=== PATIENT | female | born 1970 | race Caucasian/White ===

== ENCOUNTER 2017-06-30 15:33 | Emergency (ER) | payer OTHER ==
[~2017-06-30] VITALS: Ht 175.3 cm; Wt 112.0 kg
[~2017-06-30 15:33] MED LIST: ADVAIR 250-501 EACH INH; AMITIZA8 MCG PO; AMOXICILLIN500 MG PO; ANAPROX DS550 MG PO; ASPIRIN EC81 MG PO; AZASAN75 MG PO; BUTALB-ACETAMI1 EACH PO; CALAN SR240 MG PO; CALAN120 MG PO; CARAFATE1 GM/10 ML PO; CATAPRES-TTS 31 EACH TD; CHANTIX1 MG PO; DICYCLOMINE HCL10 MG PO; DULERA 200 MCG/13 GM INH; FIORICET-COD 31 EACH PO; FLOMAX0.4 MG PO; FLONASE2 SPRAY NS; GABAPENTIN600 MG PO; GEODON80 MG NG; GLUCOPHAGE500 MG PO; HALOPERIDOL2 MG PO; HUMALOG100 UNIT/1 SUB-Q; HYDROCODON-ACE1 EA11 PO; HYDROCODON-ACE1 EA14 PO; HYDROCODON-ACE1 EAC8 PO; HYOMAX0.125 MG PO; IBUPROFEN200 MG PO; IMITREX100 MG PO; IMURAN50 MG PO; KEFLEX500 MG PO; LANTUS100 UNITS/ SUB-Q; LEVOTHROID300 MCG PO; LIDODERM700 MG TOP; LOMOTIL TABLET1 EACH PO; LORAZEPAM0.5 MG PO; METOPROLOL TART50 MG PO; NORCO 10-325 T1 EACH PO; NORCO 7.5-3251 EACH PO; OMEPRAZOLE20 MG PO; PERCOCET 5-3251 EACH PO; PREDNISONE20 MG PO; PROMETHAZINE HC25 M1 PO; PROVENTIL HFA6.7 GM INH; RANITIDINE HCL150 MG PO; RANITIDINE HCL300 M1 PO; REGLAN10 MG PO; ROBAXIN-750750 MG PO; SIMVASTATIN20 MG PO; SULFAZINE EC500 MG PO; SUPER B COMPLE150 MG PO; TIZANIDINE HCL4 MG PO; TOPROL XL100 MG PO; TOPROL XL25 MG PO; TRAZODONE HCL100 MG PO; VENLAFAXINE HC225 MG PO; VENLAFAXINE HCL75 MG PO; VENTOLIN HFA18 GM IH; VENTOLIN HFA18 GM INH; VITAMIN D50000 UNIT PO; ZIPRASIDONE HCL60 MG PO; ZOFRAN ODT4 MG SL; ZOFRAN ODT8 MG PO; ZOFRAN8 MG PO
--- NOTE | 2017-06-30 18:33 | EKG ---
[facility] [address] [facility] [place] [address] Signed Sinus rhythm with occasional premature ventricular complexes Left axis deviation Abnormal ECG When compared with ECG of 29-SEP-2016 14:25, premature ventricular complexes are now present Confirmed by SUKHJINDER KHAN MD ([id number]) on 06/30/2017 6:33:39 PM Electronically Signed By: SUKHJINDER KHAN MD 06/30/17 1833 PATIENT NAME: CARLINE ESCOBAR MICHAEL Electrocardiogram DATE OF : 72 PHYSICIAN: SUKHJINDER KHAN MD REPORT #: [id number] REPORT IS CONFIDENTIAL AND NOT TO BE RELEASED WITHOUT AUTHORIZATION
== END 2017-06-30 18:32 | disposition home or self-care (01) ==
LOC: ED 15:33
DX: I49.3 Ventricular premature depolarization (principal); E86.0 Dehydration; E11.9 Type 2 diabetes mellitus without complications; I10 Essential (primary) hypertension; E03.9 Hypothyroidism, unspecified; J44.9 Chronic obstructive pulmonary disease, unspecified; F31.9 Bipolar disorder, unspecified; F17.200 Nicotine dependence, unspecified, uncomplicated; Z88.1 Allergy status to other antibiotic agents; Z91.048 Other nonmedicinal substance allergy status; Z88.8 Allergy status to other drugs, medicaments and biological substances; Z79.899 Other long term (current) drug therapy; Z79.4 Long term (current) use of insulin
CPT/HCPCS: 71045; 80053; 81001; 84484; 85025; 85610; 86850; 86900; 86901; 93005; 93010; 96374; 99284; J7040

== ENCOUNTER 2017-08-08 10:27 | Inpatient (IN) | payer OTHER ==
[~2017-08-08] VITALS: Ht 175.3 cm; Wt 122.8 kg
--- OUTSIDE RECORDS SUMMARY | ~2017-08-08 | XMS | Clinical Summary ---
Demographics + + + | Address | [address] | | | [place] [address] | + + + | Home Phone [...] | Organization | [facility] | | | and [facility] | + + + | Address | Unknown | + + + | Phone | Unavailable | + + + Support + + + + + | Name | Relationship | Address | Phone | + + + + + | Isabella Min | ECON | [address] | | | | | [place] [address] | | + + + + + Care Team Providers + +------+ + | Care Dispenser Operator Name | Role | Phone | [...] | 09/18 | | Activ | | [id number] | every 6 hours as | | [...] | 1971 | [phone] | [place] [address] | | | kristy | | | [phone] | | + +--------+ +--------+ + +
--- OUTSIDE RECORDS SUMMARY | ~2017-08-08 | XMS | Clinical Summary ---
Demographics + + + | Address | [address] | | | [place] [address] | + + + | Home Phone [...] + + + | Author | [facility] | + + + | Organization | [facility] | + + + | Address | [...] | + + +---------+ + | Stephan Johnosn | ECON | Unknown | | + + +---------+ + | Cristi Dave | ECON | Unknown | | + + +---------+ + Care Team Providers + +------+ + | Care Director Of Events Name | Role | Phone | + [...] | | | | Activ | | [id number] | mouth every 4 (four) | | [...] well.Last Cath: naLast Echo, | | 09/19/2015 ([facility]'s): TDS, mild concentric LVH, LVEF 65-70%, [...] | [place] | | | | [phone] | | | INTERNET SALES REPRESENTATIVE | | | | | + +--------+ [...] | [place]y | | | [phone] | [phone] | + +--------+ +--------+ + +
[2017-08-08] MEDS ORDERED: VERAPAMIL ER240 M1 PO (10:46)
[2017-08-08] MEDS ORDERED: ZIPRASIDONE HCL80 MG PO (10:54)
[2017-08-08] MEDS ORDERED: KHEDEZLA100 MG PO (10:55)
[2017-08-08] MEDS ORDERED: LYRICA150 MG PO (10:57)
[2017-08-08] MEDS ORDERED: ZEBUTAL 50-3251 EACH PO (10:58)
[2017-08-08] MEDS ORDERED: BUSPIRONE HCL10 MG PO (11:00)
[2017-08-08] MEDS ORDERED: METFORMIN HCL500 MG PO (11:01)
--- OUTSIDE RECORDS SUMMARY | 2017-08-08 11:35 | XMS | Clinical Summary ---
Demographics + + + | Address | [address] | | | [place] [address] | + + + | Home Phone | | + + + | Preferred Language | Unknown | + + + | Marital Status | Single | + + + | Restorationism Affiliation | Unknown | + + + | Race | Unknown | + + + | Ethnic Group | Unknown | + + + Author + + + | Author | [facility] | + + + | Organization | [facility] | + + + | Address | Unknown | + + + | Phone | Unavailable | + + + Support + + +---------+ + | Name | Relationship | Address | Phone | + + +---------+ + | Isabella Whitehead | ECON | Unknown | | + + +---------+ + | Robson Min | ECON | Unknown | | + + +---------+ + | Stephan Johnson | ECON | Unknown | | + + +---------+ + | Cristi Dave | ECON | Unknown | | + + +---------+ + Care Team Providers + +------+ + | Care Wood Scrap Handler Name | Role | Phone | + +------+ + | Bart Ba DO | PP | | + +------+ + Allergies + + + + + + | Active Allergy | Reactions | Severity | Noted | Comments | | | | | Date | | + + + + + + | Azithromycin | Rash | Medium | 03/21/20 | | | | | | 13 | | + + + + + + | Lamotrigine | Rash | Medium | 03/21/20 | | | | | | 13 | | + + + + + + | Adhesive Tape | Other (See Comments) | Medium | 03/21/20 | Skin sensitivity | | | | | 13 | | + + + + + + Current Medications + + + +---------+------+------+-------+ | Prescription | Sig. | Disp. | Refills | Star | End | Statu | | | | | | t | Date | s | | | | | | Date | | | + + + +---------+------+------+-------+ | simvastatin | Take 20 mg by mouth | | | | | Activ | | (ZOCOR) 20 MG tablet | nightly. | | | | | e | + + + +---------+------+------+-------+ | gabapentin | Take 300 mg by mouth | | | | | Activ | | (NEURONTIN) 600 MG | 3 (three) times | | | | | e | | tablet | daily. | | | | | | + + + +---------+------+------+-------+ | metoprolol | Take 50 mg by mouth | | | | | Activ | | (LOPRESSOR) 25 MG | 2 (two) times daily. | | | | | e | | tablet | | | | | | | + + + +---------+------+------+-------+ | ranitidine | Take 150 mg by mouth | | | | | Activ | | (ZANTAC) 150 MG | 2 (two) times | | | | | e | | tablet | daily. | | | | | | + + + +---------+------+------+-------+ | metFORMIN | Take 1,000 mg by | | | | | Activ | | (GLUCOPHAGE) 500 MG | mouth 2 (two) times | | | | | e | | tablet | daily with meals. | | | | | | + + + +---------+------+------+-------+ | LORazepam (ATIVAN) | Take 0.5 mg by mouth | | | | | Activ | | 0.5 MG tablet | every 6 (six) hours | | | | | e | | | as needed. | | | | | | + + + +---------+------+------+-------+ | ziprasidone | Take 80 mg by mouth | | | | | Activ | | (GEODON) 80 MG | 2 (two) times daily | | | | | e | | capsule | with meals. | | | | | | + + + +---------+------+------+-------+ | Cholecalciferol | Take 50,000 | | | | | Activ | | (VITAMIN D PO) | Units/day by mouth | | | | | e | | | once a week. | | | | | | + + + +---------+------+------+-------+ | azaTHIOprine | Take 50 mg by mouth | | | | | Activ | | (IMURAN) 50 MG | 2 (two) times daily. | | | | | e | | tablet | | | | | | | + + + +---------+------+------+-------+ | Albuterol Sulfate | Inhale into the | | | | | Activ | | (VENTOLIN HFA IN) | lungs as needed. | | | | | e | + + + +---------+------+------+-------+ | | Take 1 tablet by | | | | | Activ | | etatkmirvg-xjdcvmw-l | mouth every 4 (four) | | | | | e | | affeine (BUTALBITAL | hours as needed. | | | | | | | COMPOUND/ASA) | | | | | | | | 50-325-40 MG per | | | | | | | | tablet | | | | | | | + + + +---------+------+------+-------+ | | Inhale 1 puff into | 2 each | 0 | 12/0 | | Activ | | fluticasone-salmeter | the lungs 2 (two) | | | 6/20 | | e | | ol (ADVAIR DISKUS) | times daily. | | | 13 | | | | 250-50 MCG/DOSE | | | | | | | + + + +---------+------+------+-------+ | Nebulizer (medical | Dispense and provide | 1 each | 0 | 12/0 | | Activ | | device) | instruction as | | | 6/20 | | e | | | needed. | | | 13 | | | + + + +---------+------+------+-------+ | | Take 3 mLs by | 360 mL | 0 | 12/0 | | Activ | | ipratropium-albutero | nebulization 4 | | | 6/20 | | e | | l (DUONEB) 0.5-2.5 | (four) times daily | | | 13 | | | | mg/3mL | as needed. | | | | | | + + + +---------+------+------+-------+ | sulfaSALAzine | Take 500 mg by mouth | | | | | Activ | | (AZULFIDINE) 500 MG | 3 (three) times | | | | | e | | tablet | daily. | | | | | | + + + +---------+------+------+-------+ | omeprazole | Take 20 mg by mouth | | | | | Activ | | (PRILOSEC) 20 MG | every morning before | | | | | e | | capsule | breakfast. | | | | | | + + + +---------+------+------+-------+ | insulin lispro | Inject into the | | | | | Activ | | protamine-insulin | skin 2 (two) times | | | | | e | | lispro (HUMALOG | daily before meals. | | | | | | | 75/25) (75-25) 100 | kwikpen 35 units sc | | | | | | | UNIT/ML injection | bid | | | | | | + + + +---------+------+------+-------+ | venlafaxine | Take 225 mg by mouth | | | | | Activ | | (EFFEXOR-XR) 75 MG | daily with | | | | | e | | 24 hr capsule | breakfast. | | | | | | + + + +---------+------+------+-------+ | cloNIDine | Place 1 patch onto | 4 patch | 1 | 05/2 | | Activ | | (CATAPRES) 0.2 | the skin once a | | | 6/20 | | e | | MG/24HR | week. | | | 15 | | | + + + +---------+------+------+-------+ | lactobacillus | Take 1 packet by | 20 each | 1 | 05/2 | | Activ | | (FLORANEX) granules | mouth 2 (two) times | | | 6/20 | | e | | | daily. | | | 15 | | | + + + +---------+------+------+-------+ | traZODone | Take 100 mg by mouth | | | | | Activ | | (DESYREL) 100 MG | nightly. | | | | | e | | tablet | | | | | | | + + + +---------+------+------+-------+ | B Complex Vitamins | Take by mouth. | | | | | Activ | | (VITAMIN B COMPLEX) | | | | | | e | | TABS | | | | | | | + + + +---------+------+------+-------+ | levothyroxine | Take 50 mcg by mouth | | | | | Activ | | (SYNTHROID) 50 MCG | every morning | | | | | e | | tablet | before breakfast. | | | | | | + + + +---------+------+------+-------+ | pregabalin | Take 50 mg by mouth | | | | | Activ | | (LYRICA) 50 MG | 3 (three) times | | | | | e | | capsule | daily. | | | | | | + + + +---------+------+------+-------+ | tiZANidine | Take 4 mg by mouth | | | | | Activ | | (ZANAFLEX) 4 MG | every 6 (six) hours | | | | | e | | tablet | as needed. | | | | | | + + + +---------+------+------+-------+ | ziprasidone | Take 60 mg by mouth | | | | | Activ | | (GEODON) 60 MG | daily. | | | | | e | | capsule | | | | | | | + + + +---------+------+------+-------+ | | Take 1 tablet by | | | | | Activ | | HYDROcodone-acetamin | mouth every 6 (six) | | | | | e | | ophen (NORCO) | hours as needed for | | | | | | | 7.5-325 MG per | Pain. | | | | | | | tablet | | | | | | | + + + +---------+------+------+-------+ | busPIRone (BUSPAR) | Take 5 mg by mouth 2 | | | | | Activ | | 5 MG tablet | (two) times daily. | | | | | e | + + + +---------+------+------+-------+ | aspirin 81 MG | Take 81 mg by mouth | | | | | Activ | | tablet | daily. | | | | | e | + + + +---------+------+------+-------+ | insulin glargine | Inject into the | | | | | Activ | | (LANTUS) 100 UNIT/ML | skin nightly. | | | | | e | | injection | | | | | | | + + + +---------+------+------+-------+ | linaclotide | Take 145 mcg by | | | | | Activ | | (LINZESFany) 145 MCG | mouth every morning | | | | | e | | capsule | before breakfast. | | | | | | + + + +---------+------+------+-------+ Active Problems + + + | Problem | Noted Date | + + + | Metabolic encephalopathy | 09/06/2014 | + + + | Kussmaul breathing | 09/06/2014 | + + + | Acute respiratory alkalosis | 09/06/2014 | + + + | Methamphetamine abuse | 09/06/2014 | + + + | Drug overdose | 09/06/2014 | + + + | Hypokalemia | 09/06/2014 | + + + | Hypomagnesemia | 09/06/2014 | + + + | Hypophosphatemia | 09/06/2014 | + + + | Sinus tachycardia | 09/06/2014 | + + + | Bacterial pneumonia, unspecified | 03/21/2013 | + + + | COPD exacerbation | 03/21/2013 | + + + + + | Last Assessment & Plan: COPD, trying to quit.CT-chest, | | 03/22/2013: Scattered multifocal areas of scarring or atelectasis | | throughout the lungs. 2 cystic/cavitary lesions, right upper | | lobe, right lower lobe. Apparently, a repeat CT scan of the | | chest in 2014 when she was hospitalized for drug overdose, showed | | similar findings, perhaps the cavitary lesions were smaller in | | size. | + + + + + | Elevated brain natriuretic peptide (BNP) level | 03/21/2013 | + + + | Diabetes mellitus, type 2 | | + + + + + | Last Assessment & Plan: DM2, managed by PCP. | + + + +---+ | Hyperlipidemia | | + +---+ | Hypertension | | + +---+ + + | Last Assessment & Plan: Hypertension. 45yo WF, seems to | | be controlled today. She is complaining of chest discomfort, | | that appears to be relatively constant, prolonged. She has | | severe RA, history of pyoderma gangrenosa, activity quite | | limited. She is a long-time smoker, continues to smoke. Today's | | ECG normal, I reassured her that her chest discomfort is | | noncardiac in origin. I encouraged her to continue with her | | medications continue to try to stop smoking. She returns to her | | PCP, will follow her clinically as well.Last Cath: naLast Echo, | | 09/19/2015 [facility]): TDS, mild concentric LVH, LVEF 65-70%, | | no significant valvular stenosis or regurgitation, no Pericardial | | effusion.Last Stress Test,03/23/2013: Adenosine MPI, patchy | | uptake, but no ischemia or infarction, LVEF 60%.ECG, 10/16/2015: | | NSR, 85bpm. | + + + +---+ | Bipolar 2 disorder | | + +---+ | Current smoker | | + +---+ | RA (rheumatoid arthritis) | | + +---+ + + | Last Assessment & Plan: Advanced RA. | + + + +---+ | Obesity (BMI 30.0-34.9) | | + +---+ Resolved Problems + + + + | Problem | Noted | Resolved | | | Date | Date | + + + + | Hypoxemia | 03/21/20 | | | | 13 | 3 | + + + + | ARF (acute renal failure) | 03/21/20 | | | | 13 | 3 | + + + + | Hyponatremia | 03/21/20 | 12/06/201 | | | 13 | 3 | + + + + | Hyperkalemia | 03/21/20 | | | | 13 | 3 | + + + + | Abnormal LFTs | 03/21/20 | | | | 13 | 3 | + + + + | Hypomagnesemia | 03/21/20 | | | | 13 | 3 | + + + + Immunizations + + + + | Name | Dates Previously Given | Next Due | + + + + | Pneumococcal | 03/22/2013 | | | Polysaccharide | | | | 23-valent | | | + + + + Family History + + +------+ + | Medical History | Relation | Name | Comments | + + +------+ + | Diabetes | Father | | | + + +------+ + | Hypertension | Father | | | + + +------+ + | Diabetes | Mother | | | + + +------+ + | Hypertension | Mother | | | + + +------+ + | Heart Problems | Paternal | | | | | Grandfath | | | | | er | | | + + +------+ + | Heart Problems | Paternal | | | | | Grandmoth | | | | | er | | | + + +------+ + | Heart attack | Paternal | | | | | Uncle | | | + + +------+ + + +------+ + + | Relation | Name | Status | Comments | + +------+ + + | Father | | Alive | | + +------+ + + | Mother | | Alive | | + +------+ + + | Paternal Grandfather | | | | + +------+ + + | Paternal Grandmother | | | | + +------+ + + | Paternal Uncle | | | | + +------+ + + Social History + + + +--------+------+ | Tobacco Use | Types | Packs/Day | Years | Date | | | | | Used | | + + + +--------+------+ | Current Every Day | Cigarettes | 2 | 20 | | | Smoker | | | | | + + + +--------+------+ + +---+---+---+ | Smokeless Tobacco: | | | | | Never Used | | | | + +---+---+---+ + + | Tobacco Cessation: Ready to Quit: No; Counseling Given: Yes | + + + + +---------+ + | Alcohol Use | Drinks/We | oz/Week | Comments | | | ek | | | + + +---------+ + | Yes | 0 | 0.0 | | | | Standard | | | | | drinks or | | | | | | | | | | equivalen | | | | | t | | | + + +---------+ + + + + | Sex Assigned at | Date Recorded | | | | + + + | Not on file | | + + + Last Filed Vital Signs + + + + | Vital Sign | Reading | Time Taken | + + + + | Blood Pressure | 128/68 | 10/16/2015 10:59 AM PDT | + + + + | Pulse | 94 | 10/16/2015 10:59 AM PDT | + + + + | Temperature | 37.1 C (98.8 F) | 09/11/2014 3:36 PM PDT | + + + + | Respiratory Rate | 18 | 10/16/2015 10:59 AM PDT | + + + + | Oxygen Saturation | 94% | 10/16/2015 10:59 AM PDT | + + + + | Inhaled Oxygen | - | - | | Concentration | | | + + + + | Weight | 112.4 kg (247 lb | 10/16/2015 10:59 AM PDT | | | 12.8 oz) | | + + + + | Height | 174 cm (5' 8.5") | 10/16/2015 10:59 AM PDT | + + + + | Body Mass Index | 37.13 | 10/16/2015 10:59 AM PDT | + + + + Plan of Treatment + + + + + | Health Maintenance | Due Date | Last Done | Comments | + + + + + | Diabetic Eye Exam | | | | | | 2 | | | + + + + + | Diabetic Foot Exam | | | | | | 2 | | | + + + + + | Microalbumin | | | | | Screening | 2 | | | + + + + + | Vaccine: | | | | | Dtap/Tdap/Td (1 - | 1 | | | | Tdap) | | | | + + + + + | Cervical Cancer | | | | | Screening (Pap) | 3 | | | + + + + + | Hemoglobin A1c | | 09/06/2014, 03/21/2013 | | | | 5 | | | + + + + + | Vaccine: Influenza | | | | | (Season Ended) | 8 | | | + + + + + | Vaccine: | Completed | 03/22/2013 | | | Pneumococcal 19-64 | | | | | (PPSV23 only) Medium | | | | | Risk | | | | + + + + + Results Not on filefrom Last 3 Months Insurance + +--------+ +------+-------+ + | Payer | Benefi | Subscriber | Type | Phone | Address | | | t Plan | ID | | | | | | / | | | | | | | Group | | | | | + +--------+ +------+-------+ + | MEDICAID | [place] | xxxxxxxx | | | [address] | | | [address] | | | | [place] | | | [place] | | | | [phone] | | | RN CLINICAL | | | | | + +--------+ +------+-------+ + + +--------+ +--------+ + + | Guarantor Name | Accoun | Relation to | Date | Phone | Billing Address | | | t Type | Patient | of | | | | | | | | | | + +--------+ +--------+ + + | CARLINE MIN | Person | Self [birth year] | Home: | [address] | | al/Fam | | 1971 | [phone] [place] | | | [place] | | [phone] | + +--------+ +--------+ + +
--- OUTSIDE RECORDS SUMMARY | 2017-08-08 11:35 | XMS | Clinical Summary ---
Demographics + + + | Address | [address] | | | [place] [address] | + + + | Home Phone | | + + + | Preferred Language | Unknown | + + + | Marital Status | Single | + + + | Judaism Affiliation | Unknown | + + + | Race | Unknown | + + + | Ethnic Group | Unknown | + + + Author + + + | Author | [facility] | | | and [place] | + + + | Organization | [facility] | | | and [place] | + + + | Address | Unknown | + + + | Phone | Unavailable | + + + Support + + + + + | Name | Relationship | Address | Phone | + + + + + | Isabella Min | ECON | [address] | | | | | [place] [address] | | + + + + + Care Team Providers + +------+ + | Care Drywall Professional Name | Role | Phone | + +------+ + | Bart Ba DO | PP | | + +------+ + Allergies + + + + + + | Active Allergy | Reactions | Severity | Noted | Comments | | | | | Date | | + + + + + + | Azithromycin | | | 09/10/19 | | | | | | 12 | | + + + + + + | Lamotrigine | | | 10/08/19 | | | | | | 12 | | + + + + + + Current Medications + + +---------+---------+------+------+-------+ | Prescription | Sig. | Disp. | Refills | Star | End | Statu | | | | | | t | Date | s | | | | | | Date | | | + + +---------+---------+------+------+-------+ | SUMAtriptan | 04/20-1 tablet by | | | 08/18 | | Activ | | (IMITREX) 100 mg | mouth daily as | | | 08/06 | | e | | tablet | needed migraine | | | 12 | | | + + +---------+---------+------+------+-------+ | | One tablet by mouth | | | 09/18 | | Activ | | [id number] | every 6 hours as | | | 05/08 | | e | | affeine (BUTALBITAL | needed for migraine | | | 12 | | | | COMPOUND/ASA) per | | | | | | | | tablet | | | | | | | + + +---------+---------+------+------+-------+ | levothyroxine | Take 300 mcg by | | | | | Activ | | (SYNTHROID, | mouth Daily. | | | | | e | | LEVOTHROID) 300 MCG | | | | | | | | tablet | | | | | | | + + +---------+---------+------+------+-------+ | azaTHIOprine | Take 75 mg by mouth | | | 06/0 | | Activ | | (AZASAN) 75 MG TABS | 2 times daily. | | | 5/20 | | e | | | | | | 12 | | | + + +---------+---------+------+------+-------+ | ziprasidone | Take 80 mg by mouth | | | 06/0 | | Activ | | (GEODON) 60 MG | Daily. | | | 5/20 | | e | | capsule | | | | 12 | | | + + +---------+---------+------+------+-------+ | traZODone | Take 300 mg by mouth | | | | | Activ | | (DESYREL) 100 mg | nightly. | | | | | e | | tablet | | | | | | | + + +---------+---------+------+------+-------+ | promethazine | Take 25 mg by mouth | | | | | Activ | | (PHENERGAN) 25 mg | 3 times daily as | | | | | e | | tablet | needed. | | | | | | + + +---------+---------+------+------+-------+ | dicyclomine | Take 1 capsule by | 150 | 3 | 06/0 | | Activ | | (BENTYL) 10 mg | mouth every 6 hours | capsule | | 4/20 | | e | | capsule | as needed. | | | 14 | | | + + +---------+---------+------+------+-------+ | omeprazole | Take 1 capsule by | 90 | 3 | 06/0 | | Activ | | (PRILOSEC) 20 mg | mouth every morning | capsule | | 4/20 | | e | | capsule | (before breakfast). | | | 14 | | | + + +---------+---------+------+------+-------+ | | Take 1 tablet by | | | 05/2 | | Activ | | HYDROcodone-acetamin | mouth every 4 hours | | | 08/06 | | e | | ophen (NORCO) | as needed. | | | 12 | | | | 7.5-325 mg per | | | | | | | | tablet | | | | | | | + + +---------+---------+------+------+-------+ | LANTUS SOLOSTAR | Inject 20 Units | | | 02/0 | | Activ | | 100 UNIT/ML | under the skin | | | 10/06 | | e | | injection (pen) | nightly. | | | 17 | | | + + +---------+---------+------+------+-------+ | levothyroxine | Take one tablet | | | 04/19 | | Activ | | (SYNTHROID, | daily | | | 10/06 | | e | | LEVOTHROID) 50 mcg | | | | 17 | | | | tablet | | | | | | | + + +---------+---------+------+------+-------+ | ROMEZESS 290 MCG | Take one capsule | | | 01/3 | | Activ | | capsule | daily | | | 1/20 | | e | | | | | | 17 | | | + + +---------+---------+------+------+-------+ | LYRICA 75 MG | Take one capsule | | | 01/1 | | Activ | | capsule | three times daily | | | 6/20 | | e | | | | | | 17 | | | + + +---------+---------+------+------+-------+ | sulfaSALAzine | Take 1,000 mg by | | | 01/1 | | Activ | | (AZULFIDINE) 500 MG | mouth 2 times daily. | | | 6/20 | | e | | EC tablet | | | | 17 | | | + + +---------+---------+------+------+-------+ | cloNIDine | Place 1 patch onto | | | 01/2 | | Activ | | (CATAPRES) 0.3 mg/24 | the skin Once a | | | 0/20 | | e | | hr | week. | | | 17 | | | + + +---------+---------+------+------+-------+ | metFORMIN | Take 1,000 mg by | | | | | Activ | | (GLUCOPHAGE) 500 mg | mouth 2 times daily | | | | | e | | tablet | (with breakfast & | | | | | | | | dinner). | | | | | | + + +---------+---------+------+------+-------+ | aspirin 81 MG | Take 81 mg by mouth | | | | | Activ | | tablet | Daily. | | | | | e | + + +---------+---------+------+------+-------+ | busPIRone (BUSPAR) | Take 5 mg by mouth 2 | | | | | Activ | | 5 mg tablet | times daily. | | | | | e | + + +---------+---------+------+------+-------+ | tiZANidine | Take 4 mg by mouth | | | | | Activ | | (ZANAFLEX) 4 mg | nightly. | | | | | e | | tablet | | | | | | | + + +---------+---------+------+------+-------+ | CHANTIX CONTINUING | Take 1 mg by mouth 2 | | | 02/0 | | Activ | | MONTH JAYA 1 MG | times daily. | | | 2/20 | | e | | tablet | | | | 17 | | | + + +---------+---------+------+------+-------+ | ziprasidone | Take 80 mg by mouth | | | | | Activ | | (GEODON) 80 MG | nightly. | | | | | e | | capsule | | | | | | | + + +---------+---------+------+------+-------+ | ergocalciferol | Take 50,000 Units by | | | | | Activ | | (VITAMIN D-2) 50,000 | mouth Once a week. | | | | | e | | units capsule | | | | | | | + + +---------+---------+------+------+-------+ | simvastatin | Take 20 mg by mouth | | | | | Activ | | (ZOCOR) 20 mg tablet | nightly. | | | | | e | + + +---------+---------+------+------+-------+ | venlafaxine | Take 75 mg by mouth | | | | | Activ | | (EFFEXOR) 75 MG | Daily. | | | | | e | | tablet | | | | | | | + + +---------+---------+------+------+-------+ | VENTOLIN HFA 108 | Inhale 2 puffs into | | | | | Activ | | (90 BASE) MCG/ACT | the lungs every 4 | | | | | e | | inhaler | hours as needed for | | | | | | | | Wheezing. | | | | | | + + +---------+---------+------+------+-------+ Active Problems + + + | Problem | Noted Date | + + + | Bipolar II disorder (HCC) | 05/23/2015 | + + + | Alveolar hypoventilation | 05/23/2015 | + + + | COPD, mild (HCC) | 04/24/2014 | + + + | Type II diabetes mellitus (HCC) | 10/11/2012 | + + + | Rheumatoid arthritis (HCC) | 10/11/2012 | + + + | Hypothyroidism | 10/11/2012 | + + + | Tobacco use disorder | 10/11/2012 | + + + | HYPERTENSION | | + + + Resolved Problems + + + + | Problem | Noted | Resolved | | | Date | Date | + + + + | Hypoxia, sleep related | 09/07/19 | | | | 14 | 7 | + + + + | Chronic bronchitis (HCC) | 10/19/19 | | | | 13 | 6 | + + + + | OTHER DISEASES OF LUNG NOT ELSEWHERE CLASSIFIED | 09/10/19 | | | | 12 | 3 | + + + + | Other nonspecific abnormal finding of lung field | | | | | | 6 | + + + + | Bronchiectasis (HCC) | | | | | | 3 | + + + + | Empyema lung (HCC) | | | | | | 3 | + + + + + + | Overview: right | + + + +---+ + | Abnormal chest CT | | | | | | 3 | + +---+ + Immunizations + + + + | Name | Dates Previously Given | Next Due | + + + + | INFLUENZA PF 18 Y OR | 01/17/2014, 02/17/2013, 02/03/2012 | | | >,TRIVALENT | | | | RECOMBINANT | | | + + + + | INFLUENZA PF | 02/17/2016, 02/15/2015 | | | QUAD(PED/ADOL/ADULT) | | | | ,PSKT or VIAL | | | + + + + | PNEUMOCOCCAL | 04/24/2014 | | | CONJUGATE 13-VALENT | | | | (PCV13) | | | + + + + | PNEUMOCOCCAL | 03/19/2013, 04/04/2009 | | | POLYSACCHARIDE | | | | 23-VALENT (PPSV23) | | | + + + + Family History + + +------+ + | Medical History | Relation | Name | Comments | + + +------+ + | Tuberculosis | Brother | | | + + +------+ + | Anemia | Brother | | | + + +------+ + | Allergies | Brother | | | + + +------+ + | Allergies | Father | | | + + +------+ + | Diabetes | Father | | | + + +------+ + | Hypertension | Father | | | + + +------+ + | Obesity | Father | | | + + +------+ + | Other (see comment) | Father | | hypothyroid | + + +------+ + | Ulcer Disease | Father | | | + + +------+ + | Allergies | Mother | | | + + +------+ + | Diabetes | Mother | | | + + +------+ + | Emphysema | Mother | | | + + +------+ + | Hypertension | Mother | | | + + +------+ + | Obesity | Mother | | | + + +------+ + | Other (see comment) | Mother | | epilepsy | + + +------+ + | Ulcer Disease | Mother | | | + + +------+ + | Colon cancer | Other | | family hx | + + +------+ + | Prostate cancer | Other | | family hx | + + +------+ + | Arthritis | Other | | family hx of | + + +------+ + | Other (see comment) | Paternal | | rheumatic fever | | | Grandfath | | | | | er | | | + + +------+ + | Arthritis | Paternal | | | | | Grandmoth | | | | | er | | | + + +------+ + | Hypertension | Paternal | | | | | Grandmoth | | | | | er | | | + + +------+ + | Stroke | Paternal | | | | | Grandmoth | | | | | er | | | + + +------+ + + +------+--------+ + | Relation | Name | Status | Comments | + +------+--------+ + | Brother | | | | + +------+--------+ + | Brother | | | | + +------+--------+ + | Brother | | | | + +------+--------+ + | Father | | Alive | | + +------+--------+ + | Mother | | Alive | | + +------+--------+ + | Other | | | | + +------+--------+ + | Other | | | | + +------+--------+ + | Other | | | | + +------+--------+ + | Paternal Grandfather | | | | + +------+--------+ + | Paternal Grandmother | | | | + +------+--------+ + Social History + + + +--------+ + | Tobacco Use | Types | Packs/Day | Years | Date | | | | | Used | | + + + +--------+ + | Current Every Day | Cigarettes | 0.3 | 20 | Started: 07/25/1983 | | Smoker | | | | | + + + +--------+ + + +---+---+---+ | Smokeless Tobacco: | | | | | Never Used | | | | + +---+---+---+ + + | Tobacco Cessation: Ready to Quit: No; Counseling Given: No | | Comments: 05/26/16: Currently using Chantix | + + + + +---------+ + | Alcohol Use | Drinks/We | oz/Week | Comments | | | ek | | | + + +---------+ + | Yes | 0 | 0.0 | Rare | | | Standard | | | [...] + + + | Blood Pressure | 110/72 | 05/26/20161033 PST | + + + + | Pulse | 92 | 05/26/20161033 PST | + + + + | Temperature | 36.8 C (98.3 F) | 11/01/20131518 PDT | + + + + | Respiratory Rate | 16 | 11/01/20131518 PDT | + + + + | Oxygen Saturation | 94% | 05/26/20161033 PST | + + + + | Inhaled Oxygen | - | - | | Concentration | | | + + + + | Weight | 115.4 kg (254 lb 8 | 05/26/20161033 PST | | | oz) | | + + + + | Height | 167.6 cm (5' 6") | 05/26/20161033 PST | + + + + | Body Mass Index | 41.08 | 05/26/20161033 PST | + + + + Plan of Treatment + + + + + | Health Maintenance | Due Date | Last Done | Comments | + + + + + | Diabetic Eye Exam | | | | | (Bi-Annually) | 0 | | | + + + + + | Diabetic Foot Exam | | | | | | 0 | | | + + + + + | Vaccine: | | | | | Dtap/Tdap/Td (1 - | 1 | | | | Tdap) | | | | + + + + + | CERVICAL CANCER | | | | | SCREENING (PAP EVERY | 3 | | | | 3 YEARS 21-64 ) | | | | + + + + + | Hemoglobin A1c Q3 | | 07/27/2013 | | | Months | 4 | | | + + + + + | Microalbumin | | | | | Screening | 5 | | | + + + + + | Vaccine: Influenza | | 02/17/2016, 02/15/2015, | | | (Season Ended) | 8 | 01/17/2014, Additional history | | | | | exists | | + + + + + | Vaccine: | Completed | 03/19/2013, 04/04/2009 | | | Pneumococcal 19-64 | | | | | (PPSV23 only) Medium | | | | | Risk | | | | + + + + + Results Not on filefrom Last 3 Months Insurance + +--------+ +--------+ +---------+ | Payer | Benefi | Subscriber | Type | Phone | Address | | | t Plan | ID | | | | | | / | | | | | | | Group | | | | | + +--------+ +--------+ +---------+ | [employer] | [employer] | [phone] | Medica | [phone] | | MEDICAID HMO | HEALTH | | id | [phone] | | | | MDCD | | | | | | | [place] | | | | | + +--------+ +--------+ +---------+ + +--------+ +--------+ + + | Guarantor Name | Accoun | Relation to | Date | Phone | Billing Address | | | t Type | Patient | of | | | | | | | | | | + +--------+ +--------+ + + | CARLINE MIN | Person | Self [birth year] | Home: | [address] | | | al/Toni | | 1971 | [phone] | [place] [address] | | | kristy | | | [phone] | | + +--------+ +--------+ + +
--- OUTSIDE RECORDS SUMMARY | 2017-08-08 11:36 | XMS | Clinical Summary ---
Demographics + + + | Address | [address] | | | [place] [address] | + + + | Home Phone | | + + + | Preferred Language | Unknown | + + + | Marital Status | Single | + + + | Anabaptist Affiliation | Unknown | + + + | Race | Unknown | + + + | Ethnic Group | Unknown | + + + Author + + + | Author | [facility] | + + + | Organization | [facility] | + + + | Address | [...] Team Providers + +------+ + | Care Javascript Engineer Name | Role | Phone | + [...] | | | | Activ | | [id number] | mouth every 4 (four) | | [...] well.Last Cath: naLast Echo, | | 09/19/2015 ([facility]): TDS, mild concentric LVH, LVEF [...] | [place] | | | | [phone] | | | [employer] | | | | | + +--------+ [...] | kristy | | | [phone] | [phone] | + +--------+ +--------+ + +
--- OUTSIDE RECORDS SUMMARY | 2017-08-08 11:36 | XMS | Clinical Summary ---
Demographics + + + | Address | [address] | | | [place] [address] | + + + | Home Phone | | + + + | Preferred Language | Unknown | + + + | Marital Status | Single | + + + | Scientology Affiliation | Unknown | + + + | Race | Unknown | + + + | Ethnic Group | Unknown | + + + Author + + + | Author | [facility] | | | and [facility] | + + + | Organization | [facility] | | | and [facility] | + + + | Address | Unknown | + + + | Phone | Unavailable | + + + Support + + + + + | Name | Relationship | Address | Phone | + + + + + | Isabella Min | ECON | [address] | | | | | [place] [address] | | + + + + + Care Team Providers + +------+ + | Care Family Health Nurse Practitioner Name | Role | Phone | + [...] | 09/18 | | Activ | | [id number] | every 6 hours as | | [...] | 1971 | [phone] | [place] [address] | | | kristy | | | [phone] | | + +--------+ +--------+ + +
--- NOTE | 2017-08-08 16:21 | NUR ---
ASSESSMENT COMPLETED, PT VERY SLEEPY, OPENS EYES TO VOICE BUT FALLS ASLEEP QUICKLY. PT RESTING WITH HOB ELEVATED.
--- NOTE | 2017-08-08 16:55 | NUR ---
CPAP BACK IN PLACE, PT SINDY WELL.
--- NOTE | 2017-08-08 18:03 | NUR ---
PT SLEEPING SOUNDLY AT THIS TIME, VITALS WNL, PT SINDY CPAP WELL.
--- NOTE | 2017-08-08 18:05 | NUR ---
PT CAME TO UNIT AT ABOUT 1600, WAS ABLE TO TRANSFER TO BED WITH STANDBY ASSIST. PT SLIGHTLY CONFUSED AND HAD A VERY FLAT AFFECT. PT DENIES PAIN, NAUSEA, AND SOB AT THIS TIME. PT C/O WEAKNESS IN ALL LIMBS AND NUMBNESS/TINGLING. PT COOPERATIVE. PT NOT ORIENTED TO TIME OF DAY OR DAY OF THE WEEK. PT ABLE TO VOID LARGE AMOUNT USING BEDSIDE COMMODE. WHEN PT NOT ON CPAP SHE USES 4L VIA OXY MASK. PT ABLE TO ANSWER MOST OF 'S QUESTIONS. IV SITE IN RT UPPER ARM INTACT, NO REDNESS OR SWELLING, FLUIDS INFUSING EAISLY. BLOOD GLUCOSE 273, 5 UNITS INSULIN GIVEN. PT ORDERED DINNER, THEN FELL ASLEEP SHORTLY AFTER, HOWEVER WAS ABLE TO SINDY SIPS OF WATER AND 7-UP. VITALS WNL. PT SLEEPING SOUNDLY WITH CPAP IN PLACE. NICOTINE PATCH IN PLACE.
--- NOTE | 2017-08-08 19:10 | NUR ---
SHIFT REPORT RECEIVED FROM MARTHA NORTH. PT IS CURRENTLY EATING DINNER, HER SON AND GRANDDAUGHTER ARE IN THE ROOM. 4L O2 VIA NC IN PLACE. IVF INFUSING WNL.
--- NOTE | 2017-08-08 20:30 | NUR ---
ASSESSMENT COMPLETED. PT IS ALERT/ORIENTED AT THIS TIME, AFFECT IS FLAT. REPORTS 8/10 GENERALIZED PAIN WITH MUSCLE SPASMS, PRN NORCO AND ZANAFLEX GIVEN. LUNGS SOUND DIMINISHED AT THIS TIME, R.T. HAS BEEN IN TO GIVE BREATHING TREATMENT, 4L O2 VIA NC IN PLACE. HR REGULAR, SLIGHTLY TACHY AT 100-105. BOWEL TONES ACTIVE, DENIES NAUSEA, REPORTS SHE HASN'T HAD A BM SINCE 08/05, SENNA AND MIRALAX GIVEN. IV PATENT, INFUSING WNL. SKIN APPEARS GROSSLY INTACT, JOINTS APPEAR RE-FORMED D/T R.A. AND SHE HAS SCARS TO HER LOWER LEGS AND UPPER BACK, NO EDEMA NOTED. PT REPORTS NUMBNESS IN TINGLING IN HANDS AND FEET THAT SHE REPORTS IS NOT NORMAL FOR HER. CB, 3 UNITS NOVOLIN AND 10 UNITS LEVEMIR ADMINISTERED. PT PROVIDED WITH FRUIT CUP AND DIET SODA PER REQUEST. DENIES FURTHER NEEDS AT HIS TIME.
--- NOTE | 2017-08-08 21:00 | NUR ---
PT PLACED ON BIPAP AT 2049, PT REMOVED AT THIS TIME STATES "ITS MAKING ME TOO HOT." 4L O2 VIA NC REPLACED ON PT. PT STATES THAT HER PAIN IS NOT ANY BETTER, I EXPLAINED TO PT THAT IT WILL TAKE A LITTLE TIME FOR PAIN MEDICATION TO TAKE EFFECT. PRN TYLENOL ADMINISTERED AT THIS TIME. PT PROVIDED WITH ICE WATER AND JOE CRACKER PER REQUEST. PT STATES SHE IS TIRED AND READY TO SLEEP, WILL CONTINUE TO MONITOR.
--- NOTE | 2017-08-08 21:00 | NUR ---
PT PLACED ON BIPAP AT 2049, PT WAS RELUCTANT TO WEAR IT STATING SHE DIDN'T WANT TO. EXPLAINED THE BENEFITS OF WEARING IT AND ASKED PT TO TRY AND LEAVE IT ON FOR ONE HOUR. PT STATED SHE WAS AGREEABLE TO THIS PLAN, HOWEVER, PT REMOVED BIPAP AT THIS TIME AND IS REFUSING TO WEAR IT, STATES "ITS MAKING ME TOO HOT." 4L O2 VIA NC REPLACED ON PT. PT STATES THAT HER PAIN IS NOT ANY BETTER, I EXPLAINED TO PT THAT IT WILL TAKE A LITTLE TIME FOR PAIN MEDICATION TO TAKE EFFECT. PRN TYLENOL ADMINISTERED AT THIS TIME. PT PROVIDED WITH ICE WATER AND JOE CRACKER PER REQUEST. PT STATES SHE IS TIRED AND READY TO SLEEP, WILL CONTINUE TO MONITOR.
--- NOTE | 2017-08-08 22:44 | NUR ---
PT APPEARS TO BE SLEEPING AT THIS TIME, NO APPARENT DISTRESS. RESPIATIONS EVEN AND UNLABORED, 4L O2 VIA NC IN PLACE. RR:17, SPO2: 92%. HR:100. IVF INFUSING WNL. WILL ALLOW FOR REST AND CONTINUE TO MONITOR.
--- NOTE | 2017-08-08 23:09 | NUR ---
PT CALLED AND REQUESTED TO USE BATHOOM, UP TO BSC WITH SBA, VOIDED 950ML AND THEN RETUNED TO BED. OFFERED TO PLACE PT ON BIPAP BUT SHE CONINUES TO REFUSE. DENIES SOB. LUNGS SOUND DIMINISHED THROUGHOUT, 4L O2 VIA NC REMAINS IN PLACE, RR:26, SPO2: 94%. PT PROVIDED WITH ICE WATER AND ANOTHE DIET SODA. DENIES FURTHER REQUESTS AT THIS TIME, CALL LIGHT IS WITHIN REACH.
--- NOTE | 2017-08-09 00:11 | NUR ---
PT SLEEPING AT THIS TIME, NO APPARENT DISTRESS. RESPIRATIONS EVEN AND UNLABORED, RR:17, SPO2: 100% ON 4L O2. HR:95. WILL ALLOW FOR REST AND CONTINUE TO MONITOR.
--- NOTE | 2017-08-09 00:45 | NUR ---
PT CALLED AND REPORTED 8/10 GENERALIZED PAIN. NOT TIME FOR PRN PAIN MEDICATION, DR. ALBARADO CALLED AND ORDER RECEIVED FOR 1 TIME DOSE OF PO NORCO 7.5/325MG. PT THEN UP TO BSC TO VOID AND THEN RETURN TO BED. PT CONTINUES TO REFUSE BIPAP, 4L O2 VIA NC REMAINS IN PLACE. FRESH ICE WATER PROVIDED. NO FURTHER REQUESTS AT THIS TIME, WILL CONTINUE TO MONITOR.
--- NOTE | 2017-08-09 02:00 | NUR ---
PT UP TO BSC WITH SBA TO VOID AND THEN RETURNED TO BED. DIET SODA PROVIDED PER REQUEST. NO FURTHER REQUESTS AT THIS TIME.
--- NOTE | 2017-08-09 02:40 | NUR ---
0200: AFTER RETURNING TO BED FROM BS, PT'S BP: 190/96(118). AFTER RESTING IN BED FOR 15MIN BP: 190/101(123). CALLED DR. ALBARADO AND RECEIVED ONE TIME ORDER FOR 10MG IV HYDRALAZINE, GIVEN AT THIS TIME. PT UP TO [facility] AGAIN AT THIS TIME AND THEN RETURNED TO BED. PRN TYLENOL GIVEN FOR HEADACHE. NO FURTHER REQUESTS AT THIS TIME.
--- NOTE | 2017-08-09 03:20 | NUR ---
PT CALLED AND REPORTS HEADACHE PAIN AND STUFFY NOSE. PT ALREADY RECEIVED TYLENOL, EXPLAINED IT STILL NEEDS A LITTLE TIME TO TAKE EFFECT. I ADDED HUMIDITY TO PT'S OXYGEN AND GAVE HER SOME SALINE TO FLUSH OUT HER NOSE. COOL CLOTH APPLIED TO FOREHEAD. WILL ALLOW FOR REST AND CONTINUE TO MONITOR.
--- NOTE | 2017-08-09 03:33 | NUR ---
OXYGENT TITRATED TO 3L FOR DESATRATION TO MID 80%. SPO2 NOW 91%.
--- NOTE | 2017-08-09 04:26 | NUR ---
CALLED DR. ALBARADO REGARDING PT'S BP AND PERSISTENT HEADACHE. AT 0400 BP: 188/97(117) AND AT 0420 BP: 188/95 (117). ORDERS RECEIVED FOR ONE TIME DOSE OF 15MG IV TORADOL.
--- NOTE | 2017-08-09 04:39 | NUR ---
UP TO BSC TO VOID AND THEN RETURNED TO BED. PT NOW RESTING WITH EYES CLOSED. OXYGEN TITRATED TO 2L. SPO2:95%. WILL CONTINUE TO MONITOR.
--- NOTE | 2017-08-09 05:13 | NUR ---
OXYGEN TITRATED TO 3L FOR DESATURATION TO 87-88%. SPO2 NOW 93%. PT NOW SLEEPING, RR:20, HR:107.
--- NOTE | 2017-08-09 06:24 | NUR ---
CALLED DR. ALBARADO PER PT'S HIGH BP. AT 0600: 191/102 (124) AND AT 0615: 196/104 (126). RECEIVED ORDERS FOR CLONIDINE PATCH.
--- NOTE | 2017-08-09 06:51 | NUR ---
CLONIDINE PATCH APPLIED TO RIGHT CHEST. OXYGEN TITRATED TO 4L FOR SPO2:86-88%. SPO2 NOW 94%.
--- NOTE | 2017-08-09 07:50 | NUR ---
AT BEDSIDE AT THIS TIME ASSESSING PT. UPDATED PLAN OF CARE WITH PT.
--- NOTE | 2017-08-09 11:10 | NUR ---
PT C/O OF ITCHING IN LAC. SLIGHT REDNESS NOTED WHERE TURNIQUET WAS APPLIED. NO HIVES NOTED. DENIES ITCHING IN OTHER AREAS. INFORMED PT REDNESS AND ITCHING MAY BE A RESULT OF TURNIQUET. WILL CONTINUE TO MONITOR SITE.
--- NOTE | 2017-08-09 11:25 | NUR ---
DR. ALBARADO AT BEDSIDE TO DISCUSS NEB TREATMENTS.
--- NOTE | 2017-08-09 11:33 | NUR ---
RT IN ROOM TO GIVE NEB TREATMENT AT THIS TIME.
--- NOTE | 2017-08-09 12:17 | NUR ---
PT NOTED TO BE HYPERTENSIVE WITH BP OF 204/104. PER DR. ALBARADO, GIVE PRN HYDRALAZINE 10MG FOR SYSTOLIC GREATER THAN 180.
--- NOTE | 2017-08-09 14:20 | NUR ---
PT INVITED ME INTO HER RM. SHE WAS LAYING IN BED, RESTLESS AND STATED RIGHT OFF THAT SHE JUST WANTS TO GO HOME AND REST. PT WAS USING O2 NC, AND SEEMED TO FEEL COMFORTABLE WITH ME AND REQUESTED PRAYER. I SUGGESTED SHE MIGHT WANT TO TRY [employer]IC CHANNEL TO HELP SOOTH HER. NOT MUCH OF A RE- SPONSE. WILL FOLLOW NEEDED
--- NOTE | 2017-08-09 15:50 | NUR ---
PT AMBULATED TO SHOWER ROOM WITH 4L O2 VIA NC, TOLERATED WELL. PT ASSISTED WITH HYGIENE CARE. PT AMBULATED BACK TO ROOM WITH 4L O2 VIA NC AND PLACED BACK ON MONITOR.
--- NOTE | 2017-08-09 16:10 | NUR ---
PT NOTED TO BE MORE DROWSY. END TIDAL CO2 PLACED ON PT AT THIS TIME. ETCO2 NOTED TO BE 56-60. WILL CONTINUE TO MONITOR.
[2017-08-09] MEDS ORDERED: TRAZODONE HCL100 MG PO (17:31)
[2017-08-09] MEDS ORDERED: LEVOTHYROXINE50 MCG PO (17:38)
--- NOTE | 2017-08-10 00:10 | NUR ---
SHIFT CHANGE REPORT DONE AT 1945. IN TO SEE PT AT 1999. PT ASKING ABOUT HS MEDS AT THAT TIME. REPORTS NO HEADACHE, ONLY KNEES HURTING. ALERT AND ORIENTED AT THAT TIME. PT UP TO BSC AT 2099. VOIDED 200ML DARK URINE. ASKING FOR HER PAIN MEDICATION. 1 TAB NORCO GIVEN PO FOR KNEE PAIN 08/26. PT CURRENTLY SLEEPING. ETCO2 MONITOR REMAINS ON. AWAKENS AND GOES BACK TO SLEEP. DENIES NEEDS.
--- NOTE | 2017-08-10 00:55 | NUR ---
PT UP TO VOID AT 0040. NO OTHER NEEDS.
--- NOTE | 2017-08-10 00:55 | NUR ---
RT IN TO SEE PT.
--- NOTE | 2017-08-10 04:35 | NUR ---
PT C/O NOT BEING ABLE TO SLEEP AT 0300. CURRENTLY ASLEEP. BP 190/97. 10MG HYDRALAZINE GIVEN IV. SPO2 90%.
--- NOTE | 2017-08-10 05:30 | NUR ---
PT C/O HEADACHE 01/26. RECHECKED BP 183/90. AM VERAPAMIL GIVEN NOW. 1 TAB NORCO GIVEN FOR PAIN.
--- NOTE | 2017-08-10 05:50 | NUR ---
PT CRYING C/O OF HEADACHE AND FEELING NAUSEOUS. CALLED DR ALBARADO TO UPDATE ON BP. 10MG HYDRALAZINE GIVEN IV.
--- NOTE | 2017-08-10 05:51 | NUR ---
EMPTIED BSC AFTER VOID. 24 HOUR URINE COLLECTION STARTED.
--- NOTE | 2017-08-10 07:30 | NUR ---
BEDSIDE REPORT RECIEVED. PATIENT IS AWAKE, C/O HEADACHE.
--- NOTE | 2017-08-10 08:30 | NUR ---
ROUTINE MEDS GIVEN WELL MOTRIN 400 MG PO GIVEN FOR HEADACHE PAIN.
--- NOTE | 2017-08-10 09:00 | NUR ---
SAT UP IN BED TO TAKE 100% OF BREAKFAST.
--- NOTE | 2017-08-10 09:10 | NUR ---
SPONGE BATH GIVEN. PATIENT REFUSED SHOWER. DR. ALBARADO HERE TO SEE PATIENT, IRENA RECIEVED TO TRANSFER TO MEDICAL FLOOR.
--- NOTE | 2017-08-10 10:19 | NUR ---
stand by assit as patient ambulated to bedside commode then into recliner. pt resting comfortably, call light within reach. no further needs at this time.
--- NOTE | 2017-08-10 11:11 | NUR ---
IS BED RESTING. IS WITHOUT C/O.
--- NOTE | 2017-08-10 13:13 | NUR ---
STAND BY ASSIST PATIENT AMBULATED IN THE HALLWAY.PATIENT REPORTS NO SHORTNESS OF BREATH OR DISCOMFORT WHILE AMBULATING. REMAINED ON O2 WHILE AMBULATING, OXYGEN SATURATION AT 93 PERCENT AFTER PATIENT RETURNED TO ROOM.
--- NOTE | 2017-08-10 14:18 | NUR ---
PT SITTING IN CHAIR, WITH BLIND PULLED. SHE RECOGNIZED ME AND TOLD ME THAT THE PRAYER HAS HELPED-SHE IS FEELING BETTER. PT REALLY WANTS TO GO HOME. WE DISCUSSED THE IMPORTANCE OF BEING WELL ENOUGH TO HEAD HOME, RATHER THAN GOING EARLY AND HAVING DIFFICULTY. PT REQUESTED PRAYER, WILL FOLLOW NEEDED
--- NOTE | 2017-08-10 15:52 | NUR ---
MED REC COMPLETE WITH BIMART REFILL HISTORY.
--- NOTE | 2017-08-10 16:00 | NUR ---
NAPPING, ASSESSMENT DEFERED. NO DISTRESS NOTED.
--- NOTE | 2017-08-10 17:00 | NUR ---
HAS BEEN SLEEPING, WOKE FOR MEDICATION AND ACCUCHECK, ACCUCHECK 141, 1 UNIT INSULIN SQ GIVEN.
--- NOTE | 2017-08-10 18:00 | NUR ---
SITTING AT BEDSIDE TO EAT.
--- NOTE | 2017-08-10 18:15 | NUR ---
TOOK DINNER WELL, REMAINS VERY SLEEPY. IS ABLE TO RESPOND APPROP WHEN QUESTIONS ASKED.
--- NOTE | 2017-08-10 19:45 | NUR ---
PT SHIFT REPORT RECEIVED FROM DAY SHIFT RN. ALL QUESTIONS ANSWERED. PT IS RESTING IN BED AT THIS TIME. PT IS CURRENTLY DOING A 24HR URINE ANALYSIS. WILL STOP AT 0600. NO OTHER ISSUES AT THIS TIME. WILL CONTINUE TO CLOSELY MONITOR.
--- NOTE | 2017-08-10 21:10 | NUR ---
PT ASSESSMENT COMPLETED AND NIGHT TIME MEDICATIONS ADMINISTERED. PT COMPLAINS OF 7/10 PAIN IN BACK/GENERALIZED WHICH IS HER GENERALIZED CHRONIC PAIN. BREATH SOUNDS ARE CLEAR. BOWEL TONES ACTIVE. ASSISTED TO TO BATHROOM. PT TOLERATED WELL. VITALS COMPLETED. APPLIED NYSTATIN UNDER BREASTS AND PANNUS. PT STATES SHE FEELS MUCH BETTER TODAY. PT DENIES HEADAHCE. WILL CONTINUE TO CLOSELY MONITOR AT THIS TIME. FRESH WATER AT BEDSIDE.
--- NOTE | 2017-08-10 22:00 | NUR ---
PT RESTING IN BED. PT DENIES ANY NEEDS AT THIS TIME. WILL CONTINUE TO CLOSLEY MONITOR. PT CALLS APPROPRIATELY.
--- NOTE | 2017-08-11 00:35 | NUR ---
PT ASSISTED TO BATHROOM WITH SUPERVISOR LOADING. PT COMPLAINING OF HEADAHCE. GAVE PRN IBUPROFEN FOR HEADACHE. CALLED RT TO GIVE NEB TREATMENT PER PT REQUEST. PT DENIES ANY OTHER NEEDS AT THIS TIME. WILL CONTINUE TO CLOSELY MONITOR.
--- NOTE | 2017-08-11 01:15 | NUR ---
PT STATES SHE CAN'T SLEEP. PT STATES HER MUSCLES ARE TENSE AND SHE CANT SLEEP AT THIS TIME. GAVE PRN DOSE OF TRAZADONE AND MUSCLE RELAXERS. PT DENIES ANY OTHER NEEDS AT THIS TIME. WILL CONTINUE TO CLOSELY MONITOR.
--- NOTE | 2017-08-11 04:15 | NUR ---
PT RESTING IN BED. PT WANTS TO HAVE NEB TREATMENT. WILL CONTINUE TO CLOSELY MONITOR. PT DENIES ANY NEEDSA AT THIS TIME. WILL CONTINUE TO CLOSELY MONITOR.
--- NOTE | 2017-08-11 06:10 | NUR ---
PT COMPLAINING OF PAIN AND HEADACHE. GAVE PRN PAIN MEDICATION AND IBUPROFEN. PT DENIES ANY OTHER NEEDS AT THIS TIME. WILL CONTINUE TO CLOSELY MONITOR.
[2017-08-11] MEDS ORDERED: PREDNISONE10 MG PO (08:17)
--- NOTE | 2017-08-11 09:45 | NUR ---
IV MAGNESIUM HURTING PATIENT'S ARM. IV RATE SLOWED DOWN AND DR. ALBARADO UPDATED. DR. ALBARADO TO ORDER PO MAGNESIUM FOR PATIENT TO GO HOME WITH.
[2017-08-11] MEDS ORDERED: MAG-OXIDE400 MG PO (09:49)
--- NOTE | 2017-08-11 13:32 | NUR ---
FAXED FACESHEET, ORDER, RT HOME O2 QUALIFIER AND DC SUMMARY TO IN HOME MED FOR THE PT TO HAVE O2 24 HOURS A DAY INSTEAD OF JUST AT NIGHT. TALKED WITH ARVIND FROM IN HOME. RECIEVED FAX CONFIRMATION.
== END 2017-08-11 11:05 | disposition home or self-care (01) | DRG 190 ==
LOC: ED 10:27 → CCU 15:43
PROVIDERS: ADMIT Internal Medicine
PROC: 5A09357 Assistance with Respiratory Ventilation, Less than 24 Consecutive Hours, Continuous Positive Airway Pressure (ICD-10-PCS; principal; 2017-08-08)
DX: J44.1 Chronic obstructive pulmonary disease with (acute) exacerbation (principal); J96.01 Acute respiratory failure with hypoxia; I67.4 Hypertensive encephalopathy; M06.9 Rheumatoid arthritis, unspecified; E11.9 Type 2 diabetes mellitus without complications; I25.10 Atherosclerotic heart disease of native coronary artery without angina pectoris; F17.200 Nicotine dependence, unspecified, uncomplicated; R91.1 Solitary pulmonary nodule; R51 Headache; E83.42 Hypomagnesemia; I10 Essential (primary) hypertension; E03.9 Hypothyroidism, unspecified; F31.9 Bipolar disorder, unspecified; F43.10 Post-traumatic stress disorder, unspecified; I25.2 Old myocardial infarction; K58.9 Irritable bowel syndrome, unspecified; F41.9 Anxiety disorder, unspecified; Z79.4 Long term (current) use of insulin; Z79.891 Long term (current) use of opiate analgesic; Z99.81 Dependence on supplemental oxygen; Z79.899 Other long term (current) drug therapy
CPT/HCPCS: 36415; 36600; 70450; 71045; 71260; 80048; 80053; 81001; 82043; 82803; 83735; 83880; 84100; 84155; 84156; 84165; 84166; 85025; 85379; 94640; 94660; 94761; 96372; 99285; J0360; J1650; J1885; J2920; J3475; J7030; J7500; Q9967

== ENCOUNTER 2017-11-20 14:45 | Emergency (ER) | payer OTHER ==
[~2017-11-20] VITALS: Ht 175.3 cm; Wt 117.9 kg
[~2017-11-20 14:45] MED LIST changes: +BUSPIRONE HCL10 MG PO; +KHEDEZLA100 MG PO; +LEVOTHYROXINE50 MCG PO; +LYRICA150 MG PO; +MAG-OXIDE400 MG PO; +METFORMIN HCL500 MG PO; +PREDNISONE10 MG PO; +VERAPAMIL ER240 M1 PO; +ZEBUTAL 50-3251 EACH PO; +ZIPRASIDONE HCL80 MG PO
== END 2017-11-20 19:15 | disposition home or self-care (01) ==
LOC: ED 14:45
PROC: 0T9B70Z Drainage of Bladder with Drainage Device, Via Natural or Artificial Opening (ICD-10-PCS; principal; 2017-11-20)
DX: T50.905A Adverse effect of unspecified drugs, medicaments and biological substances, initial encounter (principal); F64.9 Gender identity disorder, unspecified; E03.9 Hypothyroidism, unspecified; J44.9 Chronic obstructive pulmonary disease, unspecified; F31.9 Bipolar disorder, unspecified; E11.9 Type 2 diabetes mellitus without complications; I10 Essential (primary) hypertension; F17.200 Nicotine dependence, unspecified, uncomplicated; Z88.1 Allergy status to other antibiotic agents; Z88.8 Allergy status to other drugs, medicaments and biological substances; Z79.899 Other long term (current) drug therapy
CPT/HCPCS: 36600; 51701; 71045; 80053; 81001; 82803; 84484; 85025; 96360; 99285; G0480; J7030

== ENCOUNTER 2018-04-15 15:17 | Emergency (ER) | payer OTHER ==
[~2018-04-15] VITALS: Ht 175.3 cm; Wt 117.9 kg
== END 2018-04-15 15:35 | disposition home or self-care (01) ==
LOC: ED 15:17
DX: R06.02 Shortness of breath (principal)

== ENCOUNTER 2018-06-14 11:38 | Inpatient (IN) | payer OTHER ==
[~2018-06-14] VITALS: Ht 175.3 cm; Wt 113.8 kg
[~2018-06-14 11:38] MED LIST changes: -BUSPIRONE HCL10 MG PO; +BUSPIRONE HCL5 MG PO; +GEODON60 MG PO; -LEVOTHROID300 MCG PO; -LEVOTHYROXINE50 MCG PO; +SYNTHROID100 MCG PO; +SYNTHROID300 MCG PO; -ZIPRASIDONE HCL80 MG PO
--- OUTSIDE RECORDS SUMMARY | 2018-06-14 11:40 | XMS ---
PreManage Notification: CARLINE ESCOBAR Security Chief Relay Tester Events No recent Security Events currently on file CRITERIA MET - [facility] PROVID[facility] McconnellLynn calderón Edge Setter/Flight Surveyor 01/17/2018-Current PHONE: [phone] Ruchi Clay Edge Setter/Flight Surveyor 01/17/2018-Current PHONE: [phone] Ruchi Clay Primary Care 01/17/2018-Current PHONE: [phone] Edgardo has no Care Guidelines for this patient. E.D. VISIT COUNT (12 MO.) 5 [facility] TOTAL 5 NOTE: Visits indicate total known visits. ED/UCC VISIT TRACKING (12 MO.) 06/14/2018 11:38 [facility] [place] TYPE: Emergency COMPLAINT: - ALT MENTAL STATUS 04/15/2018 15:17 [facility] [place] TYPE: Emergency COMPLAINT: - COLD SYMPTOMS/SOB DIAGNOSES: - Shortness of breath 11/20/2017 14:45 [facility] [place] TYPE: Emergency COMPLAINT: - COLD, WEAK DIAGNOSES: - Hypothyroidism, unspecified - Type 2 diabetes mellitus without complications - Allergy status to other antibiotic agents status - Allergy status to other drugs, medicaments and biological substances status - Essential (primary) hypertension - Other jail (current) drug therapy - Adverse effect of unspecified drugs, medicaments and biological substances, initial encounter - Bipolar disorder, unspecified - Chronic obstructive pulmonary disease, unspecified - Tremor, unspecified - Gender identity disorder, unspecified - Nicotine dependence, unspecified, uncomplicated 08/08/2017 10:27 [facility] [place] TYPE: Emergency COMPLAINT: - ALTERED LOC/HEADACHE 06/30/2017 15:33 [facility] [place] TYPE: Emergency COMPLAINT: - CHEST PAIN DIAGNOSES: - MCC (current) use of insulin - Essential (primary) hypertension - Allergy status to other antibiotic agents status - Ventricular premature depolarization - Type 2 diabetes mellitus without complications - Nicotine dependence, unspecified, uncomplicated - Dehydration - Hypothyroidism, unspecified - Chronic obstructive pulmonary disease, unspecified - Other jail (current) drug therapy - Bipolar disorder, unspecified - Allergy status to other drugs, medicaments and biological substances status - Palpitations - Other nonmedicinal substance allergy status INPATIENT VISIT TRACKING (12 MO.) 08/08/2017 15:[address] [facility] [place] TYPE: Critical Care COMPLAINT: - COPD EXACERBATION DIAGNOSES: - Essential (primary) hypertension - Bipolar disorder, unspecified - Atherosclerotic heart disease of [place] coronary artery without angina pectoris - Headache - Hypertensive encephalopathy - Post-traumatic stress disorder, unspecified - Rheumatoid arthritis, unspecified - Anxiety disorder, unspecified - Other terminal system operator (current) drug therapy - MCC (current) use of insulin - superintendent container terminal (current) use of opiate analgesic - Type 2 diabetes mellitus without complications - Irritable bowel syndrome without diarrhea - Nicotine dependence, unspecified, uncomplicated - Hypothyroidism, unspecified - Old myocardial infarction - Hypomagnesemia - Chronic obstructive pulmonary disease with (acute) exacerbation - Acute respiratory failure with hypoxia - Solitary pulmonary nodule - Dependence on supplemental oxygen [email or web address]
[2018-06-14] MEDS ORDERED: NORCO 7.5-3251 EACH PO (12:48)
[2018-06-14] MEDS ORDERED: DEMADEX20 MG PO (12:48)
--- NOTE | 2018-06-14 17:40 | NUR ---
PT ARRIVES TO CCU AT THIS TIME TO ROOM 129 VIA GURNEY. PT IS SITTING UPRIGHT BUT DROWSY, EYES CLOSED BUT OPENS THEM TO HER NAME. BUT STATES "NO" WHEN I ASK HER IF SHE'S IN ANY PAIN. THIS RN ASSISTED PT ON HER FEET TO HER BED. NO WOUNDS NOTICED ANYWHERE ON HER BACKSIDE. PT PLACED ON CONTINUOUS TELE. ADMISSION VS STABLE. ON 4 L/MIN O2 VIA NC.
--- NOTE | 2018-06-14 18:27 | NUR ---
PT LOUDLY MOANING, CRYING OUT, MOVING AROUND IN BED, QUITE ANXIOUS- 1 MG PRN ATIVAN GIVEN AT THIS TIME. BED ALARM IN PLACE. VISIBLE FROM NURSES STATION.
--- NOTE | 2018-06-14 18:43 | NUR ---
PT MORE RELAXED AFTER 1 MG ATIVAN- PT DOSING IN AND OUT OF SLEEP, WHEN ASLEEP, NOTICING PT HAS MOMENTS OF APNEA AND O2 SAT DROPPED TO 73. IMMEDIATELY CAME BACK UP TO 93 WITH BREATHES.
--- NOTE | 2018-06-14 19:52 | NUR ---
PT SLEEPING, AWAKENS TO REPEATED VOICE COMMANDS BUT UNABLE TO STAY AWAKE FOR LONG. PT WAS ABLE TO STATE DATE OF , DID NOT ANSWER OTHER QUESTIONS BUT DOES FOLLOW DIRECTIONS. HAS RARE LOOSE COUGH, CUP FOR SPEC AT BEDSIDE. OCC MOANS. PASSING GAS. T 99, IS SL DIAPHORETIC, BLANKET OFF PT.
--- NOTE | 2018-06-14 20:43 | NUR ---
MOANING INTERMMITANTLY, STATES HURTS ALL OVER. IS IMPULSIVE BUT WILL FOLLOW SOME DIRECTIONS, GIVEN 500MG TYLENOL FOR DISCOMFORT. SINDY NEB WELL.
--- NOTE | 2018-06-14 22:05 | NUR ---
MOANS IN SLEEP BUT OVERALL MORE RESTFUL.
--- NOTE | 2018-06-15 00:16 | NUR ---
OVER PAST HOUR HAS BEEN MORE AWAKE AND C/O OF INCREASED PAIN. PAIN AT FIRST WAS ON L SIDE AND THEN ALL OVER. ATTEMPTED REPOSTIONING PT TO HELP WITH PAIN BUT WAS STILL PAINFUL. ALSO HAVING MUSCLE SPASMS. DR KHAN CALLED AND ORDER FOR TORRADOL RECIEVED. PT GIVEN 30MG TORRADOL FOR PAIN AND 1MG ATIVAN FOR MUSCLE SPASMS AND ANXIETY. PT IS IMPULSIVE BUT DIRECTABLE. C/O NEED TO VOID AND REMINDED OF DASILVA.
--- NOTE | 2018-06-15 03:42 | NUR ---
HAVE NOTED SLEEP APNEA AT TIMES THROUGH NIGHT AND ALSO HAS TIMES OF SHALLOW RESPIRATIONS. SATS NOW OCC DIPPING TO 70'S, PT CHANGED TO OXYMASK IS A MOUTH BREATHER, ALSO REPOSITIONED UP IN BED. THIS DID AWAKEN PT ENOUGH FOR HER TO COUGH. HAS SOME COURSE BREATH TONES MOSES ON RT POST BUT ALSO SOME UPPER AIRWAY CONGESTION. ALSO DIFFICULT TO ASSESS LUNG SOUNDS DUE TO SHALLOW BREATHING. DOES AWAKEN TO SOFT TOUCH BUT UNABLE TO STAY AWAKE.
--- NOTE | 2018-06-15 04:15 | NUR ---
SATS DIPPING TO 70'S MORE FREQ. PT REPOSITIONED TO SIDE. PT DID AWAKEN AND CONFIRMED SHE HAD BEEN DIAGNOSED WITH SLEEP APNEA AND USES A CPAP MACHINE OCCASIONALLY. SHE STATES THERE IS A PROBLEM WITH THE CORD, NO FURTHER ELABORATION. FALLS ASLEEP QUICKLY.
--- NOTE | 2018-06-15 04:46 | NUR ---
HAS BEEN MORE AWAKE THE PAST HALF HOUR THOUGH STILL HAS EPISODES OF SLEEP APNEA. C/O SHOULDER AND BACK PAIN, GIVEN 500MG TYLENOL PO. ALSO HELPED TO POSITION ON LEFT SIDE.
--- NOTE | 2018-06-15 06:26 | NUR ---
PT HAS BEEN MORE COMFORTABLE PAST HR. SLEEPS OFF AND ON. DID DRINK A GLUCERNA WAS HUNGRY. SATS ON4L NC ARE UPPERS 80'S ARE LOW 90'S WHEN 4L OXYMASK. IS NOW ON TELEPHONE WITH HER MOM.
--- NOTE | 2018-06-15 07:20 | NUR ---
REPORT RECIEVED, PATIENT TO COMMODE TO ATTEMPT TO HAVE BM, UNABLE TO HAVE BM, TO CHAIR. ASSESSMENT DONE. TALKED WITH PATIENT ABOUT PLAN OF CARE FOR DAY. IS FAIRLY STEADY ON FEET. DASILVA CATH IS PATENT.IVF INFUSING TO LEFT WRIST SITE.
--- NOTE | 2018-06-15 08:00 | NUR ---
ACCUCHECK 182. NOVOLOG INSULIN 4 UNITS IV GIVEN. TOOK BREAKFAST WELL. DENIES NAUSEA.
--- NOTE | 2018-06-15 09:00 | NUR ---
REMAINS IN CHAIR. ROUTINE MEDICATIONS GIVEN.
--- NOTE | 2018-06-15 09:45 | NUR ---
SLEEPING, NO DISTRESS NOTED.
--- NOTE | 2018-06-15 10:00 | NUR ---
DR. KHAN HERE TO SEE PATIENT. ORDERS RECIEVED TO DC DASILVA CATH, DECREASE IVF TO 50 ML/HR. THESE BOTH DONE. DASILVA EMPTIED FOR 160 ML.
--- NOTE | 2018-06-15 10:40 | NUR ---
ambulated to shower.
--- NOTE | 2018-06-15 11:00 | NUR ---
TOLERATED SHOWER WELL. IS FAIRLY STABLE ON FEET. TO BED AFTER SHOWER.
--- NOTE | 2018-06-15 11:53 | NUR ---
TO COMMODE TO EXPELL LARGE FORMED STOOL WITH URINE. BACK TO BED W/O INCIDENT.
--- NOTE | 2018-06-15 12:10 | NUR ---
C/O SEVERE STOMACH CRAMPS AND GENERALIZED ARTHRITIS, TORDOL 30 MG IV GIVEN.
--- NOTE | 2018-06-15 13:30 | NUR ---
SLEEPING SINCE TORDOL GIVEN. NO DISTRESS NOTED.
--- NOTE | 2018-06-15 14:00 | NUR ---
OUT OF BED TO CHAIR. STATES SHE FEELS BETTER NOW. IS INN GOOD SPIRITS.
--- NOTE | 2018-06-15 16:03 | NUR ---
BACK TO BED, ASSESSMENT UNCHANGED. C/O MILD GENERALIZED DISCOMFORT.
--- NOTE | 2018-06-15 16:30 | NUR ---
TRANSFERRED TO MED-SURG ORDERS RECIEVED.
--- NOTE | 2018-06-15 17:00 | NUR ---
AMBULATED TO ROOM 113 FROM 129. TOLERATED AMBULATION WELL. REPORT TO LEA THOMAS ON MED-SURG.
--- NOTE | 2018-06-15 17:20 | NUR ---
PT AMBULATED TO ROOM FROM CCU WITH FWW AND SLOW BUT STEADY GAIT. BEDSIDE REPORT WAS RECEIVED FROM MARTHA MULLEN. VSS. ASSESSMENT COMPLETED. PT'S DINENR ARRIVED AND IS SITTING UP EATING DINNER. MAINTAINING O2 SAT IN MID TO HIGH 90'S ON 4LPNC. PT DENIES SOB BUT STATES HER "ARTHRITIS IS STARTING TO HURT AGAIN". cALL LIGHT AND H20 IN REACH.
[2018-06-15] MEDS ORDERED: BUSPIRONE HCL5 MG PO (17:40)
[2018-06-15] MEDS ORDERED: BRINTELLIX10 MG PO (17:44)
[2018-06-15] MEDS ORDERED: ONDANSETRON HCL4 MG PO (17:45)
[2018-06-15] MEDS ORDERED: BUPRENORPHINE1 EAC1 TD (17:45)
--- NOTE | 2018-06-15 17:47 | NUR ---
Meds reconciled with pharmacy records
--- NOTE | 2018-06-15 19:20 | NUR ---
IN ROOM FOR REPORT, PT IS RESTING WITH EYES CLOSED. RESPIRATIONS ARE EVEN AND NONLABORED. CALL LIGHT IS CLOSE.
--- NOTE | 2018-06-15 21:37 | NUR ---
ADMINISTERED MEDICATIONS AND COMPLETED ASSESSMENT. PT REPORTS "LITTLE" PAIN AT THIS TIME 06/26. SHE IS ON 4 LNC AND IS PRETTY DROWSEY AT THIS TIME, FALLING ASLEEP DURING THE ASSESSMENT. VS ARE STABLE AND VANCO IS INFUSING. SHE DENIES NEEDS AT THIS TIME. CALL LIGHT IS WITHIN REACH.
--- NOTE | 2018-06-16 00:02 | NUR ---
PT'S IV INFILTRATED, MOBILE APPLICATION DEVELOPER IS ATTEMPTING TO START ANOTHER ONE AT THIS TIME.
--- NOTE | 2018-06-16 00:56 | NUR ---
PT REPORTS 6/10 PAIN IN ARMS, SHOULDERS AND LEGS. ADMINISTERED TYLEONL. PT DENIES FURTHER NEEDS. JAWBONE PULLER ALVINA IS HERE TO START IV.
--- NOTE | 2018-06-16 01:29 | NUR ---
NEW IV WAS STARTED BY ALVINA THOMAS SCIENTIFIC DIVER. PT'S LR BAG IS INFUSING AGAIN AND ALMOST COMPLETE. CEFIPIME IS INFUSING AT THIS TIME. PT DENIES FURTHER NEEDS. CALL LIGHT IS CLOSE.
--- NOTE | 2018-06-16 02:16 | NUR ---
PT REPORTS FEELING ANXIOUS AND REQUESTED NICOTINE PATCH. PUT IN NIO FOR LOZENGES BECAUSE PT HAS ALLERGY TO ADHESIVES. PT REPORTS SMOKING 1-2 PACKS PER DAY. SHE DENIES FURTHER NEEDS. CALL LIGHT IS CLOSE.
--- NOTE | 2018-06-16 03:11 | NUR ---
PT IS RESTING WITH EYES CLOSED, RESPIRATIONS ARE EVEN AND NONLABORED. CALL LIGHT IS CLOSE.
--- NOTE | 2018-06-16 03:25 | NUR ---
CALL LIGHT ON. pt REQUESTED A DIET COLA AND ICE; PROVIDED. REQUESTED PAIN MEDICATION FOR A 6/10 HEADACHE, EDUCATED ON PAIN MANAGEMENT AND PAIN MEDICATION FREQUENCY, pt ACKNOWLEDGED EDUCATION. PRIMARY NURSE UPDATED. CALL LIGHT WITHIN REACH.
--- NOTE | 2018-06-16 04:56 | NUR ---
PT IS RESTING WITH EYES CLOSED, RESPIRATIONS ARE EVEN AND NONLABORED. CALL LIGHT IS CLOSE.
--- NOTE | 2018-06-16 06:27 | NUR ---
PT IS RESTING WITH EYES CLOSED, RESPIRATIONS ARE EVEN AND NONLABORED. CALL LIGHT IS CLOSE.
[2018-06-16] MEDS ORDERED: CEFPODOXIME PR200 MG PO (08:17)
[2018-06-16] MEDS ORDERED: DOXYCYCLINE MO100 MG PO (08:18)
[2018-06-16] MEDS ORDERED: METFORMIN HCL500 MG PO (08:19)
[2018-06-16] MEDS ORDERED: IMURAN50 MG PO (08:21)
--- NOTE | 2018-06-16 08:26 | NUR ---
PATIENT RESTING IN BED. PATIENT REFUSED SHOWER TODAY. ICE WATER GIVEN. CALL LIGHT WITHIN REACH. NO OTHER NEEDS AT THIS TIME
--- NOTE | 2018-06-16 09:15 | NUR ---
PT EXPECTING TO DC THIS AM.
--- NOTE | 2018-06-16 09:20 | NUR ---
PT SITTING UP EATING BREAKFAST IN BED, AM MEDS ADMINISTERED. ASSESSMENT COMPLETED. CALL LIGHT AND H20 IN REACH. PT REPORTS HEADACHE REQUESTED AND RECEIVED PRN PO TYLENOL. PT DENIES FURTHER NEEDS/CONCERNS.
--- NOTE | 2018-06-16 09:52 | NUR ---
PATIENT RESTING IN BED. RESPIRATORY THERAPIST IN ROOM. VITAL SIGNS AND I&O DONE. CALL LIGHT WITHIN REACH. NO OTHER NEEDS AT THIS TIME
--- NOTE | 2018-06-16 11:24 | NUR ---
PT REPORTS GENERALIZED ACHING "IT'S MY ARTHRITIS FLARING UP AGAIN IT HURTS IN ALL MY JOINTS IT'S TEN OUT OF TEN". DR KHAN NOTIFIED. MD TO ORDER 15MG TORADOL IV. PER MD CEFAPIME ABX RATE INCREASED TO INFUSE OVER 30MINUTES. CALL LIGHT AND H2O IN REACH AND PT UPDATED ON POC.
== END 2018-06-16 12:10 | disposition home or self-care (01) | DRG 871 ==
LOC: ED 11:38 → CCU 16:31 → MS 06-15 17:20
PROVIDERS: ADMIT Internal Medicine
DX: A41.50 Gram-negative sepsis, unspecified (principal); J15.6 Pneumonia due to other Gram-negative bacteria; G93.41 Metabolic encephalopathy; J44.0 Chronic obstructive pulmonary disease with (acute) lower respiratory infection; J96.11 Chronic respiratory failure with hypoxia; F11.20 Opioid dependence, uncomplicated; M06.9 Rheumatoid arthritis, unspecified; G89.4 Chronic pain syndrome; E11.21 Type 2 diabetes mellitus with diabetic nephropathy; F17.200 Nicotine dependence, unspecified, uncomplicated; I10 Essential (primary) hypertension; E03.9 Hypothyroidism, unspecified; F31.9 Bipolar disorder, unspecified; F43.10 Post-traumatic stress disorder, unspecified; K58.9 Irritable bowel syndrome, unspecified; F41.9 Anxiety disorder, unspecified; I25.2 Old myocardial infarction; K21.9 Gastro-esophageal reflux disease without esophagitis; Z88.1 Allergy status to other antibiotic agents; Z99.81 Dependence on supplemental oxygen; Z88.8 Allergy status to other drugs, medicaments and biological substances; Z79.1 Long term (current) use of non-steroidal anti-inflammatories (NSAID); Z79.4 Long term (current) use of insulin; Z79.899 Other long term (current) drug therapy
CPT/HCPCS: 36415; 51701; 71045; 74177; 80053; 81001; 83036; 83605; 83735; 85025; 87449; 87502; 87899; 94640; 94667; 94668; 99285-25; 99406; J0692; J1650; J1815; J1885; J1956; J2060; J3010; J3370; J3475; J7030; J7060; J7120; Q9967

== ENCOUNTER 2019-04-18 07:01 | Emergency (ER) | payer OTHER ==
[~2019-04-18] VITALS: Ht 165.1 cm; Wt 98.0 kg
--- OUTSIDE RECORDS SUMMARY | ~2019-04-18 | XMS | Encounter Summary ---
Demographics + + + | Address | [address] | | | [place] [address] | + + + | Home Phone | | + + + | Preferred Language | Unknown | + + + | Marital Status | Single | + + + | Druze Affiliation | CHR | + + + [...] | | | | | [place] [address] | | + + + + + Care Team Providers + +------+ + | Care Regional Construction Manager Name | Role | Phone | + +------+ + PCP | Unavailable | + +------+ + Encounter Details +--------+ + + + + | Date | Type | Department | Care Team | Description | +--------+ + + + + | 10/29/ | Respiratory | | Other, Faculty | | | 2006 | Therapy | | [phone] | | +--------+ + + + + [...] | + +--------+ + + + | DOSING ONLY, ADULT | Routin | 10/29/2005 | | Results for this | | | e | 6:00 PM | | procedure are in the | | | | PDT | | results section. | + +--------+ + + + documented in this encounter Results DOSING ONLY, ADULT (10/29/2005 6:00 PM PDT) + + + + + + | Component | Value | Ref Range | Performed | Pathologist | | | | | At | Signature | + + + + + + | [facility] | PATIENTS PAIN ASSESSED | | | | | ONLY ADULT | AND WAS TWO ON A SCALE | | | | | | OF ZERO TO 10. | | | | | | BRONCHODILATOR DOSING: | | | | | | RAD SCORING: OCCASIONAL | | | | | | DYSPNEA, SPEAKS IN | | | | | | PARTIALSENTENCES, O2 | | | | | | SATURATION > 90% > 4 | | | | | | LPM, MUST HAVE HEAD OF | | | | | | BED ELEVATED, NOWHEEZES, | | | | | | NO ACCESSORY MUSCLE | | | | | | USE. 6 = RAD SCORE | | | | | | BEFORE DOSING. | | | | | | OPTIMALDOSE OF ALBUTEROL | | | | | | = 4 PUFFS. AFTER | | | | | | DOSING: OCCASIONAL | | | | | | DYSPNEA, SPEAKS | | | | | | INPARTIAL SENTENCES, O2 | | | | | | SATURATION > 90% > 4 | | | | | | LPM, MUST HAVE HEAD OF | | | | | | BEDELEVATED, NO WHEEZES, | | | | | | NO ACCESSORY MUSCLE | | | | | | USE. 6 = RAD SCORE AFTER | | | | | | DOSING. DIMINISHED . | | | | | | STRONG PRODUCTIVE | | | | | | COUGH: THICK COATES SPUTUM. | | | | | | NO | | | | | | CHANGES,CONTINUE CURRENT | | | | | | THERAPY. Lio Ambrosio, | | | | | | VIDEO PRODUCTION COORDINATOR | | | | + + + [...] [facility] | [address] | [place], [place] | | | DIAGNOSTICS - | [address] | [address] | | | PULMONARY FUNCTION | | | | + + + + + documented in this encounter Visit Diagnoses Not on filedocumented in this encounter"
--- OUTSIDE RECORDS SUMMARY | ~2019-04-18 | XMS | Encounter Summary ---
Demographics + + + | Address | [address] | | | [place] [address] | + + + | Home Phone | | + + + | Preferred Language | Unknown | + + + | Marital Status | Single | + + + | Restorationist Affiliation | Unknown | + + + | Race | Unknown | + + + | Ethnic Group | Unknown | + + + Author + + + | Author | [facility] | | | and [place] | + + + | Organization | [facility] | | | and [...] | | | | | [place] [address] | | + + + + + | Robson Min | ECON | Unknown | | + + + + + | Isabella Whitehead | ECON | Unknown | | + + + + + Care Team Providers + +------+ + | Care Transportation Superintendent Name | Role | Phone | + [...] + | Closed | | Radiology | Procedures | Samayoa, | | | | | | MRI Brain | Jimbo Box, | | | | | | w graciela | [address] | | | | | | Cont[address] | [address], | | | | | | | [place] | | | | | | | [place] | | | | | | | [address] | | | | | | | Phone: | | | | | | | [phone] | | | | | | | Fax: | | | | | | | [phone] | | +--------+--------+ + + + + Reason for Visit + + + | Reason | Comments | + + + | Establish Care | disorientation unspecified | + + + Evaluate & Treat (Urgent) +--------+ + + + + + | Status | Reason | Specialty | Diagnoses / | Referred By | Referred To | | | | | Procedures | Contact | Contact | +--------+ + + + + + | Closed | Specialty | Neurology | Diagnoses | Walker, | Samayoa, | | | Services | | | Bart Bell DO | Jimbo Box MD | | | Required | | Disorientati | [address] | [address] | | | | | on, | [address] | [place] | | | | | unspecified | [address] | [place] | | | | | Procedures | [address] | [address] Phone: | | | | | Specialty | [place] | [phone] | | | | | Services | [address] | Fax: | | | | | Required | Phone: | [phone] | | | | | | [phone] | | | | | | | Fax: | | | | | | | [phone] | | +--------+ + + + + + Encounter Details +--------+---------+ + + + | Date | Type | Department | Care Team | Description | +--------+---------+ + + + | 02/23/ | Office | [facility] | Jimbo Samayoa MD | Type 2 diabetes | | 2018 | Visit | [facility] | [address] [place] | mellitus with | | | | CLINIC [address] | [place], [place] | hyperosmolarity | | | | [address] [place], | [address] | without coma, | | | | [place] [address] | | without long-term | | | | [phone] | | current use of | | | | | | insulin (HCC) | | | | | | (Primary Dx); | | | | | | Rheumatoid arthritis | | | | | | involving right | | | | | | shoulder with | | | | | | positive rheumatoid | | | | | | factor (HCC); | | | | | | Disorientation; | | | | | | Diabetic | | | | | | polyneuropathy | | | | | | associated with type | | | | | | 2 diabetes mellitus | | | | | | (HCC); Dizziness | +--------+---------+ + + + Social History [...] + + + | Blood Pressure | 128/64 | 02/23/2018 8:04 AM | | | | | PST | | + + + + + | Pulse | 103 | 02/23/2018 8:04 AM | | | | | PST | | + + + + + | Temperature | - | - | | + + + + + | Respiratory Rate | 20 | 02/23/2018 8:04 AM | | | | | PST | | + + + + + | Oxygen Saturation | 91% | 02/23/2018 8:04 AM | | | | | PST | | + + + + + | Inhaled Oxygen | - | - | | | Concentration | | | | + + + + + | Weight | 111.1 kg (245 lb) | 02/23/2018 8:04 AM | | | | | PST | | + + + + + | Height | 170.2 cm (5' 7") | 02/23/2018 8:04 AM | | | | | PST | | + + + + + | Body Mass Index | 38.37 | 02/23/2018 8:04 AM | | | | | PST | | + + + + + documented in this encounter Patient Instructions Patient Instructions Jimbo Samayoa MD - 02/23/2018 8:15 AM PSTFormatting of this note mi ght be different from the original. Patient Instructions [facility] Neurology Clinic Dr. Jimbo Samayoa, Neurologist Date:02/23/2018 Name:Kait Min :..1970 Please schedule next follow up appt with Theo in 4 months for recurrent disorientation /confusional state R/o seizures, versus worsening JESUSITA versus demyelinating disease Diabetic Polyneuropathy Hx Migraine , with aura, intractable, non status migrainous Obstructive Sleep ap;nitesh Rheumatoid Arthritis Obesity You have the following tests/procedures ordered: Orders Placed This Encounter Procedures MRI Brain w wo Contrast EEG Treatment Option- massage, Acupuncture, Over the counter heat patches (icy hot, thermacare, salonpas) , over the counter creams (aspercream, bengay cream, emu oi l), Relaxation therapy, Water therapy, Cortisone shots, Toradol Injections Suggest reading newspapers. magazines, perform word find exercises such as cross word puzz le, and scrabble, other puzzle games like ChinaCacheu, Mahjong. Play computer/mobile applications such as ElephantDrive and Listen Edition GAMES Avoid sleep deprivation, alcohol, stimulants, or any type of head trauma Any Questions please call MARTHA Matthew or Dr. Samayoa at [facility] Neurology Clinic Altered Level of Consciousness Level of consciousness (LOC) is a measure of a person s ability to interact with other pe ople and to react to the surroundings. A person with an altered level of consciousness may n ot respond to touch or voices. He or she may look vacant or blank and may not make eye conta ct with others. He or she may be limp and may not move for a long time or show little intere st in moving. He or she may also be confused. There are many causes of altered LOC. They include low blood sugar, infection, medicines, i njuries, or other medical problems. Altered LOC is a medical emergency. The healthcare provider will do tests to help find the cause. These may include blood tests and imaging tests. The person is treated so breathing a nd heart rate are stable. An intravenous (IV) line may be put into a vein in the arm or hand to give medicines. Once the cause of altered LOC is found, the goal is to treat the cause. In almost all cases, the person will be admitted to the hospital for observation. Home care When your loved one is released from the hospital, you will be given guidelines for caring for him or her. In general: Follow the healthcare provider's instructions for giving any prescribed medicines to you r child. Stay with your loved one or have another responsible adult look after him or her. Watch carefully for any return of symptoms or changes in behavior. If the person has diabetes, make sure that any approved medicines are given on time and as prescribed. Follow-up care Follow up with the healthcare provider or our staff. When to seek medical advice Call the healthcare provider right away for any of the following: Symptoms of altered LOC return New symptoms appear Date Last Reviewed: 12/09/201419997723-1527 [employer]. [address] [place] [address], [place] [address]. All righ ts reserved. This information is not intended as a substitute for professional medical care. Always follow your healthcare professional's instructions. What Is Arthritis? Arthritis is a disease that affects the joints. Joints are the parts where bones meet and m ove. It can affect any joint in your body. There are many types of arthritis, including oste oarthritis, rheumatoid arthritis, gout and lupus.If your symptoms are mild, medicines may be enough to ease pain and swelling. For more severe arthritis, you may need surgery to impr ove the condition of the joint or replace part or all of the joint. What causes arthritis? Cartilage is a smooth substance that protects the ends of your bones and provides cushionin g. When you have arthritis, this cartilage breaks down and can no longer protect your bones. This can happen from an autoimmune disease. Or it can happen from wear and tear, infections , or trauma. The bones rub against each other, causing pain and swelling. Over time, small p ieces of rough or splintered bone (bone spurs) may develop. The joint's range of motion can become limited. Symptoms Some of the more common symptoms of arthritis include: Joint pain and stiffness. Pain and stiffness get worse with long periods of rest or usin g a joint too long or too hard. Joints that have lost normal shape and motion Tender, inflamed joints. They may look red and feel warm. Grinding or popping noise with joint movement Feeling tired all the time Reducing symptoms Following a healthy lifestyle by losing weight and exercising can help ease symptoms of ost eoarthritis. Strengthening muscles around the affected joint may will reduce the strain on t he joint. Hot and cold packs may help. Uoyt-ufq-eddhlzl and prescription medicines can be ve ry helpful for arthritis. Talk with your healthcare provider about the best treatments for y our condition. Date Last Reviewed: 08/17/201619997156-3900 [employer]. [address] [place] [address], [place] [address]. All righ ts reserved. This information is not intended as a substitute for professional medical care. Always follow your healthcare professional's instructions. Peripheral Neuropathy Peripheral neuropathy is the result of damage to the peripheral nerves. It usually affects the arms or legs, and causes a change in physical feeling. Sometimes it causes weakness in t he muscles. You may feel tingling, numbness or shooting pains. Symptoms may be more common a t night. Skin may be extra sensitive to light touch or temperature changes. Neuropathy may be caused by a complication of a chronic disease such as diabetes, virus or bacterial infections, or physical injury. A ruptured disk with pressure on the spinal nerve may also lead to the problem. Certain vitamin deficiencies may also lead to it. It may also be caused by exposure to certain drugs or chemicals. Home care Tell the healthcare provider about all medicines you take. This includes prescription an d oykt-bdr-hfvzzva medicines, vitamins, and herbs. Ask if any of the medicines may be causin g your problems. Don't make any changes to prescription medicines without talking to your [facility]. You may be prescribed medicines to help relieve the tingling feeling or for pain. Take a ll medicines as directed. A numb hand or foot may be more prone to injury. To help protect it: Always use oven mitts. Test water with an unaffected hand or foot. Use caution when trimming nails. File sharp areas. Wear shoes that fit well to avoid pressure points, blisters, and ulcers. Inspect your hands and feet carefully (including the soles of your feet and between your toes) at least once a week. If you see red areas, sores, or other problems, tell your healt hcare provider. Follow-up care Follow up with your doctor or as advised by our staff. You may need further testing or eval uation. When to seek medical advice Call your healthcare provider right away if any of the following occur: Redness, swelling, cracking, or ulcer on any numb area, especially the feet New symptoms of numbness or muscle weakness numbness Loss of bowel or bladder control Slurred speech, confusion, or trouble speaking, walking, or seeing Date Last Reviewed: 06/17/201719993939-5259 [employer]. [address] [place], [place] [id number]. All [facility] ts reserved. This information is not intended as a substitute for professional medical care. Always follow your healthcare professional's instructions. Treating Peripheral Neuropathy Peripheral neuropathy is a disease of the nerves. It most often startsin your feet andm ay alsoeventuallyaffect the arms.Itmay cause pain ormay make you unable to sense p ain.Sometimes, weakness occurs as well.Lack of painand weaknessmakesyou more likel y to injure yourself without knowing it. Learn ways to protect your feet. Check your feet daily for wounds you may not have felt. Av oid blanco by testing bath water with your elbow before stepping in. Also,always wear shoes to prevent injury. Regular foot care If you have foot numbness, you may not notice cutting yourself while trimming your nails. T o prevent problems, your healthcare provider may ask you to visit for nail and callus trimmi ng. See your provider for foot care as often as suggested. Check your feet daily Catch problems early by checking your feet every day for changes. Look at the top and botto m of your feet, your heels, and between your toes. It may help to use a mirror. If this is h veronica, ask someone to check for you. Call your healthcare provider if you notice a wound, ulce ration, ingrown nail, or any changes in your feet. This includes increased heat, swelling, n umbness, tingling, pain, and redness. Wear proper footwear Always wear shoes and socks, even indoors. Ask your healthcare provider how to choose the r ight shoe. After buying shoes, bring them to your doctor to be checked for proper fit. Take new shoes off every hour or so to check for red pressure areas on your feet. Each time you p ut on your shoes, use your fingers first to feel inside for foreign objects. Common causes of peripheral neuropathy Some common causes of peripheral neuropathy include: Diabetes or other endocrine disorders Toxins (such as alcohol) Nutritional deficiencies (such as Vitamin B-12) Kidney disease Injury Repetitive stress (such as carpal tunnel syndrome) Autoimmune disease Cancer and tumors Chemotherapy Arthritis Advanced age Heredity Infection Diagnosis and treatment Diagnosis of peripheral neuropathy includes a complete history and physical exam. Lab richar ts including blood work and imaging often help determine the cause. Special nerve tests are often helpful including nerve conduction velocity studies (NCV), and electromyography (EMG). Treatment focuses on treating the underlying disorder and treating symptoms through the use of medicines, injections, TENS (transcutaneous electrical nerve stimulation), acupuncture, massage, and other methods. Date Last Reviewed: 04/19/201719990109-9826 [employer]. [address] [place] [address], [place] [address]. All [facility] ts reserved. This information is not intended as a substitute for professional medical care. Always follow your healthcare professional's instructions. What is Peripheral Neuropathy? Peripheral neuropathy symptoms often start in the toes and move up the foot. Peripheral neuropathy is a disease of the nerves. It most often startsin your feet and ma y also eventually affect the arms. It can affect sensory, motor, or both functions. It may c ause pain or make you unable to sense pain. Sometimes, weakness occurs as well. Lack of pain and weakness makes you more likely to injure yourself without knowing it. But you can learn ways to protect your feet from injury. When nerves are diseased Nerves in your feet carry signals to your brain. Your brain reads those signals and interpr ets them as sensations. When nerves in your feet are diseased, signals may be disrupted or c hanged.The result may be a lack of feeling (numbness)in your feet or other symptoms, suc h as tingling or pain. Symptoms mask pain Symptoms of peripheral neuropathy usually start in your toes. The symptoms slowly spread up your feet and legs as more nerve is affected. These symptoms may decrease sensation in your feet or mask pain. Without pain, you may not notice a cut or even a bone fracture. Cuts may become infected. Fractures may heal poorly and lead to foot deformity. Common causes of peripheral neuropathy Some common causes of peripheral neuropathy include: Diabetes or other endocrine disorders Toxins (such as alcohol) Nutritional deficiencies (such as Vitamin B-12) Kidney disease Injury Repetitive stress (such as carpal tunnel syndrome) Autoimmune disease Cancer and tumors Chemotherapy cancer treatment Arthritis Advanced age Neurological disorders Infection Diagnosis and treatment Diagnosis of peripheral neuropathy includes a complete history and physical exam. Tests i nclude blood tests and imaging often help find the cause. Special nerve tests are often help ful including nerve conduction velocity studies (NCV), and electromyography (EMG). NCV helps find evidence of poor conduction of nerve signals. EMG helps tell whether symptoms are caus ed by muscle or nerve disorders. Treatment focuses on treating the underlying disorder and treating the symptoms usingmedi cines, injections, TENS (transcutaneous electrical nerve stimulation), acupuncture, massage, and others. Date Last Reviewed: 03/19/201719996636-0782 [employer]. [address] [place] [address]. All righ ts reserved. This information is not intended as a substitute for professional medical care. Always follow your healthcare professional's instructions. documented in this encounter Plan of Treatment +--------+---------+ + + + | Date | Type | Specialty | Care Team | Description | +--------+---------+ + + + | 06/19/ | Office | Neurology | Jimbo Samayoa MD | | | 2019 | Visit | | [address] | | | | | | [place] | | | | | | [address] | | | | | | | | +--------+---------+ + + + | 07/26/ | Office | Pulmonology | Navdeep Grande, | | | 2019 | Visit | | [address] | | | | | | [place] | | | | | | [id number] | | | | | | | | +--------+---------+ + + + documented as of this encounter Procedures + +--------+ + + + | Procedure Name | Priori | Date/Time | Associated Diagnosis | Comments | | | ty | | | | + +--------+ + + + | MRI BRAIN W WO | Routin | 03/08/2018 | | | | CONTRAST | e | | | | + +--------+ + + + documented in this encounter Results EEG (03/15/2018 12:44 PM PST) + + + | Narrative | Performed At | + + + | Ernestine Jimenez MD 03/15/2018 12:45 Name:Kait Patel | | | Pako :1970 DATE OF SERVICE: 03/15/2018 | | | STUDY: ELECTROENCEPHALOGRAM INTRODUCTION: This is a | | | digital EEG recording with a record length of 20 minutes. The | | | patient is a 47 y.o. year-old female with episodes of | | | disorientation. BACKGROUND RHYTHM: The patient has a well | | | defined background pattern of 8-9 Hz. This activity is more | | | prominent posteriorly, symmetrical, and synchronous. It attenuates | | | with eye opening and returns with eye closing. Drowsiness is | | | appreciated by the attenuation and slowing of the patient's | | | background activities. ABNORMAL POTENTIALS: No focal slow waves | | | or epileptiform discharges are seen. HYPERVENTILATION/PHOTIC | | | STIMULATION: Hyperventilation was not completed as the patient | | | complained of dizziness.. Photic stimulation was discontinued | | | because of eye pain. IMPRESSION: Normal awake and drowsy EEG. | | | Thank you for the opportunity to participate in the care of this | | | patient. Erenstine Jimenez MD03/15/201812:44 Electronically | | | signed | | + + + MRI Brain w wo Contrast (03/08/2018) + + + | Narrative | Performed At | + + + | | | + + + documented in this encounter Visit Diagnoses + + | Diagnosis | + + | Type 2 diabetes mellitus with hyperosmolarity without coma, without long-term current | | use of insulin (HCC) - Primary | + + | Rheumatoid arthritis involving right shoulder with positive rheumatoid factor (HCC) | + + | Disorientation Other general symptoms | + + | Diabetic polyneuropathy associated with type 2 diabetes mellitus (HCC) | + + | Dizziness Dizziness and giddiness | + + documented in this encounter
--- OUTSIDE RECORDS SUMMARY | ~2019-04-18 | XMS | Encounter Summary ---
Demographics + + + | Address | [address] [place] | | | [place] [address] | + + + | Home Phone | | + + + | Preferred Language | Unknown | + + + | Marital Status | Single | + + + | Hoahaoism Affiliation | CHR | + + + [...] | | | | | [place] [address] | | + + + + + Care Team Providers + +------+ + | Care Gun Fitter Name | Role | Phone | + +------+ + PCP | Unavailable | + +------+ + Encounter Details +--------+ + + + + | Date | Type | Department | Care Team | Description | +--------+ + + + + | 10/27/ | Procedure - | | Record, Operation | Operative Report | | 2006 | | | | | | | Transcribed | | | | +--------+ + + [...] | + +--------+ + + + | OPERATION RECORD | | 10/27/2005 | | Results for this | | | | | | procedure are in the | | | | | | results section. | + +--------+ + + + documented in this encounter Results OPERATION RECORD (10/27/2005) + + | Transcriptions | + + | Interface, Employee'S Representative In - 11/19/2005 2:03 AM PDT | | [id number] | | [id number] LUZ CROWLEY [id number] | | | | Date: 10/27/2005 | | | | Attending Surgeon: Anibal Starr M.D. | | | | Work Ticket Distributor(s): Valerie Stone | | Ayo Calabrese MD | | | | Preoperative Diagnosis(es): | | Right fibrothorax, empyema. | | | | Postoperative Diagnosis(es): | | Right fibrothorax, empyema. | | | | Procedures Performed: | | Right thoracoscopy, right thoracotomy, decortication of right upper, | | middle, and lower lobes, and fiberoptic bronchoscopy. | | | | Anesthesia: | | General endotracheal anesthesia with single-lumen ET tube for the | | bronchoscopy, double-lumen ET tube for the thoracoscopy and thoracotomy. | | | | Anesthesiologist: | | Marcos Mcqueen M.D. | | | | Complications: | | | | Specimens: | | | | Indications: | | Kait Min is a 35-year-old female with a history of diabetes mellitus | | and rheumatoid arthritis who presented after placement of a chest tube at | | an outside hospital for what appeared to be an empyema. She has had a | | persistent air leak. On CT scan, she has a fibrothorax with collapsed | | middle and lower lobes. | | | | Procedure: | | Mrs. Min was brought to the operating suite. General endotracheal | | anesthesia was induced. A single-lumen ET tube was placed. A left radial | | A-line was placed, and a right IJ central line was placed. Fiberoptic | | bronchoscopy was performed through the single-lumen ET tube. The area was | | examined out to the subsegmental level. No lesions were identified. The | | anatomy was normal. | | | | A single-lumen ET tube was changed to a double-lumen ET tube. The patient | | was turned into the left lateral decubitus position. The right chest was | | prepped and draped. A fourth interspace working port was placed. After | | entering the intercostal space, a dense fibrothorax was identified. | | Thoracoscopy was abandoned, and a posterolateral thoracotomy was | | constructed. The latissimus was divided. The serratus was spared. The | | fifth interspace was entered on top of the sixth rib. Upon entering the | | chest, there was a dense, thick peel. An extrapleural dissection was done | | in order to place the retractors. Retractors were placed. A piece of this | | extrapleural dissection was sent to Pathology for frozen section and | | revealed no evidence of malignancy. | | | | The right upper, right middle, and right lower lobes were then sequentially | | freed from the chest wall. The extrapleural dissection was brought into a | | pleural dissection after placement of the chest retractors. The right | | upper lobe was identified and swept free of its fibrous peel. This fibrous | | peel was then resected and sent to Pathology. The right lower lobe | | required an extensive and tedious dissection to remove its fibrous peel, | | but we were able to completely decorticate the right lower lobe. A portion | | of the right lower lobe in the lateral sulcus had evidence of lung abscess | | which had ruptured. This was debrided, but not resected. The right middle | | lobe had a dense peel attached to it. This peel could not be removed from | | the middle lobe. The peel was scraped with Kashiwagis, and then pie | | crust-type incisions made with the scalpel such that the middle lobe did | | expand up to approximate the chest wall. The middle lobe did appear to | | have a pneumonic process going on in it. | | | | Three chest tubes were placed through separate stab wounds, anterior | | apical, posterior basal and apical, and a middle one to the right angle to | | the diaphragm. At the completion of the procedure, the lung expanded to | | completely fill the chest. The chest was irrigated. Tisseel was sprayed | | on bare areas along the chest wall. Hemostasis was confirmed. The ribs | | were reapproximated with interrupted pdvjpt-or-ummrx #2 Vicryls. The | | serratus and latissimus layers were reapproximated with a running #1 | | Vicryl. The subcutaneous layer was reapproximated with a running 2-0 | | Vicryl. The skin was reapproximated with a running 4-0 Vicryl subcuticular | | stitch. Chest tubes were placed for suction. The patient was taken from | | the OR to the intensive care unit intubated. Please note that during the | | procedure, she did not tolerate single-lung ventilation well, and the | | majority of the procedure needed to be done with double-lung ventilation. | | | | Findings: | | Kait Min had a fiberoptic bronchoscopy followed by a right thoracoscopy | | converted to right thoracotomy. A dense fibrinopurulent, likely empyema | | was | | found, and her right upper, middle, and lower lobes were decorticated. | | | | | | | | | | Anibal Starr M.D. | | | | PS / HS | | [id number] / [id number] / [id number] / [id number] | | | | | | | | | | | | Electronically signed by Anibal Starr 11-18-2005 08:31:32 AM | + + documented in this encounter Visit Diagnoses Not on filedocumented in this encounter"
--- OUTSIDE RECORDS SUMMARY | ~2019-04-18 | XMS | Encounter Summary ---
Demographics + + + | Address | [address] | | | [place] [address] | + + + | Home Phone [...] | + + + + + | cSot Johnson | ECON | [address] | | | | | [place] [address] | | + + + + + Care Team Providers + +------+ + | Care Anatomic Pathology Assistant Name | Role | Phone | + +------+ + PCP | Unavailable | + +------+ + Encounter Details +--------+ + + + + | Date | Type | Department | Care Team | Description | +--------+ + + + + | 10/22/ | Respiratory | | Other, Faculty | | | 2006 | Therapy | | [phone] | | +--------+ + + + + [...] [facility] | [address] | [place], [place] | | | DIAGNOSTICS - | [place] | [address] | | | PULMONARY FUNCTION | | | | + + + + + documented in this encounter Visit Diagnoses Not on filedocumented in this encounter"
--- OUTSIDE RECORDS SUMMARY | ~2019-04-18 | XMS | Clinical Summary ---
Demographics + + + | Address | [address] | | | [place] [address] | + + + | Home Phone | | + + + | Preferred Language | Unknown | + + + | Marital Status | Single | + + + | Worship Affiliation | Unknown | + + + | Race | Unknown | + + + | Ethnic Group | Unknown | + + + Author + + + | Author | [facility] (Historical as of | | | 12-03-18) | + + + | Organization | [facility] (Historical as of | | | 12-03-18) | + + + | Address | Unknown | + + + | Phone | Unavailable | + + + Support + + +---------+ + | Name | Relationship | Address | Phone | + + +---------+ + | CharleyIsabella | ECON | Unknown | | + + +---------+ + | Robson Min | ECON | Unknown | | + + +---------+ + | Stephan Johnson | ECON | Unknown | | + + +---------+ + | Cristi Dave | ECON | Unknown | | + + +---------+ + Care Team Providers + +------+ + | Care Asset Protection Detective Name | Role | Phone | + +------+ + | Ora Slater PA-C | PP | | + +------+ + [...] | | | | Activ | | [id number] | mouth every 4 (four) | | [...] | | | | Activ | | (LINZESS) 145 MCG | mouth every morning | [...] | + + + | Methamphetamine abuse (HCC) | 09/06/2014 | + + + | [...] well.Last Cath: naLast Echo, | | 09/19/2015 ([facility]): TDS, mild concentric LVH, LVEF 65-70%, | [...] + + | Hyponatremia | 03/21/20 | | | | 13 [...] + + | Diabetic Eye Exam | 02/28/197 | | | | | 2 | [...] + | Vaccine: | Completed | 01/10/2015, 03/22/2013, | | | Pneumococcal 19-64 | | 04/04/2009 | | | (PPSV23 only) Medium | [...] + +--------+ +------+-------+ + | MEDICAID | JOSEER | [id number] | | | [address] | | | [place] | | | | [place] | | | [place] | | | | [phone] | | | MEDICINAL CHEMIST | | | | | + +--------+ [...] Self | [birth year] | Home: | [address] | | | al/Fam | | 1970 | [phone] [place] | | | kristy | | | [phone] | [phone] | + +--------+ +--------+ + +
--- OUTSIDE RECORDS SUMMARY | ~2019-04-18 | XMS | Encounter Summary ---
Demographics + + + | Address | [address] | | | [place] [address] | + + + | Home Phone [...] + + + | Author | [facility] | | | and [place] | + + + | Organization | [facility] | | | [...] | | | | | [place] [address] | | + + + + + | Robson Min | ECON | Unknown | | + + + + + | Isabella Whitehead | ECON | Unknown | | + + + + + Care Team Providers + +------+ + | Care Tests Superintendent Name | Role | Phone | + +------+ + | Ora Slater | PCP | | + +------+ + Reason for Referral Service/Procedure (Routine) + +--------+ + + + + | Status | Reason | Specialty | Diagnoses / | Referred By | Referred To | | | | | Procedures | Contact | Contact | + +--------+ + + + + | Authorized | | Diagnostic | Diagnoses | Lynne | [facility] | | | | Radiology | Dizziness | DO Laine | [facility] | | | | | Procedures | [address] | | | | | ECHO | [address] | [address] | | | | | Complete | [address] | [place] | | | | | | [place], [place] | [address] | | | | | | [address] | Phone: | | | | | | Phone: | [phone] | | | | | | [phone] | Fax: | | | | | | Fax: | [phone] | | | | | | [phone] | | + +--------+ + + + + Reason for Visit + + + | Reason | Comments | + + + | New Patient | NEW PATIENT | + + + Evaluate & Treat (Routine) + +--------+ + + + + | Status | Reason | Specialty | Diagnoses / | Referred By | Referred To | | | | | Procedures | Contact | Contact | + +--------+ + + + + | Authorized | | Cardiology | Diagnoses | Bryon, | Lynne, | | | | | | TIMOTHY Carcamo | DO Laine | | | | | Atrioventric | [address] | [address] | | | | | tasha pollack, | Rivka [address]anna | [address] | | | | | first degree | [place], | [place], [place] | | | | | Procedures | [place] | [address] Phone: | | | | | consult | [address] | [phone] | | | | | | Phone: | Fax: | | | | | | [phone] | [phone] | | | | | | Fax: | | | | | | | [phone] | | + +--------+ + + + + Encounter Details +--------+---------+ + + + | Date | Type | Department | Care Team | Description | +--------+---------+ + + + | 01/03/ | Office | [facility] | Laine Batista DO | Atrioventricular | | 2019 | Visit | CARDIOLOGY [place] | [address] | block (Primary Dx); | | | | [address] | [address] [address] [place], [place] | Dizziness; | | | | [place], [place] | [address] | Palpitations; | | | | [address] | | Hypertension, | | | | [phone] | | unspecified type; | | | | | | COPD, moderate | | | | | | (HCC); Rheumatoid | | | | | | arthritis, involving | | | | | | unspecified site, | | | | | | unspecified | | | | | | rheumatoid factor | | | | | | presence ([facility]); | | | | | | Methamphetamine | | | | | | abuse ([facility]); Tobacco | | | | | | use disorder | +--------+---------+ + + + Social History [...] + + + | Blood Pressure | 162/84 | 01/03/2019 1:12 PM | | | | | PDT | | + + + + + | Pulse | 85 | 01/03/2019 1:12 PM | | | | | PDT | | + + + + + | Temperature | - | - | | + + + + + | Respiratory Rate | - | - | | + + + + + | Oxygen Saturation | 97% | 01/03/2019 1:12 PM | | | | | PDT | | + + + + + | Inhaled Oxygen | - | - | | | Concentration | | | | + + + + + | Weight | 102.1 kg (225 lb) | 01/03/2019 1:12 PM | | | | | PDT | | + + + + + | Height | 165.1 cm (5' 5") | 01/03/2019 1:12 PM | | | | | PDT | | + + + + + | Body Mass Index | 37.44 | 01/03/2019 1:12 PM | | | | | PDT | | + + + + + documented in this encounter Progress Notes Laine Batista, - 01/03/2019 1:00 PM PDT [facility] Cardiology Cardiology Consult Note Reason for Consultation: first degree AVB Requesting Physician: Ora Slater History Obtained From: patient HISTORY OF PRESENT ILLNESS: Cardiac problem list Hypertension Noncardiac problem list Severe rheumatoid arthritis History of pyoderma gangrenosum Type 2 diabetes COPD Current tobacco habituation Prior methamphetamine use The patient is a 48-year-old female who presents to the cardiology office due to a history of a first-degree AV block. The patient has a complex past medical history including severe rheumatoid arthritis, fibromyalgia, type 2 diabetes, COPD, prior heavy methamphetamine abus e, she quit using methamphetamine about 4 years ago. She was previously followed by Dr. Celeste calderón for history of high blood pressure and an elevated troponin while she was ill with pneumo erin. Recently, the patient has been feeling at her baseline. She had several hospitalizati ons earlier this year for recurrent pneumonia that led to sepsis. Lately, she has been feel ing better. She reports she has diffuse pain in her body and muscles and joints. She is li mited in her activity due to this pain. She is able to do the majority of her ADLs, though she does sometimes get wobbly whenever she is taking a shower. She has a home health aide to help with certain house chores. She denies any recent episodes of chest pain. She has c hronic shortness of breath which is unchanged recently. She takes torsemide daily for lower extremity swelling and believes that she has been on this for a few years. She also admits to intermittent palpitations particularly when she is exercising and when she gets anxiety attacks. She also reports episodes of feeling dizzy and faint almost every day. She denie s any overt syncopal episodes. Review of Systems Constitutional: Positive for fatigue. HENT: Negative for nosebleeds. Eyes: Negative for visual disturbance. Respiratory: Positive for cough and shortness of breath. Cardiovascular: see HPI Gastrointestinal: Negative for nausea, vomiting, abdominal pain and blood in stool. Genitourinary: Negative for hematuria or dysuria. Musculoskeletal: Positive for myalgias, back pain and arthralgias. Skin: Negative for color change. Neurological: Positive for dizziness, negative for syncope and numbness. Hematological: Does not bruise/bleed easily. Psychiatric/Behavioral: The patient is nervous/anxious. PAST MEDICAL & SURGICAL HISTORY Past Medical History: Diagnosis Date Abnormal chest CT Most likely postoperative decortication changes Acid reflux disease Angina pectoris ([facility]) Arrhythmia Bipolar 1 disorder ([facility]) CHRONIC TENSION HEADACHE Classical migraine without mention of intractable migraine Diabetes mellitus, type 2 ([facility]) Empyema lung ([facility]) 2006 right GI bleeding Hypercholesterolemia Hypertension Hypothyroidism IBS (irritable bowel syndrome) Knee pain Lymphedema Myocardial infarction ([facility]) Nausea and vomiting Nocturia Obesity Panic anxiety syndrome Pneumonia Pyoderma gangreosum-LE RA (rheumatoid arthritis) ([facility]) Followed by Dr. Becerra Rheumologist in [place] Reflux esophagitis Restless leg syndrome Urinary hesitancy Vitamin D deficiency Wrist pain Past Surgical History: Procedure Laterality Date CATARACT REMOVAL Bilateral 01/2018 colonoscopy COLONOSCOPY ENDOSCOPY PMTX surgery 2006 UPPER GASTROINTESTINAL ENDOSCOPY MEDICATIONS Home Medications Outpatient Encounter Medications as of 01/03/2019 Medication Sig Dispense Refill albuterol (PROAIR HFA) 90 mcg/puff inhaler Inhale 2 puffs into the lungs every 4 hours as needed for Wheezing or Shortness of Breath. 1 Inhaler 11 aspirin 81 mg EC tablet Take 81 mg by mouth Daily. atorvaSTATin (LIPITOR) 20 mg tablet azaTHIOprine (IMURAN) 50 mg tablet Take 1 tablet by mouth every morning. [DISCONTINUED] azaTHIOprine (IMURAN) 50 mg tablet Take 100 mg by mouth every evening. BANOPHEN 25 MG capsule buprenorphine (BUTRANS) 20 mcg/hr patch Place 1 patch onto the skin Once a week. busPIRone (BUSPAR) 10 MG tablet Take 10 mg by mouth every morning. [DISCONTINUED] busPIRone (BUSPAR) 10 MG tablet Take 20 mg by mouth every evening. cholecalciferol (VITAMIN D-3) 5000 units TABS Take 5,000 Units by mouth Daily. cloNIDine (CATAPRES) 0.3 mg/[address] 1 patch onto the skin Once a week. Continuous Blood Gluc Sensor (FREESTYLE HUAN 14 DAY SENSOR) [facility] [DISCONTINUED] ergocalciferol (VITAMIN D-2) 50,000 units capsule Take 50,000 Units by m outh Once a week. fluticasone-salmeterol (ADVAIR HFA) 115-21 MCG/ACT inhaler Inhale 2 puffs into the lung s 2 times daily. Rinse mouth and throat after use. 1 Inhaler 3 LANTUS SOLOSTAR 100 UNIT/ML injection (pen) Inject 20 Units under the skin nightly. levothyroxine (SYNTHROID) 100 mcg tablet Take 100 mcg by mouth every morning (before br eakfast). Take with 300mcg for total of 400mcg [DISCONTINUED] levothyroxine (SYNTHROID) 88 mcg tablet [DISCONTINUED] levothyroxine (SYNTHROID, LEVOTHROID) 300 MCG tablet Take 300 mcg by karen th every morning (before breakfast). magnesium oxide (MAG-OX) 400 mg tablet Take 1 tablet by mouth Daily. metFORMIN (GLUCOPHAGE) 500 mg tablet Take 1,000 mg by mouth 2 times daily (with breakfa st & dinner). metoclopramide (REGLAN) 10 mg tablet [DISCONTINUED] nicotine (NICODERM) 7 mg/24 hr omeprazole (PRILOSEC) 20 mg capsule Take 1 capsule by mouth every morning (before break fast). 90 capsule 3 pregabalin (LYRICA) 150 MG capsule Take 150 mg by mouth 2 times daily. Respiratory Therapy Supplies [facility] Portable oxygen concentrator to provide O2 at 1 l/m c ontinuous via nasal cannula. Duration: Lifetime Dx: COPD J44.9 1 each 0 roflumilast (DALIRESP) 500 mcg tablet Take 1 tablet by mouth Daily. 30 tablet 5 sulfaSALAzine (AZULFIDINE) 500 MG EC tablet Take 1,000 mg by mouth 2 times daily. tiZANidine (ZANAFLEX) 4 mg tablet Take 4 mg by mouth nightly. torsemide (DEMADEX) 20 mg tablet Take 20 mg by mouth Daily. With 5mg for total of 25mg torsemide (DEMADEX) 5 mg tablet Take 5 mg by mouth Daily. Take with 20mg for total of 2 5mg traZODone (DESYREL) 100 mg tablet Take 300 mg by mouth nightly. Varenicline Tartrate (CHANTIX PO) Take 5 mg by mouth 2 times daily. verapamil (CALAN SR) 240 mg SR tablet Take 2 tablets by mouth nightly. vortioxetine (TRINTELLIX) 10 mg tablet Take 10 mg by mouth every morning. [DISCONTINUED] ziprasidone (GEODON) 60 MG capsule Take 60 mg by mouth Daily. With 80mg to equal to 140mg. ziprasidone (GEODON) 80 MG capsule Take 80 mg by mouth nightly. No facility-administered encounter medications on file as of 01/03/2019. Allergies Allergies Allergen Reactions Adhesive & Tape Other (See Comments) Other reaction(s): Other (See Comments) Skin sensitivity Skin sensitivity Azithromycin Hives Lamotrigine FAMILY HISTORY Family History Problem Relation Age of Onset Diabetes Father Hypertension Father Allergies Father Obesity Father Other (see comment) Father hypothyroid Ulcer disease Father Emphysema Mother Diabetes Mother Other (see comment) Mother epilepsy Hypertension Mother Allergies Mother Obesity Mother Ulcer disease Mother Tuberculosis Brother Anemia Brother Allergies Brother Other (see comment) Paternal Grandfather rheumatic fever Colon cancer Other family hx Prostate cancer Other family hx Arthritis Other family hx of Hypertension Paternal Grandmother Stroke Paternal Grandmother Arthritis Paternal Grandmother SOCIAL HISTORY Social History Socioeconomic History Marital status: Single Spouse name: Not on file Number of children: 1 Years of education: HS grad Highest education level: Not on file Social Needs Financial resource strain: Not on file Food insecurity - worry: Not on file Food insecurity - inability: Not on file Transportation needs - medical: Not on file Transportation needs - non-medical: Not on file Occupational History Occupation: disabled Tobacco Use Smoking status: Current Every Day Smoker Packs/day: 1.00 Years: 20.00 Pack years: 20.00 Types: Cigarettes Start date: 07/25/1983 Smokeless tobacco: Never Used Tobacco comment: 05/26/16: Currently using Chantix Substance and Sexual Activity Alcohol use: Yes Alcohol/week: 0.0 oz Comment: Rare Drug use: No Comment: used to use drugs meth 2014 Sexual activity: Yes Partners: Male Other Topics Concern Not on file Social History Narrative Lives in a [address] with her boyfriend next to her mother. PHYSICAL EXAM Vital Signs: BP 162/84 | Pulse 85 | Ht 1.651 m (5' 5") | Wt 102.1 kg (225 lb) | SpO2 97 % | BMI 37.44 kg/m Physical Exam GENERAL: ill appearing female, appears older than stated age HEENT: Normocephalic, atraumatic. EYES: PERRL, sclerae anicteric, no xanthelsasmas NECK: No JVD, lymphadenopathy, thyromegaly, bruits. Carotid pulses are 2+ bilaterally LUNGS: Clear bilaterally, with no rales, rhonchi or wheezing noted, respirations unlabored HEART: Nondisplaced PMI, regular rate and rhythm, S1, S2 normal. No murmurs, rubs or gall ops noted. ABDOMEN: Soft, nontender, no organomegaly, masses or bruits. EXTREMITIES: No edema. Radial pulses 2+ bilaterally. DP and PT pulses are 2+ bilaterally. Rheumatoid deformity of hands and feet. SKIN: Warm and dry, capillary refill is normal, no lesions. NEUROLOGIC: Awake, alert and oriented x 3. No focal motor deficits. PSYCHIATRIC: Appropriate, affect appears normal DATA Lab Results Component Value Date WBC 4.5 08/18/2018 HGB 10.7 (L) 08/18/2018 HCT 32.9 (L) 08/18/2018 PLT 218 08/18/2018 Lab Results Component Value Date INR 1.0 08/15/2018 Lab Results Component Value Date NA 134 08/18/2018 K 3.8 08/18/2018 CL 100 08/18/2018 CO2 28 08/18/2018 BUN 15 08/18/2018 CREA 0.69 08/18/2018 MG 1.6 (L) 08/19/2018 AST 12 08/17/2018 ALT 14 08/17/2018 TSH 0.58 08/15/2018 Lab Results Component Value Date TSH 0.58 08/15/2018 EK/17/19 ordered and reviewed by myself normal sinus rhythm 86 BPM, LAD, anterior septa l infarct age undetermined. Last Echo: 09/19/15 CONCLUSIONS 1. Overall left ventricular systolic function is normal with, an EF between 65 - 70 %. Last stress test: 03/2013 IMPRESSION: 1. Negative for ischemia or infarct. 2. Left ventricular ejection fraction is calculated at 60%. Last cath: Carotid US: AAA screening: Lower extremity US: OTHERS: ASSESSMENT & PLAN 1. Palpitations 2. Hypertension 3. Severe rheumatoid arthritis 4. History of pyoderma gangrenosum 5. Type 2 diabetes 6. COPD 7. Current tobacco habituation 8. Prior methamphetamine use - The patient is a 48-year-old female with the above past medical history, who presents to establish care with Cardiology. She was previously a patient of Dr. Oreilly. Recently, she gooden s been doing about at her baseline. She does admit to some recent episodes of palpitations and episodes of lightheadedness. We discussed doing an ambulatory monitor to ensure she bermudez s not have any arrhythmias that could be leading to her symptoms. We will plan to, 1. Obtain a 2-week event monitor and a complete echocardiogram. 2. Obtain a 2-week event monitor. 3. Obtain a complete echocardiogram. 4. Continue current doses of aspirin, atorvastatin, clonidine, torsemide, and verapamil. 5. Follow up in 3 months. Thank you for allowing me to participate in the care of this patient. Primary Care Physician: TIMOTHY Singleton DO 01/05/2019 documented in this enco unter Plan of Treatment +--------+---------+ + + + | Date | Type | Specialty | Care Team | Description | +--------+---------+ + + + | 06/19/ | Office | Neurology | Jimbo Samayoa MD | | | 2019 | Visit | | [address] | | | | | | [place] | | | | | | [address] | | | | | | | | +--------+---------+ + + + | 07/26/ | Office | Pulmonology | Navdeep [place], | | | 2019 | Visit | | MD [address] | | | | | | [place] | | | | | | [address] | | | | | | | | +--------+---------+ + + + + + +--------+ + + | Name | Type | Priori | Associated Diagnoses | Order Schedule | | | | ty | | | + + +--------+ + + | Event monitor - 2 | ECG | Routin | Dizziness | Expected: | | week | | e | | 01/10/2019, Expires: | | | | | | 01/04/2020 | + + +--------+ + + | ECHO Complete | Echocardiog | Routin | Dizziness | Expected: | | | lucy | e | | 01/03/2019, Expires: | | | | | | 01/04/2020 | + + +--------+ + + documented as of this encounter Procedures + +--------+ + + + | Procedure Name | Priori | Date/Time | Associated Diagnosis | Comments | | | ty | | | | + +--------+ + + + | ECG 12 LEAD | Routin | 01/03/2019 | Atrioventricular | Results for this | | | e | 1:16 PM | block | procedure are in the | | | | PDT | | results section. | + +--------+ + + + documented in this encounter Results ECG 12 lead (01/03/2019 1:16 PM PDT) + + + + + + | Component | Value | Ref Range | Performed | Pathologist | | | | | At | Signature | + + + + + + | VENTRICULAR | 86 | BPM | [facility] | | | RATE EKG | | | | | + + + + + + | ATRIAL RATE | 86 | BPM | [facility] | | + + + + + + | P-R | 206 | ms | [facility] | | | INTERVAL | | | | | + + + + + + | QRS | 94 | ms | [facility] | | | DURATION | | | | | + + + + + + | Q-T | 394 | ms | [facility] | | | INTERVAL | | | | | + + + + + + | Q-T | 471 | ms | [facility] | | | INTERVAL | | | | | | (CORRECTED) | | | | | + + + + + + | P WAVE AXIS | 31 | degrees | [facility] | | + + + + + + | QRS AXIS | -39 | degrees | [facility] | | + + + + + + | T AXIS | 28 | degrees | [facility] | | + + + + + + | INTERPRETAT | Please refer to | | [facility] | | | ION TEXT | Providers office visit | | | | | | note for Providers | | | | | | Interpretation.Confirmed | | | | | | by [facility] [place] Read Only, | | | | | | [facility] ([id number]), | | | | | | newspaper photo editor Anupam Sanz | | | | | | ([id number]) on 01/03/2019 | | | | | | 1:33:28 PM | | | | + + [...] + | Diagnosis | + + | Atrioventricular block - Primary Atrioventricular block, unspecified | + + | Dizziness Dizziness and giddiness | + + | Palpitations | + + | Hypertension, unspecified type | + + | COPD, moderate (HCC) Chronic airway obstruction, not elsewhere classified | + + | Rheumatoid arthritis, involving unspecified site, unspecified rheumatoid factor | | presence (HCC) | + + | Methamphetamine abuse (HCC) Nondependent amphetamine or related acting | | sympathomimetic abuse, unspecified | + + | Tobacco use disorder | + + documented in this encounter
--- OUTSIDE RECORDS SUMMARY | ~2019-04-18 | XMS | Encounter Summary ---
Demographics + + + | Address | [address] | | | [place] [address] | + + + | Home Phone | | + + + | Preferred Language | Unknown | + + + | Marital Status | Single | + + + | Mandaeism Affiliation | Unknown | + + + | Race | Unknown | + + + | Ethnic Group | Unknown | + + + Author + + + | Author | [facility] | | | and [place] | + + + | Organization | [facility] | | [...] | | | | | [place] [address] | | + + + + + | Robson Min | ECON | Unknown | | + + + + + | Isabella Whitehead | ECON | Unknown | | + + + + + Care Team Providers + +------+ + | Care Senior Qc Technician Name | Role | Phone | + +------+ + | Ora Slater | PCP | | + +------+ + Encounter Details +--------+ + + + + | Date | Type | Department | Care Team | Description | +--------+ + + + + | 08/19/ | Imaging | [facility] | Provider, | | | 2019 | Exam | [facility] | MD [address] | | | | | IMAGING | [address] | | | | | [phone] | [place] [address] | | +--------+ + + + + [...] [place] | | | | | | [address] | | | | | | | | +--------+---------+ + + + | 07/26/ | Office | Pulmonology | Navdeep Grande, | | | 2019 | Visit | | [address] | | | | | | [place] | | | | | | [address] | | | | | | | | +--------+---------+ + + + documented as of this encounter Procedures + +--------+ + + + | Procedure Name | Priori | Date/Time | Associated Diagnosis | Comments | | | ty | | | | + +--------+ + + + | XR CHEST AP PORTABLE | Routin | 08/15/2018 | | Results for this | | | e | 8:55 AM | | procedure are in the | | | | PDT | | results section. | + +--------+ + + + documented in this encounter Results XR Chest AP Portable (08/15/2018 8:55 AM PDT) + + | Specimen | [...]
--- OUTSIDE RECORDS SUMMARY | ~2019-04-18 | XMS | Encounter Summary ---
Demographics + + + | Address | [address] | | | [place] [address] | + + + | Home Phone | | + + + | Preferred Language | Unknown | + + + | Marital Status | Single | + + + | Islam Affiliation | Unknown | + + + | Race | Unknown | + + + | Ethnic Group | Unknown | + + + Author + + + | Author | [facility] | | | and [place] | + + + | Organization | [facility] | | | and [...] | | | | | [place] [address] | | + + + + + | Robson Min | ECON | Unknown | | + + + + + | Isabella Whitehead | ECON | Unknown | | + + + + + Care Team Providers + +------+ + | Care Bleach Chlorinator Name | Role | Phone | + [...] | Sleep | Diagnoses | [facility] | [facility] | | | Services | Medicine | Sleep | MD Navdeep | Center [address] | | | Required | | apnea, | [address] | [place] | | | | | unspecified | [address] | [place], | | | | | type | [place], | [place] [address] | | | | | Alveolar | [place] [address] | Phone: | | | | | hypoventilat | Phone: | [phone] | | | | | ion | [phone] | Fax: | | | | | Procedures | Fax: | [phone] | | | | | [place] POLYSOM | [phone] | | | | | | 6/>YRS SLEEP | | | | | | | W/CPAP 4/> | | | | | | | ADDL WHITNEY | | | | | | | ATTND S/N+ | | | | | | | TCO2 (DOS: | | | | | | | 12/20/17 @ | | | | | | | 7pm) | | | +--------+ + + + + + Reason for Visit +---------+ + | Reason | Comments | +---------+ + | Results | nocturnal oximetry | +---------+ + Encounter Details +--------+ + + + + | Date | Type | Department | Care Team | Description | +--------+ + + + + | 11/16/ | Telephone | [facility] | Navdeep Grande, | Results (nocturnal | | 2018 | | PULMONARY [address] | MD [address] | oximetry) | | | | [place] [address], | [place] | | | | | [place] [address] | [address] | | | | | [phone] | | | +--------+ + + + [...] [place] | | | | | | [id number] | | | | | | | | +--------+---------+ + + + | 07/26/ | Office | Pulmonology | Navdeep Grande, | | | 2020 | Visit | | MD [address] | | | | | | [place] | | | | | | [address] | | | | | | | | +--------+---------+ + + + + + +--------+ + + | Name | Type | Priori | Associated Diagnoses | Order Schedule | | | | ty | | | + + +--------+ + + | * [facility] - | Outpatient | Routin | Sleep apnea, | Ordered: 11/16/2017 | | AMB Referral | Referral | e | unspecified type | | | | | | Alveolar | | | | | | hypoventilation | | + + +--------+ + + documented as of this encounter Visit Diagnoses + + | Diagnosis | + + | Sleep apnea, unspecified type - Primary | + + | Alveolar hypoventilation Other dyspnea and respiratory abnormality | + + documented in this encounter"
--- OUTSIDE RECORDS SUMMARY | ~2019-04-18 | XMS | Encounter Summary ---
Demographics + + + | Address | [address] | | | [place] [address] | + + + | Home Phone | | + + + | Preferred Language | Unknown | + + + | Marital Status | Single | + + + | Scientology Affiliation | Unknown | + + + | Race | Unknown | + + + | Ethnic Group | Unknown | + + + Author + + + | Author | [facility] | | | and [place] | + + + | Organization | [facility] | | | [...] | | | | | [place] [address] | | + + + + + | Robson Min | ECON | Unknown | | + + + + + | Isabella Whitehead | ECON | Unknown | | + + + + + Care Team Providers + +------+ + | Care Sign Language Teacher Name | Role | Phone | + +------+ + | Juanito Avery | DOMONIQUE | | + +------+ + Reason for Visit + + + | Reason | Comments | + + + | Follow-up | 3 month/Alveolar hypoventilation | + + + Evaluate & Treat (Routine) +--------+--------+ + + + + | Status | Reason | Specialty | Diagnoses / | Referred By | Referred To | | | | | Procedures | Contact | Contact | +--------+--------+ + + + + | Closed | | Pulmonary | Diagnoses | Bryon, | Harjinder, | | | | Disease / | Chronic | TIMOTHY Carcamo | MD Navdeep | | | | Pulmonology | obstructive | [address] | | | | | pulmonary | [place] | [place], | | | | | disease, | [place], | [place] [address] | | | | | unspecified | [place] | Phone: | | | | | ([facility]) | [address] | [phone] | | | | | Obstructive | Phone: | Fax: | | | | | sleep apnea | [phone] | [phone] | | | | | (adult) | Fax: | | | | | | (pediatric) | [phone] | | | | | | Procedures | | | | | | | F/U APPT DR | | | | | | | DARRICK | | | | | | | HARJINDER | | | | | | | 07/18/18 | | | +--------+--------+ + + + + Encounter Details +--------+---------+ + + + | Date | Type | Department | Care Team | Description | +--------+---------+ + + + | 01/25/ | [facility] | [facility] [place] | Navdeep Grande, | COPD, moderate (HCC) | | 2019 | Visit | PULMONARY [address] | (Primary Dx); | | | | [place], | [place], [place] | Tobacco use | | | | [place] [address] | [id number] | disorder; Alveolar | | | | [phone] | | hypoventilation; | | | | | | COPD, frequent | | | | | | exacerbations (HCC) | +--------+---------+ + + + Social [...] + + + | Blood Pressure | 112/80 | 01/25/2019 10:49 AM | | | | | PDT | | + + + + + | Pulse | 74 | 01/25/2019 10:49 AM | | | | | PDT | | + + + + + | Temperature | - | - | | + + + + + | Respiratory Rate | - | - | | + + + + + | Oxygen Saturation | 98% | 01/25/2019 10:49 AM | RA | | | | PDT | | + + + + + | Inhaled Oxygen | - | - | | | Concentration | | | | + + + + + | Weight | 98.5 kg (217 lb 2.5 | 01/25/2019 10:49 AM | | | | oz) | PDT | | + + + + + | Height | 165.1 cm (5' 5") | 01/25/2019 10:49 AM | | | | | PDT | | + + + + + | Body Mass Index | 36.14 | 01/25/2019 10:49 AM | | | | | PDT | | + + + + + documented in this encounter Patient Instructions Patient Instructions Navdeep Grande MD - 01/25/2019 11:00 AM PDT Preventing Common Respiratory Infections Respiratory infections such as colds and influenza ( the flu ) are common in winter. Th nitin infections are often caused by viruses. They may share some symptoms, but not all respir atory infections are the same. Some make you more sick than others. You can take steps to pr event common respiratory infections. And if you get sick, you can take care of yourself to k eep the infection from getting worse. What is a cold? Symptoms include runny nose, coughing and sneezing, and sore throat. Cold symptoms tend to be milder than flu symptoms. Symptoms tend to come on slowly. They last for a few days to about a week. With a cold, you can still do most of the things you usually do. What is the flu? Symptoms include fever, headache, fatigue, cough, sore throat, runny nose, and muscle ac hes. Children may have upset stomach and vomiting, but adults usually don t. Symptoms tend to come on quickly. Some, such as fatigue and cough, can last a few weeks. With the flu, you may feel worn out and not able to do normal activities. It s most likely NOT the flu if an adult has vomiting or diarrhea for a day or two. Th is so-called stomach flu is probably a GI (gastrointestinal) infection. When the infection gets worse Without proper care, a respiratory infection can get worse. It can lead to serious complica tions and . If you aren t getting better, call your healthcare provider. Complication s can include: Bronchitis (infection of the airways that leads to shortness of breath and coughing up t hick yellow or green mucus) Pneumonia (infection of the lungs in which fluid and mucus settle in the lungs, making b reathing difficult) Worsening of chronic conditions such as heart failure, chronic lung disease, asthma, or diabetes Severe dehydration (loss of fluids) Sinus problems Ear infections Get a flu vaccine A fluvaccine protects you from influenza (but not other colds or infections). Get a vacci ne each fall, before flu season starts. This can be done at a clinic, healthcare provider s office, drugstore, senior center, or through your workplace. Get pneumococcal vaccines Pneumonia can be a complication of influenza. There are 2 pneumococcal pneumonia vaccines t hat protect against many types of pneumonia. Talk with your healthcare provider about these important vaccines. Keep germs from spreading No one likes getting sick. To protect yourself and others from cold and flu germs: Wash your hands often. Use alcohol-based hand side boss when you don t have access to soap and water. Don t touch your eyes, nose, and mouth. This may help you keep germs out of your body. Try to avoid people with respiratory infections. You may want to stay out of crowds [facility] flu season (winter). Ask your healthcare provider if you should get a pneumonia vaccination. How to wash your hands Use warm water and plenty of soap. Work up a good lather. Clean your whole hand, under your nails, between your fingers, and up your wrists. Wash for at least 15 to 20 seconds. Don t just wipe rub well. Rinse. Let the water run down your fingertips, not up your wrists. In a public restroom, use a paper towel to turn off the faucet and open the door. Date Last Reviewed: 03/19/[id number] [employer]. [address] [place] [address], [place] [address]. All righ ts reserved. This information is not intended as a substitute for professional medical care. Always follow your healthcare professional's instructions. documented in this encounter Progress Notes Navdeep Grande MD - 01/25/2019 11:00 AM PDTFormatting of this note might be different f rom the original. Pulmonary Follow Up 01/25/2019 HPI Kait Min is a 48 y.o. female patient of Juanito Avery here today for follow up of moderate COPD, likely frequent exacerbations of COPD, alveolar hypoventilation and ongoing t obacco use. The last pulmonary clinic visit was on 09/22/18. Since their last appointment they feel like their breathing issues have been stable. They have not had any acute pulmonary illnesses. The patient has not required a prednisone taper since our last clinic appointment. Likewise Kait has not required antibiotics for a COPD exacerbation since our last clinic appointment. The patient is currently on a daily regimen of Advair for their COPD. Following the patien audelia's last clinic appointment attempts to obtain Daliresp were not successful. Specifically t he medication is not covered by the patient's insurance. They do feel like this medication regimen is/are controlling their symptoms. Currently she is using their short acting bronch odilator, ProAir, 2 times a week. Currently the patient is able to walk 200 yards at their own pace on level ground before de veloping dyspnea. They are not exercising regularly. Their typical exercise consists of walk ing. Kait are not enrolled in cardiac/pulmonary rehabilitation. They have not completed p ulmonary rehabilitation in the past. Kait does not cough chronically and does not produce mucous. They have not had hemoptysi s since our last appointment. She has been evaluated for nocturnal oxygen. They currently are using nocturnal oxygen. Hannah harmon is currently on 5 LPM at night while sleeping. Since her last clinic appointment Ms. Ap hamron has discontinued supplemental oxygen with exertion.. They have reported recent symptoms of nasal congestion, runny nose or post nasal drip. The patient have received this year's influenza vaccination. They are up to date with thei r Pneumovax and Prevnar 13. Patient is currently smoking 10 to 12 cigarettes a day and is using Chantix. Dr. Jag ulloa ts to meet with Megan privately there is accidental I I I have already met with them in and so I mean so all of this I did okay sounds good thanks, Past Medical History Past Medical History: Diagnosis Date Abnormal chest CT Most likely postoperative decortication changes Acid reflux disease Angina pectoris (HCC) Arrhythmia Bipolar 1 disorder ([facility]) CHRONIC TENSION HEADACHE Classical migraine without mention of intractable migraine Diabetes mellitus, type 2 ([facility]) Empyema lung ([facility]) 2005 right GI bleeding Hypercholesterolemia Hypertension Hypothyroidism IBS (irritable bowel syndrome) Knee pain Lymphedema Myocardial infarction ([facility]) Nausea and vomiting Nocturia Obesity Panic anxiety syndrome Pneumonia Pyoderma gangreosum-LE RA (rheumatoid arthritis) ([facility]) Followed by Dr. Becerra Rheumologist in [place] Reflux esophagitis Restless leg syndrome Urinary hesitancy Vitamin D deficiency Wrist pain Social History: She reports that she has been smoking cigarettes. She started smoking about 35 years ago. She has a 20.00 pack-year smoking history. She has never used smokeless tobacco. She reports that she drinks alcohol. She reports that she does not use drugs. Allergies: Allergies Allergen Reactions Adhesive & Tape Other (See Comments) Other reaction(s): Other (See Comments) Skin sensitivity Skin sensitivity Azithromycin Hives Lamotrigine Medications: Current Outpatient Medications: albuterol (PROAIR HFA) 90 mcg/puff inhaler, Inhale 2 puffs into the lungs every 4 hour s as needed for Wheezing or Shortness of Breath., Disp: 1 Inhaler, Rfl: 11 aspirin 81 mg EC tablet, Take 81 mg by mouth Daily., Disp: , Rfl: atorvaSTATin (LIPITOR) 20 mg tablet, Take 20 mg by mouth nightly., Disp: , Rfl: azaTHIOprine (IMURAN) 50 mg tablet, Take 1 tablet by mouth every morning., Disp: , Rfl : BANOPHEN 25 MG capsule, Take 25 mg by mouth nightly as needed., Disp: , Rfl: buprenorphine (BUTRANS) 20 mcg/hr patch, Place 1 patch onto the skin Once a week., Dis p: , Rfl: busPIRone (BUSPAR) 10 MG tablet, Take 10 mg by mouth every morning., Disp: , Rfl: cloNIDine (CATAPRES) 0.3 mg/[address], [address] 1 patch onto the skin Once a week., Dis p: , Rfl: Continuous Blood Gluc Sensor (FREESTYLE HUAN 14 DAY SENSOR) [facility], , Disp: , Rfl: DOK 100 MG capsule, Take 100 mg by mouth 2 times daily., Disp: , Rfl: ergocalciferol (VITAMIN D-2) 50,000 units capsule, Take 50,000 Units by mouth Once a w [place]., Disp: , Rfl: fluticasone-salmeterol (ADVAIR HFA) 115-21 MCG/ACT inhaler, Inhale 2 puffs into the augie ngs 2 times daily. Rinse mouth and throat after use., Disp: 1 Inhaler, Rfl: 3 LANTUS SOLOSTAR 100 UNIT/ML injection (pen), Inject 20 Units under the skin nightly., Disp: , Rfl: levothyroxine (SYNTHROID) 88 mcg tablet, Take 88 mcg by mouth every morning (before br eakfast)., Disp: , Rfl: magnesium oxide (MAG-OX) 400 mg tablet, Take 1 tablet by mouth Daily., Disp: , Rfl: metFORMIN (GLUCOPHAGE) 500 mg tablet, Take 500 mg by mouth 2 times daily (with breakfa st & dinner)., Disp: , Rfl: metoclopramide (REGLAN) 10 mg tablet, Take 10 mg by mouth as needed., Disp: , Rfl: omeprazole (PRILOSEC) 20 mg capsule, Take 1 capsule by mouth every morning (before jermaine akfast)., Disp: 90 capsule, Rfl: 3 ondansetron (ZOFRAN) 4 mg tablet, Take 4 mg by mouth as needed., Disp: , Rfl: pregabalin (LYRICA) 150 MG capsule, Take 150 mg by mouth 2 times daily., Disp: , Rfl: Respiratory Therapy Supplies [facility], Portable oxygen concentrator to provide O2 at 1 l/m continuous via nasal cannula. Duration: Lifetime Dx: COPD J44.9, Disp: 1 each, Rfl: 0 roflumilast (DALIRESP) 500 mcg tablet, Take 1 tablet by mouth Daily., Disp: 30 tablet, Rfl: 5 sulfaSALAzine (AZULFIDINE) 500 MG EC tablet, Take 1,000 mg by mouth 2 times daily., Di sp: , Rfl: tiZANidine (ZANAFLEX) 4 mg tablet, Take 8 mg by mouth nightly., Disp: , Rfl: torsemide (DEMADEX) 20 mg tablet, Take 20 mg by mouth Daily. With 5mg for total of 25m g, Disp: , Rfl: torsemide (DEMADEX) 5 mg tablet, Take 5 mg by mouth Daily. Take with 20mg for total of 25mg, Disp: , Rfl: traZODone (DESYREL) 100 mg tablet, Take 300 mg by mouth nightly., Disp: , Rfl: Varenicline Tartrate (CHANTIX PO), Take 5 mg by mouth 2 times daily., Disp: , Rfl: vortioxetine (TRINTELLIX) 10 mg tablet, Take 10 mg by mouth every morning., Disp: , Rf l: ziprasidone (GEODON) 60 MG capsule, Take 60 mg by mouth nightly., Disp: , Rfl: ziprasidone (GEODON) 80 MG capsule, Take 80 mg by mouth nightly., Disp: , Rfl: Immunizations: Immunization History Administered Date(s) Administered INFLUENZA PF 18 Y OR >,TRIVALENT RECOMBINANT 02/03/2012, 02/17/2013, 01/17/2014 INFLUENZA PF QUAD(PED/ADOL/ADULT),PSKT or VIAL 02/15/2015, 02/17/2016 INFLUENZA PF TRIVALENT(PED/ADOL/ADULT), PSKT 03/07/2009, 02/18/2010, 01/17/2014, 2013 INFLUENZA QUADR W/PRES (PED/ADOL/ADULT) MULTIDOSE 01/27/2017, 02/10/2018 INFLUENZA, [id number], UNSPECIFIED 03/09/2009 INFLUENZA, UNSPECIFIED FORMULATION 04/27/2000, 02/04/2011, 02/03/2012, 01/10/2013, 11/0 04/2012, 01/10/2015 PNEUMOCOCCAL CONJUGATE 13-VALENT (PCV13) 03/19/2013, 04/24/2014 PNEUMOCOCCAL POLYSACCHARIDE 23-VALENT (PPSV23) 04/04/2009, 03/22/2013, 01/10/2015 TDAP, (ADOL/ADULT) 08/29/2011 Objective BP 112/80 | Pulse 74 | Ht 1.651 m (5' 5") | Wt 98.5 kg (217 lb 2.5 oz) | SpO2 98% Comme nt: RA | BMI 36.14 kg/m Physical Exam Constitutional: She is oriented to person, place, and time and well-developed, well-nourish ed, and in no distress. HENT: Head: Normocephalic. Nose: No mucosal edema. [...] She has no rales. Musculoskeletal: She exhibits no edema. Lymphadenopathy: She has no cervical adenopathy. Neurological: She is alert and oriented to person, place, and time. Gait normal. Skin: Skin is warm and intact. No cyanosis. Nails show no clubbing. Psychiatric: Affect normal. Data: Walking oximetry performed on 09/22/2018 showed that the patient's O2 saturation began at 96% and nadired at 89% after walking 800 feet over 4 minutes. Assessment 1. COPD moderate. Currently treated with Advair and as needed albuterol via metered-dos e inhaler. Ms. Min is up-to-date with respect to her seasonal influenza vaccination, Prev oanh Pneumovax. She is not able to participate in regular scheduled exercise. Though the patient likely has the phenotype of frequent exacerbations of COPD she has not h ad recurrent exacerbation over the last 3 months. Daliresp is not a treatment option as not ed above. The patient cannot use chronic azithromycin secondary to an allergic reaction. 2. Tobacco use patient continues to smoke approximately half a pack of cigarettes a day . Likewise she is using Chantix and has a plan to quit smoking. 3. Hypoxemia recent exertional oximetry assessment does not show evidence of significant oxygen desaturation with exertion. Supplemental oxygen is been discontinued with exertion. The patient is wearing supplemental oxygen at 5 L/min based on a polysomnogram from . Primary etiology of the patient's nocturnal hypoxemia is likely COPD. An elevated CO2 cons istent with alveolar hypoventilation was not noted on recent arterial blood gas testing perf ormed during the day. Plan 1. The interval between pulmonary clinic follow-up appointments will be lengthened to 6 mo nths. 2. Smoking cessation strongly encouraged. CC: Juanito Avery Tdocumented in this encounter Plan of Treatment +--------+---------+ + + + | Date | Type | Specialty | Care Team | Description | +--------+---------+ + + + | 06/19/ | Office | Neurology | Jimbo Samayoa MD | | | 2019 | Visit | | [address] | | | | | | [place] | | | | | | [phone] | | | | | | | | +--------+---------+ + + + | 07/26/ | Office | Pulmonology | Navdeep Grande, | | | 2020 | Visit | | [address] | | | | | | [place] | | | | | | [address] | | | | | | | | +--------+---------+ + + + documented as of this encounter Visit Diagnoses + + | Diagnosis | + + | COPD, moderate (HCC) - Primary Chronic airway obstruction, not elsewhere classified | + + | Tobacco use disorder | + + | Alveolar hypoventilation Other dyspnea and respiratory abnormality | + + | COPD, frequent exacerbations (HCC) Chronic airway obstruction, not elsewhere | | classified | + + documented in this encounter
--- OUTSIDE RECORDS SUMMARY | ~2019-04-18 | XMS | Encounter Summary ---
Demographics + + + | Address | [address] | | | [place] [address] | + + + | Home Phone | | + + + | Preferred Language | Unknown | + + + | Marital Status | Single | + + + | Presybeterian Affiliation | Unknown | + + + | Race | Unknown | + + + | Ethnic Group | Unknown | + + + Author + + + | Author | Located Within [facility] | | | and [place] | + + + | Organization | Located Within [facility] | | [...] | | | | | [place] [address] | | + + + + + | Robson Min | ECON | Unknown | | + + + + + | Isabella Whitehead | ECON | Unknown | | + + + + + Care Team Providers + +------+ + | Care Kiln Door Builder Name | Role | Phone | + +------+ + | Bart Ba DO | PCP | | + +------+ + Reason for Visit +--------+ + | Reason | Comments | +--------+ + | COPD | | +--------+ + Evaluate & Treat (Routine) +--------+--------+ + + + + | Status | Reason | Specialty | Diagnoses / | Referred By | Referred To | | | | | Procedures | Contact | Contact | +--------+--------+ + + + + | Closed | | Pulmonary | Diagnoses | Mejia, | Harjinder, | | | | Disease / | Acute | Bart Bell DO | MD Navdeep | | | | Pulmonology | respiratory | [id number] | [address] | | | | | failure, | [address] | [place], | | | | | unspecified | [place] | [place] [address] | | | | | whether with | [address] | Phone: | | | | | hypoxia or | [place], [place] | [phone] | | | | | hypercapnia | [address] | Fax: | | | | | ([facility]) | Phone: | [phone] | | | | | Procedures | [phone] | | | | | | F/U LAST | Fax: | | | | | | SEEN | [phone] | | | | | | 05/26/16 | | | +--------+--------+ + + + + Encounter Details +--------+---------+ + + + | Date | Type | Department | Care Team | Description | +--------+---------+ + + + | 10/18/ | Office | [facility] [place] | Navdeep Grande, | COPD, mild (HCC) | | 2018 | Visit | PULMONARY [address] | MD [address] | (Primary Dx); | | | | [place], | [place], [place] | Alveolar | | | | [place] [address] | [phone] | hypoventilation | | | | [phone] | | | +--------+---------+ + + + Social History [...] + + + | Blood Pressure | 140/98 | 10/18/2017 11:29 AM | | | | | PDT | | + + + + + | Pulse | 96 | 10/18/2017 11:29 AM | | | | | PDT | | + + + + + | Temperature | - | - | | + + + + + | Respiratory Rate | - | - | | + + + + + | Oxygen Saturation | 90% | 10/18/2017 11:29 AM | | | | | PDT | | + + + + + | Inhaled Oxygen | - | - | | | Concentration | | | | + + + + + | Weight | 117.8 kg (259 lb | 10/18/2017 11:29 AM | | | | 11.2 oz) | PDT | | + + + + + | Height | 167.6 cm (5' 6") | 10/18/2017 11:29 AM | | | | | PDT | | + + + + + | Body Mass Index | 41.92 | 10/18/2017 11:29 AM | | | | | PDT | | + + + + + documented in this encounter Patient Instructions Patient Instructions Navdeep Grande MD - 10/18/2017 11:30 AM PDT Fluticasone; Salmeterol inhalation powder Brand Names: Advair What is this medicine? FLUTICASONE; SALMETEROL (floo TIK a sone; ernst ME te role) inhalation is a combination of tw o medicines that decrease inflammation and help to open up the airways of your lungs. It is used to treat COPD. This medicine is also used to treat asthma. Do NOT use for an acute asth ma attack. Do NOT use for a COPD attack. How should I use this medicine? This medicine is inhaled through the mouth. Rinse your mouth with water after use. Make anusha e not to swallow the water. Follow the directions on the prescription label. Do not use a sp acer device with this inhaler. Take your medicine at regular intervals. Do not take your med icine more often than directed. Do not stop taking except on your doctor's advice. Make sure that you are using your inhaler correctly. Ask you doctor or health care provider if you gooden ve any questions. A special MedGuide will be given to you by the pharmacist with each prescription and refill . Be sure to read this information carefully each time. Talk to your gymnasium teacher regarding the use of this medicine in children. Special care may be needed. What side effects may I notice from receiving this medicine? Side effects that you should report to your doctor or health home care liaison as soon as p ossible: allergic reactions like skin rash or hives, swelling of the face, lips, or tongue chest pain dizziness or lightheaded fever or chills irregular heartbeat vision problems Side effects that usually do not require medical attention (report to your doctor or health home care liaison if they continue or are bothersome): coughing, hoarseness, throat irritation headache nervousness stomach problems stuffy nose tremor What may interact with this medicine? Do not take this medicine with any of the following medications: MAOIs like Carbex, Eldepryl, Marplan, Nardil, and Parnate This medicine may also interact with the following medications: aminophylline or theophylline antiviral medicines for HIV or AIDS diuretics medicines for colds medicines for depression or emotional conditions medicines for fungal infections like ketoconazole and itraconazole medicines for the heart like metoprolol, propanolol medicines for weight loss including some herbal products other medicine for breathing problems pimozide some antibiotics like clarithromycin, erythromycin, levofloxacin, linezolid, and telithr omycin vaccines What if I miss a dose? If you miss a dose, use it as soon as you remember. If it is almost time for your next dose , use only that dose and continue with your regular schedule, spacing doses evenly. Do not u se double or extra doses. Where should I keep my medicine? Keep out of the reach of children. Advair: Store at room temperature between 68 and 77 degrees F (20 and 25 degrees C). Do not leave your medicine in the heat or sun. Throw away 1 month after you open the package or wh enever the dose indicator reads 0, whichever comes first. Throw away unopened packages after the expiration date. Airduo Respiclick: Store at room temperature between 59 and 86 degrees F (15 and 30 degrees C). Avoid exposure to extreme heat, cold, or humidity. Throw away 1 month after you open th e package or whenever the dose indicator reads 0, whichever comes first. Throw away unopened packages after the expiration date. What should I tell my health care provider before I take this medicine? They need to know if you have any of these conditions: bone problems immune system problems diabetes heart disease or irregular heartbeat high blood pressure infection pheochromocytoma seizures thyroid disease worsening asthma an unusual or allergic reaction to fluticasone, salmeterol, other corticosteroids, other medicines, foods, dyes, or preservatives or trying to get breast-feeding What should I watch for while using this medicine? Visit your doctor for regular check ups. Tell your doctor or health home care liaison if yo ur symptoms do not get better. If your symptoms get worse or if you need your short-acting i nhalers more often, call your doctor right away. Do not use this medicine more than every 12 hours. If you have asthma, be aware that using this medicine may increase your risk of dying from asthma- related problems. Talk to your doctor about the risks and benefits of taking this me dicine. NEVER use this medicine for an acute asthma attack. If you are going to have surgery tell your doctor or health home care liaison that you are using this medicine. Try not to come in contact with people with the chicken pox or measles. If you do, call your doctor. NOTE:This sheet is a summary. It may not cover all possible information. If you have questi ons about this medicine, talk to your doctor, pharmacist, or health care provider. Copyright 2017 [employer] documented in this encounter Progress Notes Navdeep Grande MD - 10/18/2017 11:30 AM PDTFormatting of this note might be different f rom the original. Pulmonary Follow Up 10/18/2017 HPI Kait Min is a 47 y.o. female patient of [facility], here today for follow up o f Gold Stage I COPD alveolar hypoventilation. The last pulmonary clinic visit was on 05/26/16. Since their last appointment they feel like their breathing issues have been fluctuating. The patient apparently became quite ill in July 2017 and was hospitalized for 4 days at [facility] with respiratory failure/COPD exacerbation. She was discharged home on supplement al oxygen. Ms. Min has subsequently weaned herself off of supplemental oxygen during the day and continues to wear supplemental oxygen at night. The patient continues to smoke half a pack of cigarettes a day. They have had any acute pulmonary illnesses. The patient has required a prednisone taper si nce our last clinic appointment. Likewise Kait has required antibiotics for a COPD exace rbation since our last clinic appointment. The patient is currently on a daily regimen of Advair for their COPD. it sounds as if Ms. Min is been using her Advair as needed. The patient states that she gets "samples" from Thong Ba.. They do not feel like this medication regimen is/are controlling their symptoms . Currently she is using their short acting bronchodilator, ProAir, 2-3 times a day. Currently the patient is able to walk 1 block at their own pace on level ground before deve loping dyspnea/back problems. They are not exercising regularly. Their typical exercise cons ists of walking. Kait are not enrolled in cardiac/pulmonary rehabilitation. They have not completed pulmonary rehabilitation in the past. Kait does cough chronically and does not produce mucous. They have not had hemoptysis sin ce our last appointment. She has been evaluated for nocturnal oxygen. They currently are using nocturnal oxygen. Hannah harmon is currently on 1 LPM at night while sleeping. They report excellent compliance. They have not reported recent symptoms of nasal congestion, runny nose or post nasal drip. The patient have received this year's influenza vaccination. They are up to date with thei r Pneumovax and Prevnar 13. The patient's rheumatoid arthritis is apparently well-controlled. Chronic pain issues are present. The patient has recently been referred to a chronic pain center. Past Medical History Past Medical History: Diagnosis Date Abnormal chest CT Most likely postoperative decortication changes Acid reflux disease Bipolar 1 disorder (HCC) CHRONIC TENSION HEADACHE Classical migraine without mention of intractable migraine Diabetes mellitus, type 2 ([facility]) Empyema lung ([facility]) 2006 right GI bleeding Hypercholesterolemia Hypertension Hypothyroidism [...] Hives Lamotrigine Medications: Current Outpatient Prescriptions: albuterol (PROVENTIL) 90 mcg/puff inhaler (ED prepack), Inhale 2 puffs into the lungs every 4 hours., Disp: , Rfl: albuterol-ipratropium (DUONEB) 2.5-0.5 mg/3 mL SOLN, Inhale 3 mLs into the lungs as ne eded., Disp: , Rfl: aspirin 81 MG tablet, Take 81 mg by mouth Daily., Disp: , Rfl: azaTHIOprine (AZASAN) 75 MG TABS, Take 75 mg by mouth 2 times daily., Disp: , Rfl: busPIRone (BUSPAR) 5 mg tablet, Take 5 mg by mouth 2 times daily., Disp: , Rfl: cloNIDine (CATAPRES) 0.3 mg/24 hr, Place 1 patch onto the skin Once a week., Disp: , R fl: ergocalciferol (VITAMIN D-2) 50,000 units capsule, Take 50,000 Units by mouth Once a w [place]., Disp: , Rfl: HYDROcodone-acetaminophen (NORCO) 7.5-325 mg per tablet, Take 1 tablet by mouth every 4 hours as needed., Disp: , Rfl: LANTUS SOLOSTAR 100 UNIT/ML injection (pen), Inject 20 Units under the skin nightly., Disp: , Rfl: levothyroxine (SYNTHROID, LEVOTHROID) 300 MCG tablet, Take 300 mcg by mouth Daily., Di sp: , Rfl: levothyroxine (SYNTHROID, LEVOTHROID) 50 mcg tablet, Take one tablet daily, Disp: , Rf l: LINZESS 290 MCG capsule, Take one capsule daily, Disp: , Rfl: LYRICA 75 MG capsule, Take one capsule three times daily, Disp: , Rfl: metFORMIN (GLUCOPHAGE) 500 mg tablet, Take 1,000 mg by mouth 2 times daily (with break fast & dinner)., Disp: , Rfl: omeprazole (PRILOSEC) 20 mg capsule, Take 1 capsule by mouth every morning (before jermaine akfast)., Disp: 90 capsule, Rfl: 3 promethazine (PHENERGAN) 25 mg tablet, Take 25 [...] mg by mouth Daily., Disp: , Rfl: VENTOLIN HFA 108 (90 BASE) MCG/ACT inhaler, Inhale 2 puffs into the lungs every 4 hour s as needed for Wheezing., Disp: , Rfl: ziprasidone (GEODON) 60 MG capsule, Take 80 mg by mouth Daily., Disp: [...] POLYSACCHARIDE 23-VALENT (PPSV23) 04/04/2009, 03/19/2013 Objective BP (!) 140/98 | Pulse 96 | Ht 1.676 m (5' 6") | Wt 117.8 kg (259 lb 11.2 oz) | SpO2 90% | BMI 41.92 kg/m Physical Exam Constitutional: She is oriented [...] edema (trace of pitting edema to the upper calf bilaterally). Lymphadenopathy: She has no cervical adenopathy. Neurological: She is alert and oriented to person, place, and time. Gait normal. Skin: Skin is warm and intact. No cyanosis. Nails show no clubbing. Psychiatric: Affect normal. Data: Records from the patient's recent hospitalization including the discharge summary dated 07/19 09/[address] scan of the chest from 08/08/17 is notable for no evidence of pulmonary emboli. A solita ry pulmonary nodular density which is pleural-based is located in the left upper lobe and th ere is diffuse pleural nodularity noted on the right. Assessment 1. Recent episode of respiratory failure available medical records reference what sounds like a severe COPD exacerbation associated with worsening hypoxemia requiring hospitalizati on. A CT scan of the chest did not show evidence of other diagnoses. 2. COPD in the past known to have Gold stage I COPD. Back in May 2016 Ms. Min wa s using Advair and as needed albuterol. Somewhere along the way the Advair got changed to a s needed. Ms. Min continues to use tobacco (half a pack of cigarettes a day). 3. Alveolar hypoventilation currently treated with supplemental oxygen 1 L per min at [facility] while sleeping. Total duration of the patient's clinic appointment was in excess of 30 minutes. Greater th an 50% time was spent in counseling related to management of COPD and assessment of hypoxemi a. Plan 1. Patient is encouraged to use her Advair 250/50, 1 inhalation twice daily. 2. Nocturnal oximetry assessment on oxygen 1 L/m. 3. Spirometry lung volumes and diffusion capacity. 4. Exertional oximetry assessment. 5. Smoking cessation strongly encouraged. 6. Pulmonary clinic follow-up appointment to review the above noted studies in 4 weeks' ti me. CC: Cara Patton signed by Navdeep Grande MD at 10/18/2017 1:24 PM PDT documented in this encounter Plan of Treatment +--------+---------+ + + + | Date | Type | Specialty | Care Team | Description | +--------+---------+ + + + | 06/19/ | Office | Neurology | Jimbo Samayoa MD | | | 2019 | Visit | | [address] | | | | | | [place] | | | | | | [address] | | | | | | | | +--------+---------+ + + + | 07/26/ | Office | Pulmonology | Navdeep Grande, | | | 2019 | Visit | | MD [address]ely [address] | | | | | | [place] | | | | | | [id number] | | | | | | | | +--------+---------+ + + + + + +--------+ + + | Name | Type | Priori | Associated Diagnoses | Order Schedule | | | | ty | | | + + +--------+ + + | Overnight oximetry, | Respiratory | Routin | COPD, mild (HCC) | Expected: | | oxygen | Care | e | Alveolar | 10/18/2017, Expires: | | | | | hypoventilation | 10/18/2018 | + + +--------+ + + documented as of this encounter Results Pulmonary function test full PFT; home oxygen evaluation (11/19/2017 12:24 PM PDT) + + + | Narrative | Performed At | + + + | [facility] | | | MD Harjinder 11/19/2017 12:26 PULMONARY FUNCTION TESTING | | | SPIROMETRY: The FVC was 2.27 L or 62 % of predicted. The FEV1 was 1.88 | | | L or 63 % of predicted. FEV1/FVC ratio was 83 %. LUNG VOLUMES: The | | | total lung capacity was 4.60 L or 86 % of predicted. The residual | | | volume was 2.29 L or 126 % of predicted. RV/TLC ratio was 149 % of | | | predicted. DIFFUSION CAPACITY: The diffusion capacity was 15.0 | | | mL/mmHg per minute or 53 % of predicted. IMPRESSION: Spirometry is | | | consistent with moderate restrictive physiology. Lung volume testing | | | is consistent with borderline gas trapping physiology. Diffusion | | | capacity is moderately reduced and is not corrected for measured | | | hemoglobin. Compared to pulmonary function tests performed 08/25/13 the | | | patient's diffusion capacity has fallen 28% and the forced vital | | | capacity has decreased 33%. Test performed: 11/20/15Electronically | | | signed by: Navdeep Grande MD 11/19/2017 12:24[facility] | | |physiology. Lung volume testing is consistent with borderline gas | | |trapping physiology. Diffusion capacity is moderately reduced and | | |is not corrected for measured hemoglobin. | | | | | |Compared to pulmonary function tests performed 08/25/13 the | | |patient's diffusion capacity has fallen 28% and the forced vital | | |capacity has decreased 33%. | | | | | |Test performed: 11/20/15 | | |Electronically signed by: Navdeep Grande MD 11/19/2017 12:24 | | |[facility] | | + + + documented in this encounter Visit Diagnoses + + | Diagnosis | + + | COPD, mild (HCC) - Primary Chronic airway obstruction, not elsewhere classified | + + | Alveolar hypoventilation Other dyspnea and respiratory abnormality | + + documented in this encounter
--- OUTSIDE RECORDS SUMMARY | ~2019-04-18 | XMS | Encounter Summary ---
Demographics + + + | Address | [address] | | | [place] [address] | + + + | Home Phone | | + + + | Preferred Language | Unknown | + + + | Marital Status | Single | + + + | Pentecostal Affiliation | Unknown | + + + | Race | Unknown | + + + | Ethnic Group | Unknown | + + + Author + + + | Author | [facility] | | | and [place] | + + + | Organization | [facility] | | | [...] | | | | | [place] [address] | | + + + + + | Robson Min | ECON | Unknown | | + + + + + | Isabella Whitehead | ECON | Unknown | | + + + + + Care Team Providers + +------+ + | Care Director And Professor Name | Role | Phone | + +------+ + | Bart Ba DO | PCP | | + +------+ + Reason for Visit + + + | Reason | Comments | + + + | Follow-up | abdominal pain | + + + Evaluate & Treat (Routine) +--------+--------+ + + + + | Status | Reason | Specialty | Diagnoses / | Referred By | Referred To | | | | | Procedures | Contact | Contact | +--------+--------+ + + + + | Closed | | Gastroenterol | Diagnoses | [place], | [place], | | | | ogy | Abdominal | Bart Bell DO | MD Cecilio | | | | | pain, | [address] | [address] | | | | | generalized | Gi[place]anna [place] | [place], | | | | | follow up | [address] [place] | [place] [address] | | | | | abd pain, | 3-106 | Phone: | | | | | nause & | [place] | [phone] | | | | | vomiting/per | [address] | Fax: | | | | | swathi/pcp | Phone: | [phone] | | | | | shade/moda/ | [phone] | | | | | | called for | Fax: | | | | | | referral | [phone] | | | | | | 10/04/13nns | | | | | | | Procedures | | | | | | | [place] OFFICE | | | | | | | OUTPATIENT | | | | | | | VISIT 25 | | | | | | | MINUTES | | | | | | | OFFICE VISIT | | | | | | | REGULAR | | | +--------+--------+ + + + + Encounter Details +--------+---------+ + + + | Date | Type | Department | Care Team | Description | +--------+---------+ + + + | 11/01/ | Office | [facility] | Cecilio Amato MD | Nausea & vomiting | | 2014 | Visit | GASTROENTEROLOGY | [address] | (Primary Dx); IBS | | | | [address] | [place] | (irritable bowel | | | | [address] | [address] | syndrome) | | | | [address] | [phone] | | | | | [phone] | | | +--------+---------+ + + + [...] + + + | Blood Pressure | 140/84 | 11/01/2013 3:19 PM | | | | | PDT | | + + + + + | Pulse | 84 | 11/01/2013 3:19 PM | | | | | PDT | | + + + + + | Temperature | 36.8 C (98.3 F) | 11/01/2013 3:19 PM | | | | | PDT | | + + + + + | Respiratory Rate | 16 | 11/01/2013 3:19 PM | | | | | PDT | | + + + + + | Oxygen Saturation | - | - | | + + + + + | Inhaled Oxygen | - | - | | | Concentration | | | | + + + + + | Weight | - | - | | + + + + + | Height | - | - | | + + + + + | Body Mass Index | - | - | | + + + + + documented in this encounter Progress Notes Cecilio Amato MD - 11/01/2013 4:11 PM PDT Subjective: Patient ID: Kait Min is a 43 y.o. female. HPI Current Outpatient Prescriptions on File Prior to Visit Medication Sig Dispense Refill albuterol (VENTOLIN HFA) 90 mcg/puff inhaler Inhale 2 puffs into the lungs every 4 hour s as needed. azaTHIOprine (AZASAN) 75 MG TABS Take 50 mg by mouth 4 times daily. zdeegmirtj-wcbqcau-hoooyhls (BUTALBITAL COMPOUND/ASA) per tablet One tablet by mouth ev emily 6 hours as needed for migraine dicyclomine (BENTYL) 10 mg capsule Take 1 capsule by mouth every 6 hours as needed. 15 0 capsule 3 ergocalciferol (VITAMIN D-2) 50,000 units capsule Take 50,000 Units by mouth Daily. fluticasone-salmeterol (ADVAIR) 100-50 mcg/puff diskus inhaler Inhale 1 puff into the l ungs Twice Daily. gabapentin (NEURONTIN) 600 MG tablet Take 600 mg by mouth 3 times daily. HYDROcodone-acetaminophen (NORCO) 7.5-325 mg per tablet Take 7.5-325 mg by mouth every 4 hours. hyoscyamine (LEVSIN) 0.[address] 0.125 mg under the tongue 4 times daily as n eeded. levothyroxine (SYNTHROID, LEVOTHROID) 300 MCG tablet Take 300 mcg by mouth Daily. LORazepam (ATIVAN) 0.5 mg tablet One to two tablets by mouth at bedtime metFORMIN (GLUCOPHAGE) 500 mg tablet Take two tablets by mouth every a.m. and three tab lets every p.m. metoprolol tartrate (LOPRESSOR) 25 mg tablet Take 25 mg by mouth Daily. omeprazole (PRILOSEC) 20 mg capsule Take 1 capsule by mouth every morning (before break fast). 90 capsule 3 promethazine (PHENERGAN) 25 mg tablet Take 25 mg by mouth 3 times daily as needed. ranitidine (ZANTAC) 150 mg tablet Take 150 mg by mouth Daily. simvastatin (ZOCOR) 20 mg tablet Take 20 mg by mouth Daily. sucralfate (CARAFATE) 1 g tablet Take 1 g by mouth 4 times daily. SUMAtriptan (IMITREX) 100 mg tablet 1/2-1 tablet by mouth daily as needed migraine traZODone (DESYREL) 100 mg tablet Take 100 mg by mouth nightly. venlafaxine (EFFEXOR) 75 MG tablet Take 75 mg by mouth 2 times daily. VERAPAMIL HCL PO Take 120 mg by mouth 2 times daily. ziprasidone (GEODON) 60 MG capsule Take 80 mg by mouth Daily. Allergies Allergen Reactions Azithromycin Lamictal Past Medical History Diagnosis Date Wrist pain Diabetes mellitus, type [address]) Vitamin D deficiency Hypercholesterolemia Hypothyroidism Panic anxiety syndrome IBS (irritable bowel syndrome) Restless leg syndrome Urinary hesitancy Lumbago Nocturia Pyoderma gangreosum-LE Bipolar [address] disorder [address]) Hypertension Lymphedema Nausea and vomiting Reflux esophagitis GI bleeding Empyema lung ([facility]) 2005 right Knee pain CHRONIC TENSION HEADACHE Classical migraine without mention of intractable migraine Abnormal chest CT Most likely postoperative decortication changes Past Surgical History Procedure Date Pmtx surgery 2005 Colonoscopy Endoscopy Colonoscopy Upper gastrointestinal endoscopy Family History Problem Relation Age of Onset Diabetes Father Hypertension Father Allergies Father Obesity Father Other (See Comment) Father hypothyroid Ulcer Disease Father Emphysema Mother Diabetes Mother Other (See Comment) Mother epilepsy Hypertension Mother Allergies Mother Obesity Mother Ulcer Disease Mother Tuberculosis Brother Anemia Brother Allergies Brother Other (See Comment) Paternal Grandfather rheumatic fever Colon cancer Other family hx Prostate cancer Other family hx Arthritis Other family hx of Hypertension Paternal Grandmother Stroke Paternal Grandmother Arthritis Paternal Grandmother History Social History Marital Status: Single Spouse Name: N/A Number of Children: N/A Years of Education: N/A Occupational History Not on file. Social History Main Topics Smoking status: Current Every Day Smoker -- 0.3 packs/day for 20 years Types: Cigarettes Smokeless tobacco: Never Used Alcohol Use: No Drug Use: No Sexually Active: Not on file Other Topics Concern Not on file Social History Narrative No narrative on file Review of Systems Constitutional: Positive for unexpected weight change. HENT: Negative. Eyes: Negative. Respiratory: Negative. Cardiovascular: Negative. Gastrointestinal: Nausea; emesis; abd pain; diarrhea Genitourinary: Negative. Musculoskeletal: Negative. Neurological: Negative. Hematological: Negative. Objective: Physical Exam Constitutional: She is oriented to person, place, and time. She appears well-developed and well-nourished. HENT: Head: Normocephalic and atraumatic. Eyes: Pupils are equal, round, and reactive to light. Neck: Normal range of motion. Cardiovascular: Normal rate, regular rhythm and normal heart sounds. Pulmonary/Chest: Effort normal and breath sounds normal. Abdominal: Soft. Bowel sounds are normal. Neurological: She is alert and oriented to person, place, and time. Skin: Skin is warm and dry. Psychiatric: She has a normal mood and affect. Her behavior is normal. Judgment and thought content normal. Assessment: This office note has been dictated. Plan: This office note has been dictated. Cecilio Ramos MD - 0 11/01/2013 12:00 AM [facility] GASTROENTEROLOGY [address] [facility] [address] [place] [address] FAX: [phone] OFFICE VISIT OUTPATIENT GI FOLLOWUP CHIEF COMPLAINT: Nausea and vomiting. HISTORY OF PRESENT ILLNESS: This is a 43-year-old white female with rheumatoid arthritis an d recent 100-pound weight loss due to persistent nausea and vomiting. Workup to date has be en unremarkable, including upper endoscopy with negative biopsies for H pylori. She has als o had colonoscopy, which was unremarkable, as well as laboratory work, including a normal c eliac panel. Gastric emptying study was performed, which was unremarkable, as well. The pat ient does have a history of irritable bowel syndrome and the patient states that Bentyl giv en to her on the last visit has helped her irritable bowel symptoms somewhat. She does, tho ugh, still have persistent nausea and vomiting and has continued to lose weight. She states that she has had this nausea and vomiting for at least 4 or 5 years, approximately the caitlin e amount of time that she has been on azathioprine for her rheumatoid arthritis. Of note, C T scan of the abdomen and pelvis with IV contrast, done 08/13/2013, was unremarkable. She d oes take hydrocodone 4 tablets a day for her rheumatoid arthritis pain and back pain. She o therwise denies heartburn, reflux symptoms. Her diarrhea has improved, but she still has oc casional diarrhea once or twice a week. There is no constipation. She was increased on her Amitiza to twice a day. ASSESSMENT AND PLAN 1. NAUSEA AND VOMITING: Workup to date unremarkable; however, I suspect that her medication s may be causing her nausea and vomiting. Azathioprine can cause diarrhea as well as nausea and vomiting; thus, I encouraged her to speak to her big data developer regarding finding an alternative medication and discontinuing azathioprine. I also advised the patient to find a nother pain medication, since opiate narcotics such as hydrocodone can cause nausea and vom iting, as well. I offered tramadol, however, the patient states that she tried that and it does not work, it just causes her to sleep all day. 2. DIARRHEA: I recommended that she decrease the Amitiza to once a day, or even stop altog ether, especially if she is going to be stopping azathioprine, and her diarrhea may improve by that measure alone. 3. IRRITABLE BOWEL SYNDROME: Recommend that she continue the Bentyl as needed, otherwise f urther evaluation for abdominal pain is not indicated at this time. I advised that the patie nt follow up as needed, especially if her symptoms worsen; however, I feel that she should discuss stopping azathioprine and hydrocodone, with her big data developer. Cecilio Amato MD / RC JOB #: [id number] signed by Cecilio Amato MD at 11/02/2013 5:27 PM PDTdocument ed in this encounter Plan of Treatment +--------+---------+ + + + | Date | Type | Specialty | Care Team | Description | +--------+---------+ + + + | 06/19/ | Office | Neurology | Jimbo Samayoa MD | | | 2019 | Visit | | [address] | | | | | | [place] | | | | | | [address] | | | | | | | | +--------+---------+ + + + | 07/26/ | Office | Pulmonology | Navdeep Grande, | | | 2019 | Visit | | [address] | | | | | | [place] | | | | | | [address] | | | | | | | | +--------+---------+ + + + documented as of this encounter Visit Diagnoses + + | Diagnosis | + + | Nausea & vomiting - Primary Nausea with vomiting | + + | IBS (irritable bowel syndrome) Irritable bowel syndrome | + + documented in this encounter"
--- OUTSIDE RECORDS SUMMARY | ~2019-04-18 | XMS | Encounter Summary ---
Demographics + + + | Address | [address] | | | [place] [address] | + + + | Home Phone | | + + + | Preferred Language | Unknown | + + + | Marital Status | Single | + + + | Yarsanism Affiliation | Unknown | + + + [...] | | | | | [place] [address] | | + + + + + | Robson Min | ECON | Unknown | | + + + + + | Isabella Whitehead | ECON | Unknown | | + + + + + Care Team Providers + +------+ + | Care Security Messenger Name | Role | Phone | + [...] Zhou PEARSON | | | | | [phone] | [place] [address] | | +--------+ + + + + [...] [place] | | | | | | [address] | | | | | | | | +--------+---------+ + + + | 07/26/ | Office | Pulmonology | Navdeep Grande, | | | 2019 | Visit | | [address] | | | | | | [place] | | | | | | [address] | | | | | | | | +--------+---------+ + + + documented as of this encounter Procedures + +--------+ + + + | Procedure Name | Priori | Date/Time | Associated Diagnosis | Comments | | | ty | | | | + +--------+ + + + | XR CHEST AP PORTABLE | Routin | 08/16/2018 | | Results for this | | | e | 8:15 AM | | procedure are in the | | | | PDT | | results section. | + +--------+ + + + documented in this encounter Results XR Chest AP Portable (08/16/2018 8:15 AM PDT) + + | Specimen | [...]
--- OUTSIDE RECORDS SUMMARY | ~2019-04-18 | XMS | Encounter Summary ---
Demographics + + + | Address | [address] | | | [place] [address] | + + + | Home Phone [...] + + + | Author | [facility] | | | and [place] | + + + | Organization | [facility] | | | [...] | | | | | [place] [address] | | + + + + + | Robson Min | ECON | Unknown | | + + + + + | Isabella Whitehead | ECON | Unknown | | + + + + + Care Team Providers + +------+ + | Care Bottle House Pumper Name | Role | Phone | + +------+ + | Ora Slater | PCP | | + +------+ + Reason for Visit +--------+ + | Reason | Comments | +--------+ + | Other | [facility] | +--------+ + Encounter Details +--------+ + + + + | Date | Type | Department | Care Team | Description | +--------+ + + + + | 08/29/ | Telephone | [facility] | Navdeep Grande, | Other ([facility]) | | 2019 | | PULMONARY [address] | MD [address] | | | | | [place], | [place] | | | | | [place] [address] | [address] | | | | | [phone] | | | +--------+ + + + [...] [place] | | | | | | [address] | | | | | | | | +--------+---------+ + + + | 07/26/ | Office | Pulmonology | Navdeep Grande, | | | 2019 | Visit | | [address] | | | | | | [place] | | | | | | [address] | | | | | | | | +--------+---------+ + + + documented as of this encounter Visit Diagnoses Not on filedocumented in this encounter"
--- OUTSIDE RECORDS SUMMARY | ~2019-04-18 | XMS | Encounter Summary ---
Demographics + + + | Address | [address] | | | [place] [address] | + + + | Home Phone | | + + + | Preferred Language | Unknown | + + + | Marital Status | Single | + + + | Quaker Affiliation | CHR | + + + [...] | | | | | [place] [address] | | + + + + + Care Team Providers + +------+ + | Care Supervisor Hanging And Trimming Name | Role | Phone | + +------+ + PCP | Unavailable | + +------+ + Encounter Details +--------+ + + + + | Date | Type | Department | Care Team | Description | +--------+ + + + + | 10/31/ | Respiratory | | Other, Faculty | | | 2006 | Therapy | | [phone] | | +--------+ + + + + [...] 10. | | | | | | PEPTHERAPY . DIMINISHED | | | | | | BOTH BASES . GOOD | | | | | | PRODUCTIVE COUGH: THIN | | | | | | GREEN TANSPUTUM. MINIMAL | | | | | | IMPROVEMENT AFTER | | | | | | TREATMENT Timothy Cabrera, | | | | | | PROPERTY DEVELOPER | | | | + + + [...] [facility] | [address] | [place], [place] | | | DIAGNOSTICS - | [place] | [address] | | | PULMONARY FUNCTION | | | | + + + + + documented in this encounter Visit Diagnoses Not on filedocumented in this encounter"
--- OUTSIDE RECORDS SUMMARY | ~2019-04-18 | XMS | Encounter Summary ---
Demographics + + + | Address | [address] | | | [place] [address] | + + + | Home Phone [...] | | | | | [place] [address] | | + + + + + | Robson Min | ECON | Unknown | | + + + + + | Isabella Whitehead | ECON | Unknown | | + + + + + Care Team Providers + +------+ + | Care Kinesiology Professor Name | Role | Phone | + +------+ + | Ora Slater | PCP | | + +------+ + Reason for Visit Evaluate & Treat (Routine) +--------+ + + + + + | Status | Reason | Specialty | Diagnoses / | Referred By | Referred To | | | | | Procedures | Contact | Contact | +--------+ + + + + + | Closed | Specialty | Sleep | Diagnoses | Aaron, | [facility] | | | Services | Medicine | JESUSITA | Neno Thong | [place] [address] | | | Required | | (obstructive | MD [address] | [place] | | | | | sleep | [facility] | [place], | | | | | apnea) | [facility] | [place] [address] | | | | | Nocturnal | [place], [place] | Phone: | | | | | oxygen | [address] | [phone] | | | | | desaturation | Phone: | Fax: | | | | | E66.2 | [phone] | [phone] | | | | | (ICD-10-CM) | Fax: | | | | | | - [phone] | [phone] | | | | | | (ICD-9-CM) - | | | | | | | Obesity | | | | | | | hypoventilat | | | | | | | ion | | | | | | | syndrome | | | | | | | (HCC) M06.9 | | | | | | | (ICD-10-CM) | | | | | | | - 714.0 | | | | | | | (ICD-9-CM) - | | | | | | | Rheumatoid | | | | | | | arthritis, | | | | | | | involving u | | | | | | | specified | | | | | | | site, | | | | | | | unspecified | | | | | | | rheumatoid | | | | | | | factor | | | | | | | presence | | | | | | | (HCC) | | | | | | | Procedures | | | | | | | [place] POLYSOM | | | | | | | 6/>YRS SLEEP | | | | | | | 4/> ADDL | | | | | | | WHITNEY ATTND | | | | | | | | | | | | | | NPSG+TCO2+AB | | | | | | | G+ 2LPM | | | | | | | SUPLEMENTAL | | | | | | | OXYGEN | | | +--------+ + + + + + Encounter Details +--------+ + + + + | Date | Type | Department | Care Team | Description | +--------+ + + + + | 09/21/ | Hospital | [facility] | Neno Walker | JESUSITA (obstructive | | 2019 - | Encounter | [facility] | Jr., MD [address] | sleep apnea); | | | | CENTER [address] | [address] [place] | Obesity | | 09/22/ | | [place], [place] | [place] [address] | hypoventilation | | 2019 | | [address] | [phone] | syndrome (HCC); | | | | [phone] | | Nocturnal oxygen | | | | | | desaturation; | | | | | | Rheumatoid | | | | | | arthritis, involving | | | | | | unspecified site, | | | | | | unspecified | | | | | | rheumatoid factor | | | | | | presence (HCC); | | | | | | Chronic obstructive | | | | | | pulmonary disease, | | | | | | unspecified COPD | | | | | | type (HCC) | +--------+ + + + + Social [...] + + +---------+ + + | albuterol (PROAIR | Inhale 2 puffs into | 1 | 11 | 08/27/19 | | | HFA) 90 mcg/puff | the lungs every 4 | Inhaler | | 19 | | | inhaler | hours as needed for | | | | | | | Wheezing or | | | | | | | Shortness of Breath. | | | | | + + + +---------+ + + | aspirin 81 mg EC | Take 81 mg by mouth | | 0 | | | | tablet | Daily. | | | | | + + + +---------+ + + | azaTHIOprine | Take 1 tablet by | | 0 | 11/19/19 | | | (IMURAN) 50 mg | mouth every morning. | | | 18 | | | tablet | | | | | | + + + +---------+ + + | buprenorphine | Place 1 patch onto | | 0 | | | | (BUTRANS) 20 mcg/hr | the skin Once a | | | | | | patch | week. | | | | | + + + +---------+ + + | busPIRone (BUSPAR) | Take 10 mg by mouth | | 0 | | | | 10 MG tablet | every morning. | | | | | + + + +---------+ + + | cloNIDine | Place 1 patch onto | | 0 | 05/17/20 | | | (CATAPRES) 0.3 mg/24 | the skin Once a | | | 19 | | | hr patch | week. | | | | | + + + +---------+ + + | | Inhale 2 puffs into | 1 | 3 | 08/30/19 | | | fluticasone-salmeter | the lungs 2 times | Inhaler | | 19 | | | ol (ADVAIR HFA) | daily. Rinse mouth | | | | | | 115-21 MCG/ACT | and throat after | | | | | | inhaler | use. | | | | | + + + +---------+ + + | LANTUS SOLOSTAR | Inject 20 Units | | 0 | 05/25/19 | | | 100 UNIT/ML | under the skin | | | 17 | | | injection (pen) | nightly. | | | | | + + + +---------+ + + | magnesium oxide | Take 1 tablet by | | 0 | 11/13/19 | | | (MAG-OX) 400 mg | mouth Daily. | | | 18 | | | tablet | | | | | | + + + +---------+ + + | metFORMIN | Take 500 mg by mouth | | 0 | | | | (GLUCOPHAGE) 500 mg | 2 times daily (with | | | | | | tablet | breakfast & | | | | | | | dinner). | | | | | + + + +---------+ + + | pregabalin | Take 150 mg by mouth | | 0 | | | | (LYRICA) 150 MG | 2 times daily. | | | | | | capsule | | | | | | + + + +---------+ + + | Respiratory | Portable oxygen | 1 each | 0 | 05/10/20 | | | Therapy Supplies | concentrator to | | | 19 | | | MISC | provide O2 at 1 l/m | | | | | | | continuous via nasal | | | | | | | cannula. Duration: | | | | | | | Lifetime Dx: COPD | | | | | | | J44.9 | | | | | + + + +---------+ + + | tiZANidine | Take 8 mg by mouth | | 0 | | | | (ZANAFLEX) 4 mg | nightly. | | | | | | tablet | | | | | | + + + +---------+ + + | torsemide | Take 20 mg by mouth | | 0 | 12/08/19 | | | (DEMADEX) 20 mg | Daily. With 5mg for | | | 18 | | | tablet | total of 25mg | | | | | + + + +---------+ + + | traZODone | Take 300 mg by mouth | | 0 | | | | (DESYREL) 100 mg | nightly. | | | | | | tablet | | | | | | + + + +---------+ + + | vortioxetine | Take 10 mg by mouth | | 0 | | | | (TRINTELLIX) 10 mg | every morning. | | | | | | tablet | | | | | | + + + +---------+ + + | ziprasidone | Take 80 mg by mouth | | 0 | | | | (GEODON) 80 MG | nightly. | | | | | | capsule | | | | | | + + + +---------+ + + | azaTHIOprine | Take 100 mg by mouth | | 0 | | | | (IMURAN) 50 mg | every evening. | | | | 9 | | tablet | | | | | | + + + +---------+ + + | busPIRone (BUSPAR) | Take 20 mg by mouth | | 0 | | | | 10 MG tablet | every evening. | | | | 9 | + + + +---------+ + + | ergocalciferol | Take 50,000 Units by | | 0 | | | | (VITAMIN D-2) 50,000 | mouth Once a week. | | | | 9 | | units capsule | | | | | | + + + +---------+ + + | levothyroxine | Take 100 mcg by | | 0 | | | | (SYNTHROID) 100 mcg | mouth every morning | | | | 9 | | tablet | (before breakfast). | | | | | | | Take with 300mcg for | | | | | | | total of 400mcg | | | | | + + [...] +---------+ + + | omeprazole | Take 1 capsule by | 90 | 3 | 09/21/19 | | | (PRILOSEC) 20 mg | mouth every morning | capsule | | 14 | 9 | | capsule | (before breakfast). | | | | | + + + +---------+ + + | roflumilast | Take 1 tablet by | 30 | 5 | 09/23/19 | | | (DALIRESP) 500 mcg | mouth Daily. | tablet | | 19 | 9 | | tabletIndications: | | | | | | | COPD, frequent | | | | | | | exacerbations (HCC) | | | | | | + + + +---------+ + + | sulfaSALAzine | Take 1,000 mg by | | 0 | 05/04/19 | | | (AZULFIDINE) 500 MG | mouth 2 times daily. | | | 17 | 9 | | EC tablet | | | | | | + + + +---------+ + + | torsemide | Take 5 mg by mouth | | 0 | | | | (DEMADEX) 5 mg | Daily. Take with | | | | 9 | | tablet | 20mg for total of | | | | | | | 25mg | | | | | + + + +---------+ + + | verapamil (CALAN | Take 2 tablets by | | 0 | 11/06/19 | | | SR) 240 mg SR tablet | mouth nightly. | | | 18 | 9 | + + + +---------+ + + | ziprasidone | Take 60 mg by mouth | | 0 | | | | (GEODON) 60 MG | Daily. With 80mg to | | | | 9 | | capsule | equal to 140mg. | | | | | + + [...] [place] | | | | | | [address] | | | | | | | | +--------+---------+ + + + | 07/26/ Office | Pulmonology | Navdeep Grande, | | | 2019 | Visit | | [address] | | | | | | [place] | | | | | | [address] | | | | | | | | +--------+---------+ + + + documented as of this encounter Procedures + +--------+ + + + | Procedure Name | Priori | Date/Time | Associated Diagnosis | Comments | | | ty | | | | + +--------+ + + + | SLEEP STUDY | Routin | 09/30/2018 | | Results for this | | DIAGNOSTIC ONLY NO | e | 10:38 AM | | procedure are in the | | PAP | | PDT | | results section. | + +--------+ + + + | SLEEP STUDY | Routin | 09/30/2018 | | Results for this | | DIAGNOSTIC ONLY NO | e | 10:38 AM | | procedure are in the | | PAP | | PDT | | results section. | + +--------+ + + + | POC BLOOD GASES | Routin | 09/22/2018 | | Results for this | | | e | 12:51 AM | | procedure are in the | | | | PDT | | results section. | + +--------+ + + + documented in this encounter Results Sleep study diagnostic only (no PAP) (09/30/2018 10:38 AM PDT) + + + | Narrative | Performed At | + + + | [facility] | | | Aaron Espino MD 09/30/2018 10:49 [facility] | | | [place] [address] | | | Polysomnogram Report on Kait Min performed on September 21, 2018. | | | Clinical Information: Kait Min is a 48 y.o. female who | | | underwent diagnostic nocturnal polysomnography on September 21, 2018 on | | | referral from Dr. Denis Grande because of persistent nocturnal oxygen | | | desaturation in a patient who in the past has had mild obstructive | | | sleep apnea and severe chronic lung disease.. Technical Information: | | | Please see technical data which is attached. The patient is on | | | oxygen. The current study is performed on oxygen 2 L/min. | | | Definitions (The AASM Manual for the Scoring of Sleep and Associated | | | Events, Version 2.5; 2018): Apnea: There is a drop in the peak signal | | | excursion by 90% or greater of pre-event baseline using an oronasal | | | thermal sensor (diagnostic study), PAP device flow (titration study), | | | or an alternative apnea sensor (diagnostic study); the duration of the | | | 90% or greater drop in sensor signal is 10 seconds or longer. | | | Obstructive Apnea: Event associated with continued or increased | | | inspiratory effort throughout the entire period of absent airflow. | | | Central Apnea: Event associated with absent inspiratory effort | | | throughout the entire period of absent airflow. Mixed Apnea: Event | | | associated with absent inspiratory effort in the initial portion of | | | the event followed by resumption of inspiratory effort during the | | | second portion of the event. Hypopnea: The peak signal excursions drop | | | by greater than or equal to 30% of pre-event baseline using a | | | recommended or alternative airflow sensor and the duration of the >= | | | 30% drop in signal excursion is greater than or equal to 10 seconds | | | and there is a greater than or equal to a 4% oxygen desaturation from | | | pre-event baseline. Respiratory Event Related Arousal: A sequence of | | | breaths lasting 10 seconds or longer characterized by increasing | | | respiratory effort or by flattening of the inspiratory portion of the | | | nasal pressure (diagnostic study) or PAP device flow (titration study) | | | waveform leading to arousal from sleep when the sequence of breaths | | | does not meet criteria for an apnea or hypopnea. Sleep Architecture: | | | Lights out was recorded at 1957 hundred hours on September 21, 2018 and | | | lights on was recorded at 0705 hundred hours on September 22, 2018. The | | | latency to sleep onset was short at 0 minutes. The patient slept for | | | 591.5 minutes out of 668 minutes of study time resulting an a sleep | | | efficiency that was normal at 88.5 %. The amount of N1 sleep was | | | normal at 0.3 % of the Total Sleep Time; the amount of N2 sleep was | | | normal at 48 % of the Total Sleep Time; the amount of N3 sleep was | | | 34.3 % of the Total Sleep Time; the amount of REM sleep was normal at | | | 17.3 % of the Total Sleep Time and the latency to REM sleep was normal | | | at 111.5 minutes. No parasomnias were noted. Sleep in the following | | | positions was recorded: left lateral decubitus 94.6%, right lateral | | | decubitus 5.2%, supine 0.2%, prone 0%. Sleep was minimally fragmented; | | | the Arousal Index was 11.4. The patient reported this to be a usual | | | night's sleep. Cardiopulmonary Monitoring: The heart rate averaged in | | | the 70s beats per minute. Mild to moderate rate variability was | | | noted. The rhythm was sinus. In the course of the evening there were 4 | | | obstructive apneas, 0 mixed apneas, 0 central apneas, 22 hypopneas, | | | and 12 Respiratory Effort Related Arousals (RERA's). The Respiratory | | | Disturbance Index (RDI) was normal at 3.9; the Apnea-Hypopnea Index | | | (AHI) was normal at 2.6; the Apnea Index (AI) was 0.4. The respiratory | | | events were mildly sleep stage dependent. The events were more | | | frequently seen in REM sleep (REM related AHI 5.9, non-REM related AHI | | | 2.0). The respiratory events occasioned minimal sleep fragmentation; | | | the Respiratory Arousal Index was 2.2. The kimmy oxygen saturation | | | was 81% and the patient spent 105.1 minutes with an oxygen saturation | | | of less than or equal to 88%. ETCO2 was elevated (50 to 54 mmHg for | | | 108 minutes, 55 to 59 mmHg for 8 minutes). Arterial blood gases done | | | at 0051 hours demonstrated a PO2 of 82, pH 7.316, PCO2 56.8. Snoring | | | was noted throughout the evening. Limb Movement Monitoring: There were | | | 82 Periodic Limb Movements (PLMS Index of 8.3) of which 1 were | | | associated with arousals; the PLMS Arousal Index was normal at 0.1. | | | Miscellaneous: The patient did request at 3 AM and requested to be | | | allowed to go outside to smoke a cigarette. She requested a second | | | smoking break at 5 AM. Interpretation: This polysomnogram is normal | | | secondary to: Significant oxygen desaturation is noted in spite of | | | oxygen 2 L/min. Carbon dioxide retention is also documented with | | | end-tidal CO2, transcutaneous CO2, and arterial blood gases during | | | sleep.Significant (AHI greater than 5) sleep apnea does not appear to | | | be present.Nocturnal oxygen desaturation and CO2 elevation is | | | suspected primarily secondary to chronic obstructive pulmonary | | | disease. Suggestions:1. The principles of sleep hygiene should be | | | reviewed with the patient.2. Oxygen therapy should be increased to | | | obtain nocturnal pulse oximetry of greater than 88%.3. Pulmonary | | | function studies as well as daytime arterial blood gases on the | | | patient's usual FiO2 be performed to see if she qualifies (Medicare) | | | for bilevel positive airway pressure therapy to assist with her COPD. | | | Neno Walker Jr., MD, FAASMMedical DirectorAtrium Health Carolinas Rehabilitation Charlottehailey Doll | | | [facility] | | | Alma Cooleyinical Principal Military Analyst of MedicineMo[facility] Regional Hospital | | | [place], [place] | | |The kimmy oxygen saturation was 81% and the patient spent 105.1 | | |minutes with an oxygen saturation of less than or equal to 88%. | | | | | |ETCO2 was elevated (50 to 54 mmHg for 108 minutes, 55 to 59 mmHg | | |for 8 minutes). | | | | | |Arterial blood gases done at 0051 hours demonstrated a PO2 of 82, | | |pH 7.316, PCO2 56.8. | | | | | |Snoring was noted throughout the evening. | | | | | |Limb Movement Monitoring: There were 82 Periodic Limb Movements | | |(PLMS Index of 8.3) of which 1 were associated with arousals; the | | |PLMS Arousal Index was normal at 0.1. | | | | | |Miscellaneous: The patient did request at 3 AM and requested to | | |be allowed to go outside to smoke a cigarette. She requested a | | |second smoking break at 5 AM. | | | | | |Interpretation: This polysomnogram is normal secondary to: | | | | | |Significant oxygen desaturation is noted in spite of oxygen 2 | | |L/min. Carbon dioxide retention is also documented with | | |end-tidal CO2, transcutaneous CO2, and arterial blood gases | | |during sleep. | | |Significant (AHI greater than 5) sleep apnea does not appear to | | |be present. | | |Nocturnal oxygen desaturation and CO2 elevation is suspected | | |primarily secondary to chronic obstructive pulmonary disease. | | | | | |Suggestions: | | |1. The principles of sleep hygiene should be reviewed with the | | |patient. | | |2. Oxygen therapy should be increased to obtain nocturnal pulse | | |oximetry of greater than 88%. | | |3. Pulmonary function studies as well as daytime arterial blood | | |gases on the patient's usual FiO2 be performed to see if she | | |qualifies (Medicare) for bilevel positive airway pressure therapy | | |to assist with her COPD. | | | | | |Neno Walker Jr., MD, FAASM | | |Naturopath | | |Melly Doll [facility] | | |[facility] | | |[place], [place] | | |Clinical insurance examining clerk | | |[facility] | | |[place], [place] | | + + + + + | Procedure Note | + + | Neno Walker Jr., MD - 09/30/2018 10:38 AM PDT [facility] | | Disorders [place], [place] [id number] Report on | | Kait Min performed on September 21, 2018.Clinical Information: Kait Min is a | | 48 y.o. female who underwent diagnostic nocturnal polysomnography on September 21, 2018 on | | referral from Dr. Denis Grande because of persistent nocturnal oxygen desaturation in a | | patient who in the past has had mild obstructive sleep apnea and severe chronic lung | | disease..Technical Information: Please see technical data which is attached. The | | patient is on oxygen. The current study is performed on oxygen 2 L/min.Definitions (The | | AASM Manual for the Scoring of Sleep and Associated Events, Version 2.5; 2018): Apnea: | | There is a drop in the peak signal excursion by 90% or greater of pre-event baseline | | using an oronasal thermal sensor (diagnostic study), PAP device flow (titration study), | | or an alternative apnea sensor (diagnostic study); the duration of the 90% or greater | | drop in sensor signal is 10 seconds or longer. Obstructive Apnea: Event associated with | | continued or increased inspiratory effort throughout the entire period of absent | | airflow. Central Apnea: Event associated with absent inspiratory effort throughout the | | entire period of absent airflow. Mixed Apnea: Event associated with absent inspiratory | | effort in the initial portion of the event followed by resumption of inspiratory effort | | during the second portion of the event. Hypopnea: The peak signal excursions drop by | | greater than or equal to 30% of pre-event baseline using a recommended or alternative | | airflow sensor and the duration of the >= 30% drop in signal excursion is greater than | | or equal to 10 seconds and there is a greater than or equal to a 4% oxygen desaturation | | from pre-event baseline. Respiratory Event Related Arousal: A sequence of breaths | | lasting 10 seconds or longer characterized by increasing respiratory effort or by | | flattening of the inspiratory portion of the nasal pressure (diagnostic study) or PAP | | device flow (titration study) waveform leading to arousal from sleep when the sequence | | of breaths does not meet criteria for an apnea or hypopnea.Sleep Architecture: Lights | | out was recorded at 1957 hundred hours on September 21, 2018 and lights on was recorded at | | 0705 hundred hours on September 22, 2018. The latency to sleep onset was short at 0 minutes. | | The patient slept for 591.5 minutes out of 668 minutes of study time resulting an a | | sleep efficiency that was normal at 88.5 %. The amount of N1 sleep was normal at 0.3 % | | of the Total Sleep Time; the amount of N2 sleep was normal at 48 % of the Total Sleep | | Time; the amount of N3 sleep was 34.3 % of the Total Sleep Time; the amount of REM sleep | | was normal at 17.3 % of the Total Sleep Time and the latency to REM sleep was normal at | | 111.5 minutes. No parasomnias were noted.Sleep in the following positions was | | recorded: left lateral decubitus 94.6%, right lateral decubitus 5.2%, supine 0.2%, prone | | 0%.Sleep was minimally fragmented; the Arousal Index was 11.4.The patient reported this | | to be a usual night's sleep.Cardiopulmonary Monitoring: The heart rate averaged in the | | 70s beats per minute. Mild to moderate rate variability was noted. The rhythm was | | sinus.In the course of the evening there were 4 obstructive apneas, 0 mixed apneas, 0 | | central apneas, 22 hypopneas, and 12 Respiratory Effort Related Arousals (RERA's). The | | Respiratory Disturbance Index (RDI) was normal at 3.9; the Apnea-Hypopnea Index (AHI) | | was normal at 2.6; the Apnea Index (AI) was 0.4. The respiratory events were mildly | | sleep stage dependent. The events were more frequently seen in REM sleep (REM related | | AHI 5.9, non-REM related AHI 2.0). The respiratory events occasioned minimal sleep | | fragmentation; the Respiratory Arousal Index was 2.2.The kimmy oxygen saturation was 81% | | and the patient spent 105.1 minutes with an oxygen saturation of less than or equal to | | 88%.ETCO2 was elevated (50 to 54 mmHg for 108 minutes, 55 to 59 mmHg for 8 | | minutes).Arterial blood gases done at 0051 hours demonstrated a PO2 of 82, pH 7.316, | | PCO2 56.8.Snoring was noted throughout the evening.Limb Movement Monitoring: There were | | 82 Periodic Limb Movements (PLMS Index of 8.3) of which 1 were associated with arousals; | | the PLMS Arousal Index was normal at 0.1.Miscellaneous: The patient did request at 3 AM | | and requested to be allowed to go outside to smoke a cigarette. She requested a second | | smoking break at 5 AM.Interpretation: This polysomnogram is normal secondary | | to:Significant oxygen desaturation is noted in spite of oxygen 2 L/min. Carbon dioxide | | retention is also documented with end-tidal CO2, transcutaneous CO2, and arterial blood | | gases during sleep.Significant (AHI greater than 5) sleep apnea does not appear to be | | present.Nocturnal oxygen desaturation and CO2 elevation is suspected primarily secondary | | to chronic obstructive pulmonary disease.Suggestions:1. The principles of sleep hygiene | | should be reviewed with the patient.2. Oxygen therapy should be increased to obtain | | nocturnal pulse oximetry of greater than 88%.3. Pulmonary function studies as well as | | daytime arterial blood gases on the patient's usual FiO2 be performed to see if she | | qualifies (Medicare) for bilevel positive airway pressure therapy to assist with her | | COPD.Neno Walker Jr., MD, FAASMMedical DirectorJenelleariela Doll [facility] Sleep | | Disorders CenterProvidence St. Luke's University Health Networkinical Associate | | Professor of MedicineSav[place], [place] | |Naturopath | |Melly [facility] | |[facility] | |[place], [place] | |Clinical insurance examining clerk | |[facility] | |[place], [place] | + + POC Blood Gases (09/22/2018 12:51 AM PDT) + + + + + + | Component | Value | Ref Range | Performed | Pathologist | | | | | At | Signature | + + + + + + | Specimen | Artery | | [facility] | | | Source | | | [facility] | | | | | | [facility] | | | | | | CENTER - | | | | | | LABORATORY | | + + + + + + | pH, POC | 7.316 | 7.3 - 7.45 | [facility] | | | | | | [facility] | | | | | | MEDICAL | | | | | | CENTER - | | | | | | LABORATORY | | + + + + + + | HCO3, POC | 29.0 (H) | 21.0 - 28.0 | [facility] | | | | | mmol/L | [facility] | | | | | | MEDICAL | | | | | | CENTER - | | | | | | LABORATORY | | + + + + + + | TCO2, POC | 30.8 (H) | 22.0 - 29.0 | [facility] | | | | | mmol/L | [facility] | | | | | | MEDICAL | | | | | | CENTER - | | | | | | LABORATORY | | + + + + + + | Base | 2.0 | -2.0 - 3.0 | [facility] | | | Excess, POC | | mmol/L | [facility] | | | | | | MEDICAL | | | | | | CENTER - | | | | | | LABORATORY | | + + + + + + | Base | 2.8 | -2.0 - 3.0 | [facility] | | | Excess, | | mmol/L | [facility] | | | Extracellul | | | MEDICAL | | | ar fluid, | | | CENTER - | | | POC | | | LABORATORY | | + + + + + + | O2 Sat, POC | 95 | 90 - 100 % | [facility] | | | | | | [facility] | | | | | | MEDICAL | | | | | | CENTER - | | | | | | LABORATORY | | + + + + + + | PCO2, POC | 56.8 (H) | 35 - 45 mmHg | [facility] | | | | | | [facility] | | | | | | MEDICAL | | | | | | CENTER - | | | | | | LABORATORY | | + + + + + + | pO2, POC | 82 | 60 - 750 mmHg | [facility] | | | | | | [facility] | | | | | | MEDICAL | | | | | | CENTER - | | | | | | LABORATORY | | + + + + + + + + | Specimen | + + | Blood | + + + + + + + | Performing | Address | City/State/Zipcode | Phone Number | | Organization | | | | + + + + + | [facility] 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
--- OUTSIDE RECORDS SUMMARY | ~2019-04-18 | XMS | Encounter Summary ---
Demographics + + + | Address | [address] | | | [place] [address] | + + + | Home Phone | | + + + | Preferred Language | Unknown | + + + | Marital Status | Single | + + + | Buddhism Affiliation | CHR | + + + | Race | White | + + + | Ethnic Group | Not or | + + + Author + + + | Author | [facility] | + + + | Organization | [facility] | + + + | Address | Unknown | + + + | Phone | Unavailable | + + + Support + + + + + | Name | Relationship | Address | Phone | + + + + + | Scot Johnson | ECON | [address] | | | | | [place] [address] | | + + + + + Care Team Providers + +------+ + | Care Rn Gynecology Name | Role | Phone | + [...] Clinic | | | | | | [facility], | | | | | | [place] [address] | | | | | | [phone] | | | +--------+ + + + [...] | + + + + + | [facility] | [address] | [place] [address] | | | LABORATORY | | | | + + + + + documented in this encounter Visit Diagnoses Not on filedocumented in this encounter"
--- OUTSIDE RECORDS SUMMARY | ~2019-04-18 | XMS | Encounter Summary ---
Demographics + + + | Address | [address] | | | [place] [address] | + + + | Home Phone | | + + + | Preferred Language | Unknown | + + + | Marital Status | Single | + + + | Baptism Affiliation | Unknown | + + + | Race | Unknown | + + + | Ethnic Group | Unknown | + + + Author + + + | Author | [facility] | | | and [place] | + + + | Organization | [facility] | | [...] | | | | | [place] [address] | | + + + + + | Robson Min | ECON | Unknown | | + + + + + | Isabella Whitehead | ECON | Unknown | | + + + + + Care Team Providers + +------+ + | Care Materials Inspector Name | Role | Phone | + [...] | | | | MANAGEMENT [address] | Loss Prevention And Safety Manager-Clinical | | | | | [place] | | | | | | [place] | | | | | | [address] | | | | | | [phone] | | | +--------+ + + + [...] [place] | | | | | | [address] | | | | | | | | +--------+---------+ + + + | 07/26/ | Office | Pulmonology | Navdeep Grande, | | | 2019 | Visit | | [address] | | | | | | [place] | | | | | | [address] | | | | | | | | +--------+---------+ + + + documented as of this encounter Visit Diagnoses Not on filedocumented in this encounter"
--- OUTSIDE RECORDS SUMMARY | ~2019-04-18 | XMS | Encounter Summary ---
Demographics + + + | Address | [address] | | | [place] [address] | + + + | Home Phone [...] | | | | | [place] [address] | | + + + + + Care Team Providers + +------+ + | Care Glassware Maker Name | Role | Phone | + +------+ + PCP | Unavailable | + +------+ + Encounter Details +--------+ + + + + | Date | Type | Department | Care Team | Description | +--------+ + + + + | 10/23/ | Respiratory | | Other, Faculty | | | 2006 | Therapy | | [phone] | | +--------+ + + + + [...] + | MEDICAL GAS/HUMIDITY | Routin | 10/23/2005 | | Results for this | | | e | 6:27 PM | | procedure are in the | | | | PDT | | results section. | + +--------+ + + + documented in this encounter Results MEDICAL GAS/HUMIDITY (10/23/2005 6:27 PM PDT) + + + + + + | Component | Value | Ref Range | Performed | Pathologist | | | | | At | Signature | + + + + + + | [facility] | OXYGEN OR HUMIDITY ON | | | | | GAS/HUMIDIT | STANDBY. Yo Beckford, VENDING ENTERPRISES SUPERVISOR | | | | | Y |Yo Beckford, VENDING ENTERPRISES SUPERVISOR | | | | + + + [...] [facility] | [address] | [place], [place] | | | DIAGNOSTICS - | [place] | [address] | | | PULMONARY FUNCTION | | | | + + + + + documented in this encounter Visit Diagnoses Not on filedocumented in this encounter"
--- OUTSIDE RECORDS SUMMARY | ~2019-04-18 | XMS | Encounter Summary ---
Demographics + + + | Address | [address] | | | [place] [address] | + + + | Home Phone | | + + + | Preferred Language | Unknown | + + + | Marital Status | Single | + + + | Sikhism Affiliation | CHR | + + + [...] | | | | | [place] [address] | | + + + + + Care Team Providers + +------+ + | Care District Plant Engineer Name | Role | Phone | + +------+ + PCP | Unavailable | + +------+ + Encounter Details +--------+ + + + + | Date | Type | Department | Care Team | Description | +--------+ + + + + | 10/29/ | Respiratory | | Other, Faculty | | | 2006 | Therapy | | [phone] | | +--------+ + + + + [...] | | | | | | Margi, REAL ESTATE DIRECTOR | | | | + + + [...] [facility] | [address] | [place] | | | DIAGNOSTICS - | [place] | [address] | | | PULMONARY FUNCTION | | | | + + + + + documented in this encounter Visit Diagnoses Not on filedocumented in this encounter"
--- OUTSIDE RECORDS SUMMARY | ~2019-04-18 | XMS | Encounter Summary ---
Demographics + + + | Address | [address] | | | [place] [address] | + + + | Home Phone | | + + + | Preferred Language | Unknown | + + + | Marital Status | Single | + + + | Buddhism Affiliation | Unknown | + + + | Race | Unknown | + + + | Ethnic Group | Unknown | + + + Author + + + | Author | [facility] | | | and [place] | + + + | Organization | [facility] | | [...] | | | | | [place] [address] | | + + + + + | Robson Min | ECON | Unknown | | + + + + + | Isabella Whitehead | ECON | Unknown | | + + + + + Care Team Providers + +------+ + | Care Night Stocker Name | Role | Phone | + +------+ + PCP | Unavailable | + +------+ + Encounter Details +--------+ + + + + | Date | Type | Department | Care Team | Description | +--------+ + + + + | 12/13/ | [facility] | [facility] | Navdeep Grande, | | | 2011 | Encounter | MED CTR XRAY [address] | MD [address] | | | | | [place] | [place] | | | | | [place] [address] | [address] | | | | | [phone] | | | +--------+ + + + [...] | 0 | 10/08/19 | | | [id number] | every 6 hours as | | [...] [place] | | | | | | [address] | | | | | | | | +--------+---------+ + + + | 07/26/ | Office | Pulmonology | Navdeep Grande, | | | 2019 | Visit | | [address] | | | | | | [place] | | | | | | [address] | | | | | | | [...] Performed At | + + + | [facility] Diagnostic Imaging Department | [facility] | | [address] | [facility] | | NONCONTRAST CT CHEST | DIAG IMG | | CLINICAL HISTORY: FOLLOW UP CAVITARY LESIONS RIGHT LUNG. | | | TECHNIQUE: Axial images are obtained from the thoracic inlet through | | | upper abdomen without the use of contrast. COMPARISON: August | | | 2011 from [place], [place]. October 2005 from [facility] | | | [facility]. FINDINGS: Thick-walled cavitary lesions | | [...] | | 16:53 Transcribed Date/Time: 12/14/2011 17:08 Mink Rancher: | | | <Electronically Signed by Ace Avery MD> 12/14/11 | | | 1754 | | + + + + + | Procedure Note | + + | Demario, Rad Conversion - 05/26/2013 5:55 PM [facility] | | Diagnostic Imaging Department | | [address] | | | | | | | | NONCONTRAST CT CHEST | | | | CLINICAL HISTORY: FOLLOW UP CAVITARY LESIONS RIGHT LUNG. | | | | TECHNIQUE: Axial images are obtained from the thoracic inlet through upper | | abdomen without the use of contrast. | | | | COMPARISON: August 2011 from [place], [place]. October 2005 from [facility] | [facility]. | | | | FINDINGS: Thick-walled cavitary [...] | Transcribed Date/Time: 12/14/2011 17:08 | | Mink Rancher: | | <Electronically Signed by Ace Avery MD> 12/14/11 1754 | + + + +---------+ + + | Performing | Address | City/State/Zipcode | Phone Number | | Organization | | | | + +---------+ + + | [place] | | | | | [facility] | | | | + +---------+ + + documented in this encounter Visit Diagnoses Not on filedocumented in this encounter"
--- OUTSIDE RECORDS SUMMARY | ~2019-04-18 | XMS | Encounter Summary ---
Demographics + + + | Address | [address] | | | [place] [address] | + + + | Home Phone | | + + + | Preferred Language | Unknown | + + + | Marital Status | Single | + + + | Jain Affiliation | CHR | + + + [...] | | | | | [place] [address] | | + + + + + Care Team Providers + +------+ + | Care Heater Furnace Name | Role | Phone | + +------+ + PCP | Unavailable | + +------+ + Encounter Details +--------+ + + + + | Date | Type | Department | Care Team | Description | +--------+ + + + + | 09/22/ | Transcribed | | Dictation, Other | Transcribed | | 2000 | | | | | +--------+ + [...] as of this encounter Progress Notes Interface, Ambulatory Care Coordinator In - 03/06/2006 5:10 AM [facility] [place] [facility] [place], [place] [address] or September 23, 1999 Renan Bright MD [address] [place] [address] RE: CARLINE MIN MR #: [id number] Dear Dr. Bright: I saw your patient, Carline Min, in Rheumatology Clinic today for followup of her rheumatoid arthritis. Please see my note dated May 16, 1999, for full details of her past medical history. At the last appointment, we increased her methotrexate stepwise to 15 mg per week and began a prednisone taper. She says that her joints overall are doing a little bit better, and she is not needing as much Tylenol; however, she still does have significant pain and swelling in her fingers, shoulders, and now her neck. She also complains of morning stiffness in the range of 30-45 minutes which does not sound significantly different from previous. She has tolerated the prednisone taper, however, without a flare in her symptoms. She has a new complaint. Two months ago, she began having bloody diarrhea and associated cramping abdominal pain. She says she is planning to have a colonoscopy soon and is simply waiting for insurance approval. Current medicines includes methotrexate 15 mg per week, prednisone 2.5 mg q.d., folic acid 1 mg q.d., Celebrex 200 b.i.d., control pills, vitamins, Synthroid 300 mcg q.d., Flonase. PHYSICAL EXAM: Blood pressure 130/74. Pulse 112. Weight 297.2 pounds (up 8 pounds from previous). In general, she is in better spirits. Musculoskeletal exam still shows active synovitis in multiple joints, especially metacarpal phalangeal joints 2 and 3, greater than 4 and 5. She has synovial cyst at the right dorsal wrist and widespread rheumatoid nodules as before including olecranon and Achilles. There are no lab data for review. ASSESSMENT: A 29-year-old female with active rheumatoid arthritis despite a moderate dose of methotrexate. The options at this point are to add additional agents including sulfasalazine or Plaquenil. The tumor necrosis factor inhibiting drugs also remain an option, but she will need to have failed 2 or more disease-modifying agents before her insurance would cover these. She tells me that she has been having difficulty with insurance coverage for her medications, and that she may be changing carriers, but because of these problems, she would be an ideal candidate for one of the rheumatoid arthritis studies that we are enrolling for here. Specifically, she would qualify for the interleukin-1receptor antagonist study. We explained the details of this study to her and she is interested in hearing more and will be interviewed by our hygiene coordinator. We will obtain some x-rays and labs to further screen her for candidacy. PLAN 1. The patient to meet with hygiene coordinator today regarding IL-1 RA study. 2. Labs today to include CBC, liver function tests, C-reactive protein and erythrocyte sedimentation rate. 3. X-rays of the hands today. 4. 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 I would appreciate it if those results could be faxed to me at this clinic: [phone]. 5. She will be made a follow-up appointment either with me or as part of the above-mentioned study. Again, thank you for allowing me to participate in this Ms. Min's care and please call if you wish to discuss her case further. Sincerely, Ameya Steen M.D. Rheumatology Fellow [facility] / PHIL [id number] / [id number] / [id number] / [id number] signed by Interface, Ambulatory Care Coordinator In at 03/06/2006 5:10 AM PSTdocume nted in this encounter Plan of Treatment Not on filedocumented as of this encounter Visit Diagnoses Not on filedocumented in this encounter"
--- OUTSIDE RECORDS SUMMARY | ~2019-04-18 | XMS | Encounter Summary ---
Demographics + + + | Address | [address] | | | [place] [address] | + + + | Home Phone [...] + + + | Author | [facility] | | | and [place] | + + + | Organization | [facility] | | | [...] | | | | | [place] [address] | | + + + + + | Robson Min | ECON | Unknown | | + + + + + | Isabella Whitehead | ECON | Unknown | | + + + + + Care Team Providers + +------+ + | Care Aerospace Quality Engineer Name | Role | Phone | + +------+ + | Bart Ba DO | PCP | | + +------+ + Reason for Visit + + + | Reason | Comments | + + + | Medication Refill | | + + + Encounter Details +--------+--------+ + + + | Date | Type | Department | Care Team | Description | +--------+--------+ + + + | 10/19/ | Refill | [facility] | Navdeep [place], | Medication Refill | | 2017 | | PULMONARY [address] | MD [address] | | | | | [place], | [place] | | | | | [place] [address] | [address] | | | | | [phone] | | | +--------+--------+ + + + Social History + + [...] [place] | | | | | | [address] | | | | | | | | +--------+---------+ + + + | 07/26/ | Office | Pulmonology | Navdeep Grande, | | | 2019 | Visit | | [address] | | | | | | [place] | | | | | | [address] | | | | | | | | +--------+---------+ + + + documented as of this encounter Visit Diagnoses Not on filedocumented in this encounter"
--- OUTSIDE RECORDS SUMMARY | ~2019-04-18 | XMS | Encounter Summary ---
Demographics + + + | Address | [address] | | | [place] [address] | + + + | Home Phone | | + + + | Preferred Language | Unknown | + + + | Marital Status | Single | + + + | Amish Affiliation | CHR | + + + [...] | | | | | [place] [address] | | + + + + + Care Team Providers + +------+ + | Care Rn Ccu Name | Role | Phone | + +------+ + PCP | Unavailable | + +------+ + Encounter Details +--------+ + + + + | Date | Type | Department | Care Team | Description | +--------+ + + + + | 12/07/ | Discharge | | Summary, Discharge | D/C Summary ODDS | | 2003 | Summary-Tra | | | | | [...] as of this encounter Discharge Summaries Interface, Student Finance Specialist In - 10/10/2005 1:[address] [address] [facility] MEDICAL SUMMARY OF HOSPITALIZATION Med Rec No: [id number] Admission Date: 12/02/2002 Name: Kait Min Discharge Date: 12/07/2002 ATTENDING PHYSICIAN: Not dictated. PRINCIPAL FINAL DIAGNOSIS: Empyema. ADDITIONAL DIAGNOSES: 1. Rheumatoid arthritis. 2. Diabetes mellitus type 2. 3. Hypothyroidism. PRINCIPAL PROCEDURE: Intravenous (IV) antibiotics and intubation. ADDITIONAL PROCEDURES: 1. Computed tomography (CT) of the chest. 2. Chest x-ray. 3. Pulmonary consult. 4. Intensive Care Unit stay. 5. Intubation and mechanical ventilation. REASON FOR ADMISSION: Significant findings, etcetera. This is a 32-year-old woman who was admitted on December 02, 2002, transferred from an outside hospital on the [facility]. She initially presented to the emergency department on November 27, 2002, for fatigue, cough, and fever. Chest x-ray at that time, demonstrated a right pleural effusion, and a tap demonstrated exudative pus, which was ampicillin sensitive, H-flu coagulates negative by culture. The patient was started on ceftriaxone. The fluid reaccumulated, a chest tube was placed, but the patient continued to decline and required intubation on November 29, 2002. She continued to have increasing opacities on chest x-ray, initially it was the right side greater than the left and thought to be associated with this significant empyema. However, she started to develop some suspicious opacity on December 02, 2002, in the left side of her chest and it was expected that she was entering into adult respiratory distress syndrome (ARDS). She was managed in the Medical Intensive Care Unit with ceftriaxone, tube feeds, and intubation. She did improve clinically, and was extubated on December 02, 2002, without any difficulty. HOSPITAL COURSE: 1. Empyema, after transfer out of the unit, the patient was checked with daily PA and lateral chest x-rays to monitor this disease. Complete blood count with differential was also obtained. Although the improved clinically with decreased shortness of breath and decreased fluid collection by chest x-ray on each day after she was admitted to the floor from the unit. She did have slightly increased leukocytosis and slightly increased platelets by discharge, increasing from 11.4 to 12.6 for white blood cell count, and 477,000 to 490,000 for platelets. Because of this concern of her continued empyema with slightly increasing leukocytosis and increased platelets, we did order a chest computed tomography (CT) scan on the day of discharge, which was not changed significantly from her initial CT scan films from admission. Given that at least the disease process had not worsened, and that the patient felt clinically better, and was able to achieve better aeration, and exercise tolerance and was no longer in any kind of respiratory distress, and her cough was improved, we decided it was safe to send her home with close follow-up. She will need daily p.o. Cipro times two weeks. 2. Diabetes mellitus, the patient did had hypothyroid and continued replacement. She will need continued follow on these. Discharge was arranged, the patient will follow-up with Bart Elmore M.D., , is his office number, please obtain his fax number and fax this discharge summary to his office. CONDITION ON DISCHARGE: Condition on discharge is good. DISPOSITION: To home. DISCHARGE MEDICATIONS: 1. Cipro 500 mg p.o. b.i.d. times 14 days. 2. Metformin 500 mg p.o. every morning and 750 mg p.o. every night. 3. Synthroid 300 mcg p.o. everyday. 4. Lxlnz-Abr-Opekpa one tablet p.o. everyday. 5. Vioxx 25 mg p.o. everyday. 6. Cytomel 25 mcg p.o. everyday. 7. Glucotrol 5 mg p.o. b.i.d. DISCHARGE INSTRUCTIONS: DIET: Diabetic diet. ACTIVITY: Normal. FOLLOW-UP CARE: Follow-up with Bart Elmore M.D., . Return to her clinic in one week. The patient will also need a rheumatology follow-up. I will call the Rheumatology Clinic and ask them to call the patient and set up follow-up. Susan Christianson M.D. AR:[id number] FAX: BART ELMORE MD OFFICE NUMBER [phone] signed by Interface, Student Finance Specialist In at 10/10/2005 1:11 AM PDTdoc umented in this encounter Plan of Treatment Not on filedocumented as of this encounter Visit Diagnoses Not on filedocumented in this encounter"
--- OUTSIDE RECORDS SUMMARY | ~2019-04-18 | XMS | Encounter Summary ---
Demographics + + + | Address | [address] | | | [place] [address] | + + + | Home Phone | | + + + | Preferred Language | Unknown | + + + | Marital Status | Single | + + + | Christianity Affiliation | Unknown | + + + | Race | Unknown | + + + | Ethnic Group | Unknown | + + + Author + + + | Author | [facility] | | | and [place] | + + + | Organization | [facility] | | | [...] | | | | | [place] [address] | | + + + + + | Robson Min | ECON | Unknown | | + + + + + | Isabella Whitehead | ECON | Unknown | | + + + + + Care Team Providers + +------+ + | Care Director Of Real Estate Name | Role | Phone | + +------+ + | Bart Ba DO | PCP | | + +------+ + Reason for Visit + + + | Reason | Comments | + + + | Follow-up | | + + + Evaluate & Treat (Routine) +--------+--------+ + + + + | Status | Reason | Specialty | Diagnoses / | Referred By | Referred To | | | | | Procedures | Contact | Contact | +--------+--------+ + + + + | Closed | | Pulmonology | Diagnoses | Mejia, | Harjinder, | | | | | | Bart Bell DO | MD Navdeep | | | | | Bronchiectas | [address] | [address] | | | | | is without | [address] | [place], | | | | | acute | [place] | [place] [address] | | | | | exacerbation | 3-106 | Phone: | | | | | ([facility]) | [place] | [phone] | | | | | Procedures | [id number] | Fax: | | | | | [place] OFFICE | Phone: | [phone] | | | | | OUTPATIENT | [phone] | | | | | | NEW 45 | Fax: | | | | | | MINUTES | [phone] | | +--------+--------+ + + + + Encounter Details +--------+---------+ + + + | Date | Type | Department | Care Team | Description | +--------+---------+ + + + | 10/18/ | Office | [facility] [place] | Navdeep Grande, | Abnormal chest x-ray | | 2012 | Visit | PULMONARY [address] | MD [address] | (Primary Dx); | | | | [place], | [place], [place] | Chronic bronchitis | | | | [place] [address] | [address] | ([facility]) | | | | [phone] | | | +--------+---------+ + + + [...] + + + | Blood Pressure | 128/70 | 10/18/2012 10:33 AM | | | | | PDT | | + + + + + | Pulse | 83 | 10/18/2012 10:33 AM | | | | | PDT | | + + + + + | Temperature | - | - | | + + + + + | Respiratory Rate | - | - | | + + + + + | Oxygen Saturation | 94% | 10/18/2012 10:33 AM | | | | | PDT | | + + + + + | Inhaled Oxygen | - | - | | | Concentration | | | | + + + + + | Weight | 93.9 kg (207 lb) | 10/18/2012 10:33 AM | | | | | PDT | | + + + + + | Height | 167.6 cm (5' 6") | 10/18/2012 10:33 AM | | | | | PDT | | + + + + + | Body Mass Index | 33.41 | 10/18/2012 10:33 AM | | | | | PDT | | + + + + + documented in this encounter Patient Instructions Patient Instructions Navdeep Grande MD - 10/18/2012 10:49 AM PDTContinue to monitor cou gh and sputum. Call if changes occurs.Electronically signed by Navdeep Grande MD at 05/2012 10:51 AM PDT documented in this encounter Progress Notes Navdeep Grande MD - 10/18/2012 10:38 AM PDTFormatting of this note might be different f rom the original. Pulmonary Follow Up 10/18/2012 HPI Kait Min is a 42 y.o. female patient of Bart Ba here today for follow up of a bnormal chest xray and cough. It has been 6 months since our last clinic appointment. At their last visit, we planned fo llow with xray in 6 months. Since the last visit she feels like their symptoms are stable. They have have not had any acute chest illnesses. They are currently on a regimen of ventol in prn. Uses 1-2 times per month. They do feel like this medication regimen is working for them. Currently they are able to walk 4-5 blocks at their own pace on level ground. They are exer cising regularly. Walking one mile per day. They are not enrolled in cardiac/pulmonary rehab ilitation or other physical therapy. She does cough chronically, and does produce mucous. The mucous is white in color. They hav e not had hemoptysis. She has not been evaluated for nocturnal oxygen and does not use it. She does not had symptoms of heartburn or reflux. They have not had symptoms of nasal conge stion, runny nose or post nasal drip. Ms. Min is smoking slightly less than one pack of cigarettes a day. This is down from 1- 1/2 packs per day at the time of our last clinic appointment. There is no history chest catalina n, fevers, chills, weight loss or night sweats. Past Medical History Past Medical History Diagnosis Date Wrist pain Diabetes mellitus, type 2 Vitamin d deficiency Hypercholesterolemia Hypothyroidism Panic anxiety syndrome IBS (irritable bowel syndrome) Restless leg syndrome Urinary hesitancy Lumbago Nocturia Pyoderma gangreosum-LE Bipolar 1 disorder Hypertension Lymphedema Nausea and vomiting Reflux esophagitis GI bleeding Empyema lung 2006 right Knee pain CHRONIC TENSION HEADACHE Classical migraine without mention of intractable migraine Abnormal chest CT Most likely postoperative decortication changes Allergies: Allergies Allergen Reactions Azithromycin Lamictal Medications: Current outpatient prescriptions:albuterol (VENTOLIN HFA) 90 mcg/puff inhaler, Inhale 2 puf fs into the lungs every 4 hours as needed., Disp: , Rfl: ; azaTHIOprine (AZASAN) 75 MG TABS , Take 50 mg by mouth 4 times daily., Disp: , Rfl: ; tvszekqqpi-mdafmqw-gktmbvby (BUTALBITA L COMPOUND/ASA) per tablet, One tablet by mouth every 6 hours as needed for migraine, Disp: , Rfl: ergocalciferol (VITAMIN D-2) 50,000 units capsule, Take 50,000 Units by mouth Daily., Disp: , Rfl: ; gabapentin (NEURONTIN) 600 MG tablet, Take 600 mg by mouth 3 times daily., Disp: , Rfl: ; HYDROcodone-acetaminophen (NORCO) 7.5-325 mg per tablet, Take 7.5-325 mg by mouth every 4 hours., Disp: , Rfl: ; hyoscyamine (LEVSIN) 0.125 MG tablet, Place 0.125 mg under t he tongue 4 times daily as needed., Disp: , Rfl: Insulin Aspart (NOVOLOG FLEXPEN SC), SOLN, Disp: , Rfl: ; Insulin Glargine (LANTUS SC), SO LN - 50 units as needed, Disp: , Rfl: ; levothyroxine (SYNTHROID, LEVOTHROID) 300 MCG table t, Take 300 mcg by mouth Daily., Disp: , Rfl: ; LORazepam (ATIVAN) 0.5 mg tablet, One to tw o tablets by mouth at bedtime, Disp: , Rfl: ; metFORMIN (GLUCOPHAGE) 500 mg tablet, Take tw o tablets by mouth every a.m. and three tablets every p.m., Disp: , Rfl: metoprolol tartrate (LOPRESSOR) 25 mg tablet, Take 25 mg by mouth Daily., Disp: , Rfl: ; o meprazole (PRILOSEC) 40 MG capsule, Take 40 mg by mouth Daily., Disp: , Rfl: ; ranitidine ( ZANTAC) 150 mg tablet, Take 150 mg by mouth Daily., Disp: , Rfl: ; simvastatin (ZOCOR) 20 m g tablet, Take 20 mg by mouth Daily., Disp: , Rfl: ; SUMAtriptan (IMITREX) 100 mg tablet, 1 /2-1 tablet by mouth daily as needed migraine, Disp: , Rfl: venlafaxine (EFFEXOR) 75 MG tablet, Take 75 mg by mouth 2 times daily., Disp: , Rfl: ; zip rasidone (GEODON) 60 MG capsule, Take 80 mg by mouth Daily., Disp: , Rfl: ; zolpidem (AMBIE N) 5 mg tablet, Take 10 mg by mouth nightly., Disp: , Rfl: Review of Systems Constitutional: Denies fever, chills, sweats, fatigue/weakness, and unexpected weight vela ge. Sleep: Denies trouble sleeping, excessive snoring, and daytime sleepiness. Eyes: Denies vision change, and eye irritation. ENT: Denies earache, tinnitus, decreased hearing, nosebleeds, sore throat, and hoarseness. Resp: See HPI. CV: Denies neck/chest/jaw pain with exertion, palpitations, lightheadedness, syncope, dysp nitesh on exertion, orthopnea, PND, peripheral edema, and claudication. GI: Denies trouble swallowing, nausea, vomiting, abdominal pain, diarrhea, constipation,m umberto, and hematochezia. Neurologic: Denies frequent headaches, seizures, tremors, numbness or tingling in hands or feet, vertigo, and fall or difficulty walking in past 6 months. Allergy Denies urticaria, allergic rash, hay fever. Objective BP 128/70 | Pulse 83 | Ht 1.676 m (5' 6") | Wt 93.895 kg (207 lb) | BMI 33.41 kg/m2 | SpO2 94% Appearance: Alert, cooperative, no distress, appears stated age Head: Normocephalic, without obvious abnormality, atraumatic Eyes: PERRL, conjunctiva/corneas clear Nose: Nares normal, septum midline, mucosa normal, no drainage or sinus tenderness Throat: Lips, mucosa, and tongue normal; teeth/dentures normal Neck: Supple, symmetrical, no JVD Lungs: No accessory muscle use, breath sounds right sided rhonchi, no wheezes or crackles . No dullness to percussion. Chest Wall: No tenderness or deformity Heart: Regular rate and rhythm, S1, S2 normal, no murmur, rub or gallop Extremities: Extremities normal, atraumatic, no cyanosis, clubbing, or edema Skin: Warm and dry Lymph nodes: Cervical and supraclavicular nodes normal Neurologic: Gait normal Data: Chest x-ray was done on 04/04/12 and 10/18/12 inhale and was reviewed and interpreted in clin ic today. It shows chronic lives in changes most Siddhartha in the bases. There appears obese able lateral cavitary abnormalities. Assessment 1. Abnormal chest x-ray-most likely post empyema/decortication changes over last 6 months Kait's pulmonary symptoms have remained relatively stable. The patient has not required a ntibiotics for pulmonary condition. Today her chest x-ray is unchanged from a study performed back in March 2012. 2. Chronic bronchitis-likely related to ongoing tobacco use and prior pulmonary infections . Patient encouraged to discontinue tobacco use. The interval between followup appointments will be lengthen. Plan 1. Seasonal influenza vaccination fall 2012. 2. Smoking cessation. 3. Pulmonary clinic followup appointment with repeat chest x-ray in 12 months time. CC: Bart Ba documented in this encounter Plan of Treatment +--------+---------+ + + + | Date | Type | Specialty | Care Team | Description | +--------+---------+ + + + | 06/19/ | Office | Neurology | Jimbo Samayoa MD | | | 2020 | Visit | | [address] | | | | | | [place] | | | | | | [address] | | | | | | | | +--------+---------+ + + + | 07/26/ | Office | Pulmonology | Navdeep Grande, | | | 2019 | Visit | | [address] | | | | | | [place] | | | | | | [address] | | | | | | | | +--------+---------+ + + + + +---------+--------+ + + | Name | Type | Priori | Associated Diagnoses | Order Schedule | | | | ty | | | + +---------+--------+ + + | XR Chest PA and | Imaging | Routin | Abnormal chest | Expected: | | Lateral | | e | x-ray Chronic | 10/18/2013, Expires: | | | | | bronchitis (HCC) | 10/18/2013 | + +---------+--------+ + + documented as of this encounter Visit Diagnoses + + | Diagnosis | + + | Abnormal chest x-ray - Primary Other nonspecific abnormal finding of lung field | + + | Chronic bronchitis (HCC) Unspecified chronic bronchitis | + + documented in this encounter
--- OUTSIDE RECORDS SUMMARY | ~2019-04-18 | XMS | Encounter Summary ---
Demographics + + + | Address | [address] | | | [place] [address] | + + + | Home Phone [...] | Organization | [facility] | [...] | | | | | [place] [address] | | + + + + + | Robson Escobar | ECON | Unknown | | + + + + + | Isabella Whitehead | ECON | Unknown | | + + + + + Care Team Providers + +------+ + | Care Motor Rebuilder Name | Role | Phone | + +------+ + | Bart Ba DO | PCP | | + +------+ + Reason for Visit + + + | Reason | Comments | + + + | Follow-up | | + + + Encounter Details +--------+---------+ + + + | Date | Type | Department | Care Team | Description | +--------+---------+ + + + | 04/04/ | Office | [facility] | Navdeep Grande, | Abnormal chest CT | | 2011 | Visit | PULMONARY [address] | MD [address] | (Primary Dx) | | | | [place], | [place] | | | | | [place] [address] | [address] | | | | | [phone] | | | +--------+---------+ + + + [...] + | Blood Pressure | 110/80 | 04/04/2012 10:57 AM | | | | | PST | | + + + + + | Pulse | 84 | 04/04/2012 10:57 AM | | | | | PST | | + + + + + | Temperature | - | - | | + + + + + | Respiratory Rate | - | - | | + + + + + | Oxygen Saturation | 97% | 04/04/2012 10:57 AM | | | | | PST | | + + + + + | Inhaled Oxygen | - | - | | | Concentration | | | | + + + + + | Weight | 98.9 kg (218 lb) | 04/04/2012 10:57 AM | | | | | PST | | + + + + + | Height | 167.6 cm (5' 6") | 04/04/2012 10:57 AM | | | | | PST | | + + + + + | Body Mass Index | 35.19 | 04/04/2012 10:57 AM | | | | | PST | | + + + + + documented in this encounter Patient Instructions Patient Instructions Navdeep Grande MD - 04/04/2012 11:24 AM PSTPlease call if lung inf ection symptoms worsen. Try to decrease tobacco use. 11: 26 AM PST documented in this encounter Progress Notes Navdeep Grande MD - 04/04/2012 11:13 AM PSTFormatting of this note might be different f rom the original. Pulmonary Follow Up HPI Carline Escobar is a 41 y.o. female patient of Bart Ba here today for follow up of a bnormal xray/CT chest. It has been 4 months since our last clinic appointment. At their last visit, we planned fo llow up with xray in March. Since the last visit she feels like their symptoms are stable . They have have had any acute illnesses. Current URI. Treated with Cephalexin for last week. They do feel like this medication regimen is working for them. Currently they are able to walk several miles at their own pace on level ground. They are n ot exercising regularly. They are not enrolled in cardiac/pulmonary rehabilitation or other physical therapy. She does cough chronically, and does produce mucous. The mucous is clear/liught yellow in c olor. They have not had hemoptysis. She has not been evaluated for nocturnal oxygen and does not use it. She does had symptoms of heartburn or reflux. Better with Zantac. They have had symptoms o f nasal congestion, runny nose or post nasal drip. The patient continues to smoke a pack of cigarettes a day. Yamila has received a seasonal influenza vaccination. She was no longer noting fever or chills. Past Medical History Past Medical History Diagnosis [...] mention of intractable migraine Abnormal chest CT Allergies: Allergies Allergen Reactions Azithromycin Lamictal Medications: Current outpatient prescriptions:levothyroxine (SYNTHROID, LEVOTHROID) 300 MCG tablet, Take 300 mcg by mouth Daily., Disp: , Rfl: ; ziprasidone (GEODON) 60 MG capsule, Take 80 mg by mouth Daily., Disp: , Rfl: ; zolpidem (AMBIEN) 5 mg tablet, Take 10 mg by mouth nightly., D isp: , Rfl: ; albuterol (VENTOLIN HFA) 90 mcg/puff inhaler, Inhale 2 puffs into the lungs e very 4 hours as needed., Disp: , Rfl: omeprazole (PRILOSEC) 40 MG capsule, Take 40 mg by mouth Daily., Disp: , Rfl: ; metoprolol tartrate (LOPRESSOR) 25 mg tablet, Take 25 mg by mouth Daily., Disp: , Rfl: ; venlafaxine (EFFEXOR) 75 MG tablet, Take 75 mg by mouth 2 times daily., Disp: , Rfl: ; gabapentin (NEUR ONTIN) 600 MG tablet, Take 600 mg by mouth 3 times daily., Disp: , Rfl: hyoscyamine (LEVSIN) 0.125 MG tablet, Place 0.125 mg under the tongue 4 times daily as need ed., Disp: , Rfl: ; SUMAtriptan (IMITREX) 100 mg tablet, 1/2-1 tablet by mouth daily as nee ded migraine, Disp: , Rfl: ; metFORMIN (GLUCOPHAGE) 500 mg tablet, Take two tablets by mout h every a.m. and three tablets every p.m., Disp: , Rfl: ; simvastatin (ZOCOR) 20 mg tablet, Take 20 mg by mouth Daily., Disp: , Rfl: LORazepam (ATIVAN) 0.5 mg tablet, One to two tablets by mouth at bedtime, Disp: , Rfl: ; H YDROcodone-acetaminophen (NORCO) 7.5-325 mg per tablet, Take 7.5-325 mg by mouth every 4 jennifer rs., Disp: , Rfl: ; ergocalciferol (VITAMIN D-2) 50,000 units capsule, Take 50,000 Units by mouth Daily., Disp: , Rfl: ; ranitidine (ZANTAC) 150 mg tablet, Take 150 mg by mouth Daily ., Disp: , Rfl: Insulin Glargine (LANTUS SC), SOLN - 50 units as needed, Disp: , Rfl: ; Insulin Aspart (NO VOLOG FLEXPEN SC), SOLN, Disp: , Rfl: ; njmtcrlfou-qlzinng-bgeontzb (BUTALBITAL COMPOUND/ A) per tablet, One tablet by mouth every 6 hours as needed for migraine, Disp: , Rfl: ; aza THIOprine (AZASAN) 75 MG TABS, Take 50 mg by mouth 4 times daily., Disp: , Rfl: Review of Systems Constitutional: [...] urticaria, allergic rash, hay fever. Objective BP 110/80 | Pulse 84 | Ht 1.676 m (5' 6") | Wt 98.884 kg (218 lb) | BMI 35.19 kg/m2 | SpO2 97% Appearance: Alert, cooperative, no distress, appears stated age Head: Normocephalic, without obvious abnormality, atraumatic Eyes: PERRL, conjunctiva/corneas clear Nose: Nares normal, septum midline, mucosa normal, no drainage or sinus tenderness Throat: Lips, mucosa, and tongue normal; teeth/dentures normal Neck: Supple, symmetrical, no JVD Lungs: No accessory muscle use, breath sounds are clear to auscultation bilaterally with the exception of rhonchi on the right., no wheezes, crackles. No dullness to percussion. Chest Wall: No tenderness or deformity Heart: Regular rate and rhythm, S1, S2 normal, no murmur, rub or gallop Extremities: Extremities normal, atraumatic, no cyanosis, clubbing, or edema Skin: Warm and dry Lymph nodes: Cervical and supraclavicular nodes normal Neurologic: Gait normal Data: Chest x-ray was done on and 04/04/12 and was reviewed and interpreted in clinic adriana bernabe. It shows significant improvement of the patient's right-sided pulmonary infiltrates has o ccurred. There is a question of a chronic right basilar changes. The left lung appears nor mal. Assessment 1. Abnormal CT scan the chest/chest x-ray-Ms. Escobar is a 41-year-old smoker who has a hist ory of a right-sided empyema from 2005. Her empyema was treated with decortication. Follow ing the procedure right-sided pulmonary cavitary abnormalities were noted. Her workup inclu ded fungal and AFB cultures in September of 2011. These were negative. Followup imaging in [address] scan of the chest. No progression has occurred. Today the patient returns for followup. She had a repeat chest x-ray. Recent bronchitis symptoms are noted and are currently being treated with cephalexin. Goran garcia's symptoms are improving. No evidence of radiographic progression is appreciated. I suspect that the patient's previ ously noted radiographic abnormalities or sequelae from her severe pneumonia/empyema. Plan 1. Continue radiographic monitoring with repeat chest x-ray in 6 months time. 2. Pulmonary clinic followup appointment in September 2012. 3. I've asked that she is to contact her office if persistent pulmonary infectious symptom s were to occur. 4. Smoking cessation encouraged. CC: Brat Ba documented in this encounter Plan of [...] [place] | | | | | | [address] | | | | | | | | +--------+---------+ + + + | 07/26/ | Office | Pulmonology | Navdeep Grande, | | | 2019 | Visit | | [address] | | | | | | [place] | | | | | | [address] | | | | | | | | +--------+---------+ + + + documented as of this encounter Results XR Chest PA and Lateral (10/18/2012 11:44 AM PDT) + + | Specimen | + + | | + + + + + | Narrative | Performed At | + + + | [facility] | SPECULATOR | | Department [address] [place] [address] | [facility] | | [ rep [address]] [ rep [facility] | | st zip] Signed | - IMAGING | | | | | Patient Name: CARLINE ESCOBAR Physician: | | | : 1970 Age: 42 Sex: F Unit #: [id number] | | | Exam Date: 10/18/12 Location: [facility] [place] | | | Report #: [id number] Page: | | | %(RAD)RES..mtdd.print.filter("pg") of %(RAD) | | | RES..mtdd.print.filter("tpg") | | | | | | Accession Number: [id number] | | | TWO VIEW CHEST CLINICAL HISTORY: PRIOR RIGHT-SIDED | | | EMPYEMA. COMPARISON: 04/04/2012 | | | FINDINGS: Heart size is normal. Hilar regions and pulmonary | | | vasculature are normal. There is persistent asymmetric elevation | | | of the right hemidiaphragm with blunting and tethering of the right | | | costophrenic sulcus, typical for pleural/parenchymal scarring. These | | | appearances are unchanged from the prior exam. Left lung shows | | | normal appearance and inflation. No new or additional areas of | | | abnormal lung density are present. IMPRESSION: | | | 1. STABLE PLEURAL/PARENCHYMAL SCARRING OF THE RIGHT LUNG BASE. NO | | | ACUTE CARDIOPULMONARY ABNORMALITY. Dictated Date/Time: | | | 10/18/2012 11:44 Transcribed Date/Time: 10/18/2012 12:20 | | | Mail Caller: <<Signature on | | | File>> | | | Ace Avery MD10/18/12 [id number] <Electronically signed by | | | Ace Avery MD> Ace Avery MD 10/18/12 | | | 1144 Mail Caller: [employer] [email or web address]/02/13 1220 | | | Navdeep Grande MD | | + + + + + + + + | Performing | Address | City/State/Zipcode | Phone Number | | Organization | | | | + + + + + | [facility] | [address] | [place], [place] | [phone] | | [facility] | | [address] | | | - IMAGING | | | | + + + + + documented in this encounter Visit Diagnoses + + | Diagnosis | + + | Abnormal chest CT - Primary Nonspecific (abnormal) findings on radiological and other | | examination of other intrathoracic organs | + + documented in this encounter
--- OUTSIDE RECORDS SUMMARY | ~2019-04-18 | XMS | Encounter Summary ---
Demographics + + + | Address | [address] | | | [place] [address] | + + + | Home Phone [...] Author + + + | Author | [facility] | + + + | Organization | [facility] | + + + | Address | Unknown | + + + | Phone | Unavailable | + + + Support + + + + + | Name | Relationship | Address | Phone | + + + + + | Scot Johnson | ECON | [address] | | | | | [place] [address] | | + + + + + Care Team Providers + +------+ + | Care Cyber Software Engineer Name | Role | Phone | + +------+ + PCP | Unavailable | + +------+ + Encounter Details +--------+ + + + + | Date | Type | Department | Care Team | Description | +--------+ + + + + | 11/12/ | Office | [facility] | Note, [...] as of this encounter Progress Notes Interface, Embalmer/Funeral Director In - 05/02/2006 2:20 PM [facility]: 11/12/97 RHEUMATOLOGY CLINIC CHIEF COMPLAINT: Referral for evaluation of rheumatoid arthritis. HISTORY OF PRESENT ILLNESS: Ms. Min is a 27-year-old woman who presents with an approximate six year history of polyarthritis. She remembers it starting in her hips and shoulders and progressing to her knees, ankles and wrists. She said any pain was initially present in a single joint and then over days spread to multiple joints. She says that she noticed her proximal interphalangeal joints being red, swollen and hot. She notes general joint stiffness which is worse in the morning and takes approximately an hour to work out. She has not noticed back stiffness. She does have back pain but it is worse with activity and generally not present in the morning. She has never had a joint aspiration. She reports being very fatigued, sleeping eight to 12 hours per day. The onset of symptoms is not coincidental with any infections or medications. She has been treated by her primary physician and reports that NSAIDS alone did not work well but that NSAIDS with Prednisone have helped decrease her pain. She reports some decrease in arm and leg strength over the last several years. She reports a history of small skin infections. She denies fever, chills and night sweats. She does note daily headaches and some pain with chewing. She notes dry eyes and a dry mouth which is a new symptom as of the last six months or so. She denies conjunctivitis or iritis, Raynaud's phenomenon, photosensitivity, history of sexually transmitted diseases, travel, insect bites. She notes a periodic scaly rash that "looks like psoriasis" over her elbows bilaterally. REVIEW OF SYSTEMS: General the patient denies significant weight change. CARDIOVASCULAR: She denies palpitations, chest pain, syncope. PULMONARY: Denies shortness of breath, cough,hemoptysis. GASTROINTESTINAL: No diarrhea, constipation, blood in the stool, vomiting, abdominal pain. NEUROLOGIC: No vertigo, dizziness, diplopia, visual changes. PAST MEDICAL HISTORY: 1. Hypothyroidism, treated with Levothyroxine. 2. Status post oral surgery. MEDICATIONS: 1. Prednisone 5 mg p.o. q.d. (Started on 60 mg one year ago and tapered). 2. Thyroxine .2 mg q.d. 3. Sulindac 200 mg p.o. b.i.d. 4. Periodic antibiotics for skin infections. ALLERGIES: No known drug allergies. FAMILY HISTORY: Significant for the patient's mother's sister reportedly having rheumatoid arthritis and Sjogren's. The patient states that Lupus runs on her father's side of the family. SOCIAL HISTORY: She lives in [place], [place] with her son and boyfriend. She does not have a history of significant alcohol use and does not currently drink at all. PHYSICAL EXAMINATION: General alert, oriented times three no acute distress, pleasant. VITALS: Weight 256 pounds, blood pressure 124/78, pulse 80. HEENT: No conjunctival injection or drainage. Conjunctiva appear moist. No oral lesions. Mucous membranes appear moist. NECK: There is no cervical adenopathy. LUNGS: Clear to auscultation bilaterally, no wheezes, rubs or rhonchi. CARDIOVASCULAR: Regular rate and rhythm without murmur. Normal S1 S2. No murmurs, rubs or gallops. ABDOMEN: Obese, nontender, nondistended. MUSCULOSKELETAL: Upper extremities, significant bogginess of wrists and metacarpophalangeal joints bilaterally. 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 Nodules over the olecranon and olecranon bursitis bilaterally. Some nodules extending along the extensor surface of the left forearm. Flexion deformity of the right elbow greater than left. The patient has normal strength of the upper extremities bilaterally but is unable to fully make a fist. Lower extremity there is crepitus of the knees bilaterally, no effusion appreciated. There is tenderness of the metatarsophalangeals bilaterally. Cervical spine has limited rotation, normal flexion and extension. ASSESSMENT/PLAN: This 27-year-old woman comes to us with history and physical exam findings consistent with rheumatoid arthritis. There is currently no evidence of extra-articular disease in this patient. She does have significant evidence of synovitis and early joint deformities. This warrants a fairly aggressive treatment of her rheumatoid arthritis. We started the patient on Methotrexate 7.5 mg q. weekly along with Folate 1 mg q. day. She should have a CBC and liver function tests checked monthly and faxed to Dr. Anup Dawson, Rheumatology Fellow. Her primary care physician may also be interested in getting a chest x-ray on the remote chance that she develops a pneumonitis and comparison films are needed. We also wrote a prescription for Oscal b.i.d. secondary to her Prednisone. She should continue her Sulindac and Prednisone for the moment. The mcc goal will be to wean the Prednisone off. We considered obtaining AP hand and foot x-rays but since this patient requires prior authorization and we were uncertain whether she had had this done in the past, we deferred it to her primary care physician. These would be useful to evaluate the severity of her past disease and to prognosticate. The patient was informed of the possible side affects of her medications and instructed as to the importance of getting monthly lab tests and abstaining from alcohol. She will followup in two months for evaluation of response to therapy and for evaluation regarding use of additional DMARD'S. The patient was staffed with Dr. Lainez. Daniel Laurent M.D. Resident, Internal Medicine Deyvi Lainez M.D. A/C Technician, Rheumatology ES:aster documented in this encounter Plan of Treatment Not on filedocumented as of this encounter Visit Diagnoses Not on filedocumented in this encounter
--- OUTSIDE RECORDS SUMMARY | ~2019-04-18 | XMS | Encounter Summary ---
Demographics + + + | Address | [address] | | | [place] [address] | + + + | Home Phone | | + + + | Preferred Language | Unknown | + + + | Marital Status | Single | + + + | Samaritan Affiliation | CHR | + + + | Race | White | + + + | Ethnic Group | Not or | + + + Author + + + | Author | [facility] | + + + | Organization | [facility] | + + + | Address | Unknown | + + + | Phone | Unavailable | + + + Support + + + + + | Name | Relationship | Address | Phone | + + + + + | Scot Johnson | ECON | [address] | | | | | [place] [address] | | + + + + + Care Team Providers + +------+ + | Care Assembler Dielectric Heater Name | Role | Phone | + +------+ + PCP | Unavailable | + +------+ + Encounter Details +--------+ + + + + | Date | Type | Department | Care Team | Description | +--------+ + + + + | 06/10/ | Office | [facility] | Note, Outpatient | Progress Note | | 2000 | Visit-Trans | MEDICINE | Clinic | [...] as of this encounter Progress Notes Interface, Docketing Specialist In - 02/18/2006 3:06 AM PSTCLINIC DATE: 06/10/2000 RHEUMATOLOGY CLINIC HISTORY OF PRESENT ILLNESS: Ms. Kait Min is a 30-year-old female with a diagnosis of rheumatoid arthritis. She has been followed in the Rheumatology Clinic at [facility] by Dr. Ameya Steen in the past. She began having symptoms in 1991 and was diagnosed with rheumatoid arthritis in 1997, started on methotrexate, but then was lost to follow up until April 1999. At that time, she was seen in our clinic and started again on methotrexate initially at 7.5 mg and then titrated up to 15 mg a week. She has intermittently needed prednisone at low dose along with a methotrexate. She was last evaluated by Dr. Steen in September 1999, and at that time, it was noted that she did have a significant degree of continuing synovitis on the methotrexate. Consideration was given to adding sulfasalazine or Plaquenil as well as considering the possibility of trying her on interleukin-1 receptor antagonist as part of the study. Because of difficulties with her Ensure, no definite plans were made at that appointment, but she was to follow up with Dr. Steen over the phone. According to the patient in December 1999, she was started on Enbrel by her primary care doctor in [place] with the guidance of Dr. Steen. She tolerated it well for approximately 2 months, but then apparently had significant infection, although she cannot describe what type of infection she had at that time. There were concerns that this might be a result of immunosuppression from the Enbrel and that medication was stopped. Since that time, she is continued on her methotrexate at 15 mg per week as well as low dose prednisone at 2.5 mg. She also takes Celebrex 1 tablet q.d. to b.i.d. for joint discomfort. She feels she has moderate control of her joint complaints with the methotrexate and had really noticed no improvement on the Enbrel after 2 months of therapy. She also notes that in the past several months, she was diagnosed with type 2 diabetes and started on an oral sulfonylurea medication. She continues to take Synthroid and Zoloft for depression. CURRENT MEDICATIONS: Methotrexate 2.5 mg tablets, 6 tablets p.o. per week; folate 1 mg p.o. q.d.; prednisone 2.5 mg p.o. q.d.; Celebrex 200 mg 1 p.o. q.d. to 1 p.o. b.i.d. p.r.n. pain; vitamins 1 p.o. q.d.; Synthroid 300 mcg p.o. q.d.; Zoloft 50 mg p.o. q.d.; and Glucotrol, she does not know the dose of that medication; and she also takes Depo-Provera shots every 3 months. OBJECTIVE: VITAL SIGNS: Her weight is 274 pounds, pulse is 76, and blood pressure 122/64. Her exam today is limited to musculoskeletal exam. MUSCULOSKELETAL: She has full range of motion to her cervical spine and is nontender along her cervical, thoracic, and lumbar spine. She has full range of motion to abduction, flexion, and internal and external rotation of the shoulders, and they are nontender without erythema or warmth. She has full extension and flexion at her elbows with bilateral large rheumatoid nodules over the olecranon bursa. She has normal range of motion for flexion and extension at her wrist joints with trace synovitis. She has 1+ synovitis of her MCP joints of her 1st, 3rd, and 4th digits on her left hand; her 1st, 2nd, and 3rd digits on her right hand; as well as, slight tenderness to palpation on her PIP joints, all of her fingers bilaterally. She has slightly reduced micro computer data processor strength bilaterally but full range of motion to micro computer data processor bilaterally. She has bilateral synovial cysts on the dorsal surface of her wrist, worse on the right than on the left and small rheumatoid nodules on the extensor tendons of her hands bilaterally. She has no evidence of knee effusions or tenderness along the knee joints bilaterally. She has full range of motion at her ankles without evidence of effusion. She has bilateral Achilles tendon rheumatoid nodules. LABORATORY DATA: Labs were last done in April 1999 on our computer. I do not have any other lab data since that time. Liver function tests and CBC were normal at that time with the exception of a slightly elevated white blood cell count at 17,000. There are no x-rays of these to review since her last visit in Rheumatology Clinic in September 1999. IMPRESSION AND PLAN: This is a 30-year-old female with rheumatoid arthritis and rheumatoid nodules who has tolerated methotrexate but is still requiring prednisone and still with evidence of active synovitis on her exam. In the past, she did not tolerate Enbrel with an apparent infectious complication and apparently have little improvement of her joint symptoms according to the patient while on the Enbrel. She clearly could benefit from escalation of her disease modifying drug regimen. At this time, we will attempt to add sulfasalazine to see if she can tolerate this over the next 2 to 3 months, and we will start her on 500 mg p.o. q.d. for 1 week, then increase to 500 mg p.o. b.i.d. for 1 week, and then increase to 1 g b.i.d. after that. We will check a CBC liver function tests today, and this should be followed up closely with every monthly liver function tests and CBC over the next 3 months. If this is not effective, the next step would be to add Plaquenil on top of the sulfasalazine. I would like to see the patient in followup here in Rheumatology Clinic in 3 months if she understands this and agrees to find transportation for this. Finally, she does not have the address or phone number of her clinic physician. I will attempt to locate him and send a copy of this letter once I have found his address. Dorene Waite M.D. Deyvi Lainez M.D. [facility] / [place] [id number] / [id number] / [id number] / [id number] signed by Interface, Docketing Specialist In at 02/18/2006 3:06 AM PSTdocume nted in this encounter Plan of Treatment Not on filedocumented as of this encounter Visit Diagnoses Not on filedocumented in this encounter"
--- OUTSIDE RECORDS SUMMARY | ~2019-04-18 | XMS | Encounter Summary ---
Demographics + + + | Address | [address] | | | [place] [address] | + + + | Home Phone | | + + + | Preferred Language | Unknown | + + + | Marital Status | Single | + + + | Sikhism Affiliation | Unknown | + + + | Race | Unknown | + + + | Ethnic Group | Unknown | + + + Author + + + | Author | [facility] | | | and [place] | + + + | Organization | [facility] | | [...] | | | | | [place] [address] | | + + + + + | Robson Min | ECON | Unknown | | + + + + + | Isabella Whitehead | ECON | Unknown | | + + + + + Care Team Providers + +------+ + | Care Fitness Coordinator Name | Role | Phone | + [...] Services | Medicine | Nocturnal | Neno Thong | [place] [address] | | | Required | | hypoxia | MD Srinivas [address] | [place] | | | | | Chronic | [place] | [place], | | | | | obstructive | [address] | [place] [address] | | | | | pulmonary | [place], [place] | Phone: | | | | | disease, | [address] | [phone] | | | | | unspecified | Phone: | Fax: | | | | | COPD type | [phone] | [phone] | | | | | (HCC) | Fax: | | | | | | Procedures | [phone] | | | | | | [place] POLYSOM | | | | | | [...] | +--------+ + + + + | 10/26/ | Hospital | [facility] | Neno Walker | Nocturnal hypoxia; | | 2019 - | Encounter | MED CTR SLEEP | MD Srinivas [address] [place] [address] | Chronic obstructive | | | | [address] [place] | [facility] | pulmonary disease, | | 10/27/ | | [place] | [place] [address] | unspecified COPD | | 2019 | | [address] | [phone] | type (HCC) | | | | [phone] | | | +--------+ + + + [...] puffs into | 1 | 11 | 05//20 | | | HFA) 90 mcg/puff | [...] + + + +---------+ + + | atorvaSTATin | Take 20 mg by mouth | | 0 | 10/27/19 | | | (LIPITOR) 20 mg | nightly. | | | 19 | | | tablet | | | [...] 1 patch onto | | 0 | 09/03/19 | | | (CATAPRES) 0.3 mg/24 | [...] + + +---------+ + + | LANTUS FUNEZAR | Inject 20 Units | | 0 [...] oxygen | 1 each | 0 | 08/27/19 | | | Therapy Supplies | concentrator [...] + + + +---------+ + + | nicotine | | | 0 | 10/27/19 | | | (NICODERM) 7 mg/24 | | | | 19 | 9 | | hr | | | | | | + [...] [place] | | | | | | [address] | | | | | | | | +--------+---------+ + + + | 07/26/ | Office | Pulmonology | Navdeep Grande, | | | 2019 | Visit | | MD [address] | | | | | | [place] | | | | | | [address] | | | | | | | | +--------+---------+ + + + documented as of this encounter Procedures + +--------+ + + + | Procedure Name | Priori | Date/Time | Associated Diagnosis | Comments | | | ty | | | | + +--------+ + + + | SLEEP STUDY | Routin | 10/28/2018 | | Results for this | | DIAGNOSTIC ONLY NO | e | 10:42 AM | | procedure are in the | | PAP | | PDT | | results section. | + +--------+ + + + | SLEEP STUDY | Routin | 10/28/2018 | | Results for this | | DIAGNOSTIC ONLY NO | e | 10:42 AM | | procedure are in the | | PAP | | PDT | | results section. | + +--------+ + + + documented in this encounter Results Sleep study diagnostic only (no PAP) (10/28/2018 10:42 AM PDT) + + + | Narrative | Performed At | + + + | [facility] | | | Aaron Espino MD 10/28/2018 10:50 [facility] | | | [place] [address] | | | Polysomnogram Report on Kait Min performed on October 26, 2018. | | | Clinical Information: Kait Min is a 48 y.o. female who | | | underwent polysomnographically guided oxygen titration on October 26, | | | 2018 because of severe nocturnal oxygen desaturation in a patient with | | | chronic obstructive pulmonary disease but without significant | | | obstructive sleep apnea (diagnostic nocturnal polysomnography | | | performed in September 21, 2018 demonstrated an apnea hypotony index of 2.6. | | | Farhad oxygen saturation was 81% and the patient spent 105.1 minutes | | | with an oxygen saturation less than or equal to 88%). Daytime | | | arterial blood gases have demonstrated on room air a PO2 that is not | | | elevated (and thus the patient is not qualified for bilevel positive | | | airway pressure therapy). Technical Information: Please see technical | | | data which is attached. Definitions (The AASM Manual for the Scoring | | | of Sleep and Associated Events, Version 2.5; 2018): Apnea: There is a | | | drop in the peak signal excursion by 90% or greater of pre-event | | | baseline using an oronasal thermal sensor (diagnostic study), PAP | | | device flow (titration study), or an alternative apnea sensor | | | (diagnostic study); the duration of the 90% or greater drop in sensor | | | signal is 10 seconds or longer. Obstructive Apnea: Event associated | | | with continued or increased inspiratory effort throughout the entire | | | period of absent airflow. Central Apnea: Event associated with | | | absent inspiratory effort throughout the entire period of absent | | | airflow. Mixed Apnea: Event associated with absent inspiratory | | | effort in the initial portion of the event followed by resumption of | | | inspiratory effort during the second portion of the event. Hypopnea: | | | The peak signal excursions drop by greater than or equal to 30% of | | | pre-event baseline using a recommended or alternative airflow sensor | | | and the duration of the >= 30% drop in signal excursion is greater | | | than or equal to 10 seconds and there is a greater than or equal to a | | | 4% oxygen desaturation from pre-event baseline. Respiratory Event | | | Related Arousal: A sequence of breaths lasting 10 seconds or longer | | | characterized by increasing respiratory effort or by flattening of the | | | inspiratory portion of the nasal pressure (diagnostic study) or PAP | | | device flow (titration study) waveform leading to arousal from sleep | | | when the sequence of breaths does not meet criteria for an apnea or | | | hypopnea. Sleep Architecture: Lights out was recorded at 2151 | | | hundred hours on October 26, 2018 and lights on was recorded at 0606 | | | hundred hours on October 27, 2018. The latency to sleep onset was short | | | at 2 minutes. The patient slept for 347.5 minutes out of 495 minutes | | | of study time resulting an a sleep efficiency that was low at 70.2 %. | | | The amount of N1 sleep was normal at 3.5 % of the Total Sleep Time; | | | the amount of N2 sleep was normal at 38 % of the Total Sleep Time; the | | | amount of N3 sleep was elevated at 53.4 % of the Total Sleep Time; | | | the amount of REM sleep was low at 5.2 % of the Total Sleep Time and | | | the latency to REM sleep was prolonged at 448 minutes. Sleep in the | | | following positions was recorded: left lateral decubitus 79.6%, right | | | lateral decubitus 0%, supine 20.4%, prone 0%. Sleep was not | | | significantly fragmented; the Arousal Index was 8.6. The patient | | | reported this to be a usual night's sleep. Cardiopulmonary Monitoring: | | | The heart rate averaged in the 70s beats per minute. Mild rate | | | variability was noted. The rhythm was sinus. In the course of the | | | evening there were 5 obstructive apneas, 0 mixed apneas, 0 central | | | apneas, 3 hypopneas, and 18 Respiratory Effort Related Arousals | | | (RERA's). The Respiratory Disturbance Index (RDI) was normal at 4.5; | | | the Apnea-Hypopnea Index (AHI) was normal at 1.4; the Apnea Index (AI) | | | was normal at 0.5. The respiratory events occasioned minimal sleep | | | fragmentation; the Respiratory Arousal Index was 3.8. The farhad oxygen | | | saturation was 72% and the patient spent 97.3 minutes with an oxygen | | | saturation of less than or equal to 88%. She was gradually titrated | | | from oxygen 2 L/min to oxygen 5 L/min which was required to maintain | | | an oxygen saturation consistently higher than or equal to 88%. TCO2 | | | was elevated (55 to 59 mmHg for 94 minutes, 60 to 64 mmHg for 230 | | | minutes, greater than 65 mmHg for 13 minutes). Respiratory therapist | | | were unable to obtain a timely arterial blood gas.. Limb Movement | | | Monitoring: There were 32 Periodic Limb Movements (PLMS Index of 5.5) | | | of which 7 were associated with arousals; the PLMS Arousal Index was | | | normal at 1.2. Interpretation: This polysomnogram is abnormal | | | secondary to: Severe nocturnal oxygen desaturation is noted. Oxygen | | | 5 L/min is required to maintain oxygen saturations above 88%.. | | | Suggestions:1. The principles of sleep hygiene should be reviewed with | | | the patient.2. Oxygen 5 L/min is advised while sleeping. Neno Durham | | | Jr. Walker MD, FAASMMedical DirectorMena Medical Center Sleep | | | [facility], | | | WAClinical 4Th Grade [facility] | | | [place], [place] | | |In the course of the evening there were 5 obstructive apneas, 0 | | |mixed apneas, 0 central apneas, 3 hypopneas, and 18 Respiratory | | |Effort Related Arousals (RERA's). The Respiratory Disturbance | | |Index (RDI) was normal at 4.5; the Apnea-Hypopnea Index (AHI) was | | |normal at 1.4; the Apnea Index (AI) was normal at 0.5. | | | | | |The respiratory events occasioned minimal sleep fragmentation; | | |the Respiratory Arousal Index was 3.8. | | | | | |The farhad oxygen saturation was 72% and the patient spent 97.3 | | |minutes with an oxygen saturation of less than or equal to 88%. | | |She was gradually titrated from oxygen 2 L/min to oxygen 5 L/min | | |which was required to maintain an oxygen saturation consistently | | |higher than or equal to 88%. | | | | | |TCO2 was elevated (55 to 59 mmHg for 94 minutes, 60 to 64 mmHg | | |for 230 minutes, greater than 65 mmHg for 13 minutes). | | | | | |Respiratory therapist were unable to obtain a timely arterial | | |blood gas.. | | | | | |Limb Movement Monitoring: There were 32 Periodic Limb Movements | | |(PLMS Index of 5.5) of which 7 were associated with arousals; the | | |PLMS Arousal Index was normal at 1.2. | | | | | |Interpretation: This polysomnogram is abnormal secondary to: | | | | | |Severe nocturnal oxygen desaturation is noted. Oxygen 5 L/min is | | |required to maintain oxygen saturations above 88%.. | | | | | |Suggestions: | | |1. The principles of sleep hygiene should be reviewed with the | | |patient. | | |2. Oxygen 5 L/min is advised while sleeping. | | | | | |Neno Walker Jr., MD, [facility] | | |It Consulting Manager | | |[facility] | | |[facility] | | |[place] | | |Clinical forex trader | | |[facility] | | |[place], [place] | | + + + + + | Procedure Note | + + | Neno Walker Jr., MD - 10/28/2018 10:42 AM PDT [facility] | | Disorders [place], [place] [id number] Report on | | Kait Min performed on October 26, 2018.Clinical Information: Kait Min is a 48 | | y.o. female who underwent polysomnographically guided oxygen titration on October 26, 2018 | | because of severe nocturnal oxygen desaturation in a patient with chronic obstructive | | pulmonary disease but without significant obstructive sleep apnea (diagnostic nocturnal | | polysomnography performed in September 21, 2018 demonstrated an apnea hypotony index of 2.6. | | Farhad oxygen saturation was 81% and the patient spent 105.1 minutes with an oxygen | | saturation less than or equal to 88%). Daytime arterial blood gases have demonstrated | | on room air a PO2 that is not elevated (and thus the patient is not qualified for | | bilevel positive airway pressure therapy).Technical Information: Please see technical | | data which is attached.Definitions (The AASM Manual for the Scoring of Sleep and | | Associated Events, Version 2.5; 2018): Apnea: There is a drop in the peak signal | | excursion by 90% or greater of pre-event baseline using an oronasal thermal sensor | | (diagnostic study), PAP device flow (titration study), or an alternative apnea sensor | | (diagnostic study); the duration of the 90% or greater drop in sensor signal is 10 | | seconds or longer. Obstructive Apnea: Event associated with continued or increased | | inspiratory effort throughout the entire period of absent airflow. Central Apnea: Event | | associated with absent inspiratory effort throughout the entire period of absent | | airflow. Mixed Apnea: Event associated with absent inspiratory effort in the initial | | portion of the event followed by resumption of inspiratory effort during the second | | portion of the event. Hypopnea: The peak signal excursions drop by greater than or equal | | to 30% of pre-event baseline using a recommended or alternative airflow sensor and the | | duration of the >= 30% drop in signal excursion is greater than or equal to 10 seconds | | and there is a greater than or equal to a 4% oxygen desaturation from pre-event | | baseline. Respiratory Event Related Arousal: A sequence of breaths lasting 10 seconds or | | longer characterized by increasing respiratory effort or by flattening of the | | inspiratory portion of the nasal pressure (diagnostic study) or PAP device flow | | (titration study) waveform leading to arousal from sleep when the sequence of breaths | | does not meet criteria for an apnea or hypopnea.Sleep Architecture: Lights out was | | recorded at 2151 hundred hours on October 26, 2018 and lights on was recorded at 0606 | | hundred hours on October 27, 2018. The latency to sleep onset was short at 2 minutes. The | | patient slept for 347.5 minutes out of 495 minutes of study time resulting an a sleep | | efficiency that was low at 70.2 %. The amount of N1 sleep was normal at 3.5 % of the | | Total Sleep Time; the amount of N2 sleep was normal at 38 % of the Total Sleep Time; the | | amount of N3 sleep was elevated at 53.4 % of the Total Sleep Time; the amount of REM | | sleep was low at 5.2 % of the Total Sleep Time and the latency to REM sleep was | | prolonged at 448 minutes.Sleep in the following positions was recorded: left lateral | | decubitus 79.6%, right lateral decubitus 0%, supine 20.4%, prone 0%.Sleep was not | | significantly fragmented; the Arousal Index was 8.6.The patient reported this to be a | | usual night's sleep.Cardiopulmonary Monitoring: The heart rate averaged in the 70s beats | | per minute. Mild rate variability was noted. The rhythm was sinus.In the course of the | | evening there were 5 obstructive apneas, 0 mixed apneas, 0 central apneas, 3 hypopneas, | | and 18 Respiratory Effort Related Arousals (RERA's). The Respiratory Disturbance Index | | (RDI) was normal at 4.5; the Apnea-Hypopnea Index (AHI) was normal at 1.4; the Apnea | | Index (AI) was normal at 0.5.The respiratory events occasioned minimal sleep | | fragmentation; the Respiratory Arousal Index was 3.8.The farhad oxygen saturation was 72% | | and the patient spent 97.3 minutes with an oxygen saturation of less than or equal to | | 88%. She was gradually titrated from oxygen 2 L/min to oxygen 5 L/min which was | | required to maintain an oxygen saturation consistently higher than or equal to 88%.TCO2 | | was elevated (55 to 59 mmHg for 94 minutes, 60 to 64 mmHg for 230 minutes, greater than | | 65 mmHg for 13 minutes).Respiratory therapist were unable to obtain a timely arterial | | blood gas..Limb Movement Monitoring: There were 32 Periodic Limb Movements (PLMS Index | | of 5.5) of which 7 were associated with arousals; the PLMS Arousal Index was normal at | | 1.2.Interpretation: This polysomnogram is abnormal secondary to:Severe nocturnal oxygen | | desaturation is noted. Oxygen 5 L/min is required to maintain oxygen saturations above | | 88%..Suggestions:1. The principles of sleep hygiene should be reviewed with the | | patient.2. Oxygen 5 L/min is advised while sleeping.Neno Walker Jr., MD, | | FAASMMedical DirectorMena Medical Center [facility] Disorders [facility] | | [facility] [employer] [facility] | | [place], [place] | |It Consulting Manager | |[facility] [place] | |[facility] | |[place], [place] | |Clinical forex trader | |[facility] | |[place], [place] | + + documented in this encounter Visit Diagnoses + + | Diagnosis | + + | Nocturnal hypoxia Hypoxemia | + + | Chronic obstructive pulmonary disease, unspecified COPD type (HCC) | + + documented in this encounter"
--- OUTSIDE RECORDS SUMMARY | ~2019-04-18 | XMS | Encounter Summary ---
Demographics + + + | Address | [address] | | | [place] [address] | + + + | Home Phone | | + + + | Preferred Language | Unknown | + + + | Marital Status | Single | + + + | Sikh Affiliation | Unknown | + + + | Race | Unknown | + + + | Ethnic Group | Unknown | + + + Author + + + | Author | [facility] | | | and [place] | + + + | Organization | [facility] | | | [...] | | | | | [place] [address] | | + + + + + | Robson Escobar | ECON | Unknown | | + + + + + | Isabella Whitehead | ECON | Unknown | | + + + + + Care Team Providers + +------+ + | Care Manager Internship Name | Role | Phone | + +------+ + | Bart Ba DO | PCP | | + +------+ + Encounter Details +--------+ + + + + | Date | Type | Department | Care Team | Description | +--------+ + + + + | 03/21/ | Hospital | [facility] | Luis Birmingham, | NSTEMI (non-ST | | 2013 - | Encounter | [facility] | MD [address] | elevated myocardial | | | | CARE FLOOR [address] | [place] [address] | infarction) ([facility]); | | 03/24/ | | [address] | [phone] | Current smoker; RA | | 2012 | | [place], [place] | | (rheumatoid | | | | [address] | | arthritis) ([facility]); | | | | [phone] | | ARF (acute renal | | | | | | failure) ([facility]); | | | | | | Bacterial pneumonia, | | | | | | unspecified; COPD | | | | | | exacerbation ([facility]); | | | | | | Elevated brain | | | | | | natriuretic peptide | | | | | | (BNP) level; | | | | | | Hypoxemia; Abnormal | | | | | | LFTs; Hyponatremia; | | | | | | Hyperkalemia; DM | | | | | | (diabetes mellitus) | | | | | | ([facility]); Tobacco | | | | | | abuse; Diabetes | | | | | | mellitus type II; | | | | | | Hyperlipidemia; | | | | | | Hypertension; | | | | | | Bipolar 2 disorder | | | | | | (HCC) | +--------+ + + + + [...] documented as of this encounter Discharge Summaries Arcadio Cobian - 03/24/2013 10:51 AM PST Discharge Summaries by Arcadio Cobian MD at 03/24/13 1051 Author: Arcadio Cboian MD Service: Hospitalist Author Type: Physician Filed: 03/24/13 1056 Date of Service: 03/24/13 105 Status: Signed Spear Fisher: Arcadio Cobian MD (Physician) [facility] Service: Hospitalist Physician Discharge Summary Pt: Carline Escobar AGE/SEX: 42 y.o. female ROOM: [facility] PCP: BART BA : 1970 Admit date: 03/21/2013 Discharge date and time: 03/24/2013 10:52 AM Admitting Physician: Luis Birmingham MD Discharge Physician: Arcadio Cobian MD Consults: DR. Strickland Primary Discharge Diagnoses: Bacterial pneumonia, unspecified [482.9] Hypoxemia [799.02] Hyperkalemia [276.7] Diabetes mellitus type II [250.00] Hyperlipidemia [272.4] Hyponatremia [276.1] Tobacco abuse [305.1] Hypertension [401.9] DM (diabetes mellitus) [250.00] RA (rheumatoid arthritis) [714.0] Bipolar 2 disorder [296.89] COPD exacerbation [491.21] Current smoker [305.1] Elevated brain natriuretic peptide (BNP) level [790.99] Secondary Discharge Diagnoses: HTN Discharged Condition: stable Significant Diagnostic Studies: Ct Chest Without Contrast 03/22/2013 1. Scattered multifocal areas of scarring or atelectasis throughout the lungs. 2. There are 2 cystic/cavitary lesions demonstrated throughout the lung, one in the right u pper and the second in the right lower lobe as discussed above. The findings may reflect sti gmata of prior pneumonia or septic emboli with necrosis. An underlying cavitary mass lesion is not entirely excluded and a followup CT is recommended in 3 months. 3. There is an indet erminate nodule in the left upper lobe. Given the location, this would be difficult to biops y. Followup examination could be performed in 3-6 months as well. 4. Potential left thyroid nodule. If indicated, further evaluation could be performed with dedicated ultrasound. Claudette ctronically signed by Neno Ellison MD on 03/22/2013 7:22 AM Nm Myocardial Perfusion Spect (stress And Rest) 03/23/2013 1. Negative for ischemia or infarct. 2. Left ventricular ejection fraction is calculated at 60%. Xr Chest Ap Portable 03/21/2013 1. Mild infiltrate in the right lung base. There is mild elevation of the right diaphragm, suggesting a component of atelectasis. 2. Mild perihilar atelectasis or scarrin g. Echo Cardiac Adult Complete 03/22/2013 1. Good pump, moderate pulmonary hypertension. HPI and Hospital Course: 42 YO F with PMHof HTN, DM2, RA came with SOB and and had elevated Trop[ with possible NSTE SC and possible underlying PNA Bacterial pneumonia, unspecified with Hypoxemia and Acute COPD exacerbation: Her SOB improved today. Continue Nebs, she had Zosyn for 3 Day and will continue Levaquin for 5 days Advise about smoking active as well as passive. ARF (acute renal failure): Resolved Hyponatremia: Improved Hyperkalemia: Resolved DM Type 2: On OHA Hyperlipidemia: Continue lipid lowering agent. Benign HTN: Better todayContinue home BP meds Smoking: She was counseled about smoking and will place Nicotine patch PRN . Will need Repeat CT [address] in 2 to 3 months RA (rheumatoid arthritis): On Azathiprine Abnormal LFTs: Improved and it could be from meds Hypomagnesemia Will replace before she goes She Had no CP, SOB, N/V, Diarrhea, Abdominal pain or LARA. No constipation or change in bowel habits. No orthopnea or PND. Appetite is good without abdominal bloating. No cough or fever . No dizziness, lightheadedness or any symptoms suggestive of stroke. Discharge Vitals: Filed Vitals: 03/24/13 0430 03/24/13 0500 03/24/13 0735 03/24/13 1044 BP: 149/90 149/90 139/80 Pulse: 72 74 75 76 Temp: 97.8 F (36.6 C) 97.2 F (36.2 C) TempSrc: Oral Axillary Resp: 20 18 18 17 Height: Weight: 98 kg (216 lb 0.8 oz) SpO2: 94% 94% 93% 92% Discharge Exam: Constitutional: Alert and oriented to person, place, and time. Appears well-developed and w ell-nourished. Cardiovascular: Normal rate, regular rhythm, normal heart sounds with S1 and S2 and intact distal pulses. Exam reveals no gallop and no friction rub. No murmur heard. Pulmonary/Chest: Effort normal and breath sounds normal. No stridor. No respiratory distres s. no wheezes. no rales. exhibits no tenderness. Abdominal: Soft. Bowel sounds are normal. exhibits no distension and no mass. There is no t enderness. There is no rebound and no guarding. Musculoskeletal: Normal range of motion.exhibits no tenderness. exhibits no edema. Neurological: Alert and oriented to person, place, and time. Has normal reflexes. display s normal reflexes. No cranial nerve deficit. Exhibits normal muscle tone. Coordination norm al. Skin: Skin is warm and dry. No rash noted. No erythema. No pallor. Psychiatric: Has a normal mood and affect. Behavior is normal. Judgment normal. LABS: Lab 03/24/13 0403 03/22/1323503/21/132057 WBC 8.7 7.9 10.3 HGB 13.4 13.3 14.0 HCT 39.3 39.2 41.4 PLT 262 298 273 NEUTOPHILPCT 48.3 75.9 -- MONOPCT 16.5 13.2 -- Lab 03/24/13 0403 03/23/13 1208 03/22/13 02303/21/132057 NA 130* 136 126* -- K 4.0 4.2 5.0* -- CL 94* 97* 96* -- CO2 29 31 23 -- BUN 12 10 19 -- CREATININE 0.56 0.62 0.91 -- CALCIUM -- -- -- -- PROT 6.3 -- 6.6 7.1 BILITOT 0.4 -- 0.4 0.6 ALKPHOS -- -- -- -- ALT 42 -- 84* 111* AST 20 -- 75* 135* GLUCOSE -- -- -- -- Lab 03/24/13 0403 03/22/1323503/21/132057 MG 1.2* 1.7 1.2* Lab 03/22/13 0903/22/1323503/21/132057 APTT 26 28 24 INR -- 1.0 1.0 PTT -- -- -- Lab 03/22/1391503/22/1323503/21/132057 CKTOTAL 117 150 241* TROPONINI 0.434* 0.414* 0.403* TROPONINT -- -- -- CKMBINDEX 11.8 12.9 12.0 Disposition: Home Patient Instructions: Medication List As of 03/24/2013 10:52 AM START taking these medications aspirin 81 MG EC tablet Take 1 tablet by mouth daily with breakfast. fluticasone-salmeterol 250-50 MCG/DOSE Commonly known as: ADVAIR Inhale 1 puff into the lungs 2 (two) times daily. ipratropium-albuterol 0.5-2.5 mg/3mL Commonly known as: DUO-NEB Take 3 mLs by nebulization 4 (four) times daily as needed. levofloxacin 500 MG tablet Commonly known as: LEVAQUIN Take 1 tablet by mouth daily. Nebulizer (biomedical specialist) Dispense and provide instruction as needed. CONTINUE taking these medications azaTHIOprine 50 MG tablet Commonly known as: IMURAN BUTALBITAL COMPOUND/ASA 50-325-40 MG per tablet Generic drug: yamonpegqz-mipuagx-kgtprsrq gabapentin 600 MG tablet Commonly known as: NEURONTIN HYDROcodone-acetaminophen 7.5-325 MG per tablet Commonly known as: NORCO Ibuprofen 200 MG Caps levothyroxine 300 MCG tablet Commonly known as: SYNTHROID, LEVOTHROID LORazepam 0.5 MG tablet Commonly known as: ATIVAN metFORMIN 500 MG tablet Commonly known as: GLUCOPHAGE metoprolol 25 MG tablet Commonly known as: LOPRESSOR ranitidine 150 MG tablet Commonly known as: ZANTAC simvastatin 20 MG tablet Commonly known as: ZOCOR venlafaxine 75 MG tablet Commonly known as: EFFEXOR VENTOLIN HFA IN VITAMIN D PO ziprasidone 80 MG capsule Commonly known as: GEODON STOP taking these medications enoxaparin 150 MG/ML injection Where to get your medications 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 You may get these medications from any pharmacy. aspirin 81 MG EC tablet fluticasone-salmeterol 250-50 MCG/DOSE ipratropium-albuterol 0.5-2.5 mg/3mL levofloxacin 500 MG tablet Nebulizer (biomedical specialist) Activity: activity as tolerated Diet: regular diet Wound Care: not applicable Follow-up with PCP 1 week Discharge took more than 35 minutes, to include final examination, discussion of admission, and preparation of prescriptions, instructions for ongoing care, follow up and dictation of summary. Signed: ARCADIO COBIAN MD 03/24/2013 10:52 AM documented in this encount er Medications at Time of Discharge + + [...] + +---------+ + + | | Inhale 3 mLs into | | 0 | 03/24/20 | | | albuterol-ipratropiu | the lungs as needed. | | | 13 | 8 | | m (DUONEB) 2.5-0.5 | | | | | | | mg/3 mL SOLN | | | | | | + + + +---------+ + + | azaTHIOprine | Take 75 mg by mouth | | 0 | 09/22/19 | | | (AZASAN) 75 MG TABS | 2 times daily. | | | 12 | 8 | + + + +---------+ + + | | One tablet by mouth | | 0 | 10/08/19 | | | qruhrcpcbs-ikhxosa-k | every 6 hours as | | [...] documented as of this encounter Progress Notes Conversion Transaction, Provider Unknown - 03/24/2013 3:53 PM PSTFormatting of this note m ight be different from the original. Progress Notes by Bernardo Avery RN at 03/24/131552 Author: Bernardo Avery RN Service: (none) Author Type: Registered Nurse Filed: 03/24/131552 Date of Service: 03/24/131552 Status: Signed Spear Fisher: Bernardo Avery RN (Registered Nurse) Discharge instructions reviewed with pt and family. IV removed, cannula intact. No complain s, concerns or questions at this time. Discharged to home/self care per private vehicle. BERNARDO AVERY RN Ayanna Rodríguez MSW - 03/24/2013 3:05 PM PST Case Management by EMA Fishman at 03/24/13 7654 Author: EMA Fishman Service: (none) Author Type: Bus Dispatcher [place] Filed: 03/24/13 5891 Date of Service: 03/24/13 154 Status: Signed Spear Fisher: EMA Fishman (Bus Dispatcher [place]) 03/22/13 1100 Discharge Planning Evaluation Living Arrangements Spouse/significant other Support Systems Children Type of Residence Private residence Home Care Services No Anticipated Discharge Plan Post Acute Care Needs Durable Medical Equipment (new home 02 with RT to set up prior to dc. ) Met with: and discussed discharge planning, Pt is a 42 y.o., female Patient's PCP is: BART BA Patient's insurance: Medicaid. Coverage concerns: Not at this time. Medication coverage/concerns: not at this time. Community resources utilized / needed: [employer] for home 02 Assistance in transportation: family Identification of any specific education / training: Barriers to Discharge / Alternative housing needed: Awaiting portable 02 tank to transfer h ome with. Anticipated DCP: Home with new home 02 set up through RT therapies. AYANNA BERNARD onversion Transact ion, Provider Unknown - 03/24/2013 2:36 PM PSTFormatting of this note might be different fr om the original. Progress Notes by Crystal Dunaway RRT at 03/24/13 1436 Author: Crystal Dunaway RRT Service: (none) Author Type: Registered Respiratory Therap ist Filed: 03/24/13 1436 Date of Service: 03/24/13 1436 Status: Signed Spear Fisher: Crystal Dunaway RRT (Registered Respiratory Therapist) [facility] Department of Respiratory Halfway Oxygen Evaluation (Evaluation is valid for 48 hours once completed) Date: 03/24/2013 RT: CRYSTAL DUNAWAY Time: 2:36 PM Home O2 Eval at rest-Part 1 At rest & breathing room air is the patients SpO2 88% or lower? : Yes Lowest observed SpO2 at rest: 87 percent (87% at rest on room air) If yes amount of oxygen to keep SpO2 88% or higher at rest: 1 lpm (92% at rest with O2 @ 1 lpm via NC) Home O2 Eval during exercise-Part 2 With exercise & breathing room air is the patients SpO2 88% or lower? : Yes Lowest observed SpO2 with exercise: 89 percent ( 1 lpm NC) Liters per minute with exercise: 1 lpm Home O2 Eval Post Exercise - Part 3 O2 Saturation on Room Air Post Exercise: 89 % Liters per minute O2 to keep O2 Sat >88 Post Excercise: 1 lpm Home O2 Eval Comment Eval Comment: Patient wants In Home Medical HOME OXYGEN PROVIDER PREFERENCE PHONE FAX *NOTE* Provider must include liter flow, route of oxygen administration, frequency of use w ith duration of need in months on the prescription AND document patient s diagnosis. OXYGEN PRN IS NOT A VALID ORDER Physician Signature: Date: Time: Vinny Sidhu MD - 03/24/2013 8:47 AM PST Progress Notes by Vinny Strickland MD at 03/24/13846 Author: Vinny Strickland MD Service: (none) Author Type: Physician Filed: 03/24/13848 Date of Service: 03/24/13846 Status: Signed Spear Fisher: Vinny Strickland MD (Physician) Nuc images reviewed, they are normal. I think small troponin elevation was not due to an SC, but to hypoxia from respiratory issu es. She also does not have CHF. Will sign off. I did discuss the advisability of quitting smoking. iMriam Burden MD - 03/23/2013 6:53 PM PSTFormatting of this note might be different from the origin al. Progress Notes by Pedro Hester MD at 03/23/131852 Author: Pedro Hester MD Service: Nephrology Author Type: Physician Filed: 03/23/131907 Date of Service: 03/23/131852 Status: Signed Spear Fisher: Pedro Hester MD (Physician) PCP : BART BA LOS: 2 days Carline Escobar is a 42 y.o. female followed for RICHARD, hyponatremia, hyperkalemia in setting of volume overload. Interval history: Carline Escobar feels 'much better' today. Indicated taking care of her own meals at home (with significant intake of processed and pr e made foods) likely source of excessive salt intake and cause of fluid overload. Overnight events: No fever, chills sweats. No nausea, vomiting or diarrhea. No shortness or breath, chest catalina n, cough. No dysuria, urgency, frequency, gross hematuria, urinary hesitancy. ROS: As in History of Present Illness. 7 area ROS was done and was otherwise negative. Examination: APPEARANCE: Carline Escobar is alert awake oriented sitting up in bed.. Morbidly obese. VITALS: Reviewed as listed. HEENT: PERRLA. Non-icteric sclera.No oropharyngeal erythema. Buccal mucosa moist. No JV D or thyromegaly. LUNGS: Minimally reduced AE at bases. HEART: S1 normal, S2 normally split, no pericardial rub .No murmur. ABDOMEN: Soft, no tenderness. Bowel sounds present. No organomegaly or bruits. EXTREMITIES: No LE edema. No cyanosis or clubbing. Peripheral pulses palpable. Deformitie s both hands from RA. SKIN: Warm to touch. No rash or ecchymosis. Healed wounds both ankles. NEUROLOGIC: Alert awake oriented... BACK: No CVA tenderness. The following portions of the patient's history were reviewed and updated as appropriate: l aboratory data, radiologic studies, allergies, current medications, and problem list. Past m edical, surgical, social, and family history was also reviewed. Past history summarized as a oziel. Scheduled Medications amLODIPine 5 mg Oral Daily aspirin 325 mg Oral Daily with breakfast azaTHIOprine 75 mg Oral Daily denture adhesive dental QAM AC eucerin Topical BID gabapentin 300 mg Oral TID insulin aspart 0-10 Units Subcutaneous TID AC insulin aspart 0-5 Units Subcutaneous Nightly insulin glargine 10 Units Subcutaneous Nightly insulin glargine 5 Units Subcutaneous QAM ipratropium-albuterol 3 mL Nebulization Q6H levothyroxine 150 mcg Oral QAM AC metoprolol 25 mg Oral BID nicotine 1 patch Transdermal Daily piperacillin-tazobactam 3.375 g Intravenous Q8H ranitidine 150 mg Oral BID simvastatin 20 mg Oral Nightly sodium chloride 10 mL Intravenous Q8H venlafaxine 75 mg Oral TID ziprasidone 80 mg Oral BID WC Continuous Infusions dextrose PRN Medications acetaminophen, acetaminophen, adenosine, cadexomer iodine, dextrose, dextrose, dextrose, gl ucagon, glucagon, hydrALAZINE, HYDROcodone-acetaminophen, labetalol, levalbuterol, LORazepam , nitroGLYCERIN, ondansetron, ondansetron, polyethylene glycol Allergy: Allergies Allergen Reactions Azithromycin Rash Lamotrigine Rash Tape (Adhesive Tape) Other (See Comments) Skin sensitivity Vital Signs: BP 179/90 | Pulse 84 | Temp 98.2 F (36.8 C) (Oral) | Resp 20 | Ht 1.65 m (5' 4.96") | W t 99.2 kg (218 lb 11.1 oz) | BMI 36.44 kg/m2 | SpO2 93% | ? No I&O Detailed Table: I/O last 3 completed shifts: In: 1828.9 [P.O.:1200; I.V.:628.9] Out: 9140 [Urine:9140] Weight change: -4.674 kg (-10 lb 4.9 oz) Hemodynamics Last 24hrs: Principal Problem: *NSTEMI (non-ST elevated myocardial infarction) Active Problems: Bacterial pneumonia, unspecified COPD exacerbation Elevated brain natriuretic peptide (BNP) level ARF (acute renal failure) Hyponatremia Hyperkalemia Diabetes mellitus type II Hypertension Bipolar 2 disorder Current smoker RA (rheumatoid arthritis) Hypoxemia Hyperlipidemia Abnormal LFTs Assessment and Recommendations: Ms. Escobar is a 42 y.o. female patient with Nonoliguric RICHARD Stage 2 likely secondary to hemo dynamic instability with some degree of decompensated CHF in the setting of URI with signifi cant risk factors of longstanding DM2/HTN/Dyslipidemia/ongoing tobacco abuse/morbid obesity with hypoventilation syndrome. This has been further completed by ibuprofen use. Kidney function improving with diuresis The risk of progression of kidney disease and/or acute insults resulting in faster progress ion and/or need for renal replacement therapy in the future remains. 03/23/13 Blood pressure not at target level. Afebrile. Nonoliguric with urine output of 5.94 L in ne gative balance of 7.3 L overall. Sodium normal at 136 increasing from 126 over 24-hour perio d. Potassium down to 4.2 from 5. Kidney function normal creatinine of 0.62. Stress test done t urmila as per plan. RENAL FUNCTION: Normal VOLUME STATUS: Close to euvolemic. Wt Readings from Last 3 Encounters: 03/23/13 99.2 kg (218 lb 11.1 oz) BP: On the higher side. . BP Readings from Last 3 Encounters: 03/23/13 179/90 Acid base/Electrolyte management: Respiratory acidosis Hyponatremia, resolved Hyperkalemia, borderline, resolved Hypomagnesemia Hyponatremia most likely secondary to decompensated congestive heart failure in the setting of significant COPD with some degree of SIADH as reflected by inappropriately high urine os molality in the setting of hyponatremia. Low urine sodium likely reflect avid sodium retention in the setting of decompensated diast olic congestive heart failure. Lab data evaluation: Lab Results Component Value Date BUN 10 03/23/2013 CREATININE 0.62 03/23/2013 EGFR >60 03/23/2013 NA 136 03/23/2013 K 4.2 03/23/2013 CL 97* 03/23/2013 CO2 31 03/23/2013 CA 9.6 03/23/2013 PHOS 3.3 03/22/2013 MG 1.7 03/22/2013 ALB 3.8 03/22/2013 HGB 13.3 03/22/2013 Component Value Date/Time CREATININE 0.62 03/23/2013 1208 CREATININE 0.91 03/22/2013 0236 CREATININE 1.13* 03/21/2013 2058 Lab Results Component Value Date CREATININE 0.62 03/23/2013 CREATININE 0.91 03/22/2013 CREATININE 1.13* 03/21/2013 EGFR >60 03/23/2013 EGFR >60 03/22/2013 EGFR 56* 03/21/2013 Lab Results Component Value Date K 4.2 03/23/2013 K 5.0* 03/22/2013 K 5.1* 03/21/2013 . Lab Results Component Value Date NA 136 03/23/2013 NA 126* 03/22/2013 NA 124* 03/21/2013 Recommendations: Would need to be on strict 1.5 L fluid restriction, 2 gm Na restriction, 1 gm K restrict ion. Avoid CARMELITA/ARB for BP control for now. No NSAID use. At this time kidney function is normal and I would sign off. At the discretion of her PCP I would be happy to follow up with her in office if needed. Dr. Salinas will be on nephrology service and will be available for consultation if needed. Thank you for the consultation. PEDRO HESTER MD 03/23/2013 Discussed with the primary team, Dr. Cobian.03/23/13 Seen earlier in the day and charting completed later after rounds. Dictation software, [employer], used which may contain error for similar sounding words even af ter review. Personal communication requested for any clarification. Prognosis guarded in view of multiple comorbid illnesses and RICHARD including but not limited to CKD and . Aj Arcadio Martinez - 03/23 11:46 AM PST Progress Notes by Arcadio Cobian MD at 03/23/13 1146 Author: Arcadio Cobian MD Service: Hospitalist Author Type: Physician Filed: 03/23/13 115 Date of Service: 03/23/13 1146 Status: Signed Spear Fisher: Arcadio Cobian MD (Physician) [facility] Service: Hospitalist Progress Note Pt: Carline Escobar AGE/SEX: 42 y.o. female ROOM: [address] [place] [address] : 1970 PCP: BART BA ADMIT DATE: 03/21/2013 TODAY'S DATE: 03/23/2013 Hospital Day/Hospital Course: LOS: 2 days 42 YO F with PMHof HTN, DM2, RA came with SOB and and had elevated Trop[ with possible NSTE SC and possible underlying PNA SUBJECTIVE: Patient seen and examine. Complaint of SOB improved. No chest pain, LARA. No cough on recumbe ncy. Had no orthopnea or PND. No Abdominal pain, N/V or fever. Still feeling tired and fatig ued. No dizziness or lightheadedness. Scheduled Medications: aspirin 325 mg Oral Daily with breakfast azaTHIOprine 75 mg Oral Daily denture adhesive dental QAM AC gabapentin 300 mg Oral TID insulin aspart 0-10 Units Subcutaneous TID AC insulin aspart 0-5 Units Subcutaneous Nightly insulin glargine 10 Units Subcutaneous Nightly insulin glargine 5 Units Subcutaneous QAM ipratropium-albuterol 3 mL Nebulization Q6H levothyroxine 150 mcg Oral QAM AC metoprolol 25 mg Oral BID nicotine 1 patch Transdermal Daily piperacillin-tazobactam 3.375 g Intravenous Q8H ranitidine 150 mg Oral BID simvastatin 20 mg Oral Nightly sodium chloride 10 mL Intravenous Q8H venlafaxine 75 mg Oral TID ziprasidone 80 mg Oral BID WC Continuous Infusions dextrose PRN Medications acetaminophen, acetaminophen, dextrose, dextrose, dextrose, glucagon, glucagon, hydrALAZINE , HYDROcodone-acetaminophen, labetalol, levalbuterol, LORazepam, nitroGLYCERIN, ondansetron, ondansetron, polyethylene glycol Allergy: Allergies Allergen Reactions Azithromycin Rash Lamotrigine Rash Tape (Adhesive Tape) Other (See Comments) Skin sensitivity OBJECTIVE: Vitals: Patient Vitals for the past 24 hrs: BP Temp Temp src Pulse Resp SpO2 Weight 03/23/13 1107 - - - 80 20 100 % - 03/23/13 1100 170/97 mmHg 98 F (36.7 C) Oral 76 20 100 % - 03/23/13 1057 - - - 80 20 95 % - 03/23/13 1000 147/78 mmHg - - 78 - 96 % - 03/23/13 0530 175/94 mmHg - - 100 - 96 % - 03/23/13 0511 - - - 94 20 97 % - 03/23/13 0343 165/80 mmHg - - 86 - 92 % - 03/23/13 0330 192/93 mmHg - - 82 20 95 % - 03/23/13 0323 193/109 mmHg 98.6 F (37 C) Axillary 88 20 95 % 99.2 kg (218 lb 11.1 oz) 03/22/13 2336 - - - - - 92 % - 03/22/13 2330 161/92 mmHg 98.3 F (36.8 C) Axillary 87 18 83 % - 03/22/13 2158 - - - 94 - 94 % - 03/22/137 - - - 90 18 96 % - 03/22/132016 137/85 mmHg 98.2 F (36.8 C) Axillary 90 18 89 % - 03/22/13 1800 138/81 mmHg - - 94 - 91 % - 03/22/13 1700 165/82 mmHg - - 90 - - - 03/22/13 1640 178/102 mmHg 97.8 F (36.6 C) Axillary 88 20 93 % - 03/22/13 1549 - - - - - 95 % - 03/22/13 1543 - - - 79 22 - - 03/22/13 1533 - - - 80 - 91 % - 03/22/13 1300 154/114 mmHg - - 78 - - - 03/22/13 1200 161/86 mmHg - - 80 - - - I&O Detailed Table: Intake/Output Summary (Last 24 hours) at 03/23/13 1146 Last data filed at 03/23/13 0944 Gross per 24 hour Intake 1798.86 ml Output 5700 ml Net -3901.14 ml Patient Vitals for the past 96 hrs: Weight 03/23/13 0323 99.2 kg (218 lb 11.1 oz) 03/22/13 0440 104 kg (229 lb 4.5 oz) 03/21/13 2248 104 kg (229 lb 4.5 oz) 03/21/13 1922 103.874 kg (229 lb) Hemodynamics Last 24hrs: Physical Examination: Constitutional: Alert and oriented to person, place, and time. Appears well-developed and w ell-nourished. HEENT: Neck supple, no JVD, non icteric sclera. Cardiovascular: Normal rate, regular rhythm, normal heart sounds with S1 and S2, and intact distal pulses. Exam reveals no gallop and no friction rub. No murmur heard. Pulmonary/Chest: Effort normal and breath sounds normal. No stridor. No respiratory distres s. no wheezes. no rales. exhibits no tenderness. Abdominal: Soft. Bowel sounds are normal. exhibits no distension and no mass. There is no t enderness. There is no rebound and no guarding. Extremeties/Musculoskeletal: Normal range of motion.exhibits no tenderness. exhibits no ed mg. Neurological: Alert and oriented to person, place, and time. Has normal reflexes. No cran ial nerve deficit. Exhibits normal muscle tone. Coordination normal. Skin: Skin is warm and dry. No rash noted. No erythema. No pallor. Psychiatric: Has a normal mood and affect. Behavior is normal. Judgment normal. LABS: Lab 03/22/1323503/21/132057 WBC 7.9 10.3 HGB 13.3 14.0 HCT 39.2 41.4 PLT 298 273 NEUTOPHILPCT 75.9 -- MONOPCT 13.2 -- Lab 03/22/1323503/21/132057 NA 126* 124* K 5.0* 5.1* CL 96* 93* CO2 23 19* BUN 19 23 CREATININE 0.91 1.13* CALCIUM -- -- PROT 6.6 7.1 BILITOT 0.4 0.6 ALKPHOS -- -- ALT 84* 111* AST 75* 135* GLUCOSE -- -- Phosphorus: Lab Results Component Value Date PHOS 3.3 03/22/2013 Lab 03/22/13 0236 03/21/132057 MG 1.7 1.2* Lab 03/22/13 0916 03/22/13 0236 03/21/132057 APTT 26 28 24 INR -- 1.0 1.0 PTT -- -- -- Lab 03/21/132057 TSH 0.17* T3FREE -- FREET4 -- Lab 03/22/13 0916 03/22/13 0236 03/21/132057 CKTOTAL 117 150 241* TROPONINI 0.434* 0.414* 0.403* TROPONINT -- -- -- CKMBINDEX 11.8 12.9 12.0 PROBLEM LIST Principal Problem: *NSTEMI (non-ST elevated myocardial infarction) Active Problems: Bacterial pneumonia, unspecified Hypoxemia COPD exacerbation Elevated brain natriuretic peptide (BNP) level ARF (acute renal failure) Hyponatremia Hyperkalemia Diabetes mellitus type II Hyperlipidemia Hypertension Bipolar 2 disorder Current smoker RA (rheumatoid arthritis) Abnormal LFTs Hypomagnesemia ASSESSMENT & PLAN 42 YO F with PMHof HTN, DM2, RA came with SOB and and had elevated Trop[ with possible NSTE SC and possible underlying PNA NSTEMI (non-ST elevated myocardial infarction): Though Trop is slightly elevated but Doubt she had real SC? I DW Dr. Strickland and will do st ress test tomorrow. continue with ASA/Statin and BB. Bacterial pneumonia, unspecified with Hypoxemia and Acute COPD exacerbation: Her SOB improved today. Continue Nebs, will continue with Zosyn day#3. Advise about smoking active as well as passive. Blood culture for Temp more than 100.4F Sputum culture ARF (acute renal failure): Resolved Hyponatremia: Will follow BMP from today Hyperkalemia: I will hole kayexalate at this time DM Type 2: Not well controlled. Will continue Lantus for now. with Insulin sliding scale Will follow finger stick and adjust insuline accordingly Hyperlipidemia: Continue lipid lowering agent. Low cholesterol diet. Daily exercise. Dietary education Benign HTN: On higher side and I will add Norvasc. Continue home BP meds Salt restriction to less than 2 g/day Will adjust BP meds according to BP readings Smoking: She was counseled about smoking and will place Nicotine patch PRN RA (rheumatoid arthritis): On Azathiprine Abnormal LFTs: Improved and it could be from meds Hypomagnesemia Improved ARCADIO COBIAN MD, FACP 03/23/2013 11:46 AM inny Strickalnd MD - 03/23/2013 8:49 AM PST Progress Notes by Vinny Strickland MD at 03/23/13 0849 Author: Vinny Strickland MD Service: (none) Author Type: Physician Filed: 03/23/13 0852 Date of Service: 03/23/13 0849 Status: Signed Spear Fisher: Vinny Strickland MD (Physician) No complaints. Mildly hypertensive and tacchycardic. Troponin static at .4, not sure of etiology. Given multiple risk factors, would do stress when respiratory status improved. Still on mas k to keep sats up. Echo with good LV function. Dyspnea is not cardiac. Violeta Rocha - 03/22/2013 1:06 PM PST Progress Notes by Arcadio Cobian MD at 03/22/13 1306 Author: Arcadio Cobian MD Service: Hospitalist Author Type: Physician Filed: 03/22/13 1319 Date of Service: 03/22/13 1306 Status: Signed Spear Fisher: Arcadio Cobian MD (Physician) [facility] Service: Hospitalist Progress Note Pt: Carline Escobar AGE/SEX: 42 y.o. female ROOM: 4447/4447-1 : 1970 PCP: BART BA ADMIT DATE: 03/21/2013 TODAY'S DATE: 03/22/2013 Hospital Day/Hospital Course: LOS: 1 day 42 YO F with PMHof HTN, DM2, RA came with SOB and and had elevated Trop[ with possible NSTE SC and possible underlying PNA SUBJECTIVE: Patient seen and examine. Complaint of SOB is still theer. No chest pain, LARA. No cough on recumbency. Had no orthopnea or PND. No Abdominal pain, N/V or fever. Still feeling tired an d fatigued. No dizziness or lightheadedness. Scheduled Medications: aspirin 324 mg Oral Once aspirin 325 mg Oral Daily with breakfast azaTHIOprine 75 mg Oral Daily denture adhesive dental QAM AC gabapentin 300 mg Oral TID insulin aspart 0-10 Units Subcutaneous TID AC insulin aspart 0-5 Units Subcutaneous Nightly insulin glargine 10 Units Subcutaneous Nightly insulin glargine 5 Units Subcutaneous QAM ipratropium-albuterol 3 mL Nebulization Q6H levothyroxine 150 mcg Oral QAM AC magnesium sulfate 2 g Intravenous Once metoprolol 25 mg Oral BID nicotine 1 patch Transdermal Daily piperacillin-tazobactam 4.5 g Intravenous Once Followed by piperacillin-tazobactam 3.375 g Intravenous Q8H pneumococcal 23-valent vaccine 0.5 mL Intramuscular Once Immunization ranitidine 150 mg Oral BID simvastatin 20 mg Oral Nightly sodium chloride 10 mL Intravenous Q8H venlafaxine 75 mg Oral TID ziprasidone 80 mg Oral BID WC DISCONTD: insulin glargine 5 Units Subcutaneous Nightly DISCONTD: levothyroxine 300 mcg Oral QAM AC DISCONTD: magnesium sulfate 3 g Intravenous Once Continuous Infusions dextrose DISCONTD: heparin in D5W 50 units/mL Stopped (03/22/13 1051) DISCONTD: sodium chloride Stopped (03/21/13 2153) PRN Medications acetaminophen, acetaminophen, dextrose, dextrose, dextrose, glucagon, glucagon, hydrALAZINE , HYDROcodone-acetaminophen, labetalol, levalbuterol, LORazepam, nitroGLYCERIN, ondansetron, ondansetron, polyethylene glycol, DISCONTD: heparin (porcine), DISCONTD: heparin (porcine) Allergy: Allergies Allergen Reactions Azithromycin Rash Lamotrigine Rash Tape (Adhesive Tape) Other (See Comments) Skin sensitivity OBJECTIVE: Vitals: Patient Vitals for the past 24 hrs: BP Temp Temp src Pulse Resp SpO2 Height Weight 03/22/13 1118 164/94 mmHg 98.4 F (36.9 C) Oral 82 20 93 % - - 03/22/13 0953 - - - 77 - 99 % - - 03/22/13 0942 - - - 76 22 94 % - - 03/22/13 0751 154/90 mmHg 98.4 F (36.9 C) Oral 82 18 93 % - - 03/22/13 0750 154/90 mmHg - - - - - - - 03/22/13 0648 174/92 mmHg - - 82 - 93 % - - 03/22/13 0627 181/85 mmHg - - - - - - - 03/22/13 0547 164/88 mmHg - - - - 96 % - - 03/22/13 0500 149/76 mmHg - - - - 95 % - - 03/22/13 0440 173/95 mmHg 98.7 F (37.1 C) Oral 77 18 98 % - 104 kg (229 lb 4.5 oz) 03/22/13 0018 145/75 mmHg - - 82 - 93 % - - 03/21/138 184/107 mmHg 98.1 F (36.7 C) Oral 78 20 95 % 1.65 m (5' 4.96") 104 kg ( 229 lb 4.5 oz) 03/21/13 2156 162/91 mmHg - - 81 16 92 % - - 03/21/13 2051 178/106 mmHg - - 83 20 93 % - - 03/21/131921 149/83 mmHg 98.3 F (36.8 C) Oral 85 18 93 % 1.651 m (5' 5") 103.874 kg (229 lb) I&O Detailed Table: Intake/Output Summary (Last 24 hours) at 03/22/13 1306 Last data filed at 03/22/13 1118 Gross per 24 hour Intake 300 ml Output 4140 ml Net -3840 ml Patient Vitals for the past 96 hrs: Weight 03/22/13 0440 104 kg (229 lb 4.5 oz) 03/21/13 2248 104 kg (229 lb 4.5 oz) 03/21/13 192 103.874 kg (229 lb) Hemodynamics Last 24hrs: Physical Examination: Constitutional: Alert and oriented to person, place, and time. Appears well-developed and w ell-nourished. HEENT: Neck supple, no JVD, non icteric sclera. Cardiovascular: Normal rate, regular rhythm, normal heart sounds with S1 and S2, and intact distal pulses. Exam reveals no gallop and no friction rub. No murmur heard. Pulmonary/Chest: Effort normal and breath sounds normal. No stridor. No respiratory distres s. no wheezes. no rales. exhibits no tenderness. Abdominal: Soft. Bowel sounds are normal. exhibits no distension and no mass. There is no t enderness. There is no rebound and no guarding. Extremeties/Musculoskeletal: Normal range of motion.exhibits no tenderness. exhibits no ed mg. Neurological: Alert and oriented to person, place, and time. Has normal reflexes. No cran ial nerve deficit. Exhibits normal muscle tone. Coordination normal. Skin: Skin is warm and dry. No rash noted. No erythema. No pallor. Psychiatric: Has a normal mood and affect. Behavior is normal. Judgment normal. LABS: Lab 03/22/1323503/21/132057 WBC 7.9 10.3 HGB 13.3 14.0 HCT 39.2 41.4 PLT 298 273 NEUTOPHILPCT 75.9 -- MONOPCT 13.2 -- Lab 03/22/1323503/21/132057 NA 126* 124* K 5.0* 5.1* CL 96* 93* CO2 23 19* BUN 19 23 CREATININE 0.91 1.13* CALCIUM -- -- PROT 6.6 7.1 BILITOT 0.4 0.6 ALKPHOS -- -- ALT 84* 111* AST 75* 135* GLUCOSE -- -- Phosphorus: Lab Results Component Value Date PHOS 3.3 03/22/2013 Lab 03/22/1323503/21/132057 MG 1.7 1.2* Lab 03/22/13 0916 03/22/1323503/21/132057 APTT 26 28 24 INR -- 1.0 1.0 PTT -- -- -- Lab 03/21/132057 TSH 0.17* T3FREE -- FREET4 -- Lab 03/22/13 0916 03/22/1323503/21/132057 CKTOTAL 117 150 241* TROPONINI 0.434* 0.414* 0.403* TROPONINT -- -- -- CKMBINDEX 11.8 12.9 12.0 PROBLEM LIST Principal Problem: *NSTEMI (non-ST elevated myocardial infarction) Active Problems: Bacterial pneumonia, unspecified Hypoxemia COPD exacerbation Elevated brain natriuretic peptide (BNP) level ARF (acute renal failure) Hyponatremia Hyperkalemia Diabetes mellitus type II Hyperlipidemia Hypertension Bipolar 2 disorder Current smoker RA (rheumatoid arthritis) Abnormal LFTs Hypomagnesemia ASSESSMENT & PLAN 42 YO F with PMHof HTN, DM2, RA came with SOB and and had elevated Trop[ with possible NSTE SC and possible underlying PNA NSTEMI (non-ST elevated myocardial infarction): Though Trop is slightly elevated but with all her risk factor that put her at NSTEMi for n ow. Since she is CP free will stop Heparin and continue with ASA/Statin and BB. Dr.Ravage gould ready seen her and will decide about stress test. I will also look for Echo Bacterial pneumonia, unspecified with Hypoxemia and Acute COPD exacerbation: She is still SOB but she remain Afebrile. Continue Nebs, will continue with Zosyn day#2. Advise about smoking active as well as passive. Blood culture for Temp more than 100.4F Sputum culture ARF (acute renal failure): Resolved Hyponatremia: Will follow Hyperkalemia: I will hole kayexalate at this time DM Type 2: Will continue Lantus with Insulin sliding scale Will follow finger stick and adjust insuline accordingly Hyperlipidemia: Continue lipid lowering agent. Low cholesterol diet. Daily exercise. Dietary education Benign HTN: Continue home BP meds Salt restriction to less than 2 g/day Will adjust BP meds according to BP readings Smoking: He was counseled about smoking and will place Nicotine patch PRN RA (rheumatoid arthritis): On Azathiprine Abnormal LFTs: Improved and it could be from meds Hypomagnesemia Improved ARCADIO COBIAN MD, FACP 03/22/2013 1:[address] - 2012 10:25 AM PST Progress Notes by Oxana Gamino RD at 03/22/13 1025 Author: Oxana Gamino RD Service: (none) Author Type: External Relations Manager Filed: 03/22/13 1037 Date of Service: 03/22/13 1025 Status: Signed Spear Fisher: Oxana Gamino RD (External Relations Manager) Elevated blood sugars, was 307 this am. Got 5 units Lantus last pm and this am, hs dose christian l increase to 10 units tonight. Also getting medium dose correction. A1c 8.2. Pt is surprised by this, states she had an A1c drawn last month at PCP office and it was 7.1. She does not check her blood sugars regularly because she hasn't needed too. Says they are usually high when she is not feeling well and checks then. Admits that she wa s not checking blood sugars prior to admit despite not feeling good. At home, she takes Metformin, 500mg BID. Pt states that she used to take Lantus and Novolog for her diabetes, but was able to come o ff it about 2 years ago. She says she hates needles and really does not want to go back on i nsulin. At A1c of 8.2, Metformin dose can be increased or could add a second oral DM med. Will cont to monitor BGs as insulin increases. If BGs remain elevated, may want to add 2-3 units mealtime Novolog. Recommend pt f/u with PCP for an A1c in next few weeks. Recommend checking blood sugars mor e frequently after d/c and f/u sooner with PCP if BGs remain elevated. Oxana Gamino RD, CDE, Inpatient External Relations Manager 03/22/2013 10:37 AM onversion Transaction , Provider Unknown - 03/21/2013 11:16 PM PST Progress Notes by Loni Hameed RPH at 03/21/132315 Author: Loni Hameed RPH Service: (none) Author Type: Pharmacist Filed: 03/21/132315 Date of Service: 03/21/132315 Status: Signed Spear Fisher: Loni Hameed RPH (Pharmacist) Clinical Pharmacy Note: Renal Monitoring & Extended Interval Zosyn Dosing Carline Pako 42 y.o. female Height: 165 cm Weight: 104 kg CREATININE: 1.13 mg/dL ABNORMAL (03/21/132057) Estimated creatinine clearance - Cockcroft-Gault CrCl: 78.3 mL/min No results found for this basename: BON Pharmacy dosing for renal function per Dr. [place]. Will begin Zosyn with loading dose of 4.5 g IV over 30 min, then 2 hours later 3.375 g IV Q 8H (each 3.375 g dose to be infused over 4 hours). Currently, there are no medications needing to be renally adjusted. Pharmacy will continue to monitor for changes in medication orders and in renal function and adjust accordingly. Loni Hameed, PharmD 03/21/2013 11:16 PM Siria ventura in this encounter Plan of Treatment +--------+---------+ + + + | Date | Type | Specialty | Care Team | Description | +--------+---------+ + + + | 06/19/ | Office | Neurology | Jimbo Samayoa MD | | | 2019 | Visit | | [address] | | | | | | [place] | | | | | | [phone] | | | | | | | | +--------+---------+ + + + | 07/26/ | Office | Pulmonology | Navdeep Grande, | | | 2020 | Visit | | [address] | | | | | | [place] | | | | | | [id number] | | | | | | | | +--------+---------+ + + + documented as of this encounter Procedures + +--------+ + + + | Procedure Name | Priori | Date/Time | Associated Diagnosis | Comments | | | ty | | | | + +--------+ + + + | NM MYOCARDIAL | Routin | 03/23/2013 | | Results for this | | PERFUSION MULT SPECT | e | 4:55 PM | | procedure are in the | | | | PST | | results section. | + +--------+ + + + | ECHO COMPLETE | Routin | 03/22/2013 | | Results for this | | | e | 10:10 AM | | procedure are in the | | | | PST | | results section. | + +--------+ + + + | CT CHEST WO CONTRAST | Routin | 03/22/2013 | | Results for this | | | e | 7:10 AM | | procedure are in the | | | | PST | | results section. | + +--------+ + + + | ECG 12 LEAD | Routin | 03/22/2013 | | Results for this | | | e | 6:45 AM | | procedure are in the | | | | PST | | results section. | + +--------+ + + + | XR CHEST 1 VIEW | Routin | 03/21/2013 | | Results for this | | | e | 8:57 PM | | procedure are in the | | | | PST | | results section. | + +--------+ + + + | ECG 12 LEAD | Routin | 03/21/2013 | | Results for this | | | e | 7:28 PM | | procedure are in the | | | | PST | | results section. | + +--------+ + + + documented in this encounter Results NM Myocardial Perfusion Mult SPECT (03/23/2013 4:55 PM PST) + + | Specimen | + + | | + + + + + | Impressions | Performed At | + + + | 1. Negative for ischemia or infarct. 2. Left ventricular | | | ejection fraction is calculated at 60%. | | + + + + + + | Narrative | Performed At | + + + | [facility] ESCOB[facility] DE MYOCARDIAL PERFUSION SPECT - STRESS AND REST | | | HISTORY: 42 years. Female. High blood pressure and shortness of | | | breath. TECHNIQUE: A same day protocol was used. For the | | | resting portion of the study the patient was injected intravenously | | | with 10.8 mCi technetium 99m Myoview. Gated SPECT imaging was | | | performed in the supine position. The patient was then | | | pharmacologically stressed using a adenosine protocol. The patient | | | received 55.49 mg of adenosine intravenously over four minutes.. The | | | patient was intravenously administered 41.5 mCi technetium 99m | | | Myoview. Gated SPECT images were acquired in the prone and supine | | | positions. The patient was imaged with the right arm down to the side. | | | COMPARISON: None. FINDINGS: Patchy areas of decreased | | | perfusion within the septal and inferior wall on supine rest images. | | | No perfusion abnormality on prone or supine stress images. Wall motion | | | is normal in all segments. The following functional data was | | | obtained: STRESS: End-diastolic volume: 114 mL End-systolic volume: | | | 45 mL Ejection fraction: 60% REST: End-diastolic volume: 99 mL | | | End-systolic volume: 36 mL Ejection fraction: 63% | | + + + + + | Procedure Note | + + | Demario, Rad Conversion - 12/09/2018 8:13 PM PDT [facility] MYOCARDIAL PERFUSION | | SPECT - STRESS AND REST HISTORY:42 years. Female. High blood pressure and shortness of | | breath. TECHNIQUE:A same day protocol was used. For the resting portion of the study | | the patient was injected intravenously with 10.8 mCi technetium 99m Myoview. Gated | | SPECT imaging was performed in the supine position. The patient was then | | pharmacologically stressed using a adenosine protocol. The patient received 55.49 mg of | | adenosine intravenously over four minutes.. The patient was intravenously administered | | 41.5 mCi technetium 99m Myoview. Gated SPECT images were acquired in the prone and | | supine positions. The patient was imaged with the right arm down to the side. | | COMPARISON:None. FINDINGS:Patchy areas of decreased perfusion within the septal and | | inferior wall on supine rest images. No perfusion abnormality on prone or supine stress | | images. Wall motion is normal in all segments. The following functional data was | | obtained:STRESS:End-diastolic volume: 114 mLEnd-systolic volume: 45 mLEjection fraction: | | 60%REST:End-diastolic volume: 99 mLEnd-systolic volume: 36 mLEjection fraction: 63% | | IMPRESSION: 1. Negative for ischemia or infarct.2. Left ventricular ejection fraction | | is calculated at 60%. | |FINDINGS: | |Patchy areas of decreased perfusion within the septal and inferior wall on supine rest imag es. No perfusion abnormality on prone or supine stress images. Wall motion is normal in all segments. | | | |The following functional data was obtained: | |STRESS: | |End-diastolic volume: 114 mL | |End-systolic volume: 45 mL | |Ejection fraction: 60% | |REST: | |End-diastolic volume: 99 mL | |End-systolic volume: 36 mL | |Ejection fraction: 63% | | | | | |IMPRESSION: | |1. Negative for ischemia or infarct. | |2. Left ventricular ejection fraction is calculated at 60%. | | | | | + + ECHO Complete (03/22/2013 10:10 AM PST) + + | Specimen | + + | | + + + + + | Impressions | Performed At | + + + | 1. Good pump, moderate pulmonary hypertension. | | + + + + + + | Narrative | Performed At | + + + | Patient Name: CARLINE ESCOBAR Date of : 1970 | | | Performing Physician: Vinny Strickland | | | | | | INDICATIONS ACUTE SC PNEUMONIA, COPD CONCLUSIONS | | | 1. Good pump, moderate pulmonary hypertension. | | | FINDINGS -------- ECG rhythm: Sinus rhythm. Study: A 2-dimensional | | | transthoracic echocardiogram with m-mode, spectral and color flow | | | Doppler was perfomed. Study: This was a technically adequate study | | | with suboptimal apical and subcostal views. Left Ventricle: Left | | | ventricular systolic function is hyperdynamic with an estimated EF of | | | >70%. Left Ventricle: The left ventricle cavity size is normal. Left | | | Ventricle: Left ventricular wall thickness is normal. Left | | | Ventricle: The diastolic filling pattern is normal for the age of the | | | patient. Right Ventricle: The right ventricle is mildly enlarged | | | measuring between 3.4 - 3.7 cm. Left Atrium: The left atrium is | | | normal in size. Right Atrium: The right atrium is normal in size. | | | Aortic Valve: Aortic valve is trileaflet and is mildly thickened. | | | Aortic Valve: There is no evidence of aortic regurgitation. Aortic | | | Valve: There is no evidence of aortic stenosis. Mitral Valve: Mild | | | mitral regurgitation is present. Mitral Valve: Mild mitral annular | | | calcification present. Mitral Valve: Mild thickening of the anterior | | | mitral valve leaflet. Mitral Valve: There is mild thickening of the | | | posterior mitral valve leaflet. Tricuspid Valve: [id number] | | | tricuspid regurgitation present. Tricuspid Valve: There is moderate | | | pulmonary hypertension. Tricuspid Valve: The right ventricular | | | systolic pressure (pulmonary artery systolic pressure), as measured by | | | Doppler, is {RVSP}. Pulmonic Valve: Pulmonic valve appears | | | structurally normal. Pulmonic Valve: Trace pulmonic regurgitation. | | | Pericardium: There is a trivial pericardial effusion present. | | | IVC/Hepatic Veins: The IVC is normal size (1.5-2.5cm) and collapses | | | >50% with sniff, consistent with central venous pressures of 5-10mmHg. | | | Thrombus: No clot visualized Septum: Mobile interatrial septum. | | | MEASUREMENTS LA Major: 4.31 cm EDV(Teich): | | | 94.63 ml IVSd: 1.04 cm LVIDd: 4.54 cm LVPWd: 0.75 cm LVOT | | | Diam: 2.23 cm %FS: 36.71 % EF(Teich): 66.63 % ESV(Teich): | | | 31.57 ml IVSs: 1.19 cm LVIDs: 2.87 cm LVPWs: 1.21 cm | | | SV(Teich): 63.06 ml RA Major: 4.31 cm RVIDd: 3.51 cm LAAs | | | A2C: 17.11 cm2 LAESV A-L A2C: 55.22 ml LALs A2C: 4.50 cm | | | Ao Diam: 3.51 cm AV Cusp: 2.42 cm LA Diam: 4.02 cm LA/Ao: | | | 1.14 %FS: 33.70 % EDV(Teich): 115.90 ml EF(Teich): | | | 62.30 % ESV(Teich): 43.69 ml IVSd: 0.89 cm IVSs: 1.28 cm | | | LVIDd: 4.95 cm LVIDs: 3.28 cm LVPWd: 0.89 cm LVPWs: | | | 1.50 cm SV(Teich): 72.21 ml D-E [place]: 1.51 cm E-F [place]: | | | 0.07 m/s EPSS: 0.73 cm IVC diameter: 2.47 cm IVC | | | collapse: 1.11 cm IVC % collapse: 52.36 % HR: 78.78 BPM AV | | | maxP.53 mmHg AV meanP.92 mmHg AV Vmax: 1.46 m/s | | | AV Vmean: 1.06 m/s AV VTI: 33.32 cm VIKRAM Vmax: 3.14 cm2 VIKRAM | | | (VTI): 2.80 cm2 LVCI Dopp: 3.45 l/minm2 LVCO Dopp: 7.15 | | | l/min HR: 76.55 BPM LVOT maxP.44 mmHg LVOT meanPG: | | | 2.76 mmHg LVSI Dopp: 45.15 ml/m2 LVSV Dopp: 93.47 ml LVOT | | | Vmax: 1.16 m/s LVOT Vmean: 0.77 m/s LVOT VTI: 23.77 cm | | | MCO: 421.44 ms MV A Manjeet: 0.98 m/s MV DecT: 133.38 ms MV E | | | Manjeet: 0.88 m/s MV E/A Ratio: 0.90 MV PHT: 49.80 ms MVA By | | | PHT: 4.41 cm2 MV A Dur: 125.69 ms Septal e': 0.06 m/s | | | Septal E/e': 13.21 Lateral e': 0.11 m/s Lateral E/e': 7.97 | | | P Vein A: 0.23 m/s P Vein A Dur: 81.33 ms P Vein D: 0.40 | | | m/s P Vein S/D Ratio: 1.14 P Vein S: 0.46 m/s HR: 77.65 | | | BPM PV maxP.19 mmHg PV meanP.17 mmHg PV Vmax: 0.74 | | | m/s PV Vmean: 0.51 m/s PV VTI: 16.59 cm TR maxP.61 | | | mmHg TR Vmax: 3.55 m/s TV A Amnjeet: 0.73 m/s TV Dec [place]: | | | 6.25 m/s2 TV Dec Time: 121.02 ms TV E Manjeet: 0.75 m/s TV E/A | | | Ratio: 1.03 Dental Technician: ERASMO Authenticated by: Vinny | | | Marco A NEFF Report Date/Time: 03-22-2013 12:44:09 | | + + + + + | Procedure Note | + + | Jose Hanks Conversion - 12/09/2018 8:13 PM PDT Patient Name: Anupam ESCOBAR of | | : 1970 Performing Physician: Vinny Strickland, | | INDICATIONS A | | CUTE SC PNEUMONIA, COPD CONCLUSIONS 1. Good pump, moderate pulmonary | | hypertension. FINDINGS--------ECG rhythm: Sinus rhythm.Study: A 2-dimensional | | transthoracic echocardiogram with m-mode, spectral and color flow Doppler was | | perfomed.Study: This was a technically adequate study with suboptimal apical and | | subcostal views.Left Ventricle: Left ventricular systolic function is hyperdynamic with | | an estimated EF of >70%.Left Ventricle: The left ventricle cavity size is normal.Left | | Ventricle: Left ventricular wall thickness is normal.Left Ventricle: The diastolic | | filling pattern is normal for the age of the patient.Right Ventricle: The right | | ventricle is mildly enlarged measuring between 3.4 - 3.7 cm.Left Atrium: The left atrium | | is normal in size.Right Atrium: The right atrium is normal in size.Aortic Valve: Aortic | | valve is trileaflet and is mildly thickened.Aortic Valve: There is no evidence of | | aortic regurgitation.Aortic Valve: There is no evidence of aortic stenosis.Mitral Valve: | | Mild mitral regurgitation is present.Mitral Valve: Mild mitral annular calcification | | present.Mitral Valve: Mild thickening of the anterior mitral valve leaflet.Mitral Valve: | | There is mild thickening of the posterior mitral valve leaflet.Tricuspid Valve: | | Fgxy-hz-afgjrlbu tricuspid regurgitation present.Tricuspid Valve: There is moderate | | pulmonary hypertension.Tricuspid Valve: The right ventricular systolic pressure | | (pulmonary artery systolic pressure), as measured by Doppler, is {RVSP}.Pulmonic Valve: | | Pulmonic valve appears structurally normal.Pulmonic Valve: Trace pulmonic | | regurgitation.Pericardium: There is a trivial pericardial effusion present.IVC/Hepatic | | Veins: The IVC is normal size (1.5-2.5cm) and collapses >50% with sniff, consistent with | | central venous pressures of 5-10mmHg.Thrombus: No clot visualizedSeptum: Mobile | | interatrial septum. MEASUREMENTS LA Major: 4.31 cmEDV(Teich): 94.63 | | mlIVSd: 1.04 cmLVIDd: 4.54 cmLVPWd: 0.75 cmLVOT Diam: 2.23 cm%FS: 36.71 | | %EF(Teich): 66.63 %ESV(Teich): 31.57 mlIVSs: 1.19 cmLVIDs: 2.87 cmLVPWs: 1.21 | | cmSV(Teich): 63.06 mlRA Major: 4.31 cmRVIDd: 3.51 cmLAAs A2C: 17.11 [id number] A-L | | A2C: 55.22 mlLALs A2C: 4.50 cmAo Diam: 3.51 cmAV Cusp: 2.42 cmLA Diam: 4.02 | | cmLA/Ao: 1.14%FS: 33.70 %EDV(Teich): 115.90 mlEF(Teich): 62.30 %ESV(Teich): | | 43.69 mlIVSd: 0.89 cmIVSs: 1.28 cmLVIDd: 4.95 cmLVIDs: 3.28 cmLVPWd: 0.89 | | cmLVPWs: 1.50 cmSV(Teich): 72.21 mlD-E Excursion: 1.51 cmE-F [place]: 0.07 | | m/sEPSS: 0.73 cmIVC diameter: 2.47 cmIVC collapse: 1.11 cmIVC % collapse: 52.36 | | %HR: 78.78 BPMAV maxP.53 mmHgAV meanP.92 mmHgAV Vmax: 1.46 m/Viri Vmean: | | 1.06 m/Viri VTI: 33.32 cmAVA Vmax: 3.14 cm2AVA (VTI): 2.80 [id number] Dopp: 3.45 | | [id number] Dopp: 7.15 l/minHR: 76.55 BPMLVOT maxP.44 mmHgLVOT meanP.76 | | mmHgLVSI Dopp: 45.15 ml/m2LVSV Dopp: 93.47 mlLVOT Vmax: 1.16 m/sLVOT Vmean: 0.77 | | m/sLVOT VTI: 23.77 cmMCO: 421.44 msMV A Manjeet: 0.98 m/sMV DecT: 133.38 msMV E | | Manjeet: 0.88 m/sMV E/A Ratio: 0.90MV PHT: 49.80 msMVA By PHT: 4.41 cm2MV A Dur: | | 125.69 msSeptal e': 0.06 m/sSeptal E/e': 13.21Lateral e': 0.11 m/sLateral E/e': | | 7.97P Vein A: 0.23 m/sP Vein A Dur: 81.33 msP Vein D: 0.40 m/sP Vein S/D Ratio: | | 1.14P Vein S: 0.46 m/sHR: 77.65 BPMPV maxP.19 mmHgPV meanP.17 mmHgPV | | Vmax: 0.74 m/sPV Vmean: 0.51 m/sPV VTI: 16.59 cmTR maxP.61 mmHgTR Vmax: | | 3.55 m/sTV A Manjeet: 0.73 m/sTV Dec [place]: 6.25 m/s2TV Dec Time: 121.02 msTV E Manjeet: | | 0.75 m/sTV E/A Ratio: 1.03 Dental Technician: KIMuthenticated by: Vinny Strickland | | MDReport Date/Time: 03-22-2013 12:44:09 IMPRESSION: 1. Good pump, moderate pulmonary | | hypertension. | |EDV(Teich): 94.63 ml | |IVSd: 1.04 cm | |LVIDd: 4.54 cm | |LVPWd: 0.75 cm | |LVOT Diam: 2.23 cm | |%FS: 36.71 % | |EF(Teich): 66.63 % | |ESV(Teich): 31.57 ml | |IVSs: 1.19 cm | |LVIDs: 2.87 cm | |LVPWs: 1.21 cm | |SV(Teich): 63.06 ml | |RA Major: 4.31 cm | |RVIDd: 3.51 cm | |LAAs A2C: 17.11 cm2 | |LAESV A-L A2C: 55.22 ml | |LALs A2C: 4.50 cm | |Ao Diam: 3.51 cm | |AV Cusp: 2.42 cm | |LA Diam: 4.02 cm | |LA/Ao: 1.14 | |%FS: 33.70 % | |EDV(Teich): 115.90 ml | |EF(Teich): 62.30 % | |ESV(Teich): 43.69 ml | |IVSd: 0.89 cm | |IVSs: 1.28 cm | |LVIDd: 4.95 cm | |LVIDs: 3.28 cm | |LVPWd: 0.89 cm | |LVPWs: 1.50 cm | |SV(Teich): 72.21 ml | |D-E Excursion: 1.51 cm | |E-F [place]: 0.07 m/s | |EPSS: 0.73 cm | |IVC diameter: 2.47 cm | |IVC collapse: 1.11 cm | |IVC % collapse: 52.36 % | |HR: 78.78 BPM | |AV maxP.53 mmHg | |AV meanP.92 mmHg | |AV Vmax: 1.46 m/s | |AV Vmean: 1.06 m/s | |AV VTI: 33.32 cm | |VIKRAM Vmax: 3.14 cm2 | |VIKRAM (VTI): 2.80 cm2 | |LVCI Dopp: 3.45 l/minm2 | |LVCO Dopp: 7.15 l/min | |HR: 76.55 BPM | |LVOT maxP.44 mmHg | |LVOT meanP.76 mmHg | |LVSI Dopp: 45.15 ml/m2 | |LVSV Dopp: 93.47 ml | |LVOT Vmax: 1.16 m/s | |LVOT Vmean: 0.77 m/s | |LVOT VTI: 23.77 cm | |MCO: 421.44 ms | |MV A Manjeet: 0.98 m/s | |MV DecT: 133.38 ms | |MV E Manjeet: 0.88 m/s | |MV E/A Ratio: 0.90 | |MV PHT: 49.80 ms | |MVA By PHT: 4.41 cm2 | |MV A Dur: 125.69 ms | |Septal e': 0.06 m/s | |Septal E/e': 13.21 | |Lateral e': 0.11 m/s | |Lateral E/e': 7.97 | |P Vein A: 0.23 m/s | |P Vein A Dur: 81.33 ms | |P Vein D: 0.40 m/s | |P Vein S/D Ratio: 1.14 | |P Vein S: 0.46 m/s | |HR: 77.65 BPM | |PV maxP.19 mmHg | |PV meanP.17 mmHg | |PV Vmax: 0.74 m/s | |PV Vmean: 0.51 m/s | |PV VTI: 16.59 cm | |TR maxP.61 mmHg | |TR Vmax: 3.55 m/s | |TV A Manjeet: 0.73 m/s | |TV Dec [place]ide: 6.25 m/s2 | |TV Dec Time: 121.02 ms | |TV E Manjeet: 0.75 m/s | |TV E/A Ratio: 1.03 | | | |Dental Technician: KVW | |Authenticated by: Vinny Strickland MD | |Report Date/Time: 03-22-2013 12:44:09 | | | |IMPRESSION: | |1. Good pump, moderate pulmonary hypertension. | + + CT Chest wo Contrast (03/22/2013 7:10 AM PST) + + | Specimen | + + | | + + + + + | Impressions | Performed At | + + + | 1. Scattered multifocal areas of scarring or atelectasis | | | throughout the lungs. 2. There are 2 cystic/cavitary lesions | | | demonstrated throughout the lung, one in the right upper and the | | | second in the right lower lobe as discussed above. The findings may | | | reflect stigmata of prior pneumonia or septic emboli with necrosis. An | | | underlying cavitary mass lesion is not entirely excluded and a | | | followup CT is recommended in 3 months. 3. There is an | | | indeterminate nodule in the left upper lobe. Given the location, this | | | would be difficult to biopsy. Followup examination could be performed | | | in 3-6 months as well. 4. Potential left thyroid nodule. If | | | indicated, further evaluation could be performed with dedicated | | | ultrasound. Electronically signed by Neno Ellison MD on | | | 03/22/2013 7:22 AM | | + + + + + + | Narrative | Performed At | + + + | [facility] [address] CHEST WO CONTRAST | | | 03/22/2013 7:10 AM HISTORY: Shortness of breath, hypoxia | | | COMPARISON: None. TECHNIQUE: CT scan of the chest without | | | contrast. 5-mm thick helically acquired axial images were obtained | | | in soft tissue and lung algorithm. FINDINGS: The thyroid | | | demonstrates some faint calcifications and a potential nodule that | | | measures 14.5 mm in length on image 8 series 3. The nodule is noted | | | along the posterior left inferior margin. There is no cervical | | | adenopathy. Some nodularity is noted along the anterior mediastinum | | | which may reflect some residual thymic tissue. No axillary or | | | mediastinal lymph node enlargement is present. The heart is normal in | | | size. There is no pleural or pericardial fluid. The trachea and | | | esophagus are normal in appearance. There is atelectasis and scarring | | | of the upper lobes, left greater than right. No focal airspace | | | consolidation is present. Atelectasis versus scarring extends down | | | into the right middle lobe and lingula. Patchy subpleural densities | | | in the right lower lobe probably are along the same process and | | | reflects atelectasis. In the right lower lobe posteriorly adjacent to | | | the hemidiaphragm, there is a mildly spiculated lesion measuring 29.5 | | | x 35.8 mm on image 40 series 4 with central cystic change. A similar | | | finding is demonstrated anteriorly in the right upper lobe measuring | | | 25.4 x 32.8 mm on image 16 series 4. There is a pulmonary nodule in | | | the left upper lobe apex measuring 7.8 mm on image 6 series 4. | | | Moderate degenerative disc disease of the thoracic spine is present. | | | There are no acute rib fractures. No lytic or blastic lesions are | | | present. The liver is smooth in contour. The adrenals and spleen are | | | normal in appearance. The visualized pancreas is normal. There | | | appears to be a trace amount of ascites adjacent to the liver. | | + + + + + | Procedure Note | + + | Demario, Rad Conversion - 12/09/2018 8:13 PM PDT [facility]1970 42 years FemaleCT | | CHEST WO DSOSFYHN54/4/2013 7:10 AM HISTORY: Shortness of breath, hypoxia COMPARISON: | | None. TECHNIQUE: CT scan of the chest without contrast. 5-mm thick helically acquired | | axial images were obtained in soft tissue and lung algorithm. FINDINGS: The thyroid | | demonstrates some faint calcifications and a potential nodule that measures 14.5 mm in | | length on image 8 series 3. The nodule is noted along the posterior left inferior | | margin. There is no cervical adenopathy. Some nodularity is noted along the anterior | | mediastinum which may reflect some residual thymic tissue. No axillary or mediastinal | | lymph node enlargement is present. The heart is normal in size. There is no pleural or | | pericardial fluid. The trachea and esophagus are normal in appearance. There is | | atelectasis and scarring of the upper lobes, left greater than right. No focal airspace | | consolidation is present. Atelectasis versus scarring extends down into the right middle | | lobe and lingula. Patchy subpleural densities in the right lower lobe probably are | | along the same process and reflects atelectasis. In the right lower lobe posteriorly | | adjacent to the hemidiaphragm, there is a mildly spiculated lesion measuring 29.5 x 35.8 | | mm on image 40 series 4 with central cystic change. A similar finding is demonstrated | | anteriorly in the right upper lobe measuring 25.4 x 32.8 mm on image 16 series 4. There | | is a pulmonary nodule in the left upper lobe apex measuring 7.8 mm on image 6 series 4. | | Moderate degenerative disc disease of the thoracic spine is present. There are no acute | | rib fractures. No lytic or blastic lesions are present. The liver is smooth in contour. | | The adrenals and spleen are normal in appearance. The visualized pancreas is normal. | | There appears to be a trace amount of ascites adjacent to the liver. IMPRESSION: 1. | | Scattered multifocal areas of scarring or atelectasis throughout the lungs.2. There are | | 2 cystic/cavitary lesions demonstrated throughout the lung, one in the right upper and | | the second in the right lower lobe as discussed above. The findings may reflect stigmata | | of prior pneumonia or septic emboli with necrosis. An underlying cavitary mass lesion | | is not entirely excluded and a followup CT is recommended in 3 months.3. There is an | | indeterminate nodule in the left upper lobe. Given the location, this would be difficult | | to biopsy. Followup examination could be performed in 3-6 months as well.4. Potential | | left thyroid nodule. If indicated, further evaluation could be performed with dedicated | | ultrasound. | |3. There is an indeterminate nodule in the left upper lobe. Given the location, this would be difficult to biopsy. Followup examination could be performed in 3-6 months as well. | |4. Potential left thyroid nodule. If indicated, further evaluation could be performed with dedicated ultrasound. | | | | | + + ECG 12 lead (03/22/2013 6:45 AM PST) + + + + + + | Component | Value | Ref Range | Performed | Pathologist | | | | | At | Signature | + + + + + + | DIAGNOSIS: | Normal sinus | | EXTERNAL | | | | rhythmNonspecific ST | | LAB | | | | and/or T wave | | | | | | abnormalitiesBorderline | | | | | | ECGWhen compared with | | | | | | ECG of 21-MAR-2013 | | | | | | 19:28,T wave inversion | | | | | | less evident in Anterior | | | | | | leadsQT has | | | | | | shortenedConfirmed by | | | | | | ALEXANDRU MANZO ([id number]) on | | | | | | 03/23/2013 5:25:52 PM | | | | + + + + + + + + | Specimen | + + | | + + + + + | Narrative | Performed At | + + + | Historically converted procedure from [facility] environment | EXTERNAL LAB | + + + + +---------+ + + | Performing | Address | City/State/Zipcode | Phone Number | | Organization | | | | + +---------+ + + | EXTERNAL LAB | | | | + +---------+ + + XR Chest 1 Vw (03/21/2013 8:57 PM PST) + + | Specimen | + + | | + + + + + | Impressions | Performed At | + + + | 1. Mild infiltrate in the right lung base. There is mild elevation | | | of the right diaphragm, suggesting a component of atelectasis. 2. | | | Mild perihilar atelectasis or scarring. | | + + + + + + | Narrative | Performed At | + + + | [facility] XR CHEST 1 VIEW 03/21/2013 8:57 PM HISTORY: Chest | | | pain. TECHNIQUE: One view of the chest. FINDINGS: No | | | comparison. There is mild elevation of the right diaphragm. There is a | | | mild focal infiltrate in the right lung base. There is mild bilateral | | | perihilar atelectasis or scarring. Heart size is upper limits of | | | normal. No pneumothorax or pleural effusions. | | + + + + + | Procedure Note | + + | Demario, Rad Conversion - 12/09/2018 8:13 PM PDT [facility] CHEST 1 VIEW03/21/2013 | | 8:57 PM HISTORY:Chest pain. TECHNIQUE:One view of the chest. FINDINGS:No comparison. | | There is mild elevation of the right diaphragm. There is a mild focal infiltrate in the | | right lung base. There is mild bilateral perihilar atelectasis or scarring. Heart size | | is upper limits of normal. No pneumothorax or pleural effusions. IMPRESSION: 1. Mild | | infiltrate in the right lung base. There is mild elevation of the right diaphragm, | | suggesting a component of atelectasis.2. Mild perihilar atelectasis or scarring. | | | |One view of the chest. | | | |FINDINGS: | |No comparison. There is mild elevation of the right diaphragm. There is a mild focal infilt rate in the right lung base. There is mild bilateral perihilar atelectasis or scarring. Hear t size is upper limits of normal. | |No pneumothorax or pleural effusions. | | | |IMPRESSION: | |1. Mild infiltrate in the right lung base. There is mild elevation of the right diaphragm, suggesting a component of atelectasis. | |2. Mild perihilar atelectasis or scarring. | | | | | + + ECG 12 lead (03/21/2013 7:28 PM PST) + + + + + + | Component | Value | Ref Range | Performed | Pathologist | | | | | At | Signature | + + + + + + | DIAGNOSIS: | Normal sinus rhythmT | | EXTERNAL | | | | wave abnormality, | | LAB | | | | consider anterior | | | | | | ischemiaProlonged | | | | | | QTAbnormal ECGNo | | | | | | previous ECGs | | | | | | availableThis ECG | | | | | | [...] (500), | | | | | | fan mail editor NICK GOMEZ (2) | | | | | | on 03/22/2013 5:26:12 AM | | | | | | | | | | + + + + + + + + | Specimen | + + | | + + + + + | Narrative | Performed At | + + + | Historically converted procedure from [facility] environment | EXTERNAL LAB | + + + + +---------+ + + | Performing | Address | City/State/Zipcode | Phone Number | | Organization | | | | + +---------+ + + | EXTERNAL LAB | | | | + +---------+ + + documented in this encounter Visit Diagnoses + + | Diagnosis | + + | NSTEMI (non-ST elevated myocardial infarction) (HCC) Acute myocardial infarction, | | subendocardial infarction, episode of care unspecified | + + | Current smoker Tobacco use disorder | + + | RA (rheumatoid arthritis) (HCC) Rheumatoid arthritis | + + | ARF (acute renal failure) (HCC) Acute kidney failure, unspecified | + + | Bacterial pneumonia, unspecified | + + | COPD exacerbation (HCC) Obstructive chronic bronchitis with exacerbation | + + | Elevated brain natriuretic peptide (BNP) level Other nonspecific findings on | | examination of blood | + + | Hypoxemia | + + | Abnormal LFTs Other abnormal blood chemistry | + + | Hyponatremia Hyposmolality and/or hyponatremia | + + | Hyperkalemia Hyperpotassemia | + + | DM (diabetes mellitus) (HCC) Type II or unspecified type diabetes mellitus without | | mention of complication, not stated as uncontrolled | + + | Tobacco abuse Tobacco use disorder | + + | Diabetes mellitus type II Type II or unspecified type diabetes mellitus without | | mention of complication, not stated as uncontrolled | + + | Hyperlipidemia Other and unspecified hyperlipidemia | + + | Hypertension Unspecified essential hypertension | + + | Bipolar 2 disorder (HCC) Other bipolar disorders | + + documented in this encounter
--- OUTSIDE RECORDS SUMMARY | ~2019-04-18 | XMS | Encounter Summary ---
Demographics + + + | Address | [address] | | | [place] [address] | + + + | Home Phone | | + + + | Preferred Language | Unknown | + + + | Marital Status | Single | + + + | Episcopalian Affiliation | Unknown | + + + [...] | | | | | [place] [address] | | + + + + + | Robson Min | ECON | Unknown | | + + + + + | Isabella Whitehead | ECON | Unknown | | + + + + + Care Team Providers + +------+ + | Care Inner Diameter Grinder Tool Name | Role | Phone | + +------+ + | Ora Slater | PCP | | + +------+ + Reason for Visit + + + | Reason | Comments | + + + | Procedure | Botox-head/neck | + + + Service/Procedure (Routine) +--------+--------+ + + + + | Status | Reason | Specialty | Diagnoses / | Referred By | Referred To | | | | | Procedures | Contact | Contact | +--------+--------+ + + + + | Closed | | Neurology | Diagnoses | Tariq, | Samay[place], | | | | | Migraine | Theo, | Jimbo Box MD | | | | | with aura, | [address] | | | | | intractable, | [address] | DR, [place] | | | | | without | [place] | [place], [place] | | | | | status | [place], [place] | [address] Phone: | | | | | migrainosus | [address] | [phone] | | | | | Procedures | Phone: | Fax: | | | | | BOTOX | [phone] | [phone] | | | | | INJECTION | Fax: | | | | | | PAIN CLINIC | [phone] | | | | | | PROCEDURE | | | | | | | Botox | | | +--------+--------+ + + + + Encounter Details +--------+ + + + + | Date | Type | Department | Care Team | Description | +--------+ + + + + | 12/02/ | Procedure | [facility] | Jimbo Samayoa MD | Intractable migraine | | 2019 | visit | [facility] | [address] | with aura without | | | | CLINIC [address] | [place] | status migrainosus | | | | DR [place], | [address] | (Primary Dx) | | | | [place] [address] | | | | | | [phone] | | | +--------+ + + + [...] + | Blood Pressure | 130/78 | 12/02/2018 10:45 AM | | | | | PDT | | + + + + + | Pulse | 86 | 12/02/2018 10:45 AM | | | | | PDT | | + + + + + | Temperature | - | - | | + + + + + | Respiratory Rate | 20 | 12/02/2018 10:45 AM | | | | | PDT | | + + + + + | Oxygen Saturation | 91% | 12/02/2018 10:45 AM | | | | | PDT | | + + + + + | Inhaled Oxygen | - | - | | | Concentration | | | | + + + + + | Weight | 98.9 kg (218 lb) | 12/02/2018 10:45 AM | | | | | PDT | | + + + + + | Height | 165.1 cm (5' 5") | 12/02/2018 10:45 AM | | | | | PDT | | + + + + + | Body Mass Index | 36.28 | 12/02/2018 10:45 AM | | | | | PDT [...] [place] | | | | | | [address] | | | | | | | | +--------+---------+ + + + | 07/26/ | Office | Pulmonology | Navdeep [place], | | | 2019 | Visit | | [address] | | | | | | [place] | | | | | | [address] | | | | | | | | +--------+---------+ + + + documented as of this encounter Procedures + +--------+ + + + | Procedure Name | Priori | Date/Time | Associated Diagnosis | Comments | | | ty | | | | + +--------+ + + + | BOTOX INJECTION PAIN | Routin | 12/02/2018 | Intractable | Results for this | | CLINIC PROCEDURE | e | 11:15 AM | migraine with aura | procedure are in the | | | | PDT | without status | [...] + | onabotulinumtoxinA (BOTOX) | Given | 12/03/19 | 200 | | Other | | injection 200 Units 200 Units, | | 19 11:17 | Units | | (Comment | | Intramuscular, ONCE, 12/02/18 | | AM PDT | | | ) | | at 1145, For 1 dose | | | | | | + +--------+ +-------+------+ + +---+---+ | | | +---+---+ documented in this encounter
--- OUTSIDE RECORDS SUMMARY | ~2019-04-18 | XMS | Encounter Summary ---
Demographics + + + | Address | [address] | | | [place] [address] | + + + | Home Phone | | + + + | Preferred Language | Unknown | + + + | Marital Status | Single | + + + | Cheondoism Affiliation | Unknown | + + + | Race | Unknown | + + + | Ethnic Group | Unknown | + + + Author + + + | Author | [facility] | | | and [place] | + + + | Organization | [facility] | | | and [...] | | | | | [place] [address] | | + + + + + | Robson Min | ECON | Unknown | | + + + + + | Isabella Whitehead | ECON | Unknown | | + + + + + Care Team Providers + +------+ + | Care Electronic Test Technician Name | Role | Phone | [...] + + | 09/21/ | Telephone | [facility] | Cecilio Amato MD | Other | | 2013 | | GASTROENTEROLOGY | [address] | (gastroparesis) | | | | [address] [facility] | [place], [place] | | | | | [address], [place] | [address] | | | | | [address] | [phone] | | | | | [phone] | | | +--------+ + + + [...] [place] | | | | | | [id number] | | | | | | | | +--------+---------+ + + + | 07/26/ | Office | Pulmonology | Navdeep Grande, | | | 2019 | Visit | | MD Cely GORE | | | | | | [place] | | | | | | [id number] | | | | | | | | +--------+---------+ + + + documented as of this encounter Visit Diagnoses Not on filedocumented in this encounter"
--- OUTSIDE RECORDS SUMMARY | ~2019-04-18 | XMS | Encounter Summary ---
Demographics + + + | Address | [address] | | | [place] [address] | + + + | Home Phone [...] | Author | [facility] | | | and [place] | + + + | Organization | [facility] | | | and [place] | + + + | Address | Unknown | + + + | Phone | Unavailable | + + + Support + + + + + | Name | Relationship | Address | Phone | + + + + + | Isablela Min | ECON | [address] | | | | | [place] [address] | | + + + + + | Robson Min | ECON | Unknown | | + + + + + | Isabella Whitehead | ECON | Unknown | | + + + + + Care Team Providers + +------+ + | Care Affiliate Marketing Specialist Name | Role | Phone | + +------+ + | Bart Ba DO | PCP | | + +------+ + Encounter Details +--------+ + + + + | Date | Type | Department | Care Team | Description | +--------+ + + + + | 10/18/ | Orders Only | [facility] [place] | Lu Almazan, | COPD, mild (HCC); | | 2017 | | PULMONARY [address] | RN | Alveolar | | | | [place], | | hypoventilation | | | | [place] [address] | | | | | | [phone] | | | +--------+ + + + [...] [place] | | | | | | [address] | | | | | | | | +--------+---------+ + + + | 07/26/ | Office | Pulmonology | Navdeep Grande, | | | 2019 | Visit | | MD Cely GORE | | | | | | [place] | | | | | | [address] | | | | | | | | +--------+---------+ + + + documented as of this encounter Visit Diagnoses + + | Diagnosis | + + | COPD, mild (HCC) Chronic airway obstruction, not elsewhere classified | + + | Alveolar hypoventilation Other dyspnea and respiratory abnormality | + + documented in this encounter"
--- OUTSIDE RECORDS SUMMARY | ~2019-04-18 | XMS | Encounter Summary ---
Demographics + + + | Address | [address] | | | [place] [address] | + + + | Home Phone | | + + + | Preferred Language | Unknown | + + + | Marital Status | Single | + + + | Jewish Affiliation | Unknown | + + + [...] | | | | | [place] [address] | | + + + + + | Robson Escobar | ECON | Unknown | | + + + + + | Isabella Whitehead | ECON | Unknown | | + + + + + Care Team Providers + +------+ + | Care Classification Officer Name | Role | Phone | + +------+ + | Herman Ba DO | PCP | | + +------+ + Encounter Details +--------+ + + + + | Date | Type | Department | Care Team | Description | +--------+ + + + + | 09/05/ | Hospital | [facility] | Betsey Connolly DO | Metabolic alkalosis; | | 2015 - | Encounter | [facility] | [address] [facility] [address] | Diabetes mellitus, | | | | CLINICAL DECISION | [place] [address] | type 2 ([facility]); Drug | | 09/11/ | | [address] [place] [address] | [phone] | overdose, sequela; | | 2014 | | [place], [place] | | Hypokalemia; | | | | [address] | | Hypophosphatemia; | | | | [phone] | | Metabolic | | | | | | encephalopathy; | | | | | | Methamphetamine | | | | | | abuse; Obesity (BMI | | | | | | 30.0-34.9); RA | | | | | | (rheumatoid | | | | | | arthritis) ([facility]); | | | | | | Sinus tachycardia; | | | | | | Seizure ([facility]); Acute | | | | | | respiratory | | | | | | alkalosis; Metabolic | | | | | | acidosis; Acute | | | | | | respiratory failure | | | | | | ([facility]); Hypoxia; | | | | | | Obtundation; Bipolar | | | | | | 2 disorder (HCC); | | | | | | Current smoker | +--------+ + + + + Social [...] documented as of this encounter Discharge Summaries Barrington Pride MD - 09/13/2014 4:45 PM PDTFormatting of this note might be different f rom the original. Discharge Summaries by Barrington Pride MD at 09/13/14 7285 Author: Barrington Pride MD Service: (none) Author Type: Physician Filed: 09/13/14 9114 Date of Service: 09/13/147 Status: Signed Tile And Marble Setter: Barrington Pride MD (Physician) [facility] Service: Hospitalist Discharge Summary Date of Admission: 09/05/2014 Date of Discharge: 09/11/14 Discharge Provider: Barrington Pride MD Consulting Provider: CRU Discharge Diagnoses: Principal Problem: Drug overdose Active Problems: Diabetes mellitus, type 2 (HCC) Hypertension Bipolar 2 disorder (HCC) Current smoker RA (rheumatoid arthritis) (HCC) Metabolic encephalopathy Kussmaul breathing Acute respiratory alkalosis Methamphetamine abuse Hypokalemia Hypomagnesemia Hypophosphatemia Obesity (BMI 30.0-34.9) Sinus tachycardia BRIEF HISTORY OF PRESENTATION: Kait Escobar is a 44 y.o. female who presented with altered mental status and respirat ory alkalosis, was intubated, treated with bicarbonate drip, and admitted to ICU, she was + for methamphetamine and opiates. She presented with a seizure and was started on keppra . CT head negative. She was treated conservatively. She denies a suicide attempt but stated t hey were for pain control from RA but doctors not listening to her complaints, just refillin g her usual medications. Counseling done. She is medically stable. CRU has cleared her for d ischarge. She will discharge to her mother . SHe had suspected RLL bacterial pneumonia, clint sriram with vancomycin and cefepime. Doing well. Discharging on oral antibiotic. She is restart ed on her bipolar medications. Needs outpt followup of DM and HTN DISCHARGE EXAM Vital Signs: BP 171/90 | Pulse 75 | Temp(Src) 98.8 F (37.1 C) (Oral) | Resp 16 | Ht 1.702 m (5' 7") | Wt 94.3 kg (207 lb 14.3 oz) | BMI 32.55 kg/m2 | SpO2 97% | ? No NAD AAOx3 HENT - MMM, conjunctivae normal, poor dentition Heart - RRR no murmur, no JVD, normal radial / DP pulses B/L Lungs - Rales RLL, otherwise CTA, no respiratory distress Abd - soft,non tender, non distended, normal bowel tones Ext -RA deformities in hands and feet Skin warm and dry Psych: calm and appropriate, behavior normal, denies suicidality Disposition: home Condition: stable and improved Code Status: Prior Follow up: Herman Ba DO [address] [place] [address] f/u post hospitalization and WBC to resolution Medication List START taking these medications amoxicillin-clavulanate 875-125 MG per tablet QTY: 20 tablet Refills: 0 Commonly known as: AUGMENTIN Take 1 tablet by mouth every 12 (twelve) hours. cloNIDine 0.2 MG/24HR QTY: 4 patch Refills: 1 Commonly known as: CATAPRES Place 1 patch onto the skin once a week. lactobacillus granules QTY: 20 each Refills: 1 Take 1 packet by mouth 2 (two) times daily. levETIRAcetam 500 MG tablet QTY: 60 tablet Refills: 0 Commonly known as: KEPPRA Take 1 tablet by mouth 2 (two) times daily. CONTINUE taking these medications azaTHIOprine 50 MG tablet Refills: 0 Commonly known as: IMURAN BUTALBITAL COMPOUND/ASA 50-325-40 MG per tablet Refills: 0 Generic drug: cqxnfglyqz-slskoyh-iritztde fluticasone-salmeterol 250-50 MCG/DOSE QTY: 2 each Refills: 0 Commonly known as: ADVAIR DISKUS Inhale 1 puff into the lungs 2 (two) times daily. gabapentin 600 MG tablet Refills: 0 Commonly known as: NEURONTIN insulin lispro protamine-insulin lispro (75-25) 100 UNIT/ML injection Refills: 0 Commonly known as: HUMALOG 75/25 ipratropium-albuterol 0.5-2.5 mg/3mL QTY: 360 mL Refills: 0 Commonly known as: DUONEB Take 3 mLs by nebulization 4 (four) times daily as needed. levothyroxine 300 MCG tablet Refills: 0 Commonly known as: SYNTHROID LORazepam 0.5 MG tablet Refills: 0 Commonly known as: ATIVAN lubiprostone 8 MCG capsule Refills: 0 Commonly known as: AMITIZA metFORMIN 500 MG tablet Refills: 0 Commonly known as: GLUCOPHAGE metoprolol 25 MG tablet Refills: 0 Commonly known as: LOPRESSOR Nebulizer (medical delivery driver) QTY: 1 each Refills: 0 Dispense and provide instruction as needed. omeprazole 20 MG capsule Refills: 0 Commonly known as: PRILOSEC ranitidine 150 MG tablet Refills: 0 Commonly known as: ZANTAC simvastatin 20 MG tablet Refills: 0 Commonly known as: ZOCOR sulfaSALAzine 500 MG tablet Refills: 0 Commonly known as: AZULFIDINE venlafaxine 75 MG 24 hr capsule Refills: 0 Commonly known as: EFFEXOR-XR VENTOLIN HFA IN Refills: 0 verapamil 240 MG CR tablet Refills: 0 Commonly known as: CALAN-SR VITAMIN D PO Refills: 0 ziprasidone 80 MG capsule Refills: 0 Commonly known as: TESSIE STOP taking these medications HYDROcodone-acetaminophen 10-325 MG per tablet Commonly known as: NORCO Ibuprofen 200 MG Caps sulfamethoxazole-trimethoprim 400-80 MG per tablet Commonly known as: BACTRIM Where to Get Your Medications These are the prescriptions that you need to pickler helper. You may get the following medications from any pharmacy - amoxicillin-clavulanate 875-125 MG per tablet - cloNIDine 0.2 MG/24HR - lactobacillus granules - levETIRAcetam 500 MG tablet Discharge took >30 minutes, to include final examination, discussion of admission, and prep aration of prescriptions, instructions for on-going care, follow-up and documentation of dis charge summary. Barrington Pride MD 09/13/2014 documented in this encounter Medications at Time of Discharge [...] | 0 | 10/08/19 | | | zfhukvqxmg-sugbprl-e | every 6 hours as | | [...] + + + +---------+ + + | dicyclomine | Take 1 capsule by | 150 | 3 | 09/21/19 | | | (BENTYL) 10 mg | mouth every 6 hours | capsule | | 14 | 8 | | capsule | as needed. | | | | [...] | | Inhale 2 puffs into | | 0 | | | | fluticasone-salmeter | the lungs 2 times | | | | 7 | | ol (ADVAIR HFA) | daily. | | | | | | 45-21 MCG/ACT | | | | | | | inhaler | | | | | | + [...] + + + +---------+ + + | insulin glargine | Inject 20 Units | | 0 | | | | (LANTUS) 100 | under the skin | | | | 7 | | units/mL injection | nightly. | | | | | + + + +---------+ + + | Insulin Lispro, | Inject 20 Units | | 0 | | | | Human, (HUMALOG | under the skin | | | | 7 | | KWIKPEN SC) | nightly. | | | | | [...] by mouth 4 | | 0 | | | | (CARAFATE) 1 g | times daily. | | | | 6 | | tablet | | [...] + + + +---------+ + + | VERAPAMIL HCL PO | Take 120 mg by mouth | | 0 | | | | | 2 times daily. | | | | 7 | + + + +---------+ + + | ziprasidone | Take 60 mg by mouth | | 0 | 09/22/19 | | | (GEODON) 60 MG | nightly. | | | 12 | 9 | | capsule | | | | | | + + + +---------+ + + documented as of this encounter Progress Notes Conversion Transaction, Provider Unknown - 09/11/2014 6:44 PM PDTFormatting of this note m ight be different from the original. Progress Notes by Lesa Rdz RN at 09/11/141843 Author: Lesa Rdz RN Service: (none) Author Type: Registered Nurse Filed: 09/11/141850 Date of Service: 09/11/141843 Status: Signed Tile And Marble Setter: Lesa Rdz RN (Registered Nurse) Discharge instructions reviewed the patient, she is awaiting her mother to arrive from [facility] to drive her home. IJ line removed, dressing is clean, dry and intact. Will pass on to evening or night nurse supervisor RN that discharge is completed and that pt only needs to be assisted to her [employer] vehicle when her mother arrives.Lesa Rdz RN onver james Transaction, Provider Unknown - 09/11/2014 4:37 PM PDT Progress Notes by Lesa Rdz RN at 09/11/14 1637 Author: Lesa Rdz RN Service: (none) Author Type: Registered Nurse Filed: 09/11/14 9118 Date of Service: 09/11/14 1637 Status: Signed Tile And Marble Setter: Lesa Rdz RN (Registered Nurse) Pt cleared for discharge by CRU.Lesa Rdz RN nuradha Botello MS CCC-INSPECTOR AND UNLOADER - 09/11/2014 1:34 PM PDTFormatting of this note might be differen t from the original. Therapy Progress Note by Anuradha Mendez MA CCC-INSPECTOR AND UNLOADER at 09/11/14 9057 Author: Anuradha Mendez MA CCC-INSPECTOR AND UNLOADER Service: (none) Author Type: Speech and Language Pathologist Filed: 09/11/14 7218 Date of Service: 09/11/14 1334 Status: Signed Tile And Marble Setter: Anuradha Mendez MA CCC-INSPECTOR AND UNLOADER (Speech and Language Pathologist) 09/11/14 1328 Swallowing Assessment Eval Swallowing Treatment Yes Initial Swallow Assessment Dentition Dentures not present Thin Presentation Cup;Straw Oral Phase Thin WFL Pharyngeal Phase No overt signs or symptoms of aspiration Recommendations Liquids Consistency Recommendations Thin Diet Consistency Recommendation Dental soft Risk for Aspiration Mild Compensatory Swallowing Strategies Upright as possible for all oral intake;Eat/feed slowly; Small bites/sips Recommended Form of Meds Meds with recommended liquid Summary recommend d/c at this time. Pt still does not have her dentures so continue on den edgar soft textures. Staff Notified RN Plan of Care Treatment Plan Discharge from at this time Dysphagia Goals Pt will have safe/efficient oral intake Goal met Pt will tolerate diet Goal met onversi on Transaction, Provider Unknown - 09/11/2014 1:29 PM PDTFormatting of this note might be d ifferent from the original. Progress Notes by Nik Duarte RPH at 09/11/14 1329 Author: Nik Duarte RPH Service: Pharmacy Author Type: Pharmacist Filed: 09/11/141328 Date of Service: 09/11/141328 Status: Signed Tile And Marble Setter: Nik Duarte RPH (Pharmacist) Vancomycin day 2, est crcl 104.3ml/min, awaiting trough level at 0930 09/12 onver james Transaction, Provider Unknown - 09/11/2014 1:16 PM PDT Case Management by EMA De La Vega at 09/11/14 1316 Author: EMA De La Vega Service: (none) Author Type: Feeder Catcher Tobacco Filed: 09/11/140 Date of Service: 09/11/141315 Status: Signed Tile And Marble Setter: EMA De La Vega (Feeder Catcher Tobacco) Per MD. Pride, "Pt is Medically Cleared but will wait for CRU to Consult" María THOMAS, Lead RN Contacted CRU. This CM made Available [facility] Contacts for f/u. Transpor tation TBD. onver james Transaction, Provider Unknown - 09/10/2014 10:01 AM PDT Progress Notes by Krystle Sparks RPH at 09/10/14 1001 Author: Krystle Sparks RPH Service: (none) Author Type: Pharmacist Filed: 09/10/14 1001 Date of Service: 09/10/14 100 Status: Signed Tile And Marble Setter: Krystle Sparks RPH (Pharmacist) Clinical Pharmacy Note: Pharmacy Dosing Vancomycin; Day 1 Kait Escobar 44 y.o. female Height: 170.2 cm Weight: 94 kg WBC: 12.44 CREATININE: 0.83 (09/10/14554) Estimated creatinine clearance - 102.9 mL/min INDICATION: HAP First dose of Vancomycin 1750 mg (19 mg/kg) to be given 09/10 at 1030; will continue 1750 mg IV Q12H. Level due 09/12 at 0930; goal 15 to 20 mcg/mL. Pharmacy will continue to monitor for changes in renal function and adjust accordingly per protocol. Jeffy Bruce DO - 09/10/2014 8:55 AM PDTFormatting of this note might be different from the [facility]. Progress Notes by Jeffy Rahman DO at 09/10/14854 Author: Jeffy Rahman DO Service: Hospitalist Author Type: Physician Filed: 09/10/14900 Date of Service: 09/10/14854 Status: Signed Tile And Marble Setter: Jeffy Rahman DO (Physician) PROGRESS NOTE 09/10/2014 for Kait Escobar on the hospitalist service. Initially presented with altered mental status and resp alkalosis, intubated and tx'd initi ally in ICU, thought to be due to overdose of meth + unknown prescription medication(s). Met abolic derangements improved with conservative management, she was extubated and transferred to hospitalists. She admitted to me to taking too many narcotics, not as a suicide attempt, with meth. I am planning on getting CRU eval prior to DC but overnight the patient's WBC in creased and she had fever, which I am working up today. IV access is via central line which we have retained for now as patient reportedly has poor venous access otherwise. ASSESSMENT & PLAN Drug overdose Narcotics and meth. Seems to have cleared from her system at this point; respiratory and me ntal fxn appears at or near baseline. Anticipate calling crisis response when ready for DC. Patient denies suicidal ideation to me, says she just took the meds to try to dull out pain with no intent to harm herself. Fever and Leukocytosis Worsened overnight. Suspect RLL pneumonia based on cough and auscultation. Get CXR and UA. Attempt sputum culture, get blood cultures, and cover HAP with vancomycin/cefepime. Resp alkalosis Now resolved. Hypomagnesemia Ongoing, replete, recheck. Bipolar Restarted on ziprazidone and venlafaxine. DM2, HTN Insulins while inpatient, also clonidine, verapamil, metoprolol for BP. Anticipate resumpti on of home regimen at discharge with outpatient follow up / management. Problem list: Principal Problem: Drug overdose Active Problems: Diabetes mellitus, type 2 (HCC) Hypertension Bipolar 2 disorder (HCC) Current smoker RA (rheumatoid arthritis) (HCC) Metabolic encephalopathy Kussmaul breathing Acute respiratory alkalosis Methamphetamine abuse Hypokalemia Hypomagnesemia Hypophosphatemia Obesity (BMI 30.0-34.9) Sinus tachycardia Length of stay: 5 days DVT prophylaxis: HSQ Code status: full code Disposition: probable DC tomorrow SUBJECTIVE Patient seen/examined sitting in bed, sitter present, patient is coughing, admits to some d yspnea, wants to DC home but I expressed concern that she could be developing infection and would like to work it up further before we send her home. OBJECTIVE Temp: [97.6 F (36.4 C)-101.3 F (38.5 C)] 98.5 F (36.9 C) (09/11 739) BP: (124-178)/(75-103) 145/86 mmHg (09/10 07) Heart Rate: [73-93] 78 (09/10 07) Resp: [16-24] 16 (09/10 07) SpO2: [92 %-96 %] 95 % (09/10 07) Weight: [94 kg (207 lb 3.7 oz)] 94 kg (207 lb 3.7 oz) (09/10 0330) Physical exam: NAD AOx3 HENT - MMM, conjunctivae normal Heart - RRR no murmur, no JVD, normal radial / DP pulses B/L Lungs - Rales RLL, otherwise CTA, good effort, +productive cough Abd - SNTND +BSx4 Ext - Good ROM no tenderness or edema Central line L IJ appears normal, no erythema/tenderness/exudate CBC: Lab Results Component Value Date WBC 12.44* 09/10/2014 RBC 3.66* 09/10/2014 HGB 11.8 09/10/2014 HCT 36.2 09/10/2014 MCV 98.8 09/10/2014 MCH 32.1 09/10/2014 MCHC 32.5 09/10/2014 RDW 53.8* 09/10/2014 PLT 267 09/10/2014 MPV 8.2 09/10/2014 DIFFTYPE AUTOMATED 09/10/2014 CMP: Lab Results Component Value Date NA 132* 09/10/2014 K 3.8 09/10/2014 CL 99 09/10/2014 CO2 30 09/10/2014 ANIONGAP 7 09/10/2014 GLUF 222* 09/10/2014 BUN 12 09/10/2014 CREATININE 0.83 09/10/2014 BCR 14 09/10/2014 CA 9.0 09/10/2014 PROT 6.7 09/06/2014 ALB 2.8* 09/06/2014 GLOB 3.8 09/06/2014 BILITOT 0.5 09/06/2014 ALP 81 09/06/2014 AST 36 09/06/2014 ALT 63 09/06/2014 EGFR >60 09/10/2014 Magnesium: Lab Results Component Value Date MG 1.5* 09/10/2014 Phosphorus: Lab Results Component Value Date PHOS 3.2 09/10/2014 MEDICATIONS azaTHIOprine 50 mg Oral BID cloNIDine 1 patch Transdermal Weekly docusate sodium 100 mg Oral BID Or docusate 100 mg Per OG Tube BID enalaprilat 1.25 mg Intravenous Q6H fluticasone-salmeterol 1 puff Inhalation 2 times daily heparin (porcine) 5000 unit/0.5mL 5,000 Units Subcutaneous Q8H insulin aspart 0-3 Units Subcutaneous Nightly insulin aspart 0-6 Units Subcutaneous TID AC levETIRAcetam 500 mg Oral BID levothyroxine 200 mcg Oral QAM AC magnesium sulfate 2 g Intravenous Once metoprolol 50 mg Oral BID nystatin Topical BID venlafaxine 75 mg Oral TID WC verapamil 160 mg Oral 3 times per day ziprasidone 80 mg Oral BID WC dextrose PRN: acetaminophen OR acetaminophen, albuterol, dextrose, dextrose, dextrose, dextrose, gluc agon, glucagon, labetalol, nystatin, nystatin, ondansetron OR ondansetron Signature: Jeffy Rahman DO 09/10/2014 8:55 AM onversion Transaction , Provider Unknown - 09/09/2014 2:39 PM PDT Progress Notes by Juan A Marcano RD at 09/09/14 1439 Author: Juan A Marcano RD Service: (none) Author Type: Registered Dietitian Filed: 09/09/14 2316 Date of Service: 09/09/14 143 Status: Signed Tile And Marble Setter: Juan A Marcano RD (Registered Dietitian) 09/09/14 1437 Subjective Timepoint Follow up Pt c/o None Pt c/o Pt has no complaints at time of visit, states her appetite is fine, tolerating her m eals well, sitter at bedside is helping pt order meals. Reported by Patient Fluid / Beverage Intake Oral Fluids Amount Pt drinking fluids ad esperanza. Food Intake Amount of Food Pt reports eating 50% of her breakfast this morning, 100% of her lunch, siit er confirms intake is accurate. Type of Food / Meals Diabetic maintenance, dental soft per INSPECTOR AND UNLOADER. Micronutrient Intake Mineral / Element Intake Magnesium Nutrition-Focused Physical Findings Digestive System (Mouth to Rectum) Pt is missing her upper dentures. Biochemical data, medical tests, and procedures reviewed Biochemical data, medical tests, and procedures reviewed Mg low 1.3, has order for Mg sulfa te, BG elevated 212, 174, 210, has novolog ordered. Recommendations Recommended energy needs Continue diabetic maintenance diet as ordered with dental soft ander ures. Sitter at bedside will help pt order meals. Will monitor po intake for adequacy, suppl ements are available if needed. Nutritional Risk Nutritional risk Low / moderate Nutritional risk comment No nutrition diagnoses identified at this time. Follow up date 09/15/[address] rowJeffy calderón DO - 09/09/2014 12:06 PM PDTFormatting of this note might be different from the deisi ginal. Progress Notes by Jeffy Rahman DO at 09/09/14 1206 Author: Jeffy Rahman DO Service: Hospitalist Author Type: Physician Filed: 09/09/14 9439 Date of Service: 09/09/14 1206 Status: Signed Tile And Marble Setter: Jeffy Rahman DO (Physician) PROGRESS NOTE 09/09/2014 for Kait Escobar on the hospitalist service. ASSESSMENT & PLAN Drug overdose Narcotics and meth. Seems to have cleared from her system at this point; respiratory and me ntal fxn appears at or near baseline. Anticipate calling crisis response tomorrow for DC matt nning. Patient denies suicidal ideation to me, says she just took the meds to try to dull ou t pain with no intent to harm herself. Resp alkalosis Now resolved. Hypomagnesemia Replete, recheck. Bipolar Restarted on ziprazidone and venlafaxine. DM2, HTN Insulins while inpatient, also clonidine, verapamil, metoprolol for BP. Anticipate resumpti on of home regimen at discharge with outpatient follow up / management. Problem list: Principal Problem: Drug overdose Active Problems: Diabetes mellitus, type 2 (HCC) Hypertension Bipolar 2 disorder (HCC) Current smoker RA (rheumatoid arthritis) (HCC) Metabolic encephalopathy Kussmaul breathing Acute respiratory alkalosis Methamphetamine abuse Hypokalemia Hypomagnesemia Hypophosphatemia Obesity (BMI 30.0-34.9) Sinus tachycardia Length of stay: 4 days DVT prophylaxis: HSQ Code status: full code Disposition: probable DC tomorrow SUBJECTIVE Patient seen/examined sitting in bed, sitter present, suicide precautions, patient denies s uicide attempt to me, feeling well at this time, no complaints. OBJECTIVE Temp: [97.6 F (36.4 C)-99.2 F (37.3 C)] 99.2 F (37.3 C) (09/09 1536) BP: (129-178)/(79-103) 139/79 mmHg (09/09 1536) Heart Rate: [72-82] 76 (09/09 1536) Resp: [16-20] 16 (09/09 1536) SpO2: [93 %-95 %] 94 % (09/09 1536) Weight: [97.5 kg (214 lb 15.2 oz)] 97.5 kg (214 lb 15.2 oz) (09/09 232) Physical exam: NAD AOx3 HENT - MMM, conjunctivae normal Heart - RRR no murmur, no JVD, normal radial / DP pulses B/L Lungs - CTAB/L no WRR, good effort Abd - SNTND +BSx4 Ext - Good ROM no tenderness or edema CBC: Lab Results Component Value Date WBC 9.63 09/09/2014 RBC 3.65* 09/09/2014 HGB 11.8 09/09/2014 HCT 36.1 09/09/2014 MCV 98.7 09/09/2014 MCH 32.4 09/09/2014 MCHC 32.8 09/09/2014 RDW 53.8* 09/09/2014 PLT 280 09/09/2014 MPV 7.8 09/09/2014 DIFFTYPE AUTOMATED 09/09/2014 CMP: Lab Results Component Value Date NA 133* 09/09/2014 K 4.3 09/09/2014 CL 99 09/09/2014 CO2 28 09/09/2014 ANIONGAP 10 09/09/2014 GLUF 174* 09/09/2014 BUN 15 09/09/2014 CREATININE 0.77 09/09/2014 BCR 19 09/09/2014 CA 8.9 09/09/2014 PROT 6.7 09/06/2014 ALB 2.8* 09/06/2014 GLOB 3.8 09/06/2014 BILITOT 0.5 09/06/2014 ALP 81 09/06/2014 AST 36 09/06/2014 ALT 63 09/06/2014 EGFR >60 09/09/2014 Magnesium: Lab Results Component Value Date MG 1.3* 09/09/2014 Phosphorus: Lab Results Component Value Date PHOS 3.0 09/09/2014 MEDICATIONS azaTHIOprine 50 mg Oral BID cloNIDine 1 patch Transdermal Weekly docusate sodium 100 mg Oral BID Or docusate 100 mg Per OG Tube BID enalaprilat 1.25 mg Intravenous Q6H fluticasone-salmeterol 1 puff Inhalation 2 times daily heparin (porcine) 5000 unit/0.5mL 5,000 Units Subcutaneous Q8H insulin aspart 0-3 Units Subcutaneous Nightly insulin aspart 0-6 Units Subcutaneous TID AC levETIRAcetam 500 mg Oral BID levothyroxine 200 mcg Oral QAM AC magnesium sulfate 3 g Intravenous Once metoprolol 50 mg Oral BID nystatin Topical BID venlafaxine 75 mg Oral TID WC verapamil 160 mg Oral 3 times per day ziprasidone 80 mg Oral BID WC dextrose PRN: acetaminophen OR acetaminophen, albuterol, dextrose, dextrose, dextrose, dextrose, gluc agon, glucagon, labetalol, nystatin, nystatin, ondansetron OR ondansetron Signature: Jeffy Rahman DO 09/09/2014 12:06 PM onversion Transaction , Provider Unknown - 09/09/2014 4:48 AM PDT Progress Notes by Devi Vora RN at 09/09/14447 Author: Devi Vora RN Service: (none) Author Type: Registered Nurse Filed: 09/09/14449 Date of Service: 09/09/14447 Status: Signed Tile And Marble Setter: Devi Vora RN (Registered Nurse) Pt is alert, oriented x4. She appears withdrawn, sitter at bedside, medication taken withou t difficulty. Pt able to walk to RR with minimal assist, she is able to make needs known, VV S. Devi Vora onver james Transaction, Provider Unknown - 09/08/2014 1:32 PM PDT Nurse Progress Note by Karina Mayer RN at 09/08/14 133 Author: Karina Mayer RN Service: (none) Author Type: Registered Nurse Filed: 09/08/143 Date of Service: 09/08/141331 Status: Signed Tile And Marble Setter: Karina Mayer RN (Registered Nurse) Report given to MARTHA Deleon. Will transfer pt at this time. onver james Transaction, Provider Unknown - 09/08/2014 1:26 PM PDT Nurse Progress Note by Karina Mayer RN at 09/08/14 1326 Author: Karina Mayer RN Service: (none) Author Type: Registered Nurse Filed: 09/08/14 1327 Date of Service: 09/08/146 Status: Signed Tile And Marble Setter: Karina Mayer RN (Registered Nurse) Attempted to start peripheral IV. Attempt unsuccessful. onver james Transaction, Provider Unknown - 09/08/2014 1:04 PM PDT Case Management by EMA eVrma at 09/08/14 130 Author: EMA Verma Service: (none) Author Type: Feeder Catcher Tobacco Filed: 09/08/14 1319 Date of Service: 09/08/14 1304 Status: Signed Tile And Marble Setter: EMA Verma (Feeder Catcher Tobacco) 09/08/14 130 Discharge Planning Evaluation Admitting Diagnosis OD Readmission Yes-greater than 30 days Living Arrangements Alone Support Systems Parent Type of Residence Private residence House type (5th wheel) Independent with ADL's Yes Independent with Mobility Yes Home Care Services No Mental Status Oriented Prior functional status Independent prior to admit Anticipated Discharge Plan Plan communicated to patient/family Yes Resources Financial concerns No Transportation issues No Patient/Family concerns No Prescription Plan Yes Name of Pharmacy [facility] Anticipated Disposition Facility Type Home Met with: patient and discussed discharge planning, Pt is a 44 y.o., female admitted with OD of hydrocodone P t has hx of bipolar disorder, COPD, HTN, DM2, substance abuse (meth), Pt denies suicidal mirza ation. Pt denies overdosing intentionally. She states there have been 2 other times that sh eden has accidentally OD'd. She states she used to be heavy into meth when her son was young. S he reports that she had not used meth for 1 year up until the use prior to admit. I explaine d process for CRU to eval and determine disposition. Patient states that her mother can stay with her 09/11 after d/c which is what might be required by CRU as a contract. Pt has a son in [place] and a sister in [place]. Await CRU to evsc. Patient's PCP is: HERMAN BA Patient's insurance:[place] [facility] Coverage concerns: Medication coverage/concerns: [facility] Bedside Delivery: Community resources utilized / needed: Assistance in transportation: Mother can transport Identification of any specific education / training: Barriers to Discharge / Alternative housing needed: Anticipated DCP: CRU to eval. Bella Diehl Laurie Esteban MS CCC-INSPECTOR AND UNLOADER - 09/08/2014 10:45 AM PDTFormatting of this note might be different fr om the original. Therapy Progress Note by Laurie Steen MS CCC-INSPECTOR AND UNLOADER at 09/08/14 1047 Author: Laurie Steen MS CCC-INSPECTOR AND UNLOADER Service: (none) Author Type: Speech Therapist Filed: 09/08/14 6072 Date of Service: 09/08/141044 Status: Signed Tile And Marble Setter: Laurie Steen MS CCC-INSPECTOR AND UNLOADER (Speech Therapist) 09/08/14 1041 Swallowing Assessment Eval Swallowing Evaluation Yes Initial Swallow Assessment Behavior/Cognition Alert;Cooperative Dentition Dentures upper;Dentures not present (upper denture at home) Vision Functional for self-feeding Patient Positioning Upright in bed Baseline Vocal Quality Normal Oral Motor Exam Labial ROM WFL Labial Symmetry WFL Labial Strength WFL Lingual ROM WFL Lingual Symmetry WFL Lingual Strength WFL Facial Symmetry WFL Vocal Quality WFL Consistencies Consistencies Assessed Yes Thin Presentation Cup;Self Fed (12 oz while alt with solid trials) Oral Phase Thin WFL Pharyngeal Phase No overt signs or symptoms of aspiration Dysphagia Mechanically Altered Presentation Spoon;Self Fed (3 oz fruit cup) Oral Phase Prolonged mastication Pharyngeal Phase No overt signs or symptoms of aspiration Regular Presentation Self Fed (x6 bites cracker) Oral Phase Prolonged mastication Pharyngeal Phase Cough - Delayed (cough x1) Recommendations Liquids Consistency Recommendations Thin Diet Consistency Recommendation Dental soft (d/t dentures not present) Recommendations Dysphagia treatment;Set up with meals;Check on patients frequently throught out meals Risk for Aspiration Mild Compensatory Swallowing Strategies Upright as possible for all oral intake;Remain upright f or 30 minutes after meals;Alternate solids and liquids;Small bites/sips;Eat/feed slowly;Effo rtful swallow Recommended Form of Meds Meds with recommended liquid;Meds floated in puree (per pt preference) Summary Recommend thin with dental soft texture d/t upper denture not being present. Pt wi th prolonged mastication, however able to chew cracker when alternating with liquid. Staff Notified MD;RN Plan of Care Treatment Plan ST to follow;Dysphagia treatment;Follow up x1 to ensure tolerance Follow up treatments Swallow strategies;Diet tolerance monitoring;Patient/Family education Dysphagia Goals Group Home Goals Safe/efficient oral intake Pt will have safe/efficient oral intake Regular diet;New/revised goal;With min cues Short Term Goals Tolerate diet Pt will tolerate diet Dental soft;New/revised goal;With min supervision evin Romie DEEJAY Salazar - 09/08/2014 6:44 AM PDTFormatting of this note might be different from the o riginal. Progress Notes by DEEJAY Astorga at 09/08/1444 Author: DEEJAY Astorga Service: Wrapper Stripper Author Type: Nurse Practitioner Filed: 09/08/14 1248 Date of Service: 09/08/14643 Status: Signed Tile And Marble Setter: DEEJAY Astorga (Nurse Practitioner) [facility] Service: Wrapper Stripper Progress Note Kait Escobar 44 y.o. Hospital Day: LOS: 3 days Post-Op Day: * No surgery found * Consulting Physicians Treatment Team: Admitting Provider: Brad Granados MD SUBJECTIVE Patient Summary: The patient is a 44 y.o. female with significant past medical history of RA on sulfasalazin e and azathioprine, HTN, HLD, hypothyroidism, chronic constipation, DM type 2, bipolar d/o, sustance abuse, smoker, COPD and hypomagnesemia who was brought by family members to the ED in [place] on 09/04. Per the H&P there her family could not reach her by phone and went to her house. She was slow to answer the door and family reported she rushed back to her bed an d seemed very confused. They observed pills scattered around the room. CT head was unremarkable. She was hyperventilating and ABG showed severe respiratory alkalo sis (pH 7.63/PCO2 12/PO2 75/bicarb 12.6 with serum bicarb 14 with AG 25 at that time). UDS w as positive for methamphetamines and opioids. Her transaminases were mildly elevated in low 100s, serum calcium was elevated at 11.5. 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 Glucose was 170 in the ED. She appeared severely de hydrated. Salicylate, ETOH, APAP levels were neg. CK 1811. Normal amylase, lipase. WBC 10.8, H/H 13/39.7, PLT 358 with no left-shift. Ammonia 34. She also had a CTA PE study that was s uboptimal but showed no e/o PE; and incidental right lung base caviatary lesion present sinc e 2009 and decreased in size. ICU Timeline: 09/05/14: Admitted to ICU with metabolic derangement/acidosis. Intubated 09/06/14: Remains vented 09/07/14: Extubated -- failed swallow eval. More alert. Needs ongoing rehab Events Overnight: Remains extubated. OOB to chair. ST to re eval for swallow. Appe ars sedate. Neurontin dc'd d/t lethargy. SCHEDULED MEDICATIONS azaTHIOprine 50 mg Oral BID chlorhexidine gluconate 15 mL Mouth/Throat Q12H cloNIDine 1 patch Transdermal Weekly docusate sodium 100 mg Oral BID Or docusate 100 mg Per OG Tube BID enalaprilat 1.25 mg Intravenous Q6H gabapentin 300 mg Oral TID heparin (porcine) 5000 unit/0.5mL 5,000 Units Subcutaneous Q8H insulin aspart 0-3 Units Subcutaneous Nightly insulin aspart 0-6 Units Subcutaneous TID AC ipratropium-albuterol 3 mL Nebulization Q4H WA levETIRAcetam 500 mg Intravenous Q12H levothyroxine 200 mcg Oral QAM AC metoprolol 50 mg Oral BID nystatin Topical BID nystatin Topical BID venlafaxine 75 mg Oral TID WC verapamil 160 mg Oral 3 times per day ziprasidone 80 mg Oral BID WC CONTINUOUS INFUSIONS dextrose dextrose 5 % and 0.2 % NaCl 125 mL/hr at 09/07/14 0857 insulin regular 1 unit/mL 7 Units/hr (09/06/14 1100) morphine Stopped (09/07/14 1408) propofol Stopped (09/07/14 1408) sodium chloride (IV) 30 mL/hr at 09/06/14 1051 sodium chloride (IV) OBJECTIVE VITAL SIGNS Temp: [98.3 F (36.8 C)-99.2 F (37.3 C)] 98.4 F (36.9 C) Heart Rate: [73-91] 91 Resp: [14-36] 16 BP: (107-212)/(65-111) 155/81 mmHg Arterial Line BP: (125-149)/(63-78) 125/63 mmHg FiO2 : [25 %-30 %] 25 % Intake/Output Summary (Last 24 hours) at 09/08/14 0644 Last data filed at 09/08/14 0416 Gross per 24 hour Intake 1958.4 ml Output 3790 ml Net -1831.6 ml EXAM GEN: sedate but awakes, poor coloring. NEURO: marc, eomi, alert and oriented, OOB to chair, grossly weak HEENT: sclerae clear, nonicteric, oral mucosa dry, pink, no exudates, no upper teeth, poor dentition lower teeth NECK: supple, trachea midline, no JVD HEART: Reg, tachy 120s, no murmur, rub or gallop LUNGS: Dim bases bilat, no wheezing, rales or rhonchi, symmetric chest expansion, ABD: soft, obese, nondistended, nontender to palpation, no masses EXTR: no edema, clubbing or cyanosis; hands with swan-neck deformities and feet deformities SKIN: warm, dry, no rash or mottling; erythema with mild excoriation under b/l breasts; mul tiple scattered old skin wounds/scars over b/l dorsal feet and shins, some nodular scars ove r b/l achilles area; faint light pink macular patches over upper thighs and left hip; b/l el bows with blanchable erythema and thickened skin; no e/o skin breakdown over the occiput, sc apulae, sacrum or heels LINES/TUBES: Linder 09/04 (OSH), L IJ TLC 09/06 DATA Recent Labs Lab 09/08/14 0415 09/07/14 0322 09/06/14 0845 WBC 10.01 9.18 9.22 RBC 3.62* 3.42* 3.56* HGB 11.8 11.1* 11.6 HCT 36.1 33.5* 33.7* MCV 99.7 97.9 94.6 MCH 32.5 32.3 32.6 MCHC 32.6 33.0 34.5 RDW 54.7* 55.6* 53.4* PLT 289 321 344 MPV 7.4 7.4 7.3 NEUTROABS 5.40 4.68 5.50 LYMPHSABS 2.63 2.81 2.22 MONOSABS 1.58* 1.49* 1.45* BASOSABS 0.06 0.03 0.04 EOSABS 0.34 0.16 0.02 Recent Labs Lab 09/08/14 0415 09/07/14 1154 09/07/14 0322 09/06/14 1223 09/06/14 0845 09/06/14 0108 09/05/14 1740 NA 139 -- 142 -- 151* 149* 144* 139 K 4.4 4.4 3.9 < > 3.9 3.5 2.8* 3.6 CL 106 -- 114* -- 115* 113* 106 104 CO2 27 -- 22* -- 26 23 22* 12* ANIONGAP 10 -- 10 -- 14 16 18 26* GLUF 129* -- 122* -- 110* 187* 276* 229* BUN 16 -- 16 -- 19 19 17 22 CREATININE 0.82 -- 0.89 -- 1.23* 1.00 0.94 1.07* BCR 20 -- 18 -- 16 19 18 21 CA 8.9 -- 8.7 -- 9.1 9.1 9.2 10.8* ALB -- -- -- -- -- -- 2.8* 3.5* GLOB -- -- -- -- -- -- 3.8 5.0* AG -- -- -- -- -- -- 0.7* 0.7* PROT -- -- -- -- -- -- 6.7 8.5* BILITOT -- -- -- -- -- -- 0.5 0.5 ALT -- -- -- -- -- -- 63 81* AST -- -- -- -- -- -- 36 55* EGFR >60 -- >60 -- 51* >60 >60 59* PHOS 4.8 -- 2.5 -- -- 3.1 1.2* 1.8* MG 1.3* 2.1 1.7 -- -- 2.6* 1.3* 1.4* < > = values in this interval not displayed. Recent Labs Lab 09/06/1410709/05/14 1740 INR 1.3 1.3 IMAGING X-ray Chest 1 View 09/07/2014 1. Unchanged tubes and lines without evidence of pneumothorax. 2. Developing mild perihilar interstitial edema and atelectasis. Xr Chest 1 View 09/06/2014 1. Tubes and lines in expected positions. 2. Blunting of the right costophren ic sulcus, suggesting a minimal pleural effusion or pleural thickening. 3. Mild scarring or atelectasis in the right lung base. Electronically signed by Tyree Garay MD on 7:08 AM PROBLEM LIST Active Problems: Diabetes mellitus, type 2 Hypertension Bipolar 2 disorder Current smoker RA (rheumatoid arthritis) Metabolic encephalopathy Kussmaul breathing Acute respiratory alkalosis Metabolic acidosis Methamphetamine abuse Drug overdose Hypokalemia Hypomagnesemia Hypophosphatemia Obesity (BMI 30.0-34.9) Sinus tachycardia ASSESSMENT & PLAN NEURO: Toxic metabolic encephalopathy: suspect toxin/ drug ingestion. Clearing Had seizure in the ED: likely also related to toxic ingestion and poss low phos may have contributed. Started on Keppra and will cont. Possible intentional OD and suicide attempt: suicide precautions. Will need crisis respo nse eval at d/c. Bipolar d/o:restart some home meds CV: Sinus tachycardia: reactive , RESOLVED PULM: Acute respiratory alkalosis: d/t underlying high AG metabolic acidosis. Normal lactate. Likely drug ingestion (possibly even a synthetic compound we cannot detect); less suspicious of ethylene glycol or methanol b/c of normal renal function and HIGH pH. Clinically fits sa licylate toxicity but salicylate level not elevated. Takes sulfasalazine which is metabolize d to aminosalicylic acid, but again, level normal. Discussed with metal hanging supervisor at [facility] [facility]. Could possibly be d/t methamphetamine intoxication. Unknown what medications she took in addition to this but no other meds on her home med list known to have this presentation. At OSH salicylate <5, ETOH <10. Osmolar gap 13. Acute respiratory failure with apnea and hyp oxemia: Now extubated. Chronic COPD: without exacerbation, prn albuterol. GI/NUTRITION: transaminitis at OSH: resolved. ? Related to medication. Had acute viral hepatitis scree n done in ED at OSH. start TF RENAL/LYTES: Acid-base disorder, as above. Venous CO2 now 27 BUN/Cr wnl. UO adequate. Hypokalemia (RESOLVED 4.4), hypophosphatemia (RESOLVED), hypomagnesemia (RESOLVED): repl acing aggressively and follow per protocol. lasix ID: Do not see e/o infection. Lactate 0.9 HEME: Mild leukocytosis: stress response. WBC 10K ENDO: DM type 2: HbA1c at OSH 5.3. Hyperglycemia: glucose in 200s. Off EndoTool, now on basal/bolus management MUSC/SKIN: RA: with joint deformities hands/feet. restart azathioprine for now. Multiple scars from wounds. Erythema over elbows and excoriation under breasts. Will get wound care to evaluate. PROPHYLAXIS: Stress ulcer prophylaxis: Pepcid DVT prophylaxis: SCDs, heparin Code Status: Full Code *Please bill 35 minutes of critical care time spent evaluating the patient, reviewing the d raghav and formulating a plan exclusive of all other procedures. DEEJAY Astorga 09/08/2014 6:44 AM onversion Tra nsaction, Provider Unknown - 09/08/2014 12:23 AM PDTFormatting of this note might be differe nt from the original. Nurse Progress Note by Beth Huang RN at 09/08/1422 Author: Beth Huang RN Service: (none) Author Type: Registered Nurse Filed: 09/08/148 Date of Service: 09/08/1422 Status: Signed Tile And Marble Setter: Beth Huang RN (Registered Nurse) RN talking with pt during midnight reassessment found pt to have increased RR and anxious.R N talked with pt about slow deep breathing, RN talked with pt and asked if she knew why she was in the hospital, pt stated that she remembers taking "a lot" of hydrocodone for a drug overdose, however doesn't remember how much. civil cadd technician notified. 1mg ativan ordered Q4 for anxiety at this time. Will continue to monitor. Beth Huang RN onver james Transaction, Provider Unknown - 09/07/2014 9:14 PM PDT Nurse Progress Note by Beth Huang RN at 09/07/142113 Author: Beth Huang RN Service: (none) Author Type: Registered Nurse Filed: 09/07/142114 Date of Service: 09/07/142113 Status: Signed Tile And Marble Setter: Beth Huang RN (Registered Nurse) Per day Shift RN Pt is NPO d/t coughing and choking on water post extubation, RN stated pt is ok to have ice chips but no oral medications at this time. Will continue to monitor. Shaniqua Huang RN onver james Transaction, Provider Unknown - 09/07/2014 2:04 PM PDT Case Management by EMA Verma at 09/07/141403 Author: EMA Verma Service: (none) Author Type: Feeder Catcher Tobacco Filed: 09/07/141404 Date of Service: 09/07/141403 Status: Signed Tile And Marble Setter: EMA Verma (Feeder Catcher Tobacco) Placed t/c to pt's son Robson [phone] . He is on his way into the hospital and will b e here in about 1 hour. I will try to meet with him to obtain info about pt. He was not ab le to talk on the phone as he was driving and cell range was not good. yler Bear MD - 09/07/2014 1:49 PM PDTFormatting of this note might be different from th e original. Progress Notes by Tyler Edwards MD at 09/07/14 0382 Author: Tyler Edwards MD Service: Nephrology Author Type: Physician Filed: 09/07/14 1351 Date of Service: 09/07/14 1349 Status: Signed Tile And Marble Setter: Tyler Edwards MD (Physician) Noted Normalization of Cr and electrolytes. Bp is controlled and ACID BASE IS improved. Pt was not examined. Will Sign off at this time . Should be there any concerns , please call with questions or reconsult. asper Rollins MD - 09/07/2014 1:38 PM PDT Progress Notes by Casper Rollins MD at 09/07/14 9274 Author: Casper Rollins MD Service: Wrapper Stripper Author Type: Wrapper Stripper Filed: 09/07/14 9333 Date of Service: 09/07/147 Status: Signed Tile And Marble Setter: Casper Rollins MD (Physician) [facility] Service: Wrapper Stripper Progress Note Kait Escobar 44 y.o. Hospital Day: LOS: 2 days Post-Op Day: * No surgery found * Consulting Physicians Treatment Team: Consulting Physician: Yuniel Bradley MD Admitting Provider: Brad Granados MD SUBJECTIVE Patient Summary: The patient is a 44 y.o. female with significant past medical history of RA on sulfasalazin e and azathioprine, HTN, HLD, hypothyroidism, chronic constipation, DM type 2, bipolar d/o, sustance abuse, smoker, COPD and hypomagnesemia who was brought by family members to the ED in [place] on 09/04. Per the H&P there her family could not reach her by phone and went to her house. She was slow to answer the door and family reported she rushed back to her bed an d seemed very confused. They observed pills scattered around the room. CT head was unremarkable. She was hyperventilating and ABG showed severe respiratory alkalo sis (pH 7.63/PCO2 12/PO2 75/bicarb 12.6 with serum bicarb 14 with AG 25 at that time). UDS w as positive for methamphetamines and opioids. Her transaminases were mildly elevated in low 100s, serum calcium was elevated at 11.5. 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 Glucose was 170 in the ED. She appeared severely de hydrated. Salicylate, ETOH, APAP levels were neg. CK 1811. Normal amylase, lipase. WBC 10.8, H/H 13/39.7, PLT 358 with no left-shift. Ammonia 34. She also had a CTA PE study that was s uboptimal but showed no e/o PE; and incidental right lung base caviatary lesion present sinc e 2009 and decreased in size. ICU Timeline: Events Overnight: Remains vented SCHEDULED MEDICATIONS albuterol 6 puff Inhalation Q4H azaTHIOprine 50 mg Oral BID chlorhexidine gluconate 15 mL Mouth/Throat Q12H docusate sodium 100 mg Oral BID Or docusate 100 mg Per OG Tube BID gabapentin 300 mg Oral TID heparin (porcine) 5000 unit/0.5mL 5,000 Units Subcutaneous Q8H ipratropium 2 puff Inhalation Q4H levETIRAcetam 500 mg Intravenous Q12H levothyroxine 200 mcg Oral QAM AC metoprolol 50 mg Oral BID nystatin Topical BID nystatin Topical BID venlafaxine 75 mg Oral TID WC verapamil 160 mg Oral 3 times per day ziprasidone 80 mg Oral BID WC CONTINUOUS INFUSIONS dextrose 5 % and 0.2 % NaCl 125 mL/hr at 09/07/14 0857 insulin regular 1 unit/mL 7 Units/hr (09/06/14 1100) morphine 2.5 mg/hr (09/07/14 0848) propofol 40 mcg/kg/min (09/07/14 1142) sodium chloride (IV) 30 mL/hr at 09/06/14 1051 sodium chloride (IV) OBJECTIVE VITAL SIGNS Temp: [98.3 F (36.8 C)-98.8 F (37.1 C)] 98.3 F (36.8 C) Heart Rate: [73-113] 73 Resp: [14-34] 17 BP: (107-174)/(65-101) 107/65 mmHg Arterial Line BP: (125-208)/(63-93) 125/63 mmHg FiO2 : [25 %-30 %] 30 % Intake/Output Summary (Last 24 hours) at 09/07/14 1338 Last data filed at 09/07/14 1200 Gross per 24 hour Intake 6330 ml Output 725 ml Net 5605 ml EXAM GEN: vented sedated , looks nad NEURO: marc, eomi, moves all 4 to verbal Stimuli HEENT: sclerae clear, nonicteric, oral mucosa dry, pink, no exudates, no upper teeth, poor dentition lower teeth NECK: supple, trachea midline, no JVD HEART: Reg, tachy 120s, no murmur, rub or gallop LUNGS: coarse bilat, no wheezing, rales or rhonchi, symmetric chest expansion, ABD: soft, obese, nondistended, nontender to palpation, no masses EXTR: no edema, clubbing or cyanosis; hands with swan-neck deformities and feet deformities SKIN: warm, dry, no rash or mottling; erythema with mild excoriation under b/l breasts; mul tiple scattered old skin wounds/scars over b/l dorsal feet and shins, some nodular scars ove r b/l achilles area; faint light pink macular patches over upper thighs and left hip; b/l el bows with blanchable erythema and thickened skin; no e/o skin breakdown over the occiput, sc apulae, sacrum or heels LINES/TUBES: Linder 09/04 (OSH), L IJ TLC 09/06, R rad Deb 09/06 DATA Recent Labs Lab 09/07/14 0322 09/06/14 0845 09/05/14 1740 WBC 9.18 9.22 11.13* RBC 3.42* 3.56* 4.46 HGB 11.1* 11.6 14.8 HCT 33.5* 33.7* 42.9 MCV 97.9 94.6 96.3 MCH 32.3 32.6 33.2 MCHC 33.0 34.5 34.5 RDW 55.6* 53.4* 53.4* PLT 321 344 393 MPV 7.4 7.3 7.6 NEUTROABS 4.68 5.50 8.71* LYMPHSABS 2.81 2.22 0.97* MONOSABS 1.49* 1.45* 1.39* BASOSABS 0.03 0.04 0.05 EOSABS 0.16 0.02 0.01 Recent Labs Lab 09/07/14 1154 09/07/14 0322 09/07/14 0105 09/06/14 1223 09/06/14 0845 09/06/14 0108 09/05/14 1740 NA -- 142 -- -- 151* 149* 144* 139 K 4.4 3.9 4.1 < > 3.9 3.5 2.8* 3.6 CL -- 114* -- -- 115* 113* 106 104 CO2 -- 22* -- -- 26 23 22* 12* ANIONGAP -- 10 -- -- 14 16 18 26* GLUF -- 122* -- -- 110* 187* 276* 229* BUN -- 16 -- -- 19 19 17 22 CREATININE -- 0.89 -- -- 1.23* 1.00 0.94 1.07* BCR -- 18 -- -- 16 19 18 21 CA -- 8.7 -- -- 9.1 9.1 9.2 10.8* ALB -- -- -- -- -- -- 2.8* 3.5* GLOB -- -- -- -- -- -- 3.8 5.0* AG -- -- -- -- -- -- 0.7* 0.7* PROT -- -- -- -- -- -- 6.7 8.5* BILITOT -- -- -- -- -- -- 0.5 0.5 ALT -- -- -- -- -- -- 63 81* AST -- -- -- -- -- -- 36 55* EGFR -- >60 -- -- 51* >60 >60 59* PHOS -- 2.5 -- -- -- 3.1 1.2* 1.8* MG 2.1 1.7 -- -- -- 2.6* 1.3* 1.4* < > = values in this interval not displayed. Recent Labs Lab 09/06/14 0108 09/05/14 1740 INR 1.3 1.3 IMAGING cxr stable, copd features PROBLEM LIST Active Problems: Diabetes mellitus, type 2 Hypertension Bipolar 2 disorder Current smoker RA (rheumatoid arthritis) Metabolic encephalopathy Kussmaul breathing Acute respiratory alkalosis Metabolic acidosis Methamphetamine abuse Drug overdose Hypokalemia Hypomagnesemia Hypophosphatemia Obesity (BMI 30.0-34.9) Sinus tachycardia ASSESSMENT & PLAN NEURO: Toxic metabolic encephalopathy: suspect toxin/ drug ingestion. Had seizure in the ED: likely also related to toxic ingestion and poss low phos may have contributed. Started on Keppra and will cont. Possible intentional OD and suicide attempt: suicide precautions. Will need crisis respo nse eval at d/c. Bipolar d/o:restart some home meds CV: Sinus tachycardia: reactive , improved PULM: Acute respiratory alkalosis: d/t underlying high AG metabolic acidosis. Normal lactate. Likely drug ingestion (possibly even a synthetic compound we cannot detect); less suspicious of ethylene glycol or methanol b/c of normal renal function and HIGH pH. Clinically fits sa licylate toxicity but salicylate level not elevated. Takes sulfasalazine which is metabolize d to aminosalicylic acid, but again, level normal. Discussed with metal hanging supervisor at [employer] [facility] of [facility]. Could possibly be d/t methamphetamine intoxication. Unknown what medications she took in addition to this but no other meds on her home med list known to have this presentation. At OSH salicylate <5, ETOH <10. Osmolar gap 13. Acute respiratory failure with apnea and hyp oxemia:daily sbt Chronic COPD: without exacerbation, prn albuterol. GI/NUTRITION: transaminitis at OSH: resolved. ? Related to medication. Had acute viral hepatitis scree n done in ED at OSH. start TF RENAL/LYTES: Acid-base disorder, as above. BUN/Cr wnl. UO adequate. Hypokalemia, hypophosphatemia, hypomagnesemia: replacing aggressively and follow per pro tocol. lasix ID: Do not see e/o infection. HEME: Mild leukocytosis: stress response. ENDO: DM type 2: HbA1c at OSH 5.3. Hyperglycemia: glucose in 200s. Have not yet started insulin gtt/Endotool b/c K+ so low. MUSC/SKIN: RA: with joint deformities hands/feet. restart azathioprine for now. Multiple scars from wounds. Erythema over elbows and excoriation under breasts. Will get wound care to evaluate. PROPHYLAXIS: Stress ulcer prophylaxis: Pepcid DVT prophylaxis: SCDs, heparin VAP bundle: chlorhexadine oral care, HOB >30 degrees. Code Status: Full Code *Please bill 50 minutes of critical care time spent evaluating the patient, reviewing the d raghav and formulating a plan exclusive of all other procedures. Casper Rollins MD 09/07/2014 1:38 PM onversion Transacti on, Provider Unknown - 09/06/2014 2:21 PM PDTFormatting of this note might be different fro m the original. Nurse Progress Note by Mary Mclean RN at 09/06/14 1421 Author: Mary Mclean RN Service: Wound/Ostomy Care Author Type: Registered Nurse Filed: 09/06/14 1432 Date of Service: 09/06/141420 Status: Signed Tile And Marble Setter: Mary Mclean RN (Registered Nurse) Patient seen today by compress trucker for evaluation due to low Pablo. Today's Pablo scale score is 12. Indicating the patient is at high risk of pressure ulcer development or injur y. Per ICU nurse coccyx and heels no signs of skin breakdown. Wound consult place for leg an elbows. Pt. On low air loss bed. SPOT in place. Care Plan in place. onver james Transaction, Provider Unknown - 09/06/2014 11:16 AM PDT Progress Notes by Angela Saenz RD, CD at 09/06/14 1116 Author: Angela Saenz RD, CD Service: (none) Author Type: Registered Dietitian Filed: 09/06/14 1117 Date of Service: 09/06/141115 Status: Signed Tile And Marble Setter: Angela Saenz RD, CD (Registered Dietitian) 09/06/14 1040 Subjective Timepoint Admit (routine ICU admit consult, TF) Pt c/o Pt was admitted with AMS, severe respiratory alkalosis, and toxic metabolic encephal opathy. Currently intubated and sedated. Diet Experience Self-selected diet(s) followed Unable to obtain diet or wt hx at this time as there is no f amily in the room. Fluid / Beverage Intake Oral Fluids Amount NPO Food Intake Amount of Food NPO Enteral Nutrition Intake Access OG tube. Parenteral Nutrition Intake Rate/Solution On IV fluids of NS at 30 mL/hr this AM. Will switch to D5 1/2NS at 125 mL/hr which will provide approximately 510 kcal/day. Sodium bicarb drip has been off. Propofol has been running at 25.9 mL/hr which provides approximately 683 kcal/day. Nutrition-Focused Physical Findings Skin Noted to have erythema over elbows and excoriation under breasts on admit. Biochemical data, medical tests, and procedures reviewed Biochemical data, medical tests, and procedures reviewed K+ 2.8, Phos 1.2, Mg 1.3 - all low . Concern for refeeding syndrome. Electrolytes being replaced per protocol. Na 144 (H). BUN and Cr are WNL. BG has been elevated in the 100s-200s, EndoTool insulin drip to be started p er discussion in rounds. Estimated Energy Needs Total Energy Estimated Needs 2766-9586 kcal/day Method for Estimating Needs 22-25 kcal/kg IBW Estimated Protein Needs Total Protein Estimated Needs 92-123 g protein/day Method for Estimating Needs 1.5-2 g protein/kg IBW Recommendations Recommended energy needs Initiate TF of Peptamen Bariatric at 15 mL/hr. Assuming 20-hour/da y continuous delivery, this will provide 300 kcal, 28 g protein, 300 mL total volume, and 25 2 mL free water. Add Beneprotein 1 scoop BID in water flushes for an additional 50 kcal and 12 g protein. Given dextrose-containing IV fluids and propofol requirements, limited calorie s and protein from TF can be provided without significantly exceeding estimated kcal/protein needs. Overall, TF plus Beneprotein, Propofol, and D5W will provide 1543 kcal and 40 g prot ein which supplies 25 kcal/kg IBW and 0.65 g protein/kg IBW. Will continue to monitor clinic al course and adjust TF goals as indicated based on tolerance, pt status, plan of care, labs , meds, IV fluids. Nutritional Risk Nutritional risk High Nutritional risk comment Inadequate oral intake related to inability to eat with mechanical ventilation as evidenced by NPO order. Follow up date 09/09/[address], CD, CNSC 09/06/2014 onver james Transaction, Provider Unknown - 09/06/2014 4:20 AM PDT Nurse Progress Note by Justina Reyes RN at 09/06/14419 Author: Justina Reyse RN Service: (none) Author Type: Registered Nurse Filed: 09/06/14420 Date of Service: 09/06/14419 Status: Signed Tile And Marble Setter: Justina Reyes, RN (Registered Nurse) Unable to complete pt admission documentation d/t pt family not present and pt is intubated . Thank you. onver james Transaction, Provider Unknown - 09/06/2014 2:08 AM PDT Progress Notes by Nelson Mayer RPH at 09/06/14207 Author: Nelson Mayer RPH Service: (none) Author Type: Pharmacist Filed: 09/06/14207 Date of Service: 09/06/14207 Status: Signed Tile And Marble Setter: Nelson Mayer RPH (Pharmacist) Note ccl 91.7ml/min meds reviewed Pharmacy will follow c 0208 docume nted in this encounter Plan of Treatment +--------+---------+ + + + | Date | Type | Specialty | Care Team | Description | +--------+---------+ + + + | 06/19/ | Office | Neurology | Jimbo Samayoa MD | | | 2019 | Visit | | [address] | | | | | | [place] | | | | | | [address] | | | | | | | | +--------+---------+ + + + | 07/26/ | Office | Pulmonology | Navdeep Grande, | | | 2019 | Visit | | [address] | | | | | | [place] | | | | | | [address] | | | | | | | | +--------+---------+ + + + documented as of this encounter Procedures + +--------+ + + + | Procedure Name | Priori | Date/Time | Associated Diagnosis | Comments | | | ty | | | | + +--------+ + + + | POC GLUCOSE | Routin | 09/11/2014 | | Results for this | | | e | 4:07 PM | | procedure are in the | | | | PDT | | results section. | + +--------+ + + + | POC GLUCOSE | Routin | 09/11/2014 | | Results for this | | | e | 11:03 AM | | procedure are in the | | | | PDT | | results section. | + +--------+ + + + | POC GLUCOSE | Routin | 09/11/2014 | | Results for this | | | e | 5:03 AM | | procedure are in the | | | | PDT | | results section. | + +--------+ + + + | EXTERNAL LAB: CBC | Routin | 09/11/2014 | | Results for this | | | e | 4:49 AM | | procedure are in the | | | | PDT | | results section. | + +--------+ + + + | PROCALCITONIN, SERUM | Routin | 09/11/2014 | | Results for this | | | e | 4:49 AM | | procedure are in the | | | | PDT | | results section. | + +--------+ + + + | PHOSPHORUS | Routin | 09/11/2014 | | Results for this | | | e | 4:49 AM | | procedure are in the | | | | PDT | | results section. | + +--------+ + + + | MAGNESIUM | Routin | 09/11/2014 | | Results for this | | | e | 4:49 AM | | procedure are in the | | | | PDT | | results section. | + +--------+ + + + | BASIC METABOLIC | Routin | 09/11/2014 | | Results for this | | PANEL | e | 4:49 AM | | procedure are in the | | | | PDT | | results section. | + +--------+ + + + | POC GLUCOSE | Routin | 09/10/2014 | | Results for this | | | e | 9:46 PM | | procedure are in the | | | | PDT | | results section. | + +--------+ + + + | POC GLUCOSE | Routin | 09/10/2014 | | Results for this | | | e | 4:14 PM | | procedure are in the | | | | PDT | | results section. | + +--------+ + + + | URINALYSIS, REFLEX | Routin | 09/10/2014 | | Results for this | | MICROSCOPIC AND/OR | e | 2:26 PM | | procedure are in the | | CULTURE | | PDT | | results section. | + +--------+ + + + | URINALYSIS, | Routin | 09/10/2014 | | Results for this | | MICROSCOPIC ONLY | e | 2:26 PM | | procedure are in the | | | | PDT | | results section. | + +--------+ + + + | CULTURE, URINE | Routin | 09/10/2014 | | Results for this | | | e | 2:26 PM | | procedure are in the | | | | PDT | | results section. | + +--------+ + + + | POC GLUCOSE | Routin | 09/10/2014 | | Results for this | | | e | 11:13 AM | | procedure are in the | | | | PDT | | results section. | + +--------+ + + + | XR CHEST 2 VIEWS | Routin | 09/10/2014 | | Results for this | | | e | 10:39 AM | | procedure are in the | | | | PDT | | results section. | + +--------+ + + + | CULTURE, BLOOD, 2ND | Timed | 09/10/2014 | | Results for this | | SPECIMEN (NON-ORD) | | 9:40 AM | | procedure are in the | | | | PDT | | results section. | + +--------+ + + + | CULTURE, BLOOD | Timed | 09/10/2014 | | Results for this | | | | 9:33 AM | | procedure are in the | | | | PDT | | results section. | + +--------+ + + + | EXTERNAL LAB: CBC | Routin | 09/10/2014 | | Results for this | | | e | 5:55 AM | | procedure are in the | | | | PDT | | results section. | + +--------+ + + + | PHOSPHORUS | Routin | 09/10/2014 | | Results for this | | | e | 5:55 AM | | procedure are in the | | | | PDT | | results section. | + +--------+ + + + | MAGNESIUM | Routin | 09/10/2014 | | Results for this | | | e | 5:55 AM | | procedure are in the | | | | PDT | | results section. | + +--------+ + + + | BASIC METABOLIC | Routin | 09/10/2014 | | Results for this | | PANEL | e | 5:55 AM | | procedure are in the | | | | PDT | | results section. | + +--------+ + + + | POC GLUCOSE | Routin | 09/10/2014 | | Results for this | | | e | 5:05 AM | | procedure are in the | | | | PDT | | results section. | + +--------+ + + + | POC GLUCOSE | Routin | 09/09/2014 | | Results for this | | | e | 9:20 PM | | procedure are in the | | | | PDT | | results section. | + +--------+ + + + | POC GLUCOSE | Routin | 09/09/2014 | | Results for this | | | e | 4:23 PM | | procedure are in the | | | | PDT | | results section. | + +--------+ + + + | POC GLUCOSE | Routin | 09/09/2014 | | Results for this | | | e | 11:39 AM | | procedure are in the | | | | PDT | | results section. | + +--------+ + + + | POC GLUCOSE | Routin | 09/09/2014 | | Results for this | | | e | 5:14 AM | | procedure are in the | | | | PDT | | results section. | + +--------+ + + + | EXTERNAL LAB: CBC | Routin | 09/09/2014 | | Results for this | | | e | 5:12 AM | | procedure are in the | | | | PDT | | results section. | + +--------+ + + + | PHOSPHORUS | Routin | 09/09/2014 | | Results for this | | | e | 5:12 AM | | procedure are in the | | | | PDT | | results section. | + +--------+ + + + | MAGNESIUM | Routin | 09/09/2014 | | Results for this | | | e | 5:12 AM | | procedure are in the | | | | PDT | | results section. | + +--------+ + + + | BASIC METABOLIC | Routin | 09/09/2014 | | Results for this | | PANEL | e | 5:12 AM | | procedure are in the | | | | PDT | | results section. | + +--------+ + + + | POC GLUCOSE | Routin | 09/08/2014 | | Results for this | | | e | 9:04 PM | | procedure are in the | | | | PDT | | results section. | + +--------+ + + + | POC GLUCOSE | Routin | 09/08/2014 | | Results for this | | | e | 4:30 PM | | procedure are in the | | | | PDT | | results section. | + +--------+ + + + | MAGNESIUM | Routin | 09/08/2014 | | Results for this | | | e | 12:20 PM | | procedure are in the | | | | PDT | | results section. | + +--------+ + + + | POC GLUCOSE | Routin | 09/08/2014 | | Results for this | | | e | 11:08 AM | | procedure are in the | | | | PDT | | results section. | + +--------+ + + + | POC GLUCOSE | Routin | 09/08/2014 | | Results for this | | | e | 5:14 AM | | procedure are in the | | | | PDT | | results section. | + +--------+ + + + | EXTERNAL LAB: CBC | Routin | 09/08/2014 | | Results for this | | | e | 4:15 AM | | procedure are in the | | | | PDT | | results section. | + +--------+ + + + | PHOSPHORUS | Routin | 09/08/2014 | | Results for this | | | e | 4:15 AM | | procedure are in the | | | | PDT | | results section. | + +--------+ + + + | MAGNESIUM | Routin | 09/08/2014 | | Results for this | | | e | 4:15 AM | | procedure are in the | | | | PDT | | results section. | + +--------+ + + + | BASIC METABOLIC | Routin | 09/08/2014 | | Results for this | | PANEL | e | 4:15 AM | | procedure are in the | | | | PDT | | results section. | + +--------+ + + + | POC GLUCOSE | Routin | 09/07/2014 | | Results for this | | | e | 9:49 PM | | procedure are in the | | | | PDT | | results section. | + +--------+ + + + | POC GLUCOSE | Routin | 09/07/2014 | | Results for this | | | e | 5:44 PM | | procedure are in the | | | | PDT | | results section. | + +--------+ + + + | POC GLUCOSE | Routin | 09/07/2014 | | Results for this | | | e | 2:06 PM | | procedure are in the | | | | PDT | | results section. | + +--------+ + + + | POC GLUCOSE | Routin | 09/07/2014 | | Results for this | | | e | 12:02 PM | | procedure are in the | | | | PDT | | results section. | + +--------+ + + + | POTASSIUM | Routin | 09/07/2014 | | Results for this | | | e | 11:54 AM | | procedure are in the | | | | PDT | | results section. | + +--------+ + + + | MAGNESIUM | Routin | 09/07/2014 | | Results for this | | | e | 11:54 AM | | procedure are in the | | | | PDT | | results section. | + +--------+ + + + | POC GLUCOSE | Routin | 09/07/2014 | | Results for this | | | e | 10:04 AM | | procedure are in the | | | | PDT | | results section. | + +--------+ + + + | POC GLUCOSE | Routin | 09/07/2014 | | Results for this | | | e | 7:57 AM | | procedure are in the | | | | PDT | | results section. | + +--------+ + + + | XR CHEST 1 VIEW | Routin | 09/07/2014 | | Results for this | | | e | 6:17 AM | | procedure are in the | | | | PDT | | results section. | + +--------+ + + + | POC GLUCOSE | Routin | 09/07/2014 | | Results for this | | | e | 5:52 AM | | procedure are in the | | | | PDT | | results section. | + +--------+ + + + | POC GLUCOSE | Routin | 09/07/2014 | | Results for this | | | e | 3:44 AM | | procedure are in the | | | | PDT | | results section. | + +--------+ + + + | EXTERNAL LAB: CBC | Routin | 09/07/2014 | | Results for this | | | e | 3:22 AM | | procedure are in the | | | | PDT | | results section. | + +--------+ + + + | PHOSPHORUS | Routin | 09/07/2014 | | Results for this | | | e | 3:22 AM | | procedure are in the | | | | PDT | | results section. | + +--------+ + + + | MAGNESIUM | Routin | 09/07/2014 | | Results for this | | | e | 3:22 AM | | procedure are in the | | | | PDT | | results section. | + +--------+ + + + | BASIC METABOLIC | Routin | 09/07/2014 | | Results for this | | PANEL | e | 3:22 AM | | procedure are in the | | | | PDT | | results section. | + +--------+ + + + | POC GLUCOSE | Routin | 09/07/2014 | | Results for this | | | e | 2:39 AM | | procedure are in the | | | | PDT | | results section. | + +--------+ + + + | POC GLUCOSE | Routin | 09/07/2014 | | Results for this | | | e | 1:35 AM | | procedure are in the | | | | PDT | | results section. | + +--------+ + + + | POTASSIUM | Routin | 09/07/2014 | | Results for this | | | e | 1:05 AM | | procedure are in the | | | | PDT | | results section. | + +--------+ + + + | POC GLUCOSE | Routin | 09/07/2014 | | Results for this | | | e | 12:29 AM | | procedure are in the | | | | PDT | | results section. | + +--------+ + + + | POC GLUCOSE | Routin | 09/06/2014 | | Results for this | | | e | 11:26 PM | | procedure are in the | | | | PDT | | results section. | + +--------+ + + + | POC GLUCOSE | Routin | 09/06/2014 | | Results for this | | | e | 10:22 PM | | procedure are in the | | | | PDT | | results section. | + +--------+ + + + | POTASSIUM | Routin | 09/06/2014 | | Results for this | | | e | 8:18 PM | | procedure are in the | | | | PDT | | results section. | + +--------+ + + + | POC GLUCOSE | Routin | 09/06/2014 | | Results for this | | | e | 8:16 PM | | procedure are in the | | | | PDT | | results section. | + +--------+ + + + | POC GLUCOSE | Routin | 09/06/2014 | | Results for this | | | e | 6:27 PM | | procedure are in the | | | | PDT | | results section. | + +--------+ + + + | POTASSIUM | Routin | 09/06/2014 | | Results for this | | | e | 4:28 PM | | procedure are in the | | | | PDT | | results section. | + +--------+ + + + | POC GLUCOSE | Routin | 09/06/2014 | | Results for this | | | e | 4:22 PM | | procedure are in the | | | | PDT | | results section. | + +--------+ + + + | POC GLUCOSE | Routin | 09/06/2014 | | Results for this | | | e | 2:12 PM | | procedure are in the | | | | PDT | | results section. | + +--------+ + + + | URINALYSIS WITH | Routin | 09/06/2014 | | Results for this | | MICROSCOPIC WITH | e | 1:36 PM | | procedure are in the | | CULTURE IF INDICATED | | PDT | | results section. | + +--------+ + + + | PROTEIN/CREATININE | Routin | 09/06/2014 | | Results for this | | RATIO, URINE | e | 1:36 PM | | procedure are in the | | | | PDT | | results section. | + +--------+ + + + | SODIUM, URINE, | Routin | 09/06/2014 | | Results for this | | RANDOM | e | 1:36 PM | | procedure are in the | | | | PDT | | results section. | + +--------+ + + + | PROTEIN, URINE, | Routin | 09/06/2014 | | Results for this | | RANDOM | e | 1:36 PM | | procedure are in the | | | | PDT | | results section. | + +--------+ + + + | CREATININE, URINE, | Routin | 09/06/2014 | | Results for this | | RANDOM | e | 1:36 PM | | procedure are in the | | | | PDT | | results section. | + +--------+ + + + | CHLORIDE, URINE, | Routin | 09/06/2014 | | Results for this | | RANDOM | e | 1:36 PM | | procedure are in the | | | | PDT | | results section. | + +--------+ + + + | POC GLUCOSE | Routin | 09/06/2014 | | Results for this | | | e | 1:05 PM | | procedure are in the | | | | PDT | | results section. | + +--------+ + + + | URIC ACID | Routin | 09/06/2014 | | Results for this | | | e | 12:23 PM | | procedure are in the | | | | PDT | | results section. | + +--------+ + + + | BASIC METABOLIC | Routin | 09/06/2014 | | Results for this | | PANEL | e | 12:23 PM | | procedure are in the | | | | PDT | | results section. | + +--------+ + + + | POC GLUCOSE | Routin | 09/06/2014 | | Results for this | | | e | 12:05 PM | | procedure are in the | | | | PDT | | results section. | + +--------+ + + + | POC GLUCOSE | Routin | 09/06/2014 | | Results for this | | | e | 10:59 AM | | procedure are in the | | | | PDT | | results section. | + +--------+ + + + | POC CG 4, ISTAT | Routin | 09/06/2014 | | Results for this | | ARTERIAL | e | 10:23 AM | | procedure are in the | | | | PDT | | results section. | + +--------+ + + + | EXTERNAL LAB: CBC | Routin | 09/06/2014 | | Results for this | | | e | 8:45 AM | | procedure are in the | | | | PDT | | results section. | + +--------+ + + + | PHOSPHORUS | Routin | 09/06/2014 | | Results for this | | | e | 8:45 AM | | procedure are in the | | | | PDT | | results section. | + +--------+ + + + | MAGNESIUM | Routin | 09/06/2014 | | Results for this | | | e | 8:45 AM | | procedure are in the | | | | PDT | | results section. | + +--------+ + + + | BASIC METABOLIC | Routin | 09/06/2014 | | Results for this | | PANEL | e | 8:45 AM | | procedure are in the | | | | PDT | | results section. | + +--------+ + + + | GRAM STAIN, REFLEX | Timed | 09/06/2014 | | Results for this | | SPUTUM CULTURE | | 5:52 AM | | procedure are in the | | | | PDT | | results section. | + +--------+ + + + | ECG 12 LEAD | Routin | 09/06/2014 | | Results for this | | | e | 4:52 AM | | procedure are in the | | | | PDT | | results section. | + +--------+ + + + | POC GLUCOSE | Routin | 09/06/2014 | | Results for this | | | e | 4:45 AM | | procedure are in the | | | | PDT | | results section. | + +--------+ + + + | HEMOGLOBIN A1C | Routin | 09/06/2014 | | Results for this | | | e | 4:44 AM | | procedure are in the | | | | PDT | | results section. | + +--------+ + + + | CK TOTAL | Routin | 09/06/2014 | | Results for this | | | e | 4:44 AM | | procedure are in the | | | | PDT | | results section. | + +--------+ + + + | XR CHEST 1 VIEW | Routin | 09/06/2014 | | Results for this | | | e | 3:19 AM | | procedure are in the | | | | PDT | | results section. | + +--------+ + + + | POC CG 4, ISTAT | Routin | 09/06/2014 | | Results for this | | ARTERIAL | e | 3:12 AM | | procedure are in the | | | | PDT | | results section. | + +--------+ + + + | MRSA NAAT | Routin | 09/06/2014 | | Results for this | | | e | 2:27 AM | | procedure are in the | | | | PDT | | results section. | + +--------+ + + + | XR CHEST 1 VIEW | Routin | 09/06/2014 | | Results for this | | | e | 2:10 AM | | procedure are in the | | | | PDT | | results section. | + +--------+ + + + | OSMOLALITY, URINE | Routin | 09/06/2014 | | Results for this | | | e | 1:30 AM | | procedure are in the | | | | PDT | | results section. | + +--------+ + + + | POC CG 4, ISTAT | Routin | 09/06/2014 | | Results for this | | ARTERIAL | e | 1:15 AM | | procedure are in the | | | | PDT | | results section. | + +--------+ + + + | PTT | Routin | 09/06/2014 | | Results for this | | | e | 1:08 AM | | procedure are in the | | | | PDT | | results section. | + +--------+ + + + | PROTIME INR | Routin | 09/06/2014 | | Results for this | | | e | 1:08 AM | | procedure are in the | | | | PDT | | results section. | + +--------+ + + + | PHOSPHORUS | Routin | 09/06/2014 | | Results for this | | | e | 1:08 AM | | procedure are in the | | | | PDT | | results section. | + +--------+ + + + | OSMOLALITY, SERUM | Routin | 09/06/2014 | | Results for this | | | e | 1:08 AM | | procedure are in the | | | | PDT | | results section. | + +--------+ + + + | MAGNESIUM | Routin | 09/06/2014 | | Results for this | | | e | 1:08 AM | | procedure are in the | | | | PDT | | results section. | + +--------+ + + + | COMPREHENSIVE | Routin | 09/06/2014 | | Results for this | | METABOLIC PANEL | e | 1:08 AM | | procedure are in the | | | | PDT | | results section. | + +--------+ + + + | CT ANGIOGRAM | Routin | 09/05/2014 | | Results for this | | PULMONARY | e | 10:34 PM | | procedure are in the | | | | PDT | | results section. | + +--------+ + + + | ECG 12 LEAD | Routin | 09/05/2014 | | Results for this | | | e | 7:36 PM | | procedure are in the | | | | PDT | | results section. | + +--------+ + + + | POC CG 4, ISTAT | Routin | 09/05/2014 | | Results for this | | ARTERIAL | e | 6:23 PM | | procedure are in the | | | | PDT | | results section. | + +--------+ + + + | HISTORICAL LAB PANEL | Routin | 09/05/2014 | | Results for this | | RESULT | e | 5:40 PM | | procedure are in the | | | | PDT | | results section. | + +--------+ + + + | PHOSPHORUS | Routin | 09/05/2014 | | Results for this | | | e | 5:40 PM | | procedure are in the | | | | PDT | | results section. | + +--------+ + + + | MAGNESIUM | Routin | 09/05/2014 | | Results for this | | | e | 5:40 PM | | procedure are in the | | | | PDT | | results section. | + +--------+ + + + | LACTIC ACID | Routin | 09/05/2014 | | Results for this | | | e | 5:40 PM | | procedure are in the | | | | PDT | | results section. | + +--------+ + + + | KETONES, BLOOD | Routin | 09/05/2014 | | Results for this | | | e | 5:40 PM | | procedure are in the | | | | PDT | | results section. | + +--------+ + + + | SALICYLATE LEVEL | Routin | 09/05/2014 | | Results for this | | | e | 5:40 PM | | procedure are in the | | | | PDT | | results section. | + +--------+ + + + | CT HEAD WO CONTRAST | Routin | 09/04/2014 | | Results for this | | | e | 10:35 PM | | procedure are in the | | | | PDT | | results section. | + +--------+ + + + | XR CHEST 1 VIEW | Routin | 09/04/2014 | | Results for this | | | e | 10:34 PM | | procedure are in the | | | | PDT | | results section. | + +--------+ + + + documented in this encounter Results POC Glucose (09/11/2014 4:07 PM PDT) + + + + + + | Component | Value | Ref Range | Performed | Pathologist | | | | | At | Signature | + + + + + + | Glucose, | 176 (H)Comment: Testing | 65 - 99 mg/dL | EXTERNAL | | | Fingerstick | performed at [facility];[address] | | [address] | | | | [address];[place], [place] | | | | | | [address] | | | | + + + + + + + + | Specimen | + + | | + + + +---------+ + + | Performing | Address | City/State/Zipcode | Phone Number | | Organization | | | | + +---------+ + + | EXTERNAL LAB | | | | + +---------+ + + POC Glucose (09/11/2014 11:03 AM PDT) + + + + + + | Component | Value | Ref Range | Performed | Pathologist | | | | | At | Signature | + + + + + + | Glucose, | 200 (H)Comment: Testing | 65 - 99 mg/dL | EXTERNAL | | | Fingerstick | performed at [facility];[address] | | LAB | | | | [address];[place] | | | | | | [address] | | | | + + + + + + + + | Specimen | + + | | + + + +---------+ + + | Performing | Address | City/State/Zipcode | Phone Number | | Organization | | | | + +---------+ + + | EXTERNAL LAB | | | | + +---------+ + + POC Glucose (09/11/2014 5:03 AM PDT) + + + + + + | Component | Value | Ref Range | Performed | Pathologist | | | | | At | Signature | + + + + + + | Glucose, | 190 (H)Comment: Testing | 65 - 99 mg/dL | EXTERNAL | | | Fingerstick | performed at [facility];[address] | | LAB | | | | [address];[place], [place] | | | | | | [address] | | | | + + + + + + + + | Specimen | + + | | + + + +---------+ + + | Performing | Address | City/State/Zipcode | Phone Number | | Organization | | | | + +---------+ + + | EXTERNAL LAB | | | | + +---------+ + + Procalcitonin (09/11/2014 4:49 AM PDT) + + + + + + | Component | Value | Ref Range | Performed | Pathologist | | | | | At | Signature | + + + + + + | Source | PLASMAComment: Testing | | EXTERNAL | | | | performed at [facility];[address] | | LAB | | | | [address];[place] | | | | | | [address] | | | | + + + + + + | PROCALCITON | <0.05Comment: | ng/mL | EXTERNAL | | | IN | INTERPRETIVE | | LAB | | | | INFORMATION: | | | | | | PROCALCITONIN PCT <= | | | | | | 0.5 ng/mL: Low risk | | | | | | for progression to | | | | | | severe systemic | | | | | | bacterial infection | | | | | | (severe sepsis/septic | | | | | | shock). Does not | | | | | | exclude an infection, | | | | | | because localized | | | | | | infections may be | | | | | | associated with such low | | | | | | levels. If PCT is | | | | | | measured very early | | | | | | after bacterial | | | | | | challenge (usually <6 | | | | | | hours), results may | | | | | | still be low and | | | | | | should re-assess PCT | | | | | | 6-24 hours later. PCT | | | | | | >0.5 and <= 2 ng/mL: | | | | | | Moderate risk for | | | | | | progression to severe | | | | | | systemic infection | | | | | | (severe sepsis/septic | | | | | | shock). Other | | | | | | conditions are known | | | | | | to elevate PCT, patient | | | | | | should be closely | | | | | | monitored both | | | | | | clinically and by | | | | | | re-assessing PCT | | | | | | within 6-24 hours. PCT > | | | | | | 2 ng/mL: High | | | | | | likelihood for | | | | | | progression to severe | | | | | | systemic bacterial | | | | | | infection (severe | | | | | | sepsis/septic shock). | | | | | | PCT >= 10 ng/mL: | | | | | | High likelihood of | | | | | | severe sepsis or septic | | | | | | shock.Testing performed | | | | | | at [facility];[address] | | | | [address];[place] [address] | | | | + + + + + + + + | Specimen | + + | | + + + +---------+ + + | Performing | Address | City/State/Zipcode | Phone Number | | Organization | | | | + +---------+ + + | EXTERNAL LAB | | | | + +---------+ + + External Lab: CBC (09/11/2014 4:49 AM PDT) + + + + + + | Component | Value | Ref Range | Performed | Pathologist | | | | | At | Signature | + + + + + + | WBC | 11.66 (H)Comment: | 3.80 - 11.00 | EXTERNAL | | | | Testing performed at | K/uL | LAB | | | | [facility], [address] [facility] | | | | | | [place] | | | | | | [address] | | | | + + + + + + | RED CELL | 3.52 (L)Comment: Testing | 3.70 - 5.10 | EXTERNAL | | | COUNT | performed at [facility], [address] | M/uL | LAB | | | | [address], | | | | | | [place] [address] | | | | + + + + + + | Hgb | 11.4Comment: Testing | 11.3 - 15.5 | EXTERNAL | | | | performed at [facility], [address] | g/dL | LAB | | | | [address], | | | | | | [place] [address] | | | | + + + + + + | Hematocrit, | 34.9Comment: Testing | 34.0 - 46.0 % | EXTERNAL | | | POC | performed at [facility], [address] | | LAB | | | | [address], | | | | | | [place] [address] | | | | + + + + + + | MCV | 99.0Comment: Testing | 80.0 - 100.0 fl | EXTERNAL | | | | performed at [facility], [address] | | LAB | | | | [address], | | | | | | [place] [address] | | | | + + + + + + | MCH | 32.4Comment: Testing | 27.0 - 34.0 pg | EXTERNAL | | | | performed at [facility], [address] | | LAB | | | | [address], | | | | | | [place] [address] | | | | + + + + + + | MCHC | 32.7Comment: Testing | 32.0 - 35.5 | EXTERNAL | | | | performed at [facility], [address] | g/dL | LAB | | | | [address], | | | | | | [place] [address] | | | | + + + + + + | RDW-CV | 55.6 (H)Comment: Testing | 37 - 53 fl | EXTERNAL | | | | performed at [facility], [address] | | LAB | | | | [address], | | | | | | [place] [address] | | | | + + + + + + | Platelet | 250Comment: Testing | 150 - 400 K/uL | EXTERNAL | | | Count | performed at [facility], [address] | | LAB | | | Plasma | [address], | | | | | | [place] [address] | | | | + + + + + + | MPV | 8.8Comment: Testing | fl | EXTERNAL | | | | performed at [facility], [address] | | LAB | | | | [address], | | | | | | [place] [address] | | | | + + + + + + | Differentia | AUTOMATEDComment: | | EXTERNAL | | | l Type | Testing performed at | | LAB | | | | [facility], [address] | | | | | | [place] | | | | | | [address] | | | | + + + + + + | % Segmented | 65.20Comment: Testing | % | EXTERNAL | | | | performed at [facility], [address] | | LAB | | | Neutrophils | [address], | | | | | | [place] [address] | | | | + + + + + + | % | 19.01Comment: Testing | % | EXTERNAL | | | Lymphocytes | performed at [facility], [address] | | LAB | | | | [address], | | | | | | [place] [address] | | | | + + + + + + | % Monocytes | 13.64Comment: Testing | % | EXTERNAL | | | | performed at [facility], [address] | | LAB | | | | [address], | | | | | | [place] [address] | | | | + + + + + + | % | 1.60Comment: Testing | % | EXTERNAL | | | Eosinophils | performed at [facility], [address] | | LAB | | | | [address], | | | | | | [place] [address] | | | | + + + + + + | % Basophils | 0.55Comment: Testing | % | EXTERNAL | | | | performed at [facility], [address] | | LAB | | | | [address], | | | | | | [place] [address] | | | | + + + + + + | Absolute | 7.60 (H)Comment: Testing | 1.90 - 7.40 | EXTERNAL | | | Segmented | performed at [facility], [address] | K/uL | LAB | | | Neutrophils | [address], | | | | | | [place] [address] | | | | + + + + + + | Absolute | 2.22Comment: Testing | 1.00 - 3.90 | EXTERNAL | | | Lymphocytes | performed at [facility], [address] | K/uL | LAB | | | | [address], | | | | | | [place] [address] | | | | + + + + + + | Absolute | 1.59 (H)Comment: Testing | 0.00 - 0.80 | EXTERNAL | | | Monocytes | performed at [facility], [address] | K/uL | LAB | | | | [address], | | | | | | [place] [address] | | | | + + + + + + | Absolute | 0.19Comment: Testing | 0.00 - 0.50 | EXTERNAL | | | Eosinophils | performed at [facility], [address] | K/uL | LAB | | | | [address], | | | | | | [place] [address] | | | | + + + + + + | Absolute | 0.07Comment: Testing | 0.00 - 0.10 | EXTERNAL | | | Basophils | performed at [facility], [address] | K/uL | LAB | | | | [address], | | | | | | [place] [address] | | | | + + + + + + + + | Specimen | + + | Blood specimen | | (specimen) | + + + +---------+ + + | Performing | Address | City/State/Zipcode | Phone Number | | Organization | | | | + +---------+ + + | EXTERNAL LAB | | | | + +---------+ + + Phosphorus (09/11/2014 4:49 AM PDT) + + + + + + | Component | Value | Ref Range | Performed | Pathologist | | | | | At | Signature | + + + + + + | PHOSPHORUS | 3.9Comment: Testing | 2.3 - 4.8 mg/dL | EXTERNAL | | | | performed at [facility];[address] | | LAB | | | | [address];[place], [place] | | | | | | [address] | | | | + + + + + + + + | Specimen | + + | Blood specimen | | (specimen) | + + + +---------+ + + | Performing | Address | City/State/Zipcode | Phone Number | | Organization | | | | + +---------+ + + | EXTERNAL LAB | | | | + +---------+ + + Magnesium (09/11/2014 4:49 AM PDT) + + + + + + | Component | Value | Ref Range | Performed | Pathologist | | | | | At | Signature | + + + + + + | Magnesium | 1.7Comment: Testing | 1.7 - 2.4 mg/dL | EXTERNAL | | | | performed at [facility];[address] | | LAB | | | | [address];[place] | | | | | | [address] | | | | + + + + + + + + | Specimen | + + | Blood specimen | | (specimen) | + + + +---------+ + + | Performing | Address | City/State/Zipcode | Phone Number | | Organization | | | | + +---------+ + + | EXTERNAL LAB | | | | + +---------+ + + Basic Metabolic Panel (09/11/2014 4:49 AM PDT) + + + + + + | Component | Value | Ref Range | Performed | Pathologist | | | | | At | Signature | + + + + + + | Na | 136Comment: Testing | 135 - 143 | EXTERNAL | | | | performed at [facility];[address] | mmol/L | LAB | | | | [address];[place] | | | | | | [address] | | | | + + + + + + | K | 3.8Comment: Testing | 3.5 - 4.9 | EXTERNAL | | | | performed at [facility];[address] | mmol/L | LAB | | | | [address];[place] | | | | | | [address] | | | | + + + + + + | Cl | 101Comment: Testing | 99 - 109 mmol/L | EXTERNAL | | | | performed at [facility];[address] | | LAB | | | | [address];[place] | | | | | | [address] | | | | + + + + + + | CO2 | 29Comment: Testing | 23 - 32 mmol/L | EXTERNAL | | | | performed at [facility];[address] | | LAB | | | | [address];[place] | | | | | | [address] | | | | + + + + + + | Anion Gap | 11Comment: Testing | 5 - 20 mmol/L | EXTERNAL | | | | performed at [facility];[address] | | LAB | | | | [address];[place] | | | | | | [address] | | | | + + + + + + | Glucose, | 184 (H)Comment: Testing | 65 - 99 mg/dL | EXTERNAL | | | Fasting | performed at [facility];[address] | | LAB | | | | [address];[place] | | | | | | [address] | | | | + + + + + + | BUN | 10Comment: Testing | 8 - 25 mg/dL | EXTERNAL | | | | performed at [facility];[address] | | LAB | | | | [address];[place] | | | | | | [address] | | | | + + + + + + | Creatinine | 0.82Comment: Testing | 0.50 - 1.00 | EXTERNAL | | | | performed at [facility];[address] | mg/dL | LAB | | | | [address];[place] | | | | | | [address] | | | | + + + + + + | BUN/Creatin | 12Comment: Testing | | EXTERNAL | | | ine Ratio | performed at [facility];[address] | | LAB | | | | [address];[place] | | | | | | [address] | | | | + + + + + + | Calcium | 9.1Comment: Testing | 8.5 - 10.5 | EXTERNAL | | | | performed at [facility];[address] | mg/dL | LAB | | | | [address];[place] | | | | | | [address] | | | | + + + + + + | Estimated | >60Comment: GFR <60: | mL/min/1.73m2 | EXTERNAL | | | GFR | CHRONIC KIDNEY DISEASE, | | LAB | | | | IF FOUND OVER A 3 MONTH | | | | | | PERIOD.GFR <15: KIDNEY | | | | | | FAILURE.FOR | | | | | | AMERICANS, MULTIPLY THE | | | | | | CALCULATED GFR BY | | | | | | 1.210.Testing performed | | | | | | at [facility];[address] [place] [address] | | | | | | [facility];[place] [address] | | | | + + + + + + + + | Specimen | + + | Blood specimen | | (specimen) | + + + +---------+ + + | Performing | Address | City/State/Zipcode | Phone Number | | Organization | | | | + +---------+ + + | EXTERNAL LAB | | | | + +---------+ + + POC Glucose (09/10/2014 9:46 PM PDT) + + + + + + | Component | Value | Ref Range | Performed | Pathologist | | | | | At | Signature | + + + + + + | Glucose, | 194 (H)Comment: Testing | 65 - 99 mg/dL | EXTERNAL | | | Fingerstick | performed at [facility];[address] | | LAB | | | | [address] [facility];[place], [place] | | | | | | [address] | | | | + + + + + + + + | Specimen | + + | | + + + +---------+ + + | Performing | Address | City/State/Zipcode | Phone Number | | Organization | | | | + +---------+ + + | EXTERNAL LAB | | | | + +---------+ + + POC Glucose (09/10/2014 4:14 PM PDT) + + + + + + | Component | Value | Ref Range | Performed | Pathologist | | | | | At | Signature | + + + + + + | Glucose, | 248 (H)Comment: Testing | 65 - 99 mg/dL | EXTERNAL | | | Fingerstick | performed at [facility];[address] | | LAB | | | | [address];[place] | | | | | | [address] | | | | + + + + + + + + | Specimen | + + | | + + + +---------+ + + | Performing | Address | City/State/Zipcode | Phone Number | | Organization | | | | + +---------+ + + | EXTERNAL LAB | | | | + +---------+ + + Urinalysis, Reflex Microscopic and/or Culture (09/10/2014 2:26 PM PDT) + + + + + + | Component | Value | Ref Range | Performed | Pathologist | | | | | At | Signature | + + + + + + | Color | YELLOWComment: Testing | | EXTERNAL | | | | performed at [facility], [address] | | LAB | | | | [address], | | | | | | [place] [address] | | | | + + + + + + | Clarity | CLEARComment: Testing | | EXTERNAL | | | | performed at [facility], [address] | | LAB | | | | [address], | | | | | | [place] [address] | | | | + + + + + + | Specific | 1.007Comment: Testing | 1.002 - 1.030 | EXTERNAL | | | [place] | performed at [facility], [address] | | LAB | | | | [address], | | | | | | [place] [address] | | | | + + + + + + | Leukocyte | SMALL (A)Comment: | | EXTERNAL | | | Esterase, | Testing performed at | | LAB | | | Urine | [facility], [address] | | | | | | [place] | | | | | | [address] | | | | + + + + + + | Nitrite, | NEGATIVEComment: Testing | | EXTERNAL | | | Urine | performed at [facility], [address] | | LAB | | | | [address], | | | | | | [place] [address] | | | | + + + + + + | Urobilinoge | 0.2Comment: Testing | mg/dL | EXTERNAL | | | n, Urine | performed at [facility], [address] | | LAB | | | [address], | | | | | | [place] [address] | | | | + + + + + + | Protein, | NEGATIVEComment: Testing | mg/dL | EXTERNAL | | | Urine | performed at [facility], [address] | | LAB | | | | [address], | | | | | | [place] [address] | | | | + + + + + + | pH, Urine | 7.0Comment: Testing | 5.0 - 8.0 | EXTERNAL | | | | performed at [facility], [address] | | LAB | | | | [address], | | | | | | [place] [address] | | | | + + + + + + | Blood, | MODERATE (A)Comment: | | EXTERNAL | | | Urine | Testing performed at | | LAB | | | | [facility], [address] | | | | | | [place] | | | | | | [address] | | | | + + + + + + | Ketones | NEGATIVEComment: Testing | mg/dL | EXTERNAL | | | | performed at [facility], [address] | | LAB | | | | [address], | | | | | | [place] [address] | | | | + + + + + + | Bilirubin, | NEGATIVEComment: Testing | | EXTERNAL | | | Urine | performed at [facility], [address] | | LAB | | | | [address], | | | | | | [place] [address] | | | | + + + + + + | Glucose, | NEGATIVEComment: Testing | mg/dL | EXTERNAL | | | Urine | performed at [facility], [address] | | LAB | | | | [address], | | | | | | [place] [address] | | | | + + + + + + + + | Specimen | + + | | + + + +---------+ + + | Performing | Address | City/State/Zipcode | Phone Number | | Organization | | | | + +---------+ + + | EXTERNAL LAB | | | | + +---------+ + + Urinalysis, Microscopic Only (09/10/2014 2:26 PM PDT) + + + + + + | Component | Value | Ref Range | Performed | Pathologist | | | | | At | Signature | + + + + + + | WBC, UA | 11-15Comment: Testing | 0 - 5 /hpf | EXTERNAL | | | | performed at [facility], [address] | | LAB | | | | [address], | | | | | | [place] [address] | | | | + + + + + + | RBC, UA | 1-5Comment: Testing | 0 - 5 /hpf | EXTERNAL | | | | performed at [facility], [address] | | LAB | | | | [address], | | | | | | [place] [address] | | | | + + + + + + | Epithelial | 16-25Comment: Testing | /lpf | EXTERNAL | | | Cells | performed at [facility], [address] | | LAB | | | | [address], | | | | | | [place] [address] | | | | + + + + + + | Bacteria, | 1+ (A)Comment: Testing | | EXTERNAL | | | UA | performed at [facility], [address] | | LAB | | | | [address], | | | | | | [place] [address] | | | | + + + + + + | Urinalysis | LESS THAN 10 ML | | EXTERNAL | | | Comments | SPECIMENComment: CULTURE | | LAB | | | | TO FOLLOWTesting | | | | | | performed at [facility], [address] | | | | | | [address], | | | | | | [place] [address] | | | | + + + + + + + + | Specimen | + + | | + + + +---------+ + + | Performing | Address | City/State/Zipcode | Phone Number | | Organization | | | | + +---------+ + + | EXTERNAL LAB | | | | + +---------+ + + Culture, Urine (09/10/2014 2:26 PM PDT) + + | Specimen | + + | | + + + + + | Narrative | Performed At | + + + | Specimen Description URINE, COLLECTION NOT | EXTERNAL LAB | | GIVEN SPECIAL REQUESTS UAIF REFLEX | | | CULTURE NO GROWTH | | | Testing performed at [facility], | | | [address] [place] [address] | | + + + + +---------+ + + | Performing | Address | City/State/Zipcode | Phone Number | | Organization | | | | + +---------+ + + | EXTERNAL LAB | | | | + +---------+ + + POC Glucose (09/10/2014 11:13 AM PDT) + + + + + + | Component | Value | Ref Range | Performed | Pathologist | | | | | At | Signature | + + + + + + | Glucose, | 229 (H)Comment: Testing | 65 - 99 mg/dL | EXTERNAL | | | Fingerstick | performed at [facility];[address] | | LAB | | | | [address];[place], [place] | | | | | | [address] | | | | + + + + + + + + | Specimen | + + | | + + + +---------+ + + | Performing | Address | City/State/Zipcode | Phone Number | | Organization | | | | + +---------+ + + | EXTERNAL LAB | | | | + +---------+ + + XR Chest 2 Vws (09/10/2014 10:39 AM PDT) + + | Specimen | + + | | + + + + + | Impressions | Performed At | + + + | 1. Chronic elevation of right hemidiaphragm with associated right | | | middle lobe atelectasis unchanged from the previous study. 2. A | | | left-sided central line is seen with its tip at the cavoatrial | | | junction. | | | 11:20 AM | | + + + + + + | Narrative | Performed At | + + + | KAIT ESCOBAR XR CHEST 2 VIEW FRONTAL AND LATERAL 09/10/2014 10:39 | | | AM HISTORY: 44 years. Female. Pneumonia. TECHNIQUE: 2 | | | views obtained. COMPARISON: 09/07/2014.. FINDINGS: Chronic | | | elevation right hemidiaphragm is noted with associated atelectasis in | | | the right middle lobe. A left-sided central line is seen with its | | | tip in the superior vena cava 5.6 cm below the tom at the | | | cavoatrial junction. No pleural effusion is seen. There is no | | | evidence of pneumonia or pneumothorax. The heart is normal in size. | | | The pulmonary vascular pattern is normal. No hilar adenopathy is | | | seen. The osseous structures are intact. | | + + + + + | Procedure Note | + + | Demario, Rad Conversion - 12/02/2018 4:36 AM ELIZABETH ESCOBAR CHEST 2 VIEW FRONTAL AND | | LATERAL09/10/2014 10:39 AM HISTORY:44 years. Female. Pneumonia. TECHNIQUE:2 views | | obtained. COMPARISON:09/07/2014.. FINDINGS:Chronic elevation right hemidiaphragm is noted | | with associated atelectasis in the right middle lobe. A left-sided central line is | | seen with its tip in the superior vena cava 5.6 cm below the tom at the cavoatrial | | junction. No pleural effusion is seen. There is no evidence of pneumonia or | | pneumothorax. The heart is normal in size. The pulmonary vascular pattern is normal. | | No hilar adenopathy is seen. The osseous structures are intact. IMPRESSION: 1. Chronic | | elevation of right hemidiaphragm with associated right middle lobe atelectasis | | unchanged from the previous study.2. A left-sided central line is seen with its tip at | | the cavoatrial junction. | | AM | | | |FINDINGS: | |Chronic elevation right hemidiaphragm is noted with associated atelectasis in the right mid dle lobe. A left-sided central line is seen with its tip in the superior vena cava 5.6 cm b elow the tom at the cavoatrial junction. No pleural effusion is | |seen. There is no evidence of pneumonia or pneumothorax. The heart is normal in size. Th e pulmonary vascular pattern is normal. No hilar adenopathy is seen. The osseous structure s are intact. | | | |IMPRESSION: | |1. Chronic elevation of right hemidiaphragm with associated right middle lobe atelectasis unchanged from the previous study. | |2. A left-sided central line is seen with its tip at the cavoatrial junction. | | | | | + + Culture, Blood, 2nd Specimen (09/10/2014 9:40 AM PDT) + + | Specimen | + + | Blood specimen | | (specimen) | + + + + + | Narrative | Performed At | + + + | Specimen Description BLOOD SPECIAL | EXTERNAL LAB | | REQUESTS LT AC | | | Testing performed at [facility];[address] | | [address];[place] [address] CULTURE | | | NO GROWTH | | | Testing performed at [facility], [address] [place] [address], [place], [place] | | | [address] | | + + + + +---------+ + + | Performing | Address | City/State/Zipcode | Phone Number | | Organization | | | | + +---------+ + + | EXTERNAL LAB | | | | + +---------+ + + Culture, Blood (09/10/2014 9:33 AM PDT) + + | Specimen | + + | Blood specimen | | (specimen) | + + + + + | Narrative | Performed At | + + + | Specimen Description BLOOD SPECIAL | EXTERNAL LAB | | REQUESTS RT AC | | | Testing performed at [facility];[address];[place] [address] CULTURE | | | NO GROWTH | | | Testing performed at [facility], [address] [facility], [place], [place] | | | [address] | | + + + + +---------+ + + | Performing | Address | City/State/Zipcode | Phone Number | | Organization | | | | + +---------+ + + | EXTERNAL LAB | | | | + +---------+ + + External Lab: CBC (09/10/2014 5:55 AM PDT) + + + + + + | Component | Value | Ref Range | Performed | Pathologist | | | | | At | Signature | + + + + + + | WBC | 12.44 (H)Comment: | 3.80 - 11.00 | EXTERNAL | | | | Testing performed at | K/uL | LAB | | | | [facility], [address] [facility] | | | | | | [place] | | | | | | [address] | | | | + + + + + + | RED CELL | 3.66 (L)Comment: Testing | 3.70 - 5.10 | EXTERNAL | | | COUNT | performed at [facility], [address] | M/uL | LAB | | | | [address], | | | | | | [place] [address] | | | | + + + + + + | Hgb | 11.8Comment: Testing | 11.3 - 15.5 | EXTERNAL | | | | performed at [facility], [address] | g/dL | LAB | | | [address], | | | | | | [place] [address] | | | | + + + + + + | Hematocrit, | 36.2Comment: Testing | 34.0 - 46.0 % | EXTERNAL | | | POC | performed at [facility], [address] | | LAB | | | | [address], | | | | | | [place] [address] | | | | + + + + + + | MCV | 98.8Comment: Testing | 80.0 - 100.0 fl | EXTERNAL | | | | performed at [facility], [address] | | LAB | | | | [address], | | | | | | [place] [address] | | | | + + + + + + | MCH | 32.1Comment: Testing | 27.0 - 34.0 pg | EXTERNAL | | | | performed at [facility], [address] | | LAB | | | [address], | | | | | | [place] [address] | | | | + + + + + + | MCHC | 32.5Comment: Testing | 32.0 - 35.5 | EXTERNAL | | | | performed at [facility], [address] | g/dL | LAB | | | | [address], | | | | | | [place] [address] | | | | + + + + + + | RDW-CV | 53.8 (H)Comment: Testing | 37 - 53 fl | EXTERNAL | | | | performed at [facility], [address] | | LAB | | | | [address], | | | | | | [place] [address] | | | | + + + + + + | Platelet | 267Comment: Testing | 150 - 400 K/uL | EXTERNAL | | | Count | performed at [facility], [address] | | LAB | | | Plasma | [address], | | | | | | [place] [address] | | | | + + + + + + | MPV | 8.2Comment: Testing | fl | EXTERNAL | | | | performed at [facility], [address] | | LAB | | | | [address], | | | | | | [place] [address] | | | | + + + + + + | Differentia | AUTOMATEDComment: | | EXTERNAL | | | l Type | Testing performed at | | LAB | | | | [facility], [address] | | | | | | [place] | | | | | | [address] | | | | + + + + + + | % Segmented | 69.45Comment: Testing | % | EXTERNAL | | | | performed at [facility], [address] | | LAB | | | Neutrophils | [address], | | | | | | [place] [address] | | | | + + + + + + | % | 17.19Comment: Testing | % | EXTERNAL | | | Lymphocytes | performed at [facility], [address] | | LAB | | | | [address], | | | | | | [place] [address] | | | | + + + + + + | % Monocytes | 11.54Comment: Testing | % | EXTERNAL | | | | performed at [facility], [address] | | LAB | | | | [address], | | | | | | [place] [address] | | | | + + + + + + | % | 1.49Comment: Testing | % | EXTERNAL | | | Eosinophils | performed at [facility], [address] | | LAB | | | | [address], | | | | | | [place] [address] | | | | + + + + + + | % Basophils | 0.33Comment: Testing | % | EXTERNAL | | | | performed at [facility], [address] | | LAB | | | | [address], | | | | | | [place] [address] | | | | + + + + + + | Absolute | 8.64 (H)Comment: Testing | 1.90 - 7.40 | EXTERNAL | | | Segmented | performed at [facility], [address] | [address] | LAB | | | Neutrophils | [address], | | | | | | [place] [address] | | | | + + + + + + | Absolute | 2.14Comment: Testing | 1.00 - 3.90 | EXTERNAL | | | Lymphocytes | performed at [facility], [address] | [address] | LAB | | | | [address], | | | | | | [place] [address] | | | | + + + + + + | Absolute | 1.44 (H)Comment: Testing | 0.00 - 0.80 | EXTERNAL | | | Monocytes | performed at [facility], [address] | [address] | LAB | | | | [address], | | | | | | [place] [address] | | | | + + + + + + | Absolute | 0.19Comment: Testing | 0.00 - 0.50 | EXTERNAL | | | Eosinophils | performed at [facility], [address] | [address] | LAB | | | | [address], | | | | | | [place] [address] | | | | + + + + + + | Absolute | 0.04Comment: Testing | 0.00 - 0.10 | EXTERNAL | | | Basophils | performed at [facility], [address] | [address] | LAB | | | | [address], | | | | | | [place] [address] | | | | + + + + + + + + | Specimen | + + | Blood specimen | | (specimen) | + + + +---------+ + + | Performing | Address | City/State/Zipcode | Phone Number | | Organization | | | | + +---------+ + + | EXTERNAL LAB | | | | + +---------+ + + Phosphorus (09/10/2014 5:55 AM PDT) + + + + + + | Component | Value | Ref Range | Performed | Pathologist | | | | | At | Signature | + + + + + + | PHOSPHORUS | 3.2Comment: Testing | 2.3 - 4.8 mg/dL | EXTERNAL | | | | performed at [facility], [address] | | LAB | | | | [address], | | | | | | [place] [address] | | | | + + + + + + + + | Specimen | + + | Blood specimen | | (specimen) | + + + +---------+ + + | Performing | Address | City/State/Zipcode | Phone Number | | Organization | | | | + +---------+ + + | EXTERNAL LAB | | | | + +---------+ + + Magnesium (09/10/2014 5:55 AM PDT) + + + + + + | Component | Value | Ref Range | Performed | Pathologist | | | | | At | Signature | + + + + + + | Magnesium | 1.5 (L)Comment: Testing | 1.7 - 2.4 mg/dL | EXTERNAL | | | | performed at [facility], [address] | | LAB | | | | [address], | | | | | | [place] [address] | | | | + + + + + + + + | Specimen | + + | Blood specimen | | (specimen) | + + + +---------+ + + | Performing | Address | City/State/Zipcode | Phone Number | | Organization | | | | + +---------+ + + | EXTERNAL LAB | | | | + +---------+ + + Basic Metabolic Panel (09/10/2014 5:55 AM PDT) + + + + + + | Component | Value | Ref Range | Performed | Pathologist | | | | | At | Signature | + + + + + + | Na | 132 (L)Comment: Testing | 135 - 143 | EXTERNAL | | | | performed at [facility], [address] | mmol/L | LAB | | | | [address], | | | | | | [place] [address] | | | | + + + + + + | K | 3.8Comment: Testing | 3.5 - 4.9 | EXTERNAL | | | | performed at [facility], [address] | mmol/L | LAB | | | | [address], | | | | | | [place] [address] | | | | + + + + + + | Cl | 99Comment: Testing | 99 - 109 mmol/L | EXTERNAL | | | | performed at [facility], [address] | | LAB | | | | [address], | | | | | | [place] [address] | | | | + + + + + + | CO2 | 30Comment: Testing | 23 - 32 mmol/L | EXTERNAL | | | | performed at [facility], [address] | | LAB | | | | [address], | | | | | | [place] [address] | | | | + + + + + + | Anion Gap | 7Comment: Testing | 5 - 20 mmol/L | EXTERNAL | | | | performed at [facility], [address] | | LAB | | | | [address], | | | | | | [place] [address] | | | | + + + + + + | Glucose, | 222 (H)Comment: Testing | 65 - 99 mg/dL | EXTERNAL | | | Fasting | performed at [facility], [address] | | LAB | | | | [address], | | | | | | [place] [address] | | | | + + + + + + | BUN | 12Comment: Testing | 8 - 25 mg/dL | EXTERNAL | | | | performed at [facility], [address] | | LAB | | | | [address], | | | | | | [place] [address] | | | | + + + + + + | Creatinine | 0.83Comment: Testing | 0.50 - 1.00 | EXTERNAL | | | | performed at [facility], [address] | mg/dL | LAB | | | | [address], | | | | | | [place] [address] | | | | + + + + + + | BUN/Creatin | 14Comment: Testing | | EXTERNAL | | | ine Ratio | performed at [facility], [address] | | LAB | | | | [address], | | | | | | [place] [address] | | | | + + + + + + | Calcium | 9.0Comment: Testing | 8.5 - 10.5 | EXTERNAL | | | | performed at [facility], [address] | mg/dL | LAB | | | | [address], | | | | | | [place] [address] | | | | + + + + + + | Estimated | >60Comment: GFR <60: | mL/min/1.73m2 | EXTERNAL | | | GFR | CHRONIC KIDNEY DISEASE, | | LAB | | | | IF FOUND OVER A 3 MONTH | | | | | | PERIOD.GFR <15: KIDNEY | | | | | | FAILURE.FOR | | | | | | AMERICANS, MULTIPLY THE | | | | | | CALCULATED GFR BY | | | | | | 1.210.Testing performed | | | | | | at [facility], [address] | | | | | | [address], | | | | | | [place] [address] | | | | + + + + + + + + | Specimen | + + | Blood specimen | | (specimen) | + + + +---------+ + + | Performing | Address | City/State/Zipcode | Phone Number | | Organization | | | | + +---------+ + + | EXTERNAL LAB | | | | + +---------+ + + POC Glucose (09/10/2014 5:05 AM PDT) + + + + + + | Component | Value | Ref Range | Performed | Pathologist | | | | | At | Signature | + + + + + + | Glucose, | 207 (H)Comment: Testing | 65 - 99 mg/dL | EXTERNAL | | | Fingerstick | performed at [facility];[address] | | LAB | | | | [address];[place] | | | | | | [address] | | | | + + + + + + + + | Specimen | + + | | + + + +---------+ + + | Performing | Address | City/State/Zipcode | Phone Number | | Organization | | | | + +---------+ + + | EXTERNAL LAB | | | | + +---------+ + + POC Glucose (09/09/2014 9:20 PM PDT) + + + + + + | Component | Value | Ref Range | Performed | Pathologist | | | | | At | Signature | + + + + + + | Glucose, | 225 (H)Comment: Testing | 65 - 99 mg/dL | EXTERNAL | | | Fingerstick | performed at [facility] | | LAB | | | | [address];[place] | | | | | | [address] | | | | + + + + + + + + | Specimen | + + | | + + + +---------+ + + | Performing | Address | City/State/Zipcode | Phone Number | | Organization | | | | + +---------+ + + | EXTERNAL LAB | | | | + +---------+ + + POC Glucose (09/09/2014 4:23 PM PDT) + + + + + + | Component | Value | Ref Range | Performed | Pathologist | | | | | At | Signature | + + + + + + | Glucose, | 195 (H)Comment: Testing | 65 - 99 mg/dL | EXTERNAL | | | Fingerstick | performed at [facility];[address] | | LAB | | | | [address];[place], [place] | | | | | | [address] | | | | + + + + + + + + | Specimen | + + | | + + + +---------+ + + | Performing | Address | City/State/Zipcode | Phone Number | | Organization | | | | + +---------+ + + | EXTERNAL LAB | | | | + +---------+ + + POC Glucose (09/09/2014 11:39 AM PDT) + + + + + + | Component | Value | Ref Range | Performed | Pathologist | | | | | At | Signature | + + + + + + | Glucose, | 201 (H)Comment: Testing | 65 - 99 mg/dL | EXTERNAL | | | Fingerstick | performed at [facility];[address] | | LAB | | | | [address];[place] | | | | | | [address] | | | | + + + + + + + + | Specimen | + + | | + + + +---------+ + + | Performing | Address | City/State/Zipcode | Phone Number | | Organization | | | | + +---------+ + + | EXTERNAL LAB | | | | + +---------+ + + POC Glucose (09/09/2014 5:14 AM PDT) + + + + + + | Component | Value | Ref Range | Performed | Pathologist | | | | | At | Signature | + + + + + + | Glucose, | 210 (H)Comment: Testing | 65 - 99 mg/dL | EXTERNAL | | | Fingerstick | performed at [facility];[address] | | LAB | | | | [address];[place] | | | | | | [address] | | | | + + + + + + + + | Specimen | + + | | + + + +---------+ + + | Performing | Address | City/State/Zipcode | Phone Number | | Organization | | | | + +---------+ + + | EXTERNAL LAB | | | | + +---------+ + + External Lab: CBC (09/09/2014 5:12 AM PDT) + + + + + + | Component | Value | Ref Range | Performed | Pathologist | | | | | At | Signature | + + + + + + | WBC | 9.63Comment: Testing | 3.80 - 11.00 | EXTERNAL | | | | performed at [facility], [address] | K[address] | LAB | | | | [address], | | | | | | [place] [address] | | | | + + + + + + | RED CELL | 3.65 (L)Comment: Testing | 3.70 - 5.10 | EXTERNAL | | | COUNT | performed at [facility], [address] | [address] | LAB | | | | [address], | | | | | | [place] [address] | | | | + + + + + + | Hgb | 11.8Comment: Testing | 11.3 - 15.5 | EXTERNAL | | | | performed at [facility], [address] | g/dL | LAB | | | | [address], | | | | | | [place] [address] | | | | + + + + + + | Hematocrit, | 36.1Comment: Testing | 34.0 - 46.0 % | EXTERNAL | | | POC | performed at [facility], [address] | | LAB | | | | [address], | | | | | | [place] [address] | | | | + + + + + + | MCV | 98.7Comment: Testing | 80.0 - 100.0 fl | EXTERNAL | | | | performed at [facility], [address] | | LAB | | | | [address], | | | | | | [place] [address] | | | | + + + + + + | MCH | 32.4Comment: Testing | 27.0 - 34.0 pg | EXTERNAL | | | | performed at [facility], [address] | | LAB | | | | [address], | | | | | | [place] [address] | | | | + + + + + + | MCHC | 32.8Comment: Testing | 32.0 - 35.5 | EXTERNAL | | | | performed at [facility], [address] | g/dL | LAB | | | | [address], | | | | | | [place] [address] | | | | + + + + + + | RDW-CV | 53.8 (H)Comment: Testing | 37 - 53 fl | EXTERNAL | | | | performed at [facility], [address] | | LAB | | | | [address], | | | | | | [place] [address] | | | | + + + + + + | Platelet | 280Comment: Testing | 150 - 400 K/uL | EXTERNAL | | | Count | performed at [facility], [address] | | LAB | | | Plasma | [address], | | | | | | [place] [address] | | | | + + + + + + | MPV | 7.8Comment: Testing | fl | EXTERNAL | | | | performed at [facility], [address] | | LAB | | | | [address], | | | | | | [place] [address] | | | | + + + + + + | Differentia | AUTOMATEDComment: | | EXTERNAL | | | l Type | Testing performed at | | LAB | | | | [facility], [address] | | | | | | [place] | | | | | | [address] | | | | + + + + + + | % Segmented | 62.96Comment: Testing | % | EXTERNAL | | | | performed at [facility], [address] | | LAB | | | Neutrophils | [address], | | | | | | [place] [address] | | | | + + + + + + | % | 22.27Comment: Testing | % | EXTERNAL | | | Lymphocytes | performed at [facility], [address] | | LAB | | | | [address], | | | | | | [place] [address] | | | | + + + + + + | % Monocytes | 11.29Comment: Testing | % | EXTERNAL | | | | performed at [facility], [address] | | LAB | | | | [address], | | | | | | [place] [address] | | | | + + + + + + | % | 3.04Comment: Testing | % | EXTERNAL | | | Eosinophils | performed at [facility], [address] | | LAB | | | | [address], | | | | | | [place] [address] | | | | + + + + + + | % Basophils | 0.44Comment: Testing | % | EXTERNAL | | | | performed at [facility], [address] | | LAB | | | | [address], | | | | | | [place] [address] | | | | + + + + + + | Absolute | 6.07Comment: Testing | 1.90 - 7.40 | EXTERNAL | | | Segmented | performed at [facility], [address] | K[address] | LAB | | | Neutrophils | [address], | | | | | | [place] [address] | | | | + + + + + + | Absolute | 2.15Comment: Testing | 1.00 - 3.90 | EXTERNAL | | | Lymphocytes | performed at [facility], [address] | [address] | LAB | | | | [address], | | | | | | [place] [address] | | | | + + + + + + | Absolute | 1.09 (H)Comment: Testing | 0.00 - 0.80 | EXTERNAL | | | Monocytes | performed at [facility], [address] | [address] | LAB | | | | [address], | | | | | | [place] [address] | | | | + + + + + + | Absolute | 0.29Comment: Testing | 0.00 - 0.50 | EXTERNAL | | | Eosinophils | performed at [facility], [address] | K[address] | LAB | | | | [address], | | | | | | [place] [address] | | | | + + + + + + | Absolute | 0.04Comment: Testing | 0.00 - 0.10 | EXTERNAL | | | Basophils | performed at [facility], [address] | K[address] | LAB | | | | [address], | | | | | | [place] [address] | | | | + + + + + + + + | Specimen | + + | Blood specimen | | (specimen) | + + + +---------+ + + | Performing | Address | City/State/Zipcode | Phone Number | | Organization | | | | + +---------+ + + | EXTERNAL LAB | | | | + +---------+ + + Phosphorus (09/09/2014 5:12 AM PDT) + + + + + + | Component | Value | Ref Range | Performed | Pathologist | | | | | At | Signature | + + + + + + | PHOSPHORUS | 3.0Comment: Testing | 2.3 - 4.8 mg/dL | EXTERNAL | | | | performed at [facility], [address] | | LAB | | | | [address], | | | | | | [place] [address] | | | | + + + + + + + + | Specimen | + + | Blood specimen | | (specimen) | + + + +---------+ + + | Performing | Address | City/State/Zipcode | Phone Number | | Organization | | | | + +---------+ + + | EXTERNAL LAB | | | | + +---------+ + + Magnesium (09/09/2014 5:12 AM PDT) + + + + + + | Component | Value | Ref Range | Performed | Pathologist | | | | | At | Signature | + + + + + + | Magnesium | 1.3 (L)Comment: Testing | 1.7 - 2.4 mg/dL | EXTERNAL | | | | performed at [facility], [address] | | LAB | | | | [address], | | | | | | [place] [address] | | | | + + + + + + + + | Specimen | + + | Blood specimen | | (specimen) | + + + +---------+ + + | Performing | Address | City/State/Zipcode | Phone Number | | Organization | | | | + +---------+ + + | EXTERNAL LAB | | | | + +---------+ + + Basic Metabolic Panel (09/09/2014 5:12 AM PDT) + + + + + + | Component | Value | Ref Range | Performed | Pathologist | | | | | At | Signature | + + + + + + | Na | 133 (L)Comment: Testing | 135 - 143 | EXTERNAL | | | | performed at [facility], [address] | mmol/L | LAB | | | | [address], | | | | | | [place] [address] | | | | + + + + + + | K | 4.3Comment: Testing | 3.5 - 4.9 | EXTERNAL | | | | performed at [facility], [address] | mmol/L | LAB | | | | [address], | | | | | | [place] [address] | | | | + + + + + + | Cl | 99Comment: Testing | 99 - 109 mmol/L | EXTERNAL | | | | performed at [facility], [address] | | LAB | | | | [address], | | | | | | [place] [address] | | | | + + + + + + | CO2 | 28Comment: Testing | 23 - 32 mmol/L | EXTERNAL | | | | performed at [facility], [address] | | LAB | | | | [address], | | | | | | [place] [address] | | | | + + + + + + | Anion Gap | 10Comment: Testing | 5 - 20 mmol/L | EXTERNAL | | | | performed at [facility], [address] | | LAB | | | | [address], | | | | | | [place] [address] | | | | + + + + + + | Glucose, | 174 (H)Comment: Testing | 65 - 99 mg/dL | EXTERNAL | | | Fasting | performed at [facility], [address] | | LAB | | | | [address], | | | | | | [place] [address] | | | | + + + + + + | BUN | 15Comment: Testing | 8 - 25 mg/dL | EXTERNAL | | | | performed at [facility], [address] | | LAB | | | | [address], | | | | | | [place] [address] | | | | + + + + + + | Creatinine | 0.77Comment: Testing | 0.50 - 1.00 | EXTERNAL | | | | performed at [facility], [address] | mg/dL | LAB | | | | [address], | | | | | | [place] [address] | | | | + + + + + + | BUN/Creatin | 19Comment: Testing | | EXTERNAL | | | ine Ratio | performed at [facility], [address] | | LAB | | | | [address], | | | | | | [place] [address] | | | | + + + + + + | Calcium | 8.9Comment: Testing | 8.5 - 10.5 | EXTERNAL | | | | performed at [facility], [address] | mg/dL | LAB | | | | [address], | | | | | | [place] [address] | | | | + + + + + + | Estimated | >60Comment: GFR <60: | mL/min/1.73m2 | EXTERNAL | | | GFR | CHRONIC KIDNEY DISEASE, | | LAB | | | | IF FOUND OVER A 3 MONTH | | | | | | PERIOD.GFR <15: KIDNEY | | | | | | FAILURE.FOR | | | | | | AMERICANS, MULTIPLY THE | | | | | | CALCULATED GFR BY | | | | | | 1.210.Testing performed | | | | | | at [facility], [address] | | | | | | [address], | | | | | | [place] [address] | | | | + + + + + + + + | Specimen | + + | Blood specimen | | (specimen) | + + + +---------+ + + | Performing | Address | City/State/Zipcode | Phone Number | | Organization | | | | + +---------+ + + | EXTERNAL LAB | | | | + +---------+ + + POC Glucose (09/08/2014 9:04 PM PDT) + + + + + + | Component | Value | Ref Range | Performed | Pathologist | | | | | At | Signature | + + + + + + | Glucose, | 212 (H)Comment: Testing | 65 - 99 mg/dL | EXTERNAL | | | Fingerstick | performed at [facility] | | LAB | | | | [address];[place], [place] | | | | | | [address] | | | | + + + + + + + + | Specimen | + + | | + + + +---------+ + + | Performing | Address | City/State/Zipcode | Phone Number | | Organization | | | | + +---------+ + + | EXTERNAL LAB | | | | + +---------+ + + POC Glucose (09/08/2014 4:30 PM PDT) + + + + + + | Component | Value | Ref Range | Performed | Pathologist | | | | | At | Signature | + + + + + + | Glucose, | 197 (H)Comment: Testing | 65 - 99 mg/dL | EXTERNAL | | | Fingerstick | performed at [facility];[address] | | LAB | | | | [address];[place] | | | | | | [address] | | | | + + + + + + + + | Specimen | + + | | + + + +---------+ + + | Performing | Address | City/State/Zipcode | Phone Number | | Organization | | | | + +---------+ + + | EXTERNAL LAB | | | | + +---------+ + + Magnesium (09/08/2014 12:20 PM PDT) + + + + + + | Component | Value | Ref Range | Performed | Pathologist | | | | | At | Signature | + + + + + + | Magnesium | 1.7Comment: Testing | 1.7 - 2.4 mg/dL | EXTERNAL | | | | performed at [facility];[address] | | LAB | | | | [address];[place] | | | | | | [address] | | | | + + + + + + + + | Specimen | + + | Blood specimen | | (specimen) | + + + +---------+ + + | Performing | Address | City/State/Zipcode | Phone Number | | Organization | | | | + +---------+ + + | EXTERNAL LAB | | | | + +---------+ + + POC Glucose (09/08/2014 11:08 AM PDT) + + + + + + | Component | Value | Ref Range | Performed | Pathologist | | | | | At | Signature | + + + + + + | Glucose, | 171 (H)Comment: Testing | 65 - 99 mg/dL | EXTERNAL | | | Fingerstick | performed at [facility];[address] | | LAB | | | | [address];[place], [place] | | | | | | [address] | | | | + + + + + + + + | Specimen | + + | | + + + +---------+ + + | Performing | Address | City/State/Zipcode | Phone Number | | Organization | | | | + +---------+ + + | EXTERNAL LAB | | | | + +---------+ + + POC Glucose (09/08/2014 5:14 AM PDT) + + + + + + | Component | Value | Ref Range | Performed | Pathologist | | | | | At | Signature | + + + + + + | Glucose, | 121 (H)Comment: Testing | 65 - 99 mg/dL | EXTERNAL | | | Fingerstick | performed at [facility];[address] | | LAB | | | | [address];[place] | | | | | | [address] | | | | + + + + + + + + | Specimen | + + | | + + + +---------+ + + | Performing | Address | City/State/Zipcode | Phone Number | | Organization | | | | + +---------+ + + | EXTERNAL LAB | | | | + +---------+ + + External Lab: CBC (09/08/2014 4:15 AM PDT) + + + + + + | Component | Value | Ref Range | Performed | Pathologist | | | | | At | Signature | + + + + + + | WBC | 10.01Comment: Testing | 3.80 - 11.00 | EXTERNAL | | | | performed at [facility], [address] | [address] | LAB | | | | [address], | | | | | | [place] [address] | | | | + + + + + + | RED CELL | 3.62 (L)Comment: Testing | 3.70 - 5.10 | EXTERNAL | | | COUNT | performed at [facility], [address] | [address] | LAB | | | | [address], | | | | | | [place] [address] | | | | + + + + + + | Hgb | 11.8Comment: Testing | 11.3 - 15.5 | EXTERNAL | | | | performed at [facility], [address] | g/dL | LAB | | | | [address], | | | | | | [place] [address] | | | | + + + + + + | Hematocrit, | 36.1Comment: Testing | 34.0 - 46.0 % | EXTERNAL | | | POC | performed at [facility], [address] | | LAB | | | | [address], | | | | | | [place] [address] | | | | + + + + + + | MCV | 99.7Comment: Testing | 80.0 - 100.0 fl | EXTERNAL | | | | performed at [facility], [address] | | LAB | | | | [address], | | | | | | [place] [address] | | | | + + + + + + | MCH | 32.5Comment: Testing | 27.0 - 34.0 pg | EXTERNAL | | | | performed at [facility], [address] | | LAB | | | | [address], | | | | | | [place] [address] | | | | + + + + + + | MCHC | 32.6Comment: Testing | 32.0 - 35.5 | EXTERNAL | | | | performed at [facility], [address] | g/dL | LAB | | | | [address], | | | | | | [place] [address] | | | | + + + + + + | RDW-CV | 54.7 (H)Comment: Testing | 37 - 53 fl | EXTERNAL | | | | performed at [facility], [address] | | LAB | | | | [address], | | | | | | [place] [address] | | | | + + + + + + | Platelet | 289Comment: Testing | 150 - 400 K/uL | EXTERNAL | | | Count | performed at [facility], [address] | | LAB | | | Plasma | [address], | | | | | | [place] [address] | | | | + + + + + + | MPV | 7.4Comment: Testing | fl | EXTERNAL | | | | performed at [facility], [address] | | LAB | | | | [address], | | | | | | [place] [address] | | | | + + + + + + | Differentia | AUTOMATEDComment: | | EXTERNAL | | | l Type | Testing performed at | | LAB | | | | [facility], [address] | | | | | | [place] | | | | | | [address] | | | | + + + + + + | % Segmented | 53.91Comment: Testing | % | EXTERNAL | | | | performed at [facility], [address] | | LAB | | | Neutrophils | [address], | | | | | | [place], [place] [address] | | | | + + + + + + | % | 26.30Comment: Testing | % | EXTERNAL | | | Lymphocytes | performed at [facility], [address] | | LAB | | | | [address], | | | | | | [place], [place] [address] | | | | + + + + + + | % Monocytes | 15.80Comment: Testing | % | EXTERNAL | | | | performed at [facility], [address] | | LAB | | | | [address], | | | | | | [place] [address] | | | | + + + + + + | % | 3.35Comment: Testing | % | EXTERNAL | | | Eosinophils | performed at [facility], [address] | | LAB | | | | [address], | | | | | | [place] [address] | | | | + + + + + + | % Basophils | 0.64Comment: Testing | % | EXTERNAL | | | | performed at [facility], [address] | | LAB | | | | [address], | | | | | | [place] [address] | | | | + + + + + + | Absolute | 5.40Comment: Testing | 1.90 - 7.40 | EXTERNAL | | | Segmented | performed at [facility], [address] | [address] | LAB | | | Neutrophils | [address], | | | | | | [place] [address] | | | | + + + + + + | Absolute | 2.63Comment: Testing | 1.00 - 3.90 | EXTERNAL | | | Lymphocytes | performed at [facility], [address] | [address] | LAB | | | | [address], | | | | | | [place] [address] | | | | + + + + + + | Absolute | 1.58 (H)Comment: Testing | 0.00 - 0.80 | EXTERNAL | | | Monocytes | performed at [facility], [address] | LAB | | | | [address], | | | | | | [place] [address] | | | | + + + + + + | Absolute | 0.34Comment: Testing | 0.00 - 0.50 | EXTERNAL | | | Eosinophils | performed at [facility], [address] | [address] | LAB | | | | [address], | | | | | | [place] [address] | | | | + + + + + + | Absolute | 0.06Comment: Testing | 0.00 - 0.10 | EXTERNAL | | | Basophils | performed at [facility], [address] | [address] | LAB | | | | [address], | | | | | | [place] [address] | | | | + + + + + + + + | Specimen | + + | Blood specimen | | (specimen) | + + + +---------+ + + | Performing | Address | City/State/Zipcode | Phone Number | | Organization | | | | + +---------+ + + | EXTERNAL LAB | | | | + +---------+ + + Phosphorus (09/08/2014 4:15 AM PDT) + + + + + + | Component | Value | Ref Range | Performed | Pathologist | | | | | At | Signature | + + + + + + | PHOSPHORUS | 4.8Comment: Testing | 2.3 - 4.8 mg/dL | EXTERNAL | | | | performed at [facility], [address] | | LAB | | | | [address], | | | | | | [place] [address] | | | | + + + + + + + + | Specimen | + + | Blood specimen | | (specimen) | + + + +---------+ + + | Performing | Address | City/State/Zipcode | Phone Number | | Organization | | | | + +---------+ + + | EXTERNAL LAB | | | | + +---------+ + + Magnesium (09/08/2014 4:15 AM PDT) + + + + + + | Component | Value | Ref Range | Performed | Pathologist | | | | | At | Signature | + + + + + + | Magnesium | 1.3 (L)Comment: Testing | 1.7 - 2.4 mg/dL | EXTERNAL | | | | performed at [facility], [address] | | LAB | | | | [address], | | | | | | [place] [address] | | | | + + + + + + + + | Specimen | + + | Blood specimen | | (specimen) | + + + +---------+ + + | Performing | Address | City/State/Zipcode | Phone Number | | Organization | | | | + +---------+ + + | EXTERNAL LAB | | | | + +---------+ + + Basic Metabolic Panel (09/08/2014 4:15 AM PDT) + + + + + + | Component | Value | Ref Range | Performed | Pathologist | | | | | At | Signature | + + + + + + | Na | 139Comment: Testing | 135 - 143 | EXTERNAL | | | | performed at [facility], [address] | mmol/L | LAB | | | | [address], | | | | | | [place] [address] | | | | + + + + + + | K | 4.4Comment: Testing | 3.5 - 4.9 | EXTERNAL | | | | performed at [facility], [address] | mmol/L | LAB | | | | [address], | | | | | | [place] [address] | | | | + + + + + + | Cl | 106Comment: Testing | 99 - 109 mmol/L | EXTERNAL | | | | performed at [facility], [address] | | LAB | | | | [address], | | | | | | [place] [address] | | | | + + + + + + | CO2 | 27Comment: Testing | 23 - 32 mmol/L | EXTERNAL | | | | performed at [facility], [address] | | LAB | | | | [address], | | | | | | [place] [address] | | | | + + + + + + | Anion Gap | 10Comment: Testing | 5 - 20 mmol/L | EXTERNAL | | | | performed at [facility], [address] | | LAB | | | | [address], | | | | | | [place] [address] | | | | + + + + + + | Glucose, | 129 (H)Comment: Testing | 65 - 99 mg/dL | EXTERNAL | | | Fasting | performed at [facility], [address] | | LAB | | | | [address], | | | | | | [place] [address] | | | | + + + + + + | BUN | 16Comment: Testing | 8 - 25 mg/dL | EXTERNAL | | | | performed at [facility], [address] | | LAB | | | | [address], | | | | | | [place] [address] | | | | + + + + + + | Creatinine | 0.82Comment: Testing | 0.50 - 1.00 | EXTERNAL | | | | performed at [facility], [address] | mg/dL | LAB | | | | [address], | | | | | | [place] [address] | | | | + + + + + + | BUN/Creatin | 20Comment: Testing | | EXTERNAL | | | ine Ratio | performed at [facility], [address] | | LAB | | | | [address], | | | | | | [place] [address] | | | | + + + + + + | Calcium | 8.9Comment: Testing | 8.5 - 10.5 | EXTERNAL | | | | performed at [facility], [address] | mg/dL | LAB | | | | [address], | | | | | | [place] [address] | | | | + + + + + + | Estimated | >60Comment: GFR <60: | mL/min/1.73m2 | EXTERNAL | | | GFR | CHRONIC KIDNEY DISEASE, | | LAB | | | | IF FOUND OVER A 3 MONTH | | | | | | PERIOD.GFR <15: KIDNEY | | | | | | FAILURE.FOR | | | | | | AMERICANS, MULTIPLY THE | | | | | | CALCULATED GFR BY | | | | | | 1.210.Testing performed | | | | | | at [facility], [address] | | | | | | [address], | | | | | | [place] [address] | | | | + + + + + + + + | Specimen | + + | Blood specimen | | (specimen) | + + + +---------+ + + | Performing | Address | City/State/Zipcode | Phone Number | | Organization | | | | + +---------+ + + | EXTERNAL LAB | | | | + +---------+ + + POC Glucose (09/07/2014 9:49 PM PDT) + + + + + + | Component | Value | Ref Range | Performed | Pathologist | | | | | At | Signature | + + + + + + | Glucose, | 135 (H)Comment: Testing | 65 - 99 mg/dL | EXTERNAL | | | Fingerstick | performed at [facility];[address] | | LAB | | | | [address];[place], [place] | | | | | | [address] | | | | + + + + + + + + | Specimen | + + | | + + + +---------+ + + | Performing | Address | City/State/Zipcode | Phone Number | | Organization | | | | + +---------+ + + | EXTERNAL LAB | | | | + +---------+ + + POC Glucose (09/07/2014 5:44 PM PDT) + + + + + + | Component | Value | Ref Range | Performed | Pathologist | | | | | At | Signature | + + + + + + | Glucose, | 123 (H)Comment: Testing | 65 - 99 mg/dL | EXTERNAL | | | Fingerstick | performed at [facility];[address] | | LAB | | | | [address];[place] | | | | | | [address] | | | | + + + + + + + + | Specimen | + + | | + + + +---------+ + + | Performing | Address | City/State/Zipcode | Phone Number | | Organization | | | | + +---------+ + + | EXTERNAL LAB | | | | + +---------+ + + POC Glucose (09/07/2014 2:06 PM PDT) + + + + + + | Component | Value | Ref Range | Performed | Pathologist | | | | | At | Signature | + + + + + + | Glucose, | 125 (H)Comment: Testing | 65 - 99 mg/dL | EXTERNAL | | | Fingerstick | performed at [facility];[address] | | LAB | | | | [address];[place], [place] | | | | | | [address] | | | | + + + + + + + + | Specimen | + + | | + + + +---------+ + + | Performing | Address | City/State/Zipcode | Phone Number | | Organization | | | | + +---------+ + + | EXTERNAL LAB | | | | + +---------+ + + POC Glucose (09/07/2014 12:02 PM PDT) + + + + + + | Component | Value | Ref Range | Performed | Pathologist | | | | | At | Signature | + + + + + + | Glucose, | 117 (H)Comment: Testing | 65 - 99 mg/dL | EXTERNAL | | | Fingerstick | performed at [facility] | | LAB | | | | [address];[place] | | | | | | [address] | | | | + + + + + + + + | Specimen | + + | | + + + +---------+ + + | Performing | Address | City/State/Zipcode | Phone Number | | Organization | | | | + +---------+ + + | EXTERNAL LAB | | | | + +---------+ + + Potassium (09/07/2014 11:54 AM PDT) + + + + + + | Component | Value | Ref Range | Performed | Pathologist | | | | | At | Signature | + + + + + + | K | 4.4Comment: Testing | 3.5 - 4.9 | EXTERNAL | | | | performed at [facility];[address] | mmol/L | LAB | | | | [address];[place], [place] | | | | | | [address] | | | | + + + + + + + + | Specimen | + + | Blood specimen | | (specimen) | + + + +---------+ + + | Performing | Address | City/State/Zipcode | Phone Number | | Organization | | | | + +---------+ + + | EXTERNAL LAB | | | | + +---------+ + + Magnesium (09/07/2014 11:54 AM PDT) + + + + + + | Component | Value | Ref Range | Performed | Pathologist | | | | | At | Signature | + + + + + + | Magnesium | 2.1Comment: Testing | 1.7 - 2.4 mg/dL | EXTERNAL | | | | performed at [facility] | | LAB | | | | [address];[place], [place] | | | | | | [address] | | | | + + + + + + + + | Specimen | + + | Blood specimen | | (specimen) | + + + +---------+ + + | Performing | Address | City/State/Zipcode | Phone Number | | Organization | | | | + +---------+ + + | EXTERNAL LAB | | | | + +---------+ + + POC Glucose (09/07/2014 10:04 AM PDT) + + + + + + | Component | Value | Ref Range | Performed | Pathologist | | | | | At | Signature | + + + + + + | Glucose, | 136 (H)Comment: Testing | 65 - 99 mg/dL | EXTERNAL | | | Fingerstick | performed at [facility];[address] | | LAB | | | | [address];[place], [place] | | | | | | [address] | | | | + + + + + + + + | Specimen | + + | | + + + +---------+ + + | Performing | Address | City/State/Zipcode | Phone Number | | Organization | | | | + +---------+ + + | EXTERNAL LAB | | | | + +---------+ + + POC Glucose (09/07/2014 7:57 AM PDT) + + + + + + | Component | Value | Ref Range | Performed | Pathologist | | | | | At | Signature | + + + + + + | Glucose, | 131 (H)Comment: Testing | 65 - 99 mg/dL | EXTERNAL | | | Fingerstick | performed at [facility];[address] | | LAB | | | | [address];[place] | | | | | | [address] | | | | + + + + + + + + | Specimen | + + | | + + + +---------+ + + | Performing | Address | City/State/Zipcode | Phone Number | | Organization | | | | + +---------+ + + | EXTERNAL LAB | | | | + +---------+ + + XR Chest 1 Vw (09/07/2014 6:17 AM PDT) + + | Specimen | + + | | + + + + + | Impressions | Performed At | + + + | 1. Unchanged tubes and lines without evidence of pneumothorax. 2. | | | Developing mild perihilar interstitial edema and atelectasis. | | | | | + + + + + + | Narrative | Performed At | + + + | [facility] XR CHEST 1 VIEW 09/07/2014 6:17 AM HISTORY: Line | | | placement. TECHNIQUE: One view of the chest. FINDINGS: | | | Compared with 09/06/14. Tubes and lines appear unchanged in positions. | | | A skin fold projects over the right upper chest. No definite | | | pneumothorax. There is unchanged blunting of the right costophrenic | | | sulcus, suggesting a minimal pleural effusion or pleural thickening. | | | There is mild bilateral perihilar interstitial prominence, probably a | | | combination of minimal edema and atelectasis. | | + + + + + | Procedure Note | + + | Demario, Rad Conversion - 12/02/2018 4:36 AM PDT [facility] CHEST 1 VIEW09/07/2014 | | 6:17 AM HISTORY:Line placement. TECHNIQUE:One view of the chest. FINDINGS:Compared with | | 09/06/14. Tubes and lines appear unchanged in positions. A skin fold projects over the | | right upper chest. No definite pneumothorax. There is unchanged blunting of the right | | costophrenic sulcus, suggesting a minimal pleural effusion or pleural thickening. There | | is mild bilateral perihilar interstitial prominence, probably a combination of minimal | | edema and atelectasis. IMPRESSION: 1. Unchanged tubes and lines without evidence of | | pneumothorax.2. Developing mild perihilar interstitial edema and atelectasis. | | | | | |FINDINGS: | |Compared with 09/06/14. Tubes and lines appear unchanged in positions. A skin fold projects over the right upper chest. No definite pneumothorax. There is unchanged blunting of the rig ht costophrenic sulcus, suggesting a minimal pleural effusion or | |pleural thickening. There is mild bilateral perihilar interstitial prominence, probably a c ombination of minimal edema and atelectasis. | | | |IMPRESSION: | |1. Unchanged tubes and lines without evidence of pneumothorax. | |2. Developing mild perihilar interstitial edema and atelectasis. | | | | | + + POC Glucose (09/07/2014 5:52 AM PDT) + + + + + + | Component | Value | Ref Range | Performed | Pathologist | | | | | At | Signature | + + + + + + | Glucose, | 130 (H)Comment: Testing | 65 - 99 mg/dL | EXTERNAL | | | Fingerstick | performed at [facility];[address] | | LAB | | | | [address];[place] | | | | | | [address] | | | | + + + + + + + + | Specimen | + + | | + + + +---------+ + + | Performing | Address | City/State/Zipcode | Phone Number | | Organization | | | | + +---------+ + + | EXTERNAL LAB | | | | + +---------+ + + POC Glucose (09/07/2014 3:44 AM PDT) + + + + + + | Component | Value | Ref Range | Performed | Pathologist | | | | | At | Signature | + + + + + + | Glucose, | 115 (H)Comment: Testing | 65 - 99 mg/dL | EXTERNAL | | | Fingerstick | performed at [facility];[address] | | LAB | | | | [address];[place], [place] | | | | | | [address] | | | | + + + + + + + + | Specimen | + + | | + + + +---------+ + + | Performing | Address | City/State/Zipcode | Phone Number | | Organization | | | | + +---------+ + + | EXTERNAL LAB | | | | + +---------+ + + External Lab: ANTWON (09/07/2014 3:22 AM PDT) + + + + + + | Component | Value | Ref Range | Performed | Pathologist | | | | | At | Signature | + + + + + + | WBC | 9.18Comment: Testing | 3.80 - 11.00 | EXTERNAL | | | | performed at [facility], [address] | K/uL | LAB | | | | [address], | | | | | | [place] [address] | | | | + + + + + + | RED CELL | 3.42 (L)Comment: Testing | 3.70 - 5.10 | EXTERNAL | | | COUNT | performed at [facility], [address] | M/uL | LAB | | | | [address], | | | | | | [place] [address] | | | | + + + + + + | Hgb | 11.1 (L)Comment: Testing | 11.3 - 15.5 | EXTERNAL | | | | performed at [facility], [address] | g/dL | LAB | | | | [address], | | | | | | [place] [address] | | | | + + + + + + | Hematocrit, | 33.5 (L)Comment: Testing | 34.0 - 46.0 % | EXTERNAL | | | POC | performed at [facility], [address] | | LAB | | | | [address], | | | | | | [place] [address] | | | | + + + + + + | MCV | 97.9Comment: Testing | 80.0 - 100.0 fl | EXTERNAL | | | | performed at [facility], [address] | | LAB | | | | [address], | | | | | | [place] [address] | | | | + + + + + + | MCH | 32.3Comment: Testing | 27.0 - 34.0 pg | EXTERNAL | | | | performed at [facility], [address] | | LAB | | | | [address], | | | | | | [place] [address] | | | | + + + + + + | MCHC | 33.0Comment: Testing | 32.0 - 35.5 | EXTERNAL | | | | performed at [facility], [address] | g/dL | LAB | | | | [address], | | | | | | [place] [address] | | | | + + + + + + | RDW-CV | 55.6 (H)Comment: Testing | 37 - 53 fl | EXTERNAL | | | | performed at [facility], [address] | | LAB | | | | [address], | | | | | | [place] [address] | | | | + + + + + + | Platelet | 321Comment: Testing | 150 - 400 K/uL | EXTERNAL | | | Count | performed at [facility], [address] | | LAB | | | Plasma | [address], | | | | | | [place] [address] | | | | + + + + + + | MPV | 7.4Comment: Testing | fl | EXTERNAL | | | | performed at [facility], [address] | | LAB | | | | [address], | | | | | | [place] [address] | | | | + + + + + + | Differentia | AUTOMATEDComment: | | EXTERNAL | | | l Type | Testing performed at | | LAB | | | | [facility], [address] | | | | | | [place] | | | | | | [address] | | | | + + + + + + | % Segmented | 51.00Comment: Testing | % | EXTERNAL | | | | performed at [facility], [address] | | LAB | | | Neutrophils | [address], | | | | | | [place] [address] | | | | + + + + + + | % | 30.62Comment: Testing | % | EXTERNAL | | | Lymphocytes | performed at [facility], [address] | | LAB | | | | [address], | | | | | | [place] [address] | | | | + + + + + + | % Monocytes | 16.25Comment: Testing | % | EXTERNAL | | | | performed at [facility], [address] | | LAB | | | | [address], | | | | | | [place] [address] | | | | + + + + + + | % | 1.79Comment: Testing | % | EXTERNAL | | | Eosinophils | performed at [facility], [address] | | LAB | | | | [address], | | | | | | [place] [address] | | | | + + + + + + | % Basophils | 0.34Comment: Testing | % | EXTERNAL | | | | performed at [facility], [address] | | LAB | | | | [address], | | | | | | [place] [address] | | | | + + + + + + | Absolute | 4.68Comment: Testing | 1.90 - 7.40 | EXTERNAL | | | Segmented | performed at [facility], [address] | K/uL | LAB | | | Neutrophils | [address], | | | | | | [place] [address] | | | | + + + + + + | Absolute | 2.81Comment: Testing | 1.00 - 3.90 | EXTERNAL | | | Lymphocytes | performed at [facility], [address] | K/uL | LAB | | | | [address], | | | | | | [place], [place] [address] | | | | + + + + + + | Absolute | 1.49 (H)Comment: Testing | 0.00 - 0.80 | EXTERNAL | | | Monocytes | performed at [facility], [address] | K/uL | LAB | | | | [address], | | | | | | [place] [address] | | | | + + + + + + | Absolute | 0.16Comment: Testing | 0.00 - 0.50 | EXTERNAL | | | Eosinophils | performed at [facility], [address] | K/uL | LAB | | | | [address], | | | | | | [place] [address] | | | | + + + + + + | Absolute | 0.03Comment: Testing | 0.00 - 0.10 | EXTERNAL | | | Basophils | performed at [facility], [address] | K/uL | LAB | | | | [address], | | | | | | [place] [address] | | | | + + + + + + + + | Specimen | + + | Blood specimen | | (specimen) | + + + +---------+ + + | Performing | Address | City/State/Zipcode | Phone Number | | Organization | | | | + +---------+ + + | EXTERNAL LAB | | | | + +---------+ + + Phosphorus (09/07/2014 3:22 AM PDT) + + + + + + | Component | Value | Ref Range | Performed | Pathologist | | | | | At | Signature | + + + + + + | PHOSPHORUS | 2.5Comment: Testing | 2.3 - 4.8 mg/dL | EXTERNAL | | | | performed at [facility], [address] | | LAB | | | | [address], | | | | | | [place] [address] | | | | + + + + + + + + | Specimen | + + | Blood specimen | | (specimen) | + + + +---------+ + + | Performing | Address | City/State/Zipcode | Phone Number | | Organization | | | | + +---------+ + + | EXTERNAL LAB | | | | + +---------+ + + Magnesium (09/07/2014 3:22 AM PDT) + + + + + + | Component | Value | Ref Range | Performed | Pathologist | | | | | At | Signature | + + + + + + | Magnesium | 1.7Comment: Testing | 1.7 - 2.4 mg/dL | EXTERNAL | | | | performed at [facility], [address] | | LAB | | | | [address], | | | | | | [place] [address] | | | | + + + + + + + + | Specimen | + + | Blood specimen | | (specimen) | + + + +---------+ + + | Performing | Address | City/State/Zipcode | Phone Number | | Organization | | | | + +---------+ + + | EXTERNAL LAB | | | | + +---------+ + + Basic Metabolic Panel (09/07/2014 3:22 AM PDT) + + + + + + | Component | Value | Ref Range | Performed | Pathologist | | | | | At | Signature | + + + + + + | Na | 142Comment: Testing | 135 - 143 | EXTERNAL | | | | performed at [facility], [address] | mmol/L | LAB | | | | [address], | | | | | | [place] [address] | | | | + + + + + + | K | 3.9Comment: Testing | 3.5 - 4.9 | EXTERNAL | | | | performed at [facility], [address] | mmol/L | LAB | | | | [address], | | | | | | [place] [address] | | | | + + + + + + | Cl | 114 (H)Comment: Testing | 99 - 109 mmol/L | EXTERNAL | | | | performed at [facility], [address] | | LAB | | | | [address], | | | | | | [place] [address] | | | | + + + + + + | CO2 | 22 (L)Comment: Testing | 23 - 32 mmol/L | EXTERNAL | | | | performed at [facility], [address] | | LAB | | | | [address], | | | | | | [place] [address] | | | | + + + + + + | Anion Gap | 10Comment: Testing | 5 - 20 mmol/L | EXTERNAL | | | | performed at [facility], [address] | | LAB | | | | [address], | | | | | | [place] [address] | | | | + + + + + + | Glucose, | 122 (H)Comment: Testing | 65 - 99 mg/dL | EXTERNAL | | | Fasting | performed at [facility], [address] | | LAB | | | | [address], | | | | | | [place] [address] | | | | + + + + + + | BUN | 16Comment: Testing | 8 - 25 mg/dL | EXTERNAL | | | | performed at [facility], [address] | | LAB | | | | [address], | | | | | | [place] [address] | | | | + + + + + + | Creatinine | 0.89Comment: Testing | 0.50 - 1.00 | EXTERNAL | | | | performed at [facility], [address] | mg/dL | LAB | | | [address], | | | | | | [place] [address] | | | | + + + + + + | BUN/Creatin | 18Comment: Testing | | EXTERNAL | | | ine Ratio | performed at [facility], [address] | | LAB | | | | [address], | | | | | | [place] [address] | | | | + + + + + + | Calcium | 8.7Comment: Testing | 8.5 - 10.5 | EXTERNAL | | | | performed at [facility], [address] | mg/dL | LAB | | | | [facility], | | | | | | [place] [address] | | | | + + + + + + | Estimated | >60Comment: GFR <60: | mL/min/1.73m2 | EXTERNAL | | | GFR | CHRONIC KIDNEY DISEASE, | | LAB | | | | IF FOUND OVER A 3 MONTH | | | | | | PERIOD.GFR <15: KIDNEY | | | | | | FAILURE.FOR | | | | | | AMERICANS, MULTIPLY THE | | | | | | CALCULATED GFR BY | | | | | | 1.210.Testing performed | | | | | | at [facility], [address] | | | | | | [facility], | | | | | | [place] [address] | | | | + + + + + + + + | Specimen | + + | Blood specimen | | (specimen) | + + + +---------+ + + | Performing | Address | City/State/Zipcode | Phone Number | | Organization | | | | + +---------+ + + | EXTERNAL LAB | | | | + +---------+ + + POC Glucose (09/07/2014 2:39 AM PDT) + + + + + + | Component | Value | Ref Range | Performed | Pathologist | | | | | At | Signature | + + + + + + | Glucose, | 113 (H)Comment: Testing | 65 - 99 mg/dL | EXTERNAL | | | Fingerstick | performed at [facility];[address] | | LAB | | | | [address];[place] | | | | | | [address] | | | | + + + + + + + + | Specimen | + + | | + + + +---------+ + + | Performing | Address | City/State/Zipcode | Phone Number | | Organization | | | | + +---------+ + + | EXTERNAL LAB | | | | + +---------+ + + POC Glucose (09/07/2014 1:35 AM PDT) + + + + + + | Component | Value | Ref Range | Performed | Pathologist | | | | | At | Signature | + + + + + + | Glucose, | 109 (H)Comment: Testing | 65 - 99 mg/dL | EXTERNAL | | | Fingerstick | performed at [facility];[address] | | LAB | | | | [address];[place], [place] | | | | | | [address] | | | | + + + + + + + + | Specimen | + + | | + + + +---------+ + + | Performing | Address | City/State/Zipcode | Phone Number | | Organization | | | | + +---------+ + + | EXTERNAL LAB | | | | + +---------+ + + Potassium (09/07/2014 1:05 AM PDT) + + + + + + | Component | Value | Ref Range | Performed | Pathologist | | | | | At | Signature | + + + + + + | K | 4.1Comment: Testing | 3.5 - 4.9 | EXTERNAL | | | | performed at [facility];[address] | mmol/L | LAB | | | | [address];[place] | | | | | | [address] | | | | + + + + + + + + | Specimen | + + | Blood specimen | | (specimen) | + + + +---------+ + + | Performing | Address | City/State/Zipcode | Phone Number | | Organization | | | | + +---------+ + + | EXTERNAL LAB | | | | + +---------+ + + POC Glucose (09/07/2014 12:29 AM PDT) + + + + + + | Component | Value | Ref Range | Performed | Pathologist | | | | | At | Signature | + + + + + + | Glucose, | 82Comment: Testing | 65 - 99 mg/dL | EXTERNAL | | | Fingerstick | performed at [facility];[address] | | LAB | | | | [address];[place], [place] | | | | | | [address] | | | | + + + + + + + + | Specimen | + + | | + + + +---------+ + + | Performing | Address | City/State/Zipcode | Phone Number | | Organization | | | | + +---------+ + + | EXTERNAL LAB | | | | + +---------+ + + POC Glucose (09/06/2014 11:26 PM PDT) + + + + + + | Component | Value | Ref Range | Performed | Pathologist | | | | | At | Signature | + + + + + + | Glucose, | 102 (H)Comment: Testing | 65 - 99 mg/dL | EXTERNAL | | | Fingerstick | performed at [facility];[address] | | LAB | | | | [address];[place] | | | | | | [address] | | | | + + + + + + + + | Specimen | + + | | + + + +---------+ + + | Performing | Address | City/State/Zipcode | Phone Number | | Organization | | | | + +---------+ + + | EXTERNAL LAB | | | | + +---------+ + + POC Glucose (09/06/2014 10:22 PM PDT) + + + + + + | Component | Value | Ref Range | Performed | Pathologist | | | | | At | Signature | + + + + + + | Glucose, | 159 (H)Comment: Testing | 65 - 99 mg/dL | EXTERNAL | | | Fingerstick | performed at [facility];[address] | | LAB | | | | [address];[place], [place] | | | | | | [address] | | | | + + + + + + + + | Specimen | + + | | + + + +---------+ + + | Performing | Address | City/State/Zipcode | Phone Number | | Organization | | | | + +---------+ + + | EXTERNAL LAB | | | | + +---------+ + + Potassium (09/06/2014 8:18 PM PDT) + + + + + + | Component | Value | Ref Range | Performed | Pathologist | | | | | At | Signature | + + + + + + | K | 3.9Comment: Testing | 3.5 - 4.9 | EXTERNAL | | | | performed at [facility];[address] | mmol/L | LAB | | | | [address];[place], [place] | | | | | | [address] | | | | + + + + + + + + | Specimen | + + | Blood specimen | | (specimen) | + + + +---------+ + + | Performing | Address | City/State/Zipcode | Phone Number | | Organization | | | | + +---------+ + + | EXTERNAL LAB | | | | + +---------+ + + POC Glucose (09/06/2014 8:16 PM PDT) + + + + + + | Component | Value | Ref Range | Performed | Pathologist | | | | | At | Signature | + + + + + + | Glucose, | 104 (H)Comment: Testing | 65 - 99 mg/dL | EXTERNAL | | | Fingerstick | performed at [facility];[address] | | LAB | | | | [address];[place] | | | | | | [address] | | | | + + + + + + + + | Specimen | + + | | + + + +---------+ + + | Performing | Address | City/State/Zipcode | Phone Number | | Organization | | | | + +---------+ + + | EXTERNAL LAB | | | | + +---------+ + + POC Glucose (09/06/2014 6:27 PM PDT) + + + + + + | Component | Value | Ref Range | Performed | Pathologist | | | | | At | Signature | + + + + + + | Glucose, | 119 (H)Comment: Testing | 65 - 99 mg/dL | EXTERNAL | | | Fingerstick | performed at [facility];[address] | | LAB | | | | [address];[place] | | | | | | [address] | | | | + + + + + + + + | Specimen | + + | | + + + +---------+ + + | Performing | Address | City/State/Zipcode | Phone Number | | Organization | | | | + +---------+ + + | EXTERNAL LAB | | | | + +---------+ + + Potassium (09/06/2014 4:28 PM PDT) + + + + + + | Component | Value | Ref Range | Performed | Pathologist | | | | | At | Signature | + + + + + + | K | 3.8Comment: Testing | 3.5 - 4.9 | EXTERNAL | | | | performed at [facility];[address] | mmol/L | LAB | | | | [address];[place] | | | | | | [address] | | | | + + + + + + + + | Specimen | + + | Blood specimen | | (specimen) | + + + +---------+ + + | Performing | Address | City/State/Zipcode | Phone Number | | Organization | | | | + +---------+ + + | EXTERNAL LAB | | | | + +---------+ + + POC Glucose (09/06/2014 4:22 PM PDT) + + + + + + | Component | Value | Ref Range | Performed | Pathologist | | | | | At | Signature | + + + + + + | Glucose, | 111 (H)Comment: Testing | 65 - 99 mg/dL | EXTERNAL | | | Fingerstick | performed at [facility];[address] | | LAB | | | | [address];[place] | | | | | | [address] | | | | + + + + + + + + | Specimen | + + | | + + + +---------+ + + | Performing | Address | City/State/Zipcode | Phone Number | | Organization | | | | + +---------+ + + | EXTERNAL LAB | | | | + +---------+ + + POC Glucose (09/06/2014 2:12 PM PDT) + + + + + + | Component | Value | Ref Range | Performed | Pathologist | | | | | At | Signature | + + + + + + | Glucose, | 139 (H)Comment: Testing | 65 - 99 mg/dL | EXTERNAL | | | Fingerstick | performed at [facility];[address] | | LAB | | | | [address];[place], [place] | | | | | | [address] | | | | + + + + + + + + | Specimen | + + | | + + + +---------+ + + | Performing | Address | City/State/Zipcode | Phone Number | | Organization | | | | + +---------+ + + | EXTERNAL LAB | | | | + +---------+ + + Urinalysis with Microscopic with Culture if Indicated (09/06/2014 1:36 PM PDT) + + + + + + | Component | Value | Ref Range | Performed | Pathologist | | | | | At | Signature | + + + + + + | Color | DK YELLOWComment: | | EXTERNAL | | | | Testing performed at | | LAB | | | | [facility], [address] | | | | | | [place] | | | | | | [address] | | | | + + + + + + | Clarity | TURBIDComment: Testing | | EXTERNAL | | | | performed at [facility], [address] | | LAB | | | | [address], | | | | | | [place] [address] | | | | + + + + + + | Specific | 1.026Comment: Testing | 1.002 - 1.030 | EXTERNAL | | | [place] | performed at [facility], [address] | | LAB | | | | [address], | | | | | | [place], [place] [address] | | | | + + + + + + | Leukocyte | NEGATIVEComment: Testing | | EXTERNAL | | | Esterase, | performed at [facility], [address] | | LAB | | | [address] | [address], | | | | | | [place] [address] | | | | + + + + + + | Nitrite, | NEGATIVEComment: Testing | | EXTERNAL | | | Urine | performed at [facility], [address] | | LAB | | | | [address], | | | | | | [place] [address] | | | | + + + + + + | Urobilinoge | 0.2Comment: Testing | mg/dL | EXTERNAL | | | n, Urine | performed at [facility], [address] | | LAB | | | | [address], | | | | | | [place] [address] | | | | + + + + + + | Protein, | 100 (A)Comment: Testing | mg/dL | EXTERNAL | | | Urine | performed at [facility], [address] | | LAB | | | | [address], | | | | | | [place] [address] | | | | + + + + + + | pH, Urine | 5.5Comment: Testing | 5.0 - 8.0 | EXTERNAL | | | | performed at [facility], [address] | | LAB | | | | [address], | | | | | | [place] [address] | | | | + + + + + + | Blood, | NEGATIVEComment: Testing | | EXTERNAL | | | Urine | performed at [facility], [address] | | LAB | | | | [address], | | | | | | [place] [address] | | | | + + + + + + | Ketones | TRACE (A)Comment: | mg/dL | EXTERNAL | | | | Testing performed at | | LAB | | | | [facility], [address] | | | | | | [place] | | | | | | [address] | | | | + + + + + + | Bilirubin, | LARGE (A)Comment: | | EXTERNAL | | | Urine | Testing performed at | | LAB | | | | [facility], [address] | | | | | | [place] | | | | | | [address] | | | | + + + + + + | Glucose, | NEGATIVEComment: Testing | mg/dL | EXTERNAL | | | Urine | performed at [facility], [address] | | LAB | | | | [address], | | | | | | [place] [address] | | | | + + + + + + | WBC, UA | 0-2Comment: Testing | 0 - 5 /hpf | EXTERNAL | | | | performed at [facility], [address] | | LAB | | | | [address], | | | | | | [place] [address] | | | | + + + + + + | RBC, UA | 1-5Comment: Testing | 0 - 5 /hpf | EXTERNAL | | | | performed at [facility], [address] | | LAB | | | | [address], | | | | | | [place] [address] | | | | + + + + + + | Epithelial | 0-2Comment: Testing | /lpf | EXTERNAL | | | Cells | performed at [facility], [address] | | LAB | | | | [address], | | | | | | [place] [address] | | | | + + + + + + | Bacteria, | 4+ (A)Comment: Testing | | EXTERNAL | | | UA | performed at [facility], [address] | | LAB | | | | [address], | | | | | | [place] [address] | | | | + + + + + + | Urinalysis | MICRO DONE ON UNSPUN | | EXTERNAL | | | Comments | URINE...< 2.0 ML | | LAB | | | | RECEIVEDComment: Testing | | | | | | performed at [facility], [address] | | | | | | [address], | | | | | | [place] [address] | | | | + + + + + + + + | Specimen | + + | | + + + +---------+ + + | Performing | Address | City/State/Zipcode | Phone Number | | Organization | | | | + +---------+ + + | EXTERNAL LAB | | | | + +---------+ + + Protein/Creatinine Ratio, Urine (09/06/2014 1:36 PM PDT) + + + + + + | Component | Value | Ref Range | Performed | Pathologist | | | | | At | Signature | + + + + + + | Protein/Cre | 0.756Comment: Testing | | EXTERNAL | | | at Ratio | performed at [facility], [address] | | LAB | | | | [address], | | | | | | [place] [address] | | | | + + + + + + + + | Specimen | + + | Urine specimen | | (specimen) | + + + +---------+ + + | Performing | Address | City/State/Zipcode | Phone Number | | Organization | | | | + +---------+ + + | EXTERNAL LAB | | | | + +---------+ + + Sodium, Urine, Random (09/06/2014 1:36 PM PDT) + + + + + + | Component | Value | Ref Range | Performed | Pathologist | | | | | At | Signature | + + + + + + | Sodium, | 28 (L)Comment: Testing | 90 - 104 mmol/L | EXTERNAL | | | Urine | performed at [facility], [address] | | LAB | | | Random | [address], | | | | | | [place] [address] | | | | + + + + + + + + | Specimen | + + | Urine specimen | | (specimen) | + + + +---------+ + + | Performing | Address | City/State/Zipcode | Phone Number | | Organization | | | | + +---------+ + + | EXTERNAL LAB | | | | + +---------+ + + Protein, Urine, Random (09/06/2014 1:36 PM PDT) + + + + + + | Component | Value | Ref Range | Performed | Pathologist | | | | | At | Signature | + + + + + + | Protein, | 130Comment: Testing | mg/dL | EXTERNAL | | | Urine | performed at [facility], [address] | | LAB | | | | [address], | | | | | | [place] [address] | | | | + + + + + + + + | Specimen | + + | | + + + +---------+ + + | Performing | Address | City/State/Zipcode | Phone Number | | Organization | | | | + +---------+ + + | EXTERNAL LAB | | | | + +---------+ + + Creatinine, Urine, Random (09/06/2014 1:36 PM PDT) + + + + + + | Component | Value | Ref Range | Performed | Pathologist | | | | | At | Signature | + + + + + + | Creatinine, | 172.0Comment: Testing | mg/dL | EXTERNAL | | | Urine | performed at [facility], [address] | | LAB | | | | [address], | | | | | | [place] [address] | | | | + + + + + + + + | Specimen | + + | | + + + +---------+ + + | Performing | Address | City/State/Zipcode | Phone Number | | Organization | | | | + +---------+ + + | EXTERNAL LAB | | | | + +---------+ + + Chloride, Urine, Random (09/06/2014 1:36 PM PDT) + + + + + + | Component | Value | Ref Range | Performed | Pathologist | | | | | At | Signature | + + + + + + | Chloride | 23Comment: Testing | mmol/L | EXTERNAL | | | Urine | performed at [facility], [address] | | LAB | | | | [address], | | | | | | [place] [address] | | | | + + + + + + + + | Specimen | + + | Urine specimen | | (specimen) | + + + +---------+ + + | Performing | Address | City/State/Zipcode | Phone Number | | Organization | | | | + +---------+ + + | EXTERNAL LAB | | | | + +---------+ + + POC Glucose (09/06/2014 1:05 PM PDT) + + + + + + | Component | Value | Ref Range | Performed | Pathologist | | | | | At | Signature | + + + + + + | Glucose, | 110 (H)Comment: Testing | 65 - 99 mg/dL | EXTERNAL | | | Fingerstick | performed at [facility];[address] | | LAB | | | | [address];[place], [place] | | | | | | [address] | | | | + + + + + + + + | Specimen | + + | | + + + +---------+ + + | Performing | Address | City/State/Zipcode | Phone Number | | Organization | | | | + +---------+ + + | EXTERNAL LAB | | | | + +---------+ + + Uric Acid (09/06/2014 12:23 PM PDT) + + + + + + | Component | Value | Ref Range | Performed | Pathologist | | | | | At | Signature | + + + + + + | Uric Acid | 8.9 (H)Comment: Testing | 2.2 - 7.1 mg/dL | EXTERNAL | | | | performed at [facility];[address] | | LAB | | | | [address];[place], [place] | | | | | | [address] | | | | + + + + + + + + | Specimen | + + | Blood specimen | | (specimen) | + + + +---------+ + + | Performing | Address | City/State/Zipcode | Phone Number | | Organization | | | | + +---------+ + + | EXTERNAL LAB | | | | + +---------+ + + Basic Metabolic Panel (09/06/2014 12:23 PM PDT) + + + + + + | Component | Value | Ref Range | Performed | Pathologist | | | | | At | Signature | + + + + + + | Na | 151 (H)Comment: Testing | 135 - 143 | EXTERNAL | | | | performed at [facility];[address] | mmol/L | LAB | | | | [address];[place] | | | | | | [address] | | | | + + + + + + | K | 3.9Comment: Testing | 3.5 - 4.9 | EXTERNAL | | | | performed at [facility];[address] | mmol/L | LAB | | | | [address];[place] | | | | | | [address] | | | | + + + + + + | Cl | 115 (H)Comment: Testing | 99 - 109 mmol/L | EXTERNAL | | | | performed at [facility];[address] | | LAB | | | | [address];[place] | | | | | | [address] | | | | + + + + + + | CO2 | 26Comment: Testing | 23 - 32 mmol/L | EXTERNAL | | | | performed at [facility];[address] | | LAB | | | | [address];[place] | | | | | | [address] | | | | + + + + + + | Anion Gap | 14Comment: Testing | 5 - 20 mmol/L | EXTERNAL | | | | performed at [facility];[address] | | LAB | | | | [address];[place] | | | | | | [address] | | | | + + + + + + | Glucose, | 110 (H)Comment: Testing | 65 - 99 mg/dL | EXTERNAL | | | Fasting | performed at [facility];[address] | | LAB | | | | [address];[place] | | | | | | [address] | | | | + + + + + + | BUN | 19Comment: Testing | 8 - 25 mg/dL | EXTERNAL | | | | performed at [facility];[address] | | LAB | | | | [address];[place] | | | | | | [address] | | | | + + + + + + | Creatinine | 1.23 (H)Comment: Testing | 0.50 - 1.00 | EXTERNAL | | | | performed at [facility];[address] | mg/dL | LAB | | | | [address];[place] | | | | | | [address] | | | | + + + + + + | BUN/Creatin | 16Comment: Testing | | EXTERNAL | | | ine Ratio | performed at [facility];[address] | | LAB | | | | [address];[place] | | | | | | [address] | | | | + + + + + + | Calcium | 9.1Comment: Testing | 8.5 - 10.5 | EXTERNAL | | | | performed at [facility];[address] | mg/dL | LAB | | | | [address];[place] | | | | | | [address] | | | | + + + + + + | Estimated | 51 (L)Comment: GFR <60: | mL/min/1.73m2 | EXTERNAL | | | GFR | CHRONIC KIDNEY DISEASE, | | LAB | | | | IF FOUND OVER A 3 MONTH | | | | | | PERIOD.GFR <15: KIDNEY | | | | | | FAILURE.FOR | | | | | | AMERICANS, MULTIPLY THE | | | | | | CALCULATED GFR BY | | | | | | 1.210.Testing performed | | | | | | at [facility];[address];[place] [address] | | | | + + + + + + + + | Specimen | + + | Blood specimen | | (specimen) | + + + +---------+ + + | Performing | Address | City/State/Zipcode | Phone Number | | Organization | | | | + +---------+ + + | EXTERNAL LAB | | | | + +---------+ + + POC Glucose (09/06/2014 12:05 PM PDT) + + + + + + | Component | Value | Ref Range | Performed | Pathologist | | | | | At | Signature | + + + + + + | Glucose, | 115 (H)Comment: Testing | 65 - 99 mg/dL | EXTERNAL | | | Fingerstick | performed at [facility];[address] | | LAB | | | | [address];[place] | | | | | | [address] | | | | + + + + + + + + | Specimen | + + | | + + + +---------+ + + | Performing | Address | City/State/Zipcode | Phone Number | | Organization | | | | + +---------+ + + | EXTERNAL LAB | | | | + +---------+ + + POC Glucose (09/06/2014 10:59 AM PDT) + + + + + + | Component | Value | Ref Range | Performed | Pathologist | | | | | At | Signature | + + + + + + | Glucose, | 201 (H)Comment: Testing | 65 - 99 mg/dL | EXTERNAL | | | Fingerstick | performed at [facility];[address] | | LAB | | | | [address];[place] | | | | | | [address] | | | | + + + + + + + + | Specimen | + + | | + + + +---------+ + + | Performing | Address | City/State/Zipcode | Phone Number | | Organization | | | | + +---------+ + + | EXTERNAL LAB | | | | + +---------+ + + POC CG 4, ISTAT Arterial (09/06/2014 10:23 AM PDT) + + + + + + | Component | Value | Ref Range | Performed | Pathologist | | | | | At | Signature | + + + + + + | PH ART | 7.488 (H)Comment: | 7.350 - 7.450 | EXTERNAL | | | | Testing performed at | | LAB | | | | [facility];[address];[place] [address] | | | | + + + + + + | PCO2 ART | 31 (L)Comment: Testing | 35 - 45 mmHg | EXTERNAL | | | | performed at [facility];[address] | | LAB | | | | [address];[place] | | | | | | [address] | | | | + + + + + + | PO2 ART | 93Comment: Testing | 80 - 105 mmHg | EXTERNAL | | | | performed at [facility];[address] | | LAB | | | | [address];[place] | | | | | | [address] | | | | + + + + + + | Lactate, | 0.6Comment: Testing | 0.36 - 1.25 | EXTERNAL | | | Arterial | performed at [facility];[address] | mmol/L | LAB | | | | [address];[place] | | | | | | [address] | | | | + + + + + + | HCO3 ART | 23Comment: Testing | 22 - 26 mmol/L | EXTERNAL | | | | performed at [facility];[address] | | LAB | | | | [address];[place] | | | | | | [address] | | | | + + + + + + | POC | 24Comment: Testing | 23 - 27 mEq/L | EXTERNAL | | | APPEARANCE | performed at [facility];[address] | | LAB | | | UA | [address];[place] | | | | | | [address] | | | | + + + + + + | Base | 0Comment: Testing | 0 - 3 mEq/L | EXTERNAL | | | Excess, | performed at [facility];[address] | | LAB | | | Arterial | [address];[place] | | | | | | [address] | | | | + + + + + + | O2 SAT ART | 98Comment: Testing | 95 - 98 % | EXTERNAL | | | | performed at [facility];[address] | | LAB | | | | [address];[place] | | | | | | [address] | | | | + + + + + + | FiO2, POC | 25Comment: Testing | % | EXTERNAL | | | | performed at [facility];[address] | | LAB | | | | [address];[place] | | | | | | [address] | | | | + + + + + + | Comment, | Tidal Volume = | | EXTERNAL | | | POC | 20Comment: Peep = 5Resp | | LAB | | | | Rate = 46Testing | | | | | | performed at [facility];[address] | | | | | | [address];[place], [place] | | | | | | [address] | | | | + + + + + + + + | Specimen | + + | | + + + +---------+ + + | Performing | Address | City/State/Zipcode | Phone Number | | Organization | | | | + +---------+ + + | EXTERNAL LAB | | | | + +---------+ + + External Lab: CBC (09/06/2014 8:45 AM PDT) + + + + + + | Component | Value | Ref Range | Performed | Pathologist | | | | | At | Signature | + + + + + + | WBC | 9.22Comment: Testing | 3.80 - 11.00 | EXTERNAL | | | | performed at [facility];[address] | K/uL | LAB | | | | [address];[place] | | | | | | [address] | | | | + + + + + + | RED CELL | 3.56 (L)Comment: Testing | 3.70 - 5.10 | EXTERNAL | | | COUNT | performed at [facility];[address] | M/uL | LAB | | | | [address];[place] | | | | | | [address] | | | | + + + + + + | Hgb | 11.6Comment: Testing | 11.3 - 15.5 | EXTERNAL | | | | performed at [facility];[address] | g/dL | LAB | | | | [address];[place] | | | | | | [address] | | | | + + + + + + | Hematocrit, | 33.7 (L)Comment: Testing | 34.0 - 46.0 % | EXTERNAL | | | POC | performed at [facility];[address] | | LAB | | | | [address];[place] | | | | | | [address] | | | | + + + + + + | MCV | 94.6Comment: Testing | 80.0 - 100.0 fl | EXTERNAL | | | | performed at [facility];[address] | | LAB | | | | [address];[place] | | | | | | [address] | | | | + + + + + + | MCH | 32.6Comment: Testing | 27.0 - 34.0 pg | EXTERNAL | | | | performed at [facility];[address] | | LAB | | | | [address];[place] | | | | | | [address] | | | | + + + + + + | MCHC | 34.5Comment: Testing | 32.0 - 35.5 | EXTERNAL | | | | performed at [facility];[address] | g/dL | LAB | | | | [address];[place] | | | | | | [address] | | | | + + + + + + | RDW-CV | 53.4 (H)Comment: Testing | 37 - 53 fl | EXTERNAL | | | | performed at [facility];[address] | | LAB | | | | [address];[place] | | | | | | [address] | | | | + + + + + + | Platelet | 344Comment: Testing | 150 - 400 K/uL | EXTERNAL | | | Count | performed at [facility];[address] | | LAB | | | Plasma | [address];[place] | | | | | | [address] | | | | + + + + + + | MPV | 7.3Comment: Testing | fl | EXTERNAL | | | | performed at [facility];[address] | | LAB | | | | [address];[place] | | | | | | [address] | | | | + + + + + + | Differentia | AUTOMATEDComment: | | EXTERNAL | | | l Type | Testing performed at | | LAB | | | | [facility];[address];[place] [address] | | | | + + + + + + | % Segmented | 59.60Comment: Testing | % | EXTERNAL | | | | performed at [facility];[address] | | LAB | | | Neutrophils | [address];[place] | | | | | | [address] | | | | + + + + + + | % | 24.07Comment: Testing | % | EXTERNAL | | | Lymphocytes | performed at [facility];[address] | | LAB | | | | [address];[place] | | | | | | [address] | | | | + + + + + + | % Monocytes | 15.67Comment: Testing | % | EXTERNAL | | | | performed at [facility];[address] | | LAB | | | | [address];[place] | | | | | | [address] | | | | + + + + + + | % | 0.24Comment: Testing | % | EXTERNAL | | | Eosinophils | performed at [facility];[address] | | LAB | | | | [address];[place] | | | | | | [address] | | | | + + + + + + | % Basophils | 0.42Comment: Testing | % | EXTERNAL | | | | performed at [facility];[address] | | LAB | | | | [address];[place] | | | | | | [address] | | | | + + + + + + | Absolute | 5.50Comment: Testing | 1.90 - 7.40 | EXTERNAL | | | Segmented | performed at [facility];[address] | K/uL | LAB | | | Neutrophils | [address];[place] | | | | | | [address] | | | | + + + + + + | Absolute | 2.22Comment: Testing | 1.00 - 3.90 | EXTERNAL | | | Lymphocytes | performed at [facility];[address] | K/uL | LAB | | | | [address];[place] | | | | | | [address] | | | | + + + + + + | Absolute | 1.45 (H)Comment: Testing | 0.00 - 0.80 | EXTERNAL | | | Monocytes | performed at [facility];[address] | K/uL | LAB | | | | [address];[place] | | | | | | [address] | | | | + + + + + + | Absolute | 0.02Comment: Testing | 0.00 - 0.50 | EXTERNAL | | | Eosinophils | performed at [facility];[address] | K/uL | LAB | | | | [address];[place] | | | | | | [address] | | | | + + + + + + | Absolute | 0.04Comment: Testing | 0.00 - 0.10 | EXTERNAL | | | Basophils | performed at [facility];[address] | K/uL | LAB | | | | [address];[place] | | | | | | [address] | | | | + + + + + + + + | Specimen | + + | Blood specimen | | (specimen) | + + + +---------+ + + | Performing | Address | City/State/Zipcode | Phone Number | | Organization | | | | + +---------+ + + | EXTERNAL LAB | | | | + +---------+ + + Phosphorus (09/06/2014 8:45 AM PDT) + + + + + + | Component | Value | Ref Range | Performed | Pathologist | | | | | At | Signature | + + + + + + | PHOSPHORUS | 3.1Comment: Testing | 2.3 - 4.8 mg/dL | EXTERNAL | | | | performed at [facility];[address] | | LAB | | | | [address];[place], [place] | | | | | | [address] | | | | + + + + + + + + | Specimen | + + | Blood specimen | | (specimen) | + + + +---------+ + + | Performing | Address | City/State/Zipcode | Phone Number | | Organization | | | | + +---------+ + + | EXTERNAL LAB | | | | + +---------+ + + Magnesium (09/06/2014 8:45 AM PDT) + + + + + + | Component | Value | Ref Range | Performed | Pathologist | | | | | At | Signature | + + + + + + | Magnesium | 2.6 (H)Comment: Testing | 1.7 - 2.4 mg/dL | EXTERNAL | | | | performed at [facility] | | LAB | | | | [address];[place] | | | | | | [address] | | | | + + + + + + + + | Specimen | + + | Blood specimen | | (specimen) | + + + +---------+ + + | Performing | Address | City/State/Zipcode | Phone Number | | Organization | | | | + +---------+ + + | EXTERNAL LAB | | | | + +---------+ + + Basic Metabolic Panel (09/06/2014 8:45 AM PDT) + + + + + + | Component | Value | Ref Range | Performed | Pathologist | | | | | At | Signature | + + + + + + | Na | 149 (H)Comment: Testing | 135 - 143 | EXTERNAL | | | | performed at [facility];[address] | mmol/L | LAB | | | | [address];[place] | | | | | | [address] | | | | + + + + + + | K | 3.5Comment: Testing | 3.5 - 4.9 | EXTERNAL | | | | performed at [facility];888 | mmol/L | LAB | | | | [address];[place] | | | | | | [address] | | | | + + + + + + | Cl | 113 (H)Comment: Testing | 99 - 109 mmol/L | EXTERNAL | | | | performed at [facility];[address] | | LAB | | | | [address];[place] | | | | | | [address] | | | | + + + + + + | CO2 | 23Comment: Testing | 23 - 32 mmol/L | EXTERNAL | | | | performed at [facility];[address] | | LAB | | | | [address];[place] | | | | | | [address] | | | | + + + + + + | Anion Gap | 16Comment: Testing | 5 - 20 mmol/L | EXTERNAL | | | | performed at [facility];[address] | | LAB | | | | [address];[place] | | | | | | [address] | | | | + + + + + + | Glucose, | 187 (H)Comment: Testing | 65 - 99 mg/dL | EXTERNAL | | | Fasting | performed at [facility];[address] | | LAB | | | | [address];[place] | | | | | | [address] | | | | + + + + + + | BUN | 19Comment: Testing | 8 - 25 mg/dL | EXTERNAL | | | | performed at [facility];[address] | | LAB | | | | [address];[place] | | | | | | [address] | | | | + + + + + + | Creatinine | 1.00Comment: Testing | 0.50 - 1.00 | EXTERNAL | | | | performed at [facility];888 | mg/dL | LAB | | | | [address];[place] | | | | | | [address] | | | | + + + + + + | BUN/Creatin | 19Comment: Testing | | EXTERNAL | | | ine Ratio | performed at [facility];[address] | | LAB | | | | [address];[place] | | | | | | [address] | | | | + + + + + + | Calcium | 9.1Comment: Testing | 8.5 - 10.5 | EXTERNAL | | | | performed at [facility];888 | mg/dL | LAB | | | | [address];[place] | | | | | | [address] | | | | + + + + + + | Estimated | >60Comment: GFR <60: | mL/min/1.73m2 | EXTERNAL | | | GFR | CHRONIC KIDNEY DISEASE, | | LAB | | | | IF FOUND OVER A 3 MONTH | | | | | | PERIOD.GFR <15: KIDNEY | | | | | | FAILURE.FOR | | | | | | AMERICANS, MULTIPLY THE | | | | | | CALCULATED GFR BY | | | | | | 1.210.Testing performed | | | | | | at [facility];[address] [place] [address] | | | | | | Bl;[place] [address] | | | | + + + + + + + + | Specimen | + + | Blood specimen | | (specimen) | + + + +---------+ + + | Performing | Address | City/State/Zipcode | Phone Number | | Organization | | | | + +---------+ + + | EXTERNAL LAB | | | | + +---------+ + + Gram Stain, reflex Sputum Culture (09/06/2014 5:52 AM PDT) + + | Specimen | + + | Body fluid sample | | (specimen) | + + + + + | Narrative | Performed At | + + + | Specimen Description TRACHEAL ASPIRATE GRAM | EXTERNAL LAB | | STAIN LESS THAN 10 WBCS/LPF | | | GREATER THAN 10 | | | SEC/LPF 1+ | | | GRAM | | | POSITIVE COCCI 1+ | | | | | | YEAST CULTURE 1+ | | | NORMAL | | | UPPER RESPIRATORY JESS | | | Testing performed at [facility], [address], [place] | | | [address] | | + + + + +---------+ + + | Performing | Address | City/State/Zipcode | Phone Number | | Organization | | | | + +---------+ + + | EXTERNAL LAB | | | | + +---------+ + + ECG 12 lead (09/06/2014 4:52 AM PDT) + + + + + + | Component | Value | Ref Range | Performed | Pathologist | | | | | At | Signature | + + + + + + | DIAGNOSIS: | Sinus | | EXTERNAL | | | | tachycardiaOtherwise | | LAB | | | | normal ECGWhen compared | | | | | | with ECG of 05-SEP-2014 | | | | | | 19:36,No significant | | | | | | change was | | | | | | foundConfirmed by CHYNA | | | | | Monica Reyes) on 09/06/2014 | | | | | | 4:01:36 PM | | | | + + + + + + + + | Specimen | + + | | + + + + + | Narrative | Performed At | + + + | [facility] | EXTERNAL LAB | + + + + +---------+ + + | Performing | Address | City/State/Zipcode | Phone Number | | Organization | | | | + +---------+ + + | EXTERNAL LAB | | | | + +---------+ + + POC Glucose (09/06/2014 4:45 AM PDT) + + + + + + | Component | Value | Ref Range | Performed | Pathologist | | | | | At | Signature | + + + + + + | Glucose, | 245 (H)Comment: Testing | 65 - 99 mg/dL | EXTERNAL | | | Fingerstick | performed at [facility];[address] | | LAB | | | | [address];[place] | | | | | | [address] | | | | + + + + + + + + | Specimen | + + | | + + + +---------+ + + | Performing | Address | City/State/Zipcode | Phone Number | | Organization | | | | + +---------+ + + | EXTERNAL LAB | | | | + +---------+ + + Hemoglobin A1C (09/06/2014 4:44 AM PDT) + + + + + + | Component | Value | Ref Range | Performed | Pathologist | | | | | At | Signature | + + + + + + | Hemoglobin | 5.1Comment: The [place] | 4.0 - 6.0 % | EXTERNAL | | | A1c | Diabetes Association | | LAB | | | | considers a hemoglobin | | | | | | A1c result of <7.0% to | | | | | | be the goal of diabetic | | | | | | therapy. When results | | | | | | are consistently >8.0%, | | | | | | the ADA suggests | | | | | | reevaluation of the | | | | | | treatment regimen. The | | | | | | testing method used is | | | | | | certified traceable to | | | | | | the Diabetes Control and | | | | | | Complications Trial | | | | | | reference method.Testing | | | | | | performed at [facility], [address] | | | | | [address], | | | | | | [place] [address] | | | | + + + + + + | Glycohemogl | 100Comment: The ADA | mg/dL | EXTERNAL | | | obin | considers an eAG result | | LAB | | | (GHb),Total | of LT 154 mg/dL to be | | | | | | the goal of diabetic | | | | | | therapy. Estimated | | | | | | Average Glucose | | | | | | calculated from | | | | | | hemoglobin A1c by use of | | | | | | the ADA recommended | | | | | | formula.Testing | | | | | | performed at [facility], [address] | | | [address] | [address], | | | | | | [place] [address] | | | | + + + + + + + + | Specimen | + + | Blood specimen | | (specimen) | + + + +---------+ + + | Performing | Address | City/State/Zipcode | Phone Number | | Organization | | | | + +---------+ + + | EXTERNAL LAB | | | | + +---------+ + + CK Total (09/06/2014 4:44 AM PDT) + + + + + + | Component | Value | Ref Range | Performed | Pathologist | | | | | At | Signature | + + + + + + | CK, Total | 152Comment: Testing | 30 - 240 U/L | EXTERNAL | | | | performed at [facility];[address] | | LAB | | | | [address];[place], [place] | | | | | | [address] | | | | + + + + + + + + | Specimen | + + | Blood specimen | | (specimen) | + + + +---------+ + + | Performing | Address | City/State/Zipcode | Phone Number | | Organization | | | | + +---------+ + + | EXTERNAL LAB | | | | + +---------+ + + XR Chest 1 Vw (09/06/2014 3:19 AM PDT) + + | Specimen | + + | | + + + + + | Impressions | Performed At | + + + | 1. Placement of a left IJ central venous catheter with its tip at | | | the cavoatrial junction. No evidence of pneumothorax or other | | | significant change. | | + + + + + + | Narrative | Performed At | + + + | [facility] XR CHEST 1 VIEW 09/06/2014 3:19 AM HISTORY: Line | | | placement. TECHNIQUE: One view chest. FINDINGS: Compared | | | with 09/06/14 at 0142 hrs. Endotracheal and nasogastric tubes are | | | unchanged. A left IJ central venous catheter has been placed and the | | | tip is near the cavoatrial junction. No pneumothorax or other | | | significant change. | | + + + + + | Procedure Note | + + | Demario, Rad Conversion - 12/02/2018 4:36 AM PDT KAIT ESCOBARXR CHEST 1 VIEW09/06/2014 | | 3:19 AM HISTORY:Line placement. TECHNIQUE:One view chest. FINDINGS:Compared with 09/06/14 | | at 0142 hrs. Endotracheal and nasogastric tubes are unchanged. A left IJ central venous | | catheter has been placed and the tip is near the cavoatrial junction. No pneumothorax | | or other significant change. IMPRESSION: 1. Placement of a left IJ central venous | | catheter with its tip at the cavoatrial junction. No evidence of pneumothorax or other | | significant change. | | AM | |One view chest. | | | |FINDINGS: | |Compared with 09/06/14 at 0142 hrs. Endotracheal and nasogastric tubes are unchanged. A left IJ central venous catheter has been placed and the tip is near the cavoatrial junction. No pneumothorax or other significant change. | | | |IMPRESSION: | |1. Placement of a left IJ central venous catheter with its tip at the cavoatrial junction. No evidence of pneumothorax or other significant change. | | | | | + + POC CG 4, ISTAT Arterial (09/06/2014 3:12 AM PDT) + + + + + + | Component | Value | Ref Range | Performed | Pathologist | | | | | At | Signature | + + + + + + | PH ART | 7.615 ()Comment: | 7.350 - 7.450 | EXTERNAL | | | | Testing performed at | | LAB | | | | [facility] [address] | | | | | | [address];[place] [address] | | | | + + + + + + | PCO2 ART | 21 (L)Comment: Testing | 35 - 45 mmHg | EXTERNAL | | | | performed at [facility];[address] | | LAB | | | | [address];[place] | | | | | | [address] | | | | + + + + + + | PO2 ART | 61 (L)Comment: Testing | 80 - 105 mmHg | EXTERNAL | | | | performed at [facility];[address] | | LAB | | | | [address];[place] | | | | | | [address] | | | | + + + + + + | Lactate, | 0.9Comment: Testing | 0.36 - 1.25 | EXTERNAL | | | Arterial | performed at [facility];[address] | mmol/L | LAB | | | | [address];[place] | | | | | | [address] | | | | + + + + + + | HCO3 ART | 22Comment: Testing | 22 - 26 mmol/L | EXTERNAL | | | | performed at [facility];[address] | | LAB | | | | [address];[place] | | | | | | [address] | | | | + + + + + + | POC | 22 (L)Comment: Testing | 23 - 27 mEq/L | EXTERNAL | | | APPEARANCE | performed at [facility];[address] | | LAB | | | UA | [address];[place] | | | | | | [address] | | | | + + + + + + | Base | 0Comment: Testing | 0 - 3 mEq/L | EXTERNAL | | | Excess, | performed at [facility];[address] | | LAB | | | Arterial | [address];[place] | | | | | | [address] | | | | + + + + + + | O2 SAT ART | 95Comment: Testing | 95 - 98 % | EXTERNAL | | | | performed at [facility];[address] | | LAB | | | | [address];[place] | | | | | | [address] | | | | + + + + + + | FiO2, POC | 25Comment: Testing | % | EXTERNAL | | | | performed at [facility];[address] | | LAB | | | | [address];[place] | | | | | | [address] | | | | + + + + + + | Comment, | Tidal Volume = | | EXTERNAL | | | POC | 472Comment: Peep = 5Resp | | LAB | | | | Rate = 32Testing | | | | | | performed at [facility];[address] | | | | | | [address];[place] | | | | | | [address] | | | | + + + + + + + + | Specimen | + + | | + + + +---------+ + + | Performing | Address | City/State/Zipcode | Phone Number | | Organization | | | | + +---------+ + + | EXTERNAL LAB | | | | + +---------+ + + MRSA NAAT (09/06/2014 2:27 AM PDT) + + | Specimen | + + | | + + + + + | Narrative | Performed At | + + + | SOURCE NARES(NOSE) | EXTERNAL LAB | | Testing performed at [facility];[address] [place] [address];[place] [address] MRSA PCR | | | NEGATIVE Testing performed at | | | [address];[place] [address] | | + + + + +---------+ + + | Performing | Address | City/State/Zipcode | Phone Number | | Organization | | | | + +---------+ + + | EXTERNAL LAB | | | | + +---------+ + + XR Chest 1 Vw (09/06/2014 2:10 AM PDT) + + | Specimen | + + | | + + + + + | Impressions | Performed At | + + + | 1. Tubes and lines in expected positions. 2. Blunting of the | | | right costophrenic sulcus, suggesting a minimal pleural effusion or | | | pleural thickening. 3. Mild scarring or atelectasis in the right | | | lung base. Electronically signed by Tyree Garay MD on | | | 09/06/2014 7:08 AM | | + + + + + + | Narrative | Performed At | + + + | [facility] XR CHEST 1 VIEW 09/06/2014 2:10 AM HISTORY: | | | Respiratory failure. TECHNIQUE: One view of the chest | | | FINDINGS: Compared with 09/04/14. An endotracheal tube has been placed | | | and the tip is 4 cm above the tom. Nasogastric tube tip projects | | | below the diaphragm, probably in the stomach. There is persistent | | | blunting of the right costophrenic sulcus, suggesting a small right | | | pleural effusion or pleural thickening. There is minimal atelectasis | | | or scarring in the right lung base. Heart size appears normal. No | | | evidence of a pneumothorax. | | + + + + + | Procedure Note | + + | Jose Hanks Conversion - 12/02/2018 4:36 AM PDT KAIT ESCOBARXR CHEST 1 VIEW09/06/2014 | | 2:10 AM HISTORY:Respiratory failure. TECHNIQUE:One view of the chest FINDINGS:Compared | | with 09/04/14. An endotracheal tube has been placed and the tip is 4 cm above the tom. | | Nasogastric tube tip projects below the diaphragm, probably in the stomach. There is | | persistent blunting of the right costophrenic sulcus, suggesting a small right pleural | | effusion or pleural thickening. There is minimal atelectasis or scarring in the right | | lung base. Heart size appears normal. No evidence of a pneumothorax. IMPRESSION: 1. | | Tubes and lines in expected positions.2. Blunting of the right costophrenic sulcus, | | suggesting a minimal pleural effusion or pleural thickening.3. Mild scarring or | | atelectasis in the right lung base. Electronically signed by Tyree Garay MD on | | 09/06/2014 7:08 AM | |Compared with 09/04/14. An endotracheal tube has been placed and the tip is 4 cm above the c elizabeth. Nasogastric tube tip projects below the diaphragm, probably in the stomach. There is persistent blunting of the right costophrenic sulcus, suggesting a | |small right pleural effusion or pleural thickening. There is minimal atelectasis or scarrin g in the right lung base. Heart size appears normal. No evidence of a pneumothorax. | | | |IMPRESSION: | |1. Tubes and lines in expected positions. | |2. Blunting of the right costophrenic sulcus, suggesting a minimal pleural effusion or ple ural thickening. | |3. Mild scarring or atelectasis in the right lung base. | | | | | + + Osmolality, Urine (09/06/2014 1:30 AM PDT) + + + + + + | Component | Value | Ref Range | Performed | Pathologist | | | | | At | Signature | + + + + + + | OSMO URINE | 480Comment: Testing | 50 - 1,200 | EXTERNAL | | | | performed at [facility];[address] | mOsm/kg | LAB | | | | [address];[place] | | | | | | [address] | | | | + + + + + + + + | Specimen | + + | Urine specimen | | (specimen) | + + + +---------+ + + | Performing | Address | City/State/Zipcode | Phone Number | | Organization | | | | + +---------+ + + | EXTERNAL LAB | | | | + +---------+ + + POC CG 4, ISTAT Arterial (09/06/2014 1:15 AM PDT) + + + + + + | Component | Value | Ref Range | Performed | Pathologist | | | | | At | Signature | + + + + + + | PH ART | 7.650 (HH)Comment: | 7.350 - 7.450 | EXTERNAL | | | | Testing performed at | | LAB | | | | [facility];[address];[place] [address] | | | | + + + + + + | PCO2 ART | 18 (LL)Comment: Testing | 35 - 45 mmHg | EXTERNAL | | | | performed at [facility];[address] | | LAB | | | | [address];[place] | | | | | | [address] | | | | + + + + + + | PO2 ART | 66 (L)Comment: Testing | 80 - 105 mmHg | EXTERNAL | | | | performed at [facility];[address] | | LAB | | | | [address];[place] | | | | | | [address] | | | | + + + + + + | Lactate, | 0.9Comment: Testing | 0.36 - 1.25 | EXTERNAL | | | Arterial | performed at [facility];[address] | mmol/L | LAB | | | | [address];[place] | | | | | | [address] | | | | + + + + + + | HCO3 ART | 20 (L)Comment: Testing | 22 - 26 mmol/L | EXTERNAL | | | | performed at [facility];[address] | | LAB | | | | [address];[place] | | | | | | [address] | | | | + + + + + + | POC | 21 (L)Comment: Testing | 23 - 27 mEq/L | EXTERNAL | | | APPEARANCE | performed at [facility];[address] | | LAB | | | UA | [address];[place] | | | | | | [address] | | | | + + + + + + | Base | 1Comment: Testing | 0.0 - 2.0 | EXTERNAL | | | deficit | performed at [facility];[address] | mmol/L | LAB | | | | [address];[place] | | | | | | [address] | | | | + + + + + + | O2 SAT ART | 97Comment: Testing | 95 - 98 % | EXTERNAL | | | | performed at [facility];[address] | | LAB | | | | [address];[place] | | | | | | [address] | | | | + + + + + + | FiO2, POC | 21Comment: Testing | % | EXTERNAL | | | | performed at [facility];[address] | | LAB | | | | [address];[place] | | | | | | [address] | | | | + + + + + + + + | Specimen | + + | | + + + +---------+ + + | Performing | Address | City/State/Zipcode | Phone Number | | Organization | | | | + +---------+ + + | EXTERNAL LAB | | | | + +---------+ + + PTT (09/06/2014 1:08 AM PDT) + + + + + + | Component | Value | Ref Range | Performed | Pathologist | | | | | At | Signature | + + + + + + | aPTT, | 32Comment: Testing | 23 - 32 seconds | EXTERNAL | | | Patient | performed at [facility];[address] | | LAB | | | | [address];[place] | | | | | | [address] | | | | + + + + + + + + | Specimen | + + | Blood specimen | | (specimen) | + + + +---------+ + + | Performing | Address | City/State/Zipcode | Phone Number | | Organization | | | | + +---------+ + + | EXTERNAL LAB | | | | + +---------+ + + Protime INR (09/06/2014 1:08 AM PDT) + + + + + + | Component | Value | Ref Range | Performed | Pathologist | | | | | At | Signature | + + + + + + | INR | 1.3Comment: REFERENCE | | EXTERNAL | | | | RANGE:0.9 - 1.2 | | LAB | | | | NON-ANTICOAGULATED2.0 | | [...] | | | | | performed at [facility] | | | | | | [facility];[place], [place] | | | | | | [address] | | | | + + + + + + + + | Specimen | + + | Blood specimen | | (specimen) | + + + +---------+ + + | Performing | Address | City/State/Zipcode | Phone Number | | Organization | | | | + +---------+ + + | EXTERNAL LAB | | | | + +---------+ + + Phosphorus (09/06/2014 1:08 AM PDT) + + + + + + | Component | Value | Ref Range | Performed | Pathologist | | | | | At | Signature | + + + + + + | PHOSPHORUS | 1.2 (L)Comment: Testing | 2.3 - 4.8 mg/dL | EXTERNAL | | | | performed at [facility];[address] | | LAB | | | | [address];[place], [place] | | | | | | [address] | | | | + + + + + + + + | Specimen | + + | Blood specimen | | (specimen) | + + + +---------+ + + | Performing | Address | City/State/Zipcode | Phone Number | | Organization | | | | + +---------+ + + | EXTERNAL LAB | | | | + +---------+ + + Osmolality, Serum (09/06/2014 1:08 AM PDT) + + + + + + | Component | Value | Ref Range | Performed | Pathologist | | | | | At | Signature | + + + + + + | Osmolality, | 322 (H)Comment: Testing | 275 - 295 | EXTERNAL | | | Serum | performed at [facility];[address] | mOsm/kg | LAB | | | | [address];[place] | | | | | | [address] | | | | + + + + + + + + | Specimen | + + | Blood specimen | | (specimen) | + + + +---------+ + + | Performing | Address | City/State/Zipcode | Phone Number | | Organization | | | | + +---------+ + + | EXTERNAL LAB | | | | + +---------+ + + Magnesium (09/06/2014 1:08 AM PDT) + + + + + + | Component | Value | Ref Range | Performed | Pathologist | | | | | At | Signature | + + + + + + | Magnesium | 1.3 (L)Comment: Testing | 1.7 - 2.4 mg/dL | EXTERNAL | | | | performed at [facility];[address] | | LAB | | | | [address];[place], [place] | | | | | | [address] | | | | + + + + + + + + | Specimen | + + | Blood specimen | | (specimen) | + + + +---------+ + + | Performing | Address | City/State/Zipcode | Phone Number | | Organization | | | | + +---------+ + + | EXTERNAL LAB | | | | + +---------+ + + Comprehensive Metabolic Panel (09/06/2014 1:08 AM PDT) + + + + + + | Component | Value | Ref Range | Performed | Pathologist | | | | | At | Signature | + + + + + + | Na | 144 (H)Comment: Testing | 135 - 143 | EXTERNAL | | | | performed at [facility];[address] | mmol/L | LAB | | | | [address];[place] | | | | | | [address] | | | | + + + + + + | K | 2.8 (L)Comment: Testing | 3.5 - 4.9 | EXTERNAL | | | | performed at [facility];[address] | mmol/L | LAB | | | | [address];[place] | | | | | | [address] | | | | + + + + + + | Cl | 106Comment: Testing | 99 - 109 mmol/L | EXTERNAL | | | | performed at [facility];[address] | | LAB | | | | [address];[place] | | | | | | [address] | | | | + + + + + + | CO2 | 22 (L)Comment: Testing | 23 - 32 mmol/L | EXTERNAL | | | | performed at [facility];[address] | | LAB | | | | [address];[place] | | | | | | [address] | | | | + + + + + + | Anion Gap | 18Comment: Testing | 5 - 20 mmol/L | EXTERNAL | | | | performed at [facility];[address] | | LAB | | | | [address];[place] | | | | | | [address] | | | | + + + + + + | Glucose, | 276 (H)Comment: Testing | 65 - 99 mg/dL | EXTERNAL | | | Fasting | performed at [facility];[address] | | LAB | | | | [address];[place] | | | | | | [address] | | | | + + + + + + | BUN | 17Comment: Testing | 8 - 25 mg/dL | EXTERNAL | | | | performed at [facility];[address] | | LAB | | | | [address];[place] | | | | | | [address] | | | | + + + + + + | Creatinine | 0.94Comment: Testing | 0.50 - 1.00 | EXTERNAL | | | | performed at [facility];[address] | mg/dL | LAB | | | | [address];[place] | | | | | | [address] | | | | + + + + + + | BUN/Creatin | 18Comment: Testing | | EXTERNAL | | | ine Ratio | performed at [facility];[address] | | LAB | | | | [address];[place] | | | | | | [address] | | | | + + + + + + | Calcium | 9.2Comment: Testing | 8.5 - 10.5 | EXTERNAL | | | | performed at [facility];[address] | mg/dL | LAB | | | | [address];[place] | | | | | | [address] | | | | + + + + + + | Protein, | 6.7Comment: Testing | 6.3 - 8.2 g/dL | EXTERNAL | | | Total | performed at [facility];[address] | | LAB | | | | [address];[place] | | | | | | [address] | | | | + + + + + + | Albumin | 2.8 (L)Comment: Testing | 3.6 - 5.0 g/dL | EXTERNAL | | | | performed at [facility];[address] | | LAB | | | | [address];[place] | | | | | | [address] | | | | + + + + + + | Globulin | 3.8Comment: Testing | 1.3 - 4.9 g/dL | EXTERNAL | | | | performed at [facility];[address] | | LAB | | | | [address];[place] | | | | | | [address] | | | | + + + + + + | A/G Ratio | 0.7 (L)Comment: Testing | 1.0 - 2.4 | EXTERNAL | | | | performed at [facility];[address] | | LAB | | | | [address];[place] | | | | | | [address] | | | | + + + + + + | Bilirubin | 0.5Comment: Testing | 0.1 - 1.5 mg/dL | EXTERNAL | | | Total | performed at [facility];[address] | | LAB | | | | [address];[place] | | | | | | [address] | | | | + + + + + + | ALP, | 81Comment: Testing | 35 - 115 U/L | EXTERNAL | | | External | performed at [facility];[address] | | LAB | | | | [address];[place] | | | | | | [address] | | | | + + + + + + | AST | 36Comment: Testing | 10 - 45 U/L | EXTERNAL | | | | performed at [facility];[address] | | LAB | | | | [address];[place] | | | | | | [address] | | | | + + + + + + | ALT | 63Comment: Testing | 10 - 65 U/L | EXTERNAL | | | | performed at [facility];[address] | | LAB | | | | [address];[place] | | | | | | [address] | | | | + + + + + + | Estimated | >60Comment: GFR <60: | mL/min/1.73m2 | EXTERNAL | | | GFR | CHRONIC KIDNEY DISEASE, | | LAB | | | | IF FOUND OVER A 3 MONTH | | | | | | PERIOD.GFR <15: KIDNEY | | | | | | FAILURE.FOR | | | | | | AMERICANS, MULTIPLY THE | | | | | | CALCULATED GFR BY | | | | | | 1.210.Testing performed | | | | | | at [facility];[address] | | | | | | [address];[place] [address] | | | | + + + + + + + + | Specimen | + + | Blood specimen | | (specimen) | + + + +---------+ + + | Performing | Address | City/State/Zipcode | Phone Number | | Organization | | | | + +---------+ + + | EXTERNAL LAB | | | | + +---------+ + + CT Angiogram Pulmonary w Contrast (09/05/2014 10:34 PM PDT) + + | Specimen | + + | | + + + + + | Narrative | Performed At | + + + | This is a non-reportable procedure without a radiologist report and | | | is used for image storage only | | + + + + + | Procedure Note | + + | Jose Hanks - 12/02/2018 4:36 AM PDT This is a non-reportable procedure | | without a radiologist report and isused for image storage only | + + ECG 12 lead (09/05/2014 7:36 PM PDT) + + + + + + | Component | Value | Ref Range | Performed | Pathologist | | | | | At | Signature | + + + + + + | DIAGNOSIS: | Sinus | | EXTERNAL | | | | tachycardiaPossible Left | | LAB | | | | atrial | | | | | | enlargementBorderline | | | | | | ECGWhen compared with | | | | | | ECG of 23-MAR-2013 | | | | | | 14:59,Vent. rate has | | | | | | increased BY 54 BPMT | | | | | | wave inversion no longer | | | | | | evident in Anterior | | | | | | leadsThis ECG contains | | | | | | Unconfirmed | | | | | | Interpretation | | | | | | Statements. See ED | | | | | | Record for Physician | | | | | | Interpretation. | | | | | | Confirmed by MUSE READ | | | | | | ONLY, -COMPUTER ([id number]), | | | | | | social media editor Virginie Robbins | | | | | | ([phone]) on 09/06/2014 | | | | | | 12:58:10 AM | | | | + + + + + + + + | Specimen | + + | | + + + + + | Narrative | Performed At | + + + | Historically converted procedure from [facility] environment | EXTERNAL LAB | + + + + +---------+ + + | Performing | Address | City/State/Zipcode | Phone Number | | Organization | | | | + +---------+ + + | EXTERNAL LAB | | | | + +---------+ + + POC CG 4, ISTAT Arterial (09/05/2014 6:23 PM PDT) + + + + + + | Component | Value | Ref Range | Performed | Pathologist | | | | | At | Signature | + + + + + + | PH ART | [phone] (HH)Comment: | 7.350 - 7.450 | EXTERNAL | | | | Testing performed at | | LAB | | | | [facility];[address] | | | | | [address];[place] [address] | | | | + + + + + + | PCO2 ART | 12 (LL)Comment: Testing | 35 - 45 mmHg | EXTERNAL | | | | performed at [facility];[address] | | LAB | | | | [address];[place] | | | | | | [address] | | | | + + + + + + | PO2 ART | 86Comment: Testing | 80 - 105 mmHg | EXTERNAL | | | | performed at [facility];[address] | | LAB | | | | [address];[place] | | | | | | [address] | | | | + + + + + + | Lactate, | 1.4 (H)Comment: Testing | 0.36 - 1.25 | EXTERNAL | | | Arterial | performed at [facility];888 | mmol/L | LAB | | | | [address];[place] | | | | | | [address] | | | | + + + + + + | HCO3 ART | 11 (L)Comment: Testing | 22 - 26 mmol/L | EXTERNAL | | | | performed at [facility];[address] | | LAB | | | | [address];[place] | | | | | | [address] | | | | + + + + + + | POC | 11 (L)Comment: Testing | 23 - 27 mEq/L | EXTERNAL | | | APPEARANCE | performed at [facility];[address] | | LAB | | | UA | [address];[place] | | | | | | [address] | | | | + + + + + + | Base | 11 (H)Comment: Testing | 0.0 - 2.0 | EXTERNAL | | | deficit | performed at [facility];888 | mmol/L | LAB | | | | [address];[place] | | | | | | [address] | | | | + + + + + + | O2 SAT ART | 98Comment: Testing | 95 - 98 % | EXTERNAL | | | | performed at [facility];[address] | | LAB | | | | [address];[place] | | | | | | [address] | | | | + + + + + + + + | Specimen | + + | | + + + +---------+ + + | Performing | Address | City/State/Zipcode | Phone Number | | Organization | | | | + +---------+ + + | EXTERNAL LAB | | | | + +---------+ + + Ketones, blood (09/05/2014 5:40 PM PDT) + + + + + + | Component | Value | Ref Range | Performed | Pathologist | | | | | At | Signature | + + + + + + | Ketones, | MODERATE (A)Comment: | | EXTERNAL | | | Blood | Testing performed at | | LAB | | | | [facility];[address] [place] [address] | | | | | | Blvd;[place] [address] | | | | + + + + + + + + | Specimen | + + | | + + + +---------+ + + | Performing | Address | City/State/Zipcode | Phone Number | | Organization | | | | + +---------+ + + | EXTERNAL LAB | | | | + +---------+ + + HISTORICAL LAB PANEL RESULT (09/05/2014 5:40 PM PDT) + + + + + -+ | Component | Value | Ref Range | Performed | Pathologist | | | | | At | Signature | + + + + + -+ | WBC | 11.13 (H)Comment: | 3.80 - 11.00 | EXTERNAL | | | | Testing performed at | K/uL | LAB | | | | [facility];[address] | | | | | [address];[place] [address] | | | | + + + + + -+ | RED CELL | 4.46Comment: Testing | 3.70 - 5.10 | EXTERNAL | | | COUNT | performed at [facility];888 | M/uL | LAB | | | | [address];[place] | | | | | | [address] | | | | + + + + + -+ | Hgb | 14.8Comment: Testing | 11.3 - 15.5 | EXTERNAL | | | | performed at [facility];888 | g/dL | LAB | | | | [address];[place] | | | | | | [address] | | | | + + + + + -+ | Hematocrit, | 42.9Comment: Testing | 34.0 - 46.0 % | EXTERNAL | | | POC | performed at [facility];[address] | | LAB | | | | [address];[place] | | | | | | [address] | | | | + + + + + -+ | MCV | 96.3Comment: Testing | 80.0 - 100.0 fl | EXTERNAL | | | | performed at [facility];[address] | | LAB | | | | [address];[place] | | | | | | [address] | | | | + + + + + -+ | MCH | 33.2Comment: Testing | 27.0 - 34.0 pg | EXTERNAL | | | | performed at [facility];[address] | | LAB | | | | [address];[place] | | | | | | [address] | | | | + + + + + -+ | MCHC | 34.5Comment: Testing | 32.0 - 35.5 | EXTERNAL | | | | performed at [facility];888 | g/dL | LAB | | | | [address];[place] | | | | | | [address] | | | | + + + + + -+ | RDW-CV | 53.4 (H)Comment: Testing | 37 - 53 fl | EXTERNAL | | | | performed at [facility];[address] | | LAB | | | | [address];[place] | | | | | | [address] | | | | + + + + + -+ | Platelet | 393Comment: Testing | 150 - 400 K/uL | EXTERNAL | | | Count | performed at [facility];[address] | | LAB | | | Plasma | [address];[place] | | | | | | [address] | | | | + + + + + -+ | MPV | 7.6Comment: Testing | fl | EXTERNAL | | | | performed at [facility];[address] | | LAB | | | | [address];[place] | | | | | | [address] | | | | + + + + + -+ | Differentia | AUTOMATEDComment: | | EXTERNAL | | | l Type | Testing performed at | | LAB | | | | [facility];[address] | | | | [address];[place] [address] | | | | + + + + + -+ | % Segmented | 78.26Comment: Testing | % | EXTERNAL | | | | performed at [facility];[address] | | LAB | | | Neutrophils | [address];[place] | | | | | | [address] | | | | + + + + + -+ | % | 8.69Comment: Testing | % | EXTERNAL | | | Lymphocytes | performed at [facility];[address] | | LAB | | | | [address];[place] | | | | | | [address] | | | | + + + + + -+ | % Monocytes | 12.49Comment: Testing | % | EXTERNAL | | | | performed at [facility];[address] | | LAB | | | | [address];[place] | | | | | | [address] | | | | + + + + + -+ | % | 0.12Comment: Testing | % | EXTERNAL | | | Eosinophils | performed at [facility];[address] | | LAB | | | | [address];[place] | | | | | | [address] | | | | + + + + + -+ | % Basophils | 0.44Comment: Testing | % | EXTERNAL | | | | performed at [facility];[address] | | LAB | | | | [address];[place] | | | | | | [address] | | | | + + + + + -+ | Absolute | 8.71 (H)Comment: Testing | 1.90 - 7.40 | EXTERNAL | | | Segmented | performed at [facility];888 | K/uL | LAB | | | Neutrophils | [address];[place] | | | | | | [address] | | | | + + + + + -+ | Absolute | 0.97 (L)Comment: Testing | 1.00 - 3.90 | EXTERNAL | | | Lymphocytes | performed at [facility];888 | K/uL | LAB | | | | [address];[place] | | | | | | [address] | | | | + + + + + -+ | Absolute | 1.39 (H)Comment: Testing | 0.00 - 0.80 | EXTERNAL | | | Monocytes | performed at [facility];888 | K/uL | LAB | | | | [address];[place] | | | | | | [address] | | | | + + + + + -+ | Absolute | 0.01Comment: Testing | 0.00 - 0.50 | EXTERNAL | | | Eosinophils | performed at [facility];888 | K/uL | LAB | | | | [address];[place] | | | | | | [address] | | | | + + + + + -+ | Absolute | 0.05Comment: Testing | 0.00 - 0.10 | EXTERNAL | | | Basophils | performed at [facility];888 | K/uL | LAB | | | | [address];[place] | | | | | | [address] | | | | + + + + + -+ | Na | 139Comment: Testing | 135 - 143 | EXTERNAL | | | | performed at [facility];888 | mmol/L | LAB | | | | [address];[place] | | | | | | [address] | | | | + + + + + -+ | K | 3.6Comment: Testing | 3.5 - 4.9 | EXTERNAL | | | | performed at [facility];888 | mmol/L | LAB | | | | [address];[place] | | | | | | [address] | | | | + + + + + -+ | Cl | 104Comment: Testing | 99 - 109 mmol/L | EXTERNAL | | | | performed at [facility];[address] | | LAB | | | | [address];[place] | | | | | | [address] | | | | + + + + + -+ | CO2 | 12 (LL)Comment: CALLED | 23 - 32 mmol/L | EXTERNAL | | | | RESULTSREAD BACK RESULTS | | LAB | | | | ABIGAIL/DAMIAN AGUIRRE | | | | | | AT 1824 BY SALTesting | | | | | | performed at [facility];[address] | | | | | | [address];[place] | | | | | | [address] | | | | + + + + + -+ | Anion Gap | 26 (H)Comment: Testing | 5 - 20 mmol/L | EXTERNAL | | | | performed at [facility];[address] | | LAB | | | | [address];[place] | | | | | | [address] | | | | + + + + + -+ | Glucose, | 229 (H)Comment: Testing | 65 - 99 mg/dL | EXTERNAL | | | Fasting | performed at [facility];[address] | | LAB | | | | [address];[place] | | | | | | [address] | | | | + + + + + -+ | BUN | 22Comment: Testing | 8 - 25 mg/dL | EXTERNAL | | | | performed at [facility];[address] | | LAB | | | | [address];[place] | | | | | | [address] | | | | + + + + + -+ | Creatinine | 1.07 (H)Comment: Testing | 0.50 - 1.00 | EXTERNAL | | | | performed at [facility];888 | mg/dL | LAB | | | | [address];[place] | | | | | | [address] | | | | + + + + + -+ | BUN/Creatin | 21Comment: Testing | | EXTERNAL | | | ine Ratio | performed at [facility];[address] | | LAB | | | | [address];[place] | | | | | | [address] | | | | + + + + + -+ | Calcium | 10.8 (H)Comment: Testing | 8.5 - 10.5 | EXTERNAL | | | | performed at [facility];888 | mg/dL | LAB | | | | [address];[place] | | | | | | [address] | | | | + + + + + -+ | Protein, | 8.5 (H)Comment: Testing | 6.3 - 8.2 g/dL | EXTERNAL | | | Total | performed at [facility];[address] | | LAB | | | | [address];[place] | | | | | | [address] | | | | + + + + + -+ | Albumin | 3.5 (L)Comment: Testing | 3.6 - 5.0 g/dL | EXTERNAL | | | | performed at [facility];[address] | | LAB | | | | [address];[place] | | | | | | [address] | | | | + + + + + -+ | Globulin | 5.0 (H)Comment: Testing | 1.3 - 4.9 g/dL | EXTERNAL | | | | performed at [facility];[address] | | LAB | | | | [address];[place] | | | | | | [address] | | | | + + + + + -+ | A/G Ratio | 0.7 (L)Comment: Testing | 1.0 - 2.4 | EXTERNAL | | | | performed at [facility];[address] | | LAB | | | | [address];[place] | | | | | | [address] | | | | + + + + + -+ | Bilirubin | 0.5Comment: Testing | 0.1 - 1.5 mg/dL | EXTERNAL | | | Total | performed at [facility];[address] | | LAB | | | | [address];[place] | | | | | | [address] | | | | + + + + + -+ | ALP, | 99Comment: Testing | 35 - 115 U/L | EXTERNAL | | | External | performed at [facility];[address] | | LAB | | | | [address];[place] | | | | | | [address] | | | | + + + + + -+ | AST | 55 (H)Comment: Testing | 10 - 45 U/L | EXTERNAL | | | | performed at [facility];[address] | | LAB | | | | [address];[place] | | | | | | [address] | | | | + + + + + -+ | ALT | 81 (H)Comment: Testing | 10 - 65 U/L | EXTERNAL | | | | performed at [facility];[address] | | LAB | | | | [address];[place] | | | | | | [address] | | | | + + + + + -+ | Estimated | 59 (L)Comment: GFR <60: | mL/min/1.73m2 | EXTERNAL | | | GFR | CHRONIC KIDNEY DISEASE, | | LAB | | | | IF FOUND OVER A 3 MONTH | | | | | | PERIOD.GFR <15: KIDNEY | | | | | | FAILURE.FOR | | | | | | AMERICANS, MULTIPLY THE | | | | | | CALCULATED GFR BY | | | | | | 1.210.Testing performed | | | | | | at [facility];[address] | | | | | | [address];[place] [address] | | | | + + + + + -+ | CK, Total | 259 (H)Comment: Testing | 30 - 240 U/L | EXTERNAL | | | | performed at [facility];[address] | | LAB | | | | [address];[place] | | | | | | [address] | | | | + + + + + -+ | INR | 1.3Comment: REFERENCE | | EXTERNAL | | | | RANGE:0.9 - 1.2 | | LAB | | | | NON-ANTICOAGULATED2.0 | | [...] | | | | | performed at [facility];[address] | | | | | | [address];[place] | | | | | | [address] | | | | + + + + + -+ | aPTT, | 33 (H)Comment: Testing | 23 - 32 seconds | EXTERNAL | | | Patient | performed at [facility];[address] | | LAB | | | | [address];[place] | | | | | | [address] | | | | + + + + + -+ | CK-MB | 11.4 (H)Comment: Testing | 0.5 - 3.6 ng/mL | EXTERNAL | | | | performed at [facility];[address] | | LAB | | | | [address];[place] | | | | | | [address] | | | | + + + + + -+ | CK-MB Index | 4.4Comment: CK INDEX | | EXTERNAL | | | | INTERPRETATION: | | LAB | | | | MMB ng/mL | | | | | | | | | | | |CK INDEX INTERPRETATION: | | | | | | MMB ng/mL | | | | | | | | | | + + + + + -+ + + | Specimen | + + | | + + + +---------+ + + | Performing | Address | City/State/Zipcode | Phone Number | | Organization | | | | + +---------+ + + | EXTERNAL LAB | | | | + +---------+ + + Phosphorus (09/05/2014 5:40 PM PDT) + + + + + + | Component | Value | Ref Range | Performed | Pathologist | | | | | At | Signature | + + + + + + | PHOSPHORUS | 1.8 (L)Comment: Testing | 2.3 - 4.8 mg/dL | EXTERNAL | | | | performed at [facility] | | LAB | | | | [address];[place], [place] | | | | | | [address] | | | | + + + + + + + + | Specimen | + + | | + + + +---------+ + + | Performing | Address | City/State/Zipcode | Phone Number | | Organization | | | | + +---------+ + + | EXTERNAL LAB | | | | + +---------+ + + Magnesium (09/05/2014 5:40 PM PDT) + + + + + + | Component | Value | Ref Range | Performed | Pathologist | | | | | At | Signature | + + + + + + | Magnesium | 1.4 (L)Comment: Testing | 1.7 - 2.4 mg/dL | EXTERNAL | | | | performed at [facility];[address] | | LAB | | | | [address];[place] | | | | | | [address] | | | | + + + + + + + + | Specimen | + + | | + + + +---------+ + + | Performing | Address | City/State/Zipcode | Phone Number | | Organization | | | | + +---------+ + + | EXTERNAL LAB | | | | + +---------+ + + Lactic Acid (09/05/2014 5:40 PM PDT) + + + + + + | Component | Value | Ref Range | Performed | Pathologist | | | | | At | Signature | + + + + + + | Lactate | 2.0Comment: Testing | 0.4 - 2.0 | EXTERNAL | | | | performed at [facility];888 | mmol/L | LAB | | | | [address];[place], [place] | | | | | | [address] | | | | + + + + + + + + | Specimen | + + | Blood specimen | | (specimen) | + + + +---------+ + + | Performing | Address | City/State/Zipcode | Phone Number | | Organization | | | | + +---------+ + + | EXTERNAL LAB | | | | + +---------+ + + Salicylate Level (09/05/2014 5:40 PM PDT) + + + + + + | Component | Value | Ref Range | Performed | Pathologist | | | | | At | Signature | + + + + + + | Salicylate | 4.2Comment: Testing | 2.8 - 20.0 | EXTERNAL | | | Lvl | performed at [facility];888 | mg/dL | LAB | | | | [address];[place], [place] | | | | | | [address] | | | | + + + + + + + + | Specimen | + + | | + + + +---------+ + + | Performing | Address | City/State/Zipcode | Phone Number | | Organization | | | | + +---------+ + + | EXTERNAL LAB | | | | + +---------+ + + CT Head wo Contrast (09/04/2014 10:35 PM PDT) + + | Specimen | + + | | + + + + + | Narrative | Performed At | + + + | This is a non-reportable procedure without a radiologist report and | | | is used for image storage only | | + + + + + | Procedure Note | + + | Jose Hanks - 12/02/2018 4:36 AM PDT This is a non-reportable procedure | | without a radiologist report and isused for image storage only | + + XR Chest 1 Vw (09/04/2014 10:34 PM PDT) + + | Specimen | + + | | + + + + + | Narrative | Performed At | + + + | This is a non-reportable procedure without a radiologist report and | | | is used for image storage only | | + + + + + | Procedure Note | + + | Jose Hanks Conversion - 12/02/2018 4:36 AM PDT This is a non-reportable procedure | | without a radiologist report and isused for image storage only | + + documented in this encounter Visit Diagnoses + + | Diagnosis | + + | Metabolic alkalosis Alkalosis | + + | Diabetes mellitus, type 2 (HCC) Type II or unspecified type diabetes mellitus without | | mention of complication, not stated as uncontrolled | + + | Drug overdose, sequela | + + | Hypokalemia Hypopotassemia | + + | Hypophosphatemia Disorders of phosphorus metabolism | + + | Metabolic encephalopathy | + + | Methamphetamine abuse (HCC) Nondependent amphetamine or related acting | | sympathomimetic abuse, unspecified | + + | Obesity (BMI 30.0-34.9) Obesity, unspecified | + + | RA (rheumatoid arthritis) (HCC) Rheumatoid arthritis | + + | Sinus tachycardia Other specified cardiac dysrhythmias | + + | Seizure (HCC) Other convulsions | + + | Acute respiratory alkalosis Alkalosis | + + | Metabolic acidosis Acidosis | + + | Acute respiratory failure (HCC) Acute respiratory failure | + + | Hypoxia Hypoxemia | + + | Obtundation Other alteration of consciousness | + + | Bipolar 2 disorder (HCC) Other bipolar disorders | + + | Current smoker Tobacco use disorder | + + documented in this encounter
--- OUTSIDE RECORDS SUMMARY | ~2019-04-18 | XMS | Encounter Summary ---
Demographics + + + | Address | [address] | | | [place] [address] | + + + | Home Phone [...] + + + | Author | [facility] | | | and [place] | + + + | Organization | [facility] | | | [...] | | | | | [place] [address] | | + + + + + | Robson Min | ECON | Unknown | | + + + + + | Isabella Whitehead | ECON | Unknown | | + + + + + Care Team Providers + +------+ + | Care Air Drier Name | Role | Phone | [...] | | | | | | | [facility] [place] | [place], [place] | | | | | | [address] | [address] | | | | | | Phone: | Phone: | | | | | | [phone] | [phone] | | | | | | Fax: | Fax: | | | | | | [phone] | [phone] | +--------+--------+ + + + + Encounter Details +--------+ + + + + | Date | Type | Department | Care Team | Description | +--------+ + + + + | 01/19/ | Procedure | [facility] | Laine Batista DO | Dizziness; | | 2018 | visit | CARDIOLOGY [facility] | [address] | Heart palpitations | | | | [address] | [address] [place], [place] | | | | | WAY [place] [address] | [address] | | | | | [place] | | | | | | [address] | | | | | | [phone] | | | +--------+ + + + [...] of this encounter Progress Notes Beth Tamayo, [employer] Business Representative - 01/19/2019 3:30 PM PDT2 week cardiac event monitor placed on patient. EOB/Billing information discussed. Instructions given and understood. P atient instructed to call [employer] for any billing or monitor questions. JDW:JEWELRY MODEL MAKER-AAMA. [facility] umented in this encounter Plan of Treatment [...] [place] | | | | | | [address] | | | | | | | | +--------+---------+ + + + | 07/26/ | Office | Pulmonology | Navdeep Grande, | | | 2019 | Visit | | MD Cely GORE | | | | | | [place] | | | | | | [address] | | | | | | | | +--------+---------+ + + + documented as of this encounter Visit Diagnoses + + | Diagnosis | + + | Dizziness Dizziness and giddiness | + + | Heart palpitations Palpitations | + + documented in this encounter"
--- OUTSIDE RECORDS SUMMARY | ~2019-04-18 | XMS | Encounter Summary ---
Demographics + + + | Address | [address] | | | [place] [address] | + + + | Home Phone [...] + + + | Author | [facility] | | | and [place] | + + + | Organization | [facility] | | [...] | | | | | [place] [address] | | + + + + + | Robson Min | ECON | Unknown | | + + + + + | Isabella Whitehead | ECON | Unknown | | + + + + + Care Team Providers + +------+ + | Care Oil Transport Driver Name | Role | Phone | [...] | | | Pulmonology | (chronic | [address] | [address] | | | | | obstructive | [address] | [place], | | | | | pulmonary | [place] | [place] [address] | | | | | disease) | [address]106 | Phone: | | | | | ([facility]) | [place] | [phone] | | | | | Procedures | [address] | Fax: | | | | | F/[address] | Phone: | [phone] | | | | | [address] | [phone] | | | | | | 11/19/17 | Fax: | | | | | | | [phone] | | +--------+--------+ + + + + Encounter Details +--------+---------+ + + + | Date | Type | Department | Care Team | Description | +--------+---------+ + + + | 11/19/ | Office | [facility] | Navdeep Grande, | Hypoxemia (Primary | | 2018 | Visit | PULMONARY [address] | MD [address] | Dx); Tobacco use | | | | [place], | [place] | disorder; COPD, mild | | | | [place] [address] | [address] | ([facility]); Alveolar | | | | [phone] | | hypoventilation | +--------+---------+ + + [...] instructions provided by your healthcare provider or [employer]. Check the oxygen supply level on the [...] if you have one. Date Last Reviewed: 08/18/201519996040-6669 [employer]. [address] [place] [address], [place] [address]. All righ ts reserved. This information is not intended as a substitute for professional medical care. Always follow your healthcare professional's instructions. documented in this encounter Progress Notes Navdeep Grande MD - 11/19/2017 11:30 AM PDTFormatting of this note might be different f rom the original. Pulmonary Follow Up 11/19/2017 HPI Kait Min is a 47 y.o. female patient of Bart Ba, DO here today for follow up o [...] 50,000 Units by mouth Once a w [place]., Disp: , Rfl: fluticasone-salmeterol (ADVAIR DISKUS) 250-50 [...] patient. The Chest CT(s) was performed at [facility]. No evidence of pulmonary emboli. A [...] [place] | | | | | | [address] | | | | | | | | +--------+---------+ + + + | 07/26/ | Office | Pulmonology | Navdeep Grande, | | | 2019 | Visit | | MD [address] | | | | | | [place] | | | | | | [address] | | | | | | | [...]
--- OUTSIDE RECORDS SUMMARY | ~2019-04-18 | XMS | Encounter Summary ---
Demographics + + + | Address | [address] | | | [place] [address] | + + + | Home Phone | | + + + | Preferred Language | Unknown | + + + | Marital Status | Single | + + + | Rastafari Affiliation | CHR | + + + [...] | | | | | [place] [address] | | + + + + + Care Team Providers + +------+ + | Care Ui Software Developer Name | Role | Phone | + +------+ + PCP | Unavailable | + +------+ + Encounter Details +--------+ + + + + | Date | Type | Department | Care Team | Description | +--------+ + + + + | 10/31/ | Respiratory | | Other, Faculty | | | 2006 | Therapy | | [phone] | | +--------+ + + + + [...] Hackett, | | | | | | INSURANCE HEALTHCARE REPRESENTATIVE | | | | + + + [...] [facility] | [address] | [facility] [place] | | | DIAGNOSTICS - | [place] | [phone] | | | PULMONARY FUNCTION | | | | + + + + + documented in this encounter Visit Diagnoses Not on filedocumented in this encounter"
--- OUTSIDE RECORDS SUMMARY | ~2019-04-18 | XMS | Encounter Summary ---
Demographics + + + | Address | [address] | | | [place] [address] | + + + | Home Phone [...] | | | | | [place] [address] | | + + + + + Care Team Providers + +------+ + | Care Camelid Fiber Sorter Name | Role | Phone | + [...] as of this encounter Progress Notes Interface, Weight Control Lecturer In - 02/18/2006 3:06 AM PSTCLINIC DATE: 06/10/2000 RHEUMATOLOGY CLINIC HISTORY OF PRESENT ILLNESS: Ms. Kait Min is a 30-year-old female with a diagnosis of rheumatoid arthritis. She has been followed in the Rheumatology Clinic at [facility] by Dr. Ameya Steen in the past. [...] [place] by her primary care doctor in [place] with the guidance of Dr. Steen. She [...] her fingers bilaterally. 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 She has bilateral synovial cysts on [...] address. Dorene Waite M.D. Deyvi Lainez M.D. [facility] / [place] [id number] / [id number] / [id number] / [id number] signed by Interface, Weight Control Lecturer In at 02/18/2006 3:06 AM PSTdocume nted in this encounter Plan of Treatment Not on filedocumented as of this encounter Visit Diagnoses Not on filedocumented in this encounter"
--- OUTSIDE RECORDS SUMMARY | ~2019-04-18 | XMS | Encounter Summary ---
Demographics + + + | Address | [address] | | | [place] [address] | + + + | Home Phone [...] | | | | | [place] [address] | | + + + + + Care Team Providers + +------+ + | Care Medical Support Specialist Name | Role | Phone | [...] as of this encounter Progress Notes Interface, Home Care Specialist In - 03/06/2006 5:10 AM [facility] [place] [facility] [place], [place] [address] or September 23, 1999 Renan Bright MD [address] [place] [address] RE: CARLINE MIN MR #: [id number] Dear Dr. Bright: I saw your patient, [...] more and will be interviewed by our laboratory operations coordinator. We will obtain some x-rays and labs to further screen her for candidacy. PLAN 1. The patient to meet with laboratory operations coordinator today regarding IL-1 RA study. 2. Labs today to include CBC, liver function tests, C-reactive protein and erythrocyte sedimentation rate. 3. X-rays of the hands today. 4. 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 I would appreciate it if those results could be faxed to me at this clinic: [phone]. 5. She will be made a follow-up appointment either with me or as part of the above-mentioned study. Again, thank you for allowing me to participate in this Ms. Min's care and please call if you wish to discuss her case further. Sincerely, Ameya Steen M.D. Rheumatology Fellow [facility] / PHIL [id number] / [id number] / [id number] / [id number] signed by Interface, Home Care Specialist In at 03/06/2006 5:10 AM PSTdocume nted in this encounter Plan of Treatment Not on filedocumented as of this encounter Visit Diagnoses Not on filedocumented in this encounter"
--- OUTSIDE RECORDS SUMMARY | ~2019-04-18 | XMS | Encounter Summary ---
Demographics + + + | Address | [address] | | | [place] [address] | + + + | Home Phone [...] | | | | | [place] [address] | | + + + + + | Robson Min | ECON | Unknown | | + + + + + | Isabella Whitehead | ECON | Unknown | | + + + + + Care Team Providers + +------+ + | Care Sound Engineering Technician Name | Role | Phone | + +------+ + | Ora Slater | PCP | | + +------+ + Encounter Details +--------+ + + + + | Date | Type | Department | Care Team | Description | +--------+ + + + + | 09/22/ | Hospital | [facility] | Neno Walker | Hypoventilation | | 2019 | Encounter | [facility] P[facility] | MD Srinivas [address] | | | | | FUNCTION [address] [place] | | | | | [place], | [place] [address] | | | | | [place] [address] | [phone] | | | | | [phone] | | | +--------+ + + + [...] puffs into | 1 | 11 | /02/05 | | | HFA) 90 mcg/puff | [...] + + + +---------+ + + | [facility] | Inject 20 Units | | 0 [...] [place] | | | | | | [address] | | | | | | | | +--------+---------+ + + + | 07/26/ | Office | Pulmonology | Navdeep Grande, | | | 2019 | Visit | | MD [address] | | | | | | [place] | | | | | | [address] | | | | | | | | +--------+---------+ + + + documented as of this encounter Procedures + +--------+ + + + | Procedure Name | Priori | Date/Time | Associated Diagnosis | Comments | | | ty | | | | + +--------+ + + + | BLOOD GAS, ARTERIAL | Routin | 09/22/2018 | | Results for this | | | e | 10:02 AM | | procedure are in the | | | | PDT | | results section. | + +--------+ + + + | PFT PULMONARY | LARS | 09/22/2018 | Hypoventilation | | | FUNCTION TESTING | | 8:36 AM | | | | ORDERS | | PDT | | | + +--------+ + + + documented in this encounter Results Blood Gas, Arterial (09/22/2018 10:02 AM PDT) + + + + + + | Component | Value | Ref Range | Performed | Pathologist | | | | | At | Signature | + + + + + + | pH, | 7.42 | 7.35 - 7.45 | [facility] | | | Arterial | | | [facility] | | | | | [facility] | | | | | [facility] - | | | | | | LABORATORY | | + + + + + + | pCO2, | 41 | 35 - 45 mm Hg | [facility] | | | Arterial | | | [facility] | | | | | | [facility] | | | | | | [facility] - | | | | | | LABORATORY | | + + + + + + | pO2, | 146 | >=60 mm Hg | [facility] | | | Arterial | | | [facility] | | | | | | [facility] | | | | | | [facility] - | | | | | | LABORATORY | | + + + + + + | HCO3, | 25.7 (H) | 18.0 - 23.0 | [facility] | | | Arterial | | mmol/L | [facility] | | | | | | [facility] | | | | | | [facility] - | | | | | | LABORATORY | | + + + + + + | Base | 1.6 | -2.0 - 2.0 | [facility] | | | Excess, | | mmol/L | [facility] | | | Arterial | | | MEDICAL | | | | | | CENTER - | | | | | | LABORATORY | | + + + + + + | O2 | 98 | 95 - 98 % | [facility] | | | Saturation, | | | [facility] | | | Arterial | | | MEDICAL | | | | | | CENTER - | | | | | | LABORATORY | | + + + + + + | Hemoglobin, | 10.4 (L) | 12.0 - 16.0 | [facility] | | | Arterial | | g/dL | [facility] | | | | | | [facility] | | | | | | [facility] - | | | | | | LABORATORY | | + + + + + + | Oxyhemoglob | 88.4 (L) | 90.0 - 100.0 % | [facility] | | | in, | | | [facility] | | | Arterial | | | MEDICAL | | | | | | CENTER - | | | | | | LABORATORY | | + + + + + + | Methemoglob | 2.5 (H) | 0.0 - 1.5 % | [facility] | | | in, | | | [facility] | | | Arterial | | | MEDICAL | | | | | | CENTER - | | | | | | LABORATORY | | + + + + + + | Carboxyhemo | 6.8 (HH) | 0.0 - 1.5 % | [facility] | | | globin, | | | [facility] | | | Arterial | | | MEDICAL | | | | | | CENTER - | | | | | | LABORATORY | | + + + + + + | FiO2 | 21.0 | % | [facility] | | | | | | [facility] | | | | | | [facility] | | | | | | [facility] - | | | | | | LABORATORY | | + + + + + + | FiO2 | 25.0 | % | [facility] | | | | | | [facility] | | | | | [facility] | | | | | | [facility] - | | | | | | LABORATORY | | + + + + + + | L/min of O2 | 1.0 | L/min | [facility] | | | | | | [facility] | | | | | | [facility] | | | | | | [facility] - | | | | | | LABORATORY | | + + + + + + | pH Temp | 7.42 | | [facility] | | | Corrected, | | | [facility] | | | Arterial | | | MEDICAL | | | | | | CENTER - | | | | | | LABORATORY | | + + + + + + | pCO2 Temp | 41 | mm Hg | [facility] | | | Corrected, | | | [facility] | | | Arterial | | | MEDICAL | | | | | | CENTER - | | | | | | LABORATORY | | + + + + + + | pO2 Temp | 146 | mm Hg | [facility] | | | Corrected, | | | [facility] | | | Arterial | | | MEDICAL | | | | | | CENTER - | | | | | | LABORATORY | | + + + + + + | PATIENT | 37.0 | | [facility] | | | TEMP | | | [facility] | | | | | | [facility] | | | | | | [facility] - | | | | | | LABORATORY | | + + + + + + + + | Specimen | + + | Blood | + + + + + | Narrative | Performed At | + + + | | | + + + + + + + + | Performing | Address | City/State/Zipcode | Phone Number | | Organization | | | | + + + + + | [facility] | [address] | [place] | [phone] | | [facility] | | [address] | | | - LABORATORY | | | | + + + + + documented in this encounter Visit Diagnoses + + | Diagnosis | + + | Hypoventilation Other dyspnea and respiratory abnormality | + + documented in this encounter"
--- OUTSIDE RECORDS SUMMARY | ~2019-04-18 | XMS | Encounter Summary ---
Demographics + + + | Address | [address] | | | [place] [address] | + + + | Home Phone | | + + + | Preferred Language | Unknown | + + + | Marital Status | Single | + + + | Buddhist Affiliation | Unknown | + + + [...] | | | | | [place] [address] | | + + + + + | Robson Min | ECON | Unknown | | + + + + + | Isabella Whitehead | ECON | Unknown | | + + + + + Care Team Providers + +------+ + | Care Groundwater Monitoring Technician Name | Role | Phone | [...] | | | | | | kidney ([facility]) | | | | | | | [...] 2019 | Visit | HOSPITAL NEUROLOGY | Theo, OCCUPATIONAL HEALTH NURSE SUPERVISOR [address] | disorientation | | | | CLINIC [address] | [address] [facility], | | | | | [address] [place], | [place] [address] | | | | | [place] [address] | [phone] | | | | | [phone] | | | +--------+---------+ + + + [...] confused, disor iented, swollen eye lids. Notified DANA Venegas, and ambulance called. Pt was put on 3 L Oxy gen per DANA Venegas, O2 sats increased to 91 %. Ambulance did CBG, stated it was 260. Pt t ransported to [facility]MARTHA Zacarias documented in thi s encounter Plan [...] [place] | | | | | | [address] | | | | | | | | +--------+---------+ + + + | 07/26/ | Office | Pulmonology | Navdeep Grande, | | | 2019 | Visit | | MD Cely [address]ORE | | | | | | [place] | | | | | | [address] | | | | | | | | +--------+---------+ + + + documented as of this encounter Visit Diagnoses + + | Diagnosis | + + | Confusion and disorientation | + + documented in this encounter"
--- OUTSIDE RECORDS SUMMARY | ~2019-04-18 | XMS | Encounter Summary ---
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 intubated, sedated. Increased agitation yesterday evening. She required increased doses of propofol overnight. Objective: Most recent vital signs: BP (!) 202/103 | Pulse 80 | Temp 36.2 C (97.2 F) (Bladder) | Resp 20 | Ht 1.626 m ( 5' 4.02") | Wt 105.5 kg (232 lb 9.4 oz) | SpO2 96% | ? No | BMI 39.90 kg/m Vital sign ranges for last 24hrs: Input and output for last 24hrs: Temp: [36.2 C (97.2 F)-37.4 C (99.32 F)] 36.2 C (97.2 F) Pulse: [69-92] 80 Resp: [14-29] 20 BP: (144-202)/(69-146) 202/103 SpO2 Av.1 % Min: 90 % Max: 100 % 08/15 1901 - 08/17 0700 In: 5365.3 [I.V.:5031.2] Out: 4950 [Urine:3655] Physical Examination: General: Intubated, sedated. Cardiovascular: Regular rate and rhythm. Respiratory: Coarse crackles in all lung higgins. Abdomen: Bowel sounds hypoactive. Abdomen soft, nondistended nontender. Extremities: No cyanosis clubbing or edema. Neurological: Intubated, sedated. Psychiatric: Unable to assess secondary to patient's intubated status. Physical Exam Last 8 glucose values: Recent Labs Lab 08/17/18 0621 08/17/18 0510 08/16/18 2357 08/16/18 1806 08/16/18 1205 08/16/18 0623 08/16/18 0517 08/16/18 0012 08/15/18 1633 08/15/18 1429 08/15/18 0839 POCGLU 172* -- 181* 211* 234* 221* -- 156* 119* 129* -- GLU -- 201* -- -- -- -- 228* -- -- -- 209* Labs/Studies: Recent Labs Lab 08/17/18 0510 08/16/18 0517 08/15/18 0839 WBC 3.2* 2.5* 3.7* HGB 9.9* 9.5* 9.9* HCT 30.8* 29.9* 31.9* PLT 228 225 232 Recent Labs Lab 08/17/18 0510 08/16/18 0517 08/15/18 0839 NA 140 140 138 K 4.2 4.5 4.9 CL 104 104 101 CO2 28 24 31 BUN 12 15 29* CREA 0.63 0.84 1.20 GLU 201* 228* 209* MG 1.5* 1.5* -- CALCIUM 9.2 8.8 8.8 PHOS 3.9 -- -- BILITOT 0.4 -- 0.3 AST 12 -- 11 ALT 14 -- 14 ALKPHOS 82 -- 90 ALBUMIN 3.1 -- 3.1 Pertinent micro results: Blood cultures ( 2) show no growth to date. Xr Chest Pa Or Ap Result Date: 08/15/2018 EXAMINATION: XR CHEST PA OR AP HISTORY: Intubation and OG placement COMPARISON STUDY: August 15, 2018 FINDINGS: The lungs are mildly hypoventilated. Patchy airspace opacities are rede monstrated bilaterally. There has been interval placement of endotracheal tube. Tip termin ates 3.9 cm above the tom. Esophagogastric tube is within the stomach. No pleural effus ion. No pneumothorax. Heart size is stable. No acute osseous process. IMPRESSION: Appropriate positioning of endotracheal and esophagogastric tube. Dictated by: Santana Walker Xr Chest Ap Portable Result Date: 08/16/2018 EXAMINATION: XR CHEST AP PORTABLE HISTORY: Mechanical ventilation COMPARISON STUDY: July 192018 FINDINGS: The lungs are mildly hypoventilated. Persistent bibasilar airspace opacit ies are noted. The endotracheal tube and esophagogastric tube are appropriately positioned. No pleural effusion. No pneumothorax. Cardiomediastinal silhouette is normal. No acute osseous process. IMPRESSION: Bilateral pneumonia, unchanged Stable position of support tubes. Dictated by: Thong Walker Medications reviewed: Medications have been reviewed by me. Electronically signed by: Dashawn Nettles 08/17/2018 8:50 CC [facility] Portions of this chart may have been created with voice recognition software. Occasional wo rd or "sound-alike" substitutions may have occurred due to the inherent limitation of voice recognition software. Read the chart carefully and recognize, using context, where these sub stitutions have occurred. Juan Oro RRT - 08/16/2018 10:56 PM PDTUnable to fully assess far right side of RML and RLL at this time due to Pt position; RT to continue to monitor and assess. Center RML and RLL remain co arse and diminished Maryana Guillen PharmD - 08/16/2018 12:13 PM PDTMedication History Completed Medication history was completed using: -medication list faxed from [facility] Major discrepancies noted: patient was not coherent enough to obtain an accurate medication list from her at the time of admission and subsequently has ended up intubated. Obtained a medication fill history of [place] and updated the medication from the most recent fill his tory. Patient is currently up to date on her pneumococcal vaccine. PPSV23: 04/04/09, 03/19/13, 01/10/15 PCV13: 03/19/13, 04/24/14 Please see [facility] med list for updated medication list. Electronically Signed by: Maryana Denise PharmD 08/16/2018 12:13 Dashawn Guevara MD - 08/16/2018 8:24 AM PDT . MEDICAL HOSPITALIST TEAM PROGRESS NOTE Name:Kait Min Hospital Day # 1 Reason for admission and continued stay: Kait Min is a 48 y.o. female hospitalized for Pneumonia Assessment and Plan: Principal Problem: Pneumonia Active Problems: Acute respiratory failure COPD exacerbation Hypertension Type II diabetes mellitus #1 acute on chronic respiratory failure. #1.1 community-acquired pneumonia. #1.2 COPD exacerbation. Continue IV ceftriaxone. Stop vancomycin. Follow cultures. Ventilator management per AICU. #2 hypertension. Replace clonidine patch. Follow. #3 type II diabetes mellitus. Start sliding scale insulin. Plan to restart her usual diabetic regimen after the patient is extubated and taking by karen th. #4 anticipated days until discharge and disposition: Greater than 48 hours. Subjective/ROS: Remains intubated, sedated. Objective: Most recent vital signs: BP (!) 182/119 | Pulse 92 | Temp 37.3 C (99.1 F) (Bladder) | Resp 24 | Ht 1.626 m ( 5' 4.02") | Wt 106.5 kg (234 lb 12.6 oz) | SpO2 100% | ? No | BMI 40.28 kg/ m Vital sign ranges for last 24hrs: Input and output for last 24hrs: Temp: [35.9 C (96.6 F)-37.6 C (99.7 F)] 37.3 C (99.1 F) Pulse: [62-100] 92 Resp: [10-39] 24 BP: (85-213)/(64-123) 182/119 SpO2 Av % Min: 75 % Max: 100 % Flow (L/min) Av.3 Min: 6 Max: 50 08/14 1901 - 08/16 0700 In: 3186 [I.V.:1985] Out: 3260 [Urine:2730] Physical Examination: General: Intubated, sedated. Comfortable appearing. Cardiovascular: Regular rate and rhythm. Respiratory: Shallow inspirations. No wheezing appreciated. No crackles appreciated. Abdomen: Benign. Extremities: No cyanosis clubbing or edema. Psychiatric: Unable to assess as the patient is sedated. Physical Exam Last 8 glucose values: Recent Labs Lab 08/16/18 0623 08/16/18 0517 08/16/18 0012 08/15/18 1633 08/15/18 1429 08/15/18 0839 POCGLU 221* -- 156* 119* 129* -- GLU -- 228* -- -- -- 209* Labs/Studies: Recent Labs Lab 08/16/18 0517 08/15/18 0839 WBC 2.5* 3.7* HGB 9.5* 9.9* HCT 29.9* 31.9* PLT 225 232 Recent Labs Lab 08/16/18 0517 08/15/18 0839 NA 140 138 K 4.5 4.9 CL 104 101 CO2 24 31 BUN 15 29* CREA 0.84 1.20 GLU 228* 209* MG 1.5* -- CALCIUM 8.8 8.8 BILITOT -- 0.3 AST -- 11 ALT -- 14 ALKPHOS -- 90 ALBUMIN -- 3.1 Pertinent micro results: Blood cultures ( 2) show no growth to date. Xr Chest Pa Or Ap Result Date: 08/15/2018 EXAMINATION: XR CHEST PA OR AP HISTORY: Intubation and OG placement COMPARISON STUDY: August 15, 2018 FINDINGS: The lungs are mildly hypoventilated. Patchy airspace opacities are rede monstrated bilaterally. There has been interval placement of endotracheal tube. Tip termin ates 3.9 cm above the tom. Esophagogastric tube is within the stomach. No pleural effus ion. No pneumothorax. Heart size is stable. No acute osseous process. IMPRESSION: Appropriate positioning of endotracheal and esophagogastric tube. Dictated by: Santana Walker Xr Chest Ap Portable Result Date: 08/15/2018 EXAMINATION: XR CHEST AP PORTABLE HISTORY: ALTERED MENTAL STATUS COMPARISON STUDY: None FIN DINGS: The lungs are mildly hypoventilated. There elevation of the right hemidiaphragm. Pa tchy bilateral airspace opacities. No pleural effusion. No pneumothorax. Heart is enlarge d. No acute osseous process. IMPRESSION: Patchy bilateral airspace opacities likely representing an infectious process. Clinical correlation is recommended. Cardiomegaly. Dictated by: Santana Walker Electronical ly Signed by: Santana Walker on 08/15/2018 8:59 AM Medications reviewed: Medications have been reviewed, and adjusted by me. Electronically signed by: Dashawn Nettles 08/16/2018 8:24 CC [facility] Portions of this chart may have been created with voice recognition software. Occasional wo rd or "sound-alike" substitutions may have occurred due to the inherent limitation of voice recognition software. Read the chart carefully and recognize, using context, where these sub stitutions have occurred. uan Garcia RRT - 08/16/2018 3:22 AM PDTIncreased Sx pressure and was able to remove large amount. Pt appears clear and diminished at this time.Electronically signed by ANGELITA Olmstead 08/16/2018 3:22 AM PDTdocumented in this encounter Plan of Treatment +--------+---------+ + + + | Date | Type | Specialty | Care Team | Description | +--------+---------+ + + + | 06/19/ | Office | Neurology | Jimbo Samayoa MD | | 2019 | Visit | | [address] | | | | | | [place] | | | | | | [id number] | | | | | | | | +--------+---------+ + + + | 07/26/ | Office | Pulmonology | Navdeep Grande, | | | 2020 | Visit | | MD [address] | | | | | | [place] | | | | | | [address] | | | | | | | | +--------+---------+ + + + + +------+--------+ + + | Name | Type | Priori | Associated Diagnoses | Date/Time | | | | ty | | | + +------+--------+ + + | ED INFORMATION | JODY | Routin | | 08/15/2018 8:29 AM | | EXCHANGE | | e | | PDT | + +------+--------+ + + documented as of this encounter Procedures + +--------+ + + + | Procedure Name | Priori | Date/Time | Associated Diagnosis | Comments | | | ty | | | | + +--------+ + + + | ECG - EXTERNAL SCAN | | 08/23/2018 | | Results for this | | | | 12:00 AM | | procedure are in the | | | | PDT | | results section. | + +--------+ + + + | POC GLUCOSE | Routin | 08/19/2018 | | Results for this | | | e | 11:51 AM | | procedure are in the | | | | PDT | | results section. | + +--------+ + + + | POC GLUCOSE | Routin | 08/19/2018 | | Results for this | | | e | 7:36 AM | | procedure are in the | | | | PDT | | results section. | + +--------+ + + + | MAGNESIUM | Routin | 08/19/2018 | | Results for this | | | e | 5:25 AM | | procedure are in the | | | | PDT | | results section. | + +--------+ + + + | POC GLUCOSE | Routin | 08/18/2018 | | Results for this | | | e | 8:20 PM | | procedure are in the | | | | PDT | | results section. | + +--------+ + + + | POC GLUCOSE | Routin | 08/18/2018 | | Results for this | | | e | 4:40 PM | | procedure are in the | | | | PDT | | results section. | + +--------+ + + + | POC GLUCOSE | Routin | 08/18/2018 | | Results for this | | | e | 11:59 AM | | procedure are in the | | | | PDT | | results section. | + +--------+ + + + | POC GLUCOSE | Routin | 08/18/2018 | | Results for this | | | e | 8:10 AM | | procedure are in the | | | | PDT | | results section. | + +--------+ + + + | CBC WITH | Routin | 08/18/2018 | | Results for this | | DIFFERENTIAL | e | 5:10 AM | | procedure are in the | | | | PDT | | results section. | + +--------+ + + + | MAGNESIUM | Routin | 08/18/2018 | | Results for this | | | e | 5:10 AM | | procedure are in the | | | | PDT | | results section. | + +--------+ + + + | BASIC METABOLIC | Routin | 08/18/2018 | | Results for this | | PANEL | e | 5:10 AM | | procedure are in the | | | | PDT | | results section. | + +--------+ + + + | POC GLUCOSE | Routin | 08/17/2018 | | Results for this | | | e | 9:38 PM | | procedure are in the | | | | PDT | | results section. | + +--------+ + + + | POC GLUCOSE | Routin | 08/17/2018 | | Results for this | | | e | 5:00 PM | | procedure are in the | | | | PDT | | results section. | + +--------+ + + + | POC GLUCOSE | Routin | 08/17/2018 | | Results for this | | | e | 11:42 AM | | procedure are in the | | | | PDT | | results section. | + +--------+ + + + | BLOOD GAS, ARTERIAL | Routin | 08/17/2018 | | Results for this | | | e | 10:30 AM | | procedure are in the | | | | PDT | | results section. | + +--------+ + + + | XR CHEST AP PORTABLE | Routin | 08/17/2018 | | Results for this | | | e | 9:37 AM | | procedure are in the | | | | PDT | | results section. | + +--------+ + + + | XR CHEST AP PORTABLE | Routin | 08/17/2018 | | Results for this | | | e | 8:15 AM | | procedure are in the | | | | PDT | | results section. | + +--------+ + + + | POC GLUCOSE | Routin | 08/17/2018 | | Results for this | | | e | 6:21 AM | | procedure are in the | | | | PDT | | results section. | + +--------+ + + + | DIFFERENTIAL, MANUAL | Routin | 08/17/2018 | | Results for this | | | e | 5:10 AM | | procedure are in the | | | | PDT | | results section. | + +--------+ + + + | CBC WITH | Routin | 08/17/2018 | | Results for this | | DIFFERENTIAL | e | 5:10 AM | | procedure are in the | | | | PDT | | results section. | + +--------+ + + + | PHOSPHORUS | Routin | 08/17/2018 | | Results for this | | | e | 5:10 AM | | procedure are in the | | | | PDT | | results section. | + +--------+ + + + | MAGNESIUM | Routin | 08/17/2018 | | Results for this | | | e | 5:10 AM | | procedure are in the | | | | PDT | | results section. | + +--------+ + + + | CALCIUM, IONIZED | Routin | 08/17/2018 | | Results for this | | | e | 5:10 AM | | procedure are in the | | | | PDT | | results section. | + +--------+ + + + | COMPREHENSIVE | Routin | 08/17/2018 | | Results for this | | METABOLIC PANEL | e | 5:10 AM | | procedure are in the | | | | PDT | | results section. | + +--------+ + + + | BLOOD GAS, ARTERIAL | Routin | 08/17/2018 | | Results for this | | | e | 3:53 AM | | procedure are in the | | | | PDT | | results section. | + +--------+ + + + | POC GLUCOSE | Routin | 08/16/2018 | | Results for this | | | e | 11:57 PM | | procedure are in the | | | | PDT | | results section. | + +--------+ + + + | POC GLUCOSE | Routin | 08/16/2018 | | Results for this | | | e | 6:06 PM | | procedure are in the | | | | PDT | | results section. | + +--------+ + + + | ECHO COMPLETE | Routin | 08/16/2018 | | | | | e | 1:41 PM | | | | | | PDT | | | + +--------+ + + + | POC GLUCOSE | Routin | 08/16/2018 | | Results for this | | | e | 12:05 PM | | procedure are in the | | | | PDT | | results section. | + +--------+ + + + | XR CHEST AP PORTABLE | Routin | 08/16/2018 | | Results for this | | | e | 8:10 AM | | procedure are in the | | | | PDT | | results section. | + +--------+ + + + | POC GLUCOSE | Routin | 08/16/2018 | | Results for this | | | e | 6:23 AM | | procedure are in the | | | | PDT | | results section. | + +--------+ + + + | CBC WITH | Routin | 08/16/2018 | | Results for this | | DIFFERENTIAL | e | 5:17 AM | | procedure are in the | | | | PDT | | results section. | + +--------+ + + + | MAGNESIUM | Routin | 08/16/2018 | | Results for this | | | e | 5:17 AM | | procedure are in the | | | | PDT | | results section. | + +--------+ + + + | BASIC METABOLIC | Routin | 08/16/2018 | | Results for this | | PANEL | e | 5:17 AM | | procedure are in the | | | | PDT | | results section. | + +--------+ + + + | BLOOD GAS, ARTERIAL | Routin | 08/16/2018 | | Results for this | | | e | 4:10 AM | | procedure are in the | | | | PDT | | results section. | + +--------+ + + + | POC GLUCOSE | Routin | 08/16/2018 | | Results for this | | | e | 12:12 AM | | procedure are in the | | | | PDT | | results section. | + +--------+ + + + | BLOOD GAS, ARTERIAL | Routin | 08/15/2018 | | Results for this | | | e | 6:32 PM | | procedure are in the | | | | PDT | | results section. | + +--------+ + + + | XR CHEST PA OR AP | STAT | 08/15/2018 | | Results for this | | | | 5:28 PM | | procedure are in the | | | | PDT | | results section. | + +--------+ + + + | POC GLUCOSE | Routin | 08/15/2018 | | Results for this | | | e | 4:33 PM | | procedure are in the | | | | PDT | | results section. | + +--------+ + + + | BLOOD GAS, ARTERIAL | Routin | 08/15/2018 | | Results for this | | | e | 4:10 PM | | procedure are in the | | | | PDT | | results section. | + +--------+ + + + | POC GLUCOSE | Routin | 08/15/2018 | | Results for this | | | e | 2:29 PM | | procedure are in the | | | | PDT | | results section. | + +--------+ + + + | BLOOD GAS, ARTERIAL | STAT | 08/15/2018 | | Results for this | | | | 1:09 PM | | procedure are in the | | | | PDT | | results section. | + +--------+ + + + | BLOOD GAS, ARTERIAL | STAT | 08/15/2018 | | Results for this | | | | 10:51 AM | | procedure are in the | | | | PDT | | results section. | + +--------+ + + + | CULTURE, BLOOD | STAT | 08/15/2018 | | Results for this | | | | 10:51 AM | | procedure are in the | | | | PDT | | results section. | + +--------+ + + + | CULTURE, BLOOD | STAT | 08/15/2018 | | Results for this | | | | 10:27 AM | | procedure are in the | | | | PDT | | results section. | + +--------+ + + + | ECG 12 LEAD | STAT | 08/15/2018 | | Results for this | | | | 8:53 AM | | procedure are in the | | | | PDT | | results section. | + +--------+ + + + | URINALYSIS WITH | STAT | 08/15/2018 | | Results for this | | MICROSCOPIC WITH | | 8:47 AM | | procedure are in the | | CULTURE IF INDICATED | | PDT | | results section. | + +--------+ + + + | DRUGS OF ABUSE, | Add-On | 08/15/2018 | | Results for this | | SCREEN, URINE | | 8:47 AM | | procedure are in the | | | | PDT | | results section. | + +--------+ + + + | XR CHEST AP PORTABLE | STAT | 08/15/2018 | | Results for this | | | | 8:44 AM | | procedure are in the | | | | PDT | | results section. | + +--------+ + + + | BLOOD GAS, VENOUS | STAT | 08/15/2018 | | Results for this | | | | 8:39 AM | | procedure are in the | | | | PDT | | results section. | + +--------+ + + + | TSH, REFLEX FREE T4 | STAT | 08/15/2018 | | Results for this | | | | 8:39 AM | | procedure are in the | | | | PDT | | results section. | + +--------+ + + + | TROPONIN I | STAT | 08/15/2018 | | Results for this | | | | 8:39 AM | | procedure are in the | | | | PDT | | results section. | + +--------+ + + + | KETONES,SERUM | STAT | 08/15/2018 | | Results for this | | | | 8:39 AM | | procedure are in the | | | | PDT | | results section. | + +--------+ + + + | PROTIME INR | STAT | 08/15/2018 | | Results for this | | | | 8:39 AM | | procedure are in the | | | | PDT | | results section. | + +--------+ + + + | CBC WITH | STAT | 08/15/2018 | | Results for this | | DIFFERENTIAL | | 8:39 AM | | procedure are in the | | | | PDT | | results section. | + +--------+ + + + | B TYPE NATRIURETIC | STAT | 08/15/2018 | | Results for this | | PEPTIDE | | 8:39 AM | | procedure are in the | | | | PDT | | results section. | + +--------+ + + + | LACTIC ACID | STAT | 08/15/2018 | | Results for this | | | | 8:39 AM | | procedure are in the | | | | PDT | | results section. | + +--------+ + + + | COMPREHENSIVE | STAT | 08/15/2018 | | Results for this | | METABOLIC PANEL | | 8:39 AM | | procedure are in the | | | | PDT | | results section. | + +--------+ + + + documented in this encounter Results ECG - EXTERNAL SCAN (08/23/2018 12:00 AM PDT) + + + | Narrative | Performed At | + + + | Ordered by an | | | unspecified provider. | | + + + POC Glucose (08/19/2018 11:51 AM PDT) + +---------+ + + + | Component | Value | Ref Range | Performed | Pathologist | | | | | At | Signature | + +---------+ + + + | Glucose, | 180 (H) | 70 - 110 mg/dL | [facility] | | | | | [facility] | | + +---------+ + + + + + | Specimen | + + | Blood | + + + + + + + | Performing | Address | City/State/Zipcode | Phone Number | | Organization | | | | + + + + + | [facility] | [address] | [place] [address] | [phone] | | [facility] | | | | + + + + + POC Glucose (08/19/2018 7:36 AM PDT) + +---------+ + + + | Component | Value | Ref Range | Performed | Pathologist | | | | | At | Signature | + +---------+ + + + | Glucose, | 150 (H) | 70 - 110 mg/dL | [facility] | [facility] | | [facility] | | | [facility] | | + +---------+ + + + + + | Specimen | + + | Blood | + + + + + + + | Performing | Address | City/State/Zipcode | Phone Number | | Organization | | | | + + + + + | [facility] | [address] | [place] [address] | [phone] | | [facility] | | | | + + + + + Magnesium (08/19/2018 5:25 AM PDT) + +---------+ + + + | Component | Value | Ref Range | Performed | Pathologist | | | | | At | Signature | + +---------+ + + + | Magnesium | 1.6 (L) | 1.8 - 2.4 mg/dL | [facility] | [facility] | [facility] | | | | | | [facility] | | + +---------+ + + + + + | Specimen | + + | Blood | + + + + + + + | Performing | Address | City/State/Zipcode | Phone Number | | Organization | | | | + + + + + | [facility] | [address] | [place] [address] | [phone] | | [facility] | | | | + + + + + POC Glucose (08/18/2018 8:20 PM PDT) + +---------+ + + + | Component | Value | Ref Range | Performed | Pathologist | | | | | At | Signature | + +---------+ + + + | Glucose, | 111 (H) | 70 - 110 mg/dL | [facility] | [facility] | | | | | | [facility] | | + +---------+ + + + + + | Specimen | + + | Blood | + + + + + + + | Performing | Address | City/State/Zipcode | Phone Number | | Organization | | | | + + + + + | [facility] | [address] | [place] [address] | [phone] | | [facility] | | | | + + + + + POC Glucose (08/18/2018 4:40 PM PDT) + +---------+ + + + | Component | Value | Ref Range | Performed | Pathologist | | | | | At | Signature | + +---------+ + + + | Glucose, | 286 (H) | 70 - 110 mg/dL | [facility] | [facility] | | | | | | [facility] | | + +---------+ + + + + + | Specimen | + + | Blood | + + + + + + + | Performing | Address | City/State/Zipcode | Phone Number | | Organization | | | | + + + + + | [facility] | [address] | [place] [address] | [phone] | | [facility] | | | | + + + + + POC Glucose (08/18/2018 11:59 AM PDT) + +---------+ + + + | Component | Value | Ref Range | Performed | Pathologist | | | | | At | Signature | + +---------+ + + + | Glucose, | 325 (H) | 70 - 110 mg/dL | [facility] | [facility] | | | | | | [facility] | | + +---------+ + + + + + | Specimen | + + | Blood | + + + + + + + | Performing | Address | City/State/Zipcode | Phone Number | | Organization | | | | + + + + + | [facility] | [address] | [place] [address] | [phone] | | [facility] | | | | + + + + + POC Glucose (08/18/2018 8:10 AM PDT) + +---------+ + + + | Component | Value | Ref Range | Performed | Pathologist | | | | | At | Signature | + +---------+ + + + | Glucose, | 149 (H) | 70 - 110 mg/dL | [facility] | [facility] | | | | | | [facility] | | + +---------+ + + + + + | Specimen | + + | Blood | + + + + + + + | Performing | Address | City/State/Zipcode | Phone Number | | Organization | | | | + + + + + | [facility] | [address] | [place] [address] | [phone] | | [facility] | | | | + + + + + Magnesium (08/18/2018 5:10 AM PDT) + +---------+ + + + | Component | Value | Ref Range | Performed | Pathologist | | | | | At | Signature | + +---------+ + + + | Magnesium | 1.4 (L) | 1.8 - 2.4 mg/dL | [facility] | [facility] | [facility] | | | | | | [facility] | | + +---------+ + + + + + | Specimen | + + | Blood | + + + + + + + | Performing | Address | City/State/Zipcode | Phone Number | | Organization | | | | + + + + + | [facility] | [address] | [place] [address] | [phone] | | [facility] | | | | + + + + + Basic Metabolic Panel (08/18/2018 5:10 AM PDT) + +---------+ + + + | Component | Value | Ref Range | Performed | Pathologist | | | | | At | Signature | + +---------+ + + + | Na | 134 | 132 - 143 | [facility] | | | | | mmol/L | [facility] | | | | | | [facility] | | + +---------+ + + + | K | 3.8 | 3.3 - 4.9 | [facility] | | | | | mmol/L | [facility] | | | | | | [facility] | | + +---------+ + + + | Cl | 100 | 95 - 108 mmol/L | [facility] | | | | [facility] | | + +---------+ + + + | CO2 | 28 | 23 - 34 mmol/L | [facility] | | | | | | [facility] | | + +---------+ + + + | Anion Gap | 6 (L) | 7 - 16 mmol/L | [facility] | | [facility] | [facility] | | | | | | LABORATORY | | + +---------+ + + + | Glucose | 196 (H) | 70 - 110 mg/dL | [facility] | [facility] | | + +---------+ + + + | BUN | 15 | 5 - 26 mg/dL | [facility] | | | | | [facility] | | + +---------+ + + + | Creatinine | 0.69 | 0.60 - 1.30 | [facility] | | | | mg/dL | [facility] | | | | | | [facility] | | + +---------+ + + + | eGFR if not | >60 | >=60 | [facility] | | | | | mL/min/1.73m2 | [facility] | | | | | | [facility] | | + +---------+ + + + | Calcium | 9.1 | 8.3 - 10.0 | [facility] | | | | mg/dL | [facility] | | | | | | [facility] | | + +---------+ + + + | BUN/Creatin | 21.7 | 7.0 - 24.0 | [facility] | | | ine Ratio | | | [facility] | | | | | | [facility] | | + +---------+ + + + + + | Specimen | + + | Blood | + + + + + + + | Performing | Address | City/State/Zipcode | Phone Number | | Organization | | | | + + + + + | [facility] | [address] | [place] [address] | [phone] | | [facility] | | | | + + + + + CBC with Differential (08/18/2018 5:10 AM PDT) + + + + + + | Component | Value | Ref Range | Performed | Pathologist | | | | | At | Signature | + + + + + + | WBC | 4.5 | 4.3 - 10.4 K/uL | [facility] | | | | | [facility] | | + + + + + + | RBC | 3.52 (L) | 4.12 - 5.30 | [facility] | | | | M/uL | [facility] | | | | [facility] | | + + + + + + | Hemoglobin | 10.7 (L) | 12.4 - 15.7 | [facility] | | | | g/dL | [facility] | [facility] | | | [facility] | | + + + + + + | Hematocrit | 32.9 (L) | 37.7 - 47.0 % | [facility] | | | | | [facility] | | + + + + + + | MCV | 93.5 | 82.0 - 97.0 fL | [facility] | | | | | [facility] | | + + + + + + | MCH | 30.4 | 27.1 - 32.3 pg | [facility] | | | | [facility] | | + + + + + + | MCHC | 32.5 | 32.0 - 36.9 | [facility] | | | | g/dL | [facility] | | [facility] | | + + + + + + | RDW-CV | 23.5 (H) | 0.0 - 17.0 % | [facility] | | | [facility] | | + + + + + + | Platelet | 218 | 150 - 450 K/uL | [facility] | | | Count | | | [facility] | | | | | | [facility] | | + + + + + + | MPV | 11.7 | 9.4 - 12.3 fL | [facility] | [facility] | | | | | [facility] | | + + + + + + | % | 62.8 | 42.0 - 76.0 % | [facility] | | | Neutrophils | | | [facility] | | | | | | [facility] | | + + + + + + | % | 18.1 (L) | 20.0 - 40.0 % | [facility] | | | Lymphocytes | | | [facility] | | | | | | [facility] | | + + + + + + | % Monocytes | 17.6 (H) | 3.0 - 13.0 % | [facility] | | | [facility] | | | | | [facility] | | + + + + + + | % | 0.9 | 0.0 - 7.0 % | [facility] | | | Eosinophils | | | [facility] | | | | | | [facility] | | + + + + + + | % Basophils | 0.4 | 0.0 - 2.0 % | [facility] | [facility] | | | | | | [facility] | | + + + + + + | % Immature | 0.2 | 0.0 - 0.5 % | [facility] | | | Granulocyte | | | [facility] | | | | | | [facility] | | + + + + + + | Absolute | 2.85 | 2.50 - 8.50 | [facility] | | | Neutrophils | | K/uL | [facility] | | | | | | [facility] | | + + + + + + | Absolute | 0.82 (L) | 1.00 - 3.80 | [facility] | | | Lymphocytes | | K/uL | [facility] | | | | | [facility] | | + + + + + + | Absolute | 0.80 | 0.00 - 0.80 | [facility] | | | Monocytes | | K/uL | [facility] | | | | | | [facility] | | + + + + + + | Absolute | 0.04 | 0.00 - 0.70 | [facility] | | | Eosinophils | | K/uL | [facility] | | | | | | [facility] | | + + + + + + | Absolute | 0.02 | 0.00 - 0.20 | [facility] | | | Basophils | | K/uL | [facility] | | | | | | [facility] | | + + + + + + | Absolute | 0.01 | 0.00 - 0.15 | [facility] | | | Immature | | K/uL | [facility] | | | Granulocyte | | | [facility] | | | s | | | LABORATORY | | + + + + + + | % nRBC | 0 | <=0 per 100 | [facility] | | | | | WBCs | [facility] | | | | | | [facility] | | + + + + + + | Absolute | 0.02 (H) | 0.00 - 0.01 | [facility] | | | nRBC | | K/uL | [facility] | | | | | | [facility] | | + + + + + + + + | Specimen | + + | Blood | + + + + + + + | Performing | Address | City/State/Zipcode | Phone Number | | Organization | | | | + + + + + | [facility] | [address] | [place] [address] | [phone] | | [facility] | | | | + + + + + POC Glucose (08/17/2018 9:38 PM PDT) + +---------+ + + + | Component | Value | Ref Range | Performed | Pathologist | | | | | At | Signature | + +---------+ + + + | Glucose, | 201 (H) | 70 - 110 mg/dL | [facility] | | POC | | | [facility] | | | | | | [facility] | | + +---------+ + + + + + | Specimen | + + | Blood | + + + + + + + | Performing | Address | City/State/Zipcode | Phone Number | | Organization | | | | + + + + + | [facility] | [address] | [place] [address] | [phone] | | [facility] | | | | + + + + + POC Glucose (08/17/2018 5:00 PM PDT) + +---------+ + + + | Component | Value | Ref Range | Performed | Pathologist | | | | | At | Signature | + +---------+ + + + | Glucose, | 150 (H) | 70 - 110 mg/dL | [facility] | | POC | | | [facility] | | | | | [facility] | | + +---------+ + + + + + | Specimen | + + | Blood | + + + + + + + | Performing | Address | City/State/Zipcode | Phone Number | | Organization | | | | + + + + + | [facility] | [address] | [place] [address] | [phone] | | [facility] | | | | + + + + + POC Glucose (08/17/2018 11:42 AM PDT) + +---------+ + + + | Component | Value | Ref Range | Performed | Pathologist | | | | | At | Signature | + +---------+ + + + | Glucose, | 189 (H) | 70 - 110 mg/dL | [facility] | | POC | | | [facility] | | | | | | [facility] | | + +---------+ + + + + + | Specimen | + + | Blood | + + + + + + + | Performing | Address | City/State/Zipcode | Phone Number | | Organization | | | | + + + + + | [facility] | [address] | [place] [address] | [phone] | | [facility] | | | | + + + + + Blood Gas, Arterial (08/17/2018 10:30 AM PDT) + + + + + + | Component | Value | Ref Range | Performed | Pathologist | | | | | At | Signature | + + + + + + | pH Temp | 7.47 (H) | 7.35 - 7.45 | [facility] | | | Corrected, | | | [facility] | | | Arterial | | [facility] | | | | | | [facility] | | + + + + + + | pCO2 Temp | 37 | 35 - 45 mm Hg | [facility] | | | Corrected, | | | [facility] | | | [facility] | | | | | | [facility] | | + + + + + + | pO2 Temp | 51 (L) | 69 - 116 mm Hg | [facility] | | | Corrected, | | | [facility] | | | [facility] | | | | | | [facility] | | + + + + + + | pH, | 7.48 (H) | 7.35 - 7.45 | [facility] | | Arterial | | | [facility] | | | | | | [facility] | | + + + + + + | pCO2, | 36 | 35 - 45 mm Hg | [facility] | | Arterial | | | [facility] | | | | | | [facility] | | + + + + + + | pO2, | 49 (LL) | 69 - 116 mm Hg | [facility] | | Arterial | | | [facility] | | | | | | [facility] | | + + + + + + | HCO3, | 26.9 | 17.0 - 28.0 | [facility] | | | Arterial | | mmol/L | [facility] | | | | | | [facility] | | + + + + + + | Base | 3.4 (H) | -2.4 - 2.3 | [facility] | | | Excess, | | mmol/L | [facility] | | | Ar[facility] | | [facility] | | | | | | [facility] | | + + + + + + | TCO2, | 28 (H) | 21 - 25 mmol/L | [facility] | | Arterial | | | [facility] | | | | | | [facility] | | + + + + + + | O2 | 85 (L) | 95 - 99 % | [facility] | | | Saturation, | | | [facility] | | [facility] | | | [facility] | | | | | | [facility] | | + + + + + + | FiO2 | 30.0 | % | [facility] | | | | | [facility] | | | | | | [facility] | | + + + + + + | PATIENT | 37.6 | | [facility] | | TEMP | | | [facility] | | | | | | [facility] | | + + + + + + + + | Specimen | + + | Blood | + + + + + + + | Performing | Address | City/State/Zipcode | Phone Number | | Organization | | | | + + + + + | [facility] | [address] | [place] [address] | [phone] | | [facility] | | | | + + + + + XR Chest AP Portable (08/17/2018 9:37 AM PDT) + + | Specimen | + + | | + + + + + | Impressions | Performed At | + + + | IMPRESSION: No significant interval change. Dictated by: Santana | [facility] | | [place] | | | 10:00 AM | | + + + + + + | Narrative | Performed At | + + + | EXAMINATION: XR CHEST AP PORTABLE HISTORY: tube placement | [facility] | | COMPARISON STUDY: August 17, 2017 FINDINGS: The lungs are again | | | noted to have patchy airspace opacities at the bases. Small right | | | pleural effusion is not excluded. No pneumothorax. | | | Cardiomediastinal silhouette is normal. The endotracheal tube tip | | | is 5.5 cm above the tom. The esophagogastric tube is within the | | | stomach. No acute bone process.. | | + + + + + | Procedure Note | + + | Demario, Rad Results In - 08/17/2018 10:04 AM PDT EXAMINATION:XR CHEST AP | | PORTABLEHISTORY:tube placementCOMPARISON STUDY:August 17, 2017FINDINGS:The lungs are again | | noted to have patchy airspace opacities at the bases. Small right pleural effusion is | | not excluded. No pneumothorax. Cardiomediastinal silhouette is normal. The | | endotracheal tube tip is 5.5 cm above the tom. The esophagogastric tube is within | | the stomach. No acute bone process..IMPRESSION: IMPRESSION:No significant interval | | change.Dictated by: Santana Whittakeram | | 10:00 AM | | | |FINDINGS: | |The lungs are again noted to have patchy airspace opacities at the bases. Small right pleu ral effusion is not excluded. No pneumothorax. Cardiomediastinal silhouette is normal. Th e endotracheal tube tip is 5.5 cm above the tom. The | |esophagogastric tube is within the stomach. No acute bone process.. | | | |IMPRESSION: | |IMPRESSION: | |No significant interval change. | | | |Dictated by: Santana Walker | | | | | + + + +---------+ + + | Performing | Address | City/State/Zipcode | Phone Number | | Organization | | | | + +---------+ + + | [facility] | | | | + +---------+ + + XR Chest AP Portable (08/17/2018 8:15 AM PDT) + + | Specimen | + + | | + + + + + | Impressions | Performed At | + + + | IMPRESSION: 1. Stable position of support tubes. 2. Stable | [facility] | | bibasilar airspace disease. Dictated by: Santana Walker | | | | | + + + + + + | Narrative | Performed At | + + + | EXAMINATION: XR CHEST AP PORTABLE HISTORY: Mechanical | [facility] | | ventilation COMPARISON STUDY: August 16, 2018 FINDINGS: The | | | lungs are hypoventilated. Patchy bibasilar airspace opacities are | | | redemonstrated. Endotracheal tube tip terminates 5 cm above the | | | tom. The esophagogastric tube is within the stomach. No pleural | | | effusion. No pneumothorax. Heart size is stable. No acute | | | osseous process. | | + + + + + | Procedure Note | + + | Demario, Rad Results In - 08/17/2018 9:40 AM PDT EXAMINATION:XR CHEST AP | | PORTABLEHISTORY:Mechanical ventilationCOMPARISON STUDY:August 16, 2018FINDINGS:The lungs | | are hypoventilated. Patchy bibasilar airspace opacities are redemonstrated. | | Endotracheal tube tip terminates 5 cm above the tom. The esophagogastric tube is | | within the stomach. No pleural effusion. No pneumothorax. Heart size is stable. No | | acute osseous process.IMPRESSION: IMPRESSION:1. Stable position of support tubes.2. | | Stable bibasilar airspace disease.Dictated by: Santana Whittakeram | | | |FINDINGS: | |The lungs are hypoventilated. Patchy bibasilar airspace opacities are redemonstrated. End otracheal tube tip terminates 5 cm above the tom. The esophagogastric tube is within the stomach. No pleural effusion. No pneumothorax. Heart size is | |stable. No acute osseous process. | | | |IMPRESSION: | |IMPRESSION: | |1. Stable position of support tubes. | |2. Stable bibasilar airspace disease. | | | | | |Dictated by: Santana Walker | | | | | + + + +---------+ + + | Performing | Address | City/State/Zipcode | Phone Number | | Organization | | | | + +---------+ + + | [facility] | | | | + +---------+ + + POC Glucose (08/17/2018 6:21 AM PDT) + +---------+ + + + | Component | Value | Ref Range | Performed | Pathologist | | | | | At | Signature | + +---------+ + + + | Glucose, | 172 (H) | 70 - 110 mg/dL | [facility] | | POC | | | [facility] | | | | | [facility] | | + +---------+ + + + + + | Specimen | + + | Blood | + + + + + + + | Performing | Address | City/State/Zipcode | Phone Number | | Organization | | | | + + + + + | [facility] | [address] | [place] [address] | [phone] | | [facility] | | | | + + + + + Piero Manual (08/17/2018 5:10 AM PDT) + + + + + + | Component | Value | Ref Range | Performed | Pathologist | | | | | At | Signature | + + + + + + | % Segmented | 73.0 | 42.0 - 76.0 % | [facility] | | | | | [facility] | | | Neutrophils | | | [facility] | | | | | | [facility] | | + + + + + + | % | 17.0 (L) | 20.0 - 40.0 % | [facility] | | | Lymphocytes | | | [facility] | | | | | | [facility] | | + + + + + + | % Monocytes | 6.0 | 3.0 - 13.0 % | [facility] | | | | | [facility] | | | | | | [facility] | | + + + + + + | % Basophils | 1.0 | 0.0 - 2.0 % | [facility] | [facility] | | | | | | [facility] | | + + + + + + | % Bands | 3.0 | 0.0 - 7.0 % | [facility] | | [facility] | | | | | | [facility] | | + + + + + + | Absolute | 2.34 (L) | 2.50 - 8.50 | [facility] | | | Segmented | | K/uL | [facility] | | | Neutrophils | | | [facility] | | | | | | [facility] | | + + + + + + | Absolute | 0.54 (L) | 1.00 - 3.80 | [facility] | | | Lymphocytes | | K/uL | [facility] | | | | | | [facility] | | + + + + + + | Absolute | 0.19 | 0.00 - 0.80 | [facility] | | | Monocytes | | K/uL | [facility] | | | | | | [facility] | | + + + + + + | Absolute | 0.03 | 0.00 - 0.20 | [facility] | | | Basophils | | K/uL | [facility] | | | | | | [facility] | | + + + + + + | Absolute | 0.10 | 0.00 - 0.15 | [facility] | | | Bands | | K/uL | [facility] | | | | | | [facility] | | + + + + + + | Total | 100 | | [facility] | | | Counted | | | [facility] | | | | | | [facility] | | + + + + + + | WBC | Normal | | [facility] | | | Morphology | | | [facility] | | [facility] | | | [facility] | | + + + + + + | Platelet | Normal | | [facility] | | | Morphology | | | [facility] | [facility] | | | [facility] | | + + + + + + | Hypochromas | Slight (A) | (none) | [facility] | | | ia | | | [facility] | | | | | | [facility] | | + + + + + + | Ovalocytes | Slight (A) | (none) | [facility] | | | | [facility] | | | | | [facility] | | + + + + + + | RBC | Moderate (A) | (none) | [facility] | | | Microcytes | | | [facility] | | | | | | [facility] | | + + + + + + | Tear Drop | Slight (A) | (none) | [facility] | | | Cells | | | [facility] | | | | | | [facility] | | + + + + + + + + | Specimen | + + | Blood | + + + + + + + | Performing | Address | City/State/Zipcode | Phone Number | | Organization | | | | + + + + + | [facility] | [address] | [place] [address] | [phone] | | [facility] | | | | + + + + + CBC with Differential (08/17/2018 5:10 AM PDT) + + + + + + | Component | Value | Ref Range | Performed | Pathologist | | | | | At | Signature | + + + + + + | WBC | 3.2 (L) | 4.3 - 10.4 K/uL | [facility] | | [facility] | [facility] | [facility] | | + + + + + + | RBC | 3.28 (L) | 4.12 - 5.30 | [facility] | | | | M/uL | [facility] | | | | | | [facility] | | + + + + + + | Hemoglobin | 9.9 (L) | 12.4 - 15.7 | [facility] | | | | g/dL | [facility] | | | | | [facility] | | + + + + + + | Hematocrit | 30.8 (L) | 37.7 - 47.0 % | [facility] | | | [facility] | | | | | | [facility] | | + + + + + + | MCV | 93.9 | 82.0 - 97.0 fL | [facility] | | [facility] | | | | | | [facility] | | + + + + + + | MCH | 30.2 | 27.1 - 32.3 pg | [facility] | [facility] | | | | | | [facility] | | + + + + + + | MCHC | 32.1 | 32.0 - 36.9 | [facility] | | | | g/dL | [facility] | | [facility] | | | [facility] | | + + + + + + | RDW-CV | 22.5 (H) | 0.0 - 17.0 % | [facility] | | | | | [facility] | | | | | | [facility] | | + + + + + + | Platelet | 228 | 150 - 450 K/uL | [facility] | | | Count | | | [facility] | | | | | | [facility] | | + + + + + + | MPV | 11.5 | 9.4 - 12.3 fL | [facility] | | | | | [facility] | | | | | | [facility] | | + + + + + + | % nRBC | 1 (H) | <=0 per 100 | [facility] | | | | | WBCs | [facility] | | | | | | [facility] | | + + + + + + | Absolute | 0.02 (H) | 0.00 - 0.01 | [facility] | | | nRBC | | K/uL | [facility] | | | | | | [facility] | | + + + + + + + + | Specimen | + + | Blood | + + + + + + + | Performing | Address | City/State/Zipcode | Phone Number | | Organization | | | | + + + + + | [facility] | [address] | [place] [address] | [phone] | | [facility] | | | | + + + + + Comprehensive Metabolic Panel (08/17/2018 5:10 AM PDT) + + + + + + | Component | Value | Ref Range | Performed | Pathologist | | | | | At | Signature | + + + + + + | Na | 140 | 132 - 143 | [facility] | | | | | mmol/L | [facility] | | | | | | [facility] | | + + + + + + | K | 4.2 | 3.3 - 4.9 | [facility] | | | | mmol/L | [facility] | | [facility] | | | [facility] | | + + + + + + | Cl | 104 | 95 - 108 mmol/L | [facility] | [facility] | | [facility] | | + + + + + + | CO2 | 28 | 23 - 34 mmol/L | [facility] | [facility] | | | | | [facility] | | + + + + + + | Anion Gap | 8 | 7 - 16 mmol/L | [facility] | [facility] | [facility] | | [facility] | | + + + + + + | Glucose | 201 (H) | 70 - 110 mg/dL | [facility] | | | | | [facility] | | + + + + + + | BUN | 12 | 5 - 26 mg/dL | [facility] | | [facility] | | | | | | [facility] | | + + + + + + | Creatinine | 0.63 | 0.60 - 1.30 | [facility] | | | | mg/dL | [facility] | [facility] | | | | | | [facility] | | + + + + + + | eGFR if not | >60Comment: GLOMERULAR | >=60 | [facility] | | | | FILTRATION | mL/min/1.73m2 | [facility] | | | [facility] | R[facility],ESTIMATED | | [facility] | | | | mL/min/1.28x8Bxbw than | | LABORATORY | | | | 60 Chronic kidney | | | | | | disease,if found over a | | | | | | 3-month period.Less than | | | | | | 15 Kidney failureFor | | | | | | | | | | | | Americans,multiply the | | | | | | calculated GFR by 1.21. | | | | | | | | | | + + + + + + | Calcium | 9.2 | 8.3 - 10.0 | [facility] | | | | mg/dL | [facility] | | | | | | [facility] | | + + + + + + | Albumin | 3.1 | 3.0 - 4.5 g/dL | [facility] | | | | | [facility] | | | | | | [facility] | | + + + + + + | Bilirubin | 0.4 | 0.0 - 1.2 mg/dL | [facility] | | | Total | | | [facility] | | | | | | [facility] | | + + + + + + | Total | 6.3 (L) | 6.6 - 8.5 g/dL | [facility] | | | Protein | | | [facility] | | | | | | [facility] | | + + + + + + | AST | 12 | 0 - 38 U/L | [facility] | | | | | [facility] | | | | | | [facility] | | + + + + + + | ALT | 14 | 14 - 59 U/L | [facility] | | [facility] | | | | | | [facility] | | + + + + + + | Alkaline | 82 | 46 - 116 U/L | [facility] | | | Phosphatase | | | [facility] | | | | | | [facility] | | + + + + + + | Globulin | 3.2 | 2.4 - 4.5 g/dL | [facility] | | | | | [facility] | | | | | | [facility] | | + + + + + + | Albumin/Rylie | 1.0 | 0.8 - 2.0 | [facility] | | | bulin Ratio | | | [facility] | | | | | | [facility] | | + + + + + + | BUN/Creatin | 19.0 | 7.0 - 24.0 | [facility] | | | ine Ratio | | | [facility] | | | | | | [facility] | | + + + + + + + + | Specimen | + + | Blood | + + + + + + + | Performing | Address | City/State/Zipcode | Phone Number | | Organization | | | | + + + + + | [facility] | [address] | [place] [address] | [phone] | | [facility] | | | | + + + + + Calcium, Ionized (08/17/2018 5:10 AM PDT) + +-------+ + + + | Component | Value | Ref Range | Performed | Pathologist | | | | | At | Signature | + +-------+ + + + | Calcium, | 1.23 | 1.17 - 1.32 | [facility] | | | Ionized | | mmol/L | [facility] | | | | | | [facility] | | + +-------+ + + + + + | Specimen | + + | Blood | + + + + + + + | Performing | Address | City/State/Zipcode | Phone Number | | Organization | | | | + + + + + | [facility] | [address] | [place] [address] | [phone] | | [facility] | | | | + + + + + Phosphorus (08/17/2018 5:10 AM PDT) + +-------+ + + + | Component | Value | Ref Range | Performed | Pathologist | | | | | At | Signature | + +-------+ + + + | Phosphorus | 3.9 | 2.5 - 4.9 mg/dL | [facility] | [facility] | | | | | | [facility] | | + +-------+ + + + + + | Specimen | + + | Blood | + + + + + + + | Performing | Address | City/State/Zipcode | Phone Number | | Organization | | | | + + + + + | [facility] | [address] | [place] [address] | [phone] | | [facility] | | | | + + + + + Magnesium (08/17/2018 5:10 AM PDT) + +---------+ + + + | Component | Value | Ref Range | Performed | Pathologist | | | | | At | Signature | + +---------+ + + + | Magnesium | 1.5 (L) | 1.8 - 2.4 mg/dL | [facility] | | | | | | [facility] | | + +---------+ + + + + + | Specimen | + + | Blood | + + + + + + + | Performing | Address | City/State/Zipcode | Phone Number | | Organization | | | | + + + + + | [facility] | [address] | [place] [address] | [phone] | | [facility] | | | | + + + + + Blood Gas, Arterial (08/17/2018 3:53 AM PDT) + +---------+ + + + | Component | Value | Ref Range | Performed | Pathologist | | | | | At | Signature | + +---------+ + + + | pH Temp | 7.41 | 7.35 - 7.45 | [facility] | | | Corrected, | | | [facility] | | [facility] | [facility] | | | | | | [facility] | | + +---------+ + + + | pCO2 Temp | 44 | 35 - 45 mm Hg | [facility] | | Corrected, | | | [facility] | | | | | | [facility] | | + +---------+ + + + | pO2 Temp | 87 | 69 - 116 mm Hg | [facility] | | Corrected, | | | [facility] | | | | | | [facility] | | + +---------+ + + + | pH, | 7.40 | 7.35 - 7.45 | [facility] | | [facility] | | | [facility] | | | | | | [facility] | | + +---------+ + + + | pCO2, | 45 | 35 - 45 mm Hg | [facility] | | | [facility] | | | | | | [facility] | | + +---------+ + + + | pO2, | 89 | 69 - 116 mm Hg | [facility] | | [facility] | | | [facility] | | | | | | [facility] | | + +---------+ + + + | HCO3, | 27.9 | 17.0 - 28.0 | [facility] | | Arterial | | mmol/L | [facility] | | | | | | [facility] | | + +---------+ + + + | Base | 2.7 (H) | -2.4 - 2.3 | [facility] | | | Excess, | | mmol/L | [facility] | [facility] | | | | | | [facility] | | + +---------+ + + + | TCO2, | 29 (H) | 21 - 25 mmol/L | [facility] | | [facility] | | | [facility] | [facility] | | | | | | [facility] | | + +---------+ + + + | O2 | 96 | 95 - 99 % | [facility] | | | Saturation, | | | [facility] | [facility] | | | | | | [facility] | | + +---------+ + + + | FiO2 | 35.0 | % | [facility] | | [facility] | | [facility] | | | | | | [facility] | | + +---------+ + + + | PATIENT | 36.5 | | [facility] | | TEMP | | | [facility] | | [facility] | | | | | | [facility] | | + +---------+ + + + + + | Specimen | + + | Blood | + + + + + + + | Performing | Address | City/State/Zipcode | Phone Number | | Organization | | | | + + + + + | [facility] | [address] | [place] [address] | [phone] | | [facility] | | | | + + + + + POC Glucose (08/16/2018 11:57 PM PDT) + +---------+ + + + | Component | Value | Ref Range | Performed | Pathologist | | | | | At | Signature | + +---------+ + + + | Glucose, | 181 (H) | 70 - 110 mg/dL | [facility] | | | POC | | | [facility] | | | | | | LABORATORY | | + +---------+ + + + + + | Specimen | + + | Blood | + + + + + + + | Performing | Address | City/State/Zipcode | Phone Number | | Organization | | | | + + + + + | [facility] | [address] | [place] [address] | [phone] | | [facility] | | | | + + + + + POC Glucose (08/16/2018 6:06 PM PDT) + +---------+ + + + | Component | Value | Ref Range | Performed | Pathologist | | | | | At | Signature | + +---------+ + + + | Glucose, | 211 (H) | 70 - 110 mg/dL | [facility] | | [facility] | | [facility] | | | | | | [facility]ATORY | | + +---------+ + + + + + | Specimen | + + | Blood | + + + + + + + | Performing | Address | City/State/Zipcode | Phone Number | | Organization | | | | + + + + + | [facility] | [address] | [place] [address] | [phone] | | [facility] | | | | + + + + + ECHO Complete (08/16/2018 1:41 PM PDT) + + | Specimen | + + | | + + + + + | Narrative | Performed At | + + + | | | + + + POC Glucose (08/16/2018 12:05 PM PDT) + +---------+ + + + | Component | Value | Ref Range | Performed | Pathologist | | | | | At | Signature | + +---------+ + + + | Glucose, | 234 (H) | 70 - 110 mg/dL | [facility] | | [facility] | | [facility] | | | | | | [facility]ATORY | | + +---------+ + + + + + | Specimen | + + | Blood | + + + + + + + | Performing | Address | City/State/Zipcode | Phone Number | | Organization | | | | + + + + + | [facility] | [address] | [place] [address] | [phone] | | [facility] | | | | + + + + + XR Chest AP Portable (08/16/2018 8:10 AM PDT) + + | Specimen | + + | | + + + + + | Impressions | Performed At | + + + | IMPRESSION: Bilateral pneumonia, unchanged Stable position of | [facility] | | support tubes. Dictated by: Santana Walker Electronically | | | Signed by: Santana Walker on 08/16/2018 8:46 AM | | + + + + + + | Narrative | Performed At | + + + | EXAMINATION: XR CHEST AP PORTABLE HISTORY: Mechanical | [facility] | | ventilation COMPARISON STUDY: August 15, 2018 FINDINGS: The | | | lungs are mildly hypoventilated. Persistent bibasilar airspace | | | opacities are noted. The endotracheal tube and esophagogastric tube | | | are appropriately positioned. No pleural effusion. No | | | pneumothorax. Cardiomediastinal silhouette is normal. No acute | | | osseous process. | | + + + + + | Procedure Note | + + | Demario, Rad Results In - 08/16/2018 8:49 AM PDT EXAMINATION:XR CHEST AP | | PORTABLEHISTORY:Mechanical ventilationCOMPARISON STUDY:August 15, 2018FINDINGS:The lungs | | are mildly hypoventilated. Persistent bibasilar airspace opacities are noted. The | | endotracheal tube and esophagogastric tube are appropriately positioned. No pleural | | effusion. No pneumothorax. Cardiomediastinal silhouette is normal. No acute osseous | | process.IMPRESSION: IMPRESSION:Bilateral pneumonia, unchangedStable position of support | | tubes.Dictated by: Santana Taylorectronically Signed by: Santana Walker on 08/16/2018 | | 8:46 AM | | | |FINDINGS: | |The lungs are mildly hypoventilated. Persistent bibasilar airspace opacities are noted. T he endotracheal tube and esophagogastric tube are appropriately positioned. No pleural effu james. No pneumothorax. Cardiomediastinal silhouette is normal. No | |acute osseous process. | | | |IMPRESSION: | |IMPRESSION: | |Bilateral pneumonia, unchanged | |Stable position of support tubes. | | | |Dictated by: Santana Walker | | | | | + + + +---------+ + + | Performing | Address | City/State/Zipcode | Phone Number | | Organization | | | | + +---------+ + + | [facility] | | | | + +---------+ + + POC Glucose (08/16/2018 6:23 AM PDT) + +---------+ + + + | Component | Value | Ref Range | Performed | Pathologist | | | | | At | Signature | + +---------+ + + + | Glucose, | 221 (H) | 70 - 110 mg/dL | [facility] | [facility] | | | | | | [facility]ORY | | + +---------+ + + + + + | Specimen | + + | Blood | + + + + + + + | Performing | Address | City/State/Zipcode | Phone Number | | Organization | | | | + + + + + | [facility] | [address] | [place] [address] | [phone] | | [facility] | | | | + + + + + Magnesium (08/16/2018 5:17 AM PDT) + +---------+ + + + | Component | Value | Ref Range | Performed | Pathologist | | | | | At | Signature | + +---------+ + + + | Magnesium | 1.5 (L) | 1.8 - 2.4 mg/dL | [facility] | [facility] | | | | | | [facility] | | + +---------+ + + + + + | Specimen | + + | Blood | + + + + + + + | Performing | Address | City/State/Zipcode | Phone Number | | Organization | | | | + + + + + | [facility] | [address] | [place] [address] | [phone] | | [facility] | | | | + + + + + CBC with Differential (08/16/2018 5:17 AM PDT) + + + + + + | Component | Value | Ref Range | Performed | Pathologist | | | | | At | Signature | + + + + + + | WBC | 2.5 (L) | 4.3 - 10.4 K/uL | [facility] | | | | | | [facility] | | + + + + + + | RBC | 3.14 (L) | 4.12 - 5.30 | [facility] | | | | | M/uL | [facility] | | | | | | [facility] | | + + + + + + | Hemoglobin | 9.5 (L) | 12.4 - 15.7 | [facility] | | | | | g/dL | [facility] | | | | | | [facility] | | + + + + + + | Hematocrit | 29.9 (L) | 37.7 - 47.0 % | [facility] | | | [facility] | | | | | | [facility] | | + + + + + + | MCV | 95.2 | 82.0 - 97.0 fL | [facility] | | | | | | [facility] | | + + + + + + | MCH | 30.3 | 27.1 - 32.3 pg | [facility] | | | | [facility] | | | | | | [facility] | | + + + + + + | MCHC | 31.8 (L) | 32.0 - 36.9 | [facility] | | | | | g/dL | [facility] | | | | | | [facility] | | + + + + + + | RDW-CV | 22.1 (H) | 0.0 - 17.0 % | [facility] | | | [facility] | | | | | | [facility] | | + + + + + + | Platelet | 225 | 150 - 450 K/uL | [facility] | | | Count | | | [facility] | | | | | | [facility] | | + + + + + + | MPV | 12.2 | 9.4 - 12.3 fL | [facility] | | | | | [facility] | | | | | | [facility] | | + + + + + + | % | 85.0 (H) | 42.0 - 76.0 % | [facility] | | | Neutrophils | | | [facility] | | | | | | [facility] | | + + + + + + | % | 9.1 (L) | 20.0 - 40.0 % | [facility] | | | Lymphocytes | | | [facility] | | | | | | [facility] | | + + + + + + | % Monocytes | 4.7 | 3.0 - 13.0 % | [facility] | | | | | [facility] | | | | | | [facility] | | + + + + + + | % | 0.0 | 0.0 - 7.0 % | [facility] | | | Eosinophils | | | [facility] | | | | | | [facility] | | + + + + + + | % Basophils | 0.8 | 0.0 - 2.0 % | [facility] | | | | [facility] | | | | | | [facility] | | + + + + + + | % Immature | 0.4 | 0.0 - 0.5 % | [facility] | | | Granulocyte | | | [facility] | | | [facility] | | | [facility] | | | | | | LAB[facility]ATORY | | + + + + + + | Absolute | 2.15 (L) | 2.50 - 8.50 | [facility] | | | Neutrophils | | K/uL | [facility] | | | | | | [facility] | | + + + + + + | Absolute | 0.23 (L) | 1.00 - 3.80 | [facility] | | | Lymphocytes | | K/uL | [facility] | | | | | | [facility] | | + + + + + + | Absolute | 0.12 | 0.00 - 0.80 | [facility] | | | Monocytes | | K/uL | [facility] | | | | | | [facility] | | + + + + + + | Absolute | 0.00 | 0.00 - 0.70 | [facility] | | | Eosinophils | | K/uL | [facility] | | | | | | [facility] | | + + + + + + | Absolute | 0.02 | 0.00 - 0.20 | [facility] | | | Basophils | | K/uL | [facility] | | | | | | [facility] | | + + + + + + | Absolute | 0.01 | 0.00 - 0.15 | [facility] | | | Immature | | K/uL | [facility] | | | Granulocyte | | | [facility] | | | s | | | LABORATORY | | + + + + + + | % nRBC | 0 | <=0 per 100 | [facility] | | | | | WBCs | [facility] | | | | | | [facility] | | + + + + + + | Absolute | 0.00 | 0.00 - 0.01 | [facility] | | | nRBC | | K/uL | [facility] | | | | | | [facility] | | + + + + + + + + | Specimen | + + | Blood | + + + + + | Narrative | Performed At | + + + | Smear review confirms the stated values. | [facility] | | | [facility] | + + + + + + + + | Performing | Address | City/State/Zipcode | Phone Number | | Organization | | | | + + + + + | [facility] | [address] | [place] [address] | [phone] | | [facility] | | | | + + + + + Basic Metabolic Panel (08/16/2018 5:17 AM PDT) + +---------+ + + + | Component | Value | Ref Range | Performed | Pathologist | | | | | At | Signature | + +---------+ + + + | Na | 140 | 132 - 143 | [facility] | | | | | mmol/L | [facility] | | | | | | [facility] | | + +---------+ + + + | K | 4.5 | 3.3 - 4.9 | [facility] | | | | mmol/L | [facility] | | | | | | [facility] | | + +---------+ + + + | Cl | 104 | 95 - 108 mmol/L | [facility] | | | [facility] | | | | | | [facility] | | + +---------+ + + + | CO2 | 24 | 23 - 34 mmol/L | [facility] | | | | | [facility] | | + +---------+ + + + | Anion Gap | 12 | 7 - 16 mmol/L | [facility] | | | | | [facility] | | + +---------+ + + + | Glucose | 228 (H) | 70 - 110 mg/dL | [facility] | | | | | [facility] | | + +---------+ + + + | BUN | 15 | 5 - 26 mg/dL | [facility] | | | | | [facility] | | + +---------+ + + + | Creatinine | 0.84 | 0.60 - 1.30 | [facility] | | | | mg/dL | [facility] | | | | | | [facility] | | + +---------+ + + + | eGFR if not | >60 | >=60 | [facility] | | | | | mL/min/1.73m2 | [facility] | | | | [facility] | | + +---------+ + + + | Calcium | 8.8 | 8.3 - 10.0 | [facility] | | | | | mg/dL | [facility] | | | | | | [facility] | | + +---------+ + + + | BUN/Creatin | 17.9 | 7.0 - 24.0 | [facility] | | | ine Ratio | | | [facility] | | | | | | [facility] | | + +---------+ + + + + + | Specimen | + + | Blood | + + + + + + + | Performing | Address | City/State/Zipcode | Phone Number | | Organization | | | | + + + + + | [facility] | [address] | [place] [address] | [phone] | | [facility] | | | | + + + + + Blood Gas, Arterial (08/16/2018 4:10 AM PDT) + +--------+ + + + | Component | Value | Ref Range | Performed | Pathologist | | | | | At | Signature | + +--------+ + + + | pH Temp | 7.35 | 7.35 - 7.45 | [facility] | | | Corrected, | | | [facility] | | | | | | [facility] | | + +--------+ + + + | pCO2 Temp | 48 (H) | 35 - 45 mm Hg | [facility] | | | Corrected, | | | [facility] | | | | | | [facility] | | + +--------+ + + + | pO2 Temp | 82 | 69 - 116 mm Hg | [facility] | | Corrected, | | | [facility] | | | | | | [facility] | | + +--------+ + + + | pH, | 7.36 | 7.35 - 7.45 | [facility] | | Ar[facility] | | | [facility] | | | | | [facility] | | + +--------+ + + + | pCO2, | 47 (H) | 35 - 45 mm Hg | [facility] | | [facility] | | | [facility] | | | | | [facility] | | + +--------+ + + + | pO2, | 79 | 69 - 116 mm Hg | [facility] | | [facility] | | | [facility] | | | | | [facility] | | + +--------+ + + + | HCO3, | 26.5 | 17.0 - 28.0 | [facility] | | | Arterial | | mmol/L | [facility] | | | | | | [facility] | | + +--------+ + + + | Base | 0.7 | -2.4 - 2.3 | [facility] | | | Excess, | | mmol/L | [facility] | | | | | | [facility] | | + +--------+ + + + | TCO2, | 28 (H) | 21 - 25 mmol/L | [facility] | | [facility] | | | [facility] | | | | | | [facility] | | + +--------+ + + + | O2 | 95 | 95 - 99 % | [facility] | | | Saturation, | | | [facility] | | | | | | [facility] | | + +--------+ + + + | FiO2 | 50.0 | % | [facility] | | | [facility] | | | | | | [facility] | | + +--------+ + + + | PATIENT | 37.5 | | [facility] | | TEMP | | | [facility] | | | | | | [facility] | | + +--------+ + + + + + | Specimen | + + | Blood | + + + + + + + | Performing | Address | City/State/Zipcode | Phone Number | | Organization | | | | + + + + + | [facility] | [address] | [place] [address] | [phone] | | [facility] | | | | + + + + + POC Glucose (08/16/2018 12:12 AM PDT) + +---------+ + + + | Component | Value | Ref Range | Performed | Pathologist | | | | | At | Signature | + +---------+ + + + | Glucose, | 156 (H) | 70 - 110 mg/dL | [facility] | | [facility] | | | [facility] | | | | | | [facility] | | + +---------+ + + + + + | Specimen | + + | Blood | + + + + + + + | Performing | Address | City/State/Zipcode | Phone Number | | Organization | | | | + + + + + | [facility] | [address] | [place] [address] | [phone] | | [facility] | | | | + + + + + Blood Gas, Arterial (08/15/2018 6:32 PM PDT) + + + + + + | Component | Value | Ref Range | Performed | Pathologist | | | | | At | Signature | + + + + + + | pH Temp | 7.41 | 7.35 - 7.45 | [facility] | | Corrected, | | | [facility] | | | | | [facility] | | + + + + + + | pCO2 Temp | 47 (H) | 35 - 45 mm Hg | [facility] | | Corrected, | | | [facility] | | | | | | [facility] | | + + + + + + | pO2 Temp | 82 | 69 - 116 mm Hg | [facility] | | | Corrected, | | | [facility] | | | | | | [facility] | | + + + + + + | pH, | 7.41 | 7.35 - 7.45 | [facility] | | [facility] | | | [facility] | | | | | [facility] | | + + + + + + | pCO2, | 47 (H) | 35 - 45 mm Hg | [facility] | | [facility] | | | [facility] | | | | | [facility] | | + + + + + + | pO2, | 82 | 69 - 116 mm Hg | [facility] | [facility] | | | [facility] | | | | | [facility] | | + + + + + + | HCO3, | 29.2 (H) | 17.0 - 28.0 | [facility] | | Arter[facility] | | mmol/L | [facility] | | | | | | [facility] | | + + + + + + | Base | 3.9 (H) | -2.4 - 2.3 | [facility] | | | Excess, | | mmol/L | [facility] | | | | | | [facility] | | + + + + + + | TCO2, | 31 (H) | 21 - 25 mmol/L | [facility] | | [facility] | | | [facility] | | | | | [facility] | | + + + + + + | O2 | 94 (L) | 95 - 99 % | [facility] | | | Saturation, | | | [facility] | | | | | | [facility] | | + + + + + + | FiO2 | 70.0 | % | [facility] | | | | [facility] | | | | | | [facility] | | + + + + + + | PATIENT | 37.0 | | [facility] | | TEMP | | | [facility] | | | | | | [facility] | | + + + + + + + + | Specimen | + + | Blood | + + + + + + + | Performing | Address | City/State/Zipcode | Phone Number | | Organization | | | | + + + + + | [facility] | [address] | [place] [address] | [phone] | | [facility] | | | | + + + + + XR Chest PA or AP (08/15/2018 5:28 PM PDT) + + | Specimen | + + | | + + + + + | Impressions | Performed At | + + + | IMPRESSION: Appropriate positioning of endotracheal and | [facility] | | esophagogastric tube. Dictated by: Santana Walker | | | | | + + + + + + | Narrative | Performed At | + + + | EXAMINATION: XR CHEST PA OR AP HISTORY: Intubation and OG | [facility] | | placement COMPARISON STUDY: August 15, 2018 FINDINGS: The | | | lungs are mildly hypoventilated. Patchy airspace opacities are | | | redemonstrated bilaterally. There has been interval placement of | | | endotracheal tube. Tip terminates 3.9 cm above the tom. | | | Esophagogastric tube is within the stomach. No pleural effusion. | | | No pneumothorax. Heart size is stable. No acute osseous | | | process. | | + + + + + | Procedure Note | + + | Demario, Rad Results In - 08/15/2018 5:36 PM PDT EXAMINATION:XR CHEST PA OR | | APHISTORY:Intubation and OG placementCOMPARISON STUDY:August 15, 2018FINDINGS:The lungs | | are mildly hypoventilated. Patchy airspace opacities are redemonstrated bilaterally. | | There has been interval placement of endotracheal tube. Tip terminates 3.9 cm above the | | tom. Esophagogastric tube is within the stomach. No pleural effusion. No | | pneumothorax. Heart size is stable. No acute osseous process.IMPRESSION: | | IMPRESSION:Appropriate positioning of endotracheal and esophagogastric tube.Dictated by: | | Santana Taylorectronically Signed by: Santana Walker on 08/15/2018 5:32 PM | | | |FINDINGS: | |The lungs are mildly hypoventilated. Patchy airspace opacities are redemonstrated bilatera lly. There has been interval placement of endotracheal tube. Tip terminates 3.9 cm above t he tom. Esophagogastric tube is within the stomach. No pleural | |effusion. No pneumothorax. Heart size is stable. No acute osseous process. | | | |IMPRESSION: | |IMPRESSION: | |Appropriate positioning of endotracheal and esophagogastric tube. | | | |Dictated by: Santana Walker | | | | | + + + +---------+ + + | Performing | Address | City/State/Zipcode | Phone Number | | Organization | | | | + +---------+ + + | [facility] | | | | + +---------+ + + POC Glucose (08/15/2018 4:33 PM PDT) + +---------+ + + + | Component | Value | Ref Range | Performed | Pathologist | | | | | At | Signature | + +---------+ + + + | Glucose, | 119 (H) | 70 - 110 mg/dL | [facility] | [facility] | | | [facility] | | | [facility] | [facility] | | + +---------+ + + + + + | Specimen | + + | Blood | + + + + + + + | Performing | Address | City/State/Zipcode | Phone Number | | Organization | | | | + + + + + | [facility] | [address] | [place] [address] | [phone] | | [facility] | | | | + + + + + Blood Gas, Arterial (08/15/2018 4:10 PM PDT) + + + + + + | Component | Value | Ref Range | Performed | Pathologist | | | | | At | Signature | + + + + + + | pH Temp | 7.28 (L) | 7.35 - 7.45 | [facility] | | | Corrected, | | | [facility] | | | | | | [facility] | | + + + + + + | pCO2 Temp | 65 (H) | 35 - 45 mm Hg | [facility] | | | Corrected, | | | [facility] | | | | | | [facility] | | + + + + + + | pO2 Temp | 80 | 69 - 116 mm Hg | [facility] | | | [facility]rected, | | | [facility] | | | | | | [facility] | | + + + + + + | pH, | 7.28 (L) | 7.35 - 7.45 | [facility] | | [facility] | | | [facility] | | | | | | [facility] | | + + + + + + | pCO2, | 66 (HH) | 35 - 45 mm Hg | [facility] | | [facility] | | | [facility] | | | | | | [facility] | | + + + + + + | pO2, | 82 | 69 - 116 mm Hg | [facility] | | [facility] | | | [facility] | | | | | | [facility] | | + + + + + + | HCO3, | 31.0 (H) | 17.0 - 28.0 | [facility] | | | [facility] | | mmol/L | [facility] | | | | | | [facility] | | + + + + + + | Base | 3.2 (H) | -2.4 - 2.3 | [facility] | | | Excess, | | mmol/L | [facility] | | | | | | [facility] | | + + + + + + | TCO2, | 33 (H) | 21 - 25 mmol/L | [facility] | | [facility] | | | [facility] | | | | | | [facility] | | + + + + + + | O2 | 92 (L) | 95 - 99 % | [facility] | | | Saturation, | | | [facility] | | | | | | [facility] | | + + + + + + | FiO2 | 50.0 | % | [facility] | | | | [facility] | | | | | | [facility] | | + + + + + + | PATIENT | 36.6 | | [facility] | | [facility] | | | [facility] | | | | | | [facility] | | + + + + + + + + | Specimen | + + | Blood | + + + + + + + | Performing | Address | City/State/Zipcode | Phone Number | | Organization | | | | + + + + + | [facility] | [address] | [place] [address] | [phone] | | [facility] | | | | + + + + + POC Glucose (08/15/2018 2:29 PM PDT) + +---------+ + + + | Component | Value | Ref Range | Performed | Pathologist | | | | | At | Signature | + +---------+ + + + | Glucose, | 129 (H) | 70 - 110 mg/dL | [facility] | | P[facility] | | | [facility] | | | | | | [facility] | | + +---------+ + + + + + | Specimen | + + | Blood | + + + + + + + | Performing | Address | City/State/Zipcode | Phone Number | | Organization | | | | + + + + + | [facility] | [address] | [place] [address] | [phone] | | [facility] | | | | + + + + + Blood Gas, Arterial (08/15/2018 1:09 PM PDT) + + + + + + | Component | Value | Ref Range | Performed | Pathologist | | | | | At | Signature | + + + + + + | pH Temp | 7.33 (L) | 7.35 - 7.45 | [facility] | | | Corrected, | | | [facility] | | | | | | [facility] | | + + + + + + | pCO2 Temp | 58 (H) | 35 - 45 mm Hg | [facility] | | Corrected, | | | [facility] | | | | | | [facility] | | + + + + + + | pO2 Temp | 98 | 69 - 116 mm Hg | [facility] | | | Corrected, | | | [facility] | | | | | | [facility] | | + + + + + + | pH, | 7.30 (L) | 7.35 - 7.45 | [facility] | | [facility] | | | [facility] | | | | | | [facility] | | + + + + + + | pCO2, | 63 (H) | 35 - 45 mm Hg | [facility] | | [facility] | [facility] | | + + + + + + | pO2, | 108 | 69 - 116 mm Hg | [facility] | | | [facility] | [facility] | | + + + + + + | HCO3, | 31.2 (H) | 17.0 - 28.0 | [facility] | | [facility] | | mmol/L | [facility] | | | | | | [facility] | | + + + + + + | Base | 3.7 (H) | -2.4 - 2.3 | [facility] | | | Excess, | | mmol/L | [facility] | | | | | | [facility] | | + + + + + + | TCO2, | 33 (H) | 21 - 25 mmol/L | [facility] | | | [facility] | [facility] | | + + + + + + | O2 | 95 | 95 - 99 % | [facility] | | Saturation, | | | [facility] | | | | | | [facility] | | + + + + + + | FiO2 | 50.0 | % | [facility] | | | [facility] | [facility] | | + + + + + + | PATIENT | 34.9 | | [facility] | [facility] | | | [facility] | | | | [facility] | | + + + + + + + + | Specimen | + + | Blood | + + + + + + + | Performing | Address | City/State/Zipcode | Phone Number | | Organization | | | | + + + + + | [facility] | [address] | [place] [address] | [phone] | | [facility] | | | | + + + + + Blood Gas, Arterial (08/15/2018 10:51 AM PDT) + + + + + + | Component | Value | Ref Range | Performed | Pathologist | | | | | At | Signature | + + + + + + | pH Temp | 7.31 (L) | 7.35 - 7.45 | [facility] | | [facility], | | | [facility] | | | | | | [facility] | | + + + + + + | pCO2 Temp | 62 (H) | 35 - 45 mm Hg | [facility] | | | [facility] | | | | | | [facility] | | + + + + + + | pO2 Temp | 63 (L) | 69 - 116 mm Hg | [facility] | [facility], | | | [facility] | | | | | [facility] | | + + + + + + | pH, | 7.28 (L) | 7.35 - 7.45 | [facility] | | [facility] | | [facility] | | + + + + + + | pCO2, | 68 (HH) | 35 - 45 mm Hg | [facility] | | [facility] | [facility] | | [facility] | | + + + + + + | pO2, | 72 | 69 - 116 mm Hg | [facility] | | [facility] | | [facility] | | [facility] | | + + + + + + | HCO3, | 31.8 (H) | 17.0 - 28.0 | [facility] | | [facility] | | mmol/L | [facility] | | | | | | [facility] | | + + + + + + | Base | 3.8 (H) | -2.4 - 2.3 | [facility] | | | Excess, | | mmol/L | [facility] | | | | | | [facility] | | + + + + + + | TCO2, | 34 (H) | 21 - 25 mmol/L | [facility] | | [facility] | [facility] | | [facility] | | | [facility] | | + + + + + + | O2 | 90 (L) | 95 - 99 % | [facility] | | Saturation, | | | [facility] | | | | | | [facility] | | + + + + + + | FiO2 | 50.0 | % | [facility] | [facility] | [facility] | | | | | | [facility] | | + + + + + + | PATIENT | 34.9 | | [facility] | | | [facility] | [facility] | | | [facility] | | [facility] | | + + + + + + + + | Specimen | + + | Blood | + + + + + + + | Performing | Address | City/State/Zipcode | Phone Number | | Organization | | | | + + + + + | [facility] | [address] | [place] [address] | [phone] | | [facility] | | | | + + + + + Culture, Blood (08/15/2018 10:51 AM PDT) + + + + + + | Component | Value | Ref Range | Performed | Pathologist | | | | | At | Signature | + + + + + + | Culture | No growth after 5 days | | [facility] | | | | incubation. | | [facility] | | | | | | [facility]ATORY | | + + + + + + + + | Specimen | + + | Blood - Peripheral | | blood specimen | | (specimen) | + + + + + + + | Performing | Address | City/State/Zipcode | Phone Number | | Organization | | | | + + + + + | [facility] | [address] | [place] [address] | [phone] | | [facility] | | | | + + + + + Culture, Blood (08/15/2018 10:27 AM PDT) + + + + + + | Component | Value | Ref Range | Performed | Pathologist | | | | | At | Signature | + + + + + + | Culture | No growth after 5 days | | [facility] | | | | incubation. | | [facility] | | | | | | LABORATORY | | + + + + + + + + | Specimen | + + | Blood - Peripheral | | blood specimen | | (specimen) | + + + + + + + | Performing | Address | City/State/Zipcode | Phone Number | | Organization | | | | + + + + + | [facility] | [address] | [place] [address] | [phone] | | [facility] | | | | + + + + + ECG 12 lead (08/15/2018 8:53 AM PDT) + + | Specimen | + + | | + + + + + | Narrative | Performed At | + + + | Heart Rate: 78 | [facility] | | bpmQRS Interval: 94 msQT Interval: 436 msQTC Interval: 497 msP [place]: | [facility] | | 18 degQRS [place]: -32 degT Wave [place]: 37 degP-R Interval: 244 msec- | | | ABNORMAL ECG -SINUS RHYTHMFIRST DEGREE AV BLOCKCONSIDER LEFT ATRIAL | | | ABNORMALITYLEFT AXIS DEVIATIONBORDERLINE PROLONGED QT INTERVAL | | |QRS [place]: -32 deg | | |T Wave [place]: 37 deg | | |P-R Interval: 244 msec | | |- ABNORMAL ECG - | | |SINUS RHYTHM | | |FIRST DEGREE AV BLOCK | | |CONSIDER LEFT ATRIAL ABNORMALITY | | |LEFT AXIS DEVIATION | | |BORDERLINE PROLONGED QT INTERVAL | | + + + + +---------+ + + | Performing | Address | City/State/Zipcode | Phone Number | | Organization | | | | + +---------+ + + | [facility] | | | | + +---------+ + + Drugs of Abuse, Screen, Urine (08/15/2018 8:47 AM PDT) + + + + + + | Component | Value | Ref Range | Performed | Pathologist | | | | | At | Signature | + + + + + + | Cannabinoid | Negative | Negative | [facility] | | | s Screen, | | | [facility] | | | Urine | | | [facility] | | | | | | LABORATORY | | + + + + + + | Cocaine | Negative | Negative | [facility] | | | Screen, | | | [facility] | | | Urine | | | [facility] | | | | | | LABORATORY | | + + + + + + | Phencyclidi | Negative | Negative | [facility] | | | ne Screen, | | | [facility] | | | Urine | | | [facility] | | | | | | LABORATORY | | + + + + + + | Methampheta | Negative | Negative | [facility] | | | mine | | | [facility] | | | Screen, | | | [facility] | | | Urine | | | LABORATORY | | + + + + + + | Opiates | Negative | Negative | [facility] | | | Screen, | | | [facility] | | | Urine | | | [facility] | | | | | | LABORATORY | | + + + + + + | Amphetamine | Negative | Negative | [facility] | | | Screen, | | | [facility] | | | Urine | | | [facility] | | | | | | LABORATORY | | + + + + + + | Benzodiazep | Negative | Negative | [facility] | | | claudio | | | [facility] | | | Screen, | | | [facility] | | | Urine | | | LABORATORY | | + + + + + + | Tricyclic | Negative | Negative | [facility] | | | Antidepress | | | [facility] | | | ants | | | [facility] | | | Screen, | | | LABORATORY | | | Urine | | | | | + + + + + + | Methadone | Negative | Negative | [facility] | | | Screen, | | | [facility] | | | Urine | | | [facility] | | | | | | LABORATORY | | + + + + + + | Barbiturate | Negative | Negative | [facility] | | | s Screen, | | | [facility] | | | Urine | | | [facility] | | | | | | LABORATORY | | + + + + + + | Oxycodone | Negative | Negative | [facility] | | | Screen, | | | [facility] | | | Urine | | | [facility] | | | | | | LABORATORY | | + + + + + + | Propoxyphen | Negative | Negative | [facility] | | | e Screen, | | | [facility] | | | Urine | | | [facility] | | | | | | LABORATORY | | + + + + + + | Buprenorphi | Negative | Negative | [facility] | | | ne Screen, | | | [facility] | | | Urine | | | [facility] | | | | | | LABORATORY | | + + + + + + + + | Specimen | + + | Urine | + + + + + | Narrative | Performed At | + + + | Qualitative drug screen intended for emergency medical use only. Not | [facility] | | intended for legal purposes. Chain of Custody not maintained. | HOSPITAL | | Confirmation of Positive results must be ordered by the attending | LABORATORY | | physician. [id number] drugs may cross react with some methods. | | | Call the laboratory if further information is needed. | | | AMPHETAMINE 500 ng/mL BARBITURATES | | | 200 ng/mL BENZODIAZEPINES | | | 150 ng/mL BUPRENORPHINE 10 ng/mL COCAINE | | | 150 ng/mL METHAMPHETAMINES | | | 500 ng/mL METHADONE | | | 200 ng/mL OPIATES 100 ng/mL | | | OXYCODONE 100 ng/mL PHENCYCLIDINE | | | 25 ng/mL PROPOXYPHENE | | | 300 ng/mL CANNABINOIDS 50 ng/mL | | | TRICYCLIC ANTIDEPRES 300 ng/mL | | + + + + + + + + | Performing | Address | City/State/Zipcode | Phone Number | | Organization | | | | + + + + + | [facility] | [address] | [place] [address] | [phone] | | [facility] | | | | + + + + + Urinalysis with Microscopic with Culture if Indicated (08/15/2018 8:47 AM PDT) + + + + + + | Component | Value | Ref Range | Performed | Pathologist | | | | | At | Signature | + + + + + + | Color | Yellow | Pale Yellow, | [facility] | | | | | Yellow | [facility] | | | | | [facility] | | | | | | LABORATORY | | + + + + + + | Clarity | Clear | Clear | [facility] | | | | | | [facility] | | | | [facility] | | | | | | [facility]ATORY | | + + + + + + | pH, Urine | 5.0 | 5.0 - 7.0 | [facility] | | | | | | [facility] | | | | [facility] | | | | | | [facility]ATORY | | + + + + + + | Specific | 1.015 | 1.003 - 1.030 | [facility] | | | [place] | | | [facility] | | | | | [facility] | | | | | | LABORATORY | | + + + + + + | Protein, | 30 mg/dL (A) | Negative | [facility] | | | Urine | | | [facility] | | | | | [facility] | | | | | | LABORATORY | | + + + + + + | Blood, | Negative | Negative | [facility] | | | Urine | | | [facility] | | | | [facility] | | | | | | LABORATORY | | + + + + + + | Glucose, | Normal | Normal | [facility] | | | Urine | | | [facility] | | | | | [facility] | | | | | | LABORATORY | | + + + + + + | Ketones, | Negative | Negative | [facility] | | | Urine | | | [facility] | | | | [facility] | | | | | | LABORATORY | | + + + + + + | Bilirubin, | 1 mg/dL (A) | Negative | [facility] | | | Urine | | | [facility] | | | | [facility] | | | | | | LABORATORY | | + + + + + + | Nitrite, | Negative | Negative | [facility] | | | Urine | | | [facility] | | | | | [facility] | | | | | | LABORATORY | | + + + + + + | Leukocyte | 25 royer/uL (A) | Negative | [facility] | | | Esterase, | | | [facility] | | | Urine | | | [facility] | | | | | | LABORATORY | | + + + + + + | Urobilinoge | Normal | 0-1.0 mg/dL | [facility] | | | n, Urine | | | [facility] | | | | | [facility] | | | | | | LABORATORY | | + + + + + + | WBC UA | 0-2 | <=5 /HPF | [facility] | | | | | | [facility] | | | | [facility] | | | | | | [facility]AT[facility] | | + + + + + + | RBC UA | None Seen | <=5 /HPF | [facility] | | | | | [facility] | | | | [facility] | | | | | | [facility] | | + + + + + + | SQUAMOUS | Moderate (A) | None Seen /LPF | [facility] | | | [facility] | | | [facility] | | | UA | | | [facility] | | | | | | LAB[facility]ATORY | | + + + + + + | TRANSITIONA | Trace (A) | None Seen /HPF | [facility] | | | L | | | [facility] | | | [facility] | | | [facility] | | | UA | | | LABORATORY | | + + + + + + | BACTERIA UA | None Seen | None Seen /HPF | [facility] | | | | | [facility] | | | | [facility] | | | | | | [facility] | | + + + + + + | AMORPHOUS | Moderate (A) | None Seen /HPF | [facility] | | | [facility] | | | [facility] | | | | | [facility] | | | | | | [facility]ORY | | + + + + + + | URINE | Urine Culture Not | | [facility] | | | COMMENT | Indicated | | [facility] | | | | [facility] | | | | | | [facility]ORY | | + + + + + + + + | Specimen | + + | Urine - Urine | | specimen obtained by | | clean catch | | procedure (specimen) | + + + + + + + | Performing | Address | City/State/Zipcode | Phone Number | | Organization | | | | + + + + + | [facility] | [address] | [place] [address] | [phone] | | [facility] | | | | + + + + + XR Chest AP Portable (08/15/2018 8:44 AM PDT) + + | Specimen | + + | | + + + + + | Impressions | Performed At | + + + | IMPRESSION: Patchy bilateral airspace opacities likely representing | [facility] | | an infectious process. Clinical correlation is recommended. | | | Cardiomegaly. Dictated by: Santana Walker Electronically | | | Signed by: Santana Walker on 08/15/2018 8:59 AM | | + + + + + + | Narrative | Performed At | + + + | EXAMINATION: XR CHEST AP PORTABLE HISTORY: ALTERED MENTAL | [facility] | | STATUS COMPARISON STUDY: None FINDINGS: The lungs are mildly | | | hypoventilated. There elevation of the right hemidiaphragm. | | | Patchy bilateral airspace opacities. No pleural effusion. No | | | pneumothorax. Heart is enlarged. No acute osseous process. | | + + + + + | Procedure Note | + + | Demario, Rad Results In - 08/15/2018 9:03 AM PDT EXAMINATION:XR CHEST AP | | PORTABLEHISTORY:ALTERED MENTAL STATUSCOMPARISON STUDY:NoneFINDINGS:The lungs are mildly | | hypoventilated. There elevation of the right hemidiaphragm. Patchy bilateral airspace | | opacities. No pleural effusion. No pneumothorax. Heart is enlarged. No acute osseous | | process.IMPRESSION: IMPRESSION:Patchy bilateral airspace opacities likely representing | | an infectious process. Clinical correlation is recommended.Cardiomegaly.Dictated by: | | Santana Taylorectronically Signed by: Santana Walker on 08/15/2018 8:59 AM | |None | | | |FINDINGS: | |The lungs are mildly hypoventilated. There elevation of the right hemidiaphragm. Patchy b ilateral airspace opacities. No pleural effusion. No pneumothorax. Heart is enlarged. No acute osseous process. | | | |IMPRESSION: | |IMPRESSION: | |Patchy bilateral airspace opacities likely representing an infectious process. Clinical co rrelation is recommended. | |Cardiomegaly. | | | |Dictated by: Santana Walker | | | | | + + + +---------+ + + | Performing | Address | City/State/Zipcode | Phone Number | | Organization | | | | + +---------+ + + | [facility] | | | | + +---------+ + + Ketones, Serum (08/15/2018 8:39 AM PDT) + +-------+ + + + | Component | Value | Ref Range | Performed | Pathologist | | | | | At | Signature | + +-------+ + + + | Acetone, | 0.1 | <0.6 mmol/L | [facility] | | | Serum Quant | | | [facility] | | | | [facility] | | | | | | LAB[facility]ATORY | | + +-------+ + + + + + | Specimen | + + | Blood | + + + + + + + | Performing | Address | City/State/Zipcode | Phone Number | | Organization | | | | + + + + + | [facility] | [address] | [place] [address] | [phone] | | [facility] | | | | + + + + + Blood Gas, Venous (08/15/2018 8:39 AM PDT) + + + + + + | Component | Value | Ref Range | Performed | Pathologist | | | | | At | Signature | + + + + + + | pH, Venous | 7.29 (L) | 7.33 - 7.43 | [facility] | | | | | | [facility] | [facility] | | | | | | [facility] | | + + + + + + | pCO2, | 67 (HH) | 38 - 51 mm Hg | [facility] | | | Venous | | | [facility] | | | | | [facility] | | | | | | LAB[facility]ATORY | | + + + + + + | pO2, Venous | | Reference Range | [facility] | | | | | Not | [facility] | | | | | Established mm | [facility]OS[facility] | | | | | Hg | LABORATORY | | + + + + + + | HCO3, | 32.2 (H) | 17.0 - 28.0 | [facility] | | | Venous | | mmol/L | [facility] | | | | | | [facility] | | | | | | [facility] | | + + + + + + | Base | 4.1 (H) | -3.3 - 1.2 | [facility] | | | Excess, | | mmol/L | [facility] | | | Venous | | | [facility] | | | | | | LAB[facility]ATORY | | + + + + + + | FiO2 | | % | [facility] | | | | | | [facility] | | | | | | [facility] | | | | | | [facility] | | + + + + + + + + | Specimen | + + | Blood | + + + + + + + | Performing | Address | City/State/Zipcode | Phone Number | | Organization | | | | + + + + + | [facility] | [address] | [place] [address] | [phone] | | [facility] | | | | + + + + + TSH, Reflex Free T4 (08/15/2018 8:39 AM PDT) + +-------+ + + + | Component | Value | Ref Range | Performed | Pathologist | | | | | At | Signature | + +-------+ + + + | TSH | 0.58 | 0.36 - 3.74 | [facility] | | | | | uIU/mL | [facility] | | | | | [facility] | | | | | | [facility]ATORY | | + +-------+ + + + + + | Specimen | + + | Blood | + + + + + + + | Performing | Address | City/State/Zipcode | Phone Number | | Organization | | | | + + + + + | [facility] | [address] | [place] [address] | [phone] | | [facility] | | | | + + + + + Lactic Acid (08/15/2018 8:39 AM PDT) + +-------+ + + + | Component | Value | Ref Range | Performed | Pathologist | | | | | At | Signature | + +-------+ + + + | Lactate | 1.2 | 0.4 - 2.1 | [facility] | | | | | mmol/L | [facility] | | | | | [facility] | | | | | | [facility]ATORY | | + +-------+ + + + + + | Specimen | + + | Blood | + + + + + + + | Performing | Address | City/State/Zipcode | Phone Number | | Organization | | | | + + + + + | [facility] | [address] | [place] [address] | [phone] | | [facility] | | | | + + + + + Protime INR (08/15/2018 8:39 AM PDT) + +-------+ + + + | Component | Value | Ref Range | Performed | Pathologist | | | | | At | Signature | + +-------+ + + + | Prothrombin | 10.0 | 9.3 - 11.4 | [facility] | | | Time | | seconds | [facility] | | | | | [facility] | | | | | | [facility]ORY | | + +-------+ + + + | INR | 1.0 | 0.8 - 1.2 | [facility] | | | | | | [facility] | | [facility] | [facility] | | | | | | [facility] | | + +-------+ + + + + + | Specimen | + + | Blood | + + + + + | Narrative | Performed At | + + + | INR Therapeutic Range: INR: 2.0-3.0 CONVENTIONAL ANTICOAGULATION | [facility] | | INR: 2.5-3.5 INTENSIVE ANTICOAGULATION | [facility]OSPITAL | | | LABORATORY | + + + + + + + + | Performing | Address | City/State/Zipcode | Phone Number | | Organization | | | | + + + + + | [facility] | [address] | [place] [address] | [phone] | | [facility] | | | | + + + + + B Type Natriuretic Peptide (08/15/2018 8:39 AM PDT) + + + + + + | Component | Value | Ref Range | Performed | Pathologist | | | | | At | Signature | + + + + + + | NT-proBNP | 1,493 (H) | 0 - 125 pg/mL | [facility] | | | | | [facility] | [facility] | | | | | | [facility] | | + + + + + + + + | Specimen | + + | Blood | + + + + + + + | Performing | Address | City/State/Zipcode | Phone Number | | Organization | | | | + + + + + | [facility] | [address] | [place] [address] | [phone] | | [facility] | | | | + + + + + Troponin I (08/15/2018 8:39 AM PDT) + +-------+ + + + | Component | Value | Ref Range | Performed | Pathologist | | | | | At | Signature | + +-------+ + + + | Troponin I | <0.02 | 0.02 - 0.10 | [facility] | | | | | ng/mL ng/mL | [facility] | | | | | [facility] | | | | | | [facility] | | + +-------+ + + + + + | Specimen | + + | Blood | + + + + + | Narrative | Performed At | + + + | In patients with acute coronary syndromes such as unstable angina or | [facility] | | non-Q wave myocardial infarction, cardiac troponin I levels provide | [facility] | | useful prognostic information and aid in early detection of such | LAB[facility]AT[facility] | | patients with an increased risk of . The Risk Stratification | | | cutpoint for the Troponin I method is 0.1 ng/mL. The diagnostic | | | cutoff point for the diagnosis of [place] is 0.8 ng/mL for the Troponin I | | | method. | | + + + + + + + + | Performing | Address | City/State/Zipcode | Phone Number | | Organization | | | | + + + + + | [facility] | [address] | [place] [address] | [phone] | | [facility] | | | | + + + + + Comprehensive Metabolic Panel (08/15/2018 8:39 AM PDT) + + + + + + | Component | Value | Ref Range | Performed | Pathologist | | | | | At | Signature | + + + + + + | Na | 138 | 132 - 143 | [facility] | | | | | mmol/L | [facility] | [facility] | | [facility] | | | | | | [facility] | | + + + + + + | K | 4.9 | 3.3 - 4.9 | [facility] | | | | | mmol/L | [facility] | [facility] | | | | | | [facility] | | + + + + + + | Cl | 101 | 95 - 108 mmol/L | [facility] | | | | | [facility] | | | | | | [facility] | | + + + + + + | CO2 | 31 | 23 - 34 mmol/L | [facility] | | | | [facility] | | | | | | [facility] | | + + + + + + | Anion Gap | 6 (L) | 7 - 16 mmol/L | [facility] | | | [facility] | | | | | | [facility] | | + + + + + + | Glucose | 209 (H) | 70 - 110 mg/dL | [facility] | | | | | [facility] | | | | [facility] | | | | | | [facility] | | + + + + + + | BUN | 29 (H) | 5 - 26 mg/dL | [facility] | | | | | [facility] | | | | | | [facility] | | + + + + + + | Creatinine | 1.20 | 0.60 - 1.30 | [facility] | | | | | mg/dL | [facility] | | | | | [facility] | | | | | | [facility] | | + + + + + + | eGFR if not | 48 (L)Comment: | >=60 | [facility] | | | | GLOMERULAR FILTRATION | mL/min/1.73m2 | [facility] | | | [place] | RATE,ESTIMATED | | [facility] | | | | mL/min/1.48j9Smwj than | | LABORATORY | | | | 60 Chronic kidney | | | | | | disease,if found over a | | | | | | 3-month period.Less than | | | | | | 15 Kidney failureFor | | | | | | | | | | | | Americans,multiply the | | | | | | calculated GFR by 1.21. | | | | | | | | | | + + + + + + | Calcium | 8.8 | 8.3 - 10.0 | [facility] | | | | | mg/dL | [facility] | | | | | | [facility] | | + + + + + + | Albumin | 3.1 | 3.0 - 4.5 g/dL | [facility] | | | | | [facility] | | | | | | [facility] | | + + + + + + | Bilirubin | 0.3 | 0.0 - 1.2 mg/dL | [facility] | | | Total | | | [facility] | [facility] | | | | | | [facility] | | + + + + + + | Total | 6.2 (L) | 6.6 - 8.5 g/dL | [facility] | | | Protein | | | [facility] | [facility] | [facility] | | | | | | [facility] | | + + + + + + | AST | 11 | 0 - 38 U/L | [facility] | | | | | [facility] | | | | | | [facility] | | + + + + + + | ALT | 14 | 14 - 59 U/L | [facility] | | | | | [facility] | | | | | | [facility] | | + + + + + + | Alkaline | 90 | 46 - 116 U/L | [facility] | | | Phosphatase | | | [facility] | [facility] | | | | | | LAB[facility]ORY | | + + + + + + | Globulin | 3.1 | 2.4 - 4.5 g/dL | [facility] | | | | | [facility] | [facility] | | | | | | [facility] | | + + + + + + | Albumin/Rylie | 1.0 | 0.8 - 2.0 | [facility] | | | bulin Ratio | | | [facility] | | | | | | [facility] | | + + + + + + | BUN/Creatin | 24.2 (H) | 7.0 - 24.0 | [facility] | | | ine Ratio | | | [facility] | [facility] | | | | | | [facility] | | + + + + + + + + | Specimen | + + | Blood | + + + + + + + | Performing | Address | City/State/Zipcode | Phone Number | | Organization | | | | + + + + + | [facility] | [address] | [place] [address] | [phone] | | [facility] | | | | + + + + + CBC with Differential (08/15/2018 8:39 AM PDT) + + + + + + | Component | Value | Ref Range | Performed | Pathologist | | | | | At | Signature | + + + + + + | WBC | 3.7 (L) | 4.3 - 10.4 K/uL | [facility] | | | | | [facility] | | | | | | [facility] | | + + + + + + | RBC | 3.28 (L) | 4.12 - 5.30 | [facility] | | | | | M/uL | [facility] | | | | | | [facility] | | + + + + + + | Hemoglobin | 9.9 (L) | 12.4 - 15.7 | [facility] | | | | | g/dL | [facility] | | | | | | [facility] | | + + + + + + | Hematocrit | 31.9 (L) | 37.7 - 47.0 % | [facility] | | | | | [facility] | | | | | | [facility] | | + + + + + + | MCV | 97.3 (H) | 82.0 - 97.0 fL | [facility] | | | | | [facility] | | | | | | [facility] | | + + + + + + | MCH | 30.2 | 27.1 - 32.3 pg | [facility] | | | | | [facility] | | | | | | [facility] | | + + + + + + | MCHC | 31.0 (L) | 32.0 - 36.9 | [facility] | | | | | g/dL | [facility] | | | | | | [facility] | | + + + + + + | RDW-CV | 22.7 (H) | 0.0 - 17.0 % | [facility] | | | | | [facility] | | | | | | [facility] | | + + + + + + | Platelet | 232 | 150 - 450 K/uL | [facility] | | | Count | | | [facility] | | | | | | [facility] | | + + + + + + | MPV | 11.0 | 9.4 - 12.3 fL | [facility] | | | | | [facility] | | | | | | [facility] | | + + + + + + | % | 49.2 | 42.0 - 76.0 % | [facility] | | | Neutrophils | | | [facility] | | | | | | [facility] | | + + + + + + | % | 31.4 | 20.0 - 40.0 % | [facility] | | | Lymphocytes | | | [facility] | | | | | | [facility] | | + + + + + + | % Monocytes | 15.3 (H) | 3.0 - 13.0 % | [facility] | | | | | [facility] | | | | | | [facility] | | + + + + + + | % | 3.6 | 0.0 - 7.0 % | [facility] | | | Eosinophils | | | [facility] | [facility] | | | | | | [facility] | | + + + + + + | % Basophils | 0.5 | 0.0 - 2.0 % | [facility] | | | | | [facility] | [facility] | | | | | | [facility] | | + + + + + + | % Immature | 0.0 | 0.0 - 0.5 % | [facility] | | | Granulocyte | | | [facility] | | | s | | | [facility] | | | | | | LAB[facility]ATORY | | + + + + + + | Absolute | 1.80 (L) | 2.50 - 8.50 | [facility] | | | Neutrophils | | K/uL | [facility] | | | | | | [facility] | | + + + + + + | Absolute | 1.15 | 1.00 - 3.80 | [facility] | | | Lymphocytes | | K/uL | [facility] | | | | | | [facility] | | + + + + + + | Absolute | 0.56 | 0.00 - 0.80 | [facility] | | | Monocytes | | K/uL | [facility] | | | | | | [facility] | | + + + + + + | Absolute | 0.13 | 0.00 - 0.70 | [facility] | | | Eosinophils | | K/uL | [facility] | | | | | | [facility] | | + + + + + + | Absolute | 0.02 | 0.00 - 0.20 | [facility] | | | Basophils | | K/uL | [facility] | | | | | | [facility] | | + + + + + + | Absolute | 0.00 | 0.00 - 0.15 | [facility] | | | Immature | | K/uL | [facility] | | Granulocyte | | [facility] | | | s | | | LAB[facility]ATORY | | + + + + + + | % nRBC | 1 (H) | <=0 per 100 | [facility] | | | | WBCs | [facility] | | | | | | [facility] | | + + + + + + | Absolute | 0.03 (H) | 0.00 - 0.01 | [facility] | | | nRBC | | K/uL | [facility] | | | | | | [facility] | | + + + + + + + + | Specimen | + + | Blood | + + + + + | Narrative | Performed At | + + + | Few Macrocytes, Few Microcytes, Slight Hypochromia. | [facility] | [facility] | | | [facility] | + + + + + + + + | Performing | Address | City/State/Zipcode | Phone Number | | Organization | | | | + + + + + | [facility] | [address] | [place] [address] | [phone] | | [facility] | | | | + + + + + documented in this encounter Visit Diagnoses + + | Diagnosis | + + | Pneumonia - Primary Pneumonia, organism unspecified | + + | Acute respiratory failure with hypoxia and hypercapnia (HCC) | + + | Pneumonia of both lungs due to infectious organism, unspecified part of lung | + + | Acute metabolic encephalopathy | + + | Acute renal failure with other specified pathological lesion in kidney (HCC) | + + | Acute respiratory failure (HCC) Acute respiratory failure | + + | COPD exacerbation (HCC) Obstructive chronic bronchitis with exacerbation | + + | Hypertension Unspecified essential hypertension | + + | Type II diabetes mellitus (HCC) Type II or unspecified type diabetes mellitus without | | mention of complication, not stated as uncontrolled | + + documented in this encounter Administered Medications + +--------+ +--------+------+------+ | Medication Order | MAR | Action | Dose | Rate | Site | | | Action | Date | | | | + +--------+ +--------+------+------+ | albuterol 2.5 mg/3 mL nebulizer | Given | 08/18/19 | 2.5 mg | | | | solution 2.5 mg 2.5 mg, | | 19 2:26 | | | | | Nebulization, RT EVERY 2 HOURS | | AM PDT | | | | | PRN, Shortness of Breath, | | | | | | | Starting 08/15/18 at 1412, RT | | | | | | | will administer., | | | | | | + +--------+ +--------+------+------+ +-------+ +--------+---+---+ | Given | 08/17/19 | 2.5 mg | | | | | 19 8:37 | | | | | | PM PDT | | | | +-------+ +--------+---+---+ | Given | 08/17/19 | 2.5 mg | | | | | 19 3:06 | | | | | | AM PDT | | | | +-------+ +--------+---+---+ +---+---+ | | | +---+---+ + +-------+ +-------+---+---+ | albuterol-ipratropium 2.5-0.5 | Given | 08/20/19 | 3 mLs | | | | mg/3 mL nebulizer solution 3 mL | | 19 3:12 | | | | | 3 mL, Nebulization, RT Q6H, First | | AM PDT | | | | | dose on Wed08/15/18 at 1500 | | | | | | + +-------+ +-------+---+---+ +-------+ +-------+---+---+ | Given | 08/19/19 | 3 mLs | | | | | 19 9:59 | | | | | | PM PDT | | | | +-------+ +-------+---+---+ | Given | 08/19/19 | 3 mLs | | | | | 19 3:31 | | | | | | PM PDT | | | | +-------+ +-------+---+---+ +---+---+ | | | +---+---+ + +-------+ +-------+---+---+ | aspirin EC tablet 81 mg 81 mg, | Given | 08/20/19 | 81 mg | | | | Oral, DAILY, First dose on Wed | | 19 8:25 | | | | | 08/18/18 at 1030, Do not cut or | | AM PDT | | | | | crush., | | | | | | + +-------+ +-------+---+---+ +-------+ +-------+---+---+ | Given | 08/19/19 | 81 mg | | | | | 19 10:55 | | | | | | AM PDT | | | | +-------+ +-------+---+---+ +---+---+ | | | +---+---+ + +-------+ +------+---+---+ | buprenorphine (SUBUTEX) SL | Given | 08/20/19 | 2 mg | | | | tablet 2 mg 2 mg, Sublingual, | | 19 11:58 | | | | | DAILY, First dose on Wed08/18/18 | | AM PDT | | | | | at 1430, Do not swallow tablet. | | | | | | | Formulary substitution for | | | | | | | Butrans transdermal patch | | | | | | | 20mcg/hr, | | | | | | + +-------+ +------+---+---+ +-------+ +------+---+---+ | Given | 08/19/19 | 2 mg | | | | | 19 2:33 | | | | | | PM PDT | | | | +-------+ +------+---+---+ +---+---+ | | | +---+---+ + +-------+ +-------+---+---+ | busPIRone (BUSPAR) tablet 10 mg | Given | 08/20/19 | 10 mg | | | | 10 mg, Oral, EVERY MORNING, | | 19 8:26 | | | | | First dose on [facility]idgette 08/18/18 at 1030 | | AM PDT | | | | + +-------+ +-------+---+---+ +-------+ +-------+---+---+ | Given | 08/19/19 | 10 mg | | | | | 19 10:55 | | | | | | AM PDT | | | | +-------+ +-------+---+---+ +---+---+ | | | +---+---+ + +-------+ +-------+---+---+ | busPIRone (BUSPAR) tablet 20 mg | Given | 08/19/19 | 20 mg | | | | 20 mg, Oral, DAILY EVENING, | | 19 5:19 | | | | | First dose on Bridgette 08/18/18 at 1800 | | PM PDT | | | | + +-------+ +-------+---+---+ +---+---+ | | | +---+---+ + +-------+ + +---+---+ | calcium carbonate (TUMS) | Given | 08/19/19 | 1,000 mg | | | | chewable tablet 1,000 mg 1,000 | | 19 8:52 | | | | | mg, Oral, EVERY 4 HOURS PRN, | | PM PDT | | | | | Indigestion, Starting 08/15/18 | | | | | | | at 1412 | | | | | | + +-------+ + +---+---+ +-------+ + +---+---+ | Given | 08/18/19 | 1,000 mg | | | | | 19 8:40 | | | | | | PM PDT | | | | +-------+ + +---+---+ | Given | 08/18/19 | 1,000 mg | | | | | 19 4:21 | | | | | | PM PDT | | | | +-------+ + +---+---+ +---+---+ | | | +---+---+ + +---------+ +-----+-------+---+ | cefTRIAXone in dextrose | New Bag | 08/20/19 | 1 g | 100 | | | (ROCEPHIN) IVPB 1 g 1 g, | | 19 11:54 | | mL/hr | | | Intravenous, Administer over 30 | | AM PDT | | | | | Minutes, EVERY 24 HOURS (Daily), | | | | | | | First dose on Wed08/15/18 at | | | | | | | 1430, Indications: Community | | | | | | | Acquired Pneumonia | | | | | | + +---------+ +-----+-------+---+ +---------+ +-----+-------+---+ | New Bag | 08/19/19 | 1 g | 100 | | | | 19 2:33 | | mL/hr | | | | PM PDT | | | | +---------+ +-----+-------+---+ | New Bag | 08/18/19 | 1 g | 100 | | | | 19 2:25 | | mL/hr | | | | PM PDT | | | | +---------+ +-----+-------+---+ +---+---+ | | | +---+---+ + +---------+ +---------+---+ + | cloNIDine (CATAPRES) 0.2 mg/24 | Patch | 08/17/19 | 1 patch | | Shoulder | | hr 1 patch 1 patch, Transdermal, | Applied | 19 9:40 | | | -Right | | WEEKLY, First dose on Wed | | AM PDT | | | | | 08/16/18 at 0900 | | | | | | + +---------+ +---------+---+ + + +---+ | | | + +---+ | cloNIDine (CATAPRES) 0.2 mg/24 | | | hr 1 patch 1 patch, Transdermal, | | | WEEKLY, First dose on Wed08/23/18 | | | at 0900 | | + +---+ | | | + +---+ + + + + +-------+---+ | dexmedetomidine in saline | Rate/Dos | 08/18/19 | 0.2 | 5.3 | | | (PRECEDEX) 4 mcg/mL infusion | e Change | 19 11:03 | mcg/kg/h | mL/hr | | | 0.2-0.7 mcg/kg/hr | | AM PDT | r | | | | 105.5 kg (5.275-18.4625 mL/hr, | | | | | | | rounded to 5.3-18.5 mL/hr), at | | | | | | | 5.3-18.5 mL/hr, Intravenous, | | | | | | | TITRATED, Starting 08/17/18 at | | | | | | | 0845, Titration Instruction: See | | | | | | | below, Goal: RASS -2 to 0, | | | | | | | Initial dose: 0.2 mcg/kg/hr, | | | | | | | Increase rate by: 0.2 mcg/kg/hr | | | | | | | every 30 minutes., Decrease rate | | | | | | | by: 0.2 mcg/kg/hr every 30 | | | | | | | minutes., *: Titrate drug per | | | | | | | order as tolerated. Titration may | | | | | | | vary based on the patient | | | | | | | | | | | | | | s critical condition. | | | | | | + + + + +-------+---+ + + + +-------+---+ | Rate/Dose Change | 08/18/19 | 0.6 | 15.8 | | | | 19 9:49 | mcg/kg/h | mL/hr | | | | AM PDT | r | | | + + + +-------+---+ | Rate/Dose Change | 08/18/19 | 0.4 | 10.6 | | | | 19 8:56 | mcg/kg/h | mL/hr | | | | AM PDT | r | | | + + + +-------+---+ +---+---+ | | | +---+---+ + +-------+ +-------+---+ + | enoxaparin (LOVENOX) 40 mg/0.4 | Given | 08/20/19 | 40 mg | | Abdomen- | | mL injection 40 mg 40 mg, | | 19 8:25 | | | LLQ | | Subcutaneous, EVERY 24 HOURS | | AM PDT | | | | | (Daily), First dose on Mon | | | | | | | 08/15/18 at 1430 | | | | | | + +-------+ +-------+---+ + +-------+ +-------+---+ + | Given | 08/19/19 | 40 mg | | Abdomen- | | | 19 8:35 | | | RLQ | | | AM PDT | | | | +-------+ +-------+---+ + | Given | 08/18/19 | 40 mg | | Abdomen- | | | 19 9:07 | | | LLQ | | | AM PDT | | | | +-------+ +-------+---+ + +---+---+ | | | +---+---+ + +-------+ +-------+---+---+ | famotidine (PEPCID) injection | Given | 08/19/19 | 20 mg | | | | 20 mg 20 mg, Intravenous, | | 19 8:17 | | | | | TIMES DAILY, First dose on Mon | | AM PDT | | | | | 08/15/18 at 2100, Dilute 2 mL of | | | | | | | famotidine with 8 mL of normal | | | | | | | saline to a final concentration | | | | | | | of 2 mg/mL. Administer ordered | | | | | | | dose over a period of at least 2 | | | | | | | minutes., | | | | | | + +-------+ +-------+---+---+ +-------+ +-------+---+---+ | Given | 08/18/19 | 20 mg | | | | | 19 8:43 | | | | | | PM PDT | | | | +-------+ +-------+---+---+ | Given | 08/18/19 | 20 mg | | | | | 19 9:07 | | | | | | AM PDT | | | | +-------+ +-------+---+---+ +---+---+ | | | +---+---+ + + + +--------+---------+---+ | fentaNYL (PF) 5 mcg/mL in | Rate/Dos | 08/18/19 | 25 | 5 mL/hr | | | sodium chloride 0.9% 250 mL | e Change | 19 9:11 | mcg/hr | | | | infusion 25-250 mcg/hr (5-50 | | AM PDT | | | | | mL/hr), at 5-50 mL/hr, | | | | | | | Intravenous, TITRATED, Starting | | | | | | | 08/15/18 at 1800, Titration | | | | | | | Instruction: See below, Goal: | | | | | | | Pain score (NRS) less than 6, | | | | | | | Initial dose: 25 mcg/hr, Increase | | | | | | | rate by: 25 mcg/hr every 30 | | | | | | | minutes., Decrease rate by: 25 | | | | | | | mcg/hr every 30 minutes., *: | | | | | | | Titrate drug per order as | | | | | | | tolerated. Titration may vary | | | | | | | based on the patient | | | | | | | | | | | | | | s critical condition. | | | | | | + + + +--------+---------+---+ + + +--------+ +---+ | New Bag | 08/17/19 | 50 | 10 mL/hr | | | | 19 9:32 | mcg/hr | | | | | PM PDT | | | | + + +--------+ +---+ | Rate/Dose Change | 08/17/19 | 50 | 10 mL/hr | | | | 19 9:44 | mcg/hr | | | | | AM PDT | | | | + + +--------+ +---+ + +---+ | | | + +---+ | haloperidol lactate (HALDOL) 5 | | | mg/mL injection Starting Mon | | | 08/15/18 at 1603, For 1 dose, | | | WILLIAN WYNN: laura | | | override, | | + +---+ | | | + +---+ + +-------+ +--------+---+---+ | haloperidol lactate (HALDOL) | Given | 08/16/19 | 2.5 mg | | | | injection 2-5 mg 2-5 mg, | | 19 4:05 | | | | | Intravenous, EVERY 4 HOURS PRN, | | PM PDT | | | | | Agitation, Starting 08/15/18 | | | | | | | at 1600 | | | | | | + +-------+ +--------+---+---+ +---+---+ | | | +---+---+ + +-------+ +-------+---+---+ | hydrALAZINE (APRESOLINE) | Given | 08/19/19 | 10 mg | | | | injection 10 mg 10 mg, | | 19 1:20 | | | | | Intravenous, EVERY 4 HOURS PRN, | | AM PDT | | | | | SBP >160, Starting 08/17/18 at | | | | | | | 0817 | | | | | | + +-------+ +-------+---+---+ +-------+ +-------+---+---+ | Given | 08/18/19 | 10 mg | | | | | 19 8:50 | | | | | | PM PDT | | | | +-------+ +-------+---+---+ | Given | 08/18/19 | 10 mg | | | | | 19 3:13 | | | | | | PM PDT | | | | +-------+ +-------+---+---+ +---+---+ | | | +---+---+ + +-------+ +---------+---+ + | insulin lispro (humaLOG) | Given | 08/20/19 | 1 Units | | Arm-Righ | | injection (vial) 0-6 Units 0-6 | | 19 11:53 | | | t Upper | | Units, Subcutaneous, 4 TIMES | | AM PDT | | | | | DAILY WITH MEALS & NIGHTLY, First | | | | | | | dose on Wed08/16/18 at 0845, | | | | | | | CORRECTION SCALE: Blood Glucose | | | | | | | (BG) < 150: None BG | | | | | | | 150-200: DAY: 1 units. NIGHT: 0 | | | | | | | units BG 201-250: DAY: 2 | | | | | | | units. NIGHT: 1 units BG | | | | | | | 251-300: DAY: 3 units. NIGHT: 2 | | | | | | | units BG 301-350: DAY: 4 units. | | | | | | | NIGHT: 3 units BG 351-400: | | | | | | | DAY: 5 units. NIGHT: 4 units | | | | | | | BG > 400 : DAY: 6 units. | | | | | | | NIGHT: 5 units | | | | | | | AND CALL PROVIDER Use DAY | | | | | | | DOSE for doses scheduled: | | | | | | | AC, NPO, Daytime [id number] Use | | | | | | | NIGHT DOSE for doses scheduled: | | | | | | | HS, 3AM, Nighttime [id number] | | | | | | | If the BG is not checked before | | | | | | | the patient starts eating, do not | | | | | | | give correction insulin. If HS | | | | | | | insulin given, check blood | | | | | | | glucose at 3AM. Only for use with | | | | | | | U-100 insulin syringe., | | | | | | + +-------+ +---------+---+ + +-------+ +---------+---+ + | Given | 08/20/19 | 1 Units | | Arm-Left | | | 19 7:58 | | | Upper | | | AM PDT | | | | +-------+ +---------+---+ + | Given | 08/19/19 | 3 Units | | Arm-Righ | | | 19 5:16 | | | t Upper | | | PM PDT | | | | +-------+ +---------+---+ + +---+---+ | | | +---+---+ + +-------+ +-------+---+---+ | labetalol (TRANDATE) 5 mg/mL | Given | 08/19/19 | 10 mg | | | | injection 10 mg 10 mg, | | 19 8:16 | | | | | Intravenous, EVERY 4 HOURS PRN, | | AM PDT | | | | | HTN, Starting 08/15/18 at | | | | | | | 2120, For systolic blood pressure | | | | | | | greater than 180., | | | | | | + +-------+ +-------+---+---+ +-------+ +-------+---+---+ | Given | 08/18/19 | 10 mg | | | | | 19 11:35 | | | | | | AM PDT | | | | +-------+ +-------+---+---+ | Given | 08/18/19 | 10 mg | | | | | 19 6:16 | | | | | | AM PDT | | | | +-------+ +-------+---+---+ +---+---+ | | | +---+---+ + +-------+ +---------+---+---+ | levothyroxine (SYNTHROID) | Given | 08/20/19 | 400 mcg | | | | tablet 400 mcg 400 mcg, Oral, | | 19 7:58 | | | | | DAILY BEFORE BREAKFAST, First | | AM PDT | | | | | dose on [facility] 08/18/18 at 1030, Give | | | | | | | before breakfast., | | | | | | + +-------+ +---------+---+---+ +-------+ +---------+---+---+ | Given | 08/19/19 | 400 mcg | | | | | 19 10:54 | | | | | | AM PDT | | | | +-------+ +---------+---+---+ +---+---+ | | | +---+---+ + +-------+ +------+---+---+ | LORazepam (ATIVAN) 2 mg/mL | Given | 08/19/19 | 2 mg | | | | injection 2 mg 2 mg, | | 19 3:20 | | | | | Intravenous, EVERY 2 HOURS PRN, | | AM PDT | | | | | Anxiety, Starting 08/15/18 at | | | | | | | 1600 | | | | | | + +-------+ +------+---+---+ +-------+ +------+---+---+ | Given | 08/19/19 | 1 mg | | | | | 19 1:21 | | | | | | AM PDT | | | | +-------+ +------+---+---+ +---+---+ | | | +---+---+ + +-------+ +--------+---+---+ | LORazepam (ATIVAN) tablet 0.5 | Given | 08/19/19 | 0.5 mg | | | | mg 0.5 mg, Oral, ONCE, Bridgette | | 19 12:10 | | | | | 08/18/18 at 0015, For 1 dose | | AM PDT | | | | + +-------+ +--------+---+---+ +---+---+ | | | +---+---+ + +---------+ +-----+ +---+ | magnesium sulfate 2 g/50 mL | New Bag | 08/17/19 | 2 g | 25 mL/hr | | | IVPB 2 g 2 g, Intravenous, | | 19 8:58 | | | | | Administer over 120 Minutes, | | AM PDT | | | | | ONCE, Tu 08/16/18 at 0845, For 1 | | | | | | | dose, Maximum recommended | | | | | | | infusion rate = 1 gram/hour., | | | | | | + +---------+ +-----+ +---+ +---+---+ | | | +---+---+ + +---------+ +-----+ +---+ | magnesium sulfate 2 g/50 mL | New Bag | 08/18/19 | 2 g | 25 mL/hr | | | IVPB 2 g 2 g, Intravenous, | | 19 9:07 | | | | | Administer over 120 Minutes, | | AM PDT | | | | | ONCE, [facility] 08/17/18 at 0900, For 1 | | | | | | | dose, Maximum recommended | | | | | | | infusion rate = 1 gram/hour., | | | | | | + +---------+ +-----+ +---+ +---+---+ | | | +---+---+ + +---------+ +-----+ +---+ | magnesium sulfate 2 g/50 mL | New Bag | 08/19/19 | 2 g | 25 mL/hr | | | IVPB 2 g 2 g, Intravenous, | | 19 6:54 | | | | | Administer over 120 Minutes, PRN, | | AM PDT | | | | | Per protocol, Starting Wed | | | | | | | 08/17/18 at 0834, ICU Use Only | | | | | | | Protocol NOT recommended if Scr > | | | | | | | 1.8, dialysis patients or CrCl < | | | | | | | 50 mL/min Magnesium = 1-1.9 | | | | | | | mg/dL Give magnesium sulfate 2 | | | | | | | g IV x1 * Check magnesium 2 | | | | | | | hours after infusion is completed | | | | | | | If magnesium still < 1.9 | | | | | | | mg/dL,replace as indicated per | | | | | | | protocol Maximum recommended | | | | | | | infusion rate = 1 gram/hour., | | | | | | + +---------+ +-----+ +---+ +---+---+ | | | +---+---+ + +---------+ +-----+ +---+ | magnesium sulfate 2 g/50 mL | New Bag | 08/20/19 | 2 g | 25 mL/hr | | | IVPB 2 g 2 g, Intravenous, | | 19 8:25 | | | | | Administer over 120 Minutes, | | AM PDT | | | | | ONCE, Wed08/19/18 at 0830, For 1 | | | | | | | dose, Maximum recommended | | | | | | | infusion rate = 1 gram/hour., | | | | | | + +---------+ +-----+ +---+ +---+---+ | | | +---+---+ + +-------+ + +---+---+ | metFORMIN (GLUCOPHAGE) tablet | Given | 08/20/19 | 1,000 mg | | | | 1,000 mg 1,000 mg, Oral, 2 TIMES | | 19 8:25 | | | | | DAILY WITH BREAKFAST & DINNER, | | AM PDT | | | | | First dose on Bridgette 08/18/18 at 1030, | | | | | | | Follow hospital guidelines to | | | | | | | determine if metFORMIN should be | | | | | | | held following procedures using | | | | | | | IV iodinated contrast., | | | | | | + +-------+ + +---+---+ +-------+ + +---+---+ | Given | 08/19/19 | 1,000 mg | | | | | 19 5:19 | | | | | | PM PDT | | | | +-------+ + +---+---+ | Given | 08/19/19 | 1,000 mg | | | | | 19 10:55 | | | | | | AM PDT | | | | +-------+ + +---+---+ +---+---+ | | | +---+---+ + +-------+ +-------+---+---+ | methylPREDNISolone sodium | Given | 08/19/19 | 60 mg | | | | succinate (solu-MEDROL) 62.5 | | 19 6:30 | | | | | mg/mL injection 60 mg 60 mg, | | AM PDT | | | | | Intravenous, EVERY 8 HOURS (3 | | | | | | | times per day), First dose on Mon | | | | | | | 08/15/18 at 2200, Mix with 2 mL | | | | | | | provided diluent to make 62.5 | | | | | | | mg/mL., | | | | | | + +-------+ +-------+---+---+ +-------+ +-------+---+---+ | Given | 08/18/19 | 60 mg | | | | | 19 9:26 | | | | | | PM PDT | | | | +-------+ +-------+---+---+ | Given | 08/18/19 | 60 mg | | | | | 19 2:24 | | | | | | PM PDT | | | | +-------+ +-------+---+---+ +---+---+ | | | +---+---+ + +-------+ +------+---+---+ | naloxone (NARCAN) 1 mg/mL | Given | 08/16/19 | 2 mg | | | | injection 2 mg 2 mg, | | 19 8:39 | | | | | Intravenous, ONCE, 08/15/18 at | | AM PDT | | | | | 0900, For 1 dose | | | | | | + +-------+ +------+---+---+ +---+---+ | | | +---+---+ + +-------+ +---+---+---+ | nystatin (MYCOSTATIN) powder | Given | 08/20/19 | | | | | Topical, 2 TIMES DAILY, First | | 19 8:27 | | | | | dose on Wed08/16/18 at 0900, | | AM PDT | | | | | Sprinkle powder on affected | | | | | | | area., | | | | | | + +-------+ +---+---+---+ +-------+ +---+---+---+ | Given | 08/19/19 | | | | | | 19 9:02 | | | | | | PM PDT | | | | +-------+ +---+---+---+ | Given | 08/19/19 | | | | | | 19 8:36 | | | | | | AM PDT | | | | +-------+ +---+---+---+ +---+---+ | | | +---+---+ + +-------+ +------+---+---+ | oxyCODONE (ROXICODONE) tablet | Given | 08/20/19 | 5 mg | | | | 5-15 mg 5-15 mg, Oral, EVERY 3 | | 19 10:54 | | | | | HOURS PRN, Pain, Starting Mon | | AM PDT | | | | | 08/15/18 at 1412, If ineffective | | | | | | | or not tolerated, contact | | | | | | | prescriber, | | | | | | + +-------+ +------+---+---+ +-------+ +------+---+---+ | Given | 08/19/19 | 5 mg | | | | | 19 8:59 | | | | | | PM PDT | | | | +-------+ +------+---+---+ | Given | 08/19/19 | 5 mg | | | | | 19 8:35 | | | | | | AM PDT | | | | +-------+ +------+---+---+ +---+---+ | | | +---+---+ + +-------+ +-------+---+---+ | pantoprazole (PROTONIX) DR | Given | 08/20/19 | 40 mg | | | | tablet 40 mg 40 mg, Oral, DAILY | | 19 7:58 | | | | | BEFORE BREAKFAST, First dose on | | AM PDT | | | | | 08/19/18 at 0730, Indication: | | | | | | | GERD | | | | | | + +-------+ +-------+---+---+ +---+---+ | | | +---+---+ + +-------+ +-------+---+---+ | perflutren lipid microspheres | Given | 08/17/19 | 2 mLs | | | | (DEFINITY) injection 2 mL 2 mL, | | 19 1:41 | | | | | Intravenous, ONCE PRN, Other, | | PM PDT | | | | | Starting 08/16/18 at 1341, For | | | | | | | 1 dose, Echo | | | | | | + +-------+ +-------+---+---+ +---+---+ | | | +---+---+ + +---------+ +---------+-------+---+ | piperacillin-tazobactam (ZOSYN) | New Bag | 08/16/19 | 3.375 g | 200 | | | 3.375 g in sodium chloride 0.9% | | 19 11:15 | | mL/hr | | | 100 mL IVPB 3.375 g, | | AM PDT | | | | | Intravenous, Administer over 0.5 | | | | | | | Hours, ONCE, 08/15/18 at 1015, | | | | | | | For 1 dose, Activate system and | | | | | | | mix before use., Indications: | | | | | | | Pneumonia | | | | | | + +---------+ +---------+-------+---+ +---+---+ | | | +---+---+ + +-------+ +--------+---+---+ | polyvinyl alcohol (LIQUITEARS) | Given | 08/19/19 | 1 drop | | | | 1.4% ophthalmic solution 1 drop | | 19 12:11 | | | | | 1 drop, Both Eyes, EVERY 1 HOUR | | AM PDT | | | | | PRN, Dry Eyes, Starting Wed | | | | | | | 08/17/18 at 2353 | | | | | | + +-------+ +--------+---+---+ +---+---+ | | | +---+---+ + +-------+ +-------+---+---+ | predniSONE (DELTASONE) tablet | Given | 08/20/19 | 60 mg | | | | 60 mg 60 mg, Oral, DAILY, First | | 19 8:26 | | | | | dose on [facility] 08/18/18 at 1100 | | AM PDT | | | | + +-------+ +-------+---+---+ +-------+ +-------+---+---+ | Given | 08/19/19 | 60 mg | | | | | 19 11:19 | | | | | | AM PDT | | | | +-------+ +-------+---+---+ +---+---+ | | | +---+---+ + +-------+ +--------+---+---+ | pregabalin (LYRICA) capsule 150 | Given | 08/20/19 | 150 mg | | | | mg 150 mg, Oral, 2 TIMES DAILY, | | 19 8:26 | | | | | First dose on [facility] 08/18/18 at 1030 | | AM PDT | | | | + +-------+ +--------+---+---+ +-------+ +--------+---+---+ | Given | 08/19/19 | 150 mg | | | | | 19 8:53 | | | | | | PM PDT | | | | +-------+ +--------+---+---+ | Given | 08/19/19 | 150 mg | | | | | 19 10:55 | | | | | | AM PDT | | | | +-------+ +--------+---+---+ +---+---+ | | | +---+---+ + +-------+ +--------+---+---+ | propofol (DIPRIVAN) injection | Given | 08/16/19 | 200 mg | | | | Intravenous, PRN, Starting Mon | | 19 5:03 | | | | | 08/15/18 at 1703 | | PM PDT | | | | + +-------+ +--------+---+---+ +---+---+ | | | +---+---+ + + + + +---------+---+ | propofol infusion (DIPRIVAN) 10 | Rate/Dos | 08/18/19 | 10 | 6 mL/hr | | | mg/mL infusion 5-100 mcg/kg/min | e Change | 19 9:12 | mcg/kg/m | | | | | | AM PDT | in | | | | 99.9 kg (2.997-59.94 mL/hr, | | | | | | | rounded to 3-59.9 mL/hr), at | | | | | | | 3-59.9 mL/hr, Intravenous, | | | | | | | TITRATED, Starting 08/15/18 at | | | | | | | 1815, Shake well. Do not filter. | | | | | | | Expires 12 hours after spiked., | | | | | | | Titration Instruction: See below, | | | | | | | Goal: RASS -2 to 0, Initial | | | | | | | dose: 20 mcg/kg/min, Increase | | | | | | | rate by: 10 mcg/kg/min every 5 | | | | | | | minutes., Decrease rate by: 10 | | | | | | | mcg/kg/min every 5 minutes., *: | | | | | | | Titrate drug per order as | | | | | | | tolerated. Titration may vary | | | | | | | based on the patient | | | | | | | | | | | | | | s critical condition. | | | | | | + + + + +---------+---+ + + + + +---+ | Rate/Dose Change | 08/18/19 | 20 | 12 mL/hr | | | | 19 8:58 | mcg/kg/m | | | | | AM PDT | in | | | + + + + +---+ | Rate/Dose Change | 08/18/19 | 40 | 24 mL/hr | | | | 19 6:27 | mcg/kg/m | | | | | AM PDT | in | | | + + + + +---+ + +---+ | | | + +---+ | propofol infusion (DIPRIVAN) 10 | | | mg/mL Starting Wed08/15/18 at | | | 1723, For 1 dose, WILLIAN WYNN | | | B.: laura diallo, | | + +---+ | | | + +---+ + +-------+ +-------+---+---+ | rocuronium (ZEMURON) injection | Given | 08/16/19 | 40 mg | | | | PRN, Starting Wed08/15/18 at | | 19 5:03 | | | | | 1703 | | PM PDT | | | | + +-------+ +-------+---+---+ +---+---+ | | | +---+---+ + +-------+ +--------+---+---+ | senna (SENOKOT) tablet 8.6 mg | Given | 08/19/19 | 8.6 mg | | | | 8.6 mg, Oral, 2 TIMES DAILY PRN, | | 19 12:16 | | | | | Constipation, Starting Mon | | AM PDT | | | | | 08/15/18 at 1412, If docusate | | | | | | | ineffective or not ordered., | | | | | | + +-------+ +--------+---+---+ +---+---+ | | | +---+---+ + +---------+ +--------+-------+---+ | sodium chloride 0.9% (NS) bolus | New Bag | 08/16/19 | 1,000 | 1000 | | | 1,000 mL 1,000 mL, Intravenous, | | 19 8:50 | mLs | mL/hr | | | Administer over 1 Hours, ONCE, | | AM PDT | | | | | 08/15/18 at 0900, For 1 dose | | | | | | + +---------+ +--------+-------+---+ +---+---+ | | | +---+---+ + +---------+ +--------+-------+---+ | sodium chloride 0.9% (NS) bolus | New Bag | 08/16/19 | 1,000 | 2000 | | | 1,000 mL 1,000 mL, Intravenous, | | 19 12:47 | mLs | mL/hr | | | Administer over 30 Minutes, | | PM PDT | | | | | ONCE, Wed08/15/18 at 1200, For 1 | | | | | | | dose | | | | | | + +---------+ +--------+-------+---+ +---+---+ | | | +---+---+ + +---------+ +---+-------+---+ | sodium chloride 0.9% (NS) | New Bag | 08/18/19 | | 100 | | | infusion at 100 mL/hr, | | 19 7:55 | | mL/hr | | | Intravenous, CONTINUOUS, Starting | | AM PDT | | | | | 08/15/18 at 1430 | | | | | | + +---------+ +---+-------+---+ +---------+ +---+-------+---+ | New Bag | 08/17/19 | | 100 | | | | 19 8:28 | | mL/hr | | | | PM PDT | | | | +---------+ +---+-------+---+ | New Bag | 08/17/19 | | 100 | | | | 19 11:29 | | mL/hr | | | | AM PDT | | | | +---------+ +---+-------+---+ +---+---+ | | | +---+---+ + +-------+ +------+---+---+ | tiZANidine (ZANAFLEX) tablet 4 | Given | 08/19/19 | 4 mg | | | | mg 4 mg, Oral, NIGHTLY, First | | 19 9:00 | | | | | dose on [facility] 08/18/18 at 2100 | | PM PDT | | | | + +-------+ +------+---+---+ +---+---+ | | | +---+---+ + +-------+ +-------+---+---+ | torsemide (DEMADEX) tablet 20 | Given | 08/20/19 | 20 mg | | | | mg 20 mg, Oral, DAILY, First | | 19 8:25 | | | | | dose on [facility] 08/18/18 at 1030 | | AM PDT | | | | + +-------+ +-------+---+---+ +-------+ +-------+---+---+ | Given | 08/19/19 | 20 mg | | | | | 19 3:04 | | | | | | PM PDT | | | | +-------+ +-------+---+---+ +---+---+ | | | +---+---+ + +-------+ +-------+---+---+ | traZODone (DESYREL) tablet 25 | Given | 08/18/19 | 25 mg | | | | mg 25 mg, Oral, NIGHTLY PRN, AUGUST | | 19 10:26 | | | | | REPEAT X 1, Insomnia, Starting | | PM PDT | | | | | 08/15/18 at 1412 | | | | | | + +-------+ +-------+---+---+ +-------+ +-------+---+---+ | Given | 08/18/19 | 25 mg | | | | | 19 8:39 | | | | | | PM PDT | | | | +-------+ +-------+---+---+ +---+---+ | | | +---+---+ + +-------+ +--------+---+---+ | traZODone (DESYREL) tablet 300 | Given | 08/19/19 | 300 mg | | | | mg 300 mg, Oral, NIGHTLY, First | | 19 9:02 | | | | | dose on Wed08/18/18 at 2100 | | PM PDT | | | | + +-------+ +--------+---+---+ +---+---+ | | | +---+---+ + +---------+ + +--------+---+ | vancomycin 1,500 mg in sodium | New Bag | 08/16/19 | 1,500 mg | 176.7 | | | chloride 0.9% 250 mL IVPB 1,500 | | 19 12:10 | | mL/hr | | | mg (rounded from 1,497 mg = 15 | | PM PDT | | | | | mg/kg | | | | | | | 99.8 kg), Intravenous, | | | | | | | Administer over 90 Minutes, ONCE, | | | | | | | 08/15/18 at 1045, For 1 dose, | | | | | | | Keep in refrigerator., | | | | | | | Indications: Community Acquired | | | | | | | Pneumonia | | | | | | + +---------+ + +--------+---+ +---+---+ | | | +---+---+ + +-------+ +--------+---+---+ | verapamil (CALAN SR) SR tablet | Given | 08/19/19 | 480 mg | | | | 480 mg 480 mg, Oral, NIGHTLY, | | 19 9:01 | | | | | First dose on [facility] 08/18/18 at 2100, | | PM PDT | | | | | Tablet may be cut where scored, | | | | | | | but do not crush., | | | | | | + +-------+ +--------+---+---+ +---+---+ | | | +---+---+ + +-------+ +-------+---+---+ | ziprasidone (GEODON) capsule 80 | Given | 08/19/19 | 80 mg | | | | mg 80 mg, Oral, NIGHTLY, First | | 19 9:00 | | | | | dose on Wed08/18/18 at 2100, | | PM PDT | | | | | Reproductive Risk: Use | | | | | | | appropriate handling precautions. | | | | | | | May cause prolongation of QT | | | | | | | interval. Take with food., | | | | | | + +-------+ +-------+---+---+ +---+---+ | | | +---+---+ documented in this encounter
--- OUTSIDE RECORDS SUMMARY | ~2019-04-18 | XMS | Encounter Summary ---
Demographics + + + | Address | [address] | | | [place] [address] | + + + | Home Phone | | + + + | Preferred Language | Unknown | + + + | Marital Status | Single | + + + | Protestant Affiliation | CHR | + + + | Race | White | + + + | Ethnic Group | Not or | + + + Author + + + | Author | [facility] | + + + | Organization | [facility] | + + + | Address | Unknown | + + + | Phone | Unavailable | + + + Support + + + + + | Name | Relationship | Address | Phone | + + + + + | Scot Johnson | ECON | [address] | | | | | [place] [address] | | + + + + + Care Team Providers + +------+ + | Care Shear Tender Name | Role | Phone | + +------+ + | Bart Ba DO | PCP | | + +------+ + Encounter Details +--------+ + + + + | Date | Type | Department | Care Team | Description | +--------+ + + + + | 10/28/ | Documentati | Anesthesiology | Unknown . | | | 2005 | on | [address] | | | | | | [place], | | | | | | [place] [address] | | | +--------+ + + + [...] | + +--------+ + + + | ANESTHESIA/SEDATION | | 10/28/2005 | | Results for this | | | | 11:05 AM | | procedure are in the | | | | PDT | | results section. | + +--------+ + + + documented in this encounter Results ANESTHESIA/SEDATION (10/28/2005 11:05 AM PDT) + + + | Narrative | Performed At | + + + | Ordered by an unspecified provider. | | + + + + + | Transcriptions | + + | 10/28/2005 11:05 AM PDT Anesthesia PostOp Report | | | | Patient: CARLINE MIN Med Rec: [id number] Sex F Bdate: 1970 | | Date/Time Data | | Entered Into [facility] | | Anesth PostOp | | Surgery Date [id number] 10/28/05 11:05 | | Anesthesiologist BHAVANA QUIÑONES 10/28/05 11:05 | | Resident Anesthesiolog CARRIE GONZALES 10/28/05 11:05 | | | + + documented in this encounter Visit Diagnoses Not on filedocumented in this encounter"
--- OUTSIDE RECORDS SUMMARY | ~2019-04-18 | XMS | Encounter Summary ---
Demographics + + + | Address | [address] | | | [place] [address] | + + + | Home Phone | | + + + | Preferred Language | Unknown | + + + | Marital Status | Single | + + + | Uatsdin Affiliation | Unknown | + + + | Race | Unknown | + + + | Ethnic Group | Unknown | + + + Author + + + | Author | [facility] | | | and [place] | + + + | Organization | [facility] | | [...] | | | | | [place] [address] | | + + + + + | Robson Min | ECON | Unknown | | + + + + + | Isabella Whitehead | ECON | Unknown | | + + + + + Care Team Providers + +------+ + | Care Air Valve Mechanic Name | Role | Phone | + +------+ + | Bart Ba DO | PCP | | + +------+ + Encounter Details +--------+ + + + + | Date | Type | Department | Care Team | Description | +--------+ + + + + | 04/04/ | Hospital | [facility] | Navdeep Grande, | Abnormal chest CT | | 2011 - | Encounter | MED CTR XRAY [address] | MD [address] | | | | | [place] | [place], [place] | | | 04/06/ | | [place] [address] | [address] | | | 2011 | | [phone] | | | +--------+ + + + [...] | 0 | 10/08/19 | | | [id number] | every 6 hours as | | [...] [place] | | | | | | [address] | | | | | | | | +--------+---------+ + + + | 07/26/ | Office | Pulmonology | Navdeep Grande, | | | 2019 | Visit | | [address] | | | | | | [place] | | | | | | [address] | | | | | | | [...] Performed At | + + + | [facility] Diagnostic Imaging | [place] | | Department [address] [facility] | | [ rep [address]] [ rep [facility] | | [facility]] Signed | - IMAGING | | | | | Patient Name: CARLINE MIN Physician: | | | RODRI : 1970 Age: 41 Sex: F Unit #: [id number] | | | Exam Date: 04/04/12 Location: [facility] | | | Report #: [id number] Page: | | | %(RAD)RES..mtdd.print.filter("pg") of %(RAD) | | | RES..mtdd.print.filter("tpg") | | | | | | Accession Number: [id number] | | | CHEST X-RAY, 04/04/2012 CLINICAL [...] | | | Transcribed Date/Time: 04/04/2012 15:34 Compressor House Operator: | | | <<Signature on File>> | | | Magdy | | | MD Shaun04/05/12 0055 <Electronically signed by Magdy Dunn MD> | | | Magdy Dunn MD 04/04/12 1225 Compressor House Operator: Affymaxmedx | | | [id number]/17/12 1534 Navdeep [place] MD | | | | | + + + + + + + + | Performing | Address | City/State/Zipcode | Phone Number | | Organization | | | | + + + + + | [facility] | [address] | [place] | [phone] | | [facility] | | [address] | | | - IMAGING | | | | + + + + + documented in this encounter Visit Diagnoses + + | Diagnosis | + + | Abnormal chest CT Nonspecific (abnormal) findings on radiological and other | | examination of other intrathoracic organs | + + documented in this encounter
--- OUTSIDE RECORDS SUMMARY | ~2019-04-18 | XMS | Encounter Summary ---
Demographics + + + | Address | [address] | | | [place] [address] | + + + | Home Phone | | + + + | Preferred Language | Unknown | + + + | Marital Status | Single | + + + | Restoration Affiliation | CHR | + + + | Race | White | + + + | Ethnic Group | Not or | + + + Author + + + | Author | [facility] | + + + | Organization | [facility] | + + + | Address | Unknown | + + + | Phone | Unavailable | + + + Support + + + + + | Name | Relationship | Address | Phone | + + + + + | Scot Johnson | ECON | [address] | | | | | [place] [address] | | + + + + + Care Team Providers + +------+ + | Care Job Placement Counselor Name | Role | Phone | + +------+ + PCP | Unavailable | + +------+ + Encounter Details +--------+ + + + + | Date | Type | Department | Care Team | Description | +--------+ + + + + | 10/21/ | Results | Cardiothoracic | Rivka Sampson, | | | 2005 | Only | Surgery at [facility] [address] | [address] | | | | | [address] | [address] | | | | | Mailcode: L353 | [place], [place] | | | | | [facility] | [address] | | | | | [place], [place] | [phone] | | | | | [address] | | | | | | [phone] | | | +--------+ + + + [...] CT CHEST WO CONTRAST | Routin | 10/21/2005 | | Results for this | | | e | 8:25 PM | | procedure are in the | | | | PDT | | results section. | + +--------+ + + + documented in this encounter Results CT CHEST WO CONTRAST (10/21/2005 8:25 PM PDT) + + + + + + | Component | Value | Ref Range | Performed | Pathologist | | | | | At | Signature | + + + + + + | CT CHEST WO | Radiologist 1: ALESSANDRO | | | | | CONTRAST | VIOLET CuevasEXAM: Non | | | | | | contrast Chest CT | | | | | | HISTORY: Evaluate | | | | | | pneumothorax COMPARISON: | | | | | | 12/07/02 TECHNIQUE: | | | | | | [...] | | | | | | pericardialeffusion. A | | | | | | very small left | | | | | | effusion is present. A | | | | | | slightlylarger, but | | | | | | small right effusion is | | | | | | also present. A | | | | | | right-sidedChest tube | | | | | | enters from the inferior | | | | | | anterior lateral aspect | | | | | | of theChest Ball into | | | | | | the pleural space. The | | | | | | tip lies posteriorly | | | | | | andinferiorly. There | | | | | | is a persistent | | | | | | pneumothorax. However, | | | | | | this islikely secondary | | | | | | to the extensive | | | | | | visceral pleural | | | | | | thickening withan | | | | | | underlying trap lung | | | | | | involving the right | | | | | | lower and middlelobes. | | | | | | There is thickening | | | | | | also noted involving the | | | | | | right upperlobe | | | | | | visceral pleura, | | | | | | although it is less | | | | | | severe. Atelectasis | | | | | | andrestricted expansion | | | | | | of the right lobe and | | | | | | middle lobes arepresent. | | | | | | Minimal areas of | | | | | | atelectasis also present | | | | | | involving theleft lower | | | | | | lobe posterior basal | | | | | | and lingula inferior | | | | | | segment.There is no | | | | | | pulmonary edema. No | | | | | | definite area of | | | | | | consolidation tosuggest | | | | | | pneumonia. Right | | | | | | hemidiaphragm | | | | | | eventration is | | | | | | againnoted. There are | | | | | | scattered mildly | | | | | | enlarged lymph nodes | | | | | | within themediastinum | | | | | | which have not | | | | | | significantly change | | | | | | from the | | | | | | previousexamination. | | | | | | The main pulmonary | | | | | | artery is mildly | | | | | | enlarged to 3.5cm, | | | | | | suggestive for mild | | | | | | hypertension. The | | | | | | osseous structurescannot | | | | | | demonstrate any | | | | | | significant | | | | | | abnormalities. | | | | | | IMPRESSION: 1. Small | | | | | | right pleural effusion | | | | | | and extensive right | | | | | | sided visceralpleural | | | | | | thickening. The right | | | | | | lower lobe and right | | | | | | middle lobeare partially | | | | | | trapped. This likely | | | | | | is secondary to an | | | | | | underlyingexudative | | | | | | effusion which has been | | | | | | recently drained with | | | | | | the Chesttube. An | | | | | | empyema would be the | | | | | | most likely given the | | | | | | patient'syoung age. | | | | | | Differential would | | | | | | include a recent | | | | | | hemothorax versusmuch | | | | | | less likely, malignancy. | | | | | | 2. Atelectasis | | | | | | involving the right | | | | | | middle and lower lobes. | | | | | | 3. Persistent | | | | | | pneumothorax on the | | | | | | right, consistent with | | | | | | anunderlying partially | | | | | | trapped lung. 4. Mildly | | | | | | enlarged mediastinal | | | | | | lymph nodes, unchanged | | | | | | from theprevious exam. | | | | + + + + + + + + | Specimen | + + | | + + + +---------+ + + | Performing | Address | City/State/Zipcode | Phone Number | | Organization | | | | + +---------+ + + | [facility] DEPARTMENT OF | | | | | RADIOLOGY | | | | + +---------+ + + documented in this encounter Visit Diagnoses Not on filedocumented in this encounter"
--- OUTSIDE RECORDS SUMMARY | ~2019-04-18 | XMS | Encounter Summary ---
Demographics + + + | Address | [address] | | | [place] [address] | + + + | Home Phone | | + + + | Preferred Language | Unknown | + + + | Marital Status | Single | + + + | Lutheran Affiliation | Unknown | + + + | Race | Unknown | + + + | Ethnic Group | Unknown | + + + Author + + + | Author | [facility] | | | and [place] | + + + | Organization | [facility] | | [...] | | | | | [place] [address] | | + + + + + | Robson Min | ECON | Unknown | | + + + + + | Isabella Whitehead | ECON | Unknown | | + + + + + Care Team Providers + +------+ + | Care Advertising Operations Coordinator Name | Role | Phone | + +------+ + | Ora Slater | PCP | | + +------+ + Encounter Details +--------+ + + + + | Date | Type | Department | Care Team | Description | +--------+ + + + + | 09/08/ | Documentati | [facility] | Neno Walker | | | 2018 | on | SLEEP DISORDER [address] | MD Srinivas [address] | | | | | [address] [place] | [address] [place] | | | | | [place] [address] | [place] [address] | | | | | [phone] | [phone] | | | | | | | [...] [place] | | | | | | [address] | | | | | | | | +--------+---------+ + + + | 07/26/ | Office | Pulmonology | Navdeep Grande, | | | 2019 | Visit | | MD Cely GORE | | | | | | [place] | | | | | | [address] | | | | | | | | +--------+---------+ + + + documented as of this encounter Visit Diagnoses + + | Diagnosis | + + | Hypoventilation - Primary Other dyspnea and respiratory abnormality | + + documented in this encounter"
--- OUTSIDE RECORDS SUMMARY | ~2019-04-18 | XMS | Encounter Summary ---
Demographics + + + | Address | [address] | | | [place] [address] | + + + | Home Phone [...] | + + + + + | Soct Johnson | ECON | [address] | | | | | [place] [address] | | + + + + + Care Team Providers + +------+ + | Care Landfill Gas Technician Name | Role | Phone | + +------+ + PCP | Unavailable | + +------+ + Encounter Details +--------+ + + + + | Date | Type | Department | Care Team | Description | +--------+ + + + + | 11/03/ | Respiratory | | Other, Faculty | | | 2006 | Therapy | | [phone] | | +--------+ + + + + [...] [facility] | [address] | [place], [place] | | | DIAGNOSTICS - | [address] | [address] | | | PULMONARY FUNCTION | | | | + + + + + documented in this encounter Visit Diagnoses Not on filedocumented in this encounter"
--- OUTSIDE RECORDS SUMMARY | ~2019-04-18 | XMS | Encounter Summary ---
Demographics + + + | Address | [address] | | | [place] [address] | + + + | Home Phone | | + + + | Preferred Language | Unknown | + + + | Marital Status | Single | + + + | Congregation Affiliation | CHR | + + + [...] | | | | | [place] [address] | | + + + + + Care Team Providers + +------+ + | Care Shoes Salesperson Name | Role | Phone | + +------+ + PCP | Unavailable | + +------+ + Encounter Details +--------+ + + + + | Date | Type | Department | Care Team | Description | +--------+ + + + + | 08// | Results | | Susan Christianson | | | 2002 | Only | [...] +--------+ + + + | DIFFERENTIAL | Routin | 12/07/2002 | | Results for this | | | e | 3:40 AM | | procedure are in the | | | | PDT | | results section. | + +--------+ + + + | CBC, WITH | Routin | 12/07/2002 | | Results for this | | DIFFERENTIAL | e | 3:40 AM | | procedure are in the | | | | PDT | | results section. | + +--------+ + + + documented in this encounter Results DIFFERENTIAL (12/07/2002 3:40 AM PDT) + +---------+ + + + | Component | Value | Ref Range | Performed | Pathologist | | | | | At | Signature | + +---------+ + + + | NEUTROPHIL | 55 | 50 - 70 % | [facility] [...] + + + | MONOCYTE % | 10 (H) | 2 - 8 % | [...] +---------+ + + + | NEUTROPHIL | 6.9 | 1.8 - 7.7 K/cu | [facility] | | | # | | mm | DEPARTMENT | | | | | | OF | | | | | | PATHOLOGY | | + +---------+ + + + | LYMPHOCYTE | 3.9 | 1.0 - 4.8 K/cu | [facility] | | | # | | mm | DEPARTMENT | | | | | | OF | | | | | | PATHOLOGY | | + +---------+ + + + | MONOCYTE # | 1.3 (H) | 0.1 - 0.6 K/cu | [...] DEPARTMENT OF | [address] | [place] [address] | | | PATHOLOGY | [address] | | | + + + + + | [facility] DEPARTMENT OF | [address] | [place] [address] | | | PATHOLOGY | [address] | | | + + + + + CBC, WITH DIFFERENTIAL (12/07/2002 3:40 AM PDT) + + + + + + | Component | Value | Ref Range | Performed | Pathologist | | | | | At | Signature | + + + + + + | WHITE CELL | 12.6 (H) | 4.4 - 11.0 K/cu | [facility] | | | COUNT | | mm | DEPARTMENT | | | | | | OF | | | | | | PATHOLOGY | | + + + + + + | RED CELL | 3.87 | 3.65 - 5.10 | [facility] | | | COUNT | | M/cu mm | DEPARTMENT | | | | | | OF | | | | | | PATHOLOGY | | + + + + + + | HEMOGLOBIN | 11.3 | g/dL | [facility] | | | | | | DEPARTMENT | | | | | | OF | | | | | | PATHOLOGY | | + + + + + + | HEMATOCRIT | 33.4 | % | [facility] | | | | | | DEPARTMENT | | | | | | OF | | | | | | PATHOLOGY | | + + + + + + | MCV | 86.4 | 80.0 - 96.0 fL | [facility] | | | | | | DEPARTMENT | | | | | | OF | | | | | | PATHOLOGY | | + + + + + + | MCH | 29.2 [...] + + + + | RDW | 14.1 | 11.5 - 15.0 % | [facility] | | | | | | DEPARTMENT | | | | | | OF | | | | | | PATHOLOGY | | + + + + + + | PLATELET | 490 | K/cu mm | [facility] | | | COUNT | | | DEPARTMENT | | | | | | OF | | | | | | PATHOLOGY | | + + + + + + | MPV | 7.6 [...] + + + | [facility] | [address] | [place] [address] | | | PATHOLOGY | [address] | | | + + + + + | [facility] | [facility] | [place] [address] | | | PATHOLOGY | [address] | | | + + + + + documented in this encounter Visit Diagnoses Not on filedocumented in this encounter"
--- OUTSIDE RECORDS SUMMARY | ~2019-04-18 | XMS | Encounter Summary ---
Demographics + + + | Address | [address] | | | [place] [address] | + + + | Home Phone [...] | | | | | [place] [address] | | + + + + + | Robson Min | ECON | Unknown | | + + + + + | Isabella Whitehead | ECON | Unknown | | + + + + + Care Team Providers + +------+ + | Care Manager Inventory Management Name | Role | Phone | + [...] Zhou PEARSON | | | | | [phone] | [place] [address] | | +--------+ + + + + [...] [place] | | | | | | [address] | | | | | | | | +--------+---------+ + + + | 07/26/ | Office | Pulmonology | Navdeep Grande, | | | 2019 | Visit | | [address] | | | | | | [place] | | | | | | [id number] | | | | | | | [...]
--- OUTSIDE RECORDS SUMMARY | ~2019-04-18 | XMS | Encounter Summary ---
Demographics + + + | Address | [address] | | | [place] [address] | + + + | Home Phone [...] | | | | | [place] [address] | | + + + + + Care Team Providers + +------+ + | Care Supervising Architect Name | Role | Phone | + [...]
--- OUTSIDE RECORDS SUMMARY | ~2019-04-18 | XMS | Encounter Summary ---
Demographics + + + | Address | [address] | | | [place] [address] | + + + | Home Phone [...] | | | | | [place] [address] | | + + + + + Care Team Providers + +------+ + | Care Director Aeronautics Commission Name | Role | Phone | + +------+ + PCP | Unavailable | + +------+ + Encounter Details +--------+ + + + + | Date | Type | Department | Care Team | Description | +--------+ + + + + | 10/23/ | Respiratory | | Other, Faculty | | | 2006 | Therapy | | [phone] | | +--------+ + + + + [...] [facility] | [address] | [place], [place] | | | DIAGNOSTICS - | [address] | [address] | | | PULMONARY FUNCTION | | | | + + + + + documented in this encounter Visit Diagnoses Not on filedocumented in this encounter"
--- OUTSIDE RECORDS SUMMARY | ~2019-04-18 | XMS | Encounter Summary ---
Demographics + + + | Address | [address] | | | [place] [address] | + + + | Home Phone [...] Author + + + | Author | [facility] | + + + | Organization | [facility] | + + + | Address | Unknown | + + + | Phone | Unavailable | + + + Support + + + + + | Name | Relationship | Address | Phone | + + + + + | Scot Johnson | ECON | [address] | | | | | [place] [address] | | + + + + + Care Team Providers + +------+ + | Care Drapery Installer Name | Role | Phone | + +------+ + PCP | Unavailable | + +------+ + Encounter Details +--------+ + + + + | Date | Type | Department | Care Team | Description | +--------+ + + + + | 12/05/ | Results | General Internal | Edgardo Winkler MD | | | 2002 | Only | Medicine [address] | | | | | | [address] | | | | | | Mailcode: L475 | | | | | | Outpatient Clinic | | | | | | [facility] | | | | | | [place], [place] | | | | | | [address] | | | | | | [phone] | | | +--------+ + + + [...] X-RAY CHEST 1 VIEW | Routin | 12/05/2002 | | Results for this | | | e | 7:27 AM | | procedure are in the | | | | PDT | | results section. | + +--------+ + + + documented in this encounter Results CHEST 1 VIEW (12/05/2002 7:27 AM PDT) + + + + + + | Component | Value | Ref Range | Performed | Pathologist | | | | | At | Signature | + + + + + + | CHEST, 1 | Radiologist 1: EDUARDO, | | | | | VIEW | Ngoc HASSAN-Radiologist | | | | | | 2: ALICE MCCOY | | | | | | NgocCHEST ONE VIEW: | | | | | | 12/05/2002 Dictated | | | | | | 12/05/2002 HISTORY: | | | | | | 31-year-old female, | | | | | | evaluate lungs. | | | | | | TECHNIQUE: Single AP | | | | | | projection of the chest | | | | | | is presented | | | | | | forevaluation. | | | | | | COMPARISON: Chest | | | | | | radiograph, 12/04/02. | | | | | | FINDINGS: The right | | | | | | chest tube has been | | | | | | removed. There is | | | | | | probably asmall amount | | | | | | of residual pleural | | | | | | fluid. There is also | | | | | | increasingopacity at the | | | | | | right lung base which | | | | | | is probably due to | | | | | | atelectasis.The diffuse | | | | | | patchy ground-glass | | | | | | opacity in the lungs has | | | | | | decreased. IMPRESSION: | | | | | | Status post removal of | | | | | | right-sided chest tube. | | | | | | There is probably | | | | | | asmall amount of | | | | | | residual pleural fluid. | | | | | | The increasing opacity | | | | | | at theright lung base is | | | | | | most likely due to | | | | | | atelectasis. END OF | | | | | | IMPRESSION: | | | | + + + + + + + + | Specimen | + + | | + + + +---------+ + + | Performing | Address | City/State/Zipcode | Phone Number | | Organization | | | | + +---------+ + + | [facility] DEPARTMENT OF | | | | | RADIOLOGY | | | | + +---------+ + + documented in this encounter Visit Diagnoses Not on filedocumented in this encounter"
--- OUTSIDE RECORDS SUMMARY | ~2019-04-18 | XMS | Encounter Summary ---
Demographics + + + | Address | [address] | | | [place] [address] | + + + | Home Phone | | + + + | Preferred Language | Unknown | + + + | Marital Status | Single | + + + | Zoroastrian Affiliation | Unknown | + + + | Race | Unknown | + + + | Ethnic Group | Unknown | + + + Author + + + | Author | [facility] | | | and [place] | + + + | Organization | [facility] | | | [...] | | | | | [place] [address] | | + + + + + | Robson Min | ECON | Unknown | | + + + + + | Isabella Whitehead | ECON | Unknown | | + + + + + Care Team Providers + +------+ + | Care Stone Setter Metal Optical Frames Name | Role | Phone | + +------+ + | Bart Ba DO | PCP | | + +------+ + Reason for Visit + + + | Reason | Comments | + + + | Appointment | schedule gastric emptying study | + + + | Results | lab test celiac sprue test | + + + Encounter Details +--------+ + + + + | Date | Type | Department | Care Team | Description | +--------+ + + + + | 09/25/ | Telephone | [facility] | Cecilio Amato MD | Appointment | | 2013 | | GASTROENTEROLOGY | [address] | (schedule gastric | | | | [address] | [place], [place] | emptying study); | | | | [address] | [address] | Results (lab test | | | | [address] | [phone] | celiac sprue test) | | | | [phone] | | | +--------+ + + + [...] [place] | | | | | | [address] | | | | | | | | +--------+---------+ + + + | 07/26/ | Office | Pulmonology | Navdeep Grande, | | | 2019 | Visit | | [address] | | | | | | [place] | | | | | | [address] | | | | | | | | +--------+---------+ + + + documented as of this encounter Visit Diagnoses Not on filedocumented in this encounter"
--- OUTSIDE RECORDS SUMMARY | ~2019-04-18 | XMS | Encounter Summary ---
Demographics + + + | Address | [address] | | | [place] [address] | + + + | Home Phone [...] + + + | Author | [facility] | | | and [place] | + + + | Organization | [facility] | | | [...] | | | | | [place] [address] | | + + + + + | Robson Min | ECON | Unknown | | + + + + + | Isabella Whitehead | ECON | Unknown | | + + + + + Care Team Providers + +------+ + | Care Psychiatric Technician Name | Role | Phone | [...] | | | Pulmonology | respiratory | [address] | [address] | | | | | failure, | [address] | [place], | | | | | unspecified | [place] | [place] [address] | | | | | whether with | [address] | Phone: | | | | | hypoxia or | [place], [place] | [phone] | | | | | hypercapnia | [address] | Fax: | | | | | ([facility]) | Phone: | [phone] | | | | | Procedures | [phone] | | | | | | F/U LAST | Fax: | | | | | | SEEN | [phone] | | | | | | 05/26/16 [...] | (Primary Dx); | | | | [place], | [place], [place] | Alveolar | | | | [place] [address] | [phone] | hypoventilation | | | | [phone] | | | +--------+---------+ + + + [...] information carefully each time. Talk to your residence manager regarding the use of this medicine in children. Special care may be needed. What side effects may I notice from receiving this medicine? Side effects that you should report to your doctor or health intensive care ambulance paramedic as soon as p ossible: allergic reactions like skin rash or hives, swelling of the face, lips, or tongue chest pain dizziness or lightheaded fever or chills irregular heartbeat vision problems Side effects that usually do not require medical attention (report to your doctor or health intensive care ambulance paramedic if they continue or are bothersome): coughing, [...] check ups. Tell your doctor or health intensive care ambulance paramedic if yo ur symptoms do not get [...] have surgery tell your doctor or health intensive care ambulance paramedic that you are using this medicine. Try not to come in contact with people with the chicken pox or measles. If you do, call your doctor. NOTE:This sheet is a summary. It may not cover all possible information. If you have questi ons about this medicine, talk to your doctor, pharmacist, or health care provider. Copyright 2017 [employer] documented in this encounter Progress Notes Navdeep Grande MD - 10/18/2017 11:30 AM PDTFormatting of this note might be different f rom the original. Pulmonary Follow Up 10/18/2017 HPI Kait Min is a 47 y.o. female patient of [facility], here today for follow up o f Gold Stage I COPD alveolar hypoventilation. The last pulmonary clinic visit was on 05/26/16. Since their last appointment they feel like their breathing issues have been fluctuating. The patient apparently became quite ill in July 2017 and was hospitalized for 4 days at [facility] with respiratory failure/COPD exacerbation. She was [...] of intractable migraine Diabetes mellitus, type 2 ([facility]) Empyema lung ([facility]) 2006 right GI bleeding Hypercholesterolemia [...] 50,000 Units by mouth Once a w [place]., Disp: , Rfl: HYDROcodone-acetaminophen (NORCO) 7.5-325 mg [...] supplemental oxygen 1 L per min at [facility] while sleeping. Total duration of the patient's [...] 06/19/ | Office | Neurology | Jimbo Saamyoa MD | | | 2019 | Visit | | [address] | | | | | | [place] | | | | | | [address] | | | | | | | | +--------+---------+ + + + | 07/26/ | Office | Pulmonology | Navdeep Grande, | | | 2019 | Visit | | MD Cely GORE | | | | | | [place] | | | | | | [id number] | | | | | | | [...] | signed by: Navdeep Grande MD 11/19/2017 12:24[facility] | | |physiology. Lung volume testing [...] Navdeep Grande MD 11/19/2017 12:24 | | |[facility] | | + + + documented in this encounter Visit Diagnoses + + | Diagnosis | + + | COPD, mild (HCC) - Primary Chronic airway obstruction, not elsewhere classified | + + | Alveolar hypoventilation Other dyspnea and respiratory abnormality | + + documented in this encounter
--- OUTSIDE RECORDS SUMMARY | ~2019-04-18 | XMS | Encounter Summary ---
Demographics + + + | Address | [address] | | | [place] [address] | + + + | Home Phone [...] Organization | [facility] [...] | | | | | [place] [address] | | + + + + + | Robson Min | ECON | Unknown | | + + + + + | Isabella Whitehead | ECON | Unknown | | + + + + + Care Team Providers + +------+ + | Care Industrial Gas Fitter Helper Name | Role | Phone | [...] | | | | | | | [facility] [place] | [place], [place] | | | | | | [address] | [address] | | | | | | Phone: | Phone: | | | | | | [phone] | [phone] | | | | | | Fax: | Fax: | | | | | | [phone] | [phone] | +--------+--------+ + + + + Encounter Details +--------+ + + + + | Date | Type | Department | Care Team | Description | +--------+ + + + + | 01/19/ | Procedure | [facility] | Laine Batista DO | Dizziness; | | 2018 | visit | CARDIOLOGY [place] | [address] | Heart palpitations | | | | [address] | [place], [place] | | | | | [address] [place] [address] | [address] | | | | | [place] | | | | | | [address] | | | | | | [phone] | | | +--------+ + + + [...] of this encounter Progress Notes Beth Tamayo, Fruit Shipper - 01/19/2019 3:30 PM PDT2 week cardiac event monitor placed on patient. EOB/Billing information discussed. Instructions given and understood. P atient instructed to call [employer] for any billing or monitor questions. JDW:STOVE MECHANIC-AAMA. [facility] umented in this encounter Plan of [...] [place] | | | | | | [address] | | | | | | | | +--------+---------+ + + + | 07/26/ | Office | Pulmonology | Navdeep Grande, | | | 2019 | Visit | | MD Cely GORE | | | | | | [place] | | | | | | [address] | | | | | | | | +--------+---------+ + + + documented as of this encounter Visit Diagnoses + + | Diagnosis | + + | Dizziness Dizziness and giddiness | + + | Heart palpitations Palpitations | + + documented in this encounter"
--- OUTSIDE RECORDS SUMMARY | ~2019-04-18 | XMS | Encounter Summary ---
Demographics + + + | Address | [address] | | | [place] [address] | + + + | Home Phone | | + + + | Preferred Language | Unknown | + + + | Marital Status | Single | + + + | Tenriism Affiliation | CHR | + + + [...] | | | | | [place] [address] | | + + + + + Care Team Providers + +------+ + | Care Primary Care Physician Name | Role | Phone | + +------+ + PCP | Unavailable | + +------+ + Encounter Details +--------+ + + + + | Date | Type | Department | Care Team | Description | +--------+ + + + + | 12/07/ | Results | | Gemma Jacobson MD | | | 2002 | Only | | [address] | | | | | | [place], | | | | | | [place] [address] | | | | | | [phone] | | | | | | | [...] X-RAY CHEST 2 VIEW | Routin | 12/07/2002 | | Results for this | | | e | 10:24 AM | | procedure are in the | | | | PDT | | results section. | + +--------+ + + + documented in this encounter Results CHEST 2 VIEW (12/07/2002 10:24 AM PDT) + + + + + + | Component | Value | Ref Range | Performed | Pathologist | | | | | At | Signature | + + + + + + | CHEST, 2 | Radiologist 1: [facility], | | | | | VIEWS [place] | REGGIE Gunn M.D.CHEST | | | | | STEREO | RADIOGRAPH, [place] AND | | | | | | LATERAL VIEWS: | | | | | | 12/07/2002 Dictated | | | | | | 12/07/2002 COMPARISON: | | | | | | 12/06/2002. FINDINGS: | | | | | | There is no | | | | | | significant change in | | | | | | bibasilar | | | | | | linearopacities which | | | | | | most likely represent | | | | | | atelectasis. Small | | | | | | pleuraleffusions are | | | | | | present. No obvious | | | | | | loculations are | | | | | | identified. Thereis no | | | | | | pneumothorax. The | | | | | | left sided PICC line is | | | | | | stable in position. | | | | | | IMPRESSION: No | | | | | | significant interval | | | | | | change with bibasilar | | | | | | atelectasis and | | | | | | probablysmall pleural | | | | | | effusions. No definite | | | | | | areas of loculation. | | | | | | END OF IMPRESSION: | | | | + + + + + + + + | Specimen | + + | | + + + +---------+ + + | Performing | Address | City/State/Zipcode | Phone Number | | Organization | | | | + +---------+ + + | [facility] | | | | | RADIOLOGY | | | | + +---------+ + + documented in this encounter Visit Diagnoses Not on filedocumented in this encounter"
--- OUTSIDE RECORDS SUMMARY | ~2019-04-18 | XMS | Encounter Summary ---
Demographics + + + | Address | [address] | | | [place] [address] | + + + | Home Phone | | + + + | Preferred Language | Unknown | + + + | Marital Status | Single | + + + | Yazdanism Affiliation | Unknown | + + + | Race | Unknown | + + + | Ethnic Group | Unknown | + + + Author + + + | Author | [facility] | | | and [place] | + + + | Organization | [facility] | | | [...] | | | | | [place] [address] | | + + + + + | Robson Min | ECON | Unknown | | + + + + + | Isabella Whitehead | ECON | Unknown | | + + + + + Care Team Providers + +------+ + | Care Bunch Maker Hand Name | Role | Phone | + [...] MD | Referral (Follow up) | | 2018 | | HOSPITAL NEUROLOGY | [address] | | | | | CLINIC [address] | [place] | | | | | [address] [place], | [address] | | | | | [place] [address] | | | | | | [phone] | | | +--------+ + + + [...] [place] | | | | | | [address] | | | | | | | | +--------+---------+ + + + | 07/26/ | Office | Pulmonology | Navdeep Grande, | | | 2019 | Visit | | MD Cely GORE | | | | | | [place] | | | | | | [address] | | | | | | | | +--------+---------+ + + + documented as of this encounter Visit Diagnoses Not on filedocumented in this encounter"
--- OUTSIDE RECORDS SUMMARY | ~2019-04-18 | XMS | Clinical Summary ---
Demographics + + + | Address | [address] | | | [place] [address] | + + + | Home Phone | | + + + | Preferred Language | Unknown | + + + | Marital Status | Single | + + + | Scientologist Affiliation | CHR | + + + | Race | White | + + + | Ethnic Group | Not or | + + + Author + + + | Author | [facility] | + + + | Organization | [facility] | + + + | Address | Unknown | + + + | Phone | Unavailable | + + + Support + + + + + | Name | Relationship | Address | Phone | + + + + + | Scto Johnson | ECON | [address] | | | | | [place] [address] | | + + + + + Care Team Providers + +------+ + | Care Fastener Sewing Machine Operator Name | Role | Phone | + +------+ + | Bart Ba DO | PCP | | + +------+ + Source Comments [facility] is fully live on both [facility] and [facility] InPatient.[facility] Allergies + + + + + + | Active Allergy | Reactions | Severity | Noted | Comments | | | | | Date | | + + + + + + | Azithromycin | | | 12/04/19 | | | | | | 03 | | + + + + + + Medications + + + +---------+------+------+-------+ | Medication | Sig | Dispensed | Refills | Star | End | Statu | | | | | | t | Date | s | | | | | | Date | | | + + + +---------+------+------+-------+ | metformin 500 mg | am and pm | | 0 | | | Activ | | Oral Tablet | | | | | | e | + + + +---------+------+------+-------+ | glipiZIDE ER 10 mg | 2 times a day | | 0 | | | Activ | | Oral Tab,Sust Rel | | | | | | e | | Osmotic Push 24hr | | | | | | | + + + +---------+------+------+-------+ | lorazepam (ATIVAN) | at night | | 0 | | | Activ | | 1 mg Oral Tablet | | | | | | e | + + + +---------+------+------+-------+ | amitriptyline 25 | take 1 tablet (25 | | 0 | | | Activ | | mg Oral Tablet | mg) by oral route | | | | | e | | | once daily at | | | | | | | | bedtime | | | | | | + + + +---------+------+------+-------+ | paroxetine 30 mg | at night | | 0 | | | Activ | | Oral Tablet | | | | | | e | + + + +---------+------+------+-------+ | levothyroxine 150 | take 1 tablet (150 | | 0 | | | Activ | | mcg Oral Tablet | mcg) by oral route | | | | | e | | | once daily | | | | | | + + + +---------+------+------+-------+ | azathioprine 50 mg | 2 in am and 2 in pm | | 0 | | | Activ | | Oral Tablet | | | | | | e | + + + +---------+------+------+-------+ | predniSONE 10 mg | take 1 tablet (10 | | 0 | | | Activ | | Oral Tablet | mg) by oral route | | | | | e | | | once daily | | | | | | + + + +---------+------+------+-------+ | rantidine | take 1 tablet (150 | | 0 | | | Activ | | effervescent (ZANTAC | mg) dissolved in 6-8 | | | | | e | | 150 EFFERDOSE) 150 | ounces of water by | | | | | | | mg Oral Tablet, | oral route2 times | | | | | | | Effervescent | per day | | | | | | + + + +---------+------+------+-------+ | metoprolol 25 mg | take 1 tablet (25 | | 0 | | | Activ | | Oral Tablet | mg) by oral route 2 | | | | | e | | | times per day | | | | | | + + + +---------+------+------+-------+ | magnesium oxide | take 1 tablet (400 | | 0 | | | Activ | | (MAG-OXIDE) 400 mg | mg) by oral route | | | | | e | | Oral Tablet | once daily | | | | | | + + + +---------+------+------+-------+ | ciprofloxacin | take 1 tablet (500 | 60 | 0 | 08/1 | | Activ | | (CIPRO) 500 mg Oral | mg) by oral route | | | 9/20 | | e | | Tablet | every 12 hours | | | 08 | | | + + + +---------+------+------+-------+ | mupirocin 2 % | apply a small amount | 60 | 2 | 08/1 | | Activ | | Topical Ointment | to the affected | grams | | 9/20 | | e | | | area by topical | | | 08 | | | | | route with dressing | | | | | | | | changes | | | | | | + + + +---------+------+------+-------+ | tacrolimus | apply a thin layer | 45 | 2 | 08/1 | | Activ | | (PROTOPIC) 0.1 % | to the affected skin | grams | | 9/20 | | e | | Topical Ointment | by topical route 2 | | | 08 | | | | | times per day and | | | | | | | | rub in gently and | | | | | | | | completely | | | | | | + + + +---------+------+------+-------+ | | take 1 tablet by | 65 | 0 | 08/2 | | Activ | | amoxicillin-clavulan | oral route every 8 | | | 20 | | e | | ate (AUGMENTIN) | hours x 3 weeks | | | 08 | | | | 500-125 mg Oral | | | | | | | | Tablet | | | | | | | + + + +---------+------+------+-------+ Active Problems Not on file Social History + +-------+ +--------+------+ | Tobacco [...] + + Last Filed Vital Signs + +---------+ + [...] - | | + +---------+ + + Plan of Treatment + + + + + | Health Maintenance | Due Date | Last Done | Comments | + + + + + | Influenza (Flu) | | 02/17/2016, 02/15/2015, | | | vaccination (#1) | 9 | 01/10/2015, Additional history | | | | | exists | | + + + + + | Pneumococcal | Completed | 01/10/2015, 04/24/2014, | | | vaccination | | 03/22/2013, Additional history | | | | | exists | | + + + + + Results Not on filefrom Last 3 Months"
--- OUTSIDE RECORDS SUMMARY | ~2019-04-18 | XMS | Clinical Summary ---
Demographics + + + | Address | [address] | | | [place] [address] | + + + | Home Phone [...] + + + | Author | [facility] | | | and [place] | + + + | Organization | [facility] | | | [...] | | | | | [place] [address] | | + + + + + | Robson Min | ECON | Unknown | | + + + + + | Isabella Whitehead | ECON | Unknown | | + + + + + Care Team Providers + +------+ + | Care Work Over Rig Operator Name | Role | Phone | [...] + +---------+------+------+-------+ | LANTUS SOLOSTAR | Inject 20 Units | | 0 | 02/0 | [...] + + +---------+------+------+-------+ | azaTHIOprine | Take 1 tablet by | | 0 | 08/0 | | Activ | | (IMURAN) 50 mg | mouth every morning. | | | 2/20 | | e | | tablet | | | | 18 | | | + + + +---------+------+------+-------+ | magnesium oxide | Take 1 tablet by | | 0 | 07/2 | | Activ | | (MAG-OX) 400 mg | mouth Daily. | | | 7/20 | | e | | tablet | | | | 18 | | | + + + +---------+------+------+-------+ | torsemide | Take 20 mg by mouth | | 0 | 08/2 | | Activ | | (DEMADEX) 20 mg | Daily. With 5mg for | | | 1/20 | | e | | tablet | total of 25mg | | | 18 | | | [...] + + +---------+------+------+-------+ | pregabalin | Take 150 mg by mouth | | 0 | | | Activ | | (LYRICA) 150 MG | 2 [...] puffs into | 1 | 3 | 05/1 | | Activ | | fluticasone-salmeter | the lungs 2 times | Inhaler | | 3/20 | | e | | ol (ADVAIR HFA) | daily. Rinse mouth | | | 19 | | | | 115-21 MCG/ACT | and throat after | | | | | | | inhaler | use. | | | | | | + + + +---------+------+------+-------+ | cloNIDine | Place 1 patch onto | | 0 | 05/1 | | Activ | | (CATAPRES) 0.3 mg/24 | the skin Once a | | | /20 | | e | | hr patch | week. | | | 19 | | | + + + +---------+------+------+-------+ | Continuous Blood | | | 0 | 07/1 | | Activ | | Gluc Sensor | | | | 10/06 | | e | | (FREESTYLE HUAN [...] | | + + + +---------+------+------+-------+ | Varenicline | Take 5 mg by mouth 2 | | 0 | | | Activ | | Tartrate (CHANTIX | times daily. | | | | | e | | PO) | | | | | | | [...] | mouth every morning | | | 7/20 | | e | | tablet | (before breakfast). | | | 19 | | | + + + +---------+------+------+-------+ | AMITIZA 24 MCG | Take 14 mcg by mouth | | 0 | [...] morning | capsule | | 4/20 | 920 | ntinu | | capsule | (before [...] eted) | + + + +---------+------+------+-------+ | torsemide [...] eted) | + + + +---------+------+------+-------+ | roflumilast | Take 1 tablet by | 30 | 5 | 06/0 | 03/19 | Disco | | (DALIRESP) 500 mcg | mouth Daily. | tablet | | 10/06 | 01/06 | ntinu | | tabletIndications: [...] mouth | | 0 | 07/1 | 12/ | Disco | | (REGLAN) 10 mg | as needed. | | | 11/05 | 20 | ntinu | | tablet | | [...] mg by mouth | | 0 | 10/0 | 12 | Disco | | | 2 times daily. | | | 11/05 | 20 | ntinu | | | | | [...] mg by mouth | | 0 | 12/19 | 03/19 | Disco | | (ZOFRAN) 4 mg tablet | as needed. | | | 0/20 | 01/06 | ntinu | | | [...] | | 03/19 | Disco | | (GEODON) 60 MG | nightly. | | | | 01/06 | ntinu | | capsule | | [...] Noted Date | + + + | Diabetic retinopathy [...] + + | Overview: Overview: | | Sees Dr. Santana Becerra- in [place] | | | | IMO Problem List [...] migraine | | 2019 | visit | | | with aura [...] | Intractable migraine | | 2018 | | | | with aura without | | | | | | status migrainosus | | | | | | (Primary Dx) | +--------+ + + + + | 02/13/ | Telephone | Neurology | Jimbo Samayoa MD | Treatment Order | | 2018 | | | | | +--------+ + + + + | 01/25/ | Office | Pulmonology | Navdeep Grande, | COPD, moderate (HCC) | | 2019 | Visit | | MD | (Primary Dx); | | | | | | Tobacco use | | | | | | disorder; Alveolar | | | | | | hypoventilation; | | | | | | COPD, frequent | | | | | | exacerbations (HCC) | +--------+ + + + + | 01/19/ | Procedure | Cardiology | Laine Batista DO | Dizziness; | | 2019 | visit | | | Heart palpitations | +--------+ + + + + | 01/19/ | Documentati | Cardiology | Nora Francis, | Other (end of study) | | 2019 | on | | Technologist | | +--------+ + + + + [...] | + + + + | INFLUENZA, [id number], | 03/09/2009 | | | UNSPECIFIED | [...] [place] | | | | | | [address] | | | | | | | | +--------+---------+ + + + | 07/26/ | Office | Pulmonology | Navdeep Grande, | | | 2019 | Visit | | [address] | | | | | | [place] | | | | | | [address] | | | | | | | [...] + | Hemoglobin A1c | | 09/06/2014, 07/27/2013 | | | Screening | 5 | [...] + + from Last 3 Months Results BOTOX INJECTION PAIN CLINIC PROCEDURE (04/07/2019 3:45 PM PST) + + + | Narrative | Performed At | + + + | Jimbo Samayoa MD 04/07/2019 4:12 PM [place] | | | 04/07/2019 PROCEDURE: BOTOX [...] | | Sincerely, Jimbo Samayoa M.D. Neurologist [phone] | | | Electronically signed | | [...] | [employer] | [employer] | [id number] | 10/18/19 | [phone] | | Medica | | MEDICAID HMO | HEALTH | | 14-Pre | 1 | | id | | | MDCD | | sent | | | | | | [place]MO [place] | | | | | | + +--------+ +--------+ +---------+--------+ | [employer] | [employer] | [id number] | | [phone] | | Medica | | MEDICAID HMO | HEALTH | | 018-Pr | 1 | | id | | | MDCD | | esent | | | | | | [place]MO [place] | | | | | | + +--------+ +--------+ +---------+--------+ | [employer] | MOD[employer] | [id number] | | [phone] | | Medica | | MEDICAID HMO [...] + | CARLINE MIN | Person | Other | [birth year] | | [address] | | | al/Fam | | 1970 | [phone] | [place], [place] | | | kristy | | | 5 (Home) | [address] | + +--------+ +--------+ + + | Carline Min | Person | Self | [birth year] | | [address] | | | al/Fam | | 1970 | [phone] | [place], [place] | | | kristy | | | 5 (Home) | [address] | + +--------+ +--------+ + + | Carline Min | Person | Self | [birth year] | | [address] | | | al/Fam | | 1970 | [phone] | [place], [place] | | | kristy | | | 5 (Home) | [address] | + +--------+ +--------+ + + Advance Directives + + + + + | Type | Date Recorded | Patient | Explanation | | | | Certified Alcohol And Drug Counselor | | + + + + + | Power of | | | | | Orthotic Technician | | | | + + + + + | Advance | 08/15/2018 8:51 | | | | Directive | AM | | | + + + + [...]
--- OUTSIDE RECORDS SUMMARY | ~2019-04-18 | XMS | Encounter Summary ---
Demographics + + + | Address | [address] | | | [place] [address] | + + + | Home Phone [...] | | | | | [place] [address] | | + + + + + | Robson Min | ECON | Unknown | | + + + + + | Isabella Whitehead | ECON | Unknown | | + + + + + Care Team Providers + +------+ + | Care Astronomy Professor Name | Role | Phone | + +------+ + | Bart Ba DO | PCP | | + +------+ + Encounter Details +--------+ + + + + | Date | Type | Department | Care Team | Description | +--------+ + + + + | 05/23/ | Orders Only | [facility] | Lu Almazan, | Alveolar | | 2016 | | PULMONARY [address] | RN | hypoventilation | | | | [place], | | | | | | [place] [address] | | | | | | [phone] | | | +--------+ + + + [...] [place] | | | | | | [address] | | | | | | | | +--------+---------+ + + + | 07/26/ | Office | Pulmonology | Navdeep Grande, | | | 2019 | Visit | | [address] | | | | | | [place] | | | | | | [address] | | | | | | | | +--------+---------+ + + + documented as of this encounter Visit Diagnoses + + | Diagnosis | + + | Alveolar hypoventilation Other dyspnea and respiratory abnormality | + + documented in this encounter"
--- OUTSIDE RECORDS SUMMARY | ~2019-04-18 | XMS | Encounter Summary ---
Demographics + + + | Address | [address] | | | [place] [address] | + + + | Home Phone [...] | | | | | [place] [address] | | + + + + + | Robson Min | ECON | Unknown | | + + + + + | Isabella Whitehead | ECON | Unknown | | + + + + + Care Team Providers + +------+ + | Care Fluid Power Mechanic Name | Role | Phone | + +------+ + PCP | Unavailable | + +------+ + Encounter Details +--------+ + + + + | Date | Type | Department | Care Team | Description | +--------+ + + + + | 02/21/ | Hospital | [facility] | Neno Walker | | | 2000 | Encounter | MED CTR SLEEP | MD Srinivas [address] | | | | | [place] [address] | [facility] | | | | | [place] | [place] [address] | | | | | [address] | [phone] | | | | | [phone] | | | +--------+ + + + [...] [place] | | | | | | [address] | | | | | | | | +--------+---------+ + + + | 07/26/ | Office | Pulmonology | Navdeep Grande, | | | 2019 | Visit | | MD Cely GORE | | | | | | [place] | | | | | | [address] | | | | | | | | +--------+---------+ + + + documented as of this encounter Visit Diagnoses Not on filedocumented in this encounter"
--- OUTSIDE RECORDS SUMMARY | ~2019-04-18 | XMS | Encounter Summary ---
Demographics + + + | Address | [address] | | | [place] [address] | + + + | Home Phone | | + + + | Preferred Language | Unknown | + + + | Marital Status | Single | + + + | Latter Day Affiliation | Unknown | + + + [...] | | | | | [place] [address] | | + + + + + | Robson Min | ECON | Unknown | | + + + + + | Isabella Whitehead | ECON | Unknown | | + + + + + Care Team Providers + +------+ + | Care Cut Out And Marking Machine Operator Name | Role | Phone [...] Zhou PEARSON | | | | | [phone] | [place] [address] | | +--------+ + + + + [...] [place]HELLE | | | | | | [address] | | | | | | | | +--------+---------+ + + + | 07/26/ | Office | Pulmonology | Navdeep Grande, | | | 2019 | Visit | | [address] | | | | | | [place] | | | | | | [id number] | | | | | | | [...]
--- OUTSIDE RECORDS SUMMARY | ~2019-04-18 | XMS | Encounter Summary ---
Demographics + + + | Address | [address] | | | [place] [address] | + + + | Home Phone [...] | | | | | [place] [address] | | + + + + + | Robson Min | ECON | Unknown | | + + + + + | Isabella Whitehead | ECON | Unknown | | + + + + + Care Team Providers + +------+ + | Care Planning Advisor Name | Role | Phone | [...] | | | | [address]NA[address] | [employer] | | | | | [address] | | | | | | [place] | | | | | | [address] | | | | | | [phone] | | | +--------+ + + + [...] [place]HEL[place] | | | | | | [address] | | | | | | | | +--------+---------+ + + + | 07/26/ | Office | Pulmonology | Navdeep Grande, | | | 2019 | Visit | | [address] | | | | | | [place] | | | | | | [address] | | | | | | | | +--------+---------+ + + + documented as of this encounter Visit Diagnoses Not on filedocumented in this encounter"
--- OUTSIDE RECORDS SUMMARY | ~2019-04-18 | XMS | Encounter Summary ---
Demographics + + + | Address | [address] | | | [place] [address] | + + + | Home Phone | | + + + | Preferred Language | Unknown | + + + | Marital Status | Single | + + + | Anglican Affiliation | CHR | + + + [...] | | | | | [place] [address] | | + + + + + Care Team Providers + +------+ + | Care Appellate Law Clerk Name | Role | Phone | + +------+ + PCP | Unavailable | + +------+ + Encounter Details +--------+ + + + + | Date | Type | Department | Care Team | Description | +--------+ + + + + | 04/04/ | Transcribed | | Dictation, Other | Transcribed | | 2001 | | | | | +--------+ + [...] as of this encounter Progress Notes Interface, Traveling Representative In - 01/09/2006 1:08 AM [facility] [place] [facility] [place], [place] [address] or April 04, 2001 Tracy Koo M.D. [address] [address] RE: CARLINE MIN MR #: [id number] Koo: I had the pleasure of seeing your patient Mrs. Carline Min for followup in the Rheumatology Clinic of her diagnosis of rheumatoid arthritis. She last saw me in May 2000 and was supposed to have followup in my clinic every 3 months since that time, but has missed 2 followup appointments. It is difficult for her to travel all the way from [place] to [place] for these appointments, but unfortunately, I have also not received any labs monitoring from her or from your office. She returns to clinic today explaining that she underwent what appeared to be a flare of her rheumatoid arthritis approximately 1-1/2 months ago. She awoke feeling acutely stiff in multiple joints and was evaluated apparently in a local Emergency Room and diagnosed with a flare of her rheumatoid arthritis. She had been on her methotrexate and sulfasalazine at the time of onset. She had stiffness and pain in multiple joints in her hands, her wrists, her knees, and her ankles at that time, and fatigue and general malaise but no fever. She was apparently placed on prednisone at 20 mg a day for 5 days and then discontinued off her prednisone. Since that time, she has continued to take her methotrexate at 15 mg a week as well as sulfasalazine at 1 g twice a day. She has had no side effects from those medications. Since taking the short course of prednisone, most of her joint symptoms have resolved. She continues to have some morning stiffness lasting anywhere from 10 to 30 minutes involving the small joints of her hands and also her wrists primarily. On review of systems, she denies any fevers, chills, night sweats, any single red hot swollen joints. She denies any nodules, skin rashes, oral ulcers, chest pain, or shortness of breath. PAST MEDICAL HISTORY 1. Hypothyroidism. 2. Diabetes mellitus. 3. Obesity. 4. Rheumatoid arthritis, nodular, and seropositive. CURRENT MEDICATIONS: Methotrexate 50 mg p.o. every week, folate 1 mg p.o. q.d., Celebrex 200 mg p.o. b.i.d., Synthroid 300 mcg p.o. q.d., Zoloft 50 mg p.o. q.d., Glucotrol 10 mg 1 p.o. q.d., vitamins 1 p.o. q.d., and newly-initiated Glucophage for which she does not know the dosage. FAMILY HISTORY: No family history of rheumatoid arthritis or connective tissue disease. SOCIAL HISTORY: She has a child and lives outside of [place], [place]. She does not smoke, drink, or use illicit drugs. PHYSICAL EXAMINATION: Weight is 278 pounds. Pulse is 92 and regular. Blood pressure is 112/74. Respiratory rate is 10 and regular. In general, she is alert and oriented, resting comfortably on the examination table, in no acute distress. Chest is clear to auscultation and percussion bilaterally. Cardiovascular: Regular rate and rhythm without murmur, gallop, or rub. Examination of her joints reveals palpable synovitis in her wrist joints bilaterally as well as her MCPs; 2, 3, and 4 bilaterally, and her PIPs; 2 through 5 bilaterally. 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 Elbows have a trace of synovitis. Shoulders have full range of motion without redness, tenderness, or swelling. Knees are nontender without redness or swelling. Ankle joints are mildly tender over the tibia, talar, and subtalar joints, and her MCP joints are mildly tender. She has large rheumatoid nodules over the extensor surfaces of her olecranon bilaterally as well as several small ones on her MCP joints bilaterally. REVIEW OF LABORATORY: From her last visit in May 2000, showed a normal CBC, normal liver function test. IMPRESSION: This is a 30-year-old woman with evidence of active ongoing synovitis by examination related to her ongoing rheumatoid arthritis. At this point, she is on moderate doses of methotrexate and moderate doses of sulfasalazine. Although, this is somewhat effective, it does not appear to be controlling her synovitis completely. Other options for this patient would be to switch her over to Arava instead of the methotrexate, although these medications generally are equivalent. Some patients may respond better to Arava than methotrexate. She has previously been tried on Enbrel and had some sort of infectious complications, although this was not well documented in our chart because it occurred in a local area of [place], and the patient cannot recall much information about that. Nonetheless, it was decided that because of the immunosuppressive effects of Enbrel that that medication be stopped. The next option in this patient would be to initiate a Remicade infusion. This can be quite effective in a severe rheumatoid arthritis. However, the difficulty in this patient will be logistics of getting her Remicade infusions done in her local area. I am happy to write the orders for that and to initiate the therapy if you know of a hospital in the local area that would be willing to do Remicade infusions and if you are willing to take over her general monitoring for her methotrexate and the Remicade and the sulfasalazine. This would require infusions of Remicade at 0, 2, and 6 weeks, and then every 8 weeks after that. She would need CBC, liver function tests, and a basic chemistry panel done initially every month and then every 2 months after that. RECOMMENDATIONS 1. Check laboratories and sedimentation rate at this time. 2. Repeat x-ray films of her hands to follow up to see if there has been any worsening of her joint disease in terms of radiographic findings. 3. I will continue her on the methotrexate and sulfasalazine. 4. She needs every 2-month liver function test and CBCs while she is on those medication. 5. Please consider the possibility of initiating Remicade in this patient. I will be happy to work with you in any local hospital to get this set up, but I cannot do it completely long distance without a local provider involved. This patient was seen and staffed with Dr. eDyvi Lainez who agrees with the above assessment and plan. Thank you again for referring your patient to Rheumatology Clinic at [facility]. Please contact me after you receive this letter with your thoughts on Remicade in this patient. You can page me through the [facility] fur trimming machine operator at [phone] and ask them to page Dr. Dorene Waite, or you can leave a message and a time for me to contact you at [phone]. Our fax number at the clinic is [phone]. Sincerely Dorene Waite M.D. Rheumatology Fellow Deyvi Lainez M.D. [place] / [id number] / [id number] / [id number] / [id number] signed by Interface, Traveling Representative In at 01/09/2006 1:08 AM PDTdoc umented in this encounter Plan of Treatment Not on filedocumented as of this encounter Visit Diagnoses Not on filedocumented in this encounter"
--- OUTSIDE RECORDS SUMMARY | ~2019-04-18 | XMS | Encounter Summary ---
Demographics + + + | Address | [address] | | | [place] [address] | + + + | Home Phone [...] | Author | [facility] | | | and [place] | + + + | Organization | [facility] | | | [...] | | | | | [place] [address] | | + + + + + | Robson Min | ECON | Unknown | | + + + + + | Isabella Whitehead | ECON | Unknown | | + + + + + Care Team Providers + +------+ + | Care Senior Compliance Analyst Name | Role | Phone | + [...] + + | 11/03/ | Office | [facility] | Neno Walker | Nocturnal oxygen | | 2019 | Visit | SLEEP DISORDER [address] | MD Srin[address] | desaturation | | | | [address] [place] | [address] | (Primary Dx); | | | | [place] [address] | [place] [address] | Chronic obstructive | | | | [phone] | [phone] | pulmonary disease, | | | | [...] breaths does not meet criteria for an hunting guide ea or hypopnea. Sleep Architecture: Lights out [...] obstructive apneas, 0 mixed apneas, 0 central hunting guide eas, 3 hypopneas, and 18 Respiratory Effort [...] signed by: Navdeep Grande MD 09/22/2018 14:54 [facility] BP 120/80 | Pulse 86 | Resp [...] [place]HELLE | | | | | | [address] | | | | | | | | +--------+---------+ + + + | 07/26/ | Office | Pulmonology | Navdeep Grande, | | | 2019 | Visit | | MD [address]ely [address] | | | | | | [place] | | | | | | [address] | | | | | | | [...]
--- OUTSIDE RECORDS SUMMARY | ~2019-04-18 | XMS | Encounter Summary ---
Demographics + + + | Address | [address] | | | [place] [address] | + + + | Home Phone [...] + | Author | [facility] | | | and [place] | + + + | Organization | [facility] | | | and [...] | | | | | [place] [address] | | + + + + + | Robson Min | ECON | Unknown | | + + + + + | Isabella Whitehead | ECON | Unknown | | + + + + + Care Team Providers + +------+ + | Care News Production Supervisor Name | Role | Phone | [...] Medicine | JESUSITA | Neno Thong | [place] [address] [address] | | | Required | | (obstructive | MD Srin[address] | [place] | | | | | sleep | [facility] | [place], | | | | | apnea) | [facility] | [place] [address] | | | | | Nocturnal | [place], [place] | Phone: | | | | | oxygen | [address] | [phone] | | | | | desaturation | Phone: | Fax: | | | | | E66.2 | [phone] | [phone] | | | | | (ICD-10-CM) | Fax: | | | | | | - 278.03 | [phone] | | | | | | (ICD-9-CM) [...] | | | | | | | MD POLYSOM | | | | | | [...] Reason | Comments | +---------+ + | Consult | | +---------+ + Evaluate & Treat (Urgent) +--------+ + + + + + | Status | Reason | Specialty | Diagnoses / | Referred By | Referred To | | | | | Procedures | Contact | Contact | +--------+ + + + + + | Closed | Specialty | Sleep | Diagnoses | [place], | [facility] | | | Services | Medicine | Alveolar | MD Navdeep | [facility] | | | Required | | hypoventilat | [address] | Disorder [address] | | | | | ion JESUSITA and | [address] | [address] | | | | | COPD | [place], | [place], | | | | | overlap | [place] [address] | [place] [address] | | | | | syndrome | Phone: | Phone: | | | | | ([facility]) | [phone] | [phone] | | | | | | Fax: | Fax: | | | | | | [phone] | [phone] | +--------+ + + + + + Encounter Details +--------+---------+ + + + | Date | Type | Department | Care Team | Description | +--------+---------+ + + + | 07/28/ | Office | [facility] | Neno Walker | JESUSITA (obstructive | | 2019 | Visit | SLEEP DISORDER [address] | MD Srinivas [address] | sleep apnea) | | | | [address] [place] | [address] [place] | (Primary Dx); | | | | [place] [address] | [place] [address] | Obesity | | | | [phone] | [phone] | hypoventilation | | | | | | syndrome (HCC); | | | | | | Nocturnal oxygen | | | [...] | | | | | | type (HCC); Bipolar | | | | | | disorder, in partial | | | | | | remission, most | | | | | | recent episode mixed | | | | | | ([facility]) | +--------+---------+ + + + Social History [...] + + + | Blood Pressure | 98/70 | 07/28/2018 8:48 AM | | | | | PDT | | + + + + + | Pulse | 87 | 07/28/2018 8:48 AM | | | | | PDT | | + + + + + | Temperature | - | - | | + + + + + | Respiratory Rate | 18 | 07/28/2018 8:48 AM | | | | | PDT | | + + + + + | Oxygen Saturation | 95% | 07/28/2018 8:48 AM | | | | | PDT | | + + + + + | Inhaled Oxygen | - | - | | | Concentration | | | | + + + + + | Weight | 110.9 kg (244 lb 7.8 | 07/28/2018 8:48 AM | | | | oz) | PDT | | + + + + + | Height | 162.6 cm (5' 4") | 07/28/2018 8:48 AM | | | | | PDT | | + + + + + | Body Mass Index | 41.97 | 07/28/2018 8:48 AM | | | | | PDT | | + + + + + documented in this encounter Progress Notes Neno Walker Jr., MD - 07/28/2018 9:00 AM PDTFormatting of this note might be differen t from the original. 07/28/18 0800 [place]ana Depression Inventory-II Depression Score 57 - Severe depression Insomnia Severity Index Insomnia Severity Index 21 Davenport Sleepiness Scale 1. Sitting and reading 3 2. Watching TV 2 3. Sitting, inactive in a public place (e.g. a theatre or a meeting) 3 4. As a passenger in a car for an hour without a break 3 5. Lying down to rest in the afternoon when circumstances permit 3 6. Sitting and talking to someone 2 7. Sitting quietly after a lunch without alcohol 3 8. In a car, while stopped for a few minutes in traffic 1 Total score 20 SF-36v2 Score PF 23.09 RP 27.96 BP 21.68 GH 27.03 VT 22.89 SF 22.25 RE 14.39 MH 19.48 PCS 29.13 MCS 17.92 documented in th is encounter Plan of [...] [place] | | | | | | [address] | | | | | | | | +--------+---------+ + + + | 07/26/ | Office | Pulmonology | Navdeep Grande, | | | 2019 | Visit | | [address] | | | | | | [place] | | | | | | [address] | | | | | | | | +--------+---------+ + + + + +------+--------+ + + | Name | Type | Priori | Associated Diagnoses | Order Schedule | | | | ty | | | + +------+--------+ + + | Pulmonary function | PFT | LARS | JESUSITA (obstructive | 1 Occurrences | | test | | | sleep apnea) | starting 07/28/2018 | | | | | Obesity | until 07/29/2019 | | | | | hypoventilation | | | | | | syndrome (HCC) | | | | | | Rheumatoid | | | | | | arthritis, involving | | | | | | unspecified site, | | | | | | unspecified | | | | | | rheumatoid factor | | | | | | presence (HCC) | | | | | | Chronic obstructive | | | | | | pulmonary disease, | | | | | | unspecified COPD | | | | | | type (HCC) Bipolar | | | | | | disorder, in partial | | | | | | remission, most | | | | | | recent episode mixed | | | | | | (HCC) | | + +------+--------+ + + + + +--------+ + + | Name | Type | Priori | Associated Diagnoses | Order Schedule | | | | ty | | | + + +--------+ + + | * [facility] - | Outpatient | Routin | JESUSITA (obstructive | Ordered: 07/28/2018 | | AMB Referral | Referral | e | sleep apnea) | | | | | | Obesity | | | | | | hypoventilation | | | | | | syndrome (HCC) | | | | | | Nocturnal oxygen | | | | | | desaturation | | | | | | Rheumatoid | | | | | | arthritis, involving | | | | | | unspecified site, | | | | | | unspecified | | | | | | rheumatoid factor | | | | | | presence (HCC) | | | | | | Chronic [...] | + +--------+ + + + | DIAGNOSTIC REPORT - | | 08/08/2018 | | Results for this | | EXTERNAL SCAN | | 12:00 AM | | procedure are in the | | | | PDT | | results section. | + +--------+ + + + documented in this encounter Results DIAGNOSTIC REPORT - EXTERNAL SCAN (08/08/2018 12:00 AM PDT) + + + | Narrative | Performed At | + + + | Ordered by an | | | unspecified provider. 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
--- OUTSIDE RECORDS SUMMARY | ~2019-04-18 | XMS | Encounter Summary ---
Demographics + + + | Address | [address] | | | [place] [address] | + + + | Home Phone [...] Author + + + | Author | [facility] | + + + | Organization | [facility] | + + + | Address | Unknown | + + + | Phone | Unavailable | + + + Support + + + + + | Name | Relationship | Address | Phone | + + + + + | Scot Johnson | ECON | [address] | | | | | [place] [address] | | + + + + + Care Team Providers + +------+ + | Care Transportation Maintenance Operator Name | Role | Phone | + +------+ + | Bart Ba DO | PCP | | + +------+ + Encounter Details +--------+ + + + + | Date | Type | Department | Care Team | Description | +--------+ + + + + | 03/28/ | Abstract | Neurology at | Unknown . | | | 2018 | | [facility] | | | | | | Healing [address] | | | | | | Aleks Hanna Mailcode: | | | | | | [facility] | | | | | | [facility] and He[facility], | | | | | | | | | | | | [place], [place] | | | | | | [address] | | | | | | [phone] | | | +--------+ + + + [...]
--- OUTSIDE RECORDS SUMMARY | ~2019-04-18 | XMS | Encounter Summary ---
Demographics + + + | Address | [address] | | | [place] [address] | + + + | Home Phone [...] | | | | | [place] [address] | | + + + + + | Robson Min | ECON | Unknown | | + + + + + | Isabella Whitehead | ECON | Unknown | | + + + + + Care Team Providers + +------+ + | Care Teacher Lip Reading Name | Role | Phone | + [...] + + | 11/03/ | Office | [facility] | Neno Walker | Nocturnal oxygen | | 2019 | Visit | SLEEP DISORDER [address] | MD Srinivas [address] | desaturation | | | | [address] [place] | [address] | (Primary Dx); | | | | [place] [address] | [place] [address] | Chronic obstructive | | | | [phone] | [phone] | pulmonary disease, | | | | [...] breaths does not meet criteria for an production control pegboard clerk ea or hypopnea. Sleep Architecture: Lights out [...] obstructive apneas, 0 mixed apneas, 0 central production control pegboard clerk eas, 3 hypopneas, and 18 Respiratory Effort [...] signed by: Navdeep Grande MD 09/22/2018 14:54 [facility] BP 120/80 | Pulse 86 [...] [place]HEL[place] | | | | | | [address] | | | | | | | | +--------+---------+ + + + | 07/26/ | Office | Pulmonology | Navdeep Grande, | | | 2019 | Visit | | MD Cely GORE | | | | | | [place] | | | | | | [address] | | | | | | | [...]
--- OUTSIDE RECORDS SUMMARY | ~2019-04-18 | XMS | Encounter Summary ---
Demographics + + + | Address | [address] | | | [place] [address] | + + + | Home Phone [...] + + + | Author | [facility] | + + + | Organization | [facility] | + + + | Address | Unknown | + + + | Phone | Unavailable | + + + Support + + + + + | Name | Relationship | Address | Phone | + + + + + | Scot Johnson | ECON | [address] | | | | | [place] [address] | | + + + + + Care Team Providers + +------+ + | Care Veterinarian Name | Role | Phone | + [...] [address] | | | | | [place] | [place] | | | | | [address] | [address] | | | | | [phone] | [phone] | | | | | | | [...] + + | Performing | Address | City/State[facility] | Phone Number | | Organization | | | | + +---------+ + + | [facility] DEPARTMENT OF | | | | [...] +---------+ + + | [facility] DEPARTMENT OF | | | | [...] + + + + + | [facility] | [address] [facility] | [place] [address] | | | PATHOLOGY | [address] | | | + + + + + | [facility] | [address] [facility] | [place] [address] | | | PATHOLOGY | [address] [...] DEPARTMENT OF | [address] | [place] [address] | | | PATHOLOGY | [address] | | | + + + + + | [facility] DEPARTMENT OF | [address] | [place] [address] | | | PATHOLOGY | [address] [...] + + + | [facility] DEPARTMENT OF | [address] | [place] [address] | | | PATHOLOGY | [address] | | | + + + + + | [facility] DEPARTMENT OF | [facility] | [place] [address] | | | PATHOLOGY | [address] [...] DEPARTMENT OF | [address] | [place] [address] | | | PATHOLOGY | [address] | | | + + + + + | [facility] | [address] [facility] | [place] [address] | | | PATHOLOGY | [address] [...] 1: DEANDRA, | | | | | [place] | BRETT | | | | | BURT | Ngoc-Radiologist 2: ELMO | | | | | | HORACIO: AP and | | | | | [...] + + | Performing | Address | City/State/[facility] | Phone Number | | Organization | | | | + +---------+ + + | [facility] DEPARTMENT OF | | | | [...] + + + | [facility] DEPARTMENT | [address] [facility] | [place] [address] | | | PATHOLOGY | [address] | | | + + + + + | [facility] | [facility] | [place] [address] | | | PATHOLOGY | [address] [...] + + + | [facility] DEPARTMENT OF | [address] | [place] [address] | | | PATHOLOGY | [address] | | | + + + + + | [facility] DEPARTMENT OF | [address] | [place] [address] | | | PATHOLOGY | [address] [...] + + + + + | [facility] | [facility] | [place] [address] | | | PATHOLOGY | [address] | | | + + + + + | [facility] | [facility] [address] | [place] [address] | | | PATHOLOGY | [address] [...] + + + + + | [facility] | [address] [facility] | [place] [address] | | | PATHOLOGY | [address] | | | + + + + + | [facility] DEPARTMENT OF | [address] [facility] | [place] [address] | | | PATHOLOGY | [address] [...] + + + + + | [facility] | [address] | [place] [address] | | | PATHOLOGY | [address] | | | + + + + + | [facility] | [facility] | [place] [address] | | | PATHOLOGY | [address] [...] + + + | [facility] DEPARTMENT OF | [address] [facility] | [place] [address] | | | PATHOLOGY | [address] | | | + + + + + | [facility] | [address] [facility] | [place] [address] | | | PATHOLOGY | [address] [...] DEPARTMENT OF | [address] | [place] [address] | | | PATHOLOGY | [address] | | | + + + + + | [facility] DEPARTMENT OF | [address] [facility] | [place] [address] | | | PATHOLOGY | [address] [...] DEPARTMENT OF | [address] | [place] [address] | | | PATHOLOGY | [address] | | | + + + + + | [facility] DEPARTMENT OF | [address] | [place] [address] | | | PATHOLOGY | [address] [...] DEPARTMENT OF | [address] | [place] [address] | | | PATHOLOGY | [address] | | | + + + + + | [facility] | [address] | [place] [address] | | | PATHOLOGY | [address] [...] | | | [place] | Ngoc HASSANEXAM:AP and | | [...] +---------+ + + | [facility] DEPARTMENT OF | | | | [...] + + + + + | [facility] | [address] [facility] | [place] [address] | | | PATHOLOGY | [address] | | | + + + + + | [facility] | [address] [facility] | [place] [address] | | | PATHOLOGY | [address] [...] DEPARTMENT OF | [address] | [place] [address] | | | PATHOLOGY | [address] | | | + + + + + | [facility] DEPARTMENT OF | [address] | [place] [address] | | | PATHOLOGY | [address] [...] + + + | [facility] DEPARTMENT OF | [address] | [place] [address] | | | PATHOLOGY | [address] | | | + + + + + | [facility] DEPARTMENT OF | [address] | [place] [address] | | | PATHOLOGY | [address] [...] DEPARTMENT OF | [address] | [place] [address] | | | PATHOLOGY | [address] | | | + + + + + | [facility] DEPARTMENT | [address] | [place] [address] | | | PATHOLOGY | [address] | | | + + + + + MAGNESIUM, PLASMA (10/30/2005 7:14 AM PDT) + +-------+ + + + | Component | Value | Ref Range | Performed | Pathologist | | | | | At | Signature | + +-------+ + + + | MAGNESIUM,P | 2.1 | 1.8 - 2.5 mg/dL | [facility] | | | LASMA | | | [...] + + + | [facility] DEPARTMENT OF | [address] [facility] | [place] [address] | | | PATHOLOGY | [address] | | | + + + + + | [facility] DEPARTMENT OF | [address] [facility] | [place] [address] | | | PATHOLOGY | [address] [...] DEPARTMENT OF | [address] | [place] [address] | | | PATHOLOGY | [address] | | | + + + + + | [facility] DEPARTMENT OF | [address] | [place] [address] | | | PATHOLOGY | [address] [...] + + + | [facility] DEPARTMENT OF | [address] | [place] [address] | | | PATHOLOGY | [address] | | | + + + + + | [facility] DEPARTMENT OF | [address] | [place] [address] | | | PATHOLOGY | [address] [...] + + + | [facility] DEPARTMENT OF | [address] [facility] | [place] [address] | | | PATHOLOGY | [address] | | | + + + + + | [facility] DEPARTMENT OF | [address] [facility] | [place] [address] | | | PATHOLOGY | [address] [...] DEPARTMENT OF | [address] | [place] [address] | | | PATHOLOGY | [address] | | | + + + + + | [facility] DEPARTMENT OF | [address] | [place] [address] | | | PATHOLOGY | [address] | | | + + + + + RENAL FUNCTION SET (10/29/2005 6:50 AM PDT) + +---------+ + + + | Component | Value | Ref Range | Performed | Pathologist | | | | | At | Signature | + +---------+ + + + | GLUCOSE, | 135 (H) | 65 - 110 mg/dL | [facility] | | | PLASMA | | [...] + + + | [facility] DEPARTMENT OF | [address] [facility] | [place] [address] | | | PATHOLOGY | [address] | | | + + + + + | [facility] DEPARTMENT OF | [address] [facility] | [place] [address] | | | PATHOLOGY | [address] [...] DEPARTMENT OF | [address] | [place] [address] | | | PATHOLOGY | [address] | | | + + + + + | [facility] | [address] | [place] [address] | | | PATHOLOGY | [address] [...] + + + + + | [facility] | [address] [facility] | [place] [address] | | | PATHOLOGY | [address] | | | + + + + + | [facility] | [facility] [facility] | [place] [address] | | | PATHOLOGY | [address] [...] + + + | [facility] DEPARTMENT OF | [address] | [place] [address] | | | PATHOLOGY | [address] | | | + + + + + | [facility] DEPARTMENT OF | [address] | [place] [address] | | | PATHOLOGY | [address] [...] + + + + + | [facility] | [address] [facility] | [place] [address] | | | PATHOLOGY | [address] | | | + + + + + | [facility] | [address] [facility] | [place] [address] | | | PATHOLOGY | [address] | | | + + + + + MAGNESIUM, PLASMA (10/28/2005 3:15 AM PDT) + +---------+ + + + | Component | Value | Ref Range | Performed | Pathologist | | | | | At | Signature | + +---------+ + + + | MAGNESIUM,P | 1.4 (L) | 1.8 - 2.5 mg/dL | [facility] | | | LASMA | | | [...] + + + | [facility] DEPARTMENT OF | [address] [facility] | [place] [address] | | | PATHOLOGY | [address] | | | + + + + + | [facility] DEPARTMENT OF | [address] [facility] | [place] [address] | | | PATHOLOGY | [address] [...] 05:23: HPANEL COMMENTS, prev report: Slide | [facility] | | review pending. | DEPARTMENT OF | | | PATHOLOGY | + + + + + + + + | Performing | Address | City/State/Zipcode | Phone Number | | Organization | | | | + + + + + | [facility] DEPARTMENT OF | [address] | [place] [address] | | | PATHOLOGY | [address] | | | + + + + + | [facility] DEPARTMENT | [address] | [place] [address] | | | PATHOLOGY | [address] [...] + + + + + | [facility] | [address] | [place] [address] | | | PATHOLOGY | [address] | | | + + + + + | [facility] | [address] | [place] [address] | | | PATHOLOGY | [address] [...] DEPARTMENT OF | [address] | [place] [address] | | | PATHOLOGY | [address] | | | + + + + + | [facility] DEPARTMENT OF | [address] | [place] [address] | | | PATHOLOGY | [address] [...] + + + | [facility] DEPARTMENT OF | [facility] [facility] | [place] [address] | | | PATHOLOGY | [address] | | | + + + + + | [facility] DEPARTMENT OF | [facility] [facility] | [place] [address] | | | PATHOLOGY | [address] [...] +---------+ + + | [facility] DEPARTMENT OF | | | | | RADIOLOGY | | | | + +---------+ + + SLIDE REVIEW (10/27/2005 6:15 PM PDT) + + | Specimen | + + | | + + + + + | Narrative | Performed At | + + + | * Corrected 10/27/05 19:29: ISRAELNEL COMMENTS, prev report: Slide | [facility] | | review pending. | DEPARTMENT OF | | | PATHOLOGY | + + + + + + + + | Performing | Address | City/State/Zipcode | Phone Number | | Organization | | | | + + + + + | [facility] | [address] [facility] [facility] | [place] [address] | | | PATHOLOGY | [address] | | | + + + + + | [facility] | [facility] [facility] | [place] [address] | | | PATHOLOGY | [address] | | | + + + + + MAGNESIUM, PLASMA (10/27/2005 6:15 PM PDT) + +---------+ + + + | Component | Value | Ref Range | Performed | Pathologist | | | | | At | Signature | + +---------+ + + + | MAGNESIUM,P | 1.5 (L) | 1.8 - 2.5 mg/dL | [facility] | | | LASMA | | | [...] + + + | [facility] DEPARTMENT OF | [address] [facility] | [place] [address] | | | PATHOLOGY | [address] | | | + + + + + | [facility] DEPARTMENT OF | [address] | [place] [address] | | | PATHOLOGY | [address] [...] + + | * Corrected 10/27/05 19:29: HPANEL COMMENTS, prev report: Slide | [facility] | | review pending. | DEPARTMENT OF | | | PATHOLOGY | + + + + + + + + | Performing | Address | City/State/Zipcode | Phone Number | | Organization | | | | + + + + + | [facility] DEPARTMENT OF | [address] | [place] [address] | | | PATHOLOGY | [address] | | | + + + + + | [facility] | [facility] | [place] [address] | | | PATHOLOGY | [address] [...] DEPARTMENT OF | [address] | [place] [address] | | | PATHOLOGY | [address] | | | + + + + + | [facility] DEPARTMENT | [address] | [place] [address] | | | PATHOLOGY | [address] [...] 19:29: ISRAELNEL COMMENTS, prev report: Slide | [facility] | | review pending. | DEPARTMENT OF | | | PATHOLOGY | + + + + + + + + | Performing | Address | City/State/Zipcode | Phone Number | | Organization | | | | + + + + + | [facility] DEPARTMENT OF | [address] [facility] | [place] [address] | | | PATHOLOGY | [address] | | | + + + + + | [facility] DEPARTMENT OF | [address] [facility] | [facility] [place] [address] | | | PATHOLOGY | [address] [...] DEPARTMENT OF | [address] | [place] [address] | | | PATHOLOGY | [address] | | | + + + + + | [facility] DEPARTMENT OF | [address] [facility] | [place] [address] | | | PATHOLOGY | [address] [...] + + + | [facility] | [address] | [place] [address] | | | LAB-MICRO | | | [...] | | | | | performed at [facility] | | | | | | [facility] | | | | | | Laboratory. | | | | + + + + + + + + | Specimen | + + | | + + + + + + + | Performing | Address | City/State/Zipcode | Phone Number | | Organization | | | | + + + + + | [facility] | [address] | [place] [address] | | | LAB-MICRO | | | [...] + + + | [facility] | [address] | [place] [address] | | | LAB-MICRO | | | [...] + + + | [facility] | [address] | [place] [address] | | | LAB-MICRO | | | | + + + + + CULT, AFB (ALL SPECIMEN TYPES) (10/27/2005 3:03 PM PDT) [...] | | | | | performed at [facility] | | | | | | [facility] | | | | | | Laboratory | | | | + + + + + + + + | Specimen | + + | | + + + + + + + | Performing | Address | City/State/Zipcode | Phone Number | | Organization | | | | + + + + + | [facility] | [address] | [place] [address] | | | LAB-MICRO | | | [...] | + + + + + | [facility] | [address] | [place] [address] | | | LAB-MICRO | | | [...] | | | | Test performed at [facility] | | | | | | [facility] | | | | | | Laboratory. | | | | + + + + + + + + | Specimen | + + | | + + + + + + + | Performing | Address | City/State/Zipcode | Phone Number | | Organization | | | | + + + + + | [facility] | [address] | [place] [address] | | | LAB-MICRO | | | [...] | + + + + + | [facility] DEPARTMENT OF | [address] | [place] [address] | | | PATHOLOGY | [address] | | | + + + + + | [facility] | [address] | [place] [address] | | | PATHOLOGY | [address] [...] | + + + + + | [facility] | [address] | [place] [address] | | | LAB-MICRO | | | [...] | | | | | performed at [facility] | | | | | | [facility] | | | | | | Laboratory. | | | | + + + + + + + + | Specimen | + + | | + + + + + + + | Performing | Address | City/State/Zipcode | Phone Number | | Organization | | | | + + + + + | [facility] | [address] | [place] [address] | | | LAB-MICRO | | | [...] | + + + + + | [facility] | [address] | [place] [address] | | | LAB-MICRO | | | [...] + + + | [facility] | [address] | [place] [address] | | | LAB-MICRO | | | | + + + + + CULT, AFB (ALL SPECIMEN TYPES) (10/27/2005 2:46 PM PDT) [...] | | | | | performed at [facility] | | | | | | [facility] | | | | | | Laboratory | | | | + + + + + + + + | Specimen | + + | | + + + + + + + | Performing | Address | City/State/Zipcode | Phone Number | | Organization | | | | + + + + + | [facility] | [address] | [place] [address] | | | LAB-MICRO | | | [...] + + + | [facility] | [address] | [place] [address] | | | LAB-MICRO | | | [...] | | | | Test performed at [facility] | | | | | | [facility] | | | | | | Laboratory. | | | | + + + + + + + + | Specimen | + + | | + + + + + + + | Performing | Address | City/State/Zipcode | Phone Number | | Organization | | | | + + + + + | [facility] | [address] | [place] [address] | | | LAB-MICRO | | | [...] DEPARTMENT OF | [address] | [place] [address] | | | PATHOLOGY | [address] | | | + + + + + | [facility] DEPARTMENT OF | [address] | [place] [address] | | | PATHOLOGY | [address] [...] DEPARTMENT OF | [address] | [place] [address] | | | PATHOLOGY | [address] | | | + + + + + | [facility] DEPARTMENT | [address] | [place] [address] | | | PATHOLOGY | [address] | | | + + + + + SURGICAL PATHOLOGY (10/27/2005) + + + + + + | Component | Value | Ref Range | Performed | Pathologist | | | | | At | Signature | + + + + + + | SURGICAL | SOURCE OF SPECIMEN:A | | [facility] | | | PATHOLOGY | Parietal pleura-FSSOURCE [...] M.D./ResidentChristopher | | | | | | Kamila Bates M.D., | | | | | | Ph.D./PathologistT:10/30/ [...] Lema, | | | | | | M.DAngelita / Resident and | | | | [...] A | | | | | | employee's representative section | | | | | [...] noted. | | | | | | [employer] | | | | | | sections [...] | | | | | | | M.D.,Ph.D.PathologistEle | | | | | | ctronically [...] + + + + + | [facility] | [facility] | [place] [address] | | | PATHOLOGY | [address] | | | + + + + + | [facility] DEPARTMENT OF | [facility] | [place] [address] | | | PATHOLOGY | [address] [...] + + + + | PRODUCT | [id number] | | [facility] | | | UNIT [...] + + + | [facility] DEPARTMENT OF | [address] | [place] [address] | | | PATHOLOGY | [address] | | | + + + + + | [facility] DEPARTMENT OF | [address] | [place] [address] | | | PATHOLOGY | [address] | | | + + + [...] + + + + | PRODUCT | [id number] | | [facility] | | | UNIT [...] + + + | [facility] DEPARTMENT | [address] [facility] | [place] [address] | | | PATHOLOGY | [address] | | | + + + + + | [facility] DEPARTMENT | [facility] | [place] [address] | | | PATHOLOGY | [address] [...] (H) | 150 - 400 K/cu | [facility] | | | COUNT | | mm [...] + + + | [facility] DEPARTMENT OF | [facility] | [place] [address] | | | PATHOLOGY | [address] | | | + + + + + | [facility] DEPARTMENT OF | [address] | [place] [address] | | | PATHOLOGY | [address] [...] + + + + + | [facility] | [address] [facility] | [place] [address] | | | PATHOLOGY | [address] | | | + + + + + | [facility] | [address] [facility] | [place] [address] | | | PATHOLOGY | [address] [...] + + + + + | [facility] | [address] [place] [address] | [place] [address] | | | PATHOLOGY | [address] | | | + + + + + | [facility] | [address] [place] [address] | [place] [address] | | | PATHOLOGY | [address] [...] + + + + + | [facility] | [address] [facility] | [place] [address] | | | PATHOLOGY | [address] | | | + + + + + | [facility] | [address] [facility] | [place] [address] | | | PATHOLOGY | [address] | | | + + + + + PROTHROMBIN TIME (10/26/2005 10:45 AM PDT) + + + + + + | Component | Value | Ref Range | Performed | Pathologist | | | | | At | Signature | + + + + + + | INR | 1.00Comment: | 0.90 - 1.20 INR | [facility] | | | | PT INR Therapeutic [...] + + + | [facility] DEPARTMENT OF | [address] | [place] [address] | | | PATHOLOGY | [address] | | | + + + + + | [facility] | [address] | [place] [address] | | | PATHOLOGY | [address] [...] | + + + + + | [facility] DEPARTMENT OF | [address] | [place] [address] | | | PATHOLOGY | [address] | | | + + + + + | [facility] DEPARTMENT OF | [address] | [place] [address] | | | PATHOLOGY | [address] [...] + + + | [facility] DEPARTMENT OF | [address] | [place] [address] | | | PATHOLOGY | [address] | | | + + + + + | [facility] DEPARTMENT OF | [address] | [place] [address] | | | PATHOLOGY | [address] | | | + + + + + ROD CUNNINGHAM (10/22/2005 8:50 PM PDT) + + + + + + | Component | Value | Ref Range | Performed | Pathologist | | | | | At | Signature | + + + + + + | COLOR(UR) | Yellow | | [facility] | | | | | | DEPARTMENT [...] DEPARTMENT OF | [address] | [place] [address] | | | PATHOLOGY | [address] | | | + + + + + | [facility] DEPARTMENT OF | [address] | [place] [address] | | | PATHOLOGY | [address] [...] + + + + + | [facility] | [address] | [place] [address] | | | PATHOLOGY | [address] | | | + + + + + | [facility] | [address] | [place] [address] | | | PATHOLOGY | [address] [...] DEPARTMENT OF | [address] | [place] [address] | | | PATHOLOGY | [address] | | | + + + + + | [facility] DEPARTMENT OF | [address] | [place] [address] | | | PATHOLOGY | [address] [...] + + + + + | [facility] | [facility] | [place] [address] | | | PATHOLOGY | [address] | | | + + + + + | [facility] DEPARTMENT OF | [address] | [place] [address] | | | PATHOLOGY | [address] [...] + + + + + | [facility] | [address] | [place] [address] | | | PATHOLOGY | [address] | | | + + + + + | [facility] | [address] | [place] [address] | | | PATHOLOGY | [address] [...] + + + | [facility] DEPARTMENT OF | [address] [facility] | [place] [address] | | | PATHOLOGY | [address] | | | + + + + + | [facility] DEPARTMENT OF | [facility] | [place] [address] | | | PATHOLOGY | [address] | | | + + + + + documented in this encounter Visit Diagnoses Not on filedocumented in this encounter"
--- OUTSIDE RECORDS SUMMARY | ~2019-04-18 | XMS | Encounter Summary ---
Demographics + + + | Address | [address] | | | [place] [address] | + + + | Home Phone | | + + + | Preferred Language | Unknown | + + + | Marital Status | Single | + + + | Zoroastrianism Affiliation | Unknown | + + + | Race | Unknown | + + + | Ethnic Group | Unknown | + + + Author + + + | Author | [facility] | | | and [place] | + + + | Organization | [facility] | | [...] | | | | | [place] [address] | | + + + + + | Robson Min | ECON | Unknown | | + + + + + | Isabella Whitehead | ECON | Unknown | | + + + + + Care Team Providers + +------+ + | Care Captain Waiter/Waitress Name | Role | Phone | + +------+ + | Juanito Avery | DOMONIQUE | | + +------+ + Reason for Visit + + + | Reason | Comments | + + + | Follow-up | 3 month/ monitor / echo | + + + Follow Up (Routine) + +--------+ + + + + | Status | Reason | Specialty | Diagnoses / | Referred By | Referred To | | | | | Procedures | Contact | Contact | + +--------+ + + + + | Authorized | | Cardiology | Diagnoses | Bennie | Lynne | | | | | 3 month f/u | Juanito Lamar | DO Laine | | | | | w/echo and | [address] | | | | | monitor done | [address]anna | DR [address] | | | | | Procedures | [place], | [place], [place] | | | | | OFFICE | [place] [address] | [address] Phone: | | | | | VISIT | Phone: | [phone] | | | | | REGULAR | [phone] | Fax: | | | | | | Fax: | [phone] | | | | | | [phone] | | + +--------+ + + + + Encounter Details +--------+---------+ + + + | Date | Type | Department | Care Team | Description | +--------+---------+ + + + | 04/06/ | Office | [facility] | Laine Batista DO | Hypertension, | | 2019 | Visit | CARDIOLOGY [place] | [address] | unspecified type | | | | [address] [facility] | [place], [place] | (Primary Dx); Type 2 | | | | [address] | [id number] | diabetes mellitus | | | | [place], [place] | | with hyperosmolarity | | | | [address] | | without coma, | | | | [phone] | | without long-term | | | [...] + + + | Blood Pressure | 110/62 | 04/06/2019 2:00 PM | | | | | PST | | + + + + + | Pulse | 94 | 04/06/2019 2:00 PM | | | | | PST | | + + + + + | Temperature | - | - | | + + + + + | Respiratory Rate | - | - | | + + + + + | Oxygen Saturation | 91% | 04/06/2019 2:00 PM | | | | | PST | | + + + + + | Inhaled Oxygen | - | - | | | Concentration | | | | + + + + + | Weight | 101.6 kg (224 lb) | 04/06/2019 2:00 PM | | | | | PST | | + + + + + | Height | 165.1 cm (5' 5") | 04/06/2019 2:00 PM | | | | | PST | | + + + + + | Body Mass Index | 37.28 | 04/06/2019 2:00 PM | | | | | PST | | + + + + + documented in this encounter Progress Notes Laine Batista DO - 04/06/2019 1:40 PM PST [facility] Cardiology Consult Note Reason for Consultation: first degree AVB Requesting Physician: Juanito Avery Chloe History Obtained From: patient HISTORY OF PRESENT [...] She denie s any overt syncopal episodes. Interim History I last saw the patient on 01/03/2019. At that time, I ordered a 2-week event monitor as we ll as a complete echocardiogram. Her 2-week event monitor demonstrated normal sinus rhythm. She did have a brief 7-beat run of nonsustained VT. No other arrhythmias were noted. Her echocardiogram demonstrated normal left ventricular function with an ejection fraction of 7 0 percent and mild concentric LVH. There were no significant valve abnormalities on that s tudy. Recently, she has been doing about at her baseline. She continues to struggle with p ain issues from her rheumatoid arthritis. She has no new cardiac complaints today. Review of Systems Constitutional: Positive for fatigue. [...] Angina pectoris (HCC) Arrhythmia Bipolar 1 disorder (HCC) CHRONIC TENSION HEADACHE Classical migraine without mention of intractable migraine Diabetes mellitus, type 2 (HCC) Empyema lung (HCC) 2005 right GI bleeding Hypercholesterolemia Hypertension Hypothyroidism IBS (irritable bowel syndrome) Knee pain Lymphedema Myocardial infarction ([facility]) Nausea and vomiting Nocturia Obesity Panic anxiety syndrome Pneumonia Pyoderma gangreosum-LE RA (rheumatoid arthritis) ([facility]) Followed by Dr. Becerra Rheumologist in [place] Reflux esophagitis Restless leg syndrome Urinary hesitancy Vitamin D deficiency Wrist pain Past Surgical History: Procedure Laterality Date CATARACT REMOVAL Bilateral 01/2018 colonoscopy COLONOSCOPY ENDOSCOPY PMTX surgery 2006 UPPER GASTROINTESTINAL ENDOSCOPY MEDICATIONS Home Medications Outpatient Encounter Medications as of 04/06/2019 Medication Sig Dispense Refill albuterol (PROAIR HFA) 90 mcg/puff inhaler Inhale 2 puffs into the lungs every 4 hours as needed for Wheezing or Shortness of Breath. 1 Inhaler 11 AMITIZA 24 MCG capsule Take 14 mcg by mouth Daily. aspirin 81 mg EC tablet Take 81 mg by mouth Daily. atorvaSTATin (LIPITOR) 20 mg tablet Take 20 mg by mouth nightly. azaTHIOprine (IMURAN) 50 mg tablet Take 1 tablet by mouth every morning. BANOPHEN 25 MG capsule Take 25 mg by mouth nightly as needed. buprenorphine (BUTRANS) 20 mcg/hr patch Place 1 patch onto the skin Once a week. busPIRone (BUSPAR) 10 MG tablet Take 10 mg by mouth every morning. cloNIDine (CATAPRES) 0.3 mg/[address] 1 patch onto the skin Once a week. Continuous Blood Gluc Sensor (FREESTYLE HUAN 14 DAY SENSOR) MISC [DISCONTINUED] DOK 100 MG capsule Take 100 mg by mouth 2 times daily. ergocalciferol (VITAMIN D-2) 50,000 units capsule Take 50,000 Units by mouth Once a wee k. fluticasone-salmeterol (ADVAIR HFA) 115-21 MCG/ACT inhaler Inhale 2 puffs into the lung s 2 times daily. Rinse mouth and throat after use. 1 Inhaler 3 LANTUS SOLOSTAR 100 UNIT/ML injection (pen) Inject 20 Units under the skin nightly. levothyroxine (SYNTHROID) 300 mcg tablet Take 300 mcg by mouth every morning (before br eakfast). magnesium oxide (MAG-OX) 400 mg tablet Take 1 tablet by mouth Daily. metFORMIN (GLUCOPHAGE) 500 mg tablet Take 500 mg by mouth 2 times daily (with breakfast & dinner). [DISCONTINUED] metoclopramide (REGLAN) 10 mg tablet Take 10 mg by mouth as needed. [DISCONTINUED] omeprazole (PRILOSEC) 20 mg capsule Take 1 capsule by mouth every mornin g (before breakfast). 90 capsule 3 [DISCONTINUED] ondansetron (ZOFRAN) 4 mg tablet Take 4 mg by mouth as needed. pregabalin (LYRICA) 150 MG capsule Take 150 mg by mouth 2 times daily. Respiratory Therapy Supplies [facility] Portable oxygen concentrator to provide O2 at 1 l/m c ontinuous via nasal cannula. Duration: Lifetime Dx: COPD J44.9 1 each 0 [DISCONTINUED] roflumilast (DALIRESP) 500 mcg tablet Take 1 tablet by mouth Daily. (Pat ient not taking: Reported on 04/06/2019) 30 tablet 5 [DISCONTINUED] sulfaSALAzine (AZULFIDINE) 500 MG EC tablet Take 1,000 mg by mouth 2 letty es daily. tiZANidine (ZANAFLEX) 4 mg tablet Take 8 mg by mouth nightly. torsemide (DEMADEX) 20 mg tablet Take 20 mg by mouth Daily. With 5mg for total of 25mg [DISCONTINUED] torsemide (DEMADEX) 5 mg tablet Take 5 mg by mouth Daily. Take with 20mg for total of 25mg traZODone (DESYREL) 100 mg tablet Take 300 mg by mouth nightly. Varenicline Tartrate (CHANTIX PO) Take 5 mg by mouth 2 times daily. vortioxetine (TRINTELLIX) 10 mg tablet Take 10 mg by mouth every morning. [DISCONTINUED] ziprasidone (GEODON) 60 MG capsule Take 60 mg by mouth nightly. ziprasidone (GEODON) 80 MG capsule Take 80 mg by mouth nightly. No facility-administered encounter medications on file as of 04/06/2019. Allergies Allergies Allergen Reactions Adhesive & Tape [...] grad Highest education level: Not on file Occupational History Occupation: disabled Social Needs Financial resource strain: Not on file Food insecurity: Worry: Not on file Inability: Not on file Transportation needs: Medical: Not on file Non-medical: Not on file Tobacco Use Smoking status: Current Every Day Smoker Packs/day: 1.00 Years: 20.00 Pack years: 20.00 Types: Cigarettes Start date: 07/25/1983 Smokeless tobacco: Never Used Tobacco comment: 05/26/16: Currently using Chantix Substance and Sexual Activity Alcohol use: Yes Alcohol/week: 0.0 standard drinks Comment: Rare Drug use: No Comment: used to use drugs 2014 Sexual activity: Yes Partners: Male Lifestyle Physical activity: Days per week: Not on file Minutes per session: Not on file Stress: Not on file Relationships Social connections: Talks on phone: Not on file Gets together: Not on file Attends sabianism service: Not on file Active member of club or organization: Not on file Attends meetings of clubs or organizations: Not on file Relationship status: Not on file Intimate partner violence: Fear of current or ex partner: Not on file Emotionally abused: Not on file Physically abused: Not on file Forced sexual activity: Not on file Other Topics Concern Not on file Social History Narrative Lives in a [address] with her boyfriend next to her mother. PHYSICAL EXAM Vital Signs: BP 110/62 | Pulse 94 | Ht 1.651 m (5' 5") | Wt 101.6 kg (224 lb) | SpO2 91 % | BMI 37.28 kg/m Physical Exam GENERAL: ill appearing female, [...] septa l infarct age undetermined. Last Echo: 01/2019 Summary Normal left ventricular cavity size. Mild concentric left ventricular hypertrophy. Ejection fraction is visually estimated at 70%. 09/19/15 CONCLUSIONS 1. Overall left ventricular systolic function is normal with, an EF between 65 - 70 %. Last stress test: 03/2013 IMPRESSION: 1. Negative for ischemia or infarct. 2. Left ventricular ejection fraction is calculated at 60%. Last cath: Carotid US: AAA screening: Lower extremity US: OTHERS: 2 week event monitor 01/19/19 Procedure: Continuous ambulatory ECG for the duration of 14 days 15 hours and 31 minutes. During this recording, the underlying rhythm is sinus rhythm, the lowest heart rate was 50 B PM, the highest heart rate 119 BPM, averaging 73 BPM. During this recording interval, there were no atrial arrhythmias. Also, there was one run of non sustained VT that was 7 beats a t 138 BPM. There were no AV conduction abnormalities observed. The heart rate trends did de monstrate a normal circadian pattern. In the patient's diary, symptoms of dizziness, fatigu e, shortness of breath corresponded to sinus rhythm. ASSESSMENT & PLAN 1. Palpitations 2. Hypertension 3. Severe rheumatoid arthritis 4. History of pyoderma gangrenosum 5. Type 2 diabetes 6. COPD 7. Current tobacco habituation 8. Prior methamphetamine use - The patient is a 48-year-old female, who presents to the Cardiology office to follow up f or symptoms of palpitations. She underwent a recent ambulatory monitor, which demonstrated 1 short episode of nonsustained VT that was 7 beats. There were no other arrhythmias on mary t monitor. She had a recent echocardiogram, which demonstrated normal left ventricular func tion with mild concentric LVH and no significant valvular abnormalities. Recently, she has been doing about at her baseline. We reviewed her cardiac testing. At this point, I do no t believe that further cardiac workup is indicated. She can follow up with Cardiology on an as needed basis. Thank you for allowing me to participate in the care of this patient. Primary Care Physician: Juanito Batista DO 04/07/2019 documented in this enco unter Plan of [...] | | | | | | [place] | | | | | | [address] | | | | | | | | +--------+---------+ + + + documented as of this encounter Visit Diagnoses + + | Diagnosis | + + | Hypertension, unspecified type - Primary | + + | Type 2 diabetes mellitus with hyperosmolarity without coma, without long-term current | | use of insulin (HCC) | + + | Alveolar hypoventilation Other dyspnea and respiratory abnormality | + + | JESUSITA and COPD overlap syndrome (HCC) | + + documented in this encounter
--- OUTSIDE RECORDS SUMMARY | ~2019-04-18 | XMS | Encounter Summary ---
Demographics + + + | Address | [address] | | | [place] [address] | + + + | Home Phone [...] | | | | | [place] [address] | | + + + + + Care Team Providers + +------+ + | Care Hospice Plan Administrator Name | Role | Phone | + +------+ + PCP | Unavailable | + +------+ + Encounter Details +--------+ + + + + | Date | Type | Department | Care Team | Description | +--------+ + + + + | 11/01/ | Respiratory | | Other, Faculty | | | 2006 | Therapy | | [phone] | | +--------+ + + + + [...] | | | Y | Lisa Wahl, TOOL AND DIE MANAGER | | | | + + [...] [facility] | [address] | [place], [place] | | | DIAGNOSTICS - | [place] | [address] | | | PULMONARY FUNCTION | | | | + + + + + documented in this encounter Visit Diagnoses Not on filedocumented in this encounter"
--- OUTSIDE RECORDS SUMMARY | ~2019-04-18 | XMS | Encounter Summary ---
Demographics + + + | Address | [address] | | | [place] [address] | + + + | Home Phone [...] | | | | | [place] [address] | | + + + + + | Robson Min | ECON | Unknown | | + + + + + | Isabella Whitehead | ECON | Unknown | | + + + + + Care Team Providers + +------+ + | Care Marble Installer Supervisor Name | Role | Phone | [...] | | | | | | kidney ([facility]) | | | | | | | [...] | Visit | HOSPITAL NEUROLOGY | Theo, FINGER LIFT OPERATOR [address] | disorientation | | | | CLINIC [address] | [address] [facility], | | | | | [address] [place], | [place] [address] | | | | | [place] [address] | [phone] | | | | | [phone] | | | +--------+---------+ + + + [...] documented in this encounter Progress Notes Theo oPtter FNP - 08/15/2018 8:15 AM PDT I [...] it was 260. Pt t ransported to [facility]./MARTHA Zacarias documented in thi s [...] [place] | | | | | | [address] | | | | | | | | +--------+---------+ + + + | 07/26/ | Office | Pulmonology | Navdeep [place], | | | 2019 | Visit | | MD Cely GORE | | | | | | [place] | | | | | | [address] | | | | | | | | +--------+---------+ + + + documented as of this encounter Visit Diagnoses + + | Diagnosis | + + | Confusion and disorientation | + + documented in this encounter"
--- OUTSIDE RECORDS SUMMARY | ~2019-04-18 | XMS | Encounter Summary ---
Demographics + + + | Address | [address] | | | [place] [address] | + + + | Home Phone [...] | | | | | [place] [address] | | + + + + + | Robson Min | ECON | Unknown | | + + + + + | Isabella Whitehead | ECON | Unknown | | + + + + + Care Team Providers + +------+ + | Care Author Agent Name | Role | Phone | + [...] RN | hypoventilation | | | | [place], | | | | | | [place] [address] | | | | | | [phone] | | | +--------+ + + + [...] [place] | | | | | | [address] | | | | | | | | +--------+---------+ + + + | 07/26/ | Office | Pulmonology | Navdeep [place], | | | 2019 | Visit | | [address] | | | | | | [place] | | | | | | [address] | | | | | | | | +--------+---------+ + + + documented as of this encounter Visit Diagnoses + + | Diagnosis | + + | Alveolar hypoventilation Other dyspnea and respiratory abnormality | + + documented in this encounter"
--- OUTSIDE RECORDS SUMMARY | ~2019-04-18 | XMS | Encounter Summary ---
Demographics + + + | Address | [address] | | | [place] [address] | + + + | Home Phone [...] + | Author | [facility] | | | and [place] | + + + | Organization | [facility] | | | and [...] | | | | | [place] [address] | | + + + + + | Robson Min | ECON | Unknown | | + + + + + | Isabella Whitehead | ECON | Unknown | | + + + + + Care Team Providers + +------+ + | Care Invas Tech Name | Role | Phone | + [...] | SR | | | | | [phone] | | | +--------+ + + + [...] [place] | | | | | | [address] | | | | | | | | +--------+---------+ + + + | 07/26/ | Office | Pulmonology | Navdeep Grande, | | | 2019 | Visit | | MD Cely GORE | | | | | | [place] | | | | | | [address] | | | | | | | | +--------+---------+ + + + documented as of this encounter Visit Diagnoses Not on filedocumented in this encounter
--- OUTSIDE RECORDS SUMMARY | ~2019-04-18 | XMS | Encounter Summary ---
Demographics + + + | Address | [address] | | | [place] [address] | + + + | Home Phone [...] | | | | | [place] [address] | | + + + + + Care Team Providers + +------+ + | Care Catalyst Operator Chief Name | Role | Phone | + +------+ + PCP | Unavailable | + +------+ + Encounter Details +--------+ + + + + | Date | Type | Department | Care Team | Description | +--------+ + + + + | 10/23/ | Results | | Ayo Calabrese MD | | | 2006 | Only | | | | +--------+ [...] as of this encounter Plan of Treatment + +---------+--------+ + + | Name | Type | Priori | Associated Diagnoses | Date/Time | | | | ty | | | + +---------+--------+ + + | CHEST 2 VIEW | Imaging | Routin | | 10/23/2005 8:47 AM | | | | e | | PDT | + +---------+--------+ + + documented as of this encounter Procedures + +--------+ + + + | Procedure Name | Priori | Date/Time | Associated Diagnosis | Comments | | | ty | | | | + +--------+ + + + | X-RAY CHEST 1 VIEW | Routin | 10/23/2005 | | Results for this | | | e | 9:17 AM | | procedure are in the | | | | PDT | | results section. | + +--------+ + + + documented in this encounter Results CHEST 1 VIEW (10/23/2005 9:17 AM PDT) + + + + + + | Component | Value | Ref Range | Performed | Pathologist | | | | | At | Signature | + + + + + + | CHEST, 1 | Radiologist 1: ALESSANDRO, | | | | | VIEW | VIOLET CuevasEXAM: AP | | | | | | chest. COMPARISON: None | | | | | | INDICATION: Chest tube, | | | | | | possible empyema | | | | | | FINDINGS: Right sided | | | | | | Chest tube overlies the | | | | | | lower hemithorax.There | | | | | | is no pneumothorax, | | | | | | although persistent | | | | | | right pleuralthickening | | | | | | is present. | | | | | | Atelectasis involving | | | | | | the right middle | | | | | | andlower lobes are | | | | | | noted. Mild left lower | | | | | | lobe atelectasis | | | | | | ispresent. There is no | | | | | | pulmonary edema or | | | | | | pleural effusion. | | | | | | IMPRESSION: 1. | | | | | | Persistent atelectasis | | | | | | involving the right | | | | | | middle and lowerlobes, | | | | | | presumably secondary to | | | | | | visceral pleural | | | | | | thickening and | | | | | | apartially trapped right | | | | | | lower lobe. No | | | | | | residual pneumothorax | | | | | | isseen on this single AP | | | | | | radiograph. | | | | + + + [...]
--- OUTSIDE RECORDS SUMMARY | ~2019-04-18 | XMS | Encounter Summary ---
Demographics + + + | Address | [address] | | | [place] [address] | + + + | Home Phone | | + + + | Preferred Language | Unknown | + + + | Marital Status | Single | + + + | Yazidism Affiliation | CHR | + + + [...] | | | | | [place] [address] | | + + + + + Care Team Providers + +------+ + | Care Joint Special Operations Name | Role | Phone | + +------+ + PCP | Unavailable | + +------+ + Encounter Details +--------+ + + + + | Date | Type | Department | Care Team | Description | +--------+ + + + + | 12/04/ | Results | | Emilee, | | | 2002 | Only | | [facility] [address] | | | | | | [address] | | | | | | [place] [address] | | +--------+ + + + + [...] + | X-RAY CHEST 1 VIEW | Priori | 12/05/2002 | | Results for this | | | ty | 11:15 AM | | procedure are in the | | | | PDT | | results section. | + +--------+ + + + | X-RAY CHEST 1 VIEW | Routin | 12/04/2002 | | Results for this | | | e | 7:00 AM | | procedure are in the | | | | PDT | | results section. | + +--------+ + + + documented in this encounter Results CHEST 1 VIEW (12/05/2002 11:15 AM PDT) + + + + + + | Component | Value | Ref Range | Performed | Pathologist | | | | | At | Signature | + + + + + + | CHEST, 1 | Radiologist 1: EDUARDO, | | | | | VIEW | Ngoc HASSANCHEST: | | | | | | 12/05/2002 | | | | | | Dictated: 12/05/2002 | | | | | | COMPARISON: Earlier same | | | | | | day. FINDINGS: AP | | | | | | chest radiograph | | | | | | submitted. Left sided | | | | | | peripherallyinserted | | | | | | catheter has been placed | | | | | | with tip in the region | | | | | | of the cavalatrial | | | | | | junction. Right | | | | | | subclavian venous | | | | | | catheter remains in | | | | | | place.There is improved | | | | | | aeration with decreased | | | | | | areas of atelectasis. | | | | | | Smallresidual right | | | | | | pleural fluid as before. | | | | | | There is no | | | | | | pneumothorax. | | | | | | IMPRESSION: 1. Left | | | | | | peripherally inserted | | | | | | catheter placed with tip | | | | | | in the regionof the | | | | | | caval atrial junction. | | | | | | 2. Improved aeration | | | | | | with decreased areas of | | | | | | atelectasis. 3. Small | | | | | | residual right pleural | | | | | | effusion. END OF | | | | | | IMPRESSION: | | | | + + + + + + + + | Specimen | + + | | + + + +---------+ + + | Performing | Address | City/State/Zipcode | Phone Number | | Organization | | | | + +---------+ + + | [facility] DEPARTMENT OF | | | | | RADIOLOGY | | | | + +---------+ + + CHEST 1 VIEW (12/04/2002 7:00 AM PDT) + + + + + + | Component | Value | Ref Range | Performed | Pathologist | | | | | At | Signature | + + + + + + | CHEST, 1 | Radiologist 1: EDUARDO, | | | | | VIEW | Ngoc HASSAN-Radiologist | | | | | | 2: ALICE MCCOY, | | | | | | M.DAngelitaCHEST 1 VIEW: | | | | | | 12/04/2002 Dictated | | | | | | 12/04/2002 CLINICAL | | | | | | HISTORY: [age] | | | | | | year-old female with | | | | | | rheumatoid | | | | | | arthritis,follow-up | | | | | | empyema. TECHNIQUE: A | | | | | | single AP projection of | | | | | | the chest is presented | | | | | | forevaluation. | | | | | | COMPARISON: Chest | | | | | | radiograph 12/03/2002. | | | | | | FINDINGS: The side | | | | | | port of the right chest | | | | | | tube is outside of | | | | | | thepleural space. | | | | | | There is a moderate | | | | | | amount of subcutaneous | | | | | | air in theright axillary | | | | | | region. There is only | | | | | | a small residual right | | | | | | sidedempyema. The | | | | | | opacity in the left | | | | | | upper lobe noted on the | | | | | | study of 12/03/2002has | | | | | | decreased. The tip of | | | | | | the Dobbhoff tube is | | | | | | below the diaphragm but | | | | | | probably inthe gastric | | | | | | fundus and angled toward | | | | | | the gastroesophageal | | | | | | junction. IMPRESSION: | | | | | | 1. Small residual | | | | | | right empyema. The | | | | | | sideport of the chest | | | | | | tube isoutside the | | | | | | pleural space. 2. | | | | | | Resolving opacity in | | | | | | the left upper lobe. | | | | | | END OF IMPRESSION: | | | | + + + + + + + + | Specimen | + + | | + + + +---------+ + + | Performing | Address | City/State/Zipcode | Phone Number | | Organization | | | | + +---------+ + + | [facility] DEPARTMENT OF | | | | | RADIOLOGY | | | | + +---------+ + + documented in this encounter Visit Diagnoses Not on filedocumented in this encounter"
--- OUTSIDE RECORDS SUMMARY | ~2019-04-18 | XMS | Encounter Summary ---
Demographics + + + | Address | [address] | | | [place] [address] | + + + | Home Phone [...] Author + + + | Author | [facility] | + + + | Organization | [facility] | + + + | Address | Unknown | + + + | Phone | Unavailable | + + + Support + + + + + | Name | Relationship | Address | Phone | + + + + + | Scot Johnson | ECON | [address] | | | | | [place] [address] | | + + + + + Care Team Providers + +------+ + | Care Jewellery Designer Name | Role | Phone | [...] Clinic | | | | | | [facility], [address] | | | | | | [place], [place] | | | | | | [address] | | | | | | [phone] | | | +--------+ + + + [...] | + + + + + | [facility] DEPARTMENT OF | [address] | [place] [address] | | | PATHOLOGY | [address] | | | + + + + + | [facility] DEPARTMENT OF | [facility] | [place] [address] | | | PATHOLOGY | [address] [...] + + + | [facility] | [address] | [place] [address] | | | LAB-MICRO | | | | + + + + + documented in this encounter Visit Diagnoses Not on filedocumented in this encounter"
--- OUTSIDE RECORDS SUMMARY | ~2019-04-18 | XMS | Encounter Summary ---
Demographics + + + | Address | [address] | | | [place] [address] | + + + | Home Phone [...] | | | | | [place] [address] | | + + + + + Care Team Providers + +------+ + | Care Director Of Player Personnel Name | Role | Phone | + +------+ + PCP | Unavailable | + +------+ + Encounter Details +--------+ + + + + | Date | Type | Department | Care Team | Description | +--------+ + + + + | 10/22/ | Respiratory | | Other, Faculty | | | 2006 | Therapy | | [phone] | | +--------+ + + + + [...] [facility] | [address] | [place], [place] | | | DIAGNOSTICS - | [address] | [address] | | | PULMONARY FUNCTION | | | | + + + + + documented in this encounter Visit Diagnoses Not on filedocumented in this encounter"
--- OUTSIDE RECORDS SUMMARY | ~2019-04-18 | XMS | Encounter Summary ---
Demographics + + + | Address | [address] | | | [place] [address] | + + + | Home Phone | | + + + | Preferred Language | Unknown | + + + | Marital Status | Single | + + + | Latter-Day Affiliation | CHR | + + + [...] | | | | | [place] [address] | | + + + + + Care Team Providers + +------+ + | Care Floor Clerk Name | Role | Phone | + +------+ + PCP | Unavailable | + +------+ + Encounter Details +--------+ + + + + | Date | Type | Department | Care Team | Description | +--------+ + + + + | 05/16/ | Transcribed | | Dictation, Other | [...] as of this encounter Progress Notes Interface, Primary Health Care Nurse In - 03/19/2006 1:11 AM [facility] [place] [facility] [address] [place], [place] [address] or May 16, 1999 Leland Marcum D. [address] [place] [address] RE: CARLINE MIN MR #: [id number] Dear Dr. Bright: I had the pleasure of evaluating your patient, Carline Min, in Rheumatology Clinic today. As you know, she is a 28-year-old female with rheumatoid arthritis, who was previously followed in this clinic, who presents to [facility]. She has had symptoms since around 1991. Initially, she had pain involving her hips and shoulders, which subsequently spread to the knees, ankles, and wrists. She was treated initially with nonsteroidals without relief and subsequently prednisone. She was seen here in October 1997 and diagnosed with rheumatoid arthritis. She was started on methotrexate 7.5 mg per week with some improvement. She was seen again in December 1997 but subsequently had insurance problems and was lost to followup. She tells me that she got her insurance situation figured out by October and established care with you. During the interim, she had continued on 7.5 mg a week and was doing okay until the last six months. Over this time period, she has had progressive swelling and pain involving the wrists, knees, and ankles and the small joints of the hands to a lesser extent. Her hips have been okay, she says. She has morning stiffness in the range of 30 to 60 minutes. She informed me that she has been on prednisone 15 mg a day since April 28, 1999, also since that time her methotrexate was increased to 10 mg a week. She thinks that she is a little bit better since that time. REVIEW OF SYSTEMS: Most remarkable for a complaint of very poor sleep. She is told her by her bed partner that she snores very loudly and that she often stops breathing at night. She reports waking up gagging and gasping for air. She has not had a formal sleep study. PAST MEDICAL HISTORY: Significant for hypothyroidism on replacement. CURRENT MEDICATIONS: Methotrexate 10 mg per week, prednisone 15 mg a day, folate 1 mg per day, Celebrex 200 mg b.i.d., Synthroid 300 mcg per day, Triphasil control pills, vitamins. ALLERGIES: SULFA IS LISTED AN ALLERGY FOR HER, BUT SHE STATES THAT IT HAD CAUSED HEADACHES. THERE WAS NOTHING LIKE THAT SOUNDED LIKE A TRUE ALLERGIC REACTION. PHYSICAL EXAMINATION: VITAL SIGNS: Blood pressure 146/80, pulse 90, weight 288.5. GENERAL: An obese young woman very quite, no acute distress. HEENT: Unremarkable with no facial rash, ocular or oral lesions. NECK: Supple with no lymphadenopathy. LUNGS: Clear to auscultation bilaterally. CARDIOVASCULAR: Regular rate and rhythm with a 2/6 systolic murmur heard along the sternal border with no typical radiation pattern. SKIN: Negative for any rashes or fingernail changes. She does have very prominent rheumatoid nodules over the elbows and Achilles tendon. MUSCULOSKELETAL: Significant for active synovitis involving the wrists (with cystic swelling), MCPs, and PIPs. She also has significant swelling at both subtalar joints and is tender to compression of her metatarsal phalangeal joints. There are no deformities other than decreased flexion at the third proximal interphalangeal joints bilaterally. She otherwise has full range of motion and good oncology nurse strength. There is no laboratory data available for review, and she has not had any x-rays in our system. ASSESSMENT: A 28-year-old female with active nodular rheumatoid arthritis. It is unfortunate that she was lost to follow up for the last year and half as she had lots of room for improvement in her medical regimen. She is on a very low dose of methotrexate and hopefully will respond to upward titration. The goal at this point would be to get her on an adequate disease-modifying drug regimen and taper her off prednisone. There are many options at this point. Right now, I think it would make sense to simply increase the methotrexate and try to taper the prednisone over the next couple of months. She will return to clinic in about three months, at which time we will consider further options. At that time, we may add sulfasalazine and Plaquenil versus considering her for one of the studies that are currently enrolling, in particular there is a study on interleukin-1 receptor antagonist that she may be eligible for. PLAN 1. Increase methotrexate stepwise to 15 mg per week. She was instructed on how to do this. 2. We would try to taper prednisone four to six weeks from now with a goal of having her down to hopefully less than 10 mg by the next appointment here. 3. She needs screening laboratories every two months (liver function tests and complete blood count) while on methotrexate. 4. We will obtain x-rays of the hands as a baseline today. 5. Consider the addition of sulfasalazine and Plaquenil at the next appointment here. 6. We will readdress interleukin-1 receptor antagonist study at the next appointment. 7. I suggested to her that she discuss having a formal sleep study done at her next appointment with you. 8. She will return to clinic in about three months. This case was discussed with staff engineering program manager, Dr. Deyvi Lainez, who also examined the patient and agrees with the above. Thank you for allowing us to participate in the care of Mrs. Min, and please call if you wish to discuss her case any further. Lastly, we would appreciate if you could forward the results of her laboratory tests to us #[phone] (fax number). Sincerely, Ameya Steen M.D. Resident, Internal Medicine Deyvi Lainez M.D. Optical Effects Camera Operator, Rheumatology [facility] / [id number] / [id number] / [id number] / [id number] signed by Interface, Primary Health Care Nurse In at 03/19/2006 1:11 AM PSTdocume nted in this encounter Plan of Treatment Not on filedocumented as of this encounter Visit Diagnoses Not on filedocumented in this encounter"
--- OUTSIDE RECORDS SUMMARY | ~2019-04-18 | XMS | Encounter Summary ---
Demographics + + + | Address | [address] | | | [place] [address] | + + + | Home Phone | | + + + | Preferred Language | Unknown | + + + | Marital Status | Single | + + + | Nondenominational Affiliation | CHR | + + + [...] | | | | | [place] [address] | | + + + + + Care Team Providers + +------+ + | Care Tube Coater Name | Role | Phone | + [...] as of this encounter Progress Notes Interface, Crotch Piece Baster In - 01/09/2006 1:08 AM [facility] [place] [facility] [place], [place] [address] or April 04, 2001 Tracy Koo M.D. [address] [address] RE: CARLINE MIN MR #: [id number] Dear [...] her to travel all the way from [place] to [place] for these appointments, but unfortunately, I have [...] has a child and lives outside of [place], [place]. She does not smoke, drink, or [...] 2 through 5 bilaterally. She has preserved property adjuster strength, but lacks full property adjuster range of motion of 4th and 5th [...] it occurred in a local area of [place], and the patient cannot recall much information [...] patient was seen and staffed with Dr. Deyvi Lainez who agrees with the above assessment and plan. Thank you again for referring your patient to Rheumatology Clinic at [facility]. Please contact me after you receive this letter with your thoughts on Remicade in this patient. You can page me through the [facility] spraying machine operator at [phone] and ask them to page Dr. Dorene Waite, or you can leave a message and a time for me to contact you at [phone]. Our fax number at the clinic is [phone]. Sincerely Dorene Waite M.D. Rheumatology Fellow Deyvi Lainez M.D. [place] / [id number] / [id number] / [id number] / [id number] signed by Interface, Crotch Piece Baster In at 01/09/2006 1:08 AM PDTdoc umented in this encounter Plan of Treatment Not on filedocumented as of this encounter Visit Diagnoses Not on filedocumented in this encounter"
--- OUTSIDE RECORDS SUMMARY | ~2019-04-18 | XMS | Encounter Summary ---
Demographics + + + | Address | [address] | | | [place] [address] | + + + | Home Phone [...] | | | | | [place] [address] | | + + + + + Care Team Providers + +------+ + | Care Director Of Financial Reporting Name | Role | Phone | + [...] Clinic | | | | | | [facility], | | | | | | [place] [address] | | | | | | [phone] | | | +--------+ + + + [...] + + + | [facility] | [address] | [place] [address] | | | LABORATORY | | | [...] + | [facility] DEPARTMENT OF | [address] | [place] [address] | | | PATHOLOGY | [address] | | | + + + + + | [facility] DEPARTMENT OF | [address] | [place] [address] | | | PATHOLOGY | [address] | | | + + + + + documented in this encounter Visit Diagnoses Not on filedocumented in this encounter"
--- OUTSIDE RECORDS SUMMARY | ~2019-04-18 | XMS | Encounter Summary ---
Demographics + + + | Address | [address] | | | [place] [address] | + + + | Home Phone | | + + + | Preferred Language | Unknown | + + + | Marital Status | Single | + + + | Confucianism Affiliation | CHR | + + + [...] | | | | | [place] [address] | | + + + + + Care Team Providers + +------+ + | Care Commercial Real Estate Assistant Name | Role | Phone | [...] as of this encounter Progress Notes Interface, Data Integrity Consultant In - 03/19/2006 1:11 AM [facility] [place] [facility]als [facility] Clinics [facility] [address] [place], [place] [address] or May 16, 1999 Leland Marcum D. [address] [place] [address] RE: CARLINE MIN MR #: [id number] Dear Dr. Bright: I had the pleasure of evaluating your patient, Carline Min, in Rheumatology Clinic today. As you know, she is a 28-year-old female with rheumatoid arthritis, who was previously followed in this clinic, who presents to [facility]. She has had symptoms since around 1991. [...] has full range of motion and good electrotyper apprentice strength. There is no laboratory data available [...] months. This case was discussed with staff television inspector, Dr. Deyvi Lainez, who also examined the patient and agrees with the above. Thank you for allowing us to participate in the care of Mrs. Min, and please call if you wish to discuss her case any further. Lastly, we would appreciate if you could forward the results of her laboratory tests to us #[phone] (fax number). Sincerely, Ameya Steen M.D. Resident, Internal Medicine Deyvi Lainez M.D. Slasher Sawyer, Rheumatology [facility] / [id number] / [id number] / [id number] / [id number] signed by Interface, Data Integrity Consultant In at 03/19/2006 1:11 AM PSTdocume nted in this encounter Plan of Treatment Not on filedocumented as of this encounter Visit Diagnoses Not on filedocumented in this encounter"
--- OUTSIDE RECORDS SUMMARY | ~2019-04-18 | XMS | Encounter Summary ---
Demographics + + + | Address | [address] | | | [place] [address] | + + + | Home Phone [...] | | | | | [place] [address] | | + + + + + Care Team Providers + +------+ + | Care Paint Line Supervisor Name | Role | Phone | + +------+ + PCP | Unavailable | + +------+ + Encounter Details +--------+ + + + + | Date | Type | Department | Care Team | Description | +--------+ + + + + | 10/29/ | Respiratory | | Other, Faculty | | | 2006 | Therapy | | [phone] | | +--------+ + + + + [...] [facility] | [address] | [place], [place] | | | DIAGNOSTICS - | [address] | [address] | | | PULMONARY FUNCTION | | | | + + + + + documented in this encounter Visit Diagnoses Not on filedocumented in this encounter"
--- OUTSIDE RECORDS SUMMARY | ~2019-04-18 | XMS | Encounter Summary ---
Demographics + + + | Address | [address] | | | [place] [address] | + + + | Home Phone [...] | | | | | [place] [address] | | + + + + + | Robson Min | ECON | Unknown | | + + + + + | Isabella Whitehead | ECON | Unknown | | + + + + + Care Team Providers + +------+ + | Care Project Geologist Name | Role | Phone | + +------+ + | Bart Ba DO | PCP | | + +------+ + Encounter Details +--------+ + + + + | Date | Type | Department | Care Team | Description | +--------+ + + + + | 08/25/ | Hospital | [facility] | Navdeep Grande, | COPD (chronic | | 2013 | Encounter | MED CTR PULMONARY | MD [address] | obstructive | | | | FUNCTION [address] | [place], [place] | pulmonary disease) | | | | [place], | [address] | ([facility]) | | | | [place] [address] | | | | | | [phone] | | | +--------+ + + + [...] | 0 | 10/08/19 | | | [id number] | every 6 hours as | | [...] [place] | | | | | | [address] | | | | | | | | +--------+---------+ + + + | 07/26/ | Office | Pulmonology | Navdeep Grande, | | | 2019 | Visit | | [address] | | | | | | [place] | | | | | | [address] | | | | | | | [...] results section. | | | | | ([facility]) | | + +--------+ + + + [...] signed by: Navdeep Grande MD 08/25/2013 15:49 [facility] | | | [facility] | | + + + + + [...] by: | | Navdeep Grande MD 08/25/2013 15:49[facility] | |IMPRESSION: Spirometry is consistent with normal physiology. Lung volume testing is consist ent with normal physiology. Diffusion capacity is mildly reduced and was not corrected for m easured hemoglobin. | | | |No prior pulmonary function tests available for comparison | | | |Test performed: 08/25/13 | |Electronically signed by: Navdeep Grande MD 08/25/2013 15:49 | |[facility] | + + documented in this encounter Visit Diagnoses + + | Diagnosis | + + | COPD (chronic obstructive pulmonary disease) (HCC) Chronic airway obstruction, not | | elsewhere classified | + + documented in this encounter"
--- OUTSIDE RECORDS SUMMARY | ~2019-04-18 | XMS | Encounter Summary ---
Demographics + + + | Address | [address] | | | [place] [address] | + + + | Home Phone [...] | | | | | [place] [address] | | + + + + + Care Team Providers + +------+ + | Care Crankshaft Straightener Name | Role | Phone | [...] as of this encounter Discharge Summaries Interface, Installation Service Representative In - 01/21/2006 6:22 AM PDT [id number] [place] [id number] Admission Date: 10/21/2005 Discharge Date: 11/03/2005 Staff Physician: Anibal Starr M.D. Principal Final Diagnosis: Right fibrothorax. Additional Diagnoses: 1. Psychogenic polydipsia. 2. Diabetes mellitus. 3. Rheumatoid arthritis. 4. Hypertension. Principal Procedure: Right thoracotomy and decortication. Additional Procedures: 1. Epidural catheter placement. 2. Endocrine consult. 3. Pain Service consult. 4. RT consult. 5. PT/OT consult. Reason for Admission: The patient was transferred to [facility] from an outside hospital for management [...] 3 L of water a day. The client relationship manager ultimately deemed this to be a [...] within 1 week. Valerie Stone M.D. / [id number] / [id number] / [id number] / Electronically signed by Anibal Starr 01-20-2006 04:02:17 PM documented i n this encounter Plan of Treatment Not on filedocumented as of this encounter Visit Diagnoses Not on filedocumented in this encounter"
--- OUTSIDE RECORDS SUMMARY | ~2019-04-18 | XMS | Encounter Summary ---
Demographics + + + | Address | [address] | | | [place] [address] | + + + | Home Phone | | + + + | Preferred Language | Unknown | + + + | Marital Status | Single | + + + | Pentecostalism Affiliation | Unknown | + + + | Race | Unknown | + + + | Ethnic Group | Unknown | + + + Author + + + | Author | [facility] | | | and [place] | + + + | Organization | [facility] | | [...] | | | | | [place] [address] | | + + + + + | Robson Min | ECON | Unknown | | + + + + + | Isabella Whitehead | ECON | Unknown | | + + + + + Care Team Providers + +------+ + | Care Harness Mender Name | Role | Phone | + [...] Results, Imaging | | 2018 | | [facility] | [address] | | | | | CLINIC [address] | [place] | | | | | DR [address] [place], | [address] | | | | | [place] [address] | | | | | | [phone] | | | +--------+ + + + [...] [place] | | | | | | [address] | | | | | | | | +--------+---------+ + + + | 07/26/ | Office | Pulmonology | Navdeep Grande, | | | 2020 | Visit | | [address] | | | | | | [place] | | | | | | [id number] | | | | | | | | +--------+---------+ + + + documented as of this encounter Visit Diagnoses Not on filedocumented in this encounter"
--- OUTSIDE RECORDS SUMMARY | ~2019-04-18 | XMS | Encounter Summary ---
Demographics + + + | Address | [address] | | | [place] [address] | + + + | Home Phone | | + + + | Preferred Language | Unknown | + + + | Marital Status | Single | + + + | Caodaism Affiliation | CHR | + + + [...] | | | | | [place] [address] | | + + + + + Care Team Providers + +------+ + | Care Public Transit Trolley Driver Name | Role | Phone | + +------+ + PCP | Unavailable | + +------+ + Encounter Details +--------+ + + + + | Date | Type | Department | Care Team | Description | +--------+ + + + + | 10/30/ | Respiratory | | Other, Faculty | | | 2006 | Therapy | | [phone] | | +--------+ + + + + [...] Hackett, | | | | | | GAMEMASTER | | | | + + + [...] [facility] | [address] | [place], [place] | | | DIAGNOSTICS - | [address] | [address] | | | PULMONARY FUNCTION | | | | + + + + + documented in this encounter Visit Diagnoses Not on filedocumented in this encounter"
--- OUTSIDE RECORDS SUMMARY | ~2019-04-18 | XMS | Encounter Summary ---
Demographics + + + | Address | [address] | | | [place] [address] | + + + | Home Phone [...] | | | | | [place] [address] | | + + + + + Care Team Providers + +------+ + | Care Integrated Logistics Support Manager Name | Role | Phone | [...] as of this encounter Discharge Summaries Interface, Multimedia Teacher In - 01/21/2006 6:22 AM PDT [id number] [place] [id number] Admission Date: 10/21/2005 Discharge Date: 11/03/2005 Staff Physician: Anibal Starr M.D. Principal Final Diagnosis: Right fibrothorax. Additional Diagnoses: 1. Psychogenic polydipsia. 2. Diabetes mellitus. 3. Rheumatoid arthritis. 4. Hypertension. Principal Procedure: Right thoracotomy and decortication. Additional Procedures: 1. Epidural catheter placement. 2. Endocrine consult. 3. Pain Service consult. 4. RT consult. 5. PT/OT consult. Reason for Admission: The patient was transferred to [facility] from an outside hospital for management [...] 3 L of water a day. The director marketing ultimately deemed this to be a psychogenic [...] within 1 week. Valerie Stone M.D. / [id number] / [id number] / [id number] / Electronically signed by Anibal Starr 01-20-2006 04:02:17 PM documented i n this encounter Plan of Treatment Not on filedocumented as of this encounter Visit Diagnoses Not on filedocumented in this encounter"
--- OUTSIDE RECORDS SUMMARY | ~2019-04-18 | XMS | Encounter Summary ---
Demographics + + + | Address | [address] | | | [place] [address] | + + + | Home Phone [...] | | | | | [place] [address] | | + + + + + | Robson Min | ECON | Unknown | | + + + + + | Isabella Whitehead | ECON | Unknown | | + + + + + Care Team Providers + +------+ + | Care Grain Packer Name | Role | Phone | + [...] [address] | | | | | [phone] | [place] [address] | | +--------+ + + + + [...] [place] | | | | | | [address] | | | | | | | | +--------+---------+ + + + | 07/26/ | Office | Pulmonology | Navdeep Grande, | | | 2019 | Visit | | [address] | | | | | | [place] | | | | | | [address] | | | | | | | [...]
--- OUTSIDE RECORDS SUMMARY | ~2019-04-18 | XMS | Encounter Summary ---
Demographics + + + | Address | [address] | | | [place] [address] | + + + | Home Phone [...] | | | | | [place] [address] | | + + + + + | Robson Min | ECON | Unknown | | + + + + + | Isabella Whitehead | ECON | Unknown | | + + + + + Care Team Providers + +------+ + | Care Salt Washer Name | Role | Phone | + [...] | nocturnal pulse | | | | [place], | [place] | oximetry on O2 at 1 | | | | [place] [address] | [address] | l/m) | | | | [phone] | | | +--------+ + + + [...] [place] | | | | | | [address] | | | | | | | | +--------+---------+ + + + | 07/26/ | Office | Pulmonology | Navdeep Grande, | | | 2019 | Visit | | [address] | | | | | | [place] | | | | | | [address] | | | | | | | | +--------+---------+ + + + documented as of this encounter Visit Diagnoses Not on filedocumented in this encounter"
--- OUTSIDE RECORDS SUMMARY | ~2019-04-18 | XMS | Encounter Summary ---
Demographics + + + | Address | [address] | | | [place] [address] | + + + | Home Phone | | + + + | Preferred Language | Unknown | + + + | Marital Status | Single | + + + | Taoism Affiliation | Unknown | + + + [...] | | | | | [place] [address] | | + + + + + | Robson Min | ECON | Unknown | | + + + + + | Isabella Whitehead | ECON | Unknown | | + + + + + Care Team Providers + +------+ + | Care Stain Dipper Name | Role | Phone | + [...] Zhou PEARSON | | | | | [phone] | [place] [address] | | +--------+ + + + + [...] [place] | | | | | | [address] | | | | | | | | +--------+---------+ + + + | 07/26/ | Office | Pulmonology | Navdeep Grande, | | | 2019 | Visit | | [address] | | | | | | [place] | | | | | | [address] | | | | | | | [...]
--- OUTSIDE RECORDS SUMMARY | ~2019-04-18 | XMS | Encounter Summary ---
Demographics + + + | Address | [address] | | | [place] [address] | + + + | Home Phone [...] | | | | | [place] [address] | | + + + + + | Robson Min | ECON | Unknown | | + + + + + | Isabella Whitehead | ECON | Unknown | | + + + + + Care Team Providers + +------+ + | Care Extension Service Specialist In Charge Name | Role | Phone | + +------+ + | Ora Slater | PCP | | + +------+ + Encounter Details +--------+ + + + + | Date | Type | Department | Care Team | Description | +--------+ + + + + | 12/15/ | Orders Only | [facility] | Maxine Wadsworth | | | 2019 | | PULMONARY [address] | M, Therapy Manager | | | | | [place], | | | | | | [place] [address] | | | | | | [phone] | | | +--------+ + + + [...] [place] | | | | | | [address] | | | | | | | | +--------+---------+ + + + | 07/26/ | Office | Pulmonology | Navdeep Grande, | | | 2019 | Visit | | MD [address] | | | | | | [place] | | | | | | [address] | | | | | | | | +--------+---------+ + + + documented as of this encounter Visit Diagnoses Not on filedocumented in this encounter"
--- OUTSIDE RECORDS SUMMARY | ~2019-04-18 | XMS | Clinical Summary ---
Demographics + + + | Address | [address] | | | [place] [address] | + + + | Home Phone | | + + + | Preferred Language | Unknown | + + + | Marital Status | Single | + + + | Protestant Affiliation | Unknown | + + + | Race | Unknown | + + + | Ethnic Group | Unknown | + + + Author + + + | Author | [employer] (Historical as of | | | 12-03-18) | + + + | Organization | [employer] [employer] (Historical as of | | | 12-03-18) [...] Team Providers + +------+ + | Care Steel Worker Name | Role | Phone | [...] | | | | Activ | | kghxjmidmv-jqrbpae-y | mouth every 4 (four) | | [...] +------+-------+ + | MEDICAID | JOSEER | [id number] | | | [address] | | | N | | | | [place] | | | [place] | | | | [address] | | | CHEMIST INTERN | | | | | + +--------+ [...] | kristy | | | [address] | [address] | + +--------+ +--------+ + +
--- OUTSIDE RECORDS SUMMARY | ~2019-04-18 | XMS | Encounter Summary ---
Demographics + + + | Address | [address] | | | [place] [address] | + + + | Home Phone | | + + + | Preferred Language | Unknown | + + + | Marital Status | Single | + + + | Zoroastrianism Affiliation | CHR | + + + [...] | | | | | [place] [address] | | + + + + + Care Team Providers + +------+ + | Care Mail Officer Name | Role | Phone | [...] | | | | | [place] [address] | | +--------+ + + + + [...] | | + +---------+ + + | [facility] DEPARTMENT OF | | | [...] | | + +---------+ + + | [facility] DEPARTMENT OF | | | | | RADIOLOGY | | | | + +---------+ + + documented in this encounter Visit Diagnoses Not on filedocumented in this encounter"
--- OUTSIDE RECORDS SUMMARY | ~2019-04-18 | XMS | Encounter Summary ---
Demographics + + + | Address | [address] | | | [place] [address] | + + + | Home Phone | | + + + | Preferred Language | Unknown | + + + | Marital Status | Single | + + + | Orthodox Affiliation | Unknown | + + [...] | | | | | [place] [address] | | + + + + + | Robson Min | ECON | Unknown | | + + + + + | Isabella Whitehead | ECON | Unknown | | + + + + + Care Team Providers + +------+ + | Care Fish Hatchery Inspector Name | Role | Phone | [...] 2019 | | HOSPITAL NEUROLOGY | Theo, [facility] [address] | Authorization | | | | CLINIC [address] | [facility], | (Botox) | | | | DR [place]AC[place], | [place] [address] | | | | | [place] [address] | [phone] | | | | | [phone] | | | +--------+ + + + [...] [place] | | | | | | [address] | | | | | | | | +--------+---------+ + + + | 07/26/ | Office | Pulmonology | Navdeep Grande, | | | 2020 | Visit | | MD [address] | | | | | | [place] | | | | | | [address] | | | | | | | | +--------+---------+ + + + documented as of this encounter Visit Diagnoses Not on filedocumented in this encounter"
--- OUTSIDE RECORDS SUMMARY | ~2019-04-18 | XMS | Encounter Summary ---
Demographics + + + | Address | [address] | | | [place] [address] | + + + | Home Phone | | + + + | Preferred Language | Unknown | + + + | Marital Status | Single | + + + | Temple Affiliation | Unknown | + + + | Race | Unknown | + + + | Ethnic Group | Unknown | + + + Author + + + | Author | [facility] | | | and [place] | + + + | Organization | [facility] | | [...] | | | | | [place] [address] | | + + + + + | Robson Escobar | ECON | Unknown | | + + + + + | Isabella Whitehead | ECON | Unknown | | + + + + + Care Team Providers + +------+ + | Care Cement Crusher Operator Name | Role | Phone | [...] + + | 04/04/ | Office | [facility] | Navdeep Grande, | Abnormal chest CT | | 2011 | Visit | PULMONARY [address] | MD [address] | (Primary Dx) | | | | [place], | [place] | | | | | [place] [address] | [address] | | | | | [phone] | | | +--------+---------+ + + + [...] FLEXPEN SC), SOLN, Disp: , Rfl: ; pjcjuelhav-txqphgn-gkhknosh (BUTALBITAL COMPOUND/ A) per tablet, One tablet [...] occur. 4. Smoking cessation encouraged. CC: Bart Ba documented in this encounter [...] [place] | | | | | | [address] | | | | | | | | +--------+---------+ + + + | 07/26/ | Office | Pulmonology | Navdeep Grande, | | | 2019 | Visit | | MD [address] | | | | | | [place] | | | | | | [address] | | | | | | | | +--------+---------+ + + + documented as of this encounter Results XR Chest PA and Lateral (10/18/2012 11:44 AM PDT) + + | Specimen | + + | | + + + + + | Narrative | Performed At | + + + | [facility] | [place] | | Department [address] [place] [address] | [facility] | | [ rep [address]] [ rep [facility] | | st zip] Signed | - IMAGING | | | | | Patient Name: CARLINE ESCOBAR Physician: | | | : 1970 Age: 42 Sex: F Unit #: [id number] | | | Exam Date: 10/18/12 [place] [facility] [place] | | | Report #: [id number] Page: | | | %(RAD)RES..mtdd.print.filter("pg") of %(RAD) | | | RES..mtdd.print.filter("tpg") | | | | | | Accession Number: [id number] | | | TWO VIEW CHEST CLINICAL [...] Transcribed Date/Time: 10/18/2012 12:20 | | | Photoengraver Apprentice: <<Signature on | | | File>> | | | Ace Avery MD10/18/12 1439 <Electronically signed by | | | Ace Avery MD> Ace Avery MD 10/18/12 | | | 1144 Photoengraver Apprentice: [employer] Esvzwuvoycbzi47/02/13 1220 | | | Navdeep Grande MD | | + + + + + + + + | Performing | Address | City/State/Zipcode | Phone Number | | Organization | | | | + + + + + | [facility] | [address] | [place], [place] | [phone] | | [facility] | | [address] | | | - IMAGING | | | | + + + + + documented in this encounter Visit Diagnoses + + | Diagnosis | + + | Abnormal chest CT - Primary Nonspecific (abnormal) findings on radiological and other | | examination of other intrathoracic organs | + + documented in this encounter
--- OUTSIDE RECORDS SUMMARY | ~2019-04-18 | XMS | Encounter Summary ---
Demographics + + + | Address | [address] | | | [place] [address] | + + + | Home Phone | | + + + | Preferred Language | Unknown | + + + | Marital Status | Single | + + + | Catholic Affiliation | Unknown | + + [...] | | | | | [place] [address] | | + + + + + | Robson Min | ECON | Unknown | | + + + + + | Isabella Whitehead | ECON | Unknown | | + + + + + Care Team Providers + +------+ + | Care Business Leader Name | Role | Phone | + [...] (Primary Dx) | | | | [place] [address] | | | | | | [phone] | | | +--------+ + + + [...] [place] | | | | | | [address] | | | | | | | | +--------+---------+ + + + | 07/26/ | Office | Pulmonology | Navdeep Grande, | | | 2019 | Visit | | MD [address] | | | | | | [place] | | | | | | [address] | | | | | | | [...]
--- OUTSIDE RECORDS SUMMARY | ~2019-04-18 | XMS | Encounter Summary ---
Demographics + + + | Address | [address] | | | [place] [address] | + + + | Home Phone | | + + + | Preferred Language | Unknown | + + + | Marital Status | Single | + + + | Alevism Affiliation | Unknown | + + + | Race | Unknown | + + + | Ethnic Group | Unknown | + + + Author + + + | Author | [facility] | | | and [place] | + + + | Organization | [facility] | | [...] | | | | | [place] [address] | | + + + + + | Robson Min | ECON | Unknown | | + + + + + | Isabella Whitehead | ECON | Unknown | | + + + + + Care Team Providers + +------+ + | Care Electrical Prospecting Operator Name | Role | Phone | + +------+ + | Bart Ba DO | PCP | | + +------+ + Encounter Details +--------+ + + + + | Date | Type | Department | Care Team | Description | +--------+ + + + + | 04/21/ | Hospital | [facility] | Conversion | Pain | | 2013 | Encounter | CONVERSION DEP [address] | Transaction, | | | | | [address] | Provider Unknown | | | | | [place], [place] | [phone] | | | | | [address] | | | | | | [phone] | | | +--------+ + + + [...] | 0 | 10/08/19 | | | srbhucxmhu-twiaohc-u | every 6 hours as | | [...] [place] | | | | | | [address] | | | | | | | | +--------+---------+ + + + | 07/26/ | Office | Pulmonology | Navdeep Grande, | | | 2019 | Visit | | [address] | | | | | | [place] | | | | | | [address] | | | | | | | [...]
--- OUTSIDE RECORDS SUMMARY | ~2019-04-18 | XMS | Encounter Summary ---
Demographics + + + | Address | [address] | | | [place] [address] | + + + | Home Phone [...] | | | | | [place] [address] | | + + + + + | Robson Min | ECON | Unknown | | + + + + + | Isabella Whitehead | ECON | Unknown | | + + + + + Care Team Providers + +------+ + | Care Pocket Assembler Name | Role | Phone | [...] | COPD (chronic | | 2013 | Visit | PULMONARY [address] | MD [address] | obstructive | | | | [place], | [place], [place] | pulmonary disease) | | | | [place] [address] | [address] | ([facility]) (Primary Dx) | | | | [phone] | | | +--------+---------+ + + + [...] October. The patient was apparently hospitalized at [facility] in [facility] in March 2013 for pneumonia. Therapy consisted of antibiotics and supplemental oxygen. The patient was discharged home on oxygen at 1 L per minute. She is subsequently been told by Dr. Ba wear supplemental oxygen at night while she sleeps. The patient was placed on [facility] at [facility]. Kait has questions regarding whether she still [...] Date Wrist pain Diabetes mellitus, type 2 ([facility]) Vitamin D deficiency Hypercholesterolemia Hypothyroidism Panic anxiety syndrome IBS (irritable bowel syndrome) Restless leg syndrome Urinary hesitancy Lumbago Nocturia Pyoderma gangreosum-LE Bipolar 1 disorder ([facility]) Hypertension Lymphedema Nausea and vomiting Reflux esophagitis GI bleeding Empyema lung ([facility]) 2005 right Knee pain CHRONIC [...] 4 times daily., Disp: , Rfl: ; uzlonsbhrt-zkmbdzb-gflhpwbq (BUTALBITA L COMPOUND/ASA) per tablet, One tablet [...] Rfl: ; ziprasidone (GEODON) 60 MG cap felix, Take 80 mg by mouth Daily., Disp: [...] i n approximately 2 weeks. CC: Bart Ray Ba documented in this encounter Plan of [...] [place] | | | | | | [address] | | | | | | | | +--------+---------+ + + + | 07/26/ | Office | Pulmonology | Navdeep Grande, | | | 2019 | Visit | | MD Cely GORE | | | | | | [place] | | | | | | [address] | | | | | | | [...] | 08/22/2014 | | | | | (HCC) | | + + +--------+ + + documented as of this encounter Results PFT PULMONARY FUNCTION TESTING ORDERS Full PFT (Singer w/BD, lung volumes, diffusion)?: Yes; Rest and [...] signed by: Navdeep Grande MD 08/25/2013 15:49 [facility] | | | [facility] | | + + + + + [...] | | Navdeep Grande MD 08/25/2013 15:49[facility] | |IMPRESSION: Spirometry is consistent with normal physiology. Lung volume testing is consist ent with normal physiology. Diffusion capacity is mildly reduced and was not corrected for m easured hemoglobin. | | | |No prior pulmonary function tests available for comparison | | | |Test performed: 08/25/13 | |Electronically signed by: Navdeep Grande MD 08/25/2013 15:49 | |[facility] | + + documented in this encounter Visit Diagnoses + + | Diagnosis | + + | COPD (chronic obstructive pulmonary disease) (HCC) - Primary Chronic airway | | obstruction, not elsewhere classified | + + documented in this encounter
--- OUTSIDE RECORDS SUMMARY | ~2019-04-18 | XMS | Encounter Summary ---
Demographics + + + | Address | [address] | | | [place] [address] | + + + | Home Phone | | + + + | Preferred Language | Unknown | + + + | Marital Status | Single | + + + | Temple Affiliation | Unknown | + + + | Race | Unknown | + + + | Ethnic Group | Unknown | + + + Author + + + | Author | [facility] | | | and [place] | + + + | Organization | [facility] | | [...] | | | | | [place] [address] | | + + + + + | Robson Min | ECON | Unknown | | + + + + + | Isabella Whitehead | ECON | Unknown | | + + + + + Care Team Providers + +------+ + | Care Gutter Installer Name | Role | Phone | [...] Zhou PEARSON | | | | | [phone] | [place] [address] | | +--------+ + + + + [...] [place] | | | | | | [address] | | | | | | | | +--------+---------+ + + + | 07/26/ | Office | Pulmonology | Navdeep Grande, | | | 2019 | Visit | | [address] | | | | | | [place] | | | | | | [address] | | | | | | | [...]
--- OUTSIDE RECORDS SUMMARY | ~2019-04-18 | XMS | Encounter Summary ---
Demographics + + + | Address | [address] | | | [place] [address] | + + + | Home Phone | | + + + | Preferred Language | Unknown | + + + | Marital Status | Single | + + + | Jewish Affiliation | CHR | + + + [...] | | | | | [place] [address] | | + + + + + Care Team Providers + +------+ + | Care Getter Operator Name | Role | Phone | [...] + + + + + | [facility] | [address] [place] [address] | [place] [address] | | | PATHOLOGY | [address] | | | + + + + + | [facility] | [address] [place] [address] | [place] [address] | | | PATHOLOGY | [address] [...] DEPARTMENT OF | [address] | [place] [address] | | | PATHOLOGY | [address] | | | + + + + + | [facility] DEPARTMENT OF | [address] | [place] [address] | | | PATHOLOGY | [address] [...] + + + + + | [facility] | [address] | [place] [address] | | | PATHOLOGY | [address] | | | + + + + + | [facility] | [address] | [place] [address] | | | PATHOLOGY | [address] [...] | + + + + + | [facility] | [address] | [place] [address] | | | LAB-MICRO | | | [...] | + + + + + | [facility] | [address] | [place] [address] | | | LAB-MICRO | | | [...] + + + | [facility] | [address] | [place] [address] | | | LAB-MICRO | | | [...] + + + | [facility] | [address] | [place] [address] | | | LAB-MICRO | | | [...] | + + + + + | [facility] DEPARTMENT OF | [facility] | [place] [address] | | | PATHOLOGY | [address] | | | + + + + + | [facility] DEPARTMENT OF | [facility] | [place] [address] | | | PATHOLOGY | [address] [...] | + + + + + | [facility] DEPARTMENT OF | [address] | [place] [address] | | | PATHOLOGY | [address] | | | + + + + + | [facility] DEPARTMENT OF | [address] | [place] [address] | | | PATHOLOGY | [address] [...] + + + + + | [facility] | [address] | [place] [address] | | | PATHOLOGY | [address] | | | + + + + + | [facility] | [address] | [place] [address] | | | PATHOLOGY | [address] [...] OF | [address] | [place] [address] | | | PATHOLOGY | [address] | | | + + + + + | [facility] DEPARTMENT OF | [address] | [place] [address] | | | PATHOLOGY | [address] [...] DEPARTMENT OF | [address] | [place] [address] | | | PATHOLOGY | [address] | | | + + + + + | [facility] | [address] | [place] [address] | | | PATHOLOGY | [address] [...]
--- OUTSIDE RECORDS SUMMARY | ~2019-04-18 | XMS | Encounter Summary ---
Demographics + + + | Address | [address] | | | [place] [address] | + + + | Home Phone [...] Author + + + | Author | [facility] | + + + | Organization | [facility] | + + + | Address | Unknown | + + + | Phone | Unavailable | + + + Support + + + + + | Name | Relationship | Address | Phone | + + + + + | Scot Johnson | ECON | [address] | | | | | [place] [address] | | + + + + + Care Team Providers + +------+ + | Care Appraiser Timber Name | Role | Phone | + +------+ + | Bart Ba DO | PCP | | + +------+ + Encounter Details +--------+ + + + + | Date | Type | Department | Care Team | Description | +--------+ + + + + | 12/12/ | Telephone | Dermatology | Azucena Jacobson MD | | | 2007 | | Medical at [facility] | [address] | | | | | Floor [address] [facility] | | | | | Cyndi Mailcode: CH16D | [place] [address] | | | | | [facility] | [phone] | | | | | and Healing, | | | | | | | | | | | | Floor [place], [place] | | | | | | [address] | | | | | | [phone] | | | +--------+ + + + [...]
--- OUTSIDE RECORDS SUMMARY | ~2019-04-18 | XMS | Encounter Summary ---
Demographics + + + | Address | [address] | | | [place] [address] | + + + | Home Phone [...] | | | | | [place] [address] | | + + + + + | Robson Min | ECON | Unknown | | + + + + + | Isabella Whitehead | ECON | Unknown | | + + + + + Care Team Providers + +------+ + | Care Advisory Intern Name | Role | Phone | + +------+ + | Bart Ba DO | PCP | | + +------+ + Encounter Details +--------+ + + + + | Date | Type | Department | Care Team | Description | +--------+ + + + + | 10/18/ | Hospital | [facility] | Navdeep Grande, | Abnormal chest CT | | 2012 | Encounter | MED CTR XRAY [address] | MD [address] | | | | | [place] | [place], [place] | | | | | [place] [address] | [address] | | | | | [phone] | | | +--------+ + + + [...] | 0 | 10/08/19 | | | vorjlrykck-kszhjbo-f | every 6 hours as | | [...] [place] | | | | | | [id number] | | | | | | | | +--------+---------+ + + + | 07/26/ Office | Pulmonology | Navdeep Grande, | | | 2019 | Visit | | [address] | | | | | | [place] | | | | | | [address] | | | | | | | | +--------+---------+ + + + documented as of this encounter Procedures + +--------+ + + + | Procedure Name | Priori | Date/Time | Associated Diagnosis | Comments | | | ty | | | | + +--------+ + + + | XR CHEST PA AND | Routin | 10/18/2012 | Abnormal chest CT | Results for this | | LATERAL | e | 11:44 AM | | procedure are in the | | | | PDT | | results section. | + +--------+ + + + documented in this encounter Results XR Chest PA and Lateral (10/18/2012 11:44 AM PDT) + + | Specimen | + + | | + + + + + | Narrative | Performed At | + + + | [facility] | NORMAL | | Department [address] | [facility] | | [ rep ct [address]] [ rep [facility] | | st zip] Signed | - IMAGING | | | | | Patient Name: CARLINE MIN Physician: | | | RODRI : 1970 Age: 42 Sex: F Unit #: [id number] | | | Exam Date: 10/18/12 Location: [facility] | | | Report #: [id number] Page: | | | %(RAD)RES..mtdd.print.filter("pg") of %(RAD) | | | RES..mtdd.print.filter("tpg") | | | | | | Accession Number: [id number] | | | TWO VIEW CHEST CLINICAL [...] Transcribed Date/Time: 10/18/2012 12:20 | | | Back Shoe Cutter: <<Signature on | | | File>> | | | Ace Avery MD10/18/12 1439 <Electronically signed by | | | Ace Avery MD> Ace Avery MD 10/18/12 | | | [address] Sh[address] Cutter: Maria L Ofjrzickqmiol59/02/13 1220 | | | Navdeep Grande MD | | + + + + + + + + | Performing | Address | City/State/Zipcode | Phone Number | | Organization | | | | + + + + + | [facility] | [address] | [place] | [phone] | | [facility] | | [address] | | | - IMAGING | | | | + + + + + documented in this encounter Visit Diagnoses + + | Diagnosis | + + | Abnormal chest CT Nonspecific (abnormal) findings on radiological and other | | examination of other intrathoracic organs | + + documented in this encounter
--- OUTSIDE RECORDS SUMMARY | ~2019-04-18 | XMS | Encounter Summary ---
Demographics + + + | Address | [address] | | | [place] [address] | + + + | Home Phone [...] Author + + + | Author | [facility] | + + + | Organization | [facility] | + + + | Address | Unknown | + + + | Phone | Unavailable | + + + Support + + + + + | Name | Relationship | Address | Phone | + + + + + | Soct Johnson | ECON | [address] | | | | | [place] [address] | | + + + + + Care Team Providers + +------+ + | Care Electrical Accessories Assembler Name | Role | Phone | [...] Clinic | | | | | | [facility], | | | | | | [place] [address] | | | | | | [phone] | | | +--------+ + + + [...] + + + | [facility] | [address] | [place] [address] | | | LABORATORY | | | [...] + | [facility] DEPARTMENT OF | [address] | [place] [address] | | | PATHOLOGY | [address] | | | + + + + + | [facility] DEPARTMENT OF | [address] | [place] [address] | | | PATHOLOGY | [address] | | | + + + + + documented in this encounter Visit Diagnoses Not on filedocumented in this encounter"
--- OUTSIDE RECORDS SUMMARY | ~2019-04-18 | XMS | Encounter Summary ---
Demographics + + + | Address | [address] | | | [place] [address] | + + + | Home Phone [...] | | | | | [place] [address] | | + + + + + | Robson Min | ECON | Unknown | | + + + + + | Isabella Whitehead | ECON | Unknown | | + + + + + Care Team Providers + +------+ + | Care Refurbish Technician Name | Role | Phone | [...] (Primary Dx) | | | | [place] [address] | | | | | | [phone] | | | +--------+ + + + [...] | 06/19/ | Office | Neurology | Jimob Samayoa MD | | | 2020 | Visit | | [address] | | | | | | [place] | | | | | | [address] | | | | | | | | +--------+---------+ + + + | 07/26/ | Office | Pulmonology | Navdeep Grande, | | | 2019 | Visit | | MD [address] | | | | | | [place] | | | | | | [address] | | | | | | | [...]
--- OUTSIDE RECORDS SUMMARY | ~2019-04-18 | XMS | Encounter Summary ---
Demographics + + + | Address | [address] | | | [place] [address] | + + + | Home Phone | | + + + | Preferred Language | Unknown | + + + | Marital Status | Single | + + + | Sikh Affiliation | Unknown | + + + | Race | Unknown | + + + | Ethnic Group | Unknown | + + + Author + + + | Author | [facility] | | | and [place] | + + + | Organization | [facility] | [...] | | | | | [place] [address] | | + + + + + | Robson Min | ECON | Unknown | | + + + + + | Isabella Whitehead | ECON | Unknown | | + + + + + Care Team Providers + +------+ + | Care Coastal Tug Mate Name | Role | Phone | + [...] Results, Imaging | | 2018 | | [facility] | [address] | | | | | CLINIC [address] | [place] | | | | | DR KACI [place], | [address] | | | | | [place] [address] | | | | | | [phone] | | | +--------+ + + + [...] [place] | | | | | | [address] | | | | | | | | +--------+---------+ + + + | 07/26/ | Office | Pulmonology | Navdeep Grande, | | | 2020 | Visit | | [address] | | | | | | [place] | | | | | | [address] | | | | | | | | +--------+---------+ + + + documented as of this encounter Visit Diagnoses Not on filedocumented in this encounter"
--- OUTSIDE RECORDS SUMMARY | ~2019-04-18 | XMS | Encounter Summary ---
Demographics + + + | Address | [address] | | | [place] [address] | + + + | Home Phone [...] | | | | | [place] [address] | | + + + + + | Robson Min | ECON | Unknown | | + + + + + | Isabella Whitehead | ECON | Unknown | | + + + + + Care Team Providers + +------+ + | Care Skoog Machine Operator Name | Role | Phone [...] + + | 10/02/ | Telephone | [facility] | Cecilio Amato MD | Results (gastric | | 2013 | | GASTROENTEROLOGY | [address] | emptying study) | | | | [address] [facility] | [place], [place] | | | | | [address] | [address] | | | | | [address] | [phone] | | | | | [phone] | | | +--------+ + + + [...] [place] | | | | | | [address] | | | | | | | | +--------+---------+ + + + | 07/26/ | Office | Pulmonology | Navdeep Grande, | | | 2019 | Visit | | [address] | | | | | | [place] | | | | | | [phone] | | | | | | | | +--------+---------+ + + + documented as of this encounter Visit Diagnoses Not on filedocumented in this encounter"
--- OUTSIDE RECORDS SUMMARY | ~2019-04-18 | XMS | Encounter Summary ---
Demographics + + + | Address | [address] | | | [place] [address] | + + + | Home Phone [...] + + + | Author | [facility] | | | and [place] | + + + | Organization | [facility] | | [...] | | | | | [place] [address] | | + + + + + | Robson Min | ECON | Unknown | | + + + + + | Isabella Whitehead | ECON | Unknown | | + + + + + Care Team Providers + +------+ + | Care Pick Up Name | Role | Phone | + [...] Zhou PEARSON | | | | | [phone] | [place] [address] | | +--------+ + + + + [...] [place] | | | | | | [address] | | | | | | | | +--------+---------+ + + + | 07/26/ | Office | Pulmonology | Navdeep [place], | | | 2019 | Visit | | [address] | | | | | | [place] | | | | | | [address] | | | | | | | [...]
--- OUTSIDE RECORDS SUMMARY | ~2019-04-18 | XMS | Encounter Summary ---
Demographics + + + | Address | [address] | | | [place] [address] | + + + | Home Phone [...] | | | | | [place] [address] | | + + + + + | Robson Min | ECON | Unknown | | + + + + + | Isabella Whitehead | ECON | Unknown | | + + + + + Care Team Providers + +------+ + | Care Cone Marker Name | Role | Phone | [...] + + | 06/05/ | Telephone | [facility] [place] | Navdeep [place], | Results | | 2015 | | PULMONARY [address] | MD [address] | | | | | [place], | [place] | | | | | [place] [address] | [id number] | | | | | [phone] | | | +--------+ + + + [...] [place] | | | | | | [address] | | | | | | | | +--------+---------+ + + + | 07/26/ | Office | Pulmonology | Navdeep Grande, | | | 2019 | Visit | | [address] | | | | | | [place] | | | | | | [address] | | | | | | | [...]
--- OUTSIDE RECORDS SUMMARY | ~2019-04-18 | XMS | Encounter Summary ---
Demographics + + + | Address | [address] | | | [place] [address] | + + + | Home Phone [...] | | | | | [place] [address] | | + + + + + | Robson Min | ECON | Unknown | | + + + + + | Isabella Whitehead | ECON | Unknown | | + + + + + Care Team Providers + +------+ + | Care Oil Well Cable Tool Driller Name | Role | Phone | + +------+ + | Bart Ba DO | PCP | | + +------+ + Encounter Details +--------+ + + + + | Date | Type | Department | Care Team | Description | +--------+ + + + + | 06/05/ | Orders Only | [facility] [place] | Yanna Bond | Alveolar | | 2015 | | PULMONARY [address] | [place]ba | hypoventilation; | | | | [place], | | Hypoxemia | | | | [place] [address] | | | | | | [phone] | | | +--------+ + + + [...] [place] | | | | | | [address] | | | | | | | | +--------+---------+ + + + | 07/26/ | Office | Pulmonology | Navdeep Grande, | | | 2019 | Visit | | [address] | | | | | | [place] | | | | | | [address] | | | | | | | | +--------+---------+ + + + documented as of this encounter Visit Diagnoses + + | Diagnosis | + + | Alveolar hypoventilation Other dyspnea and respiratory abnormality | + + | Hypoxemia | + + documented in this encounter"
--- OUTSIDE RECORDS SUMMARY | ~2019-04-18 | XMS | Encounter Summary ---
Demographics + + + | Address | [address] | | | [place] [address] | + + + | Home Phone [...] | | | | | [place] [address] | | + + + + + | Robson Min | ECON | Unknown | | + + + + + | Isabella Whitehead | ECON | Unknown | | + + + + + Care Team Providers + +------+ + | Care Admin Assistant Name | Role | Phone | [...] | | | Pulmonology | obstructive | [address] | [address] | | | | | pulmonary | [address] | [place], | | | | | disease, | [place] | [place] [address] | | | | | unspecified | [address] | Phone: | | | | | ([facility]) | [place] | [phone] | | | | | Procedures | [address] | Fax: | | | | | F/U | Phone: | [phone] | | | | | | [phone] | | | | | | | Fax: | | | | | | | [phone] | | +--------+--------+ + + + + [...] | (Primary Dx); | | | | [place], | [place], [place] | Alveolar | | | | [place] [address] | [phone] | hypoventilation; | | | | [phone] | | Tobacco use disorder | +--------+---------+ [...] find a support program: Free national quitline: 014-JITU-OZX (272-712-3930). [facility] quit-smoking programs. [place] [employer]: (369.450.5382). [place] (528-870-9574). Support at home is important too. Nonsmokers can offer praise and encouragement. If the smo ker in your life finds it hard to quit, encourage them to keep trying! Lmam-irf-mpaovqe medicines Nicotine replacement therapymay make quittingeasier. Certain [...] Air booklet from the National Cancer Institutehttp://smokefree.gov/si richar/default/files/pdf/abauvlgz-lec-iiz-accessible.pdf 9362-0554 [employer]. [address] [place] [address], [place] [address]. All righ ts reserved. This information is [...] Date Wrist pain Diabetes mellitus, type 2 ([facility]) Vitamin D deficiency Hypercholesterolemia Hypothyroidism Panic anxiety syndrome IBS (irritable bowel syndrome) Restless leg syndrome Urinary hesitancy Lumbago Nocturia Pyoderma gangreosum-LE Bipolar 1 disorder ([facility]) Hypertension Lymphedema Nausea and vomiting Reflux esophagitis GI bleeding Empyema lung ([facility]) 2005 right Knee pain [...] mouth 4 times daily., Disp: , Rfl: ifwlpyybrn-ximkpdt-ezqywstw (BUTALBITAL COMPOUND/ASA) per tablet, One tablet by [...] [place] | | | | | | [address] | | | | | | | | +--------+---------+ + + + | 07/26/ | Office | Pulmonology | Navdeep [place], | | | 2019 | Visit | | [address] | | | | | | [place] | | | | | | [address] | | | | | | | [...]
--- OUTSIDE RECORDS SUMMARY | ~2019-04-18 | XMS | Encounter Summary ---
Demographics + + + | Address | [address] | | | [place] [address] | + + + | Home Phone [...] + + + | Author | [facility] | + + + | Organization | [facility] | + + + | Address | Unknown | + + + | Phone | Unavailable | + + + Support + + + + + | Name | Relationship | Address | Phone | + + + + + | Scot Johnson | ECON | [address] | | | | | [place] [address] | | + + + + + Care Team Providers + +------+ + | Care Artificial Snow Making Machine Operator Name | Role | Phone [...] of | Santana Faith, | [address] | | | Required | | other [...] | | , [address] | [place] [address] | [place], [place] | | | | | [place] | Phone: | [address] | | | | | OFFICE/OUTPT | [phone] | Phone: | | | | | | Fax: | [phone] | | | | | VISIT,EST,LE | [phone] | Fax: | | | | | VL III 1 | | [phone] | | | | | consult, 3 [...] | 2007 | Visit | Medical at [facility] | MD [address] | Pyoderma, | | | | Floor [address] | [place], [place] | Unspecified | | | | Ave Mailcode: [facility] | [address] | | | | | [facility] | [phone] | | | | | and Healing, | | | | | | Building | | | | | | Floor [place], [place] | | | | | | [address] | | | | | | [phone] | | | +--------+---------+ + + + [...] documented in this encounter Progress Notes Zayda Odraz - 02/28/2008 10:18 PM CHINOI personally interviewed and examined the patient and discussed the plan with the patient. I have reviewed and edited the resident note to re flect my findings and assessment and agree with the documentation. Zayda Ordaz M.D. Civil Rights Representative of Dermatology. Sandy Durbin, Azucena - 008 [...] Jacobson MD Resident PGY-2, Department of Dermatology [facility] [place] documented in this encoun ter Plan of [...] Lab) | | | | | | [facility] | | | | | | [address] | | | | [address] | | | | | | [place], [place] | | | | | | [address]Gngwafd: Test | | | | | | performed at [facility] | | | | | | [facility] | | | | | | Laboratory. | | | | + + + + + + + + | Specimen | + + | Leg - Left | + + + + + + + | Performing | Address | City/State/Zipcode | Phone Number | | Organization | | | | + + + + + | [facility] | [address] | [place] [address] | | | LAB-MICRO | | | | + + + + + documented in this encounter Visit Diagnoses + + | Diagnosis | + + | Ulcer - Primary Chronic ulcer of unspecified site | + + | Pyoderma, unspecified | + + documented in this encounter"
--- OUTSIDE RECORDS SUMMARY | ~2019-04-18 | XMS | Encounter Summary ---
Demographics + + + | Address | [address] | | | [place] [address] | + + + | Home Phone [...] + + + | Author | [facility] | | | and [place] | + + + | Organization | [facility] | | | and [...] | | | | | [place] [address] | | + + + + + | oRbson Min | ECON | Unknown | | + + + + + | Isabella Whitehead | ECON | Unknown | | + + + + + Care Team Providers + +------+ + | Care Insurance Claims Supervisor Name | Role | Phone | [...] [address] | | | | | [place], | [place], [place] | | | | | [place] [address] | [address] | | | | | [phone] | | | +--------+ + + + [...] MICHEL[place] | | | | | | [address] | | | | | | | | +--------+---------+ + + + | 07/26/ | Office | Pulmonology | Navdeep Grande, | | | 2019 | Visit | | [address] | | | | | | [place] | | | | | | [address] | | | | | | | | +--------+---------+ + + + documented as of this encounter Visit Diagnoses Not on filedocumented in this encounter"
--- OUTSIDE RECORDS SUMMARY | ~2019-04-18 | XMS | Encounter Summary ---
Demographics + + + | Address | [address] | | | [place] [address] | + + + | Home Phone [...] | | | | | [place] [address] | | + + + + + | Robson Min | ECON | Unknown | | + + + + + | Isabella Whitehead | ECON | Unknown | | + + + + + Care Team Providers + +------+ + | Care Motion And Time Study Teacher Name | Role | Phone | [...] | | | Pulmonology | obstructive | [address] | [address] | | | | | pulmonary | [address] | [place], | | | | | disease, | [place], | [place] [address] | | | | | unspecified | [place] | Phone: | | | | | ([facility]) | [address] | [phone] | | | | | Obstructive | Phone: | Fax: | | | | | sleep apnea | [phone] | [phone] | | | | | (adult) | Fax: | | | | | | (pediatric) | [phone] | | | | | | Procedures [...] + + | 01/25/ | [facility] [place] | [place], | COPD, moderate (HCC) | | 2019 | Visit | PULMONARY [address] | [address] | (Primary Dx); | | | | [place], | [place], [place] | Tobacco use | | | | [place] [address] | [address] | disorder; Alveolar | | | | [phone] | | hypoventilation; | | | | [...] Wash your hands often. Use alcohol-based hand aircraft sheet metal mechanic when you don t have access to soap and water. Don t touch your eyes, nose, and mouth. This may help you keep germs out of your body. Try to avoid people with respiratory infections. You may want to stay out of crowds [facility] ng flu season (winter). Ask your [...] and open the door. Date Last Reviewed: 03/19/201619996159-2985 [employer]. [address] [place] [address], [place] [address]. All righ ts reserved. This information is [...] Angina pectoris (HCC) Arrhythmia Bipolar 1 disorder ([facility]) CHRONIC TENSION HEADACHE Classical migraine without mention of intractable migraine Diabetes mellitus, type 2 ([facility]) Empyema lung ([facility]) 2005 right GI bleeding Hypercholesterolemia Hypertension Hypothyroidism IBS (irritable bowel syndrome) Knee pain Lymphedema Myocardial infarction ([facility]) Nausea and vomiting Nocturia Obesity Panic anxiety syndrome Pneumonia Pyoderma gangreosum-LE RA (rheumatoid arthritis) ([facility]) Followed by Dr. Becerra Rheumologist in [place] Reflux esophagitis Restless leg syndrome Urinary [...] Sensor (FREESTYLE HUAN 14 DAY SENSOR) [facility], , Disp: , Rfl: DOK 100 MG capsule, Take 100 mg by mouth 2 times daily., Disp: , Rfl: ergocalciferol (VITAMIN D-2) 50,000 units capsule, Take 50,000 Units by mouth Once a w [place]., Disp: , Rfl: fluticasone-salmeterol (ADVAIR HFA) 115-21 [...] daily., Disp: , Rfl: Respiratory Therapy Supplies [facility], Portable oxygen concentrator to provide O2 at [...] QUADR W/PRES (PED/ADOL/ADULT) MULTIDOSE 01/27/2017, 02/10/2018 INFLUENZA, S0L7-26, UNSPECIFIED 03/09/2009 INFLUENZA, UNSPECIFIED FORMULATION 04/27/2000, 02/04/2011, [...] [place] | | | | | | [id number] | | | | | | | | +--------+---------+ + + + | 07/26/ | Office | Pulmonology | Navdeep [place], | | | 2020 | Visit | | [address] | | | | | | [place] | | | | | | [address] | | | | | | | [...]
--- OUTSIDE RECORDS SUMMARY | ~2019-04-18 | XMS | Encounter Summary ---
Demographics + + + | Address | [address] | | | [place] [address] | + + + | Home Phone [...] | | | | | [place] [address] | | + + + + + | Robson Min | ECON | Unknown | | + + + + + | Isabella Whitehead | ECON | Unknown | | + + + + + Care Team Providers + +------+ + | Care Tin Dipper Name | Role | Phone | [...] Results, Imaging | | 2018 | | [facility] | [address] | | | | | CLINIC [address] | [place] | | | | | DR KAC[address] [place], | [address] | | | | | [place] [address] | | | | | | [phone] | | | +--------+ + + + [...] [place] | | | | | | [address] | | | | | | | | +--------+---------+ + + + | 07/26/ | Office | Pulmonology | Navdeep [place], | | | 2020 | Visit | | [address] | | | | | | [place] | | | | | | [address] | | | | | | | | +--------+---------+ + + + documented as of this encounter Visit Diagnoses Not on filedocumented in this encounter"
--- OUTSIDE RECORDS SUMMARY | ~2019-04-18 | XMS | Encounter Summary ---
Demographics + + + | Address | [address] | | | [place] [address] | + + + | Home Phone [...] | | | | | [place] [address] | | + + + + + | Robson Min | ECON | Unknown | | + + + + + | Isabella Whitehead | ECON | Unknown | | + + + + + Care Team Providers + +------+ + | Care Invoice Coder Name | Role | Phone | + [...] | | | | | | | [address] | | | | | | | Phone: | | | | | | | [phone] | | | | | | | Fax: | | | | | | | [phone] | | +--------+--------+ + + + + [...] | | Required | | Disorientati | [address] | [address] | | | | | on, | [address] | [address] [place] | | | | | unspecified | [place] | [place] | | | | | Procedures | [address] | [address] Phone: | | | | | Specialty | [place] | [phone] | | | | | Services | [address] | Fax: | | | | | Required | Phone: | [phone] | | | | | | [phone] | | | | | | | Fax: | | | | | | | [phone] | | +--------+ + + + + [...] without coma, | | | | [place] [address] | | without long-term | | | | [phone] | | current use of | | [...] be different from the original. Patient Instructions [facility] Dr. Jimbo Samayoa, Neurologist [...] le, and scrabble, other puzzle games like Royal Madinau, Mahjong. Play computer/mobile applications such as [employer] and [employer] GAMES Avoid sleep deprivation, alcohol, stimulants, or any type of head trauma Any Questions please call MARTHA Matthew or Dr. Samayoa at [facility] Altered Level of Consciousness [...] return New symptoms appear Date Last Reviewed: 12/09/201419993829-2451 [employer]. [address] [place] [address], [place] [address]. All righ ts reserved. This information is [...] joint. Hot and cold packs may help. Pjgq-rhc-thkfuzu and prescription medicines can be ve ry helpful for arthritis. Talk with your healthcare provider about the best treatments for y our condition. Date Last Reviewed: 08/17/201619993785-9312 [employer]. [address] [place] [address], [place] [address]. All righ ts reserved. This information is [...] you take. This includes prescription an d zsik-dil-rzxowsu medicines, vitamins, and herbs. Ask if any of the medicines may be causin g your problems. Don't make any changes to prescription medicines without talking to your [facility] provider first. You may be prescribed medicines [...] speaking, walking, or seeing Date Last Reviewed: 06/17/201719995190-[address] [employer] [place], [place] [address]. All [facility] ts reserved. This information is not intended [...] massage, and other methods. Date Last Reviewed: 04/19/201719991469-[address] [employer] [place] [address], [place] [address]. All [facility] ts reserved. This information is not [...] acupuncture, massage, and others. Date Last Reviewed: 03/19/201719992242-9078 [employer]. [address] [place] [address]. All righ ts reserved. This information is [...] [place] | | | | | | [address] | | | | | | | | +--------+---------+ + + + | 07/26/ | Office | Pulmonology | Navdeep Grande, | | | 2019 | Visit | | [address] | | | | | | [place] | | | | | | [id number] | | | | | | | [...]
--- OUTSIDE RECORDS SUMMARY | ~2019-04-18 | XMS | Encounter Summary ---
Demographics + + + | Address | [address] | | | [place] [address] | + + + | Home Phone [...] + + + | Author | [facility] | | | and [place] | + + + | Organization | [facility] | | | [...] | | | | | [place] [address] | | + + + + + | Robson Min | ECON | Unknown | | + + + + + | Isabella Whitehead | ECON | Unknown | | + + + + + Care Team Providers + +------+ + | Care Detective Captain Name | Role | Phone | + [...] | | apnea, | [address] | [place] | | | | | unspecified | [address] | [place], | | | | | type | [place], | [place] [address] | | | | | Alveolar | [place] [address] | Phone: | | | | | hypoventilat | Phone: | [phone] | | | | | ion | [phone] | Fax: | | | | | Procedures | Fax: | [phone] | | | | | [place] POLYSOM | [phone] | | | | | | 6/>YRS [...] + + | 11/16/ | Telephone | [facility] | Navdeep [place], | Results (nocturnal | | 2018 | | PULMONARY [address] | MD [address] | oximetry) | | | | [place], | [place] | | | | | [place] [address] | [address] | | | | | [phone] | | | +--------+ + + + [...] [place] | | | | | | [id number] | | | | | | | | +--------+---------+ + + + | 07/26/ | Office | Pulmonology | Navdeep Grande, | | | 2020 | Visit | | MD [address] | | | | | | [place] | | | | | | [address] | | | | | | | | +--------+---------+ + + + + + +--------+ + + | Name | Type | Priori | Associated Diagnoses | Order Schedule | | | | ty | | | + + +--------+ + + | * [facility] - | Outpatient | [...]
--- OUTSIDE RECORDS SUMMARY | ~2019-04-18 | XMS | Encounter Summary ---
Demographics + + + | Address | [address] | | | [place] [address] | + + + | Home Phone [...] | | | | | [place] [address] | | + + + + + | Robson Min | ECON | Unknown | | + + + + + | Isabella Whitehead | ECON | Unknown | | + + + + + Care Team Providers + +------+ + | Care Cherry Picker Operator Name | Role | Phone | [...] | | | Pulmonology | (chronic | [address] | [address] | | | | | obstructive | [address] | [place] | | | | | pulmonary | [place] | [place] [address] | | | | | disease) | [address] | Phone: | | | | | ([facility]) | [place] | [phone] | | | | | Procedures | [address] | Fax: | | | | | [address] | Phone: | [phone] | | | | | [address] [place] | [phone] | | | | | | 11/19/17 | Fax: | | | | | | | [phone] | | +--------+--------+ + + + + Encounter Details +--------+---------+ + + + | Date | Type | Department | Care Team | Description | +--------+---------+ + + + | 12/10/ | Office | [facility] [place] | Navdeep [place], | Alveolar | | 2018 | Visit | PULMONARY [address] | MD [address] | hypoventilation | | | | [place], | [place], [place] | (Primary Dx); COPD, | | | | [place] [address] | [address] | mild (HCC); | | | | [phone] | | Hypoxemia; JESUSITA and | | [...] need to be calibrated. Someone from your [facility] team will adjust the settings. That person [...] irritation from your mask Date Last Reviewed: 05/20/201619998923-7148 [employer]. [address] [place] [address]. All righ ts reserved. This information is [...] of intractable migraine Diabetes mellitus, type 2 ([facility]) Empyema lung ([facility]) 2005 right GI bleeding Hypercholesterolemia Hypertension [...] 50,000 Units by mouth Once a w [place]., Disp: , Rfl: fluticasone-salmeterol (ADVAIR DISKUS) 250-50 [...] [place] | | | | | | [address] | | | | | | | | +--------+---------+ + + + | 07/26/ | Office | Pulmonology | Navdeep Grande, | | | 2019 | Visit | | [address] | | | | | | [place] | | | | | | [address] | | | | | | | [...]
--- OUTSIDE RECORDS SUMMARY | ~2019-04-18 | XMS | Encounter Summary ---
Demographics + + + | Address | [address] | | | [place] [address] | + + + | Home Phone [...] Author | [facility] | + + + | Organization | [facility] | + + + | Address | Unknown | + + + | Phone | Unavailable | + + + Support + + + + + | Name | Relationship | Address | Phone | + + + + + | Scot Johnson | ECON | [address] | | | | | [place] [address] | | + + + + + Care Team Providers + +------+ + | Care Pick Up Attendant Name | Role | Phone | [...] | | | | | Cath[place], | | | | | | [place] [address] | | | +--------+ + + + [...] | | Patient: CARLINE MIN Med Rec: [id number] Sex F Bdate: 1970 | | Date/Time Data | | Entered Into [facility] | | Anesth PostOp | | Surgery Date [id number] 10/28/05 11:05 | | Anesthesiologist BHAVANA QUIÑONES 10/28/05 11:05 | | Resident Anesthesiolog CARRIE GONZALES 10/28/05 11:05 | | | + + documented in this encounter Visit Diagnoses Not on filedocumented in this encounter"
--- OUTSIDE RECORDS SUMMARY | ~2019-04-18 | XMS | Encounter Summary ---
Demographics + + + | Address | [address] | | | [place] [address] | + + + | Home Phone [...] | | | | | [place] [address] | | + + + + + Care Team Providers + +------+ + | Care Dental Instructor Name | Role | Phone | + +------+ + PCP | Unavailable | + +------+ + Encounter Details +--------+ + + + + | Date | Type | Department | Care Team | Description | +--------+ + + + + | 12/03/ | Results | | Other, Faculty | | | 2002 | Only | | [phone] | | +--------+ + + + + [...] OF | [address] | [place] [address] | | | PATHOLOGY | [address] | | | + + + + + | [facility] | [address] | [place] [address] | | | PATHOLOGY | [address] | | | + + + + + documented in this encounter Visit Diagnoses Not on filedocumented in this encounter"
--- OUTSIDE RECORDS SUMMARY | ~2019-04-18 | XMS | Encounter Summary ---
Demographics + + + | Address | [address] | | | [place] [address] | + + + | Home Phone [...] | | | | | [place] [address] | | + + + + + | Robson Min | ECON | Unknown | | + + + + + | Isabella Whitehead | ECON | Unknown | | + + + + + Care Team Providers + +------+ + | Care Business Operations Director Name | Role | Phone | [...] Barba | hypoventilation; | | | | [place], | | Hypoxemia | | | | [place] [address] | | | | | | [phone] | | | +--------+ + + + [...] MICHELLE | | | | | | [address] | | | | | | | | +--------+---------+ + + + | 07/26/ | Office | Pulmonology | Navdeep Grande, | | | 2019 | Visit | | [address] | | | | | | [place] | | | | | | [address] | | | | | | | | +--------+---------+ + + + documented as of this encounter Visit Diagnoses + + | Diagnosis | + + | Alveolar hypoventilation Other dyspnea and respiratory abnormality | + + | Hypoxemia | + + documented in this encounter"
--- OUTSIDE RECORDS SUMMARY | ~2019-04-18 | XMS | Clinical Summary ---
Demographics + + + | Address | [address] | | | [place] [address] | + + + | Home Phone [...] | | | | | [place] [address] | | + + + + + Care Team Providers + +------+ + | Care Acute Care Surgeon Name | Role | Phone | + +------+ + | Bart Ba DO | PCP | | + +------+ + Source Comments HAYLEY is fully live on both [facility] Ambulatory and [facility] InPatient.[facility] Allergies + + + + + + [...]
--- OUTSIDE RECORDS SUMMARY | ~2019-04-18 | XMS | Encounter Summary ---
Demographics + + + | Address | [address] | | | [place] [address] | + + + | Home Phone [...] | | | | | [place] [address] | | + + + + + | Robson Min | ECON | Unknown | | + + + + + | Isabella Whitehead | ECON | Unknown | | + + + + + Care Team Providers + +------+ + | Care Coffee Bar Attendant Name | Role | Phone | + +------+ + | Ora Slater | PCP | | + +------+ + Encounter Details +--------+ + + + + | Date | Type | Department | Care Team | Description | +--------+ + + + + | 09/22/ | Hospital | [facility] | Navdeep Grande, | COPD, mild (HCC) | | 2019 | Encounter | MED CTR PULMONARY | MD [address] | | | | | FUNCTION [address] | [place], [place] | | | | | [place], | [address] | | | | | [place] [address] | | | | | | [phone] | Neno Walker | | | | | | MD Srinivas [address] | | | | | | [address] [place] | | | | | | [place] [address] | | | | | | [phone] | | | | | | | [...] | CRISTAL DE LA CRUZ | Inject 20 Units [...] [place]HELLE | | | | | | [address] | | | | | | | | +--------+---------+ + + + | 07/26/ | Office | Pulmonology | Navdeep Grande, | | | 2019 | Visit | | MD Cely GORE | | | | | | [place] | | | | | | [address] | | | | | | | [...] Grande MD 09/22/2018 | | | 14:54[facility] | | |physiology. Lung volume testing is [...] Grande MD 09/22/2018 14:54 | | |[facility] | | + + + documented in this encounter Visit Diagnoses + + | Diagnosis | + + | COPD, mild (HCC) Chronic airway obstruction, not elsewhere classified | + + documented in this encounter"
--- OUTSIDE RECORDS SUMMARY | ~2019-04-18 | XMS | Encounter Summary ---
Demographics + + + | Address | [address] | | | [place] [address] | + + + | Home Phone [...] | | | | | [place] [address] | | + + + + + Care Team Providers + +------+ + | Care Poultryman Name | Role | Phone | + +------+ + PCP | Unavailable | + +------+ + Encounter Details +--------+ + + + + | Date | Type | Department | Care Team | Description | +--------+ + + + + | 10/30/ | Respiratory | | Other, Faculty | | | 2006 | Therapy | | [phone] | | +--------+ + + + + [...] [facility] | [address] | [place], [place] | | | DIAGNOSTICS - | [address] | [address] | | | PULMONARY FUNCTION | | | | + + + + + documented in this encounter Visit Diagnoses Not on filedocumented in this encounter"
--- OUTSIDE RECORDS SUMMARY | ~2019-04-18 | XMS | Encounter Summary ---
Demographics + + + | Address | [address] | | | [place] [address] | + + + | Home Phone [...] | | | | | [place] [address] | | + + + + + Care Team Providers + +------+ + | Care Seismic Plotter Name | Role | Phone | + [...] | | | | | [place], | | | | | | [place] [address] | | | | | | [phone] | | | | | | | [...] | + + + + + | [facility] | [facility] [address] | [place] [address] | | | PATHOLOGY | [address] | | | + + + + + | [facility] DEPARTMENT OF | [facility] [address] | [place] [address] | | | PATHOLOGY | [address] [...] | 8.9 | 8.5 - 10.5 | [facility] | | | PLASMA | | [...] | + + + + + | [facility] DEPARTMENT OF | [address] | [place] [address] | | | PATHOLOGY | [address] | | | + + + + + | [facility] DEPARTMENT OF | [address] | [place] [address] | | | PATHOLOGY | [address] | | | + + + + + documented in this encounter Visit Diagnoses Not on filedocumented in this encounter"
--- OUTSIDE RECORDS SUMMARY | ~2019-04-18 | XMS | Encounter Summary ---
Demographics + + + | Address | [address] | | | [place] [address] | + + + | Home Phone | | + + + | Preferred Language | Unknown | + + + | Marital Status | Single | + + + | Hoahaoism Affiliation | Unknown | + + + | Race | Unknown | + + + | Ethnic Group | Unknown | + + + Author + + + | Author | [facility] | | | and [place] | + + + | Organization | [facility] | | [...] | | | | | [place] [address] | | + + + + + | Robson Min | ECON | Unknown | | + + + + + | Isabella Whitehead | ECON | Unknown | | + + + + + Care Team Providers + +------+ + | Care Theatrical Rigger Name | Role | Phone | + [...] [address] | | | | | [place], | [place] | | | | | [place] [address] | [address] | | | | | [phone] | | | +--------+ + + + [...] MICHELLE | | | | | | [address] | | | | | | | | +--------+---------+ + + + | 07/26/ | Office | Pulmonology | Navdeep Grande, | | | 2019 | Visit | | MD Cely GORE | | | | | | [place] | | | | | | [address] | | | | | | | | +--------+---------+ + + + documented as of this encounter Visit Diagnoses Not on filedocumented in this encounter"
--- OUTSIDE RECORDS SUMMARY | ~2019-04-18 | XMS | Encounter Summary ---
Demographics + + + | Address | [address] | | | [place] [address] | + + + | Home Phone [...] | | | | | [place] [address] | | + + + + + Care Team Providers + +------+ + | Care Plush Cutter Name | Role | Phone | + +------+ + PCP | Unavailable | + +------+ + Encounter Details +--------+ + + + + | Date | Type | Department | Care Team | Description | +--------+ + + + + | 10/22/ | Respiratory | | Other, Faculty | | | 2006 | Therapy | | [phone] | | +--------+ + + + + [...] | | | | | Y | STONE PRODUCT FABRICATOR | | | | + + + [...] [facility] | [address] | [place], [place] | | | DIAGNOSTICS - | [address] | [address] | | | PULMONARY FUNCTION | | | | + + + + + documented in this encounter Visit Diagnoses Not on filedocumented in this encounter"
--- OUTSIDE RECORDS SUMMARY | ~2019-04-18 | XMS | Encounter Summary ---
Demographics + + + | Address | [address] | | | [place] [address] | + + + | Home Phone [...] | | | | | [place] [address] | | + + + + + | Robson Min | ECON | Unknown | | + + + + + | Isabella Whitehead | ECON | Unknown | | + + + + + Care Team Providers + +------+ + | Care Peoplesoft Business Analyst Name | Role | Phone | [...] Zhou PEARSON | | | | | [phone] | [place] [address] | | +--------+ + + + + [...] [place]HELLE | | | | | | [address] | | | | | | | | +--------+---------+ + + + | 07/26/ | Office | Pulmonology | Navdeep Grande, | | | 2019 | Visit | | [address] | | | | | | [place] | | | | | | [address] | | | | | | | [...]
--- OUTSIDE RECORDS SUMMARY | ~2019-04-18 | XMS | Encounter Summary ---
Demographics + + + | Address | [address] | | | [place] [address] | + + + | Home Phone | | + + + | Preferred Language | Unknown | + + + | Marital Status | Single | + + + | Shinto Affiliation | CHR | + + + | Race | White | + + + | Ethnic Group | Not or | + + + Author + + + | Author | [facility] | + + + | Organization | [facility] | + + + | Address | Unknown | + + + | Phone | Unavailable | + + + Support + + + + + | Name | Relationship | Address | Phone | + + + + + | Scot Johnson | ECON | [address] | | | | | [place] [address] | | + + + + + Care Team Providers + +------+ + | Care Hide Dropper Name | Role | Phone | + [...] as of this encounter Progress Notes Interface, Metrology Engineer In - 05/02/2006 2:20 PM [facility] DATE: 11/12/97 RHEUMATOLOGY CLINIC CHIEF COMPLAINT: [...] the family. SOCIAL HISTORY: She lives in [place], [place] with her son and boyfriend. She [...] checked monthly and faxed to Dr. Anup Dawosn, Rheumatology Fellow. Her primary care physician may also be interested in getting a chest x-ray on the remote chance that she develops a pneumonitis and comparison films are needed. We also wrote a prescription for Oscal b.i.d. secondary to her Prednisone. She should continue her Sulindac and Prednisone for the moment. The shelter goal will be to wean the Prednisone [...] M.D. Resident, Internal Medicine Deyvi Lainez M.D. Liquor Clerk, Rheumatology ES:aster documented in this encounter Plan of Treatment Not on filedocumented as of this encounter Visit Diagnoses Not on filedocumented in this encounter
--- OUTSIDE RECORDS SUMMARY | ~2019-04-18 | XMS | Encounter Summary ---
Demographics + + + | Address | [address] | | | [place] [address] | + + + | Home Phone [...] | | | | | [place] [address] | | + + + + + Care Team Providers + +------+ + | Care Van Loader Name | Role | Phone | [...] | | | | | VIEW | VILOET CuevasEXAM: AP | | | | | [...]
--- OUTSIDE RECORDS SUMMARY | ~2019-04-18 | XMS | Encounter Summary ---
Demographics + + + | Address | [address] | | | [place] [address] | + + + | Home Phone [...] | | | | | [place] [address] | | + + + + + | Robson Min | ECON | Unknown | | + + + + + | Isabella Whitehead | ECON | Unknown | | + + + + + Care Team Providers + +------+ + | Care Folder Hand Name | Role | Phone | [...] Medicine | Nocturnal | Neno Thong | [place] [address] | | | Required | | hypoxia | MD Srin[address] | [address] | | | | | Chronic | [place] | [place], | | | | | obstructive | [facility] | [place] [address] | | | | | pulmonary | [place], [place] | Phone: | | | | | disease, | [address] | [phone] | | | | | unspecified | Phone: | Fax: | | | | | COPD type | [phone] | [phone] | | | | | (HCC) | Fax: | | | | | | Procedures | [phone] | | | | | | [place] POLYSOM | | | | | | [...] + + | 10/12/ | Office | [facility] | Neno Walker | Nocturnal hypoxia | | 2019 | Visit | SLEEP DISORDER [address] | MD Srinivas [address] [place] | (Primary Dx); | | | | [address] [place] | [address] [place] | Chronic obstructive | | | | [place] [address] | [place] [address] | pulmonary disease, | | | | [phone] | [phone] | unspecified COPD | | | | [...] PDTThis patient was felt to have severe political analyst sandy obstructive pulmonary disease comes in for [...] breaths does not meet criteria for an jail keeper ea or hypopnea. Sleep Architecture: Lights out [...] obstructive apneas, 0 mixed apneas, 0 central jail keeper eas, 22 hypopneas, and 12 Respiratory Effort [...] signed by: Navdeep Grande MD 09/22/2018 14:[address] [facility] BP 110/80 | Pulse 95 | Resp [...] [place] | | | | | | [id number] | | | | | | | | +--------+---------+ + + + + + +--------+ + + | Name | Type | Priori | Associated Diagnoses | Order Schedule | | | | ty | | | + + +--------+ + + | * [facility] - | Outpatient | [...]
--- OUTSIDE RECORDS SUMMARY | ~2019-04-18 | XMS | Encounter Summary ---
Demographics + + + | Address | [address] | | | [place] [address] | + + + | Home Phone [...] | | | | | [place] [address] | | + + + + + Care Team Providers + +------+ + | Care Electronic Security Technician Name | Role | Phone | + +------+ + PCP | Unavailable | + +------+ + Encounter Details +--------+ + + + + | Date | Type | Department | Care Team | Description | +--------+ + + + + | 10/24/ | Respiratory | | Other, Faculty | | | 2006 | Therapy | | [phone] | | +--------+ + + + + [...] | | | | | Y | BILL HIKER | | | | + + + [...] [facility] | [address] | [place], [place] | | | DIAGNOSTICS - | [address] | [address] | | | PULMONARY FUNCTION | | | | + + + + + documented in this encounter Visit Diagnoses Not on filedocumented in this encounter"
--- OUTSIDE RECORDS SUMMARY | ~2019-04-18 | XMS | Encounter Summary ---
Demographics + + + | Address | [address] | | | [place] [address] | + + + | Home Phone [...] | | | | | [place] [address] | | + + + + + | Robson Min | ECON | Unknown | | + + + + + | Isabella Whitehead | ECON | Unknown | | + + + + + Care Team Providers + +------+ + | Care Consulting Application Engineer Name | Role | Phone | [...] [address] | | | | | [place], | [place], [place] | | | | | [place] [address] | [address] | | | | | [phone] | | | +--------+ + + + [...] MICHELLE | | | | | | [address] | | | | | | | | +--------+---------+ + + + | 07/26/ | Office | Pulmonology | Navdeep Grande, | | | 2019 | Visit | | MD Cely GROE | | | | | | [place] | | | | | | [address] | | | | | | | | +--------+---------+ + + + documented as of this encounter Visit Diagnoses Not on filedocumented in this encounter"
--- OUTSIDE RECORDS SUMMARY | ~2019-04-18 | XMS | Encounter Summary ---
Demographics + + + | Address | [address] | | | [place] [address] | + + + | Home Phone [...] | | | | | [place] [address] | | + + + + + | Robson Min | ECON | Unknown | | + + + + + | Isabella Whitehead | ECON | Unknown | | + + + + + Care Team Providers + +------+ + | Care Semiconductor Packages Sealer Name | Role | Phone | + [...] [address] | | | | | [place] [address] | | | | | | [phone] | | | +--------+ + + + [...] MICHELLE | | | | | | [address] | | | | | | | | +--------+---------+ + + + | 07/26/ | Office | Pulmonology | GrandeNavdeep lopez, | | | 2019 | Visit | | MD Cely GORE | | | | | | [place] | | | | | | [address] | | | | | | | | +--------+---------+ + + + documented as of this encounter Visit Diagnoses Not on filedocumented in this encounter"
--- OUTSIDE RECORDS SUMMARY | ~2019-04-18 | XMS | Encounter Summary ---
Demographics + + + | Address | [address] | | | [place] [address] | + + + | Home Phone [...] | | | | | [place] [address] | | + + + + + | Robson Min | ECON | Unknown | | + + + + + | Isabella Whitehead | ECON | Unknown | | + + + + + Care Team Providers + +------+ + | Care Cra Name | Role | Phone | + [...] RN | Alveolar | | | | [place], | | hypoventilation | | | | [place] [address] | | | | | | [phone] | | | +--------+ + + + [...] MICHELLE | | | | | | [address] | | | | | | | | +--------+---------+ + + + | 07/26/ | Office | Pulmonology | Navdeep Grande, | | | 2019 | Visit | | MD Cely GORE | | | | | | [place] | | | | | | [address] | | | | | | | | +--------+---------+ + + + documented as of this encounter Visit Diagnoses + + | Diagnosis | + + | COPD, mild (HCC) Chronic airway obstruction, not elsewhere classified | + + | Alveolar hypoventilation Other dyspnea and respiratory abnormality | + + documented in this encounter"
--- OUTSIDE RECORDS SUMMARY | ~2019-04-18 | XMS | Encounter Summary ---
Demographics + + + | Address | [address] | | | [place] [address] | + + + | Home Phone [...] | | | | | [place] [address] | | + + + + + | Robson Min | ECON | Unknown | | + + + + + | Isabella Whitehead | ECON | Unknown | | + + + + + Care Team Providers + +------+ + | Care Dbas Name | Role | Phone | + [...] Sleep | Diagnoses | Harjinder | [facility] | | | Services | Medicine | Alveolar | MD Navdeep | [facility] | | | Required | | hypoventilat | [address] | Disorder [address] | | | | | ion JESUSITA and | [address] | [address] | | | | | COPD | [place], | [place], | | | | | overlap | [place] [address] | [place] [address] | | | | | syndrome | Phone: | Phone: | | | | | ([facility]) | [phone] | [phone] | | | | | | Fax: | Fax: | | | | | | [phone] | [phone] | +--------+ + + + + + [...] | | | Pulmonology | (chronic | [address] | [address] | | | | | obstructive | [address] | [place], | | | | | pulmonary | [place] | [place] [address] | | | | | disease) | [address] | Phone: | | | | | ([facility]) | [place] | [phone] | | | | | Procedures | [address] | Fax: | | | | | F/U APPEver CRUZ | Phone: | [phone] | | | | | [place] | [phone] | | | | | | 11/19/17 | Fax: | | | | | | | [phone] | | +--------+--------+ + + + + Encounter Details +--------+---------+ + + + | Date | Type | Department | Care Team | Description | +--------+---------+ + + + | 05[facility]20/ | [facility] | Navdeep Grande, | Alveolar | | 2019 | Visit | PULMONARY [address] | MD [address] | hypoventilation | | | | [place], | [place] | (Primary Dx); COPD, | | | | [place] [address] | [address] | mild (HCC); Tobacco | | | | [phone] | | use disorder; | | | [...] 50,000 Units by mouth Once a w lummi., Disp: , Rfl: fluticasone-salmeterol (ADVAIR DISKUS) 250-50 [...] [place]HELLE | | | | | | [address] | | | | | | | | +--------+---------+ + + + | 07/26/ | Office | Pulmonology | Navdeep Grande, | | | 2019 | Visit | | MD Cely GORE | | | | | | [place] | | | | | | [address] | | | | | | | [...]
--- OUTSIDE RECORDS SUMMARY | ~2019-04-18 | XMS | Encounter Summary ---
Demographics + + + | Address | [address] | | | [place] [address] | + + + | Home Phone [...] | | | | | [place] [address] | | + + + + + | Robson Min | ECON | Unknown | | + + + + + | Isabella Whitehead | ECON | Unknown | | + + + + + Care Team Providers + +------+ + | Care Wellness Instructor Name | Role | Phone | [...] | | apnea, | [address] | | | | | unspecified | [address] | [place], | | | | | type | [place], | [place] [address] | | | | | Alveolar | [place] [address] | Phone: | | | | | hypoventilat | Phone: | [phone] | | | | | ion | [phone] | Fax: | | | | | Procedures | Fax: | [phone] | | | | | [place] | [phone] | | | | | | 6/>YRS [...] + + | 11/22/ | Hospital | [facility] | Navdeep Grande, | Sleep apnea, | | 2018 - | Encounter | MED CTR SLEEP | [address] | unspecified type; | | | | CENTER [address] | [place], [place] | Alveolar | | 11/23/ | | [place], [place] | [address] | hypoventilation; | | 2017 | | [address] | | COPD, mild ([facility]) | | | | [phone] | | | +--------+ + + + [...] by mouth | | 0 | | 02/01/201 | | tablet | Daily. | | [...] MICHELLE | | | | | | [id number] | | | | | | | | +--------+---------+ + + + | 07/26/ | Office | Pulmonology | Navdeep Grande, | | | 2019 | Visit | | [address] | | | | | | [place] | | | | | | [address] | | | | | | | [...]
--- OUTSIDE RECORDS SUMMARY | ~2019-04-18 | XMS | Encounter Summary ---
Demographics + + + | Address | [address] | | | [place] [address] | + + + | Home Phone [...] | | | | | [place] [address] | | + + + + + Care Team Providers + +------+ + | Care Greens Laborer Name | Role | Phone | + +------+ + PCP | Unavailable | + +------+ + Encounter Details +--------+ + + + + | Date | Type | Department | Care Team | Description | +--------+ + + + + | 10/24/ | Respiratory | | Other, Faculty | | | 2006 | Therapy | | [phone] | | +--------+ + + + + [...] | | | | | Y | DRY WALL APPLICATOR | | | | + + + [...] [facility]NETT | [address] | [place], [place] | | | DIAGNOSTICS - | [address] | [address] | | | PULMONARY FUNCTION | | | | + + + + + documented in this encounter Visit Diagnoses Not on filedocumented in this encounter"
--- OUTSIDE RECORDS SUMMARY | ~2019-04-18 | XMS | Encounter Summary ---
Demographics + + + | Address | [address] | | | [place] [address] | + + + | Home Phone [...] | | | | | [place] [address] | | + + + + + | Robson Min | ECON | Unknown | | + + + + + | Isabella Whitehead | ECON | Unknown | | + + + + + Care Team Providers + +------+ + | Care Risk Officer Name | Role | Phone | [...] | | | | | disease, | [place], | [place] [address] | | | | | unspecified | [place] | Phone: | | | | | ([facility]) | [address] | [phone] | | | | | Obstructive | Phone: | Fax: | | | | | sleep apnea | [phone] | [phone] | | | | | (adult) | Fax: | | | | | | (pediatric) | [phone] | | | | | | Procedures [...] | (Primary Dx); | | | | [place], | [place], [place] | Alveolar | | | | [place] [address] | [address] | hypoventilation; JESUSITA | | | | [phone] | | and COPD overlap | | [...] find a support program: Free national quitline: 600-JESW-XGM (589-760-0388). Hospital quit-smoking programs. [place] [employer]: (662.879.3568). [place] [employer] (831-889-4379). Support at home is important too. Nonsmokers can offer praise and encouragement. If the smo ker in your life finds it hard to quit, encourage them to keep trying. Cfgt-ryp-ggxnzvj medicines Nicotine replacement therapymay make quittingeasier. Certain [...] the Air" booklet from the National Cancer Aladdin: smokefree.gov/sites/defau lt/files/pdf/kqvhncgu-xpq-cft-accessible.pdf Date Last Reviewed: 06/17/201619990578-8532 [employer]. [address] [place] [address], [place] [address]. All righ ts reserved. This information is [...] with prednisone and doxycycline. Unfortunately while in [place] at a neurology appointment the patient had a presync opal episode. She also had apparently "run out" of her oxygen. She was subsequently admitt ed to the hospital in [place]. They have had any acute pulmonary illnesses. [...] changes Acid reflux disease Bipolar 1 disorder ([facility]) CHRONIC TENSION HEADACHE Classical migraine without mention of intractable migraine Diabetes mellitus, type 2 ([facility]) Empyema lung ([facility]) 2005 right GI bleeding Hypercholesterolemia Hypertension Hypothyroidism IBS (irritable bowel syndrome) Knee pain Lymphedema Nausea and vomiting Nocturia Obesity Panic anxiety syndrome Pneumonia Pyoderma gangreosum-LE RA (rheumatoid arthritis) ([facility]) Followed by Dr. Becerra Rheumologist in [place] Reflux esophagitis Restless leg syndrome Urinary [...] 50,000 Units by mouth Once a w [place]., Disp: , Rfl: LANTUS SOLOSTAR 100 UNIT/ML [...] QUADR W/PRES (PED/ADOL/ADULT) MULTIDOSE 01/27/2017, 02/10/2018 INFLUENZA, [id number], UNSPECIFIED 03/09/2009 INFLUENZA, UNSPECIFIED FORMULATION 04/27/2000, 02/04/2011, [...] Psychiatric: Affect normal. Data: Discharge summary from [facility] in the [facility] references: The patient was subsequently admitted [...] [place] | | | | | | [address] | | | | | | | [...] Grande MD 09/22/2018 | | | 14:54[facility] | | |physiology. Lung volume testing [...] Grande MD 09/22/2018 14:54 | | |[facility] | | + + + documented [...]
--- OUTSIDE RECORDS SUMMARY | ~2019-04-18 | XMS | Encounter Summary ---
Demographics + + + | Address | [address] | | | [place] [address] | + + + | Home Phone [...] | | | | | [place] [address] | | + + + + + Care Team Providers + +------+ + | Care Reliability Engineer Name | Role | Phone | + +------+ + PCP | Unavailable | + +------+ + Encounter Details +--------+ + + + + | Date | Type | Department | Care Team | Description | +--------+ + + + + | 11/02/ | Respiratory | | Other, Faculty | | | 2006 | Therapy | | [phone] | | +--------+ + + + + [...] [facility] | [address] | [place], [place] | | | DIAGNOSTICS - | [address] | [address] | | | PULMONARY FUNCTION | | | | + + + + + documented in this encounter Visit Diagnoses Not on filedocumented in this encounter"
--- OUTSIDE RECORDS SUMMARY | ~2019-04-18 | XMS | Encounter Summary ---
Demographics + + + | Address | [address] | | | [place] [address] | + + + | Home Phone [...] Team Providers + +------+ + | Care Back Tender Fourdrinier Name | Role | Phone | + [...] + + | 01/19/ | Documentati | [facility] | Nora Francis, | Other (end of study) | | 2019 | on | [facility]ARDIOLOG[place] | Technologist | | | | | [address] | | | | | | [place] | | | | | | [address] | | | | | | [phone] | | | +--------+ + + + [...] [place]HEL[place] | | | | | | [address] | | | | | | | | +--------+---------+ + + + | 07/26/ | Office | Pulmonology | Navdeep Grande, | | | 2019 | Visit | | MD Cely GORE | | | | | | [place] | | | | | | [address] | | | | | | | | +--------+---------+ + + + documented as of this encounter Visit Diagnoses + + | Diagnosis | + + | Palpitations | + + documented in this encounter
--- OUTSIDE RECORDS SUMMARY | ~2019-04-18 | XMS | Encounter Summary ---
Demographics + + + | Address | [address] | | | [place] [address] | + + + | Home Phone [...] | | | | | [place] [address] | | + + + + + Care Team Providers + +------+ + | Care Spinning Lathe Operator Hydraulic Name | Role | Phone | + +------+ + PCP | Unavailable | + +------+ + Encounter Details +--------+ + + + + | Date | Type | Department | Care Team | Description | +--------+ + + + + | 10/31/ | Respiratory | | Other, Faculty | | | 2006 | Therapy | | [phone] | | +--------+ + + + + [...] Cabrera, | | | | | | BOBBIN CLEANER | | | | + + + [...] [facility] | [address] | [place], [place] | | | DIAGNOSTICS - | [address] | [address] | | | PULMONARY FUNCTION | | | | + + + + + documented in this encounter Visit Diagnoses Not on filedocumented in this encounter"
--- OUTSIDE RECORDS SUMMARY | ~2019-04-18 | XMS | Encounter Summary ---
Demographics + + + | Address | [address] | | | [place] [address] | + + + | Home Phone | | + + + | Preferred Language | Unknown | + + + | Marital Status | Single | + + + | Sikh Affiliation | CHR | + + + [...] | | | | | [place] [address] | | + + + + + Care Team Providers + +------+ + | Care Regulator Assembler Name | Role | Phone | + +------+ + PCP | Unavailable | + +------+ + Encounter Details +--------+ + + + + | Date | Type | Department | Care Team | Description | +--------+ + + + + | 11/01/ | Respiratory | | Other, Faculty | | | 2006 | Therapy | | [phone] | | +--------+ + + + + [...] | | | Y | Lisa Wahl, AGITATOR OPERATOR | | | | + + [...] [facility] | [address] | [place], [place] | | | DIAGNOSTICS - | [address] | [address] | | | PULMONARY FUNCTION | | | | + + + + + documented in this encounter Visit Diagnoses Not on filedocumented in this encounter"
--- OUTSIDE RECORDS SUMMARY | ~2019-04-18 | XMS | Encounter Summary ---
Demographics + + + | Address | [address] | | | [place] [address] | + + + | Home Phone [...] | | | | | [place] [address] | | + + + + + Care Team Providers + +------+ + | Care Stoner Out Name | Role | Phone | + +------+ + PCP | Unavailable | + +------+ + Encounter Details +--------+ + + + + | Date | Type | Department | Care Team | Description | +--------+ + + + + | 10/31/ | Respiratory | | Other, Faculty | | | 2006 | Therapy | | [phone] | | +--------+ + + + + [...] Wahl, | | | | | | CUTTING MACHINE OPERATOR | | | | + + [...] [facility] | [address] | [place], [place] | | | DIAGNOSTICS - | [address] | [address] | | | PULMONARY FUNCTION | | | | + + + + + documented in this encounter Visit Diagnoses Not on filedocumented in this encounter"
--- OUTSIDE RECORDS SUMMARY | ~2019-04-18 | XMS | Encounter Summary ---
Demographics + + + | Address | [address] | | | [place] [address] | + + + | Home Phone [...] | | | | | [place] [address] | | + + + + + Care Team Providers + +------+ + | Care Fuel Manager Name | Role | Phone | + +------+ + PCP | Unavailable | + +------+ + Encounter Details +--------+ + + + + | Date | Type | Department | Care Team | Description | +--------+ + + + + | 05/15/ | Results | | Other, Faculty | | | 2000 | Only | | [phone] | | +--------+ + + + + [...] CLIA certified | | | lab at [facility]. The patient will not be charged. Reviewed by Jana | | | Mariola, Ph.D. | | + + + + + + + + | Performing | Address | City/State/Zipcode | Phone Number | | Organization | | | | + + + + + | [facility] DEPARTMENT OF | [address] [place] [address] | [place] [address] | | | PATHOLOGY | [address] | | | + + + + + | [facility] DEPARTMENT OF | [address] | [place] [address] | | | PATHOLOGY | [address] | | | + + + + + documented in this encounter Visit Diagnoses Not on filedocumented in this encounter"
--- OUTSIDE RECORDS SUMMARY | ~2019-04-18 | XMS | Encounter Summary ---
Demographics + + + | Address | [address] | | | [place] [address] | + + + | Home Phone [...] | | | | | [place] [address] | | + + + + + | Robson Min | ECON | Unknown | | + + + + + | Isabella Whitehead | ECON | Unknown | | + + + + + Care Team Providers + +------+ + | Care Outside Collector Name | Role | Phone | + [...] + + | 08/29/ | Telephone | [facility] | Navdeep Grande, | Other (Advair) | | 2019 | | PULMONARY [address] | MD [address] | | | | | [employer] [place], | [place] | | | | | [place] [address] | [address] | | | | | [phone] | | | +--------+ + + + [...] [place] | | | | | | [address] | | | | | | | | +--------+---------+ + + + | 07/26/ | Office | Pulmonology | Navdeep Grande, | | | 2019 | Visit | | [address] | | | | | | [place] | | | | | | [address] | | | | | | | | +--------+---------+ + + + documented as of this encounter Visit Diagnoses Not on filedocumented in this encounter"
--- OUTSIDE RECORDS SUMMARY | ~2019-04-18 | XMS | Encounter Summary ---
Demographics + + + | Address | [address] | | | [place] [address] | + + + | Home Phone [...] Author + + + | Author | [facility] | + + + | Organization | [facility] | + + + | Address | Unknown | + + + | Phone | Unavailable | + + + Support + + + + + | Name | Relationship | Address | Phone | + + + + + | Scot Johnson | ECON | [address] | | | | | [place] [address] | | + + + + + Care Team Providers + +------+ + | Care Log Roper Name | Role | Phone | + +------+ + PCP | Unavailable | + +------+ + Encounter Details +--------+ + + + + | Date | Type | Department | Care Team | Description | +--------+ + + + + | 12/07/ | Results | [facility] | Kacy Caba, | | | 2002 | Only | Medicine at [facility] | [address] | | | | | [address] | [address] | | | | | [address] | [place] [address] | | | | | Mailcode: BAUTISTA Stewart | | | | | | Mando Cohen | | | | | | [place], [place] | | | | | | [address] | | | | | | [phone] | | | +--------+ + + + [...]
--- OUTSIDE RECORDS SUMMARY | ~2019-04-18 | XMS | Encounter Summary ---
Demographics + + + | Address | [address] | | | [place] [address] | + + + | Home Phone [...] | | | | | [place] [address] | | + + + + + Care Team Providers + +------+ + | Care Carbonator Name | Role | Phone | + +------+ + PCP | Unavailable | + +------+ + Encounter Details +--------+ + + + + | Date | Type | Department | Care Team | Description | +--------+ + + + + | 10/31/ | Respiratory | | Other, Faculty | | | 2006 | Therapy | | [phone] | | +--------+ + + + + [...] | | | | | | Rick, SLIP COVER CUTTER | | | | + + [...] [facility] | [address] | [place], [place] | | | DIAGNOSTICS - | [address] | [address] | | | PULMONARY FUNCTION | | | | + + + + + documented in this encounter Visit Diagnoses Not on filedocumented in this encounter"
--- OUTSIDE RECORDS SUMMARY | ~2019-04-18 | XMS | Encounter Summary ---
Demographics + + + | Address | [address] | | | [place] [address] | + + + | Home Phone [...] | | | | | [place] [address] | | + + + + + Care Team Providers + +------+ + | Care Pharmacy Technician Program Director Name | Role | Phone | [...] + + + | [facility] | [address] [place] [address] | [place] [address] | | | PATHOLOGY | [address] | | | + + + + + | [facility] | [address] [place] [address] | [place] [address] | | | PATHOLOGY | [address] [...] DEPARTMENT OF | [address] | [place] [address] | | | PATHOLOGY | [address] | | | + + + + + | [facility] DEPARTMENT OF | [address] | [place] [address] | | | PATHOLOGY | [address] [...] + + + | [facility] | [address] [facility] [facility] | [place] [address] | | | PATHOLOGY | [address] | | | + + + + + | [facility] | [address] [facility] | [place] [address] | | | PATHOLOGY | [address] [...] | + + + + + | [facility] | [address] | [place] [address] | | | LAB-MICRO | | | [...] + + + + + | [facility] | [address] | [place] [address] | | | LAB-MICRO | | | [...] + + + | [facility] | [address] | [place] [address] | | | LAB-MICRO | | | [...] + + + | [facility] | [address] | [place] [address] | | | LAB-MICRO | | | [...] | + + + + + | [facility] DEPARTMENT OF | [employer] | [place] [address] | | | PATHOLOGY | [address] | | | + + + + + | [facility] DEPARTMENT OF | [employer] | [place] [address] | | | PATHOLOGY | [address] [...] | + + + + + | [facility] DEPARTMENT OF | [address] | [place] [address] | | | PATHOLOGY | [address] | | | + + + + + | [facility] DEPARTMENT OF | [address] | [place] [address] | | | PATHOLOGY | [address] [...] + + + | [facility] | [address] | [place] [address] | | | PATHOLOGY | [address] | | | + + + + + | [facility] | [address] [facility] | [place] [address] | | | PATHOLOGY | [address] [...] + | [facility] DEPARTMENT OF | [address] | [place] [address] | | | PATHOLOGY | [address] | | | + + + + + | [facility] DEPARTMENT OF | [address] [address] | [place] [address] | | | PATHOLOGY | [address] [...] DEPARTMENT OF | [address] | [place] [address] | | | PATHOLOGY | [address] | | | + + + + + | [facility] | [address] | [place] [address] | | | PATHOLOGY | [address] [...]
--- OUTSIDE RECORDS SUMMARY | ~2019-04-18 | XMS | Encounter Summary ---
Demographics + + + | Address | [address] | | | [place] [address] | + + + | Home Phone [...] | | | | | [place] [address] | | + + + + + | Robson Min | ECON | Unknown | | + + + + + | Isabella Whitehead | ECON | Unknown | | + + + + + Care Team Providers + +------+ + | Care Associate Sales Name | Role | Phone | + +------+ + | Bart Ba DO | PCP | | + +------+ + Encounter Details +--------+ + + + + | Date | Type | Department | Care Team | Description | +--------+ + + + + | 09/18/ | Abstract | [facility] | Cecilio Amato MD | | | 2013 | | GASTROENTEROLOGY | [address] [facility] | | | | | [address] [facility] | [place], [place] | | | | | [address] [place], [place] | [address] | | | | | [address] | [phone] | | | | | [phone] | | | +--------+ + + + [...] [place] | | | | | | [address] | | | | | | | | +--------+---------+ + + + | 07/26/ | Office | Pulmonology | Navdeep Grande, | | | 2019 | Visit | | MD [address] | | | | | | [place] | | | | | | [address] | | | | | | | [...] [place] | | | [facility] | | [address] | | | - LABORATORY | | | | + + + + + documented in this encounter Visit Diagnoses Not on filedocumented in this encounter"
--- OUTSIDE RECORDS SUMMARY | ~2019-04-18 | XMS | Encounter Summary ---
Demographics + + + | Address | [address] | | | [place] [address] | + + + | Home Phone [...] | | | | | [place] [address] | | + + + + + | Robson Min | ECON | Unknown | | + + + + + | Isabella Whitehead | ECON | Unknown | | + + + + + Care Team Providers + +------+ + | Care Labor Contractor Name | Role | Phone | + +------+ + | Ora Slater | PCP | | + +------+ + Encounter Details +--------+ + + + + | Date | Type | Department | Care Team | Description | +--------+ + + + + | 09/08/ | Documentati | [facility] | Neno Walker | | | 2018 | on | SLEEP DISORDER [address] | MD Srinivas [address] | | | | | [address] | [address] [place] | | | | | [place] [address] | [place] [address] | | | | | [phone] | [phone] | | | | | | | [...] [place] | | | | | | [address] | | | | | | | | +--------+---------+ + + + | 07/26/ | Office | Pulmonology | Navdeep Grande, | | | 2019 | Visit | | MD Cely GORE | | | | | | [place] | | | | | | [address] | | | | | | | | +--------+---------+ + + + documented as of this encounter Visit Diagnoses + + | Diagnosis | + + | Hypoventilation - Primary Other dyspnea and respiratory abnormality | + + documented in this encounter"
--- OUTSIDE RECORDS SUMMARY | ~2019-04-18 | XMS | Encounter Summary ---
Demographics + + + | Address | [address] | | | [place] [address] | + + + | Home Phone [...] | | | | | [place] [address] | | + + + + + | Robson Min | ECON | Unknown | | + + + + + | Isabella Whitehead | ECON | Unknown | | + + + + + Care Team Providers + +------+ + | Care Sped Teacher Name | Role | Phone | [...] + + | 10/02/ | Telephone | [facility] | Cecilio Amato MD | Results (gastric | | 2013 | | GASTROENTEROLOGY | [address] | emptying study) | | | | [address] [facility] | [place], [place] | | | | | [address] [place] [address] | [address] | | | | | [address] | [phone] | | | | | [phone] | | | +--------+ + + + [...] [place] | | | | | | [address] | | | | | | | | +--------+---------+ + + + | 07/26/ | Office | Pulmonology | Navdeep Grande, | | | 2019 | Visit | | [address] | | | | | | [place] | | | | | | [id number] | | | | | | | | +--------+---------+ + + + documented as of this encounter Visit Diagnoses Not on filedocumented in this encounter"
--- OUTSIDE RECORDS SUMMARY | ~2019-04-18 | XMS | Encounter Summary ---
Demographics + + + | Address | [address] | | | [place] [address] | + + + | Home Phone [...] | | | | | [place] [address] | | + + + + + Care Team Providers + +------+ + | Care Transfer Agent Name | Role | Phone | + +------+ + PCP | Unavailable | + +------+ + Encounter Details +--------+ + + + + | Date | Type | Department | Care Team | Description | +--------+ + + + + | 10/30/ | Respiratory | | Other, Faculty | | | 2006 | Therapy | | [phone] | | +--------+ + + + + [...] [facility] | [address] | [place], [place] | | | DIAGNOSTICS - | [address] | [address] | | | PULMONARY FUNCTION | | | | + + + + + documented in this encounter Visit Diagnoses Not on filedocumented in this encounter"
--- OUTSIDE RECORDS SUMMARY | ~2019-04-18 | XMS | Encounter Summary ---
Demographics + + + | Address | [address] | | | [place] [address] | + + + | Home Phone [...] | | | | | [place] [address] | | + + + + + | Robson Min | ECON | Unknown | | + + + + + | Isabella Whitehead | ECON | Unknown | | + + + + + Care Team Providers + +------+ + | Care Psychologist Clinical Name | Role | Phone | + [...] (Primary Dx) | | | | [place] [address] | | | | | | [phone] | | | +--------+ + + + [...] [place] | | | | | | [address] | | | | | | | | +--------+---------+ + + + | 07/26/ | Office | Pulmonology | Navdeep Grande, | | | 2019 | Visit | | MD [address] | | | | | | [place] | | | | | | [address] | | | | | | | [...] | | Sincerely, Jimbo Samayoa M.D. Neurologist [phone] | | | Electronically signed | | + + + documented in this encounter Visit Diagnoses + + | Diagnosis | + + | Intractable migraine with aura without status migrainosus - Primary Migraine with | | aura, with intractable migraine, so stated, without mention of status migrainosus | + + documented in this encounter"
--- OUTSIDE RECORDS SUMMARY | ~2019-04-18 | XMS | Encounter Summary ---
Demographics + + + | Address | [address] | | | [place] [address] | + + + | Home Phone [...] | | | | | [place] [address] | | + + + + + | Robson Min | ECON | Unknown | | + + + + + | Isabella Whitehead | ECON | Unknown | | + + + + + Care Team Providers + +------+ + | Care Wood Milling Machine Operator Name | Role | Phone | + +------+ + | Juanito Avery | DOMONIQUE | | + +------+ + Encounter Details +--------+ + + + + | Date | Type | Department | Care Team | Description | +--------+ + + + + | 09/22/ | Transcribed | [facility] | [facility] | | | 2019 | Orders | [facility] RESPIRATORY | | | | | | THERAPY [address] | | | | | | [place], | | | | | | [place] [address] | | | | | | [phone] | | | +--------+ + + + [...] [place] | | | | | | [address] | | | | | | | | +--------+---------+ + + + | 07/26/ | Office | Pulmonology | Navdeep Grande, | | | 2019 | Visit | | MD Cely GORE | | | | | | [place] | | | | | | [address] | | | | | | | | +--------+---------+ + + + documented as of this encounter Visit Diagnoses Not on filedocumented in this encounter"
--- OUTSIDE RECORDS SUMMARY | ~2019-04-18 | XMS | Encounter Summary ---
Demographics + + + | Address | [address] | | | [place] [address] | + + + | Home Phone [...] | | | | | [place] [address] | | + + + + + | Robson Min | ECON | Unknown | | + + + + + | Isabella Whitehead | ECON | Unknown | | + + + + + Care Team Providers + +------+ + | Care Shop Helper Name | Role | Phone [...] | | | | with aura, | BIOLOGICS SPECIALIST [address] | | | | | intractable, | [address] | [address], [place] | | | | | without | [address] | [place], [place] | | | | | status | [place], [place] | [address] Phone: | | | | | migrainosus | [address] | [phone] | | | | | Procedures | Phone: | Fax: | | | | | [facility] | [phone] | [phone] | | | | | INJECTION | Fax: | | | | | | PAIN CLINIC | [phone] | | | | | | PROCEDURE [...] (Primary Dx) | | | | [place] [address] | | | | | | [phone] | | | +--------+ + + + [...] [place] | | | | | | [address] | | | | | | | | +--------+---------+ + + + | 07/26/ | Office | Pulmonology | Navdeep Grande, | | | 2019 | Visit | | [address] | | | | | | [place] | | | | | | [address] | | | | | | | [...]
--- OUTSIDE RECORDS SUMMARY | ~2019-04-18 | XMS | Encounter Summary ---
Demographics + + + | Address | [address] | | | [place] [address] | + + + | Home Phone | | + + + | Preferred Language | Unknown | + + + | Marital Status | Single | + + + | Adventist Affiliation | CHR | + + + [...] | | | | | [place] [address] | | + + + + + Care Team Providers + +------+ + | Care Histologic Aide Name | Role | Phone | + +------+ + PCP | Unavailable | + +------+ + Encounter Details +--------+ + + + + | Date | Type | Department | Care Team | Description | +--------+ + + + + | 10/29/ | Respiratory | | Other, Faculty | | | 2006 | Therapy | | [phone] | | +--------+ + + + + [...] [facility] | [address] | [place] | | | DIAGNOSTICS - | [address] | [address] | | | PULMONARY FUNCTION | | | | + + + + + documented in this encounter Visit Diagnoses Not on filedocumented in this encounter"
--- OUTSIDE RECORDS SUMMARY | ~2019-04-18 | XMS | Encounter Summary ---
Demographics + + + | Address | [address] | | | [place] [address] | + + + | Home Phone [...] | | | | | [place] [address] | | + + + + + Care Team Providers + +------+ + | Care Dermatology Sales Representative Name | Role | Phone | + +------+ + PCP | Unavailable | + +------+ + Encounter Details +--------+ + + + + | Date | Type | Department | Care Team | Description | +--------+ + + + + | 10/31/ | Respiratory | | Other, Faculty | | | 2006 | Therapy | | [phone] | | +--------+ + + + + [...] Wahl, | | | | | | SORTER PACKER | | | | + + [...] | + + + + + | [facility] | [address] | [place], [place] | | | DIAGNOSTICS - | [place] | [address] | | | PULMONARY FUNCTION | | | | + + + + + documented in this encounter Visit Diagnoses Not on filedocumented in this encounter"
--- OUTSIDE RECORDS SUMMARY | ~2019-04-18 | XMS | Encounter Summary ---
Demographics + + + | Address | [address] | | | [place] [address] | + + + | Home Phone [...] | | | | | [place] [address] | | + + + + + | Robson Min | ECON | Unknown | | + + + + + | Isabella Whitehead | ECON | Unknown | | + + + + + Care Team Providers + +------+ + | Care Forest Fire Management Officer Name | Role | Phone | [...] Zhou PEARSON | | | | | [phone] | [place] [address] | | +--------+ + + + + [...] [place] | | | | | | [address] | | | | | | | | +--------+---------+ + + + | 07/26/ | Office | Pulmonology | [facility], | | | 2019 | Visit | | [address] | | | | | | [place] | | | | | | [id number] | | | | | | | [...]
--- OUTSIDE RECORDS SUMMARY | ~2019-04-18 | XMS | Encounter Summary ---
Demographics + + + | Address | [address] | | | [place] [address] | + + + | Home Phone [...] | | | | | [place] [address] | | + + + + + Care Team Providers + +------+ + | Care Machine Operator General Name | Role | Phone | + +------+ + PCP | Unavailable | + +------+ + Encounter Details +--------+ + + + + | Date | Type | Department | Care Team | Description | +--------+ + + + + | 10/23/ | Respiratory | | Other, Faculty | | | 2006 | Therapy | | [phone] | | +--------+ + + + + [...] | | GAS/HUMIDIT | STANDBY. Yo Beckford, [employer] PIPE MANUFACTURING SUPERVISOR | | | | | Y |Yo Beckford, [employer] PIPE MANUFACTURING SUPERVISOR | | | | + + [...] [facility] | [address] | [place], [place] | | | DIAGNOSTICS - | [place] | [address] | | | PULMONARY FUNCTION | | | | + + + + + documented in this encounter Visit Diagnoses Not on filedocumented in this encounter"
--- OUTSIDE RECORDS SUMMARY | ~2019-04-18 | XMS | Encounter Summary ---
Demographics + + + | Address | [address] | | | [place] [address] | + + + | Home Phone [...] | | | | | [place] [address] | | + + + + + | Robson Min | ECON | Unknown | | + + + + + | Isabella Whitehead | ECON | Unknown | | + + + + + Care Team Providers + +------+ + | Care Health Education Coordinator Name | Role | Phone | [...] [address] | | | | | [place] [address] | | | | | | [phone] | | | +--------+ + + + [...] [place] | | | | | | [id number] | | | | | | | | +--------+---------+ + + + | 07/26/ | Office | Pulmonology | [facility], | | | 2019 | Visit | | [address] | | | | | | [place] | | | | | | [address] | | | | | | | | +--------+---------+ + + + documented as of this encounter Visit Diagnoses Not on filedocumented in this encounter"
--- OUTSIDE RECORDS SUMMARY | ~2019-04-18 | XMS | Encounter Summary ---
Demographics + + + | Address | [address] | | | [place] [address] | + + + | Home Phone [...] | | | | | [place] [address] | | + + + + + | Robson Escobar | ECON | Unknown | | + + + + + | Isabella Whitehead | ECON | Unknown | | + + + + + Care Team Providers + +------+ + | Care Screedman/Laborer Name | Role | Phone | + [...] 2015 - | Encounter | [facility] | [address] [facility] | Diabetes mellitus, | | | | CLINICAL DECISION | [place] [address] | type 2 ([facility]); Drug | | 09/11/ | | [address] [place] [address] | [phone] | overdose, sequela; | | 2014 | | [place], [place] | | Hypokalemia; | | | | [address] | | Hypophosphatemia; | | | | [phone] | | Metabolic | | | | | | encephalopathy; | | | | | | Methamphetamine | | | | | | abuse; Obesity (BMI | | | | | | 30.0-34.9); RA | | | | | | (rheumatoid | | | | | | arthritis) ([facility]); | | | | | | Sinus tachycardia; | | | | | | Seizure ([facility]); Acute | | | | | | respiratory | | | | | | alkalosis; Metabolic | | | | | | acidosis; Acute | | | | | | respiratory failure | | | | | | ([facility]); Hypoxia; | | | | | | [...] documented as of this encounter Discharge Summaries Barirngton Pride MD - 09/13/2014 4:45 PM PDTFormatting of this note might be different f rom the original. Discharge Summaries by Barrington Pride MD at 09/13/14 6238 Author: Barrington Pride MD Service: (none) Author Type: Physician Filed: 09/13/14 2461 Date of Service: 09/13/140 Status: Signed Overseamer: Barrington Pride MD (Physician) [facility] Service: Hospitalist Discharge Summary Date of Admission: [...] up: Herman Ba DO [address] [place] [address] f/u post hospitalization and WBC to resolution [...] MG per tablet Refills: 0 Generic drug: glmrnxzjzq-uuamenx-lebudfch fluticasone-salmeterol 250-50 MCG/DOSE QTY: 2 each Refills: [...] Refills: 0 Commonly known as: LOPRESSOR Nebulizer (clinical specialist medical device) QTY: 1 each Refills: 0 Dispense and [...] are the prescriptions that you need to greens picker. You may get the following medications from [...] | 0 | 10/08/19 | | | gplxtwaior-ycrxsln-q | every 6 hours as | | [...] 09/11/141850 Date of Service: 09/11/141843 Status: Signed Overseamer: Lesa Rdz RN (Registered Nurse) Discharge instructions reviewed the patient, she is awaiting her mother to arrive from [facility] to drive her home. IJ line removed, dressing is clean, dry and intact. Will pass on to maintenance supervisor 2nd shift RN that discharge is completed and that pt only needs to be assisted to her [employer] vehicle when her mother arrives.Lesa Rdz RN onver james Transaction, Provider Unknown - 09/11/2014 4:37 PM PDT Progress Notes by Lesa Rdz RN at 09/11/14 1637 Author: Lesa Rdz RN Service: (none) Author Type: Registered Nurse Filed: 09/11/14 7913 Date of Service: 09/11/14 1637 Status: Signed Overseamer: Lesa Rdz RN (Registered Nurse) Pt cleared for discharge by CRU.Lesa Rdz RN nuradha Botello MS CCC-[facility]ERMAN - 09/11/2014 1:34 PM PDTFormatting of this note might be differen t from the original. Therapy Progress Note by Anuradha Mendez MA CCC-[facility]ERMAN at 09/11/14 0363 Author: Anuradha Mendez MA [facility] Service: (none) Author Type: Speech and Language Pathologist Filed: 09/11/14 5814 Date of Service: 09/11/14 1334 Status: Signed Overseamer: Anuradha Mendez MA CCC-WE[facility] FISHERMAN (Speech and Language Pathologist) 09/11/14 1328 Swallowing [...] 09/11/141328 Date of Service: 09/11/141328 Status: Signed Overseamer: Nik Duarte RPH (Pharmacist) Vancomycin day 2, est crcl 104.3ml/min, awaiting trough level at 0930 09/12 onver james Transaction, Provider Unknown - 09/11/2014 1:16 PM PDT Case Management by EMA De La Vega at 09/11/14 1316 Author: EMA De La Vega Service: (none) Author Type: Investigator Internal Affairs Filed: 09/11/140 Date of Service: 09/11/141315 Status: Signed Overseamer: EMA De [place] (Investigator Internal Affairs) Per MD. Pride, "Pt is Medically Cleared [...] Date of Service: 09/10/14 100 Status: Signed Overseamer: Krystle Sparks RPH (Pharmacist) Clinical Pharmacy Note: [...] this note might be different from the [facility] dalia. Progress Notes by Jeffy Rahman DO at 09/10/14854 Author: Jeffy Rahman DO Service: Hospitalist Author Type: Physician Filed: 09/10/14900 Date of Service: 09/10/14854 Status: Signed Overseamer: Jeffy Rahman DO (Physician) PROGRESS NOTE 09/10/2014 [...] (none) Author Type: Registered Dietitian Filed: 09/09/14 2567 Date of Service: 09/09/14 143 Status: Signed Overseamer: Juan A Marcano RD (Registered Dietitian) 09/09/14 143 Subjective Timepoint Follow up Pt c/o None [...] / Meals Diabetic maintenance, dental soft per WEIR FISHERMAN. Micronutrient Intake Mineral / Element Intake Magnesium [...] Service: Hospitalist Author Type: Physician Filed: 09/09/14 9117 Date of Service: 09/09/14 1206 Status: Signed Overseamer: Jeffy Rahman DO (Physician) PROGRESS NOTE 09/09/2014 [...] 09/09/14449 Date of Service: 09/09/14447 Status: Signed Overseamer: Devi Vora RN (Registered Nurse) Pt is [...] 09/08/143 Date of Service: 09/08/141331 Status: Signed Overseamer: Karina Mayer RN (Registered Nurse) Report given to MARTHA Deleon. Will transfer pt at this time. onver james Transaction, Provider Unknown - 09/08/2014 1:26 PM PDT Nurse Progress Note by Karina Mayer RN at 09/08/14 1326 Author: Karina Mayer RN Service: (none) Author Type: Registered Nurse Filed: 09/08/14 1327 Date of Service: 09/08/146 Status: Signed Overseamer: Karina Mayer RN (Registered Nurse) Attempted to start peripheral IV. Attempt unsuccessful. onver james Transaction, Provider Unknown - 09/08/2014 1:04 PM PDT Case Management by EMA Verma at 09/08/14 130 Author: EMA Verma Service: (none) Author Type: Investigator Internal Affairs Filed: 09/08/14 1315 Date of Service: 09/08/14 1304 Status: Signed Overseamer: EMA Verma (Investigator Internal Affairs) 09/08/14 1305 Discharge Planning Evaluation Admitting Diagnosis OD Readmission [...] Prescription Plan Yes Name of Pharmacy [facility] [place] Anticipated Disposition Facility Type Home Met with: [...] a contract. Pt has a son in [place] and a sister in [place]. Await CRU to evid. Patient's PCP is: HERMAN BA Patient's insurance:[place] [facility] Coverage concerns: Medication coverage/concerns: Lisandra's Bedside Delivery: Community resources utilized / needed: Assistance in transportation: Mother can transport Identification of any specific education / training: Barriers to Discharge / Alternative housing needed: Anticipated DCP: CRU to eval. Bella Diehl Laurie Esteban MS CCC-[facility] - 09/08/2014 10:45 AM PDTFormatting of this note might be different fr om the original. Therapy Progress Note by Laurie Steen MS CCC-[facility]ER[facility] at 09/08/14 104 Author: Laurie Steen MS [facility] Service: (none) Author Type: Speech Therapist Filed: 09/08/14 5011 Date of Service: 09/08/141044 Status: Signed Overseamer: Laurie Steen MS CCC-[facility]ER[facility] (Speech Therapist) 09/08/14 1041 Swallowing Assessment Eval [...] Swallow strategies;Diet tolerance monitoring;Patient/Family education Dysphagia Goals Mcfp Goals Safe/efficient oral intake Pt will have safe/efficient oral intake Regular diet;New/revised goal;With min cues Short Term Goals Tolerate diet Pt will tolerate diet Dental soft;New/revised goal;With min supervision evin Romie DEEJAY Salazar - 09/08/2014 6:44 AM PDTFormatting of this note might be different from the o riginal. Progress Notes by DEEJAY Astorga at 09/08/1444 Author: DEEJAY Astorga Service: Engineering Project Manager Author Type: Nurse Practitioner Filed: 09/08/14 1248 Date of Service: 09/08/14643 Status: Signed Overseamer: DEEJAY Astorga (Nurse Practitioner) [facility] Service: Engineering Project Manager Progress Note [facility] Escobar 44 [facility] [...] by family members to the ED in [place] on 09/04. 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 Glucose was [...] acid, but again, level normal. Discussed with real estate legal secretary at [facility]. Could possibly be d/t methamphetamine intoxication. [...] 09/08/148 Date of Service: 09/08/1422 Status: Signed Overseamer: Beth Huang RN (Registered Nurse) RN talking with pt during midnight reassessment found pt to have increased RR and anxious.R N talked with pt about slow deep breathing, RN talked with pt and asked if she knew why she was in the hospital, pt stated that she remembers taking "a lot" of hydrocodone for a drug overdose, however doesn't remember how much. arc welder apprentice notified. 1mg ativan ordered Q4 for anxiety at this time. Will continue to monitor. Beth Huang RN onver james Transaction, Provider Unknown - 09/07/2014 9:14 PM PDT Nurse Progress Note by Beth Huang RN at 09/07/142113 Author: Beth Huang RN Service: (none) Author Type: Registered Nurse Filed: 09/07/142114 Date of Service: 09/07/142113 Status: Signed Overseamer: Beth Huang RN (Registered Nurse) Per day [...] Author: EMA Verma Service: (none) Author Type: Investigator Internal Affairs Filed: 09/07/141404 Date of Service: 09/07/141403 Status: Signed Overseamer: EMA Verma (Investigator Internal Affairs) Placed t/c to pt's son Robson [phone] . He is on his way into [...] Notes by Tyler Edwards MD at 09/07/14 2323 Author: Tyler Edwards MD Service: Nephrology Author Type: Physician Filed: 09/07/14 1351 Date of Service: 09/07/14 1349 Status: Signed Overseamer: Tyler Edwards MD (Physician) Noted Normalization of Cr and electrolytes. Bp is controlled and ACID BASE IS improved. Pt was not examined. Will Sign off at this time . Should be there any concerns , please call with questions or reconsult. asper Rollins MD - 09/07/2014 1:38 PM PDT Progress Notes by Casper Rollins MD at 09/07/14 0374 Author: Casper Rollins MD Service: Engineering Project Manager Author Type: Engineering Project Manager Filed: 09/07/14 1403 Date of Service: 09/07/142 Status: Signed Overseamer: Casper Rollins MD (Physician) [facility] Service: Engineering Project Manager Progress Note Kait Escobar 44 [facility] [...] by family members to the ED in [place] on 09/04. 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 Glucose was [...] acid, but again, level normal. Discussed with real estate legal secretary at [facility]. Could possibly be d/t methamphetamine intoxication. Unknown [...] 1432 Date of Service: 09/06/141420 Status: Signed Overseamer: Mary Mclean RN (Registered Nurse) Patient seen today by waterproofer helper for evaluation due to low Pablo. Today's [...] 1117 Date of Service: 09/06/141115 Status: Signed Overseamer: Angela Saenz RD, CD (Registered Dietitian) 09/06/14 [...] Estimated Energy Needs Total Energy Estimated Needs 6187-2143 kcal/day Method for Estimating Needs 22-25 kcal/kg [...] 09/06/14420 Date of Service: 09/06/14419 Status: Signed Overseamer: Justina Reyes, RN (Registered Nurse) Unable to complete pt admission documentation d/t pt family not present and pt is intubated . Thank you. onver james Transaction, Provider Unknown - 09/06/2014 2:08 AM PDT Progress Notes by Nelson Mayer RPH at 09/06/14207 Author: Nelson Mayer RPH Service: (none) Author Type: Pharmacist Filed: 09/06/14207 Date of Service: 09/06/14207 Status: Signed Overseamer: Nelson Mayer RPH (Pharmacist) Note ccl 91.7ml/min [...] [place] | | | | | | [address] | | | | | | | [...] | | | Fingerstick | performed at [facility];[address] | | LAB | | | | [address];[place], [place] | | | | | | [address] | | | | + + + [...] | | | Fingerstick | performed at [facility];[address] | | LAB | | | | [address];[place] | | | | | | [id number] | | | | + + + [...] | | | Fingerstick | performed at [facility];[address] | | LAB | | | | [address];[place], [place] | | | | | | [address] | | | | + + + [...] EXTERNAL | | | | performed at [facility];[address] | | LAB | | | | [address];[place] | | | | | | [address] | | | | + + + [...] | | | | | | at [facility];[address] | [address];[place] [id number] | | | | + + + [...] K/uL | LAB | | | | [facility], [address] [facility] | | | | | | [place] | | | | | | [address] | | | | + + + + + + | RED CELL | 3.52 (L)Comment: Testing | 3.70 - 5.10 | EXTERNAL | | | COUNT | performed at [facility], [address] | M/uL | LAB | | | | [address], | | | | | | [place] [address] | | | | + + + + + + | Hgb | 11.4Comment: Testing | 11.3 - 15.5 | EXTERNAL | | | | performed at [facility], [address] | g/dL | LAB | | | | [address], | | | | | | [place] [address] | | | | + + + + + + | Hematocrit, | 34.9Comment: Testing | 34.0 - 46.0 % | EXTERNAL | | | POC | performed at [facility], [address] | | LAB | | | | [address], | | | | | | [place] [address] | | | | + + + + + + | MCV | 99.0Comment: Testing | 80.0 - 100.0 fl | EXTERNAL | | | | performed at [facility], [address] | | LAB | | | | [address], | | | | | | [place] [address] | | | | + + + + + + | MCH | 32.4Comment: Testing | 27.0 - 34.0 pg | EXTERNAL | | | | performed at [facility], [address] | | LAB | | | | [address], | | | | | | [place] [address] | | | | + + + + + + | MCHC | 32.7Comment: Testing | 32.0 - 35.5 | EXTERNAL | | | | performed at [facility], [address] | g/dL | LAB | | | | [address], | | | | | | [place] [id number] | | | | + + + + + + | RDW-CV | 55.6 (H)Comment: Testing | 37 - 53 fl | EXTERNAL | | | | performed at [facility], [address] | | LAB | | | | [address], | | | | | | [place] [id number] | | | | + + + + + + | Platelet | 250Comment: Testing | 150 - 400 K/uL | EXTERNAL | | | Count | performed at [facility], [address] | | LAB | | | Plasma | [address], | | | | | | [place] [id number] | | | | + + + + + + | MPV | 8.8Comment: Testing | fl | EXTERNAL | | | | performed at [facility], [address] | | LAB | | | | [address], | | | | | | [place] [address] | | | | + + + + + + | Differentia | AUTOMATEDComment: | | EXTERNAL | | | l Type | Testing performed at | | LAB | | | | [facility], [address] | | | | | | [place] | | | | | | [address] | | | | + + + + + + | % Segmented | 65.20Comment: Testing | % | EXTERNAL | | | | performed at [facility], [address] | | LAB | | | Neutrophils | [address], | | | | | | [place] [address] | | | | + + + + + + | % | 19.01Comment: Testing | % | EXTERNAL | | | Lymphocytes | performed at [facility], [address] | | LAB | | | | [address], | | | | | | [place] [address] | | | | + + + + + + | % Monocytes | 13.64Comment: Testing | % | EXTERNAL | | | | performed at [facility], [address] | | LAB | | | | [address], | | | | | | [place] [address] | | | | + + + + + + | % | 1.60Comment: Testing | % | EXTERNAL | | | Eosinophils | performed at [facility], [address] | | LAB | | | [address], | | | | | | [place] [address] | | | | + + + + + + | % Basophils | 0.55Comment: Testing | % | EXTERNAL | | | | performed at [facility], [address] | | LAB | | | | [address], | | | | | | [place] [address] | | | | + + + + + + | Absolute | 7.60 (H)Comment: Testing | 1.90 - 7.40 | EXTERNAL | | | Segmented | performed at [facility], [address] | K/uL | LAB | | | Neutrophils | [address], | | | | | | [place] [id number] | | | | + + + + + + | Absolute | 2.22Comment: Testing | 1.00 - 3.90 | EXTERNAL | | | Lymphocytes | performed at [facility], [address] | K/uL | LAB | | | | [address], | | | | | | [place] [id number] | | | | + + + + + + | Absolute | 1.59 (H)Comment: Testing | 0.00 - 0.80 | EXTERNAL | | | Monocytes | performed at [facility], [address] | K/uL | LAB | | | | [address], | | | | | | [place] [id number] | | | | + + + + + + | Absolute | 0.19Comment: Testing | 0.00 - 0.50 | EXTERNAL | | | Eosinophils | performed at [facility], [address] | K/uL | LAB | | | | [address], | | | | | | [place] [address] | | | | + + + + + + | Absolute | 0.07Comment: Testing | 0.00 - 0.10 | EXTERNAL | | | Basophils | performed at [facility], [address] | K/uL | LAB | | | | [address], | | | | | | [place] [address] | | | | + + + [...] EXTERNAL | | | | performed at [facility];[address] | | LAB | | | | [address];[place], [place] | | | | | | [address] | | | | + + + [...] EXTERNAL | | | | performed at [facility];[address] | | LAB | | | | [address];[place] | | | | | | [address] | | | | + + + [...] EXTERNAL | | | | performed at [facility];[address] | mmol/L | LAB | | | | [address];[place] | | | | | | [address] | | | | + + + + + + | K | 3.8Comment: Testing | 3.5 - 4.9 | EXTERNAL | | | | performed at [facility];[address] | mmol/L | LAB | | | | [address];[place] | | | | | | [address] | | | | + + + + + + | Cl | 101Comment: Testing | 99 - 109 mmol/L | EXTERNAL | | | | performed at [facility];[address] | | LAB | | | | [address];[place] | | | | | | [address] | | | | + + + + + + | CO2 | 29Comment: Testing | 23 - 32 mmol/L | EXTERNAL | | | | performed at [facility];[address] | | LAB | | | | [address];[place] | | | | | | [address] | | | | + + + + + + | Anion Gap | 11Comment: Testing | 5 - 20 mmol/L | EXTERNAL | | | | performed at [facility];[address] | | LAB | | | | [address];[place] | | | | | | [address] | | | | + + + + + + | Glucose, | 184 (H)Comment: Testing | 65 - 99 mg/dL | EXTERNAL | | | Fasting | performed at [facility];[address] | | LAB | | | | [address];[place] | | | | | | [address] | | | | + + + + + + | BUN | 10Comment: Testing | 8 - 25 mg/dL | EXTERNAL | | | | performed at [facility];[address] | | LAB | | | | [address];[place] | | | | | | [address] | | | | + + + + + + | Creatinine | 0.82Comment: Testing | 0.50 - 1.00 | EXTERNAL | | | | performed at [facility];[address] | mg/dL | LAB | | | | [address];[place] | | | | | | [address] | | | | + + + + + + | BUN/Creatin | 12Comment: Testing | | EXTERNAL | | | ine Ratio | performed at [facility];[address] | | LAB | | | | [address];[place] | | | | | | [address] | | | | + + + + + + | Calcium | 9.1Comment: Testing | 8.5 - 10.5 | EXTERNAL | | | | performed at [facility];[address] | mg/dL | LAB | | | | [address];[place] | | | | | | [address] | | | | + + + [...] | | | | | | at [facility];[address] [place] [address] | | | | | | [facility];[place] [address] | | | | + + + [...] | | | Fingerstick | performed at [facility];[address] | | LAB | | | | [address] [facility];[place], [place] | | | | | | [address] | | | | + + + [...] | | | Fingerstick | performed at [facility];[address] | | LAB | | | | [address];[place] | | | | | | [address] | | | | + + + [...] | | | | | [place] [address] | | | | + + + + + + | Clarity | CLEARComment: Testing | | EXTERNAL | | | | performed at [facility], [address] | | LAB | | | | [address], | | | | | | [place] [address] | | | | + + + + + + | Specific | 1.007Comment: Testing | 1.002 - 1.030 | EXTERNAL | | | [place] | performed at [facility], [address] | | LAB | | | | [address], | | | | | | [place] [address] | | | | + + + + + + | Leukocyte | SMALL (A)Comment: | | EXTERNAL | | | Esterase, | Testing performed at | | LAB | | | Urine | [facility], [address] | | | | | | [place] | | | | | | [address] | | | | + + + + + + | Nitrite, | NEGATIVEComment: Testing | | EXTERNAL | | | Urine | performed at [facility], [address] | | LAB | | | | [address], | | | | | | [place] [address] | | | | + + + + + + | Urobilinoge | 0.2Comment: Testing | mg/dL | EXTERNAL | | | n, Urine | performed at [facility], [address] | | LAB | | | [address], | | | | | | [place] [address] | | | | + + + + + + | Protein, | NEGATIVEComment: Testing | mg/dL | EXTERNAL | | | Urine | performed at [facility], [address] | | LAB | | | | [address], | | | | | | [place] [address] | | | | + + + + + + | pH, Urine | 7.0Comment: Testing | 5.0 - 8.0 | EXTERNAL | | | | performed at [facility], [address] | | LAB | | | | [address], | | | | | | [place] [address] | | | | + + + + + + | Blood, | MODERATE (A)Comment: | | EXTERNAL | | | Urine | Testing performed at | | LAB | | | | [facility], [address] | | | | | | [place] | | | | | | [address] | | | | + + + + + + | Ketones | NEGATIVEComment: Testing | mg/dL | EXTERNAL | | | | performed at [facility], [address] | | LAB | | | | [address], | | | | | | [place] [address] | | | | + + + + + + | Bilirubin, | NEGATIVEComment: Testing | | EXTERNAL | | | Urine | performed at [facility], [address] | | LAB | | | | [address], | | | | | | [place] [id number] | | | | + + + + + + | Glucose, | NEGATIVEComment: Testing | mg/dL | EXTERNAL | | | Urine | performed at [facility], [address] | | LAB | | | | [address], | | | | | | [place] [address] | | | | + + + [...] | | | | | [place] [address] | | | | + + + + + + | RBC, UA | 1-5Comment: Testing | 0 - 5 /hpf | EXTERNAL | | | | performed at [facility], [address] | | LAB | | | | [address], | | | | | | [place] [address] | | | | + + + + + + | Epithelial | 16-25Comment: Testing | /lpf | EXTERNAL | | | Cells | performed at [facility], [address] | | LAB | | | | [address], | | | | | | [place] [address] | | | | + + + + + + | Bacteria, | 1+ (A)Comment: Testing | | EXTERNAL | | | UA | performed at [facility], [address] | | LAB | | | | [address], | | | | | | [place] [address] | | | | + + + + + + | Urinalysis | LESS THAN 10 ML | | EXTERNAL | | | Comments | SPECIMENComment: CULTURE | | LAB | | | | TO FOLLOWTesting | | | | | | performed at [facility], [address] | | | | | | [address], | | | | | | [place] [address] | | | | + + + [...] GROWTH | | | Testing performed at [facility], | | | [address] [place] [address] | | + + + + +---------+ [...] | | | Fingerstick | performed at [facility];[address] | | LAB | | | | [address];[place], [place] | | | | | | [address] | | | | + + + [...] AC | | | Testing performed at [facility];[address] | | | [address];[place] [address] CULTURE | | | NO GROWTH | | | Testing performed at [facility], [address] [place] [address], [place], [place] | | | [address] | | + + + + +---------+ [...] AC | | | Testing performed at [facility];[address] | [address];[place] [address] CULTURE | | | NO GROWTH | | | Testing performed at [facility], [address] [facility], [place], [place] | | | [address] | | + + + + +---------+ [...] | | | | [facility], [address] [facility] | | | | | | [place] | | | | | | [address] | | | | + + + + + + | RED CELL | 3.66 (L)Comment: Testing | 3.70 - 5.10 | EXTERNAL | | | COUNT | performed at [facility], [address] | M/uL | LAB | | | | [address], | | | | | | [place] [address] | | | | + + + + + + | Hgb | 11.8Comment: Testing | 11.3 - 15.5 | EXTERNAL | | | | performed at [facility], [address] | g/dL | LAB | | | | [address], | | | | | | [place] [address] | | | | + + + + + + | Hematocrit, | 36.2Comment: Testing | 34.0 - 46.0 % | EXTERNAL | | | POC | performed at [facility], [address] | | LAB | | | | [address], | | | | | | [place] [address] | | | | + + + + + + | MCV | 98.8Comment: Testing | 80.0 - 100.0 fl | EXTERNAL | | | | performed at [facility], [address] | | LAB | | | | [address], | | | | | | [place] [address] | | | | + + + + + + | MCH | 32.1Comment: Testing | 27.0 - 34.0 pg | EXTERNAL | | | | performed at [facility], [address] | | LAB | | | [address], | | | | | | [place] [address] | | | | + + + + + + | MCHC | 32.5Comment: Testing | 32.0 - 35.5 | EXTERNAL | | | | performed at [facility], [address] | g/dL | LAB | | | | [address], | | | | | | [place] [id number] | | | | + + + + + + | RDW-CV | 53.8 (H)Comment: Testing | 37 - 53 fl | EXTERNAL | | | | performed at [facility], [address] | | LAB | | | | [address], | | | | | | [place] [id number] | | | | + + + + + + | Platelet | 267Comment: Testing | 150 - 400 K/uL | EXTERNAL | | | Count | performed at [facility], [address] | | LAB | | | Plasma | [address], | | | | | | [place] [id number] | | | | + + + + + + | MPV | 8.2Comment: Testing | fl | EXTERNAL | | | | performed at [facility], [address] | | LAB | | | | [address], | | | | | | [place] [address] | | | | + + + + + + | Differentia | AUTOMATEDComment: | | EXTERNAL | | | l Type | Testing performed at | | LAB | | | | [facility], [address] | | | | | | [place] | | | | | | [address] | | | | + + + + + + | % Segmented | 69.45Comment: Testing | % | EXTERNAL | | | | performed at [facility], [address] | | LAB | | | Neutrophils | [address], | | | | | | [place] [address] | | | | + + + + + + | % | 17.19Comment: Testing | % | EXTERNAL | | | Lymphocytes | performed at [facility], [address] | | LAB | | | | [address], | | | | | | [place] [address] | | | | + + + + + + | % Monocytes | 11.54Comment: Testing | % | EXTERNAL | | | | performed at [facility], [address] | | LAB | | | | [address], | | | | | | [place] [address] | | | | + + + + + + | % | 1.49Comment: Testing | % | EXTERNAL | | | Eosinophils | performed at [facility], [address] | | LAB | | | | [address], | | | | | | [place] [address] | | | | + + + + + + | % Basophils | 0.33Comment: Testing | % | EXTERNAL | | | | performed at [facility], [address] | | LAB | | | | [address], | | | | | | [place] [address] | | | | + + + + + + | Absolute | 8.64 (H)Comment: Testing | 1.90 - 7.40 | EXTERNAL | | | Segmented | performed at [facility], [address] | K/uL | LAB | | | Neutrophils | [address], | | | | | | [place] [id number] | | | | + + + + + + | Absolute | 2.14Comment: Testing | 1.00 - 3.90 | EXTERNAL | | | Lymphocytes | performed at [facility], [address] | K/uL | LAB | | | | [address], | | | | | | [place] [id number] | | | | + + + + + + | Absolute | 1.44 (H)Comment: Testing | 0.00 - 0.80 | EXTERNAL | | | Monocytes | performed at [facility], [address] | K/uL | LAB | | | | [address], | | | | | | [place] [id number] | | | | + + + + + + | Absolute | 0.19Comment: Testing | 0.00 - 0.50 | EXTERNAL | | | Eosinophils | performed at [facility], [address] | K/uL | LAB | | | | [address], | | | | | | [place] [id number] | | | | + + + + + + | Absolute | 0.04Comment: Testing | 0.00 - 0.10 | EXTERNAL | | | Basophils | performed at [facility], [address] | K/uL | LAB | | | | [address], | | | | | | [place] [id number] | | | | + + + [...] EXTERNAL | | | | performed at [facility], [address] | | LAB | | | | [address], | | | | | | [place] [address] | | | | + + + [...] EXTERNAL | | | | performed at [facility], [address] | | LAB | | | | [address], | | | | | | [place] [address] | | | | + + + [...] | | | | | [place] [address] | | | | + + + + + + | K | 3.8Comment: Testing | 3.5 - 4.9 | EXTERNAL | | | | performed at [facility], [address] | mmol/L | LAB | | | | [address], | | | | | | [place] [address] | | | | + + + + + + | Cl | 99Comment: Testing | 99 - 109 mmol/L | EXTERNAL | | | | performed at [facility], [address] | | LAB | | | | [address], | | | | | | [place] [address] | | | | + + + + + + | CO2 | 30Comment: Testing | 23 - 32 mmol/L | EXTERNAL | | | | performed at [facility], [address] | | LAB | | | | [address], | | | | | | [place] [address] | | | | + + + + + + | Anion Gap | 7Comment: Testing | 5 - 20 mmol/L | EXTERNAL | | | | performed at [facility], [address] | | LAB | | | | [address], | | | | | | [place] [address] | | | | + + + + + + | Glucose, | 222 (H)Comment: Testing | 65 - 99 mg/dL | EXTERNAL | | | Fasting | performed at [facility], [address] | | LAB | | | | [address], | | | | | | [place] [address] | | | | + + + [...] | | | | | [place] [address] | | | | + + + + + + | BUN/Creatin | 14Comment: Testing | | EXTERNAL | | | ine Ratio | performed at [facility], [address] | | LAB | | | | [address], | | | | | | [place] [address] | | | | + + + + + + | Calcium | 9.0Comment: Testing | 8.5 - 10.5 | EXTERNAL | | | | performed at [facility], [address] | mg/dL | LAB | | | | [address], | | | | | | [place] [id number] | | | | + + + [...] | | | | | | at [facility], [address] | | | | | | [address], | | | | | | [place] [id number] | | | | + + + [...] | | | Fingerstick | performed at [facility];[address] | | LAB | | | | [address];[place] | | | | | | [address] | | | | + + + [...] | | | Fingerstick | performed at [facility] | | LAB | | | | [address];[place] | | | | | | [address] | | | | + + + [...] | | | Fingerstick | performed at [facility];[address] | | LAB | | | | [address];[place], [place] | | | | | | [address] | | | | + + + [...] | | | Fingerstick | performed at [facility];[address] | | LAB | | | | [address];[place] | | | | | | [id number] | | | | + + + [...] | | | Fingerstick | performed at [facility];[address] | | LAB | | | | [place] [address];[place] | | | | | | [id number] | | | | + + + [...] EXTERNAL | | | | performed at [facility], [address] | K/uL | LAB | | | | [address], | | | | | | [place] [address] | | | | + + + + + + | RED CELL | 3.65 (L)Comment: Testing | 3.70 - 5.10 | EXTERNAL | | | COUNT | performed at [facility], [address] | M/uL | LAB | | | | [address], | | | | | | [place] [address] | | | | + + + + + + | Hgb | 11.8Comment: Testing | 11.3 - 15.5 | EXTERNAL | | | | performed at [facility], [address] | g/dL | LAB | | | | [address], | | | | | | [place] [address] | | | | + + + + + + | Hematocrit, | 36.1Comment: Testing | 34.0 - 46.0 % | EXTERNAL | | | POC | performed at [facility], [address] | | LAB | | | | [address], | | | | | | [place] [address] | | | | + + + + + + | MCV | 98.7Comment: Testing | 80.0 - 100.0 fl | EXTERNAL | | | | performed at [facility], [address] | | LAB | | | | [address], | | | | | | [place] [address] | | | | + + + + + + | MCH | 32.4Comment: Testing | 27.0 - 34.0 pg | EXTERNAL | | | | performed at [facility], [address] | | LAB | | | | [address], | | | | | | [place] [address] | | | | + + + + + + | MCHC | 32.8Comment: Testing | 32.0 - 35.5 | EXTERNAL | | | | performed at [facility], [address] | g/dL | LAB | | | | [address], | | | | | | [place] [address] | | | | + + + + + + | RDW-CV | 53.8 (H)Comment: Testing | 37 - 53 fl | EXTERNAL | | | | performed at [facility], [address] | | LAB | | | | [address], | | | | | | [place] [address] | | | | + + + + + + | Platelet | 280Comment: Testing | 150 - 400 K/uL | EXTERNAL | | | Count | performed at [facility], [address] | | LAB | | | Plasma | [address], | | | | | | [place] [address] | | | | + + + + + + | MPV | 7.8Comment: Testing | fl | EXTERNAL | | | | performed at [facility], [address] | | LAB | | | | [address], | | | | | | [place] [id number] | | | | + + + + + + | Differentia | AUTOMATEDComment: | | EXTERNAL | | | l Type | Testing performed at | | LAB | | | | [facility], [address] | | | | | | [place] | | | | | | [address] | | | | + + + + + + | % Segmented | 62.96Comment: Testing | % | EXTERNAL | | | | performed at [facility], [address] | | LAB | | | Neutrophils | [address], | | | | | | [place] [address] | | | | + + + + + + | % | 22.27Comment: Testing | % | EXTERNAL | | | Lymphocytes | performed at [facility], [address] | | LAB | | | | [address], | | | | | | [place] [address] | | | | + + + + + + | % Monocytes | 11.29Comment: Testing | % | EXTERNAL | | | | performed at [facility], [address] | | LAB | | | | [address], | | | | | | [place] [address] | | | | + + + + + + | % | 3.04Comment: Testing | % | EXTERNAL | | | Eosinophils | performed at [facility], [address] | | LAB | | | | [address], | | | | | | [place] [address] | | | | + + + + + + | % Basophils | 0.44Comment: Testing | % | EXTERNAL | | | | performed at [facility], [address] | | LAB | | | | [address], | | | | | | [place] [address] | | | | + + + + + + | Absolute | 6.07Comment: Testing | 1.90 - 7.40 | EXTERNAL | | | Segmented | performed at [facility], [address] | K/uL | LAB | | | Neutrophils | [address], | | | | | | [place] [address] | | | | + + + + + + | Absolute | 2.15Comment: Testing | 1.00 - 3.90 | EXTERNAL | | | Lymphocytes | performed at [facility], [address] | K/uL | LAB | | | | [address], | | | | | | [place] [id number] | | | | + + + + + + | Absolute | 1.09 (H)Comment: Testing | 0.00 - 0.80 | EXTERNAL | | | Monocytes | performed at [facility], [address] | K/uL | LAB | | | | [address], | | | | | | [place] [id number] | | | | + + + + + + | Absolute | 0.29Comment: Testing | 0.00 - 0.50 | EXTERNAL | | | Eosinophils | performed at [facility], [address] | K/uL | LAB | | | | [address], | | | | | | [place] [id number] | | | | + + + + + + | Absolute | 0.04Comment: Testing | 0.00 - 0.10 | EXTERNAL | | | Basophils | performed at [facility], [address] | K/uL | LAB | | | | [address], | | | | | | [place] [address] | | | | + + + [...] EXTERNAL | | | | performed at [facility], [address] | | LAB | | | | [address], | | | | | | [place] [id number] | | | | + + + [...] EXTERNAL | | | | performed at [facility], [address] | | LAB | | | | [address], | | | | | | [place] [address] | | | | + + + [...] | | | | | [place] [address] | | | | + + + + + + | K | 4.3Comment: Testing | 3.5 - 4.9 | EXTERNAL | | | | performed at [facility], [address] | mmol/L | LAB | | | | [address], | | | | | | [place] [address] | | | | + + + + + + | Cl | 99Comment: Testing | 99 - 109 mmol/L | EXTERNAL | | | | performed at [facility], [address] | | LAB | | | | [address], | | | | | | [place] [address] | | | | + + + + + + | CO2 | 28Comment: Testing | 23 - 32 mmol/L | EXTERNAL | | | | performed at [facility], [address] | | LAB | | | | [address], | | | | | | [place] [address] | | | | + + + + + + | Anion Gap | 10Comment: Testing | 5 - 20 mmol/L | EXTERNAL | | | | performed at [facility], [address] | | LAB | | | | [address], | | | | | | [place] [address] | | | | + + + + + + | Glucose, | 174 (H)Comment: Testing | 65 - 99 mg/dL | EXTERNAL | | | Fasting | performed at [facility], [address] | | LAB | | | | [address], | | | | | | [place] [address] | | | | + + + + + + | BUN | 15Comment: Testing | 8 - 25 mg/dL | EXTERNAL | | | | performed at [facility], [address] | | LAB | | | | [address], | | | | | | [place] [address] | | | | + + + + + + | Creatinine | 0.77Comment: Testing | 0.50 - 1.00 | EXTERNAL | | | | performed at [facility], [address] | mg/dL | LAB | | | | [address], | | | | | | [place] [address] | | | | + + + + + + | BUN/Creatin | 19Comment: Testing | | EXTERNAL | | | ine Ratio | performed at [facility], [address] | | LAB | | | | [address], | | | | | | [place] [address] | | | | + + + + + + | Calcium | 8.9Comment: Testing | 8.5 - 10.5 | EXTERNAL | | | | performed at [facility], [address] | mg/dL | LAB | | | | [address], | | | | | | [place] [address] | | | | + + + [...] [place], | | | | | | [place] [address] | | | | + + + [...] | | | Fingerstick | performed at [facility] | | LAB | | | | [address];[place], [place] | | | | | | [address] | | | | + + + [...] | | | Fingerstick | performed at [facility];[address] | | LAB | | | | [address];[place] | | | | | | [address] | | | | + + + [...] EXTERNAL | | | | performed at [facility];[address] | | LAB | | | | [address];[place] | | | | | | [address] | | | | + + + [...] | | | Fingerstick | performed at [facility];[address] | | LAB | | | | [address];[place], [place] | | | | | | [address] | | | | + + + [...] | | | Fingerstick | performed at [facility];[address] | | LAB | | | | [address];[place] | | | | | | [address] | | | | + + + [...] EXTERNAL | | | | performed at [facility], [address] | K/uL | LAB | | | | [address], | | | | | | [place] [address] | | | | + + + + + + | RED CELL | 3.62 (L)Comment: Testing | 3.70 - 5.10 | EXTERNAL | | | COUNT | performed at [facility], [address] | M/uL | LAB | | | | [address], | | | | | | [place] [address] | | | | + + + + + + | Hgb | 11.8Comment: Testing | 11.3 - 15.5 | EXTERNAL | | | | performed at [facility], [address] | g/dL | LAB | | | | [address], | | | | | | [place] [address] | | | | + + + + + + | Hematocrit, | 36.1Comment: Testing | 34.0 - 46.0 % | EXTERNAL | | | POC | performed at [facility], [address] | | LAB | | | | [address], | | | | | | [place] [address] | | | | + + + + + + | MCV | 99.7Comment: Testing | 80.0 - 100.0 fl | EXTERNAL | | | | performed at [facility], [address] | | LAB | | | | [address], | | | | | | [place] [address] | | | | + + + + + + | MCH | 32.5Comment: Testing | 27.0 - 34.0 pg | EXTERNAL | | | | performed at [facility], [address] | | LAB | | | | [address], | | | | | | [place] [address] | | | | + + + + + + | MCHC | 32.6Comment: Testing | 32.0 - 35.5 | EXTERNAL | | | | performed at [facility], [address] | g/dL | LAB | | | | [address], | | | | | | [place] [address] | | | | + + + + + + | RDW-CV | 54.7 (H)Comment: Testing | 37 - 53 fl | EXTERNAL | | | | performed at [facility], [address] | | LAB | | | | [address], | | | | | | [place] [address] | | | | + + + + + + | Platelet | 289Comment: Testing | 150 - 400 K/uL | EXTERNAL | | | Count | performed at [facility], [address] | | LAB | | | Plasma | [address], | | | | | | [place] [address] | | | | + + + + + + | MPV | 7.4Comment: Testing | fl | EXTERNAL | | | | performed at [facility], [address] | | LAB | | | | [address], | | | | | | [place] [address] | | | | + + + + + + | Differentia | AUTOMATEDComment: | | EXTERNAL | | | l Type | Testing performed at | | LAB | | | | [facility], [address] | | | | | | [place] | | | | | | [address] | | | | + + + + + + | % Segmented | 53.91Comment: Testing | % | EXTERNAL | | | | performed at [facility], [address] | | LAB | | | Neutrophils | [address], | | | | | | [place], [place] [address] | | | | + + + + + + | % | 26.30Comment: Testing | % | EXTERNAL | | | Lymphocytes | performed at [facility], [address] | | LAB | | | | [address], | | | | | | [place], [place] [address] | | | | + + + + + + | % Monocytes | 15.80Comment: Testing | % | EXTERNAL | | | | performed at [facility], [address] | | LAB | | | | [address], | | | | | | [place] [address] | | | | + + + + + + | % | 3.35Comment: Testing | % | EXTERNAL | | | Eosinophils | performed at [facility], [address] | | LAB | | | | [address], | | | | | | [place] [address] | | | | + + + + + + | % Basophils | 0.64Comment: Testing | % | EXTERNAL | | | | performed at [facility], [address] | | LAB | | | | [address], | | | | | | [place] [address] | | | | + + + + + + | Absolute | 5.40Comment: Testing | 1.90 - 7.40 | EXTERNAL | | | Segmented | performed at [facility], [address] | K/uL | LAB | | | Neutrophils | [address], | | | | | | [place] [address] | | | | + + + + + + | Absolute | 2.63Comment: Testing | 1.00 - 3.90 | EXTERNAL | | | Lymphocytes | performed at [facility], [address] | K/uL | LAB | | | | [address], | | | | | | [place] [address] | | | | + + + + + + | Absolute | 1.58 (H)Comment: Testing | 0.00 - 0.80 | EXTERNAL | | | Monocytes | performed at [facility], [address] | K/uL | LAB | | | | [address], | | | | | | [place] [address] | | | | + + + + + + | Absolute | 0.34Comment: Testing | 0.00 - 0.50 | EXTERNAL | | | Eosinophils | performed at [facility], [address] | K/uL | LAB | | | | [address], | | | | | | [place] [address] | | | | + + + + + + | Absolute | 0.06Comment: Testing | 0.00 - 0.10 | EXTERNAL | | | Basophils | performed at [facility], [address] | K/uL | LAB | | | | [address], | | | | | | [place] [address] | | | | + + + [...] EXTERNAL | | | | performed at [facility], [address] | | LAB | | | | [address], | | | | | | [place] [id number] | | | | + + + [...] EXTERNAL | | | | performed at [facility], [address] | | LAB | | | | [address], | | | | | | [place] [address] | | | | + + + [...] | | | | | [place] [address] | | | | + + + + + + | K | 4.4Comment: Testing | 3.5 - 4.9 | EXTERNAL | | | | performed at [facility], [address] | mmol/L | LAB | | | | [address], | | | | | | [place] [address] | | | | + + + + + + | Cl | 106Comment: Testing | 99 - 109 mmol/L | EXTERNAL | | | | performed at [facility], [address] | | LAB | | | | [address], | | | | | | [place] [address] | | | | + + + + + + | CO2 | 27Comment: Testing | 23 - 32 mmol/L | EXTERNAL | | | | performed at [facility], [address] | | LAB | | | | [address], | | | | | | [place] [address] | | | | + + + + + + | Anion Gap | 10Comment: Testing | 5 - 20 mmol/L | EXTERNAL | | | | performed at [facility], [address] | | LAB | | | | [address], | | | | | | [place] [address] | | | | + + + + + + | Glucose, | 129 (H)Comment: Testing | 65 - 99 mg/dL | EXTERNAL | | | Fasting | performed at [facility], [address] | | LAB | | | | [address], | | | | | | [place] [address] | | | | + + + + + + | BUN | 16Comment: Testing | 8 - 25 mg/dL | EXTERNAL | | | | performed at [facility], [address] | | LAB | | | | [address], | | | | | | [place] [address] | | | | + + + + + + | Creatinine | 0.82Comment: Testing | 0.50 - 1.00 | EXTERNAL | | | | performed at [facility], [address] | mg/dL | LAB | | | | [address], | | | | | | [place] [address] | | | | + + + + + + | BUN/Creatin | 20Comment: Testing | | EXTERNAL | | | ine Ratio | performed at [facility], [address] | | LAB | | | | [address], | | | | | | [place] [address] | | | | + + + + + + | Calcium | 8.9Comment: Testing | 8.5 - 10.5 | EXTERNAL | | | | performed at [facility], [address] | mg/dL | LAB | | | | [address], | | | | | | [place] [address] | | | | + + + [...] | | | Fingerstick | performed at [facility];[address] | | LAB | | | | [address];[place], [place] | | | | | | [address] | | | | + + + [...] | | | Fingerstick | performed at [facility];[address] | | LAB | | | | [address];[place] | | | | | | [id number] | | | | + + + [...] | | | Fingerstick | performed at [facility];[address] | | LAB | | | | [address];[place], [place] | | | | | | [address] | | | | + + + [...] | | | Fingerstick | performed at [facility] | | LAB | | | | [address];[place] | | | | | | [address] | | | | + + + [...] EXTERNAL | | | | performed at [facility];[address] | mmol/L | LAB | | | | [address];[place], [place] | | | | | | [address] | | | | + + + [...] EXTERNAL | | | | performed at [facility] | | LAB | | | | [address];[place], [place] | | | | | | [address] | | | | + + + [...] | | | Fingerstick | performed at [facility];[address] | | LAB | | | | [address];[place], [place] | | | | | | [address] | | | | + + + [...] | | | Fingerstick | performed at [facility];[address] | | LAB | | | | [address];[place] | | | | | | [id number] | | | | + + + [...] | | | Fingerstick | performed at [facility];[address] | | LAB | | | | [address];[place] | | | | | | [address] | | | | + + + [...] | | | Fingerstick | performed at [facility];[address] | | LAB | | | | [address];[place], [place] | | | | | | [address] | | | | + + + [...] EXTERNAL | | | | performed at [facility], [address] | K/uL | LAB | | | | [address], | | | | | | [place] [address] | | | | + + + + + + | RED CELL | 3.42 (L)Comment: Testing | 3.70 - 5.10 | EXTERNAL | | | COUNT | performed at [facility], [address] | M/uL | LAB | | | | [address], | | | | | | [place] [address] | | | | + + + + + + | Hgb | 11.1 (L)Comment: Testing | 11.3 - 15.5 | EXTERNAL | | | | performed at [facility], [address] | g/dL | LAB | | | | [address], | | | | | | [place] [address] | | | | + + + + + + | Hematocrit, | 33.5 (L)Comment: Testing | 34.0 - 46.0 % | EXTERNAL | | | POC | performed at [facility], [address] | | LAB | | | | [address], | | | | | | [place] [address] | | | | + + + + + + | MCV | 97.9Comment: Testing | 80.0 - 100.0 fl | EXTERNAL | | | | performed at [facility], [address] | | LAB | | | | [address], | | | | | | [place] [address] | | | | + + + + + + | MCH | 32.3Comment: Testing | 27.0 - 34.0 pg | EXTERNAL | | | | performed at [facility], [address] | | LAB | | | | [address], | | | | | | [place] [address] | | | | + + + + + + | MCHC | 33.0Comment: Testing | 32.0 - 35.5 | EXTERNAL | | | | performed at [facility], [address] | g/dL | LAB | | | | [address], | | | | | | [place] [address] | | | | + + + + + + | RDW-CV | 55.6 (H)Comment: Testing | 37 - 53 fl | EXTERNAL | | | | performed at [facility], [address] | | LAB | | | | [address], | | | | | | [place] [address] | | | | + + + + + + | Platelet | 321Comment: Testing | 150 - 400 K/uL | EXTERNAL | | | Count | performed at [facility], [address] | | LAB | | | Plasma | [address], | | | | | | [place] [address] | | | | + + + + + + | MPV | 7.4Comment: Testing | fl | EXTERNAL | | | | performed at [facility], [address] | | LAB | | | | [address], | | | | | | [place] [address] | | | | + + + + + + | Differentia | AUTOMATEDComment: | | EXTERNAL | | | l Type | Testing performed at | | LAB | | | | [facility], [address] | | | | | | [place] | | | | | | [address] | | | | + + + + + + | % Segmented | 51.00Comment: Testing | % | EXTERNAL | | | | performed at [facility], [address] | | LAB | | | Neutrophils | [address], | | | | | | [place] [address] | | | | + + + + + + | % | 30.62Comment: Testing | % | EXTERNAL | | | Lymphocytes | performed at [facility], [address] | | LAB | | | | [address], | | | | | | [place] [address] | | | | + + + + + + | % Monocytes | 16.25Comment: Testing | % | EXTERNAL | | | | performed at [facility], [address] | | LAB | | | | [address], | | | | | | [place] [address] | | | | + + + + + + | % | 1.79Comment: Testing | % | EXTERNAL | | | Eosinophils | performed at [facility], [address] | | LAB | | | | [address], | | | | | | [place] [address] | | | | + + + + + + | % Basophils | 0.34Comment: Testing | % | EXTERNAL | | | | performed at [facility], [address] | | LAB | | | | [address], | | | | | | [place] [address] | | | | + + + + + + | Absolute | 4.68Comment: Testing | 1.90 - 7.40 | EXTERNAL | | | Segmented | performed at [facility], [address] | K/[address] | LAB | | | Neutrophils | [address], | | | | | | [place] [address] | | | | + + + + + + | Absolute | 2.81Comment: Testing | 1.00 - 3.90 | EXTERNAL | | | Lymphocytes | performed at [facility], [address] | K[address] | LAB | | | | [address], | | | | | | [place] [address] | | | | + + + + + + | Absolute | 1.49 (H)Comment: Testing | 0.00 - 0.80 | EXTERNAL | | | Monocytes | performed at [facility], [address] | [address] | LAB | | | | [address], | | | | | | [place] [address] | | | | + + + + + + | Absolute | 0.16Comment: Testing | 0.00 - 0.50 | EXTERNAL | | | Eosinophils | performed at [facility], [address] | [address] | LAB | | | | [address], | | | | | | [place] [address] | | | | + + + + + + | Absolute | 0.03Comment: Testing | 0.00 - 0.10 | EXTERNAL | | | Basophils | performed at [facility], [address] | K[address] | LAB | | | | [address], | | | | | | [place] [address] | | | | + + + [...] | | | | | [place] [address] | | | | + + + [...] EXTERNAL | | | | performed at [facility], [address] | | LAB | | | | [address], | | | | | | [place] [address] | | | | + + + [...] | | | | | [place] [address] | | | | + + + + + + | K | 3.9Comment: Testing | 3.5 - 4.9 | EXTERNAL | | | | performed at [facility], [address] | mmol/L | LAB | | | | [address], | | | | | | [place] [address] | | | | + + + + + + | Cl | 114 (H)Comment: Testing | 99 - 109 mmol/L | EXTERNAL | | | | performed at [facility], [address] | | LAB | | | | [address], | | | | | | [place] [address] | | | | + + + + + + | CO2 | 22 (L)Comment: Testing | 23 - 32 mmol/L | EXTERNAL | | | | performed at [facility], [address] | | LAB | | | | [address], | | | | | | [place] [address] | | | | + + + + + + | Anion Gap | 10Comment: Testing | 5 - 20 mmol/L | EXTERNAL | | | | performed at [facility], [address] | | LAB | | | | [address], | | | | | | [place] [address] | | | | + + + + + + | Glucose, | 122 (H)Comment: Testing | 65 - 99 mg/dL | EXTERNAL | | | Fasting | performed at [facility], [address] | | LAB | | | | [address], | | | | | | [place] [address] | | | | + + + [...] | | | | | [place] [address] | | | | + + + + + + | BUN/Creatin | 18Comment: Testing | | EXTERNAL | | | ine Ratio | performed at [facility], [address] | | LAB | | | | [address], | | | | | | [place] [address] | | | | + + + + + + | Calcium | 8.7Comment: Testing | 8.5 - 10.5 | EXTERNAL | | | | performed at [facility], [address] | mg/dL | LAB | | | | [facility], | | | | | | [place] [id number] | | | | + + + [...] W | | | | | | [facility], | | | | | | [place] [id number] | | | | + + + [...] | | | Fingerstick | performed at [facility];[address] | | LAB | | | | [address];[place] | | | | | | [address] | | | | + + + [...] | | | Fingerstick | performed at [facility];[address] | | LAB | | | | [address];[place], [place] | | | | | | [address] | | | | + + + [...] EXTERNAL | | | | performed at [facility];888 | mmol/L | LAB | | | | [address];[place] | | | | | | [id number] | | | | + + + [...] | | | Fingerstick | performed at [facility];[address] | | LAB | | | | [address];[place], [place] | | | | | | [address] | | | | + + + [...] | | | Fingerstick | performed at [facility];[address] | | LAB | | | | [address];[place] | | | | | | [address] | | | | + + + [...] | | | Fingerstick | performed at [facility];[address] | | LAB | | | | [address];[place], [place] | | | | | | [address] | | | | + + + [...] EXTERNAL | | | | performed at [facility];888 | mmol/L | LAB | | | | [address];[place], [place] | | | | | | [address] | | | | + + + [...] | | | Fingerstick | performed at [facility];[address] | | LAB | | | | [address];[place] | | | | | | [id number] | | | | + + + [...] | | | Fingerstick | performed at [facility];[address] | | LAB | | | | [address];[place] | | | | | | [phone] [...] EXTERNAL | | | | performed at [facility];888 | mmol/L | LAB | | | | [address];[place] | | | | | | [id number] | | | | + + + [...] | | | Fingerstick | performed at [facility];[address] | | LAB | | | | [address];[place] | | | | | | [id number] | | | | + + + [...] | | | Fingerstick | performed at [facility];[address] | | LAB | | | | [address];[place], [place] | | | | | | [address] | | | | + + + [...] [place] | | | | | | [address] | | | | + + + + + + | Clarity | TURBIDComment: Testing | | EXTERNAL | | | | performed at [facility], [address] | | LAB | | | | [address], | | | | | | [place] [address] | | | | + + + + + + | Specific | 1.026Comment: Testing | 1.002 - 1.030 | EXTERNAL | | | [place] | performed at [facility], [address] | | LAB | | | | [address], | | | | | | [place], [place] [address] | | | | + + + + + + | Leukocyte | NEGATIVEComment: Testing | | EXTERNAL | | | Esterase, | performed at [facility], [address] | | LAB | | | [address]rine | [address], | | | | | | [place] [address] | | | | + + + + + + | Nitrite, | NEGATIVEComment: Testing | | EXTERNAL | | | Urine | performed at [facility], [address] | | LAB | | | | [address], | | | | | | [place] [address] | | | | + + + + + + | Urobilinoge | 0.2Comment: Testing | mg/dL | EXTERNAL | | | n, Urine | performed at [facility], [address] | | LAB | | | | [address], | | | | | | [place] [address] | | | | + + + + + + | Protein, | 100 (A)Comment: Testing | mg/dL | EXTERNAL | | | Urine | performed at [facility], [address] | | LAB | | | | [address], | | | | | | [place] [address] | | | | + + + + + + | pH, Urine | 5.5Comment: Testing | 5.0 - 8.0 | EXTERNAL | | | | performed at [facility], [address] | | LAB | | | | [address], | | | | | | [place] [address] | | | | + + + + + + | Blood, | NEGATIVEComment: Testing | | EXTERNAL | | | Urine | performed at [facility], [address] | | LAB | | | | [address], | | | | | | [place] [address] | | | | + + + + + + | Ketones | TRACE (A)Comment: | mg/dL | EXTERNAL | | | | Testing performed at | | LAB | | | | [facility], [address] | | | | | | [place] | | | | | | [address] | | | | + + + + + + | Bilirubin, | LARGE (A)Comment: | | EXTERNAL | | | Urine | Testing performed at | | LAB | | | | [facility], [address] | | | | | | [place] | | | | | | [address] | | | | + + + + + + | Glucose, | NEGATIVEComment: Testing | mg/dL | EXTERNAL | | | Urine | performed at [facility], [address] | | LAB | | | | [address], | | | | | | [place] [address] | | | | + + + + + + | WBC, UA | 0-2Comment: Testing | 0 - 5 /hpf | EXTERNAL | | | | performed at [facility], [address] | | LAB | | | | [address], | | | | | | [place] [address] | | | | + + + + + + | RBC, UA | 1-5Comment: Testing | 0 - 5 /hpf | EXTERNAL | | | | performed at [facility], [address] | | LAB | | | | [address], | | | | | | [place] [address] | | | | + + + + + + | Epithelial | 0-2Comment: Testing | /lpf | EXTERNAL | | | Cells | performed at [facility], [address] | | LAB | | | | [address], | | | | | | [place] [address] | | | | + + + + + + | Bacteria, | 4+ (A)Comment: Testing | | EXTERNAL | | | UA | performed at [facility], [address] | | LAB | | | | [address], | | | | | | [place] [address] | | | | + + + [...] | | | | | [place] [address] | | | | + + + [...] | | at Ratio | performed at [facility], [address] | | LAB | | | | [address], | | | | | | [place] [address] | | | | + + + [...] | | | Urine | performed at [facility], [address] | | LAB | | | Random | [address], | | | | | | [place] [id number] | | | | + + + [...] | | | Urine | performed at [facility], [address] | | LAB | | | | [address], | | | | | | [place] [address] | | | | + + + [...] | | | Urine | performed at [facility], [address] | | LAB | | | | [address], | | | | | | [place] [address] | | | | + + + [...] | | | Urine | performed at [facility], [address] | | LAB | | | | [address], | | | | | | [place] [address] | | | | + + + [...] | | | Fingerstick | performed at [facility];[address] | | LAB | | | | [address];[place], [place] | | | | | | [address] | | | | + + + [...] EXTERNAL | | | | performed at [facility];[address] | | LAB | | | | [address];[place], [place] | | | | | | [address] | | | | + + + [...] EXTERNAL | | | | performed at [facility];[address] | mmol/L | LAB | | | | [address];[place] | | | | | | [address] | | | | + + + + + + | K | 3.9Comment: Testing | 3.5 - 4.9 | EXTERNAL | | | | performed at [facility];[address] | mmol/L | LAB | | | | [address];[place] | | | | | | [address] | | | | + + + + + + | Cl | 115 (H)Comment: Testing | 99 - 109 mmol/L | EXTERNAL | | | | performed at [facility];[address] | | LAB | | | | [address];[place] | | | | | | [address] | | | | + + + + + + | CO2 | 26Comment: Testing | 23 - 32 mmol/L | EXTERNAL | | | | performed at [facility];[address] | | LAB | | | | [address];[place] | | | | | | [address] | | | | + + + + + + | Anion Gap | 14Comment: Testing | 5 - 20 mmol/L | EXTERNAL | | | | performed at [facility];[address] | | LAB | | | | [address];[place] | | | | | | [address] | | | | + + + + + + | Glucose, | 110 (H)Comment: Testing | 65 - 99 mg/dL | EXTERNAL | | | Fasting | performed at [facility];[address] | | LAB | | | | [address];[place] | | | | | | [address] | | | | + + + + + + | BUN | 19Comment: Testing | 8 - 25 mg/dL | EXTERNAL | | | | performed at [facility];[address] | | LAB | | | | [address];[place] | | | | | | [address] | | | | + + + + + + | Creatinine | 1.23 (H)Comment: Testing | 0.50 - 1.00 | EXTERNAL | | | | performed at [facility];[address] | mg/dL | LAB | | | | [address];[place] | | | | | | [address] | | | | + + + + + + | BUN/Creatin | 16Comment: Testing | | EXTERNAL | | | ine Ratio | performed at [facility];[address] | | LAB | | | | [address];[place] | | | | | | [address] | | | | + + + + + + | Calcium | 9.1Comment: Testing | 8.5 - 10.5 | EXTERNAL | | | | performed at [facility];888 | mg/dL | LAB | | | | [address];[place] | | | | | | [id number] | | | | + + + [...] | | | | | | at [facility];[address];[place] [id number] | | | | + + + [...] | | | Fingerstick | performed at [facility];[address] | | LAB | | | | [address];[place] | | | | | | [address] | | | | + + + [...] | | | Fingerstick | performed at [facility];[address] | | LAB | | | | [address];[place] | | | | | | [id number] | | | | + + + [...] | | LAB | | | | [facility];[address];[place] [address] | | | | + + + + + + | PCO2 ART | 31 (L)Comment: Testing | 35 - 45 mmHg | EXTERNAL | | | | performed at [facility];[address] | | LAB | | | | [address];[place] | | | | | | [address] | | | | + + + + + + | PO2 ART | 93Comment: Testing | 80 - 105 mmHg | EXTERNAL | | | | performed at [facility];[address] | | LAB | | | | [address];[place] | | | | | | [address] | | | | + + + + + + | Lactate, | 0.6Comment: Testing | 0.36 - 1.25 | EXTERNAL | | | Arterial | performed at [facility];[address] | mmol/L | LAB | | | | [address];[place] | | | | | | [address] | | | | + + + + + + | HCO3 ART | 23Comment: Testing | 22 - 26 mmol/L | EXTERNAL | | | | performed at [facility];[address] | | LAB | | | | [address];[place] | | | | | | [address] | | | | + + + + + + | POC | 24Comment: Testing | 23 - 27 mEq/L | EXTERNAL | | | APPEARANCE | performed at [facility];[address] | | LAB | | | UA | [address];[place] | | | | | | [address] | | | | + + + + + + | Base | 0Comment: Testing | 0 - 3 mEq/L | EXTERNAL | | | Excess, | performed at [facility];[address] | | LAB | | | Arterial | [address];[place] | | | | | | [address] | | | | + + + + + + | O2 SAT ART | 98Comment: Testing | 95 - 98 % | EXTERNAL | | | | performed at [facility];[address] | | LAB | | | | [address];[place] | | | | | | [address] | | | | + + + + + + | FiO2, POC | 25Comment: Testing | % | EXTERNAL | | | | performed at [facility];[address] | | LAB | | | | [address];[place] | | | | | | [address] | | | | + + + + + + | Comment, | Tidal Volume = | | EXTERNAL | | | POC | 20Comment: Peep = 5Resp | | LAB | | | | Rate = 46Testing | | | | | | performed at [facility];[address] | | | | | | [address];[place], [place] | | | | | | [address] | | | | + + + [...] EXTERNAL | | | | performed at [facility];[address] | K/uL | LAB | | | | [address];[place] | | | | | | [address] | | | | + + + + + + | RED CELL | 3.56 (L)Comment: Testing | 3.70 - 5.10 | EXTERNAL | | | COUNT | performed at [facility];[address] | M/uL | LAB | | | | [address];[place] | | | | | | [address] | | | | + + + + + + | Hgb | 11.6Comment: Testing | 11.3 - 15.5 | EXTERNAL | | | | performed at [facility];888 | g/dL | LAB | | | | [address];[place] | | | | | | [address] | | | | + + + + + + | Hematocrit, | 33.7 (L)Comment: Testing | 34.0 - 46.0 % | EXTERNAL | | | POC | performed at [facility];[address] | | LAB | | | | [address];[place] | | | | | | [address] | | | | + + + + + + | MCV | 94.6Comment: Testing | 80.0 - 100.0 fl | EXTERNAL | | | | performed at [facility];[address] | | LAB | | | | [address];[place] | | | | | | [address] | | | | + + + + + + | MCH | 32.6Comment: Testing | 27.0 - 34.0 pg | EXTERNAL | | | | performed at [facility];[address] | | LAB | | | | [address];[place] | | | | | | [address] | | | | + + + + + + | MCHC | 34.5Comment: Testing | 32.0 - 35.5 | EXTERNAL | | | | performed at [facility];888 | g/dL | LAB | | | | [address];[place] | | | | | | [address] | | | | + + + + + + | RDW-CV | 53.4 (H)Comment: Testing | 37 - 53 fl | EXTERNAL | | | | performed at [facility];[address] | | LAB | | | | [address];[place] | | | | | | [address] | | | | + + + + + + | Platelet | 344Comment: Testing | 150 - 400 K/uL | EXTERNAL | | | Count | performed at [facility];[address] | | LAB | | | Plasma | [address];[place] | | | | | | [address] | | | | + + + + + + | MPV | 7.3Comment: Testing | fl | EXTERNAL | | | | performed at [facility];[address] | | LAB | | | | [address];[place] | | | | | | [address] | | | | + + + + + + | Differentia | AUTOMATEDComment: | | EXTERNAL | | | l Type | Testing performed at | | LAB | | | | [facility];[address];[place] [address] | | | | + + + + + + | % Segmented | 59.60Comment: Testing | % | EXTERNAL | | | | performed at [facility];[address] | | LAB | | | Neutrophils | [address];[place] | | | | | | [address] | | | | + + + + + + | % | 24.07Comment: Testing | % | EXTERNAL | | | Lymphocytes | performed at [facility];[address] | | LAB | | | | [address];[place] | | | | | | [address] | | | | + + + + + + | % Monocytes | 15.67Comment: Testing | % | EXTERNAL | | | | performed at [facility];[address] | | LAB | | | | [address];[place] | | | | | | [address] | | | | + + + + + + | % | 0.24Comment: Testing | % | EXTERNAL | | | Eosinophils | performed at [facility];[address] | | LAB | | | | [address];[place] | | | | | | [address] | | | | + + + + + + | % Basophils | 0.42Comment: Testing | % | EXTERNAL | | | | performed at [facility];[address] | | LAB | | | | [address];[place] | | | | | | [address] | | | | + + + + + + | Absolute | 5.50Comment: Testing | 1.90 - 7.40 | EXTERNAL | | | Segmented | performed at [facility];[address] | K/uL | LAB | | | Neutrophils | [address];[place] | | | | | | [address] | | | | + + + + + + | Absolute | 2.22Comment: Testing | 1.00 - 3.90 | EXTERNAL | | | Lymphocytes | performed at [facility];[address] | K/uL | LAB | | | | [address];[place] | | | | | | [address] | | | | + + + + + + | Absolute | 1.45 (H)Comment: Testing | 0.00 - 0.80 | EXTERNAL | | | Monocytes | performed at [facility];[address] | K/uL | LAB | | | | [address];[place] | | | | | | [address] | | | | + + + + + + | Absolute | 0.02Comment: Testing | 0.00 - 0.50 | EXTERNAL | | | Eosinophils | performed at [facility];[address] | K/uL | LAB | | | | [address];[place] | | | | | | [address] | | | | + + + + + + | Absolute | 0.04Comment: Testing | 0.00 - 0.10 | EXTERNAL | | | Basophils | performed at [facility];[address] | K/uL | LAB | | | | [address];[place] | | | | | | [id number] | | | | + + + [...] EXTERNAL | | | | performed at [facility];[address] | | LAB | | | | [address];[place], [place] | | | | | | [address] | | | | + + + [...] EXTERNAL | | | | performed at [facility] | | LAB | | | | [address];[place] | | | | | | [address] | | | | + + + [...] EXTERNAL | | | | performed at [facility];888 | mmol/L | LAB | | | | [address];[place] | | | | | | [address] | | | | + + + + + + | K | 3.5Comment: Testing | 3.5 - 4.9 | EXTERNAL | | | | performed at [facility];888 | mmol/L | LAB | | | | [address];[place] | | | | | | [address] | | | | + + + + + + | Cl | 113 (H)Comment: Testing | 99 - 109 mmol/L | EXTERNAL | | | | performed at [facility];[address] | | LAB | | | | [address];[place] | | | | | | [address] | | | | + + + + + + | CO2 | 23Comment: Testing | 23 - 32 mmol/L | EXTERNAL | | | | performed at [facility];[address] | | LAB | | | | [address];[place] | | | | | | [address] | | | | + + + + + + | Anion Gap | 16Comment: Testing | 5 - 20 mmol/L | EXTERNAL | | | | performed at [facility];[address] | | LAB | | | | [address];[place] | | | | | | [address] | | | | + + + + + + | Glucose, | 187 (H)Comment: Testing | 65 - 99 mg/dL | EXTERNAL | | | Fasting | performed at [facility];[address] | | LAB | | | | [address];[place] | | | | | | [address] | | | | + + + + + + | BUN | 19Comment: Testing | 8 - 25 mg/dL | EXTERNAL | | | | performed at [facility];[address] | | LAB | | | | [address];[place] | | | | | | [address] | | | | + + + + + + | Creatinine | 1.00Comment: Testing | 0.50 - 1.00 | EXTERNAL | | | | performed at [facility];888 | mg/dL | LAB | | | | [address];[place] | | | | | | [address] | | | | + + + + + + | BUN/Creatin | 19Comment: Testing | | EXTERNAL | | | ine Ratio | performed at [facility];[address] | | LAB | | | | [address];[place] | | | | | | [address] | | | | + + + + + + | Calcium | 9.1Comment: Testing | 8.5 - 10.5 | EXTERNAL | | | | performed at [facility];888 | mg/dL | LAB | | | | [address];[place] | | | | | | [address] | | | | + + + [...] | | | | | | at [facility];[address] [place] [address] | | | | | | Bl;[place] [address] | | | | + + + [...] JESS | | | Testing performed at [facility], [address], [place] | | | [address] | | + + + + +---------+ [...] + + | [facility] | EXTERNAL LAB | [...] | | | Fingerstick | performed at [facility];[address] | | LAB | | | | [address];[place] | | | | | | [address] | | | | + + + [...] + + | Hemoglobin | 5.1Comment: The [place] | 4.0 - 6.0 % | EXTERNAL [...] | | | | | performed at [facility], [address] | | | | | [address], | | | | | | [place] [address] | | | | + + + [...] | | | | | performed at [facility], [address] | | | | | | [address], | | | | | | [place] [address] | | | | + + + [...] EXTERNAL | | | | performed at [facility];[address] | | LAB | | | | [address];[place], [place] | | | | | | [address] | | | | + + + [...] | | LAB | | | | [facility] [address] | | | | | [address];[place] [address] | | | | + + + + + + | PCO2 ART | 21 (L)Comment: Testing | 35 - 45 mmHg | EXTERNAL | | | | performed at [facility];[address] | | LAB | | | | [address];[place] | | | | | | [address] | | | | + + + + + + | PO2 ART | 61 (L)Comment: Testing | 80 - 105 mmHg | EXTERNAL | | | | performed at [facility];[address] | | LAB | | | | [address];[place] | | | | | | [address] | | | | + + + + + + | Lactate, | 0.9Comment: Testing | 0.36 - 1.25 | EXTERNAL | | | Arterial | performed at [facility];888 | mmol/L | LAB | | | | [address];[place] | | | | | | [address] | | | | + + + + + + | HCO3 ART | 22Comment: Testing | 22 - 26 mmol/L | EXTERNAL | | | | performed at [facility];[address] | | LAB | | | | [address];[place] | | | | | | [address] | | | | + + + + + + | POC | 22 (L)Comment: Testing | 23 - 27 mEq/L | EXTERNAL | | | APPEARANCE | performed at [facility];[address] | | LAB | | | UA | [address];[place] | | | | | | [address] | | | | + + + + + + | Base | 0Comment: Testing | 0 - 3 mEq/L | EXTERNAL | | | Excess, | performed at [facility];[address] | | LAB | | | Arterial | [address];[place] | | | | | | [address] | | | | + + + + + + | O2 SAT ART | 95Comment: Testing | 95 - 98 % | EXTERNAL | | | | performed at [facility];[address] | | LAB | | | | [address];[place] | | | | | | [address] | | | | + + + + + + | FiO2, POC | 25Comment: Testing | % | EXTERNAL | | | | performed at [facility];[address] | | LAB | | | | [address];[place] | | | | | | [address] | | | | + + + + + + | Comment, | Tidal Volume = | | EXTERNAL | | | POC | 472Comment: Peep = 5Resp | | LAB | | | | Rate = 32Testing | | | | | | performed at [facility];[address] | | | | | | [address];[place] | | | | | | [address] | | | | + + + [...] EXTERNAL LAB | | Testing performed at [facility];[address] [place] [address];[place] [address] MRSA PCR | | | NEGATIVE Testing performed at | | | [address];[place] [address] | | + + + + +---------+ [...] EXTERNAL | | | | performed at [facility];888 | mOsm/kg | LAB | | | | [address];[place] | | | | | | [address] | | | | + + + [...] | | LAB | | | | [facility];[address];[place] [address] | | | | + + + + + + | PCO2 ART | 18 (LL)Comment: Testing | 35 - 45 mmHg | EXTERNAL | | | | performed at [facility];[address] | | LAB | | | | [address];[place] | | | | | | [address] | | | | + + + + + + | PO2 ART | 66 (L)Comment: Testing | 80 - 105 mmHg | EXTERNAL | | | | performed at [facility];[address] | | LAB | | | | [address];[place] | | | | | | [address] | | | | + + + + + + | Lactate, | 0.9Comment: Testing | 0.36 - 1.25 | EXTERNAL | | | Arterial | performed at [facility];888 | mmol/L | LAB | | | | [address];[place] | | | | | | [address] | | | | + + + + + + | HCO3 ART | 20 (L)Comment: Testing | 22 - 26 mmol/L | EXTERNAL | | | | performed at [facility];[address] | | LAB | | | | [address];[place] | | | | | | [address] | | | | + + + + + + | POC | 21 (L)Comment: Testing | 23 - 27 mEq/L | EXTERNAL | | | APPEARANCE | performed at [facility];888 | | LAB | | | UA | [address];[place] | | | | | | [address] | | | | + + + + + + | Base | 1Comment: Testing | 0.0 - 2.0 | EXTERNAL | | | deficit | performed at [facility];888 | mmol/L | LAB | | | | [address];[place] | | | | | | [address] | | | | + + + + + + | O2 SAT ART | 97Comment: Testing | 95 - 98 % | EXTERNAL | | | | performed at [facility];[address] | | LAB | | | | [address];[place] | | | | | | [address] | | | | + + + + + + | FiO2, POC | 21Comment: Testing | % | EXTERNAL | | | | performed at [facility];[address] | | LAB | | | | [address];[place] | | | | | | [address] | | | | + + + [...] | | | Patient | performed at [facility];[address] | | LAB | | | | [address];[place] | | | | | | [address] | | | | + + + [...] | | | | | performed at [facility] | | | | | | [facility];[place], [place] | | | | | | [address] | | | | + + + [...] EXTERNAL | | | | performed at [facility];[address] | | LAB | | | | [address];[place], [place] | | | | | | [address] | | | | + + + [...] | | | Serum | performed at [facility];888 | mOsm/kg | LAB | | | | [address];[place] | | | | | | [address] | | | | + + + [...] EXTERNAL | | | | performed at [facility];[address] | | LAB | | | | [address];[place], [place] | | | | | | [address] | | | | + + + [...] EXTERNAL | | | | performed at [facility];888 | mmol/L | LAB | | | | [address];[place] | | | | | | [address] | | | | + + + + + + | K | 2.8 (L)Comment: Testing | 3.5 - 4.9 | EXTERNAL | | | | performed at [facility];888 | mmol/L | LAB | | | | [address];[place] | | | | | | [address] | | | | + + + + + + | Cl | 106Comment: Testing | 99 - 109 mmol/L | EXTERNAL | | | | performed at [facility];[address] | | LAB | | | | [address];[place] | | | | | | [address] | | | | + + + + + + | CO2 | 22 (L)Comment: Testing | 23 - 32 mmol/L | EXTERNAL | | | | performed at [facility];[address] | | LAB | | | | [address];[place] | | | | | | [address] | | | | + + + + + + | Anion Gap | 18Comment: Testing | 5 - 20 mmol/L | EXTERNAL | | | | performed at [facility];[address] | | LAB | | | | [address];[place] | | | | | | [address] | | | | + + + + + + | Glucose, | 276 (H)Comment: Testing | 65 - 99 mg/dL | EXTERNAL | | | Fasting | performed at [facility];[address] | | LAB | | | | [address];[place] | | | | | | [address] | | | | + + + + + + | BUN | 17Comment: Testing | 8 - 25 mg/dL | EXTERNAL | | | | performed at [facility];[address] | | LAB | | | | [address];[place] | | | | | | [address] | | | | + + + + + + | Creatinine | 0.94Comment: Testing | 0.50 - 1.00 | EXTERNAL | | | | performed at [facility];888 | mg/dL | LAB | | | | [address];[place] | | | | | | [address] | | | | + + + + + + | BUN/Creatin | 18Comment: Testing | | EXTERNAL | | | ine Ratio | performed at [facility];888 | | LAB | | | | [address];[place] | | | | | | [address] | | | | + + + + + + | Calcium | 9.2Comment: Testing | 8.5 - 10.5 | EXTERNAL | | | | performed at [facility];888 | mg/dL | LAB | | | | [address];[place] | | | | | | [address] | | | | + + + + + + | Protein, | 6.7Comment: Testing | 6.3 - 8.2 g/dL | EXTERNAL | | | Total | performed at [facility];[address] | | LAB | | | | [address];[place] | | | | | | [address] | | | | + + + + + + | Albumin | 2.8 (L)Comment: Testing | 3.6 - 5.0 g/dL | EXTERNAL | | | | performed at [facility];[address] | | LAB | | | | [address];[place] | | | | | | [address] | | | | + + + + + + | Globulin | 3.8Comment: Testing | 1.3 - 4.9 g/dL | EXTERNAL | | | | performed at [facility];[address] | | LAB | | | | [address];[place] | | | | | | [address] | | | | + + + + + + | A/G Ratio | 0.7 (L)Comment: Testing | 1.0 - 2.4 | EXTERNAL | | | | performed at [facility];[address] | | LAB | | | | [address];[place] | | | | | | [address] | | | | + + + + + + | Bilirubin | 0.5Comment: Testing | 0.1 - 1.5 mg/dL | EXTERNAL | | | Total | performed at [facility];[address] | | LAB | | | | [address];[place] | | | | | | [address] | | | | + + + + + + | ALP, | 81Comment: Testing | 35 - 115 U/L | EXTERNAL | | | External | performed at [facility];[address] | | LAB | | | | [address];[place] | | | | | | [address] | | | | + + + + + + | AST | 36Comment: Testing | 10 - 45 U/L | EXTERNAL | | | | performed at [facility];888 | | LAB | | | | [address];[place] | | | | | | [address] | | | | + + + + + + | ALT | 63Comment: Testing | 10 - 65 U/L | EXTERNAL | | | | performed at [facility];[address] | | LAB | | | | [address];[place] | | | | | | [address] | | | | + + + [...] | | | | | | at [facility];[address] | | | [address];[place] [address] | | | | + + + [...] (500), | | | | | | 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 | | | | | | (25) on 09/06/2014 | | | | | | 12:58:10 AM | | | | + + + + + + + + | Specimen | + + | | + + + + + | Narrative | Performed At | + + + | Historically converted procedure from [facility] Epic environment | EXTERNAL LAB | + [...] | | LAB | | | | [facility];[address] | | | | | [address];[place] [address] | | | | + + + + + + | PCO2 ART | 12 (LL)Comment: Testing | 35 - 45 mmHg | EXTERNAL | | | | performed at [facility];[address] | | LAB | | | | [address];[place] | | | | | | [address] | | | | + + + + + + | PO2 ART | 86Comment: Testing | 80 - 105 mmHg | EXTERNAL | | | | performed at [facility];[address] | | LAB | | | | [address];[place] | | | | | | [address] | | | | + + + + + + | Lactate, | 1.4 (H)Comment: Testing | 0.36 - 1.25 | EXTERNAL | | | Arterial | performed at [facility];888 | mmol/L | LAB | | | | [address];[place] | | | | | | [address] | | | | + + + + + + | HCO3 ART | 11 (L)Comment: Testing | 22 - 26 mmol/L | EXTERNAL | | | | performed at [facility];[address] | | LAB | | | | [address];[place] | | | | | | [address] | | | | + + + + + + | POC | 11 (L)Comment: Testing | 23 - 27 mEq/L | EXTERNAL | | | APPEARANCE | performed at [facility];[address] | | LAB | | | UA | [address];[place] | | | | | | [address] | | | | + + + + + + | Base | 11 (H)Comment: Testing | 0.0 - 2.0 | EXTERNAL | | | deficit | performed at [facility];888 | mmol/L | LAB | | | | [address];[place] | | | | | | [address] | | | | + + + + + + | O2 SAT ART | 98Comment: Testing | 95 - 98 % | EXTERNAL | | | | performed at [facility];[address] | | LAB | | | | [address];[place] | | | | | | [address] | | | | + + + [...] | | LAB | | | | [facility];[address] [place] [address] | | | | | | Blvd;[place] [address] | | | | + + + [...] K/uL | LAB | | | | [facility];[address] | | | | | | [address];[place] [address] | | | | + + + + + -+ | RED CELL | 4.46Comment: Testing | 3.70 - 5.10 | EXTERNAL | | | COUNT | performed at [facility];888 | M/uL | LAB | | | | [address];[place] | | | | | | [address] | | | | + + + + + -+ | Hgb | 14.8Comment: Testing | 11.3 - 15.5 | EXTERNAL | | | | performed at [facility];888 | g/dL | LAB | | | | [address];[place] | | | | | | [address] | | | | + + + + + -+ | Hematocrit, | 42.9Comment: Testing | 34.0 - 46.0 % | EXTERNAL | | | POC | performed at [facility];[address] | | LAB | | | | [address];[place] | | | | | | [address] | | | | + + + + + -+ | MCV | 96.3Comment: Testing | 80.0 - 100.0 fl | EXTERNAL | | | | performed at [facility];888 | | LAB | | | | [address];[place] | | | | | | [address] | | | | + + + + + -+ | MCH | 33.2Comment: Testing | 27.0 - 34.0 pg | EXTERNAL | | | | performed at [facility];[address] | | LAB | | | | [address];[place] | | | | | | [address] | | | | + + + + + -+ | MCHC | 34.5Comment: Testing | 32.0 - 35.5 | EXTERNAL | | | | performed at [facility];888 | g/dL | LAB | | | | [address];[place] | | | | | | [address] | | | | + + + + + -+ | RDW-CV | 53.4 (H)Comment: Testing | 37 - 53 fl | EXTERNAL | | | | performed at [facility];[address] | | LAB | | | | [address];[place] | | | | | | [address] | | | | + + + + + -+ | Platelet | 393Comment: Testing | 150 - 400 K/uL | EXTERNAL | | | Count | performed at [facility];[address] | | LAB | | | Plasma | [address];[place] | | | | | | [address] | | | | + + + + + -+ | MPV | 7.6Comment: Testing | fl | EXTERNAL | | | | performed at [facility];[address] | | LAB | | | | [address];[place] | | | | | | [address] | | | | + + + + + -+ | Differentia | AUTOMATEDComment: | | EXTERNAL | | | l Type | Testing performed at | | LAB | | | | [facility];[address];[place] [address] | | | | + + + + + -+ | % Segmented | 78.26Comment: Testing | % | EXTERNAL | | | | performed at [facility];[address] | | LAB | | | Neutrophils | [address];[place] | | | | | | [address] | | | | + + + + + -+ | % | 8.69Comment: Testing | % | EXTERNAL | | | Lymphocytes | performed at [facility];[address] | | LAB | | | | [address];[place] | | | | | | [address] | | | | + + + + + -+ | % Monocytes | 12.49Comment: Testing | % | EXTERNAL | | | | performed at [facility];[address] | | LAB | | | | [address];[place] | | | | | | [address] | | | | + + + + + -+ | % | 0.12Comment: Testing | % | EXTERNAL | | | Eosinophils | performed at [facility];[address] | | LAB | | | | [address];[place] | | | | | | [address] | | | | + + + + + -+ | % Basophils | 0.44Comment: Testing | % | EXTERNAL | | | | performed at [facility];[address] | | LAB | | | | [address];[place] | | | | | | [address] | | | | + + + + + -+ | Absolute | 8.71 (H)Comment: Testing | 1.90 - 7.40 | EXTERNAL | | | Segmented | performed at [facility];888 | K/uL | LAB | | | Neutrophils | [address];[place] | | | | | | [address] | | | | + + + + + -+ | Absolute | 0.97 (L)Comment: Testing | 1.00 - 3.90 | EXTERNAL | | | Lymphocytes | performed at [facility];888 | K/uL | LAB | | | | [address];[place] | | | | | | [address] | | | | + + + + + -+ | Absolute | 1.39 (H)Comment: Testing | 0.00 - 0.80 | EXTERNAL | | | Monocytes | performed at [facility];888 | K/uL | LAB | | | | [address];[place] | | | | | | [address] | | | | + + + + + -+ | Absolute | 0.01Comment: Testing | 0.00 - 0.50 | EXTERNAL | | | Eosinophils | performed at [facility];888 | K/uL | LAB | | | | [address];[place] | | | | | | [address] | | | | + + + + + -+ | Absolute | 0.05Comment: Testing | 0.00 - 0.10 | EXTERNAL | | | Basophils | performed at [facility];888 | K/uL | LAB | | | | [address];[place] | | | | | | [address] | | | | + + + + + -+ | Na | 139Comment: Testing | 135 - 143 | EXTERNAL | | | | performed at [facility];888 | mmol/L | LAB | | | | [address];[place] | | | | | | [address] | | | | + + + + + -+ | K | 3.6Comment: Testing | 3.5 - 4.9 | EXTERNAL | | | | performed at [facility];888 | mmol/L | LAB | | | | [address];[place] | | | | | | [address] | | | | + + + + + -+ | Cl | 104Comment: Testing | 99 - 109 mmol/L | EXTERNAL | | | | performed at [facility];[address] | | LAB | | | | [address];[place] | | | | | | [address] | | | | + + + + + -+ | CO2 | 12 (LL)Comment: CALLED | 23 - 32 mmol/L | EXTERNAL | | | | RESULTSREAD BACK RESULTS | | LAB | | | | ABIGAIL/DAMIAN AGUIRRE | | | | | | AT 1824 BY SALTesting | | | | | | performed at [facility];[address] | | | | | | [address];[place] | | | | | | [address] | | | | + + + + + -+ | Anion Gap | 26 (H)Comment: Testing | 5 - 20 mmol/L | EXTERNAL | | | | performed at [facility];[address] | | LAB | | | | [address];[place] | | | | | | [address] | | | | + + + + + -+ | Glucose, | 229 (H)Comment: Testing | 65 - 99 mg/dL | EXTERNAL | | | Fasting | performed at [facility];[address] | | LAB | | | | [address];[place] | | | | | | [address] | | | | + + + + + -+ | BUN | 22Comment: Testing | 8 - 25 mg/dL | EXTERNAL | | | | performed at [facility];[address] | | LAB | | | | [address];[place] | | | | | | [address] | | | | + + + + + -+ | Creatinine | 1.07 (H)Comment: Testing | 0.50 - 1.00 | EXTERNAL | | | | performed at [facility];888 | mg/dL | LAB | | | | [address];[place] | | | | | | [address] | | | | + + + + + -+ | BUN/Creatin | 21Comment: Testing | | EXTERNAL | | | ine Ratio | performed at [facility];888 | | LAB | | | | [address];[place] | | | | | | [address] | | | | + + + + + -+ | Calcium | 10.8 (H)Comment: Testing | 8.5 - 10.5 | EXTERNAL | | | | performed at [facility];888 | mg/dL | LAB | | | | [address];[place] | | | | | | [address] | | | | + + + + + -+ | Protein, | 8.5 (H)Comment: Testing | 6.3 - 8.2 g/dL | EXTERNAL | | | Total | performed at [facility];[address] | | LAB | | | | [address];[place] | | | | | | [address] | | | | + + + + + -+ | Albumin | 3.5 (L)Comment: Testing | 3.6 - 5.0 g/dL | EXTERNAL | | | | performed at [facility];[address] | | LAB | | | | [address];[place] | | | | | | [address] | | | | + + + + + -+ | Globulin | 5.0 (H)Comment: Testing | 1.3 - 4.9 g/dL | EXTERNAL | | | | performed at [facility];[address] | | LAB | | | | [address];[place] | | | | | | [address] | | | | + + + + + -+ | A/G Ratio | 0.7 (L)Comment: Testing | 1.0 - 2.4 | EXTERNAL | | | | performed at [facility];[address] | | LAB | | | | [address];[place] | | | | | | [address] | | | | + + + + + -+ | Bilirubin | 0.5Comment: Testing | 0.1 - 1.5 mg/dL | EXTERNAL | | | Total | performed at [facility];[address] | | LAB | | | | [address];[place] | | | | | | [address] | | | | + + + + + -+ | ALP, | 99Comment: Testing | 35 - 115 U/L | EXTERNAL | | | External | performed at [facility];[address] | | LAB | | | | [address];[place] | | | | | | [address] | | | | + + + + + -+ | AST | 55 (H)Comment: Testing | 10 - 45 U/L | EXTERNAL | | | | performed at [facility];[address] | | LAB | | | | [address];[place] | | | | | | [address] | | | | + + + + + -+ | ALT | 81 (H)Comment: Testing | 10 - 65 U/L | EXTERNAL | | | | performed at [facility];[address] | | LAB | | | | [address];[place] | | | | | | [address] | | | | + + + [...] | | | | | | at [facility];[address];[place] [address] | | | | + + + + + -+ | CK, Total | 259 (H)Comment: Testing | 30 - 240 U/L | EXTERNAL | | | | performed at [facility];[address] | | LAB | | | | [address];[place] | | | | | | [address] | | | | + + + [...] | | | | | performed at [facility];888 | | | | | | [address];[place] | | | | | | [address] | | | | + + + + + -+ | aPTT, | 33 (H)Comment: Testing | 23 - 32 seconds | EXTERNAL | | | Patient | performed at [facility];888 | | LAB | | | | [address];[place] | | | | | | [address] | | | | + + + + + -+ | CK-MB | 11.4 (H)Comment: Testing | 0.5 - 3.6 ng/mL | EXTERNAL | | | | performed at [facility];888 | | LAB | | | | [address];[place] | | | | | | [address] | | | | + + + [...] EXTERNAL | | | | performed at [facility] | | LAB | | | | [address];[place], [place] | | | | | | [address] | | | | + + + [...] EXTERNAL | | | | performed at [facility];[address] | | LAB | | | | [address];[place] | | | | | | [id number] | | | | + + + [...] EXTERNAL | | | | performed at [facility];888 | mmol/L | LAB | | | | [address];[place], [place] | | | | | | [address] | | | | + + + [...] | | | Lvl | performed at [facility];888 | mg/dL | LAB | | | | [address];[place], [place] | | | | | | [address] | | | | + + + [...]
--- OUTSIDE RECORDS SUMMARY | ~2019-04-18 | XMS | Encounter Summary ---
Demographics + + + | Address | [address] | | | [place] [address] | + + + | Home Phone [...] | | | | | [place] [address] | | + + + + + | Robson Min | ECON | Unknown | | + + + + + | Isabella Whitehead | ECON | Unknown | | + + + + + Care Team Providers + +------+ + | Care International Editorial Producer Name | Role | Phone | + [...] Zhou PEARSON | | | | | [phone] | [place] [address] | | +--------+ + + + + [...] [place] | | | | | | [address] | | | | | | | | +--------+---------+ + + + | 07/26/ | Office | Pulmonology | Navdeep Grande, | | | 2019 | Visit | | [address] | | | | | | [place] | | | | | | [address] | | | | | | | [...]
--- OUTSIDE RECORDS SUMMARY | ~2019-04-18 | XMS | Encounter Summary ---
Demographics + + + | Address | [address] | | | [place] [address] | + + + | Home Phone [...] | | | | | [place] [address] | | + + + + + | Robson Min | ECON | Unknown | | + + + + + | Isabella Whitehead | ECON | Unknown | | + + + + + Care Team Providers + +------+ + | Care Truck Washer Name | Role | Phone | [...] Zhou PEARSON | | | | | [phone] | [place] [address] | | +--------+ + + + + [...] [place] | | | | | | [address] | | | | | | | | +--------+---------+ + + + | 07/26/ | Office | Pulmonology | Navdeep Grande, | | | 2019 | Visit | | [address] | | | | | | [place] | | | | | | [address] | | | | | | | [...]
--- OUTSIDE RECORDS SUMMARY | ~2019-04-18 | XMS | Encounter Summary ---
Demographics + + + | Address | [address] | | | [place] [address] | + + + | Home Phone [...] | | | | | [place] [address] | | + + + + + Care Team Providers + +------+ + | Care Speech Therapist Early Intervention Name | Role | Phone | + +------+ + PCP | Unavailable | + +------+ + Encounter Details +--------+ + + + + | Date | Type | Department | Care Team | Description | +--------+ + + + + | 10/31/ | Respiratory | | Other, Faculty | | | 2006 | Therapy | | [phone] | | +--------+ + + + + [...] | | | | | Y | MARINE TOWER OPERATOR | | | | + + [...] [facility] | [address] | [place], [place] | | | DIAGNOSTICS - | [address] | [address] | | | PULMONARY FUNCTION | | | | + + + + + documented in this encounter Visit Diagnoses Not on filedocumented in this encounter"
--- OUTSIDE RECORDS SUMMARY | ~2019-04-18 | XMS | Encounter Summary ---
Demographics + + + | Address | [address] | | | [place] [address] | + + + | Home Phone [...] | | | | | [place] [address] | | + + + + + | Robson Min | ECON | Unknown | | + + + + + | Isabella Whitehead | ECON | Unknown | | + + + + + Care Team Providers + +------+ + | Care Sticker Machine Operator Name | Role | Phone [...] + + | 09/25/ | Telephone | [facility] | Cecilio Amato MD | Appointment | | 2013 | | GASTROENTEROLOGY | [address] | (schedule gastric | | | | [address] [facility] | [place], [place] | emptying study); | | | | [address] [place] [address] | [address] | Results (lab test | | | | [address] | [phone] | celiac sprue test) | | | | [phone] | | | +--------+ + + + [...] [place] | | | | | | [address] | | | | | | | | +--------+---------+ + + + | 07/26/ | Office | Pulmonology | Navdeep Grande, | | | 2019 | Visit | | [address] | | | | | | [place] | | | | | | [address] | | | | | | | | +--------+---------+ + + + documented as of this encounter Visit Diagnoses Not on filedocumented in this encounter"
--- OUTSIDE RECORDS SUMMARY | ~2019-04-18 | XMS | Encounter Summary ---
Demographics + + + | Address | [address] | | | [place] [address] | + + + | Home Phone [...] | | | | | [place] [address] | | + + + + + Care Team Providers + +------+ + | Care Shrub Grower Name | Role | Phone | + +------+ + PCP | Unavailable | + +------+ + Encounter Details +--------+ + + + + | Date | Type | Department | Care Team | Description | +--------+ + + + + | 10/22/ | Respiratory | | Other, Faculty | | | 2006 | Therapy | | [phone] | | +--------+ + + + + [...] [facility] | [address] | [place], [place] | | | DIAGNOSTICS - | [address] | [address] | | | PULMONARY FUNCTION | | | | + + + + + documented in this encounter Visit Diagnoses Not on filedocumented in this encounter"
--- OUTSIDE RECORDS SUMMARY | ~2019-04-18 | XMS | Encounter Summary ---
Demographics + + + | Address | [address] | | | [place] [address] | + + + | Home Phone [...] | | | | | [place] [address] | | + + + + + | Robson Min | ECON | Unknown | | + + + + + | Isabella Whitehead | ECON | Unknown | | + + + + + Care Team Providers + +------+ + | Care Cnc Mill Programmer Name | Role | Phone | + +------+ + | Bart Ba DO | PCP | | + +------+ + Encounter Details +--------+ + + + + | Date | Type | Department | Care Team | Description | +--------+ + + + + | 09/18/ | Abstract | [facility] | Cecilio Amato MD | | | 2013 | | GASTROENTEROLOGY | [address] [facility] | | | | | [address] [facility] | [place], [place] | | | | | [address] [place], [place] | [address] | | | | | [address] | [phone] | | | | | [phone] | | | +--------+ + + + [...] [place] | | | | | | [address] | | | | | | | | +--------+---------+ + + + | 07/26/ | Office | Pulmonology | Navdeep Grande, | | | 2019 | Visit | | MD [address] | | | | | | [place] | | | | | | [address] | | | | | | | [...] Natarajan | [place] | | | [facility] | | [address] | | | - LABORATORY | | | | + + + + + documented in this encounter Visit Diagnoses Not on filedocumented in this encounter"
--- OUTSIDE RECORDS SUMMARY | ~2019-04-18 | XMS | Encounter Summary ---
Demographics + + + | Address | [address] | | | [place] [address] | + + + | Home Phone [...] | | | | | [place] [address] | | + + + + + | Robson Min | ECON | Unknown | | + + + + + | Isabella Whitehead | ECON | Unknown | | + + + + + Care Team Providers + +------+ + | Care Painter Hand Name | Role | Phone | [...] | | | Pulmonology | obstructive | [address] | [address] | | | | | pulmonary | [address] | [place], | | | | | disease, | [place] | [place] [address] | | | | | unspecified | [address]106 | Phone: | | | | | ([facility]) | [address] | [phone] | | | | | Procedures | [address] | Fax: | | | | | F/U | Phone: | [phone] | | | | | | [phone] | | | | | | | Fax: | | | | | | | [phone] | | +--------+--------+ + + + + Encounter Details +--------+---------+ + + + | Date | Type | Department | Care Team | Description | +--------+---------+ + + + | 05/26/ | Office | [facility] | Navdeep Grande, | COPD, mild (HCC) | | 2017 | Visit | PULMONARY [address] | MD [address] | (Primary Dx); | | | | [place], | [place], [place] | Alveolar | | | | [place] [address] | [address] | hypoventilation | | | | [phone] | | | +--------+---------+ + + + [...] quit within a month, and do it. [place] to your quit plan Talk to your [...] Track your triggers What gives you that N-eevm-b-cigarette feeling? List all the situations that make [...] wants to stop smoking. Date Last Reviewed: 10/18/201519999400-5632 [employer]. [address] [place] [address]. All righ ts reserved. This information is [...] pain Diabetes mellitus, type 2 ([facility]) Vitamin D deficiency Hypercholesterolemia Hypothyroidism Panic anxiety syndrome IBS (irritable bowel syndrome) Restless leg syndrome Urinary hesitancy Lumbago Nocturia Pyoderma gangreosum-LE Bipolar 1 disorder ([facility]) Hypertension Lymphedema Nausea and vomiting Reflux esophagitis GI bleeding Empyema lung ([facility]) 2005 right Knee pain CHRONIC TENSION [...] mouth 2 times daily., Disp: , Rfl: dpphyxwmqx-osrjmrd-ocajsyvx (BUTALBITAL COMPOUND/ASA) per tablet, One tablet by [...] 50,000 Units by mouth Once a w kluti kaah., Disp: , Rfl: fluticasone-salmeterol (ADVAIR HFA) 45-21 [...] [place] | | | | | | [address] | | | | | | | | +--------+---------+ + + + | 07/26/ | Office | Pulmonology | [facility] [place], | | | 2019 | Visit | | MD Cely GORE | | | | | | [place] | | | | | | [address] | | | | | | | | +--------+---------+ + + + documented as of this encounter Visit Diagnoses + + | Diagnosis | + + | COPD, mild (HCC) - Primary Chronic airway obstruction, not elsewhere classified | + + | Alveolar hypoventilation Other dyspnea and respiratory abnormality | + + documented in this encounter
--- OUTSIDE RECORDS SUMMARY | ~2019-04-18 | XMS | Encounter Summary ---
Demographics + + + | Address | [address] | | | [place] [address] | + + + | Home Phone [...] | | | | | [place] [address] | | + + + + + | Robson Min | ECON | Unknown | | + + + + + | Isabella Whitehead | ECON | Unknown | | + + + + + Care Team Providers + +------+ + | Care Customer Service Supervisor Name | Role | Phone | [...] [address] | | | | | [place], | [place] | | | | | [place] [address] | [phone] | | | | | [phone] | | | +--------+--------+ + + + [...] [place] | | | | | | [address] | | | | | | | | +--------+---------+ + + + | 07/26/ | Office | Pulmonology | [facility] [place], | | | 2019 | Visit | | MD Cely GORE | | | | | | [place] | | | | | | [address] | | | | | | | | +--------+---------+ + + + documented as of this encounter Visit Diagnoses Not on filedocumented in this encounter"
--- OUTSIDE RECORDS SUMMARY | ~2019-04-18 | XMS | Encounter Summary ---
Demographics + + + | Address | [address] | | | [place] [address] | + + + | Home Phone [...] | | | | | [place] [address] | | + + + + + | Robson Min | ECON | Unknown | | + + + + + | Isabella Whitehead | ECON | Unknown | | + + + + + Care Team Providers + +------+ + | Care [facility] Counselor Name | Role | Phone | [...] [phone] | | | | | [place] [address] | | | | | | [phone] | | | +--------+ + + + [...] [place] | | | | | | [address] | | | | | | | | +--------+---------+ + + + | 07/26/ | Office | Pulmonology | [facility] [place], | | | 2019 | Visit | | MD Cely GORE | | | | | | [place] | | | | | | [address] | | | | | | | | +--------+---------+ + + + documented as of this encounter Visit Diagnoses Not on filedocumented in this encounter"
--- OUTSIDE RECORDS SUMMARY | ~2019-04-18 | XMS | Encounter Summary ---
Demographics + + + | Address | [address] | | | [place] [address] | + + + | Home Phone [...] | | | | | [place] [address] | | + + + + + | Robson Min | ECON | Unknown | | + + + + + | Isabella Whitehead | ECON | Unknown | | + + + + + Care Team Providers + +------+ + | Care Machine Tool Operator Name | Role | Phone | [...] Medicine | JESUSITA | Neno Thong | [place] [address] [address] | | | Required | | (obstructive | MD [address] | [address] | | | | | sleep | [facility] | [place], | | | | | apnea) | [facility] | [place] [address] | | | | | Nocturnal | [place], [place] | Phone: | | | | | oxygen | [address] | [phone] | | | | | desaturation | Phone: | Fax: | | | | | E66.2 | [phone] | [phone] | | | | | (ICD-10-CM) | Fax: | | | | | | - [phone] | [phone] | | | | | | (ICD-9-CM) [...] | | | | | | | [facility] | | | | | | [...] + + | 09/21/ | Hospital | [facility] | Neno Walker | JESUSITA (obstructive | | 2019 - | Encounter | [facility] | Jr., MD [address] | sleep apnea); | | | | CENTER [address] | [address] [place] | Obesity | | 09/22/ | | [place], [place] | [place] [address] | hypoventilation | | 2019 | | [address] | [phone] | syndrome (HCC); | | | | [phone] | | Nocturnal oxygen | | | [...] [place] | | | | | | [address] | | | | | | | | +--------+---------+ + + + | 07/26/ Office | Pulmonology | Navdeep Grande, | | | 2019 | Visit | | [address] | | | | | | [place] | | | | | | [address] | | | | | | | [...] Devinarielaaugusto Caceres Sleep | | | [place] [address] | | | Polysomnogram Report on Kait [...] | | Neno Walker Jr., MD, FAASMMedical DirectorBlowing Rock Hospitalhailey Doll | | | [facility] | | | Alma Cooleyinical Missile Inspector of MedicineHuntsman Mental Health Institute | | | [place], [place] | | |The kimmy oxygen saturation [...] |Neno Walker Jr., MD, FAASM | | |Sales Designer | | |Melly Doll [facility] | | |[facility] | | |[place], [place] | | |Clinical special service representative | | |[facility] | | |[place], [place] | | + + + + + | Procedure Note | + + | Neno Walker Jr., MD - 09/30/2018 10:38 AM PDT Melly [facility] | | Disorders [place], [place] [address]Rijvmzcilriyf Report on | | Kait Min performed [...] therapy to assist with her | | COPD.Nneo Walker Jr., MD, FAASMMedical DirectorJenelleariela Doll [facility] | | Disorders CenterProvidence [facility] Hospital [facility] - Havertowninical Associate | | Professor of MedicineBro[place], [place] | |Sales Designer | |[facility] | |[facility] | |[place], [place] | |Clinical special service representative | |[facility] | |[place], [place] | + + POC Blood Gases (09/22/2018 12:51 AM PDT) + + + + + + | Component | Value | Ref Range | Performed | Pathologist | | | | | At | Signature | + + + + + + | Specimen | Artery | | DECORAH | | | Source | | | [...] [address] | [place] | [phone] | | [facility] | | [address] | | | - LABORATORY | | [...]
--- OUTSIDE RECORDS SUMMARY | ~2019-04-18 | XMS | Encounter Summary ---
Demographics + + + | Address | [address] | | | [place] [address] | + + + | Home Phone [...] | | | | | [place] [address] | | + + + + + | Robson Min | ECON | Unknown | | + + + + + | Isabella Whitehead | ECON | Unknown | | + + + + + Care Team Providers + +------+ + | Care Stave And Bolt Equalizer Name | Role | Phone | + [...] | | | DR KACI MICHELLE, | [id number] | | | | | [place] [address] | | | | | | [phone] | | | +--------+ + + + [...] [place] | | | | | | [address] | | | | | | | | +--------+---------+ + + + | 07/26/ | Office | Pulmonology | Navdeep Grande, | | | 2019 | Visit | | MD Cely GORE | | | | | | [place] | | | | | | [address] | | | | | | | | +--------+---------+ + + + documented as of this encounter Visit Diagnoses Not on filedocumented in this encounter"
--- OUTSIDE RECORDS SUMMARY | ~2019-04-18 | XMS | Encounter Summary ---
Demographics + + + | Address | [address] | | | [place] [address] | + + + | Home Phone [...] | | | | | [place] [address] | | + + + + + | Robson Min | ECON | Unknown | | + + + + + | Isabella Whitehead | ECON | Unknown | | + + + + + Care Team Providers + +------+ + | Care Scrap Metal Collector Name | Role | Phone | [...] | | | | | [place] | [address] | [address] | | | | | is without | [address] | [place], | | | | | acute | [place] | [place] [address] | | | | | exacerbation | [address]106 | Phone: | | | | | ([facility]LY [facility]) | [place] | [phone] | | | | | Procedures | [address] | Fax: | | | | | DC OFFICE | Phone: | [phone] | | | | | OUTPATIENT | [phone] | | | | | | NEW 45 | Fax: | | | | | | MINUTES | [phone] | | +--------+--------+ + + + + [...] | (Primary Dx); | | | | [place], | [place], [place] | Chronic bronchitis | | | | [place] [address] | [address] | ([facility]LY [facility]) | | | | [phone] | | | +--------+---------+ + + + [...] 4 times daily., Disp: , Rfl: ; pocyrsxgnx-tuogfqv-gpnosogs (BUTALBITA L COMPOUND/ASA) per tablet, One tablet [...] [place] | | | | | | [address] | | | | | | | [...]
--- OUTSIDE RECORDS SUMMARY | ~2019-04-18 | XMS | Encounter Summary ---
Demographics + + + | Address | [address] | | | [place] [address] | + + + | Home Phone [...] | | | | | [place] [address] | | + + + + + Care Team Providers + +------+ + | Care Brazer Assembler Name | Role | Phone | + +------+ + PCP | Unavailable | + +------+ + Encounter Details +--------+ + + + + | Date | Type | Department | Care Team | Description | +--------+ + + + + | 12/07/ | Results | [facility] | Kacy Caba, | | | 2002 | Only | Medicine at [facility] | [address] | | | | | [address] | [address] | | | | | [address] | [place] [address] | | | | | Mailcode: BAUTISTA Stewart | | | | | | Mando Cohen | | | | | | [place], [place] | | | | | | [address] | | | | | | [phone] | | | +--------+ + + + [...] + +---------+ + + | [facility] DEPARTMENT OF | | | | | RADIOLOGY | | | | + +---------+ + + documented in this encounter Visit Diagnoses Not on filedocumented in this encounter"
--- OUTSIDE RECORDS SUMMARY | ~2019-04-18 | XMS | Encounter Summary ---
Demographics + + + | Address | [address] | | | [place] [address] | + + + | Home Phone [...] + + + | Author | [facility] | | | and [place] | + + + | Organization | [facility] | | [...] | | | | | [place] [address] | | + + + + + | Robson Min | ECON | Unknown | | + + + + + | Isabella Whitehead | ECON | Unknown | | + + + + + Care Team Providers + +------+ + | Care Deckhand Tuna Boat Name | Role | Phone | + +------+ + | Bart Ba DO | PCP | | + +------+ + Encounter Details +--------+ + + + + | Date | Type | Department | Care Team | Description | +--------+ + + + + | 03/15/ | Hospital | [facility] | Jimbo Samayoa MD | Disorientation; | | 2017 | Encounter | HOSPITAL RESPIRATORY | [address] | Dizziness | | | | THERAPY [address] | [place] | | | | | DR [place] | [address] | | | | | [address] | | | | | | [phone] | | | +--------+ + + + [...] 9 | | MISCIndications: | 550mlIPAP 19 [id number] | | | | | | Alveolar | 9 [id number] | | | | | | hypoventilation, [...] not oxygen on her way home. Dong Yan RRT - 03/15/2018 11:59 AM PSTAwake and [...] [place] | | | | | | [address] | | | | | | | | +--------+---------+ + + + | 07/26/ | Office | Pulmonology | Navdeep Grande, | | | 2019 | Visit | | [address] | | | | | | [place] | | | | | | [address] | | | | | | | [...]
--- OUTSIDE RECORDS SUMMARY | ~2019-04-18 | XMS | Encounter Summary ---
Demographics + + + | Address | [address] | | | [place] [address] | + + + | Home Phone [...] | | | | | [place] [address] | | + + + + + | Robson Min | ECON | Unknown | | + + + + + | Isabella Whitehead | ECON | Unknown | | + + + + + Care Team Providers + +------+ + | Care Continuum Of Care Manager Name | Role | Phone | [...] Zhou [address]AR[address] | | | | | [phone] | [place] [address] | | +--------+ + + + + [...] [place] | | | | | | [address] | | | | | | | | +--------+---------+ + + + | 07/26/ | Office | Pulmonology | Navdeep Grande, | | | 2019 | Visit | | [address] | | | | | | [place] | | | | | | [address] | | | | | | | [...]
--- OUTSIDE RECORDS SUMMARY | ~2019-04-18 | XMS | Encounter Summary ---
Demographics + + + | Address | [address] | | | [place] [address] | + + + | Home Phone | | + + + | Preferred Language | Unknown | + + + | Marital Status | Single | + + + | Holiness Affiliation | Unknown | + + + | Race | Unknown | + + + | Ethnic Group | Unknown | + + + Author + + + | Author | [facility] | | | and [place] | + + + | Organization | [facility] | | [...] | | | | | [place] [address] | | + + + + + | Robson Min | ECON | Unknown | | + + + + + | Isabella Whitehead | ECON | Unknown | | + + + + + Care Team Providers + +------+ + | Care Television Installer Helper Name | Role | Phone | [...] | | | Procedures | [place], | [place], [place] | | | | | OFFICE | [place] [address] | [address] Phone: | | | | | VISIT | Phone: | [phone] | | | | | REGULAR | [phone] | Fax: | | | | | | Fax: | [phone] | | | | | | [phone] | | + +--------+ + + + + Encounter Details +--------+---------+ + + + | Date | Type | Department | Care Team | Description | +--------+---------+ + + + | 04/06/ | Office | [facility] | Laine Batista DO | Hypertension, | | 2019 | Visit | CARDIOLOGY [place] | [address] | unspecified type | | | | [address] [facility] | [place], [place] | (Primary Dx); Type 2 | | | | [address] | [id number] | diabetes mellitus | | | | [place], [place] | | with hyperosmolarity | | | | [address] | | without coma, | | | | [phone] | | without long-term | | | [...] Batista DO - 04/06/2019 1:[address] [facility] Cardiology Cardiology Consult Note Reason for [...] bowel syndrome) Knee pain Lymphedema Myocardial infarction ([facility]) Nausea and vomiting Nocturia Obesity Panic anxiety syndrome Pneumonia Pyoderma gangreosum-LE RA (rheumatoid arthritis) ([facility]) Followed by Dr. Becerra Rheumologist in [place] Reflux esophagitis Restless leg syndrome Urinary [...] 2 times daily. Respiratory Therapy Supplies [facility] Portable oxygen concentrator to provide O2 at [...] file Gets together: Not on file Attends congregation service: Not on file Active member of [...] [place] | | | | | | [address] | | | | | | | [...]
--- OUTSIDE RECORDS SUMMARY | ~2019-04-18 | XMS | Encounter Summary ---
Demographics + + + | Address | [address] | | | [place] [address] | + + + | Home Phone [...] | | | | | [place] [address] | | + + + + + Care Team Providers + +------+ + | Care Mine Car Repairer Name | Role | Phone | + +------+ + PCP | Unavailable | + +------+ + Encounter Details +--------+ + + + + | Date | Type | Department | Care Team | Description | +--------+ + + + + | 12/03/ | Results | | Other, Faculty | | | 2002 | Only | | [phone] | | +--------+ + + + + [...] OF | [address] | [place] [address] | | | PATHOLOGY | [address] | | | + + + + + | [facility] | [address] | [place] [address] | | | PATHOLOGY | [address] | | | + + + + + documented in this encounter Visit Diagnoses Not on filedocumented in this encounter"
--- OUTSIDE RECORDS SUMMARY | ~2019-04-18 | XMS | Encounter Summary ---
Demographics + + + | Address | [address] | | | [place] [address] | + + + | Home Phone [...] | | | | | [place] [address] | | + + + + + Care Team Providers + +------+ + | Care Coupon Manifest Clerk Name | Role | Phone | + +------+ + PCP | Unavailable | + +------+ + Encounter Details +--------+ + + + + | Date | Type | Department | Care Team | Description | +--------+ + + + + | 11/02/ | Respiratory | | Other, Faculty | | | 2006 | Therapy | | [phone] | | +--------+ + + + + [...] | | | Y | Lisa Wahl, RADIO TESTER | | | | + + + [...] [facility] | [address] | [place], [place] | | | DIAGNOSTICS - | [address] | [address] | | | PULMONARY FUNCTION | | | | + + + + + documented in this encounter Visit Diagnoses Not on filedocumented in this encounter"
--- OUTSIDE RECORDS SUMMARY | ~2019-04-18 | XMS | Encounter Summary ---
Demographics + + + | Address | [address] | | | [place] [address] | + + + | Home Phone | | + + + | Preferred Language | Unknown | + + + | Marital Status | Single | + + + | Latter-Day Affiliation | Unknown | + + + [...] | | | | | [place] [address] | | + + + + + | Robson Min | ECON | Unknown | | + + + + + | Isabella Whitehead | ECON | Unknown | | + + + + + Care Team Providers + +------+ + | Care Foreign Broadcast Specialist Name | Role | Phone | [...] | | | Pulmonology | (chronic | [address] | [address] | | | | | obstructive | [address] | [place], | | | | | pulmonary | [place] | [place] [address] | | | | | disease) | [address] | Phone: | | | | | (FORMERLY [facility]) | [place] | [phone] | | | | | Procedures | [address] | Fax: | | | | | [address] | Phone: | [phone] | | | | | [address] [place] | [phone] | | | | | | 11/19/17 | Fax: | | | | | | | [phone] | | +--------+--------+ + + + + Encounter Details +--------+---------+ + + + | Date | Type | Department | Care Team | Description | +--------+---------+ + + + | 11/19/ | Office | [facility] | Navdeep Grande, | Hypoxemia (Primary | | 2018 | Visit | PULMONARY [address] | MD [address] | Dx); Tobacco use | | | | [place], | [place] | disorder; COPD, mild | | | | [place] [address] | [address] | ([facility]); Alveolar | | | | [phone] | | hypoventilation | +--------+---------+ + + [...] instructions provided by your healthcare provider or [employer]. Check the oxygen supply level on the [...] if you have one. Date Last Reviewed: 08/18/201519998267-3137 [employer]. [address] [place] [address], [place] [address]. All righ ts reserved. This information is [...] 50,000 Units by mouth Once a w koi., Disp: , Rfl: fluticasone-salmeterol (ADVAIR DISKUS) 250-50 [...] patient. The Chest CT(s) was performed at [facility]. No evidence of pulmonary emboli. A smal [...] [place] | | | | | | [address] | | | | | | | | +--------+---------+ + + + | 07/26/ | Office | Pulmonology | Navdeep Grande, | | | 2019 | Visit | | MD [address] | | | | | | [place] | | | | | | [address] | | | | | | | [...]
--- OUTSIDE RECORDS SUMMARY | ~2019-04-18 | XMS | Encounter Summary ---
Demographics + + + | Address | [address] | | | [place] [address] | + + + | Home Phone [...] | | | | | [place] [address] | | + + + + + Care Team Providers + +------+ + | Care Block Machine Operator Name | Role | Phone [...]
--- OUTSIDE RECORDS SUMMARY | ~2019-04-18 | XMS | Encounter Summary ---
Demographics + + + | Address | [address] | | | [place] [address] | + + + | Home Phone [...] | | | | | [place] [address] | | + + + + + Care Team Providers + +------+ + | Care Network Relay Tester Name | Role | Phone | + +------+ + PCP | Unavailable | + +------+ + Encounter Details +--------+ + + + + | Date | Type | Department | Care Team | Description | +--------+ + + + + | 10/29/ | Respiratory | | Other, Faculty | | | 2006 | Therapy | | [phone] | | +--------+ + + + + [...] Ambrosio, | | | | | | COAT ROOM ATTENDANT | | | | + + + [...] [facility] | [address] | [place], [place] | | | DIAGNOSTICS - | [address] | [address] | | | PULMONARY FUNCTION | | | | + + + + + documented in this encounter Visit Diagnoses Not on filedocumented in this encounter"
--- OUTSIDE RECORDS SUMMARY | ~2019-04-18 | XMS | Encounter Summary ---
Demographics + + + | Address | [address] | | | [place] [address] | + + + | Home Phone [...] | | | | | [place] [address] | | + + + + + Care Team Providers + +------+ + | Care Manager Transfusion Name | Role | Phone | + [...] DEPARTMENT OF | [address] | [place] [address] | | | PATHOLOGY | [address] | | | + + + + + | [facility] DEPARTMENT OF | [address] | [place] [address] | | | PATHOLOGY | [address] [...] | + + + + + | [facility] | [address] | [place] [address] | | | PATHOLOGY | [address] | | | + + + + + | [facility] | [facility] | [place] [address] | | | PATHOLOGY | [address] | | | + + + + + documented in this encounter Visit Diagnoses Not on filedocumented in this encounter"
--- OUTSIDE RECORDS SUMMARY | ~2019-04-18 | XMS | Encounter Summary ---
Demographics + + + | Address | [address] | | | [place] [address] | + + + | Home Phone [...] | | | | | [place] [address] | | + + + + + | Robson Min | ECON | Unknown | | + + + + + | Isabella Whitehead | ECON | Unknown | | + + + + + Care Team Providers + +------+ + | Care Computer Education Teacher Name | Role | Phone | [...] [address] | | | | | [place] [address] | | | | | | [phone] | | | +--------+ + + + [...] [place] | | | | | | [address] | | | | | | | | +--------+---------+ + + + | 07/26/ | Office | Pulmonology | GrandeNavdeep lopez, | | | 2019 | Visit | | MD Cely GORE | | | | | | [place] | | | | | | [address] | | | | | | | | +--------+---------+ + + + documented as of this encounter Visit Diagnoses Not on filedocumented in this encounter"
--- OUTSIDE RECORDS SUMMARY | ~2019-04-18 | XMS | Encounter Summary ---
Demographics + + + | Address | [address] | | | [place] [address] | + + + | Home Phone | | + + + | Preferred Language | Unknown | + + + | Marital Status | Single | + + + | Gnosticist Affiliation | CHR | + + + | Race | White | + + + | Ethnic Group | Not or | + + + Author + + + | Author | [facility] | + + + | Organization | [facility] | + + + | Address | Unknown | + + + | Phone | Unavailable | + + + Support + + + + + | Name | Relationship | Address | Phone | + + + + + | Scot Johnson | ECON | [address] | | | | | [place] [address] | | + + + + + Care Team Providers + +------+ + | Care Balloon Sander Name | Role | Phone | + [...] | [address] | [address] | | | | | Mailcode: L[address] | [place], [place] | | | | | [facility] | [address] | | | | | [place], [place] | [phone] | | | | | [address] | | | | | | [phone] | | | +--------+ + + + [...] + + + | [facility] | [address] | [place] [address] | | | PATHOLOGY | [address] | | | + + + + + | [facility] | [address] [place] [address] | [place] [address] | | | PATHOLOGY | [address] [...] DEPARTMENT OF | [address] | [place] [address] | | | PATHOLOGY | [address] | | | + + + + + | [facility] DEPARTMENT OF | [address] | [place] [address] | | | PATHOLOGY | [address] [...] [facility] DEPARTMENT OF | [address] | [place] [address] | | | PATHOLOGY | [address] | | | + + + + + | [facility] DEPARTMENT OF | [address] | [place] [address] | | | PATHOLOGY | [address] [...] [facility] DEPARTMENT OF | [address] | [place] [address] | | | PATHOLOGY | [address] | | | + + + + + | [facility] DEPARTMENT OF | [address] | [place] [address] | | | PATHOLOGY | [address] [...] + + + | [facility] | [address] | [place] [address] | | | PATHOLOGY | [address] | | | + + + + + | [facility] | [address] | [place] [address] | | | PATHOLOGY | [address] [...] MPV | 7.6 | 7.4 - 10.4 NE | [facility] | | | | | | DEPARTMENT [...] | [facility] DEPARTMENT OF | [address] | [place] [address] | | | PATHOLOGY | [address] | | | + + + + + | [facility] DEPARTMENT OF | [address] | [place] [address] | | | PATHOLOGY | [address] [...] DEPARTMENT OF | [address] | [place] [address] | | | PATHOLOGY | [address] | | | + + + + + | [facility] DEPARTMENT OF | [address] | [place] [address] | | | PATHOLOGY | [address] [...] [facility] DEPARTMENT OF | [address] | [place] [address] | | | PATHOLOGY | [address] | | | + + + + + | [facility] DEPARTMENT OF | [address] | [place] [address] | | | PATHOLOGY | [address] [...] DEPARTMENT OF | [address] | [place] [address] | | | PATHOLOGY | [address] | | | + + + + + | [facility] DEPARTMENT OF | [address] | [place] [address] | | | PATHOLOGY | [address] | | | + + + + + documented in this encounter Visit Diagnoses Not on filedocumented in this encounter"
--- OUTSIDE RECORDS SUMMARY | ~2019-04-18 | XMS | Encounter Summary ---
Demographics + + + | Address | [address] | | | [place] [address] | + + + | Home Phone [...] | | | | | [place] [address] | | + + + + + Care Team Providers + +------+ + | Care Radiology Asst Name | Role | Phone | + +------+ + PCP | Unavailable | + +------+ + Encounter Details +--------+ + + + + | Date | Type | Department | Care Team | Description | +--------+ + + + + | 11/03/ | Respiratory | | Other, Faculty | | | 2006 | Therapy | | [phone] | | +--------+ + + + + [...] | | | Y | Edwina Edwards, PLATING TANK OPERATOR | | | | + + [...] [facility] | [address] | [place], [place] | | | DIAGNOSTICS - | [address] | [address] | | | PULMONARY FUNCTION | | | | + + + + + documented in this encounter Visit Diagnoses Not on filedocumented in this encounter"
--- OUTSIDE RECORDS SUMMARY | ~2019-04-18 | XMS | Encounter Summary ---
Demographics + + + | Address | [address] | | | [place] [address] | + + + | Home Phone | | + + + | Preferred Language | Unknown | + + + | Marital Status | Single | + + + | Jehovah'S Witness Affiliation | Unknown | + + + [...] | | | | | [place] [address] | | + + + + + | Robson Min | ECON | Unknown | | + + + + + | Isabella Whitehead | ECON | Unknown | | + + + + + Care Team Providers + +------+ + | Care Housekeeper Supervisor Name | Role | Phone | [...] | | | | | disease, | [place], | [place] [address] | | | | | unspecified | [place] | Phone: | | | | | ([facility]) | [address] | [phone] | | | | | Obstructive | Phone: | Fax: | | | | | sleep apnea | [phone] | [phone] | | | | | (adult) | Fax: | | | | | | (pediatric) | [phone] | | | | | | Procedures [...] | (Primary Dx); | | | | [place] [address] [place], | [place], [place] | Alveolar | | | | [place] [address] | [address] | hypoventilation; JESUSITA | | | | [phone] | | and COPD overlap | | [...] find a support program: Free national quitline: 671-KRCQ-HQI (115-076-0699). Hospital quit-smoking programs. [place] [employer]: (415.379.6440). [place] [employer] (542-087-6734). Support at home is important too. Nonsmokers can offer praise and encouragement. If the smo ker in your life finds it hard to quit, encourage them to keep trying. Wpts-evq-plmbxog medicines Nicotine replacement therapymay make quittingeasier. Certain [...] the Air" booklet from the National Cancer [place]: smokefree.gov/sites/defau lt/files/pdf/naglreda-uzp-ize-accessible.pdf Date Last Reviewed: 06/17/201619996909-1222 The [employer]. [address] [place] [address], [place] [address]. All righ ts reserved. This information is [...] with prednisone and doxycycline. Unfortunately while in [facility] at a neurology appointment the patient had a presync opal episode. She also had apparently "run out" of her oxygen. She was subsequently admitt ed to the hospital in [facility]. They have had any acute pulmonary [...] Acid reflux disease Bipolar 1 disorder ([facility]) CHRONIC TENSION HEADACHE Classical migraine without mention of intractable migraine Diabetes mellitus, type 2 ([facility]) Empyema lung ([facility]) 2005 right GI bleeding Hypercholesterolemia Hypertension Hypothyroidism IBS (irritable bowel syndrome) Knee pain Lymphedema Nausea and vomiting Nocturia Obesity Panic anxiety syndrome Pneumonia Pyoderma gangreosum-LE RA (rheumatoid arthritis) ([facility]) Followed by Dr. Becerra Rheumologist in [place] Reflux esophagitis Restless leg syndrome Urinary [...] 50,000 Units by mouth Once a w [place]osh[place]., Disp: , Rfl: LANTUS SOLOSTAR 100 UNIT/ML [...] QUADR W/PRES (PED/ADOL/ADULT) MULTIDOSE 01/27/2017, 02/10/2018 INFLUENZA, L3U5-14, UNSPECIFIED 03/09/2009 INFLUENZA, UNSPECIFIED FORMULATION 04/27/2000, 02/04/2011, [...] Psychiatric: Affect normal. Data: Discharge summary from [facility] in the [facility] references: The patient was subsequently admitted [...] [place] | | | | | | [address] | | | | | | | [...] Grande MD 09/22/2018 | | | 14:54[facility] | | |physiology. Lung volume testing is [...] Grande MD 09/22/2018 14:54 | | |[facility] | | + + + documented in [...]
--- OUTSIDE RECORDS SUMMARY | ~2019-04-18 | XMS | Encounter Summary ---
Demographics + + + | Address | [address] | | | [place] [address] | + + + | Home Phone [...] | | | | | [place] [address] | | + + + + + | Robson Min | ECON | Unknown | | + + + + + | Isabella Whitehead | ECON | Unknown | | + + + + + Care Team Providers + +------+ + | Care Baffle Installer Name | Role | Phone | [...] + + | 08/25/ | Telephone | [facility] [place] | Navdeep Grande, | Results (nocturnal | | 2013 | | PULMONARY [address] | MD [address] | oximetry on room | | | | [place], | [place] | air) | | | | [place] [address] | [address] | | | | | [phone] | | | +--------+ + + + [...] [place] | | | | | | [address] | | | | | | | | +--------+---------+ + + + | 07/26/ | Office | Pulmonology | Navdeep Grande, | | | 2019 | Visit | | MD Cely GORE | | | | | | [place] | | | | | | [address] | | | | | | | | +--------+---------+ + + + documented as of this encounter Visit Diagnoses Not on filedocumented in this encounter"
--- OUTSIDE RECORDS SUMMARY | ~2019-04-18 | XMS | Encounter Summary ---
Demographics + + + | Address | [address] | | | [place] [address] | + + + | Home Phone [...] | | | | | [place] [address] | | + + + + + Care Team Providers + +------+ + | Care Personal Finance Instructor Name | Role | Phone | + +------+ + PCP | Unavailable | + +------+ + Encounter Details +--------+ + + + + | Date | Type | Department | Care Team | Description | +--------+ + + + + | 11/12/ | Transcribed | [facility] at | Dictation, Other | Transcribed | | 1997 | | [facility] [address] | | | | | | [address] | | | | | | Mailcode: OP34 [address] | | | | | | Td Cohen | | | | | | [facility] | | | | | | [place] [address] | | | | | | [phone] | | | +--------+ + + + [...] as of this encounter Progress Notes Interface, Package Clerk In - 05/05/2006 1:04 AM PST [address] [address] or November 12, 1997 HERMAN ELMORE MD [address] [facility] [address] [place] [address] RE:CARLIEN MIN MR#:[id number] Elmore: We saw your patient, Carline Min, for a rheumatoid consultation at the [facility] on November 12, 1997. The patient was [...] Lainez, or myself. Sincerely, Daniel Laurent M.D. Dragline Engineer, Internal Medicine Deyvi Lainez M.D. Dock Supervisor, Rheumatology ECS/AB:reji documented in this encounter Plan of Treatment Not on filedocumented as of this encounter Visit Diagnoses Not on filedocumented in this encounter"
--- OUTSIDE RECORDS SUMMARY | ~2019-04-18 | XMS | Encounter Summary ---
Demographics + + + | Address | [address] | | | [place] [address] | + + + | Home Phone [...] | | | | | [place] [address] | | + + + + + Care Team Providers + +------+ + | Care Conveyor Belt Operator Name | Role | Phone | + +------+ + PCP | Unavailable | + +------+ + Encounter Details +--------+ + + + + | Date | Type | Department | Care Team | Description | +--------+ + + + + | 10/31/ | Respiratory | | Other, Faculty | | | 2006 | Therapy | | [phone] | | +--------+ + + + + [...] Hackett, | | | | | | LINE OPERATOR | | | | + + [...] [facility] | [address] | [place] | | | DIAGNOSTICS - | [address] | [address] | | | PULMONARY FUNCTION | | | | + + + + + documented in this encounter Visit Diagnoses Not on filedocumented in this encounter"
--- OUTSIDE RECORDS SUMMARY | ~2019-04-18 | XMS | Encounter Summary ---
Demographics + + + | Address | [address] | | | [place] [address] | + + + | Home Phone [...] | | | | | [place] [address] | | + + + + + | Robson Min | ECON | Unknown | | + + + + + | Isabella Whitehead | ECON | Unknown | | + + + + + Care Team Providers + +------+ + | Care Sandwich Peddler Name | Role | Phone | + [...] | | | | reflux | [address] | | | | | Abdominal | [address] | [address] | | | | | pain, | [place], [place] | AVE | | | | | generalized | [address] | [place] | | | | | Procedures | Phone: | [address] | | | | | [place] Gastric | [phone] | Phone: | | | | | Emptying | Fax: | [phone] | | | | | | [phone] | Fax: | | | | | | | [phone] | +--------+--------+ + + + + Reason [...] Closed | | Gastroenterol | Diagnoses | [place], | [place], | | | | ogy | Irritable | Bart Bell DO | MD Cecilio | | | | | bowel | [address] | [address] | | | | | syndrome | [address] | [place], | | | | | Other | [place] | [place] [address] | | | | | specified | [address] | Phone: | | | | | gastritis | [place], [place] | [phone] | | | | | with | [address] | Fax: | | | | | hemorrhage | Phone: | [phone] | | | | | Unspecified | [phone] | | | | | | gastritis | Fax: | | | | | | and | [phone] | | | | | | gastroduoden [...] + + | 09/20/ | Office | [facility] | Cecilio Amato MD | Abdominal pain, | | 2013 | Visit | GASTROENTEROLOGY | [address] | generalized (Primary | | | | [address] [facility] | [place] | Dx); Esophageal | | | | [address] [place] | [address] | reflux | | | | [address] | [phone] | | | | | [phone] | | | +--------+---------+ + + + [...] 50 mg by mouth 4 times daily. gzhoiwkdll-yxvymrt-nreilaus (BUTALBITAL COMPOUND/ASA) per tablet One tablet by [...] bleeding Empyema lung ([facility]) 2005 right Knee pain CHRONIC [...] Ramos MD - 0 09/20/2013 12:00 AM [facility] GASTROENTEROLOGY [address] [address] FAX: [phone] OFFICE VISIT CHIEF COMPLAINT: Abdominal pain. HISTORY [...] Cecilio Amato MD / SABIHA JOB #: [id number] signed by Cecilio Amato MD at 09/20/2013 [...] [place] | | | | | | [address] | | | | | | | | +--------+---------+ + + + | 07/26/ | Office | Pulmonology | Navdeep Grande, | | | 2019 | Visit | | [address] | | | | | | [place] | | | | | | [address] | | | | | | | [...]
--- OUTSIDE RECORDS SUMMARY | ~2019-04-18 | XMS | Encounter Summary ---
Demographics + + + | Address | [address] | | | [place] [address] | + + + | Home Phone [...] Providers + +------+ + | Care Supervisor Filtration Name | Role | Phone | + [...] | | | | | | [place] [address] | | | | | | [phone] | | | +--------+ + + + [...] [place] | | | | | | [address] | | | | | | | | +--------+---------+ + + + | 07/26/ | Office | Pulmonology | Navdeep Grande, | | | 2019 | Visit | | MD Cely GORE | | | | | | [place] | | | | | | [address] | | | | | | | | +--------+---------+ + + + documented as of this encounter Visit Diagnoses Not on filedocumented in this encounter"
--- OUTSIDE RECORDS SUMMARY | ~2019-04-18 | XMS | Encounter Summary ---
Demographics + + + | Address | [address] | | | [place] [address] | + + + | Home Phone | | + + + | Preferred Language | Unknown | + + + | Marital Status | Single | + + + | Pentecostalism Affiliation | Unknown | + + + | Race | Unknown | + + + | Ethnic Group | Unknown | + + + Author + + + | Author | [facility] | | | and [place] | + + + | Organization | [facility] | | | [...] | | | | | [place] [address] | | + + + + + | Robson Min | ECON | Unknown | | + + + + + | Isabella Whitehead | ECON | Unknown | | + + + + + Care Team Providers + +------+ + | Care Data Entry Analyst Name | Role | Phone | [...] | | | disease, | [place], | [place] [address] | | | | | unspecified | [place] | Phone: | | | | | (HCC) | [address] | [phone] | | | | | Obstructive | Phone: | Fax: | | | | | sleep apnea | [phone] | [phone] | | | | | (adult) | Fax: | | | | | | (pediatric) | [phone] | | | | | | Procedures [...] + + | 07/18/ | Office | [facility] | Navdeep Grande, | COPD exacerbation | | 2019 | Visit | PULMONARY [address] | MD [address] | ([facility]) (Primary Dx); | | | | [place], | [place], [place] | COPD, mild ([facility]); | | | | [place] [address] | [address] | Alveolar | | | | [phone] | | hypoventilation; | | | | [...] worse Dizziness or weakness Date Last Reviewed: 12/19/201519990204-7123 The [employer]. [address] [place] [address]. All righ ts reserved. This information is [...] Min reports [address] [facility] [address] [facility] in [facility]. From the patient's description it so unds [...] Ms. Min apparently was evaluated by her guideman, Dr. Becerra, within the last several weeks in [facility]. No co ncerns were identified regarding [...] 50,000 Units by mouth Once a w [place]., Disp: , Rfl: fluticasone-salmeterol (ADVAIR DISKUS) 250-50 [...] have requested to Ms. Min that her non-[place] providers forward copies of their assessments for [...] [place] | | | | | | [address] | | | | | | | | +--------+---------+ + + + | 07/26/ | Office | Pulmonology | Navdeep Grande, | | | 2019 | Visit | | [address] | | | | | | [place] | | | | | | [address] | | | | | | | [...]
--- OUTSIDE RECORDS SUMMARY | ~2019-04-18 | XMS | Encounter Summary ---
Demographics + + + | Address | [address] | | | [place] [address] | + + + | Home Phone [...] | | | | | [place] [address] | | + + + + + Care Team Providers + +------+ + | Care Glassware Finisher Name | Role | Phone | + +------+ + PCP | Unavailable | + +------+ + Encounter Details +--------+ + + + + | Date | Type | Department | Care Team | Description | +--------+ + + + + | 10/31/ | Respiratory | | Other, Faculty | | | 2006 | Therapy | | [phone] | | +--------+ + + + + [...] Cabrera, | | | | | | MEDIA MARKETING MANAGER | | | | + + [...] [facility] | [address] | [place] | | | DIAGNOSTICS - | [address] | [address] | | | PULMONARY FUNCTION | | | | + + + + + documented in this encounter Visit Diagnoses Not on filedocumented in this encounter"
--- OUTSIDE RECORDS SUMMARY | ~2019-04-18 | XMS | Encounter Summary ---
Demographics + + + | Address | [address] | | | [place] [address] | + + + | Home Phone [...] | | | | | [place] [address] | | + + + + + | Robson Min | ECON | Unknown | | + + + + + | Isabella Whitehead | ECON | Unknown | | + + + + + Care Team Providers + +------+ + | Care Branch Chief Name | Role | Phone | [...] [address] | | | | | [place], | [place] | | | | | [place] [address] | [address] | | | | | [phone] | | | +--------+ + + + [...] [place] | | | | | | [address] | | | | | | | | +--------+---------+ + + + | 07/26/ | Office | Pulmonology | Navdeep Grande, | | | 2019 | Visit | | MD Cely GORE | | | | | | [place] | | | | | | [id number] | | | | | | | | +--------+---------+ + + + documented as of this encounter Visit Diagnoses Not on filedocumented in this encounter"
--- OUTSIDE RECORDS SUMMARY | ~2019-04-18 | XMS | Encounter Summary ---
Demographics + + + | Address | [address] | | | [place] [address] | + + + | Home Phone [...] | | | | | [place] [address] | | + + + + + | Robson Min | ECON | Unknown | | + + + + + | Isabella Whitehead | ECON | Unknown | | + + + + + Care Team Providers + +------+ + | Care Centrifugal Wax Molder Name | Role | Phone | [...] + + | 09/21/ | Telephone | [facility] | Cecilio Amato MD | Other | | 2013 | | GASTROENTEROLOGY | [address] | (gastroparesis) | | | | [address] [facility] | [place], [place] | | | | | [address] [place], [place] | [address] | | | | | [address] | [phone] | | | | | [phone] | | | +--------+ + + + [...] [place] | | | | | | [id number] | | | | | | | | +--------+---------+ + + + | 07/26/ | Office | Pulmonology | Navdeep Grande, | | | 2019 | Visit | | MD Cely GORE | | | | | | [place] | | | | | | [address] | | | | | | | | +--------+---------+ + + + documented as of this encounter Visit Diagnoses Not on filedocumented in this encounter"
--- OUTSIDE RECORDS SUMMARY | ~2019-04-18 | XMS | Encounter Summary ---
Demographics + + + | Address | [address] | | | [place] [address] | + + + | Home Phone [...] | | | | | [place] [address] | | + + + + + Care Team Providers + +------+ + | Care Drawer In Jacquard Loom Name | Role | Phone | + [...] Clinic | | | | | | [facility], | | | | | | [place] [address] | | | | | | [phone] | | | +--------+ + + + [...] | + + + + + | [facility] | [address] | [place] [address] | | | LABORATORY | | | | + + + + + documented in this encounter Visit Diagnoses Not on filedocumented in this encounter"
--- OUTSIDE RECORDS SUMMARY | ~2019-04-18 | XMS | Encounter Summary ---
Demographics + + + | Address | [address] | | | [place] [address] | + + + | Home Phone [...] | | | | | [place] [address] | | + + + + + | Robson Min | ECON | Unknown | | + + + + + | Isabella Whitehead | ECON | Unknown | | + + + + + Care Team Providers + +------+ + | Care Director Geophysical Laboratory Name | Role | Phone | + +------+ + PCP | Unavailable | + +------+ + Encounter Details +--------+ + + + + | Date | Type | Department | Care Team | Description | +--------+ + + + + | 12/13/ | [facility] | [facility] | Navdeep Grande, | | | 2011 | Encounter | MED CTR XRAY [address] | MD [address] | | | | | [place] | [place] | | | | | [place] [address] | [address] | | | | | [phone] | | | +--------+ + + + [...] | 0 | 10/08/19 | | | hdinakntji-cimhpek-t | every 6 hours as | | [...] [place] | | | | | | [address] | | | | | | | | +--------+---------+ + + + | 07/26/ | Office | Pulmonology | Navdeep Grande, | | | 2019 | Visit | | [address] | | | | | | [place] | | | | | | [address] | | | | | | | [...] Performed At | + + + | [facility] Diagnostic Imaging Department | [facility] | | [address] [facility] | [facility] | | NONCONTRAST CT CHEST | DIAG IMG | | CLINICAL HISTORY: FOLLOW UP CAVITARY LESIONS RIGHT LUNG. | | | TECHNIQUE: Axial images are obtained from the thoracic inlet through | | | upper abdomen without the use of contrast. COMPARISON: August | | | 2011 from [place], [place]. October 2005 from [facility] | | | [facility] [place]. FINDINGS: Thick-walled cavitary lesions | | | [...] | | 16:53 Transcribed Date/Time: 12/14/2011 17:08 Surgical Instrument Technician: | | | <Electronically Signed by Ace Avery MD> 12/14/11 | | | 1754 | | + + + + + | Procedure Note | + + | Demario, Rad Conversion - 05/26/2013 5:[address] [facility] | | Diagnostic Imaging Department | | [address] [facility] | | | | | | | | NONCONTRAST CT CHEST | | | | CLINICAL HISTORY: FOLLOW UP CAVITARY LESIONS RIGHT LUNG. | | | | TECHNIQUE: Axial images are obtained from the thoracic inlet through upper | | abdomen without the use of contrast. | | | | COMPARISON: August 2011 from [place], [place]. October 2005 from [facility] | [facility]. | | | | FINDINGS: Thick-walled cavitary [...] | Transcribed Date/Time: 12/14/2011 17:08 | | Surgical Instrument Technician: | | <Electronically Signed by Ace Avery MD> 12/14/11 1754 | + + + +---------+ + + | Performing | Address | City/State/Zipcode | Phone Number | | Organization | | | | + +---------+ + + | [place] | | | | | [facility] | | | | + +---------+ + + documented in this encounter Visit Diagnoses Not on filedocumented in this encounter"
--- OUTSIDE RECORDS SUMMARY | ~2019-04-18 | XMS | Encounter Summary ---
Demographics + + + | Address | [address] | | | [place] [address] | + + + | Home Phone [...] | | | | | [place] [address] | | + + + + + | Robson Min | ECON | Unknown | | + + + + + | Isabella Whitehead | ECON | Unknown | | + + + + + Care Team Providers + +------+ + | Care Coordinator Mining Products Name | Role | Phone | + [...] + | 08/15/ | Telephone | [facility] | Tariq, | Other (Call Back) | | 2019 | | [facility]UR[facility] | [facility] [address] | | | | | CLIN[address] | [address] [facility], | | | | | [address] [place], | [place] [address] | | | | | [place] [address] | [phone] | | | | | [phone] | | | +--------+ + + + [...] [place] | | | | | | [id number] | | | | | | | | +--------+---------+ + + + | 07/26/ | Office | Pulmonology | Navdeep Grande, | | | 2019 | Visit | | [address] | | | | | | [place] | | | | | | [address] | | | | | | | | +--------+---------+ + + + documented as of this encounter Visit Diagnoses Not on filedocumented in this encounter"
--- OUTSIDE RECORDS SUMMARY | ~2019-04-18 | XMS | Encounter Summary ---
Demographics + + + | Address | [address] | | | [place] [address] | + + + | Home Phone | | + + + | Preferred Language | Unknown | + + + | Marital Status | Single | + + + | Sabianist Affiliation | CHR | + + + [...] | | | | | [place] [address] | | + + + + + Care Team Providers + +------+ + | Care Blood Bank Order Control Clerk Name | Role | Phone | + +------+ + PCP | Unavailable | + +------+ + Encounter Details +--------+ + + + + | Date | Type | Department | Care Team | Description | +--------+ + + + + | 10/29/ | Respiratory | | Other, Faculty | | | 2006 | Therapy | | [phone] | | +--------+ + + + + [...] | | | | | | Margi, LEHR CUTTER | | | | + + [...] [facility] | [address] | [facility] [place] | | | DIAGNOSTICS - | [address] | [address] | | | PULMONARY FUNCTION | | | | + + + + + documented in this encounter Visit Diagnoses Not on filedocumented in this encounter"
--- OUTSIDE RECORDS SUMMARY | ~2019-04-18 | XMS | Encounter Summary ---
Demographics + + + | Address | [address] | | | [place] [address] | + + + | Home Phone [...] | | | | | [place] [address] | | + + + + + [...] + + | 09/22/ | Hospital | [facility] | Neno Walker | Hypoventilation | | 2019 | Encounter | MED CTR PULMONARY | MD Srinivas [address] | | | | | FUNCTION [address] [place] | | | | | [place], | [place] [address] | | | | | [place] [address] | [phone] | | | | | [phone] | | | +--------+ + + + [...] [place] | | | | | | [address] | | | | | | | | +--------+---------+ + + + | 07/26/ | Office | Pulmonology | Navdeep Grande, | | | 2019 | Visit | | MD [address] | | | | | | [place] | | | | | | [address] | | | | | | | [...] [address] | [place] | [phone] | | [facility] | | [address] | | | - LABORATORY | | | | + + + + + documented in this encounter Visit Diagnoses + + | Diagnosis | + + | Hypoventilation Other dyspnea and respiratory abnormality | + + documented in this encounter"
--- OUTSIDE RECORDS SUMMARY | ~2019-04-18 | XMS | Encounter Summary ---
Demographics + + + | Address | [address] | | | [place] [address] | + + + | Home Phone [...] | | | | | [place] [address] | | + + + + + Care Team Providers + +------+ + | Care Staff Nurse Anesthetist Name | Role | Phone | + +------+ + PCP | Unavailable | + +------+ + Encounter Details +--------+ + + + + | Date | Type | Department | Care Team | Description | +--------+ + + + + | 11/02/ | Respiratory | | Other, Faculty | | | 2006 | Therapy | | [phone] | | +--------+ + + + + [...] [facility] | [address] | [place], [place] | | | DIAGNOSTICS - | [address] | [address] | | | PULMONARY FUNCTION | | | | + + + + + documented in this encounter Visit Diagnoses Not on filedocumented in this encounter"
--- OUTSIDE RECORDS SUMMARY | ~2019-04-18 | XMS | Encounter Summary ---
Demographics + + + | Address | [address] | | | [place] [address] | + + + | Home Phone [...] | | | | | [place] [address] | | + + + + + | Robson Min | ECON | Unknown | | + + + + + | Isabella Whitehead | ECON | Unknown | | + + + + + Care Team Providers + +------+ + | Care Wig Comber Name | Role | Phone | + +------+ + | Bart Ba DO | PCP | | + +------+ + Encounter Details +--------+ + + + + | Date | Type | Department | Care Team | Description | +--------+ + + + + | 04/21/ | Hospital | [facility] GENER[facility] IP | Conversion | Pain | | 2013 | Encounter | CONVERSION DEP [address] | Transaction, | | | | | [place] [address] | Provider Unknown | | | | | [place], [place] | [phone] | | | | | [address] | | | | | | [phone] | | | +--------+ + + + [...] | 0 | 10/08/19 | | | lgsngtmwue-qumufbi-r | every 6 hours as | | [...] [place] | | | | | | [address] | | | | | | | | +--------+---------+ + + + | 07/26/ | Office | Pulmonology | Navdeep Grande, | | | 2019 | Visit | | [address] | | | | | | [place] | | | | | | [address] | | | | | | | [...]
--- OUTSIDE RECORDS SUMMARY | ~2019-04-18 | XMS | Encounter Summary ---
Demographics + + + | Address | [address] | | | [place] [address] | + + + | Home Phone [...] | | | | | [place] [address] | | + + + + + | Robson Min | ECON | Unknown | | + + + + + | Isabella Whitehead | ECON | Unknown | | + + + + + Care Team Providers + +------+ + | Care Baker Bread Name | Role | Phone | + +------+ + PCP | Unavailable | + +------+ + Encounter Details +--------+ + + + + | Date | Type | Department | Care Team | Description | +--------+ + + + + | 04/06/ | Hospital | [facility] | | | | 2000 | Encounter | MED [facility] SLEEP | | | | | | CENTER [address] | | | | | | [place] | | | | | | [address] | | | | | | [phone] | | | +--------+ + + + [...] [place] | | | | | | [address] | | | | | | | | +--------+---------+ + + + | 07/26/ | Office | Pulmonology | Navdeep Grande, | | | 2019 | Visit | | MD Cely GORE | | | | | | [place] | | | | | | [address] | | | | | | | | +--------+---------+ + + + documented as of this encounter Visit Diagnoses Not on filedocumented in this encounter"
--- OUTSIDE RECORDS SUMMARY | ~2019-04-18 | XMS | Encounter Summary ---
Demographics + + + | Address | [address] | | | [place] [address] | + + + | Home Phone [...] | | | | | [place] [address] | | + + + + + | Robson Min | ECON | Unknown | | + + + + + | Isabella Whitehead | ECON | Unknown | | + + + + + Care Team Providers + +------+ + | Care Driver Education Instructor Name | Role | Phone [...] Zhou PEARSON | | | | | [phone] | [place] [address] | | +--------+ + + + + [...] [place] | | | | | | [address] | | | | | | | | +--------+---------+ + + + | 07/26/ | Office | Pulmonology | Navdeep Grande, | | | 2019 | Visit | | [address] | | | | | | [place] | | | | | | [id number] | | | | | | | [...]
--- OUTSIDE RECORDS SUMMARY | ~2019-04-18 | XMS | Encounter Summary ---
Demographics + + + | Address | [address] | | | [place] [address] | + + + | Home Phone [...] | | | | | [place] [address] | | + + + + + Care Team Providers + +------+ + | Care Primary Products Inspectors Name | Role | Phone | + +------+ + | Bart Ba DO | PCP | | + +------+ + Encounter Details +--------+ + + + + | Date | Type | Department | Care Team | Description | +--------+ + + + + | 03/28/ | Abstract | Neurology at | Unknown . | | | 2018 | | [facility] & | | | | | | Healing [address] | | | | | | Aleks Hanna Mailcode: | | | | | | [facility] | | | | | | Health and Healing, | | | | | | | | | | | | [place], [place] | | | | | | [address] | | | | | | [phone] | | | +--------+ + + + [...]
--- OUTSIDE RECORDS SUMMARY | ~2019-04-18 | XMS | Encounter Summary ---
Demographics + + + | Address | [address] | | | [place] [address] | + + + | Home Phone | | + + + | Preferred Language | Unknown | + + + | Marital Status | Single | + + + | Congregational Affiliation | Unknown | + + + | Race | Unknown | + + + | Ethnic Group | Unknown | + + + Author + + + | Author | [facility] | | | and [place] | + + + | Organization | [facility] | | | [...] | | | | | [place] [address] | | + + + + + | Robson Min | ECON | Unknown | | + + + + + | Isabella Whitehead | ECON | Unknown | | + + + + + Care Team Providers + +------+ + | Care Security Assurance Specialist Name | Role | Phone | [...] | | | Pulmonology | obstructive | [address] | [address] | | | | | pulmonary | [address] | [place], | | | | | disease, | [place] | [place] [address] | | | | | unspecified | 3-106 | Phone: | | | | | ([facility]) | [place] | [phone] | | | | | Procedures | [address] | Fax: | | | | | F/U | Phone: | [phone] | | | | | | [phone] | | | | | | | Fax: | | | | | | | [phone] | | +--------+--------+ + + + + Encounter Details +--------+---------+ + + + | Date | Type | Department | Care Team | Description | +--------+---------+ + + + | 05/26/ | Office | [facility] | Navdeep [place], | COPD, mild (HCC) | | 2017 | Visit | PULMONARY [address] | MD [address] | (Primary Dx); | | | | [place], | [place], [place] | Alveolar | | | | [place] [address] | [address] | hypoventilation | | | | [phone] | | | +--------+---------+ + + + [...] quit within a month, and do it. [place] to your quit plan Talk to your [...] Track your triggers What gives you that U-eeev-g-cigarette feeling? List all the situations that make [...] wants to stop smoking. Date Last Reviewed: 10/18/201519998082-7129 [employer]. [address] [place] [address]. All righ ts reserved. This information is [...] pain Diabetes mellitus, type 2 ([facility]) Vitamin D deficiency Hypercholesterolemia Hypothyroidism Panic anxiety syndrome IBS (irritable bowel syndrome) Restless leg syndrome Urinary hesitancy Lumbago Nocturia Pyoderma gangreosum-LE Bipolar 1 disorder ([facility]) Hypertension Lymphedema Nausea and vomiting Reflux esophagitis GI bleeding Empyema lung ([facility]) 2005 right Knee pain CHRONIC TENSION [...] mouth 2 times daily., Disp: , Rfl: rfffpszryi-rlkvngw-zcgswjsw (BUTALBITAL COMPOUND/ASA) per tablet, One tablet by [...] 50,000 Units by mouth Once a w lower brule., Disp: , Rfl: fluticasone-salmeterol (ADVAIR HFA) 45-21 [...] [place]HEL[place] | | | | | | [address] | | | | | | | | +--------+---------+ + + + | 07/26/ | Office | Pulmonology | Navdeep Grande, | | | 2019 | Visit | | MD Cely GORE | | | | | | [place] | | | | | | [address] | | | | | | | | +--------+---------+ + + + documented as of this encounter Visit Diagnoses + + | Diagnosis | + + | COPD, mild (HCC) - Primary Chronic airway obstruction, not elsewhere classified | + + | Alveolar hypoventilation Other dyspnea and respiratory abnormality | + + documented in this encounter
--- OUTSIDE RECORDS SUMMARY | ~2019-04-18 | XMS | Encounter Summary ---
Demographics + + + | Address | [address] | | | [place] [address] | + + + | Home Phone [...] | | | | | [place] [address] | | + + + + + Care Team Providers + +------+ + | Care Putter In Name | Role | Phone | + +------+ + PCP | Unavailable | + +------+ + Encounter Details +--------+ + + + + | Date | Type | Department | Care Team | Description | +--------+ + + + + | 05/15/ | Results | | Other, Faculty | | | 2000 | Only | | [phone] | | +--------+ + + + + [...] CLIA certified | | | lab at [facility]. The patient will not be charged. Reviewed by Jaan | | | Mariola, Ph.D. | | + + + + + + + + | Performing | Address | City/State/Zipcode | Phone Number | | Organization | | | | + + + + + | [facility] DEPARTMENT OF | [address] [place] [address] | [place] [address] | | | PATHOLOGY | [address] | | | + + + + + | [facility] DEPARTMENT OF | [address] | [place] [address] | | | PATHOLOGY | [address] | | | + + + + + documented in this encounter Visit Diagnoses Not on filedocumented in this encounter"
--- OUTSIDE RECORDS SUMMARY | ~2019-04-18 | XMS | Clinical Summary ---
Demographics + + + | Address | [address] | | | [place] [address] | + + + | Home Phone [...] | | | | | [place] [address] | | + + + + + | Robson Min | ECON | Unknown | | + + + + + | Isabella Whitehead | ECON | Unknown | | + + + + + Care Team Providers + +------+ + | Care Cloth Shrinking Supervisor Name | Role | Phone | [...] | | Sees Dr. Santana Becerra- in [place] | | | | IMO Problem List [...] | + + + + | INFLUENZA, [id number], | 03/09/2009 | | | UNSPECIFIED | [...] [place]HEL[place] | | | | | | [address] | | | | | | | | +--------+---------+ + + + | 07/26/ | Office | Pulmonology | Navdeep Grande, | | | 2019 | Visit | | [address] | | | | | | [place] | | | | | | [address] | | | | | | | [...] | | Sincerely, Jimbo Samayoa M.D. Neurologist [phone] | | | Electronically signed | | [...] | [employer] | MODA | [id number] | 10/18/19 | [phone] | | Medica | | MEDICAID HMO | HEALTH | | 14-Pre | 1 | | id | | | MDCD | | sent | | | | | | [place] | | | | | | + +--------+ +--------+ +---------+--------+ | [employer] | MODA | [id number] | | [phone] | | Medica | | MEDICAID HMO | HEALTH | | 018-Pr | 1 | | id | | | MDCD | | esent | | | | | | [place] | | | | | | + +--------+ +--------+ +---------+--------+ | [employer] | MODA | [id number] | | [phone] | | Medica | | MEDICAID HMO [...] kristy | | | 5 (Home) | [address] | + +--------+ +--------+ + + | Carline Min | Person | Self | [birth year] | [address] | | | al/Fam | | 1970 | [phone] | [place], [place] | | | kristy | | | 5 (Home) | [address] | + +--------+ +--------+ + + | Carline Min | Person | Self | [birth year] | [address] | | | al/Fam | | 1970 | [phone] | [place], [place] | | | kristy | | | 5 (Home) | [address] | + +--------+ +--------+ + + Advance Directives + + + + + | Type | Date Recorded | Patient | Explanation | | | | Cotton Broker | | + + + + + | Power of | | | | | Training And Development Rep | | | | + + + [...]
--- OUTSIDE RECORDS SUMMARY | ~2019-04-18 | XMS | Encounter Summary ---
Demographics + + + | Address | [address] | | | [place] [address] | + + + | Home Phone [...] | | | | | [place] [address] | | + + + + + Care Team Providers + +------+ + | Care Meter And Regulator Shop Supervisor Name | Role | Phone | + +------+ + PCP | Unavailable | + +------+ + Encounter Details +--------+ + + + + | Date | Type | Department | Care Team | Description | +--------+ + + + + | 10/28/ | Respiratory | | Other, Faculty | | | 2006 | Therapy | | [phone] | | +--------+ + + + + [...] [facility] | [address] | [place], [place] | | | DIAGNOSTICS - | [address] | [address] | | | PULMONARY FUNCTION | | | | + + + + + documented in this encounter Visit Diagnoses Not on filedocumented in this encounter"
--- OUTSIDE RECORDS SUMMARY | ~2019-04-18 | XMS | Encounter Summary ---
Demographics + + + | Address | [address] | | | [place] [address] | + + + | Home Phone [...] | | | | | [place] [address] | | + + + + + | Robson Min | ECON | Unknown | | + + + + + | Isabella Whitehead | ECON | Unknown | | + + + + + Care Team Providers + +------+ + | Care Road Cleaner Name | Role | Phone | [...] | | | | | disease, | [place], | [place] [address] | | | | | unspecified | [place] | Phone: | | | | | ([facility]) | [address] | [phone] | | | | | Obstructive | Phone: | Fax: | | | | | sleep apnea | [phone] | [phone] | | | | | (adult) | Fax: | | | | | | (pediatric) | [phone] | | | | | | Procedures [...] + + | 09/22/ | Office | [facility] [place] | Navdeep [place], | Alveolar | | 2019 | Visit | PULMONARY [address] | MD [address] | hypoventilation | | | | [place], | [place], [place] | (Primary Dx); COPD, | | | | [place] [address] | [address] | moderate (HCC); | | | | [phone] | | Hypoxemia; COPD, | | | [...] information carefully each time. Talk to your egg and spice mixer regarding the use of this medicine in children. Special care may be needed. What side effects may I notice from receiving this medicine? Side effects that you should report to your doctor or health rn complex care as soon as p ossible: allergic reactions like skin rash, itching or hives, swelling of the face, lips, or tong ue anxious breathing problems suicidal thoughts or other mood changes trouble sleeping weight loss Side effects that usually do not require medical attention (report to your doctor or health rn complex care if they continue or are bothersome): back [...] migraine Diabetes mellitus, type 2 ([facility]) Empyema lung ([facility]) 2006 right GI bleeding Hypercholesterolemia Hypertension Hypothyroidism IBS (irritable bowel syndrome) Knee pain Lymphedema Nausea and vomiting Nocturia Obesity Panic anxiety syndrome Pneumonia Pyoderma gangreosum-LE RA (rheumatoid arthritis) ([facility]) Followed by Dr. Becerra Rheumologist in [place] Reflux esophagitis Restless leg syndrome [...] 50,000 Units by mouth Once a w little shell tribe., Disp: , Rfl: fluticasone-salmeterol (ADVAIR HFA) 115-21 [...] daily., Disp: , Rfl: Respiratory Therapy Supplies [facility], Portable oxygen concentrator to provide O2 at [...] QUADR W/PRES (PED/ADOL/ADULT) MULTIDOSE 01/27/2017, 02/10/2018 INFLUENZA, [id number], UNSPECIFIED 03/09/2009 INFLUENZA, UNSPECIFIED FORMULATION 04/27/2000, 02/04/2011, [...] pack of cigarettes a day. Her toba account support associate is now down to half a pack [...] [place] | | | | | | [address] | | | | | | | | +--------+---------+ + + + | 07/26/ | Office | Pulmonology | Navdeep Grande, | | | 2019 | Visit | | MD Cely GORE | | | | | | [place] | | | | | | [address] | | | | | | | [...]
--- OUTSIDE RECORDS SUMMARY | ~2019-04-18 | XMS | Encounter Summary ---
Demographics + + + | Address | [address] | | | [place] [address] | + + + | Home Phone [...] | | | | | [place] [address] | | + + + + + Care Team Providers + +------+ + | Care Rn Forensic Name | Role | Phone | + [...] | [address] | [address] | | | | | Mailcode: L[address] | [place], [place] | | | | | [facility] | [address] | | | | | [place], [place] | [phone] | | | | | [address] | | | | | | [phone] | | | +--------+ + + + [...] | + + + + + | [facility] | [address] | [place] [address] | | | PATHOLOGY | [address] | | | + + + + + | [facility] | [address] [place] [address] | [place] [address] | | | PATHOLOGY | [address] [...] DEPARTMENT OF | [address] | [place] [address] | | | PATHOLOGY | [address] | | | + + + + + | [facility] DEPARTMENT OF | [address] | [place] [address] | | | PATHOLOGY | [address] [...] | + + + + + | [facility] DEPARTMENT OF | [address] | [place] [address] | | | PATHOLOGY | [address] | | | + + + + + | [facility] DEPARTMENT OF | [address] | [place] [address] | | | PATHOLOGY | [address] [...] | + + + + + | [facility] DEPARTMENT OF | [address] | [place] [address] | | | PATHOLOGY | [address] | | | + + + + + | [facility] DEPARTMENT OF | [address] | [place] [address] | | | PATHOLOGY | [address] [...] | + + + + + | [facility] | [address] | [place] [address] | | | PATHOLOGY | [address] | | | + + + + + | [facility] | [address] | [place] [address] | | | PATHOLOGY | [address] [...] MPV | 7.6 | 7.4 - 10.4 [place] | [facility] | | | | | | DEPARTMENT [...] | + + + + + | [facility] DEPARTMENT OF | [address] | [place] [address] | | | PATHOLOGY | [address] | | | + + + + + | [facility] DEPARTMENT OF | [address] | [place] [address] | | | PATHOLOGY | [address] [...] DEPARTMENT OF | [address] | [place] [address] | | | PATHOLOGY | [address] | | | + + + + + | [facility] DEPARTMENT OF | [address] | [place] [address] | | | PATHOLOGY | [address] [...] | + + + + + | [facility] DEPARTMENT OF | [address] | [place] [address] | | | PATHOLOGY | [address] | | | + + + + + | [facility] DEPARTMENT OF | [address] | [place] [address] | | | PATHOLOGY | [address] [...] DEPARTMENT OF | [address] | [place] [address] | | | PATHOLOGY | [address] | | | + + + + + | [facility] DEPARTMENT OF | [address] | [place] [address] | | | PATHOLOGY | [address] | | | + + + + + documented in this encounter Visit Diagnoses Not on filedocumented in this encounter"
--- OUTSIDE RECORDS SUMMARY | ~2019-04-18 | XMS | Encounter Summary ---
Demographics + + + | Address | [address] | | | [place] [address] | + + + | Home Phone [...] | | | | | [place] [address] | | + + + + + | Robson Min | ECON | Unknown | | + + + + + | Isabella Whitehead | ECON | Unknown | | + + + + + Care Team Providers + +------+ + | Care Electrician Front Name | Role | Phone | + [...] Zhou PEARSON | | | | | [phone] | [place] [address] | | +--------+ + + + + [...] [place]HEL[place] | | | | | | [address] | | | | | | | | +--------+---------+ + + + | 07/26/ | Office | Pulmonology | Navdeep Grande, | | | 2019 | Visit | | [address] | | | | | | [place] | | | | | | [address] | | | | | | | [...]
--- OUTSIDE RECORDS SUMMARY | ~2019-04-18 | XMS | Encounter Summary ---
Demographics + + + | Address | [address] | | | [place] [address] | + + + | Home Phone [...] | | | | | [place] [address] | | + + + + + Care Team Providers + +------+ + | Care Water Technician Name | Role | Phone | + +------+ + PCP | Unavailable | + +------+ + Encounter Details +--------+ + + + + | Date | Type | Department | Care Team | Description | +--------+ + + + + | 10/22/ | Respiratory | | Other, Faculty | | | 2006 | Therapy | | [phone] | | +--------+ + + + + [...] | | | | | Y | PET WALKER | | | | + + + [...] [facility] | [address] | [place], [place] | | | DIAGNOSTICS - | [address] | [address] | | | PULMONARY FUNCTION | | | | + + + + + documented in this encounter Visit Diagnoses Not on filedocumented in this encounter"
--- OUTSIDE RECORDS SUMMARY | ~2019-04-18 | XMS | Encounter Summary ---
Demographics + + + | Address | [address] | | | [place] [address] | + + + | Home Phone [...] | | | | | [place] [address] | | + + + + + Care Team Providers + +------+ + | Care Partnership Manager Name | Role | Phone | + +------+ + PCP | Unavailable | + +------+ + Encounter Details +--------+ + + + + | Date | Type | Department | Care Team | Description | +--------+ + + + + | 10/23/ | Respiratory | | Other, Faculty | | | 2006 | Therapy | | [phone] | | +--------+ + + + + [...] [facility] | [address] | [place], [place] | | | DIAGNOSTICS - | [address] | [address] | | | PULMONARY FUNCTION | | | | + + + + + documented in this encounter Visit Diagnoses Not on filedocumented in this encounter"
--- OUTSIDE RECORDS SUMMARY | ~2019-04-18 | XMS | Encounter Summary ---
Demographics + + + | Address | [address] | | | [place] [address] | + + + | Home Phone [...] | | | | | [place] [address] | | + + + + + | Robson Min | ECON | Unknown | | + + + + + | Isabella Whitehead | ECON | Unknown | | + + + + + Care Team Providers + +------+ + | Care Front Desk Administrator Name | Role | Phone | [...] (Primary Dx) | | | | [place] [address] | | | | | | [phone] | | | +--------+ + + + [...] [place] | | | | | | [address] | | | | | | | | +--------+---------+ + + + | 07/26/ | Office | Pulmonology | Navdeep [place], | | | 2019 | Visit | | MD [address] | | | | | | [place] | | | | | | [address] | | | | | | | [...] | | Sincerely, Jimbo Samayoa M.D. Neurologist [phone] | | | Electronically signed | | + + + documented in this encounter Visit Diagnoses + + | Diagnosis | + + | Intractable migraine with aura without status migrainosus - Primary Migraine with | | aura, with intractable migraine, so stated, without mention of status migrainosus | + + documented in this encounter"
--- OUTSIDE RECORDS SUMMARY | ~2019-04-18 | XMS | Encounter Summary ---
Demographics + + + | Address | [address] | | | [place] [address] | + + + | Home Phone [...] | | | | | [place] [address] | | + + + + + Care Team Providers + +------+ + | Care Car Attendant Name | Role | Phone | [...] | | | | | [address] [place], | | | | | | [place] [address] | | | | | | [phone] | | | | | | | [...] | + + + + + | [facility] | [facility] [address] | [place] [address] | | | PATHOLOGY | [address] | | | + + + + + | [facility] DEPARTMENT OF | [facility] [address] | [place] [address] | | | PATHOLOGY | [address] [...] | 8.9 | 8.5 - 10.5 | [facility] | | | PLASMA | | [...] | + + + + + | [facility] DEPARTMENT OF | [address] | [place] [address] | | | PATHOLOGY | [address] | | | + + + + + | [facility] DEPARTMENT OF | [address] | [place] [address] | | | PATHOLOGY | [address] | | | + + + + + documented in this encounter Visit Diagnoses Not on filedocumented in this encounter"
--- OUTSIDE RECORDS SUMMARY | ~2019-04-18 | XMS | Encounter Summary ---
Demographics + + + | Address | [address] | | | [place] [address] | + + + | Home Phone [...] | | | | | [place] [address] | | + + + + + Care Team Providers + +------+ + | Care Bill Cutter Name | Role | Phone | [...] W | | | | ON | [facility] [address] [address] | | | | | [address] [facility] | Road [place], [place] | | | | | Mailcode: CH4S | [address] | | | | | [facility] | | | | | | and Healing, | | | | | | Building 1,4th Floor | | | | | | [place], [place] | | | | | | [address] | | | | | | [phone] | | | +--------+ + + + [...]
--- OUTSIDE RECORDS SUMMARY | ~2019-04-18 | XMS | Encounter Summary ---
Demographics + + + | Address | [address] | | | [place] [address] | + + + | Home Phone [...] Author + + + | Author | [facility] | + + + | Organization | [facility] | + + + | Address | Unknown | + + + | Phone | Unavailable | + + + Support + + + + + | Name | Relationship | Address | Phone | + + + + + | Scot Johnson | ECON | [address] | | | | | [place] [address] | | + + + + + Care Team Providers + +------+ + | Care Ware Carrier Name | Role | Phone | + [...] W | | | | ON | [facility] 4th Floor [address] | [address] | | | | | [address] [facility] | Road [place], [place] | | | | | Mailcode: CH4S | [address] | | | | | [facility] | | | | | | and Healing, | | | | | | Building 1,4th Floor | | | | | | [place], [place] | | | | | | [address] | | | | | | [phone] | | | +--------+ + + + [...]
--- OUTSIDE RECORDS SUMMARY | ~2019-04-18 | XMS | Encounter Summary ---
Demographics + + + | Address | [address] | | | [place] [address] | + + + | Home Phone [...] | | | | | [place] [address] | | + + + + + Care Team Providers + +------+ + | Care Game Farm Supervisor Name | Role | Phone | [...] Clinic | | | | | | [facility], [address] | | | | | | [place], [place] | | | | | | [address] | | | | | | [phone] | | | +--------+ + + + [...] | + + + + + | [facility] DEPARTMENT OF | [address] [facility] [address] | [place] [address] | | | PATHOLOGY | [address] | | | + + + + + | [facility] DEPARTMENT OF | [facility] | [place] [address] | | | PATHOLOGY | [address] [...] + + + | [facility] | [address] | [place] [address] | | | LAB-MICRO | | | | + + + + + documented in this encounter Visit Diagnoses Not on filedocumented in this encounter"
--- OUTSIDE RECORDS SUMMARY | ~2019-04-18 | XMS | Encounter Summary ---
Demographics + + + | Address | [address] | | | [place] [address] | + + + | Home Phone [...] + + + | Author | [facility] | + + + | Organization | [facility] | + + + | Address | Unknown | + + + | Phone | Unavailable | + + + Support + + + + + | Name | Relationship | Address | Phone | + + + + + | Scot Johnson | ECON | [address] | | | | | [place] [address] | | + + + + + Care Team Providers + +------+ + | Care Talkback Host Name | Role | Phone | + +------+ + PCP | Unavailable | + +------+ + Encounter Details +--------+ + + + + | Date | Type | Department | Care Team | Description | +--------+ + + + + | 11/12/ | Transcribed | Allergy Clinic at | Dictation, Other | Transcribed | | 1997 | | [facility] [address] | | | | | | [address] | | | | | | Mailcode: [id number] [address] | | | | | | Td Cohen | | | | | | [facility] | | | | | | [place] [address] | | | | | | [phone] | | | +--------+ + + + [...] as of this encounter Progress Notes Interface, Automobile Bumper Straightener In - 05/05/2006 1:04 AM PST [address] [address] or November 12, 1997 HERMAN ELMORE MD [address] [facility] [address] [place] [address] RE:CARLINE MIN MR#:[id number] Elmore: We saw your patient, Carline Min, for a rheumatoid consultation at the [facility] on November 12, 1997. The patient [...] Lainez, or myself. Sincerely, Daniel Laurent M.D. Icu Registered Nurse, Internal Medicine Deyvi Lainez M.D. Able Seaman, Rheumatology ECS/AB:reji documented in this encounter Plan of Treatment Not on filedocumented as of this encounter Visit Diagnoses Not on filedocumented in this encounter"
--- OUTSIDE RECORDS SUMMARY | ~2019-04-18 | XMS | Encounter Summary ---
Demographics + + + | Address | [address] | | | [place] [address] | + + + | Home Phone [...] | | | | | [place] [address] | | + + + + + | Robson Min | ECON | Unknown | | + + + + + | Isablela Whitehead | ECON | Unknown | | + + + + + Care Team Providers + +------+ + | Care Agriscience Teacher Name | Role | Phone | [...] Alessia Salgado | | | | | [place], [place] | [place] [address] | | | | | [address] | [phone] | | | | | [phone] | | | +--------+ + + + [...] [place] | | | | | | [address] | | | | | | | | +--------+---------+ + + + | 07/26/ | Office | Pulmonology | Navdeep Grande, | | | 2019 | Visit | | [address] | | | | | | [place] | | | | | | [address] | | | | | | | [...] LVLs A4C: 7.85 cm | | | Target Man: SAL Authenticated by: Braden Isabel Report | [...] MOD A4C: 46.26 mlLVLs A4C: 7.85 cm Target Man: | | DHAuthenticated by: Braden IsabelReport Date/Time: [...] |LVLs A4C: 7.85 cm | | | |Target Man: DH | |Authenticated by: Braden Isabel | |Report Date/Time: 09-21-2015 16:05:10 | | | |IMPRESSION: | |1. Overall left ventricular systolic function is normal with, an EF between 65 - 70 %. | + + documented in this encounter Visit Diagnoses Not on filedocumented in this encounter"
--- OUTSIDE RECORDS SUMMARY | ~2019-04-18 | XMS | Encounter Summary ---
Demographics + + + | Address | [address] | | | [place] [address] | + + + | Home Phone [...] | | | | | [place] [address] | | + + + + + Care Team Providers + +------+ + | Care Anthropologist Name | Role | Phone | + +------+ + PCP | Unavailable | + +------+ + Encounter Details +--------+ + + + + | Date | Type | Department | Care Team | Description | +--------+ + + + + | 10/31/ | Respiratory | | Other, Faculty | | | 2006 | Therapy | | [phone] | | +--------+ + + + + [...] | | | | | | Rick, COMPUTER AIDE | | | | + + + [...] [facility] | [address] | [place], [place] | | | DIAGNOSTICS - | [address] | [address] | | | PULMONARY FUNCTION | | | | + + + + + documented in this encounter Visit Diagnoses Not on filedocumented in this encounter"
--- OUTSIDE RECORDS SUMMARY | ~2019-04-18 | XMS | Encounter Summary ---
Demographics + + + | Address | [address] | | | [place] [address] | + + + | Home Phone [...] | | | | | [place] [address] | | + + + + + Care Team Providers + +------+ + | Care Spray Machine Tender Name | Role | Phone | + +------+ + PCP | Unavailable | + +------+ + Encounter Details +--------+ + + + + | Date | Type | Department | Care Team | Description | +--------+ + + + + | 10/31/ | Respiratory | | Other, Faculty | | | 2006 | Therapy | | [phone] | | +--------+ + + + + [...] | | | | | Y | EMPLOYMENT EDUCATIONAL COORD | | | | + + + [...] [facility] | [address] | [place], [place] | | | DIAGNOSTICS - | [address] | [address] | | | PULMONARY FUNCTION | | | | + + + + + documented in this encounter Visit Diagnoses Not on filedocumented in this encounter"
--- OUTSIDE RECORDS SUMMARY | ~2019-04-18 | XMS | Encounter Summary ---
Demographics + + + | Address | [address] | | | [place] [address] | + + + | Home Phone [...] + | Author | [facility] | | | and [place] | + + + | Organization | [facility] | | [...] | | | | | [place] [address] | | + + + + + | Robson Min | ECON | Unknown | | + + + + + | Isabella Whitehead | ECON | Unknown | | + + + + + Care Team Providers + +------+ + | Care Superintendent Logging Name | Role | Phone | + [...] | | | Pulmonology | airway | [address] | [address] | | | | | obstruction, | [address] | [place], | | | | | not | [place] | [place] [address] | | | | | elsewhere | [address] | Phone: | | | | | classified | [place] | [phone] | | | | | Procedures | [address] | Fax: | | | | | [place] OFFICE | Phone: | [phone] | | | | | OUTPATIENT | [phone] | | | | | | VISIT 25 | Fax: | | | | | | MINUTES | [phone] | | +--------+--------+ + + + + Encounter Details +--------+---------+ + + + | Date | Type | Department | Care Team | Description | +--------+---------+ + + + | 04/24/ | Office | [facility] | Navdeep Grande, | Other nonspecific | | 2015 | Visit | PULMONARY [address] | MD [address] | abnormal finding of | | | | [place], | [place], [place] | lung field (Primary | | | | [place] [address] | [address] | Dx); COPD, mild | | | | [phone] | | ([facility]); Chronic | | | | | | [...] not start to improve within 24 hours 4813-[address] [employer] [address] [place] [address], [place] [address]. All righ ts reserved. This information is [...] Date Wrist pain Diabetes mellitus, type 2 ([facility]) Vitamin D deficiency Hypercholesterolemia Hypothyroidism Panic anxiety syndrome IBS (irritable bowel syndrome) Restless leg syndrome Urinary hesitancy Lumbago Nocturia Pyoderma gangreosum-LE Bipolar 1 disorder ([facility]) Hypertension Lymphedema Nausea and vomiting Reflux esophagitis GI bleeding Empyema lung ([facility]) 2005 right Knee pain CHRONIC TENSION [...] 4 times daily., Disp: , Rfl: ; fznzowgfzy-xzayqut-oeigfkaa (BUTALBITA L COMPOUND/ASA) per tablet, One tablet [...] [place] | | | | | | [id number] | | | | | | | | +--------+---------+ + + + | 07/26/ | Office | Pulmonology | Navdeep Grande, | | | 2019 | Visit | | [address] | | | | | | [place] | | | | | | [address] | | | | | | | [...]
--- OUTSIDE RECORDS SUMMARY | ~2019-04-18 | XMS | Encounter Summary ---
Demographics + + + | Address | [address] | | | [place] [address] | + + + | Home Phone [...] | | | | | [place] [address] | | + + + + + | Robson Min | ECON | Unknown | | + + + + + | Isabella Whitehead | ECON | Unknown | | + + + + + Care Team Providers + +------+ + | Care Urology Teacher Name | Role | Phone | [...] | | | DR KACI [place], | [id number] | | | | | [place] [address] | | | | | | [phone] | | | +--------+ + + + [...] [place] | | | | | | [address] | | | | | | | | +--------+---------+ + + + | 07/26/ | Office | Pulmonology | Navdeep Grande, | | | 2019 | Visit | | MD [address] | | | | | | [place] | | | | | | [address] | | | | | | | | +--------+---------+ + + + documented as of this encounter Visit Diagnoses Not on filedocumented in this encounter"
--- OUTSIDE RECORDS SUMMARY | ~2019-04-18 | XMS | Encounter Summary ---
Demographics + + + | Address | [address] | | | [place] [address] | + + + | Home Phone [...] | | | | | [place] [address] | | + + + + + | Robson Min | ECON | Unknown | | + + + + + | Isabella Whitehead | ECON | Unknown | | + + + + + Care Team Providers + +------+ + | Care Cook Pressure Name | Role | Phone | + [...] Zhou [place]ARSON | | | | | [phone] | [place] [address] | | +--------+ + + + + [...] [place] | | | | | | [address] | | | | | | | | +--------+---------+ + + + | 07/26/ | Office | Pulmonology | Navdeep Grande, | | | 2019 | Visit | | [address] | | | | | | [place] | | | | | | [address] | | | | | | | [...]
--- OUTSIDE RECORDS SUMMARY | ~2019-04-18 | XMS | Encounter Summary ---
Demographics + + + | Address | [address] | | | [place] [address] | + + + | Home Phone [...] | | | | | [place] [address] | | + + + + + | Robson Min | ECON | Unknown | | + + + + + | Isabella Whitehead | ECON | Unknown | | + + + + + Care Team Providers + +------+ + | Care Automatic Hemmer Name | Role | Phone | + [...] | | | Pulmonology | (chronic | [address] | [address] | | | | | obstructive | [address] | [place] | | | | | pulmonary | [place] | [place] [address] | | | | | disease) | [address] | Phone: | | | | | ([facility]) | [place] | [phone] | | | | | Procedures | [address] | Fax: | | | | | F/U [place] [address] | Phone: | [phone] | | | | | DARRICK GRANDE | [phone] | | | | | | 11/19/17 | Fax: | | | | | | | [phone] | | +--------+--------+ + + + + Encounter Details +--------+---------+ + + + | Date | Type | Department | Care Team | Description | +--------+---------+ + + + | 12/10/ | Office | [facility] [place] | Navdeep Grande, | Alveolar | | 2018 | Visit | PULMONARY [address] | MD [address] | hypoventilation | | | | [place], | [place], [place] | (Primary Dx); COPD, | | | | [place] [address] | [address] | mild (HCC); | | | | [phone] | | Hypoxemia; JESUSITA and | | [...] need to be calibrated. Someone from your [facility] team will adjust the settings. That person [...] irritation from your mask Date Last Reviewed: 05/20/201619998397-4980 [employer]. [address] [place] [address]. All righ ts reserved. This information is [...] 50,000 Units by mouth Once a w [place]., Disp: , Rfl: fluticasone-salmeterol (ADVAIR DISKUS) 250-50 [...] [place] | | | | | | [address] | | | | | | | | +--------+---------+ + + + | 07/26/ | Office | Pulmonology | Navdeep Grande, | | | 2019 | Visit | | [address] | | | | | | [place] | | | | | | [address] | | | | | | | [...]
--- OUTSIDE RECORDS SUMMARY | ~2019-04-18 | XMS | Encounter Summary ---
Demographics + + + | Address | [address] | | | [place] [address] | + + + | Home Phone [...] | | | | | [place] [address] | | + + + + + | Robson Min | ECON | Unknown | | + + + + + | Isabella Whitehead | ECON | Unknown | | + + + + + Care Team Providers + +------+ + | Care Fresh Foods Cake Decorator Name | Role | Phone | + [...] Results, Imaging | | 2018 | | [facility] NEUROLOGY | [address] | | | | | CLINIC [address] | [place] | | | | | DR KACI [place], | [address] | | | | | [place] [address] | | | | | | [phone] | | | +--------+ + + + [...] [place] | | | | | | [address] | | | | | | | | +--------+---------+ + + + | 07/26/ | Office | Pulmonology | Navdeep Grande, | | | 2020 | Visit | | [address] | | | | | | [place] | | | | | | [address] | | | | | | | | +--------+---------+ + + + documented as of this encounter Visit Diagnoses Not on filedocumented in this encounter"
--- OUTSIDE RECORDS SUMMARY | ~2019-04-18 | XMS | Encounter Summary ---
Demographics + + + | Address | [address] | | | [place] [address] | + + + | Home Phone | | + + + | Preferred Language | Unknown | + + + | Marital Status | Single | + + + | Taoist Affiliation | CHR | + + + [...] | | | | | [place] [address] | | + + + + + [...] as of this encounter Discharge Summaries Interface, Dope Firer In - 10/10/2005 1:[address] [address] [facility] MEDICAL SUMMARY OF HOSPITALIZATION Med Rec No: [...] from an outside hospital on the [facility]. She initially presented to the emergency department [...] 3. Synthroid 300 mcg p.o. everyday. 4. Rbror-Mym-Fzsjkj one tablet p.o. everyday. 5. Vioxx 25 [...] AR:y00 FAX: BART ELMORE MD OFFICE NUMBER [phone] signed by Interface, Dope Firer In at 10/10/2005 1:11 AM PDTdoc umented in this encounter Plan of Treatment Not on filedocumented as of this encounter Visit Diagnoses Not on filedocumented in this encounter"
--- OUTSIDE RECORDS SUMMARY | ~2019-04-18 | XMS | Encounter Summary ---
Demographics + + + | Address | [address] | | | [place] [address] | + + + | Home Phone [...] | | | | | [place] [address] | | + + + + + Care Team Providers + +------+ + | Care Platform Stapler Name | Role | Phone | [...] Clinic | | | | | | [facility], [address] | | | | | | [place], [place] | | | | | | [address] | | | | | | [phone] | | | +--------+ + + + [...] | | + +---------+ + + | [facility] DEPARTMENT OF | | | | | RADIOLOGY | | | | + +---------+ + + documented in this encounter Visit Diagnoses Not on filedocumented in this encounter"
--- OUTSIDE RECORDS SUMMARY | ~2019-04-18 | XMS | Encounter Summary ---
Demographics + + + | Address | [address] | | | [place] [address] | + + + | Home Phone [...] | | | | | [place] [address] | | + + + + + | Robson Min | ECON | Unknown | | + + + + + | Isabella Whitehead | ECON | Unknown | | + + + + + Care Team Providers + +------+ + | Care Anesthesia Assistant Name | Role | Phone | [...] | | | | | disease, | [place] | [place] [address] | | | | | unspecified | [place] | Phone: | | | | | ([facility]) | [address] | [phone] | | | | | Obstructive | Phone: | Fax: | | | | | sleep apnea | [phone] | [phone] | | | | | (adult) | Fax: | | | | | | (pediatric) | [phone] | | | | | | Procedures [...] + + | 09/22/ | [facility] [place] | Navdeep Grande, | Alveolar | | 2019 | Visit | PULMONARY [address] | MD [address] | hypoventilation | | | | [place], | [place], [place] | (Primary Dx); COPD, | | | | [place] [address] | [address] | moderate (HCC); | | | | [phone] | | Hypoxemia; COPD, | | | [...] information carefully each time. Talk to your drafter cartographic regarding the use of this medicine in children. Special care may be needed. What side effects may I notice from receiving this medicine? Side effects that you should report to your doctor or health janitor caretaker as soon as p ossible: allergic reactions like skin rash, itching or hives, swelling of the face, lips, or tong ue anxious breathing problems suicidal thoughts or other mood changes trouble sleeping weight loss Side effects that usually do not require medical attention (report to your doctor or health janitor caretaker if they continue or are bothersome): back [...] HOSPITAL) Followed by Dr. Becerra Rheumologist in [place] Reflux esophagitis Restless leg syndrome Urinary [...] 50,000 Units by mouth Once a w [place]., Disp: , Rfl: fluticasone-salmeterol (ADVAIR HFA) 115-21 [...] daily., Disp: , Rfl: Respiratory Therapy Supplies [facility] [place] Portable oxygen concentrator to [...] QUADR W/PRES (PED/ADOL/ADULT) MULTIDOSE 01/27/2017, 02/10/2018 INFLUENZA, W0R6-04, UNSPECIFIED 03/09/2009 INFLUENZA, UNSPECIFIED FORMULATION 04/27/2000, 02/04/2011, [...] pack of cigarettes a day. 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
--- OUTSIDE RECORDS SUMMARY | ~2019-04-18 | XMS | Encounter Summary ---
Demographics + + + | Address | [address] | | | [place] [address] | + + + | Home Phone [...] | | | | | [place] [address] | | + + + + + | Robson Min | ECON | Unknown | | + + + + + | Isabella Whitehead | ECON | Unknown | | + + + + + Care Team Providers + +------+ + | Care Lens Molder Name | Role | Phone | + +------+ + | Bart Ba DO | PCP | | + +------+ + Encounter Details +--------+ + + + + | Date | Type | Department | Care Team | Description | +--------+ + + + + | 11/19/ | Hospital | [facility] | Navdeep Grande, | COPD, mild (HCC) | | 2018 | Encounter | MED CTR PULMONARY | MD [address] | | | | | FUNCTION [address] | [place], [place] | | | | | [place], | [address] | | | | | [place] [address] | | | | | | [phone] | | | +--------+ + + + [...] [place] | | | | | | [address] | | | | | | | | +--------+---------+ + + + | 07/26/ | Office | Pulmonology | Navdeep Grande, | | | 2019 | Visit | | MD [address] | | | | | | [place] | | | | | | [address] | | | | | | | [...] | signed by: Navdeep Grande MD 11/19/2017 12:24[facility] | | |physiology. Lung volume testing [...] Navdeep Grande MD 11/19/2017 12:24 | | |[facility] | | + + + documented in this encounter Visit Diagnoses + + | Diagnosis | + + | COPD, mild (HCC) Chronic airway obstruction, not elsewhere classified | + + documented in this encounter"
--- OUTSIDE RECORDS SUMMARY | ~2019-04-18 | XMS | Encounter Summary ---
Demographics + + + | Address | [address] | | | [place] [address] | + + + | Home Phone [...] | | | | | [place] [address] | | + + + + + | Robson Min | ECON | Unknown | | + + + + + | Isabella Whitehead | ECON | Unknown | | + + + + + Care Team Providers + +------+ + | Care Washer Meat Name | Role | Phone | + [...] | (Primary Dx) | | | | [place], | | | | | | [place] [address] | | | | | | [phone] | | | +--------+ + + + [...] [place] | | | | | | [address] | | | | | | | | +--------+---------+ + + + | 07/26/ | Office | Pulmonology | Navedep Grande, | | | 2019 | Visit | | [address] | | | | | | [place] | | | | | | [address] | | | | | | | | +--------+---------+ + + + documented as of this encounter Results XR Chest PA and Lateral (04/04/2012 12:25 PM PST) + + | Specimen | + + | | + + + + + | Narrative | Performed At | + + + | [facility] Diagnostic Imaging | [place] | | Department [address] | [facility] | | [ rep [address]] [ rep [facility] | | [facility]] Signed | - IMAGING | | | | | Patient Name: CARLINE MIN Physician: | | | RODRI : 1970 Age: 41 Sex: F Unit #: [id number] | | | Exam Date: 04/04/12 [place] [facility] | | | Report #: [id number] Page: | | | %(RAD)RES..mtdd.print.filter("pg") of %(RAD) | | | RES..mtdd.print.filter("tpg") | | | | | | Accession Number: [id number] | | | CHEST X-RAY, 04/04/2012 CLINICAL [...] | | | Transcribed Date/Time: 04/04/2012 15:34 Conveyor Feeder: | | | <<Signature on File>> | | | Magdy | | | MD Shaun04/05/12 0055 <Electronically signed by Magdy Dunn MD> | | | Magdy Dunn MD 04/04/12 1225 Conveyor Feeder: [employer] | | | Ruwxchgidbita60/17/12 1534 Navdeep Grande MD | | | | | + + + + + + + + | Performing | Address | City/State/Zipcode | Phone Number | | Organization | | | | + + + + + | [facility] | [address] | [place] | [phone] | | [facility] | | [address] | | | - IMAGING | | | | + + + + + documented in this encounter Visit Diagnoses + + | Diagnosis | + + | Abnormal chest CT - Primary Nonspecific (abnormal) findings on radiological and other | | examination of other intrathoracic organs | + + documented in this encounter
--- OUTSIDE RECORDS SUMMARY | ~2019-04-18 | XMS | Encounter Summary ---
Demographics + + + | Address | [address] | | | [place] [address] | + + + | Home Phone [...] | | | | | [place] [address] | | + + + + + Care Team Providers + +------+ + | Care Radiation Protection Engineer Name | Role | Phone | + +------+ + PCP | Unavailable | + +------+ + Encounter Details +--------+ + + + + | Date | Type | Department | Care Team | Description | +--------+ + + + + | 11/02/ | Respiratory | | Other, Faculty | | | 2006 | Therapy | | [phone] | | +--------+ + + + + [...] | | | Y | Lisa Wahl, READING ASSISTANT | | | | + + + [...] [facility] | [address] | [place], [place] | | | DIAGNOSTICS - | [address] | [address] | | | PULMONARY FUNCTION | | | | + + + + + documented in this encounter Visit Diagnoses Not on filedocumented in this encounter"
--- OUTSIDE RECORDS SUMMARY | ~2019-04-18 | XMS | Encounter Summary ---
Demographics + + + | Address | [address] | | | [place] [address] | + + + | Home Phone [...] | | | | | [place] [address] | | + + + + + Care Team Providers + +------+ + | Care Integration Analyst Name | Role | Phone | + +------+ + PCP | Unavailable | + +------+ + Encounter Details +--------+ + + + + | Date | Type | Department | Care Team | Description | +--------+ + + + + | 10/28/ | Respiratory | | Other, Faculty | | | 2006 | Therapy | | [phone] | | +--------+ + + + + [...] [facility] | [address] | [place], [place] | | | DIAGNOSTICS - | [address] | [address] | | | PULMONARY FUNCTION | | | | + + + + + documented in this encounter Visit Diagnoses Not on filedocumented in this encounter"
--- OUTSIDE RECORDS SUMMARY | ~2019-04-18 | XMS | Encounter Summary ---
Demographics + + + | Address | [address] | | | [place] [address] | + + + | Home Phone [...] | | | | | [place] [address] | | + + + + + | Robson Min | ECON | Unknown | | + + + + + | Isabella Whitehead | ECON | Unknown | | + + + + + Care Team Providers + +------+ + | Care Recreation Instructor Name | Role | Phone | [...] | Visit | HOSPITAL [facility]UROLOGY | Theo, ARCHITECTURAL JOB CAPTAIN [address] | with aura without | | | | CLINIC [address] | [facility], | status migrainosus | | | | DR [place]ACI [place], | [place] [address] | (Primary Dx); | | | | [place] [address] | [phone] | Confusion and | | | | [phone] | | disorientation; | | | | | | Diabetic | | | | | | polyneuropathy | | | | | | associated with type | | | | | | 2 diabetes mellitus | | | | | | ([facility]) | +--------+---------+ + + + Social [...] before each headache. Show this to your [facility] provider to help find the cause of [...] Difficulty talking or seeing Date Last Reviewed: 11/18/201519996888-[address] [employer] [place] [address]. All righ ts reserved. This information is [...] early if it happens. Date Last Reviewed: 08/17/201719997353-5159 [employer]. [address] [place], [place] [address]. All righ ts reserved. This information is [...] Nonsteroidal anti-inflammatory drugs (such as ibuprofen, available qovn-irs-zdedtxp) ? Beta-blockers ? Anticonvulsants ? Tricyclic antidepressants [...] of caffeine you consume. Date Last Reviewed: 08/17/201719993999-4845 [employer]. [address] [place] [address]. All righ ts reserved. This information is not intended as a substitute for professional medical care. Always follow your healthcare professional's instructions. documented in this encounter Progress Notes Theo Potter FNP - 09/16/2018 9:45 AM PDT Patient: Kait Min Medical Record: [id number] Date of Services: 09/16/2018 Referring Doctor: TIMOTHY [...] hours, sometimes a full day. The patien t would have dysarthria and slurred speech, unsteady [...] her symptoms have not recurred. The joey apz is currently wearing oxygen, 1 L nasal cannula today. The patient did have an MRI of t he brain done in December 2017 which showed [...] are intact. There is no dysmetria on xuvgbj-jj-bnna and jufx-tbhq-skny. There are no abnormal or extraneous movements. [...] least 30 minutes three times a w telida will help reduce frequency or severity of migraine. ? Avoid alcohol and caffeine. Acute confusional state: The patient should continue to follow up with her PCP. Her sympto ms at her last visit in July for consistent with her acute confusional states per the francesca alford's report. The patient is experiencing acute hypoxemia/hypoxia [...] prescribed by her PCP. We also discussed kfns-ytk-ziieemd medications which could help with her symptoms [...] [place] | | | | | | [id number] | | | | | | | | +--------+---------+ + + + | 07/26/ | Office | Pulmonology | Navdeep Grande, | | | 2019 | Visit | | [address] | | | | | | [place] | | | | | | [address] | | | | | | | | +--------+---------+ + + + documented as of this encounter Results [facility] INJECTION [facility] PROCEDURE (12/02/2018 11:15 AM PDT) + + + | Narrative | Performed At | + + + | Jimbo Samayoa MD 12/02/2018 11:17 Kait Min | | | 12/02/2018 PROCEDURE: [...] | Sincerely, Jimbo Samayoa M.D. Neurologist [phone] | | | Electronically signed | | [...]
--- OUTSIDE RECORDS SUMMARY | ~2019-04-18 | XMS | Encounter Summary ---
Demographics + + + | Address | [address] | | | [place] [address] | + + + | Home Phone [...] | | | | | [place] [address] | | + + + + + | Robson Min | ECON | Unknown | | + + + + + | Isabella Whitehead | ECON | Unknown | | + + + + + Care Team Providers + +------+ + | Care Blue Line Trimmer Name | Role | Phone | [...] POPLAR | obstructive | | | | [place], | [place], [place] | pulmonary disease) | | | | [place] [address] | [address] | ([facility]) (Primary Dx) | | | | [phone] | | | +--------+---------+ + + + [...] October. The patient was apparently hospitalized at [facility] in [facility] in March 2013 for pneumonia. Therapy consisted of antibiotics and supplemental oxygen. The patient was discharged home on oxygen at 1 L per minute. She is subsequently been told by Dr. Ba wear supplemental oxygen at night while she sleeps. The patient was placed on Ad vair at the [facility]. Kait has questions regarding whether she still [...] Date Wrist pain Diabetes mellitus, type 2 ([facility]) Vitamin D deficiency Hypercholesterolemia Hypothyroidism Panic anxiety syndrome IBS (irritable bowel syndrome) Restless leg syndrome Urinary hesitancy Lumbago Nocturia Pyoderma gangreosum-LE Bipolar 1 disorder ([facility]) Hypertension Lymphedema Nausea and vomiting Reflux esophagitis GI bleeding Empyema lung ([facility]) 2005 right Knee pain CHRONIC TENSION HEADACHE [...] 4 times daily., Disp: , Rfl: ; rdkyrlimoh-qpbqndl-ndsvjcoi (BUTALBITA L COMPOUND/ASA) per tablet, One tablet [...] [place] | | | | | | [address] | | | | | | | | +--------+---------+ + + + | 07/26/ | Office | Pulmonology | Navdeep Grande, | | | 2019 | Visit | | MD Cely GORE | | | | | | [place] | | | | | | [id number] | | | | | | | [...] PFT PULMONARY FUNCTION TESTING ORDERS Full PFT ([place] w/BD, lung volumes, diffusion)?: Yes; Rest and [...] MD 08/25/2013 15:49 [facility] | | | [facility] | | + + + + [...] | | Navdeep Grande MD 08/25/2013 15:49[facility] | |IMPRESSION: Spirometry is consistent with normal physiology. Lung volume testing is consist ent with normal physiology. Diffusion capacity is mildly reduced and was not corrected for m easured hemoglobin. | | | |No prior pulmonary function tests available for comparison | | | |Test performed: 08/25/13 | |Electronically signed by: Navdeep Grande MD 08/25/2013 15:49 | |[facility] | + + documented in this encounter Visit Diagnoses + + | Diagnosis | + + | COPD (chronic obstructive pulmonary disease) (HCC) - Primary Chronic airway | | obstruction, not elsewhere classified | + + documented in this encounter
--- OUTSIDE RECORDS SUMMARY | ~2019-04-18 | XMS | Encounter Summary ---
Demographics + + + | Address | [address] | | | [place] [address] | + + + | Home Phone [...] | | | | | [place] [address] | | + + + + + Care Team Providers + +------+ + | Care Roving Marker Name | Role | Phone | + +------+ + PCP | Unavailable | + +------+ + Encounter Details +--------+ + + + + | Date | Type | Department | Care Team | Description | +--------+ + + + + | 10/29/ | Respiratory | | Other, Faculty | | | 2006 | Therapy | | [phone] | | +--------+ + + + + [...] [facility] | [address] | [place], [place] | | | DIAGNOSTICS - | [address] | [address] | | | PULMONARY FUNCTION | | | | + + + + + documented in this encounter Visit Diagnoses Not on filedocumented in this encounter"
--- OUTSIDE RECORDS SUMMARY | ~2019-04-18 | XMS | Encounter Summary ---
Demographics + + + | Address | [address] | | | [place] [address] | + + + | Home Phone [...] + + + | Author | [facility] | | | and [place] | + + + | Organization | [facility] | | [...] | | | | | [place] [address] | | + + + + + | Robson Min | ECON | Unknown | | + + + + + | Isabella Whitehead | ECON | Unknown | | + + + + + Care Team Providers + +------+ + | Care Orthopedically Impaired Teacher Name | Role | Phone | [...] RN | Alveolar | | | | [place], | | hypoventilation; | | | | [place] [address] | | Hypoxemia | | | | [phone] | | | +--------+ + + + [...] [place] | | | | | | [address] | | | | | | | | +--------+---------+ + + + | 07/26/ | Office | Pulmonology | Navdeep Grande, | | | 2019 | Visit | | MD Cely GORE | | | | | | [place] | | | | | | [id number] | | | | | | | [...]
--- OUTSIDE RECORDS SUMMARY | ~2019-04-18 | XMS | Encounter Summary ---
Demographics + + + | Address | [address] | | | [place] [address] | + + + | Home Phone [...] | | | | | [place] [address] | | + + + + + Care Team Providers + +------+ + | Care Barrel Handler Name | Role | Phone | + +------+ + PCP | Unavailable | + +------+ + Encounter Details +--------+ + + + + | Date | Type | Department | Care Team | Description | +--------+ + + + + | 11/03/ | Respiratory | | Other, Faculty | | | 2006 | Therapy | | [phone] | | +--------+ + + + + [...] [facility] | [address] | [place], [place] | | | DIAGNOSTICS - | [address] | [address] | | | PULMONARY FUNCTION | | | | + + + + + documented in this encounter Visit Diagnoses Not on filedocumented in this encounter"
--- OUTSIDE RECORDS SUMMARY | ~2019-04-18 | XMS | Encounter Summary ---
Demographics + + + | Address | [address] | | | [place] [address] | + + + | Home Phone [...] Author + + + | Author | [facility] | + + + | Organization | [facility] | + + + | Address | Unknown | + + + | Phone | Unavailable | + + + Support + + + + + | Name | Relationship | Address | Phone | + + + + + | Scot Johnson | ECON | [address] | | | | | [place] [address] | | + + + + + Care Team Providers + +------+ + | Care Molder Foam Rubber Name | Role | Phone | + [...] | | , [address] | [place] [address] | [place], [place] | | | | | [place] | Phone: | [address] | | | | | OFFICE/OUTPT | [phone] | Phone: | | | | | | Fax: | [phone] | | | | | VISIT,EST,LE | [phone] | Fax: | | | | | VL III 1 | | [phone] | | | | | consult, 3 [...] | 2007 | Visit | Medical at [facility] [address] | MD [address] | Pyoderma, | | | | Floor [address] | [place], [place] | Unspecified | | | | Ave Mailcode: [facility] | [address] | | | | | [facility] | [phone] | | | | | and Healing, | | | | | | Building | | | | | | Floor [place], [place] | | | | | | [address] | | | | | | [phone] | | | +--------+---------+ + + + [...] agree with the documentation. Zayda Ordaz M.D. Dependency Program Director of Dermatology. Sandy Durbin, Az[place] - 008 [...] Jacobson MD Resident PGY-2, Department of Dermatology [facility] [place] documented in this encoun ter Plan of [...] Lab) | | | | | | [facility] | | | | | | [address] | | | | | [address] | | | | | | [place], [place] | | | | | | [address]: Test | | | | | | performed at [facility] | | | | | | [facility] | | | | | | Laboratory. | | | | + + + + + + + + | Specimen | + + | Leg - Left | + + + + + + + | Performing | Address | City/State/Zipcode | Phone Number | | Organization | | | | + + + + + | [facility] | [address] | [place] [address] | | | LAB-MICRO | | | | + + + + + documented in this encounter Visit Diagnoses + + | Diagnosis | + + | Ulcer - Primary Chronic ulcer of unspecified site | + + | Pyoderma, unspecified | + + documented in this encounter"
--- OUTSIDE RECORDS SUMMARY | ~2019-04-18 | XMS | Encounter Summary ---
Demographics + + + | Address | [address] | | | [place] [address] | + + + | Home Phone [...] | | | | | [place] [address] | | + + + + + | Robson Min | ECON | Unknown | | + + + + + | Isabella Whitehead | ECON | Unknown | | + + + + + Care Team Providers + +------+ + | Care Manager Research And Development Name | Role | Phone | + [...] + + | 01/19/ | Documentati | [facility] | Nora Francis, | Other (end of study) | | 2019 | on | CARDIOLOGY [place] | Technologist | | | | | [address] | | | | | | [place] | | | | | | [address] | | | | | | [phone] | | | +--------+ + + + [...] [place] | | | | | | [address] | | | | | | | | +--------+---------+ + + + | 07/26/ | Office | Pulmonology | Navdeep Grande, | | | 2019 | Visit | | MD Cely GORE | | | | | | [place] | | | | | | [address] | | | | | | | | +--------+---------+ + + + documented as of this encounter Visit Diagnoses + + | Diagnosis | + + | Palpitations | + + documented in this encounter
--- OUTSIDE RECORDS SUMMARY | ~2019-04-18 | XMS | Encounter Summary ---
Demographics + + + | Address | [address] | | | [place] [address] | + + + | Home Phone [...] | | | | | [place] [address] | | + + + + + | Robson Min | ECON | Unknown | | + + + + + | Isabella Whitehead | ECON | Unknown | | + + + + + Care Team Providers + +------+ + | Care Compliance Engineer Name | Role | Phone | + +------+ + PCP | Unavailable | + +------+ + Encounter Details +--------+ + + + + | Date | Type | Department | Care Team | Description | +--------+ + + + + | 04/06/ | Hospital | [facility] | | | | 2000 | Encounter | MED CTR SLEEP | | | | | | CENTER [address] | | | | | | [place] | | | | | | [address] | | | | | | [phone] | | | +--------+ + + + [...] [place] | | | | | | [address] | | | | | | | | +--------+---------+ + + + | 07/26/ | Office | Pulmonology | Navdeep Grande, | | | 2019 | Visit | | MD Cely GORE | | | | | | [place] | | | | | | [address] | | | | | | | | +--------+---------+ + + + documented as of this encounter Visit Diagnoses Not on filedocumented in this encounter"
--- OUTSIDE RECORDS SUMMARY | ~2019-04-18 | XMS | Encounter Summary ---
Demographics + + + | Address | [address] | | | [place] [address] | + + + | Home Phone [...] | | | | | [place] [address] | | + + + + + | Robson Min | ECON | Unknown | | + + + + + | Isabella Whitehead | ECON | Unknown | | + + + + + Care Team Providers + +------+ + | Care Music Professionals Name | Role | Phone | + +------+ + PCP | Unavailable | + +------+ + Encounter Details +--------+ + + + + | Date | Type | Department | Care Team | Description | +--------+ + + + + | 02/21/ | Hospital | [facility] | Neno Walker | | | 2000 | Encounter | MED CTR SLEEP | MD Srinivas [address] | | | | | [place] [address] | [address] | | | | | [place] | [place] [address] | | | | | [address] | [phone] | | | | | [phone] | | | +--------+ + + + [...] [place] | | | | | | [address] | | | | | | | | +--------+---------+ + + + | 07/26/ | Office | Pulmonology | Navdeep Grande, | | | 2019 | Visit | | MD Cely GORE | | | | | | [place] | | | | | | [address] | | | | | | | | +--------+---------+ + + + documented as of this encounter Visit Diagnoses Not on filedocumented in this encounter"
--- OUTSIDE RECORDS SUMMARY | ~2019-04-18 | XMS | Encounter Summary ---
Demographics + + + | Address | [address] | | | [place] [address] | + + + | Home Phone [...] | | | | | [place] [address] | | + + + + + | Robson Min | ECON | Unknown | | + + + + + | Isabella Whitehead | ECON | Unknown | | + + + + + Care Team Providers + +------+ + | Care Senior Policy Advisor Name | Role | Phone | [...] | SR | | | | | [phone] | | | +--------+ + + + [...] [place] | | | | | | [address] | | | | | | | | +--------+---------+ + + + | 07/26/ | Office | Pulmonology | Navdeep Grande, | | | 2019 | Visit | | MD Cely GORE | | | | | | [place] | | | | | | [address] | | | | | | | | +--------+---------+ + + + documented as of this encounter Visit Diagnoses Not on filedocumented in this encounter
--- OUTSIDE RECORDS SUMMARY | ~2019-04-18 | XMS | Encounter Summary ---
Demographics + + + | Address | [address] | | | [place] [address] | + + + | Home Phone [...] | | | | | [place] [address] | | + + + + + Care Team Providers + +------+ + | Care Sewer System Supervisor Name | Role | Phone | + +------+ + PCP | Unavailable | + +------+ + Encounter Details +--------+ + + + + | Date | Type | Department | Care Team | Description | +--------+ + + + + | 11/01/ | Respiratory | | Other, Faculty | | | 2006 | Therapy | | [phone] | | +--------+ + + + + [...] | | | Y | Lisa Wahl, RN PALLIATIVE CARE | | | | + + + [...] [facility] | [address] | [place], [place] | | | DIAGNOSTICS - | [address] | [address] | | | PULMONARY FUNCTION | | | | + + + + + documented in this encounter Visit Diagnoses Not on filedocumented in this encounter"
--- OUTSIDE RECORDS SUMMARY | ~2019-04-18 | XMS | Encounter Summary ---
Demographics + + + | Address | [address] | | | [place] [address] | + + + | Home Phone [...] Author + + + | Author | [facility] | + + + | Organization | [facility] | + + + | Address | Unknown | + + + | Phone | Unavailable | + + + Support + + + + + | Name | Relationship | Address | Phone | + + + + + | Soct Johnson | ECON | [address] | | | | | [place] [address] | | + + + + + Care Team Providers + +------+ + | Care Patent Agent Name | Role | Phone | + +------+ + | Bart Ba DO | PCP | | + +------+ + Encounter Details +--------+ + + + + | Date | Type | Department | Care Team | Description | +--------+ + + + + | 12/12/ | Telephone | Dermatology | Azucena Jacobson MD | | | 2007 | | Medical at [facility] | [address] | | | | | Floor [address] [facility] | | | | | Cyn[place] Mailcode: CH16D | [place] [address] | | | | | [facility] | [phone] | | | | | and Healing, | | | | | | | | | | | | Floor [place], [place] | | | | | | [address] | | | | | | [phone] | | | +--------+ + + + [...]
--- OUTSIDE RECORDS SUMMARY | ~2019-04-18 | XMS | Encounter Summary ---
Demographics + + + | Address | [address] | | | [place] [address] | + + + | Home Phone [...] | | | | | [place] [address] | | + + + + + Care Team Providers + +------+ + | Care Rush Seater Name | Role | Phone | + +------+ + PCP | Unavailable | + +------+ + Encounter Details +--------+ + + + + | Date | Type | Department | Care Team | Description | +--------+ + + + + | 10/29/ | Respiratory | | Other, Faculty | | | 2006 | Therapy | | [phone] | | +--------+ + + + + [...] [facility] | [address] | [place], [place] | | | DIAGNOSTICS - | [address] | [address] | | | PULMONARY FUNCTION | | | | + + + + + documented in this encounter Visit Diagnoses Not on filedocumented in this encounter"
--- OUTSIDE RECORDS SUMMARY | ~2019-04-18 | XMS | Encounter Summary ---
Demographics + + + | Address | [address] | | | [place] [address] | + + + | Home Phone [...] | | | | | [place] [address] | | + + + + + | Robson Escobar | ECON | Unknown | | + + + + + | Isabella Whitehead | ECON | Unknown | | + + + + + Care Team Providers + +------+ + | Care Cut Plug Packer Name | Role | Phone | + +------+ + | Bart Ba DO | PCP | | + +------+ + Encounter Details +--------+ + + + + | Date | Type | Department | Care Team | Description | +--------+ + + + + | 03/21/ | Hospital | [facility] | Luis [place], | NSTEMI (non-ST | | 2013 - | Encounter | [facility] | MD [address] | elevated myocardial | | | | CARE FLOOR [address] | [place] [address] | infarction) ([facility]); | | 03/24/ | | [address] | [phone] | Current smoker; RA | | 2012 | | [place], [place] | | (rheumatoid | | | | [address] | | arthritis) ([facility]); | | | | [phone] | | ARF (acute renal | | | | | | failure) ([facility]); | | | | | | Bacterial pneumonia, | | | | | | unspecified; COPD | | | | | | exacerbation ([facility]); | | | | | | Elevated brain | | | | | | natriuretic peptide | | | | | | (BNP) level; | | | | | | Hypoxemia; Abnormal | | | | | | LFTs; Hyponatremia; | | | | | | Hyperkalemia; DM | | | | | | (diabetes mellitus) | | | | | | ([facility]); Tobacco | | | | | | [...] Date of Service: 03/24/13 105 Status: Signed Utilities Ground Worker: Arcadio Cobian MD (Physician) [facility]: Hospitalist Physician Discharge Summary Pt: Carline Escobar AGE/SEX: 42 y.o. female ROOM: [facility]44-1 PCP: BART BA : 1970 Admit date: [...] and had elevated Trop[ with possible NSTE W[place] and possible underlying PNA Bacterial pneumonia, unspecified [...] 1 tablet by mouth daily. Nebulizer (medical physics teacher) Dispense and provide instruction as needed. 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 You may get these medications from any pharmacy. aspirin 81 MG EC tablet fluticasone-salmeterol 250-50 MCG/DOSE ipratropium-albuterol 0.5-2.5 mg/3mL levofloxacin 500 MG tablet Nebulizer (medical physics teacher) Activity: activity as tolerated Diet: regular diet [...] | 0 | 10/08/19 | | | cludtpqrna-uzeaxnx-k | every 6 hours as | | [...] 03/24/131552 Date of Service: 03/24/131552 Status: Signed Utilities Ground Worker: Bernardo Avery RN (Registered Nurse) Discharge instructions reviewed with pt and family. IV removed, cannula intact. No complain s, concerns or questions at this time. Discharged to home/self care per private vehicle. BERNARDO AVERY RN Ayanna Rodríguez MSW - 03/24/2013 3:05 PM PST Case Management by EMA Fishman at 03/24/13 1860 Author: EMA Fishman Service: (none) Author Type: Professor Of Musicology Filed: 03/24/13 2854 Date of Service: 03/24/13 722 Status: Signed Utilities Ground Worker: EMA Fishman (Professor Of Musicology) 03/22/13 1100 Discharge Planning Evaluation Living Arrangements [...] this time. Community resources utilized / needed: [place] for home 02 Assistance in transportation: family [...] Date of Service: 03/24/13 1436 Status: Signed Utilities Ground Worker: Crystal Dunaway RRT (Registered Respiratory Therapist) [facility] Respiratory [facility] Oxygen Evaluation (Evaluation is valid for 48 [...] 03/24/13848 Date of Service: 03/24/13846 Status: Signed Utilities Ground Worker: Vinny Strickland MD (Physician) Nuc images reviewed, they are normal. I think small troponin elevation was not due to an [place], but to hypoxia from respiratory issu es. [...] 03/23/131907 Date of Service: 03/23/131852 Status: Signed Utilities Ground Worker: Pedro Hester MD (Physician) PCP : BART [...] charting completed later after rounds. Dictation software, YouTab, used which may contain error for similar [...] Service: Hospitalist Author Type: Physician Filed: 03/23/13 1154 Date of Service: 03/23/13 1146 Status: Signed Utilities Ground Worker: Arcadio Cobian MD (Physician) [facility]: Hospitalist Progress Note Pt: Carline Escobar AGE/SEX: 42 y.o. female ROOM: [address] [place] [address] : 1970 PCP: BART BA ADMIT DATE: 03/21/2013 TODAY'S DATE: 03/23/2013 Hospital Day/Hospital Course: LOS: 2 days 42 YO F with PMHof HTN, DM2, RA came with SOB and and had elevated Trop[ with possible NSTE WY and possible underlying PNA SUBJECTIVE: Patient seen [...] and had elevated Trop[ with possible NSTE WY and possible underlying PNA NSTEMI (non-ST elevated myocardial infarction): Though Trop is slightly elevated but Doubt she had real WY? I DW Dr. Strickland and will do [...] Date of Service: 03/23/13 0849 Status: Signed Utilities Ground Worker: Vinny Strickland MD (Physician) No complaints. Mildly [...] Date of Service: 03/22/13 1306 Status: Signed Utilities Ground Worker: Arcadio Cobian MD (Physician) [facility]: Hospitalist Progress Note Pt: Carline Escobar AGE/SEX: 42 y.o. female ROOM: 4447/4447-1 : 1970 PCP: BART BA ADMIT DATE: 03/21/2013 TODAY'S DATE: 03/22/2013 Hospital Day/Hospital Course: LOS: 1 day 42 YO F with PMHof HTN, DM2, RA came with SOB and and had elevated Trop[ with possible NSTE WY and possible underlying PNA SUBJECTIVE: Patient seen [...] and had elevated Trop[ with possible NSTE WY and possible underlying PNA NSTEMI (non-ST elevated [...] Oxana Gamino RD Service: (none) Author Type: Photograph Editor Filed: 03/22/13 1037 Date of Service: 03/22/13 1025 Status: Signed Utilities Ground Worker: Oxana Gamino RD (Photograph Editor) Elevated blood sugars, was 307 this am. [...] remain elevated. Oxana Gamino RD, CDE, Inpatient Photograph Editor 03/22/2013 10:37 AM onversion Transaction , Provider Unknown - 03/21/2013 11:16 PM PST Progress Notes by Loni Hameed RPH at 03/21/132315 Author: Loni Hameed RPH Service: (none) Author Type: Pharmacist Filed: 03/21/132315 Date of Service: 03/21/132315 Status: Signed Utilities Ground Worker: Loin Hameed RPH (Pharmacist) Clinical Pharmacy Note: Renal [...] [place] | | | | | | [id number] | | | | | | | | +--------+---------+ + + + | 07/26/ | Office | Pulmonology | Navdeep Grande, | | | 2020 | Visit | | [address] | | | | | | [place] | | | | | | [address] | | | | | | | [...] | | | | | INDICATIONS ACUTE WY PNEUMONIA, COPD CONCLUSIONS | | | 1. [...] | posterior mitral valve leaflet. Tricuspid Valve: Beoy-zt-wmwpsglv | | | tricuspid regurgitation present. Tricuspid [...] 72.21 ml D-E Excursion: 1.51 cm E-F Leon: | | | 0.07 m/s EPSS: 0.73 [...] TV A Manjeet: 0.73 m/s TV Dec Leon: | | | 6.25 m/s2 TV Dec Time: 121.02 ms TV E Manjeet: 0.75 m/s TV E/A | | | Ratio: 1.03 Traffic Control Officer: ERASMO Authenticated by: Vinny | | | Marco A NEFF Report Date/Time: 03-22-2013 12:44:09 | | + + + + + | Procedure Note | + + | Jose Hanks Conversion - 12/09/2018 8:13 PM PDT Patient Name: Anupam ESCOBAR of | | : 1970 Performing Physician: Vinny Strickland, | | INDICATIONS A | | CUTE [place] PNEUMONIA, COPD CONCLUSIONS 1. Good pump, moderate [...] posterior mitral valve leaflet.Tricuspid Valve: | | Gvnr-gl-rbqyvmup tricuspid regurgitation present.Tricuspid Valve: There is moderate [...] Major: 4.31 cmRVIDd: 3.51 cmLAAs A2C: 17.11 yk7HZNGK A-L | | A2C: 55.22 mlLALs A2C: 4.50 cmAo Diam: 3.51 cmAV Cusp: 2.42 cmLA Diam: 4.02 | | cmLA/Ao: 1.14%FS: 33.70 %EDV(Teich): 115.90 mlEF(Teich): 62.30 %ESV(Teich): | | 43.69 mlIVSd: 0.89 cmIVSs: 1.28 cmLVIDd: 4.95 cmLVIDs: 3.28 cmLVPWd: 0.89 | | cmLVPWs: 1.50 cmSV(Teich): 72.21 mlD-E Excursion: 1.51 cmE-F Leon: 0.07 | | m/sEPSS: 0.73 cmIVC diameter: 2.47 cmIVC collapse: 1.11 cmIVC % collapse: 52.36 | | %HR: 78.78 BPMAV maxP.53 mmHgAV meanP.92 mmHgAV Vmax: 1.46 m/Viri Vmean: | | 1.06 m/Viri VTI: 33.32 cmAVA Vmax: 3.14 cm2AVA (VTI): 2.80 kt8AGND Dopp: 3.45 | | l/xhnf7OMGA Dopp: 7.15 l/minHR: 76.55 BPMLVOT maxP.44 mmHgLVOT [...] 3.55 m/sTV A Manjeet: 0.73 m/sTV Dec Leon: 6.25 m/s2TV Dec Time: 121.02 msTV E Manjeet: | | 0.75 m/sTV E/A Ratio: 1.03 Traffic Control Officer: KIMuthenticated by: Vinny Strickland | | MDReport [...] | |D-E Excursion: 1.51 cm | |E-F Leon: 0.07 m/s | |EPSS: 0.73 cm | [...] A Manjeet: 0.73 m/s | |TV Dec Leon: 6.25 m/s2 | |TV Dec Time: 121.02 ms | |TV E Manjeet: 0.75 m/s | |TV E/A Ratio: 1.03 | | | |Traffic Control Officer: KVW | |Authenticated by: Vinny Strickland MD [...] 42 years FemaleCT | | CHEST WO [id number]/4/2013 7:10 AM HISTORY: Shortness of breath, hypoxia [...] + + | Historically converted procedure from [facility] environment | EXTERNAL LAB | + + [...] (500), | | | | | | assistant film editor NICK GOMEZ (2) | | | | | | on 03/22/2013 5:26:12 AM | | | | | | | | | | + + + + + + + + | Specimen | + + | | + + + + + | Narrative | Performed At | + + + | Historically converted procedure from [facility] environment | EXTERNAL LAB | + + [...]
--- OUTSIDE RECORDS SUMMARY | ~2019-04-18 | XMS | Encounter Summary ---
Demographics + + + | Address | [address] | | | [place] [address] | + + + | Home Phone [...] | | | | | [place] [address] | | + + + + + | Robson Min | ECON | Unknown | | + + + + + | Isabella Whitehead | ECON | Unknown | | + + + + + Care Team Providers + +------+ + | Care Valuation Manager Name | Role | Phone | [...] | | [place], [place] | [place] [address] | ([facility]) (Primary Dx); | | 2018 | | [address] | [phone] | Pneumonia of both | | | | [phone] | | lungs due to | | | | | Aidan Dumont, | infectious organism, | | | | | MD [address] | unspecified part of | | | | | [place] [address] | lung; Acute | | | | | [phone] | metabolic | | | | | | encephalopathy; | | | | | Dashawn Nettles, | Acute renal failure | | | | | MD [address] | with other specified | | | | | [place] [address] | pathological lesion | | | | | [phone] | in kidney (HCC) | | | [...] TIMOTHY Singleton [address] [place] [address] In 1 week Template: I certify that [...] times per week for 4 wee ks. PEDIATRICIAN for to be seen ___ times per week for ___ weeks. BODY DIE MAKER for to be seen ___ times per week for ___ weeks. HOUSEHOLD ASSISTANT for to b e seen ___ times [...] 08/19/2018 Co-signer: Dashawn Nettles MD NPI # [id number] Date: 08/19/2018 (Only need MD jansen if a PA/OCCUPATIONAL NURSE referring) Examples: ? Clinical finding to support the need for services: Requires usp/physical therapist apy for ? Evidence of Homebound status: [...] have a valid medical license in the [facility] (this wi ll be the physician who will sign Home Health POC) Electronically signed by: Dashawn Nettles 08/19/2018 8:50 [facility] Time spent discharging this patient: 20 minutes spent caring for this patient. documented in this encounter Discharge Instructions AttachmentsThe following attachments cannot be sent through Care Everywhere.Adult, Pneumoni a ([place]ese)Smoking,Health Effects of ([place]ai[place]ese)Smoking Cessation ([place]ese)documented in thi s encounter Medications at Time [...] signed by: Dashawn Nettles 08/18/2018 10:38 [facility] Portions of this chart may [...] signed by: Dashawn Nettles 08/17/2018 8:50 [facility] Portions of this chart may [...] was completed using: -medication list faxed from [employer] Major discrepancies noted: patient was not coherent enough to obtain an accurate medication list from her at the time of admission and subsequently has ended up intubated. Obtained a medication fill history of [employer] and updated the medication from the most recent fill his tory. Patient is currently up to date on her pneumococcal vaccine. PPSV23: 04/04/09, 03/19/13, 01/10/15 PCV13: 03/19/13, 04/24/14 Please see [facility] med list for updated medication list. Electronically [...] signed by: Dashawn Nettles 08/16/2018 8:24 [facility] Portions of this chart may [...] [place] | | | | | | [id number] | | | | | | | | +--------+---------+ + + + | 07/26/ | Office | Pulmonology | Navdeep Grande, | | | 2020 | Visit | | MD [address] | | | | | | [place] | | | | | | [address] | | | | | | | [...] (H) | 70 - 110 mg/dL | [facility] | | | POC | | | [...] + + | [place] [facility] | [address] | [place] [address] | [phone] | | HOSPITAL [facility]ORY | | | [...] + + | [place] [facility] | [address] | [place] [address] | [phone] | | HOSPITAL LAB[facility]ORY | | | [...] + + | [place] [facility] | [address] | [place] [address] | [phone] | | HOSPITAL LAB[facility]ORY | | | [...] + + | [place] [facility] | [address] | [place] [address] | [phone] | | HOSPITAL [facility] | | | [...] + + | [place] [facility] | [address] | [place] [address] | [phone] | | HOSPITAL [facility] | | | [...] + + | [place] [facility] | [address] | [place] [address] | [phone] | | HOSPITAL [facility] | | | [...] + + | [place] [facility] | [address] | [place] [address] | [phone] | | HOSPITAL [facility] | | | [...] + + | [place] [facility] | [address] | [place] [address] | [phone] | | HOSPITAL [facility] | | | [...] | mL/min/1.73m2 | [facility] | [facility] | [facility] | | | [...] + + | [place] [facility] | [address] | [place] [address] | [phone] | | HOSPITAL [facility] | | | [...] + + | [place] [facility] | [address] | [place] [address] | [phone] | | HOSPITAL [facility] | | | [...] + + | [place] [facility] | [address] | [place] [address] | [phone] | | HOSPITAL [facility] | | | [...] + + | [place] [facility] | [address] | [place] [address] | [phone] | | HOSPITAL [facility] | | | [...] + + | [place] [facility] | [address] | [place] [address] | [phone] | | HOSPITAL LAB[facility] | | | [...] + + | [place] [facility] | [address] | [place] [address] | [phone] | | HOSPITAL [facility] | | | [...] + + | [place] [facility] | [address] | [place] [address] | [phone] | | HOSPITAL [facility] | | | [...] + + | [place] [facility] | [address] | [place] [address] | [phone] | | HOSPITAL [facility] | | | [...] + + | [place] [facility] | [address] | [place] [address] | [phone] | | HOSPITAL [facility] | | | [...] | mL/min/1.73m2 | [facility] | | | [facility] | RATE,ESTIMATED | | [facility] | | | | mL/min/1.37n0Aint than | | LABORATORY | | | [...] + + | [place] [facility] | [address] | [place] [address] | [phone] | | HOSPITAL [facility] | | | [...] + + | [facility] | [address] | [place] [address] | [phone] | | HOSPITAL [facility] | | | [...] + + | [place] [facility] | [address] | [place] [address] | [phone] | | HOSPITAL [facility] | | | [...] + + | [place] [facility] | [address] | [place] [address] | [phone] | | HOSPITAL [facility] | | | [...] + + | [place] [facility] | [address] | [place] [address] | [phone] | | HOSPITAL [facility] | | | [...] + + | [facility] | [address] | [place] [address] | [phone] | | HOSPITAL [facility] | | | [...] + + | [place] | [address] | [place] [address] | [phone] | | HOSPITAL [facility] | | | [...] + + | [place] [facility] | [address] | [place] [address] | [phone] | | HOSPITAL [facility] | | | [...] + + | [place] | [address] | [place] [address] | [phone] | | HOSPITAL [facility] | | | [...] + + | [place] [facility] | [address] | [place] [address] | [phone] | | HOSPITAL [facility] | | | [...] + + | [place] [facility] | [address] | [place] [address] | [phone] | | HOSPITAL [facility] | | | [...] | mL/min/1.73m2 | [facility] | | [facility] | | | [...] + + | [facility] | [address] | [place] [address] | [phone] | | HOSPITAL LAB[facility] | | | [...] + + | [facility] | [address] | [place] [address] | [phone] | | HOSPITAL [facility] | | | [...] + + | [place] | [address] | [place] [address] | [phone] | | HOSPITAL [facility] | | | [...] + + | [place] [facility] | [address] | [place] [address] | [phone] | | HOSPITAL [facility] | | | [...] + + | [place] [facility] | [address] | [place] [address] | [phone] | | HOSPITAL LAB[facility] | | | [...] + + | [place] [facility] | [address] | [place] [address] | [phone] | | HOSPITAL LAB[facility] | | | [...] + + | [place] | [address] | [place] [address] | [phone] | | HOSPITAL [facility] | | | [...] + + | [place] [facility] | [address] | [place] [address] | [phone] | | HOSPITAL [facility] | | | [...] + + | [place] [facility] | [address] | [place] [address] | [phone] | | HOSPITAL [facility] | | | [...] + + | [place] [facility] | [address] | [place] [address] | [phone] | | HOSPITAL LAB[facility] | | | [...] + + | [place] [facility] | [address] | [place] [address] | [phone] | | HOSPITAL LAB[facility]ORY | | | | + + + + + ECG 12 lead (08/15/2018 8:53 AM PDT) + + | Specimen | + + | | + + + + + | Narrative | Performed At | + + + | Heart Rate: 78 | [facility] | | bpmQRS Interval: 94 msQT Interval: 436 msQTC Interval: 497 msP [place]: | TRACEMASTER | | 18 degQRS [place]: -32 degT Wave [place]: 37 degP-R Interval: 244 msec- | | | ABNORMAL ECG -SINUS RHYTHMFIRST DEGREE AV BLOCKCONSIDER LEFT ATRIAL | | | ABNORMALITYLEFT AXIS DEVIATIONBORDERLINE PROLONGED QT INTERVAL | | |QRS [place]: -32 deg | | |T Wave [place]: 37 deg | | |P-R Interval: 244 [...] the attending | LABORATORY | | physician. Abgx-qzg-vibjphz drugs may cross react with some methods. [...] + + | [place] [facility] | [address] | [place] [address] | [phone] | | HOSPITAL [facility] | | | [...] - 1.030 | [place] | | | [place] | | | [facility] | | | [...] + + | [place] [facility] | [address] | [place] [address] | [phone] | | HOSPITAL [facility] | | | [...] + + | [place] [facility] | [address] | [place] [address] | [phone] | | HOSPITAL [facility] | | | [...] + + | [facility] | [address] | [place] [address] | [phone] | | HOSPITAL [facility] | | | [...] + + | [facility] | [address] | [place] [address] | [phone] | | HOSPITAL [facility] | | | [...] + + | [place] | [address] | [place] [address] | [phone] | | HOSPITAL [facility] | | | [...] + + | [facility] | [address] | [place] [address] | [phone] | | HOSPITAL [facility] | | | [...] + + | [facility] | [address] | [place] [address] | [phone] | | HOSPITAL [facility] | | | [...] | cutoff point for the diagnosis of [place] is 0.8 ng/mL for the Troponin I | | | method. | | + + + + + + + + | Performing | Address | City/State/Zipcode | Phone Number | | Organization | | | | + + + + + | [facility] | [address] | [place] [address] | [phone] | | HOSPITAL [facility] | | | [...] | 1.20 | 0.60 - 1.30 | [facility] | | | | | mg/dL | [facility] | | | | [facility] | | | | | | LABORATORY | | + + + + + + | eGFR if not | 48 (L)Comment: | >=60 | [place] | | | | GLOMERULAR FILTRATION | mL/min/1.73m2 | [facility] | | [facility] | RATE,ESTIMATED | | [facility]PITAL | | | | mL/min/1.06g0Cdax than | | LABORATORY | | | [...] + + | [facility] | [address] | [place] [address] | [phone] | | HOSPITAL [facility] | | | [...] + + | [facility] [facility] | [address] | [place] [address] | [phone] | | HOSPITAL [facility] | | | [...] | | | | AC, NPO, Daytime 5166-4576 Use | | | | | | | NIGHT DOSE for doses scheduled: | | | | | | | HS, 3AM, Nighttime 5230-0864 | | | | | | | [...] | | | | | dose on [facility] 08/18/18 at 1030, Give | | [...] PDT | | | | | ONCE, [facility] 08/17/18 at 0900, For 1 | | [...] | | | | | dose on [facility] 08/18/18 at 1100 | | AM [...] | | | | First dose on [facility] 08/18/18 at 1030 | | AM [...] | | | | | dose on [facility] 08/18/18 at 2100 | | PM [...] | | | | First dose on [facility] 08/18/18 at 2100, | | PM [...]
--- OUTSIDE RECORDS SUMMARY | ~2019-04-18 | XMS | Encounter Summary ---
Demographics + + + | Address | [address] | | | [place] [address] | + + + | Home Phone [...] | | | | | [place] [address] | | + + + + + Care Team Providers + +------+ + | Care Warp Dyeing Vat Tender Name | Role | Phone | + +------+ + PCP | Unavailable | + +------+ + Encounter Details +--------+ + + + + | Date | Type | Department | Care Team | Description | +--------+ + + + + | 10/22/ | Respiratory | | Other, Faculty | | | 2006 | Therapy | | [phone] | | +--------+ + + + + [...] [facility] | [address] | [place], [place] | | | DIAGNOSTICS - | [address] | [address] | | | PULMONARY FUNCTION | | | | + + + + + documented in this encounter Visit Diagnoses Not on filedocumented in this encounter"
--- OUTSIDE RECORDS SUMMARY | ~2019-04-18 | XMS | Encounter Summary ---
Demographics + + + | Address | [address] | | | [place] [address] | + + + | Home Phone [...] | | | | | [place] [address] | | + + + + + | Robson Min | ECON | Unknown | | + + + + + | Isabella Whitehead | ECON | Unknown | | + + + + + Care Team Providers + +------+ + | Care Embroidery Patternmaker Name | Role | Phone | [...] Zhou PEARSON | | | | | [phone] | [place] [address] | | +--------+ + + + + [...] [place] | | | | | | [address] | | | | | | | | +--------+---------+ + + + | 07/26/ | Office | Pulmonology | Navdeep Grande, | | | 2019 | Visit | | [address] | | | | | | [place] | | | | | | [address] | | | | | | | [...]
--- OUTSIDE RECORDS SUMMARY | ~2019-04-18 | XMS | Encounter Summary ---
Demographics + + + | Address | [address] | | | [place] [address] | + + + | Home Phone [...] | | | | | [place] [address] | | + + + + + | Robson Min | ECON | Unknown | | + + + + + | Isabella Whitehead | ECON | Unknown | | + + + + + Care Team Providers + +------+ + | Care Inspector Precision Assembly Name | Role | Phone | + [...] | | | Pulmonology | obstructive | [address] | [address] | | | | | pulmonary | [address] | [place], | | | | | disease, | [place] | [place] [address] | | | | | unspecified | [address] | Phone: | | | | | ([facility]) | [place] | [phone] | | | | | Procedures | [address] | Fax: | | | | | F/U | Phone: | [phone] | | | | | | [phone] | | | | | | | Fax: | | | | | | | [phone] | | +--------+--------+ + + + + Encounter Details +--------+---------+ + + + | Date | Type | Department | Care Team | Description | +--------+---------+ + + + | 05/23/ | Office | [facility] | Navdeep Grande, | COPD, mild (HCC) | | 2016 | Visit | PULMONARY [address] | MD [address] | (Primary Dx); | | | | Organ [place], | [place], [place] | Alveolar | | | | [place] [address] | [id number] | hypoventilation; | | | | [phone] | | Tobacco use disorder | +--------+---------+ [...] find a support program: Free national quitline: 010-TFAO-DME (860-033-5073). [facility] quit-smoking programs. [place] [employer]: (335.735.6636). [place] (680-052-8146). Support at home is important too. Nonsmokers can offer praise and encouragement. If the smo ker in your life finds it hard to quit, encourage them to keep trying! Xwjp-phh-fnqszhq medicines Nicotine replacement therapymay make quittingeasier. Certain [...] Air booklet from the National Cancer Institutehttp://smokefree.gov/si richar/default/files/pdf/onrclmfk-esn-atr-accessible.pdf 8942-3074 [employer]. [address] [place] [address], [place] [address]. All righ ts reserved. This information is [...] Wrist pain Diabetes mellitus, type 2 ([facility]) Vitamin D deficiency Hypercholesterolemia Hypothyroidism Panic anxiety syndrome IBS (irritable bowel syndrome) Restless leg syndrome Urinary hesitancy Lumbago Nocturia Pyoderma gangreosum-LE Bipolar 1 disorder ([facility]) Hypertension Lymphedema Nausea and vomiting Reflux esophagitis GI bleeding Empyema lung ([facility]) 2005 right Knee pain CHRONIC TENSION [...] mouth 4 times daily., Disp: , Rfl: ugtqcoewto-mrdekrj-ddygeumu (BUTALBITAL COMPOUND/ASA) per tablet, One tablet by [...] MICHELLE | | | | | | [address] | | | | | | | | +--------+---------+ + + + | 07/26/ | Office | Pulmonology | Navdeep Grande, | | | 2019 | Visit | | [address] | | | | | | [place] | | | | | | [address] | | | | | | | [...]
--- OUTSIDE RECORDS SUMMARY | ~2019-04-18 | XMS | Encounter Summary ---
Demographics + + + | Address | [address] | | | [place] [address] | + + + | Home Phone [...] | | | | | [place] [address] | | + + + + + | Robson Min | ECON | Unknown | | + + + + + | Isabella Whitehead | ECON | Unknown | | + + + + + Care Team Providers + +------+ + | Care Entry Analyst Name | Role | Phone [...] | | PULMONARY [address] | M, Scale Manager | | | | | [place], | | | | | | [place] [address] | | | | | | [phone] | | | +--------+ + + + [...] MICHELLE | | | | | | [address] | | | | | | | | +--------+---------+ + + + | 07/26/ | Office | Pulmonology | Navdeep Grande, | | | 2019 | Visit | | MD [address] | | | | | | [place] | | | | | | [address] | | | | | | | | +--------+---------+ + + + documented as of this encounter Visit Diagnoses Not on filedocumented in this encounter"
--- OUTSIDE RECORDS SUMMARY | ~2019-04-18 | XMS | Encounter Summary ---
Demographics + + + | Address | [address] | | | [place] [address] | + + + | Home Phone [...] | | | | | [place] [address] | | + + + + + | Robson Min | ECON | Unknown | | + + + + + | Isabella Whitehead | ECON | Unknown | | + + + + + Care Team Providers + +------+ + | Care Colorer Name | Role | Phone | [...] Medicine | Nocturnal | Neno Thong | [place] [address] | | | Required | | hypoxia | MD S[address] | [place] | | | | | Chronic | [place] | [place], | | | | | obstructive | [facility] | [place] [address] | | | | | pulmonary | [place], [place] | Phone: | | | | | disease, | [address] | [phone] | | | | | unspecified | Phone: | Fax: | | | | | COPD type | [phone] | [phone] | | | | | (HCC) | Fax: | | | | | | Procedures | [phone] | | | | | | [place] [...] + + | 10/12/ | Office | [facility] | Neno Walker | Nocturnal hypoxia | | 2019 | Visit | SLEEP DISORDER [address] | MD [address] | (Primary Dx); | | | | [address] [place] | [address] [place] | Chronic obstructive | | | | [place] [address] | [place] [address] | pulmonary disease, | | | | [phone] | [phone] | unspecified COPD | | | | [...] PDTThis patient was felt to have severe overlock operator sandy obstructive pulmonary disease comes in [...] breaths does not meet criteria for an soda flaker ea or hypopnea. Sleep Architecture: Lights out [...] obstructive apneas, 0 mixed apneas, 0 central soda flaker eas, 22 hypopneas, and 12 Respiratory Effort [...] signed by: Navdeep Grande MD 09/22/2018 14:54 [facility] BP 110/80 | Pulse 95 | [...] [place] | | | | | | [id number] | | | | | | | | +--------+---------+ + + + + + +--------+ + + | Name | Type | Priori | Associated Diagnoses | Order Schedule | | | | ty | | | + + +--------+ + + | * [facility] - | Outpatient | [...]
--- OUTSIDE RECORDS SUMMARY | ~2019-04-18 | XMS | Encounter Summary ---
Demographics + + + | Address | [address] | | | [place] [address] | + + + | Home Phone [...] | | | | | [place] [address] | | + + + + + | Robson Min | ECON | Unknown | | + + + + + | Isabella Whitehead | ECON | Unknown | | + + + + + Care Team Providers + +------+ + | Care Central Office Operator Supervisor Name | Role | Phone | [...] RN | Alveolar | | | | [place], | | hypoventilation; | | | | [place] [address] | | Hypoxemia | | | | [phone] | | | +--------+ + + + [...] MICHELLE | | | | | | [address] | | | | | | | | +--------+---------+ + + + | 07/26/ | Office | Pulmonology | Navdeep Grande, | | | 2019 | Visit | | MD Cely GORE | | | | | | [place] | | | | | | [address] | | | | | | | [...]
--- OUTSIDE RECORDS SUMMARY | ~2019-04-18 | XMS | Encounter Summary ---
Demographics + + + | Address | [address] | | | [place] [address] | + + + | Home Phone [...] | | | | | [place] [address] | | + + + + + Care Team Providers + +------+ + | Care Publicity Expert Name | Role | Phone | + [...] as of this encounter Progress Notes Interface, Barrel Raiser In - 04/28/2006 1:02 AM PSTCLINIC DATE: [...] with Dr. Dawson. MD Letty Lipscomb M.D. Olericulture Professor, Medicine Arthritis and Rheumatic Disease ALBERTO/eddie Electronically signed by Interface, Barrel Raiser In at 01/2007 1:02 AM PSTdocumented in this encounter Plan of Treatment Not on filedocumented as of this encounter Visit Diagnoses Not on filedocumented in this encounter"
--- OUTSIDE RECORDS SUMMARY | ~2019-04-18 | XMS | Encounter Summary ---
Demographics + + + | Address | [address] | | | [place] [address] | + + + | Home Phone [...] | | | | | [place] [address] | | + + + + + Care Team Providers + +------+ + | Care Restaurant Shift Leader Name | Role | Phone | [...] | | | | | Cathryn [place], | | | | | | [place] [address] | | | | | | [phone] | | | | | | | [...] | | + +---------+ + + | [facility] DEPARTMENT OF | | | | | RADIOLOGY | | | | + +---------+ + + documented in this encounter Visit Diagnoses Not on filedocumented in this encounter"
--- OUTSIDE RECORDS SUMMARY | ~2019-04-18 | XMS | Encounter Summary ---
Demographics + + + | Address | [address] | | | [place] [address] | + + + | Home Phone [...] | | | | | [place] [address] | | + + + + + | Robson Min | ECON | Unknown | | + + + + + | Isabella Whitehead | ECON | Unknown | | + + + + + Care Team Providers + +------+ + | Care Intern Retail Name | Role | Phone | + [...] + + | 08/25/ | Telephone | [facility] [place] | Navdeep Grande, | Results (nocturnal | | 2013 | | PULMONARY [address] | MD [address] | oximetry on room | | | | [place], | [place] | air) | | | | [place] [address] | [address] | | | | | [phone] | | | +--------+ + + + [...] MICHELLE | | | | | | [address] | | | | | | | | +--------+---------+ + + + | 07/26/ | Office | Pulmonology | Navdeep Grande, | | | 2019 | Visit | | MD Cely GORE | | | | | | [place] | | | | | | [address] | | | | | | | | +--------+---------+ + + + documented as of this encounter Visit Diagnoses Not on filedocumented in this encounter"
--- OUTSIDE RECORDS SUMMARY | ~2019-04-18 | XMS | Encounter Summary ---
Demographics + + + | Address | [address] | | | [place] [address] | + + + | Home Phone [...] | | | | | [place] [address] | | + + + + + Care Team Providers + +------+ + | Care Sole Trimmer Name | Role | Phone | + +------+ + PCP | Unavailable | + +------+ + Encounter Details +--------+ + + + + | Date | Type | Department | Care Team | Description | +--------+ + + + + | 10/30/ | Respiratory | | Other, Faculty | | | 2006 | Therapy | | [phone] | | +--------+ + + + + [...] Hackett, | | | | | | DIRECTOR OF PARTNER MARKETING | | | | + + + [...] [facility] | [address] | [place], [place] | | | DIAGNOSTICS - | [address] | [address] | | | PULMONARY FUNCTION | | | | + + + + + documented in this encounter Visit Diagnoses Not on filedocumented in this encounter"
--- OUTSIDE RECORDS SUMMARY | ~2019-04-18 | XMS | Encounter Summary ---
Demographics + + + | Address | [address] | | | [place] [address] | + + + | Home Phone [...] | | | | | [place] [address] | | + + + + + Care Team Providers + +------+ + | Care Turf Grower Name | Role | Phone | [...] as of this encounter Progress Notes Interface, Solar Energy Systems Designer In - 04/28/2006 1:02 AM PSTCLINIC DATE: [...] with Dr. Dawson. MD Letty Lipscomb M.D. Clinic Clerk, Medicine Arthritis and Rheumatic Disease ALBERTO/eddie Electronically signed by Interface, Solar Energy Systems Designer In at 01/2007 1:02 AM PSTdocumented in this encounter Plan of Treatment Not on filedocumented as of this encounter Visit Diagnoses Not on filedocumented in this encounter"
--- OUTSIDE RECORDS SUMMARY | ~2019-04-18 | XMS | Encounter Summary ---
Demographics + + + | Address | [address] | | | [place] [address] | + + + | Home Phone [...] | | | | | [place] [address] | | + + + + + | Robson Min | ECON | Unknown | | + + + + + | Isabella Whitehead | ECON | Unknown | | + + + + + Care Team Providers + +------+ + | Care Greaser And Oiler Name | Role | Phone | + [...] Medicine | JESUSITA | Neno Thong | [place] [address] [address] | | | Required | | (obstructive | MD [address] | [address] | | | | | sleep | [facility] | [place], | | | | | apnea) | [facility] | [place] [address] | | | | | Nocturnal | [place], [place] | Phone: | | | | | oxygen | [address] | [phone] | | | | | desaturation | Phone: | Fax: | | | | | E66.2 | [phone] | [phone] | | | | | (ICD-10-CM) | Fax: | | | | | | - 278.03 | [phone] | | | | | | (ICD-9-CM) [...] | | | | | | | ID POLYSOM | | | | | | [...] ion JESUSITA and | [address] | [address] | | | | | COPD | [place], | [place], | | | | | overlap | [place] [address] | [place] [address] | | | | | syndrome | Phone: | Phone: | | | | | ([facility]) | [phone] | [phone] | | | | | | Fax: | Fax: | | | | | | [phone] | [phone] | +--------+ + + + + + Encounter Details +--------+---------+ + + + | Date | Type | Department | Care Team | Description | +--------+---------+ + + + | 07/28/ | Office | [facility] | Neno Walker | JESUS[place] (obstructive | | 2019 | Visit | SLEEP DISORDER [address] | MD [address] | sleep apnea) | | | | [address] [place] | [address] [place] | (Primary Dx); | | | | [place] [address] | [place] [address] | Obesity | | | | [phone] | [phone] | hypoventilation | | | | | [...] mixed | | | | | | ([facility]) | +--------+---------+ + + + Social History [...] Insomnia Severity Index Insomnia Severity Index 21 [place] Sleepiness Scale 1. Sitting and reading 3 [...] [place] | | | | | | [address] | | | | | | | | +--------+---------+ + + + | 07/26/ | Office | Pulmonology | Navdeep Grande, | | | 2019 | Visit | | [address] | | | | | | [place] | | | | | | [address] | | | | | | | [...] + + +--------+ + + | * [facility] Sleep [facility] - | Outpatient | [...]
--- OUTSIDE RECORDS SUMMARY | ~2019-04-18 | XMS | Encounter Summary ---
Demographics + + + | Address | [address] | | | [place] [address] | + + + | Home Phone [...] | | | | | [place] [address] | | + + + + + | Robson Min | ECON | Unknown | | + + + + + | Isabella Whitehead | ECON | Unknown | | + + + + + Care Team Providers + +------+ + | Care Duct Installer Name | Role | Phone | + +------+ + | Bart Ba DO | PCP | | + +------+ + Encounter Details +--------+ + + + + | Date | Type | Department | Care Team | Description | +--------+ + + + + | 10/18/ | Hospital | [facility] | Navdeep Grande, | Abnormal chest CT | | 2012 | Encounter | MED CTR XRAY [address] | MD [address] | | | | | [place] | [place], [place] | | | | | [place] [address] | [address] | | | | | [phone] | | | +--------+ + + + [...] | 0 | 10/08/19 | | | qznbjixhve-aydhjgn-s | every 6 hours as | | [...] [place] | | | | | | [id number] | | | | | | | | +--------+---------+ + + + | 07/26/ Office | Pulmonology | Navdeep Grande, | | | 2019 | Visit | | [address] | | | | | | [place] | | | | | | [address] | | | | | | | [...] At | + + + | [facility] Diagnostic Imaging | [place] | | Department [address] [facility] | [facility] | | [ rep ct [address]] [ rep [facility] | | st zip] Signed | - IMAGING | | | | | Patient Name: CARLINE MIN Physician: | | | RODRI : 1970 Age: 42 Sex: F Unit #: [id number] | | | Exam Date: 10/18/12 Location: [facility] | | | Report #: [id number] Page: | | | %(RAD)RES..mtdd.print.filter("pg") of %(RAD) | | | RES..mtdd.print.filter("tpg") | | | | | | Accession Number: [id number] | | | [facility]ICAL [...] Transcribed Date/Time: 10/18/2012 12:20 | | | Order Packer: <<Signature on | | | File>> | | | Ace Avery MD10/18/12 1439 <Electronically signed by | | | Ace Avery MD> Ace Avery MD 10/18/12 | | | 1144 Order Packer: Maria L Ifitluqmlccuj77/02/13 1220 | | | Navdeep Grande MD | | + + + + + + + + | Performing | Address | City/State/Zipcode | Phone Number | | Organization | | | | + + + + + | [facility] | [address] | [place] | [phone] | | [facility] | | [address] | | | - IMAGING | | | | + + + + + documented in this encounter Visit Diagnoses + + | Diagnosis | + + | Abnormal chest CT Nonspecific (abnormal) findings on radiological and other | | examination of other intrathoracic organs | + + documented in this encounter
--- OUTSIDE RECORDS SUMMARY | ~2019-04-18 | XMS | Encounter Summary ---
Demographics + + + | Address | [address] | | | [place] [address] | + + + | Home Phone [...] | | | | | [place] [address] | | + + + + + | Robson Min | ECON | Unknown | | + + + + + | Isabella Whitehead | ECON | Unknown | | + + + + + Care Team Providers + +------+ + | Care Health Technician Name | Role | Phone | [...] | | | Pulmonology | airway | [address] | [address] | | | | | obstruction, | [address] | [place], | | | | | not | [place] | [place] [address] | | | | | elsewhere | [address] | Phone: | | | | | classified | [place] | [phone] | | | | | Procedures | [address] | Fax: | | | | | [place] OFFICE | Phone: | [phone] | | | | | OUTPATIENT | [phone] | | | | | | VISIT 25 | Fax: | | | | | | MINUTES | [phone] | | +--------+--------+ + + + + Encounter Details +--------+---------+ + + + | Date | Type | Department | Care Team | Description | +--------+---------+ + + + | 04/24/ | Office | [facility] | Navdeep Grande, | Other nonspecific | | 2015 | Visit | PULMONARY [address] | MD [address] | abnormal finding of | | | | [place], | [place], [place] | lung field (Primary | | | | [place] [address] | [address] | Dx); COPD, mild | | | | [phone] | | ([facility]); Chronic | | | | | | [...] not start to improve within 24 hours 9537-480[address] [employer]. [address] [place] [address], [place] [address]. All righ ts reserved. This information is [...] Wrist pain Diabetes mellitus, type 2 ([facility]) Vitamin D deficiency Hypercholesterolemia Hypothyroidism Panic anxiety syndrome IBS (irritable bowel syndrome) Restless leg syndrome Urinary hesitancy Lumbago Nocturia Pyoderma gangreosum-LE Bipolar 1 disorder ([facility]) Hypertension Lymphedema Nausea and vomiting Reflux esophagitis GI bleeding Empyema lung ([facility]) 2005 right Knee pain CHRONIC TENSION [...] 4 times daily., Disp: , Rfl: ; uckngzjxoj-dkzeimm-bovjxgdd (BUTALBITA L COMPOUND/ASA) per tablet, One tablet [...] [place] | | | | | | [id number] | | | | | | | | +--------+---------+ + + + | 07/26/ | Office | Pulmonology | Navdeep Grande, | | | 2019 | Visit | | [address] | | | | | | [place] | | | | | | [address] | | | | | | | [...]
--- OUTSIDE RECORDS SUMMARY | ~2019-04-18 | XMS | Encounter Summary ---
Demographics + + + | Address | [address] | | | [place] [address] | + + + | Home Phone [...] | | | | | [place] [address] | | + + + + + | Robson Min | ECON | Unknown | | + + + + + | Isabella Whitehead | ECON | Unknown | | + + + + + Care Team Providers + +------+ + | Care Horticultural Specialty Grower Inside Name | Role | Phone | + [...] Alessia Salgado | | | | | [place], [place] | [place] [address] | | | | | [address] | [phone] | | | | | [phone] | | | +--------+ + + + [...] MICHELLE | | | | | | [address] | | | | | | | | +--------+---------+ + + + | 07/26/ | Office | Pulmonology | Navdeep Grande, | | | 2019 | Visit | | [address] | | | | | | [place] | | | | | | [address] | | | | | | | [...] LVLs A4C: 7.85 cm | | | Naturopathic Physician: SAL Authenticated by: Braden Isabel Report | [...] MOD A4C: 46.26 mlLVLs A4C: 7.85 cm Naturopathic Physician: | | DHAuthenticated by: Braden IsabelReport Date/Time: [...] |LVLs A4C: 7.85 cm | | | |Naturopathic Physician: DH | |Authenticated by: Braden Isabel | |Report Date/Time: 09-21-2015 16:05:10 | | | |IMPRESSION: | |1. Overall left ventricular systolic function is normal with, an EF between 65 - 70 %. | + + documented in this encounter Visit Diagnoses Not on filedocumented in this encounter"
--- OUTSIDE RECORDS SUMMARY | ~2019-04-18 | XMS | Encounter Summary ---
Demographics + + + | Address | [address] | | | [place] [address] | + + + | Home Phone [...] | | | | | [place] [address] | | + + + + + | Robson Min | ECON | Unknown | | + + + + + | Isabella Whitehead | ECON | Unknown | | + + + + + Care Team Providers + +------+ + | Care Meeting/Event Planner Name | Role | Phone | + [...] | nocturnal pulse | | | | [place], | [place] | oximetry on O2 at 1 | | | | [place] [address] | [address] | l/m) | | | | [phone] | | | +--------+ + + + [...] [place]HELLE | | | | | | [address] | | | | | | | | +--------+---------+ + + + | 07/26/ | Office | Pulmonology | Navdeep Grande, | | | 2019 | Visit | | MD Cely GORE | | | | | | [place] | | | | | | [address] | | | | | | | | +--------+---------+ + + + documented as of this encounter Visit Diagnoses Not on filedocumented in this encounter"
--- OUTSIDE RECORDS SUMMARY | ~2019-04-18 | XMS | Encounter Summary ---
Demographics + + + | Address | [address] | | | [place] [address] | + + + | Home Phone [...] | | | | | [place] [address] | | + + + + + | Robson Min | ECON | Unknown | | + + + + + | Isabella Whitehead | ECON | Unknown | | + + + + + Care Team Providers + +------+ + | Care Batch Still Operator Name | Role | Phone | [...] | Visit | HOSPITAL NEUROLOGY | Theo, PRINT FINISHING WORKER [address] | with aura without | | | | CLINIC [address] | [address] [facility], | status migrainosus | | | | [place], | [place] [address] | (Primary Dx); | | | | [place] [address] | [phone] | Confusion and | | | | [phone] | | disorientation; | | | | | | Diabetic | | | | | | polyneuropathy | | | | | | associated with type | | | | | | 2 diabetes mellitus | | | | | | ([facility]) | +--------+---------+ + + + Social History [...] before each headache. Show this to your [facility] provider to help find the cause [...] Difficulty talking or seeing Date Last Reviewed: 11/18/201519990291-3677 [employer]. [address] [place] [address]. All righ ts reserved. This information is [...] early if it happens. Date Last Reviewed: 08/17/201719999735-2154 [employer]. [address] [place], [place] [address]. All righ ts reserved. This information is [...] Nonsteroidal anti-inflammatory drugs (such as ibuprofen, available wvep-qmg-dhgqsbh) ? Beta-blockers ? Anticonvulsants ? Tricyclic antidepressants [...] of caffeine you consume. Date Last Reviewed: 08/17/201719996870-3782 [employer]. [address] [place] [address]. All righ ts reserved. This information is not intended as a substitute for professional medical care. Always follow your healthcare professional's instructions. documented in this encounter Progress Notes Theo Potter FNP - 09/16/2018 9:45 AM PDT Patient: Kait Min Medical Record: [id number] Date of Services: 09/16/2018 Referring Doctor: TIMOTHY [...] are intact. There is no dysmetria on onihly-ov-kzlc and hibh-jnoz-opod. There are no abnormal or extraneous movements. [...] least 30 minutes three times a w little traverse will help reduce frequency or severity of [...] can contribute to acute confusional states. The tboin win should continue to follow with her [...] prescribed by her PCP. We also discussed jelw-avx-xvspqfa medications which could help with her symptoms [...] [place] | | | | | | [id number] | | | | | | | | +--------+---------+ + + + | 07/26/ | Office | Pulmonology | Navdeep Grande, | | | 2019 | Visit | | [address] | | | | | | [place] | | | | | | [address] | | | | | | | [...] | | Sincerely, Jimbo Samayoa M.D. Neurologist [phone] | | | Electronically signed | | [...]
--- OUTSIDE RECORDS SUMMARY | ~2019-04-18 | XMS | Encounter Summary ---
Demographics + + + | Address | [address] | | | [place] [address] | + + + | Home Phone [...] | | | | | [place] [address] | | + + + + + | Robson Min | ECON | Unknown | | + + + + + | Isabella Whitehead | ECON | Unknown | | + + + + + Care Team Providers + +------+ + | Care Narcotics And/Or Vice Detective Name | Role | Phone | + +------+ + | Bart Ba DO | PCP | | + +------+ + Encounter Details +--------+ + + + + | Date | Type | Department | Care Team | Description | +--------+ + + + + | 08/25/ | Hospital | [facility] | Navdeep Grande, | COPD (chronic | | 2013 | Encounter | MED CTR PULMONARY | MD [address] | obstructive | | | | FUNCTION [address] | [place], [place] | pulmonary disease) | | | | [place], | [address] | ([facility]) | | | | [place] [address] | | | | | | [phone] | | | +--------+ + + + [...] | 0 | 10/08/19 | | | [id number]-wzmfher-x | every 6 hours as | | [...] [place] | | | | | | [address] | | | | | | | | +--------+---------+ + + + | 07/26/ | Office | Pulmonology | Navdeep Grande, | | | 2019 | Visit | | [address] | | | | | | [place] | | | | | | [address] | | | | | | | [...] results section. | | | | | ([facility]) | | + +--------+ + + + [...] signed by: Navdeep Grande MD 08/25/2013 15:49 [facility] | | | [facility] | | + + + [...] by: | | Navdeep Grande MD 08/25/2013 15:49[facility] | |IMPRESSION: Spirometry is consistent with normal physiology. Lung volume testing is consist ent with normal physiology. Diffusion capacity is mildly reduced and was not corrected for m easured hemoglobin. | | | |No prior pulmonary function tests available for comparison | | | |Test performed: 08/25/13 | |Electronically signed by: Navdeep Grande MD 08/25/2013 15:49 | |[facility] | + + documented in this encounter Visit Diagnoses + + | Diagnosis | + + | COPD (chronic obstructive pulmonary disease) (HCC) Chronic airway obstruction, not | | elsewhere classified | + + documented in this encounter"
--- OUTSIDE RECORDS SUMMARY | ~2019-04-18 | XMS | Encounter Summary ---
Demographics + + + | Address | [address] | | | [place] [address] | + + + | Home Phone [...] | | | | | [place] [address] | | + + + + + | Robson Min | ECON | Unknown | | + + + + + | Isabella Whitehead | ECON | Unknown | | + + + + + Care Team Providers + +------+ + | Care Health Coordinator Name | Role | Phone | [...] Radiology | Dizziness | DO Laine | [facility] | | | | | Procedures | [address] | | | | | ECHO | [address] | AVEL AW[address] | | | | | Complete | HEL[place] [address] | [place] | | | | | | [place], [place] | [address] | | | | | | [address] | Phone: | | | | | | Phone: | [phone] | | | | | | [phone] | Fax: | | | | | | Fax: | [phone] | | | | | | [phone] | | + +--------+ + + + [...] | | first degree | [place], | [place], [place] | | | | | Procedures | [place] | [address] Phone: | | | | | consult | [address] | [phone] | | | | | | Phone: | Fax: | | | | | | [phone] | [phone] | | | | | | Fax: | | | | | | | [phone] | | + +--------+ + + + + Encounter Details +--------+---------+ + + + | Date | Type | Department | Care Team | Description | +--------+---------+ + + + | 01/03/ | Office | [facility] | Laine Batista DO | Atrioventricular | | 2019 | Visit | CARDIOLOGY GOLF | [address] | block (Primary Dx); | | | | [address] | [place], [place] | Dizziness; | | | | [place], [place] | [address] | Palpitations; | | | | [address] | | Hypertension, | | | | [phone] | | unspecified type; | | | | | | COPD, moderate | | | | | | (HCC); Rheumatoid | | | | | | arthritis, involving | | | | | | unspecified site, | | | | | | unspecified | | | | | | rheumatoid factor | | | | | | presence ([facility]); | | | | | | Methamphetamine | | | | | | abuse ([facility]); Tobacco | | | | | | [...] Laine Batista, - 01/03/2019 1:00 PM PDT [facility] Cardiology Cardiology Consult Note Reason for [...] decortication changes Acid reflux disease Angina pectoris ([facility]) Arrhythmia Bipolar 1 disorder ([facility]) CHRONIC TENSION HEADACHE Classical migraine without mention of intractable migraine Diabetes mellitus, type 2 ([facility]) Empyema lung ([facility]) 2006 right GI bleeding Hypercholesterolemia Hypertension Hypothyroidism IBS (irritable bowel syndrome) Knee pain Lymphedema Myocardial infarction ([facility]) Nausea and vomiting Nocturia Obesity Panic anxiety syndrome Pneumonia Pyoderma gangreosum-LE RA (rheumatoid arthritis) ([facility]) Followed by Dr. Becerra Rheumologist in [place] Reflux esophagitis Restless leg syndrome Urinary [...] Gluc Sensor (FREESTYLE HUAN 14 DAY SENSOR) [facility] [DISCONTINUED] ergocalciferol (VITAMIN D-2) 50,000 units capsule [...] mouth 2 times daily. Respiratory Therapy Supplies [facility] Portable oxygen concentrator to provide O2 at [...] [place] | | | | | | [address] | | | | | | | | +--------+---------+ + + + | 07/26/ | Office | Pulmonology | Navdeep Grande, | | | 2019 | Visit | | MD [address] | | | | | | [place] | | | | | | [address] | | | | | | | [...] | | | | | by [employer] Read Only, | | | | | | [facility] ([id number]), | | | | | | senior editor Anupam Sanz | | | | [...]
--- OUTSIDE RECORDS SUMMARY | ~2019-04-18 | XMS | Encounter Summary ---
Demographics + + + | Address | [address] | | | [place] [address] | + + + | Home Phone [...] | | | | | [place] [address] | | + + + + + | Robson Min | ECON | Unknown | | + + + + + | Isabella Whitehead | ECON | Unknown | | + + + + + Care Team Providers + +------+ + | Care Case Hardener Name | Role | Phone | + [...] 2019 | | HOSPITAL NEUROLOGY | Theo, [facility] [address] | Authorization | | | | CLINIC [address] | [address] [facility], | (Botox) | | | | DR [place], | [place] [address] | | | | | [place] [address] | [phone] | | | | | [phone] | | | +--------+ + + + [...] [place] | | | | | | [address] | | | | | | | | +--------+---------+ + + + | 07/26/ | Office | Pulmonology | Navdeep Grande, | | | 2020 | Visit | | MD [address] | | | | | | [place] | | | | | | [address] | | | | | | | | +--------+---------+ + + + documented as of this encounter Visit Diagnoses Not on filedocumented in this encounter"
--- OUTSIDE RECORDS SUMMARY | ~2019-04-18 | XMS | Encounter Summary ---
Demographics + + + | Address | [address] | | | [place] [address] | + + + | Home Phone [...] | | | | | [place] [address] | | + + + + + | Robson Min | ECON | Unknown | | + + + + + | Isabella Whitehead | ECON | Unknown | | + + + + + Care Team Providers + +------+ + | Care Apprenticeship Consultant Name | Role | Phone | [...] | | | disease, | [place], | [place] [address] | | | | | unspecified | [place] | Phone: | | | | | (HCC) | [address] | [phone] | | | | | Obstructive | Phone: | Fax: | | | | | sleep apnea | [phone] | [phone] | | | | | (adult) | Fax: | | | | | | (pediatric) | [phone] | | | | | | Procedures | | | | | | | F/U MARITA CURZ | | | | | | | DARRICK | | | | | | | HARJINDER | | | | | | | 07/18/18 | | | +--------+--------+ + + + + Encounter Details +--------+---------+ + + + | Date | Type | Department | Care Team | Description | +--------+---------+ + + + | 07/18/ | Office | [facility] | Navdeep Grande, | COPD exacerbation | | 2019 | Visit | PULMONARY [address] | MD [address] | ([facility]) (Primary Dx); | | | | [place], | [place], [place] | COPD, mild ([facility]); | | | | [place] [address] | [address] | Alveolar | | | | [phone] | | hypoventilation; | | | | [...] worse Dizziness or weakness Date Last Reviewed: 12/19/201519999747-8141 [email or web address]. [address] [place] [address]. All righ ts reserved. This information is [...] Min reports 2 hospitalizations in 2018 at [facility] in [facility]. From the patient's description it so unds [...] Ms. Min apparently was evaluated by her lace stripper, Dr. Becerra, within the last several weeks in [facility]. No co ncerns were identified regarding her [...] 50,000 Units by mouth Once a w [place]., Disp: , Rfl: fluticasone-salmeterol (ADVAIR DISKUS) 250-50 [...] have requested to Ms. Min that her non-[facility] providers forward copies of their assessments for [...] [place] | | | | | | [address] | | | | | | | | +--------+---------+ + + + | 07/26/ | Office | Pulmonology | Navdeep Grande, | | | 2019 | Visit | | [address] | | | | | | [place] | | | | | | [address] | | | | | | | [...]
--- OUTSIDE RECORDS SUMMARY | ~2019-04-18 | XMS | Encounter Summary ---
Demographics + + + | Address | [address] | | | [place] [address] | + + + | Home Phone [...] | | | | | [place] [address] | | + + + + + | Robson Min | ECON | Unknown | | + + + + + | Isabella Whitehead | ECON | Unknown | | + + + + + Care Team Providers + +------+ + | Care Feed Mixer Helper Name | Role | Phone | [...] | (Primary Dx) | | | | [place], | | | | | | [place] [address] | | | | | | [phone] | | | +--------+ + + + [...] [place] | | | | | | [address] | | | | | | | | +--------+---------+ + + + | 07/26/ | Office | Pulmonology | Navdeep Grande, | | | 2019 | Visit | | [address] | | | | | | [place] | | | | | | [address] | | | | | | | | +--------+---------+ + + + documented as of this encounter Results XR Chest PA and Lateral (04/04/2012 12:25 PM PST) + + | Specimen | + + | | + + + + + | Narrative | Performed At | + + + | [facility] | [place] | | Department [address] [facility] | [facility] | | [ rep [address]] [ rep [facility] | | [facility]] Signed | - IMAGING | | | | | Patient Name: CARLINE MIN Physician: | | | RODRI : 1970 Age: 41 Sex: F Unit #: [id number] | | | Exam Date: 04/04/12 Location: [facility] [place] [place] | | | Report #: [id number] Page: | | | %(RAD)RES..mtdd.print.filter("pg") of %(RAD) | | | RES..mtdd.print.filter("tpg") | | | | | | Accession Number: [id number] | | | CHEST X-RAY, 04/04/2012 CLINICAL [...] | | | Transcribed Date/Time: 04/04/2012 15:34 Metal Patternmaker Apprentice: | | | <<Signature on File>> | | | Magdy | | | MD Shaun04/05/12 0055 <Electronically signed by Magdy Dunn MD> | | | Magdy Dunn MD 04/04/12 1225 Metal Patternmaker Apprentice: [employer] | | | Cionqxknjuljd65/17/12 1534 Navdeep Grande MD | | | | | + + + + + + + + | Performing | Address | City/State/Zipcode | Phone Number | | Organization | | | | + + + + + | [facility] | [address] | [place] | [phone] | | [facility] | | [address] | | | - IMAGING | | | | + + + + + documented in this encounter Visit Diagnoses + + | Diagnosis | + + | Abnormal chest CT - Primary Nonspecific (abnormal) findings on radiological and other | | examination of other intrathoracic organs | + + documented in this encounter
--- OUTSIDE RECORDS SUMMARY | ~2019-04-18 | XMS | Encounter Summary ---
Demographics + + + | Address | [address] | | | [place] [address] | + + + | Home Phone [...] | | | | | [place] [address] | | + + + + + | Robson Min | ECON | Unknown | | + + + + + | Isabella Whitehead | ECON | Unknown | | + + + + + Care Team Providers + +------+ + | Care Intelligence Support Officer Name | Role | Phone | [...] Zhou [address]ARSON | | | | | [phone] | [place] [address] | | +--------+ + + + + [...] [place] | | | | | | [address] | | | | | | | | +--------+---------+ + + + | 07/26/ | Office | Pulmonology | Navdeep Grande, | | | 2019 | Visit | | [address] | | | | | | [place] | | | | | | [address] | | | | | | | [...]
--- OUTSIDE RECORDS SUMMARY | ~2019-04-18 | XMS | Encounter Summary ---
Demographics + + + | Address | [address] | | | [place] [address] | + + + | Home Phone [...] | | | | | [place] [address] | | + + + + + | Robson Min | ECON | Unknown | | + + + + + | Isabella Whitehead | ECON | Unknown | | + + + + + Care Team Providers + +------+ + | Care Strong Nitric Operator Name | Role | Phone | [...] | Abnormal | MD Navdeep | [address] | | | | | chest CT | [address] | [place], | | | | | Procedures | [address] | [place] [address] | | | | | CT Chest wo | [place], | Phone: | | | | | [place]rast | [place] [address] | [phone] | | | | | | Phone: | Fax: | | | | | | [phone] | [phone] | | | | | | Fax: | | | | | | | [phone] | | +--------+--------+ + + + + [...] | Abnormal | MD Navdeep | [address] | | | | | chest CT | [address] | [place], | | | | | Procedures | [address] | [place] [address] | | | | | CT Chest wo | [place], | Phone: | | | | | [place]rast | [place] [address] | [phone] | | | | | | Phone: | Fax: | | | | | | [phone] | [phone] | | | | | | Fax: | | | | | | | [phone] | | +--------+--------+ + + + + Encounter Details +--------+ + + + + | Date | Type | Department | Care Team | Description | +--------+ + + + + | 04/24/ | Hospital | [facility] | Navdeep Grande, | Abnormal chest CT | | 2015 | Encounter | MED CTR CT [address] | MD [address] | | | | | [place], | [place], [place] | | | | | [place] [address] | [address] | | | | | [phone] | | | +--------+ + + + [...] | 0 | 10/08/19 | | | vmbvwdhjzk-enohfhm-k | every 6 hours as | | [...] [place] | | | | | | [address] | | | | | | | | +--------+---------+ + + + | 07/26/ | Office | Pulmonology | Navdeep Grande, | | | 2019 | Visit | | [address] | | | | | | [place] | | | | | | [id number] | | | | | | | [...] + | MISCELLANEOUS LAB | | | [phone] | + +---------+ + + | MISCELANIOUS LAB | | | [phone] | + +---------+ + + documented in this encounter Visit Diagnoses + + | Diagnosis | + + | Abnormal chest CT Nonspecific (abnormal) findings on radiological and other | | examination of other intrathoracic organs | + + documented in this encounter"
--- OUTSIDE RECORDS SUMMARY | ~2019-04-18 | XMS | Encounter Summary ---
Demographics + + + | Address | [address] | | | [place] [address] | + + + | Home Phone [...] | | | | | [place] [address] | | + + + + + | Robson Min | ECON | Unknown | | + + + + + | Isabella Whitehead | ECON | Unknown | | + + + + + Care Team Providers + +------+ + | Care Technical Training Specialist Name | Role | Phone | [...] | Abnormal | MD Navdeep | [address] | | | | | chest CT | [address] | [place], | | | | | Procedures | [place] | [place] [address] | | | | | CT Chest wo | [place], | Phone: | | | | | Contrast | [place] [address] | [phone] | | | | | | Phone: | Fax: | | | | | | [phone] | [phone] | | | | | | Fax: | | | | | | | [phone] | | +--------+--------+ + + + + [...] | Abnormal | MD Navdeep | [address] | | | | | chest CT | [address] | [place], | | | | | Procedures | [place] | [place] [address] | | | | | CT Chest wo | [place], | Phone: | | | | | Contrast | [place] [address] | [phone] | | | | | | Phone: | Fax: | | | | | | [phone] | [phone] | | | | | | Fax: | | | | | | | [phone] | | +--------+--------+ + + + + Encounter Details +--------+ + + + + | Date | Type | Department | Care Team | Description | +--------+ + + + + | 04/24/ | Hospital | [facility] | Navdeep Grande, | Abnormal chest CT | | 2015 | Encounter | MED CTR CT [address] | MD [address] | | | | | [place], | [place], [place] | | | | | [place] [address] | [address] | | | | | [phone] | | | +--------+ + + + [...] | 0 | 10/08/19 | | | mzbmpqewjl-wmrdxye-j | every 6 hours as | | [...] [place] | | | | | | [address] | | | | | | | | +--------+---------+ + + + | 07/26/ | Office | Pulmonology | Navdeep Grande, | | | 2019 | Visit | | [address] | | | | | | [place] | | | | | | [id number] | | | | | | | [...] + | MISCELLANEOUS LAB | | | [phone] | + +---------+ + + | MISCELANIOUS LAB | | | [phone] | + +---------+ + + documented in this encounter Visit Diagnoses + + | Diagnosis | + + | Abnormal chest CT Nonspecific (abnormal) findings on radiological and other | | examination of other intrathoracic organs | + + documented in this encounter"
--- OUTSIDE RECORDS SUMMARY | ~2019-04-18 | XMS | Encounter Summary ---
Demographics + + + | Address | [address] | | | [place] [address] | + + + | Home Phone [...] | | | | | [place] [address] | | + + + + + | Robson Min | ECON | Unknown | | + + + + + | Isabella Whitehead | ECON | Unknown | | + + + + + Care Team Providers + +------+ + | Care Veneer Jointer Helper Name | Role | Phone | + +------+ + | Bart Ba DO | PCP | | + +------+ + Encounter Details +--------+ + + + + | Date | Type | Department | Care Team | Description | +--------+ + + + + | 04/04/ | Hospital | [facility] | Navdeep Grande, | Abnormal chest CT | | 2011 - | Encounter | MED CTR XRAY [address] | MD [address] | | | | | [place] | [place], [place] | | | 04/06/ | | [place] [address] | [address] | | | 2011 | | [phone] | | | +--------+ + + + [...] | 0 | 10/08/19 | | | ywkhwfpulh-xitohtt-b | every 6 hours as | | [...] [place] | | | | | | [address] | | | | | | | | +--------+---------+ + + + | 07/26/ | Office | Pulmonology | Navdeep Grande, | | | 2019 | Visit | | [address] | | | | | | [place] | | | | | | [address] | | | | | | | [...] [facility] | [facility] | | Department [address] [facility] | | [ rep [address]] [ rep [facility] | | [facility]] Signed | - IMAGING | | | | | Patient Name: CARLINE MIN Physician: | | | RODRI : 1970 Age: 41 Sex: F Unit #: [id number] | | | Exam Date: 04/04/12 Location: [facility] [place], [place] | | | Report #: [id number] Page: | | | %(RAD)RES..mtdd.print.filter("pg") of %(RAD) | | | RES..mtdd.print.filter("tpg") | | | | | | Accession Number: [id number] | | | CHEST X-RAY, 04/04/2012 CLINICAL [...] | | | Transcribed Date/Time: 04/04/2012 15:34 District Administrative Assistant: | | | <<Signature on File>> | | | Magdy | | | MD Shaun04/05/12 0055 <Electronically signed by Magdy Dunn MD> | | | Magdy Dunn MD 04/04/12 1225 District Administrative Assistant: [employer] | | | Vyhlepzewhjqn83/17/12 1534 Navdeep Grande MD | | | | | + + + + + + + + | Performing | Address | City/State/Zipcode | Phone Number | | Organization | | | | + + + + + | [facility] | [address] | [place] | [phone] | | [facility] | | [address] | | | - IMAGING | | | | + + + + + documented in this encounter Visit Diagnoses + + | Diagnosis | + + | Abnormal chest CT Nonspecific (abnormal) findings on radiological and other | | examination of other intrathoracic organs | + + documented in this encounter
--- OUTSIDE RECORDS SUMMARY | ~2019-04-18 | XMS | Encounter Summary ---
Demographics + + + | Address | [address] | | | [place] [address] | + + + | Home Phone [...] | | | | | [place] [address] | | + + + + + | Robson Min | ECON | Unknown | | + + + + + | Isabelal Whitehead | ECON | Unknown | | + + + + + Care Team Providers + +------+ + | Care Corporate Services Manager Name | Role | Phone [...] [address] | | | | | [place] [address] | | | | | | [phone] | | | +--------+ + + + [...] [place] | | | | | | [id number] | | | | | | | | +--------+---------+ + + + | 07/26/ | Office | Pulmonology | Navdeep Grande, | | | 2019 | Visit | | [address] | | | | | | [place] | | | | | | [address] | | | | | | | | +--------+---------+ + + + documented as of this encounter Visit Diagnoses Not on filedocumented in this encounter"
--- OUTSIDE RECORDS SUMMARY | ~2019-04-18 | XMS | Encounter Summary ---
Demographics + + + | Address | [address] | | | [place] [address] | + + + | Home Phone [...] | | | | | [place] [address] | | + + + + + Care Team Providers + +------+ + | Care Tile Trimmer Name | Role | Phone | + +------+ + PCP | Unavailable | + +------+ + Encounter Details +--------+ + + + + | Date | Type | Department | Care Team | Description | +--------+ + + + + | 10/29/ | Respiratory | | Other, Faculty | | | 2006 | Therapy | | [phone] | | +--------+ + + + + [...] [facility] | [address] | [place] | | | DIAGNOSTICS - | [address] | [address] | | | PULMONARY FUNCTION | | | | + + + + + documented in this encounter Visit Diagnoses Not on filedocumented in this encounter"
--- OUTSIDE RECORDS SUMMARY | ~2019-04-18 | XMS | Encounter Summary ---
Demographics + + + | Address | [address] | | | [place] [address] | + + + | Home Phone [...] | | | | | [place] [address] | | + + + + + [...] + + | 09/22/ | Hospital | [facility] | Navdeep Grande, | COPD, mild (HCC) | | 2019 | Encounter | MED CTR PULMONARY | MD [address] | | | | | FUNCTION [address] | [place], [place] | | | | | [place], | [address] | | | | | [place] [address] | | | | | | [phone] | Neno Walker | | | | | | MD Srinivas [address] | | | | | | [address] [place] | | | | | | [place] [address] | | | | | | [phone] | | | | | | | [...] [place] | | | | | | [address] | | | | | | | | +--------+---------+ + + + | 07/26/ | Office | Pulmonology | Navdeep Grande, | | | 2019 | Visit | | MD [address]ely [address]ORE | | | | | | [place] | | | | | | [address] | | | | | | | [...] MD 09/22/2018 | | | 14:54[facility] | | |physiology. Lung volume testing [...] MD 09/22/2018 14:54 | | |[facility] | | + + + documented in this encounter Visit Diagnoses + + | Diagnosis | + + | COPD, mild (HCC) Chronic airway obstruction, not elsewhere classified | + + documented in this encounter"
--- OUTSIDE RECORDS SUMMARY | ~2019-04-18 | XMS | Encounter Summary ---
Demographics + + + | Address | [address] | | | [place] [address] | + + + | Home Phone [...] | | | | | [place] [address] | | + + + + + Care Team Providers + +------+ + | Care Label Stamper Name | Role | Phone | + +------+ + PCP | Unavailable | + +------+ + Encounter Details +--------+ + + + + | Date | Type | Department | Care Team | Description | +--------+ + + + + | 11/03/ | Respiratory | | Other, Faculty | | | 2006 | Therapy | | [phone] | | +--------+ + + + + [...] | | | Y | Edwina Edwards, SIDE HEMMER | | | | + + + [...] [facility] | [address] | [place], [place] | | | DIAGNOSTICS - | [address] | [address] | | | PULMONARY FUNCTION | | | | + + + + + documented in this encounter Visit Diagnoses Not on filedocumented in this encounter"
--- OUTSIDE RECORDS SUMMARY | ~2019-04-18 | XMS | Encounter Summary ---
Demographics + + + | Address | [address] | | | [place] [address] | + + + | Home Phone | | + + + | Preferred Language | Unknown | + + + | Marital Status | Single | + + + | Moravian Affiliation | CHR | + + + [...] | | | | | [place] [address] | | + + + + + Care Team Providers + +------+ + | Care Irrigationist Name | Role | Phone | + +------+ + PCP | Unavailable | + +------+ + Encounter Details +--------+ + + + + | Date | Type | Department | Care Team | Description | +--------+ + + + + | 10/29/ | Respiratory | | Other, Faculty | | | 2006 | Therapy | | [phone] | | +--------+ + + + + [...] [facility] | [address] | [place], [place] | | | DIAGNOSTICS - | [address] | [address] | | | PULMONARY FUNCTION | | | | + + + + + documented in this encounter Visit Diagnoses Not on filedocumented in this encounter"
--- OUTSIDE RECORDS SUMMARY | ~2019-04-18 | XMS | Encounter Summary ---
Demographics + + + | Address | [address] | | | [place] [address] | + + + | Home Phone [...] | | | | | [place] [address] | | + + + + + | Robson Min | ECON | Unknown | | + + + + + | Isabella Whitehead | ECON | Unknown | | + + + + + Care Team Providers + +------+ + | Care Market Development Trainer Name | Role | Phone | [...] | Abnormal | MD Navdeep | [address] | | | | | chest CT | [address] | [place], | | | | | Procedures | [address] | [place] [address] | | | | | CT Chest wo | [place], | Phone: | | | | | Contrast | [place] [address] | [phone] | | | | | | Phone: | Fax: | | | | | | [phone] | [phone] | | | | | | Fax: | | | | | | | [phone] | | +--------+--------+ + + + + Reason for Visit +--------+ + | Reason | Comments | +--------+ + | COPD | | +--------+ + Encounter Details +--------+---------+ + + + | Date | Type | Department | Care Team | Description | +--------+---------+ + + + | 09/06/ | Office | [facility] | Navdeep Grande, | Abnormal chest CT | | 2013 | Visit | PULMONARY [address] | MD [address] | (Primary Dx); | | | | [place], | [place], [place] | Chronic bronchitis; | | | | [place] [address] | [address] | Other nonspecific | | | | [phone] | | abnormal finding of | | [...] Lumbago Nocturia Pyoderma gangreosum-LE Bipolar 1 disorder ([facility]) Hypertension Lymphedema Nausea and vomiting Reflux esophagitis GI bleeding Empyema lung ([facility]) 2005 right Knee pain CHRONIC [...] 4 times daily., Disp: , Rfl: ; iwqqmybalz-geavfgr-fgneflxu (BUTALBITA L COMPOUND/ASA) per tablet, One tablet [...] [place]HEL[place] | | | | | | [address] | | | | | | | | +--------+---------+ + + + | 07/26/ | Office | Pulmonology | Navdeep Grande, | | | 2019 | Visit | | MD Cely GORE | | | | | | [place] | | | | | | [id number] | | | | | | | [...] + | MISCELLANEOUS LAB | | | [phone] | + +---------+ + + | MISCELANIOUS LAB | | | [phone] | + +---------+ + + documented in [...]
--- OUTSIDE RECORDS SUMMARY | ~2019-04-18 | XMS | Encounter Summary ---
Demographics + + + | Address | [address] | | | [place] [address] | + + + | Home Phone [...] | | | | | [place] [address] | | + + + + + | Robson Min | ECON | Unknown | | + + + + + | Isabella Whitehead | ECON | Unknown | | + + + + + Care Team Providers + +------+ + | Care Urogynecology Physician Name | Role | Phone | + +------+ + | Bart Ba DO | PCP | | + +------+ + Encounter Details +--------+ + + + + | Date | Type | Department | Care Team | Description | +--------+ + + + + | 11/19/ | Hospital | [facility] | Navdeep Grande, | COPD, mild (HCC) | | 2018 | Encounter | MED CTR PULMONARY | MD [address] | | | | | FUNCTION [address] | [place], [place] | | | | | [place], | [address] | | | | | [place] [address] | | | | | | [phone] | | | +--------+ + + + [...] | | | | | | [place] | | | | | | [address] | | | | | | | | +--------+---------+ + + + | 07/26/ | Office | Pulmonology | Navdeep Grande, | | | 2019 | Visit | | MD [address] | | | | | | [place] | | | | | | [address] | | | | | | | [...] | signed by: Navdeep Grande MD 11/19/2017 12:24[facility] | | |physiology. Lung volume [...] Grande MD 11/19/2017 12:24 | | |[facility] | | + + + documented in this encounter Visit Diagnoses + + | Diagnosis | + + | COPD, mild (HCC) Chronic airway obstruction, not elsewhere classified | + + documented in this encounter"
--- OUTSIDE RECORDS SUMMARY | ~2019-04-18 | XMS | Encounter Summary ---
Demographics + + + | Address | [address] | | | [place] [address] | + + + | Home Phone [...] | | | | | [place] [address] | | + + + + + | Robson Min | ECON | Unknown | | + + + + + | Isabella Whitehead | ECON | Unknown | | + + + + + Care Team Providers + +------+ + | Care Wrist Liner Name | Role | Phone | + [...] | | | | | pain, | [address] | [address] | | | | | generalized | [place] | [place], | | | | | follow up | [place] | [place] [address] | | | | | abd pain, | [address] | Phone: | | | | | nause & | [place] | [phone] | | | | | vomiting/per | [address] | Fax: | | | | | swathi/pcp | Phone: | [phone] | | | | | shade/moda/ | [phone] | | | | | | called for | Fax: | | | | | | referral | [phone] | | | | | | 10/04/13nns [...] + + | 11/01/ | Office | [facility] | Cecilio Amato MD | Nausea & vomiting | | 2014 | Visit | GASTROENTEROLOGY | [address] | (Primary Dx); IBS | | | | [address] [facility] | [place] | (irritable bowel | | | | [address] [address] | [address] | syndrome) | | | | [address] | [phone] | | | | | [phone] | | | +--------+---------+ + + + [...] 50 mg by mouth 4 times daily. jhrqsbddaq-twpxmfz-nqlspvab (BUTALBITAL COMPOUND/ASA) per tablet One tablet by [...] Wrist pain Diabetes mellitus, type 2 ([facility]) Vitamin D deficiency Hypercholesterolemia Hypothyroidism Panic anxiety syndrome IBS (irritable bowel syndrome) Restless leg syndrome Urinary hesitancy Lumbago Nocturia Pyoderma gangreosum-LE Bipolar 1 disorder ([facility]) Hypertension Lymphedema Nausea and vomiting Reflux esophagitis GI bleeding Empyema lung ([facility]) 2005 right Knee pain CHRONIC [...] Ramos MD - 0 11/01/2013 12:00 AM [facility] GASTR[facility]Y [address] [facility] [address] [place] [address] FAX: [phone] OFFICE VISIT OUTPATIENT GI FOLLOWUP CHIEF COMPLAINT: [...] I encouraged her to speak to her music engraver regarding finding an alternative medication and discontinuing [...] discuss stopping azathioprine and hydrocodone, with her music engraver. Cecilio Amato MD / RC JOB #: [id number] signed by Cecilio Amato MD at 11/02/2013 [...] [place] | | | | | | [address] | | | | | | | | +--------+---------+ + + + | 07/26/ | Office | Pulmonology | Navdeep Grande, | | | 2019 | Visit | | [address] | | | | | | [place] | | | | | | [address] | | | | | | | | +--------+---------+ + + + documented as of this encounter Visit Diagnoses + + | Diagnosis | + + | Nausea & vomiting - Primary Nausea with vomiting | + + | IBS (irritable bowel syndrome) Irritable bowel syndrome | + + documented in this encounter"
--- OUTSIDE RECORDS SUMMARY | ~2019-04-18 | XMS | Encounter Summary ---
Demographics + + + | Address | [address] | | | [place] [address] | + + + | Home Phone [...] | | | | | [place] [address] | | + + + + + | Robson Min | ECON | Unknown | | + + + + + | Isabella Whitehead | ECON | Unknown | | + + + + + Care Team Providers + +------+ + | Care Contact Worker Name | Role | Phone | [...] + + | 06/05/ | Telephone | [facility] [place] | Navdeep Grande, | Results | | 2015 | | PULMONARY [address] | MD [address] | | | | | [place], | [place] | | | | | [place] [address] | [id number] | | | | | [phone] | | | +--------+ + + + [...] [place] | | | | | | [address] | | | | | | | | +--------+---------+ + + + | 07/26/ | Office | Pulmonology | Navdeep Grande, | | | 2019 | Visit | | MD [address] | | | | | | [place] | | | | | | [address] | | | | | | | [...]
--- OUTSIDE RECORDS SUMMARY | ~2019-04-18 | XMS | Encounter Summary ---
Demographics + + + | Address | [address] | | | [place] [address] | + + + | Home Phone [...] | | | | | [place] [address] | | + + + + + | Robson Min | ECON | Unknown | | + + + + + | Isabella Whitehead | ECON | Unknown | | + + + + + Care Team Providers + +------+ + | Care Temporary Administrative Assistant Name | Role | Phone | + +------+ + | Bart Ba DO | PCP | | + +------+ + Encounter Details +--------+ + + + + | Date | Type | Department | Care Team | Description | +--------+ + + + + | 03/15/ | Hospital | [facility] | Jimbo Samayoa MD | Disorientation; | | 2017 | Encounter | HOSPITAL RESPIRATORY | [address] | Dizziness | | | | THERAPY [address] | [place] | | | | | [place] | [address] | | | | | [address] | | | | | | [phone] | | | +--------+ + + + [...] 9 | | MISCIndications: | 550mlIPAP 19 [id number] | | | | | | Alveolar | 9 [id number] | | | | | | hypoventilation, [...] [place] | | | | | | [address] | | | | | | | | +--------+---------+ + + + | 07/26/ | Office | Pulmonology | Navdeep Grande, | | | 2019 | Visit | | [address] | | | | | | [place] | | | | | | [address] | | | | | | | [...]
--- OUTSIDE RECORDS SUMMARY | ~2019-04-18 | XMS | Encounter Summary ---
Demographics + + + | Address | [address] | | | [place] [address] | + + + | Home Phone [...] + + + | Author | [facility] | + + + | Organization | [facility] | + + + | Address | Unknown | + + + | Phone | Unavailable | + + + Support + + + + + | Name | Relationship | Address | Phone | + + + + + | Scot Johnson | ECON | [address] | | | | | [place] [address] | | + + + + + Care Team Providers + +------+ + | Care Rag Willow Operator Name | Role | Phone | [...] | | | | Mailcode: L353 | [place], [place] | | | | | [facility] | [address] | | | | | [place], [place] | [phone] | | | | | [address] | | | | | | [phone] | | | +--------+ + + + [...]
--- OUTSIDE RECORDS SUMMARY | ~2019-04-18 | XMS | Encounter Summary ---
Demographics + + + | Address | [address] | | | [place] [address] | + + + | Home Phone [...] | | | | | [place] [address] | | + + + + + | Robson Min | ECON | Unknown | | + + + + + | Isabella Whitehead | ECON | Unknown | | + + + + + Care Team Providers + +------+ + | Care Kohinoor Operator Name | Role | Phone | [...] (Call Back) | | 2019 | | [facility] | [facility] [address] | | | | | CLINIC [address] | [address] [facility], | | | | | [address] [place], | [place] [address] | | | | | [place] [address] | [phone] | | | | | [phone] | | | +--------+ + + + [...] [place] | | | | | | [id number] | | | | | | | | +--------+---------+ + + + | 07/26/ | Office | Pulmonology | Navdeep Grande, | | | 2019 | Visit | | [address] | | | | | | [place] | | | | | | [address] | | | | | | | | +--------+---------+ + + + documented as of this encounter Visit Diagnoses Not on filedocumented in this encounter"
--- OUTSIDE RECORDS SUMMARY | ~2019-04-18 | XMS | Encounter Summary ---
Demographics + + + | Address | [address] | | | [place] [address] | + + + | Home Phone [...] | | | | | [place] [address] | | + + + + + Care Team Providers + +------+ + | Care Screen Printing Equipment Setter Name | Role | Phone | + +------+ + PCP | Unavailable | + +------+ + Encounter Details +--------+ + + + + | Date | Type | Department | Care Team | Description | +--------+ + + + + | 11/01/ | Respiratory | | Other, Faculty | | | 2006 | Therapy | | [phone] | | +--------+ + + + + [...] | | | Y | Lisa Wahl, ASSURANCE SENIOR | | | | + + + [...] [facility] | [address] | [place], [place] | | | DIAGNOSTICS - | [address] | [address] | | | PULMONARY FUNCTION | | | | + + + + + documented in this encounter Visit Diagnoses Not on filedocumented in this encounter"
--- OUTSIDE RECORDS SUMMARY | ~2019-04-18 | XMS | Encounter Summary ---
Demographics + + + | Address | [address] | | | [place] [address] | + + + | Home Phone [...] | | | | | [place] [address] | | + + + + + Care Team Providers + +------+ + | Care Green Inspector Name | Role | Phone | + +------+ + PCP | Unavailable | + +------+ + Encounter Details +--------+ + + + + | Date | Type | Department | Care Team | Description | +--------+ + + + + | 10/31/ | Respiratory | | Other, Faculty | | | 2006 | Therapy | | [phone] | | +--------+ + + + + [...] Cabrera, | | | | | | WIRE FENCE ERECTOR | | | | + + + [...] [facility] | [address] | [place] | | | DIAGNOSTICS - | [address] | [address] | | | PULMONARY FUNCTION | | | | + + + + + documented in this encounter Visit Diagnoses Not on filedocumented in this encounter"
--- OUTSIDE RECORDS SUMMARY | ~2019-04-18 | XMS | Encounter Summary ---
Demographics + + + | Address | [address] | | | [place] [address] | + + + | Home Phone [...] | | | | | [place] [address] | | + + + + + | Robson Min | ECON | Unknown | | + + + + + | Isabella Whitehead | ECON | Unknown | | + + + + + Care Team Providers + +------+ + | Care Suction Operator Name | Role | Phone | [...] | | | | reflux | [address] | | | | | Abdominal | BLVD | [address] | | | | | pain, | [place], [place] | AVE | | | | | generalized | [address] | [place] | | | | | Procedures | Phone: | [address] | | | | | [place] Gastric | [phone] | Phone: | | | | | Emptying | Fax: | [phone] | | | | | | [phone] | Fax: | | | | | | | [phone] | +--------+--------+ + + + + Reason [...] | | | | | bowel | [address] | [address] | | | | | syndrome | [address] | [place], | | | | | Other | [place] | [place] [address] | | | | | specified | [address] | Phone: | | | | | gastritis | [place], [place] | [phone] | | | | | with | [address] | Fax: | | | | | hemorrhage | Phone: | [phone] | | | | | Unspecified | [phone] | | | | | | gastritis | Fax: | | | | | | and | [phone] | | | | | | gastroduoden [...] + + | 09/20/ | Office | [facility] | Cecilio Amato MD | Abdominal pain, | | 2013 | Visit | GASTROENTEROLOGY | [address] | generalized (Primary | | | | [address] [facility] | [place] | Dx); Esophageal | | | | [address] | [address] | reflux | | | | [address] | [phone] | | | | | [phone] | | | +--------+---------+ + + + [...] 50 mg by mouth 4 times daily. vkqjexkvbj-ncxmsgl-wsgjhkjr (BUTALBITAL COMPOUND/ASA) per tablet One tablet by [...] pain Diabetes mellitus, type 2 ([facility]) Vitamin D deficiency Hypercholesterolemia Hypothyroidism Panic anxiety syndrome IBS (irritable bowel syndrome) Restless leg syndrome Urinary hesitancy Lumbago Nocturia Pyoderma gangreosum-LE Bipolar 1 disorder ([facility]) Hypertension Lymphedema Nausea and vomiting Reflux esophagitis GI bleeding Empyema lung ([facility]) 2005 right Knee pain CHRONIC TENSION [...] Ramos MD - 0 09/20/2013 12:00 AM [facility] GASTROENTEROLOGY [address] [address] FAX: [phone] OFFICE VISIT CHIEF COMPLAINT: Abdominal pain. HISTORY [...] Cecilio Amato MD / SABIHA JOB #: [id number] signed by Cecilio Amato MD at 09/20/2013 [...] [place]HEL[place] | | | | | | [address] | | | | | | | | +--------+---------+ + + + | 07/26/ | Office | Pulmonology | Navdeep Grande, | | | 2019 | Visit | | [address] | | | | | | [place] | | | | | | [address] | | | | | | | [...]
--- OUTSIDE RECORDS SUMMARY | ~2019-04-18 | XMS | Encounter Summary ---
Demographics + + + | Address | [address] | | | [place] [address] | + + + | Home Phone [...] | | | | | [place] [address] | | + + + + + Care Team Providers + +------+ + | Care Electronic Equipment Maint Tech Name | Role | Phone | [...] | Transcriptions | + + | Interface, Double Spindle Shaper Operator In - 11/19/2005 2:03 AM PDT | | [id number] | | [id number] [place] [id number] | | | | Date: 10/27/2005 | | | | Attending Surgeon: Anibal Starr M.D. | | | | Fisheries Officer(s): Valerie Stone | | Ayo Calabrese MD [...] ribs | | were reapproximated with interrupted byfdvx-ca-xvglq #2 Vicryls. The | | serratus and [...] | | PS / HS | | [id number] / [id number] / [id number] / [id number] | | | | | | | | | | | | Electronically signed by Anibal Starr 11-18-2005 08:31:32 AM | + + documented in this encounter Visit Diagnoses Not on filedocumented in this encounter"
--- OUTSIDE RECORDS SUMMARY | ~2019-04-18 | XMS | Encounter Summary ---
Demographics + + + | Address | [address] | | | [place] [address] | + + + | Home Phone [...] | | | | | [place] [address] | | + + + + + | Robson Min | ECON | Unknown | | + + + + + | Isabella Whitehead | ECON | Unknown | | + + + + + Care Team Providers + +------+ + | Care Blister Rust Eradicator Name | Role | Phone | + [...] Medicine | Nocturnal | Neno Thong | [place] [address] | | | Required | | hypoxia | MD Srin[address] | [place] | | | | | Chronic | [place] | [place], | | | | | obstructive | [facility] | [place] [address] | | | | | pulmonary | [place], [place] | Phone: | | | | | disease, | [address] | [phone] | | | | | unspecified | Phone: | Fax: | | | | | COPD type | [phone] | [phone] | | | | | (HCC) | Fax: | | | | | | Procedures | [phone] | | | | | | [place] POLYSOM | | | | | | [...] + + | 10/26/ | Hospital | [facility] | Neno Walker | Nocturnal hypoxia; | | 2019 - | Encounter | MED CTR SLEEP | MD Srinivas [address] [place] [address] | Chronic obstructive | | | | [address] [place] | [facility] | pulmonary disease, | | 10/27/ | | [place] | [place] [address] | unspecified COPD | | 2019 | | [address] | [phone] | type (HCC) | | | | [phone] | | | +--------+ + + + [...] [place] | | | | | | [address] | | | | | | | | +--------+---------+ + + + | 07/26/ | Office | Pulmonology | Navdeep Grande, | | | 2019 | Visit | | MD [address] | | | | | | [place] | | | | | | [address] | | | | | | | [...] [facility] | | | [place] [address] | | | Polysomnogram Report on Kait [...] | | | Jr. Walker MD, FAASMMedical DirectorChi St[facility] | | | Disorders [facility], | | | WAClinical Variety Lathe Operator of [facility] | | | [place], [place] | | |In the course of [...] | | | |Neno Walker Jr., MD, [facility] | | |Highway Painter | | |[facility] | | |[facility] | | |[place] | | |Clinical radial arm saw operator | | |[facility] | | |[place], [place] | | + + + + + | Procedure Note | + + | Neno Walker Jr., MD - 10/28/2018 10:42 AM PDT [facility] | | Disorders [place], [place] [address]Teuquorbxmspd Report on | | Kait Min performed [...] sleeping.Neno Walker Jr., MD, | | FAASMMedical DirectorChi St. [facility] Sleep Disorders [facility] | | [facility] Centerinical Variety Lathe Operator of [facility] | | [place], [place] | |Highway Painter | |[facility] [place] | |[facility] | |[place], [place] | |Clinical radial arm saw operator | |[facility] | |[place], [place] | + + documented in this encounter Visit Diagnoses + + | Diagnosis | + + | Nocturnal hypoxia Hypoxemia | + + | Chronic obstructive pulmonary disease, unspecified COPD type (HCC) | + + documented in this encounter"
--- OUTSIDE RECORDS SUMMARY | ~2019-04-18 | XMS | Encounter Summary ---
Demographics + + + | Address | [address] | | | [place] [address] | + + + | Home Phone [...] | | | | | [place] [address] | | + + + + + | Robson Min | ECON | Unknown | | + + + + + | Isabella Whitehead | ECON | Unknown | | + + + + + Care Team Providers + +------+ + | Care Horticulture Instructor Name | Role | Phone | [...] Sleep | Diagnoses | Harjinder | [facility] | | | Services | Medicine | Alveolar | MD Navdeep | [facility] | | | Required | | hypoventilat | [address] | Disorder [address] | | | | | ion JESUSITA and | [address] | [address] | | | | | COPD | [place], | [place], | | | | | overlap | [place] [address] | [place] [address] | | | | | syndrome | Phone: | Phone: | | | | | ([facility]) | [phone] | [phone] | | | | | | Fax: | Fax: | | | | | | [phone] | [phone] | +--------+ + + + + + [...] | | | Pulmonology | (chronic | [address] | [address] | | | | | obstructive | [address] | [place], | | | | | pulmonary | [address] | [place] [address] | | | | | disease) | [address] | Phone: | | | | | ([facility]) | [place] | [phone] | | | | | Procedures | [address] | Fax: | | | | | F/U APPEver CRUZ | Phone: | [phone] | | | | | [address] | [phone] | | | | | | 11/19/17 | Fax: | | | | | | | [phone] | | +--------+--------+ + + + + Encounter Details +--------+---------+ + + + | Date | Type | Department | Care Team | Description | +--------+---------+ + + + | 05/20/ | Office | [facility] | Navdeep Grande, | Alveolar | | 2019 | Visit | PULMONARY [address] | MD [address] | hypoventilation | | | | [address] [place], | [place] | (Primary Dx); COPD, | | | | [place] [address] | [address] | mild (HCC); Tobacco | | | | [phone] | | use disorder; | | | [...] 50,000 Units by mouth Once a w [place]., Disp: , Rfl: fluticasone-salmeterol (ADVAIR DISKUS) 250-50 [...] [place] | | | | | | [address] | | | | | | | | +--------+---------+ + + + | 07/26/ | Office | Pulmonology | Navdeep Grande, | | | 2019 | Visit | | MD Cely [address]ORE | | | | | | [place] | | | | | | [address] | | | | | | | [...]
--- OUTSIDE RECORDS SUMMARY | ~2019-04-18 | XMS | Encounter Summary ---
Demographics + + + | Address | [address] | | | [place] [address] | + + + | Home Phone [...] | | | | | [place] [address] | | + + + + + | Robson Min | ECON | Unknown | | + + + + + | Isabella Whitehead | ECON | Unknown | | + + + + + Care Team Providers + +------+ + | Care Derrick Barge Operator Name | Role | Phone | [...] | Abnormal | MD Navdeep | [address] | | | | | chest CT | [address] | [place], | | | | | Procedures | [address] | [place] [address] | | | | | CT Chest wo | [place], | Phone: | | | | | Contrast | [place] [address] | [phone] | | | | | | Phone: | Fax: | | | | | | [phone] | [phone] | | | | | | Fax: | | | | | | | [phone] | | +--------+--------+ + + + + Reason for Visit +--------+ + | Reason | Comments | +--------+ + | COPD | | +--------+ + Encounter Details +--------+---------+ + + + | Date | Type | Department | Care Team | Description | +--------+---------+ + + + | 09/06/ | Office | [facility] | Navdeep Grande, | Abnormal chest CT | | 2013 | Visit | PULMONARY [address] | MD [address] | (Primary Dx); | | | | [place], | [place], [place] | Chronic bronchitis; | | | | [place] [address] | [address] | Other nonspecific | | | | [phone] | | abnormal finding of | | [...] Lumbago Nocturia Pyoderma gangreosum-LE Bipolar 1 disorder ([facility]) Hypertension Lymphedema Nausea and vomiting Reflux esophagitis GI bleeding Empyema lung ([facility]) 2005 right Knee pain CHRONIC TENSION HEADACHE [...] 4 times daily., Disp: , Rfl: ; towdddewpa-rxwepwn-wnassonp (BUTALBITA L COMPOUND/ASA) per tablet, One tablet [...] [place] | | | | | | [address] | | | | | | | | +--------+---------+ + + + | 07/26/ | Office | Pulmonology | Navdeep Grande, | | | 2019 | Visit | | MD Cely GORE | | | | | | [place] | | | | | | [address] | | | | | | | [...] + | MISCELLANEOUS LAB | | | [phone] | + +---------+ + + | MISCELANIOUS LAB | | | [phone] | + +---------+ + + documented in [...]
--- OUTSIDE RECORDS SUMMARY | ~2019-04-18 | XMS | Encounter Summary ---
Demographics + + + | Address | [address] | | | [place] [address] | + + + | Home Phone [...] | | | | | [place] [address] | | + + + + + | Robson Min | ECON | Unknown | | + + + + + | Isabella Whitehead | ECON | Unknown | | + + + + + Care Team Providers + +------+ + | Care Salesperson Shoes Name | Role | Phone | + [...] | | apnea, | [address] | | | | | unspecified | POPLAR | [place], | | | | | type | [place], | [place] [address] | | | | | Alveolar | [place] [address] | Phone: | | | | | hypoventilat | Phone: | [phone] | | | | | ion | [phone] | Fax: | | | | | Procedures | Fax: | [phone] | | | | | [place] POLYSOM | [phone] | | | | | | 6/>YRS [...] + + | 11/22/ | Hospital | [facility] | [place], | Sleep apnea, | | 2018 - | Encounter | MED [facility] SLE[facility] | [address] | unspecified type; | | | | CENTER [address] | [employer], [place] | Alveolar | | 11/23/ | | [place], [place] | [address] | hypoventilation; | | 2017 | | [address] | | COPD, mild ([facility]) | | | | [phone] | | | +--------+ + + + [...] MICHELLE | | | | | | [id number] | | | | | | | | +--------+---------+ + + + | 07/26/ | Office | Pulmonology | [place], | | | 2019 | Visit | | [address] | | | | | | [place] | | | | | | [id number] | | | | | | | [...]
--- OUTSIDE RECORDS SUMMARY | ~2019-04-18 | XMS | Encounter Summary ---
Demographics + + + | Address | [address] | | | [place] [address] | + + + | Home Phone | | + + + | Preferred Language | Unknown | + + + | Marital Status | Single | + + + | Gnosticism Affiliation | CHR | + + + [...] | | | | | [place] [address] | | + + + + + Care Team Providers + +------+ + | Care Kai Whakaruruhau Name | Role | Phone | + [...] [address] | | | | | [place] | [place] | | | | | [address] | [address] | | | | | [phone] | [phone] | | | | | | | [...] + + | Performing | Address | City/State/[facility] | Phone Number | | Organization | | | | + +---------+ + + | [facility] | | | | | [...] | | + +---------+ + + | [facility] | | | | | [...] | + + + + + | [facility] | [address] | [place] [address] | | | PATHOLOGY | [address] | | | + + + + + | [facility] | [address] | [place] [address] | | | PATHOLOGY | [address] [...] DEPARTMENT OF | [address] | [place] [address] | | | PATHOLOGY | [address] | | | + + + + + | [facility]PART[facility] OF | [address] | [place] [address] | | | PATHOLOGY | [address] [...] | + + + + + | [facility] | [address] | [place] [address] | | | PATHOLOGY | [address] | | | + + + + + | [facility] | [facility] | [place] [address] | | | PATHOLOGY | [address] [...] DEPARTMENT OF | [address] | [place] [address] | | | PATHOLOGY | [address] | | | + + + + + | [facility] | [address] | [place] [address] | | | PATHOLOGY | [address] [...] + + | Performing | Address | City/State/[facility] | Phone Number | | Organization | | | | + +---------+ + + | [facility] | | | | | [...] | + + + + + | [facility] | [address] | [place] [address] | | | PATHOLOGY | [address] | | | + + + + + | [facility] | [facility] | [place] [address] | | | PATHOLOGY | [address] [...] | + + + + + | [facility] | [address] | [place] [address] | | | PATHOLOGY | [address] | | | + + + + + | [facility] DEPARTMENT OF | [address] | [place] [address] | | | PATHOLOGY | [address] [...] | + + + + + | [facility] | [facility] | [place] [address] | | | PATHOLOGY | [address] | | | + + + + + | [facility] | [facility] [address] | [place] [address] | | | PATHOLOGY | [address] [...] | + + + + + | [facility] | [address] | [place] [address] | | | PATHOLOGY | [address] | | | + + + + + | [facility] | [address] | [place] [address] | | | PATHOLOGY | [address] [...] | + + + + + | [facility] | [address] | [place] [address] | | | PATHOLOGY | [address] | | | + + + + + | [facility] | [facility] | [place] [address] | | | PATHOLOGY | [address] [...] | + + + + + | [facility] | [address] | [place] [address] | | | PATHOLOGY | [address] | | | + + + + + | [facility] | [address] | [place] [address] | | | PATHOLOGY | [address] [...] DEPARTMENT OF | [address] | [place] [address] | | | PATHOLOGY | [address] | | | + + + + + | [facility] DEPARTMENT OF | [address] | [place] [address] | | | PATHOLOGY | [address] [...] DEPARTMENT OF | [address] | [place] [address] | | | PATHOLOGY | [address] | | | + + + + + | [facility] OF | [address] | [place] [address] | | | PATHOLOGY | [address] [...] DEPARTMENT OF | [address] | [place] [address] | | | PATHOLOGY | [address] | | | + + + + + | [facility] | [address] | [place] [address] | | | PATHOLOGY | [address] [...] | | + +---------+ + + | [facility] | | | | | [...] | + + + + + | [facility] | [address] | [place] [address] | | | PATHOLOGY | [address] | | | + + + + + | [facility] | [address] | [place] [address] | | | PATHOLOGY | [address] [...] DEPARTMENT OF | [address] | [place] [address] | | | PATHOLOGY | [address] | | | + + + + + | [facility] DEPARTMENT OF | [address] | [place] [address] | | | PATHOLOGY | [address] [...] | + + + + + | [facility] | [address] | [place] [address] | | | PATHOLOGY | [address] | | | + + + + + | [facility] DE[facility] | [address] | [place] [address] | | | PATHOLOGY | [address] [...] DEPARTMENT OF | [address] | [place] [address] | | | PATHOLOGY | [address] | | | + + + + + | [facility] | [address] | [place] [address] | | | PATHOLOGY | [address] | | | + + + + + MAGNESIUM, PLASMA (10/30/2005 7:14 AM PDT) + +-------+ + + + | Component | Value | Ref Range | Performed | Pathologist | | | | | At | Signature | + +-------+ + + + | MAGNESIUM,P | 2.1 | 1.8 - 2.5 mg/dL | [facility] | | | LASMA | | | [...] | + + + + + | [facility] | [address] | [place] [address] | | | PATHOLOGY | [address] | | | + + + + + | [facility] | [address] | [place] [address] | | | PATHOLOGY | [address] [...] DEPARTMENT OF | [address] | [place] [address] | | | PATHOLOGY | [address] | | | + + + + + | [facility] DEPARTMENT OF | [address] | [place] [address] | | | PATHOLOGY | [address] [...] | + + + + + | [facility] DE[facility] | [address] | [place] [address] | | | PATHOLOGY | [address] | | | + + + + + | [facility] DEPARTMENT OF | [address] | [place] [address] | | | PATHOLOGY | [address] [...] | + + + + + | [facility] | [address] | [place] [address] | | | PATHOLOGY | [address] | | | + + + + + | [facility] DE[facility] | [address] | [place] [address] | | | PATHOLOGY | [address] [...] DEPARTMENT OF | [address] | [place] [address] | | | PATHOLOGY | [address] | | | + + + + + | [facility] DE[facility] | [address] | [place] [address] | | | PATHOLOGY | [address] | | | + + + + + RENAL FUNCTION SET (10/29/2005 6:50 AM PDT) + +---------+ + + + | Component | Value | Ref Range | Performed | Pathologist | | | | | At | Signature | + +---------+ + + + | GLUCOSE, | 135 (H) | 65 - 110 mg/dL | [facility] | | | PLASMA | | | [...] | + + + + + | [facility] DE[facility]MENT [facility] | [address] | [place] [address] | | | PATHOLOGY | [address] | | | + + + + + | [facility] DE[facility]MENT [facility] | [address] | [place] [address] | | | PATHOLOGY | [address] [...] DEPARTMENT OF | [address] | [place] [address] | | | PATHOLOGY | [address] | | | + + + + + | [facility] | [address] | [place] [address] | | | PATHOLOGY | [address] [...] | + + + + + | [facility] | [address] | [place] [address] | | | PATHOLOGY | [address] | | | + + + + + | [facility] | [facility] | [place] [address] | | | PATHOLOGY | [address] [...] | + + + + + | [facility] | [address] | [place] [address] | | | PATHOLOGY | [address] | | | + + + + + | [facility] | [address] | [place] [address] | | | PATHOLOGY | [address] [...] | + + + + + | [facility] | [address] | [place] [address] | | | PATHOLOGY | [address] | | | + + + + + | [facility] | [address] | [place] [address] | | | PATHOLOGY | [address] | | | + + + + + MAGNESIUM, PLASMA (10/28/2005 3:15 AM PDT) + +---------+ + + + | Component | Value | Ref Range | Performed | Pathologist | | | | | At | Signature | + +---------+ + + + | MAGNESIUM,P | 1.4 (L) | 1.8 - 2.5 mg/dL | [facility] | | | LASMA | | | [...] | + + + + + | [facility] | [address] | [place] [address] | | | PATHOLOGY | [address] | | | + + + + + | [facility] OF | [address] | [place] [address] | | | PATHOLOGY | [address] [...] | + + + + + | [facility] | [address] | [place] [address] | | | PATHOLOGY | [address] | | | + + + + + | [facility] | [address] | [place] [address] | | | PATHOLOGY | [address] [...] | + + + + + | [facility] | [address] | [place] [address] | | | PATHOLOGY | [address] | | | + + + + + | [facility] | [address] | [place] [address] | | | PATHOLOGY | [address] [...] DEPARTMENT OF | [address] | [place] [address] | | | PATHOLOGY | [address] | | | + + + + + | [facility] OF | [address] | [place] [address] | | | PATHOLOGY | [address] [...] | + + + + + | [facility] DE[facility] | [facility] | [place] [address] | | | PATHOLOGY | [address] | | | + + + + + | [facility] DEPARTMENT OF | [facility] | [place] [address] | | | PATHOLOGY | [address] [...] | | + +---------+ + + | [facility] DE[facility]MENT OF | | | | | [...] | + + + + + | [facility] | [address] | [place] [address] | | | PATHOLOGY | [address] | | | + + + + + | [facility] | [facility] | [place] [address] | | | PATHOLOGY | [address] | | | + + + + + MAGNESIUM, PLASMA (10/27/2005 6:15 PM PDT) + +---------+ + + + | Component | Value | Ref Range | Performed | Pathologist | | | | | At | Signature | + +---------+ + + + | MAGNESIUM,P | 1.5 (L) | 1.8 - 2.5 mg/dL | [facility] | | | LASMA | | | [...] | + + + + + | [facility] DE[facility] | [address] | [place] [address] | | | PATHOLOGY | [address] | | | + + + + + | [facility] DE[facility] | [address] | [place] [address] | | | PATHOLOGY | [address] [...] | + + + + + | [facility] DE[facility] | [address] | [place] [address] | | | PATHOLOGY | [address] | | | + + + + + | [facility] | [facility] | [place] [address] | | | PATHOLOGY | [address] [...] DEPARTMENT OF | [address] | [place] [address] | | | PATHOLOGY | [address] | | | + + + + + | [facility] | [address] | [place] [address] | | | PATHOLOGY | [address] [...] + | [facility] OF | [address] | [place] [address] | | | PATHOLOGY | [address] | | | + + + + + | [facility] DEPARTMENT OF | [address] | [facility] [place] [address] | | | PATHOLOGY | [address] [...] DEPARTMENT OF | [address] | [place] [address] | | | PATHOLOGY | [address] | | | + + + + + | [facility] DEPARTMENT OF | [address] | [place] [address] | | | PATHOLOGY | [address] [...] + + + | [facility] | [address] | [place] [address] | | | LAB-MICRO | | | [...] | | | | | performed at [place] | | | | | | [facility] | | | | | | Laboratory. | | | | + + + + + + + + | Specimen | + + | | + + + + + + + | Performing | Address | City/State/Zipcode | Phone Number | | Organization | | | | + + + + + | [facility] | [address] | [place] [address] | | | LAB-MICRO | | | [...] + + + | [facility] | [address] | [place] [address] | | | LAB-MICRO | | | [...] + + + | [facility] | [address] | [place] [address] | | | LAB-MICRO | | | [...] | | | | | performed at [place] | | | | | | [facility] | | | | | | Laboratory | | | | + + + + + + + + | Specimen | + + | | + + + + + + + | Performing | Address | City/State/Zipcode | Phone Number | | Organization | | | | + + + + + | [facility] | [address] | [place] [address] | | | LAB-MICRO | | | [...] | + + + + + | [facility] | [address] | [place] [address] | | | LAB-MICRO | | | [...] | | | | Test performed at [place] | | | | | | [facility] | | | | | | Laboratory. | | | | + + + + + + + + | Specimen | + + | | + + + + + + + | Performing | Address | City/State/Zipcode | Phone Number | | Organization | | | | + + + + + | [facility] | [address] | [place] [address] | | | LAB-MICRO | | | [...] | + + + + + | [facility] DEPARTMENT OF | [address] | [place] [address] | | | PATHOLOGY | [address] | | | + + + + + | [facility] | [address] | [place] [address] | | | PATHOLOGY | [address] [...] | + + + + + | [facility] | [address] | [place] [address] | | | LAB-MICRO | | | [...] | | | | | performed at [place] | | | | | | [facility] | | | | | | Laboratory. | | | | + + + + + + + + | Specimen | + + | | + + + + + + + | Performing | Address | City/State/Zipcode | Phone Number | | Organization | | | | + + + + + | [facility] | [address] | [place] [address] | | | LAB-MICRO | | | [...] + + + | [facility] | [address] | [place] [address] | | | LAB-MICRO | | | [...] + + + | [facility] | [address] | [place] [address] | | | LAB-MICRO | | | [...] | | | | | performed at [place] | | | | | | [facility] | | | | | | Laboratory | | | | + + + + + + + + | Specimen | + + | | + + + + + + + | Performing | Address | City/State/Zipcode | Phone Number | | Organization | | | | + + + + + | [facility] | [address] | [place] [address] | | | LAB-MICRO | | | [...] + + + | [facility] | [address] | [place] [address] | | | LAB-MICRO | | | [...] | | | | Test performed at [place] | | | | | | [facility] | | | | | | Laboratory. | | | | + + + + + + + + | Specimen | + + | | + + + + + + + | Performing | Address | City/State/Zipcode | Phone Number | | Organization | | | | + + + + + | [facility] | [address] | [place] [address] | | | LAB-MICRO | | | [...] DEPARTMENT OF | [address] | [place] [address] | | | PATHOLOGY | [address] | | | + + + + + | [facility] DEPARTMENT OF | [address] | [place] [address] | | | PATHOLOGY | [address] [...] DEPARTMENT OF | [address] | [place] [address] | | | PATHOLOGY | [address] | | | + + + + + | [facility] DE[facility] | [address] | [place] [address] | | | PATHOLOGY | [address] | | | + + + + + SURGICAL PATHOLOGY (10/27/2005) + + + + + + | Component | Value | Ref Range | Performed | Pathologist | | | | | At | Signature | + + + + + + | SURGICAL | SOURCE OF SPECIMEN:A | | [facility] | | | PATHOLOGY | Parietal pleura-FSSOURCE [...] 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 | | | | | | Leveler | | | | | | sections [...] | + + + + + | [facility] | [facility] | [place] [address] | | | PATHOLOGY | [address] | | | + + + + + | [facility] DE[facility] | [facility] | [place] [address] | | | PATHOLOGY | [address] [...] + + + + | PRODUCT | [id number] | | [facility] | | | UNIT [...] | + + + + + | [facility] DEPARTMENT OF | [address] | [place] [address] | | | PATHOLOGY | [address] | | | + + + + + | [facility] OF | [address] | [place] [address] | | | PATHOLOGY | [address] [...] + + + + | PRODUCT | [id number] | | [facility] | | | UNIT [...] | + + + + + | [facility] DEPARTMENT | [address] | [place] [address] | | | PATHOLOGY | [address] | | | + + + + + | [facility] DE[facility] | [facility] | [place] [address] | | | PATHOLOGY | [address] [...] (H) | 150 - 400 K/cu | [facility] | | | COUNT | | mm [...] | + + + + + | [facility] DE[facility] | [facility] | [place] [address] | | | PATHOLOGY | [address] | | | + + + + + | [facility] DEPARTMENT OF | [address] | [place] [address] | | | PATHOLOGY | [address] [...] | + + + + + | [facility] | [address] | [place] [address] | | | PATHOLOGY | [address] | | | + + + + + | [facility] | [address] | [place] [address] | | | PATHOLOGY | [address] [...] | + + + + + | [facility] | [address] [place] [address] | [place] [address] | | | PATHOLOGY | [address] | | | + + + + + | [facility] | [address] [place] [address] | [place] [address] | | | PATHOLOGY | [address] [...] | + + + + + | [facility] | [address] | [place] [address] | | | PATHOLOGY | [address] | | | + + + + + | [facility] | [address] | [place] [address] | | | PATHOLOGY | [address] [...] | + + + + + | [facility] DE[facility]MENT OF | [address] | [place] [address] | | | PATHOLOGY | [address] | | | + + + + + | [facility] | [address] | [place] [address] | | | PATHOLOGY | [address] [...] | + + + + + | [facility] DEPARTMENT OF | [address] | [place] [address] | | | PATHOLOGY | [address] | | | + + + + + | [facility] DEPARTMENT OF | [address] | [place] [address] | | | PATHOLOGY | [address] [...] | + + + + + | [facility] DE[facility]MENT OF | [address] | [place] [address] | | | PATHOLOGY | [address] | | | + + + + + | [facility] DEPARTMENT OF | [address] | [place] [address] | | | PATHOLOGY | [address] | | | + + + + + ROD CUNNINGHAM (10/22/2005 8:50 PM PDT) + + + + + + | Component | Value | Ref Range | Performed | Pathologist | | | | | At | Signature | + + + + + + | COLOR(UR) | Yellow | | [facility] | | | | | | DEPARTMENT [...] DEPARTMENT OF | [address] | [place] [address] | | | PATHOLOGY | [address] | | | + + + + + | [facility] DEPARTMENT OF | [address] | [place] [address] | | | PATHOLOGY | [address] [...] | + + + + + | [facility] | [address] | [place] [address] | | | PATHOLOGY | [address] | | | + + + + + | [facility] | [address] | [place] [address] | | | PATHOLOGY | [address] [...] DEPARTMENT OF | [address] | [place] [address] | | | PATHOLOGY | [address] | | | + + + + + | [facility] DEPARTMENT OF | [address] | [place] [address] | | | PATHOLOGY | [address] [...] | + + + + + | [facility] | [facility] | [place] [address] | | | PATHOLOGY | [address] | | | + + + + + | [facility] DEPARTMENT OF | [address] | [place] [address] | | | PATHOLOGY | [address] [...] | + + + + + | [facility] | [address] | [place] [address] | | | PATHOLOGY | [address] | | | + + + + + | [facility] | [address] | [place] [address] | | | PATHOLOGY | [address] [...] | + + + + + | [facility] DEPARTMENT OF | [address] | [place] [address] | | | PATHOLOGY | [address] | | | + + + + + | [facility] DEPARTMENT OF | [facility] | [place] [address] | | | PATHOLOGY | [address] | | | + + + + + documented in this encounter Visit Diagnoses Not on filedocumented in this encounter"
[~2019-04-18 07:01] MED LIST changes: +BRINTELLIX10 MG PO; +BUPRENORPHINE1 EAC1 TD; +CEFPODOXIME PR200 MG PO; +DEMADEX20 MG PO; +DOXYCYCLINE MO100 MG PO; +ONDANSETRON HCL4 MG PO
--- OUTSIDE RECORDS SUMMARY | 2019-04-18 07:04 | XMS ---
PreManage Notification: CARLINE ESCOBAR Security Contemporary Or Modern Dancer Events No recent Security Events currently on file CRITERIA MET - [facility] DIANN Lam[facility] 11/03/2018-Current PHONE: [phone] FRANNIE MARTÍNEZ Physician Wood Type Cutter 06/15/2018-Current PHONE: [phone] Katerine Smith Computer Security Manager/Stove Tender 01/23/2019-Current PHONE: [phone] Katerine Smith Primary Care 01/23/2019-Current PHONE: [phone] Guidelines Source: [facility]ala Lopez Guidelines Date: 08/15/2018 Care Coordination: Currently engaged in mental health services with [facility].\T\nbsp; Please contact [facility] with mental health concerns.\T\nbsp; Yane/Akbar Anupam: \T\nbsp; [phone]\T\nbsp; Katie:\T\nbsp; [phone]. E.D. VISIT COUNT (12 MO.) 1 Alice Irby Angelita TOTAL 6 NOTE: Visits indicate total known visits. ED/UCC VISIT TRACKING (12 MO.) 04/18/2019 07:01 [facility] [place] TYPE: Emergency COMPLAINT: - LOW BLOOD SUGAR, SOB 11/29/2018 16:35 [facility] [place] TYPE: Emergency COMPLAINT: - SOB DIAGNOSES: - Rheumatoid arthritis, unspecified - Local infection of the skin and subcutaneous tissue, unsp - Chronic obstructive pulmonary disease, unspecified - Nicotine dependence, unspecified, uncomplicated - Allergy status to oth drug/meds/biol subst status - Anxiety disorder, unspecified - 1 Type 2 diabetes mellitus without complications - longterm (current) use of insulin - Other correction (current) drug therapy - Other nonmedicinal substance allergy status - Allergy status to other antibiotic agents status - Hypothyroidism, unspecified - Bipolar disorder, unspecified - Pruritus, unspecified - Essential (primary) hypertension 11/02/2018 14:25 [facility] [place] TYPE: Emergency COMPLAINT: - HEADACHE, VOMITING DIAGNOSES: - Headache - 1 Type 2 diabetes mellitus without complications - Bipolar disorder, unspecified - Allergy status to oth drug/meds/biol subst status - Post-traumatic stress disorder, unspecified - Other wind turbine electrical engineer (current) drug therapy - Migraine, unsp, not intractable, without status migrainosus - Other nonmedicinal substance allergy status - Essential (primary) hypertension - Chronic obstructive pulmonary disease, unspecified - Allergy status to other antibiotic agents status - air gun operator (current) use of insulin - Nicotine dependence, unspecified, uncomplicated 08/15/2018 08:28 [facility] [place] TYPE: Emergency DIAGNOSES: - Other acute kidney failure - Acute respiratory failure with hypoxia - Altered - Pneumonia, unspecified organism - Altered Mental Status - Acute respiratory failure with hypercapnia - Metabolic encephalopathy 06/17/2018 05:30 [facility] [place] TYPE: Emergency COMPLAINT: - VOMITING 06/14/2018 11:38 [facility] [place] TYPE: Emergency COMPLAINT: - ALT MENTAL STATUS INPATIENT VISIT TRACKING (12 MO.) 08/15/2018 08:28 Alice Diamond [facility] [place] TYPE: Critical Care DIAGNOSES: - Pneumonia, unspecified organism - Other acute kidney failure - Acute respiratory failure with hypercapnia - Acute respiratory failure with hypoxia - Metabolic encephalopathy 06/17/2018 05:31 [facility] [place] TYPE: Observation COMPLAINT: - ACUTE GASTRITIS DIAGNOSES: - Dependence on supplemental oxygen - Rheumatoid arthritis, unspecified - Chronic respiratory failure with hypoxia - Post-traumatic stress disorder, unspecified - Allergy status to oth drug/meds/biol subst status - Vomiting, unspecified - Pneumonia, unspecified organism - Nausea with vomiting, unspecified - Allergy status to other antibiotic agents status - Chronic obstructive pulmonary disease, unspecified - Chronic pain syndrome - Essential (primary) hypertension - 1 Type 2 diabetes w unsp diabetic rtnop w/o macular edema - Other correction (current) drug therapy - Hypothyroidism, unspecified - Gastro-esophageal reflux disease without esophagitis - Bipolar disorder, unspecified - longterm (current) use of insulin - Nicotine dependence, cigarettes, uncomplicated - Anxiety disorder, unspecified 06/14/2018 16:31 [facility] [place] TYPE: Medical Surgical COMPLAINT: - SEPSIS DIAGNOSES: - Gram-negative sepsis, unspecified Gram-nega - Rheumatoid arthritis, unspecified - 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 - Pneumonia due to other Gram-negative bacteria - Post-traumatic stress disorder, unspecified - Anxiety disorder, unspecified - Rheumatoid arthritis, unspecified - Chronic respiratory failure with hypoxia - Nicotine dependence, unspecified, uncomplicated - Essential (primary) hypertension - Irritable bowel syndrome without diarrhea - Essential (primary) hypertension - Other wind turbine electrical engineer (current) drug therapy - Post-traumatic stress disorder, unspecified - Hypothyroidism, unspecified - Gastro-esophageal reflux disease without esophagitis - Opioid dependence, uncomplicated - longterm (current) use of insulin - Metabolic encephalopathy - Old myocardial infarction - Bipolar disorder, unspecified - Bipolar disorder, unspecified - Anxiety disorder, unspecified - 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 - Dependence on supplemental oxygen - longterm (current) use of insulin - longterm (current) use of non-steroidal non-inflam (NSAID) - Sepsis, unspecified organism Sepsis, u - Chronic respiratory failure with hypoxia - Chronic pain syndrome - Opioid dependence, uncomplicated - Allergy status to other antibiotic agents status - Metabolic encephalopathy - Chr obstructive pulmon disease with (acute) lower resp infct - Gastro-esophageal reflux disease without esophagitis - Chronic pain syndrome - Nicotine dependence, unspecified, uncomplicated - Irritable bowel syndrome without diarrhea - Allergy status to other antibiotic agents status - Dependence on supplemental oxygen - Allergy status to oth drug/meds/biol subst status - Gram-negative sepsis, unspecified Gram-nega - Other correction (current) drug therapy - Pneumonia due to other Gram-negative bacteria - longterm (current) use of non-steroidal non-inflam (NSAID) - Allergy status to oth drug/meds/biol subst status - Chr obstructive pulmon disease with (acute) lower resp infct - Old myocardial infarction - Hypothyroidism, unspecified [email or web address]
--- NOTE | 2019-04-19 06:22 | EKG ---
[facility] [address] [facility] [place] [address] Signed Normal sinus rhythm Left axis deviation Minimal voltage criteria for LVH, may be normal variant Cannot rule out Anterior infarct , age undetermined Abnormal ECG When compared with ECG of 30-JUN-2017 15:37, premature ventricular complexes are no longer present Confirmed by SUKHJINDER KHAN MD (255) on 04/19/2019 6:22:35 AM Electronically Signed By: SUKHJINDER KHAN MD 04/19/19 0622 PATIENT NAME: CARLINE ESCOBAR Electrocardiogram DATE OF : 72 PHYSICIAN: SUKHJINDER KHAN MD REPORT #: [id number] REPORT IS CONFIDENTIAL AND NOT TO BE RELEASED WITHOUT AUTHORIZATION
--- NOTE | 2019-04-19 06:23 | EKG ---
[facility] [address] [facility] [place] [address] Signed Normal sinus rhythm Left axis deviation Minimal voltage criteria for LVH, may be normal variant Cannot rule out Anterior infarct , age undetermined Abnormal ECG No previous ECGs available Confirmed by SUKHJINDER KHAN MD (255) on 04/19/2019 6:22:42 AM Electronically Signed By: SUKHJINDER KHAN MD 04/19/19 0623 PATIENT NAME: LUZCARLINE LYNN Electrocardiogram DATE OF : 72 PHYSICIAN: SUKHJINDER KHAN MD REPORT #: [id number] REPORT IS CONFIDENTIAL AND NOT TO BE RELEASED WITHOUT AUTHORIZATION
== END 2019-04-18 10:15 | disposition short-term general hospital (02) ==
LOC: ED 07:01
DX: I21.4 Non-ST elevation (NSTEMI) myocardial infarction (principal); E11.9 Type 2 diabetes mellitus without complications; I10 Essential (primary) hypertension; E03.9 Hypothyroidism, unspecified; J44.9 Chronic obstructive pulmonary disease, unspecified; F31.9 Bipolar disorder, unspecified; F17.200 Nicotine dependence, unspecified, uncomplicated; Z91.048 Other nonmedicinal substance allergy status; Z88.8 Allergy status to other drugs, medicaments and biological substances; Z88.1 Allergy status to other antibiotic agents; Z79.899 Other long term (current) drug therapy; Z79.4 Long term (current) use of insulin
CPT/HCPCS: 71045; 80053; 83735; 83880; 84484; 85025; 85610; 85730; 93005; 93010; 96374; 99285-25; J2930; J7030

== ENCOUNTER 2019-05-03 06:37 | Emergency (ER) | payer OTHER ==
[~2019-05-03] VITALS: Ht 165.1 cm; Wt 98.0 kg
--- OUTSIDE RECORDS SUMMARY | ~2019-05-03 | XMS | Encounter Summary ---
Demographics + + + | Address | [address] | | | [place] [address] | + + + | Home Phone | | + + + | Preferred Language | Unknown | + + + | Marital Status | Single | + + + | Synagogue Affiliation | Unknown | + + + | Race | Unknown | + + + | Ethnic Group | Unknown | + + + Author + + + | Author | [facility] | | | and [place] | + + + | Organization | [facility] | | | and [place] | + + + | Address | Unknown | + + + | Phone | Unavailable | + + + Support + + + + + | Name | Relationship | Address | Phone | + + + + + | Isabella Min | ECON | [address] | | | | | [place] [address] | | + + + + + | Robson Min | ECON | Unknown | | + + + + + | Isabella Whitehead | ECON | Unknown | | + + + + + Care Team Providers + +------+ + | Care Steeler Name | Role | Phone | + +------+ + | Bart Ba DO | PCP | | + +------+ + Reason for Visit +--------+ + | Reason | Comments | +--------+ + | Other | repeat nocturnal pulse oximetry on O2 at 1 l/m | +--------+ + Encounter Details +--------+ + + + + | Date | Type | Department | Care Team | Description | +--------+ + + + + | 11/02/ | Telephone | [facility] | Navdeep [place], | Other (repeat | | 2018 | | PULMONARY [address] | MD [address] | nocturnal pulse | | | | [place], | [place] | oximetry on O2 at 1 | | | | [place] [address] | [id number] | l/m) | | | | [phone] | | | +--------+ + + + + Social History + + + +--------+ [...] | | + +---+---+---+ + + | Comments: 05/26/16: Currently using Chantix | + + + + +---------+ + | Alcohol Use | Drinks/Week | oz/Week | Comments | + + +---------+ + | Yes | 0 Standard drinks | 0.0 | Rare | | | or equivalent | | | + + +---------+ + + + + | Sex Assigned at | Date Recorded | | | | + + + | Not on file | | + + + + + + + | Job Start Date | Occupation | Industry | + + + + | Not on file | Not on file | Not on file | + + + + + + + + | Travel History | Travel Start | Travel End | + + + + + + | No recent travel history available. | + + documented as of this encounter Plan of Treatment +--------+---------+ + + + | Date | Type | Specialty | Care Team | Description | +--------+---------+ + + + | 06/19/ | Office | Neurology | Jimbo Samayoa MD | | | 2020 | Visit | | [address] | | | | | | [place] | | | | | | [address] | | | | | | | | +--------+---------+ + + + | 07/26/ | Office | Pulmonology | Navdeep [place], | | | 2019 | Visit | | [address] | | | | | | [place] | | | | | | [address] | | | | | | | | +--------+---------+ + + + documented as of this encounter Visit Diagnoses Not on filedocumented in this encounter"
--- OUTSIDE RECORDS SUMMARY | ~2019-05-03 | XMS | Encounter Summary ---
Demographics + + + | Address | [address] | | | [place] [address] | + + + | Home Phone | | + + + | Preferred Language | Unknown | + + + | Marital Status | Single | + + + | Anabaptism Affiliation | Unknown | + + + | Race | Unknown | + + + | Ethnic Group | Unknown | + + + Author + + + | Author | [facility] | | | and [place] | + + + | Organization | [facility] | | [...] | | | | | [place] [address] | | + + + + + | Robson Min | ECON | Unknown | | + + + + + | Isabella Whitehead | ECON | Unknown | | + + + + + Care Team Providers + +------+ + | Care Digital Communications Manager Name | Role | Phone | + +------+ + | Bart Ba DO | PCP | | + +------+ + Reason for Referral Diagnostic/Screening (Routine) +--------+--------+ + + + + | Status | Reason | Specialty | Diagnoses / | Referred By | Referred To | | | | | Procedures | Contact | Contact | +--------+--------+ + + + + | Closed | | Radiology | Diagnoses | Harjinder, | [address] | | | | | Abnormal | MD Navdeep | [address] | | | | | chest CT | [address] | [place], | | | | | Procedures | [place] | [place] [address] | | | | | CT Chest wo | [place], | Phone: | | | | | [place] | [place] [address] | [phone] | | | | | | Phone: | Fax: | | | | | | [phone] | [phone] | | | | | | Fax: | | | | | | | [phone] | | +--------+--------+ + + + + Reason for Visit +--------+ + | Reason | Comments | +--------+ + | COPD | | +--------+ + Encounter Details +--------+---------+ + + + | Date | Type | Department | Care Team | Description | +--------+---------+ + + + | 09/06/ | Office | [facility] | Navdeep Grande, | Abnormal chest CT | | 2013 | Visit | PULMONARY [address] | MD [address] | (Primary Dx); | | | | [place], | [place], [place] | Chronic bronchitis; | | | | [place] [address] | [id number] | Other nonspecific | | | | [phone] | | abnormal finding of | | | | | | lung field; Hypoxia, | | | | | | sleep related | +--------+---------+ + + + Social History + + + +--------+------+ | Tobacco Use | Types | Packs/Day | Years | Date | | | | | Used | | + + + +--------+------+ | Current Every Day | Cigarettes | 0.3 | 20 | | | Smoker | | | | | + + + +--------+------+ + +---+---+---+ | Smokeless Tobacco: | | | | | Never Used | | | | + +---+---+---+ + + +---------+ + | Alcohol Use | Drinks/Week | oz/Week | Comments | + + +---------+ + | No | | | | + + +---------+ + [...] + + + | Blood Pressure | 132/84 | 09/06/2013 9:55 AM | | | | | PDT | | + + + + + | Pulse | 77 | 09/06/2013 9:55 AM | | | | | PDT | | + + + + + | Temperature | - | - | | + + + + + | Respiratory Rate | - | - | | + + + + + | Oxygen Saturation | 99% | 09/06/2013 9:55 AM | | | | | PDT | | + + + + + | Inhaled Oxygen | - | - | | | Concentration | | | | + + + + + | Weight | 97.1 kg (214 lb) | 09/06/2013 9:55 AM | | | | | PDT | | + + + + + | Height | 167.6 cm (5' 6") | 09/06/2013 9:55 AM | | | | | PDT | | + + + + + | Body Mass Index | 34.54 | 09/06/2013 9:55 AM | | | | | PDT | | + + + + + documented in this encounter Patient Instructions Patient Instructions Navdeep Grande MD - 09/06/2013 10:10 AM PDTCall if breathing sympt oms worsen. Will stop portable oxygen. Flu shot in January 2014. Continue with stop smoking efforts.Electronically signed by Navdeep Grande MD at 014 10:14 AM PDT documented in this encounter Progress Notes Navdeep Grande MD - 09/06/2013 9:59 AM PDTFormatting of this note might be different f rom the original. Pulmonary Follow Up 09/06/2013 HPI Kait Min is a 43 y.o. female patient of Bart Ba DO here today for follow u p of COPD, hypoxemia and abnormal chest xray. Last visit was on 08/22/13. Since their last appointment they feel like their breathing issu es have been stable. They have not had any acute illnesses. The patient has not required a p rednisone taper since our last clinic appointment. They are currently on a daily regimen of Advair 100/50. They do feel like this medication regimen is working for them. They return today for routine follow up. Currently she is using their rescue inhaler, Ventolin, <1 time s a week. Currently the patient is able to walk 1/2 mile at their own pace on level ground. They are not exercising regularly secondary to back issues. They are not enrolled in cardiac/pulmona ry rehabilitation or other physical therapy. They have not completed pulmonary rehabilitatio n in the past. The patient does cough chronically, and does produce mucous in the morning. The mucous is c lear in color. They have not had hemoptysis since our last appointment. She has been evaluated for nocturnal oxygen and does does qualify for usage. They currentl y are using nocturnal oxygen. They are currently on 1 LPM at night. They report good compli ance. They have been evaluated for daytime oxygen and do use it some with exertion for SOB. They are currently on 1-2 LPM with exertion. She does not had symptoms of heartburn or reflux. They have not had symptoms of nasal conge stion, runny nose or post nasal drip. The patient has received this year's influenza vaccination. They are up to date with their Pneumovax. The patient continues to smoke. Specifically she is using half a pack of cigarettes a day. Past Medical History Past Medical History Diagnosis Date Wrist pain Diabetes mellitus, type 2 (HCC) Vitamin D deficiency Hypercholesterolemia Hypothyroidism Panic anxiety syndrome IBS (irritable bowel syndrome) Restless leg syndrome Urinary hesitancy Lumbago Nocturia Pyoderma gangreosum-LE Bipolar 1 disorder ([facility]) Hypertension Lymphedema Nausea and vomiting Reflux esophagitis GI bleeding Empyema lung ([facility]) 2005 right Knee pain CHRONIC TENSION HEADACHE Classical migraine without mention of intractable migraine Abnormal chest CT Most likely postoperative decortication changes Social History: She reports that she has been smoking Cigarettes. She has a 6 pack-year smoking history. S he has never used smokeless tobacco. She reports that she does not drink alcohol or use illi cit drugs. Allergies: Allergies Allergen Reactions Azithromycin Lamictal Medications: Current outpatient prescriptions:albuterol (VENTOLIN HFA) 90 mcg/puff inhaler, Inhale 2 puf fs into the lungs every 4 hours as needed., Disp: , Rfl: ; azaTHIOprine (AZASAN) 75 MG TABS , Take 50 mg by mouth 4 times daily., Disp: , Rfl: ; chfzgwjdse-upqbvpk-htrivlbc (BUTALBITA L COMPOUND/ASA) per tablet, One tablet by mouth every 6 hours as needed for migraine, Disp: , Rfl: ergocalciferol (VITAMIN D-2) 50,000 units capsule, Take 50,000 Units by mouth Daily., Disp: , Rfl: ; fluticasone-salmeterol (ADVAIR) 100-50 mcg/puff diskus inhaler, Inhale 1 puff int o the lungs Twice Daily., Disp: , Rfl: ; gabapentin (NEURONTIN) 600 MG tablet, Take 600 mg by mouth 3 times daily., Disp: , Rfl: ; HYDROcodone-acetaminophen (NORCO) 7.5-325 mg per ta blet, Take 7.5-325 mg by mouth every 4 hours., Disp: , Rfl: hyoscyamine (LEVSIN) 0.125 MG tablet, Place 0.125 mg under the tongue 4 times daily as need ed., Disp: , Rfl: ; levothyroxine (SYNTHROID, LEVOTHROID) 300 MCG tablet, Take 300 mcg by m outh Daily., Disp: , Rfl: ; LORazepam (ATIVAN) 0.5 mg tablet, One to two tablets by mouth a t bedtime, Disp: , Rfl: ; metFORMIN (GLUCOPHAGE) 500 mg tablet, Take two tablets by mouth e very a.m. and three tablets every p.m., Disp: , Rfl: metoprolol tartrate (LOPRESSOR) 25 mg tablet, Take 25 mg by mouth Daily., Disp: , Rfl: ; p romethazine (PHENERGAN) 25 mg tablet, Take 25 mg by mouth 3 times daily as needed., Disp: , Rfl: ; ranitidine (ZANTAC) 150 mg tablet, Take 150 mg by mouth Daily., Disp: , Rfl: ; simv astatin (ZOCOR) 20 mg tablet, Take 20 mg by mouth Daily., Disp: , Rfl: ; sucralfate (CARAFA TE) 1 g tablet, Take 1 g by mouth 4 times daily., Disp: , Rfl: SUMAtriptan (IMITREX) 100 mg tablet, 1/2-1 tablet by mouth daily as needed migraine, Disp: , Rfl: ; traZODone (DESYREL) 100 mg tablet, Take 100 mg by mouth nightly., Disp: , Rfl: ; venlafaxine (EFFEXOR) 75 MG tablet, Take 75 mg by mouth 2 times daily., Disp: , Rfl: ; VERA PAMIL HCL PO, Take by mouth 2 times daily., Disp: , Rfl: ; ziprasidone (GEODON) 60 MG caps ule, Take 80 mg by mouth Daily., Disp: , Rfl: Immunizations: Immunization History Administered Date(s) Administered INFLUENZA, PRESERVATIVE FREE IM 02/03/2012, 02/17/2013 Pneumococcal (Adult) 04/04/2009, 03/19/2013 Review of Systems Constitutional: Denies fever, chills, sweats and unexpected weight change. Sleep: Denies trouble sleeping, excessive snoring, and daytime sleepiness. Eyes: Denies vision change and eye irritation. ENT: Denies earache, nosebleeds, sore throat, and hoarseness. Resp: See HPI. CV: Denies neck/chest/jaw pain with exertion, palpitations, lightheadedness, syncope, orth opnea, PND and claudication. GI: Denies nausea, vomiting, abdominal pain, diarrhea,melena, and hematochezia. Neurologic: Denies frequent headaches, seizures, numbness or tingling in hands or feet, roberto tigo, and falls. Allergy Denies urticaria and allergic rash. Objective BP 132/84 | Pulse 77 | Ht 1.676 m (5' 6") | Wt 97.07 kg (214 lb) | BMI 34.56 kg/m2 | SpO2 9 9% Appearance: Alert, cooperative, no distress, appears stated age. Head: Normocephalic, without obvious abnormality, atraumatic. Eyes: PERRL, conjunctiva/corneas clear. Nose: Nares normal, septum midline, mucosa normal, no drainage or sinus tenderness. Throat: Oral mucosa and tongue are normal. No thrush. Neck: Supple, no JVD Lungs: No accessory muscle use, breath sounds are clear to auscultation bilaterally. No wheezes. No crackles or rhonchi. No dullness to percussion. Chest Wall: No tenderness or deformity. Heart: Regular rate and rhythm. S1, S2 normal. No murmur, rubs or gallops. Extremities: No cyanosis, clubbing. no edema.chronic scarring of lower extremities is note d Skin: Warm and dry. Lymph nodes: No significant cervical and supraclavicular nodes. Neurologic: Gait normal. No apparent weakness. Data: Nocturnal oximetry: Performed 08/23/13 the patient spent 393.4 minutes with O2 saturation les s than 90%. Her O2 saturation nadired at 73%. Exertional oximetry performed 08/25/13. Resting O2 saturation 97% O2 saturation with walking for approximately 4 minutes 93%. Pulmonary function tests performed 08/25/13. FVC 3.38, 90% of predicted. The FEV1/FVC 82%. Total lung capacity 5.07, 94% of predicted and the uncorrected DLCO 20.9, 73% of predicted. Assessment 1. COPD/chronic bronchitis-no significant abnormalities noted on pulmonary function testin g. I would classify the patient's severity as at risk given her tobacco use. There is a po ssibility of a component of asthma-like symptoms. Given that this no changes in Advair will occur at this time. 2. Nocturnal hypoxemia-patient uses supplemental oxygen at 1 L per minute at night while s leeping. There is no indication for the use of supplemental oxygen with exertion. Ms. Ap harmon is interested in discontinuing supplemental oxygen with exertion. 3. Abnormal chest CT-as previously noted this patient's abnormalities are most likely rela sriram to her prior decortication. 2 years of surveillance is recommended. To this end a foll owup CT scan will be performed in March 2014. Plan 1. Discontinue supplemental oxygen with exertion. 2. Continue oxygen 1 L per minute while sleeping. 3. Pulmonary clinic followup appointment with noncontrast chest CT in March 2014. 4. Smoking cessation efforts encouraged. 5. Seasonal influenza vaccination January 2014. CC: Bart Bell Mejia documented in this encounter Plan of Treatment +--------+---------+ + + + | Date | Type | Specialty | Care Team | Description | +--------+---------+ + + + | 06/19/ | Office | Neurology | Jimbo Samayoa MD | | 2019 | Visit | | [address] | | | | | | [place] | | | | | | [id number] | | | | | | | | +--------+---------+ + + + | 07/26/ | Office | Pulmonology | Navdeep Grande, | | | 2019 | Visit | | MD [address] | | | | | | [place] | | | | | | [id number] | | | | | | | | +--------+---------+ + + + documented as of this encounter Results CT Chest wo Contrast (04/24/2014 2:46 PM PST) + + | Specimen | + + | | + + + + + | Narrative | Performed At | + + + | UNENHANCED CHEST CT 04/24/2014 2:40 PM CLINICAL HISTORY: Follow up | MISCELANIOUS | | pulmonary changes and pulmonary nodule. Previously reported | LAB | | history of empyema. COMPARISON: Chest CT December 14, 2011 and | | | previous CTs dating back to November 2002, chest radiographs October 18, | | | 2012 and multiple previous radiographs TECHNIQUE: Axial unenhanced | | | images are performed through the chest, along with multiplanar | | | reformations. FINDINGS: Focal calcification persists in the left | | | thyroid lobe and is similar to previous. Enlargement of the main | | | pulmonary artery up to a diameter of approximately 3.6 cm is again | | | suggested. Minimal irregular shaped soft tissue density persists in | | | the anterior, superior mediastinum and is consistent with | | | residual/rebound thymus. The heart, mediastinum and thoracic | | | vasculature otherwise have an unremarkable unenhanced appearance. | | | No pathologic lymph node enlargement is visible on the basis of | | | size criteria. Minimal previously visible loculated posterior right | | | basilar pleural fluid has mostly resolved in the interim. There is | | | no layering pleural fluid or pneumothorax. The previously visible | | | rounded, lucent/cavitary process in the posterior, basilar right | | | lower lobe has decreased in the interim, presently measuring up to | | | approximately 2.6 cm in maximal dimension compared to 3.5 cm in November | | | 2011. There is similar bandlike opacity along the margins of this | | | region. Additional tiny lucent/cavitary regions laterally in the | | | right lower lobe and right middle lobe and anteriorly in the right | | | upper lobe are less pronounced and demonstrate less wall thickening | | | presently. There is similar bandlike opacity in these regions, | | | consistent with scar. Asymmetric elevation of the right | | | hemidiaphragm persists unchanged. A 6.5 mm anterior left apical | | | nodule on image 20 is stable from studies performed in 2012 but is | | | larger compared with studies from 2005. A 2 mm subpleural left | | | upper lobe nodule on image 32 is stable. No new nodule or | | | consolidation is evident. No central airway abnormality is evident. | | | There is mild leftward thoracic curvature and multilevel | | | spondylosis and Schmorl's node formation. Degenerative disc disease | | | and spondylosis are noted within the imaged lower cervical spine. | | | The imaged upper abdomen is unremarkable. IMPRESSION - 1. | | | LESS PRONOUNCED APPEARANCE AND LESS WALL THICKENING OF | | | LUCENT/CAVITARY REGIONS IN THE PERIPHERAL RIGHT LUNG COMPARED WITH CT | | | OF NOVEMBER 2011, FAVORING RESIDUAL SEQUELA OF THE PREVIOUSLY REPORTED | | | HISTORY OF EMPYEMA. THERE IS SCANT RESIDUAL RIGHT BASILAR PLEURAL | | | FLUID AND SIMILAR ELEVATION OF THE HEMIDIAPHRAGM. NO ADENOPATHY OR | | | OTHER SUSPICIOUS FINDING IS PRESENT. 2. TWO STABLE, SMALL LEFT | | | UPPER LOBE NODULES. 3. PERSISTENT ENLARGEMENT OF THE MAIN | | | PULMONARY ARTERY, SUGGESTING PULMONARY ARTERIAL HYPERTENSION. | | | Dictated and Signed by: Patrick Simmons MD Electronically signed: | | | 04/25/2014 7:04 AM | | + + + + + | Procedure Note | + + | Demario, Rad Results In - 04/25/2014 7:07 AM PST UNENHANCED CHEST CT 04/24/2014 2:40 PM | | | | CLINICAL HISTORY: Follow up pulmonary changes and pulmonary nodule. Previously | | reported history of empyema. | | | | COMPARISON: Chest CT December 14, 2011 and previous CTs dating back to November | | 2002, chest radiographs October 18, 2012 and multiple previous radiographs | | | | TECHNIQUE: Axial unenhanced images are performed through the chest, along with | | multiplanar reformations. | | | | FINDINGS: Focal calcification persists in the left thyroid lobe and is similar | | to previous. Enlargement of the main pulmonary artery up to a diameter of | | approximately 3.6 cm is again suggested. Minimal irregular shaped soft tissue | | density persists in the anterior, superior mediastinum and is consistent with | | residual/rebound thymus. The heart, mediastinum and thoracic vasculature | | otherwise have an unremarkable unenhanced appearance. No pathologic lymph node | | enlargement is visible on the basis of size criteria. Minimal previously | | visible loculated posterior right basilar pleural fluid has mostly resolved in | | the interim. There is no layering pleural fluid or pneumothorax. | | | | The previously visible rounded, lucent/cavitary process in the posterior, | | basilar right lower lobe has decreased in the interim, presently measuring up to | | approximately 2.6 cm in maximal dimension compared to 3.5 cm in November 2011. | | There is similar bandlike opacity along the margins of this region. Additional | | tiny lucent/cavitary regions laterally in the right lower lobe and right middle | | lobe and anteriorly in the right upper lobe are less pronounced and demonstrate | | less wall thickening presently. There is similar bandlike opacity in these | | regions, consistent with scar. Asymmetric elevation of the right hemidiaphragm | | persists unchanged. A 6.5 mm anterior left apical nodule on image 20 is stable | | from studies performed in 2012 but is larger compared with studies from 2006. A | | 2 mm subpleural left upper lobe nodule on image 32 is stable. No new nodule or | | consolidation is evident. No central airway abnormality is evident. | | | | There is mild leftward thoracic curvature and multilevel spondylosis and | | Schmorl's node formation. Degenerative disc disease and spondylosis are noted | | within the imaged lower cervical spine. The imaged upper abdomen is | | unremarkable. | | | | IMPRESSION - | | 1. LESS PRONOUNCED APPEARANCE AND LESS WALL THICKENING OF LUCENT/CAVITARY | | REGIONS IN THE PERIPHERAL RIGHT LUNG COMPARED WITH CT OF NOVEMBER 2011, FAVORING | | RESIDUAL SEQUELA OF THE PREVIOUSLY REPORTED HISTORY OF EMPYEMA. THERE IS SCANT | | RESIDUAL RIGHT BASILAR PLEURAL FLUID AND SIMILAR ELEVATION OF THE HEMIDIAPHRAGM. | | NO ADENOPATHY OR OTHER SUSPICIOUS FINDING IS PRESENT. | | | | 2. TWO STABLE, SMALL LEFT UPPER LOBE NODULES. | | | | 3. PERSISTENT ENLARGEMENT OF THE MAIN PULMONARY ARTERY, SUGGESTING PULMONARY | | ARTERIAL HYPERTENSION. | | | | Dictated and Signed by: Patrick Simmons MD | | Electronically signed: 04/25/2014 7:04 AM | + + + +---------+ + + | Performing | Address | City/State/Zipcode | Phone Number | | Organization | | | | + +---------+ + + | [facility] | | | [phone] | + +---------+ + + | [facility] | | | [phone] | + +---------+ + + documented in this encounter Visit Diagnoses + + | Diagnosis | + + | Abnormal chest CT - Primary Nonspecific (abnormal) findings on radiological and other | | examination of other intrathoracic organs | + + | Chronic bronchitis Unspecified chronic bronchitis | + + | Other nonspecific abnormal finding of lung field | + + | Hypoxia, sleep related Idiopathic sleep related nonobstructive alveolar | | hypoventilation | + + documented in this encounter
--- OUTSIDE RECORDS SUMMARY | ~2019-05-03 | XMS | Encounter Summary ---
Demographics + + + | Address | [address] | | | [place] [address] | + + + | Home Phone | | + + + | Preferred Language | Unknown | + + + | Marital Status | Single | + + + | Spiritism Affiliation | Unknown | + + + | Race | Unknown | + + + | Ethnic Group | Unknown | + + + Author + + + | Author | [facility] | | | and [place] | + + + | Organization | [facility] | | | [...] | | | | | [place] [address] | | + + + + + | Robson Min | ECON | Unknown | | + + + + + | Isabella Whitehead | ECON | Unknown | | + + + + + Care Team Providers + +------+ + | Care Land Title Examiner Name | Role | Phone | + +------+ + | Bart Ba DO | PCP | | + +------+ + Reason for Visit +---------+ + | Reason | Comments | +---------+ + | Results | | +---------+ + Encounter Details +--------+ + + + + | Date | Type | Department | Care Team | Description | +--------+ + + + + | 06/05/ | Telephone | [facility] [place] | Navdeep Grande, | Results | | 2015 | | PULMONARY [address] | MD [address] | | | | | [place], | [place] | | | | | [place] [address] | [phone] | | | | | [phone] | | | +--------+ + + + [...] + + +---------+ + | No | 0 Standard drinks | 0.0 | | | | or equivalent | | [...] | Jimbo Samayoa MD | | | 2019 | Visit | | [address] | | | | | | [place] | | | | | | [address] | | | | | | | | +--------+---------+ + + + | 07/26/ | Office | Pulmonology | Navdeep Grande, | | | 2019 | Visit | | MD [address] | | | | | | [place] | | | | | | [address] | | | | | | | | +--------+---------+ + + + + + +--------+ + + | Name | Type | Priori | Associated Diagnoses | Order Schedule | | | | ty | | | + + +--------+ + + | Oxygen, nocturnal | Respiratory | Routin | Alveolar | Expected: 06/05/2015 | | | Care | e | hypoventilation | (Approximate), | | | | | Hypoxemia | Expires: 06/05/2016 | + + +--------+ + + documented as of this encounter Visit Diagnoses + + | Diagnosis | + + | Alveolar hypoventilation - Primary Other dyspnea and respiratory abnormality | + + | Hypoxemia | + + documented in this encounter"
--- OUTSIDE RECORDS SUMMARY | ~2019-05-03 | XMS | Encounter Summary ---
Demographics + + + | Address | [address] | | | [place] [address] | + + + | Home Phone | | + + + | Preferred Language | Unknown | + + + | Marital Status | Single | + + + | Oriental Orthodox Affiliation | CHR | + + + [...] | | | | | [place] [address] | | + + + + + Care Team Providers + +------+ + | Care Plate Cutter Name | Role | Phone | + +------+ + PCP | Unavailable | + +------+ + Encounter Details +--------+ + + + + | Date | Type | Department | Care Team | Description | +--------+ + + + + | 11/03/ | Discharge | | Summary, Discharge | D/C Summary ODDS | | 2006 | Summary-Tra | | | | | | nscribed | | | | +--------+ + + + [...] + + documented as of this encounter Discharge Summaries Interface, Patrol Judge In - 01/21/2006 6:22 AM PDT [id number] LUZ CROWLEY [id number] Admission Date: 10/21/2005 Discharge Date: 11/03/2005 Staff Physician: Anibal Starr M.D. Principal Final Diagnosis: Right fibrothorax. Additional Diagnoses: 1. Psychogenic polydipsia. 2. Diabetes mellitus. 3. Rheumatoid arthritis. 4. Hypertension. Principal Procedure: Right thoracotomy and decortication. Additional Procedures: 1. Epidural catheter placement. 2. Endocrine consult. 3. Pain Service consult. 4. RT consult. 5. PT/OT consult. Reason for Admission: The patient was transferred to [facility] from an outside hospital for management of pneumonia, pleural effusion, and prolonged air leak. Hospital Course: The patient was transferred on October 21, 2005, from an outside hospital after a 2-week course of right-sided pneumonia and pleural effusion. A chest tube was placed at the outside facility and continued to show a large prolonged air leak. Chest x-rays demonstrated an incompletely expanded right lung with the chest in good position. Over the next several days, the patient was treated with IV antibiotics and continued chest tube to Pleurovac on both water seal and wall suction. The air leaks did not improve. On hospital day #6, right lower extremity edema was noted with some discomfort. A duplex ultrasound was negative for deep venous thrombosis. On October 27, 2005, hospital day #7, Ms. Min was taken to the operating room where she underwent a right VATS. This was later converted to a thoracotomy when it was discovered that the degree of empyema and fibrothorax would not allow her to be decorticated with VATS. Decortication was completed. In addition, there was evidence of a right lower lobe ruptured abscess. The middle lobe did not fully expand. Three chest tubes were placed into the pleural space, and the patient was transferred to the Intensive Care Unit still intubated. On postoperative day #1, the patient was extubated and transferred to the perez in good condition. Postoperative day #2, the patient experienced decreased oxygen saturation that was thought to be due to over sedation. This was treated with BiPAP, and the patient slowly improved. At this time, an Endocrine consult was also obtained due to observation of excessive drinking of water. The patient was routinely drinking greater than 3 L of water a day. The oil well logger ultimately deemed this to be a psychogenic polydipsia and no further treatment was initiated for this other than limiting her water intake to less than 2 L a day. On postoperative day #3, one chest tube was removed, and she was restarted on her oral antihyperglycemics. On postoperative day #4, she did start showing signs of superficial infection at the epidural site. This was removed at this time. There was no evidence of an epidural space infection. The second chest tube was also removed at this time. By postoperative day #6, the last chest tube was removed, and she was transitioned to oral pain medications. By postoperative day #7, she was tolerating oral pain medications, ambulating, and tolerating a regular diet. Therefore, the decision was made to discharge the patient home on oral antibiotics. 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 Fungal and AFB stains were negative. No bacterial growth was detected. Discharge Medication(s): 1. Ciprofloxacin 500 mg p.o. every 12 hours for 14 days, 28 dispensed with 0 refills. 2. OxyContin 10 mg p.o. q.12 h. for 10 days, 20 dispensed with no refills. 3. Oxycodone 5 to 15 mg p.o. q.3 h. as needed for pain, 100 dispensed with 0 refills. 4. Docusate 100 mg p.o. twice daily, 30 dispensed with 1 refill. 5. NPH Insulin 20 units subcutaneous 3 times daily, 2 bottles dispensed with 4 refills. Ms. Min should also continue to take her home medications which include the followin. Glucophage 1000 mg p.o. every morning and 1500 mg p.o. every evening. 2. Glucotrol 10 mg p.o. daily. 3. Paxil 40 mg p.o. daily. 4. Levothyroxine 300 mcg p.o. daily. 5. Methotrexate 25 mg weekly. Discharge Instruction(s): The patient should observe a diabetic diet. She is encouraged to shower daily and keep the incisions clean and dry. She should refrain from lifting greater than 10 pounds for the next 2 weeks. Followup Appointment: She will follow up with her primary care provider within 1 week. Valerie Stone M.D. / [id number] / [id number] / [id number] / Electronically signed by Anibal Starr 01-20-2006 04:02:17 PM documented i n this encounter Plan of Treatment Not on filedocumented as of this encounter Visit Diagnoses Not on filedocumented in this encounter"
--- OUTSIDE RECORDS SUMMARY | ~2019-05-03 | XMS | Encounter Summary ---
Demographics + + + | Address | [address] | | | [place] [address] | + + + | Home Phone | | + + + | Preferred Language | Unknown | + + + | Marital Status | Single | + + + | Yazidism Affiliation | Unknown | + + + | Race | Unknown | + + + | Ethnic Group | Unknown | + + + Author + + + | Author | [facility] | | | and [place] | + + + | Organization | [facility] | | | and [...] | | | | | [place] [address] | | + + + + + | Robson Min | ECON | Unknown | | + + + + + | Isabella Whitehead | ECON | Unknown | | + + + + + Care Team Providers + +------+ + | Care Business Process Modeler Name | Role | Phone | + +------+ + PCP | Unavailable | + +------+ + Encounter Details +--------+ + + + + | Date | Type | Department | Care Team | Description | +--------+ + + + + | 12/30/ | Abstract | [facility] | [facility] | | | 2011 | | Conversion Location | SR | | | | | [phone] | | | +--------+ + + + [...] + + + | Blood Pressure | 90/62 | 12/14/2011 12:00 AM | | | | | PDT | | + + + + + | Pulse | - | - | | + + + + + | Temperature | - | - | | + + + + + | Respiratory Rate | - | - | | + + + + + | Oxygen Saturation | - | - | | + + + + + | Inhaled Oxygen | - | - | | | Concentration | | | | + + + + + | Weight | 98 kg (216 lb) | 12/14/2011 12:00 AM | | | | | PDT | | + + + + + | Height | 167.6 cm (5' 6") | 09/22/2011 12:00 AM | | | | | PDT | | + + + + + | Body Mass Index | 34.86 | 09/22/2011 12:00 AM | | | | | PDT | | + + + + + documented in this encounter Plan of Treatment +--------+---------+ + + + | Date | Type | Specialty | Care Team | Description | +--------+---------+ + + + | 06/19/ | Office | Neurology | Jimbo Samayoa MD | | | 2019 | Visit | | [address] | | | | | | [place] | | | | | | [address] | | | | | | | | +--------+---------+ + + + | 07/26/ | Office | Pulmonology | Navdeep Grande, | | | 2019 | Visit | | MD Cely [address] | | | | | | [place] | | | | | | [id number] | | | | | | | | +--------+---------+ + + + documented as of this encounter Visit Diagnoses Not on filedocumented in this encounter
--- OUTSIDE RECORDS SUMMARY | ~2019-05-03 | XMS | Encounter Summary ---
Demographics + + + | Address | [address] | | | [place] [address] | + + + | Home Phone | | + + + | Preferred Language | Unknown | + + + | Marital Status | Single | + + + | Alevism Affiliation | Unknown | + + + | Race | Unknown | + + + | Ethnic Group | Unknown | + + + Author + + + | Author | [facility] | | | and [place] | + + + | Organization | [facility] [...] | | | | | [place] [address] | | + + + + + | Robson Min | ECON | Unknown | | + + + + + | Isabella Whitehead | ECON | Unknown | | + + + + + Care Team Providers + +------+ + | Care Casting And Pasting Supervisor Name | Role | Phone | + +------+ + | Bart Ba DO | PCP | | + +------+ + Encounter Details +--------+ + + + + | Date | Type | Department | Care Team | Description | +--------+ + + + + | 05/22/ | Abstract | [facility] | Navdeep Grande, | | | 2015 | | PULMONARY [address] | MD [address] | | | | | [place], | [place] | | | | | [place] [address] | [id number] | | | | | [phone] | | | +--------+ + + + [...] Description | +--------+---------+ + + + | / | Office | Neurology | Jimbo Samayoa MD | | | 2019 | Visit | | [address] | | | | | | [place] | | | | | | [address] | | | | | | | | +--------+---------+ + + + | 07/26/ | Office | Pulmonology | Navdeep Grande, | | | 2019 | Visit | | MD Cely GORE | | | | | | [place] | | | | | | [id number] | | | | | | | | +--------+---------+ + + + documented as of this encounter Visit Diagnoses Not on filedocumented in this encounter"
--- OUTSIDE RECORDS SUMMARY | ~2019-05-03 | XMS | Encounter Summary ---
Demographics + + + | Address | [address] | | | [place] [address] | + + + | Home Phone | | + + + | Preferred Language | Unknown | + + + | Marital Status | Single | + + + | Restoration Affiliation | Unknown | + + + | Race | Unknown | + + + | Ethnic Group | Unknown | + + + Author + + + | Author | [facility] | | | and [place] | + + + | Organization | [facility] | | | [...] | | | | | [place] [address] | | + + + + + | Robson Min | ECON | Unknown | | + + + + + | Isabella Whitehead | ECON | Unknown | | + + + + + Care Team Providers + +------+ + | Care Account Installer Name | Role | Phone | + +------+ + | Juanito Avery | DOMONIQUE | | + +------+ + Reason for Visit + + + | Reason | Comments | + + + | Case Management | | + + + Encounter Details +--------+ + + + + | Date | Type | Department | Care Team | Description | +--------+ + + + + | 08/24/ | Telephone | [facility] | Beth Kelly | Case Management | | 2019 | | HOSPITAL CASE | G, Case | | | | | MANAGEMENT [address] | Java Analyst-Clinical | | | | | [address] | | | | | | [place] | | | | | | [address] | | | | | | [phone] | | | +--------+ + + + [...] [place] | | | | | | [address] | | | | | | | | +--------+---------+ + + + | 07/26/ | Office | Pulmonology | Navdeep Grande, | | | 2019 | Visit | | [address] | | | | | | [place] | | | | | | [address] | | | | | | | | +--------+---------+ + + + documented as of this encounter Visit Diagnoses Not on filedocumented in this encounter"
--- OUTSIDE RECORDS SUMMARY | ~2019-05-03 | XMS | Clinical Summary ---
Demographics + + + | Address | [address] | | | [place] [address] | + + + | Home Phone | | + + + | Preferred Language | Unknown | + + + | Marital Status | Single | + + + | Hinduism Affiliation | Unknown | + + + | Race | Unknown | + + + | Ethnic Group | Unknown | + + + Author + + + | Author | [facility] | | | and [place] | + + + | Organization | [facility] | | | and [place] | + + + | Address | Unknown | + + + | Phone | Unavailable | + + + Support + + + + + | Name | Relationship | Address | Phone | + + + + + | Isabella Escobar | ECON | [address] | | | | | [place] [address] | | + + + + + | Robson Escobar | ECON | Unknown | | + + + + + | Isabella Whitehead | ECON | Unknown | | + + + + + Care Team Providers + +------+ + | Care Microphone Operator Name | Role | Phone | + +------+ + | Adele Avery | DOMONIQUE | | + +------+ + Allergies + + + + + + | Active Allergy | Reactions | Severity | Noted | Comments | | | | | Date | | + + + + + + | Adhesive & Tape | Other (See Comments) | Medium | 03/21/20 | Other reaction(s): | | | | | 13 | Other (See | | | | | | Comments) Skin | | | | | | sensitivity Skin | | | | | | sensitivity | + + + + + + | Azithromycin | Hives | | 09/10/19 | | | | | | 12 | | + + + + + + | Lamotrigine | | | 10/08/19 | | | | | | 12 | | + + + + + + Medications + + + +---------+------+------+-------+ | Medication | Sig | Dispensed | Refills | Star | End | Statu | | | | | | t | Date | s | | | | | | Date | | | + + + +---------+------+------+-------+ | traZODone | Take 300 mg by mouth | | 0 | | | Activ | | (DESYREL) 100 mg | nightly. | | | | | e | | tablet | | | | | | | + + + +---------+------+------+-------+ | LANTUS SOLOSTAR | Inject 10 Units | | 0 | 02/0 | | Activ | | 100 UNIT/ML | under the skin | | | 6/20 | | e | | injection (pen) | nightly. | | | 17 | | | + + + +---------+------+------+-------+ | metFORMIN | Take 500 mg by mouth | | 0 | | | Activ | | (GLUCOPHAGE) 500 mg | 2 times daily (with | | | | | e | | tablet | breakfast & | | | | | | | | dinner). | | | | | | + + + +---------+------+------+-------+ | tiZANidine | Take 8 mg by mouth | | 0 | | | Activ | | (ZANAFLEX) 4 mg | nightly as needed. | | | | | e | | tablet | | | | | | | + + + +---------+------+------+-------+ | azaTHIOprine | Take 50-100 tablets | | 0 | 08/0 | | Activ | | (IMURAN) 50 mg | by mouth (see | | | 2/20 | | e | | tablet | instruction). Take | | | 18 | | | | | 50 mg in the morning | | | | | | | | and 100 mg nightly | | | | | | + + + +---------+------+------+-------+ | magnesium oxide | Take 1 tablet by | | 0 | 07/2 | | Activ | | (MAG-OX) 400 mg | mouth Daily. | | | 11/05 | | e | | tablet | | | | 18 | | | + + + +---------+------+------+-------+ | torsemide | Take 20 mg by mouth | | 0 | 08/2 | | Activ | | (DEMADEX) 20 mg | Daily. | | | 05/08 | | e | | tablet | | | | 18 | | | + + + +---------+------+------+-------+ | aspirin 81 mg EC | Take 81 mg by mouth | | 0 | | | Activ | | tablet | Daily. | | | | | e | + + + +---------+------+------+-------+ | buprenorphine | Place 1 patch onto | | 0 | | | Activ | | (BUTRANS) 20 mcg/hr | the skin Once a | | | | | e | | patch | week. | | | | | | + + + +---------+------+------+-------+ | busPIRone (BUSPAR) | Take 10 mg by mouth | | 0 | | | Activ | | 10 MG tablet | every morning. | | | | | e | + + + +---------+------+------+-------+ | pregabalin | Take 150-300 mg by | | 0 | | | Activ | | (LYRICA) 150 MG | mouth (see | | | | | e | | capsule | instruction). Take | | | | | | | | 150 mg in the | | | | | | | | morning and 300 mg | | | | | | | | in the evening | | | | | | + + + +---------+------+------+-------+ | vortioxetine | Take 10 mg by mouth | | 0 | | | Activ | | (TRINTELLIX) 10 mg | every morning. | | | | | e | | tablet | | | | | | | + + + +---------+------+------+-------+ | albuterol (PROAIR | Inhale 2 puffs into | 1 | 11 | 05/1 | | Activ | | HFA) 90 mcg/puff | the lungs every 4 | Inhaler | | 0/20 | | e | | inhaler | hours as needed for | | | 19 | | | | | Wheezing or | | | | | | | | Shortness of Breath. | | | | | | + + + +---------+------+------+-------+ | Respiratory | Portable oxygen | 1 each | 0 | 05/1 | | Activ | | Therapy Supplies | concentrator to | | | 0/20 | | e | | MISC | provide O2 at 1 l/m | | | 19 | | | | | continuous via nasal | | | | | | | | cannula. Duration: | | | | | | | | Lifetime Dx: COPD | | | | | | | | J44.9 | | | | | | + + + +---------+------+------+-------+ | cloNIDine | Place 1 patch onto | | 0 | 05/1 | | Activ | | (CATAPRES) 0.3 mg/24 | the skin Once a | | | 7/20 | | e | | hr patch | week. | | | 19 | | | + + + +---------+------+------+-------+ | Continuous Blood | | | 0 | 07/1 | | Activ | | Gluc Sensor | | | | 6/20 | | e | | (FREESTYLE HUAN 14 | | | | 19 | | | | DAY SENSOR) MISC | | | | | | | + + + +---------+------+------+-------+ | atorvaSTATin | Take 20 mg by mouth | | 0 | 07/1 | | Activ | | (LIPITOR) 20 mg | nightly. | | | 0/20 | | e | | tablet | | | | 19 | | | + + + +---------+------+------+-------+ | BANOPHEN 25 MG | Take 25 mg by mouth | | 0 | 08/1 | | Activ | | capsule | nightly as needed. | | | 6/20 | | e | | | | | | 19 | | | + + + +---------+------+------+-------+ | varenicline | Take 1 mg by mouth 2 | | 0 | | | Activ | | (CHANTIX) 1 MG | times daily. | | | | | e | | tablet | | | | | | | + + + +---------+------+------+-------+ | ergocalciferol | Take 50,000 Units by | | 0 | 09/2 | | Activ | | (VITAMIN D-2) 50,000 | mouth Once a week. | | | 6/20 | | e | | units capsule | | | | 19 | | | + + + +---------+------+------+-------+ | levothyroxine | Take 300 mcg by | | 0 | 10/0 | | Activ | | (SYNTHROID) 300 mcg | mouth every morning | | | /20 | | e | | tablet | (before breakfast). | | | 19 | | | + + + +---------+------+------+-------+ | AMITIZA 24 MCG | Take 24 mcg by mouth | | 0 | 12/0 | | Activ | | capsule | Daily. | | | 620 | | e | | | | | | 19 | | | + + + +---------+------+------+-------+ | tiotropium | Inhale 18 mcg into | | 0 | | | Activ | | (SPIRIVA) 18 mcg | the lungs Daily. | | | | | e | | inhalation capsule | | | | | | | + + + +---------+------+------+-------+ | ziprasidone | Take 60 mg by mouth | | 0 | | | Activ | | (GEODON) 60 MG | nightly. | | | | | e | | capsule | | | | | | | + + + +---------+------+------+-------+ | metoprolol | Take 1 tablet by | 30 | 2 | 01/0 | | Activ | | succinate | mouth Daily. | tablet | | 2/20 | | e | | (TOPROL-XL) 50 mg 24 | | | | 20 | | | | hr tablet | | | | | | | + + + +---------+------+------+-------+ | omeprazole | Take 1 capsule by | 90 | 3 | 06/0 | 12/1 | Disco | | (PRILOSEC) 20 mg | mouth every morning | capsule | | 08/06 | 01/06 | ntinu | | capsule | (before breakfast). | | | 14 | 19 | ed | | | | | | | | (Ther | | | | | | | | apy | | | | | | | | compl | | | | | | | | eted) | + + + +---------+------+------+-------+ | sulfaSALAzine | Take 1,000 mg by | | 0 | 04/19 | 03/19 | Disco | | (AZULFIDINE) 500 MG | mouth 2 times daily. | | | 10/06 | 01/06 | ntinu | | EC tablet | | | | 17 | 19 | ed | | | | | | | | (Ther | | | | | | | | apy | | | | | | | | compl | | | | | | | | eted) | + + + +---------+------+------+-------+ | ziprasidone | Take 80 mg by mouth | | 0 | | | Disco | | (GEODON) 80 MG | nightly. | | | | 06/08 | ntinu | | capsule | | | | | 20 | ed | + + + +---------+------+------+-------+ | torsemide | Take 5 mg by mouth | | 0 | | 03/19 | Disco | | (DEMADEX) 5 mg | Daily. Take with | | | | 01/06 | ntinu | | tablet | 20mg for total of | | | | 19 | ed | | | 25mg | | | | | (Ther | | | | | | | | apy | | | | | | | | compl | | | | | | | | eted) | + + + +---------+------+------+-------+ | | Inhale 2 puffs into | 1 | 3 | 08/17 | 03/21 | Disco | | fluticasone-salmeter | the lungs 2 times | Inhaler | | 07/06 | 05/08 | ntinu | | ol (ADVAIR HFA) | daily. Rinse mouth | | | 19 | 19 | ed | | 115-21 MCG/ACT | and throat after | | | | | (Alte | | inhaler | use. | | | | | rnate | | | | | | | | | | | | | | | | thera | | | | | | | | py) | + + + +---------+------+------+-------+ | roflumilast | Take 1 tablet by | 30 | 5 | 06/0 | 03/19 | Disco | | (DALIRESP) 500 mcg | mouth Daily. | tablet | | | 01/06 | ntinu | | tabletIndications: | | | | 19 | 19 | ed | | COPD, frequent | | | | | | (Ther | | exacerbations (HCC) | | | | | | apy | | | | | | | | compl | | | | | | | | eted) | + + + +---------+------+------+-------+ | metoclopramide | Take 10 mg by mouth | | 0 | 10/17 | 03/19 | Disco | | (REGLAN) 10 mg | as needed. | | | 11/05 | 01/06 | ntinu | | tablet | | | | 19 | 19 | ed | | | | | | | | (Ther | | | | | | | | apy | | | | | | | | compl | | | | | | | | eted) | + + + +---------+------+------+-------+ | DOK 100 MG capsule | Take 100 mg by mouth | | 0 | /0 | 03/19 | Disco | | | 2 times daily. | | | 11/05 | 01/06 | ntinu | | | | | | 19 | 19 | ed | | | | | | | | (Ther | | | | | | | | apy | | | | | | | | compl | | | | | | | | eted) | + + + +---------+------+------+-------+ | ondansetron | Take 4 mg by mouth | | 0 | 09/2 | 12/1 | Disco | | (ZOFRAN) 4 mg tablet | as needed. | | | 0/20 | 9/20 | ntinu | | | | | | 19 | 19 | ed | | | | | | | | (Ther | | | | | | | | apy | | | | | | | | compl | | | | | | | | eted) | + + + +---------+------+------+-------+ | ziprasidone | Take 60 mg by mouth | | 0 | | 12/1 | Disco | | (GEODON) 60 MG | nightly. | | | | 9/20 | ntinu | | capsule | | | | | 19 | ed | | | | | | | | (Ther | | | | | | | | apy | | | | | | | | compl | | | | | | | | eted) | + + + +---------+------+------+-------+ + + +-------+ +------+------+-------+ | Hospital, Clinic, or | Ordered | Route | Frequency | Star | End | Statu | | Other Facility | Dose | | | t | Date | s | | Administered | | | | Date | | | | Medication | | | | | | | + + +-------+ +------+------+-------+ | onabotulinumtoxinA | 200 Units | IM | ONCE | 03/20 | 03/20 | Ended | | (BOTOX) injection | | | | 0/20 | 0/20 | | | 200 | | | | 19 | 19 | | | UnitsIndications: | | | | | | | | Intractable migraine | | | | | | | | with aura without | | | | | | | | status migrainosus | | | | | | | + + +-------+ +------+------+-------+ Active Problems + + + | Problem | Noted Date | + + + | Chest pain | 04/18/2019 | + + + | Diabetic retinopathy | 01/25/2019 | + + + | COPD, frequent exacerbations | 09/22/2018 | + + + | Confusion and disorientation | 08/15/2018 | + + + | Headache | 07/23/2018 | + + + + + | Overview: Current Treatment: verapamil extended release | | 2040 mg, venlafaxine extended release 225 mg, Lyrica 03/08/18 | | MRI of Brain: | + + + + + | Disorientation | 02/23/2018 | + + + + + | Overview: 03/08/18 MRI of Brain: | | 03/15/18 EEG: Normal awake and drowsy EEG | + + + + + | Diabetic polyneuropathy associated with type 2 diabetes mellitus | 02/23/2018 | + + + | JESUSITA and COPD overlap syndrome | 12/10/2017 | + + + | Hypoxemia | 11/19/2017 | + + + | Bipolar II disorder | 05/23/2015 | + + + | Alveolar hypoventilation | 05/23/2015 | + + + | Methamphetamine abuse | 09/06/2014 | + + + | COPD, moderate | 04/24/2014 | + + + | Local infection of skin and subcutaneous tissue | 02/08/2013 | + + + | Type II diabetes mellitus | 10/11/2012 | + + + | Rheumatoid arthritis | 10/11/2012 | + + + + + | Overview: Overview: | | [facility] in [place] | | | | IMO Problem List Replacement - 2016_Regulatory_1 | + + + + + | Hypothyroidism | 10/11/2012 | + + + | Tobacco use disorder | 10/11/2012 | + + + | Family history of diabetes mellitus | 06/30/2011 | + + + | Hypertension | | + + + Resolved Problems + + + + | Problem | Noted | Resolved | | | Date | Date | + + + + | Acute respiratory failure | 08/16/19 | | | | 19 | 9 | + + + + | COPD exacerbation | 08/16/19 | | | | 19 | 9 | + + + + | COPD exacerbation | 07/19/19 | | | | 19 | 9 | + + + + | Influenza | 11/20/19 | | | | 18 | 9 | + + + + | Hypoxia, sleep related | 09/07/19 | | | | 14 | 7 | + + + + | Pneumonia | 03/20/20 | | | | 13 | 9 | + + + + | Chronic bronchitis | 10/19/19 | | | | 13 | 6 | + + + + | OTHER DISEASES OF LUNG NOT ELSEWHERE CLASSIFIED | 09/10/19 | | | | 12 | 3 | + + + + | Other nonspecific abnormal finding of lung field | | | | | | 6 | + + + + | Bronchiectasis | | | | | | 3 | + + + + | Empyema lung | | | | | | 3 | + + + + + + | Overview: right | + + + +---+ + | Abnormal chest CT | | | | | | 3 | + +---+ + Encounters +--------+ + + + + | Date | Type | Specialty | Care Team | Description | +--------+ + + + + | 04/18/ | Hospital | Internal Medicine | Loi De Jesus, | NSTEMI (non-ST | | 2019 - | Encounter | | MD Hitchcock, | elevated myocardial | | | | | MD Heber Whiteside, | infarction) ([facility]) | | 04/20/ | | | DO Iva | (Primary Dx); Chest | | 2019 | | | | pain, unspecified | | | | | | type; COPD, frequent | | | | | | exacerbations ([facility]) | +--------+ + + + + | 04/07/ | Procedure | Neurology | Jimbo Samayoa MD | Intractable migraine | | 2018 | visit | | | with aura without | | | | | | status migrainosus | | | | | | (Primary Dx) | +--------+ + + + + | 04/06/ | Office | Cardiology | Laine Batista DO | Hypertension, | | 2018 | Visit | | | unspecified type | | | | | | (Primary Dx); Type 2 | | | | | | diabetes mellitus | | | | | | with hyperosmolarity | | | | | | without coma, | | | | | | without long-term | | | | | | current use of | | | | | | insulin (HCC); | | | | | | Alveolar | | | | | | hypoventilation; JESUSITA | | | | | | and COPD overlap | | | | | | syndrome (HCC) | +--------+ + + + + | 02/13/ | Orders Only | Neurology | Jimbo Samayoa MD | Intractable migraine | | 2019 | | | | with aura without | | | | | | status migrainosus | | | | | | (Primary Dx) | +--------+ + + + + | 02/13/ | Telephone | Neurology | Jimbo Samayoa MD | Treatment Order | | 2018 | | | | | +--------+ + + + + from Last 3 Months Immunizations + + + + | Name | Administration Dates | Next Due | + + + + | INFLUENZA PF 18 Y OR | 01/17/2014, 02/17/2013, 02/03/2012 | | | >,TRIVALENT | | | | RECOMBINANT | | | + + + + | INFLUENZA PF | 02/17/2016, 02/15/2015 | | | QUAD(PED/ADOL/ADULT) | | | | ,PSKT or VIAL | | | + + + + | INFLUENZA PF | 02/19/2014, 01/17/2014, 02/18/2010, | | | TRIVALENT(PED/ADOL/A | 03/07/2009 | | | WAGNER PSKT | | | + + + + | INFLUENZA QUADR | 02/10/2018, 01/27/2017 | | | W/PRES | | | | (PED/ADOL/ADULT) | | | | MULTIDOSE | | | + + + + | INFLUENZA, [id number], | 03/09/2009 | | | UNSPECIFIED | | | + + + + | INFLUENZA, | 01/10/2015, 02/17/2013, 01/10/2013, | | | UNSPECIFIED | 02/03/2012, 02/04/2011, 04/27/2000 | | | FORMULATION | | | + + + + | PNEUMOCOCCAL | 04/24/2014, 03/19/2013 | | | CONJUGATE 13-VALENT | | | | (PCV13) | | | + + + + | PNEUMOCOCCAL | 01/10/2015, 03/22/2013, 04/04/2009 | | | POLYSACCHARIDE | | | | 23-VALENT (PPSV23) | | | + + + + | TDAP, (ADOL/ADULT) | 08/29/2011 | | + + + + Family [...] | + + +------+ + | Ulcer disease | Father | | | + + [...] | + + +------+ + | Ulcer disease | Mother | | | + + [...] | | + + +------+ + + +-------+--------+ + | Relation | Name | Status | Comments | + +-------+--------+ + | Brother | | | | + +-------+--------+ + | Brother | | | | + +-------+--------+ + | Brother | | | | + +-------+--------+ + | Father | | Alive | | + +-------+--------+ + | Mother | | Alive | | + +-------+--------+ + | Other | | | | + +-------+--------+ + | Other | | | | + +-------+--------+ + | Other | | | | + +-------+--------+ + | Paternal Grandfather | | | | + +-------+--------+ + | Paternal Grandmother | | | | + +-------+--------+ + | Son | alive | Alive | | + +-------+--------+ + Social History + + + +--------+ [...] + | Tobacco Cessation: Ready to Quit: Yes | | Comments: 05/26/16: Currently using [...] recent travel history available. | + + Last Filed Vital Signs + + + + + | Vital Sign | Reading | Time Taken | Comments | + + + + + | Blood Pressure | 147/97 | 04/20/2019 12:01 PM | | | | | PST | | + + + + + | Pulse | 63 | 04/20/2019 7:22 AM | | | | | PST | | + + + + + | Temperature | 36.8 C (98.2 F) | 04/20/2019 7:22 AM | | | | | PST | | + + + + + | Respiratory Rate | 18 | 04/20/2019 7:22 AM | | | | | PST | | + + + + + | Oxygen Saturation | 96% | 04/20/2019 7:22 AM | | | | | PST | | + + + + + | Inhaled Oxygen | - | - | | | Concentration | | | | + + + + + | Weight | 98.8 kg (217 lb 13 | 04/20/2019 3:26 AM | | | | oz) | PST | | + + + + + | Height | 165.1 cm (5' 5") | 04/07/2019 3:53 PM | | | | | PST | | + + + + + | Body Mass Index | 36.25 | 04/07/2019 3:53 PM | | | | | PST | | + + + + + Plan of Treatment +--------+---------+ + + + | Date | Type | Specialty | Care Team | Description | +--------+---------+ + + + | 06/19/ | Office | Neurology | Jimbo Samayoa MD | | | 2019 | Visit | | [address] | | | | | | [place] | | | | | | [address] | | | | | | | | +--------+---------+ + + + | 07/26/ | Office | Pulmonology | Navdeep Grande, | | | 2019 | Visit | | [address] | | | | | | [place] | | | | | | [id number] | | | | | | | | +--------+---------+ + + + + + + + + | Health Maintenance | Due Date | Last Done | Comments | + + + + + | Diabetic Eye Exam | 02/28/199 | | | | | 0 | | | + + + + + | Diabetic Foot Exam | | | | | | 0 | | | + + + + + | Cervical Cancer | | | | | Screening (Pap) | 2 | | | + + + + + | Statin Therapy | | | | | (optimal intensity) | 5 | | | + + + + + | Microalbumin | | 09/06/2014, 09/06/2014 | | | Screening | 6 | | | + + + + + | Breast Cancer | | | | | Screening | 7 | | | + + + + + | Vaccine: Influenza | | 02/10/2018, 01/27/2017, | | | (#1) | 9 | 02/17/2016, Additional history | | | | | exists | | + + + + + | Hemoglobin A1c | | 04/18/2019, 09/06/2014, | | | Screening | 0 | 07/27/2013 | | + + + + + | Vaccine: | | 08/29/2011 | | | Dtap/Tdap/Td (2 - | 2 | | | | Td) | | | | + + + + + | Vaccine: | Completed | 01/10/2015, 04/24/2014, | | | Pneumococcal 19-64 | | 03/22/2013, Additional history | | | | | exists | | + + + + + Procedures + +--------+ + + + | Procedure Name | Priori | Date/Time | Associated Diagnosis | Comments | | | ty | | | | + +--------+ + + + | BASIC METABOLIC | Routin | 04/20/2019 | | Results for this | | PANEL | e | 6:16 AM | | procedure are in the | | | | PST | | results section. | + +--------+ + + + | PHOSPHORUS | Routin | 04/20/2019 | | Results for this | | | e | 6:16 AM | | procedure are in the | | | | PST | | results section. | + +--------+ + + + | MAGNESIUM | Routin | 04/20/2019 | | Results for this | | | e | 6:16 AM | | procedure are in the | | | | PST | | results section. | + +--------+ + + + | CBC NO DIFFERENTIAL | Routin | 04/20/2019 | | Results for this | | | e | 6:16 AM | | procedure are in the | | | | PST | | results section. | + +--------+ + + + | NM NUCLEAR STRESS | LARS | 04/19/2019 | | Results for this | | TEST (EXERCISE) | | 12:17 PM | | procedure are in the | | | | PST | | results section. | + +--------+ + + + | ARRHYTHMIA MONITOR - | | 04/19/2019 | | Results for this | | EXTERNAL SCAN | | 12:00 AM | | procedure are in the | | | | PST | | results section. | + +--------+ + + + | TROPONIN I | STAT | 04/18/2019 | | Results for this | | | | 11:07 PM | | procedure are in the | | | | PST | | results section. | + +--------+ + + + | TROPONIN I | Routin | 04/18/2019 | | Results for this | | | e | 4:21 PM | | procedure are in the | | | | PST | | results section. | + +--------+ + + + | URINALYSIS WITH | Add-On | 04/18/2019 | | Results for this | | MICROSCOPIC | | 3:22 PM | | procedure are in the | | | | PST | | results section. | + +--------+ + + + | HC DRUG TEST PRSMV | LARS | 04/18/2019 | | Results for this | | CHEM SARANYA BELLO | | 2:25 PM | | procedure are in the | | | | PST | | results section. | + +--------+ + + + | ECG 12 LEAD | STAT | 04/18/2019 | | Results for this | | | | 12:07 PM | | procedure are in the | | | | PST | | results section. | + +--------+ + + + | LIPID PANEL | Add-On | 04/18/2019 | | Results for this | | | | 11:54 AM | | procedure are in the | | | | PST | | results section. | + +--------+ + + + | HEMOGLOBIN A1C | Add-On | 04/18/2019 | | Results for this | | | | 11:54 AM | | procedure are in the | | | | PST | | results section. | + +--------+ + + + | PROTIME INR | STAT | 04/18/2019 | | Results for this | | | | 11:54 AM | | procedure are in the | | | | PST | | results section. | + +--------+ + + + | TROPONIN I | STAT | 04/18/2019 | | Results for this | | | | 11:54 AM | | procedure are in the | | | | PST | | results section. | + +--------+ + + + | COMPREHENSIVE | STAT | 04/18/2019 | | Results for this | | METABOLIC PANEL | | 11:54 AM | | procedure are in the | | | | PST | | results section. | + +--------+ + + + | CBC WITH | STAT | 04/18/2019 | | Results for this | | DIFFERENTIAL | | 11:54 AM | | procedure are in the | | | | PST | | results section. | + +--------+ + + + | ED INFORMATION | Routin | 04/18/2019 | | | | EXCHANGE | e | 11:30 AM | | | | | | PST | | | + +--------+ + + + +---+--------+ | | | | | Proced | | | ure | | | Note - | | | Demario, | | | Lab In | | | | | | Hlseve | | | n - | | | 04/18/ | | | 2018 | | | 11:31 | | | AM PST | | | | | | Format | | | ting | | | of | | | this | | | note | | | might | | | be | | | differ | | | ent | | | from | | | the | | | origin | | | al.COL | | | LECTIV | | | E?NOTI | | | FICATI | | | ON?/ | | | | | | 9 | | | 11:30? | | | LUZ, | | | | | | CARLINE | | | ?MRN: | | | [id number] | | | [id number] | | | riteri | | | a Met | | | 2 in | | | 2 | | | Care | | | Guidel | | | inesSe | | | curity | | | and | | | Safety | | | No | | | recent | | | | | | Securi | | | ty | | | Events | | | | | | curren | | | tly on | | | | | | fileED | | | Care | | | Guidel | | | claudio | | | from | | | [facility] | | | ys - | | | [place] | | | laLast | | | | | | Update | | | d: | | | 4/29/1 | | | 9 9:38 | | | AM | | | Care | | | Coordi | | | nation | | | :Curre | | | ntly | | | engage | | | d in | | | mental | | | | | | health | | | | | | servic | | | es | | | with | | | [facility] | | | ys.? | | | Please | | | | | | contac | | | t | | | [facility] | | | ys | | | with | | | mental | | | | | | health | | | | | | concer | | | ns.? | | | [place] | | | ton/[place] | | | [place] | | | [place] | | | ter:? | | | [phone] | | | ? | | | [place] | | | ton:? | | | [phone] | | | [phone]. | | | These | | | are | | | guidel | | | claudio | | | and | | | the | | | provid | | | er | | | should | | | | | | exerci | | | se | | | clinic | | | al | | | judgme | | | nt | | | when | | | provid | | | ing | | | care.P | | | rescri | | | ption | | | Drug | | | Report | | | (12 | | | Mo.)PD | | | MP | | | query | | | found | | | no | | | report | | | .E.D. | | | Visit | | | Count | | | (12 | | | mo.)Fa | | | cility | | | | | | Visits | | | Low | | | Acuity | | | | | | [facility] | | | [facility] | | | al | | | [facility] | | | l | | | [facility] | | | 1 0 | | | [facility] | | | al 1 0 | | | [facility] | | | [facility] | | | al 5 0 | | | Total | | | 7 0 | | | Note: | | | Visits | | | | | | indica | | | te | | | total | | | known | | | visits | | | . | | | Medica | | | id Low | | | | | | Acuity | | | Dx | | | are | | | the | | | number | | | of | | | primar | | | y | | | diagno | | | ses on | | | the | | | Medica | | | id's | | | Low | | | Acuity | | | dx | | | list. | | | | | | Recent | | | | | | Emerge | | | ncy | | | Depart | | | ment | | | Visit | | | [place] | | | yDate | | | Facili | | | ty | | | City | | | State | | | Type | | | Diagno | | | ses or | | | Chief | | | | | | Compla | | | int | | | Dec | | | 31, | | | 2019 | | | [facility] | | | al | | | [facility] | | | [place] | | | [place] | | | Emerge | | | ncy | | | Dec | | | 31, | | | 2019 | | | [facility] | [facility] | | | [place] | | | [place] | | | Emerge | | | ncy | | | Chief | | | Compla | | | int: | | | LOW | | | BLOOD | | | SUGAR, | | | SOB | | | Aug | | | 13, | | | 2019 | | | [facility] [facility] | | | [place] | | | [place] | | | Emerge | | | ncy | | | | | | Rheuma | | | toid | | | arthri | | | tis, | | | unspec | | | ified | | | | | | Local | | | infect | | | ion of | | | the | | | skin | | | and | | | subcut | | | aneous | | | | | | tissue | | | , unsp | | | | | | Chroni | | | c | | | obstru | | | ctive | | | pulmon | | | trisha | | | diseas | | | e, | | | unspec | | | ified | | | | | | Nicoti | | | ne | | | depend | | | ence, | | | unspec | | | ified, | | | | | | uncomp | | | licate | | | d | | | Allerg | | | y | | | status | | | to | | | oth | | | drug/m | | | eds/bi | | | ol | | | subst | | | status | | | | | | Anxiet | | | y | | | disord | | | er, | | | unspec | | | ified | | | 1 | | | Type 2 | | | | | | diabet | | | es | | | mellit | | | us | | | withou | | | t | | | compli | | | cation | | | s | | | Long | | | term | | | (curre | | | nt) | | | use of | | | | | | insuli | | | n | | | Other | | | long | | | term | | | (curre | | | nt) | | | drug | | | therap | | | y | | | Other | | | nonmed | | | icinal | | | | | | substa | | | nce | | | allerg | | | y | | | status | | | Marco | | | 17, | | | 2019 | | | [facility] [place] | [facility] | | | [place] | | | [place] | | | Emerge | | | ncy | | | | | | Headac | | | he | | | Migrai | | | ne, | | | unsp, | | | not | | | intrac | | | table, | | | | | | withou | | | t | | | status | | | | | | migrai | | | nosus | | | 1 | | | Type 2 | | | | | | diabet | | | es | | | mellit | | | us | | | withou | | | t | | | compli | | | cation | | | s | | | B[place]ola | | | r | | | disord | | | er, | | | unspec | | | ified | | | | | | Allerg | | | y | | | status | | | to | | | oth | | | drug/m | | | eds/bi | | | ol | | | subst | | | status | | | | | | Post-t | | | raumat | | | ic | | | stress | | | | | | disord | | | er, | | | unspec | | | ified | | | | | | Other | | | long | | | term | | | (curre | | | nt) | | | drug | | | therap | | | y | | | Other | | | nonmed | | | icinal | | | | | | substa | | | nce | | | allerg | | | y | | | status | | | | | | Essent | | | ial | | | (prima | | | ry) | | | hypert | | | ension | | | | | | Chroni | | | c | | | obstru | | | ctive | | | pulmon | | | trisha | | | diseas | | | e, | | | unspec | | | ified | | | Apr | | | 29, | | | 2019 | | | [facility] | | | [place] | | [facility] [place] | | [place] | | | [place] | | | Emerge | | | ncy | | | | | | Altere | | | d | | | Altere | | | d | | | Mental | | | | | | Status | | | | | | Acute | | | respir | | | atory | | | failur | | | e with | | | | | | hypoxi | | | a | | | Pneumo | | | erin, | | | unspec | | | ified | | | organi | | | sm | | | Acute | | | respir | | | atory | | | failur | | | e with | | | | | | hyperc | | | apnia | | | | | | Other | | | acute | | | kidney | | | | | | failur | | | e | | | [place] | | | lic | | | enceph | | | alopat | | | hy | | | Mar 1, | | | 2019 | | | [facility] [place] [facility] | | | [place] | | | [place] | | | Emerge | | | ncy | | | Chief | | | Compla | | | int: | | | VOMITI | | | NG | | | Feb | | | 26, | | | 2019 | | | [facility] [place] | [facility] | | | [place] | | [place] | | | Emerge | | | ncy | | | Chief | | | Compla | | | int: | | | ALT | | | MENTAL | | | | | | STATUS | | | | | | Recent | | | | | | Inpati | | | ent | | | Visit | | | Summar | | | yDate | | | Facili | | | ty | | | City | | | State | | | Type | | | Diagno | | | ses or | | | Chief | | | | | | Compla | | | int | | | Apr | | | 29, | | | 2019 | | | [facility] | | | [place] [facility] | [facility] [place] | | [place] | | | [place] | | | Critic | | | al | | | Care | | | | | | Pneumo | | | erin, | | | unspec | | | ified | | | organi | | | sm | | | Other | | | acute | | | kidney | | | | | | failur | | | e | | | Acute | | | respir | | | atory | | | failur | | | e with | | | | | | hyperc | | | apnia | | | | | | Acute | | | respir | | | atory | | | failur | | | e with | | | | | | hypoxi | | | a | | | [place] | | | lic | | | enceph | | | alopat | | | hy | | | Mar 1, | | | 2019 | | | [facility] [place] | [facility] | | | [place] | | | [place] | | | Observ | | | ation | | | | | | Chroni | | | c pain | | | | | | syndro | | | me | | | Anxiet | | | y | | | disord | | | er, | | | unspec | | | ified | | | | | | Nicoti | | | ne | | | depend | | | ence, | | | cigare | | | ttes, | | | uncomp | | | licate | | | d | | | Long | | | term | | | (curre | | | nt) | | | use of | | | | | | insuli | | | n | | | Bipola | | | r | | | disord | | | er, | | | unspec | | | ified | | | | | | Gastro | | | -esoph | | | ageal | | | reflux | | | | | | diseas | | | e | | | withou | | | t | | | esopha | | | gitis | | | | | | Hypoth | | | yroidi | | | sm, | | | unspec | | | ified | | | | | | Other | | | long | | | term | | | (curre | | | nt) | | | drug | | | therap | | | y 1 | | | Type | | | 2 | | | diabet | | | es w | | | unsp | | | diabet | | | ic | | | rtnop | | | w/o | | | macula | | | r | | | edema | | | | | | Essent | | | ial | | | (prima | | | ry) | | | hypert | | | ension | | | Feb | | | 26, | | | 2019 | | | [facility] [place] | | [facility] | | | [place] | | | [place] | | | Medica | | | l | | | Surgic | | | al | | | Sepsis | | | , | | | unspec | | | ified | | | organi | | | sm | | | Sepsis | | | , u | | | Long | | | term | | | (curre | | | nt) | | | use of | | | | | | non-st | | | eroida | | | l | | | non-in | | | flam | | | (NSAID | | | ) | | | Chroni | | | c | | | respir | | | atory | | | failur | | | e with | | | | | | hypoxi | | | a | | | Opioid | | | | | | depend | | | ence, | | | uncomp | | | licate | | | d | | | Allerg | | | y | | | status | | | to | | | other | | | antibi | | | otic | | | agents | | | | | | status | | | | | | Metabo | | | lic | | | enceph | | | alopat | | | hy | | | Chr | | | obstru | | | ctive | | | pulmon | | | | | | diseas | | | e with | | | | | | (acute | | | ) | | | lower | | | resp | | | infct | | | | | | Gastro | | | -esoph | | | ageal | | | reflux | | | | | | diseas | | | e | | | withou | | | t | | | esopha | | | gitis | | | | | | Chroni | | | c pain | | | | | | syndro | | | me | | | Nicoti | | | ne | | | depend | | | ence, | | | unspec | | | ified, | | | | | | uncomp | | | licate | | | d | | | Care | | | TeamPr | | | ovider | | | | | | Specia | | | lty | | | Phone | | | Fax | | | Servic | | | e | | | Dates | | | G, | | | JOHNSO | | | N | | | ADELE | | | , M.D. | | | | | | Family | | | | | | Medici | | | ne | | | ([phone]) | | | [phone] | | | 00 | | | (541) | | | [phone] | | | 27 Marco | | | 18, | | | 2019 - | | | | | | Curren | | | t | | | MARTÍNEZ | | | , | | | FRANNIE | | | K, | | | PA-C | | | Physic | | | hyacinth | | | Assist | | | ant | | | (541) | | | [phone] | | | 00 | | | (541) | | | [phone] | | | 27 Feb | | | 27, | | | 2019 - | | | | | | Curren | | | t | | | Shephe | | | rd, | | | Katerine | | | Case | | | Manage | | | r/Care | | | | | | Coordi | | | nator | | | (541) | | | [phone] | | | 35 | | | Oct 7, | | | 2019 | | | - | | | Curren | | | t | | | Shephe | | | rd, | | | Katerine | | | Primar | | | y Care | | | (541) | | | | | | [phone] | | | 35 | | | Oct 7, | | | 2019 | | | - | | | Curren | | | t | | | [facility] | | | tive | | | Portal | | | This | | | patien | | | t has | | | regist | | | ered | | | at the | | | | | | [facility] | | | | | | [facility] | | | al | | | Medica | | | l | | | Center | | | | | | Emerge | | | ncy | | | Depart | | | ment | | | For | | | more | | | inform | | | ation | | | visit: | | | | | | https: | | | //secu | | | [email or web address] | | | lectiv | | | emedic | | | [email or web address] | | | /notif | | | [id number] | | | [id number] | | | [email or web address] | | | [phone] | | | [id number] | | | [id number] | | | 93 | | | PLEASE | | | NOTE: | | | 1. | | | Any | | | care | | | recomm | | | endati | | | ons | | | and | | | other | | | clinic | | | al | | | inform | | | ation | | | are | | | provid | | | ed as | | | guidel | | | claudio | | | or for | | | | | | histor | | | ical | | | purpos | | | es | | | only, | | | and | | | provid | | | ers | | | should | | | | | | exerci | | | se | | | their | | | own | | | clinic | | | al | | | judgme | | | nt | | | when | | | provid | | | ing | | | care. | | | 2. | | | You | | | may | | | only | | | use | | | this | | | inform | | | ation | | | for | | | purpos | | | es of | | | treatm | | | ent, | | | paymen | | | t or | | | health | | | care | | | operat | | | ions | | | activi | | | ties, | | | and | | | subjec | | | t to | | | the | | | limita | | | tions | | | of | | | applic | | | able | | | [facility] | | | tive | | | Polici | | | es. | | | 3. | | | You | | | should | | | | | | consul | | | t | | | direct | | | ly | | | with | | | the | | | organi | | | zation | | | that | | | provid | | | ed a | | | care | | | guidel | | | ine or | | | other | | | | | | clinic | | | al | | | histor | | | y with | | | any | | | questi | | | ons | | | about | | | additi | | | onal | | | inform | | | ation | | | or | | | accura | | | cy or | | | comple | | | teness | | | of | | | inform | | | ation | | | provid | | | ed.? | | | 2018 | | | [facility] | | | tive | | | Medica | | | l | | | [employer] | | | logies | | | , Inc[employer] | | | - | | | [email or web address] | | | llecti | | | vemedi | | | [email or web address] | | | m | +---+--------+ + +--------+ + + + | ECHO-EXTERNAL SCAN | | 04/18/2019 | | Results for this | | | | 12:00 AM | | procedure are in the | | | | PST | | results section. | + +--------+ + + + | BOTOX INJECTION PAIN | Routin | 04/07/2019 | Intractable | Results for this | | CLINIC PROCEDURE | e | 3:45 PM | migraine with aura | procedure are in the | | | | PST | without status | results section. | | | | | migrainosus | | + +--------+ + + + from Last 3 Months Results CBC no Differential (04/20/2019 6:16 AM PST) + + + + + + | Component | Value | Ref Range | Performed | Pathologist | | | | | At | Signature | + + + + + + | WBC | 5.63 | 3.80 - 11.00 | [facility] | | | | | K/uL | LABORATORY | | + + + + + + | RBC | 3.44 (L) | 3.70 - 5.10 | [facility] | | | | | M/uL | LABORATORY | | + + + + + + | Hemoglobin | 11.3 | 11.3 - 15.5 | [facility] | | | | | g/dL | LABORATORY | | + + + + + + | Hematocrit | 33.3 (L) | 34.0 - 46.0 % | [facility] | | | | | | LABORATORY | | + + + + + + | MCV | 96.8 | 80.0 - 100.0 fl | [facility] | | | | | | LABORATORY | | + + + + + + | MCH | 32.9 | 27.0 - 34.0 pg | [facility] | | | | | | LABORATORY | | + + + + + + | MCHC | 34.0 | 32.0 - 35.5 | [facility] | | | | | g/dL | LABORATORY | | + + + + + + | RDW-SD | 59.1 (H) | 37 - 53 fl | [facility] | | | | | | LABORATORY | | + + + + + + | Platelet | 254 | 150 - 400 K/uL | [facility] | | | Count | | | LABORATORY | | + + + + + + | MPV | 8.8Comment: Testing | fl | [facility] | | | | performed at [facility];[address] | | LABORATORY | | | | [address];[place], [place] | | | | | | [address] | | | | + + + + + + + + | Specimen | + + | Blood | + + + + + + + | Performing | Address | City/State/Zipcode | Phone Number | | Organization | | | | + + + + + | [facility] | [address] | [place] [address] | [phone] | + + + + + Phosphorus (04/20/2019 6:16 AM PST) + + + + + + | Component | Value | Ref Range | Performed | Pathologist | | | | | At | Signature | + + + + + + | Phosphorus | 4.9 (H)Comment: Testing | 2.3 - 4.8 mg/dL | [facility] | | | | performed at [facility];[address] | | LABORATORY | | | | [address];[place], [place] | | | | | | [address] | | | | + + + + + + + + | Specimen | + + | Blood | + + + + + + + | Performing | Address | City/State/Zipcode | Phone Number | | Organization | | | | + + + + + | [facility] | [address] | [place] [address] | [phone] | + + + + + Magnesium (04/20/2019 6:16 AM PST) + + + + + + | Component | Value | Ref Range | Performed | Pathologist | | | | | At | Signature | + + + + + + | Magnesium | 1.8Comment: Testing | 1.7 - 2.4 mg/dL | [facility] | | | | performed at [facility];[address] | | LABORATORY | | | | [address];[place], [place] | | | | | | [address] | | | | + + + + + + + + | Specimen | + + | Blood | + + + + + + + | Performing | Address | City/State/Zipcode | Phone Number | | Organization | | | | + + + + + | [facility] | [address] | [place] [address] | [phone] | + + + + + Basic Metabolic Panel (04/20/2019 6:16 AM PST) + + + + + + | Component | Value | Ref Range | Performed | Pathologist | | | | | At | Signature | + + + + + + | Na | 136 | 135 - 145 | [facility] | | | | | mmol/L | LABORATORY | | + + + + + + | K | 4.4 | 3.5 - 4.9 | [facility] | | | | | mmol/L | LABORATORY | | + + + + + + | Cl | 103 | 99 - 109 mmol/L | [facility] | | | | | | LABORATORY | | + + + + + + | CO2 | 28 | 23 - 32 mmol/L | [facility] | | | | | | LABORATORY | | + + + + + + | Anion Gap | 9 | 5 - 20 mmol/L | [facility] | | | | | | LABORATORY | | + + + + + + | Glucose | 146 (H) | 65 - 99 mg/dL | [facility] | | | | | | LABORATORY | | + + + + + + | BUN | 20 | 8 - 25 mg/dL | [facility] | | | | | | LABORATORY | | + + + + + + | Creatinine | 1.19 (H) | 0.50 - 1.00 | [facility] | | | | | mg/dL | LABORATORY | | + + + + + + | BUN/Creatin | 17 | | [facility] | | | ine Ratio | | | LABORATORY | | + + + + + + | Calcium | 9.5 | 8.5 - 10.5 | [facility] | | | | | mg/dL | LABORATORY | | + + + + + + | Estimated | 49 (L)Comment: GFR <60: | >60 | [facility] | | | GFR | CHRONIC KIDNEY DISEASE, | mL/min/1.73m2 | LABORATORY | | | | IF FOUND OVER A 3 MONTH | | | | | | PERIOD.GFR <15: KIDNEY | | | | | | FAILURE.FOR | | | | | | AMERICANS, MULTIPLY THE | | | | | | CALCULATED GFR BY | | | | | | 1.210.This eGFR is | | | | | | calculated using the | | | | | | MDRD IDMS traceable | | | | | | equation.Testing | | | | | | performed at [facility];[address] | | | | | | [facility];[place], [place] | | | | | | [address] | | | | + + + + + + + + | Specimen | + + | Blood | + + + + + + + | Performing | Address | City/State/Zipcode | Phone Number | | Organization | | | | + + + + + | [facility] | [address] [facility] | [place] [address] | [phone] | + + + + + NM Nuclear Stress Test (Exercise) (04/19/2019 12:17 PM PST) + +--------+ + + + | Component | Value | Ref Range | Performed | Pathologist | | | | | At | Signature | + +--------+ + + + | BASELINE | 64 | bpm | [facility] | | | HEART RATE | | | | | + +--------+ + + + | BASELINE | 162/77 | mmHg | [facility] | | | BLOOD | | | | | | PRESSURE | | | | | + +--------+ + + + | PEAK HEART | 82 | | [facility] | | | RATE | | | | | + +--------+ + + + | PEAK BLOOD | 114/57 | mmHG | [facility] | | | PRESSURE | | | | | + +--------+ + + + | Target HR | 147 | | [facility] | | + +--------+ + + + | Percent HR | 47 | | [facility] | | + +--------+ + + + | Max | 173 | | [facility] | | | Predicted | | | | | | HR | | | | | + +--------+ + + + | LVEF-SPECT | 41 | % | [facility] | | | NUCLEAR | | | | | | STRESS/VIAB | | | | | | ILITY | | | | | + +--------+ + + + | NM stress | 123 | | [facility] | | | end | | | | | | diastolic | | | | | | volume | | | | | + +--------+ + + + | NM stress | 73 | | [facility] | | | end | | | | | | systolic | | | | | | volume | | | | | + +--------+ + + + | NM rest end | 116 | | [facility] | | | diastolic | | | | | | volume | | | | | + +--------+ + + + | NM rest end | 71 | | [facility] | | | systolic | | | | | | volume | | | | | + +--------+ + + + | TID VALUE | 0.98 | | [facility] | | + +--------+ + + + | ST | 0.0 | mm | [facility] | | | Elevation | | | | | | (mm) | | | | | + +--------+ + + + + + | Specimen | + + | | + + + + + | Narrative | Performed At | + + + | 1. Abnormal | [facility] | | pharmacological nuclear stress test. Intermediate risk.2. | | | Technically difficult study.3. No evidence of perfusion defects as | | | shown on the prone images.4. Mild systolic dysfunction with EF 41%. | | | | | | | | + + + + + | Procedure Note | + + | Tyree Ferraro MD - 04/19/2019 12:24 PM PST 1. Abnormal pharmacological nuclear | | stress test. Intermediate risk.2. Technically difficult study.3. No evidence of | | perfusion defects as shown on the prone images.4. Mild systolic dysfunction with EF 41%. | |4. Mild systolic dysfunction with EF 41%. | + + + +---------+ + + | Performing | Address | City/State/Zipcode | Phone Number | | Organization | | | | + +---------+ + + | [facility] | | | | + +---------+ + + ARRHYTHMIA MONITOR - EXTERNAL SCAN (04/19/2019 12:00 AM PST) + + + | Narrative | Performed At | + + + | Ordered by an | | | unspecified provider. | | + + + Troponin I (04/18/2019 11:07 PM PST)Only the most recent of 3 results within the time vicky betancur is included. + + + + + + | Component | Value | Ref Range | Performed | Pathologist | | | | | At | Signature | + + + + + + | Troponin I | <0.006Comment: 0.04 | 0.00 - 0.04 | [facility] | | | | ng/mL or less | ng/mL | LABORATORY | | | | Negative, repeat | | | | | | testing in four to six | | | | | | hour ifclinically | | | | | | indicted0.05 to 0.77 | | | | | | ng/mL | | | | | | Suspicious for | | | | | | myocardial injury. | | | | | | Serial measurementsmay | | | | | | be necessary to confirm | | | | | | or exclude the diagnosis | | | | | | of acute | | | | | | coronarysyndrome. Repeat | | | | | | testing in four to six | | | | | | hours if indicated.0.78 | | | | | | or greater ng/mL | | | | | | Consistent with | | | | | | myocardial injury. | | | | | | Clinical andlaboratory | | | | | | correlation recommended. | | | | | | Testing performed at | | | | | | [facility];[address] | | | | | | [facility];[place] [address] | | | | + + + + + + + + | Specimen | + + | Blood | + + + + + + + | Performing | Address | City/State/Zipcode | Phone Number | | Organization | | | | + + + + + | [facility] | [address] | [place] [address] | [phone] | + + + + + Urinalysis With Microscopic (04/18/2019 3:22 PM PST) + + + + + + | Component | Value | Ref Range | Performed | Pathologist | | | | | At | Signature | + + + + + + | Color, UA | YELLOW | | [facility] | | | | | | LABORATORY | | + + + + + + | Clarity, UA | CLEAR | | [facility] | | | | | | LABORATORY | | + + + + + + | Specific | 1.010 | 1.002 - 1.030 | [facility] | | | [place], | | | LABORATORY | | | Urine | | | | | + + + + + + | Leukocyte | NEGATIVE | NEG | [facility] | | | esterase, | | | LABORATORY | | | UA | | | | | + + + + + + | Nitrite, UA | NEGATIVE | NEG | [facility] | | | | | | LABORATORY | | + + + + + + | Urobilinoge | NORMAL | <1.6 mg/dL | [facility] | | | n, Ur | | | LABORATORY | | + + + + + + | Protein, | 30 (A) | NEG mg/dL | [facility] | | | Urine | | | LABORATORY | | | (mg/dL) | | | | | + + + + + + | pH, Urine | 8.0 | 5.0 - 8.0 | [facility] | | | | | | LABORATORY | | + + + + + + | Blood, UA | NEGATIVE | NEG | [facility] | | | | | | LABORATORY | | + + + + + + | Ketones, UA | NEGATIVE | NEG mg/dL | [facility] | | | | | | LABORATORY | | + + + + + + | Bilirubin, | NEGATIVE | NEG | [facility] | | | UA | | | LABORATORY | | + + + + + + | Glucose, Ur | NEGATIVE | NEG mg/dL | [facility] | | | | | | LABORATORY | | + + + + + + | WBC UA | 3-5 | 0 - 5 /hpf | [facility] | | | | | | LABORATORY | | + + + + + + | RBC UA | 0-2 | 0 - 5 /hpf | [facility] | | | | | | LABORATORY | | + + + + + + | SQUAMOUS | 26-49 | /lpf | [facility] | | | EPITHELIAL | | | LABORATORY | | | UA | | | | | + + + + + + | BACTERIA UA | 1+ (A)Comment: Testing | NONE | [facility] | | | | performed at [facility];[address] | | LABORATORY | | | | [address];[place], [place] | | | | | | [address] | | | | + + + + + + + + | Specimen | + + | Urine | + + + + + + + | Performing | Address | City/State/Zipcode | Phone Number | | Organization | | | | + + + + + | [facility] | [address] | [place] [address] | [phone] | + + + + + Drugs Of Abuse Screen, Urine (H) (04/18/2019 2:25 PM PST) + + + + + + | Component | Value | Ref Range | Performed | Pathologist | | | | | At | Signature | + + + + + + | Amp/Methamp | NEGATIVEComment: | NEG | [facility] | | | hetamine, | Positive cutoff for AMP | | LABORATORY | | | Screen, | = 1000 ng/mL | | | | | Urine | | | | | + + + + + + | Barbiturate | NEGATIVEComment: | NEG | [facility] | | | s Screen, | Positive cutoff for MOLLY | | LABORATORY | | | Urine | = 200 ng/mL | | | | + + + + + + | Benzodiazep | NEGATIVEComment: | NEG | [facility] | | | claudio | Positive cutoff for | | LABORATORY | | | Screen, | BENZO = 200 ng/mL | | | | | Urine | | | | | + + + + + + | Cocaine | NEGATIVEComment: | NEG | [facility] | | | Metabolites | Positive cutoff for ELOINA | | LABORATORY | | | , Ur | = 300 ng/mL | | | | + + + + + + | Methadone | NEGATIVEComment: | NEG | [facility] | | | Screen, | Positive cutoff for MTD | | LABORATORY | | | Urine | = 300 ng/mL | | | | + + + + + + | Opiates | POSITIVE (A)Comment: | NEG | [facility] | | | Screen, | Positive cutoff for OPI | | LABORATORY | | | Urine | = 300 ng/mL | | | | + + + + + + | Phencyclidi | NEGATIVEComment: | NEG | [facility] | | | ne Screen, | Positive cutoff for PCP | | LABORATORY | | | Urine | = 25 ng/mL | | | | + + + + + + | Tetrahydroc | NEGATIVEComment: | NEG | [facility] | | | annabinol(T | Positive cutoff for | | LABORATORY | | | HC) | THC = 50 ng/mLThe above | | | | | | are unconfirmed | | | | | | screening results. | | | | | | These results are to | | | | | | be used onlyfor medical | | | | | | (i.e.,treatment) | | | | | | purposes. Unconfirmed | | | | | | screening results must | | | | | | notbe used for | | | | | | non-medical purposes | | | | | | (e.g., employment | | | | | | testing, legal | | | | | | testing).Testing | | | | | | performed at [facility] | | | | | | [facility];[place], [place] | | | | | | [address] | | | | + + + + + + + + | Specimen | + + | Urine - Urine | | specimen (specimen) | + + + + + + + | Performing | Address | City/State/Zipcode | Phone Number | | Organization | | | | + + + + + | [facility] | [address] | [place] [address] | [phone] | + + + + + ECG 12 lead (04/18/2019 12:07 PM PST) + + + + + + | Component | Value | Ref Range | Performed | Pathologist | | | | | At | Signature | + + + + + + | VENTRICULAR | 77 | BPM | [facility] | | | RATE EKG | | | | | + + + + + + | ATRIAL RATE | 77 | BPM | [facility] | | + + + + + + | P-R | 184 | ms | [facility] | | | INTERVAL | | | | | + + + + + + | QRS | 96 | ms | [facility] | | | DURATION | | | | | + + + + + + | Q-T | 398 | ms | [facility] | | | INTERVAL | | | | | + + + + + + | Q-T | 450 | ms | [facility] | | | INTERVAL | | | | | | (CORRECTED) | | | | | + + + + + + | P WAVE AXIS | 49 | degrees | [facility] | | + + + + + + | QRS AXIS | -39 | degrees | [facility] | | + + + + + + | T AXIS | 28 | degrees | [facility] | | + + + + + + | INTERPRETAT | Normal sinus rhythmLeft | | [facility] | | | ION TEXT | axis deviationAbnormal | | | | | | ECGWhen compared with | | | | | | ECG of 03-JAN-2019 | | | | | | 13:16,Previous ECG has | | | | | | undetermined rhythm, | | | | | | needs reviewThis ECG | | | | | | contains Unconfirmed | | | | | | Interpretation | | | | | | Statements. See ED | | | | | | Record for Physician | | | | | | Interpretation. | | | | | | Confirmed by [facility] READ | | | | | | ONLY, -COMPUTER ([id number]), | | | | | | scientific publications editor Beth Quinn | | | | | | (18) on 04/18/2019 | | | | | | 1:28:53 PM | | | | + + + + + + + + | Specimen | + + | | + + + + + | Narrative | Performed At | + + + | | | + + + + +---------+ + + | Performing | Address | City/State/Zipcode | Phone Number | | Organization | | | | + +---------+ + + | [facility] | | | | + +---------+ + + Lipid Panel (04/18/2019 11:54 AM PST) + + + + + + | Component | Value | Ref Range | Performed | Pathologist | | | | | At | Signature | + + + + + + | Cholesterol | 175 | <200 mg/dL | [facility] | | | | | | LABORATORY | | + + + + + + | Triglycerid | 79 | <150 mg/dL | [facility] | | | es | | | LABORATORY | | + + + + + + | HDL | 53 | >40 mg/dL | [facility] | | | | | | LABORATORY | | + + + + + + | LDL, | 106 (H)Comment: Testing | <100 mg/dL | [facility] | | | Calculated | performed at [facility], [address] | | LABORATORY | | | | [address], | | | | | | [place] [address] | | | | + + + + + + + + | Specimen | + + | Blood | + + + + + + + | Performing | Address | City/State/Zipcode | Phone Number | | Organization | | | | + + + + + | [facility] | [address] | [place] [address] | [phone] | + + + + + Protime INR (04/18/2019 11:54 AM PST) + + + + + + | Component | Value | Ref Range | Performed | Pathologist | | | | | At | Signature | + + + + + + | INR | 1.0Comment: REFERENCE | | [facility] | | | | RANGE:0.9 - 1.2 | | LABORATORY | | | | NON-ANTICOAGULATED2.0 | | | | | | - 3.0 ALL OTHER | | | | | | THERAPEUTIC | | | | | | INDICATIONS2.5 - 3.5 | | | | | | MECHANICAL HEART VALVES, | | | | | | RECURRENT OR SYSTEMIC | | | | | | EMBOLISMTesting | | | | | | performed at [facility];[address] | | | | | | [address];[place], [place] | | | | | | [address] | | | | + + + + + + + + | Specimen | + + | Blood | + + + + + + + | Performing | Address | City/State/Zipcode | Phone Number | | Organization | | | | + + + + + | [facility] | [address] | [place] [address] | [phone] | + + + + + CBC with Differential (04/18/2019 11:54 AM PST) + + + + + + | Component | Value | Ref Range | Performed | Pathologist | | | | | At | Signature | + + + + + + | WBC | 6.24 | 3.80 - 11.00 | [facility] | | | | | K/uL | LABORATORY | | + + + + + + | RBC | 3.39 (L) | 3.70 - 5.10 | [facility] | | | | | M/uL | LABORATORY | | + + + + + + | Hemoglobin | 11.2 (L) | 11.3 - 15.5 | [facility] | | | | | g/dL | LABORATORY | | + + + + + + | Hematocrit | 32.9 (L) | 34.0 - 46.0 % | [facility] | | | | | | LABORATORY | | + + + + + + | MCV | 96.9 | 80.0 - 100.0 fl | [facility] | | | | | | LABORATORY | | + + + + + + | MCH | 33.0 | 27.0 - 34.0 pg | [facility] | | | | | | LABORATORY | | + + + + + + | MCHC | 34.1 | 32.0 - 35.5 | [facility] | | | | | g/dL | LABORATORY | | + + + + + + | RDW-SD | 56.4 (H) | 37 - 53 fl | [facility] | | | | | | LABORATORY | | + + + + + + | Platelet | 261 | 150 - 400 K/uL | [facility] | | | Count | | | LABORATORY | | + + + + + + | MPV | 9.3 | fl | [facility] | | | | | | LABORATORY | | + + + + + + | Diff Type | AUTOMATED | | [facility] | | | | | | LABORATORY | | + + + + + + | % | 87.89 | % | [facility] | | | Neutrophils | | | LABORATORY | | + + + + + + | % | 7.74 | % | [facility] | | | Lymphocytes | | | LABORATORY | | + + + + + + | Monocyte % | 3.33 | % | [facility] | | | | | | LABORATORY | | + + + + + + | Eosinophils | 0.26 | % | [facility] | | | % | | | LABORATORY | | + + + + + + | Basophils % | 0.78 | % | [facility] | | | | | | LABORATORY | | + + + + + + | Neutrophils | 5.49 | 1.90 - 7.40 | [facility] | | | , Absolute | | K/uL | LABORATORY | | + + + + + + | Absolute | 0.48 (L) | 1.00 - 3.90 | [facility] | | | Lymphocytes | | K/uL | LABORATORY | | + + + + + + | Absolute | 0.21 | 0.00 - 0.80 | [facility] | | | Monocytes | | K/uL | LABORATORY | | + + + + + + | Eosinophils | 0.02 | 0.00 - 0.50 | [facility] | | | , Absolute | | K/uL | LABORATORY | | + + + + + + | Basophils, | 0.05 | 0.00 - 0.10 | [facility] | | | Absolute | | K/uL | LABORATORY | | + + + + + + | RBC | RBC AND PLT MORPHOLOGY | | [facility] | | | Morphology | APPEAR NORMALComment: | | LABORATORY | | | | Testing performed at | | | | | | [facility];[address] | | | | | | [address]vd;[place] [address] | | | | + + + + + + + + | Specimen | + + | Blood | + + + + + + + | Performing | Address | City/State/Zipcode | Phone Number | | Organization | | | | + + + + + | [facility] | [address] | [place] [address] | [phone] | + + + + + Hemoglobin A1C (04/18/2019 11:54 AM PST) + + + + + + | Component | Value | Ref Range | Performed | Pathologist | | | | | At | Signature | + + + + + + | Hemoglobin | 5.9Comment: HbA1c method | 4.0 - 6.0 % | [facility] | | | A1c | is certified by [facility] | | LABORATORY | | | | and traceable to the | | | | | | DCCT reference | | | | | | method.ADA guidelines | | | | | | indicate: | | | | | | Prediabetes: 5.7 - 6.4 | | | | | | Diabetes: >6.4 | | | | | | Glycemic control for | | | | | | adults with diabetes: | | | | | | <7.0Effective 05/04/2018: | | | | | | Note New Method | | | | + + + + + + | Estimated | 123Comment: Estimated | <154 mg/dL | [facility] | | | Average | Average Glucose | | LABORATORY | | | Glucose | calculated from | | | | | | hemoglobin A1c by use of | | | | | | the ADArecommended | | | | | | formula.Testing | | | | | | performed at [facility], [address] | | | | | | [address], | | | | | | [place] [address] | | | | + + + + + + + + | Specimen | + + | Blood | + + + + + + + | Performing | Address | City/State/Zipcode | Phone Number | | Organization | | | | + + + + + | [facility] | [address] | [place] [address] | [phone] | + + + + + Comprehensive Metabolic Panel (04/18/2019 11:54 AM PST) + + + + + + | Component | Value | Ref Range | Performed | Pathologist | | | | | At | Signature | + + + + + + | Na | 136 | 135 - 145 | [facility] | | | | | mmol/L | LABORATORY | | + + + + + + | K | 3.8 | 3.5 - 4.9 | [facility] | | | | | mmol/L | LABORATORY | | + + + + + + | Cl | 108 | 99 - 109 mmol/L | [facility] | | | | | | LABORATORY | | + + + + + + | CO2 | 26 | 23 - 32 mmol/L | [facility] | | | | | | LABORATORY | | + + + + + + | Anion Gap | 6 | 5 - 20 mmol/L | [facility] | | | | | | LABORATORY | | + + + + + + | Glucose | 165 (H) | 65 - 99 mg/dL | [facility] | | | | | | LABORATORY | | + + + + + + | BUN | 19 | 8 - 25 mg/dL | [facility] | | | | | | LABORATORY | | + + + + + + | Creatinine | 1.14 (H) | 0.50 - 1.00 | [facility] | | | | | mg/dL | LABORATORY | | + + + + + + | BUN/Creatin | 17 | | [facility] | | | ine Ratio | | | LABORATORY | | + + + + + + | Calcium | 8.6 | 8.5 - 10.5 | [facility] | | | | | mg/dL | LABORATORY | | + + + + + + | Protein, | 6.0 (L) | 6.3 - 8.2 g/dL | [facility] | | | Total | | | LABORATORY | | + + + + + + | Albumin | 3.9 | 3.6 - 5.0 g/dL | [facility] | | | | | | LABORATORY | | + + + + + + | Globulin | 2.1 | 1.3 - 4.9 g/dL | [facility] | | | | | | LABORATORY | | + + + + + + | A/G Ratio | 1.9 | 1.0 - 2.4 | [facility] | | | | | | LABORATORY | | + + + + + + | BILIRUBIN, | 0.2 | 0.1 - 1.5 mg/dL | [facility] | | | TOTAL | | | LABORATORY | | + + + + + + | ALK PHOS | 85 | 35 - 115 U/L | [facility] | | | | | | LABORATORY | | + + + + + + | AST | 19 | 10 - 45 U/L | [facility] | | | | | | LABORATORY | | + + + + + + | ALT | 11 | 10 - 65 U/L | [facility] | | | | | | LABORATORY | | + + + + + + | Estimated | 51 (L)Comment: GFR <60: | >60 | [facility] | | | GFR | CHRONIC KIDNEY DISEASE, | mL/min/1.73m2 | LABORATORY | | | | IF FOUND OVER A 3 MONTH | | | | | | PERIOD.GFR <15: KIDNEY | | | | | | FAILURE.FOR | | | | | | AMERICANS, MULTIPLY THE | | | | | | CALCULATED GFR BY | | | | | | 1.210.This eGFR is | | | | | | calculated using the | | | | | | MDRD IDDC traceable | | | | | | equation.Testing | | | | | | performed at [facility];[address] | | | | | | [facility];[place], [place] | | | | | | [address] | | | | + + + + + + + + | Specimen | + + | Blood | + + + + + + + | Performing | Address | City/State/Zipcode | Phone Number | | Organization | | | | + + + + + | [facility] | [address] | [place] [address] | [phone] | + + + + + ECHO-EXTERNAL SCAN (04/18/2019 12:00 AM PST) + + + | Narrative | Performed At | + + + | Ordered by an | | | unspecified provider. | | + + + BOTOX INJECTION PAIN CLINIC PROCEDURE (04/07/2019 3:45 PM PST) + + + | Narrative | Performed At | + + + | Jimbo Samayoa MD 04/07/2019 4:12 PM Carline Escobar | | | 04/07/2019 PROCEDURE: BOTOX INDICATION: Intractable migraine with | | | aura, non-status migrainous Carline stokes. 48 y.o.year-old | | | femalewho [...] | | Sincerely, Jimbo Samayoa M.D. Neurologist [phone] | | | Electronically signed | | + + + from Last 3 Months Insurance + +--------+ +--------+ +---------+--------+ | Payer | Benefi | Subscriber | Effect | Phone | Address | Type | | | t Plan | ID | corrina | | | | | | / | | Dates | | | | | | Group | | | | | | + +--------+ +--------+ +---------+--------+ | [employer] | [employer] | [id number] | 10/18/19 | [phone] | | Medica | | MEDICAID HMO | HEALTH | | 14-Pre | 1 | | id | | | MDCD | | sent | | | | | | [place] | | | | | | + +--------+ +--------+ +---------+--------+ | [employer] | [employer] | [id number] | | [phone] | | Medica | | MEDICAID HMO | HEALTH | | 018-Pr | 1 | | id | | | MDCD | | esent | | | | | | [place]MO [place] | | | | | | + +--------+ +--------+ +---------+--------+ | [employer] | MOD[employer] | [id number] | | [phone] | | Medica | | MEDICAID HMO | HEALTH | | 019-Pr | 1 | | id | | | MDCD | | esent | | | | | | [place]MO [place] | | | | | | + +--------+ +--------+ +---------+--------+ + +--------+ +--------+ + + | Guarantor Name | Accoun | Relation to | Date | Phone | Billing Address | | | t Type | Patient | of | | | | | | | | | | + +--------+ +--------+ + + | CARLINE ESCOBAR | Person | Other | [birth year] | [address] | | | al/Fam | | 1970 | [phone] | [place], [place] | | | kristy | | | 5 (Home) | [address] | + +--------+ +--------+ + + | Carline Escobar | Person | Self | [birth year] | [address] | | | al/Fam | | 1970 | [phone] | [place], [place] | | | kristy | | | 5 (Home) | [address] | + +--------+ +--------+ + + | Carline Escobar | Person | Self | [birth year] | | [address] | | | al/Fam | | 1970 | [phone] | [place], [place] | | | kristy | | | 5 (Home) | [address] | + +--------+ +--------+ + + Advance Directives + + + + + | Type | Date Recorded | Patient | Explanation | | | | 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
--- OUTSIDE RECORDS SUMMARY | ~2019-05-03 | XMS | Encounter Summary ---
Demographics + + + | Address | [address] | | | [place] [address] | + + + | Home Phone | | + + + | Preferred Language | Unknown | + + + | Marital Status | Single | + + + | Mormonism Affiliation | CHR | + + + [...] | | | | | [place] [address] | | + + + + + Care Team Providers + +------+ + | Care Enterprise Systems Manager Name | Role | Phone | + +------+ + PCP | Unavailable | + +------+ + Encounter Details +--------+ + + + + | Date | Type | Department | Care Team | Description | +--------+ + + + + | 11/02/ | Respiratory | | Other, Faculty | | | 2006 | Therapy | | [phone] | | +--------+ + + + + [...] + | MEDICAL GAS/HUMIDITY | Routin | 11/02/2005 | | Results for this | | | e | 4:05 PM | | procedure are in the | | | | PDT | | results section. | + +--------+ + + + documented in this encounter Results MEDICAL GAS/HUMIDITY (11/02/2005 4:05 PM PDT) + + + + + + | Component | Value | Ref Range | Performed | Pathologist | | | | | At | Signature | + + + + + + | [facility] | NASAL CANNULA AT 2 | | | | | GAS/HUMIDIT | | | | | | Y | Zenobia Miles RCP | | | | + + + [...] [facility] | [address] | [place], [place] | | | DIAGNOSTICS - | [place] | [address] | | | PULMONARY FUNCTION | | | | + + + + + documented in this encounter Visit Diagnoses Not on filedocumented in this encounter"
--- OUTSIDE RECORDS SUMMARY | ~2019-05-03 | XMS | Encounter Summary ---
Demographics + + + | Address | [address] | | | [place] [address] | + + + | Home Phone | | + + + | Preferred Language | Unknown | + + + | Marital Status | Single | + + + | Christian Affiliation | Unknown | + + + | Race | Unknown | + + + | Ethnic Group | Unknown | + + + Author + + + | Author | [facility] | | | and [place] | + + + | Organization | [facility] | | | and [...] | | | | | [place] [address] | | + + + + + | Robson Min | ECON | Unknown | | + + + + + | Isabella Whitehead | ECON | Unknown | | + + + + + Care Team Providers + +------+ + | Care Snack Bar Cook Name | Role | Phone | + +------+ + | Bart Ba DO | PCP | | + +------+ + Encounter Details +--------+ + + + + | Date | Type | Department | Care Team | Description | +--------+ + + + + | 04/04/ | Hospital | [facility] | Navdeep Grande, | Abnormal chest CT | | 2011 - | Encounter | MED CTR XRAY [address] | MD [address] | | | | | [place] | [place], [place] | | | 04/06/ | | [place] [address] | [address] | | | 2011 | | [phone] | | | +--------+ + + + + Social History + + + +--------+------+ | Tobacco Use | Types | Packs/Day | Years | Date | | | | | Used | | + + + +--------+------+ | Current Every Day | Cigarettes | 1 | 20 | | | Smoker | [...] + + documented as of this encounter Medications at Time of Discharge + + + +---------+ + + | Medication | Sig | Dispensed | Refills | Start | End Date | | | | | | Date | | + + + +---------+ + + | albuterol | Inhale 2 puffs into | | 0 | | | | (VENTOLIN HFA) 90 | the lungs every 4 | | | | 7 | | mcg/puff inhaler | hours as needed. | | | | | + + + +---------+ + + | azaTHIOprine | Take 75 mg by mouth | | 0 | 09/22/19 | | | (AZASAN) 75 MG TABS | 2 times daily. | | | 12 | 8 | + + + +---------+ + + | | One tablet by mouth | | 0 | 10/08/19 | | | mwukltzoja-whflgaq-n | every 6 hours as | | | 12 | 8 | | affeine (BUTALBITAL | needed for migraine | | | | | | COMPOUND/ASA) per | | | | | | | tablet | | | | | | + + + +---------+ + + | ergocalciferol | Take 50,000 Units by | | 0 | 09/10/19 | | | (VITAMIN D-2) 50,000 | mouth Daily. | | | 12 | 7 | | units capsule | | | | | | + + + +---------+ + + | gabapentin | Take 600 mg by mouth | | 0 | 09/10/19 | | | (NEURONTIN) 600 MG | 3 times daily. | | | 12 | 6 | | tablet | | | | | | + + + +---------+ + + | | Take 1 tablet by | | 0 | 09/10/19 | | | HYDROcodone-acetamin | mouth every 4 hours | | | 12 | 8 | | ophen (NORCO) | as needed. | | | | | | 7.5-325 mg per | | | | | | | tablet | | | | | | + + + +---------+ + + | | Take 7.5-325 mg by | | 0 | 09/10/19 | | | HYDROcodone-acetamin | mouth every 4 hours. | | | 12 | 5 | | ophen (NORCO) | | | | | | | 7.5-325 mg per | | | | | | | tablet | | | | | | + + + +---------+ + + | hyoscyamine | Place 0.125 mg under | | 0 | 09/10/19 | | | (LEVSIN) 0.125 MG | the tongue 4 times | | | 12 | 5 | | tablet | daily as needed. | | | | | + + + +---------+ + + | Insulin Aspart | SOLN | | 0 | 09/22/19 | | | (NOVOLOG FLEXPEN SC) | | | | 12 | 4 | + + + +---------+ + + | Insulin Glargine | SOLN - 50 units as | | 0 | 09/22/19 | | | (LANTUS SC) | needed | | | 12 | 4 | + + + +---------+ + + | levothyroxine | Take 300 mcg by | | 0 | | | | (SYNTHROID, | mouth every morning | | | | 9 | | LEVOTHROID) 300 MCG | (before breakfast). | | | | | | tablet | | | | | | + + + +---------+ + + | LORazepam (ATIVAN) | One to two tablets | | 0 | 09/10/19 | | | 0.5 mg tablet | by mouth at bedtime | | | 12 | 7 | + + + +---------+ + + | metFORMIN | Take two tablets by | | 0 | 09/10/19 | | | (GLUCOPHAGE) 500 mg | mouth every a.m. and | | | 12 | 7 | | tablet | three tablets every | | | | | | | p.m. | | | | | + + + +---------+ + + | metoprolol | Take 25 mg by mouth | | 0 | 09/10/19 | | | tartrate (LOPRESSOR) | Daily. | | | 12 | 7 | | 25 mg tablet | | | | | | + + + +---------+ + + | omeprazole | Take 40 mg by mouth | | 0 | 09/10/19 | | | (PRILOSEC) 40 MG | Daily. | | | 12 | 4 | | capsule | | | | | | + + + +---------+ + + | ranitidine | Take 150 mg by mouth | | 0 | 09/10/19 | | | (ZANTAC) 150 mg | Daily. | | | 12 | 5 | | tablet | | | | | | + + + +---------+ + + | simvastatin | Take 20 mg by mouth | | 0 | 09/10/19 | | | (ZOCOR) 20 mg tablet | Daily. | | | 12 | 7 | + + + +---------+ + + | SUMAtriptan | 1/2-1 tablet by | | 0 | 09/10/19 | | | (IMITREX) 100 mg | mouth daily as | | | 12 | 8 | | tablet | needed migraine | | | | | + + + +---------+ + + | venlafaxine | Take 75 mg by mouth | | 0 | 09/10/19 | | | (EFFEXOR) 75 MG | 2 times daily. | | | 12 | 7 | | tablet | | | | | | + + + +---------+ + + | ziprasidone | Take 60 mg by mouth | | 0 | 09/22/19 | | | (GEODON) 60 MG | nightly. | | | 12 | 9 | | capsule | | | | | | + + + +---------+ + + | zolpidem (AMBIEN) | Take 10 mg by mouth | | 0 | 01/26/20 | | | 5 mg tablet | nightly. | | | 12 | 4 | + + + +---------+ + + documented as of this encounter [...] [place] | | | | | | [address] | | | | | | | | +--------+---------+ + + + | 07/26/ | Office | Pulmonology | Navdeep Grande, | | | 2019 | Visit | | [address] | | | | | | [place] | | | | | | [address] | | | | | | | | +--------+---------+ + + + documented as of this encounter Procedures + +--------+ + + + | Procedure Name | Priori | Date/Time | Associated Diagnosis | Comments | | | ty | | | | + +--------+ + + + | XR CHEST PA AND | Routin | 04/04/2012 | Abnormal chest CT | Results for this | | LATERAL | e | 12:25 PM | | procedure are in the | | | | PST | | results section. | + +--------+ + + + documented in this encounter Results XR Chest PA and Lateral (04/04/2012 12:25 PM PST) + + | Specimen | + + | | + + + + + | Narrative | Performed At | + + + | [facility] | [place] | | Department [address] [facility] | | [ rep ct [address]] [ rep [facility] | | [facility]] Signed | - IMAGING | | | | | Patient Name: CARLINE MIN Physician: | | | RODRI : 1970 Age: 41 Sex: F Unit #: [id number] | | | Exam Date: 04/04/12 Location: [facility] | | | Report #: [id number] Page: | | | %(RAD)RES..mtdd.print.filter("pg") of %(RAD) | | | RES..mtdd.print.filter("tpg") | | | | | | Accession Number: [id number] | | | CHEST X-RAY, 04/04/2012 CLINICAL HISTORY: FOLLOWUP OF | | | ABNORMAL CHEST CT. COMPARISON: CT scan of the chest dated | | | 12/14/2011, numerous previous chest x-rays, most recently 11/03/ | | | 2005. FINDINGS: PA and lateral views of the chest were | | | obtained. Moderate interstitial thickening is visualized | | | involving the right lower lobe consistent with the findings of | | | fibrosis and cavitary change seen on the previous chest CT. The | | | cavities are not well appreciated on the current chest x-ray. A | | | small amount of interstitial thickening is present in the right | | | perihilar region that has remained stable. The left lung is clear. The | | | cardiomediastinal silhouette is normal. There are no acute osseous | | | abnormalities. IMPRESSION: 1. MODERATE INTERSTITIAL | | | THICKENING INVOLVING THE RIGHT LOWER LOBE CONSISTENT WITH PREVIOUSLY | | | NOTED FIBROSIS AND CAVITARY CHANGE SEEN ON THE CHEST CT. A LESSER | | | AMOUNT OF INTERSTITIAL THICKENING IS PRESENT IN THE RIGHT PERIHILAR | | | REGION, STABLE. Dictated Date/Time: 04/04/2012 12:25 | | | Transcribed Date/Time: 04/04/2012 15:34 Product Safety Professional: | | | <<Signature on File>> | | | Magdy | | | MD Shaun04/05/12 0055 <Electronically signed by Magdy Dunn MD> | | | Magdy Dunn MD 04/04/12 1225 Product Safety Professional: [employer] | | | Rwyjmflmploav04/17/12 1534 Navdeep Grande MD | | | | | + + + + + + + + | Performing | Address | City/State/Zipcode | Phone Number | | Organization | | | | + + + + + | [facility] | [address] | [place] | [phone] | | [facility] | | [address] | | | - IMAGING | | | | + + + + + documented in this encounter Visit Diagnoses + + | Diagnosis | + + | Abnormal chest CT Nonspecific (abnormal) findings on radiological and other | | examination of other intrathoracic organs | + + documented in this encounter
--- OUTSIDE RECORDS SUMMARY | ~2019-05-03 | XMS | Encounter Summary ---
Demographics + + + | Address | [address] | | | [place] [address] | + + + | Home Phone | | + + + | Preferred Language | Unknown | + + + | Marital Status | Single | + + + | Samaritan Affiliation | Unknown | + + + | Race | Unknown | + + + | Ethnic Group | Unknown | + + + Author + + + | Author | [facility] | | | and [place] | + + + | Organization | [facility] | | | and [place] | + + + | Address | Unknown | + + + | Phone | Unavailable | + + + Support + + + + + | Name | Relationship | Address | Phone | + + + + + | Isabella Mni | ECON | [address] | | | | | [place] [address] | | + + + + + | Robson Min | ECON | Unknown | | + + + + + | Isabella Whitehead | ECON | Unknown | | + + + + + Care Team Providers + +------+ + | Care Mri Assistant Name | Role | Phone | + +------+ + | Juanito Avery | DOMONIQUE | | + +------+ + Reason for Visit + + + | Reason | Comments | + + + | Treatment Order | | + + + Encounter Details +--------+ + + + + | Date | Type | Department | Care Team | Description | +--------+ + + + + | 02/13/ | Telephone [facility] | Jimbo Samayoa MD | Treatment Order | | 2019 | | HOSPITAL NEUROLOGY | [address] | | | | | CLINIC [address] | [place] | | | | | [address] [place], | [id number] | | | | | [place] [address] | | | | | | [phone] | | | +--------+ + + + [...] DR | | | | | | [place] | | | | | | [address] | | | | | | | | +--------+---------+ + + + | 07/26/ | Office | Pulmonology | Navdeep Grande, | | | 2019 | Visit | | MD [address] | | | | | | [place] | | | | | | [address] | | | | | | | | +--------+---------+ + + + documented as of this encounter Visit Diagnoses Not on filedocumented in this encounter"
--- OUTSIDE RECORDS SUMMARY | ~2019-05-03 | XMS | Encounter Summary ---
Demographics + + + | Address | [address] | | | [place] [address] | + + + | Home Phone | | + + + | Preferred Language | Unknown | + + + | Marital Status | Single | + + + | Scientologist Affiliation | Unknown | + + + | Race | Unknown | + + + | Ethnic Group | Unknown | + + + Author + + + | Author | [facility] | | | and [place] | + + + | Organization | [facility] | | | and [...] | | | | | [place] [address] | | + + + + + | Robson Min | ECON | Unknown | | + + + + + | Isabella Whitehead | ECON | Unknown | | + + + + + Care Team Providers + +------+ + | Care Manager Radiation Name | Role | Phone | + +------+ + | Ora Slater | PCP | | + +------+ + Reason for Visit +--------+ + | Reason | Comments | +--------+ + | Other | 2 week event monitor | +--------+ + Diagnostic/Screening (Routine) +--------+--------+ + + + + | Status | Reason | Specialty | Diagnoses / | Referred By | Referred To | | | | | Procedures | Contact | Contact | +--------+--------+ + + + + | Closed | | Cardiology | Diagnoses | Batista, | Dustin | | | | | 2 week | DO Laine | Cardiology | | | | | Procedures | [address] | | | | | CR EVENT | [address] | [address] | | | | | MONITOR | [address] | | | | | | | [facility] [place] | [place], [place] | | | | | | [address] | [address] | | | | | | Phone: | Phone: | | | | | | [phone] | [phone] | | | | | | Fax: | Fax: | | | | | | [phone] | [phone] | +--------+--------+ + + + + Encounter Details +--------+ + + + + | Date | Type | Department | Care Team | Description | +--------+ + + + + | 01/19/ | Procedure | [facility] | Laine Batista DO | Dizziness; | | 2018 | visit | CARDIOLOGY EUGENIA | [address] | Heart palpitations | | | | [address] | [place], [place] | | | | | WAY [place] [address] | [address] | | | | | [place] | | | | | | [address] | | | | | | [phone] | | | +--------+ + + + [...] + + documented as of this encounter Progress Notes Beth Tamayo, Evening Anchor - 01/19/2019 3:30 PM PDT2 week cardiac event monitor placed on patient. EOB/Billing information discussed. Instructions given and understood. P atient instructed to call [facility] for any billing or monitor questions. 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 [facility] umented in this encounter Plan of Treatment +--------+---------+ + + + | Date | Type | Specialty | Care Team | Description | +--------+---------+ + + + | 06/19/ | Office | Neurology | Jimbo Samayoa MD | | | 2020 | Visit | | [address] | | | | | | [place], [place] | | | | | | [address] | | | | | | | | +--------+---------+ + + + | 07/26/ | Office | Pulmonology | Navdeep Grande, | | | 2019 | Visit | | MD [address] | | | | | | [place] | | | | | | [address] | | | | | | | | +--------+---------+ + + + documented as of this encounter Visit Diagnoses + + | Diagnosis | + + | Dizziness Dizziness and giddiness | + + | Heart palpitations Palpitations | + + documented in this encounter"
--- OUTSIDE RECORDS SUMMARY | ~2019-05-03 | XMS | Encounter Summary ---
Demographics + + + | Address | [address] | | | [place] [address] | + + + | Home Phone | | + + + | Preferred Language | Unknown | + + + | Marital Status | Single | + + + | Amish Affiliation | Unknown | + + + | Race | Unknown | + + + | Ethnic Group | Unknown | + + + Author + + + | Author | [facility] | | | and [place] | + + + | Organization | [facility] | | | [...] | | | | | [place] [address] | | + + + + + | Robson Min | ECON | Unknown | | + + + + + | Isabella Whitehead | ECON | Unknown | | + + + + + Care Team Providers + +------+ + | Care Straightener Name | Role | Phone | + +------+ + | Ora Slater | PCP | | + +------+ + Reason for Referral Evaluate & Treat (Urgent) +--------+ + + + + + | Status | Reason | Specialty | Diagnoses / | Referred By | Referred To | | | | | Procedures | Contact | Contact | +--------+ + + + + + | Closed | Specialty | Sleep | Diagnoses | Harjinder | [facility] | | | Services | Medicine | Alveolar | MD Navdeep | [facility] | | | Required | | hypoventilat | [address] | | | | | ion JESUSITA and | [address] | [address] | | | | | COPD | [place], | [place], | | | | | overlap | [place] [address] | [place] [address] | | | | | syndrome | Phone: | Phone: | | | | | ([facility]) | [phone] | [phone] | | | | | | Fax: | Fax: | | | | | | [phone] | [phone] | +--------+ + + + + + Reason for Visit +--------+ + | Reason | Comments | +--------+ + | COPD | 60 day follow up w/remote download | +--------+ + Evaluate & Treat (Routine) [...] | | | Pulmonology | (chronic | [address] | [address] | | | | | obstructive | [address] | [place], | | | | | pulmonary | [place] | [place] [address] | | | | | disease) | [address] | Phone: | | | | | ([facility]) | [place] | [phone] | | | | | Procedures | [address] | Fax: | | | | | F/U [address] | Phone: | [phone] | | | | | DARRICK GRANDE | [phone] | | | | | | 11/19/17 | | | +--------+--------+ + + + + Encounter Details +--------+---------+ + + + | Date | Type | Department | Care Team | Description | +--------+---------+ + + + | 05/20/ | Office | [facility] | Navdeep Grande, | Alveolar | | 2019 | Visit | PULMONARY [address] | MD [address] | hypoventilation | | | | [place], | [place] | (Primary Dx); COPD, | | | | [place] [address] | [address] | mild (HCC); Tobacco | | | | [phone] | | use disorder; | | | | | | Hypoxemia; JESUSITA and | | | | | | COPD overlap | | | | | | syndrome (HCC) | +--------+---------+ + + + Social [...] + + + | Blood Pressure | 150/98 | 05/20/2018 2:26 PM | | | | | PST | | + + + + + | Pulse | 96 | 05/20/2018 2:26 PM | | | | | PST | | + + + + + | Temperature | - | - | | + + + + + | Respiratory Rate | - | - | | + + + + + | Oxygen Saturation | 95% | 05/20/2018 2:26 PM | RA | | | | PST | | + + + + + | Inhaled Oxygen | - | - | | | Concentration | | | | + + + + + | Weight | 106.8 kg (235 lb 7.2 | 05/20/2018 2:26 PM | | | | oz) | PST | | + + + + + | Height | 170.2 cm (5' 7") | 05/20/2018 2:26 PM | | | | | PST | | + + + + + | Body Mass Index | 36.88 | 05/20/2018 2:26 PM | | | | | PST | | + + + + + documented in this encounter Progress Notes Navdeep Grande MD - 05/20/2018 2:30 PM PSTFormatting of this note might be different f rom the original. Pulmonary Sleep Follow Up 05/20/2018 HPI Kait Min is a 47 y.o. female patient of Bart Ba DO here today for follow up o f obstructive sleep apnea, alveolar hypoventilation, COPD and heavy tobacco use. She notes that they have been wearing their IVAPS 4-5 hours per night ~6 days per week. The ir compliance has been Fair. Once wakes up then wears only O2 at 3.5 LPM. They are not having issues with their IVAPS equipment such as the sensation of excessive pr essure or a poorly fitting mask. Kait Min feels like they are not more rested sinc e starting on CPAP. They are routinely napping. Occurs 3 times per week for 0.5-2 hrs. The patient is currently using a combination nasal pillows/oral mask. Kait is also under the impression that she's had recent problems with sinus infections which she attributes to suboptimal cleanliness her CPAP tubing. This the patient claims to be cleaning her CPAP tu ender and he'll unit up to dry daily. O2 through 5LPM through IVAPS. The patient is not noting nasal congestion. The humidity on the machine set at ?. Kait typically goes to bed at 6-8 PM and rises in the morning to start the day at 3 AM. She estimates that it takes 25-30 minutes to fall asleep. They typically have nocturia or ot her nighttime awakenings 2 times a night and she usually gets back to sleep with difficulty. She has has not replaced their CPAP mask or tubing since our last clinic appointment. Wearing O2 at 3.5 during the day. The patient is using her Ventolin inhaler approximately once a day. She is currently smoking 1.5 packs of cigarettes a day (down from 3 packs of ci garettes a day). Good compliance with Advair is noted. Ms. Min noted several episodes of apparent difficulty awakening orscreaming upon awakeni ng. Episodes do not seem to correlate to wearing IVAPS or not. the patient states that her depression has worsened since our last clinic appointment. No deidre symptoms are reported. Past Medical History Past Medical History: Diagnosis Date Abnormal chest CT Most likely postoperative decortication changes Acid reflux disease Bipolar 1 disorder (HCC) CHRONIC TENSION HEADACHE Classical migraine without mention of intractable migraine Diabetes mellitus, type 2 (HCC) Empyema lung (HCC) 2006 right GI bleeding Hypercholesterolemia Hypertension Hypothyroidism IBS (irritable bowel syndrome) Knee pain Lumbago Lymphedema Nausea and vomiting Nocturia Obesity Panic anxiety syndrome Pneumonia Pyoderma gangreosum-LE Reflux esophagitis Restless leg syndrome Urinary hesitancy Vitamin D deficiency Wrist pain Allergies: Allergies Allergen Reactions Adhesive & Tape Other (See Comments) Other reaction(s): Other (See Comments) Skin sensitivity Skin sensitivity Azithromycin Hives Lamotrigine Medications: Current Outpatient Prescriptions: albuterol (PROAIR HFA) 90 mcg/puff inhaler, Inhale 2 puffs into the lungs every 4 hour s as needed for Shortness of Breath., Disp: 1 Inhaler, Rfl: 3 aspirin 81 mg EC tablet, Take 81 mg by mouth Daily., Disp: , Rfl: azaTHIOprine (IMURAN) 50 mg tablet, Take 1 tablet by mouth 2 times daily. One tablet i n the morning and 2 tablets in the evening, Disp: , Rfl: buprenorphine (BUTRANS) 10 mcg/hr patch, Place 1 patch onto the skin Once a week., Dis p: , Rfl: busPIRone (BUSPAR) 5 mg tablet, Take 5 mg by mouth 2 times daily., Disp: , Rfl: cloNIDine (CATAPRES) 0.2 mg/24 hr patch, Place 1 patch onto the skin Once a week., Dis p: , Rfl: ergocalciferol (VITAMIN D-2) 50,000 units capsule, Take 50,000 Units by mouth Once a w [place]., Disp: , Rfl: fluticasone-salmeterol (ADVAIR DISKUS) 250-50 mcg/puff diskus inhaler, Inhale 1 puff i nto the lungs Twice Daily., Disp: 1 each, Rfl: 11 LANTUS SOLOSTAR 100 UNIT/ML injection (pen), Inject 20 Units under the skin nightly., Disp: , Rfl: levothyroxine (SYNTHROID) 100 mcg tablet, Take 100 mcg by mouth Daily., Disp: , Rfl: levothyroxine (SYNTHROID, LEVOTHROID) 300 MCG tablet, Take 300 mcg by mouth Daily., Di sp: , Rfl: LYRICA 75 MG capsule, Take one capsule three times daily, Disp: , Rfl: magnesium oxide (MAG-OX) 400 mg tablet, Take 1 tablet by mouth Daily., Disp: , Rfl: metFORMIN (GLUCOPHAGE) 500 mg tablet, Take 1,000 mg by mouth 2 times daily (with break fast & dinner)., Disp: , Rfl: ofloxacin (OCUFLOX) 0.3% ophthalmic solution, , Disp: , Rfl: omeprazole (PRILOSEC) 20 mg capsule, Take 1 capsule by mouth every morning (before jermaine akfast)., Disp: 90 capsule, Rfl: 3 ondansetron (ZOFRAN ODT) 4 mg disintegrating tablet, Take 1 tablet by mouth as needed. , Disp: , Rfl: promethazine (PHENERGAN) 25 mg tablet, Take 25 mg by mouth 3 times daily as needed., D isp: , Rfl: Respiratory Therapy Supplies MISC, iVAPS Respiratory rate: 12 VT: 550ml IPAP 19 cmH2O PS 9 cmH2O Warm humidifier/tubing Mask per patient choice, chin strap if appropriate Suppl emental oxygen at 5 L/m through iPAPS Diagnosis: obstructive sleep apnea, COPD and alveolar hypoventilation Duration: 99 months, Disp: 1 each, Rfl: 0 simvastatin (ZOCOR) 20 mg tablet, Take 20 mg by mouth nightly., Disp: , Rfl: sulfaSALAzine (AZULFIDINE) 500 MG EC tablet, Take 1,000 mg by mouth 2 times daily., Di sp: , Rfl: tiZANidine (ZANAFLEX) 4 mg tablet, Take 4 mg by mouth nightly., Disp: , Rfl: torsemide (DEMADEX) 20 mg tablet, Take 20 mg by mouth Daily., Disp: , Rfl: traZODone (DESYREL) 100 mg tablet, Take 300 mg by mouth nightly., Disp: , Rfl: UNIFINE PENTIPS 31G X 8 MM, Daily., Disp: , Rfl: verapamil (CALAN SR) [...] 02/15/2015, 02/17/2016 INFLUENZA QUADR W/PRES (PED/ADOL/ADULT) MULTIDOSE 01/27/2017, 02/10/2018 PNEUMOCOCCAL CONJUGATE 13-VALENT (PCV13) 03/19/2013, 04/24/2014 PNEUMOCOCCAL POLYSACCHARIDE 23-VALENT (PPSV23) 04/04/2009, 03/19/2013, 01/10/2015 TDAP, (ADOL/ADULT) 08/29/2011 Objective BP (!) 150/98 | Pulse 96 | Ht 1.702 m (5' 7") | Wt 106.8 kg (235 lb 7.2 oz) | SpO2 95% Comment: RA | BMI 36.88 kg/m Appearance: Alert, cooperative, no distress, appears stated age Head: Normocephalic, without obvious abnormality, atraumatic Eyes: PERRL, conjunctiva/corneas clear Nose: Nares normal, septum midline, mucosa normal, no drainage or sinus tenderness Throat: Lips, mucosa, and tongue normal; teeth/dentures normal, M3 4 Neck: Supple, symmetrical, no JVD Lungs: No accessory muscle use, evidence of some and expiratory wheezes on the right. Nocrackles or rhonchi. No dullness to percussion. Chest Wall: No tenderness or deformity Heart: Regular rate and rhythm, S1, S2 normal, no murmur, rub or gallop Extremities: Extremities normal, atraumatic, no cyanosis, clubbing. none edema Skin: Warm and dry Lymph nodes: Cervical and supraclavicular nodes normal Neurologic: Gait normal IVAPS compliance report current settings IPAP max 19, IPAP minimum 12, EPAP 9 cm H2O, res piratory rate 12, inspiratory time 1.5, tidal volume 350 mL, rise time 1. Supplemental oxyg en at 5 L/m through IVAPS. Date drainage 03/14/18 04/06/18. Percentage of days used 87.5 . Average usage on days used 4 hours and 24 minutes. Range of usage between 4 hours and 11 hours. Assessment 1. Apparent alveolar hypoventilation resulting in significant nocturnal hypoxemia despit e use of CPAP. The patient underwent a split-night polysomnogram on 11/22/17 which showed an IPAP of 19 with an EPAP of 9 and supplemental oxygen at 5 L/m still resulted in oxygen desat uration down to 85%. Related to the patient's alveolar hypoventilation and probable COPD therapy with IVAPS was initiated. The patient's usage of IVAPS seems reasonable though Ms. Min reports symptoms that are difficult to interpret. It sounds as if at times she is very lethargic upon awaken ing and other times screaming/confused. These symptoms do not appear to correlate with whet her she is actually wearing IVAPS at the time or not. The patient's bipolar disorder/depres james has apparently worsened over the last several months. Ms. Min is a new primary care provider. From my perspective it is difficult to know whether the patient's problems with tolerating IVAPS are secondary to the actual device, her alveolar hypoventilation, polypharmacy or her underlying psychiatric disorder. The patient also reportedly is having problems with recurrent sinus infections despite what sounds like reasonable CPAP mask/tubing hygiene. I suggested to the patient that she be referred to the sleep center for further evaluation/ expertise. 2. COPD Gold stage I. Remains treated with Advair and Ventolin. Patient is up-to-date with respect to her seasonal influenza vaccination, Prevnar and Pneumovax. 3. Hypoxemia reasonable O2 saturation noted today without supplemental oxygen. Patient wears supplemental oxygen primarily at night (5 L/m through IVAPS or 3.5 L/m without IVAPS). Total duration of the patient's clinic appointment was in excess of 35 minutes. Greater th an 50% time was spent in counseling related to obstructive sleep apnea/treatment with IVAPS. Plan 1. Referral to the sleep center to be evaluated by Dr. Mcdaniel or Aaron. 2. Pulmonary clinic follow-up appointment regarding the patient's obstructive lung disease /alveolar hypoventilation in 2 months time. 3. We will continue with IVAPS for the time being. CC: Ora Slater PA documented in this encounter Plan of Treatment +--------+---------+ + + + | Date | Type | Specialty | Care Team | Description | +--------+---------+ + + + | 06/19/ | Office | Neurology | Jimbo Samayoa MD | | | 2019 | Visit | | [address] | | | | | | [place], [place] | | | | | | [id number] | | | | | | | | +--------+---------+ + + + | 07/26/ | Office | Pulmonology | Navdeep Grande, | | | 2019 | Visit | | MD [address] | | | | | | [place] | | | | | | [address] | | | | | | | | +--------+---------+ + + + + + +--------+ + + | Name | Type | Priori | Associated Diagnoses | Order Schedule | | | | ty | | | + + +--------+ + + | AMB REFERRAL TO [facility] | Outpatient | Routin | Alveolar | Ordered: 05/20/2018 | | [facility] | Referral | e | hypoventilation JESUSITA | | | | | | and COPD overlap | | | | | | syndrome (HCC) | | + + +--------+ + + documented as of this encounter Visit Diagnoses + + | Diagnosis | + + | Alveolar hypoventilation - Primary Other dyspnea and respiratory abnormality | + + | COPD, mild (HCC) Chronic airway obstruction, not elsewhere classified | + + | Tobacco use disorder | + + | Hypoxemia | + + | JESUSITA and COPD overlap syndrome (HCC) | + + documented in this encounter
--- OUTSIDE RECORDS SUMMARY | ~2019-05-03 | XMS | Encounter Summary ---
Demographics + + + | Address | [address] | | | [place] [address] | + + + | Home Phone | | + + + | Preferred Language | Unknown | + + + | Marital Status | Single | + + + | Hindu Affiliation | CHR | + + + | Race | White | + + + | Ethnic Group | Not or | + + + Author + + + | Author | [facility] | + + + | Organization | [facility] | + + + | Address | Unknown | + + + | Phone | Unavailable | + + + Support + + + + + | Name | Relationship | Address | Phone | + + + + + | Scot Johnson | ECON | [address] | | | | | [place] [address] | | + + + + + Care Team Providers + +------+ + | Care Geospatial Systems Integrator Name | Role | Phone | + +------+ + PCP | Unavailable | + +------+ + Encounter Details +--------+ + + + + | Date | Type | Department | Care Team | Description | +--------+ + + + + | 01/14/ | Office | [facility] | Note, Outpatient | Progress Note | | 1998 | Visit-Trans | MEDICINE | Clinic | | | | cribed | | | | +--------+ + + [...] documented as of this encounter Progress Notes Interface, Supervisor Graphite In - 04/28/2006 1:02 AM PSTCLINIC DATE: 01/14/1998 RHEUMATOLOGY CLINIC SUBJECTIVE: This is a follow up on rheumatoid arthritis. The patient is a 27-year-old female with history of rheumatoid arthritis. The patient was seen here in October with diagnosis of rheumatoid arthritis, which at that time she was note to have multiple joints involved and started her on methotrexate 7.5 milligrams once per week. Since then, the patient reports significant resolution of her symptoms. She feels about 80% improved. She reports that she has decreased pain, less stiffness in the morning, it takes her about hour in the morning to flex her joints, whereas previously it would take her three hours to do this. The patient has less fatigue, sleeps about ten hours per night, without waking up. In the morning she takes one nap per day. She still does have significant pain in her feet. She does have trouble walking. Her walking ability is still limited to about a half a block before she needs to stop for a period of time. Overall, the patient has been doing well for the past couple of days, had some more knee pain, but has not noticed any swollen inflamed joints. OBJECTIVE: Blood pressure 122/68, pulse of 80, weight 277. GENERAL: Well appearing female in no acute distress. HEENT: Unremarkable. No conjunctival hemorrhages, no aphthous ulcers. No petechiae noted. NECK: Supple without adenopathy. LUNGS: Clear to auscultation and percussion bilaterally, no wheezes heard. CARDIOVASCULAR: Regular rate and rhythm without murmurs, gallops or rubs. ABDOMEN: Soft, nontender, positive bowel sounds, no hepatosplenomegaly. MUSCULOSKELETAL: Upper extremities reveal multiple swollen joints bilaterally. She had early boutonniere's deformity on the left hand fourth and fifth digit. The patient had ganglionic cyst on the right dorsum of the wrist. There were subcutaneous nodules over the olecranon portion and the Achilles. She had good range of motion in all her extremities, somewhat limited by pain. Lower extremities: no joint effusions, or arthritis noted. On cervical examination, she had limited rotation; however, had a good flexion and extension. ASSESSMENT: This 27-year-old female who is here for follow up of arthritis had been doing significantly well with methotrexate 7.5 q week. Today she has mild joint effusions. PLAN: Will stay with methotrexate 7.5 milligrams q week. Will call the patient's physician to make sure we are checking monthly liver function tests and CBC. The patient states that this has been done and there were no abnormal labs as far as she is concerned. Follow up in about two to four [address] Dawson. MD Letty Lipscomb M.D. [employer], Medicine Arthritis and Rheumatic Disease ALBERTO/eddie Electronically signed by Interface, Supervisor Graphite In at 01/2007 1:02 AM PSTdocumented in this encounter Plan of Treatment Not on filedocumented as of this encounter Visit Diagnoses Not on filedocumented in this encounter"
--- OUTSIDE RECORDS SUMMARY | ~2019-05-03 | XMS | Encounter Summary ---
Demographics + + + | Address | [address] | | | [place] [address] | + + + | Home Phone | | + + + | Preferred Language | Unknown | + + + | Marital Status | Single | + + + | Taoist Affiliation | Unknown | + + + | Race | Unknown | + + + | Ethnic Group | Unknown | + + + Author + + + | Author | [facility] | | | and [place] | + + + | Organization | [facility] | | [...] | | | | | [place] [address] | | + + + + + | Robson Min | ECON | Unknown | | + + + + + | Isabella Whitehead | ECON | Unknown | | + + + + + Care Team Providers + +------+ + | Care Business Transformation Consultant Name | Role | Phone | [...] Description | +--------+---------+ + + + | 11/03/ | Office | [facility] | Neno Walker | Nocturnal oxygen | | 2019 | Visit | SLEEP DISORDER [address] | MD [address] | desaturation | | | | [address] | [address] | (Primary Dx); | | | | [place] [address] | [place] [address] | Chronic obstructive | | | | [phone] | [phone] | pulmonary disease, | | | | [...] + + + | Blood Pressure | 120/80 | 11/03/2018 12:54 PM | | | | | PDT | | + + + + + | Pulse | 86 | 11/03/2018 12:54 PM | | | | | PDT | | + + + + + | Temperature | - | - | | + + + + + | Respiratory Rate | 16 | 11/03/2018 12:54 PM | | | | | PDT | | + + + + + | Oxygen Saturation | 96% | 11/03/2018 12:54 PM | | | | | PDT | | + + + + + | Inhaled Oxygen | - | - | | | Concentration | | | | + + + + + | Weight | 95.9 kg (211 lb 6.7 | 11/03/2018 12:54 PM | | | | oz) | PDT | | + + + + + | Height | - | - | | + + + + + | Body Mass Index | 33.11 | 09/22/2018 10:48 AM | | | | | PDT | | + + + + + documented in this encounter Progress Notes Neno Walker Jr., MD - 11/03/2018 1:00 PM PDTThis patient comes in for follow-up after having undergone polysomnographically guided oxygen titration because of severe nocturnal o xygen desaturation in a patient who does not have significant obstructive sleep apnea. She is suspected of having COPD with air-trapping. I have reviewed the following study with her : Polysomnogram Report on Kait Min performed on October 26, 2018. Clinical Information: Kait Min is a 48 y.o. female who underwent polysomnographicall y guided oxygen titration on October 26, 2018 because of severe nocturnal oxygen desaturation i n a patient with chronic obstructive pulmonary disease but without significant obstructive s leep apnea (diagnostic nocturnal polysomnography performed in September 21, 2018 demonstrated an a pnea hypotony index of 2.6. Farhad oxygen saturation was 81% and the patient spent 105.1 min utes with an oxygen saturation less than or equal to 88%). Daytime arterial blood gases hav e demonstrated on room air a PO2 that is not elevated (and thus the patient is not qualified for bilevel positive airway pressure therapy). Technical Information: Please see technical data which is attached. Definitions (The AASM Manual for the Scoring [...] breaths does not meet criteria for an bridge repair crew person ea or hypopnea. Sleep Architecture: Lights out was recorded at 2151 hundred hours on October 26, 2018 and lig hts on was recorded at 0606 hundred hours on October 27, 2018. The latency to sleep onset was s hort at 2 minutes. The patient slept for 347.5 minutes out of 495 minutes of study time resu lting an a sleep efficiency that was low at 70.2 %. The amount of N1 sleep was normal at 3.5 % of the Total Sleep Time; the amount of N2 sleep was normal at 38 % of the Total Sleep Denis e; the amount of N3 sleep was elevated at 53.4 % of the Total Sleep Time; the amount of REM sleep was low at 5.2 % of the Total Sleep Time and the latency to REM sleep was prolonged at 448 minutes. Sleep in the following positions was recorded: left lateral decubitus 79.6%, right lateral decubitus 0%, supine 20.4%, prone 0%. Sleep was not significantly fragmented; the Arousal Index was 8.6. The patient reported this to be a usual night's sleep. Cardiopulmonary Monitoring: The heart rate averaged in the 70s beats per minute. Mild rate variability was noted. The rhythm was sinus. In the course of the evening there were 5 obstructive apneas, 0 mixed apneas, 0 central bridge repair crew person eas, 3 hypopneas, and 18 Respiratory Effort Related Arousals (RERA's). The Respiratory Distu rbance Index (RDI) was normal at 4.5; the Apnea-Hypopnea Index (AHI) was normal at 1.4; the Apnea Index (AI) was normal at 0.5. The respiratory events occasioned minimal sleep fragmentation; the Respiratory Arousal Inde x was 3.8. The farhad oxygen saturation was 72% and the patient spent 97.3 minutes with an oxygen satur ation of less than or equal to 88%. She was gradually titrated from oxygen 2 L/min to oxyge n 5 L/min which was required to maintain an oxygen saturation consistently higher than or eq ual to 88%. TCO2 was elevated (55 to 59 mmHg for 94 minutes, 60 to 64 mmHg for 230 minutes, greater mary n 65 mmHg for 13 minutes). Respiratory therapist were unable to obtain a timely arterial blood gas.. Limb Movement Monitoring: There were 32 Periodic Limb Movements (PLMS Index of 5.5) of whic h 7 were associated with arousals; the PLMS Arousal Index was normal at 1.2. Interpretation: This polysomnogram is abnormal secondary to: Severe nocturnal oxygen desaturation is noted. Oxygen 5 L/min is required to maintain oxyg en saturations above 88%.. Suggestions: 1. The principles of sleep hygiene should be reviewed with the patient. 2. Oxygen 5 L/min is advised while sleeping PULMONARY FUNCTION TESTING SPIROMETRY: The FVC was [...] With ambulation O2 saturation fell to a farhad of 89%. Hea rt rate peaked at [...] signed by: Navdeep Grande MD 09/22/2018 14:54 [facility] BP 120/80 | Pulse 86 | Resp 16 | Wt 95.9 kg (211 lb 6.7 oz) | SpO2 96% | BMI 33.11 kg/ m A: Nocturnal Oxygen Desaturation: Her nocturnal oxygen desaturation is probably secondary t o her chronic pulmonary disease. There is no evidence of significant obstructive apnea. I am suggest we increase her oxygen to 5 L at night. I've discussed this with her. P: O2 5 l/min while sleeping. F/u with Dr. Grande Today, 15 minutes was spent face to face with the patient; the majority of time was spent c virginiaeling regarding nocturnal oxygen desaturation. documented in th is encounter Plan of Treatment +--------+---------+ + + + | Date | Type | Specialty | Care Team | Description | +--------+---------+ + + + | 06/19/ | Office | Neurology | iJmbo Samayoa MD | | | 2019 | Visit | | [address] | | | | | | [place] | | | | | | [address] | | | | | | | | +--------+---------+ + + + | 07/26/ | Office | Pulmonology | Navdeep Grande, | | | 2019 | Visit | | [address] | | | | | | [place] | | | | | | [address] | | | | | | | | +--------+---------+ + + + documented as of this encounter Visit Diagnoses + + | Diagnosis | + + | Nocturnal oxygen desaturation - Primary Idiopathic sleep related nonobstructive | | alveolar hypoventilation | + + | Chronic obstructive pulmonary disease, unspecified COPD type (HCC) | + + documented in this encounter"
--- OUTSIDE RECORDS SUMMARY | ~2019-05-03 | XMS | Encounter Summary ---
Demographics + + + | Address | [address] | | | [place] [address] | + + + | Home Phone | | + + + | Preferred Language | Unknown | + + + | Marital Status | Single | + + + | Church Affiliation | Unknown | + + + [...] | | | | | [place] [address] | | + + + + + | Robson Min | ECON | Unknown | | + + + + + | Isabella Whitehead | ECON | Unknown | | + + + + + Care Team Providers + +------+ + | Care Truck Car And Bus Cleaner Name | Role | Phone | + +------+ + | Ora Slater | PCP | | + +------+ + Reason for Visit + + + | Reason | Comments | + + + | Insurance | Botox | | Authorization | | + + + Encounter Details +--------+ + + + + | Date | Type | Department | Care Team | Description | +--------+ + + + + | 09/26/ | Telephone | [facility] | Tariq, | Insurance | | 2019 | | HOSPITAL NEUROLOGY | Theo, [facility] [phone] | Authorization | | | | CLIN[address] | [address] [facility], | (Botox) | | | | [place], | [place] [address] | | | | | [place] [address] | [phone] | | | | | [phone] | | | +--------+ + + + [...] [place] | | | | | | [address] | | | | | | | | +--------+---------+ + + + | 07/26/ | Office | Pulmonology | Navdeep Grande, | | | 2020 | Visit | | [address] | | | | | | [place] | | | | | | [address] | | | | | | | | +--------+---------+ + + + documented as of this encounter Visit Diagnoses Not on filedocumented in this encounter"
--- OUTSIDE RECORDS SUMMARY | ~2019-05-03 | XMS | Encounter Summary ---
Demographics + + + | Address | [address] | | | [place] [address] | + + + | Home Phone | | + + + | Preferred Language | Unknown | + + + | Marital Status | Single | + + + | Cheondoism Affiliation | CHR | + + + [...] | | | | | [place] [address] | | + + + + + Care Team Providers + +------+ + | Care Music Researcher Name | Role | Phone | + +------+ + PCP | Unavailable | + +------+ + Encounter Details +--------+ + + + + | Date | Type | Department | Care Team | Description | +--------+ + + + + | 12/03/ | Results | | Other, Faculty | | | 2002 | Only | | [phone] | | +--------+ + + + + [...] | + +--------+ + + + | BLOOD GASES, | Urgent | 12/03/2002 | | Results for this | | ARTERIAL - LAB | | 5:15 AM | | procedure are in the | | | | PDT | | results section. | + +--------+ + + + documented in this encounter Results BLOOD GASES, ARTERIAL (12/03/2002 5:15 AM PDT) + +--------+ + + + | Component | Value | Ref Range | Performed | Pathologist | | | | | At | Signature | + +--------+ + + + | PAT TEMP | 37.6 | Degree C | [facility] | | | ARTERIAL | | | DEPARTMENT | | | | | | OF | | | | | | PATHOLOGY | | + +--------+ + + + | FIO2 | .4 | | [facility] | | | ARTERIAL | | | DEPARTMENT | | | | | | OF | | | | | | PATHOLOGY | | + +--------+ + + + | PH ARTERIAL | 7.42 | 7.37 - 7.44 | [facility] | | | | | | DEPARTMENT | | | | | | OF | | | | | | PATHOLOGY | | + +--------+ + + + | PCO2 | 40 | 32 - 43 mmHg | [facility] | | | ARTERIAL | | | DEPARTMENT | | | | | | OF | | | | | | PATHOLOGY | | + +--------+ + + + | PO2 | 82 (L) | 83 - 108 mmHg | [facility] | | | ARTERIAL | | | DEPARTMENT | | | | | | OF | | | | | | PATHOLOGY | | + +--------+ + + + | BASE EXCESS | 1.2 | | [facility] | | | ARTERIAL | | | DEPARTMENT | | | | | | OF | | | | | | PATHOLOGY | | + +--------+ + + + | HCO3 | 25 | 21 - 27 mmol/L | [facility] | | | ARTERIAL | | | DEPARTMENT | | | | | | OF | | | | | | PATHOLOGY | | + +--------+ + + + | TOTAL CO2 | 26 | 22 - 28 mmol/L | [facility] | | | ARTERIAL | | | DEPARTMENT | | | | | | OF | | | | | | PATHOLOGY | | + +--------+ + + + | O2 SAT, | 96.8 | 92.0 - 98.0 % | [facility] | | | ARTERIAL | | | DEPARTMENT | | | | | | OF | | | | | | PATHOLOGY | | + +--------+ + + + + + | Specimen | + + | | + + + + + | Narrative | Performed At | + + + | Ordered by UNKNOWN DOCTOR Arterial Blood Gas Blood | [facility] | | Gas results corrected for patient's temp when available | DEPARTMENT OF | | | PATHOLOGY | + + + + + + + + | Performing | Address | City/State/Zipcode | Phone Number | | Organization | | | | + + + + + | [facility] DEPARTMENT OF | [address] | [place] [address] | | | PATHOLOGY | [address] | | | + + + + + | [facility] | [address] | [place] [address] | | | PATHOLOGY | [address] | | | + + + + + documented in this encounter Visit Diagnoses Not on filedocumented in this encounter"
--- OUTSIDE RECORDS SUMMARY | ~2019-05-03 | XMS | Encounter Summary ---
Demographics + + + | Address | [address] | | | [place] [address] | + + + | Home Phone | | + + + | Preferred Language | Unknown | + + + | Marital Status | Single | + + + | Lutheran Affiliation | CHR | + + + [...] | | | | | [place] [address] | | + + + + + Care Team Providers + +------+ + | Care Talent Program Manager Name | Role | Phone | + +------+ + PCP | Unavailable | + +------+ + Encounter Details +--------+ + + + + | Date | Type | Department | Care Team | Description | +--------+ + + + + | 11/03/ | Respiratory | | Other, Faculty | | | 2006 | Therapy | | [phone] | | +--------+ + + + + [...] | + +--------+ + + + | RC DISCHARGE | Routin | 11/03/2005 | | Results for this | | PLANNING | e | 12:20 PM | | procedure are in the | | | | PDT | | results section. | + +--------+ + + + documented in this encounter Results RC DISCHARGE PLANNING (11/03/2005 12:20 PM PDT) + + + + + + | Component | Value | Ref Range | Performed | Pathologist | | | | | At | Signature | + + + + + + | RC | INITIAL EVALUATION OF | | | | | DISCHARGE | HOME RESPIRATORY NEEDS | | | | | PLANNING | HAS BEEN PERFORMED. | | | | | | THEPATIENT'S ADMITTING | | | | | | DIAGNOSIS IS THE | | | | | | FOLLOWING: PNEUMOTHORAX, | | | | | | SPONTANEOUS . .THE | | | | | | PATIENT DOES NOT QUALIFY | | | | | | FOR CONTINUOUS OXYGEN | | | | | | THERAPY AT THE | | | | | | PRESENTTIME DUE TO THE | | | | | | FOLLOWING: DESATURATION | | | | | | EVALUATION STUDY | | | | | | COMPLETED, [facility]PHYSICIANS | | | | | | PROGRESS NOTES. | | | | | | DESATURATION EVALUATION | | | | | | STUDY COMPLETED, | | | | | | [facility]PHYSICIANS PROGRESS | | | | | | NOTES. . Colt | | | | | | ANT Grimm | | | | + + + [...] [facility] | [address] | [place], [place] | | | DIAGNOSTICS - | [address] | [address] | | | PULMONARY FUNCTION | | | | + + + + + documented in this encounter Visit Diagnoses Not on filedocumented in this encounter"
--- OUTSIDE RECORDS SUMMARY | ~2019-05-03 | XMS | Encounter Summary ---
Demographics + + + | Address | [address] | | | [place] [address] | + + + | Home Phone | | + + + | Preferred Language | Unknown | + + + | Marital Status | Single | + + + | Baptism Affiliation | CHR | + + + [...] | | | | | [place] [address] | | + + + + + Care Team Providers + +------+ + | Care Bowling Ball Patcher Name | Role | Phone | + +------+ + PCP | Unavailable | + +------+ + Encounter Details +--------+ + + + + | Date | Type | Department | Care Team | Description | +--------+ + + + + | 10/29/ | Respiratory | | Other, Faculty | | | 2006 | Therapy | | [phone] | | +--------+ + + + + [...] | + +--------+ + + + | ADULT AND SHRINERS | Routin | 10/29/2005 | | Results for this | | TREATMENTS | e | 5:00 AM | | procedure are in the | | | | PDT | | results section. | + +--------+ + + + documented in this encounter Results ADULT AND SHRINERS TREATMENTS (10/29/2005 5:00 AM PDT) + + + + + + | Component | Value | Ref Range | Performed | Pathologist | | | | | At | Signature | + + + + + + | RC | PATIENTS PAIN ASSESSED | | | | | TREATMENTS | AND WAS ZERO ON A SCALE | | | | | | OF ZERO TO 10. PEP | | | | | | THERAPY. DIMINISHED | | | | | | RIGHT BASE . REQUIRES | | | | | | SUCTION: THICK YELLOW | | | | | | SPUTUM. NOIMPROVEMENT | | | | | | AFTER TREATMENT Marcio | | | | | | KALLIE KiserP | | | | + + + [...] + + + + + | [facility] | [address] | [place], [place] | | | DIAGNOSTICS - | [address] | [address] | | | PULMONARY FUNCTION | | | | + + + + + documented in this encounter Visit Diagnoses Not on filedocumented in this encounter"
--- OUTSIDE RECORDS SUMMARY | ~2019-05-03 | XMS | Encounter Summary ---
Demographics + + + | Address | [address] | | | [place] [address] | + + + | Home Phone [...] + | Author | [facility] | | | and [place] | + + + | Organization | [facility] | | | and [place] | + + + | Address | Unknown | + + + | Phone | Unavailable | + + + Support + + + + + | Name | Relationship | Address | Phone | + + + + + | Isabella Min | ECON | [address] | | | | | [place] [address] | | + + + + + | Robson Min | ECON | Unknown | | + + + + + | Isabella Whitehead | ECON | Unknown | | + + + + + Care Team Providers + +------+ + | Care Speech Therapy Teacher Name | Role | Phone | + +------+ + | Bart Ba DO | PCP | | + +------+ + Reason for Visit + + + | Reason | Comments | + + + | Results, Imaging | | + + + Encounter Details +--------+ + + + + | Date | Type | Department | Care Team | Description | +--------+ + + + + | 03/17/ | Telephone [facility] | Jimbo Samayoa MD | Results, Imaging | | 2018 | | [facility] | [address] | | | | | CLINIC [address] | [place] | | | | | [address] [place], | [address] | | | | | [place] [address] | | | | | | [phone] | | | +--------+ + + + [...] [place] | | | | | | [address] | | | | | | | | +--------+---------+ + + + | 07/26/ | Office | Pulmonology | Navdeep Grande, | | | 2020 | Visit | | [address] | | | | | | [place] | | | | | | [id number] | | | | | | | | +--------+---------+ + + + documented as of this encounter Visit Diagnoses Not on filedocumented in this encounter"
--- OUTSIDE RECORDS SUMMARY | ~2019-05-03 | XMS | Encounter Summary ---
Demographics + + + | Address | [address] | | | [place] [address] | + + + | Home Phone | | + + + | Preferred Language | Unknown | + + + | Marital Status | Single | + + + | Orthodoxy Affiliation | CHR | + + + [...] | | | | | [place] [address] | | + + + + + Care Team Providers + +------+ + | Care Crude Oil Treater Name | Role | Phone | + +------+ + PCP | Unavailable | + +------+ + Encounter Details +--------+ + + + + | Date | Type | Department | Care Team | Description | +--------+ + + + + | 10/31/ | Respiratory | | Other, Faculty | | | 2006 | Therapy | | [phone] | | +--------+ + + + + [...] | ADULT AND SHRINERS | Routin | 10/31/2005 | | Results for this | | TREATMENTS | e | 4:00 PM | | procedure are in the | | | | PDT | | results section. | + +--------+ + + + documented in this encounter Results ADULT AND SHRINERS TREATMENTS (10/31/2005 4:00 PM PDT) + + + + + + | Component | Value | Ref Range | Performed | Pathologist | | | | | At | Signature | + + + + + + | RC | PATIENTS PAIN ASSESSED | | | | | TREATMENTS | AND WAS THREE ON A SCALE | | | | | | OF ZERO TO 10. NOT | | | | | | GIVEN.NOT INDICATED AT | | | | | | THIS TIME. Timothy Cabrera, | | | | | | HOUSE REGISTRY RN | | | | + + + [...] + + + + + | [facility] | [address] | [place] | | | DIAGNOSTICS - | [address] | [address] | | | PULMONARY FUNCTION | | | | + + + + + documented in this encounter Visit Diagnoses Not on filedocumented in this encounter"
--- OUTSIDE RECORDS SUMMARY | ~2019-05-03 | XMS | Encounter Summary ---
Demographics + + + | Address | [address] | | | [place] [address] | + + + | Home Phone [...] | | | | | [place] [address] | | + + + + + Care Team Providers + +------+ + | Care Grout Machine Operator Name | Role | Phone | + +------+ + PCP | Unavailable | + +------+ + Encounter Details +--------+ + + + + | Date | Type | Department | Care Team | Description | +--------+ + + + + | 10/24/ | Respiratory | | Other, Faculty | | | 2006 | Therapy | | [phone] | | +--------+ + + + + [...] + | MEDICAL GAS/HUMIDITY | Routin | 10/24/2005 | | Results for this | | | e | 6:19 AM | | procedure are in the | | | | PDT | | results section. | + +--------+ + + + documented in this encounter Results MEDICAL GAS/HUMIDITY (10/24/2005 6:19 AM PDT) + + + + + + | Component | Value | Ref Range | Performed | Pathologist | | | | | At | Signature | + + + + + + | [facility]ICAL | OXYGEN OR HUMIDITY ON | | | | | GAS/HUMIDIT | STANDBY. Joanie Mccormick, | | | | | Y | SHAFT REPAIRER | | | | + + + [...] [facility] | [address] | [place], [place] | | | DIAGNOSTICS - | [address] | [address] | | | PULMONARY FUNCTION | | | | + + + + + documented in this encounter Visit Diagnoses Not on filedocumented in this encounter"
--- OUTSIDE RECORDS SUMMARY | ~2019-05-03 | XMS | Encounter Summary ---
Demographics + + + | Address | [address] | | | [place] [address] | + + + | Home Phone | | + + + | Preferred Language | Unknown | + + + | Marital Status | Single | + + + | Jew Affiliation | CHR | + + + [...] | | | | | [place] [address] | | + + + + + Care Team Providers + +------+ + | Care Tyre Retreader Name | Role | Phone | + +------+ + PCP | Unavailable | + +------+ + Encounter Details +--------+ + + + + | Date | Type | Department | Care Team | Description | +--------+ + + + + | 10/29/ | Respiratory | | Other, Faculty | | | 2006 | Therapy | | [phone] | | +--------+ + + + + [...] this | | TREATMENTS | e | 2:38 PM | | procedure are in the | | | | PDT | | results section. | + +--------+ + + + documented in this encounter Results ADULT AND SHRINERS TREATMENTS (10/29/2005 2:38 PM PDT) + + + + + + | Component | Value | Ref Range | Performed | Pathologist | | | | | At | Signature | + + + + + + | RC | PATIENTS PAIN ASSESSED | | | | | TREATMENTS | AND WAS ONE ON A SCALE | | | | | | OF ZERO TO 10. MDI | | | | | | NOTGIVEN. NOT INDICATED | | | | | | AT THIS TIME. Lio | | | | | | ANT Ambrosio | | | | + + + [...] [facility] | [address] | [place] | | | DIAGNOSTICS - | [address] | [address] | | | PULMONARY FUNCTION | | | | + + + + + documented in this encounter Visit Diagnoses Not on filedocumented in this encounter"
--- OUTSIDE RECORDS SUMMARY | ~2019-05-03 | XMS | Encounter Summary ---
Demographics + + + | Address | [address] | | | [place] [address] | + + + | Home Phone | | + + + | Preferred Language | Unknown | + + + | Marital Status | Single | + + + | Adventist Affiliation | Unknown | + + + | Race | Unknown | + + + | Ethnic Group | Unknown | + + + Author + + + | Author | [facility] | | | and [place] | + + + | Organization | [facility] | | | [...] | | | | | [place] [address] | | + + + + + | Robson Min | ECON | Unknown | | + + + + + | Isabella Whitehead | ECON | Unknown | | + + + + + Care Team Providers + +------+ + | Care Sba Business Development Officer Name | Role | Phone | + +------+ + PCP | Unavailable | + +------+ + Encounter Details +--------+ + + + + | Date | Type | Department | Care Team | Description | +--------+ + + + + | 02/21/ | Hospital | [facility] | Neno Walker | | | 2000 | Encounter | MED CTR SLEEP | MD [place] [address] | | | | | [place] [address] | [facility] | | | | | [place] | [place] [address] | | | | | [address] | [phone] | | | | | [phone] | | | +--------+ + + + [...] [place] | | | | | | [address] | | | | | | | | +--------+---------+ + + + | 07/26/ | Office | Pulmonology | Navdeep Grande, | | | 2019 | Visit | | [address] | | | | | | [place] | | | | | | [address] | | | | | | | | +--------+---------+ + + + documented as of this encounter Visit Diagnoses Not on filedocumented in this encounter"
--- OUTSIDE RECORDS SUMMARY | ~2019-05-03 | XMS | Encounter Summary ---
Demographics + + + | Address | [address] | | | [place] [address] | + + + | Home Phone [...] | | | | | [place] [address] | | + + + + + Care Team Providers + +------+ + | Care Accounting Professional Name | Role | Phone | + +------+ + PCP | Unavailable | + +------+ + Encounter Details +--------+ + + + + | Date | Type | Department | Care Team | Description | +--------+ + + + + | 10/29/ | Respiratory | | Other, Faculty | | | 2006 | Therapy | | [phone] | | +--------+ + + + + [...] this | | TREATMENTS | e | 1:02 AM | | procedure are in the | | | | PDT | | results section. | + +--------+ + + + documented in this encounter Results [facility] TREATMENTS (10/29/2005 1:02 AM PDT) + + + + + + | Component | Value | Ref Range | Performed | Pathologist | | | | | At | Signature | + + + + + + | RC | per dr and rn request | | | | | TREATMENTS | the patient was given a | | | | | | prn tx that was | | | | | | notindicated, patient | | | | | | did not have any | | | | | | improvement to | | | | | | oxygenation post tx | | | | | | PATIENTS PAIN ASSESSED | | | | | | AND WAS ZERO ON A SCALE | | | | | | OF ZERO TO 10. | | | | | | METEREDDOSE INHALER | | | | | | GIVEN WITH COMBIVENT 4 | | | | | | PUFFS . CLEAR . NO | | | | | | COUGH. NOIMPROVEMENT | | | | | | AFTER TREATMENT Marcio | | | | | | Margi, BILINGUAL ACCOUNT MANAGER | | | | + + [...] [facility] | [address] | [facility] [place] | | | DIAGNOSTICS - | [address] | [phone] | | | PULMONARY FUNCTION | | | | + + + + + documented in this encounter Visit Diagnoses Not on filedocumented in this encounter"
--- OUTSIDE RECORDS SUMMARY | ~2019-05-03 | XMS | Encounter Summary ---
Demographics + + + | Address | [address] | | | [place] [address] | + + + | Home Phone | | + + + | Preferred Language | Unknown | + + + | Marital Status | Single | + + + | Jainism Affiliation | CHR | + + + | Race | White | + + + | Ethnic Group | Not or | + + + Author + + + | Author | [facility] | + + + | Organization | [facility] | + + + | Address | Unknown | + + + | Phone | Unavailable | + + + Support + + + + + | Name | Relationship | Address | Phone | + + + + + | Scot Johnson | ECON | [address] | | | | | [place] [address] | | + + + + + Care Team Providers + +------+ + | Care Supervisor Compounding And Finishing Name | Role | Phone | + +------+ + PCP | Unavailable | + +------+ + Encounter Details +--------+ + + + + | Date | Type | Department | Care Team | Description | +--------+ + + + + | 12/07/ | Results | [facility] | Kacy Caba, | | | 2002 | Only | Medicine at [facility] | [address] | | | | | [address] | [address] | | | | | [address] | [place] [address] | | | | | Mailcode: BAUTISTA Stewart | | | | | | Mando Cohen | | | | | | [place], [place] | | | | | | [address] | | | | | | [phone] | | | +--------+ + + + [...] +--------+ + + + | CT CHEST W CONTRAST | Routin | 12/07/2002 | | Results for this | | | e | 4:55 PM | | procedure are in the | | | | PDT | | results section. | + +--------+ + + + documented in this encounter Results CT CHEST W CONTRAST (12/07/2002 4:55 PM PDT) + + + + + + | Component | Value | Ref Range | Performed | Pathologist | | | | | At | Signature | + + + + + + | CT CHEST W | Radiologist 1: ALESSANDRO, | | | | | CONTRAST | VIOLET CuevasCT SCAN OF THE | | | | | | CHEST PERFORMED WITH IV | | | | | | CONTRAST: 12/07/2002 | | | | | | Dictated 12/08/2002 | | | | | | COMPARISON: Comparison | | | | | | with the radiograph | | | | | | from same day. | | | | | | INDICATION: History of | | | | | | empyema, abnormal chest | | | | | | radiograph,respiratory | | | | | | distress. TECHNIQUE: | | | | | | 5-mm collimated scans | | | | | | were obtained from the | | | | | | lung apicesthrough the | | | | | | adrenal glands. A | | | | | | total of 100 cc of | | | | | | 300-Omnipaquecontrast | | | | | | was injected without | | | | | | complication. FINDINGS: | | | | | | The thyroid is mildly | | | | | | enlarged, left lobe | | | | | | greater thanright, | | | | | | likely a goiter. There | | | | | | are scattered small | | | | | | lymph nodes | | | | | | seenthroughout the | | | | | | mediastinum and both | | | | | | axillary regions; they | | | | | | likely arereactive and | | | | | | are not pathologic by | | | | | | size criterion. | | | | | | Residual thymictissue | | | | | | is likely present within | | | | | | the anterior | | | | | | mediastinum. The | | | | | | heartsize is normal, and | | | | | | there is no pericardial | | | | | | effusion. | | | | | | Minimalbilateral | | | | | | pleural effusions are | | | | | | present. Limited | | | | | | evaluation of theupper | | | | | | abdomen appears | | | | | | unremarkable. | | | | | | Pulmonary artery and | | | | | | thoracicaorta appear | | | | | | normal. Minimal | | | | | | subcutaneous emphysema | | | | | | seen in the | | | | | | rightanterior chest wall | | | | | | located posterior to | | | | | | the pectoralis major | | | | | | muscle.Mild thickening | | | | | | of the right pleura is | | | | | | noted superiorly with | | | | | | decreasedvolume. This | | | | | | may represent residual | | | | | | from prior empyema. | | | | | | Pleuralparenchymal | | | | | | scarring/atelectasis is | | | | | | seen bilaterally, right | | | | | | slightlygreater than | | | | | | left. Within the | | | | | | lingula, there is an | | | | | | area of | | | | | | focalconsolidation which | | | | | | may represent pneumonia | | | | | | or a BOOP-like | | | | | | reaction.There is no | | | | | | bronchiectasis or | | | | | | evidence of aspiration. | | | | | | No pulmonaryedema is | | | | | | seen. IMPRESSION: 1. | | | | | | Minimal bilateral | | | | | | pleural effusions with | | | | | | findings suggestive | | | | | | formild chronic pleural | | | | | | thickening involving the | | | | | | right upper | | | | | | hemithorax.This may | | | | | | relate to the previous | | | | | | history of empyema. 2. | | | | | | Bilateral areas of | | | | | | probable atelectasis, | | | | | | right greater than | | | | | | left.A focal | | | | | | consolidative process is | | | | | | present within the | | | | | | lingula;differential | | | | | | would include an | | | | | | indolent or resolving | | | | | | pneumonia versus | | | | | | aBOOP-like reaction. 3. | | | | | | Small amount of | | | | | | subcutaneous emphysema | | | | | | involving the right | | | | | | chestwall. END OF | | | | | | IMPRESSION: | | | | + + + + + + + + | Specimen | + + | | + + + +---------+ + + | Performing | Address | City/State/Zipcode | Phone Number | | Organization | | | | + +---------+ + + | [facility] DEPARTMENT OF | | | | | RADIOLOGY | | | | + +---------+ + + documented in this encounter Visit Diagnoses Not on filedocumented in this encounter"
--- OUTSIDE RECORDS SUMMARY | ~2019-05-03 | XMS | Encounter Summary ---
Demographics + + + | Address | [address] | | | [place] [address] | + + + | Home Phone [...] | | | | | [place] [address] | | + + + + + Care Team Providers + +------+ + | Care Egg Setter Name | Role | Phone | + +------+ + PCP | Unavailable | + +------+ + Encounter Details +--------+ + + + + | Date | Type | Department | Care Team | Description | +--------+ + + + + | 10/29/ | Respiratory | | Other, Faculty | | | 2006 | Therapy | | [phone] | | +--------+ + + + + [...] | + +--------+ + + + | JOCELYNN PINO | Routin | 10/29/2005 | | Results for this | | | e | 2:10 AM | | procedure are in the | | | | PDT | | results section. | + +--------+ + + + documented in this encounter Results JOCELYNN PINO (10/29/2005 2:10 AM PDT) + + + + + + | Component | Value | Ref Range | Performed | Pathologist | | | | | At | Signature | + + + + + + | RC EVAL | RESPIRATORY CARE | | | | | ADULT | EVALUATION ADMISSION | | | | | | DIAGNOSIS: PNEUMOTHORAX, | | | | | | SPONTANEOUS . THE | | | | | | INITIAL RESPIRATORYCARE | | | | | | ORDER IS FOR EVALUATE | | | | | | AND TREAT . | | | | | | PULMONARY HISTORY | | | | | | INCLUDES . CURRENT | | | | | | PULMONARY PROBLEMS | | | | | | INCLUDE SPONTANEOUS | | | | | | PNEUMOTHORAX . | | | | | | SMOKINGHISTORY: NEVER | | | | | | SMOKED .4 puffs mdi | | | | | | q4prn . VITAL | | | | | | SIGNS:PATIENTS | | | | | | PAINASSESSED AND WAS | | | | | | ZERO ON A SCALE OF ZERO | | | | | | TO 10. TEMP = 37.1 | | | | | | C, HR = 98 , RR = | | | | | | 20 , SaO2 = 92 % | | | | | | ON NASAL CANNULA AT 4 | | | | | | REQUIRES SUCTION:THICK | | | | | | YELLOW SPUTUM. CLEAR | | | | | | AND decreased RIGHT BASE | | | | | | . NORMAL, | | | | | | QUIETBREATHING . | | | | | | AMBULATES WITH | | | | | | ASSISTANCE . COOPERATIVE | | | | | | WITH ASSISTANCE .SPUTUM | | | | | | CULTURES: NONE WITHIN | | | | | | 72 HOURS . . CHEST | | | | | | IMAGING: | | | | | | ATELECTASIS,SINGLE LOBE | | | | | | . THERAPEUTIC GOALS: | | | | | | IMPROVE | | | | | | OXYGENATION/VENTILATION | | | | | | TREATATELECTASIS AND | | | | | | MOBILIZE SECRETIONS . | | | | | | PLAN: BRONCHIAL HYGIENE | | | | | | THERAPY ASPEP/FLUTTER | | | | | | THERAPY AND SUCTION BY | | | | | | RESPIRATORY CARE and | | | | | | cont home reg mdi's. | | | | | | KALLIE RamirezP | | | | + + + [...] [facility] | [address] | [place], [place] | | | DIAGNOSTICS - | [address] | [address] | | | PULMONARY FUNCTION | | | | + + + + + documented in this encounter Visit Diagnoses Not on filedocumented in this encounter"
--- OUTSIDE RECORDS SUMMARY | ~2019-05-03 | XMS | Encounter Summary ---
Demographics + + + | Address | [address] | | | [place] [address] | + + + | Home Phone | | + + + | Preferred Language | Unknown | + + + | Marital Status | Single | + + + | Scientology Affiliation | CHR | + + + [...] | | | | | [place] [address] | | + + + + + Care Team Providers + +------+ + | Care Mold Sheet Cleaner Name | Role | Phone | + +------+ + PCP | Unavailable | + +------+ + Encounter Details +--------+ + + + + | Date | Type | Department | Care Team | Description | +--------+ + + + + | 10/30/ | Respiratory | | Other, Faculty | | | 2006 | Therapy | | [phone] | | +--------+ + + + + [...] | [facility]ULT AND [facility] | Routin | 10/30/2005 | | Results for this | | TREATMENTS | e | 10:45 PM | | procedure are in the | | | | PDT | | results section. | + +--------+ + + + documented in this encounter Results ADULT AND [facility]RINERS TREATMENTS (10/30/2005 10:45 PM PDT) + + + + + + | Component | Value | Ref Range | Performed | Pathologist | | | | | At | Signature | + + + + + + | RC | bipap not indicated at | | | | | TREATMENTS | this time MDI NOT | | | | | | GIVEN. NOT INDICATED AT | | | | | | THIS TIME. PATIENTS | | | | | | PAIN ASSESSED ANDWAS | | | | | | THREE ON A SCALE OF ZERO | | | | | | TO 10. PEP THERAPY . | | | | | | DIMINISHED RIGHT | | | | | | LUNGAND BOTH BASES | | | | | | RHONCHI UPPER AIRWAY . | | | | | | GOOD PRODUCTIVE COUGH: | | | | | | THICK TANBLOOD STREAKED | | | | | | SPUTUM. DECREASED WORK | | | | | | OF BREATHING MINIMAL | | | | | | IMPROVEMENTAFTER | | | | | | TREATMENT BREATH SOUNDS | | | | | | IMPROVED MODERATE | | | | | | IMPROVEMENTS | | | | | | AFTERTREATMENT | | | | | | Vinny Hackett, | | | | | | EXTRACTOR AND WRINGER OPERATOR | | | | + + + [...] [facility] | [address] | [place], [place] | | | DIAGNOSTICS - | [address] | [address] | | | PULMONARY FUNCTION | | | | + + + + + documented in this encounter Visit Diagnoses Not on filedocumented in this encounter"
--- OUTSIDE RECORDS SUMMARY | ~2019-05-03 | XMS | Encounter Summary ---
Demographics + + + | Address | [address] | | | [place] [address] | + + + | Home Phone | | + + + | Preferred Language | Unknown | + + + | Marital Status | Single | + + + | Mu-Ism Affiliation | CHR | + + + [...] | | | | | [place] [address] | | + + + + + Care Team Providers + +------+ + | Care Java Programmer Name | Role | Phone | + [...] | + + + + + | [facility] | [address] [place] [address] | [place] [address] | | | PATHOLOGY | [address] | | | + + + + + | [facility] | [address] [place] [address] | [place] [address] | | | PATHOLOGY | [address] [...] DEPARTMENT OF | [address] | [place] [address] | | | PATHOLOGY | [address] | | | + + + + + | [facility] | [address] | [place] [address] | | | PATHOLOGY | [address] [...] | + + + + + | [facility] | [address] | [place] [address] | | | PATHOLOGY | [address] | | | + + + + + | [facility] | [address] | [place] [address] | | | PATHOLOGY | [address] [...] | + + + + + | [facility] | [address] | [place] [address] | | | LAB-MICRO | | | [...] | + + + + + | [facility] | [address] | [place] [address] | | | LAB-MICRO | | | | + + + + + CALEB ADAMSON (12/02/2002 5:05 PM PDT) + + + [...] + + + | [facility] | [address] | [place] [address] | | | LAB-MICRO | | | | + + + + + CULT, BLOOD DUNCAN & TEA (12/02/2002 5:00 PM PDT) + + + [...] + + + | [facility] | [address] | [place] [address] | | | LAB-MICRO | | | [...] | + + + + + | [facility] DEPARTMENT OF | [facility] | [place] [address] | | | PATHOLOGY | [address] | | | + + + + + | [facility] DEPARTMENT OF | [facility] | [place] [address] | | | PATHOLOGY | [address] [...] | + + + + + | [facility] DEPARTMENT OF | [address] | [place] [address] | | | PATHOLOGY | [address] | | | + + + + + | [facility] DEPARTMENT OF | [address] | [place] [address] | | | PATHOLOGY | [address] [...] | + + + + + | [facility] | [address] | [place] [address] | | | PATHOLOGY | [address] | | | + + + + + | [facility] | [address] | [place] [address] | | | PATHOLOGY | [address] [...] + | [facility] DEPARTMENT OF | [address] | [place] [address] | | | PATHOLOGY | [address] | | | + + + + + | [facility] DEPARTMENT OF | [address] | [place] [address] | | | PATHOLOGY | [address] [...] DEPARTMENT OF | [address] | [place] [address] | | | PATHOLOGY | [address] | | | + + + + + | [facility] | [address] | [place] [address] | | | PATHOLOGY | [address] [...]
--- OUTSIDE RECORDS SUMMARY | ~2019-05-03 | XMS | Encounter Summary ---
Demographics + + + | Address | [address] | | | [place] [address] | + + + | Home Phone | | + + + | Preferred Language | Unknown | + + + | Marital Status | Single | + + + | Denominational Affiliation | Unknown | + + + | Race | Unknown | + + + | Ethnic Group | Unknown | + + + Author + + + | Author | [facility] | | | and [place] | + + + | Organization | [facility] | | [...] | | | | | [place] [address] | | + + + + + | Robson Min | ECON | Unknown | | + + + + + | Isabella Whitehead | ECON | Unknown | | + + + + + Care Team Providers + +------+ + | Care Political Organizer Name | Role | Phone | + +------+ + | Bart Ba DO | PCP | | + +------+ + Reason for Visit +---------+ + | Reason | Comments | +---------+ + | Results | nocturnal oximetry on room air | +---------+ + Encounter Details +--------+ + + + + | Date | Type | Department | Care Team | Description | +--------+ + + + + | 08/25/ | Telephone | [facility] | [place], | Results (nocturnal | | 2013 | | PULMONARY [address] | MD [address] | oximetry on room | | | | [place], | [place] | air) | | | | [place] [address] | [address] | | | | | [phone] | | | +--------+ + + + [...] [place] | | | | | | [address] | | | | | | | | +--------+---------+ + + + | 07/26/ | Office | Pulmonology | Navdeep [place], | | | 2019 | Visit | | MD Cely GORE | | | | | | [place] | | | | | | [address] | | | | | | | | +--------+---------+ + + + documented as of this encounter Visit Diagnoses Not on filedocumented in this encounter"
--- OUTSIDE RECORDS SUMMARY | ~2019-05-03 | XMS | Encounter Summary ---
Demographics + + + | Address | [address] | | | [place] [address] | + + + | Home Phone | | + + + | Preferred Language | Unknown | + + + | Marital Status | Single | + + + | Worship Affiliation | Unknown | + + + | Race | Unknown | + + + | Ethnic Group | Unknown | + + + Author + + + | Author | [facility] | | | and [place] | + + + | Organization | [facility] | | | and [...] | | | | | [place] [address] | | + + + + + | Robson Min | ECON | Unknown | | + + + + + | Isabella Whitehead | ECON | Unknown | | + + + + + Care Team Providers + +------+ + | Care Boatbuilder Apprentice Wood Name | Role | Phone | + +------+ + PCP | Unavailable | + +------+ + Encounter Details +--------+ + + + + | Date | Type | Department | Care Team | Description | +--------+ + + + + | 04/06/ | Hospital | [facility] | | | | 2000 | Encounter | [facility] | | | | | | CENTER [address] | | | | | | [place] | | | | | | [address] | | | | | | [phone] | | | +--------+ + + + [...] [place] | | | | | | [address] | | | | | | | | +--------+---------+ + + + | 07/26/ | Office | Pulmonology | [place], | | | 2019 | Visit | | MD Cely GORE | | | | | | [place] | | | | | | [id number] | | | | | | | | +--------+---------+ + + + documented as of this encounter Visit Diagnoses Not on filedocumented in this encounter"
--- OUTSIDE RECORDS SUMMARY | ~2019-05-03 | XMS | Encounter Summary ---
Demographics + + + | Address | [address] | | | [place] [address] | + + + | Home Phone | | + + + | Preferred Language | Unknown | + + + | Marital Status | Single | + + + | Holiness Affiliation | Unknown | + + + | Race | Unknown | + + + | Ethnic Group | Unknown | + + + Author + + + | Author | [facility] | | | and [place] | + + + | Organization | [facility] | | | [...] | | | | | [place] [address] | | + + + + + | Robson Min | ECON | Unknown | | + + + + + | Isabella Whitehead | ECON | Unknown | | + + + + + Care Team Providers + +------+ + | Care Waste Management Recycling Technician Name | Role | Phone | + +------+ + | Bart Ba DO | PCP | | + +------+ + Reason for Visit +--------+ + | Reason | Comments | +--------+ + | COPD | Yearly | +--------+ + Evaluate & Treat (Routine) +--------+--------+ + + + + | Status | Reason | Specialty | Diagnoses / | Referred By | Referred To | | | | | Procedures | Contact | Contact | +--------+--------+ + + + + | Closed | | Pulmonary | Diagnoses | Mejia, | Harjinder, | | | | Disease / | Chronic | Bart Bell DO | MD Navdeep | | | | Pulmonology | obstructive | [address] | [address] | | | | | pulmonary | [address] | [place], | | | | | disease, | [place] | [place] [address] | | | | | unspecified | [address] | Phone: | | | | | ([facility]) | [place] | [phone] | | | | | Procedures | [address] | Fax: | | | | | F/U | Phone: | [phone] | | | | | | [phone] | | +--------+--------+ + + + + Encounter Details +--------+---------+ + + + | Date | Type | Department | Care Team | Description | +--------+---------+ + + + | 05/23/ | Office | [facility] | Navdeep Grande, | COPD, mild (HCC) | | 2016 | Visit | PULMONARY [address] | MD [address] | (Primary Dx); | | | | [place], | [place], [place] | Alveolar | | | | [place] [address] | [address] | hypoventilation; | | | | [phone] | | Tobacco use disorder | +--------+---------+ + + + [...] to Quit: No; Counseling Given: No | + + + + +---------+ + [...] + + + | Blood Pressure | 126/60 | 05/23/2015 10:47 AM | | | | | PST | | + + + + + | Pulse | 76 | 05/23/2015 10:47 AM | | | | | PST | | + + + + + | Temperature | - | - | | + + + + + | Respiratory Rate | - | - | | + + + + + | Oxygen Saturation | 95% | 05/23/2015 10:47 AM | | | | | PST | | + + + + + | Inhaled Oxygen | - | - | | | Concentration | | | | + + + + + | Weight | 101.2 kg (223 lb) | 05/23/2015 10:47 AM | | | | | PST | | + + + + + | Height | 167.6 cm (5' 6") | 05/23/2015 10:47 AM | | | | | PST | | + + + + + | Body Mass Index | 35.99 | 05/23/2015 10:47 AM | | | | | PST | | + + + + + documented in this encounter Patient Instructions Patient Instructions Navdeep Grande MD - 05/23/2015 11:11 AM PST How to Quit Smoking Smoking is one of the hardest habits to break. About half of allpeople who have ever smok ed have been able to quit. Most peoplewho still smoke want to quit. Here are some of the b est ways to stop smoking. Keep trying It takes most smokers about eight tries before they can quit entirely. It s important not to give up. Go cold turkey Mostformer smokers quit cold turkey (all at once). Trying to cut back gradually doesn't s eem to work as well, perhaps because it continues the smoking habit. Also, it is possible to inhale more while smoking fewer cigarettes. This results in the same amount of nicotine in your body! Get support Support programs can be a big help, especially for heavy smokers. These groups offer lectur es, ways to change behavior, and peer support. Here are some ways to find a support program: Free national quitline: 317-RIRO-REV (634-046-3855). [facility] quit-smoking programs. [place] [employer]: (258.860.3192). [place] [employer] (783-870-0244). Support at home is important too. Nonsmokers can offer praise and encouragement. If the smo ker in your life finds it hard to quit, encourage them to keep trying! Zlxs-gcn-yxizhpa medicines Nicotine replacement therapymay make quittingeasier. Certain aids, such as the nicotine patch, gum, and lozenges, are available without a prescription. Itis best to use these un colten a doctor s care, though. The skin patch provides a steady supply of nicotine. Nicotine gum and lozenges givetemporary bursts of low levels of nicotine. Both methods reduce the craving for cigarettes. Warning: If youhave nausea, vomiting, dizziness, weakness, or a fa st heartbeat, stop using these products and see your doctor. Prescription medicines After reviewingyour smoking patterns and prior attempts to quit, your doctor may offer a prescription medicine such as bupropion, varenicline, a nicotine inhaler, or nasal spray. Ea ch has advantages and side effects. Your doctor can review these with you. Health benefits of quitting The benefits of quitting start right away and keep improving the longer you go without smok ing.These benefits occur at any age. So whether you are 17 or 70, quitting is a good dec ision. Some of the benefits include: 20 minutes: Blood pressure and pulse return to normal. 8 hours: Oxygen levels return to normal. 2 days: Ability to smell and taste begin to improve as damaged nerves regrow. 2 to 3 weeks: Circulation and lung function improve. 1 to 9 months: Coughing, congestion, and shortness of breath decrease; tiredness decreas es. 1 year: Risk of heart attack decreases by half. 5 years: Risk of lung cancer decreases by half; risk of stroke becomes the same as a non smoker s. For more on how to quit smoking, try these online resources: Smokefree.govhttp://smokefree.gov/ Clearing the Air booklet from the National Cancer Institutehttp://smokefree.gov/si richar/default/files/pdf/qfxbhfmn-jws-pxg-accessible.pdf 6040-[address] [place] [address]. All righ ts reserved. This information is not intended as a substitute for professional medical care. Always follow your healthcare professional's instructions. documented in this encounter Progress Notes Navdeep Grande MD - 05/23/2015 11:00 AM PSTFormatting of this note might be different f rom the original. Pulmonary Follow Up 05/23/2015 HPI Kait Min is a 44 y.o. female patient of Bart Ba, here today for follow up o f Gold Stage I COPD. The last pulmonary clinic visit was on 04/24/14. Since their last appointment they feel like their breathing issues have been stable except February 2015. Treat with prednisone and an unknown antibiotic. They have not had any other acute pulmonary illnesses. The patient has not required a predn isone taper since February. Likewise Kait Min has not required antibiotics for a COPD exacerbation since February. They are currently on a daily regimen of Eveline NEFFI for their COPD. They do feel like this medication regimen is controlling their symptoms. Currently she is using their short actin g inhaler, Ventolin, 1 times a month. Currently the patient is able to walk 1 hour at their own pace on level ground before devel oping dyspnea. They are exercising regularly. Their exercise consists of walking couple time s a week (one hour). They are not enrolled in cardiac/pulmonary rehabilitation. They have n ot completed pulmonary rehabilitation in the past. The patient does not cough chronically, and does not produce mucous. They have not had hemo ptysis since our last appointment. She has been evaluated for nocturnal oxygen. They currently are using nocturnal oxygen. Ever hair are currently on 1 LPM at night while sleeping. They have not reported recent symptoms of nasal congestion, runny nose or post nasal drip. The patient have received this year's influenza vaccination. They are up to date with thei r Pneumovax and Prevnar. Since her last clinic appointment Kait has decreased her tobacco from 2 packs a day to on e pack per day In the past the patient has noted the Chantix was not effective in helping he r decrease/stop tobacco. She is apparently "allergic" to the nicotine patch. Past Medical History Past Medical History Diagnosis Date Wrist pain Diabetes mellitus, type 2 ([facility]) Vitamin D deficiency Hypercholesterolemia Hypothyroidism Panic anxiety syndrome IBS (irritable bowel syndrome) Restless leg syndrome Urinary hesitancy Lumbago Nocturia Pyoderma gangreosum-LE Bipolar 1 disorder ([facility]) Hypertension Lymphedema Nausea and vomiting Reflux esophagitis GI bleeding Empyema lung ([facility]) 2005 right Knee pain CHRONIC TENSION HEADACHE [...] cit drugs. Allergies: Allergies Allergen Reactions Azithromycin Lamotrigine Medications: Current outpatient prescriptions: albuterol (VENTOLIN HFA) 90 mcg/puff inhaler, Inhale 2 puffs into the lungs every 4 ho urs as needed., Disp: , Rfl: azaTHIOprine (AZASAN) 75 MG TABS, Take 50 mg by mouth 4 times daily., Disp: , Rfl: keqbimeheg-wvauvkn-ohyabbew (BUTALBITAL COMPOUND/ASA) per tablet, One tablet by mouth every 6 hours as needed for migraine, Disp: , Rfl: dicyclomine (BENTYL) 10 mg capsule, Take 1 capsule by mouth every 6 hours as needed., Disp: 150 capsule, Rfl: 3 ergocalciferol (VITAMIN D-2) 50,000 units capsule, Take 50,000 Units by mouth Daily., Disp: , Rfl: fluticasone-salmeterol (ADVAIR HFA) 45-21 MCG/ACT inhaler, Inhale 2 puffs into the calvin gs 2 times daily., Disp: , Rfl: HYDROcodone-acetaminophen (NORCO) 7.5-325 mg per tablet, Take 10-325 mg by mouth every 4 hours., Disp: , Rfl: insulin glargine (LANTUS) 100 units/mL injection, Inject 20 Units under the skin night ly., Disp: , Rfl: Insulin Lispro, Human, (HUMALOG KWIKPEN SC), Inject under the skin., Disp: , Rfl: levothyroxine (SYNTHROID, LEVOTHROID) 300 MCG tablet, Take 300 mcg by mouth Daily., Di sp: , Rfl: LORazepam (ATIVAN) 0.5 mg tablet, One to two tablets by mouth at bedtime, Disp: , Rfl: metFORMIN (GLUCOPHAGE) 500 mg tablet, Take two tablets by mouth every a.m. and three t ablets every p.m., Disp: , Rfl: metoprolol tartrate (LOPRESSOR) 25 mg tablet, Take 25 mg by mouth Daily., Disp: , Rfl: omeprazole (PRILOSEC) 20 mg capsule, Take 1 capsule by mouth every morning (before jermaine akfast)., Disp: 90 capsule, Rfl: 3 promethazine (PHENERGAN) 25 mg tablet, Take 25 mg by mouth 3 times daily as needed., D isp: , Rfl: simvastatin (ZOCOR) 20 mg tablet, Take 20 mg by mouth Daily., Disp: , Rfl: SUMAtriptan (IMITREX) 100 mg tablet, 1/2-1 tablet by mouth daily as needed migraine, D isp: , Rfl: traZODone (DESYREL) 100 mg tablet, Take 100 mg by mouth nightly., Disp: , Rfl: venlafaxine (EFFEXOR) 75 MG tablet, Take 75 mg by mouth 2 times daily., Disp: , Rfl: VERAPAMIL HCL PO, Take 120 mg by mouth 2 times daily., Disp: , Rfl: ziprasidone (GEODON) 60 MG capsule, Take 80 mg by mouth Daily., Disp: , Rfl: Immunizations: Immunization History Administered Date(s) Administered INFLUENZA, QUADRIVALENT PRESERVATIVE FREE (PED/ADOL/ADULT) 02/15/2015 INFLUENZA, TRIVALENT PRESERVATIVE FREE (PED/ADOL/ADULT) 02/03/2012, 02/17/2013, 014 PNEUMOCOCCAL CONJUGATE 13-VALENT (PCV13) 04/24/2014 PNEUMOCOCCAL POLYSACCHARIDE 23-VALENT (PPSV23) 04/04/2009, 03/19/2013 Review of Systems Constitutional: Denies [...] Denies urticaria and allergic rash. Objective BP 126/60 mmHg | Pulse 76 | Ht 1.676 m (5' 6") | Wt 101.152 kg (223 lb) | BMI 36.01 kg/m2 | SpO2 95% | ? No Appearance: Alert, cooperative, no distress, appears stated [...] normal. No murmur, rubs or gallops. Extremities: Extremities normal/atraumatic. No cyanosis, clubbing. trace edema to the low er calf bilaterally . Skin: Warm and dry. Lymph nodes: No significant cervical and supraclavicular nodes. Neurologic: Gait normal. No apparent weakness. Data: None. Assessment 1. COPD Gold stage I. Currently treated with Advair MDI and as needed Ventolin. Unfort unately Kait continues to use tobacco (one pack per day). The patient has had her seasona l influenza vaccination and is up-to-date with her Pneumovax. Over last year it sounds as if she has had one COPD exacerbation/bronchitis which was treat ed with antibiotics and prednisone. Today Ms. Min was counseled regarding smoking cessation. She appears interested in decre asing/quitting tobacco. 2. Alveolar hypoventilation manifesting with nocturnal hypoxemia. The patient wishes to determine if she still requires supplemental oxygen at night while sleeping. Plan 1. Nocturnal oximetry on room air. 2. Seasonal influenza vaccination January 2016. 3. Smoking cessation literature provided. 4. Pulmonary clinic follow-up appointment in 12 months time. CC: Bart Ba DO documented in this encounter Plan of [...] [place] | | | | | | [address] | | | | | | | | +--------+---------+ + + + | 07/26/ | Office | Pulmonology | Navdeep Grande, | | | 2019 | Visit | | MD [address] | | | | | | [place] | | | | | | [address] | | | | | | | | +--------+---------+ + + + + + +--------+ + + | Name | Type | Priori | Associated Diagnoses | Order Schedule | | | | ty | | | + + +--------+ + + | Overnight oximetry, | Respiratory | Routin | Alveolar | Expected: | | room air | Care | e | hypoventilation | 05/23/2015, Expires: | | | | | | 05/22/2016 | + + +--------+ + + documented as of this encounter Visit Diagnoses + + | Diagnosis | + + | COPD, mild (HCC) - Primary Chronic airway obstruction, not elsewhere classified | + + | Alveolar hypoventilation Other dyspnea and respiratory abnormality | + + | Tobacco use disorder | + + documented in this encounter
--- OUTSIDE RECORDS SUMMARY | ~2019-05-03 | XMS | Encounter Summary ---
Demographics + + + | Address | [address] | | | [place] [address] | + + + | Home Phone [...] Author + + + | Author | [facility] | + + + | Organization | [facility] | + + + | Address | Unknown | + + + | Phone | Unavailable | + + + Support + + + + + | Name | Relationship | Address | Phone | + + + + + | Scot Johnson | ECON | [address] | | | | | [place] [address] | | + + + + + Care Team Providers + +------+ + | Care Customer Liaison Name | Role | Phone | + +------+ + | Bart Ba DO | PCP | | + +------+ + Encounter Details +--------+ + + + + | Date | Type | Department | Care Team | Description | +--------+ + + + + | 12/12/ | Telephone | Dermatology | Azucena Jacobson MD | | | 2007 | | Medical at [facility] | [address] | | | | | Floor [address] [facility] | | | | | Cyndi Mailcode: CH16D | [place] [address] | | | | | [facility] | [phone] | | | | | and Healing, | | | | | | | | | | | | Floor [place], [place] | | | | | | [address] | | | | | | [phone] | | | +--------+ + + + [...]
--- OUTSIDE RECORDS SUMMARY | ~2019-05-03 | XMS | Encounter Summary ---
Demographics + + + | Address | [address] | | | [place] [address] | + + + | Home Phone | | + + + | Preferred Language | Unknown | + + + | Marital Status | Single | + + + | Denominational Affiliation | Unknown | + + + | Race | Unknown | + + + | Ethnic Group | Unknown | + + + Author + + + | Author | [facility] | | | and [place] | + + + | Organization | [facility] | | [...] | | | | | [place] [address] | | + + + + + | Robson Min | ECON | Unknown | | + + + + + | Isabella Whitehead | ECON | Unknown | | + + + + + Care Team Providers + +------+ + | Care Stucco Laborer Name | Role | Phone | + +------+ + | Bart Ba DO | PCP | | + +------+ + Encounter Details +--------+ + + + + | Date | Type | Department | Care Team | Description | +--------+ + + + + | 08/20/ | Imaging | [facility] | Provider, | | | 2018 | Exam | [facility] | MD Gali Silva | | | | | IMAGING | [address] | | | | | [phone] | [place] [address] | | +--------+ + + + + [...] [place] | | | | | | [address] | | | | | | | | +--------+---------+ + + + | 07/26/ | Office | Pulmonology | Navdeep Grande, | | | 2019 | Visit | | [address] | | | | | | [place] | | | | | | [address] | | | | | | | [...]
--- OUTSIDE RECORDS SUMMARY | ~2019-05-03 | XMS | Encounter Summary ---
Demographics + + + | Address | [address] | | | [place] [address] | + + + | Home Phone | | + + + | Preferred Language | Unknown | + + + | Marital Status | Single | + + + | Shinto Affiliation | Unknown | + + + | Race | Unknown | + + + | Ethnic Group | Unknown | + + + Author + + + | Author | [facility] | | | and [place] | + + + | Organization | [facility] | | | [...] | | | | | [place] [address] | | + + + + + | Robson Min | ECON | Unknown | | + + + + + | Isabella Whitehead | ECON | Unknown | | + + + + + Care Team Providers + +------+ + | Care Prospecting Driller Helper Name | Role | Phone | [...] | | | | | | | [facility] [place] | [place], [place] | | | | | | [address] | [address] | | | | | | Phone: | Phone: | | | | | | [phone] | [phone] | | | | | | Fax: | Fax: | | | | | | [phone] | [phone] | +--------+--------+ + + + + Encounter Details +--------+ + + + + | Date | Type | Department | Care Team | Description | +--------+ + + + + | 01/19/ | Procedure | [facility] | Laine Batista DO | Dizziness; | | 2018 | visit | CARDIOLOGY EUGENIA | [address] | Heart palpitations | | | | [address] | [place], [place] | | | | | [address] [place] [address] | [address] | | | | | [place] | | | | | | [address] | | | | | | [phone] | | | +--------+ + + + [...] of this encounter Progress Notes Beth Tamayo, Sweetbread Trimmer - 01/19/2019 3:30 PM PDT2 week cardiac event monitor placed on patient. EOB/Billing information discussed. Instructions given and understood. P atient instructed to call registracija vozila for any billing or monitor questions. JDW:FIELD ARTILLERY TARGETING TECHNICIAN-AAMA. [facility] umented in this encounter Plan of Treatment [...] [place] | | | | | | [address] | | | | | | | | +--------+---------+ + + + | 07/26/ | Office | Pulmonology | Navdeep Grande, | | | 2019 | Visit | | MD [address] | | | | | | [place] | | | | | | [address] | | | | | | | | +--------+---------+ + + + documented as of this encounter Visit Diagnoses + + | Diagnosis | + + | Dizziness Dizziness and giddiness | + + | Heart palpitations Palpitations | + + documented in this encounter"
--- OUTSIDE RECORDS SUMMARY | ~2019-05-03 | XMS | Encounter Summary ---
Demographics + + + | Address | [address] | | | [place] [address] | + + + | Home Phone | | + + + | Preferred Language | Unknown | + + + | Marital Status | Single | + + + | Nondenominational Affiliation | Unknown | + + + | Race | Unknown | + + + | Ethnic Group | Unknown | + + + Author + + + | Author | [facility] | | | and [place] | + + + | Organization | [facility] | | | [...] | | | | | [place] [address] | | + + + + + | Robson Min | ECON | Unknown | | + + + + + | Isabella Whitehead | ECON | Unknown | | + + + + + Care Team Providers + +------+ + | Care Principal Product Manager Name | Role | Phone | + +------+ + | Ora Slater | PCP | | + +------+ + Encounter Details +--------+ + + + + | Date | Type | Department | Care Team | Description | +--------+ + + + + | 09/08/ | Documentati | [facility] | Neno Walker | | | 2018 | on | SLEEP DISORDER [address] | MD Srinivas [address] | | | | | [address] | [address] [place] | | | | | [place] [address] | [place] [address] | | | | | [phone] | [phone] | | | | | | | [...] [place] | | | | | | [address] | | | | | | | | +--------+---------+ + + + | 07/26/ | Office | Pulmonology | Navdeep Grande, | | | 2019 | Visit | | MD [address] | | | | | | [place] | | | | | | [address] | | | | | | | | +--------+---------+ + + + documented as of this encounter Visit Diagnoses + + | Diagnosis | + + | Hypoventilation - Primary Other dyspnea and respiratory abnormality | + + documented in this encounter"
--- OUTSIDE RECORDS SUMMARY | ~2019-05-03 | XMS | Encounter Summary ---
Demographics + + + | Address | [address] | | | [place] [address] | + + + | Home Phone [...] | | | | | [place] [address] | | + + + + + | Robson Min | ECON | Unknown | | + + + + + | Isabella Whitehead | ECON | Unknown | | + + + + + Care Team Providers + +------+ + | Care Finished Goods Stock Clerk Name | Role | Phone | + [...] [address] | | | | | [phone] | [place] [address] | | +--------+ + + + + [...] [place] | | | | | | [address] | | | | | | | | +--------+---------+ + + + | 07/26/ | Office | Pulmonology | Navdeep Grande, | | | 2019 | Visit | | [address] | | | | | | [place] | | | | | | [id number] | | | | | | | [...]
--- OUTSIDE RECORDS SUMMARY | ~2019-05-03 | XMS | Encounter Summary ---
Demographics + + + | Address | [address] | | | [place] [address] | + + + | Home Phone | | + + + | Preferred Language | Unknown | + + + | Marital Status | Single | + + + | Gnosticist Affiliation | Unknown | + + + | Race | Unknown | + + + | Ethnic Group | Unknown | + + + Author + + + | Author | [facility] | | | and [place] | + + + | Organization | [facility] | | | [...] | | | | | [place] [address] | | + + + + + | Robson Min | ECON | Unknown | | + + + + + | Isabella Whitehead | ECON | Unknown | | + + + + + Care Team Providers + +------+ + | Care Production Machine Computer Operator Name | Role | Phone | [...] + + | 09/21/ | Telephone | [facility] | Cecilio Amato MD | Other | | 2013 | | GASTROENTEROLOGY | [address] | (gastroparesis) | | | | [address] [facility] | [place], [place] | | | | | [address] [place], [place] | [address] | | | | | [address] | [phone] | | | | | [phone] | | | +--------+ + + + [...] [place] | | | | | | [id number] | | | | | | | | +--------+---------+ + + + | 07/26/ | Office | Pulmonology | Navdeep Grande, | | | 2019 | Visit | | MD [address]ely [address]ORE | | | | | | [place] | | | | | | [address] | | | | | | | | +--------+---------+ + + + documented as of this encounter Visit Diagnoses Not on filedocumented in this encounter"
--- OUTSIDE RECORDS SUMMARY | ~2019-05-03 | XMS | Encounter Summary ---
Demographics + + + | Address | [address] | | | [place] [address] | + + + | Home Phone | | + + + | Preferred Language | Unknown | + + + | Marital Status | Single | + + + | Anabaptist Affiliation | CHR | + + + [...] [address] | | | | | [place] [address] | | + + + + + Care Team Providers + +------+ + | Care Paste Up Copy Camera Operator Name | Role | Phone | [...] as of this encounter Discharge Summaries Interface, Product Merchandiser In - 10/10/2005 1:[address] [address] [facility] MEDICAL SUMMARY OF HOSPITALIZATION Med Rec [...] transferred from an outside hospital on the [facility]. She initially presented to the emergency department [...] 3. Synthroid 300 mcg p.o. everyday. 4. Rwwoe-Vbn-Mdzfjr one tablet p.o. everyday. 5. Vioxx 25 [...] AR:y00 FAX: BART ELMORE MD OFFICE NUMBER [phone] signed by Interface, Product Merchandiser In at 10/10/2005 1:11 AM PDTdoc umented in this encounter Plan of Treatment Not on filedocumented as of this encounter Visit Diagnoses Not on filedocumented in this encounter"
--- OUTSIDE RECORDS SUMMARY | ~2019-05-03 | XMS | Encounter Summary ---
Demographics + + + | Address | [address] | | | [place] [address] | + + + | Home Phone [...] | | | | | [place] [address] | | + + + + + Care Team Providers + +------+ + | Care Parish Visitor Name | Role | Phone | + +------+ + PCP | Unavailable | + +------+ + Encounter Details +--------+ + + + + | Date | Type | Department | Care Team | Description | +--------+ + + + + | 10/29/ | Respiratory | | Other, Faculty | | | 2006 | Therapy | | [phone] | | +--------+ + + + + [...] | | | | | | Margi, MILLER SUPERVISOR | | | | + + [...] [facility] | [address] | [place] | | | DIAGNOSTICS - | [place] | [address] | | | PULMONARY FUNCTION | | | | + + + + + documented in this encounter Visit Diagnoses Not on filedocumented in this encounter"
--- OUTSIDE RECORDS SUMMARY | ~2019-05-03 | XMS | Encounter Summary ---
Demographics + + + | Address | [address] | | | [place] [address] | + + + | Home Phone [...] | | | | | [place] [address] | | + + + + + | Robson Min | ECON | Unknown | | + + + + + | Isabella Whitehead | ECON | Unknown | | + + + + + Care Team Providers + +------+ + | Care Gun Perforator Loader Name | Role | Phone | + [...] Medicine | JESUSITA | Neno Thong | [place] [address] [address] | | | Required | | (obstructive | MD [address] [facility] | | | | | sleep | [facility] | [place], | | | | | apnea) | [facility] | [place] [address] | | | | | Nocturnal | [place], [place] | Phone: | | | | | oxygen | [address] | [phone] | | | | | desaturation | Phone: | Fax: | | | | | E66.2 | [phone] | [phone] | | | | | (ICD-10-CM) | Fax: | | | | | | - 278.03 | [phone] | | | | | | (ICD-9-CM) [...] | | | | | | | [place] POLYSOM | | | | | | [...] + + | 09/21/ | Hospital | [facility] | Neno Walker | JESUSITA (obstructive | | 2019 - | Encounter | MED CTR SLEEP | Jr., MD [address] | sleep apnea); | | | | CENTER [address] | [address] [place] | Obesity | | 09/22/ | | [place], [place] | [place] [address] | hypoventilation | | 2019 | | [address] | [phone] | syndrome (HCC); | | | | [phone] | | Nocturnal oxygen | | | [...] +---------+ + + | azaTHIOprine | Take 50-100 tablets | | 0 | 11/19/19 | | | (IMURAN) 50 mg | by mouth (see | | | 18 | | | tablet | instruction). Take | | | | | | | 50 mg in the morning | | | | | | | and 100 mg nightly | | | | | + + [...] + + +---------+ + + | LANTUS MABLEOSTAR | Inject 10 Units | | 0 | 05/25/19 | [...] +---------+ + + | pregabalin | Take 150-300 mg by | | 0 | | | | (LYRICA) 150 MG | mouth (see | | | | | | capsule | instruction). Take | | | | | | | 150 mg in the | | | | | | | morning and 300 mg | | | | | | | in the evening | | | | | + + [...] | | | (ZANAFLEX) 4 mg | nightly as needed. | | | | | | tablet | | | | | | + + + +---------+ + + | torsemide | Take 20 mg by mouth | | 0 | 12/08/19 | | | (DEMADEX) 20 mg | Daily. | | | 18 | | [...] times | Inhaler | | 19 | 9 | | ol (ADVAIR HFA) | daily. [...] MG | nightly. | | | | 0 | | capsule | | | | [...] [place] | | | | | | [address] | | | | | | | | +--------+---------+ + + + | 07/26/ | Office | Pulmonology | Navdeep Grande, | | | 2019 | Visit | | [address] | | | | | | [place] | | | | | | [address] | | | | | | | [...] | Aaron Espino MD 09/30/2018 10:49 [facility] | | | [place] [address] | | | Polysomnogram Report on Kait [...] | | | Neno Walker Jr., MD, [facility] DirectorMelly Doll | | | [facility] | | | [place] CooleyClinical Retort Feeder [facility] | | | [place], [place] | | |The kimmy oxygen saturation [...] | | |Neno Walker Jr., MD, [facility] | | |Rehabilitation Aide | | |[facility] | | |[facility] | | |[place], [place] | | |Clinical manager nursing | | |[facility] | | |[place], [place] | | + + + + + | Procedure Note | + + | Neno Walker Jr., MD - 09/30/2018 10:38 AM PDT [facility] | | Disorders [place], [place] [id number] Report on | | Kait Min performed [...] | | COPD.Neno Walker Jr., MD, FAASMMedical DirectorArkansas Surgical Hospital Sleep | | Disorders CenterProSeney, WAClinical Associate | | Professor of MedicineKings[place], [place] | |Rehabilitation Aide | |[facility] | |[facility] | |[place], [place] | |Clinical manager nursing | |[facility] | |[place], [place] | + + POC Blood Gases (09/22/2018 12:51 AM PDT) + + + + + + | Component | Value | Ref Range | Performed | Pathologist | | | | | At | Signature | + + + + + + | Specimen | Artery | | [facility] | | | Source | | | [...] [facility] | | | | | | [facility] | | | | | | [...] | + + + + + | [facility] | [address] | [place] | [phone] | | [facility] | | [address] | | | - LABORATORY | | [...]
--- OUTSIDE RECORDS SUMMARY | ~2019-05-03 | XMS | Encounter Summary ---
Demographics + + + | Address | [address] | | | [place] [address] | + + + | Home Phone | | + + + | Preferred Language | Unknown | + + + | Marital Status | Single | + + + | Adventism Affiliation | Unknown | + + + | Race | Unknown | + + + | Ethnic Group | Unknown | + + + Author + + + | Author | [facility] | | | and [place] | + + + | Organization | [facility] | | | and [...] | | | | | [place] [address] | | + + + + + | Robson Min | ECON | Unknown | | + + + + + | Isabella Whitehead | ECON | Unknown | | + + + + + Care Team Providers + +------+ + | Care Status Controller Name | Role | Phone | + +------+ + | Bart Ba DO | PCP | | + +------+ + Encounter Details +--------+ + + + + | Date | Type | Department | Care Team | Description | +--------+ + + + + | 11/19/ | Hospital | [facility] | Navdeep Grande, | COPD, mild (HCC) | | 2018 | Encounter | MED CTR PULMONARY | MD [address] | | | | | FUNCTION [address] | [place], [place] | | | | | [place], | [address] | | | | | [place] [address] | | | | | | [phone] | | | +--------+ + + + [...] + + | LANTUS SOLOSTAR | Inject 10 Units [...] puffs into | 1 | 3 | 10/20/19 | | | HFA) 90 mcg/puff | the lungs every 4 | Inhaler | | 18 | 9 | | inhaler | hours as needed for | | | | | | | Shortness of Breath. | | | | | + + + +---------+ + + | aspirin 81 MG | Take 81 mg by mouth | | 0 | | | | tablet | Daily. | | | | 9 | + + + +---------+ + + | azaTHIOprine | Take 75 mg by mouth | | 0 | 09/22/19 | | | (AZASAN) 75 MG TABS | 2 times daily. | | | 12 | 8 | + + + +---------+ + + | busPIRone (BUSPAR) | Take 5 mg by mouth 2 | | 0 | | | | 5 mg tablet | times daily. | | | | 9 | + + + +---------+ + + | cloNIDine | Place 1 patch onto | | 0 | 09/12/19 | | | (CATAPRES) 0.2 mg/24 | the skin Once a | | | 15 | 9 | | hr patch | week. | | | | | + + + +---------+ + + | cloNIDine | Place 1 patch onto | | 0 | 05/08/19 | | | (CATAPRES) 0.3 mg/24 | the skin Once a | | | 17 | 8 | | hr | week. | | | | | + + + +---------+ + + | ergocalciferol | Take 50,000 Units by | | 0 | | | | (VITAMIN D-2) 50,000 | mouth Once a week. | | | | 9 | | units capsule | | | | | | + + + +---------+ + + | | Inhale 1 puff into | 1 each | 11 | 10/19/19 | | | fluticasone-salmeter | the lungs Twice | | | 18 | 9 | | ol (ADVAIR DISKUS) | Daily. | | | | | | 250-50 mcg/puff | | | | | | | diskus | | | | | | | inhalerIndications: | | | | | | | COPD, mild (HCC) | | | | | | [...] 100 mcg by | | 0 | 05/04/19 | | | (SYNTHROID, | mouth Daily. Take | | | 17 | 8 | | LEVOTHROID) 50 mcg | one tablet daily | | | | | | tablet | | | | | | + + + +---------+ + + | LINZESS 290 MCG | Take 290 mcg by | | 0 | 05/19/19 | | | capsule | mouth as needed. | | | 17 | 9 | | | Take one capsule | | | | | | | daily | | | | | + + + +---------+ + + | LORazepam (ATIVAN) | Take 0.5 mg by mouth | | 0 | | | | 0.5 mg tablet | Daily. | | | | 8 | + + + +---------+ + + | LYRICA 75 MG | Take one capsule | | 0 | 05/04/19 | | | capsule | three times daily | | | 17 | 9 | + + + +---------+ + + | omeprazole | Take 1 capsule by | 90 | 3 | 09/21/19 | | | (PRILOSEC) 20 mg | mouth every morning | capsule | | 14 | 9 | | capsule | (before breakfast). | | | | | + + + +---------+ + + | ondansetron | Take 1 tablet by | | 0 | 10/24/19 | | | (ZOFRAN ODT) 4 mg | mouth as needed. | | | 18 | 9 | | disintegrating | | | | | | | tablet | | | | | | + + + +---------+ + + | promethazine | Take 25 mg by mouth | | 0 | | | | (PHENERGAN) 25 mg | 3 times daily as | | | | 9 | | tablet | needed. | | | | | + + + +---------+ + + | simvastatin | Take 20 mg by mouth | | 0 | | | | (ZOCOR) 20 mg tablet | nightly. | | | | 9 | + [...] | | 0 | | | | (EFFEXOR) 75 MG | Daily. | | | | 8 | | tablet | | | | [...] [place] | | | | | | [address] | | | | | | | | +--------+---------+ + + + | 07/26/ | Office | Pulmonology | Navdeep Grande, | | | 2019 | Visit | | MD Cely GORE | | | | | | [place] | | | | | | [address] | | | | | | | | +--------+---------+ + + + documented as of this encounter Procedures + +--------+ + + + | Procedure Name | Priori | Date/Time | Associated Diagnosis | Comments | | | ty | | | | + +--------+ + + + | PFT PULMONARY | LARS | 11/19/2017 | COPD, mild (HCC) | Results for this | | FUNCTION TESTING | | 12:24 PM | | procedure are in the | | ORDERS | | PDT | | results section. | + +--------+ + + + | PFT PULMONARY | LARS | 11/19/2017 | COPD, mild (HCC) | Results for this | | FUNCTION TESTING | | 12:24 PM | | procedure are in the | | ORDERS | | PDT | | results section. | + +--------+ + + + | PFT PULMONARY | LARS | 11/19/2017 | COPD, mild (HCC) | Results for this | | FUNCTION TESTING | | 12:24 PM | | procedure are in the | | ORDERS | | PDT | | results section. | + +--------+ + + + | PFT PULMONARY | LARS | 11/19/2017 | COPD, mild (HCC) | Results for this | | FUNCTION TESTING | | 12:24 PM | | procedure are in the | | ORDERS | | PDT | | results section. | + +--------+ + + + documented in this encounter Results Pulmonary function test full [...] | signed by: Navdeep Grande MD 11/19/2017 12:24[facility] | [facility] | | |physiology. Lung volume testing is [...] Navdeep Grande MD 11/19/2017 12:24 | | [facility] | | + + + documented in this encounter Visit Diagnoses + + | Diagnosis | + + | COPD, mild (HCC) Chronic airway obstruction, not elsewhere classified | + + documented in this encounter"
--- OUTSIDE RECORDS SUMMARY | ~2019-05-03 | XMS | Encounter Summary ---
Demographics + + + | Address | [address] | | | [place] [address] | + + + | Home Phone | | + + + | Preferred Language | Unknown | + + + | Marital Status | Single | + + + | Pentecostal Affiliation | CHR | + + + [...] | | | | | [place] [address] | | + + + + + Care Team Providers + +------+ + | Care Irrigationist Designer Name | Role | Phone | + +------+ + PCP | Unavailable | + +------+ + Encounter Details +--------+ + + + + | Date | Type | Department | Care Team | Description | +--------+ + + + + | 10/29/ | Respiratory | | Other, Faculty | | | 2006 | Therapy | | [phone] | | +--------+ + + + + [...] Ambrosio, | | | | | | OUTREACH ANALYST | | | | + + + [...] [facility] | [address] | [place], [place] | | | DIAGNOSTICS - | [address] | [address] | | | PULMONARY FUNCTION | | | | + + + + + documented in this encounter Visit Diagnoses Not on filedocumented in this encounter"
--- OUTSIDE RECORDS SUMMARY | ~2019-05-03 | XMS | Encounter Summary ---
Demographics + + + | Address | [address] | | | [place] [address] | + + + | Home Phone | | + + + | Preferred Language | Unknown | + + + | Marital Status | Single | + + + | Zoroastrian Affiliation | CHR | + + + | Race | White | + + + | Ethnic Group | Not or | + + + Author + + + | Author | [facility] | + + + | Organization | [facility] | + + + | Address | Unknown | + + + | Phone | Unavailable | + + + Support + + + + + | Name | Relationship | Address | Phone | + + + + + | Scot Johnson | ECON | [address] | | | | | [place] [address] | | + + + + + Care Team Providers + +------+ + | Care Trip Motor Operator Name | Role | Phone | [...] as of this encounter Progress Notes Interface, Custom Feed Mill Operator In - 02/18/2006 3:06 AM PSTCLINIC DATE: 06/10/2000 RHEUMATOLOGY CLINIC HISTORY OF PRESENT ILLNESS: Ms. Kait Min is a 30-year-old female with a diagnosis of rheumatoid arthritis. She has been followed in the Rheumatology Clinic at [facility] by Dr. Ameya Steen in the past. [...] Enbrel by her primary care doctor in [place] with the guidance of Dr. Steen. She [...] her fingers bilaterally. She has slightly reduced display department manager strength bilaterally but full range of motion to display department manager bilaterally. She has bilateral synovial cysts on [...] address. Dorene Waite M.D. Deyvi Lainez M.D. [facility] / [place] [id number] / [id number] / [id number] / [id number] signed by Interface, Custom Feed Mill Operator In at 02/18/2006 3:06 AM PSTdocume nted in this encounter Plan of Treatment Not on filedocumented as of this encounter Visit Diagnoses Not on filedocumented in this encounter"
--- OUTSIDE RECORDS SUMMARY | ~2019-05-03 | XMS | Encounter Summary ---
Demographics + + + | Address | [address] | | | [place] [address] | + + + | Home Phone | | + + + | Preferred Language | Unknown | + + + | Marital Status | Single | + + + | Yazidi Affiliation | CHR | + + + [...] | | | | | [place] [address] | | + + + + + Care Team Providers + +------+ + | Care Fixed Capital Clerk Name | Role | Phone | + +------+ + PCP | Unavailable | + +------+ + Encounter Details +--------+ + + + + | Date | Type | Department | Care Team | Description | +--------+ + + + + | 10/28/ | Respiratory | | Other, Faculty | | | 2006 | Therapy | | [phone] | | +--------+ + + + + [...] | ADULT AND SHRINERS | Routin | 10/28/2005 | | Results for this | | TREATMENTS | e | 8:00 AM | | procedure are in the | | | | PDT | | results section. | + +--------+ + + + documented in this encounter Results ADULT AND SHRINERS TREATMENTS (10/28/2005 8:00 AM PDT) + + + + + [...] | | | | AT THIS TIME. NASAL | | | | | | CANNULA AT [address] Lio | | | | | | [...] [facility] | [address] | [place], [place] | | | DIAGNOSTICS - | [address] | [address] | | | PULMONARY FUNCTION | | | | + + + + + documented in this encounter Visit Diagnoses Not on filedocumented in this encounter"
--- OUTSIDE RECORDS SUMMARY | ~2019-05-03 | XMS | Encounter Summary ---
Demographics + + + | Address | [address] | | | [place] [address] | + + + | Home Phone [...] | | | | | [place] [address] | | + + + + + | Robson Min | ECON | Unknown | | + + + + + | Isabella Whitehead | ECON | Unknown | | + + + + + Care Team Providers + +------+ + | Care Pipe Line Repairer Name | Role | Phone | + [...] Zhou PEARSON | | | | | [phone] | [place] [address] | | +--------+ + + + + [...] | | | | | | [place] | | | | | | [address] | | | | | | | | +--------+---------+ + + + | 07/26/ | Office | Pulmonology | Navdeep Grande, | | | 2019 | Visit | | [address] | | | | | | [place] | | | | | | [id number] | | | | | | | | +--------+---------+ + + + documented as of this encounter Procedures + +--------+ + + + | Procedure Name | Priori | Date/Time | Associated Diagnosis | Comments | | | ty | | | | + +--------+ + + + | XR CHEST AP PORTABLE | Routin | 08/08/2017 | | Results for this | | | e | 10:55 AM | | procedure are in the | | | | PDT | | results section. | + +--------+ + + + documented in this encounter Results XR Chest AP Portable (08/08/2017 10:55 AM PDT) + + | Specimen | [...]
--- OUTSIDE RECORDS SUMMARY | ~2019-05-03 | XMS | Encounter Summary ---
Demographics + + + | Address | [address] | | | [place] [address] | + + + | Home Phone | | + + + | Preferred Language | Unknown | + + + | Marital Status | Single | + + + | Muslim Affiliation | Unknown | + + + | Race | Unknown | + + + | Ethnic Group | Unknown | + + + Author + + + | Author | [facility] | | | and [place] | + + + | Organization | [facility] | | | [...] | | | | | [place] [address] | | + + + + + | Robson Min | ECON | Unknown | | + + + + + | Isabella Whitehead | ECON | Unknown | | + + + + + Care Team Providers + +------+ + | Care Manager Payer Name | Role | Phone | + +------+ + | Ora Slater | PCP | | + +------+ + Reason for Visit +--------+ + | Reason | Comments | +--------+ + | COPD | 6 wk follow up per PT | +--------+ + Evaluate & Treat (Routine) [...] | | | | | disease, | [place], | [place] [address] | | | | | unspecified | [place] | Phone: | | | | | ([facility]) | [address] | [phone] | | | | | Obstructive | Phone: | Fax: | | | | | sleep apnea | [phone] | [phone] | | | | | (adult) | Fax: | | | | | | (pediatric) | [phone] | | | | | | Procedures | | | | | | | F/U APPT | | | | | | | DARRICK | | | | | | | HARJINDER | | | | | | | 07/18/18 | | | +--------+--------+ + + + + Encounter Details +--------+---------+ + + + | Date | Type | Department | Care Team | Description | +--------+---------+ + + + | 08/26/ | Office | [facility] [place] | Navdeep Grande, | COPD, mild (HCC) | | 2019 | Visit | PULMONARY [address] | MD [address] | (Primary Dx); | | | | [place], | [place], [place] | Alveolar | | | | [place] [address] | [id number] | hypoventilation; JESUSITA | | | | [phone] | | and COPD overlap | | [...] + + + | Blood Pressure | 158/98 | 08/26/2018 10:32 AM | | | | | PDT | | + + + + + | Pulse | 92 | 08/26/2018 10:32 AM | | | | | PDT | | + + + + + | Temperature | - | - | | + + + + + | Respiratory Rate | - | - | | + + + + + | Oxygen Saturation | 95% | 08/26/2018 10:32 AM | 1L Pulse | | | | PDT | | + + + + + | Inhaled Oxygen | - | - | | | Concentration | | | | + + + + + | Weight | 104.4 kg (230 lb 2.6 | 08/26/2018 10:32 AM | | | | oz) | PDT | | + + + + + | Height | 170.2 cm (5' 7") | 08/26/2018 10:32 AM | | | | | PDT | | + + + + + | Body Mass Index | 36.05 | 08/26/2018 10:32 AM | | | | | PDT | | + + + + + documented in this encounter Patient Instructions Patient Instructions Navdeep Grande MD - 08/26/2018 10:30 AM PDT How to Quit Smoking Smoking is one of the hardest habits to break. About half of allpeople who have ever smok ed have been able to quit. Most peoplewho still smoke want to quit. Here are some of the b est ways to stop smoking. Keep trying Most smokers make many attempts at quitting before they are successful. It s important no t to give up. Go cold turkey Mostformer smokers quit cold turkey (all at once). Trying to cut back gradually doesn't s eem to work as well, perhaps because it continues the smoking habit. Also, it is possible to inhale more while smoking fewer cigarettes. This results in the same amount of nicotine in your body. Get support Support programs can be a big help, especially for heavy smokers. These groups offer lectur es, ways to change behavior, and peer support. Here are some ways to find a support program: Free national quitline: 541-SUFD-FSJ (883-003-4265). Hospital quit-smoking programs. [place] [employer]: (206.922.6892). [employer] (252-839-1019). Support at home is important too. Nonsmokers can offer praise and encouragement. If the smo ker in your life finds it hard to quit, encourage them to keep trying. Gkbo-pud-nbeqvjg medicines Nicotine replacement therapymay make quittingeasier. Certain [...] Prescription medicines After reviewingyour smoking patterns and past attempts to quit, your doctor may offer a p rescription medicine such as bupropion, varenicline, a nicotine inhaler, or nasal spray. Eac h has advantages and side effects. Your doctor [...] to quit smoking, try these online resources: Smokefree.gov "Clearing the Air" booklet from the National Cancer [place]: smokefree.gov/sites/defau lt/files/pdf/xtchoaic-efx-fhl-accessible.pdf Date Last Reviewed: 06/17/201619991756-6414 [employer]. [address] [place] [address], [place] [address]. All righ ts reserved. This information is not intended as a substitute for professional medical care. Always follow your healthcare professional's instructions. documented in this encounter Progress Notes Navdeep Grande MD - 08/26/2018 10:30 AM PDTFormatting of this note might be different f rom the original. Pulmonary Follow Up 08/26/2018 HPI Kait Min is a 48 y.o. female patient of TIMOTHY Singleton here today for follow u p of COPD, alveolar hypoventilation and recurrent pneumonia impacted by the patient's immuno compromise condition. The last pulmonary clinic visit was on 04/22/2018. Since their last appointment they feel lik e their breathing issues have been fluctuating significantly. At the time of the patient's last clinic appointment Ms. Min was apparently responding to another COPD exacerbation santiago ated with prednisone and doxycycline. Unfortunately while in [facility] at a neurology appointment the patient had a presync opal episode. She also had apparently "run out" of her oxygen. She was subsequently admitt ed to the hospital in [facility]. They have had any acute pulmonary illnesses. The patient has not required a prednisone tape r since our last clinic appointment. Likewise Kait has required antibiotics for a COPD e xacerbation since our last clinic appointment. The patient is currently on a daily regimen of Advair for their COPD. They do feel like th is medication regimen is/are controlling their symptoms. Currently she is using their short acting bronchodilator, Pro Air, 0 times a day (out of it). Currently the patient is able to walk couple blocks at their own pace on level ground befor e developing dyspnea. They are not exercising regularly. Their typical exercise consists of minimal walking. Kait are not enrolled in cardiac/pulmonary rehabilitation. They have not completed pulmonary rehabilitation in the past. Kait does cough chronically and does not produce mucous. They have not had hemoptysis si nce our last appointment. She has been evaluated for nocturnal oxygen. They currently are using nocturnal oxygen. Hannah harmon is currently on 1 LPM at night while sleeping. They report excellent compliance. They have been evaluated for daytime oxygen and do use it. They are currently on 1 LPM with exertion and 1 LPM at rest. They have not reported recent symptoms of nasal congestion, runny nose or post nasal drip. The patient have received this year's influenza vaccination. They are up to date with thei r Pneumovax and Prevnar 13. Ms. Min is currently smoking a pack of cigarettes a day. She sees Dr. Walker in follow-up for her sleep apnea intolerant of CPAP next week. Likewise the patient sees her primary ca re provider next week on Wednesday. Past Medical History Past Medical History: Diagnosis Date Abnormal chest CT Most likely postoperative decortication changes Acid reflux disease Bipolar 1 disorder ([facility]) CHRONIC TENSION HEADACHE Classical migraine without mention of intractable migraine Diabetes mellitus, type 2 ([facility]) Empyema lung ([facility]) 2005 right GI bleeding Hypercholesterolemia Hypertension Hypothyroidism IBS (irritable bowel syndrome) Knee pain Lymphedema Nausea and vomiting Nocturia Obesity Panic anxiety syndrome Pneumonia Pyoderma gangreosum-LE RA (rheumatoid arthritis) ([facility]) Followed by Dr. Becerra Rheumologist in [place] Reflux esophagitis Restless leg syndrome Urinary [...] Rfl: azaTHIOprine (IMURAN) 50 mg tablet, Take 100 mg by mouth every evening., Disp: , Rfl: azaTHIOprine (IMURAN) 50 mg tablet, Take 1 tablet by mouth every morning., Disp: , Rfl : buprenorphine (BUTRANS) 20 mcg/hr patch, Place 1 patch onto the skin Once a week., Dis p: , Rfl: busPIRone (BUSPAR) 10 MG tablet, Take 10 mg by mouth every morning., Disp: , Rfl: busPIRone (BUSPAR) 10 MG tablet, Take 20 mg by mouth every evening., Disp: , Rfl: cloNIDine (CATAPRES) 0.2 mg/24 hr patch, Place 1 patch onto the skin Once a week., Dis p: , Rfl: ergocalciferol (VITAMIN D-2) 50,000 units capsule, Take 50,000 Units by mouth Once a w [place]., Disp: , Rfl: LANTUS SOLOSTAR 100 UNIT/ML injection (pen), Inject 20 Units under the skin nightly., Disp: , Rfl: levothyroxine (SYNTHROID) 100 mcg tablet, Take 100 mcg by mouth every morning (before breakfast). Take with 300mcg for total of 400mcg, Disp: , Rfl: levothyroxine (SYNTHROID, LEVOTHROID) 300 MCG tablet, Take 300 mcg by mouth every morn ing (before breakfast)., Disp: , Rfl: magnesium oxide (MAG-OX) 400 mg tablet, Take 1 tablet by mouth Daily., Disp: , Rfl: metFORMIN (GLUCOPHAGE) 500 mg tablet, Take 1,000 mg by mouth 2 times daily (with break fast & dinner)., Disp: , Rfl: omeprazole (PRILOSEC) 20 mg capsule, Take 1 capsule by mouth every morning (before jermaine akfast)., Disp: 90 capsule, Rfl: 3 predniSONE (DELTASONE) 10 mg tablet, Take by mouth 6 tablets (60 mg) days 1-5; then 4 tablets (40 mg) on day 6; then 3 tablets (30 mg) on day 7; then 2 tablets (20 mg) on day 8; then 1 tablet (10 mg) on day 9; and 1/2 tablet (5 mg) on day 10 then stop, Disp: 41 tablet, Rfl: 0 pregabalin (LYRICA) 150 MG capsule, Take 150 mg by mouth 2 times daily., Disp: , Rfl: sulfaSALAzine (AZULFIDINE) 500 MG [...] mg by mouth nightly., Disp: , Rfl: verapamil (CALAN SR) 240 mg SR tablet, Take 2 tablets by mouth nightly., Disp: , Rfl: vortioxetine (TRINTELLIX) 10 mg tablet, Take 10 mg by mouth every morning., Disp: , Rf l: ziprasidone (GEODON) 80 MG capsule, Take 80 mg by mouth nightly., Disp: , Rfl: Immunizations: Immunization History Administered Date(s) Administered INFLUENZA PF 18 Y OR >,TRIVALENT RECOMBINANT 02/03/2012, 02/17/2013, 01/17/2014 INFLUENZA PF QUAD(PED/ADOL/ADULT),PSKT or VIAL 02/15/2015, 02/17/2016 INFLUENZA PF TRIVALENT(PED/ADOL/ADULT), PSKT 03/07/2009, 02/18/2010, 01/17/2014, 2013 INFLUENZA QUADR W/PRES (PED/ADOL/ADULT) MULTIDOSE 01/27/2017, 02/10/2018 INFLUENZA, D8E1-10, UNSPECIFIED 03/09/2009 INFLUENZA, UNSPECIFIED FORMULATION 04/27/2000, 02/04/2011, 02/03/2012, 01/10/2013, 1104/2012, 01/10/2015 PNEUMOCOCCAL CONJUGATE 13-VALENT (PCV13) 03/19/2013, 04/24/2014 PNEUMOCOCCAL POLYSACCHARIDE 23-VALENT (PPSV23) 04/04/2009, 03/22/2013, 01/10/2015 TDAP, (ADOL/ADULT) 08/29/2011 Objective BP (!) 158/98 | Pulse 92 | Ht 1.702 m (5' 7") | Wt 104.4 kg (230 lb 2.6 oz) | SpO2 95% Comment: 1L Pulse | BMI 36.05 kg/m Physical Exam Constitutional: She is oriented [...] has no rales. Musculoskeletal: She exhibits edema (Trace of pitting edema to the upper calf bilaterally). Lymphadenopathy: She has no cervical adenopathy. Neurological: She is alert and oriented to person, place, and time. Gait normal. Skin: Skin is warm and intact. No cyanosis. Nails show no clubbing. Psychiatric: Affect normal. Data: [facility]charge summary from [facility] in the [facility] references: The patient was subsequently admitted on 08/15/2018. Her condition deteriorated and she required intubation /mechanical ventilation. Patient was subsequently discharged on 08/19/2018. Diagnosis of medhat ateral lower lobe pneumonia was appreciated. Patient was discharged on cefdinir and prednis one. Assessment 1. Recent pneumonia bilateral lower lobe infiltrates noted on imaging. Respiratory harshil lure developed ultimately required intubation/mechanical ventilation. Ms. Min completed c efdinir 2 days ago. Gradual improvement of her symptoms are reported. The patient's recurrent pneumonia is significantly impacted by ongoing tobacco use and immu nosuppression with Imuran. 2. Frequent exacerbations of COPD related to a QTC of 497 ms treatment with azithromyci n 3 times a week and hives with azithromycin. Thus azithromycin 3 times a week is not an op tion. At follow-up we will discuss the initiation of Daliresp. 3. COPD severity somewhat difficult to assess given restrictive pulmonary function test s findings. Current treatment consists of Advair and as needed Pro Air. 4. Hypoxemia secondary to alveolar hypoventilation. The patient's oxygen requirements have been decreased. Appropriate saturation is currently noted. Current usage supplemental oxygen at 1 L/min. 5. Tobacco use currently smoking a pack of cigarettes a day. Today we shared with the patient smoking cessation resources. Will defer to her PCP regard ing pharmacologic treatment. 6. Obstructive sleep apnea/chronic ventilatory insufficiency intolerant of IVAPS. Trevor molina Ms. Min is solely using supplemental oxygen at 1 L/min at night while sleeping. Ongo ing evaluation with Dr. Walker is occurring. Total duration of the patient's clinic appointment was in excess of 30 minutes. Greater th an 50% of time was spent in counseling related to smoking cessation and management of the pa clyde's COPD. Plan 1. Smoking cessation strongly encouraged. 2. Close pulmonary clinic follow-up with an appointment in 4 weeks time. 3. We will look into obtaining a portable concentrator. 4. We will discuss initiation of Daliresp with follow-up. 5. Walking oximetry assessment with follow-up. CC: Ora Slater, PA documented in this [...] 2020 | Visit | | MD Cely LUNDSONU | | | | | | [place] | | | | | | [address] | | | | | | | | +--------+---------+ + + + documented as of this encounter Results Pulmonary function test home oxygen evaluation (09/22/2018 2:54 PM PDT) + + + | Narrative | Performed At | + + + | Navdeep | | | MD Harjinder 09/22/2018 15:01 PULMONARY FUNCTION TESTING | | | SPIROMETRY: The FVC was 2.20 L or 60 % of predicted. The FEV1 was 2.02 | | | L or 68 % of predicted. FEV1/FVC ratio was 92 %. LUNG VOLUMES: The | | | total lung capacity was 4.78 L or 89 % of predicted. The residual | | | volume was 2.19 L or 120 % of predicted. RV/TLC ratio was 135 % of | | | predicted. DIFFUSION CAPACITY: The diffusion capacity was 15.5 | | | mL/mmHg per minute or 56 % of predicted. Walking oximetry: The | | | patient walked approximately 800 feet over 4 minutes. The resting O2 | | | saturation on room air was 96%. With ambulation O2 saturation fell | | | to a kimmy of 89%. Heart rate peaked at 106 bpm. Supplemental | | | oxygen was not initiated. 6-minute walk distance: 183 m Arterial blood | | | gas: On supplemental oxygen at 1 L/min. pH was 7.42, PCO2 40.9 and | | | the PO2 was 146. IMPRESSION: Spirometry is consistent with moderate | | | restrictive physiology. Lung volume testing is consistent with gas | | | trapping physiology. Diffusion capacity is moderately reduced and is | | | not corrected for measured hemoglobin. No significant oxygen | | | desaturation was noted with exertion. The patient's arterial blood | | | gas does not suggest significant hypoxemia or hypercapnia. Compared to | | | pulmonary function test performed 11/19/2017 the patient's forced vital | | | capacity has decreased 3% the total lung capacity has increased 4% | | | and the uncorrected DLCO has increased 3%. These findings are | | | consistent with overall stability. Previously documented exertional | | | hypoxemia appears to have resolved. Test performed: | | | 09/22/2018Electronically signed by: Navdeep Grande MD 09/22/2018 | | | 14:54[facility] | | |physiology. Lung volume testing is consistent with gas trapping | | |physiology. Diffusion capacity is moderately reduced and is not | | |corrected for measured hemoglobin. No significant oxygen | | |desaturation was noted with exertion. The patient's arterial | | |blood gas does not suggest significant hypoxemia or hypercapnia. | | | | | |Compared to pulmonary function test performed 11/19/2017 the | | |patient's forced vital capacity has decreased 3% the total lung | | |capacity has increased 4% and the uncorrected DLCO has increased | | |3%. These findings are consistent with overall stability. | | |Previously documented exertional hypoxemia appears to have | | |resolved. | | | | | |Test performed: 09/22/2018 | | |Electronically signed by: Navdeep Grande MD 09/22/2018 14:54 | | |[facility] | | + + + documented in this encounter Visit Diagnoses + + | Diagnosis | + + | COPD, mild (HCC) - Primary Chronic airway obstruction, not elsewhere classified | + + | Alveolar hypoventilation Other dyspnea and respiratory abnormality | + + | JESUSITA and COPD overlap syndrome (HCC) | + + documented in this encounter
--- OUTSIDE RECORDS SUMMARY | ~2019-05-03 | XMS | Encounter Summary ---
Demographics + + + | Address | [address] | | | [place] [address] | + + + | Home Phone [...] | | | | | [place] [address] | | + + + + + | Robson Min | ECON | Unknown | | + + + + + | Isabella Whitehead | ECON | Unknown | | + + + + + Care Team Providers + +------+ + | Care Residue Furnace Operator Name | Role | Phone | + +------+ + | Ora Slater | PCP | | + +------+ + Encounter Details +--------+ + + + + | Date | Type | Department | Care Team | Description | +--------+ + + + + | 09/22/ | Hospital | [facility] | Navdeep Grande, | COPD, mild (HCC) | | 2019 | Encounter | MED CTR PULMONARY | MD [address] | | | | | FUNCTION [address] | [place], [place] | | | | | [place] [place], | [address] | | | | | [place] [address] | | | | | | [phone] | Neno Walker | | | | | | MD Srinivas [address] | | | | | | [address] [place] | | | | | | [place] [address] | | | | | | [phone] | | | | | | | [...] puffs into | 1 | 11 | // | | | HFA) 90 mcg/puff | [...] [place] | | | | | | [address] | | | | | | | | +--------+---------+ + + + | 07/26/ | Office | Pulmonology | Navdeep Grande, | | | 2019 | Visit | | [address] | | | | | | [place] | | | | | | [id number] | | | | | | | | +--------+---------+ + + + documented as of this encounter Procedures + +--------+ + + + | Procedure Name | Priori | Date/Time | Associated Diagnosis | Comments | | | ty | | | | + +--------+ + + + | PFT PULMONARY | LARS | 09/22/2018 | COPD, mild (HCC) | Results for this | | FUNCTION TESTING | | 2:54 PM | | procedure are in the | | ORDERS | | PDT | | results section. | + +--------+ + + + | PFT PULMONARY | LARS | 09/22/2018 | COPD, mild (HCC) | Results for this | | FUNCTION TESTING | | 2:54 PM | | procedure are in the | | ORDERS | | PDT | | results section. | + +--------+ + + + | PFT PULMONARY | LARS | 09/22/2018 | COPD, mild (HCC) | Results for this | | FUNCTION TESTING | | 2:54 PM | | procedure are in the | | ORDERS | | PDT | | results section. | + +--------+ + + + | PFT PULMONARY | LARS | 09/22/2018 | COPD, mild (HCC) | Results for this | | FUNCTION TESTING | | 2:54 PM | | procedure are in the | | ORDERS | | PDT | | results section. | + +--------+ + + + documented in this encounter Results Pulmonary function test home [...] Grande MD 09/22/2018 | | | 14:54[facility] | | |physiology. Lung volume testing [...] Grande MD 09/22/2018 14:54 | | |[facility] | | + + + documented in this encounter Visit Diagnoses + + | Diagnosis | + + | COPD, mild (HCC) Chronic airway obstruction, not elsewhere classified | + + documented in this encounter"
--- OUTSIDE RECORDS SUMMARY | ~2019-05-03 | XMS | Encounter Summary ---
Demographics + + + | Address | [address] | | | [place] [address] | + + + | Home Phone | | + + + | Preferred Language | Unknown | + + + | Marital Status | Single | + + + | Je[employer] Affiliation | CHR | + + + [...] | | | | | [place] [address] | | + + + + + Care Team Providers + +------+ + | Care Laboratory Mechanical Technician Name | Role | Phone | + +------+ + PCP | Unavailable | + +------+ + Encounter Details +--------+ + + + + | Date | Type | Department | Care Team | Description | +--------+ + + + + | 10/26/ | Procedure - | | Lab, Vascular | Vascular | | 2006 | | | | [...] | + +--------+ + + + | VASCULAR FLOW | | 10/26/2005 | | | | IMAGING, NONCARDIAC | | | | | | - VASC LAB | | | | | + +--------+ + + + documented in this encounter Visit Diagnoses Not on filedocumented in this encounter"
--- OUTSIDE RECORDS SUMMARY | ~2019-05-03 | XMS | Encounter Summary ---
Demographics + + + | Address | [address] | | | [place] [address] | + + + | Home Phone [...] | | | | | [place] [address] | | + + + + + Care Team Providers + +------+ + | Care Shelter Director Name | Role | Phone | + +------+ + PCP | Unavailable | + +------+ + Encounter Details +--------+ + + + + | Date | Type | Department | Care Team | Description | +--------+ + + + + | 05/15/ | Results | | Other, Faculty | | | 2000 | Only | | [phone] | | +--------+ + + + + [...] | + +--------+ + + + | HAND, 1 VIEW | Routin | 05/15/1999 | | Results for this | | | e | 12:42 PM | | procedure are in the | | | | PST | | results section. | + +--------+ + + + | SURFACE MARKER, MISC | Routin | 05/15/1999 | | Results for this | | | e | 12:35 PM | | procedure are in the | | | | PST | | results section. | + +--------+ + + + documented in this encounter Results HAND, 1 VIEW (05/15/1999 12:42 PM PST) + + + + + + | Component | Value | Ref Range | Performed | Pathologist | | | | | At | Signature | + + + + + + | HAND, 1 | Radiologist 1: FABIAN, | | | | | VIEW | DIEUDONNE, | | | | | | M.D.BILATERAL HANDS, PA | | | | | | VIEWS: 05/15/99 | | | | | | DICTATED ON 05/16/99 | | | | | | RIGHT HAND FINDINGS: | | | | | | There is juxta-articular | | | | | | osteopenia primarily | | | | | | inthe phalanges and | | | | | | metacarpophalangeal | | | | | | joints. Carpal bone | | | | | | alignmentis normal. No | | | | | | definite bone erosion | | | | | | is seen. No definite | | | | | | soft tissueswelling is | | | | | | noted. There are no | | | | | | fractures. LEFT HAND | | | | | | FINDINGS: There is a | | | | | | small corticated | | | | | | fracture at the | | | | | | radialstyloid process. | | | | | | Juxta-articular | | | | | | osteopenia seen in the | | | | | | phalangesand the | | | | | | metacarpophalangeal | | | | | | joints. No joint | | | | | | subluxation or | | | | | | definitebone erosions | | | | | | are noted. There is no | | | | | | definite soft tissue | | | | | | swelling. IMPRESSION: | | | | | | Juxta-articular | | | | | | osteopenia in the | | | | | | phalanges and | | | | | | metacarpophalangealjoint | | | | | | s of both hands, and | | | | | | right ulnar styloid | | | | | | process corticated | | | | | | smallerosion compatible | | | | | | with inflammatory | | | | | | arthropathy. END OF | | | | | | IMPRESSION: | | | | + + + + + + + + | Specimen | + + | | + + + + + | Narrative | Performed At | + + + | Ordered by DUNCAN FLORES M.D. | | + + + + +---------+ + + | Performing | Address | City/State/Zipcode | Phone Number | | Organization | | | | + +---------+ + + | [facility] DEPARTMENT OF | | | | | RADIOLOGY | | | | + +---------+ + + SURFACE MARKER, MISC (05/15/1999 12:35 PM PST) + + + + + + | Component | Value | Ref Range | Performed | Pathologist | | | | | At | Signature | + + + + + + | SURFACE | Complete | | [facility] | | | MARKER,MISC | | | DEPARTMENT | | | | | | OF | | | | | | PATHOLOGY | | + + + + + + | SPECIMEN | Green tube | | [facility] | | | | | | DEPARTMENT | | | | | | OF | | | | | | PATHOLOGY | | + + + + + + | INTERP, | cd64 study complete | | [facility] | | | FLOW | | | DEPARTMENT | | | | | | OF | | | | | | PATHOLOGY | | + + + + + + + + | Specimen | + + | | + + + + + | Narrative | Performed At | + + + | Ordered by DUNCAN FLORES Surface Marker, Jasminac. BACKGROUND | [facility] | | OF ASSAY: CD64 is an immunoglobulin receptor, which is upregulated | DEPARTMENT OF | | on neutrophils in response to septicemia, possibly some other | PATHOLOGY | | infections and some other stimuli. It is detected with an antibody. | | | RESULTS FOR THE CURRENT SPECIMEN: CD64 density on neutrophils = | | | 1,599/cell (Normal < 800) INTERPRETATION: CD64 results are | | | consistent with septicemia. NOTE: These results are not diagnostic. | | | This is an experimental assay being developed by a CLIA certified | | | lab at [facility]. The patient will not be charged. Reviewed by Jana | | | Mariola, Ph.D. | | + + + + + + + + | Performing | Address | City/State/Zipcode | Phone Number | | Organization | | | | + + + + + | [facility] DEPARTMENT OF | [address] [place] [address] | [place] [address] | | | PATHOLOGY | [address] | | | + + + + + | [facility] DEPARTMENT OF | [address] [facility] [facility] | [place] [address] | | | PATHOLOGY | [address] | | | + + + + + documented in this encounter Visit Diagnoses Not on filedocumented in this encounter"
--- OUTSIDE RECORDS SUMMARY | ~2019-05-03 | XMS | Encounter Summary ---
Demographics + + + | Address | [address] | | | [place] [address] | + + + | Home Phone [...] | | | | | [place] [address] | | + + + + + | Robson Min | ECON | Unknown | | + + + + + | Isabella Whitehead | ECON | Unknown | | + + + + + Care Team Providers + +------+ + | Care Hub Borer Name | Role | Phone | + [...] Alessia Salgado | | | | | [place], [place] | [place] [address] | | | | | [address] | [phone] | | | | | [phone] | | | +--------+ + + + [...] [place]HEL[place] | | | | | | [address] | | | | | | | | +--------+---------+ + + + | 07/26/ | Office | Pulmonology | Navdeep Grande, | | | 2019 | Visit | | [address] | | | | | | [place] | | | | | | [address] | | | | | | | [...] + + + | Patient Name: CARLINE MIN Date of : 1970 | | | [...] LVLs A4C: 7.85 cm | | | Shipfitter Helper: SAL Authenticated by: Braden Isabel Report | | | Date/Time: 09-21-2015 16:05:10 | | + + + + + | Procedure Note | + + | Jose Hanks Conversion - 12/09/2018 10:47 AM PDT Patient Name: Anupam MIN of | | : 1970 Performing Physician: Braden | | Coltla INDICATIONS----- | | ------Murmur CONCLUSIONS 1. Overall [...] MOD A4C: 46.26 mlLVLs A4C: 7.85 cm Shipfitter Helper: | | DHAuthenticated by: Braden IsabelReport Date/Time: 09-21-2015 16:05:10 IMPRESSION: | | 1. [...] |LVLs A4C: 7.85 cm | | | |Shipfitter Helper: DH | |Authenticated by: Braden Isabel | |Report Date/Time: 09-21-2015 16:05:10 | | | |IMPRESSION: | |1. Overall left ventricular systolic function is normal with, an EF between 65 - 70 %. | + + documented in this encounter Visit Diagnoses Not on filedocumented in this encounter"
--- OUTSIDE RECORDS SUMMARY | ~2019-05-03 | XMS | Encounter Summary ---
Demographics + + + | Address | [address] | | | [place] [address] | + + + | Home Phone | | + + + | Preferred Language | Unknown | + + + | Marital Status | Single | + + + | Samaritan Affiliation | Unknown | + + + | Race | Unknown | + + + | Ethnic Group | Unknown | + + + Author + + + | Author | [facility] | | | and [place] | + + + | Organization | [facility] | | | [...] | | | | | [place] [address] | | + + + + + | Robson Min | ECON | Unknown | | + + + + + | Isabella Whitehead | ECON | Unknown | | + + + + + Care Team Providers + +------+ + | Care Sheet Metal Mechanic Name | Role | Phone | + +------+ + | Ora Slater | PCP | | + +------+ + Reason for Referral Service/Procedure (Routine) +--------+--------+ + + + + | Status | Reason | Specialty | Diagnoses / | Referred By | Referred To | | | | | Procedures | Contact | Contact | +--------+--------+ + + + + | Closed | | Diagnostic | Diagnoses | Lynne | [facility] | | | | Radiology | Dizziness | Laine, | [facility] | | | | | Procedures | [address] | | | | | ECHO | [address] | [address] | | | | | Complete | [place] | [place] | | | | | | [place], [place] | [address] | | | | | | [address] | Phone: | | | | | | Phone: | [phone] | | | | | | [phone] | Fax: | | | | | | Fax: | [phone] | | | | | | [phone] | | +--------+--------+ + + + + [...] | | first degree | Yane, | [place], [place] | | | | | Procedures | [place] | [address] Phone: | | | | | consult | [address] | [phone] | | | | | | Phone: | Fax: | | | | | | [phone] | [phone] | | | | | | Fax: | | | | | | | [phone] | | + +--------+ + + + + Encounter Details +--------+---------+ + + + | Date | Type | Department | Care Team | Description | +--------+---------+ + + + | 01/03/ | Office | [facility] | Laine Batista DO | Atrioventricular | | 2019 | Visit | CARDIOLOGY [place] | [address] | block (Primary Dx); | | | | [address] | [place], [place] | Dizziness; | | | | [place], [place] | [address] | Palpitations; | | | | [address] | | Hypertension, | | | | [phone] | | unspecified type; | | | [...] (HCC); | | | | | | Methamphetamine | | | | | | abuse (HCC); Tobacco | | | | | | [...] documented in this encounter Progress Notes Laine Batista DO - 01/03/2019 1:00 PM PDT [facility] Cardiology Consult Note Reason for Consultation: [...] decortication changes Acid reflux disease Angina pectoris ([facility]) Arrhythmia Bipolar 1 disorder ([facility]) CHRONIC TENSION HEADACHE Classical migraine without mention of intractable migraine Diabetes mellitus, type 2 ([facility]) Empyema lung ([facility]) 2006 right GI bleeding Hypercholesterolemia Hypertension Hypothyroidism IBS (irritable bowel syndrome) Knee pain Lymphedema Myocardial infarction ([facility]) Nausea and vomiting Nocturia Obesity Panic anxiety syndrome Pneumonia Pyoderma gangreosum-LE RA (rheumatoid arthritis) ([facility]) Followed by Dr. Becerra Rheumologist in [place] Reflux esophagitis Restless leg syndrome Urinary [...] Gluc Sensor (FREESTYLE HUAN 14 DAY SENSOR) [facility] [DISCONTINUED] ergocalciferol (VITAMIN D-2) 50,000 units capsule [...] mouth 2 times daily. Respiratory Therapy Supplies [facility] Portable oxygen concentrator to provide O2 at [...] Results Component Value Date TSH 0.58 08/15/2018 EK01/03/19 ordered and reviewed by myself normal sinus [...] [place]HEL[place] | | | | | | [address] | | | | | | | | +--------+---------+ + + + | 07/26/ | Office | Pulmonology | Navdeep Grande, | | | 2019 | Visit | | MD [address] | | | | | | [place] | | | | | | [address] | | | | | | | [...] | | | | | by [facility] Read Only, | | | | | | [facility] ([address]), | | | | | | editor producer Anupam Sanz | | | | | [...]
--- OUTSIDE RECORDS SUMMARY | ~2019-05-03 | XMS | Encounter Summary ---
Demographics + + + | Address | [address] | | | [place] [address] | + + + | Home Phone | | + + + | Preferred Language | Unknown | + + + | Marital Status | Single | + + + | Hinduism Affiliation | CHR | + + + | Race | White | + + + | Ethnic Group | Not or | + + + Author + + + | Author | [facility] | + + + | Organization | [facility] | + + + | Address | Unknown | + + + | Phone | Unavailable | + + + Support + + + + + | Name | Relationship | Address | Phone | + + + + + | Scot Johnson | ECON | [address] | | | | | [place] [address] | | + + + + + Care Team Providers + +------+ + | Care Rn Traveling Name | Role | Phone | + +------+ + PCP | Unavailable | + +------+ + Encounter Details +--------+ + + + + | Date | Type | Department | Care Team | Description | +--------+ + + + + | 12/03/ | Results | General Internal | Edgardo Winkler MD | | | 2002 | Only | Medicine [address] | | | | | | [address] | | | | | | Mailcode: [id number] | | | | | | Outpatient Clinic | | | | | | [facility], [address] | | | | | | [place], [place] | | | | | | [address] | | | | | | [phone] | | | +--------+ + + + [...] Results for this | | | | 12:15 AM | | procedure are in the | | | | PDT | | results section. | + +--------+ + + + | C. DIFFICILE TOXIN, | Urgent | 12/03/2002 | | Results for this | | W/REFLEX | | 11:50 PM | | procedure are in the | | CONFIRMATION IF | | PDT | | results section. | | INDETERMINATE | | | | | | RESULTS | | | | | + +--------+ + + + documented in this encounter Results POTASSIUM, PLASMA (12/04/2002 12:15 AM PDT) + +-------+ + + + | Component | Value | Ref Range | Performed | Pathologist | | | | | At | Signature | + +-------+ + + + | POTASSIUM, | 3.5 [...] | + + + + + | [facility] DEPARTMENT OF | [address] | [place] [address] | | | PATHOLOGY | [address] | | | + + + + + | [facility] DEPARTMENT OF | [facility] [facility] | [place] [address] | | | PATHOLOGY | [address] | | | + + + + + C. DIFF. TOXINS A+B (12/03/2002 11:50 PM PDT) + + + + + + | Component | Value | Ref Range | Performed | Pathologist | | | | | At | Signature | + + + + + + | C. | Negative | | | | | DIFFICILE | | | | | | TOXIN | | | | | + + + + + + + + | Specimen | + + | | + + + + + + + | Performing | Address | City/State/Zipcode | Phone Number | | Organization | | | | + + + + + | [facility] | [address] | [place] [address] | | | LAB-MICRO | | | | + + + + + documented in this encounter Visit Diagnoses Not on filedocumented in this encounter"
--- OUTSIDE RECORDS SUMMARY | ~2019-05-03 | XMS | Encounter Summary ---
Demographics + + + | Address | [address] | | | [place] [address] | + + + | Home Phone [...] + + + | Author | [facility] | | | and [place] | + + + | Organization | [facility] | | | [...] | | | | | [place] [address] | | + + + + + | Robson Min | ECON | Unknown | | + + + + + | Isabella Whitehead | ECON | Unknown | | + + + + + Care Team Providers + +------+ + | Care Director Of Marketing [employer] Name | Role | Phone | + [...] + + | 08/29/ | Telephone | [facility] | Navdeep Grande, | Other (Advair) | | 2019 | | PULMONARY [address] | MD [address] | | | | | [place], | [place] | | | | | [place] [address] | [address] | | | | | [phone] | | | +--------+ + + + [...] [place] | | | | | | [address] | | | | | | | | +--------+---------+ + + + | 07/26/ | Office | Pulmonology | Navdeep Grande, | | | 2019 | Visit | | [address] | | | | | | [place] | | | | | | [address] | | | | | | | | +--------+---------+ + + + documented as of this encounter Visit Diagnoses Not on filedocumented in this encounter"
--- OUTSIDE RECORDS SUMMARY | ~2019-05-03 | XMS | Encounter Summary ---
Demographics + + + | Address | [address] | | | [place] [address] | + + + | Home Phone | | + + + | Preferred Language | Unknown | + + + | Marital Status | Single | + + + | Sabianism Affiliation | CHR | + + + [...] | | | | | [place] [address] | | + + + + + Care Team Providers + +------+ + | Care Furniture Mover Driver Name | Role | Phone | [...] | + + + + + | [facility] | [address] [place] [address] | [place] [address] | | | PATHOLOGY | [address] | | | + + + + + | [facility] | [address] [place] [address] | [place] [address] | | | PATHOLOGY | [address] [...] DEPARTMENT OF | [address] | [place] [address] | | | PATHOLOGY | [address] | | | + + + + + | [facility] DEPARTMENT OF | [address] | [place] [address] | | | PATHOLOGY | [address] [...] | + + + + + | [facility] | [address] [facility] | [place] [address] | | | PATHOLOGY | [address] | | | + + + + + | [facility] | [address] [facility] | [place] [address] | | | PATHOLOGY | [address] [...] | + + + + + | [facility] | [address] | [place] [address] | | | LAB-MICRO | | | [...] + + + + + | [facility] | [address] | [place] [address] | | | LAB-MICRO | | | [...] + + + | [facility] | [address] | [place] [address] | | | LAB-MICRO | | | [...] + + + | [facility] | [address] | [place] [address] | | | LAB-MICRO | | | [...] + + + + + | [facility] DEPARTMENT OF | [facility] | [place] [address] | | | PATHOLOGY | [address] | | | + + + + + | [facility] DEPARTMENT OF | [facility] | [place] [address] | | | PATHOLOGY | [address] [...] + + + + + | [facility] DEPARTMENT OF | [address] [facility] | [place] [address] | | | PATHOLOGY | [address] | | | + + + + + | [facility] DEPARTMENT OF | [address] [facility] | [place] [address] | | | PATHOLOGY | [address] [...] | + + + + + | [facility] | [address] [facility] | [place] [address] | | | PATHOLOGY | [address] | | | + + + + + | [facility] | [address] [facility] | [place] [address] | | | PATHOLOGY | [address] [...] [facility] DEPARTMENT OF | [address] [facility] | [place] [address] | | | PATHOLOGY | [address] | | | + + + + + | [facility] DEPARTMENT OF | [address] [facility] | [place] [address] | | | PATHOLOGY | [address] [...] DEPARTMENT OF | [address] | [place] [address] | | | PATHOLOGY | [address] | | | + + + + + | [facility] | [address] | [place] [address] | | | PATHOLOGY | [address] | | | + + + + + CHEST 1 VIEW (12/02/2002 5:00 PM PDT) + + + + + + | Component | Value | Ref Range | Performed | Pathologist | | | | | At | Signature | + + + + + + | CHEST, 1 | Radiologist 1: MAIRXA, | | | | | VIEW | [...]
--- OUTSIDE RECORDS SUMMARY | ~2019-05-03 | XMS | Encounter Summary ---
Demographics + + + | Address | [address] | | | [place] [address] | + + + | Home Phone | | + + + | Preferred Language | Unknown | + + + | Marital Status | Single | + + + | Muslim Affiliation | Unknown | + + + | Race | Unknown | + + + | Ethnic Group | Unknown | + + + Author + + + | Author | [facility] | | | and [place] | + + + | Organization | [facility] | | [...] | | | | | [place] [address] | | + + + + + | Robson Min | ECON | Unknown | | + + + + + | Isabella Whitehead | ECON | Unknown | | + + + + + Care Team Providers + +------+ + | Care Forensic Identification Specialist Name | Role | Phone | + +------+ + | Bart Ba DO | PCP | | + +------+ + Reason for Visit +--------+ + | Reason | Comments | +--------+ + | Other | sleep apnea, slepp study f/u | +--------+ + Evaluate & Treat (Routine) +--------+--------+ + + + + | Status | Reason | Specialty | Diagnoses / | Referred By | Referred To | | | | | Procedures | Contact | Contact | +--------+--------+ + + + + | Closed | | Pulmonary | Diagnoses | Monica Ba | | | | Disease / | COPD | Bart Bell DO | MD Navdeep | | | | Pulmonology | (chronic | [address] | [address] | | | | | obstructive | [address] | [place] | | | | | pulmonary | [place] | [place] [address] | | | | | disease) | 3-106 | Phone: | | | | | ([facility]) | [place] | [phone] | | | | | Procedures | [address] | Fax: | | | | | F/U [address]UZ | Phone: | [phone] | | | | | [place] GRANDE | [phone] | | | | | | 11/19/17 | | | +--------+--------+ + + + + Encounter Details +--------+---------+ + + + | Date | Type | Department | Care Team | Description | +--------+---------+ + + + | 12/10/ | Office | [facility] | Navdeep Grande, | Alveolar | | 2018 | Visit | PULMONARY [address] | MD [address] | hypoventilation | | | | [place], | [place] | (Primary Dx); COPD, | | | | [place] [address] | [address] | mild (HCC); | | | | [phone] | | Hypoxemia; JESUSITA and | | [...] + + + | Blood Pressure | 164/94 | 12/10/2017 2:48 PM | | | | | PDT | | + + + + + | Pulse | 87 | 12/10/2017 2:48 PM | | | | | PDT | | + + + + + | Temperature | - | - | | + + + + + | Respiratory Rate | - | - | | + + + + + | Oxygen Saturation | 95% | 12/10/2017 2:48 PM | room air | | | | PDT | | + + + + + | Inhaled Oxygen | - | - | | | Concentration | | | | + + + + + | Weight | 109.6 kg (241 lb 10 | 12/10/2017 2:48 PM | | | | oz) | PDT | | + + + + + | Height | 167.6 cm (5' 6") | 12/10/2017 2:48 PM | | | | | PDT | | + + + + + | Body Mass Index | 39 | 12/10/2017 2:48 PM | | | | | PDT | | + + + + + documented in this encounter Patient Instructions Patient Instructions Navdeep Grande MD - 12/10/2017 3:00 PM PDT Please use oxygen at 3 1/2 LPM until BPAP is otained then at 5 LPM. Using a BPAP A BPAP is a type of ventilator, a device that helps with breathing. It s also known as a bilevel positive airway pressure device. It may be used when a health problem is making it h veronica for you to breathe. The BPAP machine You should be familiar with the parts of your BPAP machine. They include: A face mask, nasal mask, or nasal plugs The machine s motor, which blows air into a tube The tubing that connects the machine s motor to the mask or plugs Your BPAP machine might also have other features, such as a heated humidifier. Before you start BPAP therapy, your machine may need to be calibrated. Someone from your [facility] team will adjust the settings. That person is often a respiratory therapist. The se ttings need to be correct so that you receive the right therapy. You may also get other inst ructions on how to get ready for your BPAP therapy. When to use your BPAP You might get BPAP therapy while at the hospital for a breathing emergency. You also might use it at home for a chronic condition. Follow your healthcare provider s instructions abo ut when to use your BPAP. You might need to use it only while you sleep. Or you might need t o use it all the time. Make sure to use it exactly as instructed. Otherwise you will not get the full benefits from your BPAP therapy. Getting used to your BPAP When you first start using BPAP, you may feel uncomfortable. It may feel odd wearing a mask and feeling the flow of air. Over time, you should get used to it. If you feel like you lidia lly can t breathe while using BPAP, talk with your healthcare provider. He or she may need to adjust the pressure settings on your machine. It s important not to eat or drink anything while using BPAP. You might inhale food or li quid into your lungs if you do so. Your healthcare provider may give you other instructions about the best way to use your machine. If your health problem gets better, you may be able to start using less pressure on your BP AP machine. Or you might be able to use the machine less often. Work with your healthcare te am to help get the best treatment. The BPAP device settings are given as centimeters of water, or cm/H2O. Each person s pres sure settings are different. Your healthcare provider will tell you what settings to use. Ne roberto change your BPAP pressure setting unless your provider tells you to. BPAP 19 cm/H20 pressure when you breathe in BPAP 7 cm/H20 pressure when you breathe out Fixing problems with your BPAP Nasal dryness. A humidifier may help reduce nasal dryness. Eye or sinus symptoms. Using a facial mask instead of a nasal mask may also help lessen any eye or sinus symptoms. Headaches. If you get headaches, they could be because of sinus congestion. In some case s, your healthcare provider might prescribe nasal saline or an antihistamine for these sympt oms. Leaky mask, skin irritation, or pressure lines. You may need a different size or type of mask. You may also find that adjusting the straps around your mask helps. Stomach bloating. Your healthcare provider may be able to reduce the pressure setting on your machine to stop stomach bloating. Noise. If the noise from the BPAP bothers you, try using earplugs. If the device is very loud, check with the medical supplier to make sure it is working correctly. When to call your healthcare provider Have someone call 911 if you are struggling for breath or unable to breathe. Call your healthcare provider right away if any of these occur: You feel like you can t breathe while using your BPAP Your mask is constantly leaking air and you can t make it fit You have severe or ongoing skin irritation from your mask Date Last Reviewed: 05/20/201619997481-9922 [employer]. [address] [place] [address], [place] [address]. All righ ts reserved. This information is not intended as a substitute for professional medical care. Always follow your healthcare professional's instructions. documented in this encounter Progress Notes Navdeep Grande MD - 12/10/2017 3:00 PM PDTFormatting of this note might be different f rom the original. Pulmonary Clinic Follow Up 12/10/2017 HPI Kait Min is a 47 y.o. female patient of Bart Ba DO here today for follow up o f persistent severe nocturnal hypoxemia. Since her last clinic appointment Ms. Min underwent polysomnographic testing. The patien t states that she slept well on the night of her sleep study. She is interested in using PA P.. It has been 3 weeks since our last clinic appointment. At their last visit, we established a plan to perform a PSG. Since the last visit she feels like their symptoms are fluctuating a bit. Specifically Ms Angelita Min states that she is coughing more and slightly more short of breath with his smoking or conditions. She is using her Ventolin inhaler 4 5 times a day. They have have not had any recent episodes of "bronchitis-like" symptoms. To treat their COPD they are currently on a regimen of Advair and as needed Ventolin. They do feel like this medication regimen is decreasing their symptoms. The patient does not rep ort the presence of side effects from these medication(s). Currently Kait is able to walk 100 feet at their own pace on level ground before developi ng symptoms. They are not exercising regularly. Their typical exercise consists of minimal w alking. They are not enrolled in cardiac/pulmonary rehabilitation. She does cough chronically, and does not produce mucous. They have not had hemoptysis sinc e our last appointment. Kait has been evaluated for nocturnal oxygen and does qualify for use. They are currently on 2 LPM at night and 3 LPM with exertion. They report oxygen use 16 hrs. per day/. She does not have symptoms of heartburn or reflux. They have not noted recent symptoms of n shanika congestion or post nasal drip. The patient have received this year's influenza vaccination. They are up to date with thei r Pneumovax and Prevnar 13. Past Medical History Past Medical History: Diagnosis Date Abnormal chest CT Most likely postoperative decortication changes Acid reflux disease Bipolar 1 disorder (HCC) CHRONIC TENSION HEADACHE Classical migraine without mention of intractable migraine Diabetes mellitus, type 2 (HCC) Empyema lung ([facility]) 2005 right GI bleeding Hypercholesterolemia Hypertension Hypothyroidism [...] tablets in the evening, Disp: , Rfl: busPIRone (BUSPAR) 5 mg tablet, Take 5 mg by mouth 2 times daily., Disp: , Rfl: cloNIDine (CATAPRES) 0.3 mg/24 hr, Place 1 patch onto the skin Once a week., Disp: , R fl: ergocalciferol (VITAMIN D-2) 50,000 units capsule, Take 50,000 Units by mouth Once a w agdaagux., Disp: , Rfl: fluticasone-salmeterol (ADVAIR DISKUS) 250-50 [...] capsule daily , Dis p: , Rfl: LYRICA 75 MG capsule, Take [...] 23-VALENT (PPSV23) 04/04/2009, 03/19/2013 Objective BP (!) 164/94 | Pulse 87 | Ht 1.676 m (5' 6") | Wt 109.6 kg (241 lb 10 oz) | SpO2 95% C omment: room air | BMI 39.00 kg/m Appearance: Alert, cooperative, no distress, appears [...] Extremities: Extremities normal, atraumatic, no cyanosis, clubbing. 1+ edema to the knees bilaterally Skin: Warm and dry Lymph nodes: Cervical and supraclavicular nodes normal Neurologic: Gait normal Data: Split-night polysomnogram results dated 11/22/17 showed that with an IPAP of 19 and the EPAP of 9 and supplemental oxygen at 5 L/m that the patient had an RDI of 0 and oxygen saturation which nadired at 85%. Assessment 1. Nocturnal hypoxemia multifactorial. Components include alveolar hypoventilation and obstructive lung disease. Doubt significant interstitial lung disease related to underlying rheumatoid arthritis. The patient is in need of PAP in addition to supplemental oxygen while sleeping. It is reasonable to prescribe an iVAPS 2. Obstructive sleep apnea evidence of mild obstructive sleep apnea as noted on the rocío ent's polysomnogram. 3. COPD Gold stage I. Treated with Advair and as needed Ventolin. 4. Hypoxemia primarily at night while sleeping. Patient does wear supplemental oxygen w ith exertion. Her polysomnogram showed that despite IPAP of 19 and EPAP of 9 centimeters H2O that ongoing desaturation occurred. The patient requires supplemental oxygen at 5 L/m through iVAPS Plan 1. iVAPS with a respiratory rate of 12, tidal volume 550, IPAP 19 and pressure support of 9 cm H2O. 2. Increase supplemental oxygen to 3.5 L/m until iVAPS initiated. At that time she will t hen increase her supplemental oxygen to 5 L/m through iVAPS device. 3. Pulmonary clinic follow-up with compliance data one month after initiating iVAPS. CC: Bart Ba, DO documented in this [...] [place] | | | | | | [id number] | | | | | | | | +--------+---------+ + + + | 07/26/ | Office | Pulmonology | Navdeep Grande, | | | 2019 | Visit | | MD [address] | | | | | | [place] | | | | | | [address] | | | | | | | | +--------+---------+ + + + documented as of this encounter Visit Diagnoses + + | Diagnosis | + + | Alveolar hypoventilation - Primary Other dyspnea and respiratory abnormality | + + | COPD, mild (HCC) Chronic airway obstruction, not elsewhere classified | + + | Hypoxemia | + + | JESUSITA and COPD overlap syndrome (HCC) | + + documented in this encounter
--- OUTSIDE RECORDS SUMMARY | ~2019-05-03 | XMS | Encounter Summary ---
Demographics + + + | Address | [address] | | | [place] [address] | + + + | Home Phone | | + + + | Preferred Language | Unknown | + + + | Marital Status | Single | + + + | Evangelical Affiliation | Unknown | + + + [...] | | | | | [place] [address] | | + + + + + | Robson Min | ECON | Unknown | | + + + + + | Isabella Whitehead | ECON | Unknown | | + + + + + Care Team Providers + +------+ + | Care Electronic Commerce Specialist Name | Role | Phone | + +------+ + PCP | Unavailable | + +------+ + Encounter Details +--------+ + + + + | Date | Type | Department | Care Team | Description | +--------+ + + + + | 12/13/ | [facility] | [facility] | Navdeep Grande, | | | 2011 | Encounter | MED CTR XRAY [address] | MD [address] | | | | | [place] | [place] | | | | | [place] [address] | [address] | | | | | [phone] | | | +--------+ + + + [...] | 0 | 10/08/19 | | | vdhuegzbma-[id number] | every 6 hours as | | [...] 2019 | Visit | | [address] | | | | | | [place] | | | | | | [address] | | | | | | | | +--------+---------+ + + + | 07/26/ | Office | Pulmonology | Navdeep Grande, | | | 2019 | Visit | | [address] | | | | | | [place] | | | | | | [address] | | | | | | | [...] Performed At | + + + | [facility] Diagnostic Imaging Department | [facility] | | [address] [facility] [address] | [facility] | | NONCONTRAST CT CHEST | DIAG IMG | | CLINICAL HISTORY: FOLLOW UP CAVITARY LESIONS RIGHT LUNG. | | | TECHNIQUE: Axial images are obtained from the thoracic inlet through | | | upper abdomen without the use of contrast. COMPARISON: August | | | 2011 from [place], [place]. October 2005 from [facility] | | | [facility]. FINDINGS: Thick-walled cavitary lesions | | | [...] | | 16:53 Transcribed Date/Time: 12/14/2011 17:08 Urologist Physician: | | | <Electronically Signed by Ace Avery MD> 12/14/11 | | | 1754 | | + + + + + | Procedure Note | + + | Demario, Rad Conversion - 05/26/2013 5:55 PM [facility] | | Diagnostic Imaging Department | | [address] [facility] [address] | | | | | | | | NONCONTRAST CT CHEST | | | | CLINICAL HISTORY: FOLLOW UP CAVITARY LESIONS RIGHT LUNG. | | | | TECHNIQUE: Axial images are obtained from the thoracic inlet through upper | | abdomen without the use of contrast. | | | | COMPARISON: August 2011 from [place], [place]. October 2005 from [facility] | [facility]. | | | | FINDINGS: Thick-walled [...] | Transcribed Date/Time: 12/14/2011 17:08 | | Urologist Physician: | | <Electronically Signed by Ace Avery MD> 12/14/11 1754 | + + + +---------+ + + | Performing | Address | City/State/Zipcode | Phone Number | | Organization | | | | + +---------+ + + | [place] | | | | | [facility] | | | | + +---------+ + + documented in this encounter Visit Diagnoses Not on filedocumented in this encounter"
--- OUTSIDE RECORDS SUMMARY | ~2019-05-03 | XMS | Encounter Summary ---
Demographics + + + | Address | [address] | | | [place] [address] | + + + | Home Phone [...] | | | | | [place] [address] | | + + + + + Care Team Providers + +------+ + | Care Manager Critical Care Name | Role | Phone | + [...] | | | | Mailcode: [id number] | [place], [place] | | | | | [facility] | [address] | | | | | [place], [place] | [phone] | | | | | [address] | | | | | | [phone] | | | +--------+ + + + [...] | | + +---------+ + + | [facility] DEPARTMENT OF | | | | | RADIOLOGY | | | | + +---------+ + + documented in this encounter Visit Diagnoses Not on filedocumented in this encounter"
--- OUTSIDE RECORDS SUMMARY | ~2019-05-03 | XMS | Encounter Summary ---
Demographics + + + | Address | [address] | | | [place] [address] | + + + | Home Phone [...] | | | | | [place] [address] | | + + + + + Care Team Providers + +------+ + | Care Environmental Protection Economist Name | Role | Phone | + +------+ + PCP | Unavailable | + +------+ + Encounter Details +--------+ + + + + | Date | Type | Department | Care Team | Description | +--------+ + + + + | 10/22/ | Respiratory | | Other, Faculty | | | 2006 | Therapy | | [phone] | | +--------+ + + + + [...] [facility] | [address] | [place], [place] | | | DIAGNOSTICS - | [place] | [address] | | | PULMONARY FUNCTION | | | | + + + + + documented in this encounter Visit Diagnoses Not on filedocumented in this encounter"
--- OUTSIDE RECORDS SUMMARY | ~2019-05-03 | XMS | Encounter Summary ---
Demographics + + + | Address | [address] | | | [place] [address] | + + + | Home Phone [...] | | | | | [place] [address] | | + + + + + | Robson Min | ECON | Unknown | | + + + + + | Isabella Whitehead | ECON | Unknown | | + + + + + Care Team Providers + +------+ + | Care Table Inspector Name | Role | Phone | [...] [address] | | | | | [phone] | [place] [address] | | +--------+ + + + + [...] [place] | | | | | | [address] | | | | | | | | +--------+---------+ + + + | 07/26/ | Office | Pulmonology | Navdeep Grande, | | | 2019 | Visit | | [address] | | | | | | [place] | | | | | | [address] | | | | | | | | +--------+---------+ + + + documented as of this encounter Procedures + +--------+ + + + | Procedure Name | Priori | Date/Time | Associated Diagnosis | Comments | | | ty | | | | + +--------+ + + + | CT HEAD WO CONTRAST | Routin | 08/08/2017 | | Results for this | | | e | 11:20 AM | | procedure are in the | | | | PDT | | results section. | + +--------+ + + + documented in this encounter Results CT Head wo Contrast (08/08/2017 11:20 AM PDT) + + | Specimen | [...]
--- OUTSIDE RECORDS SUMMARY | ~2019-05-03 | XMS | Encounter Summary ---
Demographics + + + | Address | [address] | | | [place] [address] | + + + | Home Phone | | + + + | Preferred Language | Unknown | + + + | Marital Status | Single | + + + | Bahai Affiliation | Unknown | + + + | Race | Unknown | + + + | Ethnic Group | Unknown | + + + Author + + + | Author | [facility] | | | and [place] | + + + | Organization | [facility] | | | [...] | | | | | [place] [address] | | + + + + + | Robson Min | ECON | Unknown | | + + + + + | Isabella Whitehead | ECON | Unknown | | + + + + + Care Team Providers + +------+ + | Care Filer Metal Patterns Name | Role | Phone | + +------+ + | Bart Ba DO | PCP | | + +------+ + Encounter Details +--------+ + + + + | Date | Type | Department | Care Team | Description | +--------+ + + + + | 08/25/ | Hospital | [facility] | Navdeep Grande, | COPD (chronic | | 2013 | Encounter | MED CTR PULMONARY | MD [address] | obstructive | | | | FUNCTION [address] | [place], [place] | pulmonary disease) | | | | [place], | [address] | ([facility]) | | | | [place] [address] | | | | | | [phone] | | | +--------+ + + + [...] | 0 | 10/08/19 | | | xukqirbcpu-zbffqjl-z | every 6 hours as | | [...] | | Inhale 1 puff into | | 0 | | | | fluticasone-salmeter | the lungs Twice | | | | 5 | | ol (ADVAIR) 100-50 | Daily. | | | | | | mcg/puff diskus | | | | | | [...] [place] | | | | | | [address] | | | | | | | | +--------+---------+ + + + | 07/26/ | Office | Pulmonology | Navdeep Grande, | | | 2019 | Visit | | [address] | | | | | | [place] | | | | | | [address] | | | | | | | | +--------+---------+ + + + documented as of this encounter Procedures + +--------+ + + + | Procedure Name | Priori | Date/Time | Associated Diagnosis | Comments | | | ty | | | | + +--------+ + + + | PFT PULMONARY | LARS | 08/25/2013 | COPD (chronic | Results for this | | FUNCTION TESTING | | 3:51 PM | obstructive | procedure are in the | | ORDERS | | PDT | pulmonary disease) | results section. | | | | | ([facility]) | | + +--------+ + + + | PFT PULMONARY | LARS | 08/25/2013 | COPD (chronic | Results for this | | FUNCTION TESTING | | 3:51 PM | obstructive | procedure are in the | | ORDERS | | PDT | pulmonary disease) | results section. | | | | | (HCC) | | + +--------+ + + + | PFT PULMONARY | LARS | 08/25/2013 | COPD (chronic | Results for this | | FUNCTION TESTING | | 3:51 PM | obstructive | procedure are in the | | ORDERS | | PDT | pulmonary disease) | results section. | | | | | (HCC) | | + +--------+ + + + | PFT PULMONARY | LARS | 08/25/2013 | COPD (chronic | Results for this | | FUNCTION TESTING | | 3:51 PM | obstructive | procedure are in the | | ORDERS | | PDT | pulmonary disease) | results section. | | | | | (HCC) | | + +--------+ + + + | DIAGNOSTIC REPORT - | | 08/25/2013 | | | | EXTERNAL SCAN | | 12:00 AM | | | | | | PDT | | | + +--------+ + + + | DIAGNOSTIC REPORT - | | 08/25/2013 | | | | EXTERNAL SCAN | | 12:00 AM | | | | | | PDT | | | + +--------+ + + + documented in this encounter Results PFT PULMONARY FUNCTION TESTING ORDERS Full PFT (Juan Daniel w/BD, lung volumes, diffusion)?: Yes; Rest and [...] signed by: Navdeep Grande MD 08/25/2013 15:49 [facility] | | | [facility] | | + + + + + [...] by: | | Navdeep Grande MD 08/25/2013 15:49[facility] | |IMPRESSION: Spirometry is consistent with normal physiology. Lung volume testing is consist ent with normal physiology. Diffusion capacity is mildly reduced and was not corrected for m easured hemoglobin. | | | |No prior pulmonary function tests available for comparison | | | |Test performed: 08/25/13 | |Electronically signed by: Navdeep Grande MD 08/25/2013 15:49 | |[facility] | + + documented in this encounter Visit Diagnoses + + | Diagnosis | + + | COPD (chronic obstructive pulmonary disease) (HCC) Chronic airway obstruction, not | | elsewhere classified | + + documented in this encounter"
--- OUTSIDE RECORDS SUMMARY | ~2019-05-03 | XMS | Encounter Summary ---
Demographics + + + | Address | [address] | | | [place] [address] | + + + | Home Phone | | + + + | Preferred Language | Unknown | + + + | Marital Status | Single | + + + | Gnosticist Affiliation | Unknown | + + + | Race | Unknown | + + + | Ethnic Group | Unknown | + + + Author + + + | Author | [facility] | | | and [place] | + + + | Organization | [facility] | | [...] | | | | | [place] [address] | | + + + + + | Robson Min | ECON | Unknown | | + + + + + | Isabella Whitehead | ECON | Unknown | | + + + + + Care Team Providers + +------+ + | Care Practice Assistant Name | Role | Phone | [...] Medicine | Nocturnal | Neno Thong | [place] [address] | | | Required | | hypoxia | MD Srinivas [address] | [address] | | | | | Chronic | [address] | [place], | | | | | obstructive | [facility] | [place] [address] | | | | | pulmonary | [place], [place] | Phone: | | | | | disease, | [address] | [phone] | | | | | unspecified | Phone: | Fax: | | | | | COPD type | [phone] | [phone] | | | | | (HCC) | Fax: | | | | | | Procedures | [phone] | | | | | | [place] POLYSOM | | | | | | [...] + + | 10/12/ | Office | [facility] | Neno Walker | Nocturnal hypoxia | | 2019 | Visit | SLEEP DISORDER [address] | MD Srin[address] [place] | (Primary Dx); | | | | [address] [place] | [address] [place] | Chronic obstructive | | | | [place] [address] | [place] [address] | pulmonary disease, | | | | [phone] | [phone] | unspecified COPD | | | | [...] PDTThis patient was felt to have severe vascular surgery physician sandy obstructive pulmonary disease comes in for [...] breaths does not meet criteria for an nutritionist public health ea or hypopnea. Sleep Architecture: Lights out [...] obstructive apneas, 0 mixed apneas, 0 central nutritionist public health eas, 22 hypopneas, and 12 Respiratory Effort [...] signed by: Navdeep Grande MD 09/22/2018 14:54 [facility] BP 110/80 | Pulse 95 | Resp [...] [place] | | | | | | [address] | | | | | | | | +--------+---------+ + + + | 07/26/ | Office | Pulmonology | Navdeep Grande, | | 2019 | Visit | | MD [address] | | | | | | [place] | | | | | | [id number] | | | | | | | | +--------+---------+ + + + + + +--------+ + + | Name | Type | Priori | Associated Diagnoses | Order Schedule | | | | ty | | | + + +--------+ + + | * [facility] - | Outpatient | Routin [...]
--- OUTSIDE RECORDS SUMMARY | ~2019-05-03 | XMS | Encounter Summary ---
Demographics + + + | Address | [address] | | | [place] [address] | + + + | Home Phone [...] | | | | | [place] [address] | | + + + + + | Robson Min | ECON | Unknown | | + + + + + | Isabella Whitehead | ECON | Unknown | | + + + + + Care Team Providers + +------+ + | Care Senior Microsoft Net Developer Name | Role | Phone | [...] | | | | | | | [address] | | | | | | | Phone: | | | | | | | [phone] | | | | | | | Fax: | | | | | | | [phone] | | +--------+--------+ + + + + [...] | | Required | | Disorientati | [address] | [address] | | | | | on, | [address] | [place] | | | | | unspecified | [address] | [place] | | | | | Procedures | 3[address]106 | [address] Phone: | | | | | Specialty | [place] | [phone] | | | | | Services | [address] | Fax: | | | | | Required | Phone: | [phone] | | | | | | [phone] | | +--------+ + + + + [...] without coma, | | | | [place] [address] | | without long-term | | | | [phone] | | current use of | | [...] be different from the original. Patient Instructions [facility] Neurology Clinic Dr. Jimbo Samayoa, Neurologist Date:02/23/2018 Name:Kait Patel Pako :..1970 Please schedule next follow up appt [...] le, and scrabble, other puzzle games like Sudoku, Mahjong. Play computer/mobile applications such as [employer] and MIND GAMES Avoid sleep deprivation, alcohol, stimulants, or any type of head trauma Any Questions please call MARTHA Matthew or Dr. Samayoa at [facility] Neurology Clinic Altered Level of Consciousness [...] return New symptoms appear Date Last Reviewed: 12/09/201419990393-1165 [employer]. [address] [place] [address]. All righ ts reserved. This information is [...] joint. Hot and cold packs may help. Ttjq-dnq-tjwldse and prescription medicines can be ve ry helpful for arthritis. Talk with your healthcare provider about the best treatments for y our condition. Date Last Reviewed: 08/17/201619998572-7954 [employer]. [address] [place] [address], [place] [address]. All righ ts reserved. This information is [...] you take. This includes prescription an d kiuc-fyp-wwfhdsk medicines, vitamins, and herbs. Ask if any of the medicines may be causin g your problems. Don't make any changes to prescription medicines without talking to your he [facility] provider first. You may be prescribed [...] speaking, walking, or seeing Date Last Reviewed: 06/17/201719992208-5351 [employer]. [address] [place] [address]. All [facility] ts reserved. This information is not intended [...] massage, and other methods. Date Last Reviewed: 04/19/201719995394-8522 [employer]. [address] [place] [address], [place] [address]. All [facility] ts reserved. This information is not intended [...] acupuncture, massage, and others. Date Last Reviewed: 03/19/201719996465-3893 [employer]. [address] [place] [address], [place] [address]. All righ ts reserved. This information is [...] | 2019 | Visit | | [address] | | | | | | [place] | | | | | | [address] | | | | | | | | +--------+---------+ + + + | 07/26/ | Office | Pulmonology | Navdeep Grande, | | | 2019 | Visit | | [address] | | | | | | [place] | | | | | | [address] | | | | | | | [...]
--- OUTSIDE RECORDS SUMMARY | ~2019-05-03 | XMS | Encounter Summary ---
Demographics + + + | Address | [address] | | | [place] [address] | + + + | Home Phone [...] | | | | | [place] [address] | | + + + + + | Robson Min | ECON | Unknown | | + + + + + | Isabella Whitehead | ECON | Unknown | | + + + + + Care Team Providers + +------+ + | Care Cloud Systems Administrator Name | Role | Phone | + [...] Zhou PEARSON | | | | | [phone] | [place] [address] | | +--------+ + + + + [...] [place] | | | | | | [address] | | | | | | | | +--------+---------+ + + + | 07/26/ | Office | Pulmonology | Navdeep Grande, | | | 2019 | Visit | | [address] | | | | | | [place] | | | | | | [address] | | | | | | | [...]
--- OUTSIDE RECORDS SUMMARY | ~2019-05-03 | XMS | Encounter Summary ---
Demographics + + + | Address | [address] | | | [place] [address] | + + + | Home Phone [...] Author + + + | Author | [facility] | + + + | Organization | [facility] | + + + | Address | Unknown | + + + | Phone | Unavailable | + + + Support + + + + + | Name | Relationship | Address | Phone | + + + + + | Scot Johnson | ECON | [address] | | | | | [place] [address] | | + + + + + Care Team Providers + +------+ + | Care Supervisor Air Conditioning Installer Name | Role | Phone | + +------+ + | Bart Ba DO | PCP | | + +------+ + Encounter Details +--------+ + + + + | Date | Type | Department | Care Team | Description | +--------+ + + + + | 10/28/ | DELETED | Preoperative | Consult, | ANESTHESIA/SEDATION | | 2005 | TRANSCRIPTI | Medicine Clinic at | Anesthesia [address] | | | | ON | [facility] 4th Floor [address] | [address] | | | | | [address] [facility] | Road [place], [place] | | | | | Mailcode: CH4S | [address] | | | | | [facility] | | | | | | and Healing, | | | | | | Building 1,4th Floor | | | | | | [place], [place] | | | | | | [address] | | | | | | [phone] | | | +--------+ + + + [...]
--- OUTSIDE RECORDS SUMMARY | ~2019-05-03 | XMS | Encounter Summary ---
Demographics + + + | Address | [address] | | | [place] [address] | + + + | Home Phone [...] | | | | | [place] [address] | | + + + + + Care Team Providers + +------+ + | Care Superintendent Transportation Name | Role | Phone | + +------+ + PCP | Unavailable | + +------+ + Encounter Details +--------+ + + + + | Date | Type | Department | Care Team | Description | +--------+ + + + + | 10/29/ | Respiratory | | Other, Faculty | | | 2006 | Therapy | | [phone] | | +--------+ + + + + [...] [facility] | [address] | [place] | | | DIAGNOSTICS - | [address] | [address] | | | PULMONARY FUNCTION | | | | + + + + + documented in this encounter Visit Diagnoses Not on filedocumented in this encounter"
--- OUTSIDE RECORDS SUMMARY | ~2019-05-03 | XMS | Encounter Summary ---
Demographics + + + | Address | [address] | | | [place] [address] | + + + | Home Phone [...] + + + | Author | [facility] | + + + | Organization | [facility] | + + + | Address | Unknown | + + + | Phone | Unavailable | + + + Support + + + + + | Name | Relationship | Address | Phone | + + + + + | Scot Johnson | ECON | [address] | | | | | [place] [address] | | + + + + + Care Team Providers + +------+ + | Care [employer] Name | Role | Phone | + [...] Clinic | | | | | | [facility], [address] | | | | | | [place], [place] | | | | | | [address] | | | | | | [phone] | | | +--------+ + + + [...] | + + + + + | [facility] DEPARTMENT OF | [address] | [place] [address] | | | PATHOLOGY | [address] | | | + + + + + | [facility] DEPARTMENT OF | [facility] [address] | [place] [address] | | | PATHOLOGY | [address] [...] + + + | [facility] | [address] | [place] [address] | | | LAB-MICRO | | | | + + + + + documented in this encounter Visit Diagnoses Not on filedocumented in this encounter"
--- OUTSIDE RECORDS SUMMARY | ~2019-05-03 | XMS | Encounter Summary ---
Demographics + + + | Address | [address] | | | [place] [address] | + + + | Home Phone [...] | | | | | [place] [address] | | + + + + + | Robson Min | ECON | Unknown | | + + + + + | Isabella Whitehead | ECON | Unknown | | + + + + + Care Team Providers + +------+ + | Care Gameplay Programmer Name | Role | Phone | [...] [address] | | | | | [place], | [place] | | | | | [place] [address] | [address] | | | | | [phone] | | | +--------+--------+ + + + [...] [place] | | | | | | [address] | | | | | | | | +--------+---------+ + + + | 07/26/ | Office | Pulmonology | Navdeep Grande, | | | 2019 | Visit | | MD [address]ely [address] | | | | | | [place] | | | | | | [address] | | | | | | | | +--------+---------+ + + + documented as of this encounter Visit Diagnoses Not on filedocumented in this encounter"
--- OUTSIDE RECORDS SUMMARY | ~2019-05-03 | XMS | Encounter Summary ---
Demographics + + + | Address | [address] | | | [place] [address] | + + + | Home Phone [...] | | | | | [place] [address] | | + + + + + [...] | | 2006 | Therapy | | [phone] | | +--------+ + + + + [...] [place], | | | | | | FUNERAL GREETER | | | | + + + [...] [facility] | [address] | [place] | | | DIAGNOSTICS - | [address] | [address] | | | PULMONARY FUNCTION | | | | + + + + + documented in this encounter Visit Diagnoses Not on filedocumented in this encounter"
--- OUTSIDE RECORDS SUMMARY | ~2019-05-03 | XMS | Encounter Summary ---
Demographics + + + | Address | [address] | | | [place] [address] | + + + | Home Phone | | + + + | Preferred Language | Unknown | + + + | Marital Status | Single | + + + | Christian Affiliation | Unknown | + + + | Race | Unknown | + + + | Ethnic Group | Unknown | + + + Author + + + | Author | [facility] | | | and [place] | + + + | Organization | [facility] | | | [...] | | | | | [place] [address] | | + + + + + | Robson Min | ECON | Unknown | | + + + + + | Isabella Whitehead | ECON | Unknown | | + + + + + Care Team Providers + +------+ + | Care Spring Setter Name | Role | Phone | [...] [address] | [place], [place] | | | | | DR [place]AC[place], | [address] | | | | | [place] [address] | | | | | | [phone] | | | +--------+ + + + [...] [place] | | | | | | [address] | | | | | | | | +--------+---------+ + + + | 07/26/ | Office | Pulmonology | GrandeNavdeep lopez, | | | 2019 | Visit | | MD Cely [address]ORE | | | | | | [place] | | | | | | [address] | | | | | | | | +--------+---------+ + + + documented as of this encounter Visit Diagnoses Not on filedocumented in this encounter"
--- OUTSIDE RECORDS SUMMARY | ~2019-05-03 | XMS | Encounter Summary ---
Demographics + + + | Address | [address] | | | [place] [address] | + + + | Home Phone [...] | | | | | [place] [address] | | + + + + + | Robson Min | ECON | Unknown | | + + + + + | Isabella Whitehead | ECON | Unknown | | + + + + + Care Team Providers + +------+ + | Care Butter Melter Name | Role | Phone | + [...] Medicine | JESUSITA | Neno Thong | [place] [address] [address] | | | Required | | (obstructive | [address] | [address] | | | | | sleep | [facility] | [place], | | | | | apnea) | [facility] | [place] [address] | | | | | Nocturnal | [place], [place] | Phone: | | | | | oxygen | [address] | [phone] | | | | | desaturation | Phone: | Fax: | | | | | E66.2 | [phone] | [phone] | | | | | (ICD-10-CM) | Fax: | | | | | | - 278.03 | [phone] | | | | | | (ICD-9-CM) [...] | | | | | | | [place] POLYSOM | | | | | | [...] + + | 09/21/ | Hospital | [facility] | Neno Walker | JESUSITA (obstructive | | 2019 - | Encounter | MED CTR SLEEP | Jr., MD [address] | sleep apnea); | | | | CENTER [address] | [address] [place] | Obesity | | 09/22/ | | [place], [place] | [place] [address] | hypoventilation | | 2019 | | [address] | [phone] | syndrome (HCC); | | | | [phone] | | Nocturnal oxygen | | | [...] [place] | | | | | | [address] | | | | | | | | +--------+---------+ + + + | 07/26/ | Office | Pulmonology | Navdeep Grande, | | | 2019 | Visit | | [address] | | | | | | [place] | | | | | | [address] | | | | | | | [...] [facility] | | | [place] [address] | | | Polysomnogram Report on Kait [...] | | | Neno Walker Jr., MD, [facility]ITALSMMedical DirectorMelly Doll | | | [facility] | | | [place] CooleyClinical Rn Ed of MedicineBlue Mountain Hospital, Inc[facility] | | | [place], [place] | | |The kimmy oxygen saturation [...] | | | |Neno Walker Jr., MD, [facility] | | |Scanner Supervisor | | |[facility] | | |[facility] | | |[place], [place] | | |Clinical reliability manager | | |[facility] | | |[place], [place] | | + + + + + | Procedure Note | + + | Neno Walker Jr., MD - 09/30/2018 10:38 AM PDT [facility] | | Disorders [place] [address]Tjvbftpydlxje Report on | | Kait Min performed [...] | | COPD.Neno Walker Jr., MD, FAASMMedical DirectorSt. Anthony'S Healthcare Center Sleep | | Disorders CenterProRancho Santa Margarita, WAClinical Associate | | Professor of MedicineStaten [place], [place] | |Scanner Supervisor | |[facility] Disorders Center | |[facility] | |[place], [place] | |Clinical reliability manager | |[facility] | |[place], [place] | + + POC Blood Gases [...] [address] | [place] | [phone] | | [facility] | | [address] | | | - LABORATORY | | [...]
--- OUTSIDE RECORDS SUMMARY | ~2019-05-03 | XMS | Encounter Summary ---
Demographics + + + | Address | [address] | | | [place] [address] | + + + | Home Phone [...] | | | | | [place] [address] | | + + + + + | Robson Min | ECON | Unknown | | + + + + + | Isabella Whitehead | ECON | Unknown | | + + + + + Care Team Providers + +------+ + | Care Baggage Checker Name | Role | Phone | + [...] Zhou PEARSON | | | | | [phone] | [place] [address] | | +--------+ + + + + [...] [place] | | | | | | [address] | | | | | | | | +--------+---------+ + + + | 07/26/ | Office | Pulmonology | Navdeep Graned, | | | 2019 | Visit | | [address] | | | | | | [place] | | | | | | [address] | | | | | | | | +--------+---------+ + + + documented as of this encounter Procedures + +--------+ + + + | Procedure Name | Priori | Date/Time | Associated Diagnosis | Comments | | | ty | | | | + +--------+ + + + | XR CHEST 1 VIEW | Routin | 08/15/2018 | | Results for this | | | e | 5:25 PM | | procedure are in the | | | | PDT | | results section. | + +--------+ + + + documented in this encounter Results XR Chest 1 Vw (08/15/2018 5:25 PM PDT) + + | Specimen | [...]
--- OUTSIDE RECORDS SUMMARY | ~2019-05-03 | XMS | Encounter Summary ---
Demographics + + + | Address | [address] | | | [place] [address] | + + + | Home Phone | | + + + | Preferred Language | Unknown | + + + | Marital Status | Single | + + + | Baptist Affiliation | Unknown | + + + | Race | Unknown | + + + | Ethnic Group | Unknown | + + + Author + + + | Author | [facility] | | | and [place] | + + + | Organization | [facility] | | | [...] | | | | | [place] [address] | | + + + + + | Robson Min | ECON | Unknown | | + + + + + | Isabella Whitehead | ECON | Unknown | | + + + + + Care Team Providers + +------+ + | Care Community Development Officer Name | Role | Phone [...] | Abnormal | MD Navdeep | [address] | | | | | chest CT | [address] | [place], | | | | | Procedures | [place] | [place] [address] | | | | | CT Chest wo | [place], | Phone: | | | | | Contrast | [place] [address] | [phone] | | | | | | Phone: | Fax: | | | | | | [phone] | [phone] | | | | | | Fax: | | | | | | | [phone] | | +--------+--------+ + + + + Reason for Visit +--------+ + | Reason | Comments | +--------+ + | COPD | | +--------+ + Encounter Details +--------+---------+ + + + | Date | Type | Department | Care Team | Description | +--------+---------+ + + + | 09/06/ | Office | [facility] | Navdeep Grande, | Abnormal chest CT | | 2013 | Visit | PULMONARY [address] | MD [address] | (Primary Dx); | | | | [place], | [place], [place] | Chronic bronchitis; | | | | [place] [address] | [address] | Other nonspecific | | | | [phone] | | abnormal finding of | | [...] Lumbago Nocturia Pyoderma gangreosum-LE Bipolar 1 disorder ([facility]) Hypertension Lymphedema Nausea and vomiting Reflux esophagitis GI bleeding Empyema lung ([facility]) 2005 right Knee pain CHRONIC TENSION HEADACHE [...] 4 times daily., Disp: , Rfl: ; hcmbzwbtxt-ovcebeb-vovjjwng (BUTALBITA L COMPOUND/ASA) per tablet, One tablet [...] [place] | | | | | | [address] | | | | | | | | +--------+---------+ + + + | 07/26/ | Office | Pulmonology | Navdeep Grande, | | | 2019 | Visit | | MD [address]ely [address]ORE | | | | | | [place] | | | | | | [address] | | | | | | | [...] + | MISCELLANEOUS LAB | | | [phone] | + +---------+ + + | MISCELANIOUS LAB | | | [phone] | + +---------+ + + documented in [...]
--- OUTSIDE RECORDS SUMMARY | ~2019-05-03 | XMS | Encounter Summary ---
Demographics + + + | Address | [address] | | | [place] [address] | + + + | Home Phone | | + + + | Preferred Language | Unknown | + + + | Marital Status | Single | + + + | Christian Affiliation | CHR | + + + | Race | White | + + + | Ethnic Group | Not or | + + + Author + + + | Author | [facility] | + + + | Organization | [facility] | + + + | Address | Unknown | + + + | Phone | Unavailable | + + + Support + + + + + | Name | Relationship | Address | Phone | + + + + + | Scot Johnson | ECON | [address] | | | | | [place] [address] | | + + + + + Care Team Providers + +------+ + | Care Customer Operations Intern Name | Role | Phone | + +------+ + | Bart Ba DO | PCP | | + +------+ + Encounter Details +--------+ + + + + | Date | Type | Department | Care Team | Description | +--------+ + + + + | 03/28/ | Abstract | Neurology at | Unknown . | | | 2018 | | [facility] & | | | | | | Healing [address] | | | | | | Aleks Hanna Mailcode: | | | | | | [id number] | | | | | | Health and Healing, | | | | | | | | | | | | [place], [place] | | | | | | [address] | | | | | | [phone] | | | +--------+ + + + [...]
--- OUTSIDE RECORDS SUMMARY | ~2019-05-03 | XMS | Encounter Summary ---
Demographics + + + | Address | [address] | | | [place] [address] | + + + | Home Phone [...] | | | | | [place] [address] | | + + + + + | Robson Min | ECON | Unknown | | + + + + + | Isabella Whitehead | ECON | Unknown | | + + + + + Care Team Providers + +------+ + | Care After School Teacher Name | Role | Phone [...] Zhou PEARSON | | | | | [phone] | [place] [address] | | +--------+ + + + + [...] [place] | | | | | | [address] | | | | | | | | +--------+---------+ + + + | 07/26/ | Office | Pulmonology | Navdeep Grande, | | | 2019 | Visit | | [address] | | | | | | [place] | | | | | | [address] | | | | | | | [...]
--- OUTSIDE RECORDS SUMMARY | ~2019-05-03 | XMS | Encounter Summary ---
Demographics + + + | Address | [address] | | | [place] [address] | + + + | Home Phone | | + + + | Preferred Language | Unknown | + + + | Marital Status | Single | + + + | Religion Affiliation | Unknown | + + + [...] | | | | | [place] [address] | | + + + + + | Robson Min | ECON | Unknown | | + + + + + | Isabella Whitehead | ECON | Unknown | | + + + + + Care Team Providers + +------+ + | Care Artificial Flowers Starcher Name | Role | Phone | + [...] Closed | | Radiology | Diagnoses | [place], | OP ST | | | | | Esophageal | MD Cecilio | AVEL | | | | | reflux | [address] [facility] | | | | | Abdominal | BLVD | [address] | | | | | pain, | [place], [place] | AVE | | | | | generalized | [address] | [place] | | | | | Procedures | Phone: | [address] | | | | | NM Gastric | [phone] | Phone: | | | | | Emptying | Fax: | [phone] | | | | | | [phone] | Fax: | | | | | | | [phone] | +--------+--------+ + + + + Reason for Visit + + + | Reason | Comments | + + + | Abdominal Pain | | + + + | Nausea | | + + + | Emesis | | + + + Evaluate & Treat (Routine) +--------+--------+ + + + + | Status | Reason | Specialty | Diagnoses / | Referred By | Referred To | | | | | Procedures | Contact | Contact | +--------+--------+ + + + + | Closed | | Gastroenterol | Diagnoses | Mejia, | [place], | | | | ogy | Irritable | Bart Bell DO | MD Cecilio | | | | | bowel | [id number] | [address] | | | | | syndrome | [address] | [place], | | | | | Other | [place] | [place] [address] | | | | | specified | [address] | Phone: | | | | | gastritis | [place], [place] | [phone] | | | | | with | [address] | Fax: | | | | | hemorrhage | Phone: | [phone] | | | | | Unspecified | [phone] | | | | | | gastritis | | | | | | | and | | | | | | | gastroduoden | | | | | | | itis with | | | | | | | hemorrhage | | | | | | | ibs/ | | | | | | | recurrent gi | | | | | | | | | | | | | | bleed/gerd/p | | | | | | | cp | | | | | | | walker/cs&eg | | | | | | | d @sah 2012 | | | | | | | dr | | | | | | | kimi/rozinaa | | | | | | | Procedures | | | | | | | NEW PATIENT | | | +--------+--------+ + + + + Encounter Details +--------+---------+ + + + | Date | Type | Department | Care Team | Description | +--------+---------+ + + + | 09/20/ | Office | [facility] | Cecilio Amato MD | Abdominal pain, | | 2013 | Visit | GASTROENTEROLOGY | [address] | generalized (Primary | | | | [address] | [place], [place] | Dx); Esophageal | | | | [address] | [address] | reflux | | | | [address] | [phone] | | | | | [phone] | | | +--------+---------+ + + + [...] + + + | Blood Pressure | 116/80 | 09/20/2013 1:55 PM | | | | | PDT | | + + + + + | Pulse | 80 | 09/20/2013 1:55 PM | | | | | PDT | | + + + + + | Temperature | 36.9 C (98.5 F) | 09/20/2013 1:55 PM | | | | | PDT | | + + + + + | Respiratory Rate | 16 | 09/20/2013 1:55 PM | | | | | PDT | | + + + + + | Oxygen Saturation | - | - | | + + + + + | Inhaled Oxygen | - | - | | | Concentration | | | | + + + + + | Weight | 100.7 kg (222 lb) | 09/20/2013 1:55 PM | | | | | PDT | | + + + + + | Height | 167.6 cm (5' 6") | 09/20/2013 1:55 PM | | | | | PDT | | + + + + + | Body Mass Index | 35.83 | 09/20/2013 1:55 PM | | | | | PDT | | + + + + + documented in this encounter Progress Notes Cecilio Amato MD - 09/20/2013 2:47 PM PDT Subjective: Patient ID: Kait Min is a 43 y.o. female. HPI Current Outpatient Prescriptions on File Prior to Visit Medication Sig Dispense Refill albuterol (VENTOLIN HFA) 90 mcg/puff inhaler Inhale 2 puffs into the lungs every 4 hour s as needed. azaTHIOprine (AZASAN) 75 MG TABS Take 50 mg by mouth 4 times daily. rmgzocpmud-ohdfuga-myiwgmmd (BUTALBITAL COMPOUND/ASA) per tablet One tablet by mouth ev emily 6 hours as needed for migraine ergocalciferol (VITAMIN D-2) 50,000 units capsule Take [...] tablet Take 25 mg by mouth Daily. promethazine (PHENERGAN) 25 mg tablet Take 25 [...] Wrist pain Diabetes mellitus, type 2 ([facility]) Vitamin D deficiency Hypercholesterolemia Hypothyroidism Panic anxiety syndrome IBS (irritable bowel syndrome) Restless leg syndrome Urinary hesitancy Lumbago Nocturia Pyoderma gangreosum-LE Bipolar 1 disorder ([facility]) Hypertension Lymphedema Nausea and vomiting Reflux esophagitis GI bleeding Empyema lung ([facility]) 2005 right Knee pain CHRONIC TENSION HEADACHE [...] Systems Constitutional: Positive for unexpected weight change. 100 lb weight loss over 1-2 years HENT: Negative. Eyes: Negative. Respiratory: Negative. Cardiovascular: Negative. Gastrointestinal: Nausea, emesis; abdominal pain; diarrhea, constipation Genitourinary: Negative. Musculoskeletal: Negative. Neurological: Negative. Hematological: Negative. Objective: Physical Exam Constitutional: She is oriented to person, place, and time. She appears well-developed and well-nourished. HENT: Head: Normocephalic and atraumatic. Eyes: Conjunctivae normal are normal. Cardiovascular: Normal rate, regular rhythm and normal heart sounds. Pulmonary/Chest: Effort normal and breath sounds normal. Abdominal: Soft. Bowel sounds are normal. She exhibits no distension and no mass. There is no tenderness. There is no rebound and no guarding. Neurological: She is alert and oriented to person, place, and time. Skin: Skin is warm and dry. Psychiatric: She has a normal mood and affect. Her behavior is normal. Judgment and thought content normal. Assessment: This office note has been dictated. Plan: This office note has been dictated. Cecilio Ramos MD - 0 09/20/2013 12:00 AM [facility] GASTROENTEROLOGY [address] [address] FAX: [phone] OFFICE VISIT CHIEF COMPLAINT: Abdominal pain. HISTORY OF PRESENT ILLNESS: This is a 43-year-old white female with history of rheumatoid arthritis and irritable bowel syndrome who complains of abdominal pain for 5 years. The rocío ent describes abdominal pain as usually left lower quadrant and left upper quadrant, but so metimes can be right lower quadrant as well. The pain is not worse by anything in particula r and is unaffected by eating. The pain is better with a heating pad and sometimes with bow el movements. There is no melena or hematochezia, but she does have alternating constipatio n and diarrhea. The patient has lost approximately 100 pounds in the past few years; geronimo salazar, has been eating less and trying to get her diabetes under control. She quit drinking alc ohol and does smoke cigarettes but is trying to quit. Reflux symptoms are somewhat controll ed with Zantac twice a day. However, she does have breakthrough symptoms at times. Her cons tipation is partially controlled with Amitiza, which she takes only once a day. The patient underwent colonoscopy and upper endoscopy last year by Dr. Marino, which were unremarkable. Biopsies of the jejunum, duodenal bulb and the gastric antrum were unremarkable with H. py dhaval negative. Recent CT scan revealed no abnormalities with IV and p.o. contrast. ASSESSMENT AND PLAN ABDOMINAL PAIN: Workup today has been unremarkable with negative EGD and colonoscopy and CT scan. Labs have been unremarkable as well. I suspect that most of her abdominal pain is du e to colon spasm and irritable bowel syndrome. Will start her on Bentyl 10 mg p.o. q.6-8 ho urs as needed for abdominal pain. If pain worsens, can give her tramadol but have advised h er to stop all nonsteroidal anti-inflammatory medications since these can affect the gastro intestinal tract. No need at this time to repeat EGD or colonoscopy or for further evaluati on of abdominal pain unless symptoms worsen. 2. CONSTIPATION: Will increase Amitiza to twice a day. 3. GASTROESOPHAGEAL REFLUX DISEASE: The patient is still having significant breakthrough s ymptoms on Zantac twice a day. Will stop Zantac and start Prilosec 20 mg p.o. q.a.m. 30 min utes before breakfast. 4. NAUSEA AND VOMITING: The patient states she has a hard time keeping food down and attrib utes a lot of her weight loss to persistent nausea and vomiting. As noted, upper endoscopy recently was unremarkable with negative biopsies. Possibilities include nonulcer dyspepsia , functional disorder, as well as gastroparesis, especially since the patient does have luli betes. Will order a gastric emptying study to evaluate for gastroparesis and have discussed small volume low-fat diet with the patient. 5. DIARRHEA: Most likely due to her irritable bowel; however, will check celiac panel. Cecilio Amato MD / SABIHA JOB #: [id number] signed by Cecilio Amato MD at 09/20/2013 4:35 PM PDTdocument ed in this encounter Plan [...] [place] | | | | | | [address] | | | | | | | | +--------+---------+ + + + | 07/26/ | Office | Pulmonology | Navdeep Grande, | | | 2019 | Visit | | [address] | | | | | | [place] | | | | | | [address] | | | | | | | | +--------+---------+ + + + + +---------+--------+ + + | Name | Type | Priori | Associated Diagnoses | Order Schedule | | | | ty | | | + +---------+--------+ + + | NM Gastric Emptying | Imaging | Routin | Abdominal pain, | Expected: | | | | e | generalized | 09/20/2013, Expires: | | | | | Esophageal reflux | 09/20/2014 | + +---------+--------+ + + | Celiac Panel, | Lab | Routin | Abdominal pain, | 1 Occurrences | | Extended | | e | generalized | starting 09/20/2013 | | | | | Esophageal reflux | until 09/20/2014 | + +---------+--------+ + + documented as of this encounter Visit Diagnoses + + | Diagnosis | + + | Abdominal pain, generalized - Primary | + + | Esophageal reflux | + + documented in this encounter
--- OUTSIDE RECORDS SUMMARY | ~2019-05-03 | XMS | Encounter Summary ---
Demographics + + + | Address | [address] | | | [place] [address] | + + + | Home Phone [...] | | | | | [place] [address] | | + + + + + | Robson Min | ECON | Unknown | | + + + + + | Isabella Whitehead | ECON | Unknown | | + + + + + Care Team Providers + +------+ + | Care Plug Grower Name | Role | Phone | + [...] [address] | | | | | [place], | [place], [place] | | | | | [place] [address] | [address] | | | | | [phone] | | | +--------+ + + + [...] [place] | | | | | | [address] | | | | | | | | +--------+---------+ + + + | 07/26/ | Office | Pulmonology | Navdeep Grande, | | | 2019 | Visit | | MD [address]ely [address] | | | | | | [place] | | | | | | [address] | | | | | | | | +--------+---------+ + + + documented as of this encounter Visit Diagnoses Not on filedocumented in this encounter"
--- OUTSIDE RECORDS SUMMARY | ~2019-05-03 | XMS | Encounter Summary ---
Demographics + + + | Address | [address] | | | [place] [address] | + + + | Home Phone [...] Author + + + | Author | [facility] | + + + | Organization | [facility] | + + + | Address | Unknown | + + + | Phone | Unavailable | + + + Support + + + + + | Name | Relationship | Address | Phone | + + + + + | Scot Johnson | ECON | [address] | | | | | [place] [address] | | + + + + + Care Team Providers + +------+ + | Care Waste Water Plant Operator Name | Role | Phone | [...] | | | | | Cathryn Feldman [place], | | | | | | [place] [address] | | | +--------+ + + + [...] | | Patient: CARLINE MIN Med Rec: [id number] Sex F Bdate: 1970 | | Date/Time Data | | Entered Into [facility] | | Anesth PostOp | | Surgery Date [id number] 10/28/05 11:05 | | Anesthesiologist BHAVANA QUIÑONES 10/28/05 11:05 | | Resident Anesthesiolog CARRIE GONZALES 10/28/05 11:05 | | | + + documented in this encounter Visit Diagnoses Not on filedocumented in this encounter"
--- OUTSIDE RECORDS SUMMARY | ~2019-05-03 | XMS | Encounter Summary ---
Demographics + + + | Address | [address] | | | [place] [address] | + + + | Home Phone [...] + + + | Author | [facility] | | | and [place] | + + + | Organization | [facility] | | | [...] | | | | | [place] [address] | | + + + + + | Robson Min | ECON | Unknown | | + + + + + | Isabella Whitehead | ECON | Unknown | | + + + + + Care Team Providers + +------+ + | Care Lace Stripper Name | Role | Phone | [...] Zhou PEARSON | | | | | [phone] | [place] [address] | | +--------+ + + + + [...] [place] | | | | | | [address] | | | | | | | | +--------+---------+ + + + | 07/26/ | Office | Pulmonology | Navdeep Grande, | | | 2019 | Visit | | [address] | | | | | | [place] | | | | | | [id number] | | | | | | | [...]
--- OUTSIDE RECORDS SUMMARY | ~2019-05-03 | XMS | Encounter Summary ---
Demographics + + + | Address | [address] | | | [place] [address] | + + + | Home Phone | | + + + | Preferred Language | Unknown | + + + | Marital Status | Single | + + + | Muslim Affiliation | CHR | + + + [...] | | | | | [place] [address] | | + + + + + Care Team Providers + +------+ + | Care Supervisor Beam Department Name | Role | Phone | + +------+ + PCP | Unavailable | + +------+ + Encounter Details +--------+ + + + + | Date | Type | Department | Care Team | Description | +--------+ + + + + | 10/23/ | Respiratory | | Other, Faculty | | | 2006 | Therapy | | [phone] | | +--------+ + + + + [...] | | GAS/HUMIDIT | STANDBY. Yo Beckford, DEPUTY CITY CLERK | | | | | Y |Yo Beckford, DEPUTY CITY CLERK | | | | + + + [...] [facility] | [address] | [place], [place] | | | DIAGNOSTICS - | [address] | [address] | | | PULMONARY FUNCTION | | | | + + + + + documented in this encounter Visit Diagnoses Not on filedocumented in this encounter"
--- OUTSIDE RECORDS SUMMARY | ~2019-05-03 | XMS | Encounter Summary ---
Demographics + + + | Address | [address] | | | [place] [address] | + + + | Home Phone [...] | | | | | [place] [address] | | + + + + + Care Team Providers + +------+ + | Care Dry Dip Worker Name | Role | Phone | [...] as of this encounter Discharge Summaries Interface, Slubber Frame Changer In - 01/21/2006 6:22 AM PDT [id number] LUZ CROWLEY [id number] Admission Date: 10/21/2005 Discharge Date: 11/03/2005 Staff Physician: Anibal Starr M.D. Principal Final Diagnosis: Right fibrothorax. Additional Diagnoses: 1. Psychogenic polydipsia. 2. Diabetes mellitus. 3. Rheumatoid arthritis. 4. Hypertension. Principal Procedure: Right thoracotomy and decortication. Additional Procedures: 1. Epidural catheter placement. 2. Endocrine consult. 3. Pain Service consult. 4. RT consult. 5. PT/OT consult. Reason for Admission: The patient was transferred [facility] from an outside hospital for management [...] 3 L of water a day. The business center manager ultimately deemed this to be a psychogenic [...] within 1 week. Valerie Stone M.D. / [id number] / [id number] / [id number] / Electronically signed by Anibal Starr 01-20-2006 04:02:17 PM documented i n this encounter Plan of Treatment Not on filedocumented as of this encounter Visit Diagnoses Not on filedocumented in this encounter"
--- OUTSIDE RECORDS SUMMARY | ~2019-05-03 | XMS | Encounter Summary ---
Demographics + + + | Address | [address] | | | [place] [address] | + + + | Home Phone [...] | | | | | [place] [address] | | + + + + + Care Team Providers + +------+ + | Care Solution Director Name | Role | Phone | + +------+ + PCP | Unavailable | + +------+ + Encounter Details +--------+ + + + + | Date | Type | Department | Care Team | Description | +--------+ + + + + | 10/29/ | Respiratory | | Other, Faculty | | | 2006 | Therapy | | [phone] | | +--------+ + + + + [...] [facility] | [address] | [place], [place] | | | DIAGNOSTICS - | [address] | [address] | | | PULMONARY FUNCTION | | | | + + + + + documented in this encounter Visit Diagnoses Not on filedocumented in this encounter"
--- OUTSIDE RECORDS SUMMARY | ~2019-05-03 | XMS | Encounter Summary ---
Demographics + + + | Address | [address] | | | [place] [address] | + + + | Home Phone | | + + + | Preferred Language | Unknown | + + + | Marital Status | Single | + + + | Anglican Affiliation | Unknown | + + + | Race | Unknown | + + + | Ethnic Group | Unknown | + + + Author + + + | Author | [facility] | | | and [place] | + + + | Organization | [facility] | | | [...] | | | | | [place] [address] | | + + + + + | Robson Min | ECON | Unknown | | + + + + + | Isabella Whitehead | ECON | Unknown | | + + + + + Care Team Providers + +------+ + | Care Naturopathic Physician Name | Role | Phone | [...] Results, Imaging | | 2018 | | [facility] | [address] | | | | | CLINIC [address] | [place] | | | | | [address] [place], | [address] | | | | | [place] [address] | | | | | | [phone] | | | +--------+ + + + [...] [place] | | | | | | [address] | | | | | | | | +--------+---------+ + + + | 07/26/ | Office | Pulmonology | Navdeep Grande, | | | 2020 | Visit | | [address] | | | | | | [place] | | | | | | [address] | | | | | | | | +--------+---------+ + + + documented as of this encounter Visit Diagnoses Not on filedocumented in this encounter"
--- OUTSIDE RECORDS SUMMARY | ~2019-05-03 | XMS | Encounter Summary ---
Demographics + + + | Address | [address] | | | [place] [address] | + + + | Home Phone [...] | | | | | [place] [address] | | + + + + + | Robson Min | ECON | Unknown | | + + + + + | Isabella Whitehead | ECON | Unknown | | + + + + + Care Team Providers + +------+ + | Care Library Clerical Assistant Name | Role | Phone | [...] Medicine | Nocturnal | Neno Thong | [address] | | | Required | | hypoxia | MD Srinivas [address] | | | | | Chronic | [address] | [place], | | | | | obstructive | [facility] | [place] [address] | | | | | pulmonary | [place], [place] | Phone: | | | | | disease, | [address] | [phone] | | | | | unspecified | Phone: | Fax: | | | | | COPD type | [phone] | [phone] | | | | | (HCC) | Fax: | | | | | | Procedures | [phone] | | | | | | NM POLYSOM | | | | | | [...] SLEEP DISORDER [address] | MD Srinivas [address] | (Primary Dx); | | | | [address] [place] | [address] [place] | Chronic obstructive | | | | [place] [address] | [place] [address] | pulmonary disease, | | | | [phone] | [phone] | unspecified COPD | | | | [...] PDTThis patient was felt to have severe wire drawing setter sandy obstructive pulmonary disease comes in for [...] breaths does not meet criteria for an oil spreader operator ea or hypopnea. Sleep Architecture: Lights out [...] obstructive apneas, 0 mixed apneas, 0 central oil spreader operator eas, 22 hypopneas, and 12 Respiratory Effort [...] signed by: Navdeep [place] MD 09/22/2018 14:54 [facility] BP 110/80 | Pulse 95 | [...] [place] | | | | | | [id number] | | | | | | | | +--------+---------+ + + + + + +--------+ + + | Name | Type | Priori | Associated Diagnoses | Order Schedule | | | | ty | | | + + +--------+ + + | * [facility] - | Outpatient | [...]
--- OUTSIDE RECORDS SUMMARY | ~2019-05-03 | XMS | Encounter Summary ---
Demographics + + + | Address | [address] | | | [place] [address] | + + + | Home Phone | | + + + | Preferred Language | Unknown | + + + | Marital Status | Single | + + + | Advent Affiliation | Unknown | + + + | Race | Unknown | + + + | Ethnic Group | Unknown | + + + Author + + + | Author | [facility] | | | and [place] | + + + | Organization | [facility] | | | and [place] | + + + | Address | Unknown | + + + | Phone | Unavailable | + + + Support + + + + + | Name | Relationship | Address | Phone | + + + + + | Isabella iMn | ECON | [address] | | | | | [place] [address] | | + + + + + | Robson Min | ECON | Unknown | | + + + + + | Isabella Whitehead | ECON | Unknown | | + + + + + Care Team Providers + +------+ + | Care Ladle Operator Name | Role | Phone | [...] (Call Back) | | 2019 | | [facility] | [facility] [address] | | | | | CLIN[address] | [address] [facility], | | | | | [address] [place], | [place] [address] | | | | | [place] [address] | [phone] | | | | | [phone] | | | +--------+ + + + [...] [place] | | | | | | [id number] | | | | | | | | +--------+---------+ + + + | 07/26/ | Office | Pulmonology | Navdeep Grande, | | | 2019 | Visit | | [address] | | | | | | [place] | | | | | | [address] | | | | | | | | +--------+---------+ + + + documented as of this encounter Visit Diagnoses Not on filedocumented in this encounter"
--- OUTSIDE RECORDS SUMMARY | ~2019-05-03 | XMS | Encounter Summary ---
Demographics + + + | Address | [address] | | | [place] [address] | + + + | Home Phone [...] | | | | | [place] [address] | | + + + + + Care Team Providers + +------+ + | Care Civil Structural Engineer Name | Role | Phone | [...] | | | | | [place] [address] | | +--------+ + + + + [...] | | + +---------+ + + | [facility] DEPARTMENT OF | | | [...] | | + +---------+ + + | [facility] DEPARTMENT OF | | | | | RADIOLOGY | | | | + +---------+ + + documented in this encounter Visit Diagnoses Not on filedocumented in this encounter"
--- OUTSIDE RECORDS SUMMARY | ~2019-05-03 | XMS | Encounter Summary ---
Demographics + + + | Address | [address] | | | [place] [address] | + + + | Home Phone | | + + + | Preferred Language | Unknown | + + + | Marital Status | Single | + + + | Holiness Affiliation | CHR | + + + [...] | | | | | [place] [address] | | + + + + + Care Team Providers + +------+ + | Care Architect Marine Name | Role | Phone | + +------+ + PCP | Unavailable | + +------+ + Encounter Details +--------+ + + + + | Date | Type | Department | Care Team | Description | +--------+ + + + + | 11/01/ | Respiratory | | Other, Faculty | | | 2006 | Therapy | | [phone] | | +--------+ + + + + [...] | | | Y | Lisa Wahl, [employer] AX CONSULTANT | | | | + + + [...] [facility] | [address] | [place], [place] | | | DIAGNOSTICS - | [address] | [address] | | | PULMONARY FUNCTION | | | | + + + + + documented in this encounter Visit Diagnoses Not on filedocumented in this encounter"
--- OUTSIDE RECORDS SUMMARY | ~2019-05-03 | XMS | Encounter Summary ---
Demographics + + + | Address | [address] | | | [place] [address] | + + + | Home Phone | | + + + | Preferred Language | Unknown | + + + | Marital Status | Single | + + + | Episcopalian Affiliation | Unknown | + + + | Race | Unknown | + + + | Ethnic Group | Unknown | + + + Author + + + | Author | [facility] | | | and [place] | + + + | Organization | [facility] | | [...] | | | | | [place] [address] | | + + + + + | Robson Min | ECON | Unknown | | + + + + + | Isabella Whitehead | ECON | Unknown | | + + + + + Care Team Providers + +------+ + | Care Segmental Paving Supervisor Name | Role | Phone | + +------+ + | Juanito Avery | DOMONIQUE | | + +------+ + Encounter Details +--------+ + + + + | Date | Type | Department | Care Team | Description | +--------+ + + + + | 02/13/ | Orders Only | [facility] | Jimbo Smaayoa MD | Intractable migraine | | 2019 | | HOSPITAL [facility] | [address] | with aura without | | | | CLINIC [address] | [place] | status migrainosus | | | | DR KACI [place], | [address] | (Primary Dx) | | | | [place] [address] | | | | | | [phone] | | | +--------+ + + + [...] [place] | | | | | | [address] | | | | | | | | +--------+---------+ + + + | 07/26/ | Office | Pulmonology | Navdeep [place], | | | 2019 | Visit | | [address] | | | | | | [place] | | | | | | [address] | | | | | | | [...] | | | aura, non-status migrainous Kait courtney 48 y.o.year-old | | | femalewho receive [...] | | Sincerely, Jimbo Samayoa M.D. Neurologist [phone] | | | Electronically signed | | + + + documented in this encounter Visit Diagnoses + + | Diagnosis | + + | Intractable migraine with aura without status migrainosus - Primary Migraine with | | aura, with intractable migraine, so stated, without mention of status migrainosus | + + documented in this encounter"
--- OUTSIDE RECORDS SUMMARY | ~2019-05-03 | XMS | Clinical Summary ---
Demographics + + + | Address | [address] | | | [place] [address] | + + + | Home Phone | | + + + | Preferred Language | Unknown | + + + | Marital Status | Single | + + + | Caodaism Affiliation | Unknown | + + + | Race | Unknown | + + + | Ethnic Group | Unknown | + + + Author + + + | Author | [facility] [facility] (Historical as of | | | 12-03-18) | + + + | Organization | [facility] [employer] [facility] [facility] (Historical as of | | | 12-03-18) [...] Team Providers + +------+ + | Care Auto Slip Cover Installer Name | Role | Phone | [...] | | | | Activ | | [id number] | mouth every 4 (four) | | [...] +------+-------+ + | MEDICAID | JOSEER | [id number] | | | [address] | | | N | | | | [place] | | | [place] | | | | [address] | | | [employer]ER | | | | | + +--------+ [...] | kristy | | | [address] | [address] | + +--------+ +--------+ + +
--- OUTSIDE RECORDS SUMMARY | ~2019-05-03 | XMS | Encounter Summary ---
Demographics + + + | Address | [address] | | | [place] [address] | + + + | Home Phone | | + + + | Preferred Language | Unknown | + + + | Marital Status | Single | + + + | Jew Affiliation | Unknown | + + + | Race | Unknown | + + + | Ethnic Group | Unknown | + + + Author + + + | Author | [facility] | | | and [place] | + + + | Organization | [facility] | | | [...] | | | | | [place] [address] | | + + + + + | Robson Min | ECON | Unknown | | + + + + + | Isabelal Whitehead | ECON | Unknown | | + + + + + Care Team Providers + +------+ + | Care Preschool Assistant Name | Role | Phone | [...] | | | | MANAGEMENT [address] | Car Sales Associate-Clinical | | | | | [address] | | | | | | [place] | | | | | | [address] | | | | | | [phone] | | | +--------+ + + + [...] [place] | | | | | | [address] | | | | | | | | +--------+---------+ + + + | 07/26/ | Office | Pulmonology | [place], | | | 2019 | Visit | | [address] | | | | | | [place] | | | | | | [address] | | | | | | | | +--------+---------+ + + + documented as of this encounter Visit Diagnoses Not on filedocumented in this encounter"
--- OUTSIDE RECORDS SUMMARY | ~2019-05-03 | XMS | Encounter Summary ---
Demographics + + + | Address | [address] | | | [place] [address] | + + + | Home Phone [...] Author + + + | Author | [facility] | + + + | Organization | [facility] | + + + | Address | Unknown | + + + | Phone | Unavailable | + + + Support + + + + + | Name | Relationship | Address | Phone | + + + + + | Scot Johnson | ECON | [address] | | | | | [place] [address] | | + + + + + Care Team Providers + +------+ + | Care Marketing Budget Analyst Name | Role | Phone | [...] | | | | | [facility], | | | | | | [place] [address] | | | | | | [phone] | | | +--------+ + + + [...] | + + + + + | [facility] | [address] | [place] [address] | | | LABORATORY | | | | + + + + + documented in this encounter Visit Diagnoses Not on filedocumented in this encounter"
--- OUTSIDE RECORDS SUMMARY | ~2019-05-03 | XMS | Encounter Summary ---
Demographics + + + | Address | [address] | | | [place] [address] | + + + | Home Phone | | + + + | Preferred Language | Unknown | + + + | Marital Status | Single | + + + | Yarsani Affiliation | Unknown | + + + [...] | | | | | [place] [address] | | + + + + + | Robson Min | ECON | Unknown | | + + + + + | Isabella Whitehead | ECON | Unknown | | + + + + + Care Team Providers + +------+ + | Care Procedures Tech Name | Role | Phone | [...] [address]AR[address] | | | | | [phone] | [place] [address] | | +--------+ + + + + [...] [place] | | | | | | [address] | | | | | | | | +--------+---------+ + + + | 07/26/ | Office | Pulmonology | Navdeep [place], | | | 2019 | Visit | | [address] | | | | | | [place] | | | | | | [address] | | | | | | | [...] this | | | e | 8:20 AM | | procedure are in the | | | | PDT | | results section. | + +--------+ + + + documented in this encounter Results XR Chest AP Portable (08/17/2018 8:20 AM PDT) + + | Specimen | [...]
--- OUTSIDE RECORDS SUMMARY | ~2019-05-03 | XMS | Encounter Summary ---
Demographics + + + | Address | [address] | | | [place] [address] | + + + | Home Phone [...] | | | | | [place] [address] | | + + + + + Care Team Providers + +------+ + | Care Paper Latcher Name | Role | Phone | + +------+ + PCP | Unavailable | + +------+ + Encounter Details +--------+ + + + + | Date | Type | Department | Care Team | Description | +--------+ + + + + | 11/01/ | Respiratory | | Other, Faculty | | | 2006 | Therapy | | [phone] | | +--------+ + + + + [...] | | | Y | Lisa Wahl, HAND WEAVER | | | | + + + [...] [facility] | [address] | [place], [place] | | | DIAGNOSTICS - | [address] | [address] | | | PULMONARY FUNCTION | | | | + + + + + documented in this encounter Visit Diagnoses Not on filedocumented in this encounter"
--- OUTSIDE RECORDS SUMMARY | ~2019-05-03 | XMS | Clinical Summary ---
Demographics + + + | Address | [address] | | | [place] [address] | + + + | Home Phone [...] | | | | | [place] [address] | | + + + + + | Robson Escobar | ECON | Unknown | | + + + + + | Isabella Whitehead | ECON | Unknown | | + + + + + Care Team Providers + +------+ + | Care Skip Pit Worker Name | Role | Phone | [...] Overview: Overview: | | Seeaugusto Becerra- in [place] | | | | IMO Problem List [...] | | MD Heber Whiteside, | infarction) ([facility]) | | 04/20/ | | | DO Iva | (Primary Dx); Chest | | 2019 | | | | pain, unspecified | | | | | | type; COPD, frequent | | | | | | exacerbations ([facility]) | +--------+ + + + + | [...] | + + + + | INFLUENZA, [id number], | 03/09/2009 | | | UNSPECIFIED | [...] [place] | | | | | | [address] | | | | | | | | +--------+---------+ + + + | 07/26/ | Office | Pulmonology | Navdeep [place], | | | 2019 | Visit | | [address] | | | | | | [place] | | | | | | [address] | | | | | | | [...] | | | ?MRN: | | | [id number] | | | [id number] | | | riteri | | | [...] | | | ton:? | | | [id number] | | | -2536. | | | [...] | | | St. | | | [place] | | | y | | | [...] | | | St. | | | [place] | | | y H. | | [...] | | | St. | | | [place] | | | y H. | | [...] | | | St. | | | [place] | | | y H. | | [...] | | | St. | | | [place] | | | y H. | | [...] | | | St. | | | [place] | | | y H. | | [...] | | | St. | | | [place] | | | y H. | | [...] | | | St. | | | [place] | | | y H. | | [...] | | | [id number] | | | [id number] | | | 93 | | | [...] [facility] | | | | performed at [facility];[address] | | LABORATORY | | | | [address];[place], [place] | | | | | | [address] | | | | + + + + + + + + | Specimen | + + | Blood | + + + + + + + | Performing | Address | City/State/Zipcode | Phone Number | | Organization | | | | + + + + + | [facility] | [address] | [place] [address] | [phone] | + + + + + Phosphorus (04/20/2019 6:16 AM PST) + + + + + + | Component | Value | Ref Range | Performed | Pathologist | | | | | At | Signature | + + + + + + | Phosphorus | 4.9 (H)Comment: Testing | 2.3 - 4.8 mg/dL | [facility] | | | | performed at [facility];[address] | | LABORATORY | | | | [address];[place], [place] | | | | | | [address] | | | | + + + + + + + + | Specimen | + + | Blood | + + + + + + + | Performing | Address | City/State/Zipcode | Phone Number | | Organization | | | | + + + + + | [facility] | [address] | [place] [address] | [phone] | + + + + + Magnesium (04/20/2019 6:16 AM PST) + + + + + + | Component | Value | Ref Range | Performed | Pathologist | | | | | At | Signature | + + + + + + | Magnesium | 1.8Comment: Testing | 1.7 - 2.4 mg/dL | [facility] | | | | performed at [facility];[address] | | LABORATORY | | | | [address];[place], [place] | | | | | | [address] | | | | + + + + + + + + | Specimen | + + | Blood | + + + + + + + | Performing | Address | City/State/Zipcode | Phone Number | | Organization | | | | + + + + + | [facility] | [address] | [place] [address] | [phone] | + + + + + Basic [...] | | | | | performed at [facility];[address] | | | | | | [address];[place], [place] | | | | | | [address] | | | | + + + + + + + + | Specimen | + + | Blood | + + + + + + + | Performing | Address | City/State/Zipcode | Phone Number | | Organization | | | | + + + + + | [facility] | [address] | [place] [address] | [phone] | + + + + + [place] [...] at | | | | | | [facility];[address] | | | | | | [facility];[place] [address] | | | | + + + + + + + + | Specimen | + + | Blood | + + + + + + + | Performing | Address | City/State/Zipcode | Phone Number | | Organization | | | | + + + + + | [facility] | [address] | [place] [address] | [phone] | + + + + + Urinalysis [...] - 1.030 | [facility] | | | [place], | | | LABORATORY | | | [...] TE | | | | performed at [facility];[address] | | LABORATORY | | | | [address];[place], [place] | | | | | | [address] | | | | + + + + + + + + | Specimen | + + | Urine | + + + + + + + | Performing | Address | City/State/Zipcode | Phone Number | | Organization | | | | + + + + + | [facility] | [address] | [place] [address] | [phone] | + + + + + Drugs [...] | Tetrahydroc | NEGATIVEComment: | NEG | [facility] | | | annabinol(T | Positive [...] | | | | | performed at [facility] | | | | | | [address];[place], [place] | | | | | | [address] | | | | + + + + + + + + | Specimen | + + | Urine - Urine | | specimen (specimen) | + + + + + + + | Performing | Address | City/State/Zipcode | Phone Number | | Organization | | | | + + + + + | [facility] | [address] | [place] [address] | [phone] | + + + + + ECG [...] (500), | | | | | | food expeditor Beth Quinn | | | | | [...] HDL | 53 | >40 mg/dL | [facility] | | | | | | LABORATORY | | + + + + + + | LDL, | 106 (H)Comment: Testing | <100 mg/dL | [facility] | | | Calculated | performed at [facility], [address] | | LABORATORY | | | | [address], | | | | | | [place] [address] | | | | + + + + + + + + | Specimen | + + | Blood | + + + + + + + | Performing | Address | City/State/Zipcode | Phone Number | | Organization | | | | + + + + + | [facility] | [address] | [place] [address] | [phone] | + + + + + Protime [...] | | | | | performed at [facility];[address] | | | | | | [address];[place], [place] | | | | | | [address] | | | | + + + + + + + + | Specimen | + + | Blood | + + + + + + + | Performing | Address | City/State/Zipcode | Phone Number | | Organization | | | | + + + + + | [facility] | [address] | [place] [address] | [phone] | + + + + + CBC [...] at | | | | | | [facility];[address] | | | | | | Blvd;[place] [address] | | | | + + + + + + + + | Specimen | + + | Blood | + + + + + + + | Performing | Address | City/State/Zipcode | Phone Number | | Organization | | | | + + + + + | [facility] | [address] | [place] [address] | [phone] | + + + + + Hemoglobin A1C (04/18/2019 11:54 AM PST) + + + + + + | Component | Value | Ref Range | Performed | Pathologist | | | | | At | Signature | + + + + + + | Hemoglobin | 5.9Comment: HbA1c method | 4.0 - 6.0 % | [facility] | | | A1c | is certified by [facility] | | LABORATORY | | | | [...] | 123Comment: Estimated | <154 mg/dL | [facility] | | | Average | Average Glucose | | LABORATORY | | | Glucose | calculated from | | | | | | hemoglobin A1c by use of | | | | | | the ADArecommended | | | | | | formula.Testing | | | | | | performed at [facility], [address] | | | | | | [address], | | | | | | [place] [address] | | | | + + + + + + + + | Specimen | + + | Blood | + + + + + + + | Performing | Address | City/State/Zipcode | Phone Number | | Organization | | | | + + + + + | [facility] | [address] | [place] [address] | [phone] | + + + + + Comprehensive [...] | | | | | | MDRD IDMN traceable | | | | | | equation.Testing | | | | | | performed at [facility];[address] | | | | | | [facility];[place], [place] | | | | | | [address] | | | | + + + + + + + + | Specimen | + + | Blood | + + + + + + + | Performing | Address | City/State/Zipcode | Phone Number | | Organization | | | | + + + + + | [facility] | [address] | [place] [address] | [phone] | + + + + + ECHO-EXTERNAL [...] | | Sincerely, Jimbo Samayoa M.D. Neurologist [phone] | | | Electronically signed | | [...] | [employer] | [employer]A | [id number] | 10/18/19 | [phone] | | Medica | | MEDICAID HMO | HEALTH | | 14-Pre | 1 | | id | | | MDCD | | sent | | | | | | [place] | | | | | | + +--------+ +--------+ +---------+--------+ | [employer] | MODA | [id number] | | [phone] | | Medica | | MEDICAID HMO | HEALTH | | 018-Pr | 1 | | id | | | MDCD | | esent | | | | | | [place] | | | | | | + +--------+ +--------+ +---------+--------+ | [employer] | MODA | [id number] | | [phone] | | Medica | | MEDICAID HMO [...] [place] | | | 5 (Home) | [address] | + +--------+ +--------+ + + | Craline Escobar | Person | Self [birth year] | [address] | | | al/Fam | | 1970 | [phone] | [place], [place] | | | kristy | | | 5 (Home) | [address] | + +--------+ +--------+ + + | Carline Escobar | Person | Self [birth year] | [address] | | | al/Fam | | 1970 | [phone] | [place], [place] | | | kristy | | | 5 (Home) | [address] | + +--------+ +--------+ + + Advance Directives + + + + + | Type | Date Recorded | Patient | Explanation | | | | Turkey Farmer | | + + + + + | Power of | | | | | Merchandise Worker | | | | + + + [...]
--- OUTSIDE RECORDS SUMMARY | ~2019-05-03 | XMS | Encounter Summary ---
Demographics + + + | Address | [address] | | | [place] [address] | + + + | Home Phone | | + + + | Preferred Language | Unknown | + + + | Marital Status | Single | + + + | Yarsanism Affiliation | CHR | + + + | Race | White | + + + | Ethnic Group | Not or | + + + Author + + + | Author | [facility] | + + + | Organization | [facility] | + + + | Address | Unknown | + + + | Phone | Unavailable | + + + Support + + + + + | Name | Relationship | Address | Phone | + + + + + | Scot Johnson | ECON | [address] | | | | | [place] [address] | | + + + + + Care Team Providers + +------+ + | Care Bond Analyst Name | Role | Phone | [...] | [address] | [address] | | | | | Mailcode: L[address] | [place], [place] | | | | | [facility] | [address] | | | | | [place], [place] | [phone] | | | | | [address] | | | | | | [phone] | | | +--------+ + + + [...] | + + + + + | [facility] | [address] | [place] [address] | | | PATHOLOGY | [address] | | | + + + + + | [facility] | [address] [place] [address] | [place] [address] | | | PATHOLOGY | [address] [...] DEPARTMENT OF | [address] | [place] [address] | | | PATHOLOGY | [address] | | | + + + + + | [facility] DEPARTMENT OF | [address] | [place] [address] | | | PATHOLOGY | [address] [...] | + + + + + | [facility] DEPARTMENT OF | [address] | [place] [address] | | | PATHOLOGY | [address] | | | + + + + + | [facility] DEPARTMENT OF | [address] | [place] [address] | | | PATHOLOGY | [address] [...] | + + + + + | [facility] DEPARTMENT OF | [address] | [place] [address] | | | PATHOLOGY | [address] | | | + + + + + | [facility] DEPARTMENT OF | [address] | [place] [address] | | | PATHOLOGY | [address] [...] | + + + + + | [facility] | [address] | [place] [address] | | | PATHOLOGY | [address] | | | + + + + + | [facility] | [address] | [place] [address] | | | PATHOLOGY | [address] [...] MPV | 7.6 | 7.4 - 10.4 [place] | [facility] | | | | | | DEPARTMENT [...] | + + + + + | [facility] DEPARTMENT OF | [address] | [place] [address] | | | PATHOLOGY | [address] | | | + + + + + | [facility] DEPARTMENT OF | [address] | [place] [address] | | | PATHOLOGY | [address] [...] DEPARTMENT OF | [address] | [place] [address] | | | PATHOLOGY | [address] | | | + + + + + | [facility] DEPARTMENT OF | [address] | [place] [address] | | | PATHOLOGY | [address] [...] | + + + + + | [facility] DEPARTMENT OF | [address] | [place] [address] | | | PATHOLOGY | [address] | | | + + + + + | [facility] DEPARTMENT OF | [address] | [place] [address] | | | PATHOLOGY | [address] [...] DEPARTMENT OF | [address] | [place] [address] | | | PATHOLOGY | [address] | | | + + + + + | [facility] DEPARTMENT OF | [address] | [place] [address] | | | PATHOLOGY | [address] | | | + + + + + documented in this encounter Visit Diagnoses Not on filedocumented in this encounter"
--- OUTSIDE RECORDS SUMMARY | ~2019-05-03 | XMS | Encounter Summary ---
Demographics + + + | Address | [address] | | | [place] [address] | + + + | Home Phone | | + + + | Preferred Language | Unknown | + + + | Marital Status | Single | + + + | Presybeterian Affiliation | CHR | + + + [...] | | | | | [place] [address] | | + + + + + Care Team Providers + +------+ + | Care First Assist Name | Role | Phone | + +------+ + PCP | Unavailable | + +------+ + Encounter Details +--------+ + + + + | Date | Type | Department | Care Team | Description | +--------+ + + + + | 12/06/ | Results | | Franki Carlos MD | | | 2002 | Only | | [address] | | | | | | [address] [place], | | | | | | [place] [address] | | | | | | [phone] | | | | | | | [...] + | X-RAY CHEST 2 VIEW | Urgent | 12/06/2002 | | Results for this | | | | 10:05 AM | | procedure are in the | | | | PDT | | results section. | + +--------+ + + + | BASIC METABOLIC SET | Routin | 12/06/2002 | | Results for this | | (NA, K, CL, TCO2, | e | 4:00 AM | | procedure are in the | | BUN, CR, GLU, CA) | | PDT | | results section. | + +--------+ + + + | CBC ONLY | Routin | 12/06/2002 | | Results for this | | | e | 4:00 AM | | procedure are in the | | | | PDT | | results section. | + +--------+ + + + documented in this encounter Results CHEST 2 VIEW (12/06/2002 10:05 AM PDT) + + + + + + | Component | Value | Ref Range | Performed | Pathologist | | | | | At | Signature | + + + + + + | CHEST, 2 | Radiologist 1: ALESSANDRO, | | | | | VIEWS [place] | VIOLET CuevasPA AND LATERAL | | | | | STEREO | CHEST: 12/06/2002 | | | | | | Dictated: 12/06/2002 | | | | | | COMPARISON: | | | | | | 12/05/2002. | | | | | | INDICATION: Follow-up | | | | | | respiratory distress. | | | | | | FINDINGS: Cardiac | | | | | | silhouette is normal. | | | | | | There are multiple | | | | | | areas ofband like or | | | | | | linear opacities most | | | | | | characteristic for | | | | | | atelectasis andairway | | | | | | thickening especially | | | | | | involving the lingula | | | | | | and right middlelobe. | | | | | | Right pleural | | | | | | thickening is present | | | | | | and may relate to | | | | | | thepatients history of | | | | | | empyema. Right-sided | | | | | | portacath has been | | | | | | removed.Left-sided PICC | | | | | | catheter is unchanged. | | | | | | There is no evidence | | | | | | forpneumothorax or new | | | | | | area of consolidation. | | | | | | IMPRESSION: 1. Right | | | | | | pleural thickening, | | | | | | likely the residual from | | | | | | prior empyema. 2. | | | | | | Bilateral linear | | | | | | opacities most | | | | | | consistent with areas | | | | | | ofatelectasis. The | | | | | | residual from a prior | | | | | | pneumonia is possible. | | | | | | If thepatients | | | | | | symptomatology persists | | | | | | or worsens over the | | | | | | ensuing days toweeks, | | | | | | then consideration for a | | | | | | BOOP like reactive | | | | | | could be made. END OF | | | | | [...] +---------+ + + CBC ONLY WITH PLATELET (12/06/2002 4:00 AM PDT) + + + + + + | Component | Value | Ref Range | Performed | Pathologist | | | | | At | Signature | + + + + + + | WHITE CELL | 11.4 (H) | 4.4 - 11.0 K/cu | [facility] | | | COUNT | | mm | DEPARTMENT | | | | | | OF | | | | | | PATHOLOGY | | + + + + + + | RED CELL | 3.97 | 3.65 - 5.10 | [facility] | | | COUNT | | M/cu mm | DEPARTMENT | | | | | | OF | | | | | | PATHOLOGY | | + + + + + + | HEMOGLOBIN | 11.8 | g/dL | [facility] | | | [...] + + + + | MCV | 87.0 | 80.0 - 96.0 fL | [facility] | | | | | | DEPARTMENT | | | | | | OF | | | | | | PATHOLOGY | | + + + + + + | MCH | 29.7 | 29.0 - 32.0 pg | [facility] [...] + + + + | RDW | 13.6 | 11.5 - 15.0 % | [facility] | | | | | | DEPARTMENT | | | | | | OF | | | | | | PATHOLOGY | | + + + + + + | PLATELET | 477 | K/cu mm | [facility] | | | COUNT | | | DEPARTMENT | | | | | | OF | | | | | | PATHOLOGY | | + + + + + + | MPV | 7.3 (L) | 7.4 - 10.4 fL | [facility] [...] | + + + + + | [facility] | [facility] [address] | [place] [address] | | | PATHOLOGY | [address] | | | + + + + + | [facility] DEPARTMENT OF | [facility] [address] | [place] [address] | | | PATHOLOGY | [address] | | | + + + + + BASIC METABOLIC SET (12/06/2002 4:00 AM PDT) + +-------+ + + + | Component | Value | Ref Range | Performed | Pathologist | | | | | At | Signature | + +-------+ + + + | GLUCOSE, | 94 | 65 - 110 mg/dL | [facility] [...] +-------+ + + + | SODIUM, | 138 | 136 - 145 | [facility] | | | PLASMA | | mmol/L | DEPARTMENT | | | (LAB) | | | OF | | | | | | PATHOLOGY | | + +-------+ + + + | POTASSIUM, | 4.0 | 3.5 - 5.1 | [facility] | | | PLASMA | | mmol/L | DEPARTMENT | | | (LAB) | | | OF | | | | | | PATHOLOGY | | + +-------+ + + + | CHLORIDE, | 106 | 98 - 107 mmol/L | [facility] [...] +-------+ + + + | CALCIUM, | 8.9 | 8.5 - 10.5 | [facility] | | | PLASMA | | mg/dL [...] | + + + + + | [facility] DEPARTMENT OF | [address] | [place] [address] | | | PATHOLOGY | [address] | | | + + + + + | [facility] DEPARTMENT OF | [address] | [place] [address] | | | PATHOLOGY | [address] | | | + + + + + documented in this encounter Visit Diagnoses Not on filedocumented in this encounter"
--- OUTSIDE RECORDS SUMMARY | ~2019-05-03 | XMS | Encounter Summary ---
Demographics + + + | Address | [address] | | | [place] [address] | + + + | Home Phone [...] | | | | | [place] [address] | | + + + + + Care Team Providers + +------+ + | Care Cool Roofing Installer Name | Role | Phone | [...] as of this encounter Progress Notes Interface, Show Design Supervisor In - 03/06/2006 5:10 AM [facility] [place] [facility] [place], [place] [address] or September 23, 1999 Renan Bright MD [address] [place] [address] RE: CARLINE MIN MR #: [id number] Dear Dr. Bright: I saw your patient, [...] more and will be interviewed by our patient assessment coordinator. We will obtain some x-rays and labs to further screen her for candidacy. PLAN 1. The patient to meet with patient assessment coordinator today regarding IL-1 RA study. 2. Labs today to include CBC, liver function tests, C-reactive protein and erythrocyte sedimentation rate. 3. X-rays of the hands today. 4. 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 I would appreciate it if those results could be faxed to me at this clinic: [phone]. 5. She will be made a follow-up appointment either with me or as part of the above-mentioned study. Again, thank you for allowing me to participate in this Ms. Min's care and please call if you wish to discuss her case further. Sincerely, Ameya Steen M.D. Rheumatology Fellow TU / PHIL [id number] / [id number] / [id number] / [id number] signed by Interface, Show Design Supervisor In at 03/06/2006 5:10 AM PSTdocume nted in this encounter Plan of Treatment Not on filedocumented as of this encounter Visit Diagnoses Not on filedocumented in this encounter"
--- OUTSIDE RECORDS SUMMARY | ~2019-05-03 | XMS | Encounter Summary ---
Demographics + + + | Address | [address] | | | [place] [address] | + + + | Home Phone [...] | | | | | [place] [address] | | + + + + + | Robson Min | ECON | Unknown | | + + + + + | Isabella Whitehead | ECON | Unknown | | + + + + + Care Team Providers + +------+ + | Care Study Assistant Name | Role | Phone | + +------+ + | Bart Ba DO | PCP | | + +------+ + Encounter Details +--------+ + + + + | Date | Type | Department | Care Team | Description | +--------+ + + + + | 03/15/ | Hospital | [facility] | Jimbo Samayoa MD | Disorientation; | | 2017 | Encounter | HOSPITAL RESPIRATORY | [address] | Dizziness | | | | THERAPY [address] | [place] | | | | | [place] | [address] | | | | | [address] | | | | | | [phone] | | | +--------+ + + + [...] 9 | | MISCIndications: | 550mlIPAP 19 [id number] | | | | | | Alveolar | 9 [id number] | | | | | | hypoventilation, [...] of this encounter Progress Notes Dong Jones RRT - 03/15/2018 12:18 PM PSTPatient said she uses oxygen at 3 L/min. 24 h ours/day and did not bring her portable oxygen system for her EEG appointment. Kait felt s light short of breath before EEG study so I put her on 3 L/ nc. After test Kait stated she would not oxygen on her way home. OBurDong gaona RRT - 03/15/2018 11:59 AM PSTAwake and drowsy [...] [place] | | | | | | [address] | | | | | | | | +--------+---------+ + + + | 07/26/ | Office | Pulmonology | Navdeep Grande, | | | 2019 | Visit | | MD [address] | | | | | | [place] | | | | | | [address] | | | | | | | [...] | Ernestine Jimenez MD 03/15/2018 12:45 Name:Kait Amanda | | | Pako :1970 DATE OF [...]
--- OUTSIDE RECORDS SUMMARY | ~2019-05-03 | XMS | Encounter Summary ---
Demographics + + + | Address | [address] | | | [place] [address] | + + + | Home Phone [...] | | | | | [place] [address] | | + + + + + | Robson Min | ECON | Unknown | | + + + + + | Isabella Whitehead | ECON | Unknown | | + + + + + Care Team Providers + +------+ + | Care Creative Assistant Name | Role | Phone | [...] (Primary Dx) | | | | [place] [address] | | | | | | [phone] | | | +--------+ + + + [...] [place] | | | | | | [address] | | | | | | | | +--------+---------+ + + + | 07/26/ | Office | Pulmonology | Navdeep Grande, | | | 2019 | Visit | | [address] | | | | | | [place] | | | | | | [address] | | | | | | | [...] | | Sincerely, Jimbo Samayoa M.D. Neurologist [phone] | | | Electronically signed | | + + + documented in this encounter Visit Diagnoses + + | Diagnosis | + + | Intractable migraine with aura without status migrainosus - Primary Migraine with | | aura, with intractable migraine, so stated, without mention of status migrainosus | + + documented in this encounter"
--- OUTSIDE RECORDS SUMMARY | ~2019-05-03 | XMS | Encounter Summary ---
Demographics + + + | Address | [address] | | | [place] [address] | + + + | Home Phone | | + + + | Preferred Language | Unknown | + + + | Marital Status | Single | + + + | Mandaen Affiliation | CHR | + + + [...] | | | | | [place] [address] | | + + + + + Care Team Providers + +------+ + | Care Functional Consultant Name | Role | Phone | [...] | | | | | [place] [address] | | +--------+ + + + + [...] | | + +---------+ + + | [facility] DEPARTMENT OF | | [...] | | + +---------+ + + | [facility] DEPARTMENT OF | | | | | RADIOLOGY | | | | + +---------+ + + documented in this encounter Visit Diagnoses Not on filedocumented in this encounter"
--- OUTSIDE RECORDS SUMMARY | ~2019-05-03 | XMS | Encounter Summary ---
Demographics + + + | Address | [address] | | | [place] [address] | + + + | Home Phone [...] | | | | | [place] [address] | | + + + + + | Robson Min | ECON | Unknown | | + + + + + | Isabella Whitehead | ECON | Unknown | | + + + + + Care Team Providers + +------+ + | Care Fruit Or Nut Farmworker Name | Role | Phone | + +------+ + PCP | Unavailable | + +------+ + Encounter Details +--------+ + + + + | Date | Type | Department | Care Team | Description | +--------+ + + + + | 03/24/ | Orders Only | [facility] | Lu Almazan, | Abnormal chest CT | | 2011 | | PULMONARY [address] | RN | (Primary Dx) | | | | [place], | | | | | | [place] [address] | | | | | | [phone] | | | +--------+ + + + [...] [place] | | | | | | [address] | | | | | | | | +--------+---------+ + + + | 07/26/ | Office | Pulmonology | Navdeep Grande, | | | 2019 | Visit | | [address] | | | | | | [place] | | | | | | [address] | | | | | | | | +--------+---------+ + + + documented as of this encounter Results XR Chest PA and Lateral (04/04/2012 12:25 PM PST) + + | Specimen | + + | | + + + + + | Narrative | Performed At | + + + | [facility] | [place] | | Department [address] [facility] [address] | [facility] [place] | | [ rep [address]] [ rep [facility] | | [facility]] Signed | - IMAGING | | | | | Patient Name: CARLINE MIN Physician: | | | RODRI : 1970 Age: 41 Sex: F Unit #: [id number] | | | Exam Date: 04/04/12 Location: [facility] | | | Report #: [id number] Page: | | | %(RAD)RES..mtdd.print.filter("pg") of %(RAD) | | | RES..mtdd.print.filter("tpg") | | | | | | Accession Number: [id number] | | | CHEST X-RAY, 04/04/2012 CLINICAL [...] | | | Transcribed Date/Time: 04/04/2012 15:34 Industrial Gas Servicer: | | | <<Signature on File>> | | | Magdy | | | MD Shaun04/05/12 0055 <Electronically signed by Magdy Dunn MD> | | | Magdy Dunn MD 04/04/12 1225 Industrial Gas Servicer: [employer] | | | Hlilteldwaqcb46/17/12 1534 Navdeep Grande MD | | | | | + + + + + + + + | Performing | Address | City/State/Zipcode | Phone Number | | Organization | | | | + + + + + | [facility] | [address] | [place] | [phone] | | [facility] | | [address] | | | - IMAGING | | | | + + + + + documented in this encounter Visit Diagnoses + + | Diagnosis | + + | Abnormal chest CT - Primary Nonspecific (abnormal) findings on radiological and other | | examination of other intrathoracic organs | + + documented in this encounter
--- OUTSIDE RECORDS SUMMARY | ~2019-05-03 | XMS | Encounter Summary ---
Demographics + + + | Address | [address] | | | [place] [address] | + + + | Home Phone [...] + + + | Author | [facility] | | | and [place] | + + + | Organization | [facility] | | | and [...] | | | | | [place] [address] | | + + + + + | Robson Min | ECON | Unknown | | + + + + + | Isabella Whitehead | ECON | Unknown | | + + + + + Care Team Providers + +------+ + | Care Machine Grainer Name | Role | Phone | + +------+ + | Bart Ba DO | PCP | | + +------+ + Encounter Details +--------+ + + + + | Date | Type | Department | Care Team | Description | +--------+ + + + + | 04/21/ | Hospital | [facility] | Conversion | Pain | | 2013 | Encounter | CONVERSION [address]P [address] | Transaction, | | | | | [address] | Provider Unknown | | | | | [place], [place] | [phone] | | | | | [address] | | | | | | [phone] | | | +--------+ + + + [...] | 0 | 10/08/19 | | | [id number] | every 6 hours as | | [...] | 2020 | Visit | | [address] | | | | | | [place] | | | | | | [address] | | | | | | | | +--------+---------+ + + + | 07/26/ | Office | Pulmonology | Navdeep Grande, | | | 2019 | Visit | | [address] | | | | | | [place] | | | | | | [address] | | | | | | | [...] for this | | | e | 2:37 PM | | procedure are in the | | | | PST | | results section. | + +--------+ + + + documented in this encounter Results XR Chest 1 Vw (03/21/2013 2:37 PM PST) + + | Specimen | + + | | + + + + + | Narrative | Performed At | + + + | This is a non-reportable procedure without a radiologist report and | | | is used for image storage only | | + + + + + | Procedure Note | + + | Jose Hanks [place] - 12/02/2018 1:14 PM PDT This is a non-reportable procedure | | without a radiologist report and isused for image storage only | + + documented in this encounter Visit Diagnoses + + | Diagnosis | + + | Pain Generalized pain | + + documented in this encounter"
--- OUTSIDE RECORDS SUMMARY | ~2019-05-03 | XMS | Encounter Summary ---
Demographics + + + | Address | [address] | | | [place] [address] | + + + | Home Phone [...] | | | | | [place] [address] | | + + + + + | Robson Min | ECON | Unknown | | + + + + + | Isabella Whitehead | ECON | Unknown | | + + + + + Care Team Providers + +------+ + | Care Dope House Operator Helper Name | Role | Phone | [...] | | | | | disease, | [place], | [place] [address] | | | | | unspecified | [place] | Phone: | | | | | ([facility]) | [address] | [phone] | | | | | Obstructive | Phone: | Fax: | | | | | sleep apnea | [phone] | [phone] | | | | | (adult) | Fax: | | | | | | (pediatric) | [phone] | | | | | | Procedures [...] Description | +--------+---------+ + + + | 09/22/ | Office | [facility] [place] | Navdeep Grande, | Alveolar | | 2019 | Visit | PULMONARY [address] | MD [address] | hypoventilation | | | | [place], | [place], [place] | (Primary Dx); COPD, | | | | [place] [address] | [address] | moderate (HCC); | | | | [phone] | | Hypoxemia; COPD, | | | | | | frequent | | | | | | [...] + + + | Blood Pressure | 142/80 | 09/22/2018 10:48 AM | | | | | PDT | | + + + + + | Pulse | 81 | 09/22/2018 10:48 AM | | | | | PDT | | + + + + + | Temperature | - | - | | + + + + + | Respiratory Rate | - | - | | + + + + + | Oxygen Saturation | 99% | 09/22/2018 10:48 AM | RA | | | | PDT | | + + + + + | Inhaled Oxygen | - | - | | | Concentration | | | | + + + + + | Weight | 99.2 kg (218 lb 11.1 | 09/22/2018 10:48 AM | | | | oz) | PDT | | + + + + + | Height | 170.2 cm (5' 7") | 09/22/2018 10:48 AM | | | | | PDT | | + + + + + | Body Mass Index | 34.25 | 09/22/2018 10:48 AM | | | | | PDT | | + + + + + documented in this encounter Patient Instructions Patient Instructions Navdeep Grande MD - 09/22/2018 11:00 AM PDT Roflumilast oral tablets Brand Name: Daliresp What is this medicine? ROFLUMILAST (mini FLUE mi last) decreases inflammation in the lungs. This medicine is used t o prevent COPD flare-ups. Do not use this medicine to treat sudden breathing problems. How should I use this medicine? Take this medicine by mouth with a glass of water. Follow the directions on the prescriptio n label. You can take it with or without food. If it upsets your stomach, take it with food. Take your medicine at regular intervals. Do not take it more often than directed. Do not st op taking except on your doctor's advice. A special MedGuide will be given to you by the pharmacist with each prescription and refill . Be sure to read this information carefully each time. Talk to your apigee developer regarding the use of this medicine in children. Special care may be needed. What side effects may I notice from receiving this medicine? Side effects that you should report to your doctor or health patient centered care specialist as soon as p ossible: allergic reactions like skin rash, itching or hives, swelling of the face, lips, or tong ue anxious breathing problems suicidal thoughts or other mood changes trouble sleeping weight loss Side effects that usually do not require medical attention (report to your doctor or health patient centered care specialist if they continue or are bothersome): back pain diarrhea dizziness general ill feeling or flu-like symptoms headache loss of appetite nausea, vomiting What may interact with this medicine? carbamazepine cimetidine enoxacin erythromycin fluvoxamine ketoconazole phenobarbital phenytoin rifampicin Betty's wort What if I miss a dose? If you miss a dose, take it as soon as you can. If it is almost time for your next dose, ta ke only that dose. Do not take double or extra doses. Where should I keep my medicine? Keep out of the reach of children. Store at room temperature between 15 and 30 degrees C (59 and 86 degrees F). Throw away any unused medicine after the expiration date. What should I tell my health care provider before I take this medicine? They need to know if you have any of these conditions: liver disease mental illness an unusual or allergic reaction to roflumilast, other medicines, foods, dyes, or preserv atives or trying to get breast-feeding What should I watch for while using this medicine? Visit your doctor for regular check ups. Tell your doctor or healthcare professional if you r symptoms do not start to get better or if they get worse. NOTE:This sheet is a summary. It may not cover all possible information. If you have questi ons about this medicine, talk to your doctor, pharmacist, or health care provider. Copyright 2019 [employer]vier documented in this encounter Progress Notes Navdeep Grande MD - 09/22/2018 11:00 AM PDTFormatting of this note might be different f rom the original. Pulmonary Follow Up 09/22/2018 HPI Kait Min is a 48 y.o. female patient of TIMOTHY Singleton here today for follow u p of moderate COPD, alveolar hypoventilation, hypoxemia and frequent exacerbations of COPD. Since her last clinic appointment the patient has made significant efforts at smoking cessa tion. The last pulmonary clinic visit was on 08/26/18. Since their last appointment they feel like their breathing issues have been stable. They have not had any acute pulmonary illnesses. The patient has not required a prednisone taper since our last clinic appointment. Likewise Kait has not required antibiotics for a COPD exacerbation since our last clinic appointment. Recent foot infection treated by a po letitia. Specifics unknown. The patient is currently on a daily regimen of Advair for their COPD. They do feel like th is medication regimen is/are controlling their symptoms. Currently she is using their short acting bronchodilator, ProAir, 2 times a day. Currently the patient is able to walk ~600 feet at their own pace on level ground before de veloping dyspnea. They are not exercising regularly. Their typical exercise consists of mini mal walking. Kait are not enrolled in cardiac/pulmonary rehabilitation. They have not com pleted pulmonary rehabilitation in the past. Kait does cough chronically and does produce mucous. The mucous is clear in color. They h ave not had hemoptysis since our last appointment. She has been evaluated for nocturnal oxygen. They currently are using nocturnal oxygen. Hannah harmon is currently on 1 LPM at night while sleeping. No PAP at this time. Sees Dr. Walker on Sep. They report excellent compliance. They have been evaluated for daytime oxygen and do use it. They are currently on 1 LPM with exertion and 1 LPM at rest. They have not reported recent symptoms of nasal congestion, runny nose or post nasal drip. The patient have received this year's influenza vaccination. They are up to date with thei r Pneumovax and Prevnar 13. Smokes about 0.5 packs per day. Has Quit Date set for October 01. The patient's weight has declined 11 pounds and 9 ounces since her last clinic appointment. Active weight loss efforts are underway. 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 Becerra Rheumologist in [place] Reflux esophagitis Restless leg syndrome Urinary [...] every evening., Disp: , Rfl: cloNIDine (CATAPRES) 0.3 mg/24 hr patch, Place 1 patch onto the skin Once a week., Dis p: , Rfl: ergocalciferol (VITAMIN D-2) 50,000 units capsule, Take 50,000 Units by mouth Once a w hopi., Disp: , Rfl: fluticasone-salmeterol (ADVAIR HFA) 115-21 [...] jermaine akfast)., Disp: 90 capsule, Rfl: 3 pregabalin (LYRICA) 150 MG capsule, Take 150 mg by mouth 2 times daily., Disp: , Rfl: Respiratory Therapy Supplies [facility] Portable oxygen concentrator to provide O2 at 1 l/m continuous via nasal cannula. Duration: Lifetime Dx: COPD J44.9, Disp: 1 each, Rfl: 0 sulfaSALAzine (AZULFIDINE) 500 MG EC tablet, Take [...] MG capsule, Take 60 mg by mouth Daily. With 80mg to equal to 1 40mg., Disp: , Rfl: ziprasidone (GEODON) 80 MG capsule, Take 80 mg by mouth nightly., Disp: , Rfl: Immunizations: Immunization History Administered Date(s) Administered INFLUENZA PF 18 Y OR >,TRIVALENT RECOMBINANT 02/03/2012, 02/17/2013, 01/17/2014 INFLUENZA PF QUAD(PED/ADOL/ADULT),PSKT or VIAL 02/15/2015, 02/17/2016 INFLUENZA PF TRIVALENT(PED/ADOL/ADULT), PSKT 03/07/2009, 02/18/2010, 01/17/2014, 2013 INFLUENZA QUADR W/PRES (PED/ADOL/ADULT) MULTIDOSE 01/27/2017, 02/10/2018 INFLUENZA, G3M9-68, UNSPECIFIED 03/09/2009 INFLUENZA, UNSPECIFIED FORMULATION 04/27/2000, 02/04/2011, 02/03/2012, 01/10/2013, 1104/2012, 01/10/2015 PNEUMOCOCCAL CONJUGATE 13-VALENT (PCV13) 03/19/2013, 04/24/2014 PNEUMOCOCCAL POLYSACCHARIDE 23-VALENT (PPSV23) 04/04/2009, 03/22/2013, 01/10/2015 TDAP, (ADOL/ADULT) 08/29/2011 Objective BP 142/80 | Pulse 81 | Ht 1.702 m (5' 7") | Wt 99.2 kg (218 lb 11.1 oz) | SpO2 99% Comm ent: RA | BMI 34.25 kg/m Physical Exam Data: 6-minute walk distance (ordered by Dr. Walker) 183 m Arterial blood gas performed on oxygen at 1 L/min (ordered by Dr. Walker) pH 7.42, PCO2 40.9 , PO2 146 Walking oximetry performed 09/22/2018. Resting O2 saturation was 96% on room air. With walk ing 800 feet the patient's O2 saturation nadired at 89%. No supplemental oxygen was initiat ed. Pulmonary function tests were performed on 09/22/2018 and were reviewed with the patient toda y. They show forced vital capacity of 2.20, 60% of predicted, FEV1 2.02, 68% of predicted w ith an FEV1/FVC of 92%. The residual volume is 2.19, 120% of predicted with an uncorrected DLCO of 15.5, 56% of predicted. Assessment 1. Frequent exacerbations of COPD complicated by the patient's ongoing tobacco use and immunocompromise status. Ms. Min is unable to use 3 times a week azithromycin. Today we discussed Daliresp. The patient understands the potential risk factors and is int erested in a trial. 2. COPD likely moderate. Currently treated with Advair and as needed Pro Air. Ms. Adrianne allan is up-to-date with respect to her seasonal influenza vaccination, Prevnar and Pneumovax. 3. Hypoxemia the patient's oxygenation status is actually significantly better than ant icipated. It would appear that Ms. Min can forego supplemental oxygen at rest and while in the home (other than while sleeping). I have recommended the patient wear supplemental oxygen with significant exertion away from home. 4. Tobacco use 1 month ago the patient was smoking a pack of cigarettes a day. 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 Quit date has been set. Plan 1. Initiate Daliresp 500 mg p.o. daily. 2. Pulmonary clinic follow-up appointment to assess the status of the patient's symptoms o n Daliresp in approximately 3 months. 3. Supplemental oxygen changes as noted above. CC: Ora Slater, PA documented in this [...] [place] | | | | | | [address] | | | | | | | | +--------+---------+ + + + | 07/26/ | Office | Pulmonology | Navdeep Grande, | | | 2019 | Visit | | MD Cely GORE | | | | | | [place] | | | | | | [address] | | | | | | | | +--------+---------+ + + + documented as of this encounter Visit Diagnoses + + | Diagnosis | + + | Alveolar hypoventilation - Primary Other dyspnea and respiratory abnormality | + + | COPD, moderate (HCC) Chronic airway obstruction, not elsewhere classified | + + | Hypoxemia | + + | COPD, frequent exacerbations (HCC) Chronic airway obstruction, not elsewhere | | classified | + + documented in this encounter
--- OUTSIDE RECORDS SUMMARY | ~2019-05-03 | XMS | Encounter Summary ---
Demographics + + + | Address | [address] | | | [place] [address] | + + + | Home Phone [...] | | | | | [place] [address] | | + + + + + | Robson Min | ECON | Unknown | | + + + + + | Isabella Whitehead | ECON | Unknown | | + + + + + Care Team Providers + +------+ + | Care All Round Logger Name | Role | Phone | + +------+ + | Ora Slater | PCP | | + +------+ + Encounter Details +--------+ + + + + | Date | Type | Department | Care Team | Description | +--------+ + + + + | 09/22/ | Hospital | [facility] | Neno Walker | Hypoventilation | | 2019 | Encounter | MED CTR PULMONARY | MD Srinivas [address] | | | | | FUNCTION [address] [place] | | | | | [place], | [place] [address] | | | | | [place] [address] | [phone] | | | | | [phone] | | | +--------+ + + + [...] oxygen | 1 each | 0 | // | | | Therapy Supplies | concentrator [...] [place] | | | | | | [address] | | | | | | | | +--------+---------+ + + + | 07/26/ | Office | Pulmonology | Navdeep Grande, | | | 2019 | Visit | | MD Cely GORE | | | | | | [place] | | | | | | [address] | | | | | | | [...] + | PATIENT | 37.0 | | BLUE | | | TEMP | | | [facility] | | [...] + + | [facility] | [address] | [place] | [phone] | | [facility] | | [address] | | | - LABORATORY | | | | + + + + + documented in this encounter Visit Diagnoses + + | Diagnosis | + + | Hypoventilation Other dyspnea and respiratory abnormality | + + documented in this encounter"
--- OUTSIDE RECORDS SUMMARY | ~2019-05-03 | XMS | Encounter Summary ---
Demographics + + + | Address | [address] | | | [place] [address] | + + + | Home Phone [...] | | | | | [place] [address] | | + + + + + Care Team Providers + +------+ + | Care Environmental Associate Name | Role | Phone | + +------+ + PCP | Unavailable | + +------+ + Encounter Details +--------+ + + + + | Date | Type | Department | Care Team | Description | +--------+ + + + + | 11/03/ | Respiratory | | Other, Faculty | | | 2006 | Therapy | | [phone] | | +--------+ + + + + [...] | | | Y | Edwina Edwards, SANDSTONE INSPECTOR REPAIRER | | | | + + [...] [facility] | [address] | [place], [place] | | | DIAGNOSTICS - | [address] | [address] | | | PULMONARY FUNCTION | | | | + + + + + documented in this encounter Visit Diagnoses Not on filedocumented in this encounter"
--- OUTSIDE RECORDS SUMMARY | ~2019-05-03 | XMS | Encounter Summary ---
Demographics + + + | Address | [address] | | | [place] [address] | + + + | Home Phone [...] | | | | | [place] [address] | | + + + + + Care Team Providers + +------+ + | Care Industry Consultant Name | Role | Phone | + +------+ + PCP | Unavailable | + +------+ + Encounter Details +--------+ + + + + | Date | Type | Department | Care Team | Description | +--------+ + + + + | 10/22/ | Respiratory | | Other, Faculty | | | 2006 | Therapy | | [phone] | | +--------+ + + + + [...] + | JOCELYNN PINO | Routin | 10/22/2005 | | Results for this | | | e | 12:00 AM | | procedure are in the | | | | PDT | | results section. | + +--------+ + + + documented in this encounter Results JOCELYNN PINO (10/22/2005 12:00 AM PDT) + + + + + [...] | | | | ORDER IS FOR MED NEB . | | | | | | PULMONARY HISTORY | | | | | | INCLUDES | | | | | | QUESTIONABLEREACTIVE | | | | | | AIRWAY DISEASE THORACIC | | | | | | SURGERY . CURRENT | | | | | | PULMONARY | | | | | | PROBLEMSINCLUDE THORACIC | | | | | | SURGERY . SMOKING | | | | | | HISTORY: CURRENT | | | | | | SMOKER, LESS THAN | | | | | | 1PACK/DAY .albuterol | | | | | | 2puffs q4prn . VITAL | | | | | | SIGNS:PATIENTS PAIN | | | | | | ASSESSED ANDWAS THREE ON | | | | | | A SCALE OF ZERO TO 10. | | | | | | TEMP = 36.6 C, | | | | | | HR = 99 , RR = 22, | | | | | | SaO2 = 98 % ON NASAL | | | | | | CANNULA AT 2 GOOD | | | | | | NON-PRODUCTIVE COUGH: | | | | | | CLEARBILATERAL . | | | | | | NORMAL, QUIET | | | | | | BREATHING . AMBULATES | | | | | | WITH ASSISTANCE | | | | | | .COOPERATIVE . SPUTUM | | | | | | CULTURES: NONE WITHIN | | | | | | 72 HOURS . . CHEST | | | | | | IMAGING:NONE WITHIN 72 | | | | | | HOURS . THERAPEUTIC | | | | | | GOALS: CONTINUE HOME | | | | | | REGIMIN . | | | | | | PLAN:CONTINUE HOME | | | | | | REGIMEN. . Willemopher | | | | | | ANT [place] | | | | [...] [facility] | [address] | [place], [place] | | | DIAGNOSTICS - | [address] | [address] | | | PULMONARY FUNCTION | | | | + + + + + documented in this encounter Visit Diagnoses Not on filedocumented in this encounter"
--- OUTSIDE RECORDS SUMMARY | ~2019-05-03 | XMS | Encounter Summary ---
Demographics + + + | Address | [address] | | | [place] [address] | + + + | Home Phone | | + + + | Preferred Language | Unknown | + + + | Marital Status | Single | + + + | Yazidi Affiliation | Unknown | + + + [...] | | | | | [place] [address] | | + + + + + | Robson Min | ECON | Unknown | | + + + + + | Isabella Whitehead | ECON | Unknown | | + + + + + Care Team Providers + +------+ + | Care Healthcare Consultant Name | Role | Phone | [...] RN | Alveolar | | | | [place], | | hypoventilation | | | | [place] [address] | | | | | | [phone] | | | +--------+ + + + [...] [place] | | | | | | [address] | | | | | | | | +--------+---------+ + + + | 07/26/ | Office | Pulmonology | Navdeep Grande, | | | 2019 | Visit | | MD Cely GORE | | | | | | [place] | | | | | | [address] | | | | | | | | +--------+---------+ + + + documented as of this encounter Visit Diagnoses + + | Diagnosis | + + | COPD, mild (HCC) Chronic airway obstruction, not elsewhere classified | + + | Alveolar hypoventilation Other dyspnea and respiratory abnormality | + + documented in this encounter"
--- OUTSIDE RECORDS SUMMARY | ~2019-05-03 | XMS | Encounter Summary ---
Demographics + + + | Address | [address] | | | [place] [address] | + + + | Home Phone [...] | | | | | [place] [address] | | + + + + + | Robson Min | ECON | Unknown | | + + + + + | Isabella Whitehead | ECON | Unknown | | + + + + + Care Team Providers + +------+ + | Care Wind Operations Supervisor Name | Role | Phone | [...] Zhou PEARSON | | | | | [phone] | [place] [address] | | +--------+ + + + + [...] [place] | | | | | | [address] | | | | | | | | +--------+---------+ + + + | 07/26/ | Office | Pulmonology | Navdeep Grande, | | | 2019 | Visit | | [address] | | | | | | [place] | | | | | | [id number] | | | | | | | [...]
--- OUTSIDE RECORDS SUMMARY | ~2019-05-03 | XMS | Encounter Summary ---
Demographics + + + | Address | [address] | | | [place] [address] | + + + | Home Phone [...] | | | | | [place] [address] | | + + + + + Care Team Providers + +------+ + | Care Professor Of Biblical Studies Name | Role | Phone | + [...] DEPARTMENT OF | [address] | [place] [address] | | | PATHOLOGY | [address] | | | + + + + + | [facility] DEPARTMENT OF | [address] | [place] [address] | | | PATHOLOGY | [address] [...] | + + + + + | [facility] | [address] | [place] [address] | | | PATHOLOGY | [address] | | | + + + + + | [facility] | [facility] | [place] [address] | | | PATHOLOGY | [address] | | | + + + + + documented in this encounter Visit Diagnoses Not on filedocumented in this encounter"
--- OUTSIDE RECORDS SUMMARY | ~2019-05-03 | XMS | Encounter Summary ---
Demographics + + + | Address | [address] | | | [place] [address] | + + + | Home Phone [...] | | | | | [place] [address] | | + + + + + | Robson Min | ECON | Unknown | | + + + + + | Isabella Whitehead | ECON | Unknown | | + + + + + Care Team Providers + +------+ + | Care Handbag Framer Name | Role | Phone | + [...] | | apnea, | [address] | | | | | unspecified | [address] | [place], | | | | | type | [place], | [place] [address] | | | | | Alveolar | [place] [address] | Phone: | | | | | hypoventilat | Phone: | [phone] | | | | | ion | [phone] | Fax: | | | | | Procedures | Fax: | [phone] | | | | | [place] POLYSOM | [phone] | | | | | | 6/>YRS [...] + + | 11/16/ | Telephone | [facility] | Navdeep Grande, | Results (nocturnal | | 2018 | | PULMONARY [address] | MD [address] | oximetry) | | | | [address] [place], | [place] | | | | | [place] [address] | [address] | | | | | [phone] | | | +--------+ + + + [...] [place] | | | | | | [id number] | | | | | | | | +--------+---------+ + + + | 07/26/ | Office | Pulmonology | Navdeep Grande, | | | 2020 | Visit | | MD Cely GORE | | | | | | [place] | | | | | | [address] | | | | | | | | +--------+---------+ + + + + + +--------+ + + | Name | Type | Priori | Associated Diagnoses | Order Schedule | | | | ty | | | + + +--------+ + + | * [facility] - | Outpatient | [...]
--- OUTSIDE RECORDS SUMMARY | ~2019-05-03 | XMS | Encounter Summary ---
Demographics + + + | Address | [address] | | | [place] [address] | + + + | Home Phone | | + + + | Preferred Language | Unknown | + + + | Marital Status | Single | + + + | Religion Affiliation | Unknown | + + + | Race | Unknown | + + + | Ethnic Group | Unknown | + + + Author + + + | Author | [facility] | | | and [place] | + + + | Organization | [facility] | | | and [...] | | | | | [place] [address] | | + + + + + | Robson Min | ECON | Unknown | | + + + + + | Isabella Whitehead | ECON | Unknown | | + + + + + Care Team Providers + +------+ + | Care Supervisor Testing Name | Role | Phone | + [...] Zhou PEARSON | | | | | [phone] | [place] [address] | | +--------+ + + + + [...] [place] | | | | | | [address] | | | | | | | | +--------+---------+ + + + | 07/26/ | Office | Pulmonology | Navdeep Grande, | | | 2019 | Visit | | [address] | | | | | | [place] | | | | | | [address] | | | | | | | [...]
--- OUTSIDE RECORDS SUMMARY | ~2019-05-03 | XMS | Encounter Summary ---
Demographics + + + | Address | [address] | | | [place] [address] | + + + | Home Phone [...] | | | | | [place] [address] | | + + + + + Care Team Providers + +------+ + | Care Supervisor Remelt Name | Role | Phone | + +------+ + PCP | Unavailable | + +------+ + Encounter Details +--------+ + + + + | Date | Type | Department | Care Team | Description | +--------+ + + + + | 10/31/ | Respiratory | | Other, Faculty | | | 2006 | Therapy | | [phone] | | +--------+ + + + + [...] | | | | | | Rick, MATERNAL FETAL PHYSICIAN | | | | + + + [...] [facility] | [address] | [place], [place] | | | DIAGNOSTICS - | [address] | [address] | | | PULMONARY FUNCTION | | | | + + + + + documented in this encounter Visit Diagnoses Not on filedocumented in this encounter"
--- OUTSIDE RECORDS SUMMARY | ~2019-05-03 | XMS | Encounter Summary ---
Demographics + + + | Address | [address] | | | [place] [address] | + + + | Home Phone [...] | | | | | [place] [address] | | + + + + + | Robson Min | ECON | Unknown | | + + + + + | Isabella Whitehead | ECON | Unknown | | + + + + + Care Team Providers + +------+ + | Care Timber Hewer Name | Role | Phone | + +------+ + | Bart Ba DO | PCP | | + +------+ + Encounter Details +--------+ + + + + | Date | Type | Department | Care Team | Description | +--------+ + + + + | 04/21/ | Hospital | [facility] | Conversion | Pain | | 2013 | Encounter | CONVERSION [address]P [address] | Transaction, | | | | | [address] | Provider Unknown | | | | | [place], [place] | [phone] | | | | | [address] | | | | | | [phone] | | | +--------+ + + + [...] | 0 | 10/08/19 | | | [id number] | every 6 hours as | | [...] [place] | | | | | | [address] | | | | | | | | +--------+---------+ + + + | 07/26/ | Office | Pulmonology | Navdeep Grande, | | | 2019 | Visit | | [address] | | | | | | [place] | | | | | | [address] | | | | | | | [...]
--- OUTSIDE RECORDS SUMMARY | ~2019-05-03 | XMS | Encounter Summary ---
Demographics + + + | Address | [address] | | | [place] [address] | + + + | Home Phone [...] | | | | | [place] [address] | | + + + + + | Robson Min | ECON | Unknown | | + + + + + | Isabella Whitehead | ECON | Unknown | | + + + + + Care Team Providers + +------+ + | Care Retail Center Receptionist Name | Role | Phone | + [...] | | | | | | | [address] | | | | | | | Phone: | | | | | | | [phone] | | | | | | | Fax: | | | | | | | [phone] | | +--------+--------+ + + + + [...] | | Required | | Disorientati | [address] | [address] | | | | | on, | [address] | [place] | | | | | unspecified | [address] [place] | [place] | | | | | Procedures | 3-106 | [address] Phone: | | | | | Specialty | [place] | [phone] | | | | | Services | [address] | Fax: | | | | | Required | Phone: | [phone] | | | | | | [phone] | | +--------+ + + + + [...] without coma, | | | | [place] [address] | | without long-term | | | | [phone] | | current use of | | [...] Sudoku, Mahjong. Play computer/mobile applications such as Thotz and MIND GAMES Avoid sleep deprivation, alcohol, [...] return New symptoms appear Date Last Reviewed: 12/09/201419993276-5438 [employer]. [address] [place] [address]. All righ ts reserved. This information is [...] joint. Hot and cold packs may help. Qiui-xiz-dszutbm and prescription medicines can be ve ry helpful for arthritis. Talk with your healthcare provider about the best treatments for y our condition. Date Last Reviewed: 08/17/201619997944-5799 [employer]. [address] [place] [address], [place] [address]. All righ ts reserved. This information is [...] you take. This includes prescription an d hleh-tsq-ncjeuwf medicines, vitamins, and herbs. Ask if any of the medicines may be causin g your problems. Don't make any changes to prescription medicines without talking to your he [facility] provider first. You [...] speaking, walking, or seeing Date Last Reviewed: 06/17/201719993782-1389 [employer]. [address] [place] [address]. All [facility] ts reserved. This information is not [...] massage, and other methods. Date Last Reviewed: 04/19/201719998073-5476 [employer]. [address] [place] [address], [place] [address]. All [facility] ts reserved. This information is not [...] acupuncture, massage, and others. Date Last Reviewed: 03/19/201719996571-9518 [employer]. [address] [place] [address], [place] [address]. All righ ts reserved. This information is [...] [place] | | | | | | [address] | | | | | | | | +--------+---------+ + + + | 07/26/ | Office | Pulmonology | Navdeep [place], | | | 2019 | Visit | | [address] | | | | | | [place] | | | | | | [address] | | | | | | | [...]
--- OUTSIDE RECORDS SUMMARY | ~2019-05-03 | XMS | Encounter Summary ---
Demographics + + + | Address | [address] | | | [place] [address] | + + + | Home Phone [...] | | | | | [place] [address] | | + + + + + Care Team Providers + +------+ + | Care Environmental Consultant Name | Role | Phone | [...] as of this encounter Progress Notes Interface, Acid Wash Operator In - 05/02/2006 2:20 PM [facility] DATE: 11/12/97 RHEUMATOLOGY CLINIC CHIEF COMPLAINT: [...] the family. SOCIAL HISTORY: She lives in [place], [place] with her son and boyfriend. She [...] Sulindac and Prednisone for the moment. The long-term goal will be to wean the Prednisone [...] M.D. Resident, Internal Medicine Deyvi Lainez M.D. Motor Builder Winder, Rheumatology ES:aster documented in this encounter Plan of Treatment Not on filedocumented as of this encounter Visit Diagnoses Not on filedocumented in this encounter
--- OUTSIDE RECORDS SUMMARY | ~2019-05-03 | XMS | Encounter Summary ---
Demographics + + + | Address | [address] | | | [place] [address] | + + + | Home Phone [...] | | | | | [place] [address] | | + + + + + Care Team Providers + +------+ + | Care Tip Inserter Name | Role | Phone | + +------+ + PCP | Unavailable | + +------+ + Encounter Details +--------+ + + + + | Date | Type | Department | Care Team | Description | +--------+ + + + + | 12/07/ | Results | [facility] | Kacy Caba, | | | 2002 | Only | Medicine at [facility] | [address] | | | | | [address] | [address] | | | | | [address] | [place] [address] | | | | | Mailcode: BAUTISTA Stewart | | | | | | [address] | | | | | | [place], [place] | | | | | | [address] | | | | | | [phone] | | | +--------+ + + + [...] | | + +---------+ + + | [facility] DEPARTMENT OF | | | | | RADIOLOGY | | | | + +---------+ + + documented in this encounter Visit Diagnoses Not on filedocumented in this encounter"
--- OUTSIDE RECORDS SUMMARY | ~2019-05-03 | XMS | Encounter Summary ---
Demographics + + + | Address | [address] | | | [place] [address] | + + + | Home Phone [...] | | | | | [place] [address] | | + + + + + | Robson Min | ECON | Unknown | | + + + + + | Isabella Whitehead | ECON | Unknown | | + + + + + Care Team Providers + +------+ + | Care Rn Palliative Name | Role | Phone | + [...] + + | 10/02/ | Telephone | [facility] | Cecilio Amato MD | Results (gastric | | 2013 | | GASTROENTEROLOGY | [address] | emptying study) | | | | [address] [facility] | [place], [place] | | | | | [address] | [address] | | | | | [address] | [phone] | | | | | [phone] | | | +--------+ + + + [...] [place] | | | | | | [address] | | | | | | | | +--------+---------+ + + + | 07/26/ | Office | Pulmonology | [facility], | | | 2019 | Visit | | [address] | | | | | | [place] | | | | | | [id number] | | | | | | | | +--------+---------+ + + + documented as of this encounter Visit Diagnoses Not on filedocumented in this encounter"
--- OUTSIDE RECORDS SUMMARY | ~2019-05-03 | XMS | Encounter Summary ---
Demographics + + + | Address | [address] | | | [place] [address] | + + + | Home Phone [...] | | | | | [place] [address] | | + + + + + Care Team Providers + +------+ + | Care Stretcher Leveler Operator Helper Name | Role | Phone | + +------+ + PCP | Unavailable | + +------+ + Encounter Details +--------+ + + + + | Date | Type | Department | Care Team | Description | +--------+ + + + + | 11/12/ | Transcribed | All[facility] at | Dictation, Other | Transcribed | | 1997 | | [facility] [address] | | | | | [address] | | | | | | Mailcode: [id number] | | | | | | [address] | | | | | | [facility] | | | | | | [place] [address] | | | | | | [phone] | | | +--------+ + + + [...] as of this encounter Progress Notes Interface, Cloud Developer In - 05/05/2006 1:04 AM PST [address] [address] or November 12, 1997 HERMAN ELMORE MD [address] [facility] [address] [place] [address] RE:CARLINE MIN MR#:[id number] Elmore: We saw your patient, Carline Min, for a rheumatoid consultation at the [facility] on November 12, 1997. The patient was [...] Lainez, or myself. Sincerely, Daniel Laurent M.D. Asbestos Abatement Technician, Internal Medicine Deyvi Lainez M.D. Industrial Hygiene Manager, Rheumatology ECS/AB:reji documented in this encounter Plan of Treatment Not on filedocumented as of this encounter Visit Diagnoses Not on filedocumented in this encounter"
--- OUTSIDE RECORDS SUMMARY | ~2019-05-03 | XMS | Encounter Summary ---
Demographics + + + | Address | [address] | | | [place] [address] | + + + | Home Phone | | + + + | Preferred Language | Unknown | + + + | Marital Status | Single | + + + | Mosque Affiliation | Unknown | + + + [...] | | | | | [place] [address] | | + + + + + | Robson Min | ECON | Unknown | | + + + + + | Isabella Whitehead | ECON | Unknown | | + + + + + Care Team Providers + +------+ + | Care Vice President Mission Integration Name | Role | Phone | + [...] | Sleep | Diagnoses | Harjinder | [facility] | | | Services | Medicine | Sleep | MD Navdeep | Center [address] | | | Required | | apnea, | [address] | [address] | | | | | unspecified | [address] | [place], | | | | | type | [place], | [place] [address] | | | | | Alveolar | [place] [address] | Phone: | | | | | hypoventilat | Phone: | [phone] | | | | | ion | [phone] | Fax: | | | | | Procedures | Fax: | [phone] | | | | | [place] | [phone] | | | | | | 6/>YRS [...] + + | 11/22/ | Hospital | [facility] | [facility] [place], | Sleep apnea, | | 2018 - | Encounter | MED CTR SLEEP | [address] | unspecified type; | | | | CENTER [address] | [place], [place] | Alveolar | | 11/23/ | | [place], [place] | [address] | hypoventilation; | | 2017 | | [address] | | COPD, mild ([facility]) | | | | [phone] | | | +--------+ + + + [...] + + +---------+ + + | [facility] | Inject 10 Units | | 0 [...] [place] | | | | | | [address] | | | | | | | | +--------+---------+ + + + | 07/26/ | Office | Pulmonology | [facility], | | | 2019 | Visit | | [address] | | | | | | [place] | | | | | | [address] | | | | | | | [...]
--- OUTSIDE RECORDS SUMMARY | ~2019-05-03 | XMS | Encounter Summary ---
Demographics + + + | Address | [address] | | | [place] [address] | + + + | Home Phone [...] | | | | | [place] [address] | | + + + + + | Robson Min | ECON | Unknown | | + + + + + | Isabella Whitehead | ECON | Unknown | | + + + + + Care Team Providers + +------+ + | Care Superintendent Car Construction Name | Role | Phone | + [...] Zhou [address]ARSON | | | | | [phone] | [place] [address] | | +--------+ + + + + [...] [place] | | | | | | [address] | | | | | | | | +--------+---------+ + + + | 07/26/ | Office | Pulmonology | [facility], | | | 2019 | Visit | | [address] | | | | | | [place] | | | | | | [id number] | | | | | | | [...]
--- OUTSIDE RECORDS SUMMARY | ~2019-05-03 | XMS | Encounter Summary ---
Demographics + + + | Address | [address] | | | [place] [address] | + + + | Home Phone [...] | | | | | [place] [address] | | + + + + + Care Team Providers + +------+ + | Care Second Helper Name | Role | Phone | + +------+ + PCP | Unavailable | + +------+ + Encounter Details +--------+ + + + + | Date | Type | Department | Care Team | Description | +--------+ + + + + | 10/29/ | Respiratory | | Other, Faculty | | | 2006 | Therapy | | [phone] | | +--------+ + + + + [...] Ambrosio, | | | | | | ENTRY EXAMINER | | | | + + + [...] [facility] | [address] | [place], [place] | | | DIAGNOSTICS - | [address] | [address] | | | PULMONARY FUNCTION | | | | + + + + + documented in this encounter Visit Diagnoses Not on filedocumented in this encounter"
--- OUTSIDE RECORDS SUMMARY | ~2019-05-03 | XMS | Encounter Summary ---
Demographics + + + | Address | [address] | | | [place] [address] | + + + | Home Phone [...] | | | | | [place] [address] | | + + + + + | Robson Min | ECON | Unknown | | + + + + + | Isabella Whitehead | ECON | Unknown | | + + + + + Care Team Providers + +------+ + | Care Precision Aircraft Systems Assembler Name | Role | Phone | + +------+ + | Juanito Avery | DOMONIQUE | | + +------+ + Encounter Details +--------+ + + + + | Date | Type | Department | Care Team | Description | +--------+ + + + + | 09/22/ | Transcribed | [facility] | Mary Malin RRT | | | 2019 | Orders | MED CTR RESPIRATORY | | | | | | THERAPY [address] | | | | | | [place], | | | | | | [place] [address] | | | | | | [phone] | | | +--------+ + + + [...] [place] | | | | | | [address] | | | | | | | | +--------+---------+ + + + | 07/26/ | Office | Pulmonology | [facility], | | | 2019 | Visit | | [address] | | | | | | [place] | | | | | | [address] | | | | | | | | +--------+---------+ + + + documented as of this encounter Visit Diagnoses Not on filedocumented in this encounter"
--- OUTSIDE RECORDS SUMMARY | ~2019-05-03 | XMS | Encounter Summary ---
Demographics + + + | Address | [address] | | | [place] [address] | + + + | Home Phone [...] | | | | | [place] [address] | | + + + + + | Robson Min | ECON | Unknown | | + + + + + | Isabella Whitehead | ECON | Unknown | | + + + + + Care Team Providers + +------+ + | Care Front End Developer Designer Name | Role | Phone | + +------+ + | Juanito Avery | DOMONIQUE | | + +------+ + Reason for Visit +--------+ + | Reason | Comments | +--------+ + | Other | end of study | +--------+ + Encounter Details +--------+ + + + + | Date | Type | Department | Care Team | Description | +--------+ + + + + | 01/19/ | Documentati | [facility] | Nora Francis, | Other (end of study) | | 2019 | on | CARDIOLOGY [place] | Technologist | | | | | [address] | | | | | | [place] | | | | | | [address] | | | | | | [phone] | | | +--------+ + + + [...] documented as of this encounter Progress Notes Nora Francis, Technologist - 01/19/2019 11:59 PM PDT Cardiac Event Monitor Date of Event Monitor: 01/19/19 Referring Physician: Elen Patient:Kait Min : 1970 Age: 48 y.o. female INDICATIONS: Palpitations Procedure: Continuous ambulatory ECG for the duration [...] shortness of breath corresponded to sinus rhythm. Impressions: 1: Sinus rhythm as described above. 2: There was one 7 beat run of non sustained VT. 3: No AV conduction abnormalities detected. 4: Symptoms of "dizziness, fatigue, shortness of breath ", associated with sinus rhythm. Recomendations: Clinical correlation suggested. Laine Batista DO documented in this enco unter Plan of [...] [place] | | | | | | [address] | | | | | | | | +--------+---------+ + + + | 07/26/ | Office | Pulmonology | [facility], | | | 2019 | Visit | | MD [address] | | | | | | [place] | | | | | | [address] | | | | | | | | +--------+---------+ + + + documented as of this encounter Visit Diagnoses + + | Diagnosis | + + | Palpitations | + + documented in this encounter
--- OUTSIDE RECORDS SUMMARY | ~2019-05-03 | XMS | Encounter Summary ---
Demographics + + + | Address | [address] | | | [place] [address] | + + + | Home Phone [...] | | | | | [place] [address] | | + + + + + Care Team Providers + +------+ + | Care Cost Estimating Engineer Name | Role | Phone | [...] | | + +---------+ + + | [facility] DEPARTMENT OF | | | | | RADIOLOGY | | | | + +---------+ + + documented in this encounter Visit Diagnoses Not on filedocumented in this encounter"
--- OUTSIDE RECORDS SUMMARY | ~2019-05-03 | XMS | Encounter Summary ---
Demographics + + + | Address | [address] | | | [place] [address] | + + + | Home Phone [...] | | | | | [place] [address] | | + + + + + | Robson Min | ECON | Unknown | | + + + + + | Isabella Whitehead | ECON | Unknown | | + + + + + Care Team Providers + +------+ + | Care Picker Tender Helper Name | Role | Phone | [...] RN | hypoventilation | | | | [place], | | | | | | [place] [address] | | | | | | [phone] | | | +--------+ + + + [...] [place] | | | | | | [address] | | | | | | | | +--------+---------+ + + + | 07/26/ | Office | Pulmonology | [facility], | | | 2019 | Visit | | [address] | | | | | | [place] | | | | | | [address] | | | | | | | | +--------+---------+ + + + documented as of this encounter Visit Diagnoses + + | Diagnosis | + + | Alveolar hypoventilation Other dyspnea and respiratory abnormality | + + documented in this encounter"
--- OUTSIDE RECORDS SUMMARY | ~2019-05-03 | XMS | Encounter Summary ---
Demographics + + + | Address | [address] | | | [place] [address] | + + + | Home Phone [...] | | | | | [place] [address] | | + + + + + | Robson Min | ECON | Unknown | | + + + + + | Isabella Whitehead | ECON | Unknown | | + + + + + Care Team Providers + +------+ + | Care Spar Cap Beveler Name | Role | Phone | + +------+ + | Ora Slater | PCP | | + +------+ + Reason for Visit + + + | Reason | Comments | + + + | Medication | | | Management | | + + + Encounter Details +--------+ + + + + | Date | Type | Department | Care Team | Description | +--------+ + + + + | 12/09/ | Telephone | [facility] | Jimbo Samayoa MD | Medication | | 2019 | | HOSPITAL NEUROLOGY | [address] | Management | | | | CLINIC [address] | [place] | | | | | [address] [place], | [address] | | | | | [place] [address] | | | | | | [phone] | | | +--------+ + + + [...] [place] | | | | | | [id number] | | | | | | | | +--------+---------+ + + + | 07/26/ | Office | Pulmonology | [facility], | | | 2019 | Visit | | [address] | | | | | | [place] | | | | | | [address] | | | | | | | | +--------+---------+ + + + documented as of this encounter Visit Diagnoses Not on filedocumented in this encounter"
--- OUTSIDE RECORDS SUMMARY | ~2019-05-03 | XMS | Encounter Summary ---
Demographics + + + | Address | [address] | | | [place] [address] | + + + | Home Phone [...] | | | | | [place] [address] | | + + + + + | Robson Min | ECON | Unknown | | + + + + + | Isabella Whitehead | ECON | Unknown | | + + + + + Care Team Providers + +------+ + | Care County Attorney Name | Role | Phone | + +------+ + | Bart Ba DO | PCP | | + +------+ + Encounter Details +--------+ + + + + | Date | Type | Department | Care Team | Description | +--------+ + + + + | 09/18/ | Abstract | [facility] | Cecilio Amato MD | | | 2013 | | GASTROENTEROLOGY | [address] [facility] | | | | | [address] [facility] | [place], [place] | | | | | [address] [place], [place] | [address] | | | | | [address] | [phone] | | | | | [phone] | | | +--------+ + + + [...] [place] | | | | | | [address] | | | | | | | | +--------+---------+ + + + | 07/26/ | Office | Pulmonology | Navdeep Grande, | | | 2019 | Visit | | MD [address] | | | | | | [place] | | | | | | [address] | | | | | | | | +--------+---------+ + + + documented as of this encounter Procedures + +--------+ + + + | Procedure Name | Priori | Date/Time | Associated Diagnosis | Comments | | | ty | | | | + +--------+ + + + | EXTERNAL LAB: AST | Routin | 07/27/2013 | | Results for this | | | e | 10:06 AM | | procedure are in the | | | | PDT | | results section. | + +--------+ + + + | EXTERNAL LAB: ALT | Routin | 07/27/2013 | | Results for this | | | e | 10:06 AM | | procedure are in the | | | | PDT | | results section. | + +--------+ + + + | EXTERNAL LAB: | Routin | 07/27/2013 | | Results for this | | CHOLESTEROL, NON HDL | e | 10:06 AM | | procedure are in the | | LP | | PDT | | results section. | + +--------+ + + + | EXTERNAL LAB: | Routin | 07/27/2013 | | Results for this | | TRIGLYCERIDES | e | 10:06 AM | | procedure are in the | | | | PDT | | results section. | + +--------+ + + + | EXTERNAL LAB: | Routin | 07/27/2013 | | Results for this | | CHOLESTEROL, HDL | e | 10:06 AM | | procedure are in the | | | | PDT | | results section. | + +--------+ + + + | EXTERNAL LAB: | Routin | 07/27/2013 | | Results for this | | CHOLESTEROL, TOTAL | e | 10:06 AM | | procedure are in the | | | | PDT | | results section. | + +--------+ + + + | EXTERNAL LAB: | Routin | 07/27/2013 | | Results for this | | CHOLESTEROL, LDL | e | 10:06 AM | | procedure are in the | | | | PDT | | results section. | + +--------+ + + + | EXTERNAL LAB: | Routin | 07/27/2013 | | Results for this | | HEMOGLOBIN A1C | e | 10:06 AM | | procedure are in the | | | | PDT | | results section. | + +--------+ + + + | LIPID PANEL | Routin | 07/27/2013 | | Results for this | | | e | | | procedure are in the | | | | | | results section. | + +--------+ + + + | HEPATIC FUNCTION | Routin | 07/27/2013 | | Results for this | | PANEL | e | | | procedure are in the | | | | | | results section. | + +--------+ + + + documented in this encounter Results External Lab: AST (07/27/2013 10:06 AM PDT) + +-------+ + + + | Component | Value | Ref Range | Performed | Pathologist | | | | | At | Signature | + +-------+ + + + | AST, | 16 | | EXTERNAL | | | External | | | LAB | | + +-------+ + + + + + | Specimen | + + | Blood specimen | | (specimen) | + + + + | Resulting Agency Comment | + + | [facility] | + + + +---------+ + + | Performing | Address | City/State/Zipcode | Phone Number | | Organization | | | | + +---------+ + + | EXTERNAL LAB | | | | + +---------+ + + External Lab: ALT (07/27/2013 10:06 AM PDT) + +-------+ + + + | Component | Value | Ref Range | Performed | Pathologist | | | | | At | Signature | + +-------+ + + + | ALT, | 15 | | EXTERNAL | | | External | | | LAB | | + +-------+ + + + + + | Specimen | + + | Blood specimen | | (specimen) | + + + + | Resulting Agency Comment | + + | [facility] | + + + +---------+ + + | Performing | Address | City/State/Zipcode | Phone Number | | Organization | | | | + +---------+ + + | EXTERNAL LAB | | | | + +---------+ + + External Lab: Cholesterol, Non HDL LP (07/27/2013 10:06 AM PDT) + +-------+ + + + | Component | Value | Ref Range | Performed | Pathologist | | | | | At | Signature | + +-------+ + + + | Cholesterol | 96 | | EXTERNAL | | | , Total, | | | LAB | | | Non HDL-C | | | | | | (LDL+VLDL), | | | | | | External | | | | | + +-------+ + + + + + | Specimen | + + | Blood specimen | | (specimen) | + + + + | Resulting Agency Comment | + + | [facility] | + + + +---------+ + + | Performing | Address | City/State/Zipcode | Phone Number | | Organization | | | | + +---------+ + + | EXTERNAL LAB | | | | + +---------+ + + External Lab: Triglycerides (07/27/2013 10:06 AM PDT) + +-------+ + + + | Component | Value | Ref Range | Performed | Pathologist | | | | | At | Signature | + +-------+ + + + | Triglycerid | 109 | | EXTERNAL | | | es, | | | LAB | | | External | | | | | + +-------+ + + + + + | Specimen | + + | Blood specimen | | (specimen) | + + + + | Resulting Agency Comment | + + | [facility] | + + + +---------+ + + | Performing | Address | City/State/Zipcode | Phone Number | | Organization | | | | + +---------+ + + | EXTERNAL LAB | | | | + +---------+ + + External Lab: Cholesterol, HDL (07/27/2013 10:06 AM PDT) + +-------+ + + + | Component | Value | Ref Range | Performed | Pathologist | | | | | At | Signature | + +-------+ + + + | HDL | 46.5 | | EXTERNAL | | | Cholesterol | | | LAB | | | , External | | | | | + +-------+ + + + + + | Specimen | + + | Blood specimen | | (specimen) | + + + + | Resulting Agency Comment | + + | [facility] | + + + +---------+ + + | Performing | Address | City/State/Zipcode | Phone Number | | Organization | | | | + +---------+ + + | EXTERNAL LAB | | | | + +---------+ + + External Lab: Cholesterol, Total (07/27/2013 10:06 AM PDT) + +-------+ + + + | Component | Value | Ref Range | Performed | Pathologist | | | | | At | Signature | + +-------+ + + + | Cholesterol | 142 | | EXTERNAL | | | , Total, | | | LAB | | | External | | | | | + +-------+ + + + + + | Specimen | + + | Blood specimen | | (specimen) | + + + + | Resulting Agency Comment | + + | [facility] | + + + +---------+ + + | Performing | Address | City/State/Zipcode | Phone Number | | Organization | | | | + +---------+ + + | EXTERNAL LAB | | | | + +---------+ + + External Lab: Cholesterol, LDL (07/27/2013 10:06 AM PDT) + +-------+ + + + | Component | Value | Ref Range | Performed | Pathologist | | | | | At | Signature | + +-------+ + + + | LDL | 74 | | EXTERNAL | | | Cholesterol | | | LAB | | | , Direct, | | | | | | External | | | | | + +-------+ + + + + + | Specimen | + + | Blood specimen | | (specimen) | + + + + | Resulting Agency Comment | + + | [facility] | + + + +---------+ + + | Performing | Address | City/State/Zipcode | Phone Number | | Organization | | | | + +---------+ + + | EXTERNAL LAB | | | | + +---------+ + + External Lab: Hemoglobin A1c (07/27/2013 10:06 AM PDT) + +---------+ + + + | Component | Value | Ref Range | Performed | Pathologist | | | | | At | Signature | + +---------+ + + + | Hemoglobin | 7.5 (A) | 5.7 - 6.4 | EXTERNAL | | | A1c, | | | LAB | | | external | | | | | + +---------+ + + + + + | Specimen | + + | Blood specimen | | (specimen) | + + + + | Resulting Agency Comment | + + | [facility] | + + + +---------+ + + | Performing | Address | City/State/Zipcode | Phone Number | | Organization | | | | + +---------+ + + | EXTERNAL LAB | | | | + +---------+ + + Lipid Panel (07/27/2013) + +-------+ + + + | Component | Value | Ref Range | Performed | Pathologist | | | | | At | Signature | + +-------+ + + + | VLDL | 22 | mg/dL | | | + +-------+ + + + | CHOL/HDL | 3.1 | | | | | RISK | | | | | + +-------+ + + + + + | Specimen | + + | Blood specimen | | (specimen) | + + Hepatic Function Panel (07/27/2013) + +---------+ + + + | Component | Value | Ref Range | Performed | Pathologist | | | | | At | Signature | + +---------+ + + + | Total | 5.9 (A) | 6.0 - 8.0 g/dL | [facility] | | | Protein | | | [facility] | | | | | | [facility] | | | | | | [facility] - | | | | | | LABORATORY | | + +---------+ + + + | Albumin | 3.7 | g/dL | [facility] | | | | | | [facility] | | | | | | [facility] | | | | | | C[facility] - | | | | | | LABORATORY | | + +---------+ + + + | Globulin | 2.2 | | [facility] | | | | | | [facility] | | | | | | [facility] | | | | | | CENTER - | | | | | | LABORATORY | | + +---------+ + + + | Albumin/Rylie | 1.7 | | [facility] | | | bulin Ratio | | | [facility] | | | | | | [facility] | | | | | | CENTER - | | | | | | LABORATORY | | + +---------+ + + + | Bilirubin | 0.4 | mg/dL | [facility] | | | Total | | | [facility] | | | | | | [facility] | | | | | | CENTER - | | | | | | LABORATORY | | + +---------+ + + + | Bilirubin | 0.1 | mg/dL | [facility] | | | Direct | | | [facility] | | | | | | [facility] | | | | | | CENTER - | | | | | | LABORATORY | | + +---------+ + + + | BILIRUBIN | 0.3 | mg/dL | [facility] | | | INDIRECT | | | [facility] | | | | | | [facility] | | | | | | CENTER - | | | | | | LABORATORY | | + +---------+ + + + | Alkaline | 62 | U/L | [facility] | | | Phosphatase | | | [facility] | | [...] + + + + + | [facility] | [address] | [place] | | | [facility] | | [address] | | | - LABORATORY | | | | + + + + + documented in this encounter Visit Diagnoses Not on filedocumented in this encounter"
--- OUTSIDE RECORDS SUMMARY | ~2019-05-03 | XMS | Encounter Summary ---
Demographics + + + | Address | [address] | | | [place] [address] | + + + | Home Phone [...] | | | | | [place] [address] | | + + + + + | Robson Min | ECON | Unknown | | + + + + + | Isabella Whitehead | ECON | Unknown | | + + + + + Care Team Providers + +------+ + | Care Fiber Product Cutting Machine Operator Name | Role | Phone [...] | | | DR KACI [place], | [phone] | | | | | [place] [address] | | | | | | [phone] | | | +--------+ + + + [...] [place] | | | | | | [address] | | | | | | | | +--------+---------+ + + + | 07/26/ | Office | Pulmonology | Navdeep Grande, | | | 2019 | Visit | | MD Cely GORE | | | | | | [place] | | | | | | [address] | | | | | | | | +--------+---------+ + + + documented as of this encounter Visit Diagnoses Not on filedocumented in this encounter"
--- OUTSIDE RECORDS SUMMARY | ~2019-05-03 | XMS | Encounter Summary ---
Demographics + + + | Address | [address] | | | [place] [address] | + + + | Home Phone [...] | | | | | [place] [address] | | + + + + + | Robson Min | ECON | Unknown | | + + + + + | Isabella Whitehead | ECON | Unknown | | + + + + + Care Team Providers + +------+ + | Care Instructional Support Assistant Name | Role | Phone | + +------+ + PCP | Unavailable | + +------+ + Encounter Details +--------+ + + + + | Date | Type | Department | Care Team | Description | +--------+ + + + + | 12/13/ | [facility] | [facility] | Navdeep [place], | | | 2011 | Encounter | MED CTR XRAY [address] | MD [address] | | | | | [place] | [place] | | | | | [place] [address] | [address] | | | | | [phone] | | | +--------+ + + + [...] | 0 | 10/08/19 | | | wpoeoqvbdy-qdfzpma-q | every 6 hours as | | [...] [place] | | | | | | [address] | | | | | | | | +--------+---------+ + + + | 07/26/ | Office | Pulmonology | Navdeep Grande, | | | 2019 | Visit | | [address] | | | | | | [place] | | | | | | [address] | | | | | | | [...] Performed At | + + + | [facility] Diagnostic Imaging Department | [facility] | | [address] [facility] | [facility] | | NONCONTRAST CT CHEST | DIAG IMG | | CLINICAL HISTORY: FOLLOW UP CAVITARY LESIONS RIGHT LUNG. | | | TECHNIQUE: Axial images are obtained from the thoracic inlet through | | | upper abdomen without the use of contrast. COMPARISON: August | | | 2011 from [place], [place]. October 2005 from [facility] | | | [facility]. FINDINGS: Thick-walled cavitary lesions | | | [...] | | 16:53 Transcribed Date/Time: 12/14/2011 17:08 Tonal Regulator: | | | <Electronically Signed by Ace Avery MD> 12/14/11 | | | 1754 | | + + + + + | Procedure Note | + + | Demario, Rad Conversion - 05/26/2013 5:55 PM [facility] | | Diagnostic Imaging Department | | [address] [facility] | | | | | | | | NONCONTRAST CT CHEST | | | | CLINICAL HISTORY: FOLLOW UP CAVITARY LESIONS RIGHT LUNG. | | | | TECHNIQUE: Axial images are obtained from the thoracic inlet through upper | | abdomen without the use of contrast. | | | | COMPARISON: August 2011 from [place], [place]. October 2005 from [facility] | [facility]. | | | | FINDINGS: [...] | Transcribed Date/Time: 12/14/2011 17:08 | | Tonal Regulator: | | <Electronically Signed by Ace Avery MD> 12/14/11 1754 | + + + +---------+ + + | Performing | Address | City/State/Zipcode | Phone Number | | Organization | | | | + +---------+ + + | [place] | | | | | [facility] | | | | + +---------+ + + documented in this encounter Visit Diagnoses Not on filedocumented in this encounter"
--- OUTSIDE RECORDS SUMMARY | ~2019-05-03 | XMS | Encounter Summary ---
Demographics + + + | Address | [address] | | | [place] [address] | + + + | Home Phone | | + + + | Preferred Language | Unknown | + + + | Marital Status | Single | + + + | Quaker Affiliation | Unknown | + + + [...] | | | | | [place] [address] | | + + + + + | Robson Escobar | ECON | Unknown | | + + + + + | Isabella Whitehead | ECON | Unknown | | + + + + + Care Team Providers + +------+ + | Care Subgrade Tester Name | Role | Phone | [...] | | 2013 - | Encounter | [facility] | MD [address] | elevated myocardial | | | | CARE FLOOR [address] | [place] [address] | infarction) ([facility]); | | 03/24/ | | [address] | [phone] | Current smoker; RA | | 2012 | | [place], [place] | | (rheumatoid | | | | [address] | | arthritis) ([facility]); | | | | [phone] | | ARF (acute renal | | | | | | failure) ([facility]); | | | | | | Bacterial pneumonia, | | | | | | unspecified; COPD | | | | | | exacerbation ([facility]); | | | | | | Elevated brain | | | | | | natriuretic peptide | | | | | | (BNP) level; | | | | | | Hypoxemia; Abnormal | | | | | | LFTs; Hyponatremia; | | | | | | Hyperkalemia; DM | | | | | | (diabetes mellitus) | | | | | | ([facility]); Tobacco | | | | | [...] Cobian MD at 03/24/13 1051 Author: Arcadio Cobian MD Service: Hospitalist Author Type: Physician Filed: 03/24/13 1056 Date of Service: 03/24/13 105 Status: Signed Warp Trucker: Arcadio Cobian MD (Physician) [facility] Service: Hospitalist Physician Discharge Summary Pt: Carline Escobar AGE/SEX: 42 y.o. female ROOM: [facility]44-1 PCP: BART BA : 1970 Admit date: [...] and had elevated Trop[ with possible NSTE LA and possible underlying PNA Bacterial pneumonia, unspecified [...] Take 1 tablet by mouth daily. Nebulizer (medical case worker) Dispense and provide instruction as needed. 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 You may get these medications from any pharmacy. aspirin 81 MG EC tablet fluticasone-salmeterol 250-50 MCG/DOSE ipratropium-albuterol 0.5-2.5 mg/3mL levofloxacin 500 MG tablet Nebulizer (medical case worker) Activity: activity as tolerated Diet: regular diet [...] | 0 | 10/08/19 | | | bvujtizrjg-ovdkekv-x | every 6 hours as | | [...] 03/24/131552 Date of Service: 03/24/131552 Status: Signed Warp Trucker: Bernardo Avery RN (Registered Nurse) Discharge instructions reviewed with pt and family. IV removed, cannula intact. No complain s, concerns or questions at this time. Discharged to home/self care per private vehicle. BERNARDO AVERY RN Ayanna Rodríguez MSW - 03/24/2013 3:05 PM PST Case Management by EMA Fishman at 03/24/13 5873 Author: EMA Fishman Service: (none) Author Type: Donkey Ride Operator Filed: 03/24/13 8684 Date of Service: 03/24/13 115 Status: Signed Warp Trucker: EMA Fishman (Donkey Ride Operator) 03/22/13 1100 Discharge Planning Evaluation Living Arrangements [...] this time. Community resources utilized / needed: [employer] for home 02 Assistance in transportation: family [...] Date of Service: 03/24/13 1436 Status: Signed Warp Trucker: Crystal Dunaway RRT (Registered Respiratory Therapist) [facility] Department of Respiratory Skilled Nursing Oxygen Evaluation (Evaluation is valid for 48 [...] 03/24/13848 Date of Service: 03/24/13846 Status: Signed Warp Trucker: Vinny Strickland MD (Physician) Nuc images reviewed, they are normal. I think small troponin elevation was not due to an LA, but to hypoxia from respiratory issu es. She also does not have CHF. Will sign off. I did discuss the advisability of quitting smoking. Miriam Burden MD - 03/23/2013 6:53 PM PSTFormatting of this note might be different from the origin al. Progress Notes by Pedro Hester MD at 03/23/131852 Author: Pedro Hester MD Service: Nephrology Author Type: Physician Filed: 03/23/131907 Date of Service: 03/23/131852 Status: Signed Warp Trucker: Pedro Hester MD (Physician) PCP : BART [...] charting completed later after rounds. Dictation software, [employer]hawk, used which may contain error for similar [...] Service: Hospitalist Author Type: Physician Filed: 03/23/13 1159 Date of Service: 03/23/13 1146 Status: Signed Warp Trucker: Arcadio Cobian MD (Physician) [facility] Service: Hospitalist Progress Note Pt: Carline Escobar AGE/SEX: 42 y.o. female ROOM: [address] [place] [address] : 1970 PCP: BART BA ADMIT DATE: 03/21/2013 TODAY'S DATE: 03/23/2013 Hospital Day/Hospital Course: LOS: 2 days 42 YO F with PMHof HTN, DM2, RA came with SOB and and had elevated Trop[ with possible NSTE LA and possible underlying PNA SUBJECTIVE: Patient seen [...] and had elevated Trop[ with possible NSTE LA and possible underlying PNA NSTEMI (non-ST elevated myocardial infarction): Though Trop is slightly elevated but Doubt she had real LA? I DW Dr. Strickland and will do [...] COBIAN MD, FACP 03/23/2013 11:46 AM inny Strickland MD - 03/23/2013 8:49 AM PST Progress Notes by Vinny Strickland MD at 03/23/13 0849 Author: Vinny Strickland MD Service: (none) Author Type: Physician Filed: 03/23/13 0852 Date of Service: 03/23/13 0849 Status: Signed Warp Trucker: Vinny Strickland MD (Physician) No complaints. Mildly [...] Date of Service: 03/22/13 1306 Status: Signed Warp Trucker: Arcadio Cobian MD (Physician) [facility] Service: Hospitalist Progress Note Pt: Carline Escobar AGE/SEX: 42 y.o. female ROOM: 4447/4447-1 : 1970 PCP: BART BA ADMIT DATE: 03/21/2013 TODAY'S DATE: 03/22/2013 Hospital Day/Hospital Course: LOS: 1 day 42 YO F with PMHof HTN, DM2, RA came with SOB and and had elevated Trop[ with possible NSTE LA and possible underlying PNA SUBJECTIVE: Patient seen [...] and had elevated Trop[ with possible NSTE LA and possible underlying PNA NSTEMI (non-ST elevated [...] Oxana Gamino RD Service: (none) Author Type: Machine Fitter Filed: 03/22/13 1037 Date of Service: 03/22/13 1025 Status: Signed Warp Trucker: Oxana Gamino RD (Machine Fitter) Elevated blood sugars, was 307 this am. [...] remain elevated. Oxana Gamino RD, CDE, Inpatient Machine Fitter 03/22/2013 10:37 AM onversion Transaction , Provider Unknown - 03/21/2013 11:16 PM PST Progress Notes by Loni Hameed RPH at 03/21/132315 Author: Loni Hameed RPH Service: (none) Author Type: Pharmacist Filed: 03/21/132315 Date of Service: 03/21/132315 Status: Signed Warp Trucker: Loni Hameed RPH (Pharmacist) Clinical Pharmacy Note: [...] [place] | | | | | | [phone] | | | | | | | | +--------+---------+ + + + | 07/26/ | Office | Pulmonology | Navdeep Grande, | | | 2020 | Visit | | [address] | | | | | | [place] | | | | | | [address] | | | | | | | [...] At | + + + | [facility] SEC[facility] MYOCARDIAL PERFUSION SPECT - STRESS AND REST [...] Conversion - 12/09/2018 8:13 PM PDT CARLINE ESCOBARFL MYOCARDIAL PERFUSION | | SPECT - STRESS [...] | | | | | INDICATIONS ACUTE LA PNEUMONIA, COPD CONCLUSIONS | | | 1. [...] | posterior mitral valve leaflet. Tricuspid Valve: Xbam-ej-pzlledab | | | tricuspid regurgitation present. Tricuspid [...] 72.21 ml D-E Excursion: 1.51 cm E-F [place]: | | | 0.07 m/s EPSS: 0.73 [...] mmHg TR Vmax: 3.55 m/s TV A Manjeet: 0.73 m/s TV Dec [place]: | | | 6.25 m/s2 TV Dec Time: 121.02 ms TV E Manjeet: 0.75 m/s TV E/A | | | Ratio: 1.03 Hr Assistant: ERASMO Authenticated by: Vinny | | | Marco A NEFF Report Date/Time: 03-22-2013 12:44:09 | | + + + + + | Procedure Note | + + | Jose Hanks Conversion - 12/09/2018 8:13 PM PDT Patient Name: Anupam ESCOBAR of | | : 1970 Performing Physician: Vinny Strickland, | | INDICATIONS A | | CUTE LA PNEUMONIA, COPD CONCLUSIONS 1. Good pump, moderate [...] posterior mitral valve leaflet.Tricuspid Valve: | | Gsgf-rk-ouzjblrq tricuspid regurgitation present.Tricuspid Valve: There is moderate [...] Major: 4.31 cmRVIDd: 3.51 cmLAAs A2C: 17.11 [id number] A-L | | A2C: 55.22 mlLALs A2C: 4.50 cmAo Diam: 3.51 cmAV Cusp: 2.42 cmLA Diam: 4.02 | | cmLA/Ao: 1.14%FS: 33.70 %EDV(Teich): 115.90 mlEF(Teich): 62.30 %ESV(Teich): | | 43.69 mlIVSd: 0.89 cmIVSs: 1.28 cmLVIDd: 4.95 cmLVIDs: 3.28 cmLVPWd: 0.89 | | cmLVPWs: 1.50 cmSV(Teich): 72.21 mlD-E Excursion: 1.51 cmE-F [place]: 0.07 | | m/sEPSS: 0.73 cmIVC diameter: 2.47 cmIVC collapse: 1.11 cmIVC % collapse: 52.36 | | %HR: 78.78 BPMAV maxP.53 mmHgAV meanP.92 mmHgAV Vmax: 1.46 m/Viri Vmean: | | 1.06 m/Viri VTI: 33.32 cmAVA Vmax: 3.14 cm2AVA (VTI): 2.80 [id number] Dopp: 3.45 | | l/xzlj0OIWN Dopp: 7.15 l/minHR: 76.55 BPMLVOT maxP.44 mmHgLVOT [...] 3.55 m/sTV A Manjeet: 0.73 m/sTV Dec [place]: 6.25 m/s2TV Dec Time: 121.02 msTV E Manjeet: | | 0.75 m/sTV E/A Ratio: 1.03 Hr Assistant: KIMuthenticated by: Vinny Strickland | | MDReport [...] | |D-E Excursion: 1.51 cm | |E-F [place]: 0.07 m/s | |EPSS: 0.73 cm | [...] A Manjeet: 0.73 m/s | |TV Dec [place]: 6.25 m/s2 | |TV Dec Time: 121.02 ms | |TV E Manjeet: 0.75 m/s | |TV E/A Ratio: 1.03 | | | |Hr Assistant: KVW | |Authenticated by: Vinny Strickland MD [...] 42 years FemaleCT | | CHEST WO GFANOBDN75/4/2013 7:10 AM HISTORY: Shortness of breath, hypoxia [...] + + | Historically converted procedure from [facility] environment | EXTERNAL LAB | + [...] (500), | | | | | | deputy editor in chief NICK GOMEZ (2) | | | | | | on 03/22/2013 5:26:12 AM | | | | | | | | | | + + + + + + + + | Specimen | + + | | + + + + + | Narrative | Performed At | + + + | Historically converted procedure from [facility] environment | EXTERNAL LAB | + [...]
--- OUTSIDE RECORDS SUMMARY | ~2019-05-03 | XMS | Encounter Summary ---
Demographics + + + | Address | [address] | | | [place] [address] | + + + | Home Phone [...] | | | | | [place] [address] | | + + + + + | Robson Min | ECON | Unknown | | + + + + + | Isabella Whitehead | ECON | Unknown | | + + + + + Care Team Providers + +------+ + | Care Sales Advisor Name | Role | Phone | [...] | | | disease, | [place], | [place] [address] | | | | | unspecified | [place] | Phone: | | | | | (HCC) | [address] | [phone] | | | | | Obstructive | Phone: | Fax: | | | | | sleep apnea | [phone] | [phone] | | | | | (adult) | Fax: | | | | | | (pediatric) | [phone] | | | | | | Procedures | | | | | | | F/U MARITA CRUZ | | | | | | | DARRICK | | | | | | | HARJINDER | | | | | | | 07/18/18 | | | +--------+--------+ + + + + Encounter Details +--------+---------+ + + + | Date | Type | Department | Care Team | Description | +--------+---------+ + + + | 07/18/ | Office | [facility] | Navdeep Grande, | COPD exacerbation | | 2019 | Visit | PULMONARY [address] | MD [address] | ([facility]) (Primary Dx); | | | | [place], | [place], [place] | COPD, mild ([facility]); | | | | [place] [address] | [address] | Alveolar | | | | [phone] | | hypoventilation; | | | | [...] worse Dizziness or weakness Date Last Reviewed: 12/19/201519999383-4508 The [employer]. [address] [place] [address]. All righ ts reserved. This information is [...] Min reports 2 hospitalizations in 2018 at [facility] in [facility]. From the patient's description it [...] Dr. Walker on July 28. Apparently the home medical company removed her IVAPS from the home within [...] Ms. Min apparently was evaluated by her strapper operator, Dr. Becerra, within the last several weeks in [facility]. No co ncerns were identified regarding her [...] 50,000 Units by mouth Once a w [place]., Disp: , Rfl: fluticasone-salmeterol (ADVAIR DISKUS) 250-50 [...] have requested to Ms. Min that her non-Marianna providers forward copies of their assessments for [...] [place] | | | | | | [address] | | | | | | | | +--------+---------+ + + + | 07/26/ | Office | Pulmonology | Navdeep Grande, | | | 2019 | Visit | | [address] | | | | | | [place] | | | | | | [address] | | | | | | | [...]
--- OUTSIDE RECORDS SUMMARY | ~2019-05-03 | XMS | Encounter Summary ---
Demographics + + + | Address | [address] | | | [place] [address] | + + + | Home Phone [...] | | | | | [place] [address] | | + + + + + [...] Zhou PEARSON | | | | | [phone] | [place] [address] | | +--------+ + + + + [...] [place] | | | | | | [address] | | | | | | | | +--------+---------+ + + + | 07/26/ | Office | Pulmonology | Navdeep Grande, | | | 2019 | Visit | | [address] | | | | | | [place] | | | | | | [id number] | | | | | | | [...]
--- OUTSIDE RECORDS SUMMARY | ~2019-05-03 | XMS | Encounter Summary ---
Demographics + + + | Address | [address] | | | [place] [address] | + + + | Home Phone [...] | | | | | [place] [address] | | + + + + + | Robson Min | ECON | Unknown | | + + + + + | Isabella Whitehead | ECON | Unknown | | + + + + + Care Team Providers + +------+ + | Care Chief Unit Forester Name | Role | Phone | + [...] RN | Alveolar | | | | [place], | | hypoventilation | | | | [place] [address] | | | | | | [phone] | | | +--------+ + + + [...] [place] | | | | | | [address] | | | | | | | | +--------+---------+ + + + | 07/26/ | Office | Pulmonology | Navdeep Grande, | | | 2019 | Visit | | MD Cely GORE | | | | | | [place] | | | | | | [id number] | | | | | | | | +--------+---------+ + + + documented as of this encounter Visit Diagnoses + + | Diagnosis | + + | COPD, mild (HCC) Chronic airway obstruction, not elsewhere classified | + + | Alveolar hypoventilation Other dyspnea and respiratory abnormality | + + documented in this encounter"
--- OUTSIDE RECORDS SUMMARY | ~2019-05-03 | XMS | Encounter Summary ---
Demographics + + + | Address | [address] | | | [place] [address] | + + + | Home Phone [...] | | | | | [place] [address] | | + + + + + | Robson Min | ECON | Unknown | | + + + + + | Isabella Whitehead | ECON | Unknown | | + + + + + Care Team Providers + +------+ + | Care Pilot Safety Inspector Name | Role | Phone | [...] | | | | reflux | [address] [facility] | | | | | Abdominal | BLVD | [address] | | | | | pain, | [place], [place] | AVE | | | | | generalized | [address] | [place] | | | | | Procedures | Phone: | [address] | | | | | [place] Gastric | [phone] | Phone: | | | | | Emptying | Fax: | [phone] | | | | | | [phone] | Fax: | | | | | | | [phone] | +--------+--------+ + + + + Reason [...] | | | | | bowel | [address] | [address] | | | | | syndrome | [address] | [place], | | | | | Other | [place] | [place] [address] | | | | | specified | [address] | Phone: | | | | | gastritis | [place], [place] | [phone] | | | | | with | [address] | Fax: | | | | | hemorrhage | Phone: | [phone] | | | | | Unspecified | [phone] | | | | | | gastritis [...] + + | 09/20/ | Office | [facility] | Cecilio Amato MD | Abdominal pain, | | 2013 | Visit | GASTROENTEROLOGY | [address] | generalized (Primary | | | | [address] [place] | [place], [place] | Dx); Esophageal | | | | [address] [place] [address] | [address] | reflux | | | | [address] | [phone] | | | | | [phone] | | | +--------+---------+ + + + [...] 50 mg by mouth 4 times daily. jnkfipwfei-waiazuk-nnjkndpd (BUTALBITAL COMPOUND/ASA) per tablet One tablet by [...] pain Diabetes mellitus, type 2 ([facility]) Vitamin D deficiency Hypercholesterolemia Hypothyroidism Panic anxiety [...] Ramos MD - 0 09/20/2013 12:00 AM [facility] GASTROENTEROLOGY [address] [address] FAX: [phone] OFFICE VISIT CHIEF COMPLAINT: Abdominal pain. HISTORY [...] Cecilio Amato MD / SABIHA JOB #: [id number] signed by Cecilio Amato MD at 09/20/2013 [...] [place] | | | | | | [address] | | | | | | | | +--------+---------+ + + + | 07/26/ | Office | Pulmonology | Navdeep Grande, | | | 2019 | Visit | | [address] | | | | | | [place] | | | | | | [address] | | | | | | | [...]
--- OUTSIDE RECORDS SUMMARY | ~2019-05-03 | XMS | Encounter Summary ---
Demographics + + + | Address | [address] | | | [place] [address] | + + + | Home Phone | | + + + | Preferred Language | Unknown | + + + | Marital Status | Single | + + + | Mormon Affiliation | Unknown | + + + [...] | | | | | [place] [address] | | + + + + + | Robson Min | ECON | Unknown | | + + + + + | Isabella Whitehead | ECON | Unknown | | + + + + + Care Team Providers + +------+ + | Care Electrician Rectifier Maintenance Name | Role | Phone | + +------+ + | Bart Ba DO | PCP | | + +------+ + Encounter Details +--------+ + + + + | Date | Type | Department | Care Team | Description | +--------+ + + + + | 09/18/ | Abstract | [facility] | Cecilio Amato MD | | | 2013 | | GASTROENTEROLOGY | [address] [facility] | | | | | [address] [facility] | [place], [place] | | | | | [address] [place], [place] | [address] | | | | | [address] | [phone] | | | | | [phone] | | | +--------+ + + + [...] [place] | | | | | | [address] | | | | | | | | +--------+---------+ + + + | 07/26/ | Office | Pulmonology | Navdeep Grande, | | | 2019 | Visit | | MD [address] | | | | | | [place] | | | | | | [address] | | | | | | | [...] [place] | | | [facility] | | [address] | | | - LABORATORY | | | | + + + + + documented in this encounter Visit Diagnoses Not on filedocumented in this encounter"
--- OUTSIDE RECORDS SUMMARY | ~2019-05-03 | XMS | Encounter Summary ---
Demographics + + + | Address | [address] | | | [place] [address] | + + + | Home Phone [...] | | | | | [place] [address] | | + + + + + Care Team Providers + +------+ + | Care Treer Name | Role | Phone | + [...] Clinic | | | | | | [facility], [address] | | | | | | [place], [place] | | | | | | [address] | | | | | | [phone] | | | +--------+ + + + [...] + +---------+ + + | [facility] DEPARTMENT OF | | | | | RADIOLOGY | | | | + +---------+ + + documented in this encounter Visit Diagnoses Not on filedocumented in this encounter"
--- OUTSIDE RECORDS SUMMARY | ~2019-05-03 | XMS | Encounter Summary ---
Demographics + + + | Address | [address] | | | [place] [address] | + + + | Home Phone [...] | | | | | [place] [address] | | + + + + + | Robson Min | ECON | Unknown | | + + + + + | Isabella Whitehead | ECON | Unknown | | + + + + + Care Team Providers + +------+ + | Care Zone Manager Name | Role | Phone | [...] | | [place], [place] | [place] [address] | ([facility]) (Primary Dx); | | 2018 | | [address] | [phone] | Pneumonia of both | | | | [phone] | | lungs due to | | | | | Aidan Dumont, | infectious organism, | | | | | MD [address] | unspecified part of | | | | | [place] [address] | lung; Acute | | | | | [phone] | metabolic | | | | | | encephalopathy; | | | | | Dashawn Nettles, | Acute renal failure | | | | | MD [address] | with other specified | | | | | [place] [address] | pathological lesion | | | | | [phone] | in kidney (HCC) | | | [...] No significant interval change. Dictated by: Santana Wakler Electronically Sign ed by: Santana Walker on [...] TIMOTHY Singleton [address] [place] [address] In 1 week Template: I certify that [...] times per week for 4 wee ks. CALF SKINNER for to be seen ___ times per week for ___ weeks. REMITTANCE CLERK for to be seen ___ times per week for ___ weeks. WAGON WINDER for to b e seen ___ times [...] 08/19/2018 Co-signer: Dashawn Nettles MD NPI # [id number] Date: 08/19/2018 (Only need MD jansen if a PA/DIRECTOR OF MARKETING ANALYTICS referring) Examples: ? Clinical finding to support the need for services: Requires long-term/physical trainer apy for ? Evidence of Homebound status: [...] have a valid medical license in the [facility] (this wi ll be the physician who will sign Home Health POC) Electronically signed by: Dashawn Nettles 08/19/2018 8:50 [facility] Time spent discharging this patient: 20 minutes spent caring for this patient. documented in this encounter Discharge Instructions AttachmentsThe following attachments cannot be sent through Care Everywhere.Adult, Pneumoni a (Qatari)Smoking,Health Effects of (Qatari)Smoking Cessation (Qatari)documented in thi s encounter Medications at Time [...] + + +---------+ + + | CRISTAL FUNEZAR | Inject 10 Units | | 0 [...] aka: TESSIE Electronically signed by: Radames Saucedo, PharmD 08/19/2018 [...] (L/min) Av.1 Min: 1.5 Max: 50 08/16 1901 - 08/18 0700 In: 5347.5 [P.O.:2166; I.V.:3012.9] [...] 0510 08/16/18 2357 08/16/18 1806 08/16/18 1205 08/16/1851608/15/18 0839 POCGLU 149* -- 201* 150* 189* 172* -- 181* 211* 234* < > -- < > -- GLU -- 196* -- -- -- -- 201* -- -- -- -- 228* -- 209* < > = values in this interval not displayed. Labs/Studies: Recent Labs Lab 08/18/1850908/17/1850908/16/1851608/15/18 0839 WBC 4.5 3.2* 2.5* 3.7* HGB 10.7* 9.9* 9.5* 9.9* HCT 32.9* 30.8* 29.9* 31.9* PLT 218 228 225 232 Recent Labs Lab 08/18/1850908/17/1850908/16/1851608/15/18 0839 NA 134 140 140 138 K [...] signed by: Dashawn Nettles 08/18/2018 10:38 [facility] Portions of this chart may [...] signed by: Dashawn Nettles 08/17/2018 8:50 [facility] Portions of this chart may have been created with voice recognition software. Occasional wo rd or "sound-alike" substitutions may have occurred due to the inherent limitation of voice recognition software. Read the chart carefully and recognize, using context, where these sub stitutions have occurred. uan Garcia RRT - 08/16/2018 10:56 PM PDTUnable to fully assess far right side of RML and RLL at this time due to Pt position; RT to continue to monitor and assess. Center RML and RLL remain co arse and diminished Maryana Guillen, PharmD - 08/16/2018 12:13 PM PDTMedication History Completed Medication history was completed using: -medication list faxed from [facility] Major discrepancies noted: patient was not coherent enough to obtain an accurate medication list from her at the time of admission and subsequently has ended up intubated. Obtained a medication fill history of [employer] and updated the medication from the most recent fill his tory. Patient is currently up to date on her pneumococcal vaccine. PPSV23: 04/04/09, 03/19/13, 01/10/15 PCV13: 03/19/13, 04/24/14 Please see [facility] med list for updated medication list. Electronically Signed by: Maryana Denise, Viviana 08/16/2018 12:13 Dashawn Guevara MD - 08/16/2018 [...] signed by: Dashawn Nettles 08/16/2018 8:24 [facility] Portions of this chart may [...] at this time.Electronically signed by ANGELITA Olmstead t 08/16/2018 3:22 AM PDTdocumented in this encounter [...] [place] | | | | | | [address] | | | | | | | [...] + + | [place] [facility] | [address] | [place] [address] | [phone] | | HOSPITAL LABORATORY | | | [...] + + | [place] | [address] | [place] [address] | [phone] | | HOSPITAL LABORATORY | | | [...] + + | [place] [facility] | [address] | [place] [address] | [phone] | | HOSPITAL LABORATORY | | | [...] + + | [place] [facility] | [address] | [place] [address] | [phone] | | HOSPITAL LABORATORY | | | [...] + + | [place] | [address] | [place] [address] | [phone] | | HOSPITAL LABORATORY | | | [...] + + | [place] | [address] | [place] [address] | [phone] | | HOSPITAL LABORATORY | | | [...] + + | [place] [facility] | [address] | [place] [address] | [phone] | | HOSPITAL LABORATORY | | | [...] + + | [place] [facility] | [address] | [place] [address] | [phone] | | HOSPITAL LABORATORY | | | [...] | mL/min/1.73m2 | [facility] | | | STATELESS | | | HOSPITAL | | | [...] + + | [place] [facility] | [address] | [place] [address] | [phone] | | HOSPITAL LABORATORY | | | [...] + + | [place] [facility] | [address] | [place] [address] | [phone] | | HOSPITAL LABORATORY | | | [...] + + | [place] [facility] | [address] | [place] [address] | [phone] | | HOSPITAL LABORATORY | | | [...] + + | [place] [facility] | [address] | [place] [address] | [phone] | | HOSPITAL LABORATORY | | | [...] + + | [place] [facility] | [address] | [place] [address] | [phone] | | HOSPITAL LABORATORY | | | [...] + + | [place] [facility] | [address] | [place] [address] | [phone] | | HOSPITAL LABORATORY | | | [...] significant interval | | change.Dictated by: Santana Taylorectronically Signed by: Santana Walker on 08/17/2018 | | 10:00 AM | | | [...] + + | [place] [facility] | [address] | [place] [address] | [phone] | | HOSPITAL LABORATORY | | | [...] + + | [place] [facility] | [address] | [place] [address] | [phone] | | HOSPITAL LABORATORY | | | [...] + + | [place] [facility] | [address] | [place] [address] | [phone] | | HOSPITAL LABORATORY | | | [...] | mL/min/1.73m2 | [facility] | | | STATELESS | RATE,ESTIMATED | | HOSPITAL | | | | mL/min/1.98a3Zqvn than | | LABORATORY | | | [...] + + | [place] [facility] | [address] | [place] [address] | [phone] | | HOSPITAL LABORATORY | | | [...] + + | [place] | [address] | [place] [address] | [phone] | | HOSPITAL LABORATORY | | | [...] + + | [place] [facility] | [address] | [place] [address] | [phone] | | HOSPITAL LABORATORY | | | [...] + + | [place] [facility] | [address] | [place] [address] | [phone] | | HOSPITAL LABORATORY | | | [...] + + | [place] | [address] | [place] [address] | [phone] | | HOSPITAL LABORATORY | | | [...] + + | [place] [facility] | [address] | [place] [address] | [phone] | | HOSPITAL LABORATORY | | | [...] + + | [place] | [address] | [place] [address] | [phone] | | HOSPITAL LABORATORY | | | [...] + + | [place] | [address] | [place] [address] | [phone] | | HOSPITAL LABORATORY | | | [...] + + | [place] | [address] | [place] [address] | [phone] | | HOSPITAL LABORATORY | | | [...] + + | [place] [facility] | [address] | [place] [address] | [phone] | | HOSPITAL LABORATORY | | | [...] | 0.00 | 0.00 - 0.01 | [facility] | | | nRBC | | K/uL [...] + + | [place] [facility] | [address] | [place] [address] | [phone] | | HOSPITAL LABORATORY | | | [...] | mL/min/1.73m2 | [facility] | | | STATELESS | | | HOSPITAL | | | [...] + + | [place] [facility] | [address] | [place] [address] | [phone] | | HOSPITAL LABORATORY | | | [...] + + | [place] [facility] | [address] | [place] [address] | [phone] | | HOSPITAL LABORATORY | | | [...] + + | [place] [facility] | [address] | [place] [address] | [phone] | | HOSPITAL LABORATORY | | | [...] + + | [place] [facility] | [address] | [place] [address] | [phone] | | HOSPITAL LABORATORY | | | [...] + + | [place] [facility] | [address] | [place] [address] | [phone] | | HOSPITAL LABORATORY | | | [...] | | | [facility] | | | [facility] | | | | | | HOSPITAL [...] + + | [place] [facility] | [address] | [place] [address] | [phone] | | HOSPITAL LABORATORY | | | [...] + + | [place] | [address] | [place] [address] | [phone] | | HOSPITAL LABORATORY | | | [...] + + | [place] | [address] | [place] [address] | [phone] | | HOSPITAL LABORATORY | | | [...] + + | [place] [facility] | [address] | [place] [address] | [phone] | | HOSPITAL LABORATORY | | | [...] + + | [facility] | [address] | [place] [address] | [phone] | | HOSPITAL LABORATORY | | | [...] + + | [facility] | [address] | [place] [address] | [phone] | | HOSPITAL LABORATORY | | | | + + + + + ECG 12 lead (08/15/2018 8:53 AM PDT) + + | Specimen | + + | | + + + + + | Narrative | Performed At | + + + | Heart Rate: 78 | [place] [facility] | | bpmQRS Interval: 94 msQT Interval: 436 msQTC Interval: 497 msP Idalou: | TRACEMASTER | | 18 degQRS Idalou: -32 degT Wave Idalou: 37 degP-R Interval: 244 msec- | | | ABNORMAL ECG -SINUS RHYTHMFIRST DEGREE AV BLOCKCONSIDER LEFT ATRIAL | | | ABNORMALITYLEFT AXIS DEVIATIONBORDERLINE PROLONGED QT INTERVAL | | |QRS Idalou: -32 deg | | |T Wave Idalou: 37 deg | | |P-R Interval: 244 [...] | + +---------+ + + | [place] TRACEMASTER | | | | + +---------+ [...] | Cocaine | Negative | Negative | [place] | | | Screen, | | | [...] emergency medical use only. Not | [place] | | intended for legal purposes. Chain of Custody not maintained. | HOSPITAL | | Confirmation of Positive results must be ordered by the attending | LABORATORY | | physician. Flfj-dvp-wncjmsq drugs may cross react with some methods. [...] + + | [place] [facility] | [address] | [place] [address] | [phone] | | HOSPITAL LABORATORY | | | [...] - 1.030 | [place] | | | [place] | | | [facility] | | | [...] + + | [place] [facility] | [address] | [place] [address] | [phone] | | HOSPITAL LABORATORY | | | [...] + + | [place] | [address] | [place] [address] | [phone] | | HOSPITAL LABORATORY | | | [...] + + | [place] | [address] | [place] [address] | [phone] | | HOSPITAL LABORATORY | | | [...] + + | [place] [facility] | [address] | [place] [address] | [phone] | | HOSPITAL LABORATORY | | | [...] + + | [place] [facility] | [address] | [place] [address] | [phone] | | HOSPITAL LABORATORY | | | [...] + + | [place] [facility] | [address] | [place] [address] | [phone] | | HOSPITAL LABORATORY | | | [...] + + | [place] | [address] | [place] [address] | [phone] | | HOSPITAL LABORATORY | | | [...] such as unstable angina or | [facility] | | non-Q wave myocardial infarction, cardiac troponin I levels provide | HOSPITAL | | useful prognostic information and aid in early detection of such | LABORATORY | | patients with an increased risk of . The Risk Stratification | | | cutpoint for the Troponin I method is 0.1 ng/mL. The diagnostic | | | cutoff point for the diagnosis of UT is 0.8 ng/mL for the Troponin I | | | method. | | + + + + + + + + | Performing | Address | City/State/Zipcode | Phone Number | | Organization | | | | + + + + + | [facility] | [address] | [place] [address] | [phone] | | HOSPITAL LABORATORY | | | [...] | mL/min/1.73m2 | [facility] | | | STATELESS | RATE,ESTIMATED | | HOSPITAL | | | | mL/min/1.67g7Qenp than | | LABORATORY | | | [...] 3.1 | 3.0 - 4.5 g/dL | [facility] | | | | | | [facility] [...] + + | [facility] | [address] | [place] [address] | [phone] | | HOSPITAL LABORATORY | | | [...] + + | [facility] | [address] | [place] [address] | [phone] | | HOSPITAL LABORATORY | | | [...] | | | DAILY, First dose on Bridgette 08/18/18 | | AM PDT | | | [...] | | First dose on Wed08/18/18 at 1030 | | AM PDT | [...] | | | | AC, NPO, Daytime 3721-1071 Use | | | | | | | NIGHT DOSE for doses scheduled: | | | | | | | HS, 3AM, Nighttime 4698-3222 | | | | | | | [...] PDT | | | | | ONCE, [facility] 08/16/18 at 0845, For 1 | | [...] | | | | | dose on [facility] 08/18/18 at 1100 | | AM [...] | | | | First dose on [facility] 08/18/18 at 1030 | | AM [...] | | chloride 0.9% 250 mL IVPB 500 | | 12:10 | | mL/hr | [...] | First dose on Bridgette 08/18/18 at 2100, | | PM PDT [...] | | | | | dose on [facility] 08/18/18 at 2100, | | PM [...]
--- OUTSIDE RECORDS SUMMARY | ~2019-05-03 | XMS | Encounter Summary ---
Demographics + + + | Address | [address] | | | [place] [address] | + + + | Home Phone [...] | | | | | [place] [address] | | + + + + + Care Team Providers + +------+ + | Care Charge Nurse Name | Role | Phone | [...] as of this encounter Progress Notes Interface, Radiation Protection Engineer In - 03/19/2006 1:11 AM [facility] [place] [facility] [address] [place], [place] [address] or May 16, 1999 Leland Marcum D. [address] [place] [address] RE: CARLINE MIN MR #: [id number] Dear Dr. Bright: I had the pleasure [...] has full range of motion and good cell stripper final strength. There is no laboratory data available [...] months. This case was discussed with staff torch burner, Dr. Deyvi Lainez, who also examined the patient and agrees with the above. Thank you for allowing us to participate in the care of Mrs. Min, and please call if you wish to discuss her case any further. Lastly, we would appreciate if you could forward the results of her laboratory tests to us #[phone] (fax number). Sincerely, Ameya Steen M.D. Resident, Internal Medicine Deyvi Lainez M.D. Manager Sales Training, Rheumatology [facility] / [id number] / [id number] / [id number] / [id number] signed by Interface, Radiation Protection Engineer In at 03/19/2006 1:11 AM PSTdocume nted in this encounter Plan of Treatment Not on filedocumented as of this encounter Visit Diagnoses Not on filedocumented in this encounter"
--- OUTSIDE RECORDS SUMMARY | ~2019-05-03 | XMS | Encounter Summary ---
Demographics + + + | Address | [address] | | | [place] [address] | + + + | Home Phone [...] Author + + + | Author | [facility] | + + + | Organization | [facility] | + + + | Address | Unknown | + + + | Phone | Unavailable | + + + Support + + + + + | Name | Relationship | Address | Phone | + + + + + | Scot Johnson | ECON | [address] | | | | | [place] [address] | | + + + + + Care Team Providers + +------+ + | Care Motor Builder Winder Name | Role | Phone | + [...] Clinic | | | | | | [facility], [address] | | | | | | [place], [place] | | | | | | [address] | | | | | | [phone] | | | +--------+ + + + [...] | | + +---------+ + + | [facility] DEPARTMENT OF | | | | | RADIOLOGY | | | | + +---------+ + + documented in this encounter Visit Diagnoses Not on filedocumented in this encounter"
--- OUTSIDE RECORDS SUMMARY | ~2019-05-03 | XMS | Encounter Summary ---
Demographics + + + | Address | [address] | | | [place] [address] | + + + | Home Phone [...] Author + + + | Author | [facility] | + + + | Organization | [facility] | + + + | Address | Unknown | + + + | Phone | Unavailable | + + + Support + + + + + | Name | Relationship | Address | Phone | + + + + + | Scot Johnson | ECON | [address] | | | | | [place] [address] | | + + + + + Care Team Providers + +------+ + | Care Activity Specialist Name | Role | Phone | + +------+ + | Bart Ba DO | PCP | | + +------+ + Encounter Details +--------+ + + + + | Date | Type | Department | Care Team | Description | +--------+ + + + + | 12/12/ | Telephone | Dermatology | Azucena Jacobson MD | | | 2007 | | Medical at [facility] | [address] | | | | | Floor [address] [facility] | | | | | Cyndi Mailcode: [id number] | [place] [address] | | | | | [facility] | [phone] | | | | | and Healing, | | | | | | | | | | | | Floor [place], [place] | | | | | | [address] | | | | | | [phone] | | | +--------+ + + + [...]
--- OUTSIDE RECORDS SUMMARY | ~2019-05-03 | XMS | Encounter Summary ---
Demographics + + + | Address | [address] | | | [place] [address] | + + + | Home Phone [...] | | | | | [place] [address] | | + + + + + | Robson Min | ECON | Unknown | | + + + + + | Isabella Whitehead | ECON | Unknown | | + + + + + Care Team Providers + +------+ + | Care Billing Assistant Name | Role | Phone | [...] Navdeep | | | | Pulmonology | airway | [address] | [address] | | | | | obstruction, | [address] | [place], | | | | | not | [place] | [place] [address] | | | | | elsewhere | [address] | Phone: | | | | | classified | [place] | [phone] | | | | | Procedures | [address] | Fax: | | | | | [place] OFFICE | Phone: | [phone] | | | | | OUTPATIENT | [phone] | | | | | | VISIT 25 | | | | | | | MINUTES | | | +--------+--------+ + + + + Encounter Details +--------+---------+ + + + | Date | Type | Department | Care Team | Description | +--------+---------+ + + + | 04/24/ | Office | [facility] | Navdeep Grande, | Other nonspecific | | 2015 | Visit | PULMONARY [address] | MD [address] | abnormal finding of | | | | [place], | [place] | lung field (Primary | | | | [place] [address] | [address] | Dx); COPD, mild | | | | [phone] | | ([facility]); Chronic | | | | | | bronchitis; Hypoxia, | | | | | | sleep related; Need | | | | | | for pneumococcal | | | | | | vaccination | +--------+---------+ + + + Social History [...] + + + | Blood Pressure | 142/86 | 04/24/2014 3:08 PM | | | | | PST | | + + + + + | Pulse | 81 | 04/24/2014 3:08 PM | | | | | PST | | + + + + + | Temperature | - | - | | + + + + + | Respiratory Rate | - | - | | + + + + + | Oxygen Saturation | 96% | 04/24/2014 3:08 PM | | | | | PST | | + + + + + | Inhaled Oxygen | - | - | | | Concentration | | | | + + + + + | Weight | 95.4 kg (210 lb 4.8 | 04/24/2014 3:08 PM | | | | oz) | PST | | + + + + + | Height | 167.6 cm (5' 6") | 04/24/2014 3:08 PM | | | | | PST | | + + + + + | Body Mass Index | 33.94 | 04/24/2014 3:08 PM | | | | | PST | | + + + + + documented in this encounter Patient Instructions Patient Instructions Navdeep Grande MD - 04/24/2014 3:20 PM PSTPlease increase Advair HFA to 2 puffs twice daily. COPD Flare Both emphysema and chronic bronchitis are forms of chronic obstructive pulmonary disease (C OPD). It is most often caused by many years of smoking tobacco. Many things can make your augie ng disease suddenly get worse. These causes include the common cold, pneumonia, acute bronch itis, missing doses of your regular breathing medicines, or being around smoke, dust, or oth er air pollutants. A COPD flare may last 7 to 14 days. Your doctor may prescribe medicineto relax your airwa ys and prevent wheezing. Your doctor may also prescribe antibiotics if he or she thinks you havea bacterial infection. Prednisone can helpease inflammation in a severe attack. Home care Here are things you can do at home: Drink lots of water or other fluids (at least 10 glasses a day) during an attack. This w ill loosen lung secretions and make it easier to breathe. If you have heart or kidney diseas e, check with your doctor before you drink extra amounts of fluids. Take prescribed medicine exactly at the times advised. If you have a hand-held inhaler o r aerosol breathing medicine, don't use it more than once every 4 hours, unless your doctor tells you to. If you were givenan antibiotic or prednisone, take all of the medicine even if you are feeling better after a few days. Don't smoke. Avoid being aroundthe smoke of others. If you were given an inhaler, use it exactly as directed. If you need to use it more oft en than prescribed, your condition may be getting worse. Call your doctor. Follow-up care Follow up with your health care provider.If you are 65 or older or have chronic asthma or COPD, you should get a single dose of the pneumococcal vaccine and aflu shot each year. Y ou may need a second dose of the pneumococcal vaccine if you had the first dose at a younger age. Your health care provider will let you know if you need a second dose. For all other p eople, the usual dose for the pneumococcal vaccine is 1 or 2 shots. Yourprovider can discu ss this with you. When to seek medical care Get prompt medical attention ifany of these occur: Increased wheezing or shortness of breath Need to use your inhalers more often than usual without relief Fever of 100.4F(38C) or higher, or as directed by your health care provider Coughing up lots of dark-colored or bloody sputum (mucus) Chest pain with each breath You do not start to improve within 24 hours 5007-[address] [employer] Original[address] [place] [address], [place] [address]. All righ ts reserved. This information is not intended as a substitute for professional medical care. Always follow your healthcare professional's instructions. documented in this encounter Progress Notes Navdeep Grande MD - 04/24/2014 3:11 PM PSTFormatting of this note might be different f rom the original. Pulmonary Follow Up 04/24/2014 HPI Kait Min is a 43 y.o. female patient of Bart Ba DO here today for follow u p of Gold Stage I COPD. The last pulmonary clinic visit was on 09/06/13. Since their last appointment they feel lik e their breathing issues have been stable. They have not had any acute pulmonary illnesses. The patient has not required a prednisone taper since our last clinic appointment. Likewis e Kait Min has not required antibiotics for a COPD exacerbation since our last clin ic appointment. They are currently on a daily regimen of Advair (dose unclear) once daily for their COPD. They do feel like this medication regimen is controlling their symptoms. Currently she is u sing their short acting inhaler, Ventolin, 1 times a month. Currently the patient is able to walk 1 mile at their own pace on level ground before devel oping dyspnea. They are not exercising regularly. They are not enrolled in cardiac/pulmona ry rehabilitation. They have not completed pulmonary rehabilitation in the past. The patient does cough chronically, and does not produce mucous. They have not had hemoptys is since our last appointment. She has been evaluated for nocturnal oxygen. They currently are using nocturnal oxygen. T reginaldo are currently on 1 LPM at night while sleeping. The patient states that she is now wear ing supplemental oxygen with exertion. They have not reported recent symptoms of nasal sarai estion, runny nose or post nasal drip. The patient have received this year's influenza vaccination. They are up to date with thei r Pneumovax (23 Valent). Ms. Min is smoking half a pack of cigarettes a day. Past Medical History Past Medical History Diagnosis Date Wrist pain Diabetes mellitus, type 2 ([facility]) Vitamin D deficiency Hypercholesterolemia Hypothyroidism Panic anxiety syndrome IBS (irritable bowel syndrome) Restless leg syndrome Urinary hesitancy Lumbago Nocturia Pyoderma gangreosum-LE Bipolar 1 disorder ([facility]) Hypertension Lymphedema Nausea and vomiting Reflux esophagitis GI bleeding Empyema lung ([facility]) 2005 right Knee pain CHRONIC [...] Allergen Reactions Azithromycin Lamotrigine Medications: Current outpatient prescriptions:albuterol (VENTOLIN HFA) 90 mcg/puff inhaler, Inhale 2 puf fs into the lungs every 4 hours as needed., Disp: , Rfl: ; azaTHIOprine (AZASAN) 75 MG TABS , Take 50 mg by mouth 4 times daily., Disp: , Rfl: ; iyugjeeaom-esvknno-fxegcium (BUTALBITA L COMPOUND/ASA) per tablet, One tablet by mouth every 6 hours as needed for migraine, Disp: , Rfl: dicyclomine (BENTYL) 10 mg capsule, Take 1 capsule by mouth every 6 hours as needed., Disp: 150 capsule, Rfl: 3; ergocalciferol (VITAMIN D-2) 50,000 units capsule, Take 50,000 Units by mouth Daily., Disp: , Rfl: ; fluticasone-salmeterol (ADVAIR HFA) 45-21 MCG/ACT inhaler, Inhale 2 puffs into the lungs 2 times daily., Disp: , Rfl: ; gabapentin (NEURONTIN) 600 MG tablet, Take 600 mg by mouth 3 times daily., Disp: , Rfl: HYDROcodone-acetaminophen (NORCO) 7.5-325 mg per tablet, Take 10-325 mg by mouth every 4 ho urs., Disp: , Rfl: ; insulin glargine (LANTUS) 100 units/mL injection, Inject 20 Units unde r the skin nightly., Disp: , Rfl: ; Insulin Lispro, Human, (HUMALOG KWIKPEN SC), Inject un colten the skin., Disp: , Rfl: ; levothyroxine (SYNTHROID, LEVOTHROID) 300 MCG tablet, Take 30 0 mcg by mouth Daily., Disp: , Rfl: LORazepam (ATIVAN) 0.5 mg tablet, One to two tablets by mouth at bedtime, Disp: , Rfl: ; m etFORMIN (GLUCOPHAGE) 500 mg tablet, Take two tablets by mouth every a.m. and three tablets every p.m., Disp: , Rfl: ; metoprolol tartrate (LOPRESSOR) 25 mg tablet, Take 25 mg by mout h Daily., Disp: , Rfl: ; omeprazole (PRILOSEC) 20 mg capsule, Take 1 capsule by mouth every morning (before breakfast)., Disp: 90 capsule, Rfl: 3 promethazine (PHENERGAN) 25 mg tablet, Take 25 mg by mouth 3 times daily as needed., Disp: , Rfl: ; simvastatin (ZOCOR) 20 mg tablet, Take 20 mg by mouth Daily., Disp: , Rfl: ; sucr alfate (CARAFATE) 1 g tablet, Take 1 g by mouth 4 times daily., Disp: , Rfl: ; SUMAtriptan (IMITREX) 100 mg tablet, 1/2-1 tablet by mouth daily as needed migraine, Disp: , Rfl: ; tra ZODone (DESYREL) 100 mg tablet, Take 100 mg by mouth nightly., Disp: , Rfl: venlafaxine (EFFEXOR) 75 MG tablet, Take 75 mg by mouth 2 times daily., Disp: , Rfl: ; ROBERTO APAMIL HCL PO, Take 120 mg by mouth 2 times daily., Disp: , Rfl: ; ziprasidone (GEODON) 60 MG capsule, Take 80 mg by mouth Daily., Disp: , Rfl: Immunizations: Immunization History Administered Date(s) Administered PNEUMOCOCCAL POLYSACCHARIDE 23-VALENT (PPSV23) 04/04/2009, 03/19/2013 TRIVALENT INFLUENZA, PRESERATIVE FREE (PED/ADOL/ADULT) 02/03/2012, 02/17/2013, 01/18/20 14 Review of Systems Constitutional: Denies fever, chills, [...] Denies urticaria and allergic rash. Objective BP 142/86 | Pulse 81 | Ht 1.676 m (5' 6") | Wt 95.391 kg (210 lb 4.8 oz) | BMI 33.96 kg/m2 | SpO2 96% Appearance: Alert, cooperative, no distress, appears stated [...] gallops. Extremities: Extremities normal/atraumatic. No cyanosis, clubbing. no edema. Skin: Warm and dry. Lymph nodes: No significant cervical and supraclavicular nodes. Neurologic: Gait normal. No apparent weakness. Data: Chest CT(s) from 04/24/14 and 12/14/11 and were reviewed and interpreted in clinic with the jeremiah tang. The Chest CT(s) shows stable right sided pulmonary cavitary abnormalities. The patie nt also has regions of pleural thickening on the right. Resolution of left-sided groundglas s changes is appreciated. Assessment 1. Abnormal CT scan the chest-followup CT imaging approximately 2.5 years apart shows over all stability of right-sided cavitary/pleural based abnormalities. I suspect that these are sequelae from the patient's severe empyema in the past. The previously appreciated groundg lass changes have resolved. I do not anticipate the need for followup imaging regarding these changes. 2. COPD-currently treated with samples of either Advair HFA or Advair Diskus. The patient is currently using Advair HFA but only once a day. I have advised Ms. Min regarding the appropriate use of Advair. 3. Nocturnal hypoxemia-patient wears supplemental oxygen at 1 L per minute while sleeping. She is willing to wear supplemental oxygen with exertion Plan 1. Prevnar 13 today. 2. Official interpretation of the patient's CAT scan will be communicated when available. Anticipate no further need for followup CT scans. 3. The interval between pulmonary clinic followup appointments will be lengthen to 12 imani hs. 4. Increase Advair HFA (strength unclear the patient) to 2 puffs twice daily. CC: Bart Ba documented in this encounter [...] | | | | | [place] | | | | | | [address] | | | | | | | | +--------+---------+ + + + documented as of this encounter Visit Diagnoses + + | Diagnosis | + + | Other nonspecific abnormal finding of lung field - Primary | + + | COPD, mild (HCC) Chronic airway obstruction, not elsewhere classified | + + | Chronic bronchitis Unspecified chronic bronchitis | + + | Hypoxia, sleep related Idiopathic sleep related nonobstructive alveolar | | hypoventilation | + + | Need for pneumococcal vaccination Need for prophylactic vaccination against | | streptococcus pneumoniae (pneumococcus) | + + documented in this encounter
--- OUTSIDE RECORDS SUMMARY | ~2019-05-03 | XMS | Encounter Summary ---
Demographics + + + | Address | [address] | | | [place] [address] | + + + | Home Phone [...] | | | | | [place] [address] | | + + + + + | Robson Min | ECON | Unknown | | + + + + + | Isabella Whitehead | ECON | Unknown | | + + + + + Care Team Providers + +------+ + | Care Laboratory Equipment Cleaner Name | Role | Phone | [...] RN | Alveolar | | | | [place], | | hypoventilation; | | | | [place] [address] | | Hypoxemia | | | | [phone] | | | +--------+ + + + [...] [place] | | | | | | [address] | | | | | | | | +--------+---------+ + + + | 07/26/ | Office | Pulmonology | Navdeep Grande, | | | 2019 | Visit | | MD Cely GORE | | | | | | [place] | | | | | | [address] | | | | | | | [...]
--- OUTSIDE RECORDS SUMMARY | ~2019-05-03 | XMS | Encounter Summary ---
Demographics + + + | Address | [address] | | | [place] [address] | + + + | Home Phone | | + + + | Preferred Language | Unknown | + + + | Marital Status | Single | + + + | Taoism Affiliation | CHR | + + + [...] | | | | | [place] [address] | | + + + + + Care Team Providers + +------+ + | Care Director Of Group Counseling Program Name | Role | Phone | + +------+ + PCP | Unavailable | + +------+ + Encounter Details +--------+ + + + + | Date | Type | Department | Care Team | Description | +--------+ + + + + | 10/31/ | Respiratory | | Other, Faculty | | | 2006 | Therapy | | [phone] | | +--------+ + + + + [...] | | | | | Y | ENTERPRISE MANAGER | | | | + + [...] [facility] | [address] | [place], [place] | | | DIAGNOSTICS - | [place] | [address] | | | PULMONARY FUNCTION | | | | + + + + + documented in this encounter Visit Diagnoses Not on filedocumented in this encounter"
--- OUTSIDE RECORDS SUMMARY | ~2019-05-03 | XMS | Encounter Summary ---
Demographics + + + | Address | [address] | | | [place] [address] | + + + | Home Phone | | + + + | Preferred Language | Unknown | + + + | Marital Status | Single | + + + | Jewish Affiliation | Unknown | + + + | Race | Unknown | + + + | Ethnic Group | Unknown | + + + Author + + + | Author | [facility] | | | and [place] | + + + | Organization | [facility] | | [...] | | | | | [place] [address] | | + + + + + | Robson Min | ECON | Unknown | | + + + + + | Isabella Whitehead | ECON | Unknown | | + + + + + Care Team Providers + +------+ + | Care Audit Director Name | Role | Phone | [...] (Primary Dx) | | | | [place] [address] | | | | | | [phone] | | | +--------+ + + + [...] [place] | | | | | | [address] | | | | | | | | +--------+---------+ + + + | 07/26/ | Office | Pulmonology | Navdeep Grande, | | | 2019 | Visit | | MD [address] | | | | | | [place] | | | | | | [address] | | | | | | | [...]
--- OUTSIDE RECORDS SUMMARY | ~2019-05-03 | XMS | Encounter Summary ---
Demographics + + + | Address | [address] | | | [place] [address] | + + + | Home Phone [...] | | | | | [place] [address] | | + + + + + | Robson Min | ECON | Unknown | | + + + + + | Isabella Whitehead | ECON | Unknown | | + + + + + Care Team Providers + +------+ + | Care Spanish Literature Professor Name | Role | Phone | [...] + + | 11/03/ | Office | [facility] | Neno Walker | Nocturnal oxygen | | 2019 | Visit | SLEEP DISORDER [address] | MD Srinivas [address] | desaturation | | | | [address] | [address] | (Primary Dx); | | | | [place] [address] | [place] [address] | Chronic obstructive | | | | [phone] | [phone] | pulmonary disease, | | | | [...] breaths does not meet criteria for an criminalist technician ea or hypopnea. Sleep Architecture: Lights out [...] obstructive apneas, 0 mixed apneas, 0 central criminalist technician eas, 3 hypopneas, and 18 Respiratory Effort [...] resolved. Test performed: 09/22/2018 Electronically signed by: Navedep Grande MD 09/22/2018 14:54 [facility] BP 120/80 | Pulse 86 | [...] [place] | | | | | | [address] | | | | | | | | +--------+---------+ + + + | 07/26/ | Office | Pulmonology | Navdeep Grande, | | | 2019 | Visit | | MD Cely GORE | | | | | | [place] | | | | | | [address] | | | | | | | [...]
--- OUTSIDE RECORDS SUMMARY | ~2019-05-03 | XMS | Encounter Summary ---
Demographics + + + | Address | [address] | | | [place] [address] | + + + | Home Phone [...] | | | | | [place] [address] | | + + + + + Care Team Providers + +------+ + | Care Lighting Specialist Name | Role | Phone | [...] Clinic | | | | | | [facility], | | | | | | [place] [address] | | | | | | [phone] | | | +--------+ + + + [...] | + + + + + | [facility] | [address] | [place] [address] | | | LABORATORY | | | | + + + + + documented in this encounter Visit Diagnoses Not on filedocumented in this encounter"
--- OUTSIDE RECORDS SUMMARY | ~2019-05-03 | XMS | Encounter Summary ---
Demographics + + + | Address | [address] | | | [place] [address] | + + + | Home Phone [...] + + + | Author | [facility] | | | and [place] | + + + | Organization | [facility] | | | [...] | | | | | [place] [address] | | + + + + + | Robson Escobar | ECON | Unknown | | + + + + + | Isabella Whitehead | ECON | Unknown | | + + + + + Care Team Providers + +------+ + | Care Rice Milling Supervisor Name | Role | Phone | + +------+ + | Bart Ba DO | PCP | | + +------+ + Encounter Details +--------+ + + + + | Date | Type | Department | Care Team | Description | +--------+ + + + + | 03/21/ | Hospital [facility] | Luis [place], | NSTEMI (non-ST | | 2013 - | Encounter | [facility] | MD [address] | elevated myocardial | | | | CARE FLOOR [address] | [place] [address] | infarction) ([facility]); | | 03/24/ | | [address] | [phone] | Current smoker; RA | | 2012 | | [place], [place] | | (rheumatoid | | | | [address] | | arthritis) ([facility]); | | | | [phone] | | ARF (acute renal | | | | | | failure) ([facility]); | | | | | | Bacterial pneumonia, | | | | | | unspecified; COPD | | | | | | exacerbation ([facility]); | | | | | [...] mellitus) | | | | | | ([facility]); Tobacco | | | | [...] Date of Service: 03/24/13 105 Status: Signed Sueding And Buffing Machine Operator: Arcadio Cobian MD (Physician) [facility] Service: Hospitalist Physician Discharge Summary Pt: Carline Escobar AGE/SEX: 42 y.o. female ROOM: [id number] PCP: BART BA : 1970 Admit date: [...] and had elevated Trop[ with possible NSTE NJ and possible underlying PNA Bacterial pneumonia, unspecified [...] patch PRN . Will need Repeat CT [address] in 2 to 3 months RA [...] Take 1 tablet by mouth daily. Nebulizer (emergency medical service coordinator) Dispense and provide instruction as needed. CONTINUE taking these medications azaTHIOprine 50 MG tablet Commonly known as: IMURAN BUTALBITAL COMPOUND/ASA 50-325-40 MG per tablet Generic drug: xtqjaknrpa-bgqpcmy-ngnekfpu gabapentin 600 MG tablet Commonly known as: [...] are the prescriptions that you need to product picker. You may get these medications from any pharmacy. aspirin 81 MG EC tablet fluticasone-salmeterol 250-50 MCG/DOSE ipratropium-albuterol 0.5-2.5 mg/3mL levofloxacin 500 MG tablet Nebulizer (emergency medical service coordinator) Activity: activity as tolerated Diet: regular diet [...] | 0 | 10/08/19 | | | frbiyyjenz-togeqlk-l | every 6 hours as | | [...] 03/24/131552 Date of Service: 03/24/131552 Status: Signed Sueding And Buffing Machine Operator: Bernardo Avery RN (Registered Nurse) Discharge instructions reviewed with pt and family. IV removed, cannula intact. No complain s, concerns or questions at this time. Discharged to home/self care per private vehicle. BERNARDO AVERY RN Ayanna Rodríguez MSW - 03/24/2013 3:05 PM PST Case Management by EMA Fishman at 03/24/13 2393 Author: EMA Fishman Service: (none) Author Type: Clinical Psychologist Private Practice Filed: 03/24/13 4834 Date of Service: 03/24/13 055 Status: Signed Sueding And Buffing Machine Operator: EMA Fishman (Clinical Psychologist Private Practice) 03/22/13 1100 Discharge Planning Evaluation Living Arrangements [...] this time. Community resources utilized / needed: [employer] for home 02 Assistance in transportation: family [...] Date of Service: 03/24/13 1436 Status: Signed Sueding And Buffing Machine Operator: Crystal Dunaway RRT (Registered Respiratory Therapist) [facility] Department of Respiratory Prison Oxygen Evaluation (Evaluation is valid for 48 [...] 03/24/13848 Date of Service: 03/24/13846 Status: Signed Sueding And Buffing Machine Operator: Vinny Strickland MD (Physician) Nuc images reviewed, they are normal. I think small troponin elevation was not due to an NJ, but to hypoxia from respiratory issu es. [...] 03/23/131907 Date of Service: 03/23/131852 Status: Signed Sueding And Buffing Machine Operator: Pedro Hester MD (Physician) PCP : BART [...] charting completed later after rounds. Dictation software, roomlinx, used which may contain error for similar [...] Service: Hospitalist Author Type: Physician Filed: 03/23/13 1155 Date of Service: 03/23/13 1146 Status: Signed Sueding And Buffing Machine Operator: Arcadio Cobian MD (Physician) [facility] Service: Hospitalist Progress Note Pt: Carline Escobar AGE/SEX: 42 y.o. female ROOM: [address] [place] [address] : 1970 PCP: BART BA ADMIT DATE: 03/21/2013 TODAY'S DATE: 03/23/2013 Hospital Day/Hospital Course: LOS: 2 days 42 YO F with PMHof HTN, DM2, RA came with SOB and and had elevated Trop[ with possible NSTE NJ and possible underlying PNA SUBJECTIVE: Patient seen [...] and had elevated Trop[ with possible NSTE NJ and possible underlying PNA NSTEMI (non-ST elevated myocardial infarction): Though Trop is slightly elevated but Doubt she had real NJ? I DW Dr. Strickland and will do [...] Date of Service: 03/23/13 0849 Status: Signed Sueding And Buffing Machine Operator: Vinny Strickland MD (Physician) No complaints. Mildly [...] Date of Service: 03/22/13 1306 Status: Signed Sueding And Buffing Machine Operator: Arcadio Cobian MD (Physician) [facility] Service: Hospitalist Progress Note Pt: Carline Escobar AGE/SEX: 42 y.o. female ROOM: 4447/4447-1 : 1970 PCP: BART AB ADMIT DATE: 03/21/2013 TODAY'S DATE: 03/22/2013 Hospital Day/Hospital Course: LOS: 1 day 42 YO F with PMHof HTN, DM2, RA came with SOB and and had elevated Trop[ with possible NSTE NJ and possible underlying PNA SUBJECTIVE: Patient seen [...] and had elevated Trop[ with possible NSTE NJ and possible underlying PNA NSTEMI (non-ST elevated [...] Oxana Gamino RD Service: (none) Author Type: Interior Design Assistant Filed: 03/22/13 1037 Date of Service: 03/22/13 1025 Status: Signed Sueding And Buffing Machine Operator: Oxana Gamino RD (Interior Design Assistant) Elevated blood sugars, was 307 this am. [...] remain elevated. Oxana Gamino RD, CDE, Inpatient Interior Design Assistant 03/22/2013 10:37 AM onversion Transaction , Provider Unknown - 03/21/2013 11:16 PM PST Progress Notes by Loni Hameed RPH at 03/21/132315 Author: Loni Hameed RPH Service: (none) Author Type: Pharmacist Filed: 03/21/132315 Date of Service: 03/21/132315 Status: Signed Sueding And Buffing Machine Operator: Loni Hameed RPH (Pharmacist) Clinical Pharmacy Note: [...] | Jimob Samayoa MD | | | 2019 | Visit | | [address] | | | | | | [place] | | | | | | [phone] | | | | | | | | +--------+---------+ + + + | 07/26/ | Office | Pulmonology | Navdeep Grande, | | | 2020 | Visit | | [address] | | | | | | [place] | | | | | | [address] | | | | | | | [...] | + + + | CARLINE ESCOBAR [place] MYOCARDIAL PERFUSION SPECT - STRESS AND REST [...] Conversion - 12/09/2018 8:13 PM PDT CARLINE ESCOBARMN MYOCARDIAL PERFUSION | | SPECT - STRESS [...] | | | | | INDICATIONS ACUTE NJ PNEUMONIA, COPD CONCLUSIONS | | | 1. [...] | posterior mitral valve leaflet. Tricuspid Valve: Dnow-my-osszdwwm | | | tricuspid regurgitation present. Tricuspid [...] 72.21 ml D-E Excursion: 1.51 cm E-F Martin: | | | 0.07 m/s EPSS: 0.73 [...] TV A Manjeet: 0.73 m/s TV Dec Martin: | | | 6.25 m/s2 TV Dec Time: 121.02 ms TV E Manjeet: 0.75 m/s TV E/A | | | Ratio: 1.03 Behavioral Therapist: ERASMO Authenticated by: Vinny | | | Marco A NEFF Report Date/Time: 03-22-2013 12:44:09 | | + + + + + | Procedure Note | + + | Jose Hanks Conversion - 12/09/2018 8:13 PM PDT Patient Name: Anupam ESCOBAR of | | : 1970 Performing Physician: Vinny Strickland, | | INDICATIONS A | | CUTE [place] PNEUMONIA, COPD CONCLUSIONS 1. Good pump, moderate [...] posterior mitral valve leaflet.Tricuspid Valve: | | Zehz-lw-hvmgurwg tricuspid regurgitation present.Tricuspid Valve: There is moderate [...] Major: 4.31 cmRVIDd: 3.51 cmLAAs A2C: 17.11 hv0YNCWH A-L | | A2C: 55.22 mlLALs A2C: 4.50 cmAo Diam: 3.51 cmAV Cusp: 2.42 cmLA Diam: 4.02 | | cmLA/Ao: 1.14%FS: 33.70 %EDV(Teich): 115.90 mlEF(Teich): 62.30 %ESV(Teich): | | 43.69 mlIVSd: 0.89 cmIVSs: 1.28 cmLVIDd: 4.95 cmLVIDs: 3.28 cmLVPWd: 0.89 | | cmLVPWs: 1.50 cmSV(Teich): 72.21 mlD-E Excursion: 1.51 cmE-F Martin: 0.07 | | m/sEPSS: 0.73 cmIVC diameter: 2.47 cmIVC collapse: 1.11 cmIVC % collapse: 52.36 | | %HR: 78.78 BPMAV maxP.53 mmHgAV meanP.92 mmHgAV Vmax: 1.46 m/Viri Vmean: | | 1.06 m/Viri VTI: 33.32 cmAVA Vmax: 3.14 cm2AVA (VTI): 2.80 tb3QZYV Dopp: 3.45 | | l/yeis7FKGE Dopp: 7.15 l/minHR: 76.55 BPMLVOT maxP.44 mmHgLVOT [...] 3.55 m/sTV A Manjeet: 0.73 m/sTV Dec Martin: 6.25 m/s2TV Dec Time: 121.02 msTV E Manjeet: | | 0.75 m/sTV E/A Ratio: 1.03 Behavioral Therapist: KIMuthenticated by: Vinny Strickland | | MDReport [...] | |D-E Excursion: 1.51 cm | |E-F Martin: 0.07 m/s | |EPSS: 0.73 cm | [...] A Manjeet: 0.73 m/s | |TV Dec Martin: 6.25 m/s2 | |TV Dec Time: 121.02 ms | |TV E Manjeet: 0.75 m/s | |TV E/A Ratio: 1.03 | | | |Behavioral Therapist: KVW | |Authenticated by: Vinny Strickland MD [...] 42 years FemaleCT | | CHEST WO WFLZVHJZ89/4/2013 7:10 AM HISTORY: Shortness of breath, hypoxia [...] + + | Historically converted procedure from [facility] environment | EXTERNAL LAB | + [...] (500), | | | | | | news video editor NICK GOMEZ (2) | | | | | | on 03/22/2013 5:26:12 AM | | | | | | | | | | + + + + + + + + | Specimen | + + | | + + + + + | Narrative | Performed At | + + + | Historically converted procedure from [facility] environment | EXTERNAL LAB | + [...]
--- OUTSIDE RECORDS SUMMARY | ~2019-05-03 | XMS | Encounter Summary ---
Demographics + + + | Address | [address] | | | [place] [address] | + + + | Home Phone [...] | | | | | [place] [address] | | + + + + + | Robson Min | ECON | Unknown | | + + + + + | Isabella Whitehead | ECON | Unknown | | + + + + + Care Team Providers + +------+ + | Care Attending Psychiatrist Name | Role | Phone | + [...] [address] | | | | | [place] [address] | | | | | | [phone] | | | +--------+ + + + [...] [place] | | | | | | [address] | | | | | | | | +--------+---------+ + + + | 07/26/ | Office | Pulmonology | Navdeep Grande, | | | 2019 | Visit | | MD Cely GORE | | | | | | [place] | | | | | | [address] | | | | | | | | +--------+---------+ + + + documented as of this encounter Visit Diagnoses Not on filedocumented in this encounter"
--- OUTSIDE RECORDS SUMMARY | ~2019-05-03 | XMS | Encounter Summary ---
Demographics + + + | Address | [address] | | | [place] [address] | + + + | Home Phone [...] | | | | | [place] [address] | | + + + + + | Robson Min | ECON | Unknown | | + + + + + | Isabella Whitehead | ECON | Unknown | | + + + + + Care Team Providers + +------+ + | Care Lobsterman Name | Role | Phone | + [...] | | | Pulmonology | (chronic | [address] | [address] | | | | | obstructive | [address] | [place] | | | | | pulmonary | [place] | [place] [address] | | | | | disease) | [address] | Phone: | | | | | ([facility]) | [place] | [phone] | | | | | Procedures | [address] | Fax: | | | | | F/[address] | Phone: | [phone] | | | | | [place]ANDE | [phone] | | | | | | 11/19/17 | | | +--------+--------+ + + + + Encounter Details +--------+---------+ + + + | Date | Type | Department | Care Team | Description | +--------+---------+ + + + | 12/10/ | Office | [facility] | Navdeep Grande, | Alveolar | | 2018 | Visit | PULMONARY [address] | MD [address] | hypoventilation | | | | [place], | [place] | (Primary Dx); COPD, | | | | [place] [address] | [address] | mild (HCC); | | | | [phone] | | Hypoxemia; JESUSITA and | | [...] irritation from your mask Date Last Reviewed: 05/20/201619996547-8944 [employer]. [address] [place] [address], [place] [address]. All righ ts reserved. This information is [...] Diabetes mellitus, type 2 (HCC) Empyema lung ([facility]) 2005 right GI bleeding Hypercholesterolemia Hypertension [...] 50,000 Units by mouth Once a w [place]., Disp: , Rfl: fluticasone-salmeterol (ADVAIR DISKUS) 250-50 [...] [place] | | | | | | [address] | | | | | | | | +--------+---------+ + + + | 07/26/ | Office | Pulmonology | Navdeep Grande, | | | 2019 | Visit | | MD [address] | | | | | | [place] | | | | | | [address] | | | | | | | [...]
--- OUTSIDE RECORDS SUMMARY | ~2019-05-03 | XMS | Encounter Summary ---
Demographics + + + | Address | [address] | | | [place] [address] | + + + | Home Phone [...] | | | | | [place] [address] | | + + + + + | Robson Min | ECON | Unknown | | + + + + + | Isabella Whitehead | ECON | Unknown | | + + + + + Care Team Providers + +------+ + | Care Hull Molder Name | Role | Phone | + [...] | | | Pulmonology | respiratory | [address] | [address] | | | | | failure, | [address] | [place], | | | | | unspecified | [place] | [place] [address] | | | | | whether with | [address] | Phone: | | | | | hypoxia or | [place], [place] | [phone] | | | | | hypercapnia | [address] | Fax: | | | | | ([facility]) | Phone: | [phone] | | | | | Procedures | [phone] | | | | | | F/U LAST | | | | | | | SEEN | | | | | | | 05/26/16 | | | +--------+--------+ + + + + Encounter Details +--------+---------+ + + + | Date | Type | Department | Care Team | Description | +--------+---------+ + + + | 10/18/ | Office | [facility] | Navdeep Grande, | COPD, mild (HCC) | | 2018 | Visit | PULMONARY [address] | MD [address] | (Primary Dx); | | | | [place], | [place], [place] | Alveolar | | | | [place] [address] | [phone] | hypoventilation | | | | [phone] | | | +--------+---------+ + + + [...] in this encounter Patient Instructions Patient Instructions Navdepe Grande MD - 10/18/2017 11:30 AM PDT [...] information carefully each time. Talk to your low altitude air defense officer regarding the use of this medicine in children. Special care may be needed. What side effects may I notice from receiving this medicine? Side effects that you should report to your doctor or health career specialist as soon as p ossible: allergic reactions like skin rash or hives, swelling of the face, lips, or tongue chest pain dizziness or lightheaded fever or chills irregular heartbeat vision problems Side effects that usually do not require medical attention (report to your doctor or health career specialist if they continue or are bothersome): coughing, [...] check ups. Tell your doctor or health career specialist if yo ur symptoms do not get [...] have surgery tell your doctor or health career specialist that you are using this medicine. Try not to come in contact with people with the chicken pox or measles. If you do, call your doctor. NOTE:This sheet is a summary. It may not cover all possible information. If you have questi ons about this medicine, talk to your doctor, pharmacist, or health care provider. Copyright 2017 Else[employer] documented in this encounter Progress Notes [...] and was hospitalized for 4 days at [facility] with respiratory failure/COPD exacerbation. She was [...] Diabetes mellitus, type 2 (HCC) Empyema lung ([facility]) 2006 right GI bleeding Hypercholesterolemia Hypertension [...] 50,000 Units by mouth Once a w [place]., Disp: , Rfl: HYDROcodone-acetaminophen (NORCO) 7.5-325 mg [...] supplemental oxygen 1 L per min at [facility] while sleeping. Total duration of [...] studies in 4 weeks' ti me. CC: Bart Ba, documented in this encounter Plan of Treatment [...] [place] | | | | | | [address] | | | | | | | | +--------+---------+ + + + | 07/26/ | Office | Pulmonology | Navdeep Grande, | | | 2019 | Visit | | MD Cely GORE | | | | | | [place] | | | | | | [phone] | | | | | | | [...] performed: 11/20/15Electronically | | | signed by: Navedep Grande MD 11/19/2017 12:24[facility] | | |physiology. Lung volume testing [...] Navdeep Grande MD 11/19/2017 12:24 | | |[facility] | | + + + documented in this encounter Visit Diagnoses + + | Diagnosis | + + | COPD, mild (HCC) - Primary Chronic airway obstruction, not elsewhere classified | + + | Alveolar hypoventilation Other dyspnea and respiratory abnormality | + + documented in this encounter
--- OUTSIDE RECORDS SUMMARY | ~2019-05-03 | XMS | Encounter Summary ---
Demographics + + + | Address | [address] | | | [place] [address] | + + + | Home Phone [...] | | | | | [place] [address] | | + + + + + Care Team Providers + +------+ + | Care Starcher And Tenter Range Feeder Name | Role | Phone | + +------+ + PCP | Unavailable | + +------+ + Encounter Details +--------+ + + + + | Date | Type | Department | Care Team | Description | +--------+ + + + + | 10/31/ | Respiratory | | Other, Faculty | | | 2006 | Therapy | | [phone] | | +--------+ + + + + [...] Cabrera, | | | | | | FRUIT PACKER | | | | + + + [...] [facility] | [address] | [place] | | | DIAGNOSTICS - | [address] | [address] | | | PULMONARY FUNCTION | | | | + + + + + documented in this encounter Visit Diagnoses Not on filedocumented in this encounter"
--- OUTSIDE RECORDS SUMMARY | ~2019-05-03 | XMS | Encounter Summary ---
Demographics + + + | Address | [address] | | | [place] [address] | + + + | Home Phone [...] Author + + + | Author | [facility] | + + + | Organization | [facility] | + + + | Address | Unknown | + + + | Phone | Unavailable | + + + Support + + + + + | Name | Relationship | Address | Phone | + + + + + | Scot Johnson | ECON | [address] | | | | | [place] [address] | | + + + + + Care Team Providers + +------+ + | Care Welding Machine Operator Plasma Arc Name | Role | Phone | + [...] W | | | | ON | [facility] 4th Floor [address] | [address] | | | | | [address] [facility] | Road [place], [place] | | | | | Mailcode: CH4S | [address] | | | | | [facility] | | | | | | and Healing, | | | | | | Building 1,4th Floor | | | | | | [place], [place] | | | | | | [address] | | | | | | [phone] | | | +--------+ + + + [...]
--- OUTSIDE RECORDS SUMMARY | ~2019-05-03 | XMS | Encounter Summary ---
Demographics + + + | Address | [address] | | | [place] [address] | + + + | Home Phone | | + + + | Preferred Language | Unknown | + + + | Marital Status | Single | + + + | Holiness Affiliation | Unknown | + + + | Race | Unknown | + + + | Ethnic Group | Unknown | + + + Author + + + | Author | [facility] | | | and [place] | + + + | Organization | [facility] | [...] | | | | | [place] [address] | | + + + + + | Robson Min | ECON | Unknown | | + + + + + | Isabella Whitehead | ECON | Unknown | | + + + + + Care Team Providers + +------+ + | Care Oil Pit Attendant Name | Role | Phone | + +------+ + | Ora Slater | PCP | | + +------+ + Encounter Details +--------+ + + + + | Date | Type | Department | Care Team | Description | +--------+ + + + + | 09/22/ | Hospital | [facility] | Neno Walker | Hypoventilation | | 2019 | Encounter | MED CTR PULMONARY | MD Srinivas [address] | | | | | FUNCTION [address] [place] | | | | | [place], | [place] [address] | | | | | [place] [address] | [phone] | | | | | [phone] | | | +--------+ + + + [...] [place] | | | | | | [address] | | | | | | | | +--------+---------+ + + + | 07/26/ | Office | Pulmonology | Navdeep Grande, | | | 2019 | Visit | | MD Cely GORE | | | | | | [place] | | | | | | [address] | | | | | | | [...] | | in, | | | [facility] | | | Arterial | | | [...] [address] | [place] | [phone] | | [facility] | | [address] | | | - LABORATORY | | | | + + + + + documented in this encounter Visit Diagnoses + + | Diagnosis | + + | Hypoventilation Other dyspnea and respiratory abnormality | + + documented in this encounter"
--- OUTSIDE RECORDS SUMMARY | ~2019-05-03 | XMS | Encounter Summary ---
Demographics + + + | Address | [address] | | | [place] [address] | + + + | Home Phone [...] + + + | Author | [facility] | | | and [place] | + + + | Organization | [facility] | | | [...] | | | | | [place] [address] | | + + + + + | Robson Min | ECON | Unknown | | + + + + + | Isabella Whitehead | ECON | Unknown | | + + + + + Care Team Providers + +------+ + | Care Flight Engineer Manager Name | Role | Phone | [...] + + | 09/21/ | Telephone | [facility] | Cecilio Amato MD | Other | | 2013 | | GASTROENTEROLOGY | [address] | (gastroparesis) | | | | [address] [facility] | [place], [place] | | | | | [address] [place], [place] | [address] | | | | | [address] | [phone] | | | | | [phone] | | | +--------+ + + + [...] [place]HEL[place] | | | | | | [id number] | | | | | | | | +--------+---------+ + + + | 07/26/ | Office | Pulmonology | Navdeep Grande, | | | 2019 | Visit | | MD Cely GORE | | | | | | [place] | | | | | | [address] | | | | | | | | +--------+---------+ + + + documented as of this encounter Visit Diagnoses Not on filedocumented in this encounter"
--- OUTSIDE RECORDS SUMMARY | ~2019-05-03 | XMS | Encounter Summary ---
Demographics + + + | Address | [address] | | | [place] [address] | + + + | Home Phone [...] | | | | | [place] [address] | | + + + + + | Robson Escobar | ECON | Unknown | | + + + + + | Isabella Whitehead | ECON | Unknown | | + + + + + Care Team Providers + +------+ + | Care Hebrew Professor Name | Role | Phone | [...] + + | 04/04/ | Office | [facility] | Navdeep Grande, | Abnormal chest CT | | 2011 | Visit | PULMONARY [address] | MD [address] | (Primary Dx) | | | | [place], | [place] | | | | | [place] [address] | [address] | | | | | [phone] | | | +--------+---------+ + + + [...] FLEXPEN SC), SOLN, Disp: , Rfl: ; cpzlduaevs-xkfrvmr-dbxvdkyo (BUTALBITAL COMPOUND/ A) per tablet, One tablet [...] [place] | | | | | | [address] | | | | | | | | +--------+---------+ + + + | 07/26/ | Office | Pulmonology | Navdeep Grande, | | | 2019 | Visit | | MD [address] | | | | | | [place] | | | | | | [address] | | | | | | | | +--------+---------+ + + + documented as of this encounter Results XR Chest PA and Lateral (10/18/2012 11:44 AM PDT) + + | Specimen | + + | | + + + + + | Narrative | Performed At | + + + | [facility] | [place] | | Department [address] [place] [address] | [place] | | [ rep [address]] [ rep [facility] | | st zip] Signed | - IMAGING | | | | | Patient Name: CARLINE ESCOBAR Physician: | | | : 1970 Age: 42 Sex: F Unit #: [id number] | | | Exam Date: 10/18/12 Location: [facility] | | | Report #: [id number] Page: | | | %(RAD)RES..mtdd.print.filter("pg") of %(RAD) | | | RES..mtdd.print.filter("tpg") | | | | | | Accession Number: [id number] | | | [facility] [...] Transcribed Date/Time: 10/18/2012 12:20 | | | Tearer: <<Signature on | | | File>> | | | Ace Avery MD10/18/12 1439 <Electronically signed by | | | Ace Avery MD> Ace Avery MD 10/18/12 | | | 1144 Tearer: [employer] Gmynujmntbhjb04/02/13 1220 | | | Navdeep Grande MD | | + + + + + + + + | Performing | Address | City/State/Zipcode | Phone Number | | Organization | | | | + + + + + | [facility] | [address] | [place], [place] | [phone] | | [facility] | | [address] | | | - IMAGING | | | | + + + + + documented in this encounter Visit Diagnoses + + | Diagnosis | + + | Abnormal chest CT - Primary Nonspecific (abnormal) findings on radiological and other | | examination of other intrathoracic organs | + + documented in this encounter
--- OUTSIDE RECORDS SUMMARY | ~2019-05-03 | XMS | Encounter Summary ---
Demographics + + + | Address | [address] | | | [place] [address] | + + + | Home Phone [...] | | | | | [place] [address] | | + + + + + | Robson Min | ECON | Unknown | | + + + + + | Isabella Whitehead | ECON | Unknown | | + + + + + Care Team Providers + +------+ + | Care [employer]icer Name | Role | Phone | + +------+ + | Adele Avery | DOMONIQUE | | + +------+ + Reason for Visit + + + | Reason | Comments | + + + | Chest Pain | | + + + Auth/Cert +--------+--------+ + + + + | Status | Reason | Specialty | Diagnoses / | Referred By | Referred To | | | | | Procedures | Contact | Contact | +--------+--------+ + + + + | | | | | | | +--------+--------+ + + + + Encounter Details +--------+ + + + + | Date | Type | Department | Care Team | Description | +--------+ + + + + | 04/18/ | Hospital | [facility] | Loi De Jesus Patel, | NSTEMI (non-ST | | 2019 - | Encounter | [facility] | [address] | elevated myocardial | | | | CARE [address]LO[address] | [place] [address] | infarction) (HCC) | | 04/20/ | | [address] | [phone] | (Primary Dx); Chest | | 2019 | | [place], [place] | Stevo Hitchcock MD | pain, unspecified | | | | [phone] | [address] | type; COPD, frequent | | | | [phone] | [place] [address] | exacerbations (HCC) | | | | | [phone] | | | | | | | | | | | | Iva Buck DO | | | | | | [address] | | | | | | [place] [address] | | | | | | [phone] | | | | | | | [...] documented as of this encounter Discharge Summaries Iva Buck DO - 04/20/2019 7:01 AM PSTFormatting of this note might be different fr om the original. ADULT HOSPITALIST DISCHARGE SUMMARY Patient: Carline Min : 1970 Date of Admission: 04/18/2019 Date of Discharge: 04/20/2019 Discharging Provider: Iva Buck DO Discharge Diagnoses: Principal Problem: Chest pain Active Problems: Hypertension COPD, moderate Type II diabetes mellitus Rheumatoid arthritis Hypothyroidism Tobacco use disorder Bipolar II disorder JESUSITA and COPD overlap syndrome Diabetic polyneuropathy associated with type 2 diabetes mellitus COPD, frequent exacerbations Procedures Performed: * No surgery found * Chief Complaint: Chief Complaint Patient presents with Chest Pain Hospital Course: Carline Min is a 48 y.o. female who was admitted on 04/18/2019 with shortness of breath and chest pain. Ms. Min is a 48-year-old female with PMHx of COPD, Severe RA, hx of pyoderma gangrenosum, DM Type 2, Tobacco use (Current), HTN, and previous meth use. She presented with shortness of breath that was associated with substernal chest pain which was somewhat atypical in natu re. The patient is a poor historian. As an outpatient, she has had a recent normal echocar diogram aside from mild LVH. She reportedly had a mildly elevated troponin in [place], t roponins at [facility] were undetectable. EKG was negative for acute ST-T wave changes. She und erwent a Lexiscan Cardiolite stress test on 04/19/2019 which was negative for any evidence o f infarct or ischemia on perfusion imaging. The test was technically difficult, she was not ed to have a mildly depressed ejection fraction on that study. Patient had recent normal ech ocardiogram, cardiology recommended discharge and follow up in one month in Clinic with Dr. Batista. -Continue aspirin 81 mg by mouth daily -Continue atorvastatin 20 mg by mouth daily -Continue metoprolol succinate 50 mg by mouth daily -Continue torsemide 20 mg by mouth daily Follow up with Dr. Batista in the cardiology office 4 weeks post discharge. Discharge Exam and Data: Vital Signs: BP 106/57 | Pulse 65 | Temp 36.8 C (98.2 F) (Axillary) | Resp 18 | Wt 98.8 kg (217 lb 13 oz) | SpO2 94% | No | BMI 36.25 kg/m General: Sleepy in AM, no distress, lying in bed Eyes:PERRL, no scleral icterus, no dischage ENT:External ears normal, Nose normal, oropharynx moist no exudates Neck:Supple, no thyromegaly Cardiovascular:Regular rate and rhythm, no murmurs, no rub Respiratory: No respiratory distress, clear bilaterally, no wheezing Abdomen: Soft, non-tender, non-distended, active bowel sounds Back: No tenderness or deformity Skin:Warm and dry, no rashes Extremities:No edema. Rheumatoid deformity of hands and feet Neuro: No gross motor/sensory deficit. CN grossly intact. Alert and oriented to person, p lace, time. Recent Labs Recent Labs Lab 04/20/19 0616 WBC 5.63 HGB 11.3 HCT 33.3* PLT 254 Recent Labs Lab 04/20/19 0616 NA 136 K 4.4 CL 103 CO2 28 BUN 20 CALCIUM 9.5 Recent Labs Lab 04/18/19 1154 INR 1.0 Recent Radiology Results NM Stress test 04/19/2019 1. Abnormal pharmacological nuclear stress test. Intermediate risk. 2. Technically difficult study. 3. No evidence of perfusion defects as shown on the prone images. 4. Mild systolic dysfunction with EF 41%. No discharge procedures on file. Outstanding Issues: None Discharge Information: Follow up: No follow-up provider specified. Discharge Medications New Medications Details metoprolol succinate 50 mg 24 hr tablet Take 1 tablet by mouth Daily. aka: TOPROL-XL Changed Medications Details ziprasidone 60 MG capsule Take 60 mg by mouth nightly. What changed: Another medication with the same name was removed. Continue taking this medi cation, and follow the directions you see here. aka: TESSIE Unchanged Medications Details albuterol 90 mcg/puff inhaler Inhale 2 puffs into the lungs every 4 hours as needed for Wheezing or Shortness of Breath. aka: PROAIR HFA AMITIZA 24 mcg capsule Generic drug: lubiprostone Take 24 mcg by mouth Daily. aspirin 81 mg EC tablet Take 81 mg by mouth Daily. atorvaSTATin 20 mg tablet Take 20 mg by mouth nightly. aka: LIPITOR azaTHIOprine 50 mg tablet Take 50-100 tablets by mouth (see instruction). Take 50 mg in the morning and 100 mg night ly aka: IMURAN BANOPHEN 25 MG capsule Generic drug: diphenhydrAMINE Take 25 mg by mouth nightly as needed. buprenorphine 20 mcg/hr patch Place 1 patch onto the skin Once a week. aka: BUTRANS busPIRone 10 MG tablet Take 10 mg by mouth every morning. aka: BUSPAR CHANTIX 1 MG tablet Generic drug: varenicline Take 1 mg by mouth 2 times daily. cloNIDine 0.3 mg/[address] 1 patch onto the skin Once a week. aka: CATAPRES ergocalciferol 1.25 mg (50,000 units) capsule Take 50,000 Units by mouth Once a week. aka: VITAMIN D2 FREESTYLE HUAN 14 DAY SENSOR Misc LANTUS SOLOSTAR 100 units/mL injection (pen) Generic drug: insulin glargine Inject 10 Units under the skin nightly. levothyroxine 300 mcg tablet Take 300 mcg by mouth every morning (before breakfast). aka: SYNTHROID magnesium oxide 400 mg tablet Take 1 tablet by mouth Daily. aka: MAG-OX metFORMIN 500 mg tablet Take 500 mg by mouth 2 times daily (with breakfast & dinner). aka: GLUCOPHAGE pregabalin 150 MG capsule Take 150-300 mg by mouth (see instruction). Take 150 mg in the morning and 300 mg in the e vening aka: LYRICA Respiratory Therapy Supplies Misc Portable oxygen concentrator to provide O2 at 1 l/m continuous via nasal cannula. Duration : Lifetime Dx: COPD J44.9 tiotropium 18 mcg inhalation capsule Inhale 18 mcg into the lungs Daily. aka: SPIRIVA tiZANidine 4 mg tablet Take 8 mg by mouth nightly as needed. aka: ZANAFLEX torsemide 20 mg tablet Take 20 mg by mouth Daily. aka: DEMADEX traZODone 100 mg tablet Take 300 mg by mouth nightly. aka: DESYREL vortioxetine 10 mg tablet Take 10 mg by mouth every morning. aka: TRINTELLIX Disposition: home Condition: Stable Code Status: Prior Discharge took 40 minutes, to include final examination, discussion of admission, and prepa ration of prescriptions, instructions for on-going care, follow-up and documentation of disc harge summary. Iva Buck DO 7:04 AM documented in this e ncounter Medications at Time of Discharge + + [...] + + + +---------+ + + | AMITIZA 24 MCG | Take 24 mcg by mouth | | 0 | 03/24/20 | | | capsule | Daily. | | | 19 | | + + + +---------+ + [...] + + + +---------+ + + | BANOPHEN 25 MG | Take 25 mg by mouth | | 0 | 12/03/19 | | | capsule | nightly as needed. | | | 19 | | + + + +---------+ + [...] + + + +---------+ + + | Continuous Blood | | | 0 | 11/02/19 | | | Gluc Sensor | | | | 19 | | | (FREESTYLE HUAN 14 | | | | | | | DAY SENSOR) MISC | | | | | | + + + +---------+ + + | ergocalciferol | Take 50,000 Units by | | 0 | 01/13/20 | | | (VITAMIN D-2) 50,000 | mouth Once a week. | | | 19 | | | units capsule | | | [...] 300 mcg by | | 0 | 01/24/20 | | | (SYNTHROID) 300 mcg | mouth every morning | | | 19 | | | tablet | (before breakfast). | [...] +---------+ + + | metoprolol | Take 1 tablet by | 30 | 2 | 04/20/19 | | | succinate | mouth Daily. | tablet | | 20 | | | (TOPROL-XL) 50 mg 24 | | | | | | | hr tablet | [...] + + + +---------+ + + | tiotropium | Inhale 18 mcg into | | 0 | | | | (SPIRIVA) 18 mcg | the lungs Daily. | | | | | | inhalation capsule | | | [...] + + + +---------+ + + | varenicline | Take 1 mg by mouth 2 | | 0 | | | | (CHANTIX) 1 MG | times daily. | | | | | | tablet [...] documented as of this encounter Progress Notes Vivienne Daugherty RN - 04/19/2019 6:26 PM PSTPatient had a negative stress test today. She will possibly discharge in the am. No new issues. She has been off the nitro drip my entire shift and denies complaints of chest pain. Electronically signed by Vivienne Daugherty RN at 6:27 PM RobinLaine, - 04/19/2019 2:25 PM PSTFormatting of this note migh t be different from the original. [facility] Service: Cardiology Progress Note Hospital Day: LOS: 1 day Post-Op Day: * No surgery found * SUBJECTIVE Patient Summary: The patient is a 48-year-old female with a past medical history of s evere rheumatoid arthritis, history of pyoderma gangrenosum, type 2 diabetes, COPD, current tobacco habituation, prior methamphetamine use, hypertension who presented due to an episode of shortness of breath. With the shortness of breath, she also experienced substernal ches t pain which is somewhat atypical in nature. The patient is a poor historian. As an outpat ient, she has had a recent normal echocardiogram aside from mild LVH. She reportedly had a mildly elevated troponin in [place], troponins here have been undetectable. EKG was negat corrina for acute ST-T wave changes. She underwent a nuclear stress test today which was a po or quality study. She had no perfusion defects on prone imaging but was noted to have an ej ection fraction of 40% which made the test a moderate risk study. Events Overnight: None. The patient denies any chest pains or shortness of breath tod ay. Scheduled Medications aspirin 81 mg Oral Daily atorvaSTATin 20 mg Oral Nightly busPIRone 10 mg Oral QAM [START ON 04/20/2019] cloNIDine 1 patch Transdermal Weekly enoxaparin 40 mg Subcutaneous Daily levothyroxine 300 mcg Oral QAM AC metoprolol succinate 50 mg Oral Daily pregabalin 150 mg Oral Daily pregabalin 300 mg Oral Nightly torsemide 20 mg Oral Daily traZODone 300 mg Oral Nightly ziprasidone 60 mg Oral Nightly Continuous Infusions nitroglycerin in dextrose Stopped (04/19/19 0547) PRN Medications albuterol, aluminum & magnesium hydroxide-simethicone, diphenhydrAMINE, morphine, nitroglyc mello, nitroglycerin, ondansetron OBJECTIVE Vital Signs: BP (!) 173/104 | Pulse 66 | Temp 36.6 C (97.9 F) (Oral) | Resp 18 | Wt 99.5 kg (219 lb 5.7 oz) | SpO2 98% | No | BMI 36.50 kg/m Intake/Output Summary (Last 24 hours) at 04/19/2019 1425 Last data filed at 04/19/2019 1151 Gross per 24 hour Intake Output 800 ml Net -800 ml EXAM GENERAL: ill appearing female, appears older than stated age HEENT: Normocephalic, atraumatic. EYES: PERRL, sclerae anicteric, no xanthelsasmas NECK: No JVD, lymphadenopathy, thyromegaly, bruits. Carotid pulses are 2+ bilateral ly LUNGS: Clear bilaterally, with no rales, rhonchi or wheezing noted, respirations unlabore d HEART: Nondisplaced PMI, regular rate and rhythm, S1, S2 normal. No murmurs, rubs or ga llops noted. ABDOMEN: Soft, nontender, no organomegaly, masses or bruits. EXTREMITIES: No edema. Radial pulses 2+ bilaterally. DP and PT pulses are 2+ bilaterall y. Rheumatoid deformity of hands and feet. SKIN: Warm and dry, capillary refill is normal, no lesions. NEUROLOGIC: Awake, alert and oriented x 3. No focal motor deficits. PSYCHIATRIC: Appropriate, affect appears normal DATA CBC: Lab Results Component Value Date WBC 6.24 04/18/2019 RBC 3.39 (L) 04/18/2019 RBC 3.52 (L) 09/11/2014 HGB 11.2 (L) 04/18/2019 HCT 32.9 (L) 04/18/2019 MCV 96.9 04/18/2019 MCH 33.0 04/18/2019 MCHC 34.1 04/18/2019 PLT 261 04/18/2019 MPV 9.3 04/18/2019 DIFFTYPE AUTOMATED 04/18/2019 CMP: Lab Results Component Value Date NA 136 04/18/2019 K 3.8 04/18/2019 CL 108 04/18/2019 CO2 26 04/18/2019 ANIONGAP 6 04/18/2019 GLUF 184 (H) 09/11/2014 BUN 19 04/18/2019 GLOB 3.8 09/06/2014 AGRATIO 1.9 04/18/2019 BILITOT 0.4 08/17/2018 AST 19 04/18/2019 ALT 11 04/18/2019 EGFR 51 (L) 04/18/2019 CPK: No components found for: CKTOTAL Troponin I: No components found for: TROPONINI TSH: Lab Results Component Value Date TSH 0.58 08/15/2018 No results found for: BNP 04/19/19 1. Abnormal pharmacological nuclear stress test. Intermediate risk. 2. Technically difficult study. 3. No evidence of perfusion defects as shown on the prone images. 4. Mild systolic dysfunction with EF 41%. ASSESSMENT & PLAN 1. Chest pain 2. Shortness of breath 3. Severe rheumatoid arthritis 4. History of pyoderma gangrenosum 5. Type 2 diabetes 6. COPD 7. Current tobacco habituation 8. Prior methamphetamine use 9. HTN -The patient is a 48-year-old female with the above past medical histories who presented du e to an episode of shortness of breath. With the shortness of breath, she also experienced substernal chest pain which is somewhat atypical in nature. The patient is a poor historian . As an outpatient, she has had a recent normal echocardiogram aside from mild LVH. She re portedly had a mildly elevated troponin in [place], troponins here have been undetectable. EKG was negative for acute ST-T wave changes. She underwent a Lexiscan Cardiolite stress test today which was negative for any evidence of infarct or ischemia on perfusion imaging. The test was technically difficult, she was noted to have a mildly depressed ejection fract ion on that study. Given that she had a recent normal echocardiogram, I would rely more rose bernard on the echo for evaluation of her ejection fraction. At this point, no further cardiac testing is indicated. -Continue aspirin 81 mg by mouth daily -Continue atorvastatin 20 mg by mouth daily -Continue metoprolol succinate 50 mg by mouth daily -Continue torsemide 20 mg by mouth daily - The patient is ok to DC from a cardiac standpoint. She should follow up with me in the ia rdiology office 4 weeks post discharge. Thank you for allowing me to participate in the care of this patient. Code Status: Prior Primary Care Physician: Adele Batista DO pIva pearson DO - 04/19/2019 7:22 AM PST [facility] Adult Hospitalist Progress Note Hospital Day: 1 HPI SUMMARY: The patient is a 48 y.o. female with significant past medical history of coronary artery di sease several years ago, she mentions it was in the 90s and she possibly did not end up gett ing any cardiac stent, continued smoking presently smoking half a pack a day, hypertension, hyperlipidemia and diabetes mellitus, suffers from rheumatoid arthritis and chronic pain and has bipolar disorder. Presented to OSH with chest pain, pressure, nausea, and some diaphore sis. Transferred to [facility] for reportedly positive troponin. Enzymes have been negative here. SUBJECTIVE Events Overnight: Vitals stable. Cardiac enzymes negative. Plan for stress test today. Patient denies chest p ain, shortness of breath, cough, abd pain, nausea, or diaphoresis. All questions answered. OBJECTIVE Vital Signs: Blood pressure 131/71, pulse 65, temperature 36.9 C (98.4 F), temperature source Oral, resp. rate 20, weight 99.5 kg (219 lb 5.7 oz), SpO2 97 %, not currently . General: Sleepy in AM, no distress, lying in bed Eyes: PERRL, no scleral icterus, no dischage ENT: External ears normal, Nose normal, oropharynx moist no exudates Neck: Supple, no thyromegaly Cardiovascular: Regular rate and rhythm, no murmurs, no rub Respiratory: No respiratory distress, clear bilaterally, no wheezing Abdomen: Soft, non-tender, non-distended, active bowel sounds Back: No tenderness or deformity Skin: Warm and dry, no rashes Extremities: No edema. Rheumatoid deformity of hands and feet Neuro: No gross motor/sensory deficit. CN grossly intact. Alert and oriented to person, pl emerita, time. DATA Recent Labs Lab 04/18/19 1154 INR 1.0 Recent Labs Lab 04/18/19 1154 WBC 6.24 HGB 11.2* HCT 32.9* PLT 261 NA 136 K 3.8 CL 108 CO2 26 BUN 19 EGFR 51* CALCIUM 8.6 ANIONGAP 6 AST 19 ALT 11 No results for input(s): TROPONINT, CKMB in the last 168 hours. Invalid input(s): CKTOTAL, TROPONINI, CKMBINDEX, PCOTNI Recent Labs Lab 04/18/19 1522 GLUCOSEU NEGATIVE PROBLEM LIST Principal Problem: Chest pain Active Problems: Hypertension COPD, moderate Type II diabetes mellitus Rheumatoid arthritis Hypothyroidism Tobacco use disorder Bipolar II disorder JESUSITA and COPD overlap syndrome Diabetic polyneuropathy associated with type 2 diabetes mellitus COPD, frequent exacerbations IMPRESSION/PLAN: Chest pain, shortness of breath She reportedly had a mildly elevated troponin in [place], troponins here have been undete ctable. EKG was negative for acute ST-T wave changes. Dr Batista Consulted, appreciate recommendations: - I recommend a pharmacologic nuclear stress test prior to discharge. -Continue aspirin 81 mg by mouth daily -Continue atorvastatin 20 mg by mouth daily -Continue metoprolol succinate 50 mg by mouth daily -Continue torsemide 20 mg by mouth daily -Further recommendations pending results of stress testing. Diabetes mellitus: A1c 5.9. Hold metformin. Continue statin and baby aspirin. May not advis e any ACEI/ARB at this time because of somewhat poor renal function as compared to before creatinine 1.14. History of smoking with COPD with history of obstructive sleep apnea:not in exacerbation. Continue with albuterol inhaler when necessary. If on Chantix, will continue that. Hypertension: Continue with torsemide, advised metoprolol XL. Continue with clonidine patc h. Hypothyroidism: Continue Synthroid. Peripheral neuropathy: Continue Lyrica. Bipolar disorder: We will try to continue with home medications as much as possible. He ap pears to be taking Geodon among other medications. DVT prophylaxis: SCDs. Patient received therapeutic dose of Lovenox x1. Troponin negative, will start lovenox for DVT ppx. Iva Buck DO 04/19/2019 Manju Anderson RN - 0 04/19/2019 5:54 AM PSTPt off Nitro @ 0545. Pt has c/o headache throughout the night. Have e ducated on the side effects of nitro. Pt eventually drifted off the sleep. Need to confirm dosages on home medications. No CP overnight. NPO since 0000. Stress test scheduled for today. Chart check complete. Manju Gibbons RN Laine Kelly DO - 03/21 4:15 PM PST [facility] Service: Cardiology Initial Consult Note Name of Director Of Litigation: Laine Batista DO Reason for Consultation: Chest pain Requesting Physician: Dr. Hitchcock, Hospitalist History Obtained From: patient CHIEF COMPLAINT: SOB HISTORY OF PRESENT ILLNESS: Cardiac problem list Hypertension Noncardiac problem list Severe rheumatoid arthritis History of pyoderma gangrenosum Type 2 diabetes COPD Current tobacco habituation Prior methamphetamine use The patient is a 48-year-old female who is known to me as an outpatient who presented with shortness of breath. The patient reports that when she woke up this morning she felt nauseo us and fatigued. She checked her blood sugar and it was in the 60s, she ate some food. Aft er this, she noticed that she started feeling short of breath. She put on her home oxygen b ut continued to have symptoms so she presented to the emergency department in [place]. Hannah harmon reportedly had a very mildly elevated troponin in the ER in [place] and was subsequently transferred to [facility]. Here, her troponin has been undetectable. EKG samariaon strates normal sinus rhythm with a left axis deviation and no acute ST-T wave abnormalities. She reports that she still has some shortness of breath in the ER and reports that she has chest pain "because she is short of breath". The chest pain is substernal. She is unable to qualify the pain. She reports that it is been intermittent since she got up this morning . She had some mild alleviation with nitroglycerin. REVIEW OF SYSTEMS Constitutional: Positive for fatigue. HENT: Negative for nosebleeds. Eyes: Negative for visual disturbance. Respiratory: Negative for cough and positive for shortness of breath. Cardiovascular: see HPI Gastrointestinal: positive for nausea, negative for vomiting, abdominal pain and blood in s tool. Genitourinary: Negative for hematuria or dysuria. Musculoskeletal: Negative for myalgias, back pain and positive for arthralgias. Skin: Negative for color change. Neurological: Negative syncope and numbness. Positive for dizziness. Hematological: Does not bruise/bleed easily. Psychiatric/Behavioral: The patient is nervous/anxious. PAST MEDICAL & SURGICAL HISTORY Past Medical History: Diagnosis Date Abnormal chest CT Most likely postoperative decortication changes Acid reflux disease Angina pectoris (HCC) Arrhythmia Bipolar 1 disorder (HCC) CHRONIC TENSION HEADACHE Classical migraine without mention of intractable migraine Diabetes mellitus, type 2 (HCC) Empyema lung ([facility]) 2006 right GI bleeding Hypercholesterolemia Hypertension Hypothyroidism IBS (irritable bowel syndrome) Knee pain Lymphedema Myocardial infarction (HCC) Nausea and vomiting Nocturia Obesity Panic anxiety syndrome Pneumonia Pyoderma gangreosum-LE RA (rheumatoid arthritis) ([facility]) Followed by Dr. Becerra Rheumologist in [place] Reflux esophagitis Restless leg syndrome Urinary hesitancy Vitamin D deficiency Wrist pain Past Surgical History: Procedure Laterality Date CATARACT REMOVAL Bilateral 01/2018 colonoscopy COLONOSCOPY ENDOSCOPY PMTX surgery 2006 UPPER GASTROINTESTINAL ENDOSCOPY MEDICATIONS Home Medications (Not in a hospital admission) Inhospital Medications aspirin 81 mg Oral Daily atorvaSTATin 20 mg Oral Nightly cloNIDine 1 patch Transdermal Weekly metoprolol succinate 50 mg Oral Daily torsemide 20 mg Oral Daily nitroglycerin in dextrose 20 mcg/min (04/18/19 1514) Allergies Allergies Allergen Reactions Adhesive & Tape [...] file Gets together: Not on file Attends jew service: Not on file Active member of [...] her mother. PHYSICAL EXAM Vital Signs: BP 143/81 | Pulse 99 | Temp 37.1 C (98.7 F) (Oral) | Resp (!) 41 | SpO2 97% No intake or output data in the 24 hours ending 04/18/19 1615 GENERAL: ill appearing female, appears older than [...] deficits. PSYCHIATRIC: Appropriate, affect appears normal DATA Recent Labs Lab 04/18/19 1154 NA 136 K 3.8 CO2 26 BUN 19 EGFR 51* CALCIUM 8.6 No results for input(s): CKMB, TSH in the last 168 hours. Invalid input(s): CKTOTAL, CKMBINDEX, TROPONINI, BRAIN NATRIURETIC PEPTIDE, INR Recent Labs Lab 04/18/19 1154 WBC 6.24 HGB 11.2* HCT 32.9* MCV 96.9 PLT 261 Lab Results Component Value Date CHOL 175 04/18/2019 TRIG 79 04/18/2019 LDL 106 (H) 04/18/2019 HDL 53 04/18/2019 GLUF 184 (H) 09/11/2014 GLUF 222 (H) 09/10/2014 TSH 0.58 08/15/2018 EK01/03/19 ordered and reviewed by myself normal sinus rhythm 86 BPM, LAD, anterior septa l infarct age undetermined. 04/18/2019 normal sinus rhythm 77 bpm, left axis deviation. Last Echo: 01/2019 Summary Normal left ventricular [...] Procedure: Continuous ambulatory ECG for the duration of14 days 15hoursand 31 minutes . During this recording, the underlying rhythm is sinus rhythm, the lowest heart rate was 50BPM, the highest heart [id number], [id number]. During this recording inte rval, there were no atrial arrhythmias. Also, there was one run of non sustained VT that w as 7 beats at 138 BPM.There were no AV conduction abnormalitiesobserved. The heart rat e trends diddemonstrate a normal circadian pattern. In the patient's diary, symptoms of dizziness, fatigue, shortness of breath corresponded to sinus rhythm. ASSESSMENT & PLAN 1. Chest pain 2. Shortness of breath 3. Severe rheumatoid arthritis 4. History of pyoderma gangrenosum 5. Type 2 diabetes 6. COPD 7. Current tobacco habituation 8. Prior methamphetamine use 9. HTN -The patient is a 48-year-old female with the above past medical histories who presented du e to an episode of shortness of breath. With the shortness of breath, she also experienced substernal chest pain which is somewhat atypical in nature. The patient is a poor historian . As an outpatient, she has had a recent normal echocardiogram aside from mild LVH. She re portedly had a mildly elevated troponin in [place], troponins here have been undetectable. EKG was negative for acute ST-T wave changes. - I recommend a pharmacologic nuclear stress test prior to discharge. -Continue aspirin 81 mg by mouth daily -Continue atorvastatin 20 mg by mouth daily -Continue metoprolol succinate 50 mg by mouth daily -Continue torsemide 20 mg by mouth daily -Further recommendations pending results of stress testing. Thank you for allowing me to participate in the care of this patient. Code Status: Prior Primary Care Physician: Adele Batista DO 04/18/2019 Vivienne Acosta RN - 1 3:42 PM PSTCalled placed to RN to receive report no answer at this time. Left elvia childs in sticky note also. Brooke Self [facility] - 04/18/2019 2:19 PM PSTRx Admission Medication History Note I have reviewed the medication history for appropriate doses obtained by: ED Pharmacist - Updated torsemide dose to 20 mg daily - Added Geodon 60 mg + 80 mg nightly per patient, unable to verify fill history - Updated Lyrica to 150 mg in the morning and 300 mg in the evening - Verified fill of Butrans patch, patient switches on and patch is currently on - Clonidine patch is switched on , patch is currently on - Added Spiriva and removed Advair per patient - Updated dose of Chantix to 1 mg BID - Updated dose of Lantus to 10 units nightly - Updated azathioprine to 50 mg in the morning and 100 mg in the evening Please Review and Order Home Medications as necessary. Thanks Casper MartinezD, BCCCP documented in t his encounter Plan of Treatment +--------+---------+ + + + | Date | Type | Specialty | Care Team | Description | +--------+---------+ + + + | 06/19/ | Office | Neurology | Jimbo Samayoa MD | | | 2019 | Visit | | [address] | | | | | | [place] | | | | | | [address] | | | | | | | | +--------+---------+ + + + | 07/26/ | Office | Pulmonology | Navdeep Grande, | | | 2019 | Visit | | [address] | | | | | | [place] | | | | | | [address] | | | | | | | | +--------+---------+ + + + + +------+--------+ + + | Name | Type | Priori | Associated Diagnoses | Date/Time | | | | ty | | | + +------+--------+ + + | ED INFORMATION | JODY | Routin | | 04/18/2019 11:30 AM | | EXCHANGE | | e | | PST | + +------+--------+ + + documented as [...] | | | ?MRN: | | | [id number] | | | [id number] | | | riteri | | | [...] | | | ton:? | | | [id number] | | | -[phone]. | | | [...] | | | St. | | | [place] | | | y | | | [...] | | | St. | | | [place] | | | y H. | | [...] | | | St. | | | [place] | | | y H. | | [...] | | | St. | | | [place] | | | y H. | | [...] | | | St. | | | [place] | | | y H. | | [...] | | | St. | | | [place] | | | y H. | | [...] | | | St. | | | [place] | | | y H. | | [...] | | | St. | | | [place] | | | y H. | | [...] | | | [id number] | | | [id number] | | | 93 | | | [...] | | | ed.? | | | 2019 | | | [employer] | | | tive | | | [employer] | | | l | | | [employer] | | | logies | | | , [employer] | | | - | | | [email or web address] | | | llecti | | | vemedi | | | [email or web address] | | | m | +---+--------+ documented in this encounter Results Basic Metabolic Panel (04/20/2019 6:16 AM PST) [...] 49 (L)Comment: GFR <60: | >60 | [facility] | | | GFR | CHRONIC KIDNEY [...] | | | | | | [facility]D [facility] traceable | | | | | | equation.Testing | | | | | | performed at [facility];[address] | | | | | | [facility];[place], [place] | | | | | | [address] | | | | + + + + + + + + | Specimen | + + | Blood | + + + + + + + | Performing | Address | City/State/Zipcode | Phone Number | | Organization | | | | + + + + + | [facility] | [address] | [place] [address] | [phone] | + + + + + Phosphorus (04/20/2019 6:16 AM PST) + + + + + + | Component | Value | Ref Range | Performed | Pathologist | | | | | At | Signature | + + + + + + | Phosphorus | 4.9 (H)Comment: Testing | 2.3 - 4.8 mg/dL | TE | | | | performed at [facility];[address] | | LAB[address]AT[address] | | | | [address];[place] | | | | | | [address] | | | | + + + + + + + + | Specimen | + + | Blood | + + + + + + + | Performing | Address | City/State/Zipcode | Phone Number | | Organization | | | | + + + + + | [facility] | [address] | [place] [address] | [phone] | + + + + + Magnesium (04/20/2019 6:16 AM PST) + + + + + + | Component | Value | Ref Range | Performed | Pathologist | | | | | At | Signature | + + + + + + | Magnesium | 1.8Comment: Testing | 1.7 - 2.4 mg/dL | TE | | | | performed at [facility];[address] | | LABORATORY | | | | [address];[place], [place] | | | | | | [address] | | | | + + + + + + + + | Specimen | + + | Blood | + + + + + + + | Performing | Address | City/State/Zipcode | Phone Number | | Organization | | | | + + + + + | [facility] | [address] | [place] [address] | [phone] | + + + + + CBC no Differential (04/20/2019 6:16 AM PST) [...] [facility] | | | | performed at [facility];[address] | | LABORATORY | | | | [address];[place] | | | | | | [address] | | | | + + + + + + + + | Specimen | + + | Blood | + + + + + + + | Performing | Address | City/State/Zipcode | Phone Number | | Organization | | | | + + + + + | [facility] | [address] | [place] [address] | [phone] | + + + + + NM [...] | Procedure Note | + + | yTree Ferraro MD - 04/19/2019 12:24 PM PST [...] + + Troponin I (04/18/2019 11:07 PM PST) + + + + + + | Component | Value | Ref Range | Performed | Pathologist | | | | | At | Signature | + + + + + + | Troponin I | <0.006Comment: 0.04 | 0.00 - 0.04 | [facility] | | | | ng/mL or less [...] at | | | | | | [facility];[address] [place] [address] | | | | | | Bl;[place] [address] | | | | + + + + + + + + | Specimen | + + | Blood | + + + + + + + | Performing | Address | City/State/Zipcode | Phone Number | | Organization | | | | + + + + + | [facility] | [address] | [place] [address] | [phone] | + + + + + Troponin I (04/18/2019 4:21 PM PST) + + + + + + | Component | Value | Ref Range | Performed | Pathologist | | | | | At | Signature | + + + + + + | Troponin I | 0.006Comment: 0.04 | 0.00 - 0.04 | [facility] [...] at | | | | | | [facility];[address] [place] [address] | | | | | | [facility];[place] [address] | | | | + + + + + + + + | Specimen | + + | Blood | + + + + + + + | Performing | Address | City/State/Zipcode | Phone Number | | Organization | | | | + + + + + | [facility] | [address] | [place] [address] | [phone] | + + + + + Urinalysis [...] - 1.030 | [facility] | | | [place], | | | LABORATORY | | | [...] TE | | | | performed at [facility];[address] | | LAB[address]AT[address] | | | | [address];[place], [place] | | | | | | [address] | | | | + + + + + + + + | Specimen | + + | Urine | + + + + + + + | Performing | Address | City/State/Zipcode | Phone Number | | Organization | | | | + + + + + | [facility] | [address] | [place] [address] | [phone] | + + + + + Drugs [...] | Tetrahydroc | NEGATIVEComment: | NEG | [facility] | | | annabinol(T | Positive cutoff [...] | | | | | performed at [facility];[address] | | | | | | [facility];[place], [place] | | | | | | [address] | | | | + + + + + + + + | Specimen | + + | Urine - Urine | | specimen (specimen) | + + + + + + + | Performing | Address | City/State/Zipcode | Phone Number | | Organization | | | | + + + + + | [facility] | [address] | [place] [address] | [phone] | + + + + + ECG [...] | | | | | ONLY, -COMPUTER (349), | | | | | | international editorial producer Beth Quinn | | | | | [...] HDL | 53 | >40 mg/dL | [facility] | | | | | | LABORATORY | | + + + + + + | LDL, | 106 (H)Comment: Testing | <100 mg/dL | [facility] | | | Calculated | performed at [facility], [address] | | LABORATORY | | | | [address], | | | | | | [place] [address] | | | | + + + + + + + + | Specimen | + + | Blood | + + + + + + + | Performing | Address | City/State/Zipcode | Phone Number | | Organization | | | | + + + + + | [facility] | [address] | [place] [address] | [phone] | + + + + + Hemoglobin A1C (04/18/2019 11:54 AM PST) + + + + + + | Component | Value | Ref Range | Performed | Pathologist | | | | | At | Signature | + + + + + + | Hemoglobin | 5.9Comment: HbA1c method | 4.0 - 6.0 % | [facility] | | | A1c | is certified by NGSP | | LABORATORY | | | | [...] | 123Comment: Estimated | <154 mg/dL | [facility] | | | Average | Average Glucose | | LABORATORY | | | Glucose | calculated from | | | | | | hemoglobin A1c by use of | | | | | | the ADArecommended | | | | | | formula.Testing | | | | | | performed at [facility], [address] | | | | | | [facility], | | | | | | [place] [address] | | | | + + + + + + + + | Specimen | + + | Blood | + + + + + + + | Performing | Address | City/State/Zipcode | Phone Number | | Organization | | | | + + + + + | [facility] | [address] | [place] [address] | [phone] | + + + + + Protime [...] | | | | | performed at [facility] | | | | | | [facility];[place], [place] | | | | | | [address] | | | | + + + + + + + + | Specimen | + + | Blood | + + + + + + + | Performing | Address | City/State/Zipcode | Phone Number | | Organization | | | | + + + + + | [facility] | [address] | [place] [address] | [phone] | + + + + + Troponin I (04/18/2019 11:54 AM PST) + + + + + + | Component | Value | Ref Range | Performed | Pathologist | | | | | At | Signature | + + + + + + | Troponin I | 0.006Comment: 0.04 | 0.00 - 0.04 | [facility] [...] at | | | | | | [facility];[address] [facility] | | | | | | Bl;[place] [address] | | | | + + + + + + + + | Specimen | + + | Blood | + + + + + + + | Performing | Address | City/State/Zipcode | Phone Number | | Organization | | | | + + + + + | [facility] | [address] | [place] [address] | [phone] | + + + + + Comprehensive [...] 11 | 10 - 65 U/L | [facility] | | | | [...] | | | | | performed at [facility];[address] | | | | | | [facility];[place], [place] | | | | | | [address] | | | | + + + + + + + + | Specimen | + + | Blood | + + + + + + + | Performing | Address | City/State/Zipcode | Phone Number | | Organization | | | | + + + + + | [facility] | [address] | [place] [address] | [phone] | + + + + + CBC [...] at | | | | | | [facility];[address] [place] [address] | | | | | | Blvd;[place] [address] | | | | + + + + + + + + | Specimen | + + | Blood | + + + + + + + | Performing | Address | City/State/Zipcode | Phone Number | | Organization | | | | + + + + + | [facility] | [address] | [place] [address] | [phone] | + + + + + documented in this encounter Visit Diagnoses + + | Diagnosis | + + | NSTEMI (non-ST elevated myocardial infarction) (HCC) Acute myocardial infarction, | | subendocardial infarction, episode of care unspecified | + + | Chest pain, unspecified type | + + | COPD, frequent exacerbations (HCC) Chronic airway obstruction, not elsewhere | | classified | + + | Type II diabetes mellitus (HCC) Type II or unspecified type diabetes mellitus without | | mention of complication, not stated as uncontrolled | + + | COPD, moderate (HCC) Chronic airway obstruction, not elsewhere classified | + + | Hypothyroidism Unspecified hypothyroidism | + + | Tobacco use disorder | + + | Bipolar II disorder (HCC) Other bipolar disorders | + + | Rheumatoid arthritis (HCC) | + + | JESUSITA and COPD overlap syndrome (HCC) | + + | Diabetic polyneuropathy associated with type 2 diabetes mellitus (HCC) | + + | Hypertension Unspecified essential hypertension | + + documented in this encounter Administered Medications + +--------+ +-------+------+------+ | Medication Order | MAR | Action | Dose | Rate | Site | | | Action | Date | | | | + +--------+ +-------+------+------+ | aspirin chewable tablet 81 mg | Given | 04/20/19 | 81 mg | | | | 81 mg, Oral, DAILY, First dose on | | 20 7:49 | | | | | 04/18/19 at 1240, Retime | | AM PST | | | | | first dose to TOMORROW if patient | | | | | | | has already received a dose of | | | | | | | aspirin TODAY., | | | | | | + +--------+ +-------+------+------+ +-------+ +-------+---+---+ | Given | 04/19/19 | 81 mg | | | | | 20 8:09 | | | | | | AM PST | | | | +-------+ +-------+---+---+ | Given | 04/18/20 | 81 mg | | | | | 19 1:06 | | | | | | PM PST | | | | +-------+ +-------+---+---+ +---+---+ | | | +---+---+ + +-------+ +-------+---+---+ | atorvaSTATin (LIPITOR) tablet | Given | 04/19/19 | 20 mg | | | | 20 mg 20 mg, Oral, NIGHTLY, | | 20 8:27 | | | | | First dose on Wed04/18/19 at | | PM PST | | | | | 2100 | | | | | | + +-------+ +-------+---+---+ +-------+ +-------+---+---+ | Given | 04/18/20 | 20 mg | | | | | 19 8:15 | | | | | | PM PST | | | | +-------+ +-------+---+---+ +---+---+ | | | +---+---+ + +-------+ +-------+---+---+ | busPIRone (BUSPAR) tablet 10 mg | Given | 04/20/19 | 10 mg | | | | 10 mg, Oral, EVERY MORNING, | | 20 7:49 | | | | | First dose on Wed04/19/19 at 0900 | | AM PST | | | | + +-------+ +-------+---+---+ +-------+ +-------+---+---+ | Given | 04/19/19 | 10 mg | | | | | 20 8:09 | | | | | | AM PST | | | | +-------+ +-------+---+---+ +---+---+ | | | +---+---+ + +---------+ +---------+---+ + | cloNIDine (CATAPRES) 0.3 mg/24 | Patch | 04/20/19 | 1 patch | | Arm-Left | | hr 1 patch 1 patch, Transdermal, | Applied | 20 12:01 | | | Upper | | WEEKLY, First dose (after last | | PM PST | | | | | modification) on Wed04/20/19 at | | | | | | | 0900 | | | | | | + +---------+ +---------+---+ + +---+---+ | | | +---+---+ + +-------+ +-------+---+---+ | diphenhydrAMINE (BENADRYL) | Given | 04/18/20 | 25 mg | | | | capsule 25 mg 25 mg, Oral, EVERY | | 19 11:40 | | | | | 6 HOURS PRN, Itching, Starting | | PM PST | | | | | 04/18/19 at 2256 | | | | | | + +-------+ +-------+---+---+ +---+---+ | | | +---+---+ + +-------+ +--------+---+ + | enoxaparin (LOVENOX) 100 mg/mL | Given | 04/18/20 | 100 mg | | Abdomen- | | injection 100 mg 100 mg (rounded | | 19 1:04 | | | RLQ | | from 104.3 mg = 1 mg/kg | | PM PST | | | | | 104.3 kg), Subcutaneous, ONCE, | | | | | | | 04/18/19 at 1235, For 1 dose | | | | | | + +-------+ +--------+---+ + +---+---+ | | | +---+---+ + +-------+ +-------+---+ + | enoxaparin (LOVENOX) 40 mg/0.4 | Given | 04/19/19 | 40 mg | | Abdomen- | | mL injection 40 mg 40 mg, | | 20 11:31 | | | RUQ | | Subcutaneous, EVERY 24 HOURS | | AM PST | | | | | (Daily), First dose on Wed04/19/19 | | | | | | | at 0930 | | | | | | + +-------+ +-------+---+ + +---+---+ | | | +---+---+ + +---------+ + + +---+ | heparin in dextrose 100 | New Bag | 04/18/20 | 9.588 | 10 mL/hr | | | units/mL infusion 9.588 | | 19 12:23 | Units/kg | | | | Units/kg/hr | | PM PST | /hr | | | | 104.3 kg (10.0003 mL/hr, rounded | | | | | | | to 10 mL/hr), at 10 mL/hr, | | | | | | | Intravenous, TITRATED, Starting | | | | | | | 04/18/19 at 1225, CARDIAC | | | | | | | DOSE HEPARIN PROTOCOL STARTING | | | | | | | heparin infusion dose 12 | | | | | | | units/kg/hr, initial rate max | | | | | | | 1,000 units/hr. Draw APTT from | | | | | | | an IV site other than heparin IV | | | | | | | site 6 hours after starting a | | | | | | | heparin infusion. APTT Nomogram | | | | | | | for ADJUSTING heparin APTT < 20 | | | | | | | seconds: Bolus 5,000 units and | | | | | | | Increase rate by 3 units/kg/hr | | | | | | | Repeat aPTT 6 hr after change | | | | | | | APTT 20-29 seconds: Bolus 2,500 | | | | | | | units and Increase rate by 2 | | | | | | | units/kg/hr Repeat aPTT 6 hr | | | | | | | after change APTT 30-45 seconds | | | | | | | Increase rate by 2 units/kg/hr | | | | | | | Repeat aPTT 6 hr after change | | | | | | | APTT 46-56 seconds: (GOAL | | | | | | | RANGE): Cardiac dose | | | | | | | therapeutic range No change | | | | | | | APTT 57-75 seconds: Decrease | | | | | | | rate by 2 units/kg/hr Repeat | | | | | | | aPTT 6 hr after change IF aPTT > | | | | | | | 75 seconds: Decrease rate by 3 | | | | | | | units/kg/hr Do not hold | | | | | | | infusion Repeat aPTT 6 hr after | | | | | | | change, | | | | | | + +---------+ + + +---+ +---+---+ | | | +---+---+ + +-------+ +---------+---+---+ | levothyroxine (SYNTHROID) | Given | 04/20/19 | 300 mcg | | | | tablet 300 mcg 300 mcg, Oral, | | 20 6:21 | | | | | DAILY BEFORE BREAKFAST, First | | AM PST | | | | | dose on Wed04/19/19 at 0730, Give | | | | | | | before breakfast., | | | | | | + +-------+ +---------+---+---+ +-------+ +---------+---+---+ | Given | 04/19/19 | 300 mcg | | | | | 20 8:09 | | | | | | AM PST | | | | +-------+ +---------+---+---+ +---+---+ | | | +---+---+ + +-------+ +-------+---+---+ | metoprolol succinate | Given | 04/20/19 | 50 mg | | | | (TOPROL-XL) ER tablet 50 mg 50 | | 20 7:49 | | | | | mg, Oral, DAILY, First dose on | | AM PST | | | | | 04/18/19 at 1600, Tablet may | | | | | | | be cut where scored but do not | | | | | | | crush., | | | | | | + +-------+ +-------+---+---+ +-------+ +-------+---+---+ | Given | 04/18/20 | 50 mg | | | | | 19 5:36 | | | | | | PM PST | | | | +-------+ +-------+---+---+ +---+---+ | | | +---+---+ + +-------+ +------+---+---+ | morphine injection 1-4 mg 1-4 | Given | 04/19/19 | 2 mg | | | | mg, Intravenous, EVERY 1 HOUR | | 20 3:06 | | | | | PRN, Pain, chest pain, Starting | | AM PST | | | | | 04/18/19 at 1234, Use if | | | | | | | nitroglycerin ineffective to | | | | | | | relieve pain., | | | | | | + +-------+ +------+---+---+ +-------+ +------+---+---+ | Given | 04/18/20 | 2 mg | | | | | 19 9:57 | | | | | | PM PST | | | | +-------+ +------+---+---+ | Given | 04/18/20 | 2 mg | | | | | 19 5:36 | | | | | | PM PST | | | | +-------+ +------+---+---+ + +---+ | | | + +---+ | nitroglycerin (NITROSTAT) SL | | | tablet 0.4 mg 0.4 mg, | | | Sublingual, EVERY 5 MIN PRN, | | | Chest pain, Starting 04/18/19 | | | at 1232, For 3 doses, Maximum of | | | 3 doses in 15 minutes., | | + +---+ | | | + +---+ + +-------+ +--------+---+---+ | nitroglycerin (NITROSTAT) SL | Given | 04/18/20 | 0.4 mg | | | | tablet 0.4 mg 0.4 mg, | | 19 1:06 | | | | | Sublingual, EVERY 5 MIN PRN, | | PM PST | | | | | Chest pain, Starting Wed04/18/19 | | | | | | | at 1232, May give up to 3 doses. | | | | | | | Notify physician after 2nd dose | | | | | | | given. Hold for SBP<100, | | | | | | + +-------+ +--------+---+---+ +---+---+ | | | +---+---+ + +---------+ +---------+-------+---+ | nitroglycerin in dextrose 200 | New Bag | 04/18/20 | 5 | 1.5 | | | mcg/mL infusion 0-200 mcg/min | | 19 12:16 | mcg/min | mL/hr | | | (0-60 mL/hr), at 0-60 mL/hr, | | PM PST | | | | | Intravenous, TITRATED, Starting | | | | | | | Wed04/18/19 at 1210, Titration | | | | | | | Instruction: See below, Goal: SBP | | | | | | | less than 160, Initial dose: 5 | | | | | | | mcg/min, Increase rate by: 5 | | | | | | | mcg/min every 5 minutes until 20 | | | | | | | mcg/min achieved, then increase | | | | | | | by 10 mcg/min every 5 minutes., | | | | | | | Decrease rate by: 10 mcg/min | | | | | | | every 5 minutes., *: Titrate drug | | | | | | | per order as tolerated. | | | | | | | Titration may vary based on the | | | | | | | patient | | | | | | | | | | | | | | s critical condition. | | | | | | + +---------+ +---------+-------+---+ +---+---+ | | | +---+---+ + + + +---------+---------+---+ | nitroglycerin in dextrose 200 | Rate/Dos | 04/19/19 | 10 | 3 mL/hr | | | mcg/mL infusion 0-200 mcg/min | e Change | 20 1:00 | mcg/min | | | | (0-60 mL/hr), at 0-60 mL/hr, | | AM PST | | | | | Intravenous, TITRATED, Starting | | | | | | | 04/18/19 at 1335, Titration | | | | | | | Instruction: See below, Goal: SBP | | | | | | | less than 160, Initial dose: 5 | | | | | | | mcg/min, Increase rate by: 5 | | | | | | | mcg/min every 5 minutes until 20 | | | | | | | mcg/min achieved, then increase | | | | | | | by 10 mcg/min every 5 minutes., | | | | | | | Decrease rate by: 10 mcg/min | | | | | | | every 5 minutes., *: Titrate drug | | | | | | | per order as tolerated. | | | | | | | Titration may vary based on the | | | | | | | patient | | | | | | | | | | | | | | s critical condition. | | | | | | + + + +---------+---------+---+ + + +---------+---------+---+ | Rate/Dose Change | 04/19/19 | 20 | 6 mL/hr | | | | 20 12:35 | mcg/min | | | | | AM PST | | | | + + +---------+---------+---+ | New Bag | 04/18/20 | 20 | 6 mL/hr | | | | 19 3:14 | mcg/min | | | | | PM PST | | | | + + +---------+---------+---+ +---+---+ | | | +---+---+ + +-------+ +------+---+---+ | ondansetron (ZOFRAN) injection | Given | 04/18/20 | 4 mg | | | | 4 mg 4 mg, Intravenous, EVERY 6 | | 19 1:39 | | | | | HOURS PRN, Nausea, Vomiting, | | PM PST | | | | | Starting 04/18/19 at 1330 | | | | | | + +-------+ +------+---+---+ +---+---+ | | | +---+---+ + +-------+ +--------+---+---+ | pregabalin (LYRICA) capsule 150 | Given | 04/20/19 | 150 mg | | | | mg 150 mg, Oral, DAILY, First | | 20 7:49 | | | | | dose on Wed04/19/19 at 0900 | | AM PST | | | | + +-------+ +--------+---+---+ +-------+ +--------+---+---+ | Given | 04/19/19 | 150 mg | | | | | 20 8:09 | | | | | | AM PST | | | | +-------+ +--------+---+---+ +---+---+ | | | +---+---+ + +-------+ +--------+---+---+ | pregabalin (LYRICA) capsule 300 | Given | 04/19/19 | 300 mg | | | | mg 300 mg, Oral, NIGHTLY, First | | 20 8:26 | | | | | dose on Wed04/18/19 at 2345 | | PM PST | | | | + +-------+ +--------+---+---+ +-------+ +--------+---+---+ | Given | 04/18/20 | 300 mg | | | | | 19 11:40 | | | | | | PM PST | | | | +-------+ +--------+---+---+ +---+---+ | | | +---+---+ + +-------+ +--------+---+---+ | regadenoson (LEXISCAN) | Given | 04/19/19 | 0.4 mg | | | | injection 0.4 mg 0.4 mg, | | 20 11:30 | | | | | Intravenous, ONCE, Wed04/19/19 at | | AM PST | | | | | 1000, For 1 dose, Give IV push | | | | | | | over 10 seconds, then follow | | | | | | | immediately with 5 mL saline | | | | | | | flush., Nuclear Medicine | | | | | | + +-------+ +--------+---+---+ +---+---+ | | | +---+---+ + +-------+ + +---+---+ | technetium TC-99M sestamibi | Given | 04/19/19 | 11.3 | | | | (CARDIOLITE) injection 11.3 | | 20 11:29 | millicur | | | | millicurie 11.3 millicurie, | | AM PST | ies | | | | Intravenous, ONCE, Wed04/19/19 at | | | | | | | 1000, For 1 dose, Nuclear | | | | | | | Medicine | | | | | | + +-------+ + +---+---+ +---+---+ | | | +---+---+ + +-------+ + +---+---+ | technetium TC-99M sestamibi | Given | 04/19/19 | 32.1 | | | | (CARDIOLITE) injection 30 | | 20 11:28 | millicur | | | | millicurie 30 millicurie, | | AM PST | ies | | | | Intravenous, ONCE, 04/19/19 at | | | | | | | 1000, For 1 dose, Nuclear | | | | | | | Medicine | | | | | | + +-------+ + +---+---+ +---+---+ | | | +---+---+ + +-------+ +-------+---+---+ | torsemide (DEMADEX) tablet 20 | Given | 04/20/19 | 20 mg | | | | mg 20 mg, Oral, DAILY, First | | 20 7:48 | | | | | dose on Wed04/18/19 at 1430 | | AM PST | | | | + +-------+ +-------+---+---+ +-------+ +-------+---+---+ | Given | 04/19/19 | 20 mg | | | | | 20 8:09 | | | | | | AM PST | | | | +-------+ +-------+---+---+ +---+---+ | | | +---+---+ + +-------+ +--------+---+---+ | traZODone (DESYREL) tablet 300 | Given | 04/19/19 | 300 mg | | | | mg 300 mg, Oral, NIGHTLY, First | | 20 8:27 | | | | | dose on Wed04/18/19 at 2315 | | PM PST | | | | + +-------+ +--------+---+---+ +---+---+ | | | +---+---+ + +-------+ +-------+---+---+ | ziprasidone (GEODON) capsule 60 | Given | 04/19/19 | 60 mg | | | | mg 60 mg, Oral, NIGHTLY, First | | 20 8:27 | | | | | dose on Wed04/18/19 at 2315, | | PM PST | | | | | Reproductive Risk: [...]
--- OUTSIDE RECORDS SUMMARY | ~2019-05-03 | XMS | Encounter Summary ---
Demographics + + + | Address | [address] | | | [place] [address] | + + + | Home Phone [...] | | | | | [place] [address] | | + + + + + | Robson Min | ECON | Unknown | | + + + + + | Isabella Whitehead | ECON | Unknown | | + + + + + Care Team Providers + +------+ + | Care Art Museum Aide Name | Role | Phone | [...] | SR | | | | | [phone] | | | +--------+ + + + [...] MICHELLE | | | | | | [address] | | | | | | | | +--------+---------+ + + + | 07/26/ | Office | Pulmonology | Navdeep Grande, | | | 2019 | Visit | | MD Cely GORE | | | | | | [place] | | | | | | [id number] | | | | | | | | +--------+---------+ + + + documented as of this encounter Visit Diagnoses Not on filedocumented in this encounter
--- OUTSIDE RECORDS SUMMARY | ~2019-05-03 | XMS | Encounter Summary ---
Demographics + + + | Address | [address] | | | [place] [address] | + + + | Home Phone [...] | | | | | [place] [address] | | + + + + + Care Team Providers + +------+ + | Care Cardiac Exercise Specialist Name | Role | Phone | + +------+ + PCP | Unavailable | + +------+ + Encounter Details +--------+ + + + + | Date | Type | Department | Care Team | Description | +--------+ + + + + | 10/22/ | Respiratory | | Other, Faculty | | | 2006 | Therapy | | [phone] | | +--------+ + + + + [...] [facility] | [address] | [place], [place] | | | DIAGNOSTICS - | [address] | [address] | | | PULMONARY FUNCTION | | | | + + + + + documented in this encounter Visit Diagnoses Not on filedocumented in this encounter"
--- OUTSIDE RECORDS SUMMARY | ~2019-05-03 | XMS | Encounter Summary ---
Demographics + + + | Address | [address] | | | [place] [address] | + + + | Home Phone | | + + + | Preferred Language | Unknown | + + + | Marital Status | Single | + + + | Temple Affiliation | CHR | + + + [...] | | | | | [place] [address] | | + + + + + Care Team Providers + +------+ + | Care Industrial Nurse Name | Role | Phone | [...] | | , L[address] | [place] [address] | [place], [place] | | | | | [place] | Phone: | [address] | | | | | OFFICE/OUTPT | [phone] | Phone: | | | | | | Fax: | [phone] | | | | | VISIT,EST,LE | [phone] | Fax: | | | | | VL III 1 | | [phone] | | | | | consult, 3 [...] | 2007 | Visit | Medical at [facility] 16 | MD [address] | Pyoderma, | | | | Floor [address] | [place], [place] | Unspecified | | | | Ave Mailcode: [facility] | [address] | | | | | [facility] | [phone] | | | | | and Healing, | | | | | | Building | | | | | | Floor [place], [place] | | | | | | [address] | | | | | | [phone] | | | +--------+---------+ + + + [...] Notes Zayda Ordaz - 02/28/2008 10:18 PM CHINOI personally interviewed and examined the patient and discussed the plan with the patient. I have reviewed and edited the resident note to re flect my findings and assessment and agree with the documentation. Zayda Ordaz M.D. Privacy Attorney of Dermatology. Sandy Durbin, Azucena - 008 [...] [place] MD Resident PGY-2, Department of Dermatology Formerly [facility] [place] documented in this encoun ter Plan of [...] Lab) | | | | | | [facility] | | | | | | [address] | | | | [address] | | | | | | [place], [place] | | | | | | [id number]: Test | | | | | | performed at [place] | | | | | | [facility] | | | | | | Laboratory. | | | | + + + + + + + + | Specimen | + + | Leg - Left | + + + + + + + | Performing | Address | City/State/Zipcode | Phone Number | | Organization | | | | + + + + + | [facility] | [address] | [place] [address] | | | LAB-MICRO | | | | + + + + + documented in this encounter Visit Diagnoses + + | Diagnosis | + + | Ulcer - Primary Chronic ulcer of unspecified site | + + | Pyoderma, unspecified | + + documented in this encounter"
--- OUTSIDE RECORDS SUMMARY | ~2019-05-03 | XMS | Encounter Summary ---
Demographics + + + | Address | [address] | | | [place] [address] | + + + | Home Phone [...] | | | | | [place] [address] | | + + + + + | Robson Min | ECON | Unknown | | + + + + + | Isabella Whitehead | ECON | Unknown | | + + + + + Care Team Providers + +------+ + | Care Category Specialist Name | Role | Phone | [...] | | | Pulmonology | (chronic | [address] | [address] | | | | | obstructive | [address] | [place], | | | | | pulmonary | [place] | [place] [address] | | | | | disease) | [address] | Phone: | | | | | ([facility]) | [place] | [phone] | | | | | Procedures | [address] | Fax: | | | | | F/U APPEver CRUZ | Phone: | [phone] | | | | | DARRICK GRANDE | [phone] | | | | | | 11/19/17 | | | +--------+--------+ + + + + Encounter Details +--------+---------+ + + + | Date | Type | Department | Care Team | Description | +--------+---------+ + + + | 11/19/ | Office | [facility] [place] | Navdeep Grande, | Hypoxemia (Primary | | 2018 | Visit | PULMONARY [address] | MD [address] | Dx); Tobacco use | | | | [place], | [place], [place] | disorder; COPD, mild | | | | [place] [address] | [address] | ([facility]); Alveolar | | | | [phone] | | hypoventilation | +--------+---------+ + + [...] instructions provided by your healthcare provider or incrediblue. Check the oxygen supply level on the [...] if you have one. Date Last Reviewed: 08/18/201519993060-6779 The [employer]. [address] [place] [address], [place] [address]. All righ ts reserved. This information is [...] 50,000 Units by mouth Once a w ione., Disp: , Rfl: fluticasone-salmeterol (ADVAIR DISKUS) 250-50 [...] patient. The Chest CT(s) was performed at [facility]. No evidence of pulmonary emboli. A smal [...] MICHELLE | | | | | | [address] | | | | | | | | +--------+---------+ + + + | 07/26/ | Office | Pulmonology | Navdeep Grande, | | | 2019 | Visit | | [address] | | | | | | [place] | | | | | | [id number] | | | | | | | [...]
--- OUTSIDE RECORDS SUMMARY | ~2019-05-03 | XMS | Encounter Summary ---
Demographics + + + | Address | [address] | | | [place] [address] | + + + | Home Phone [...] | | | | | [place] [address] | | + + + + + | Robson Min | ECON | Unknown | | + + + + + | Isabella Whitehead | ECON | Unknown | | + + + + + Care Team Providers + +------+ + | Care Applications Project Manager Name | Role | Phone | [...] | | | Pulmonology | airway | [address] | [address] | | | | | obstruction, | [address] | [place], | | | | | not | [place] | [place] [address] | | | | | elsewhere | [address] | Phone: | | | | | classified | [place] | [phone] | | | | | Procedures | [address] | Fax: | | | | | [place] OFFICE | Phone: | [phone] | | | | | OUTPATIENT | [phone] | | | | | | VISIT 25 | | | | | | | MINUTES | | | +--------+--------+ + + + + Encounter Details +--------+---------+ + + + | Date | Type | Department | Care Team | Description | +--------+---------+ + + + | 04/24/ | Office | [facility] | Navdeep Grande, | Other nonspecific | | 2015 | Visit | PULMONARY [address] | MD [address] | abnormal finding of | | | | [place], | [place] | lung field (Primary | | | | [place] [address] | [address] | Dx); COPD, mild | | | | [phone] | | ([facility]); Chronic | | | | | | [...] not start to improve within 24 hours 0309-4579 The [employer]. [address] [place] [address], [place] [address]. All righ ts reserved. This information is [...] 4 times daily., Disp: , Rfl: ; vrzsfaibaw-iwjiyfo-ioddlsqh (BUTALBITA L COMPOUND/ASA) per tablet, One tablet [...] | | | | | [place] | | | | | | [address] | | | | | | | [...]
--- OUTSIDE RECORDS SUMMARY | ~2019-05-03 | XMS | Encounter Summary ---
Demographics + + + | Address | [address] | | | [place] [address] | + + + | Home Phone [...] | | | | | [place] [address] | | + + + + + Care Team Providers + +------+ + | Care Premix Concrete Batcher Name | Role | Phone | + +------+ + PCP | Unavailable | + +------+ + Encounter Details +--------+ + + + + | Date | Type | Department | Care Team | Description | +--------+ + + + + | 10/30/ | Respiratory | | Other, Faculty | | | 2006 | Therapy | | [phone] | | +--------+ + + + + [...] [facility] | [address] | [place], [place] | | | DIAGNOSTICS - | [address] | [address] | | | PULMONARY FUNCTION | | | | + + + + + documented in this encounter Visit Diagnoses Not on filedocumented in this encounter"
--- OUTSIDE RECORDS SUMMARY | ~2019-05-03 | XMS | Encounter Summary ---
Demographics + + + | Address | [address] | | | [place] [address] | + + + | Home Phone [...] | | | | | [place] [address] | | + + + + + | Robson Min | ECON | Unknown | | + + + + + | Isabella Whitehead | ECON | Unknown | | + + + + + Care Team Providers + +------+ + | Care Campus Aide Name | Role | Phone | [...] [place] | hypoventilation; | | | | [place], | | Hypoxemia | | | | [place] [address] | | | | | | [phone] | | | +--------+ + + + [...] MICHELLE | | | | | | [address] | | | | | | | | +--------+---------+ + + + | 07/26/ | Office | Pulmonology | Navdeep Grande, | | | 2019 | Visit | | [address] | | | | | | [place] | | | | | | [address] | | | | | | | | +--------+---------+ + + + documented as of this encounter Visit Diagnoses + + | Diagnosis | + + | Alveolar hypoventilation Other dyspnea and respiratory abnormality | + + | Hypoxemia | + + documented in this encounter"
--- OUTSIDE RECORDS SUMMARY | ~2019-05-03 | XMS | Encounter Summary ---
Demographics + + + | Address | [address] | | | [place] [address] | + + + | Home Phone | | + + + | Preferred Language | Unknown | + + + | Marital Status | Single | + + + | Voodoo Affiliation | Unknown | + + + | Race | Unknown | + + + | Ethnic Group | Unknown | + + + Author + + + | Author | [facility] | | | and [place] | + + + | Organization | [facility] | | [...] | | | | | [place] [address] | | + + + + + | Robson Min | ECON | Unknown | | + + + + + | Isabella Whitehead | ECON | Unknown | | + + + + + Care Team Providers + +------+ + | Care Cutting Table Operator First Name | Role | Phone | + +------+ + | Bart Ba DO | PCP | | + +------+ + Encounter Details +--------+ + + + + | Date | Type | Department | Care Team | Description | +--------+ + + + + | 11/19/ | Hospital | [facility] | Navdeep Grande, | COPD, mild (HCC) | | 2018 | Encounter | MED CTR PULMONARY | MD [address] | | | | | FUNCTION [address] | [place], [place] | | | | | [place], | [address] | | | | | [place] [address] | | | | | | [phone] | | | +--------+ + + + [...] MICHELLE | | | | | | [address] | | | | | | | | +--------+---------+ + + + | 07/26/ | Office | Pulmonology | Navdeep Grande, | | | 2019 | Visit | | MD Cely GORE | | | | | | [place] | | | | | | [address] | | | | | | | [...] | signed by: Navdeep Grande MD 11/19/2017 12:24[facility] | [facility] | | |physiology. Lung volume testing [...] Navdeep Grande MD 11/19/2017 12:24 | | |[facility] | | + + + documented in this encounter Visit Diagnoses + + | Diagnosis | + + | COPD, mild (HCC) Chronic airway obstruction, not elsewhere classified | + + documented in this encounter"
--- OUTSIDE RECORDS SUMMARY | ~2019-05-03 | XMS | Encounter Summary ---
Demographics + + + | Address | [address] | | | [place] [address] | + + + | Home Phone [...] | | | | | [place] [address] | | + + + + + [...] | | 2006 | Therapy | | [phone] | | +--------+ + + + + [...] [place], | | | | | | PHYSIATRIST | | | | + + + [...] [facility] | [address] | [place], [place] | | | DIAGNOSTICS - | [address] | [address] | | | PULMONARY FUNCTION | | | | + + + + + documented in this encounter Visit Diagnoses Not on filedocumented in this encounter"
--- OUTSIDE RECORDS SUMMARY | ~2019-05-03 | XMS | Encounter Summary ---
Demographics + + + | Address | [address] | | | [place] [address] | + + + | Home Phone [...] | | | | | [place] [address] | | + + + + + | Robson Min | ECON | Unknown | | + + + + + | Isabella Whitehead | ECON | Unknown | | + + + + + Care Team Providers + +------+ + | Care Therapeutic Consultant Name | Role | Phone | [...] | (Primary Dx) | | | | [place], | | | | | | [place] [address] | | | | | | [phone] | | | +--------+ + + + [...] [place]HELLE | | | | | | [address] | | | | | | | | +--------+---------+ + + + | 07/26/ | Office | Pulmonology | Navdeep Grande, | | | 2019 | Visit | | [address] | | | | | | [place] | | | | | | [address] | | | | | | | | +--------+---------+ + + + documented as of this encounter Results XR Chest PA and Lateral (04/04/2012 12:25 PM PST) + + | Specimen | + + | | + + + + + | Narrative | Performed At | + + + | [facility] | [place] | | Department [address] | [facility] | | [ rep [phone]] [ rep [facility] | | [facility]] Signed | - IMAGING | | | | | Patient Name: CARLINE MIN Physician: | | | RODRI : 1970 Age: 41 Sex: F Unit #: [id number] | | | Exam Date: 04/04/12 Location: [facility] | | | Report #: [id number] Page: | | | %(RAD)RES..mtdd.print.filter("pg") of %(RAD) | | | RES..mtdd.print.filter("tpg") | | | | | | Accession Number: [id number] | | | CHEST X-RAY, 04/04/2012 CLINICAL [...] | | | Transcribed Date/Time: 04/04/2012 15:34 Pig Sticker: | | | <<Signature on File>> | | | Magdy | | | MD Shaun04/05/12 0055 <Electronically signed by Magdy Dunn MD> | | | Magdy Dunn MD 04/04/12 1225 Pig Sticker: Webmedx | | | [id number]/17/12 1534 Navdeep Grande MD | | | | | + + + + + + + + | Performing | Address | City/State/Zipcode | Phone Number | | Organization | | | | + + + + + | [facility] | [address] | [place] | [phone] | | [facility] | | [address] | | | - IMAGING | | | | + + + + + documented in this encounter Visit Diagnoses + + | Diagnosis | + + | Abnormal chest CT - Primary Nonspecific (abnormal) findings on radiological and other | | examination of other intrathoracic organs | + + documented in this encounter
--- OUTSIDE RECORDS SUMMARY | ~2019-05-03 | XMS | Encounter Summary ---
Demographics + + + | Address | [address] | | | [place] [address] | + + + | Home Phone [...] | | | | | [place] [address] | | + + + + + | Robson Min | ECON | Unknown | | + + + + + | Isabella Whitehead | ECON | Unknown | | + + + + + Care Team Providers + +------+ + | Care Conciliation Court Judge Name | Role | Phone | + [...] [address] | obstructive | | | | [place], | [place], [place] | pulmonary disease) | | | | [place] [address] | [address] | ([facility]) (Primary Dx) | | | | [phone] | | | +--------+---------+ + + + [...] October. The patient was apparently hospitalized at [facility] in [facility] in March 2013 for pneumonia. Therapy consisted of antibiotics and supplemental oxygen. The patient was discharged home on oxygen at 1 L per minute. She is subsequently been told by Dr. Ba wear supplemental oxygen at night while she sleeps. The patient was placed on Ad vair at the [facility]. Kait has questions regarding whether she still [...] Date Wrist pain Diabetes mellitus, type 2 ([facility]) Vitamin D deficiency Hypercholesterolemia Hypothyroidism Panic anxiety syndrome IBS (irritable bowel syndrome) Restless leg syndrome Urinary hesitancy Lumbago Nocturia Pyoderma gangreosum-LE Bipolar 1 disorder ([facility]) Hypertension Lymphedema Nausea and vomiting Reflux esophagitis GI bleeding Empyema lung ([facility]) 2005 right Knee pain CHRONIC TENSION [...] 4 times daily., Disp: , Rfl: ; brgwnozxeo-jdiqfoq-jhpxuxjk (BUTALBITA L COMPOUND/ASA) per tablet, One tablet [...] MICHELLE | | | | | | [address] | | | | | | | | +--------+---------+ + + + | 07/26/ | Office | Pulmonology | Navdeep Grande, | | | 2019 | Visit | | MD Cely GORE | | | | | | [place] | | | | | | [address] | | | | | | | [...] PFT PULMONARY FUNCTION TESTING ORDERS Full PFT ([place] w/BD, lung volumes, diffusion)?: Yes; Rest and [...] MD 08/25/2013 15:49 [facility] | | | [facility] | | + + + [...] | | Navdeep Grande MD 08/25/2013 15:49[facility] | |IMPRESSION: Spirometry is consistent with normal physiology. Lung volume testing is consist ent with normal physiology. Diffusion capacity is mildly reduced and was not corrected for m easured hemoglobin. | | | |No prior pulmonary function tests available for comparison | | | |Test performed: 08/25/13 | |Electronically signed by: Navdeep Grande MD 08/25/2013 15:49 | |[facility] | + + documented in this encounter Visit Diagnoses + + | Diagnosis | + + | COPD (chronic obstructive pulmonary disease) (HCC) - Primary Chronic airway | | obstruction, not elsewhere classified | + + documented in this encounter
--- OUTSIDE RECORDS SUMMARY | ~2019-05-03 | XMS | Encounter Summary ---
Demographics + + + | Address | [address] | | | [place] [address] | + + + | Home Phone [...] | | | | | [place] [address] | | + + + + + | Robson Min | ECON | Unknown | | + + + + + | Isabella Whitehead | ECON | Unknown | | + + + + + Care Team Providers + +------+ + | Care Oil Plant Operator Name | Role | Phone [...] RN | hypoventilation | | | | [place], | | | | | | [place] [address] | | | | | | [phone] | | | +--------+ + + + [...] MICHELLE | | | | | | [address] | | | | | | | | +--------+---------+ + + + | 07/26/ | Office | Pulmonology | Navdeep Grande, | | | 2019 | Visit | | [address] | | | | | | [place] | | | | | | [address] | | | | | | | | +--------+---------+ + + + documented as of this encounter Visit Diagnoses + + | Diagnosis | + + | Alveolar hypoventilation Other dyspnea and respiratory abnormality | + + documented in this encounter"
--- OUTSIDE RECORDS SUMMARY | ~2019-05-03 | XMS | Encounter Summary ---
Demographics + + + | Address | [address] | | | [place] [address] | + + + | Home Phone [...] | | | | | [place] [address] | | + + + + + | Robson Min | ECON | Unknown | | + + + + + | Isabella Whitehead | ECON | Unknown | | + + + + + Care Team Providers + +------+ + | Care Enameler Name | Role | Phone | + [...] | obstructive | | | | [place], | [place], [place] | pulmonary disease) | | | | [place] [address] | [address] | ([facility]) (Primary Dx) | | | | [phone] | | | +--------+---------+ + + + [...] apparently hospitalized at [facility] in [facility] in March 2013 for pneumonia. Therapy consisted of antibiotics and supplemental oxygen. The patient was discharged home on oxygen at 1 L per minute. She is subsequently been told by Dr. Ba wear supplemental oxygen at night while she sleeps. The patient was placed on Ad vair at the [facility]. Kait has questions regarding whether she still [...] pain Diabetes mellitus, type 2 ([facility]) Vitamin D deficiency Hypercholesterolemia Hypothyroidism Panic anxiety syndrome IBS (irritable bowel syndrome) Restless leg syndrome Urinary hesitancy Lumbago Nocturia Pyoderma gangreosum-LE Bipolar 1 disorder ([facility]) Hypertension Lymphedema Nausea and vomiting Reflux esophagitis GI bleeding Empyema lung ([facility]) 2005 right Knee pain CHRONIC TENSION [...] 4 times daily., Disp: , Rfl: ; pzkhbzmwvh-hvghhjf-njthgxdt (BUTALBITA L COMPOUND/ASA) per tablet, One tablet [...] [place]HEL[place] | | | | | | [address] | | | | | | | | +--------+---------+ + + + | 07/26/ | Office | Pulmonology | Navdeep Grande, | | | 2019 | Visit | | MD Cely GORE | | | | | | [place] | | | | | | [address] | | | | | | | [...] PFT PULMONARY FUNCTION TESTING ORDERS Full PFT ([place] w/BD, lung volumes, diffusion)?: Yes; Rest and [...] MD 08/25/2013 15:49 [facility] | | | [facility] | | + + + + [...] | | Navdeep Grande MD 08/25/2013 15:49[facility] | |IMPRESSION: Spirometry is consistent with normal physiology. Lung volume testing is consist ent with normal physiology. Diffusion capacity is mildly reduced and was not corrected for m easured hemoglobin. | | | |No prior pulmonary function tests available for comparison | | | |Test performed: 08/25/13 | |Electronically signed by: Navdeep Grande MD 08/25/2013 15:49 | |[facility] | + + documented in this encounter Visit Diagnoses + + | Diagnosis | + + | COPD (chronic obstructive pulmonary disease) (HCC) - Primary Chronic airway | | obstruction, not elsewhere classified | + + documented in this encounter
--- OUTSIDE RECORDS SUMMARY | ~2019-05-03 | XMS | Encounter Summary ---
Demographics + + + | Address | [address] | | | [place] [address] | + + + | Home Phone [...] + + + | Author | [facility] | | | and [place] | + + + | Organization | [facility] | | | and [...] | | | | | [place] [address] | | + + + + + | Robson Min | ECON | Unknown | | + + + + + | Isabella Whitehead | ECON | Unknown | | + + + + + Care Team Providers + +------+ + | Care Pbx Operator Name | Role | Phone | [...] [address] | | | | | [place], | [place], [place] | | | | | [place] [address] | [address] | | | | | [phone] | | | +--------+ + + + [...] MICHELLE | | | | | | [address] | | | | | | | | +--------+---------+ + + + | 07/26/ | Office | Pulmonology | Navdeep Grande, | | | 2019 | Visit | | MD Cely GORE | | | | | | [place] | | | | | | [address] | | | | | | | | +--------+---------+ + + + documented as of this encounter Visit Diagnoses Not on filedocumented in this encounter"
--- OUTSIDE RECORDS SUMMARY | ~2019-05-03 | XMS | Encounter Summary ---
Demographics + + + | Address | [address] | | | [place] [address] | + + + | Home Phone [...] + + + | Author | [facility] | | | and [place] | + + + | Organization | [facility] | | [...] | | | | | [place] [address] | | + + + + + | Robson Min | ECON | Unknown | | + + + + + | Isabella Whitehead | ECON | Unknown | | + + + + + Care Team Providers + +------+ + | Care Dancer Or Choreographer Name | Role | Phone | + [...] | | | | | [place] | [address] | [address] | | | | | is without | [address] | [place], | | | | | acute | [place] | [place] [address] | | | | | exacerbation | [address] | Phone: | | | | | ([facility]) | [place] | [phone] | | | | | Procedures | [address] | Fax: | | | | | LA OFFICE | Phone: | [phone] | | | | | OUTPATIENT | [phone] | | | | | | NEW 45 | | | | | | | MINUTES | | | +--------+--------+ + + + + Encounter Details +--------+---------+ + + + | Date | Type | Department | Care Team | Description | +--------+---------+ + + + | 10/18/ | Office | [facility] | Navdeep Grande, | Abnormal chest x-ray | | 2012 | Visit | PULMONARY [address] | MD [address] | (Primary Dx); | | | | [place], | [place], [place] | Chronic bronchitis | | | | [place] [address] | [phone] | ([facility]) | | | | [phone] | | | +--------+---------+ + + + [...] the original. Pulmonary Follow Up 10/18/2012 HPI Kiat Min is a 42 y.o. female patient [...] 4 times daily., Disp: , Rfl: ; jgxvbfbkzf-esactta-sfeqindk (BUTALBITA L COMPOUND/ASA) per tablet, One tablet [...] x-ray in 12 months time. CC: Bart Bell Mejia documented in this [...] 2020 | Visit | | [address] | | | | | | [place] | | | | | | [address] | | | | | | | [...]
--- OUTSIDE RECORDS SUMMARY | ~2019-05-03 | XMS | Encounter Summary ---
Demographics + + + | Address | [address] | | | [place] [address] | + + + | Home Phone [...] | | | | | [place] [address] | | + + + + + Care Team Providers + +------+ + | Care Distiller Name | Role | Phone | + [...] as of this encounter Progress Notes Interface, Residential [place] In - 05/02/2006 2:20 PM [facility] [...] the family. SOCIAL HISTORY: She lives in [place], [place] with her son and boyfriend. She [...] Sulindac and Prednisone for the moment. The half-way goal will be to wean the Prednisone [...] M.D. Resident, Internal Medicine Deyvi Lainez M.D. Screen Maker, Rheumatology ES:aster documented in this encounter Plan of Treatment Not on filedocumented as of this encounter Visit Diagnoses Not on filedocumented in this encounter
--- OUTSIDE RECORDS SUMMARY | ~2019-05-03 | XMS | Encounter Summary ---
Demographics + + + | Address | [address] | | | [place] [address] | + + + | Home Phone [...] Author | [facility] | | | [...] | | | | | [place] [address] | | + + + + + | Robson Min | ECON | Unknown | | + + + + + | Isabella Whitehead | ECON | Unknown | | + + + + + Care Team Providers + +------+ + | Care Locum Tenens Hospitalist Name | Role | Phone | + [...] | | | Pulmonology | obstructive | [address] | [address] | | | | | pulmonary | [address] | [place], | | | | | disease, | [place] | [place] [address] | | | | | unspecified | [address] | Phone: | | | | | ([facility]) | [place] | [phone] | | | | | Procedures | [address] | Fax: | | | | | F/U | Phone: | [phone] | | | | | | [phone] | | +--------+--------+ + + + + Encounter Details +--------+---------+ + + + | Date | Type | Department | Care Team | Description | +--------+---------+ + + + | 05/26/ | Office | [facility] | Navdeep Grande, | COPD, mild (HCC) | | 2017 | Visit | PULMONARY [address] | MD [address] | (Primary Dx); | | | | [place], | [place], [place] | Alveolar | | | | [place] [address] | [address] | hypoventilation | | | | [phone] | | | +--------+---------+ + + + [...] + | Blood Pressure | 110/72 | 05/26/2016 10:34 AM | | | | | PST | | + + + + + | Pulse | 92 | 05/26/2016 10:34 AM | | | | | PST | | + + + + + | Temperature | - | - | | + + + + + | Respiratory Rate | - | - | | + + + + + | Oxygen Saturation | 94% | 05/26/2016 10:34 AM | | | | | PST | | + + + + + | Inhaled Oxygen | - | - | | | Concentration | | | | + + + + + | Weight | 115.4 kg (254 lb 8 | 05/26/2016 10:34 AM | | | | oz) | PST | | + + + + + | Height | 167.6 cm (5' 6") | 05/26/2016 10:34 AM | | | | | PST | | + + + + + | Body Mass Index | 41.08 | 05/26/2016 10:34 AM | | | | | PST | | + + + + + documented in this encounter Patient Instructions Patient Instructions Navdeep Grande MD - 05/26/2016 11:19 AM PST Kicking the Smoking Habit If you smoke, quitting is one of the best changes you can make for your heart and your over all health. Your risk of heart attack goes down within one day of putting out that last ciga rette. As you go longer without smoking, your risk goes down even more. Quitting isn t eas y, but millions of people have done it. You can, too. It s never too late to quit. Getting started Boost your chances of success by deciding on your quit plan. Your health care provide r and cardiac rehab team can help you develop this plan. Even if you ve already quit, it s easy to slip back into smoking. Your plan can help you avoid and recover from relapse. In any case, start by setting a date to quit within a month, and do it. [place] to your quit plan Talk to your healthcare provider about prescription medicines and nicotine replacement p roducts that help stop the urge to smoke. Join a support group or quit smoking program. Talking with others about the challenges o f quitting can help you get through them. Ask other smokers in your household to quit with you. Look for the cues in your life that you associate with smoking and avoid them. Track your triggers What gives you that N-kxgr-p-cigarette feeling? List all the situations that make you want a cigarette. Then think of other ways to deal with these situations. Here are some exa mples: Situation How I'll handle it Finishing a meal Get up from the table and take a walk Having an argument Find a quiet place and breathe deeply Feeling lonely or bored Call a friend to talk Tips for quitting successfully List the benefits of quitting such as reducing heart risks and saving money. Keep this l ist and review it whenever you feel like smoking. Get support. Let your friends know you may call them to chat when you have an urge to sm domo. If you ve tried to quit before without success, this time avoid the triggers that may cause the relapse. Make the most of slip-ups. Try to learn from them, and then get back on track. Be accountable to your friends and your calendar so that you stay on track. For family and friends Be supportive and patient. Quitting smoking can be difficult and stressful. If you smoke, now s a great time to quit. Even if you don t quit, never smoke around your loved one. Secondhand smoke is dangerous to his or her heart. The best goals are accomplished in teams. Remember that when your loved one states he or she wants to stop smoking. Date Last Reviewed: 10/18/201519998889-8506 [employer]. [address] [place] [address], [place] [address]. All righ ts reserved. This information is not intended as a substitute for professional medical care. Always follow your healthcare professional's instructions. documented in this encounter Progress Notes Navdeep Grande MD - 05/26/2016 11:12 AM PSTFormatting of this note might be different f rom the original. Pulmonary Follow Up 05/26/2016 HPI Kait Min is a 45 y.o. female patient of Bart Ba, here today for follow up o f Gold Stage I COPD. The last pulmonary clinic visit was on 05/23/15. Since their last appointment they feel like their breathing issues have been stable. They have not had any acute pulmonary illnesses. The patient has not required a prednisone taper since our last clinic appointment. Likewise Kait Min has not required antib iotics for a COPD exacerbation since our last clinic appointment. They are currently on a daily regimen of Ventolin for their COPD. They do feel like this m edication regimen is/are controlling their symptoms. Currently she is using their short act ing bronchodilator, Ventolin, 1-2 times a month. Currently the patient is able to walk couple miles at their own pace on level ground before developing dyspnea. They are not exercising regularly due to weather. Their typical exercis e consists of walking and swimming. They are not enrolled in cardiac/pulmonary rehabilitati on. They have not completed pulmonary rehabilitation in the past. The patient does not cough chronically and does not [...] Pneumovax and Prevnar 13. Ms. Min is smoking half a pack of cigarettes a day with plans to quit smoking later this month. Past Medical History Past Medical History Diagnosis Date Wrist pain Diabetes mellitus, type 2 ([facility]) Vitamin D deficiency Hypercholesterolemia Hypothyroidism Panic anxiety syndrome IBS (irritable bowel syndrome) Restless leg syndrome Urinary hesitancy Lumbago Nocturia Pyoderma gangreosum-LE Bipolar 1 disorder ([facility]) Hypertension Lymphedema Nausea and vomiting Reflux esophagitis GI bleeding Empyema lung ([facility]) 2005 right Knee pain CHRONIC TENSION HEADACHE Classical migraine without mention of intractable migraine Abnormal chest CT Most likely postoperative decortication changes Obesity Pneumonia Acid reflux disease Social History: She reports that she has been smoking Cigarettes. She started smoking about 32 years ago. She has a 6 pack-year smoking history. She has never used smokeless tobacco. She reports mary t she drinks alcohol. She reports that she does not use illicit drugs. Allergies: Allergies Allergen Reactions Azithromycin Lamotrigine Medications: Current outpatient prescriptions: aspirin 81 MG tablet, Take 81 mg by mouth Daily., Disp: , Rfl: azaTHIOprine (AZASAN) 75 MG TABS, Take 75 mg by mouth 2 times daily., Disp: , Rfl: busPIRone (BUSPAR) 5 mg tablet, Take 5 mg by mouth 2 times daily., Disp: , Rfl: zjmcxcgchg-zuabbhb-blreqxmq (BUTALBITAL COMPOUND/ASA) per tablet, One tablet by mouth every 6 hours as needed for migraine, Disp: , Rfl: CHANTIX CONTINUING MONTH JAYA 1 MG tablet, Take 1 mg by mouth 2 times daily., Disp: , R fl: cloNIDine (CATAPRES) 0.3 mg/24 hr, Place 1 patch onto the skin Once a week., Disp: , R fl: dicyclomine (BENTYL) 10 mg capsule, Take 1 capsule by mouth every 6 hours as needed., Disp: 150 capsule, Rfl: 3 ergocalciferol (VITAMIN D-2) 50,000 units capsule, Take 50,000 Units by mouth Once a w tanana., Disp: , Rfl: fluticasone-salmeterol (ADVAIR HFA) 45-21 [...] 2 times daily., Di sp: , Rfl: SUMAtriptan (IMITREX) 100 mg tablet, 1/2-1 tablet by mouth daily as needed migraine, D isp: , Rfl: tiZANidine (ZANAFLEX) 4 mg tablet, [...] INFLUENZA PF QUAD(PED/ADOL/ADULT),PSKT or VIAL 02/15/2015, 02/17/2016 PNEUMOCOCCAL CONJUGATE 13-VALENT (PCV13) 04/24/2014 PNEUMOCOCCAL POLYSACCHARIDE [...] Denies urticaria and allergic rash. Objective BP 110/72 mmHg | Pulse 92 | Ht 1.676 m (5' 6") | Wt 115.44 kg (254 lb 8 oz) | BMI 41.10 kg/ m2 | SpO2 94% | ? No Appearance: Alert, cooperative, no [...] Neurologic: Gait normal. No apparent weakness. Data: None Assessment 1. COPD Gold stage I. At the time of the patient's last clinic appointment she was usin g Advair and as needed Ventolin. Over last 6 months Ms. Min has completely discontinued A dvair without a subsequent change in her shortness of breath. The patient continues to use tobacco currently equating to half a pack of cigarettes a day. She plans to stop smoking later this month. Ms. Min is up-to-date with respect to her seasonal influenza, Prevnar and Pneumovax. 2. Alveolar hypoventilation currently treated with supplemental oxygen at 1 L/m at night while the patient sleeps. Plan 1. Continue with as needed albuterol. 2. Given the mild severity and lack of significant exacerbations over the last 12 months w e will change the frequency of pulmonary clinic follow-up to as needed. 3. Smoking cessation strongly encourage. 4. Seasonal influenza vaccination January 2017. CC: Bart Ba DO documented in this [...] [place] | | | | | | [address] | | | | | | | | +--------+---------+ + + + | 07/26/ | Office | Pulmonology | Navdeep Grande, | | | 2019 | Visit | | MD [address]ely [address] | | | | | | [place] | | | | | | [address] | | | | | | | | +--------+---------+ + + + documented as of this encounter Visit Diagnoses + + | Diagnosis | + + | COPD, mild (HCC) - Primary Chronic airway obstruction, not elsewhere classified | + + | Alveolar hypoventilation Other dyspnea and respiratory abnormality | + + documented in this encounter
--- OUTSIDE RECORDS SUMMARY | ~2019-05-03 | XMS | Encounter Summary ---
Demographics + + + | Address | [address] | | | [place] [address] | + + + | Home Phone | | + + + | Preferred Language | Unknown | + + + | Marital Status | Single | + + + | Taoist Affiliation | Unknown | + + + | Race | Unknown | + + + | Ethnic Group | Unknown | + + + Author + + + | Author | [facility] | | | and [place] | + + + | Organization | [facility] | | | [...] | | | | | [place] [address] | | + + + + + | Robson Min | ECON | Unknown | | + + + + + | Isabella Whitehead | ECON | Unknown | | + + + + + Care Team Providers + +------+ + | Care Engineering Job Titles Name | Role | Phone [...] | | apnea, | [address] | [place] | | | | | unspecified | [address] | [place], | | | | | type | [place], | [place] [address] | | | | | Alveolar | [place] [address] | Phone: | | | | | hypoventilat | Phone: | [phone] | | | | | ion | [phone] | Fax: | | | | | Procedures | Fax: | [phone] | | | | | [place] [facility] | [phone] | | | | | | 6/>YRS [...] + + | 11/16/ | Telephone | [facility] | Navdeep Grande, | Results (nocturnal | | 2018 | | PULMONARY [address] | MD [address] | oximetry) | | | | [place], | [place] | | | | | [place] [address] | [address] | | | | | [phone] | | | +--------+ + + + [...] [place] | | | | | | [id number] | | | | | | | | +--------+---------+ + + + | 07/26/ | Office | Pulmonology | Navdeep Grande, | | | 2020 | Visit | | MD [address]ely [address]ORE | | | | | | [place] | | | | | | [address] | | | | | | | | +--------+---------+ + + + + + +--------+ + + | Name | Type | Priori | Associated Diagnoses | Order Schedule | | | | ty | | | + + +--------+ + + | * [facility] - | Outpatient | Routin [...]
--- OUTSIDE RECORDS SUMMARY | ~2019-05-03 | XMS | Encounter Summary ---
Demographics + + + | Address | [address] | | | [place] [address] | + + + | Home Phone [...] | | | | | [place] [address] | | + + + + + | Robson Min | ECON | Unknown | | + + + + + | Isabella Whitehead | ECON | Unknown | | + + + + + Care Team Providers + +------+ + | Care Nurse Liaison Name | Role | Phone | [...] Results, Imaging | | 2018 | | [facility] | [address] | | | | | CLINIC [address] | [place] | | | | | [address] [place], | [address] | | | | | [place] [address] | | | | | | [phone] | | | +--------+ + + + [...] [place] | | | | | | [address] | | | | | | | | +--------+---------+ + + + | 07/26/ | Office | Pulmonology | Navdeep Grande, | | | 2020 | Visit | | [address] | | | | | | [place] | | | | | | [address] | | | | | | | | +--------+---------+ + + + documented as of this encounter Visit Diagnoses Not on filedocumented in this encounter"
--- OUTSIDE RECORDS SUMMARY | ~2019-05-03 | XMS | Encounter Summary ---
Demographics + + + | Address | [address] | | | [place] [address] | + + + | Home Phone [...] | | | | | [place] [address] | | + + + + + | Robson Min | ECON | Unknown | | + + + + + | Isabella Whitehead | ECON | Unknown | | + + + + + Care Team Providers + +------+ + | Care Concession Attendant Name | Role | Phone | [...] (Call Back) | | 2019 | | [facility] | [facility] [address] | | | | | CLIN[address] | [address] [facility], | | | | | [address] [place], | [place] [address] | | | | | [place] [address] | [phone] | | | | | [phone] | | | +--------+ + + + [...] [place] | | | | | | [id number] | | | | | | | | +--------+---------+ + + + | 07/26/ | Office | Pulmonology | Navdeep Grande, | | | 2019 | Visit | | [address] | | | | | | [place] | | | | | | [address] | | | | | | | | +--------+---------+ + + + documented as of this encounter Visit Diagnoses Not on filedocumented in this encounter"
--- OUTSIDE RECORDS SUMMARY | ~2019-05-03 | XMS | Encounter Summary ---
Demographics + + + | Address | [address] | | | [place] [address] | + + + | Home Phone [...] | | | | | [place] [address] | | + + + + + | Robson Min | ECON | Unknown | | + + + + + | Isabella Whitehead | ECON | Unknown | | + + + + + Care Team Providers + +------+ + | Care Director Drug Name | Role | Phone | + [...] Zhou PEARSON | | | | | [phone] | [place] [address] | | +--------+ + + + + [...] [place] | | | | | | [address] | | | | | | | | +--------+---------+ + + + | 07/26/ | Office | Pulmonology | Navdeep Grande, | | | 2019 | Visit | | [address] | | | | | | [place] | | | | | | [address] | | | | | | | [...]
--- OUTSIDE RECORDS SUMMARY | ~2019-05-03 | XMS | Encounter Summary ---
Demographics + + + | Address | [address] | | | [place] [address] | + + + | Home Phone [...] | | | | | [place] [address] | | + + + + + | Robson Min | ECON | Unknown | | + + + + + | Isabella Whitehead | ECON | Unknown | | + + + + + Care Team Providers + +------+ + | Care Balloon Design Printer Name | Role | Phone | + [...] | | PULMONARY [address] | M, Acupressurist | | | | | [place], | | | | | | [place] [address] | | | | | | [phone] | | | +--------+ + + + [...] [place] | | | | | | [address] | | | | | | | | +--------+---------+ + + + | 07/26/ | Office | Pulmonology | Navdeep Grande, | | | 2019 | Visit | | MD [address] | | | | | | [place] | | | | | | [address] | | | | | | | | +--------+---------+ + + + documented as of this encounter Visit Diagnoses Not on filedocumented in this encounter"
--- OUTSIDE RECORDS SUMMARY | ~2019-05-03 | XMS | Encounter Summary ---
Demographics + + + | Address | [address] | | | [place] [address] | + + + | Home Phone [...] | | | | | [place] [address] | | + + + + + | Robson Min | ECON | Unknown | | + + + + + | Isabella Whitehead | ECON | Unknown | | + + + + + Care Team Providers + +------+ + | Care Stapler Machine Name | Role | Phone | + +------+ + | Bart Ba DO | PCP | | + +------+ + Encounter Details +--------+ + + + + | Date | Type | Department | Care Team | Description | +--------+ + + + + | 04/04/ | Hospital | [facility] | Navdeep Grande, | Abnormal chest CT | | 2011 - | Encounter | MED CTR XRAY [address] | MD [address] | | | | | [place] | [place], [place] | | | 04/06/ | | [place] [address] | [address] | | | 2011 | | [phone] | | | +--------+ + + + [...] | 0 | 10/08/19 | | | bmxyhrcoaq-qpgoywq-c | every 6 hours as | | [...] [place] | | | | | | [address] | | | | | | | | +--------+---------+ + + + | 07/26/ | Office | Pulmonology | Navdeep Grande, | | | 2019 | Visit | | [address] | | | | | | [place] | | | | | | [address] | | | | | | | [...] At | + + + | [facility] Diagnostic Imaging | [place] | | Department [address] [facility] | | [ rep [address]] [ rep [facility] | | [facility]] Signed | - IMAGING | | | | | Patient Name: CARLINE MIN Physician: | | | RODRI : 1970 Age: 41 Sex: F Unit #: [id number] | | | Exam Date: 04/04/12 Location: [facility] | | | Report #: [id number] Page: | | | %(RAD)RES..mtdd.print.filter("pg") of %(RAD) | | | RES..mtdd.print.filter("tpg") | | | | | | Accession Number: [id number] | | | CHEST X-RAY, 04/04/2012 CLINICAL [...] | | | Transcribed Date/Time: 04/04/2012 15:34 Special Procedure Tech: | | | <<Signature on File>> | | | Magdy | | | MD Shaun04/05/12 0055 <Electronically signed by Magdy Dunn MD> | | | Magdy Dunn MD 04/04/12 1225 Special Procedure Tech: [employer] | | | Tbqtaotmzbhvo87/17/12 1534 Navdeep Grande MD | | | | | + + + + + + + + | Performing | Address | City/State/Zipcode | Phone Number | | Organization | | | | + + + + + | [facility] | [address] | [place] | [phone] | | [facility] | | [address] | | | - IMAGING | | | | + + + + + documented in this encounter Visit Diagnoses + + | Diagnosis | + + | Abnormal chest CT Nonspecific (abnormal) findings on radiological and other | | examination of other intrathoracic organs | + + documented in this encounter
--- OUTSIDE RECORDS SUMMARY | ~2019-05-03 | XMS | Encounter Summary ---
Demographics + + + | Address | [address] | | | [place] [address] | + + + | Home Phone [...] | | | | | [place] [address] | | + + + + + | Robson Min | ECON | Unknown | | + + + + + | Isabella Whitehead | ECON | Unknown | | + + + + + Care Team Providers + +------+ + | Care Or Rn Name | Role | Phone | + [...] Zhou PEARSON | | | | | [phone] | [place] [address] | | +--------+ + + + + [...] [place] | | | | | | [address] | | | | | | | | +--------+---------+ + + + | 07/26/ | Office | Pulmonology | Navdeep Grande, | | | 2019 | Visit | | [address] | | | | | | [place] | | | | | | [address] | | | | | | | [...]
--- OUTSIDE RECORDS SUMMARY | ~2019-05-03 | XMS | Encounter Summary ---
Demographics + + + | Address | [address] | | | [place] [address] | + + + | Home Phone [...] | | | | | [place] [address] | | + + + + + Care Team Providers + +------+ + | Care Accordion Repairer Name | Role | Phone | + +------+ + PCP | Unavailable | + +------+ + Encounter Details +--------+ + + + + | Date | Type | Department | Care Team | Description | +--------+ + + + + | 10/31/ | Respiratory | | Other, Faculty | | | 2006 | Therapy | | [phone] | | +--------+ + + + + [...] | | | | | | Rick, EXHIBITION CARVER | | | | + + + [...] [facility] | [address] | [place], [place] | | | DIAGNOSTICS - | [address] | [address] | | | PULMONARY FUNCTION | | | | + + + + + documented in this encounter Visit Diagnoses Not on filedocumented in this encounter"
--- OUTSIDE RECORDS SUMMARY | ~2019-05-03 | XMS | Encounter Summary ---
Demographics + + + | Address | [address] [place] | | | [place] [address] | + + + | Home Phone [...] | | | | | [place] [address] | | + + + + + Care Team Providers + +------+ + | Care Filters Assembler Name | Role | Phone | [...] | | | | | Cathryn [place], | | | | | | [place] [address] | | | | | | [phone] | | | | | | | [...] | | + +---------+ + + | [facility] | | | | | RADIOLOGY | | | | + +---------+ + + documented in this encounter Visit Diagnoses Not on filedocumented in this encounter"
--- OUTSIDE RECORDS SUMMARY | ~2019-05-03 | XMS | Encounter Summary ---
Demographics + + + | Address | [address] | | | [place] [address] | + + + | Home Phone [...] | | | | | [place] [address] | | + + + + + | Robson Min | ECON | Unknown | | + + + + + | Isabella Whitehead | ECON | Unknown | | + + + + + Care Team Providers + +------+ + | Care Surgical Nurse Name | Role | Phone | [...] | Abnormal | MD Navdeep | [address] | | | | | chest CT | [address] | [place], | | | | | Procedures | [place] | [place] [address] | | | | | CT Chest wo | [place], | Phone: | | | | | [place] | [place] [address] | [phone] | | | | | | Phone: | Fax: | | | | | | [phone] | [phone] | | | | | | Fax: | | | | | | | [phone] | | +--------+--------+ + + + + [...] | Abnormal | MD Navdeep | [address] | | | | | chest CT | [address] | [place], | | | | | Procedures | [place] | [place] [address] | | | | | CT Chest wo | [place], | Phone: | | | | | [place] | [place] [address] | [phone] | | | | | | Phone: | Fax: | | | | | | [phone] | [phone] | | | | | | Fax: | | | | | | | [phone] | | +--------+--------+ + + + + Encounter Details +--------+ + + + + | Date | Type | Department | Care Team | Description | +--------+ + + + + | 04/24/ | Hospital | [facility] | Navdeep Grande, | Abnormal chest CT | | 2015 | Encounter | MED CTR CT [address] | MD [address] [place] | | | | | [address] [place], | [place], [place] | | | | | [place] [address] | [address] | | | | | [phone] | | | +--------+ + + + [...] | 0 | 10/08/19 | | | [id number] | every 6 hours as | | [...] [place] | | | | | | [address] | | | | | | | | +--------+---------+ + + + | 07/26/ | Office | Pulmonology | Navdeep Grande, | | | 2019 | Visit | | [address] | | | | | | [place] | | | | | | [id number] | | | | | | | [...] + | MISCELLANEOUS LAB | | | [phone] | + +---------+ + + | MISCELANIOUS LAB | | | [phone] | + +---------+ + + documented in this encounter Visit Diagnoses + + | Diagnosis | + + | Abnormal chest CT Nonspecific (abnormal) findings on radiological and other | | examination of other intrathoracic organs | + + documented in this encounter"
--- OUTSIDE RECORDS SUMMARY | ~2019-05-03 | XMS | Encounter Summary ---
Demographics + + + | Address | [address] | | | [place] [address] | + + + | Home Phone [...] + + + | Author | [facility] | + + + | Organization | [facility] | + + + | Address | Unknown | + + + | Phone | Unavailable | + + + Support + + + + + | Name | Relationship | Address | Phone | + + + + + | Scot Johnson | ECON | [address] | | | | | [place] [address] | | + + + + + Care Team Providers + +------+ + | Care Engineering Operations Leader Name | Role | Phone | [...] [address] | | | | | [place] | [place] | | | | | [address] | [address] | | | | | [phone] | [phone] | | | | | | | [...] + + | Performing | Address | City/State[facility] | Phone Number | | Organization | | | | + +---------+ + + | [facility] DEPARTMENT OF | | | | [...] | | + +---------+ + + | [facility] DEPARTMENT OF | | | | [...] + + + | [facility] | [address] | [place] [address] | | | PATHOLOGY | [address] | | | + + + + + | [facility] | [address] | [place] [address] | | | PATHOLOGY | [address] [...] DEPARTMENT OF | [address] | [place] [address] | | | PATHOLOGY | [address] | | | + + + + + | [facility] DEPARTMENT OF | [address] | [place] [address] | | | PATHOLOGY | [address] [...] | + + + + + | [facility] DEPARTMENT OF | [address] | [place] [address] | | | PATHOLOGY | [address] | | | + + + + + | [facility] DEPARTMENT OF | [facility] | [place] [address] | | | PATHOLOGY | [address] [...] DEPARTMENT OF | [address] | [place] [address] | | | PATHOLOGY | [address] | | | + + + + + | [facility] | [address] | [place] [address] | | | PATHOLOGY | [address] [...] + + | Performing | Address | City/State[facility] | Phone Number | | Organization | | | | + +---------+ + + | [facility] DEPARTMENT OF | | | | [...] | + + + + + | [facility] DEPARTMENT | [address] | [place] [address] | | | PATHOLOGY | [address] | | | + + + + + | [facility] | [facility] [facility] | [place] [address] | | | PATHOLOGY | [address] [...] | + + + + + | [facility] DEPARTMENT OF | [address] | [place] [address] | | | PATHOLOGY | [address] | | | + + + + + | [facility] DEPARTMENT OF | [address] | [place] [address] | | | PATHOLOGY | [address] [...] + + + | [facility] | [facility] | [place] [address] | | | PATHOLOGY | [address] | | | + + + + + | [facility] | [facility] [address] | [place] [address] | | | PATHOLOGY | [address] [...] + + + | [facility] | [address] | [place] [address] | | | PATHOLOGY | [address] | | | + + + + + | [facility] DEPARTMENT OF | [address] | [place] [address] | | | PATHOLOGY | [address] [...] + + + | [facility] | [address] | [place] [address] | | | PATHOLOGY | [address] | | | + + + + + | [facility] | [facility] | [place] [address] | | | PATHOLOGY | [address] [...] | + + + + + | [facility] DEPARTMENT OF | [address] [facility] [facility] | [place] [address] | | | PATHOLOGY | [address] | | | + + + + + | [facility] | [address] | [place] [address] | | | PATHOLOGY | [address] [...] DEPARTMENT OF | [address] | [place] [address] | | | PATHOLOGY | [address] | | | + + + + + | [facility] DEPARTMENT OF | [address] | [place] [address] | | | PATHOLOGY | [address] [...] DEPARTMENT OF | [address] | [place] [address] | | | PATHOLOGY | [address] | | | + + + + + | [facility] DEPARTMENT OF | [address] | [place] [address] | | | PATHOLOGY | [address] [...] DEPARTMENT OF | [address] | [place] [address] | | | PATHOLOGY | [address] | | | + + + + + | [facility] | [address] | [place] [address] | | | PATHOLOGY | [address] [...] | | + +---------+ + + | [facility] DEPARTMENT OF | | | | [...] + + + | [facility] | [address] | [place] [address] | | | PATHOLOGY | [address] | | | + + + + + | [facility] | [address] | [place] [address] | | | PATHOLOGY | [address] [...] OF | [address] | [place] [address] | | | PATHOLOGY | [address] | | | + + + + + | [facility] DEPARTMENT OF | [address] | [place] [address] | | | PATHOLOGY | [address] [...] | + + + + + | [facility] DEPARTMENT OF | [address] | [place] [address] | | | PATHOLOGY | [address] | | | + + + + + | [facility] DEPARTMENT OF | [address] | [place] [address] | | | PATHOLOGY | [address] [...] DEPARTMENT OF | [address] | [place] [address] | | | PATHOLOGY | [address] | | | + + + + + | [facility] DEPARTMENT | [address] | [place] [address] | | | PATHOLOGY | [address] | | | + + + + + MAGNESIUM, PLASMA (10/30/2005 7:14 AM PDT) + +-------+ + + + | Component | Value | Ref Range | Performed | Pathologist | | | | | At | Signature | + +-------+ + + + | MAGNESIUM,P | 2.1 | 1.8 - 2.5 mg/dL | [facility] | | | LASMA | | [...] | + + + + + | [facility] DEPARTMENT OF | [address] | [place] [address] | | | PATHOLOGY | [address] | | | + + + + + | [facility] DEPARTMENT OF | [address] | [place] [address] | | | PATHOLOGY | [address] [...] OF | [address] | [place] [address] | | | PATHOLOGY | [address] | | | + + + + + | [facility] DEPARTMENT OF | [address] | [place] [address] | | | PATHOLOGY | [address] [...] | + + + + + | [facility] DEPARTMENT OF | [address] | [place] [address] | | | PATHOLOGY | [address] | | | + + + + + | [facility] DEPARTMENT OF | [address] | [place] [address] | | | PATHOLOGY | [address] [...] | + + + + + | [facility] DEPARTMENT OF | [address] | [place] [address] | | | PATHOLOGY | [address] | | | + + + + + | [facility] DEPARTMENT OF | [address] | [place] [address] | | | PATHOLOGY | [address] [...] DEPARTMENT OF | [address] | [place] [address] | | | PATHOLOGY | [address] | | | + + + + + | [facility] DEPARTMENT OF | [address] | [place] [address] | | | PATHOLOGY | [address] | | | + + + + + RENAL FUNCTION SET (10/29/2005 6:50 AM PDT) + +---------+ + + + | Component | Value | Ref Range | Performed | Pathologist | | | | | At | Signature | + +---------+ + + + | GLUCOSE, | 135 (H) | 65 - 110 mg/dL | [facility] | | | PLASMA | | [...] | + + + + + | [facility] DEPARTMENT OF | [address] | [place] [address] | | | PATHOLOGY | [address] | | | + + + + + | [facility] DEPARTMENT OF | [address] | [place] [address] | | | PATHOLOGY | [address] [...] DEPARTMENT OF | [address] | [place] [address] | | | PATHOLOGY | [address] | | | + + + + + | [facility] | [address] | [place] [address] | | | PATHOLOGY | [address] [...] + + + | [facility] | [address] | [place] [address] | | | PATHOLOGY | [address] | | | + + + + + | [facility] | [facility] [facility] | [place] [address] | | | PATHOLOGY | [address] [...] | + + + + + | [facility] DEPARTMENT OF | [address] | [place] [address] | | | PATHOLOGY | [address] | | | + + + + + | [facility] DEPARTMENT OF | [address] | [place] [address] | | | PATHOLOGY | [address] [...] + + + | [facility] | [address] | [place] [address] | | | PATHOLOGY | [address] | | | + + + + + | [facility] | [address] | [place] [address] | | | PATHOLOGY | [address] | | | + + + + + MAGNESIUM, PLASMA (10/28/2005 3:15 AM PDT) + +---------+ + + + | Component | Value | Ref Range | Performed | Pathologist | | | | | At | Signature | + +---------+ + + + | MAGNESIUM,P | 1.4 (L) | 1.8 - 2.5 mg/dL | [facility] | | | LASMA | | | [...] | + + + + + | [facility] DEPARTMENT OF | [address] | [place] [address] | | | PATHOLOGY | [address] | | | + + + + + | [facility] DEPARTMENT OF | [address] | [place] [address] | | | PATHOLOGY | [address] [...] | + + + + + | [facility] DE[facility]MENT OF | [address] | [place] [address] | | | PATHOLOGY | [address] | | | + + + + + | [facility] DEPARTMENT | [address] | [place] [address] | | | PATHOLOGY | [address] [...] + + + | [facility] | [address] | [place] [address] | | | PATHOLOGY | [address] | | | + + + + + | [facility] | [address] | [place] [address] | | | PATHOLOGY | [address] [...] DEPARTMENT OF | [address] | [place] [address] | | | PATHOLOGY | [address] | | | + + + + + | [facility] DEPARTMENT OF | [address] | [place] [address] | | | PATHOLOGY | [address] [...] | + + + + + | [facility] DEPARTMENT OF | [facility] [facility] [facility] | [place] [address] | | | PATHOLOGY | [address] | | | + + + + + | [facility] DEPARTMENT OF | [facility] [facility] | [place] [address] | | | PATHOLOGY | [address] [...] the | | | | | | tmo. Right internal | | | | | [...] | | + +---------+ + + | [facility] DEPARTMENT OF | | | | [...] + + + | [facility] | [address] | [place] [address] | | | PATHOLOGY | [address] | | | + + + + + | [facility] | [facility] [facility] | [place] [address] | | | PATHOLOGY | [address] | | | + + + + + MAGNESIUM, PLASMA (10/27/2005 6:15 PM PDT) + +---------+ + + + | Component | Value | Ref Range | Performed | Pathologist | | | | | At | Signature | + +---------+ + + + | MAGNESIUM,P | 1.5 (L) | 1.8 - 2.5 mg/dL | [facility] | | | LASMA | | [...] | + + + + + | [facility] DEPARTMENT OF | [address] | [place] [address] | | | PATHOLOGY | [address] | | | + + + + + | [facility] DEPARTMENT OF | [address] | [place] [address] | | | PATHOLOGY | [address] [...] | + + + + + | [facility] DEPARTMENT OF | [address] | [place] [address] | | | PATHOLOGY | [address] | | | + + + + + | [facility] | [facility] | [place] [address] | | | PATHOLOGY | [address] [...] OF | [address] | [place] [address] | | | PATHOLOGY | [address] | | | + + + + + | [facility] DEPARTMENT | [address] | [place] [address] | | | PATHOLOGY | [address] [...] + | [facility] DEPARTMENT OF | [address] | [place] [address] | | | PATHOLOGY | [address] | | | + + + + + | [facility] DEPARTMENT OF | [address] | [place] [address] | | | PATHOLOGY | [address] [...] DEPARTMENT OF | [address] | [place] [address] | | | PATHOLOGY | [address] | | | + + + + + | [facility] DEPARTMENT OF | [address] | [place] [address] | | | PATHOLOGY | [address] [...] + + + | [facility] | [address] | [place] [address] | | | LAB-MICRO | | | [...] | | | | | performed at [facility] | | | | | | [facility] | | | | | | Laboratory. | | | | + + + + + + + + | Specimen | + + | | + + + + + + + | Performing | Address | City/State/Zipcode | Phone Number | | Organization | | | | + + + + + | [facility] | [address] | [place] [address] | | | LAB-MICRO | | | [...] + + + | [facility] | [address] | [place] [address] | | | LAB-MICRO | | | [...] + + + | [facility] | [address] | [place] [address] | | | LAB-MICRO | | | [...] | | | | | performed at [facility] | | | | | | [facility] | | | | | | Laboratory | | | | + + + + + + + + | Specimen | + + | | + + + + + + + | Performing | Address | City/State/Zipcode | Phone Number | | Organization | | | | + + + + + | [facility] | [address] | [place] [address] | | | LAB-MICRO | | | [...] | + + + + + | [facility] | [address] | [place] [address] | | | LAB-MICRO | | | [...] | | | | Test performed at [facility] | | | | | | [facility] | | | | | | Laboratory. | | | | + + + + + + + + | Specimen | + + | | + + + + + + + | Performing | Address | City/State/Zipcode | Phone Number | | Organization | | | | + + + + + | [facility] | [address] | [place] [address] | | | LAB-MICRO | | | [...] | + + + + + | [facility] DEPARTMENT OF | [address] | [place] [address] | | | PATHOLOGY | [address] | | | + + + + + | [facility] | [address] | [place] [address] | | | PATHOLOGY | [address] [...] | + + + + + | [facility] | [address] | [place] [address] | | | LAB-MICRO | | | [...] | | | | | performed at [facility] | | | | | | [facility] | | | | | | Laboratory. | | | | + + + + + + + + | Specimen | + + | | + + + + + + + | Performing | Address | City/State/Zipcode | Phone Number | | Organization | | | | + + + + + | [facility] | [address] | [place] [address] | | | LAB-MICRO | | | [...] + + + | [facility] | [address] | [place] [address] | | | LAB-MICRO | | | [...] + + + | [facility] | [address] | [place] [address] | | | LAB-MICRO | | | [...] | | | | | performed at [facility] | | | | | | [facility] | | | | | | Laboratory | | | | + + + + + + + + | Specimen | + + | | + + + + + + + | Performing | Address | City/State/Zipcode | Phone Number | | Organization | | | | + + + + + | [facility] | [address] | [place] [address] | | | LAB-MICRO | | | [...] + + + | [facility] | [address] | [place] [address] | | | LAB-MICRO | | | [...] | | | | Test performed at [facility] | | | | | | [facility] | | | | | | Laboratory. | | | | + + + + + + + + | Specimen | + + | | + + + + + + + | Performing | Address | City/State/Zipcode | Phone Number | | Organization | | | | + + + + + | [facility] | [address] | [place] [address] | | | LAB-MICRO | | | [...] OF | [address] | [place] [address] | | | PATHOLOGY | [address] | | | + + + + + | [facility] DEPARTMENT OF | [address] | [place] [address] | | | PATHOLOGY | [address] [...] DEPARTMENT OF | [address] | [place] [address] | | | PATHOLOGY | [address] | | | + + + + + | [facility] DEPARTMENT | [address] | [place] [address] | | | PATHOLOGY | [address] | | | + + + + + SURGICAL PATHOLOGY (10/27/2005) + + + + + + | Component | Value | Ref Range | Performed | Pathologist | | | | | At | Signature | + + + + + + | SURGICAL | SOURCE OF SPECIMEN:A | | [facility] | | | PATHOLOGY | Parietal [...] A | | | | | | telephone service representative section | | | | | [...] noted. | | | | | | Equipment Operator | | | | | | sections [...] + + + | [facility] | [facility] [facility] | [place] [address] | | | PATHOLOGY | [address] | | | + + + + + | [facility] DEPARTMENT OF | [facility] [facility] | [place] [address] | | | PATHOLOGY | [address] [...] + + + + | PRODUCT | [id number] | | [facility] | | | UNIT [...] | + + + + + | [facility] DEPARTMENT OF | [address] | [place] [address] | | | PATHOLOGY | [address] | | | + + + + + | [facility] DEPARTMENT OF | [address] | [place] [address] | | | PATHOLOGY | [address] [...] + + + + | PRODUCT | [id number] | | [facility] | | | UNIT [...] | + + + + + | [facility] DEPARTMENT | [address] | [place] [address] | | | PATHOLOGY | [address] | | | + + + + + | [facility] DEPARTMENT | [facility] | [place] [address] | | | PATHOLOGY | [address] [...] (H) | 150 - 400 K/cu | [facility] | | | COUNT | | mm [...] | + + + + + | [facility] DEPARTMENT OF | [facility] | [place] [address] | | | PATHOLOGY | [address] | | | + + + + + | [facility] DEPARTMENT OF | [address] | [place] [address] | | | PATHOLOGY | [address] [...] + + + | [facility] | [address] [facility] | [place] [address] | | | PATHOLOGY | [address] | | | + + + + + | [facility] | [address] | [place] [address] | | | PATHOLOGY | [address] [...] + + + | [facility] | [address] [place] [address] | [place] [address] | | | PATHOLOGY | [address] | | | + + + + + | [facility] | [address] [place] [address] | [place] [address] | | | PATHOLOGY | [address] [...] + + + | [facility] | [address] [facility] | [place] [address] | | | PATHOLOGY | [address] | | | + + + + + | [facility] | [address] [facility] | [place] [address] | | | PATHOLOGY | [address] [...] | + + + + + | [facility] DEPARTMENT OF | [address] | [place] [address] | | | PATHOLOGY | [address] | | | + + + + + | [facility] | [address] | [place] [address] | | | PATHOLOGY | [address] [...] | + + + + + | [facility] DEPARTMENT OF | [address] | [place] [address] | | | PATHOLOGY | [address] | | | + + + + + | [facility] DEPARTMENT OF | [address] | [place] [address] | | | PATHOLOGY | [address] [...] | + + + + + | [facility] DEPARTMENT OF | [address] | [place] [address] | | | PATHOLOGY | [address] | | | + + + + + | [facility] DEPARTMENT OF | [address] | [place] [address] | | | PATHOLOGY | [address] | | | + + + + + ROD CUNNINGHAM (10/22/2005 8:50 PM PDT) + + + + + + | Component | Value | Ref Range | Performed | Pathologist | | | | | At | Signature | + + + + + + | COLOR(UR) | Yellow | | [facility] | | | | | | DEPARTMENT [...] DEPARTMENT OF | [address] | [place] [address] | | | PATHOLOGY | [address] | | | + + + + + | [facility] DEPARTMENT OF | [address] | [place] [address] | | | PATHOLOGY | [address] [...] + + + | [facility] | [address] | [place] [address] | | | PATHOLOGY | [address] | | | + + + + + | [facility] | [address] | [place] [address] | | | PATHOLOGY | [address] [...] OF | [address] | [place] [address] | | | PATHOLOGY | [address] | | | + + + + + | [facility] DEPARTMENT OF | [address] | [place] [address] | | | PATHOLOGY | [address] [...] + + + | [facility] | [facility] | [place] [address] | | | PATHOLOGY | [address] | | | + + + + + | [facility] DEPARTMENT OF | [address] | [place] [address] | | | PATHOLOGY | [address] [...] + + + | [facility] | [address] | [place] [address] | | | PATHOLOGY | [address] | | | + + + + + | [facility] | [address] | [place] [address] | | | PATHOLOGY | [address] [...] | + + + + + | [facility] | [address] [facility] | [place] [address] | | | PATHOLOGY | [address] | | | + + + + + | [facility] | [facility] [facility] | [place] [address] | | | PATHOLOGY | [address] | | | + + + + + documented in this encounter Visit Diagnoses Not on filedocumented in this encounter"
--- OUTSIDE RECORDS SUMMARY | ~2019-05-03 | XMS | Encounter Summary ---
Demographics + + + | Address | [address] | | | [place] [address] | + + + | Home Phone [...] | | | | | [place] [address] | | + + + + + Care Team Providers + +------+ + | Care Construction Project Mgr Name | Role | Phone | + +------+ + PCP | Unavailable | + +------+ + Encounter Details +--------+ + + + + | Date | Type | Department | Care Team | Description | +--------+ + + + + | 12/03/ | Results | | Other, Faculty | | | 2002 | Only | | [phone] | | +--------+ + + + + [...] OF | [address] | [place] [address] | | | PATHOLOGY | [address] | | | + + + + + | [facility] | [address] | [place] [address] | | | PATHOLOGY | [address] | | | + + + + + documented in this encounter Visit Diagnoses Not on filedocumented in this encounter"
--- OUTSIDE RECORDS SUMMARY | ~2019-05-03 | XMS | Encounter Summary ---
Demographics + + + | Address | [address] | | | [place] [address] | + + + | Home Phone [...] | | | | | [place] [address] | | + + + + + | Robson Min | ECON | Unknown | | + + + + + | Isabella Whitehead | ECON | Unknown | | + + + + + Care Team Providers + +------+ + | Care Dental Office Manager Name | Role | Phone | + +------+ + PCP | Unavailable | + +------+ + Encounter Details +--------+ + + + + | Date | Type | Department | Care Team | Description | +--------+ + + + + | 04/06/ | Hospital | [facility] | | | | 2000 | Encounter | MED CTR SLEEP | | | | | | CENTER [address] | | | | | | [place] | | | | | | [address] | | | | | | [phone] | | | +--------+ + + + [...] [place] | | | | | | [address] | | | | | | | | +--------+---------+ + + + | 07/26/ | Office | Pulmonology | Navdeep Grande, | | | 2019 | Visit | | MD Cely GORE | | | | | | [place] | | | | | | [address] | | | | | | | | +--------+---------+ + + + documented as of this encounter Visit Diagnoses Not on filedocumented in this encounter"
--- OUTSIDE RECORDS SUMMARY | ~2019-05-03 | XMS | Encounter Summary ---
Demographics + + + | Address | [address] | | | [place] [address] | + + + | Home Phone [...] | | | | | [place] [address] | | + + + + + | Robson Min | ECON | Unknown | | + + + + + | Isabella Whitehead | ECON | Unknown | | + + + + + Care Team Providers + +------+ + | Care Research Editor Name | Role | Phone | [...] | | apnea, | [address] | | | | | unspecified | [address] | [place], | | | | | type | [place], | [place] [address] | | | | | Alveolar | [place] [address] | Phone: | | | | | hypoventilat | Phone: | [phone] | | | | | ion | [phone] | Fax: | | | | | Procedures | Fax: | [phone] | | | | | [place] POLYSOM | [phone] | | | | | | 6/>YRS [...] + + | 11/22/ | Hospital | [facility] | Navdeep Grande, | Sleep apnea, | | 2018 - | Encounter | MED CTR SLEEP | [address] | unspecified type; | | | | CENTER [address] | [place], [place] | Alveolar | | 11/23/ | | [place], [place] | [address] | hypoventilation; | | 2017 | | [address] | | COPD, mild ([facility]) | | | | [phone] | | | +--------+ + + + [...] [place] | | | | | | [address] | | | | | | | | +--------+---------+ + + + | 07/26/ | Office | Pulmonology | Navdeep Grande, | | | 2019 | Visit | | [address] | | | | | | [place] | | | | | | [address] | | | | | | | [...]
--- OUTSIDE RECORDS SUMMARY | ~2019-05-03 | XMS | Encounter Summary ---
Demographics + + + | Address | [address] | | | [place] [address] | + + + | Home Phone | | + + + | Preferred Language | Unknown | + + + | Marital Status | Single | + + + | Confucianism Affiliation | Unknown | + + + [...] | | | | | [place] [address] | | + + + + + | Robson Min | ECON | Unknown | | + + + + + | Isabella Whitehead | ECON | Unknown | | + + + + + Care Team Providers + +------+ + | Care Fur Cutter Name | Role | Phone | [...] Alessia Salgado | | | | | [place], [place] | [place] [address] | | | | | [address] | [phone] | | | | | [phone] | | | +--------+ + + + [...] [place] | | | | | | [address] | | | | | | | | +--------+---------+ + + + | 07/26/ | Office | Pulmonology | Navdeep Grande, | | | 2019 | Visit | | [address] | | | | | | [place] | | | | | | [address] | | | | | | | [...] LVLs A4C: 7.85 cm | | | Couture Dressmaker: SAL Authenticated by: Braden Isabel Report | [...] MOD A4C: 46.26 mlLVLs A4C: 7.85 cm Couture Dressmaker: | | DHAuthenticated by: Brdaen IsabelReport Date/Time: 09-21-2015 16:05:10 IMPRESSION: | | [...] |LVLs A4C: 7.85 cm | | | |Couture Dressmaker: DH | |Authenticated by: Braden Isabel | |Report Date/Time: 09-21-2015 16:05:10 | | | |IMPRESSION: | |1. Overall left ventricular systolic function is normal with, an EF between 65 - 70 %. | + + documented in this encounter Visit Diagnoses Not on filedocumented in this encounter"
--- OUTSIDE RECORDS SUMMARY | ~2019-05-03 | XMS | Encounter Summary ---
Demographics + + + | Address | [address] | | | [place] [address] | + + + | Home Phone [...] | | | | | [place] [address] | | + + + + + | Robson Min | ECON | Unknown | | + + + + + | Isabella Whitehead | ECON | Unknown | | + + + + + Care Team Providers + +------+ + | Care Physician Internist Name | Role | Phone | + +------+ + | Bart Ba DO | PCP | | + +------+ + Encounter Details +--------+ + + + + | Date | Type | Department | Care Team | Description | +--------+ + + + + | 03/15/ | Hospital | [facility] | Jimbo Samayoa MD | Disorientation; | | 2017 | Encounter | HOSPITAL RESPIRATORY | [address] | Dizziness | | | | THERAPY [address] | [place] | | | | | DR [place] | [address] | | | | | [address] | | | | | | [phone] | | | +--------+ + + + [...] 9 | | MISCIndications: | 550mlIPAP 19 [id number] | | | | | | Alveolar | 9 [id number] | | | | | | hypoventilation, [...] [place] | | | | | | [address] | | | | | | | | +--------+---------+ + + + | 07/26/ | Office | Pulmonology | Navdeep Grande, | | | 2019 | Visit | | MD Cely GORE | | | | | | [place] | | | | | | [address] | | | | | | | [...]
--- OUTSIDE RECORDS SUMMARY | ~2019-05-03 | XMS | Encounter Summary ---
Demographics + + + | Address | [address] | | | [place] [address] | + + + | Home Phone [...] | | | | | [place] [address] | | + + + + + | Robson Min | ECON | Unknown | | + + + + + | Isabella Whitehead | ECON | Unknown | | + + + + + Care Team Providers + +------+ + | Care Tire Recapper Name | Role | Phone | + [...] | | | | | | kidney ([facility]) | | | | | | | [...] | Visit | HOSPITAL NEUROLOGY | Theo, [address] | disorientation | | | | CLINIC [address] | [address] [facility] [place], | | | | | [address] [place], | [place] [address] | | | | | [place] [address] | [phone] | | | | | [phone] | | | +--------+---------+ + + + [...] it was 260. Pt t ransported to [facility] ER./MARTHA Zacarias documented in thi s [...] [place] | | | | | | [address] | | | | | | | | +--------+---------+ + + + | 07/26/ | Office | Pulmonology | Navdeep Grande, | | | 2019 | Visit | | MD Cely GORE | | | | | | [place] | | | | | | [address] | | | | | | | | +--------+---------+ + + + documented as of this encounter Visit Diagnoses + + | Diagnosis | + + | Confusion and disorientation | + + documented in this encounter"
--- OUTSIDE RECORDS SUMMARY | ~2019-05-03 | XMS | Encounter Summary ---
Demographics + + + | Address | [address] | | | [place] [address] | + + + | Home Phone [...] | | | | | [place] [address] | | + + + + + Care Team Providers + +------+ + | Care Waste Treatment Operator Name | Role | Phone | + +------+ + PCP | Unavailable | + +------+ + Encounter Details +--------+ + + + + | Date | Type | Department | Care Team | Description | +--------+ + + + + | 10/31/ | Respiratory | | Other, Faculty | | | 2006 | Therapy | | [phone] | | +--------+ + + + + [...] Cabrera, | | | | | | DIVINITY TEACHER | | | | + + + [...] [facility] | [address] | [place], [place] | | | DIAGNOSTICS - | [address] | [address] | | | PULMONARY FUNCTION | | | | + + + + + documented in this encounter Visit Diagnoses Not on filedocumented in this encounter"
--- OUTSIDE RECORDS SUMMARY | ~2019-05-03 | XMS | Encounter Summary ---
Demographics + + + | Address | [address] | | | [place] [address] | + + + | Home Phone [...] + + + | Author | [facility] | + + + | Organization | [facility] | + + + | Address | Unknown | + + + | Phone | Unavailable | + + + Support + + + + + | Name | Relationship | Address | Phone | + + + + + | Scot Johnson | ECON | [address] | | | | | [place] [address] | | + + + + + Care Team Providers + +------+ + | Care Outreach Counselor Name | Role | Phone | [...] as of this encounter Progress Notes Interface, Maintenance Technician In - 04/28/2006 1:02 AM PSTCLINIC DATE: [...] with Dr. Dawson. MD Letty Lipscomb M.D. Inspector Materials And Processes, Medicine Arthritis and Rheumatic Disease ALBERTO/eddie Electronically signed by Interface, Maintenance Technician In at 01/2007 1:02 AM PSTdocumented in this encounter Plan of Treatment Not on filedocumented as of this encounter Visit Diagnoses Not on filedocumented in this encounter"
--- OUTSIDE RECORDS SUMMARY | ~2019-05-03 | XMS | Encounter Summary ---
Demographics + + + | Address | [address] | | | [place] [address] | + + + | Home Phone [...] | | | | | [place] [address] | | + + + + + Care Team Providers + +------+ + | Care Internet Marketing Strategist Name | Role | Phone | + +------+ + PCP | Unavailable | + +------+ + Encounter Details +--------+ + + + + | Date | Type | Department | Care Team | Description | +--------+ + + + + | 10/23/ | Respiratory | | Other, Faculty | | | 2006 | Therapy | | [phone] | | +--------+ + + + + [...] [facility] | [address] | [place], [place] | | | DIAGNOSTICS - | [address] | [address] | | | PULMONARY FUNCTION | | | | + + + + + documented in this encounter Visit Diagnoses Not on filedocumented in this encounter"
--- OUTSIDE RECORDS SUMMARY | ~2019-05-03 | XMS | Encounter Summary ---
Demographics + + + | Address | [address] | | | [place] [address] | + + + | Home Phone [...] | | | | | [place] [address] | | + + + + + | Robson Min | ECON | Unknown | | + + + + + | Isabella Whitehead | ECON | Unknown | | + + + + + Care Team Providers + +------+ + | Care Tube Drawing Supervisor Name | Role | Phone | [...] Medicine | JESUSITA | N[address] Th[address] | [place] [address] [address] | | | Required | | (obstructive | MD [address] | | | | | sleep | [facility] | [place], | | | | | apnea) | [facility] | [place] [address] | | | | | Nocturnal | [place], [place] | Phone: | | | | | oxygen | [address] | [phone] | | | | | desaturation | Phone: | Fax: | | | | | E66.2 | [phone] | [phone] | | | | | (ICD-10-CM) | Fax: | | | | | | - 278.03 | [phone] | | | | | | (ICD-9-CM) [...] | | | | | | | [place] [...] ion JESUSITA and | [address] | [address] | | | | | COPD | [place], | [place], | | | | | overlap | [place] [address] | [place] [address] | | | | | syndrome | Phone: | Phone: | | | | | ([facility]) | [phone] | [phone] | | | | | | Fax: | Fax: | | | | | | [phone] | [phone] | +--------+ + + + + + Encounter Details +--------+---------+ + + + | Date | Type | Department | Care Team | Description | +--------+---------+ + + + | 07/28/ | Office | [facility] | Neno Walker | [place]US[place] (obstructive | | 2019 | Visit | SLEEP DISORDER [address] | MD [address]rin[address] | sleep apnea) | | | | [address] [place] | [address] [place] | (Primary Dx); | | | | [place] [address] | [place] [address] | Obesity | | | | [phone] | [phone] | hypoventilation | | | | | [...] | | | | | ([facility]) | +--------+---------+ + + + Social [...] Insomnia Severity Index Insomnia Severity Index 21 [place] Sleepiness Scale 1. Sitting and reading 3 [...] [place] | | | | | | [address] | | | | | | | | +--------+---------+ + + + | 07/26/ | Office | Pulmonology | Navdeep Grande, | | | 2019 | Visit | | [address] | | | | | | [place] | | | | | | [address] | | | | | | | [...] + +--------+ + + | * [facility] Sleep Center - | Outpatient | [...]
--- OUTSIDE RECORDS SUMMARY | ~2019-05-03 | XMS | Encounter Summary ---
Demographics + + + | Address | [address] | | | [place] [address] | + + + | Home Phone [...] | | | | | [place] [address] | | + + + + + | Robson Min | ECON | Unknown | | + + + + + | Isabella Whitehead | ECON | Unknown | | + + + + + Care Team Providers + +------+ + | Care Executive Assistant Name | Role | Phone | [...] | | | Procedures | [place], | [place], [place] | | | | | OFFICE | [place] [address] | [address] Phone: | | | | | VISIT | Phone: | [phone] | | | | | REGULAR | [phone] | Fax: | | | | | | Fax: | [phone] | | | | | | [phone] | | + +--------+ + + + + Encounter Details +--------+---------+ + + + | Date | Type | Department | Care Team | Description | +--------+---------+ + + + | 04/06/ | Office | [facility] | Laine Batista DO | Hypertension, | | 2019 | Visit | CARDIOLOGY [place] | [address] | unspecified type | | | | [address] [facility] | [address] [place], [place] | (Primary Dx); Type [address] | | | | [address] | [id number] | diabetes mellitus | | | | [place], [place] | | with hyperosmolarity | | | | [address] | | without coma, | | | | [phone] | | without long-term | | | [...] Batista DO - 04/06/2019 1:40 PM PST [facility] Cardiology Cardiology Consult Note Reason for Consultation: [...] HEALTHCARE) Followed by Dr. Becerra Rheumologist in [place] Reflux esophagitis Restless leg syndrome Urinary [...] times daily. Respiratory Therapy Supplies [facility] Portable oxygen concentrator to provide O2 at [...] file Gets together: Not on file Attends sikh service: Not on file Active member of [...] [place] | | | | | | [address] | | | | | | | [...]
--- OUTSIDE RECORDS SUMMARY | ~2019-05-03 | XMS | Encounter Summary ---
Demographics + + + | Address | [address] | | | [place] [address] | + + + | Home Phone [...] | | | | | [place] [address] | | + + + + + | Robson Min | ECON | Unknown | | + + + + + | Isabella Whitehead | ECON | Unknown | | + + + + + Care Team Providers + +------+ + | Care Pals Nurse Name | Role | Phone | + +------+ + | Bart Ba DO | PCP | | + +------+ + Encounter Details +--------+ + + + + | Date | Type | Department | Care Team | Description | +--------+ + + + + | 08/25/ | Hospital | [facility] | Navdeep Grande, | COPD (chronic | | 2013 | Encounter | MED CTR PULMONARY | MD [address] | obstructive | | | | FUNCTION [address] | [place], [place] | pulmonary disease) | | | | [place], | [address] | ([facility]) | | | | [place] [address] | | | | | | [phone] | | | +--------+ + + + [...] | 0 | 10/08/19 | | | [id number] | every 6 hours as | | [...] [place] | | | | | | [address] | | | | | | | | +--------+---------+ + + + | 07/26/ | Office | Pulmonology | Navdeep Grande, | | | 2019 | Visit | | [address] | | | | | | [place] | | | | | | [address] | | | | | | | [...] results section. | | | | | ([facility]) | | + +--------+ + [...] signed by: Navdeep Grande MD 08/25/2013 15:49 [facility] | | | [facility] | | + + + + [...] by: | | Navdeep Grande MD 08/25/2013 15:49[facility] | |IMPRESSION: Spirometry is consistent with normal physiology. Lung volume testing is consist ent with normal physiology. Diffusion capacity is mildly reduced and was not corrected for m easured hemoglobin. | | | |No prior pulmonary function tests available for comparison | | | |Test performed: 08/25/13 | |Electronically signed by: Navdeep Grande MD 08/25/2013 15:49 | |[facility] | + + documented in this encounter Visit Diagnoses + + | Diagnosis | + + | COPD (chronic obstructive pulmonary disease) (HCC) Chronic airway obstruction, not | | elsewhere classified | + + documented in this encounter"
--- OUTSIDE RECORDS SUMMARY | ~2019-05-03 | XMS | Encounter Summary ---
Demographics + + + | Address | [address] | | | [place] [address] | + + + | Home Phone | | + + + | Preferred Language | Unknown | + + + | Marital Status | Single | + + + | Advent Affiliation | CHR | + + + [...] | | | | | [place] [address] | | + + + + + Care Team Providers + +------+ + | Care Industrial Roofer Helper Name | Role | Phone | + +------+ + PCP | Unavailable | + +------+ + Encounter Details +--------+ + + + + | Date | Type | Department | Care Team | Description | +--------+ + + + + | 11/02/ | Respiratory | | Other, Faculty | | | 2006 | Therapy | | [phone] | | +--------+ + + + + [...] [facility] | [address] | [place], [place] | | | DIAGNOSTICS - | [address] | [address] | | | PULMONARY FUNCTION | | | | + + + + + documented in this encounter Visit Diagnoses Not on filedocumented in this encounter"
--- OUTSIDE RECORDS SUMMARY | ~2019-05-03 | XMS | Encounter Summary ---
Demographics + + + | Address | [address] | | | [place] [address] | + + + | Home Phone [...] | | | | | [place] [address] | | + + + + + | Robson Min | ECON | Unknown | | + + + + + | Isabella Whitehead | ECON | Unknown | | + + + + + Care Team Providers + +------+ + | Care Peer Health Promoter Name | Role | Phone | + [...] | | PULMONARY [address] | [address] | | | | | [place], | | | | | | [place] [address] | | | | | | [phone] | | | +--------+ + + + [...] [place] | | | | | | [address] | | | | | | | | +--------+---------+ + + + | 07/26/ | Office | Pulmonology | Navdeep Grande, | | | 2019 | Visit | | MD [address] | | | | | | [place] | | | | | | [address] | | | | | | | | +--------+---------+ + + + documented as of this encounter Visit Diagnoses Not on filedocumented in this encounter"
--- OUTSIDE RECORDS SUMMARY | ~2019-05-03 | XMS | Encounter Summary ---
Demographics + + + | Address | [address] | | | [place] [address] | + + + | Home Phone [...] + + + | Author | [facility] | + + + | Organization | [facility] | + + + | Address | Unknown | + + + | Phone | Unavailable | + + + Support + + + + + | Name | Relationship | Address | Phone | + + + + + | Scot Johnson | ECON | [address] | | | | | [place] [address] | | + + + + + Care Team Providers + +------+ + | Care Photography Intern Name | Role | Phone | [...] | | | | | | [facility], | | | | | | [place] [address] | | | | | | [phone] | | | +--------+ + + + [...] + + + | [facility] | [address] | [place] [address] | | | LABORATORY | | | [...] + | [facility] | [address] | [place] [address] | | | PATHOLOGY | [address] | | | + + + + + | [facility] | [address] | [place] [address] | | | PATHOLOGY | [address] | | | + + + + + documented in this encounter Visit Diagnoses Not on filedocumented in this encounter"
--- OUTSIDE RECORDS SUMMARY | ~2019-05-03 | XMS | Encounter Summary ---
Demographics + + + | Address | [address] | | | [place] [address] | + + + | Home Phone [...] | | | | | [place] [address] | | + + + + + | Robson Min | ECON | Unknown | | + + + + + | Isabella Whitehead | ECON | Unknown | | + + + + + Care Team Providers + +------+ + | Care Fire Crew Worker Name | Role | Phone | + +------+ + | Juanito Avery | DOMONIQUE | | + +------+ + Encounter Details +--------+ + + + + | Date | Type | Department | Care Team | Description | +--------+ + + + + | 09/22/ | Transcribed | [facility] | Mary Malin RRT | | | 2019 | Orders | MED CTR RESPIRATORY | | | | | | THERAPY [address] | | | | | | [place], | | | | | | [place] [address] | | | | | | [phone] | | | +--------+ + + + [...] [place] | | | | | | [address] | | | | | | | | +--------+---------+ + + + | 07/26/ | Office | Pulmonology | Navdeep Grande, | | | 2019 | Visit | | MD Cely GORE | | | | | | [place] | | | | | | [address] | | | | | | | | +--------+---------+ + + + documented as of this encounter Visit Diagnoses Not on filedocumented in this encounter"
--- OUTSIDE RECORDS SUMMARY | ~2019-05-03 | XMS | Encounter Summary ---
Demographics + + + | Address | [address] | | | [place] [address] | + + + | Home Phone [...] | | | | | [place] [address] | | + + + + + | Robson Min | ECON | Unknown | | + + + + + | Isabella Whitehead | ECON | Unknown | | + + + + + Care Team Providers + +------+ + | Care Airplane Fueler Name | Role | Phone | + [...] [address] | | | | | [place] [address] | | | | | | [phone] | | | +--------+ + + + [...] [place] | | | | | | [id number] | | | | | | | | +--------+---------+ + + + | 07/26/ | Office | Pulmonology | Navdeep Grande, | | | 2019 | Visit | | [address] | | | | | | [place] | | | | | | [address] | | | | | | | | +--------+---------+ + + + documented as of this encounter Visit Diagnoses Not on filedocumented in this encounter"
--- OUTSIDE RECORDS SUMMARY | ~2019-05-03 | XMS | Encounter Summary ---
Demographics + + + | Address | [address] | | | [place] [address] | + + + | Home Phone [...] | | | | | [place] [address] | | + + + + + | Robson Min | ECON | Unknown | | + + + + + | Isabella Whitehead | ECON | Unknown | | + + + + + Care Team Providers + +------+ + | Care Monomer Recovery Operator Name | Role | Phone | [...] | | | | | | kidney ([facility]) | | | | | | | [...] | Visit | HOSPITAL NEUROLOGY | Theo, DIRECTOR IN[address]END[address] | disorientation | | | | CLINIC [address] | [address] [facility] [address], | | | | | [address] [place], | [place] [address] | | | | | [place] [address] | [phone] | | | | | [phone] | | | +--------+---------+ + + + [...] it was 260. Pt t ransported to [facility] ER./MARTH[place] Zacarias documented in thi s encounter [...] [place] | | | | | | [address] | | | | | | | | +--------+---------+ + + + | 07/26/ | Office | Pulmonology | Navdeep Grande, | | | 2019 | Visit | | MD Cely GORE | | | | | | [place] | | | | | | [address] | | | | | | | | +--------+---------+ + + + documented as of this encounter Visit Diagnoses + + | Diagnosis | + + | Confusion and disorientation | + + documented in this encounter"
--- OUTSIDE RECORDS SUMMARY | ~2019-05-03 | XMS | Encounter Summary ---
Demographics + + + | Address | [address] | | | [place] [address] | + + + | Home Phone [...] | | | | | [place] [address] | | + + + + + | Robson Min | ECON | Unknown | | + + + + + | Isabella Whitehead | ECON | Unknown | | + + + + + Care Team Providers + +------+ + | Care Sizer Machine Name | Role | Phone | [...] [address] | | | | | [place] [address] | | | | | | [phone] | | | +--------+ + + + [...] [place] | | | | | | [address] | | | | | | | | +--------+---------+ + + + | 07/26/ | Office | Pulmonology | GrandeNavdeep lopez, | | | 2019 | Visit | | MD Cely GORE | | | | | | [place] | | | | | | [address] | | | | | | | | +--------+---------+ + + + documented as of this encounter Visit Diagnoses Not on filedocumented in this encounter"
--- OUTSIDE RECORDS SUMMARY | ~2019-05-03 | XMS | Encounter Summary ---
Demographics + + + | Address | [address] | | | [place] [address] | + + + | Home Phone [...] | | | | | [place] [address] | | + + + + + | Robson Min | ECON | Unknown | | + + + + + | Isabella Whitehead | ECON | Unknown | | + + + + + Care Team Providers + +------+ + | Care Fire Prevention Inspector Name | Role | Phone | [...] Sleep | Diagnoses | Harjinder | [facility] | | | Services | Medicine | Alveolar | MD Navdeep | [facility] | | | Required | | hypoventilat | [address] | Disorder [address] | | | | | ion [place] and | [address] | [address] | | | | | COPD | [place], | [place], | | | | | overlap | [place] [address] | [place] [address] | | | | | syndrome | Phone: | Phone: | | | | | ([facility]) | [phone] | [phone] | | | | | | Fax: | Fax: | | | | | | [phone] | [phone] | +--------+ + + + + + [...] | | | Pulmonology | (chronic | [address] | [address] | | | | | obstructive | [address] | [place], | | | | | pulmonary | [place] | [place] [address] | | | | | disease) | 3-106 | Phone: | | | | | ([facility]) | TER[place] SANCHEZ | [phone] | | | | | Procedures | [address] | Fax: | | | | | F/U APPEver CRUZ | Phone: | [phone] | | | | | DARRICK GRANDE | [phone] | | | | | | 11/19/17 | | | +--------+--------+ + + + + Encounter Details +--------+---------+ + + + | Date | Type | Department | Care Team | Description | +--------+---------+ + + + | 05/20/ | Office | [facility] | Navdeep Grande, | Alveolar | | 2019 | Visit | PULMONARY [address] | MD [address] | hypoventilation | | | | [place], | [place] | (Primary Dx); COPD, | | | | [place] [address] | [address] | mild (HCC); Tobacco | | | | [phone] | | use disorder; | | | [...] 50,000 Units by mouth Once a w [place]., Disp: , Rfl: fluticasone-salmeterol (ADVAIR DISKUS) 250-50 [...] [place] | | | | | | [id number] | | | | | | | | +--------+---------+ + + + | 07/26/ | Office | Pulmonology | Navdeep Grande, | | | 2019 | Visit | | MD Cely GORE | | | | | | [place] | | | | | | [address] | | | | | | | [...]
--- OUTSIDE RECORDS SUMMARY | ~2019-05-03 | XMS | Encounter Summary ---
Demographics + + + | Address | [address] | | | [place] [address] | + + + | Home Phone [...] | | | | | [place] [address] | | + + + + + Care Team Providers + +------+ + | Care Workers Compensation Administrator Name | Role | Phone | + +------+ + PCP | Unavailable | + +------+ + Encounter Details +--------+ + + + + | Date | Type | Department | Care Team | Description | +--------+ + + + + | 10/31/ | Respiratory | | Other, Faculty | | | 2006 | Therapy | | [phone] | | +--------+ + + + + [...] Wahl, | | | | | | TECHNOLOGY RECRUITER | | | | + + [...] [facility] | [address] | [place], [place] | | | DIAGNOSTICS - | [place] | [address] | | | PULMONARY FUNCTION | | | | + + + + + documented in this encounter Visit Diagnoses Not on filedocumented in this encounter"
--- OUTSIDE RECORDS SUMMARY | ~2019-05-03 | XMS | Encounter Summary ---
Demographics + + + | Address | [address] | | | [place] [address] | + + + | Home Phone [...] | | | | | [place] [address] | | + + + + + | Robson Min | ECON | Unknown | | + + + + + | Isabella Whitehead | ECON | Unknown | | + + + + + Care Team Providers + +------+ + | Care Cd Reactor Operator Head Name | Role | Phone | [...] + + | 01/19/ | Documentati | [facility] | Nora Francis, | Other (end of study) | | 2019 | on | CARDIOLOGY [place] | Technologist | | | | | [address] | | | | | | [place] [address] | | | | | | [address] | | | | | | [phone] | | | +--------+ + + + [...] | 2019 | Visit | | [address] | | | | | | [place] | | | | | | [address] | | | | | | | | +--------+---------+ + + + | 07/26/ | Office | Pulmonology | Navdeep Grande, | | | 2019 | Visit | | MD Cely GORE | | | | | | [place] | | | | | | [id number] | | | | | | | | +--------+---------+ + + + documented as of this encounter Visit Diagnoses + + | Diagnosis | + + | Palpitations | + + documented in this encounter
--- OUTSIDE RECORDS SUMMARY | ~2019-05-03 | XMS | Encounter Summary ---
Demographics + + + | Address | [address] | | | [place] [address] | + + + | Home Phone [...] | | | | | [place] [address] | | + + + + + Care Team Providers + +------+ + | Care Blasting Clay Miner Name | Role | Phone | + +------+ + PCP | Unavailable | + +------+ + Encounter Details +--------+ + + + + | Date | Type | Department | Care Team | Description | +--------+ + + + + | 11/01/ | Respiratory | | Other, Faculty | | | 2006 | Therapy | | [phone] | | +--------+ + + + + [...] | | | Y | Lisa Wahl, DRONE PILOT | | | | + + + [...] [facility] | [address] | [place], [place] | | | DIAGNOSTICS - | [place] | [address] | | | PULMONARY FUNCTION | | | | + + + + + documented in this encounter Visit Diagnoses Not on filedocumented in this encounter"
--- OUTSIDE RECORDS SUMMARY | ~2019-05-03 | XMS | Encounter Summary ---
Demographics + + + | Address | [address] | | | [place] [address] | + + + | Home Phone [...] | | | | | [place] [address] | | + + + + + | Robson Min | ECON | Unknown | | + + + + + | Isabella Whitehead | ECON | Unknown | | + + + + + Care Team Providers + +------+ + | Care Shrinker Name | Role | Phone | + [...] + + | 10/02/ | Telephone | [facility] | Cecilio Amato MD | Results (gastric | | 2013 | | GASTROENTEROLOGY | [address] | emptying study) | | | | [address] [facility] | [place], [place] | | | | | [address] | [address] | | | | | [address] | [phone] | | | | | [phone] | | | +--------+ + + + [...] [place] | | | | | | [address] | | | | | | | | +--------+---------+ + + + | 07/26/ | Office | Pulmonology | Navdeep Grande, | | | 2019 | Visit | | [address] | | | | | | [place] | | | | | | [id number] | | | | | | | | +--------+---------+ + + + documented as of this encounter Visit Diagnoses Not on filedocumented in this encounter"
--- OUTSIDE RECORDS SUMMARY | ~2019-05-03 | XMS | Encounter Summary ---
Demographics + + + | Address | [address] | | | [place] [address] | + + + | Home Phone [...] | | | | | [place] [address] | | + + + + + [...] | | | Procedures | [place], | [place], [place] | | | | | OFFICE | [place] [address] | [address] Phone: | | | | | VISIT | Phone: | [phone] | | | | | REGULAR | [phone] | Fax: | | | | | | Fax: | [phone] | | | | | | [phone] | | + +--------+ + + + + Encounter Details +--------+---------+ + + + | Date | Type | Department | Care Team | Description | +--------+---------+ + + + | 04/06/ | Office | [facility] | Laine Batista DO | Hypertension, | | 2019 | Visit | CARDIOLOGY [place] | [address] | unspecified type | | | | [address] [facility] | [place] | (Primary Dx); Type 2 | | | | [address] | [address] | diabetes mellitus | | | | [place], [place] | | with hyperosmolarity | | | | [address] | | without coma, | | | | [phone] | | without long-term | | | [...] Batista DO - 04/06/2019 1:40 PM PST [facility] Cardiology Cardiology Consult Note Reason for [...] CENTER) Followed by Dr. Becerra Rheumologist in [place] Reflux esophagitis Restless leg syndrome Urinary [...] [place] | | | | | | [address] | | | | | | | [...]
--- OUTSIDE RECORDS SUMMARY | ~2019-05-03 | XMS | Encounter Summary ---
Demographics + + + | Address | [address] | | | [place] [address] | + + + | Home Phone [...] | | | | | [place] [address] | | + + + + + | Robson Min | ECON | Unknown | | + + + + + | Isabella Whitehead | ECON | Unknown | | + + + + + Care Team Providers + +------+ + | Care Ornamental Bronze Worker Name | Role | Phone | [...] | | | | | disease, | [place], | [place] [address] | | | | | unspecified | [place] | Phone: | | | | | ([facility]) | [address] | [phone] | | | | | Obstructive | Phone: | Fax: | | | | | sleep apnea | [phone] | [phone] | | | | | (adult) | Fax: | | | | | | (pediatric) | [phone] | | | | | | Procedures [...] | (Primary Dx); | | | | [place], | [place], [place] | Alveolar | | | | [place] [address] | [address] | hypoventilation; JESUSITA | | | | [phone] | | and COPD overlap | | [...] find a support program: Free national quitline: 134-RPNB-ATX (276-250-0674). Hospital quit-smoking programs. [place] [employer]: (434.959.1543). [place] [employer] (051-442-8543). Support at home is important too. Nonsmokers can offer praise and encouragement. If the smo ker in your life finds it hard to quit, encourage them to keep trying. Mldu-tsc-fxrream medicines Nicotine replacement therapymay make quittingeasier. Certain [...] the Air" booklet from the National Cancer [place]: smokefree.gov/sites/defau lt/files/pdf/wnlqybua-pyj-tta-accessible.pdf Date Last Reviewed: 06/17/201619990831-6160 [employer]. [address] [place] [address], [place] [address]. All righ ts reserved. This information is [...] with prednisone and doxycycline. Unfortunately while in [facility] at a neurology appointment the patient had a presync opal episode. She also had apparently "run out" of her oxygen. She was subsequently admitt ed to the hospital in [facility]. They have had any acute pulmonary [...] changes Acid reflux disease Bipolar 1 disorder ([facility]) CHRONIC TENSION HEADACHE Classical migraine without mention of intractable migraine Diabetes mellitus, type 2 ([facility]) Empyema lung ([facility]) 2005 right GI bleeding Hypercholesterolemia Hypertension Hypothyroidism IBS (irritable bowel syndrome) Knee pain Lymphedema Nausea and vomiting Nocturia Obesity Panic anxiety syndrome Pneumonia Pyoderma gangreosum-LE RA (rheumatoid arthritis) ([facility]) Followed by Dr. Becerra Rheumologist in [place] Reflux esophagitis Restless leg syndrome Urinary [...] by mouth Once a w [place]., Disp: , Rfl: LANTUS SOLOSTAR 100 UNIT/ML [...] QUADR W/PRES (PED/ADOL/ADULT) MULTIDOSE 01/27/2017, 02/10/2018 INFLUENZA, [id number], UNSPECIFIED 03/09/2009 INFLUENZA, UNSPECIFIED FORMULATION 04/27/2000, 02/04/2011, [...] Psychiatric: Affect normal. Data: Discharge summary from [facility] in the [facility] references: The patient was subsequently admitted [...] [place] | | | | | | [address] | | | | | | | [...] Grande MD 09/22/2018 | | | 14:54[facility] | | |physiology. Lung volume testing is [...] Grande MD 09/22/2018 14:54 | | |[facility] | | + + + documented in [...]
--- OUTSIDE RECORDS SUMMARY | ~2019-05-03 | XMS | Encounter Summary ---
Demographics + + + | Address | [address] | | | [place] [address] | + + + | Home Phone [...] | | | | | [place] [address] | | + + + + + | Robson Min | ECON | Unknown | | + + + + + | Isabella Whitehead | ECON | Unknown | | + + + + + Care Team Providers + +------+ + | Care Accounting Manager Controller Name | Role | Phone | [...] (Primary Dx) | | | | [place] [address] | | | | | | [phone] | | | +--------+ + + + [...] [place] | | | | | | [address] | | | | | | | | +--------+---------+ + + + | 07/26/ | Office | Pulmonology | Navdeep Grande, | | | 2019 | Visit | | MD [address] | | | | | | [place] | | | | | | [address] | | | | | | | [...]
--- OUTSIDE RECORDS SUMMARY | ~2019-05-03 | XMS | Encounter Summary ---
Demographics + + + | Address | [address] | | | [place] [address] | + + + | Home Phone [...] | | | | | [place] [address] | | + + + + + Care Team Providers + +------+ + | Care Centrifugal Chiller Technician Name | Role | Phone | + +------+ + PCP | Unavailable | + +------+ + Encounter Details +--------+ + + + + | Date | Type | Department | Care Team | Description | +--------+ + + + + | 10/31/ | Respiratory | | Other, Faculty | | | 2006 | Therapy | | [phone] | | +--------+ + + + + [...] Hackett, | | | | | | BILLING CUSTOMER SERVICE REPRESENTATIVE | | | | + + [...] [facility] | [address] | [place] | | | DIAGNOSTICS - | [place] | [address] | | | PULMONARY FUNCTION | | | | + + + + + documented in this encounter Visit Diagnoses Not on filedocumented in this encounter"
--- OUTSIDE RECORDS SUMMARY | ~2019-05-03 | XMS | Encounter Summary ---
Demographics + + + | Address | [address] | | | [place] [address] | + + + | Home Phone [...] | | | | | [place] [address] | | + + + + + | Robson Min | ECON | Unknown | | + + + + + | Isabella Whitehead | ECON | Unknown | | + + + + + Care Team Providers + +------+ + | Care Import Manager Name | Role | Phone | [...] [address] | | | | | [place], | [place] | | | | | [place] [address] | [address] | | | | | [phone] | | | +--------+ + + + [...] [place] | | | | | | [address] | | | | | | | | +--------+---------+ + + + | 07/26/ | Office | Pulmonology | Navdeep Grande, | | | 2019 | Visit | | [address] | | | | | | [place] | | | | | | [address] | | | | | | | | +--------+---------+ + + + documented as of this encounter Visit Diagnoses Not on filedocumented in this encounter"
--- OUTSIDE RECORDS SUMMARY | ~2019-05-03 | XMS | Encounter Summary ---
Demographics + + + | Address | [address] | | | [place] [address] | + + + | Home Phone [...] | | | | | [place] [address] | | + + + + + | Robson Min | ECON | Unknown | | + + + + + | Isabella Whitehead | ECON | Unknown | | + + + + + Care Team Providers + +------+ + | Care Leather Belt Loop Cutter Name | Role | Phone | [...] Medicine | [place] | Neno Thong | [place] [address] [address] | | | Required | | (obstructive | MD [address] | | | | | sleep | [facility] | [place], | | | | | apnea) | [facility] | [place] [address] | | | | | Nocturnal | [place], [place] | Phone: | | | | | oxygen | [address] | [phone] | | | | | desaturation | Phone: | Fax: | | | | | E66.2 | [phone] | [phone] | | | | | (ICD-10-CM) | Fax: | | | | | | - 278.03 | [phone] | | | | | | (ICD-9-CM) [...] | | | | | | | [place] POLYSOM | | | | | | [...] ion JESUSITA and | [address] | [address] | | | | | COPD | [place], | [place], | | | | | overlap | [place] [address] | [place] [address] | | | | | syndrome | Phone: | Phone: | | | | | ([facility]) | [phone] | [phone] | | | | | | Fax: | Fax: | | | | | | [phone] | [phone] | +--------+ + + + + + Encounter Details +--------+---------+ + + + | Date | Type | Department | Care Team | Description | +--------+---------+ + + + | 07/28/ | Office | [facility] | Neno Walker | [place]ESUSITA (obstructive | | 2019 | Visit | SLEEP DISORDER [address] | MD [address] | sleep apnea) | | | | [address] [place] | [address] [place] | (Primary Dx); | | | | [place] [address] | [place] [address] | Obesity | | | | [phone] | [phone] | hypoventilation | | | | | [...] mixed | | | | | | ([facility]) | +--------+---------+ + + + Social History [...] Insomnia Severity Index Insomnia Severity Index 21 [place] Sleepiness Scale 1. Sitting and reading 3 [...] [place] | | | | | | [address] | | | | | | | | +--------+---------+ + + + | 07/26/ | Office | Pulmonology | Navdeep Grande, | | | 2019 | Visit | | [address] | | | | | | [place] | | | | | | [address] | | | | | | | [...] + + +--------+ + + | * [facility] - | Outpatient | [...]
--- OUTSIDE RECORDS SUMMARY | ~2019-05-03 | XMS | Encounter Summary ---
Demographics + + + | Address | [address] | | | [place] [address] | + + + | Home Phone [...] | | | | | [place] [address] | | + + + + + | Robson Min | ECON | Unknown | | + + + + + | Isabella Whitehead | ECON | Unknown | | + + + + + Care Team Providers + +------+ + | Care Corporate Trainer Name | Role | Phone | + [...] | | [place], [place] | [place] [address] | ([facility]) (Primary Dx); | | 2018 | | [address] | [phone] | Pneumonia of both | | | | [phone] | | lungs due to | | | | | Aidan Dumont, | infectious organism, | | | | | MD [address] | unspecified part of | | | | | [place] [address] | lung; Acute | | | | | [phone] | metabolic | | | | | | encephalopathy; | | | | | Dasahwn Nettles, | Acute renal failure | | | | | MD [address] | with other specified | | | | | [place] [address] | pathological lesion | | | | | [phone] | in kidney (HCC) | | | [...] TIMOTHY Singleton [address] [place] [address] In 1 week Template: I certify that [...] times per week for 4 wee ks. BUSINESS AND SERVICES INSTRUCTOR for to be seen ___ times per week for ___ weeks. ADJUNCT TRAINER for to be seen ___ times per week for ___ weeks. BOTTOM BUFFER for to b e seen ___ times [...] 08/19/2018 Co-signer: Dashawn Nettles MD NPI # [id number] Date: 08/19/2018 (Only need MD jansen if a PA/PAYROLL AUDITOR referring) Examples: ? Clinical finding to support the need for services: Requires detention/physical metallurgist apy for ? Evidence of Homebound status: [...] have a valid medical license in the [facility] (this wi ll be the physician who will sign Home Health POC) Electronically signed by: Dashawn Nettles 08/19/2018 8:50 [facility] Time spent discharging this patient: 20 minutes spent caring for this patient. documented in this encounter Discharge Instructions AttachmentsThe following attachments cannot be sent through Care Everywhere.Adult, Pneumoni a (Armenian)Smoking,Health Effects of (Armenian)Smoking Cessation (Armenian)documented in thi s encounter Medications at Time [...] signed by: Dashawn Nettles 08/18/2018 10:38 [facility] Portions of this chart may have been [...] signed by: Dashawn Nettles 08/17/2018 8:50 [facility] Portions of this chart may have been [...] was completed using: -medication list faxed from [facility] Major discrepancies noted: patient was not coherent enough to obtain an accurate medication list from her at the time of admission and subsequently has ended up intubated. Obtained a medication fill history of SNAPCARD and updated the medication from the most recent fill his tory. Patient is currently up to date on her pneumococcal vaccine. PPSV23: 04/04/09, 03/19/13, 01/10/15 PCV13: 03/19/13, 04/24/14 Please see WEIGHTS AND MEASURES INSPECTOR med list for updated medication list. Electronically [...] signed by: Dashawn Nettles 08/16/2018 8:24 [facility] Portions of this chart may have been [...] [place] | | | | | | [address] | | | | | | | [...] + + | [facility] | [address] | [place] [address] | [phone] | | HOSPITAL LAB[facility]ORY | | | [...] + + | [facility] | [address] | [place] [address] | [phone] | | HOSPITAL LAB[facility]ATORY | | | [...] + + | [facility] | [address] | [place] [address] | [phone] | | HOSPITAL LABORATORY | | | [...] + + | [place] [facility] | [address] | [place] [address] | [phone] | | HOSPITAL LAB[facility]ATORY | | | [...] + + | [facility] | [address] | [place] [address] | [phone] | | HOSPITAL LAB[facility]ATORY | | | [...] + + | [facility] | [address] | [place] [address] | [phone] | | HOSPITAL LAB[facility]ATORY | | | [...] + + | [facility] | [address] | [place] [address] | [phone] | | HOSPITAL LAB[facility]ATORY | | | [...] + + | [place] [facility] | [address] | [place] [address] | [phone] | | HOSPITAL LAB[facility]ATORY | | | [...] | mL/min/1.73m2 | [facility] | | | [facility] | | | [facility] | | | [...] + + | [place] [facility] | [address] | [place] [address] | [phone] | | HOSPITAL LABORATORY | | | [...] + + | [place] | [address] | [place] [address] | [phone] | | HOSPITAL LAB[facility]ORY | | | [...] + + | [facility] | [address] | [place] [address] | [phone] | | HOSPITAL LAB[facility]ATORY | | | [...] + + | [place] [facility] | [address] | [place] [address] | [phone] | | HOSPITAL LAB[facility]ATORY | | | [...] + + | [place] [facility] | [address] | [place] [address] | [phone] | | HOSPITAL LAB[facility]ATORY | | | [...] + + | [facility] | [address] | [place] [address] | [phone] | | HOSPITAL LAB[facility]ORY | | | [...] + + | [facility] | [address] | [place] [address] | [phone] | | HOSPITAL LAB[facility]ATORY | | | [...] + + | [facility] | [address] | [place] [address] | [phone] | | HOSPITAL LAB[facility]ATORY | | | | + + + + + CBC with Differential (08/17/2018 5:10 AM PDT) + + + + + + | Component | Value | Ref Range | Performed | Pathologist | | | | | At | Signature | + + + + + + | WBC | 3.2 (L) | 4.3 - 10.4 K/uL | [facility] | | | | | | [facility] [...] + + | [facility] | [address] | [place] [address] | [phone] | | HOSPITAL LAB[facility]ATORY | | | [...] | mL/min/1.73m2 | [facility] | | | [facility] | RATE,ESTIMATED | | HOSPITAL | | | | mL/min/1.83z7Cmhu than | | LABORATORY | | | [...] + + | [place] [facility] | [address] | [place] [address] | [phone] | | HOSPITAL LAB[facility]ORY | | | [...] + + | [place] | [address] | [place] [address] | [phone] | | HOSPITAL LAB[facility]ATORY | | | [...] + + | [place] [facility] | [address] | [place] [address] | [phone] | | HOSPITAL LAB[facility]ATORY | | | [...] + + | [place] [facility] | [address] | [place] [address] | [phone] | | HOSPITAL LAB[facility]ORY | | | [...] + + | [facility] | [address] | [place] [address] | [phone] | | HOSPITAL LAB[facility]ORY | | | [...] + + | [facility] | [address] | [place] [address] | [phone] | | HOSPITAL LAB[facility]ATORY | | | [...] + + | [facility] | [address] | [place] [address] | [phone] | | HOSPITAL LAB[facility]ATORY | | | [...] + + | [facility] | [address] | [place] [address] | [phone] | | HOSPITAL LAB[facility]ATORY | | | [...] + + | [facility] | [address] | [place] [address] | [phone] | | HOSPITAL LAB[facility]ATORY | | | [...] + + | [facility] | [address] | [place] [address] | [phone] | | HOSPITAL LAB[facility]ATORY | | | [...] + + | [facility] | [address] | [place] [address] | [phone] | | HOSPITAL LAB[facility]ORY | | | [...] | mL/min/1.73m2 | [facility] | | | [facility] | | | HOSPITAL | | | [...] + + | [facility] | [address] | [place] [address] | [phone] | | HOSPITAL LAB[facility]ATORY | | | [...] + + | [facility] | [address] | [place] [address] | [phone] | | HOSPITAL LAB[facility]ORY | | | [...] + + | [facility] | [address] | [place] [address] | [phone] | | HOSPITAL LAB[facility]ORY | | | [...] + + | [place] [facility] | [address] | [place] [address] | [phone] | | HOSPITAL LAB[facility]ORY | | | [...] + + | [facility] | [address] | [place] [address] | [phone] | | HOSPITAL LAB[facility]ATORY | | | [...] + + | [facility] | [address] | [place] [address] | [phone] | | HOSPITAL LAB[facility]ORY | | | [...] + + | [facility] | [address] | [place] [address] | [phone] | | HOSPITAL LAB[facility]ATORY | | | [...] + + | [facility] | [address] | [place] [address] | [phone] | | HOSPITAL LAB[facility]ORY | | | [...] + + | [place] | [address] | [place] [address] | [phone] | | HOSPITAL LAB[facility]ORY | | | [...] + + | [facility] | [address] | [place] [address] | [phone] | | HOSPITAL LAB[facility]ORY | | | [...] + + | [facility] | [address] | [place] [address] | [phone] | | HOSPITAL LAB[facility]ORY | | | | + + + + + ECG 12 lead (08/15/2018 8:53 AM PDT) + + | Specimen | + + | | + + + + + | Narrative | Performed At | + + + | Heart Rate: 78 | [facility] | | bpmQRS Interval: 94 msQT Interval: 436 msQTC Interval: 497 msP Cody: | TRACEMASTER | | 18 degQRS Cody: -32 degT Wave Cody: 37 degP-R Interval: 244 msec- | | | ABNORMAL ECG -SINUS RHYTHMFIRST DEGREE AV BLOCKCONSIDER LEFT ATRIAL | | | ABNORMALITYLEFT AXIS DEVIATIONBORDERLINE PROLONGED QT INTERVAL | | |QRS Cody: -32 deg | | |T Wave Cody: 37 deg | | |P-R Interval: 244 [...] the attending | LABORATORY | | physician. Mnkm-aeb-irdyzsg drugs may cross react with some methods. [...] + + | [place] | [address] | [place] [address] | [phone] | | HOSPITAL LAB[facility]ORY | | | [...] - 1.030 | [place] | | | [place] | | | [facility] | | | [...] + + | [facility] | [address] | [place] [address] | [phone] | | HOSPITAL LAB[facility]ATORY | | | [...] + + | [facility] | [address] | [place] [address] | [phone] | | HOSPITAL LAB[facility]ORY | | | [...] + + | [facility] | [address] | [place] [address] | [phone] | | HOSPITAL LAB[facility] | | | [...] + + | [facility] | [address] | [place] [address] | [phone] | | HOSPITAL LAB[facility]ORY | | | [...] + + | [facility] | [address] | [place] [address] | [phone] | | HOSPITAL LAB[facility]ORY | | | [...] + + | [facility] | [address] | [place] [address] | [phone] | | HOSPITAL LAB[facility]ORY | | | [...] + + | [facility] | [address] | [place] [address] | [phone] | | HOSPITAL LAB[facility]ORY | | | [...] | cutoff point for the diagnosis of CA is 0.8 ng/mL for the Troponin I | | | method. | | + + + + + + + + | Performing | Address | City/State/Zipcode | Phone Number | | Organization | | | | + + + + + | [facility] | [address] | [place] [address] | [phone] | | HOSPITAL LAB[facility]ORY | | | [...] | mL/min/1.73m2 | [facility] | | | [facility] | RATE,ESTIMATED | | HOSPITAL | | | | mL/min/1.78p3Nwvw than | | LABORATORY | | | [...] + + | [facility] | [address] | [place] [address] | [phone] | | HOSPITAL LAB[facility]ORY | | | [...] + + | [facility] | [address] | [place] [address] | [phone] | | HOSPITAL LAB[facility]ATORY | | | [...] | | | | AC, NPO, Daytime [phone] Use | | | | | | | NIGHT DOSE for doses scheduled: | | | | | | | HS, 3AM, Nighttime 7078-9601 | | | | | | | [...] PDT | | | | | ONCE, [facility] 08/16/18 at 0845, For 1 | | [...] | | | | | dose on [facility] 08/18/18 at 1100 | | AM PDT [...] | | | | First dose on [facility] 08/18/18 at 1030 | | AM PDT [...] | | | | | dose on [facility] 08/18/18 at 2100, | | PM PDT [...]
--- OUTSIDE RECORDS SUMMARY | ~2019-05-03 | XMS | Encounter Summary ---
Demographics + + + | Address | [address] | | | [place] [address] | + + + | Home Phone [...] + + + + + | Isbaella Mni | ECON | [address] | | | | | [place] [address] | | + + + + + | Robson Min | ECON | Unknown | | + + + + + | Isabella Whitehead | ECON | Unknown | | + + + + + Care Team Providers + +------+ + | Care Fisher Hoop Net Name | Role | Phone | + [...] | | | Pulmonology | obstructive | [address] | [address] | | | | | pulmonary | [address] | [place], | | | | | disease, | [place] | [place] [address] | | | | | unspecified | [address] | Phone: | | | | | ([facility]) | [place] | [phone] | | | | | Procedures | [address] | Fax: | | | | | F/U | Phone: | [phone] | | | | | | [phone] | | +--------+--------+ + + + + Encounter Details +--------+---------+ + + + | Date | Type | Department | Care Team | Description | +--------+---------+ + + + | 05/26/ | Office | [facility] | [place], | COPD, mild (HCC) | | 2017 | Visit | PULMONARY [address] | MD [address] | (Primary Dx); | | | | [place], | [place], [place] | Alveolar | | | | [place] [address] | [address] | hypoventilation | | | | [phone] | | | +--------+---------+ + + + [...] quit within a month, and do it. [place] to your quit plan Talk to your [...] Track your triggers What gives you that D-smgo-f-cigarette feeling? List all the situations that make [...] wants to stop smoking. Date Last Reviewed: 10/18/201519999289-1052 [employer]. [address] [place] [address], [place] [address]. All righ ts reserved. This information is [...] Date Wrist pain Diabetes mellitus, type 2 ([facility]) Vitamin D deficiency Hypercholesterolemia Hypothyroidism Panic anxiety syndrome IBS (irritable bowel syndrome) Restless leg syndrome Urinary hesitancy Lumbago Nocturia Pyoderma gangreosum-LE Bipolar 1 disorder ([facility]) Hypertension Lymphedema Nausea and vomiting Reflux esophagitis GI bleeding Empyema lung ([facility]) 2005 right Knee pain CHRONIC TENSION [...] mouth 2 times daily., Disp: , Rfl: gzginvtgyr-sjjtily-qmxaeklo (BUTALBITAL COMPOUND/ASA) per tablet, One tablet by [...] 50,000 Units by mouth Once a w [place]., Disp: , Rfl: fluticasone-salmeterol (ADVAIR HFA) 45-21 [...] [place] | | | | | | [address] | | | | | | | | +--------+---------+ + + + | 07/26/ | Office | Pulmonology | [place]deep [place], | | | 2019 | Visit | | MD Cely GORE | | | | | | [place] | | | | | | [address] | | | | | | | | +--------+---------+ + + + documented as of this encounter Visit Diagnoses + + | Diagnosis | + + | COPD, mild (HCC) - Primary Chronic airway obstruction, not elsewhere classified | + + | Alveolar hypoventilation Other dyspnea and respiratory abnormality | + + documented in this encounter
--- OUTSIDE RECORDS SUMMARY | ~2019-05-03 | XMS | Encounter Summary ---
Demographics + + + | Address | [address] | | | [place] [address] | + + + | Home Phone [...] | | | | | [place] [address] | | + + + + + | Robson Min | ECON | Unknown | | + + + + + | Isabella Whitehead | ECON | Unknown | | + + + + + Care Team Providers + +------+ + | Care Psychologist Chief Name | Role | Phone | [...] | | | Pulmonology | obstructive | [address] | [address] | | | | | pulmonary | [address] | [place], | | | | | disease, | [place] | [place] [address] | | | | | unspecified | [address] | Phone: | | | | | ([facility]) | [place] | [phone] | | | | | Procedures | [address] | Fax: | | | | | F/U | Phone: | [phone] | | | | | | [phone] | | +--------+--------+ + + + + Encounter Details +--------+---------+ + + + | Date | Type | Department | Care Team | Description | +--------+---------+ + + + | 05/23/ | Office | [facility] | [place], | COPD, mild (HCC) | | 2016 | Visit | PULMONARY [address] | MD [address] | (Primary Dx); | | | | [place], | [place], [place] | Alveolar | | | | [place] [address] | [address] | hypoventilation; | | | | [phone] | | Tobacco use disorder | +--------+---------+ [...] find a support program: Free national quitline: 543-HNDT-GRY (961-250-2366). [facility] quit-smoking programs. [place] [employer]: (348.797.7800). [place] [employer] (086-421-6281). Support at home is important too. Nonsmokers can offer praise and encouragement. If the smo ker in your life finds it hard to quit, encourage them to keep trying! Kqzs-yck-aglmkfy medicines Nicotine replacement therapymay make quittingeasier. Certain [...] Air booklet from the National Cancer Institutehttp://smokefree.gov/si richar/default/files/pdf/cvnptsqd-yrb-ilm-accessible.pdf 1892-[address] [employer] [place] [address]. All righ ts reserved. This information is [...] pain Diabetes mellitus, type 2 ([facility]) Vitamin D deficiency Hypercholesterolemia Hypothyroidism Panic anxiety syndrome IBS (irritable bowel syndrome) Restless leg syndrome Urinary hesitancy Lumbago Nocturia Pyoderma gangreosum-LE Bipolar 1 disorder ([facility]) Hypertension Lymphedema Nausea and vomiting Reflux esophagitis GI bleeding Empyema lung ([facility]) 2005 right Knee pain CHRONIC TENSION HEADACHE [...] mouth 4 times daily., Disp: , Rfl: tqcjpdxbfm-uyekdhz-jyzjktgi (BUTALBITAL COMPOUND/ASA) per tablet, One tablet by [...] ed with antibiotics and prednisone. Today Ms. Mni was counseled regarding smoking cessation. She appears [...] [place] | | | | | | [address] | | | | | | | | +--------+---------+ + + + | 07/26/ | Office | Pulmonology | [place], | | | 2019 | Visit | | MD [address] | | | | | | [place] | | | | | | [address] | | | | | | | [...]
--- OUTSIDE RECORDS SUMMARY | ~2019-05-03 | XMS | Encounter Summary ---
Demographics + + + | Address | [address] | | | [place] [address] | + + + | Home Phone [...] | | | | | [place] [address] | | + + + + + Care Team Providers + +------+ + | Care Tenderizer Tender Name | Role | Phone | + +------+ + PCP | Unavailable | + +------+ + Encounter Details +--------+ + + + + | Date | Type | Department | Care Team | Description | +--------+ + + + + | 10/22/ | Respiratory | | Other, Faculty | | | 2006 | Therapy | | [phone] | | +--------+ + + + + [...] | | | | | Y | [facility] | | | | + + + [...] [facility] | [address] | [place], [place] | | | DIAGNOSTICS - | [address] | [address] | | | PULMONARY FUNCTION | | | | + + + + + documented in this encounter Visit Diagnoses Not on filedocumented in this encounter"
--- OUTSIDE RECORDS SUMMARY | ~2019-05-03 | XMS | Encounter Summary ---
Demographics + + + | Address | [address] | | | [place] [address] | + + + | Home Phone [...] | | | | | [place] [address] | | + + + + + Care Team Providers + +------+ + | Care Press Service Reader Name | Role | Phone | + +------+ + PCP | Unavailable | + +------+ + Encounter Details +--------+ + + + + | Date | Type | Department | Care Team | Description | +--------+ + + + + | 10/23/ | Respiratory | | Other, Faculty | | | 2006 | Therapy | | [phone] | | +--------+ + + + + [...] | | GAS/HUMIDIT | STANDBY. Yo Beckford, COMPUTATIONAL SCIENCES PROFESSOR | | | | | Y |Yo Beckford, COMPUTATIONAL SCIENCES PROFESSOR | | | | + + + [...] [facility] | [address] | [place], [place] | | | DIAGNOSTICS - | [address] | [address] | | | PULMONARY FUNCTION | | | | + + + + + documented in this encounter Visit Diagnoses Not on filedocumented in this encounter"
--- OUTSIDE RECORDS SUMMARY | ~2019-05-03 | XMS | Encounter Summary ---
Demographics + + + | Address | [address] | | | [place] [address] | + + + | Home Phone [...] | | | | | [place] [address] | | + + + + + Care Team Providers + +------+ + | Care Street Cleaner Name | Role | Phone | [...] | [address] | [address] | | | | | Mailcode: L475 | [place], [place] | | | | | [facility] | [address] | | | | | [place], [place] | [phone] | | | | | [address] | | | | | | [phone] | | | +--------+ + + + [...] | + + + + + | [facility] | [address] | [place] [address] | | | PATHOLOGY | [address] | | | + + + + + | [facility] | [address] [place] [address] | [place] [address] | | | PATHOLOGY | [address] [...] DEPARTMENT OF | [address] | [place] [address] | | | PATHOLOGY | [address] | | | + + + + + | [facility] DEPARTMENT OF | [address] | [place] [address] | | | PATHOLOGY | [address] [...] | + + + + + | [facility] DEPARTMENT OF | [address] | [place] [address] | | | PATHOLOGY | [address] | | | + + + + + | [facility] DEPARTMENT OF | [address] | [place] [address] | | | PATHOLOGY | [address] [...] | + + + + + | [facility] DEPARTMENT OF | [address] | [place] [address] | | | PATHOLOGY | [address] | | | + + + + + | [facility] DEPARTMENT OF | [address] | [place] [address] | | | PATHOLOGY | [address] [...] | + + + + + | [facility] | [address] | [place] [address] | | | PATHOLOGY | [address] | | | + + + + + | [facility] | [address] | [place] [address] | | | PATHOLOGY | [address] [...] MPV | 7.6 | 7.4 - 10.4 [place] | [facility] | | | | | | [...] | + + + + + | [facility] DEPARTMENT OF | [address] | [place] [address] | | | PATHOLOGY | [address] | | | + + + + + | [facility] DEPARTMENT OF | [address] | [place] [address] | | | PATHOLOGY | [address] [...] DEPARTMENT OF | [address] | [place] [address] | | | PATHOLOGY | [address] | | | + + + + + | [facility] DEPARTMENT OF | [address] | [place] [address] | | | PATHOLOGY | [address] [...] | + + + + + | [facility] DEPARTMENT OF | [address] | [place] [address] | | | PATHOLOGY | [address] | | | + + + + + | [facility] DEPARTMENT OF | [address] | [place] [address] | | | PATHOLOGY | [address] [...] DEPARTMENT OF | [address] | [place] [address] | | | PATHOLOGY | [address] | | | + + + + + | [facility] DEPARTMENT OF | [address] | [place] [address] | | | PATHOLOGY | [address] | | | + + + + + documented in this encounter Visit Diagnoses Not on filedocumented in this encounter"
--- OUTSIDE RECORDS SUMMARY | ~2019-05-03 | XMS | Encounter Summary ---
Demographics + + + | Address | [address] | | | [place] [address] | + + + | Home Phone | | + + + | Preferred Language | Unknown | + + + | Marital Status | Single | + + + | Religion Affiliation | CHR | + + + [...] | | | | | [place] [address] | | + + + + + Care Team Providers + +------+ + | Care Cloth Colorer Name | Role | Phone | + +------+ + PCP | Unavailable | + +------+ + Encounter Details +--------+ + + + + | Date | Type | Department | Care Team | Description | +--------+ + + + + | 11/03/ | Respiratory | | Other, Faculty | | | 2006 | Therapy | | [phone] | | +--------+ + + + + [...] [facility] | [address] | [place], [place] | | | DIAGNOSTICS - | [address] | [address] | | | PULMONARY FUNCTION | | | | + + + + + documented in this encounter Visit Diagnoses Not on filedocumented in this encounter"
--- OUTSIDE RECORDS SUMMARY | ~2019-05-03 | XMS | Encounter Summary ---
Demographics + + + | Address | [address] | | | [place] [address] | + + + | Home Phone [...] | | | | | [place] [address] | | + + + + + | Robson Min | ECON | Unknown | | + + + + + | Isabella Whitehead | ECON | Unknown | | + + + + + Care Team Providers + +------+ + | Care Unemployment Inspector Name | Role | Phone | [...] | | | | | disease, | [place], | [place] [address] | | | | | unspecified | [place] | Phone: | | | | | ([facility]) | [address] | [phone] | | | | | Obstructive | Phone: | Fax: | | | | | sleep apnea | [phone] | [phone] | | | | | (adult) | Fax: | | | | | | (pediatric) | [phone] | | | | | | Procedures [...] + + | 09/22/ | Office | [facility] [place] | Navdeep Grande, | Alveolar | | 2019 | Visit | [address]ULMONARY [address] | MD [address] | hypoventilation | | | | [place], | [place], [place] | (Primary Dx); COPD, | | | | [place] [address] | [id number] | moderate (HCC); | | | | [phone] | | Hypoxemia; COPD, | | | [...] information carefully each time. Talk to your printed circuit board pcb designer regarding the use of this medicine in children. Special care may be needed. What side effects may I notice from receiving this medicine? Side effects that you should report to your doctor or health certified caregiver as soon as p ossible: allergic reactions like skin rash, itching or hives, swelling of the face, lips, or tong ue anxious breathing problems suicidal thoughts or other mood changes trouble sleeping weight loss Side effects that usually do not require medical attention (report to your doctor or health certified caregiver if they continue or are bothersome): back [...] migraine Diabetes mellitus, type 2 ([facility]) Empyema lung ([facility]) 2006 right GI bleeding Hypercholesterolemia Hypertension Hypothyroidism IBS (irritable bowel syndrome) Knee pain Lymphedema Nausea and vomiting Nocturia Obesity Panic anxiety syndrome Pneumonia Pyoderma gangreosum-LE RA (rheumatoid arthritis) ([facility]) Followed by Dr. Becerra Rheumologist in [place] Reflux esophagitis Restless leg syndrome Urinary [...] 50,000 Units by mouth Once a w mary's igloo., Disp: , Rfl: fluticasone-salmeterol (ADVAIR HFA) 115-21 [...] daily., Disp: , Rfl: Respiratory Therapy Supplies [facility], Portable oxygen concentrator to provide O2 at [...] QUADR W/PRES (PED/ADOL/ADULT) MULTIDOSE 01/27/2017, 02/10/2018 INFLUENZA, [id number], UNSPECIFIED 03/09/2009 INFLUENZA, UNSPECIFIED FORMULATION 04/27/2000, 02/04/2011, [...] pack of cigarettes a day. 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
--- OUTSIDE RECORDS SUMMARY | ~2019-05-03 | XMS | Encounter Summary ---
Demographics + + + | Address | [address] | | | [place] [address] | + + + | Home Phone [...] | | | | | [place] [address] | | + + + + + | Robson Min | ECON | Unknown | | + + + + + | Isabella Whitehead | ECON | Unknown | | + + + + + Care Team Providers + +------+ + | Care Solar Installer Technician Name | Role | Phone | [...] + + | 06/05/ | Telephone | [facility] [place] | Navdeep Grande, | Results | | 2015 | | PULMONARY [address] | MD [address] | | | | | [place], | [place] | | | | | [place] [address] | [id number] | | | | | [phone] | | | +--------+ + + + [...] [place] | | | | | | [address] | | | | | | | | +--------+---------+ + + + | 07/26/ | Office | Pulmonology | Navdeep Grande, | | | 2019 | Visit | | MD [address] | | | | | | [place] | | | | | | [address] | | | | | | | [...]
--- OUTSIDE RECORDS SUMMARY | ~2019-05-03 | XMS | Encounter Summary ---
Demographics + + + | Address | [address] | | | [place] [address] | + + + | Home Phone | | + + + | Preferred Language | Unknown | + + + | Marital Status | Single | + + + | Amish Affiliation | Unknown | + + + | Race | Unknown | + + + | Ethnic Group | Unknown | + + + Author + + + | Author | [facility] | | | and [place] | + + + | Organization | [facility] | | [...] | | | | | [place] [address] | | + + + + + | Robson Escobar | ECON | Unknown | | + + + + + | Isabella Whitehead | ECON | Unknown | | + + + + + Care Team Providers + +------+ + | Care Supervisor Type Disk Quality Control Name | Role | Phone | + +------+ + | Herman Ba DO | PCP | | + +------+ + Encounter Details +--------+ + + + + | Date | Type | Department | Care Team | Description | +--------+ + + + + | 09/05/ | Hospital | [facility] | Betsey Connolly DO | Metabolic alkalosis; | | 2015 - | Encounter | [facility] | [address] | Diabetes mellitus, | | | | CLINICAL DECISION | [place] [address] | type 2 ([facility]); Drug | | 09/11/ | | [address] [place] [address] | [phone] | overdose, sequela; | | 2014 | | [place], [place] | | Hypokalemia; | | | | [address] | | Hypophosphatemia; | | | | [phone] | | Metabolic | | | | | | encephalopathy; | | | | | | Methamphetamine | | | | | | abuse; Obesity (BMI | | | | | | 30.0-34.9); RA | | | | | | (rheumatoid | | | | | | arthritis) ([facility]); | | | | | | Sinus tachycardia; | | | | | | Seizure ([facility]); Acute | | | | | | respiratory | | | | | | alkalosis; Metabolic | | | | | | acidosis; Acute | | | | | | respiratory failure | | | | | | ([facility]); Hypoxia; | | | | | [...] Summaries by Barrington Pride MD at 09/13/14 6728 Author: Barrington Pride MD Service: (none) Author Type: Physician Filed: 09/13/14 2561 Date of Service: 09/13/14 Status: Signed Photoflash Powder Mixer: Barrington Pride MD (Physician) [facility] Service: Hospitalist Discharge Summary Date of [...] up: Herman Ba DO [address] [place] [address] f/u post hospitalization and WBC to resolution [...] MG per tablet Refills: 0 Generic drug: awzzejfvmi-vqfnrqg-wjwcchgm fluticasone-salmeterol 250-50 MCG/DOSE QTY: 2 each Refills: [...] 0 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 You may get the following medications [...] | 0 | 10/08/19 | | | zrryaxsxsy-fvuaalf-p | every 6 hours as | | [...] 09/11/141850 Date of Service: 09/11/141843 Status: Signed Photoflash Powder Mixer: Lesa Rdz RN (Registered Nurse) Discharge instructions reviewed the patient, she is awaiting her mother to arrive from [facility] to drive her home. IJ line removed, dressing is clean, dry and intact. Will pass on to material handler 1st shift RN that discharge is completed and that pt only needs to be assisted to her [employer] vehicle when her mother arrives.Lesa Rdz RN onver james Transaction, Provider Unknown - 09/11/2014 4:37 PM PDT Progress Notes by Lesa Rdz RN at 09/11/14 1637 Author: Lesa Rdz RN Service: (none) Author Type: Registered Nurse Filed: 09/11/14 4544 Date of Service: 09/11/14 1637 Status: Signed Photoflash Powder Mixer: Lesa Rdz RN (Registered Nurse) Pt cleared for discharge by CRU.Lesa Rdz RN nuradha Botello MS CCC-STOCKROOM COORDINATOR - 09/11/2014 1:34 PM PDTFormatting of this note might be differen t from the original. Therapy Progress Note by Anuradha Mendez MA CCC-STOCKROOM COORDINATOR at 09/11/14 3602 Author: Anuradha Mendez MA CCC-STOCKROOM COORDINATOR Service: (none) Author Type: Speech and Language Pathologist Filed: 09/11/14 9774 Date of Service: 09/11/14 1334 Status: Signed Photoflash Powder Mixer: Anuradha Mendez MA CCC-STOCKROOM COORDINATOR (Speech and Language Pathologist) 09/11/14 1328 Swallowing [...] 09/11/141328 Date of Service: 09/11/141328 Status: Signed Photoflash Powder Mixer: Nik Duarte RPH (Pharmacist) Vancomycin day 2, est crcl 104.3ml/min, awaiting trough level at 0930 09/12 onver james Transaction, Provider Unknown - 09/11/2014 1:16 PM PDT Case Management by EMA De La Vega at 09/11/14 1316 Author: EMA De La Vega Service: (none) Author Type: Executive Sales Manager Filed: 09/11/140 Date of Service: 09/11/141315 Status: Signed Photoflash Powder Mixer: EMA De La Vega (Executive Sales Manager) Per MD. Pride, "Pt is Medically Cleared [...] Date of Service: 09/10/14 100 Status: Signed Photoflash Powder Mixer: Krystle Sparks RPH (Pharmacist) Clinical Pharmacy Note: [...] this note might be different from the [facility] dalia. Progress Notes by Jeffy Rahman DO at 09/10/14854 Author: Jeffy Rahman DO Service: Hospitalist Author Type: Physician Filed: 09/10/14900 Date of Service: 09/10/14854 Status: Signed Photoflash Powder Mixer: Jeffy Rahman DO (Physician) PROGRESS NOTE 09/10/2014 [...] (none) Author Type: Registered Dietitian Filed: 09/09/14 4560 Date of Service: 09/09/14 143 Status: Signed Photoflash Powder Mixer: Juan A Marcano RD (Registered Dietitian) 09/09/14 1431 Subjective Timepoint Follow up Pt c/o None [...] / Meals Diabetic maintenance, dental soft per STOCKROOM COORDINATOR. Micronutrient Intake Mineral / Element Intake Magnesium [...] Service: Hospitalist Author Type: Physician Filed: 09/09/14 8966 Date of Service: 09/09/14 1206 Status: Signed Photoflash Powder Mixer: Jeffy Rahman DO (Physician) PROGRESS NOTE 09/09/2014 [...] 09/09/14449 Date of Service: 09/09/14447 Status: Signed Photoflash Powder Mixer: Devi Vora RN (Registered Nurse) Pt is [...] 09/08/143 Date of Service: 09/08/141331 Status: Signed Photoflash Powder Mixer: Karina Mayer RN (Registered Nurse) Report given to MARTHA Deleon. Will transfer pt at this time. onver james Transaction, Provider Unknown - 09/08/2014 1:26 PM PDT Nurse Progress Note by Karina Mayer RN at 09/08/14 1326 Author: Karina Mayer RN Service: (none) Author Type: Registered Nurse Filed: 09/08/14 1327 Date of Service: 09/08/146 Status: Signed Photoflash Powder Mixer: Karina Mayer RN (Registered Nurse) Attempted to start peripheral IV. Attempt unsuccessful. onver james Transaction, Provider Unknown - 09/08/2014 1:04 PM PDT Case Management by EMA Verma at 09/08/14 1307 Author: EMA Verma Service: (none) Author Type: Executive Sales Manager Filed: 09/08/14 1315 Date of Service: 09/08/14 1304 Status: Signed Photoflash Powder Mixer: EMA Verma (Executive Sales Manager) 09/08/14 1300 Discharge Planning Evaluation Admitting Diagnosis OD Readmission [...] Prescription Plan Yes Name of Pharmacy [facility] [place] Anticipated Disposition Facility Type Home Met with: [...] a contract. Pt has a son in [place] and a sister in [place]. Await CRU to evoh. Patient's PCP is: HERMAN BA Patient's insurance:[place] [facility] Coverage concerns: Medication coverage/concerns: Lisandra's Bedside Delivery: Community resources utilized / needed: Assistance in transportation: Mother can transport Identification of any specific education / training: Barriers to Discharge / Alternative housing needed: Anticipated DCP: CRU to eval. Bella Diehl Laurie Esteban MS CCC-STOCKROOM COORDINATOR - 09/08/2014 10:45 AM PDTFormatting of this note might be different fr om the original. Therapy Progress Note by Laurie Steen MS CCC-STOCKROOM COORDINATOR at 09/08/14 1046 Author: Laurie Steen MS CCC-STOCKROOM COORDINATOR Service: (none) Author Type: Speech Therapist Filed: 09/08/14 8044 Date of Service: 09/08/141044 Status: Signed Photoflash Powder Mixer: Laurie Steen MS CCC-STOCKROOM COORDINATOR (Speech Therapist) 09/08/14 1048 Swallowing Assessment Eval Swallowing Evaluation Yes Initial [...] Swallow strategies;Diet tolerance monitoring;Patient/Family education Dysphagia Goals Residential Goals Safe/efficient oral intake Pt will have safe/efficient oral intake Regular diet;New/revised goal;With min cues Short Term Goals Tolerate diet Pt will tolerate diet Dental soft;New/revised goal;With min supervision evin Romie DEEJAY Salazar - 09/08/2014 6:44 AM PDTFormatting of this note might be different from the o riginal. Progress Notes by DEEJAY Astorga at 09/08/1444 Author: DEEJAY Astorga Service: Medical Lab Assistant Author Type: Nurse Practitioner Filed: 09/08/14 1248 Date of Service: 09/08/14643 Status: Signed Photoflash Powder Mixer: DEEJAY Astorga (Nurse Practitioner) [facility] Service: Medical Lab Assistant Progress Note [facility] Escobar 44 [facility] [...] by family members to the ED in [place] on 09/04. 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 Glucose was [...] acid, but again, level normal. Discussed with slitting machine operator helper at [facility]. Could possibly be d/t methamphetamine intoxication. Unknown [...] 09/08/148 Date of Service: 09/08/1422 Status: Signed Photoflash Powder Mixer: Beth Huang RN (Registered Nurse) RN talking with pt during midnight reassessment found pt to have increased RR and anxious.R N talked with pt about slow deep breathing, RN talked with pt and asked if she knew why she was in the hospital, pt stated that she remembers taking "a lot" of hydrocodone for a drug overdose, however doesn't remember how much. cabinetmaker maintenance notified. 1mg ativan ordered Q4 for anxiety at this time. Will continue to monitor. Beth Huang RN onver james Transaction, Provider Unknown - 09/07/2014 9:14 PM PDT Nurse Progress Note by Beth Huang RN at 09/07/142113 Author: Beth Huang RN Service: (none) Author Type: Registered Nurse Filed: 09/07/142114 Date of Service: 09/07/142113 Status: Signed Photoflash Powder Mixer: Beth Huang RN (Registered Nurse) Per day [...] Author: EMA Verma Service: (none) Author Type: Executive Sales Manager Filed: 09/07/141404 Date of Service: 09/07/141403 Status: Signed Photoflash Powder Mixer: EMA Verma (Executive Sales Manager) Placed t/c to pt's son Robson [phone] . He is on his way into [...] Notes by Tyler Edwards MD at 09/07/14 7992 Author: Tyler Edwards MD Service: Nephrology Author Type: Physician Filed: 09/07/14 1351 Date of Service: 09/07/14 1349 Status: Signed Photoflash Powder Mixer: Tyler Edwards MD (Physician) Noted Normalization of Cr and electrolytes. Bp is controlled and ACID BASE IS improved. Pt was not examined. Will Sign off at this time . Should be there any concerns , please call with questions or reconsult. asper Rollins MD - 09/07/2014 1:38 PM PDT Progress Notes by Casper Rollins MD at 09/07/14 7099 Author: Casper Rollins MD Service: Medical Lab Assistant Author Type: Medical Lab Assistant Filed: 09/07/14 9972 Date of Service: 09/07/147 Status: Signed Photoflash Powder Mixer: Casper Rollins MD (Physician) [facility] Service: Medical Lab Assistant Progress Note Kait Escobar 44 [facility] [...] by family members to the ED in [place] on 09/04. 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 Glucose was [...] acid, but again, level normal. Discussed with slitting machine operator helper at [facility]. Could possibly be d/t methamphetamine intoxication. Unknown [...] 1432 Date of Service: 09/06/141420 Status: Signed Photoflash Powder Mixer: Mary Mclean RN (Registered Nurse) Patient seen today by drawing hand for evaluation due to low Pablo. Today's [...] 1117 Date of Service: 09/06/141115 Status: Signed Photoflash Powder Mixer: Angela Saenz RD, CD (Registered Dietitian) 09/06/14 [...] Estimated Energy Needs Total Energy Estimated Needs 4038-3635 kcal/day Method for Estimating Needs 22-25 kcal/kg [...] 09/06/14420 Date of Service: 09/06/14419 Status: Signed Photoflash Powder Mixer: Justina Reyes, RN (Registered Nurse) Unable to complete pt admission documentation d/t pt family not present and pt is intubated . Thank you. onver james Transaction, Provider Unknown - 09/06/2014 2:08 AM PDT Progress Notes by Nelson Mayer RPH at 09/06/14207 Author: Nelson Mayer RPH Service: (none) Author Type: Pharmacist Filed: 09/06/14207 Date of Service: 09/06/14207 Status: Signed Photoflash Powder Mixer: Nelson Mayer RPH (Pharmacist) Note ccl 91.7ml/min [...] [place] | | | | | | [address] | | | | | | | [...] | | | Fingerstick | performed at [facility];[address] | | LAB | | | | [address];[place], [place] | | | | | | [address] | | | | + + + [...] | | | Fingerstick | performed at [facility];[address] | | LAB | | | | [address];[place] | | | | | | [address] | | | | + + + [...] | | | Fingerstick | performed at [facility];[address] | | LAB | | | | [address];[place], [place] | | | | | | [address] | | | | + + + [...] EXTERNAL | | | | performed at [facility];[address] | | LAB | | | | [address];[place] | | | | | | [address] | | | | + + + [...] | | | | | | at [facility];[address];[place] [address] | | | | + + + [...] K/uL | LAB | | | | [facility], [address] [facility] | | | | | | [place] | | | | | | [address] | | | | + + + + + + | RED CELL | 3.52 (L)Comment: Testing | 3.70 - 5.10 | EXTERNAL | | | COUNT | performed at [facility], [address] | M/uL | LAB | | | | [address], | | | | | | [place] [address] | | | | + + + + + + | Hgb | 11.4Comment: Testing | 11.3 - 15.5 | EXTERNAL | | | | performed at [facility], [address] | g/dL | LAB | | | | [address], | | | | | | [place] [address] | | | | + + + + + + | Hematocrit, | 34.9Comment: Testing | 34.0 - 46.0 % | EXTERNAL | | | POC | performed at [facility], [address] | | LAB | | | | [address], | | | | | | [place] [address] | | | | + + + + + + | MCV | 99.0Comment: Testing | 80.0 - 100.0 fl | EXTERNAL | | | | performed at [facility], [address] | | LAB | | | | [address], | | | | | | [place] [address] | | | | + + + + + + | MCH | 32.4Comment: Testing | 27.0 - 34.0 pg | EXTERNAL | | | | performed at [facility], [address] | | LAB | | | | [address], | | | | | | [place] [address] | | | | + + + + + + | MCHC | 32.7Comment: Testing | 32.0 - 35.5 | EXTERNAL | | | | performed at [facility], [address] | g/dL | LAB | | | | [address], | | | | | | [place] [address] | | | | + + + + + + | RDW-CV | 55.6 (H)Comment: Testing | 37 - 53 fl | EXTERNAL | | | | performed at [facility], [address] | | LAB | | | | [address], | | | | | | [place] [address] | | | | + + + + + + | Platelet | 250Comment: Testing | 150 - 400 K/uL | EXTERNAL | | | Count | performed at [facility], [address] | | LAB | | | Plasma | [address], | | | | | | [place] [address] | | | | + + + + + + | MPV | 8.8Comment: Testing | fl | EXTERNAL | | | | performed at [facility], [address] | | LAB | | | | [address], | | | | | | [place] [address] | | | | + + + + + + | Differentia | AUTOMATEDComment: | | EXTERNAL | | | l Type | Testing performed at | | LAB | | | | [facility], [address] | | | | | | [place] | | | | | | [address] | | | | + + + + + + | % Segmented | 65.20Comment: Testing | % | EXTERNAL | | | | performed at [facility], [address] | | LAB | | | Neutrophils | [address], | | | | | | [place] [address] | | | | + + + + + + | % | 19.01Comment: Testing | % | EXTERNAL | | | Lymphocytes | performed at [facility], [address] | | LAB | | | | [address], | | | | | | [place] [address] | | | | + + + + + + | % Monocytes | 13.64Comment: Testing | % | EXTERNAL | | | | performed at [facility], [address] | | LAB | | | | [address], | | | | | | [place] [address] | | | | + + + + + + | % | 1.60Comment: Testing | % | EXTERNAL | | | Eosinophils | performed at [facility], [address] | | LAB | | | [address], | | | | | | [place] [address] | | | | + + + + + + | % Basophils | 0.55Comment: Testing | % | EXTERNAL | | | | performed at [facility], [address] | | LAB | | | | [address], | | | | | | [place] [address] | | | | + + + + + + | Absolute | 7.60 (H)Comment: Testing | 1.90 - 7.40 | EXTERNAL | | | Segmented | performed at [facility], [address] | K/uL | LAB | | | Neutrophils | [address], | | | | | | [place] [address] | | | | + + + + + + | Absolute | 2.22Comment: Testing | 1.00 - 3.90 | EXTERNAL | | | Lymphocytes | performed at [facility], [address] | K/uL | LAB | | | | [address], | | | | | | [place] [address] | | | | + + + + + + | Absolute | 1.59 (H)Comment: Testing | 0.00 - 0.80 | EXTERNAL | | | Monocytes | performed at [facility], [address] | K/uL | LAB | | | | [address], | | | | | | [place] [address] | | | | + + + + + + | Absolute | 0.19Comment: Testing | 0.00 - 0.50 | EXTERNAL | | | Eosinophils | performed at [facility], [address] | K/uL | LAB | | | | [address], | | | | | | [place] [address] | | | | + + + + + + | Absolute | 0.07Comment: Testing | 0.00 - 0.10 | EXTERNAL | | | Basophils | performed at [facility], [address] | K/uL | LAB | | | | [address], | | | | | | [place] [address] | | | | + + + [...] EXTERNAL | | | | performed at [facility];[address] | | LAB | | | | [address];[place], [place] | | | | | | [address] | | | | + + + [...] EXTERNAL | | | | performed at [facility];[address] | | LAB | | | | [address];[place] | | | | | | [address] | | | | + + + [...] EXTERNAL | | | | performed at [facility];[address] | mmol/L | LAB | | | | [address];[place] | | | | | | [address] | | | | + + + + + + | K | 3.8Comment: Testing | 3.5 - 4.9 | EXTERNAL | | | | performed at [facility];[address] | mmol/L | LAB | | | | [address];[place] | | | | | | [address] | | | | + + + + + + | Cl | 101Comment: Testing | 99 - 109 mmol/L | EXTERNAL | | | | performed at [facility];[address] | | LAB | | | | [address];[place] | | | | | | [address] | | | | + + + + + + | CO2 | 29Comment: Testing | 23 - 32 mmol/L | EXTERNAL | | | | performed at [facility];[address] | | LAB | | | | [address];[place] | | | | | | [address] | | | | + + + + + + | Anion Gap | 11Comment: Testing | 5 - 20 mmol/L | EXTERNAL | | | | performed at [facility];[address] | | LAB | | | | [address];[place] | | | | | | [address] | | | | + + + + + + | Glucose, | 184 (H)Comment: Testing | 65 - 99 mg/dL | EXTERNAL | | | Fasting | performed at [facility];[address] | | LAB | | | | [address];[place] | | | | | | [address] | | | | + + + + + + | BUN | 10Comment: Testing | 8 - 25 mg/dL | EXTERNAL | | | | performed at [facility];[address] | | LAB | | | | [address];[place] | | | | | | [address] | | | | + + + + + + | Creatinine | 0.82Comment: Testing | 0.50 - 1.00 | EXTERNAL | | | | performed at [facility];[address] | mg/dL | LAB | | | | [address];[place] | | | | | | [address] | | | | + + + + + + | BUN/Creatin | 12Comment: Testing | | EXTERNAL | | | ine Ratio | performed at [facility];[address] | | LAB | | | | [address];[place] | | | | | | [address] | | | | + + + + + + | Calcium | 9.1Comment: Testing | 8.5 - 10.5 | EXTERNAL | | | | performed at [facility];[address] | mg/dL | LAB | | | | [address];[place] | | | | | | [address] | | | | + + + [...] | | | | | | at [facility];[address] [place] [address] | | | | | | [facility];[place] [address] | | | | + + + [...] | | | Fingerstick | performed at [facility];[address] | | LAB | | | | [address] [facility];[place], [place] | | | | | | [address] | | | | + + + [...] | | | Fingerstick | performed at [facility];[address] | | LAB | | | | [address];[place] | | | | | | [address] | | | | + + + [...] | | | | | [place] [address] | | | | + + + + + + | Clarity | CLEARComment: Testing | | EXTERNAL | | | | performed at [facility], [address] | | LAB | | | | [address], | | | | | | [place] [address] | | | | + + + + + + | Specific | 1.007Comment: Testing | 1.002 - 1.030 | EXTERNAL | | | [place] | performed at [facility], [address] | | LAB | | | | [address], | | | | | | [place] [address] | | | | + + + + + + | Leukocyte | SMALL (A)Comment: | | EXTERNAL | | | Esterase, | Testing performed at | | LAB | | | Urine | [facility], [address] | | | | | | [place] | | | | | | [address] | | | | + + + + + + | Nitrite, | NEGATIVEComment: Testing | | EXTERNAL | | | Urine | performed at [facility], [address] | | LAB | | | | [address], | | | | | | [place] [address] | | | | + + + + + + | Urobilinoge | 0.2Comment: Testing | mg/dL | EXTERNAL | | | n, Urine | performed at [facility], [address] | | LAB | | | [address], | | | | | | [place] [address] | | | | + + + + + + | Protein, | NEGATIVEComment: Testing | mg/dL | EXTERNAL | | | Urine | performed at [facility], [address] | | LAB | | | | [address], | | | | | | [place] [address] | | | | + + + + + + | pH, Urine | 7.0Comment: Testing | 5.0 - 8.0 | EXTERNAL | | | | performed at [facility], [address] | | LAB | | | | [address], | | | | | | [place] [address] | | | | + + + + + + | Blood, | MODERATE (A)Comment: | | EXTERNAL | | | Urine | Testing performed at | | LAB | | | | [facility], [address] | | | | | | [place] | | | | | | [address] | | | | + + + + + + | Ketones | NEGATIVEComment: Testing | mg/dL | EXTERNAL | | | | performed at [facility], [address] | | LAB | | | | [address], | | | | | | [place] [address] | | | | + + + + + + | Bilirubin, | NEGATIVEComment: Testing | | EXTERNAL | | | Urine | performed at [facility], [address] | | LAB | | | | [address], | | | | | | [place] [address] | | | | + + + + + + | Glucose, | NEGATIVEComment: Testing | mg/dL | EXTERNAL | | | Urine | performed at [facility], [address] | | LAB | | | | [address], | | | | | | [place] [address] | | | | + + + [...] | | | | | [place] [address] | | | | + + + + + + | RBC, UA | 1-5Comment: Testing | 0 - 5 /hpf | EXTERNAL | | | | performed at [facility], [address] | | LAB | | | | [address], | | | | | | [place] [address] | | | | + + + + + + | Epithelial | 16-25Comment: Testing | /lpf | EXTERNAL | | | Cells | performed at [facility], [address] | | LAB | | | | [address], | | | | | | [place] [address] | | | | + + + + + + | Bacteria, | 1+ (A)Comment: Testing | | EXTERNAL | | | UA | performed at [facility], [address] | | LAB | | | | [address], | | | | | | [place] [address] | | | | + + + + + + | Urinalysis | LESS THAN 10 ML | | EXTERNAL | | | Comments | SPECIMENComment: CULTURE | | LAB | | | | TO FOLLOWTesting | | | | | | performed at [facility], [address] | | | | | | [address], | | | | | | [place] [address] | | | | + + + [...] GROWTH | | | Testing performed at [facility], | | | [address] [place] [address] | | + + + + +---------+ [...] | | | Fingerstick | performed at [facility];[address] | | LAB | | | | [address];[place], [place] | | | | | | [address] | | | | + + + [...] AC | | | Testing performed at [facility];[address] | [address];[place] [address] CULTURE | | | NO GROWTH | | | Testing performed at [facility], [address] [place] [address], [place], [place] | | | [address] | | + + + + +---------+ [...] AC | | | Testing performed at [facility];[address];[place] [address] CULTURE | | | NO GROWTH | | | Testing performed at [facility], [address] [facility], [place], [place] | | | [address] | | + + + + +---------+ [...] | | | | [facility], [address] [facility] | | | | | | [place] [...] | | | | | [place] [address] | | | | + + + + + + | Hgb | 11.8Comment: Testing | 11.3 - 15.5 | EXTERNAL | | | | performed at [facility], [address] | g/dL | LAB | | | | [address], | | | | | | [place] [address] | | | | + + + + + + | Hematocrit, | 36.2Comment: Testing | 34.0 - 46.0 % | EXTERNAL | | | POC | performed at [facility], [address] | | LAB | | | | [address], | | | | | | [place] [address] | | | | + + + + + + | MCV | 98.8Comment: Testing | 80.0 - 100.0 fl | EXTERNAL | | | | performed at [facility], [address] | | LAB | | | | [address], | | | | | | [place] [address] | | | | + + + + + + | MCH | 32.1Comment: Testing | 27.0 - 34.0 pg | EXTERNAL | | | | performed at [facility], [address] | | LAB | | | | [address], | | | | | | [place] [address] | | | | + + + + + + | MCHC | 32.5Comment: Testing | 32.0 - 35.5 | EXTERNAL | | | | performed at [facility], [address] | g/dL | LAB | | | | [address], | | | | | | [place] [address] | | | | + + + + + + | RDW-CV | 53.8 (H)Comment: Testing | 37 - 53 fl | EXTERNAL | | | | performed at [facility], [address] | | LAB | | | | [address], | | | | | | [place] [address] | | | | + + + + + + | Platelet | 267Comment: Testing | 150 - 400 K/uL | EXTERNAL | | | Count | performed at [facility], [address] | | LAB | | | Plasma | [address], | | | | | | [place] [address] | | | | + + + + + + | MPV | 8.2Comment: Testing | fl | EXTERNAL | | | | performed at [facility], [address] | | LAB | | | | [address], | | | | | | [place] [address] | | | | + + + + + + | Differentia | AUTOMATEDComment: | | EXTERNAL | | | l Type | Testing performed at | | LAB | | | | [facility], [address] | | | | | | [place] | | | | | | [address] | | | | + + + + + + | % Segmented | 69.45Comment: Testing | % | EXTERNAL | | | | performed at [facility], [address] | | LAB | | | Neutrophils | [address], | | | | | | [place] [address] | | | | + + + + + + | % | 17.19Comment: Testing | % | EXTERNAL | | | Lymphocytes | performed at [facility], [address] | | LAB | | | | [address], | | | | | | [place] [address] | | | | + + + + + + | % Monocytes | 11.54Comment: Testing | % | EXTERNAL | | | | performed at [facility], [address] | | LAB | | | | [address], | | | | | | [place] [address] | | | | + + + + + + | % | 1.49Comment: Testing | % | EXTERNAL | | | Eosinophils | performed at [facility], [address] | | LAB | | | | [address], | | | | | | [place] [address] | | | | + + + + + + | % Basophils | 0.33Comment: Testing | % | EXTERNAL | | | | performed at [facility], [address] | | LAB | | | | [address], | | | | | | [place] [address] | | | | + + + + + + | Absolute | 8.64 (H)Comment: Testing | 1.90 - 7.40 | EXTERNAL | | | Segmented | performed at [facility], [address] | [address]/uL | LAB | | | Neutrophils | [address], | | | | | | [place] [address] | | | | + + + + + + | Absolute | 2.14Comment: Testing | 1.00 - 3.90 | EXTERNAL | | | Lymphocytes | performed at [facility], [address] | K/uL | LAB | | | | [address], | | | | | | [place] [address] | | | | + + + + + + | Absolute | 1.44 (H)Comment: Testing | 0.00 - 0.80 | EXTERNAL | | | Monocytes | performed at [facility], [address] | K/uL | LAB | | | | [address], | | | | | | [place] [address] | | | | + + + + + + | Absolute | 0.19Comment: Testing | 0.00 - 0.50 | EXTERNAL | | | Eosinophils | performed at [facility], [address] | K/uL | LAB | | | | [address], | | | | | | [place] [address] | | | | + + + + + + | Absolute | 0.04Comment: Testing | 0.00 - 0.10 | EXTERNAL | | | Basophils | performed at [facility], [address] | K/uL | LAB | | | | [address], | | | | | | [place] [address] | | | | + + + [...] EXTERNAL | | | | performed at [facility], [address] | | LAB | | | | [address], | | | | | | [place] [address] | | | | + + + [...] EXTERNAL | | | | performed at [facility], [address] | | LAB | | | | [address], | | | | | | [place] [address] | | | | + + + [...] | | | | | [place] [address] | | | | + + + + + + | K | 3.8Comment: Testing | 3.5 - 4.9 | EXTERNAL | | | | performed at [facility], [address] | mmol/L | LAB | | | | [address], | | | | | | [place] [address] | | | | + + + + + + | Cl | 99Comment: Testing | 99 - 109 mmol/L | EXTERNAL | | | | performed at [facility], [address] | | LAB | | | | [address], | | | | | | [place] [address] | | | | + + + + + + | CO2 | 30Comment: Testing | 23 - 32 mmol/L | EXTERNAL | | | | performed at [facility], [address] | | LAB | | | | [address], | | | | | | [place] [address] | | | | + + + + + + | Anion Gap | 7Comment: Testing | 5 - 20 mmol/L | EXTERNAL | | | | performed at [facility], [address] | | LAB | | | | [address], | | | | | | [place] [address] | | | | + + + + + + | Glucose, | 222 (H)Comment: Testing | 65 - 99 mg/dL | EXTERNAL | | | Fasting | performed at [facility], [address] | | LAB | | | | [address], | | | | | | [place] [address] | | | | + + + + + + | BUN | 12Comment: Testing | 8 - 25 mg/dL | EXTERNAL | | | | performed at [facility], [address] | | LAB | | | | [address], | | | | | | [place] [address] | | | | + + + + + + | Creatinine | 0.83Comment: Testing | 0.50 - 1.00 | EXTERNAL | | | | performed at [facility], [address] | mg/dL | LAB | | | | [address], | | | | | | [place] [address] | | | | + + + + + + | BUN/Creatin | 14Comment: Testing | | EXTERNAL | | | ine Ratio | performed at [facility], [address] | | LAB | | | | [address], | | | | | | [place] [address] | | | | + + + + + + | Calcium | 9.0Comment: Testing | 8.5 - 10.5 | EXTERNAL | | | | performed at [facility], [address] | mg/dL | LAB | | | | [address], | | | | | | [place] [address] | | | | + + + [...] | | | | | | at [facility], [address] | | | | | | [address], | | | | | | [place] [address] | | | | + + + [...] | | | Fingerstick | performed at [facility];[address] | | LAB | | | | [address];[place] | | | | | | [address] | | | | + + + [...] | | | Fingerstick | performed at [facility] | | LAB | | | | [address];[place] | | | | | | [address] | | | | + + + [...] | | | Fingerstick | performed at [facility];[address] | | LAB | | | | [address];[place], [place] | | | | | | [address] | | | | + + [...] | | | Fingerstick | performed at [facility];[address] | | LAB | | | | [address];[place] | | | | | | [address] | | | | + + + [...] | | | Fingerstick | performed at [facility];[address] | | LAB | | | | [address];[place] | | | | | | [address] | | | | + + + [...] EXTERNAL | | | | performed at [facility], [address] | K/uL | LAB | | | | [address], | | | | | | [place] [address] | | | | + + + + + + | RED CELL | 3.65 (L)Comment: Testing | 3.70 - 5.10 | EXTERNAL | | | COUNT | performed at [facility], [address] | M/uL | LAB | | | | [address], | | | | | | [place] [address] | | | | + + + + + + | Hgb | 11.8Comment: Testing | 11.3 - 15.5 | EXTERNAL | | | | performed at [facility], [address] | g/dL | LAB | | | | [address], | | | | | | [place] [address] | | | | + + + + + + | Hematocrit, | 36.1Comment: Testing | 34.0 - 46.0 % | EXTERNAL | | | POC | performed at [facility], [address] | | LAB | | | | [address], | | | | | | [place] [address] | | | | + + + + + + | MCV | 98.7Comment: Testing | 80.0 - 100.0 fl | EXTERNAL | | | | performed at [facility], [address] | | LAB | | | | [address], | | | | | | [place] [address] | | | | + + + + + + | MCH | 32.4Comment: Testing | 27.0 - 34.0 pg | EXTERNAL | | | | performed at [facility], [address] | | LAB | | | | [address], | | | | | | [place] [address] | | | | + + + + + + | MCHC | 32.8Comment: Testing | 32.0 - 35.5 | EXTERNAL | | | | performed at [facility], [address] | g/dL | LAB | | | | [address], | | | | | | [place] [address] | | | | + + + + + + | RDW-CV | 53.8 (H)Comment: Testing | 37 - 53 fl | EXTERNAL | | | | performed at [facility], [address] | | LAB | | | | [address], | | | | | | [place] [address] | | | | + + + + + + | Platelet | 280Comment: Testing | 150 - 400 K/uL | EXTERNAL | | | Count | performed at [facility], [address] | | LAB | | | Plasma | [address], | | | | | | [place] [address] | | | | + + + + + + | MPV | 7.8Comment: Testing | fl | EXTERNAL | | | | performed at [facility], [address] | | LAB | | | | [address], | | | | | | [place] [address] | | | | + + + + + + | Differentia | AUTOMATEDComment: | | EXTERNAL | | | l Type | Testing performed at | | LAB | | | | [facility], [address] | | | | | | [place] | | | | | | [address] | | | | + + + + + + | % Segmented | 62.96Comment: Testing | % | EXTERNAL | | | | performed at [facility], [address] | | LAB | | | Neutrophils | [address], | | | | | | [place] [address] | | | | + + + + + + | % | 22.27Comment: Testing | % | EXTERNAL | | | Lymphocytes | performed at [facility], [address] | | LAB | | | | [address], | | | | | | [place] [address] | | | | + + + + + + | % Monocytes | 11.29Comment: Testing | % | EXTERNAL | | | | performed at [facility], [address] | | LAB | | | | [address], | | | | | | [place] [address] | | | | + + + + + + | % | 3.04Comment: Testing | % | EXTERNAL | | | Eosinophils | performed at [facility], [address] | | LAB | | | | [address], | | | | | | [place] [address] | | | | + + + + + + | % Basophils | 0.44Comment: Testing | % | EXTERNAL | | | | performed at [facility], [address] | | LAB | | | | [address], | | | | | | [place] [address] | | | | + + + + + + | Absolute | 6.07Comment: Testing | 1.90 - 7.40 | EXTERNAL | | | Segmented | performed at [facility], [address] | K/uL | LAB | | | Neutrophils | [address], | | | | | | [place] [address] | | | | + + + + + + | Absolute | 2.15Comment: Testing | 1.00 - 3.90 | EXTERNAL | | | Lymphocytes | performed at [facility], [address] | K/uL | LAB | | | | [address], | | | | | | [place] [address] | | | | + + + + + + | Absolute | 1.09 (H)Comment: Testing | 0.00 - 0.80 | EXTERNAL | | | Monocytes | performed at [facility], [address] | K/uL | LAB | | | | [address], | | | | | | [place] [address] | | | | + + + + + + | Absolute | 0.29Comment: Testing | 0.00 - 0.50 | EXTERNAL | | | Eosinophils | performed at [facility], [address] | K/uL | LAB | | | | [address], | | | | | | [place] [address] | | | | + + + + + + | Absolute | 0.04Comment: Testing | 0.00 - 0.10 | EXTERNAL | | | Basophils | performed at [facility], [address] | K/uL | LAB | | | | [address], | | | | | | [place] [address] | | | | + + + [...] EXTERNAL | | | | performed at [facility], [address] | | LAB | | | | [address], | | | | | | [place] [address] | | | | + + + [...] EXTERNAL | | | | performed at [facility], [address] | | LAB | | | | [address], | | | | | | [place] [address] | | | | + + + [...] | | | | | [place] [address] | | | | + + + + + + | K | 4.3Comment: Testing | 3.5 - 4.9 | EXTERNAL | | | | performed at [facility], [address] | mmol/L | LAB | | | | [address], | | | | | | [place] [address] | | | | + + + + + + | Cl | 99Comment: Testing | 99 - 109 mmol/L | EXTERNAL | | | | performed at [facility], [address] | | LAB | | | | [address], | | | | | | [place] [address] | | | | + + + + + + | CO2 | 28Comment: Testing | 23 - 32 mmol/L | EXTERNAL | | | | performed at [facility], [address] | | LAB | | | | [address], | | | | | | [place] [address] | | | | + + + + + + | Anion Gap | 10Comment: Testing | 5 - 20 mmol/L | EXTERNAL | | | | performed at [facility], [address] | | LAB | | | | [address], | | | | | | [place] [address] | | | | + + + + + + | Glucose, | 174 (H)Comment: Testing | 65 - 99 mg/dL | EXTERNAL | | | Fasting | performed at [facility], [address] | | LAB | | | | [address], | | | | | | [place] [address] | | | | + + + + + + | BUN | 15Comment: Testing | 8 - 25 mg/dL | EXTERNAL | | | | performed at [facility], [address] | | LAB | | | | [address], | | | | | | [place] [address] | | | | + + + + + + | Creatinine | 0.77Comment: Testing | 0.50 - 1.00 | EXTERNAL | | | | performed at [facility], [address] | mg/dL | LAB | | | | [address], | | | | | | [place] [address] | | | | + + + + + + | BUN/Creatin | 19Comment: Testing | | EXTERNAL | | | ine Ratio | performed at [facility], [address] | | LAB | | | | [address], | | | | | | [place] [address] | | | | + + + + + + | Calcium | 8.9Comment: Testing | 8.5 - 10.5 | EXTERNAL | | | | performed at [facility], [address] | mg/dL | LAB | | | | [address], | | | | | | [place] [address] | | | | + + + [...] [address], | | | | | | [place] [address] | | | | + + + [...] | | | Fingerstick | performed at [facility] | | LAB | | | | [address];[place], [place] | | | | | | [address] | | | | + + + [...] | | | Fingerstick | performed at [facility];[address] | | LAB | | | | [address];[place] | | | | | | [address] | | | | + + + [...] EXTERNAL | | | | performed at [facility];[address] | | LAB | | | | [address];[place] | | | | | | [address] | | | | + + + [...] | | | Fingerstick | performed at [facility];[address] | | LAB | | | | [address];[place], [place] | | | | | | [address] | | | | + + + [...] | | | Fingerstick | performed at [facility];[address] | | LAB | | | | [address];[place] | | | | | | [address] | | | | + + + [...] EXTERNAL | | | | performed at [facility], [address] | K/uL | LAB | | | | [address], | | | | | | [place] [address] | | | | + + + + + + | RED CELL | 3.62 (L)Comment: Testing | 3.70 - 5.10 | EXTERNAL | | | COUNT | performed at [facility], [address] | M/uL | LAB | | | | [address], | | | | | | [place] [address] | | | | + + + + + + | Hgb | 11.8Comment: Testing | 11.3 - 15.5 | EXTERNAL | | | | performed at [facility], [address] | g/dL | LAB | | | | [address], | | | | | | [place] [address] | | | | + + + + + + | Hematocrit, | 36.1Comment: Testing | 34.0 - 46.0 % | EXTERNAL | | | POC | performed at [facility], [address] | | LAB | | | | [address], | | | | | | [place] [address] | | | | + + + + + + | MCV | 99.7Comment: Testing | 80.0 - 100.0 fl | EXTERNAL | | | | performed at [facility], [address] | | LAB | | | | [address], | | | | | | [place] [address] | | | | + + + + + + | MCH | 32.5Comment: Testing | 27.0 - 34.0 pg | EXTERNAL | | | | performed at [facility], [address] | | LAB | | | | [address], | | | | | | [place] [address] | | | | + + + + + + | MCHC | 32.6Comment: Testing | 32.0 - 35.5 | EXTERNAL | | | | performed at [facility], [address] | g/dL | LAB | | | | [address], | | | | | | [place] [address] | | | | + + + + + + | RDW-CV | 54.7 (H)Comment: Testing | 37 - 53 fl | EXTERNAL | | | | performed at [facility], [address] | | LAB | | | | [address], | | | | | | [place] [address] | | | | + + + + + + | Platelet | 289Comment: Testing | 150 - 400 K/uL | EXTERNAL | | | Count | performed at [facility], [address] | | LAB | | | Plasma | [address], | | | | | | [place] [address] | | | | + + + + + + | MPV | 7.4Comment: Testing | fl | EXTERNAL | | | | performed at [facility], [address] | | LAB | | | | [address], | | | | | | [place] [address] | | | | + + + + + + | Differentia | AUTOMATEDComment: | | EXTERNAL | | | l Type | Testing performed at | | LAB | | | | [facility], [address] | | | | | | [place] | | | | | | [address] | | | | + + + + + + | % Segmented | 53.91Comment: Testing | % | EXTERNAL | | | | performed at [facility], [address] | | LAB | | | Neutrophils | [address], | | | | | | [place], [place] [address] | | | | + + + + + + | % | 26.30Comment: Testing | % | EXTERNAL | | | Lymphocytes | performed at [facility], [address] | | LAB | | | | [address], | | | | | | [place], [place] [address] | | | | + + + + + + | % Monocytes | 15.80Comment: Testing | % | EXTERNAL | | | | performed at [facility], [address] | | LAB | | | | [address], | | | | | | [place] [address] | | | | + + + + + + | % | 3.35Comment: Testing | % | EXTERNAL | | | Eosinophils | performed at [facility], [address] | | LAB | | | | [address], | | | | | | [place] [address] | | | | + + + + + + | % Basophils | 0.64Comment: Testing | % | EXTERNAL | | | | performed at [facility], [address] | | LAB | | | | [address], | | | | | | [place] [address] | | | | + + + + + + | Absolute | 5.40Comment: Testing | 1.90 - 7.40 | EXTERNAL | | | Segmented | performed at [facility], [address] | K/uL | LAB | | | Neutrophils | [address], | | | | | | [place] [address] | | | | + + + + + + | Absolute | 2.63Comment: Testing | 1.00 - 3.90 | EXTERNAL | | | Lymphocytes | performed at [facility], [address] | K/uL | LAB | | | | [address], | | | | | | [place] [address] | | | | + + + + + + | Absolute | 1.58 (H)Comment: Testing | 0.00 - 0.80 | EXTERNAL | | | Monocytes | performed at [facility], [address] | K/uL | LAB | | | | [address], | | | | | | [place] [address] | | | | + + + + + + | Absolute | 0.34Comment: Testing | 0.00 - 0.50 | EXTERNAL | | | Eosinophils | performed at [facility], [address] | K/uL | LAB | | | | [address], | | | | | | [place] [address] | | | | + + + + + + | Absolute | 0.06Comment: Testing | 0.00 - 0.10 | EXTERNAL | | | Basophils | performed at [facility], [address] | K/uL | LAB | | | | [address], | | | | | | [place] [address] | | | | + + + [...] EXTERNAL | | | | performed at [facility], [address] | | LAB | | | | [address], | | | | | | [place] [address] | | | | + + + [...] EXTERNAL | | | | performed at [facility], [address] | | LAB | | | | [address], | | | | | | [place] [address] | | | | + + + [...] | | | | | [place] [address] | | | | + + + + + + | K | 4.4Comment: Testing | 3.5 - 4.9 | EXTERNAL | | | | performed at [facility], [address] | mmol/L | LAB | | | | [address], | | | | | | [place] [address] | | | | + + + + + + | Cl | 106Comment: Testing | 99 - 109 mmol/L | EXTERNAL | | | | performed at [facility], [address] | | LAB | | | | [address], | | | | | | [place] [address] | | | | + + + + + + | CO2 | 27Comment: Testing | 23 - 32 mmol/L | EXTERNAL | | | | performed at [facility], [address] | | LAB | | | | [address], | | | | | | [place] [address] | | | | + + + + + + | Anion Gap | 10Comment: Testing | 5 - 20 mmol/L | EXTERNAL | | | | performed at [facility], [address] | | LAB | | | | [address], | | | | | | [place] [address] | | | | + + + + + + | Glucose, | 129 (H)Comment: Testing | 65 - 99 mg/dL | EXTERNAL | | | Fasting | performed at [facility], [address] | | LAB | | | | [address], | | | | | | [place] [address] | | | | + + + + + + | BUN | 16Comment: Testing | 8 - 25 mg/dL | EXTERNAL | | | | performed at [facility], [address] | | LAB | | | | [address], | | | | | | [place] [address] | | | | + + + + + + | Creatinine | 0.82Comment: Testing | 0.50 - 1.00 | EXTERNAL | | | | performed at [facility], [address] | mg/dL | LAB | | | | [address], | | | | | | [place] [address] | | | | + + + + + + | BUN/Creatin | 20Comment: Testing | | EXTERNAL | | | ine Ratio | performed at [facility], [address] | | LAB | | | | [address], | | | | | | [place] [address] | | | | + + + + + + | Calcium | 8.9Comment: Testing | 8.5 - 10.5 | EXTERNAL | | | | performed at [facility], [address] | mg/dL | LAB | | | | [address], | | | | | | [place] [address] | | | | + + + [...] | | | | | [place] [address] | | | | + + + [...] | | | Fingerstick | performed at [facility];[address] | | LAB | | | | [address];[place], [place] | | | | | | [address] | | | | + + + [...] | | | Fingerstick | performed at [facility];[address] | | LAB | | | | [address];[place] | | | | | | [address] | | | | + + + [...] | | | Fingerstick | performed at [facility];[address] | | LAB | | | | [address];[place], [place] | | | | | | [address] | | | | + + + [...] | | | Fingerstick | performed at [facility] | | LAB | | | | [address];[place] | | | | | | [address] | | | | + + + [...] EXTERNAL | | | | performed at [facility];[address] | mmol/L | LAB | | | | [address];[place], [place] | | | | | | [address] | | | | + + + [...] EXTERNAL | | | | performed at [facility] | | LAB | | | | [address];[place], [place] | | | | | | [address] | | | | + + + [...] | | | Fingerstick | performed at [facility];[address] | | LAB | | | | [address];[place], [place] | | | | | | [address] | | | | + + + [...] | | | Fingerstick | performed at [facility];[address] | | LAB | | | | [address];[place] | | | | | | [address] | | | | + + + [...] | | | Fingerstick | performed at [facility];[address] | | LAB | | | | [address];[place] | | | | | | [address] | | | | + + + [...] | | | Fingerstick | performed at [facility];[address] | | LAB | | | | [address];[place], [place] | | | | | | [address] | | | | + + + [...] EXTERNAL | | | | performed at [facility], [address] | K/uL | LAB | | | | [address], | | | | | | [place] [address] | | | | + + + + + + | RED CELL | 3.42 (L)Comment: Testing | 3.70 - 5.10 | EXTERNAL | | | COUNT | performed at [facility], [address] | M/uL | LAB | | | | [address], | | | | | | [place] [address] | | | | + + + + + + | Hgb | 11.1 (L)Comment: Testing | 11.3 - 15.5 | EXTERNAL | | | | performed at [facility], [address] | g/dL | LAB | | | | [address], | | | | | | [place] [address] | | | | + + + + + + | Hematocrit, | 33.5 (L)Comment: Testing | 34.0 - 46.0 % | EXTERNAL | | | POC | performed at [facility], [address] | | LAB | | | | [address], | | | | | | [place] [address] | | | | + + + + + + | MCV | 97.9Comment: Testing | 80.0 - 100.0 fl | EXTERNAL | | | | performed at [facility], [address] | | LAB | | | | [address], | | | | | | [place] [address] | | | | + + + + + + | MCH | 32.3Comment: Testing | 27.0 - 34.0 pg | EXTERNAL | | | | performed at [facility], [address] | | LAB | | | | [address], | | | | | | [place] [address] | | | | + + + + + + | MCHC | 33.0Comment: Testing | 32.0 - 35.5 | EXTERNAL | | | | performed at [facility], [address] | g/dL | LAB | | | | [address], | | | | | | [place] [address] | | | | + + + + + + | RDW-CV | 55.6 (H)Comment: Testing | 37 - 53 fl | EXTERNAL | | | | performed at [facility], [address] | | LAB | | | | [address], | | | | | | [place] [address] | | | | + + + + + + | Platelet | 321Comment: Testing | 150 - 400 K/uL | EXTERNAL | | | Count | performed at [facility], [address] | | LAB | | | Plasma | [address], | | | | | | [place] [address] | | | | + + + + + + | MPV | 7.4Comment: Testing | fl | EXTERNAL | | | | performed at [facility], [address] | | LAB | | | | [address], | | | | | | [place] [address] | | | | + + + + + + | Differentia | AUTOMATEDComment: | | EXTERNAL | | | l Type | Testing performed at | | LAB | | | | [facility], [address] | | | | | | [place] | | | | | | [address] | | | | + + + + + + | % Segmented | 51.00Comment: Testing | % | EXTERNAL | | | | performed at [facility], [address] | | LAB | | | Neutrophils | [address], | | | | | | [place] [address] | | | | + + + + + + | % | 30.62Comment: Testing | % | EXTERNAL | | | Lymphocytes | performed at [facility], [address] | | LAB | | | | [address], | | | | | | [place] [address] | | | | + + + + + + | % Monocytes | 16.25Comment: Testing | % | EXTERNAL | | | | performed at [facility], [address] | | LAB | | | | [address], | | | | | | [place] [address] | | | | + + + + + + | % | 1.79Comment: Testing | % | EXTERNAL | | | Eosinophils | performed at [facility], [address] | | LAB | | | | [address], | | | | | | [place] [address] | | | | + + + + + + | % Basophils | 0.34Comment: Testing | % | EXTERNAL | | | | performed at [facility], [address] | | LAB | | | | [address], | | | | | | [place] [address] | | | | + + + + + + | Absolute | 4.68Comment: Testing | 1.90 - 7.40 | EXTERNAL | | | Segmented | performed at [facility], [address] | K/uL | LAB | | | Neutrophils | [address], | | | | | | [place] [address] | | | | + + + + + + | Absolute | 2.81Comment: Testing | 1.00 - 3.90 | EXTERNAL | | | Lymphocytes | performed at [facility], [address] | K/uL | LAB | | | | [address], | | | | | | [place] [address] | | | | + + + + + + | Absolute | 1.49 (H)Comment: Testing | 0.00 - 0.80 | EXTERNAL | | | Monocytes | performed at [facility], [address] | K/uL | LAB | | | | [address], | | | | | | [place] [address] | | | | + + + + + + | Absolute | 0.16Comment: Testing | 0.00 - 0.50 | EXTERNAL | | | Eosinophils | performed at [facility], [address] | K/uL | LAB | | | | [address], | | | | | | [place] [address] | | | | + + + + + + | Absolute | 0.03Comment: Testing | 0.00 - 0.10 | EXTERNAL | | | Basophils | performed at [facility], [address] | K/uL | LAB | | | | [address], | | | | | | [place] [address] | | | | + + + [...] | | | | | [place] [address] | | | | + + + [...] EXTERNAL | | | | performed at [facility], [address] | | LAB | | | | [address], | | | | | | [place] [address] | | | | + + + [...] | | | | | [place] [address] | | | | + + + + + + | K | 3.9Comment: Testing | 3.5 - 4.9 | EXTERNAL | | | | performed at [facility], [address] | mmol/L | LAB | | | | [address], | | | | | | [place] [address] | | | | + + + + + + | Cl | 114 (H)Comment: Testing | 99 - 109 mmol/L | EXTERNAL | | | | performed at [facility], [address] | | LAB | | | | [address], | | | | | | [place] [address] | | | | + + + + + + | CO2 | 22 (L)Comment: Testing | 23 - 32 mmol/L | EXTERNAL | | | | performed at [facility], [address] | | LAB | | | | [address], | | | | | | [place] [address] | | | | + + + + + + | Anion Gap | 10Comment: Testing | 5 - 20 mmol/L | EXTERNAL | | | | performed at [facility], [address] | | LAB | | | | [address], | | | | | | [place] [address] | | | | + + + + + + | Glucose, | 122 (H)Comment: Testing | 65 - 99 mg/dL | EXTERNAL | | | Fasting | performed at [facility], [address] | | LAB | | | | [address], | | | | | | [place] [address] | | | | + + + + + + | BUN | 16Comment: Testing | 8 - 25 mg/dL | EXTERNAL | | | | performed at [facility], [address] | | LAB | | | | [address], | | | | | | [place] [address] | | | | + + + + + + | Creatinine | 0.89Comment: Testing | 0.50 - 1.00 | EXTERNAL | | | | performed at [facility], [address] | mg/dL | LAB | | | [address], | | | | | | [place] [address] | | | | + + + + + + | BUN/Creatin | 18Comment: Testing | | EXTERNAL | | | ine Ratio | performed at [facility], [address] | | LAB | | | | [address], | | | | | | [place] [address] | | | | + + + + + + | Calcium | 8.7Comment: Testing | 8.5 - 10.5 | EXTERNAL | | | | performed at [facility], [address] | mg/dL | LAB | | | | [facility], | | | | | | [place] [address] | | | | + + + [...] W | | | | | | [facility], | | | | | | [place] [address] | | | | + + + [...] | | | Fingerstick | performed at [facility];[address] | | LAB | | | | [address];[place] | | | | | | [address] | | | | + + + [...] | | | Fingerstick | performed at [facility];[address] | | LAB | | | | [address];[place], [place] | | | | | | [address] | | | | + + + [...] EXTERNAL | | | | performed at [facility];[address] | mmol/L | LAB | | | | [address];[place] | | | | | | [address] | | | | + + + [...] | | | Fingerstick | performed at [facility];[address] | | LAB | | | | [address];[place], [place] | | | | | | [address] | | | | + + + [...] | | | Fingerstick | performed at [facility];[address] | | LAB | | | | [address];[place] | | | | | | [address] | | | | + + + [...] | | | Fingerstick | performed at [facility];[address] | | LAB | | | | [address];[place], [place] | | | | | | [address] | | | | + + + [...] EXTERNAL | | | | performed at [facility];[address] | mmol/L | LAB | | | | [address];[place], [place] | | | | | | [address] | | | | + + + [...] | | | Fingerstick | performed at [facility];[address] | | LAB | | | | [address];[place] | | | | | | [address] | | | | + + + [...] | | | Fingerstick | performed at [facility];[address] | | LAB | | | | [address];[place] | | | | | | [address] | | | | + + + [...] EXTERNAL | | | | performed at [facility];[address] | mmol/L | LAB | | | | [address];[place] | | | | | | [address] | | | | + + + [...] | | | Fingerstick | performed at [facility];[address] | | LAB | | | | [address];[place] | | | | | | [address] | | | | + + + [...] | | | Fingerstick | performed at [facility];[address] | | LAB | | | | [address];[place], [place] | | | | | | [address] | | | | + + + [...] [place] | | | | | | [address] | | | | + + + + + + | Clarity | TURBIDComment: Testing | | EXTERNAL | | | | performed at [facility], [address] | | LAB | | | | [address], | | | | | | [place] [address] | | | | + + + + + + | Specific | 1.026Comment: Testing | 1.002 - 1.030 | EXTERNAL | | | [place] | performed at [facility], [address] | | LAB | | | | [address], | | | | | | [place], [place] [address] | | | | + + + + + + | Leukocyte | NEGATIVEComment: Testing | | EXTERNAL | | | Esterase, | performed at [facility], [address] | | LAB | | | [address] | [address], | | | | | | [place] [address] | | | | + + + + + + | Nitrite, | NEGATIVEComment: Testing | | EXTERNAL | | | Urine | performed at [facility], [address] | | LAB | | | | [address], | | | | | | [place] [address] | | | | + + + + + + | Urobilinoge | 0.2Comment: Testing | mg/dL | EXTERNAL | | | n, Urine | performed at [facility], [address] | | LAB | | | | [address], | | | | | | [place] [address] | | | | + + + + + + | Protein, | 100 (A)Comment: Testing | mg/dL | EXTERNAL | | | Urine | performed at [facility], [address] | | LAB | | | | [address], | | | | | | [place] [address] | | | | + + + + + + | pH, Urine | 5.5Comment: Testing | 5.0 - 8.0 | EXTERNAL | | | | performed at [facility], [address] | | LAB | | | | [address], | | | | | | [place] [address] | | | | + + + + + + | Blood, | NEGATIVEComment: Testing | | EXTERNAL | | | Urine | performed at [facility], [address] | | LAB | | | | [address], | | | | | | [place] [address] | | | | + + + + + + | Ketones | TRACE (A)Comment: | mg/dL | EXTERNAL | | | | Testing performed at | | LAB | | | | [facility], [address] | | | | | | [place] | | | | | | [address] | | | | + + + + + + | Bilirubin, | LARGE (A)Comment: | | EXTERNAL | | | Urine | Testing performed at | | LAB | | | | [facility], [address] | | | | | | [place] | | | | | | [address] | | | | + + + + + + | Glucose, | NEGATIVEComment: Testing | mg/dL | EXTERNAL | | | Urine | performed at [facility], [address] | | LAB | | | | [address], | | | | | | [place] [address] | | | | + + + + + + | WBC, UA | 0-2Comment: Testing | 0 - 5 /hpf | EXTERNAL | | | | performed at [facility], [address] | | LAB | | | | [address], | | | | | | [place] [address] | | | | + + + + + + | RBC, UA | 1-5Comment: Testing | 0 - 5 /hpf | EXTERNAL | | | | performed at [facility], [address] | | LAB | | | | [address], | | | | | | [place] [address] | | | | + + + + + + | Epithelial | 0-2Comment: Testing | /lpf | EXTERNAL | | | Cells | performed at [facility], [address] | | LAB | | | | [address], | | | | | | [place] [address] | | | | + + + + + + | Bacteria, | 4+ (A)Comment: Testing | | EXTERNAL | | | UA | performed at [facility], [address] | | LAB | | | | [address], | | | | | | [place] [address] | | | | + + + [...] | | | | | [place] [address] | | | | + + + [...] | | at Ratio | performed at [facility], [address] | | LAB | | | | [address], | | | | | | [place] [address] | | | | + + + [...] | | | Urine | performed at [facility], [address] | | LAB | | | Random | [address], | | | | | | [place] [address] | | | | + + + [...] | | | Urine | performed at [facility], [address] | | LAB | | | | [address], | | | | | | [place] [address] | | | | + + + [...] | | | Urine | performed at [facility], [address] | | LAB | | | | [address], | | | | | | [place] [address] | | | | + + + [...] | | | Urine | performed at [facility], [address] | | LAB | | | | [address], | | | | | | [place] [address] | | | | + + + [...] | | | Fingerstick | performed at [facility];[address] | | LAB | | | | [address];[place], [place] | | | | | | [address] | | | | + + + [...] EXTERNAL | | | | performed at [facility];[address] | | LAB | | | | [address];[place], [place] | | | | | | [address] | | | | + + + [...] EXTERNAL | | | | performed at [facility];[address] | mmol/L | LAB | | | | [address];[place] | | | | | | [address] | | | | + + + + + + | K | 3.9Comment: Testing | 3.5 - 4.9 | EXTERNAL | | | | performed at [facility];[address] | mmol/L | LAB | | | | [address];[place] | | | | | | [address] | | | | + + + + + + | Cl | 115 (H)Comment: Testing | 99 - 109 mmol/L | EXTERNAL | | | | performed at [facility];[address] | | LAB | | | | [address];[place] | | | | | | [address] | | | | + + + + + + | CO2 | 26Comment: Testing | 23 - 32 mmol/L | EXTERNAL | | | | performed at [facility];[address] | | LAB | | | | [address];[place] | | | | | | [address] | | | | + + + + + + | Anion Gap | 14Comment: Testing | 5 - 20 mmol/L | EXTERNAL | | | | performed at [facility];[address] | | LAB | | | | [address];[place] | | | | | | [address] | | | | + + + + + + | Glucose, | 110 (H)Comment: Testing | 65 - 99 mg/dL | EXTERNAL | | | Fasting | performed at [facility];[address] | | LAB | | | | [address];[place] | | | | | | [address] | | | | + + + + + + | BUN | 19Comment: Testing | 8 - 25 mg/dL | EXTERNAL | | | | performed at [facility];[address] | | LAB | | | | [address];[place] | | | | | | [address] | | | | + + + + + + | Creatinine | 1.23 (H)Comment: Testing | 0.50 - 1.00 | EXTERNAL | | | | performed at [facility];888 | mg/dL | LAB | | | | [address];[place] | | | | | | [address] | | | | + + + + + + | BUN/Creatin | 16Comment: Testing | | EXTERNAL | | | ine Ratio | performed at [facility];[address] | | LAB | | | | [address];[place] | | | | | | [address] | | | | + + + + + + | Calcium | 9.1Comment: Testing | 8.5 - 10.5 | EXTERNAL | | | | performed at [facility];[address] | mg/dL | LAB | | | | [address];[place] | | | | | | [address] | | | | + + + [...] | | | | | | at [facility];[address];[place] [address] | | | | + + + [...] | | | Fingerstick | performed at [facility];[address] | | LAB | | | | [address];[place] | | | | | | [address] | | | | + + + [...] | | | Fingerstick | performed at [facility];[address] | | LAB | | | | [address];[place] | | | | | | [address] | | | | + + + [...] | | LAB | | | | [facility];[address];[place] [address] | | | | + + + + + + | PCO2 ART | 31 (L)Comment: Testing | 35 - 45 mmHg | EXTERNAL | | | | performed at [facility];[address] | | LAB | | | | [address];[place] | | | | | | [address] | | | | + + + + + + | PO2 ART | 93Comment: Testing | 80 - 105 mmHg | EXTERNAL | | | | performed at [facility];[address] | | LAB | | | | [address];[place] | | | | | | [address] | | | | + + + + + + | Lactate, | 0.6Comment: Testing | 0.36 - 1.25 | EXTERNAL | | | Arterial | performed at [facility];[address] | mmol/L | LAB | | | | [address];[place] | | | | | | [address] | | | | + + + + + + | HCO3 ART | 23Comment: Testing | 22 - 26 mmol/L | EXTERNAL | | | | performed at [facility];[address] | | LAB | | | | [address];[place] | | | | | | [address] | | | | + + + + + + | POC | 24Comment: Testing | 23 - 27 mEq/L | EXTERNAL | | | APPEARANCE | performed at [facility];[address] | | LAB | | | UA | [address];[place] | | | | | | [address] | | | | + + + + + + | Base | 0Comment: Testing | 0 - 3 mEq/L | EXTERNAL | | | Excess, | performed at [facility];[address] | | LAB | | | Arterial | [address];[place] | | | | | | [address] | | | | + + + + + + | O2 SAT ART | 98Comment: Testing | 95 - 98 % | EXTERNAL | | | | performed at [facility];[address] | | LAB | | | | [address];[place] | | | | | | [address] | | | | + + + + + + | FiO2, POC | 25Comment: Testing | % | EXTERNAL | | | | performed at [facility];[address] | | LAB | | | | [address];[place] | | | | | | [address] | | | | + + + + + + | Comment, | Tidal Volume = | | EXTERNAL | | | POC | 20Comment: Peep = 5Resp | | LAB | | | | Rate = 46Testing | | | | | | performed at [facility];[address] | | | | | | [address];[place], [place] | | | | | | [address] | | | | + + + [...] EXTERNAL | | | | performed at [facility];[address] | K/uL | LAB | | | | [address];[place] | | | | | | [address] | | | | + + + + + + | RED CELL | 3.56 (L)Comment: Testing | 3.70 - 5.10 | EXTERNAL | | | COUNT | performed at [facility];888 | M/uL | LAB | | | | [address];[place] | | | | | | [address] | | | | + + + + + + | Hgb | 11.6Comment: Testing | 11.3 - 15.5 | EXTERNAL | | | | performed at [facility];888 | g/dL | LAB | | | | [address];[place] | | | | | | [address] | | | | + + + + + + | Hematocrit, | 33.7 (L)Comment: Testing | 34.0 - 46.0 % | EXTERNAL | | | POC | performed at [facility];[address] | | LAB | | | | [address];[place] | | | | | | [address] | | | | + + + + + + | MCV | 94.6Comment: Testing | 80.0 - 100.0 fl | EXTERNAL | | | | performed at [facility];[address] | | LAB | | | | [address];[place] | | | | | | [address] | | | | + + + + + + | MCH | 32.6Comment: Testing | 27.0 - 34.0 pg | EXTERNAL | | | | performed at [facility];[address] | | LAB | | | | [address];[place] | | | | | | [address] | | | | + + + + + + | MCHC | 34.5Comment: Testing | 32.0 - 35.5 | EXTERNAL | | | | performed at [facility];888 | g/dL | LAB | | | | [address];[place] | | | | | | [address] | | | | + + + + + + | RDW-CV | 53.4 (H)Comment: Testing | 37 - 53 fl | EXTERNAL | | | | performed at [facility];[address] | | LAB | | | | [address];[place] | | | | | | [address] | | | | + + + + + + | Platelet | 344Comment: Testing | 150 - 400 K/uL | EXTERNAL | | | Count | performed at [facility];[address] | | LAB | | | Plasma | [address];[place] | | | | | | [address] | | | | + + + + + + | MPV | 7.3Comment: Testing | fl | EXTERNAL | | | | performed at [facility];[address] | | LAB | | | | [address];[place] | | | | | | [address] | | | | + + + + + + | Differentia | AUTOMATEDComment: | | EXTERNAL | | | l Type | Testing performed at | | LAB | | | | [facility];[address];[place] [address] | | | | + + + + + + | % Segmented | 59.60Comment: Testing | % | EXTERNAL | | | | performed at [facility];[address] | | LAB | | | Neutrophils | [address];[place] | | | | | | [address] | | | | + + + + + + | % | 24.07Comment: Testing | % | EXTERNAL | | | Lymphocytes | performed at [facility];[address] | | LAB | | | | [address];[place] | | | | | | [address] | | | | + + + + + + | % Monocytes | 15.67Comment: Testing | % | EXTERNAL | | | | performed at [facility];[address] | | LAB | | | | [address];[place] | | | | | | [address] | | | | + + + + + + | % | 0.24Comment: Testing | % | EXTERNAL | | | Eosinophils | performed at [facility];[address] | | LAB | | | | [address];[place] | | | | | | [address] | | | | + + + + + + | % Basophils | 0.42Comment: Testing | % | EXTERNAL | | | | performed at [facility];[address] | | LAB | | | | [address];[place] | | | | | | [address] | | | | + + + + + + | Absolute | 5.50Comment: Testing | 1.90 - 7.40 | EXTERNAL | | | Segmented | performed at [facility];888 | K/uL | LAB | | | Neutrophils | [address];[place] | | | | | | [address] | | | | + + + + + + | Absolute | 2.22Comment: Testing | 1.00 - 3.90 | EXTERNAL | | | Lymphocytes | performed at [facility];888 | K/uL | LAB | | | | [address];[place] | | | | | | [address] | | | | + + + + + + | Absolute | 1.45 (H)Comment: Testing | 0.00 - 0.80 | EXTERNAL | | | Monocytes | performed at [facility];888 | K/uL | LAB | | | | [address];[place] | | | | | | [address] | | | | + + + + + + | Absolute | 0.02Comment: Testing | 0.00 - 0.50 | EXTERNAL | | | Eosinophils | performed at [facility];888 | K/uL | LAB | | | | [address];[place] | | | | | | [address] | | | | + + + + + + | Absolute | 0.04Comment: Testing | 0.00 - 0.10 | EXTERNAL | | | Basophils | performed at [facility];888 | K/uL | LAB | | | | [address];[place] | | | | | | [address] | | | | + + + [...] EXTERNAL | | | | performed at [facility];[address] | | LAB | | | | [address];[place], [place] | | | | | | [address] | | | | + + + [...] EXTERNAL | | | | performed at [facility] | | LAB | | | | [address];[place] | | | | | | [address] | | | | + + + [...] EXTERNAL | | | | performed at [facility];888 | mmol/L | LAB | | | | [address];[place] | | | | | | [address] | | | | + + + + + + | K | 3.5Comment: Testing | 3.5 - 4.9 | EXTERNAL | | | | performed at [facility];888 | mmol/L | LAB | | | | [address];[place] | | | | | | [address] | | | | + + + + + + | Cl | 113 (H)Comment: Testing | 99 - 109 mmol/L | EXTERNAL | | | | performed at [facility];[address] | | LAB | | | | [address];[place] | | | | | | [address] | | | | + + + + + + | CO2 | 23Comment: Testing | 23 - 32 mmol/L | EXTERNAL | | | | performed at [facility];[address] | | LAB | | | | [address];[place] | | | | | | [address] | | | | + + + + + + | Anion Gap | 16Comment: Testing | 5 - 20 mmol/L | EXTERNAL | | | | performed at [facility];[address] | | LAB | | | | [address];[place] | | | | | | [address] | | | | + + + + + + | Glucose, | 187 (H)Comment: Testing | 65 - 99 mg/dL | EXTERNAL | | | Fasting | performed at [facility];[address] | | LAB | | | | [address];[place] | | | | | | [address] | | | | + + + + + + | BUN | 19Comment: Testing | 8 - 25 mg/dL | EXTERNAL | | | | performed at [facility];[address] | | LAB | | | | [address];[place] | | | | | | [address] | | | | + + + + + + | Creatinine | 1.00Comment: Testing | 0.50 - 1.00 | EXTERNAL | | | | performed at [facility];888 | mg/dL | LAB | | | | [address];[place] | | | | | | [address] | | | | + + + + + + | BUN/Creatin | 19Comment: Testing | | EXTERNAL | | | ine Ratio | performed at [facility];[address] | | LAB | | | | [address];[place] | | | | | | [address] | | | | + + + + + + | Calcium | 9.1Comment: Testing | 8.5 - 10.5 | EXTERNAL | | | | performed at [facility];888 | mg/dL | LAB | | | | [address];[place] | | | | | | [address] | | | | + + + [...] | | | | | | at [facility];[address] [place] [address] | | | | | | Bl;[place] [address] | | | | + + + [...] JESS | | | Testing performed at [facility], [address], [place] | | | [address] | | + + + + +---------+ [...] + + | [facility] | EXTERNAL LAB | + + [...] | | | Fingerstick | performed at [facility];[address] | | LAB | | | | [address];[place] | | | | | | [address] | | | | + + + [...] + + | Hemoglobin | 5.1Comment: The [place] | 4.0 - 6.0 % | EXTERNAL [...] | | | | | performed at [facility], [address] | | | | | [address], | | | | | | [place] [address] | | | | + + + [...] | | | | | performed at [facility], [address] | | | | | | [address], | | | | | | [place] [address] | | | | + + + [...] EXTERNAL | | | | performed at [facility];[address] | | LAB | | | | [address];[place], [place] | | | | | | [address] | | | | + + + [...] | | LAB | | | | [facility] [address] | | | | | | [address];[place] [address] | | | | + + + + + + | PCO2 ART | 21 (L)Comment: Testing | 35 - 45 mmHg | EXTERNAL | | | | performed at [facility];[address] | | LAB | | | | [address];[place] | | | | | | [address] | | | | + + + + + + | PO2 ART | 61 (L)Comment: Testing | 80 - 105 mmHg | EXTERNAL | | | | performed at [facility];[address] | | LAB | | | | [address];[place] | | | | | | [address] | | | | + + + + + + | Lactate, | 0.9Comment: Testing | 0.36 - 1.25 | EXTERNAL | | | Arterial | performed at [facility];888 | mmol/L | LAB | | | | [address];[place] | | | | | | [id number] | | | | + + + + + + | HCO3 ART | 22Comment: Testing | 22 - 26 mmol/L | EXTERNAL | | | | performed at [facility];[address] | | LAB | | | | [address];[place] | | | | | | [id number] | | | | + + + + + + | POC | 22 (L)Comment: Testing | 23 - 27 mEq/L | EXTERNAL | | | APPEARANCE | performed at [facility];[address] | | LAB | | | UA | [address];[place] | | | | | | [address] | | | | + + + + + + | Base | 0Comment: Testing | 0 - 3 mEq/L | EXTERNAL | | | Excess, | performed at [facility];[address] | | LAB | | | Arterial | [address];[place] | | | | | | [address] | | | | + + + + + + | O2 SAT ART | 95Comment: Testing | 95 - 98 % | EXTERNAL | | | | performed at [facility];[address] | | LAB | | | | [address];[place] | | | | | | [phone] | | | | + + + + + + | FiO2, POC | 25Comment: Testing | % | EXTERNAL | | | | performed at [facility];[address] | | LAB | | | | [address];[place] | | | | | | [address] | | | | + + + + + + | Comment, | Tidal Volume = | | EXTERNAL | | | POC | 472Comment: Peep = 5Resp | | LAB | | | | Rate = 32Testing | | | | | | performed at [facility];[address] | | | | | | [address];[place] | | | | | | [address] | | | | + + + [...] EXTERNAL LAB | | Testing performed at [facility];[address] [place] [address];[place] [address] MRSA PCR | | | NEGATIVE Testing performed at | | | [address];[place] [address] | | + + + + +---------+ [...] right lung base. Electronically signed by Tyree Graay MD on | | 09/06/2014 7:08 AM [...] EXTERNAL | | | | performed at [facility];888 | mOsm/kg | LAB | | | | [address];[place] | | | | | | [address] | | | | + + + [...] | | LAB | | | | [facility];[address];[place] [phone] | | | | + + + + + + | PCO2 ART | 18 (LL)Comment: Testing | 35 - 45 mmHg | EXTERNAL | | | | performed at [facility];[address] | | LAB | | | | [address];[place] | | | | | | [address] | | | | + + + + + + | PO2 ART | 66 (L)Comment: Testing | 80 - 105 mmHg | EXTERNAL | | | | performed at [facility];[address] | | LAB | | | | [address];[place] | | | | | | [phone] | | | | + + + + + + | Lactate, | 0.9Comment: Testing | 0.36 - 1.25 | EXTERNAL | | | Arterial | performed at [facility];888 | mmol/L | LAB | | | | [address];[place] | | | | | | [address] | | | | + + + + + + | HCO3 ART | 20 (L)Comment: Testing | 22 - 26 mmol/L | EXTERNAL | | | | performed at [facility];[address] | | LAB | | | | [address];[place] | | | | | | [address] | | | | + + + + + + | POC | 21 (L)Comment: Testing | 23 - 27 mEq/L | EXTERNAL | | | APPEARANCE | performed at [facility];[address] | | LAB | | | UA | [address];[place] | | | | | | [phone] | | | | + + + + + + | Base | 1Comment: Testing | 0.0 - 2.0 | EXTERNAL | | | deficit | performed at [facility];888 | mmol/L | LAB | | | | [address];[place] | | | | | | [address] | | | | + + + + + + | O2 SAT ART | 97Comment: Testing | 95 - 98 % | EXTERNAL | | | | performed at [facility];[address] | | LAB | | | | [address];[place] | | | | | | [address] | | | | + + + + + + | FiO2, POC | 21Comment: Testing | % | EXTERNAL | | | | performed at [facility];[address] | | LAB | | | | [address];[place] | | | | | | [address] | | | | + + + [...] | | | Patient | performed at [facility];888 | | LAB | | | | [address];[place] | | | | | | [address] | | | | + + + [...] | | | | | performed at [facility] | | | | | | [facility];[place], [place] | | | | | | [address] | | | | + + + [...] EXTERNAL | | | | performed at [facility];[address] | | LAB | | | | [address];[place], [place] | | | | | | [address] | | | | + + + [...] | | | Serum | performed at [facility];888 | mOsm/kg | LAB | | | | [address];[place] | | | | | | [address] | | | | + + + [...] EXTERNAL | | | | performed at [facility];[address] | | LAB | | | | [address];[place], [place] | | | | | | [address] | | | | + + + [...] EXTERNAL | | | | performed at [facility];888 | mmol/L | LAB | | | | [address];[place] | | | | | | [address] | | | | + + + + + + | K | 2.8 (L)Comment: Testing | 3.5 - 4.9 | EXTERNAL | | | | performed at [facility];888 | mmol/L | LAB | | | | [address];[place] | | | | | | [address] | | | | + + + + + + | Cl | 106Comment: Testing | 99 - 109 mmol/L | EXTERNAL | | | | performed at [facility];[address] | | LAB | | | | [address];[place] | | | | | | [address] | | | | + + + + + + | CO2 | 22 (L)Comment: Testing | 23 - 32 mmol/L | EXTERNAL | | | | performed at [facility];888 | | LAB | | | | [address];[place] | | | | | | [address] | | | | + + + + + + | Anion Gap | 18Comment: Testing | 5 - 20 mmol/L | EXTERNAL | | | | performed at [facility];[address] | | LAB | | | | [address];[place] | | | | | | [address] | | | | + + + + + + | Glucose, | 276 (H)Comment: Testing | 65 - 99 mg/dL | EXTERNAL | | | Fasting | performed at [facility];888 | | LAB | | | | [address];[place] | | | | | | [address] | | | | + + + + + + | BUN | 17Comment: Testing | 8 - 25 mg/dL | EXTERNAL | | | | performed at [facility];[address] | | LAB | | | | [address];[place] | | | | | | [address] | | | | + + + + + + | Creatinine | 0.94Comment: Testing | 0.50 - 1.00 | EXTERNAL | | | | performed at [facility];888 | mg/dL | LAB | | | | [address];[place] | | | | | | [address] | | | | + + + + + + | BUN/Creatin | 18Comment: Testing | | EXTERNAL | | | ine Ratio | performed at [facility];[address] | | LAB | | | | [address];[place] | | | | | | [address] | | | | + + + + + + | Calcium | 9.2Comment: Testing | 8.5 - 10.5 | EXTERNAL | | | | performed at [facility];888 | mg/dL | LAB | | | | [address];[place] | | | | | | [address] | | | | + + + + + + | Protein, | 6.7Comment: Testing | 6.3 - 8.2 g/dL | EXTERNAL | | | Total | performed at [facility];[address] | | LAB | | | | [address];[place] | | | | | | [address] | | | | + + + + + + | Albumin | 2.8 (L)Comment: Testing | 3.6 - 5.0 g/dL | EXTERNAL | | | | performed at [facility];[address] | | LAB | | | | [address];[place] | | | | | | [address] | | | | + + + + + + | Globulin | 3.8Comment: Testing | 1.3 - 4.9 g/dL | EXTERNAL | | | | performed at [facility];[address] | | LAB | | | | [address];[place] | | | | | | [address] | | | | + + + + + + | A/G Ratio | 0.7 (L)Comment: Testing | 1.0 - 2.4 | EXTERNAL | | | | performed at [facility];[address] | | LAB | | | | [address];[place] | | | | | | [address] | | | | + + + + + + | Bilirubin | 0.5Comment: Testing | 0.1 - 1.5 mg/dL | EXTERNAL | | | Total | performed at [facility];[address] | | LAB | | | | [address];[place] | | | | | | [address] | | | | + + + + + + | ALP, | 81Comment: Testing | 35 - 115 U/L | EXTERNAL | | | External | performed at [facility];[address] | | LAB | | | | [address];[place] | | | | | | [address] | | | | + + + + + + | AST | 36Comment: Testing | 10 - 45 U/L | EXTERNAL | | | | performed at [facility];888 | | LAB | | | | [address];[place] | | | | | | [address] | | | | + + + + + + | ALT | 63Comment: Testing | 10 - 65 U/L | EXTERNAL | | | | performed at [facility];[address] | | LAB | | | | [address];[place] | | | | | | [address] | | | | + + + [...] | | | | | | at [facility];[address] | | | | [address];[place] [phone] | | | | + + + [...] (500), | | | | | | 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 | | | | [...] | | LAB | | | | [facility];[address];[place] [address] | | | | + + + + + + | PCO2 ART | 12 (LL)Comment: Testing | 35 - 45 mmHg | EXTERNAL | | | | performed at [facility];[address] | | LAB | | | | [address];[place] | | | | | | [address] | | | | + + + + + + | PO2 ART | 86Comment: Testing | 80 - 105 mmHg | EXTERNAL | | | | performed at [facility];[address] | | LAB | | | | [address];[place] | | | | | | [address] | | | | + + + + + + | Lactate, | 1.4 (H)Comment: Testing | 0.36 - 1.25 | EXTERNAL | | | Arterial | performed at [facility];888 | mmol/L | LAB | | | | [address];[place] | | | | | | [address] | | | | + + + + + + | HCO3 ART | 11 (L)Comment: Testing | 22 - 26 mmol/L | EXTERNAL | | | | performed at [facility];[address] | | LAB | | | | [address];[place] | | | | | | [address] | | | | + + + + + + | POC | 11 (L)Comment: Testing | 23 - 27 mEq/L | EXTERNAL | | | APPEARANCE | performed at [facility];[address] | | LAB | | | UA | [address];[place] | | | | | | [address] | | | | + + + + + + | Base | 11 (H)Comment: Testing | 0.0 - 2.0 | EXTERNAL | | | deficit | performed at [facility];888 | mmol/L | LAB | | | | [address];[place] | | | | | | [address] | | | | + + + + + + | O2 SAT ART | 98Comment: Testing | 95 - 98 % | EXTERNAL | | | | performed at [facility];[address] | | LAB | | | | [address];[place] | | | | | | [address] | | | | + + + [...] | | LAB | | | | [facility];[address] [place] [address] | | | | | | Blvd;[place] [phone] | | | | + + + [...] K/uL | LAB | | | | [facility];[address];[place] [address] | | | | + + + + + -+ | RED CELL | 4.46Comment: Testing | 3.70 - 5.10 | EXTERNAL | | | COUNT | performed at [facility];888 | M/uL | LAB | | | | [address];[place] | | | | | | [address] | | | | + + + + + -+ | Hgb | 14.8Comment: Testing | 11.3 - 15.5 | EXTERNAL | | | | performed at [facility];888 | g/dL | LAB | | | | [address];[place] | | | | | | [address] | | | | + + + + + -+ | Hematocrit, | 42.9Comment: Testing | 34.0 - 46.0 % | EXTERNAL | | | POC | performed at [facility];[address] | | LAB | | | | [address];[place] | | | | | | [address] | | | | + + + + + -+ | MCV | 96.3Comment: Testing | 80.0 - 100.0 fl | EXTERNAL | | | | performed at [facility];[address] | | LAB | | | | [address];[place] | | | | | | [address] | | | | + + + + + -+ | MCH | 33.2Comment: Testing | 27.0 - 34.0 pg | EXTERNAL | | | | performed at [facility];[address] | | LAB | | | | [address];[place] | | | | | | [address] | | | | + + + + + -+ | MCHC | 34.5Comment: Testing | 32.0 - 35.5 | EXTERNAL | | | | performed at [facility];888 | g/dL | LAB | | | | [address];[place] | | | | | | [address] | | | | + + + + + -+ | RDW-CV | 53.4 (H)Comment: Testing | 37 - 53 fl | EXTERNAL | | | | performed at [facility];[address] | | LAB | | | | [address];[place] | | | | | | [address] | | | | + + + + + -+ | Platelet | 393Comment: Testing | 150 - 400 K/uL | EXTERNAL | | | Count | performed at [facility];[address] | | LAB | | | Plasma | [address];[place] | | | | | | [address] | | | | + + + + + -+ | MPV | 7.6Comment: Testing | fl | EXTERNAL | | | | performed at [facility];[address] | | LAB | | | | [address];[place] | | | | | | [address] | | | | + + + + + -+ | Differentia | AUTOMATEDComment: | | EXTERNAL | | | l Type | Testing performed at | | LAB | | | | [facility];[address];[place] [address] | | | | + + + + + -+ | % Segmented | 78.26Comment: Testing | % | EXTERNAL | | | | performed at [facility];[address] | | LAB | | | Neutrophils | [address];[place] | | | | | | [address] | | | | + + + + + -+ | % | 8.69Comment: Testing | % | EXTERNAL | | | Lymphocytes | performed at [facility];[address] | | LAB | | | | [address];[place] | | | | | | [address] | | | | + + + + + -+ | % Monocytes | 12.49Comment: Testing | % | EXTERNAL | | | | performed at [facility];[address] | | LAB | | | | [address];[place] | | | | | | [address] | | | | + + + + + -+ | % | 0.12Comment: Testing | % | EXTERNAL | | | Eosinophils | performed at [facility];[address] | | LAB | | | | [address];[place] | | | | | | [address] | | | | + + + + + -+ | % Basophils | 0.44Comment: Testing | % | EXTERNAL | | | | performed at [facility];[address] | | LAB | | | | [address];[place] | | | | | | [address] | | | | + + + + + -+ | Absolute | 8.71 (H)Comment: Testing | 1.90 - 7.40 | EXTERNAL | | | Segmented | performed at [facility];888 | K/uL | LAB | | | Neutrophils | [address];[place] | | | | | | [address] | | | | + + + + + -+ | Absolute | 0.97 (L)Comment: Testing | 1.00 - 3.90 | EXTERNAL | | | Lymphocytes | performed at [facility];888 | K/uL | LAB | | | | [address];[place] | | | | | | [address] | | | | + + + + + -+ | Absolute | 1.39 (H)Comment: Testing | 0.00 - 0.80 | EXTERNAL | | | Monocytes | performed at [facility];888 | K/uL | LAB | | | | [address];[place] | | | | | | [address] | | | | + + + + + -+ | Absolute | 0.01Comment: Testing | 0.00 - 0.50 | EXTERNAL | | | Eosinophils | performed at [facility];888 | K/uL | LAB | | | | [address];[place] | | | | | | [address] | | | | + + + + + -+ | Absolute | 0.05Comment: Testing | 0.00 - 0.10 | EXTERNAL | | | Basophils | performed at [facility];888 | K/uL | LAB | | | | [address];[place] | | | | | | [address] | | | | + + + + + -+ | Na | 139Comment: Testing | 135 - 143 | EXTERNAL | | | | performed at [facility];888 | mmol/L | LAB | | | | [address];[place] | | | | | | [address] | | | | + + + + + -+ | K | 3.6Comment: Testing | 3.5 - 4.9 | EXTERNAL | | | | performed at [facility];888 | mmol/L | LAB | | | | [address];[place] | | | | | | [address] | | | | + + + + + -+ | Cl | 104Comment: Testing | 99 - 109 mmol/L | EXTERNAL | | | | performed at [facility];[address] | | LAB | | | | [address];[place] | | | | | | [address] | | | | + + + + + -+ | CO2 | 12 (LL)Comment: CALLED | 23 - 32 mmol/L | EXTERNAL | | | | RESULTSREAD BACK RESULTS | | LAB | | | | ABIGAIL/DAMIAN AGUIRRE | | | | | | AT 1824 BY SALTesting | | | | | | performed at [facility];[address] | | | | | | [address];[place] | | | | | | [address] | | | | + + + + + -+ | Anion Gap | 26 (H)Comment: Testing | 5 - 20 mmol/L | EXTERNAL | | | | performed at [facility];[address] | | LAB | | | | [address];[place] | | | | | | [address] | | | | + + + + + -+ | Glucose, | 229 (H)Comment: Testing | 65 - 99 mg/dL | EXTERNAL | | | Fasting | performed at [facility];[address] | | LAB | | | | [address];[place] | | | | | | [address] | | | | + + + + + -+ | BUN | 22Comment: Testing | 8 - 25 mg/dL | EXTERNAL | | | | performed at [facility];[address] | | LAB | | | | [address];[place] | | | | | | [address] | | | | + + + + + -+ | Creatinine | 1.07 (H)Comment: Testing | 0.50 - 1.00 | EXTERNAL | | | | performed at [facility];888 | mg/dL | LAB | | | | [address];[place] | | | | | | [address] | | | | + + + + + -+ | BUN/Creatin | 21Comment: Testing | | EXTERNAL | | | ine Ratio | performed at [facility];[address] | | LAB | | | | [address];[place] | | | | | | [address] | | | | + + + + + -+ | Calcium | 10.8 (H)Comment: Testing | 8.5 - 10.5 | EXTERNAL | | | | performed at [facility];888 | mg/dL | LAB | | | | [address];[place] | | | | | | [address] | | | | + + + + + -+ | Protein, | 8.5 (H)Comment: Testing | 6.3 - 8.2 g/dL | EXTERNAL | | | Total | performed at [facility];[address] | | LAB | | | | [address];[place] | | | | | | [address] | | | | + + + + + -+ | Albumin | 3.5 (L)Comment: Testing | 3.6 - 5.0 g/dL | EXTERNAL | | | | performed at [facility];[address] | | LAB | | | | [address];[place] | | | | | | [address] | | | | + + + + + -+ | Globulin | 5.0 (H)Comment: Testing | 1.3 - 4.9 g/dL | EXTERNAL | | | | performed at [facility];[address] | | LAB | | | | [address];[place] | | | | | | [address] | | | | + + + + + -+ | A/G Ratio | 0.7 (L)Comment: Testing | 1.0 - 2.4 | EXTERNAL | | | | performed at [facility];[address] | | LAB | | | | [address];[place] | | | | | | [address] | | | | + + + + + -+ | Bilirubin | 0.5Comment: Testing | 0.1 - 1.5 mg/dL | EXTERNAL | | | Total | performed at [facility];[address] | | LAB | | | | [address];[place] | | | | | | [address] | | | | + + + + + -+ | ALP, | 99Comment: Testing | 35 - 115 U/L | EXTERNAL | | | External | performed at [facility];[address] | | LAB | | | | [address];[place] | | | | | | [address] | | | | + + + + + -+ | AST | 55 (H)Comment: Testing | 10 - 45 U/L | EXTERNAL | | | | performed at [facility];[address] | | LAB | | | | [address];[place] | | | | | | [address] | | | | + + + + + -+ | ALT | 81 (H)Comment: Testing | 10 - 65 U/L | EXTERNAL | | | | performed at [facility];[address] | | LAB | | | | [address];[place] | | | | | | [address] | | | | + + + [...] | | | | | | at [facility];[address];[place] [address] | | | | + + + + + -+ | CK, Total | 259 (H)Comment: Testing | 30 - 240 U/L | EXTERNAL | | | | performed at [facility];[address] | | LAB | | | | [address];[place] | | | | | | [address] | | | | + + + [...] | | | | | performed at [facility];[address] | | | | | | [address];[place] | | | | | | [address] | | | | + + + + + -+ | aPTT, | 33 (H)Comment: Testing | 23 - 32 seconds | EXTERNAL | | | Patient | performed at [facility];[address] | | LAB | | | | [address];[place] | | | | | | [address] | | | | + + + + + -+ | CK-MB | 11.4 (H)Comment: Testing | 0.5 - 3.6 ng/mL | EXTERNAL | | | | performed at [facility];[address] | | LAB | | | | [address];[place] | | | | | | [address] | | | | + + + [...] EXTERNAL | | | | performed at [facility] | | LAB | | | | [address];[place], [place] | | | | | | [address] | | | | + + + [...] EXTERNAL | | | | performed at [facility];[address] | | LAB | | | | [address];[place] | | | | | | [address] | | | | + + + [...] EXTERNAL | | | | performed at [facility];888 | mmol/L | LAB | | | | [address];[place], [place] | | | | | | [address] | | | | + + + [...] | | | Lvl | performed at [facility];888 | mg/dL | LAB | | | | [address];[place], [place] | | | | | | [address] | | | | + + + [...]
--- OUTSIDE RECORDS SUMMARY | ~2019-05-03 | XMS | Encounter Summary ---
Demographics + + + | Address | [address] | | | [place] [address] | + + + | Home Phone [...] | | | | | [place] [address] | | + + + + + Care Team Providers + +------+ + | Care Fibre Optic Cable Splicer Name | Role | Phone | + [...] [address] | | | | | [place] | [place] | | | | | [address] | [address] | | | | | [phone] | [phone] | | | | | | | [...] + + | Performing | Address | City/State/[facility] | Phone Number | | Organization | | | | + +---------+ + + | [facility] DEPARTMENT OF | | | [...] | | + +---------+ + + | [facility] DEPARTMENT OF | | | [...] + | [facility] | [address] | [place] [address] | | | PATHOLOGY | [address] | | | + + + + + | [facility] | [address] | [place] [address] | | | PATHOLOGY | [address] [...] DEPARTMENT OF | [address] | [place] [address] | | | PATHOLOGY | [address] | | | + + + + + | [place] DEPARTMENT OF | [address] | [place] [address] | | | PATHOLOGY | [address] [...] | + + + + + | [facility] DEPARTMENT OF | [address] | [place] [address] | | | PATHOLOGY | [address] | | | + + + + + | [facility] DEPARTMENT OF | [facility] | [place] [address] | | | PATHOLOGY | [address] [...] DEPARTMENT OF | [address] | [place] [address] | | | PATHOLOGY | [address] | | | + + + + + | [facility] | [address] | [place] [address] | | | PATHOLOGY | [address] [...] + + | Performing | Address | City/State/[facility]ercode | Phone Number | | Organization | | | | + +---------+ + + | [facility] DEPARTMENT OF | | | [...] | + + + + + | [facility] DEPARTMENT | [address] [facility] [facility] | [place] [address] | | | PATHOLOGY | [address] | | | + + + + + | [facility] | [facility] [facility] | [place] [address] | | | PATHOLOGY | [address] [...] | + + + + + | [facility] DEPARTMENT OF | [address] | [place] [address] | | | PATHOLOGY | [address] | | | + + + + + | [facility] DEPARTMENT OF | [address] | [place] [address] | | | PATHOLOGY | [address] [...] + | [facility] | [facility] | [place] [address] | | | PATHOLOGY | [address] | | | + + + + + | [facility] | [facility] [address] | [place] [address] | | | PATHOLOGY | [address] | | | + + + [...] + | [facility] | [address] [address] | [place] [address] | | | PATHOLOGY | [address] | | | + + + + + | [facility] DEPARTMENT OF | [address] | [place] [address] | | | PATHOLOGY | [address] [...] + | [facility] | [address] | [place] [address] | | | PATHOLOGY | [address] | | | + + + + + | [facility] | [facility] | [place] [address] | | | PATHOLOGY | [address] [...] | + + + + + | [facility] DEPARTMENT OF | [address] | [place] [address] | | | PATHOLOGY | [address] | | | + + + + + | [facility] | [address] | [place] [address] | | | PATHOLOGY | [address] [...] DEPARTMENT OF | [address] | [place] [address] | | | PATHOLOGY | [address] | | | + + + + + | [facility] DEPARTMENT OF | [address] | [place] [address] | | | PATHOLOGY | [address] [...] DEPARTMENT OF | [address] | [place] [address] | | | PATHOLOGY | [address] | | | + + + + + | [facility] DEPARTMENT OF | [address] | [place] [address] | | | PATHOLOGY | [address] [...] DEPARTMENT OF | [address] | [place] [address] | | | PATHOLOGY | [address] | | | + + + + + | [facility] | [address] | [place] [address] | | | PATHOLOGY | [address] [...] | | | [place] | Ngoc AHSSANEXAM:AP and | | | | | STEREO [...] | | + +---------+ + + | [facility] DEPARTMENT OF | | | [...] + | [facility] | [address] [address] | [place] [address] | | | PATHOLOGY | [address] | | | + + + + + | [facility] | [address] | [place] [address] | | | PATHOLOGY | [address] [...] DEPARTMENT OF | [address] | [place] [address] | | | PATHOLOGY | [address] | | | + + + + + | [facility] DEPARTMENT OF | [address] | [place] [address] | | | PATHOLOGY | [address] [...] | + + + + + | [facility] DEPARTMENT OF | [address] | [place] [address] | | | PATHOLOGY | [address] | | | + + + + + | [facility] DEPARTMENT OF | [address] | [place] [address] | | | PATHOLOGY | [address] [...] DEPARTMENT OF | [address] | [place] [address] | | | PATHOLOGY | [address] | | | + + + + + | [facility] DEPARTMENT | [address] | [place] [address] | | | PATHOLOGY | [address] | | | + + + + + MAGNESIUM, PLASMA (10/30/2005 7:14 AM PDT) + +-------+ + + + | Component | Value | Ref Range | Performed | Pathologist | | | | | At | Signature | + +-------+ + + + | MAGNESIUM,P | 2.1 | 1.8 - 2.5 mg/dL | [facility] | | | LASMA | | | [...] | + + + + + | [facility] DEPARTMENT OF | [address] | [place] [address] | | | PATHOLOGY | [address] | | | + + + + + | [facility] DEPARTMENT OF | [address] | [place] [address] | | | PATHOLOGY | [address] [...] DEPARTMENT OF | [address] | [place] [address] | | | PATHOLOGY | [address] | | | + + + + + | [facility] DEPARTMENT OF | [address] | [place] [address] | | | PATHOLOGY | [address] [...] | + + + + + | [facility] DEPARTMENT OF | [address] | [place] [address] | | | PATHOLOGY | [address] | | | + + + + + | [facility] DEPARTMENT OF | [address] | [place] [address] | | | PATHOLOGY | [address] [...] | + + + + + | [facility] DEPARTMENT OF | [address] [facility] [facility] | [place] [address] | | | PATHOLOGY | [address] | | | + + + + + | [facility] DEPARTMENT OF | [address] | [place] [address] | | | PATHOLOGY | [address] [...] DEPARTMENT OF | [address] | [place] [address] | | | PATHOLOGY | [address] | | | + + + + + | [facility] DEPARTMENT OF | [address] | [place] [address] | | | PATHOLOGY | [address] | | | + + + + + RENAL FUNCTION SET (10/29/2005 6:50 AM PDT) + +---------+ + + + | Component | Value | Ref Range | Performed | Pathologist | | | | | At | Signature | + +---------+ + + + | GLUCOSE, | 135 (H) | 65 - 110 mg/dL | [facility] | | | PLASMA | | | [...] | + + + + + | [facility] DEPARTMENT OF | [address] | [place] [address] | | | PATHOLOGY | [address] | | | + + + + + | [facility] DEPARTMENT OF | [address] | [place] [address] | | | PATHOLOGY | [address] [...] DEPARTMENT OF | [address] | [place] [address] | | | PATHOLOGY | [address] | | | + + + + + | [facility] | [address] | [place] [address] | | | PATHOLOGY | [address] [...] + | [facility] | [address] | [place] [address] | | | PATHOLOGY | [address] | | | + + + + + | [facility] | [facility] [facility] | [place] [address] | | | PATHOLOGY | [address] [...] | + + + + + | [facility] DEPARTMENT OF | [address] | [place] [address] | | | PATHOLOGY | [address] | | | + + + + + | [facility] DEPARTMENT OF | [address] | [place] [address] | | | PATHOLOGY | [address] [...] + | [facility] | [address] | [place] [address] | | | PATHOLOGY | [address] | | | + + + + + | [facility] | [address] | [place] [address] | | | PATHOLOGY | [address] | | | + + + + + MAGNESIUM, PLASMA (10/28/2005 3:15 AM PDT) + +---------+ + + + | Component | Value | Ref Range | Performed | Pathologist | | | | | At | Signature | + +---------+ + + + | MAGNESIUM,P | 1.4 (L) | 1.8 - 2.5 mg/dL | [facility] | | | LASMA | | | [...] | + + + + + | [facility] DEPARTMENT OF | [address] | [place] [address] | | | PATHOLOGY | [address] | | | + + + + + | [facility] DEPARTMENT OF | [address] | [place] [address] | | | PATHOLOGY | [address] [...] | + + + + + | [facility] DEPARTMENT OF | [address] | [place] [address] | | | PATHOLOGY | [address] | | | + + + + + | [facility] DEPARTMENT | [address] | [place] [address] | | | PATHOLOGY | [address] [...] + | [facility] | [address] | [place] [address] | | | PATHOLOGY | [address] | | | + + + + + | [facility] | [address] | [place] [address] | | | PATHOLOGY | [address] [...] DEPARTMENT OF | [address] | [place] [address] | | | PATHOLOGY | [address] | | | + + + + + | [facility] DEPARTMENT OF | [address] | [place] [address] | | | PATHOLOGY | [address] [...] | + + + + + | [facility] DEPARTMENT OF | [facility] [facility] | [place] [address] | | | PATHOLOGY | [address] | | | + + + + + | [facility] DEPARTMENT OF | [facility] | [place] [address] | | | PATHOLOGY | [address] [...] | | + +---------+ + + | [facility] DEPARTMENT OF | | | [...] + | [facility] | [address] | [place] [address] | | | PATHOLOGY | [address] | | | + + + + + | [facility] | [facility] [facility] | [place] [address] | | | PATHOLOGY | [address] | | | + + + + + MAGNESIUM, PLASMA (10/27/2005 6:15 PM PDT) + +---------+ + + + | Component | Value | Ref Range | Performed | Pathologist | | | | | At | Signature | + +---------+ + + + | MAGNESIUM,P | 1.5 (L) | 1.8 - 2.5 mg/dL | [facility] | | | LASMA | | | [...] | + + + + + | [facility] DEPARTMENT OF | [address] | [place] [address] | | | PATHOLOGY | [address] | | | + + + + + | [facility] DEPARTMENT OF | [address] | [place] [address] | | | PATHOLOGY | [address] [...] | + + + + + | [facility] DEPARTMENT OF | [address] | [place] [address] | | | PATHOLOGY | [address] | | | + + + + + | [facility] | [facility] | [place] [address] | | | PATHOLOGY | [address] [...] DEPARTMENT OF | [address] | [place] [address] | | | PATHOLOGY | [address] | | | + + + + + | [facility] DEPARTMENT | [address] | [place] [address] | | | PATHOLOGY | [address] [...] + | [facility] DEPARTMENT OF | [address] [facility] [facility] | [place] [address] | | | PATHOLOGY | [address] | | | + + + + + | [facility] DEPARTMENT OF | [address] | [facility] [place] [address] | | | PATHOLOGY | [address] [...] DEPARTMENT OF | [address] | [place] [address] | | | PATHOLOGY | [address] | | | + + + + + | [facility] DEPARTMENT OF | [address] | [place] [address] | | | PATHOLOGY | [address] [...] + + + | [facility] | [address] | [place] [address] | | | LAB-MICRO | | | [...] | | | | | performed at [place] | | | | | | [facility] [place] | | | | | | Laboratory. | | | | + + + + + + + + | Specimen | + + | | + + + + + + + | Performing | Address | City/State/Zipcode | Phone Number | | Organization | | | | + + + + + | [facility] | [address] | [place] [address] | | | LAB-MICRO | | | [...] + + + | [facility] | [address] | [place] [address] | | | LAB-MICRO | | | [...] + + + | [facility] | [address] | [place] [address] | | | LAB-MICRO | | | [...] | | | | | performed at [place] | | | | | | [facility] [place] | | | | | | Laboratory | | | | + + + + + + + + | Specimen | + + | | + + + + + + + | Performing | Address | City/State/Zipcode | Phone Number | | Organization | | | | + + + + + | [facility] | [address] | [place] [address] | | | LAB-MICRO | | | [...] | + + + + + | [facility] | [address] | [place] [address] | | | LAB-MICRO | | | [...] | | | | Test performed at [place] | | | | | | [facility] [place] | | | | | | Laboratory. | | | | + + + + + + + + | Specimen | + + | | + + + + + + + | Performing | Address | City/State/Zipcode | Phone Number | | Organization | | | | + + + + + | [facility] | [address] | [place] [address] | | | LAB-MICRO | | | [...] | + + + + + | [facility] DEPARTMENT OF | [address] | [place] [address] | | | PATHOLOGY | [address] | | | + + + + + | [facility] | [address] | [place] [address] | | | PATHOLOGY | [address] [...] | + + + + + | [facility] | [address] | [place] [address] | | | LAB-MICRO | | | [...] | | | | | performed at [place] | | | | | | [facility] [place] | | | | | | Laboratory. | | | | + + + + + + + + | Specimen | + + | | + + + + + + + | Performing | Address | City/State/Zipcode | Phone Number | | Organization | | | | + + + + + | [facility] | [address] | [place] [address] | | | LAB-MICRO | | | [...] + + + | [facility] | [address] | [place] [address] | | | LAB-MICRO | | | [...] + + + | [facility] | [address] | [place] [address] | | | LAB-MICRO | | | [...] | | | | | performed at [place] | | | | | | [facility] [place] | | | | | | Laboratory | | | | + + + + + + + + | Specimen | + + | | + + + + + + + | Performing | Address | City/State/Zipcode | Phone Number | | Organization | | | | + + + + + | [facility] | [address] | [place] [address] | | | LAB-MICRO | | | [...] + + + | [facility] | [address] | [place] [address] | | | LAB-MICRO | | | [...] | | | | Test performed at [place] | | | | | | [facility] [place] | | | | | | Laboratory. | | | | + + + + + + + + | Specimen | + + | | + + + + + + + | Performing | Address | City/State/Zipcode | Phone Number | | Organization | | | | + + + + + | [facility] | [address] | [place] [address] | | | LAB-MICRO | | | [...] DEPARTMENT OF | [address] | [place] [address] | | | PATHOLOGY | [address] | | | + + + + + | [facility] DEPARTMENT OF | [address] | [place] [address] | | | PATHOLOGY | [address] [...] DEPARTMENT OF | [address] | [place] [address] | | | PATHOLOGY | [address] | | | + + + + + | [facility] DEPARTMENT | [address] | [place] [address] | | | PATHOLOGY | [address] | | | + + + + + SURGICAL PATHOLOGY (10/27/2005) + + + + + + | Component | Value | Ref Range | Performed | Pathologist | | | | | At | Signature | + + + + + + | SURGICAL | SOURCE OF SPECIMEN:A | | [facility] | | | PATHOLOGY | Parietal pleura-FSSOURCE [...] A | | | | | | field service representative section | | | | [...] noted. | | | | | | Inspector Aide | | | | | | sections [...] + | [facility] | [facility] | [place] [address] | | | PATHOLOGY | [address] | | | + + + + + | [facility] DEPARTMENT OF | [facility] | [place] [address] | | | PATHOLOGY | [address] [...] + + + + | PRODUCT | [id number] | | [facility] | | | UNIT [...] | + + + + + | [facility] DEPARTMENT OF | [address] | [place] [address] | | | PATHOLOGY | [address] | | | + + + + + | [facility] DEPARTMENT OF | [address] | [place] [address] | | | PATHOLOGY | [address] [...] + + + + | PRODUCT | [id number] | | [facility] | | | UNIT [...] | + + + + + | [facility] DEPARTMENT | [address] | [place] [address] | | | PATHOLOGY | [address] | | | + + + + + | [facility] DEPARTMENT | [facility] | [place] [address] | | | PATHOLOGY | [address] [...] (H) | 150 - 400 K/cu | [facility] | | | COUNT | | mm [...] | + + + + + | [facility] DEPARTMENT OF | [facility] | [place] [address] | | | PATHOLOGY | [address] | | | + + + + + | [facility] DEPARTMENT OF | [address] | [place] [address] | | | PATHOLOGY | [address] [...] + | [facility] | [address] | [place] [address] | | | PATHOLOGY | [address] | | | + + + + + | [facility] | [address] | [place] [address] | | | PATHOLOGY | [address] [...] + | [facility] | [address] [place] [address] | [place] [address] | | | PATHOLOGY | [address] | | | + + + + + | [facility] | [address] [place] [address] | [place] [address] | | | PATHOLOGY | [address] [...] + | [facility] | [address] [facility] | [place] [address] | | | PATHOLOGY | [address] | | | + + + + + | [facility] | [address] [facility] | [place] [address] | | | PATHOLOGY | [address] [...] | + + + + + | [facility] DEPARTMENT OF | [address] | [place] [address] | | | PATHOLOGY | [address] | | | + + + + + | [facility] | [address] | [place] [address] | | | PATHOLOGY | [address] [...] | + + + + + | [facility] DEPARTMENT OF | [address] | [place] [address] | | | PATHOLOGY | [address] | | | + + + + + | [facility] DEPARTMENT OF | [address] | [place] [address] | | | PATHOLOGY | [address] [...] | + + + + + | [facility] DEPARTMENT OF | [address] | [place] [address] | | | PATHOLOGY | [address] | | | + + + + + | [facility] DEPARTMENT OF | [address] | [place] [address] | | | PATHOLOGY | [address] | | | + + + + + ROD CUNNINGHAM (10/22/2005 8:50 PM PDT) + + + + + + | Component | Value | Ref Range | Performed | Pathologist | | | | | At | Signature | + + + + + + | COLOR(UR) | Yellow | | [facility] | | | | | | DEPARTMENT [...] DEPARTMENT OF | [address] | [place] [address] | | | PATHOLOGY | [address] | | | + + + + + | [facility] DEPARTMENT OF | [address] | [place] [address] | | | PATHOLOGY | [address] [...] + | [facility] | [address] | [place] [address] | | | PATHOLOGY | [address] | | | + + + + + | [facility] | [address] | [place] [address] | | | PATHOLOGY | [address] [...] DEPARTMENT OF | [address] | [place] [address] | | | PATHOLOGY | [address] | | | + + + + + | [facility] DEPARTMENT OF | [address] | [place] [address] | | | PATHOLOGY | [address] [...] + | [facility] | [facility] | [place] [address] | | | PATHOLOGY | [address] | | | + + + + + | [facility] DEPARTMENT OF | [address] | [place] [address] | | | PATHOLOGY | [address] [...] + | [facility] | [address] | [place] [address] | | | PATHOLOGY | [address] | | | + + + + + | [facility] | [address] | [place] [address] | | | PATHOLOGY | [address] [...] | + + + + + | [facility] DEPARTMENT OF | [address] [facility] | [place] [address] | | | PATHOLOGY | [address] | | | + + + + + | [facility] DEPARTMENT OF | [facility] | [place] [address] | | | PATHOLOGY | [address] | | | + + + + + documented in this encounter Visit Diagnoses Not on filedocumented in this encounter"
--- OUTSIDE RECORDS SUMMARY | ~2019-05-03 | XMS | Encounter Summary ---
Demographics + + + | Address | [address] | | | [place] [address] | + + + | Home Phone [...] + + + | Author | [facility] | + + + | Organization | [facility] | + + + | Address | Unknown | + + + | Phone | Unavailable | + + + Support + + + + + | Name | Relationship | Address | Phone | + + + + + | Scot Johnson | ECON | [address] | | | | | [place] [address] | | + + + + + Care Team Providers + +------+ + | Care Skin Lifter Bacon Name | Role | Phone | + [...] | | | | | [place], | | | | | | [place] [address] | | | +--------+ + + + [...] | | Patient: CARLINE MIN Med Rec: [id number] Sex F Bdate: 1970 | | Date/Time Data | | Entered Into [facility] | | Anesth PostOp | | Surgery Date [id number] 10/28/05 11:05 | | Anesthesiologist BHAVANA QUIÑONES 10/28/05 11:05 | | Resident Anesthesiolog CARRIE GONZALES 10/28/05 11:05 | | | + + documented in this encounter Visit Diagnoses Not on filedocumented in this encounter"
--- OUTSIDE RECORDS SUMMARY | ~2019-05-03 | XMS | Encounter Summary ---
Demographics + + + | Address | [address] | | | [place] [address] | + + + | Home Phone [...] | | | | | [place] [address] | | + + + + + Care Team Providers + +------+ + | Care Polygraph Examiner Name | Role | Phone | + +------+ + PCP | Unavailable | + +------+ + Encounter Details +--------+ + + + + | Date | Type | Department | Care Team | Description | +--------+ + + + + | 10/31/ | Respiratory | | Other, Faculty | | | 2006 | Therapy | | [phone] | | +--------+ + + + + [...] Wahl, | | | | | | SWIMMING POOL MAINTENANCE | | | | + + + [...] [facility] | [address] | [place], [place] | | | DIAGNOSTICS - | [place] | [address] | | | PULMONARY FUNCTION | | | | + + + + + documented in this encounter Visit Diagnoses Not on filedocumented in this encounter"
--- OUTSIDE RECORDS SUMMARY | ~2019-05-03 | XMS | Encounter Summary ---
Demographics + + + | Address | [address] | | | [place] [address] | + + + | Home Phone [...] | | | | | [place] [address] | | + + + + + | Robson Min | ECON | Unknown | | + + + + + | Isabella Whitehead | ECON | Unknown | | + + + + + Care Team Providers + +------+ + | Care Automatic Fancy Machine Operator Name | Role | Phone | + +------+ + PCP | Unavailable | + +------+ + Encounter Details +--------+ + + + + | Date | Type | Department | Care Team | Description | +--------+ + + + + | 02/21/ | Hospital | [facility] | Neno Walker | | | 2000 | Encounter | MED CTR SLEEP | MD Srinivas [address] | | | | | [place] [address] | [place] [facility] | | | | | [place] | [place] [address] | | | | | [address] | [phone] | | | | | [phone] | | | +--------+ + + + [...] [place] | | | | | | [address] | | | | | | | | +--------+---------+ + + + | 07/26/ | Office | Pulmonology | [place], | | | 2019 | Visit | | MD Cely GORE | | | | | | [place] | | | | | | [address] | | | | | | | | +--------+---------+ + + + documented as of this encounter Visit Diagnoses Not on filedocumented in this encounter"
--- OUTSIDE RECORDS SUMMARY | ~2019-05-03 | XMS | Encounter Summary ---
Demographics + + + | Address | [address] | | | [place] [address] | + + + | Home Phone [...] | | | | | [place] [address] | | + + + + + Care Team Providers + +------+ + | Care Supervisor Respiratory Name | Role | Phone | + [...] | | + +---------+ + + | [facility] DEPARTMENT OF | | | | | RADIOLOGY | | | | + +---------+ + + documented in this encounter Visit Diagnoses Not on filedocumented in this encounter"
--- OUTSIDE RECORDS SUMMARY | ~2019-05-03 | XMS | Encounter Summary ---
Demographics + + + | Address | [address] | | | [place] [address] | + + + | Home Phone [...] | | | | | [place] [address] | | + + + + + Care Team Providers + +------+ + | Care Vegetable Handler Name | Role | Phone | + +------+ + PCP | Unavailable | + +------+ + Encounter Details +--------+ + + + + | Date | Type | Department | Care Team | Description | +--------+ + + + + | 10/22/ | Respiratory | | Other, Faculty | | | 2006 | Therapy | | [phone] | | +--------+ + + + + [...] [facility] | [address] | [place], [place] | | | DIAGNOSTICS - | [address] | [address] | | | PULMONARY FUNCTION | | | | + + + + + documented in this encounter Visit Diagnoses Not on filedocumented in this encounter"
--- OUTSIDE RECORDS SUMMARY | ~2019-05-03 | XMS | Encounter Summary ---
Demographics + + + | Address | [address] | | | [place] [address] | + + + | Home Phone [...] | | | | | [place] [address] | | + + + + + | Robson Min | ECON | Unknown | | + + + + + | Isabella Whitehead | ECON | Unknown | | + + + + + Care Team Providers + +------+ + | Care Pasteurizer Name | Role | Phone | + [...] | | | | | pain, | [address] | [address] | | | | | generalized | Giovanna Blanton | [place], | | | | | follow up | [address] | [place] [address] | | | | | abd pain, | 3-106 | Phone: | | | | | nause & | [place] | [phone] | | | | | vomiting/per | [address] | Fax: | | | | | swathi/pcp | Phone: | [phone] | | | | | shade/brad/ | [phone] | | | | | | called for | | | | | | | referral | | | | | | | 6/18/14nns | | | | | | | Procedures | | | | | | | [place] OFFICE | | | | | | [...] + | 11/01/ | Office | [facility] | Cecilio Amato MD | Nausea & vomiting | | 2014 | Visit | GASTROENTEROLOGY | [address] | (Primary Dx); IBS | | | | [address] [facility] | [place], [place] | (irritable bowel | | | | [address] | [address] | syndrome) | | | | [address] | [phone] | | | | | [phone] | | | +--------+---------+ + + + [...] 50 mg by mouth 4 times daily. ftyufntmmc-dpirdtb-bhovfzvf (BUTALBITAL COMPOUND/ASA) per tablet One tablet by [...] Date Wrist pain Diabetes mellitus, type 2 ([facility]) Vitamin D deficiency Hypercholesterolemia Hypothyroidism Panic anxiety syndrome IBS (irritable bowel syndrome) Restless leg syndrome Urinary hesitancy Lumbago Nocturia Pyoderma gangreosum-LE Bipolar 1 disorder ([facility]) Hypertension Lymphedema Nausea and vomiting Reflux esophagitis GI bleeding Empyema lung ([facility]) 2005 right Knee pain CHRONIC TENSION HEADACHE [...] Ramos MD - 0 11/01/2013 12:00 AM [facility] GASTRO[facility]OLOGY [address] [facility] [address] [place] [address] FAX: [phone] OFFICE VISIT OUTPATIENT GI FOLLOWUP CHIEF COMPLAINT: [...] which was unremarkable, as well. The pat brandi does have a history of irritable bowel [...] I encouraged her to speak to her senior systems administrator regarding finding an alternative medication and discontinuing [...] discuss stopping azathioprine and hydrocodone, with her senior systems administrator. Cecilio Amato MD / Fany JOB #: [id number] signed by Cecilio Amato MD at 11/02/2013 [...] [place] | | | | | | [address] | | | | | | | | +--------+---------+ + + + | 07/26/ | Office | Pulmonology | Navdeep Grande, | | | 2019 | Visit | | [address] | | | | | | [place] | | | | | | [address] | | | | | | | | +--------+---------+ + + + documented as of this encounter Visit Diagnoses + + | Diagnosis | + + | Nausea & vomiting - Primary Nausea with vomiting | + + | IBS (irritable bowel syndrome) Irritable bowel syndrome | + + documented in this encounter"
--- OUTSIDE RECORDS SUMMARY | ~2019-05-03 | XMS | Encounter Summary ---
Demographics + + + | Address | [address] | | | [place] [address] | + + + | Home Phone [...] | | | | | [place] [address] | | + + + + + Care Team Providers + +------+ + | Care Water Supply Technician Name | Role | Phone | + +------+ + PCP | Unavailable | + +------+ + Encounter Details +--------+ + + + + | Date | Type | Department | Care Team | Description | +--------+ + + + + | 10/31/ | Respiratory | | Other, Faculty | | | 2006 | Therapy | | [phone] | | +--------+ + + + + [...] | | | | Y | EMPLOYMENT OFFICER | | | | + + + [...] [facility] | [address] | [place], [place] | | | DIAGNOSTICS - | [address] | [address] | | | PULMONARY FUNCTION | | | | + + + + + documented in this encounter Visit Diagnoses Not on filedocumented in this encounter"
--- OUTSIDE RECORDS SUMMARY | ~2019-05-03 | XMS | Encounter Summary ---
Demographics + + + | Address | [address] | | | [place] [address] | + + + | Home Phone [...] | | | | | [place] [address] | | + + + + + Care Team Providers + +------+ + | Care Video Systems Engineer Name | Role | Phone | + +------+ + PCP | Unavailable | + +------+ + Encounter Details +--------+ + + + + | Date | Type | Department | Care Team | Description | +--------+ + + + + | 10/23/ | Respiratory | | Other, Faculty | | | 2006 | Therapy | | [phone] | | +--------+ + + + + [...] [facility] | [address] | [place], [place] | | | DIAGNOSTICS - | [address] | [address] | | | PULMONARY FUNCTION | | | | + + + + + documented in this encounter Visit Diagnoses Not on filedocumented in this encounter"
--- OUTSIDE RECORDS SUMMARY | ~2019-05-03 | XMS | Encounter Summary ---
Demographics + + + | Address | [address] | | | [place] [address] | + + + | Home Phone [...] | | | | | [place] [address] | | + + + + + | Robson Min | ECON | Unknown | | + + + + + | Isabella Whitehead | ECON | Unknown | | + + + + + Care Team Providers + +------+ + | Care General Manager Food Name | Role | Phone | + [...] | HOSPITAL NEUROLOGY | [address] | | | | | CLINIC [address] | [place] | | | | | [address] [place], | [address] | | | | | [place] [address] | | | | | | [phone] | | | +--------+ + + + [...] [place] | | | | | | [address] | | | | | | | | +--------+---------+ + + + | 07/26/ | Office | Pulmonology | Navdeep Grande, | | | 2019 | Visit | | MD [address] | | | | | | [place] | | | | | | [address] | | | | | | | | +--------+---------+ + + + documented as of this encounter Visit Diagnoses Not on filedocumented in this encounter"
--- OUTSIDE RECORDS SUMMARY | ~2019-05-03 | XMS | Encounter Summary ---
Demographics + + + | Address | [address] | | | [place] [address] | + + + | Home Phone [...] + + | Author | [facility] | + + + | Organization | [facility] | + + + | Address | Unknown | + + + | Phone | Unavailable | + + + Support + + + + + | Name | Relationship | Address | Phone | + + + + + | Scot Johnson | ECON | [address] | | | | | [place] [address] | | + + + + + Care Team Providers + +------+ + | Care Curb Machine Operator Name | Role | Phone | + +------+ + | Bart Ba DO | PCP | | + +------+ + Encounter Details +--------+ + + + + | Date | Type | Department | Care Team | Description | +--------+ + + + + | 03/28/ | Abstract | Neurology at | Unknown . | | | 2018 | | [facility] & | | | | | | Healing [address] | | | | | | Aleks Hanna Mailcode: | | | | | | [facility] | | | | | | Health and Healing, | | | | | | | | | | | | [place], [place] | | | | | | [address] | | | | | | [phone] | | | +--------+ + + + [...]
--- OUTSIDE RECORDS SUMMARY | ~2019-05-03 | XMS | Encounter Summary ---
Demographics + + + | Address | [address] | | | [place] [address] | + + + | Home Phone [...] | | | | | [place] [address] | | + + + + + | Robson Min | ECON | Unknown | | + + + + + | Isabella Whitehead | ECON | Unknown | | + + + + + Care Team Providers + +------+ + | Care Pamphlet Distributor Name | Role | Phone | + [...] + + | 09/25/ | Telephone | [facility] | Cecilio Amato MD | Appointment | | 2013 | | GASTROENTEROLOGY | [address] | (schedule gastric | | | | [address] [facility] | [place], [place] | emptying study); | | | | [address] | [address] | Results (lab test | | | | [address] | [phone] | celiac sprue test) | | | | [phone] | | | +--------+ + + + [...] [place] | | | | | | [address] | | | | | | | | +--------+---------+ + + + | 07/26/ | Office | Pulmonology | Navdeep Grande, | | | 2019 | Visit | | [address] | | | | | | [place] | | | | | | [address] | | | | | | | | +--------+---------+ + + + documented as of this encounter Visit Diagnoses Not on filedocumented in this encounter"
--- OUTSIDE RECORDS SUMMARY | ~2019-05-03 | XMS | Encounter Summary ---
Demographics + + + | Address | [address] | | | [place] [address] | + + + | Home Phone [...] | | | | | [place] [address] | | + + + + + | Robson Min | ECON | Unknown | | + + + + + | Isabella Whitehead | ECON | Unknown | | + + + + + Care Team Providers + +------+ + | Care Pocket Closer Name | Role | Phone | + [...] + + | 09/25/ | Telephone | [facility] | Cecilio Amato MD | Appointment | | 2013 | | GASTROENTEROLOGY | [address] | (schedule gastric | | | | [address] [facility] | [place], [place] | emptying study); | | | | [address] | [address] | Results (lab test | | | | [address] | [phone] | celiac sprue test) | | | | [phone] | | | +--------+ + + + [...] 2019 | Visit | | [address] | | | | | | [place] | | | | | | [address] | | | | | | | | +--------+---------+ + + + | 07/26/ | Office | Pulmonology | Navdeep Grande, | | | 2019 | Visit | | [address] | | | | | | [place] | | | | | | [address] | | | | | | | | +--------+---------+ + + + documented as of this encounter Visit Diagnoses Not on filedocumented in this encounter"
--- OUTSIDE RECORDS SUMMARY | ~2019-05-03 | XMS | Clinical Summary ---
Demographics + + + | Address | [address] | | | [place] [address] | + + + | Home Phone [...] | | | | | [place] [address] | | + + + + + Care Team Providers + +------+ + | Care Acquisition Analyst Name | Role | Phone | + +------+ + | Bart Ba DO | PCP | | + +------+ + Source Comments [facility] is fully live on both [facility] Ambulatory and [facility] InPatient.[facility] Allergies + + + + [...]
--- OUTSIDE RECORDS SUMMARY | ~2019-05-03 | XMS | Encounter Summary ---
Demographics + + + | Address | [address] | | | [place] [address] | + + + | Home Phone [...] | | | | | [place] [address] | | + + + + + Care Team Providers + +------+ + | Care Rn Intake Name | Role | Phone | + [...] | | , [address] | [place] [address] | [place], [place] | | | | | [place] | Phone: | [phone] | | | | | OFFICE/OUTPT | [phone] | Phone: | | | | | | Fax: | [phone] | | | | | VISIT,EST,LE | [phone] | Fax: | | | | | VL III 1 | | [phone] | | | | | consult, 3 [...] | 2007 | Visit | Medical at [facility] [address] | MD [address] | Pyoderma, | | | | Floor [address] | [place], [place] | Unspecified | | | | Ave Mailcode: [facility] | [address] | | | | | [facility] | [phone] | | | | | and Healing, | | | | | | Building | | | | | | Floor [place], [place] | | | | | | [address] | | | | | | [phone] | | | +--------+---------+ + + + [...] assessment and agree with the documentation. Zayda Odraz M.D. Thread Inspector of Dermatology. Sandy Durbin, Azucena - 008 [...] Jacobson MD Resident PGY-2, Department of Dermatology [facility] [place] documented in this encoun ter Plan of [...] Lab) | | | | | | [facility] | | | | | | [address] | | | | [address] | | | | | | [place], [place] | | | | | | [id number]: Test | | | | | | performed at [place] | | | | | | [facility] | | | | | | Laboratory. | | | | + + + + + + + + | Specimen | + + | Leg - Left | + + + + + + + | Performing | Address | City/State/Zipcode | Phone Number | | Organization | | | | + + + + + | [facility] | [address] | [place] [address] | | | LAB-MICRO | | | | + + + + + documented in this encounter Visit Diagnoses + + | Diagnosis | + + | Ulcer - Primary Chronic ulcer of unspecified site | + + | Pyoderma, unspecified | + + documented in this encounter"
--- OUTSIDE RECORDS SUMMARY | ~2019-05-03 | XMS | Encounter Summary ---
Demographics + + + | Address | [address] | | | [place] [address] | + + + | Home Phone [...] | | | | | [place] [address] | | + + + + + Care Team Providers + +------+ + | Care Slip Seat Coverer Name | Role | Phone | + [...] as of this encounter Progress Notes Interface, Casting Director In - 01/09/2006 1:08 AM [facility] [place] [facility] [place], [place] [address] or April 04, 2001 Tracy Koo M.D. [address] [address] RE: CARLINE MIN MR #: [id number] Dear [...] her to travel all the way from [place] to [place] for these appointments, but unfortunately, I have [...] has a child and lives outside of [place], [place]. She does not smoke, drink, or [...] 2 through 5 bilaterally. She has preserved data processing clerk strength, but lacks full data processing clerk range of motion of 4th and 5th [...] it occurred in a local area of [place], and the patient cannot recall much information [...] referring your patient to Rheumatology Clinic at [facility]. Please contact me after you receive this letter with your thoughts on Remicade in this patient. You can page me through the [facility] water plant pump operator supervisor at [phone] and ask them to page Dr. Dorene Waite, or you can leave a message and a time for me to contact you at [phone]. Our fax number at the clinic is [phone]. Sincerely Dorene Waite M.D. Rheumatology Fellow Deyvi Lainez M.D. MA / [id number] / [id number] / [id number] / [id number] signed by Interface, Casting Director In at 01/09/2006 1:08 AM PDTdoc umented in this encounter Plan of Treatment Not on filedocumented as of this encounter Visit Diagnoses Not on filedocumented in this encounter"
--- OUTSIDE RECORDS SUMMARY | ~2019-05-03 | XMS | Encounter Summary ---
Demographics + + + | Address | [address] | | | [place] [address] | + + + | Home Phone [...] | | | | | [place] [address] | | + + + + + | Robson Min | ECON | Unknown | | + + + + + | Isabella Whitehead | ECON | Unknown | | + + + + + Care Team Providers + +------+ + | Care Crimping Machine Operator For Metal Name | Role | Phone | + [...] | | | Pulmonology | obstructive | [address] | | | | | pulmonary | [place] | [place], | | | | | disease, | [place], | [place] [address] | | | | | unspecified | [place] | Phone: | | | | | ([facility]) | [address] | [phone] | | | | | Obstructive | Phone: | Fax: | | | | | sleep apnea | [phone] | [phone] | | | | | (adult) | Fax: | | | | | | (pediatric) | [phone] | | | | | | Procedures [...] + + | 01/25/ | [facility] [place] | Navdeep [place], | COPD, moderate (HCC) | | 2019 | Visit | PULMONARY [address] | (Primary Dx); | | | | [place], | [place], [place] | Tobacco use | | | | [place] [address] | [address] | disorder; Alveolar | | | | [phone] | | hypoventilation; | | | | [...] Wash your hands often. Use alcohol-based hand diesel truck driver when you don t have access to [...] and open the door. Date Last Reviewed: 03/19/201619992478-1727 [employer]. [address] [place] [address], [place] [address]. All righ ts reserved. This information is [...] Angina pectoris (HCC) Arrhythmia Bipolar 1 disorder ([facility]) CHRONIC TENSION HEADACHE Classical migraine without mention of intractable migraine Diabetes mellitus, type 2 ([facility]) Empyema lung ([facility]) 2005 right GI bleeding Hypercholesterolemia Hypertension Hypothyroidism IBS (irritable bowel syndrome) Knee pain Lymphedema Myocardial infarction ([facility]) Nausea and vomiting Nocturia Obesity Panic anxiety syndrome Pneumonia Pyoderma gangreosum-LE RA (rheumatoid arthritis) ([facility]) Followed by Dr. Becerra Rheumologist in [place] Reflux esophagitis Restless leg syndrome Urinary [...] Gluc Sensor (FREESTYLE HUAN 14 DAY SENSOR) [facility], , Disp: , Rfl: DOK 100 MG capsule, Take 100 mg by mouth 2 times daily., Disp: , Rfl: ergocalciferol (VITAMIN D-2) 50,000 units capsule, Take 50,000 Units by mouth Once a w muckleshoot., Disp: , Rfl: fluticasone-salmeterol (ADVAIR HFA) 115-21 [...] daily., Disp: , Rfl: Respiratory Therapy Supplies [facility], Portable oxygen concentrator to provide O2 at [...] QUADR W/PRES (PED/ADOL/ADULT) MULTIDOSE 01/27/2017, 02/10/2018 INFLUENZA, A2V4-48, UNSPECIFIED 03/09/2009 INFLUENZA, UNSPECIFIED FORMULATION 04/27/2000, 02/04/2011, [...] nths. 2. Smoking cessation strongly encouraged. CC: Juantio Avery Tdocumented in this encounter Plan of [...] [place] | | | | | | [id number] | | | | | | | | +--------+---------+ + + + | 07/26/ | Office | Pulmonology | Navdeep Grande, | | | 2020 | Visit | | [address] | | | | | | [place] | | | | | | [address] | | | | | | | [...]
--- OUTSIDE RECORDS SUMMARY | ~2019-05-03 | XMS | Encounter Summary ---
Demographics + + + | Address | [address] | | | [place] [address] | + + + | Home Phone [...] | | | | | [place] [address] | | + + + + + Care Team Providers + +------+ + | Care Delivery Table Operator Name | Role | Phone | [...]
--- OUTSIDE RECORDS SUMMARY | ~2019-05-03 | XMS | Encounter Summary ---
Demographics + + + | Address | [address] | | | [place] [address] | + + + | Home Phone [...] | | | | | [place] [address] | | + + + + + Care Team Providers + +------+ + | Care General Expeditor Name | Role | Phone | + [...] as of this encounter Progress Notes Interface, Airframe Technical Officer In - 03/19/2006 1:11 AM [facility] [place] [facility] [address] [place], [place] [address] or May 16, 1999 Leland Marcum D. [address] [place] [address] RE: CARLINE MIN MR #: [id number] Dear Dr. Bright: I had the pleasure of evaluating your patient, Carline Min, in Rheumatology Clinic today. As you know, she is a 28-year-old female with rheumatoid arthritis, who was previously followed in this clinic, who presents to [facility]. She has had symptoms since around 1991. [...] has full range of motion and good occupational therapist assistants strength. There is no laboratory data available [...] months. This case was discussed with staff thermodynamics professor, Dr. Deyvi Lainez, who also examined the patient and agrees with the above. Thank you for allowing us to participate in the care of Mrs. Min, and please call if you wish to discuss her case any further. Lastly, we would appreciate if you could forward the results of her laboratory tests to us #[phone] (fax number). Sincerely, Ameya Steen M.D. Resident, Internal Medicine Deyvi Lainez M.D. Clinical Auditor, Rheumatology [facility] / [id number] / [id number] / [id number] / [id number] signed by Interface, Airframe Technical Officer In at 03/19/2006 1:11 AM PSTdocume nted in this encounter Plan of Treatment Not on filedocumented as of this encounter Visit Diagnoses Not on filedocumented in this encounter"
--- OUTSIDE RECORDS SUMMARY | ~2019-05-03 | XMS | Encounter Summary ---
Demographics + + + | Address | [address] | | | [place] [address] | + + + | Home Phone [...] | | | | | [place] [address] | | + + + + + Care Team Providers + +------+ + | Care Field Artillery Officer Name | Role | Phone | [...] | Transcriptions | + + | Interface, Senior Qc Technician In - 11/19/2005 2:03 AM PDT | | [id number] | | [id number] [place]Z [place] [id number] | | | | Date: 10/27/2005 | | | | Attending Surgeon: Anibal Starr M.D. | | | | Occupational Therapy Assistant(s): Valerie Stone | | Ayo Calabrese MD [...] ribs | | were reapproximated with interrupted zukqce-ct-xahsm #2 Vicryls. The | | serratus and [...] | | PS / HS | | [id number] / [id number] / [id number] / [id number] | | | | | | | | | | | | Electronically signed by Anibal Starr 11-18-2005 08:31:32 AM | + + documented in this encounter Visit Diagnoses Not on filedocumented in this encounter"
--- OUTSIDE RECORDS SUMMARY | ~2019-05-03 | XMS | Encounter Summary ---
Demographics + + + | Address | [address] | | | [place] [address] | + + + | Home Phone [...] | | | | | [place] [address] | | + + + + + Care Team Providers + +------+ + | Care Museum Host/Hostess Name | Role | Phone | + +------+ + PCP | Unavailable | + +------+ + Encounter Details +--------+ + + + + | Date | Type | Department | Care Team | Description | +--------+ + + + + | 10/22/ | Respiratory | | Other, Faculty | | | 2006 | Therapy | | [phone] | | +--------+ + + + + [...] | | | | | Y | WOMEN SPECIALIST | | | | + + [...] [facility] | [address] | [place], [place] | | | DIAGNOSTICS - | [address] | [address] | | | PULMONARY FUNCTION | | | | + + + + + documented in this encounter Visit Diagnoses Not on filedocumented in this encounter"
--- OUTSIDE RECORDS SUMMARY | ~2019-05-03 | XMS | Encounter Summary ---
Demographics + + + | Address | [address] | | | [place] [address] | + + + | Home Phone [...] | | | | | [place] [address] | | + + + + + | Robson Min | ECON | Unknown | | + + + + + | Isabella Whitehead | ECON | Unknown | | + + + + + Care Team Providers + +------+ + | Care Education Site Manager Name | Role | Phone | [...] + + | 08/25/ | Telephone | [facility] [place] | Navdeep [place], | Results (nocturnal | | 2013 | | PULMONARY [address] | MD [address] | oximetry on room | | | | [place], | [place] | air) | | | | [place] [address] | [address] | | | | | [phone] | | | +--------+ + + + [...] [place] | | | | | | [address] | | | | | | | | +--------+---------+ + + + | 07/26/ | Office | Pulmonology | Navdeep Grande, | | | 2019 | Visit | | MD [address] | | | | | | [place] | | | | | | [address] | | | | | | | | +--------+---------+ + + + documented as of this encounter Visit Diagnoses Not on filedocumented in this encounter"
--- OUTSIDE RECORDS SUMMARY | ~2019-05-03 | XMS | Encounter Summary ---
Demographics + + + | Address | [address] | | | [place] [address] | + + + | Home Phone [...] | | | | | [place] [address] | | + + + + + | Robson Min | ECON | Unknown | | + + + + + | Isabella Whitehead | ECON | Unknown | | + + + + + Care Team Providers + +------+ + | Care Grades 9 Through 12 Teacher Name | Role | Phone | [...] + + | 04/18/ | Hospital | [facility] | Loi De Jesus Patel, | NSTEMI (non-ST | | 2019 - | Encounter | [facility] | [address] | elevated myocardial | | | | CARE FLOOR [address] | [place] [address] | infarction) (HCC) | | 04/20/ | | [address] | [phone] | (Primary Dx); Chest | | 2019 | | [place], [place] | Stevo Hitchcock MD | pain, unspecified | | | | [address] | [address] | type; COPD, frequent | | | | [phone] | [place] [address] | exacerbations (HCC) | | | | | [phone] | | | | | | | | | | | | Iva Buck DO | | | | | | [address] | | | | | | [place] [address] | | | | | | [phone] | | | | | | | [...] reportedly had a mildly elevated troponin in [place], t roponins at [facility] were [...] migh t be different from the original. [facility] Service: Cardiology Progress Note Hospital Day: [...] portedly had a mildly elevated troponin in [place], troponins here have been undetectable. EKG was [...] should follow up with me in the [place] rdiology office 4 weeks post discharge. Thank you for allowing me to participate in the care of this patient. Code Status: Prior Primary Care Physician: Adele Batista DO pIva pearson DO - 04/19/2019 7:22 AM PST [facility] Adult Hospitalist Progress Note Hospital Day: [...] reportedly had a mildly elevated troponin in [place], troponins here have been undete ctable. EKG [...] Kelly DO - 03/21 4:15 PM PST [facility] Service: Cardiology Initial Consult Note Name of Supervisor [employer]: Laine Batista DO Reason for Consultation: Chest [...] she presented to the emergency department in [place]. Hannah harmon reportedly had a very mildly elevated troponin in the ER in [place] and was subsequently transferred to [facility]. Here, her troponin has been undetectable. EKG [...] Diabetes mellitus, type 2 (HCC) Empyema lung ([facility]) 2006 right GI bleeding Hypercholesterolemia Hypertension Hypothyroidism IBS (irritable bowel syndrome) Knee pain Lymphedema Myocardial infarction (HCC) Nausea and vomiting Nocturia Obesity Panic anxiety syndrome Pneumonia Pyoderma gangreosum-LE RA (rheumatoid arthritis) ([facility]) Followed by Dr. Becerra Rheumologist in [place] Reflux esophagitis Restless leg syndrome Urinary [...] file Gets together: Not on file Attends pentecostalism service: Not on file Active member of [...] heart rate was 50BPM, the highest heart [id number], [id number]. During this recording inte rval, there were [...] childs in sticky note also. Brooke Self [facility] - 04/18/2019 2:19 PM PSTRx Admission Medication [...] [place] | | | | | | [address] | | | | | | | | +--------+---------+ + + + | 07/26/ | Office | Pulmonology | Navdeep Grande, | | | 2019 | Visit | | [address] | | | | | | [place] | | | | | | [address] | | | | | | | [...] | | | ?MRN: | | | [id number] | | | [id number] | | | riteri | | | [...] | | | ton:? | | | [id number] | | | -2536. | | | [...] | | | St. | | | [facility] | | | y | | | [...] | | | St. | | | [facility] | | | y H. | | [...] | | | St. | | | [facility] | | | y H. | | [...] | | | St. | | | [facility] | | | y H. | | [...] | | | St. | | | [facility] | | | y H. | | [...] | | | St. | | | [facility] | | | y H. | | [...] | | | St. | | | [facility] | | | y H. | | [...] | | | St. | | | [facility] | | | y H. | | [...] | | | [id number] | | | [id number] | | | 93 | | | [...] | | | | | | MDRD [facility] traceable | | | | | | equation.Testing | | | | | | performed at [facility];[address] | | | | | | [facility];[place], [place] | | | | | | [address] | | | | + + + + + + + + | Specimen | + + | Blood | + + + + + + + | Performing | Address | City/State/Zipcode | Phone Number | | Organization | | | | + + + + + | [facility] | [address] | [place] [address] | [phone] | + + + + + Phosphorus (04/20/2019 6:16 AM PST) + + + + + + | Component | Value | Ref Range | Performed | Pathologist | | | | | At | Signature | + + + + + + | Phosphorus | 4.9 (H)Comment: Testing | 2.3 - 4.8 mg/dL | TE | | | | performed at [facility];[address] | | LABORATORY | | | | [address];[place] | | | | | | [address] | | | | + + + + + + + + | Specimen | + + | Blood | + + + + + + + | Performing | Address | City/State/Zipcode | Phone Number | | Organization | | | | + + + + + | [facility] | [address] | [place] [address] | [phone] | + + + + + Magnesium (04/20/2019 6:16 AM PST) + + + + + + | Component | Value | Ref Range | Performed | Pathologist | | | | | At | Signature | + + + + + + | Magnesium | 1.8Comment: Testing | 1.7 - 2.4 mg/dL | TE | | | | performed at [facility];[address] | | LABORATORY | | | | [address];[place], [place] | | | | | | [address] | | | | + + + + + + + + | Specimen | + + | Blood | + + + + + + + | Performing | Address | City/State/Zipcode | Phone Number | | Organization | | | | + + + + + | [facility] | [address] | [place] [address] | [phone] | + + + + + CBC [...] [facility] | | | | performed at [facility];[address] | | LABORATORY | | | | [place] | | | | | | [address] | | | | + + + + + + + + | Specimen | + + | Blood | + + + + + + + | Performing | Address | City/State/Zipcode | Phone Number | | Organization | | | | + + + + + | [facility] | [address] | [place] [address] | [phone] | + + + + + NM [...] at | | | | | | [facility];[address] [place] [address] | | | | | | Bl;[place] [address] | | | | + + + + + + + + | Specimen | + + | Blood | + + + + + + + | Performing | Address | City/State/Zipcode | Phone Number | | Organization | | | | + + + + + | [facility] | [address] | [place] [address] | [phone] | + + + + + Troponin [...] at | | | | | | [facility];[address] [place] [address] | | | | | | [facility];[place] [address] | | | | + + + + + + + + | Specimen | + + | Blood | + + + + + + + | Performing | Address | City/State/Zipcode | Phone Number | | Organization | | | | + + + + + | [facility] | [address] | [place] [address] | [phone] | + + + + + Urinalysis [...] - 1.030 | [facility] | | | [place], | | | LABORATORY | | | [...] TE | | | | performed at [facility];[address] | | LABORATORY | | | | [address];[place], [place] | | | | | | [address] | | | | + + + + + + + + | Specimen | + + | Urine | + + + + + + + | Performing | Address | City/State/Zipcode | Phone Number | | Organization | | | | + + + + + | [facility] | [address] | [place] [address] | [phone] | + + + + + Drugs [...] | | | | | performed at [facility];[address] | | | | | | [facility];[place], [place] | | | | | | [address] | | | | + + + [...] HOSPITAL LAB[facility]ATORY | [address] | [place] [address] | [phone] | + + + + + ECG [...] | | | | | ONLY, -COMPUTER (139), | | | | | | graphic editor Beth Quinn | | | | [...] | | | Calculated | performed at [facility], [address] | | LABORATORY | | | | [address], | | | | | | [place] [address] | | | | + + + + + + + + | Specimen | + + | Blood | + + + + + + + | Performing | Address | City/State/Zipcode | Phone Number | | Organization | | | | + + + + + | [facility] | [address] | [place] [address] | [phone] | + + + + + Hemoglobin [...] | | | | | performed at [facility], [address] | | | | | | [facility], | | | | | | [place] [address] | | | | + + + + + + + + | Specimen | + + | Blood | + + + + + + + | Performing | Address | City/State/Zipcode | Phone Number | | Organization | | | | + + + + + | [facility] | [address] | [place] [address] | [phone] | + + + + + Protime [...] | | | | | performed at [facility] | | | | | | [facility];[place], [place] | | | | | | [address] | | | | + + + + + + + + | Specimen | + + | Blood | + + + + + + + | Performing | Address | City/State/Zipcode | Phone Number | | Organization | | | | + + + + + | [facility] | [address] | [place] [address] | [phone] | + + + + + Troponin [...] at | | | | | | [facility];[address] [facility] | | | | | | Bl;[place] [address] | | | | + + + + + + + + | Specimen | + + | Blood | + + + + + + + | Performing | Address | City/State/Zipcode | Phone Number | | Organization | | | | + + + + + | [facility] | [address] | [place] [address] | [phone] | + + + + + Comprehensive [...] | | | | | performed at [facility];[address] | | | | | | [facility];[place], [place] | | | | | | [address] | | | | + + + + + + + + | Specimen | + + | Blood | + + + + + + + | Performing | Address | City/State/Zipcode | Phone Number | | Organization | | | | + + + + + | [facility] | [address] | [place] [address] | [phone] | + + + + + CBC [...] at | | | | | | [facility];[address] [place] [address] | | | | | | Blvd;[place] [address] | | | | + + + + + + + + | Specimen | + + | Blood | + + + + + + + | Performing | Address | City/State/Zipcode | Phone Number | | Organization | | | | + + + + + | [facility] | [address] | [place] [address] | [phone] | + + + + + documented [...]
--- OUTSIDE RECORDS SUMMARY | ~2019-05-03 | XMS | Encounter Summary ---
Demographics + + + | Address | [address] | | | [place] [address] | + + + | Home Phone [...] | | | | | [place] [address] | | + + + + + | Robson Min | ECON | Unknown | | + + + + + | Isabella Whitehead | ECON | Unknown | | + + + + + Care Team Providers + +------+ + | Care Weight Control Lecturer Name | Role | Phone | + +------+ + | Bart Ba DO | PCP | | + +------+ + Encounter Details +--------+ + + + + | Date | Type | Department | Care Team | Description | +--------+ + + + + | 10/18/ | Hospital | [facility] | Navdeep Grande, | Abnormal chest CT | | 2012 | Encounter | MED CTR XRAY [address] | MD [address] | | | | | [place] | [place], [place] | | | | | [place] [address] | [address] | | | | | [phone] | | | +--------+ + + + [...] | 0 | 10/08/19 | | | ejloohsuyz-gqkznbz-q | every 6 hours as | | [...] [place] | | | | | | [id number] | | | | | | | | +--------+---------+ + + + | 07/26/ Office | Pulmonology | Navdeep Grande, | | | 2019 | Visit | | [address] | | | | | | [place] | | | | | | [address] | | | | | | | [...] Performed At | + + + | [facility] | [place] | | Department [address] [facility] | [facility] | | [ rep [address]] [ rep [facility] | | st zip] Signed | - IMAGING | | | | | Patient Name: CARLINE MIN Physician: | | | RODRI : 1970 Age: 42 Sex: F Unit #: [id number] | | | Exam Date: 10/18/12 [place] [facility] [place] | | | Report #: [id number] Page: | | | %(RAD)RES..mtdd.print.filter("pg") of %(RAD) | | | RES..mtdd.print.filter("tpg") | | | | | | Accession Number: [id number] | | | [facility] [...] Transcribed Date/Time: 10/18/2012 12:20 | | | Binder Sorter: <<Signature on | | | File>> | | | Ace Avery MD10/18/12 1439 <Electronically signed by | | | Ace Avery MD> Ace Avery MD 10/18/12 | | | [address] Binder Sorter: Maria L Nsfwrdteziybu10/02/13 1220 | | | Navdeep Grande MD | | + + + + + + + + | Performing | Address | City/State/Zipcode | Phone Number | | Organization | | | | + + + + + | [facility] | [address] | [place] | [phone] | | [facility] | | [address] | | | - IMAGING | | | | + + + + + documented in this encounter Visit Diagnoses + + | Diagnosis | + + | Abnormal chest CT Nonspecific (abnormal) findings on radiological and other | | examination of other intrathoracic organs | + + documented in this encounter
--- OUTSIDE RECORDS SUMMARY | ~2019-05-03 | XMS | Encounter Summary ---
Demographics + + + | Address | [address] | | | [place] [address] | + + + | Home Phone [...] | | | | | [place] [address] | | + + + + + | Robson Min | ECON | Unknown | | + + + + + | Isabella Whitehead | ECON | Unknown | | + + + + + Care Team Providers + +------+ + | Care Skills Auditor Name | Role | Phone | + [...] | Abnormal | MD Navdeep | [address] | | | | | chest CT | [address] | [place], | | | | | Procedures | [address] | [place] [address] | | | | | CT Chest wo | [place], | Phone: | | | | | [place] | [place] [address] | [phone] | | | | | | Phone: | Fax: | | | | | | [phone] | [phone] | | | | | | Fax: | | | | | | | [phone] | | +--------+--------+ + + + + [...] | Abnormal | MD Navdeep | [address] | | | | | chest CT | [address] | [place], | | | | | Procedures | [place] | [place] [address] | | | | | CT Chest wo | [place], | Phone: | | | | | [place] | [place] [address] | [phone] | | | | | | Phone: | Fax: | | | | | | [phone] | [phone] | | | | | | Fax: | | | | | | | [phone] | | +--------+--------+ + + + + Encounter Details +--------+ + + + + | Date | Type | Department | Care Team | Description | +--------+ + + + + | 04/24/ | Hospital | [facility] | Navdeep Gradne, | Abnormal chest CT | | 2015 | Encounter | MED CTR CT [address] | MD [address] | | | | | [place], | [place], [place] | | | | | [place] [address] | [address] | | | | | [phone] | | | +--------+ + + + [...] | 0 | 10/08/19 | | | [id number]-xbskbfs-k | every 6 hours as | | [...] [place] | | | | | | [address] | | | | | | | | +--------+---------+ + + + | 07/26/ | Office | Pulmonology | Navdeep Grande, | | | 2019 | Visit | | [address] | | | | | | [place] | | | | | | [id number] | | | | | | | [...] + | MISCELLANEOUS LAB | | | [phone] | + +---------+ + + | MISCELANIOUS LAB | | | [phone] | + +---------+ + + documented in this encounter Visit Diagnoses + + | Diagnosis | + + | Abnormal chest CT Nonspecific (abnormal) findings on radiological and other | | examination of other intrathoracic organs | + + documented in this encounter"
--- OUTSIDE RECORDS SUMMARY | ~2019-05-03 | XMS | Encounter Summary ---
Demographics + + + | Address | [address] | | | [place] [address] | + + + | Home Phone [...] | | | | | [place] [address] | | + + + + + Care Team Providers + +------+ + | Care Press Set Up Name | Role | Phone | [...] | | | | [facility], | | | | | | [place] [address] | | | | | | [phone] | | | +--------+ + + + [...] + + + | [facility] | [address] | [place] [address] | | | LABORATORY | | | [...] [facility] | [address] [facility] | [place] [address] | | | PATHOLOGY | [address] | | | + + + + + | [facility] | [address] | [place] [address] | | | PATHOLOGY | [address] | | | + + + + + documented in this encounter Visit Diagnoses Not on filedocumented in this encounter"
--- OUTSIDE RECORDS SUMMARY | ~2019-05-03 | XMS | Encounter Summary ---
Demographics + + + | Address | [address] | | | [place] [address] | + + + | Home Phone [...] | | | | | [place] [address] | | + + + + + | Robson Min | ECON | Unknown | | + + + + + | Isabella Whitehead | ECON | Unknown | | + + + + + Care Team Providers + +------+ + | Care Rotational Moulding Operator Name | Role | Phone | [...] | | | | with aura, | NURSING EDUCATOR [address] | | | | | intractable, | [address] | [address], [place] [place] | | | | | without | [address] | [place], [place] | | | | | status | [place], [place] | [address] Phone: | | | | | migrainosus | [address] | [phone] | | | | | Procedures | Phone: | Fax: | | | | | [facility] | [phone] | [phone] | | | | | INJECTION | Fax: | | | | | | [facility] CLINIC | [phone] | | | | | | PROCEDURE [...] (Primary Dx) | | | | [place] [address] | | | | | | [phone] | | | +--------+ + + + [...] [place] | | | | | | [address] | | | | | | | | +--------+---------+ + + + | 07/26/ | Office | Pulmonology | Navdeep Grande, | | | 2019 | Visit | | [address] | | | | | | [place] | | | | | | [address] | | | | | | | [...]
--- OUTSIDE RECORDS SUMMARY | ~2019-05-03 | XMS | Encounter Summary ---
Demographics + + + | Address | [address] | | | [place] [address] | + + + | Home Phone [...] + + + + + | Isabella Escoabr | ECON | [address] | | | | | [place] [address] | | + + + + + | Robson Escobar | ECON | Unknown | | + + + + + | Isabella Whitehead | ECON | Unknown | | + + + + + Care Team Providers + +------+ + | Care Management Internship Name | Role | Phone | + +------+ + | Herman Ba DO | PCP | | + +------+ + Encounter Details +--------+ + + + + | Date | Type | Department | Care Team | Description | +--------+ + + + + | 09/05/ | Hospital | [facility] | Betsey Connolly DO | Metabolic alkalosis; | | 2015 - | Encounter | [facility] | [address] [facility] | Diabetes mellitus, | | | | CLINICAL DECISION | [place] [address] | type 2 ([facility]); Drug | | 09/11/ | | [address] [place] [address] | [phone] | overdose, sequela; | | 2014 | | [place], [place] | | Hypokalemia; | | | | [address] | | Hypophosphatemia; | | | | [phone] | | Metabolic | | | | | | encephalopathy; | | | | | | Methamphetamine | | | | | | abuse; Obesity (BMI | | | | | | 30.0-34.9); RA | | | | | | (rheumatoid | | | | | | arthritis) ([facility]); | | | | | | Sinus tachycardia; | | | | | | Seizure ([facility]); Acute | | | | | | respiratory | | | | | | alkalosis; Metabolic | | | | | | acidosis; Acute | | | | | | respiratory failure | | | | | | ([facility]); Hypoxia; | | | | [...] Summaries by Barrington Pride MD at 09/13/14 0687 Author: Barrington Pride MD Service: (none) Author Type: Physician Filed: 09/13/14 4756 Date of Service: 09/13/140 Status: Signed Broadloom Weaver: Barrington Pride MD (Physician) 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 You may get the following medications from [...] | 0 | 10/08/19 | | | xhjsmblvjt-qhxxcjx-r | every 6 hours as | | [...] 09/11/141850 Date of Service: 09/11/141843 Status: Signed Broadloom Weaver: Lesa Rdz RN (Registered Nurse) Discharge instructions reviewed the patient, she is awaiting her mother to arrive from [facility] to drive her home. IJ line removed, dressing is clean, dry and intact. Will pass on to shift mechanic RN that discharge is completed and that pt only needs to be assisted to her [employer] vehicle when her mother arrives.Lesa Rdz RN onver james Transaction, Provider Unknown - 09/11/2014 4:37 PM PDT Progress Notes by Lesa Rdz RN at 09/11/14 1637 Author: Lesa Rdz RN Service: (none) Author Type: Registered Nurse Filed: 09/11/14 6917 Date of Service: 09/11/14 1637 Status: Signed Broadloom Weaver: Lesa Rdz RN (Registered Nurse) Pt cleared for discharge by CRU.Lesa Rdz RN nuradha Botello MS CCC-SENIOR COMMUNICATIONS ENGINEER - 09/11/2014 1:34 PM PDTFormatting of this note might be differen t from the original. Therapy Progress Note by Anuradha Mendez MA CCC-SENIOR COMMUNICATIONS ENGINEER at 09/11/14 4051 Author: Anuradha Mendez MA CCC-SENIOR COMMUNICATIONS ENGINEER Service: (none) Author Type: Speech and Language Pathologist Filed: 09/11/14 9315 Date of Service: 09/11/14 1334 Status: Signed Broadloom Weaver: Anuradha Mendez MA CCC-SENIOR COMMUNICATIONS ENGINEER (Speech and Language Pathologist) 09/11/14 1328 Swallowing [...] 09/11/141328 Date of Service: 09/11/141328 Status: Signed Broadloom Weaver: Nik Duarte RPH (Pharmacist) Vancomycin day 2, est crcl 104.3ml/min, awaiting trough level at 0930 09/12 onver james Transaction, Provider Unknown - 09/11/2014 1:16 PM PDT Case Management by EMA De La Vega at 09/11/14 1316 Author: EMA De La Vega Service: (none) Author Type: Boiler Welder Filed: 09/11/140 Date of Service: 09/11/141315 Status: Signed Broadloom Weaver: EMA De La Vega (Boiler Welder) Per MD. Pride, "Pt is Medically Cleared [...] Date of Service: 09/10/14 100 Status: Signed Broadloom Weaver: Krystle Sparks RPH (Pharmacist) Clinical Pharmacy Note: [...] this note might be different from the [facility]. Progress Notes by Jeffy Rahman DO at 09/10/14854 Author: Jeffy Rahman DO Service: Hospitalist Author Type: Physician Filed: 09/10/14900 Date of Service: 09/10/14854 Status: Signed Broadloom Weaver: Jeffy Rahman DO (Physician) PROGRESS NOTE 09/10/2014 [...] (none) Author Type: Registered Dietitian Filed: 09/09/14 7475 Date of Service: 09/09/14 143 Status: Signed Broadloom Weaver: Juan A Marcano RD (Registered Dietitian) 09/09/14 1432 Subjective Timepoint Follow up Pt c/o None [...] / Meals Diabetic maintenance, dental soft per SENIOR COMMUNICATIONS ENGINEER. Micronutrient Intake Mineral / Element Intake Magnesium [...] Service: Hospitalist Author Type: Physician Filed: 09/09/14 2743 Date of Service: 09/09/14 1206 Status: Signed Broadloom Weaver: Jeffy Rahman DO (Physician) PROGRESS NOTE 09/09/2014 [...] 09/09/14449 Date of Service: 09/09/14447 Status: Signed Broadloom Weaver: Devi Vora RN (Registered Nurse) Pt is [...] 09/08/143 Date of Service: 09/08/141331 Status: Signed Broadloom Weaver: Karina Mayer RN (Registered Nurse) Report given to MARTHA Deleon. Will transfer pt at this time. onver james Transaction, Provider Unknown - 09/08/2014 1:26 PM PDT Nurse Progress Note by Karina Mayer RN at 09/08/14 1326 Author: Karina Mayer RN Service: (none) Author Type: Registered Nurse Filed: 09/08/14 1327 Date of Service: 09/08/146 Status: Signed Broadloom Weaver: Karina Mayer RN (Registered Nurse) Attempted to start peripheral IV. Attempt unsuccessful. onver james Transaction, Provider Unknown - 09/08/2014 1:04 PM PDT Case Management by EMA Verma at 09/08/14 1305 Author: EMA Verma Service: (none) Author Type: Boiler Welder Filed: 09/08/14 1319 Date of Service: 09/08/14 1304 Status: Signed Broadloom Weaver: EMA Verma (Boiler Welder) 09/08/14 1302 Discharge Planning Evaluation Admitting Diagnosis OD Readmission [...] Prescription Plan Yes Name of Pharmacy [facility] [place] Anticipated Disposition Facility Type Home Met with: [...] a contract. Pt has a son in [place] and a sister in [place]. Await CRU to evdc. Patient's PCP is: HERMAN BA Patient's insurance:[place] [facility] Coverage concerns: Medication coverage/concerns: Lisandra's Bedside Delivery: Community resources utilized / needed: Assistance in transportation: Mother can transport Identification of any specific education / training: Barriers to Discharge / Alternative housing needed: Anticipated DCP: CRU to eval. Bella Diehl Laurie Esteban MS CCC-SENIOR COMMUNICATIONS ENGINEER - 09/08/2014 10:45 AM PDTFormatting of this note might be different fr om the original. Therapy Progress Note by Laurie Steen MS CCC-SENIOR COMMUNICATIONS ENGINEER at 09/08/14 1049 Author: Laurie Steen MS CCC-SENIOR COMMUNICATIONS ENGINEER Service: (none) Author Type: Speech Therapist Filed: 09/08/14 2234 Date of Service: 09/08/141044 Status: Signed Broadloom Weaver: Laurie Steen MS CCC-SENIOR COMMUNICATIONS ENGINEER (Speech Therapist) 09/08/14 1042 Swallowing Assessment Eval Swallowing Evaluation Yes Initial [...] Swallow strategies;Diet tolerance monitoring;Patient/Family education Dysphagia Goals Halfway Goals Safe/efficient oral intake Pt will have safe/efficient oral intake Regular diet;New/revised goal;With min cues Short Term Goals Tolerate diet Pt will tolerate diet Dental soft;New/revised goal;With min supervision evin Romie DEEJAY Salazar - 09/08/2014 6:44 AM PDTFormatting of this note might be different from the o riginal. Progress Notes by DEEJAY Astorga at 09/08/1444 Author: DEEJAY Astorga Service: Bench Worker Apprentice Author Type: Nurse Practitioner Filed: 09/08/14 1248 Date of Service: 09/08/14643 Status: Signed Broadloom Weaver: DEEJAY Astorga (Nurse Practitioner) [facility] Service: Bench Worker Apprentice Progress Note [facility] 44 [facility] [...] by family members to the ED in [place] on 09/04. 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 Glucose was [...] acid, but again, level normal. Discussed with radiologic technician at [facility]. Could possibly be d/t methamphetamine intoxication. [...] 09/08/148 Date of Service: 09/08/1422 Status: Signed Broadloom Weaver: Beth Huang RN (Registered Nurse) RN talking with pt during midnight reassessment found pt to have increased RR and anxious.R N talked with pt about slow deep breathing, RN talked with pt and asked if she knew why she was in the hospital, pt stated that she remembers taking "a lot" of hydrocodone for a drug overdose, however doesn't remember how much. ticker maintainer notified. 1mg ativan ordered Q4 for anxiety at this time. Will continue to monitor. Beth Huang RN onver james Transaction, Provider Unknown - 09/07/2014 9:14 PM PDT Nurse Progress Note by Beth Huang RN at 09/07/142113 Author: Beth Huang RN Service: (none) Author Type: Registered Nurse Filed: 09/07/142114 Date of Service: 09/07/142113 Status: Signed Broadloom Weaver: Beth Huang RN (Registered Nurse) Per day [...] Author: EMA Verma Service: (none) Author Type: Boiler Welder Filed: 09/07/141404 Date of Service: 09/07/141403 Status: Signed Broadloom Weaver: EMA Verma (Boiler Welder) Placed t/c to pt's son Robson [phone] . He is on his way into [...] Notes by Tyler Edwards MD at 09/07/14 8079 Author: Tyler Edwards MD Service: Nephrology Author Type: Physician Filed: 09/07/14 1351 Date of Service: 09/07/14 1349 Status: Signed Broadloom Weaver: Tyler Edwards MD (Physician) Noted Normalization of Cr and electrolytes. Bp is controlled and ACID BASE IS improved. Pt was not examined. Will Sign off at this time . Should be there any concerns , please call with questions or reconsult. asper Rollins MD - 09/07/2014 1:38 PM PDT Progress Notes by Casper Rollins MD at 09/07/14 2423 Author: Casper Rollins MD Service: Bench Worker Apprentice Author Type: Bench Worker Apprentice Filed: 09/07/14 5735 Date of Service: 09/07/143 Status: Signed Broadloom Weaver: Casper Rollins MD (Physician) [facility] Service: Bench Worker Apprentice Progress Note Kait Escobar 44 [facility] [...] by family members to the ED in [place] on 09/04. 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 Glucose was [...] acid, but again, level normal. Discussed with radiologic technician at [facility]. Could possibly be d/t methamphetamine intoxication. [...] 1432 Date of Service: 09/06/141420 Status: Signed Broadloom Weaver: Mary Mclean RN (Registered Nurse) Patient seen today by finisher tailor apprentice for evaluation due to low Pablo. Today's [...] 1117 Date of Service: 09/06/141115 Status: Signed Broadloom Weaver: Angela Saenz RD, CD (Registered Dietitian) 09/06/14 [...] Estimated Energy Needs Total Energy Estimated Needs 1996-4448 kcal/day Method for Estimating Needs 22-25 kcal/kg [...] 09/06/14420 Date of Service: 09/06/14419 Status: Signed Broadloom Weaver: Justina Reyes, RN (Registered Nurse) Unable to complete pt admission documentation d/t pt family not present and pt is intubated . Thank you. onver james Transaction, Provider Unknown - 09/06/2014 2:08 AM PDT Progress Notes by Nelson Mayer RPH at 09/06/14207 Author: Nelson Mayer RPH Service: (none) Author Type: Pharmacist Filed: 09/06/14207 Date of Service: 09/06/14207 Status: Signed Broadloom Weaver: Nelson Mayer RPH (Pharmacist) Note ccl 91.7ml/min [...] [place] | | | | | | [address] | | | | | | | [...] | | | Fingerstick | performed at [facility];[address] | | LAB | | | | [address];[place], [place] | | | | | | [address] | | | | + + + [...] | | | Fingerstick | performed at [facility];[address] | | LAB | | | | [address];[place] | | | | | | [address] | | | | + + + [...] | | | Fingerstick | performed at [facility];[address] | | LAB | | | | [address];[place], [place] | | | | | | [address] | | | | + + + [...] EXTERNAL | | | | performed at [facility];[address] | | LAB | | | | [address];[place] | | | | | | [address] | | | | + + + [...] | | | | | | at [facility];[address] | | | | [address];[place] [address] | | | | + + + [...] K/uL | LAB | | | | [facility], [address] [address] | | | | | | [place] | | | | | | [address] | | | | + + + + + + | RED CELL | 3.52 (L)Comment: Testing | 3.70 - 5.10 | EXTERNAL | | | COUNT | performed at [facility], [address] | M/uL | LAB | | | | [address], | | | | | | [place] [address] | | | | + + + + + + | Hgb | 11.4Comment: Testing | 11.3 - 15.5 | EXTERNAL | | | | performed at [facility], [address] | g/dL | LAB | | | | [address], | | | | | | [place] [address] | | | | + + + + + + | Hematocrit, | 34.9Comment: Testing | 34.0 - 46.0 % | EXTERNAL | | | POC | performed at [facility], [address] | | LAB | | | | [address], | | | | | | [place] [address] | | | | + + + + + + | MCV | 99.0Comment: Testing | 80.0 - 100.0 fl | EXTERNAL | | | | performed at [facility], [address] | | LAB | | | | [address], | | | | | | [place] [address] | | | | + + + + + + | MCH | 32.4Comment: Testing | 27.0 - 34.0 pg | EXTERNAL | | | | performed at [facility], [address] | | LAB | | | | [address], | | | | | | [place] [address] | | | | + + + + + + | MCHC | 32.7Comment: Testing | 32.0 - 35.5 | EXTERNAL | | | | performed at [facility], [address] | g/dL | LAB | | | | [address], | | | | | | [place] [address] | | | | + + + + + + | RDW-CV | 55.6 (H)Comment: Testing | 37 - 53 fl | EXTERNAL | | | | performed at [facility], [address] | | LAB | | | | [address], | | | | | | [place] [address] | | | | + + + + + + | Platelet | 250Comment: Testing | 150 - 400 K/uL | EXTERNAL | | | Count | performed at [facility], [address] | | LAB | | | Plasma | [address], | | | | | | [place] [address] | | | | + + + + + + | MPV | 8.8Comment: Testing | fl | EXTERNAL | | | | performed at [facility], [address] | | LAB | | | | [address], | | | | | | [place] [address] | | | | + + + + + + | Differentia | AUTOMATEDComment: | | EXTERNAL | | | l Type | Testing performed at | | LAB | | | | [facility], [address] | | | | | | [place] | | | | | | [address] | | | | + + + + + + | % Segmented | 65.20Comment: Testing | % | EXTERNAL | | | | performed at [facility], [address] | | LAB | | | Neutrophils | [address], | | | | | | [place] [address] | | | | + + + + + + | % | 19.01Comment: Testing | % | EXTERNAL | | | Lymphocytes | performed at [facility], [address] | | LAB | | | | [address], | | | | | | [place] [address] | | | | + + + + + + | % Monocytes | 13.64Comment: Testing | % | EXTERNAL | | | | performed at [facility], [address] | | LAB | | | | [address], | | | | | | [place] [address] | | | | + + + + + + | % | 1.60Comment: Testing | % | EXTERNAL | | | Eosinophils | performed at [facility], [address] | | LAB | | | [address], | | | | | | [place] [address] | | | | + + + + + + | % Basophils | 0.55Comment: Testing | % | EXTERNAL | | | | performed at [facility], [address] | | LAB | | | | [address], | | | | | | [place] [address] | | | | + + + + + + | Absolute | 7.60 (H)Comment: Testing | 1.90 - 7.40 | EXTERNAL | | | Segmented | performed at [facility], [address] | K/uL | LAB | | | Neutrophils | [address], | | | | | | [place] [address] | | | | + + + + + + | Absolute | 2.22Comment: Testing | 1.00 - 3.90 | EXTERNAL | | | Lymphocytes | performed at [facility], [address] | K/uL | LAB | | | | [address], | | | | | | [place] [address] | | | | + + + + + + | Absolute | 1.59 (H)Comment: Testing | 0.00 - 0.80 | EXTERNAL | | | Monocytes | performed at [facility], [address] | K/uL | LAB | | | | [address], | | | | | | [place] [address] | | | | + + + + + + | Absolute | 0.19Comment: Testing | 0.00 - 0.50 | EXTERNAL | | | Eosinophils | performed at [facility], [address] | K/uL | LAB | | | | [address], | | | | | | [place] [address] | | | | + + + + + + | Absolute | 0.07Comment: Testing | 0.00 - 0.10 | EXTERNAL | | | Basophils | performed at [facility], [address] | K/uL | LAB | | | | [address], | | | | | | [place] [address] | | | | + + + [...] EXTERNAL | | | | performed at [facility];[address] | | LAB | | | | [address];[place], [place] | | | | | | [address] | | | | + + + [...] EXTERNAL | | | | performed at [facility];[address] | | LAB | | | | [address];[place] | | | | | | [address] | | | | + + + [...] EXTERNAL | | | | performed at [facility];[address] | mmol/L | LAB | | | | [address];[place] | | | | | | [address] | | | | + + + + + + | K | 3.8Comment: Testing | 3.5 - 4.9 | EXTERNAL | | | | performed at [facility];[address] | mmol/L | LAB | | | | [address];[place] | | | | | | [address] | | | | + + + + + + | Cl | 101Comment: Testing | 99 - 109 mmol/L | EXTERNAL | | | | performed at [facility];[address] | | LAB | | | | [address];[place] | | | | | | [address] | | | | + + + + + + | CO2 | 29Comment: Testing | 23 - 32 mmol/L | EXTERNAL | | | | performed at [facility];[address] | | LAB | | | | [address];[place] | | | | | | [address] | | | | + + + + + + | Anion Gap | 11Comment: Testing | 5 - 20 mmol/L | EXTERNAL | | | | performed at [facility];[address] | | LAB | | | | [address];[place] | | | | | | [address] | | | | + + + + + + | Glucose, | 184 (H)Comment: Testing | 65 - 99 mg/dL | EXTERNAL | | | Fasting | performed at [facility];[address] | | LAB | | | | [address];[place] | | | | | | [address] | | | | + + + + + + | BUN | 10Comment: Testing | 8 - 25 mg/dL | EXTERNAL | | | | performed at [facility];[address] | | LAB | | | | [address];[place] | | | | | | [address] | | | | + + + + + + | Creatinine | 0.82Comment: Testing | 0.50 - 1.00 | EXTERNAL | | | | performed at [facility];[address] | mg/dL | LAB | | | | [address];[place] | | | | | | [address] | | | | + + + + + + | BUN/Creatin | 12Comment: Testing | | EXTERNAL | | | ine Ratio | performed at [facility];[address] | | LAB | | | | [address];[place] | | | | | | [address] | | | | + + + + + + | Calcium | 9.1Comment: Testing | 8.5 - 10.5 | EXTERNAL | | | | performed at [facility];[address] | mg/dL | LAB | | | | [address];[place] | | | | | | [address] | | | | + + + [...] | | | | | | at [facility];[address] [place] [address] | | | | | | [facility];[place] [address] | | | | + + + [...] | | | Fingerstick | performed at [facility];[address] | | LAB | | | | [address] [facility];[place], [place] | | | | | | [address] | | | | + + + [...] | | | Fingerstick | performed at [facility];[address] | | LAB | | | | [address];[place] | | | | | | [address] | | | | + + + [...] | | | | | [place] [address] | | | | + + + + + + | Clarity | CLEARComment: Testing | | EXTERNAL | | | | performed at [facility], [address] | | LAB | | | | [address], | | | | | | [place] [address] | | | | + + + + + + | Specific | 1.007Comment: Testing | 1.002 - 1.030 | EXTERNAL | | | [place] | performed at [facility], [address] | | LAB | | | | [address], | | | | | | [place] [address] | | | | + + + + + + | Leukocyte | SMALL (A)Comment: | | EXTERNAL | | | Esterase, | Testing performed at | | LAB | | | Urine | [facility], [address] | | | | | | [place] | | | | | | [address] | | | | + + + + + + | Nitrite, | NEGATIVEComment: Testing | | EXTERNAL | | | Urine | performed at [facility], [address] | | LAB | | | | [address], | | | | | | [place] [address] | | | | + + + + + + | Urobilinoge | 0.2Comment: Testing | mg/dL | EXTERNAL | | | n, Urine | performed at [facility], [address] | | LAB | | | [address], | | | | | | [place] [address] | | | | + + + + + + | Protein, | NEGATIVEComment: Testing | mg/dL | EXTERNAL | | | Urine | performed at [facility], [address] | | LAB | | | | [address], | | | | | | [place] [address] | | | | + + + + + + | pH, Urine | 7.0Comment: Testing | 5.0 - 8.0 | EXTERNAL | | | | performed at [facility], [address] | | LAB | | | | [address], | | | | | | [place] [address] | | | | + + + + + + | Blood, | MODERATE (A)Comment: | | EXTERNAL | | | Urine | Testing performed at | | LAB | | | | [facility], [address] | | | | | | [place] | | | | | | [address] | | | | + + + + + + | Ketones | NEGATIVEComment: Testing | mg/dL | EXTERNAL | | | | performed at [facility], [address] | | LAB | | | | [address], | | | | | | [place] [address] | | | | + + + + + + | Bilirubin, | NEGATIVEComment: Testing | | EXTERNAL | | | Urine | performed at [facility], [address] | | LAB | | | | [address], | | | | | | [place] [address] | | | | + + + + + + | Glucose, | NEGATIVEComment: Testing | mg/dL | EXTERNAL | | | Urine | performed at [facility], [address] | | LAB | | | | [address], | | | | | | [place] [address] | | | | + + + [...] | | | | | [place] [address] | | | | + + + + + + | RBC, UA | 1-5Comment: Testing | 0 - 5 /hpf | EXTERNAL | | | | performed at [facility], [address] | | LAB | | | | [address], | | | | | | [place] [address] | | | | + + + + + + | Epithelial | 16-25Comment: Testing | /lpf | EXTERNAL | | | Cells | performed at [facility], [address] | | LAB | | | | [address], | | | | | | [place] [address] | | | | + + + + + + | Bacteria, | 1+ (A)Comment: Testing | | EXTERNAL | | | UA | performed at [facility], [address] | | LAB | | | | [address], | | | | | | [place] [address] | | | | + + + + + + | Urinalysis | LESS THAN 10 ML | | EXTERNAL | | | Comments | SPECIMENComment: CULTURE | | LAB | | | | TO FOLLOWTesting | | | | | | performed at [facility], [address] | | | | | | [address], | | | | | | [place] [address] | | | | + + + [...] GROWTH | | | Testing performed at [facility], | | | [address] [place] [address] | | + + + + +---------+ [...] | | | Fingerstick | performed at [facility];[address] | | LAB | | | | [address];[place], [place] | | | | | | [address] | | | | + + + [...] AC | | | Testing performed at [facility];[address] | | [address];[place] [address] CULTURE | | | NO GROWTH | | | Testing performed at [facility], [address] [place] [address], [place], [place] | | | [address] | | + + + + +---------+ [...] AC | | | Testing performed at [facility];[address] | | [address];[place] [address] CULTURE | | | NO GROWTH | | | Testing performed at [facility], [address] [facility], [place], [place] | | | [address] | | + + + + +---------+ [...] | | | | [facility], [address] [facility] | | | | | | [place] | | | | | | [address] | | | | + + + + + + | RED CELL | 3.66 (L)Comment: Testing | 3.70 - 5.10 | EXTERNAL | | | COUNT | performed at [facility], [address] | M/uL | LAB | | | | [address], | | | | | | [place] [address] | | | | + + + + + + | Hgb | 11.8Comment: Testing | 11.3 - 15.5 | EXTERNAL | | | | performed at [facility], [address] | g/dL | LAB | | | | [address], | | | | | | [place] [address] | | | | + + + + + + | Hematocrit, | 36.2Comment: Testing | 34.0 - 46.0 % | EXTERNAL | | | POC | performed at [facility], [address] | | LAB | | | | [address], | | | | | | [place] [address] | | | | + + + + + + | MCV | 98.8Comment: Testing | 80.0 - 100.0 fl | EXTERNAL | | | | performed at [facility], [address] | | LAB | | | | [address], | | | | | | [place] [address] | | | | + + + + + + | MCH | 32.1Comment: Testing | 27.0 - 34.0 pg | EXTERNAL | | | | performed at [facility], [address] | | LAB | | | | [address], | | | | | | [place] [address] | | | | + + + + + + | MCHC | 32.5Comment: Testing | 32.0 - 35.5 | EXTERNAL | | | | performed at [facility], [address] | g/dL | LAB | | | | [address], | | | | | | [place] [address] | | | | + + + + + + | RDW-CV | 53.8 (H)Comment: Testing | 37 - 53 fl | EXTERNAL | | | | performed at [facility], [address] | | LAB | | | | [address], | | | | | | [place] [address] | | | | + + + + + + | Platelet | 267Comment: Testing | 150 - 400 K/uL | EXTERNAL | | | Count | performed at [facility], [address] | | LAB | | | Plasma | [address], | | | | | | [place] [address] | | | | + + + + + + | MPV | 8.2Comment: Testing | fl | EXTERNAL | | | | performed at [facility], [address] | | LAB | | | | [address], | | | | | | [place] [address] | | | | + + + + + + | Differentia | AUTOMATEDComment: | | EXTERNAL | | | l Type | Testing performed at | | LAB | | | | [facility], [address] | | | | | | [place] | | | | | | [address] | | | | + + + + + + | % Segmented | 69.45Comment: Testing | % | EXTERNAL | | | | performed at [facility], [address] | | LAB | | | Neutrophils | [address], | | | | | | [place] [address] | | | | + + + + + + | % | 17.19Comment: Testing | % | EXTERNAL | | | Lymphocytes | performed at [facility], [address] | | LAB | | | | [address], | | | | | | [place] [address] | | | | + + + + + + | % Monocytes | 11.54Comment: Testing | % | EXTERNAL | | | | performed at [facility], [address] | | LAB | | | | [address], | | | | | | [place] [address] | | | | + + + + + + | % | 1.49Comment: Testing | % | EXTERNAL | | | Eosinophils | performed at [facility], [address] | | LAB | | | | [address], | | | | | | [place] [address] | | | | + + + + + + | % Basophils | 0.33Comment: Testing | % | EXTERNAL | | | | performed at [facility], [address] | | LAB | | | | [address], | | | | | | [place] [address] | | | | + + + + + + | Absolute | 8.64 (H)Comment: Testing | 1.90 - 7.40 | EXTERNAL | | | Segmented | performed at [facility], [address] | K/uL | LAB | | | Neutrophils | [address], | | | | | | [place] [address] | | | | + + + + + + | Absolute | 2.14Comment: Testing | 1.00 - 3.90 | EXTERNAL | | | Lymphocytes | performed at [facility], [address] | K/uL | LAB | | | | [address], | | | | | | [place] [address] | | | | + + + + + + | Absolute | 1.44 (H)Comment: Testing | 0.00 - 0.80 | EXTERNAL | | | Monocytes | performed at [facility], [address] | K/uL | LAB | | | | [address], | | | | | | [place] [address] | | | | + + + + + + | Absolute | 0.19Comment: Testing | 0.00 - 0.50 | EXTERNAL | | | Eosinophils | performed at [facility], [address] | K/uL | LAB | | | | [address], | | | | | | [place] [address] | | | | + + + + + + | Absolute | 0.04Comment: Testing | 0.00 - 0.10 | EXTERNAL | | | Basophils | performed at [facility], [address] | K/uL | LAB | | | | [address], | | | | | | [place] [address] | | | | + + + [...] EXTERNAL | | | | performed at [facility], [address] | | LAB | | | | [address], | | | | | | [place] [address] | | | | + + + [...] EXTERNAL | | | | performed at [facility], [address] | | LAB | | | | [address], | | | | | | [place] [address] | | | | + + + [...] | | | | | [place] [address] | | | | + + + + + + | K | 3.8Comment: Testing | 3.5 - 4.9 | EXTERNAL | | | | performed at [facility], [address] | mmol/L | LAB | | | | [address], | | | | | | [place] [address] | | | | + + + + + + | Cl | 99Comment: Testing | 99 - 109 mmol/L | EXTERNAL | | | | performed at [facility], [address] | | LAB | | | | [address], | | | | | | [place] [address] | | | | + + + [...] | | | | | [place] [address] | | | | + + + + + + | Glucose, | 222 (H)Comment: Testing | 65 - 99 mg/dL | EXTERNAL | | | Fasting | performed at [facility], [address] | | LAB | | | | [address], | | | | | | [place] [address] | | | | + + + + + + | BUN | 12Comment: Testing | 8 - 25 mg/dL | EXTERNAL | | | | performed at [facility], [address] | | LAB | | | | [address], | | | | | | [place] [address] | | | | + + + + + + | Creatinine | 0.83Comment: Testing | 0.50 - 1.00 | EXTERNAL | | | | performed at [facility], [address] | mg/dL | LAB | | | | [address], | | | | | | [place] [address] | | | | + + + + + + | BUN/Creatin | 14Comment: Testing | | EXTERNAL | | | ine Ratio | performed at [facility], [address] | | LAB | | | | [address], | | | | | | [place] [address] | | | | + + + + + + | Calcium | 9.0Comment: Testing | 8.5 - 10.5 | EXTERNAL | | | | performed at [facility], [address] | mg/dL | LAB | | | | [address], | | | | | | [place] [address] | | | | + + + [...] | | | | | | at [facility], [address] | | | | | | [address], | | | | | | [place] [address] | | | | + + + [...] | | | Fingerstick | performed at [facility];[address] | | LAB | | | | [address];[place] | | | | | | [address] | | | | + + + [...] | | | Fingerstick | performed at [facility] | | LAB | | | | [address];[place] | | | | | | [address] | | | | + + + [...] | | | Fingerstick | performed at [facility];[address] | | LAB | | | | [address];[place], [place] | | | | | | [address] | | | | + + + [...] | | | Fingerstick | performed at [facility];[address] | | LAB | | | | [address];[place] | | | | | | [address] | | | | + + + [...] | | | Fingerstick | performed at [facility];[address] | | LAB | | | | [address];[place] | | | | | | [address] | | | | + + + [...] EXTERNAL | | | | performed at [facility], [address] | K/uL | LAB | | | | [address], | | | | | | [place] [address] | | | | + + + + + + | RED CELL | 3.65 (L)Comment: Testing | 3.70 - 5.10 | EXTERNAL | | | COUNT | performed at [facility], [address] | M/uL | LAB | | | | [address], | | | | | | [place] [address] | | | | + + + + + + | Hgb | 11.8Comment: Testing | 11.3 - 15.5 | EXTERNAL | | | | performed at [facility], [address] | g/dL | LAB | | | | [address], | | | | | | [place] [address] | | | | + + + + + + | Hematocrit, | 36.1Comment: Testing | 34.0 - 46.0 % | EXTERNAL | | | POC | performed at [facility], [address] | | LAB | | | | [address], | | | | | | [place] [address] | | | | + + + + + + | MCV | 98.7Comment: Testing | 80.0 - 100.0 fl | EXTERNAL | | | | performed at [facility], [address] | | LAB | | | | [address], | | | | | | [place] [address] | | | | + + + + + + | MCH | 32.4Comment: Testing | 27.0 - 34.0 pg | EXTERNAL | | | | performed at [facility], [address] | | LAB | | | | [address], | | | | | | [place] [address] | | | | + + + + + + | MCHC | 32.8Comment: Testing | 32.0 - 35.5 | EXTERNAL | | | | performed at [facility], [address] | g/dL | LAB | | | | [address], | | | | | | [place] [address] | | | | + + + + + + | RDW-CV | 53.8 (H)Comment: Testing | 37 - 53 fl | EXTERNAL | | | | performed at [facility], [address] | | LAB | | | | [address], | | | | | | [place] [address] | | | | + + + + + + | Platelet | 280Comment: Testing | 150 - 400 K/uL | EXTERNAL | | | Count | performed at [facility], [address] | | LAB | | | Plasma | [address], | | | | | | [place] [address] | | | | + + + + + + | MPV | 7.8Comment: Testing | fl | EXTERNAL | | | | performed at [facility], [address] | | LAB | | | | [address], | | | | | | [place] [address] | | | | + + + + + + | Differentia | AUTOMATEDComment: | | EXTERNAL | | | l Type | Testing performed at | | LAB | | | | [facility], [address] | | | | | | [place] | | | | | | [address] | | | | + + + + + + | % Segmented | 62.96Comment: Testing | % | EXTERNAL | | | | performed at [facility], [address] | | LAB | | | Neutrophils | [address], | | | | | | [place] [address] | | | | + + + + + + | % | 22.27Comment: Testing | % | EXTERNAL | | | Lymphocytes | performed at [facility], [address] | | LAB | | | | [address], | | | | | | [place] [address] | | | | + + + + + + | % Monocytes | 11.29Comment: Testing | % | EXTERNAL | | | | performed at [facility], [address] | | LAB | | | | [address], | | | | | | [place] [address] | | | | + + + + + + | % | 3.04Comment: Testing | % | EXTERNAL | | | Eosinophils | performed at [facility], [address] | | LAB | | | | [address], | | | | | | [place] [address] | | | | + + + + + + | % Basophils | 0.44Comment: Testing | % | EXTERNAL | | | | performed at [facility], [address] | | LAB | | | | [address], | | | | | | [place] [address] | | | | + + + + + + | Absolute | 6.07Comment: Testing | 1.90 - 7.40 | EXTERNAL | | | Segmented | performed at [facility], [address] | K/uL | LAB | | | Neutrophils | [address], | | | | | | [place] [address] | | | | + + + + + + | Absolute | 2.15Comment: Testing | 1.00 - 3.90 | EXTERNAL | | | Lymphocytes | performed at [facility], [address] | K/uL | LAB | | | | [address], | | | | | | [place] [address] | | | | + + + + + + | Absolute | 1.09 (H)Comment: Testing | 0.00 - 0.80 | EXTERNAL | | | Monocytes | performed at [facility], [address] | K/uL | LAB | | | | [address], | | | | | | [place] [address] | | | | + + + + + + | Absolute | 0.29Comment: Testing | 0.00 - 0.50 | EXTERNAL | | | Eosinophils | performed at [facility], [address] | K/uL | LAB | | | | [address], | | | | | | [place] [address] | | | | + + + + + + | Absolute | 0.04Comment: Testing | 0.00 - 0.10 | EXTERNAL | | | Basophils | performed at [facility], [address] | K/uL | LAB | | | | [address], | | | | | | [place] [address] | | | | + + + [...] EXTERNAL | | | | performed at [facility], [address] | | LAB | | | | [address], | | | | | | [place] [address] | | | | + + + [...] EXTERNAL | | | | performed at [facility], [address] | | LAB | | | | [address], | | | | | | [place] [address] | | | | + + + [...] | | | | | [place] [address] | | | | + + + + + + | K | 4.3Comment: Testing | 3.5 - 4.9 | EXTERNAL | | | | performed at [facility], [address] | mmol/L | LAB | | | | [address], | | | | | | [place] [address] | | | | + + + + + + | Cl | 99Comment: Testing | 99 - 109 mmol/L | EXTERNAL | | | | performed at [facility], [address] | | LAB | | | | [address], | | | | | | [place] [address] | | | | + + + + + + | CO2 | 28Comment: Testing | 23 - 32 mmol/L | EXTERNAL | | | | performed at [facility], [address] | | LAB | | | | [address], | | | | | | [place] [address] | | | | + + + + + + | Anion Gap | 10Comment: Testing | 5 - 20 mmol/L | EXTERNAL | | | | performed at [facility], [address] | | LAB | | | | [address], | | | | | | [place] [address] | | | | + + + + + + | Glucose, | 174 (H)Comment: Testing | 65 - 99 mg/dL | EXTERNAL | | | Fasting | performed at [facility], [address] | | LAB | | | | [address], | | | | | | [place] [address] | | | | + + + + + + | BUN | 15Comment: Testing | 8 - 25 mg/dL | EXTERNAL | | | | performed at [facility], [address] | | LAB | | | | [address], | | | | | | [place] [address] | | | | + + + + + + | Creatinine | 0.77Comment: Testing | 0.50 - 1.00 | EXTERNAL | | | | performed at [facility], [address] | mg/dL | LAB | | | | [address], | | | | | | [place] [address] | | | | + + + + + + | BUN/Creatin | 19Comment: Testing | | EXTERNAL | | | ine Ratio | performed at [facility], [address] | | LAB | | | | [address], | | | | | | [place] [address] | | | | + + + + + + | Calcium | 8.9Comment: Testing | 8.5 - 10.5 | EXTERNAL | | | | performed at [facility], [address] | mg/dL | LAB | | | | [address], | | | | | | [place] [address] | | | | + + + [...] [address], | | | | | | [place] [address] | | | | + + + [...] | | | Fingerstick | performed at [facility] | | LAB | | | | [address];[place], [place] | | | | | | [address] | | | | + + + [...] | | | Fingerstick | performed at [facility];[address] | | LAB | | | | [address];[place] | | | | | | [address] | | | | + + + [...] EXTERNAL | | | | performed at [facility];[address] | | LAB | | | | [address];[place] | | | | | | [address] | | | | + + + [...] | | | Fingerstick | performed at [facility];[address] | | LAB | | | | [address];[place], [place] | | | | | | [address] | | | | + + + [...] | | | Fingerstick | performed at [facility];[address] | | LAB | | | | [address];[place] | | | | | | [address] | | | | + + + [...] EXTERNAL | | | | performed at [facility], [address] | K/uL | LAB | | | | [address], | | | | | | [place] [address] | | | | + + + + + + | RED CELL | 3.62 (L)Comment: Testing | 3.70 - 5.10 | EXTERNAL | | | COUNT | performed at [facility], [address] | M/uL | LAB | | | | [address], | | | | | | [place] [address] | | | | + + + + + + | Hgb | 11.8Comment: Testing | 11.3 - 15.5 | EXTERNAL | | | | performed at [facility], [address] | g/dL | LAB | | | | [address], | | | | | | [place] [address] | | | | + + + + + + | Hematocrit, | 36.1Comment: Testing | 34.0 - 46.0 % | EXTERNAL | | | POC | performed at [facility], [address] | | LAB | | | | [address], | | | | | | [place] [address] | | | | + + + + + + | MCV | 99.7Comment: Testing | 80.0 - 100.0 fl | EXTERNAL | | | | performed at [facility], [address] | | LAB | | | | [address], | | | | | | [place] [address] | | | | + + + + + + | MCH | 32.5Comment: Testing | 27.0 - 34.0 pg | EXTERNAL | | | | performed at [facility], [address] | | LAB | | | | [address], | | | | | | [place] [address] | | | | + + + + + + | MCHC | 32.6Comment: Testing | 32.0 - 35.5 | EXTERNAL | | | | performed at [facility], [address] | g/dL | LAB | | | | [address], | | | | | | [place] [address] | | | | + + + + + + | RDW-CV | 54.7 (H)Comment: Testing | 37 - 53 fl | EXTERNAL | | | | performed at [facility], [address] | | LAB | | | | [address], | | | | | | [place] [address] | | | | + + + + + + | Platelet | 289Comment: Testing | 150 - 400 K/uL | EXTERNAL | | | Count | performed at [facility], [address] | | LAB | | | Plasma | [address], | | | | | | [place] [address] | | | | + + + + + + | MPV | 7.4Comment: Testing | fl | EXTERNAL | | | | performed at [facility], [address] | | LAB | | | | [address], | | | | | | [place] [address] | | | | + + + + + + | Differentia | AUTOMATEDComment: | | EXTERNAL | | | l Type | Testing performed at | | LAB | | | | [facility], [address] | | | | | | [place] | | | | | | [address] | | | | + + + + + + | % Segmented | 53.91Comment: Testing | % | EXTERNAL | | | | performed at [facility], [address] | | LAB | | | Neutrophils | [address], | | | | | | [place], [place] [address] | | | | + + + + + + | % | 26.30Comment: Testing | % | EXTERNAL | | | Lymphocytes | performed at [facility], [address] | | LAB | | | | [address], | | | | | | [place], [place] [address] | | | | + + + + + + | % Monocytes | 15.80Comment: Testing | % | EXTERNAL | | | | performed at [facility], [address] | | LAB | | | | [address], | | | | | | [place] [address] | | | | + + + + + + | % | 3.35Comment: Testing | % | EXTERNAL | | | Eosinophils | performed at [facility], [address] | | LAB | | | | [address], | | | | | | [place] [address] | | | | + + + + + + | % Basophils | 0.64Comment: Testing | % | EXTERNAL | | | | performed at [facility], [address] | | LAB | | | | [address], | | | | | | [place] [address] | | | | + + + + + + | Absolute | 5.40Comment: Testing | 1.90 - 7.40 | EXTERNAL | | | Segmented | performed at [facility], [address] | K/uL | LAB | | | Neutrophils | [address], | | | | | | [place] [address] | | | | + + + + + + | Absolute | 2.63Comment: Testing | 1.00 - 3.90 | EXTERNAL | | | Lymphocytes | performed at [facility], [address] | K/uL | LAB | | | | [address], | | | | | | [place] [address] | | | | + + + + + + | Absolute | 1.58 (H)Comment: Testing | 0.00 - 0.80 | EXTERNAL | | | Monocytes | performed at [facility], [address] | K/uL | LAB | | | | [address], | | | | | | [place] [address] | | | | + + + + + + | Absolute | 0.34Comment: Testing | 0.00 - 0.50 | EXTERNAL | | | Eosinophils | performed at [facility], [address] | K/uL | LAB | | | | [address], | | | | | | [place] [address] | | | | + + + + + + | Absolute | 0.06Comment: Testing | 0.00 - 0.10 | EXTERNAL | | | Basophils | performed at [facility], [address] | K/uL | LAB | | | | [address], | | | | | | [place] [address] | | | | + + + [...] EXTERNAL | | | | performed at [facility], [address] | | LAB | | | | [address], | | | | | | [place] [address] | | | | + + + [...] EXTERNAL | | | | performed at [facility], [address] | | LAB | | | | [address], | | | | | | [place] [address] | | | | + + + [...] | | | | | [place] [address] | | | | + + + + + + | K | 4.4Comment: Testing | 3.5 - 4.9 | EXTERNAL | | | | performed at [facility], [address] | mmol/L | LAB | | | | [address], | | | | | | [place] [address] | | | | + + + + + + | Cl | 106Comment: Testing | 99 - 109 mmol/L | EXTERNAL | | | | performed at [facility], [address] | | LAB | | | | [address], | | | | | | [place] [address] | | | | + + + + + + | CO2 | 27Comment: Testing | 23 - 32 mmol/L | EXTERNAL | | | | performed at [facility], [address] | | LAB | | | | [address], | | | | | | [place] [address] | | | | + + + + + + | Anion Gap | 10Comment: Testing | 5 - 20 mmol/L | EXTERNAL | | | | performed at [facility], [address] | | LAB | | | | [address], | | | | | | [place] [address] | | | | + + + + + + | Glucose, | 129 (H)Comment: Testing | 65 - 99 mg/dL | EXTERNAL | | | Fasting | performed at [facility], [address] | | LAB | | | | [address], | | | | | | [place] [address] | | | | + + + + + + | BUN | 16Comment: Testing | 8 - 25 mg/dL | EXTERNAL | | | | performed at [facility], [address] | | LAB | | | | [address], | | | | | | [place] [address] | | | | + + + + + + | Creatinine | 0.82Comment: Testing | 0.50 - 1.00 | EXTERNAL | | | | performed at [facility], [address] | mg/dL | LAB | | | | [address], | | | | | | [place] [address] | | | | + + + + + + | BUN/Creatin | 20Comment: Testing | | EXTERNAL | | | ine Ratio | performed at [facility], [address] | | LAB | | | | [address], | | | | | | [place] [address] | | | | + + + + + + | Calcium | 8.9Comment: Testing | 8.5 - 10.5 | EXTERNAL | | | | performed at [facility], [address] | mg/dL | LAB | | | | [address], | | | | | | [place] [address] | | | | + + + [...] | | | | | [place] [address] | | | | + + + [...] | | | Fingerstick | performed at [facility];[address] | | LAB | | | | [address];[place], [place] | | | | | | [address] | | | | + + + [...] | | | Fingerstick | performed at [facility];[address] | | LAB | | | | [address];[place] | | | | | | [address] | | | | + + + [...] | | | Fingerstick | performed at [facility];[address] | | LAB | | | | [address];[place], [place] | | | | | | [address] | | | | + + + [...] | | | Fingerstick | performed at [facility] | | LAB | | | | [address];[place] | | | | | | [address] | | | | + + + [...] EXTERNAL | | | | performed at [facility];[address] | mmol/L | LAB | | | | [address];[place], [place] | | | | | | [address] | | | | + + + [...] EXTERNAL | | | | performed at [facility] | | LAB | | | | [address];[place], [place] | | | | | | [address] | | | | + + + [...] | | | Fingerstick | performed at [facility];[address] | | LAB | | | | [address];[place], [place] | | | | | | [address] | | | | + + + [...] | | | Fingerstick | performed at [facility];[address] | | LAB | | | | [address];[place] | | | | | | [address] | | | | + + + [...] | | | Fingerstick | performed at [facility];[address] | | LAB | | | | [...] | | | Fingerstick | performed at [facility];[address] | | LAB | | | | [address];[place], [place] | | | | | | [address] | | | | + + + [...] EXTERNAL | | | | performed at [facility], [address] | K/uL | LAB | | | | [address], | | | | | | [place] [address] | | | | + + + + + + | RED CELL | 3.42 (L)Comment: Testing | 3.70 - 5.10 | EXTERNAL | | | COUNT | performed at [facility], [address] | M/uL | LAB | | | | [address], | | | | | | [place] [address] | | | | + + + + + + | Hgb | 11.1 (L)Comment: Testing | 11.3 - 15.5 | EXTERNAL | | | | performed at [facility], [address] | g/dL | LAB | | | | [address], | | | | | | [place] [address] | | | | + + + + + + | Hematocrit, | 33.5 (L)Comment: Testing | 34.0 - 46.0 % | EXTERNAL | | | POC | performed at [facility], [address] | | LAB | | | | [address], | | | | | | [place] [address] | | | | + + + + + + | MCV | 97.9Comment: Testing | 80.0 - 100.0 fl | EXTERNAL | | | | performed at [facility], [address] | | LAB | | | | [address], | | | | | | [place] [address] | | | | + + + + + + | MCH | 32.3Comment: Testing | 27.0 - 34.0 pg | EXTERNAL | | | | performed at [facility], [address] | | LAB | | | | [address], | | | | | | [place] [address] | | | | + + + + + + | MCHC | 33.0Comment: Testing | 32.0 - 35.5 | EXTERNAL | | | | performed at [facility], [address] | g/dL | LAB | | | | [address], | | | | | | [place] [address] | | | | + + + + + + | RDW-CV | 55.6 (H)Comment: Testing | 37 - 53 fl | EXTERNAL | | | | performed at [facility], [address] | | LAB | | | | [address], | | | | | | [place] [address] | | | | + + + + + + | Platelet | 321Comment: Testing | 150 - 400 K/uL | EXTERNAL | | | Count | performed at [facility], [address] | | LAB | | | Plasma | [address], | | | | | | [place] [address] | | | | + + + + + + | MPV | 7.4Comment: Testing | fl | EXTERNAL | | | | performed at [facility], [address] | | LAB | | | | [address], | | | | | | [place] [address] | | | | + + + + + + | Differentia | AUTOMATEDComment: | | EXTERNAL | | | l Type | Testing performed at | | LAB | | | | [facility], [address] | | | | | | [place] | | | | | | [address] | | | | + + + + + + | % Segmented | 51.00Comment: Testing | % | EXTERNAL | | | | performed at [facility], [address] | | LAB | | | Neutrophils | [address], | | | | | | [place] [address] | | | | + + + + + + | % | 30.62Comment: Testing | % | EXTERNAL | | | Lymphocytes | performed at [facility], [address] | | LAB | | | | [address], | | | | | | [place] [address] | | | | + + + + + + | % Monocytes | 16.25Comment: Testing | % | EXTERNAL | | | | performed at [facility], [address] | | LAB | | | | [address], | | | | | | [place] [address] | | | | + + + + + + | % | 1.79Comment: Testing | % | EXTERNAL | | | Eosinophils | performed at [facility], [address] | | LAB | | | | [address], | | | | | | [place] [address] | | | | + + + + + + | % Basophils | 0.34Comment: Testing | % | EXTERNAL | | | | performed at [facility], [address] | | LAB | | | | [address], | | | | | | [place] [address] | | | | + + + + + + | Absolute | 4.68Comment: Testing | 1.90 - 7.40 | EXTERNAL | | | Segmented | performed at [facility], [address] | K/uL | LAB | | | Neutrophils | [address], | | | | | | [place] [address] | | | | + + + + + + | Absolute | 2.81Comment: Testing | 1.00 - 3.90 | EXTERNAL | | | Lymphocytes | performed at [facility], [address] | K/uL | LAB | | | | [address], | | | | | | [place], [place] [address] | | | | + + + + + + | Absolute | 1.49 (H)Comment: Testing | 0.00 - 0.80 | EXTERNAL | | | Monocytes | performed at [facility], [address] | [address]/u[address] | LAB | | | | [address], | | | | | | [place] [address] | | | | + + + + + + | Absolute | 0.16Comment: Testing | 0.00 - 0.50 | EXTERNAL | | | Eosinophils | performed at [facility], [address] | K/uL | LAB | | | | [address], | | | | | | [place] [address] | | | | + + + + + + | Absolute | 0.03Comment: Testing | 0.00 - 0.10 | EXTERNAL | | | Basophils | performed at [facility], [address] | K/uL | LAB | | | | [address], | | | | | | [place] [address] | | | | + + + [...] | | | | | [place] [address] | | | | + + + [...] EXTERNAL | | | | performed at [facility], [address] | | LAB | | | | [address], | | | | | | [place] [address] | | | | + + + [...] | | | | | [place] [address] | | | | + + + + + + | K | 3.9Comment: Testing | 3.5 - 4.9 | EXTERNAL | | | | performed at [facility], [address] | mmol/L | LAB | | | | [address], | | | | | | [place] [address] | | | | + + + + + + | Cl | 114 (H)Comment: Testing | 99 - 109 mmol/L | EXTERNAL | | | | performed at [facility], [address] | | LAB | | | | [address], | | | | | | [place] [address] | | | | + + + + + + | CO2 | 22 (L)Comment: Testing | 23 - 32 mmol/L | EXTERNAL | | | | performed at [facility], [address] | | LAB | | | | [address], | | | | | | [place] [address] | | | | + + + [...] | | | | | [place] [address] | | | | + + + + + + | BUN | 16Comment: Testing | 8 - 25 mg/dL | EXTERNAL | | | | performed at [facility], [address] | | LAB | | | | [address], | | | | | | [place] [address] | | | | + + + + + + | Creatinine | 0.89Comment: Testing | 0.50 - 1.00 | EXTERNAL | | | | performed at [facility], [address] | mg/dL | LAB | | | | [address], | | | | | | [place] [address] | | | | + + + + + + | BUN/Creatin | 18Comment: Testing | | EXTERNAL | | | ine Ratio | performed at [facility], [address] | | LAB | | | | [address], | | | | | | [place] [address] | | | | + + + + + + | Calcium | 8.7Comment: Testing | 8.5 - 10.5 | EXTERNAL | | | | performed at [facility], [address] | mg/dL | LAB | | | | [facility], | | | | | | [place] [address] | | | | + + + [...] W | | | | | | [facility], | | | | | | [place] [address] | | | | + + + [...] | | | Fingerstick | performed at [facility];[address] | | LAB | | | | [address];[place] | | | | | | [address] | | | | + + + [...] | | | Fingerstick | performed at [facility];[address] | | LAB | | | | [address];[place], [place] | | | | | | [address] | | | | + + + [...] EXTERNAL | | | | performed at [facility];888 | mmol/L | LAB | | | | [address];[place] | | | | | | [address] | | | | + + + [...] | | | Fingerstick | performed at [facility];888 | | LAB | | | | [address];[place], [place] | | | | | | [address] | | | | + + + [...] | | | Fingerstick | performed at [facility];888 | | LAB | | | | [address];[place] | | | | | | [address] | | | | + + + [...] | | | Fingerstick | performed at [facility];888 | | LAB | | | | [address];[place], [place] | | | | | | [address] | | | | + + + [...] EXTERNAL | | | | performed at [facility];888 | mmol/L | LAB | | | | [address];[place], [place] | | | | | | [address] | | | | + + + [...] | | | Fingerstick | performed at [facility];888 | | LAB | | | | [address];[place] | | | | | | [address] | | | | + + + [...] | | | Fingerstick | performed at [facility];888 | | LAB | | | | [address];[place] | | | | | | [address] | | | | + + + [...] EXTERNAL | | | | performed at [facility];888 | mmol/L | LAB | | | | [address];[place] | | | | | | [address] | | | | + + + [...] | | | Fingerstick | performed at [facility];[address] | | LAB | | | | [address];[place] | | | | | | [address] | | | | + + + [...] | | | Fingerstick | performed at [facility];[address] | | LAB | | | | [address];[place], [place] | | | | | | [address] | | | | + + + [...] [place] | | | | | | [address] | | | | + + + + + + | Clarity | TURBIDComment: Testing | | EXTERNAL | | | | performed at [facility], [address] | | LAB | | | | [address], | | | | | | [place] [address] | | | | + + + + + + | Specific | 1.026Comment: Testing | 1.002 - 1.030 | EXTERNAL | | | [place] | performed at [facility], [address] | | LAB | | | | [address], | | | | | | [place], [place] [address] | | | | + + + + + + | Leukocyte | NEGATIVEComment: Testing | | EXTERNAL | | | Esterase, | performed at [facility], [address] | | LAB | | | [address] | [address], | | | | | | [place] [address] | | | | + + + + + + | Nitrite, | NEGATIVEComment: Testing | | EXTERNAL | | | Urine | performed at [facility], [address] | | LAB | | | | [address], | | | | | | [place] [address] | | | | + + + + + + | Urobilinoge | 0.2Comment: Testing | mg/dL | EXTERNAL | | | n, Urine | performed at [facility], [address] | | LAB | | | | [address], | | | | | | [place] [address] | | | | + + + + + + | Protein, | 100 (A)Comment: Testing | mg/dL | EXTERNAL | | | Urine | performed at [facility], [address] | | LAB | | | | [address], | | | | | | [place] [address] | | | | + + + + + + | pH, Urine | 5.5Comment: Testing | 5.0 - 8.0 | EXTERNAL | | | | performed at [facility], [address] | | LAB | | | | [address], | | | | | | [place] [address] | | | | + + + + + + | Blood, | NEGATIVEComment: Testing | | EXTERNAL | | | Urine | performed at [facility], [address] | | LAB | | | | [address], | | | | | | [place] [address] | | | | + + + + + + | Ketones | TRACE (A)Comment: | mg/dL | EXTERNAL | | | | Testing performed at | | LAB | | | | [facility], [address] | | | | | | [place] | | | | | | [address] | | | | + + + + + + | Bilirubin, | LARGE (A)Comment: | | EXTERNAL | | | Urine | Testing performed at | | LAB | | | | [facility], [address] | | | | | | [place] | | | | | | [address] | | | | + + + + + + | Glucose, | NEGATIVEComment: Testing | mg/dL | EXTERNAL | | | Urine | performed at [facility], [address] | | LAB | | | | [address], | | | | | | [place] [address] | | | | + + + + + + | WBC, UA | 0-2Comment: Testing | 0 - 5 /hpf | EXTERNAL | | | | performed at [facility], [address] | | LAB | | | | [address], | | | | | | [place] [address] | | | | + + + + + + | RBC, UA | 1-5Comment: Testing | 0 - 5 /hpf | EXTERNAL | | | | performed at [facility], [address] | | LAB | | | | [address], | | | | | | [place] [address] | | | | + + + + + + | Epithelial | 0-2Comment: Testing | /lpf | EXTERNAL | | | Cells | performed at [facility], [address] | | LAB | | | | [address], | | | | | | [place] [address] | | | | + + + + + + | Bacteria, | 4+ (A)Comment: Testing | | EXTERNAL | | | UA | performed at [facility], [address] | | LAB | | | | [address], | | | | | | [place] [address] | | | | + + + [...] | | | | | [place] [address] | | | | + + + [...] | | at Ratio | performed at [facility], [address] | | LAB | | | | [address], | | | | | | [place] [address] | | | | + + + [...] | | | Urine | performed at [facility], [address] | | LAB | | | Random | [address], | | | | | | [place] [address] | | | | + + + [...] | | | Urine | performed at [facility], [address] | | LAB | | | | [address], | | | | | | [place] [address] | | | | + + + [...] | | | Urine | performed at [facility], [address] | | LAB | | | | [address], | | | | | | [place] [address] | | | | + + + [...] | | | Urine | performed at [facility], [address] | | LAB | | | | [address], | | | | | | [place] [address] | | | | + + + [...] | | | Fingerstick | performed at [facility];[address] | | LAB | | | | [address];[place], [place] | | | | | | [address] | | | | + + + [...] EXTERNAL | | | | performed at [facility];[address] | | LAB | | | | [address];[place], [place] | | | | | | [address] | | | | + + + [...] EXTERNAL | | | | performed at [facility];888 | mmol/L | LAB | | | | [address];[place] | | | | | | [address] | | | | + + + + + + | K | 3.9Comment: Testing | 3.5 - 4.9 | EXTERNAL | | | | performed at [facility];888 | mmol/L | LAB | | | | [address];[place] | | | | | | [address] | | | | + + + + + + | Cl | 115 (H)Comment: Testing | 99 - 109 mmol/L | EXTERNAL | | | | performed at [facility];[address] | | LAB | | | | [address];[place] | | | | | | [address] | | | | + + + + + + | CO2 | 26Comment: Testing | 23 - 32 mmol/L | EXTERNAL | | | | performed at [facility];[address] | | LAB | | | | [address];[place] | | | | | | [address] | | | | + + + + + + | Anion Gap | 14Comment: Testing | 5 - 20 mmol/L | EXTERNAL | | | | performed at [facility];[address] | | LAB | | | | [address];[place] | | | | | | [address] | | | | + + + + + + | Glucose, | 110 (H)Comment: Testing | 65 - 99 mg/dL | EXTERNAL | | | Fasting | performed at [facility];[address] | | LAB | | | | [address];[place] | | | | | | [address] | | | | + + + + + + | BUN | 19Comment: Testing | 8 - 25 mg/dL | EXTERNAL | | | | performed at [facility];[address] | | LAB | | | | [address];[place] | | | | | | [address] | | | | + + + + + + | Creatinine | 1.23 (H)Comment: Testing | 0.50 - 1.00 | EXTERNAL | | | | performed at [facility];888 | mg/dL | LAB | | | | [address];[place] | | | | | | [address] | | | | + + + + + + | BUN/Creatin | 16Comment: Testing | | EXTERNAL | | | ine Ratio | performed at [facility];[address] | | LAB | | | | [address];[place] | | | | | | [address] | | | | + + + + + + | Calcium | 9.1Comment: Testing | 8.5 - 10.5 | EXTERNAL | | | | performed at [facility];888 | mg/dL | LAB | | | | [address];[place] | | | | | | [address] | | | | + + + [...] | | | | | | at [facility];[address];[place] [address] | | | | + + + [...] | | | Fingerstick | performed at [facility];[address] | | LAB | | | | [address];[place] | | | | | | [address] | | | | + + + [...] | | | Fingerstick | performed at [facility];[address] | | LAB | | | | [address];[place] | | | | | | [address] | | | | + + + [...] | | LAB | | | | [facility];[address];[place] [address] | | | | + + + + + + | PCO2 ART | 31 (L)Comment: Testing | 35 - 45 mmHg | EXTERNAL | | | | performed at [facility];[address] | | LAB | | | | [address];[place] | | | | | | [address] | | | | + + + + + + | PO2 ART | 93Comment: Testing | 80 - 105 mmHg | EXTERNAL | | | | performed at [facility];[address] | | LAB | | | | [address];[place] | | | | | | [address] | | | | + + + + + + | Lactate, | 0.6Comment: Testing | 0.36 - 1.25 | EXTERNAL | | | Arterial | performed at [facility];888 | mmol/L | LAB | | | | [address];[place] | | | | | | [address] | | | | + + + + + + | HCO3 ART | 23Comment: Testing | 22 - 26 mmol/L | EXTERNAL | | | | performed at [facility];[address] | | LAB | | | | [address];[place] | | | | | | [address] | | | | + + + + + + | POC | 24Comment: Testing | 23 - 27 mEq/L | EXTERNAL | | | APPEARANCE | performed at [facility];[address] | | LAB | | | UA | [address];[place] | | | | | | [address] | | | | + + + + + + | Base | 0Comment: Testing | 0 - 3 mEq/L | EXTERNAL | | | Excess, | performed at [facility];[address] | | LAB | | | Arterial | [address];[place] | | | | | | [address] | | | | + + + + + + | O2 SAT ART | 98Comment: Testing | 95 - 98 % | EXTERNAL | | | | performed at [facility];[address] | | LAB | | | | [address];[place] | | | | | | [address] | | | | + + + + + + | FiO2, POC | 25Comment: Testing | % | EXTERNAL | | | | performed at [facility];[address] | | LAB | | | | [address];[place] | | | | | | [address] | | | | + + + + + + | Comment, | Tidal Volume = | | EXTERNAL | | | POC | 20Comment: Peep = 5Resp | | LAB | | | | Rate = 46Testing | | | | | | performed at [facility];[address] | | | | | | [address];[place], [place] | | | | | | [address] | | | | + + + [...] EXTERNAL | | | | performed at [facility];[address] | K/uL | LAB | | | | [address];[place] | | | | | | [address] | | | | + + + + + + | RED CELL | 3.56 (L)Comment: Testing | 3.70 - 5.10 | EXTERNAL | | | COUNT | performed at [facility];888 | M/uL | LAB | | | | [address];[place] | | | | | | [address] | | | | + + + + + + | Hgb | 11.6Comment: Testing | 11.3 - 15.5 | EXTERNAL | | | | performed at [facility];888 | g/dL | LAB | | | | [address];[place] | | | | | | [address] | | | | + + + + + + | Hematocrit, | 33.7 (L)Comment: Testing | 34.0 - 46.0 % | EXTERNAL | | | POC | performed at [facility];[address] | | LAB | | | | [address];[place] | | | | | | [address] | | | | + + + + + + | MCV | 94.6Comment: Testing | 80.0 - 100.0 fl | EXTERNAL | | | | performed at [facility];[address] | | LAB | | | | [address];[place] | | | | | | [address] | | | | + + + + + + | MCH | 32.6Comment: Testing | 27.0 - 34.0 pg | EXTERNAL | | | | performed at [facility];[address] | | LAB | | | | [address];[place] | | | | | | [address] | | | | + + + + + + | MCHC | 34.5Comment: Testing | 32.0 - 35.5 | EXTERNAL | | | | performed at [facility];888 | g/dL | LAB | | | | [address];[place] | | | | | | [address] | | | | + + + + + + | RDW-CV | 53.4 (H)Comment: Testing | 37 - 53 fl | EXTERNAL | | | | performed at [facility];[address] | | LAB | | | | [address];[place] | | | | | | [address] | | | | + + + + + + | Platelet | 344Comment: Testing | 150 - 400 K/uL | EXTERNAL | | | Count | performed at [facility];[address] | | LAB | | | Plasma | [address];[place] | | | | | | [address] | | | | + + + + + + | MPV | 7.3Comment: Testing | fl | EXTERNAL | | | | performed at [facility];[address] | | LAB | | | | [address];[place] | | | | | | [address] | | | | + + + + + + | Differentia | AUTOMATEDComment: | | EXTERNAL | | | l Type | Testing performed at | | LAB | | | | [facility];[address];[place] [address] | | | | + + + + + + | % Segmented | 59.60Comment: Testing | % | EXTERNAL | | | | performed at [facility];[address] | | LAB | | | Neutrophils | [address];[place] | | | | | | [address] | | | | + + + + + + | % | 24.07Comment: Testing | % | EXTERNAL | | | Lymphocytes | performed at [facility];[address] | | LAB | | | | [address];[place] | | | | | | [address] | | | | + + + + + + | % Monocytes | 15.67Comment: Testing | % | EXTERNAL | | | | performed at [facility];[address] | | LAB | | | | [address];[place] | | | | | | [address] | | | | + + + + + + | % | 0.24Comment: Testing | % | EXTERNAL | | | Eosinophils | performed at [facility];[address] | | LAB | | | | [address];[place] | | | | | | [address] | | | | + + + + + + | % Basophils | 0.42Comment: Testing | % | EXTERNAL | | | | performed at [facility];[address] | | LAB | | | | [address];[place] | | | | | | [address] | | | | + + + + + + | Absolute | 5.50Comment: Testing | 1.90 - 7.40 | EXTERNAL | | | Segmented | performed at [facility];888 | K/uL | LAB | | | Neutrophils | [address];[place] | | | | | | [address] | | | | + + + + + + | Absolute | 2.22Comment: Testing | 1.00 - 3.90 | EXTERNAL | | | Lymphocytes | performed at [facility];888 | K/uL | LAB | | | | [address];[place] | | | | | | [address] | | | | + + + + + + | Absolute | 1.45 (H)Comment: Testing | 0.00 - 0.80 | EXTERNAL | | | Monocytes | performed at [facility];888 | K/uL | LAB | | | | [address];[place] | | | | | | [address] | | | | + + + + + + | Absolute | 0.02Comment: Testing | 0.00 - 0.50 | EXTERNAL | | | Eosinophils | performed at [facility];888 | K/uL | LAB | | | | [address];[place] | | | | | | [address] | | | | + + + + + + | Absolute | 0.04Comment: Testing | 0.00 - 0.10 | EXTERNAL | | | Basophils | performed at [facility];888 | K/uL | LAB | | | | [address];[place] | | | | | | [address] | | | | + + + [...] EXTERNAL | | | | performed at [facility];[address] | | LAB | | | | [address];[place], [place] | | | | | | [address] | | | | + + + [...] EXTERNAL | | | | performed at [facility] | | LAB | | | | [address];[place] | | | | | | [address] | | | | + + + [...] EXTERNAL | | | | performed at [facility];888 | mmol/L | LAB | | | | [address];[place] | | | | | | [address] | | | | + + + + + + | K | 3.5Comment: Testing | 3.5 - 4.9 | EXTERNAL | | | | performed at [facility];888 | mmol/L | LAB | | | | [address];[place] | | | | | | [address] | | | | + + + + + + | Cl | 113 (H)Comment: Testing | 99 - 109 mmol/L | EXTERNAL | | | | performed at [facility];[address] | | LAB | | | | [address];[place] | | | | | | [address] | | | | + + + + + + | CO2 | 23Comment: Testing | 23 - 32 mmol/L | EXTERNAL | | | | performed at [facility];[address] | | LAB | | | | [address];[place] | | | | | | [address] | | | | + + + + + + | Anion Gap | 16Comment: Testing | 5 - 20 mmol/L | EXTERNAL | | | | performed at [facility];[address] | | LAB | | | | [address];[place] | | | | | | [address] | | | | + + + + + + | Glucose, | 187 (H)Comment: Testing | 65 - 99 mg/dL | EXTERNAL | | | Fasting | performed at [facility];[address] | | LAB | | | | [address];[place] | | | | | | [address] | | | | + + + + + + | BUN | 19Comment: Testing | 8 - 25 mg/dL | EXTERNAL | | | | performed at [facility];[address] | | LAB | | | | [address];[place] | | | | | | [address] | | | | + + + + + + | Creatinine | 1.00Comment: Testing | 0.50 - 1.00 | EXTERNAL | | | | performed at [facility];888 | mg/dL | LAB | | | | [address];[place] | | | | | | [address] | | | | + + + + + + | BUN/Creatin | 19Comment: Testing | | EXTERNAL | | | ine Ratio | performed at [facility];[address] | | LAB | | | | [address];[place] | | | | | | [address] | | | | + + + + + + | Calcium | 9.1Comment: Testing | 8.5 - 10.5 | EXTERNAL | | | | performed at [facility];888 | mg/dL | LAB | | | | [address];[place] | | | | | | [address] | | | | + + + [...] | | | | | | at [facility];[address] [place] [address] | | | | | | Bl;[place] [address] | | | | + + + [...] JESS | | | Testing performed at [facility], [address], [place] | | | [address] | | + + + + +---------+ [...] + + | [facility] | EXTERNAL LAB | [...] | | | Fingerstick | performed at [facility];[address] | | LAB | | | | [address];[place] | | | | | | [address] | | | | + + + [...] + + | Hemoglobin | 5.1Comment: [employer] [place] | 4.0 - 6.0 % | EXTERNAL [...] performed at [facility], [address] | | | | | [address], | | | | | | [place] [address] | | | | + + + [...] | | | | | [place] [address] | | | | + + + [...] EXTERNAL | | | | performed at [facility];888 | | LAB | | | | [address];[place], [place] | | | | | | [address] | | | | + + + [...] | | LAB | | | | [facility] [address] | | | | | [address];[place] [address] | | | | + + + + + + | PCO2 ART | 21 (L)Comment: Testing | 35 - 45 mmHg | EXTERNAL | | | | performed at [facility];[address] | | LAB | | | | [address];[place] | | | | | | [address] | | | | + + + + + + | PO2 ART | 61 (L)Comment: Testing | 80 - 105 mmHg | EXTERNAL | | | | performed at [facility];[address] | | LAB | | | | [address];[place] | | | | | | [address] | | | | + + + + + + | Lactate, | 0.9Comment: Testing | 0.36 - 1.25 | EXTERNAL | | | Arterial | performed at [facility];888 | mmol/L | LAB | | | | [address];[place] | | | | | | [address] | | | | + + + + + + | HCO3 ART | 22Comment: Testing | 22 - 26 mmol/L | EXTERNAL | | | | performed at [facility];[address] | | LAB | | | | [address];[place] | | | | | | [address] | | | | + + + + + + | POC | 22 (L)Comment: Testing | 23 - 27 mEq/L | EXTERNAL | | | APPEARANCE | performed at [facility];[address] | | LAB | | | UA | [address];[place] | | | | | | [address] | | | | + + + + + + | Base | 0Comment: Testing | 0 - 3 mEq/L | EXTERNAL | | | Excess, | performed at [facility];[address] | | LAB | | | Arterial | [address];[place] | | | | | | [address] | | | | + + + + + + | O2 SAT ART | 95Comment: Testing | 95 - 98 % | EXTERNAL | | | | performed at [facility];[address] | | LAB | | | | [address];[place] | | | | | | [address] | | | | + + + + + + | FiO2, POC | 25Comment: Testing | % | EXTERNAL | | | | performed at [facility];[address] | | LAB | | | | [address];[place] | | | | | | [address] | | | | + + + + + + | Comment, | Tidal Volume = | | EXTERNAL | | | POC | 472Comment: Peep = 5Resp | | LAB | | | | Rate = 32Testing | | | | | | performed at [facility];[address] | | | | | | [address];[place] | | | | | | [address] | | | | + + + [...] EXTERNAL LAB | | Testing performed at [facility];[address] [place] [address];[place] [address] MRSA PCR | | | NEGATIVE Testing performed at | | | [address];[place] [address] | | + + + + +---------+ [...] EXTERNAL | | | | performed at [facility];[address] | mOsm/kg | LAB | | | | [address];[place] | | | | | | [address] | | | | + + + [...] | | LAB | | | | [facility];[address] | [address];[place] [address] | | | | + + + + + + | PCO2 ART | 18 (LL)Comment: Testing | 35 - 45 mmHg | EXTERNAL | | | | performed at [facility];[address] | | LAB | | | | [address];[place] | | | | | | [address] | | | | + + + + + + | PO2 ART | 66 (L)Comment: Testing | 80 - 105 mmHg | EXTERNAL | | | | performed at [facility];[address] | | LAB | | | | [address];[place] | | | | | | [address] | | | | + + + + + + | Lactate, | 0.9Comment: Testing | 0.36 - 1.25 | EXTERNAL | | | Arterial | performed at [facility];[address] | mmol/L | LAB | | | | [address];[place] | | | | | | [address] | | | | + + + + + + | HCO3 ART | 20 (L)Comment: Testing | 22 - 26 mmol/L | EXTERNAL | | | | performed at [facility];[address] | | LAB | | | | [address];[place] | | | | | | [address] | | | | + + + + + + | POC | 21 (L)Comment: Testing | 23 - 27 mEq/L | EXTERNAL | | | APPEARANCE | performed at [facility];[address] | | LAB | | | UA | [address];[place] | | | | | | [address] | | | | + + + + + + | Base | 1Comment: Testing | 0.0 - 2.0 | EXTERNAL | | | deficit | performed at [facility];[address] | mmol/L | LAB | | | | [address];[place] | | | | | | [address] | | | | + + + + + + | O2 SAT ART | 97Comment: Testing | 95 - 98 % | EXTERNAL | | | | performed at [facility];[address] | | LAB | | | | [address];[place] | | | | | | [address] | | | | + + + + + + | FiO2, POC | 21Comment: Testing | % | EXTERNAL | | | | performed at [facility];[address] | | LAB | | | | [address];[place] | | | | | | [address] | | | | + + + [...] | | | Patient | performed at [facility];[address] | | LAB | | | | [address];[place] | | | | | | [address] | | | | + + + [...] | | | | | performed at [facility] | | | | | | [address];[place], [place] | | | | | | [address] | | | | + + + [...] EXTERNAL | | | | performed at [facility];[address] | | LAB | | | | [address];[place], [place] | | | | | | [address] | | | | + + + [...] | | | Serum | performed at [facility];888 | mOsm/kg | LAB | | | | [address];[place] | | | | | | [address] | | | | + + + [...] EXTERNAL | | | | performed at [facility];[address] | | LAB | | | | [address];[place], [place] | | | | | | [address] | | | | + + + [...] EXTERNAL | | | | performed at [facility];[address] | mmol/L | LAB | | | | [address];[place] | | | | | | [address] | | | | + + + + + + | K | 2.8 (L)Comment: Testing | 3.5 - 4.9 | EXTERNAL | | | | performed at [facility];[address] | mmol/L | LAB | | | | [address];[place] | | | | | | [address] | | | | + + + + + + | Cl | 106Comment: Testing | 99 - 109 mmol/L | EXTERNAL | | | | performed at [facility];[address] | | LAB | | | | [address];[place] | | | | | | [address] | | | | + + + + + + | CO2 | 22 (L)Comment: Testing | 23 - 32 mmol/L | EXTERNAL | | | | performed at [facility];[address] | | LAB | | | | [address];[place] | | | | | | [address] | | | | + + + + + + | Anion Gap | 18Comment: Testing | 5 - 20 mmol/L | EXTERNAL | | | | performed at [facility] | | LAB | | | | [address];[place] | | | | | | [address] | | | | + + + + + + | Glucose, | 276 (H)Comment: Testing | 65 - 99 mg/dL | EXTERNAL | | | Fasting | performed at [facility];888 | | LAB | | | | [address];[place] | | | | | | [address] | | | | + + + + + + | BUN | 17Comment: Testing | 8 - 25 mg/dL | EXTERNAL | | | | performed at [facility];[address] | | LAB | | | | [address];[place] | | | | | | [address] | | | | + + + + + + | Creatinine | 0.94Comment: Testing | 0.50 - 1.00 | EXTERNAL | | | | performed at [facility] | mg/dL | LAB | | | | [address];[place] | | | | | | [address] | | | | + + + + + + | BUN/Creatin | 18Comment: Testing | | EXTERNAL | | | ine Ratio | performed at [facility];[address] | | LAB | | | | [address];[place] | | | | | | [address] | | | | + + + + + + | Calcium | 9.2Comment: Testing | 8.5 - 10.5 | EXTERNAL | | | | performed at [facility];888 | mg/dL | LAB | | | | [address];[place] | | | | | | [address] | | | | + + + + + + | Protein, | 6.7Comment: Testing | 6.3 - 8.2 g/dL | EXTERNAL | | | Total | performed at [facility];[address] | | LAB | | | | [address];[place] | | | | | | [address] | | | | + + + + + + | Albumin | 2.8 (L)Comment: Testing | 3.6 - 5.0 g/dL | EXTERNAL | | | | performed at [facility];[address] | | LAB | | | | [address];[place] | | | | | | [address] | | | | + + + + + + | Globulin | 3.8Comment: Testing | 1.3 - 4.9 g/dL | EXTERNAL | | | | performed at [facility];[address] | | LAB | | | | [address];[place] | | | | | | [address] | | | | + + + + + + | A/G Ratio | 0.7 (L)Comment: Testing | 1.0 - 2.4 | EXTERNAL | | | | performed at [facility];[address] | | LAB | | | | [address];[place] | | | | | | [address] | | | | + + + + + + | Bilirubin | 0.5Comment: Testing | 0.1 - 1.5 mg/dL | EXTERNAL | | | Total | performed at [facility];[address] | | LAB | | | | [address];[place] | | | | | | [address] | | | | + + + + + + | ALP, | 81Comment: Testing | 35 - 115 U/L | EXTERNAL | | | External | performed at [facility];[address] | | LAB | | | | [address];[place] | | | | | | [address] | | | | + + + + + + | AST | 36Comment: Testing | 10 - 45 U/L | EXTERNAL | | | | performed at [facility];888 | | LAB | | | | [address];[place] | | | | | | [address] | | | | + + + + + + | ALT | 63Comment: Testing | 10 - 65 U/L | EXTERNAL | | | | performed at [facility];[address] | | LAB | | | | [address];[place] | | | | | | [address] | | | | + + + [...] | | | | | | at [facility];[address] | | | | | | [address];[place] [address] | | | | + + + [...] (500), | | | | | | editor & co founder Virginie Robbins | | | | | | (25) on 09/06/2014 | | | | | | 12:58:10 AM | | | | + + + + + + + + | Specimen | + + | | + + + + + | Narrative | Performed At | + + + | Historically converted procedure from [facility] Epic environment | EXTERNAL LAB | [...] | | LAB | | | | [facility];[address] | | | | | | [address];[place] [address] | | | | + + + + + + | PCO2 ART | 12 (LL)Comment: Testing | 35 - 45 mmHg | EXTERNAL | | | | performed at [facility];[address] | | LAB | | | | [address];[place] | | | | | | [address] | | | | + + + + + + | PO2 ART | 86Comment: Testing | 80 - 105 mmHg | EXTERNAL | | | | performed at [facility];[address] | | LAB | | | | [address];[place] | | | | | | [address] | | | | + + + + + + | Lactate, | 1.4 (H)Comment: Testing | 0.36 - 1.25 | EXTERNAL | | | Arterial | performed at [facility];888 | mmol/L | LAB | | | | [address];[place] | | | | | | [address] | | | | + + + + + + | HCO3 ART | 11 (L)Comment: Testing | 22 - 26 mmol/L | EXTERNAL | | | | performed at [facility];[address] | | LAB | | | | [address];[place] | | | | | | [address] | | | | + + + + + + | POC | 11 (L)Comment: Testing | 23 - 27 mEq/L | EXTERNAL | | | APPEARANCE | performed at [facility];[address] | | LAB | | | UA | [address];[place] | | | | | | [address] | | | | + + + + + + | Base | 11 (H)Comment: Testing | 0.0 - 2.0 | EXTERNAL | | | deficit | performed at [facility];888 | mmol/L | LAB | | | | [address];[place] | | | | | | [address] | | | | + + + + + + | O2 SAT ART | 98Comment: Testing | 95 - 98 % | EXTERNAL | | | | performed at [facility];[address] | | LAB | | | | [address];[place] | | | | | | [address] | | | | + + + [...] | | LAB | | | | [facility];[address] [place] [address] | | | | | | Blvd;[place] [address] | | | | + + + [...] K/uL | LAB | | | | [facility];[address] | | | | | | [address];[place] [address] | | | | + + + + + -+ | RED CELL | 4.46Comment: Testing | 3.70 - 5.10 | EXTERNAL | | | COUNT | performed at [facility];888 | M/uL | LAB | | | | [address];[place] | | | | | | [address] | | | | + + + + + -+ | Hgb | 14.8Comment: Testing | 11.3 - 15.5 | EXTERNAL | | | | performed at [facility];888 | g/dL | LAB | | | | [address];[place] | | | | | | [address] | | | | + + + + + -+ | Hematocrit, | 42.9Comment: Testing | 34.0 - 46.0 % | EXTERNAL | | | POC | performed at [facility];[address] | | LAB | | | | [address];[place] | | | | | | [address] | | | | + + + + + -+ | MCV | 96.3Comment: Testing | 80.0 - 100.0 fl | EXTERNAL | | | | performed at [facility];[address] | | LAB | | | | [address];[place] | | | | | | [address] | | | | + + + + + -+ | MCH | 33.2Comment: Testing | 27.0 - 34.0 pg | EXTERNAL | | | | performed at [facility];[address] | | LAB | | | | [address];[place] | | | | | | [address] | | | | + + + + + -+ | MCHC | 34.5Comment: Testing | 32.0 - 35.5 | EXTERNAL | | | | performed at [facility] | g/dL | LAB | | | | [address];[place] | | | | | | [address] | | | | + + + + + -+ | RDW-CV | 53.4 (H)Comment: Testing | 37 - 53 fl | EXTERNAL | | | | performed at [facility];[address] | | LAB | | | | [address];[place] | | | | | | [address] | | | | + + + + + -+ | Platelet | 393Comment: Testing | 150 - 400 K/uL | EXTERNAL | | | Count | performed at [facility];[address] | | LAB | | | Plasma | [address];[place] | | | | | | [address] | | | | + + + + + -+ | MPV | 7.6Comment: Testing | fl | EXTERNAL | | | | performed at [facility];[address] | | LAB | | | | [address];[place] | | | | | | [address] | | | | + + + + + -+ | Differentia | AUTOMATEDComment: | | EXTERNAL | | | l Type | Testing performed at | | LAB | | | | [facility];[address] | | | | | [address];[place] [address] | | | | + + + + + -+ | % Segmented | 78.26Comment: Testing | % | EXTERNAL | | | | performed at [facility];[address] | | LAB | | | Neutrophils | [address];[place] | | | | | | [address] | | | | + + + + + -+ | % | 8.69Comment: Testing | % | EXTERNAL | | | Lymphocytes | performed at [facility];[address] | | LAB | | | | [address];[place] | | | | | | [address] | | | | + + + + + -+ | % Monocytes | 12.49Comment: Testing | % | EXTERNAL | | | | performed at [facility];[address] | | LAB | | | | [address];[place] | | | | | | [address] | | | | + + + + + -+ | % | 0.12Comment: Testing | % | EXTERNAL | | | Eosinophils | performed at [facility];[address] | | LAB | | | | [address];[place] | | | | | | [address] | | | | + + + + + -+ | % Basophils | 0.44Comment: Testing | % | EXTERNAL | | | | performed at [facility];[address] | | LAB | | | | [address];[place] | | | | | | [address] | | | | + + + + + -+ | Absolute | 8.71 (H)Comment: Testing | 1.90 - 7.40 | EXTERNAL | | | Segmented | performed at [facility];888 | K/uL | LAB | | | Neutrophils | [address];[place] | | | | | | [address] | | | | + + + + + -+ | Absolute | 0.97 (L)Comment: Testing | 1.00 - 3.90 | EXTERNAL | | | Lymphocytes | performed at [facility];[address] | K/uL | LAB | | | | [address];[place] | | | | | | [address] | | | | + + + + + -+ | Absolute | 1.39 (H)Comment: Testing | 0.00 - 0.80 | EXTERNAL | | | Monocytes | performed at [facility];[address] | K/uL | LAB | | | | [address];[place] | | | | | | [address] | | | | + + + + + -+ | Absolute | 0.01Comment: Testing | 0.00 - 0.50 | EXTERNAL | | | Eosinophils | performed at [facility];888 | K/uL | LAB | | | | [address];[place] | | | | | | [address] | | | | + + + + + -+ | Absolute | 0.05Comment: Testing | 0.00 - 0.10 | EXTERNAL | | | Basophils | performed at [facility];888 | K/uL | LAB | | | | [address];[place] | | | | | | [address] | | | | + + + + + -+ | Na | 139Comment: Testing | 135 - 143 | EXTERNAL | | | | performed at [facility];888 | mmol/L | LAB | | | | [address];[place] | | | | | | [address] | | | | + + + + + -+ | K | 3.6Comment: Testing | 3.5 - 4.9 | EXTERNAL | | | | performed at [facility];888 | mmol/L | LAB | | | | [address];[place] | | | | | | [address] | | | | + + + + + -+ | Cl | 104Comment: Testing | 99 - 109 mmol/L | EXTERNAL | | | | performed at [facility];[address] | | LAB | | | | [address];[place] | | | | | | [address] | | | | + + + + + -+ | CO2 | 12 (LL)Comment: CALLED | 23 - 32 mmol/L | EXTERNAL | | | | RESULTSREAD BACK RESULTS | | LAB | | | | ABIGAIL/DAMIAN AGUIRRE | | | | | | AT 1824 BY SALTesting | | | | | | performed at [facility];[address] | | | | | | [address];[place] | | | | | | [address] | | | | + + + + + -+ | Anion Gap | 26 (H)Comment: Testing | 5 - 20 mmol/L | EXTERNAL | | | | performed at [facility];[address] | | LAB | | | | [address];[place] | | | | | | [address] | | | | + + + + + -+ | Glucose, | 229 (H)Comment: Testing | 65 - 99 mg/dL | EXTERNAL | | | Fasting | performed at [facility];[address] | | LAB | | | | [address];[place] | | | | | | [address] | | | | + + + + + -+ | BUN | 22Comment: Testing | 8 - 25 mg/dL | EXTERNAL | | | | performed at [facility];[address] | | LAB | | | | [address];[place] | | | | | | [address] | | | | + + + + + -+ | Creatinine | 1.07 (H)Comment: Testing | 0.50 - 1.00 | EXTERNAL | | | | performed at [facility] | mg/dL | LAB | | | | [address];[place] | | | | | | [address] | | | | + + + + + -+ | BUN/Creatin | 21Comment: Testing | | EXTERNAL | | | ine Ratio | performed at [facility];[address] | | LAB | | | | [address];[place] | | | | | | [address] | | | | + + + + + -+ | Calcium | 10.8 (H)Comment: Testing | 8.5 - 10.5 | EXTERNAL | | | | performed at [facility] | mg/dL | LAB | | | | [address];[place] | | | | | | [address] | | | | + + + + + -+ | Protein, | 8.5 (H)Comment: Testing | 6.3 - 8.2 g/dL | EXTERNAL | | | Total | performed at [facility];[address] | | LAB | | | | [address];[place] | | | | | | [address] | | | | + + + + + -+ | Albumin | 3.5 (L)Comment: Testing | 3.6 - 5.0 g/dL | EXTERNAL | | | | performed at [facility];[address] | | LAB | | | | [address];[place] | | | | | | [address] | | | | + + + + + -+ | Globulin | 5.0 (H)Comment: Testing | 1.3 - 4.9 g/dL | EXTERNAL | | | | performed at [facility];[address] | | LAB | | | | [address];[place] | | | | | | [address] | | | | + + + + + -+ | A/G Ratio | 0.7 (L)Comment: Testing | 1.0 - 2.4 | EXTERNAL | | | | performed at [facility];[address] | | LAB | | | | [address];[place] | | | | | | [address] | | | | + + + + + -+ | Bilirubin | 0.5Comment: Testing | 0.1 - 1.5 mg/dL | EXTERNAL | | | Total | performed at [facility];[address] | | LAB | | | | [address];[place] | | | | | | [address] | | | | + + + + + -+ | ALP, | 99Comment: Testing | 35 - 115 U/L | EXTERNAL | | | External | performed at [facility];[address] | | LAB | | | | [address];[place] | | | | | | [address] | | | | + + + + + -+ | AST | 55 (H)Comment: Testing | 10 - 45 U/L | EXTERNAL | | | | performed at [facility];[address] | | LAB | | | | [address];[place] | | | | | | [address] | | | | + + + + + -+ | ALT | 81 (H)Comment: Testing | 10 - 65 U/L | EXTERNAL | | | | performed at [facility];[address] | | LAB | | | | [address];[place] | | | | | | [address] | | | | + + + [...] | | | | | | at [facility];[address] | | | | | [address];[place] [address] | | | | + + + + + -+ | CK, Total | 259 (H)Comment: Testing | 30 - 240 U/L | EXTERNAL | | | | performed at [facility];[address] | | LAB | | | | [address];[place] | | | | | | [address] | | | | + + + [...] | | | | | performed at [facility];[address] | | | | | | [address];[place] | | | | | | [address] | | | | + + + + + -+ | aPTT, | 33 (H)Comment: Testing | 23 - 32 seconds | EXTERNAL | | | Patient | performed at [facility];[address] | | LAB | | | | [address];[place] | | | | | | [address] | | | | + + + + + -+ | CK-MB | 11.4 (H)Comment: Testing | 0.5 - 3.6 ng/mL | EXTERNAL | | | | performed at [facility];[address] | | LAB | | | | [address];[place] | | | | | | [address] | | | | + + + [...] EXTERNAL | | | | performed at [facility] | | LAB | | | | [address];[place], [place] | | | | | | [address] | | | | + + + [...] EXTERNAL | | | | performed at [facility];[address] | | LAB | | | | [address];[place] | | | | | | [address] | | | | + + + [...] EXTERNAL | | | | performed at [facility] | mmol/L | LAB | | | | [address];[place], [place] | | | | | | [address] | | | | + + + [...] | | | Lvl | performed at [facility];888 | mg/dL | LAB | | | | [address];[place], [place] | | | | | | [address] | | | | + + + [...]
--- OUTSIDE RECORDS SUMMARY | ~2019-05-03 | XMS | Encounter Summary ---
Demographics + + + | Address | [address] | | | [place] [address] | + + + | Home Phone [...] | | | | | [place] [address] | | + + + + + | Robson Min | ECON | Unknown | | + + + + + | Isabella Whitehead | ECON | Unknown | | + + + + + Care Team Providers + +------+ + | Care Engraver Rubber Name | Role | Phone | [...] 2019 | Visit | HOSPITAL NEUROLOGY | hTeo, [employer] [address] | with aura without | | | | CLINIC [address] | [address] [facility], | status migrainosus | | | | [address] [place], | [place] [address] | (Primary Dx); | | | | [place] [address] | [phone] | Confusion and | | | | [phone] | | disorientation; | | | | | | Diabetic | | | | | | polyneuropathy | | | | | | associated with type | | | | | | 2 diabetes mellitus | | | | | | ([facility]) | +--------+---------+ + + + [...] this encounter Patient Instructions Patient Instructions Theo oPtter FNP - 09/16/2018 9:45 AM PDTFormatting of [...] before each headache. Show this to your [facility] provider to help find the cause of [...] Difficulty talking or seeing Date Last Reviewed: 11/18/201519996448-0688 [employer]. [address] [place] [address]. All righ ts reserved. This information is [...] early if it happens. Date Last Reviewed: 08/17/201719997182-2502 [employer]. [address] [place], [place] [id number]. All righ ts reserved. This information is [...] Nonsteroidal anti-inflammatory drugs (such as ibuprofen, available qzac-bxw-ubairhg) ? Beta-blockers ? Anticonvulsants ? Tricyclic antidepressants [...] of caffeine you consume. Date Last Reviewed: 08/17/201719992098-1714 [employer]. [address] [place] [address]. All righ ts reserved. This information is not intended as a substitute for professional medical care. Always follow your healthcare professional's instructions. documented in this encounter Progress Notes Theo Potter FNP - 09/16/2018 9:45 AM PDT Patient: Kait Min Medical Record: [id number] Date of Services: 09/16/2018 Referring Doctor: TIMOTHY [...] are intact. There is no dysmetria on rizxxk-at-okud and npea-ibgn-bdbk. There are no abnormal or extraneous movements. [...] least 30 minutes three times a w [place] will help reduce frequency or severity of [...] prescribed by her PCP. We also discussed rczm-cgh-wwsqfww medications which could help with her symptoms [...] [place] | | | | | | [id number] | | | | | | | | +--------+---------+ + + + | 07/26/ | Office | Pulmonology | Navdeep Grande, | | | 2019 | Visit | | [address] | | | | | | [place] | | | | | | [address] | | | | | | | [...] | | Sincerely, Jimbo Samayoa M.D. Neurologist [phone] | | | Electronically signed | | [...]
--- OUTSIDE RECORDS SUMMARY | ~2019-05-03 | XMS | Encounter Summary ---
Demographics + + + | Address | [address] | | | [place] [address] | + + + | Home Phone [...] | | | | | [place] [address] | | + + + + + Care Team Providers + +------+ + | Care Air Cargo Ground Crew Supervisor Name | Role | Phone | [...] | Transcriptions | + + | Interface, Supervisor [employer] In - 11/19/2005 2:03 AM PDT | | [id number] | | [id number] [place]OW[place] [phone] | | | | Date: 10/27/2005 | | | | Attending Surgeon: Anibal Starr M.D. | | | | Fuel House Attendant(s): Valerie Stone | | Ayo Calabrese MD [...] ribs | | were reapproximated with interrupted xtobac-nj-yssdd #2 Vicryls. The | | serratus and [...] | | PS / HS | | [id number] / [id number] / [id number] / [id number] | | | | | | | | | | | | Electronically signed by Anibal Starr 11-18-2005 08:31:32 AM | + + documented in this encounter Visit Diagnoses Not on filedocumented in this encounter"
--- OUTSIDE RECORDS SUMMARY | ~2019-05-03 | XMS | Encounter Summary ---
Demographics + + + | Address | [address] | | | [place] [address] | + + + | Home Phone | | + + + | Preferred Language | Unknown | + + + | Marital Status | Single | + + + | Sabianist Affiliation | Unknown | + + + [...] | | | | | [place] [address] | | + + + + + | Robson Min | ECON | Unknown | | + + + + + | Isabella Whitehead | ECON | Unknown | | + + + + + Care Team Providers + +------+ + | Care Sales Agent Insurance Name | Role | Phone | + [...] | | | Pulmonology | obstructive | [address] | | | | | pulmonary | [place] [address] | [place], | | | | | disease, | [place], | [place] [address] | | | | | unspecified | [place] | Phone: | | | | | ([facility]) | [address] | [phone] | | | | | Obstructive | Phone: | Fax: | | | | | sleep apnea | [phone] | [phone] | | | | | (adult) | Fax: | | | | | | (pediatric) | [phone] | | | | | | Procedures [...] + + | 01/25/ | [facility] | [facility] [place] | Navdeep Grande, | COPD, moderate (HCC) | | 2019 | Visit | PULMONARY [address] | (Primary Dx); | | | | [place], | [place], [place] | Tobacco use | | | | [place] [address] | [address] | disorder; Alveolar | | | | [phone] | | hypoventilation; | | | | [...] Wash your hands often. Use alcohol-based hand merchandise coordinator when you don t have access to soap and water. Don t touch your eyes, nose, and mouth. This may help you keep germs out of your body. Try to avoid people with respiratory infections. You may want to stay out of crowds [facility] ng flu season (winter). Ask your [...] and open the door. Date Last Reviewed: 03/19/201619995314-6341 The [employer]. [address] [place] [address], [place] [address]. All righ ts reserved. This information is not intended as a substitute for professional medical care. Always follow your healthcare professional's instructions. documented in this encounter Progress Notes aNvdeep Grande MD - 01/25/2019 11:00 AM PDTFormatting [...] Angina pectoris (HCC) Arrhythmia Bipolar 1 disorder ([facility]) CHRONIC TENSION HEADACHE Classical migraine without mention of intractable migraine Diabetes mellitus, type 2 ([facility]) Empyema lung ([facility]) 2005 right GI bleeding Hypercholesterolemia Hypertension Hypothyroidism IBS (irritable bowel syndrome) Knee pain Lymphedema Myocardial infarction ([facility]) Nausea and vomiting Nocturia Obesity Panic anxiety syndrome Pneumonia Pyoderma gangreosum-LE RA (rheumatoid arthritis) ([facility]) Followed by Dr. Becerra Rheumologist in [place] Reflux esophagitis Restless leg syndrome Urinary [...] Gluc Sensor (FREESTYLE HUAN 14 DAY SENSOR) [facility], , Disp: , Rfl: DOK 100 MG capsule, Take 100 mg by mouth 2 times daily., Disp: , Rfl: ergocalciferol (VITAMIN D-2) 50,000 units capsule, Take 50,000 Units by mouth Once a w rosebud., Disp: , Rfl: fluticasone-salmeterol (ADVAIR HFA) 115-21 [...] Disp: , Rfl: Respiratory Therapy Supplies [facility] Portable oxygen concentrator to provide O2 at [...] QUADR W/PRES (PED/ADOL/ADULT) MULTIDOSE 01/27/2017, 02/10/2018 INFLUENZA, M3P0-34, UNSPECIFIED 03/09/2009 INFLUENZA, UNSPECIFIED FORMULATION 04/27/2000, 02/04/2011, [...] [place] | | | | | | [id number] | | | | | | | | +--------+---------+ + + + | 07/26/ | Office | Pulmonology | [facility] [place], | | | 2020 | Visit | | [address] | | | | | | [place] | | | | | | [id number] | | | | | | | [...]
--- OUTSIDE RECORDS SUMMARY | ~2019-05-03 | XMS | Encounter Summary ---
Demographics + + + | Address | [address] | | | [place] [address] | + + + | Home Phone [...] | | | | | [place] [address] | | + + + + + Care Team Providers + +------+ + | Care Tire Wrapper Name | Role | Phone | + [...] as of this encounter Progress Notes Interface, Grinding Wheel Facer In - 01/09/2006 1:08 AM [facility] [place] [facility] [address] [place], [place] [address] or April 04, 2001 Tracy Koo M.D. [address] [address] RE: CARLINE MIN MR #: [id number] Dear [...] her to travel all the way from [place] to [place] for these appointments, but unfortunately, I have [...] has a child and lives outside of [place], [place]. She does not smoke, drink, or [...] 2 through 5 bilaterally. She has preserved chef saucier strength, but lacks full chef saucier range of motion of 4th and 5th [...] it occurred in a local area of [place], and the patient cannot recall much information [...] referring your patient to Rheumatology Clinic at [facility]. Please contact me after you receive this letter with your thoughts on Remicade in this patient. You can page me through the [facility] chip mixing machine operator at [phone] and ask them to page Dr. Dorene Waite, or you can leave a message and a time for me to contact you at [phone]. Our fax number at the clinic is [phone]. Sincerely Dorene Waite M.D. Rheumatology Fellow Deyvi Lainez M.D. [place] / [id number] / [id number] / [id number] / [id number] signed by Interface, Grinding Wheel Facer In at 01/09/2006 1:08 AM PDTdoc umented in this encounter Plan of Treatment Not on filedocumented as of this encounter Visit Diagnoses Not on filedocumented in this encounter"
--- OUTSIDE RECORDS SUMMARY | ~2019-05-03 | XMS | Encounter Summary ---
Demographics + + + | Address | [address] | | | [place] [address] | + + + | Home Phone [...] | | | | | [place] [address] | | + + + + + | Robson Min | ECON | Unknown | | + + + + + | Isabella Whitehead | ECON | Unknown | | + + + + + Care Team Providers + +------+ + | Care Packerhead Machine Operator Name | Role | Phone [...] Barba | hypoventilation; | | | | [place], | | Hypoxemia | | | | [place] [address] | | | | | | [phone] | | | +--------+ + + + [...] MICHELLE | | | | | | [address] | | | | | | | | +--------+---------+ + + + | 07/26/ | Office | Pulmonology | Navdeep Grande, | | | 2019 | Visit | | [address] | | | | | | [place] | | | | | | [address] | | | | | | | | +--------+---------+ + + + documented as of this encounter Visit Diagnoses + + | Diagnosis | + + | Alveolar hypoventilation Other dyspnea and respiratory abnormality | + + | Hypoxemia | + + documented in this encounter"
--- OUTSIDE RECORDS SUMMARY | ~2019-05-03 | XMS | Encounter Summary ---
Demographics + + + | Address | [address] | | | [place] [address] | + + + | Home Phone [...] | | | | | [place] [address] | | + + + + + Care Team Providers + +------+ + | Care Back Tender Cloth Printing Name | Role | Phone | + +------+ + PCP | Unavailable | + +------+ + Encounter Details +--------+ + + + + | Date | Type | Department | Care Team | Description | +--------+ + + + + | 10/24/ | Respiratory | | Other, Faculty | | | 2006 | Therapy | | [phone] | | +--------+ + + + + [...] | | | | | Y | METAL CUT OFF SAW TENDER | | | | + + + [...] [facility] | [address] | [place], [place] | | | DIAGNOSTICS - | [address] | [address] | | | PULMONARY FUNCTION | | | | + + + + + documented in this encounter Visit Diagnoses Not on filedocumented in this encounter"
--- OUTSIDE RECORDS SUMMARY | ~2019-05-03 | XMS | Encounter Summary ---
Demographics + + + | Address | [address] | | | [place] [address] | + + + | Home Phone [...] | | | | | [place] [address] | | + + + + + | Robson Min | ECON | Unknown | | + + + + + | Isabella Whitehead | ECON | Unknown | | + + + + + Care Team Providers + +------+ + | Care Cafeteria Helper Name | Role | Phone | [...] [address] | | | | | [place], | [place] | | | | | [place] [address] | [address] | | | | | [phone] | | | +--------+--------+ + + + [...] MICHELLE | | | | | | [address] | | | | | | | | +--------+---------+ + + + | 07/26/ | Office | Pulmonology | Navdeep Grande, | | | 2019 | Visit | | MD Cely GORE | | | | | | [place] | | | | | | [address] | | | | | | | | +--------+---------+ + + + documented as of this encounter Visit Diagnoses Not on filedocumented in this encounter"
--- OUTSIDE RECORDS SUMMARY | ~2019-05-03 | XMS | Clinical Summary ---
Demographics + + + | Address | [address] | | | [place] [address] | + + + | Home Phone | | + + + | Preferred Language | Unknown | + + + | Marital Status | Single | + + + | Hindu Affiliation | Unknown | + + + | Race | Unknown | + + + | Ethnic Group | Unknown | + + + Author + + + | Author | [employer] (Historical as of | | | 12-03-18) | + + + | Organization | [facility] [employer] (Historical as of | | | 12-03-18) [...] Team Providers + +------+ + | Care Actuary Manager Name | Role | Phone | [...] | | | | Activ | | [id number] | mouth every 4 (four) | | [...] +------+-------+ + | MEDICAID | JOSEER | [id number] | | | [address] | | | N | | | | [place] | | | [place] | | | | [address] | | | HOT SAW HELPER | | | | | + +--------+ [...] | kristy | | | [address] | [address] | + +--------+ +--------+ + +
--- OUTSIDE RECORDS SUMMARY | ~2019-05-03 | XMS | Encounter Summary ---
Demographics + + + | Address | [address] | | | [place] [address] | + + + | Home Phone [...] | | | | | [place] [address] | | + + + + + | Robson Min | ECON | Unknown | | + + + + + | Isabella Whitehead | ECON | Unknown | | + + + + + Care Team Providers + +------+ + | Care Quiller Machine Fixer Name | Role | Phone | + [...] | | | | | [place] | [address] | [address] | | | | | is without | [address] | [place], | | | | | acute | [place] | [place] [address] | | | | | exacerbation | [address] | Phone: | | | | | ([facility]) | [place] | [phone] | | | | | Procedures | [address] | Fax: | | | | | ID OFFICE | Phone: | [phone] | | | | | OUTPATIENT | [phone] | | | | | | NEW 45 | | | | | | | MINUTES | | | +--------+--------+ + + + + Encounter Details +--------+---------+ + + + | Date | Type | Department | Care Team | Description | +--------+---------+ + + + | 10/18/ | Office | [facility] | Navdeep Grande, | Abnormal chest x-ray | | 2012 | Visit | PULMONARY [address] | MD [address] | (Primary Dx); | | | | [place], | [place], [place] | Chronic bronchitis | | | | [place] [address] | [id number] | ([facility]) | | | | [phone] | | | +--------+---------+ + + + [...] 4 times daily., Disp: , Rfl: ; zgfbekbyha-nokacxa-kogtkxme (BUTALBITA L COMPOUND/ASA) per tablet, One tablet [...] [place] | | | | | | [address] | | | | | | | [...]
--- OUTSIDE RECORDS SUMMARY | ~2019-05-03 | XMS | Encounter Summary ---
Demographics + + + | Address | [address] | | | [place] [address] | + + + | Home Phone [...] | | | | | [place] [address] | | + + + + + | Robson Escobar | ECON | Unknown | | + + + + + | Isabella Whitehead | ECON | Unknown | | + + + + + Care Team Providers + +------+ + | Care Resident Services Director Name | Role | Phone | [...] + + | 04/04/ | Office | [facility] | Navdeep Grande, | Abnormal chest CT | | 2011 | Visit | PULMONARY [address] | MD [address] | (Primary Dx) | | | | [place], | [place] | | | | | [place] [address] | [address] | | | | | [phone] | | | +--------+---------+ + + + [...] FLEXPEN SC), SOLN, Disp: , Rfl: ; uikqkabpyz-bckqdgv-hrliujjt (BUTALBITAL COMPOUND/ A) per tablet, One tablet [...] MICHELLE | | | | | | [address] | | | | | | | | +--------+---------+ + + + | 07/26/ | Office | Pulmonology | Navdeep Grande, | | | 2019 | Visit | | MD [address] | | | | | | [place] | | | | | | [address] | | | | | | | | +--------+---------+ + + + documented as of this encounter Results XR Chest PA and Lateral (10/18/2012 11:44 AM PDT) + + | Specimen | + + | | + + + + + | Narrative | Performed At | + + + | [facility] | [place] | | Department [address] [place] [address] | [facility] | | [ rep [address]] [ rep [facility] | | st zip] Signed | - IMAGING | | | | | Patient Name: CARLINE ESCOBAR Physician: | | | : 1970 Age: 42 Sex: F Unit #: [id number] | | | Exam Date: 10/18/12 Location: [facility] | | | Report #: [id number] Page: | | | %(RAD)RES..mtdd.print.filter("pg") of %(RAD) | | | RES..mtdd.print.filter("tpg") | | | | | | Accession Number: [id number] | | | TWO VIEW CHEST CLINICAL [...] Transcribed Date/Time: 10/18/2012 12:20 | | | Station Attendant: <<Signature on | | | File>> | | | Ace Avrey MD10/18/12 1439 <Electronically signed by | | | Ace Avery MD> Ace Avery MD 10/18/12 | | | 1144 Station Attendant: [employer] Jdglfikqwlqpg25/02/13 1220 | | | Navdeep Grande MD | | + + + + + + + + | Performing | Address | City/State/Zipcode | Phone Number | | Organization | | | | + + + + + | [facility] | [address] | [place], [place] | [phone] | | [facility] | | [address] | | | - IMAGING | | | | + + + + + documented in this encounter Visit Diagnoses + + | Diagnosis | + + | Abnormal chest CT - Primary Nonspecific (abnormal) findings on radiological and other | | examination of other intrathoracic organs | + + documented in this encounter
--- OUTSIDE RECORDS SUMMARY | ~2019-05-03 | XMS | Encounter Summary ---
Demographics + + + | Address | [address] | | | [place] [address] | + + + | Home Phone [...] | | | | | [place] [address] | | + + + + + | Robson Min | ECON | Unknown | | + + + + + | Isabella Whitehead | ECON | Unknown | | + + + + + Care Team Providers + +------+ + | Care Manager Equipment Name | Role | Phone | + [...] | | | Pulmonology | (chronic | [address] | [address] | | | | | obstructive | [address] | [place], | | | | | pulmonary | [place] | [place] [address] | | | | | disease) | [address] | Phone: | | | | | ([facility]) | [place] | [phone] | | | | | Procedures | [address] | Fax: | | | | | F/U APPEver CRUZ | Phone: | [phone] | | | | | [place] | [phone] | | | | | | 11/19/17 [...] Dx); Tobacco use | | | | [place], | [place], [place] | disorder; COPD, mild | | | | [place] [address] | [address] | ([facility]); Alveolar | | | | [phone] | | hypoventilation | +--------+---------+ + + [...] instructions provided by your healthcare provider or [employer]. Check the oxygen supply level on the [...] if you have one. Date Last Reviewed: 08/18/201519998150-2702 [employer]. [address] [place] [address], [place] [address]. All righ ts reserved. This information is not intended as a substitute for professional medical care. Always follow your healthcare professional's instructions. documented in this encounter Progress Notes Navdeep Grande MD - 11/19/2017 11:30 AM PDTFormatting of this note might be different f rom the original. Pulmonary Follow Up 11/19/2017 HPI Kait Min is a 47 y.o. female patient of Brat Ba, DO here today for follow up [...] 50,000 Units by mouth Once a w ambler., Disp: , Rfl: fluticasone-salmeterol (ADVAIR DISKUS) 250-50 [...] patient. The Chest CT(s) was performed at [facility]. No evidence of pulmonary emboli. [...] MICHELLE | | | | | | [address] | | | | | | | | +--------+---------+ + + + | 07/26/ | Office | Pulmonology | Navdeep Grande, | | | 2019 | Visit | | [address] | | | | | | [place] | | | | | | [id number] | | | | | | | [...]
--- OUTSIDE RECORDS SUMMARY | ~2019-05-03 | XMS | Encounter Summary ---
Demographics + + + | Address | [address] | | | [place] [address] | + + + | Home Phone [...] | | | | | [place] [address] | | + + + + + | Robson Min | ECON | Unknown | | + + + + + | Isabella Whitehead | ECON | Unknown | | + + + + + Care Team Providers + +------+ + | Care Sulfur Chloride Operator Name | Role | Phone | [...] | Radiology | Dizziness | [place], | [facility] | | | | | Procedures | [address] | | | | | ECHO | [address] | [address] | | | | | Complete | [place] | [place] | | | | | | [place], [place] | [address] | | | | | | [address] | Phone: | | | | | | Phone: | [phone] | | | | | | [phone] | Fax: | | | | | | Fax: | [phone] | | | | | | [phone] | | +--------+--------+ + + + + [...] | | first degree | [place], | [place], [place] | | | | | Procedures | [place] | [address] Phone: | | | | | consult | [address] | [phone] | | | | | | Phone: | Fax: | | | | | | [phone] | [phone] | | | | | | Fax: | | | | | | | [phone] | | + +--------+ + + + + Encounter Details +--------+---------+ + + + | Date | Type | Department | Care Team | Description | +--------+---------+ + + + | 01/03/ | Office | [facility] | Laine Btaista DO | Atrioventricular | | 2019 | Visit | CARDIOLOGY [place] | [address] | block (Primary Dx); | | | | [address] | [place], [place] | Dizziness; | | | | [place] | [address] | Palpitations; | | | | [address] | | Hypertension, | | | | [phone] | | unspecified type; | | | [...] Batista DO - 01/03/2019 1:[address] [facility] Cardiology Cardiology Consult Note Reason for Consultation: first degree AVB Requesting Physician: Ora Slatre History Obtained From: patient HISTORY OF PRESENT [...] ago. She was previously followed by Dr. Celsete calderón for history of high blood pressure [...] decortication changes Acid reflux disease Angina pectoris ([facility]) Arrhythmia Bipolar 1 disorder ([facility]) CHRONIC TENSION HEADACHE Classical migraine without mention of intractable migraine Diabetes mellitus, type 2 ([facility]) Empyema lung ([facility]) 2006 right GI bleeding Hypercholesterolemia Hypertension Hypothyroidism IBS (irritable bowel syndrome) Knee pain Lymphedema Myocardial infarction ([facility]) Nausea and vomiting Nocturia Obesity Panic anxiety syndrome Pneumonia Pyoderma gangreosum-LE RA (rheumatoid arthritis) ([facility]) Followed by Dr. Becerra Rheumologist in [place] Reflux esophagitis Restless leg syndrome Urinary [...] Gluc Sensor (FREESTYLE HUAN 14 DAY SENSOR) [facility] [DISCONTINUED] ergocalciferol (VITAMIN D-2) 50,000 units capsule [...] mouth 2 times daily. Respiratory Therapy Supplies [facility] Portable oxygen concentrator to provide O2 at [...] MICHELLE | | | | | | [address] | | | | | | | | +--------+---------+ + + + | 07/26/ | Office | Pulmonology | Navdeep Grande, | | | 2019 | Visit | | MD [address] | | | | | | [place] | | | | | | [address] | | | | | | | [...] | | | | | by [facility] Read [facility], | | | | | | [facility] [place] (502), | | | | | | mapping editor Anupam Sanz | | | | [...]
--- OUTSIDE RECORDS SUMMARY | ~2019-05-03 | XMS | Encounter Summary ---
Demographics + + + | Address | [address] | | | [place] [address] | + + + | Home Phone [...] | | | | | [place] [address] | | + + + + + [...] | | 2006 | Therapy | | [phone] | | +--------+ + + + + [...] | | | Y | Lisa Wahl, GLASS ENAMEL MIXER | | | | + + + [...] [facility] | [address] | [place], [place] | | | DIAGNOSTICS - | [address] | [address] | | | PULMONARY FUNCTION | | | | + + + + + documented in this encounter Visit Diagnoses Not on filedocumented in this encounter"
--- OUTSIDE RECORDS SUMMARY | ~2019-05-03 | XMS | Encounter Summary ---
Demographics + + + | Address | [address] | | | [place] [address] | + + + | Home Phone [...] | | | | | [place] [address] | | + + + + + | Robson Min | ECON | Unknown | | + + + + + | Isabella Whitehead | ECON | Unknown | | + + + + + Care Team Providers + +------+ + | Care Waste Duster Name | Role | Phone | + [...] | | | Pulmonology | respiratory | [address] | [address] | | | | | failure, | [address] | [place], | | | | | unspecified | [place] | [place] [address] | | | | | whether with | [address] | Phone: | | | | | hypoxia or | [place], [place] | [phone] | | | | | hypercapnia | [address] | Fax: | | | | | ([facility]) | Phone: | [phone] | | | | | Procedures | [phone] | | | | | | F/U LAST | | | | | | | SEEN | | | | | | | 05/26/16 | | | +--------+--------+ + + + + Encounter Details +--------+---------+ + + + | Date | Type | Department | Care Team | Description | +--------+---------+ + + + | 10/18/ | Office | [facility] | Navdeep Grande, | COPD, mild (HCC) | | 2018 | Visit | PULMONARY [address] | MD [address] | (Primary Dx); | | | | [place], | [place], [place] | Alveolar | | | | [place] [address] | [id number] | hypoventilation | | | | [phone] | | | +--------+---------+ + + + [...] information carefully each time. Talk to your devops regarding the use of this medicine in children. Special care may be needed. What side effects may I notice from receiving this medicine? Side effects that you should report to your doctor or health care team assistant as soon as p ossible: allergic reactions like skin rash or hives, swelling of the face, lips, or tongue chest pain dizziness or lightheaded fever or chills irregular heartbeat vision problems Side effects that usually do not require medical attention (report to your doctor or health care team assistant if they continue or are bothersome): coughing, [...] check ups. Tell your doctor or health care team assistant if yo ur symptoms do not get [...] have surgery tell your doctor or health care team assistant that you are using this medicine. Try [...] and was hospitalized for 4 days at [facility] with respiratory failure/COPD exacerbation. She was discharged [...] type 2 (HCC) Empyema lung ([facility]) 2006 [...] 50,000 Units by mouth Once a w kashia., Disp: , Rfl: HYDROcodone-acetaminophen (NORCO) 7.5-325 mg [...] supplemental oxygen 1 L per min [facility] while sleeping. Total duration of the [...] MICHELLE | | | | | | [address] | | | | | | | | +--------+---------+ + + + | 07/26/ | Office | Pulmonology | Navdeep Grande, | | | 2019 | Visit | | MD Cely GORE | | | | | | [place] | | | | | | [id number] | | | | | | | [...] | signed by: Navdeep Grande MD 11/19/2017 12:24[facility] | | |physiology. Lung volume [...] Navdeep Grande MD 11/19/2017 12:24 | | |[facility] | | + + + documented in this encounter Visit Diagnoses + + | Diagnosis | + + | COPD, mild (HCC) - Primary Chronic airway obstruction, not elsewhere classified | + + | Alveolar hypoventilation Other dyspnea and respiratory abnormality | + + documented in this encounter
--- OUTSIDE RECORDS SUMMARY | ~2019-05-03 | XMS | Encounter Summary ---
Demographics + + + | Address | [address] | | | [place] [address] | + + + | Home Phone [...] | | | | | [place] [address] | | + + + + + | Robson Min | ECON | Unknown | | + + + + + | Isabella Whitehead | ECON | Unknown | | + + + + + Care Team Providers + +------+ + | Care Old Coin Dealer Name | Role | Phone | + +------+ + | Bart Ba DO | PCP | | + +------+ + Encounter Details +--------+ + + + + | Date | Type | Department | Care Team | Description | +--------+ + + + + | 10/18/ | Hospital | [facility] | Navdeep Grande, | Abnormal chest CT | | 2012 | Encounter | MED CTR XRAY [address] | MD [address] | | | | | [place] | [place], [place] | | | | | [place] [address] | [address] | | | | | [phone] | | | +--------+ + + + [...] | 0 | 10/08/19 | | | wvvsullmbl-uwpjjyh-x | every 6 hours as | | [...] [place] | | | | | | [id number] | | | | | | | | +--------+---------+ + + + | 07/26/ Office | Pulmonology | Navdeep Grande, | | | 2019 | Visit | | [address] | | | | | | [place] | | | | | | [address] | | | | | | | [...] Performed At | + + + | [facility] Diagnostic Imaging | [place] | | Department [address] | [facility] | | [ rep ct [address]] [ rep [facility] | | st zip] Signed | - IMAGING | | | | | Patient Name: CARLINE MIN Physician: | | | RODRI : 1970 Age: 42 Sex: F Unit #: [id number] | | | Exam Date: 10/18/12 Location: [facility] | | | Report #: [id number] Page: | | | %(RAD)RES..mtdd.print.filter("pg") of %(RAD) | | | RES..mtdd.print.filter("tpg") | | | | | | Accession Number: [id number] | | | TWO VIEW CHEST CLINICAL [...] Transcribed Date/Time: 10/18/2012 12:20 | | | Floor Coverings Salesperson: <<Signature on | | | File>> | | | Ace Avery MD10/18/12 1439 <Electronically signed by | | | Ace Avery MD> Ace Avery MD 10/18/12 | | | [address] Cover[address] Salesperson: Maria L Kdhrnfghlmrkd36/02/13 1220 | | | Navdeep Grande MD | | + + + + + + + + | Performing | Address | City/State/Zipcode | Phone Number | | Organization | | | | + + + + + | [facility] | [address] | [place] | [phone] | | [facility] | | [address] | | | - IMAGING | | | | + + + + + documented in this encounter Visit Diagnoses + + | Diagnosis | + + | Abnormal chest CT Nonspecific (abnormal) findings on radiological and other | | examination of other intrathoracic organs | + + documented in this encounter
--- OUTSIDE RECORDS SUMMARY | ~2019-05-03 | XMS | Encounter Summary ---
Demographics + + + | Address | [address] | | | [place] [address] | + + + | Home Phone [...] | | | | | [place] [address] | | + + + + + Care Team Providers + +------+ + | Care Aquatics Coordinator Name | Role | Phone | [...] DEPARTMENT OF | [address] | [place] [address] | | | PATHOLOGY | [address] | | | + + + + + | [facility] DEPARTMENT OF | [address] | [place] [address] | | | PATHOLOGY | [address] [...] | + + + + + | [facility] | [address] | [place] [address] | | | PATHOLOGY | [address] | | | + + + + + | [facility] | [facility] | [place] [address] | | | PATHOLOGY | [address] | | | + + + + + documented in this encounter Visit Diagnoses Not on filedocumented in this encounter"
--- OUTSIDE RECORDS SUMMARY | ~2019-05-03 | XMS | Encounter Summary ---
Demographics + + + | Address | [address] | | | [place] [address] | + + + | Home Phone [...] | | | | | [place] [address] | | + + + + + Care Team Providers + +------+ + | Care Consumer Banker Name | Role | Phone | + [...] as of this encounter Progress Notes Interface, Reheater Helper In - 03/06/2006 5:10 AM [facility] [place] [facility] [place], [place] [address] or September 23, 1999 Renan Bright MD [address] [place] [address] RE: CARLINE MIN MR #: [id number] Dear Dr. Bright: I saw your patient, [...] more and will be interviewed by our emergency management coordinator. We will obtain some x-rays and labs to further screen her for candidacy. PLAN 1. The patient to meet with emergency management coordinator today regarding IL-1 RA study. 2. Labs today to include CBC, liver function tests, C-reactive protein and erythrocyte sedimentation rate. 3. X-rays of the hands today. 4. 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 I would appreciate it if those results could be faxed to me at this clinic: [phone]. 5. She will be made a follow-up appointment either with me or as part of the above-mentioned study. Again, thank you for allowing me to participate in this Ms. Min's care and please call if you wish to discuss her case further. Sincerely, Ameya Steen M.D. Rheumatology Fellow [facility] / PHIL [id number] / [id number] / [id number] / [id number] signed by Interface, Reheater Helper In at 03/06/2006 5:10 AM PSTdocume nted in this encounter Plan of Treatment Not on filedocumented as of this encounter Visit Diagnoses Not on filedocumented in this encounter"
--- OUTSIDE RECORDS SUMMARY | ~2019-05-03 | XMS | Encounter Summary ---
Demographics + + + | Address | [address] | | | [place] [address] | + + + | Home Phone | | + + + | Preferred Language | Unknown | + + + | Marital Status | Single | + + + | Confucianist Affiliation | CHR | + + + [...] | | | | | [place] [address] | | + + + + + Care Team Providers + +------+ + | Care Social Worker Masters Name | Role | Phone | + [...] | | | | | Cathryn Feldman [place], | | | | | | [place] [address] | | | | | | [phone] | | | | | | | [...] | | + +---------+ + + | [facility] DEPARTMENT OF | | | | | RADIOLOGY | | | | + +---------+ + + documented in this encounter Visit Diagnoses Not on filedocumented in this encounter"
--- OUTSIDE RECORDS SUMMARY | ~2019-05-03 | XMS | Encounter Summary ---
Demographics + + + | Address | [address] | | | [place] [address] | + + + | Home Phone [...] | | | | | [place] [address] | | + + + + + | Robson Min | ECON | Unknown | | + + + + + | Isabella Whitehead | ECON | Unknown | | + + + + + Care Team Providers + +------+ + | Care Bench Assembly Inspector Name | Role | Phone | [...] RN | Alveolar | | | | [place], | | hypoventilation; | | | | [place] [address] | | Hypoxemia | | | | [phone] | | | +--------+ + + + [...] [place]HEL[place] | | | | | | [address] | | | | | | | | +--------+---------+ + + + | 07/26/ | Office | Pulmonology | Navdeep Grande, | | | 2019 | Visit | | MD Cely GORE | | | | | | [place] | | | | | | [address] | | | | | | | [...]
--- OUTSIDE RECORDS SUMMARY | ~2019-05-03 | XMS | Encounter Summary ---
Demographics + + + | Address | [address] | | | [place] [address] | + + + | Home Phone [...] | | | | | [place] [address] | | + + + + + Care Team Providers + +------+ + | Care Real Estate Photographer Name | Role | Phone | + [...] as of this encounter Progress Notes Interface, Mohs Surgeon In - 02/18/2006 3:06 AM PSTCLINIC DATE: 06/10/2000 RHEUMATOLOGY CLINIC HISTORY OF PRESENT ILLNESS: Ms. Kait Min is a 30-year-old female with a diagnosis of rheumatoid arthritis. She has been followed in the Rheumatology Clinic at [facility] by Dr. Ameya Steen in the [...] En[place] by her primary care doctor in [place] with the guidance of Dr. Steen. She [...] her fingers bilaterally. 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 She has bilateral synovial cysts on [...] address. Dorene Waite M.D. Deyvi Lainez M.D. [facility] / HS [id number] / [id number] / [id number] / [id number] signed by Interface, Mohs Surgeon In at 02/18/2006 3:06 AM PSTdocume nted in this encounter Plan of Treatment Not on filedocumented as of this encounter Visit Diagnoses Not on filedocumented in this encounter"
--- OUTSIDE RECORDS SUMMARY | ~2019-05-03 | XMS | Encounter Summary ---
Demographics + + + | Address | [address] | | | [place] [address] | + + + | Home Phone [...] | | | | | [place] [address] | | + + + + + | Robson Min | ECON | Unknown | | + + + + + | Isabella Whitehead | ECON | Unknown | | + + + + + Care Team Providers + +------+ + | Care Dressmaker Helper Name | Role | Phone | + +------+ + | Ora Slater | PCP | | + +------+ + Encounter Details +--------+ + + + + | Date | Type | Department | Care Team | Description | +--------+ + + + + | 09/08/ | Documentati | [facility] | Neno Walker | | | 2018 | on | SLEEP DISORDER [address] | MD Srinivas [address] | | | | | [address] | [address] [place] | | | | | [place] [address] | [place] [address] | | | | | [phone] | [phone] | | | | | | | [...] [place]HEL[place] | | | | | | [address] | | | | | | | | +--------+---------+ + + + | 07/26/ | Office | Pulmonology | Navdeep Grande, | | | 2019 | Visit | | MD Cely GORE | | | | | | [place] | | | | | | [address] | | | | | | | | +--------+---------+ + + + documented as of this encounter Visit Diagnoses + + | Diagnosis | + + | Hypoventilation - Primary Other dyspnea and respiratory abnormality | + + documented in this encounter"
--- OUTSIDE RECORDS SUMMARY | ~2019-05-03 | XMS | Encounter Summary ---
Demographics + + + | Address | [address] | | | [place] [address] | + + + | Home Phone [...] | | | | | [place] [address] | | + + + + + Care Team Providers + +------+ + | Care District Claims Manager Name | Role | Phone | + +------+ + PCP | Unavailable | + +------+ + Encounter Details +--------+ + + + + | Date | Type | Department | Care Team | Description | +--------+ + + + + | 11/03/ | Respiratory | | Other, Faculty | | | 2006 | Therapy | | [phone] | | +--------+ + + + + [...] | | | Y | Edwina Edwards, ETL TESTER | | | | + + [...] [facility] | [address] | [place], [place] | | | DIAGNOSTICS - | [place] | [address] | | | PULMONARY FUNCTION | | | | + + + + + documented in this encounter Visit Diagnoses Not on filedocumented in this encounter"
--- OUTSIDE RECORDS SUMMARY | ~2019-05-03 | XMS | Encounter Summary ---
Demographics + + + | Address | [address] | | | [place] [address] | + + + | Home Phone [...] | | | | | [place] [address] | | + + + + + Care Team Providers + +------+ + | Care Dumpster Operator Name | Role | Phone | + +------+ + PCP | Unavailable | + +------+ + Encounter Details +--------+ + + + + | Date | Type | Department | Care Team | Description | +--------+ + + + + | 10/31/ | Respiratory | | Other, Faculty | | | 2006 | Therapy | | [phone] | | +--------+ + + + + [...] Cabrera, | | | | | | RUBBER STAMP DIE INSPECTOR | | | | + + + [...] | + + + + + | [facility] | [address] | [place], [place] | | | DIAGNOSTICS - | [place] | [address] | | | PULMONARY FUNCTION | | | | + + + + + documented in this encounter Visit Diagnoses Not on filedocumented in this encounter"
--- OUTSIDE RECORDS SUMMARY | ~2019-05-03 | XMS | Encounter Summary ---
Demographics + + + | Address | [address] | | | [place] [address] | + + + | Home Phone [...] | | | | | [place] [address] | | + + + + + | Robson Min | ECON | Unknown | | + + + + + | Isabella Whitehead | ECON | Unknown | | + + + + + Care Team Providers + +------+ + | Care Monitor Car Operator Name | Role | Phone | [...] | nocturnal pulse | | | | Hershey Lenora Cooley, | [place] | oximetry on O2 at 1 | | | | [place] [address] | [address] | l/m) | | | | [phone] | | | +--------+ + + + [...] [place]HEL[place] | | | | | | [address] | | | | | | | | +--------+---------+ + + + | 07/26/ | Office | Pulmonology | Navdeep Grande, | | | 2019 | Visit | | MD Cely GORE | | | | | | [place] | | | | | | [address] | | | | | | | | +--------+---------+ + + + documented as of this encounter Visit Diagnoses Not on filedocumented in this encounter"
--- OUTSIDE RECORDS SUMMARY | ~2019-05-03 | XMS | Clinical Summary ---
Demographics + + + | Address | [address] | | | [place] [address] | + + + | Home Phone [...] | | | | | [place] [address] | | + + + + + Care Team Providers + +------+ + | Care Art Librarian Name | Role | Phone | + +------+ + | Bart Ba DO | PCP | | + +------+ + Source Comments [facility] is fully live on both [facility] and [facility] Allergies + + + + + [...]
--- OUTSIDE RECORDS SUMMARY | ~2019-05-03 | XMS | Encounter Summary ---
Demographics + + + | Address | [address] | | | [place] [address] | + + + | Home Phone [...] | | | | | [place] [address] | | + + + + + | Robson Min | ECON | Unknown | | + + + + + | Isabella Whitehead | ECON | Unknown | | + + + + + Care Team Providers + +------+ + | Care Newspaper Reporter Name | Role | Phone | [...] Zhou PEARSON | | | | | [phone] | [place] [address] | | +--------+ + + + + [...] [place] | | | | | | [address] | | | | | | | | +--------+---------+ + + + | 07/26/ | Office | Pulmonology | Navdeep Grande, | | | 2019 | Visit | | [address] | | | | | | [place] | | | | | | [address] | | | | | | | [...]
--- OUTSIDE RECORDS SUMMARY | ~2019-05-03 | XMS | Encounter Summary ---
Demographics + + + | Address | [address] | | | [place] [address] | + + + | Home Phone [...] | | | | | [place] [address] | | + + + + + Care Team Providers + +------+ + | Care Jukebox Route Driver Name | Role | Phone | + +------+ + PCP | Unavailable | + +------+ + Encounter Details +--------+ + + + + | Date | Type | Department | Care Team | Description | +--------+ + + + + | 11/02/ | Respiratory | | Other, Faculty | | | 2006 | Therapy | | [phone] | | +--------+ + + + + [...] | | | Y | Lisa Wahl, RECORD CHANGER ASSEMBLER | | | | + + + [...] [facility] | [address] | [place], [place] | | | DIAGNOSTICS - | [place] | [address] | | | PULMONARY FUNCTION | | | | + + + + + documented in this encounter Visit Diagnoses Not on filedocumented in this encounter"
--- OUTSIDE RECORDS SUMMARY | ~2019-05-03 | XMS | Encounter Summary ---
Demographics + + + | Address | [address] | | | [place] [address] | + + + | Home Phone [...] | | | | | [place] [address] | | + + + + + Care Team Providers + +------+ + | Care Executive Administrator Name | Role | Phone | + +------+ + PCP | Unavailable | + +------+ + Encounter Details +--------+ + + + + | Date | Type | Department | Care Team | Description | +--------+ + + + + | 10/30/ | Respiratory | | Other, Faculty | | | 2006 | Therapy | | [phone] | | +--------+ + + + + [...] [facility] | [address] | [place], [place] | | | DIAGNOSTICS - | [place] | [address] | | | PULMONARY FUNCTION | | | | + + + + + documented in this encounter Visit Diagnoses Not on filedocumented in this encounter"
--- OUTSIDE RECORDS SUMMARY | ~2019-05-03 | XMS | Encounter Summary ---
Demographics + + + | Address | [address] | | | [place] [address] | + + + | Home Phone [...] | | | | | [place] [address] | | + + + + + Care Team Providers + +------+ + | Care Wafer Polishing Lead Worker Name | Role | Phone | [...] | | | | Mailcode: L[address] | [place], [place] | | | | | [facility] | [address] | | | | | [place], [place] | [phone] | | | | | [address] | | | | | | [phone] | | | +--------+ + + + [...] + +---------+ + + | [facility] DEPARTMENT OF | | | | | RADIOLOGY | | | | + +---------+ + + documented in this encounter Visit Diagnoses Not on filedocumented in this encounter"
--- OUTSIDE RECORDS SUMMARY | ~2019-05-03 | XMS | Encounter Summary ---
Demographics + + + | Address | [address] | | | [place] [address] | + + + | Home Phone [...] | | | | | [place] [address] | | + + + + + Care Team Providers + +------+ + | Care Neurology Hospitalist Name | Role | Phone | [...] as of this encounter Discharge Summaries Interface, Seed Analyst In - 10/10/2005 1:[address] [address] [facility] MEDICAL SUMMARY OF HOSPITALIZATION Med Rec No: [...] transferred from an outside hospital on the [facility]. She initially presented to the emergency department [...] 3. Synthroid 300 mcg p.o. everyday. 4. Ueafh-Fnh-Vdsmfp one tablet p.o. everyday. 5. Vioxx 25 [...] AR:y00 FAX: BART ELMORE MD OFFICE NUMBER [phone] [id number] signed by Interface, Seed Analyst In at 10/10/2005 1:11 AM PDTdoc umented in this encounter Plan of Treatment Not on filedocumented as of this encounter Visit Diagnoses Not on filedocumented in this encounter"
--- OUTSIDE RECORDS SUMMARY | ~2019-05-03 | XMS | Encounter Summary ---
Demographics + + + | Address | [address] | | | [place] [address] | + + + | Home Phone [...] | | | | | [place] [address] | | + + + + + Care Team Providers + +------+ + | Care Focuser Name | Role | Phone | + +------+ + PCP | Unavailable | + +------+ + Encounter Details +--------+ + + + + | Date | Type | Department | Care Team | Description | +--------+ + + + + | 10/28/ | Respiratory | | Other, Faculty | | | 2006 | Therapy | | [phone] | | +--------+ + + + + [...] [facility] | [address] | [place], [place] | | | DIAGNOSTICS - | [place] | [address] | | | PULMONARY FUNCTION | | | | + + + + + documented in this encounter Visit Diagnoses Not on filedocumented in this encounter"
--- OUTSIDE RECORDS SUMMARY | ~2019-05-03 | XMS | Encounter Summary ---
Demographics + + + | Address | [address] | | | [place] [address] | + + + | Home Phone [...] | | | | | [place] [address] | | + + + + + | Robson Min | ECON | Unknown | | + + + + + | Isabella Whitehead | ECON | Unknown | | + + + + + Care Team Providers + +------+ + | Care Interior Specialist Name | Role | Phone | [...] | Visit | HOSPITAL NEUROLOGY | Theo, ASSISTANT PROFESSOR OF PHILOSOPHY [address] | with aura without | | | | CLINIC [address] | [address] [facility], | status migrainosus | | | | [place], | [place] [address] | (Primary Dx); | | | | [place] [address] | [phone] | Confusion and | | | | [phone] | | disorientation; | | | | | | Diabetic | | | | | | polyneuropathy | | | | | | associated with type | | | | | | 2 diabetes mellitus | | | | | | ([facility]) | +--------+---------+ + + + Social History [...] before each headache. Show this to your [facility] provider to help find the cause [...] Difficulty talking or seeing Date Last Reviewed: 11/18/201519999028-[address] [place] [address]. All righ ts reserved. This information is [...] early if it happens. Date Last Reviewed: 08/17/201719990057-9383 [employer]. [address] [place], [place] [id number]. All righ ts reserved. This information is [...] Nonsteroidal anti-inflammatory drugs (such as ibuprofen, available bezo-ryt-hgmafzy) ? Beta-blockers ? Anticonvulsants ? Tricyclic antidepressants [...] of caffeine you consume. Date Last Reviewed: 08/17/201719991527-8340 [employer]. [address] [place] [address]. All righ ts reserved. This information is not intended as a substitute for professional medical care. Always follow your healthcare professional's instructions. documented in this encounter Progress Notes Theo Potter FNP - 09/16/2018 9:45 AM PDT Patient: Kait Min Medical Record: [id number] Date of Services: 09/16/2018 Referring Doctor: TIMOTHY [...] are intact. There is no dysmetria on zbjajh-bf-eynp and kibc-qsqo-zuru. There are no abnormal or extraneous movements. [...] least 30 minutes three times a w wichita will help reduce frequency or severity of [...] prescribed by her PCP. We also discussed vmfz-lpk-klnipib medications which could help with her symptoms [...] [place] | | | | | | [id number] | | | | | | | | +--------+---------+ + + + | 07/26/ | Office | Pulmonology | Navdeep Grande, | | | 2019 | Visit | | [address] | | | | | | [place] | | | | | | [address] | | | | | | | [...] | | Sincerely, Jimbo Samayoa M.D. Neurologist [phone] | | | Electronically signed | | [...]
--- OUTSIDE RECORDS SUMMARY | ~2019-05-03 | XMS | Encounter Summary ---
Demographics + + + | Address | [address] | | | [place] [address] | + + + | Home Phone [...] | | | | | [place] [address] | | + + + + + | Robson Min | ECON | Unknown | | + + + + + | Isabella Whitehead | ECON | Unknown | | + + + + + Care Team Providers + +------+ + | Care Pigment Grinder Name | Role | Phone | [...] | | | | with aura, | PHARMACOVIGILANCE SCIENTIST [address] | [address] | | | | | intractable, | [address] | DR, [place] [address] [place] | | | | | without | [address] | [place], [place] | | | | | status | [place], [place] | [address] Phone: | | | | | migrainosus | [address] | [phone] | | | | | Procedures | Phone: | Fax: | | | | | BOTOX | [phone] | [phone] | | | | | INJECTION | Fax: | | | | | | PAIN CLINIC | [phone] | | | | | | PROCEDURE [...] (Primary Dx) | | | | [place] [address] | | | | | | [phone] | | | +--------+ + + + [...] [place] | | | | | | [address] | | | | | | | | +--------+---------+ + + + | 07/26/ | Office | Pulmonology | Navdeep Grande, | | | 2019 | Visit | | [address] | | | | | | [place] | | | | | | [address] | | | | | | | [...]
--- OUTSIDE RECORDS SUMMARY | ~2019-05-03 | XMS | Encounter Summary ---
Demographics + + + | Address | [address] | | | [place] [address] | + + + | Home Phone [...] | | | | | [place] [address] | | + + + + + | Robson Min | ECON | Unknown | | + + + + + | Isabella Whitehead | ECON | Unknown | | + + + + + Care Team Providers + +------+ + | Care Performing Arts Road Manager Name | Role | Phone | [...] 2019 | | HOSPITAL NEUROLOGY | Theo, [facility] [address] | Authorization | | | | CLINIC [address] | [address] [facility], | (Botox) | | | | DR [place], | [place] [address] | | | | | [place] [address] | [phone] | | | | | [phone] | | | +--------+ + + + [...] [place] | | | | | | [address] | | | | | | | | +--------+---------+ + + + | 07/26/ | Office | Pulmonology | Navdeep Grande, | | | 2020 | Visit | | MD Cely GORE | | | | | | [place] | | | | | | [address] | | | | | | | | +--------+---------+ + + + documented as of this encounter Visit Diagnoses Not on filedocumented in this encounter"
--- OUTSIDE RECORDS SUMMARY | ~2019-05-03 | XMS | Encounter Summary ---
Demographics + + + | Address | [address] | | | [place] [address] | + + + | Home Phone [...] | | | | | [place] [address] | | + + + + + | Robson Min | ECON | Unknown | | + + + + + | Isabella Whitehead | ECON | Unknown | | + + + + + Care Team Providers + +------+ + | Care Design Quality Engineer Name | Role | Phone [...] Results, Imaging | | 2018 | | [facility] | [address] | | | | | CLINIC [address] | [place] | | | | | DR [place]AC[place], | [address] | | | | | [place] [address] | | | | | | [phone] | | | +--------+ + + + [...] [place] | | | | | | [address] | | | | | | | | +--------+---------+ + + + | 07/26/ | Office | Pulmonology | Navdeep Grande, | | | 2020 | Visit | | [address] | | | | | | [place] | | | | | | [address] | | | | | | | | +--------+---------+ + + + documented as of this encounter Visit Diagnoses Not on filedocumented in this encounter"
--- OUTSIDE RECORDS SUMMARY | ~2019-05-03 | XMS | Encounter Summary ---
Demographics + + + | Address | [address] | | | [place] [address] | + + + | Home Phone [...] | | | | | [place] [address] | | + + + + + | Robson Min | ECON | Unknown | | + + + + + | Isabella Whitehead | ECON | Unknown | | + + + + + Care Team Providers + +------+ + | Care Coal Digger Name | Role | Phone | + [...] | | | | | pain, | [address] | [address] | | | | | generalized | Giovanna [address] | [place], | | | | | follow up | [place] | [place] [address] | | | | | abd pain, | [address]106 | Phone: | | | | | nause & | [place] | [phone] | | | | | vomiting/per | [address] | Fax: | | | | | swathi/pcp | Phone: | [phone] | | | | | shade/brad/ | [phone] | | | | | | called for | | | | | | | referral | | | | | | | 6/18/14nns | | | | | | | Procedures | | | | | | | [place] OFFICE | | | | | | [...] + | 11/01/ | Office | [facility] | Cecilio Amato MD | Nausea & vomiting | | 2014 | Visit | GASTROENTEROLOGY | [address] | (Primary Dx); IBS | | | | [address] [facility] | [place], [place] | (irritable bowel | | | | [address] [place] [address] | [address] | syndrome) | | | | [address] | [phone] | | | | | [phone] | | | +--------+---------+ + + + [...] 50 mg by mouth 4 times daily. svpjxjqmqk-oiyqxld-tylosbwd (BUTALBITAL COMPOUND/ASA) per tablet One tablet by [...] Ramos MD - 0 11/01/2013 12:00 AM [facility] GASTROENTEROLOGY [address] [facility] [address] [place] [address] FAX: [phone] OFFICE VISIT OUTPATIENT GI FOLLOWUP CHIEF COMPLAINT: [...] I encouraged her to speak to her water resource project manager regarding finding an alternative medication and discontinuing [...] discuss stopping azathioprine and hydrocodone, with her water resource project manager. Cecilio Amato MD / Fany JOB #: [id number] signed by Cecilio Amato MD at 11/02/2013 [...] [place] | | | | | | [address] | | | | | | | | +--------+---------+ + + + | 07/26/ | Office | Pulmonology | Navdeep Grande, | | | 2019 | Visit | | [address] | | | | | | [place] | | | | | | [address] | | | | | | | | +--------+---------+ + + + documented as of this encounter Visit Diagnoses + + | Diagnosis | + + | Nausea & vomiting - Primary Nausea with vomiting | + + | IBS (irritable bowel syndrome) Irritable bowel syndrome | + + documented in this encounter"
--- OUTSIDE RECORDS SUMMARY | ~2019-05-03 | XMS | Encounter Summary ---
Demographics + + + | Address | [address] | | | [place] [address] | + + + | Home Phone [...] | | | | | [place] [address] | | + + + + + Care Team Providers + +------+ + | Care Medical Device Name | Role | Phone | + +------+ + PCP | Unavailable | + +------+ + Encounter Details +--------+ + + + + | Date | Type | Department | Care Team | Description | +--------+ + + + + | 11/12/ | Transcribed | Allergy Clinic at | Dictation, Other | Transcribed | | 1997 | | [facility] [address] | | | | | | [address] | | | | | | Mailcode: OP[address] | | | | | | [place] [place] | | | | | | [facility] | | | | | | [place] [address] | | | | | | [phone] | | | +--------+ + + + [...] as of this encounter Progress Notes Interface, Coronary Clinical Specialist In - 05/05/2006 1:04 AM PST [address] [address] or November 12, 1997 HERMAN ELMORE MD [address] [facility] [address] [place] [address] RE:CARLINE MIN MR#:[id number] Elmore: We saw your patient, Carline Min, for a rheumatoid consultation at the [facility] on November 12, 1997. The [...] Lainez, or myself. Sincerely, Daniel Laurent M.D. Motor Vehicle License Clerk, Internal Medicine Deyvi Lainez M.D. Greens Laborer, Rheumatology ECS/AB:reji documented in this encounter Plan of Treatment Not on filedocumented as of this encounter Visit Diagnoses Not on filedocumented in this encounter"
--- OUTSIDE RECORDS SUMMARY | ~2019-05-03 | XMS | Encounter Summary ---
Demographics + + + | Address | [address] | | | [place] [address] | + + + | Home Phone [...] | | | | | [place] [address] | | + + + + + | Robson Min | ECON | Unknown | | + + + + + | Isabella Whitehead | ECON | Unknown | | + + + + + Care Team Providers + +------+ + | Care Cutter Banana Room Name | Role | Phone | + +------+ + | Ora Slater | PCP | | + +------+ + Encounter Details +--------+ + + + + | Date | Type | Department | Care Team | Description | +--------+ + + + + | 09/22/ | Hospital | [facility] | Navdeep Grande, | COPD, mild (HCC) | | 2019 | Encounter | MED CTR PULMONARY | MD [address] | | | | | FUNCTION [address] | [place], [place] | | | | | [place], | [address] | | | | | [place] [address] | | | | | | [phone] | Neno Walker | | | | | | MD Srinivas [address] | | | | | | [address] [place] | | | | | | [place] [address] | | | | | | [phone] | | | | | | | [...] [place] | | | | | | [address] | | | | | | | | +--------+---------+ + + + | 07/26/ | Office | Pulmonology | Navdeep Grande, | | | 2019 | Visit | | [address] | | | | | | [place] | | | | | | [address] | | | | | | | [...] Grande MD 09/22/2018 | | | 14:54[facility] | | |physiology. Lung volume testing is [...] Grande MD 09/22/2018 14:54 | | |[facility] | | + + + documented in this encounter Visit Diagnoses + + | Diagnosis | + + | COPD, mild (HCC) Chronic airway obstruction, not elsewhere classified | + + documented in this encounter"
--- OUTSIDE RECORDS SUMMARY | ~2019-05-03 | XMS | Encounter Summary ---
Demographics + + + | Address | [address] | | | [place] [address] | + + + | Home Phone [...] | | | | | [place] [address] | | + + + + + | Robson Min | ECON | Unknown | | + + + + + | Isabella Whitehead | ECON | Unknown | | + + + + + Care Team Providers + +------+ + | Care Reed Polisher Name | Role | Phone | + [...] | | | disease, | [place], | [place] [address] | | | | | unspecified | [place] | Phone: | | | | | (HCC) | [address] | [phone] | | | | | Obstructive | Phone: | Fax: | | | | | sleep apnea | [phone] | [phone] | | | | | (adult) | Fax: | | | | | | (pediatric) | [phone] | | | | | | Procedures [...] + + | 07/18/ | Office | [facility] | Navdeep Grande, | COPD exacerbation | | 2019 | Visit | PULMONARY [address] | MD [address] | ([facility]) (Primary Dx); | | | | [place], | [place], [place] | COPD, mild ([facility]); | | | | [place] [address] | [address] | Alveolar | | | | [phone] | | hypoventilation; | | | | [...] worse Dizziness or weakness Date Last Reviewed: 12/19/201519996339-8436 [employer]. [address] [place] [address]. All righ ts reserved. This information is [...] Min reports 2 hospitalizations in 2018 at [facility] in [facility]. From the patient's description it so unds [...] Ms. Min apparently was evaluated by her profiling machine set up operator, Dr. Becerra, within the last several weeks in [facility]. No co ncerns were identified regarding [...] have requested to Ms. Min that her non-[place] providers forward copies of their assessments for [...] [place] | | | | | | [address] | | | | | | | | +--------+---------+ + + + | 07/26/ | Office | Pulmonology | Navdeep Grande, | | | 2019 | Visit | | [address] | | | | | | [place] | | | | | | [address] | | | | | | | [...]
--- OUTSIDE RECORDS SUMMARY | ~2019-05-03 | XMS | Encounter Summary ---
Demographics + + + | Address | [address] | | | [place] [address] | + + + | Home Phone [...] | | | | | [place] [address] | | + + + + + Care Team Providers + +------+ + | Care Care Associate Name | Role | Phone | + +------+ + PCP | Unavailable | + +------+ + Encounter Details +--------+ + + + + | Date | Type | Department | Care Team | Description | +--------+ + + + + | 10/29/ | Respiratory | | Other, Faculty | | | 2006 | Therapy | | [phone] | | +--------+ + + + + [...] HAYLEY BARNETT | [address] | [place], [place] | | | DIAGNOSTICS - | [address] | [address] | | | PULMONARY FUNCTION | | | | + + + + + documented in this encounter Visit Diagnoses Not on filedocumented in this encounter"
--- OUTSIDE RECORDS SUMMARY | ~2019-05-03 | XMS | Encounter Summary ---
Demographics + + + | Address | [address] | | | [place] [address] | + + + | Home Phone [...] | | | | | [place] [address] | | + + + + + | Robson Min | ECON | Unknown | | + + + + + | Isabella Whitehead | ECON | Unknown | | + + + + + Care Team Providers + +------+ + | Care Dog Food Shredder Operator Name | Role | Phone | [...] Medicine | Nocturnal | Neno Thong | [place] [address] | | | Required | | hypoxia | MD Srinivas [address] | [place] | | | | | Chronic | [place] | [place], | | | | | obstructive | [facility] | [place] [address] | | | | | pulmonary | [place], [place] | Phone: | | | | | disease, | [address] | [phone] | | | | | unspecified | Phone: | Fax: | | | | | COPD type | [phone] | [phone] | | | | | (HCC) | Fax: | | | | | | Procedures | [phone] | | | | | | [place] POLYSOM | | | | | | [...] + + | 10/26/ | Hospital | [facility] | Neno Walker | Nocturnal hypoxia; | | 2019 - | Encounter | MED CTR SLEEP | MD Srinivas [address] [place] [address] | Chronic obstructive | | | | [address] [place] | [facility] | pulmonary disease, | | 10/27/ | | [place] | [place] [address] | unspecified COPD | | 2019 | | [address] | [phone] | type (HCC) | | | | [phone] | | | +--------+ + + + [...] MICHELLE | | | | | | [address] | | | | | | | | +--------+---------+ + + + | 07/26/ | Office | Pulmonology | Navdeep Grande, | | | 2019 | Visit | | [address] | | | | | | [place] | | | | | | [address] | | | | | | | [...] Melly Caceres Sleep | | | [place] [address] | | | Polysomnogram Report on Kait [...] [place] | | | Jr. Walker MD, [facility]ENTERMedical DirectorArkansas State [facility] Sleep | | | Disorders [facility], | | | WAClinical Criminal Legal Assistant of MedicineIntermountain Medical Center | | | [place], [place] | | |In the course of [...] | | | |Neno Walker Jr., MD, [facility] | | |Assistant Branch Operations Manager | | |[facility] | | |[facility] | | |[place] | | |Clinical hotel operations manager | | |[facility] | | |[place], [place] | | + + + + + | Procedure Note | + + | Neno Walker Jr., MD - 10/28/2018 10:42 AM PDT Melly Caceres Sleep | | Disorders [place], [place] [id number] Report on | | Kait Min performed [...] sleeping.Neno Walker Jr., MD, | | FAASMMedical DirectorArkansas State Psychiatric Hospital Sleep Disorders [facility] | | [place], WAClinical Criminal Legal Assistant of MedicineIntermountain Medical Center | | [place], [place] | |Assistant Branch Operations Manager | |[facility] | |[facility] | |[place], [place] | |Clinical hotel operations manager | |[facility] | |[place], [place] | + + documented in this encounter Visit Diagnoses + + | Diagnosis | + + | Nocturnal hypoxia Hypoxemia | + + | Chronic obstructive pulmonary disease, unspecified COPD type (HCC) | + + documented in this encounter"
--- OUTSIDE RECORDS SUMMARY | ~2019-05-03 | XMS | Encounter Summary ---
Demographics + + + | Address | [address] | | | [place] [address] | + + + | Home Phone [...] | | | | | [place] [address] | | + + + + + Care Team Providers + +------+ + | Care Veterans' Counselor Name | Role | Phone | + +------+ + PCP | Unavailable | + +------+ + Encounter Details +--------+ + + + + | Date | Type | Department | Care Team | Description | +--------+ + + + + | 05/15/ | Results | | Other, Faculty | | | 2000 | Only | | [phone] | | +--------+ + + + + [...] certified | | | lab at [facility]. The patient will not be charged. Reviewed by Jana | | | Mariola, Ph.D. | | + + + + + + + + | Performing | Address | City/State/Zipcode | Phone Number | | Organization | | | | + + + + + | [facility] DEPARTMENT OF | [address] [place] [address] | [place] [address] | | | PATHOLOGY | [address] | | | + + + + + | [facility] DEPARTMENT OF | [address] | [place] [address] | | | PATHOLOGY | [address] | | | + + + + + documented in this encounter Visit Diagnoses Not on filedocumented in this encounter"
--- OUTSIDE RECORDS SUMMARY | ~2019-05-03 | XMS | Encounter Summary ---
Demographics + + + | Address | [address] | | | [place] [address] | + + + | Home Phone [...] | | | | | [place] [address] | | + + + + + Care Team Providers + +------+ + | Care Funeral Home Makeup Artist Name | Role | Phone | + +------+ + PCP | Unavailable | + +------+ + Encounter Details +--------+ + + + + | Date | Type | Department | Care Team | Description | +--------+ + + + + | 11/02/ | Respiratory | | Other, Faculty | | | 2006 | Therapy | | [phone] | | +--------+ + + + + [...] | | | Y | Lisa Wahl, BASIC COMBATANT SWIMMER | | | | + + + [...] HAYLEY BARNETT | [address] | [place], [place] | | | DIAGNOSTICS - | [address] | [address] | | | PULMONARY FUNCTION | | | | + + + + + documented in this encounter Visit Diagnoses Not on filedocumented in this encounter"
--- OUTSIDE RECORDS SUMMARY | ~2019-05-03 | XMS | Encounter Summary ---
Demographics + + + | Address | [address] | | | [place] [address] | + + + | Home Phone [...] | | | | | [place] [address] | | + + + + + | Robson Min | ECON | Unknown | | + + + + + | Isabella Whitehead | ECON | Unknown | | + + + + + Care Team Providers + +------+ + | Care Aquatics Group Fitness Instructor Name | Role | Phone | + +------+ + | Ora Slater | PCP | | + +------+ + Encounter Details +--------+ + + + + | Date | Type | Department | Care Team | Description | +--------+ + + + + | 08/19/ | Imaging | [facility] | Provider, | | | 2019 | Exam | MED CTR EXTERNAL | MD [address]ira [address] | | | | | IMAGING | [address] | | | | | [phone] | [place] [address] | | +--------+ + + + + [...] MICHELLE | | | | | | [address] | | | | | | | | +--------+---------+ + + + | 07/26/ | Office | Pulmonology | Navdeep Grande, | | | 2019 | Visit | | [address] | | | | | | [place] | | | | | | [address] | | | | | | | [...]
--- OUTSIDE RECORDS SUMMARY | ~2019-05-03 | XMS | Encounter Summary ---
Demographics + + + | Address | [address] | | | [place] [address] | + + + | Home Phone [...] | | | | | [place] [address] | | + + + + + | Robson Min | ECON | Unknown | | + + + + + | Isabella Whitehead | ECON | Unknown | | + + + + + Care Team Providers + +------+ + | Care Cap Cutter Name | Role | Phone | [...] Medicine | Nocturnal | Neno Thong | [place] [address] | | | Required | | hypoxia | MD S[address] | [place] | | | | | Chronic | [place] | [place], | | | | | obstructive | [facility] | [place] [address] | | | | | pulmonary | [place], [place] | Phone: | | | | | disease, | [address] | [phone] | | | | | unspecified | Phone: | Fax: | | | | | COPD type | [phone] | [phone] | | | | | (HCC) | Fax: | | | | | | Procedures | [phone] | | | | | | [place] [...] + + | 10/26/ | Hospital | [facility] | Neno Walker | Nocturnal hypoxia; | | 2019 - | Encounter | MED CTR SLEEP | MD Srinivas [address] [place] [address] | Chronic obstructive | | | | [address] [place] | [facility] | pulmonary disease, | | 10/27/ | | [place] | [place] [address] | unspecified COPD | | 2019 | | [address] | [phone] | type (HCC) | | | | [phone] | | | +--------+ + + + [...] MICHELLE | | | | | | [address] | | | | | | | | +--------+---------+ + + + | 07/26/ | Office | Pulmonology | Navdeep Grande, | | | 2019 | Visit | | [address] | | | | | | [place] | | | | | | [address] | | | | | | | [...] Melly Caceres Sleep | | | [place] [address] | | | Polysomnogram Report on Kait [...] [place] | | | Jr. Walker MD, [facility] SYSTEMMedical Director[facility] Sleep | | | Disorders [facility], | | | WAClinical Neon Technician of MedicineHighland Ridge Hospital | | | [place], [place] | | |In the course of [...] | | | |Neno Walker Jr., MD, [facility] | | |Cylinder Block Mechanic | | |[facility] | | |[facility] | | |[place] | | |Clinical machine sprayer | | |[facility] | | |[place], [place] | | + + + + + | Procedure Note | + + | Neno Walker Jr., MD - 10/28/2018 10:42 AM PDT Melly Caceres Sleep | | Disorders [place], [place] [id number] Report on | | Kait Min performed [...] sleeping.Neno Walker Jr., MD, | | FAASMMedical DirectorSaline Memorial Hospital Sleep Disorders [facility] | | [place], WAClinical Neon Technician of MedicineHighland Ridge Hospital | | [place], [place] | |Cylinder Block Mechanic | |[facility] | |[facility] | |[place], [place] | |Clinical machine sprayer | |[facility] | |[place], [place] | + + documented in this encounter Visit Diagnoses + + | Diagnosis | + + | Nocturnal hypoxia Hypoxemia | + + | Chronic obstructive pulmonary disease, unspecified COPD type (HCC) | + + documented in this encounter"
--- OUTSIDE RECORDS SUMMARY | ~2019-05-03 | XMS | Encounter Summary ---
Demographics + + + | Address | [address] | | | [place] [address] | + + + | Home Phone [...] | | | | | [place] [address] | | + + + + + | Robson Min | ECON | Unknown | | + + + + + | Isabella Whitehead | ECON | Unknown | | + + + + + Care Team Providers + +------+ + | Care Returned Goods Repairer Name | Role | Phone | [...] [address] | | | | | [place], | [place] | | | | | [place] [address] | [address] | | | | | [phone] | | | +--------+ + + + [...] MICHELLE | | | | | | [address] | | | | | | | | +--------+---------+ + + + | 07/26/ | Office | Pulmonology | Navdeep Grande, | | | 2019 | Visit | | [address] | | | | | | [place] | | | | | | [address] | | | | | | | | +--------+---------+ + + + documented as of this encounter Visit Diagnoses Not on filedocumented in this encounter"
--- OUTSIDE RECORDS SUMMARY | ~2019-05-03 | XMS | Encounter Summary ---
Demographics + + + | Address | [address] | | | [place] [address] | + + + | Home Phone [...] | | | | | [place] [address] | | + + + + + Care Team Providers + +------+ + | Care Geochemist Name | Role | Phone | + [...] | | | | | [address] [place], | | | | | | [place] [address] | | | | | | [phone] | | | | | | | [...] + + + | [facility] | [address] | [place] [address] | | | PATHOLOGY | [address] | | | + + + + + | [facility] DEPARTMENT OF | [address] | [place] [address] | | | PATHOLOGY | [address] [...] | 8.9 | 8.5 - 10.5 | [facility] | | | PLASMA | | [...] + + + + + | [facility] DEPARTMENT OF | [address] | [place] [address] | | | PATHOLOGY | [address] | | | + + + + + | [facility] DEPARTMENT OF | [address] | [place] [address] | | | PATHOLOGY | [address] | | | + + + + + documented in this encounter Visit Diagnoses Not on filedocumented in this encounter"
--- OUTSIDE RECORDS SUMMARY | ~2019-05-03 | XMS | Encounter Summary ---
Demographics + + + | Address | [address] | | | [place] [address] | + + + | Home Phone [...] | | | | | [place] [address] | | + + + + + | Robson Min | ECON | Unknown | | + + + + + | Isabella Whitehead | ECON | Unknown | | + + + + + Care Team Providers + +------+ + | Care Cotton Weigher Operator Name | Role | Phone | [...] [address] | | | | | [phone] | [place] [address] | | +--------+ + + + + [...] MICHELLE | | | | | | [address] | | | | | | | | +--------+---------+ + + + | 07/26/ | Office | Pulmonology | Navdeep Grande, | | | 2019 | Visit | | [address] | | | | | | [place] | | | | | | [id number] | | | | | | | [...]
--- OUTSIDE RECORDS SUMMARY | 2019-05-03 06:40 | XMS ---
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 E.D. VISIT COUNT ([address] [facility] 1 Jonathan Palmer TOTAL 8 NOTE: Visits indicate total known visits. ED/UCC VISIT TRACKING (12 MO.) 05/03/2019 06:39 [facility] [place] TYPE: Emergency COMPLAINT: - HEADACHE/NAUSEA 04/18/2019 11:30 [facility] TYPE: Emergency DIAGNOSES: - Non-ST elevation (NSTEMI) myocardial infarction - Chronic obstructive pulmonary disease w (acute) exacerbation - Chest pain, unspecified - Chest Pain 04/18/2019 07:01 [facility] [place] TYPE: Emergency COMPLAINT: - LOW BLOOD SUGAR, SOB DIAGNOSES: - Nicotine dependence, unspecified, uncomplicated - Chronic obstructive pulmonary disease, unspecified - Bipolar disorder, unspecified - Shortness of breath - Essential (primary) hypertension - Non-ST elevation (NSTEMI) myocardial infarction - Allergy status to oth drug/meds/biol subst status - Allergy status to other antibiotic agents status - 1 Type 2 diabetes mellitus without complications - Other termite renewal inspector (current) drug therapy - Hypothyroidism, unspecified - Other nonmedicinal substance allergy status - halfway (current) use of insulin 11/29/2018 16:35 [facility] [place] TYPE: Emergency COMPLAINT: - SOB DIAGNOSES: - Rheumatoid arthritis, unspecified - Local infection of the skin and subcutaneous tissue, unsp - Chronic obstructive pulmonary disease, unspecified - Nicotine dependence, unspecified, uncomplicated - Allergy status to oth drug/meds/biol subst status - Anxiety disorder, unspecified - 1 Type 2 diabetes mellitus without complications - halfway (current) use of insulin - Other termite renewal inspector (current) drug therapy - Other nonmedicinal substance [...] - Post-traumatic stress disorder, unspecified - Other termite renewal inspector (current) drug therapy - Migraine, unsp, not intractable, without status migrainosus - Other nonmedicinal substance allergy status - Essential (primary) hypertension - Chronic obstructive pulmonary disease, unspecified - Allergy status to other antibiotic agents status - halfway (current) use of insulin - Nicotine dependence, unspecified, uncomplicated 08/15/2018 08:28 [facility] TYPE: Emergency DIAGNOSES: - Other acute kidney failure - Acute respiratory failure with hypoxia - Altered - Pneumonia, unspecified organism - Altered Mental Status - Acute respiratory failure with hypercapnia - Metabolic encephalopathy 06/17/2018 05:30 [facility] TYPE: Emergency COMPLAINT: - VOMITING 06/14/2018 11:38 [facility] TYPE: Emergency COMPLAINT: - ALT MENTAL STATUS INPATIENT VISIT TRACKING (12 MO.) 04/18/2019 11:30 [facility] Alan [facility]ORE TYPE: Internal Medicine DIAGNOSES: - Chest pain, unspecified - Non-ST elevation (NSTEMI) myocardial infarction - Chronic obstructive pulmonary disease w (acute) exacerbation 08/15/2018 08:28 [facility] TYPE: Critical Care DIAGNOSES: - Pneumonia, [...] diabetic rtnop w/o macular edema - Other prison (current) drug therapy - Hypothyroidism, unspecified - Gastro-esophageal reflux disease without esophagitis - Bipolar disorder, unspecified - intermediate project manager (current) use of insulin - Nicotine dependence, cigarettes, uncomplicated - Anxiety disorder, unspecified 06/14/2018 16:[address] [facility] [place] TYPE: Medical Surgical COMPLAINT: - SEPSIS [...] diarrhea - Essential (primary) hypertension - Other prison (current) drug therapy - Post-traumatic stress disorder, unspecified - Hypothyroidism, unspecified - Gastro-esophageal reflux disease without esophagitis - Opioid dependence, uncomplicated - intermediate project manager (current) use of insulin - Metabolic encephalopathy - Old myocardial infarction - Bipolar disorder, unspecified - Bipolar disorder, unspecified - Anxiety disorder, unspecified - 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 - Dependence on supplemental oxygen - halfway (current) use of insulin - intermediate project manager (current) use of non-steroidal non-inflam (NSAID) - [...] - Gram-negative sepsis, unspecified Gram-nega - Other termite renewal inspector (current) drug therapy - Pneumonia due to other Gram-negative bacteria - halfway (current) use of non-steroidal non-inflam (NSAID) - Allergy status to oth drug/meds/biol subst status - Chr obstructive pulmon disease with (acute) lower resp infct - Old myocardial infarction - Hypothyroidism, unspecified [email or web address]
[2019-05-03] MEDS ORDERED: GLUCOPHAGE500 MG PO (06:51)
[2019-05-03] MEDS ORDERED: GEODON80 MG NG (06:53)
--- NOTE | 2019-05-03 19:28 | EKG ---
[facility] [address] [place] [address] Signed Normal sinus rhythm Left axis deviation Minimal voltage criteria for LVH, may be normal variant Abnormal ECG When compared with ECG of 18-APR-2019 09:08, No significant change was found Confirmed by SUKHJINDER KHAN MD ([id number]) on 05/03/2019 7:28:18 PM Electronically Signed By: SUKHJINDER KHAN MD 05/03/19 1928 PATIENT NAME: CARLINE ESCOBARN Electrocardiogram DATE OF : 72 PHYSICIAN: SUKHJINDER KHAN MD REPORT #: [id number] REPORT IS CONFIDENTIAL AND NOT TO BE RELEASED WITHOUT AUTHORIZATION
== END 2019-05-03 14:00 | disposition short-term general hospital (02) ==
LOC: ED 06:37
DX: K80.10 Calculus of gallbladder with chronic cholecystitis without obstruction (principal); M06.9 Rheumatoid arthritis, unspecified; I10 Essential (primary) hypertension; E11.9 Type 2 diabetes mellitus without complications; E03.9 Hypothyroidism, unspecified; J44.9 Chronic obstructive pulmonary disease, unspecified; F17.200 Nicotine dependence, unspecified, uncomplicated; Z99.81 Dependence on supplemental oxygen; Z88.1 Allergy status to other antibiotic agents; Z91.048 Other nonmedicinal substance allergy status; Z88.8 Allergy status to other drugs, medicaments and biological substances; Z79.899 Other long term (current) drug therapy; Z79.4 Long term (current) use of insulin
CPT/HCPCS: 71046; 76705; 80053; 81001; 83690; 84484; 85025; 93005; 93010; 96361; 99285-25; J2270; J2405; J2543; J7030; J7060

== ENCOUNTER 2019-09-02 06:36 | Emergency (ER) | payer OTHER ==
[~2019-09-02] VITALS: Ht 165.1 cm; Wt 101.6 kg
--- OUTSIDE RECORDS SUMMARY | ~2019-09-02 | XMS | Encounter Summary ---
Demographics + + + | Address | [address] | | | [place] [address] | + + + | Home Phone | | + + + | Preferred Language | Unknown | + + + | Marital Status | Single | + + + | Mandaen Affiliation | Unknown | + + + | Race | Unknown | + + + | Ethnic Group | Unknown | + + + Author + + + | Author | [facility] | | | and [place] | + + + | Organization | [facility] | | | [...] | | | | | [place] [address] | | + + + + + | Robson Min | ECON | Unknown | | + + + + + | Isabella Whitehead | ECON | Unknown | | + + + + + | Seven Neff | ECON | Unknown | | + + + + + Care Team Providers + +------+ + | Care Automotive Product Specialist Name | Role | Phone | + +------+ + | Bart Ba DO | PCP | | + +------+ + Encounter Details +--------+ + + + + | Date | Type | Department | Care Team | Description | +--------+ + + + + | 08/20/ | Imaging | [facility] | Provider, | | | 2018 | Exam | MED CTR EXTERNAL | MD [address] | | | | | IMAGING [address] | [address] | | | | | [address] | [place] [address] | | | | | [place] [address] | | | | | | [phone] | | | +--------+ + + + [...] Description | +--------+---------+ + + + | 09/27/ | Office | Pulmonology | Navdeep Grande, | | | 2019 | Visit | | MD [address] | | | | | | [place] | | | | | | [address] | | | | | | | | +--------+---------+ + + + | 11/05/ | Office | Neurology | Tariq, | | | 2019 | Visit | | [address] | | | | | [address] [place], | | | | | | [place] [address] | | | | | | [phone] | | | | | | | | +--------+---------+ + + + documented as of this encounter Procedures + +--------+ + + + | Procedure Name | Priori | Date/Time | Associated Diagnosis | Comments | | | ty | | | | + +--------+ + + + | CT ANGIOGRAM | Routin | 08/08/2017 | | Results for this | | PULMONARY | e | 1:10 PM | | procedure are in the | | | | PDT | | results section. | + +--------+ + + + documented in this encounter Results CT Angiogram Pulmonary (08/08/2017 1:10 PM PDT) + + | Specimen | + + | | + + + + + | Narrative | Performed At | + + + | External films for comparison only | [facility] | | | | | No results will be in the chart. | | + + + + +---------+ + + | Performing | Address | City/State/Zipcode | Phone Number | | Organization | | | | + +---------+ + + | [facility] | | | | + +---------+ + + documented in this encounter Visit Diagnoses Not on filedocumented in this encounter"
--- OUTSIDE RECORDS SUMMARY | ~2019-09-02 | XMS | Encounter Summary ---
Demographics + + + | Address | [address] | | | [place] [address] | + + + | Home Phone | | + + + | Preferred Language | Unknown | + + + | Marital Status | Single | + + + | Hindu Affiliation | Unknown | + + + | Race | Unknown | + + + | Ethnic Group | Unknown | + + + Author + + + | Author | [facility] | | | and [place] | + + + | Organization | [facility] | | | and [...] | | | | | [place] [address] | | + + + + + | Robson Min | ECON | Unknown | | + + + + + | Isabella Whitehead | ECON | Unknown | | + + + + + | Seven Neff | ECON | Unknown | | + + + + + Care Team Providers + +------+ + | Care Blade Aligner Name | Role | Phone | + +------+ + | Bart Ba DO | PCP | | + +------+ + Reason for Visit +--------+ + | Reason | Comments | +--------+ + | COPD | 1 mo follow up/PFT | +--------+ + Evaluate & Treat (Routine) +--------+--------+ + + + + | Status | Reason | Specialty | Diagnoses / | Referred By | Referred To | | | | | Procedures | Contact | Contact | +--------+--------+ + + + + | Closed | | Pulmonary | Diagnoses | Mejia | Harjinder, | | | | Disease / | COPD | Bart Bell DO | MD Navdeep | | | | Pulmonology | (chronic | [address] | [address] | | | | | obstructive | [address] | [place], | | | | | pulmonary | [place] | [place] [address] | | | | | disease) | 3[address]106 | Phone: | | | | | ([facility]) | DANIEL TERESA | [phone] | | | | | Procedures | [address] | Fax: | | | | | F/U MARITA CRUZ | Phone: | [phone] | | | | | DARRICK GRANDE | [phone] | | | | | | 11/19/17 | | | +--------+--------+ + + + + Encounter Details +--------+---------+ + + + | Date | Type | Department | Care Team | Description | +--------+---------+ + + + | 11/19/ | Office | [facility] | Navdeep Grande, | Hypoxemia (Primary | | 2018 | Visit | PULMONARY [address] | MD [address] | Dx); Tobacco use | | | | [place], | [place] | disorder; COPD, mild | | | | [place] [address] | [address] | ([facility]); Alveolar | | | | [phone] | | hypoventilation | +--------+---------+ + + + Social History + + [...] to Quit: No; Counseling Given: Yes | | Comments: 05/26/16: Currently using Chantix [...] + + documented as of this encounter Last Filed Vital Signs + + + + + | Vital Sign | Reading | Time Taken | Comments | + + + + + | Blood Pressure | 110/58 | 11/19/2017 11:22 AM | | | | | PDT | | + + + + + | Pulse | 89 | 11/19/2017 11:22 AM | | | | | PDT | | + + + + + | Temperature | - | - | | + + + + + | Respiratory Rate | - | - | | + + + + + | Oxygen Saturation | 96% | 11/19/2017 11:22 AM | | | | | PDT | | + + + + + | Inhaled Oxygen | - | - | | | Concentration | | | | + + + + + | Weight | 115 kg (253 lb 8.5 | 11/19/2017 11:22 AM | | | | oz) | PDT | | + + + + + | Height | 167.6 cm (5' 6") | 11/19/2017 11:22 AM | | | | | PDT | | + + + + + | Body Mass Index | 40.92 | 11/19/2017 11:22 AM | | | | | PDT | | + + + + + documented in this encounter Patient Instructions Patient Instructions Navdeep Grande MD - 11/19/2017 11:30 AM PDT Using Oxygen at Home Please change oxygen use to 2 LPM at night and 3 LPM with exertion. Your healthcare provider has prescribed oxygen to help make breathing easier for you. You w ill be shown how to use your oxygen unit. Below are some guidelines on using oxygen at home safely. Do all steps each time you use your oxygen unit. Note: Instructions will vary based on the type of oxygen device you use. Step 1. Check your supply Pressurize your oxygen tank (compressed oxygen tanks only). Other devices may simply be switched on. Make sure you follow the instructions provided by your healthcare provider or [employer]. Check the oxygen supply level on the tank to be sure you have enough. Your medical suppl y company will tell you when to call them to let them know that you need more oxygen. Or the y will deliver your oxygen on a regular schedule. If you have a humidifier bottle, check the water level. When it is at or below 1/2 full, refill it with sterile or distilled water. Step 2. Attach the tubing Attach the cannula tubing (long oxygen tubing) to your oxygen source as you have been sh own. Be sure the tubing is not bent or blocked. Step 3. Set your prescribed flow rate Set the oxygen to flow at the rate your healthcare provider has prescribed. This is ____ . Never change this rate unless told to by your healthcare provider. Step 4. Insert the cannula Insert the nasal cannula into your nose and breathe through your nose normally. If you re not sure whether oxygen is flowing, place the nasal cannula in a glass of wa ter. Bubbles mean that oxygen is flowing. Follow safety guidelines when using oxygen in your home Avoid open flames. This includes cigarettes, matches, candles, fireplaces, gas burners, pipes, or anything else that could start a fire. Don't smoke or be around others who are smoking. Keep oxygen tanks at least 5 feet from gas stoves, space heaters, electric or gas heater s, or any heat sources. Don't use lotions or creams that contain petroleum jelly. This substance can be flammabl e when mixed with pure oxygen. Turn oxygen off when you aren't using it. Store the oxygen cylinder upright in a secure, approved storage device. Make sure you know what to do in an emergency. Your emergency numbers should include 911 (or your area's emergency number), your healthcare provider, and your medical supply compan y. Always follow the instructions for safe use as recommended by your medical supply compan y. Not using oxygen safely at home can put you and your neighbors at higher risk for fires a nd blanco. Maintain your equipment Ask your medical supply company how often you should change your nasalcannula tubing, you r cannula, and your humidifier bottle, if you have one. Date Last Reviewed: 08/18/201519999622-5419 [employer]. [address] [place], [place] [address] [address]. All [facility] ts reserved. This information is not intended as a substitute for professional medical care. Always follow your healthcare professional's instructions. documented in this encounter Progress Notes Navdeep Grande MD - 11/19/2017 11:30 AM PDTFormatting of this note might be different f rom the original. Pulmonary Follow Up 11/19/2017 HPI Kait Min is a 47 y.o. female patient of Bart Ba, here today for follow up o f Gold Stage I COPD, recent respiratory failure and possible progressive hypoxemia. The last pulmonary clinic visit was on 10/18/17. Since their last appointment they feel like their breathing issues have been stable. The patient reports that since our last clinic appointment that she was treated with "antib iotics" by Dr. Ba for sinusitis. The patient is currently on a daily regimen of Advair twice daily for their COPD. They do feel like this medication regimen is/are controlling their symptoms. Currently she is using their short acting bronchodilator, ProAir, 3 times a month. Currently the patient is able to walk up to 1 mile at their own pace on level ground before developing dyspnea. They are not exercising regularly. Their typical exercise consists of m inimal walking. Kait are enrolled in cardiac/pulmonary rehabilitation. They have not comp leted pulmonary rehabilitation in the past. Kait does cough chronically and does produce mucous. S/p antibiotics for sinusitis treate d by Dr. Ba one month ago. The mucous is white in color. They have not had hemoptysis s jose elias our last appointment. She has been evaluated for nocturnal oxygen. They currently are using nocturnal oxygen. Hannah harmon is currently on 1 LPM at night while sleeping. They report fair compliance. They have not reported recent symptoms of nasal congestion, runny nose or post nasal drip. The patient have received this year's influenza vaccination. They are up to date with thei r Pneumovax and Prevnar 13. The patient continues to use Imuran for her rheumatoid arthritis. Kait states that her R A is currently well controlled. The patient also indicated that she has a distant history o f obstructive sleep apnea. Past Medical History Past Medical History: Diagnosis Date Abnormal chest CT Most likely postoperative decortication changes Acid reflux disease Bipolar 1 disorder (HCC) CHRONIC TENSION HEADACHE Classical migraine without mention of intractable migraine Diabetes mellitus, type 2 ([facility]) Empyema lung ([facility]) 2006 right GI bleeding Hypercholesterolemia Hypertension Hypothyroidism IBS (irritable bowel syndrome) Knee pain Lumbago Lymphedema Nausea and vomiting Nocturia Obesity Panic anxiety syndrome Pneumonia Pyoderma gangreosum-LE Reflux esophagitis Restless leg syndrome Urinary hesitancy Vitamin D deficiency Wrist pain Social History: She reports that she has been smoking Cigarettes. She started smoking about 34 years ago. She has a 6.00 pack-year smoking history. She has never used smokeless tobacco. She reports that she drinks alcohol. She reports that she does not use drugs. Allergies: Allergies Allergen Reactions Adhesive & Tape Other (See Comments) Skin sensitivity Azithromycin Hives Lamotrigine Medications: Current Outpatient Prescriptions: albuterol (PROAIR HFA) 90 mcg/puff inhaler, Inhale 2 puffs into the lungs every 4 hour s as needed for Shortness of Breath., Disp: 1 Inhaler, Rfl: 3 aspirin 81 MG tablet, Take 81 mg by mouth Daily., Disp: , Rfl: azaTHIOprine (AZASAN) 75 MG TABS, Take 75 mg by mouth 2 times daily., Disp: , Rfl: azaTHIOprine (IMURAN) 50 mg tablet, Take 1 tablet by mouth 2 times daily., Disp: , Rfl : busPIRone (BUSPAR) 5 mg tablet, Take 5 mg by mouth 2 times daily., Disp: , Rfl: cloNIDine (CATAPRES) 0.3 mg/24 hr, Place 1 patch onto the skin Once a week., Disp: , R fl: ergocalciferol (VITAMIN D-2) 50,000 units capsule, Take 50,000 Units by mouth Once a w [place]., Disp: , Rfl: fluticasone-salmeterol (ADVAIR DISKUS) 250-50 mcg/puff diskus inhaler, Inhale 1 puff i nto the lungs Twice Daily., Disp: 1 each, Rfl: 11 HYDROcodone-acetaminophen (NORCO) 7.5-325 mg per tablet, Take 1 tablet by mouth every 4 hours as needed., Disp: , Rfl: LANTUS SOLOSTAR 100 UNIT/ML injection (pen), Inject 20 Units under the skin nightly., Disp: , Rfl: levothyroxine (SYNTHROID, LEVOTHROID) 300 MCG tablet, Take 300 mcg by mouth Daily., Di sp: , Rfl: levothyroxine (SYNTHROID, LEVOTHROID) 50 mcg tablet, Take 100 mcg by mouth Daily. Take one tablet daily , Disp: , Rfl: LINZESS 290 MCG capsule, Take 290 mcg by mouth as needed. Take one capsule daily , Dis p: , Rfl: LORazepam (ATIVAN) 0.5 mg tablet, Take 0.5 mg by mouth Daily., Disp: , Rfl: LYRICA 75 MG capsule, Take one capsule three times daily, Disp: , Rfl: magnesium oxide (MAG-OX) 400 mg tablet, Take 1 tablet by mouth Daily., Disp: , Rfl: metFORMIN (GLUCOPHAGE) 500 mg tablet, Take 1,000 mg by mouth 2 times daily (with break fast & dinner)., Disp: , Rfl: omeprazole (PRILOSEC) 20 mg capsule, Take 1 capsule by mouth every morning (before jermaine akfast)., Disp: 90 capsule, Rfl: 3 ondansetron (ZOFRAN ODT) 4 mg disintegrating tablet, Take 1 tablet by mouth as needed. , Disp: , Rfl: promethazine (PHENERGAN) 25 mg tablet, Take 25 mg by mouth 3 times daily as needed., D isp: , Rfl: simvastatin (ZOCOR) 20 mg tablet, Take 20 mg by mouth nightly., Disp: , Rfl: sulfaSALAzine (AZULFIDINE) 500 MG EC tablet, Take 1,000 mg by mouth 2 times daily., Di sp: , Rfl: tiZANidine (ZANAFLEX) 4 mg tablet, Take 4 mg by mouth nightly., Disp: , Rfl: traZODone (DESYREL) 100 mg tablet, Take 300 mg by mouth nightly., Disp: , Rfl: venlafaxine (EFFEXOR) 75 MG tablet, Take 75 mg by mouth Daily., Disp: , Rfl: verapamil (CALAN SR) 240 mg SR tablet, Take 1 tablet by mouth Daily., Disp: , Rfl: ziprasidone (GEODON) 60 MG capsule, Take 60 mg by mouth Daily., Disp: , Rfl: ziprasidone (GEODON) 80 MG capsule, Take 80 mg by mouth nightly., Disp: , Rfl: Immunizations: Immunization History Administered Date(s) Administered INFLUENZA PF 18 Y OR >,TRIVALENT RECOMBINANT 02/03/2012, 02/17/2013, 01/17/2014 INFLUENZA PF QUAD(PED/ADOL/ADULT),PSKT or VIAL 02/15/2015, 02/17/2016 INFLUENZA QUADR W/PRES (PED/ADOL/ADULT) MULTIDOSE 01/27/2017 PNEUMOCOCCAL CONJUGATE 13-VALENT (PCV13) 04/24/2014 PNEUMOCOCCAL POLYSACCHARIDE 23-VALENT (PPSV23) 04/04/2009, 03/19/2013 Objective BP 110/58 | Pulse 89 | Ht 1.676 m (5' 6") | Wt 115 kg (253 lb 8.5 oz) | SpO2 96% | BMI 40.92 kg/m Physical Exam Constitutional: She is oriented to person, place, and time. She has a sickly appearance. HENT: Head: Normocephalic. Nose: No mucosal edema. Right sinus exhibits no frontal sinus tenderness. Left sinus exhibi ts no frontal sinus tenderness. Mouth/Throat: Oropharynx is clear and moist and mucous membranes are normal. Neck: Trachea normal. Neck supple. No JVD present. Cardiovascular: Normal rate, regular rhythm, S1 normal and S2 normal. No murmur heard. Pulmonary/Chest: No accessory muscle usage. No respiratory distress. She has decreased ericka th sounds in the right lower field and the left lower field. She has no wheezes. She has no rhonchi. She has no rales. Musculoskeletal: She exhibits edema (trace of pitting edema to the knees bilaterally). Lymphadenopathy: She has no cervical adenopathy. Neurological: She is alert and oriented to person, place, and time. Gait normal. Skin: Skin is warm and intact. No cyanosis. Nails show no clubbing. Psychiatric: Affect normal. Data: Chest CT(s) from 08/08/17 and were reviewed and interpreted in clinic with the patient. The Chest CT(s) was performed at [facility]. No evidence of pulmonary emboli. A smal l left upper lobe pulmonary nodule is noted. Bibasally groundglass changes along with [place] cliff abnormalities bilaterally. Walking oximetry performed 11/19/17 showed a resting O2 saturation of 91%. Patient desaturat ed to 84% with exertion. Oxygen at 3 L/m was needed to maintain saturation in the mid 90s.. Pulmonary function tests were performed on 11/19/17 and were reviewed with the patient today. They show forced vital capacity of 2.27, 62% of predicted with an FEV1/FVC of 83%. The to edgar lung capacity is 4.60, 86% of predicted with a residual volume of 2.29, 126% of predicte d. The uncorrected DLCO is 15.0, 53% of predicted. Nocturnal oximetry results from 11/11/17 and 10/27/17 show periods of O2 desaturation in the low to mid 80s and other apparent periods with an O2 saturation in the upper 80s to low 90s. Both of these studies were performed on supplemental oxygen at 1 L/m. Assessment 1. Hypoxemia evidence of both nocturnal and exertional oxygen desaturation is appreciate d. The patient also has a relatively recent history of respiratory failure thought to be se condary to a COPD exacerbation requiring hospitalization in July 2017. Ms. Min believes that she has a history of untreated sleep apnea (discovered by myself to day). Further evaluation to address the patient's nocturnal hypoxemia is warranted. She gooden s a split-night polysomnogram ordered in the near future. It is possible that the patient has a pulmonary process either related to treatment of her rheumatoid arthritis with Imuran or secondary to her underlying rheumatoid arthritis. Close medical follow-up is warranted. Travel is an issue and Ms. Min states that she has an up coming appointment with Dr. Ba. I would have a low threshold for repeating a CT scan of the chest. 2. COPD Gold stage I. Currently treated with Advair and as needed ProAir. Unfortunatel y the patient continues to smoke a pack of cigarettes a day. 3. Pulmonary infiltrates Pulmonary function tests from today show moderate restrictive c hanges on spirometry. The patient's FEV1/FVC is within normal limits. The diffusion capaci ty has fallen an apparent 28% and the forced vital capacity has decreased by 33% compared to values from 08/25/13. Other than diagnoses associated with the patient's rheumatoid arthriti s it is also possible that Ms. Min could have respiratory bronchiolitis associated interst itial lung disease. Total duration of the patient's clinic appointment was in excess of 30 minutes. Greater th an 50% time was spent in counseling related to recently appreciated pulmonary infiltrates an d persistent hypoxemia. Plan 1. Patient to increase her supplemental oxygen 2 L/m while sleeping and initiate supplemen edgar oxygen at 3 L/m with exertion. 2. Pulmonary clinic follow-up appointment after her split-night polysomnogram in the near future. 3. I've asked the patient to notify our office if progressive pulmonary symptoms were to d evelop. CC: Bart Ba, DO documented in this encounter Plan of Treatment +--------+---------+ + + + | Date | Type | Specialty | Care Team | Description | +--------+---------+ + + + | 09/27/ | Office | Pulmonology | Navdeep Grande, | | | 2019 | Visit | | MD Cely GORE | | | | | | [place] | | | | | | [id number] | | | | | | | | +--------+---------+ + + + | 11/05/ | Office | Neurology | Tariq, | | 2019 | Visit | | [address] | | | | | [address] [place], | | | | | | [place] [address] | | | | | | [phone] | | | | | | | | +--------+---------+ + + + + + +--------+ + + | Name | Type | Priori | Associated Diagnoses | Order Schedule | | | | ty | | | + + +--------+ + + | Oxygen Order | Respiratory | Routin | COPD, mild (HCC) | Expected: | | | Care | e | Alveolar | 11/19/2017, Expires: | | | | | hypoventilation | 11/19/2018 | | | | | Hypoxemia | | + + +--------+ + + documented as of this encounter Visit Diagnoses + + | Diagnosis | + + | Hypoxemia - Primary | + + | Tobacco use disorder | + + | COPD, mild (HCC) Chronic airway obstruction, not elsewhere classified | + + | Alveolar hypoventilation Other dyspnea and respiratory abnormality | + + documented in this encounter
--- OUTSIDE RECORDS SUMMARY | ~2019-09-02 | XMS | Encounter Summary ---
Demographics + + + | Address | [address] | | | [place] [address] | + + + | Home Phone | | + + + | Preferred Language | Unknown | + + + | Marital Status | Single | + + + | Episcopal Affiliation | Unknown | + + + | Race | Unknown | + + + | Ethnic Group | Unknown | + + + Author + + + | Author | [facility] | | | and [place] | + + + | Organization | [facility] | | [...] | | | | | [place] [address] | | + + + + + | Robson Min | ECON | Unknown | | + + + + + | Isabella Whitehead | ECON | Unknown | | + + + + + | Seven Neff | ECON | Unknown | | + + + + + Care Team Providers + +------+ + | Care Director Mortgage Name | Role | Phone | + +------+ + | Bart Ba DO | PCP | | + +------+ + Reason for Visit +---------+ + | Reason | Comments | +---------+ + | Results | gastric emptying study | +---------+ + Encounter Details +--------+ + + + + | Date | Type | Department | Care Team | Description | +--------+ + + + + | 10/02/ | Telephone | [facility] | Cecilio Amato MD | Results (gastric | | 2013 | | GASTROENTEROLOGY | [address] | emptying study) | | | | [address] [facility] | [place] | | | | | [address] [place] | [address] | | | | | [address] | [phone] | | | | | [phone] | | | +--------+ + + + [...] [place] | | | | | | [address] | | | | | | | | +--------+---------+ + + + | 11/05/ | Office | Neurology | Tariq, | | | 2019 | Visit | | [address] | | | | [address] [place], | | | | | | [place] [address] | | | | | | [phone] | | | | | | | | +--------+---------+ + + + documented as of this encounter Visit Diagnoses Not on filedocumented in this encounter"
--- OUTSIDE RECORDS SUMMARY | ~2019-09-02 | XMS | Encounter Summary ---
Demographics + + + | Address | [address] | | | [place] [address] | + + + | Home Phone | | + + + | Preferred Language | Unknown | + + + | Marital Status | Single | + + + | Rastafarian Affiliation | Unknown | + + + | Race | Unknown | + + + | Ethnic Group | Unknown | + + + Author + + + | Author | [facility] | | | and [place] | + + + | Organization | [facility] | | | [...] | | | | | [place] [address] | | + + + + + | Robson Min | ECON | Unknown | | + + + + + | Isabella Whitehead | ECON | Unknown | | + + + + + | Seven Neff | ECON | Unknown | | + + + + + Care Team Providers + +------+ + | Care [place]. Senator Name | Role | Phone | + +------+ + | Juanito Avery | PCP | | + +------+ + Encounter Details +--------+ + + + + | Date | Type | Department | Care Team | Description | +--------+ + + + + | 02/13/ | Orders Only | [facility] | Jimbo Samayoa MD | Intractable migraine | | 2019 | | HOSPITAL NEUROLOGY | [address] | with aura without | | | | CLINIC [address] | [place] | status migrainosus | | | | DR [place], | [address] | (Primary Dx) | | | | [place] [address] | | | | | | [phone] | | | +--------+ + + + + Social History + + + +--------+ + | Tobacco Use | Types | Packs/Day | Years | Date | | | | | Used | | + + + +--------+ + | Current Every Day | Cigarettes | 1 | 20 | Started: 07/25/1983 | | [...] [place] | | | | | | [address] | | | | | | | | +--------+---------+ + + + | 11/05/ | Office | Neurology | Tariq, | | | 2019 | Visit | | [address] | | | | | [address] [facility] [place], | | | | | | [place] [address] | | | | | | [phone] | | | | | | | | +--------+---------+ + + + documented as of this encounter Results BOTOX INJECTION PAIN CLINIC PROCEDURE (04/07/2019 3:45 PM PST) + + + | Narrative | Performed At | + + + | Jimbo Samayoa MD 04/07/2019 4:12 PM Kait Min | | | 04/07/2019 PROCEDURE: BOTOX INDICATION: Intractable migraine with | | | aura, non-status migrainous Kait stokes. 48 y.o.year-old | | | femalewho receive a Botox injection today. I used a total of 200 | | | units of Botox type A. Each of the Botox type A bottles, were | | | diluted with 4 cc of preservative-free normal saline. Each of the | | | following muscles were injected: Bilateral paraspinal C2-3, C 3 | | | | | | 4,C 4 | | | | | | 5, C5 | | | | | | 6, bilateral trapezius at 2 points, bilateral suprascapular muscles | | | at 2 points, bilateral sternocleidomastoid at 2 points, bilateral | | | scalene muscles, bilateral temporalis muscles at 2 points, bilateral | | | frontalis muscles, and glabella The patient tolerated the patient | | | the procedure well with no dizziness, chest pain, diaphoresis, or | | | shortness of breath. It is medically necessary that the patient | | | received of the both injection and not 3-4 months, to improve her | | | quality of life and activities of daily living. Thank you for | | | allowing me in participating in the care of your patient. | | | Sincerely, Jimbo Samayoa M.D. Neurologist [phone] | | | Electronically signed | | + + + documented in this encounter Visit Diagnoses + + | Diagnosis | + + | Intractable migraine with aura without status migrainosus - Primary Migraine with | | aura, with intractable migraine, so stated, without mention of status migrainosus | + + documented in this encounter"
--- OUTSIDE RECORDS SUMMARY | ~2019-09-02 | XMS | Encounter Summary ---
Demographics + + + | Address | [address] | | | [place] [address] | + + + | Home Phone | | + + + | Preferred Language | Unknown | + + + | Marital Status | Single | + + + | Baptist Affiliation | CHR | + + + | Race | White | + + + | Ethnic Group | Not or | + + + Author + + + | Organization | Unknown | + + + | Address | Unknown | + + + | Phone | Unavailable | + + + Support + + + + + | Name | Relationship | Address | Phone | + + + + + | Scot Johnson | ECON | [address] | | | | | [place] [address] | | + + + + + Care Team Providers + +------+ + | Care Calciner Feeder Name | Role | Phone | + +------+ + PCP | Unavailable | + +------+ + Encounter Details +--------+ + + + + | Date | Type | Department | Care Team | Description | +--------+ + + + + | 11/01/ | Respiratory | | Other, Faculty | | | 2006 | Therapy | | [phone] | | +--------+ + + + + Social History + +-------+ +--------+------+ | Tobacco Use | Types | Packs/Day | Years | Date | | | | | Used | | + +-------+ +--------+------+ | Never Assessed | | | | | + +-------+ +--------+------+ + + + | Sex Assigned at [...] as of this encounter Plan of Treatment Not on filedocumented as of this encounter Procedures + +--------+ + + + | Procedure Name | Priori | Date/Time | Associated Diagnosis | Comments | | | ty | | | | + +--------+ + + + | MEDICAL GAS/HUMIDITY | Routin | 11/01/2005 | | Results for this | | | e | 12:15 AM | | procedure are in the | | | | PDT | | results section. | + +--------+ + + + documented in this encounter Results MEDICAL GAS/HUMIDITY (11/01/2005 12:15 AM PDT) + + + + + + | Component | Value | Ref Range | Performed | Pathologist | | | | | At | Signature | + + + + + + | [facility] | NASAL CANNULA AT 2 | | | | | GAS/HUMIDIT | | | | | | Y | Lisa Wahl, CONSTRUCTION ENGINEERING MANAGER | | | | + + + + + + + + | Specimen | + + | | + + + + + | Narrative | Performed At | + + + | Ordered by an unspecified provider. | | + + + + + + + + | Performing | Address | City/State/Zipcode | Phone Number | | Organization | | | | + + + + + | [facility] | [address] | [place], [place] | | | DIAGNOSTICS - | [place] | [address] | | | PULMONARY FUNCTION | | | | + + + + + documented in this encounter Visit Diagnoses Not on filedocumented in this encounter"
--- OUTSIDE RECORDS SUMMARY | ~2019-09-02 | XMS | Encounter Summary ---
Demographics + + + | Address | [address] | | | [place] [address] | + + + | Home Phone | | + + + | Preferred Language | Unknown | + + + | Marital Status | Single | + + + | Gnosticism Affiliation | Unknown | + + + | Race | Unknown | + + + | Ethnic Group | Unknown | + + + Author + + + | Author | [facility] | | | and [place] | + + + | Organization | [facility] | | | [...] | | | | | [place] [address] | | + + + + + | Robson Min | ECON | Unknown | | + + + + + | Isabella Whitehead | ECON | Unknown | | + + + + + | Seven Neff | ECON | Unknown | | + + + + + Care Team Providers + +------+ + | Care Forest Technician Name | Role | Phone | + +------+ + PCP | Unavailable | + +------+ + Encounter Details +--------+ + + + + | Date | Type | Department | Care Team | Description | +--------+ + + + + | 02/21/ | Hospital | [facility] | Neno Walker | | | 2000 | Encounter | MED CTR SLEEP | MD Srinivas [address] | | | | | [address] [place] | [facility] | | | | | [place], [place] | [place] [address] | | | | | [address] | [phone] | | | | | [phone] | | | +--------+ + + + [...] [place] | | | | | | [address] | | | | | | | | +--------+---------+ + + + | 11/05/ | Office | Neurology | Tariq, | | | 2019 | Visit | | [address] Ven[address]as [address] | | | | | [address] [place], | | | | | | [place] [address] | | | | | | [phone] | | | | | | | | +--------+---------+ + + + documented as of this encounter Visit Diagnoses Not on filedocumented in this encounter"
--- OUTSIDE RECORDS SUMMARY | ~2019-09-02 | XMS | Encounter Summary ---
Demographics + + + | Address | [address] | | | [place] [address] | + + + | Home Phone | | + + + | Preferred Language | Unknown | + + + | Marital Status | Single | + + + | Church Affiliation | CHR | + + + | Race | White | + + + | Ethnic Group | Not or | + + + Author + + + | Author | [facility] | + + + | Organization | [facility] | + + + | Address | Unknown | + + + | Phone | Unavailable | + + + Support + + + + + | Name | Relationship | Address | Phone | + + + + + | Scot Johnson | ECON | [address] | | | | | [place] [address] | | + + + + + Care Team Providers + +------+ + | Care Special Class Welder Name | Role | Phone | + +------+ + PCP | Unavailable | + +------+ + Encounter Details +--------+ + + + + | Date | Type | Department | Care Team | Description | +--------+ + + + + | 05/15/ | Results | Rheumatology | Deyvi Lainez, | | | 1999 | Only | Faculty [address] | | | | | | [address] | | | | | | Mailcode: [id number] | | | | | | Outpatient Clinic | | | | | | [facility], | | | | | | [place] [address] | | | | | | [phone] | | | +--------+ + + + [...] | + +--------+ + + + | C-REACTIVE PROTEIN | Routin | 05/15/1999 | | Results for this | | | e | 12:26 PM | | procedure are in the | | | | PST | | results section. | + +--------+ + + + documented in this encounter Results C-REACTIVE PROTEIN (05/15/1999 12:26 PM PST) + +---------+ + + + | Component | Value | Ref Range | Performed | Pathologist | | | | | At | Signature | + +---------+ + + + | C-REACTIVE | 2.0 (H) | <0.9 mg/dl | | | | PROTEIN | | | | | + +---------+ + + + + + | Specimen | + + | | + + + + + + + | Performing | Address | City/State/Zipcode | Phone Number | | Organization | | | | + + + + + | [facility] | [address] | [place] [address] | | | LABORATORY | | | | + + + + + documented in this encounter Visit Diagnoses Not on filedocumented in this encounter"
--- OUTSIDE RECORDS SUMMARY | ~2019-09-02 | XMS | Encounter Summary ---
Demographics + + + | Address | [address] | | | [place] [address] | + + + | Home Phone | | + + + | Preferred Language | Unknown | + + + | Marital Status | Single | + + + | Adventism Affiliation | CHR | + + + [...] | | | | | [place] [address] | | + + + + + Care Team Providers + +------+ + | Care Construction Job Titles Name | Role | Phone | + [...] as of this encounter Discharge Summaries Interface, Food Service Aide In - 01/21/2006 6:22 AM PDT [id number] [place] [id number] Admission Date: 10/21/2005 Discharge Date: 11/03/2005 Staff Physician: Anibal Starr M.D. Principal Final Diagnosis: Right fibrothorax. Additional Diagnoses: 1. Psychogenic polydipsia. 2. Diabetes mellitus. 3. Rheumatoid arthritis. 4. Hypertension. Principal Procedure: Right thoracotomy and decortication. Additional Procedures: 1. Epidural catheter placement. 2. Endocrine consult. 3. Pain Service consult. 4. RT consult. 5. PT/OT consult. Reason for Admission: The patient was transferred to [facility] from an outside hospital for management of [...] 3 L of water a day. The manager psychology ultimately deemed this to be a psychogenic [...] within 1 week. Valerie Stone M.D. / [id number] / [id number] / [id number] / Electronically signed by Anibal Starr 01-20-2006 04:02:17 PM documented i n this encounter Plan of Treatment Not on filedocumented as of this encounter Visit Diagnoses Not on filedocumented in this encounter"
--- OUTSIDE RECORDS SUMMARY | ~2019-09-02 | XMS | Encounter Summary ---
Demographics + + + | Address | [address] | | | [place] [address] | + + + | Home Phone | | + + + | Preferred Language | Unknown | + + + | Marital Status | Single | + + + | Zoroastrianism Affiliation | Unknown | + + + | Race | Unknown | + + + | Ethnic Group | Unknown | + + + Author + + + | Author | [facility] | | | and [place] | + + + | Organization | [facility] | | | [...] | | | | | [place] [address] | | + + + + + | Robson Min | ECON | Unknown | | + + + + + | Isabella Whitehead | ECON | Unknown | | + + + + + | Seven eNff | ECON | Unknown | | + + + + + Care Team Providers + +------+ + | Care Physician Office Secretary Name | Role | Phone | + +------+ + | Juanito Avery | PCP | | + +------+ + Reason for Visit + + + | Reason | Comments | + + + | Procedure | Botox-head/neck | + + + Service/Procedure (Routine) + +--------+ + + + + | Status | Reason | Specialty | Diagnoses / | Referred By | Referred To | | | | | Procedures | Contact | Contact | + +--------+ + + + + | Authorized | | Neurology | Diagnoses | [place], | [place], | | | | | Migraine | Jimbo Box, | Jimbo Box MD | | | | | with aura, | [address] | | | | | intractable, | [address], | [place] | | | | | without | [place] | [place], [place] | | | | | status | [place], [place] | [address] Phone: | | | | | migrainosus | [address] | [phone] | | | | | Procedures | Phone: | Fax: | | | | | BOTOX | [phone] | [phone] | | | | | INJECTION | Fax: | | | | | | PAIN CLINIC | [phone] | | | | | | PROCEDURE | | | | | | | Botox | | | + +--------+ + + + + Encounter Details +--------+ + + + + | Date | Type | Department | Care Team | Description | +--------+ + + + + | 07/05/ | Procedure | [facility] | Jimbo Samayoa MD | Intractable migraine | | 2020 | visit | [facility] | [address] [place] | with aura without | | | | CLINIC [address] | [place] | status migrainosus | | | | [address] [place], | [address] | (Primary Dx) | | | | [place] [address] | | | | | | [phone] | | | +--------+ + + + [...] + + | Comments: 05/26/16: Currently using Chantix, unable to tolerate medi cation,, will f/u | | with PCP | + + + + +---------+ + [...] + + + | Blood Pressure | 130/78 | 07/06/2019 3:44 PM | | | | | PDT | | + + + + + | Pulse | 68 | 07/06/2019 3:44 PM | | | | | PDT | | + + + + + | Temperature | - | - | | + + + + + | Respiratory Rate | 20 | 07/06/2019 3:44 PM | | | | | PDT | | + + + + + | Oxygen Saturation | 94% | 07/06/2019 3:44 PM | | | | | PDT | | + + + + + | Inhaled Oxygen | - | - | | | Concentration | | | | + + + + + | Weight | 103.4 kg (228 lb) | 07/06/2019 3:44 PM | | | | | PDT | | + + + + + | Height | 165.1 cm (5' 5") | 07/06/2019 3:44 PM | | | | | PDT | | + + + + + | Body Mass Index | 37.94 | 07/06/2019 3:44 PM | | | | | PDT | | + + + + + documented in this encounter Functional Status + + + + | Functional Status | Response | Date of Assessment | + + + + | Are you deaf or do you have serious | No | 04/18/2019 | | difficulty hearing? | | | + + + + | Are you blind or do you have serious | No | 04/18/2019 | | difficulty seeing, even when wearing | | | | glasses? | | | + + + + | Do you have serious difficulty walking or | No | 04/18/2019 | | climbing stairs? (5 years old or older) | | | + + + + | Do you have difficulty dressing or bathing? | No | 04/18/2019 | | (5 years old or older) | | | + + + + | Because of a physical, mental, or emotional | No | 04/18/2019 | | condition, do you have difficulty doing | | | | errands alone such as visiting a doctor's | | | | office or shopping? [15 years old or | | | | older)] | | | + + + + + + + + | Cognitive Status | Response | Date of Assessment | + + + + | Because of a physical, mental, or emotional | No | 04/18/2019 | | condition, do you have serious difficulty | | | | concentrating, remembering, or making | | | | decisions? (5 years old or older) | | | + + + + documented as of this [...] [place] | | | | | | [address] | | | | | | | | +--------+---------+ + + + | 11/05/ | Office | Neurology | Tariq, | | | 2019 | Visit | | [address] | | | | | [address] [place], | | | | | | [place] [address] | | | | | | [phone] | | | | | | | | +--------+---------+ + + + documented as of this encounter Procedures + +--------+ + + + | Procedure Name | Priori | Date/Time | Associated Diagnosis | Comments | | | ty | | | | + +--------+ + + + | CA CHEMODERVATE | Routin | 07/06/2019 | Intractable | Results for this | | FACIAL/TRIGEM/CERV | e | 3:45 PM | migraine with aura | procedure are in the | | [facility] | | PDT | without status | results section. | | | | | migrainosus | | + +--------+ + + + documented in this encounter Visit Diagnoses + + | Diagnosis | + + | Intractable migraine with aura without status migrainosus - Primary Migraine with | | aura, with intractable migraine, so stated, without mention of status migrainosus | + + documented in this encounter Administered Medications + +--------+ +-------+------+ + | Medication Order | MAR | Action | Dose | Rate | Site | | | Action | Date | | | | + +--------+ +-------+------+ + | onabotulinumtoxinA (BOTOX) | Given | 07/06/19 | 200 | | Other | | injection 200 Units 200 Units, | | 20 4:08 | Units | | (Comment | | Intramuscular, ONCE, [facility] 07/06/19 | | PM PDT | | | ) | | at 1630, For 1 dose | | | | | | + +--------+ +-------+------+ + +---+---+ | | | +---+---+ documented in this encounter
--- OUTSIDE RECORDS SUMMARY | ~2019-09-02 | XMS | Encounter Summary ---
Demographics + + + | Address | [address] | | | [place] [address] | + + + | Home Phone | | + + + | Preferred Language | Unknown | + + + | Marital Status | Single | + + + | Christianity Affiliation | Unknown | + + + | Race | Unknown | + + + | Ethnic Group | Unknown | + + + Author + + + | Author | [facility] | | | and [place] | + + + | Organization | [facility] | | [...] | | | | | [place] [address] | | + + + + + | Robson Min | ECON | Unknown | | + + + + + | Isabella Whitehead | ECON | Unknown | | + + + + + | Seven Neff | ECON | Unknown | | + + + + + Care Team Providers + +------+ + | Care Wealth Management Consultant Name | Role | Phone | + +------+ + | Ora Slater PA | PCP | | + +------+ + Reason for Referral Evaluate & Treat (Routine) +--------+ + + + + + | Status | Reason | Specialty | Diagnoses / | Referred By | Referred To | | | | | Procedures | Contact | Contact | +--------+ + + + + + | Closed | Specialty | Sleep | Diagnoses | Aaron | [facility] | | | Services | Medicine | Nocturnal | Neno Benito | [place] [address] | | | Required | | hypoxia | MD Srin[address] | | | | | Chronic | [address] | [place], | | | | | obstructive | [facility] | [place] [address] | | | | | pulmonary | [place], [place] | Phone: | | | | | disease, | [address] | [phone] | | | | | unspecified | Phone: | Fax: | | | | | COPD type | [phone] | [phone] | | | | | (HCC) | Fax: | | | | | | Procedures | [phone] | | | | | | CO POLYSOM | | | | | | | 6/>YRS SLEEP | | | | | | | 4/> ADDL | | | | | | | WHITNEY ATTND | | | | | | | NPSG+TCO2 | | | | | | | w/ | | | | | | | Supplemental | | | | | | | oxygen +ABG | | | | | | | ( | | | | | | | 10/26/2018 @ | | | | | | | 7pm) | | | +--------+ + + + + + Reason for Visit + + + | Reason | Comments | + + + | CPAP Follow Up | | + + + Encounter Details +--------+---------+ + + + | Date | Type | Department | Care Team | Description | +--------+---------+ + + + | 10/12/ | Office | [facility] | Neno Walker | Nocturnal hypoxia | | 2019 | Visit | SLEEP DISORDER [address] | MD [address] | (Primary Dx); | | | | [address] [place] | [address] [place] | Chronic obstructive | | | | [place] [address] | [place] [address] | pulmonary disease, | | | | [phone] | [phone] | unspecified COPD | | | | | | type (HCC) | +--------+---------+ + + + Social History [...] + + + | Blood Pressure | 110/80 | 10/12/2018 9:28 AM | | | | | PDT | | + + + + + | Pulse | 95 | 10/12/2018 9:28 AM | | | | | PDT | | + + + + + | Temperature | - | - | | + + + + + | Respiratory Rate | 16 | 10/12/2018 9:28 AM | | | | | PDT | | + + + + + | Oxygen Saturation | 95% | 10/12/2018 9:28 AM | | | | | PDT | | + + + + + | Inhaled Oxygen | - | - | | | Concentration | | | | + + + + + | Weight | 98.8 kg (217 lb 13 | 10/12/2018 9:28 AM | | | | oz) | PDT | | + + + + + | Height | - | - | | + + + + + | Body Mass Index | 34.11 | 09/22/2018 10:48 AM | | | | | PDT | | + + + + + documented in this encounter Progress Notes Neno Walker Jr., MD - 10/12/2018 9:45 AM PDTThis patient was felt to have 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 She comes in for follow-up and the following studies are reviewed with her: Polysomnogram Report on Kait Min performed on September 21, 2018. Clinical Information: Kait Min is a 48 y.o. female who underwent diagnostic noctu rnal polysomnography on September 21, [address] Denis Grande because of persistent nocturnal oxygen desaturation in a patient who in the past has had mild obstructive sleep a pnea and severe chronic lung disease.. Technical Information: Please see technical data which is attached. The patient is on oxyg en. The current study is performed on oxygen 2 L/min. Definitions (The AASM Manual for the Scoring of Sleep and Associated Events, Version 2.5; 2 018): Apnea: There is a drop in the peak signal excursion by 90% or greater of pre-viviana nt baseline using an oronasal thermal sensor (diagnostic study), PAP device flow (titration study), or an alternative apnea sensor (diagnostic study); the duration of the 90% or greate r drop in sensor signal is 10 seconds or longer. Obstructive Apnea: Event associated with continued or increased inspi ratory effort throughout the entire period of absent airflow. Central Apnea: Event associated with absent inspiratory effort throug hout the entire period of absent airflow. Mixed Apnea: Event associated with absent inspiratory effort in the i nitial portion of the event followed by resumption of inspiratory effort during the second p ortion of the event. Hypopnea: The peak signal excursions drop by greater than or equal to 30% of pre -event baseline using a recommended or alternative airflow sensor and the duration of the >= 30% drop in signal excursion is greater than or equal to 10 seconds and there is a greater than or equal to a 4% oxygen desaturation from pre-event baseline. Respiratory Event Related Arousal: A sequence of breaths lasting 10 seconds or l onger characterized by increasing respiratory effort or by flattening of the inspiratory por tion of the nasal pressure (diagnostic study) or PAP device flow (titration study) waveform leading to arousal from sleep when the sequence of breaths does not meet criteria for an parking meter installer ea or hypopnea. Sleep Architecture: Lights out was recorded at 1957 hundred hours on September 21, 2018 and ligh ts on was recorded at 0705 hundred hours on September 22, 2018. The latency to sleep onset was ángela rt at 0 minutes. The patient slept for 591.5 minutes out of 668 minutes of study time result ing an a sleep efficiency that was normal at 88.5 %. The amount of N1 sleep was normal at 0. 3 % of the Total Sleep Time; the amount of N2 sleep was normal at 48 % of the Total Sleep Ti me; the amount of N3 sleep was 34.3 % of the Total Sleep Time; the amount of REM sleep was n ormal at 17.3 % of the Total Sleep Time and the latency to REM sleep was normal at 111.5 min utes. No parasomnias were noted. Sleep in the following positions was recorded: left lateral decubitus 94.6%, right lateral decubitus 5.2%, supine 0.2%, prone 0%. Sleep was minimally fragmented; the Arousal Index was 11.4. The patient reported this to be a usual night's sleep. Cardiopulmonary Monitoring: The heart rate averaged in the 70s beats per minute. Mild to m oderate rate variability was noted. The rhythm was sinus. In the course of the evening there were 4 obstructive apneas, 0 mixed apneas, 0 central parking meter installer eas, 22 hypopneas, and 12 Respiratory Effort Related Arousals (RERA's). The Respiratory Dist urbance Index (RDI) was normal at 3.9; the Apnea-Hypopnea Index (AHI) was normal at 2.6; the Apnea Index (AI) was 0.4. The respiratory events were mildly sleep stage dependent. The ev ents were more frequently seen in REM sleep (REM related AHI 5.9, non-REM related AHI 2.0). The respiratory events occasioned minimal sleep fragmentation; the Respiratory Arousal Inde x was 2.2. The kimmy oxygen saturation was 81% and the patient spent 105.1 minutes with an oxygen satu ration of less than or equal to 88%. ETCO2 was elevated (50 to 54 mmHg for 108 minutes, 55 to 59 mmHg for 8 minutes). Arterial blood gases done at 0051 hours demonstrated a PO2 of 82, pH 7.316, PCO2 56.8. Snoring was noted throughout the evening. Limb Movement Monitoring: There were 82 Periodic Limb Movements (PLMS Index of 8.3) of whic h 1 were associated with arousals; the PLMS Arousal Index was normal at 0.1. Miscellaneous: The patient did request at 3 AM and requested to be allowed to go outside to smoke a cigarette. She requested a second smoking break at 5 AM. Interpretation: This polysomnogram is normal secondary to: Significant oxygen desaturation is noted in spite of oxygen 2 L/min. Carbon dioxide retent ion is also documented with end-tidal CO2, transcutaneous CO2, and arterial blood gases duri ng sleep. Significant (AHI greater than 5) sleep apnea does not appear to be present. Nocturnal oxygen desaturation and CO2 elevation is suspected primarily secondary to chronic obstructive pulmonary disease. Suggestions: 1. The principles of sleep hygiene should be reviewed with the patient. 2. Oxygen therapy should be increased to obtain nocturnal pulse oximetry of greater than 8 8%. 3. Pulmonary function studies as well as daytime arterial blood gases on the patient's usu al FiO2 be performed to see if she qualifies (Medicare) for bilevel positive airway pressure therapy to assist with her COPD. PULMONARY FUNCTION TESTING SPIROMETRY: The FVC was 2.20 L or 60 % of predicted. The FEV1 was 2.02 L or 68 % of predict ed. FEV1/FVC ratio was 92 %. LUNG VOLUMES: The total lung capacity was 4.78 L or 89 % of predicted. The residual volume was 2.19 L or 120 % of predicted. RV/TLC ratio was 135 % of predicted. DIFFUSION CAPACITY: The diffusion capacity was 15.5 mL/mmHg per minute or 56 % of predicted . Walking oximetry: The patient walked approximately 800 feet over 4 minutes. The resting O2 saturation on room air was 96%. With ambulation O2 saturation fell to a kimmy of 89%. Hea rt rate peaked at 106 bpm. Supplemental oxygen was not initiated. 6-minute walk distance: 183 m Arterial blood gas: On supplemental oxygen at 1 L/min. pH was 7.42, PCO2 40.9 and the PO2 was 146. IMPRESSION: Spirometry is consistent with moderate restrictive physiology. Lung volume test ing is consistent with gas trapping physiology. Diffusion capacity is moderately reduced and is not corrected for measured hemoglobin. No significant oxygen desaturation was noted wit h exertion. The patient's arterial blood gas does not suggest significant hypoxemia or hype rcapnia. Compared to pulmonary function test performed 11/19/2017 the patient's forced vital capacity has decreased 3% the total lung capacity has increased 4% and the uncorrected DLCO has incre ased 3%. These findings are consistent with overall stability. Previously documented exert ional hypoxemia appears to have resolved. Test performed: 09/22/2018 Electronically signed by: Navdeep Grande MD 09/22/2018 14:54 [facility] BP 110/80 | Pulse 95 | Resp 16 | Wt 98.8 kg (217 lb 13 oz) | SpO2 95% | BMI 34.11 kg/m A: COPD and nocturnal oxygen desaturation: There really is no evidence of clinically signif icant obstructive sleep apnea. I think her nocturnal oxygen desaturation is entirely second trisha to chronic obstructive pulmonary disease. Because she does not have elevated resting PC O2 levels on supplemental oxygen she does not qualify for BiPAP assist at night for her COPD . Rather treatment for nocturnal oxygen desaturation is cases with oxygen supplementation. Have discussed this with her. She is trying to stop smoking. P: PSG guided oxygen titration in the near future with f/u thereafter. Today, 15 minutes was spent face to face with the patient; the majority of time was spent c ounseling regarding nocturnal oxygen desaturation. documented in th is encounter Plan of Treatment +--------+---------+ + + + | Date | Type | Specialty | Care Team | Description | +--------+---------+ + + + | 09/27/ | Office | Pulmonology | Navdeep Grande, | | | 2019 | Visit | | MD Cely GORE | | | | | | [place] | | | | | | [id number] | | | | | | | | +--------+---------+ + + + | 11/05/ | Office | Neurology | Tariq, | | | 2019 | Visit | | Theo, GRANULATOR TENDER [address] | | | | | [address] [facility], | | | | | | [place] [address] | | | | | | [phone] | | | | | | | | +--------+---------+ + + + + + +--------+ + + | Name | Type | Priori | Associated Diagnoses | Order Schedule | | | | ty | | | + + +--------+ + + | * [facility] - | Outpatient | Routin | Nocturnal hypoxia | Ordered: 10/12/2018 | | AMB Referral | Referral | e | Chronic obstructive | | | | | | pulmonary disease, | | | | | | unspecified COPD | | | | | | type (HCC) | | + + +--------+ + + documented as of this encounter Visit Diagnoses + + | Diagnosis | + + | Nocturnal hypoxia - Primary Hypoxemia | + + | Chronic obstructive pulmonary disease, unspecified COPD type (HCC) | + + documented in this encounter"
--- OUTSIDE RECORDS SUMMARY | ~2019-09-02 | XMS | Encounter Summary ---
Demographics + + + | Address | [address] | | | [place] [address] | + + + | Home Phone | | + + + | Preferred Language | Unknown | + + + | Marital Status | Single | + + + | Anabaptist Affiliation | Unknown | + + + | Race | Unknown | + + + | Ethnic Group | Unknown | + + + Author + + + | Author | [facility] | | | and [place] | + + + | Organization | [facility] [...] | | | | | [place] [address] | | + + + + + | Robson Min | ECON | Unknown | | + + + + + | Isabella Whitehead | ECON | Unknown | | + + + + + | Seven Neff | ECON | Unknown | | + + + + + Care Team Providers + +------+ + | Care Fuel Oil Truck Driver Name | Role | Phone | + [...] (Primary Dx) | | | | [place] [address] | | | | | | [phone] | | | +--------+ + + + [...] [place] | | | | | | [address] | | | | | | | | +--------+---------+ + + + | 11/05/ | Office | Neurology | Tariq, | | | 2019 | Visit | | ANGELA [address] | | | | | | [address] [facility] [place], | | | | | | [place] [address] | | | | | | [phone] | | | | | | | [...] | | Sincerely, Jimbo Samayoa M.D. Neurologist [phone] | | | Electronically signed | | + + + documented in this encounter Visit Diagnoses + + | Diagnosis | + + | Intractable migraine with aura without status migrainosus - Primary Migraine with | | aura, with intractable migraine, so stated, without mention of status migrainosus | + + documented in this encounter"
--- OUTSIDE RECORDS SUMMARY | ~2019-09-02 | XMS | Encounter Summary ---
Demographics + + + | Address | [address] | | | [place] [address] | + + + | Home Phone | | + + + | Preferred Language | Unknown | + + + | Marital Status | Single | + + + | Adventist Affiliation | Unknown | + + + | Race | Unknown | + + + | Ethnic Group | Unknown | + + + Author + + + | Author | [facility] | | | and [place] | + + + | Organization | [facility] | | | and [...] | | | | | [place] [address] | | + + + + + | Robson Min | ECON | Unknown | | + + + + + | Isabella Whitehead | ECON | Unknown | | + + + + + | Seven Neff | ECON | Unknown | | + + + + + Care Team Providers + +------+ + | Care Account Services Manager Name | Role | Phone | + +------+ + PCP | Unavailable | + +------+ + Encounter Details +--------+ + + + + | Date | Type | Department | Care Team | Description | +--------+ + + + + | 12/13/ | Hospital | [facility] | Navdeep Grande, | | | 2011 | Encounter | MED CTR XRAY [address] | | | | | [place] | [place] | | | | | [place] [address] | [address] | | | | | [phone] | | | +--------+ + + + [...] + + + +---------+ + + | ALPRAZolam (XANAX) | Take 0.25 mg by | | 0 | 09/10/19 | | | 0.25 mg tablet | mouth 3 times daily | | | 12 | 2 | | | as needed. | | | | | + + + +---------+ + + | azaTHIOprine | Take 75 mg by mouth | | 0 | 09/22/19 | | | (AZASAN) 75 MG TABS | 2 times daily. | | | 12 | 8 | + + + +---------+ + + | azaTHIOprine | Take two in morning | | 0 | 09/22/19 | | | (AZASAN) 75 MG TABS | and two at night. | | | 12 | 2 | + + + +---------+ + + | | One tablet by mouth | | 0 | 10/08/19 | | | [id number]-nxifksx-s | every 6 hours as | | [...] + + + +---------+ + + | promethazine | Place 50 mg rectally | | 0 | 09/10/19 | | | (PROMETHEGAN) 50 mg | as needed. | | | 12 | 2 | | suppository | | | | | | + [...] + + + +---------+ + + | sucralfate | Take 1 g by mouth 4 | | 0 | 09/10/19 | | | (CARAFATE) 1 g | times daily. | | | 12 | 2 | | tablet | | | | [...] + +---------+ + + | ziprasidone | Two cap by mouth | | 0 | 09/22/19 | | | (GEODON) 60 MG | daily at bedtime | | | 12 | 2 | | capsule | | | | [...] [place] | | | | | | [address] | | | | | | | | +--------+---------+ + + + | 11/05/ | Office | Neurology | Tariq, | | | 2019 | Visit | | [address] | | | | | | [address] [facility], | | | | | | [place] [address] | | | | | | [phone] | | | | | | | | +--------+---------+ + + + documented as of this encounter Procedures + +--------+ + + + | Procedure Name | Priori | Date/Time | Associated Diagnosis | Comments | | | ty | | | | + +--------+ + + + | CT CHEST WO CONTRAST | | 12/14/2011 | | Results for this | | | | 10:25 AM | | procedure are in the | | | | PDT | | results section. | + +--------+ + + + documented in this encounter Results CT Chest wo Contrast (12/14/2011 10:25 AM PDT) + + | Specimen | + + | | + + + + + | Narrative | Performed At | + + + | [facility] Diagnostic Imaging Department | [facility] | | [address] | [facility] | | NONCONTRAST CT CHEST | DIAG IMG | | CLINICAL HISTORY: FOLLOW UP CAVITARY LESIONS RIGHT LUNG. | | | TECHNIQUE: Axial images are obtained from the thoracic inlet through | | | upper abdomen without the use of contrast. COMPARISON: August | | | 2011 from [place], [place]. October 2005 from [facility] | | | [facility]. FINDINGS: Thick-walled cavitary lesions | | | are present in the anterior and lateral aspects of the right middle | | | lobe and to a lesser extent at the posterior right lung base and | | | right costophrenic sulcus region. The area in the posteromedial | | | right lung base is irregular and thick-walled with some mural | | | nodularity. Strand-like scarring extends into the right lower lobe. | | | Right lateral basilar lesions are less prominent. The lateral | | | right middle lobe is actually characterized more by thick linear | | | fibrotic change but cavitary airspace does run parallel to the | | | pleural surface. More extensive strand-like density extends to the | | | infrahilar region and some traction bronchiectasis is present. | | | Fibrotic changes are also present along the medial and anterior | | | aspects of the right middle and to a lesser extent upper lobe. All | | | of these changes are entirely stable from the August 2011 exam. | | | Review of the 2005 study shows that the patient had an extensive | | | empyema treated by large bore drainage in this region. In the | | | anterior left apex, a 6 mm round nodule is present, unchanged from | | | prior. Linear scarring extends from the left hilar region | | | posteriorly to the left pleural surface where a flat 1.9 cm pleural | | | plaque is seen. This measures approximately 6 mm in thickness. | | | It is also unchanged from the prior exam. No new or additional | | | areas of pulmonary nodularity or mass are seen. The lungs overall | | | show a somewhat emphysematous architecture and the scattered areas of | | | ground-glass opacification in the left upper lobe on the prior exam | | | have almost completely resolved. Mild bronchiectasis is present on | | | the left as well. There is no effusion. Sensitivity for | | | mediastinal adenopathy would be reduced on this noncontrast scan. | | | Small lymph nodes are questioned along the trachea, but no | | | pathologic-sized mediastinal adenopathy is seen. Main pulmonary | | | artery is prominent at 3.5 cm, indicating underlying pulmonary | | | arterial hypertension. No abnormalities are seen in the thoracic | | | inlet. Nonpathologic-appearing axillary adenopathy is seen. No | | | upper abdominal abnormalities are noted. There are no bony | | | destructive lesions. IMPRESSION: 1. STABLE | | | FIBROTIC/CAVITARY SUBPLEURAL CHANGES OF THE RIGHT HEMITHORAX. THIS | | | IS AT THE SAME LOCATION WHERE PATIENT WAS TREATED FOR EMPYEMA IN | | | 2005. NO ACTIVE INFECTIOUS CHANGES ARE SEEN. 2. STABLE 7 | | | MM LEFT APICAL NODULE AND LEFT POSTERIOR PLEURAL THICKENING, MUCH | | | LESS PROMINENT THAN THE RIGHT-SIDED CHANGES. 3. 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 NO CURRENT, ACTIVE | | | AIRSPACE PROCESS IS SUGGESTED. Dictated Date/Time: 12/14/2011 | | | 16:53 Transcribed Date/Time: 12/14/2011 17:08 Structural Biologist: | | | <Electronically Signed by Ace Avery MD> 12/14/11 | | | 1754 | | + + + + + | Procedure Note | + + | Demario, Rad Conversion - 05/26/2013 5:55 PM [facility] | | Diagnostic Imaging Department | | [address] [facility] | | | | | | | | NONCONTRAST CT CHEST | | | | CLINICAL HISTORY: FOLLOW UP CAVITARY LESIONS RIGHT LUNG. | | | | TECHNIQUE: Axial images are obtained from the thoracic inlet through upper | | abdomen without the use of contrast. | | | | COMPARISON: August 2011 from [place], [place]. October 2005 from [facility]. | | | | FINDINGS: Thick-walled cavitary lesions are present in the anterior and | | lateral aspects of the right middle lobe and to a lesser extent at the | | posterior right lung base and right costophrenic sulcus region. The area in | | the posteromedial right lung base is irregular and thick-walled with some mural | | nodularity. Strand-like scarring extends into the right lower lobe. Right | | lateral basilar lesions are less prominent. The lateral right middle lobe is | | actually characterized more by thick linear fibrotic change but cavitary | | airspace does run parallel to the pleural surface. More extensive strand-like | | density extends to the infrahilar region and some traction bronchiectasis is | | present. Fibrotic changes are also present along the medial and anterior | | aspects of the right middle and to a lesser extent upper lobe. All of these | | changes are entirely stable from the August 2011 exam. Review of the 2005 study | | shows that the patient had an extensive empyema treated by large bore drainage | | in this region. | | | | In the anterior left apex, a 6 mm round nodule is present, unchanged from | | prior. Linear scarring extends from the left hilar region posteriorly to the | | left pleural surface where a flat 1.9 cm pleural plaque is seen. This measures | | approximately 6 mm in thickness. It is also unchanged from the prior exam. No | | new or additional areas of pulmonary nodularity or mass are seen. The lungs | | overall show a somewhat emphysematous architecture and the scattered areas of | | ground-glass opacification in the left upper lobe on the prior exam have almost | | completely resolved. Mild bronchiectasis is present on the left as well. | | There is no effusion. Sensitivity for mediastinal adenopathy would be reduced | | on this noncontrast scan. Small lymph nodes are questioned along the trachea, | | but no pathologic-sized mediastinal adenopathy is seen. Main pulmonary artery | | is prominent at 3.5 cm, indicating underlying pulmonary arterial hypertension. | | No abnormalities are seen in the thoracic inlet. Nonpathologic-appearing | | axillary adenopathy is seen. No upper abdominal abnormalities are noted. There | | are no bony destructive lesions. | | | | IMPRESSION: | | 1. STABLE FIBROTIC/CAVITARY SUBPLEURAL CHANGES OF THE RIGHT HEMITHORAX. THIS | | IS AT THE SAME LOCATION WHERE PATIENT WAS TREATED FOR EMPYEMA IN 2005. NO | | ACTIVE INFECTIOUS CHANGES ARE SEEN. | | | | 2. STABLE 7 MM LEFT APICAL NODULE AND LEFT POSTERIOR PLEURAL THICKENING, MUCH | | LESS PROMINENT THAN THE RIGHT-SIDED CHANGES. | | | | 3. 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 NO CURRENT, | | ACTIVE AIRSPACE PROCESS IS SUGGESTED. | | | | Dictated Date/Time: 12/14/2011 16:53 | | Transcribed Date/Time: 12/14/2011 17:08 | | Structural Biologist: | | <Electronically Signed by Ace Avery MD> 12/14/11 1754 | + + + +---------+ + + | Performing | Address | City/State/Zipcode | Phone Number | | Organization | | | | + +---------+ + + | [place] | | | | | [facility] | | | | + +---------+ + + documented in this encounter Visit Diagnoses Not on filedocumented in this encounter"
--- OUTSIDE RECORDS SUMMARY | ~2019-09-02 | XMS | Encounter Summary ---
Demographics + + + | Address | [address] | | | [place] [address] | + + + | Home Phone | | + + + | Preferred Language | Unknown | + + + | Marital Status | Single | + + + | Catholic Affiliation | CHR | + + + [...] | | | | | [place] [address] | | + + + + + Care Team Providers + +------+ + | Care Musical Instrument Maker Name | Role | Phone | + +------+ + PCP | Unavailable | + +------+ + Encounter Details +--------+ + + + + | Date | Type | Department | Care Team | Description | +--------+ + + + + | 10/22/ | Respiratory | | Other, Faculty | | | 2006 | Therapy | | [phone] | | +--------+ + + + + [...] + | MEDICAL GAS/HUMIDITY | Routin | 10/22/2005 | | Results for this | | | e | 3:29 PM | | procedure are in the | | | | PDT | | results section. | + +--------+ + + + documented in this encounter Results MEDICAL GAS/HUMIDITY (10/22/2005 3:29 PM PDT) + + + + + + | Component | Value | Ref Range | Performed | Pathologist | | | | | At | Signature | + + + + + + | [facility] | NASAL CANNULA AT 3 | | | | | GAS/HUMIDIT | | | | | | Y | Tyree Barriga RCP | | | | + + [...] [facility] | [address] | [place], [place] | | | DIAGNOSTICS - | [place] | [address] | | | PULMONARY FUNCTION | | | | + + + + + documented in this encounter Visit Diagnoses Not on filedocumented in this encounter"
--- OUTSIDE RECORDS SUMMARY | ~2019-09-02 | XMS | Encounter Summary ---
Demographics + + + | Address | [address] | | | [place] [address] | + + + | Home Phone | | + + + | Preferred Language | Unknown | + + + | Marital Status | Single | + + + | Methodist Affiliation | Unknown | + + + | Race | Unknown | + + + | Ethnic Group | Unknown | + + + Author + + + | Author | [facility] | | | and [place] | + + + | Organization | [facility] | | | [...] | | | | | [place] [address] | | + + + + + | Robson Min | ECON | Unknown | | + + + + + | Isabella Whitehead | ECON | Unknown | | + + + + + | Seven Neff | ECON | Unknown | | + + + + + Care Team Providers + +------+ + | Care Driver'S Education Instructor Name | Role | Phone | + [...] | Abnormal | MD Navdeep | [address] | | | | | chest CT | [address] | [place], | | | | | Procedures | [address] | [place] [address] | | | | | CT Chest wo | [place], | Phone: | | | | | Contrast | [place] [address] | [phone] | | | | | | Phone: | Fax: | | | | | | [phone] | [phone] | | | | | | Fax: | | | | | | | [phone] | | +--------+--------+ + + + + Reason for Visit +--------+ + | Reason | Comments | +--------+ + | COPD | | +--------+ + Encounter Details +--------+---------+ + + + | Date | Type | Department | Care Team | Description | +--------+---------+ + + + | 09/06/ | Office | [facility] | Navdeep Grande, | Abnormal chest CT | | 2013 | Visit | PULMONARY [address] | MD [address] | (Primary Dx); | | | | [place], | [place], [place] | Chronic bronchitis; | | | | [place] [address] | [address] | Other nonspecific | | | | [phone] | | abnormal finding of | | [...] Date Wrist pain Diabetes mellitus, type 2 ([facility]) Vitamin D deficiency Hypercholesterolemia Hypothyroidism Panic anxiety syndrome IBS (irritable bowel syndrome) Restless leg syndrome Urinary hesitancy Lumbago Nocturia Pyoderma gangreosum-LE Bipolar 1 disorder ([facility]) Hypertension Lymphedema Nausea and vomiting Reflux esophagitis GI bleeding Empyema lung ([facility]) 2006 right Knee pain CHRONIC TENSION HEADACHE Classical [...] 4 times daily., Disp: , Rfl: ; mkgyycxfas-ruardwe-jutqnpdx (BUTALBITA L COMPOUND/ASA) per tablet, One tablet [...] of supplemental oxygen with exertion. Ms. Ap e is interested in discontinuing supplemental oxygen with [...] Seasonal influenza vaccination January 2014. CC: Bart Ba documented in this encounter Plan of Treatment +--------+---------+ + + + | Date | Type | Specialty | Care Team | Description | +--------+---------+ + + + | 09/27/ | Office | Pulmonology | Navdeep Grande, | | | 2019 | Visit | | MD Cely GORE | | | | | | [place] | | | | | | [address] | | | | | | | | +--------+---------+ + + + | 11/05/ | Office | Neurology | Tariq, | | 2019 | Visit | | [address] | | | | | | [address] [facility], | | | | | | [place] [address] | | | | | | [phone] | | | | | | | [...] 20 is stable from studies performed in 2011 but is | | | larger compared [...] stable | | from studies performed in 2011 but is larger compared with studies from 2005. A | | 2 mm subpleural left [...] + | MISCELLANEOUS LAB | | | [phone] | + +---------+ + + | MISCELANIOUS LAB | | | [phone] | + +---------+ + + documented in [...]
--- OUTSIDE RECORDS SUMMARY | ~2019-09-02 | XMS | Encounter Summary ---
Demographics + + + | Address | [address] | | | [place] [address] | + + + | Home Phone [...] + + + | Author | [facility] | | | and [place] | + + + | Organization | [facility] | | [...] | | | | | [place] [address] | | + + + + + | Robson Min | ECON | Unknown | | + + + + + | Isabella Whitehead | ECON | Unknown | | + + + + + | Seven Neff | ECON | Unknown | | + + + + + Care Team Providers + +------+ + | Care Mortgage Servicing Specialist Name | Role | Phone | + +------+ + | Ora Slater | PCP | | + +------+ + Reason for Visit +--------+ + | Reason | Comments | +--------+ + | Other | Call Back | +--------+ + Encounter Details +--------+ + + + + | Date | Type | Department | Care Team | Description | +--------+ + + + + | 08/15/ | Telephone | [facility] | Tariq, | Other (Call Back) | | 2019 | | HOSPITAL NEUROLOGY | Theo, ELECTRICAL MANUFACTURING TECHNICIAN [address] | | | | | [address] | [address] [facility] [place], | | | | | [address] [place], | [place] [address] | | | | | [place] [address] | [phone] | | | | | [phone] | | | +--------+ + + + [...] [place] | | | | | | [address] | | | | | | | | +--------+---------+ + + + | 11/05/ | Office | Neurology | Tariq, | | | 2020 | Visit | | [address] | | | | | | [address] [place], | | | | | | [place] [address] | | | | | | [phone] | | | | | | | | +--------+---------+ + + + documented as of this encounter Visit Diagnoses Not on filedocumented in this encounter"
--- OUTSIDE RECORDS SUMMARY | ~2019-09-02 | XMS | Encounter Summary ---
Demographics + + + | Address | [address] | | | [place] [address] | + + + | Home Phone | | + + + | Preferred Language | Unknown | + + + | Marital Status | Single | + + + | Pentecostal Affiliation | Unknown | + + + [...] | | | | | [place] [address] | | + + + + + | Robson Min | ECON | Unknown | | + + + + + | Isabella Whitehead | ECON | Unknown | | + + + + + | Seven Neff | ECON | Unknown | | + + + + + Care Team Providers + +------+ + | Care Rubber Goods Tester Name | Role | Phone | + [...] + + | 06/05/ | Telephone | [facility] [place] | Navdeep Grande, | Results | | 2016 | | PULMONARY [address] | MD [address] | | | | | [place], | [place] | | | | | [place] [address] | [address] | | | | | [phone] | | | +--------+ + + + [...] [place] | | | | | | [address] | | | | | | | | +--------+---------+ + + + | 11/05/ | Office | Neurology | Tariq, | | | 2019 | Visit | | [address] | | | | | | [address] [place], | | | | | | [place] [address] | | | | | | [phone] | | | | | | | [...]
--- OUTSIDE RECORDS SUMMARY | ~2019-09-02 | XMS | Encounter Summary ---
Demographics + + + | Address | [address] | | | [place] [address] | + + + | Home Phone | | + + + | Preferred Language | Unknown | + + + | Marital Status | Single | + + + | Sabianism Affiliation | Unknown | + + + | Race | Unknown | + + + | Ethnic Group | Unknown | + + + Author + + + | Author | [facility] | | | and [place] | + + + | Organization | [facility] | | | [...] | | | | | [place] [address] | | + + + + + | Robson Min | ECON | Unknown | | + + + + + | Isabella Whitehead | ECON | Unknown | | + + + + + | Seven Neff | ECON | Unknown | | + + + + + Care Team Providers + +------+ + | Care Counseling Case Manager Name | Role | Phone | + +------+ + | Bart Ba DO | PCP | | + +------+ + Reason for Visit +--------+ + | Reason | Comments | +--------+ + | Other | gastroparesis | +--------+ + Encounter Details +--------+ + + + + | Date | Type | Department | Care Team | Description | +--------+ + + + + | 09/21/ | Telephone | [facility] | Cecilio Amato MD | Other | | 2013 | | GASTROENTEROLOGY | [address] | (gastroparesis) | | | | [address] [facility] | [place], [place] | | | | | [address] [place] [address] | [address] | | | | | [address] | [phone] | | | | | [phone] | | | +--------+ + + + [...] [place] | | | | | | [address] | | | | | | | | +--------+---------+ + + + | 11/05/ | Office | Neurology | Tariq, | | | 2019 | Visit | | [address] | | | | | | [address] [place], | | | | | | [place] [address] | | | | | | [phone] | | | | | | | | +--------+---------+ + + + documented as of this encounter Visit Diagnoses Not on filedocumented in this encounter"
--- OUTSIDE RECORDS SUMMARY | ~2019-09-02 | XMS | Encounter Summary ---
Demographics + + + | Address | [address] | | | [place] [address] | + + + | Home Phone | | + + + | Preferred Language | Unknown | + + + | Marital Status | Single | + + + | Sikhism Affiliation | Unknown | + + + | Race | Unknown | + + + | Ethnic Group | Unknown | + + + Author + + + | Author | [facility] | | | and [place] | + + + | Organization | [facility] | | | [...] | | | | | [place] [address] | | + + + + + | Robson Min | ECON | Unknown | | + + + + + | Isabella Whitehead | ECON | Unknown | | + + + + + | Seven Neff | ECON | Unknown | | + + + + + Care Team Providers + +------+ + | Care Inbound Call Center Representative Name | Role | Phone | + +------+ + | Ora Slater | PCP | | + +------+ + Reason for Visit + + + | Reason | Comments | + + + | Medication Reaction | | + + + Encounter Details +--------+ + + + + | Date | Type | Department | Care Team | Description | +--------+ + + + + | 12/09/ | Telephone | [facility] | Jimbo Samayoa MD | Medication Reaction | | 2019 | | HOSPITAL NEUROLOGY | [address] | | | | | CLIN[address] | [place] | | | | | [address] [place], | [address] | | | | | [place] [address] | | | | | | [phone] | | | +--------+ + + + [...] [place] | | | | | | [address] | | | | | | | | +--------+---------+ + + + | 11/05/ | Office | Neurology | Tariq, | | | 2019 | Visit | | [address]A [address] | | | | | | [address] [place], | | | | | | [place] [address] | | | | | | [phone] | | | | | | | | +--------+---------+ + + + documented as of this encounter Visit Diagnoses Not on filedocumented in this encounter"
--- OUTSIDE RECORDS SUMMARY | ~2019-09-02 | XMS | Encounter Summary ---
Demographics + + + | Address | [address] | | | [place] [address] | + + + | Home Phone | | + + + | Preferred Language | Unknown | + + + | Marital Status | Single | + + + | Roman Catholic Affiliation | Unknown | + + + | Race | Unknown | + + + | Ethnic Group | Unknown | + + + Author + + + | Author | [facility] | | | and [place] | + + + | Organization | [facility] | [...] | | | | | [place] [address] | | + + + + + | Robson Min | ECON | Unknown | | + + + + + | Isabella Whitehead | ECON | Unknown | | + + + + + | Seven Neff | ECON | Unknown | | + + + + + Care Team Providers + +------+ + | Care Bronze Plater Name | Role | Phone | + [...] Closed | | Cardiology | Diagnoses | Lynne, | Dustin | | | | | 2 week | DO Laine | Cardiology | | | | | Procedures | [address] | | | | | CR EVENT | [address] | [address] | | | | | MONITOR | [address] | | | | | | [place] | [place] | | | | | | [address] | [address] | | | | | | Phone: | Phone: | | | | | | [phone] | [phone] | | | | | | Fax: | Fax: | | | | | | [phone] | [phone] | +--------+--------+ + + + + Encounter Details +--------+ + + + + | Date | Type | Department | Care Team | Description | +--------+ + + + + | 01/19/ | Procedure | [facility] | Laine Batista DO | Dizziness; | | 2019 | visit | CARDIOLOGY EUGENIA | [address] | Heart palpitations | | | | [address] | [place] | | | | | [address] | [address] | | | | | [place] | | | | | | [address] | | | | | | [phone] | | | +--------+ + + + [...] of this encounter Progress Notes Beth Tamayo, Candy [employer]inter - 01/19/2019 3:30 PM PDT2 week cardiac event monitor placed on patient. EOB/Billing information discussed. Instructions given and understood. P atient instructed to call [employer] for any billing or monitor questions. JDW:[facility]. [facility] umented in this encounter Plan of Treatment +--------+---------+ + + + | Date | Type | Specialty | Care Team | Description | +--------+---------+ + + + | 09/27/ | Office | Pulmonology | Navdeep Grande, | | | 2019 | Visit | | [address] | | | | | | [place] | | | | | | [address] | | | | | | | | +--------+---------+ + + + | 11/05/ | Office | Neurology | Tariq, | | | 2019 | Visit | | [address] | | | | | | [address] [facility], | | | | | | [place] [address] | | | | | | [phone] | | | | | | | | +--------+---------+ + + + documented as of this encounter Visit Diagnoses + + | Diagnosis | + + | Dizziness Dizziness and giddiness | + + | Heart palpitations Palpitations | + + documented in this encounter"
--- OUTSIDE RECORDS SUMMARY | ~2019-09-02 | XMS | Encounter Summary ---
Demographics + + + | Address | [address] | | | [place] [address] | + + + | Home Phone | | + + + | Preferred Language | Unknown | + + + | Marital Status | Single | + + + | Mosque Affiliation | CHR | + + + | Race | White | + + + | Ethnic Group | Not or | + + + Author + + + | Author | [facility] | + + + | Organization | [facility] | + + + | Address | Unknown | + + + | Phone | Unavailable | + + + Support + + + + + | Name | Relationship | Address | Phone | + + + + + | Scot Johnson | ECON | [address] | | | | | [place] [address] | | + + + + + Care Team Providers + +------+ + | Care Top Inventory Control Executive Name | Role | Phone | + +------+ + | Bart Ba DO | PCP | | + +------+ + Encounter Details +--------+ + + + + | Date | Type | Department | Care Team | Description | +--------+ + + + + | 12/12/ | Telephone | Dermatology | Azucena Jacobson MD | | | 2007 | | Medical at [facility] [address] | [address] | | | | | [address] | [address] [place], | | | | | Mailcode: [id number] | [place] [address] | | | | | [place] [facility] | [phone] | | | | | and Healing, | | | | | | | | | | | | Floor [place], [place] | | | | | | [address] | | | | | | [phone] | | | +--------+ + + + [...]
--- OUTSIDE RECORDS SUMMARY | ~2019-09-02 | XMS | Encounter Summary ---
Demographics + + + | Address | [address] | | | [place] [address] | + + + | Home Phone | | + + + | Preferred Language | Unknown | + + + | Marital Status | Single | + + + | Uatsdin Affiliation | CHR | + + + [...] | | | | | [place] [address] | | + + + + + Care Team Providers + +------+ + | Care Wastewater Technician Name | Role | Phone | + +------+ + PCP | Unavailable | + +------+ + Encounter Details +--------+ + + + + | Date | Type | Department | Care Team | Description | +--------+ + + + + | 12/02/ | Results | | Juanito Siegel | | | 2002 | Only | | | | +--------+ + + [...] | + +--------+ + + + | X-RAY CHEST 1 VIEW | Routin | 12/03/2002 | | Results for this | | | e | 7:09 AM | | procedure are in the | | | | PDT | | results section. | + +--------+ + + + | DIFFERENTIAL | Urgent | 12/03/2002 | | Results for this | | | | 4:00 AM | | procedure are in the | | | | PDT | | results section. | + +--------+ + + + | BASIC METABOLIC SET | Urgent | 12/03/2002 | | Results for this | | (NA, K, CL, TCO2, | | 4:00 AM | | procedure are in the | | BUN, CR, GLU, CA) | | PDT | | results section. | + +--------+ + + + | CBC ONLY | Urgent | 12/03/2002 | | Results for this | | | | 4:00 AM | | procedure are in the | | | | PDT | | results section. | + +--------+ + + + | CULTURE, SPUTUM | Routin | 12/02/2002 | | Results for this | | | e | 8:30 PM | | procedure are in the | | | | PDT | | results section. | + +--------+ + + + | CULTURE, URINE BACTI | Routin | 12/02/2002 | | Results for this | | | e | 6:30 PM | | procedure are in the | | | | PDT | | results section. | + +--------+ + + + | CULTURE, BLOOD BACTI | Routin | 12/02/2002 | | Results for this | | & YEAST | e | 5:05 PM | | procedure are in the | | | | PDT | | results section. | + +--------+ + + + | X-RAY CHEST 1 VIEW | Urgent | 12/02/2002 | | Results for this | | | | 5:00 PM | | procedure are in the | | | | PDT | | results section. | + +--------+ + + + | COMPLETE METABOLIC | Urgent | 12/02/2002 | | Results for this | | SET | | 5:00 PM | | procedure are in the | | (NA,K,CL,CO2,BUN,CRE | | PDT | | results section. | | AT,GLUC,CA,AST,ALT,B | | | | | | JESSICA TOTAL,ALK | | | | | | PHOS,ALB,PROT TOTAL) | | | | | + +--------+ + + + | CBC ONLY | Urgent | 12/02/2002 | | Results for this | | | | 5:00 PM | | procedure are in the | | | | PDT | | results section. | + +--------+ + + + | CULTURE, BLOOD BACTI | Routin | 12/02/2002 | | Results for this | | & YEAST | e | 5:00 PM | | procedure are in the | | | | PDT | | results section. | + +--------+ + + + | PHOSPHORUS, PLASMA | Urgent | 12/02/2002 | | Results for this | | | | 5:00 PM | | procedure are in the | | | | PDT | | results section. | + +--------+ + + + | BLOOD GASES, VENOUS | Routin | 12/02/2002 | | Results for this | | - LAB | e | 5:00 PM | | procedure are in the | | | | PDT | | results section. | + +--------+ + + + | MAGNESIUM, PLASMA | Urgent | 12/02/2002 | | Results for this | | | | 5:00 PM | | procedure are in the | | | | PDT | | results section. | + +--------+ + + + documented in this encounter Results CHEST 1 VIEW (12/03/2002 7:09 AM PDT) + + + + + + | Component | Value | Ref Range | Performed | Pathologist | | | | | At | Signature | + + + + + + | CHEST, 1 | Radiologist 1: MAR[place], | | | | | VIEW | Ngoc DOMINGUEZ-Radiologist | | | | | | 2: ANDREA PARIKH | | | | | | CHEST: 12/03/2002 | | | | | | Dictated 12/03/2002 | | | | | | COMPARISON: 12/02/02. | | | | | | FINDINGS: An enteric | | | | | | tube is present as | | | | | | before. Endotracheal | | | | | | tube,right subclavian | | | | | | central venous catheter | | | | | | and right chest tube | | | | | | areunchanged. | | | | | | Bilateral asymmetric | | | | | | patchy consolidative | | | | | | opacities andscattered | | | | | | areas of atelectasis, | | | | | | left greater than right, | | | | | | areunchanged. There | | | | | | is no pneumothorax. | | | | | | Small right pleural | | | | | | effusion orpleural | | | | | | thickening is evident. | | | | | | Cardiac silhouette | | | | | | size remainsenlarged. | | | | | | Mediastinal contours | | | | | | are normal. There is | | | | | | no definitepulmonary | | | | | | edema. There is no | | | | | | pneumothorax or | | | | | | displaced rib | | | | | | fractureidentified. | | | | | | IMPRESSION: Bilateral | | | | | | asymmetric areas of | | | | | | ground-glass and | | | | | | consolidativeopacities, | | | | | | left greater than right | | | | | | and bilateral scattered | | | | | | areas ofatelectasis. | | | | | | Consider pneumonia or | | | | | | aspiration. END OF | | | | | | IMPRESSION: | | | | + + + + + + + + | Specimen | + + | | + + + +---------+ + + | Performing | Address | City/State/Zipcode | Phone Number | | Organization | | | | + +---------+ + + | [facility] | | | | | RADIOLOGY | | | | + +---------+ + + CBC ONLY WITH PLATELET (12/03/2002 4:00 AM PDT) + + + + + + | Component | Value | Ref Range | Performed | Pathologist | | | | | At | Signature | + + + + + + | WHITE CELL | 12.1 (H) | 4.4 - 11.0 K/cu | [facility] | | | COUNT | | mm | DEPARTMENT | | | | | | OF | | | | | | PATHOLOGY | | + + + + + + | RED CELL | 3.68 | 3.65 - 5.10 | [facility] | | | COUNT | | M/cu mm | DEPARTMENT | | | | | | OF | | | | | | PATHOLOGY | | + + + + + + | HEMOGLOBIN | 11.0 | g/dL | [facility] | | | | | | DEPARTMENT | | | | | | OF | | | | | | PATHOLOGY | | + + + + + + | HEMATOCRIT | 32.0 | % | [facility] | | | | | | DEPARTMENT | | | | | | OF | | | | | | PATHOLOGY | | + + + + + + | MCV | 86.9 | 80.0 - 96.0 fL | [facility] | | | | | | DEPARTMENT | | | | | | OF | | | | | | PATHOLOGY | | + + + + + + | MCH | 29.9 | 29.0 - 32.0 pg | [facility] | | | | | | DEPARTMENT | | | | | | OF | | | | | | PATHOLOGY | | + + + + + + | MCHC | 34.3 | 33.4 - 35.5 | [facility] | | | | | g/dL | DEPARTMENT | | | | | | OF | | | | | | PATHOLOGY | | + + + + + + | RDW | 13.7 | 11.5 - 15.0 % | [facility] | | | | | | DEPARTMENT | | | | | | OF | | | | | | PATHOLOGY | | + + + + + + | PLATELET | 349 | K/cu mm | [facility] | | | COUNT | | | DEPARTMENT | | | | | | OF | | | | | | PATHOLOGY | | + + + + + + | MPV | 7.8 | 7.4 - 10.4 fL | [facility] | | | | | | DEPARTMENT | | | | | | OF | | | | | | PATHOLOGY | | + + + + + + + + | Specimen | + + | | + + + + + + + | Performing | Address | City/State/Zipcode | Phone Number | | Organization | | | | + + + + + | [facility] | [address] [facility] [address] [address] | [place] [address] | | | PATHOLOGY | [address] | | | + + + + + | [facility] | [facility] [facility] | [place] [address] | | | PATHOLOGY | [address] | | | + + + + + DIFFERENTIAL (12/03/2002 4:00 AM PDT) + +---------+ + + + | Component | Value | Ref Range | Performed | Pathologist | | | | | At | Signature | + +---------+ + + + | NEUTROPHIL | 62 | 50 - 70 % | [facility] | | | % | | | DEPARTMENT | | | | | | OF | | | | | | PATHOLOGY | | + +---------+ + + + | LYMPHOCYTE | 18 | 18 - 42 % | [facility] | | | % | | | DEPARTMENT | | | | | | OF | | | | | | PATHOLOGY | | + +---------+ + + + | MONOCYTE % | 16 (H) | 2 - 8 % | [facility] | | | | | | DEPARTMENT | | | | | | OF | | | | | | PATHOLOGY | | + +---------+ + + + | EOS % | 4 (H) | 1 - 3 % | [facility] | | | | | | DEPARTMENT | | | | | | OF | | | | | | PATHOLOGY | | + +---------+ + + + | BASO % | 0 | <3 % | [facility] | | | | | | DEPARTMENT | | | | | | OF | | | | | | PATHOLOGY | | + +---------+ + + + | NEUTROPHIL | 7.5 | 1.8 - 7.7 K/cu | [facility] | | | # | | mm | DEPARTMENT | | | | | | OF | | | | | | PATHOLOGY | | + +---------+ + + + | LYMPHOCYTE | 2.2 | 1.0 - 4.8 K/cu | [facility] | | | # | | mm | DEPARTMENT | | | | | | OF | | | | | | PATHOLOGY | | + +---------+ + + + | MONOCYTE # | 1.9 (H) | 0.1 - 0.6 K/cu | [facility] | | | | | mm | DEPARTMENT | | | | | | OF | | | | | | PATHOLOGY | | + +---------+ + + + | EOS # | 0.5 | <0.6 K/cu mm | [facility] | | | | | | DEPARTMENT | | | | | | OF | | | | | | PATHOLOGY | | + +---------+ + + + | BASO # | 0.0 | <0.3 | [facility] | | | | | | DEPARTMENT | | | | | | OF | | | | | | PATHOLOGY | | + +---------+ + + + + + | Specimen | + + | | + + + + + + + | Performing | Address | City/State/Zipcode | Phone Number | | Organization | | | | + + + + + | [facility] | [address] | [place] [address] | | | PATHOLOGY | [address] | | | + + + + + | [facility] | [address] | [place] [address] | | | PATHOLOGY | [address] | | | + + + + + BASIC METABOLIC SET (12/03/2002 4:00 AM PDT) + +---------+ + + + | Component | Value | Ref Range | Performed | Pathologist | | | | | At | Signature | + +---------+ + + + | GLUCOSE, | 115 (H) | 65 - 110 mg/dL | [facility] | | | PLASMA | | | DEPARTMENT | | | (LAB) | | | OF | | | | | | PATHOLOGY | | + +---------+ + + + | BUN, PLASMA | 8 | 6 - 20 mg/dL | [facility] | | | (LAB) | | | DEPARTMENT | | | | | | OF | | | | | | PATHOLOGY | | + +---------+ + + + | CREATININE | 0.6 | 0.6 - 1.1 mg/dL | [facility] | | | PLASMA | | | DEPARTMENT | | | (LAB) | | | OF | | | | | | PATHOLOGY | | + +---------+ + + + | SODIUM, | 134 (L) | 136 - 145 | [facility] | | | PLASMA | | mmol/L | DEPARTMENT | | | (LAB) | | | OF | | | | | | PATHOLOGY | | + +---------+ + + + | POTASSIUM, | 3.8 | 3.5 - 5.1 | [facility] | | | PLASMA | | mmol/L | DEPARTMENT | | | (LAB) | | | OF | | | | | | PATHOLOGY | | + +---------+ + + + | CHLORIDE, | 105 | 98 - 107 mmol/L | [facility] | | | PLASMA | | | DEPARTMENT | | | (LAB) | | | OF | | | | | | PATHOLOGY | | + +---------+ + + + | TOTAL CO2, | 26 | 23 - 29 mmol/L | [facility] | | | PLASMA | | | DEPARTMENT | | | (LAB) | | | OF | | | | | | PATHOLOGY | | + +---------+ + + + | CALCIUM, | 8.7 | 8.5 - 10.5 | [facility] | | | PLASMA | | mg/dL | DEPARTMENT | | | (LAB) | | | OF | | | | | | PATHOLOGY | | + +---------+ + + + + + | Specimen | + + | | + + + + + + + | Performing | Address | City/State/Zipcode | Phone Number | | Organization | | | | + + + + + | [facility] | [address] [facility] | [place] [address] | | | PATHOLOGY | [address] | | | + + + + + | [facility] | [address] [facility] [facility] | [place] [address] | | | PATHOLOGY | [address] | | | + + + + + CULTURE, SPUTUM (12/02/2002 8:30 PM PDT) + + + + + + | Component | Value | Ref Range | Performed | Pathologist | | | | | At | Signature | + + + + + + | SOURCE BODY | Endotracheal Aspirate | | | | | SITE | | | | | + + + + + + | CULTURE | Sputum Culture | | | | | RESULT | | | | | | | Source...............: | | | | | | Endotracheal Aspirate | | | | | | RLB Gram | | | | | | Stain...........: | | | | | | MODERATE PMN's | | | | | | | | | | | | MODERATE Gram | | | | | | positive cocci | | | | | | Culture: 1+ Oral | | | | | | lisa: Final | | | | | | Report Final Report | | | | + + + + + + + + | Specimen | + + | | + + + + + + + | Performing | Address | City/State/Zipcode | Phone Number | | Organization | | | | + + + + + | [facility] | [address] | [place] [address] | | | LAB-MICRO | | | | + + + + + CULT, URINE BACTI (12/02/2002 6:30 PM PDT) + + + + + + | Component | Value | Ref Range | Performed | Pathologist | | | | | At | Signature | + + + + + + | SOURCE BODY | Retention catheter | | | | | SITE | | | | | + + + + + + | CULTURE | Urine Culture | | | | | RESULT | | | | | | | Source...............: | | | | | | Retention catheter | | | | | | Culture: Final | | | | | | Report: No growth (< | | | | | | 1,000 col/ml) after | | | | | | 18-24 | | | | | | | | | | | | hours Final Report | | | | + + + + + + + + | Specimen | + + | | + + + + + + + | Performing | Address | City/State/Zipcode | Phone Number | | Organization | | | | + + + + + | [facility] | [address] | [place] [address] | | | LAB-MICRO | | | | + + + + + CULT, BLOOD BACTI & TEA (12/02/2002 5:05 PM PDT) + + + + + + | Component | Value | Ref Range | Performed | Pathologist | | | | | At | Signature | + + + + + + | SOURCE BODY | TLC white port | | | | | SITE | | | | | + + + + + + | CULTURE | Blood Culture | | | | | RESULT | | | | | | | Source.................. | | | | | | : TLC white port | | | | | | Preliminary | | | | | | Report......: Blood | | | | | | Culture Received. No | | | | | | Growth to Date. | | | | | | Culture | | | | | | Report............: | | | | | | Final Report: No | | | | | | Bacteria or Yeast | | | | | | | | | | | | | | | | | | isolated at 5 days. | | | | + + + + + + + + | Specimen | + + | | + + + + + + + | Performing | Address | City/State/Zipcode | Phone Number | | Organization | | | | + + + + + | [facility] | [address] | [place] [address] | | | LAB-MICRO | | | | + + + + + CALEB ADAMSON (12/02/2002 5:00 PM PDT) + + + + + + | Component | Value | Ref Range | Performed | Pathologist | | | | | At | Signature | + + + + + + | SOURCE BODY | TLC brown port | | | | | SITE | | | | | + + + + + + | CULTURE | Blood Culture | | | | | RESULT | | | | | | | Source.................. | | | | | | : TLC brown port | | | | | | Preliminary | | | | | | Report......: Blood | | | | | | Culture Received. No | | | | | | Growth to Date. | | | | | | Culture | | | | | | Report............: | | | | | | Final Report: No | | | | | | Bacteria or Yeast | | | | | | | | | | | | | | | | | | isolated at 5 days. | | | | + + + + + + + + | Specimen | + + | | + + + + + + + | Performing | Address | City/State/Zipcode | Phone Number | | Organization | | | | + + + + + | [facility] | [address] | [place] [address] | | | LAB-MICRO | | | | + + + + + CBC ONLY WITH PLATELET (12/02/2002 5:00 PM PDT) + +-------+ + + + | Component | Value | Ref Range | Performed | Pathologist | | | | | At | Signature | + +-------+ + + + | WHITE CELL | 10.0 | 4.4 - 11.0 K/cu | [facility] | | | COUNT | | mm | DEPARTMENT | | | | | | OF | | | | | | PATHOLOGY | | + +-------+ + + + | RED CELL | 3.75 | 3.65 - 5.10 | [facility] | | | COUNT | | M/cu mm | DEPARTMENT | | | | | | OF | | | | | | PATHOLOGY | | + +-------+ + + + | HEMOGLOBIN | 10.9 | g/dL | [facility] | | | | | | DEPARTMENT | | | | | | OF | | | | | | PATHOLOGY | | + +-------+ + + + | HEMATOCRIT | 32.7 | % | [facility] | | | | | | DEPARTMENT | | | | | | OF | | | | | | PATHOLOGY | | + +-------+ + + + | MCV | 87.1 | 80.0 - 96.0 fL | [facility] | | | | | | DEPARTMENT | | | | | | OF | | | | | | PATHOLOGY | | + +-------+ + + + | MCH | 29.2 | 29.0 - 32.0 pg | [facility] | | | | | | DEPARTMENT | | | | | | OF | | | | | | PATHOLOGY | | + +-------+ + + + | MCHC | 33.5 | 33.4 - 35.5 | [facility] | | | | | g/dL | DEPARTMENT | | | | | | OF | | | | | | PATHOLOGY | | + +-------+ + + + | RDW | 13.9 | 11.5 - 15.0 % | [facility] | | | | | | DEPARTMENT | | | | | | OF | | | | | | PATHOLOGY | | + +-------+ + + + | PLATELET | 348 | K/cu mm | [facility] | | | COUNT | | | DEPARTMENT | | | | | | OF | | | | | | PATHOLOGY | | + +-------+ + + + | MPV | 7.8 | 7.4 - 10.4 fL | [facility] | | | | | | DEPARTMENT | | | | | | OF | | | | | | PATHOLOGY | | + +-------+ + + + + + | Specimen | + + | | + + + + + + + | Performing | Address | City/State/Zipcode | Phone Number | | Organization | | | | + + + + + | [facility] | [address] [facility] | [place] [address] | | | PATHOLOGY | [address] | | | + + + + + | [facility] | [address] [facility] | [place] [address] | | | PATHOLOGY | [address] | | | + + + + + COMP METABOLIC SET (12/02/2002 5:00 PM PDT) + +---------+ + + + | Component | Value | Ref Range | Performed | Pathologist | | | | | At | Signature | + +---------+ + + + | GLUCOSE, | 128 (H) | 65 - 110 mg/dL | [facility] | | | PLASMA | | | DEPARTMENT | | | (LAB) | | | OF | | | | | | PATHOLOGY | | + +---------+ + + + | BUN, PLASMA | 7 | 6 - 20 mg/dL | [facility] | | | (LAB) | | | DEPARTMENT | | | | | | OF | | | | | | PATHOLOGY | | + +---------+ + + + | CREATININE | 0.5 (L) | 0.6 - 1.1 mg/dL | [facility] | | | PLASMA | | | DEPARTMENT | | | (LAB) | | | OF | | | | | | PATHOLOGY | | + +---------+ + + + | TOTAL | 6.0 (L) | 6.1 - 7.9 g/dL | [facility] | | | PROTEIN, | | | DEPARTMENT | | | PLASMA | | | OF | | | (LAB) | | | PATHOLOGY | | + +---------+ + + + | ALBUMIN, | 1.9 (L) | 3.5 - 4.7 g/dL | [facility] | | | PLASMA | | | DEPARTMENT | | | (LAB) | | | OF | | | | | | PATHOLOGY | | + +---------+ + + + | CALCIUM, | 9.0 | 8.5 - 10.5 | [facility] | | | PLASMA | | mg/dL | DEPARTMENT | | | (LAB) | | | OF | | | | | | PATHOLOGY | | + +---------+ + + + | BILIRUBIN | 0.5 | 0.3 - 1.2 mg/dL | [facility] | | | TOTAL | | | DEPARTMENT | | | | | | OF | | | | | | PATHOLOGY | | + +---------+ + + + | ALK PHOS | 52 | 42 - 98 U/L | [facility] | | | | | | DEPARTMENT | | | | | | OF | | | | | | PATHOLOGY | | + +---------+ + + + | AST(SGOT) | 9 (L) | 15 - 41 U/L | [facility] | | | | | | DEPARTMENT | | | | | | OF | | | | | | PATHOLOGY | | + +---------+ + + + | SODIUM, | 135 (L) | 136 - 145 | [facility] | | | PLASMA | | mmol/L | DEPARTMENT | | | (LAB) | | | OF | | | | | | PATHOLOGY | | + +---------+ + + + | POTASSIUM, | 3.6 | 3.5 - 5.1 | [facility] | | | PLASMA | | mmol/L | DEPARTMENT | | | (LAB) | | | OF | | | | | | PATHOLOGY | | + +---------+ + + + | CHLORIDE, | 97 (L) | 98 - 107 mmol/L | [facility] | | | PLASMA | | | DEPARTMENT | | | (LAB) | | | OF | | | | | | PATHOLOGY | | + +---------+ + + + | TOTAL CO2, | 24 | 23 - 29 mmol/L | [facility] | | | PLASMA | | | DEPARTMENT | | | (LAB) | | | OF | | | | | | PATHOLOGY | | + +---------+ + + + | ALT (SGPT) | 9 (L) | 13 - 48 U/L | [facility] | | | | | | DEPARTMENT | | | | | | OF | | | | | | PATHOLOGY | | + +---------+ + + + + + | Specimen | + + | | + + + + + + + | Performing | Address | City/State/Zipcode | Phone Number | | Organization | | | | + + + + + | [facility] | [address] [facility] | [place] [address] | | | PATHOLOGY | [address] | | | + + + + + | [facility] | [address] [facility] | [place] [address] | | | PATHOLOGY | [address] | | | + + + + + MAGNESIUM, PLASMA (12/02/2002 5:00 PM PDT) + +---------+ + + + | Component | Value | Ref Range | Performed | Pathologist | | | | | At | Signature | + +---------+ + + + | MAGNESIUM,P | 1.5 (L) | 1.8 - 2.5 mg/dL | [facility] | | | LASMA | | | DEPARTMENT | | | | | | OF | | | | | | PATHOLOGY | | + +---------+ + + + + + | Specimen | + + | | + + + + + + + | Performing | Address | City/State/Zipcode | Phone Number | | Organization | | | | + + + + + | [facility] | [address] | [place] [address] | | | PATHOLOGY | [address] | | | + + + + + | [facility] | [address] | [place] [address] | | | PATHOLOGY | [address] | | | + + + + + PHOSPHORUS, PLASMA (12/02/2002 5:00 PM PDT) + +-------+ + + + | Component | Value | Ref Range | Performed | Pathologist | | | | | At | Signature | + +-------+ + + + | PHOSPHORUS, | 3.6 | 2.4 - 4.7 mg/dL | [facility] | | | PLASMA | | | DEPARTMENT | | | (LAB) | | | OF | | | | | | PATHOLOGY | | + +-------+ + + + + + | Specimen | + + | | + + + + + + + | Performing | Address | City/State/Zipcode | Phone Number | | Organization | | | | + + + + + | [facility] | [address] | [place] [address] | | | PATHOLOGY | [address] | | | + + + + + | [facility] | [address] | [place] [address] | | | PATHOLOGY | [address] | | | + + + + + BLOOD GASES, VENOUS (12/02/2002 5:00 PM PDT) + +-------+ + + + | Component | Value | Ref Range | Performed | Pathologist | | | | | At | Signature | + +-------+ + + + | PAT TEMP | 37.9 | Degree C | [facility] | | | VENOUS | | | DEPARTMENT | | | | | | OF | | | | | | PATHOLOGY | | + +-------+ + + + | FIO2 VENOUS | 0.40 | | [facility] | | | | | | DEPARTMENT | | | | | | OF | | | | | | PATHOLOGY | | + +-------+ + + + | PH VENOUS | 7.40 | 7.35 - 7.45 | [facility] | | | | | | DEPARTMENT | | | | | | OF | | | | | | PATHOLOGY | | + +-------+ + + + | PCO2 VENOUS | 44 | 35 - 50 mmHg | [facility] | | | | | | DEPARTMENT | | | | | | OF | | | | | | PATHOLOGY | | + +-------+ + + + | PO2 VENOUS | 43 | 30 - 55 mmHg | [facility] | | | | | | DEPARTMENT | | | | | | OF | | | | | | PATHOLOGY | | + +-------+ + + + | BASE EXCESS | 2.3 | | [facility] | | | VENOUS | | | DEPARTMENT | | | | | | OF | | | | | | PATHOLOGY | | + +-------+ + + + | HCO3 VENOUS | 27 | 22 - 28 mmol/L | [facility] | | | | | | DEPARTMENT | | | | | | OF | | | | | | PATHOLOGY | | + +-------+ + + + | TOTAL CO2 | 28 | 23 - 29 mmol/L | [facility] | | | VENOUS | | | DEPARTMENT | | | | | | OF | | | | | | PATHOLOGY | | + +-------+ + + + | O2 SAT, | 78.1 | % | [facility] | | | VENOUS | | | DEPARTMENT | | | | | | OF | | | | | | PATHOLOGY | | + +-------+ + + + + + | Specimen | + + | | + + + + + | Narrative | Performed At | + + + | Venous Blood Gas Blood Gas results corrected for | [facility] | | patient's temp when available | DEPARTMENT OF | | | PATHOLOGY | + + + + + + + + | Performing | Address | City/State/Zipcode | Phone Number | | Organization | | | | + + + + + | [facility] | [id number] | [place] [address] | | | PATHOLOGY | [address] | | | + + + + + | [facility] | [address] | [place] [address] | | | PATHOLOGY | [address] | | | + + + + + CHEST 1 VIEW (12/02/2002 5:00 PM PDT) + + + + + + | Component | Value | Ref Range | Performed | Pathologist | | | | | At | Signature | + + + + + + | CHEST, 1 | Radiologist 1: MARIXA, | | | | | VIEW | Ngoc DOMINGUEZCHEST ONE | | | | | | VIEW: 12/02/2002 | | | | | | Dictated 12/02/2002 | | | | | | COMPARISON: None. | | | | | | FINDINGS: Tailored | | | | | | radiograph for feeding | | | | | | tube placement | | | | | | showsDobbhoff feeding | | | | | | tube coiled in the | | | | | | stomach with the tip | | | | | | facingcephalad in the | | | | | | gastric fundus. | | | | | | Scattered linear | | | | | | opacities are | | | | | | notedwithin the right | | | | | | lung and there are | | | | | | ground-glass opacities | | | | | | in the leftupper lobe | | | | | | which are incompletely | | | | | | evaluated on this film. | | | | | | There is aright-sided | | | | | | chest tube with minimal | | | | | | subcutaneous emphysema | | | | | | in theright hemithorax. | | | | | | A small right pleural | | | | | | effusion may be | | | | | | present.There are low | | | | | | lung volumes. | | | | | | IMPRESSION: 1. | | | | | | Dobbhoff feeding tube | | | | | | tip coiled in the | | | | | | stomach with the | | | | | | tipfacing cephalad in | | | | | | the gastric fundus. 2. | | | | | | Low lung volumes with | | | | | | scattered areas of | | | | | | linear | | | | | | subsegmentalatelectasis | | | | | | in the right lung. 3. | | | | | | Probable small right | | | | | | pleural effusion. 4. | | | | | | Minimal right | | | | | | subcutaneous emphysema. | | | | | | 5. Ground-glass | | | | | | opacification in the | | | | | | left upper lobe, | | | | | | incompletelyevaluated, | | | | | | may represent pneumonia | | | | | | or noncardiogenic edema. | | | | | | END OF IMPRESSION: | | | | | | | | | | + + + + + + + + | Specimen | + + | | + + + +---------+ + + | Performing | Address | City/State/Zipcode | Phone Number | | Organization | | | | + +---------+ + + | [facility] | | | | | RADIOLOGY | | | | + +---------+ + + documented in this encounter Visit Diagnoses Not on filedocumented in this encounter"
--- OUTSIDE RECORDS SUMMARY | ~2019-09-02 | XMS | Encounter Summary ---
Demographics + + + | Address | [address] | | | [place] [address] | + + + | Home Phone | | + + + | Preferred Language | Unknown | + + + | Marital Status | Single | + + + | Congregational Affiliation | [employer] | + + + [...] | | | | | [place] [address] | | + + + + + Care Team Providers + +------+ + | Care Reefer Engineer Name | Role | Phone | + +------+ + PCP | Unavailable | + +------+ + Encounter Details +--------+ + + + + | Date | Type | Department | Care Team | Description | +--------+ + + + + | 10/30/ | Respiratory | | Other, Faculty | | | 2006 | Therapy | | [phone] | | +--------+ + + + + [...] + | MEDICAL GAS/HUMIDITY | Routin | 10/30/2005 | | Results for this | | | e | 11:22 AM | | procedure are in the | | | | PDT | | results section. | + +--------+ + + + documented in this encounter Results MEDICAL GAS/HUMIDITY (10/30/2005 11:22 AM PDT) + + + + + + | Component | Value | Ref Range | Performed | Pathologist | | | | | At | Signature | + + + + + + | [facility] | NASAL CANNULA AT 4 | | | | | GAS/HUMIDIT | | | | | | Y | [facility] | | | | + + + [...] [facility]NET[facility] | [address] | [place], [place] | | | DIAGNOSTICS - | [place] | [address] | | | PULMONARY FUNCTION | | | | + + + + + documented in this encounter Visit Diagnoses Not on filedocumented in this encounter"
--- OUTSIDE RECORDS SUMMARY | ~2019-09-02 | XMS | Encounter Summary ---
Demographics + + + | Address | [address] | | | [place] [address] | + + + | Home Phone [...] | | | | | [place] [address] | | + + + + + | Robson Min | ECON | Unknown | | + + + + + | Isabella Whitehead | ECON | Unknown | | + + + + + | Seven Neff | ECON | Unknown | | + + + + + Care Team Providers + +------+ + | Care Lining Marker Name | Role | Phone | + [...] | Specialty | Sleep | Diagnoses | Harjinder, | [facility] | | | Services | Medicine | Sleep | MD Navdeep | Center [address] | | | Required | | apnea, | [address] [place] | | | | | unspecified | [address] | [place], | | | | | type | [place], | [place] [address] | | | | | Alveolar | [place] [address] | Phone: | | | | | hypoventilat | Phone: | [phone] | | | | | ion | [phone] | Fax: | | | | | Procedures | Fax: | [phone] | | | | | [place] POLYSOM | [phone] | | | | | | 6/>YRS [...] + + | 11/16/ | Telephone | [facility] | Navdeep Grande, | Results (nocturnal | | 2018 | | PULMONARY [address] | MD [address] | oximetry) | | | | [place], | [place], [place] | | | | | [place] [address] | [address] | | | | | [phone] | | | +--------+ + + + [...] 09/27/ | Office | Pulmonology | Navdeep Graned, | | | 2019 | Visit | | MD Cely GORE | | | | | | [place] | | | | | | [address] | | | | | | | | +--------+---------+ + + + | 11/05/ | Office | Neurology | Tariq, | | | 2019 | Visit | | [address] | | | | | [address] [facility], | | | | | | [place] [address] | | | | | | [phone] | | | | | | | | +--------+---------+ + + + + + +--------+ + + | Name | Type | Priori | Associated Diagnoses | Order Schedule | | | | ty | | | + + +--------+ + + | * [facility] - | Outpatient | Routin [...]
--- OUTSIDE RECORDS SUMMARY | ~2019-09-02 | XMS | Encounter Summary ---
Demographics + + + | Address | [address] | | | [place] [address] | + + + | Home Phone | | + + + | Preferred Language | Unknown | + + + | Marital Status | Single | + + + | Evangelical Affiliation | CHR | + + + | Race | White | + + + | Ethnic Group | Not or | + + + Author + + + | Author | [facility] | + + + | Organization | [facility] | + + + | Address | Unknown | + + + | Phone | Unavailable | + + + Support + + + + + | Name | Relationship | Address | Phone | + + + + + | Scot Johnson | ECON | [address] | | | | | [place] [address] | | + + + + + Care Team Providers + +------+ + | Care Coremaker Name | Role | Phone | + +------+ + | Bart Ba DO | PCP | | + +------+ + Encounter Details +--------+ + + + + | Date | Type | Department | Care Team | Description | +--------+ + + + + | 10/21/ | Hospital | Registration [address] | Rivka Sampson, | | | 2005 | Activity | [address] | [address] | | | | | [place] Mailcode: [id number] | [address] | | | | | [place], [place] | [place], [place] | | | | | [address] | [address] | | | | | [phone] | [phone] | | | | | | | | +--------+ + [...] +--------+ + + + | X-RAY CHEST 2 VIEW | Routin | 11/03/2005 | | Results for this | | | e | 8:43 AM | | procedure are in the | | | | PDT | | results section. | + +--------+ + + + | X-RAY CHEST 2 VIEW | Routin | 11/02/2005 | | Results for this | | | e | 11:09 AM | | procedure are in the | | | | PDT | | results section. | + +--------+ + + + | BASIC METABOLIC SET | Routin | 11/01/2005 | | Results for this | | (NA, K, CL, TCO2, | e | 6:52 AM | | procedure are in the | | BUN, CR, GLU, CA) | | PDT | | results section. | + +--------+ + + + | CBC ONLY | Routin | 11/01/2005 | | Results for this | | | e | 6:52 AM | | procedure are in the | | | | PDT | | results section. | + +--------+ + + + | BASIC METABOLIC SET | Routin | 11/01/2005 | | Results for this | | (NA, K, CL, TCO2, | e | 6:01 AM | | procedure are in the | | BUN, CR, GLU, CA) | | PDT | | results section. | + +--------+ + + + | CBC ONLY | Routin | 11/01/2005 | | Results for this | | | e | 6:01 AM | | procedure are in the | | | | PDT | | results section. | + +--------+ + + + | X-RAY CHEST 2 VIEW | Routin | 10/31/2005 | | Results for this | | | e | 3:45 PM | | procedure are in the | | | | PDT | | results section. | + +--------+ + + + | X-RAY CHEST 2 VIEW | Routin | 10/31/2005 | | Results for this | | | e | 10:25 AM | | procedure are in the | | | | PDT | | results section. | + +--------+ + + + | RENAL FUNCTION SET | Routin | 10/31/2005 | | Results for this | | (NA,K,CL,CO2,BUN,CRE | e | 7:25 AM | | procedure are in the | | AT,GLUC,CA,PHOS,ALB | | PDT | | results section. | | ) | | | | | + +--------+ + + + | CBC ONLY | Routin | 10/31/2005 | | Results for this | | | e | 7:25 AM | | procedure are in the | | | | PDT | | results section. | + +--------+ + + + | MAGNESIUM, PLASMA | Routin | 10/31/2005 | | Results for this | | | e | 7:25 AM | | procedure are in the | | | | PDT | | results section. | + +--------+ + + + | CALCIUM, PLASMA | Routin | 10/31/2005 | | Results for this | | | e | 7:25 AM | | procedure are in the | | | | PDT | | results section. | + +--------+ + + + | TOTAL RESULTS | Routin | 10/30/2005 | | Results for this | | FOR,URINE | e | 11:00 AM | | procedure are in the | | | | PDT | | results section. | + +--------+ + + + | TOTAL RESULTS | Routin | 10/30/2005 | | Results for this | | FOR,URINE | e | 11:00 AM | | procedure are in the | | | | PDT | | results section. | + +--------+ + + + | SODIUM TOTAL, URINE | Routin | 10/30/2005 | | Results for this | | | e | 11:00 AM | | procedure are in the | | | | PDT | | results section. | + +--------+ + + + | OSMOLALITY, URINE | Routin | 10/30/2005 | | Results for this | | SPOT | e | 11:00 AM | | procedure are in the | | | | PDT | | results section. | + +--------+ + + + | CREATININE, URINE | Routin | 10/30/2005 | | Results for this | | | e | 11:00 AM | | procedure are in the | | | | PDT | | results section. | + +--------+ + + + | X-RAY CHEST 2 VIEW | Routin | 10/30/2005 | | Results for this | | | e | 10:22 AM | | procedure are in the | | | | PDT | | results section. | + +--------+ + + + | BASIC METABOLIC SET | Routin | 10/30/2005 | | Results for this | | (NA, K, CL, TCO2, | e | 7:14 AM | | procedure are in the | | BUN, CR, GLU, CA) | | PDT | | results section. | + +--------+ + + + | RENAL FUNCTION SET | Routin | 10/30/2005 | | Results for this | | (NA,K,CL,CO2,BUN,CRE | e | 7:14 AM | | procedure are in the | | AT,GLUC,CA,PHOS,ALB | | PDT | | results section. | | ) | | | | | + +--------+ + + + | CBC ONLY | Routin | 10/30/2005 | | Results for this | | | e | 7:14 AM | | procedure are in the | | | | PDT | | results section. | + +--------+ + + + | MAGNESIUM, PLASMA | Routin | 10/30/2005 | | Results for this | | | e | 7:14 AM | | procedure are in the | | | | PDT | | results section. | + +--------+ + + + | CALCIUM, PLASMA | Routin | 10/30/2005 | | Results for this | | | e | 7:14 AM | | procedure are in the | | | | PDT | | results section. | + +--------+ + + + | BASIC METABOLIC SET | Urgent | 10/29/2005 | | Results for this | | (NA, K, CL, TCO2, | | 6:50 AM | | procedure are in the | | BUN, CR, GLU, CA) | | PDT | | results section. | + +--------+ + + + | RENAL FUNCTION SET | Routin | 10/29/2005 | | Results for this | | (NA,K,CL,CO2,BUN,CRE | e | 6:50 AM | | procedure are in the | | AT,GLUC,CA,PHOS,ALB | | PDT | | results section. | | ) | | | | | + +--------+ + + + | CBC ONLY | Routin | 10/29/2005 | | Results for this | | | e | 6:50 AM | | procedure are in the | | | | PDT | | results section. | + +--------+ + + + | OSMOLALITY, PLASMA | Routin | 10/29/2005 | | Results for this | | | e | 6:50 AM | | procedure are in the | | | | PDT | | results section. | + +--------+ + + + | MAGNESIUM, PLASMA | Routin | 10/29/2005 | | Results for this | | | e | 6:50 AM | | procedure are in the | | | | PDT | | results section. | + +--------+ + + + | CALCIUM, PLASMA | Routin | 10/29/2005 | | Results for this | | | e | 6:50 AM | | procedure are in the | | | | PDT | | results section. | + +--------+ + + + | X-RAY CHEST 1 VIEW | Routin | 10/29/2005 | | Results for this | | | e | 12:02 AM | | procedure are in the | | | | PDT | | results section. | + +--------+ + + + | X-RAY CHEST 1 VIEW | Specif | 10/28/2005 | | Results for this | | | ic | 5:00 AM | | procedure are in the | | | (Rad | PDT | | results section. | | | orders | | | | | | only) | | | | + +--------+ + + + | EXTENDED DIFF | Urgent | 10/28/2005 | | Results for this | | | | 3:15 AM | | procedure are in the | | | | PDT | | results section. | + +--------+ + + + | MANUAL DIFFERENTIAL | Urgent | 10/28/2005 | | Results for this | | | | 3:15 AM | | procedure are in the | | | | PDT | | results section. | + +--------+ + + + | DIFFERENTIAL | Urgent | 10/28/2005 | | Results for this | | | | 3:15 AM | | procedure are in the | | | | PDT | | results section. | + +--------+ + + + | CBC, WITH | Urgent | 10/28/2005 | | Results for this | | DIFFERENTIAL | | 3:15 AM | | procedure are in the | | | | PDT | | results section. | + +--------+ + + + | RENAL FUNCTION SET | Urgent | 10/28/2005 | | Results for this | | (NA,K,CL,CO2,BUN,CRE | | 3:15 AM | | procedure are in the | | AT,GLUC,CA,PHOS,ALB | | PDT | | results section. | | ) | | | | | + +--------+ + + + | MAGNESIUM, PLASMA | Urgent | 10/28/2005 | | Results for this | | | | 3:15 AM | | procedure are in the | | | | PDT | | results section. | + +--------+ + + + | BLOOD GASES, | Urgent | 10/28/2005 | | Results for this | | ARTERIAL - LAB | | 12:20 AM | | procedure are in the | | | | PDT | | results section. | + +--------+ + + + | BLOOD GASES, | Urgent | 10/27/2005 | | Results for this | | ARTERIAL - LAB | | 7:35 PM | | procedure are in the | | | | PDT | | results section. | + +--------+ + + + | X-RAY CHEST 1 VIEW | Urgent | 10/27/2005 | | Results for this | | | | 6:53 PM | | procedure are in the | | | | PDT | | results section. | + +--------+ + + + | DIFFERENTIAL | Urgent | 10/27/2005 | | Results for this | | | | 6:15 PM | | procedure are in the | | | | PDT | | results section. | + +--------+ + + + | SLIDE REVIEW | Urgent | 10/27/2005 | | Results for this | | | | 6:15 PM | | procedure are in the | | | | PDT | | results section. | + +--------+ + + + | CBC, WITH | Urgent | 10/27/2005 | | Results for this | | DIFFERENTIAL | | 6:15 PM | | procedure are in the | | | | PDT | | results section. | + +--------+ + + + | RENAL FUNCTION SET | Urgent | 10/27/2005 | | Results for this | | (NA,K,CL,CO2,BUN,CRE | | 6:15 PM | | procedure are in the | | AT,GLUC,CA,PHOS,ALB | | PDT | | results section. | | ) | | | | | + +--------+ + + + | BLOOD GASES, | Urgent | 10/27/2005 | | Results for this | | ARTERIAL - LAB | | 6:15 PM | | procedure are in the | | | | PDT | | results section. | + +--------+ + + + | MAGNESIUM, PLASMA | Urgent | 10/27/2005 | | Results for this | | | | 6:15 PM | | procedure are in the | | | | PDT | | results section. | + +--------+ + + + | FUNGUS PRELIMINARY 1 | Routin | 10/27/2005 | | Results for this | | | e | 3:03 PM | | procedure are in the | | | | PDT | | results section. | + +--------+ + + + | AFB PRELIM 1 | Routin | 10/27/2005 | | Results for this | | | e | 3:03 PM | | procedure are in the | | | | PDT | | results section. | + +--------+ + + + | FUNGAL SMEAR ONLY | Routin | 10/27/2005 | | Results for this | | | e | 3:03 PM | | procedure are in the | | | | PDT | | results section. | + +--------+ + + + | ACID FAST BACILLI, | Routin | 10/27/2005 | | Results for this | | SMEAR ONLY | e | 3:03 PM | | procedure are in the | | | | PDT | | results section. | + +--------+ + + + | CULTURE, FUNGAL & | Routin | 10/27/2005 | | Results for this | | SMEAR | e | 3:03 PM | | procedure are in the | | | | PDT | | results section. | + +--------+ + + + | CULTURE, AFB (ALL | Routin | 10/27/2005 | | Results for this | | SPEC TYPES EXCEPT | e | 3:03 PM | | procedure are in the | | BLOOD) | | PDT | | results section. | + +--------+ + + + | CULTURE, WOUND BACTI | Routin | 10/27/2005 | | Results for this | | & GS | e | 3:03 PM | | procedure are in the | | | | PDT | | results section. | + +--------+ + + + | GRAM SMEAR ONLY, | Routin | 10/27/2005 | | Results for this | | STAT | e | 3:03 PM | | procedure are in the | | | | PDT | | results section. | + +--------+ + + + | FUNGUS PRELIMINARY 1 | Routin | 10/27/2005 | | Results for this | | | e | 2:46 PM | | procedure are in the | | | | PDT | | results section. | + +--------+ + + + | AFB PRELIM 1 | Routin | 10/27/2005 | | Results for this | | | e | 2:46 PM | | procedure are in the | | | | PDT | | results section. | + +--------+ + + + | CULTURE, TISSUE | Routin | 10/27/2005 | | Results for this | | | e | 2:46 PM | | procedure are in the | | | | PDT | | results section. | + +--------+ + + + | FUNGAL SMEAR ONLY | Routin | 10/27/2005 | | Results for this | | | e | 2:46 PM | | procedure are in the | | | | PDT | | results section. | + +--------+ + + + | ACID FAST BACILLI, | Routin | 10/27/2005 | | Results for this | | SMEAR ONLY | e | 2:46 PM | | procedure are in the | | | | PDT | | results section. | + +--------+ + + + | CULTURE, FUNGAL & | Routin | 10/27/2005 | | Results for this | | SMEAR | e | 2:46 PM | | procedure are in the | | | | PDT | | results section. | + +--------+ + + + | CULTURE, AFB (ALL | Routin | 10/27/2005 | | Results for this | | SPEC TYPES EXCEPT | e | 2:46 PM | | procedure are in the | | BLOOD) | | PDT | | results section. | + +--------+ + + + | GRAM SMEAR ONLY, | Routin | 10/27/2005 | | Results for this | | STAT | e | 2:46 PM | | procedure are in the | | | | PDT | | results section. | + +--------+ + + + | HCG QUAL, URINE | Routin | 10/27/2005 | | Results for this | | | e | 7:05 AM | | procedure are in the | | | | PDT | | results section. | + +--------+ + + + | SURGICAL PATHOLOGY | Routin | 10/27/2005 | | Results for this | | | e | | | procedure are in the | | | | | | results section. | + +--------+ + + + | BLOOD BANK PRODUCT | Routin | 10/26/2005 | | Results for this | | | e | 10:45 AM | | procedure are in the | | | | PDT | | results section. | + +--------+ + + + | BLOOD BANK PRODUCT | Routin | 10/26/2005 | | Results for this | | | e | 10:45 AM | | procedure are in the | | | | PDT | | results section. | + +--------+ + + + | INR | Routin | 10/26/2005 | | Results for this | | | e | 10:45 AM | | procedure are in the | | | | PDT | | results section. | + +--------+ + + + | COMPLETE METABOLIC | Routin | 10/26/2005 | | Results for this | | SET | e | 10:45 AM | | procedure are in the | | (NA,K,CL,CO2,BUN,CRE | | PDT | | results section. | | AT,GLUC,CA,AST,ALT,B | | | | | | JESSICA TOTAL,ALK | | | | | | PHOS,ALB,PROT TOTAL) | | | | | + +--------+ + + + | CBC ONLY | Routin | 10/26/2005 | | Results for this | | | e | 10:45 AM | | procedure are in the | | | | PDT | | results section. | + +--------+ + + + | APTT (ACT. PART. | Routin | 10/26/2005 | | Results for this | | THROMBO TIME) | e | 10:45 AM | | procedure are in the | | | | PDT | | results section. | + +--------+ + + + | TYPE AND CROSSMATCH | Routin | 10/26/2005 | | Results for this | | | e | 10:45 AM | | procedure are in the | | | | PDT | | results section. | + +--------+ + + + | CT CHEST WO CONTRAST | Routin | 10/25/2005 | | Results for this | | | e | 9:40 AM | | procedure are in the | | | | PDT | | results section. | + +--------+ + + + | BASIC METABOLIC SET | Routin | 10/23/2005 | | Results for this | | (NA, K, CL, TCO2, | e | 11:12 AM | | procedure are in the | | BUN, CR, GLU, CA) | | PDT | | results section. | + +--------+ + + + | CBC ONLY | Routin | 10/23/2005 | | Results for this | | | e | 11:12 AM | | procedure are in the | | | | PDT | | results section. | + +--------+ + + + | UAMAILESTICK ONLY | Routin | 10/22/2005 | | Results for this | | | e | 8:50 PM | | procedure are in the | | | | PDT | | results section. | + +--------+ + + + | OSMOLALITY, PLASMA | Routin | 10/22/2005 | | Results for this | | | e | 5:44 PM | | procedure are in the | | | | PDT | | results section. | + +--------+ + + + | INR | Routin | 10/21/2005 | | Results for this | | | e | 8:00 PM | | procedure are in the | | | | PDT | | results section. | + +--------+ + + + | COMPLETE METABOLIC | Routin | 10/21/2005 | | Results for this | | SET | e | 8:00 PM | | procedure are in the | | (NA,K,CL,CO2,BUN,CRE | | PDT | | results section. | | AT,GLUC,CA,AST,ALT,B | | | | | | JESSICA TOTAL,ALK | | | | | | PHOS,ALB,PROT TOTAL) | | | | | + +--------+ + + + | CBC ONLY | Routin | 10/21/2005 | | Results for this | | | e | 8:00 PM | | procedure are in the | | | | PDT | | results section. | + +--------+ + + + | APTT (ACT. PART. | Routin | 10/21/2005 | | Results for this | | THROMBO TIME) | e | 8:00 PM | | procedure are in the | | | | PDT | | results section. | + +--------+ + + + documented in this encounter Results CHEST 2 VIEW (11/03/2005 8:43 AM PDT) + + + + + + | Component | Value | Ref Range | Performed | Pathologist | | | | | At | Signature | + + + + + + | CHEST, 2 | Radiologist 1: DOBOS, | | | | | VIEWS [place] | WES[place], MDPA and lateral | | | | | STEREO | chest. Comparison to | | | | | | yesterday. No | | | | | | pneumothorax seen | | | | | | following right chest | | | | | | tube removal withtubular | | | | | | opacity and lucency | | | | | | projecting over the | | | | | | right chest tubetract. | | | | | | Small partially | | | | | | loculated right pleural | | | | | | effusion is againnoted. | | | | | | Postsurgical changes | | | | | | are again seen | | | | | | followingesophagectomy | | | | | | with gastric pull | | | | | | through. There is | | | | | | scatteredbibasilar | | | | | | atelectasis, right | | | | | | greater than left. | | | | | | Right IJ centralvenous | | | | | | line removed | | | | | | CONCLUSION: 1. No | | | | | | pneumothorax following | | | | | | right chest tube | | | | | | removal. | | | | + + + + + + + + | Specimen | + + | | + + + +---------+ + + | Performing | Address | City/[facility] | Phone Number | | Organization | | | | + +---------+ + + | [facility] DEPARTMENT OF | | | | | RADIOLOGY | | | | + +---------+ + + CHEST 2 VIEW (11/02/2005 11:09 AM PDT) + + + + + + | Component | Value | Ref Range | Performed | Pathologist | | | | | At | Signature | + + + + + + | CHEST, 2 | Radiologist 1: EDUARDO, | | | | | [place] | Ngoc HASSANEXAM:PA and | | | | | STEREO | lateral chest | | | | | | COMPARISON:10/31/05 | | | | | | FINDINGS:Right chest | | | | | | tube and central venous | | | | | | catheter remain inplace. | | | | | | There is improved | | | | | | aeration within the | | | | | | right lung withdecreased | | | | | | atelectasis. There is | | | | | | a small amount of | | | | | | residual rightpleural | | | | | | fluid. There are | | | | | | lucencies projecting | | | | | | medially on theright | | | | | | consistent with medial | | | | | | pneumothorax. There is | | | | | | minimallinear | | | | | | atelectasis at the left | | | | | | lung base. IMPRESSION: | | | | | | 1. Improved aeration | | | | | | with decreased right | | | | | | basilar atelectasis. 2. | | | | | | Persistent right | | | | | | medial pneumothorax. | | | | + + + + + + + + | Specimen | + + | | + + + +---------+ + + | Performing | Address | City/State/Zipcode | Phone Number | | Organization | | | | + +---------+ + + | [facility] DEPARTMENT OF | | | | | RADIOLOGY | | | | + +---------+ + + CBC ONLY WITH PLATELET (11/01/2005 6:52 AM PDT) + + + + + + | Component | Value | Ref Range | Performed | Pathologist | | | | | At | Signature | + + + + + + | WHITE CELL | 11.2 (H) | 4.4 - 11.0 K/cu | [facility] | | | COUNT | | mm | DEPARTMENT | | | | | | OF | | | | | | PATHOLOGY | | + + + + + + | RED CELL | 3.04 (L) | 4.00 - 5.20 | [facility] | | | COUNT | | M/cu mm | DEPARTMENT | | | | | | OF | | | | | | PATHOLOGY | | + + + + + + | HEMOGLOBIN | 8.9 (L) | 12.0 - 16.0 | [facility] | | | | | g/dL | DEPARTMENT | | | | | | OF | | | | | | PATHOLOGY | | + + + + + + | HEMATOCRIT | 26.1 (L) | 36.0 - 46.0 % | [facility] | | | | | | DEPARTMENT | | | | | | OF | | | | | | PATHOLOGY | | + + + + + + | MCV | 85.7 | 80.0 - 96.0 fL | [facility] | | | | | | DEPARTMENT | | | | | | OF | | | | | | PATHOLOGY | | + + + + + + | MCHC | 34.2 | 33.4 - 35.5 | [facility] | | | | | g/dL | DEPARTMENT | | | | | | OF | | | | | | PATHOLOGY | | + + + + + + | RDW | 16.0 (H) | 11.5 - 15.0 % | [facility] | | | | | | DEPARTMENT | | | | | | OF | | | | | | PATHOLOGY | | + + + + + + | PLATELET | 604 (H) | 150 - 400 K/cu | [facility] | | | COUNT [...] | + + + + + | [facility] | [facility] | [place] [address] | | | PATHOLOGY | [address] | | | + + + + + | [facility] | [facility] | [place] [address] | | | PATHOLOGY | [address] | | | + + + + + BASIC METABOLIC SET (11/01/2005 6:52 AM PDT) + +---------+ + + + [...] +---------+ + + + | SODIUM, | 133 (L) | 136 - 145 | [facility] | | | PLASMA | | mmol/L | DEPARTMENT | | | (LAB) | | | OF | | | | | | PATHOLOGY | | + +---------+ + + + | POTASSIUM, | 3.7 | 3.5 - 5.1 | [facility] | | | PLASMA | | mmol/L | DEPARTMENT | | | (LAB) | | | OF | | | | | | PATHOLOGY | | + +---------+ + + + | CHLORIDE, | 99 | 98 - 107 mmol/L | [facility] | | | PLASMA | | | DEPARTMENT | | | (LAB) | | | OF | | | | | | PATHOLOGY | | + +---------+ + + + | TOTAL CO2, | 30 (H) | 23 - 29 mmol/L | [facility] | | | PLASMA | | | DEPARTMENT | | | (LAB) | | | OF | | | | | | PATHOLOGY | | + +---------+ + + + | CALCIUM, | 9.2 | 8.5 - 10.5 | [facility] | [...] + | [facility] DEPARTMENT OF | [address] | [place] [address] | | | PATHOLOGY | [address] | | | + + + + + | [facility] DEPARTMENT OF | [address] | [place] [address] | | | PATHOLOGY | [address] | | | + + + + + BASIC METABOLIC SET (11/01/2005 6:01 AM PDT) + + + + + + | Component | Value | Ref Range | Performed | Pathologist | | | | | At | Signature | + + + + + + | GLUCOSE, | See cmnt | 65 - 110 mg/dL | [facility] | | | PLASMA | | | DEPARTMENT | | | (LAB) | | | OF | | | | | | PATHOLOGY | | + + + + + + | BUN, PLASMA | See cmnt | 6 - 20 mg/dL | [facility] | | | (LAB) | | | DEPARTMENT | | | | | | OF | | | | | | PATHOLOGY | | + + + + + + | CREATININE | See cmnt | 0.6 - 1.1 mg/dL | [facility] | | | PLASMA | | | DEPARTMENT | | | (LAB) | | | OF | | | | | | PATHOLOGY | | + + + + + + | SODIUM, | See cmnt | 136 - 145 | [facility] | | | PLASMA | | mmol/L | DEPARTMENT | | | (LAB) | | | OF | | | | | | PATHOLOGY | | + + + + + + | POTASSIUM, | See cmnt | 3.5 - 5.1 | [facility] | | | PLASMA | | mmol/L | DEPARTMENT | | | (LAB) | | | OF | | | | | | PATHOLOGY | | + + + + + + | CHLORIDE, | See cmnt | 98 - 107 mmol/L | [facility] | | | PLASMA | | | DEPARTMENT | | | (LAB) | | | OF | | | | | | PATHOLOGY | | + + + + + + | TOTAL CO2, | See cmnt | 23 - 29 mmol/L | [facility] | | | PLASMA | | | DEPARTMENT | | | (LAB) | | | OF | | | | | | PATHOLOGY | | + + + + + + | CALCIUM, | See cmnt | 8.5 - 10.5 | [facility] | | | PLASMA | | mg/dL | DEPARTMENT | | | (LAB) | | | OF | | | | | | PATHOLOGY | | + + + + + + | POTASSIUM | See cmnt | | [facility] | | | CMNT | | | DEPARTMENT | | | | | | OF | | | | | | PATHOLOGY | | + + + + + + + + | Specimen | + + | | + + + + + | Narrative | Performed At | + + + | Erroneous request. | [facility] | | | DEPARTMENT OF | | | PATHOLOGY | + + + + + + + + | Performing | Address | City/State/Zipcode | Phone Number | | Organization | | | | + + + + + | [facility] DEPARTMENT OF | [address] | [place] [address] | | | PATHOLOGY | [address] | | | + + + + + | [facility] DEPARTMENT OF | [address] | [place] [address] | | | PATHOLOGY | [address] | | | + + + + + CBC ONLY WITH PLATELET (11/01/2005 6:01 AM PDT) + + + + + + | Component | Value | Ref Range | Performed | Pathologist | | | | | At | Signature | + + + + + + | WHITE CELL | See cmnt | 4.4 - 11.0 K/cu | [facility] | | | COUNT | | mm | DEPARTMENT | | | | | | OF | | | | | | PATHOLOGY | | + + + + + + | RED CELL | See cmnt | 4.00 - 5.20 | [facility] | | | COUNT | | M/cu mm | DEPARTMENT | | | | | | OF | | | | | | PATHOLOGY | | + + + + + + | HEMOGLOBIN | See cmnt | 12.0 - 16.0 | [facility] | | | | | g/dL | DEPARTMENT | | | | | | OF | | | | | | PATHOLOGY | | + + + + + + | HEMATOCRIT | See cmnt | 36.0 - 46.0 % | [facility] | | | | | | DEPARTMENT | | | | | | OF | | | | | | PATHOLOGY | | + + + + + + | MCV | See cmnt | 80.0 - 96.0 fL | [facility] | | | | | | DEPARTMENT | | | | | | OF | | | | | | PATHOLOGY | | + + + + + + | MCHC | See cmnt | 33.4 - 35.5 | [facility] | | | | | g/dL | DEPARTMENT | | | | | | OF | | | | | | PATHOLOGY | | + + + + + + | RDW | See cmnt | 11.5 - 15.0 % | [facility] | | | | | | DEPARTMENT | | | | | | OF | | | | | | PATHOLOGY | | + + + + + + | PLATELET | See cmnt | 150 - 400 K/cu | [facility] | | | COUNT | | mm | DEPARTMENT | | | | | | OF | | | | | | PATHOLOGY | | + + + + + + + + | Specimen | + + | | + + + + + | Narrative | Performed At | + + + | Erroneous request. | [facility] | | | DEPARTMENT OF | | | PATHOLOGY | + + + + + + + + | Performing | Address | City/State/Zipcode | Phone Number | | Organization | | | | + + + + + | [facility] | [address] | [place] [address] | | | PATHOLOGY | [address] | | | + + + + + | [facility] | [address] | [place] [address] | | | PATHOLOGY | [address] | | | + + + + + CHEST 2 VIEW (10/31/2005 3:45 PM PDT) + + + + + + | Component | Value | Ref Range | Performed | Pathologist | | | | | At | Signature | + + + + + + | CHEST, 2 | Radiologist 1: DEANDRA, | | | | | VIEWS [place] | BRETT, | | | | | STEREO | M.D.-Radiologist 2: ELMO, | | | | | | AARONEXAM: AP and | | | | | | lateral chest 10-31-05. | | | | | | COMPARISON: Earlier same | | | | | | day. HISTORY: | | | | | | Respiratory distress. | | | | | | FINDINGS:One of the two | | | | | | apical chest tubes have | | | | | | been removed. The | | | | | | tworemaining right-sided | | | | | | chest tubes and other | | | | | | sport equipment | | | | | | remainunchanged in | | | | | | position. The | | | | | | cardiomediastinal | | | | | | contours are stable.Lung | | | | | | volumes are again low. | | | | | | Slight worsening of | | | | | | right pleuraleffusion is | | | | | | noted. There is no | | | | | | pneumothorax. | | | | | | Scattered areas | | | | | | ofatelectasis are seen | | | | | | bilaterally, right worse | | | | | | than left. | | | | | | IMPRESSION:1. | | | | | | Worsening right | | | | | | pleural effusion. 2. | | | | | | Scattered bilateral | | | | | | atelectasis, right worse | | | | | | than left. | | | | + + + + + + + + | Specimen | + + | | + + + +---------+ + + | Performing | Address | City/State/Zipcode | Phone Number | | Organization | | | | + +---------+ + + | [facility] DEPARTMENT OF | | | | | RADIOLOGY | | | | + +---------+ + + CHEST 2 VIEW (10/31/2005 10:25 AM PDT) + + + + + + | Component | Value | Ref Range | Performed | Pathologist | | | | | At | Signature | + + + + + + | CHEST, 2 | Radiologist 1: EDUARDO | | | | | [place] | Ngoc HASSAN-Radiologist | | | | | STEREO | 2: SHALONDA ANGEL: | | | | | | AP Chest COMPARISON: | | | | | | 10/30/05. CT scan from | | | | | | earlier today. FINDINGS: | | | | | | Two right chest tubes | | | | | | remain in place. Right | | | | | | internaljugular central | | | | | | venous catheter is | | | | | | unchanged position. | | | | | | Extensiveatelectasis | | | | | | of the right lung has | | | | | | increased. The | | | | | | cardiac andmediastinal | | | | | | contours are stable. | | | | | | There is mild | | | | | | atelectasis of theleft | | | | | | lower lobe, the left | | | | | | lung is otherwise clear. | | | | | | Osseousstructures are | | | | | | unremarkable. There is | | | | | | increased lucency | | | | | | mediallyon the right | | | | | | consistent with medial | | | | | | pneumothorax. | | | | | | IMPRESSION: 1. Increased | | | | | | right-sided atelectasis | | | | | | and same right | | | | | | pleuraleffusion. Two | | | | | | chest tubes remain in | | | | | | place without evidence | | | | | | ofexpanding | | | | | | pneumothorax. There is | | | | | | an increased air | | | | | | locatedmedially on the | | | | | | right consistent with | | | | | | increased | | | | | | medialpneumothorax. 2. | | | | | | Left lower lobe | | | | | | atelectasis, left lung | | | | | | is otherwise clear. 3. | | | | | | Stable support | | | | | | equipment. | | | | + + + + + + + + | Specimen | + + | | + + + +---------+ + + | Performing | Address | City/State/Zipcode | Phone Number | | Organization | | | | + +---------+ + + | [facility] DEPARTMENT OF | | | | | RADIOLOGY | | | | + +---------+ + + RENAL FUNCTION SET (10/31/2005 7:25 AM PDT) + +---------+ + + + | Component | Value | Ref Range | Performed | Pathologist | | | | | At | Signature | + +---------+ + + + | GLUCOSE, | 154 (H) | 65 - 110 mg/dL | [...] +---------+ + + + | ALBUMIN, | 2.3 (L) | 3.5 - 4.7 g/dL | [facility] | | | PLASMA | | | DEPARTMENT | | | (LAB) | | | OF | | | | | | PATHOLOGY | | + +---------+ + + + | CALCIUM, | 9.1 | 8.5 - 10.5 | [facility] | | | PLASMA | | mg/dL | DEPARTMENT | | | (LAB) | | | OF | | | | | | PATHOLOGY | | + +---------+ + + + | PHOSPHORUS, | 3.8 | 2.4 - 4.7 mg/dL | [facility] | | | PLASMA | | | DEPARTMENT | | | (LAB) | | | OF | | | | | | PATHOLOGY | | + +---------+ + + + | SODIUM, | 133 (L) | 136 - 145 | [facility] | | | PLASMA | | mmol/L | DEPARTMENT | | | (LAB) | | | OF | | | | | | PATHOLOGY | | + +---------+ + + + | POTASSIUM, | 4.3 | 3.5 - 5.1 | [facility] | | | PLASMA | | mmol/L | DEPARTMENT | | | (LAB) | | | OF | | | | | | PATHOLOGY | | + +---------+ + + + | CHLORIDE, | 98 | 98 - 107 mmol/L | [facility] | | | PLASMA | | | DEPARTMENT | | | (LAB) | | | OF | | | | | | PATHOLOGY | | + +---------+ + + + | TOTAL CO2, | 31 (H) | 23 - 29 mmol/L | [facility] [...] | + + + + + | [facility] DEPARTMENT OF | [facility] | [place] [address] | | | PATHOLOGY | [address] | | | + + + + + | [facility] DEPARTMENT OF | [facility] | [place] [address] | | | PATHOLOGY | [address] | | | + + + + + MAGNESIUM, PLASMA (10/31/2005 7:25 AM PDT) + +-------+ + + + | Component | Value | Ref Range | Performed | Pathologist | | | | | At | Signature | + +-------+ + + + | MAGNESIUM,P | 2.1 | 1.8 - 2.5 mg/dL | [facility] [...] | + + + + + | [facility] DEPARTMENT OF | [address] | [place] [address] | | | PATHOLOGY | [address] | | | + + + + + | [facility] DEPARTMENT OF | [address] | [place] [address] | | | PATHOLOGY | [address] | | | + + + + + CALCIUM, PLASMA (10/31/2005 7:25 AM PDT) + +-------+ + + + | Component | Value | Ref Range | Performed | Pathologist | | | | | At | Signature | + +-------+ + + + | CALCIUM, | 9.1 | 8.5 - 10.5 | [facility] | [...] | + + + + + | [facility] DEPARTMENT OF | [facility] | [place] [address] | | | PATHOLOGY | [address] | | | + + + + + | [facility] DEPARTMENT OF | [facility] | [place] [address] | | | PATHOLOGY | [address] | | | + + + + + CBC ONLY WITH PLATELET (10/31/2005 7:25 AM PDT) + + + + + + | Component | Value | Ref Range | Performed | Pathologist | | | | | At | Signature | + + + + + + | WHITE CELL | 11.7 (H) | 4.4 - 11.0 K/cu | [facility] | | | COUNT | | mm | DEPARTMENT | | | | | | OF | | | | | | PATHOLOGY | | + + + + + + | RED CELL | 2.96 (L) | 4.00 - 5.20 | [facility] | | | COUNT | | M/cu mm | DEPARTMENT | | | | | | OF | | | | | | PATHOLOGY | | + + + + + + | HEMOGLOBIN | 8.8 (L) | 12.0 - 16.0 | [facility] | | | | | g/dL | DEPARTMENT | | | | | | OF | | | | | | PATHOLOGY | | + + + + + + | HEMATOCRIT | 25.4 (L) | 36.0 - 46.0 % | [facility] | | | | | | DEPARTMENT | | | | | | OF | | | | | | PATHOLOGY | | + + + + + + | MCV | 85.8 | 80.0 - 96.0 fL | [facility] | | | | | | DEPARTMENT | | | | | | OF | | | | | | PATHOLOGY | | + + + + + + | MCHC | 34.8 | 33.4 - 35.5 | [facility] | | | | | g/dL | DEPARTMENT | | | | | | OF | | | | | | PATHOLOGY | | + + + + + + | RDW | 15.9 (H) | 11.5 - 15.0 % | [facility] | | | | | | DEPARTMENT | | | | | | OF | | | | | | PATHOLOGY | | + + + + + + | PLATELET | 566 (H) | 150 - 400 K/cu | [facility] | | | COUNT [...] | + + + + + | [facility] DEPARTMENT OF | [address] | [place] [address] | | | PATHOLOGY | [address] | | | + + + + + | [facility] DEPARTMENT OF | [address] | [place] [address] | | | PATHOLOGY | [address] | | | + + + + + TOTAL RESULTS FOR,URINE (10/30/2005 11:00 AM PDT) + + + + + + | Component | Value | Ref Range | Performed | Pathologist | | | | | At | Signature | + + + + + + | COLLECTION | 24.0Comment: | hr | [facility] | | | INTERVAL, | Normal values based on | | DEPARTMENT | | | UR | 24 Hrs. collection | | OF | | | | interval. Patient | | PATHOLOGY | | | | results are | | | | | | calculated from actual | | | | | | collection interval | | | | | | andvolume. | | | | + + + + + + | URINE | 1250 | mL | [facility] | | | VOLUME - | | | DEPARTMENT | | | [facility] | | | OF | | | | | | PATHOLOGY | | + + + + + + | COLLECTION | 10/29/05 | | [facility] | | | START DATE | | | DEPARTMENT | | | | | | OF | | | | | | PATHOLOGY | | + + + + + + | COLLECTION | 1100 | | [facility] | | | START TIME | | | DEPARTMENT | | | | | | OF | | | | | | PATHOLOGY | | + + + + + + + + | Specimen | + + | | + + + + + | Narrative | Performed At | + + + | Urine Chemistry Master | [facility] | | | DEPARTMENT OF | | | PATHOLOGY | + + + + + + + + | Performing | Address | City/State/Zipcode | Phone Number | | Organization | | | | + + + + + | [facility] | [address] | [place] [address] | | | PATHOLOGY | [address] | | | + + + + + | [facility] | [address] [place] [address] | [place] [address] | | | PATHOLOGY | [address] | | | + + + + + SODIUM TOTAL, URINE (10/30/2005 11:00 AM PDT) + +--------+ + + + | Component | Value | Ref Range | Performed | Pathologist | | | | | At | Signature | + +--------+ + + + | SODIUM, | 14 (L) | 40 - 220 | [facility] | | | URINE | | mmol/col.time | DEPARTMENT | | | | | | OF | | | | | | PATHOLOGY | | + +--------+ + + + | SODIUM CONC | 11 | mmol/L | [facility] | | | URINE | | | DEPARTMENT | | | | | | OF | | | | | | PATHOLOGY | | + +--------+ + + + + + | Specimen | + + | | + + + + + | Narrative | Performed At | + + + | Urine Chemistry Master | [facility] | | | DEPARTMENT OF | | | PATHOLOGY | + + + + + + + + | Performing | Address | City/State/Zipcode | Phone Number | | Organization | | | | + + + + + | [facility] DEPARTMENT OF | [address] | [place] [address] | | | PATHOLOGY | [address] | | | + + + + + | [facility] DEPARTMENT OF | [facility] | [place] [address] | | | PATHOLOGY | [address] | | | + + + + + OSMOLALITY, URINE SPOT (10/30/2005 11:00 AM PDT) + + + + + + | Component | Value | Ref Range | Performed | Pathologist | | | | | At | Signature | + + + + + + | OSMOLALITY | 551Comment: Reference | mOsm/Kg H2O | [facility] | | | URINE | Ranges: 50-1200 mOsm/kg | | DEPARTMENT | | | | H2O Random Urine | | OF | | | | 300-900 mOsm/kg H2O | | PATHOLOGY | | | | 24 Hr., average fluid | | | | | | intake >850 mOsm/kg | | | | | | H2O After 12 Hr. | | | | | | fluid restriction | | | | + + + + + + + + | Specimen | + + | | + + + + + + + | Performing | Address | City/State/Zipcode | Phone Number | | Organization | | | | + + + + + | [facility] DEPARTMENT | [address] | [place] [address] | | | PATHOLOGY | [address] | | | + + + + + | [facility] | [address] | [place] [address] | | | PATHOLOGY | [address] | | | + + + + + TOTAL RESULTS FOR,URINE (10/30/2005 11:00 AM PDT) + + + + + + | Component | Value | Ref Range | Performed | Pathologist | | | | | At | Signature | + + + + + + | COLLECTION | 24.0Comment: | hr | [facility] | | | INTERVAL, | Normal values based on | | DEPARTMENT | | | UR | 24 Hrs. collection | | OF | | | | interval. Patient | | PATHOLOGY | | | | results are | | | | | | calculated from actual | | | | | | collection interval | | | | | | andvolume. | | | | + + + + + + | URINE | 1250 | mL | [facility] | | | VOLUME - | | | DEPARTMENT | | | [facility] | | | OF | | | | | | PATHOLOGY | | + + + + + + | COLLECTION | 10/29/05 | | [facility] | | | START DATE | | | DEPARTMENT | | | | | | OF | | | | | | PATHOLOGY | | + + + + + + | COLLECTION | 1100 | | [facility] | | | START TIME | | | DEPARTMENT | | | | | | OF | | | | | | PATHOLOGY | | + + + + + + + + | Specimen | + + | | + + + + + | Narrative | Performed At | + + + | Urine Chemistry Master | [facility] | | | DEPARTMENT OF | | | PATHOLOGY | + + + + + + + + | Performing | Address | City/State/Zipcode | Phone Number | | Organization | | | | + + + + + | [facility] DEPARTMENT OF | [address] | [place] [address] | | | PATHOLOGY | [address] | | | + + + + + | [facility] DEPARTMENT OF | [address] | [place] [address] | | | PATHOLOGY | [address] | | | + + + + + CREATININE, URINE (10/30/2005 11:00 AM PDT) + + + + + + | Component | Value | Ref Range | Performed | Pathologist | | | | | At | Signature | + + + + + + | CREATININE, | 2.31 (H) | 0.60 - 1.60 | [facility] | | | URINE | | g/col. time | DEPARTMENT | | | | | | OF | | | | | | PATHOLOGY | | + + + + + + | CREATININE | 184.7 | mg/dL | [facility] | | | CONC UR | | | DEPARTMENT | | | | | | OF | | | | | | PATHOLOGY | | + + + + + + + + | Specimen | + + | | + + + + + | Narrative | Performed At | + + + | Urine Chemistry Master | [facility] | | | DEPARTMENT OF | | | PATHOLOGY | + + + + + + + + | Performing | Address | City/State/Zipcode | Phone Number | | Organization | | | | + + + + + | [facility] | [address] | [place] [address] | | | PATHOLOGY | [address] | | | + + + + + | [facility] | [address] | [place] [address] | | | PATHOLOGY | [address] | | | + + + + + CHEST 2 VIEW (10/30/2005 10:22 AM PDT) + + + + + + | Component | Value | Ref Range | Performed | Pathologist | | | | | At | Signature | + + + + + + | CHEST, 2 | Radiologist 1: EDUARDO, | | | | | [place]IE[place] | Ngoc HASSANEXAM:AP and | | | | | STEREO | lateral chest | | | | | | COMPARISON:10/29/05 | | | | | | FINDINGS:Three right | | | | | | chest tubes and right | | | | | | jugular venous | | | | | | catheterremain in place. | | | | | | There is a small | | | | | | residual right | | | | | | pleuraleffusion. There | | | | | | is extensive | | | | | | atelectasis within the | | | | | | right lung.There is | | | | | | minimal left basilar | | | | | | atelectasis. There is | | | | | | nopneumothorax. | | | | | | IMPRESSION: 1. Small | | | | | | right pleural effusion | | | | | | with extensive | | | | | | atelectasis withinthe | | | | | | right lung. There is | | | | | | also minimal left | | | | | | basilar atelectasis. | | | | + + + + + + + + | Specimen | + + | | + + + +---------+ + + | Performing | Address | City/State/Zipcode | Phone Number | | Organization | | | | + +---------+ + + | [facility] DEPARTMENT OF | | | | | RADIOLOGY | | | | + +---------+ + + BASIC METABOLIC SET (10/30/2005 7:14 AM PDT) + +-------+ + + + | Component | Value | Ref Range | Performed | Pathologist | | | | | At | Signature | + +-------+ + + + | GLUCOSE, | 84 | 65 - 110 mg/dL | [facility] | | | PLASMA | | | DEPARTMENT | | | (LAB) | | | OF | | | | | | PATHOLOGY | | + +-------+ + + + | BUN, PLASMA | 7 | 6 - 20 mg/dL | [facility] | | | (LAB) | | | DEPARTMENT | | | | | | OF | | | | | | PATHOLOGY | | + +-------+ + + + | CREATININE | 0.6 | 0.6 - 1.1 mg/dL | [facility] | | | PLASMA | | | DEPARTMENT | | | (LAB) | | | OF | | | | | | PATHOLOGY | | + +-------+ + + + | SODIUM, | 136 | 136 - 145 | [facility] | | | PLASMA | | mmol/L | DEPARTMENT | | | (LAB) | | | OF | | | | | | PATHOLOGY | | + +-------+ + + + | POTASSIUM, | 3.7 | 3.5 - 5.1 | [facility] | | | PLASMA | | mmol/L | DEPARTMENT | | | (LAB) | | | OF | | | | | | PATHOLOGY | | + +-------+ + + + | CHLORIDE, | 101 | 98 - 107 mmol/L | [facility] | | | PLASMA | | | DEPARTMENT | | | (LAB) | | | OF | | | | | | PATHOLOGY | | + +-------+ + + + | TOTAL CO2, | 29 | 23 - 29 mmol/L | [facility] | | | PLASMA | | | DEPARTMENT | | | (LAB) | | | OF | | | | | | PATHOLOGY | | + +-------+ + + + | CALCIUM, | 8.6 | 8.5 - 10.5 | [facility] | [...] + | [facility] DEPARTMENT OF | [address] | [place] [address] | | | PATHOLOGY | [address] | | | + + + + + | [facility] DEPARTMENT OF | [address] | [place] [address] | | | PATHOLOGY | [address] | | | + + + + + CBC ONLY WITH PLATELET (10/30/2005 7:14 AM PDT) + + + + + + | Component | Value | Ref Range | Performed | Pathologist | | | | | At | Signature | + + + + + + | WHITE CELL | 15.1 (H) | 4.4 - 11.0 K/cu | [facility] | | | COUNT | | mm | DEPARTMENT | | | | | | OF | | | | | | PATHOLOGY | | + + + + + + | RED CELL | 3.04 (L) | 4.00 - 5.20 | [facility] | | | COUNT | | M/cu mm | DEPARTMENT | | | | | | OF | | | | | | PATHOLOGY | | + + + + + + | HEMOGLOBIN | 9.0 (L) | 12.0 - 16.0 | [facility] | | | | | g/dL | DEPARTMENT | | | | | | OF | | | | | | PATHOLOGY | | + + + + + + | HEMATOCRIT | 26.6 (L) | 36.0 - 46.0 % | [facility] | | | | | | DEPARTMENT | | | | | | OF | | | | | | PATHOLOGY | | + + + + + + | MCV | 87.4 | 80.0 - 96.0 fL | [facility] | | | | | | DEPARTMENT | | | | | | OF | | | | | | PATHOLOGY | | + + + + + + | MCHC | 33.8 | 33.4 - 35.5 | [facility] | | | | | g/dL | DEPARTMENT | | | | | | OF | | | | | | PATHOLOGY | | + + + + + + | RDW | 15.5 (H) | 11.5 - 15.0 % | [facility] | | | | | | DEPARTMENT | | | | | | OF | | | | | | PATHOLOGY | | + + + + + + | PLATELET | 482 (H) | 150 - 400 K/cu | [facility] | | | COUNT [...] + | [facility] DE[facility]MENT OF | [address] | [place] [address] | | | PATHOLOGY | [address] | | | + + + + + | [facility] DEPARTMENT OF | [address] | [place] [address] | | | PATHOLOGY | [address] | | | + + + + + CALCIUM, PLASMA (10/30/2005 7:14 AM PDT) + +-------+ + + + | Component | Value | Ref Range | Performed | Pathologist | | | | | At | Signature | + +-------+ + + + | CALCIUM, | 8.6 | 8.5 - 10.5 | [facility] | [...] | + + + + + | [facility] DEPARTMENT OF | [address] | [place] [address] | | | PATHOLOGY | [address] | | | + + + + + | [facility] DEPARTMENT OF | [address] | [place] [address] | | | PATHOLOGY | [address] | | | + + + + + RENAL FUNCTION SET (10/30/2005 7:14 AM PDT) + +---------+ + + + | Component | Value | Ref Range | Performed | Pathologist | | | | | At | Signature | + +---------+ + + + | GLUCOSE, | 84 | 65 - 110 mg/dL | [facility] [...] +---------+ + + + | ALBUMIN, | 2.2 (L) | 3.5 - 4.7 g/dL | [facility] | | | PLASMA | | | DEPARTMENT | | | (LAB) | | | OF | | | | | | PATHOLOGY | | + +---------+ + + + | CALCIUM, | 8.6 | 8.5 - 10.5 | [facility] | | | PLASMA | | mg/dL | DEPARTMENT | | | (LAB) | | | OF | | | | | | PATHOLOGY | | + +---------+ + + + | PHOSPHORUS, | 3.8 | 2.4 - 4.7 mg/dL | [facility] | | | PLASMA | | | DEPARTMENT | | | (LAB) | | | OF | | | | | | PATHOLOGY | | + +---------+ + + + | SODIUM, | 136 | 136 - 145 | [facility] | | | PLASMA | | mmol/L | DEPARTMENT | | | (LAB) | | | OF | | | | | | PATHOLOGY | | + +---------+ + + + | POTASSIUM, | 3.7 | 3.5 - 5.1 | [facility] | | | PLASMA | | mmol/L | DEPARTMENT | | | (LAB) | | | OF | | | | | | PATHOLOGY | | + +---------+ + + + | CHLORIDE, | 101 | 98 - 107 mmol/L | [facility] | | | PLASMA | | | DEPARTMENT | | | (LAB) | | | OF | | | | | | PATHOLOGY | | + +---------+ + + + | TOTAL CO2, | 29 | 23 - 29 mmol/L | [facility] [...] | + + + + + | [facility] | [address] | [place] [address] | | | PATHOLOGY | [address] | | | + + + + + | [facility] | [address] | [place] [address] | | | PATHOLOGY | [address] | | | + + + + + MAGNESIUM, PLASMA (10/30/2005 7:14 AM PDT) + +-------+ + + + | Component | Value | Ref Range | Performed | Pathologist | | | | | At | Signature | + +-------+ + + + | MAGNESIUM,P | 2.1 | 1.8 - 2.5 mg/dL | [facility] [...] | + + + + + | [facility] DEPARTMENT OF | [address] | [place] [address] | | | PATHOLOGY | [address] | | | + + + + + | [facility] DEPARTMENT OF | [address] | [place] [address] | | | PATHOLOGY | [address] | | | + + + + + OSMOLALITY, PLASMA (10/29/2005 6:50 AM PDT) + +-------+ + + + | Component | Value | Ref Range | Performed | Pathologist | | | | | At | Signature | + +-------+ + + + | OSMOLALITY | 283 | 275 - 295 | [facility] | | | | | mOsm/kg H20 | DEPARTMENT | | | | | | OF | | | | | | PATHOLOGY | | + +-------+ + + + + + | Specimen | + + | | + + + + + + + | Performing | Address | City/State/Zipcode | Phone Number | | Organization | | | | + + + + + | [facility] DEPARTMENT | [address] | [place] [address] | | | PATHOLOGY | [address] | | | + + + + + | [facility] DEPARTMENT OF | [address] | [place] [address] | | | PATHOLOGY | [address] | | | + + + + + BASIC METABOLIC SET (10/29/2005 6:50 AM PDT) + +---------+ + + + | Component | Value | Ref Range | Performed | Pathologist | | | | | At | Signature | + +---------+ + + + | GLUCOSE, | Err req | 65 - 110 mg/dL | [facility] | | | PLASMA | | | DEPARTMENT | | | (LAB) | | | OF | | | | | | PATHOLOGY | | + +---------+ + + + | BUN, PLASMA | Err req | 6 - 20 mg/dL | [facility] | | | (LAB) | | | DEPARTMENT | | | | | | OF | | | | | | PATHOLOGY | | + +---------+ + + + | CREATININE | Err req | 0.6 - 1.1 mg/dL | [facility] | | | PLASMA | | | DEPARTMENT | | | (LAB) | | | OF | | | | | | PATHOLOGY | | + +---------+ + + + | SODIUM, | Err req | 136 - 145 | [facility] | | | PLASMA | | mmol/L | DEPARTMENT | | | (LAB) | | | OF | | | | | | PATHOLOGY | | + +---------+ + + + | POTASSIUM, | Err req | 3.5 - 5.1 | [facility] | | | PLASMA | | mmol/L | DEPARTMENT | | | (LAB) | | | OF | | | | | | PATHOLOGY | | + +---------+ + + + | CHLORIDE, | Err req | 98 - 107 mmol/L | [facility] | | | PLASMA | | | DEPARTMENT | | | (LAB) | | | OF | | | | | | PATHOLOGY | | + +---------+ + + + | TOTAL CO2, | Err req | 23 - 29 mmol/L | [facility] | | | PLASMA | | | DEPARTMENT | | | (LAB) | | | OF | | | | | | PATHOLOGY | | + +---------+ + + + | CALCIUM, | Err req | 8.5 - 10.5 | [facility] | [...] | + + + + + | [facility] | [facility] | [place] [address] | | | PATHOLOGY | [address] | | | + + + + + | [facility] | [address] [place] [address] | [place] [address] | | | PATHOLOGY | [address] | | | + + + + + MAGNESIUM, PLASMA (10/29/2005 6:50 AM PDT) + +-------+ + + + | Component | Value | Ref Range | Performed | Pathologist | | | | | At | Signature | + +-------+ + + + | MAGNESIUM,P | 2.2 | 1.8 - 2.5 mg/dL | [facility] [...] | + + + + + | [facility] DEPARTMENT OF | [address] | [place] [address] | | | PATHOLOGY | [address] | | | + + + + + | [facility] DEPARTMENT | [address] | [place] [address] | | | PATHOLOGY | [address] | | | + + + + + CALCIUM, PLASMA (10/29/2005 6:50 AM PDT) + +---------+ + + + | Component | Value | Ref Range | Performed | Pathologist | | | | | At | Signature | + +---------+ + + + | CALCIUM, | 8.4 (L) | 8.5 - 10.5 | [facility] | [...] | + + + + + | [facility] DEPARTMENT | [address] [place] [address] | [place] [address] | | | PATHOLOGY | [address] | | | + + + + + | [facility] | [address] [place] [address] | [place] [address] | | | PATHOLOGY | [address] | | | + + + + + RENAL FUNCTION SET (10/29/2005 6:50 AM PDT) + +---------+ + + + | Component | Value | Ref Range | Performed | Pathologist | | | | | At | Signature | + +---------+ + + + | GLUCOSE, | 135 (H) | 65 - 110 mg/dL | [facility] | | | PLASMA | | | DEPARTMENT | | | (LAB) | | | OF | | | | | | PATHOLOGY | | + +---------+ + + + | BUN, PLASMA | 6 | 6 - 20 mg/dL | [facility] | | | (LAB) | | | DEPARTMENT | | | | | | OF | | | | | | PATHOLOGY | | + +---------+ + + + | CREATININE | 0.7 | 0.6 - 1.1 mg/dL | [facility] | | | PLASMA | | | DEPARTMENT | | | (LAB) | | | OF | | | | | | PATHOLOGY | | + +---------+ + + + | ALBUMIN, | 2.2 (L) | 3.5 - 4.7 g/dL | [facility] | | | PLASMA | | | DEPARTMENT | | | (LAB) | | | OF | | | | | | PATHOLOGY | | + +---------+ + + + | CALCIUM, | 8.4 (L) | 8.5 - 10.5 | [facility] | | | PLASMA | | mg/dL | DEPARTMENT | | | (LAB) | | | OF | | | | | | PATHOLOGY | | + +---------+ + + + | PHOSPHORUS, | 3.2 | 2.4 - 4.7 mg/dL | [facility] | | | PLASMA [...] +---------+ + + + | POTASSIUM, | 3.7 | 3.5 - 5.1 | [facility] | | | PLASMA | | mmol/L | DEPARTMENT | | | (LAB) | | | OF | | | | | | PATHOLOGY | | + +---------+ + + + | CHLORIDE, | 100 | 98 - 107 mmol/L | [facility] | | | PLASMA | | | DEPARTMENT | | | (LAB) | | | OF | | | | | | PATHOLOGY | | + +---------+ + + + | TOTAL CO2, | 27 | 23 - 29 mmol/L | [facility] [...] + | [facility] DEPARTMENT OF | [address] | [place] [address] | | | PATHOLOGY | [address] | | | + + + + + | [facility] DEPARTMENT OF | [address] | [place] [address] | | | PATHOLOGY | [address] | | | + + + + + CBC ONLY WITH PLATELET (10/29/2005 6:50 AM PDT) + + + + + + | Component | Value | Ref Range | Performed | Pathologist | | | | | At | Signature | + + + + + + | WHITE CELL | 17.4 (H) | 4.4 - 11.0 K/cu | [facility] | | | COUNT | | mm | DEPARTMENT | | | | | | OF | | | | | | PATHOLOGY | | + + + + + + | RED CELL | 3.04 (L) | 4.00 - 5.20 | [facility] | | | COUNT | | M/cu mm | DEPARTMENT | | | | | | OF | | | | | | PATHOLOGY | | + + + + + + | HEMOGLOBIN | 9.2 (L) | 12.0 - 16.0 | [facility] | | | | | g/dL | DEPARTMENT | | | | | | OF | | | | | | PATHOLOGY | | + + + + + + | HEMATOCRIT | 26.6 (L) | 36.0 - 46.0 % | [facility] | | | | | | DEPARTMENT | | | | | | OF | | | | | | PATHOLOGY | | + + + + + + | MCV | 87.7 | 80.0 - 96.0 fL | [facility] | | | | | | DEPARTMENT | | | | | | OF | | | | | | PATHOLOGY | | + + + + + + | MCHC | 34.4 | 33.4 - 35.5 | [facility] | | | | | g/dL | DEPARTMENT | | | | | | OF | | | | | | PATHOLOGY | | + + + + + + | RDW | 15.8 (H) | 11.5 - 15.0 % | [facility] | | | | | | DEPARTMENT | | | | | | OF | | | | | | PATHOLOGY | | + + + + + + | PLATELET | 484 (H) | 150 - 400 K/cu | [facility] | | | COUNT [...] | + + + + + | [facility] | [address] | [place] [address] | | | PATHOLOGY | [address] | | | + + + + + | [facility] | [address] | [place] [address] | | | PATHOLOGY | [address] | | | + + + + + CHEST 1 VIEW (10/29/2005 12:02 AM PDT) + + + + + + | Component | Value | Ref Range | Performed | Pathologist | | | | | At | Signature | + + + + + + | CHEST, 1 | Radiologist 1: HORACIO, | | | | | VIEW | REGGIE Gunn, | | | | | | M.D.COMPARISON: October | | | | | | 2005. FINDINGS: AP | | | | | | chest submitted. | | | | | | Support equipment is | | | | | | stable.There is | | | | | | bibasilar atelectasis. | | | | | | Possible small | | | | | | right-sidedpleural | | | | | | effusion is noted. | | | | | | Lung volumes are low. | | | | | | Cardiacsilhouette is | | | | | | unchanged. IMPRESSION: | | | | | | Low lung volumes with | | | | | | right greater than left | | | | | | bibasilaratelectasis is | | | | | | slightly worse than | | | | | | prior study. No | | | | | | enlargingpneumothorax. | | | | + + + + + + + + | Specimen | + + | | + + + +---------+ + + | Performing | Address | City/State/Zipcode | Phone Number | | Organization | | | | + +---------+ + + | [facility] DEPARTMENT OF | | | | | RADIOLOGY | | | | + +---------+ + + CHEST 1 VIEW (10/28/2005 5:00 AM PDT) + + + + + + | Component | Value | Ref Range | Performed | Pathologist | | | | | At | Signature | + + + + + + | CHEST, 1 | Radiologist 1: ALESSANDRO, | | | | | VIEW | VIOLET CuevasEXAM: AP | | | | | | chest. COMPARISON: | | | | | | 10/27/05 INDICATION: | | | | | | Follow up decortication | | | | | | procedure FINDINGS: | | | | | | The endotracheal tube | | | | | | and NG tube have been | | | | | | removed.The bibasilar | | | | | | and right upper lobe | | | | | | areas of atelectasis | | | | | | haveimproved, but not | | | | | | resolved. Cardiac | | | | | | silhouette is normal in | | | | | | thereis no pulmonary | | | | | | edema. The three | | | | | | right-sided Chest tubes | | | | | | remainin good position | | | | | | and there is no | | | | | | pneumothorax. Mild | | | | | | pleuralthickening is | | | | | | present, consistent with | | | | | | the patient's history. | | | | | | IMPRESSION: 1. | | | | | | Improvement in the | | | | | | bilaterally symmetric | | | | | | areas of atelectasis.No | | | | | | recurrent pneumothorax. | | | | | | | | | | + + + + + + + + | Specimen | + + | | + + + +---------+ + + | Performing | Address | City/State/Zipcode | Phone Number | | Organization | | | | + +---------+ + + | [facility] DEPARTMENT OF | | | | | RADIOLOGY | | | | + +---------+ + + MANUAL DIFFERENTIAL (10/28/2005 3:15 AM PDT) + + + + + + | Component | Value | Ref Range | Performed | Pathologist | | | | | At | Signature | + + + + + + | PLATELET | INCREASED | | [facility] | | | ESTIMATE | | | DEPARTMENT | | | | | | OF | | | | | | PATHOLOGY | | + + + + + + + + | Specimen | + + | | + + + + + | Narrative | Performed At | + + + | * Corrected 10/28/05 05:23: ISRAELNEL COMMENTS, prev report: Slide | [facility] | | review pending. | DEPARTMENT OF | | | PATHOLOGY | + + + + + + + + | Performing | Address | City/State/Zipcode | Phone Number | | Organization | | | | + + + + + | [facility] DEPARTMENT | [facility] | [place] [address] | | | PATHOLOGY | [address] | | | + + + + + | [facility] DEPARTMENT OF | [facility] | [place] [address] | | | PATHOLOGY | [address] | | | + + + + + EXTENDED DIFF (10/28/2005 3:15 AM PDT) + +---------+ + + + | Component | Value | Ref Range | Performed | Pathologist | | | | | At | Signature | + +---------+ + + + | METAMYELOCY | 1 | % | [facility] | | | [place]HELSEA % | | | DEPARTMENT | | | | | | OF | | | | | | PATHOLOGY | | + +---------+ + + + | MYELOCYTES | 0 | % | [facility] | | | % | | | DEPARTMENT | | | | | | OF | | | | | | PATHOLOGY | | + +---------+ + + + | NRBC | 0 | <1 /100 WBC | [facility] | | | | | | DEPARTMENT | | | | | | OF | | | | | | PATHOLOGY | | + +---------+ + + + | BANDS # | 1.4 (H) | 0.0 - 1.1 | [facility] | | | | | | DEPARTMENT | | | | | | OF | | | | | | PATHOLOGY | | + +---------+ + + + | BANDS % | 8 | <11 % | [facility] | | | | | | DEPARTMENT | | | | | | OF | | | | | | PATHOLOGY | | + +---------+ + + + | ATYPICAL | 0 | | [facility] | | | CELL % | | | DEPARTMENT | | | | | | OF | | | | | | PATHOLOGY | | + +---------+ + + + | PROMYELOCYT | 0 | % | [facility] | | | ES % | | | DEPARTMENT | | | | | | OF | | | | | | PATHOLOGY | | + +---------+ + + + + + | Specimen | + + | | + + + + + | Narrative | Performed At | + + + | * Corrected 10/28/05 05:23: SALVADOR COMMENTS, prev report: Slide | [facility] | | review pending. | DEPARTMENT OF | | | PATHOLOGY | + + + + + + + + | Performing | Address | City/State/Zipcode | Phone Number | | Organization | | | | + + + + + | [facility] | [address] | [place] [address] | | | PATHOLOGY | [address] | | | + + + + + | [facility] DEPARTMENT OF | [address] | [place] [address] | | | PATHOLOGY | [address] | | | + + + + + RENAL FUNCTION SET (10/28/2005 3:15 AM PDT) + +---------+ + + + | Component | Value | Ref Range | Performed | Pathologist | | | | | At | Signature | + +---------+ + + + | GLUCOSE, | 58 (L) | 65 - 110 mg/dL | [facility] | | | PLASMA | | | DEPARTMENT | | | (LAB) | | | OF | | | | | | PATHOLOGY | | + +---------+ + + + | BUN, PLASMA | 6 | 6 - 20 mg/dL | [facility] [...] +---------+ + + + | ALBUMIN, | 2.1 (L) | 3.5 - 4.7 g/dL | [facility] | | | PLASMA | | | DEPARTMENT | | | (LAB) | | | OF | | | | | | PATHOLOGY | | + +---------+ + + + | CALCIUM, | 8.4 (L) | 8.5 - 10.5 | [facility] | | | PLASMA | | mg/dL | DEPARTMENT | | | (LAB) | | | OF | | | | | | PATHOLOGY | | + +---------+ + + + | PHOSPHORUS, | 4.4 | 2.4 - 4.7 mg/dL | [facility] | | | PLASMA [...] +---------+ + + + | POTASSIUM, | 3.5 | 3.5 - 5.1 | [facility] | | | PLASMA | | mmol/L | DEPARTMENT | | | (LAB) | | | OF | | | | | | PATHOLOGY | | + +---------+ + + + | CHLORIDE, | 96 (L) | 98 - 107 mmol/L | [facility] | | | PLASMA | | | DEPARTMENT | | | (LAB) | | | OF | | | | | | PATHOLOGY | | + +---------+ + + + | TOTAL CO2, | 29 | 23 - 29 mmol/L | [facility] [...] | + + + + + | [facility] | [facility] | [place] [address] | | | PATHOLOGY | [address] | | | + + + + + | [facility] DEPARTMENT OF | [facility] | [place] [address] | | | PATHOLOGY | [address] | | | + + + + + MAGNESIUM, PLASMA (10/28/2005 3:15 AM PDT) + +---------+ + + + | Component | Value | Ref Range | Performed | Pathologist | | | | | At | Signature | + +---------+ + + + | MAGNESIUM,P | 1.4 (L) | 1.8 - 2.5 mg/dL | [...] + | [facility]PARTMENT [facility] | [address] | [place] [address] | | | PATHOLOGY | [address] | | | + + + + + | [facility] DEPARTMENT OF | [address] | [place] [address] | | | PATHOLOGY | [address] | | | + + + + + DIFFERENTIAL (10/28/2005 3:15 AM PDT) + + + + + + | Component | Value | Ref Range | Performed | Pathologist | | | | | At | Signature | + + + + + + | NEUTROPHIL | 80 (H) | 50 - 70 % | [facility] | | | % | | | DEPARTMENT | | | | | | OF | | | | | | PATHOLOGY | | + + + + + + | LYMPHOCYTE | 8 (L) | 18 - 42 % | [facility] | | | % | | | DEPARTMENT | | | | | | OF | | | | | | PATHOLOGY | | + + + + + + | MONOCYTE % | 3 | 2 - 8 % | [facility] | | | | | | DEPARTMENT | | | | | | OF | | | | | | PATHOLOGY | | + + + + + + | EOS % | 0 (L) | 1 - 3 % | [facility] | | | | | | DEPARTMENT | | | | | | OF | | | | | | PATHOLOGY | | + + + + + + | BASO % | 0 | <3 % | [facility] | | | | | | DEPARTMENT | | | | | | OF | | | | | | PATHOLOGY | | + + + + + + | NEUTROPHIL | 13.9 (H) | 1.8 - 7.7 K/cu | [facility] | | | # | | mm | DEPARTMENT | | | | | | OF | | | | | | PATHOLOGY | | + + + + + + | LYMPHOCYTE | 1.4 | 1.0 - 4.8 K/cu | [facility] | | | # | | mm | DEPARTMENT | | | | | | OF | | | | | | PATHOLOGY | | + + + + + + | MONOCYTE # | 0.5 | 0.1 - 0.6 K/cu | [facility] | | | | | mm | DEPARTMENT | | | | | | OF | | | | | | PATHOLOGY | | + + + + + + | EOS # | 0.0 | <0.6 K/cu mm | [facility] | | | | | | DEPARTMENT | | | | | | OF | | | | | | PATHOLOGY | | + + + + + + | BASO # | [...] Performed At | + + + | * Corrected 10/28/05 05:23: HPANEL COMMENTS, prev report: Slide | [facility] | | review pending. | DEPARTMENT OF | | | PATHOLOGY | + + + + + + + + | Performing | Address | City/State/Zipcode | Phone Number | | Organization | | | | + + + + + | [facility] | [address] | [place] [address] | | | PATHOLOGY | [address] | | | + + + + + | [facility] | [address] | [place] [address] | | | PATHOLOGY | [address] | | | + + + + + CBC, WITH DIFFERENTIAL (10/28/2005 3:15 AM PDT) + + + + + + | Component | Value | Ref Range | Performed | Pathologist | | | | | At | Signature | + + + + + + | WHITE CELL | 17.4 (H) | 4.4 - 11.0 K/cu | [facility] | | | COUNT | | mm | DEPARTMENT | | | | | | OF | | | | | | PATHOLOGY | | + + + + + + | RED CELL | 3.24 (L) | 4.00 - 5.20 | [facility] | | | COUNT | | M/cu mm | DEPARTMENT | | | | | | OF | | | | | | PATHOLOGY | | + + + + + + | HEMOGLOBIN | 9.6 (L) | 12.0 - 16.0 | [facility] | | | | | g/dL | DEPARTMENT | | | | | | OF | | | | | | PATHOLOGY | | + + + + + + | HEMATOCRIT | 28.3 (L) | 36.0 - 46.0 % | [facility] | | | | | | DEPARTMENT | | | | | | OF | | | | | | PATHOLOGY | | + + + + + + | MCV | 87.2 | 80.0 - 96.0 fL | [facility] | | | | | | DEPARTMENT | | | | | | OF | | | | | | PATHOLOGY | | + + + + + + | MCHC | 34.1 | 33.4 - 35.5 | [facility] | | | | | g/dL | DEPARTMENT | | | | | | OF | | | | | | PATHOLOGY | | + + + + + + | RDW | 16.0 (H) | 11.5 - 15.0 % | [facility] | | | | | | DEPARTMENT | | | | | | OF | | | | | | PATHOLOGY | | + + + + + + | PLATELET | 520 (H) | 150 - 400 K/cu | [facility] | | | COUNT | | mm | DEPARTMENT | | | | | | OF | | | | | | PATHOLOGY | | + + + + + + | DIFF | Final Manual | | [facility] | | | COMMENTS | Differential Report. | | DEPARTMENT | | | | | | OF | | | | | | PATHOLOGY | | + + + + + + | RBC | Anisocytosis + | | [facility] | | | MORPHOLOGY | | | DEPARTMENT | | | | | | OF | | | | | | PATHOLOGY | | + + + + + + + + | Specimen | + + | | + + + + + | Narrative | Performed At | + + + | * Corrected 10/28/05 05:23: ISRAELNEL COMMENTS, prev report: Slide | [facility] | | review pending. | DEPARTMENT OF | | | PATHOLOGY | + + + + + + + + | Performing | Address | City/State/Zipcode | Phone Number | | Organization | | | | + + + + + | [facility] DEPARTMENT OF | [address] | [place], [place] [address] | | | PATHOLOGY | [address] | | | + + + + + | [facility] DEPARTMENT OF | [address] | [place] [address] | | | PATHOLOGY | [address] | | | + + + + + BLOOD GASES, ARTERIAL (10/28/2005 12:20 AM PDT) + + + + + + | Component | Value | Ref Range | Performed | Pathologist | | | | | At | Signature | + + + + + + | PAT TEMP | 37.2 | Degree C | [facility] | | | ARTERIAL | | | DEPARTMENT | | | | | | OF | | | | | | PATHOLOGY | | + + + + + + | FIO2 | .5 | | [facility] | | | ARTERIAL | | | DEPARTMENT | | | | | | OF | | | | | | PATHOLOGY | | + + + + + + | PH ARTERIAL | 7.40 | 7.37 - 7.44 | [facility] | | | | | | DEPARTMENT | | | | | | OF | | | | | | PATHOLOGY | | + + + + + + | PCO2 | 45 (H) | 32 - 43 mmHg | [facility] | | | ARTERIAL | | | DEPARTMENT | | | | | | OF | | | | | | PATHOLOGY | | + + + + + + | PO2 | 152 (H) | 83 - 108 mmHg | [facility] | | | ARTERIAL | | | DEPARTMENT | | | | | | OF | | | | | | PATHOLOGY | | + + + + + + | BASE EXCESS | 3.0 | | [facility] | | | ARTERIAL | | | DEPARTMENT | | | | | | OF | | | | | | PATHOLOGY | | + + + + + + | HCO3 | 28 (H) | 21 - 27 mmol/L | [facility] | | | ARTERIAL | | | DEPARTMENT | | | | | | OF | | | | | | PATHOLOGY | | + + + + + + | TOTAL CO2 | 29 (H) | 22 - 28 mmol/L | [facility] | | | ARTERIAL | | | DEPARTMENT | | | | | | OF | | | | | | PATHOLOGY | | + + + + + + | O2 SAT, | 99.3 (H) | 92.0 - 98.0 % | [facility] | | | ARTERIAL | | | DEPARTMENT | | | | | | OF | | | | | | PATHOLOGY | | + + + + + + + + | Specimen | + + | | + + + + + | Narrative | Performed At | + + + | Arterial Blood Gas | [facility] | | | DEPARTMENT OF | | | PATHOLOGY | + + + + + + + + | Performing | Address | City/State/Zipcode | Phone Number | | Organization | | | | + + + + + | [facility] | [address] | [place] [address] | | | PATHOLOGY | [address] | | | + + + + + | [facility] | [address] [place] [address] | [place] [address] | | | PATHOLOGY | [address] | | | + + + + + BLOOD GASES, ARTERIAL (10/27/2005 7:35 PM PDT) + + + + + + | Component | Value | Ref Range | Performed | Pathologist | | | | | At | Signature | + + + + + + | PAT TEMP | 38.2 | Degree C | [facility] | | | ARTERIAL | | | DEPARTMENT | | | | | | OF | | | | | | PATHOLOGY | | + + + + + + | FIO2 | 1.00 | | [facility] | | | ARTERIAL | | | DEPARTMENT | | | | | | OF | | | | | | PATHOLOGY | | + + + + + + | PH ARTERIAL | 7.31 (L) | 7.37 - 7.44 | [facility] | | | | | | DEPARTMENT | | | | | | OF | | | | | | PATHOLOGY | | + + + + + + | PCO2 | 56 (H) | 32 - 43 mmHg | [facility] | | | ARTERIAL | | | DEPARTMENT | | | | | | OF | | | | | | PATHOLOGY | | + + + + + + | PO2 | 144 (H) | 83 - 108 mmHg | [facility] | | | ARTERIAL | | | DEPARTMENT | | | | | | OF | | | | | | PATHOLOGY | | + + + + + + | BASE EXCESS | 0.9 | | [facility] | | | ARTERIAL | | | DEPARTMENT | | | | | | OF | | | | | | PATHOLOGY | | + + + + + + | HCO3 | 27 | 21 - 27 mmol/L | [facility] | | | ARTERIAL | | | DEPARTMENT | | | | | | OF | | | | | | PATHOLOGY | | + + + + + + | TOTAL CO2 | 29 (H) | 22 - 28 mmol/L | [facility] | | | ARTERIAL | | | DEPARTMENT | | | | | | OF | | | | | | PATHOLOGY | | + + + + + + | O2 SAT, | 98.7 (H) | 92.0 - 98.0 % | [facility] | | | ARTERIAL | | | DEPARTMENT | | | | | | OF | | | | | | PATHOLOGY | | + + + + + + + + | Specimen | + + | | + + + + + | Narrative | Performed At | + + + | Arterial Blood Gas | [facility] | | | DEPARTMENT OF | | | PATHOLOGY | + + + + + + + + | Performing | Address | City/State/Zipcode | Phone Number | | Organization | | | | + + + + + | [facility] | [address] | [place] [address] | | | PATHOLOGY | [address] | | | + + + + + | [facility] | [address] | [place] [address] | | | PATHOLOGY | [address] | | | + + + + + CHEST 1 VIEW (10/27/2005 6:53 PM PDT) + + + + + + | Component | Value | Ref Range | Performed | Pathologist | | | | | At | Signature | + + + + + + | CHEST, 1 | Radiologist 1: ALESSANDRO | | | | | VIEW | VIOLET V.EXAM: AP | | | | | | chest. COMPARISON: | | | | | | 10/23/05 INDICATION: | | | | | | Respiratory failure, | | | | | | Decortication FINDINGS: | | | | | | Endotracheal tube has | | | | | | been placed with its | | | | | | tip 4 cmabove the | | | | | | tom. Right internal | | | | | | jugular central line | | | | | | has its tipinvolving the | | | | | | mid superior vena cava. | | | | | | NG tube extends into | | | | | | thedecompressed stomach. | | | | | | There are three | | | | | | right-sided Chest | | | | | | tubesplaced. No | | | | | | pneumothorax is present. | | | | | | Small amount of soft | | | | | | tissueair is present on | | | | | | the right. The lung | | | | | | volumes are low | | | | | | withincreasing | | | | | | atelectasis in both | | | | | | lower lobes as well as | | | | | | the rightupper lobe. | | | | | | Concurrent areas of | | | | | | mild aspiration are | | | | | | conceivable. IMPRESSION: | | | | | | 1. Status post | | | | | | right-sided | | | | | | thoracotomy/decorticatio | | | | | | n. Tubes andlines as | | | | | | above. No residual | | | | | | pneumothorax. 2. | | | | | | Worsening bilateral | | | | | | areas of atelectasis. | | | | | | If the patient hasa | | | | | | low-grade fever, | | | | | | consideration for | | | | | | aspiration could be | | | | | | made. | | | | + + + + + + + + | Specimen | + + | | + + + +---------+ + + | Performing | Address | City/State/Zipcode | Phone Number | | Organization | | | | + +---------+ + + | [facility] DEPARTMENT OF | | | | | RADIOLOGY | | | | + +---------+ + + SLIDE REVIEW (10/27/2005 6:15 PM PDT) + + | Specimen | + + | | + + + + + | Narrative | Performed At | + + + | * Corrected 10/27/05 19:29: SALVADOR ROSE, prev report: Slide | [facility] | | review pending. | DEPARTMENT OF | | | PATHOLOGY | + + + + + + + + | Performing | Address | City/State/Zipcode | Phone Number | | Organization | | | | + + + + + | [facility] DEPARTMENT OF | [address] | [place] [address] | | | PATHOLOGY | [address] | | | + + + + + | [facility] DEPARTMENT OF | [address] | [place] [address] | | | PATHOLOGY | [address] | | | + + + + + MAGNESIUM, PLASMA (10/27/2005 6:15 PM PDT) + +---------+ + + + [...] | + + + + + | [facility] DEPARTMENT | [address] | [place] [address] | | | PATHOLOGY | [address] | | | + + + + + | [facility] | [address] | [place] [address] | | | PATHOLOGY | [address] | | | + + + + + CBC, WITH DIFFERENTIAL (10/27/2005 6:15 PM PDT) + + + + + + | Component | Value | Ref Range | Performed | Pathologist | | | | | At | Signature | + + + + + + | WHITE CELL | 25.9 (H) | 4.4 - 11.0 K/cu | [facility] | | | COUNT | | mm | DEPARTMENT | | | | | | OF | | | | | | PATHOLOGY | | + + + + + + | RED CELL | 3.52 (L) | 4.00 - 5.20 | [facility] | | | COUNT | | M/cu mm | DEPARTMENT | | | | | | OF | | | | | | PATHOLOGY | | + + + + + + | HEMOGLOBIN | 10.6 (L) | 12.0 - 16.0 | [facility] | | | | | g/dL | DEPARTMENT | | | | | | OF | | | | | | PATHOLOGY | | + + + + + + | HEMATOCRIT | 30.8 (L) | 36.0 - 46.0 % | [facility] | | | | | | DEPARTMENT | | | | | | OF | | | | | | PATHOLOGY | | + + + + + + | MCV | 87.5 | 80.0 - 96.0 fL | [facility] | | | | | | DEPARTMENT | | | | | | OF | | | | | | PATHOLOGY | | + + + + + + | MCHC | 34.2 | 33.4 - 35.5 | [facility] | | | | | g/dL | DEPARTMENT | | | | | | OF | | | | | | PATHOLOGY | | + + + + + + | RDW | 15.8 (H) | 11.5 - 15.0 % | [facility] | | | | | | DEPARTMENT | | | | | | OF | | | | | | PATHOLOGY | | + + + + + + | PLATELET | 584 (H) | 150 - 400 K/cu | [facility] | | | COUNT | | mm | DEPARTMENT | | | | | | OF | | | | | | PATHOLOGY | | + + + + + + | DIFF | <or= 10% bands seen on | | [facility] | | | COMMENTS | scan. | | DEPARTMENT | | | | | | OF | | | | | | PATHOLOGY | | + + + + + + | CBC | Final automated | | [facility] | | | COMMENTS | differential report. | | DEPARTMENT | | | | Smear reviewed. | | OF | | | | | | PATHOLOGY | | + + + + + + + + | Specimen | + + | | + + + + + | Narrative | Performed At | + + + | * Corrected 10/27/05 19:29: ISRAELNEL COMMENTS, prev report: Slide | [facility] | | review pending. | DEPARTMENT OF | | | PATHOLOGY | + + + + + + + + | Performing | Address | City/State/Zipcode | Phone Number | | Organization | | | | + + + + + | [facility] DEPARTMENT [facility] | [address] | [place] [address] | | | PATHOLOGY | [address] | | | + + + + + | [facility] DEPARTMENT OF | [address] | [place] [address] | | | PATHOLOGY | [address] | | | + + + + + RENAL FUNCTION SET (10/27/2005 6:15 PM PDT) + +---------+ + + + | Component | Value | Ref Range | Performed | Pathologist | | | | | At | Signature | + +---------+ + + + | GLUCOSE, | 156 (H) | 65 - 110 mg/dL | [...] +---------+ + + + | ALBUMIN, | 2.3 (L) | 3.5 - 4.7 g/dL | [facility] | | | PLASMA | | | DEPARTMENT | | | (LAB) | | | OF | | | | | | PATHOLOGY | | + +---------+ + + + | CALCIUM, | 8.4 (L) | 8.5 - 10.5 | [facility] | | | PLASMA | | mg/dL | DEPARTMENT | | | (LAB) | | | OF | | | | | | PATHOLOGY | | + +---------+ + + + | PHOSPHORUS, | 3.6 | 2.4 - 4.7 mg/dL | [facility] | | | PLASMA [...] +---------+ + + + | POTASSIUM, | 4.2 | 3.5 - 5.1 | [facility] | | | PLASMA | | mmol/L | DEPARTMENT | | | (LAB) | | | OF | | | | | | PATHOLOGY | | + +---------+ + + + | CHLORIDE, | 99 | 98 - 107 mmol/L | [facility] | | | PLASMA | | | DEPARTMENT | | | (LAB) | | | OF | | | | | | PATHOLOGY | | + +---------+ + + + | TOTAL CO2, | 28 | 23 - 29 mmol/L [...] | + + + + + | [facility] DEPARTMENT OF | [address] | [place] [address] | | | PATHOLOGY | [address] | | | + + + + + | [facility] DEPARTMENT OF | [facility] | [place] [address] | | | PATHOLOGY | [address] | | | + + + + + DIFFERENTIAL (10/27/2005 6:15 PM PDT) + + + + + + | Component | Value | Ref Range | Performed | Pathologist | | | | | At | Signature | + + + + + + | NEUTROPHIL | 90 (H) | 50 - 70 % | [facility] | | | % | | | DEPARTMENT | | | | | | OF | | | | | | PATHOLOGY | | + + + + + + | LYMPHOCYTE | 6 (L) | 18 - 42 % | [facility] | | | % | | | DEPARTMENT | | | | | | OF | | | | | | PATHOLOGY | | + + + + + + | MONOCYTE % | 4 | 2 - 8 % | [facility] | | | | | | DEPARTMENT | | | | | | OF | | | | | | PATHOLOGY | | + + + + + + | EOS % | 0 (L) | 1 - 3 % | [facility] | | | | | | DEPARTMENT | | | | | | OF | | | | | | PATHOLOGY | | + + + + + + | BASO % | 0 | <3 % | [facility] | | | | | | DEPARTMENT | | | | | | OF | | | | | | PATHOLOGY | | + + + + + + | NEUTROPHIL | 23.3 (H) | 1.8 - 7.7 K/cu | [facility] | | | # | | mm | DEPARTMENT | | | | | | OF | | | | | | PATHOLOGY | | + + + + + + | LYMPHOCYTE | 1.5 | 1.0 - 4.8 K/cu | [facility] | | | # | | mm | DEPARTMENT | | | | | | OF | | | | | | PATHOLOGY | | + + + + + + | MONOCYTE # | 1.0 (H) | 0.1 - 0.6 K/cu | [facility] | | | | | mm | DEPARTMENT | | | | | | OF | | | | | | PATHOLOGY | | + + + + + + | EOS # | 0.0 | <0.6 K/cu mm | [facility] | | | | | | DEPARTMENT | | | | | | OF | | | | | | PATHOLOGY | | + + + + + + | BASO # | [...] Performed At | + + + | * Corrected 10/27/05 19:29: SALVADOR ROSE, prev report: Slide | [facility] | | review pending. | DEPARTMENT OF | | | PATHOLOGY | + + + + + + + + | Performing | Address | City/State/Zipcode | Phone Number | | Organization | | | | + + + + + | [facility] DEPARTMENT OF | [address] | [place] [address] | | | PATHOLOGY | [address] | | | + + + + + | [facility] DEPARTMENT OF | [address] | [place] [address] | | | PATHOLOGY | [address] | | | + + + + + BLOOD GASES, ARTERIAL (10/27/2005 6:15 PM PDT) + + + + + + | Component | Value | Ref Range | Performed | Pathologist | | | | | At | Signature | + + + + + + | PAT TEMP | 37.9 | Degree C | [facility] | | | ARTERIAL | | | DEPARTMENT | | | | | | OF | | | | | | PATHOLOGY | | + + + + + + | FIO2 | 1.00 | | [facility] | | | ARTERIAL | | | DEPARTMENT | | | | | | OF | | | | | | PATHOLOGY | | + + + + + + | PH ARTERIAL | 7.31 (L) | 7.37 - 7.44 | [facility] | | | | | | DEPARTMENT | | | | | | OF | | | | | | PATHOLOGY | | + + + + + + | PCO2 | 56 (H) | 32 - 43 mmHg | [facility] | | | ARTERIAL | | | DEPARTMENT | | | | | | OF | | | | | | PATHOLOGY | | + + + + + + | PO2 | 66 (L) | 83 - 108 mmHg | [facility] | | | ARTERIAL | | | DEPARTMENT | | | | | | OF | | | | | | PATHOLOGY | | + + + + + + | BASE EXCESS | 1.3 | | [facility] | | | ARTERIAL | | | DEPARTMENT | | | | | | OF | | | | | | PATHOLOGY | | + + + + + + | HCO3 | 28 (H) | 21 - 27 mmol/L | [facility] | | | ARTERIAL | | | DEPARTMENT | | | | | | OF | | | | | | PATHOLOGY | | + + + + + + | TOTAL CO2 | 29 (H) | 22 - 28 mmol/L | [facility] | | | ARTERIAL | | | DEPARTMENT | | | | | | OF | | | | | | PATHOLOGY | | + + + + + + | O2 SAT, | 91.3 (L) | 92.0 - 98.0 % | [facility] | | | ARTERIAL | | | DEPARTMENT | | | | | | OF | | | | | | PATHOLOGY | | + + + + + + + + | Specimen | + + | | + + + + + | Narrative | Performed At | + + + | Arterial Blood Gas | [facility] | | | DEPARTMENT OF | | | PATHOLOGY | + + + + + + + + | Performing | Address | City/State/Zipcode | Phone Number | | Organization | | | | + + + + + | [facility] [place] | [address] | [place] [address] | | | PATHOLOGY | [address] | | | + + + + + | [facility] | [address] [place] [address] | [place] [address] | | | PATHOLOGY | [address] | | | + + + + + FUNGUS PRELIMINARY 1 (10/27/2005 3:03 PM PDT) + + + + + + | Component | Value | Ref Range | Performed | Pathologist | | | | | At | Signature | + + + + + + | PRELIM | Fungus NOT detected at 1 | | | | | FUNGAL ISOL | week. | | | | + + + + + + + + | Specimen | + + | | + + + + + + + | Performing | Address | City/State/Zipcode | Phone Number | | Organization | | | | + + + + + | [facility] | [address] | [place] [address] | | | LAB-MICRO | | | | + + + + + CULT, FUNGAL (& SMEAR) (10/27/2005 3:03 PM PDT) + + + + + + | Component | Value | Ref Range | Performed | Pathologist | | | | | At | Signature | + + + + + + | SOURCE BODY | Right Pleural Space | | | | | SITE | | | | | + + + + + + | CULTURE | Fungus Culture | | | | | RESULT | Culture Source | | | | | | ....: Right Pleural | | | | | | Space | | | | | | Smear..............: | | | | | | No fungal elements seen | | | | | | Preliminary | | | | | | 1......: Fungus NOT | | | | | | detected at 1 week. RLB | | | | | | Final Report: Fungus | | | | | | NOT isolated after 3 | | | | | | weeks.Comment: Test | | | | | | performed at [facility] | | | | | | [facility] | | | | | | Laboratory. | | | | + + + + + + + + | Specimen | + + | | + + + + + + + | Performing | Address | City/State/Zipcode | Phone Number | | Organization | | | | + + + + + | [facility] | [address] | [place] [address] | | | LAB-MICRO | | | | + + + + + FUNGAL SMEAR ONLY (10/27/2005 3:03 PM PDT) + + + + + + | Component | Value | Ref Range | Performed | Pathologist | | | | | At | Signature | + + + + + + | CALCOFLUOR | No fungal elements seen | | | | | WHITE STAIN | | | | | | ONLY | | | | | + + + + + + | SOURCE BODY | Right Pleural Space | | | | | SITE | | | | | + + + + + + + + | Specimen | + + | | + + + + + + + | Performing | Address | City/State/Zipcode | Phone Number | | Organization | | | | + + + + + | [facility] | [address] | [place] [address] | | | LAB-MICRO | | | | + + + + + AFB PRELIM 1 (10/27/2005 3:03 PM PDT) + + + + + + | Component | Value | Ref Range | Performed | Pathologist | | | | | At | Signature | + + + + + + | PRELIMINARY | Acid Fast Bacilli NOT | | | | | 1 | detected at 4 weeks. | | | | + + + + + + + + | Specimen | + + | | + + + + + + + | Performing | Address | City/State/Zipcode | Phone Number | | Organization | | | | + + + + + | [facility] | [address] | [place] [address] | | | LAB-MICRO | | | | + + + + + ROSINA ADAMSON (ALL SPECIMEN TYPES) (10/27/2005 3:03 PM PDT) + + + + + + | Component | Value | Ref Range | Performed | Pathologist | | | | | At | Signature | + + + + + + | SOURCE BODY | Right Pleural Space | | | | | SITE | | | | | + + + + + + | CULTURE | Acid Fast Bacilli | | | | | RESULT | Culture | | | | | | Source.............: | | | | | | Right Pleural Space RLB | | | | | | FA Stain...........: | | | | | | AFB NOT detected. | | | | | | Preliminary 1......: | | | | | | Acid Fast Bacilli NOT | | | | | | detected at 4 weeks. | | | | | | Final | | | | | | Report.......: Acid | | | | | | Fast Bacilli NOT | | | | | | detected at 6 | | | | | | weeks.Comment: Test | | | | | | performed at [facility] | | | | | | [facility] | | | | | | Laboratory | | | | + + + + + + + + | Specimen | + + | | + + + + + + + | Performing | Address | City/State/Zipcode | Phone Number | | Organization | | | | + + + + + | [facility] | [address] | [place] [address] | | | LAB-MICRO | | | | + + + + + ACID FAST BACILLI, SMEAR ONLY (10/27/2005 3:03 PM PDT) + + + + + + | Component | Value | Ref Range | Performed | Pathologist | | | | | At | Signature | + + + + + + | SOURCE BODY | Right Pleural Space | | | | | SITE | | | | | + + + + + + | FLUOROCHROM | AFB NOT detected. | | | | | E STAIN | | | | | + + + + + + + + | Specimen | + + | | + + + + + + + | Performing | Address | City/State/Zipcode | Phone Number | | Organization | | | | + + + + + | [facility] | [address] | [place] [address] | | | LAB-MICRO | | | | + + + + + CULT, WOUND BACTI & GS (10/27/2005 3:03 PM PDT) + + + + + + | Component | Value | Ref Range | Performed | Pathologist | | | | | At | Signature | + + + + + + | SOURCE BODY | Right Pleural Space | | | | | SITE | | | | | + + + + + + | CULTURE | Wound Culture | | | | | RESULT | | | | | | | Source...............: | | | | | | Right Pleural Space RLB | | | | | | Gram Stain...........: | | | | | | No Epithelial cells | | | | | | | | | | | | Few PMN's | | | | | | | | | | | | No | | | | | | organisms seen. | | | | | | Culture: | | | | | | Preliminary Report: No | | | | | | growth after 1 day. | | | | | | Culture examined | | | | | | daily. Report will | | | | | | be updated if growth | | | | | | occurs. Final | | | | | | Report: No growth after | | | | | | 3 days. No | | | | | | anaerobes isolated | | | | | | Final ReportComment: | | | | | | Test performed at [facility] | | | | | | [facility] | | | | | | Laboratory. | | | | + + + + + + + + | Specimen | + + | | + + + + + + + | Performing | Address | City/State/Zipcode | Phone Number | | Organization | | | | + + + + + | [facility] | [address] | [place] [address] | | | LAB-MICRO | | | | + + + + + GRAM SMEAR ONLY, STAT (10/27/2005 3:03 PM PDT) + + + + + + | Component | Value | Ref Range | Performed | Pathologist | | | | | At | Signature | + + + + + + | GRAM SMEAR | No organisms seen. | | [facility] | | | ONLY-[facility] | Rare WBC | | DEPARTMENT | | | | | | OF | | | | | | PATHOLOGY | | + + + + + + | SMEAR | Direct Smear | | [facility] | | | PREPARATION | | | DEPARTMENT | | | | | | OF | | | | | | PATHOLOGY | | + + + + + + | SOURCE BODY | Right Pleural Space | | [facility] | | | SITE | | | DEPARTMENT | | | [...] | + + + + + | [facility] DEPARTMENT OF | [address] | [place] [address] | | | PATHOLOGY | [address] | | | + + + + + | [facility] DEPARTMENT OF | [address] | [place] [address] | | | PATHOLOGY | [address] | | | + + + + + FUNGUS PRELIMINARY 1 (10/27/2005 2:46 PM PDT) + + + + + + | Component | Value | Ref Range | Performed | Pathologist | | | | | At | Signature | + + + + + + | PRELIM | Fungus NOT detected at 1 | | | | | FUNGAL ISOL | week. | | | | + + + + + + + + | Specimen | + + | | + + + + + + + | Performing | Address | City/State/Zipcode | Phone Number | | Organization | | | | + + + + + | [facility] | [address] | [place] [address] | | | LAB-MICRO | | | | + + + + + CULT, FUNGAL (& SMEAR) (10/27/2005 2:46 PM PDT) + + + + + + | Component | Value | Ref Range | Performed | Pathologist | | | | | At | Signature | + + + + + + | SOURCE BODY | Right Pleural Rind | | | | | SITE | | | | | + + + + + + | CULTURE | Fungus Culture | | | | | RESULT | Culture Source | | | | | | ....: Right Pleural | | | | | | Rind | | | | | | Smear..............: | | | | | | No fungal elements seen | | | | | | Preliminary | | | | | | 1......: Fungus NOT | | | | | | detected at 1 week. RLB | | | | | | Final Report: Fungus | | | | | | NOT isolated after 3 | | | | | | weeks.Comment: Test | | | | | | performed at [facility] | | | | | | [facility] | | | | | | Laboratory. | | | | + + + + + + + + | Specimen | + + | | + + + + + + + | Performing | Address | City/State/Zipcode | Phone Number | | Organization | | | | + + + + + | [facility] | [address] | [place] [address] | | | LAB-MICRO | | | | + + + + + FUNGAL SMEAR ONLY (10/27/2005 2:46 PM PDT) + + + + + + | Component | Value | Ref Range | Performed | Pathologist | | | | | At | Signature | + + + + + + | CALCOFLUOR | No fungal elements seen | | | | | WHITE STAIN | | | | | | ONLY | | | | | + + + + + + | SOURCE BODY | Right Pleural Rind | | | | | SITE | | | | | + + + + + + + + | Specimen | + + | | + + + + + + + | Performing | Address | City/State/Zipcode | Phone Number | | Organization | | | | + + + + + | [facility] | [address] | [place] [address] | | | LAB-MICRO | | | | + + + + + AFB PRELIM 1 (10/27/2005 2:46 PM PDT) + + + + + + | Component | Value | Ref Range | Performed | Pathologist | | | | | At | Signature | + + + + + + | PRELIMINARY | Acid Fast Bacilli NOT | | | | | 1 | detected at 4 weeks. | | | | + + + + + + + + | Specimen | + + | | + + + + + + + | Performing | Address | City/State/Zipcode | Phone Number | | Organization | | | | + + + + + | [facility] | [address] | [place] [address] | | | LAB-MICRO | | | | + + + + + ROSINA ADAMSON (ALL SPECIMEN TYPES) (10/27/2005 2:46 PM PDT) + + + + + + | Component | Value | Ref Range | Performed | Pathologist | | | | | At | Signature | + + + + + + | SOURCE BODY | Right Pleural Rind | | | | | SITE | | | | | + + + + + + | CULTURE | Acid Fast Bacilli | | | | | RESULT | Culture | | | | | | Source.............: | | | | | | Right Pleural Rind RLB | | | | | | FA Stain...........: | | | | | | AFB NOT detected. | | | | | | Preliminary 1......: | | | | | | Acid Fast Bacilli NOT | | | | | | detected at 4 weeks. | | | | | | Final Report.......: | | | | | | Acid Fast Bacilli | | | | | | NOT detected at 6 | | | | | | weeks.Comment: Test | | | | | | performed at [facility] | | | | | | [facility] | | | | | | Laboratory | | | | + + + + + + + + | Specimen | + + | | + + + + + + + | Performing | Address | City/State/Zipcode | Phone Number | | Organization | | | | + + + + + | [facility] | [address] | [place] [address] | | | LAB-MICRO | | | | + + + + + ACID FAST BACILLI, SMEAR ONLY (10/27/2005 2:46 PM PDT) + + + + + + | Component | Value | Ref Range | Performed | Pathologist | | | | | At | Signature | + + + + + + | SOURCE BODY | Right Pleural Rind | | | | | SITE | | | | | + + + + + + | FLUOROCHROM | AFB NOT detected. | | | | | E STAIN | | | | | + + + + + + + + | Specimen | + + | | + + + + + + + | Performing | Address | City/State/Zipcode | Phone Number | | Organization | | | | + + + + + | [facility] | [address] | [place] [address] | | | LAB-MICRO | | | | + + + + + CULT, TISSUE (10/27/2005 2:46 PM PDT) + + + + + + | Component | Value | Ref Range | Performed | Pathologist | | | | | At | Signature | + + + + + + | SOURCE BODY | Right Pleural Rind | | | | | SITE | | | | | + + + + + + | CULTURE | Tissue Culture | | | | | RESULT | | | | | | | Source...............: | | | | | | Right Pleural Rind RLB | | | | | | Gram Stain...........: | | | | | | No Epithelial cells | | | | | | | | | | | | No PMN's | | | | | | | | | | | | No | | | | | | organisms seen. | | | | | | Culture: | | | | | | Preliminary Report: No | | | | | | growth after 1 day. | | | | | | Culture examined | | | | | | daily. Report will | | | | | | be updated if growth | | | | | | occurs. Final | | | | | | Report: No growth after | | | | | | 3 days. No | | | | | | anaerobes isolated | | | | | | Final ReportComment: | | | | | | Test performed at [facility] | | | | | | [facility] | | | | | | Laboratory. | | | | + + + + + + + + | Specimen | + + | | + + + + + + + | Performing | Address | City/State/Zipcode | Phone Number | | Organization | | | | + + + + + | [facility] | [address] | [place] [address] | | | LAB-MICRO | | | | + + + + + GRAM SMEAR ONLY, STAT (10/27/2005 2:46 PM PDT) + + + + + + | Component | Value | Ref Range | Performed | Pathologist | | | | | At | Signature | + + + + + + | GRAM SMEAR | Rare WBC | | [facility] | | | ONLY-[facility] | No organisms seen. | | DEPARTMENT | | | | | | OF | | | | | | PATHOLOGY | | + + + + + + | SMEAR | Direct Smear | | [facility] | | | PREPARATION | | | DEPARTMENT | | | | | | OF | | | | | | PATHOLOGY | | + + + + + + | SOURCE BODY | Tissue, Right Pleural | | [facility] | | | SITE | Rind | | DEPARTMENT | | | | | | OF | | | | | | PATHOLOGY | | + + + + + + + + | Specimen | + + | | + + + + + + + | Performing | Address | City/State/Zipcode | Phone Number | | Organization | | | | + + + + + | [facility] DEPARTMENT OF | [address] | [place] [address] | | | PATHOLOGY | [address] | | | + + + + + | [facility] DEPARTMENT OF | [address] | [place] [address] | | | PATHOLOGY | [address] | | | + + + + + HCG QUAL, URINE (10/27/2005 7:05 AM PDT) + + + + + + | Component | Value | Ref Range | Performed | Pathologist | | | | | At | Signature | + + + + + + | HCG QUAL | None detected; negative | mIU/mL | [facility] | | | URINE | | | DEPARTMENT | | | | | | OF | | | | | | PATHOLOGY | | + + + + + + + + | Specimen | + + | | + + + + + | Narrative | Performed At | + + + | Reference Range= Negative | [facility] | | | DEPARTMENT OF | | | PATHOLOGY | + + + + + + + + | Performing | Address | City/State/Zipcode | Phone Number | | Organization | | | | + + + + + | [facility] DEPARTMENT OF | [address] [place] [address] | [place] [address] | | | PATHOLOGY | [address] | | | + + + + + | [facility] DEPARTMENT OF | [address] | [place] [address] | | | PATHOLOGY | [address] | | | + + + + + SURGICAL PATHOLOGY (10/27/2005) + + + + + + | Component | Value | Ref Range | Performed | Pathologist | | | | | At | Signature | + + + + + + | SURGICAL | SOURCE OF SPECIMEN:A | | [facility] | | | PATHOLOGY | Parietal pleura-FSSOURCE | | DEPARTMENT | | | | OF SPECIMEN:B Right | | OF | | | | pleural rind Final | | PATHOLOGY | | | | Pathologic Diagnosis:A: | | | | | | Parietal pleura, | | | | | | 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 Case | | | | | | reviewed by:Georgina | | | | | | White, | | | | | | M.D./ResidentVeslita | | | | | | Pita, | | | | | | M.D./ResidentChristopher | | | | | | L. Ngoc Bates, | | | | | | Ph.D./PathologistT:10/30/ | | | | | | 06:rhc/lemI have | | | | | | reviewed all diagnostic | | | | | | slides and have edited | | | | | | the gross | | | | | | and/ormicroscopic | | | | | | portion of this report | | | | | | as part of my pathologic | | | | | | assessment andfinal | | | | | | diagnosis. 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 / Resident and | | | | | | Clara Retana M.D. | | | | | | /Pathologist Clinical | | | | | | History:The patient is a | | | | | | 35-year-old female with | | | | | | persistent right | | | | | | pneumothorax. Gross | | | | | | Description:Received are | | | | | | two specimens. A: | | | | | | Parietal pleura-FS: | | | | | | Received fresh is a | | | | | | 1.8 x 1.4-cm | | | | | | sheet-likefragment of | | | | | | tissue grossly | | | | | | consistent with pleura, | | | | | | up to 0.3 cm thick, | | | | | | witha smooth, glistening | | | | | | white-pink cut surface. | | | | | | The pleura is | | | | | | smooth,garcia-speckled | | | | | | pink, with several focal | | | | | | tears. A | | | | | | customer response representative section | | | | | | isused for frozen | | | | | | section diagnosis and | | | | | | resubmitted. The | | | | | | remaining specimenis | | | | | | entirely submitted. B: | | | | | | Right pleural rind: | | | | | | Received fresh are | | | | | | multiple sheet-like | | | | | | andirregular fragments | | | | | | of soft to firm, | | | | | | garcia-red, mottled tissue | | | | | | and admixedblood clot | | | | | | with no orientation | | | | | | given, measuring 12.0 x | | | | | | 8.0 x3.5 cm in | | | | | | aggregate. The | | | | | | sheet-like fragments | | | | | | measure up to 0.5 cm | | | | | | thick.No papillary | | | | | | excrescences are noted. 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 | | | | | | Cassette Index:A: | | | | | | Parietal Pleura-FS:A1, | | | | | | frozen section | | | | | | residueA2, remainder of | | | | | | specimenB: Right | | | | | | pleural | | | | | | rind:[id number]:labRenderi | | | | | | ng Diagnostician: | | | | | | Vinny Bates | | | | | | | | | | | | Ngoc,Ph.D.PathologistEle | | | | | | ctronically Signed | | | | | | 11/03/2005 | | | | + + + + + + + + | Specimen | + + | | + + + + + + + | Performing | Address | City/State/Zipcode | Phone Number | | Organization | | | | + + + + + | [facility] | [address] | [place] [address] | | | PATHOLOGY | [address] | | | + + + + + | [facility] | [address] | [place] [address] | | | PATHOLOGY | [address] | | | + + + + + BLOOD BANK PRODUCT (10/26/2005 10:45 AM PDT) + + + + + + | Component | Value | Ref Range | Performed | Pathologist | | | | | At | Signature | + + + + + + | PRODUCT | RED CELL LEUKOREDUCED | | [facility] | | | DESCRIPTION | | | DEPARTMENT | | | | | | OF | | | | | | PATHOLOGY | | + + + + + + | PRODUCT | [id number] | | [facility] | | | UNIT # | | | DEPARTMENT | | | | | | OF | | | | | | PATHOLOGY | | + + + + + + | UNIT ABO | O | | [facility] | | | | | | DEPARTMENT | | | | | | OF | | | | | | PATHOLOGY | | + + + + + + | UNIT RH | POS | | [facility] | | | | | | DEPARTMENT | | | | | | OF | | | | | | PATHOLOGY | | + + + + + + | STATUS OF | Released | | [facility] | | | UNIT | | | DEPARTMENT | | | [...] + | [facility] DEPARTMENT OF | [address] | [place] [address] | | | PATHOLOGY | [address] | | | + + + + + | [facility] DEPARTMENT OF | [address] | [place] [address] | | | PATHOLOGY | [address] | | | + + + + + BLOOD BANK PRODUCT (10/26/2005 10:45 AM PDT) + + + + + + | Component | Value | Ref Range | Performed | Pathologist | | | | | At | Signature | + + + + + + | PRODUCT | RED CELL LEUKOREDUCED | | [facility] | | | DESCRIPTION | | | DEPARTMENT | | | | | | OF | | | | | | PATHOLOGY | | + + + + + + | PRODUCT | [id number] | | [facility] | | | UNIT # | | | DEPARTMENT | | | | | | OF | | | | | | PATHOLOGY | | + + + + + + | UNIT ABO | O | | [facility] | | | | | | DEPARTMENT | | | | | | OF | | | | | | PATHOLOGY | | + + + + + + | UNIT RH | POS | | [facility] | | | | | | DEPARTMENT | | | | | | OF | | | | | | PATHOLOGY | | + + + + + + | STATUS OF | Released | | [facility] | | | UNIT | | | DEPARTMENT | | | [...] | + + + + + | [facility] DEPARTMENT | [address] | [place] [address] | | | PATHOLOGY | [address] | | | + + + + + | [facility] | [address] [place] [address] | [place] [address] | | | PATHOLOGY | [address] | | | + + + + + CBC ONLY WITH PLATELET (10/26/2005 10:45 AM PDT) + + + + + + | Component | Value | Ref Range | Performed | Pathologist | | | | | At | Signature | + + + + + + | WHITE CELL | 13.0 (H) | 4.4 - 11.0 K/cu | [facility] | | | COUNT | | mm | DEPARTMENT | | | | | | OF | | | | | | PATHOLOGY | | + + + + + + | RED CELL | 3.88 (L) | 4.00 - 5.20 | [facility] | | | COUNT | | M/cu mm | DEPARTMENT | | | | | | OF | | | | | | PATHOLOGY | | + + + + + + | HEMOGLOBIN | 11.6 (L) | 12.0 - 16.0 | [facility] | | | | | g/dL | DEPARTMENT | | | | | | OF | | | | | | PATHOLOGY | | + + + + + + | HEMATOCRIT | 33.7 (L) | 36.0 - 46.0 % | [facility] | | | | | | DEPARTMENT | | | | | | OF | | | | | | PATHOLOGY | | + + + + + + | MCV | 86.8 | 80.0 - 96.0 fL | [facility] | | | | | | DEPARTMENT | | | | | | OF | | | | | | PATHOLOGY | | + + + + + + | MCHC | 34.5 | 33.4 - 35.5 | [facility] | | | | | g/dL | DEPARTMENT | | | | | | OF | | | | | | PATHOLOGY | | + + + + + + | RDW | 16.0 (H) | 11.5 - 15.0 % | [facility] | | | | | | DEPARTMENT | | | | | | OF | | | | | | PATHOLOGY | | + + + + + + | PLATELET | 593 (H) | 150 - 400 K/cu | [facility] | | | COUNT [...] | + + + + + | [facility] DEPARTMENT OF | [facility] | [place] [address] | | | PATHOLOGY | [address] | | | + + + + + | [facility] DEPARTMENT OF | [facility] | [place] [address] | | | PATHOLOGY | [address] | | | + + + + + COMP METABOLIC SET (10/26/2005 10:45 AM PDT) + +---------+ + + + | Component | Value | Ref Range | Performed | Pathologist | | | | | At | Signature | + +---------+ + + + | GLUCOSE, | 185 (H) | 65 - 110 mg/dL | [facility] | | | PLASMA | | | DEPARTMENT | | | (LAB) | | | OF | | | | | | PATHOLOGY | | + +---------+ + + + | BUN, PLASMA | 9 | 6 - 20 mg/dL | [facility] | | | (LAB) | | | DEPARTMENT | | | | | | OF | | | | | | PATHOLOGY | | + +---------+ + + + | CREATININE | 0.7 | 0.6 - 1.1 mg/dL | [facility] | | | PLASMA | | | DEPARTMENT | | | (LAB) | | | OF | | | | | | PATHOLOGY | | + +---------+ + + + | TOTAL | 6.9 | 6.1 - 7.9 g/dL | [facility] | | | PROTEIN, | | | DEPARTMENT | | | PLASMA | | | OF | | | (LAB) | | | PATHOLOGY | | + +---------+ + + + | ALBUMIN, | 2.8 (L) | 3.5 - 4.7 g/dL | [...] +---------+ + + + | BILIRUBIN | 0.4 | 0.3 - 1.2 mg/dL | [facility] | | | TOTAL | | | DEPARTMENT | | | | | | OF | | | | | | PATHOLOGY | | + +---------+ + + + | ALK PHOS | 61 | 42 - 98 U/L | [facility] | | | | | | DEPARTMENT | | | | | | OF | | | | | | PATHOLOGY | | + +---------+ + + + | AST(SGOT) | 14 (L) | 15 - 41 U/L | [facility] | | | | | | DEPARTMENT | | | | | | OF | | | | | | PATHOLOGY | | + +---------+ + + + | SODIUM, | 131 (L) | 136 - 145 | [facility] | | | PLASMA | | mmol/L | DEPARTMENT | | | (LAB) | | | OF | | | | | | PATHOLOGY | | + +---------+ + + + | POTASSIUM, | 4.2 | 3.5 - 5.1 | [facility] | | | PLASMA | | mmol/L | DEPARTMENT | | | (LAB) | | | OF | | | | | | PATHOLOGY | | + +---------+ + + + | CHLORIDE, | 93 (L) | 98 - 107 mmol/L | [facility] | | | PLASMA | | | DEPARTMENT | | | (LAB) | | | OF | | | | | | PATHOLOGY | | + +---------+ + + + | TOTAL CO2, | 28 | 23 - 29 mmol/L | [facility] | | | PLASMA | | | DEPARTMENT | | | (LAB) | | | OF | | | | | | PATHOLOGY | | + +---------+ + + + | ALT (SGPT) | 18 | 13 - 48 U/L | [facility] [...] | + + + + + | [facility] DEPARTMENT | [id number] | [place] [address] | | | PATHOLOGY | [address] | | | + + + + + | [facility] DEPARTMENT OF | [address] | [place] [address] | | | PATHOLOGY | [address] | | | + + + + + ANTIBODY SCREEN & CROSSMATCH (10/26/2005 10:45 AM PDT) + +-------+ + + + | Component | Value | Ref Range | Performed | Pathologist | | | | | At | Signature | + +-------+ + + + | ABO GROUP | O | | [facility] | | | | | | DEPARTMENT | | | | | | OF | | | | | | PATHOLOGY | | + +-------+ + + + | RH TYPE | POS | | [facility] | | | | | | DEPARTMENT | | | | | | OF | | | | | | PATHOLOGY | | + +-------+ + + + | ANTIBODY | NEG | | [facility] | | | SCREEN | | | DEPARTMENT | | | | | | OF | | | | | | PATHOLOGY | | + +-------+ + + + + + | Specimen | + + | | + + + + + | Narrative | Performed At | + + + | Instrument Testing Instrument Testing | [facility] | | | DEPARTMENT OF | | | PATHOLOGY | + + + + + + + + | Performing | Address | City/State/Zipcode | Phone Number | | Organization | | | | + + + + + | [facility] | [address] | [place] [address] | | | PATHOLOGY | [address] | | | + + + + + | [facility] | [address] [place] [address] | [place] [address] | | | PATHOLOGY | [address] | | | + + + + + APTT (ACT. PART. THROMBO TIME) (10/26/2005 10:45 AM PDT) + + + + + + | Component | Value | Ref Range | Performed | Pathologist | | | | | At | Signature | + + + + + + | APTT | 34.2Comment: | 26.0 - 36.0 | [facility] | | | | APTT Therapeutic Range | seconds | DEPARTMENT | | | | | | OF | | | | | | PATHOLOGY | | | | (75-120)sec | | | | | | Heparin levels | | | | | | of 0.35-0.7 U/mL | | | | + + + + + + + + | Specimen | + + | | + + + + + + + | Performing | Address | City/State/Zipcode | Phone Number | | Organization | | | | + + + + + | [facility] DEPARTMENT OF | [address] | [place] [address] | | | PATHOLOGY | [address] | | | + + + + + | [facility] OF | [address] | [place] [address] | | | PATHOLOGY | [address] | | | + + + + + PROTHROMBIN TIME (10/26/2005 10:45 AM PDT) + + + + + + | Component | Value | Ref Range | Performed | Pathologist | | | | | At | Signature | + + + + + + | INR | 1.00Comment: | 0.90 - 1.20 INR | [facility] | | | | PT INR Therapeutic | | DEPARTMENT | | | | ranges for full | | OF | | | | anticoagulation: | | PATHOLOGY | | | | INR for | | | | | | Venous Thromboembolism | | | | | | | | | | | | (2.0-3.0)INR | | | | | | INR for most | | | | | | patients with mech. | | | | | | valves (2.5-3.5)INR | | | | + + + + + + + + | Specimen | + + | | + + + + + + + | Performing | Address | City/State/Zipcode | Phone Number | | Organization | | | | + + + + + | [facility] | [address] | [place] [address] | | | PATHOLOGY | [address] | | | + + + + + | [facility] | [address] | [place] [address] | | | PATHOLOGY | [address] | | | + + + + + CT CHEST WO CONTRAST (10/25/2005 9:40 AM PDT) + + + + + + | Component | Value | Ref Range | Performed | Pathologist | | | | | At | Signature | + + + + + + | CT CHEST WO | Radiologist 1: ALESSANDRO, | | | | | CONTRAST | VIOLET CuevasEXAM: Non | | | | | | contrast Chest CT | | | | | | HISTORY: Evaluate | | | | | | trapped lung, empyema | | | | | | COMPARISON: 10/21/05 | | | | | | TECHNIQUE: | | | | | | Contiguous 5-mm thick | | | | | | axial images were | | | | | | obtainedfrom the lung | | | | | | apices thru the adrenal | | | | | | glands. No IV contrast | | | | | | orreformations were | | | | | | performed. FINDINGS: | | | | | | The heart is normal in | | | | | | size. There is no | | | | | | pericardialeffusion. | | | | | | No left pleural | | | | | | effusion is seen. | | | | | | Limited evaluationof | | | | | | the upper abdomen is | | | | | | unremarkable. A right | | | | | | Chest tube isunchanged. | | | | | | `Small right pleural | | | | | | effusion and extensive | | | | | | pleural thickening | | | | | | isagain noted. The right | | | | | | pneumothorax has | | | | | | slightly decreased | | | | | | insize, although the | | | | | | mediastinum does | | | | | | demonstrate greater | | | | | | shifttowards the right. | | | | | | The right middle and | | | | | | lower lobe | | | | | | atelectasishas not | | | | | | significantly changed. | | | | | | The visceral and | | | | | | parietal | | | | | | pleuralthickening has | | | | | | not changed. Small | | | | | | collections of air are | | | | | | presentwithin the right | | | | | | anterior lateral pleural | | | | | | space. There is | | | | | | nopneumonia or pulmonary | | | | | | edema. Right | | | | | | hemidiaphragmatic | | | | | | eventration is again | | | | | | noted. | | | | | | Osseousstructures are | | | | | | unremarkable. A mildly | | | | | | enlarged left | | | | | | thyroidgland, unchanged. | | | | | | Scattered mildly | | | | | | enlarged mediastinal | | | | | | lymphnodes are also | | | | | | unchanged. IMPRESSION: | | | | | | 1. Slight decrease in | | | | | | the persistent right | | | | | | pneumothorax, | | | | | | althoughthis is more | | | | | | likely due to shift of | | | | | | the mediastinum towards | | | | | | theright side. The | | | | | | right middle and lower | | | | | | lobe atelectasis | | | | | | anddestructive expansion | | | | | | has not significantly | | | | | | change. | | | | | | Persistentmoderate to | | | | | | severe visceral and | | | | | | parietal pleural | | | | | | thickening,consistent | | | | | | with residual from prior | | | | | | empyema or | | | | | | pneumothorax. 2. No | | | | | | change in the scattered | | | | | | mildly enlarged | | | | | | mediastinal lymphnodes. | | | | | | | | | | + + + + + + + + | Specimen | + + | | + + + +---------+ + + | Performing | Address | City/State/Zipcode | Phone Number | | Organization | | | | + +---------+ + + | [facility] | | | | | RADIOLOGY | | | | + +---------+ + + BASIC METABOLIC SET (10/23/2005 11:12 AM PDT) + +---------+ + + + | Component | Value | Ref Range | Performed | Pathologist | | | | | At | Signature | + +---------+ + + + | GLUCOSE, | 131 (H) | 65 - 110 mg/dL | [facility] | | | PLASMA | | | DEPARTMENT | | | (LAB) | | | OF | | | | | | PATHOLOGY | | + +---------+ + + + | BUN, PLASMA | 9 | 6 - 20 mg/dL | [facility] | | | (LAB) | | | DEPARTMENT | | | | | | OF | | | | | | PATHOLOGY | | + +---------+ + + + | CREATININE | 0.7 | 0.6 - 1.1 mg/dL | [facility] | | | PLASMA | | | DEPARTMENT | | | (LAB) | | | OF | | | | | | PATHOLOGY | | + +---------+ + + + | SODIUM, | 133 (L) | 136 - 145 | [facility] | | | PLASMA | | mmol/L | DEPARTMENT | | | (LAB) | | | OF | | | | | | PATHOLOGY | | + +---------+ + + + | POTASSIUM, | 4.2 | 3.5 - 5.1 | [facility] | | | PLASMA | | mmol/L | DEPARTMENT | | | (LAB) | | | OF | | | | | | PATHOLOGY | | + +---------+ + + + | CHLORIDE, | 95 (L) | 98 - 107 mmol/L | [facility] | | | PLASMA | | | DEPARTMENT | | | (LAB) | | | OF | | | | | | PATHOLOGY | | + +---------+ + + + | TOTAL CO2, | 28 | 23 - 29 mmol/L | [facility] | | | PLASMA | | | DEPARTMENT | | | (LAB) | | | OF | | | | | | PATHOLOGY | | + +---------+ + + + | CALCIUM, | 9.2 | 8.5 - 10.5 | [facility] | [...] + | [facility] DEPARTMENT OF | [address] | [place] [address] | | | PATHOLOGY | [address] | | | + + + + + | [facility] | [address] | [place] [address] | | | PATHOLOGY | [address] | | | + + + + + CBC ONLY WITH PLATELET (10/23/2005 11:12 AM PDT) + + + + + + | Component | Value | Ref Range | Performed | Pathologist | | | | | At | Signature | + + + + + + | WHITE CELL | 13.4 (H) | 4.4 - 11.0 K/cu | [facility] | | | COUNT | | mm | DEPARTMENT | | | | | | OF | | | | | | PATHOLOGY | | + + + + + + | RED CELL | 3.88 (L) | 4.00 - 5.20 | [facility] | | | COUNT | | M/cu mm | DEPARTMENT | | | | | | OF | | | | | | PATHOLOGY | | + + + + + + | HEMOGLOBIN | 11.6 (L) | 12.0 - 16.0 | [facility] | | | | | g/dL | DEPARTMENT | | | | | | OF | | | | | | PATHOLOGY | | + + + + + + | HEMATOCRIT | 34.0 (L) | 36.0 - 46.0 % | [facility] | | | | | | DEPARTMENT | | | | | | OF | | | | | | PATHOLOGY | | + + + + + + | MCV | 87.6 | 80.0 - 96.0 fL | [facility] | | | | | | DEPARTMENT | | | | | | OF | | | | | | PATHOLOGY | | + + + + + + | MCHC | 34.1 | 33.4 - 35.5 | [facility] | | | | | g/dL | DEPARTMENT | | | | | | OF | | | | | | PATHOLOGY | | + + + + + + | RDW | 16.0 (H) | 11.5 - 15.0 % | [facility] | | | | | | DEPARTMENT | | | | | | OF | | | | | | PATHOLOGY | | + + + + + + | PLATELET | 660 (H) | 150 - 400 K/cu | [facility] | | | COUNT [...] + | [facility] DEPARTMENT OF | [address] | [place] [address] | | | PATHOLOGY | [address] | | | + + + + + | [facility] | [address] | [place] [address] | | | PATHOLOGY | [address] | | | + + + + + ROD CUNNINGHAM ONLY (10/22/2005 8:50 PM PDT) + + + + + + | Component | Value | Ref Range | Performed | Pathologist | | | | | At | Signature | + + + + + + | COLOR(UR) | Yellow | | [facility] | | | | | | DEPARTMENT | | | | | | OF | | | | | | PATHOLOGY | | + + + + + + | APPEARANCE | Clear | | [facility] | | | | | | DEPARTMENT | | | | | | OF | | | | | | PATHOLOGY | | + + + + + + | GLUCOSE(UR) | Negative | mg/dL | [facility] | | | | | | DEPARTMENT | | | | | | OF | | | | | | PATHOLOGY | | + + + + + + | BILIRUBIN | Negative | | [facility] | | | | | | DEPARTMENT | | | | | | OF | | | | | | PATHOLOGY | | + + + + + + | KETONES | Negative | mg/dL | [facility] | | | | | | DEPARTMENT | | | | | | OF | | | | | | PATHOLOGY | | + + + + + + | SPECIFIC | <=1.005 | 1.005 - 1.030 | [facility] | | | GRAVITY | | | DEPARTMENT | | | | | | OF | | | | | | PATHOLOGY | | + + + + + + | BLOOD | Negative | | [facility] | | | | | | DEPARTMENT | | | | | | OF | | | | | | PATHOLOGY | | + + + + + + | PH(UR) | 5.5 | 5.0 - 8.0 | [facility] | | | | | | DEPARTMENT | | | | | | OF | | | | | | PATHOLOGY | | + + + + + + | PROTEIN(LAB | Negative | mg/dL | [facility] | | | ) | | | DEPARTMENT | | | | | | OF | | | | | | PATHOLOGY | | + + + + + + | UROBILINOGE | 0.2 | 0 - 0.2 JUAN | [facility] | | | N | | UNITS | DEPARTMENT | | | | | | OF | | | | | | PATHOLOGY | | + + + + + + | NITRITES | Negative | Negative | [facility] | | | | | | DEPARTMENT | | | | | | OF | | | | | | PATHOLOGY | | + + + + + + | LEUKOCYTE | Negative | Negative | [facility] | | | ESTERASE | | | DEPARTMENT | | | [...] + | [facility] DEPARTMENT OF | [address] | [place] [address] | | | PATHOLOGY | [address] | | | + + + + + | [facility] DEPARTMENT OF | [address] | [place] [address] | | | PATHOLOGY | [address] | | | + + + + + OSMOLALITY, PLASMA (10/22/2005 5:44 PM PDT) + +-------+ + + + | Component | Value | Ref Range | Performed | Pathologist | | | | | At | Signature | + +-------+ + + + | OSMOLALITY | 281 | 275 - 295 | [facility] | | | | | mOsm/kg H20 | DEPARTMENT | | | | | | OF | | | | | | PATHOLOGY | | + +-------+ + + + + + | Specimen | + + | | + + + + + + + | Performing | Address | City/State/Zipcode | Phone Number | | Organization | | | | + + + + + | [facility] DEPARTMENT | [address] | [place] [address] | | | PATHOLOGY | [address] | | | + + + + + | [facility] | [address] [place] [address] | [place] [address] | | | PATHOLOGY | [address] | | | + + + + + COMP METABOLIC SET (10/21/2005 8:00 PM PDT) + +---------+ + + + | Component | Value | Ref Range | Performed | Pathologist | | | | | At | Signature | + +---------+ + + + | GLUCOSE, | 144 (H) | 65 - 110 mg/dL | [facility] | | | PLASMA | | | DEPARTMENT | | | (LAB) | | | OF | | | | | | PATHOLOGY | | + +---------+ + + + | BUN, PLASMA | 11 | 6 - 20 mg/dL | [facility] | | | (LAB) | | | DEPARTMENT | | | | | | OF | | | | | | PATHOLOGY | | + +---------+ + + + | CREATININE | 0.8 | 0.6 - 1.1 mg/dL | [facility] | | | PLASMA | | | DEPARTMENT | | | (LAB) | | | OF | | | | | | PATHOLOGY | | + +---------+ + + + | TOTAL | 6.8 | 6.1 - 7.9 g/dL | [facility] | | | PROTEIN, | | | DEPARTMENT | | | PLASMA | | | OF | | | (LAB) | | | PATHOLOGY | | + +---------+ + + + | ALBUMIN, | 2.7 (L) | 3.5 - 4.7 g/dL | [facility] | | | PLASMA | | | DEPARTMENT | | | (LAB) | | | OF | | | | | | PATHOLOGY | | + +---------+ + + + | CALCIUM, | 9.4 | 8.5 - 10.5 | [facility] | | | PLASMA | | mg/dL | DEPARTMENT | | | (LAB) | | | OF | | | | | | PATHOLOGY | | + +---------+ + + + | BILIRUBIN | 0.3 | 0.3 - 1.2 mg/dL | [facility] | | | TOTAL | | | DEPARTMENT | | | | | | OF | | | | | | PATHOLOGY | | + +---------+ + + + | ALK PHOS | 64 | 42 - 98 U/L | [facility] | | | | | | DEPARTMENT | | | | | | OF | | | | | | PATHOLOGY | | + +---------+ + + + | AST(SGOT) | 21 | 15 - 41 U/L | [facility] [...] +---------+ + + + | POTASSIUM, | 4.8 | 3.5 - 5.1 | [facility] | [...] + + + | TOTAL CO2, | 28 | 23 - 29 mmol/L | [facility] | | | PLASMA | | | DEPARTMENT | | | (LAB) | | | OF | | | | | | PATHOLOGY | | + +---------+ + + + | ALT (SGPT) | 18 | 13 - 48 U/L | [facility] [...] + | [facility] DEPARTMENT OF | [address] | [place] [address] | | | PATHOLOGY | [address] | | | + + + + + | [facility] | [address] | [place] [address] | | | PATHOLOGY | [address] | | | + + + + + APTT (ACT. PART. THROMBO TIME) (10/21/2005 8:00 PM PDT) + + + + + + | Component | Value | Ref Range | Performed | Pathologist | | | | | At | Signature | + + + + + + | APTT | 37.1 (H)Comment: | 26.0 - 36.0 | [facility] | | | | APTT Therapeutic | seconds | DEPARTMENT | | | | Range | | OF | | | | | | PATHOLOGY | | | | (75-120)sec | | | | | | Heparin levels | | | | | | of 0.35-0.7 U/mL | | | | + + + + + + + + | Specimen | + + | | + + + + + + + | Performing | Address | City/State/Zipcode | Phone Number | | Organization | | | | + + + + + | [facility] | [address] | [place] [address] | | | PATHOLOGY | [address] | | | + + + + + | [facility] DEPARTMENT OF | [address] | [place] [address] | | | PATHOLOGY | [address] | | | + + + + + PROTHROMBIN TIME (10/21/2005 8:00 PM PDT) + + + + + + | Component | Value | Ref Range | Performed | Pathologist | | | | | At | Signature | + + + + + + | INR | 1.10Comment: | 0.90 - 1.20 INR | [facility] | | | | PT INR Therapeutic | | DEPARTMENT | | | | ranges for full | | OF | | | | anticoagulation: | | PATHOLOGY | | | | INR for | | | | | | Venous Thromboembolism | | | | | | | | | | | | (2.0-3.0)INR | | | | | | INR for most | | | | | | patients with mech. | | | | | | valves (2.5-3.5)INR | | | | + + + + + + + + | Specimen | + + | | + + + + + + + | Performing | Address | City/State/Zipcode | Phone Number | | Organization | | | | + + + + + | [facility] | [address] | [place] [address] | | | PATHOLOGY | [address] | | | + + + + + | [facility] | [address] | [place] [address] | | | PATHOLOGY | [address] | | | + + + + + CBC ONLY WITH PLATELET (10/21/2005 8:00 PM PDT) + + + + + + | Component | Value | Ref Range | Performed | Pathologist | | | | | At | Signature | + + + + + + | WHITE CELL | 15.1 (H) | 4.4 - 11.0 K/cu | [facility] | | | COUNT | | mm | DEPARTMENT | | | | | | OF | | | | | | PATHOLOGY | | + + + + + + | RED CELL | 3.92 (L) | 4.00 - 5.20 | [facility] | | | COUNT | | M/cu mm | DEPARTMENT | | | | | | OF | | | | | | PATHOLOGY | | + + + + + + | HEMOGLOBIN | 11.9 (L) | 12.0 - 16.0 | [facility] | | | | | g/dL | DEPARTMENT | | | | | | OF | | | | | | PATHOLOGY | | + + + + + + | HEMATOCRIT | 34.8 (L) | 36.0 - 46.0 % | [facility] | | | | | | DEPARTMENT | | | | | | OF | | | | | | PATHOLOGY | | + + + + + + | MCV | 88.7 | 80.0 - 96.0 fL | [facility] | | | | | | DEPARTMENT | | | | | | OF | | | | | | PATHOLOGY | | + + + + + + | MCHC | 34.2 | 33.4 - 35.5 | [facility] | | | | | g/dL | DEPARTMENT | | | | | | OF | | | | | | PATHOLOGY | | + + + + + + | RDW | 16.2 (H) | 11.5 - 15.0 % | [facility] | | | | | | DEPARTMENT | | | | | | OF | | | | | | PATHOLOGY | | + + + + + + | PLATELET | 732 (H) | 150 - 400 K/cu | [facility] | | | COUNT [...] | + + + + + | [facility] | [facility] | [place] [address] | | | PATHOLOGY | [address] | | | + + + + + | [facility] DEPARTMENT OF | [facility] | [place] [address] | | | PATHOLOGY | [address] | | | + + + + + documented in this encounter Visit Diagnoses Not on filedocumented in this encounter"
--- OUTSIDE RECORDS SUMMARY | ~2019-09-02 | XMS | Encounter Summary ---
Demographics + + + | Address | [address] | | | [place] [address] | + + + | Home Phone [...] Author + + + | Author | [facility] | + + + | Organization | [facility] | + + + | Address | Unknown | + + + | Phone | Unavailable | + + + Support + + + + + | Name | Relationship | Address | Phone | + + + + + | Scot Johnson | ECON | [address] | | | | | [place] [address] | | + + + + + Care Team Providers + +------+ + | Care Corporate Recruiter Name | Role | Phone | + +------+ + | Bart Ba DO | PCP | | + +------+ + Reason for Visit +--------+ + | Reason | Comments | +--------+ + | Ulcer | | +--------+ + Office Visit - E/M Services (Routine) +--------+ + + + + + | Status | Reason | Specialty | Diagnoses / | Referred By | Referred To | | | | | Procedures | Contact | Contact | +--------+ + + + + + | Closed | Specialty | Dermatology | Diagnoses | [facility] | [facility] | | | Services | | Ulcer of | Santana Faith, | [facility] [address] | | | Required | | other part | [address] [address] | [address] | | | | | of lower | [place] | Mailcode: | | | | | limb ulcer | FOOT | [facility] | | | | | of lower leg | SPECIALISTS | for Health | | | | | Procedures | [address] | and Healing, | | | | | OFFICE | [address] | [address], | | | | | CONSULTATION | [place], | [address] Floor | | | | | , [address] | [place] [address] | [place], [place] | | | | | [place] | Phone: | [phone] | | | | | OFFICE/OUTPT | [phone] | Phone: | | | | | | Fax: | [phone] | | | | | VISIT,EST,LE | [phone] | Fax: | | | | | VL [address] 1 | | [phone] | | | | | consult, 3 | | | | | | | office | | | | | | | visits | | | +--------+ + + + + + Encounter Details +--------+---------+ + + + | Date | Type | Department | Care Team | Description | +--------+---------+ + + + | 12/05/ | Office | Dermatology | Zayda Ordaz, | Ulcer (Primary Dx); | | 2007 | Visit | Medical at [facility] [address] | MD [address] | Pyoderma, | | | | [address] | [place], [place] | Unspecified | | | | Mailcode: [facility] | [address] | | | | | [facility] | [phone] | | | | | and Healing, | | | | | | Building | | | | | | Floor [place], [place] | | | | | | [address] | | | | | | [phone] | | | +--------+---------+ + + + Social History + +-------+ [...] this encounter Last Filed Vital Signs + +---------+ + + | Vital Sign | Reading | Time Taken | Comments | + +---------+ + + | Blood Pressure | 118/72 | 12/06/2007 3:25 PM | | | | | PDT | | + +---------+ + + | Pulse | 80 | 12/06/2007 3:25 PM | | | | | PDT | | + +---------+ + + | Temperature | - | - | | + +---------+ + + | Respiratory Rate | 16 | 12/06/2007 3:25 PM | | | | | PDT | | + +---------+ + + | Oxygen Saturation | - | - | | + +---------+ + + | Inhaled Oxygen | - | - | | | Concentration | | | | + +---------+ + + | Weight | - | - | | + +---------+ + + | Height | - | - | | + +---------+ + + | Body Mass Index | - | - | | + +---------+ + + documented in this encounter Progress Notes Zayda Ordaz - 02/28/2008 10:18 PM PSTI personally interviewed and examined the patient and discussed the plan with the patient. I have reviewed and edited the resident note to re flect my findings and assessment and agree with the documentation. Zayda Ordaz M.D. [facility] [facility] Dermatology. Sandy Durbin, Azucena - 008 3:59 PM PDT DERMATOLOGY NEW PATIENT VISIT CHIEF COMPLAINT: lower leg ulcers HISTORY OF PRESENT ILLNESS: Kait Min is a 37 y.o. Female with diabetes and RA on Imuran who presents for evaluation of LE ulcers. She describes 5 year history of LE ulcers which started on dorsal surface of left foot. Ulcers wax and wane in their course. Reports complete clearance of ulcers onl y twice for as long as one year. Has been followed by Dr. Chambers (Podiatry), lately on a week ly basis for wound flushing. Has been using xeroform with dressing changes (every [address] cleansing with antibiotic soap). Past therapies included Unna Boots, oral and IV antibi otics, and local wound care involving flushing of sinus tracts. Ulcers can be painful. Martinez s developed abcesses in the past requiring IV antibiotics. Oral antiobiotics which were hel pful in the past include levaquin and cipro. The patient's dermatology intake form was reviewed, signed, and dated. Her relevant PMH, F H, and SH includes: PAST MEDICAL HISTORY: DM II (now insuling dependant) since 2000 RA Hypothyroidism H/o pnuemothorax x 2 H/o stomach ulcers Mild RLS depression FAMILY HISTORY: Father with DM SOCIAL HISTORY: Tobacco 1-1.5 ppd No EtOH MEDICATIONS: Immuran (for RA) Levothyroxine vitamins for Ca Paroxetine Amytriptiline Lorazepam Metroprolol Prednisone 10mg (for RA) Magnesium oxide Rantidine ALLERGIES: Allergies Allergen Reactions Azithromycin REVIEW OF SYSTEMS: Please see HPI and PMH. In addition, she denies fever, chills, sweats, weight loss or loss of appetite, and has no further skin complaints. PHYSICAL EXAMINATION: Vitals as noted above. Well-developed, well-nourished female in no acute distress. Awake, alert and oriented. Pl easant and cooperative mood. A complete skin examination was performed including the scalp, face, eyelids, ears, lips, t eeth, tongue, oral mucosa, neck, chest, back, abdomen, buttocks, bilateral arms and legs, bi lateral hands and feet, and nails. Findings were within normal limits except for the follow in) bilateral shins and dorsal feet: many punched out ulcers, some with purulent base and fo ul odor with surrounding erythema and induration. No fluctuance noted. Additionally there are many cribriform depressed scars on the anterior bilateral shins and dorsal feet. ASSESSMENT AND PLAN: 1) Pyoderma gangrenosum likely with secondarily infected ulcers. Has many factors includin g DM, immunosuppressive meds that put her at increased risk of infection. May need moderate ly long course of antibiotics. Morphology of ulcers are not classic of PG, however pattern o f cribriform scarring is suggestive of this diagnosis. Other possibilities include vasculit is, stasis dermatitis. Biopsy of lateral edge of ulcer was considered however in the settin g of an acute infection, this was deferred today. Plan: -start Cipro 500mg BID x three weeks -protopic 0.1% ointment BID -bactroban ointment with dressing changes -consider biopsy when infection clears -If this is pyoderma gangrenosum, perhaps TNF stanton could help with both RA and skin dise ase, but need to totally clear infection before this could be used RTC: 3 weeks Azucena Jacobson MD Resident PGY-2, Department of Dermatology [facility] documented in this encoun ter Plan of Treatment Not on filedocumented as of this encounter Procedures + +--------+ + + + | Procedure Name | Priori | Date/Time | Associated Diagnosis | Comments | | | ty | | | | + +--------+ + + + | CULTURE, WOUND BACTI | Routin | 12/06/2007 | Ulcer | Results for this | | & GS | e | 4:22 PM | | procedure are in the | | | | PDT | | results section. | + +--------+ + + + documented in this encounter Results CULTURE, WOUND BACTI & GS (12/06/2007 4:22 PM PDT) + + + + + + | Component | Value | Ref Range | Performed | Pathologist | | | | | At | Signature | + + + + + + | SOURCE BODY | Left Leg | | | | | SITE | | | | | + + + + + + | CULTURE | Wound Culture | | | | | RESULT | | | | | | | Source...............: | | | | | | Left Leg RLB Gram | | | | | | Stain...........: Few | | | | | | Squamous epithelial | | | | | | cells | | | | | | | | | | | | Many PMN's | | | | | | | | | | | | Many Gram | | | | | | positive cocci | | | | | | | | | | | | Many Gram | | | | | | negative bacillus | | | | | | Culture: 3+ | | | | | | Escherichia coli | | | | | | | | | | | | Final | | | | | | ID 4+ Skin | | | | | | lisa. | | | | | | | | | | | | Final | | | | | | ID | | | | | | E. coli | | | | | | Ampicillin | | | | | | R Amp/Sulbactam | | | | | | S Cefazolin | | | | | | S | | | | | | Ciprofloxacin | | | | | | R Gentamicin | | | | | | S Tobramycin | | | | | | S | | | | | | Trimeth/Sulfa | | | | | | R Final Report | | | | | | Resulted: 12/10/07 | | | | | | [facility] | | | | | | [facility]) | | | | | | [facility] | | | | | | [id number] | | [address] | | | | | | [place], [place] | | | | | | [id number]: Test | | | | | | performed at [place] | | | | | | [facility] | | | | | | Laboratory. | | | | + + + + + + + + | Specimen | + + | Leg - Left | + + + + + + + | Performing | Address | City/State/Zipcode | Phone Number | | Organization | | | | + + + + + | [facility] | [address] | [place] [address] | | | [facility] | | | | + + + + + documented in this encounter Visit Diagnoses + + | Diagnosis | + + | Ulcer - Primary Chronic ulcer of unspecified site | + + | Pyoderma, unspecified | + + documented in this encounter"
--- OUTSIDE RECORDS SUMMARY | ~2019-09-02 | XMS | Encounter Summary ---
Demographics + + + | Address | [address] | | | [place] [address] | + + + | Home Phone [...] + + + | Author | [facility] | | | and [place] | + + + | Organization | [facility] | | | [...] | | | | | [place] [address] | | + + + + + | Robson Min | ECON | Unknown | | + + + + + | Isabella Whitehead | ECON | Unknown | | + + + + + | Seven Neff | ECON | Unknown | | + + + + + Care Team Providers + +------+ + | Care Dean Of Faculty Name | Role | Phone | + +------+ + | Bart Ba DO | PCP | | + +------+ + Reason for Visit + + + | Reason | Comments | + + + | Referral (Follow up) | | + + + Encounter Details +--------+ + + + + | Date | Type | Department | Care Team | Description | +--------+ + + + + | 02/02/ | Telephone | [facility] | Jimbo Samayoa MD | Referral (Follow up) | | 2017 | | [facility] | [address] | | | | | CLINIC [address] | [place] | | | | | [address] [place], | [address] | | | | | [place] [address] | | | | | | [phone] | | | +--------+ + + + [...] [place] | | | | | | [address] | | | | | | | | +--------+---------+ + + + | 11/05/ | Office | Neurology | Tariq, | | | 2019 | Visit | | [address] | | | | | | [address] [place], | | | | | | [place] [address] | | | | | | [phone] | | | | | | | | +--------+---------+ + + + documented as of this encounter Visit Diagnoses Not on filedocumented in this encounter"
--- OUTSIDE RECORDS SUMMARY | ~2019-09-02 | XMS | Encounter Summary ---
Demographics + + + | Address | [address] | | | [place] [address] | + + + | Home Phone | | + + + | Preferred Language | Unknown | + + + | Marital Status | Single | + + + | Mormon Affiliation | CHR | + + + [...] | | | | | [place] [address] | | + + + + + Care Team Providers + +------+ + | Care Piccoloist Name | Role | Phone | + +------+ + PCP | Unavailable | + +------+ + Encounter Details +--------+ + + + + | Date | Type | Department | Care Team | Description | +--------+ + + + + | 10/22/ | Respiratory | | Other, Faculty | | | 2006 | Therapy | | [phone] | | +--------+ + + + + [...] [facility] | [address] | [place], [place] | | | DIAGNOSTICS - | [place] | [address] | | | PULMONARY FUNCTION | | | | + + + + + documented in this encounter Visit Diagnoses Not on filedocumented in this encounter"
--- OUTSIDE RECORDS SUMMARY | ~2019-09-02 | XMS | Encounter Summary ---
Demographics + + + | Address | [address] | | | [place] [address] | + + + | Home Phone | | + + + | Preferred Language | Unknown | + + + | Marital Status | Single | + + + | Methodist Affiliation | Unknown | + + + | Race | Unknown | + + + | Ethnic Group | Unknown | + + + Author + + + | Author | [facility] | | | and [place] | + + + | Organization | [facility] | | | [...] | | | | | [place] [address] | | + + + + + | Robson Min | ECON | Unknown | | + + + + + | Isabella Whitehead | ECON | Unknown | | + + + + + | Seven Neff | ECON | Unknown | | + + + + + Care Team Providers + +------+ + | Care Filler Sifter Helper Name | Role | Phone | + +------+ + | Bart Ba DO | PCP | | + +------+ + Encounter Details +--------+ + + + + | Date | Type | Department | Care Team | Description | +--------+ + + + + | 08/20/ | Imaging | [facility] | Provider, | | | 2018 | Exam | [facility] | MD [address] | | | | | IMAGING [address] | [address] | | | | | [address] | [place] [address] | | | | | [place] [address] | | | | | | [phone] | | | +--------+ + + + [...] [place] | | | | | | [address] | | | | | | | | +--------+---------+ + + + | 11/05/ | Office | Neurology | Tariq, | | | 2019 | Visit | | [address] | | | | | | [address] [place] [place], | | | | | | [place] [address] | | | | | | [phone] | | | | | | | | +--------+---------+ + + + documented as of this encounter Procedures + +--------+ + + + | Procedure Name | Priori | Date/Time | Associated Diagnosis | Comments | | | ty | | | | + +--------+ + + + | XR CHEST 1 VIEW | Routin | 06/30/2017 | | Results for this | | | e | 4:15 PM | | procedure are in the | | | | PDT | | results section. | + +--------+ + + + documented in this encounter Results XR Chest 1 Vw (06/30/2017 4:15 PM PDT) + + | Specimen | [...]
--- OUTSIDE RECORDS SUMMARY | ~2019-09-02 | XMS | Encounter Summary ---
Demographics + + + | Address | [address] | | | [place] [address] | + + + | Home Phone | | + + + | Preferred Language | Unknown | + + + | Marital Status | Single | + + + | Jew Affiliation | Unknown | + + + [...] | | | | | [place] [address] | | + + + + + | Robson Min | ECON | Unknown | | + + + + + | Isabella Whitehead | ECON | Unknown | | + + + + + | Seven Neff | ECON | Unknown | | + + + + + Care Team Providers + +------+ + | Care Farmworker Turkey Farm Name | Role | Phone | + +------+ + | Juanito Avery | PCP | | + +------+ + Reason for Visit + + + | Reason | Comments | + + + | Appointment | | + + + Encounter Details +--------+ + + + + | Date | Type | Department | Care Team | Description | +--------+ + + + + | 07/11/ | Telephone | [facility] | Navdeep [place], | Appointment | | 2020 | | PULMONARY [address] | MD [address] | | | | | [place], | [place] | | | | | [place] [address] | [address] | | | | | [phone] | | | +--------+ + + + [...] + + documented as of this encounter Functional Status + + + [...] 2019 | Visit | | [address] | | | | | | [place] | | | | | | [address] | | | | | | | | +--------+---------+ + + + | 11/05/ | Office | Neurology | Tariq, | | | 2019 | Visit | | [address] | | | | | | [address] [place], | | | | | | [place] [address] | | | | | | [phone] | | | | | | | | +--------+---------+ + + + documented as of this encounter Visit Diagnoses Not on filedocumented in this encounter"
--- OUTSIDE RECORDS SUMMARY | ~2019-09-02 | XMS | Encounter Summary ---
Demographics + + + | Address | [address] | | | [place] [address] | + + + | Home Phone | | + + + | Preferred Language | Unknown | + + + | Marital Status | Single | + + + | Episcopalian Affiliation | CHR | + + + [...] | | | | | [place] [address] | | + + + + + Care Team Providers + +------+ + | Care Snuff Drier Name | Role | Phone | + +------+ + PCP | Unavailable | + +------+ + Encounter Details +--------+ + + + + | Date | Type | Department | Care Team | Description | +--------+ + + + + | 10/29/ | Respiratory | | Other, Faculty | | | 2006 | Therapy | | [phone] | | +--------+ + + + + [...] | | | | | | Margi, MED SURG NURSE | | | | + + + [...] [facility] | [address] | [facility] [place] | | | DIAGNOSTICS - | [place] | [address] | | | PULMONARY FUNCTION | | | | + + + + + documented in this encounter Visit Diagnoses Not on filedocumented in this encounter"
--- OUTSIDE RECORDS SUMMARY | ~2019-09-02 | XMS | Encounter Summary ---
Demographics + + + | Address | [address] | | | [place] [address] | + + + | Home Phone | | + + + | Preferred Language | Unknown | + + + | Marital Status | Single | + + + | Yarsani Affiliation | CHR | + + + [...] | | | | | [place] [address] | | + + + + + Care Team Providers + +------+ + | Care Deckhand Oyster Dredge Name | Role | Phone | + +------+ + PCP | Unavailable | + +------+ + Encounter Details +--------+ + + + + | Date | Type | Department | Care Team | Description | +--------+ + + + + | 10/24/ | Respiratory | | Other, Faculty | | | 2006 | Therapy | | [phone] | | +--------+ + + + + [...] | | | | | Y | REAL ESTATE VALUER | | | | + + + [...] [facility] | [address] | [place], [place] | | | DIAGNOSTICS - | [place] | [address] | | | PULMONARY FUNCTION | | | | + + + + + documented in this encounter Visit Diagnoses Not on filedocumented in this encounter"
--- OUTSIDE RECORDS SUMMARY | ~2019-09-02 | XMS | Encounter Summary ---
Demographics + + + | Address | [address] | | | [place] [address] | + + + | Home Phone | | + + + | Preferred Language | Unknown | + + + | Marital Status | Single | + + + | Moravian Affiliation | Unknown | + + + | Race | Unknown | + + + | Ethnic Group | Unknown | + + + Author + + + | Author | [facility] | | | and [place] | + + + | Organization | [facility] | | | [...] | | | | | [place] [address] | | + + + + + | Robson Escobar | ECON | Unknown | | + + + + + | Isabella Whitehead | ECON | Unknown | | + + + + + | Seven Neff | ECON | Unknown | | + + + + + Care Team Providers + +------+ + | Care Cupola Worker Name | Role | Phone | + +------+ + | Ora Slater | PCP | | + +------+ + Encounter Details +--------+ + + + + | Date | Type | Department | Care Team | Description | +--------+ + + + + | 09/18/ | Orders Only | [facility] | Navdeep Oreilly | | | 2016 | | CONVERSION [address] | MD [address] | | | | | [address] | [place] | | | | | [place], [place] | [place] [address] | | | | | [address] | [phone] | | | | | [phone] | | | +--------+ + + + [...] [place] | | | | | | [address] | | | | | | | | +--------+---------+ + + + | 11/05/ | Office | Neurology | Tariq, | | | 2019 | Visit | | [address] | | | | | | [address] [place], | | | | | | [place] [address] | | | | | | [phone] | | | | | | | | +--------+---------+ + + + documented as of this encounter Procedures + +--------+ + + + | Procedure Name | Priori | Date/Time | Associated Diagnosis | Comments | | | ty | | | | + +--------+ + + + | ECHO INTERPRETATION | Routin | 09/19/2015 | | Results for this | | OF OUTSIDE FILMS | e | 11:25 AM | | procedure are in the | | | | PDT | | results section. | + +--------+ + + + documented in this encounter Results ECHO Interpretation of Outside Films (09/19/2015 11:25 AM PDT) + + | Specimen | + + | | + + + + + | Impressions | Performed At | + + + | 1. Overall left ventricular systolic function is normal with, an EF | | | between 65 - 70 %. | | + + + + + + | Narrative | Performed At | + + + | Patient Name: CARLINE ESCOBAR Date of : 1970 | | | Performing Physician: Braden Isabel | | | | | | INDICATIONS Murmur CONCLUSIONS 1. | | | Overall left ventricular systolic function is normal with, an EF | | | between 65 - 70 %. FINDINGS -------- ECG rhythm: Sinus rhythm. | | | Study: A 2-dimensional transthoracic echocardiogram with m-mode, | | | spectral and color flow Doppler was perfomed. Study: This was a | | | technically difficult study with suboptimal views. Left Ventricle: | | | Overall left ventricular systolic function is normal with, an EF | | | between 65 - 70 %. Left Ventricle: The left ventricle cavity size is | | | normal. Left Ventricle: There is mild concentric left ventricular | | | hypertrophy. Right Ventricle: The right ventricle is normal in size. | | | Left Atrium: The left atrium was not well visualized. Left Atrium: | | | The left atrial size is normal. Right Atrium: The right atrial size | | | is normal. Aortic Valve: The aortic valve is trileaflet and appears | | | structurally normal. Aortic Valve: There is mild aortic valve | | | sclerosis without stenosis. Aortic Valve: There is no evidence of | | | aortic regurgitation. Aortic Valve: There is no evidence of aortic | | | stenosis. Mitral Valve: The mitral valve is normal. Mitral Valve: No | | | mitral regurgitation. Tricuspid Valve: The tricuspid valve appears | | | structurally normal. Tricuspid Valve: No regurgitation noted | | | Pulmonic Valve: The pulmonic valve is normal. Pericardium: There is | | | no pericardial effusion. IVC/Hepatic Veins: The IVC was not well | | | visualized. MEASUREMENTS LVEF MOD A4C: 67.10 % | | | SV MOD A4C: 94.39 ml LVEDV MOD A4C: 140.66 ml LVLd A4C: | | | 9.31 cm LVESV MOD A4C: 46.26 ml LVLs A4C: 7.85 cm | | | Regulatory Affairs Director: SAL Authenticated by: Braden Isabel Report | | | Date/Time: 09-21-2015 16:05:10 | | + + + + + | Procedure Note | + + | Jose Hanks Conversion - 12/09/2018 10:47 AM PDT Patient Name: Anupam ESCOBAR of | | : 1970 Performing Physician: Braden | | [place] INDICATIONS----- | | ------Murmur CONCLUSIONS 1. Overall left ventricular systolic function is | | normal with, an EF between 65 - 70 %. FINDINGS--------ECG rhythm: Sinus rhythm.Study: A | | 2-dimensional transthoracic echocardiogram with m-mode, spectral and color flow Doppler | | was perfomed.Study: This was a technically difficult study with suboptimal views.Left | | Ventricle: Overall left ventricular systolic function is normal with, an EF between 65 - | | 70 %.Left Ventricle: The left ventricle cavity size is normal.Left Ventricle: There is | | mild concentric left ventricular hypertrophy.Right Ventricle: The right ventricle is | | normal in size.Left Atrium: The left atrium was not well visualized.Left Atrium: The | | left atrial size is normal.Right Atrium: The right atrial size is normal.Aortic Valve: | | The aortic valve is trileaflet and appears structurally normal.Aortic Valve: There is | | mild aortic valve sclerosis without stenosis.Aortic Valve: There is no evidence of | | aortic regurgitation.Aortic Valve: There is no evidence of aortic stenosis.Mitral Valve: | | The mitral valve is normal.Mitral Valve: No mitral regurgitation.Tricuspid Valve: The | | tricuspid valve appears structurally normal.Tricuspid Valve: No regurgitation | | notedPulmonic Valve: The pulmonic valve is normal.Pericardium: There is no pericardial | | effusion.IVC/Hepatic Veins: The IVC was not well visualized. | | MEASUREMENTS LVEF MOD A4C: 67.10 %SV MOD A4C: 94.39 mlLVEDV MOD A4C: | | 140.66 mlLVLd A4C: 9.31 cmLVESV MOD A4C: 46.26 mlLVLs A4C: 7.85 cm Regulatory Affairs Director: | | DHAuthenticated by: Braden Tucker Date/Time: 09-21-2015 16:05:10 IMPRESSION: | | 1. Overall left ventricular systolic function is normal with, an EF between 65 - 70 %. | |Left Ventricle: There is mild concentric left ventricular hypertrophy. | |Right Ventricle: The right ventricle is normal in size. | |Left Atrium: The left atrium was not well visualized. | |Left Atrium: The left atrial size is normal. | |Right Atrium: The right atrial size is normal. | |Aortic Valve: The aortic valve is trileaflet and appears structurally normal. | |Aortic Valve: There is mild aortic valve sclerosis without stenosis. | |Aortic Valve: There is no evidence of aortic regurgitation. | |Aortic Valve: There is no evidence of aortic stenosis. | |Mitral Valve: The mitral valve is normal. | |Mitral Valve: No mitral regurgitation. | |Tricuspid Valve: The tricuspid valve appears structurally normal. | |Tricuspid Valve: No regurgitation noted | |Pulmonic Valve: The pulmonic valve is normal. | |Pericardium: There is no pericardial effusion. | |IVC/Hepatic Veins: The IVC was not well visualized. | | | |MEASUREMENTS | | | |LVEF MOD A4C: 67.10 % | |SV MOD A4C: 94.39 ml | |LVEDV MOD A4C: 140.66 ml | |LVLd A4C: 9.31 cm | |LVESV MOD A4C: 46.26 ml | |LVLs A4C: 7.85 cm | | | |Regulatory Affairs Director: SAL | |Authenticated by: Braden Isabel | |Report Date/Time: 09-21-2015 16:05:10 | | | |IMPRESSION: | |1. Overall left ventricular systolic function is normal with, an EF between 65 - 70 %. | + + documented in this encounter Visit Diagnoses Not on filedocumented in this encounter"
--- OUTSIDE RECORDS SUMMARY | ~2019-09-02 | XMS | Encounter Summary ---
Demographics + + + | Address | [address] | | | [place] [address] | + + + | Home Phone | | + + + | Preferred Language | Unknown | + + + | Marital Status | Single | + + + | Voodoo Affiliation | Unknown | + + + | Race | Unknown | + + + | Ethnic Group | Unknown | + + + Author + + + | Author | [facility] | | | and [place] | + + + | Organization | [facility] | | | and [place] | + + + | Address | Unknown | + + + | Phone | Unavailable | + + + Support + + + + + | Name | Relationship | Address | Phone | + + + + + | Isabella Min | ECON | [address] | | | | | [place] [address] | | + + + + + | Robson Min | ECON | Unknown | | + + + + + | Isabella Whitehead | ECON | Unknown | | + + + + + | Seven Neff | ECON | Unknown | | + + + + + Care Team Providers + +------+ + | Care Tool Radial Drill Press Set Up Operator Name | Role | Phone | + +------+ + | Ora Slater | PCP | | + +------+ + Reason for Visit + + + | Reason | Comments | + + + | Pulmonary Disease | 2 mo follow up | | Appointment | | + + + Evaluate & Treat [...] | | Disease / | Chronic | ZEB Carcamo | MD Navdeep | | | | Pulmonology | obstructive | [address] | [address] | | | | | pulmonary | [address] | [place], | | | | | disease, | [place], | [place] [address] | | | | | unspecified | [place] | Phone: | | | | | ([facility]) | [address] | [phone] | | | | | Obstructive | Phone: | Fax: | | | | | sleep apnea | [phone] | [phone] | | | | | (adult) | Fax: | | | | | | (pediatric) | [phone] | | | | | | Procedures [...] Description | +--------+---------+ + + + | 07/18/ | Office | [facility] | Navdeep Grande, | COPD exacerbation | | 2019 | Visit | PULMONARY [address] | ([facility]) (Primary Dx); | | | | [place], | [place], [place] | COPD, mild (HCC); | | | | [place] [address] | [address] | Alveolar | | | | [phone] | | hypoventilation; | | | | | | Hypoxemia; Tobacco | | | | | | [...] + + + | Blood Pressure | 140/80 | 07/18/2018 1:27 PM | | | | | PDT | | + + + + + | Pulse | 97 | 07/18/2018 1:27 PM | | | | | PDT | | + + + + + | Temperature | - | - | | + + + + + | Respiratory Rate | - | - | | + + + + + | Oxygen Saturation | 95% | 07/18/2018 1:27 PM | 3L PULSE | | | | PDT | | + + + + + | Inhaled Oxygen | - | - | | | Concentration | | | | + + + + + | Weight | 110.3 kg (243 lb 2.7 | 07/18/2018 1:27 PM | | | | oz) | PDT | | + + + + + | Height | 170.2 cm (5' 7") | 07/18/2018 1:27 PM | | | | | PDT | | + + + + + | Body Mass Index | 38.09 | 07/18/2018 1:27 PM | | | | | PDT | | + + + + + documented in this encounter Patient Instructions Patient Instructions Navdeep Grande MD - 07/18/2018 1:30 PM PDT COPD Flare You have had a flare-up of your COPD. COPD, or chronic obstructive pulmonary disease, is a common lung disease. It causes your ai rways to become irritated and narrower. This makes it harder for you to breathe. Emphysema a nd chronic bronchitis are both types of COPD. This is a chronic condition, which means you a lways have it. Sometimes it gets worse. When this happens, it is called a flare-up. Symptoms of COPD People with COPD may have symptoms most of the time. In a flare-up, your symptoms get worse . These symptoms may mean you are having a flare-up: Shortness of breath, shallow or rapid breathing, or wheezing that gets worse Lung infection Cough that gets worse More mucus, thicker mucus or mucus of a different color Tiredness, decreased energy, or trouble doing your usual activities Fever Chest tightness Your symptoms don t get better even when you use your usual medicines, inhalers, and n ebulizer Trouble talking You feel confused Causes of flare-ups Unfortunately, a flare-up can happen even though you did everything right, and you followed your doctor s instructions. Some causes of flare-ups are: Smoking or secondhand smoke Colds, the flu, or respiratory infections Air pollution Sudden change in the weather Dust, irritating chemicals, or strong fumes Not taking your medicines as prescribed Home care Here are some things you can do at home to treat a flare-up: Try not to panic. This makes it harder to breathe, and keeps you from doing the right th ings. Don t smoke or be around others who are smoking. Try to drink more fluids than usual during a flare-up, unless your doctor has told you n ot to because of heart and kidney problems. More fluids can help loosen the mucus. Use your inhalers and nebulizer, if you have one, as you have been told to. If you were given antibiotics, take them until they are used up or your doctor tells you to stop. It s important to finish the antibiotics, even though you feel better. This will make sure the infection has cleared. If you were given prednisone or another steroid, finish it even if you feel better. Preventing a flare-up Even though flare-ups happen, the best way to treat one is to prevent it before it starts. Here are some pointers: Don t smoke or be around others who are smoking. Take your medicines as you have been told. Talk with your doctor about getting a flu shot every year. Also find out if you need a p neumonia shot. If there is a weather advisory warning to stay indoors, try to stay inside when possible . Try to eat healthy and get plenty of sleep. Try to avoid things that usually set you off, like dust, chemical fumes, hairsprays, or strong perfumes. Follow-up care Follow up with your healthcare provider, or as advised. If a culture was done, you will be told if your treatment needs to be changed. You can call as directedfor the results. If X-rays were done, you will be notified of any new findings that may affect your care. Call 911 Call 911 if any of these occur: You have trouble breathing You feel confused or it s difficult to wake you up You faint or lose consciousness You have a rapid heart rate You have new pain in your chest, arm, shoulder, neck or upper back When to seek medical advice Call your healthcare provider right awayifany of these occur: Wheezing or shortness of breath gets worse You need to use your inhalers more often than usual without relief Fever of 100.4F(38C) or higher, or as directed by your healthcare provider Coughing up lots of dark-colored or bloody mucus (sputum) Chest pain with each breath You do not start to get better within 24 hours Swelling of your ankles gets worse Dizziness or weakness Date Last Reviewed: 12/19/201519998606-0428 [employer]. [address] [place] [address]. All righ ts reserved. This information is not intended as a substitute for professional medical care. Always follow your healthcare professional's instructions. documented in this encounter Progress Notes Navdeep Grande MD - 07/18/2018 1:30 PM PDTFormatting of this note might be different f rom the original. Pulmonary Follow Up 07/18/2018 HPI Kait Min is a 48 y.o. female patient of ZEB Singleton here today for follow u p of probable COPD based on the patient's smoking history, alveolar hypoventilation and obst ructive sleep apnea. The last pulmonary clinic visit was on 05/20/18. Since their last appointment they feel like their breathing issues have been increasing. Ms. Min reports 2 hospitalizations in 2018 at [facility] in [facility]. From the patient's description it so unds as if the first hospitalization was for "pneumonia" and the second hospitalization for "gastroenteritis". Ms. Min was seen last week by a nurse practitioner and Dr. Rosen's office (patient joellen ot recall the individuals name). She states that she was again diagnosed with "pneumonia" a nd was treated with prednisone and doxycycline. Her symptoms are mildly improving. Kait is scheduled to be evaluated by Dr. Walker on July 28. Apparently the [employer] removed her IVAPS from the home within the last several weeks. Currently Ms. Min is wearing supplemental oxygen at 4 L/min at night while she sleeps. Otherwise she wears he r supplemental oxygen at 3 L/min most of the time. The patient is currently on a daily regimen of Advair for their COPD. They do not feel lik e this medication regimen is/are controlling their symptoms. Currently she is using their s hort acting bronchodilator, ProAir, up to 3 times a day. Currently the patient is able to walk 100 feet at their own pace on level ground before dev eloping dyspnea. They are not exercising regularly. Their typical exercise consists of minim al walking. Kait are not enrolled in cardiac/pulmonary rehabilitation. They have not comp leted pulmonary rehabilitation in the past. Kait does cough chronically and does produce mucous. The mucous is Yellow in color. They have not had hemoptysis since our last appointment. They have not reported recent symptoms of nasal congestion, runny nose or post nasal drip. The patient have received this year's influenza vaccination. They are up to date with thei r Pneumovax and Prevnar 13. Patient continues to smoke a pack of cigarettes a day. Ms. Min apparently was evaluated by her internal medicine hospitalist, Dr. Becerra, within the last several weeks in [facility]. No co ncerns were identified regarding her therapy (Imuran) or the status of her rheumatoid arthri tis. Past Medical History Past Medical History: Diagnosis Date Abnormal chest CT Most likely postoperative decortication changes Acid reflux disease Bipolar 1 disorder (HCC) CHRONIC TENSION HEADACHE Classical migraine without mention of intractable migraine Diabetes mellitus, type 2 (HCC) Empyema lung (HCC) 2005 right GI bleeding Hypercholesterolemia Hypertension Hypothyroidism IBS (irritable bowel syndrome) Knee pain Lumbago Lymphedema Nausea and vomiting Nocturia Obesity Panic anxiety syndrome Pneumonia Pyoderma gangreosum-LE Reflux esophagitis Restless leg syndrome Urinary hesitancy Vitamin D deficiency Wrist pain Social History: She reports that she has been smoking Cigarettes. She started smoking about 35 years ago. [...] the evening, Disp: , Rfl: buprenorphine (BUTRANS) 15 mcg/hr patch, Place 1 patch onto the skin Once a week., Dis p: , Rfl: busPIRone (BUSPAR) 5 mg tablet, Take 5 mg by mouth 2 times daily., Disp: , Rfl: cloNIDine (CATAPRES) 0.2 mg/24 hr patch, Place 1 patch onto the skin Once a week., Dis p: , Rfl: doxycycline (ADOXA) 100 MG tablet, Take 100 mg by mouth Daily., Disp: , Rfl: ergocalciferol (VITAMIN D-2) 50,000 units capsule, Take 50,000 Units by mouth Once a w [place]., Disp: , Rfl: fluticasone-salmeterol (ADVAIR DISKUS) 250-50 mcg/puff diskus inhaler, Inhale 1 puff i nto the lungs Twice Daily., Disp: 1 each, Rfl: 11 LANTUS SOLOSTAR 100 UNIT/ML injection (pen), Inject 20 Units under the skin nightly., Disp: , Rfl: levothyroxine (SYNTHROID, LEVOTHROID) 300 MCG tablet, Take 400 mcg by mouth Daily., Di sp: , [...] mouth as needed. , Disp: , Rfl: predniSONE (DELTASONE) 20 mg tablet, Take 60 mg by mouth Daily., Disp: , Rfl: promethazine (PHENERGAN) 25 mg [...] Rfl: torsemide (DEMADEX) 20 mg tablet, Take 25 mg by mouth Daily., Disp: , Rfl: traZODone (DESYREL) 100 mg tablet, Take 300 mg by mouth nightly., Disp: , Rfl: UNIFINE PENTIPS 31G X 8 MM, Daily., Disp: , Rfl: verapamil (CALAN SR) 240 mg SR tablet, Take 2 tablets by mouth nightly., Disp: , Rfl: ziprasidone (GEODON) 60 MG [...] QUADR W/PRES (PED/ADOL/ADULT) MULTIDOSE 01/27/2017, 02/10/2018 INFLUENZA, UNSPECIFIED FORMULATION 02/03/2012, 01/10/2013 PNEUMOCOCCAL CONJUGATE 13-VALENT (PCV13) 03/19/2013, 04/24/2014 PNEUMOCOCCAL POLYSACCHARIDE 23-VALENT (PPSV23) 04/04/2009, 03/19/2013, 01/10/2015 TDAP, (ADOL/ADULT) 08/29/2011 Objective BP 140/80 | Pulse 97 | Ht 1.702 m (5' 7") | Wt 110.3 kg (243 lb 2.7 oz) | SpO2 95% Comm ent: 3L PULSE | BMI 38.09 kg/m Physical Exam Constitutional: She is oriented [...] show no clubbing. Psychiatric: Affect normal. Data: None Assessment 1. COPD exacerbation apparent based on the patient's history and recent prescribed thera py (specifically doxycycline and prednisone). I do not appreciate findings concerning for c ommunity-acquired pneumonia on physical exam today. I have suggested to Kait that she complete her courses of prednisone and doxycycline. Zeb tang was also encouraged to use her Pro Air inhaler as needed. Close pulmonary follow-up is recommended. 2. Recent pneumonia substantiating information not available at the time of this documen tation. However Ms. Min does have significant risk factors for the development of pneumon ia including rheumatoid arthritis, immunosuppression with Imuran and heavy tobacco use. The patient is up-to-date with respect to her seasonal influenza vaccination, Prevnar and P neumovax. 3. Alveolar hypoventilation oxygen requirements appear near baseline. Recent problems noted with patient tolerance of IVAPS. The machine was recently removed from the home. Ms. Min is scheduled to see Dr. Walker in the near future. It is my hope that he can sett le up on PAP that is better tolerated by the patient. 4. COPD currently treated with Advair and as needed Pro Air. Patient continues to use t obacco. Total duration of the patient's clinic appointment was in excess of 30 minutes. Greater th an 50% of time was spent in counseling related to management of her apparent COPD exacerbati on recent episodes of "pneumonia". Plan 1. No change in the patient's COPD medication regimen. 2. Smoking cessation was strongly encouraged. Patient directed information was supplied. 3. Pulmonary clinic follow-up appointment in 4 weeks time. 4. I have requested to Ms. Min that her non-[place] providers forward copies of their assessments for my review. CC: Ora Slater, PA documented in this encounter Plan of Treatment +--------+---------+ + + + | Date | Type | Specialty | Care Team | Description | +--------+---------+ + + + | 09/27/ | Office | Pulmonology | Navdeep Grande, | | | 2019 | Visit | | [address] | | | | | | [place] | | | | | | [address] | | | | | | | | +--------+---------+ + + + | 11/05/ | Office | Neurology | Tariq, | | | 2019 | Visit | | [address] | | | | | | [address] [facility], | | | | | | [place] [address] | | | | | | [phone] | | | | | | | | +--------+---------+ + + + documented as of this encounter Visit Diagnoses + + | Diagnosis | + + | COPD exacerbation (HCC) - Primary Obstructive chronic bronchitis with exacerbation | + + | COPD, mild (HCC) Chronic airway obstruction, not elsewhere classified | + + | Alveolar hypoventilation Other dyspnea and respiratory abnormality | + + | Hypoxemia | + + | Tobacco use disorder | + + documented in this encounter
--- OUTSIDE RECORDS SUMMARY | ~2019-09-02 | XMS | Encounter Summary ---
Demographics + + + | Address | [address] | | | [place] [address] | + + + | Home Phone | | + + + | Preferred Language | Unknown | + + + | Marital Status | Single | + + + | Restorationism Affiliation | CHR | + + + [...] | | | | | [place] [address] | | + + + + + Care Team Providers + +------+ + | Care Tool Crib Manager Name | Role | Phone | + +------+ + PCP | Unavailable | + +------+ + Encounter Details +--------+ + + + + | Date | Type | Department | Care Team | Description | +--------+ + + + + | 10/23/ | Respiratory | | Other, Faculty | | | 2006 | Therapy | | [phone] | | +--------+ + + + + [...] this | | | e | 3:29 AM | | procedure are in the | | | | PDT | | results section. | + +--------+ + + + documented in this encounter Results MEDICAL GAS/HUMIDITY (10/23/2005 3:29 AM PDT) + + + + + + | Component | Value | Ref Range | Performed | Pathologist | | | | | At | Signature | + + + + + + | [facility] | OXYGEN OR HUMIDITY ON | | | | | GAS/HUMIDIT | [address]. [place] | | | | | Cindy | [facility]T [place] | | | | + + + [...] [facility] | [address] | [place], [place] | | | DIAGNOSTICS - | [address] | [address] | | | PULMONARY FUNCTION | | | | + + + + + documented in this encounter Visit Diagnoses Not on filedocumented in this encounter"
--- OUTSIDE RECORDS SUMMARY | ~2019-09-02 | XMS | Encounter Summary ---
Demographics + + + | Address | [address] | | | [place] [address] | + + + | Home Phone | | + + + | Preferred Language | Unknown | + + + | Marital Status | Single | + + + | Alevism Affiliation | Unknown | + + + | Race | Unknown | + + + | Ethnic Group | Unknown | + + + Author + + + | Author | [facility] | | | and [place] | + + + | Organization | [facility] | | [...] | | | | | [place] [address] | | + + + + + | Robson Min | ECON | Unknown | | + + + + + | Isabella Whitehead | ECON | Unknown | | + + + + + | Seven Neff | ECON | Unknown | | + + + + + Care Team Providers + +------+ + | Care Collateral Clerk Name | Role | Phone | [...] | | | | | | w wo | MD [address] | | | | | | Contrast | [address] | | | | | | | [address] | | | | | | | [place] | | | | | | | [address] | | | | | | | Phone: | | | | | | | [phone] | | | | | | | Fax: | | | | | | | [phone] | | +--------+--------+ + + + + [...] | Specialty | Neurology | Diagnoses | Mejia, | Yao, | | | Services | | | Bart Bell DO | Jimbo Box MD | | | Required | | Disorientati | [address] | [address] | | | | | on, | [address] | [place] | | | | | unspecified | [address] | [place] | | | | | Procedures | [address] | [address] Phone: | | | | | Specialty | [place] | [phone] | | | | | Services | [address] | Fax: | | | | | Required | Phone: | [phone] | | | | | | [phone] | | +--------+ + + + + [...] [address] | [place] | hyperosmolarity | | | | DR KACI [place], | [address] | without coma, | | | | [place] [address] | | without long-term | | | | [phone] | | current use of | | [...] mellitus | | | | | | ([facility]); Dizziness | +--------+---------+ + + + Social [...] be different from the original. Patient Instructions [facility] Neurology Clinic Dr. Jimbo Samayoa, Neurologist Date:02/23/2018 [...] le, and scrabble, other puzzle games like [employer], [employer]. Play computer/mobile applications such as [employer] and [employer] GAMES Avoid sleep deprivation, alcohol, stimulants, or any type of head trauma Any Questions please call MARTHA Matthew or Dr. Samayoa at [facility] Neurology Clinic Altered Level of Consciousness Level [...] return New symptoms appear Date Last Reviewed: 12/09/201419996745-5544 [employer]. [address] [place] [address]. All righ ts reserved. This information is [...] joint. Hot and cold packs may help. Dwmc-mlx-jbwcgyz and prescription medicines can be ve ry helpful for arthritis. Talk with your healthcare provider about the best treatments for y our condition. Date Last Reviewed: 08/17/201619998043-3864 [employer]. [address] [place] [address]. All righ ts reserved. This information is [...] you take. This includes prescription an d nkxs-vny-segfygk medicines, vitamins, and herbs. Ask if any of the medicines may be causin g your problems. Don't make any changes to prescription medicines without talking to your he althcare provider first. You may be prescribed medicines [...] speaking, walking, or seeing Date Last Reviewed: 06/17/201719994811-4619 [employer]. [address] [place] [address]. All righ ts reserved. This information is [...] massage, and other methods. Date Last Reviewed: 04/19/2017 2312-8040 [employer]. [address] [place] [address], [place] [address]. All [facility] ts reserved. This information is not intended [...] acupuncture, massage, and others. Date Last Reviewed: 03/19/201719998883-[address] [employer] [place] [address], [place] [address]. All righ ts reserved. This information is not intended as a substitute for professional medical care. Always follow your healthcare professional's instructions. documented in this encounter Plan of Treatment +--------+---------+ + + + | Date | Type | Specialty | Care Team | Description | +--------+---------+ + + + | 09/27/ | Office | Pulmonology | Navdeep Grande, | | 2019 | Visit | | MD Cely GORE | | | | | | [place] | | | | | | [id number] | | | | | | | | +--------+---------+ + + + | 11/05/ | Office | Neurology | Tariq, | | 2019 | Visit | | [address] | | | | | [address] [place], | | | | | | [place] [address] | | | | | | [phone] | | | | | | | [...] + | Ernestine Jimenez MD 03/15/2018 12:45 Name:Kiat Anderson | | Pako :1970 DATE OF SERVICE: [...] care of this | | | patient. Ernestine Jimenez MD03/15/201812:44 Electronically | | | signed [...]
--- OUTSIDE RECORDS SUMMARY | ~2019-09-02 | XMS | Encounter Summary ---
Demographics + + + | Address | [address] | | | [place] [address] | + + + | Home Phone | | + + + | Preferred Language | Unknown | + + + | Marital Status | Single | + + + | Jain Affiliation | Unknown | + + + | Race | Unknown | + + + | Ethnic Group | Unknown | + + + Author + + + | Author | [facility] | | | and [place] | + + + | Organization | [facility] | | | [...] | | | | | [place] [address] | | + + + + + | Robson Min | ECON | Unknown | | + + + + + | Isabella Whitehead | ECON | Unknown | | + + + + + | Seven Neff | ECON | Unknown | | + + + + + Care Team Providers + +------+ + | Care Middle School Science Teacher Name | Role | Phone | [...] + + | 09/21/ | Telephone | [facility] | Cecilio Amato MD | Other | | 2013 | | GASTROENTEROLOGY | [address] | (gastroparesis) | | | | [address] [facility] | [place], [place] | | | | | [address] | [address] | | | | | [address] | [phone] | | | | | [phone] | | | +--------+ + + + [...] [place] | | | | | | [address] | | | | | | | | +--------+---------+ + + + | 11/05/ | Office | Neurology | Tariq, | | | 2019 | Visit | | [address] | | | | | | [address] [facility], | | | | | | [place] [address] | | | | | | [phone] | | | | | | | | +--------+---------+ + + + documented as of this encounter Visit Diagnoses Not on filedocumented in this encounter"
--- OUTSIDE RECORDS SUMMARY | ~2019-09-02 | XMS | Encounter Summary ---
Demographics + + + | Address | [address] | | | [place] [address] | + + + | Home Phone [...] | | | | | [place] [address] | | + + + + + Care Team Providers + +------+ + | Care Technical Operations Vice President Name | Role | Phone | + +------+ + PCP | Unavailable | + +------+ + Encounter Details +--------+ + + + + | Date | Type | Department | Care Team | Description | +--------+ + + + + | 12/03/ | Results | | Other, Faculty | | | 2002 | Only | | [phone] | | +--------+ + + + + [...] DEPARTMENT OF | [address] | [place] [address] | | | PATHOLOGY | [address] | | | + + + + + | [facility] | [address] | [place] [address] | | | PATHOLOGY | [address] | | | + + + + + documented in this encounter Visit Diagnoses Not on filedocumented in this encounter"
--- OUTSIDE RECORDS SUMMARY | ~2019-09-02 | XMS | Encounter Summary ---
Demographics + + + | Address | [address] | | | [place] [address] | + + + | Home Phone | | + + + | Preferred Language | Unknown | + + + | Marital Status | Single | + + + | Rastafari Affiliation | Unknown | + + + [...] | | | | | [place] [address] | | + + + + + | Robson Min | ECON | Unknown | | + + + + + | Isabella Whitehead | ECON | Unknown | | + + + + + | Seven Neff | ECON | Unknown | | + + + + + Care Team Providers + +------+ + | Care Cash Crop Farmer Name | Role | Phone | + +------+ + | Juanito Avery | PCP | | + +------+ + Reason for Visit Auth/Cert +--------+--------+ + + + + | Status | Reason | Specialty | Diagnoses / | Referred By | Referred To | | | | | Procedures | Contact | Contact | +--------+--------+ + + + + | | | | Diagnoses | | | | | | | Acute | | | | | | | respiratory | | | | | | | failure with | | | | | | | hypoxia and | | | | | | | hypercapnia | | | | | | | (HCC) | | | | | | | Acute renal | | | | | | | failure with | | | | | | | other | | | | | | | specified | | | | | | | pathological | | | | | | | lesion in | | | | | | | kidney (HCC) | | | | | | | Pneumonia | | | | | | | of both | | | | | | | lungs due to | | | | | | | infectious | | | | | | | organism, | | | | | | | unspecified | | | | | | | part of lung | | | | | | | Acute | | | | | | | metabolic | | | | | | | encephalopat | | | | | | | hy | | | +--------+--------+ + + + + Encounter Details +--------+---------+ + + + | Date | Type | Department | Care Team | Description | +--------+---------+ + + + | 08/15/ | Office | [facility] | Tariq, | Confusion and | | 2019 | Visit | [facility] | [address] | disorientation | | | | CLINIC [address] | [address] [facility], | | | | | [address] [place], | [place] [address] | | | | | [place] [address] | [phone] | | | | | [phone] | | | +--------+---------+ + + + [...] + | Blood Pressure | 118/72 | 08/15/2018 8:28 AM | | | | | PDT | | + +---------+ + + | Pulse | 73 | 08/15/2018 8:28 AM | | | | | PDT | | + +---------+ + + | Temperature | - | - | | + +---------+ + + | Respiratory Rate | 16 | 08/15/2018 8:28 AM | | | | | PDT | | + +---------+ + + | Oxygen Saturation | 79% | 08/15/2018 8:28 AM | | | | | PDT [...] + documented in this encounter Progress Notes Theo Potter FNP - 08/15/2018 8:15 AM PDT I was called into the room by the nurse for oxygen saturation 79-82% on RA. Patient does h ave a history of diabetes and COPD the previous oxygen saturations were greater than 95%. T he patient also has a buprenorphine patch in place. Pupils are pinpoint. Patient does not appear to be in respiratory distress or coughing at this time. She did disclose that she gooden s had pneumonia recently. She was confused with slurred speech and difficulty keeping her e yes open. Vitals: 08/15/18 0828 BP: 118/72 Pulse: 73 Resp: 16 SpO2: (!) 79% Patient was placed on 2 L nasal cannula with recovery of oxygen saturation to 90%. EMS was called. Report called to the emergency room. Mental status: The patient is lethargic and confused. Speech is slurred and difficult to understand. Cranial nerves: CN II: Pupils are pinpoint. CN III, IV, : Gaze in conjugate. No blurred or double vision. CN V: Facial sensation is intact. CN VII: Face is symmetric with normal eye closure and smile. CN VII: Hearing is normal to rubbing fingers CN IX, X: Palate elevates symmetrically. Phonation is normal. CN XI: Head turning and shoulder shrug are intact CN XII: Tongue is midline with normal movements and no atrophy. Gait/Stance: Patient placed in wheelchair due to instability and near fall in waiting room. Tiff Pfeiffer R N - 08/15/2018 8:15 AM PDTPt was here for follow up appointment in Neurology. Karla vazquez MA called me into exam room, and stated pt appears very confused, and slurring speech. Vital signs BP 118/72, Pulse 75, O2 Sat 79-82%. Pt had slurring speech, very confused, disor iented, swollen eye lids. Notified [place], [place], and ambulance called. Pt was put on 3 L Oxy gen per Theo, [place], O2 sats increased to 91 %. Ambulance did CBG, stated it was 260. Pt t ransported to [facility] documented in thi s encounter Plan of Treatment +--------+---------+ + + + | Date | Type | Specialty | Care Team | Description | +--------+---------+ + + + | 09/27/ | Office | Pulmonology | Navdeep Grande, | | | 2019 | Visit | | MD Cely GORE | | | | | | [place] | | | | | | [address] | | | | | | | | +--------+---------+ + + + | 11/05/ | Office | Neurology | Tariq, | | | 2019 | Visit | | [address] | | | | | | [address] [facility], | | | | | | [place] [address] | | | | | | [phone] | | | | | | | | +--------+---------+ + + + documented as of this encounter Visit Diagnoses + + | Diagnosis | + + | Confusion and disorientation | + + documented in this encounter"
--- OUTSIDE RECORDS SUMMARY | ~2019-09-02 | XMS | Encounter Summary ---
Demographics + + + | Address | [address] | | | [place] [address] | + + + | Home Phone [...] + + + | Author | [facility] | | | and [place] | + + + | Organization | [facility] | | | [...] | | | | | [place] [address] | | + + + + + | Robson Min | ECON | Unknown | | + + + + + | Isabella Whitehead | ECON | Unknown | | + + + + + | Seven Neff | ECON | Unknown | | + + + + + Care Team Providers + +------+ + | Care Technology Resource Teacher Name | Role | Phone | + +------+ + | Juanito Avery | PCP | | + +------+ + Encounter Details +--------+ + + + + | Date | Type | Department | Care Team | Description | +--------+ + + + + | 06/28/ | Imaging | [facility] | Provider, | | | 2020 | Exam | [facility] | MD Shira [address] | | | | | IMAGING [address] | [address] | | | | | [address] | [place] [address] | | | | | [place] [address] | | | | | | [phone] | | | +--------+ + + + [...] [place] | | | | | | [address] | | | | | | | | +--------+---------+ + + + | 11/05/ | Office | Neurology | Tariq, | | | 2019 | Visit | | [address] | | | | | | [address] [facility], | | | | | | [place] [address] | | | | | | [phone] | | | | | | | | +--------+---------+ + + + documented as of this encounter Procedures + +--------+ + + + | Procedure Name | Priori | Date/Time | Associated Diagnosis | Comments | | | ty | | | | + +--------+ + + + | XR CHEST AP PORTABLE | Routin | 06/21/2019 | | Results for this | | | e | 12:00 AM | | procedure are in the | | | | PST | | results section. | + +--------+ + + + documented in this encounter Results XR Chest AP Portable (06/21/2019 12:00 AM PST) + + | Specimen | [...]
--- OUTSIDE RECORDS SUMMARY | ~2019-09-02 | XMS | Encounter Summary ---
Demographics + + + | Address | [address] | | | [place] [address] | + + + | Home Phone [...] | | | | | [place] [address] | | + + + + + Care Team Providers + +------+ + | Care Structures Assembler Name | Role | Phone | + [...] [address] | | | | | [place] | [place] | | | | | [address] | [address] | | | | | [phone] | [phone] | | | | | | | [...] + + | Performing | Address | City[facility]State[facility] | Phone Number | | Organization | | | | + +---------+ + + | [facility] DEPARTMENT OF | | | | | [...] | | + +---------+ + + | [facility] DEPARTMENT OF | | | | | [...] | + + + + + | [facility] | [facility] | [place] [address] | | | PATHOLOGY | [address] | | | + + + + + | [facility] | [facility] | [place] [address] | | | PATHOLOGY | [address] [...] DEPARTMENT OF | [address] | [place] [address] | | | PATHOLOGY | [address] | | | + + + + + | [facility] DEPARTMENT OF | [address] | [place] [address] | | | PATHOLOGY | [address] [...] | + + + + + | [facility] DEPARTMENT OF | [address] | [place] [address] | | | PATHOLOGY | [address] | | | + + + + + | [facility] DEPARTMENT OF | [address] | [place] [address] | | | PATHOLOGY | [address] [...] | + + + + + | [facility] | [address] | [place] [address] | | | PATHOLOGY | [address] | | | + + + + + | [facility] | [address] | [place] [address] | | | PATHOLOGY | [address] [...] | | + +---------+ + + | [facility] DEPARTMENT OF | | | | | [...] | + + + + + | [facility] DEPARTMENT OF | [facility] | [place] [address] | | | PATHOLOGY | [address] | | | + + + + + | [facility] DEPARTMENT OF | [facility] | [place] [address] | | | PATHOLOGY | [address] [...] | + + + + + | [facility] DEPARTMENT OF | [address] | [place] [address] | | | PATHOLOGY | [address] | | | + + + + + | [facility] DEPARTMENT OF | [address] | [place] [address] | | | PATHOLOGY | [address] [...] | + + + + + | [facility] DEPARTMENT OF | [facility] | [place] [address] | | | PATHOLOGY | [address] | | | + + + + + | [facility] DEPARTMENT OF | [facility] | [place] [address] | | | PATHOLOGY | [address] [...] | + + + + + | [facility] DEPARTMENT OF | [address] [facility] | [place] [address] | | | PATHOLOGY | [address] | | | + + + + + | [facility] DEPARTMENT OF | [address] [facility] | [place] [address] | | | PATHOLOGY | [address] [...] | + + + + + | [facility] | [address] [facility] | [place] [address] | | | PATHOLOGY | [address] | | | + + + + + | [facility] | [address] [place] [address] | [place] [address] | | | PATHOLOGY | [address] [...] | + + + + + | [facility] DEPARTMENT OF | [address] | [place] [address] | | | PATHOLOGY | [address] | | | + + + + + | [facility] DEPARTMENT OF | [facility] | [place] [address] | | | PATHOLOGY | [address] [...] | + + + + + | [facility] DEPARTMENT | [address] [facility] | [place] [address] | | | PATHOLOGY | [address] | | | + + + + + | [facility] | [address] [facility] | [place] [address] | | | PATHOLOGY | [address] [...] DEPARTMENT OF | [address] | [place] [address] | | | PATHOLOGY | [address] | | | + + + + + | [facility] DEPARTMENT OF | [address] | [place] [address] | | | PATHOLOGY | [address] | | | + + + [...] | + + + + + | [facility] | [address] [facility] | [place] [address] | | | PATHOLOGY | [address] | | | + + + + + | [facility] | [address] [facility] | [place] [address] | | | PATHOLOGY | [address] [...] DEPARTMENT OF | [address] | [place] [address] | | | PATHOLOGY | [address] | | | + + + + + | [facility] DEPARTMENT OF | [address] | [place] [address] | | | PATHOLOGY | [address] [...] DEPARTMENT OF | [address] | [place] [address] | | | PATHOLOGY | [address] | | | + + + + + | [facility] DEPARTMENT OF | [address] | [place] [address] | | | PATHOLOGY | [address] [...] | + + + + + | [facility] DEPARTMENT OF | [address] | [place] [address] | | | PATHOLOGY | [address] | | | + + + + + | [facility] DEPARTMENT OF | [address] | [place] [address] | | | PATHOLOGY | [address] [...] | + + + + + | [facility] | [address] [facility] | [place] [address] | | | PATHOLOGY | [address] | | | + + + + + | [facility] | [address] [facility] | [place] [address] | | | PATHOLOGY | [address] [...] | + + + + + | [facility] DEPARTMENT OF | [address] [facility] | [place] [address] | | | PATHOLOGY | [address] | | | + + + + + | [facility] DEPARTMENT OF | [address] [facility] | [place] [address] | | | PATHOLOGY | [address] [...] | + + + + + | [facility] DEPARTMENT | [address] [facility] | [place] [address] | | | PATHOLOGY | [address] | | | + + + + + | [facility] DEPARTMENT OF | [address] [facility] | [place] [address] | | | PATHOLOGY | [address] [...] | + + + + + | [facility] | [facility] | [place] [address] | | | PATHOLOGY | [address] | | | + + + + + | [facility] | [address] [place] [address] | [place] [address] | | | PATHOLOGY | [address] [...] | + + + + + | [facility] DEPARTMENT OF | [address] | [place] [address] | | | PATHOLOGY | [address] | | | + + + + + | [facility] DEPARTMENT | [address] | [place] [address] | | | PATHOLOGY | [address] [...] | + + + + + | [facility] DEPARTMENT | [address] [place] [address] | [place] [address] | | | PATHOLOGY | [address] | | | + + + + + | [facility] | [address] [place] [address] | [place] [address] | | | PATHOLOGY | [address] [...] + | [facility] DEPARTMENT OF | [address] [facility] | [place] [address] | | | PATHOLOGY | [address] | | | + + + + + | [facility] DEPARTMENT OF | [address] [facility] | [place] [address] | | | PATHOLOGY | [address] [...] | + + + + + | [facility] | [address] [facility] | [place] [address] | | | PATHOLOGY | [address] | | | + + + + + | [facility] | [address] [facility] | [place] [address] | | | PATHOLOGY | [address] [...] | | + +---------+ + + | [facility] DEPARTMENT OF | | | | | [...] | | + +---------+ + + | [facility] DEPARTMENT OF | | | | | [...] | + + + + + | [facility] DEPARTMENT | [facility] | [place] [address] | | | PATHOLOGY | [address] | | | + + + + + | [facility] DEPARTMENT OF | [facility] | [place] [address] | | | PATHOLOGY | [address] [...] DEPARTMENT OF | [address] | [place] [address] | | | PATHOLOGY | [address] | | | + + + + + | [facility] DEPARTMENT OF | [address] | [place] [address] | | | PATHOLOGY | [address] [...] | + + + + + | [facility] | [facility] | [place] [address] | | | PATHOLOGY | [address] | | | + + + + + | [facility] DEPARTMENT OF | [facility] | [place] [address] | | | PATHOLOGY | [address] [...] + | [facility] DEPARTMENT OF | [address] [facility] | [place] [address] | | | PATHOLOGY | [address] | | | + + + + + | [facility] DEPARTMENT OF | [address] [facility] | [place] [address] | | | PATHOLOGY | [address] [...] | + + + + + | [facility] | [address] | [place] [address] | | | PATHOLOGY | [address] | | | + + + + + | [facility] | [address] | [place] [address] | | | PATHOLOGY | [address] [...] DEPARTMENT OF | [address] | [place] [address] | | | PATHOLOGY | [address] | | | + + + + + | [facility] DEPARTMENT OF | [address] | [place] [address] | | | PATHOLOGY | [address] [...] | + + + + + | [facility] | [address] [facility] | [place] [address] | | | PATHOLOGY | [address] | | | + + + + + | [facility] | [address] [place] [address] | [place] [address] | | | PATHOLOGY | [address] [...] | + + + + + | [facility] | [address] [facility] | [place] [address] | | | PATHOLOGY | [address] | | | + + + + + | [facility] | [address] [facility] | [place] [address] | | | PATHOLOGY | [address] [...] | + + + + + | [facility] DEPARTMENT OF | [address] [facility] | [place] [address] | | | PATHOLOGY | [address] | | | + + + + + | [facility] DEPARTMENT OF | [address] [facility] | [place] [address] | | | PATHOLOGY | [address] [...] | + + + + + | [facility] DEPARTMENT | [address] [facility] | [place] [address] | | | PATHOLOGY | [address] | | | + + + + + | [facility] | [address] [facility] | [place] [address] | | | PATHOLOGY | [address] [...] DEPARTMENT OF | [address] | [place] [address] | | | PATHOLOGY | [address] | | | + + + + + | [facility] DEPARTMENT OF | [address] | [place] [address] | | | PATHOLOGY | [address] [...] | + + + + + | [facility] DEPARTMENT OF | [address] | [place] [address] | | | PATHOLOGY | [address] | | | + + + + + | [facility] DEPARTMENT OF | [facility] | [place] [address] | | | PATHOLOGY | [address] [...] | + + + + + | [facility] DEPARTMENT OF | [address] | [place] [address] | | | PATHOLOGY | [address] | | | + + + + + | [facility] DEPARTMENT OF | [address] | [place] [address] | | | PATHOLOGY | [address] [...] | + + + + + | [facility] | [address] [facility] | [place] [address] | | | PATHOLOGY | [address] | | | + + + + + | [facility] | [address] [place] [address] | [place] [address] | | | PATHOLOGY | [address] [...] + + + | [facility] | [address] | [place] [address] | | | LAB-MICRO | | | [...] | | | | | performed at [facility] | | | | | | [facility] | | | | | | Laboratory. | | | | + + + + + + + + | Specimen | + + | | + + + + + + + | Performing | Address | City/State/Zipcode | Phone Number | | Organization | | | | + + + + + | [facility] | [address] | [place] [address] | | | LAB-MICRO | | | [...] | + + + + + | [facility] | [address] | [place] [address] | | | LAB-MICRO | | | [...] + + + | [facility] | [address] | [place] [address] | | | LAB-MICRO | | | [...] | | | | | performed at [facility] | | | | | | [facility] | | | | | | Laboratory | | | | + + + + + + + + | Specimen | + + | | + + + + + + + | Performing | Address | City/State/Zipcode | Phone Number | | Organization | | | | + + + + + | [facility] | [address] | [place] [address] | | | LAB-MICRO | | | [...] + + + | [facility] | [address] | [place] [address] | | | LAB-MICRO | | | [...] | | | | Test performed at [facility] | | | | | | [facility] | | | | | | Laboratory. | | | | + + + + + + + + | Specimen | + + | | + + + + + + + | Performing | Address | City/State/Zipcode | Phone Number | | Organization | | | | + + + + + | [facility] | [address] | [place] [address] | | | LAB-MICRO | | | [...] | + + + + + | [facility] DEPARTMENT OF | [address] [facility] | [place] [address] | | | PATHOLOGY | [address] | | | + + + + + | [facility] DEPARTMENT OF | [address] [facility] | [place] [address] | | | PATHOLOGY | [address] [...] | + + + + + | [facility] | [address] | [place] [address] | | | LAB-MICRO | | | [...] | | | | | performed at [facility] | | | | | | [facility] | | | | | | Laboratory. | | | | + + + + + + + + | Specimen | + + | | + + + + + + + | Performing | Address | City/State/Zipcode | Phone Number | | Organization | | | | + + + + + | [facility] | [address] | [place] [address] | | | LAB-MICRO | | | [...] + + + + + | [facility] | [address] | [place] [address] | | | LAB-MICRO | | | [...] + + + | [facility] | [address] | [place] [address] | | | LAB-MICRO | | | [...] | | | | | performed at [facility] | | | | | | [facility] | | | | | | Laboratory | | | | + + + + + + + + | Specimen | + + | | + + + + + + + | Performing | Address | City/State/Zipcode | Phone Number | | Organization | | | | + + + + + | [facility] | [address] | [place] [address] | | | LAB-MICRO | | | [...] + + + | [facility] | [address] | [place] [address] | | | LAB-MICRO | | | [...] | | | | Test performed at [facility] | | | | | | [facility] | | | | | | Laboratory. | | | | + + + + + + + + | Specimen | + + | | + + + + + + + | Performing | Address | City/State/Zipcode | Phone Number | | Organization | | | | + + + + + | [facility] | [address] | [place] [address] | | | LAB-MICRO | | | [...] | + + + + + | [facility] DEPARTMENT OF | [address] | [place] [address] | | | PATHOLOGY | [address] | | | + + + + + | [facility] DEPARTMENT OF | [address] | [place] [address] | | | PATHOLOGY | [address] [...] | + + + + + | [facility] DEPARTMENT OF | [address] [place] [address] | [place] [address] | | | PATHOLOGY | [address] | | | + + + + + | [facility] DEPARTMENT OF | [address] | [place] [address] | | | PATHOLOGY | [address] [...] A | | | | | | solar sales representative section | | | | | [...] noted. | | | | | | Nephrologist | | | | | | sections [...] | + + + + + | [facility] | [address] | [place] [address] | | | PATHOLOGY | [address] | | | + + + + + | [facility] | [address] | [place] [address] | | | PATHOLOGY | [address] [...] + + + + | PRODUCT | [id number] | | [facility] | | | UNIT [...] DEPARTMENT OF | [address] | [place] [address] | | | PATHOLOGY | [address] | | | + + + + + | [facility] DEPARTMENT OF | [address] | [place] [address] | | | PATHOLOGY | [address] [...] + + + + | PRODUCT | [id number] | | [facility] | | | UNIT [...] | + + + + + | [facility] DEPARTMENT | [address] [facility] | [place] [address] | | | PATHOLOGY | [address] | | | + + + + + | [facility] | [address] [place] [address] | [place] [address] | | | PATHOLOGY | [address] [...] | + + + + + | [facility] DEPARTMENT OF | [facility] | [place] [address] | | | PATHOLOGY | [address] | | | + + + + + | [facility] DEPARTMENT OF | [facility] | [place] [address] | | | PATHOLOGY | [address] [...] | + + + + + | [facility] DEPARTMENT | [address] [facility] | [place] [address] | | | PATHOLOGY | [address] | | | + + + + + | [facility] DEPARTMENT OF | [address] [facility] | [place] [address] | | | PATHOLOGY | [address] [...] | + + + + + | [facility] | [address] [facility] | [place] [address] | | | PATHOLOGY | [address] | | | + + + + + | [facility] | [address] [place] [address] | [place] [address] | | | PATHOLOGY | [address] [...] | + + + + + | [facility] DEPARTMENT OF | [address] | [place] [address] | | | PATHOLOGY | [address] | | | + + + + + | [facility] DEPARTMENT OF | [address] | [place] [address] | | | PATHOLOGY | [address] [...] | + + + + + | [facility] | [address] | [place] [address] | | | PATHOLOGY | [address] | | | + + + + + | [facility] | [address] | [place] [address] | | | PATHOLOGY | [address] [...] DEPARTMENT OF | [address] | [place] [address] | | | PATHOLOGY | [address] | | | + + + + + | [facility] DEPARTMENT OF | [address] | [place] [address] | | | PATHOLOGY | [address] [...] DEPARTMENT OF | [address] | [place] [address] | | | PATHOLOGY | [address] | | | + + + + + | [facility] | [address] | [place] [address] | | | PATHOLOGY | [address] [...] DEPARTMENT OF | [address] | [place] [address] | | | PATHOLOGY | [address] | | | + + + + + | [facility] DEPARTMENT OF | [address] | [place] [address] | | | PATHOLOGY | [address] [...] | + + + + + | [facility] DEPARTMENT | [address] [facility] | [place] [address] | | | PATHOLOGY | [address] | | | + + + + + | [facility] | [address] [place] [address] | [place] [address] | | | PATHOLOGY | [address] [...] DEPARTMENT OF | [address] | [place] [address] | | | PATHOLOGY | [address] | | | + + + + + | [facility] DEPARTMENT OF | [address] [facility] | [place] [address] | | | PATHOLOGY | [address] [...] | + + + + + | [facility] | [address] [facility] | [place] [address] | | | PATHOLOGY | [address] | | | + + + + + | [facility] DEPARTMENT OF | [address] [facility] | [place] [address] | | | PATHOLOGY | [address] [...] | + + + + + | [facility] | [address] | [place] [address] | | | PATHOLOGY | [address] | | | + + + + + | [facility] | [address] | [place] [address] | | | PATHOLOGY | [address] [...] | + + + + + | [facility] | [facility] | [place] [address] | | | PATHOLOGY | [address] | | | + + + + + | [facility] DEPARTMENT OF | [facility] | [place] [address] | | | PATHOLOGY | [address] | | | + + + + + documented in this encounter Visit Diagnoses Not on filedocumented in this encounter"
--- OUTSIDE RECORDS SUMMARY | ~2019-09-02 | XMS | Encounter Summary ---
Demographics + + + | Address | [address] | | | [place] [address] | + + + | Home Phone | | + + + | Preferred Language | Unknown | + + + | Marital Status | Single | + + + | Faith Affiliation | CHR | + + + [...] | | | | | [place] [address] | | + + + + + Care Team Providers + +------+ + | Care Air Hammer Stripper Name | Role | Phone | + +------+ + PCP | Unavailable | + +------+ + Encounter Details +--------+ + + + + | Date | Type | Department | Care Team | Description | +--------+ + + + + | 10/31/ | Respiratory | | Other, Faculty | | | 2006 | Therapy | | [phone] | | +--------+ + + + + [...] | | TREATMENTS | e | 4:00 AM | | procedure are in the | | | | PDT | | results section. | + +--------+ + + + documented in this encounter Results ADULT AND SHRINERS TREATMENTS (10/31/2005 4:00 AM PDT) + + + + + + | Component | Value | Ref Range | Performed | Pathologist | | | | | At | Signature | + + + + + + | [facility] | BRONCHIAL HYGIENE | | | | | TREATMENTS | THERAPY NOT GIVEN. NOT | | | | | | INDICATED AT THIS TIME. | | | | | | Vinny Hackett, | | | | | | SILVERWARE SUPERVISOR | | | | + + [...] [facility] | [address] | [place] | | | DIAGNOSTICS - | [address] | [phone] | | | PULMONARY FUNCTION | | | | + + + + + documented in this encounter Visit Diagnoses Not on filedocumented in this encounter"
--- OUTSIDE RECORDS SUMMARY | ~2019-09-02 | XMS | Encounter Summary ---
Demographics + + + | Address | [address] | | | [place] [address] | + + + | Home Phone | | + + + | Preferred Language | Unknown | + + + | Marital Status | Single | + + + | Methodist Affiliation | CHR | + + + [...] | | | | | [place] [address] | | + + + + + Care Team Providers + +------+ + | Care Sports Physiotherapist Name | Role | Phone | + +------+ + PCP | Unavailable | + +------+ + Encounter Details +--------+ + + + + | Date | Type | Department | Care Team | Description | +--------+ + + + + | 10/31/ | Respiratory | | Other, Faculty | | | 2006 | Therapy | | [phone] | | +--------+ + + + + [...] this | | TREATMENTS | e | 9:29 AM | | procedure are in the | | | | PDT | | results section. | + +--------+ + + + documented in this encounter Results [facility] (10/31/2005 9:29 AM PDT) + + + + + [...] | | | | | | THERAPY. CLEAR . WEAK | | | | | | PRODUCTIVE COUGH: | | | | | | SWALLOWED MINIMAL | | | | | | IMPROVEMENT | | | | | | AFTERTREATMENT NASAL | | | | | | CANNULA AT 3.5 Timothy | | | | | | Rick, OPERATIONS AND MAINTENANCE SPECIALIST | | | | + + + [...] [facility] | [address] | [place], [place] | | | DIAGNOSTICS - | [address] | [phone] | | | PULMONARY FUNCTION | | | | + + + + + documented in this encounter Visit Diagnoses Not on filedocumented in this encounter"
--- OUTSIDE RECORDS SUMMARY | ~2019-09-02 | XMS | Encounter Summary ---
Demographics + + + | Address | [address] | | | [place] [address] | + + + | Home Phone [...] | | | | | [place] [address] | | + + + + + Care Team Providers + +------+ + | Care Financial Reporting Advisor Name | Role | Phone | + +------+ + PCP | Unavailable | + +------+ + Encounter Details +--------+ + + + + | Date | Type | Department | Care Team | Description | +--------+ + + + + | 10/31/ | Respiratory | | Other, Faculty | | | 2006 | Therapy | | [phone] | | +--------+ + + + + [...] Hackett, | | | | | | UTILIZATION COORDINATOR | | | | + + [...] [facility] | [address] | [place] | | | DIAGNOSTICS - | [address] | [phone] | | | PULMONARY FUNCTION | | | | + + + + + documented in this encounter Visit Diagnoses Not on filedocumented in this encounter"
--- OUTSIDE RECORDS SUMMARY | ~2019-09-02 | XMS | Encounter Summary ---
Demographics + + + | Address | [address] | | | [place] [address] | + + + | Home Phone | | + + + | Preferred Language | Unknown | + + + | Marital Status | Single | + + + | Hinduism Affiliation | Unknown | + + + | Race | Unknown | + + + | Ethnic Group | Unknown | + + + Author + + + | Author | [facility] | | | and [place] | + + + | Organization | [facility] | | [...] | | | | | [place] [address] | | + + + + + | Robson Min | ECON | Unknown | | + + + + + | Isabella Whitehead | ECON | Unknown | | + + + + + | Seven Neff | ECON | Unknown | | + + + + + Care Team Providers + +------+ + | Care Station Attendant Name | Role | Phone | + +------+ + | Ora Slater | PCP | | + +------+ + Encounter Details +--------+ + + + + | Date | Type | Department | Care Team | Description | +--------+ + + + + | 08/19/ | Imaging | [facility] | Provider, | | | 2019 | Exam | [facility] | MD [address] | | | | | IMAGING [address] | [address] | | | | | [address] | [place] [address] | | | | | [place] [address] | | | | | | [phone] | | | +--------+ + + + [...] [place] | | | | | | [address] | | | | | | | | +--------+---------+ + + + | 11/05/ | Office | Neurology | Tariq, | | | 2019 | Visit | | [address] | | | | | | [address] [place], | | | | | | [place] [address] | | | | | | [phone] | | | | | | | [...]
--- OUTSIDE RECORDS SUMMARY | ~2019-09-02 | XMS | Encounter Summary ---
Demographics + + + | Address | [address] | | | [place] [address] | + + + | Home Phone | | + + + | Preferred Language | Unknown | + + + | Marital Status | Single | + + + | Denominational Affiliation | CHR | + + + [...] | | | | | [place] [address] | | + + + + + Care Team Providers + +------+ + | Care Prepleater Name | Role | Phone | + +------+ + PCP | Unavailable | + +------+ + Encounter Details +--------+ + + + + | Date | Type | Department | Care Team | Description | +--------+ + + + + | 11/01/ | Respiratory | | Other, Faculty | | | 2006 | Therapy | | [phone] | | +--------+ + + + + [...] for this | | | e | 12:17 AM | | procedure are in the | | | | PDT | | results section. | + +--------+ + + + documented in this encounter Results MEDICAL GAS/HUMIDITY (11/01/2005 12:17 AM PDT) + + + + + + | Component | Value | Ref Range | Performed | Pathologist | | | | | At | Signature | + + + + + + | [facility] | NASAL CANNULA AT 2 | | | | | GAS/HUMIDIT | | | | | | Y | Lisa Wahl, STENO POOL SUPERVISOR | | | | + + [...] [facility] | [address] | [place], [place] | | | DIAGNOSTICS - | [address] | [address] | | | PULMONARY FUNCTION | | | | + + + + + documented in this encounter Visit Diagnoses Not on filedocumented in this encounter"
--- OUTSIDE RECORDS SUMMARY | ~2019-09-02 | XMS | Encounter Summary ---
Demographics + + + | Address | [address] | | | [place] [address] | + + + | Home Phone | | + + + | Preferred Language | Unknown | + + + | Marital Status | Single | + + + | Roman Catholic Affiliation | CHR | + + [...] | | | | | [place] [address] | | + + + + + Care Team Providers + +------+ + | Care Financial Intern Name | Role | Phone | + +------+ + PCP | Unavailable | + +------+ + Encounter Details +--------+ + + + + | Date | Type | Department | Care Team | Description | +--------+ + + + + | 10/29/ | Respiratory | | Other, Faculty | | | 2006 | Therapy | | [phone] | | +--------+ + + + + [...] [facility] | [address] | [place], [place] | | | DIAGNOSTICS - | [address] | [address] | | | PULMONARY FUNCTION | | | | + + + + + documented in this encounter Visit Diagnoses Not on filedocumented in this encounter"
--- OUTSIDE RECORDS SUMMARY | ~2019-09-02 | XMS | Encounter Summary ---
Demographics + + + | Address | [address] | | | [place] [address] | + + + | Home Phone [...] + + + | Author | [facility] | + + + | Organization | [facility] | + + + | Address | Unknown | + + + | Phone | Unavailable | + + + Support + + + + + | Name | Relationship | Address | Phone | + + + + + | Scot Johnson | ECON | [address] | | | | | [place] [address] | | + + + + + Care Team Providers + +------+ + | Care Personal Injury Law Specialist Name | Role | Phone | [...] | | | | | | [place] [address] | | | | | | [phone] | | | +--------+ + + + [...] + + + + + | [facility] | [address] | [place] [address] | | | LABORATORY | | | | + + + + + documented in this encounter Visit Diagnoses Not on filedocumented in this encounter"
--- OUTSIDE RECORDS SUMMARY | ~2019-09-02 | XMS | Encounter Summary ---
Demographics + + + | Address | [address] | | | [place] [address] | + + + | Home Phone | | + + + | Preferred Language | Unknown | + + + | Marital Status | Single | + + + | Alevism Affiliation | CHR | + + + [...] | | | | | [place] [address] | | + + + + + Care Team Providers + +------+ + | Care Host/Hostess Ground Name | Role | Phone | + +------+ + PCP | Unavailable | + +------+ + Encounter Details +--------+ + + + + | Date | Type | Department | Care Team | Description | +--------+ + + + + | 11/02/ | Respiratory | | Other, Faculty | | | 2006 | Therapy | | [phone] | | +--------+ + + + + [...] [facility] | [address] | [place], [place] | | | DIAGNOSTICS - | [address] | [address] | | | PULMONARY FUNCTION | | | | + + + + + documented in this encounter Visit Diagnoses Not on filedocumented in this encounter"
--- OUTSIDE RECORDS SUMMARY | ~2019-09-02 | XMS | Encounter Summary ---
Demographics + + + | Address | [address] | | | [place] [address] | + + + | Home Phone [...] Author + + + | Author | [facility] | + + + | Organization | [facility] | + + + | Address | Unknown | + + + | Phone | Unavailable | + + + Support + + + + + | Name | Relationship | Address | Phone | + + + + + | Scot Johnson | ECON | [address] | | | | | [place] [address] | | + + + + + Care Team Providers + +------+ + | Care Emergency Management Specialist Name | Role | Phone | + +------+ + PCP | Unavailable | + +------+ + Encounter Details +--------+ + + + + | Date | Type | Department | Care Team | Description | +--------+ + + + + | 12/03/ | Results | Medical Teaching | Emilee | | | 2002 | Only | Service [address] | MD [address] | | | | | [address] | [address] [address] | | | | | Mailcode: L475 | [place], [place] | | | | | [facility] | [address] | | | | | [place], [place] | [phone] | | | | | [address] | | | | | | [phone] | | | +--------+ + + + [...] + + | DIFFERENTIAL | Urgent | 12/05/2002 | | Results for this | | | | 4:50 AM | | procedure are in the | | | | PDT | | results section. | + +--------+ + + + | CBC, WITH | Urgent | 12/05/2002 | | Results for this | | DIFFERENTIAL | | 4:50 AM | | procedure are in the | | | | PDT | | results section. | + +--------+ + + + | BASIC METABOLIC SET | Urgent | 12/05/2002 | | Results for this | | (NA, K, CL, TCO2, | | 4:50 AM | | procedure are in the | | BUN, CR, GLU, CA) | | PDT | | results section. | + +--------+ + + + | POTASSIUM, PLASMA | Urgent | 12/04/2002 | | Results for this | | | | 11:35 AM | | procedure are in the | | | | PDT | | results section. | + +--------+ + + + | DIFFERENTIAL | Urgent | 12/04/2002 | | Results for this | | | | 5:30 AM | | procedure are in the | | | | PDT | | results section. | + +--------+ + + + | CBC, WITH | Urgent | 12/04/2002 | | Results for this | | DIFFERENTIAL | | 5:30 AM | | procedure are in the | | | | PDT | | results section. | + +--------+ + + + | BASIC METABOLIC SET | Urgent | 12/04/2002 | | Results for this | | (NA, K, CL, TCO2, | | 5:30 AM | | procedure are in the | | BUN, CR, GLU, CA) | | PDT | | results section. | + +--------+ + + + | POTASSIUM, PLASMA | Urgent | 12/03/2002 | | Results for this | | | | 6:30 PM | | procedure are in the | | | | PDT | | results section. | + +--------+ + + + | POTASSIUM, PLASMA | Urgent | 12/03/2002 | | Results for this | | | | 11:30 AM | | procedure are in the | | | | PDT | | results section. | + +--------+ + + + documented in this encounter Results DIFFERENTIAL (12/05/2002 4:50 AM PDT) + +---------+ + + + | Component | Value | Ref Range | Performed | Pathologist | | | | | At | Signature | + +---------+ + + + | NEUTROPHIL | 51 | 50 - 70 % | [facility] | | | % | | | DEPARTMENT | | | | | | OF | | | | | | PATHOLOGY | | + +---------+ + + + | LYMPHOCYTE | 36 | 18 - 42 % | [facility] | | | % | | | DEPARTMENT | | | | | | OF | | | | | | PATHOLOGY | | + +---------+ + + + | MONOCYTE % | 8 | 2 - 8 % | [facility] | | | | | | DEPARTMENT | | | | | | OF | | | | | | PATHOLOGY | | + +---------+ + + + | EOS % | 5 (H) | 1 - 3 % | [facility] | | | | | | DEPARTMENT | | | | | | OF | | | | | | PATHOLOGY | | + +---------+ + + + | BASO % | 1 | <3 % | [facility] | | | | | | DEPARTMENT | | | | | | OF | | | | | | PATHOLOGY | | + +---------+ + + + | NEUTROPHIL | 5.7 | 1.8 - 7.7 K/cu | [facility] | | | # | | mm | DEPARTMENT | | | | | | OF | | | | | | PATHOLOGY | | + +---------+ + + + | LYMPHOCYTE | 4.0 | 1.0 - 4.8 K/cu | [facility] | | | # | | mm | DEPARTMENT | | | | | | OF | | | | | | PATHOLOGY | | + +---------+ + + + | MONOCYTE # | 0.9 (H) | 0.1 - 0.6 K/cu | [facility] | | | | | mm | DEPARTMENT | | | | | | OF | | | | | | PATHOLOGY | | + +---------+ + + + | EOS # | 0.6 (H) | <0.6 K/cu mm | [facility] | | | | | | DEPARTMENT | | | | | | OF | | | | | | PATHOLOGY | | + +---------+ + + + | BASO # | 0.1 | <0.3 | [facility] | | | [...] + + + + | [facility] | [address] | [place] [address] | | | PATHOLOGY | [address] | | | + + + + + | [facility] | [address] [place] [address] | [place] [address] | | | PATHOLOGY | [address] | | | + + + + + CBC, WITH DIFFERENTIAL (12/05/2002 4:50 AM PDT) + + + + + + | Component | Value | Ref Range | Performed | Pathologist | | | | | At | Signature | + + + + + + | WHITE CELL | 11.1 (H) | 4.4 - 11.0 K/cu | [facility] | | | COUNT | | mm | DEPARTMENT | | | | | | OF | | | | | | PATHOLOGY | | + + + + + + | RED CELL | 3.96 | 3.65 - 5.10 | [facility] | | | COUNT | | M/cu mm | DEPARTMENT | | | | | | OF | | | | | | PATHOLOGY | | + + + + + + | HEMOGLOBIN | 11.6 | g/dL | [facility] | | | | | | DEPARTMENT | | | | | | OF | | | | | | PATHOLOGY | | + + + + + + | HEMATOCRIT | 34.5 | % | [facility] | | | [...] + + + + | MCH | 29.3 | 29.0 - 32.0 pg | [facility] | | | | | | DEPARTMENT | | | | | | OF | | | | | | PATHOLOGY | | + + + + + + | MCHC | 33.7 | 33.4 - 35.5 | [facility] | | | | | g/dL | DEPARTMENT | | | | | | OF | | | | | | PATHOLOGY | | + + + + + + | RDW | 14.0 | 11.5 - 15.0 % | [facility] | | | | | | DEPARTMENT | | | | | | OF | | | | | | PATHOLOGY | | + + + + + + | PLATELET | 468 | K/cu mm | [facility] | | [...] | + + + + + | [facility] DEPARTMENT OF | [address] | [place] [address] | | | PATHOLOGY | [address] | | | + + + + + | [facility] DEPARTMENT OF | [address] | [place] [address] | | | PATHOLOGY | [address] | | | + + + + + BASIC METABOLIC SET (12/05/2002 4:50 AM PDT) + +---------+ + + + | Component | Value | Ref Range | Performed | Pathologist | | | | | At | Signature | + +---------+ + + + | GLUCOSE, | 92 | 65 - 110 mg/dL | [facility] [...] + + + | TOTAL CO2, | 23 | 23 - 29 mmol/L | [facility] [...] + + + + | [facility] | [address] | [place] [address] | | | PATHOLOGY | [address] | | | + + + + + | [facility] | [address] | [place] [address] | | | PATHOLOGY | [address] | | | + + + + + POTASSIUM, PLASMA (12/04/2002 11:35 AM PDT) + +-------+ + + + | Component | Value | Ref Range | Performed | Pathologist | | | | | At | Signature | + +-------+ + + + | POTASSIUM, | 3.9 | 3.5 - 5.1 | [facility] | [...] | + + + + + | [facility] DEPARTMENT OF | [address] | [place] [address] | | | PATHOLOGY | [address] | | | + + + + + | [facility] DEPARTMENT OF | [address] | [place] [address] | | | PATHOLOGY | [address] | | | + + + + + DIFFERENTIAL (12/04/2002 5:30 AM PDT) + +---------+ + + + | Component | Value | Ref Range | Performed | Pathologist | | | | | At | Signature | + +---------+ + + + | NEUTROPHIL | 51 | 50 - 70 % | [facility] | | | % | | | DEPARTMENT | | | | | | OF | | | | | | PATHOLOGY | | + +---------+ + + + | LYMPHOCYTE | 31 | 18 - 42 % | [facility] | | | % | | | DEPARTMENT | | | | | | OF | | | | | | PATHOLOGY | | + +---------+ + + + | MONOCYTE % | 12 (H) | 2 - 8 % | [facility] | | | | | | DEPARTMENT | | | | | | OF | | | | | | PATHOLOGY | | + +---------+ + + + | EOS % | 6 (H) | 1 - 3 % | [...] +---------+ + + + | NEUTROPHIL | 5.1 | 1.8 - 7.7 K/cu | [facility] | | | # | | mm | DEPARTMENT | | | | | | OF | | | | | | PATHOLOGY | | + +---------+ + + + | LYMPHOCYTE | 3.1 | 1.0 - 4.8 K/cu | [facility] | | | # | | mm | DEPARTMENT | | | | | | OF | | | | | | PATHOLOGY | | + +---------+ + + + | MONOCYTE # | 1.2 (H) | 0.1 - 0.6 K/cu | [facility] | | | | | mm | DEPARTMENT | | | | | | OF | | | | | | PATHOLOGY | | + +---------+ + + + | EOS # | 0.6 (H) | <0.6 K/cu mm | [facility] | [...] | + + + + + | [facility] DEPARTMENT | [address] | [place] [address] | | | PATHOLOGY | [address] | | | + + + + + | [facility] | [address] | [place] [address] | | | PATHOLOGY | [address] | | | + + + + + CBC, WITH DIFFERENTIAL (12/04/2002 5:30 AM PDT) + +-------+ + + + [...] + + + | RED CELL | 3.83 | 3.65 - 5.10 | [facility] | | | COUNT | | M/cu mm | DEPARTMENT | | | | | | OF | | | | | | PATHOLOGY | | + +-------+ + + + | HEMOGLOBIN | 11.3 | g/dL | [facility] | | | | | | DEPARTMENT | | | | | | OF | | | | | | PATHOLOGY | | + +-------+ + + + | HEMATOCRIT | 33.3 | % | [facility] | | | | | | DEPARTMENT | | | | | | OF | | | | | | PATHOLOGY | | + +-------+ + + + | MCV | 86.8 | 80.0 - 96.0 fL | [facility] | | | | | | DEPARTMENT | | | | | | OF | | | | | | PATHOLOGY | | + +-------+ + + + | MCH | 29.6 | 29.0 - 32.0 pg | [facility] | | | | | | DEPARTMENT | | | | | | OF | | | | | | PATHOLOGY | | + +-------+ + + + | MCHC | 34.1 | 33.4 - 35.5 | [facility] | | | | | g/dL | DEPARTMENT | | | | | | OF | | | | | | PATHOLOGY | | + +-------+ + + + | RDW | 13.7 | 11.5 - 15.0 % | [facility] | | | | | | DEPARTMENT | | | | | | OF | | | | | | PATHOLOGY | | + +-------+ + + + | PLATELET | 415 | K/cu mm | [facility] | | | COUNT | | | DEPARTMENT | | | | | | OF | | | | | | PATHOLOGY | | + +-------+ + + + | MPV | 7.6 | 7.4 - 10.4 fL | [facility] [...] | + + + + + | [facility] DEPARTMENT OF | [address] | [place] [address] | | | PATHOLOGY | [address] | | | + + + + + | [facility] DEPARTMENT OF | [address] | [place] [address] | | | PATHOLOGY | [address] | | | + + + + + BASIC METABOLIC SET (12/04/2002 5:30 AM PDT) + +---------+ + + + | Component | Value | Ref Range | Performed | Pathologist | | | | | At | Signature | + +---------+ + + + | GLUCOSE, | 121 (H) | 65 - 110 mg/dL | [...] + + + | TOTAL CO2, | 22 (L) | 23 - 29 mmol/L | [facility] [...] DEPARTMENT OF | [address] | [place] [address] | | | PATHOLOGY | [address] | | | + + + + + | [facility] DEPARTMENT OF | [address] | [place] [address] | | | PATHOLOGY | [address] | | | + + + + + POTASSIUM, PLASMA (12/03/2002 6:30 PM PDT) + +-------+ + + + [...] | + + + + + | [facility] | [address] | [place] [address] | | | PATHOLOGY | [address] | | | + + + + + | [facility] | [address] | [place] [address] | | | PATHOLOGY | [address] | | | + + + + + POTASSIUM, PLASMA (12/03/2002 11:30 AM PDT) + +-------+ + + + [...] DEPARTMENT OF | [address] | [place] [address] | | | PATHOLOGY | [address] | | | + + + + + | [facility] | [address] | [place] [address] | | | PATHOLOGY | [address] | | | + + + + + documented in this encounter Visit Diagnoses Not on filedocumented in this encounter"
--- OUTSIDE RECORDS SUMMARY | ~2019-09-02 | XMS | Encounter Summary ---
Demographics + + + | Address | [address] | | | [place] [address] | + + + | Home Phone [...] + + + | Author | [facility] | | | and [place] | + + + | Organization | [facility] [...] | | | | | [place] [address] | | + + + + + | Robson Min | ECON | Unknown | | + + + + + | Isabella Whitehead | ECON | Unknown | | + + + + + | Seven Neff | ECON | Unknown | | + + + + + Care Team Providers + +------+ + | Care Jewelry Facer Name | Role | Phone | + [...] Closed | | Gastroenterol | Diagnoses | Mejia | [place], | | | | ogy | Abdominal | Bart Bell DO | MD Cecilio | | | | | pain, | [address] | [address] | | | | | generalized | [address] | [place] | | | | | follow up | [place] | [place] [address] | | | | | abd pain, | [address] | Phone: | | | | | nause & | [place], [place] | [phone] | | | | | vomiting/per | [address] | Fax: | | | | | swathi/pcp | Phone: | [phone] | | | | | walker/moda/ | [phone] | | | | | | called for | | | | | | | referral | | | | | | | 10/04/13nns | | | | | | | Procedures | | | | | | | [place] OFFICE | | | | | | [...] + + | 11/01/ | Office | [facility] | Cecilio Amato MD | Nausea & vomiting | | 2014 | Visit | GASTROENTEROLOGY | [address] | (Primary Dx); IBS | | | | [address] [facility] | [place] | (irritable bowel | | | | [address] | [address] | syndrome) | | | | [address] | [phone] | | | | | [phone] | | | +--------+---------+ + + + [...] 50 mg by mouth 4 times daily. wkgbseyrxg-mjhkkvc-nlkeerhl (BUTALBITAL COMPOUND/ASA) per tablet One tablet by [...] Date Wrist pain Diabetes mellitus, type 2 ([facility]) Vitamin D deficiency Hypercholesterolemia Hypothyroidism Panic anxiety syndrome IBS (irritable bowel syndrome) Restless leg syndrome Urinary hesitancy Lumbago Nocturia Pyoderma gangreosum-LE Bipolar 1 disorder ([facility]) Hypertension Lymphedema Nausea and vomiting Reflux esophagitis GI bleeding Empyema lung ([facility]) 2005 right Knee pain CHRONIC TENSION HEADACHE [...] Ramos MD - 0 11/01/2013 12:00 AM [facility] GASTROENTEROLOGY [address] [place] [address] FAX: [phone] OFFICE VISIT OUTPATIENT GI FOLLOWUP CHIEF COMPLAINT: [...] I encouraged her to speak to her turbine subassembler regarding finding an alternative medication and discontinuing [...] discuss stopping azathioprine and hydrocodone, with her turbine subassembler. Cecilio Amato MD / RC JOB #: [id number] signed by Cecilio Amato MD at 11/02/2013 [...] [place] | | | | | | [address] | | | | | | | | +--------+---------+ + + + | 11/05/ | Office | Neurology | Tariq, | | | 2019 | Visit | | [address] | | | | | [address] [place], | | | | | | [place] [address] | | | | | | [phone] | | | | | | | | +--------+---------+ + + + documented as of this encounter Visit Diagnoses + + | Diagnosis | + + | Nausea & vomiting - Primary Nausea with vomiting | + + | IBS (irritable bowel syndrome) Irritable bowel syndrome | + + documented in this encounter"
--- OUTSIDE RECORDS SUMMARY | ~2019-09-02 | XMS | Encounter Summary ---
Demographics + + + | Address | [address] | | | [place] [address] | + + + | Home Phone | | + + + | Preferred Language | Unknown | + + + | Marital Status | Single | + + + | Orthodoxy Affiliation | Unknown | + + + [...] | | | | | [place] [address] | | + + + + + | Robson Min | ECON | Unknown | | + + + + + | Isabella Whitehead | ECON | Unknown | | + + + + + | Seven Neff | ECON | Unknown | | + + + + + Care Team Providers + +------+ + | Care Clutch Specialist Name | Role | Phone | [...] | Sleep | Diagnoses | Harjinder, | [facility] | | | Services | Medicine | Sleep | MD Navdeep | Center [address] | | | Required | | apnea, | [address] | [place] | | | | | unspecified | [place] | [place], | | | | | type | [place], | [place] [address] | | | | | Alveolar | [place] [address] | Phone: | | | | | hypoventilat | Phone: | [phone] | | | | | ion | [phone] | Fax: | | | | | Procedures | Fax: | [phone] | | | | | [place] POLYSOM | [phone] | | | | | | 6/>YRS [...] | +--------+ + + + + | 11/22/ | Hospital | [facility] | Navdeep [place], | Sleep apnea, | | 2018 - | Encounter | [facility] | MD Cely GORE | unspecified type; | | | | [place] [address] [place] | [place] | Alveolar | | 11/23/ | | [place] | [address] | hypoventilation; | | 2018 | | [address] | | COPD, mild (HCC) | | | | [phone] | | | +--------+ + + + [...] +---------+ + + | azaTHIOprine | Take 50 tablets by | | 0 | 11/19/19 | | | (IMURAN) 50 mg | mouth every morning. | | | 18 | 0 | | tablet | Take 50 mg by mouth | | | | | | | in the morning and | | | | | | | 100 mg nightly. | | | | | + [...] the skin | | | 17 | 0 | | injection (pen) | nightly. | [...] nightly as needed. | | | | 0 | | tablet | | | | | | + + + +---------+ + + | traZODone | Take 300 mg by mouth | | 0 | | | | (DESYREL) 100 mg | nightly. | | | | 0 | | tablet | | | | [...] [place] | | | | | | [id number] | | | | | | | | +--------+---------+ + + + | 11/05/ | Office | Neurology | Tariq, | | | 2020 | Visit | | Theo, FINISHING RANGE OPERATOR [address] | | | | [address] [facility], | | | | | | [place] [address] | | | | | | [phone] | | | | | | | | +--------+---------+ + + + documented as of this encounter Procedures + +--------+ + + + | Procedure Name | Priori | Date/Time | Associated Diagnosis | Comments | | | ty | | | | + +--------+ + + + | SLEEP STUDY ROUTINE | Routin | 11/23/2017 | | | | (SPLIT NIGHT | e | 7:13 AM | | | | PROTOCOL) | | PDT | | | + +--------+ + + + documented in this encounter Visit Diagnoses + + | Diagnosis | + + | Sleep apnea, unspecified type | + + | Alveolar hypoventilation Other dyspnea and respiratory abnormality | + + | COPD, mild (HCC) Chronic airway obstruction, not elsewhere classified | + + documented in this encounter"
--- OUTSIDE RECORDS SUMMARY | ~2019-09-02 | XMS | Encounter Summary ---
Demographics + + + | Address | [address] | | | [place] [address] | + + + | Home Phone [...] + + + | Author | [facility] | + + + | Organization | [facility] | + + + | Address | Unknown | + + + | Phone | Unavailable | + + + Support + + + + + | Name | Relationship | Address | Phone | + + + + + | Scot Johnson | ECON | [address] | | | | | [place] [address] | | + + + + + Care Team Providers + +------+ + | Care Compensation Associate Name | Role | Phone | + +------+ + | Bart Ba DO | PCP | | + +------+ + Encounter Details +--------+ + + + + | Date | Type | Department | Care Team | Description | +--------+ + + + + | 03/28/ | Abstract | Neurology at | Unknown . | | | 2018 | | [facility] & | | | | | | Healing [address] | | | | | | [place] Mailcode: [id number] | | | | | | [facility] | | | | | | and Healing, | | | | | | Building | | | | | | [place], [place] | | | | | | [address] | | | | | | [phone] | | | +--------+ + + + [...]
--- OUTSIDE RECORDS SUMMARY | ~2019-09-02 | XMS | Encounter Summary ---
Demographics + + + | Address | [address] | | | [place] [address] | + + + | Home Phone [...] + + + | Author | [facility] | | | and [place] | + + + | Organization | [facility] | | | [...] | | | | | [place] [address] | | + + + + + | Robson Min | ECON | Unknown | | + + + + + | Isabella Whitehead | ECON | Unknown | | + + + + + | Seven Neff | ECON | Unknown | | + + + + + Care Team Providers + +------+ + | Care Primary School Teacher Name | Role | Phone | + +------+ + | Ora Slater | PCP | | + +------+ + Encounter Details +--------+ + + + + | Date | Type | Department | Care Team | Description | +--------+ + + + + | 09/22/ | Hospital | [facility] | Neno Walker | Hypoventilation | | 2019 | Encounter | MED CTR PULMONARY | MD Srinivas [address] | | | | | FUNCTION [address] | [facility] | | | | | [place], | [place] [address] | | | | | [place] [address] | [phone] | | | | | [phone] | | | +--------+ + + + [...] puffs into | 1 | 11 | 05/10/20 | | | HFA) 90 mcg/puff | [...] | | | (LYRICA) 150 MG | every morning. Take | | | | | | capsule | 150 mg by mouth in | | | | | | | the morning and 300 | | | | | | | mg in the evening. | | | | | + + [...] tablet | Daily. | | | | 0 | + + + +---------+ + + [...] | every morning. | | | | 0 | + + + +---------+ + + [...] + + + +---------+ + + | [facility] | Inject 10 Units | | 0 [...] concentrator to | | | 19 | 0 | | MISC | provide O2 at [...] | every morning. | | | | 0 | | [...] 2019 | Visit | | MD Cely DUTTNO | | | | | | [place] | | | | | | [address] | | | | | | | | +--------+---------+ + + + | 11/05/ | Office | Neurology | Tariq, | | | 2019 | Visit | | ANGELA Venegas [address] | | | | | | [address] [place], | | | | | | [place] [address] | | | | | | [phone] | | | | | | | [...] + + + + + | [facility]. | [address] | [place] | [phone] | | [facility] | | [address] | | | - LABORATORY | | | | + + + + + documented in this encounter Visit Diagnoses + + | Diagnosis | + + | Hypoventilation Other dyspnea and respiratory abnormality | + + documented in this encounter"
--- OUTSIDE RECORDS SUMMARY | ~2019-09-02 | XMS | Encounter Summary ---
Demographics + + + | Address | [address] | | | [place] [address] | + + + | Home Phone | | + + + | Preferred Language | Unknown | + + + | Marital Status | Single | + + + | Rastafarian Affiliation | CHR | + + + [...] | | | | | [place] [address] | | + + + + + Care Team Providers + +------+ + | Care Forensics Team Director Name | Role | Phone | + +------+ + PCP | Unavailable | + +------+ + Encounter Details +--------+ + + + + | Date | Type | Department | Care Team | Description | +--------+ + + + + | 11/02/ | Respiratory | | Other, Faculty | | | 2006 | Therapy | | [phone] | | +--------+ + + + + [...] for this | | | e | 12:43 AM | | procedure are in the | | | | PDT | | results section. | + +--------+ + + + documented in this encounter Results MEDICAL GAS/HUMIDITY (11/02/2005 12:43 AM PDT) + + + + + + | Component | Value | Ref Range | Performed | Pathologist | | | | | At | Signature | + + + + + + | [facility] | NASAL CANNULA AT 2 | | | | | GAS/HUMIDIT | | | | | | Y | Lisa Wahl, ROD CUP FILLER | | | | + + + [...] [facility] | [address] | [place], [place] | | | DIAGNOSTICS - | [place] | [address] | | | PULMONARY FUNCTION | | | | + + + + + documented in this encounter Visit Diagnoses Not on filedocumented in this encounter"
--- OUTSIDE RECORDS SUMMARY | ~2019-09-02 | XMS | Encounter Summary ---
Demographics + + + | Address | [address] | | | [place] [address] | + + + | Home Phone | | + + + | Preferred Language | Unknown | + + + | Marital Status | Single | + + + | Synagogue Affiliation | Unknown | + + + | Race | Unknown | + + + | Ethnic Group | Unknown | + + + Author + + + | Author | [facility] | | | and [place] | + + + | Organization | [facility] | | | [...] | | | | | [place] [address] | | + + + + + | Robson Min | ECON | Unknown | | + + + + + | Isabella Whitehead | ECON | Unknown | | + + + + + | Seven Neff | ECON | Unknown | | + + + + + Care Team Providers + +------+ + | Care Demonstrator Electric Gas Appliances Name | Role | Phone | + +------+ + | Bart Ba DO | PCP | | + +------+ + Reason for Visit + + + | Reason | Comments | + + + | Follow-up | | + + + | COPD | wants more education on COPD | + + + Encounter Details +--------+---------+ + + + | Date | Type | Department | Care Team | Description | +--------+---------+ + + + | 08/22/ | Office | [facility] | Navdeep Grande, | COPD (chronic | | 2014 | Visit | PULMONARY [address] | MD [address] | obstructive | | | | [place], | [place], [place] | pulmonary disease) | | | | [place] [address] | [address] | (HCC) (Primary Dx) | | | | [phone] | | | +--------+---------+ + + + [...] + + + | Blood Pressure | 110/70 | 08/22/2013 2:17 PM | | | | | PDT | | + + + + + | Pulse | 69 | 08/22/2013 2:17 PM | | | | | PDT | | + + + + + | Temperature | 36.2 C (97.1 F) | 08/22/2013 2:17 PM | | | | | PDT | | + + + + + | Respiratory Rate | 18 | 08/22/2013 2:17 PM | | | | | PDT | | + + + + + | Oxygen Saturation | 97% | 08/22/2013 2:17 PM | | | | | PDT | | + + + + + | Inhaled Oxygen | - | - | | | Concentration | | | | + + + + + | Weight | 99.1 kg (218 lb 6.4 | 08/22/2013 2:17 PM | | | | oz) | PDT | | + + + + + | Height | 167.6 cm (5' 6") | 08/22/2013 2:17 PM | | | | | PDT | | + + + + + | Body Mass Index | 35.25 | 08/22/2013 2:17 PM | | | | | PDT | | + + + + + documented in this encounter Patient Instructions Patient Instructions Navdeep Grande MD - 08/22/2013 2:32 PM PDTNo changes to medicatio ns at this time. Will measure pulmonary function first.Electronically signed by Navdeep Grande MD at 09/2013 2:33 PM PDT documented in this encounter Progress Notes Navdeep Grande MD - 08/22/2013 2:22 PM PDTFormatting of this note might be different f rom the original. Pulmonary Follow Up 08/22/2013 HPI Kait Min is a 43 y.o. female patient of Bart Ba D.O. here today for follow up of abnormal chest xray and cough. It has been 10 month since our last clinic appointment. At their last visit, we lilo stokes plan to followup in October. The patient was apparently hospitalized at [facility] in [facility] in March 2013 for pneumonia. Therapy consisted of antibiotics and supplemental oxygen. The patient was discharged home on oxygen at 1 L per minute. She is subsequently been told by Dr. Ba wear supplemental oxygen at night while she sleeps. The patient was placed on Ad vair at the [facility]. Kait has questions regarding whether she still needs supplemental oxygen and if COPD is t katelyn present. Since the last visit she feels like their symptoms are stable. They have have not had any other episodes of "bronchitis-like" symptoms. Currently Kait Min is able to walk one block at their own pace on level ground. They are not exercising regularly. They are not enrolled in cardiac/pulmonary rehabilitation. She does cough chronically, and does not produce mucous. They have not had hemoptysis since our last appointment. She has been evaluated for nocturnal oxygen. They are currently on 1 LPM at night. She does not had symptoms of heartburn or reflux. They have not had symptoms of nasal conge stion or post nasal drip. The patient's tobacco use is down to less than 0.5 packs per day. For unclear reasons she is no longer using Ventolin. Past Medical History Past Medical History Diagnosis Date Wrist pain Diabetes mellitus, type 2 ([facility]) Vitamin D deficiency Hypercholesterolemia Hypothyroidism Panic anxiety syndrome IBS (irritable bowel syndrome) Restless leg syndrome Urinary hesitancy Lumbago Nocturia Pyoderma gangreosum-LE Bipolar 1 disorder ([facility]) Hypertension Lymphedema Nausea and vomiting Reflux esophagitis GI bleeding Empyema lung ([facility]) 2005 right Knee pain CHRONIC TENSION HEADACHE [...] 4 times daily., Disp: , Rfl: ; onrbkvpldh-zfbhbej-xkcdwubz (BUTALBITA L COMPOUND/ASA) per tablet, One tablet [...] by mouth Daily., Disp: , Rfl: ; r anitidine (ZANTAC) 150 mg tablet, Take 150 mg by mouth Daily., Disp: , Rfl: ; simvastatin ( ZOCOR) 20 mg tablet, Take 20 mg by mouth Daily., Disp: , Rfl: ; SUMAtriptan (IMITREX) 100 m g tablet, 1/2-1 tablet by mouth daily as needed migraine, Disp: , Rfl: ; traZODone (DESYREL ) 100 mg tablet, Take 100 mg by mouth nightly., Disp: , Rfl: venlafaxine (EFFEXOR) 75 MG tablet, Take 75 mg by mouth 2 times daily., Disp: , Rfl: ; RICO APAMIL HCL PO, Take by mouth 2 times daily., Disp: , Rfl: ; ziprasidone (GEODON) 60 MG cap feilx, Take 80 mg by mouth Daily., Disp: , Rfl: Immunizations: Immunization History Administered Date(s) Administered INFLUENZA, PRESERVATIVE FREE IM 02/03/2012 Pneumococcal (Adult) 04/04/2009 Review of Systems Constitutional: Denies fever, chills, sweats, fatigue or weakness. Sleep: Denies trouble sleeping, excessive snoring, and daytime sleepiness. Eyes: Denies vision change, and eye irritation. ENT: Denies earache, tinnitus, decreased hearing, nosebleeds, sore throat, and hoarseness. Resp: See HPI. CV: Denies neck/chest/jaw pain with exertion, palpitations, lightheadedness, syncope, orth opnea, PND, peripheral edema, and claudication. GI: Denies trouble swallowing, nausea, vomiting, abdominal pain, diarrhea, melena, and he matochezia. Neurologic: Denies frequent headaches, seizures, tremors, numbness or tingling in hands or feet or vertigo. Allergy Denies urticaria or allergic rashes. Objective BP 110/70 | Pulse 69 | Temp 36.2 C (97.1 F) (Temporal) | Resp 18 | Ht 1.676 m (5' 6") | Wt 99.066 kg (218 lb 6.4 oz) | BMI 35.27 kg/m2 | SpO2 97% Appearance: Alert, cooperative, no distress, appears stated age Head: Normocephalic, without obvious abnormality, atraumatic Eyes: PERRL, conjunctiva/corneas clear Nose: Nares normal, septum midline, mucosa normal, no drainage or sinus tenderness Throat: Lips, mucosa, and tongue normal; teeth/dentures normal Neck: Supple, symmetrical, no JVD Lungs: No accessory muscle use, breath sounds are clear to auscultation bilaterally, no w heezes, No crackles or rhonchi. No dullness to percussion. Chest Wall: No tenderness or deformity Heart: Regular rate and rhythm, S1, S2 normal, no murmur, rub or gallop Extremities: Extremities normal, atraumatic, no cyanosis, clubbing. none edema. Scarring in the patient's lower extremities is noted Skin: Warm and dry Lymph nodes: Cervical and supraclavicular nodes normal Neurologic: Gait normal Assessment 1. Query COPD-to my knowledge Kait has never had pulmonary function tests to note the pr esence of obstructive lung disease changes. Such testing seems reasonable. The patient is currently using low-dose Advair. I suggested to Kait that we reinitiate a s needed Ventolin. 2. Hypoxemia-currently the patient's O2 saturation is adequate at rest. It remains to be seen whether supplemental oxygen is recommended with exertion or while sleeping. 3. Abnormal chest CT-not to be post decortication changes. Followup imaging from March 2012 and October 2012 were unchanged. The patient most likely should have followup imaging in March 2014. Plan 1. No change in this patient's medication regimen at this time. 2. Spirometry, lung volumes and diffusion capacity. 3. Exertional oximetry. 4. Nocturnal oximetry on room air to determine her supplemental oxygen is still needed at night while sleeping. 5. Pulmonary clinic followup appointment to review the status of the above noted studies i n approximately 2 weeks. CC: Bart Ba documented in this encounter Plan of Treatment +--------+---------+ + + + | Date | Type | Specialty | Care Team | Description | +--------+---------+ + + + | 09/27/ | Office | Pulmonology | Navdeep Grande, | | | 2019 | Visit | | MD Cely GORE | | | | | | [place] | | | | | | [address] | | | | | | | | +--------+---------+ + + + | 11/05/ | Office | Neurology | Tariq, | | 2019 | Visit | | ANGELA Venegas [address] | | | | | | [address] [facility], | | | | | | [place] [address] | | | | | | [phone] | | | | | | | | +--------+---------+ + + + + + +--------+ + + | Name | Type | Priori | Associated Diagnoses | Order Schedule | | | | ty | | | + + +--------+ + + | Overnight oximetry, | Respiratory | Routin | COPD (chronic | Expected: | | room air | Care | e | obstructive | 08/22/2013, Expires: | | | | | pulmonary disease) | 08/22/2014 | | | | | ([facility]) | | + + +--------+ + + documented as of this encounter Results PFT PULMONARY FUNCTION TESTING ORDERS Full PFT (Clarion w/BD, lung volumes, diffusion)?: Yes; Rest and walk Oximetry/home O2 eval?: Yes (08/25/2013 3:51 PM PDT) + + + | Narrative | Performed At | + + + | Navdeep Grande MD 08/25/2013 15:51 PULMONARY FUNCTION | | | TESTING SPIROMETRY: The FVC was 3.38L or 90 % of predicted. The | | | FEV1 was 2.75 L or 89 % of predicted. FEV1/FVC ratio was 82 %. | | | LUNG VOLUMES: The total lung capacity was 5.07 L or 94 % of | | | predicted. The residual volume was 1.64 L or 94 % of predicted. | | | RV/TLC ratio was 32 % of predicted. DIFFUSION CAPACITY: The | | | diffusion capacity was 20.9mL/mmHg per minute or 73 % of | | | predicted. IMPRESSION: Spirometry is consistent with normal | | | physiology. Lung volume testing is consistent with normal | | | physiology. Diffusion capacity is mildly reduced and was not | | | corrected for measured hemoglobin. No prior pulmonary function | | | tests available for comparison Test performed: 08/25/13 | | | Electronically signed by: Navdeep Grande MD 08/25/2013 15:49 WS | | | [facility] | | + + + + + | Procedure Note | + + | Navdeep Grande MD - 08/25/2013 3:49 PM PDT PULMONARY FUNCTION TESTING | | SPIROMETRY: The FVC was 3.38L or 90 % of predicted. The FEV1 was 2.75 L or 89 % of | | predicted. FEV1/FVC ratio was 82 %. LUNG VOLUMES: The total lung capacity was 5.07 L or | | 94 % of predicted. The residual volume was 1.64 L or 94 % of predicted. RV/TLC ratio | | was 32 % of predicted. DIFFUSION CAPACITY: The diffusion capacity was 20.9mL/mmHg per | | minute or 73 % of predicted. IMPRESSION: Spirometry is consistent with normal | | physiology. Lung volume testing is consistent with normal physiology. Diffusion capacity | | is mildly reduced and was not corrected for measured hemoglobin.No prior pulmonary | | function tests available for comparisonTest performed: 08/25/13Electronically signed by: | | Navdeep Grande MD 08/25/2013 15:49[facility] | |IMPRESSION: Spirometry is consistent with normal physiology. Lung volume testing is consist ent with normal physiology. Diffusion capacity is mildly reduced and was not corrected for m easured hemoglobin. | | | |No prior pulmonary function tests available for comparison | | | |Test performed: 08/25/13 | |Electronically signed by: Navdeep Grande MD 08/25/2013 15:49 | |[facility] | + + documented in this encounter Visit Diagnoses + + | Diagnosis | + + | COPD (chronic obstructive pulmonary disease) (HCC) - Primary Chronic airway | | obstruction, not elsewhere classified | + + documented in this encounter
--- OUTSIDE RECORDS SUMMARY | ~2019-09-02 | XMS | Encounter Summary ---
Demographics + + + | Address | [address] | | | [place] [address] | + + + | Home Phone [...] + + + | Author | [facility] | | | and [place] | + + + | Organization | [facility] | | | and [...] | | | | | [place] [address] | | + + + + + | Robson Escobar | ECON | Unknown | | + + + + + | Isabella Whitehead | ECON | Unknown | | + + + + + | Seven Neff | ECON | Unknown | | + + + + + Care Team Providers + +------+ + | Care Branch Office Manager Name | Role | Phone | [...] + + | 04/04/ | Office | [facility] [place] | Navdeep Grande, | Abnormal chest CT | | 2011 | Visit | PULMONARY [address] | MD [address] | (Primary Dx) | | | | [place], | [place] | | | | | [place] [address] | [address] | | | | | [phone] | | | +--------+---------+ + + + [...] FLEXPEN SC), SOLN, Disp: , Rfl: ; urjlywfzaz-vywkybm-vfoibrxg (BUTALBITAL COMPOUND/ A) per tablet, One tablet [...] to occur. 4. Smoking cessation encouraged. CC: Bart aB documented in this encounter Plan of Treatment +--------+---------+ + + + | Date | Type | Specialty | Care Team | Description | +--------+---------+ + + + | 09/27/ | Office | Pulmonology | Navdeep Grande, | | | 2019 | Visit | | MD Cely DUTTON | | | | | | [place] | | | | | | [address] | | | | | | | | +--------+---------+ + + + | 11/05/ | Office | Neurology | Tariq, | | | 2019 | Visit | | ANGELA Venegas [address] | | | | | | [address] [facility], | | | | | | [place] [address] | | | | | | [phone] | | | | | | | | +--------+---------+ + + + documented as of this encounter Results XR Chest PA and Lateral (10/18/2012 11:44 AM PDT) + + | Specimen | + + | | + + + + + | Narrative | Performed At | + + + | [facility] | [place] | | Department [address] | [facility] | | [ rep [address]] [ rep [facility] | | st zip] Signed | - IMAGING | | | | | Patient Name: CARLINE ESCOBAR Physician: | | | RODRI : 1970 Age: 42 Sex: F Unit #: [id number] | | | Exam Date: 10/18/12 Location: [facility] | | | Report #: [id number] Page: | | | %(RAD)RES..mtdd.print.filter("pg") of %(RAD) | | | RES..mtdd.print.filter("tpg") | | | | | | Accession Number: [id number] | | | [facility] [...] Transcribed Date/Time: 10/18/2012 12:20 | | | Precision Mechanical Instrument Maker: <<Signature on | | | File>> | | | Ace Avery MD10/18/12 1439 <Electronically signed by | | | Ace Avery MD> Ace Avery MD 10/18/12 | | | 1144 Precision Mechanical Instrument Maker: Host Committee [id number]/02/13 1220 | | | Navdeep Grande MD | | + + + + + + + + | Performing | Address | City/State/Zipcode | Phone Number | | Organization | | | | + + + + + | [facility] | [address] | [place] | [phone] | | [facility] | | [address] | | | - IMAGING | | | | + + + + + documented in this encounter Visit Diagnoses + + | Diagnosis | + + | Abnormal chest CT - Primary Nonspecific (abnormal) findings on radiological and other | | examination of other intrathoracic organs | + + documented in this encounter
--- OUTSIDE RECORDS SUMMARY | ~2019-09-02 | XMS | Encounter Summary ---
Demographics + + + | Address | [address] | | | [place] [address] | + + + | Home Phone [...] | | | | | [place] [address] | | + + + + + | Robson Min | ECON | Unknown | | + + + + + | Isaeblla Whitehead | ECON | Unknown | | + + + + + | Seven Neff | ECON | Unknown | | + + + + + Care Team Providers + +------+ + | Care Machine Shop Helper Name | Role | Phone | + +------+ + | Ora Slater | PCP | | + +------+ + Encounter Details +--------+ + + + + | Date | Type | Department | Care Team | Description | +--------+ + + + + | 08/26/ | Orders Only | [facility] [place] | Navdeep Grande, | | | 2018 | | PULMONARY [address] | MD [address] | | | | | [place], | [place] | | | | | [place] [address] | [address] | | | | | [phone] | | | +--------+ + + + [...] [place] | | | | | | [address] | | | | | | | | +--------+---------+ + + + | 11/05/ | Office | Neurology | Tariq, | | | 2019 | Visit | | ANGELA Venegas [address] | | | | | [address] [place], | | | | | | [place] [address] | | | | | | [phone] | | | | | | | | +--------+---------+ + + + documented as of this encounter Visit Diagnoses Not on filedocumented in this encounter"
--- OUTSIDE RECORDS SUMMARY | ~2019-09-02 | XMS | Encounter Summary ---
Demographics + + + | Address | [address] | | | [place] [address] | + + + | Home Phone | | + + + | Preferred Language | Unknown | + + + | Marital Status | Single | + + + | Judaism Affiliation | CHR | + + + [...] | | | | | [place] [address] | | + + + + + Care Team Providers + +------+ + | Care Travel Information Center Supervisor Name | Role | Phone | + +------+ + PCP | Unavailable | + +------+ + Encounter Details +--------+ + + + + | Date | Type | Department | Care Team | Description | +--------+ + + + + | 10/22/ | Respiratory | | Other, Faculty | | | 2006 | Therapy | | [phone] | | +--------+ + + + + [...] for this | | | e | 3:36 AM | | procedure are in the | | | | PDT | | results section. | + +--------+ + + + documented in this encounter Results MEDICAL GAS/HUMIDITY (10/22/2005 3:36 AM PDT) + + + + + + | Component | Value | Ref Range | Performed | Pathologist | | | | | At | Signature | + + + + + + | [facility] | NASAL CANNULA AT 2 | | | | | GAS/HUMIDIT | Vinny Hackett, | | | | | Y | HYDRAULIC MODELING ENGINEER | | | | + + + [...] [facility] | [address] | [place], [place] | | | DIAGNOSTICS - | [place] | [address] | | | PULMONARY FUNCTION | | | | + + + + + documented in this encounter Visit Diagnoses Not on filedocumented in this encounter"
--- OUTSIDE RECORDS SUMMARY | ~2019-09-02 | XMS | Encounter Summary ---
Demographics + + + | Address | [address] | | | [place] [address] | + + + | Home Phone | | + + + | Preferred Language | Unknown | + + + | Marital Status | Single | + + + | Druze Affiliation | Unknown | + + + [...] | | | | | [place] [address] | | + + + + + | Robson Min | ECON | Unknown | | + + + + + | Isabella Whitehead | ECON | Unknown | | + + + + + | Seven Neff | ECON | Unknown | | + + + + + Care Team Providers + +------+ + | Care Central Supply Aide Name | Role | Phone | + [...] Medicine | Nocturnal | Neno Benito | [place] [address] | | | Required | | hypoxia | MD [address]rin[address] | [place] | | | | | Chronic | [place] | [place], | | | | | obstructive | [facility] | [place] [address] | | | | | pulmonary | [place], [place] | Phone: | | | | | disease, | [address] | [phone] | | | | | unspecified | Phone: | Fax: | | | | | COPD type | [phone] | [phone] | | | | | (HCC) | Fax: | | | | | | Procedures | [phone] | | | | | | [place] POLYSOM | | | | | | [...] + + | 10/26/ | Hospital | [facility] | Neno Walker | Nocturnal hypoxia; | | 2019 - | Encounter | [facility] | MD [address]rin[address] | Chronic obstructive | | | | [place] [address] | [address] [place] | pulmonary disease, | | 10/27/ | | [place] | [place] [address] | unspecified COPD | | 2019 | | [address] | [phone] | type (HCC) | | | | [phone] | | | +--------+ + + + [...] [place] | | | | | | 6[address] | | | | | | | | +--------+---------+ + + + | 11/05/ | Office | Neurology | Tariq, | | | 2019 | Visit | | [address] | | | | | | [facility], | | | | | | [place] [address] | | | | | | [phone] | | | | | | | [...] [facility] | | | [place] [address] | | | Polysomnogram Report on Kait Min performed on October 26, 2018. | | | Clinical Information: Kait Min is a 48 y.o. female who | | | underwent polysomnographically guided oxygen titration on October 26, | | | 2019 because of severe nocturnal oxygen desaturation in [...] 5 L/min is advised while sleeping. Neno Durhma | | | Jr. Walker MD, [facility] CENTERSMMedical DirectorCanisteo Sharmila Morris Sleep | | | Disorders [facility], | | | WAClinical Probation Worker of MedicineM[facility] | | | [place], [place] | | |In the course of [...] | | | |Neno Walker Jr., MD, [facility] | | |Abap Developer | | |[facility] | | |[facility] | | |[place] | | |Clinical property management coordinator | | |[facility] | | |[place] | | + + + + + | Procedure Note | + + | Neno Walker Jr., MD - 10/28/2018 10:42 AM PDT [facility] | | Disorders [place], [place] [address]Rtoayegvtaewn Report on | | Kait Min performed [...] sleeping.Neno Walker Jr., MD, | | FAASMMedical DirectorRiver Valley Medical Center Sleep Disorders [facility] | | [facility] MTClinical Probation Worker of MedicineM[facility] Point [facility] | | [place], [place] | |Abap Developer | |[facility] | |[facility] | |[place] | |Clinical property management coordinator | |[facility] | |[place], [place] | + + documented in this encounter Visit Diagnoses + + | Diagnosis | + + | Nocturnal hypoxia Hypoxemia | + + | Chronic obstructive pulmonary disease, unspecified COPD type (HCC) | + + documented in this encounter"
--- OUTSIDE RECORDS SUMMARY | ~2019-09-02 | XMS | Encounter Summary ---
Demographics + + + | Address | [address] | | | [place] [address] | + + + | Home Phone | | + + + | Preferred Language | Unknown | + + + | Marital Status | Single | + + + | Orthodox Affiliation | CHR | + + + | Race | White | + + + | Ethnic Group | Not or | + + + Author + + + | Author | [facility] | + + + | Organization | [facility] | + + + | Address | Unknown | + + + | Phone | Unavailable | + + + Support + + + + + | Name | Relationship | Address | Phone | + + + + + | Scot Johnson | ECON | [address] | | | | | [place] [address] | | + + + + + Care Team Providers + +------+ + | Care Reducing Salon Attendant Name | Role | Phone | + +------+ + PCP | Unavailable | + +------+ + Encounter Details +--------+ + + + + | Date | Type | Department | Care Team | Description | +--------+ + + + + | 04/04/ | Results | Rheumatology Lupus | Deyvi Lainez, | | | 2000 | Only | [address] | | | | | Loop Mailcode: OPC5 | | | | | | Outpatient Clinic | | | | | | [facility], | | | | | | [place] [address] | | | | | | [phone] | | | +--------+ + + + [...] + +--------+ + + + | HAND, 2 VIEWS | Routin | 04/04/2001 | | Results for this | | | e | 9:59 AM | | procedure are in the | | | | PST | | results section. | + +--------+ + + + | C-REACTIVE PROTEIN | Routin | 04/04/2001 | | Results for this | | | e | 9:18 AM | | procedure are in the | | | | PST | | results section. | + +--------+ + + + | SEDIMENTATION RATE | Routin | 04/04/2001 | | Results for this | | | e | 9:18 AM | | procedure are in the | | | | PST | | results section. | + +--------+ + + + documented in this encounter Results HAND, 2 VIEWS (04/04/2001 9:59 AM PST) + + + + + + | Component | Value | Ref Range | Performed | Pathologist | | | | | At | Signature | + + + + + + | HAND, 2 | Radiologist 1: DIPTI, | | | | | VIEWS | Erica GO | | | | | | MBerkleyBILATERAL HANDS PA: | | | | | | 04/03/2001 Dictated | | | | | | 04/04/2001 COMPARISON: | | | | | | None. FINDINGS: | | | | | | Carpal bones and | | | | | | intercarpal joint spaces | | | | | | appear normal.There is | | | | | | no ulnar styloid | | | | | | erosion. There is some | | | | | | MCP narrowing | | | | | | mostprominent at both | | | | | | index fingers with some | | | | | | deep soft tissue | | | | | | swellingwhich is more | | | | | | prominent at the index | | | | | | MCP. The other MCPs | | | | | | appearnormal and | | | | | | maintained. There is | | | | | | no periarticular | | | | | | osteoporosis | | | | | | ulnardeviation or | | | | | | erosion changes. The | | | | | | IP joints appear normal. | | | | | | IMPRESSION: Mild | | | | | | nonspecific arthritic | | | | | | changes of the index | | | | | | MCPs bilaterally. Thisis | | | | | | characterized by | | | | | | joint narrowing and some | | | | | | deep vandana-cartilage | | | | | | softtissue swelling | | | | | | without erosive changes | | | | | | or reactive osteophytes. | | | | | | END [...] | | | + +---------+ + + C-REACTIVE PROTEIN (04/04/2001 9:18 AM PST) + +---------+ + + + | Component | Value | Ref Range | Performed | Pathologist | | | | | At | Signature | + +---------+ + + + | C-REACTIVE | 3.4 (H) | <0.9 mg/dl | | | | PROTEIN | | | | | + +---------+ + + + + + | Specimen | + + | | + + + + + + + | Performing | Address | City/State/Zipcode | Phone Number | | Organization | | | | + + + + + | [facility] | [address] | [place] [address] | | | LABORATORY | | | | + + + + + SEDIMENTATION RATE (04/04/2001 9:18 AM PST) + +-------+ + + + | Component | Value | Ref Range | Performed | Pathologist | | | | | At | Signature | + +-------+ + + + | SEDIMENTATI | 17 | mm/hr | [facility] | | | ON RATE | | | DEPARTMENT | | | | | | OF | | | | | | PATHOLOGY | | + +-------+ + + + + + | Specimen | + + | | + + + + + + + | Performing | Address | City/State/Zipcode | Phone Number | | Organization | | | | + + + + + | [facility] DEPARTMENT OF | [address] | [place] [address] | | | PATHOLOGY | [address] | | | + + + + + | [place] DEPARTMENT OF | [address] | [place] [address] | | | PATHOLOGY | [address] | | | + + + + + documented in this encounter Visit Diagnoses Not on filedocumented in this encounter"
--- OUTSIDE RECORDS SUMMARY | ~2019-09-02 | XMS | Encounter Summary ---
Demographics + + + | Address | [address] | | | [place] [address] | + + + | Home Phone | | + + + | Preferred Language | Unknown | + + + | Marital Status | Single | + + + | Episcopalian Affiliation | Unknown | + + + | Race | Unknown | + + + | Ethnic Group | Unknown | + + + Author + + + | Author | [facility] | | | and [place] | + + + | Organization | [facility] | [...] | | | | | [place] [address] | | + + + + + | Robson Min | ECON | Unknown | | + + + + + | Isabella Whitehead | ECON | Unknown | | + + + + + | Seven Neff | ECON | Unknown | | + + + + + Care Team Providers + +------+ + | Care Textile Machine Maintenance Mechanic Name | Role | Phone | [...] | | | | | [place] | [address] | [address] | | | | | is without | [address] | [place], | | | | | acute | [place] | [place] [address] | | | | | exacerbation | [address] | Phone: | | | | | ([facility]LY [facility]) | [place] | [phone] | | | | | Procedures | [address] | Fax: | | | | | [place] OFFICE | Phone: | [phone] | | | | | OUTPATIENT | [phone] | | | | | | NEW 45 | | | | | | | MINUTES | | | +--------+--------+ + + + [...] | (Primary Dx); | | | | [address], | [place], [place] | Chronic bronchitis | | | | [place] [address] | [address] | ([facility]) | | | | [phone] | | | +--------+---------+ + + + [...] 4 times daily., Disp: , Rfl: ; hfwgwbyemp-jjbsnfy-dhrspcjp (BUTALBITA L COMPOUND/ASA) per tablet, One tablet [...] [place] | | | | | | [address] | | | | | | | | +--------+---------+ + + + | 11/05/ | Office | Neurology | Tariq, | | | 2019 | Visit | | Theo DRIVER EDUCATION INSTRUCTOR [address] | | | | | | [address] [facility], | | | | | | [place] [address] | | | | | | [phone] | | | | | | | [...]
--- OUTSIDE RECORDS SUMMARY | ~2019-09-02 | XMS | Encounter Summary ---
Demographics + + + | Address | [address] | | | [place] [address] | + + + | Home Phone | | + + + | Preferred Language | Unknown | + + + | Marital Status | Single | + + + | Shinto Affiliation | Unknown | + + + | Race | Unknown | + + + | Ethnic Group | Unknown | + + + Author + + + | Author | [facility] | | | and [place] | + + + | Organization | [facility] | | | [...] | | | | | [place] [address] | | + + + + + | Robson Min | ECON | Unknown | | + + + + + | Isabella Whitehead | ECON | Unknown | | + + + + + | Seven Neff | ECON | Unknown | | + + + + + Care Team Providers + +------+ + | Care Press Offbearer Name | Role | Phone | + [...] | | | | | | | [address] | | | | | | | Phone: | | | | | | | [phone] | | | | | | | Fax: | | | | | | | [phone] | | +--------+--------+ + + + + [...] | | Required | | Disorientati | [address] | [address] | | | | | on, | [address] | [place] | | | | | unspecified | [address] [place] | [place] | | | | | Procedures | [address] | [address] Phone: | | | | | Specialty | [place] | [phone] | | | | | Services | [address] | Fax: | | | | | Required | Phone: | [phone] | | | | | | [phone] | | +--------+ + + + + [...] without coma, | | | | [place] [address] | | without long-term | | | | [phone] | | current use of | | [...] mellitus | | | | | | ([facility]); Dizziness | +--------+---------+ + + + Social [...] be different from the original. Patient Instructions [facility] Neurology Clinic Dr. Jimbo Samayoa, Neurologist Date:02/23/2018 [...] le, and scrabble, other puzzle games like Traffio, Kiio. Play computer/mobile applications such as Eversight and Mark[employer]x GAMES Avoid sleep deprivation, alcohol, stimulants, or any type of head trauma Any Questions please call MARTHA Matthew or Dr. Samayoa at [facility] Neurology Clinic Altered Level of Consciousness Level [...] return New symptoms appear Date Last Reviewed: 12/09/201419990965-4393 [employer]. [address] [place] [address]. All righ ts reserved. This information is [...] joint. Hot and cold packs may help. Qylq-uvi-qpqrthx and prescription medicines can be ve ry helpful for arthritis. Talk with your healthcare provider about the best treatments for y our condition. Date Last Reviewed: 08/17/201619992396-6186 [employer]. [address] [place] [address]. All righ ts reserved. This information is [...] you take. This includes prescription an d gnlc-hzf-edyobqj medicines, vitamins, and herbs. Ask if any [...] speaking, walking, or seeing Date Last Reviewed: 06/17/201719999772-5691 [employer]. [address] [place] [address]. All righ ts reserved. This information is [...] and other methods. Date Last Reviewed: 04/19/2017 3520-0806 [employer]. [address] [place] [address], [place] [address]. All [facility] ts reserved. This information is not intended [...] acupuncture, massage, and others. Date Last Reviewed: 03/19/201719991840-4541 [employer]. [address] [place] [address], [place] [address]. All righ ts reserved. This information is [...] [place] | | | | | | [id number] | | | | | | | | +--------+---------+ + + + | 11/05/ | Office | Neurology | Tariq, | | 2019 | Visit | | [address] | | | | | | [address] [place], | | | | | | [place] [address] | | | | | | [phone] | | | | | | | [...] | Ernestine Jimenez MD 03/15/2018 12:45 Name:Kait Anderson | | Pako :1970 DATE OF [...]
--- OUTSIDE RECORDS SUMMARY | ~2019-09-02 | XMS | Encounter Summary ---
Demographics + + + | Address | [address] | | | [place] [address] | + + + | Home Phone [...] | | | | | [place] [address] | | + + + + + Care Team Providers + +------+ + | Care Progressive Care Unit Registered Nurse Name | Role | Phone | + +------+ + PCP | Unavailable | + +------+ + Encounter Details +--------+ + + + + | Date | Type | Department | Care Team | Description | +--------+ + + + + | 11/03/ | Respiratory | | Other, Faculty | | | 2006 | Therapy | | [phone] | | +--------+ + + + + [...] + | MEDICAL GAS/HUMIDITY | Routin | 11/03/2005 | | Results for this | | | e | 6:17 AM | | procedure are in the | | | | PDT | | results section. | + +--------+ + + + documented in this encounter Results MEDICAL GAS/HUMIDITY (11/03/2005 6:17 AM PDT) + + + + + + | Component | Value | Ref Range | Performed | Pathologist | | | | | At | Signature | + + + + + + | [facility] | NASAL CANNULA AT 1 | | | | | GAS/HUMIDIT | | | | | | Y | Edwina Edwards, [facility] | | | | + + + [...] [facility] | [address] | [place], [place] | | | DIAGNOSTICS - | [place] | [address] | | | PULMONARY FUNCTION | | | | + + + + + documented in this encounter Visit Diagnoses Not on filedocumented in this encounter"
--- OUTSIDE RECORDS SUMMARY | ~2019-09-02 | XMS | Encounter Summary ---
Demographics + + + | Address | [address] | | | [place] [address] | + + + | Home Phone | | + + + | Preferred Language | Unknown | + + + | Marital Status | Single | + + + | Mormonism Affiliation | Unknown | + + + | Race | Unknown | + + + | Ethnic Group | Unknown | + + + Author + + + | Author | [facility] | | | and [place] | + + + | Organization | [facility] | | | [...] | | | | | [place] [address] | | + + + + + | Robson Min | ECON | Unknown | | + + + + + | Isabella Whitehead | ECON | Unknown | | + + + + + | Seven Neff | ECON | Unknown | | + + + + + Care Team Providers + +------+ + | Care Float Builder Name | Role | Phone | + +------+ + | Juanito Avery | PCP | | + +------+ + Reason for Visit + + + | Reason | Comments | + + + | Procedure | Botox head | + + + Encounter Details +--------+ + + + + | Date | Type | Department | Care Team | Description | +--------+ + + + + | 04/07/ | Procedure | [facility] | Jimbo Samayoa MD | Intractable migraine | | 2019 | visit | [facility]OSPITAL [facility] | [address] | with aura without | | | | CLINIC [address] | [place] | status migrainosus | | | | DR [place], | [address] | (Primary Dx) | | | | [place] [address] | | | | | | [phone] | | | +--------+ + + + [...] + | Blood Pressure | 110/70 | 04/07/2019 3:53 PM | | | | | PST | | + + + + + | Pulse | 92 | 04/07/2019 3:53 PM | | | | | PST | | + + + + + | Temperature | - | - | | + + + + + | Respiratory Rate | 18 | 04/07/2019 3:53 PM | | | | | PST | | + + + + + | Oxygen Saturation | 96% | 04/07/2019 3:53 PM | | | | | PST | | + + + + + | Inhaled Oxygen | - | - | | | Concentration | | | | + + + + + | Weight | 104.3 kg (230 lb) | 04/07/2019 3:53 PM | | | | | PST | | + + + + + | Height | 165.1 cm (5' 5") | 04/07/2019 3:53 PM | | | | | PST | | + + + + + | Body Mass Index | 38.27 | 04/07/2019 3:53 PM | | | [...] [place] | | | | | | [place] | | | | | | [address] | | | | | | | | +--------+---------+ + + + | 11/05/ | Office | Neurology | Tariq, | | | 2019 | Visit | | [address] | | | | | | [address] [facility], | | | | | | [place] [address] | | | | | | [phone] | | | | | | | [...] + | onabotulinumtoxinA (BOTOX) | Given | 04/07/20 | 200 | | Other | | injection 200 Units 200 Units, | | 19 4:13 | Units | | (Comment | | Intramuscular, ONCE, 04/07/19 | | PM PST | | | ) | | at 1630, For 1 dose | | | | | | + +--------+ +-------+------+ + +---+---+ | | | +---+---+ documented in this encounter
--- OUTSIDE RECORDS SUMMARY | ~2019-09-02 | XMS | Encounter Summary ---
Demographics + + + | Address | [address] | | | [place] [address] | + + + | Home Phone | | + + + | Preferred Language | Unknown | + + + | Marital Status | Single | + + + | Advent Affiliation | Unknown | + + + | Race | Unknown | + + + | Ethnic Group | Unknown | + + + Author + + + | Author | [facility] | | | and [place] | + + + | Organization | [facility] | | [...] | | | | | [place] [address] | | + + + + + | Robson Min | ECON | Unknown | | + + + + + | Isabella Whitehead | ECON | Unknown | | + + + + + | Seven Neff | ECON | Unknown | | + + + + + Care Team Providers + +------+ + | Care Licensed Practical Nurse Instructor Name | Role | Phone | [...] | Encounter | HOSPITAL MED SURG | [address] | failure with hypoxia | | | | [address] | [address] | and hypercapnia | | 08/19/ | | [place], [place] | [place] [address] | ([facility]) (Primary Dx); | | 2018 | | [address] | [phone] | Pneumonia of both | | | | [phone] | | lungs due to | | | | | Aidan Dumont, | infectious organism, | | | | | MD [address] | unspecified part of | | | | | [place] [address] | lung; Acute | | | | | [phone] | metabolic | | | | | | encephalopathy; | | | | | Dashawn Nettles, | Acute renal failure | | | | | MD [address] | with other specified | | | | | [place] [address] | pathological lesion | | | | | [phone] | in kidney (HCC) | | | [...] contributor to this. I counseled the p sulma on smoking cessation. She tells me she [...] tube placement COMPARISON STUDY: August 17, 2017 VALDEMAR DINGS: The lungs are again noted to [...] None Disposition: Home Follow-Up Plans: TIMOTHY Singleton [address] [place] [address] In 1 week Template: I certify that [...] status, to be seen 3 times per webrooke k for 4 weeks. PT for therapeutic exercises to increase strength and endurance, to be seen 3 times per we ek for 4 weeks. OT for strength training and assistance with ADL s, to be seen 3 times per week for 4 wee ks. LAB[employer]ER [employer] for to be seen ___ times per week for ___ weeks. REST ROOM ATTENDANT for to be seen ___ times per week for ___ weeks. INTERPERSONAL COMMUNICATIONS PROFESSOR for to b e seen ___ times [...] 08/19/2018 Co-signer: Dashawn Nettles MD NPI # [id number] Date: 08/19/2018 (Only need MD jansen if a PA/DYNAMITER referring) Examples: ? Clinical finding to support the need for services: Requires snf/licensed physical therapist assistant apy for ? Evidence of Homebound status: [...] have a valid medical license in the state of [place] (this wi ll be the physician who will sign Home Health POC) Electronically signed by: Dashawn Nettles 08/19/2018 8:50 CC [facility] Time spent discharging this patient: 20 minutes spent caring for this patient. documented in this encounter Discharge Instructions AttachmentsThe following attachments cannot be sent through Care Everywhere.Adult, Pneumoni a (Pakistani)Smoking,Health Effects of (Pakistani)Smoking Cessation (Pakistani)documented in thi s encounter Medications at Time [...] PDTFormatting of this note might be katelyn win from the original. PHARMACY SERVICES: DISCHARGE MEDICATION [...] 80 mg by mouth nightly. aka: TESSIE Electronically signed by: Radames Saucedo, PharmThong 08/19/2018 11:09 Dashawn Guevara MD - 08/18/2018 [...] Flow (L/min) Av.1 Min: 1.5 Max: 50 04/30 1901 - 05/02 0700 In: 5347.5 [P.O.:2166; I.V.:3012.9] Out: 6200 [...] interval not displayed. Labs/Studies: Recent Labs Lab 08/18/18 0508/17/18 0510 08/16/18 0517 08/15/18 0839 WBC 4.5 3.2* 2.5* 3.7* HGB 10.7* 9.9* 9.5* 9.9* HCT 32.9* 30.8* 29.9* 31.9* PLT 218 228 225 232 Recent Labs Lab 08/18/18 0508/17/18 0510 08/16/18 0517 08/15/18 0839 NA 134 140 140 138 [...] Min: 90 % Max: 100 % 08/15 1900 - 08/17 0700 In: 5365.3 [I.V.:5031.2] Out: [...] RLL remain co arse and diminished Maryana Guillen, PharmD - 08/16/2018 12:13 PM PDTMedication History Completed Medication history was completed using: -medication list faxed from [facility] Major discrepancies noted: patient was not coherent enough to obtain an accurate medication list from her at the time of admission and subsequently has ended up intubated. Obtained a medication fill history of [employer] and updated the medication from the most recent fill his tory. Patient is currently up to date on her pneumococcal vaccine. PPSV23: 04/04/09, 03/19/13, 01/10/15 PCV13: 03/19/13, 04/24/14 Please see [facility] med list for updated medication list. Electronically Signed by: Maryana Denise, PharmD 08/16/2018 12:13 Dashawn Guevara MD - [...] 08/14 1901 - 08/16 0700 In: 3186 [I.V.:1986] Out: 3260 [Urine:2730] Physical Examination: General: Intubated, [...] have occurred. Juan Oro RRT - 08/16/2018 3:22 AM PDTIncreased Sx [...] | 09/27/ | Office | Pulmonology | GrandeNavdeep, | | | 2019 | Visit | | [address] | | | | | | [place] | | | | | | [address] | | | | | | | | +--------+---------+ + + + | 11/05/ | Office | Neurology | Tariq, | | | 2019 | Visit | | [address] | | | | | | [address] [facility], | | | | | | [place] [address] | | | | | | [phone] | | | | | | | [...] + + | [facility] | [address] | [place] | [phone] | | HOSPITAL LAB[facility]ORY | | [address] | | + + + + + [...] + + | [facility] | [address] | [place] | [phone] | | HOSPITAL LAB[facility]ORY | | [address] | | + + + + + [...] + + | [facility] | [address] | [place] | [phone] | | HOSPITAL LAB[facility]ORY | | [address] | | + + + + + [...] + + | [facility] | [address] | [place] | [phone] | | HOSPITAL LAB[facility]ORY | | [address] | | + + + + + [...] + + | [facility] | [address] | [place] | [phone] | | HOSPITAL LAB[facility]ORY | | [address] | | + + + + + [...] + + | [facility] | [address] | [place] | [phone] | | HOSPITAL LAB[facility]ORY | | [address] | | + + + + + [...] + + | [facility] | [address] | [place] | [phone] | | HOSPITAL LAB[facility]ORY | | [address] | | + + + + + [...] + + | [facility] | [address] | [place] | [phone] | | HOSPITAL LAB[facility]ORY | | [address] | | + + + + + [...] | mL/min/1.73m2 | [facility] | | | [facility] | | | H[facility] | | | [...] + + | [facility] | [address] | [place] | [phone] | | HOSPITAL LAB[facility]ORY | | [address] | | + + + + + [...] + + | [facility] | [address] | [place] | [phone] | | HOSPITAL LAB[facility]ORY | | [address] | | + + + + + [...] + + | [facility] | [address] | [place] | [phone] | | HOSPITAL LAB[facility]ORY | | [address] | | + + + + + [...] + + | [facility] | [address] | [place] | [phone] | | HOSPITAL LAB[facility] | | [address] | | + + + + + [...] + + | [facility] | [address] | [place] | [phone] | | HOSPITAL LAB[facility]ORY | | [address] | | + + + + + [...] | 35 - 45 mm Hg | [facility] | | | Arterial | | | [...] + + | [facility] | [address] | [place] | [phone] | | HOSPITAL LAB[facility]ATORY | | [address] | | + + + + + XR Chest AP Portable (08/17/2018 9:37 AM PDT) + + | Specimen | + + | | + + + + + | Impressions | Performed At | + + + | IMPRESSION: No significant interval change. Dictated by: Santana Anderson [facility] | | Aaron | | [...] | Stable bibasilar airspace disease.Dictated by: Santana Taylorectronically Signed by: | | Santana Walker on 08/17/2018 9:36 AM | | | |FINDINGS: | |The [...] + + | [facility] | [address] | [place] | [phone] | | HOSPITAL LAB[facility]ORY | | [address] | | + + + + + Differential, Manual (08/17/2018 5:10 AM PDT) + + [...] + + | [facility] | [address] | [place] | [phone] | | HOSPITAL LAB[facility]ORY | | [address] | | + + + + + [...] + + | [facility] | [address] | [place] | [phone] | | HOSPITAL LAB[facility]ORY | | [address] | | + + + + + [...] | mL/min/1.73m2 | [facility] | | | [facility] | RATE,ESTIMATED | | HOSPITAL | | | | mL/min/1.83u3Rvwt than | | LABORATORY | | | [...] + + | [facility] | [address] | [place] | [phone] | | HOSPITAL LAB[facility]ATORY | | [address] | | + + + + + [...] + + | [facility] | [address] | [place] | [phone] | | HOSPITAL LAB[facility]ORY | | [address] | | + + + + + [...] + + | [facility] | [address] | [place] | [phone] | | HOSPITAL [facility] | | [address] | | + + + + + [...] + + | [facility] | [address] | [place] | [phone] | | HOSPITAL LAB[facility] | | [address] | | + + + + + [...] + + | [facility] | [address] | [place] | [phone] | | HOSPITAL [facility] | | [address] | | + + + + + [...] + + | [facility] | [address] | [place] | [phone] | | HOSPITAL LAB[facility] | | [address] | | + + + + + [...] + + | [facility] | [address] | [place] | [phone] | | [facility] | | [address] | | + + + + + [...] + + | [facility] | [address] | [place] | [phone] | | HOSPITAL LAB[facility]ORY | | [address] | | + + + + + [...] | Procedure Note | + + | Dmeario, Rad Results In - 08/16/2018 8:49 AM [...] of support | | tubes.Dictated by: Santana Whittakeram | | 8:46 AM | | | [...] + + | [facility] | [address] | [place], [place] | [phone] | | HOSPITAL LAB[facility]ORY | | [address] | | + + + + + [...] + + | [facility] | [address] | [place] | [phone] | | HOSPITAL LAB[facility] | | [address] | | + + + + + [...] 225 | 150 - 450 K/uL | [place] [...] review confirms the stated values. | [facility] | | | [facility]PITAL | | | LABORATORY | + + + + + + + + | Performing | Address | City/State/Zipcode | Phone Number | | Organization | | | | + + + + + | [facility] | [address] | [place] | [phone] | | HOSPITAL LAB[facility]ORY | | [address] | | + + + + + [...] | mL/min/1.73m2 | [facility] | | | [facility] | | | [facility] | | | [...] + + | [facility] | [address] | [place] | [phone] | | HOSPITAL LAB[facility]ORY | | [address] | | + + + + + [...] + + | [facility] | [address] | [place] | [phone] | | HOSPITAL LAB[facility]ORY | | [address] | | + + + + + [...] + + | [facility] | [address] | [place] | [phone] | | HOSPITAL LAB[facility]ORY | | [address] | | + + + + + [...] + + | [facility] | [address] | [place] | [phone] | | HOSPITAL LAB[facility]ORY | | [address] | | + + + + + [...] + + | [facility] | [address] | [place] | [phone] | | HOSPITAL [facility] | | [address] | | + + + + + [...] + + | [facility] | [address] | [place] | [phone] | | HOSPITAL LAB[facility]ORY | | [address] | | + + + + + [...] + + | [facility] | [address] | [place] | [phone] | | HOSPITAL LAB[facility]ORY | | [address] | | + + + + + [...] 7.30 (L) | 7.35 - 7.45 | [facility] [...] | + + + + + | [facility] | [address] | [place] | [phone] | | HOSPITAL LAB[facility]ORY | | [address] | | + + + + + [...] + + | [facility] | [address] | [place] | [phone] | | HOSPITAL LAB[facility]ORY | | [address] | | + + + + + [...] + + | [facility] | [address] | [place] | [phone] | | HOSPITAL LAB[facility] | | [address] | | + + + + + [...] + + | [facility] | [address] | [place] | [phone] | | HOSPITAL LAB[facility]ORY | | [address] | | + + + + + ECG 12 lead (08/15/2018 8:53 AM PDT) + + | Specimen | + + | | + + + + + | Narrative | Performed At | + + + | Heart Rate: 78 | [facility] | | bpmQRS Interval: 94 msQT Interval: 436 msQTC Interval: 497 msP Clyde: | TRACEMASTER | | 18 degQRS Clyde: -32 degT Wave Clyde: 37 degP-R Interval: 244 msec- | | | ABNORMAL ECG -SINUS RHYTHMFIRST DEGREE AV BLOCKCONSIDER LEFT ATRIAL | | | ABNORMALITYLEFT AXIS DEVIATIONBORDERLINE PROLONGED QT INTERVAL | | |QRS Clyde: -32 deg | | |T Wave Clyde: 37 deg | | |P-R Interval: 244 [...] | + +---------+ + + | TERESA SOFIAR [facility]ER | | | | + +---------+ [...] the attending | LABORATORY | | physician. Rnzg-nwj-qstygux drugs may cross react with some methods. [...] + + | [facility] | [address] | [place] | [phone] | | HOSPITAL LAB[facility]ATORY | | [address] | | + + + + + Urinalysis with Microscopic with Culture if Indicated (08/15/2018 8:47 AM PDT) + + + + + + | Component | Value | Ref Range | Performed | Pathologist | | | | | At | Signature | + + + + + + | Color, | Yellow | Pale Yellow, | [place] | | | Urine | | Yellow | [facility] | | [...] - 1.030 | [place] | | | [place], | | | [facility] | | | [...] + + + + + + | White Blood | 0-2 | <=5 /HPF | [facility] | | | Cells, | | | [facility] | | | Urine | | | HOSPITAL | | | | | | LABORATORY | | + + + + + + | Red Blood | None Seen | <=5 /HPF | [facility] | | | Cells, | | | [facility] | | | Urine | | | HOSPITAL | | | | | | LABORATORY | | + + + + + + | Squamous | Moderate (A) | None Seen /LPF | [facility] | | | Epithelial | | | [facility] | | | Cells, | | | HOSPITAL | | | Urine | | | LABORATORY | | + + + + + + | Transitiona | Trace (A) | None Seen /HPF | [facility] | | | l | | | [facility] | | | Epithelial | | | HOSPITAL | | | Cells, | | | LABORATORY | | | Urine | | | | | + + + + + + | Bacteria, | None Seen | None Seen /HPF | [place] | | | Urine | | | [facility] | | | | | | HOSPITAL | | | | | | LABORATORY | | + + + + + + | Amorphous | Moderate (A) | None Seen /HPF | [facility] | | | Crystals, | | | [facility] | | | Urine | | | HOSPITAL | | | | | | LABORATORY | | + + + + + + | Urine | Urine Culture Not | | [facility] | | | Comment | Indicated | | [facility] | | [...] + + | [facility] | [address] | [place] | [phone] | | HOSPITAL LAB[facility]ORY | | [address] | | + + + + + [...] + + | [facility] | [address] | [place] | [phone] | | HOSPITAL LAB[facility]ORY | | [address] | | + + + + + [...] + | FiO2 | | % | [facility] | | | [...] + + | [facility] | [address] | [place] | [phone] | | HOSPITAL LAB[facility]ORY | | [address] | | + + + + + [...] + + | [facility] | [address] | [place] | [phone] | | HOSPITAL LAB[facility]ORY | | [address] | | + + + + + [...] + + | [facility] | [address] | [place] | [phone] | | HOSPITAL LAB[facility]ORY | | [address] | | + + + + + Senait BARRIOS (08/15/2018 8:39 AM PDT) + +-------+ + [...] + + | [facility] | [address] | [place] | [phone] | | HOSPITAL LAB[facility]ATORY | | [address] | | + + + + + [...] + + | [facility] | [address] | [place] | [phone] | | HOSPITAL LAB[facility]ORY | | [address] | | + + + + + [...] such as unstable angina or | [facility] | | non-Q wave myocardial infarction, cardiac troponin I levels provide | HOSPITAL | | useful prognostic information and aid in early detection of such | LABORATORY | | patients with an increased risk of . The Risk Stratification | | | cutpoint for the Troponin I method is 0.1 ng/mL. The diagnostic | | | cutoff point for the diagnosis of AK is 0.8 ng/mL for the Troponin I | | | method. | | + + + + + + + + | Performing | Address | City/State/Zipcode | Phone Number | | Organization | | | | + + + + + | [facility] | [address] | [place] | [phone] | | HOSPITAL LAB[facility]ATORY | | [address] | | + + + + + [...] | mL/min/1.73m2 | [facility] | | | [facility] | RATE,ESTIMATED | | HOSPITAL | | | | mL/min/1.18q0Bmsb than | | LABORATORY | | | [...] + + | [facility] | [address] | [place] | [phone] | | HOSPITAL LAB[facility]ATORY | | [address] | | + + + + + [...] Macrocytes, Few Microcytes, Slight Hypochromia. | [facility] | | | [facility] | | | LABORATORY | + + + + + + + + | Performing | Address | City/State/Zipcode | Phone Number | | Organization | | | | + + + + + | [facility] | [address] | [place] | [phone] | | HOSPITAL LAB[facility]ORY | | [address] | | + + + + + [...] | | Oral, DAILY, First dose on Bridgette | | 19 8:25 | | | [...] | | | First dose on [facility] 08/18/18 at 1030 | | AM [...] | | | | First dose on Wed08/18/18 at 1800 | | PM PDT | [...] | | | WEEKLY, First dose on Wed19 | | | at 0900 | | [...] | | | | AC, NPO, Daytime 0949-3267 Use | | | | | | | NIGHT DOSE for doses scheduled: | | | | | | | HS, 3AM, Nighttime 0742-2769 | | | | | | | [...] | | | dose on Wed08/18/18 at 1030, Give | | | | [...] PDT | | | | | ONCE, 08/16/18 at 0845, For 1 | | [...] PDT | | | | | ONCE, Wed08/17/18 at 0900, For 1 | | | [...] PDT | | | | | ONCE, 08/19/18 at 0830, For 1 | | | [...] | | | First dose on [facility] 08/18/18 at 1030, | | | | [...] | | | | | Intravenous, ONCE, Wed08/15/18 at | | AM PDT | | | | | 0900, For 1 dose | | | | | | + +-------+ +------+---+---+ +---+---+ | | | +---+---+ + +-------+ +---+---+---+ | nystatin (MYCOSTATIN) powder | Given | 08/20/19 | | | | | Topical, 2 TIMES DAILY, First | | 19 8:27 | | | | | dose on 08/16/18 at 0900, | | AM PDT | [...] PDT | | | | | Starting Tu08/16/18 at 1341, For | | | | [...] | | | | dose on [facility] 08/18/18 at 1100 | | AM [...] | | | First dose on [facility] 08/18/18 at 1030 | | AM [...] 200 mg | | | | Intravenous, PRNGregg Mon | | 19 5:03 | | [...] (DIPRIVAN) 10 | | | mg/mL Starting 08/15/18 at | | | 1723, For 1 dose, WILLIAN WYNN | | | B.: laura diallo, | | + +---+ | | | + +---+ + +-------+ +-------+---+---+ | rocuronium (ZEMURON) injection | Given | 08/16/19 | 40 mg | | | | PRN, Starting 08/15/18 at | | 19 5:03 | | [...] PDT | | | | | ONCE, 08/15/18 at 1200, For 1 | | | [...] tiZANidine (ZANAFLEX) tablet 4 | Given | 05/02/20 | 4 mg | | | | mg 4 mg, Oral, NIGHTLY, First | | 19 9:00 | | | | | dose on Bridgette 08/18/18 at 2100 | | PM PDT [...] | | mg 300 mg, Oral, NIGHTLY, | | 19 9:02 | | | | | dose on Wed08/18/18 at 2100 | | PM PDT | | | | + +-------+ +--------+---+---+ +---+---+ | | | +---+---+ + +---------+ + +--------+---+ | vancomycin 1,500 mg in sodium | New Bag | 08/16/19 | 1,500 mg | 176.7 | | | chloride 0.9% 250 mL IVPB ,500 | | 12:10 | | mL/hr | | | [...] | | | | First dose on Wed08/18/18 at 2100, | | [...]
--- OUTSIDE RECORDS SUMMARY | ~2019-09-02 | XMS | Encounter Summary ---
Demographics + + + | Address | [address] | | | [place] [address] | + + + | Home Phone | | + + + | Preferred Language | Unknown | + + + | Marital Status | Single | + + + | Jew Affiliation | Unknown | + + + | Race | Unknown | + + + | Ethnic Group | Unknown | + + + Author + + + | Author | [facility] | | | and [place] | + + + | Organization | [facility] | | | [...] | | | | | [place] [address] | | + + + + + | Robson Min | ECON | Unknown | | + + + + + | Isabella Whitehead | ECON | Unknown | | + + + + + | Seven Neff | ECON | Unknown | | + + + + + Care Team Providers + +------+ + | Care Supervisor Lime Name | Role | Phone | + [...] + + | 02/13/ | Telephone | [facility] | Jimbo Samayoa MD | Treatment Order | | 2019 | | HOSPITAL NEUROLOGY | [address] | | | | | CLINIC [address] | [place] | | | | | [address] [place] [place], | [address] | | | | | [place] [address] | | | | | | [phone] | | | +--------+ + + + [...] [place] | | | | | | [address] | | | | | | | | +--------+---------+ + + + | 11/05/ | Office | Neurology | Tariq, | | | 2020 | Visit | | [address] | | | | | [address] [place], | | | | | | [place] [address] | | | | | | [phone] | | | | | | | | +--------+---------+ + + + documented as of this encounter Visit Diagnoses Not on filedocumented in this encounter"
--- OUTSIDE RECORDS SUMMARY | ~2019-09-02 | XMS | Encounter Summary ---
Demographics + + + | Address | [address] | | | [place] [address] | + + + | Home Phone | | + + + | Preferred Language | Unknown | + + + | Marital Status | Single | + + + | Confucianist Affiliation | Unknown | + + + | Race | Unknown | + + + | Ethnic Group | Unknown | + + + Author + + + | Author | [facility] | | | and [place] | + + + | Organization | [facility] | | [...] | | | | | [place] [address] | | + + + + + | Robson Min | ECON | Unknown | | + + + + + | Isabella Whitehead | ECON | Unknown | | + + + + + | Seven Neff | ECON | Unknown | | + + + + + Care Team Providers + +------+ + | Care Broke Handler Name | Role | Phone | + +------+ + | Batr Ba DO | PCP | | + +------+ + Reason for Visit +--------+ + | Reason | Comments | +--------+ + | Other | repeat nocturnal pulse oximetry on O2 at 1 l/m | +--------+ + Encounter Details +--------+ + + + + | Date | Type | Department | Care Team | Description | +--------+ + + + + | 07/17/ | Telephone | [facility] | Navdeep [place], | Other (repeat | | 2018 | | PULMONARY [address] | MD [address] | nocturnal pulse | | | | [place], | [place] | oximetry on O2 at 1 | | | | [place] [address] | [address] | l/m) | | | | [phone] | | | +--------+ + + + [...] | 2019 | Visit | | [address] | | | | | | [place] | | | | | | [address] | | | | | | | | +--------+---------+ + + + | 11/05/ | Office | Neurology | Tariq, | | | 2019 | Visit | | [address] | | | | | [address] [place], | | | | | | [place] [address] | | | | | | [phone] | | | | | | | | +--------+---------+ + + + documented as of this encounter Visit Diagnoses Not on filedocumented in this encounter"
--- OUTSIDE RECORDS SUMMARY | ~2019-09-02 | XMS | Encounter Summary ---
Demographics + + + | Address | [address] | | | [place] [address] | + + + | Home Phone [...] | | | | | [place] [address] | | + + + + + | Robson Min | ECON | Unknown | | + + + + + | Isabella Whitehead | ECON | Unknown | | + + + + + | Seven Neff | ECON | Unknown | | + + + + + Care Team Providers + +------+ + | Care Director Speech Name | Role | Phone | + +------+ + | Ora Slater | PCP | | + +------+ + Encounter Details +--------+ + + + + | Date | Type | Department | Care Team | Description | +--------+ + + + + | 09/08/ | Documentati | [facility] | Neno Walker | | | 2019 | on | SLEEP DISORDER [address] | MD Srinivas [address] | | | | | [address] [place] | [address] [place] | | | | | [place] [address] | [place] [address] | | | | | [phone] | [phone] | | | | | | | [...] [place] | | | | | | [id number] | | | | | | | | +--------+---------+ + + + | 11/05/ | Office | Neurology | Tariq, | | | 2019 | Visit | | [address] | | | | | [address] [place], | | | | | | [place] [address] | | | | | | [phone] | | | | | | | | +--------+---------+ + + + documented as of this encounter Visit Diagnoses + + | Diagnosis | + + | Hypoventilation - Primary Other dyspnea and respiratory abnormality | + + documented in this encounter"
--- OUTSIDE RECORDS SUMMARY | ~2019-09-02 | XMS | Encounter Summary ---
Demographics + + + | Address | [address] | | | [place] [address] | + + + | Home Phone | | + + + | Preferred Language | Unknown | + + + | Marital Status | Single | + + + | Synagogue Affiliation | [employer] | + + + [...] | | | | | [place] [address] | | + + + + + Care Team Providers + +------+ + | Care Poultice Machine Operator Name | Role | Phone | + +------+ + PCP | Unavailable | + +------+ + Encounter Details +--------+ + + + + | Date | Type | Department | Care Team | Description | +--------+ + + + + | 10/31/ | Respiratory | | Other, Faculty | | | 2006 | Therapy | | [phone] | | +--------+ + + + + [...] + | MEDICAL GAS/HUMIDITY | Routin | 10/31/2005 | | Results for this | | | e | 1:05 AM | | procedure are in the | | | | PDT | | results section. | + +--------+ + + + documented in this encounter Results MEDICAL GAS/HUMIDITY (10/31/2005 1:05 AM PDT) + + + + + + | Component | Value | Ref Range | Performed | Pathologist | | | | | At | Signature | + + + + + + | [facility] | NASAL CANNULA AT 3.5 | | | | | GAS/HUMIDIT | Vinny Hackett, | | | | | Y | ACETYLENE CUTTER | | | | + + + [...] + + | [facility] | [address] | [place], [place] | | | DIAGNOSTICS - | [place] | [phone] | | | PULMONARY FUNCTION | | | | + + + + + documented in this encounter Visit Diagnoses Not on filedocumented in this encounter"
--- OUTSIDE RECORDS SUMMARY | ~2019-09-02 | XMS | Encounter Summary ---
Demographics + + + | Address | [address] | | | [place] [address] | + + + | Home Phone | | + + + | Preferred Language | Unknown | + + + | Marital Status | Single | + + + | Christianity Affiliation | CHR | + + + [...] | | | | | [place] [address] | | + + + + + Care Team Providers + +------+ + | Care Visual Journalist Name | Role | Phone | + +------+ + PCP | Unavailable | + +------+ + Encounter Details +--------+ + + + + | Date | Type | Department | Care Team | Description | +--------+ + + + + | 10/29/ | Respiratory | | Other, Faculty | | | 2006 | Therapy | | [phone] | | +--------+ + + + + [...] Ambrosio, | | | | | | MARKETING SENIOR RECRUITER | | | | + + + [...] [facility] | [address] | [place], [place] | | | DIAGNOSTICS - | [address] | [address] | | | PULMONARY FUNCTION | | | | + + + + + documented in this encounter Visit Diagnoses Not on filedocumented in this encounter"
--- OUTSIDE RECORDS SUMMARY | ~2019-09-02 | XMS | Encounter Summary ---
Demographics + + + | Address | [address] | | | [place] [address] | + + + | Home Phone [...] | | | | | [place] [address] | | + + + + + Care Team Providers + +------+ + | Care News Assignment Editor Name | Role | Phone | + [...] as of this encounter Discharge Summaries Interface, Icer Machine Operator In - 10/10/2005 1:[address] [address] [facility] MEDICAL SUMMARY OF HOSPITALIZATION Med [...] transferred from an outside hospital on the [facility]. She initially presented to the [...] was arranged, the patient will follow-up with Batr Elmore M.D., , is his office number, please obtain his fax number and fax this discharge summary to his office. CONDITION ON DISCHARGE: Condition on discharge is good. DISPOSITION: To home. DISCHARGE MEDICATIONS: 1. Cipro 500 mg p.o. b.i.d. times 14 days. 2. Metformin 500 mg p.o. every morning and 750 mg p.o. every night. 3. Synthroid 300 mcg p.o. everyday. 4. Yleyg-Voq-Vtlbqp one tablet p.o. everyday. 5. Vioxx 25 [...] AR:y00 FAX: BART ELMORE MD OFFICE NUMBER [phone] [id number] signed by Interface, Icer Machine Operator In at 10/10/2005 1:11 AM PDTdoc umented in this encounter Plan of Treatment Not on filedocumented as of this encounter Visit Diagnoses Not on filedocumented in this encounter"
--- OUTSIDE RECORDS SUMMARY | ~2019-09-02 | XMS | Encounter Summary ---
Demographics + + + | Address | [address] | | | [place] [address] | + + + | Home Phone [...] | | | | | [place] [address] | | + + + + + | Robson Min | ECON | Unknown | | + + + + + | Isabella Whitehead | ECON | Unknown | | + + + + + | Seven Neff | ECON | Unknown | | + + + + + Care Team Providers + +------+ + | Care Gear Tooth Lapping Machine Operator Name | Role | Phone [...] | Neurology | Diagnoses | Tariq, | Yao, | | | | | Migraine | Theo | Jimbo Box MD | | | | | with aura, | ANTENNA DESIGN ENGINEER [address] | | | | | intractable, | [address] | [place] | | | | | without | [place] | [place], [place] | | | | | status | [place], [place] | [address] Phone: | | | | | migrainosus | [address] | [phone] | | | | | Procedures | Phone: | Fax: | | | | | BOTOX | [phone] | [phone] | | | | | INJECTION | Fax: | | | | | | PAIN CLINIC | [phone] | | | | | | PROCEDURE [...] | | | DR [address] [place], | [address] | (Primary Dx) | | | | [place] [address] | | | | | | [phone] | | | +--------+ + + + [...] | 2020 | Visit | | MD [address] | | | | | | [place] | | | | | | [address] | | | | | | | | +--------+---------+ + + + | 11/05/ | Office | Neurology | Tariq, | | | 2019 | Visit | | [address] | | | | | | [address] [facility], | | | | | | [place] [address] | | | | | | [phone] | | | | | | | [...]
--- OUTSIDE RECORDS SUMMARY | ~2019-09-02 | XMS | Encounter Summary ---
Demographics + + + | Address | [address] | | | [place] [address] | + + + | Home Phone [...] | | | | | [place] [address] | | + + + + + | Robson Min | ECON | Unknown | | + + + + + | Isabella Whitehead | ECON | Unknown | | + + + + + | Seven Neff | ECON | Unknown | | + + + + + Care Team Providers + +------+ + | Care Teller Manager Name | Role | Phone | + +------+ + | Bart Ba DO | PCP | | + +------+ + Encounter Details +--------+ + + + + | Date | Type | Department | Care Team | Description | +--------+ + + + + | 11/19/ | Orders Only | [facility] | Lu Almazan, | COPD, mild (HCC); | | 2017 | | PULMONARY [address] | RN | Alveolar | | | | [place], | | hypoventilation; | | | | [place] [address] | | Hypoxemia | | | | [phone] | | | +--------+ + + + [...] [place] | | | | | | [id number] | | | | | | | | +--------+---------+ + + + | 11/05/ | Office | Neurology | Tariq, | | | 2019 | Visit | | [address] | | | | | | [address] [place], | | | | | | [place] [address] | | | | | | [phone] | | | | | | | [...]
--- OUTSIDE RECORDS SUMMARY | ~2019-09-02 | XMS | Encounter Summary ---
Demographics + + + | Address | [address] | | | [place] [address] | + + + | Home Phone | | + + + | Preferred Language | Unknown | + + + | Marital Status | Single | + + + | Pentecostalism Affiliation | CHR | + + + [...] | | | | | [place] [address] | | + + + + + Care Team Providers + +------+ + | Care Bus And Rail Operator Name | Role | Phone | + +------+ + PCP | Unavailable | + +------+ + Encounter Details +--------+ + + + + | Date | Type | Department | Care Team | Description | +--------+ + + + + | 10/29/ | Respiratory | | Other, Faculty | | | 2006 | Therapy | | [phone] | | +--------+ + + + + [...] Marcio | | | | | | AKLLIE KiserP | | | | + + [...] [facility] | [address] | [place], [place] | | | DIAGNOSTICS - | [address] | [address] | | | PULMONARY FUNCTION | | | | + + + + + documented in this encounter Visit Diagnoses Not on filedocumented in this encounter"
--- OUTSIDE RECORDS SUMMARY | ~2019-09-02 | XMS | Encounter Summary ---
Demographics + + + | Address | [address] | | | [place] [address] | + + + | Home Phone [...] | | | | | [place] [address] | | + + + + + | Robson Min | ECON | Unknown | | + + + + + | Isabella Whitehead | ECON | Unknown | | + + + + + | Seven Neff | ECON | Unknown | | + + + + + Care Team Providers + +------+ + | Care Talent Development Director Name | Role | Phone | [...] | Abnormal | MD Navdeep | [address] | | | | | chest CT | [address] | [place], | | | | | Procedures | [place] | [place] [address] | | | | | CT Chest wo | [place], | Phone: | | | | | [place] | [place] [address] | [phone] | | | | | | Phone: | Fax: | | | | | | [phone] | [phone] | | | | | | Fax: | | | | | | | [phone] | | +--------+--------+ + + + + Reason for Visit Diagnostic/Screening (Routine) +--------+--------+ + + + + | Status | Reason | Specialty | Diagnoses / | Referred By | Referred To | | | | | Procedures | Contact | Contact | +--------+--------+ + + + + | Closed | | Radiology | Diagnoses | Harjinder, | [address] | | | | | Abnormal | MD Navdeep | [address] | | | | | chest CT | [address] | [place], | | | | | Procedures | [place] | [place] [address] | | | | | CT Chest wo | [place], | Phone: | | | | | [place] | [place] [address] | [phone] | | | | | | Phone: | Fax: | | | | | | [phone] | [phone] | | | | | | Fax: | | | | | | | [phone] | | +--------+--------+ + + + + Encounter Details +--------+ + + + + | Date | Type | Department | Care Team | Description | +--------+ + + + + | 04/24/ | Hospital | [facility] | Navdeep Grande, | Abnormal chest CT | | 2015 | Encounter | MED CTR [address] | MD [address] | | | | | [place], | [place], [place] | | | | | [place] [address] | [address] | | | | | [phone] | | | +--------+ + + + [...] | 0 | 10/08/19 | | | iqijleptmr-qbyjtto-h | every 6 hours as | | [...] [place] | | | | | | [address] | | | | | | | | +--------+---------+ + + + | 11/05/ | Office | Neurology | Tariq, | | | 2019 | Visit | | [address] | | | | | | [address] [place], | | | | | | [place] [address] | | | | | | [phone] | | | | | | | | +--------+---------+ + + + documented as of this encounter Procedures + +--------+ + + + | Procedure Name | Priori | Date/Time | Associated Diagnosis | Comments | | | ty | | | | + +--------+ + + + | CT CHEST WO CONTRAST | Routin | 04/24/2014 | Abnormal chest CT | Results for this | | | [...] | | larger compared with studies from 2006. A 2 mm subpleural left | | [...] + | MISCELLANEOUS LAB | | | [phone] | + +---------+ + + | MISCELANIOUS LAB | | | [phone] | + +---------+ + + documented in this encounter Visit Diagnoses + + | Diagnosis | + + | Abnormal chest CT Nonspecific (abnormal) findings on radiological and other | | examination of other intrathoracic organs | + + documented in this encounter"
--- OUTSIDE RECORDS SUMMARY | ~2019-09-02 | XMS | Encounter Summary ---
Demographics + + + | Address | [address] | | | [place] [address] | + + + | Home Phone [...] | | | | | [place] [address] | | + + + + + | Robson Min | ECON | Unknown | | + + + + + | Isabella Whitehead | ECON | Unknown | | + + + + + | Seven Neff | ECON | Unknown | | + + + + + Care Team Providers + +------+ + | Care Instrumental Music Teacher Name | Role | Phone | [...] + + | 09/25/ | Telephone | [facility] | Cecilio Amato MD | Appointment | | 2013 | | GASTROENTEROLOGY | [address] | (schedule gastric | | | | [address] [place] | [place], [place] | emptying study); | | | | [address] [place], [place] | [address] | Results (lab test | | | | [address] | [phone] | celiac sprue test) | | | | [phone] | | | +--------+ + + + [...] [place] | | | | | | [address] | | | | | | | | +--------+---------+ + + + | 11/05/ | Office | Neurology | Tariq, | | | 2019 | Visit | | [address] | | | | | | [address] [place], | | | | | | [place] [address] | | | | | | [phone] | | | | | | | | +--------+---------+ + + + documented as of this encounter Visit Diagnoses Not on filedocumented in this encounter"
--- OUTSIDE RECORDS SUMMARY | ~2019-09-02 | XMS | Encounter Summary ---
Demographics + + + | Address | [address] | | | [place] [address] | + + + | Home Phone | | + + + | Preferred Language | Unknown | + + + | Marital Status | Single | + + + | Voodoo Affiliation | CHR | + + + [...] | | | | | [place] [address] | | + + + + + Care Team Providers + +------+ + | Care Laboratory Associate Name | Role | Phone | + +------+ + PCP | Unavailable | + +------+ + Encounter Details +--------+ + + + + | Date | Type | Department | Care Team | Description | +--------+ + + + + | 10/29/ | Respiratory | | Other, Faculty | | | 2006 | Therapy | | [phone] | | +--------+ + + + + [...] | | | | | | THERAPY. iLo Ambrosio, | | | | | | SWITCHGEAR REPAIRER | | | | + + [...] [facility] | [address] | [place], [place] | | | DIAGNOSTICS - | [address] | [address] | | | PULMONARY FUNCTION | | | | + + + + + documented in this encounter Visit Diagnoses Not on filedocumented in this encounter"
--- OUTSIDE RECORDS SUMMARY | ~2019-09-02 | XMS | Encounter Summary ---
Demographics + + + | Address | [address] | | | [place] [address] | + + + | Home Phone | | + + + | Preferred Language | Unknown | + + + | Marital Status | Single | + + + | Yazdanism Affiliation | CHR | + + + | Race | White | + + + | Ethnic Group | Not or | + + + Author + + + | Author | [facility] | + + + | Organization | [facility] | + + + | Address | Unknown | + + + | Phone | Unavailable | + + + Support + + + + + | Name | Relationship | Address | Phone | + + + + + | Scot Johnson | ECON | [address] | | | | | [place] [address] | | + + + + + Care Team Providers + +------+ + | Care Hull Line Crew Member Name | Role | Phone | + [...] Clinic | | | | | | [facility], [address] | | | | | | [place], [place] | | | | | | [address] | | | | | | [phone] | | | +--------+ + + + [...] + + + + + | [facility] | [address] | [place] [address] | | | PATHOLOGY | [address] | | | + + + + + | [facility] | [address] | [place] [address] | | | PATHOLOGY | [address] [...] + + + | [facility] | [address] | [place] [address] | | | LAB-MICRO | | | | + + + + + documented in this encounter Visit Diagnoses Not on filedocumented in this encounter"
--- OUTSIDE RECORDS SUMMARY | ~2019-09-02 | XMS | Encounter Summary ---
Demographics + + + | Address | [address] | | | [place] [address] | + + + | Home Phone [...] | | | | | [place] [address] | | + + + + + | Robson Min | ECON | Unknown | | + + + + + | Isabella Whitehead | ECON | Unknown | | + + + + + | Seven Neff | ECON | Unknown | | + + + + + Care Team Providers + +------+ + | Care Optical Dispenser Name | Role | Phone | + +------+ + | Bart Ba DO | PCP | | + +------+ + Encounter Details +--------+ + + + + | Date | Type | Department | Care Team | Description | +--------+ + + + + | 03/15/ | [facility] | [facility] | Jimbo Samayoa MD | Disorientation; | | 2017 | Encounter | HOSPITAL RESPIRATORY | [address] | Dizziness | | | | THERAPY [address] | [place] | | | | | [place] | [id number] | | | | | [address] | | | | | | [phone] | | | +--------+ + + + [...] + +---------+ + + | cloNIDine | | | 0 | 02/15/20 | | | (CATAPRES) 0.3 mg/24 | | | | 18 | 9 | | hr patch | | | | | | + [...] + + +---------+ + + | | | | 0 | 02/23/20 | | | HYDROcodone-acetamin | | | | 18 | 9 | | ophen (NORCO) | | | | | | | 7.5-325 mg per | | | | | | | tablet | | | | | | + + + +---------+ + + | IBU 800 MG tablet | | | 0 | 02/08/20 | | | | | | | 18 | 9 | + + + +---------+ + + | ketorolac (ACULAR) | ketorolac 0.5 % eye | | 0 | | | | 0.5% ophthalmic | drops instill 1 drop | | | | 9 | | solution | into left eye four | | | | | | | times a day until | | | | | | | finished BEGIN DROPS | | | | | | | THE DAY OF SURGERY | | | | | + + [...] + + +---------+ + + | LYRICA 150 MG | | | 0 | 02/08/20 | | | capsule | | | | 18 | 9 | + + + +---------+ + + | LYRICA 75 MG | Take one capsule | | 0 | 05/04/19 | | | capsule | three times daily | | | 17 | 9 | + + + +---------+ + + | ofloxacin | | | 0 | 01/29/20 | | | (OCUFLOX) 0.3% | | | | 18 | 9 | | ophthalmic solution | | | | | | + [...] + + + +---------+ + + | prednisoLONE (PRED | | | 0 | 01/29/20 | | | FORTE) 1% | | | | 18 | 9 | | ophthalmic | | | | | | | suspension | | | | | | + + + +---------+ + + | promethazine | Take 25 mg by mouth | | 0 | | | | (PHENERGAN) 25 mg | 3 times daily as | | | | 9 | | tablet | needed. | | | | | + + + +---------+ + + | Respiratory | iVAPSRespiratory | 1 each | 0 | 12/11/19 | | | Therapy Supplies | rate: 12VT: | | | 18 | 9 | | MISCIndications: | 550mlIPAP 19 [id number] | | | | | | Alveolar | 9 [id number] | | | | | | hypoventilation, | humidifier/tubingMas | | | | | | COPD, mild (HCC), | k per patient | | | | | | Hypoxemia, JESUSITA and | choice, chin strap | | | | | | COPD overlap | if | | | | | | syndrome (HCC) | appropriateSupplemen | | | | | | | edgar oxygen at 5 L/m | | | | | | | through | | | | | | | iPAPSDiagnosis: | | | | | | | obstructive sleep | | | | | | | apnea, COPD and | | | | | | | alveolar | | | | | | | hypoventilationDurat | | | | | | | ion: 99 months | | | | | + + [...] + + + +---------+ + + | UNIFINE PENTIPS | Daily. | | 0 | 12/04/19 | | | 31G X 8 MM | | | | 18 | 9 [...] documented as of this encounter Progress Notes Dong Jones LEGUILLON DEBEADER - 03/15/2018 12:18 PM PSTPatient said she uses oxygen at 3 L/min. 24 h ours/day and did not bring her portable oxygen system for her EEG appointment. Kait felt s light short of breath before EEG study so I put her on 3 L/ nc. After test Kait stated she would not oxygen on her way home. Dong Yan, ANGELITA - 03/15/2018 11:59 AM PSTAwake and drowsy EEG performed, p atient tolerated study well. documented in this encounter Plan of Treatment +--------+---------+ + + + | Date | Type | Specialty | Care Team | Description | +--------+---------+ + + + | 09/27/ | Office | Pulmonology | Navdeep Grande, | | | 2019 | Visit | | MD [address]ely [address] | | | | | | [place] | | | | | | [address] | | | | | | | | +--------+---------+ + + + | 11/05/ | Office | Neurology | Tariq, | | | 2019 | Visit | | [address] | | | | | | [address] [facility] | | | | | | [place] [address] | | | | | | [phone] | | | | | | | | +--------+---------+ + + + documented as of this encounter Procedures + +--------+ + + + | Procedure Name | Priori | Date/Time | Associated Diagnosis | Comments | | | ty | | | | + +--------+ + + + | EEG | Routin | 03/15/2018 | Disorientation | Results for this | | | e | 12:44 PM | Dizziness | procedure are in the | | [...] | signed | | + + + documented in this encounter Visit Diagnoses + + | Diagnosis | + + | Disorientation Other general symptoms | + + | Dizziness Dizziness and giddiness | + + documented in this encounter"
--- OUTSIDE RECORDS SUMMARY | ~2019-09-02 | XMS | Encounter Summary ---
Demographics + + + | Address | [address] | | | [place] [address] | + + + | Home Phone [...] | | | | | [place] [address] | | + + + + + | Robson Min | ECON | Unknown | | + + + + + | Isabella Whitehead | ECON | Unknown | | + + + + + | Seven Neff | ECON | Unknown | | + + + + + Care Team Providers + +------+ + | Care Dispute Coordinator Name | Role | Phone | [...] [address] | | | | | [place], | [place] | | | | | [place] [address] | [address] | | | | | [phone] | | | +--------+--------+ + + + [...] [place] | | | | | | [address] | | | | | | | | +--------+---------+ + + + | 11/05/ | Office | Neurology | Tariq, | | | 2019 | Visit | | [address] | | | | | [address] [place], | | | | | | [place] [address] | | | | | | [phone] | | | | | | | | +--------+---------+ + + + documented as of this encounter Visit Diagnoses Not on filedocumented in this encounter"
--- OUTSIDE RECORDS SUMMARY | ~2019-09-02 | XMS | Encounter Summary ---
Demographics + + + | Address | [address] | | | [place] [address] | + + + | Home Phone | | + + + | Preferred Language | Unknown | + + + | Marital Status | Single | + + + | Oriental Orthodox Affiliation | Unknown | + + + | Race | Unknown | + + + | Ethnic Group | Unknown | + + + Author + + + | Author | [facility] | | | and [place] | + + + | Organization | [facility] | | [...] | | | | | [place] [address] | | + + + + + | Robson Min | ECON | Unknown | | + + + + + | Isabella Whitehead | ECON | Unknown | | + + + + + | Seven Neff | ECON | Unknown | | + + + + + Care Team Providers + +------+ + | Care Sporting Goods Salesperson Name | Role | Phone | [...] | | | Pulmonology | obstructive | [address] | [address] | | | | | pulmonary | [address] | [place], | | | | | disease, | [place] | [place] [address] | | | | | unspecified | [address] | Phone: | | | | | ([facility]) | [place] | [phone] | | | | | Procedures | [address] | Fax: | | | | | F/U | Phone: | [phone] | | | | | | [phone] | | +--------+--------+ + + + + Encounter Details +--------+---------+ + + + | Date | Type | Department | Care Team | Description | +--------+---------+ + + + | 05/23/ | Office | [facility] | Navdeep Grande, | COPD, mild (HCC) | | 2016 | Visit | PULMONARY [address] | MD [address] | (Primary Dx); | | | | [place], | [place], [place] | Alveolar | | | | [place] [address] | [address] | hypoventilation; | | | | [phone] | | Tobacco use disorder | +--------+---------+ [...] find a support program: Free national quitline: 088-WWVB-LLH (825-173-4781). Hospital quit-smoking programs. [place] [employer]: (871.668.4362). [place] [employer] (295-970-3044). Support at home is important too. Nonsmokers can offer praise and encouragement. If the smo ker in your life finds it hard to quit, encourage them to keep trying! Hnoe-rlv-vofoccd medicines Nicotine replacement therapymay make quittingeasier. Certain [...] Air booklet from the National Cancer Institutehttp://smokefree.gov/si richar/default/files/pdf/loplmwzp-okv-sry-accessible.pdf 9230-5470 [employer]. [address] [place] [address], [place] [address]. All righ ts reserved. This information is not intended as a substitute for professional medical care. Always follow your healthcare professional's instructions. documented in this encounter Progress Notes Navdeep Grande MD - 05/23/2015 11:00 AM PSTFormatting of this note might be different f rom the original. Pulmonary Follow Up 05/23/2015 HPI Kait Min is a 44 y.o. female patient of Bart Ba, DO [...] currently on a daily regimen of Advair MDI for their COPD. They do feel like [...] Lumbago Nocturia Pyoderma gangreosum-LE Bipolar 1 disorder (HCC) Hypertension Lymphedema Nausea and vomiting Reflux esophagitis [...] mouth 4 times daily., Disp: , Rfl: wwddqgtrvk-wjmboja-yiqjkcnj (BUTALBITAL COMPOUND/ASA) per tablet, One tablet by [...] Gold stage I. Currently treated with Advair NEFFI and as needed Ventolin. Unfort unately Kait [...] [place] | | | | | | [address] | | | | | | | | +--------+---------+ + + + | 11/05/ | Office | Neurology | Tariq, | | | 2019 | Visit | | [address] | | | | | [address] [place], | | | | | | [place] [address] | | | | | | [phone] | | | | | | | [...]
--- OUTSIDE RECORDS SUMMARY | ~2019-09-02 | XMS | Encounter Summary ---
Demographics + + + | Address | [address] | | | [place] [address] | + + + | Home Phone [...] | | | | | [place] [address] | | + + + + + Care Team Providers + +------+ + | Care Sales And Marketing Director Name | Role | Phone | + +------+ + PCP | Unavailable | + +------+ + Encounter Details +--------+ + + + + | Date | Type | Department | Care Team | Description | +--------+ + + + + | 11/02/ | Respiratory | | Other, Faculty | | | 2006 | Therapy | | [phone] | | +--------+ + + + + [...] | | | Y | Lisa Wahl, UNION STEWARD | | | | + + + [...] [facility] | [address] | [place], [place] | | | DIAGNOSTICS - | [address] | [address] | | | PULMONARY FUNCTION | | | | + + + + + documented in this encounter Visit Diagnoses Not on filedocumented in this encounter"
--- OUTSIDE RECORDS SUMMARY | ~2019-09-02 | XMS | Encounter Summary ---
Demographics + + + | Address | [address] | | | [place] [address] | + + + | Home Phone [...] | | | | | [place] [address] | | + + + + + | Robson Min | ECON | Unknown | | + + + + + | Isabella Whitehead | ECON | Unknown | | + + + + + | Seven Neff | ECON | Unknown | | + + + + + Care Team Providers + +------+ + | Care Jackhammer Operator Name | Role | Phone | + +------+ + | Bart Ba DO | PCP | | + +------+ + Encounter Details +--------+ + + + + | Date | Type | Department | Care Team | Description | +--------+ + + + + | 04/04/ | Hospital | [facility] | Navdeep Grande, | Abnormal chest CT | | 2012 - | Encounter | MED CTR XRAY [address] | | | | | [place] | [place] | | | 04/06/ | | [place] [address] | [address] | | | 2011 | | [phone] | | | +--------+ + + + [...] | 0 | 10/08/19 | | | [id number] | every 6 hours as | | [...] [place] | | | | | | [place] | | | | | | [address] | | | | | | | | +--------+---------+ + + + | 11/05/ | Office | Neurology | Tariq, | | | 2019 | Visit | | [address] | | | | | | [address] [facility], | | | | | | [place] [address] | | | | | | [phone] | | | | | | | [...] Performed At | + + + | [facility] | [place] | | Department [address] | [facility] | | [ rep [address]] [ rep [facility] | | st zip] Signed | - IMAGING | | | | | Patient Name: CARLINE MIN Physician: | | | RODRI : 1970 Age: 41 Sex: F Unit #: [id number] | | | Exam Date: 04/04/12 [place] [facility] [place] | | Report #: [id number] Page: | | | %(RAD)RES..mtdd.print.filter("pg") of %(RAD) | | | RES..mtdd.print.filter("tpg") | | | | | | Accession Number: [id number] | | | CHEST X-RAY, 04/04/2012 CLINICAL [...] | | | Transcribed Date/Time: 04/04/2012 15:34 Router Operator Radial: | | | <<Signature on File>> | | | Magdy | | | MD Shaun04/05/12 0055 <Electronically signed by Magdy Dunn MD> | | | Magdy Dunn MD 04/04/12 1225 Router Operator Radial: Webmelody | | | Wwrdilpvoxzhy79/17/12 1534 Navdeep Grande MD | | | | | + + + + + + + + | Performing | Address | City/State/Zipcode | Phone Number | | Organization | | | | + + + + + | [address] | [address] | [place] | [phone] | | [facility] | | [address] | | | - IMAGING | | | | + + + + + documented in this encounter Visit Diagnoses + + | Diagnosis | + + | Abnormal chest CT Nonspecific (abnormal) findings on radiological and other | | examination of other intrathoracic organs | + + documented in this encounter
--- OUTSIDE RECORDS SUMMARY | ~2019-09-02 | XMS | Encounter Summary ---
Demographics + + + | Address | [address] | | | [place] [address] | + + + | Home Phone [...] | | | | | [place] [address] | | + + + + + | Robson Min | ECON | Unknown | | + + + + + | Isabella Whitehead | ECON | Unknown | | + + + + + | Seven Neff | ECON | Unknown | | + + + + + Care Team Providers + +------+ + | Care Automotive Service Technician Name | Role | Phone | [...] | SR | | | | | GARY AGUIL[address] [facility] | | | | | | [place], [place] | | | | | | [address] | | | | | | [phone] | | | +--------+ + + + [...] [place] | | | | | | [id number] | | | | | | | | +--------+---------+ + + + | 11/05/ | Office | Neurology | Tariq, | | | 2019 | Visit | | [address] | | | | | | [address] [place], | | | | | | [place] [address] | | | | | | [phone] | | | | | | | | +--------+---------+ + + + documented as of this encounter Visit Diagnoses Not on filedocumented in this encounter
--- OUTSIDE RECORDS SUMMARY | ~2019-09-02 | XMS | Encounter Summary ---
Demographics + + + | Address | [address] | | | [place] [address] | + + + | Home Phone [...] | | | | | [place] [address] | | + + + + + Care Team Providers + +------+ + | Care Ballaster Name | Role | Phone | + +------+ + PCP | Unavailable | + +------+ + Encounter Details +--------+ + + + + | Date | Type | Department | Care Team | Description | +--------+ + + + + | 11/12/ | Transcribed | Allergy Clinic at | Dictation, Other | Transcribed | | 1997 | | [place] [address] | | | | | | [address] | | | | | | T[address] [place] | | | | | | [facility], [address] [place] [address] | | | | | | [place], [place] | | | | | | [address] | | | | | | [phone] | | | +--------+ + + + [...] as of this encounter Progress Notes Interface, Cook Apprentice In - 05/05/2006 1:04 AM PST [address] [address] or November 12, 1997 HERMAN ELMORE MD [address] [place] [address] RE:CARLINE MIN MR#:[id number] Elmore: We saw your patient, Carline Min, for a rheumatoid consultation at the [facility] on November 12, 1997. The patient was seen in Rheumatology Clinic, staffed by Dr. Deyvi Lainez. Enclosed, you will find a summary of our findings. She will follow up with Dr. Rashid Dawson, a Rheumatology Fellow in two months. She was instructed regarding the importance of getting complete blood counts and liver function tests every month. We would also appreciate it if a copy of her laboratory work could be faxed to our clinic, attention Dr. Rashid Dawson. The fax number is . Thank you very much for this very interesting consultation. If you have any further questions, please feel free to contact Dr. Dawson, Dr. Lainez, or myself. Sincerely, Daniel Laurent M.D. Skin Piler, Internal Medicine Deyvi Lainez M.D. Parcel Wrapper, Rheumatology ECS/AB:cak documented in this encounter Plan of Treatment Not on filedocumented as of this encounter Visit Diagnoses Not on filedocumented in this encounter"
--- OUTSIDE RECORDS SUMMARY | ~2019-09-02 | XMS | Encounter Summary ---
Demographics + + + | Address | [address] | | | [place] [address] | + + + | Home Phone | | + + + | Preferred Language | Unknown | + + + | Marital Status | Single | + + + | Mandaeism Affiliation | CHR | + + + [...] | | | | | [place] [address] | | + + + + + Care Team Providers + +------+ + | Care Beekeeper Farmer Name | Role | Phone | [...]
--- OUTSIDE RECORDS SUMMARY | ~2019-09-02 | XMS | Encounter Summary ---
Demographics + + + | Address | [address] | | | [place] [address] | + + + | Home Phone [...] | | | | | [place] [address] | | + + + + + Care Team Providers + +------+ + | Care Field Nurse Case Manager Name | Role | Phone | + +------+ + PCP | Unavailable | + +------+ + Encounter Details +--------+ + + + + | Date | Type | Department | Care Team | Description | +--------+ + + + + | 10/29/ | Respiratory | | Other, Faculty | | | 2006 | Therapy | | [phone] | | +--------+ + + + + [...] [facility] | [address] | [place], [place] | | | DIAGNOSTICS - | [address] | [address] | | | PULMONARY FUNCTION | | | | + + + + + documented in this encounter Visit Diagnoses Not on filedocumented in this encounter"
--- OUTSIDE RECORDS SUMMARY | ~2019-09-02 | XMS | Encounter Summary ---
Demographics + + + | Address | [address] | | | [place] [address] | + + + | Home Phone [...] + + + | Author | [facility] | | | and [place] | + + + | Organization | [facility] | | | and [place] | + + + | Address | Unknown | + + + | Phone | Unavailable | + + + Support + + + + + | Name | Relationship | Address | Phone | + + + + + | Isbaella Min | ECON | [address] | | | | | [place] [address] | | + + + + + | Robson Min | ECON | Unknown | | + + + + + | Isabella Whitehead | ECON | Unknown | | + + + + + | Seven Neff | ECON | Unknown | | + + + + + Care Team Providers + +------+ + | Care Intelligence Senior Sergeant Name | Role | Phone | + [...] | MED CTR EXTERNAL | MD [address] | | | | | IMAGING [address] | [address] | | | | | [address] | [place] [address] | | | | | [place] [address] | | | | | | [phone] | | | +--------+ + + + [...] [place] | | | | | | [address] | | | | | | | | +--------+---------+ + + + | 11/05/ | Office | Neurology | Tariq, | | | 2019 | Visit | | [address] | | | | | | [address] [place], | | | | | | [place] [address] | | | | | | [phone] | | | | | | | [...]
--- OUTSIDE RECORDS SUMMARY | ~2019-09-02 | XMS | Encounter Summary ---
Demographics + + + | Address | [address] | | | [place] [address] | + + + | Home Phone [...] | | | | | [place] [address] | | + + + + + | Robson Min | ECON | Unknown | | + + + + + | Isabella Whitehead | ECON | Unknown | | + + + + + | Seven Neff | ECON | Unknown | | + + + + + Care Team Providers + +------+ + | Care Rn Recruitment Name | Role | Phone | + [...] | | | | | disease, | [place], | [place] [address] | | | | | unspecified | [place] | Phone: | | | | | ([facility]) | [address] | [phone] | | | | | Obstructive | Phone: | Fax: | | | | | sleep apnea | [phone] | [phone] | | | | | (adult) | Fax: | | | | | | (pediatric) | [phone] | | | | | | Procedures [...] + + | 01/25/ | Office | [facility] | Navdeep Grande, | COPD, moderate ([facility]) | | 2019 | Visit | PULMONARY [address] | MD [address] | (Primary Dx); | | | | [place], | [place], [place] | Tobacco use | | | | [place] [address] | [address] | disorder; Alveolar | | | | [phone] | | hypoventilation; | | | | [...] Wash your hands often. Use alcohol-based hand melt supervisor when you don t have access to soap and water. Don t touch your eyes, nose, and mouth. This may help you keep germs out of your body. Try to avoid people with respiratory infections. You may want to stay out of crowds rita ng flu season (winter). Ask your healthcare [...] and open the door. Date Last Reviewed: 03/19/201619990140-9501 The [employer]. [address] [place] [address], [place] [address]. All righ ts reserved. This information is [...] Since her last clinic appointment Ms. Ap harmon has discontinued supplemental oxygen with exertion.. They [...] changes Acid reflux disease Angina pectoris ([facility]) Arrhythmia Bipolar 1 disorder ([facility]) CHRONIC TENSION HEADACHE Classical migraine without mention of intractable migraine Diabetes mellitus, type 2 ([facility]) Empyema lung ([facility]) 2006 right GI bleeding Hypercholesterolemia Hypertension Hypothyroidism IBS (irritable bowel syndrome) Knee pain Lymphedema Myocardial infarction ([facility]) Nausea and vomiting Nocturia Obesity Panic anxiety syndrome Pneumonia Pyoderma gangreosum-LE RA (rheumatoid arthritis) ([facility]) Followed by Dr. Becerra Rheumologist in [place] Reflux esophagitis Restless leg syndrome Urinary [...] p: , Rfl: Continuous Blood Gluc Sensor ([employer] HUAN 14 DAY SENSOR) [facility], , Disp: , Rfl: DOK 100 MG capsule, Take 100 mg by mouth 2 times daily., Disp: , Rfl: ergocalciferol (VITAMIN D-2) 50,000 units capsule, Take 50,000 Units by mouth Once a w [place]., Disp: , Rfl: fluticasone-salmeterol (ADVAIR HFA) 115-21 [...] daily., Disp: , Rfl: Respiratory Therapy Supplies [facility], Portable oxygen concentrator to provide O2 at [...] QUADR W/PRES (PED/ADOL/ADULT) MULTIDOSE 01/27/2017, 02/10/2018 INFLUENZA, P0X8-88, UNSPECIFIED 03/09/2009 INFLUENZA, UNSPECIFIED FORMULATION 04/27/2000, 02/04/2011, [...] [place] | | | | | | [id number] | | | | | | | | +--------+---------+ + + + | 11/05/ | Office | Neurology | Tariq, | | | 2019 | Visit | | Theo, [address] | | | | | | [address] [facility], | | | | | | [place] [address] | | | | | | [phone] | | | | | | | [...]
--- OUTSIDE RECORDS SUMMARY | ~2019-09-02 | XMS | Encounter Summary ---
Demographics + + + | Address | [address] | | | [place] [address] | + + + | Home Phone | | + + + | Preferred Language | Unknown | + + + | Marital Status | Single | + + + | Congregation Affiliation | Unknown | + + + | Race | Unknown | + + + | Ethnic Group | Unknown | + + + Author + + + | Author | [facility] | | | and [place] | + + + | Organization | [facility] | | | and [...] | | | | | [place] [address] | | + + + + + | Robson Min | ECON | Unknown | | + + + + + | Isabella Whitehead | ECON | Unknown | | + + + + + | Seven Neff | ECON | Unknown | | + + + + + Care Team Providers + +------+ + | Care Felling Bucking Supervisor Name | Role | Phone | + +------+ + | Ora Slater PA | PCP | | + +------+ + Encounter Details +--------+ + + + + | Date | Type | Department | Care Team | Description | +--------+ + + + + | 09/22/ | Hospital | [facility] | Navdeep Grande, | COPD, mild (HCC) | | 2019 | Encounter | MED CTR PULMONARY | [address] | | | | | FUNCTION [address] | [place] | | | | | [place], | [address] | | | | | [place] [address] | | | | | | [phone] | Neno Walker | | | | | | MD Srinivas [address] | | | | | | [address] [place] | | | | | | [place] [address] | | | | | | [phone] | | | | | | | [...] [place] | | | | | | [address] | | | | | | | | +--------+---------+ + + + | 11/05/ | Office | Neurology | Tariq, | | | 2019 | Visit | | [address] | | | | | | [address] [place], | | | | | | [place] [address] | | | | | | [phone] | | | | | | | [...] Grande MD 09/22/2018 | | | 14:54[facility] | | |physiology. Lung volume testing [...] Grande MD 09/22/2018 14:54 | | |[facility] | | + + + documented in this encounter Visit Diagnoses + + | Diagnosis | + + | COPD, mild (HCC) Chronic airway obstruction, not elsewhere classified | + + documented in this encounter"
--- OUTSIDE RECORDS SUMMARY | ~2019-09-02 | XMS | Encounter Summary ---
Demographics + + + | Address | [address] | | | [place] [address] | + + + | Home Phone | | + + + | Preferred Language | Unknown | + + + | Marital Status | Single | + + + | Tenriism Affiliation | Unknown | + + + | Race | Unknown | + + + | Ethnic Group | Unknown | + + + Author + + + | Author | [facility] | | | and [place] | + + + | Organization | [facility] | | [...] | | | | | [place] [address] | | + + + + + | Robson Min | ECON | Unknown | | + + + + + | Isabella Whitehead | ECON | Unknown | | + + + + + | Seven Neff | ECON | Unknown | | + + + + + Care Team Providers + +------+ + | Care Hand Or Machine Paster Name | Role | Phone | + [...] | | | Pulmonology | (chronic | [address] | [address] | | | | | obstructive | [address] | [place], | | | | | pulmonary | [place] | [place] [address] | | | | | disease) | 3[address]106 | Phone: | | | | | ([facility]) | [place] | [phone] | | | | | Procedures | [address] | Fax: | | | | | F/U APPT DR | Phone: | [phone] | | | | | DARRICK JOHNATHAN | [phone] | | | | | | 11/19/17 | | | +--------+--------+ + + + + Encounter Details +--------+---------+ + + + | Date | Type | Department | Care Team | Description | +--------+---------+ + + + | 12/10/ | Office | [facility] | Navdeep Grande, | Alveolar | | 2018 | Visit | PULMONARY [address] | MD [address] | hypoventilation | | | | [place], | [place] | (Primary Dx); COPD, | | | | [place] [id number] | [address] | mild ([facility]); | | | | [phone] | | Hypoxemia; JESUSITA and | | [...] need to be calibrated. Someone from your [facility] team will adjust the settings. That person [...] irritation from your mask Date Last Reviewed: 05/20/201619999627-3798 The [employer]. [address] [place] [address]. All righ ts reserved. This information is [...] 50,000 Units by mouth Once a w [place]., Disp: , Rfl: fluticasone-salmeterol (ADVAIR DISKUS) 250-50 [...] one month after initiating iVAPS. CC: Bart Ba DOElectroncatalino signed by Navdeep Grande MD at 01/05/2018 10:57 AM PDT documented in this encounter Plan of Treatment +--------+---------+ + + + | Date | Type | Specialty | Care Team | Description | +--------+---------+ + + + | 09/27/ | Office | Pulmonology | Navdeep Grande, | | | 2019 | Visit | | [address] | | | | | | [place] | | | | | | [address] | | | | | | | | +--------+---------+ + + + | 11/05/ | Office | Neurology | Tariq, | | | 2019 | Visit | | [address] | | | | | | [address] [facility], | | | | | | [place] [address] | | | | | | [phone] | | | | | | | [...]
--- OUTSIDE RECORDS SUMMARY | ~2019-09-02 | XMS | Encounter Summary ---
Demographics + + + | Address | [address] | | | [place] [address] | + + + | Home Phone [...] | | | | | [place] [address] | | + + + + + Care Team Providers + +------+ + | Care Files Supervisor Name | Role | Phone | + +------+ + PCP | Unavailable | + +------+ + Encounter Details +--------+ + + + + | Date | Type | Department | Care Team | Description | +--------+ + + + + | 10/30/ | Respiratory | | Other, Faculty | | | 2006 | Therapy | | [phone] | | +--------+ + + + + [...] Hackett, | | | | | | MANAGER COST | | | | + + + [...] [facility] | [address] | [place], [place] | | | DIAGNOSTICS - | [address] | [address] | | | PULMONARY FUNCTION | | | | + + + + + documented in this encounter Visit Diagnoses Not on filedocumented in this encounter"
--- OUTSIDE RECORDS SUMMARY | ~2019-09-02 | XMS | Encounter Summary ---
Demographics + + + | Address | [address] | | | [place] [address] | + + + | Home Phone | | + + + | Preferred Language | Unknown | + + + | Marital Status | Single | + + + | Yarsanism Affiliation | Unknown | + + + | Race | Unknown | + + + | Ethnic Group | Unknown | + + + Author + + + | Author | [facility] | | | and [place] | + + + | Organization | [facility] | | [...] | | | | | [place] [address] | | + + + + + | Robson Min | ECON | Unknown | | + + + + + | Isabella Whitehead | ECON | Unknown | | + + + + + | Seven Neff | ECON | Unknown | | + + + + + Care Team Providers + +------+ + | Care Stogy Maker Name | Role | Phone | + +------+ + | Ora Slater PA | PCP | | + +------+ + Encounter Details +--------+ + + + + | Date | Type | Department | Care Team | Description | +--------+ + + + + | 09/22/ | Hospital | [facility] | Navdeep Grande, | COPD, mild (HCC) | | 2019 | Encounter | MED CTR PULMONARY | [address] | | | | | FUNCTION [address] | [place] | | | | | [place], | [address] | | | | | [place] [address] | | | | | | [phone] | Neno Walker | | | | | | MD Srinivas [address] | | | | | | [address] [place] | | | | | | [place] [address] | | | | | | [phone] | | | | | | | [...] [place] | | | | | | [address] | | | | | | | | +--------+---------+ + + + | 11/05/ | Office | Neurology | Tariq, | | | 2019 | Visit | | [address] | | | | | | [address] [place], | | | | | | [place] [address] | | | | | | [phone] | | | | | | | [...] Grande MD 09/22/2018 | | | 14:54[facility] | | |physiology. Lung volume testing is [...] Grande MD 09/22/2018 14:54 | | |[facility] | | + + + documented in this encounter Visit Diagnoses + + | Diagnosis | + + | COPD, mild (HCC) Chronic airway obstruction, not elsewhere classified | + + documented in this encounter"
--- OUTSIDE RECORDS SUMMARY | ~2019-09-02 | XMS | Encounter Summary ---
Demographics + + + | Address | [address] | | | [place] [address] | + + + | Home Phone [...] + + + | Author | [facility] | + + + | Organization | [facility] | + + + | Address | Unknown | + + + | Phone | Unavailable | + + + Support + + + + + | Name | Relationship | Address | Phone | + + + + + | Scot Johnson | ECON | [address] | | | | | [place] [address] | | + + + + + Care Team Providers + +------+ + | Care Double End Sewer Name | Role | Phone | + [...] | [address] | [address] [place] [address] | | | | | Mailcode: L[address] | [place], [place] | | | | | [facility] | [address] | | | | | [place], [place] | [phone] | | | | | [address] | | | | | | [phone] | | | +--------+ + + + [...] [facility] | [address] [facility] [facility] [address] | [place] [address] | | | PATHOLOGY | [address] | | | + + + + + | [facility] | [address] [place] [address] | [place] [address] | | | PATHOLOGY | [address] [...] | + + + + + | [facility] DEPARTMENT OF | [address] | [place] [address] | | | PATHOLOGY | [address] | | | + + + + + | [facility] DEPARTMENT OF | [address] | [place] [address] | | | PATHOLOGY | [address] [...] [facility] | [address] [facility] [facility] | [place] [address] | | | PATHOLOGY | [address] | | | + + + + + | [facility] | [address] [facility] [facility] | [place] [address] | | | PATHOLOGY | [address] [...] | + + + + + | [facility] DEPARTMENT OF | [address] | [place] [address] | | | PATHOLOGY | [address] | | | + + + + + | [place] DEPARTMENT OF | [address] | [place] [address] | | | PATHOLOGY | [address] [...] | + + + + + | [facility] DEPARTMENT | [address] [facility] [facility] | [place] [address] | | | PATHOLOGY | [address] | | | + + + + + | [facility] | [address] [facility] [facility] | [place] [address] | | | PATHOLOGY | [address] [...] | + + + + + | [facility] DEPARTMENT OF | [address] | [place] [address] | | | PATHOLOGY | [address] | | | + + + + + | [facility] DEPARTMENT OF | [address] | [place] [address] | | | PATHOLOGY | [address] [...] DEPARTMENT OF | [address] | [place] [address] | | | PATHOLOGY | [address] | | | + + + + + | [facility] DEPARTMENT OF | [address] | [place] [address] | | | PATHOLOGY | [address] [...] | + + + + + | [facility] OF | [address] | [place] [address] | | | PATHOLOGY | [address] | | | + + + + + | [facility] OF | [address] | [place] [address] | | | PATHOLOGY | [address] [...] DEPARTMENT OF | [address] | [place] [address] | | | PATHOLOGY | [address] | | | + + + + + | [facility] | [address] | [place] [address] | | | PATHOLOGY | [address] | | | + + + + + documented in this encounter Visit Diagnoses Not on filedocumented in this encounter"
--- OUTSIDE RECORDS SUMMARY | ~2019-09-02 | XMS | Encounter Summary ---
Demographics + + + | Address | [address] | | | [place] [address] | + + + | Home Phone [...] | | | | | [place] [address] | | + + + + + | Robson Escobar | ECON | Unknown | | + + + + + | Isabella Whitehead | ECON | Unknown | | + + + + + | Seven Neff | ECON | Unknown | | + + + + + Care Team Providers + +------+ + | Care Software Developer Intern Name | Role | Phone | [...] Alessia Salgado | | | | | [place], [place] | [place] [address] | | | | | [address] | [phone] | | | | | [phone] | | | +--------+ + + + [...] [place] | | | | | | [address] | | | | | | | | +--------+---------+ + + + | 11/05/ | Office | Neurology | Tariq, | | | 2019 | Visit | | ANGELA Ven[address]as [address] | | | | | [address] [place], | | | | | | [place] [address] | | | | | | [phone] | | | | | | | [...] LVLs A4C: 7.85 cm | | | Sheet Roller Operator: SAL Authenticated by: Braden Isabel Report | [...] MOD A4C: 46.26 mlLVLs A4C: 7.85 cm Sheet Roller Operator: | | DHAuthenticated by: Braden Tucker Date/Time: [...] |LVLs A4C: 7.85 cm | | | |Sheet Roller Operator: SAL | |Authenticated by: Braden Isabel | |Report Date/Time: 09-21-2015 16:05:10 | | | |IMPRESSION: | |1. Overall left ventricular systolic function is normal with, an EF between 65 - 70 %. | + + documented in this encounter Visit Diagnoses Not on filedocumented in this encounter"
--- OUTSIDE RECORDS SUMMARY | ~2019-09-02 | XMS | Encounter Summary ---
Demographics + + + | Address | [address] | | | [place] [address] | + + + | Home Phone [...] | | | | | [place] [address] | | + + + + + Care Team Providers + +------+ + | Care Section Maintainer Name | Role | Phone | + [...] as of this encounter Progress Notes Interface, Line Prep Cook In - 01/09/2006 1:08 AM ELIZAB[place] [facility] [place], [place] [address] or April 04, 2001 Tracy Koo M.D. [address] [address] RE: CARLINE MIN MR #: [id number] Dear [...] her to travel all the way from [place] to [place] for these appointments, but unfortunately, I have [...] has a child and lives outside of [place], [place]. She does not smoke, drink, or [...] 2 through 5 bilaterally. She has preserved mortgage loan funder strength, but lacks full mortgage loan funder range of motion of 4th and 5th [...] it occurred in a local area of [place], and the patient cannot recall much information [...] referring your patient to Rheumatology Clinic at [facility]. Please contact me after you receive this letter with your thoughts on Remicade in this patient. You can page me through the [facility] undercutter operator at [phone] and ask them to page Dr. Dorene Waite, or you can leave a message and a time for me to contact you at [phone]. Our fax number at the clinic is [phone]. Sincerely Dorene Waite M.D. Rheumatology Fellow Deyvi Lainez M.D. CO / [id number] / [id number] / [id number] / [id number] signed by Interface, Line Prep Cook In at 01/09/2006 1:08 AM PDTdoc umented in this encounter Plan of Treatment Not on filedocumented as of this encounter Visit Diagnoses Not on filedocumented in this encounter"
--- OUTSIDE RECORDS SUMMARY | ~2019-09-02 | XMS | Encounter Summary ---
Demographics + + + | Address | [address] | | | [place] [address] | + + + | Home Phone [...] | | | | | [place] [address] | | + + + + + | Robson Min | ECON | Unknown | | + + + + + | Isabella Whitehead | ECON | Unknown | | + + + + + | Seven Neff | ECON | Unknown | | + + + + + Care Team Providers + +------+ + | Care Clinic Office Coordinator Name | Role | Phone | + +------+ + | Bart Ba DO | PCP | | + +------+ + Encounter Details +--------+ + + + + | Date | Type | Department | Care Team | Description | +--------+ + + + + | 08/20/ | Imaging | [facility] | Provider, | | | 2018 | Exam | MED CTR EXTERNAL | MD Shira [address] | | | | | IMAGING [address] | [address] | | | | | [address] | [place] [address] | | | | | [place] [address] | | | | | | [phone] | | | +--------+ + + + [...] [place] | | | | | | [address] | | | | | | | | +--------+---------+ + + + | 11/05/ | Office | Neurology | Tariq, | | | 2019 | Visit | | [address] | | | | | [address] [place] [place], | | | | | | [place] [address] | | | | | | [phone] | | | | | | | [...]
--- OUTSIDE RECORDS SUMMARY | ~2019-09-02 | XMS | Encounter Summary ---
Demographics + + + | Address | [address] | | | [place] [address] | + + + | Home Phone [...] | | | | | [place] [address] | | + + + + + | Robson Min | ECON | Unknown | | + + + + + | Isabella Whitehead | ECON | Unknown | | + + + + + | Seven Neff | ECON | Unknown | | + + + + + Care Team Providers + +------+ + | Care Lubrication Supervisor Name | Role | Phone | + +------+ + | Bart Ba DO | PCP | | + +------+ + Encounter Details +--------+ + + + + | Date | Type | Department | Care Team | Description | +--------+ + + + + | 08/20/ | Imaging | [facility] | Provider, | | | 2018 | Exam | MED CTR EXTERNAL | MD [address]ira [address] | | | | | IMAGING [address] | [address] | | | | | [address] | [place] [address] | | | | | [place] [address] | | | | | | [phone] | | | +--------+ + + + [...] [place] | | | | | | [address] | | | | | | | | +--------+---------+ + + + | 11/05/ | Office | Neurology | Tariq, | | | 2019 | Visit | | [address] | | | | | [address] [place] [place], | | | | | | [place] [address] | | | | | | [phone] | | | | | | | [...]
--- OUTSIDE RECORDS SUMMARY | ~2019-09-02 | XMS | Encounter Summary ---
Demographics + + + | Address | [address] | | | [place] [address] | + + + | Home Phone [...] | | | | | [place] [address] | | + + + + + Care Team Providers + +------+ + | Care Sed High School Teacher Name | Role | Phone | + +------+ + PCP | Unavailable | + +------+ + Encounter Details +--------+ + + + + | Date | Type | Department | Care Team | Description | +--------+ + + + + | 11/01/ | Respiratory | | Other, Faculty | | | 2006 | Therapy | | [phone] | | +--------+ + + + + [...] | | | Y | Lisa Wahl, COMBER OPERATOR | | | | + + [...] [facility] | [address] | [place], [place] | | | DIAGNOSTICS - | [place] | [address] | | | PULMONARY FUNCTION | | | | + + + + + documented in this encounter Visit Diagnoses Not on filedocumented in this encounter"
--- OUTSIDE RECORDS SUMMARY | ~2019-09-02 | XMS | Encounter Summary ---
Demographics + + + | Address | [address] | | | [place] [address] | + + + | Home Phone | | + + + | Preferred Language | Unknown | + + + | Marital Status | Single | + + + | Presybeterian Affiliation | Unknown | + + + | Race | Unknown | + + + | Ethnic Group | Unknown | + + + Author + + + | Author | [facility] | | | and [place] | + + + | Organization | [facility] | | [...] | | | | | [place] [address] | | + + + + + | Robson Min | ECON | Unknown | | + + + + + | Isabella Whitehead | ECON | Unknown | | + + + + + | Seven Neff | ECON | Unknown | | + + + + + Care Team Providers + +------+ + | Care Oss Architect Name | Role | Phone | + +------+ + | Juanito Avery PCP | | + +------+ + Encounter Details +--------+ + + + + | Date | Type | Department | Care Team | Description | +--------+ + + + + | 09/22/ | Transcribed | [facility] | Mary Malin, ANGELITA | | | 2019 | Orders | MED CTR RESPIRATORY | | | | | | THERAPY [address] | | | | | | [place], | | | | | | [place] [address] | | | | | | [phone] | | | +--------+ + + + [...] [place] | | | | | | [address] | | | | | | | | +--------+---------+ + + + | 11/05/ | Office | Neurology | Tariq, | | | 2019 | Visit | | [address] | | | | | [address] [place], | | | | | | [place] [address] | | | | | | [phone] | | | | | | | | +--------+---------+ + + + documented as of this encounter Visit Diagnoses Not on filedocumented in this encounter Additional Health Concerns + + + + | Infection | Noted Time | Resolved Time | + + + + | Rule out Respiratory Infection | 06/21/2019 8:09 PM | 06/21/2019 10:35 PM | | | PST | PST | + + + + documented as of this encounter"
--- OUTSIDE RECORDS SUMMARY | ~2019-09-02 | XMS | Encounter Summary ---
Demographics + + + | Address | [address] | | | [place] [address] | + + + | Home Phone [...] | | | | | [place] [address] | | + + + + + Care Team Providers + +------+ + | Care Coroner/Medical Examiner Name | Role | Phone | [...] | | | | | Cathryn [place], | | | | | | [place] [address] | | | | | | [phone] | | | | | | | [...] | | + +---------+ + + | [facility]PART[facility] OF | | | | | RADIOLOGY | | | | + +---------+ + + documented in this encounter Visit Diagnoses Not on filedocumented in this encounter"
--- OUTSIDE RECORDS SUMMARY | ~2019-09-02 | XMS | Encounter Summary ---
Demographics + + + | Address | [address] | | | [place] [address] | + + + | Home Phone [...] | | | | | [place] [address] | | + + + + + | Robson Min | ECON | Unknown | | + + + + + | Isabella Whitehead | ECON | Unknown | | + + + + + | Seven Neff | ECON | Unknown | | + + + + + Care Team Providers + +------+ + | Care Home Health Billing Specialist Name | Role | Phone | + +------+ + | Juanito Avery | PCP | | + +------+ + Reason for Visit + + + | Reason | Comments | + + + | Follow-up | | + + + Follow Up (Routine) + +--------+ + + + + | Status | Reason | Specialty | Diagnoses / | Referred By | Referred To | | | | | Procedures | Contact | Contact | + +--------+ + + + + | Authorized | | Pulmonary | Diagnoses | Bennie | Harjinder, | | | | Disease / | COPD, | Juanito Lamar | MD Navdeep | | | | Pulmonology | moderate | [address] | | | | | ([facility]) | Rivka Hanna | [place], | | | | | Procedures | [place], | [place] [address] | | | | | F[address] | [place] [address] | Phone: | | | | | DARRICK GRANDE | Phone: | [phone] | | | | | 07/12/19 | [phone] | Fax: | | | | | | Fax: | [phone] | | | | | | [phone] | | + +--------+ + + + + Encounter Details +--------+---------+ + + + | Date | Type | Department | Care Team | Description | +--------+---------+ + + + | 07/26/ | Office | [facility] | Navdeep Grande, | Alveolar | | 2020 | Visit | PULMONARY [address] | MD [address] | hypoventilation | | | | [place], | [place], [place] | (Primary Dx); COPD, | | | | [place] [address] | [address] | frequent | | | | [phone] | | exacerbations (HCC); | | | | | | COPD, moderate | | | | | | (HCC) | +--------+---------+ + + + Social [...] + + + | Blood Pressure | 124/68 | 07/27/2019 9:58 AM | | | | | PDT | | + + + + + | Pulse | 76 | 07/27/2019 9:58 AM | | | | | PDT | | + + + + + | Temperature | - | - | | + + + + + | Respiratory Rate | - | - | | + + + + + | Oxygen Saturation | 96% | 07/27/2019 9:58 AM | RA | | | | PDT | | + + + + + | Inhaled Oxygen | - | - | | | Concentration | | | | + + + + + | Weight | 107.7 kg (237 lb 7 | 07/27/2019 9:58 AM | | | | oz) | PDT | | + + + + + | Height | 165.1 cm (5' 5") | 07/27/2019 9:58 AM | | | | | PDT | | + + + + + | Body Mass Index | 39.51 | 07/27/2019 9:58 AM | | | | | PDT [...] + + documented as of this encounter Patient Instructions Patient Instructions Navdeep Grande MD - 07/27/2019 10:00 AM PDTPlease increase oxygen at night to 3 LPM. Call if you note change in symptoms. Interim Guidance for Preventing the Spread of Coronavirus Disease 2019 (COVID-19) in Homes and Residential Communities Update: June 24, 2019 (This guidance provides clarification regarding evaluation for home isolation and a new sec tion with information regarding preventative steps for household members, intimate partners, and caregivers in a nonhealthcare setting of a person with symptomatic, laboratory-confirme d COVID-19.) This interim guidance is based on what is currently known about the epidemiology of COVID-1 9 and the transmission of other viral respiratory diseases. CDC will update this interim nils dance as needed and as additional information becomes available. Coronaviruses are a large family of viruses, some causing illness in people and others that circulate among animals, including camels, cats, and bats. Rarely, animal coronaviruses can infect people exposed to infected animals, and then spread among people, as has been seen w ith MERS-CoV and SARS-CoV, and likely now with SARS-CoV-2, the virus that causes COVID-19. T his interim guidance may help prevent this virus from spreading among people in their homes and in other residential communities. Prevention steps for People with confirmed or suspected COVID-19 (including persons under investigation) who do not need to be hospitalized and People with confirmed COVID-19 who were hospitalized and determined to be medically stable to go home Your healthcare provider and public health staff will evaluate whether you can be cared for at home. If it is determined that you do not need to be hospitalized and can be isolated at home, you will be monitored by staff from your local or state health department. You should follow the prevention steps below until a healthcare provider or local or state health depa rtment says you can return to your normal activities. Stay home except to get medical care You should restrict activities outside your home, except for getting medical care. Do not g o to work, school, or public areas. Avoid using public transportation, ride-sharing, or taxi s. Separate yourself from other people and animals in your home People: As much as possible, you should stay in a specific room and away from other people in your home. Also, you should use a separate bathroom, if available. Animals: You should restrict contact with pets and other animals while you are sick with CO VID-19, just like you would around other people. Although there have not been reports of pet s or other animals becoming sick with COVID-19, it is still recommended that people sick wit h COVID-19 limit contact with animals until more information is known about the virus. When possible, have another member of your household care for your animals while you are sick. If you are sick with COVID-19, avoid contact with your pet, including petting, snuggling, bein g kissed or licked, and sharing food. If you must care for your pet or be around animals whi le you are sick, wash your hands before and after you interact with pets and wear a facemask . Call ahead before visiting your doctor If you have a medical appointment, call the healthcare provider and tell them that you have or may have COVID-19. This will help the healthcare provider s office take steps to keep other people from getting infected or exposed. Wear a facemask You should wear a facemask when you are around other people (e.g., sharing a room or vehicl e) or pets and before you enter a healthcare provider s office. If you are not able to wea r a facemask (for example, because it causes trouble breathing), then people who live with y ou should not stay in the same room with you, or they should wear a facemask if they enter y our room. Cover your coughs and sneezes Cover your mouth and nose with a tissue when you cough or sneeze. Throw used tissues in a l ined trash can; immediately wash your hands with soap and water for at least 20 seconds or c lean your hands with an alcohol-based hand line assembler aircraft that contains 60 to 95% alcohol, coveri ng all surfaces of your hands and rubbing them together until they feel dry. Soap and water should be used preferentially if hands are visibly dirty. Clean your hands often Wash your hands often with soap and water for at least 20 seconds or clean your hands with an alcohol-based hand line assembler aircraft that contains 60 to 95% alcohol, covering all surfaces of yo ur hands and rubbing them together until they feel dry. Soap and water should be used prefer entially if hands are visibly dirty. Avoid touching your eyes, nose, and mouth with unwashed hands. Avoid sharing personal household items You should not share dishes, drinking glasses, cups, eating utensils, towels, or bedding wi th other people or pets in your home. After using these items, they should be washed thoroug hly with soap and water. Clean all high-touch surfaces everyday High touch surfaces include counters, tabletops, doorknobs, bathroom fixtures, toilets, maycol davina, keyboards, tablets, and bedside tables. Also, clean any surfaces that may have blood, s tool, or body fluids on them. Use a household cleaning spray or wipe, according to the label instructions. Labels contain instructions for safe and effective use of the cleaning produc t including precautions you should take when applying the product, such as wearing gloves an d making sure you have good ventilation during use of the product. Monitor your symptoms Seek prompt medical attention if your illness is worsening (e.g., difficulty breathing). Be fore seeking care, call your healthcare provider and tell them that you have, or are being e valuated for, COVID-19. Put on a facemask before you enter the facility. These steps will he lp the healthcare provider s office to keep other people in the office or waiting room fro m getting infected or exposed. Ask your healthcare provider to call the local health depart ent at [phone]. Persons who are placed under active monitoring or facilitated self-pinky toring should follow instructions provided by their local health department or occupational health professionals, as appropriate. If you have a medical emergency and need to call 911, notify the dispatch personnel that yo u have, or are being evaluated for COVID-19. If possible, put on a facemask before emergency medical services arrive. Discontinuing home isolation Patients with confirmed COVID-19 should remain under home isolation precautions until the r isk of secondary transmission to others is thought to be low. The decision to discontinue ho me isolation precautions should be made on a [id number] basis, in consultation with health care providers and state and local health departments. As of the current time, this require s confirmation negative results from both throat and nasopharyngeal swabs on two consecutive collections at least 24 hours apart. Recommended precautions for household members, intimate partners, and caregivers in a nonhe althcare setting1 of A patient with symptomatic laboratory-confirmed COVID-19 or A patient under investigation Household members, intimate partners, and caregivers in a nonhealthcare setting may have cl ose contact2 with a person with symptomatic, laboratory-confirmed COVID-19 or a person under investigation. Close contacts should monitor their health; they should call their healthcar e provider right away if they develop symptoms suggestive of COVID-19 (e.g., fever, cough, s hortness of breath) Close contacts should also follow these recommendations: ? Stay home unless otherwise directed by the local health department. ? Make sure that you understand and can help the patient follow their healthcare provider s instructions for medication(s) and care. You should help the patient with basic needs in the home and provide support for getting groceries, prescriptions, and other personal needs. ? Monitor the patient s symptoms. If the patient is getting sicker, call his or her [facility] provider and tell them that the patient has laboratory-confirmed COVID-19. This will h elp the healthcare provider s office take steps to keep other people in the office or wait ing room from getting infected. Ask the healthcare provider to call the local or [facility] department for additional guidance. If the patient has a medical emergency and you need to call 911, notify the dispatch personnel that the patient has, or is being evaluated for COV ID-19. ? Household members should stay in another room or be from the patient as much as possible. Household members should use a separate bedroom and bathroom, if available. ? Prohibit visitors who do not have an essential need to be in the home. ? Household members should care for any pets in the home. Do not handle pets or other anima ls while sick. For more information, see COVID-19 and Animals. ? Make sure that shared spaces in the home have good air flow, such as by an air conditione r or an opened window, weather permitting. ? Perform hand hygiene frequently. Wash your hands often with soap and water for at least 2 0 seconds or use an alcohol-based hand line assembler aircraft that contains 60 to 95% alcohol, covering a ll surfaces of your hands and rubbing them together until they feel dry. Soap and water shou ld be used preferentially if hands are visibly dirty. ? Avoid touching your eyes, nose, and mouth with unwashed hands. ? You and the patient should wear a facemask if you are in the same room. ? Wear a disposable facemask and gloves when you touch or have contact with the patient s blood, stool, or body fluids, such as saliva, sputum, nasal mucus, vomit, urine. o Throw out disposable facemasks and gloves after using them. Do not reuse. o When removing personal protective equipment, first remove and dispose of gloves. Then, im mediately clean your hands with soap and water or alcohol-based hand line assembler aircraft. Next, remove and dispose of facemask, and immediately clean your hands again with soap and water or alco hol-based hand line assembler aircraft. ? Avoid sharing household items with the patient. You should not share dishes, drinking gla sses, cups, eating utensils, towels, bedding, or other items. After the patient uses these i tems, you should wash them thoroughly (see below Wash laundry thoroughly ). ? Clean all high-touch surfaces, such as counters, tabletops, doorknobs, bathroom fix tures, toilets, phones, keyboards, tablets, and bedside tables, every day. Also, clean any s urfaces that may have blood, stool, or body fluids on them. o Use a household cleaning spray or wipe, according to the label instructions. Labels conta in instructions for safe and effective use of the cleaning product including precautions you should take when applying the product, such as wearing gloves and making sure you have good ventilation during use of the product. ? Wash laundry thoroughly. o Immediately remove and wash clothes or bedding that have blood, stool, or body fluids on them. o Wear disposable gloves while handling soiled items and keep soiled items away from your b marjan. Clean your hands (with soap and water or an alcohol-based hand line assembler aircraft) immediately a fter removing your gloves. o Read and follow directions on labels of laundry or clothing items and detergent. In gener al, using a normal laundry detergent according to washing machine instructions and dry thoro ughly using the warmest temperatures recommended on the clothing label. ? Place all used disposable gloves, facemasks, and other contaminated items in a lined cont ainer before disposing of them with other household waste. Clean your hands (with soap and w ater or an alcohol-based hand line assembler aircraft) immediately after handling these items. Soap and wa ter should be used preferentially if hands are visibly dirty. ? Discuss any additional questions with your state or local health department or healthcare provider. For more helpful tips visit our Coronavirus site Stay Informed [facility] of Health and Histology [facility]ide [place] Department of Public Health [facility] Department of Public Health and Human Services [facility] documented in this encounter Progress Notes Navdeep Grande MD - 07/27/2019 10:00 AM PDTFormatting of this note might be different f rom the original. Pulmonary Follow Up 07/27/2019 HPI Kait Min is a 49 y.o. female patient of Juanito Avery here today for follow up of moderate COPD. The last pulmonary clinic visit was on 01/25/2019. Since their last appointment they feel li ke their breathing issues have been stable. It does appear that Ms. Min was hospitalized initially at [facility] and subs equently at [facility] in early June. Her hospitalization at [facility] appears to been complicated by respiratory failure with hypercapnia of likely multifactoria l origin. The patient is currently on a daily regimen of Advair and Spiriva for their COPD. They do feel like this medication regimen is/are controlling their symptoms. Currently she is using their short acting bronchodilator, ProAir, 1 times a day. Currently the patient is able to walk 1 mile at their own pace on level ground before devel oping dyspnea. They are not exercising regularly. Their typical exercise consists of minimal walking. Kait are not enrolled in cardiac/pulmonary rehabilitation. They have not comple sriram pulmonary rehabilitation in the past. Kait does cough chronically and does not produce mucous. They have not had hemoptysis sin ce our last appointment. She has been evaluated for nocturnal oxygen. They currently are using nocturnal oxygen. Hannah harmon is currently on 1 LPM at night while sleeping. Previously Ms. Min had been advised by Thong Walker to wear supplemental oxygen at 5 L a minute while sleeping. They have not reported recent symptoms of nasal congestion, runny nose or post nasal drip. The patient have not received this year's influenza vaccination. They are not up to date w ith their Pneumovax and Prevnar 13. Smoke one PPD. Past Medical History Past Medical History: Diagnosis Date Abnormal chest CT Most likely postoperative decortication changes Acid reflux disease Angina pectoris ([facility]) Arrhythmia Bipolar 1 disorder ([facility]) CHRONIC TENSION HEADACHE Classical migraine without mention of intractable migraine Diabetes mellitus, type 2 ([facility]) Empyema lung ([facility]) 2006 right GI bleeding Hypercholesterolemia Hypertension Hypothyroidism IBS (irritable bowel syndrome) Knee pain Lymphedema Myocardial infarction ([facility]) Nausea and vomiting Nocturia Obesity Panic anxiety syndrome Pneumonia Pyoderma gangreosum-LE RA (rheumatoid arthritis) ([facility]) Followed by Dr. Becerra Rheumologist in [place] Reflux esophagitis Restless leg syndrome Urinary hesitancy Vitamin D deficiency Wrist pain Social History: She reports that she has been smoking cigarettes. She started smoking about 36 years ago. S he has a 20.00 pack-year smoking history. She has never used smokeless tobacco. She reports current alcohol use. She reports that she does not use [...] Breath., Disp: 1 Inhaler, Rfl: 11 aspirin 325 mg EC tablet, Take 325 mg by mouth Daily as needed for Pain., Disp: , Rfl: atorvaSTATin (LIPITOR) 20 mg tablet, Take 20 mg by mouth nightly., Disp: , Rfl: azaTHIOprine (IMURAN) 50 mg tablet, Take 100 mg by mouth nightly. Take 50 mg by mouth in the morning and 100 mg nightly., Disp: , Rfl: buprenorphine (BUTRANS) 20 mcg/hr patch, Place 1 patch onto the skin Once a week., Dis p: , Rfl: cloNIDine (CATAPRES) 0.3 mg/[address], [address] 1 patch onto the skin Once a week., Dis p: , Rfl: Continuous Blood Gluc Sensor (FREESTYLE HUAN 14 DAY SENSOR) [facility], , Disp: , Rfl: diclofenac (VOLTAREN) 1% GEL, Apply 2 g topically 3 times daily. feet, Disp: , Rfl: DOK 100 MG tablet, Take 100 mg by mouth 2 times daily., Disp: , Rfl: DULoxetine (CYMBALTA) [address] capsule, Take 30 mg by mouth Daily., Disp: , Rfl: ergocalciferol (VITAMIN D-2) 50,000 units capsule, Take 50,000 Units by mouth Once a w ho-chunk. Wednesdays., Disp: , Rfl: insulin glargine (BASAGLAR KWIKPEN) 100 units/mL injection (pen), Inject 10 Units unde r the skin every morning., Disp: , Rfl: levothyroxine (SYNTHROID) 300 mcg tablet, Take 300 mcg by mouth every morning (before breakfast)., Disp: , Rfl: lubiprostone (AMITIZA) 24 mcg capsule, Take 24 mcg by mouth every morning., Disp: , Rf l: magnesium oxide (MAG-OX) 400 mg tablet, Take 1 tablet by mouth Daily., Disp: , Rfl: metFORMIN (GLUCOPHAGE) 500 mg tablet, Take 500 mg by mouth 2 times daily (with breakfa st & dinner)., Disp: , Rfl: metoprolol succinate (TOPROL-XL) 50 mg 24 hr tablet, Take 1 tablet by mouth Daily., Di sp: 30 tablet, Rfl: 2 omeprazole (PRILOSEC) 20 mg capsule, Take 20 mg by mouth Daily., Disp: , Rfl: pregabalin (LYRICA) 150 MG capsule, Take 150 mg by mouth every morning. Take 150 mg by mouth in the morning and 300 mg in the evening., Disp: , Rfl: SITagliptin (JANUVIA) 100 mg tablet, Take 100 mg by mouth Daily., Disp: , Rfl: sulfaSALAzine (AZULFIDINE) 500 MG EC tablet, Take 1,000 mg by mouth 2 times daily., Di sp: , Rfl: tiotropium (SPIRIVA RESPIMAT) 2.5 mcg/puff inhaler, Inhale 2 puffs into the lungs Gisell y., Disp: , Rfl: torsemide (DEMADEX) 20 mg tablet, Take 20 mg by mouth Daily., Disp: , Rfl: UNIFINE PENTIPS 31G X 8 MM, , Disp: , Rfl: verapamil (VERELAN) 240 mg SR capsule, Take 480 mg by mouth nightly., Disp: , Rfl: ziprasidone (GEODON) 80 MG capsule, Take 80 mg by mouth nightly., Disp: , Rfl: Immunizations: Immunization History Administered Date(s) Administered INFLUENZA PF 18 Y OR >,TRIVALENT RECOMBINANT 02/03/2012, 02/17/2013, 01/17/2014 INFLUENZA PF QUAD(PED/ADOL/ADULT),PSKT or VIAL 02/15/2015, 02/17/2016 INFLUENZA PF TRIVALENT(PED/ADOL/ADULT), PSKT 03/07/2009, 02/18/2010, 01/17/2014, 2013 INFLUENZA QUADR W/PRES (PED/ADOL/ADULT) MULTIDOSE 01/27/2017, 02/10/2018 INFLUENZA TRIV W/PRES(PED/ADOL/ADULT),MULTIDOSE 02/04/2011, 01/10/2015 INFLUENZA, [id number], UNSPECIFIED 03/09/2009 INFLUENZA, UNSPECIFIED FORMULATION 04/27/2000, 02/04/2011, 02/03/2012, 01/10/2013, 11/0 04/2012, 01/10/2015 PNEUMOCOCCAL CONJUGATE 13-VALENT (PCV13) 03/19/2013, 04/24/2014 PNEUMOCOCCAL POLYSACCHARIDE 23-VALENT (PPSV23) 04/04/2009, 03/22/2013, 01/10/2015 TDAP, (ADOL/ADULT) 08/29/2011 Objective BP 124/68 | Pulse 76 | Ht 1.651 m (5' 5") | Wt 107.7 kg (237 lb 7 oz) | SpO2 96% Commen t: RA | BMI 39.51 kg/m Physical Exam Constitutional: She is oriented [...] no rhonchi. She has no rales. Musculoskeletal: General: No edema. Lymphadenopathy: She has no cervical adenopathy. Neurological: She is alert and oriented to person, place, and time. Gait normal. Skin: Skin is warm and intact. No cyanosis. Nails show no clubbing. Psychiatric: Affect normal. Data: Discharge summary from [facility] dated 06/23/2019 was reviewed. Assessment 1. Frequent exacerbations of COPD previously treated with Daliresp though the medicatio n is not currently covered by her insurance. It appears the patient had a mild exacerbation of COPD in early June. 2. COPD moderate. Since her last clinic appointment it appears that Spiriva has been ad ded to Ms. Min's Advair. She is rarely using Pro air. 3. Alveolar hypoventilation arterial blood gas performed during the day on 09/22/2018 ángela wed a pH of 7.42, PCO2 of 41 and a PO2 of 146 on supplemental oxygen at 2.5 L/min. Given the lack of daytime hypercapnia use of PAP was not recommended. The patient did have a sleep study that showed significant nocturnal hypoxemia requiring supplemental oxygen at 5 L/min while sleeping. Ms. Min is concerned that she has worsening hypercapnia related to hyperoxia. It seems r elatively unlikely on oxygen at 5 L/min. I would however like to gradually increase the pat ient's supplemental oxygen at night while sleeping and assess for change in her symptoms. 4. Tobacco dependence currently smoking a pack of cigarettes a day. Total duration of the patient's clinic appointment was in excess of 30 minutes. Greater th an 50% of the time was spent discussing the role of supplemental oxygen in worsening hyperca pnia and management of COPD. Plan 1. The patient will increase her supplemental oxygen at night to 3 L/min. 2. Ms. Min will monitor for symptoms of grogginess/decreased level consciousness upon aw akening. 3. Smoking cessation/reduction strongly encouraged. 4. Pulmonary clinic follow-up appointment to assess the status of the patient's symptoms i n 2 months time. CC: Juanito Avery Tdocumented in this encounter [...] [place] | | | | | | [address] | | | | | | | | +--------+---------+ + + + | 11/05/ | Office | Neurology | Tariq, | | | 2019 | Visit | | ANGELA Venegas [address] | | | [address] [place], | | | | | | [place] [address] | | | | | | [phone] | | | | | | | | +--------+---------+ + + + documented as of this encounter Visit Diagnoses + + | Diagnosis | + + | Alveolar hypoventilation - Primary Other dyspnea and respiratory abnormality | + + | COPD, frequent exacerbations (HCC) Chronic airway obstruction, not elsewhere | | classified | + + | COPD, moderate (HCC) Chronic airway obstruction, not elsewhere classified | + + documented in this encounter
--- OUTSIDE RECORDS SUMMARY | ~2019-09-02 | XMS | Encounter Summary ---
Demographics + + + | Address | [address] | | | [place] [address] | + + + | Home Phone [...] + + + | Author | [facility] | | | and [place] | + + + | Organization | [facility] | | [...] | | | | | [place] [address] | | + + + + + | Robson Min | ECON | Unknown | | + + + + + | Isabella Whitehead | ECON | Unknown | | + + + + + | Seven Neff | ECON | Unknown | | + + + + + Care Team Providers + +------+ + | Care County Engineer Name | Role | Phone | [...] | | | Pulmonology | (chronic | [address] | [address] | | | | | obstructive | [address] | [place], | | | | | pulmonary | [place] | [place] [address] | | | | | disease) | [phone] | Phone: | | | | | ([facility]) | [place] | [phone] | | | | | Procedures | [address] | Fax: | | | | | F/U APPT DR | Phone: | [phone] | | | | | DARRICK JOHNATHAN | [phone] | | | | | | 11/19/17 | | | +--------+--------+ + + + + Encounter Details +--------+---------+ + + + | Date | Type | Department | Care Team | Description | +--------+---------+ + + + | 12/10/ | Office | [facility] | Navdeep [place], | Alveolar | | 2018 | Visit | PULMONARY [address] | MD [address] | hypoventilation | | | | Selah Cavalier, | [place] | (Primary Dx); COPD, | | | | [place] [address] | [address] | mild ([facility]); | | | | [phone] | | Hypoxemia; JESUSITA and | | [...] need to be calibrated. [facility] will adjust the settings. That person [...] irritation from your mask Date Last Reviewed: 05/20/201619998908-5078 [employer]. [address] [place] [address]. All righ ts reserved. This information is [...] 50,000 Units by mouth Once a w reno-sparks., Disp: , Rfl: fluticasone-salmeterol (ADVAIR DISKUS) 250-50 [...] [place] | | | | | | [address] | | | | | | | | +--------+---------+ + + + | 11/05/ | Office | Neurology | Tariq, | | | 2019 | Visit | | [address] | | | | | | [address] [facility], | | | | | | [place] [address] | | | | | | [phone] | | | | | | | [...]
--- OUTSIDE RECORDS SUMMARY | ~2019-09-02 | XMS | Encounter Summary ---
Demographics + + + | Address | [address] | | | [place] [address] | + + + | Home Phone [...] | | | | | [place] [address] | | + + + + + | Robson Min | ECON | Unknown | | + + + + + | Isabella Whitehead | ECON | Unknown | | + + + + + | Seven Neff | ECON | Unknown | | + + + + + Care Team Providers + +------+ + | Care Certified Hyperbaric Technician Name | Role | Phone | [...] Radiology | Dizziness | DO Laine | [facility] | | | | | Procedures | [address] | | | | | ECHO | [place] | [place] | | | | | Complete | [place] | [place] | | | | | | [place] | [address] | | | | | | [address] | Phone: | | | | | | Phone: | [phone] | | | | | | [phone] | Fax: | | | | | | Fax: | [phone] | | | | | | [phone] | | +--------+--------+ + + + + [...] + +--------+ + + + + | Pending | | Cardiology | Diagnoses | Bryon, | Lynne, | | Review | | | | TIMOTHY Carcamo | DO Laine | | | | | Atrioventric | [address] | [address] | | | | | tasha pollack, | Rivka Hanna | DR ARMAS | | | | | first degree | [place], | [place] | | | | | Procedures | [place] | [address] Phone: | | | | | consult | [address] | [phone] | | | | | | Phone: | Fax: | | | | | | [phone] | [phone] | | | | | | Fax: | | | | | | | [phone] | | + +--------+ + + + + Encounter Details +--------+---------+ + + + | Date | Type | Department | Care Team | Description | +--------+---------+ + + + | 01/03/ | Office | [facility] | Laine Batista DO | Atrioventricular | | 2019 | Visit | CARDIOLOGY [place] | [address] | block (Primary Dx); | | | | [address] | [place], [place] | Dizziness; | | | | [place], [place] | [address] | Palpitations; | | | | [address] | | Hypertension, | | | | [phone] | | unspecified type; | | | [...] Batista DO - 01/03/2019 1:00 PM PDT [facility] Cardiology Cardiology Consult Note Reason for [...] Acid reflux disease Angina pectoris ([facility]) Arrhythmia Bipolar 1 disorder ([facility]) CHRONIC TENSION HEADACHE Classical migraine without mention of intractable migraine Diabetes mellitus, type 2 ([facility]) Empyema lung ([facility]) 2006 right GI bleeding Hypercholesterolemia Hypertension Hypothyroidism IBS (irritable bowel syndrome) Knee pain Lymphedema Myocardial infarction ([facility]) Nausea and vomiting Nocturia Obesity Panic anxiety syndrome Pneumonia Pyoderma gangreosum-LE RA (rheumatoid arthritis) ([facility]) Followed by Dr. Becerra Rheumologist in [place] Reflux esophagitis Restless leg syndrome Urinary [...] Once a week. Continuous Blood Gluc Sensor ([email or web address] HUAN 14 DAY SENSOR) [facility] [DISCONTINUED] ergocalciferol (VITAMIN D-2) 50,000 units capsule [...] mouth 2 times daily. Respiratory Therapy Supplies [facility] Portable oxygen concentrator to provide O2 at [...] [place] | | | | | | [address] | | | | | | | | +--------+---------+ + + + | 11/05/ | Office | Neurology | Tariq, | | | 2019 | Visit | | [address] | | | | | | [address] [place], | | | | | | [place] [address] | | | | | | [phone] | | | | | | | [...] | | | | | by [facility] [place] Read Only, | | | | | | [facility] ([id number]), | | | | | | editor news Anupam Sanz | | | | | | ([phone]) on 01/03/2019 | | | | | [...]
--- OUTSIDE RECORDS SUMMARY | ~2019-09-02 | XMS | Encounter Summary ---
Demographics + + + | Address | [address] | | | [place] [address] | + + + | Home Phone [...] | | | | | [place] [address] | | + + + + + | Robson Min | ECON | Unknown | | + + + + + | Isabella Whitehead | ECON | Unknown | | + + + + + | Seven Neff | ECON | Unknown | | + + + + + Care Team Providers + +------+ + | Care Promotions Director Name | Role | Phone | [...] | MED CTR EXTERNAL | MD [address] | | | | | IMAGING [address] | [address] | | | | | [address] | [place] [address] | | | | | [place] [address] | | | | | | [phone] | | | +--------+ + + + [...] [place] | | | | | | [address] | | | | | | | | +--------+---------+ + + + | 11/05/ | Office | Neurology | Tariq, | | | 2019 | Visit | | [address] | | | | | | [address] [place], | | | | | | [place] [address] | | | | | | [phone] | | | | | | | | +--------+---------+ + + + documented as of this encounter Procedures + +--------+ + + + | Procedure Name | Priori | Date/Time | Associated Diagnosis | Comments | | | ty | | | | + +--------+ + + + | XR CHEST 1 VIEW | Routin | 04/18/2019 | | Results for this | | | e | 12:00 AM | | procedure are in the | | | | PST | | results section. | + +--------+ + + + documented in this encounter Results XR Chest 1 Vw (04/18/2019 12:00 AM PST) + + | Specimen [...]
--- OUTSIDE RECORDS SUMMARY | ~2019-09-02 | XMS | Encounter Summary ---
Demographics + + + | Address | [address] | | | [place] [address] | + + + | Home Phone [...] | | | | | [place] [address] | | + + + + + | Robson Min | ECON | Unknown | | + + + + + | Isabella Whitehead | ECON | Unknown | | + + + + + | Seven Neff | ECON | Unknown | | + + + + + Care Team Providers + +------+ + | Care Gaming Floor Supervisor Name | Role | Phone | + +------+ + | Bart Ba DO | PCP | | + +------+ + Encounter Details +--------+ + + + + | Date | Type | Department | Care Team | Description | +--------+ + + + + | 05/23/ | Orders Only | [facility] | Lu Almazan, | Alveolar | | 2015 | | PULMONARY [address] | RN | hypoventilation | | | | [place], | | | | | | [place] [address] | | | | | | [phone] | | | +--------+ + + + [...] [place] | | | | | | [address] | | | | | | | | +--------+---------+ + + + | 11/05/ | Office | Neurology | Tariq, | | | 2019 | Visit | | [address] | | | | | | [address] [facility], | | | | | | [place] [address] | | | | | | [phone] | | | | | | | | +--------+---------+ + + + documented as of this encounter Visit Diagnoses + + | Diagnosis | + + | Alveolar hypoventilation Other dyspnea and respiratory abnormality | + + documented in this encounter"
--- OUTSIDE RECORDS SUMMARY | ~2019-09-02 | XMS | Encounter Summary ---
Demographics + + + | Address | [address] | | | [place] [address] | + + + | Home Phone [...] | | | | | [place] [address] | | + + + + + Care Team Providers + +------+ + | Care Hr Analyst Name | Role | Phone | [...] as of this encounter Progress Notes Interface, Mandrel Puller In - 03/06/2006 5:10 AM [facility] [place] [facility] [place], [place] [address] or September 23, 1999 Renan Bright MD [address] [place] [address] RE: CARLINE MIN MR #: [id number] Dear Dr. Bright: I saw your patient, [...] more and will be interviewed by our heart coordinator. We will obtain some x-rays and labs to further screen her for candidacy. PLAN 1. The patient to meet with heart coordinator today regarding IL-1 RA study. 2. Labs today to include CBC, liver function tests, C-reactive protein and erythrocyte sedimentation rate. 3. X-rays of the hands today. 4. 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 I would appreciate it if those results could be faxed to me at this clinic: [phone]. 5. She will be made a follow-up appointment either with me or as part of the above-mentioned study. Again, thank you for allowing me to participate in this Ms. Min's care and please call if you wish to discuss her case further. Sincerely, Ameya Steen M.D. Rheumatology Fellow TU / PHIL [id number] / [id number] / [id number] / [id number] signed by Interface, Mandrel Puller In at 03/06/2006 5:10 AM PSTdocume nted in this encounter Plan of Treatment Not on filedocumented as of this encounter Visit Diagnoses Not on filedocumented in this encounter"
--- OUTSIDE RECORDS SUMMARY | ~2019-09-02 | XMS | Encounter Summary ---
Demographics + + + | Address | [address] | | | [place] [address] | + + + | Home Phone [...] | | | | | [place] [address] | | + + + + + | Robson Min | ECON | Unknown | | + + + + + | Isabella Whitehead | ECON | Unknown | | + + + + + | Seven Neff | ECON | Unknown | | + + + + + Care Team Providers + +------+ + | Care Fish Smoker Name | Role | Phone | + +------+ + | Bart Ba DO | PCP | | + +------+ + Encounter Details +--------+ + + + + | Date | Type | Department | Care Team | Description | +--------+ + + + + | 08/20/ | Imaging | [facility] | Provider, | | | 2018 | Exam | MED CTR EXTERNAL | MD [address] | | | | | IMAGING [address] | [address] | | | | | [address] | [place] [address] | | | | | [place] [address] | | | | | | [phone] | | | +--------+ + + + [...] [place] | | | | | | [address] | | | | | | | | +--------+---------+ + + + | 11/05/ | Office | Neurology | Tariq, | | | 2019 | Visit | | [address] | | | | | | [address] [place], | | | | | | [place] [address] | | | | | | [phone] | | | | | | | [...]
--- OUTSIDE RECORDS SUMMARY | ~2019-09-02 | XMS | Encounter Summary ---
Demographics + + + | Address | [address] | | | [place] [address] | + + + | Home Phone [...] Author + + + | Author | [facility] | + + + | Organization | [facility] | + + + | Address | Unknown | + + + | Phone | Unavailable | + + + Support + + + + + | Name | Relationship | Address | Phone | + + + + + | Scot Johnson | ECON | [address] | | | | | [place] [address] | | + + + + + Care Team Providers + +------+ + | Care Director Of Cardiology Service Line Name | Role | Phone | + [...] Clinic | | | | | | [facility], [address] | | | | | | [place], [place] | | | | | | [address] | | | | | | [phone] | | | +--------+ + + + [...] | + + + + + | [facility] | [address] | [place] [address] | | | PATHOLOGY | [address] | | | + + + + + | [facility] | [address] | [place] [address] | | | PATHOLOGY | [address] [...] + + + | [facility] | [address] | [place] [address] | | | LAB-MICRO | | | | + + + + + documented in this encounter Visit Diagnoses Not on filedocumented in this encounter"
--- OUTSIDE RECORDS SUMMARY | ~2019-09-02 | XMS | Encounter Summary ---
Demographics + + + | Address | [address] | | | [place] [address] | + + + | Home Phone [...] | | | | | [place] [address] | | + + + + + Care Team Providers + +------+ + | Care Shirt Line Operator Name | Role | Phone | + +------+ + PCP | Unavailable | + +------+ + Encounter Details +--------+ + + + + | Date | Type | Department | Care Team | Description | +--------+ + + + + | 10/23/ | Respiratory | | Other, Faculty | | | 2006 | Therapy | | [phone] | | +--------+ + + + + [...] | | GAS/HUMIDIT | STANDBY. Yo Beckford, JUNIOR GRAPHIC DESIGNER | | | | | Y |Yo Beckford, JUNIOR GRAPHIC DESIGNER | | | | + + + [...] [facility] | [address] | [place], [place] | | | DIAGNOSTICS - | [address] | [address] | | | PULMONARY FUNCTION | | | | + + + + + documented in this encounter Visit Diagnoses Not on filedocumented in this encounter"
--- OUTSIDE RECORDS SUMMARY | ~2019-09-02 | XMS | Encounter Summary ---
Demographics + + + | Address | [address] | | | [place] [address] | + + + | Home Phone | | + + + | Preferred Language | Unknown | + + + | Marital Status | Single | + + + | Caodaism Affiliation | Unknown | + + + | Race | Unknown | + + + | Ethnic Group | Unknown | + + + Author + + + | Author | [facility] | | | and [place] | + + + | Organization | [facility] | | [...] | | | | | [place] [address] | | + + + + + | Robson Escobar | ECON | Unknown | | + + + + + | Isabella Whitehead | ECON | Unknown | | + + + + + | Seven Neff | ECON | Unknown | | + + + + + Care Team Providers + +------+ + | Care Chief Controller Station Name | Role | Phone | + +------+ + | Herman Ba DO | PCP | | + +------+ + Encounter Details +--------+ + + + + | Date | Type | Department | Care Team | Description | +--------+ + + + + | 09/05/ | Hospital | [facility] | Betsey Connolly DO | Metabolic alkalosis; | | 2015 - | Encounter | [facility] | [address] | Diabetes mellitus, | | | | CLINICAL DECISION | [place] [address] | type 2 (HCC); Drug | | 09/11/ | | [address] | [phone] | overdose, sequela; | | 2014 | | [place], [place] | | Hypokalemia; | | | | [address] | | Hypophosphatemia; | | | | [phone] | | Metabolic | | | | | | encephalopathy; | | | | | | Methamphetamine | | | | | | abuse; Obesity (BMI | | | | | | 30.0-34.9); RA | | | | | | (rheumatoid | | | | | | arthritis) ([facility]); | | | | | | Sinus tachycardia; | | | | | | Seizure ([facility]); Acute | | | | | | respiratory | | | | | | alkalosis; Metabolic | | | | | | acidosis; Acute | | | | | | respiratory failure | | | | | | ([facility]); Hypoxia; | | | | | | Obtundation; Bipolar | | | | | | 2 disorder ([facility]); | | | | | | Current [...] Summaries by Barrington Pride MD at 09/13/14 5044 Author: Barrington Pride MD Service: (none) Author Type: Physician Filed: 09/13/14 1706 Date of Service: 09/13/141644 Status: Signed Electromechanical Technologist: Barrington Pride MD (Physician) [facility] Service: Hospitalist Discharge Summary Date of Admission: [...] improved Code Status: Prior Follow up: Herman Ba, [address] [place] [address] f/u post hospitalization and WBC to resolution [...] MG per tablet Refills: 0 Generic drug: dcbozepzvp-fpfkqrq-vusewxek fluticasone-salmeterol 250-50 MCG/DOSE QTY: 2 each Refills: [...] 0 Commonly known as: LOPRESSOR 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 You may get the following medications from [...] | 0 | 10/08/19 | | | gjicjuvzwf-ibrauoi-t | every 6 hours as | | [...] 09/11/141850 Date of Service: 09/11/141843 Status: Signed Electromechanical Technologist: Lesa Rdz RN (Registered Nurse) Discharge instructions reviewed the patient, she is awaiting her mother to arrive from [facility] to drive her home. IJ line removed, dressing is clean, dry and intact. Will pass on to shift mechanic RN that discharge is completed and that pt only needs to be assisted to her [employer] vehicle when her mother arrives.Lesa Rdz RN onver james Transaction, Provider Unknown - 09/11/2014 4:37 PM PDT Progress Notes by Lesa Rdz RN at 09/11/14 1637 Author: Lesa Rdz RN Service: (none) Author Type: Registered Nurse Filed: 09/11/14 1638 Date of Service: 09/11/14 1637 Status: Signed Electromechanical Technologist: Lesa Rdz RN (Registered Nurse) Pt cleared for discharge by CRU.Lesa Rdz RN nuradha Botello MS CCC-INSTRUCTIONAL MATERIAL DIRECTOR - 09/11/2014 1:34 PM PDTFormatting of this note might be differen t from the original. Therapy Progress Note by Anuradha Mendez MA CCC-INSTRUCTIONAL MATERIAL DIRECTOR at 09/11/14 0893 Author: Anuradha Mendez MA CCC-INSTRUCTIONAL MATERIAL DIRECTOR Service: (none) Author Type: Speech and Language Pathologist Filed: 09/11/14 9048 Date of Service: 09/11/141333 Status: Signed Electromechanical Technologist: Anuradha Mendez MA CCC-INSTRUCTIONAL MATERIAL DIRECTOR (Speech and Language Pathologist) 09/11/14 1320 Swallowing Assessment Eval Swallowing Treatment Yes Initial [...] RPH Service: Pharmacy Author Type: Pharmacist Filed: 09/11/14 1329 Date of Service: 09/11/141328 Status: Signed Electromechanical Technologist: Nik Duarte RPH (Pharmacist) Vancomycin day 2, est crcl 104.3ml/min, awaiting trough level at 0930 09/12 onver james Transaction, Provider Unknown - 09/11/2014 1:16 PM PDT Case Management by EMA De La Vega at 09/11/14 1316 Author: EMA De La Vega Service: (none) Author Type: Centrifugal Extractor Operator Filed: 09/11/14 1320 Date of Service: 09/11/14 1316 Status: Signed Electromechanical Technologist: EMA De La Vega (Centrifugal Extractor Operator) Per MD. Pride, "Pt is Medically Cleared [...] Date of Service: 09/10/14 100 Status: Signed Electromechanical Technologist: Krystle Sparks RPH (Pharmacist) Clinical Pharmacy Note: Pharmacy Dosing Vancomycin; Day 1 Kait Escobar 44 y.o. female Height: 170.2 cm Weight: 94 kg WBC: 12.44 CREATININE: 0.83 (09/10/14 0555) Estimated creatinine clearance - 102.9 mL/min INDICATION: [...] Progress Notes by Jeffy Rahman DO at 09/10/14 0855 Author: Jeffy Rahman DO Service: Hospitalist Author Type: Physician Filed: 09/10/14900 Date of Service: 09/10/14854 Status: Signed Electromechanical Technologist: Jeffy Rahman DO (Physician) PROGRESS NOTE 09/10/2014 [...] C) (09/11 739) BP: (124-178)/(75-103) 145/86 mmHg (09/11 739) Heart Rate: [73-93] 78 (09/11 739) Resp: [16-24] 16 (09/11 739) SpO2: [92 %-96 %] 95 % (09/11 739) Weight: [94 kg (207 lb 3.7 oz)] [...] by Juan A Marcano RD at 09/09/14 1433 Author: Juan A Marcano RD Service: (none) Author Type: Registered Dietitian Filed: 09/09/14 143 Date of Service: 09/09/141438 Status: Signed Electromechanical Technologist: Juan A Marcano RD (Registered Dietitian) 09/09/14 1434 Subjective Timepoint Follow up Pt c/o None [...] / Meals Diabetic maintenance, dental soft per INSTRUCTIONAL MATERIAL DIRECTOR. Micronutrient Intake Mineral / Element Intake Magnesium [...] up date 09/15/[address] Jeffy Bruce DO - 09/09/2014 12:06 PM PDTFormatting of this note might be different from the deisi ginal. Progress Notes by Jeffy Rahman DO at 09/09/14 1206 Author: Jeffy Rahman DO Service: Hospitalist Author Type: Physician Filed: 09/09/14 1876 Date of Service: 09/09/141205 Status: Signed Electromechanical Technologist: Jeffy Rahman DO (Physician) PROGRESS NOTE 09/09/2014 [...] 97.5 kg (214 lb 15.2 oz) (09/09 023) Physical exam: NAD AOx3 HENT - MMM, [...] Progress Notes by Devi Vora RN at 09/09/14 1498 Author: Devi Vora RN Service: (none) Author Type: Registered Nurse Filed: 09/09/14 9481 Date of Service: 09/09/14 437 Status: Signed Electromechanical Technologist: Devi Vora RN (Registered Nurse) Pt is alert, oriented x4. She appears withdrawn, sitter at bedside, medication taken withou t difficulty. Pt able to walk to RR with minimal assist, she is able to make needs known, VV S. Devi Vora onver james Transaction, Provider Unknown - 09/08/2014 1:32 PM PDT Nurse Progress Note by Karina aMyer RN at 09/08/14 2070 Author: Karina Mayer RN Service: (none) Author Type: Registered Nurse Filed: 09/08/14 4751 Date of Service: 09/08/14 628 Status: Signed Electromechanical Technologist: Karina Mayer RN (Registered Nurse) Report given to MARTHA Deleon. Will transfer pt at this time. onver james Transaction, Provider Unknown - 09/08/2014 1:26 PM PDT Nurse Progress Note by Karina Mayer RN at 09/08/14 1326 Author: Karina Mayer RN Service: (none) Author Type: Registered Nurse Filed: 09/08/14 1327 Date of Service: 09/08/14 1326 Status: Signed Electromechanical Technologist: Karina Mayer RN (Registered Nurse) Attempted to start peripheral IV. Attempt unsuccessful. onver james Transaction, Provider Unknown - 09/08/2014 1:04 PM PDT Case Management by EMA Verma at 09/08/14 1304 Author: EMA Verma Service: (none) Author Type: Centrifugal Extractor Operator Filed: 09/08/14 1311 Date of Service: 09/08/14 1304 Status: Signed Electromechanical Technologist: EMA Verma (Centrifugal Extractor Operator) 09/08/14 1303 Discharge Planning Evaluation Admitting Diagnosis OD Readmission [...] Prescription Plan Yes Name of Pharmacy [facility] [place] Anticipated Disposition Facility Type Home Met with: [...] I explaine d process for CRU to [facility] and determine disposition. Patient states that her mother can stay with her 09/11 after d/c which is what might be required by CRU as a contract. Pt has a son in [place] and a sister in [place]. Await CRU to [facility]. Patient's PCP is: HERMAN BA Patient's insurance:[facility] Coverage concerns: Medication coverage/concerns: Lisandra'augusto Bedside Delivery: Community resources utilized / needed: Assistance in transportation: Mother can transport Identification of any specific education / training: Barriers to Discharge / Alternative housing needed: Anticipated DCP: CRU to evalAngelita Diehl Laurie Esteban MS CCC-INSTRUCTIONAL MATERIAL DIRECTOR - 09/08/2014 10:45 AM PDTFormatting of this note might be different fr om the original. Therapy Progress Note by Laurie Steen MS CCC-INSTRUCTIONAL MATERIAL DIRECTOR at 09/08/14 1045 Author: Laurie Steen MS CCC-INSTRUCTIONAL MATERIAL DIRECTOR Service: (none) Author Type: Speech Therapist Filed: 09/08/14 1115 Date of Service: 09/08/141044 Status: Signed Electromechanical Technologist: Laurie Steen MS CCC-INSTRUCTIONAL MATERIAL DIRECTOR (Speech Therapist) 09/08/141044 Swallowing Assessment Eval Swallowing Evaluation Yes Initial [...] Swallow strategies;Diet tolerance monitoring;Patient/Family education Dysphagia Goals Aed Trainer Goals Safe/efficient oral intake Pt will have safe/efficient oral intake Regular diet;New/revised goal;With min cues Short Term Goals Tolerate diet Pt will tolerate diet Dental soft;New/revised goal;With min supervision omie Brown ARNP - 09/08/2014 6:44 AM PDTFormatting of this note might be different from the o riginal. Progress Notes by DEEJAY Astorga at 09/08/1444 Author: DEEJAY Astorga Service: Disk Operator Author Type: Nurse Practitioner Filed: 09/08/14 1248 Date of Service: 09/08/14643 Status: Signed Electromechanical Technologist: DEEJAY Astorga (Nurse Practitioner) [facility] Service: Disk Operator Progress Note [facility] Escobar 44 [facility] [...] by family members to the ED in [place] on 09/04. 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 Glucose was [...] 0108 09/05/14 1740 INR 1.3 1.3 IMAGING X-ray Chest [...] acid, but again, level normal. Discussed with hides soaker at [facility]. Could possibly be d/t methamphetamine intoxication. Unknown [...] (none) Author Type: Registered Nurse Filed: 09/08/14 0028 Date of Service: 09/08/1422 Status: Signed Electromechanical Technologist: Beth Huang RN (Registered Nurse) RN talking with pt during midnight reassessment found pt to have increased RR and anxious.R N talked with pt about slow deep breathing, RN talked with pt and asked if she knew why she was in the hospital, pt stated that she remembers taking "a lot" of hydrocodone for a drug overdose, however doesn't remember how much. service architect notified. 1mg ativan ordered Q4 for anxiety at this time. Will continue to monitor. Beth Huang RN onver james Transaction, Provider Unknown - 09/07/2014 9:14 PM PDT Nurse Progress Note by Beth Huang RN at 09/07/142113 Author: Beth Huang RN Service: (none) Author Type: Registered Nurse Filed: 09/07/142114 Date of Service: 09/07/142113 Status: Signed Electromechanical Technologist: Beth Huang RN (Registered Nurse) Per day Shift RN Pt is NPO d/t coughing and choking on water post extubation, RN stated pt is ok to have ice chips but no oral medications at this time. Will continue to monitor. Shaniqua Huang RN onver james Transaction, Provider Unknown - 09/07/2014 2:04 PM PDT Case Management by EMA Verma at 09/07/143 Author: EMA Verma Service: (none) Author Type: Centrifugal Extractor Operator Filed: 09/07/141404 Date of Service: 09/07/141403 Status: Signed Electromechanical Technologist: EMA Verma (Centrifugal Extractor Operator) Placed t/c to pt's son Robson [phone] . He is on his way into the hospital and will b e here in about 1 hour. I will try to meet with him to obtain info about pt. He was not ab le to talk on the phone as he was driving and cell range was not good. Tyler Alvarez MD - 09/07/2014 1:49 PM PDTFormatting of this note might be different from th e original. Progress Notes by Tyler Edwards MD at 09/07/14 4179 Author: Tyler Edwards MD Service: Nephrology Author Type: Physician Filed: 09/07/14 1351 Date of Service: 09/07/141348 Status: Signed Electromechanical Technologist: Tyler Edwards MD (Physician) Noted Normalization of Cr and electrolytes. Bp is controlled and ACID BASE IS improved. Pt was not examined. Will Sign off at this time . Should be there any concerns , please call with questions or reconsult. lisa, Casper Cox MD - 09/07/2014 1:38 PM PDT Progress Notes by Casper Rollins MD at 09/07/14 Author: Casper Rollins MD Service: Disk Operator Author Type: Disk Operator Filed: 09/07/14 0487 Date of Service: 09/07/141337 Status: Signed Electromechanical Technologist: Casper Rollins MD (Physician) [facility] Service: Disk Operator Progress Note Kait Escobar 44 [facility] [...] by family members to the ED in [place] on 09/04. 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 Glucose was [...] 0322 09/07/14 0105 09/06/14 1223 09/06/14 0845 09/06/1410709/05/14 1740 NA -- 142 -- -- 151* [...] Lab 09/06/1410709/05/14 1740 INR 1.3 1.3 IMAGING cxr stable, [...] acid, but again, level normal. Discussed with hides soaker at [facility]. Could possibly be d/t methamphetamine intoxication. Unknown [...] 1432 Date of Service: 09/06/141420 Status: Signed Electromechanical Technologist: Mary Mclean RN (Registered Nurse) Patient seen today by assistant professor of chemistry for evaluation due to low Pablo. Today's [...] Dietitian Filed: 09/06/14 1117 Date of Service: 09/06/14 111 Status: Signed Electromechanical Technologist: Angela Saenz RD, CD (Registered Dietitian) 09/06/14 [...] Estimated Energy Needs Total Energy Estimated Needs 6539-3445 kcal/day Method for Estimating Needs 22-25 kcal/kg [...] Justina Reyes RN at 09/06/14419 Author: Justina Reyes RN Service: (none) Author Type: Registered Nurse Filed: 09/06/14420 Date of Service: 09/06/14419 Status: Signed Electromechanical Technologist: Justina Reyes RN (Registered Nurse) Unable to complete pt admission documentation d/t pt family not present and pt is intubated . Thank you. onroberto ramirez Transaction, Provider Unknown - 09/06/2014 2:08 AM PDT Progress Notes by Nelson Mayer RPH at 09/06/14207 Author: Nelson Mayer RPH Service: (none) Author Type: Pharmacist Filed: 09/06/14207 Date of Service: 09/06/14207 Status: Signed Electromechanical Technologist: Nelson Mayer RPH (Pharmacist) Note ccl 91.7ml/min meds reviewed Pharmacy will follow [facility]dc 0208 docume nted in this encounter Plan of Treatment +--------+---------+ + + + | Date | Type | Specialty | Care Team | Description | +--------+---------+ + + + | 09/27/ | Office | Pulmonology | Navdeep Grande, | | | 2019 | Visit | | MD Cely GORE | | | | | | [place] | | | | | | [address] | | | | | | | | +--------+---------+ + + + | 11/05/ | Office | Neurology | Tariq, | | | 2019 | Visit | | [address] | | | | | | [address] [facility], | | | | | | [place] [address] | | | | | | [phone] | | | | | | | [...] | | | Fingerstick | performed at [facility];[address] | | LAB | | | | [address] [place];[place] | | | | | | [address] | | | | + + + [...] | | | Fingerstick | performed at [facility];[address] | | LAB | | | | [address];[place], [place] | | | | | | [address] | | | | + + + [...] | | | Fingerstick | performed at [facility];[address] | | LAB | | | | [address];[place] | | | | | | [address] | | | | + + + [...] EXTERNAL | | | | performed at [facility];[address] | | LAB | | | | [address];[place] | | | | | | [address] | | | | + + + [...] | | | | | | at [facility];[address] [place] [address] | | | | | | [facility];[place] [address] | | | | + + + [...] K/uL | LAB | | | | [facility], [address] | | | | | | [place] | | | | | | [address] | | | | + + + + + + | Red Blood | 3.52 (L)Comment: Testing | 3.70 - 5.10 | EXTERNAL | | | Cells | performed at [facility], [address] | M/uL | LAB | | | Counted | [address] [place], | | | | | | [place] [address] | | | | + + + + + + | Hemoglobin | 11.4Comment: Testing | 11.3 - 15.5 | EXTERNAL | | | | performed at [facility], [address] | g/dL | LAB | | | | [address], | | | | | | [place] [address] | | | | + + + + + + | Hematocrit, | 34.9Comment: Testing | 34.0 - 46.0 % | EXTERNAL | | | POC | performed at [facility], [address] | | LAB | | | | [address], | | | | | | [place] [address] | | | | + + + + + + | MCV | 99.0Comment: Testing | 80.0 - 100.0 fl | EXTERNAL | | | | performed at [facility], [address] | | LAB | | | | [address], | | | | | | [place] [address] | | | | + + + + + + | MCH | 32.4Comment: Testing | 27.0 - 34.0 pg | EXTERNAL | | | | performed at [facility], [address] | | LAB | | | | [address], | | | | | | [place] [address] | | | | + + + + + + | MCHC | 32.7Comment: Testing | 32.0 - 35.5 | EXTERNAL | | | | performed at [facility], [address] | g/dL | LAB | | | | [address], | | | | | | [place] [address] | | | | + + + + + + | RDW-CV | 55.6 (H)Comment: Testing | 37 - 53 fl | EXTERNAL | | | | performed at [facility], [address] | | LAB | | | | [address], | | | | | | [place] [address] | | | | + + + + + + | Platelet | 250Comment: Testing | 150 - 400 K/uL | EXTERNAL | | | Count | performed at [facility], [address] | | LAB | | | Plasma | [address], | | | | | | [place] [address] | | | | + + + + + + | MPV | 8.8Comment: Testing | fl | EXTERNAL | | | | performed at [facility], [address] | | LAB | | | | [address], | | | | | | [place] [address] | | | | + + + + + + | Differentia | AUTOMATEDComment: | | EXTERNAL | | | l Type | Testing performed at | | LAB | | | | [facility], [address] | | | | | | [place] | | | | | | [address] | | | | + + + + + + | % Segmented | 65.20Comment: Testing | % | EXTERNAL | | | | performed at [facility], [address] | | LAB | | | Neutrophils | [address], | | | | | | [place] [address] | | | | + + + + + + | % | 19.01Comment: Testing | % | EXTERNAL | | | Lymphocytes | performed at [facility], [address] | | LAB | | | | [address], | | | | | | [place] [address] | | | | + + + + + + | % Monocytes | 13.64Comment: Testing | % | EXTERNAL | | | | performed at [facility], [address] | | LAB | | | | [address], | | | | | | [place] [address] | | | | + + + + + + | % | 1.60Comment: Testing | % | EXTERNAL | | | Eosinophils | performed at [facility], [address] | | LAB | | | | [address], | | | | | | [place] [address] | | | | + + + + + + | % Basophils | 0.55Comment: Testing | % | EXTERNAL | | | | performed at [facility], [address] | | LAB | | | | [address], | | | | | | [place] [address] | | | | + + + + + + | Absolute | 7.60 (H)Comment: Testing | 1.90 - 7.40 | EXTERNAL | | | Segmented | performed at [facility], [address] | K/uL | LAB | | | Neutrophils | [address], | | | | | | [place] [address] | | | | + + + + + + | Absolute | 2.22Comment: Testing | 1.00 - 3.90 | EXTERNAL | | | Lymphocytes | performed at [facility], [address] | K/uL | LAB | | | | [address], | | | | | | [place] [address] | | | | + + + + + + | Absolute | 1.59 (H)Comment: Testing | 0.00 - 0.80 | EXTERNAL | | | Monocytes | performed at [facility], [address] | K/uL | LAB | | | | [address], | | | | | | [place] [address] | | | | + + + + + + | Absolute | 0.19Comment: Testing | 0.00 - 0.50 | EXTERNAL | | | Eosinophils | performed at [facility], [address] | K/uL | LAB | | | | [address], | | | | | | [place] [address] | | | | + + + + + + | Absolute | 0.07Comment: Testing | 0.00 - 0.10 | EXTERNAL | | | Basophils | performed at [facility], [address] | K/uL | LAB | | | | [address], | | | | | | [place] [address] | | | | + + + [...] EXTERNAL | | | | performed at [facility];[address] | | LAB | | | | [address];[place], [place] | | | | | | [address] | | | | + + + [...] EXTERNAL | | | | performed at [facility];[address] | | LAB | | | | [address];[place], [place] | | | | | | [address] | | | | + + + [...] EXTERNAL | | | | performed at [facility];[address] | mmol/L | LAB | | | | [address];[place] | | | | | | [address] | | | | + + + + + + | K | 3.8Comment: Testing | 3.5 - 4.9 | EXTERNAL | | | | performed at [facility];[address] | mmol/L | LAB | | | | [address];[place] | | | | | | [address] | | | | + + + + + + | Cl | 101Comment: Testing | 99 - 109 mmol/L | EXTERNAL | | | | performed at [facility];[address] | | LAB | | | | [address];[place] | | | | | | [address] | | | | + + + + + + | CO2 | 29Comment: Testing | 23 - 32 mmol/L | EXTERNAL | | | | performed at [facility];[address] | | LAB | | | | [address];[place] | | | | | | [address] | | | | + + + + + + | Anion Gap | 11Comment: Testing | 5 - 20 mmol/L | EXTERNAL | | | | performed at [facility];[address] | | LAB | | | | [address];[place] | | | | | | [address] | | | | + + + + + + | Glucose, | 184 (H)Comment: Testing | 65 - 99 mg/dL | EXTERNAL | | | Fasting | performed at [facility];[address] | | LAB | | | | [address];[place] | | | | | | [address] | | | | + + + + + + | BUN | 10Comment: Testing | 8 - 25 mg/dL | EXTERNAL | | | | performed at [facility];[address] | | LAB | | | | [address];[place] | | | | | | [address] | | | | + + + + + + | Creatinine | 0.82Comment: Testing | 0.50 - 1.00 | EXTERNAL | | | | performed at [facility];[address] | mg/dL | LAB | | | | [address];[place] | | | | | | [address] | | | | + + + + + + | BUN/Creatin | 12Comment: Testing | | EXTERNAL | | | ine Ratio | performed at [facility];[address] | | LAB | | | | [address];[place] | | | | | | [address] | | | | + + + + + + | Calcium | 9.1Comment: Testing | 8.5 - 10.5 | EXTERNAL | | | | performed at [facility];[address] | mg/dL | LAB | | | | [address];[place] | | | | | | [address] | | | | + + + [...] | | | | | | at [facility];[address] | [address];[place] [address] | | | | + + + [...] | | | Fingerstick | performed at [facility];[address] | | LAB | | | | [address];[place] | | | | | | [address] | | | | + + + [...] | | | Fingerstick | performed at [facility];[address] | | LAB | | | | [address];[place], [place] | | | | | | [address] | | | | + + [...] | | | | | [place] [address] | | | | + + + + + + | Clarity | CLEARComment: Testing | | EXTERNAL | | | | performed at [facility], [address] | | LAB | | | | [address], | | | | | | [place] [address] | | | | + + + + + + | Specific | 1.007Comment: Testing | 1.002 - 1.030 | EXTERNAL | | | [place], | performed at [facility], [address] | | LAB | | | Urine | [address], | | | | | | [place] [address] | | | | + + + + + + | Leukocyte | SMALL (A)Comment: | | EXTERNAL | | | Esterase, | Testing performed at | | LAB | | | Urine | [facility], [address] [facility] [address] | | | | | | [place] | | | | | | [address] | | | | + + + + + + | Nitrite, | NEGATIVEComment: Testing | | EXTERNAL | | | Urine | performed at [facility], [address] | | LAB | | | | [address], | | | | | | [place] [address] | | | | + + + + + + | Urobilinoge | 0.2Comment: Testing | mg/dL | EXTERNAL | | | n, Urine | performed at [facility], [address] | | LAB | | | | [address], | | | | | | [place] [address] | | | | + + + + + + | Protein, | NEGATIVEComment: Testing | mg/dL | EXTERNAL | | | Urine | performed at [facility], [address] | | LAB | | | | [address], | | | | | | [place] [address] | | | | + + + + + + | pH, Urine | 7.0Comment: Testing | 5.0 - 8.0 | EXTERNAL | | | | performed at [facility], [address] | | LAB | | | | [address], | | | | | | [place] [address] | | | | + + + + + + | Blood, | MODERATE (A)Comment: | | EXTERNAL | | | Urine | Testing performed at | | LAB | | | | [facility], [address] | | | | | | [place] | | | | | | [address] | | | | + + + + + + | Ketones | NEGATIVEComment: Testing | mg/dL | EXTERNAL | | | | performed at [facility], [address] | | LAB | | | | [address], | | | | | | [place] [address] | | | | + + + + + + | Bilirubin, | NEGATIVEComment: Testing | | EXTERNAL | | | Urine | performed at [facility], [address] | | LAB | | | | [address], | | | | | | [place] [address] | | | | + + + + + + | Glucose, | NEGATIVEComment: Testing | mg/dL | EXTERNAL | | | Urine | performed at [facility], [address] | | LAB | | | | [address], | | | | | | [place] [address] | | | | + + + [...] EXTERNAL | | | | performed at [facility], [address] | | LAB | | | | [address], | | | | | | [place] [address] | | | | + + + + + + | RBC, UA | 1-5Comment: Testing | 0 - 5 /hpf | EXTERNAL | | | | performed at [facility], [address] | | LAB | | | | [address], | | | | | | [place] [address] | | | | + + + + + + | Epithelial | 16-25Comment: Testing | /lpf | EXTERNAL | | | Cells | performed at [facility], [address] | | LAB | | | | [address], | | | | | | [place] [address] | | | | + + + + + + | Bacteria, | 1+ (A)Comment: Testing | | EXTERNAL | | | UA | performed at [facility], [address] | | LAB | | | | [address], | | | | | | [place] [address] | | | | + + + + + + | Urinalysis | LESS THAN 10 ML | | EXTERNAL | | | Comments | SPECIMENComment: CULTURE | | LAB | | | | TO FOLLOWTesting | | | | | | performed at [facility], [address] | | | | | | [address], | | | | | | [place] [address] | | | | + + + [...] GROWTH | | | Testing performed at [facility], | | | [address] [place] [address] | | + + + + +---------+ [...] | | | Fingerstick | [place] [facility] [place] | | LAB | | | | [address];[place] | | | | | | [address] | | | | + + + [...] Jose Hanks Conversion - 12/02/2018 4:36 AM ELIZABETH FIGUEROA CHEST 2 VIEW FRONTAL AND | | [...] AC | | | Testing performed at [facility] [place];[address] | | | [address];[place] [address] CULTURE | | | NO GROWTH | | | Testing performed at [facility], [address], [place], [place] | | | [address] | | + + + + +---------+ [...] AC | | | Testing performed at [facility] [place];[address] | [address];[place] [address] CULTURE | | | NO GROWTH | | | Testing performed at [facility], [address], [place], [place] | | | [address] | | + + + + +---------+ + + | Performing | Address | City/State/Zipcode | Phone Number | | Organization | | | | + +---------+ + + | EXTERNAL LAB | | | | + +---------+ + + External Lab: [facility] (09/10/2014 5:55 AM PDT) + + + + + + | Component | Value | Ref Range | Performed | Pathologist | | | | | At | Signature | + + + + + + | WBC | 12.44 (H)Comment: | 3.80 - 11.00 | EXTERNAL | | | | Testing performed at | K/uL | LAB | | | | [facility], [address] | | | | | | [place] | | | | | | [address] | | | | + + + + + + | Red Blood | 3.66 (L)Comment: Testing | 3.70 - 5.10 | EXTERNAL | | | Cells | performed at [facility], [address] | M/uL | LAB | | | Counted | [address], | | | | | | [place] [address] | | | | + + + + + + | Hemoglobin | 11.8Comment: Testing | 11.3 - 15.5 | EXTERNAL | | | | performed at [facility], [address] | g/dL | LAB | | | | [address], | | | | | | [place] [address] | | | | + + + + + + | Hematocrit, | 36.2Comment: Testing | 34.0 - 46.0 % | EXTERNAL | | | POC | performed at [facility], [address] | | LAB | | | | [address], | | | | | | [place] [address] | | | | + + + + + + | MCV | 98.8Comment: Testing | 80.0 - 100.0 fl | EXTERNAL | | | | performed at [facility], [address] | | LAB | | | | [address], | | | | | | [place] [address] | | | | + + + + + + | MCH | 32.1Comment: Testing | 27.0 - 34.0 pg | EXTERNAL | | | | performed at [facility], [address] | | LAB | | | | [address], | | | | | | [place] [address] | | | | + + + + + + | MCHC | 32.5Comment: Testing | 32.0 - 35.5 | EXTERNAL | | | | performed at [facility], [address] | g/dL | LAB | | | | [address], | | | | | | [place] [address] | | | | + + + + + + | RDW-CV | 53.8 (H)Comment: Testing | 37 - 53 fl | EXTERNAL | | | | performed at [facility], [address] | | LAB | | | | [address], | | | | | | [place] [address] | | | | + + + + + + | Platelet | 267Comment: Testing | 150 - 400 K/uL | EXTERNAL | | | Count | performed at [facility], [address] | | LAB | | | Plasma | [address], | | | | | | [place] [address] | | | | + + + + + + | MPV | 8.2Comment: Testing | fl | EXTERNAL | | | | performed at [facility], [address] | | LAB | | | | [address], | | | | | | [place] [address] | | | | + + + + + + | Differentia | AUTOMATEDComment: | | EXTERNAL | | | l Type | Testing performed at | | LAB | | | | [facility], [address] | | | | | | [place] | | | | | | [address] | | | | + + + + + + | % Segmented | 69.45Comment: Testing | % | EXTERNAL | | | | performed at [facility], [address] | | LAB | | | Neutrophils | [address], | | | | | | [place] [address] | | | | + + + + + + | % | 17.19Comment: Testing | % | EXTERNAL | | | Lymphocytes | performed at [facility], [address] | | LAB | | | [address], | | | | | | [place] [address] | | | | + + + + + + | % Monocytes | 11.54Comment: Testing | % | EXTERNAL | | | | performed at [facility], [address] | | LAB | | | | [address], | | | | | | [place] [address] | | | | + + + + + + | % | 1.49Comment: Testing | % | EXTERNAL | | | Eosinophils | performed at [facility], [address] | | LAB | | | | [address], | | | | | | [place] [address] | | | | + + + + + + | % Basophils | 0.33Comment: Testing | % | EXTERNAL | | | | performed at [facility], [address] | | LAB | | | | [address], | | | | | | [place], [place] [address] | | | | + + + + + + | Absolute | 8.64 (H)Comment: Testing | 1.90 - 7.40 | EXTERNAL | | | Segmented | performed at [facility], [address] | K/uL | LAB | | | Neutrophils | [address], | | | | | | [place], [place] [address] | | | | + + + + + + | Absolute | 2.14Comment: Testing | 1.00 - 3.90 | EXTERNAL | | | Lymphocytes | performed at [facility], [address] | K/uL | LAB | | | | [address], | | | | | | [place] [address] | | | | + + + + + + | Absolute | 1.44 (H)Comment: Testing | 0.00 - 0.80 | EXTERNAL | | | Monocytes | performed at [facility], [address] | K/uL | LAB | | | | [address], | | | | | | [place] [address] | | | | + + + + + + | Absolute | 0.19Comment: Testing | 0.00 - 0.50 | EXTERNAL | | | Eosinophils | performed at [facility], [address] | K/uL | LAB | | | | [address], | | | | | | [place] [address] | | | | + + + + + + | Absolute | 0.04Comment: Testing | 0.00 - 0.10 | EXTERNAL | | | Basophils | performed at [facility], [address] | K/uL | LAB | | | | [address], | | | | | | [place] [address] | | | | + + + [...] | | | | | [place] [address] | | | | + + + [...] EXTERNAL | | | | performed at [facility], [address] | | LAB | | | | [address], | | | | | | [place] [address] | | | | + + + [...] | | | | | [place] [address] | | | | + + + + + + | K | 3.8Comment: Testing | 3.5 - 4.9 | EXTERNAL | | | | performed at [facility], [address] | mmol/L | LAB | | | | [address], | | | | | | [place] [address] | | | | + + + + + + | Cl | 99Comment: Testing | 99 - 109 mmol/L | EXTERNAL | | | | performed at [facility], [address] | | LAB | | | | [address], | | | | | | [place] [address] | | | | + + + + + + | CO2 | 30Comment: Testing | 23 - 32 mmol/L | EXTERNAL | | | | performed at [facility], [address] | | LAB | | | | [address], | | | | | | [place] [address] | | | | + + + + + + | Anion Gap | 7Comment: Testing | 5 - 20 mmol/L | EXTERNAL | | | | performed at [facility], [address] | | LAB | | | | [address], | | | | | | [place] [address] | | | | + + + + + + | Glucose, | 222 (H)Comment: Testing | 65 - 99 mg/dL | EXTERNAL | | | Fasting | performed at [facility], [address] | | LAB | | | | [address], | | | | | | [place] [address] | | | | + + + + + + | BUN | 12Comment: Testing | 8 - 25 mg/dL | EXTERNAL | | | | performed at [facility], [address] | | LAB | | | | [address], | | | | | | [place] [address] | | | | + + + + + + | Creatinine | 0.83Comment: Testing | 0.50 - 1.00 | EXTERNAL | | | | performed at [facility], [address] | mg/dL | LAB | | | | [address], | | | | | | [place] [address] | | | | + + + + + + | BUN/Creatin | 14Comment: Testing | | EXTERNAL | | | ine Ratio | performed at [facility], [address] | | LAB | | | | [address], | | | | | | [place] [address] | | | | + + + + + + | Calcium | 9.0Comment: Testing | 8.5 - 10.5 | EXTERNAL | | | | performed at [facility], [address] | mg/dL | LAB | | | | [address], | | | | | | [place] [address] | | | | + + + [...] W | | | | | | [address], | | | | | | [place] [address] | | | | + + + [...] | | | Fingerstick | performed at [facility] [place] | | LAB | | | | [address];[place] | | | | | | [address] | | | | + + + [...] | | | Fingerstick | performed at [facility] [place];[address] | | LAB | | | | [address];[place], [place] | | | | | | [address] | | | | + + + [...] | | | Fingerstick | performed at [facility] [place];[facility] | | LAB | | | | [address];[place], [place] | | | | | | [address] | | | | + + + [...] | | | Fingerstick | performed at [facility] [place];[address] | | LAB | | | | [address];[place] | | | | | | [address] | | | | + + + [...] | | | Fingerstick | performed at [facility] [place];[address] | | LAB | | | | [address];[place] | | | | | | [address] | | | | + + + [...] EXTERNAL | | | | performed at [facility], [address] | K/uL | LAB | | | | [address], | | | | | | [place] [address] | | | | + + + + + + | Red Blood | 3.65 (L)Comment: Testing | 3.70 - 5.10 | EXTERNAL | | | Cells | performed at [facility], [address] | M/uL | LAB | | | Counted | [address], | | | | | | [place] [address] | | | | + + + + + + | Hemoglobin | 11.8Comment: Testing | 11.3 - 15.5 | EXTERNAL | | | | performed at [facility], [address] | g/dL | LAB | | | [address], | | | | | | [place] [address] | | | | + + + + + + | Hematocrit, | 36.1Comment: Testing | 34.0 - 46.0 % | EXTERNAL | | | POC | performed at [facility], [address] | | LAB | | | | [address], | | | | | | [place] [address] | | | | + + + + + + | MCV | 98.7Comment: Testing | 80.0 - 100.0 fl | EXTERNAL | | | | performed at [facility], [address] | | LAB | | | | [address], | | | | | | [place] [address] | | | | + + + + + + | MCH | 32.4Comment: Testing | 27.0 - 34.0 pg | EXTERNAL | | | | performed at [facility], [address] | | LAB | | | | [address], | | | | | | [place] [address] | | | | + + + + + + | MCHC | 32.8Comment: Testing | 32.0 - 35.5 | EXTERNAL | | | | performed at [facility], [address] | g/dL | LAB | | | | [address], | | | | | | [place] [address] | | | | + + + + + + | RDW-CV | 53.8 (H)Comment: Testing | 37 - 53 fl | EXTERNAL | | | | performed at [facility], [address] | | LAB | | | | [address], | | | | | | [place] [address] | | | | + + + + + + | Platelet | 280Comment: Testing | 150 - 400 K/uL | EXTERNAL | | | Count | performed at [facility], [address] | | LAB | | | Plasma | [address], | | | | | | [place] [address] | | | | + + + + + + | MPV | 7.8Comment: Testing | fl | EXTERNAL | | | | performed at [facility], [address] | | LAB | | | | [address], | | | | | | [place] [address] | | | | + + + + + + | Differentia | AUTOMATEDComment: | | EXTERNAL | | | l Type | Testing performed at | | LAB | | | | [facility], [address] | | | | | | [place] | | | | | | [address] | | | | + + + + + + | % Segmented | 62.96Comment: Testing | % | EXTERNAL | | | | performed at [facility], [address] | | LAB | | | Neutrophils | [address], | | | | | | [place] [address] | | | | + + + + + + | % | 22.27Comment: Testing | % | EXTERNAL | | | Lymphocytes | performed at [facility], [address] | | LAB | | | | [address], | | | | | | [place] [address] | | | | + + + + + + | % Monocytes | 11.29Comment: Testing | % | EXTERNAL | | | | performed at [facility], [address] | | LAB | | | | [address], | | | | | | [place] [address] | | | | + + + + + + | % | 3.04Comment: Testing | % | EXTERNAL | | | Eosinophils | performed at [facility], [address] | | LAB | | | | [address], | | | | | | [place] [address] | | | | + + + + + + | % Basophils | 0.44Comment: Testing | % | EXTERNAL | | | | performed at [facility], [address] | | LAB | | | | [address], | | | | | | [place] [address] | | | | + + + + + + | Absolute | 6.07Comment: Testing | 1.90 - 7.40 | EXTERNAL | | | Segmented | performed at [facility], [address] | K/uL | LAB | | | Neutrophils | [address], | | | | | | [place] [address] | | | | + + + + + + | Absolute | 2.15Comment: Testing | 1.00 - 3.90 | EXTERNAL | | | Lymphocytes | performed at [facility], [address] | K/uL | LAB | | | | [address], | | | | | | [place] [address] | | | | + + + + + + | Absolute | 1.09 (H)Comment: Testing | 0.00 - 0.80 | EXTERNAL | | | Monocytes | performed at [facility], [address] | K/uL | LAB | | | | [address], | | | | | | [place] [address] | | | | + + + + + + | Absolute | 0.29Comment: Testing | 0.00 - 0.50 | EXTERNAL | | | Eosinophils | performed at [facility], [address] | K/uL | LAB | | | | [address], | | | | | | [place] [address] | | | | + + + + + + | Absolute | 0.04Comment: Testing | 0.00 - 0.10 | EXTERNAL | | | Basophils | performed at [facility], [address] | K/uL | LAB | | | | [address], | | | | | | [place] [address] | | | | + + + [...] EXTERNAL | | | | performed at [facility], [address] | | LAB | | | | [address], | | | | | | [place] [address] | | | | + + + [...] | | | | | [place] [address] | | | | + + + [...] | | | | | [place] [address] | | | | + + + + + + | K | 4.3Comment: Testing | 3.5 - 4.9 | EXTERNAL | | | | performed at [facility], [address] | mmol/L | LAB | | | | [address], | | | | | | [place] [address] | | | | + + + + + + | Cl | 99Comment: Testing | 99 - 109 mmol/L | EXTERNAL | | | | performed at [facility], [address] | | LAB | | | | [address], | | | | | | [place] [address] | | | | + + + + + + | CO2 | 28Comment: Testing | 23 - 32 mmol/L | EXTERNAL | | | | performed at [facility], [address] | | LAB | | | | [address], | | | | | | [place] [address] | | | | + + + + + + | Anion Gap | 10Comment: Testing | 5 - 20 mmol/L | EXTERNAL | | | | performed at [facility], [address] | | LAB | | | | [address], | | | | | | [place] [address] | | | | + + + + + + | Glucose, | 174 (H)Comment: Testing | 65 - 99 mg/dL | EXTERNAL | | | Fasting | performed at [facility], [address] | | LAB | | | | [address], | | | | | | [place] [address] | | | | + + + + + + | BUN | 15Comment: Testing | 8 - 25 mg/dL | EXTERNAL | | | | performed at [facility], [address] | | LAB | | | | [address], | | | | | | [place] [address] | | | | + + + + + + | Creatinine | 0.77Comment: Testing | 0.50 - 1.00 | EXTERNAL | | | | performed at [facility], [address] | mg/dL | LAB | | | | [address], | | | | | | [place] [address] | | | | + + + + + + | BUN/Creatin | 19Comment: Testing | | EXTERNAL | | | ine Ratio | performed at [facility], [address] | | LAB | | | | [address], | | | | | | [place] [address] | | | | + + + + + + | Calcium | 8.9Comment: Testing | 8.5 - 10.5 | EXTERNAL | | | | performed at [facility], [address] | mg/dL | LAB | | | | [address], | | | | | | [place] [address] | | | | + + + [...] | | | | | | at [facility], [address] | | | | | | [address], | | | | | | [place] [address] | | | | + + + [...] | | | Fingerstick | performed at [facility] [place];[address] | | LAB | | | | [address];[place], [place] | | | | | | [address] | | | | + + + [...] | | | Fingerstick | performed at [facility] [place];[address] | | LAB | | | | [address];[place] | | | | | | [address] | | | | + + + [...] EXTERNAL | | | | performed at [facility] [place];[address] | | LAB | | | | [address];[place], [place] | | | | | | [address] | | | | + + + [...] | | | Fingerstick | performed at [facility] [place];[address] | | LAB | | | | [address];[place] | | | | | | [address] | | | | + + + [...] | | | Fingerstick | performed at [facility] [place];[address] | | LAB | | | | [address];[place], [place] | | | | | | [address] | | | | + + + [...] | | | | | [place] [address] | | | | + + + + + + | Red Blood | 3.62 (L)Comment: Testing | 3.70 - 5.10 | EXTERNAL | | | Cells | performed at [facility], [address] | M/uL | LAB | | | Counted | [address], | | | | | | [place] [address] | | | | + + + + + + | Hemoglobin | 11.8Comment: Testing | 11.3 - 15.5 | EXTERNAL | | | | performed at [facility], [address] | g/dL | LAB | | | | [address], | | | | | | [place] [address] | | | | + + + + + + | Hematocrit, | 36.1Comment: Testing | 34.0 - 46.0 % | EXTERNAL | | | POC | performed at [facility], [address] | | LAB | | | | [address], | | | | | | [place] [address] | | | | + + + + + + | MCV | 99.7Comment: Testing | 80.0 - 100.0 fl | EXTERNAL | | | | performed at [facility], [address] | | LAB | | | [address], | | | | | | [place] [address] | | | | + + + + + + | MCH | 32.5Comment: Testing | 27.0 - 34.0 pg | EXTERNAL | | | | performed at [facility], [address] | | LAB | | | | [address], | | | | | | [place] [address] | | | | + + + + + + | MCHC | 32.6Comment: Testing | 32.0 - 35.5 | EXTERNAL | | | | performed at [facility], [address] | g/dL | LAB | | | | [address], | | | | | | [place] [address] | | | | + + + + + + | RDW-CV | 54.7 (H)Comment: Testing | 37 - 53 fl | EXTERNAL | | | | performed at [facility], [address] | | LAB | | | | [address], | | | | | | [place] [address] | | | | + + + + + + | Platelet | 289Comment: Testing | 150 - 400 K/uL | EXTERNAL | | | Count | performed at [facility], [address] | | LAB | | | Plasma | [address], | | | | | | [place] [address] | | | | + + + + + + | MPV | 7.4Comment: Testing | fl | EXTERNAL | | | | performed at [facility], [address] | | LAB | | | | [address], | | | | | | [place] [address] | | | | + + + + + + | Differentia | AUTOMATEDComment: | | EXTERNAL | | | l Type | Testing performed at | | LAB | | | | [facility], [address] | | | | | | [place] | | | | | | [address] | | | | + + + + + + | % Segmented | 53.91Comment: Testing | % | EXTERNAL | | | | performed at [facility], [address] | | LAB | | | Neutrophils | [address], | | | | | | [place] [address] | | | | + + + + + + | % | 26.30Comment: Testing | % | EXTERNAL | | | Lymphocytes | performed at [facility], [address] | | LAB | | | | [address], | | | | | | [place] [address] | | | | + + + + + + | % Monocytes | 15.80Comment: Testing | % | EXTERNAL | | | | performed at [facility], [address] | | LAB | | | | [address], | | | | | | [place] [address] | | | | + + + + + + | % | 3.35Comment: Testing | % | EXTERNAL | | | Eosinophils | performed at [facility], [address] | | LAB | | | | [address], | | | | | | [place] [address] | | | | + + + + + + | % Basophils | 0.64Comment: Testing | % | EXTERNAL | | | | performed at [facility], [address] | | LAB | | | | [address], | | | | | | [place] [address] | | | | + + + + + + | Absolute | 5.40Comment: Testing | 1.90 - 7.40 | EXTERNAL | | | Segmented | performed at [facility], [address] | K/uL | LAB | | | Neutrophils | [address], | | | | | | [place] [address] | | | | + + + + + + | Absolute | 2.63Comment: Testing | 1.00 - 3.90 | EXTERNAL | | | Lymphocytes | performed at [facility], [address] | K/uL | LAB | | | | [address], | | | | | | [place] [address] | | | | + + + + + + | Absolute | 1.58 (H)Comment: Testing | 0.00 - 0.80 | EXTERNAL | | | Monocytes | performed at [facility], [address] | K/uL | LAB | | | | [address], | | | | | | [place] [address] | | | | + + + + + + | Absolute | 0.34Comment: Testing | 0.00 - 0.50 | EXTERNAL | | | Eosinophils | performed at [facility], [address] | K/uL | LAB | | | | [address], | | | | | | [place] [address] | | | | + + + + + + | Absolute | 0.06Comment: Testing | 0.00 - 0.10 | EXTERNAL | | | Basophils | performed at [facility], [address] | [address] | LAB | | | | [address], | | | | | | [place] [address] | | | | + + + [...] | | | | | [place] [address] | | | | + + + [...] EXTERNAL | | | | performed at [facility], [address] | | LAB | | | | [address], | | | | | | [place] [address] | | | | + + + [...] | | | | | [place] [address] | | | | + + + + + + | K | 4.4Comment: Testing | 3.5 - 4.9 | EXTERNAL | | | | performed at [facility], [address] | mmol/L | LAB | | | | [address], | | | | | | [place] [address] | | | | + + + + + + | Cl | 106Comment: Testing | 99 - 109 mmol/L | EXTERNAL | | | | performed at [facility], [address] | | LAB | | | | [address], | | | | | | [place] [address] | | | | + + + + + + | CO2 | 27Comment: Testing | 23 - 32 mmol/L | EXTERNAL | | | | performed at [facility], [address] | | LAB | | | | [address], | | | | | | [place] [address] | | | | + + + + + + | Anion Gap | 10Comment: Testing | 5 - 20 mmol/L | EXTERNAL | | | | performed at [facility], [address] | | LAB | | | | [address], | | | | | | [place] [address] | | | | + + + + + + | Glucose, | 129 (H)Comment: Testing | 65 - 99 mg/dL | EXTERNAL | | | Fasting | performed at [facility], [address] | | LAB | | | | [address], | | | | | | [place] [address] | | | | + + + + + + | BUN | 16Comment: Testing | 8 - 25 mg/dL | EXTERNAL | | | | performed at [facility], [address] | | LAB | | | | [address], | | | | | | [place] [address] | | | | + + + + + + | Creatinine | 0.82Comment: Testing | 0.50 - 1.00 | EXTERNAL | | | | performed at [facility], [address] | mg/dL | LAB | | | | [address], | | | | | | [place] [address] | | | | + + + + + + | BUN/Creatin | 20Comment: Testing | | EXTERNAL | | | ine Ratio | performed at [facility], [address] | | LAB | | | | [address], | | | | | | [place] [address] | | | | + + + + + + | Calcium | 8.9Comment: Testing | 8.5 - 10.5 | EXTERNAL | | | | performed at [facility], [address] | mg/dL | LAB | | | | [address], | | | | | | [place] [address] | | | | + + + [...] | | | | | | [address], | | | | | | [place] [address] | | | | + + + [...] | | | Fingerstick | [place] [facility] [place] | | LAB | | | | [address];[place] | | | | | | [address] | | | | + + + [...] | | | Fingerstick | performed at [facility] [place] | | LAB | | | | [address];[place], [place] | | | | | | [address] | | | | + + + [...] | | | Fingerstick | performed [place] [facility] [place] | | LAB | | | | [address];[place] | | | | | | [address] | | | | + + + [...] | | | Fingerstick | [place] at [facility] [place] | | LAB | | | | [address];[place], [place] | | | | | | [address] | | | | + + + [...] EXTERNAL | | | | performed at [facility] [place] | mmol/L | LAB | | | | Leonel Tariq;[place] | | | | | | [address] | | | | + + + [...] EXTERNAL | | | | performed at [facility] [place];888 | | LAB | | | | Leonel Tariq;[place], [place] | | | | | | [address] | | | | + + + [...] | | | Fingerstick | performed at [facility] [place];8 | | LAB | | | | Leonel Tariq;[place] | | | | | | [address] | | | | + + + [...] | | | Fingerstick | performed at [facility] [place];888 | | LAB | | | | Leonel Tariq;[place], [place] | | | | | | [address] | | | | + + + [...] At | + + + | KAIT ASKEW CHEST 1 VIEW 09/07/2014 6:17 AM HISTORY: [...] | | | Fingerstick | performed at [facility] [place] | | LAB | | | | [address];[place], [place] | | | | | | [address] | | | | + + + [...] | | | Fingerstick | performed at [facility] [place];888 | | LAB | | | | Leonle Tariq;[place], [place] | | | | | | [address] | | | | + + + [...] EXTERNAL | | | | performed at [facility], [address] | K/uL | LAB | | | | [address], | | | | | | [place] [address] | | | | + + + + + + | Red Blood | 3.42 (L)Comment: Testing | 3.70 - 5.10 | EXTERNAL | | | Cells | performed at [facility], [address] | M/uL | LAB | | | Counted | [address], | | | | | | [place] [address] | | | | + + + + + + | Hemoglobin | 11.1 (L)Comment: Testing | 11.3 - 15.5 | EXTERNAL | | | | performed at [facility], [address] | g/dL | LAB | | | | [address], | | | | | | [place] [address] | | | | + + + + + + | Hematocrit, | 33.5 (L)Comment: Testing | 34.0 - 46.0 % | EXTERNAL | | | POC | performed at [facility], [address] | | LAB | | | | [address], | | | | | | [place] [address] | | | | + + + + + + | MCV | 97.9Comment: Testing | 80.0 - 100.0 fl | EXTERNAL | | | | performed at [facility], [address] | | LAB | | | | [address], | | | | | | [place] [address] | | | | + + + + + + | MCH | 32.3Comment: Testing | 27.0 - 34.0 pg | EXTERNAL | | | | performed at [facility], [address] | | LAB | | | | [address], | | | | | | [place] [address] | | | | + + + + + + | MCHC | 33.0Comment: Testing | 32.0 - 35.5 | EXTERNAL | | | | performed at [facility], [address] | g/dL | LAB | | | | [address], | | | | | | [place] [address] | | | | + + + + + + | RDW-CV | 55.6 (H)Comment: Testing | 37 - 53 fl | EXTERNAL | | | | performed at [facility], [address] | | LAB | | | | [address], | | | | | | [place] [address] | | | | + + + + + + | Platelet | 321Comment: Testing | 150 - 400 K/uL | EXTERNAL | | | Count | performed at [facility], [address] | | LAB | | | Plasma | [address], | | | | | | [place] [address] | | | | + + + + + + | MPV | 7.4Comment: Testing | fl | EXTERNAL | | | | performed at [facility], [address] | | LAB | | | | [address], | | | | | | [place] [address] | | | | + + + + + + | Differentia | AUTOMATEDComment: | | EXTERNAL | | | l Type | Testing performed at | | LAB | | | | [facility], [address] | | | | | | [place] | | | | | | [address] | | | | + + + + + + | % Segmented | 51.00Comment: Testing | % | EXTERNAL | | | | performed at [facility], [address] | | LAB | | | Neutrophils | [address], | | | | | | [place] [address] | | | | + + + + + + | % | 30.62Comment: Testing | % | EXTERNAL | | | Lymphocytes | performed at [facility], [address] | | LAB | | | | [address], | | | | | | [place] [address] | | | | + + + + + + | % Monocytes | 16.25Comment: Testing | % | EXTERNAL | | | | performed at [facility], [address] | | LAB | | | | [address], | | | | | | [place] [address] | | | | + + + + + + | % | 1.79Comment: Testing | % | EXTERNAL | | | Eosinophils | performed at [facility], [address] | | LAB | | | | [address], | | | | | | [place] [address] | | | | + + + + + + | % Basophils | 0.34Comment: Testing | % | EXTERNAL | | | | performed at [facility], [address] | | LAB | | | | [address], | | | | | | [place] [address] | | | | + + + + + + | Absolute | 4.68Comment: Testing | 1.90 - 7.40 | EXTERNAL | | | Segmented | performed at [facility], [address] | K/uL | LAB | | | Neutrophils | [address], | | | | | | [place] [address] | | | | + + + + + + | Absolute | 2.81Comment: Testing | 1.00 - 3.90 | EXTERNAL | | | Lymphocytes | performed at [facility], [address] | K/uL | LAB | | | | [address], | | | | | | [place] [address] | | | | + + + + + + | Absolute | 1.49 (H)Comment: Testing | 0.00 - 0.80 | EXTERNAL | | | Monocytes | performed at [facility], [address] | K/uL | LAB | | | | [address], | | | | | | [place] [address] | | | | + + + + + + | Absolute | 0.16Comment: Testing | 0.00 - 0.50 | EXTERNAL | | | Eosinophils | performed at [facility], [address] | K/uL | LAB | | | | [address], | | | | | | [place] [address] | | | | + + + + + + | Absolute | 0.03Comment: Testing | 0.00 - 0.10 | EXTERNAL | | | Basophils | performed at [facility], [address] | K/uL | LAB | | | | [address], | | | | | | [place] [address] | | | | + + + [...] EXTERNAL | | | | performed at [facility], [address] | | LAB | | | | [address], | | | | | | [place] [address] | | | | + + + [...] EXTERNAL | | | | performed at [facility], [address] | | LAB | | | | [address], | | | | | | [place] [address] | | | | + + + [...] | | | | | [place] [address] | | | | + + + + + + | K | 3.9Comment: Testing | 3.5 - 4.9 | EXTERNAL | | | | performed at [facility], [address] | mmol/L | LAB | | | | [address], | | | | | | [place] [address] | | | | + + + + + + | Cl | 114 (H)Comment: Testing | 99 - 109 mmol/L | EXTERNAL | | | | performed at [facility], [address] | | LAB | | | | [address], | | | | | | [place] [address] | | | | + + + + + + | CO2 | 22 (L)Comment: Testing | 23 - 32 mmol/L | EXTERNAL | | | | performed at [facility], [address] | | LAB | | | [address], | | | | | | [place] [address] | | | | + + + + + + | Anion Gap | 10Comment: Testing | 5 - 20 mmol/L | EXTERNAL | | | | performed at [facility], [address] | | LAB | | | | [address], | | | | | | [place] [address] | | | | + + + + + + | Glucose, | 122 (H)Comment: Testing | 65 - 99 mg/dL | EXTERNAL | | | Fasting | performed at [facility], [address] | | LAB | | | | [address], | | | | | | [place] [address] | | | | + + + + + + | BUN | 16Comment: Testing | 8 - 25 mg/dL | EXTERNAL | | | | performed at [facility], [address] | | LAB | | | | [address], | | | | | | [place] [address] | | | | + + + + + + | Creatinine | 0.89Comment: Testing | 0.50 - 1.00 | EXTERNAL | | | | performed at [facility], [address] | mg/dL | LAB | | | | [address], | | | | | | [place] [address] | | | | + + + + + + | BUN/Creatin | 18Comment: Testing | | EXTERNAL | | | ine Ratio | performed at [facility], [address] | | LAB | | | | [address], | | | | | | [place] [address] | | | | + + + + + + | Calcium | 8.7Comment: Testing | 8.5 - 10.5 | EXTERNAL | | | | performed at [facility], [address] | mg/dL | LAB | | | | [address], | | | | | | [place] [address] | | | | + + + [...] | | | | | | at [facility], [address] | | | | | | [address], | | | | | | [place] [address] | | | | + + + [...] | | | Fingerstick | performed at [facility] [place];[address] | | LAB | | | | [address];[place], [place] | | | | | | [address] | | | | + + + [...] | | | Fingerstick | performed at [facility] [place];[facility] | | LAB | | | | Leonel Tariq;[place] | | | | | | [address] | | | | + + + [...] EXTERNAL | | | | performed at [facility] [place];888 | mmol/L | LAB | | | | Leonel Tariq;[place] | | | | | | [address] | | | | + + + [...] | | | Fingerstick | performed at [facility] [place];[address] | | LAB | | | | [...] | | | Fingerstick | performed at [facility] [place];[address] | | LAB | | | | [address];[place], [place] | | | | | | [address] | | | | + + + [...] | | | Fingerstick | performed at [facility] [place];[address] | | LAB | | | | Leonel [address]ari[address];[place] | | | | | | [address] | | | | + + + [...] EXTERNAL | | | | performed at [facility] [place];[address] | mmol/L | LAB | | | | [address];[place], [place] | | | | | | [address] | | | | + + + [...] | | | Fingerstick | performed at [facility] [place];[address] | | LAB | | | | Le[address];[place] | | | | | | [address] | | | | + + + [...] | | | Fingerstick | performed at [facility] [place];[address] | | LAB | | | | [address];[place], [place] | | | | | | [address] | | | | + + + [...] EXTERNAL | | | | performed at [facility] [place];[address] | mmol/L | LAB | | | | [address]ari[address];[place], [place] | | | | | | [address] | | | | + + + [...] | | | Fingerstick | performed at [facility] [place];[address] | | LAB | | | | [address];[place] | | | | | | [address] | | | | + + + [...] | | | Fingerstick | performed at [facility] [place];[address] | | LAB | | | | [address];[place], [place] | | | | | | [address] | | | | + + + [...] | | LAB | | | | [facility], [address] | | | | | | [place] | | | | | | [address] | | | | + + + + + + | Clarity | TURBIDComment: Testing | | EXTERNAL | | | | performed at [facility], [address] | | LAB | | | | [address], | | | | | | [place] [address] | | | | + + + + + + | Specific | 1.026Comment: Testing | 1.002 - 1.030 | EXTERNAL | | | [place], | performed at [facility], [address] | | LAB | | | Urine | [address], | | | | | | [place] [address] | | | | + + + + + + | Leukocyte | NEGATIVEComment: Testing | | EXTERNAL | | | Esterase, | performed at [facility], [address] | | LAB | | | Urine | [address], | | | | | | [place] [address] | | | | + + + + + + | Nitrite, | NEGATIVEComment: Testing | | EXTERNAL | | | Urine | performed at [facility], [address] | | LAB | | | | [address], | | | | | | [place] [address] | | | | + + + + + + | Urobilinoge | 0.2Comment: Testing | mg/dL | EXTERNAL | | | n, Urine | performed at [facility], [address] | | LAB | | | | [address], | | | | | | [place] [address] | | | | + + + + + + | Protein, | 100 (A)Comment: Testing | mg/dL | EXTERNAL | | | Urine | performed at [facility], [address] | | LAB | | | | [address], | | | | | | [place] [address] | | | | + + + + + + | pH, Urine | 5.5Comment: Testing | 5.0 - 8.0 | EXTERNAL | | | | performed at [facility], [address] | | LAB | | | | [address], | | | | | | [place] [address] | | | | + + + + + + | Blood, | NEGATIVEComment: Testing | | EXTERNAL | | | Urine | performed at [facility], [address] | | LAB | | | | [address], | | | | | | [place] [address] | | | | + + + + + + | Ketones | TRACE (A)Comment: | mg/dL | EXTERNAL | | | | Testing performed at | | LAB | | | | [facility], [address] | | | | | | [place] | | | | | | [address] | | | | + + + + + + | Bilirubin, | LARGE (A)Comment: | | EXTERNAL | | | Urine | Testing performed at | | LAB | | | | [facility], [address] | | | | | | [place] | | | | | | [address] | | | | + + + + + + | Glucose, | NEGATIVEComment: Testing | mg/dL | EXTERNAL | | | Urine | performed at [facility], [address] | | LAB | | | | [address], | | | | | | [place] [address] | | | | + + + + + + | WBC, UA | 0-2Comment: Testing | 0 - 5 /hpf | EXTERNAL | | | | performed at [facility], [address] | | LAB | | | | [address], | | | | | | [place] [address] | | | | + + + + + + | RBC, UA | 1-5Comment: Testing | 0 - 5 /hpf | EXTERNAL | | | | performed at [facility], [address] | | LAB | | | [address], | | | | | | [place] [address] | | | | + + + + + + | Epithelial | 0-2Comment: Testing | /lpf | EXTERNAL | | | Cells | performed at [facility], [address] | | LAB | | | | [address], | | | | | | [place] [address] | | | | + + + + + + | Bacteria, | 4+ (A)Comment: Testing | | EXTERNAL | | | UA | performed at [facility], [address] | | LAB | | | | [address], | | | | | | [place] [address] | | | | + + + + + + | Urinalysis | MICRO DONE ON UNSPUN | | EXTERNAL | | | Comments | URINE...< 2.0 ML | | LAB | | | | RECEIVEDComment: Testing | | | | | | performed at [facility], [address] | | | | | | [address], | | | | | | [place] [address] | | | | + + + [...] | | at Ratio | performed at [facility], [address] | | LAB | | | | [address], | | | | | | [place] [address] | | | | + + + [...] | | | Urine | performed at [facility], [address] | | LAB | | | Random | [address], | | | | | | [place] [address] | | | | + + + [...] | | | Urine | performed at [facility], [address] | | LAB | | | | [address], | | | | | | [place] [address] | | | | + + + [...] | | | Urine | performed at [facility], [address] | | LAB | | | | [address], | | | | | | [place] [address] | | | | + + + [...] | | | Urine | performed at [facility], [address] | | LAB | | | | [address], | | | | | | [place] [address] | | | | + + + [...] | | | Fingerstick | performed at [facility] [place];[address] | | LAB | | | | [address];[place], [place] | | | | | | [address] | | | | + + + [...] EXTERNAL | | | | performed at [facility] [place];[facility] | | LAB | | | | [address];[place], [place] | | | | | | [address] | | | | + + + [...] EXTERNAL | | | | performed at [facility] [place];888 | mmol/L | LAB | | | | [address]ari[address];[place] | | | | | | [address] | | | | + + + + + + | K | 3.9Comment: Testing | 3.5 - 4.9 | EXTERNAL | | | | performed at [facility] [place];[address] | mmol/L | LAB | | | | [address];[place] | | | | | | [address] | | | | + + + + + + | Cl | 115 (H)Comment: Testing | 99 - 109 mmol/L | EXTERNAL | | | | performed at [facility] [place];[address] | | LAB | | | | [address];[place] | | | | | | [address] | | | | + + + + + + | CO2 | 26Comment: Testing | 23 - 32 mmol/L | EXTERNAL | | | | performed at [facility] [place];[address] | | LAB | | | | [address];[place] | | | | | | [address] | | | | + + + + + + | Anion Gap | 14Comment: Testing | 5 - 20 mmol/L | EXTERNAL | | | | performed at [facility] [place];[address] | | LAB | | | | [address];[place] | | | | | | [address] | | | | + + + + + + | Glucose, | 110 (H)Comment: Testing | 65 - 99 mg/dL | EXTERNAL | | | Fasting | performed at [facility] [place];[address] | | LAB | | | | [address];[place] | | | | | | [address] | | | | + + + + + + | BUN | 19Comment: Testing | 8 - 25 mg/dL | EXTERNAL | | | | performed at [facility] [place];[address] | | LAB | | | | [address];[place] | | | | | | [address] | | | | + + + + + + | Creatinine | 1.23 (H)Comment: Testing | 0.50 - 1.00 | EXTERNAL | | | | performed at [facility] [place];888 | mg/dL | LAB | | | | [address];[place] | | | | | | [address] | | | | + + + + + + | BUN/Creatin | 16Comment: Testing | | EXTERNAL | | | ine Ratio | performed at [facility] [place];[address] | | LAB | | | | [address];[place] | | | | | | [address] | | | | + + + + + + | Calcium | 9.1Comment: Testing | 8.5 - 10.5 | EXTERNAL | | | | performed at [facility] [place];888 | mg/dL | LAB | | | | [address];[place] | | | | | | [address] | | | | + + + [...] | | | | | | at [facility] [place];[address];[place] [address] | | | | + + + [...] | | | Fingerstick | performed at [facility] [place];[address] | | LAB | | | | [address];[place], [place] | | | | | | [address] | | | | + + + [...] | | | Fingerstick | performed at [facility] [place];[address] | | LAB | | | | [address];[place] | | | | | | [address] | | | | + + + [...] | | LAB | | | | [facility] [place];[address];[place] [address] | | | | + + + + + + | PCO2 ART | 31 (L)Comment: Testing | 35 - 45 mmHg | EXTERNAL | | | | performed at [facility] [place];[address] | | LAB | | | | [address];[place] | | | | | | [address] | | | | + + + + + + | PO2 ART | 93Comment: Testing | 80 - 105 mmHg | EXTERNAL | | | | performed at [facility] [place];[address] | | LAB | | | | [address];[place] | | | | | | [address] | | | | + + + + + + | Lactate, | 0.6Comment: Testing | 0.36 - 1.25 | EXTERNAL | | | Arterial | performed at [facility] [place];888 | mmol/L | LAB | | | | [address];[place] | | | | | | [address] | | | | + + + + + + | HCO3 ART | 23Comment: Testing | 22 - 26 mmol/L | EXTERNAL | | | | performed at [facility] [place];[address] | | LAB | | | | [address];[place] | | | | | | [address] | | | | + + + + + + | POC | 24Comment: Testing | 23 - 27 mEq/L | EXTERNAL | | | APPEARANCE | performed at [facility] [place];[address] | | LAB | | | UA | [address];[place] | | | | | | [address] | | | | + + + + + + | Base | 0Comment: Testing | 0 - 3 mEq/L | EXTERNAL | | | Excess, | performed at [facility] [place] [place];[address] | | LAB | | | Arterial | [address];[place] | | | | | | [address] | | | | + + + + + + | O2 SAT ART | 98Comment: Testing | 95 - 98 % | EXTERNAL | | | | performed at [facility] [place];[address] | | LAB | | | | [address];[place] | | | | | | [address] | | | | + + + + + + | FiO2, POC | 25Comment: Testing | % | EXTERNAL | | | | performed at [facility] [place];[address] | | LAB | | | | [address];[place] | | | | | | [address] | | | | + + + + + + | Comment, | Tidal Volume = | | EXTERNAL | | | POC | 20Comment: Peep = 5Resp | | LAB | | | | Rate = 46Testing | | | | | | performed at [facility] [place];[address] | | | | | | [address];[place] | | | | | | [address] | | | | + + + [...] EXTERNAL | | | | performed at [facility] [place] [place];888 | K/uL | LAB | | | | [address];[place] | | | | | | [address] | | | | + + + + + + | Red Blood | 3.56 (L)Comment: Testing | 3.70 - 5.10 | EXTERNAL | | | Cells | performed at [facility] [place] [place];888 | M/uL | LAB | | | Counted | [address];[place] | | | | | | [address] | | | | + + + + + + | Hemoglobin | 11.6Comment: Testing | 11.3 - 15.5 | EXTERNAL | | | | performed at [facility] [place] [place];888 | g/dL | LAB | | | | [address];[place] | | | | | | [address] | | | | + + + + + + | Hematocrit, | 33.7 (L)Comment: Testing | 34.0 - 46.0 % | EXTERNAL | | | POC | performed at [facility] [place] [place];[address] | | LAB | | | | [address];[place] | | | | | | [address] | | | | + + + + + + | MCV | 94.6Comment: Testing | 80.0 - 100.0 fl | EXTERNAL | | | | performed at [facility] [place];[address] | | LAB | | | | [address];[place] | | | | | | [address] | | | | + + + + + + | MCH | 32.6Comment: Testing | 27.0 - 34.0 pg | EXTERNAL | | | | performed at [facility] [place];[address] | | LAB | | | | [address];[place] | | | | | | [address] | | | | + + + + + + | MCHC | 34.5Comment: Testing | 32.0 - 35.5 | EXTERNAL | | | | performed at [facility] [place] [place];888 | g/dL | LAB | | | | [address];[place] | | | | | | [address] | | | | + + + + + + | RDW-CV | 53.4 (H)Comment: Testing | 37 - 53 fl | EXTERNAL | | | | performed at [facility] [place] [place];[address] | | LAB | | | | [address];[place] | | | | | | [address] | | | | + + + + + + | Platelet | 344Comment: Testing | 150 - 400 K/uL | EXTERNAL | | | Count | performed at [facility] [place] [place];888 | | LAB | | | Plasma | [address];[place] | | | | | | [address] | | | | + + + + + + | MPV | 7.3Comment: Testing | fl | EXTERNAL | | | | performed at [facility] [place] [place];[address] | | LAB | | | | [address];[place] | | | | | | [address] | | | | + + + + + + | Differentia | AUTOMATEDComment: | | EXTERNAL | | | l Type | Testing performed at | | LAB | | | | [facility] [place] [place];[address];[place] [address] | | | | + + + + + + | % Segmented | 59.60Comment: Testing | % | EXTERNAL | | | | performed at [facility] [place] [place];[address] | | LAB | | | Neutrophils | [address];[place] | | | | | | [address] | | | | + + + + + + | % | 24.07Comment: Testing | % | EXTERNAL | | | Lymphocytes | performed at [facility] [place];[address] | | LAB | | | | [address];[place] | | | | | | [address] | | | | + + + + + + | % Monocytes | 15.67Comment: Testing | % | EXTERNAL | | | | performed at [facility] [place] | | [place] | | | | [address];[place] | | | | | | [address] | | | | + + + + + + | % | 0.24Comment: Testing | % | EXTERNAL | | | Eosinophils | [place] [facility] [place] | | LAB | | | | [address];[place] | | | | | | [address] | | | | + + + + + + | % Basophils | 0.42Comment: Testing | % | EXTERNAL | | | | performed at [facility] [place] | | LAB | | | | [address];[place] | | | | | | [address] | | | | + + + + + + | Absolute | 5.50Comment: Testing | 1.90 - 7.40 | EXTERNAL | | | Segmented | performed [place] [facility] [place] | K/uL | LAB | | | Neutrophils | [address];[place] | | | | | | [address] | | | | + + + + + + | Absolute | 2.22Comment: Testing | 1.00 - 3.90 | EXTERNAL | | | Lymphocytes | performed at [facility] [place] | K/uL | LAB | | | | [address];[place] | | | | | | [address] | | | | + + + + + + | Absolute | 1.45 (H)Comment: Testing | 0.00 - 0.80 | EXTERNAL | | | Monocytes | performed at [facility] [place] | K/uL | LAB | | | | [address];[place] | | | | | | [address] | | | | + + + + + + | Absolute | 0.02Comment: Testing | 0.00 - 0.50 | EXTERNAL | | | Eosinophils | performed at [facility] [place] | K/uL | LAB | | | | [address];[place] | | | | | | [address] | | | | + + + + + + | Absolute | 0.04Comment: Testing | 0.00 - 0.10 | EXTERNAL | | | Basophils | performed at [facility] [place] | K/uL | LAB | | | | [address];[place] | | | | | | [address] | | | | + + + [...] EXTERNAL | | | | performed at [facility] [place] | | LAB | | | | [address];[place] | | | | | | [address] | | | | + + + [...] EXTERNAL | | | | performed at [facility] [place] | | LAB | | | | [address];[place], [place] | | | | | | [address] | | | | + + + [...] EXTERNAL | | | | performed at [facility] [place] | mmol/L | LAB | | | | [address];[place] | | | | | | [address] | | | | + + + + + + | K | 3.5Comment: Testing | 3.5 - 4.9 | EXTERNAL | | | | performed at [facility] [place] | mmol/L | LAB | | | | [address];[place] | | | | | | [address] | | | | + + + + + + | Cl | 113 (H)Comment: Testing | 99 - 109 mmol/L | EXTERNAL | | | | performed at [facility] [place] | | LAB | | | | [address];[place] | | | | | | [address] | | | | + + + + + + | CO2 | 23Comment: Testing | 23 - 32 mmol/L | EXTERNAL | | | | performed at [facility] [place] | | LAB | | | | [address];[place] | | | | | | [address] | | | | + + + + + + | Anion Gap | 16Comment: Testing | 5 - 20 mmol/L | EXTERNAL | | | | performed at [facility] [place] | | LAB | | | | [address];[place] | | | | | | [address] | | | | + + + + + + | Glucose, | 187 (H)Comment: Testing | 65 - 99 mg/dL | EXTERNAL | | | Fasting | performed at [facility] [place];[address] | | LAB | | | | [address];[place] | | | | | | [address] | | | | + + + + + + | BUN | 19Comment: Testing | 8 - 25 mg/dL | EXTERNAL | | | | performed at [facility] [place];[address] | | LAB | | | | [address];[place] | | | | | | [address] | | | | + + + + + + | Creatinine | 1.00Comment: Testing | 0.50 - 1.00 | EXTERNAL | | | | performed at [facility] [place] | mg/dL | LAB | | | | [address];[place] | | | | | | [address] | | | | + + + + + + | BUN/Creatin | 19Comment: Testing | | EXTERNAL | | | ine Ratio | performed at [facility] [place];[address] | | LAB | | | | [address];[place] | | | | | | [address] | | | | + + + + + + | Calcium | 9.1Comment: Testing | 8.5 - 10.5 | EXTERNAL | | | | performed at [facility] [place];[address] | mg/dL | LAB | | | | [address];[place], [place] | | | | | | [address] | | | | + + + [...] | | | | | | at [facility] [place];[address] [facility] | | | | | | Blvd;[place] [address] | | | | + + + [...] JESS | | | Testing performed at [facility], [address] [place] | | | [address] | | + + + + +---------+ [...] | | | | | foundConfirmed by CHYNA, | | | | | | DUY (209) on 09/06/2014 | | | | | | 4:01:36 PM | | | | + + + + + + + + | Specimen | + + | | + + + + + | Narrative | Performed At | + + + | Historically converted procedure from [facility] | EXTERNAL LAB | + + + [...] | | | Fingerstick | performed at [facility] [place] [place];[address] | | LAB | | | | [address];[place], [place] | | | | | | [address] | | | | + + + [...] + + | Hemoglobin | 5.1Comment: The [place] | 4.0 - 6.0 % | EXTERNAL [...] | | | | | performed at [facility], [address], | | | | | | [place] [address] | | | | + + + [...] | | | | | performed at [facility], [address] | | | | | | [address], | | | | | | [place] [address] | | | | + + + [...] EXTERNAL | | | | performed at [facility] [place];[address] | | LAB | | | | [address];[place] | | | | | | [address] | | | | + + + [...] Conversion - 12/02/2018 4:36 AM PDT KAIT FIGUEROA CHEST 1 VIEW09/06/2014 | | 3:19 AM [...] | | LAB | | | | [facility] [place];[address];[place] [address] | | | | + + + + + + | PCO2 ART | 21 (L)Comment: Testing | 35 - 45 mmHg | EXTERNAL | | | | performed at [facility] [place];[address] | | LAB | | | | [address];[place] | | | | | | [address] | | | | + + + + + + | PO2 ART | 61 (L)Comment: Testing | 80 - 105 mmHg | EXTERNAL | | | | performed at [facility] [place];[address] | | LAB | | | | [address];[place] | | | | | | [address] | | | | + + + + + + | Lactate, | 0.9Comment: Testing | 0.36 - 1.25 | EXTERNAL | | | Arterial | performed at [facility] [place];[address] | mmol/L | LAB | | | | [address];[place] | | | | | | [address] | | | | + + + + + + | HCO3 ART | 22Comment: Testing | 22 - 26 mmol/L | EXTERNAL | | | | performed at [facility] [place];[address] | | LAB | | | | [address];[place] | | | | | | [address] | | | | + + + + + + | POC | 22 (L)Comment: Testing | 23 - 27 mEq/L | EXTERNAL | | | APPEARANCE | performed at [facility] [place];[address] | | LAB | | | UA | [address];[place] | | | | | | [address] | | | | + + + + + + | Base | 0Comment: Testing | 0 - 3 mEq/L | EXTERNAL | | | Excess, | performed at [facility] [place];[address] | | LAB | | | Arterial | [address];[place] | | | | | | [address] | | | | + + + + + + | O2 SAT ART | 95Comment: Testing | 95 - 98 % | EXTERNAL | | | | performed at [facility] [place];[address] | | LAB | | | | [address];[place] | | | | | | [address] | | | | + + + + + + | FiO2, POC | 25Comment: Testing | % | EXTERNAL | | | | performed at [facility] [place];[address] | | LAB | | | | [address];[place] | | | | | | [address] | | | | + + + + + + | Comment, | Tidal Volume = | | EXTERNAL | | | POC | 472Comment: Peep = 5Resp | | LAB | | | | Rate = 32Testing | | | | | | performed at [facility] [place];[address] | | | | | | [address];[place] | | | | | | [address] | | | | + + + [...] EXTERNAL LAB | | Testing performed at [facility] [place];[address] [facility];[place] [address] MRSA PCR | | | NEGATIVE Testing performed at | | | [facility] [place];[address] [facility];[place] [address] | | + + + + +---------+ [...] EXTERNAL | | | | performed at [facility] [place] [place];[address] | mOsm/kg | LAB | | | | [address];[place], [place] | | | | | | [address] | | | | + + + [...] + + | PH ART | 7.650 ()Comment: | 7.350 - 7.450 | EXTERNAL | | | | Testing performed at | | LAB | | | | [facility] [place];[address];[place] [address] | | | | + + + + + + | PCO2 ART | 18 (LL)Comment: Testing | 35 - 45 mmHg | EXTERNAL | | | | performed at [facility] [place];[address] | | LAB | | | | [address];[place] | | | | | | [address] | | | | + + + + + + | PO2 ART | 66 (L)Comment: Testing | 80 - 105 mmHg | EXTERNAL | | | | performed at [facility] [place];[address] | | LAB | | | | [address];[place] | | | | | | [address] | | | | + + + + + + | Lactate, | 0.9Comment: Testing | 0.36 - 1.25 | EXTERNAL | | | Arterial | performed at [facility] [place] [place];[address] | mmol/L | LAB | | | | [address];[place] | | | | | | [address] | | | | + + + + + + | HCO3 ART | 20 (L)Comment: Testing | 22 - 26 mmol/L | EXTERNAL | | | | performed at [facility] [place];[address] | | LAB | | | | [address];[place] | | | | | | [address] | | | | + + + + + + | POC | 21 (L)Comment: Testing | 23 - 27 mEq/L | EXTERNAL | | | APPEARANCE | performed at [facility] [place];[address] | | LAB | | | UA | [address];[place] | | | | | | [address] | | | | + + + + + + | Base | 1Comment: Testing | 0.0 - 2.0 | EXTERNAL | | | deficit | performed at [facility] [place];888 | mmol/L | LAB | | | | [address];[place] | | | | | | [address] | | | | + + + + + + | O2 SAT ART | 97Comment: Testing | 95 - 98 % | EXTERNAL | | | | performed at [facility] [place];[address] | | LAB | | | | [address];[place] | | | | | | [address] | | | | + + + + + + | FiO2, POC | 21Comment: Testing | % | EXTERNAL | | | | performed at [facility] [place];[address] | | LAB | | | | [address];[place] | | | | | | [address] | | | | + + + [...] | | | Patient | performed at [facility] [place] [place];[address] | | LAB | | | | [address];[place], [place] | | | | | | [address] | | | | + + + + + + + + | Specimen | + + | Blood specimen | | (specimen) | + + + +---------+ + + | Performing | Address | City/State/Zipcode | Phone Number | | Organization | | | | + +---------+ + + | EXTERNAL LAB | | | | + +---------+ + + Joseime SOPHIE (09/06/2014 1:08 AM PDT) + + + [...] | | | | | performed at [facility] [place];[facility] | | | | | | [facility];[place], [place] | | | | | | [address] | | | | + + + [...] EXTERNAL | | | | performed at [facility] [place];[address] | | LAB | | | | [address];[place] | | | | | | [address] | | | | + + + [...] | | | Serum | performed at [facility] [place] [place];[address] | mOsm/kg | LAB | | | | [address];[place], [place] | | | | | | [address] | | | | + + + [...] EXTERNAL | | | | performed at [facility] [place];[facility] | | LAB | | | | [address];[place] | | | | | | [address] | | | | + + + [...] EXTERNAL | | | | performed at [facility] [place];888 | mmol/L | LAB | | | | [address];[place] | | | | | | [address] | | | | + + + + + + | K | 2.8 (L)Comment: Testing | 3.5 - 4.9 | EXTERNAL | | | | performed at [facility] [place];[address] | mmol/L | LAB | | | | [address];[place] | | | | | | [address] | | | | + + + + + + | Cl | 106Comment: Testing | 99 - 109 mmol/L | EXTERNAL | | | | performed at [facility] [place];[address] | | LAB | | | | [address];[place] | | | | | | [address] | | | | + + + + + + | CO2 | 22 (L)Comment: Testing | 23 - 32 mmol/L | EXTERNAL | | | | performed at [facility] [place];[address] | | LAB | | | | [address];[place] | | | | | | [address] | | | | + + + + + + | Anion Gap | 18Comment: Testing | 5 - 20 mmol/L | EXTERNAL | | | | performed at [facility] [place];[address] | | LAB | | | | [address];[place] | | | | | | [address] | | | | + + + + + + | Glucose, | 276 (H)Comment: Testing | 65 - 99 mg/dL | EXTERNAL | | | Fasting | performed at [facility] [place];[address] | | LAB | | | | [address];[place] | | | | | | [address] | | | | + + + + + + | BUN | 17Comment: Testing | 8 - 25 mg/dL | EXTERNAL | | | | performed at [facility] [place];[address] | | LAB | | | | [address];[place] | | | | | | [address] | | | | + + + + + + | Creatinine | 0.94Comment: Testing | 0.50 - 1.00 | EXTERNAL | | | | performed at [facility] [place];888 | mg/dL | LAB | | | | [address];[place] | | | | | | [address] | | | | + + + + + + | BUN/Creatin | 18Comment: Testing | | EXTERNAL | | | ine Ratio | performed at [facility] [place];[address] | | LAB | | | | [address];[place] | | | | | | [address] | | | | + + + + + + | Calcium | 9.2Comment: Testing | 8.5 - 10.5 | EXTERNAL | | | | performed at [facility] [place];888 | mg/dL | LAB | | | | [address];[place] | | | | | | [address] | | | | + + + + + + | Protein, | 6.7Comment: Testing | 6.3 - 8.2 g/dL | EXTERNAL | | | Total | performed at [facility] [place];[address] | | LAB | | | | [address];[place] | | | | | | [address] | | | | + + + + + + | Albumin | 2.8 (L)Comment: Testing | 3.6 - 5.0 g/dL | EXTERNAL | | | | performed at [facility] [place];[address] | | LAB | | | | [address];[place] | | | | | | [address] | | | | + + + + + + | Globulin | 3.8Comment: Testing | 1.3 - 4.9 g/dL | EXTERNAL | | | | performed at [facility] [place];[address] | | LAB | | | | [address];[place] | | | | | | [address] | | | | + + + + + + | A/G Ratio | 0.7 (L)Comment: Testing | 1.0 - 2.4 | EXTERNAL | | | | performed at [facility] [place];[address] | | LAB | | | | [address];[place] | | | | | | [address] | | | | + + + + + + | Bilirubin | 0.5Comment: Testing | 0.1 - 1.5 mg/dL | EXTERNAL | | | Total | performed at [facility] [place];[address] | | LAB | | | | [address];[place] | | | | | | [address] | | | | + + + + + + | ALP, | 81Comment: Testing | 35 - 115 U/L | EXTERNAL | | | External | performed at [facility] [place];[address] | | LAB | | | | [address];[place] | | | | | | [address] | | | | + + + + + + | AST | 36Comment: Testing | 10 - 45 U/L | EXTERNAL | | | | performed at [facility] [place];[address] | | LAB | | | | [address];[place] | | | | | | [address] | | | | + + + + + + | ALT | 63Comment: Testing | 10 - 65 U/L | EXTERNAL | | | | performed at [facility] [place];[address] | | LAB | | | | [address];[place] | | | | | | [address] | | | | + + + [...] | | | | | | at [facility];[address];[place] [address] | | | | + + [...] (500), | | | | | | graphic editor Robbins, Virginie | | | | | | 25) on 09/06/2014 | | | | | | 12:58:10 AM | | | | + + + + + + + + | Specimen | + + | | + + + + + | Narrative | Performed At | + + + | Historically converted procedure from [facility] | EXTERNAL LAB | + + + [...] + + | PH ART | 7.559 ()Comment: | 7.350 - 7.450 | EXTERNAL | | | | Testing performed at | | LAB | | | | [facility] [place] [place];[address] | | | | | [address];[place] [address] | | | | + + + + + + | PCO2 ART | 12 (LL)Comment: Testing | 35 - 45 mmHg | EXTERNAL | | | | performed at [facility] [place] [place];[address] | | LAB | | | | [address];[place] | | | | | | [address] | | | | + + + + + + | PO2 ART | 86Comment: Testing | 80 - 105 mmHg | EXTERNAL | | | | performed at [facility] [place] [place];[address] | | LAB | | | | [address];[place] | | | | | | [address] | | | | + + + + + + | Lactate, | 1.4 (H)Comment: Testing | 0.36 - 1.25 | EXTERNAL | | | Arterial | performed at [facility] [place] [place];[address] | mmol/L | LAB | | | | [address];[place] | | | | | | [address] | | | | + + + + + + | HCO3 ART | 11 (L)Comment: Testing | 22 - 26 mmol/L | EXTERNAL | | | | performed at [facility] [place] [place];[address] | | LAB | | | | [address];[place] | | | | | | [address] | | | | + + + + + + | POC | 11 (L)Comment: Testing | 23 - 27 mEq/L | EXTERNAL | | | APPEARANCE | performed at [facility] [place] [place];[address] | | LAB | | | UA | [address];[place] | | | | | | [address] | | | | + + + + + + | Base | 11 (H)Comment: Testing | 0.0 - 2.0 | EXTERNAL | | | deficit | performed at [facility] [place] [place];888 | mmol/L | LAB | | | | [address];[place] | | | | | | [address] | | | | + + + + + + | O2 SAT ART | 98Comment: Testing | 95 - 98 % | EXTERNAL | | | | performed at [facility] [place] [place];[address] | | LAB | | | | [address];[place] | | | | | | [address] | | | | + + + [...] | | LAB | | | | [facility];[address];[place] [address] | | | | + + + [...] K/uL | LAB | | | | [facility];[address];[place] [address] | | | | + + + + + -+ | Red Blood | 4.46Comment: Testing | 3.70 - 5.10 | EXTERNAL | | | Cells | performed at [facility] [place];888 | M/uL | LAB | | | Counted | [address];[place] | | | | | | [address] | | | | + + + + + -+ | Hemoglobin | 14.8Comment: Testing | 11.3 - 15.5 | EXTERNAL | | | | performed at [facility] [place] [place];888 | g/dL | LAB | | | | [address];[place] | | | | | | [address] | | | | + + + + + -+ | Hematocrit, | 42.9Comment: Testing | 34.0 - 46.0 % | EXTERNAL | | | POC | performed at [facility] [place] [place];[address] | | LAB | | | | [address];[place] | | | | | | [address] | | | | + + + + + -+ | MCV | 96.3Comment: Testing | 80.0 - 100.0 fl | EXTERNAL | | | | performed at [facility] [place] [place];[address] | | LAB | | | | [address];[place] | | | | | | [address] | | | | + + + + + -+ | MCH | 33.2Comment: Testing | 27.0 - 34.0 pg | EXTERNAL | | | | performed at [facility];[address] | | LAB | | | | [address];[place] | | | | | | [address] | | | | + + + + + -+ | MCHC | 34.5Comment: Testing | 32.0 - 35.5 | EXTERNAL | | | | performed at [facility] [place] [place];888 | g/dL | LAB | | | | [address];[place] | | | | | | [address] | | | | + + + + + -+ | RDW-CV | 53.4 (H)Comment: Testing | 37 - 53 fl | EXTERNAL | | | | performed at [facility] [place] [place];[address] | | LAB | | | | [address];[place] | | | | | | [address] | | | | + + + + + -+ | Platelet | 393Comment: Testing | 150 - 400 K/uL | EXTERNAL | | | Count | performed at [facility] [place];[address] | | LAB | | | Plasma | [address];[place] | | | | | | [address] | | | | + + + + + -+ | MPV | 7.6Comment: Testing | fl | EXTERNAL | | | | performed at [facility] [place];[address] | | LAB | | | | [address];[place] | | | | | | [address] | | | | + + + + + -+ | Differentia | AUTOMATEDComment: | | EXTERNAL | | | l Type | Testing performed at | | LAB | | | | [facility];[address];[place] [address] | | | | + + + + + -+ | % Segmented | 78.26Comment: Testing | % | EXTERNAL | | | | performed at [facility] [place];[address] | | LAB | | | Neutrophils | [address];[place] | | | | | | [address] | | | | + + + + + -+ | % | 8.69Comment: Testing | % | EXTERNAL | | | Lymphocytes | performed at [facility];[address] | | LAB | | | | [address];[place] | | | | | | [address] | | | | + + + + + -+ | % Monocytes | 12.49Comment: Testing | % | EXTERNAL | | | | performed at [facility];[address] | | LAB | | | | [address];[place] | | | | | | [address] | | | | + + + + + -+ | % | 0.12Comment: Testing | % | EXTERNAL | | | Eosinophils | performed at [facility];[address] | | LAB | | | | [address];[place] | | | | | | [address] | | | | + + + + + -+ | % Basophils | 0.44Comment: Testing | % | EXTERNAL | | | | performed at [facility];[address] | | LAB | | | | [address];[place] | | | | | | [address] | | | | + + + + + -+ | Absolute | 8.71 (H)Comment: Testing | 1.90 - 7.40 | EXTERNAL | | | Segmented | performed at [facility];[address] | K/uL | LAB | | | Neutrophils | [address];[place] | | | | | | [address] | | | | + + + + + -+ | Absolute | 0.97 (L)Comment: Testing | 1.00 - 3.90 | EXTERNAL | | | Lymphocytes | performed at [facility];[address] | K/uL | LAB | | | | [address];[place] | | | | | | [address] | | | | + + + + + -+ | Absolute | 1.39 (H)Comment: Testing | 0.00 - 0.80 | EXTERNAL | | | Monocytes | performed at [facility];[address] | K/uL | LAB | | | | [address];[place] | | | | | | [address] | | | | + + + + + -+ | Absolute | 0.01Comment: Testing | 0.00 - 0.50 | EXTERNAL | | | Eosinophils | performed at [facility];[address] | K/uL | LAB | | | | [address];[place] | | | | | | [address] | | | | + + + + + -+ | Absolute | 0.05Comment: Testing | 0.00 - 0.10 | EXTERNAL | | | Basophils | performed at [facility];[address] | K/uL | LAB | | | | [address];[place] | | | | | | [address] | | | | + + + + + -+ | Na | 139Comment: Testing | 135 - 143 | EXTERNAL | | | | performed at [facility];888 | mmol/L | LAB | | | | [address];[place] | | | | | | [address] | | | | + + + + + -+ | K | 3.6Comment: Testing | 3.5 - 4.9 | EXTERNAL | | | | performed at [facility];888 | mmol/L | LAB | | | | [address];[place] | | | | | | [address] | | | | + + + + + -+ | Cl | 104Comment: Testing | 99 - 109 mmol/L | EXTERNAL | | | | performed at [facility];[address] | | LAB | | | | [address];[place] | | | | | | [address] | | | | + + + + + -+ | CO2 | 12 (LL)Comment: CALLED | 23 - 32 mmol/L | EXTERNAL | | | | RESULTSREAD BACK RESULTS | | LAB | | | | ABIGAIL/DAMIAN AGUIRRE | | | | | | AT 1824 BY SALTesting | | | | | | performed at [facility];[address] | | | | | | [address];[place] | | | | | | [address] | | | | + + + + + -+ | Anion Gap | 26 (H)Comment: Testing | 5 - 20 mmol/L | EXTERNAL | | | | performed at [facility];[address] | | LAB | | | | [address];[place] | | | | | | [address] | | | | + + + + + -+ | Glucose, | 229 (H)Comment: Testing | 65 - 99 mg/dL | EXTERNAL | | | Fasting | performed at [facility];[address] | | LAB | | | | [address];[place] | | | | | | [address] | | | | + + + + + -+ | BUN | 22Comment: Testing | 8 - 25 mg/dL | EXTERNAL | | | | performed at [facility] [place] | | [place] | | | | [address];[place] | | | | | | [address] | | | | + + + + + -+ | Creatinine | 1.07 (H)Comment: Testing | 0.50 - 1.00 | EXTERNAL | | | | performed at [facility] [place] | mg/dL | LAB | | | | [address];[place] | | | | | | [address] | | | | + + + + + -+ | BUN/Creatin | 21Comment: Testing | | EXTERNAL | | | ine Ratio | performed [place] [facility] [place] | | LAB | | | | [address];[place] | | | | | | [address] | | | | + + + + + -+ | Calcium | 10.8 (H)Comment: Testing | 8.5 - 10.5 | EXTERNAL | | | | performed at [facility] [place] | mg/dL | LAB | | | | [address];[place] | | | | | | [address] | | | | + + + + + -+ | Protein, | 8.5 (H)Comment: Testing | 6.3 - 8.2 g/dL | EXTERNAL | | | Total | performed at [facility] [place] | | LAB | | | | [address];[place] | | | | | | [address] | | | | + + + + + -+ | Albumin | 3.5 (L)Comment: Testing | 3.6 - 5.0 g/dL | EXTERNAL | | | | performed at [facility] [place] | | LAB | | | | [address];[place] | | | | | | [address] | | | | + + + + + -+ | Globulin | 5.0 (H)Comment: Testing | 1.3 - 4.9 g/dL | EXTERNAL | | | | performed at [facility] [place] | | LAB | | | | [address];[place] | | | | | | [address] | | | | + + + + + -+ | A/G Ratio | 0.7 (L)Comment: Testing | 1.0 - 2.4 | EXTERNAL | | | | performed at [facility] [place] | | LAB | | | | [address];[place] | | | | | | [address] | | | | + + + + + -+ | Bilirubin | 0.5Comment: Testing | 0.1 - 1.5 mg/dL | EXTERNAL | | | Total | performed at [facility] [place] | | LAB | | | | [address];[place] | | | | | | [address] | | | | + + + + + -+ | ALP, | 99Comment: Testing | 35 - 115 U/L | EXTERNAL | | | External | performed at [facility] [place] | | LAB | | | | [address];[place] | | | | | | [address] | | | | + + + + + -+ | AST | 55 (H)Comment: Testing | 10 - 45 U/L | EXTERNAL | | | | performed [place] [facility] [place] | | LAB | | | | [address];[place] | | | | | | [address] | | | | + + + + + -+ | ALT | 81 (H)Comment: Testing | 10 - 65 U/L | EXTERNAL | | | | performed at [facility] [place] | | LAB | | | | [address];[place] | | | | | | [address] | | | | + + + [...] | | | | | | at [facility] [place] | [address];[place] [phone] | | | | + + + + + -+ | CK, Total | 259 (H)Comment: Testing | 30 - 240 U/L | EXTERNAL | | | | performed at [facility] [place] | | LAB | | | | [address];[place] | | | | | | [address] | | | | + + + [...] | | | | | performed at [facility] [place];[address] | | | | | | [address];[place] | | | | | | [address] | | | | + + + + + -+ | aPTT, | 33 (H)Comment: Testing | 23 - 32 seconds | EXTERNAL | | | Patient | performed at [facility] [place] | | LAB | | | | [address];[place] | | | | | | [phone] | | | | + + + + + -+ | CK-MB | 11.4 (H)Comment: Testing | 0.5 - 3.6 ng/mL | EXTERNAL | | | | performed at [facility] [place]888 | | LAB | | | | [address];[place], [place] | | | | | | [address] | | | | + + + [...] EXTERNAL | | | | performed at [facility] [place]888 | | LAB | | | | [address];[place] | | | | | | [address] | | | | + + + [...] EXTERNAL | | | | performed at [facility] [place] | | LAB | | | | [address];[place] | | | | | | [address] | | | | + + + [...] EXTERNAL | | | | performed at [facility] [place];888 | mmol/L | LAB | | | | [address];[place], [place] | | | | | | [address] | | | | + + + [...] | | | Lvl | performed at [facility] [place];888 | mg/dL | LAB | | | | [address];[place] | | | | | | [address] | | | | + + + [...]
--- OUTSIDE RECORDS SUMMARY | ~2019-09-02 | XMS | Encounter Summary ---
Demographics + + + | Address | [address] | | | [place] [address] | + + + | Home Phone [...] | | | | | [place] [address] | | + + + + + Care Team Providers + +------+ + | Care Retirement Administrator Name | Role | Phone | [...] [place] | | | | | [address] | [address] | | | | | Physician's | [place], [place] | | | | | Bk, 2nd floor | [address] | | | | | [place], [place] | [phone] | | | | | [address] | | | | | | [phone] | | | +--------+ + + + [...] | | + +---------+ + + | [facility] DEPARTMENT OF | | | | | RADIOLOGY | | | | + +---------+ + + documented in this encounter Visit Diagnoses Not on filedocumented in this encounter"
--- OUTSIDE RECORDS SUMMARY | ~2019-09-02 | XMS | Encounter Summary ---
Demographics + + + | Address | [address] | | | [place] [address] | + + + | Home Phone [...] | | | | | [place] [address] | | + + + + + | Robson Min | ECON | Unknown | | + + + + + | Isabella Whitehead | ECON | Unknown | | + + + + + | Seven Neff | ECON | Unknown | | + + + + + Care Team Providers + +------+ + | Care Torts Law Professor Name | Role | Phone | [...] | MED CTR EXTERNAL | MD Shira [address] | | | | | IMAGING [address] | [address] | | | | | [address] | [place] [address] | | | | | [place] [address] | | | | | | [phone] | | | +--------+ + + + [...] [place] | | | | | | [address] | | | | | | | | +--------+---------+ + + + | 11/05/ | Office | Neurology | Tariq, | | | 2019 | Visit | | [address] | | | | | | [address] [place] [place], | | | | | | [place] [address] | | | | | | [phone] | | | | | | | [...]
--- OUTSIDE RECORDS SUMMARY | ~2019-09-02 | XMS | Encounter Summary ---
Demographics + + + | Address | [address] | | | [place] [address] | + + + | Home Phone [...] | | | | | [place] [address] | | + + + + + Care Team Providers + +------+ + | Care Warehouse Record Clerk Name | Role | Phone | [...]
--- OUTSIDE RECORDS SUMMARY | ~2019-09-02 | XMS | Encounter Summary ---
Demographics + + + | Address | [address] | | | [place] [address] | + + + | Home Phone [...] | | | | | [place] [address] | | + + + + + | Robson Min | ECON | Unknown | | + + + + + | Isabella Whitehead | ECON | Unknown | | + + + + + | Seven Neff | ECON | Unknown | | + + + + + Care Team Providers + +------+ + | Care Wad Impregnator Name | Role | Phone | + [...] [place] | obstructive | | | | [place], | [place], [place] | pulmonary disease) | | | | [place] [address] | [address] | (HCC) (Primary Dx) | | | | [phone] | | | +--------+---------+ + + + [...] October. The patient was apparently hospitalized at [facility] in [facility] in March 2013 for pneumonia. Therapy consisted of antibiotics and supplemental oxygen. The patient was discharged home on oxygen at 1 L per minute. She is subsequently been told by Dr. Ba wear supplemental oxygen at night while she sleeps. The patient was placed on Ad vair at the [facility]. Kait has questions regarding whether she still [...] Date Wrist pain Diabetes mellitus, type 2 ([facility]) Vitamin D deficiency Hypercholesterolemia Hypothyroidism Panic anxiety syndrome IBS (irritable bowel syndrome) Restless leg syndrome Urinary hesitancy Lumbago Nocturia Pyoderma gangreosum-LE Bipolar 1 disorder ([facility]) Hypertension Lymphedema Nausea and vomiting Reflux esophagitis GI bleeding Empyema lung ([facility]) 2005 right Knee pain CHRONIC TENSION [...] 4 times daily., Disp: , Rfl: ; riiazdseai-cmzfoen-melwbzjh (BUTALBITA L COMPOUND/ASA) per tablet, One tablet [...] | | | | | [place] | | | | | | [address] | | | | | | | | +--------+---------+ + + + | 11/05/ | Office | Neurology | Tariq, | | 2019 | Visit | | [address] | | | | | | [address] [facility], | | | | | | [place] [address] | | | | | | [phone] | | | | | | | [...] | 08/22/2014 | | | | | ([facility]) | | + + +--------+ + + documented as of this encounter Results PFT PULMONARY FUNCTION TESTING ORDERS Full PFT ([place] w/BD, lung volumes, diffusion)?: Yes; Rest and [...] MD 08/25/2013 15:49 WS | | | [facility] | | + + + + [...] | | Navdeep Grande MD 08/25/2013 15:49[facility] | |IMPRESSION: Spirometry is consistent with normal physiology. Lung volume testing is consist ent with normal physiology. Diffusion capacity is mildly reduced and was not corrected for m easured hemoglobin. | | | |No prior pulmonary function tests available for comparison | | | |Test performed: 08/25/13 | |Electronically signed by: Navdeep Grande MD 08/25/2013 15:49 | |[facility] | + + documented in this encounter Visit Diagnoses + + | Diagnosis | + + | COPD (chronic obstructive pulmonary disease) (HCC) - Primary Chronic airway | | obstruction, not elsewhere classified | + + documented in this encounter
--- OUTSIDE RECORDS SUMMARY | ~2019-09-02 | XMS | Encounter Summary ---
Demographics + + + | Address | [address] | | | [place] [address] | + + + | Home Phone [...] | | | | | [place] [address] | | + + + + + Care Team Providers + +------+ + | Care Mirror Specialist Name | Role | Phone | [...] as of this encounter Progress Notes Interface, Orthopedic Physician In - 03/19/2006 1:11 AM [facility] [place], [place] [address] or May 16, 1999 Leland Marcum D. [address] [place] [address] RE: CARLINE MIN MR #: [id number] Dear Dr. Bright: I had the pleasure of evaluating your patient, Carline Min, in Rheumatology Clinic today. As you know, she is a 28-year-old female with rheumatoid arthritis, who was previously followed in this clinic, who presents to [facility]. She has had symptoms since around 1991. 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 There is no laboratory data available [...] months. This case was discussed with staff work order sorting clerk, Dr. Deyvi Lainez, who also examined the patient and agrees with the above. Thank you for allowing us to participate in the care of Mrs. Min, and please call if you wish to discuss her case any further. Lastly, we would appreciate if you could forward the results of her laboratory tests to us #[phone] (fax number). Sincerely, Ameya Steen M.D. Resident, Internal Medicine Deyvi Lainez M.D. Cognos Bi Administrator, Rheumatology [facility] / [id number] / [id number] / [id number] / [id number] signed by Interface, Orthopedic Physician In at 03/19/2006 1:11 AM PSTdocume nted in this encounter Plan of Treatment Not on filedocumented as of this encounter Visit Diagnoses Not on filedocumented in this encounter"
--- OUTSIDE RECORDS SUMMARY | ~2019-09-02 | XMS | Encounter Summary ---
Demographics + + + | Address | [address] | | | [place] [address] | + + + | Home Phone [...] + + | Author | [facility] | | | and [place] | + + + | Organization | [facility] | | | [...] | | | | | [place] [address] | | + + + + + | Robson Min | ECON | Unknown | | + + + + + | Isabella Whitehead | ECON | Unknown | | + + + + + | Seven Neff | ECON | Unknown | | + + + + + Care Team Providers + +------+ + | Care Director Of Academic Support Name | Role | Phone | + [...] + + | 11/03/ | Office | [facility] | Neno Walker | Nocturnal oxygen | | 2019 | Visit | SLEEP DISORDER [address] | MD Srinivas [address] | desaturation | | | | [address] [place] | [address] [place] | (Primary Dx); | | | | [place] [address] | [place] [address] | Chronic obstructive | | | | [phone] | [phone] | pulmonary disease, | | | | [...] breaths does not meet criteria for an director loan ea or hypopnea. Sleep Architecture: Lights out [...] obstructive apneas, 0 mixed apneas, 0 central director loan eas, 3 hypopneas, and 18 Respiratory Effort [...] Test performed: 09/22/2018 Electronically signed by: Navdeep Garnde MD 09/22/2018 14:54 [facility] BP 120/80 | Pulse 86 | [...] | 2019 | Visit | | MD Ceyl GORE | | | | | | [place] | | | | | | [address] | | | | | | | | +--------+---------+ + + + | 11/05/ | Office | Neurology | Tariq, | | | 2019 | Visit | | [address] | | | | | | [address] [place], | | | | | | [place] [address] | | | | | | [phone] | | | | | | | [...]
--- OUTSIDE RECORDS SUMMARY | ~2019-09-02 | XMS | Encounter Summary ---
Demographics + + + | Address | [address] | | | [place] [address] | + + + | Home Phone [...] + + + | Author | [facility] | | | and [place] | + + + | Organization | [facility] | | | [...] | | | | | [place] [address] | | + + + + + | Robson Min | ECON | Unknown | | + + + + + | Isabella Whitehead | ECON | Unknown | | + + + + + | Seven Neff | ECON | Unknown | | + + + + + Care Team Providers + +------+ + | Care Associate Art Director Name | Role | Phone | [...] | | | [address] [place], | [address] | | | | | [place] [address] | | | | | | [phone] | | | +--------+ + + + [...] [place] | | | | | | [address] | | | | | | | | +--------+---------+ + + + | 11/05/ | Office | Neurology | Tariq, | | | 2019 | Visit | | [address] | | | | | | [address] [place], | | | | | | [place] [address] | | | | | | [phone] | | | | | | | | +--------+---------+ + + + documented as of this encounter Visit Diagnoses Not on filedocumented in this encounter"
--- OUTSIDE RECORDS SUMMARY | ~2019-09-02 | XMS | Encounter Summary ---
Demographics + + + | Address | [address] | | | [place] [address] | + + + | Home Phone | | + + + | Preferred Language | Unknown | + + + | Marital Status | Single | + + + | Jainism Affiliation | Unknown | + + + [...] | | | | | [place] [address] | | + + + + + | Robson Min | ECON | Unknown | | + + + + + | Isabella Whitehead | ECON | Unknown | | + + + + + | Seven Neff | ECON | Unknown | | + + + + + Care Team Providers + +------+ + | Care Grain Unloader Machine Name | Role | Phone | + [...] | MED CTR EXTERNAL | MD Shira [address] | | | | | IMAGING [address] | [address] | | | | | [address] | [place] [address] | | | | | [place] [address] | | | | | | [phone] | | | +--------+ + + + [...] [place] | | | | | | [address] | | | | | | | | +--------+---------+ + + + | 11/05/ | Office | Neurology | Tariq, | | | 2019 | Visit | | [address] | | | | | | [address] [facility], | | | | | | [place] [address] | | | | | | [phone] | | | | | | | [...]
--- OUTSIDE RECORDS SUMMARY | ~2019-09-02 | XMS | Encounter Summary ---
Demographics + + + | Address | [address] | | | [place] [address] | + + + | Home Phone | | + + + | Preferred Language | Unknown | + + + | Marital Status | Single | + + + | Mu-Ism Affiliation | Unknown | + + + [...] | | | | | [place] [address] | | + + + + + | Robson Min | ECON | Unknown | | + + + + + | Isabella Whitehead | ECON | Unknown | | + + + + + | Seven Neff | ECON | Unknown | | + + + + + Care Team Providers + +------+ + | Care Cut Off Saw Operator Name | Role | Phone | + +------+ + | Ora Slater | PCP | | + +------+ + Encounter Details +--------+ + + + + | Date | Type | Department | Care Team | Description | +--------+ + + + + | 12/15/ | Orders Only | [facility] [place] | Maxine Wadsworth | | | 2018 | | PULMONARY [address] | M, Loan Consultant | | | | | [place] | | | | | | [place] [address] | | | | | | [phone] | | | +--------+ + + + [...] | | | | | [place] | | | | | | [address] | | | | | | | | +--------+---------+ + + + | 11/05/ | Office | Neurology | Tariq, | | | 2019 | Visit | | [address] | | | | | | [address] [place] [place], | | | | | | [place] [address] | | | | | | [phone] | | | | | | | | +--------+---------+ + + + documented as of this encounter Visit Diagnoses Not on filedocumented in this encounter"
--- OUTSIDE RECORDS SUMMARY | ~2019-09-02 | XMS | Clinical Summary ---
Demographics + + + | Address | [address] | | | [place] [address] | + + + | Home Phone | | + + + | Preferred Language | Unknown | + + + | Marital Status | Single | + + + | Cheondoism Affiliation | Unknown | + + + | Race | Unknown | + + + | Ethnic Group | Unknown | + + + Author + + + | Author | [employer] [facility] (Historical as of | | | 12-03-18) | + + + | Organization | [facility] (Historical as of | | | 12-03-18) [...] | | + + +---------+ + | rCisti Dave | ECON | Unknown | | + + +---------+ + Care Team Providers + +------+ + | Care B2B Account Executive Name | Role | Phone | [...] | | | | Activ | | [id number]-xvxseev-n | mouth every 4 (four) | | [...] | | 02/10/2018, 01/27/2017, | | | (Season Ended) | 0 | 02/17/2016, Additional history | | | [...] +------+-------+ + | MEDICAID | JOSEER | [id number] | | | [address] | | | [address] | | | | [place] | | | [place] | | | | [address] | | | STRATEGIC MARKETING SPECIALIST | | | | | + +--------+ [...] | kristy | | | [address] | [address] | + +--------+ +--------+ + +
--- OUTSIDE RECORDS SUMMARY | ~2019-09-02 | XMS | Encounter Summary ---
Demographics + + + | Address | [address] | | | [place] [address] | + + + | Home Phone [...] | | | | | [place] [address] | | + + + + + | Robson Min | ECON | Unknown | | + + + + + | Isabella Whitehead | ECON | Unknown | | + + + + + | Seven Neff | ECON | Unknown | | + + + + + Care Team Providers + +------+ + | Care Manager Programming Name | Role | Phone | + [...] | Abnormal | MD Navdeep | [address] | | | | | chest CT | [address] | [place], | | | | | Procedures | [place] | [place] [address] | | | | | CT Chest wo | [place], | Phone: | | | | | Contrast | [place] [address] | [phone] | | | | | | Phone: | Fax: | | | | | | [phone] | [phone] | | | | | | Fax: | | | | | | | [phone] | | +--------+--------+ + + + + Reason for Visit +--------+ + | Reason | Comments | +--------+ + | COPD | | +--------+ + Encounter Details +--------+---------+ + + + | Date | Type | Department | Care Team | Description | +--------+---------+ + + + | 09/06/ | Office | [facility] | Navdeep Grande, | Abnormal chest CT | | 2013 | Visit | PULMONARY [address] | MD [address] [place] | (Primary Dx); | | | | [address] [place], | [place], [place] | Chronic bronchitis; | | | | [place] [address] | [address] | Other nonspecific | | | | [phone] | | abnormal finding of | | [...] Date Wrist pain Diabetes mellitus, type 2 ([facility]) Vitamin D deficiency Hypercholesterolemia Hypothyroidism Panic anxiety syndrome IBS (irritable bowel syndrome) Restless leg syndrome Urinary hesitancy Lumbago Nocturia Pyoderma gangreosum-LE Bipolar 1 disorder ([facility]) Hypertension Lymphedema Nausea and vomiting Reflux esophagitis GI bleeding Empyema lung ([facility]) 2006 right Knee pain CHRONIC TENSION HEADACHE [...] 4 times daily., Disp: , Rfl: ; xvkhdcbwvm-norlcuq-ryheklyy (BUTALBITA L COMPOUND/ASA) per tablet, One tablet [...] | | | | | [place] | | | | | | [address] | | | | | | | | +--------+---------+ + + + | 11/05/ | Office | Neurology | Tariq, | | 2019 | Visit | | [address] | | | | | | [address] [facility], | | | | | | [place] [address] | | | | | | [phone] | | | | | | | [...] + | MISCELLANEOUS LAB | | | [phone] | + +---------+ + + | MISCELANIOUS LAB | | | [phone] | + +---------+ + + documented in [...]
--- OUTSIDE RECORDS SUMMARY | ~2019-09-02 | XMS | Encounter Summary ---
Demographics + + + | Address | [address] | | | [place] [address] | + + + | Home Phone [...] | | | | | [place] [address] | | + + + + + | Robson Min | ECON | Unknown | | + + + + + | Isabella Whitehead | ECON | Unknown | | + + + + + | Seven Neff | ECON | Unknown | | + + + + + Care Team Providers + +------+ + | Care Household Appliances Service Technician Name | Role | Phone [...] | | | | | GARY [address] [facility] | | | | | | [place], [place] | | | | | | [address] | | | | | | [phone] | | | +--------+ + + + [...] [place] | | | | | | [id number] | | | | | | | | +--------+---------+ + + + | 11/05/ | Office | Neurology | Tariq, | | | 2019 | Visit | | [address]A [address] | | | | | | [address] [place], | | | | | | [place] [address] | | | | | | [phone] | | | | | | | | +--------+---------+ + + + documented as of this encounter Visit Diagnoses Not on filedocumented in this encounter
--- OUTSIDE RECORDS SUMMARY | ~2019-09-02 | XMS | Encounter Summary ---
Demographics + + + | Address | [address] | | | [place] [address] | + + + | Home Phone [...] + + + | Author | [facility] | | | and [place] | + + + | Organization | [facility] | | | [...] | | | | | [place] [address] | | + + + + + | Robson Min | ECON | Unknown | | + + + + + | Isabella Whitehead | ECON | Unknown | | + + + + + | Seven Neff | ECON | Unknown | | + + + + + Care Team Providers + +------+ + | Care Labor Specialist Name | Role | Phone | [...] | | | Pulmonology | obstructive | [address] | [address] | | | | | pulmonary | [address] | [place], | | | | | disease, | [place] | [place] [address] | | | | | unspecified | [address] | Phone: | | | | | ([facility]) | [place] | [phone] | | | | | Procedures | [address] | Fax: | | | | | F/U | Phone: | [phone] | | | | | | [phone] | | +--------+--------+ + + + + Encounter Details +--------+---------+ + + + | Date | Type | Department | Care Team | Description | +--------+---------+ + + + | 05/23/ | Office | [facility] | Navdeep Grande, | COPD, mild (HCC) | | 2016 | Visit | PULMONARY [address] | MD [address] [place] | (Primary Dx); | | | | [place], | [place], [place] | Alveolar | | | | [place] [address] | [address] | hypoventilation; | | | | [phone] | | Tobacco use disorder | +--------+---------+ [...] find a support program: Free national quitline: 641-NAGR-RYL (428-621-6879). Hospital quit-smoking programs. [place] [employer]: (820.421.2598). [place] (966-044-0861). Support at home is important too. Nonsmokers can offer praise and encouragement. If the smo ker in your life finds it hard to quit, encourage them to keep trying! Blzv-zpn-puwcdqq medicines Nicotine replacement therapymay make quittingeasier. Certain [...] Air booklet from the National Cancer Institutehttp://smokefree.gov/si richar/default/files/pdf/bgpknpru-aup-arh-accessible.pdf 0766-6137 [employer]. [address] [place] [address], [place] [id number]. All righ ts reserved. This information is [...] vomiting Reflux esophagitis GI bleeding Empyema lung ([facility]) 2005 right Knee pain CHRONIC [...] mouth 4 times daily., Disp: , Rfl: sgktrxphkh-loaojvy-bpmrwqcw (BUTALBITAL COMPOUND/ASA) per tablet, One tablet by [...] [place] | | | | | | [address] | | | | | | | | +--------+---------+ + + + | 11/05/ | Office | Neurology | Tariq, | | | 2019 | Visit | | [address] | | | | | [address] [place], | | | | | | [place] [address] | | | | | | [phone] | | | | | | | [...]
--- OUTSIDE RECORDS SUMMARY | ~2019-09-02 | XMS | Encounter Summary ---
Demographics + + + | Address | [address] | | | [place] [address] | + + + | Home Phone [...] | | | | | [place] [address] | | + + + + + | Robson Min | ECON | Unknown | | + + + + + | Isabella Whitehead | ECON | Unknown | | + + + + + | Seven Neff | ECON | Unknown | | + + + + + Care Team Providers + +------+ + | Care Health Information Tech Name | Role | Phone | [...] Radiology | Dizziness | DO Laine | [facility] | | | | | Procedures | [address] | | | | | ECHO | [address] | [address] | | | | | Complete | [place] | [place] | | | | | | [place] | [address] | | | | | | [address] | Phone: | | | | | | Phone: | [phone] | | | | | | [phone] | Fax: | | | | | | Fax: | [phone] | | | | | | [phone] | | +--------+--------+ + + + + [...] | | first degree | [place], | [place] | | | | | Procedures | [place] | [address] Phone: | | | | | consult | [address] | [phone] | | | | | | Phone: | Fax: | | | | | | [phone] | [phone] | | | | | | Fax: | | | | | | | [phone] | | + +--------+ + + + + Encounter Details +--------+---------+ + + + | Date | Type | Department | Care Team | Description | +--------+---------+ + + + | 01/03/ | Office | [facility] | Laine Batista DO | Atrioventricular | | 2019 | Visit | CARDIOLOGY [place] | [address] | block (Primary Dx); | | | | [address] | [place], [place] | Dizziness; | | | | [place], [place] | [address] | Palpitations; | | | | [address] | | Hypertension, | | | | [phone] | | unspecified type; | | | [...] Batista DO - 01/03/2019 1:00 PM PDT [facility] Cardiology Cardiology Consult Note Reason for [...] Acid reflux disease Angina pectoris ([facility]) Arrhythmia Bipolar 1 disorder ([facility]) CHRONIC TENSION HEADACHE Classical migraine without mention of intractable migraine Diabetes mellitus, type 2 ([facility]) Empyema lung ([facility]) 2006 right GI bleeding Hypercholesterolemia Hypertension Hypothyroidism IBS (irritable bowel syndrome) Knee pain Lymphedema Myocardial infarction ([facility]) Nausea and vomiting Nocturia Obesity Panic anxiety syndrome Pneumonia Pyoderma gangreosum-LE RA (rheumatoid arthritis) ([facility]) Followed by Dr. Becerra Rheumologist in [place] Reflux esophagitis Restless leg syndrome Urinary [...] Once a week. Continuous Blood Gluc Sensor (Geniuzz HUAN 14 DAY SENSOR) [facility] [DISCONTINUED] ergocalciferol (VITAMIN D-2) 50,000 units capsule [...] mouth 2 times daily. Respiratory Therapy Supplies [facility] Portable oxygen concentrator to provide O2 at [...] [place] | | | | | | [address] | | | | | | | | +--------+---------+ + + + | 11/05/ | Office | Neurology | Tariq, | | | 2019 | Visit | | ANGELA Ven[address]as [address] | | | | | [address] [place], | | | | | | [place] [address] | | | | | | [phone] | | | | | | | [...] | | | | | by [facility] Read [employer], | | | | | | [facility] ([id number]), | | | | | | publications editor Anupam Sanz | | | | | | ([id number]) on 01/03/2019 | | | | | [...]
--- OUTSIDE RECORDS SUMMARY | ~2019-09-02 | XMS | Encounter Summary ---
Demographics + + + | Address | [address] | | | [place] [address] | + + + | Home Phone [...] | | | | | [place] [address] | | + + + + + | Robson Min | ECON | Unknown | | + + + + + | Isabella Whitehead | ECON | Unknown | | + + + + + | Seven Neff | ECON | Unknown | | + + + + + Care Team Providers + +------+ + | Care Vacuum Cleaner Mechanic Name | Role | Phone | + +------+ + | Bart Ba DO | PCP | | + +------+ + Encounter Details +--------+ + + + + | Date | Type | Department | Care Team | Description | +--------+ + + + + | 10/18/ | Hospital | [facility] | Navdeep Grande, | Abnormal chest CT | | 2012 | Encounter | MED CTR XRAY [address] | | | | | [place] | [place] | | | | | [place] [address] | [id number] | | | | | [phone] | | | +--------+ + + + [...] | 0 | 10/08/19 | | | [id number] | every 6 hours as | | [...] [place] | | | | | | [address] | | | | | | | | +--------+---------+ + + + | 11/05/ | Office | Neurology | Tariq, | | | 2019 | Visit | | Theo, [facility] [address] | | | | | | [address] [facility], | | | | | | [place] [address] | | | | | | [phone] | | | | | | | [...] Performed At | + + + | [facility] | [place] | | Department [address] | [facility] | | [ rep [address]] [ rep [facility] | | st zip] Signed | - IMAGING | | | | | Patient Name: CARLINE MIN Physician: | | | RODRI : 1970 Age: 42 Sex: F Unit #: [id number] | | | Exam Date: 10/18/12 Location: [facility] | | | Report #: [id number] Page: | | | %(RAD)RES..mtdd.print.filter("pg") of %(RAD) | | | RES..mtdd.print.filter("tpg") | | | | | | Accession Number: [id number] | | | [facility] [...] Transcribed Date/Time: 10/18/2012 12:20 | | | Soil Sampler: <<Signature on | | | File>> | | | Ace Avery MD10/18/12 1439 <Electronically signed by | | | Ace Avery MD> Ace Avery MD 10/18/12 | | | [address] Soil Sampler: Maria L Mlwplkicafsas89/02/13 1220 | | | [place] MD | | + + + + + + + + | Performing | Address | City/State/Zipcode | Phone Number | | Organization | | | | + + + + + | [facility] | [address] | [place] | [phone] | | [facility] | | [address] | | | - IMAGING | | | | + + + + + documented in this encounter Visit Diagnoses + + | Diagnosis | + + | Abnormal chest CT Nonspecific (abnormal) findings on radiological and other | | examination of other intrathoracic organs | + + documented in this encounter
--- OUTSIDE RECORDS SUMMARY | ~2019-09-02 | XMS | Encounter Summary ---
Demographics + + + | Address | [address] | | | [place] [address] | + + + | Home Phone [...] | | | | | [place] [address] | | + + + + + Care Team Providers + +------+ + | Care Speedometer Mechanic Name | Role | Phone | + +------+ + PCP | Unavailable | + +------+ + Encounter Details +--------+ + + + + | Date | Type | Department | Care Team | Description | +--------+ + + + + | 11/03/ | Respiratory | | Other, Faculty | | | 2006 | Therapy | | [phone] | | +--------+ + + + + [...] [facility] | [address] | [place], [place] | | | DIAGNOSTICS - | [address] | [address] | | | PULMONARY FUNCTION | | | | + + + + + documented in this encounter Visit Diagnoses Not on filedocumented in this encounter"
--- OUTSIDE RECORDS SUMMARY | ~2019-09-02 | XMS | Encounter Summary ---
Demographics + + + | Address | [address] | | | [place] [address] | + + + | Home Phone [...] | | | | | [place] [address] | | + + + + + | Robson Min | ECON | Unknown | | + + + + + | Isabella Whitehead | ECON | Unknown | | + + + + + | Seven Neff | ECON | Unknown | | + + + + + Care Team Providers + +------+ + | Care Resource Recovery Engineer Name | Role | Phone | [...] | | disease, | [place], | [place] [address] | | | | | unspecified | [place] | Phone: | | | | | ([facility]) | [address] | [phone] | | | | | Obstructive | Phone: | Fax: | | | | | sleep apnea | [phone] | [phone] | | | | | (adult) | Fax: | | | | | | (pediatric) | [phone] | | | | | | Procedures [...] + + | 07/18/ | Office | [facility] | Navdeep [place], | COPD exacerbation | | 2019 | Visit | PULMONARY [address] | ([facility]) (Primary Dx); | | | | [place], | [place], [place] | COPD, mild (HCC); | | | | [place] [address] | [address] | Alveolar | | | | [phone] | | hypoventilation; | | | | [...] worse Dizziness or weakness Date Last Reviewed: 12/19/201519990562-2336 [employer]. [address] [place] [address]. All righ ts reserved. This information is [...] Min reports 2 hospitalizations in 2018 at [facility] in [facility]. From the patient's description it so unds [...] Dr. Walker on July 28. Apparently the [employer] removed her IVAPS from the home within [...] Ms. Min apparently was evaluated by her cutter inspector, Dr. Becerra, within the last several weeks in [facility]. No co ncerns were identified regarding [...] 50,000 Units by mouth Once a w [place] Disp: , Rfl: fluticasone-salmeterol (ADVAIR DISKUS) 250-50 [...] have requested to Ms. Min that her non-[place] providers forward copies of their assessments for [...] [place] | | | | | | [address] | | | | | | | | +--------+---------+ + + + | 11/05/ | Office | Neurology | Tariq, | | | 2019 | Visit | | [address]ELA [address] | | | [address], | | | | | | [place] [address] | | | | | | [phone] | | | | | | | [...]
--- OUTSIDE RECORDS SUMMARY | ~2019-09-02 | XMS | Encounter Summary ---
Demographics + + + | Address | [address] | | | [place] [address] | + + + | Home Phone [...] | | | | | [place] [address] | | + + + + + | Robson Escobar | ECON | Unknown | | + + + + + | Isabella Whitehead | ECON | Unknown | | + + + + + | Seven Neff | ECON | Unknown | | + + + + + Care Team Providers + +------+ + | Care Flat Folder Name | Role | Phone | + +------+ + | Herman Ba DO | PCP | | + +------+ + Encounter Details +--------+ + + + + | Date | Type | Department | Care Team | Description | +--------+ + + + + | 09/05/ | Hospital | [facility] | Betsey Connolly DO | Metabolic alkalosis; | | 2015 - | Encounter | [facility] | [address] | Diabetes mellitus, | | | | CLINICAL DECISION | [place] [address] | type 2 (HCC); Drug | | 09/11/ | | [address] | [phone] | overdose, sequela; | | 2014 | | [place], [place] | | Hypokalemia; | | | | [address] | | Hypophosphatemia; | | | | [phone] | | Metabolic | | | | | | encephalopathy; | | | | | | Methamphetamine | | | | | | abuse; Obesity (BMI | | | | | | 30.0-34.9); RA | | | | | | (rheumatoid | | | | | | arthritis) ([facility]); | | | | | | Sinus tachycardia; | | | | | | Seizure ([facility]); Acute | | | | | | respiratory | | | | | | alkalosis; Metabolic | | | | | | acidosis; Acute | | | | | | respiratory failure | | | | | | ([facility]); Hypoxia; | | | | | | Obtundation; Bipolar | | | | | | 2 disorder ([facility]); | | | | | | Current [...] Summaries by Barrington Pride MD at 09/13/14 3895 Author: Barrington Pride MD Service: (none) Author Type: Physician Filed: 09/13/14 1706 Date of Service: 09/13/141644 Status: Signed Jail Guard: Barrington Pride MD (Physician) [facility] Service: Hospitalist Discharge Summary Date of Admission: [...] Follow up: Herman Ba, [address] [place] [address] f/u post hospitalization and WBC to resolution [...] MG per tablet Refills: 0 Generic drug: ocnlpktkwy-ilzsqel-luixjmcc fluticasone-salmeterol 250-50 MCG/DOSE QTY: 2 each Refills: [...] Refills: 0 Commonly known as: 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 You may get the following medications from [...] | 0 | 10/08/19 | | | pynkgbgzuq-rjinwsf-n | every 6 hours as | | [...] 09/11/141850 Date of Service: 09/11/141843 Status: Signed Jail Guard: Lesa Rdz RN (Registered Nurse) Discharge instructions reviewed the patient, she is awaiting her mother to arrive from [facility] to drive her home. IJ line removed, dressing is clean, dry and intact. Will pass on to bulk delivery driver RN that discharge is completed and that pt only needs to be assisted to her [employer] vehicle when her mother arrives.Lesa Rdz RN onver james Transaction, Provider Unknown - 09/11/2014 4:37 PM PDT Progress Notes by Lesa Rdz RN at 09/11/14 1637 Author: Lesa Rdz RN Service: (none) Author Type: Registered Nurse Filed: 09/11/14 1638 Date of Service: 09/11/14 1637 Status: Signed Jail Guard: Lesa Rdz RN (Registered Nurse) Pt cleared for discharge by CRU.Lesa Rdz RN nuradha Botello MS CCC-SOFTWARE INSTALLER - 09/11/2014 1:34 PM PDTFormatting of this note might be differen t from the original. Therapy Progress Note by Anuradha Mendez MA CCC-SOFTWARE INSTALLER at 09/11/14 2983 Author: Anuradha Mendez MA CCC-SOFTWARE INSTALLER Service: (none) Author Type: Speech and Language Pathologist Filed: 09/11/14 3306 Date of Service: 09/11/141333 Status: Signed Jail Guard: Anuradha Mendez MA CCC-SOFTWARE INSTALLER (Speech and Language Pathologist) 09/11/14 1329 Swallowing Assessment Eval Swallowing Treatment Yes Initial [...] 1329 Date of Service: 09/11/141328 Status: Signed Jail Guard: Nik Duarte RPH (Pharmacist) Vancomycin day 2, est crcl 104.3ml/min, awaiting trough level at 0930 09/12 onver james Transaction, Provider Unknown - 09/11/2014 1:16 PM PDT Case Management by EMA De La Vega at 09/11/14 1316 Author: EMA De La Vega Service: (none) Author Type: Fishing Hand Filed: 09/11/14 1320 Date of Service: 09/11/14 1316 Status: Signed Jail Guard: EMA De La Vega (Fishing Hand) Per MD. Pride, "Pt is Medically Cleared [...] Date of Service: 09/10/14 100 Status: Signed Jail Guard: Krystle Sparks RPH (Pharmacist) Clinical Pharmacy Note: [...] 09/10/14900 Date of Service: 09/10/14854 Status: Signed Jail Guard: Jeffy Rahman DO (Physician) PROGRESS NOTE 09/10/2014 [...] by Juan A Marcano RD at 09/09/14 1436 Author: Juan A Marcano RD Service: (none) Author Type: Registered Dietitian Filed: 09/09/14 143 Date of Service: 09/09/141438 Status: Signed Jail Guard: Juan A Marcano RD (Registered Dietitian) 09/09/14 1435 Subjective Timepoint Follow up Pt c/o None [...] / Meals Diabetic maintenance, dental soft per SOFTWARE INSTALLER. Micronutrient Intake Mineral / Element Intake Magnesium [...] Service: Hospitalist Author Type: Physician Filed: 09/09/14 0704 Date of Service: 09/09/141205 Status: Signed Jail Guard: Jeffy Rahman DO (Physician) PROGRESS NOTE 09/09/2014 [...] Notes by Devi Vora RN at 09/09/14 0403 Author: Devi Vora RN Service: (none) Author Type: Registered Nurse Filed: 09/09/14 8555 Date of Service: 09/09/14 477 Status: Signed Jail Guard: Devi Vora RN (Registered Nurse) Pt is alert, oriented x4. She appears withdrawn, sitter at bedside, medication taken withou t difficulty. Pt able to walk to RR with minimal assist, she is able to make needs known, VV S. Devi Vora onver james Transaction, Provider Unknown - 09/08/2014 1:32 PM PDT Nurse Progress Note by Karina Mayer RN at 09/08/14 4391 Author: Karina Mayer RN Service: (none) Author Type: Registered Nurse Filed: 09/08/14 1842 Date of Service: 09/08/14 816 Status: Signed Jail Guard: Karina Mayer RN (Registered Nurse) Report given to MARTHA Deleon. Will transfer pt at this time. onver james Transaction, Provider Unknown - 09/08/2014 1:26 PM PDT Nurse Progress Note by Karina Mayer RN at 09/08/14 1326 Author: Karina Mayer RN Service: (none) Author Type: Registered Nurse Filed: 09/08/14 1327 Date of Service: 09/08/14 1326 Status: Signed Jail Guard: Karina Mayer RN (Registered Nurse) Attempted to start peripheral IV. Attempt unsuccessful. onver james Transaction, Provider Unknown - 09/08/2014 1:04 PM PDT Case Management by EMA Verma at 09/08/14 1304 Author: EMA Verma Service: (none) Author Type: Fishing Hand Filed: 09/08/14 1311 Date of Service: 09/08/14 1304 Status: Signed Jail Guard: EMA Verma (Fishing Hand) 09/08/14 1303 Discharge Planning Evaluation Admitting Diagnosis [...] Prescription Plan Yes Name of Pharmacy [facility] [place] Anticipated Disposition Facility Type Home Met with: [...] I explaine d process for CRU to [facility] and determine disposition. Patient states that her mother can stay with her 09/11 after d/c which is what might be required by CRU as a contract. Pt has a son in [place] and a sister in [place]. Await CRU to [facility]. Patient's PCP is: HERMAN BA Patient's insurance:[facility] Coverage concerns: Medication coverage/concerns: Lisandra'augusto Bedside Delivery: Community resources utilized / needed: Assistance in transportation: Mother can transport Identification of any specific education / training: Barriers to Discharge / Alternative housing needed: Anticipated DCP: CRU to evalAngelita Diehl Laurie Esteban MS CCC-SOFTWARE INSTALLER - 09/08/2014 10:45 AM PDTFormatting of this note might be different fr om the original. Therapy Progress Note by Laurie Steen MS CCC-SOFTWARE INSTALLER at 09/08/14 1045 Author: Laurie Steen MS CCC-SOFTWARE INSTALLER Service: (none) Author Type: Speech Therapist Filed: 09/08/14 1115 Date of Service: 09/08/141044 Status: Signed Jail Guard: Laurie Steen MS CCC-SOFTWARE INSTALLER (Speech Therapist) 09/08/141044 Swallowing Assessment Eval Swallowing [...] Swallow strategies;Diet tolerance monitoring;Patient/Family education Dysphagia Goals Sand Conditioner Machine Goals Safe/efficient oral intake Pt will have safe/efficient oral intake Regular diet;New/revised goal;With min cues Short Term Goals Tolerate diet Pt will tolerate diet Dental soft;New/revised goal;With min supervision omie Brown ARNP - 09/08/2014 6:44 AM PDTFormatting of this note might be different from the o riginal. Progress Notes by DEEJAY Astorga at 09/08/1444 Author: DEEJAY Astorga Service: Retirement Actuary Author Type: Nurse Practitioner Filed: 09/08/14 1248 Date of Service: 09/08/14643 Status: Signed Jail Guard: DEEJAY Astorga (Nurse Practitioner) [facility] Service: Retirement Actuary Progress Note Kait Escobar 44 [facility] [...] by family members to the ED in [place] on 09/04. 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 Glucose was [...] acid, but again, level normal. Discussed with admin dir at [employer] trol. Could possibly be d/t methamphetamine intoxication. [...] 0028 Date of Service: 09/08/1422 Status: Signed Jail Guard: Beth Huang RN (Registered Nurse) RN talking with pt during midnight reassessment found pt to have increased RR and anxious.R N talked with pt about slow deep breathing, RN talked with pt and asked if she knew why she was in the hospital, pt stated that she remembers taking "a lot" of hydrocodone for a drug overdose, however doesn't remember how much. conference and event organiser notified. 1mg ativan ordered Q4 for anxiety at this time. Will continue to monitor. Beth Huang RN onver james Transaction, Provider Unknown - 09/07/2014 9:14 PM PDT Nurse Progress Note by Beth Huang RN at 09/07/142113 Author: Beth Huang RN Service: (none) Author Type: Registered Nurse Filed: 09/07/142114 Date of Service: 09/07/142113 Status: Signed Jail Guard: Beth Huang RN (Registered Nurse) Per day Shift RN Pt is NPO d/t coughing and choking on water post extubation, RN stated pt is ok to have ice chips but no oral medications at this time. Will continue to monitor. Shaniqua Huang RN onver james Transaction, Provider Unknown - 09/07/2014 2:04 PM PDT Case Management by EMA Verma at 09/07/148 Author: EMA Verma Service: (none) Author Type: Fishing Hand Filed: 09/07/141404 Date of Service: 09/07/141403 Status: Signed Jail Guard: EMA Verma (Fishing Hand) Placed t/c to pt's son Robson [phone] . He is on his way into [...] Notes by Tyler Edwards MD at 09/07/14 2314 Author: Tyler Edwards MD Service: Nephrology Author Type: Physician Filed: 09/07/14 1351 Date of Service: 09/07/141348 Status: Signed Jail Guard: Tyler Edwards MD (Physician) Noted Normalization of Cr and electrolytes. Bp is controlled and ACID BASE IS improved. Pt was not examined. Will Sign off at this time . Should be there any concerns , please call with questions or reconsult. lisa, Casper Cox MD - 09/07/2014 1:38 PM PDT Progress Notes by Casper Rollins MD at 09/07/141 Author: Casper Rollins MD Service: Retirement Actuary Author Type: Retirement Actuary Filed: 09/07/14 2895 Date of Service: 09/07/141337 Status: Signed Jail Guard: Casper Rollins MD (Physician) [facility] Service: Retirement Actuary Progress Note Kait Escobar 44 y.o[facility] Hospital [...] by family members to the ED in [place] on 09/04. 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 Glucose was [...] acid, but again, level normal. Discussed with admin dir at [employer] [facility]. Could possibly be d/t methamphetamine intoxication. Unknown [...] 1432 Date of Service: 09/06/141420 Status: Signed Jail Guard: Mary Mclean RN (Registered Nurse) Patient seen today by glass decorator for evaluation due to low Pablo. Today's [...] Date of Service: 09/06/14 111 Status: Signed Jail Guard: Angela Saenz RD, CD (Registered Dietitian) 09/06/14 [...] Estimated Energy Needs Total Energy Estimated Needs 9978-9737 kcal/day Method for Estimating Needs 22-25 kcal/kg [...] 09/06/14420 Date of Service: 09/06/14419 Status: Signed Jail Guard: Justina Reyes RN (Registered Nurse) Unable to complete pt admission documentation d/t pt family not present and pt is intubated . Thank you. onroberto ramirez Transaction, Provider Unknown - 09/06/2014 2:08 AM PDT Progress Notes by Nelson Mayer RPH at 09/06/14207 Author: Nelson Mayer RPH Service: (none) Author Type: Pharmacist Filed: 09/06/14207 Date of Service: 09/06/14207 Status: Signed Jail Guard: Nelson Mayer RPH (Pharmacist) Note ccl 91.7ml/min [...] [place] | | | | | | [address] | | | | | | | | +--------+---------+ + + + | 11/05/ | Office | Neurology | Tariq, | | | 2019 | Visit | | ANGELA [address] | | | | | | [address] [facility] [place] [place], | | | | | | [place] [address] | | | | | | [phone] | | | | | | | [...] | | | Fingerstick | performed at [facility];[address] | | LAB | | | | [address];[place] | | | | | | [address] | | | | + + + [...] | | | Fingerstick | performed at [facility];[address] | | LAB | | | | [address];[place], [place] | | | | | | [address] | | | | + + + [...] | | | Fingerstick | performed at [facility];[address] | | LAB | | | | [address];[place] | | | | | | [address] | | | | + + + [...] EXTERNAL | | | | performed at [facility];[address] | | LAB | | | | [address];[place] | | | | | | [address] | | | | + + + [...] | | | | | | at [facility];[address] [place] [address] | | | | | | [facility];[place] [address] | | | | + + + [...] K/uL | LAB | | | | [facility], [address] | | | | | | [place] | | | | | | [address] | | | | + + + + + + | Red Blood | 3.52 (L)Comment: Testing | 3.70 - 5.10 | EXTERNAL | | | Cells | performed at [facility], [address] | M/uL | LAB | | | Counted | [address], | | | | | | [place] [address] | | | | + + + + + + | Hemoglobin | 11.4Comment: Testing | 11.3 - 15.5 | EXTERNAL | | | | performed at [facility], [address] | g/dL | LAB | | | | [address], | | | | | | [place] [address] | | | | + + + + + + | Hematocrit, | 34.9Comment: Testing | 34.0 - 46.0 % | EXTERNAL | | | POC | performed at [facility], [address] | | LAB | | | | [address], | | | | | | [place] [address] | | | | + + + + + + | MCV | 99.0Comment: Testing | 80.0 - 100.0 fl | EXTERNAL | | | | performed at [facility], [address] | | LAB | | | | [address], | | | | | | [place] [address] | | | | + + + + + + | MCH | 32.4Comment: Testing | 27.0 - 34.0 pg | EXTERNAL | | | | performed at [facility], [address] | | LAB | | | | [address], | | | | | | [place] [address] | | | | + + + + + + | MCHC | 32.7Comment: Testing | 32.0 - 35.5 | EXTERNAL | | | | performed at [facility], [address] | g/dL | LAB | | | | [address], | | | | | | [place] [address] | | | | + + + + + + | RDW-CV | 55.6 (H)Comment: Testing | 37 - 53 fl | EXTERNAL | | | | performed at [facility], [address] | | LAB | | | | [address], | | | | | | [place] [address] | | | | + + + + + + | Platelet | 250Comment: Testing | 150 - 400 K/uL | EXTERNAL | | | Count | performed at [facility], [address] | | LAB | | | Plasma | [address], | | | | | | [place] [address] | | | | + + + + + + | MPV | 8.8Comment: Testing | fl | EXTERNAL | | | | performed at [facility], [address] | | LAB | | | | [address], | | | | | | [place] [address] | | | | + + + + + + | Differentia | AUTOMATEDComment: | | EXTERNAL | | | l Type | Testing performed at | | LAB | | | | [facility], [address] | | | | | | [place] | | | | | | [address] | | | | + + + + + + | % Segmented | 65.20Comment: Testing | % | EXTERNAL | | | | performed at [facility], [address] | | LAB | | | Neutrophils | [address], | | | | | | [place] [address] | | | | + + + + + + | % | 19.01Comment: Testing | % | EXTERNAL | | | Lymphocytes | performed at [facility], [address] | | LAB | | | | [address], | | | | | | [place] [address] | | | | + + + + + + | % Monocytes | 13.64Comment: Testing | % | EXTERNAL | | | | performed at [facility], [address] | | LAB | | | | [address], | | | | | | [place] [address] | | | | + + + + + + | % | 1.60Comment: Testing | % | EXTERNAL | | | Eosinophils | performed at [facility], [address] | | LAB | | | | [address], | | | | | | [place] [address] | | | | + + + + + + | % Basophils | 0.55Comment: Testing | % | EXTERNAL | | | | performed at [facility], [address] | | LAB | | | [address], | | | | | | [place] [address] | | | | + + + + + + | Absolute | 7.60 (H)Comment: Testing | 1.90 - 7.40 | EXTERNAL | | | Segmented | performed at [facility], [address] | K/uL | LAB | | | Neutrophils | [address], | | | | | | [place] [address] | | | | + + + + + + | Absolute | 2.22Comment: Testing | 1.00 - 3.90 | EXTERNAL | | | Lymphocytes | performed at [facility], [address] | K/uL | LAB | | | | [address], | | | | | | [place] [address] | | | | + + + + + + | Absolute | 1.59 (H)Comment: Testing | 0.00 - 0.80 | EXTERNAL | | | Monocytes | performed at [facility], [address] | K/uL | LAB | | | | [address], | | | | | | [place] [address] | | | | + + + + + + | Absolute | 0.19Comment: Testing | 0.00 - 0.50 | EXTERNAL | | | Eosinophils | performed at [facility], [address] | K/uL | LAB | | | | [address], | | | | | | [place] [address] | | | | + + + + + + | Absolute | 0.07Comment: Testing | 0.00 - 0.10 | EXTERNAL | | | Basophils | performed at [facility], [address] | K/uL | LAB | | | | [address], | | | | | | [place] [address] | | | | + + + [...] EXTERNAL | | | | performed at [facility];8 | | LAB | | | | [address];[place], [place] | | | | | | [address] | | | | + + + [...] EXTERNAL | | | | performed at [facility];[address] | | LAB | | | | [address];[place], [place] | | | | | | [address] | | | | + + + [...] EXTERNAL | | | | performed at [facility];[address] | mmol/L | LAB | | | | [address];[place] | | | | | | [address] | | | | + + + + + + | K | 3.8Comment: Testing | 3.5 - 4.9 | EXTERNAL | | | | performed at [facility];[address] | mmol/L | LAB | | | | [address];[place] | | | | | | [address] | | | | + + + + + + | Cl | 101Comment: Testing | 99 - 109 mmol/L | EXTERNAL | | | | performed at [facility];[address] | | LAB | | | | [address];[place] | | | | | | [address] | | | | + + + + + + | CO2 | 29Comment: Testing | 23 - 32 mmol/L | EXTERNAL | | | | performed at [facility];[address] | | LAB | | | | [address];[place] | | | | | | [address] | | | | + + + + + + | Anion Gap | 11Comment: Testing | 5 - 20 mmol/L | EXTERNAL | | | | performed at [facility];[address] | | LAB | | | | [address];[place] | | | | | | [address] | | | | + + + + + + | Glucose, | 184 (H)Comment: Testing | 65 - 99 mg/dL | EXTERNAL | | | Fasting | performed at [facility];[address] | | LAB | | | | [address];[place] | | | | | | [address] | | | | + + + + + + | BUN | 10Comment: Testing | 8 - 25 mg/dL | EXTERNAL | | | | performed at [facility];[address] | | LAB | | | | [address];[place] | | | | | | [address] | | | | + + + + + + | Creatinine | 0.82Comment: Testing | 0.50 - 1.00 | EXTERNAL | | | | performed at [facility];[address] | mg/dL | LAB | | | | [address];[place] | | | | | | [address] | | | | + + + + + + | BUN/Creatin | 12Comment: Testing | | EXTERNAL | | | ine Ratio | performed at [facility];[address] | | LAB | | | | [address];[place] | | | | | | [address] | | | | + + + + + + | Calcium | 9.1Comment: Testing | 8.5 - 10.5 | EXTERNAL | | | | performed at [facility];[address] | mg/dL | LAB | | | | [address];[place] | | | | | | [address] | | | | + + + [...] | | | | | | at [facility];[address];[place] [address] | | | | + + + [...] | | | Fingerstick | performed at [facility];[address] | | LAB | | | | [address];[place] | | | | | | [address] | | | | + + + [...] | | | Fingerstick | performed at [facility];[address] | | LAB | | | | [address];[place], [place] | | | | | | [address] | | | | + + + [...] | | | | | [place] [address] | | | | + + + + + + | Clarity | CLEARComment: Testing | | EXTERNAL | | | | performed at [facility], [address] | | LAB | | | | [address], | | | | | | [place] [address] | | | | + + + + + + | Specific | 1.007Comment: Testing | 1.002 - 1.030 | EXTERNAL | | | [place], | performed at [facility], [address] | | LAB | | | Urine | [address], | | | | | | [place] [address] | | | | + + + + + + | Leukocyte | SMALL (A)Comment: | | EXTERNAL | | | Esterase, | Testing performed at | | LAB | | | Urine | [facility], [address] [facility] | | | | | | [place] | | | | | | [address] | | | | + + + + + + | Nitrite, | NEGATIVEComment: Testing | | EXTERNAL | | | Urine | performed at [facility], [address] | | LAB | | | | [address], | | | | | | [place] [address] | | | | + + + + + + | Urobilinoge | 0.2Comment: Testing | mg/dL | EXTERNAL | | | n, Urine | performed at [facility], [address] | | LAB | | | | [address], | | | | | | [place] [address] | | | | + + + + + + | Protein, | NEGATIVEComment: Testing | mg/dL | EXTERNAL | | | Urine | performed at [facility], [address] | | LAB | | | | [address], | | | | | | [place] [address] | | | | + + + + + + | pH, Urine | 7.0Comment: Testing | 5.0 - 8.0 | EXTERNAL | | | | performed at [facility], [address] | | LAB | | | | [address], | | | | | | [place] [address] | | | | + + + + + + | Blood, | MODERATE (A)Comment: | | EXTERNAL | | | Urine | Testing performed at | | LAB | | | | [facility], [address] | | | | | | [place] | | | | | | [address] | | | | + + + + + + | Ketones | NEGATIVEComment: Testing | mg/dL | EXTERNAL | | | | performed at [facility], [address] | | LAB | | | | [address], | | | | | | [place] [address] | | | | + + + + + + | Bilirubin, | NEGATIVEComment: Testing | | EXTERNAL | | | Urine | performed at [facility], [address] | | LAB | | | | [address], | | | | | | [place] [address] | | | | + + + + + + | Glucose, | NEGATIVEComment: Testing | mg/dL | EXTERNAL | | | Urine | performed at [facility], [address] | | LAB | | | | [address], | | | | | | [place] [address] | | | | + + + [...] EXTERNAL | | | | performed at [facility], [address] | | LAB | | | | [address], | | | | | | [place] [address] | | | | + + + + + + | RBC, UA | 1-5Comment: Testing | 0 - 5 /hpf | EXTERNAL | | | | performed at [facility], [address] | | LAB | | | | [address], | | | | | | [place] [address] | | | | + + + + + + | Epithelial | 16-25Comment: Testing | /lpf | EXTERNAL | | | Cells | performed at [facility], [address] | | LAB | | | | [address], | | | | | | [place] [address] | | | | + + + + + + | Bacteria, | 1+ (A)Comment: Testing | | EXTERNAL | | | UA | performed at [facility], [address] | | LAB | | | | [address], | | | | | | [place] [address] | | | | + + + + + + | Urinalysis | LESS THAN 10 ML | | EXTERNAL | | | Comments | SPECIMENComment: CULTURE | | LAB | | | | TO FOLLOWTesting | | | | | | performed at [facility], [address] | | | | | | [address], | | | | | | [place] [address] | | | | + + + [...] GROWTH | | | Testing performed at [facility], | | | [address] [place] [address] | | + + + + +---------+ [...] | | | Fingerstick | performed at [facility];[address] | | LAB | | | | [address];[place] | | | | | | [address] | | | | + + + [...] AC | | | Testing performed at [facility];[address] | | | [address];[place] [address] CULTURE | | | NO GROWTH | | | Testing performed at [facility], [address], [place], [place] | | | [address] | | + + + + +---------+ [...] AC | | | Testing performed at [facility];[address] | [address];[place] [address] CULTURE | | | NO GROWTH | | | Testing performed at [facility], [address], [place], [place] | | | [address] | | + + + + +---------+ [...] K/uL | LAB | | | | [facility], [address] | | | | | | [place] | | | | | | [address] | | | | + + + + + + | Red Blood | 3.66 (L)Comment: Testing | 3.70 - 5.10 | EXTERNAL | | | Cells | performed at [facility], [address] | M/uL | LAB | | | Counted | [address], | | | | | | [place] [address] | | | | + + + + + + | Hemoglobin | 11.8Comment: Testing | 11.3 - 15.5 | EXTERNAL | | | | performed at [facility], [address] | g/dL | LAB | | | | [address], | | | | | | [place] [address] | | | | + + + + + + | Hematocrit, | 36.2Comment: Testing | 34.0 - 46.0 % | EXTERNAL | | | POC | performed at [facility], [address] | | LAB | | | | [address], | | | | | | [place] [address] | | | | + + + + + + | MCV | 98.8Comment: Testing | 80.0 - 100.0 fl | EXTERNAL | | | | performed at [facility], [address] | | LAB | | | | [address], | | | | | | [place] [address] | | | | + + + + + + | MCH | 32.1Comment: Testing | 27.0 - 34.0 pg | EXTERNAL | | | | performed at [facility], [address] | | LAB | | | | [address], | | | | | | [place] [address] | | | | + + + + + + | MCHC | 32.5Comment: Testing | 32.0 - 35.5 | EXTERNAL | | | | performed at [facility], [address] | g/dL | LAB | | | | [address], | | | | | | [place] [address] | | | | + + + + + + | RDW-CV | 53.8 (H)Comment: Testing | 37 - 53 fl | EXTERNAL | | | | performed at [facility], [address] | | LAB | | | | [address], | | | | | | [place] [address] | | | | + + + + + + | Platelet | 267Comment: Testing | 150 - 400 K/uL | EXTERNAL | | | Count | performed at [facility], [address] | | LAB | | | Plasma | [address], | | | | | | [place] [address] | | | | + + + + + + | MPV | 8.2Comment: Testing | fl | EXTERNAL | | | | performed at [facility], [address] | | LAB | | | | [address], | | | | | | [place] [address] | | | | + + + + + + | Differentia | AUTOMATEDComment: | | EXTERNAL | | | l Type | Testing performed at | | LAB | | | | [facility], [address] | | | | | | [place] | | | | | | [address] | | | | + + + + + + | % Segmented | 69.45Comment: Testing | % | EXTERNAL | | | | performed at [facility], [address] | | LAB | | | Neutrophils | [address], | | | | | | [place] [address] | | | | + + + + + + | % | 17.19Comment: Testing | % | EXTERNAL | | | Lymphocytes | performed at [facility], [address] | | LAB | | | | [address], | | | | | | [place] [address] | | | | + + + + + + | % Monocytes | 11.54Comment: Testing | % | EXTERNAL | | | | performed at [facility], [address] | | LAB | | | | [address], | | | | | | [place] [address] | | | | + + + + + + | % | 1.49Comment: Testing | % | EXTERNAL | | | Eosinophils | performed at [facility], [address] | | LAB | | | | [address], | | | | | | [place] [address] | | | | + + + + + + | % Basophils | 0.33Comment: Testing | % | EXTERNAL | | | | performed at [facility], [address] | | LAB | | | | [address], | | | | | | [place], [place] [address] | | | | + + + + + + | Absolute | 8.64 (H)Comment: Testing | 1.90 - 7.40 | EXTERNAL | | | Segmented | performed at [facility], [address] | K/uL | LAB | | | Neutrophils | [address], | | | | | | [place], [place] [address] | | | | + + + + + + | Absolute | 2.14Comment: Testing | 1.00 - 3.90 | EXTERNAL | | | Lymphocytes | performed at [facility], [address] | K/uL | LAB | | | | [address], | | | | | | [place] [address] | | | | + + + + + + | Absolute | 1.44 (H)Comment: Testing | 0.00 - 0.80 | EXTERNAL | | | Monocytes | performed at [facility], [address] | K/uL | LAB | | | | [address], | | | | | | [place] [address] | | | | + + + + + + | Absolute | 0.19Comment: Testing | 0.00 - 0.50 | EXTERNAL | | | Eosinophils | performed at [facility], [address] | K/uL | LAB | | | | [address], | | | | | | [place] [address] | | | | + + + + + + | Absolute | 0.04Comment: Testing | 0.00 - 0.10 | EXTERNAL | | | Basophils | performed at [facility], [address] | K/uL | LAB | | | | [address], | | | | | | [place] [address] | | | | + + + [...] | | | | | [place] [address] | | | | + + + [...] EXTERNAL | | | | performed at [facility], [address] | | LAB | | | | [address], | | | | | | [place] [address] | | | | + + + [...] | | | | | [place] [address] | | | | + + + + + + | K | 3.8Comment: Testing | 3.5 - 4.9 | EXTERNAL | | | | performed at [facility], [address] | mmol/L | LAB | | | | [address], | | | | | | [place] [address] | | | | + + + + + + | Cl | 99Comment: Testing | 99 - 109 mmol/L | EXTERNAL | | | | performed at [facility], [address] | | LAB | | | | [address], | | | | | | [place] [address] | | | | + + + + + + | CO2 | 30Comment: Testing | 23 - 32 mmol/L | EXTERNAL | | | | performed at [facility], [address] | | LAB | | | | [address], | | | | | | [place] [address] | | | | + + + + + + | Anion Gap | 7Comment: Testing | 5 - 20 mmol/L | EXTERNAL | | | | performed at [facility], [address] | | LAB | | | | [address], | | | | | | [place] [address] | | | | + + + + + + | Glucose, | 222 (H)Comment: Testing | 65 - 99 mg/dL | EXTERNAL | | | Fasting | performed at [facility], [address] | | LAB | | | | [address], | | | | | | [place] [address] | | | | + + + + + + | BUN | 12Comment: Testing | 8 - 25 mg/dL | EXTERNAL | | | | performed at [facility], [address] | | LAB | | | | [address], | | | | | | [place] [address] | | | | + + + + + + | Creatinine | 0.83Comment: Testing | 0.50 - 1.00 | EXTERNAL | | | | performed at [facility], [address] | mg/dL | LAB | | | | [address], | | | | | | [place] [address] | | | | + + + + + + | BUN/Creatin | 14Comment: Testing | | EXTERNAL | | | ine Ratio | performed at [facility], [address] | | LAB | | | | [address], | | | | | | [place] [address] | | | | + + + + + + | Calcium | 9.0Comment: Testing | 8.5 - 10.5 | EXTERNAL | | | | performed at [facility], [address] | mg/dL | LAB | | | | [address], | | | | | | [place] [address] | | | | + + + [...] W | | | | | | [address], | | | | | | [place] [address] | | | | + + + [...] | | | Fingerstick | performed at [facility];[address] | | LAB | | | | [address];[place] | | | | | | [address] | | | | + + + [...] | | | Fingerstick | performed at [facility];[address] | | LAB | | | | [address];[place], [place] | | | | | | [address] | | | | + + + [...] | | | Fingerstick | performed at [facility] | | LAB | | | | [address];[place], [place] | | | | | | [address] | | | | + + + [...] | | | Fingerstick | performed at [facility];[address] | | LAB | | | | [address];[place] | | | | | | [address] | | | | + + + [...] | | | Fingerstick | performed at [facility];[address] | | LAB | | | | [place] [place];[place] | | | | | | [address] | | | | + + + [...] EXTERNAL | | | | performed at [facility], [address] | K/uL | LAB | | | | [address], | | | | | | [place] [address] | | | | + + + + + + | Red Blood | 3.65 (L)Comment: Testing | 3.70 - 5.10 | EXTERNAL | | | Cells | performed at [facility], [address] | M/uL | LAB | | | Counted | [address], | | | | | | [place] [address] | | | | + + + + + + | Hemoglobin | 11.8Comment: Testing | 11.3 - 15.5 | EXTERNAL | | | | performed at [facility], [address] | g/dL | LAB | | | [address], | | | | | | [place] [address] | | | | + + + + + + | Hematocrit, | 36.1Comment: Testing | 34.0 - 46.0 % | EXTERNAL | | | POC | performed at [facility], [address] | | LAB | | | | [address], | | | | | | [place] [address] | | | | + + + + + + | MCV | 98.7Comment: Testing | 80.0 - 100.0 fl | EXTERNAL | | | | performed at [facility], [address] | | LAB | | | | [address], | | | | | | [place] [address] | | | | + + + + + + | MCH | 32.4Comment: Testing | 27.0 - 34.0 pg | EXTERNAL | | | | performed at [facility], [address] | | LAB | | | | [address], | | | | | | [place] [address] | | | | + + + + + + | MCHC | 32.8Comment: Testing | 32.0 - 35.5 | EXTERNAL | | | | performed at [facility], [address] | g/dL | LAB | | | | [address], | | | | | | [place] [address] | | | | + + + + + + | RDW-CV | 53.8 (H)Comment: Testing | 37 - 53 fl | EXTERNAL | | | | performed at [facility], [address] | | LAB | | | | [address], | | | | | | [place] [address] | | | | + + + + + + | Platelet | 280Comment: Testing | 150 - 400 K/uL | EXTERNAL | | | Count | performed at [facility], [address] | | LAB | | | Plasma | [address], | | | | | | [place] [address] | | | | + + + + + + | MPV | 7.8Comment: Testing | fl | EXTERNAL | | | | performed at [facility], [address] | | LAB | | | | [address], | | | | | | [place] [address] | | | | + + + + + + | Differentia | AUTOMATEDComment: | | EXTERNAL | | | l Type | Testing performed at | | LAB | | | | [facility], [address] | | | | | | [place] | | | | | | [address] | | | | + + + + + + | % Segmented | 62.96Comment: Testing | % | EXTERNAL | | | | performed at [facility], [address] | | LAB | | | Neutrophils | [address], | | | | | | [place] [address] | | | | + + + + + + | % | 22.27Comment: Testing | % | EXTERNAL | | | Lymphocytes | performed at [facility], [address] | | LAB | | | | [address], | | | | | | [place] [address] | | | | + + + + + + | % Monocytes | 11.29Comment: Testing | % | EXTERNAL | | | | performed at [facility], [address] | | LAB | | | | [address], | | | | | | [place] [address] | | | | + + + + + + | % | 3.04Comment: Testing | % | EXTERNAL | | | Eosinophils | performed at [facility], [address] | | LAB | | | | [address], | | | | | | [place] [address] | | | | + + + + + + | % Basophils | 0.44Comment: Testing | % | EXTERNAL | | | | performed at [facility], [address] | | LAB | | | | [address], | | | | | | [place] [address] | | | | + + + + + + | Absolute | 6.07Comment: Testing | 1.90 - 7.40 | EXTERNAL | | | Segmented | performed at [facility], [address] | K/uL | LAB | | | Neutrophils | [address], | | | | | | [place] [address] | | | | + + + + + + | Absolute | 2.15Comment: Testing | 1.00 - 3.90 | EXTERNAL | | | Lymphocytes | performed at [facility], [address] | K/uL | LAB | | | | [address], | | | | | | [place] [address] | | | | + + + + + + | Absolute | 1.09 (H)Comment: Testing | 0.00 - 0.80 | EXTERNAL | | | Monocytes | performed at [facility], [address] | K/uL | LAB | | | | [address], | | | | | | [place] [address] | | | | + + + + + + | Absolute | 0.29Comment: Testing | 0.00 - 0.50 | EXTERNAL | | | Eosinophils | performed at [facility], [address] | K/uL | LAB | | | | [address], | | | | | | [place] [address] | | | | + + + + + + | Absolute | 0.04Comment: Testing | 0.00 - 0.10 | EXTERNAL | | | Basophils | performed at [facility], [address] | K/uL | LAB | | | | [address], | | | | | | [place] [address] | | | | + + + [...] EXTERNAL | | | | performed at [facility], [address] | | LAB | | | | [address], | | | | | | [place] [address] | | | | + + + [...] | | | | | [place] [address] | | | | + + + [...] | | | | | [place] [address] | | | | + + + + + + | K | 4.3Comment: Testing | 3.5 - 4.9 | EXTERNAL | | | | performed at [facility], [address] | mmol/L | LAB | | | | [address], | | | | | | [place] [address] | | | | + + + + + + | Cl | 99Comment: Testing | 99 - 109 mmol/L | EXTERNAL | | | | performed at [facility], [address] | | LAB | | | | [address], | | | | | | [place] [address] | | | | + + + + + + | CO2 | 28Comment: Testing | 23 - 32 mmol/L | EXTERNAL | | | | performed at [facility], [address] | | LAB | | | | [address], | | | | | | [place] [address] | | | | + + + + + + | Anion Gap | 10Comment: Testing | 5 - 20 mmol/L | EXTERNAL | | | | performed at [facility], [address] | | LAB | | | | [address], | | | | | | [place] [address] | | | | + + + + + + | Glucose, | 174 (H)Comment: Testing | 65 - 99 mg/dL | EXTERNAL | | | Fasting | performed at [facility], [address] | | LAB | | | | [address], | | | | | | [place] [address] | | | | + + + + + + | BUN | 15Comment: Testing | 8 - 25 mg/dL | EXTERNAL | | | | performed at [facility], [address] | | LAB | | | | [address], | | | | | | [place] [address] | | | | + + + + + + | Creatinine | 0.77Comment: Testing | 0.50 - 1.00 | EXTERNAL | | | | performed at [facility], [address] | mg/dL | LAB | | | | [address], | | | | | | [place] [address] | | | | + + + + + + | BUN/Creatin | 19Comment: Testing | | EXTERNAL | | | ine Ratio | performed at [facility], [address] | | LAB | | | | [address], | | | | | | [place] [address] | | | | + + + + + + | Calcium | 8.9Comment: Testing | 8.5 - 10.5 | EXTERNAL | | | | performed at [facility], [address] | mg/dL | LAB | | | | [address], | | | | | | [place] [address] | | | | + + + [...] | | | | | | at [facility], [address] | | | | | | [address], | | | | | | [place] [address] | | | | + + + [...] | | | Fingerstick | performed at [facility];[address] | | LAB | | | | [address];[place], [place] | | | | | | [address] [...] | | | Fingerstick | performed at [facility];[address] | | LAB | | | | [address];[place] | | | | | | [address] | | | | + + + [...] EXTERNAL | | | | performed at [facility];[address] | | LAB | | | | [address];[place], [place] | | | | | | [address] | | | | + + + [...] | | | Fingerstick | performed at [facility];[address] | | LAB | | | | [place];[place] | | | | | | [address] | | | | + + + [...] | | | Fingerstick | performed at [facility];[address] | | LAB | | | | [address];[place], [place] | | | | | | [address] | | | | + + + [...] | | | | | [place] [address] | | | | + + + + + + | Red Blood | 3.62 (L)Comment: Testing | 3.70 - 5.10 | EXTERNAL | | | Cells | performed at [facility], [address] | M/uL | LAB | | | Counted | [address], | | | | | | [place] [address] | | | | + + + + + + | Hemoglobin | 11.8Comment: Testing | 11.3 - 15.5 | EXTERNAL | | | | performed at [facility], [address] | g/dL | LAB | | | | [address], | | | | | | [place] [address] | | | | + + + + + + | Hematocrit, | 36.1Comment: Testing | 34.0 - 46.0 % | EXTERNAL | | | POC | performed at [facility], [address] | | LAB | | | | [address], | | | | | | [place] [address] | | | | + + + + + + | MCV | 99.7Comment: Testing | 80.0 - 100.0 fl | EXTERNAL | | | | performed at [facility], [address] | | LAB | | | [address], | | | | | | [place] [address] | | | | + + + + + + | MCH | 32.5Comment: Testing | 27.0 - 34.0 pg | EXTERNAL | | | | performed at [facility], [address] | | LAB | | | | [address], | | | | | | [place] [address] | | | | + + + + + + | MCHC | 32.6Comment: Testing | 32.0 - 35.5 | EXTERNAL | | | | performed at [facility], [address] | g/dL | LAB | | | | [address], | | | | | | [place] [address] | | | | + + + + + + | RDW-CV | 54.7 (H)Comment: Testing | 37 - 53 fl | EXTERNAL | | | | performed at [facility], [address] | | LAB | | | | [address], | | | | | | [place] [address] | | | | + + + + + + | Platelet | 289Comment: Testing | 150 - 400 K/uL | EXTERNAL | | | Count | performed at [facility], [address] | | LAB | | | Plasma | [address], | | | | | | [place] [address] | | | | + + + + + + | MPV | 7.4Comment: Testing | fl | EXTERNAL | | | | performed at [facility], [address] | | LAB | | | | [address], | | | | | | [place] [address] | | | | + + + + + + | Differentia | AUTOMATEDComment: | | EXTERNAL | | | l Type | Testing performed at | | LAB | | | | [facility], [address] | | | | | | [place] | | | | | | [address] | | | | + + + + + + | % Segmented | 53.91Comment: Testing | % | EXTERNAL | | | | performed at [facility], [address] | | LAB | | | Neutrophils | [address], | | | | | | [place] [address] | | | | + + + + + + | % | 26.30Comment: Testing | % | EXTERNAL | | | Lymphocytes | performed at [facility], [address] | | LAB | | | | [address], | | | | | | [place] [address] | | | | + + + + + + | % Monocytes | 15.80Comment: Testing | % | EXTERNAL | | | | performed at [facility], [address] | | LAB | | | | [address], | | | | | | [place] [address] | | | | + + + + + + | % | 3.35Comment: Testing | % | EXTERNAL | | | Eosinophils | performed at [facility], [address] | | LAB | | | | [address], | | | | | | [place] [address] | | | | + + + + + + | % Basophils | 0.64Comment: Testing | % | EXTERNAL | | | | performed at [facility], [address] | | LAB | | | | [address], | | | | | | [place] [address] | | | | + + + + + + | Absolute | 5.40Comment: Testing | 1.90 - 7.40 | EXTERNAL | | | Segmented | performed at [facility], [address] | K/uL | LAB | | | Neutrophils | [address], | | | | | | [place] [address] | | | | + + + + + + | Absolute | 2.63Comment: Testing | 1.00 - 3.90 | EXTERNAL | | | Lymphocytes | performed at [facility], [address] | K/uL | LAB | | | | [address], | | | | | | [place] [address] | | | | + + + + + + | Absolute | 1.58 (H)Comment: Testing | 0.00 - 0.80 | EXTERNAL | | | Monocytes | performed at [facility], [address] | K/uL | LAB | | | | [address], | | | | | | [place] [address] | | | | + + + + + + | Absolute | 0.34Comment: Testing | 0.00 - 0.50 | EXTERNAL | | | Eosinophils | performed at [facility], [address] | K/uL | LAB | | | | [address], | | | | | | [place] [address] | | | | + + + + + + | Absolute | 0.06Comment: Testing | 0.00 - 0.10 | EXTERNAL | | | Basophils | performed at [facility], [address] | K/uL | LAB | | | | [address], | | | | | | [place] [address] | | | | + + + [...] | | | | | [place] [address] | | | | + + + [...] EXTERNAL | | | | performed at [facility], [address] | | LAB | | | | [address], | | | | | | [place] [address] | | | | + + + [...] | | | | | [place] [address] | | | | + + + + + + | K | 4.4Comment: Testing | 3.5 - 4.9 | EXTERNAL | | | | performed at [facility], [address] | mmol/L | LAB | | | | [address], | | | | | | [place] [address] | | | | + + + + + + | Cl | 106Comment: Testing | 99 - 109 mmol/L | EXTERNAL | | | | performed at [facility], [address] | | LAB | | | | [address], | | | | | | [place] [address] | | | | + + + + + + | CO2 | 27Comment: Testing | 23 - 32 mmol/L | EXTERNAL | | | | performed at [facility], [address] | | LAB | | | | [address], | | | | | | [place] [address] | | | | + + + + + + | Anion Gap | 10Comment: Testing | 5 - 20 mmol/L | EXTERNAL | | | | performed at [facility], [address] | | LAB | | | | [address], | | | | | | [place] [address] | | | | + + + + + + | Glucose, | 129 (H)Comment: Testing | 65 - 99 mg/dL | EXTERNAL | | | Fasting | performed at [facility], [address] | | LAB | | | | [address], | | | | | | [place] [address] | | | | + + + + + + | BUN | 16Comment: Testing | 8 - 25 mg/dL | EXTERNAL | | | | performed at [facility], [address] | | LAB | | | | [address], | | | | | | [place] [address] | | | | + + + + + + | Creatinine | 0.82Comment: Testing | 0.50 - 1.00 | EXTERNAL | | | | performed at [facility], [address] | mg/dL | LAB | | | | [address], | | | | | | [place] [address] | | | | + + + + + + | BUN/Creatin | 20Comment: Testing | | EXTERNAL | | | ine Ratio | performed at [facility], [address] | | LAB | | | | [address], | | | | | | [place] [address] | | | | + + + + + + | Calcium | 8.9Comment: Testing | 8.5 - 10.5 | EXTERNAL | | | | performed at [facility], [address] | mg/dL | LAB | | | | [address], | | | | | | [place] [address] | | | | + + + [...] | | | | | [place] [address] | | | | + + + [...] | | | Fingerstick | performed at [facility];[address] | | LAB | | | | [address];[place] | | | | | | [address] | | | | + + + [...] | | | Fingerstick | performed at [facility];[address] | | LAB | | | | [address];[place], [place] | | | | | | [address] | | | | + + + [...] | | | Fingerstick | performed at [facility];8 | | LAB | | | | [address];[place] | | | | | | [address] | | | | + + + [...] | | | Fingerstick | performed at [facility];[address] | | LAB | | | | [address];[place], [place] | | | | | | [address] | | | | + + + [...] EXTERNAL | | | | performed at [facility];[address] | mmol/L | LAB | | | | [address];[place] | | | | | | [address] | | | | + + + [...] EXTERNAL | | | | performed at [facility];[address] | | LAB | | | | [address];[place], [place] | | | | | | [address] | | | | + + + [...] | | | Fingerstick | performed at [facility];8 | | LAB | | | | [address];[place] | | | | | | [address] | | | | + + + [...] | | | Fingerstick | performed at [facility];[address] | | LAB | | | | [address];[place], [place] | | | | | | [address] | | | | + + + [...] | | | Fingerstick | performed at [facility];[address] | | LAB | | | | [address];[place], [place] | | | | | | [address] | | | | + + + [...] | | | Fingerstick | performed at [facility];[address] | | LAB | | | | [address];[place], [place] | | | | | | [address] | | | | + + + [...] EXTERNAL | | | | performed at [facility], [address] | K/uL | LAB | | | | [address], | | | | | | [place] [address] | | | | + + + + + + | Red Blood | 3.42 (L)Comment: Testing | 3.70 - 5.10 | EXTERNAL | | | Cells | performed at [facility], [address] | M/uL | LAB | | | Counted | [address], | | | | | | [place] [address] | | | | + + + + + + | Hemoglobin | 11.1 (L)Comment: Testing | 11.3 - 15.5 | EXTERNAL | | | | performed at [facility], [address] | g/dL | LAB | | | | [address], | | | | | | [place] [address] | | | | + + + + + + | Hematocrit, | 33.5 (L)Comment: Testing | 34.0 - 46.0 % | EXTERNAL | | | POC | performed at [facility], [address] | | LAB | | | | [address], | | | | | | [place] [address] | | | | + + + + + + | MCV | 97.9Comment: Testing | 80.0 - 100.0 fl | EXTERNAL | | | | performed at [facility], [address] | | LAB | | | | [address], | | | | | | [place] [address] | | | | + + + + + + | MCH | 32.3Comment: Testing | 27.0 - 34.0 pg | EXTERNAL | | | | performed at [facility], [address] | | LAB | | | | [address], | | | | | | [place] [address] | | | | + + + + + + | MCHC | 33.0Comment: Testing | 32.0 - 35.5 | EXTERNAL | | | | performed at [facility], [address] | g/dL | LAB | | | | [address], | | | | | | [place] [address] | | | | + + + + + + | RDW-CV | 55.6 (H)Comment: Testing | 37 - 53 fl | EXTERNAL | | | | performed at [facility], [address] | | LAB | | | | [address], | | | | | | [place] [address] | | | | + + + + + + | Platelet | 321Comment: Testing | 150 - 400 K/uL | EXTERNAL | | | Count | performed at [facility], [address] | | LAB | | | Plasma | [address], | | | | | | [place] [address] | | | | + + + + + + | MPV | 7.4Comment: Testing | fl | EXTERNAL | | | | performed at [facility], [address] | | LAB | | | | [address], | | | | | | [place] [address] | | | | + + + + + + | Differentia | AUTOMATEDComment: | | EXTERNAL | | | l Type | Testing performed at | | LAB | | | | [facility], [address] | | | | | | [place] | | | | | | [address] | | | | + + + + + + | % Segmented | 51.00Comment: Testing | % | EXTERNAL | | | | performed at [facility], [address] | | LAB | | | Neutrophils | [address], | | | | | | [place] [address] | | | | + + + + + + | % | 30.62Comment: Testing | % | EXTERNAL | | | Lymphocytes | performed at [facility], [address] | | LAB | | | | [address], | | | | | | [place] [address] | | | | + + + + + + | % Monocytes | 16.25Comment: Testing | % | EXTERNAL | | | | performed at [facility], [address] | | LAB | | | | [address], | | | | | | [place] [address] | | | | + + + + + + | % | 1.79Comment: Testing | % | EXTERNAL | | | Eosinophils | performed at [facility], [address] | | LAB | | | | [address], | | | | | | [place] [address] | | | | + + + + + + | % Basophils | 0.34Comment: Testing | % | EXTERNAL | | | | performed at [facility], [address] | | LAB | | | | [address], | | | | | | [place] [address] | | | | + + + + + + | Absolute | 4.68Comment: Testing | 1.90 - 7.40 | EXTERNAL | | | Segmented | performed at [facility], [address] | K/uL | LAB | | | Neutrophils | [address], | | | | | | [place] [address] | | | | + + + + + + | Absolute | 2.81Comment: Testing | 1.00 - 3.90 | EXTERNAL | | | Lymphocytes | performed at [facility], [address] | K/uL | LAB | | | | [address], | | | | | | [place] [address] | | | | + + + + + + | Absolute | 1.49 (H)Comment: Testing | 0.00 - 0.80 | EXTERNAL | | | Monocytes | performed at [facility], [address] | K/uL | LAB | | | | [address], | | | | | | [place] [address] | | | | + + + + + + | Absolute | 0.16Comment: Testing | 0.00 - 0.50 | EXTERNAL | | | Eosinophils | performed at [facility], [address] | K/uL | LAB | | | | [address], | | | | | | [place] [address] | | | | + + + + + + | Absolute | 0.03Comment: Testing | 0.00 - 0.10 | EXTERNAL | | | Basophils | performed at [facility], [address] | K/uL | LAB | | | | [address], | | | | | | [place] [address] | | | | + + + [...] EXTERNAL | | | | performed at [facility], [address] | | LAB | | | | [address], | | | | | | [place] [address] | | | | + + + [...] EXTERNAL | | | | performed at [facility], [address] | | LAB | | | | [address], | | | | | | [place] [address] | | | | + + + [...] | | | | | [place] [address] | | | | + + + + + + | K | 3.9Comment: Testing | 3.5 - 4.9 | EXTERNAL | | | | performed at [facility], [address] | mmol/L | LAB | | | | [address], | | | | | | [place] [address] | | | | + + + + + + | Cl | 114 (H)Comment: Testing | 99 - 109 mmol/L | EXTERNAL | | | | performed at [facility], [address] | | LAB | | | | [address], | | | | | | [place] [address] | | | | + + + + + + | CO2 | 22 (L)Comment: Testing | 23 - 32 mmol/L | EXTERNAL | | | | performed at [facility], [address] | | LAB | | | [address], | | | | | | [place] [address] | | | | + + + + + + | Anion Gap | 10Comment: Testing | 5 - 20 mmol/L | EXTERNAL | | | | performed at [facility], [address] | | LAB | | | | [address], | | | | | | [place] [address] | | | | + + + + + + | Glucose, | 122 (H)Comment: Testing | 65 - 99 mg/dL | EXTERNAL | | | Fasting | performed at [facility], [address] | | LAB | | | | [address], | | | | | | [place] [address] | | | | + + + + + + | BUN | 16Comment: Testing | 8 - 25 mg/dL | EXTERNAL | | | | performed at [facility], [address] | | LAB | | | | [address], | | | | | | [place] [address] | | | | + + + + + + | Creatinine | 0.89Comment: Testing | 0.50 - 1.00 | EXTERNAL | | | | performed at [facility], [address] | mg/dL | LAB | | | | [address], | | | | | | [place] [address] | | | | + + + + + + | BUN/Creatin | 18Comment: Testing | | EXTERNAL | | | ine Ratio | performed at [facility], [address] | | LAB | | | | [address], | | | | | | [place] [address] | | | | + + + + + + | Calcium | 8.7Comment: Testing | 8.5 - 10.5 | EXTERNAL | | | | performed at [facility], [address] | mg/dL | LAB | | | | [address], | | | | | | [place] [address] | | | | + + + [...] | | | | | [place] [address] | | | | + + + [...] | | | Fingerstick | performed at [facility];[address] | | LAB | | | | [address];[place], [place] | | | | | | [address] [...] | | | Fingerstick | performed at [facility] | | LAB | | | | [address];[place] | | | | | | [address] | | | | + + + [...] EXTERNAL | | | | performed at [facility];[address] | mmol/L | LAB | | | | [address];[place] | | | | | | [address] | | | | + + + [...] | | | Fingerstick | performed at [facility];[address] | | LAB | | | | [address];[place] | | | | | | [address] | | | | + + + [...] | | | Fingerstick | performed at [facility];[address] | | LAB | | | | [address];[place], [place] | | | | | | [address] | | | | + + + [...] | | | Fingerstick | performed at [facility];[address] | | LAB | | | | [address];[place] | | | | | | [address] | | | | + + + [...] EXTERNAL | | | | performed at [facility];[address] | mmol/L | LAB | | | | [address];[place], [place] | | | | | | [address] | | | | + + + [...] | | | Fingerstick | performed at [facility];[address] | | LAB | | | | [address];[place] | | | | | | [address] | | | | + + + [...] | | | Fingerstick | performed at [facility];[address] | | LAB | | | | [address];[place], [place] | | | | | | [address] | | | | + + + [...] EXTERNAL | | | | performed at [facility];[address] | mmol/L | LAB | | | | [address];[place], [place] | | | | | | [address] | | | | + + + [...] | | | Fingerstick | performed at [facility];[address] | | LAB | | | | [address];[place] | | | | | | [address] | | | | + + + [...] | | | Fingerstick | performed at [facility];[address] | | LAB | | | | [address];[place], [place] | | | | | | [address] | | | | + + + [...] | | LAB | | | | [facility], [address] | | | | | | [place] | | | | | | [address] | | | | + + + + + + | Clarity | TURBIDComment: Testing | | EXTERNAL | | | | performed at [facility], [address] | | LAB | | | | [address], | | | | | | [place] [address] | | | | + + + + + + | Specific | 1.026Comment: Testing | 1.002 - 1.030 | EXTERNAL | | | [place], | performed at [facility], [address] | | LAB | | | Urine | [address], | | | | | | [place] [address] | | | | + + + + + + | Leukocyte | NEGATIVEComment: Testing | | EXTERNAL | | | Esterase, | performed at [facility], [address] | | LAB | | | Urine | [address], | | | | | | [place] [address] | | | | + + + + + + | Nitrite, | NEGATIVEComment: Testing | | EXTERNAL | | | Urine | performed at [facility], [address] | | LAB | | | | [address], | | | | | | [place] [address] | | | | + + + + + + | Urobilinoge | 0.2Comment: Testing | mg/dL | EXTERNAL | | | n, Urine | performed at [facility], [address] | | LAB | | | | [address], | | | | | | [place] [address] | | | | + + + + + + | Protein, | 100 (A)Comment: Testing | mg/dL | EXTERNAL | | | Urine | performed at [facility], [address] | | LAB | | | [address], | | | | | | [place] [address] | | | | + + + + + + | pH, Urine | 5.5Comment: Testing | 5.0 - 8.0 | EXTERNAL | | | | performed at [facility], [address] | | LAB | | | | [address], | | | | | | [place] [address] | | | | + + + + + + | Blood, | NEGATIVEComment: Testing | | EXTERNAL | | | Urine | performed at [facility], [address] | | LAB | | | | [address], | | | | | | [place] [address] | | | | + + + + + + | Ketones | TRACE (A)Comment: | mg/dL | EXTERNAL | | | | Testing performed at | | LAB | | | | [facility], [address] | | | | | | [place] | | | | | | [address] | | | | + + + + + + | Bilirubin, | LARGE (A)Comment: | | EXTERNAL | | | Urine | Testing performed at | | LAB | | | | [facility], [address] | | | | | | [place] | | | | | | [address] | | | | + + + + + + | Glucose, | NEGATIVEComment: Testing | mg/dL | EXTERNAL | | | Urine | performed at [facility], [address] | | LAB | | | | [address], | | | | | | [place] [address] | | | | + + + + + + | WBC, UA | 0-2Comment: Testing | 0 - 5 /hpf | EXTERNAL | | | | performed at [facility], [address] | | LAB | | | | [address], | | | | | | [place] [address] | | | | + + + + + + | RBC, UA | 1-5Comment: Testing | 0 - 5 /hpf | EXTERNAL | | | | performed at [facility], [address] | | LAB | | | [address], | | | | | | [place] [address] | | | | + + + + + + | Epithelial | 0-2Comment: Testing | /lpf | EXTERNAL | | | Cells | performed at [facility], [address] | | LAB | | | | [address], | | | | | | [place] [address] | | | | + + + + + + | Bacteria, | 4+ (A)Comment: Testing | | EXTERNAL | | | UA | performed at [facility], [address] | | LAB | | | | [address], | | | | | | [place] [address] | | | | + + + [...] | | | | | [place] [address] | | | | + + + [...] | | at Ratio | performed at [facility], [address] | | LAB | | | | [address], | | | | | | [place] [address] | | | | + + + [...] | | | Urine | performed at [facility], [address] | | LAB | | | Random | [address], | | | | | | [place] [address] | | | | + + + [...] | | | Urine | performed at [facility], [address] | | LAB | | | | [address], | | | | | | [place] [address] | | | | + + + [...] | | | Urine | performed at [facility], [address] | | LAB | | | | [address], | | | | | | [place] [address] | | | | + + + [...] | | | Urine | performed at [facility], [address] | | LAB | | | | [address], | | | | | | [place] [address] | | | | + + + [...] | | | Fingerstick | performed at [facility];[address] | | LAB | | | | [address];[place], [place] | | | | | | [address] | | | | + + + [...] EXTERNAL | | | | performed at [facility] | | LAB | | | | [address];[place], [place] | | | | | | [address] | | | | + + + [...] EXTERNAL | | | | performed at [facility];[address] | mmol/L | LAB | | | | [address];[place] | | | | | | [address] | | | | + + + + + + | K | 3.9Comment: Testing | 3.5 - 4.9 | EXTERNAL | | | | performed at [facility];[address] | mmol/L | LAB | | | | [address];[place] | | | | | | [address] | | | | + + + + + + | Cl | 115 (H)Comment: Testing | 99 - 109 mmol/L | EXTERNAL | | | | performed at [facility];[address] | | LAB | | | | [address];[place] | | | | | | [address] | | | | + + + + + + | CO2 | 26Comment: Testing | 23 - 32 mmol/L | EXTERNAL | | | | performed at [facility];[address] | | LAB | | | | [address];[place] | | | | | | [address] | | | | + + + + + + | Anion Gap | 14Comment: Testing | 5 - 20 mmol/L | EXTERNAL | | | | performed at [facility];[address] | | LAB | | | | [address];[place] | | | | | | [address] | | | | + + + + + + | Glucose, | 110 (H)Comment: Testing | 65 - 99 mg/dL | EXTERNAL | | | Fasting | performed at [facility];[address] | | LAB | | | | [address];[place] | | | | | | [address] | | | | + + + + + + | BUN | 19Comment: Testing | 8 - 25 mg/dL | EXTERNAL | | | | performed at [facility];[address] | | LAB | | | | [address];[place] | | | | | | [address] | | | | + + + + + + | Creatinine | 1.23 (H)Comment: Testing | 0.50 - 1.00 | EXTERNAL | | | | performed at [facility];[address] | mg/dL | LAB | | | | [address];[place] | | | | | | [address] | | | | + + + + + + | BUN/Creatin | 16Comment: Testing | | EXTERNAL | | | ine Ratio | performed at [facility];[address] | | LAB | | | | [address];[place] | | | | | | [address] | | | | + + + + + + | Calcium | 9.1Comment: Testing | 8.5 - 10.5 | EXTERNAL | | | | performed at [facility];888 | mg/dL | LAB | | | | [address];[place] | | | | | | [address] | | | | + + + [...] | | | | | | at [facility];[address];[place] [address] | | | | + + + [...] | | | Fingerstick | performed at [facility];[address] | | LAB | | | | [address];[place], [place] | | | | | | [address] | | | | + + + [...] | | | Fingerstick | performed at [facility];[address] | | LAB | | | | [address];[place] | | | | | | [address] | | | | + + + [...] | | LAB | | | | [facility];[address] | [address];[place] [address] | | | | + + + + + + | PCO2 ART | 31 (L)Comment: Testing | 35 - 45 mmHg | EXTERNAL | | | | performed at [facility];[address] | | LAB | | | | [address];[place] | | | | | | [address] | | | | + + + + + + | PO2 ART | 93Comment: Testing | 80 - 105 mmHg | EXTERNAL | | | | performed at [facility];[address] | | LAB | | | | [address];[place] | | | | | | [address] | | | | + + + + + + | Lactate, | 0.6Comment: Testing | 0.36 - 1.25 | EXTERNAL | | | Arterial | performed at [facility];[address] | mmol/L | LAB | | | | [address];[place] | | | | | | [address] | | | | + + + + + + | HCO3 ART | 23Comment: Testing | 22 - 26 mmol/L | EXTERNAL | | | | performed at [facility];[address] | | LAB | | | | [address];[place] | | | | | | [address] | | | | + + + + + + | POC | 24Comment: Testing | 23 - 27 mEq/L | EXTERNAL | | | APPEARANCE | performed at [facility];[address] | | LAB | | | UA | [address];[place] | | | | | | [address] | | | | + + + + + + | Base | 0Comment: Testing | 0 - 3 mEq/L | EXTERNAL | | | Excess, | performed at [facility];[address] | | LAB | | | Arterial | [address];[place] | | | | | | [address] | | | | + + + + + + | O2 SAT ART | 98Comment: Testing | 95 - 98 % | EXTERNAL | | | | performed at [facility];[address] | | LAB | | | | [address];[place] | | | | | | [address] | | | | + + + + + + | FiO2, POC | 25Comment: Testing | % | EXTERNAL | | | | performed at [facility];[address] | | LAB | | | | [address];[place] | | | | | | [address] | | | | + + + + + + | Comment, | Tidal Volume = | | EXTERNAL | | | POC | 20Comment: Peep = 5Resp | | LAB | | | | Rate = 46Testing | | | | | | performed at [facility];[address] | | | | | | [address];[place] | | | | | | [address] | | | | + + + [...] EXTERNAL | | | | performed at [facility];[address] | K/uL | LAB | | | | [address];[place] | | | | | | [address] | | | | + + + + + + | Red Blood | 3.56 (L)Comment: Testing | 3.70 - 5.10 | EXTERNAL | | | Cells | performed at [facility];[address] | M/uL | LAB | | | Counted | [address];[place] | | | | | | [address] | | | | + + + + + + | Hemoglobin | 11.6Comment: Testing | 11.3 - 15.5 | EXTERNAL | | | | performed at [facility];888 | g/dL | LAB | | | | [address];[place] | | | | | | [address] | | | | + + + + + + | Hematocrit, | 33.7 (L)Comment: Testing | 34.0 - 46.0 % | EXTERNAL | | | POC | performed at [facility];[address] | | LAB | | | | [address];[place] | | | | | | [address] | | | | + + + + + + | MCV | 94.6Comment: Testing | 80.0 - 100.0 fl | EXTERNAL | | | | performed at [facility];[address] | | LAB | | | | [address];[place] | | | | | | [address] | | | | + + + + + + | MCH | 32.6Comment: Testing | 27.0 - 34.0 pg | EXTERNAL | | | | performed at [facility];[address] | | LAB | | | | [address];[place] | | | | | | [address] | | | | + + + + + + | MCHC | 34.5Comment: Testing | 32.0 - 35.5 | EXTERNAL | | | | performed at [facility];888 | g/dL | LAB | | | | [address];[place] | | | | | | [address] | | | | + + + + + + | RDW-CV | 53.4 (H)Comment: Testing | 37 - 53 fl | EXTERNAL | | | | performed at [facility];[address] | | LAB | | | | [address];[place] | | | | | | [address] | | | | + + + + + + | Platelet | 344Comment: Testing | 150 - 400 K/uL | EXTERNAL | | | Count | performed at [facility];[address] | | LAB | | | Plasma | [address];[place] | | | | | | [address] | | | | + + + + + + | MPV | 7.3Comment: Testing | fl | EXTERNAL | | | | performed at [facility];[address] | | LAB | | | | [address];[place] | | | | | | [address] | | | | + + + + + + | Differentia | AUTOMATEDComment: | | EXTERNAL | | | l Type | Testing performed at | | LAB | | | | [facility];[address];[place] [address] | | | | + + + + + + | % Segmented | 59.60Comment: Testing | % | EXTERNAL | | | | performed at [facility];[address] | | LAB | | | Neutrophils | [address];[place] | | | | | | [address] | | | | + + + + + + | % | 24.07Comment: Testing | % | EXTERNAL | | | Lymphocytes | performed at [facility];[address] | | LAB | | | | [address];[place] | | | | | | [address] | | | | + + + + + + | % Monocytes | 15.67Comment: Testing | % | EXTERNAL | | | | performed at [facility];[address] | | LAB | | | | [address];[place] | | | | | | [address] | | | | + + + + + + | % | 0.24Comment: Testing | % | EXTERNAL | | | Eosinophils | performed at [facility];[address] | | LAB | | | | [address];[place] | | | | | | [address] | | | | + + + + + + | % Basophils | 0.42Comment: Testing | % | EXTERNAL | | | | performed at [facility];[address] | | LAB | | | | [address];[place] | | | | | | [address] | | | | + + + + + + | Absolute | 5.50Comment: Testing | 1.90 - 7.40 | EXTERNAL | | | Segmented | performed at [facility];[address] | K/uL | LAB | | | Neutrophils | [address];[place] | | | | | | [address] | | | | + + + + + + | Absolute | 2.22Comment: Testing | 1.00 - 3.90 | EXTERNAL | | | Lymphocytes | performed at [facility];[address] | K/uL | LAB | | | | [address];[place] | | | | | | [address] | | | | + + + + + + | Absolute | 1.45 (H)Comment: Testing | 0.00 - 0.80 | EXTERNAL | | | Monocytes | performed at [facility];[address] | K/uL | LAB | | | | [address];[place] | | | | | | [address] | | | | + + + + + + | Absolute | 0.02Comment: Testing | 0.00 - 0.50 | EXTERNAL | | | Eosinophils | performed at [facility];[address] | K/uL | LAB | | | | [address];[place] | | | | | | [address] | | | | + + + + + + | Absolute | 0.04Comment: Testing | 0.00 - 0.10 | EXTERNAL | | | Basophils | performed at [facility];[address] | K/uL | LAB | | | | [address];[place] | | | | | | [address] | | | | + + + [...] EXTERNAL | | | | performed at [facility];[address] | | LAB | | | | [address];[place] | | | | | | [address] | | | | + + + [...] EXTERNAL | | | | performed at [facility];[address] | | LAB | | | | [address];[place], [place] | | | | | | [address] | | | | + + + [...] EXTERNAL | | | | performed at [facility];888 | mmol/L | LAB | | | | [address];[place] | | | | | | [address] | | | | + + + + + + | K | 3.5Comment: Testing | 3.5 - 4.9 | EXTERNAL | | | | performed at [facility];888 | mmol/L | LAB | | | | [address];[place] | | | | | | [address] | | | | + + + + + + | Cl | 113 (H)Comment: Testing | 99 - 109 mmol/L | EXTERNAL | | | | performed at [facility];[address] | | LAB | | | | [address];[place] | | | | | | [address] | | | | + + + + + + | CO2 | 23Comment: Testing | 23 - 32 mmol/L | EXTERNAL | | | | performed at [facility];[address] | | LAB | | | | [address];[place] | | | | | | [address] | | | | + + + + + + | Anion Gap | 16Comment: Testing | 5 - 20 mmol/L | EXTERNAL | | | | performed at [facility];[address] | | LAB | | | | [address];[place] | | | | | | [address] | | | | + + + + + + | Glucose, | 187 (H)Comment: Testing | 65 - 99 mg/dL | EXTERNAL | | | Fasting | performed at [facility];[address] | | LAB | | | | [address];[place] | | | | | | [address] | | | | + + + + + + | BUN | 19Comment: Testing | 8 - 25 mg/dL | EXTERNAL | | | | performed at [facility];[address] | | LAB | | | | [address];[place] | | | | | | [address] | | | | + + + + + + | Creatinine | 1.00Comment: Testing | 0.50 - 1.00 | EXTERNAL | | | | performed at [facility];888 | mg/dL | LAB | | | | [address];[place] | | | | | | [address] | | | | + + + + + + | BUN/Creatin | 19Comment: Testing | | EXTERNAL | | | ine Ratio | performed at [facility];[address] | | LAB | | | | [address];[place] | | | | | | [address] | | | | + + + + + + | Calcium | 9.1Comment: Testing | 8.5 - 10.5 | EXTERNAL | | | | performed at [facility];888 | mg/dL | LAB | | | | [address];[place], [place] | | | | | | [address] | | | | + + + [...] | | | | | | at [facility];[address] [facility] | | | | | | Blvd;[place] [address] | | | | + + + [...] JESS | | | Testing performed at [facility], [address] [place] | | | [address] | | + + + + +---------+ [...] + + | Historically converted procedure from [facility] | EXTERNAL LAB | + + + [...] | | | Fingerstick | performed at [facility];[address] | | LAB | | | | [address];[place], [place] | | | | | | [address] | | | | + + + [...] | | | | | performed at [facility], [address] | | | | | | [address], | | | | | | [place] [address] | | | | + + + [...] | | | | | performed at [facility], [address] | | | | | | [address], | | | | | | [place] [address] | | | | + + + [...] EXTERNAL | | | | performed at [facility];[address] | | LAB | | | | [address];[place] | | | | | | [address] | | | | + + + [...] | | LAB | | | | [facility];[address];[place] [id number] | | | | + + + + + + | PCO2 ART | 21 (L)Comment: Testing | 35 - 45 mmHg | EXTERNAL | | | | performed at [facility];[address] | | LAB | | | | [address];[place] | | | | | | [address] | | | | + + + + + + | PO2 ART | 61 (L)Comment: Testing | 80 - 105 mmHg | EXTERNAL | | | | performed at [facility];[address] | | LAB | | | | [address];[place] | | | | | | [address] | | | | + + + + + + | Lactate, | 0.9Comment: Testing | 0.36 - 1.25 | EXTERNAL | | | Arterial | performed at [facility];[address] | mmol/L | LAB | | | | [address];[place] | | | | | | [address] | | | | + + + + + + | HCO3 ART | 22Comment: Testing | 22 - 26 mmol/L | EXTERNAL | | | | performed at [facility];[address] | | LAB | | | | [address];[place] | | | | | | [address] | | | | + + + + + + | POC | 22 (L)Comment: Testing | 23 - 27 mEq/L | EXTERNAL | | | APPEARANCE | performed at [facility];[address] | | LAB | | | UA | [address];[place] | | | | | | [address] | | | | + + + + + + | Base | 0Comment: Testing | 0 - 3 mEq/L | EXTERNAL | | | Excess, | performed at [facility];[address] | | LAB | | | Arterial | [address];[place] | | | | | | [address] | | | | + + + + + + | O2 SAT ART | 95Comment: Testing | 95 - 98 % | EXTERNAL | | | | performed at [facility];[address] | | LAB | | | | [address];[place] | | | | | | [address] | | | | + + + + + + | FiO2, POC | 25Comment: Testing | % | EXTERNAL | | | | performed at [facility];[address] | | LAB | | | | [address];[place] | | | | | | [address] | | | | + + + + + + | Comment, | Tidal Volume = | | EXTERNAL | | | POC | 472Comment: Peep = 5Resp | | LAB | | | | Rate = 32Testing | | | | | | performed at [facility];[address] | | | | | | [address];[place] | | | | | | [address] | | | | + + + [...] EXTERNAL LAB | | Testing performed at [facility];[address] [facility];[place] [address] MRSA PCR | | | NEGATIVE Testing performed at | | | [facility];[address] [facility];[place] [address] | | + + + + +---------+ [...] EXTERNAL | | | | performed at [facility];888 | mOsm/kg | LAB | | | | [address];[place], [place] | | | | | | [address] | | | | + + + [...] | | LAB | | | | [facility];[address];[place] [address] | | | | + + + + + + | PCO2 ART | 18 (LL)Comment: Testing | 35 - 45 mmHg | EXTERNAL | | | | performed at [facility];[address] | | LAB | | | | [address];[place] | | | | | | [address] | | | | + + + + + + | PO2 ART | 66 (L)Comment: Testing | 80 - 105 mmHg | EXTERNAL | | | | performed at [facility];[address] | | LAB | | | | [address];[place] | | | | | | [address] | | | | + + + + + + | Lactate, | 0.9Comment: Testing | 0.36 - 1.25 | EXTERNAL | | | Arterial | performed at [facility];888 | mmol/L | LAB | | | | [address];[place] | | | | | | [address] | | | | + + + + + + | HCO3 ART | 20 (L)Comment: Testing | 22 - 26 mmol/L | EXTERNAL | | | | performed at [facility];[address] | | LAB | | | | [address];[place] | | | | | | [address] | | | | + + + + + + | POC | 21 (L)Comment: Testing | 23 - 27 mEq/L | EXTERNAL | | | APPEARANCE | performed at [facility];888 | | LAB | | | UA | [address];[place] | | | | | | [address] | | | | + + + + + + | Base | 1Comment: Testing | 0.0 - 2.0 | EXTERNAL | | | deficit | performed at [facility];888 | mmol/L | LAB | | | | [address];[place] | | | | | | [address] | | | | + + + + + + | O2 SAT ART | 97Comment: Testing | 95 - 98 % | EXTERNAL | | | | performed at [facility];[address] | | LAB | | | | [address];[place] | | | | | | [address] | | | | + + + + + + | FiO2, POC | 21Comment: Testing | % | EXTERNAL | | | | performed at [facility];[address] | | LAB | | | | [address];[place] | | | | | | [address] | | | | + + + [...] | | | Patient | performed at [facility];888 | | LAB | | | | [address];[place], [place] | | | | | | [address] | | | | + + + [...] | | | | | performed at [facility] | | | | | | [facility];[place], [place] | | | | | | [address] | | | | + + + [...] EXTERNAL | | | | performed at [facility];[address] | | LAB | | | | [address];[place] | | | | | | [address] | | | | + + + [...] | | | Serum | performed at [facility];888 | mOsm/kg | LAB | | | | [address];[place], [place] | | | | | | [address] | | | | + + + [...] EXTERNAL | | | | performed at [facility] | | LAB | | | | [address];[place] | | | | | | [address] | | | | + + + [...] EXTERNAL | | | | performed at [facility];888 | mmol/L | LAB | | | | [address];[place] | | | | | | [address] | | | | + + + + + + | K | 2.8 (L)Comment: Testing | 3.5 - 4.9 | EXTERNAL | | | | performed at [facility];888 | mmol/L | LAB | | | | [address];[place] | | | | | | [address] | | | | + + + + + + | Cl | 106Comment: Testing | 99 - 109 mmol/L | EXTERNAL | | | | performed at [facility];[address] | | LAB | | | | [address];[place] | | | | | | [address] | | | | + + + + + + | CO2 | 22 (L)Comment: Testing | 23 - 32 mmol/L | EXTERNAL | | | | performed at [facility];[address] | | LAB | | | | [address];[place] | | | | | | [address] | | | | + + + + + + | Anion Gap | 18Comment: Testing | 5 - 20 mmol/L | EXTERNAL | | | | performed at [facility];[address] | | LAB | | | | [address];[place] | | | | | | [address] | | | | + + + + + + | Glucose, | 276 (H)Comment: Testing | 65 - 99 mg/dL | EXTERNAL | | | Fasting | performed at [facility];[address] | | LAB | | | | [address];[place] | | | | | | [address] | | | | + + + + + + | BUN | 17Comment: Testing | 8 - 25 mg/dL | EXTERNAL | | | | performed at [facility];[address] | | LAB | | | | [address];[place] | | | | | | [address] | | | | + + + + + + | Creatinine | 0.94Comment: Testing | 0.50 - 1.00 | EXTERNAL | | | | performed at [facility];888 | mg/dL | LAB | | | | [address];[place] | | | | | | [address] | | | | + + + + + + | BUN/Creatin | 18Comment: Testing | | EXTERNAL | | | ine Ratio | performed at [facility];[address] | | LAB | | | | [address];[place] | | | | | | [address] | | | | + + + + + + | Calcium | 9.2Comment: Testing | 8.5 - 10.5 | EXTERNAL | | | | performed at [facility];888 | mg/dL | LAB | | | | [address];[place] | | | | | | [address] | | | | + + + + + + | Protein, | 6.7Comment: Testing | 6.3 - 8.2 g/dL | EXTERNAL | | | Total | performed at [facility];[address] | | LAB | | | | [address];[place] | | | | | | [address] | | | | + + + + + + | Albumin | 2.8 (L)Comment: Testing | 3.6 - 5.0 g/dL | EXTERNAL | | | | performed at [facility];[address] | | LAB | | | | [address];[place] | | | | | | [address] | | | | + + + + + + | Globulin | 3.8Comment: Testing | 1.3 - 4.9 g/dL | EXTERNAL | | | | performed at [facility];[address] | | LAB | | | | [address];[place] | | | | | | [address] | | | | + + + + + + | A/G Ratio | 0.7 (L)Comment: Testing | 1.0 - 2.4 | EXTERNAL | | | | performed at [facility];[address] | | LAB | | | | [address];[place] | | | | | | [address] | | | | + + + + + + | Bilirubin | 0.5Comment: Testing | 0.1 - 1.5 mg/dL | EXTERNAL | | | Total | performed at [facility];[address] | | LAB | | | | [address];[place] | | | | | | [address] | | | | + + + + + + | ALP, | 81Comment: Testing | 35 - 115 U/L | EXTERNAL | | | External | performed at [facility];[address] | | LAB | | | | [address];[place] | | | | | | [address] | | | | + + + + + + | AST | 36Comment: Testing | 10 - 45 U/L | EXTERNAL | | | | performed at [facility];[address] | | LAB | | | | [address];[place] | | | | | | [address] | | | | + + + + + + | ALT | 63Comment: Testing | 10 - 65 U/L | EXTERNAL | | | | performed at [facility];[address] | | LAB | | | | [address];[place] | | | | | | [address] | | | | + + + [...] | | | | | | at [facility];[address];[place] [address] | | | | + + + [...] (500), | | | | | | order editor Robbins, Virginie | | | | | | 25) on 09/06/2014 | | | | | | 12:58:10 AM | | | | + + + + + + + + | Specimen | + + | | + + + + + | Narrative | Performed At | + + + | Historically converted procedure from [facility] | EXTERNAL LAB | + + + [...] | | LAB | | | | [facility];[address] | | | | | | [address];[place] [address] | | | | + + + + + + | PCO2 ART | 12 (LL)Comment: Testing | 35 - 45 mmHg | EXTERNAL | | | | performed at [facility];[address] | | LAB | | | | [address];[place] | | | | | | [address] | | | | + + + + + + | PO2 ART | 86Comment: Testing | 80 - 105 mmHg | EXTERNAL | | | | performed at [facility];[address] | | LAB | | | | [address];[place] | | | | | | [address] | | | | + + + + + + | Lactate, | 1.4 (H)Comment: Testing | 0.36 - 1.25 | EXTERNAL | | | Arterial | performed at [facility];888 | mmol/L | LAB | | | | [address];[place] | | | | | | [address] | | | | + + + + + + | HCO3 ART | 11 (L)Comment: Testing | 22 - 26 mmol/L | EXTERNAL | | | | performed at [facility];[address] | | LAB | | | | [address];[place] | | | | | | [address] | | | | + + + + + + | POC | 11 (L)Comment: Testing | 23 - 27 mEq/L | EXTERNAL | | | APPEARANCE | performed at [facility];[address] | | LAB | | | UA | [address];[place] | | | | | | [address] | | | | + + + + + + | Base | 11 (H)Comment: Testing | 0.0 - 2.0 | EXTERNAL | | | deficit | performed at [facility];888 | mmol/L | LAB | | | | [address];[place] | | | | | | [address] | | | | + + + + + + | O2 SAT ART | 98Comment: Testing | 95 - 98 % | EXTERNAL | | | | performed at [facility];[address] | | LAB | | | | [address];[place] | | | | | | [address] | | | | + + + [...] | | LAB | | | | [facility];[address];[place] [address] | | | | + + + [...] K/uL | LAB | | | | [facility];[address];[place] [address] | | | | + + + + + -+ | Red Blood | 4.46Comment: Testing | 3.70 - 5.10 | EXTERNAL | | | Cells | performed at [facility];888 | M/uL | LAB | | | Counted | [address];[place] | | | | | | [address] | | | | + + + + + -+ | Hemoglobin | 14.8Comment: Testing | 11.3 - 15.5 | EXTERNAL | | | | performed at [facility];888 | g/dL | LAB | | | | [address];[place] | | | | | | [address] | | | | + + + + + -+ | Hematocrit, | 42.9Comment: Testing | 34.0 - 46.0 % | EXTERNAL | | | POC | performed at [facility];[address] | | LAB | | | | [address];[place] | | | | | | [address] | | | | + + + + + -+ | MCV | 96.3Comment: Testing | 80.0 - 100.0 fl | EXTERNAL | | | | performed at [facility];[address] | | LAB | | | | [address];[place] | | | | | | [address] | | | | + + + + + -+ | MCH | 33.2Comment: Testing | 27.0 - 34.0 pg | EXTERNAL | | | | performed at [facility];[address] | | LAB | | | | [address];[place] | | | | | | [address] | | | | + + + + + -+ | MCHC | 34.5Comment: Testing | 32.0 - 35.5 | EXTERNAL | | | | performed at [facility];888 | g/dL | LAB | | | | [address];[place] | | | | | | [address] | | | | + + + + + -+ | RDW-CV | 53.4 (H)Comment: Testing | 37 - 53 fl | EXTERNAL | | | | performed at [facility];[address] | | LAB | | | | [address];[place] | | | | | | [address] | | | | + + + + + -+ | Platelet | 393Comment: Testing | 150 - 400 K/uL | EXTERNAL | | | Count | performed at [facility];[address] | | LAB | | | Plasma | [address];[place] | | | | | | [address] | | | | + + + + + -+ | MPV | 7.6Comment: Testing | fl | EXTERNAL | | | | performed at [facility];[address] | | LAB | | | | [address];[place] | | | | | | [address] | | | | + + + + + -+ | Differentia | AUTOMATEDComment: | | EXTERNAL | | | l Type | Testing performed at | | LAB | | | | [facility];[address];[place] [address] | | | | + + + + + -+ | % Segmented | 78.26Comment: Testing | % | EXTERNAL | | | | performed at [facility];888 | | LAB | | | Neutrophils | [address];[place] | | | | | | [address] | | | | + + + + + -+ | % | 8.69Comment: Testing | % | EXTERNAL | | | Lymphocytes | performed at [facility];[address] | | LAB | | | | [address];[place] | | | | | | [address] | | | | + + + + + -+ | % Monocytes | 12.49Comment: Testing | % | EXTERNAL | | | | performed at [facility];[address] | | LAB | | | | [address];[place] | | | | | | [address] | | | | + + + + + -+ | % | 0.12Comment: Testing | % | EXTERNAL | | | Eosinophils | performed at [facility];[address] | | LAB | | | | [address];[place] | | | | | | [address] | | | | + + + + + -+ | % Basophils | 0.44Comment: Testing | % | EXTERNAL | | | | performed at [facility];[address] | | LAB | | | | [address];[place] | | | | | | [address] | | | | + + + + + -+ | Absolute | 8.71 (H)Comment: Testing | 1.90 - 7.40 | EXTERNAL | | | Segmented | performed at [facility];888 | K/uL | LAB | | | Neutrophils | [address];[place] | | | | | | [address] | | | | + + + + + -+ | Absolute | 0.97 (L)Comment: Testing | 1.00 - 3.90 | EXTERNAL | | | Lymphocytes | performed at [facility];888 | K/uL | LAB | | | | [address];[place] | | | | | | [address] | | | | + + + + + -+ | Absolute | 1.39 (H)Comment: Testing | 0.00 - 0.80 | EXTERNAL | | | Monocytes | performed at [facility];888 | K/uL | LAB | | | | [address];[place] | | | | | | [address] | | | | + + + + + -+ | Absolute | 0.01Comment: Testing | 0.00 - 0.50 | EXTERNAL | | | Eosinophils | performed at [facility];888 | K/uL | LAB | | | | [address];[place] | | | | | | [address] | | | | + + + + + -+ | Absolute | 0.05Comment: Testing | 0.00 - 0.10 | EXTERNAL | | | Basophils | performed at [facility];888 | K/uL | LAB | | | | [address];[place] | | | | | | [address] | | | | + + + + + -+ | Na | 139Comment: Testing | 135 - 143 | EXTERNAL | | | | performed at [facility];888 | mmol/L | LAB | | | | [address];[place] | | | | | | [address] | | | | + + + + + -+ | K | 3.6Comment: Testing | 3.5 - 4.9 | EXTERNAL | | | | performed at [facility];888 | mmol/L | LAB | | | | [address];[place] | | | | | | [address] | | | | + + + + + -+ | Cl | 104Comment: Testing | 99 - 109 mmol/L | EXTERNAL | | | | performed at [facility];[address] | | LAB | | | | [address];[place] | | | | | | [address] | | | | + + + + + -+ | CO2 | 12 (LL)Comment: CALLED | 23 - 32 mmol/L | EXTERNAL | | | | RESULTSREAD BACK RESULTS | | LAB | | | | ABIGAIL/DAMIAN AGUIRRE | | | | | | AT 1824 BY SALTesting | | | | | | performed at [facility];[address] | | | | | | [address];[place] | | | | | | [address] | | | | + + + + + -+ | Anion Gap | 26 (H)Comment: Testing | 5 - 20 mmol/L | EXTERNAL | | | | performed at [facility];[address] | | LAB | | | | [address];[place] | | | | | | [address] | | | | + + + + + -+ | Glucose, | 229 (H)Comment: Testing | 65 - 99 mg/dL | EXTERNAL | | | Fasting | performed at [facility];[address] | | LAB | | | | [address];[place] | | | | | | [address] | | | | + + + + + -+ | BUN | 22Comment: Testing | 8 - 25 mg/dL | EXTERNAL | | | | performed at [facility];[address] | | LAB | | | | [address];[place] | | | | | | [address] | | | | + + + + + -+ | Creatinine | 1.07 (H)Comment: Testing | 0.50 - 1.00 | EXTERNAL | | | | performed at [facility];888 | mg/dL | LAB | | | | [address];[place] | | | | | | [address] | | | | + + + + + -+ | BUN/Creatin | 21Comment: Testing | | EXTERNAL | | | ine Ratio | performed at [facility];[address] | | LAB | | | | [address];[place] | | | | | | [address] | | | | + + + + + -+ | Calcium | 10.8 (H)Comment: Testing | 8.5 - 10.5 | EXTERNAL | | | | performed at [facility];888 | mg/dL | LAB | | | | [address];[place] | | | | | | [address] | | | | + + + + + -+ | Protein, | 8.5 (H)Comment: Testing | 6.3 - 8.2 g/dL | EXTERNAL | | | Total | performed at [facility];[address] | | LAB | | | | [address];[place] | | | | | | [address] | | | | + + + + + -+ | Albumin | 3.5 (L)Comment: Testing | 3.6 - 5.0 g/dL | EXTERNAL | | | | performed at [facility];[address] | | LAB | | | | [address];[place] | | | | | | [address] | | | | + + + + + -+ | Globulin | 5.0 (H)Comment: Testing | 1.3 - 4.9 g/dL | EXTERNAL | | | | performed at [facility];[address] | | LAB | | | | [address];[place] | | | | | | [address] | | | | + + + + + -+ | A/G Ratio | 0.7 (L)Comment: Testing | 1.0 - 2.4 | EXTERNAL | | | | performed at [facility];[address] | | LAB | | | | [address];[place] | | | | | | [address] | | | | + + + + + -+ | Bilirubin | 0.5Comment: Testing | 0.1 - 1.5 mg/dL | EXTERNAL | | | Total | performed at [facility];[address] | | LAB | | | | [address];[place] | | | | | | [address] | | | | + + + + + -+ | ALP, | 99Comment: Testing | 35 - 115 U/L | EXTERNAL | | | External | performed at [facility];[address] | | LAB | | | | [address];[place] | | | | | | [address] | | | | + + + + + -+ | AST | 55 (H)Comment: Testing | 10 - 45 U/L | EXTERNAL | | | | performed at [facility];[address] | | LAB | | | | [address];[place] | | | | | | [address] | | | | + + + + + -+ | ALT | 81 (H)Comment: Testing | 10 - 65 U/L | EXTERNAL | | | | performed at [facility];[address] | | LAB | | | | [address];[place] | | | | | | [address] | | | | + + + [...] | | | | | | at [facility];[address];[place] [address] | | | | + + + + + -+ | CK, Total | 259 (H)Comment: Testing | 30 - 240 U/L | EXTERNAL | | | | performed at [facility];[address] | | LAB | | | | [address];[place] | | | | | | [address] | | | | + + + [...] | | | | | performed at [facility];[address] | | | | | | [address];[place] | | | | | | [address] | | | | + + + + + -+ | aPTT, | 33 (H)Comment: Testing | 23 - 32 seconds | EXTERNAL | | | Patient | performed at [facility];[address] | | LAB | | | | [address];[place] | | | | | | [address] | | | | + + + + + -+ | CK-MB | 11.4 (H)Comment: Testing | 0.5 - 3.6 ng/mL | EXTERNAL | | | | performed at [facility];[address] | | LAB | | | | [address];[place], [place] | | | | | | [address] | | | | + + + [...] EXTERNAL | | | | performed at [facility];[address] | | LAB | | | | [address];[place] | | | | | | [address] | | | | + + + [...] EXTERNAL | | | | performed at [facility] | | LAB | | | | [address];[place] | | | | | | [address] | | | | + + + [...] EXTERNAL | | | | performed at [facility];888 | mmol/L | LAB | | | | [address];[place], [place] | | | | | | [address] | | | | + + + [...] | | | Lvl | performed at [facility];888 | mg/dL | LAB | | | | [address];[place] | | | | | | [address] | | | | + + + [...]
--- OUTSIDE RECORDS SUMMARY | ~2019-09-02 | XMS | Encounter Summary ---
Demographics + + + | Address | [address] | | | [place] [address] | + + + | Home Phone [...] | | | | | [place] [address] | | + + + + + | Robson Min | ECON | Unknown | | + + + + + | Isabella Whitehead | ECON | Unknown | | + + + + + | Seven Neff | ECON | Unknown | | + + + + + Care Team Providers + +------+ + | Care Vascular Manager Name | Role | Phone | + +------+ + | Bart Ba DO | PCP | | + +------+ + Encounter Details +--------+ + + + + | Date | Type | Department | Care Team | Description | +--------+ + + + + | 08/20/ | Imaging | [facility] | Provider, | | | 2018 | Exam | MED CTR EXTERNAL | MD [address] | | | | | IMAGING [address] | [address] | | | | | [address] | [place] [address] | | | | | [place] [address] | | | | | | [phone] | | | +--------+ + + + [...] [place] | | | | | | [address] | | | | | | | | +--------+---------+ + + + | 11/05/ | Office | Neurology | Tariq, | | | 2019 | Visit | | [address] | | | [address] [place], | | | | | | [place] [address] | | | | | | [phone] | | | | | | | [...]
--- OUTSIDE RECORDS SUMMARY | ~2019-09-02 | XMS | Encounter Summary ---
Demographics + + + | Address | [address] | | | [place] [address] | + + + | Home Phone [...] | | | | | [place] [address] | | + + + + + | Robson Min | ECON | Unknown | | + + + + + | Isabella Whitehead | ECON | Unknown | | + + + + + | Seven Neff | ECON | Unknown | | + + + + + Care Team Providers + +------+ + | Care Invoicing Specialist Name | Role | Phone | + +------+ + | Bart Ba DO | PCP | | + +------+ + Encounter Details +--------+ + + + + | Date | Type | Department | Care Team | Description | +--------+ + + + + | 11/19/ | Hospital | [facility] | Navdeep Grande, | COPD, mild (HCC) | | 2018 | Encounter | MED CTR PULMONARY | MD [address] | | | | | [address] | [place] | | | | | [place], | [address] | | | | | [place] [address] | | | | | | [phone] | | | +--------+ + + + [...] + + +---------+ + + | LANTUS ARMINAR | Inject 10 Units | | 0 [...] [place] | | | | | | [address] | | | | | | | | +--------+---------+ + + + | 11/05/ | Office | Neurology | Tariq, | | | 2019 | Visit | | Karyanne, LEAD [employer] DEVELOPER [address] | | | [address] [facility], | | | | | | [place] [address] | | | | | | [phone] | | | | | | | [...] | signed by: Navdeep Grande MD 11/19/2017 12:24[facility] | | | [facility] | | |physiology. Lung volume testing [...] Navdeep Grande MD 11/19/2017 12:24 | | |[facility] | | + + + documented in this encounter Visit Diagnoses + + | Diagnosis | + + | COPD, mild (HCC) Chronic airway obstruction, not elsewhere classified | + + documented in this encounter"
--- OUTSIDE RECORDS SUMMARY | ~2019-09-02 | XMS | Encounter Summary ---
Demographics + + + | Address | [address] | | | [place] [address] | + + + | Home Phone [...] | | | | | [place] [address] | | + + + + + Care Team Providers + +------+ + | Care Clinical Leader Name | Role | Phone | + +------+ + PCP | Unavailable | + +------+ + Encounter Details +--------+ + + + + | Date | Type | Department | Care Team | Description | +--------+ + + + + | 12/03/ | Results | | Other, Faculty | | | 2002 | Only | | [phone] | | +--------+ + + + + [...] DEPARTMENT OF | [address] | [place] [address] | | | PATHOLOGY | [address] | | | + + + + + | [facility] | [address] | [place] [address] | | | PATHOLOGY | [address] | | | + + + + + documented in this encounter Visit Diagnoses Not on filedocumented in this encounter"
--- OUTSIDE RECORDS SUMMARY | ~2019-09-02 | XMS | Encounter Summary ---
Demographics + + + | Address | [address] | | | [place] [address] | + + + | Home Phone [...] | | | | | [place] [address] | | + + + + + | Robson Min | ECON | Unknown | | + + + + + | Isabella Whitehead | ECON | Unknown | | + + + + + | Seven Neff | ECON | Unknown | | + + + + + Care Team Providers + +------+ + | Care Dry [place] Burner Name | Role | Phone | + +------+ + | Juanito Avery | PCP | | + +------+ + Reason for Visit + + + | Reason | Comments | + + + | Hospital Follow-up | | + + + Encounter Details +--------+ + + + + | Date | Type | Department | Care Team | Description | +--------+ + + + + | 06/25/ | Telephone | [facility] | [facility] | Hospital Follow-up | | 2020 | | Internal Medicine | [facility] | | | | | [facility] [address] | | | | [address] [place] | | | | | | [address] | | | | | | [phone] | | | +--------+ + + + [...] [place] | | | | | | [address] | | | | | | | | +--------+---------+ + + + | 11/05/ | Office | Neurology | Tariq, | | | 2019 | Visit | | [facility] [address] | | | | [address] [place], | | | | | | [place] [address] | | | | | | [phone] | | | | | | | | +--------+---------+ + + + documented as of this encounter Visit Diagnoses Not on filedocumented in this encounter"
--- OUTSIDE RECORDS SUMMARY | ~2019-09-02 | XMS | Encounter Summary ---
Demographics + + + | Address | [address] | | | [place] [address] | + + + | Home Phone [...] | | | | | [place] [address] | | + + + + + | Robson Min | ECON | Unknown | | + + + + + | Isabella Whitehead | ECON | Unknown | | + + + + + | Seven Neff | ECON | Unknown | | + + + + + Care Team Providers + +------+ + | Care Line Up Examiner Name | Role | Phone | + +------+ + | Bart Ba DO | PCP | | + +------+ + Encounter Details +--------+ + + + + | Date | Type | Department | Care Team | Description | +--------+ + + + + | 08/25/ | Hospital | [facility] | Navdeep Grande, | COPD (chronic | | 2013 | Encounter | MED CTR PULMONARY | MD [address] | obstructive | | | | FUNCTION [address] | [place] | pulmonary disease) | | | | [place], | [address] | ([facility]) | | | | [place] [address] | | | | | | [phone] | | | +--------+ + + + [...] | 0 | 10/08/19 | | | fudlckmwwn-zofexgk-i | every 6 hours as | | [...] puff into | | 0 | | 01/06/201 | | fluticasone-salmeter | the lungs Twice [...] + +---------+ + + | SUMAtriptan | 04/20-1 tablet by | | 0 | 09/10/19 [...] 2019 | Visit | | [address] | | | | | | [place] | | | | | | [address] | | | | | | | | +--------+---------+ + + + | 11/05/ | Office | Neurology | Tariq, | | | 2019 | Visit | | [address] | | | | | | [address] [facility], | | | | | | [place] [address] | | | | | | [phone] | | | | | | | [...] results section. | | | | | ([facility]) | | + +--------+ + + + [...] MD 08/25/2013 15:49 [facility] | | | [facility] | | + + + + [...] | | Navdeep Grande MD 08/25/2013 15:49[facility] | |IMPRESSION: Spirometry is consistent with normal physiology. Lung volume testing is consist ent with normal physiology. Diffusion capacity is mildly reduced and was not corrected for m easured hemoglobin. | | | |No prior pulmonary function tests available for comparison | | | |Test performed: 08/25/13 | |Electronically signed by: Navdeep Grande MD 08/25/2013 15:49 | |[facility] | + + documented in this encounter Visit Diagnoses + + | Diagnosis | + + | COPD (chronic obstructive pulmonary disease) (HCC) Chronic airway obstruction, not | | elsewhere classified | + + documented in this encounter"
--- OUTSIDE RECORDS SUMMARY | ~2019-09-02 | XMS | Encounter Summary ---
Demographics + + + | Address | [address] | | | [place] [address] | + + + | Home Phone [...] | | | | | [place] [address] | | + + + + + | Robson Min | ECON | Unknown | | + + + + + | Isabella Whitehead | ECON | Unknown | | + + + + + | Seven Neff | ECON | Unknown | | + + + + + Care Team Providers + +------+ + | Care Health Insurance Adjuster Name | Role | Phone | + [...] RN | Alveolar | | | | [place], | | hypoventilation; | | | | [place] [address] | | Hypoxemia | | | | [phone] | | | +--------+ + + + [...] [place] | | | | | | [id number] | | | | | | | | +--------+---------+ + + + | 11/05/ | Office | Neurology | Tariq, | | | 2019 | Visit | | [address] | | | | | | [address] [place], | | | | | | [place] [address] | | | | | | [phone] | | | | | | | [...]
--- OUTSIDE RECORDS SUMMARY | ~2019-09-02 | XMS | Encounter Summary ---
Demographics + + + | Address | [address] | | | [place] [address] | + + + | Home Phone [...] | | | | | [place] [address] | | + + + + + Care Team Providers + +------+ + | Care Solution Analyst Name | Role | Phone | [...] | | | | | Cathryn [place], | | | | | | [place] [address] | | | +--------+ + + + [...] | | Patient: CARLINE MIN Med Rec: [id number] Sex F Bdate: 1970 | | Date/Time Data | | Entered Into [facility] | | Anesth PostOp | | Surgery Date [id number] 10/28/05 11:05 | | Anesthesiologist BHAVANA QUIÑONES 10/28/05 11:05 | | Resident Anesthesiolog CARRIE GONZALES 10/28/05 11:05 | | | + + documented in this encounter Visit Diagnoses Not on filedocumented in this encounter"
--- OUTSIDE RECORDS SUMMARY | ~2019-09-02 | XMS | Encounter Summary ---
Demographics + + + | Address | [address] | | | [place] [address] | + + + | Home Phone | | + + + | Preferred Language | Unknown | + + + | Marital Status | Single | + + + | Buddhist Affiliation | CHR | + + + [...] | | | | | [place] [address] | | + + + + + Care Team Providers + +------+ + | Care Bioinformatics Developer Name | Role | Phone | + +------+ + PCP | Unavailable | + +------+ + Encounter Details +--------+ + + + + | Date | Type | Department | Care Team | Description | +--------+ + + + + | 10/29/ | Respiratory | | Other, Faculty | | | 2006 | Therapy | | [phone] | | +--------+ + + + + [...] | | | | | | Margi, DATA CENTER SOLUTIONS ARCHITECT | | | | + + + [...] [facility] | [address] | [facility] [place] | | | DIAGNOSTICS - | [address] | [address] | | | PULMONARY FUNCTION | | | | + + + + + documented in this encounter Visit Diagnoses Not on filedocumented in this encounter"
--- OUTSIDE RECORDS SUMMARY | ~2019-09-02 | XMS | Encounter Summary ---
Demographics + + + | Address | [address] | | | [place] [address] | + + + | Home Phone [...] | | | | | [place] [address] | | + + + + + | Robson Min | ECON | Unknown | | + + + + + | Isabella Whitehead | ECON | Unknown | | + + + + + | Seven Neff | ECON | Unknown | | + + + + + Care Team Providers + +------+ + | Care Field Enumerator Name | Role | Phone | + [...] | | | | reflux | [address] | | | | | Abdominal | [address] | [address] | | | | | pain, | [place] | [address] | | | | | generalized | [address] | [place] | | | | | Procedures | Phone: | [address] | | | | | [place] Gastric | [phone] | Phone: | | | | | Emptying | Fax: | [phone] | | | | | | [phone] | Fax: | | | | | | | [phone] | +--------+--------+ + + + + Reason [...] | | | | | bowel | [address] | [address] | | | | | syndrome | [address] | [place] | | | | | Other | [place] | [place] [address] | | | | | specified | [address] | Phone: | | | | | gastritis | [place], [place] | [phone] | | | | | with | [address] | Fax: | | | | | hemorrhage | Phone: | [phone] | | | | | Unspecified | [phone] | | | | | | gastritis [...] | | | | | | | kimi/moda | | | | | | | Procedures | | | | | | | NEW PATIENT | | | +--------+--------+ + + + + Encounter Details +--------+---------+ + + + | Date | Type | Department | Care Team | Description | +--------+---------+ + + + | 09/20/ | Office | [facility] | Cecilio Amato MD | Abdominal pain, | | 2014 | Visit | GASTROENTEROLOGY | [address] | generalized (Primary | | | | [address] [place] | [place], [place] | Dx); Esophageal | | | | [address] [place] | [address] | reflux | | | | [address] | [phone] | | | | | [phone] | | | +--------+---------+ + + + [...] 50 mg by mouth 4 times daily. 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 HISTORY [...] check celiac panel. Cecilio Amato MD / JOB #: [id number] signed by Cecilio Amato MD at 09/20/2013 [...] [place] | | | | | | [address] | | | | | | | | +--------+---------+ + + + | 11/05/ | Office | Neurology | Tariq, | | | 2019 | Visit | | [address] | | | | | | [address] [place], | | | | | | [place] [address] | | | | | | [phone] | | | | | | | [...]
--- OUTSIDE RECORDS SUMMARY | ~2019-09-02 | XMS | Encounter Summary ---
Demographics + + + | Address | [address] | | | [place] [address] | + + + | Home Phone [...] | | | | | [place] [address] | | + + + + + Care Team Providers + +------+ + | Care Green End Man Name | Role | Phone | + +------+ + | Bart Ba DO | PCP | | + +------+ + Encounter Details +--------+ + + + + | Date | Type | Department | Care Team | Description | +--------+ + + + + | 03/28/ | Abstract | Neurology at | Unknown . | | | 2018 | | [facility] & | | | | | | Healing [address] | | | | | | Cyndi Mailcode: [id number] | | | | | | [facility] | | | | | | and Healing, | | | | | | Building | | | | | | [place], [place] | | | | | | [address] | | | | | | [phone] | | | +--------+ + + + [...]
--- OUTSIDE RECORDS SUMMARY | ~2019-09-02 | XMS | Encounter Summary ---
Demographics + + + | Address | [address] | | | [place] [address] | + + + | Home Phone [...] | | | | | [place] [address] | | + + + + + | Robson Min | ECON | Unknown | | + + + + + | Isabella Whitehead | ECON | Unknown | | + + + + + | Seven Neff | ECON | Unknown | | + + + + + Care Team Providers + +------+ + | Care Contour Band Saw Operator Vertical Name | Role | Phone | + [...] [address] | | | | | [place], | [place] | | | | | [place] [address] | [address] | | | | | [phone] | | | +--------+--------+ + + + [...] [place] | | | | | | [address] | | | | | | | | +--------+---------+ + + + | 11/05/ | Office | Neurology | Tariq, | | | 2019 | Visit | | [address] | | | | | | [address] [place], | | | | | | [place] [address] | | | | | | [phone] | | | | | | | | +--------+---------+ + + + documented as of this encounter Visit Diagnoses Not on filedocumented in this encounter"
--- OUTSIDE RECORDS SUMMARY | ~2019-09-02 | XMS | Encounter Summary ---
Demographics + + + | Address | [address] | | | [place] [address] | + + + | Home Phone [...] | | | | | [place] [address] | | + + + + + Care Team Providers + +------+ + | Care Manager Mall Name | Role | Phone | + +------+ + PCP | Unavailable | + +------+ + Encounter Details +--------+ + + + + | Date | Type | Department | Care Team | Description | +--------+ + + + + | 10/29/ | Respiratory | | Other, Faculty | | | 2006 | Therapy | | [phone] | | +--------+ + + + + [...] [facility] | [address] | [place] | | | DIAGNOSTICS - | [address] | [address] | | | PULMONARY FUNCTION | | | | + + + + + documented in this encounter Visit Diagnoses Not on filedocumented in this encounter"
--- OUTSIDE RECORDS SUMMARY | ~2019-09-02 | XMS | Encounter Summary ---
Demographics + + + | Address | [address] | | | [place] [address] | + + + | Home Phone [...] | | | | | [place] [address] | | + + + + + | Robson Min | ECON | Unknown | | + + + + + | Isabella Whitehead | ECON | Unknown | | + + + + + | Seven Neff | ECON | Unknown | | + + + + + Care Team Providers + +------+ + | Care Side Stapler Name | Role | Phone | + [...] 2019 | | HOSPITAL NEUROLOGY | Theo, INFORMATION TECHNOLOGY ADMINISTRATOR [address] | | | | | CLIN[address] | [address], | | | | | [address] [place], | [place] [address] | | | | | [place] [address] | [phone] | | | | | [phone] | | | +--------+ + + + [...] [place] | | | | | | [address] | | | | | | | | +--------+---------+ + + + | 11/05/ | Office | Neurology | Tariq, | | | 2020 | Visit | | [address] | | | | | | [address] [place], | | | | | | [place] [address] | | | | | | [phone] | | | | | | | | +--------+---------+ + + + documented as of this encounter Visit Diagnoses Not on filedocumented in this encounter"
--- OUTSIDE RECORDS SUMMARY | ~2019-09-02 | XMS | Encounter Summary ---
Demographics + + + | Address | [address] | | | [place] [address] | + + + | Home Phone [...] | | | | | [place] [address] | | + + + + + Care Team Providers + +------+ + | Care Legal Word Processor Name | Role | Phone | + +------+ + PCP | Unavailable | + +------+ + Encounter Details +--------+ + + + + | Date | Type | Department | Care Team | Description | +--------+ + + + + | 10/22/ | Respiratory | | Other, Faculty | | | 2006 | Therapy | | [phone] | | +--------+ + + + + [...] | | | | | Y | PROPOSAL COORDINATOR | | | | + + [...] [facility] | [address] | [place], [place] | | | DIAGNOSTICS - | [address] | [address] | | | PULMONARY FUNCTION | | | | + + + + + documented in this encounter Visit Diagnoses Not on filedocumented in this encounter"
--- OUTSIDE RECORDS SUMMARY | ~2019-09-02 | XMS | Encounter Summary ---
Demographics + + + | Address | [address] | | | [place] [address] | + + + | Home Phone [...] | | | | | [place] [address] | | + + + + + | Robson Min | ECON | Unknown | | + + + + + | Isabella Whitehead | ECON | Unknown | | + + + + + | Seven Neff | ECON | Unknown | | + + + + + Care Team Providers + +------+ + | Care Real Estate Portfolio Manager Name | Role | Phone | [...] [address] | | | | | [place] [address] | | | | | | [phone] | | | +--------+ + + + [...] [place] | | | | | | [address] | | | | | | | | +--------+---------+ + + + | 11/05/ | Office | Neurology | Tariq, | | | 2020 | Visit | | [address] | | | | | | [address] [place], | | | | | | [place] [address] | | | | | | [phone] | | | | | | | | +--------+---------+ + + + documented as of this encounter Visit Diagnoses Not on filedocumented in this encounter"
--- OUTSIDE RECORDS SUMMARY | ~2019-09-02 | XMS | Encounter Summary ---
Demographics + + + | Address | [address] | | | [place] [address] | + + + | Home Phone | | + + + | Preferred Language | Unknown | + + + | Marital Status | Single | + + + | Worship Affiliation | CHR | + + + [...] | | | | | [place] [address] | | + + + + + Care Team Providers + +------+ + | Care Poultry Trimmer Name | Role | Phone | + +------+ + | Bart Ba DO | PCP | | + +------+ + Encounter Details +--------+--------+ + + + | Date | Type | Department | Care Team | Description | +--------+--------+ + + + | 06/20/ | Intake | Transfer Center | | N/A | | 2020 | | [address] | | | | | | [place], | | | | | | [place] [address] | | | +--------+--------+ + + + Social History + +-------+ [...]
--- OUTSIDE RECORDS SUMMARY | ~2019-09-02 | XMS | Encounter Summary ---
Demographics + + + | Address | [address] | | | [place] [address] | + + + | Home Phone [...] | | | | | [place] [address] | | + + + + + Care Team Providers + +------+ + | Care Bill Hiker Name | Role | Phone | + [...] | | | | | [address] [place], | | | | | | [place] [address] | | | | | | [phone] | | | | | | | [...] | + + + + + | [facility] | [address] | [place] [address] | | | PATHOLOGY | [address] | | | + + + + + | [facility] DEPARTMENT OF | [facility] | [place] [address] | | | PATHOLOGY | [address] [...] | 8.9 | 8.5 - 10.5 | [facility] | [...] + + + + | [facility] DEPARTMENT OF | [address] | [place] [address] | | | PATHOLOGY | [address] | | | + + + + + | [facility] DEPARTMENT OF | [address] | [place] [address] | | | PATHOLOGY | [address] | | | + + + + + documented in this encounter Visit Diagnoses Not on filedocumented in this encounter"
--- OUTSIDE RECORDS SUMMARY | ~2019-09-02 | XMS | Encounter Summary ---
Demographics + + + | Address | [address] | | | [place] [address] | + + + | Home Phone [...] | | | | | [place] [address] | | + + + + + | Robson Min | ECON | Unknown | | + + + + + | Isabella Whitehead | ECON | Unknown | | + + + + + | Seven Neff | ECON | Unknown | | + + + + + Care Team Providers + +------+ + | Care Hunter Skin Diver Name | Role | Phone | + [...] | | disease, | [place], | [place] [address] | | | | | unspecified | [place] | Phone: | | | | | (HCC) | [address] | [phone] | | | | | Obstructive | Phone: | Fax: | | | | | sleep apnea | [phone] | [phone] | | | | | (adult) | Fax: | | | | | | (pediatric) | [phone] | | | | | | Procedures [...] + | 08/26/ | Office | [facility] [place] | Navdeep Grande, | COPD, mild ([facility]) | | 2019 | Visit | PULMONARY [address] | MD [address] | (Primary Dx); | | | | [place], | [place], [place] | Alveolar | | | | [place] [address] | [address] | hypoventilation; [place] | | | | [phone] | | and COPD overlap | | [...] find a support program: Free national quitline: 134-ZWBI-CMT (360-524-0667). Hospital quit-smoking programs. [place] [employer]: (583.154.1156). [place] [employer] (868-969-3756). Support at home is important too. Nonsmokers can offer praise and encouragement. If the smo ker in your life finds it hard to quit, encourage them to keep trying. Hegr-zul-pydudsq medicines Nicotine replacement therapymay make quittingeasier. Certain [...] to quit smoking, try these online resources: [employer] "Clearing the Air" booklet from the National Cancer Quitaque: LinQ[employer].gov/sites/defau lt/files/pdf/thugypfx-mke-xir-accessible.pdf Date Last Reviewed: 06/17/201619996152-[address] [employer] [place] [address], [place] [address]. All righ ts reserved. This information is [...] with prednisone and doxycycline. Unfortunately while in [facility] at a neurology appointment the patient had a presync opal episode. She also had apparently "run out" of her oxygen. She was subsequently admitt ed to the hospital in [facility]. They have had any acute pulmonary [...] changes Acid reflux disease Bipolar 1 disorder ([facility]) CHRONIC TENSION HEADACHE Classical migraine without mention of intractable migraine Diabetes mellitus, type 2 ([facility]) Empyema lung ([facility]) 2005 right GI bleeding Hypercholesterolemia Hypertension Hypothyroidism IBS (irritable bowel syndrome) Knee pain Lymphedema Nausea and vomiting Nocturia Obesity Panic anxiety syndrome Pneumonia Pyoderma gangreosum-LE RA (rheumatoid arthritis) ([facility]) Followed by Dr. Becerra Rheumologist in [place] Reflux esophagitis Restless leg syndrome Urinary [...] 50,000 Units by mouth Once a w wales., Disp: , Rfl: LANTUS SOLOSTAR 100 UNIT/ML [...] QUADR W/PRES (PED/ADOL/ADULT) MULTIDOSE 01/27/2017, 02/10/2018 INFLUENZA, [id number], UNSPECIFIED 03/09/2009 INFLUENZA, UNSPECIFIED FORMULATION 04/27/2000, 02/04/2011, [...] Psychiatric: Affect normal. Data: Discharge summary from [facility] in the [facility] references: The patient was subsequently admitted on [...] sleep apnea/chronic ventilatory insufficiency intolerant of IVAPS. Jeroe rocíoly Ms. Min is solely using supplemental oxygen [...] [place] | | | | | | [address] | | | | | | | | +--------+---------+ + + + | 11/05/ | Office | Neurology | Tariq, | | | 2019 | Visit | | [address] | | | | | | [address] [facility], | | | | | | [place] [address] | | | | | | [phone] | | | | | | | [...] Grande MD 09/22/2018 | | | 14:54[facility] | | |physiology. Lung volume testing [...] Navdeep Grande MD 09/22/2018 14:54 | | |[facility] | | + + + documented [...]
--- OUTSIDE RECORDS SUMMARY | ~2019-09-02 | XMS | Encounter Summary ---
Demographics + + + | Address | [address] | | | [place] [address] | + + + | Home Phone | | + + + | Preferred Language | Unknown | + + + | Marital Status | Single | + + + | Faith Affiliation | Unknown | + + + [...] | | | | | [place] [address] | | + + + + + | Robson Min | ECON | Unknown | | + + + + + | Isabella Whitehead | ECON | Unknown | | + + + + + | Seven Neff | ECON | Unknown | | + + + + + Care Team Providers + +------+ + | Care In Shop Service Technician Name | Role | Phone [...] + + | 06/05/ | Telephone | [facility] [place] | Navdeep Grande, | Results | | 2016 | | PULMONARY [address] | MD [address] | | | | | [place], | [place] | | | | | [place] [address] | [address] | | | | | [phone] | | | +--------+ + + + [...] [place] | | | | | | [address] | | | | | | | | +--------+---------+ + + + | 11/05/ | Office | Neurology | Tariq, | | | 2019 | Visit | | [address] | | | | | | [address] [place], | | | | | | [place] [address] | | | | | | [phone] | | | | | | | [...]
--- OUTSIDE RECORDS SUMMARY | ~2019-09-02 | XMS | Encounter Summary ---
Demographics + + + | Address | [address] | | | [place] [address] | + + + | Home Phone [...] | | | | | [place] [address] | | + + + + + | Robson Min | ECON | Unknown | | + + + + + | Isabella Whitehead | ECON | Unknown | | + + + + + | Seven Neff | ECON | Unknown | | + + + + + Care Team Providers + +------+ + | Care Media Technician Name | Role | Phone | [...] | | disease, | [place], | [place] [address] | | | | | unspecified | [place] | Phone: | | | | | (HCC) | [address] | [phone] | | | | | Obstructive | Phone: | Fax: | | | | | sleep apnea | [phone] | [phone] | | | | | (adult) | Fax: | | | | | | (pediatric) | [phone] | | | | | | Procedures [...] + + | 09/22/ | Office | [facility] | [place], | Alveolar | | 2019 | Visit | PULMONARY [address] | MD [address] | hypoventilation | | | | [place], | [place] | (Primary Dx); COPD, | | | | [place] [address] | [id number] | moderate (HCC); | | | | [phone] | | Hypoxemia; COPD, | | | [...] AM PDT Roflumilast oral tablets Brand Name: Ron What is this medicine? ROFLUMILAST (mini FLUE [...] information carefully each time. Talk to your patient transporter regarding the use of this medicine in children. Special care may be needed. What side effects may I notice from receiving this medicine? Side effects that you should report to your doctor or health career information specialist as soon as p ossible: allergic reactions like skin rash, itching or hives, swelling of the face, lips, or tong ue anxious breathing problems suicidal thoughts or other mood changes trouble sleeping weight loss Side effects that usually do not require medical attention (report to your doctor or health career information specialist if they continue or are bothersome): back pain diarrhea dizziness general ill feeling or flu-like symptoms headache loss of appetite nausea, vomiting What may interact with this medicine? carbamazepine cimetidine enoxacin erythromycin fluvoxamine ketoconazole phenobarbital phenytoin rifampicin [place]'s wort What if I miss a dose? [...] appointment. Recent foot infection treated by a roberto dong. Specifics unknown. The patient is currently on [...] changes Acid reflux disease Bipolar 1 disorder ([facility]) CHRONIC TENSION HEADACHE Classical migraine without mention of intractable migraine Diabetes mellitus, type 2 ([facility]) Empyema lung ([facility]) 2005 right GI bleeding Hypercholesterolemia Hypertension Hypothyroidism IBS (irritable bowel syndrome) Knee pain Lymphedema Nausea and vomiting Nocturia Obesity Panic anxiety syndrome Pneumonia Pyoderma gangreosum-LE RA (rheumatoid arthritis) ([facility]) Followed by Dr. Becerra Rheumologist in [place] Reflux esophagitis Restless leg syndrome Urinary [...] 50,000 Units by mouth Once a w [place]., Disp: , Rfl: fluticasone-salmeterol (ADVAIR HFA) 115-21 [...] daily., Disp: , Rfl: Respiratory Therapy Supplies [facility], Portable oxygen concentrator to provide O2 at [...] QUADR W/PRES (PED/ADOL/ADULT) MULTIDOSE 01/27/2017, 02/10/2018 INFLUENZA, [id number], UNSPECIFIED 03/09/2009 INFLUENZA, UNSPECIFIED FORMULATION 04/27/2000, 02/04/2011, 02/03/2012, 01/10/2013, 04/2012, 01/10/2015 PNEUMOCOCCAL CONJUGATE 13-VALENT (PCV13) 03/19/2013, [...] 09/22/2018 and were reviewed with the patient adriana bernabe. They show forced vital capacity of 2.20, [...] pack of cigarettes a day. 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
--- OUTSIDE RECORDS SUMMARY | ~2019-09-02 | XMS | Encounter Summary ---
Demographics + + + | Address | [address] | | | [place] [address] | + + + | Home Phone [...] | | | | | [place] [address] | | + + + + + | Robson Min | ECON | Unknown | | + + + + + | Isabella Whitehead | ECON | Unknown | | + + + + + | Seven Neff | ECON | Unknown | | + + + + + Care Team Providers + +------+ + | Care Set Up Operator Tool Name | Role | Phone | [...] [place], | | | | | | [place] [address] | | | | | | [phone] | | | +--------+ + + + [...] [place] | | | | | | [address] | | | | | | | | +--------+---------+ + + + | 11/05/ | Office | Neurology | Tariq, | | | 2019 | Visit | | [address] [facility], | | | | | | [place] [address] | | | | | | [phone] | | | | | | | | +--------+---------+ + + + documented as of this encounter Visit Diagnoses + + | Diagnosis | + + | Alveolar hypoventilation Other dyspnea and respiratory abnormality | + + documented in this encounter"
--- OUTSIDE RECORDS SUMMARY | ~2019-09-02 | XMS | Encounter Summary ---
Demographics + + + | Address | [address] | | | [place] [address] | + + + | Home Phone [...] [address] | | | | | [place] [address] | | + + + + + | Robson Min | ECON | Unknown | | + + + + + | Isabella Whitehead | ECON | Unknown | | + + + + + | Seven Neff | ECON | Unknown | | + + + + + Care Team Providers + +------+ + | Care Client Technologies Specialist Name | Role | Phone | + +------+ + | Ora Slater | PCP | | + +------+ + Reason for Visit + + + | Reason | Comments | + + + | Dizziness | | + + + | Neuropathy | | + + + Encounter Details +--------+---------+ + + + | Date | Type | Department | Care Team | Description | +--------+---------+ + + + | 09/16/ | Office | [facility] | Tariq, | Intractable migraine | | 2019 | Visit | [facility] | Theo, [employer] [address] | with aura without | | | | CLIN[facility] [address] [place], | status migrainosus | | | | [place], | [place] [address] | (Primary Dx); | | | | [place] [address] | [phone] | Confusion and | | | | [phone] | | disorientation; | | | | | | Diabetic | | | | | | polyneuropathy | | | | | | associated with type | | | | | | 2 diabetes mellitus | | | | | | (HCC) [...] + + + | Blood Pressure | 110/76 | 09/16/2018 9:44 AM | | | | | PDT | | + + + + + | Pulse | 100 | 09/16/2018 9:44 AM | | | | | PDT | | + + + + + | Temperature | - | - | | + + + + + | Respiratory Rate | 18 | 09/16/2018 9:44 AM | | | | | PDT | | + + + + + | Oxygen Saturation | 95% | 09/16/2018 9:44 AM | 1lpm | | | | PDT | | + + + + + | Inhaled Oxygen | - | - | | | Concentration | | | | + + + + + | Weight | 98.4 kg (217 lb) | 09/16/2018 9:44 AM | | | | | PDT | | + + + + + | Height | 170.2 cm (5' 7") | 09/16/2018 9:44 AM | | | | | PDT | | + + + + + | Body Mass Index | 33.99 | 09/16/2018 9:44 AM | | | | | PDT | | + + + + + documented in this encounter Patient Instructions Patient Instructions Theo Potter FNP - 09/16/2018 9:45 AM PDTFormatting of this no te might be different from the original. Migraine Headache This often severe type of headache is different from other types of headaches in that sympt oms other than pain occur with the headache. Nausea and vomiting, lightheadedness, sensitivi ty to light (photophobia), and other visual disturbances are common migraine symptoms.The pain may last from a few hours to several days. It is not clear why migraines occur but cert ain factors called triggers can raise the risk of having a migraine attack.A migrain e may be triggered by emotional stressor depression, or by hormone changes during the mens trual cycle. Other triggers include control pills, overuse of migraine medicines, alco hol or caffeine, foods with tyramine (such as aged cheese and wine), eyestrain, weather vela ges, missed meals,or too little or too much sleep. Home care Follow these tips when taking care of yourself at home: Don t drive yourself home if you were given pain medicine for your headache or are hav ing visual symptoms. Instead, have someone else drive you home. Try to sleep when you get ho me. You should feel much better when you wake up. Cold can help ease migraine symptoms. Put an ice pack on your forehead or at the base of your skull. Put heat on the back of your neck to help ease any neck spasm. Drink only clear liquids or eat a light diet until your symptoms get better. This will h elp you avoid nausea and vomiting. How to prevent migraines Pay attention to what seems to trigger your headache. Try to avoid the triggers when you ca n. If you have frequent headaches, consider keeping a headache diary. In it, write down what you were doing, feeling, or eating in the hours before each headache. Show this to your [facility] provider to help find the cause of your headaches. If stress seems to be a trigger for your headaches, figure out what is causing stress in yo ur life. Learn new ways to handle your stress. Ideas include regular exercise, biofeedback, self-hypnosis, yoga, and meditation. Talk with your healthcare provider to find out more inf ormation about managing stress. Many books and digital media are also available on this subj ect. Tyramine is a substance found in many foods. It can trigger a migraine in some people. Thes e foods contain tyramine: Chocolate Yogurt All cheeses, but especially aged cheeses Smoked or pickled fish and meat, including lopez, caviar, bologna, pepperoni, and marley mi Liver Avocados Bananas Figs Raisins Red wine Try staying away from these foods for 1 to 2 months to see if you have fewer headaches. How to treat future headaches Take time out at the first sign of a headache, if possible. Find a quiet, dark, comforta ble place to sit or lie down. Let yourself relax or sleep. Put an ice pack on your forehead or on the area of greatest pain. A heating pad and mass age may help if you are having a muscle spasm and tightness in your neck. If you have been prescribed a medicine to stop a migraine headache, use this at the firs t warning sign of the headache for best results. First signs may be an aura or pain. If you need to take medicine often for your migraine, talk with your healthcare provider about other ways to prevent your headaches. Follow-up care Follow up with your healthcare provider, or as advised. Talk with your provider if you have frequent headaches. He or she can figure out a treatment plan. Ask if you can have medicine to take at home the next time you get a bad headache. This may keep you from having to visi t the emergency department in the future. You may need to see a headache specialist (neurolo gist) if you continue to have headaches. When to seek medical advice Call your healthcare provider right awayif any of these occur: Your head pain gets worse, or doesn t get better within 24 hours You can t keep liquids down (repeated vomiting) Pain in your sinuses, ears, or throat Fever of 100.4 F (38 C) or higher, or as directed by your healthcare provider Stiff neck Extreme drowsiness, confusion, or fainting Dizziness, or dizziness with spinning sensation (vertigo) Weakness in an arm or leg, or on one side of your face Difficulty talking or seeing Date Last Reviewed: 11/18/201519993792-2372 [employer]. [address] [place] [address]. All righ ts reserved. This information is not intended as a substitute for professional medical care. Always follow your healthcare professional's instructions. Preventing Migraine Headaches: Triggers Red wine is a common migraine trigger. The first step in preventing migraines is to learn what triggers them. You may then be able to control your triggers to avoid or reduce the severity of your migraines. Know your triggers Be aware that you may have more thanone trigger, and that some triggers may work together . Common migraine triggers include: Food and nutrition. Skipping meals or not drinking enough water can trigger headaches. S o can certain foods, such as caffeine, chocolate, artificial sweeteners, monosodium glutamat e (MSG),aged cheese, or sausage. Alcohol. Red wine and other alcoholic beverages are common migraine triggers. Chemicals. Scents, cleaning products, gasoline, glue, perfume, and paint can be triggers . So can tobacco smoke, including secondhand smoke. Emotions. Stress can trigger headaches or make them worse once they start. Sleep disruption. Staying up late, sleeping late, and traveling across time zones can di srupt your sleep cycle, triggering headaches. Hormones. Many women notice that migraines tend tohappen at a certain point in their m enstrual cycle. control pills or hormone replacement therapy may also trigger migraine s. Environment and weather. Air travel, changes in altitude, air pressure changes, hot sun, or bright or flashing lights can be triggers. Medicine overuse. Frequent use of pain medicines for headache pain can also cause a head ache. This may also be called rebound headache. Control your triggers These are some of the things you can do to try to control triggers: Avoid triggers if you can. For example, stay clear of alcohol and foods that trigger you r headaches. Use unscented household products. Keep regular sleep habits. Manage stress to h elp control emotional triggers. Change your behavior at times when triggers can't be avoided. For example, make sure to get enough rest and drink plenty of water while you're traveling. Make sure to carry a hat, sunglasses, and your medicines. Be alert for migraine symptoms, so you can treat a migraine early if it happens. Date Last Reviewed: 08/17/201719991957-6530 [employer]. [address] [place] [address]. All righ ts reserved. This information is not intended as a substitute for professional medical care. Always follow your healthcare professional's instructions. Preventing Migraine Headaches: Medicines and Lifestyle Changes Going to bed and getting up at the same time each day, including weekends, may help prevent migraines. A migraine is a type of severe headache. Having a migraine can be very painful. But there a re steps you can take to help prevent migraines. Medicines to help prevent migraines Your healthcare provider may prescribe certain medicines to help prevent migraines. Thes e medicines may need to be taken daily. Or they may only need to be taken at times when you re likely to have a migraine. Common medicines used to help prevent migraines include: ? Triptans (serotonin receptor agonists) ? Nonsteroidal anti-inflammatory drugs (such as ibuprofen, available [id number]) ? Beta-blockers ? Anticonvulsants ? Tricyclic antidepressants ? Calcium channel blockers ? Certain vitamins, minerals, and plant extracts ? Botulinum toxin injection for certain chronic migraines ? CGRP (calcitonin gene-related peptide) agnonists are being reviewed by the Food and Drug Administration (FDA) Lifestyle changes for long-term prevention Here are some suggestions: Exercise. Regular exercise can help prevent migraines and improve your health. (If exerc ise triggers your migraines, talk to your healthcare provider.) Keep regular habits. Don t skip or delay meals. Drink plenty of water. And go to bed a nd get up at about the same time each day. This includes weekends. Try alternative treatments. These are treatments that don't involve the use of medicines or surgery. They may help relieve symptoms and prevent migraines. Some treatment options in clude biofeedback and acupuncture. Ask yourhealthcare providerto tell you more about the se treatments if you have questions. Limit caffeine. You may find that caffeine helps relieve pain during an attack. But too much caffeine can also trigger migraines. So, limit the amount of caffeine you consume. Date Last Reviewed: 08/17/201719990245-9602 [employer]. [address] [place] [address]. All righ ts reserved. This information is not intended as a substitute for professional medical care. Always follow your healthcare professional's instructions. documented in this encounter Progress Notes Theo Potter FNP - 09/16/2018 9:45 AM PDT Patient: Kait Min Medical Record: [id number] Date of Services: 09/16/2018 Referring Doctor: TIMOTHY Singleton Chief Complaint: Migraine headaches, intermittent confusion, polyneuropathy History of Present Illness: The patient presents to the Neurology Clinic today for follow u p. This is an established patient of Dr. Samayoa, but is not known to me. The patient was initially evaluated by Dr. Samayoa in February 2018 for recurrent disorientatio n and confusion. The patient and her mother report that the episodes would occur initially when she woke from sleep and would last for several hours, sometimes a full day. The patien audelia would have dysarthria and slurred speech, unsteady gait and occasional shaking of her hand s. The patient was unaware of her symptoms. She did not experience any urinary incontinenc e, tongue biting, chest pain, palpitations, diaphoresis or shortness of breath. During the patient's last visit to our office on August 15, 2017 the patient was in an acute confusional state. The patient reports that her symptoms on this day were typical of the episodes that she would experience. On that day, her oxygen saturation was low 70s. It is possible that her confusional states occurred due to hypoxemia and hypoxia. The patient was admitted to the hospital following that episode and treated for acute respiratory failure. The patient reports that since she was treated in the hospital, her symptoms have not recurred. The joey paz is currently wearing oxygen, 1 L nasal cannula today. The patient did have an MRI of t shazia brain done in December 2017 which showed nonspecific white matter changes. She also had an EEG done in February 2018 which does not show any signs of seizure activity. The patient also has recurrent headaches, migrainous type, with aura, occurring approximate ly 3 4 times per week lasting all day. The patient reports that the pain begins in her ne ck/occipital region and becomes generalized. She does experience nausea and vomiting with p hotophobia and phonophobia. The patient is currently taking verapamil 480 mg by mouth daily at bedtime, venlafaxine 225 mg and Lyrica for headache prophylaxis. The patient reports th at she is continued to experience headaches greater than 15-20 days per month, more than 10- 15 hours per day for greater than 3 years. The patient is currently being treated by a spec ialist for her psychiatric issues. Because of this, she is unable to take antidepressants f or headache prophylaxis. She has early failed therapy with beta blockers and antiseizure me dications. The patient also has a history of peripheral neuropathy. She reports that her symptoms hav e not been bothersome to her at this time. Encounter Problem List Intractable migraine with aura without status migrainosus (Primary) - BOTOX INJECTION PAIN CLINIC PROCEDURE Confusion and disorientation Diabetic polyneuropathy associated with type 2 diabetes mellitus (HCC) Past Surgical History: Procedure Laterality Date CATARACT REMOVAL Bilateral 01/2018 colonoscopy COLONOSCOPY ENDOSCOPY PMTX surgery 2006 UPPER GASTROINTESTINAL ENDOSCOPY Allergies Allergen Reactions Adhesive & Tape Other (See Comments) Other reaction(s): Other (See Comments) Skin sensitivity Skin sensitivity Azithromycin Hives Lamotrigine Current Medications: albuterol aspirin azaTHIOprine azaTHIOprine buprenorphine busPIRone busPIRone cloNIDine ergocalciferol fluticasone-salmeterol LANTUS SOLOSTAR levothyroxine levothyroxine magnesium oxide metFORMIN omeprazole pregabalin Respiratory Therapy Supplies sulfaSALAzine tiZANidine torsemide torsemide traZODone verapamil vortioxetine ziprasidone Review of Symptoms: CONSTITUTIONAL: No weight loss, fever, chills, weakness or fatigue. HEENT: Eyes: No visual loss, blurred vision, double vision or yellow sclerae. Ears, Nose, Throat: No hearing loss, sneezing, congestion, runny nose or sore throat. SKIN: No rash or itching. CARDIOVASCULAR: No chest pain, chest pressure or chest discomfort. No palpitations or edema . RESPIRATORY: No shortness of breath, cough or sputum. GASTROINTESTINAL: No anorexia, nausea, vomiting or diarrhea. No abdominal pain or blood. GENITOURINARY: No burning on urination. NEUROLOGICAL: No dizziness, syncope, paralysis, ataxia. No change in bowel or bladder contr ol. + headache, neuropathy, acute confusional states without recurrence since her last visit in July. MUSCULOSKELETAL: No muscle, back pain, joint pain or stiffness. PSYCHIATRIC: + Panic syndrome, acute anxiety syndrome, bipolar disorder Neurological Examination: Vitals: 09/16/18 0944 BP: 110/76 Pulse: 100 Resp: 18 PainSc: 8 PainLoc: Generalized Mental status: The patient is alert, attentive, and oriented. Speech is clear and fluent with good repetit ion, comprehension, and naming. Cranial nerves: CN II: Visual higgins are full to confrontation. Fundoscopic exam is normal with sharp discs and no vascular changes. Pupils are 4 mm and briskly reactive to light with accomodation. CN III, IV, : Gaze in conjugate. No blurred or double vision. No visual field cuts. EOM intact. CN V: Facial sensation is intact. CN VII: Face is symmetric with normal eye closure and smile. CN VII: Hearing is normal to rubbing fingers CN IX, X: Palate elevates symmetrically. Phonation is normal. CN XI: Head turning and shoulder shrug are intact CN XII: Tongue is midline with normal movements and no atrophy. Motor: There is no pronator drift of out-stretched arms. Muscle bulk and tone are normal. Strength is 5/5 bilaterally. Reflexes: Reflexes are trace to absent throughout Sensory: Light touch, pinprick, position sense, and vibration sense are impaired in bilateral lower extremities in stocking distribution. Coordination: Rapid alternating movements and fine finger movements are intact. There is no dysmetria on ikigzu-zb-ubdt and ddhk-jtpz-axeu. There are no abnormal or extraneous movements. Romberg is absent. Gait/Stance: Wide-based stance, antalgic gait, unable to tandem gait Clinical Impression: ICD-10-CM ICD-9-CM 1. Intractable migraine with aura without status migrainosus G43.119 346.01 BOTOX INJECTION PAIN CLINIC PROCEDURE 2. Confusion and disorientation R41.0 780.97 3. Diabetic polyneuropathy associated with type 2 diabetes mellitus (HCC) E11.42 250.60 357.2 Plan: Migraine headaches: Continue taking verapamil, venlafaxine and Lyrica for headache prophyla xis. The patient has also failed therapy with beta blockers and additional antidepressants and antiseizure medications. The patient is unable to take any additional antidepressant me dications due to her psychiatric history. The patient continues to experience migraine head aches greater than 15-20 days per month, more than 10-15 hours per day for greater than 3 ye ars. The patient would be a good candidate for Botox injections to help with migraine proph ylaxis. The patient should have botox injections done at the next available time. Ensure p luis headache hygiene. This includes: ? Avoiding skipping meals or foods that may trigger a headache for you. ? Ensure adequate sleep (6-8 hours per night). Avoid changes in sleeping pattern such as o roberto sleeping, napping, or sleep deprivation. ? Manage stressors at home, work and with your family/friends that can contribute to headac he development. ? Avoid environmental triggers such as pollution, bright light, or extreme temperature vela ges. ? Ensure adequate hydration. ? Exercise regularly. For example, aerobic exercise for at least 30 minutes three times a w [place] will help reduce frequency or severity of migraine. ? Avoid alcohol and caffeine. Acute confusional state: The patient should continue to follow up with her PCP. Her sympto ms at her last visit in July for consistent with her acute confusional states per the francesca nt's report. The patient is experiencing acute hypoxemia/hypoxia during her last visit. We discussed that low levels of oxygen can contribute to acute confusional states. The tobin win should continue to follow with her PCP to manage her chronic lung issues. She has also ex perienced significant rapid weight loss over the last several months. We discussed that the patient has an appointment with her PCP next week and should follow up with her on both of these issues. The patient verbalizes understanding and is agreeable to this plan. Peripheral neuropathy: The patient reports that her pain in her lower extremities is not cu rrently problematic for her. She does continue to take Lyrica and venlafaxine as well as fu ture tense patches for her chronic pain. The patient should continue taking his medications as previously prescribed by her PCP. We also discussed ebfm-syo-syzaugy medications which could help with her symptoms including CBD oil, Dionicio Emu Oil, essential oils, capsaicin cream and anodyne therapy. Plan to follow up in 4-5 months and is next available with Dr. Samayoa. ANGELA Bonilla Electronically signed This note was transcribed using voice recognition software. There may be speech recognitio n errors which escaped detection during review. documented in thi s encounter Plan of Treatment +--------+---------+ + + + | Date | Type | Specialty | Care Team | Description | +--------+---------+ + + + | 09/27/ | Office | Pulmonology | Navdeep Grande, | | | 2019 | Visit | | [address] | | | | | | [place] | | | | | | [address] | | | | | | | | +--------+---------+ + + + | 11/05/ | Office | Neurology | Tariq, | | | 2019 | Visit | | [address]ELA [address] | | | | | | [address] [facility] [place], | | | | | | [place] [address] | | | | | | [phone] | | | | | | | | +--------+---------+ + + + documented as of this encounter Results BOTOX INJECTION PAIN CLINIC PROCEDURE (12/02/2018 11:15 AM PDT) + + + | Narrative | Performed At | + + + | Jimbo Samayoa MD 12/02/2018:17 Kait Min | | | 12/02/2018 PROCEDURE: BOTOX INDICATION: Intractable migraine with | [...] | | Sincerely, Jimbo Samayoa M.D. Neurologist [phone] | | | Electronically signed | | + + + documented in this encounter Visit Diagnoses + + | Diagnosis | + + | Intractable migraine with aura without status migrainosus - Primary Migraine with | | aura, with intractable migraine, so stated, without mention of status migrainosus | + + | Confusion and disorientation | + + | Diabetic polyneuropathy associated with type 2 diabetes mellitus (HCC) | + + documented in this encounter
--- OUTSIDE RECORDS SUMMARY | ~2019-09-02 | XMS | Encounter Summary ---
Demographics + + + | Address | [address] | | | [place] [address] | + + + | Home Phone [...] | | | | | [place] [address] | | + + + + + | Robson Min | ECON | Unknown | | + + + + + | Isabella Whitehead | ECON | Unknown | | + + + + + | Seven Neff | ECON | Unknown | | + + + + + Care Team Providers + +------+ + | Care Accounts Payable Payroll Coordinator Name | Role | Phone | + +------+ + | Juanito Avery PCP | | + +------+ + Encounter Details +--------+--------+ + + + | Date | Type | Department | Care Team | Description | +--------+--------+ + + + | 03/04/ | Intake | [facility] | | N/A | | 2020 | | [address] | | | | | | [address] | | | | | | [place] | | | | | | [address] | | | | | | [phone] | | | +--------+--------+ + + + [...] [place] | | | | | | [id number] | | | | | | | | +--------+---------+ + + + | 11/05/ | Office | Neurology | Tariq, | | | 2019 | Visit | | [address] | | | | | | [address] [facility] [place], | | | | | | [place] [address] | | | | | | [phone] | | | | | | | [...]
--- OUTSIDE RECORDS SUMMARY | ~2019-09-02 | XMS | Encounter Summary ---
Demographics + + + | Address | [address] | | | [place] [address] | + + + | Home Phone [...] | | | | | [place] [address] | | + + + + + | Robson Escobar | ECON | Unknown | | + + + + + | Isabella Whitehead | ECON | Unknown | | + + + + + | Seven Neff | ECON | Unknown | | + + + + + Care Team Providers + +------+ + | Care Lumber Racker Name | Role | Phone | + +------+ + | Bart Ba DO | PCP | | + +------+ + Encounter Details +--------+ + + + + | Date | Type | Department | Care Team | Description | +--------+ + + + + | 03/21/ | Hospital | [facility] | Luis Birmingham, | NSTEMI (non-ST | | 2013 - | Encounter | [facility] | MD [address] | elevated myocardial | | | | CARE FLOOR [address] | [place] [address] | infarction) ([facility]); | | 03/24/ | | [address] | [phone] | Current smoker; RA | | 2012 | | [place], [place] | | (rheumatoid | | | | [address] | | arthritis) ([facility]); | | | | [phone] | | ARF (acute renal | | | | | | failure) ([facility]); | | | | | | Bacterial pneumonia, | | | | | | unspecified; COPD | | | | | | exacerbation ([facility]); | | | | | [...] | | | | | ([facility]); Tobacco | | | | | | abuse; Diabetes | | | | | | mellitus type II; | | | | | | Hyperlipidemia; | | | | | | Hypertension; | | | | | | Bipolar 2 disorder | | | | | | ([facility]) | +--------+ + + + + Social [...] Date of Service: 03/24/13 105 Status: Signed Cook Barbecue: Arcadio Cobian MD (Physician) [facility] Service: Hospitalist Physician Discharge Summary Pt: Carline Escobar AGE/SEX: 42 y.o. female ROOM: [facility]4447-1 PCP: BART BA : 1970 Admit date: [...] and had elevated Trop[ with possible NSTE AL and possible underlying PNA Bacterial pneumonia, unspecified [...] normal. Judgment normal. LABS: Lab 03/24/13 0403 03/22/13 0236 03/21/13 2058 WBC 8.7 7.9 10.3 HGB 13.4 13.3 14.0 HCT 39.3 39.2 41.4 PLT 262 298 273 NEUTOPHILPCT 48.3 75.9 -- MONOPCT 16.5 13.2 -- Lab 03/24/13 0403 03/23/13 1208 03/22/13 0236 03/21/132057 NA 130* 136 126* -- K 4.0 [...] -- -- -- -- Lab 03/24/13 0403 03/22/13 02303/21/132057 MG 1.2* 1.7 1.2* Lab 03/22/13 0916 03/22/13 02303/21/132057 APTT 26 28 24 INR -- 1.0 1.0 PTT -- -- -- Lab 03/22/13 0916 03/22/13 0236 03/21/132057 [...] 1 tablet by mouth daily. Nebulizer (medical billing assistant) Dispense and provide instruction as needed. CONTINUE taking these medications azaTHIOprine 50 MG tablet Commonly known as: IMURAN BUTALBITAL COMPOUND/ASA 50-325-40 MG per tablet Generic drug: mtdpdtpcxj-kclylit-fnzuhlox gabapentin 600 MG tablet Commonly known as: [...] are the prescriptions that you need to brain picker. You may get these medications from any pharmacy. aspirin 81 MG EC tablet fluticasone-salmeterol 250-50 MCG/DOSE ipratropium-albuterol 0.5-2.5 mg/3mL levofloxacin 500 MG tablet Nebulizer (medical billing assistant) Activity: activity as tolerated Diet: regular diet [...] | 0 | 10/08/19 | | | ustifquflj-gwnukkk-g | every 6 hours as | | [...] 03/24/131552 Date of Service: 03/24/131552 Status: Signed Cook Barbecue: Bernardo Avery RN (Registered Nurse) Discharge instructions reviewed with pt and family. IV removed, cannula intact. No complain s, concerns or questions at this time. Discharged to home/self care per private vehicle. BERNARDO AVERY RN oster Ayanna MSW - 03/24/2013 3:05 PM PST Case Management by EMA Fishman at 03/24/13 1505 Author: EMA Fishman Service: (none) Author Type: Cloth Shearing Supervisor Filed: 03/24/13 1513 Date of Service: 03/24/13 1505 Status: Signed Cook Barbecue: EMA Fishman (Cloth Shearing Supervisor) 03/22/13 1100 Discharge Planning Evaluation Living Arrangements [...] this time. Community resources utilized / needed: [employer] for home 02 Assistance in transportation: family Identification of any specific education / training: Barriers to Discharge / Alternative housing needed: Awaiting portable 02 tank to transfer h ome with. Anticipated DCP: Home with new home 02 set up through [facility]. AYANNA BERNARD onversion Translasha hale, Provider Unknown - 03/24/2013 2:36 PM PSTFormatting of this note might be different fr om the original. Progress Notes by Crystal Dunaway RRT at 03/24/13 7206 Author: Crystal Dunaway RRT Service: (none) Author Type: Registered Respiratory Therap ist Filed: 03/24/13 1436 Date of Service: 03/24/13 1436 Status: Signed Cook Barbecue: Crystal Dunaway RRT (Registered Respiratory Therapist) [facility] Department of Respiratory Fdc Oxygen Evaluation (Evaluation is valid for 48 [...] 03/24/13848 Date of Service: 03/24/13846 Status: Signed Cook Barbecue: Vinny Strickland MD (Physician) Nuc images reviewed, they are normal. I think small troponin elevation was not due to an AL, but to hypoxia from respiratory issu es. [...] 03/23/131907 Date of Service: 03/23/131852 Status: Signed Cook Barbecue: Pedro Hester MD (Physician) PCP : BART [...] or diarrhea. No shortness or breath, chest catailna n, cough. No dysuria, urgency, frequency, gross [...] charting completed later after rounds. Dictation software, [employer], used which may contain error for similar sounding words even af ter review. Personal communication requested for any clarification. Prognosis guarded in view of multiple comorbid illnesses and RICHARD including but not limited to CKD and . Arcadio Rocha - 03/23 11:46 AM PST Progress Notes by Arcadio Cobian MD at 03/23/13 1146 Author: Arcadio Cobian MD Service: Hospitalist Author Type: Physician Filed: 03/23/13 1153 Date of Service: 03/23/13 1146 Status: Signed Cook Barbecue: Arcadio Cobian MD (Physician) [facility] Service: Hospitalist Progress Note Pt: Carline Escobar AGE/SEX: 42 y.o. female ROOM: 44/4447-1 : 1970 PCP: BART BA ADMIT DATE: 03/21/2013 TODAY'S DATE: 03/23/2013 Hospital Day/Hospital Course: LOS: 2 days 42 YO F with PMHof HTN, DM2, RA came with SOB and and had elevated Trop[ with possible NSTE AL and possible underlying PNA SUBJECTIVE: Patient seen [...] C) Axillary 87 18 83 % - 03/22/132157 - - - 94 - 94 % - 03/22/132146 - - - 90 18 96 % [...] Behavior is normal. Judgment normal. LABS: Lab 03/22/13 0236 03/21/132057 WBC 7.9 10.3 HGB 13.3 14.0 HCT 39.2 41.4 PLT 298 273 NEUTOPHILPCT 75.9 -- MONOPCT 13.2 -- Lab 03/22/13 0236 03/21/132057 NA 126* 124* K 5.0* 5.1* CL 96* 93* CO2 23 19* BUN 19 23 CREATININE 0.91 1.13* CALCIUM -- -- PROT 6.6 7.1 BILITOT 0.4 0.6 ALKPHOS -- -- ALT 84* 111* AST 75* 135* GLUCOSE -- -- Phosphorus: Lab Results Component Value Date PHOS 3.3 03/22/2013 Lab 03/22/13 0236 03/21/132057 MG 1.7 1.2* Lab 03/22/13 0916 03/22/1323503/21/132057 APTT 26 28 24 INR -- 1.0 1.0 PTT -- -- -- Lab 03/21/132057 TSH 0.17* T3FREE -- FREET4 -- Lab 03/22/13 0916 03/22/136 03/21/132057 CKTOTAL 117 150 241* TROPONINI 0.434* [...] and had elevated Trop[ with possible NSTE AL and possible underlying PNA NSTEMI (non-ST elevated myocardial infarction): Though Trop is slightly elevated but Doubt she had real AL? I DW Dr. Strickland and will do [...] ARCADIO COBIAN MD, FACP 03/23/2013 11:46 AM Vinny Rich MD - 03/23/2013 8:49 AM PST Progress Notes by Vinny Strickland MD at 03/23/13 0849 Author: Vinny Strickland MD Service: (none) Author Type: Physician Filed: 03/23/13 0852 Date of Service: 03/23/13 0849 Status: Signed Cook Barbecue: Vinny Strickland MD (Physician) No complaints. Mildly [...] Date of Service: 03/22/13 1306 Status: Signed Cook Barbecue: Arcadio Cobian MD (Physician) [facility] Service: Hospitalist Progress Note Pt: Carline Escobar AGE/SEX: 42 y.o. female ROOM: 44/4447-1 : 1970 PCP: BART BA ADMIT DATE: 03/21/2013 TODAY'S DATE: 03/22/2013 Hospital Day/Hospital Course: LOS: 1 day 42 YO F with PMHof HTN, DM2, RA came with SOB and and had elevated Trop[ with possible NSTE AL and possible underlying PNA SUBJECTIVE: Patient seen [...] (03/22/13 1051) DISCONTD: sodium chloride Stopped (03/21/13 1074) PRN Medications acetaminophen, acetaminophen, dextrose, dextrose, dextrose, [...] - 82 - 93 % - - 03/21/13 2248 184/107 mmHg 98.1 F (36.7 C) Oral 78 20 95 % 1.65 m (5' 4.96") 104 kg ( 229 lb 4.5 oz) 03/21/13 2156 162/91 mmHg - - 81 16 92 % - - 03/21/13 2051 178/106 mmHg - - 83 20 93 % - - 03/21/13 1922 149/83 mmHg 98.3 F (36.8 C) Oral [...] 03/22/1323503/21/132057 MG 1.7 1.2* Lab 03/22/13 0916 03/22/13 [...] and had elevated Trop[ with possible NSTE AL and possible underlying PNA NSTEMI (non-ST elevated [...] Oxana Gamino RD Service: (none) Author Type: Supervisor Ore Dressing Filed: 03/22/13 1037 Date of Service: 03/22/13 1025 Status: Signed Cook Barbecue: Oxana Gamino RD (Supervisor Ore Dressing) Elevated blood sugars, was 307 this am. [...] remain elevated. Oxana Gamino RD, CDE, Inpatient Supervisor Ore Dressing 03/22/2013 10:37 AM onversion Transaction , Provider Unknown - 03/21/2013 11:16 PM PST Progress Notes by Loni Hameed RPH at 03/21/132315 Author: Loni Hameed RPH Service: (none) Author Type: Pharmacist Filed: 03/21/132315 Date of Service: 03/21/132315 Status: Signed Cook Barbecue: Loni Hameed RPH (Pharmacist) Clinical Pharmacy Note: Renal Monitoring & Extended Interval Zosyn Dosing Carline Escobar 42 y.o. female Height: 165 cm Weight: 104 kg CREATININE: 1.13 mg/dL ABNORMAL (03/21/132057) Estimated creatinine clearance - Cockcroft-Gault CrCl: 78.3 mL/min No results found for this basename: NEUTROABS Pharmacy dosing for renal function per Dr. [...] in renal function and adjust accordingly. Loni Hameed PharmD 03/21/2013 11:16 PM docume nted in this encounter Plan of Treatment +--------+---------+ + + + | Date | Type | Specialty | Care Team | Description | +--------+---------+ + + + | 09/27/ | Office | Pulmonology | Navdeep Grande, | | | 2019 | Visit | | MD Cely GORE | | | | | | [place] | | | | | | [address] | | | | | | | | +--------+---------+ + + + | 11/05/ | Office | Neurology | Tariq, | | | 2019 | Visit | | Theo, DEPUTY CLERK [address] | | | | [address] [facility], | | | | | | [place] [address] | | | | | | [phone] | | | | | | | [...] | + + + | CARLINE ESCOBAR NV MYOCARDIAL PERFUSION SPECT - STRESS AND REST [...] Hanks Conversion - 12/09/2018 8:13 PM PDT CARLINE ESCOBARNV MYOCARDIAL PERFUSION | | SPECT - STRESS [...] 1970 | | | Performing Physician: Vinny Strickland, | | | MD | | | INDICATIONS ACUTE AL PNEUMONIA, COPD CONCLUSIONS | | | 1. [...] | posterior mitral valve leaflet. Tricuspid Valve: Ekiw-gg-sqxytvor | | | tricuspid regurgitation present. Tricuspid [...] 72.21 ml D-E Excursion: 1.51 cm E-F Monona: | | | 0.07 m/s EPSS: 0.73 [...] TV A Manjeet: 0.73 m/s TV Dec Monona: | | | 6.25 m/s2 TV Dec Time: 121.02 ms TV E Manjeet: 0.75 m/s TV E/A | | | Ratio: 1.03 Watch Assembly Inspector: ERASMO Authenticated by: Vinny | | | Marco A NEFF Report Date/Time: 03-22-2013 12:44:09 | | + + + + + | Procedure Note | + + | Demario, Rad Conversion - 12/09/2018 8:13 PM PDT Patient Name: Anupam ESCOBAR of | | : 1970 Performing Physician: Vinny Strickland, | | INDICATIONS A | | CUTE AL PNEUMONIA, COPD CONCLUSIONS 1. Good pump, moderate [...] posterior mitral valve leaflet.Tricuspid Valve: | | Wbjs-iz-mlogyvhn tricuspid regurgitation present.Tricuspid Valve: There is moderate [...] Major: 4.31 cmRVIDd: 3.51 cmLAAs A2C: 17.11 zw7SPRBS A-L | | A2C: 55.22 mlLALs A2C: 4.50 cmAo Diam: 3.51 cmAV Cusp: 2.42 cmLA Diam: 4.02 | | cmLA/Ao: 1.14%FS: 33.70 %EDV(Teich): 115.90 mlEF(Teich): 62.30 %ESV(Teich): | | 43.69 mlIVSd: 0.89 cmIVSs: 1.28 cmLVIDd: 4.95 cmLVIDs: 3.28 cmLVPWd: 0.89 | | cmLVPWs: 1.50 cmSV(Teich): 72.21 mlD-E Excursion: 1.51 cmE-F Monona: 0.07 | | m/sEPSS: 0.73 cmIVC diameter: 2.47 cmIVC collapse: 1.11 cmIVC % collapse: 52.36 | | %HR: 78.78 BPMAV maxP.53 mmHgAV meanP.92 mmHgAV Vmax: 1.46 m/Viri Vmean: | | 1.06 m/Viri VTI: 33.32 cmAVA Vmax: 3.14 cm2AVA (VTI): 2.80 uk7UQGH Dopp: 3.45 | | l/rdnq2AUQP Dopp: 7.15 l/minHR: 76.55 BPMLVOT maxP.44 mmHgLVOT [...] 3.55 m/sTV A Manjeet: 0.73 m/sTV Dec Monona: 6.25 m/s2TV Dec Time: 121.02 msTV E Manjeet: | | 0.75 m/sTV E/A Ratio: 1.03 Watch Assembly Inspector: KVWAuthenticated by: Vinny Strickland | | MDReport Date/Time: [...] | |D-E Excursion: 1.51 cm | |E-F Monona: 0.07 m/s | |EPSS: 0.73 cm | [...] A Manjeet: 0.73 m/s | |TV Dec Monona: 6.25 m/s2 | |TV Dec Time: 121.02 ms | |TV E Manjeet: 0.75 m/s | |TV E/A Ratio: 1.03 | | | |Watch Assembly Inspector: KVW | |Authenticated by: Vinny Strickland MD [...] Conversion - 12/09/2018 8:13 PM PDT CARLINE CHASE1970 42 years FemaleCT | | CHEST WO JHBQICKH68/4/2013 7:10 AM HISTORY: Shortness of breath, hypoxia [...] + + | Historically converted procedure from [facility] Epic environment | EXTERNAL LAB | + [...] Conversion - 12/09/2018 8:13 PM PDT CARLINE LUZXR CHEST 1 VIEW03/21/2013 | | 8:57 PM [...] (500), | | | | | | associate editor NICK GOMEZ (2) | | | | | | on 03/22/2013 5:26:12 AM | | | | | | | | | | + + + + + + + + | Specimen | + + | | + + + + + | Narrative | Performed At | + + + | Historically converted procedure from [facility] Epic environment | EXTERNAL LAB | + + + + +---------+ + + | Performing | Address | City/State/Zipcode | Phone Number | | Organization | | | | + +---------+ + + | EXTERNAL LAB | | | | + +---------+ + + documented in this encounter Visit Diagnoses + + | Diagnosis | + + | NSTEMI (non-ST elevated myocardial infarction) ([facility]) Acute myocardial infarction, | | subendocardial infarction, episode of care unspecified | + + | Current smoker Tobacco use disorder | + + | RA (rheumatoid arthritis) ([facility]) Rheumatoid arthritis | + + | ARF (acute renal failure) ([facility]) Acute kidney failure, unspecified | + + [...]
--- OUTSIDE RECORDS SUMMARY | ~2019-09-02 | XMS | Encounter Summary ---
Demographics + + + | Address | [address] | | | [place] [address] | + + + | Home Phone [...] + + + + + | Isaeblla Min | ECON | [address] | | | | | [place] [address] | | + + + + + | Robson Min | ECON | Unknown | | + + + + + | Isabella Whitehead | ECON | Unknown | | + + + + + | Seven Neff | ECON | Unknown | | + + + + + Care Team Providers + +------+ + | Care Intake Worker Name | Role | Phone | [...] Authorized | | Cardiology | Diagnoses | Monica Avery | | | | | 3 month f/u | Juanito Lamar | DO Laine | | | | | w/echo and | [address] | [address] | | | | | monitor done | Rivka Hanna | DR [address] | | | | | Procedures | [place], | [place], [place] | | | | | OFFICE | [place] [address] | [address] Phone: | | | | | VISIT | Phone: | [phone] | | | | | REGULAR | [phone] | Fax: | | | | | | Fax: | [phone] | | | | | | [phone] | | + +--------+ + + + + Encounter Details +--------+---------+ + + + | Date | Type | Department | Care Team | Description | +--------+---------+ + + + | 04/06/ | Office | [facility] | Laine Batista DO | Hypertension, | | 2019 | Visit | CARDIOLOGY [place] | [address] | unspecified type | | | | [address] | [place], [place] | (Primary Dx); Type 2 | | | | [address] | [id number] | diabetes mellitus | | | | [place], [place] | | with hyperosmolarity | | | | [address] | | without coma, | | | | [phone] | | without long-term | | | [...] DO - 04/06/2019 1:[address] [facility] Cardiology Cardiology Consult Note Reason for Consultation: [...] changes Acid reflux disease Angina pectoris ([facility]) Arrhythmia Bipolar 1 disorder ([facility]) CHRONIC TENSION HEADACHE Classical migraine without mention of intractable migraine Diabetes mellitus, type 2 ([facility]) Empyema lung ([facility]) 2006 right GI bleeding Hypercholesterolemia Hypertension Hypothyroidism IBS (irritable bowel syndrome) Knee pain Lymphedema Myocardial infarction ([facility]) Nausea and vomiting Nocturia Obesity Panic anxiety syndrome Pneumonia Pyoderma gangreosum-LE RA (rheumatoid arthritis) ([facility]) Followed by Dr. Becerra Rheumologist in [place] Reflux esophagitis Restless leg syndrome Urinary [...] mouth 2 times daily. Respiratory Therapy Supplies [facility] Portable oxygen concentrator to provide O2 at [...] file Gets together: Not on file Attends mosque service: Not on file Active member of [...] [place] | | | | | | [address] | | | | | | | | +--------+---------+ + + + | 11/05/ | Office | Neurology | Tariq, | | | 2019 | Visit | | [address] | | | | | [address] [place], | | | | | | [place] [address] | | | | | | [phone] | | | | | | | | +--------+---------+ + + + documented as of this encounter Procedures + +--------+ + + + | Procedure Name | Priori | Date/Time | Associated Diagnosis | Comments | | | ty | | | | + +--------+ + + + | ECHO-EXTERNAL SCAN | | 04/18/2019 | | Results for this | | | | 12:00 AM | | procedure are in the | | | | PST | | results section. | + +--------+ + + + documented in this encounter Results ECHO-EXTERNAL SCAN (04/18/2019 12:00 AM PST) + [...]
--- OUTSIDE RECORDS SUMMARY | ~2019-09-02 | XMS | Encounter Summary ---
Demographics + + + | Address | [address] | | | [place] [address] | + + + | Home Phone [...] | | | | | [place] [address] | | + + + + + | Robson Mni | ECON | Unknown | | + + + + + | Isabella Whitehead | ECON | Unknown | | + + + + + | Seven Neff | ECON | Unknown | | + + + + + Care Team Providers + +------+ + | Care Lapper Name | Role | Phone | + [...] + + + | 03/17/ | Telephone | [facility] | Jimbo Samayoa MD | Results, Imaging | | 2018 | | HOSPITAL NEUROLOGY | [address] | | | | | CLINIC [address] | [place] | | | | | DR [address] [place], | [address] | | | | | [place] [address] | | | | | | [phone] | | | +--------+ + + + [...] [place] | | | | | | [address] | | | | | | | | +--------+---------+ + + + | 11/05/ | Office | Neurology | Tariq, | | | 2019 | Visit | | [address] | | | | | [address] [place], | | | | | | [place] [address] | | | | | | [phone] | | | | | | | | +--------+---------+ + + + documented as of this encounter Visit Diagnoses Not on filedocumented in this encounter"
--- OUTSIDE RECORDS SUMMARY | ~2019-09-02 | XMS | Encounter Summary ---
Demographics + + + | Address | [address] | | | [place] [address] | + + + | Home Phone [...] | | | | | [place] [address] | | + + + + + | Robson Min | ECON | Unknown | | + + + + + | Isabella Whitehead | ECON | Unknown | | + + + + + | Seven Neff | ECON | Unknown | | + + + + + Care Team Providers + +------+ + | Care Sports Coordinator Name | Role | Phone | + +------+ + | Bart Ba DO | PCP | | + +------+ + Encounter Details +--------+ + + + + | Date | Type | Department | Care Team | Description | +--------+ + + + + | 09/18/ | Abstract | [facility] | Cecilio Amato MD | | | 2013 | | GASTROENTEROLOGY | [address] | | | | | [address] [facility] | [place], [place] | | | | | [address] | [address] | | | | | [address] | [phone] | | | | | [phone] | | | +--------+ + + + [...] [place] | | | | | | [address] | | | | | | | | +--------+---------+ + + + | 11/05/ | Office | Neurology | Tariq, | | | 2019 | Visit | | [address] | | | | | | [address] [place], | | | | | | [place] [address] | | | | | | [phone] | | | | | | | [...] | | | Phosphatase | | | STAngelita SOL | | | | | | [...] + + | [facility] | [address] | [place] | | | [facility] | | [address], [facility] | | | - LABORATORY | | | | + + + + + documented in this encounter Visit Diagnoses Not on filedocumented in this encounter"
--- OUTSIDE RECORDS SUMMARY | ~2019-09-02 | XMS | Encounter Summary ---
Demographics + + + | Address | [address] | | | [place] [address] | + + + | Home Phone [...] | | | | | [place] [address] | | + + + + + | Robson Min | ECON | Unknown | | + + + + + | Isabella Whitehead | ECON | Unknown | | + + + + + | Seven Neff | ECON | Unknown | | + + + + + Care Team Providers + +------+ + | Care Heating Equipment Installer Name | Role | Phone | [...] | | | Pulmonology | respiratory | [address] | [address] | | | | | failure, | [address] | [place], | | | | | unspecified | [place] | [place] [address] | | | | | whether with | [address] | Phone: | | | | | hypoxia or | [place] | [phone] | | | | | hypercapnia | [address] | Fax: | | | | | ([facility]) | Phone: | [phone] | | | | | Procedures | [phone] | | | | | | F/U LAST | | | | | | | SEEN | | | | | | | 05/26/16 | | | +--------+--------+ + + + + Encounter Details +--------+---------+ + + + | Date | Type | Department | Care Team | Description | +--------+---------+ + + + | 10/18/ | Office | [facility] | Navdeep Grande, | COPD, mild ([facility]) | | 2018 | Visit | PULMONARY [address] | MD [address] | (Primary Dx); | | | | [place], | [place], [place] | Alveolar | | | | [place] [address] | [address] | hypoventilation | | | | [phone] | | | +--------+---------+ + + + [...] No; Counseling Given: Yes | | Comments: 2/7/17: Currently using Chantix | + + + [...] PDT Fluticasone; Salmeterol inhalation powder Brand Names: Eveline What is this medicine? FLUTICASONE; SALMETEROL (floo [...] information carefully each time. Talk to your shop mechanic helper regarding the use of this medicine in children. Special care may be needed. What side effects may I notice from receiving this medicine? Side effects that you should report to your doctor or health manager of care as soon as p ossible: allergic reactions like skin rash or hives, swelling of the face, lips, or tongue chest pain dizziness or lightheaded fever or chills irregular heartbeat vision problems Side effects that usually do not require medical attention (report to your doctor or health manager of care if they continue or are bothersome): coughing, [...] check ups. Tell your doctor or health manager of care if yo ur symptoms do not get [...] have surgery tell your doctor or health manager of care that you are using this medicine. Try [...] and was hospitalized for 4 days at [facility] with respiratory failure/COPD exacerbation. She was [...] 50,000 Units by mouth Once a w [place]., Disp: , Rfl: HYDROcodone-acetaminophen (NORCO) 7.5-325 mg [...] supplemental oxygen 1 L per min at [facility] while sleeping. Total duration of the patient's [...] 4 weeks' ti me. CC: Bart Ba, DO documented in this [...] [place] | | | | | | [address] | | | | | | | | +--------+---------+ + + + | 11/05/ | Office | Neurology | Tariq, | | | 2019 | Visit | | [address] | | | | | [address] [place], | | | | | | [place] [address] | | | | | | [phone] | | | | | | | [...] | signed by: Navdeep Grande MD 11/19/2017 12:24[facility] | [facility] | | |physiology. Lung volume testing is [...] Grande MD 11/19/2017 12:24 | | |[facility] | | + + + documented in this encounter Visit Diagnoses + + | Diagnosis | + + | COPD, mild (HCC) - Primary Chronic airway obstruction, not elsewhere classified | + + | Alveolar hypoventilation Other dyspnea and respiratory abnormality | + + documented in this encounter
--- OUTSIDE RECORDS SUMMARY | ~2019-09-02 | XMS | Encounter Summary ---
Demographics + + + | Address | [address] | | | [place] [address] | + + + | Home Phone [...] | | | | | [place] [address] | | + + + + + Care Team Providers + +------+ + | Care Rod Filler Name | Role | Phone | + +------+ + PCP | Unavailable | + +------+ + Encounter Details +--------+ + + + + | Date | Type | Department | Care Team | Description | +--------+ + + + + | 10/31/ | Respiratory | | Other, Faculty | | | 2006 | Therapy | | [phone] | | +--------+ + + + + [...] this | | TREATMENTS | e | 10:00 PM | | procedure are in the | | | | PDT | | results section. | + +--------+ + + + documented in this encounter Results [facility] (10/31/2005 10:00 PM PDT) + + + + + + | Component | Value | Ref Range | Performed | Pathologist | | | | | At | Signature | + + + + + + | [facility] | patient will do PEP on | | | | | TREATMENTS | her own to prevent | | | | | | atelectasis but | | | | | | otherwise PEPwith RT is | | | | | | now not indicated per | | | | | | CXR 10/31. PATIENTS PAIN | | | | | | ASSESSED AND WAS ZERO ON | | | | | | A SCALE OF ZERO TO 10. | | | | | | PEP THERAPY . | | | | | | DIMINISHED RIGHT BASE . | | | | | | GOOD NON-PRODUCTIVE | | | | | | COUGH: NO | | | | | | IMPROVEMENTAFTER | | | | | | TREATMENT Lisa Wahl, | | | | | | PRODUCT MGR | | | | + + + [...] [facility] | [address] | [place], [place] | | | DIAGNOSTICS - | [place] | [address] | | | PULMONARY FUNCTION | | | | + + + + + documented in this encounter Visit Diagnoses Not on filedocumented in this encounter"
--- OUTSIDE RECORDS SUMMARY | ~2019-09-02 | XMS | Encounter Summary ---
Demographics + + + | Address | [address] | | | [place] [address] | + + + | Home Phone [...] | | | | | [place] [address] | | + + + + + Care Team Providers + +------+ + | Care Green End Department Supervisor Name | Role | Phone | + +------+ + PCP | Unavailable | + +------+ + Encounter Details +--------+ + + + + | Date | Type | Department | Care Team | Description | +--------+ + + + + | 10/31/ | Respiratory | | Other, Faculty | | | 2006 | Therapy | | [phone] | | +--------+ + + + + [...] Wahl, | | | | | | COUNTER PERSON | | | | + + + [...] [facility] | [address] | [place], [place] | | | DIAGNOSTICS - | [place] | [address] | | | PULMONARY FUNCTION | | | | + + + + + documented in this encounter Visit Diagnoses Not on filedocumented in this encounter"
--- OUTSIDE RECORDS SUMMARY | ~2019-09-02 | XMS | Encounter Summary ---
Demographics + + + | Address | [address] | | | [place] [address] | + + + | Home Phone [...] Author | [facility] | | | and [place] | + [...] | | | | | [place] [address] | | + + + + + | Robson Min | ECON | Unknown | | + + + + + | Isabella Whitehead | ECON | Unknown | | + + + + + | Seven Neff | ECON | Unknown | | + + + + + Care Team Providers + +------+ + | Care Galvanizing Pot Runner Name | Role | Phone | + [...] [address] | | | | | ([facility]) | Rivka Hanna | [address], | | | | | Procedures | [place], | [place] [address] | | | | | F[address] | [place] [address] | Phone: | | | | | DARRICK GRANDE | Phone: | [phone] | | | | | 07/12/19 | [phone] | Fax: | | | | | | Fax: | [phone] | | | | | | [phone] | | + +--------+ + + + + Encounter Details +--------+---------+ + + + | Date | Type | Department | Care Team | Description | +--------+---------+ + + + | 07/26/ | Office | [facility] | Navdeep Grande, | Alveolar | | 2020 | Visit | PULMONARY [address] | MD [address] | hypoventilation | | | | [place], | [place], [place] | (Primary Dx); COPD, | | | | [place] [address] | [address] | frequent | | | | [phone] | | exacerbations (HCC); | | | [...] lean your hands with an alcohol-based hand receiving barn custodian that contains 60 to 95% alcohol, coveri ng all surfaces of your hands and rubbing them together until they feel dry. Soap and water should be used preferentially if hands are visibly dirty. Clean your hands often Wash your hands often with soap and water for at least 20 seconds or clean your hands with an alcohol-based hand receiving barn custodian that contains 60 to 95% alcohol, covering [...] call the local health depart ent at [phone]. Persons who are placed under active monitoring [...] isolation precautions should be made on a eadd-yc-xmvs basis, in consultation with health care providers [...] is getting sicker, call his or her [facility] provider and tell them that the patient has laboratory-confirmed COVID-19. This will h elp the healthcare provider s office take steps to keep other people in the office or wait ing room from getting infected. Ask the healthcare provider to call the local or [facility] department for additional guidance. If the patient [...] 0 seconds or use an alcohol-based hand receiving barn custodian that contains 60 to 95% alcohol, covering [...] with soap and water or alcohol-based hand receiving barn custodian. Next, remove and dispose of facemask, and immediately clean your hands again with soap and water or alco hol-based hand receiving barn custodian. ? Avoid sharing household items with the [...] soap and water or an alcohol-based hand receiving barn custodian) immediately a fter removing your gloves. o [...] and w ater or an alcohol-based hand receiving barn custodian) immediately after handling these items. Soap and wa ter should be used preferentially if hands are visibly dirty. ? Discuss any additional questions with your state or local health department or healthcare provider. For more helpful tips visit our Coronavirus site Stay Informed [facility] of Health and Equipment Installer [place] Department of Public Health [facility] Department of Public Health and Human Services [facility] documented in this encounter Progress Notes Navdeep [...] Ms. Min was hospitalized initially at [facility] and subs equently at [facility] in early June. 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 eBcerra Rheumologist in [place] Reflux esophagitis Restless leg syndrome Urinary [...] Gluc Sensor (FREESTYLE HUAN 14 DAY SENSOR) [facility] [place], , Disp: , Rfl: diclofenac (VOLTAREN) 1% GEL, Apply 2 g topically 3 times daily. feet, Disp: , Rfl: DOK 100 MG tablet, Take 100 mg by mouth 2 times daily., Disp: , Rfl: DULoxetine (CYMBALTA) [address] capsule, Take 30 mg by mouth Daily., Disp: , Rfl: ergocalciferol (VITAMIN D-2) 50,000 units capsule, Take 50,000 Units by mouth Once a w [place]. Wednesdays., Disp: , Rfl: insulin glargine (BASAGLAR [...] 02/10/2018 INFLUENZA TRIV W/PRES(PED/ADOL/ADULT),MULTIDOSE 02/04/2011, 01/10/2015 INFLUENZA, [id number], UNSPECIFIED 03/09/2009 INFLUENZA, UNSPECIFIED FORMULATION 04/27/2000, 02/04/2011, [...] Psychiatric: Affect normal. Data: Discharge summary from [facility] dated 06/23/2019 was reviewed. Assessment 1. Frequent [...] [place] | | | | | | [address] | | | | | | | | +--------+---------+ + + + | 11/05/ | Office | Neurology | Tariq, | | | 2019 | Visit | | AN[address] Ven[address]as [address] | | | | [address] [place], | | | | | | [place] [address] | | | | | | [phone] | | | | | | | [...]
--- OUTSIDE RECORDS SUMMARY | ~2019-09-02 | XMS | Encounter Summary ---
Demographics + + + | Address | [address] | | | [place] [address] | + + + | Home Phone | | + + + | Preferred Language | Unknown | + + + | Marital Status | Single | + + + | Judaism Affiliation | Unknown | + + + | Race | Unknown | + + + | Ethnic Group | Unknown | + + + Author + + + | Author | [facility] | | | and [place] | + + + | Organization | [facility] | | [...] | | | | | [place] [address] | | + + + + + | Robson Min | ECON | Unknown | | + + + + + | Isabella Whitehead | ECON | Unknown | | + + + + + | Seven Neff | ECON | Unknown | | + + + + + Care Team Providers + +------+ + | Care Umbrella Tipper Name | Role | Phone | + [...] | Telephone | [facility] | Beth eKlly | Case Management | | 2018 | | HOSPITAL CASE | G, Case | | | | | MANAGEMENT [address] | [facility] [employer] [facility] | | | | | [address] | | | | | | [place] | | | | | | [address] | | | | | | [phone] | | | +--------+ + + + [...] [place] | | | | | | [address] | | | | | | | | +--------+---------+ + + + | 11/05/ | Office | Neurology | Tariq, | | | 2019 | Visit | | AN[address]A Ven[address]as [address] | | | | [address] [place], | | | | | | [place] [address] | | | | | | [phone] | | | | | | | [...]
--- OUTSIDE RECORDS SUMMARY | ~2019-09-02 | XMS | Encounter Summary ---
Demographics + + + | Address | [address] | | | [place] [address] | + + + | Home Phone | | + + + | Preferred Language | Unknown | + + + | Marital Status | Single | + + + | Bahai Affiliation | CHR | + + + [...] | | | | | [place] [address] | | + + + + + Care Team Providers + +------+ + | Care Marketing And Development Coordinator Name | Role | Phone | + +------+ + PCP | Unavailable | + +------+ + Encounter Details +--------+ + + + + | Date | Type | Department | Care Team | Description | +--------+ + + + + | 05/15/ | Results | | Other, Faculty | | | 2000 | Only | | [phone] | | +--------+ + + + + [...] CLIA certified | | | lab at [facility]. The patient will not be charged. Reviewed by Jana | | | Mariola, Ph.D. | | + + + + + + + + | Performing | Address | City/State/Zipcode | Phone Number | | Organization | | | | + + + + + | [facility] DEPARTMENT | [address] | [place] [address] | | | PATHOLOGY | [address] | | | + + + + + | [facility] DEPARTMENT OF | [address] | [place] [address] | | | PATHOLOGY | [address] [address] | | | + + + + + documented in this encounter Visit Diagnoses Not on filedocumented in this encounter"
--- OUTSIDE RECORDS SUMMARY | ~2019-09-02 | XMS | Encounter Summary ---
Demographics + + + | Address | [address] | | | [place] [address] | + + + | Home Phone [...] | | | | | [place] [address] | | + + + + + | Robson Min | ECON | Unknown | | + + + + + | Isabella Whitehead | ECON | Unknown | | + + + + + | Seven Neff | ECON | Unknown | | + + + + + Care Team Providers + +------+ + | Care Duralumin Mechanic Name | Role | Phone | [...] | Visit | HOSPITAL NEUROLOGY | Theo[address] | with aura without | | | | CLINIC [address] [place], | status migrainosus | | | | [address] [place], | [place] [address] | (Primary Dx); | | | | [place] [address] | [phone] | Confusion and | | | | [phone] | | disorientation; | | | | [...] before each headache. Show this to your [facility] provider to help find the cause [...] Difficulty talking or seeing Date Last Reviewed: 11/18/201519992120-8066 [employer]. [address] [place] [address]. All righ ts reserved. This information is [...] early if it happens. Date Last Reviewed: 08/17/201719996552-1524 [employer]. [address] [place] [address]. All righ ts reserved. This information is [...] Nonsteroidal anti-inflammatory drugs (such as ibuprofen, available dzom-wua-kkxanjl) ? Beta-blockers ? Anticonvulsants ? Tricyclic antidepressants [...] of caffeine you consume. Date Last Reviewed: 08/17/201719995789-7763 [employer]. [address] [place] [address]. All righ ts reserved. This information is not intended as a substitute for professional medical care. Always follow your healthcare professional's instructions. documented in this encounter Progress Notes Theo Potter FNP - 09/16/2018 9:45 AM PDT Patient: Kait Min Medical Record: [id number] Date of Services: 09/16/2018 Referring Doctor: TIMOTHY [...] are intact. There is no dysmetria on nekiwi-sw-rsgm and nrsv-mauo-tnro. There are no abnormal or extraneous movements. [...] least 30 minutes three times a w chipewwa will help reduce frequency or severity of [...] prescribed by her PCP. We also discussed ylyj-cvd-qtvalwp medications which could help with her symptoms [...] [place] | | | | | | [address] | | | | | | | | +--------+---------+ + + + | 11/05/ | Office | Neurology | Tariq, | | | 2019 | Visit | | [address] | | | [address] [place], | | | | | | [place] [address] | | | | | | [phone] | | | | | | | [...] | | Sincerely, Jimbo Samayoa M.D. Neurologist [phone] | | | Electronically signed | | [...]
--- OUTSIDE RECORDS SUMMARY | ~2019-09-02 | XMS | Encounter Summary ---
Demographics + + + | Address | [address] | | | [place] [address] | + + + | Home Phone [...] | | | | | [place] [address] | | + + + + + | Robson Min | ECON | Unknown | | + + + + + | Isabella Whitehead | ECON | Unknown | | + + + + + | Seven Neff | ECON | Unknown | | + + + + + Care Team Providers + +------+ + | Care Job Interviewer Name | Role | Phone | + +------+ + | Adele Avery | PCP | | + +------+ [...] + + | 04/18/ | Hospital | [facility] | Loi De Jesus, | NSTEMI (non-ST | | 2019 - | Encounter | [facility] | MD [address] | elevated myocardial | | | | CARE FLOOR [address] | [place] [address] | infarction) (HCC) | | 04/20/ | | [address] | [phone] | (Primary Dx); Chest | | 2019 | | [place], [place] | Stevo Hitchcock MD | pain, unspecified | | | | [address] | [address] | type; COPD, frequent | | | | [phone] | [place] [address] | exacerbations ([facility]) | | | | | [phone] | | | | | | | | | | | | Iva Buck DO | | | | | | [address] | | | | | | [place] [address] | | | | | | [phone] | | | | | | | [...] had a mildly elevated troponin in [place], t roponins at [facility] were undetectable. EKG was negative for acute [...] e vening aka: [facility] Supp[facility] Portable oxygen concentrator to provide O2 at [...] 1 patch onto | | 0 | / | | | (CATAPRES) 0.3 mg/24 | [...] 19 | | | units capsule | Wednesdays. | | | | | + + [...] + + + +---------+ + + | SITagliptin | Take 100 mg by mouth | | 0 | 04/05/20 | | | (JANUVIA) 100 mg | Daily. | | | 19 | | | tablet | | | | | | + + + +---------+ + + | sulfaSALAzine | Take 1,000 mg by | | 0 | 04/10/20 | | | (AZULFIDINE) 500 MG | mouth 2 times daily. | | | 19 | | | EC tablet | | | [...] | Daily. | | | 19 | 0 | + + + +---------+ [...] as needed. | | | 19 | 0 | + + + +---------+ + + | busPIRone (BUSPAR) | Take 10 mg by mouth | | 0 | | | | 10 MG tablet | every morning. | | | | 0 | + + + +---------+ + + | Continuous Blood | | | 0 | 11/02/19 | | | Gluc Sensor | | | | 19 | 0 | | (FREESTYLE HUAN 14 | | [...] the lungs Daily. | | | | 0 | | inhalation capsule | | | [...] | times daily. | | | | 0 | | [...] by Vivienne Daugherty RN at 6:27 PM Laine Kelly DO - 04/19/2019 2:25 PM PSTFormatting of this note migh t be different from the original. [facility] Service: Cardiology Progress Note Hospital Day: LOS: [...] should follow up with me in the nv rdiology office 4 weeks post discharge. Thank you for allowing me to participate in the care of this patient. Code Status: Prior Primary Care Physician: Adele Batista DO pIva pearson DO - 04/19/2019 7:22 AM PST [facility] Adult Hospitalist Progress Note Hospital Day: 1 [...] nausea, and some diaphore sis. Transferred to [facility] for reportedly positive troponin. Enzymes have been [...] troponin in [place], troponins here have been undete ctable. EKG [...] Kelly DO - 03/21 4:15 PM PST [facility] Service: Cardiology Initial Consult Note Name of Aligner: Laine Batista DO Reason for Consultation: Chest [...] she presented to the emergency department in [place]. Hannah harmon reportedly had a very mildly elevated troponin in the ER in [place] and was subsequently transferred to [facility]. Here, her troponin has been undetectable. EKG demon strates normal sinus rhythm with a left [...] bowel syndrome) Knee pain Lymphedema Myocardial infarction ([facility]) Nausea and vomiting Nocturia Obesity Panic anxiety syndrome Pneumonia Pyoderma gangreosum-LE RA (rheumatoid arthritis) ([facility]) Followed by Dr. Becerra Rheumologist in [place] Reflux esophagitis Restless leg syndrome Urinary [...] file Gets together: Not on file Attends buddhism service: Not on file Active member of [...] heart rate was 50BPM, the highest heart [id number], [id number]. During this recording inte rval, there were [...] Left elvia childs in sticky note also. rooke Ag [facility] - 04/18/2019 2:19 PM PSTRx Admission Medication [...] and Order Home Medications as necessary. Thanks Brooke Ag PharmD, [facility] documented in t his encounter Plan of Treatment +--------+---------+ + + + | Date | Type | Specialty | Care Team | Description | +--------+---------+ + + + | 09/27/ | Office | Pulmonology | GrandeNavdeep, | | | 2019 | Visit | | [address] | | | | | | [place] | | | | | | [address] | | | | | | | | +--------+---------+ + + + | 11/05/ | Office | Neurology | Tariq, | | | 2019 | Visit | | [address] | | | | | | [address] [facility], | | | | | | [place] [address] | | | | | | [phone] | | | | | | | [...] | | n - | | | | | | 2018 | | | : | | | AM PST | | [...] | | | FICATI | | | ON? | | | | | | 9 | | | 11:30? | | | LUZ, | | | | | | CARLINE | | | ?MRN: | | | [id number] | | | [id number] | | | riteri | | | [...] | | | d: | | | /29/1 | | | 9 9:38 | | [...] | | | ton:? | | | [id number] | | | -2536. | | | [...] | | | St. | | | [place] | | | y | | | [...] | | | St. | | | [place] | | | y H. | | [...] | | | St. | | | [place] | | | y H. | | [...] | | | status | | | [place] | | | 17, | | | 2019 | | | [facility] | | [facility] | | | [place] | | | y H. | | [...] | | | St. | | | [place] | | | y H. | | [...] | | | St. | | | [place] | | | y H. | | [...] | | | St. | | | [place] | | | y H. | | [...] | | | St. | | | [place] | | | y H. | | [...] | | | [id number] | | | [id number] | | | 93 | | | [...] 49 (L)Comment: GFR <60: | >60 | [facility] | | | GFR | CHRONIC KIDNEY [...] | | | | | | MDRD IDID traceable | | | | | | equation.Testing | | | | | | performed at [facility] | | | | | | [facility];[place], [place] | | | | | | [address] | | | | + + + + + + + + | Specimen | + + | Blood | + + + + + + + | Performing | Address | City/State/Zipcode | Phone Number | | Organization | | | | + + + + + | [facility] | [address] | [place] [address] | [phone] | + + + + + Phosphorus (04/20/2019 6:16 AM PST) + + + + + + | Component | Value | Ref Range | Performed | Pathologist | | | | | At | Signature | + + + + + + | Phosphorus | 4.9 (H)Comment: Testing | 2.3 - 4.8 mg/dL | [facility] | | | | performed at [facility];[address] | | LABORATORY | | | | [address];[place] | | | | | | [address] | | | | + + + + + + + + | Specimen | + + | Blood | + + + + + + + | Performing | Address | City/State/Zipcode | Phone Number | | Organization | | | | + + + + + | [facility] | [address] | [place] [address] | [phone] | + + + + + Magnesium (04/20/2019 6:16 AM PST) + + + + + + | Component | Value | Ref Range | Performed | Pathologist | | | | | At | Signature | + + + + + + | Magnesium | 1.8Comment: Testing | 1.7 - 2.4 mg/dL | [facility] | | | | performed at [facility];[address] | | LABORATORY | | | | [address];[place], [place] | | | | | | [address] | | | | + + + + + + + + | Specimen | + + | Blood | + + + + + + + | Performing | Address | City/State/Zipcode | Phone Number | | Organization | | | | + + + + + | [facility] | [address] | [place] [address] | [phone] | + + + + + CBC [...] [facility] | | | | performed at [facility];[address] | | LABORATORY | | | | [address];[place] | | | | | | [address] | | | | + + + + + + + + | Specimen | + + | Blood | + + + + + + + | Performing | Address | City/State/Zipcode | Phone Number | | Organization | | | | + + + + + | [facility] | [address] | [place] [address] | [phone] | + + + + + NM [...] <0.006Comment: 0.04 | 0.00 - 0.04 | [facility] | | | | ng/mL or less [...] at | | | | | | [facility];[address] [facility] | | | | | | [facility];[place] [address] | | | | + + + + + + + + | Specimen | + + | Blood | + + + + + + + | Performing | Address | City/State/Zipcode | Phone Number | | Organization | | | | + + + + + | [facility] | [address] | [place] [address] | [phone] | + + + + + Troponin I (04/18/2019 4:21 PM PST) + + + + + + | Component | Value | Ref Range | Performed | Pathologist | | | | | At | Signature | + + + + + + | Troponin I | 0.006Comment: 0.04 | 0.00 - 0.04 | [facility] | | | | ng/mL or less [...] at | | | | | | [facility];[address] [facility] | | | | | | Blvd;[place] [address] | | | | + + + + + + + + | Specimen | + + | Blood | + + + + + + + | Performing | Address | City/State/Zipcode | Phone Number | | Organization | | | | + + + + + | [facility] | [address] | [place] [address] | [phone] | + + + + + Urinalysis [...] - 1.030 | [facility] | | | [place], | | | LABORATORY | | | [...] + + + | Red Blood | 0-2 | 0 - 5 /hpf | [facility] | | | Cells, | | | LABORATORY | | | Urine | | | | | + + + + + + | Squamous | 26-49 | /lpf | [facility] | | | Epithelial | | | LABORATORY | | | Cells, | | | | | | Urine | | | | | + + + + + + | Bacteria, | 1+ (A)Comment: Testing | NONE | [facility] | | | Urine | performed at [facility];[address] | | LABORATORY | | | | [address];[place] | | | | | | [address] | | | | + + + + + + + + | Specimen | + + | Urine | + + + + + + + | Performing | Address | City/State/Zipcode | Phone Number | | Organization | | | | + + + + + | [facility] | [address] | [place] [address] | [phone] | + + + + + Drugs [...] | Phencyclidi | NEGATIVEComment: | NEG | [facility] | | | ne Screen, | Positive cutoff for PCP | | LABORATORY | | | Urine | = 25 ng/mL | | | | + + + + + + | Tetrahydroc | NEGATIVEComment: | NEG | [facility] | | | annabinol(T | Positive cutoff [...] | | | | performed at [facility];[address] | | | | | | [facility];[place], [place] | | | | | | [address] | | | | + + + + + + + + | Specimen | + + | Urine - Urine | | specimen (specimen) | + + + + + + + | Performing | Address | City/State/Zipcode | Phone Number | | Organization | | | | + + + + + | [facility] | [address] | [place] [address] | [phone] | + + + + + ECG [...] | | | deputy editor in chief Beth Quinn | | | | | [...] | | | Calculated | performed at [facility], [address] | | LABORATORY | | | | [address], | | | | | | [place] [address] | | | | + + + + + + + + | Specimen | + + | Blood | + + + + + + + | Performing | Address | City/State/Zipcode | Phone Number | | Organization | | | | + + + + + | [facility] | [address] | [place] [address] | [phone] | + + + + + Hemoglobin A1C (04/18/2019 11:54 AM PST) + + + + + + | Component | Value | Ref Range | Performed | Pathologist | | | | | At | Signature | + + + + + + | Hemoglobin | 5.9Comment: HbA1c method | 4.0 - 6.0 % | [facility] | | | A1c | is certified [...] | 123Comment: Estimated | <154 mg/dL | [facility] | | | Average | Average Glucose | | LABORATORY | | | Glucose | calculated from | | | | | | hemoglobin A1c by use of | | | | | | the ADArecommended | | | | | | formula.Testing | | | | | | performed at [facility], [address] | | | | | | [facility], | | | | | | [place] [address] | | | | + + + + + + + + | Specimen | + + | Blood | + + + + + + + | Performing | Address | City/State/Zipcode | Phone Number | | Organization | | | | + + + + + | [facility] | [address] | [place] [address] | [phone] | + + + + + Protime INR (04/18/2019 11:54 AM PST) + + + + + + | Component | Value | Ref Range | Performed | Pathologist | | | | | At | Signature | + + + + + + | INR | 1.0Comment: REFERENCE | | [facility] | | | | RANGE:0.9 - 1.2 [...] | | | | performed at [facility];[address] | | | | | | [address];[place] | | | | | | [address] | | | | + + + + + + + + | Specimen | + + | Blood | + + + + + + + | Performing | Address | City/State/Zipcode | Phone Number | | Organization | | | | + + + + + | [facility] | [address] | [place] [address] | [phone] | + + + + + Troponin I (04/18/2019 11:54 AM PST) + + + + + + | Component | Value | Ref Range | Performed | Pathologist | | | | | At | Signature | + + + + + + | Troponin I | 0.006Comment: 0.04 | 0.00 - 0.04 | [facility] | | | | ng/mL or less [...] at | | | | | | [facility];[address] [facility] | | | | | | Blvd;[place] [address] | | | | + + + + + + + + | Specimen | + + | Blood | + + + + + + + | Performing | Address | City/State/Zipcode | Phone Number | | Organization | | | | + + + + + | [facility] | [address] | [place] [address] | [phone] | + + + + + Comprehensive [...] 51 (L)Comment: GFR <60: | >60 | [facility] | | | GFR | CHRONIC KIDNEY [...] | | | | performed at [facility];[address] | | | | | | [facility];[place], [place] | | | | | | [address] | | | | + + + + + + + + | Specimen | + + | Blood | + + + + + + + | Performing | Address | City/State/Zipcode | Phone Number | | Organization | | | | + + + + + | [facility] | [address] | [place] [address] | [phone] | + + + + + CBC [...] at | | | | | | [facility];[address] [place] [address] | | | | | | [facility];[place] [address] | | | | + + + + + + + + | Specimen | + + | Blood | + + + + + + + | Performing | Address | City/State/Zipcode | Phone Number | | Organization | | | | + + + + + | [facility] | [address] | [place] [address] | [phone] | + + + + + documented [...] | | | | | modification) on Bridgette 04/20/19 at | | | | | | [...] | | | | Chest pain, Starting 04/18/19 | | | | | | | [...] | | | | | 04/18/19 at 1210, Titration | | | | [...] | | | | | dose on 04/18/19 at 2345 | | PM PST | [...] | | | | | Intravenous, ONCE, 04/19/19 at | | AM PST | | [...] | | | | | dose on 04/18/19 at 1430 | | AM PST | [...]
--- OUTSIDE RECORDS SUMMARY | ~2019-09-02 | XMS | Encounter Summary ---
Demographics + + + | Address | [address] | | | [place] [address] | + + + | Home Phone [...] | | | | | [place] [address] | | + + + + + | Robson Escobar | ECON | Unknown | | + + + + + | Isabella Whitehead | ECON | Unknown | | + + + + + | Seven Neff | ECON | Unknown | | + + + + + Care Team Providers + +------+ + | Care Visual Specialist Name | Role | Phone | + +------+ + | Juanito Avery | PCP | | + +------+ + Reason for Referral Evaluate & Treat (Routine) + + + + + + + | Status | Reason | Specialty | Diagnoses / | Referred By | Referred To | | | | | Procedures | Contact | Contact | + + + + + + + | Pending | Specialty | Home Health | Diagnoses | Gabriela, | | | Review | Services | Services | Chronic | Renee | | | | Required | | obstructive | MD Sury | | | | | | pulmonary | [address] | | | | | | disease, | [address] [place] [address] | | | | | | unspecified | [address] | | | | | | COPD type | TERESA COOK | | | | | | ([facility]) | [id number] | | | | | | | Phone: | | | | | | | [phone] | | | | | | | Fax: | | | | | | | [phone] | | + + + + + + + Reason for Visit Auth/Cert +--------+--------+ + + + + | Status | Reason | Specialty | Diagnoses / | Referred By | Referred To | | | | | Procedures | Contact | Contact | +--------+--------+ + + + + | | | | Diagnoses | | | | | | | RESPIRATORY | | | | | | | FAILURE | | | +--------+--------+ + + + + Encounter Details +--------+ + + + + | Date | Type | Department | Care Team | Description | +--------+ + + + + | 06/20/ | Hospital | [facility] | Clint Bourgeois | Polypharmacy | | 2019 - | Encounter | [facility] | MD Silas [address] | (Primary Dx); | | | | [facility] [address] | [address] | Delirium due to | | 06/22/ | | [address] [place], | [place] [address] | another medical | | 2019 | | [place] [address] | [phone] | condition; Bipolar I | | | | [phone] | | disorder (HCC); | | | | | Renee Ochoa | Anxiety; Bipolar II | | | | | MD [address] | disorder (HCC); | | | | | [address] [place] [address] | Chronic obstructive | | | | | [place] [address] | pulmonary disease, | | | | | [phone] | unspecified COPD | | | | | | type (HCC); | | | | | | Hypercarbic cerebral | | | | | | edema (HCC); | | | | | | Insomnia, | | | | | | unspecified type | +--------+ + + + + Social [...] + + + | Blood Pressure | 133/77 | 06/23/2019 1:09 PM | | | | | PST | | + + + + + | Pulse | 69 | 06/23/2019 1:09 PM | | | | | PST | | + + + + + | Temperature | 36.4 C (97.5 F) | 06/23/2019 1:09 PM | | | | | PST | | + + + + + | Respiratory Rate | 16 | 06/23/2019 1:09 PM | | | | | PST | | + + + + + | Oxygen Saturation | 93% | 06/23/2019 1:09 PM | | | | | PST | | + + + + + | Inhaled Oxygen | - | - | | | Concentration | | | | + + + + + | Weight | 103.2 kg (227 lb 8.2 | 06/23/2019 12:58 AM | | | | oz) | PST | | + + + + + | Height | - | - | | + + + + + | Body Mass Index | 37.86 | 06/20/2019 8:47 AM | | | | | PST [...] documented as of this encounter Discharge Summaries Devora Dominique RN - 06/23/2019 1:53 PM PSTPatient cleared for d/c. PIV removed, belonging s collected, and questions answered. Spoke with daughter who will be able to pick her up at 1500. Per daughter patient already has a home health [employer]ORDIN[employer] that helps her so they do not need any more home health needs. Electronically signed by: Devora Dominique RN 06/23/2019 1:56 PM Renee Morrissey MD - 06/23/2019 1:23 PM PST [facility] Patient: Carline Escobar Date of : 1970 PCP: Juanito Avery Admit Date: 06/21/2019 Discharge Date: 06/23/2019 Date of Service: 06/23/2019 Issues Requiring Follow Up after Discharge: Follow-up PCP next week to revisit medication/polypharmacy recommended stopping trazodone a nd benephan/ -Follow-up psychiatry primary care to evaluate polypharmacy -Continue short steroid taper for next to 3 days -Home health PT recommended time of discharge and prescribed patient had initially refused and accepted for medication management/balance improvement/cognitive behavioral management Follow Up Appointments: Juanito Avery [address] [place] [address] Go on 06/28/2019 Hospital follow up at 12:20 PM> Thank you. Jimbo Samayoa MD [address] , [place] [address] Go on 06/30/2019 Neurology at 8:15 AM. Navdeep Grande MD [address] [place] [address] Go on 07/27/2019 Pulmonology at 10:30AM. Discharge Disposition: Home with Home Health Consultants This Admission: ICU/ Psychiatry Hospital Course: 49 y.o.femalewith PMH including COPD, DM, hypothyroidism, RA, and GERD/ bipolar dx who was brought to [facility] ED on 06/20 after being discovered confused at home by an apparent home health caregiver after her recent medication for insomnia were restarted.. She was giv en 2 mg intranasal narcan with no effect and brought to ED by She was on 2L NC on arrival to ED and due to some agitation behavior was given 2 dosages of IV Ativan and after blood ga s demonstrated hypercarbia and hypoxia and was then placed on BiPAP. For her progressively w orsening respiratory failure patient was transferred to [facility] ICU. 06/20: Admit from [facility] ([place]), weaned of BiPAP 06/21 transferred to hospital service floor/psychiatric team for polypharmacy. Some of her d rugs were stopped and recommended to be restarted only after evaluation in outpatient settin g with PCP and psychiatric primary care . Upon transfer to the floor patient remained stable no need for BiPAP or oxygen with therapy suggesting baseline fuinctionality and recommneding discharge home with home health for co ntinuation of strength balance medication supervision and close cognitive behavioral educati on. She was discharged home with care of her family with prescription only for short steroid ta per and close follow-up with her primary care physician. Most of the culprit drugs resembli ng polypharmacy particularly directed to insomnia were stopped. Discharge Diagnoses: AcuteCombined Hypoxic/HypercapnicRespiratory Failure-resolved - Secondary tovery mild COPD exacerbation -Very short prednisone taper - resp viral panelnegative/chest x-ray negative not require oxygen -BiPAP temporarily in ICU only for polypharmacy/mild hypercarbic respiratory failure in con text of polypharmacy - - Acute Encephalopathy, toxic/metabolic improving likely polypharmacy/hypercarbia -needs f/u PCP to wean futher possible / stop Trazodone/ Benephan/ BUspar Hyponatremia-no prior records- jaswant baseline 131 Essential hypertension -Restarttorsemide, metoprolol, clonidine patch/ verapamil Diabetes Mellitus type II unknown control Hypothyroidism -Resume Home Synthroid/TSH normal Tobacco Dependence - nicotine patches PRN as needed GERD - ppi Chronic Pain Syndrome severe deformity of rheumatoid arthritis - On Butrans patch to continue - Restart Home Lyrica, Cymbalta - Restart home Lubiprostone Bipolar Depression - D/C Vortioxetine, Buspar Trazodone and other insomnia medication- needs to reassses t b y PCP/ Psychiatric primary care RA retsrat Sulfasalazine and Azathioprine Discharge Exam: Temp: [36.4 C (97.5 F)-37.2 C (98.9 F)] 36.4 C (97.5 F) Pulse: [65-89] 69 Resp: [16-30] 16 BP: (109-177)/(54-84) 133/77 SpO2: 93 % on room air Physical Exam Constitutional: Appearance: She is obese. She is not ill-appearing. Eyes: Pupils: Pupils are equal, round, and reactive to light. Cardiovascular: Rate and Rhythm: Normal rate and regular rhythm. Pulses: Normal pulses. Pulmonary: Effort: No respiratory distress. Breath sounds: Normal breath sounds. No stridor. No wheezing or rhonchi. Musculoskeletal: Right lower leg: No edema. Left lower leg: No edema. Comments: Multiple joints deformity/bilateral metacarpal much of tarsal phalangeal joint s Skin: General: Skin is warm. Findings: No bruising, erythema, lesion or rash. Neurological: General: No focal deficit present. Mental Status: She is alert and oriented to person, place, and time. Psychiatric: Mood and Affect: Mood normal. Comments: Variable she can be very pleasant and nice however say that she can turn throw ing up fits Discharge Medications: Discharge Medications New Medications Details predniSONE 20 mg tablet Take 1 tablet by mouth Daily for 3 doses. aka: DELTASONE Start: June 24, 2019 Changed Medications Details LANTUS SOLOSTAR 100 units/mL injection (pen) Generic drug: insulin glargine Inject 10 Units under the skin nightly. What changed: Another medication with the same name was removed. Continue taking this medi cation, and follow the directions you see here. Unchanged Medications Details albuterol 90 mcg/puff inhaler [...] and 100 mg night ly aka: IMURAN buprenorphine 20 mcg/hr patch Place 1 patch onto the skin Once a week. aka: BUTRANS cloNIDine 0.3 mg/[address] 1 patch onto the skin Once a week. aka: CATAPRES diclofenac 1% Gel aka: VOLTAREN DOK 100 mg capsule Generic drug: docusate sodium DULoxetine [address] capsule Take 30 mg by mouth Daily. aka: CYMBALTA ergocalciferol 1.25 mg (50,000 units) capsule Take 50,000 Units by mouth Once a week. aka: VITAMIN D2 FREESTYLE HUAN 14 DAY SENSOR Misc insulin lispro 100 units/mL injection (pen) Humalog KwikPen (U-100) Insulin 100 unit/mL subcutaneous Inject by SQ 6 units plus sliding scale ac, and hs. 0-150 0 units, 151-200 2 units, 201-2 50 4 units, 251-300 6 units, 301-350 8 units, 351-400 10 units, 400+ 15 units and notify doc tor. aka: humaLOG LICO JANUVIA 100 mg tablet Generic drug: SITagliptin Take 100 mg by mouth. levothyroxine 300 mcg tablet Take 300 mcg by mouth every morning (before breakfast). aka: SYNTHROID magnesium oxide 400 mg tablet Take 1 tablet by mouth Daily. aka: MAG-OX metFORMIN 500 mg tablet Take 500 mg by mouth 2 times daily (with breakfast & dinner). aka: GLUCOPHAGE metoprolol succinate 50 mg 24 hr tablet Take 1 tablet by mouth Daily. aka: TOPROL-XL omeprazole 20 mg capsule aka: priLOSEC ondansetron 4 mg tablet aka: ZOFRAN pregabalin 150 MG capsule Take 150-300 mg by mouth (see instruction). Take 150 mg in the morning and 300 mg in the e vening aka: IGORA Respiratory Therapy [place] [facility] [place] to provide O2 at 1 l/m continuous via nasal cannula. Duration : Lifetime Dx: COPD J44.9 sulfaSALAzine 500 MG EC tablet TAKE TWO TABLETS BY MOUTH TWICE A DAY aka: AZULFIDINE tiotropium 18 mcg inhalation capsule Inhale 18 mcg into the lungs Daily. aka: SPIRIVA torsemide 20 mg tablet Take 20 mg by mouth Daily. aka: DEMADEX verapamil 240 mg SR capsule aka: VERELAN ziprasidone 60 MG capsule Take 60 mg by mouth nightly. aka: TABBYDON Discontinued Medications BANOPHEN 25 MG capsule Generic drug: diphenhydrAMINE busPIRone 10 MG tablet aka: BUSPAR traZODone 100 mg tablet aka: DESYREL vortioxetine 10 mg tablet aka: TRINTELLIX Procedures Performed This Admission: I CT head 06/20 MPRESSION: Mild to moderate motion degraded examination. No acute intracranial abnormality. Chronic intracranial findings as described. Extracranial findings, as described. No CT evidence of intracranial mass lesion, acute intracranial hemorrhage or large territorial acute infarction. No hydrocephalus. Pertinent Lab and Imaging Results: Results for CARLINE ESCOBAR ( ) as of 06/23/2019 21:10 Ref. Range 06/23/2019 05:08 06/23/2019 06:33 06/23/2019 12:18 WBC Latest Ref Range: 3.80 - 11.00 K/uL 5.89 RBC COUNT Latest Ref Range: 3.70 - 5.10 M/uL 3.32 (L) Total Hemoglobin Latest Ref Range: 11.3 - 15.5 g/dL 10.1 (L) Hematocrit Latest Ref Range: 34.0 - 46.0 % 29.9 (L) MCV Latest Ref Range: 80.0 - 100.0 fL 90.1 MCH Latest Ref Range: 27.0 - 34.0 pg 30.4 MCHC Latest Ref Range: 32.0 - 35.5 g/dL 33.8 RDW-CV Latest Ref Range: 11.0 - 15.5 % 18.4 (H) Platelet Count Latest Ref Range: 150 - 400 K/uL 172 MPV Latest Ref Range: 9.3 - 12.7 fL 11.4 Absolute Neutrophils Latest Ref Range: 1.90 - 7.40 K/uL 2.92 Absolute Lymphocytes Latest Ref Range: 1.00 - 3.90 K/uL 1.99 Absolute Monocytes Latest Ref Range: 0.00 - 0.80 K/uL 0.91 (H) Absolute Eosinophils Latest Ref Range: 0.00 - 0.50 K/uL 0.04 Absolute Basophils Latest Ref Range: 0.00 - 0.10 K/uL 0.02 Absolute Immature Granulocytes Latest Ref Range: 0.00 - 0.03 K/uL 0.02 % Neutrophils Latest Ref Range: 40.0 - 75.0 % 49.5 % Lymphocytes Latest Ref Range: 15.0 - 48.0 % 33.8 % Monocytes Latest Ref Range: 0.0 - 12.0 % 15.4 (H) % Eosinophils Latest Ref Range: 0.0 - 7.0 % 0.7 % Basophils Latest Ref Range: 0.0 - 2.0 % 0.3 % Immature Granulocytes Latest Ref Range: 0.0 - 1.0 % 0.3 Na Latest Ref Range: 135 - 145 mmol/L 132 (L) K Latest Ref Range: 3.5 - 5.0 mmol/L 3.6 Chloride Latest Ref Range: 99 - 109 mmol/L 98 (L) Carbon dioxide Latest Ref Range: 21 - 28 mmol/L 27 Anion Gap Latest Ref Range: 5 - 16 mmol/L 7 Glucose Latest Ref Range: 65 - 99 mg/dL 172 (H) BUN Latest Ref Range: 8 - 25 mg/dL 21 Creatinine Latest Ref Range: 0.50 - 1.00 mg/dL 1.41 (H) Albumin Latest Ref Range: 3.5 - 5.0 g/dL 3.6 Total Protein Latest Ref Range: 6.1 - 8.4 g/dL 5.7 (L) Estimated GFR Latest Ref Range: >=90 mL/min/1.73m2 44 (L) Calcium Latest Ref Range: 8.5 - 10.2 mg/dL 8.9 Magnesium Latest Ref Range: 1.7 - 2.4 mg/dL 1.7 ALK PHOS Latest Ref Range: 35 - 115 U/L 91 ALT (SGPT) (REF) Latest Ref Range: 10 - 65 U/L 10 AST (SGOT) (REF) Latest Ref Range: 10 - 45 U/L 20 Bilirubin Total (Calculated) Latest Ref Range: 0.1 - 1.5 mg/dL 0.3 Glucose, POC Latest Ref Range: 65 - 99 mg/dL 193 (H) 266 (H) Results for CARLINE ESCOBAR ( ) as of 06/23/2019 21:10 Ref. Range 06/21/2019 20:12 06/21/2019 20:37 pH, Arterial, POC Latest Ref Range: 7.37 - 7.47 7.33 (L) PCO2, Arterial, POC Latest Ref Range: 32 - 43 mmHg 62 (AA) PO2, Arterial, POC Latest Ref Range: 65 - 80 mmHg 70 HCO3, Arterial, POC Latest Ref Range: 23.0 - 28.0 mmol/L 32.7 (H) Base Excess, Arterial, POC Latest Ref Range: -2.5 - 2.5 mmol/L 6.7 (H) Carboxyhemoglobin COOX, POC Latest Ref Range: 1.0 - 3.0 % 1.9 Oxygen Content, Arterial Latest Ref Range: 15.0 - 23.0 % 13.0 (L) O2SAT COOX ARTERIAL Latest Ref Range: 92.0 - 99.0 % 86.8 (L) Methemoglobin Latest Ref Range: 0.4 - 1.5 % 1.5 ROUTE Unknown 3LPM NC Calcium, Ionized Latest Ref Range: 1.19 - 1.33 mmol/L 1.38 (H) Lactate, Arterial Latest Ref Range: 0.5 - 1.6 mmol/L 0.5 Lactate, Venous Latest Ref Range: 0.5 - 2.2 mmol/L 0.7 Comment Unknown SAT95 ET50 R18 Condition at Discharge: good Time Spent on Discharge: less than 30 minutes Electronically signed by: Renee Ochoa MD 06/23/2019 1:23 PM Portions of this chart may have been created with [employer] voice recognition software. Occasi onal wrong-word or sound-alike substitutions may have occurred due to the inherent samayoa itations of voice recognition software. Please read the chart carefully and recognize, using context, where these substitutions have occurred documented in this encounter Medications at Time [...] + + +---------+ + + | aspirin 325 mg EC | Take 325 mg by mouth | | 0 | | | | tablet | Daily as needed for | | | | | | | Pain. | | | | | + + [...] | | | (IMURAN) 50 mg | nightly. Take 50 mg | | | | | | tablet | by mouth in the | | | | | | | morning and 100 mg | | | | | | | nightly. | | | | | [...] + + + +---------+ + + | diclofenac | Apply 2 g topically | | 0 | 05/24/19 | | | (VOLTAREN) 1% GEL | 3 times daily. feet | | | 20 | | + + + +---------+ + + | DOK 100 MG tablet | Take 100 mg by mouth | | 0 | 06/14/19 | | | | 2 times daily. | | | 20 | | + + + +---------+ + + | DULoxetine | Take 30 mg by mouth | | 0 | | | | (CYMBALTA) [address] | Daily. | | | | | | capsule [...] + + | insulin glargine | Inject 10 Units | | 0 | | | | (BASAGLAR KWIKPEN) | under the skin every | | | | | | 100 units/mL | morning. | | | | | | injection (pen) | | | | | | + + + +---------+ + + | levothyroxine | Take 300 mcg by | | 0 | 01/24/20 | | | (SYNTHROID) 300 mcg | mouth every morning | | | 19 | | | tablet | (before breakfast). | | | | | + + + +---------+ + + | lubiprostone | Take 24 mcg by mouth | | 0 | | | | (AMITIZA) 24 mcg | every morning. | | | | | | capsule [...] +---------+ + + | omeprazole | Take 20 mg by mouth | | 0 | 05/12/19 | | | (PRILOSEC) 20 mg | Daily. | | | 20 | | | capsule | | | [...] +---------+ + + | tiotropium | Inhale 2 puffs into | | 0 | | | | (SPIRIVA RESPIMAT) | the lungs Daily. | | | | | | 2.5 mcg/puff inhaler | | | | | | + + + +---------+ + + | torsemide | Take 20 mg by mouth | | 0 | 12/08/19 | | | (DEMADEX) 20 mg | Daily. | | | 18 | | | tablet | | | | | | + + + +---------+ + + | verapamil | Take 480 mg by mouth | | 0 | 06/13/19 | | | (VERELAN) 240 mg SR | nightly. | | | 20 | | | capsule | | | [...] +---------+ + + | ondansetron | Take 4-8 mg by mouth | | 0 | 05/09/19 | | | (ZOFRAN) 4 mg tablet | Twice daily as | | | 20 | 0 | | | needed for Nausea. | | | | | + + + +---------+ + + | predniSONE | Take 1 tablet by | 3 | 0 | 06/24/19 | | | (DELTASONE) 20 mg | mouth Daily for 3 | tablet | | 20 | 0 | | tablet | doses. | | | | | + + + +---------+ + + | pregabalin | Take 300 mg by mouth | | 0 | | | | (LYRICA) 150 MG | every evening. Take | | | | 0 | | capsule | 150 mg by mouth in | | | | | | | the morning and 300 | | | | | | | mg in the evening. | | | | | + + + +---------+ + + documented as of this encounter Progress Notes Hue Hull, Petroleum Engineering Teacher - 06/23/2019 3:20 PM PST PHARMACY SERVICES: ADMISSION MEDICATION HISTORY Carline Escobar is a 49 y.o. female admitted on 06/21/2019 7:35 PM. The primary encounter luli gnosis was Polypharmacy. Diagnoses of Delirium due to another medical condition, Bipolar I d isorder (HCC), Anxiety, Bipolar II disorder (HCC), Chronic obstructive pulmonary disease, un specified COPD type (HCC), Hypercarbic cerebral edema (HCC), and Insomnia, unspecified type were also pertinent to this visit. The best possible medication list was reviewed with patient's caregiver. Comments: Patient was not a reliable historian at time of pharmacy interview because her ca regiver manages her meds. Caregiver is able to verify most meds, however, he states patient manages some on her own. Unable to verify meds pt manages because she has been discharged. The patient's medication list was obtained from the following sources: interview with jeremy canada, Jaclyn Ramirez, [place], and [facility]. Pharmacy Confidence Level: Medium. Medication History Requested by Provider: yes Best Possible [employer]ABLE [employer] TE[employer] Medication List After Pharmacy Review Prior to Admission medications Medication Sig Pharmacy Findings albuterol (PROAIR HFA) 90 mcg/puff inhaler Inhale 2 puffs into the lungs every 4 hours as n eeded for Wheezing or Shortness of Breath. aspirin 325 mg EC tablet Take 325 mg by mouth Daily as needed for Pain. Changed from 81 mg daily. atorvaSTATin (LIPITOR) 20 mg tablet Take 20 mg by mouth nightly. azaTHIOprine (IMURAN) 50 mg tablet Take 100 mg by mouth nightly. Take 50 mg by mouth in the morning and 100 mg nightly. Changed from 50-100 mg, no frequency. azaTHIOprine (IMURAN) 50 mg tablet Take 50 tablets by mouth every morning. Take 50 mg by mo uth in the morning and 100 mg nightly. Changed from 50-100 mg, no frequency. buprenorphine (BUTRANS) 20 mcg/hr patch Place 1 patch onto the skin Once a week. Unable to verify which day of the week. buspirone 30 mg tablet Take 30 mg by mouth twice daily. Changed from 10 mg every AM cloNIDine (CATAPRES) 0.3 mg/[address] 1 patch onto the skin Once a week. Unable to verify which day of the week. diclofenac (VOLTAREN) 1% GEL Apply 2 g topically 3 times daily. Feet Changed from no dose/f requency. Diphenhydramine 25 mg tablet Take 50 mg by mouth 4 times daily as needed for allergies/slee p. Changed from 25 mg HS PRN. DOK 100 MG tablet Take 100 mg by mouth 2 times daily. Changed from no dose/frequency. DULoxetine (CYMBALTA) [address] capsule Take 30 mg by mouth Daily. ergocalciferol (VITAMIN D-2) 50,000 units capsule Take 50,000 Units by mouth Once a week. W . insulin glargine (BASAGLAR KWIKPEN) 100 units/mL injection (pen) Inject 10 Units under the skin every morning. levothyroxine (SYNTHROID) 300 mcg tablet Take 300 mcg by mouth every morning (before breakf ast). lubiprostone (AMITIZA) 24 mcg capsule Take 24 mcg by mouth every morning. Last filled 30 da y supply 04/20/19. Caregiver states pt was taking PRN constipation, however, asked caregiver to start putting in every morning in pill box. magnesium oxide (MAG-OX) 400 mg tablet Take 1 tablet by mouth Daily. metFORMIN (GLUCOPHAGE) 500 mg tablet Take 500 mg by mouth 2 times daily (with breakfast & d inner). Prescribed as 1,000 mg BID. metoprolol succinate (TOPROL-XL) 50 mg 24 hr tablet Take 1 tablet by mouth Daily. omeprazole (PRILOSEC) 20 mg capsule Take 20 mg by mouth Daily. Changed from no dose/frequen cy. ondansetron (ZOFRAN) 4 mg tablet Take 4-8 mg by mouth Twice daily as needed for Nausea. Ch anged from no dose/frequency. pregabalin (LYRICA) 150 MG capsule Take 300 mg by mouth every evening. Take 150 mg by mouth in the morning and 300 mg in the evening. Changed from 150-300 mg, no frequency. pregabalin (LYRICA) 150 MG capsule Take 150 mg by mouth every morning. Take 150 mg by mouth in the morning and 300 mg in the evening. Changed from 150-300 mg, no frequency. SITagliptin (JANUVIA) 100 mg tablet Take 100 mg by mouth Daily. Changed from no frequency. sulfaSALAzine (AZULFIDINE) 500 MG EC tablet Take 1,000 mg by mouth 2 times daily. tiotropium (SPIRIVA RESPIMAT) 2.5 mcg/puff inhaler Inhale 2 puffs into the lungs Daily. Adrianne nged from tiotropium 18 mcg daily. Last filled 04/17/19. torsemide (DEMADEX) 20 mg tablet Take 20 mg by mouth Daily. Trazodone 100 mg tablet Take 200-300 mg by mouth nightly. Changed from 300 mg. verapamil (VERELAN) 240 mg SR capsule Take 480 mg by mouth nightly. Changed from no dose/fr equency. vortioxetene (Trintellix) 20 mg tablet Take 20 mg by mouth daily. ziprasidone (GEODON) 80 MG capsule Take 80 mg by mouth nightly. Changed from 60 mg. Removed therapy: Blood glucose sensor (error) Insulin glargine (duplicate) Insulin lispro (no fill history, not taking) Respiratory therapy supplies (error) Allergies Adhesive & tape; Azithromycin; and Lamotrigine Reviewed by Pharmacy? Unable to review Medication history performed and electronically signed by HUE HULL, Pharmacy [facility] 06/23/2019 3:20 PM Associated attestation - Yana Iyer PharmD - 06/23/2019 5:24 PM PSTReviewed CABLE [employer] TE[employer] med list changes and agree with discrepancies noted. Electronically signed by: Yana Iyer PharmD 06/23/2019 5:22 PM Renee Ochoa MD - 06/22/2019 3:07 PM PSTFormatting of this note might be differ ent from the original. Patient: Carline Escobar Date of : 1970 Admit Date: 06/21/2019 Date of Service: 06/22/2019 PCP: Juanito Avery [facility] Day: Hospital Day: 2 Hospital Course: 49 y.o.femalewith PMH including COPD, DM, hypothyroidism, RA, and GERD/ bipolar dx who was brought to [facility] ED on 06/20 after being discovered confused at home by an apparent home health caregiver after her recent medication for insomnia were restarted.. She was giv en 2 mg intranasal narcan to no effect and brought to ED by She was on 2L NC on arrival to ED and due to some agitation behavior was given 2 dosages of IV Ativan and after blood gas demonstrated hypercarbia and hypoxia and was then placed on BiPAP. For her progressively wor sening respiratory failure patient was transferred to [facility] ICU. 3/4: Admit from [facility] ([place]), weaned of BiPAP 3/5 transferred to hospital service floor/psychiatric team for polypharmacy Assessment and Plan: Assessment of active problems addressed today: AcuteCombined Hypoxic/HypercapnicRespiratory Failure-resolved - Secondary tovery mild COPD exacerbation - Change Solumedrol to Prednisone 40 mg daily, total 5 days - resp viral panel negative - Target goal [id number]% given history of COPD/will do BiPAP PRN - CXRnegative - - Continue to hold on antibiotics, patient has improved without therapy, no evidence of a ctive infection Acute Encephalopathy, toxic/metabolic improving likely polypharmacy/hypercarbia - Improving, Due torespiratory failure and home polypharmacy - Promote appropriate fluid status to mitigate sodium derangement - Nutrition and hydration as routes allow -Replacing electrolytes magnesium IV today/ monitor Na -We will involve pharmacy for medication reconciliation -Psychiatry consult for helping with management of psychiatric drugs Essential hypertension - Restart torsemide, metoprolol, clonidine patch Diabetes Mellitus type II unknown control -Sliding scale insulinresume Januvia and home Lantus - Holding home Metformine Hypothyroidism - Resume Home Synthroid/recheck TSH Tobacco Dependence - nicotine patches PRN as needed GERD - ppi Chronic Pain Syndrome severe deformity of rheumatoid arthritis - On Butrans patch @ home, non-formulary - Substitute Oxycodone 5-10 mg po q3h prn, will escalate w/Dilaudid IV prn if pain remains uncontrolled - Restart Home Lyrica, Cymbalta - Restart home Lubiprostone Bipolar Depression - Holding home Vortioxetine, Buspar - Hold home Trazodone -Psychiatric input appreciated will resume Geodon 60 mg nightly we will hold on trazodone a nd any s sleep adjuvants particularly Ativan which caused her to went into hypercarbic respi ratory failure RA - Holding Sulfasalazine and Azathioprine but with intention to resume in a.m. Anticipate DC in next 24 to 48 hours upon medication reconciliation/PT assessment/psychiatr ic assessment/ Subjective: CC: I am doing fine I have pain but I am not crazy. I am here where the coronavirus patien ts are. I think everything is caused by my trazodone new prescription ROS -10 point view of system except chronic pain seems to be at baseline no nausea no vomiting no diarrhea no chest pain or palpitation Objective: Vital Signs 06/19 699 - 06/20 0659 06/20 07 - 06/21 0659 06/21 699 - 06/21 1507 Most Rec ent Temp (C) 36.7 - 37 36.3 - 36.4 36.3 (97.4) Pulse 66 - 78 72 - 90 80 Resp 12 - 23 17 - 32 25 BP 131/67 - 177/102 121/65 - 177/85 177/81 SpO2 (%) 89 - 96 92 - 100 97 Flow (L/min) 2 - 7 1 - 2 1 Weight (kg) 104.9 104.9 kg (231 lb 4.2 oz) I/O last 3 completed shifts: In: - Out: 2550 [Urine:2550] Wt Readings from Last 3 Encounters: 06/21/19 104.9 kg (231 lb 4.2 oz) 06/20/19 103.9 kg (229 lb) 04/20/19 98.8 kg (217 lb 13 oz) Active Lines PIV Line Peripheral IV Line - Single Lumen 06/21/192112 Right Mid Forearm [id number] catheter system 20 gauge;1 1/4 in length less than 1 day Active Tubes/Drains None PHYSICAL EXAM: Physical Exam Constitutional: Appearance: Normal appearance. She is obese. HENT: Head: Normocephalic. Mouth/Throat: Mouth: Mucous membranes are moist. Eyes: Conjunctiva/sclera: Conjunctivae normal. Pupils: Pupils are equal, round, and reactive to light. Cardiovascular: Rate and Rhythm: Normal rate and regular rhythm. Pulmonary: Effort: Pulmonary effort is normal. No respiratory distress. Breath sounds: No stridor. No wheezing or rhonchi. Abdominal: General: Abdomen is flat. Bowel sounds are normal. There is no distension. Palpations: There is no mass. Tenderness: There is no abdominal tenderness. Hernia: No hernia is present. Musculoskeletal: General: Deformity present. Right lower leg: No edema. Left lower leg: No edema. Comments: Multiple bilateral metacarpophalangeal joint deformities as well lower metatar sophalangeal deformities due to severe RA able to ambulate independently at baseline Skin: General: Skin is warm. Findings: No erythema or rash. Neurological: General: No focal deficit present. Mental Status: She is alert. Comments: Slurred speech seems to be at baseline/extrapyramidal like lip's movemens seem s to be oriented to time and place Psychiatric: Comments: She cant carry conversation but suddenly become decompensated and can be mean/ using foul language/notes and prior ER noted she was aggressive towards staff 24 HOUR LABS: Recent Results (from the past 24 hour(s)) MRSA NAAT Result Value Ref Range MRSA DNA Negative Negative Specimen Source Nasal Blood Gas, Arterial Result Value Ref Range pH, Arterial 7.33 (L) 7.37 - 7.47 pCO2, Arterial 62 (AA) 32 - 43 mmHg pO2, Arterial 70 65 - 80 mmHg Base Excess, Arterial 6.7 (H) -2.5 - 2.5 mmol/L HCO3, Arterial 32.7 (H) 23.0 - 28.0 mmol/L ROUTE 3LPM NC Methemoglobin 1.5 0.4 - 1.5 % Comment SAT95 ET50 R18 Oxygen Content, Arterial 13.0 (L) 15.0 - 23.0 % Hct 32.5 (L) 34.0 - 46.0 % Carboxyhemoglobin 1.9 1.0 - 3.0 % Hemoglobin 10.6 (L) 11.3 - 15.5 g/dL O2SAT COOX ARTERIAL 86.8 (L) 92.0 - 99.0 % Chemistry Profile, Respiratory 3 Result Value Ref Range Cl 96 (L) 101 - 111 mmol/L Glucose 97 65 - 99 mg/dL K 4.5 3.5 - 5.0 mmol/L Na 131 (L) 135 - 145 mmol/L Calcium, Ionized, Respiratory Result Value Ref Range Calcium, Ionized 1.38 (H) 1.19 - 1.33 mmol/L Calcium, pH Normalized 1.33 1.19 - 1.33 mmol/L Lactic Acid, Arterial, Respiratory Result Value Ref Range Lactate, Arterial 0.5 0.5 - 1.6 mmol/L Respiratory pathogen panel, NAAT Result Value Ref Range Adenovirus DNA Not Detected Not Detected Coronavirus 229E Not Detected Not Detected Coronavirus HKU1 Not Detected Not Detected Coronavirus NL63 Not Detected Not Detected Coronavirus OC43 Not Detected Not Detected Human metapneumovirus RNA Not Detected Not Detected Rhinovirus/Enterovirus Not Detected Not Detected Influenza A RNA Not Detected Not Detected Influenza B RNA Not Detected Not Detected Parainfluenza Virus 1 RNA Not Detected Not Detected Parainfluenza Virus 2 RNA Not Detected Not Detected Parainfluenza Virus 3 RNA Not Detected Not Detected Parainfluenza Virus 4 RNA Not Detected Not Detected RSV Not Detected Not Detected B. parapertussis DNA Not Detected Not Detected Bordetella pertussis DNA Not Detected Not Detected Chlamydophila pneumoniae DNA Not Detected Not Detected Mycoplasma pneumoniae DNA Not Detected Not Detected Comprehensive Metabolic Panel Result Value Ref Range Na 134 (L) 135 - 145 mmol/L K 4.6 3.5 - 5.0 mmol/L Cl 100 99 - 109 mmol/L CO2 31 (H) 21 - 28 mmol/L Calcium 10.5 (H) 8.5 - 10.2 mg/dL Anion Gap 3 (L) 5 - 16 mmol/L Albumin 3.7 3.5 - 5.0 g/dL BUN 16 8 - 25 mg/dL Creatinine 1.00 0.50 - 1.00 mg/dL Glucose 92 65 - 99 mg/dL Total Protein 5.9 (L) 6.1 - 8.4 g/dL Alkaline Phosphatase 98 35 - 115 U/L ALT 10 10 - 65 U/L AST 20 10 - 45 U/L Bilirubin Total 0.3 0.1 - 1.5 mg/dL Estimated GFR 67 (L) >=90 mL/min/1.73m2 Magnesium Result Value Ref Range Magnesium 1.5 (L) 1.7 - 2.4 mg/dL Phosphorus Result Value Ref Range Phosphorus 4.4 2.3 - 4.8 mg/dL Protime INR Result Value Ref Range Prothrombin Time 12.7 12.0 - 14.2 sec INR 1.0 0.9 - 1.1 CBC with Manual Differential Result Value Ref Range WBC 5.18 3.80 - 11.00 K/uL RBC 3.55 (L) 3.70 - 5.10 M/uL Hemoglobin 10.9 (L) 11.3 - 15.5 g/dL Hct 33.1 (L) 34.0 - 46.0 % MCV 93.2 80.0 - 100.0 fL MCH 30.7 27.0 - 34.0 pg MCHC 32.9 32.0 - 35.5 g/dL RDW-CV 17.0 (H) 11.0 - 15.5 % Platelet Count 160 150 - 400 K/uL MPV 10.9 9.3 - 12.7 fL % Segmented Neutrophils 51.0 38.0 - 70.0 % % Bands 3.0 0.0 - 8.0 % % Lymphocytes 27.0 15.0 - 48.0 % % Monocytes 15.0 (H) 0.0 - 12.0 % % Eosinophils 1.0 0.0 - 7.0 % % Basophils 0.0 0.0 - 2.0 % % Variant Lymphocytes 3.0 0.0 - 6.0 % Absolute Segmented Neutrophils 2.64 1.80 - 7.70 K/uL Absolute Bands 0.16 0.00 - 0.24 K/uL Absolute Lymphocytes 1.40 1.00 - 3.90 K/uL Absolute Eosinophils 0.05 0.00 - 0.50 K/uL Absolute Basophils 0.00 0.00 - 0.10 K/uL Absolute Monocytes 0.78 0.00 - 0.80 K/uL Absolute Lymphocytes Variant 0.16 K/uL Platelet Estimate Adequate Ovalocytes 1+ Anisocytosis 1+ Lactic Acid Result Value Ref Range Lactate, Venous 0.7 0.5 - 2.2 mmol/L Hemoglobin A1C Result Value Ref Range Hemoglobin A1c 6.0 4.3 - 6.1 % Estimated Average Glucose 126 65 - 154 mg/dL Ethanol Result Value Ref Range ALCOHOL, SERUM/PLASMA 7 0 - 9 mg/dL POC Glucose Result Value Ref Range Glucose, POC 98 65 - 99 mg/dL Drugs of Abuse, Screen, Urine Result Value Ref Range Tricyclics, UR Negative Negative Amphetamine Screen, Urine Negative Negative Barbiturate Screen Urine Negative Negative Benzodiazepines Screen, Urine Positive (A) Negative Cocaine Screen, Urine Negative Negative Opiate Screen, Urine Negative Negative Oxycodone, UR Negative Negative Cannabinoids Screen, Urine Negative Negative Buprenorphine Screen, Urine Negative Negative Phencyclidine, Screen, Urine Negative Negative Porpoxyphene Screen, Urine Negative Negative Methamphetamine Quant, Ur Negative Negative Methadone Screen, Urine Negative Negative U Tox Comment See Comment Basic Metabolic Panel Result Value Ref Range Na 134 (L) 135 - 145 mmol/L K 4.8 3.5 - 5.0 mmol/L Cl 100 99 - 109 mmol/L CO2 31 (H) 21 - 28 mmol/L Anion Gap 3 (L) 5 - 16 mmol/L Calcium 10.5 (H) 8.5 - 10.2 mg/dL BUN 14 8 - 25 mg/dL Creatinine 1.01 (H) 0.50 - 1.00 mg/dL Glucose 143 (H) 65 - 99 mg/dL Estimated GFR 66 (L) >=90 mL/min/1.73m2 CBC no Differential Result Value Ref Range WBC 6.16 3.80 - 11.00 K/uL RBC 3.77 3.70 - 5.10 M/uL Hemoglobin 11.4 11.3 - 15.5 g/dL Hct 35.8 34.0 - 46.0 % MCV 95.0 80.0 - 100.0 fL MCH 30.2 27.0 - 34.0 pg MCHC 31.8 (L) 32.0 - 35.5 g/dL RDW-CV 16.9 (H) 11.0 - 15.5 % Platelet Count 162 150 - 400 K/uL MPV 10.8 9.3 - 12.7 fL POC Glucose Result Value Ref Range Glucose, POC 139 (H) 65 - 99 mg/dL POC Glucose Result Value Ref Range Glucose, POC 256 (H) 65 - 99 mg/dL Glucose, POC Date/Time Value Ref Range Status 06/22/2019 11:33 AM 256 (H) 65 - 99 mg/dL Final Comment: Performed by [facility] [address] [facility] [place] [address] 06/22/2019 07:40 AM 139 (H) 65 - 99 mg/dL Final Comment: Performed by [facility] [address] [facility] [place] [address] 06/21/2019 08:48 PM 98 65 - 99 mg/dL Final Comment: Performed by [facility] [address] [facility] [place] [address] 08/19/2018 11:51 AM 180 (H) 70 - 110 mg/dL Final 08/19/2018 07:36 AM 150 (H) 70 - 110 mg/dL Final 08/18/2018 08:20 PM 111 (H) 70 - 110 mg/dL Final All pertinent labs and imaging have been reviewed. Please refer to the Assessment and Plan for details on management. I spent 45 minutes with the patient and on the patient's unit, with over 50% spent in cou nseling and/or coordination of care. Please refer to the Assessment and Plan for details. Electronically signed by: Renee Ochoa MD 06/22/2019 3:07 PM Portions of this chart may have been created with Dragon voice recognition software. Occasi onal wrong-word or sound-alike substitutions may have occurred due to the inherent samayoa itations of voice recognition software. Please read the chart carefully and recognize, using context, where these substitutions have occurred OAnderson, Juan Rosen MD - 06/22/2019 12:41 PM PSTFormatting of this note might be different from the o riginal. Critical Care Progress Note [facility] Date of Service: 06/22/2019 Admit Date: 06/21/2019 Pt. Name: Carline Escobar Age: 49 y.o. : 1970 Code Status: Full Code by default - TBD Hospital Day: 2 ICU Admit Date: 06/21/19 Reason for Critical Care: Acute on Chronic Respiratory Failure, Polypharmacy Provider Teams: Primary: CCM Background/Hospital Course: 49 y.o. female with PMH including COPD, DM, hypothyroidism, RA, and GERD who was brought to [facility] ED on 06/20 after being discovered confused at home by an apparent home health ca regiver. She was given intranasal narcan to no effect and brought to ED by EMS. She was give n 2L crystalloid (uncertain indication). After a few hours in ED she was given a dose of ati van as well. She was on 2L NC on arrival to ED and after blood gas demonstrated hypercarbia and hypoxia and was then placed on BiPAP. For her progressively worsening respiratory failur e patient was transferred to [facility] ICU. Summary of Significant Events: 06/20: Admit from [facility] ([facility]), weaned of BiPAP Assessment & Plan Today's Plan: - Transfer to floor - Restart some home BP medications: Metoprolol, Clonidine - Restart home pain meds: Lyrica, Lubiprostone, Duloxetine - Convert Solumedrol to Prednisone 40 mg po daily x 5 days - Hold Butrans patch, use short-acting oxycodone to avoid oversedation Problem List: Acute Combined Hypoxic/Hypercapnic Respiratory Failure - Secondary to COPD exacerbation - Change Solumedrol to Prednisone 40 mg daily, total 5 days - resp viral panel negative - Target goal SaO2 88-92% given history of COPD - CXR essentially unremarkable for acute process - Duonebs and symbicort Scheduled - Continue to hold on antibiotics, patient has improved without therapy, no evidence of act corrina infection Acute Encephalopathy, toxic/metabolic - Improving, Due to respiratory failure and home polypharmacy - Promote appropriate fluid status to mitigate sodium derangement - Nutrition and hydration as routes allow - Promote day/night cycles - Minimize restraints Chronic HTN - target 90-140 - Restart torsemide, metoprolol, clonidine patch Diabetes Mellitus - Sliding scale insulin - Holding home Metformin, Januvia, Lantus Hypothyroidism - Home Synthroid Tobacco Dependence - nicotine patches - cessation counseling when more alert GERD - ppi Chronic Pain Syndrome - On Butrans patch @ home, non-formulary - Substitute Oxycodone 5-10 mg po q3h prn, will escalate w/Dilaudid IV prn if pain remains uncontrolled - Restart Home Lyrica, Cymbalta - Restart home Lubiprostone Bipolar Depression - Holding home Vortioxetine, Ziprasidone, Buspar - Hold home Trazodone RA - Holding Sulfasalazine and Azathioprine VTE Proph: scd, sq hep GI Proph: ppi Nutrition: General T/L/D: piv Palliative Care/Family Last Family Update: - Last Care Conference: - Subjective 24hr interval history: Weaned off BiPAP, c/o increased neuropathic pain in LE's and abdominal bloating ROS: Review of Systems Constitutional: Negative for chills and fever. HENT: Negative for sore throat. Respiratory: Negative for shortness of breath, wheezing and stridor. Cardiovascular: Negative for chest pain and palpitations. Gastrointestinal: Positive for abdominal pain and constipation. Negative for nausea and vom iting. Genitourinary: Negative for dysuria and urgency. Musculoskeletal: Positive for joint pain. Negative for back pain, myalgias and neck pain. Skin: Negative for itching and rash. Neurological: Negative for sensory change, speech change and focal weakness. Psychiatric/Behavioral: Positive for depression. Negative for suicidal ideas. The patient i s nervous/anxious. Objective Vitals Current Average / Min / Max Temp 36.3 C (97.4 F) Temp Min: 36.3 C (97.4 F) Max: 37 C (98.6 F) BP 163/78 BP Min: 131/67 Max: 177/85 HR 84 Pulse Av.6 Min: 66 Max: 84 RR 27 Resp Av Min: 12 Max: 31 Sats 93 % SpO2 Min: 89 % Max: 96 % Weight 104.9 kg (231 lb 4.2 oz) BMI: Body mass index is 38.48 kg/m. OXYGEN REQUIREMENT: SpO2: 93 % on 1L/min room air EXAM: General: Awake, alert, oriented x3 Opth: PERRL, EOMI Resp: Lungs CTAB, no crackles/wheezes/rhonchi Cardiac: RRR, no gallops/rubs/murmurs GI: Soft, mildly distended, diffusely tender, normal bowel tones. Passing flatus. MSK: Normal muscle bulk. Significant MTP joint degeneration in bilateral feet. Skin: No rash noted Neurologic: fluent speech, [place], stands up with two person assist LABORATORY: I personally reviewed recent labs in [facility] and ordered appropriate follow-up joey dies. Recent Labs Lab 06/22/1933406/21/19203606/21/192011 WBC 6.16 5.18 -- HGB 11.4 10.9* 10.6* HCT 35.8 33.1* 32.5* PLT 162 160 -- Recent Labs Lab 06/22/1933406/21/19203606/21/192011 NA 134* 134* 131* K 4.8 4.6 4.5 CL 100 100 96* CO2 31* 31* -- BUN 14 16 -- CREA 1.01* 1.00 -- CALCIUM 10.5* 10.5* -- ALT -- 10 -- AST -- 20 -- ALKPHOS -- 98 -- BILITOT -- 0.3 -- ALBUMIN -- 3.7 -- Recent Labs Lab 06/21/19203606/21/192011 LACTATE 0.7 0.5 Recent Labs Lab 06/21/192036 INR 1.0 No results for input(s): TROPONIN, BNP in the last 168 hours. Invalid input(s): CKTOTAL Lab Results Component Value Date PHART 7.33 (L) 06/21/2019 ULX3MBB 62 (AA) 06/21/2019 PO2ART 70 06/21/2019 [id number] 98 09/22/2018 OBF4VHR 32.7 (H) 06/21/2019 BEART 6.7 (H) 06/21/2019 CARBOXYHGB 1.9 06/21/2019 LMINOFOXYGEN 1.0 09/22/2018 IMAGING: I personally reviewed the following radiology reports as well as imaging today: No new imaging today Level 3 follow up SIGNED BY: Clint Bourgeois MD, 06/22/2019, 12:41 PM Portions of this chart may have been created with [employer] voice recognition software. Occasi onal wrong-word or sound-alike substitutions may have occurred due to the inherent samayoa itations of voice recognition software. Please read the chart carefully and recognize, using context, where these substitutions have occurred. documented in this encounter Plan of Treatment [...] | | +--------+---------+ + + + | 07/20/ | Office | Neurology | Tariq, | | | 2019 | Visit | | [address] | | | | | | [address] [facility] [place], | | | | | | [place] [address] | | | | | | [phone] | | | | | | | | +--------+---------+ + + + + + +--------+ + + | Name | Type | Priori | Associated Diagnoses | Order Schedule | | | | ty | | | + + +--------+ + + | Referral to Home | Outpatient | Routin | Chronic | Ordered: 06/23/2019 | | Health - OUTPATIENT | Referral | e | obstructive | | | | | | [...] + | POC GLUCOSE | Routin | 06/23/2019 | | Results for this | | | e | 12:18 PM | | procedure are in the | | | | PST | | results section. | + +--------+ + + + | POC GLUCOSE | Routin | 06/23/2019 | | Results for this | | | e | 6:33 AM | | procedure are in the | | | | PST | | results section. | + +--------+ + + + | CBC WITH | Routin | 06/23/2019 | | Results for this | | DIFFERENTIAL | e | 5:08 AM | | procedure are in the | | | | PST | | results section. | + +--------+ + + + | MAGNESIUM | Routin | 06/23/2019 | | Results for this | | | e | 5:08 AM | | procedure are in the | | | | PST | | results section. | + +--------+ + + + | COMPREHENSIVE | Routin | 06/23/2019 | | Results for this | | METABOLIC PANEL | e | 5:08 AM | | procedure are in the | | | | PST | | results section. | + +--------+ + + + | POC GLUCOSE | Routin | 06/22/2019 | | Results for this | | | e | 8:59 PM | | procedure are in the | | | | PST | | results section. | + +--------+ + + + | POC GLUCOSE | Routin | 06/22/2019 | | Results for this | | | e | 4:06 PM | | procedure are in the | | | | PST | | results section. | + +--------+ + + + | POC GLUCOSE | Routin | 06/22/2019 | | Results for this | | | e | 11:33 AM | | procedure are in the | | | | PST | | results section. | + +--------+ + + + | POC GLUCOSE | Routin | 06/22/2019 | | Results for this | | | e | 7:40 AM | | procedure are in the | | | | PST | | results section. | + +--------+ + + + | CBC NO DIFFERENTIAL | Routin | 06/22/2019 | | Results for this | | | e | 3:35 AM | | procedure are in the | | | | PST | | results section. | + +--------+ + + + | BASIC METABOLIC | Routin | 06/22/2019 | | Results for this | | PANEL | e | 3:35 AM | | procedure are in the | | | | PST | | results section. | + +--------+ + + + | DRUGS OF ABUSE, | Routin | 06/21/2019 | | Results for this | | SCREEN, URINE | e | 10:53 PM | | procedure are in the | | | | PST | | results section. | + +--------+ + + + | CT HEAD WO CONTRAST | STAT | 06/21/2019 | | Results for this | | | | 10:17 PM | | procedure are in the | | | | PST | | results section. | + +--------+ + + + | ECG 12 LEAD | STAT | 06/21/2019 | | Results for this | | | | 9:13 PM | | procedure are in the | | | | PST | | results section. | + +--------+ + + + | POC GLUCOSE | Routin | 06/21/2019 | | Results for this | | | e | 8:48 PM | | procedure are in the | | | | PST | | results section. | + +--------+ + + + | XR CHEST AP PORTABLE | STAT | 06/21/2019 | | Results for this | | | | 8:44 PM | | procedure are in the | | | | PST | | results section. | + +--------+ + + + | HC COMPLETE CBC | STAT | 06/21/2019 | | Results for this | | AUTOMATED | | 8:37 PM | | procedure are in the | | | | PST | | results section. | + +--------+ + + + | PROTIME INR | LARS | 06/21/2019 | | Results for this | | | | 8:37 PM | | procedure are in the | | | | PST | | results section. | + +--------+ + + + | PHOSPHORUS | LARS | 06/21/2019 | | Results for this | | | | 8:37 PM | | procedure are in the | | | | PST | | results section. | + +--------+ + + + | MAGNESIUM | LARS | 06/21/2019 | | Results for this | | | | 8:37 PM | | procedure are in the | | | | PST | | results section. | + +--------+ + + + | LACTIC ACID | STAT | 06/21/2019 | | Results for this | | | | 8:37 PM | | procedure are in the | | | | PST | | results section. | + +--------+ + + + | HEMOGLOBIN A1C | Add-On | 06/21/2019 | | Results for this | | | | 8:37 PM | | procedure are in the | | | | PST | | results section. | + +--------+ + + + | ALCOHOL | LARS | 06/21/2019 | | Results for this | | | | 8:37 PM | | procedure are in the | | | | PST | | results section. | + +--------+ + + + | COMPREHENSIVE | LARS | 06/21/2019 | | Results for this | | METABOLIC PANEL | | 8:37 PM | | procedure are in the | | | | PST | | results section. | + +--------+ + + + | RESPIRATORY VIRUS | Routin | 06/21/2019 | | Results for this | | ANTIGENS PROFILE | e | 8:16 PM | | procedure are in the | | | | PST | | results section. | + +--------+ + + + | LACTIC ACID, | LARS | 06/21/2019 | | Results for this | | ARTERIAL, | | 8:12 PM | | procedure are in the | | RESPIRATORY | | PST | | results section. | + +--------+ + + + | CHEMISTRY PROFILE, | LARS | 06/21/2019 | | Results for this | | RESPIRATORY 3 | | 8:12 PM | | procedure are in the | | | | PST | | results section. | + +--------+ + + + | CALCIUM, IONIZED, | LARS | 06/21/2019 | | Results for this | | RESPIRATORY | | 8:12 PM | | procedure are in the | | | | PST | | results section. | + +--------+ + + + | BLOOD GAS, ARTERIAL | LARS | 06/21/2019 | | Results for this | | | | 8:12 PM | | procedure are in the | | | | PST | | results section. | + +--------+ + + + | MRSA NAAT | Routin | 06/21/2019 | | Results for this | | | e | 7:49 PM | | procedure are in the | | | | PST | | results section. | + +--------+ + + + | ARRHYTHMIA MONITOR - | | 06/21/2019 | | Results for this | | EXTERNAL SCAN | | 12:00 AM | | procedure are in the | | | | PST | | results section. | + +--------+ + + + | ECG - EXTERNAL SCAN | | 06/21/2019 | | Results for this | | | | 12:00 AM | | procedure are in the | | | | PST | | results section. | + +--------+ + + + documented in this encounter Results POC Glucose (06/23/2019 12:18 PM PST) + + + + + + | Component | Value | Ref Range | Performed | Pathologist | | | | | At | Signature | + + + + + + | Glucose, | 266 (H)Comment: | 65 - 99 mg/dL | [facility] | | | POC | Performed by [facility] [address] | [address] [place] | | HEART | | | | [phone] | | MEDICAL | | | | | | CENTER | | | | | | LABORATORY | | | | | | [facility] | | + + + + + + + + | Specimen | + + | Blood specimen | | (specimen) | + + + + + + + | Performing | Address | City/State/Zipcode | Phone Number | | Organization | | | | + + + + + | [facility] | [address] | [place] [address] | | | [facility] | | | | | [facility] | | | | + + + + + POC Glucose (06/23/2019 6:33 AM PST) + + + + + + | Component | Value | Ref Range | Performed | Pathologist | | | | | At | Signature | + + + + + + | Glucose, | 193 (H)Comment: | 65 - 99 mg/dL | [facility] | | | POC | Performed by [facility] [address] | [address] | | | | [address], [place] | | HEART | | | | [phone] | | MEDICAL | | | | | | CENTER | | | | | | LABORATORY | | | | | | [place] | | + + + + + + + + | Specimen | + + | Blood specimen | | (specimen) | + + + + + + + | Performing | Address | City/State/Zipcode | Phone Number | | Organization | | | | + + + + + | [facility] | [address] | [place] [address] | | | [facility] | | | | | [facility]AT[facility] | | | | + + + + + Comprehensive Metabolic Panel (06/23/2019 5:08 AM PST) + + + + + + | Component | Value | Ref Range | Performed | Pathologist | | | | | At | Signature | + + + + + + | Na | 132 (L) | 135 - 145 | [facility] | | | | | mmol/L | [facility] | | | | | | HEART | | | | | | MEDICAL | | | | | | CENTER | | | | | | LABORATORY | | | | | | [facility] | | + + + + + + | K | 3.6 | 3.5 - 5.0 | [facility] | | | | | mmol/L | [facility] | [facility] | [facility] | | | | | | MEDICAL | | | | | | CENTER | | | | | | LABORATORY | | | | | | [facility] | | + + + + + + | Cl | 98 (L) | 99 - 109 mmol/L | [facility] | | | | | | [facility] | | | | | | MEDICAL | | | | | | CENTER | | | | | | LABORATORY | | | | | | [facility] | | + + + + + + | CO2 | 27 | 21 - 28 mmol/L | [facility] | | | | | | [facility] | | | | | | MEDICAL | | | | | | CENTER | | | | | | LABORATORY | | | | | | [facility] | | + + + + + + | Calcium | 8.9 | 8.5 - 10.2 | [facility] | | | | | mg/dL | [facility] | | | | | | [facility] | | | | | | MEDICAL | | | | | | CENTER | | | | | | LABORATORY | | | | | | [facility] | | + + + + + + | Anion Gap | 7 | 5 - 16 mmol/L | [facility] | | | | | [facility] | [facility] | | | | | | MEDICAL | | | | | | CENTER | | | | | | LABORATORY | | | | | | [facility] | | + + + + + + | Albumin | 3.6 | 3.5 - 5.0 g/dL | [facility] | | | | | | [facility] | [facility] | | | | | | MEDICAL | | | | | | CENTER | | | | | | LABORATORY | | | | | | [facility] | | + + + + + + | BUN | 21 | 8 - 25 mg/dL | [facility] | | [facility] | [facility] | | | | | | MEDICAL | | | | | | CENTER | | | | | | LABORATORY | | | | | | [facility] | | + + + + + + | Creatinine | 1.41 (H) | 0.50 - 1.00 | [facility] | | | | | mg/dL | [facility] | | | | | [facility] | | | | | | MEDICAL | | | | | | CENTER | | | | | | LABORATORY | | | | | | [facility] | | + + + + + + | Glucose | 172 (H) | 65 - 99 mg/dL | [facility] | | | | | [facility] | [facility] | [facility] | | | | | | MEDICAL | | | | | | CENTER | | | | | | LABORATORY | | | | | | [facility] | | + + + + + + | Total | 5.7 (L) | 6.1 - 8.4 g/dL | [facility] | | | Protein | | | [facility] | | | | | | [facility] | | | | | | MEDICAL | | | | | | CENTER | | | | | | LABORATORY | | | | | | [facility] | | + + + + + + | Alkaline | 91 | 35 - 115 U/L | [facility] | | | Phosphatase | | | [facility] | | | | | | [facility] | | | | | | MEDICAL | | | | | | CENTER | | | | | | LABORATORY | | | | | | [facility] | | + + + + + + | ALT | 10 | 10 - 65 U/L | [facility] | | | | | | [facility] | | | | | [facility] | | | | | | MEDICAL | | | | | | CENTER | | | | | | LABORATORY | | | | | | [facility] | | + + + + + + | AST | 20 | 10 - 45 U/L | [facility] | | | | | | [facility] | | | | | [facility] | | | | | | MEDICAL | | | | | | CENTER | | | | | | LABORATORY | | | | | | [facility] | | + + + + + + | Bilirubin | 0.3 | 0.1 - 1.5 mg/dL | [facility] | | | Total | | | [facility] | | | | | | HE[facility] | | | | | | MEDICAL | | | | | | CENTER | | | | | | LABORATORY | | | | | | [facility] | | + + + + + + | Estimated | 44 (L)Comment: eGFR<60 | >=90 | [facility] | | | GFR | consistent with impaired | mL/min/1.73m2 | [facility] | | | | kidney function.For | | HEART | | | | Americans, | | MEDICAL | | | | multiply the calculated | | CENTER | | | | GFR by 1.210Performed by | | LABORATORY | | | | [facility] [address], | | [place] | | | | [place] [address] | | | | + + + + + + + + | Specimen | + + | Blood specimen | | (specimen) | + + + + + + + | Performing | Address | City/State/Zipcode | Phone Number | | Organization | | | | + + + + + | [facility] | [address] | [place] [address] | | | [facility] | | | | | LABORATORY [place] | | | | + + + + + CBC with Differential (06/23/2019 5:08 AM PST) + + + +------- ------+ + | Component | Value | Ref Range | Perfor med | Pathologist | | | | | At | Signature | + + + +------- ------+ + | WBC | 5.89 | 3.80 - 11.00 | [facility] | | | | | K/uL | [facility] | | | | | | HEART | | | | | | MEDICA L | | | | | | CENTER | | | | | | LABORA TORY | | | | | | [facility] | | + + + +------- ------+ + | RBC | 3.32 (L) | 3.70 - 5.10 | [facility] | | | | | M/uL | [facility] | | | | | | HEART | | | | | | MEDICA L | | | | | | CENTER | | | | | | LABORA TORY | | | | | | [facility] | | + + + +------- ------+ + | Hemoglobin | 10.1 (L) | 11.3 - 15.5 | [facility] | | | | | g/dL | [facility] | | | | | | HEART | | | | | | MEDICA L | | | | | | CENTER | | | | | | LABORA TORY | | | | | | [facility] | | + + + +------- ------+ + | Hct | 29.9 (L) | 34.0 - 46.0 % | [facility] | | | | | | [facility] | | | | | | HEART | | | | | | MEDICA L | | | | | | CENTER | | | | | | LABORA TORY | | | | | | [facility] | | + + + +------- ------+ + | MCV | 90.1 | 80.0 - 100.0 fL | [facility] | | | | | | [facility] | | | | | | HEART | | | | | | MEDICA L | | | | | | CENTER | | | | | | LABORA TORY | | | | | | [facility] | | + + + +------- ------+ + | MCH | 30.4 | 27.0 - 34.0 pg | [facility] | | | | | | [facility] | | | | | | HEART | | | | | | MEDICA L | | | | | | CENTER | | | | | | LABORA TORY | | | | | | [facility] | | + + + +------- ------+ + | MCHC | 33.8 | 32.0 - 35.5 | [facility] | | | | | g/dL | [facility] | | | | | | HEART | | | | | | MEDICA L | | | | | | CENTER | | | | | | LABORA TORY | | | | | | [facility] | | + + + +------- ------+ + | RDW-CV | 18.4 (H) | 11.0 - 15.5 % | [facility] | | | | | | [facility] | | | | | | HEART | | | | | | MEDICA L | | | | | | CENTER | | | | | | LABORA TORY | | | | | | [facility] | | + + + +------- ------+ + | Platelet | 172 | 150 - 400 K/uL | [facility] | | | Count | | | [facility] | | | | | | HEART | | | | | | MEDICA L | | | | | | CENTER | | | | | | LABORA TORY | | | | | | [facility] | | + + + +------- ------+ + | MPV | 11.4 | 9.3 - 12.7 fL | [facility] | | | | | | [facility] | | | | | | HEART | | | | | | MEDICA L | | | | | | CENTER | | | | | | LABORA TORY | | | | | | [facility] | | + + + +------- ------+ + | % | 49.5 | 40.0 - 75.0 % | [facility] | | | Neutrophils | | | [facility] | | | | | | HEART | | | | | | MEDICA L | | | | | | CENTER | | | | | | LABORA TORY | | | | | | [facility] | | + + + +------- ------+ + | % | 33.8 | 15.0 - 48.0 % | [facility] | | | Lymphocytes | | | [facility] | | | | | | HEART | | | | | | MEDICA L | | | | | | CENTER | | | | | | LABORA TORY | | | | | | [facility] | | + + + +------- ------+ + | % Monocytes | 15.4 (H) | 0.0 - 12.0 % | [facility] | | | | | | [facility] | | | | | | HEART | | | | | | MEDICA L | | | | | | CENTER | | | | | | LABORA TORY | | | | | | C[facility] | | + + + +------- ------+ + | % | 0.7 | 0.0 - 7.0 % | [facility] | | | Eosinophils | | | [facility] | | | | | | HEART | | | | | | MEDICA L | | | | | | CENTER | | | | | | LABORA TORY | | | | | | [facility] | | + + + +------- ------+ + | % Basophils | 0.3 | 0.0 - 2.0 % | [facility] | | | | | | [facility] | | | | | | HEART | | | | | | MEDICA L | | | | | | CENTER | | | | | | LABORA TORY | | | | | | [facility] | | + + + +------- ------+ + | % Immature | 0.3Comment: Immature | 0.0 - 1.0 % | [facility] | | | Granulocyte | granulocytes are | | [facility] | | | s | left-shifted | | HEART | | | | granulocytes and do not | | MEDICA L | | | | equal blasts. They are | | CENTER | | | | composed of | | LABORA TORY | | | | metamyelocytes, | | [facility] | | | | myelocytes, and | | | | | | promyelocytes. Their | | | | | | presence can be seen in | | | | | | infection, inflammation, | | | | | | certain medication's | | | | | | effect, or other bone | | | | | | marrow stimuli. | | | | | | Occasionally, | | | | | | persistent increase in | | | | | | immature granulocytes | | | | | | may be part of myeloid | | | | | | neoplastic process. | | | | | | Correlation with | | | | | | clinical findings is | | | | | | recommended for complete | | | | | | interpretation of this | | | | | | parameter. Please also | | | | | | note that peripheral | | | | | | blood with immature | | | | | | granulocytes >5% will be | | | | | | manually reviewed by | | | | | | lab personnel and/or | | | | | | pathologists. | | | | + + + +------- ------+ + | Absolute | 2.92 | 1.90 - 7.40 | [facility] | | | Neutrophils | | K/uL | [facility] | | | | | | HEART | | | | | | MEDICA L | | | | | | CENTER | | | | | | LABORA TORY | | | | | | C[facility] | | + + + +------- ------+ + | Absolute | 1.99 | 1.00 - 3.90 | [facility] | | | Lymphocytes | | K/uL | [facility] | | | | | | HEART | | | | | | MEDICA L | | | | | | CENTER | | | | | | LABORA TORY | | | | | | [facility] | | + + + +------- ------+ + | Absolute | 0.91 (H) | 0.00 - 0.80 | [facility] | | | Monocytes | | K/uL | [facility] | | | | | | HEART | | | | | | MEDICA L | | | | | | CENTER | | | | | | LABORA TORY | | | | | | C[facility] | | + + + +------- ------+ + | Absolute | 0.04 | 0.00 - 0.50 | [facility] | | | Eosinophils | | K/uL | [facility] | | | | | | HEART | | | | | | MEDICA L | | | | | | CENTER | | | | | | LABORA TORY | | | | | | [facility] | | + + + +------- ------+ + | Absolute | 0.02 | 0.00 - 0.10 | [facility] | | | Basophils | | K/uL | [facility] | | | | | | HEART | | | | | | MEDICA L | | | | | | CENTER | | | | | | LABORA TORY | | | | | | C[facility] | | + + + +------- ------+ + | Absolute | 0.02Comment: Performed | 0.00 - 0.03 | [facility] | | | Immature | by [facility] [address], | K/uL | SACRED | | | Granulocyte | [place] [address] | | HEART | | | s |Performed by [facility] [address], [place] [address] | | MEDICA L | | | | | | CENTER | | | | | | LABORA TORY | | | | | | CERNER | | + + + +------- ------+ + + + | Specimen | + + | Blood specimen | | (specimen) | + + + + + + + | Performing | Address | City/State/Zipcode | Phone Number | | Organization | | | | + + + + + | [facility] | [address] | [place] [address] | | | [facility] | | | | | LABORATORY [facility] | | | | + + + + + Magnesium (06/23/2019 5:08 AM PST) + + + +--------- ----+ + | Component | Value | Ref Range | Performe d | Pathologist | | | | | At | Signature | + + + +--------- ----+ + | Magnesium | 1.7Comment: Performed | 1.7 - 2.4 mg/dL | [facility] | | | | by [facility] [address], | | SACRED | | | | [place], [place] | | HEART | | | |Performed by [facility] [address], [place], [place] | | MEDICAL | | | | | | CENTER | | | | | | LABORATO RY | | | | | | CERNER | | + + + +--------- ----+ + + + | Specimen | + + | Blood specimen | | (specimen) | + + + + + + + | Performing | Address | City/State/Zipcode | Phone Number | | Organization | | | | + + + + + | [facility] | [address] | [place], [place] | | | [facility] | | | | | LABORATORY [place] | | | | + + + + + POC Glucose (06/22/2019 8:59 PM PST) + + + + + + | Component | Value | Ref Range | Performed | Pathologist | | | | | At | Signature | + + + + + + | Glucose, | 200 (H)Comment: | 65 - 99 mg/dL | [facility] | | | POC | Performed by [facility] [address] | | SACRED | | | | [address] [place] | | HEART | | | | [address] | | MEDICAL | | | | | | CENTER | | | | | | LABORATORY | | | | | | [place] | | + + + + + + + + | Specimen | + + | Blood specimen | | (specimen) | + + + + + + + | Performing | Address | City/State/Zipcode | Phone Number | | Organization | | | | + + + + + | [facility] | [address] | [place] [address] | | | [facility] | | | | | LABORATORY [place] | | | | + + + + + POC Glucose (06/22/2019 4:06 PM PST) + + + + + + | Component | Value | Ref Range | Performed | Pathologist | | | | | At | Signature | + + + + + + | Glucose, | 205 (H)Comment: | 65 - 99 mg/dL | [facility] | | | POC | Performed by [facility] [address] | | SACRED | | | | [address], [place] | | HEART | | | | [address] | | MEDICAL | | | | | | CENTER | | | | | | LABORATORY | | | | | | [place] | | + + + + + + + + | Specimen | + + | Blood specimen | | (specimen) | + + + + + + + | Performing | Address | City/State/Zipcode | Phone Number | | Organization | | | | + + + + + | [facility] | [address] | [place] [address] | | | [facility] | | | | | LABORATORY [place] | | | | + + + + + POC Glucose (06/22/2019 11:33 AM PST) + + + + + + | Component | Value | Ref Range | Performed | Pathologist | | | | | At | Signature | + + + + + + | Glucose, | 256 (H)Comment: | 65 - 99 mg/dL | [facility] | | | POC | Performed by [facility] [address] | | SACRED | | | | [address] [place] | | HEART | | | | [address] | | MEDICAL | | | | | | CENTER | | | | | | LABORATORY | | | | | | [place] | | + + + + + + + + | Specimen | + + | Blood specimen | | (specimen) | + + + + + + + | Performing | Address | City/State/Zipcode | Phone Number | | Organization | | | | + + + + + | [facility] | [address] | [place] [address] | | | [facility] | | | | | LABORATORY [place] | | | | + + + + + POC Glucose (06/22/2019 7:40 AM PST) + + + + + + | Component | Value | Ref Range | Performed | Pathologist | | | | | At | Signature | + + + + + + | Glucose, | 139 (H)Comment: | 65 - 99 mg/dL | [facility] | | | POC | Performed by [facility] [address] | | SACRED | | | | [address], [place] | | HEART | | | | [address] | | MEDICAL | | | | | | CENTER | | | | | | LABORATORY | | | | | | [place] | | + + + + + + + + | Specimen | + + | Blood specimen | | (specimen) | + + + + + + + | Performing | Address | City/State/Zipcode | Phone Number | | Organization | | | | + + + + + | [facility] | [address] | [place] [address] | | | [facility] | | | | | LABORATORY [place] | | | | + + + + + CBC no Differential (06/22/2019 3:35 AM PST) + + + +-------- -----+ + | Component | Value | Ref Range | Perform ed | Pathologist | | | | | At | Signature | + + + +-------- -----+ + | WBC | 6.16 | 3.80 - 11.00 | [facility] | | | | | K/uL | [facility] | | | | | | HEART | | | | | | MEDICAL | | | | | | CENTER | | | | | | [place] | | | | | | [facility] | | + + + +-------- -----+ + | RBC | 3.77 | 3.70 - 5.10 | [facility] | | | | | M/uL | [facility] | | | | | | HEART | | | | | | MEDICAL | | | | | | CENTER | | | | | | LABORAT ORY | | | | | | [facility] | | + + + +-------- -----+ + | Hemoglobin | 11.4 | 11.3 - 15.5 | [facility] | | | | | g/dL | [facility] | | | | | | HEART | | | | | | MEDICAL | | | | | | CENTER | | | | | | LABORAT ORY | | | | | | [facility] | | + + + +-------- -----+ + | Hct | 35.8 | 34.0 - 46.0 % | [facility] | | | | | | [facility]CR[facility] | | | | | | HEART | | | | | | MEDICAL | | | | | | CENTER | | | | | | LABORAT ORY | | | | | | [place] | | + + + +-------- -----+ + | MCV | 95.0 | 80.0 - 100.0 fL | [facility] | | | | | | [facility]CR[facility] | | | | | | HEART | | | | | | MEDICAL | | | | | | CENTER | | | | | | LABORAT ORY | | | | | | [place] | | + + + +-------- -----+ + | MCH | 30.2 | 27.0 - 34.0 pg | [facility] | | | | | | [facility]CR[facility] | | | | | | HEART | | | | | | MEDICAL | | | | | | CENTER | | | | | | LABORAT ORY | | | | | | [place] | | + + + +-------- -----+ + | MCHC | 31.8 (L) | 32.0 - 35.5 | [facility] | | | | | g/dL | [facility] | | | | | | HEART | | | | | | MEDICAL | | | | | | CENTER | | | | | | LABORAT ORY | | | | | | [facility] | | + + + +-------- -----+ + | RDW-CV | 16.9 (H) | 11.0 - 15.5 % | [facility] | | | | | | [facility] | | | | | | HEART | | | | | | MEDICAL | | | | | | CENTER | | | | | | LABORAT ORY | | | | | | [place] | | + + + +-------- -----+ + | Platelet | 162 | 150 - 400 K/uL | [facility] | | | Count | | | [facility]CR[facility] | | | | | | HEART | | | | | | MEDICAL | | | | | | CENTER | | | | | | LABORAT ORY | | | | | | [facility] | | + + + +-------- -----+ + | MPV | 10.8Comment: Performed | 9.3 - 12.7 fL | [facility] | | | | by [facility] [address], | | SACRED | | | | [place], [place] | | HEART | | | |Performed by [facility] [address], [place], [place] | | MEDICAL | | | | | | CENTER | | | | | | LABORAT ORY | | | | | | CERNER | | + + + +-------- -----+ + + + | Specimen | + + | Blood specimen | | (specimen) | + + + + + + + | Performing | Address | City/State/Zipcode | Phone Number | | Organization | | | | + + + + + | [facility] | [address] | [place], [place] | | | [facility] | | | | | LABORATORY [place] | | | | + + + + + Basic Metabolic Panel (06/22/2019 3:35 AM PST) + + + + + + | Component | Value | Ref Range | Performed | Pathologist | | | | | At | Signature | + + + + + + | Na | 134 (L) | 135 - 145 | [facility] | | | | | mmol/L | [facility]CRED | | | | | | HEART | | | | | | MEDICAL | | | | | | CENTER | | | | | | LABORATORY | | | | | | [facility] | | + + + + + + | K | 4.8 | 3.5 - 5.0 | [facility] | | | | | mmol/L | [facility]CRED | | | | | | HEART | | | | | | MEDICAL | | | | | | CENTER | | | | | | LABORATORY | | | | | | [facility] | | + + + + + + | Cl | 100 | 99 - 109 mmol/L | [facility] | | | | | | [facility]CR[facility] | | | | | | HEART | | | | | | MEDICAL | | | | | | CENTER | | | | | | LABORATORY | | | | | | [facility] | | + + + + + + | CO2 | 31 (H) | 21 - 28 mmol/L | [facility] | | | | | | [facility] | | | | | | HEART | | | | | | MEDICAL | | | | | | CENTER | | | | | | LABORATORY | | | | | | [facility] | | + + + + + + | Anion Gap | 3 (L) | 5 - 16 mmol/L | [facility] | | | | | | [facility]CR[facility] | | | | | | HEART | | | | | | MEDICAL | | | | | | CENTER | | | | | | LABORATORY | | | | | | [place] | | + + + + + + | Calcium | 10.5 (H) | 8.5 - 10.2 | [facility] | | | | | mg/dL | SACRED | | | | | | HEART | | | | | | MEDICAL | | | | | | CENTER | | | | | | LABORATORY | | | | | | [place] | | + + + + + + | BUN | 14 | 8 - 25 mg/dL | [facility] | | | | | | [facility]CR[facility] | | | | | | HEART | | | | | | MEDICAL | | | | | | CENTER | | | | | | LABORATORY | | | | | | [facility] | | + + + + + + | Creatinine | 1.01 (H) | 0.50 - 1.00 | [facility] | | | | | mg/dL | SACRED | | | | | | HEART | | | | | | MEDICAL | | | | | | CENTER | | | | | | LABORATORY | | | | | | [facility] | | + + + + + + | Glucose | 143 (H) | 65 - 99 mg/dL | [facility] | | | | | | SACRED | | | | | | HEART | | | | | | MEDICAL | | | | | | CENTER | | | | | | LABORATORY | | | | | | [place] | | + + + + + + | Estimated | 66 (L)Comment: eGFR<60 | >=90 | [facility] | | | GFR | consistent with impaired | mL/min/1.73m2 | SACRED | | | | kidney function.For | | HEART | | | | Americans, | | MEDICAL | | | | multiply the calculated | | CENTER | | | | GFR by 1.210Performed by | | LABORATORY | | | | [facility] [address], | | [place] | | | | [place] [address] | | | | + + + + + + + + | Specimen | + + | Blood specimen | | (specimen) | + + + + + + + | Performing | Address | City/State/Zipcode | Phone Number | | Organization | | | | + + + + + | [facility] | [address] | [place] [address] | | | [facility] | | | | | LABORATORY [place] | | | | + + + + + Drugs of Abuse, Screen, Urine (06/21/2019 10:53 PM PST) + + + + + + | Component | Value | Ref Range | Performed | Pathologist | | | | | At | Signature | + + + + + + | Tricyclics, | Negative | Negative | [facility] | | | UR | | | SACRED | | | | | | HEART | | | | | | MEDICAL | | | | | | CENTER | | | | | | LABORATORY | | | | | | [place] | | + + + + + + | Amphetamine | Negative | Negative | [facility] | | | Screen, | | | SACRED | | | Urine | | | HEART | | | | | | MEDICAL | | | | | | CENTER | | | | | | LABORATORY | | | | | | [facility] | | + + + + + + | Barbiturate | Negative | Negative | [facility] | | | Screen | | | SACRED | | | Urine | | | HEART | | | | | | MEDICAL | | | | | | CENTER | | | | | | LABORATORY | | | | | | [place] | | + + + + + + | Benzodiazep | Positive (A) | Negative | [facility] | | | claudio | | | SACRED | | | Screen, | | | HEART | | | Urine | | | MEDICAL | | | | | | CENTER | | | | | | LABORATORY | | | | | | [place] | | + + + + + + | Cocaine | Negative | Negative | [facility] | | | Screen, | | | SACRED | | | Urine | | | HEART | | | | | | MEDICAL | | | | | | CENTER | | | | | | LABORATORY | | | | | | [facility] | | + + + + + + | Opiate | Negative | Negative | [facility] | | | Screen, | | | SACRED | | | Urine | | | HEART | | | | | | MEDICAL | | | | | | CENTER | | | | | | LABORATORY | | | | | | [facility] | | + + + + + + | Oxycodone, | Negative | Negative | [facility] | | | UR | | | SACRED | | | | | | HEART | | | | | | MEDICAL | | | | | | CENTER | | | | | | LABORATORY | | | | | | [facility] | | + + + + + + | Cannabinoid | Negative | Negative | [facility] | | | s Screen, | | | SACRED | | | Urine | | | HEART | | | | | | MEDICAL | | | | | | CENTER | | | | | | LABORATORY | | | | | | [facility] | | + + + + + + | Buprenorphi | Negative | Negative | [facility] | | | ne Screen, | | | SACRED | | | Urine | | | HEART | | | | | | MEDICAL | | | | | | CENTER | | | | | | LABORATORY | | | | | | [facility] | | + + + + + + | Phencyclidi | Negative | Negative | [facility] | | | ne, Screen, | | | SACRED | | | Urine | | | HEART | | | | | | MEDICAL | | | | | | CENTER | | | | | | LABORATORY | | | | | | [facility] | | + + + + + + | Porpoxyphen | Negative | Negative | [facility] | | | e Screen, | | | SACRED | | | Urine | | | HEART | | | | | | MEDICAL | | | | | | CENTER | | | | | | LABORATORY | | | | | | [facility] | | + + + + + + | Methampheta | Negative | Negative | [facility] | | | mine Quant, | | | [facility] | | | Ur | | | HEART | | | | | | MEDICAL | | | | | | CENTER | | | | | | LABORATORY | | | | | | [facility] | | + + + + + + | Methadone | Negative | Negative | [facility] | | | Screen, | | | [facility] | | | Urine | | | HEART | | | | | | MEDICAL | | | | | | CENTER | | | | | | LABORATORY | | | | | | [facility] | | + + + + + + | U Tox | See CommentComment: | | [facility] | | | Comment | This entire battery is | | [facility] | | | | for screening purposes | | HEART | | | | only. Results are not | | MEDICAL | | | | confirmed.Results from | | CENTER | | | | any unconfirmed drug in | | LABORATORY | | | | this screening battery | | [facility] | | | | should not be used for | | | | | | legal purposes. Please | | | | | | note: Some medications | | | | | | cause positive results | | | | | | with any or all tested | | | | | | drugs in this | | | | | | battery.Performed by [facility] | | | | | | [address], | | | | | | [place] [address] | | | | + + + + + + + + | Specimen | + + | Urine specimen | | (specimen) - Urine | | specimen obtained by | | clean catch | | procedure (specimen) | + + + + + + + | Performing | Address | City/State/Zipcode | Phone Number | | Organization | | | | + + + + + | [facility] | [address] | [place] [address] | | | [facility] | | | | | [place] | | | | + + + + + CT Head wo Contrast (06/21/2019 10:17 PM PST) + + | Specimen | + + | | + + + + + | Impressions | Performed At | + + + | Mild to moderate motion degraded examination. No acute | [facility] | | intracranial abnormality. Chronic intracranial findings as described. | | | Extracranial findings, as described. No CT evidence of intracranial | | | mass lesion, acute intracranial hemorrhage or large territorial acute | | | infarction. No hydrocephalus. Signed by: Ngoc Mitchell, | | | George Sign Date/Time: 06/21/2019 10:38 PM | | + + + + + + | Narrative | Performed At | + + + | CT HEAD WITHOUT CONTRAST CLINICAL INFORMATION: Altered | [facility] | | mental status. COMPARISON: CT head 08/08/2017. PROCEDURE: | | | Axial images were obtained through the brain without IV contrast. | | | Coronal and sagittal reformations. At least one of the following | | | CT dose optimization techniques were used: Automated exposure | | | control, adjustment of mA and/or kV according to patient size, use of | | | iterative reconstruction technique. FINDINGS: Mild to moderate | | | motion degraded examination. No acute intracranial hemorrhage or | | | surface collection is seen. No midline shift. Brain parenchymal | | | appearances are within normal limits for age, with no abnormal areas | | | of parenchymal hypodensity or hyperdensity. Ventricles, cisterns and | | | sulci are otherwise normal. Mild intracranial atherosclerotic | | | calcification in the cavernous and supraclinoid segments of both | | | internal carotid arteries. No other abnormal hyperdensity of the | | | major intracranial arterial and venous structures. 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 Mild nasal septal | | | deviation to the left. Split atlas, a normal variant. 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 Metopic suture, a | | | normal variant. The orbits, visualized paranasal sinuses, mastoid | | | air cells, visualized skull base structures, calvarium and scalp soft | | | tissues are otherwise normal. | | + + + + + | Procedure Note | + + | Demario, Rad Results In - 06/21/2019 10:42 PM PST | | CT HEAD WITHOUT CONTRAST | | | | CLINICAL INFORMATION: | | Altered mental status. | | | | COMPARISON: | | CT head 08/08/2017. | | | | PROCEDURE: | | Axial images were obtained through the brain without IV contrast. | | Coronal and sagittal reformations. | | | | At least one of the following CT dose optimization techniques were | | used: Automated exposure control, adjustment of mA and/or kV | | according to patient size, use of iterative reconstruction technique. | | | | FINDINGS: | | Mild to moderate motion degraded examination. | | | | No acute intracranial hemorrhage or surface collection is seen. No | | midline shift. | | | | Brain parenchymal appearances are within normal limits for age, with | | no abnormal areas of parenchymal hypodensity or hyperdensity. | | Ventricles, cisterns and sulci are otherwise normal. | | | | Mild intracranial atherosclerotic calcification in the cavernous and | | supraclinoid segments of both internal carotid arteries. No other | | abnormal hyperdensity of the major intracranial arterial and venous | | structures. 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 Mild nasal | | septal deviation to the left. | | | | Split atlas, a normal variant. Moderate bilateral TMJ DJD. | | Bilateral lens replacements. Metopic suture, a normal variant. | | | | The orbits, visualized paranasal sinuses, mastoid air cells, | | visualized skull base structures, calvarium and scalp soft tissues | | are otherwise normal. | | | | IMPRESSION: | | Mild to moderate motion degraded examination. No acute intracranial | | abnormality. Chronic intracranial findings as described. Extracranial | | findings, as described. No CT evidence of intracranial mass lesion, | | acute intracranial hemorrhage or large territorial acute infarction. | | No hydrocephalus. | | | | | | | | Signed by: Ngoc Mitchell Norbert | | Sign Date/Time: 06/21/2019 10:38 PM | + + + +---------+ + + | Performing | Address | City/State/Zipcode | Phone Number | | Organization | | | | + +---------+ + + | [facility] | | | | + +---------+ + + ECG 12 lead (06/21/2019 9:13 PM PST) + + | Specimen | + + | | + + + + + | Narrative | Performed At | + + + | HEART RATE:72 | [facility] | | bpmRR Interval:833 msAtrial Rate:72 msP-R Interval:220 msP | [facility] | | Duration:232 msP Horizontal [place]:14 degP Front [place]:55 degQ Onset:512 | | | msQRSD Interval:100 msQT Interval:424 msQTcB:465 msQTcF:451 msQRS | | | Horizontal [place]:257 degQRS [place]:-35 degI-40 Horizontal [place]:91 degI-40 | | | Front [place]:31 degT-40 Horizontal [place]:254 degT-40 Front [place]:-44 degT | | | Horizontal [place]:62 degT Wave [place]:45 degS-T Horizontal [place]:75 degS-T | | | Front [place]: degSeverity:- ABNORMAL ECG -INTERP:SINUS | | | RHYTHMINTERP:FIRST DEGREE AV BLOCKINTERP:LEFT AXIS | | | DEVIATIONINTERP:CONSIDER ANTERIOR INFARCTElectronically signed by: , | | | 06-22-2019 06:23:26 | | |QTcF:451 ms | | |QRS Horizontal [place]:257 deg | | |QRS [place]:-35 deg | | |I-40 Horizontal [place]:91 deg | | |I-40 Front [place]:31 deg | | |T-40 Horizontal [place]:254 deg | | |T-40 Front [place]:-44 deg | | |T Horizontal [place]:62 deg | | |T Wave [place]:45 deg | | |S-T Horizontal [place]:75 deg | | |S-T Front [place]: deg | | |Severity:- ABNORMAL ECG - | | |INTERP:SINUS RHYTHM | | |INTERP:FIRST DEGREE AV BLOCK | | |INTERP:LEFT AXIS DEVIATION | | |INTERP:CONSIDER ANTERIOR INFARCT | | |Electronically signed by: , 06-22-2019 06:23:26 | | + + + + + + + + | Performing | Address | City/State/Zipcode | Phone Number | | Organization | | | | + + + + + | [facility] | [address] | [place] [address] | [phone] | + + + + + POC Glucose (06/21/2019 8:48 PM PST) + + + + --+ + | Component | Value | Ref Range | Performed | Pathologist | | | | | At | Signature | + + + + --+ + | Glucose, | 98Comment: Performed by | 65 - 99 mg/dL | [facility] | | | POC | [facility] [address], | | SACRED | | | | [place] [address] | | HEART | | | |Performed by [facility] [address], [place] [address] | | MEDICAL | | | | | | CENTER | | | | | | LABORATORY | | | | | | [facility] | | + + + + --+ + + + | Specimen | + + | Blood specimen | | (specimen) | + + + + + + + | Performing | Address | City/State/Zipcode | Phone Number | | Organization | | | | + + + + + | [facility] | [address] | [place] [address] | | | [facility] | | | | | [facility] | | | | + + + + + XR Chest AP Portable (06/21/2019 8:44 PM PST) + + | Specimen | + + | | + + + + + | Narrative | Performed At | + + + | CHEST ONE VIEW CLINICAL INFORMATION: Respiratory distress. | [facility] | | COMPARISON: CT ANGIOGRAM PULMONARY (08/08/2017); XR CHEST AP | | | PORTABLE (08/08/2017); XR CHEST 1 VIEW (06/30/2017); XR CHEST 2 VIEW | | | (09/10/2014); FINDINGS/IMPRESSION: 1. No indwelling support lines | | | or tubes. 2. Low lung volumes. Streaky bilateral perihilar and | | | basilar atelectasis and/or edema. Somewhat focal streaky opacity in | | | the left upper lobe more prominent than on prior studies and likely | | | representing acute infiltrate or atelectasis superimposed on prior | | | scarring. No large effusion. 3. Stable cardiomegaly. 4. No | | | pneumothorax. Signed by: Ngoc Perez, Jeffy Hanson Date/Time: | | | 06/21/2019 9:00 PM | | + + + + + | Procedure Note | + + | Demario, Rad Results In - 06/21/2019 9:03 PM PST | | CHEST ONE VIEW | | | | CLINICAL INFORMATION: | | Respiratory distress. | | | | COMPARISON: | | CT ANGIOGRAM PULMONARY (08/08/2017); XR CHEST AP PORTABLE (08/08/2017); | | XR CHEST 1 VIEW (06/30/2017); XR CHEST 2 VIEW (09/10/2014); | | | | FINDINGS/IMPRESSION: | | 1. No indwelling support lines or tubes. | | 2. Low lung volumes. Streaky bilateral perihilar and basilar | | atelectasis and/or edema. Somewhat focal streaky opacity in the left | | upper lobe more prominent than on prior studies and likely | | representing acute infiltrate or atelectasis superimposed on prior | | scarring. No large effusion. | | 3. Stable cardiomegaly. | | 4. No pneumothorax. | | | | | | | | Signed by: Ngoc Perez Robin | | Sign Date/Time: 06/21/2019 9:00 PM | + + + +---------+ + + | Performing | Address | City/State/Zipcode | Phone Number | | Organization | | | | + +---------+ + + | [facility] | | | | + +---------+ + + Ethanol (06/21/2019 8:37 PM PST) + + + + --+ + | Component | Value | Ref Range | Performed | Pathologist | | | | | At | Signature | + + + + --+ + | ALCOHOL, | 7Comment: Performed by | 0 - 9 mg/dL | [facility] | | | SERUM/PLASM | [facility] [address], | | SACRED | | | A | [place] [address] | | HEART | | | |Performed by [facility] [address], [place] [address] | | MEDICAL | | | | | | CENTER | | | | | | LABORATORY | | | | | | [facility] | | + + + + --+ + + + | Specimen | + + | Blood specimen | | (specimen) | + + + + + + + | Performing | Address | City/State/Zipcode | Phone Number | | Organization | | | | + + + + + | [facility] AGU[facility] | [address] | [place] [address] | | | [facility] | | | | | [facility] | | | | + + + + + Hemoglobin A1C (06/21/2019 8:37 PM PST) + + + + + + | Component | Value | Ref Range | Performed | Pathologist | | | | | At | Signature | + + + + + + | Hemoglobin | 6.0Comment: The ADA | 4.3 - 6.1 % | [facility] | | | A1c | recommends A1C values of | | SACRED | | | | less than 7% as the | | HEART | | | | goal for diabetic | | MEDICAL | | | | therapy. | | CENTER | | | | | | LABORATORY | | | | | | [facility] | | + + + + + + | Estimated | 126Comment: The ADA | 65 - 154 mg/dL | [facility] | | | Average | considers an Estimated | | SACRED | | | Glucose | Average Glucose (eAG) | | HEART | | | | result of LT 154 mg/dL | | MEDICAL | | | | to be the goal of | | CENTER | | | | diabetic therapy. | | LABORATORY | | | | Estimated Average | | [facility] | | | | Glucose is calculated | | | | | | from hemoglobin A1c by | | | | | | use of the ADA | | | | | | recommended | | | | | | formula.Performed by [facility] | | | | | | [address], | | | | | | [place] [address] | | | | + + + + + + + + | Specimen | + + | Blood specimen | | (specimen) | + + + + + + + | Performing | Address | City/State/Zipcode | Phone Number | | Organization | | | | + + + + + | [facility] BENSON[facility]IV[facility] | [address] | [place] [address] | | | [facility] | | | | | [facility] | | | | + + + + + Lactic Acid (06/21/2019 8:37 PM PST) + + + + + + | Component | Value | Ref Range | Performed | Pathologist | | | | | At | Signature | + + + + + + | Lactate, | 0.7Comment: Performed | 0.5 - 2.2 | [facility] | | | Venous | by [facility] [address], | mmol/L | SACRED | | | | [place] [address] | | HEART | | | |Performed by [facility] [address], [place] [address] | | MEDICAL | | | | | | CENTER | | | | | | LABORATORY | | | | | | [facility] | | + + + + + + + + | Specimen | + + | Blood specimen | | (specimen) | + + + + + + + | Performing | Address | City/State/Zipcode | Phone Number | | Organization | | | | + + + + + | [facility] | [address] | [place] [address] | | | [facility] | | | | | [facility] | | | | + + + + + CBC with Manual Differential (06/21/2019 8:37 PM PST) + + + +------- ------+ + | Component | Value | Ref Range | Perfor med | Pathologist | | | | | At | Signature | + + + +------- ------+ + | WBC | 5.18 | 3.80 - 11.00 | [facility] | | | | | K/uL | SACRED | | | | | | HEART | | | | | | MEDICA L | | | | | | CENTER | | | | | | LABORA TORY | | | | | | [facility] | | + + + +------- ------+ + | RBC | 3.55 (L) | 3.70 - 5.10 | [facility] | | | | | M/uL | SACRED | | | | | | HEART | | | | | | MEDICA L | | | | | | CENTER | | | | | | LABORA TORY | | | | | | [facility] | | + + + +------- ------+ + | Hemoglobin | 10.9 (L) | 11.3 - 15.5 | [facility] | | | | | g/dL | SACRED | | | | | | HEART | | | | | | MEDICA L | | | | | | CENTER | | | | | | LABORA TORY | | | | | | [facility] | | + + + +------- ------+ + | Hct | 33.1 (L) | 34.0 - 46.0 % | [facility] | | | | | | SACRED | | | | | | HEART | | | | | | MEDICA L | | | | | | CENTER | | | | | | LABORA TORY | | | | | | [facility] | | + + + +------- ------+ + | MCV | 93.2 | 80.0 - 100.0 fL | [facility] | | | | | | SACRED | | | | | | HEART | | | | | | MEDICA L | | | | | | CENTER | | | | | | LABORA TORY | | | | | | [facility] | | + + + +------- ------+ + | MCH | 30.7 | 27.0 - 34.0 pg | [facility] | | | | | | SACRED | | | | | | HEART | | | | | | MEDICA L | | | | | | CENTER | | | | | | LABORA TORY | | | | | | [facility] | | + + + +------- ------+ + | MCHC | 32.9 | 32.0 - 35.5 | [facility] | | | | | g/dL | SACRED | | | | | | HEART | | | | | | MEDICA L | | | | | | CENTER | | | | | | LABORA TORY | | | | | | [facility] | | + + + +------- ------+ + | RDW-CV | 17.0 (H) | 11.0 - 15.5 % | [facility] | | | | | | SACRED | | | | | | HEART | | | | | | MEDICA L | | | | | | CENTER | | | | | | LABORA TORY | | | | | | [facility] | | + + + +------- ------+ + | Platelet | 160 | 150 - 400 K/uL | [facility] | | | Count | | | SACRED | | | | | | HEART | | | | | | MEDICA L | | | | | | CENTER | | | | | | LABORA TORY | | | | | | [facility] | | + + + +------- ------+ + | MPV | 10.9 | 9.3 - 12.7 fL | [facility] | | | | | | SACRED | | | | | | HEART | | | | | | MEDICA L | | | | | | CENTER | | | | | | LABORA TORY | | | | | | [facility] | | + + + +------- ------+ + | % Segmented | 51.0 | 38.0 - 70.0 % | [facility] | | | | | | SACRED | | | Neutrophils | | | HEART | | | | | | MEDICA L | | | | | | CENTER | | | | | | LABORA TORY | | | | | | [facility] | | + + + +------- ------+ + | % Bands | 3.0 | 0.0 - 8.0 % | [facility] | | | | | | SACRED | | | | | | HEART | | | | | | MEDICA L | | | | | | CENTER | | | | | | LABORA TORY | | | | | | [facility] | | + + + +------- ------+ + | % | 27.0 | 15.0 - 48.0 % | [facility] | | | Lymphocytes | | | SACRED | | | | | | HEART | | | | | | MEDICA L | | | | | | CENTER | | | | | | LABORA TORY | | | | | | [facility] | | + + + +------- ------+ + | % Monocytes | 15.0 (H) | 0.0 - 12.0 % | [facility] | | | | | | SACRED | | | | | | HEART | | | | | | MEDICA L | | | | | | CENTER | | | | | | LABORA TORY | | | | | | [facility] | | + + + +------- ------+ + | % | 1.0 | 0.0 - 7.0 % | [facility] | | | Eosinophils | | | SACRED | | | | | | HEART | | | | | | MEDICA L | | | | | | CENTER | | | | | | LABORA TORY | | | | | | [facility] | | + + + +------- ------+ + | % Basophils | 0.0 | 0.0 - 2.0 % | [facility] | | | | | | SACRED | | | | | | HEART | | | | | | MEDICA L | | | | | | CENTER | | | | | | LABORA TORY | | | | | | [facility] | | + + + +------- ------+ + | % Variant | 3.0 | 0.0 - 6.0 % | [facility] | | | Lymphocytes | | | SACRED | | | | | | HEART | | | | | | MEDICA L | | | | | | CENTER | | | | | | LABORA TORY | | | | | | [facility] | | + + + +------- ------+ + | Absolute | 2.64 | 1.80 - 7.70 | [facility] | | | Segmented | | K/uL | SACRED | | | Neutrophils | | | HEART | | | | | | MEDICA L | | | | | | CENTER | | | | | | LABORA TORY | | | | | | [facility] | | + + + +------- ------+ + | Absolute | 0.16 | 0.00 - 0.24 | [facility] | | | Bands | | K/uL | SACRED | | | | | | HEART | | | | | | MEDICA L | | | | | | CENTER | | | | | | LABORA TORY | | | | | | [facility] | | + + + +------- ------+ + | Absolute | 1.40 | 1.00 - 3.90 | [facility] | | | Lymphocytes | | K/uL | SACRED | | | | | | HEART | | | | | | MEDICA L | | | | | | CENTER | | | | | | LABORA TORY | | | | | | [facility] | | + + + +------- ------+ + | Absolute | 0.05 | 0.00 - 0.50 | [facility] | | | Eosinophils | | K/uL | SACRED | | | | | | HEART | | | | | | MEDICA L | | | | | | CENTER | | | | | | LABORA TORY | | | | | | [facility] | | + + + +------- ------+ + | Absolute | 0.00 | 0.00 - 0.10 | [facility] | | | Basophils | | K/uL | SACRED | | | | | | HEART | | | | | | MEDICA L | | | | | | CENTER | | | | | | LABORA TORY | | | | | | [facility] | | + + + +------- ------+ + | Absolute | 0.78 | 0.00 - 0.80 | [facility] | | | Monocytes | | K/uL | SACRED | | | | | | HEART | | | | | | MEDICA L | | | | | | CENTER | | | | | | LABORA TORY | | | | | | [facility] | | + + + +------- ------+ + | Absolute | 0.16 | K/uL | [facility] | | | Lymphocytes | | | SACRED | | | Variant | | | HEART | | | | | | MEDICA L | | | | | | CENTER | | | | | | LABORA TORY | | | | | | [facility] | | + + + +------- ------+ + | Platelet | Adequate | | [facility] | | | Estimate | | | SACRED | | | | | | HEART | | | | | | MEDICA L | | | | | | CENTER | | | | | | LABORA TORY | | | | | | [facility] | | + + + +------- ------+ + | Ovalocytes | 1+ | | [facility] | | | | | | SACRED | | | | | | HEART | | | | | | MEDICA L | | | | | | CENTER | | | | | | LABORA TORY | | | | | | [facility] | | + + + +------- ------+ + | Anisocytosi | 1+Comment: Performed by | | [facility] | | | s | [facility] [address], | | SACRED | | | | [place] [address] | | HEART | | | |Performed by [facility] [address], [place] [address] | | MEDICA L | | | | | | CENTER | | | | | | LABORA TORY | | | | | | [facility] | | + + + +------- ------+ + + + | Specimen | + + | Blood specimen | | (specimen) | + + + + + + + | Performing | Address | City/State/Zipcode | Phone Number | | Organization | | | | + + + + + | GR[facility] AGU[facility] | [address] | [place] [address] | | | [facility] | | | | | [place] | | | | + + + + + Joseime INR (06/21/2019 8:37 PM PST) + + + + + + | Component | Value | Ref Range | Performed | Pathologist | | | | | At | Signature | + + + + + + | Prothrombin | 12.7 | 12.0 - 14.2 sec | [facility] | | | Time | | | SACRED | | | | | | HEART | | | | | | MEDICAL | | | | | | CENTER | | | | | | LABORATORY | | | | | | [facility] | | + + + + + + | INR | 1.0Comment: Usual oral | 0.9 - 1.1 | [facility] | | | | anticoagulant range: 2.0 | | SACRED | | | | to 3.0 High level | | HEART | | | | oral anticoagulant | | MEDICAL | | | | range: 2.5 to 3.5 Direct | | CENTER | | | | Xa and IIa inhibitors | | LABORATORY | | | | may interfere with INR | | C[facility] | | | | determinations.Performed | | | | | | by [facility] [address], | | | | | | [place] [address] | | | | + + + + + + + + | Specimen | + + | Blood specimen | | (specimen) | + + + + + + + | Performing | Address | City/State/Zipcode | Phone Number | | Organization | | | | + + + + + | [facility] | [address] | [place] [address] | | | [facility] | | | | | [place] | | | | + + + + + Phosphorus (06/21/2019 8:37 PM PST) + + + +-------- -----+ + | Component | Value | Ref Range | Perform ed | Pathologist | | | | | At | Signature | + + + +-------- -----+ + | Phosphorus | 4.4Comment: Performed | 2.3 - 4.8 mg/dL | [facility] | | | | by [place] [address], | | SACRED | | | | [place] [address] | | HEART | | | |Performed by [facility] [address], [place] [address] | | MEDICAL | | | | | | CENTER | | | | | | LABORAT ORY | | | | | | [facility] | | + + + +-------- -----+ + + + | Specimen | + + | Blood specimen | | (specimen) | + + + + + + + | Performing | Address | City/State/Zipcode | Phone Number | | Organization | | | | + + + + + | GRACE AGUERO | [address] | [place] [address] | | | [facility] | | | | | [facility] | | | | + + + + + Magnesium (06/21/2019 8:37 PM PST) + + + + + + | Component | Value | Ref Range | Performed | Pathologist | | | | | At | Signature | + + + + + + | Magnesium | 1.5 (L)Comment: | 1.7 - 2.4 mg/dL | [facility] | | | | Performed by [facility] [address] | | SACRED | | | [address], [place] | | HEART | | | | [address] | | MEDICAL | | | | | | CENTER | | | | | | LABORATORY | | | | | | [place] | | + + + + + + + + | Specimen | + + | Blood specimen | | (specimen) | + + + + + + + | Performing | Address | City/State/Zipcode | Phone Number | | Organization | | | | + + + + + | GR[facility] AGU[facility] | [address] | [place] [address] | | | [facility] | | | | | [place] | | | | + + + + + Comprehensive Metabolic Panel (06/21/2019 8:37 PM PST) + + + + + + | Component | Value | Ref Range | Performed | Pathologist | | | | | At | Signature | + + + + + + | Na | 134 (L) | 135 - 145 | [facility] | | | | | mmol/L | SACRED | | | | | | HEART | | | | | | MEDICAL | | | | | | CENTER | | | | | | LABORATORY | | | | | | [facility] | | + + + + + + | K | 4.6 | 3.5 - 5.0 | [facility] | | | | | mmol/L | SACRED | | | | | | HEART | | | | | | MEDICAL | | | | | | CENTER | | | | | | LABORATORY | | | | | | [facility] | | + + + + + + | Cl | 100 | 99 - 109 mmol/L | [facility] | | | | | | SACRED | | | | | | HEART | | | | | | MEDICAL | | | | | | CENTER | | | | | | LABORATORY | | | | | | [facility] | | + + + + + + | CO2 | 31 (H) | 21 - 28 mmol/L | [facility] | | | | | | SACRED | | | | | | HEART | | | | | | MEDICAL | | | | | | CENTER | | | | | | LABORATORY | | | | | | [facility] | | + + + + + + | Calcium | 10.5 (H) | 8.5 - 10.2 | [facility] | | | | | mg/dL | SACRED | | | | | | HEART | | | | | | MEDICAL | | | | | | CENTER | | | | | | LABORATORY | | | | | | [place] | | + + + + + + | Anion Gap | 3 (L) | 5 - 16 mmol/L | [facility] | | | | | | SACRED | | | | | | HEART | | | | | | MEDICAL | | | | | | CENTER | | | | | | LABORATORY | | | | | | [facility] | | + + + + + + | Albumin | 3.7 | 3.5 - 5.0 g/dL | [facility] | | | | | | SACRED | | | | | | HEART | | | | | | MEDICAL | | | | | | CENTER | | | | | | LABORATORY | | | | | | [facility] | | + + + + + + | BUN | 16 | 8 - 25 mg/dL | [facility] | | | | | | SACRED | | | | | | HEART | | | | | | MEDICAL | | | | | | CENTER | | | | | | LABORATORY | | | | | | [facility] | | + + + + + + | Creatinine | 1.00 | 0.50 - 1.00 | [facility] | | | | | mg/dL | SACRED | | | | | | HEART | | | | | | MEDICAL | | | | | | CENTER | | | | | | LABORATORY | | | | | | [facility] | | + + + + + + | Glucose | 92 | 65 - 99 mg/dL | [facility] | | | | | | SACRED | | | | | | HEART | | | | | | MEDICAL | | | | | | CENTER | | | | | | LABORATORY | | | | | | [facility] | | + + + + + + | Total | 5.9 (L) | 6.1 - 8.4 g/dL | [facility] | | | Protein | | | SACRED | | | | | | HEART | | | | | | MEDICAL | | | | | | CENTER | | | | | | LABORATORY | | | | | | [facility] | | + + + + + + | Alkaline | 98 | 35 - 115 U/L | [facility] | | | Phosphatase | | | SACRED | | | | | | HEART | | | | | | MEDICAL | | | | | | CENTER | | | | | | LABORATORY | | | | | | [facility] | | + + + + + + | ALT | 10 | 10 - 65 U/L | [facility] | | | | | | SACRED | | | | | | HEART | | | | | | MEDICAL | | | | | | CENTER | | | | | | LABORATORY | | | | | | [facility] | | + + + + + + | AST | 20 | 10 - 45 U/L | [facility] | | | | | | SACRED | | | | | | HEART | | | | | | MEDICAL | | | | | | CENTER | | | | | | LABORATORY | | | | | | [facility] | | + + + + + + | Bilirubin | 0.3 | 0.1 - 1.5 mg/dL | [facility] | | | Total | | | SACRED | | | | | | HEART | | | | | | MEDICAL | | | | | | CENTER | | | | | | LABORATORY | | | | | | [facility] | | + + + + + + | Estimated | 67 (L)Comment: eGFR<60 | >=90 | [facility] | | | GFR | consistent with impaired | mL/min/1.73m2 | SACRED | | | | kidney function.For | | HEART | | | | Americans, | | MEDICAL | | | | multiply the calculated | | CENTER | | | | GFR by 1.210Performed by | | LABORATORY | | | | [facility] [address], | | [place] | | | | [place] [address] | | | | + + + + + + + + | Specimen | + + | Blood specimen | | (specimen) | + + + + + + + | Performing | Address | City/State/Zipcode | Phone Number | | Organization | | | | + + + + + | [facility] | [address] | [place] [address] | | | [facility] | | | | | LABORAT[facility] | | | | + + + + + Respiratory pathogen panel, NAAT (06/21/2019 8:16 PM PST) + + + + + + | Component | Value | Ref Range | Performed | Pathologist | | | | | At | Signature | + + + + + + | Adenovirus | Not Detected | Not Detected | [facility] | | | DNA | | | [facility] | | | | | | [facility] | | | | | | MEDICAL | | | | | | CENTER | | | | | | LABORATORY | | | | | | [facility] | | + + + + + + | Coronavirus | Not Detected | Not Detected | [facility] | | | [address] | | | [facility] | | | | | | HEART | | | | | | MEDICAL | | | | | | CENTER | | | | | | LABORATORY | | | | | | [facility] | | + + + + + + | Coronavirus | Not Detected | Not Detected | [facility] | | | [id number] | | | [facility] | | | | | | HEART | | | | | | MEDICAL | | | | | | CENTER | | | | | | LABORATORY | | | | | | [facility] | | + + + + + + | Coronavirus | Not Detected | Not Detected | [facility] | | | [id number] | | | [facility] | | | | | | HEART | | | | | | MEDICAL | | | | | | CENTER | | | | | | LABORATORY | | | | | | [facility] | | + + + + + + | Coronavirus | Not Detected | Not Detected | [facility] | | | [id number] | | | [facility] | | | | | | HEART | | | | | | MEDICAL | | | | | | CENTER | | | | | | LABORATORY | | | | | | [facility] | | + + + + + + | Human | Not Detected | Not Detected | [facility] | | | metapneumov | | | [facility] | | | irus RNA | | | HEART | | | | | | MEDICAL | | | | | | CENTER | | | | | | LABORATORY | | | | | | [facility] | | + + + + + + | Rhinovirus/ | Not Detected | Not Detected | [facility] | | | Enterovirus | | | [facility] | | | | | | HEART | | | | | | MEDICAL | | | | | | CENTER | | | | | | LABORATORY | | | | | | [facility] | | + + + + + + | Influenza A | Not Detected | Not Detected | [facility] | | | RNA | | | [facility] | | | | | | HEART | | | | | | MEDICAL | | | | | | CENTER | | | | | | LABORATORY | | | | | | [facility] | | + + + + + + | Influenza B | Not Detected | Not Detected | [facility] | | | RNA | | | [facility] | | | | | | HEART | | | | | | MEDICAL | | | | | | CENTER | | | | | | LABORATORY | | | | | | [facility] | | + + + + + + | Parainfluen | Not Detected | Not Detected | [facility] | | | za Virus 1 | | | [facility] | | | [facility] | | | HEART | | | | | | MEDICAL | | | | | | CENTER | | | | | | LABORATORY | | | | | | [facility] | | + + + + + + | Parainfluen | Not Detected | Not Detected | [facility] | | | za Virus 2 | | | [facility] | | | RNA | | | HEART | | | | | | MEDICAL | | | | | | CENTER | | | | | | LABORATORY | | | | | | [facility] | | + + + + + + | Parainfluen | Not Detected | Not Detected | [facility] | | | za Virus 3 | | | [facility] | | | RNA | | | HEART | | | | | | MEDICAL | | | | | | CENTER | | | | | | LABORATORY | | | | | | [facility] | | + + + + + + | Parainfluen | Not Detected | Not Detected | [facility] | | | za Virus 4 | | | [facility] | | | RNA | | | HEART | | | | | | MEDICAL | | | | | | CENTER | | | | | | LABORATORY | | | | | | [facility] | | + + + + + + | RSV | Not Detected | Not Detected | [facility] | | | | | | [facility] | | | | | | HEART | | | | | | MEDICAL | | | | | | CENTER | | | | | | LABORATORY | | | | | | [facility] | | + + + + + + | B. | Not Detected | Not Detected | [facility] | | | parapertuss | | | [facility] | | | is DNA | | | HEART | | | | | | MEDICAL | | | | | | CENTER | | | | | | LABORATORY | | | | | | [facility] | | + + + + + + | Bordetella | Not Detected | Not Detected | [facility] | | | pertussis | | | [facility] | | | DNA | | | HEART | | | | | | MEDICAL | | | | | | CENTER | | | | | | LABORATORY | | | | | | [facility] | | + + + + + + | Chlamydophi | Not Detected | Not Detected | [facility] | | | la | | | [facility] | | | pneumoniae | | | HEART | | | DNA | | | MEDICAL | | | | | | CENTER | | | | | | LABORATORY | | | | | | [facility] | | + + + + + + | Mycoplasma | Not DetectedComment: | Not Detected | [facility] | | | pneumoniae | Performed by [facility] [address] | | SACRED | | | DNA | [address] [place] | | HEART | | | | [id number] | | MEDICAL | | | | | | CENTER | | | | | | LABORATORY | | | | | | [facility] | | + + + + + + + + | Specimen | + + | Body fluid sample | | (specimen) - Entire | | nasopharynx (body | | structure) | + + + + + + + | Performing | Address | City/State/Zipcode | Phone Number | | Organization | | | | + + + + + | [facility] | [address] | [place] [address] | | | [facility] | | | | | NICK GUTI[place]RREZ | | | | + + + + + Lactic Acid, Arterial, Respiratory (06/21/2019 8:12 PM PST) + + + + + + | Component | Value | Ref Range | Performed | Pathologist | | | | | At | Signature | + + + + + + | Lactate, | 0.5Comment: Performed | 0.5 - 1.6 | [facility] | | | Arterial | by [facility] [address], | mmol/L | SACRED | | | | [place] [address] | | HEART | | | |Performed by [facility] [address], [place] [address] | | MEDICAL | | | | | | CENTER | | | | | | LABORATORY | | | | | | [facility] | | + + + + + + + + | Specimen | + + | Blood specimen | | (specimen) | + + + + + + + | Performing | Address | City/State/Zipcode | Phone Number | | Organization | | | | + + + + + | [facility] | [address] | [place] [address] | | | [facility] | | | | | NICK GUTI[place]RREZ | | | | + + + + + Calcium, Ionized, Respiratory (06/21/2019 8:12 PM PST) + + + + + + | Component | Value | Ref Range | Performed | Pathologist | | | | | At | Signature | + + + + + + | Calcium, | 1.38 (H)Comment: Please | 1.19 - 1.33 | [facility] | | | Ionized | Note. Effective July | mmol/L | [facility]CRED | | | | 2018, New units of | | HEART | | | | measure and reference | | MEDICAL | | | | ranges. Results are now | | CENTER | | | | reported in mmol/L, and | | LABORATORY | | | | were previously reported | | [facility] | | | | in mg/dL. 1 mmol/L iCa | | | | | | is equivalent to 4.0 | | | | | | mg/dL iCa. | | | | + + + + + + | Calcium, pH | 1.33Comment: Please | 1 - 133 | [facility] | | | Normalized | Note. Effective July | mmol/L | SACRED | | | | 2018, New units of | | HEART | | | | measure and reference | | MEDICAL | | | | ranges. Results are now | | CENTER | | | | reported in mmol/L, and | | LABORATORY | | | | were previously reported | | [facility] | | | | in mg/dL. 1 mmol/L iCa | | | | | | is equivalent to 4.0 | | | | | | mg/dL iCa.Performed by | | | | | | [facility] [address], | | | | | | [place] [address] | | | | + + + + + + + + | Specimen | + + | Blood specimen | | (specimen) | + + + + + + + | Performing | Address | City/State/Zipcode | Phone Number | | Organization | | | | + + + + + | [facility] | [address] | [place] [address] | | | [facility] | | | | | LABORATORY [facility] | | | | + + + + + Chemistry Profile, Respiratory 3 (06/21/2019 8:12 PM PST) + + + + + + | Component | Value | Ref Range | Performed | Pathologist | | | | | At | Signature | + + + + + + | Cl | 96 (L) | 101 - 111 | [facility] | | | | | mmol/L | [facility]CRED | | | | | | HEART | | | | | | MEDICAL | | | | | | CENTER | | | | | | LABORATORY | | | | | | [facility] | | + + + + + + | Glucose | 97 | 65 - 99 mg/dL | [facility] | | | | | | [facility]CR[facility] | | | | | | HEART | | | | | | MEDICAL | | | | | | CENTER | | | | | | LABORATORY | | | | | | [facility] | | + + + + + + | K | 4.5Comment: Performed | 3.5 - 5.0 | [facility] | | | | on whole blood. Unable | mmol/L | [facility]CRED | | | | to evaluate for | | HEART | | | | hemolysis. | | MEDICAL | | | | | | CENTER | | | | | | LABORATORY | | | | | | [facility] | | + + + + + + | Na | 131 (L)Comment: | 135 - 145 | [facility] | | | | Performed on whole | mmol/L | [facility]ED | | | | blood. Unable to | | HEART | | | | evaluate for | | MEDICAL | | | | hemolysis.Performed by | | CENTER | | | | [facility] [address], | | LABORATORY | | | | [place] [address] | | [facility] | | + + + + + + + + | Specimen | + + | Blood specimen | | (specimen) | + + + + + + + | Performing | Address | City/State/Zipcode | Phone Number | | Organization | | | | + + + + + | [facility] | [address] | [place] [address] | | | [facility] | | | | | LABORATORY [facility] | | | | + + + + + Blood Gas, Arterial (06/21/2019 8:12 PM PST) + + + + + + | Component | Value | Ref Range | Performed | Pathologist | | | | | At | Signature | + + + + + + | pH, | 7.33 (L) | 7.37 - 7.47 | [facility] | | | Arterial | | | SACRED | | | | | | HEART | | | | | | MEDICAL | | | | | | CENTER | | | | | | LABORATORY | | | | | | [facility] | | + + + + + + | pCO2, | 62 (AA) | 32 - 43 mmHg | [facility] | | | Arterial | Comment: | | SACRED | | | | | | HEART | | | | COMPENSATED | | MEDICAL | | | | | | CENTER | | | | | | LABORATORY | | | | | | [facility] | | + + + + + + | pO2, | 70 | 65 - 80 mmHg | [facility] | | | Arterial | | | SACRED | | | | | | HEART | | | | | | MEDICAL | | | | | | CENTER | | | | | | LABORATORY | | | | | | [facility] | | + + + + + + | Base | 6.7 (H) | -2.5 - 2.5 | [facility] | | | Excess, | | mmol/L | [facility] | | | Arterial | | | HEART | | | | | | MEDICAL | | | | | | CENTER | | | | | | LABORATORY | | | | | | [facility] | | + + + + + + | HCO3, | 32.7 (H) | 23.0 - 28.0 | [facility] | | | Arterial | | mmol/L | SACRED | | | | | | HEART | | | | | | MEDICAL | | | | | | CENTER | | | | | | LABORATORY | | | | | | [facility] | | + + + + + + | ROUTE | 3LPM NC | | [facility] | | | | | | SACRED | | | | | | HEART | | | | | | MEDICAL | | | | | | CENTER | | | | | | LABORATORY | | | | | | [facility] | | + + + + + + | Methemoglob | 1.5 | 0.4 - 1.5 % | [facility] | | | in | | | SACRED | | | | | | HEART | | | | | | MEDICAL | | | | | | CENTER | | | | | | LABORATORY | | | | | | [facility] | | + + + + + + | Comment | [id number] | | [facility] | | | | | | [facility]CRED | | | | | | HEART | | | | | | MEDICAL | | | | | | CENTER | | | | | | LABORATORY | | | | | | [facility] | | + + + + + + | Oxygen | 13.0 (L) | 15.0 - 23.0 % | [facility] | | | Content, | | | SACRED | | | Arterial | | | HEART | | | | | | MEDICAL | | | | | | CENTER | | | | | | LABORATORY | | | | | | C[facility] | | + + + + + + | Hct | 32.5 (L) | 34.0 - 46.0 % | [facility] | | | | | | SACRED | | | | | | HEART | | | | | | MEDICAL | | | | | | CENTER | | | | | | LABORATORY | | | | | | [facility] | | + + + + + + | Carboxyhemo | 1.9 | 1.0 - 3.0 % | [facility] | | | globin | | | SACRED | | | | | | HEART | | | | | | MEDICAL | | | | | | CENTER | | | | | | LABORATORY | | | | | | CERN[facility] | | + + + + + + | Hemoglobin | 10.6 (L) | 11.3 - 15.5 | [facility] | | | | | g/dL | SACRED | | | | | | HEART | | | | | | MEDICAL | | | | | | CENTER | | | | | | LABORATORY | | | | | | C[facility] | | + + + + + + | O2SAT COOX | 86.8 (L)Comment: | 92.0 - 99.0 % | [facility] | | | ARTERIAL | Performed by [facility] [address] | | SACRED | | | | [address] [place] | | HEART | | | | [id number] | | MEDICAL | | | | | | CENTER | | | | | | LABORATORY | | | | | | CERNER | | + + + + + + + + | Specimen | + + | Blood specimen | | (specimen) | + + + + + + + | Performing | Address | City/State/Zipcode | Phone Number | | Organization | | | | + + + + + | [facility] | [address] | [place] [address] | | | [facility] | | | | | LABORATORY [facility] | | | | + + + + + MRSA NAAT (06/21/2019 7:49 PM PST) + + + + +- + | Component | Value | Ref Range | Performed | Pathologist | | | | | At | Signature | + + + + +- + | MRSA DNA | Negative | Negative | [facility] | | | | | | [facility]CR[facility] | | | | | | HEART | | | | | | MEDICAL | | | | | | CENTER | | | | | | LABORATORY | | | | | | [facility] | | + + + + +- + | Specimen | NasalComment: Performed | | [facility] | | | Source | by [facility] [address], | | SACRED | | | | [place] [address] | | HEART | | | |Performed by [facility] [address], [place] [address] | | MEDICAL | | | | | | CENTER | | | | | | LABORATORY | | | | | | CERNER | | + + + + +- + + + | Specimen | + + | Soft tissue sample | | (specimen) - Both | | anterior nares (body | | structure) | + + + + + + + | Performing | Address | City/State/Zipcode | Phone Number | | Organization | | | | + + + + + | [facility] | [address] | [place] [address] | | | [facility] | | | | | LABORATORY [facility] | | | | + + + + + ARRHYTHMIA MONITOR - EXTERNAL SCAN (06/21/2019 12:00 AM PST) + + + | Narrative | Performed At | + + + | Ordered by an | | | unspecified provider. | | + + + ECG - EXTERNAL SCAN (06/21/2019 12:00 AM PST) + + + | Narrative | Performed At | + + + | Ordered by an | | | unspecified provider. | | + + + documented in this encounter Visit Diagnoses + + | Diagnosis | + + | Polypharmacy - Primary Issue of repeat prescriptions | + + | Delirium due to another medical condition | + + | Bipolar I disorder (HCC) Bipolar I disorder, most recent episode (or current) | | unspecified | + + | Anxiety Anxiety state, unspecified | + + | Bipolar II disorder (HCC) Other bipolar disorders | + + | Chronic obstructive pulmonary disease, unspecified COPD type (HCC) | + + | Hypercarbic cerebral edema (HCC) Cerebral edema | + + | Insomnia, unspecified type | + + documented in this encounter Administered Medications + +--------+ +--------+------+------+ | Medication Order | MAR | Action | Dose | Rate | Site | | | Action | Date | | | | + +--------+ +--------+------+------+ | acetaminophen (TYLENOL) tablet | Given | 06/23/19 | 650 mg | | | | 650 mg 650 mg, Oral, EVERY 4 | | 20 8:24 | | | | | HOURS PRN, Pain, Starting Bridgette | | AM PST | | | | | 06/22/19 at 1124 | | | | | | + +--------+ +--------+------+------+ +-------+ +--------+---+---+ | Given | 06/22/19 | 650 mg | | | | | 20 4:04 | | | | | | PM PST | | | | +-------+ +--------+---+---+ | Given | 06/22/19 | 650 mg | | | | | 20 11:37 | | | | | | AM PST | | | | +-------+ +--------+---+---+ +---+---+ | | | +---+---+ + +-------+ +-------+---+---+ | albuterol-ipratropium 2.5-0.5 | Given | 06/23/19 | 3 mLs | | | | mg/3 mL nebulizer solution 3 mL | | 20 11:37 | | | | | 3 mL, Nebulization, RT Q6H, First | | AM PST | | | | | dose on Wed06/21/19 at 2100 | | | | | | + +-------+ +-------+---+---+ +-------+ +-------+---+---+ | Given | 06/23/19 | 3 mLs | | | | | 20 4:08 | | | | | | AM PST | | | | +-------+ +-------+---+---+ | Given | 06/22/19 | 3 mLs | | | | | 20 5:11 | | | | | | PM PST | | | | +-------+ +-------+---+---+ +---+---+ | | | +---+---+ + +-------+ +---------+---+---+ | budesonide-formoterol | Given | 06/22/19 | 2 puffs | | | | (SYMBICORT) 80-4.5 mcg/puff | | 20 5:11 | | | | | inhaler 2 puff 2 puff, | | PM PST | | | | | Inhalation, RT BID, First dose on | | | | | | | 06/21/19 at 2100, Shake well. | | | | | | | Use with spacer. Rinse mouth | | | | | | | after use., | | | | | | + +-------+ +---------+---+---+ +-------+ +---------+---+---+ | Given | 06/22/19 | 2 puffs | | | | | 20 4:15 | | | | | | AM PST | | | | +-------+ +---------+---+---+ +---+---+ | | | +---+---+ + +---------+ +---------+---+ + | cloNIDine (CATAPRES) 0.3 mg/24 | Patch | 06/22/19 | 1 patch | | Arm-Left | | hr 1 patch 1 patch, Transdermal, | Applied | 20 9:07 | | | Upper | | WEEKLY, First dose on Wed06/22/19 | | AM PST | | | | | at 0900 | | | | | | + +---------+ +---------+---+ + + +---+ | | | + +---+ | dextrose 10% (D10W) infusion | | | at 50 mL/hr, Intravenous, | | | CONTINUOUS PRN, hypoglycemia, | | | Starting 06/21/19 at 2038, | | | Start infusion if unable to | | | maintain blood glucose greater | | | than 70 mg/dL after two rounds of | | | hypoglycemia treatment. Recheck | | | blood glucose 30 minutes after | | | starting D10W then at least | | | hourly and PRN until it is | | | discontinued. Call provider to | | | discuss parameters for D10W | | | discontinuation., | | + +---+ | | | + +---+ | dextrose 50% injection 12.5-25 | | | g 12.5-25 g, Intravenous, PRN, | | | Low Blood Sugar, Starting Wed | | | 06/21/19 at 2038, For blood glucose | | | 50-69 mg/dl - give 12.5 g For | | | blood glucose less than 50 mg/dl | | | - give 25 g, | | + +---+ | | | + +---+ + +-------+ +-------+---+---+ | DULoxetine (CYMBALTA) DR | Given | 06/23/19 | 30 mg | | | | capsule 30 mg 30 mg, Oral, | | 20 8:24 | | | | | DAILY, First dose on Wed06/22/19 | | AM PST | | | | | at 1315, Do not open capsule., | | | | | | + +-------+ +-------+---+---+ +-------+ +-------+---+---+ | Given | 06/22/19 | 30 mg | | | | | 20 1:07 | | | | | | PM PST | | | | +-------+ +-------+---+---+ +---+---+ | | | +---+---+ + +-------+ +--------+---+ + | heparin 5,000 units/mL | Given | 06/23/19 | 5,000 | | Abdomen- | | injection 5,000 Units 5,000 | | 20 2:35 | Units | | LLQ | | Units, Subcutaneous, EVERY 12 | | PM PST | | | | | HOURS (2 times per day), First | | | | | | | dose on Wed06/23/19 at 1300 | | | | | | + +-------+ +--------+---+ + +---+---+ | | | +---+---+ + +-------+ + +---+ + | insulin glargine (LANTUS) | Given | 06/22/19 | 10 Units | | Abdomen- | | injection (vial) 10 Units 10 | | 20 9:57 | | | LLQ | | Units, Subcutaneous, NIGHTLY, | | PM PST | | | | | First dose on Wed06/22/19 at 2145, | | | | | | | For subcutaneous use only. Basal | | | | | | | (long acting) insulin. Only for | | | | | | | use with U-100 insulin syringe., | | | | | | | If NPO: Decrease dose, by: 50% | | | | | | + +-------+ + +---+ + +---+---+ | | | +---+---+ + +-------+ +---------+---+ + | insulin lispro (humaLOG) | Given | 06/23/19 | 3 Units | | Arm-Left | | injection (vial) 0-6 Units 0-6 | | 20 12:20 | | | Upper | | Units, Subcutaneous, 4 TIMES | | PM PST | | | | | DAILY WITH MEALS & NIGHTLY, First | | | | | | | dose on Wed06/21/19 at 2100, | | | | | | | [...] | | | | AC, NPO, Daytime [id number] Use | | | | | | | NIGHT DOSE for doses scheduled: | | | | | | | HS, Nighttime [id number] If | | | | | | | the BG is not checked before the | | | | | | | patient starts eating, do not | | | | | | | give correction insulin. Only for | | | | | | | use with U-100 insulin syringe., | | | | | | | | | | | | | + +-------+ +---------+---+ + +-------+ +---------+---+ + | Given | 06/23/19 | 1 Units | | Abdomen- | | | 20 6:35 | | | LLQ | | | AM PST | | | | +-------+ +---------+---+ + | Given | 06/22/19 | 1 Units | | Abdomen- | | | 20 9:00 | | | RLQ | | | PM PST | | | | +-------+ +---------+---+ + +---+---+ | | | +---+---+ + +-------+ +---------+---+---+ | levothyroxine (SYNTHROID) | Given | 06/23/19 | 300 mcg | | | | tablet 300 mcg 300 mcg, Oral, | | 20 6:34 | | | | | DAILY BEFORE BREAKFAST, First | | AM PST | | | | | dose on Bridgette 06/22/19 at 0730, Give | | | | | | | before breakfast., | | | | | | + +-------+ +---------+---+---+ +-------+ +---------+---+---+ | Given | 06/22/19 | 300 mcg | | | | | 20 6:41 | | | | | | AM PST | | | | +-------+ +---------+---+---+ +---+---+ | | | +---+---+ + +-------+ +--------+---+---+ | lubiprostone (AMITIZA) capsule | Given | 06/23/19 | 24 mcg | | | | 24 mcg 24 mcg, Oral, DAILY, | | 20 10:51 | | | | | First dose on [facility] 06/22/19 at 1315, | | AM PST | | | | | Do not break or chew capsules., | | | | | | + +-------+ +--------+---+---+ +-------+ +--------+---+---+ | Given | 06/22/19 | 24 mcg | | | | | 20 1:39 | | | | | | PM PST | | | | +-------+ +--------+---+---+ +---+---+ | | | +---+---+ + +-------+ +--------+---+---+ | magnesium oxide (MAG-OX) tablet | Given | 06/23/19 | 400 mg | | | | 400 mg 400 mg, Oral, 2 TIMES | | 20 8:24 | | | | | DAILY, First dose (after last | | AM PST | | | | | modification) on [facility] 06/22/19 at | | | | | | | 1115 | | | | | | + +-------+ +--------+---+---+ +-------+ +--------+---+---+ | Given | 06/22/19 | 400 mg | | | | | 20 8:14 | | | | | | PM PST | | | | +-------+ +--------+---+---+ | Given | 06/22/19 | 400 mg | | | | | 20 11:40 | | | | | | AM PST | | | | +-------+ +--------+---+---+ +---+---+ | | | +---+---+ + +---------+ +-----+ +---+ | magnesium sulfate 2 g/50 mL | New Bag | 06/22/19 | 2 g | 25 mL/hr | | | IVPB 2 g 2 g, Intravenous, | | 20 3:17 | | | | | Administer over 120 Minutes, | | PM PST | | | | | ONCE, [facility] 06/22/19 at 1530, For 1 | | | | | | | dose, Maximum recommended | | | | | | | infusion rate = 1 gram/hour., | | | | | | + +---------+ +-----+ +---+ +---+---+ | | | +---+---+ + +-------+ +------+---+---+ | melatonin tablet 3 mg 3 mg, | Given | 06/22/19 | 3 mg | | | | Oral, NIGHTLY PRN, MAY REPEAT X | | 20 9:58 | | | | | 1, , Starting Wed06/22/19 | | PM PST | | | | | at 2127 | | | | | | + +-------+ +------+---+---+ +---+---+ | | | +---+---+ + +-------+ +-------+---+---+ | methylPREDNISolone sodium | Given | 06/22/19 | 80 mg | | | | succinate (solu-MEDROL) 62.5 | | 20 1:09 | | | | | mg/mL injection 80 mg 80 mg, | | PM PST | | | | | Intravenous, EVERY 8 HOURS (3 | | | | | | | times per day), First dose on Wed | | | | | | | 06/21/19 at 2200, For 3 doses, Mix | | | | | | | with 2 mL provided diluent to | | | | | | | make 62.5 mg/mL., | | | | | | + +-------+ +-------+---+---+ +-------+ +-------+---+---+ | Given | 06/22/19 | 80 mg | | | | | 20 6:45 | | | | | | AM PST | | | | +-------+ +-------+---+---+ | Given | 06/21/19 | 80 mg | | | | | 20 10:53 | | | | | | PM PST | | | | +-------+ +-------+---+---+ +---+---+ | | | +---+---+ + +-------+ +-------+---+---+ | metoprolol succinate | Given | 06/23/19 | 50 mg | | | | (TOPROL-XL) ER tablet 50 mg 50 | | 20 8:24 | | | | | mg, Oral, DAILY, First dose on | | AM PST | | | | | Bridgette 06/22/19 at 0900, Tablet may be | | | | | | | cut where scored but do not | | | | | | | crush., | | | | | | + +-------+ +-------+---+---+ +-------+ +-------+---+---+ | Given | 06/22/19 | 50 mg | | | | | 20 8:45 | | | | | | AM PST | | | | +-------+ +-------+---+---+ +---+---+ | | | +---+---+ + +---------+ +---------+---+ + | nicotine (NICODERM) 21 mg/24 hr | Patch | 06/23/19 | 1 patch | | Arm-Left | | 1 patch 1 patch, Transdermal, | Applied | 20 8:24 | | | Lower | | DAILY, First dose on Wed06/21/19 | | AM PST | | | | | at 2130 | | | | | | + +---------+ +---------+---+ + + + +---------+---+ + | Patch Applied | 06/21/19 | 1 patch | | Deltoid- | | | 20 9:54 | | | Right | | | PM PST | | | | + + +---------+---+ + +---+---+ | | | +---+---+ + +-------+ +-------+---+---+ | oxyCODONE (ROXICODONE) tablet | Given | 06/22/19 | 10 mg | | | | 5-10 mg 5-10 mg, Oral, EVERY 3 | | 20 10:02 | | | | | HOURS PRN, Pain, Starting Bridgette | | PM PST | | | | | 06/22/19 at 1126 | | | | | | + +-------+ +-------+---+---+ +-------+ +-------+---+---+ | Given | 06/22/19 | 10 mg | | | | | 20 6:07 | | | | | | PM PST | | | | +-------+ +-------+---+---+ | Given | 06/22/19 | 10 mg | | | | | 20 3:01 | | | | | | PM PST | | | | +-------+ +-------+---+---+ +---+---+ | | | +---+---+ + +-------+ +-------+---+---+ | pantoprazole (PROTONIX) DR | Given | 06/23/19 | 40 mg | | | | tablet 40 mg 40 mg, Oral, DAILY | | 20 6:35 | | | | | BEFORE BREAKFAST, First dose on | | AM PST | | | | | Bridgette 06/22/19 at 0730, Do not cut or | | | | | | | crush., Indication: GERD | | | | | | + +-------+ +-------+---+---+ +-------+ +-------+---+---+ | Given | 06/22/19 | 40 mg | | | | | 20 6:41 | | | | | | AM PST | | | | +-------+ +-------+---+---+ +---+---+ | | | +---+---+ + +-------+ +-------+---+---+ | predniSONE (DELTASONE) tablet | Given | 06/23/19 | 20 mg | | | | 20 mg 20 mg, Oral, DAILY, First | | 20 8:24 | | | | | dose (after last modification) on | | AM PST | | | | | 06/23/19 at 0900, For 4 doses | | | | | | + +-------+ +-------+---+---+ +---+---+ | | | +---+---+ + +-------+ +--------+---+---+ | pregabalin (LYRICA) capsule 150 | Given | 06/23/19 | 150 mg | | | | mg 150 mg, Oral, EVERY MORNING, | | 20 8:24 | | | | | First dose (after last reorder) | | AM PST | | | | | on [facility] 06/22/19 at 1330 | | | | | | + +-------+ +--------+---+---+ +-------+ +--------+---+---+ | Given | 06/22/19 | 150 mg | | | | | 20 1:06 | | | | | | PM PST | | | | +-------+ +--------+---+---+ +---+---+ | | | +---+---+ + +-------+ +--------+---+---+ | pregabalin (LYRICA) capsule 300 | Given | 06/22/19 | 300 mg | | | | mg 300 mg, Oral, NIGHTLY, First | | 20 8:14 | | | | | dose on Wed06/22/19 at 2100 | | PM PST | | | | + +-------+ +--------+---+---+ +---+---+ | | | +---+---+ + +-------+ +--------+---+---+ | SITagliptin (JANUVIA) tablet | Given | 06/23/19 | 100 mg | | | | 100 mg 100 mg, Oral, DAILY, | | 20 8:24 | | | | | First dose on Wed06/22/19 at 1800 | | AM PST | | | | + +-------+ +--------+---+---+ +---+---+ | | | +---+---+ + +-------+ +-------+---+---+ | torsemide (DEMADEX) tablet 10 | Given | 06/23/19 | 10 mg | | | | mg 10 mg, Oral, DAILY, First | | 20 8:24 | | | | | dose (after last modification) on | | AM PST | | | | | 06/23/19 at 0900 | | | | | | + +-------+ +-------+---+---+ +---+---+ | | | +---+---+ + +-------+ +-------+---+---+ | torsemide (DEMADEX) tablet 20 | Given | 06/22/19 | 20 mg | | | | mg 20 mg, Oral, DAILY, First | | 20 2:08 | | | | | dose on [facility] 06/22/19 at 1330 | | PM PST | | | | + +-------+ +-------+---+---+ +---+---+ | | | +---+---+ + +-------+ +-------+---+---+ | ziprasidone (GEODON) capsule 60 | Given | 06/22/19 | 60 mg | | | | mg 60 mg, Oral, NIGHTLY, First | | 20 8:57 | | | | | dose on [facility] 06/22/19 at 2100, | | PM PST | | | | | Reproductive Risk: Use | | | | | | | appropriate handling precautions. | | | | | | | Give with food., | | | | | | + +-------+ +-------+---+---+ +---+---+ | | | +---+---+ documented in this encounter Additional Health Concerns + + + + | Infection | Noted Time | Resolved Time | + + + + | Rule out Respiratory Infection | 06/21/2019 8:09 PM | 06/21/2019 10:35 PM | | | PST | PST | + + + + documented as of this encounter"
--- OUTSIDE RECORDS SUMMARY | ~2019-09-02 | XMS | Encounter Summary ---
Demographics + + + | Address | [address] | | | [place] [address] | + + + | Home Phone [...] | | | | | [place] [address] | | + + + + + | Robson Min | ECON | Unknown | | + + + + + | Isabella Whitehead | ECON | Unknown | | + + + + + | Seven Neff | ECON | Unknown | | + + + + + Care Team Providers + +------+ + | Care Operations Liaison Name | Role | Phone | [...] + + | 08/25/ | Telephone | [facility] | Navdeep Grande, | Results (nocturnal | | 2014 | | PULMONARY [address] | MD [address] | oximetry on room | | | | [place], | [place], [place] | air) | | | | [place] [address] | [address] | | | | | [phone] | | | +--------+ + + + [...] [place] | | | | | | [address] | | | | | | | | +--------+---------+ + + + | 11/05/ | Office | Neurology | Tariq, | | | 2019 | Visit | | [address] | | | | | | [address] [place], | | | | | | [place] [address] | | | | | | [phone] | | | | | | | | +--------+---------+ + + + documented as of this encounter Visit Diagnoses Not on filedocumented in this encounter"
--- OUTSIDE RECORDS SUMMARY | ~2019-09-02 | XMS | Encounter Summary ---
Demographics + + + | Address | [address] | | | [place] [address] | + + + | Home Phone [...] | | | | | [place] [address] | | + + + + + Care Team Providers + +------+ + | Care Car Hiker Name | Role | Phone | + +------+ + PCP | Unavailable | + +------+ + Encounter Details +--------+ + + + + | Date | Type | Department | Care Team | Description | +--------+ + + + + | 11/02/ | Respiratory | | Other, Faculty | | | 2006 | Therapy | | [phone] | | +--------+ + + + + [...] | | | | Y | Zenobia Mlies RCP | | | | + + [...] [facility] | [address] | [place], [place] | | | DIAGNOSTICS - | [place] | [address] | | | PULMONARY FUNCTION | | | | + + + + + documented in this encounter Visit Diagnoses Not on filedocumented in this encounter"
--- OUTSIDE RECORDS SUMMARY | ~2019-09-02 | XMS | Encounter Summary ---
Demographics + + + | Address | [address] | | | [place] [address] | + + + | Home Phone [...] | | | | | [place] [address] | | + + + + + | Robson Min | ECON | Unknown | | + + + + + | Isabella Whitehead | ECON | Unknown | | + + + + + | Seven Neff | ECON | Unknown | | + + + + + Care Team Providers + +------+ + | Care Commutator Inspector Name | Role | Phone | [...] | 2019 | | HOSPITAL [facility] | [address] | Authorization | | | | [facility] [address] | [facility], | (Botox) | | | | [address] [place], | [place] [address] | | | | | [place] [address] | [phone] | | | | | [phone] | | | +--------+ + + + [...] | Visit | | MD Cely Gale [address] | | | | | | [place] | | | | | | [id number] | | | | | | | | +--------+---------+ + + + | 11/05/ | Office | Neurology | Tariq, | | | 2020 | Visit | | [address] | | | | | | [address] [place], | | | | | | [place] [address] | | | | | | [phone] | | | | | | | | +--------+---------+ + + + documented as of this encounter Visit Diagnoses Not on filedocumented in this encounter"
--- OUTSIDE RECORDS SUMMARY | ~2019-09-02 | XMS | Encounter Summary ---
Demographics + + + | Address | [address] | | | [place] [address] | + + + | Home Phone [...] | | | | | [place] [address] | | + + + + + | Robson Min | ECON | Unknown | | + + + + + | Isabella Whitehead | ECON | Unknown | | + + + + + | Seven Neff | ECON | Unknown | | + + + + + Care Team Providers + +------+ + | Care Stem Roller Or Crusher Operator Name | Role | Phone [...] | | [facility] [address] | [facility], | (Botox) | | | | [address] [place], | [place] [address] | | | | | [place] [address] | [phone] | | | | | [phone] | | | +--------+ + + + [...] [place] | | | | | | [address] | | | | | | | | +--------+---------+ + + + | 11/05/ | Office | Neurology | Tariq, | | | 2020 | Visit | | [address] | | | | | | [address] [place], | | | | | | [place] [address] | | | | | | [phone] | | | | | | | | +--------+---------+ + + + documented as of this encounter Visit Diagnoses Not on filedocumented in this encounter"
--- OUTSIDE RECORDS SUMMARY | ~2019-09-02 | XMS | Encounter Summary ---
Demographics + + + | Address | [address] | | | [place] [address] | + + + | Home Phone [...] | | | | | [place] [address] | | + + + + + Care Team Providers + +------+ + | Care Morphology Teacher Name | Role | Phone | + +------+ + PCP | Unavailable | + +------+ + Encounter Details +--------+ + + + + | Date | Type | Department | Care Team | Description | +--------+ + + + + | 10/23/ | Respiratory | | Other, Faculty | | | 2006 | Therapy | | [phone] | | +--------+ + + + + [...] [facility] | [address] | [place], [place] | | | DIAGNOSTICS - | [place] | [address] | | | PULMONARY FUNCTION | | | | + + + + + documented in this encounter Visit Diagnoses Not on filedocumented in this encounter"
--- OUTSIDE RECORDS SUMMARY | ~2019-09-02 | XMS | Encounter Summary ---
Demographics + + + | Address | [address] | | | [place] [address] | + + + | Home Phone [...] + + | Author | [facility] | | | and [place] | + + + | Organization | [facility] | | | [...] | | | | | [place] [address] | | + + + + + | Robson Min | ECON | Unknown | | + + + + + | Isabella Whitehead | ECON | Unknown | | + + + + + | Seven Neff | ECON | Unknown | | + + + + + Care Team Providers + +------+ + | Care Invasive Cardiologist Name | Role | Phone | + [...] | (Primary Dx) | | | | [place], | | | | | | [place] [address] | | | | | | [phone] | | | +--------+ + + + [...] [place] | | | | | | [address] | | | | | | | | +--------+---------+ + + + | 11/05/ | Office | Neurology | Tariq, | | | 2019 | Visit | | [address] | | | | | | [address] [place], | | | | | | [place] [address] | | | | | | [phone] | | | | | | | | +--------+---------+ + + + documented as of this encounter Results XR Chest PA and Lateral (04/04/2012 12:25 PM PST) + + | Specimen | + + | | + + + + + | Narrative | Performed At | + + + | [facility] | [place] | | Department [address] | [facility] | | [ rep [address]] [ rep [facility] | | st zip] Signed | - IMAGING | | | | | Patient Name: CARLINE MIN Physician: | | | RODRI : 1970 Age: 41 Sex: F Unit #: [id number] | | | Exam Date: 04/04/12 Location: [facility] | | | Report #: [id number] Page: | | | %(RAD)RES..mtdd.print.filter("pg") of %(RAD) | | | RES..mtdd.print.filter("tpg") | | | | | | Accession Number: [id number] | | | CHEST X-RAY, 04/04/2012 CLINICAL [...] | | | Transcribed Date/Time: 04/04/2012 15:34 Supervisor Instrument Maintenance: | | | <<Signature on File>> | | | Magdy | | | MD Shaun04/05/12 0055 <Electronically signed by Magdy Dunn MD> | | | Magdy Dunn MD 04/04/12 1225 Supervisor Instrument Maintenance: [employer] | | | Hubknrkpynrkz79/17/12 1534 Navdeep Grande MD | | | | | + + + + + + + + | Performing | Address | City/State/Zipcode | Phone Number | | Organization | | | | + + + + + | [facility] | [address] | [place] | [phone] | | [facility] | | [address] | | | - IMAGING | | | | + + + + + documented in this encounter Visit Diagnoses + + | Diagnosis | + + | Abnormal chest CT - Primary Nonspecific (abnormal) findings on radiological and other | | examination of other intrathoracic organs | + + documented in this encounter
--- OUTSIDE RECORDS SUMMARY | ~2019-09-02 | XMS | Encounter Summary ---
Demographics + + + | Address | [address] | | | [place] [address] | + + + | Home Phone [...] | | | | | [place] [address] | | + + + + + | Robson Min | ECON | Unknown | | + + + + + | Isabella Whitehead | ECON | Unknown | | + + + + + | Seven Neff | ECON | Unknown | | + + + + + Care Team Providers + +------+ + | Care Press Tender Smoke Signal Name | Role | Phone | + [...] | | | Pulmonology | respiratory | [address] | [address] | | | | | failure, | [address] | [place], | | | | | unspecified | [place] | [place] [address] | | | | | whether with | [address] | Phone: | | | | | hypoxia or | [place] | [phone] | | | | | hypercapnia | [address] | Fax: | | | | | ([facility]) | Phone: | [phone] | | | | | Procedures | [phone] | | | | | | F/U LAST | | | | | | | SEEN | | | | | | | 05/26/16 | | | +--------+--------+ + + + + Encounter Details +--------+---------+ + + + | Date | Type | Department | Care Team | Description | +--------+---------+ + + + | 10/18/ | Office | [facility] | Navdeep Grande, | COPD, mild ([facility]) | | 2018 | Visit | PULMONARY [address] | MD [address] | (Primary Dx); | | | | [place], | [place], [place] | Alveolar | | | | [place] [address] | [address] | hypoventilation | | | | [phone] | | | +--------+---------+ + + + [...] information carefully each time. Talk to your elevator operator regarding the use of this medicine in children. Special care may be needed. What side effects may I notice from receiving this medicine? Side effects that you should report to your doctor or health rn coronary care unit as soon as p ossible: allergic reactions like skin rash or hives, swelling of the face, lips, or tongue chest pain dizziness or lightheaded fever or chills irregular heartbeat vision problems Side effects that usually do not require medical attention (report to your doctor or health rn coronary care unit if they continue or are bothersome): coughing, [...] check ups. Tell your doctor or health rn coronary care unit if yo ur symptoms do not get [...] have surgery tell your doctor or health rn coronary care unit that you are using this medicine. Try [...] Elsevier documented in this encounter Progress Notes Nvadeep Grande MD - 10/18/2017 11:30 AM PDTFormatting [...] and was hospitalized for 4 days at [facility] with respiratory failure/COPD exacerbation. She was [...] 50,000 Units by mouth Once a w [place]., Disp: , Rfl: HYDROcodone-acetaminophen (NORCO) 7.5-325 mg [...] supplemental oxygen 1 L per min at [facility] while sleeping. Total duration of the patient's [...] [place] | | | | | | [address] | | | | | | | | +--------+---------+ + + + | 11/05/ | Office | Neurology | Tariq, | | | 2019 | Visit | | [address] | | | | | | [address] [place], | | | | | | [place] [address] | | | | | | [phone] | | | | | | | [...] | signed by: Navdeep Grande MD 11/19/2017 12:24[facility] | [facility] | | |physiology. Lung volume testing is [...] Grande MD 11/19/2017 12:24 | | |[facility] | | + + + documented in this encounter Visit Diagnoses + + | Diagnosis | + + | COPD, mild (HCC) - Primary Chronic airway obstruction, not elsewhere classified | + + | Alveolar hypoventilation Other dyspnea and respiratory abnormality | + + documented in this encounter
--- OUTSIDE RECORDS SUMMARY | ~2019-09-02 | XMS | Encounter Summary ---
Demographics + + + | Address | [address] | | | [place] [address] | + + + | Home Phone [...] | | | | | [place] [address] | | + + + + + | Robson Escobar | ECON | Unknown | | + + + + + | Isabella Whitehead | ECON | Unknown | | + + + + + | Seven Neff | ECON | Unknown | | + + + + + Care Team Providers + +------+ + | Care Cylinder Valve Repairer Name | Role | Phone | [...] | | | | pulmonary | [address] | | | | | | disease, | [address] [place] | | | | | | unspecified | [address]N | | | | | | COPD type | [place] | | | | | | ([facility]) | [address] | | | | | | | Phone: | | | | | | | [phone] | | | | | | | Fax: | | | | | | | [phone] | | + + + + + [...] + + | 06/20/ | Hospital | [facility] | Clint Bourgeois | Polypharmacy | | 2019 - | Encounter | [facility] | MD Silas [address] | (Primary Dx); | | | | CARDIAC MEDICAL [address] | [address] | Delirium due to | | 06/22/ | | [address], | [place] [address] | another medical | | 2019 | | [place] [address] | [phone] | condition; Bipolar I | | | | [phone] | | disorder (HCC); | | | | | Renee Ochoa | Anxiety; Bipolar II | | | | | MD [address] | disorder (HCC); | | | | | [address] [place] [address] | Chronic obstructive | | | | | [place] [address] | pulmonary disease, | | | | | [phone] | unspecified COPD | | | | [...] daughter patient already has a home health LIAISON PLANNER that helps her so they do not need any more home health needs. Electronically signed by: Devora Dominique RN 06/23/2019 1:56 PM Renee Morrissey MD - 06/23/2019 1:23 PM PST [facility] Patient: Carline Escobar [...] Juanito Avery [address] [place] [address] Go on 06/28/2019 Hospital follow up at 12:20 PM> Thank you. Jimbo Samayoa MD [address] , [place] [address] Go on 06/30/2019 Neurology at 8:15 AM. Navdeep Grande MD [address] [place] [address] Go on 07/27/2019 Pulmonology at 10:30AM. Discharge Disposition: Home with [facility]ants This Admission: ICU/ Psychiatry Hospital Course: 49 y.o.femalewith PMH including COPD, DM, hypothyroidism, RA, and GERD/ bipolar dx who was brought to [facility] ED on 06/20 after being discovered confused [...] orsening respiratory failure patient was transferred to [facility] ICU. 06/20: Admit from [facility] ([place]), weaned of BiPAP 06/21 transferred to hospital [...] e vening aka: [facility] Respiratory Therapy Supplies [facility] Portable oxygen concentrator to provide O2 at [...] this chart may have been created with BlueStacks voice recognition software. Occasi onal wrong-word or [...] of this encounter Progress Notes Hue Hull, Ball Point Splitter - 06/23/2019 3:20 PM PST PHARMACY SERVICES: [...] sources: interview with jeremy canada, Jaclyn Ramirez, [facility] [place], [place], and [facility]. Pharmacy Confidence Level: Medium. Medication History Requested by Provider: yes Best Possible CORRECTION WORKER Medication List After Pharmacy Review Prior to [...] and electronically signed by HUE HULL, Pharmacy [facility] 06/23/2019 3:20 PM Associated attestation - Yana Iyer PharmD - 06/23/2019 5:24 PM PSTReviewed CORRECTION WORKER med list changes and agree with discrepancies noted. Electronically signed by: Yana Iyer PharmD 06/23/2019 5:22 PM Renee Ochoa MD - 06/22/2019 3:07 PM PSTFormatting of this note might be differ ent from the original. Patient: Carline Escobar Date of : 1970 Admit Date: 06/21/2019 Date of Service: 06/22/2019 PCP: Juanito Avery [place] Hospital Day: Hospital Day: 2 Hospital Course: 49 y.o.femalewith PMH including COPD, DM, hypothyroidism, RA, and GERD/ bipolar dx who was brought to [facility] ED on 06/20 after being discovered confused [...] sening respiratory failure patient was transferred to [facility] ICU. 3/4: Admit from [facility] ([place]), weaned of BiPAP 3/5 transferred to hospital service floor/psychiatric team for polypharmacy Assessment and Plan: Assessment of active problems addressed today: AcuteCombined Hypoxic/HypercapnicRespiratory Failure-resolved - Secondary tovery mild COPD exacerbation - Change Solumedrol to Prednisone 40 mg daily, total 5 days - resp viral panel negative - Target goal SfK286-47% given history of COPD/will do BiPAP PRN [...] - Single Lumen 06/21/192112 Right Mid Forearm xcua-utm-wsfwde catheter system 20 gauge;1 1/4 in length [...] - 99 mg/dL Final Comment: Performed by [facility] [address] [facility] [place] [address] 06/22/2019 07:40 AM 139 (H) 65 - 99 mg/dL Final Comment: Performed by [facility] [address] [facility] [place] [address] 06/21/2019 08:48 PM 98 65 - 99 mg/dL Final Comment: Performed by [facility] [address] [facility] [place] [address] 08/19/2018 11:51 AM 180 (H) 70 - [...] the o riginal. Critical Care Progress Note [facility] Date of Service: 06/22/2019 Admit Date: 06/21/2019 Pt. Name: Carline Escobar Age: 49 y.o. : 1970 Code Status: Full Code by default - TBD Hospital Day: 2 ICU Admit Date: 06/21/19 Reason for Critical Care: Acute on Chronic Respiratory Failure, Polypharmacy Provider Teams: Primary: CCM Background/Hospital Course: 49 y.o. female with PMH including COPD, DM, hypothyroidism, RA, and GERD who was brought to [facility] ED on 06/20 after being discovered confused [...] respiratory failur e patient was transferred to [facility] ICU. Summary of Significant Events: 06/20: Admit from [place] ([place]), weaned of BiPAP Assessment & Plan [...] LABORATORY: I personally reviewed recent labs in [facility] and ordered appropriate follow-up joey dies. Recent [...] Component Value Date PHART 7.33 (L) 06/21/2019 ARO1KXY 62 (AA) 06/21/2019 PO2ART 70 06/21/2019 K6OCCJNQ 98 09/22/2018 IBH3EIJ 32.7 (H) 06/21/2019 BEART 6.7 (H) 06/21/2019 CARBOXYHGB 1.9 06/21/2019 LMINOFOXYGEN 1.0 09/22/2018 IMAGING: I personally reviewed the following radiology reports as well as imaging today: No new imaging today Level 3 follow up SIGNED BY: Clint Bourgeois MD, 06/22/2019, 12:41 PM Portions of this chart may have been created with BlueStacks voice recognition software. Occasi onal wrong-word or [...] | | | | | | [address]TH [facility] [place], | | | | | | [place] [address] | | | | | | [phone] | | | | | | | [...] | | | POC | Performed by [facility] [address] | | SACRED | | | | [address] [place] | | HEART | | | | [address] | | MEDICAL | | | | [...] + + | SHASHISAMIR AGUERO | [address] | [place] [address] | | | [facility] | | | | | LABORATORY BROCK [...] | | | POC | Performed by [facility] [address] | | SACRED | | | | [address], [place] | | HEART | | | | [address] | | MEDICAL | | | | [...] [address] | [place] [address] | | | [facility] | [...] | | LABORATORY | | | | [facility] [address] [place], | | CERNER | | | | [place] [address] | | | | + + + + + + + + | Specimen | + + | Blood specimen | | (specimen) | + + + + + + + | Performing | Address | City/State/Zipcode | Phone Number | | Organization | | | | + + + + + | [facility]ACE [facility] | [address] | [place] [address] | | | [facility] | | | | | LABORATORY CERLUCAS [...] ENCE | | | Immature | by [facility] [address], | K/uL | SACRED | | | Granulocyte | [place] [address] | | HEART | | | s |Performed by [facility] [address], [place] [address] | | MEDICA L | | | [...] + + | GRACE AGUERO | [address] | [place] [address] | | | [facility] | | | | | LABORATORY BROCK [...] PROVIDEN CE | | | | by [facility] [address], | | SACRED | | | | [place] | | HEART | | | |Performed by [facility] [address] [facility] [address], [place] | | MEDICAL | | | [...] + + | PROVID[facility]CTORE [facility] | [address] | [place], [place] | | | HEART [facility] | | | | | LABORATORY [...] | | | POC | Performed by [facility] [address] | | SACRED | | | | [address] [place] | | HEART | | | | [address] | | MEDICAL | | | | [...] + + | SHASHISAMIR AGUERO | [address] | [place] [address] | | | [facility] | | | | | LABORATORY BROCK [...] | | | POC | Performed by [facility] [address] | | SACRED | | | | [address], [place] | | HEART | | | | [address] | | MEDICAL | | | | [...] [address] | [place] [address] | | | HEART MEDICAL CENTER | [...] | | | POC | Performed by [facility] [address] | | SACRED | | | | [address] [place] | | HEART | | | | [address] | | MEDICAL | | | | [...] + + | GRACE AGUERO | [address] | [place] [address] | | | [facility] | | | | | LABORATORY CERNER [...] | | | POC | Performed by [facility] [address] | | SACRED | | | | [address], [place] | | HEART | | | | [address] | | MEDICAL | | | | [...] SACRED | [address] | [place] [address] | | | HEART MEDICAL CENTER | [...] PROVIDE NCE | | | | by [facility] [address], | | SACRED | | | | [place] | | HEART | | | |Performed by [facility] [address], [place] | | MEDICAL | | | [...] SACRED | [address] | [place], [place] | | | [facility] | | | | | [...] | | LABORATORY | | | | [facility] [address], | | CERNER | | | | [place] [address] | | | | + + + + + + + + | Specimen | + + | Blood specimen | | (specimen) | + + + + + + + | Performing | Address | City/State/Zipcode | Phone Number | | Organization | | | | + + + + + | [facility] | [address] | [place] [address] | | | [facility] | | | | | LABORATORY CERNER [...] | | | | | battery.Performed by [facility] | | | | | | [address], | | | | | | [place] [address] | | | | + + + [...] + + | GRACE AGUERO | [address] | [place] [address] | | | [facility] | | | | | NICK GUTIÉRREZ [...] | TRACEMASTER | | Duration:232 msP Horizontal [place]:14 degP Front [place]:55 degQ Onset:512 | | | msQRSD Interval:100 msQT Interval:424 msQTcB:465 msQTcF:451 msQRS | | | Horizontal [place]:257 degQRS [place]:-35 degI-40 Horizontal [place]:91 degI-40 | | | Front [place]:31 degT-40 Horizontal [place]:254 degT-40 Front [place]:-44 degT | | | Horizontal [place]:62 degT Wave [place]:45 degS-T Horizontal [place]:75 degS-T | | | Front [place]: degSeverity:- ABNORMAL ECG -INTERP:SINUS | | | RHYTHMINTERP:FIRST DEGREE AV BLOCKINTERP:LEFT AXIS | | | DEVIATIONINTERP:CONSIDER ANTERIOR INFARCTElectronically signed by: , | | | 06-22-2019 06:23:26 | | |QTcF:451 ms | | |QRS Horizontal [place]:257 deg | | |QRS [place]:-35 deg | | |I-40 Horizontal [place]:91 deg | | |I-40 Front [place]:31 deg | | |T-40 Horizontal [place]:254 deg | | |T-40 Front [place]:-44 deg | | |T Horizontal [place]:62 deg | | |T Wave [place]:45 deg | | |S-T Horizontal [place]:75 deg | | |S-T Front [place]: deg | | |Severity:- ABNORMAL ECG - [...] + + | MARGIE ALEXANDRA | [address] | [place] [address] | [phone] | + + + + + POC Glucose (06/21/2019 8:48 PM PST) + + + + --+ + | Component | Value | Ref Range | Performed | Pathologist | | | | | At | Signature | + + + + --+ + | Glucose, | 98Comment: Performed by | 65 - 99 mg/dL | PROVID[facility] | | | POC | [facility] [address], | | SACRED | | | | [place] [address] | | HEART | | | |Performed by [facility] [address], [place] [address] | | MEDICAL | | | | [...] + + | SHASHISAMIR AGUERO | [address] | [place] [address] | | | [facility] | | | | | LABORATORY BROCK [...] | [facility] | | | SERUM/PLASM | [facility] [address], | | SACRED | | | A | [place] [address] | | HEART | | | |Performed by [facility] [address], [place] [address] | | MEDICAL | | | | [...] + | SHASHIHECTOREden AGUERO | [address] | [place] [address] | | | [facility] | | | | | LABORATORY BROCK [...] | | | | | formula.Performed by [facility] | | | | | | [address], | | | | | | [place] [address] | | | | + + + + + + + + | Specimen | + + | Blood specimen | | (specimen) | + + + + + + + | Performing | Address | City/State/Zipcode | Phone Number | | Organization | | | | + + + + + | SHASHISAMIR BENSONVIVI | [address] | [place] [address] | | | [facility] | | | | | NICK GUTIÉRREZ [...] [facility]ENCE | | | Venous | by [facility] [address], | mmol/L | SACRED | | | | [place] [address] | | HEART | | | |Performed by [facility] [address], [place] [address] | | MEDICAL | | | | [...] + + | GRACE AGUERO | [address] | [place] [address] | | | [facility] | | | | | LABORATORY BROCK [...] PROVID ENCE | | | s | [facility] [address] [facility] [address], | | SACRED | | | | [place] [address] | | HEART | | | |Performed by [facility] [address] [place], [place] [address] | | MEDICA L | | | [...] + + | GRACE AGUERO | [address] | [place] [address] | | | [facility] | | | | | NICK GUTIÉRREZ [...] | | | | | | by [facility] [address] [place], | | | | | | [place] [address] | | | | + + + + + + + + | Specimen | + + | Blood specimen | | (specimen) | + + + + + + + | Performing | Address | City/State/Zipcode | Phone Number | | Organization | | | | + + + + + | SHASHIHECTOREden BENSONVIVI | [address] | [place] [address] | | | [facility] | | | | | NICK GUTIÉRREZ [...] PROVIDE NCE | | | | by [place] [address], | | SACRED | | | | [place] [address] | | HEART | | | |Performed by [facility] [address], [place] [address] | | MEDICAL | | | | [...] + + | GRACE AGUERO | [address] | [place] [address] | | | [facility] | | | | | LABORATORY BROCK [...] GRACE | | | | Performed by [facility] [address] | | SACRED | | | | [address], [place] | | HEART | | | | [address] | | MEDICAL | | | | [...] | [address] | [place] [address] | | | HEART [facility] | | | | | NICK [...] | | LABORATORY | | | | [facility] [address], | | BRCOK | | | | [place] [address] | | | | + + + + + + + + | Specimen | + + | Blood specimen | | (specimen) | + + + + + + + | Performing | Address | City/State/Zipcode | Phone Number | | Organization | | | | + + + + + | [facility] | [address] | [place] [address] | | | [facility] | | | | | LABORATORY CERNER [...] | | | pneumoniae | Performed by [facility] [address] | | SACRED | | | DNA | [address] [place] | | HEART | | | | [address] | | MEDICAL | | | | [...] + + | GRACE AGUERO | [address] | [place] [address] | | | [facility] | | | | | NICK GUTIÉRREZ [...] PROVIDENCE | | | Arterial | by [facility] [address], | mmol/L | SACRED | | | | [place] [address] | | HEART | | | |Performed by [facility] [address], [place] [address] | | MEDICAL | | | | [...] + | SHASHIHECTOREden AGUERO | [address] | [place] [address] | | | [facility] | | | | | NICK GUTIÉRREZ [...] by | | | | | | [facility] [address] [place], | | | | | | [place] [address] | | | | + + + + + + + + | Specimen | + + | Blood specimen | | (specimen) | + + + + + + + | Performing | Address | City/State/Zipcode | Phone Number | | Organization | | | | + + + + + | GRACE AGUERO | [address] | [place] [address] | | | [facility] | | | | | LABORATORY CERNER [...] | | CENTER | | | | [facility] [address], | | LABORATORY | | | | [place] [address] | | CERNER | | + + + + + + + + | Specimen | + + | Blood specimen | | (specimen) | + + + + + + + | Performing | Address | City/State/Zipcode | Phone Number | | Organization | | | | + + + + + | [facility] | [address] | [place] [address] | | | [facility] | | | | | LABORATORY CERNER [...] | | | ARTERIAL | Performed by [facility] [address] | | SACRED | | | | [address] [place] | | HEART | | | | [address] | | MEDICAL | | | | [...] + + | [facility] | [address] | [place] [address] | | | [facility] | | | | | [...] [facility] | | | Source | by [facility] [address], | | SACRED | | | | [place] [address] | | HEART | | | |Performed by [facility] [address], [place] [address] | | MEDICAL | | | | [...] + + | GRACE AGUERO | [address] | [place] [address] | | | [facility] | | | | | LABORATORY BROCK [...] | | | | AC, NPO, Daytime 5015-4968 Use | | | | | | | NIGHT DOSE for doses scheduled: | | | | | | | HS, Nighttime 8572-7588 If | | | | | | [...] | | | | First dose on [facility] 06/22/19 at 1315, | | AM PST [...] | | | | | modification) on [facility] 06/22/19 at | | | | | [...] PST | | | | | ONCE, [facility] 06/22/19 at 1530, For 1 | | [...] PST | | | | | on [facility] 06/22/19 at 1330 | | | | [...] | | | | | dose on [facility] 06/22/19 at 1330 | | PM PST | | | | + +-------+ +-------+---+---+ +---+---+ | | | +---+---+ + +-------+ +-------+---+---+ | ziprasidone (GEODON) capsule 60 | Given | 06/22/19 | 60 mg | | | | mg 60 mg, Oral, NIGHTLY, First | | 20 8:57 | | | | | dose on [facility] 06/22/19 at 2100, | | PM PST [...]
--- OUTSIDE RECORDS SUMMARY | ~2019-09-02 | XMS | Encounter Summary ---
Demographics + + + | Address | [address] | | | [place] [address] | + + + | Home Phone [...] | | | | | [place] [address] | | + + + + + | Robson Escobar | ECON | Unknown | | + + + + + | Isabella Whitehead | ECON | Unknown | | + + + + + | Seven Neff | ECON | Unknown | | + + + + + Care Team Providers + +------+ + | Care Hunter Guide Name | Role | Phone | + [...] | (Primary Dx) | | | | [address] [place], | [place] | | | | | [place] [address] | [address] | | | | | [phone] | | | +--------+---------+ + + + [...] FLEXPEN SC), SOLN, Disp: , Rfl: ; kazxdljhwm-nzxsdlc-zrqusyta (BUTALBITAL COMPOUND/ A) per tablet, One tablet [...] | | | | | [place] | | | | | | [address] | | | | | | | | +--------+---------+ + + + | 11/05/ | Office | Neurology | Tariq, | | | 2019 | Visit | | [address] | | | | | | [address] [facility], | | | | | | [place] [address] | | | | | | [phone] | | | | | | | | +--------+---------+ + + + documented as of this encounter Results XR Chest PA and Lateral (10/18/2012 11:44 AM PDT) + + | Specimen | + + | | + + + + + | Narrative | Performed At | + + + | [facility] | [place] | | Department [address] [facility] [address] | [facility] | | [ rep [address]] [ rep [facility] | | st zip] Signed | - IMAGING | | | | | Patient Name: CARLINE ESCOBAR Physician: | | | RODRI : 1970 Age: 42 Sex: F Unit #: [id number] | | | Exam Date: 10/18/12 Location: [facility] | | | Report #: [id number] Page: | | | %(RAD)RES..mtdd.print.filter("pg") of %(RAD) | | | RES..mtdd.print.filter("tpg") | | | | | | Accession Number: [id number] | | | [facility] [...] Transcribed Date/Time: 10/18/2012 12:20 | | | Rand Butter: <<Signature on | | | File>> | | | Ace Avery MD10/18/12 1439 <Electronically signed by | | | Ace Avery MD> Ace Avery MD 10/18/12 | | | [address] Rand Butter: [employer] Fprmpkknorwvl47/02/13 1220 | | | Navdeep Grande MD | | + + + + + + + + | Performing | Address | City/State/Zipcode | Phone Number | | Organization | | | | + + + + + | [facility] | [address] | [place] | [phone] | | [facility] | | [address] | | | - IMAGING | | | | + + + + + documented in this encounter Visit Diagnoses + + | Diagnosis | + + | Abnormal chest CT - Primary Nonspecific (abnormal) findings on radiological and other | | examination of other intrathoracic organs | + + documented in this encounter
--- OUTSIDE RECORDS SUMMARY | ~2019-09-02 | XMS | Encounter Summary ---
Demographics + + + | Address | [address] | | | [place] [address] | + + + | Home Phone [...] | | | | | [place] [address] | | + + + + + | Robson Min | ECON | Unknown | | + + + + + | Isabella Whitehead | ECON | Unknown | | + + + + + | Seven Neff | ECON | Unknown | | + + + + + Care Team Providers + +------+ + | Care Continuity Clerk Name | Role | Phone | [...] | MED CTR EXTERNAL | MD [address]ira [address] | | | | | IMAGING [address] | [address] | | | | | [address] | [place] [address] | | | | | [place] [address] | | | | | | [phone] | | | +--------+ + + + [...] [place] | | | | | | [address] | | | | | | | | +--------+---------+ + + + | 11/05/ | Office | Neurology | Tariq, | | | 2019 | Visit | | [address] | | | | | | [address] [place], | | | | | | [place] [address] | | | | | | [phone] | | | | | | | [...] for this | | | e | 9:35 AM | | procedure are in the | | | | PDT | | results section. | + +--------+ + + + documented in this encounter Results XR Chest AP Portable (08/17/2018 9:35 AM PDT) + + | Specimen | [...]
--- OUTSIDE RECORDS SUMMARY | ~2019-09-02 | XMS | Encounter Summary ---
Demographics + + + | Address | [address] | | | [place] [address] | + + + | Home Phone [...] | | | | | [place] [address] | | + + + + + Care Team Providers + +------+ + | Care Shop Assistant Name | Role | Phone | [...] DEPARTMENT OF | [address] | [place] [address] | | | PATHOLOGY | [address] | | | + + + + + | [facility] DEPARTMENT OF | [address] | [place] [address] | | | PATHOLOGY | [address] [...] | + + + + + | [facility] DEPARTMENT | [address] [facility] | [place] [address] | | | PATHOLOGY | [address] | | | + + + + + | [facility] DEPARTMENT | [address] [facility] | [place] [address] | | | PATHOLOGY | [address] | | | + + + + + documented in this encounter Visit Diagnoses Not on filedocumented in this encounter"
--- OUTSIDE RECORDS SUMMARY | ~2019-09-02 | XMS | Encounter Summary ---
Demographics + + + | Address | [address] | | | [place] [address] | + + + | Home Phone [...] + | Author | [facility] | + + + | Organization | [facility] | + + + | Address | Unknown | + + + | Phone | Unavailable | + + + Support + + + + + | Name | Relationship | Address | Phone | + + + + + | Scot Johnson | ECON | [address] | | | | | [place] [address] | | + + + + + Care Team Providers + +------+ + | Care Civil Attorney Name | Role | Phone | [...] W | | | | ON | [facility] [address] | | | | | [address] | Road [place], [place] | | | | | Mailcode: [id number] | [phone] | | | | | [facility] | | | | | | [facility], | | | | | | [address] | | | | | | [place], [place] | | | | | | [phone] | | | | | | [phone] | | | +--------+ + + + [...]
--- OUTSIDE RECORDS SUMMARY | ~2019-09-02 | XMS | Encounter Summary ---
Demographics + + + | Address | [address] | | | [place] [address] | + + + | Home Phone [...] | | | | | [place] [address] | | + + + + + Care Team Providers + +------+ + | Care Armored Service Technician Name | Role | Phone [...] as of this encounter Progress Notes Interface, Buggy Loader In - 01/09/2006 1:08 AM [facility] [facility] [place], [place] [address] or April 04, 2001 Tracy Koo M.D. [address] [address] RE: CARLINE MIN MR #: [id number] Dear [...] her to travel all the way from [place] to [place] for these appointments, but unfortunately, I have [...] has a child and lives outside of [place], [place]. She does not smoke, drink, or [...] 2 through 5 bilaterally. She has preserved office correspondent strength, but lacks full office correspondent range of motion of 4th and 5th [...] it occurred in a local area of [place], and the patient cannot recall much information [...] referring your patient to Rheumatology Clinic at [facility]. Please contact me after you receive this letter with your thoughts on Remicade in this patient. You can page me through the [facility] cut press operator at [phone] and ask them to page Dr. Dorene Waite, or you can leave a message and a time for me to contact you at [phone]. Our fax number at the clinic is [phone]. Sincerely Dorene Waite M.D. Rheumatology Fellow Deyvi Lainez M.D. CO / [id number] / [id number] / [id number] / [id number] signed by Interface, Buggy Loader In at 01/09/2006 1:08 AM PDTdoc umented in this encounter Plan of Treatment Not on filedocumented as of this encounter Visit Diagnoses Not on filedocumented in this encounter"
--- OUTSIDE RECORDS SUMMARY | ~2019-09-02 | XMS | Encounter Summary ---
Demographics + + + | Address | [address] | | | [place] [address] | + + + | Home Phone [...] | | | | | [place] [address] | | + + + + + | Robson Min | ECON | Unknown | | + + + + + | Isabella Whitehead | ECON | Unknown | | + + + + + | Seven Neff | ECON | Unknown | | + + + + + Care Team Providers + +------+ + | Care Depositing Machine Operator Name | Role | Phone [...] + | 09/25/ | Telephone | [facility] | Cecilio Amato MD | Appointment | | 2013 | | GASTROENTEROLOGY | [address] | (schedule gastric | | | | [address] [place] | [place], [place] | emptying study); | | | | [address] [place], [place] | [address] | Results (lab test | | | | [address] | [phone] | celiac sprue test) | | | | [phone] | | | +--------+ + + + [...] [place] | | | | | | [address] | | | | | | | | +--------+---------+ + + + | 11/05/ | Office | Neurology | Tariq, | | | 2019 | Visit | | AN[address]A Ven[address] | | | | | | [address] [place], | | | | | | [place] [address] | | | | | | [phone] | | | | | | | | +--------+---------+ + + + documented as of this encounter Visit Diagnoses Not on filedocumented in this encounter"
--- OUTSIDE RECORDS SUMMARY | ~2019-09-02 | XMS | Encounter Summary ---
Demographics + + + | Address | [address] | | | [place] [address] | + + + | Home Phone [...] | | | | | [place] [address] | | + + + + + | Robson Min | ECON | Unknown | | + + + + + | Isabella Whitehead | ECON | Unknown | | + + + + + | Seven Neff | ECON | Unknown | | + + + + + Care Team Providers + +------+ + | Care Steam Shovel Engineer Name | Role | Phone | [...] | | | Pulmonology | obstructive | [address] | [address] | | | | | pulmonary | [address] | [place], | | | | | disease, | [place] | [place] [address] | | | | | unspecified | 3-106 | Phone: | | | | | ([facility]) | [place] | [phone] | | | | | Procedures | [address] | Fax: | | | | | F/U | Phone: | [phone] | | | | | | [phone] | | +--------+--------+ + + + + Encounter Details +--------+---------+ + + + | Date | Type | Department | Care Team | Description | +--------+---------+ + + + | 05/26/ | Office | [facility] | Navdeep Grande, | COPD, mild (HCC) | | 2017 | Visit | PULMONARY [address] | MD [address] | (Primary Dx); | | | | [place], | [place], [place] | Alveolar | | | | [place] [address] | [address] | hypoventilation | | | | [phone] | | | +--------+---------+ + + + [...] quit within a month, and do it. Longoria to your quit plan Talk to your [...] Track your triggers What gives you that N-juls-w-cigarette feeling? List all the situations that make [...] wants to stop smoking. Date Last Reviewed: 10/18/201519991711-[address] [employer] [place] [address]. All righ ts reserved. This information is [...] pain Diabetes mellitus, type 2 ([facility]) Vitamin D deficiency Hypercholesterolemia Hypothyroidism Panic anxiety syndrome IBS (irritable bowel syndrome) Restless leg syndrome Urinary hesitancy Lumbago Nocturia Pyoderma gangreosum-LE Bipolar 1 disorder ([facility]) Hypertension Lymphedema Nausea and vomiting Reflux esophagitis GI bleeding Empyema lung ([facility]) 2005 right Knee pain CHRONIC TENSION [...] mouth 2 times daily., Disp: , Rfl: vphssvuyoa-dduripw-cedeolwo (BUTALBITAL COMPOUND/ASA) per tablet, One tablet by [...] 50,000 Units by mouth Once a w [place]., Disp: , Rfl: fluticasone-salmeterol (ADVAIR HFA) 45-21 [...] Seasonal influenza vaccination January 2017. CC: Bart Walker, DO documented in this encounter Plan of Treatment +--------+---------+ + + + | Date | Type | Specialty | Care Team | Description | +--------+---------+ + + + | 09/27/ | Office | Pulmonology | Navdeep Grande, | | | 2019 | Visit | | MD Cely GORE | | | | | | [place] | | | | | | [address] | | | | | | | | +--------+---------+ + + + | 11/05/ | Office | Neurology | Tariq, | | | 2019 | Visit | | [address]A [address] | | | | | | [address] [place], | | | | | | [place] [address] | | | | | | [phone] | | | | | | | | +--------+---------+ + + + documented as of this encounter Visit Diagnoses + + | Diagnosis | + + | COPD, mild (HCC) - Primary Chronic airway obstruction, not elsewhere classified | + + | Alveolar hypoventilation Other dyspnea and respiratory abnormality | + + documented in this encounter
--- OUTSIDE RECORDS SUMMARY | ~2019-09-02 | XMS | Encounter Summary ---
Demographics + + + | Address | [address] | | | [place] [address] | + + + | Home Phone [...] | | | | | [place] [address] | | + + + + + | Robson Min | ECON | Unknown | | + + + + + | Isabella Whitehead | ECON | Unknown | | + + + + + | Seven Neff | ECON | Unknown | | + + + + + Care Team Providers + +------+ + | Care Vp Of Digital Marketing Name | Role | Phone | + +------+ + PCP | Unavailable | + +------+ + Encounter Details +--------+ + + + + | Date | Type | Department | Care Team | Description | +--------+ + + + + | 04/06/ | Hospital | [facility] | | | | 2000 | Encounter | MED CTR SLEEP | | | | | | CENTER [address] | | | | | | [place] | | | | | | [address] | | | | | | [phone] | | | +--------+ + + + [...] | | | | | [place] | | | | | | [address] | | | | | | | | +--------+---------+ + + + | 11/05/ | Office | Neurology | Tariq, | | | 2019 | Visit | | [address] | | | | | | [address] [place] [place], | | | | | | [place] [address] | | | | | | [phone] | | | | | | | | +--------+---------+ + + + documented as of this encounter Visit Diagnoses Not on filedocumented in this encounter"
--- OUTSIDE RECORDS SUMMARY | ~2019-09-02 | XMS | Encounter Summary ---
Demographics + + + | Address | [address] | | | [place] [address] | + + + | Home Phone [...] | | | | | [place] [address] | | + + + + + Care Team Providers + +------+ + | Care Colon And Rectal Surgeon Name | Role | Phone | [...] W | | | | ON | [facility] 4th Floor [address] | [address] | | | | | [address] | Road [place], [place] | | | | | Mailcode: CH4S | [address] | | | | | [facility] | | | | | | and Healing, | | | | | | Building 1,4th Floor | | | | | | [place], [place] | | | | | | [address] | | | | | | [phone] | | | +--------+ + + + [...]
--- OUTSIDE RECORDS SUMMARY | ~2019-09-02 | XMS | Encounter Summary ---
Demographics + + + | Address | [address] | | | [place] [address] | + + + | Home Phone [...] | | | | | [place] [address] | | + + + + + Care Team Providers + +------+ + | Care Piecer Up Name | Role | Phone | [...] as of this encounter Progress Notes Interface, Devops Architect In - 03/19/2006 1:11 AM [facility] [place] [facility] [address] [place], [place] [address] or May 16, 1999 Leland Marcum D. [address] [place] [address] RE: CARLINE MIN MR #: [id number] Dear Dr. Bright: I had the pleasure of evaluating your patient, Carline Min, in Rheumatology Clinic today. As you know, she is a 28-year-old female with rheumatoid arthritis, who was previously followed in this clinic, who presents to [facility]. She has had symptoms since [...] has full range of motion and good business education professor strength. There is no laboratory data available [...] months. This case was discussed with staff coremaker machine, Dr. Deyvi Lainez, who also examined the patient and agrees with the above. Thank you for allowing us to participate in the care of Mrs. Min, and please call if you wish to discuss her case any further. Lastly, we would appreciate if you could forward the results of her laboratory tests to us #[phone] (fax number). Sincerely, Ameya Steen M.D. Resident, Internal Medicine Deyvi Lainez M.D. Turkey Cleaner, Rheumatology [facility] / [id number] / [id number] / [id number] / [id number] signed by Interface, Devops Architect In at 03/19/2006 1:11 AM PSTdocume nted in this encounter Plan of Treatment Not on filedocumented as of this encounter Visit Diagnoses Not on filedocumented in this encounter"
--- OUTSIDE RECORDS SUMMARY | ~2019-09-02 | XMS | Encounter Summary ---
Demographics + + + | Address | [address] | | | [place] [address] | + + + | Home Phone | | + + + | Preferred Language | Unknown | + + + | Marital Status | Single | + + + | Latter Day Affiliation | CHR | + + + [...] | | | | | [place] [address] | | + + + + + Care Team Providers + +------+ + | Care Data Warehousing Engineer Name | Role | Phone | [...] as of this encounter Progress Notes Interface, Medical Office Worker In - 04/28/2006 1:02 AM PSTCLINIC DATE: [...] with Dr. Dawson. MD Letty Lipscomb M.D. School Leader, Medicine Arthritis and Rheumatic Disease ALBERTO/eddie Electronically signed by Interface, Medical Office Worker In at 01/2007 1:02 AM PSTdocumented in this encounter Plan of Treatment Not on filedocumented as of this encounter Visit Diagnoses Not on filedocumented in this encounter"
--- OUTSIDE RECORDS SUMMARY | ~2019-09-02 | XMS | Encounter Summary ---
Demographics + + + | Address | [address] | | | [place] [address] | + + + | Home Phone [...] | | | | | [place] [address] | | + + + + + | Robson Min | ECON | Unknown | | + + + + + | Isabella Whitehead | ECON | Unknown | | + + + + + | Seven Neff | ECON | Unknown | | + + + + + Care Team Providers + +------+ + | Care Streetcar Repairer Name | Role | Phone | [...] | MED CTR EXTERNAL | MD Shira 1952 | | | | | IMAGING [address] | [address] | | | | | [address] | [place] [address] | | | | | [place] [address] | | | | | | [phone] | | | +--------+ + + + [...] [place] | | | | | | [address] | | | | | | | | +--------+---------+ + + + | 11/05/ | Office | Neurology | Tariq, | | | 2019 | Visit | | [address] | | | | | | [address] [place], | | | | | | [place] [address] | | | | | | [phone] | | | | | | | [...]
--- OUTSIDE RECORDS SUMMARY | ~2019-09-02 | XMS | Encounter Summary ---
Demographics + + + | Address | [address] | | | [place] [address] | + + + | Home Phone [...] | | | | | [place] [address] | | + + + + + | Robson Min | ECON | Unknown | | + + + + + | Isabella Whitehead | ECON | Unknown | | + + + + + | Seven Neff | ECON | Unknown | | + + + + + Care Team Providers + +------+ + | Care Truck Switcher Name | Role | Phone | + +------+ + | Bart Ba DO | PCP | | + +------+ + Encounter Details +--------+ + + + + | Date | Type | Department | Care Team | Description | +--------+ + + + + | 03/15/ | [facility] | ALICEBrooke SHI | Jimbo Samayoa MD | Disorientation; | | 2017 | Encounter | HOSPITAL RESPIRATORY | [address] | Dizziness | | | | THERAPY [address] | [place] | | | | | [place] | [id number] | | | | | [address] | | | | | | [phone] | | | +--------+ + + + [...] 9 | | MISCIndications: | 550mlIPAP 19 [id number] | | | | | | Alveolar | 9 [id number] | | | | | | hypoventilation, [...] of this encounter Progress Notes Dong Jones STARTER CUP POWDER MIXER - 03/15/2018 12:18 PM PSTPatient said she [...] [place] | | | | | | [address] | | | | | | | | +--------+---------+ + + + | 11/05/ | Office | Neurology | Tariq, | | | 2019 | Visit | | [address]A [address] | | | | | | [address] [facility] | | | | | | [place] [address] | | | | | | [phone] | | | | | | | [...]
--- OUTSIDE RECORDS SUMMARY | ~2019-09-02 | XMS | Encounter Summary ---
Demographics + + + | Address | [address] | | | [place] [address] | + + + | Home Phone [...] | | | | | [place] [address] | | + + + + + | Robson Min | ECON | Unknown | | + + + + + | Isabella Whitehead | ECON | Unknown | | + + + + + | Seven Neff | ECON | Unknown | | + + + + + Care Team Providers + +------+ + | Care Acid Plant Helper Name | Role | Phone | [...] [place] | | | | | | [address] | [address] | | | | | | Phone: | Phone: | | | | | | [phone] | [phone] | | | | | | Fax: | Fax: | | | | | | [phone] | [phone] | +--------+--------+ + + + + Encounter Details +--------+ + + + + | Date | Type | Department | Care Team | Description | +--------+ + + + + | 01/19/ | Procedure | [facility] | Laine Batista DO | Dizziness; | | 2019 | visit | CARDIOLOGY EUGENIA | [address] | Heart palpitations | | | | [address] | [place] | | | | | [address] | [address] | | | | | [place] | | | | | | [address] | | | | | | [phone] | | | +--------+ + + + [...] of this encounter Progress Notes Beth Tamayo, Machine Tool Technician Instructor - 01/19/2019 3:30 PM PDT2 week cardiac event monitor placed on patient. EOB/Billing information discussed. Instructions given and understood. P atient instructed to call [facility] [employer] [facility] for any billing or monitor questions. JDW:LEAD CASHIER-AAMA. [facility] umented in this encounter Plan of Treatment +--------+---------+ + + + | Date | Type | Specialty | Care Team | Description | +--------+---------+ + + + | 09/27/ | Office | Pulmonology | Navdeep Grande, | | | 2019 | Visit | | [address] | | | | | | [place] | | | | | | [address] | | | | | | | | +--------+---------+ + + + | 11/05/ | Office | Neurology | Tariq, | | | 2019 | Visit | | [address]A [address] | | | | | | [address]TH [facility], | | | | | | [place] [address] | | | | | | [phone] | | | | | | | | +--------+---------+ + + + documented as of this encounter Visit Diagnoses + + | Diagnosis | + + | Dizziness Dizziness and giddiness | + + | Heart palpitations Palpitations | + + documented in this encounter"
--- OUTSIDE RECORDS SUMMARY | ~2019-09-02 | XMS | Encounter Summary ---
Demographics + + + | Address | [address] | | | [place] [address] | + + + | Home Phone [...] | | | | | [place] [address] | | + + + + + | Robson Min | ECON | Unknown | | + + + + + | Isabella Whitehead | ECON | Unknown | | + + + + + | Seven Neff | ECON | Unknown | | + + + + + Care Team Providers + +------+ + | Care Tire Balancer Name | Role | Phone | + [...] | MED CTR EXTERNAL | MD [address] | | | | | IMAGING [address] | [address] | | | | | [address] | [place] [address] | | | | | [place] [address] | | | | | | [phone] | | | +--------+ + + + [...] [place] | | | | | | [address] | | | | | | | | +--------+---------+ + + + | 11/05/ | Office | Neurology | Tariq, | | | 2019 | Visit | | [address] | | | | | | [address] [place], | | | | | | [place] [address] | | | | | | [phone] | | | | | | | [...]
--- OUTSIDE RECORDS SUMMARY | ~2019-09-02 | XMS | Encounter Summary ---
Demographics + + + | Address | [address] | | | [place] [address] | + + + | Home Phone | | + + + | Preferred Language | Unknown | + + + | Marital Status | Single | + + + | Islam Affiliation | CHR | + + + [...] | | | | | [place] [address] | | + + + + + Care Team Providers + +------+ + | Care After School Program Director Name | Role | Phone [...] | Transcriptions | + + | Interface, Formwork Carpenter In - 11/19/2005 2:03 AM PDT | | [id number] | | [id number] LUZ [place]OW[place] [id number] | | | | Date: 10/27/2005 | | | | Attending Surgeon: Anibal Starr M.D. | | | | Radiology Transcriptionist(s): Valerie Stone | | Ayo Calabrese MD [...] ribs | | were reapproximated with interrupted wyhmbu-qq-bvkpw #2 Vicryls. The | | serratus and [...] | | PS / HS | | [id number] / [id number] / [id number] / [id number] | | | | | | | | | | | | Electronically signed by Anibal Starr 11-18-2005 08:31:32 AM | + + documented in this encounter Visit Diagnoses Not on filedocumented in this encounter"
--- OUTSIDE RECORDS SUMMARY | ~2019-09-02 | XMS | Encounter Summary ---
Demographics + + + | Address | [address] | | | [place] [address] | + + + | Home Phone [...] | | | | | [place] [address] | | + + + + + | Robson Min | ECON | Unknown | | + + + + + | Isabella Whitehead | ECON | Unknown | | + + + + + | Seven Neff | ECON | Unknown | | + + + + + Care Team Providers + +------+ + | Care Learning Center Instructor Name | Role | Phone | [...] Services | Medicine | JESUSITA | Neno Benito | [place] [address] | | | Required | | (obstructive | MD [address] | [address] | | | | | sleep | [place] | [place], | | | | | apnea) | [facility] | [place] [address] | | | | | Nocturnal | [place], [place] | Phone: | | | | | oxygen | [address] | [phone] | | | | | desaturation | Phone: | Fax: | | | | | E66.2 | [phone] | [phone] | | | | | (ICD-10-CM) | Fax: | | | | | | - 278.03 | [phone] | | | | | | (ICD-9-CM) [...] | | | | | | | [place] POLYSOM | | | | | | [...] + + | 09/21/ | Hospital | [facility] | Neno Walker | JESUSITA (obstructive | | 2019 - | Encounter | MED CTR SLEEP | MD Srin[address] | sleep apnea); | | | | [place] [address] | [address] [place] | Obesity | | 09/22/ | | [place], [place] | [place] [address] | hypoventilation | | 2019 | | [address] | [phone] | syndrome (HCC); | | | | [phone] | | Nocturnal oxygen | | | [...] [place] | | | | | | [address] | | | | | | | | +--------+---------+ + + + | 11/05/ | Office | Neurology | Tariq, | | | 2019 | Visit | | [address]A [address] | | | | | | [address] [place], | | | | | | [place] [address] | | | | | | [phone] | | | | | | | [...] [facility] | | | [place] [address] | | | Polysomnogram Report on Kait [...] | | Neno Walker Jr., MD, FAASMMedical DirectorSelect Medical Specialty Hospital - Southeast Ohioariela Doll | | | [facility] | | | [place] Foot Piece Assembler of MedicineDelta Community Medical Center | | | [place], [place] | | |The kimmy oxygen saturation [...] | | | |Neno Walker Jr., MD, [facility] | | |Tank Processor | | |[facility] | | |[facility] | | |[place] | | |Clinical cloth desizing range tender | | |[facility] | | |[place], [place] | | + + + + + | Procedure Note | + + | Neno Walker Jr., MD - 09/30/2018 10:38 AM PDT [facility] | | Disorders [place], [place] [address]Gnxfkxcdtfsej Report on | | Kait Min performed [...] | | COPD.Neno Walker Jr., MD, FAASMMedical DirectorSelect Medical Specialty Hospital - Southeast Ohioariela Caceres Sleep | | Disorders CenterProMilitary Health SystemWalid Lenora CAClinical Associate | | Professor of MedicineGe[place], [place] | |Tank Processor | |Melly Doll [facility] | |[facility] | |[place] | |Clinical cloth desizing range tender | |[facility] | |[place], [place] | + + POC Blood Gases [...] + | GRACE FIGUEROA. | [address] | [place] | [phone] | | [facility] | | [address] | | | - LABORATORY | | [...]
--- OUTSIDE RECORDS SUMMARY | ~2019-09-02 | XMS | Encounter Summary ---
Demographics + + + | Address | [address] | | | [place] [address] | + + + | Home Phone [...] | | | | | [place] [address] | | + + + + + | Robson Min | ECON | Unknown | | + + + + + | Isabella Whitehead | ECON | Unknown | | + + + + + | Seven Neff | ECON | Unknown | | + + + + + Care Team Providers + +------+ + | Care City Planning Engineer Name | Role | Phone | + +------+ + | Bart Ba DO | PCP | | + +------+ + Encounter Details +--------+ + + + + | Date | Type | Department | Care Team | Description | +--------+ + + + + | 05/22/ | Abstract | [facility] [place] | Navdeep Grande, | | | 2015 | | PULMONARY [address] | MD [address] | | | | | [place], | [place] | | | | | [place] [address] | [address] | | | | | [phone] | | | +--------+ + + + [...] [place] | | | | | | [address] | | | | | | | | +--------+---------+ + + + | 11/05/ | Office | Neurology | Tariq, | | | 2019 | Visit | | [address] | | | | | | [address] [place], | | | | | | [place] [address] | | | | | | [phone] | | | | | | | | +--------+---------+ + + + documented as of this encounter Visit Diagnoses Not on filedocumented in this encounter"
--- OUTSIDE RECORDS SUMMARY | ~2019-09-02 | XMS | Encounter Summary ---
Demographics + + + | Address | [address] | | | [place] [address] | + + + | Home Phone [...] | | | | | [place] [address] | | + + + + + | Robson Min | ECON | Unknown | | + + + + + | Isabella Whitehead | ECON | Unknown | | + + + + + | Seven Neff | ECON | Unknown | | + + + + + Care Team Providers + +------+ + | Care Punch Card Operator Name | Role | Phone | [...] | | | Pulmonology | (chronic | [address] | [address] | | | | | obstructive | [address] | [place], | | | | | pulmonary | [place] | [place] [address] | | | | | disease) | [phone] | Phone: | | | | | ([facility]) | DANIEL TERESA | [phone] | | | | | Procedures | [address] | Fax: | | | | | F/U MARITA CRUZ | Phone: | [phone] | | | | | DARRICK GRANDE | [phone] | | | | | | 11/19/17 | | | +--------+--------+ + + + + Encounter Details +--------+---------+ + + + | Date | Type | Department | Care Team | Description | +--------+---------+ + + + | 11/19/ | Office | [facility] | Navdeep [place], | Hypoxemia (Primary | | 2018 | Visit | PULMONARY [address] | MD [address] | Dx); Tobacco use | | | | [place], | [place] | disorder; COPD, mild | | | | [place] [address] | [id number] | ([facility]); Alveolar | | | | [phone] | | hypoventilation | +--------+---------+ + + [...] instructions provided by your healthcare provider or [employer]. Check the oxygen supply level on the [...] if you have one. Date Last Reviewed: 08/18/201519991527-4406 [employer]. [address] [place], [place] [address] [address]. All [facility] ts reserved. This information is not [...] of intractable migraine Diabetes mellitus, type 2 ([facility]) Empyema lung ([facility]) 2006 right GI bleeding Hypercholesterolemia Hypertension Hypothyroidism [...] 50,000 Units by mouth Once a w [place]., Disp: , Rfl: fluticasone-salmeterol (ADVAIR DISKUS) [...] patient. The Chest CT(s) was performed at [facility]. No evidence of pulmonary emboli. A smal [...] [place] | | | | | | [id number] | | | | | | | | +--------+---------+ + + + | 11/05/ | Office | Neurology | Tariq, | | 2019 | Visit | | [address] | | [address] [place], | | | | | | [place] [address] | | | | | | [phone] | | | | | | | [...]
--- OUTSIDE RECORDS SUMMARY | ~2019-09-02 | XMS | Encounter Summary ---
Demographics + + + | Address | [address] | | | [place] [address] | + + + | Home Phone [...] | | | | | [place] [address] | | + + + + + Care Team Providers + +------+ + | Care Sat Act Instructor Name | Role | Phone | [...] | Transcriptions | + + | Interface, Continuous Improvement Lead In - 11/19/2005 2:03 AM PDT | | [id number] | | [id number] LUZ CROWLEY [id number] | | | | Date: 10/27/2005 | | | | Attending Surgeon: Anibal Starr M.D. | | | | Basic Sciences Professor(s): Valerie Stone | | Ayo Calabrese MD [...] ribs | | were reapproximated with interrupted ikldjy-bm-yndvu #2 Vicryls. The | | serratus and [...] | | PS / HS | | [id number] / [id number] / [id number] / [id number] | | | | | | | | | | | | Electronically signed by Anibal Starr 11-18-2005 08:31:32 AM | + + documented in this encounter Visit Diagnoses Not on filedocumented in this encounter"
--- OUTSIDE RECORDS SUMMARY | ~2019-09-02 | XMS | Encounter Summary ---
Demographics + + + | Address | [address] | | | [place] [address] | + + + | Home Phone [...] | | | | | [place] [address] | | + + + + + | Robson Min | ECON | Unknown | | + + + + + | Isabella Whitehead | ECON | Unknown | | + + + + + | Seven Neff | ECON | Unknown | | + + + + + Care Team Providers + +------+ + | Care Drupal Web Developer Name | Role | Phone | + +------+ + | Bart Ba DO | PCP | | + +------+ + Encounter Details +--------+ + + + + | Date | Type | Department | Care Team | Description | +--------+ + + + + | 04/21/ | Hospital | [facility] | Conversion | Pain | | 2013 | Encounter | CONVERSION DEP [address] | Transaction, | | | | | [address] | Provider Unknown | | | | | [place] | | | | | | [address] | (Fax) | | | | | [phone] | | | +--------+ + + + [...] | 0 | 10/08/19 | | | njthlbptrv-tntjwob-t | every 6 hours as | | [...] mg by mouth | | 0 | 05/24/20 | | | (EFFEXOR) 75 MG | [...] [place] | | | | | | [id number] | | | | | | | | +--------+---------+ + + + | 11/05/ | Office | Neurology | Tariq, | | | 2019 | Visit | | [address] | | | [address] [place], | | | | | | [place] [address] | | | | | | [phone] | | | | | | | [...] | Procedure Note | + + | Demario Jose Conversion - 12/02/2018 1:14 PM PDT This is a non-reportable procedure | | without a radiologist report and isused for image storage only | + + documented in this encounter Visit Diagnoses + + | Diagnosis | + + | Pain Generalized pain | + + documented in this encounter"
--- OUTSIDE RECORDS SUMMARY | ~2019-09-02 | XMS | Encounter Summary ---
Demographics + + + | Address | [address] | | | [place] [address] | + + + | Home Phone | | + + + | Preferred Language | Unknown | + + + | Marital Status | Single | + + + | Sikhism Affiliation | Unknown | + + + | Race | Unknown | + + + | Ethnic Group | Unknown | + + + Author + + + | Author | [facility] | | | and [place] | + + + | Organization | [facility] | | | [...] | | | | | [place] [address] | | + + + + + | Robson Min | ECON | Unknown | | + + + + + | Isabella Whitehead | ECON | Unknown | | + + + + + | Seven Neff | ECON | Unknown | | + + + + + Care Team Providers + +------+ + | Care Large Animal Husbandry Technician Name | Role | Phone | [...] Closed | | Radiology | Diagnoses | Samayoa, | [facility] | | | | | Dizziness | Jimbo Box, | [facility] | | | | | Procedures | MD [address] | | | | | MRI Brain w | [address], | [address] | | | | | wo Contrast | [place] [address] [place] | [place], [place] | | | | | | [place], [place] | [address] | | | | | | [address] | Phone: | | | | | | Phone: | [phone] | | | | | | [phone] | Fax: | | | | | | Fax: | [phone] | | | | | | [phone] | | +--------+--------+ + + + + Reason for Visit + + + | Reason | Comments | + + + | Follow-up | disorientation, diabetic polyneuropathy | + + + Encounter Details +--------+---------+ + + + | Date | Type | Department | Care Team | Description | +--------+---------+ + + + | 06/19/ | Office | [facility] | Jimbo Samayoa MD | Diabetic | | 2019 | Visit | [facility] | [address] | polyneuropathy | | | | CLINIC [address] | [place] | associated with type | | | | DR [place]AC[place], | [address] | 2 diabetes mellitus | | | | [place] [address] | | ([facility]) (Primary Dx); | | | | [phone] | | Neck pain, | | | | | | bilateral; Chronic | | | | | | low back pain | | | | | | without sciatica, | | | | | | unspecified back | | | | | | pain laterality; | | | | | | Intractable migraine | | | | | | with aura without | | | | | | status migrainosus; | | | | | | Dizziness | +--------+---------+ + + + Social [...] + | Tobacco Cessation: Ready to Quit: Yes; Counseling Given: YesComments: 05/26/16: Currently | | using Chantix, unable to tolerate medi cation,, will f/u with PCP | + + + + [...] + + + | Blood Pressure | 110/64 | 06/20/2019 8:47 AM | | | | | PST | | + + + + + | Pulse | 71 | 06/20/2019 8:47 AM | | | | | PST | | + + + + + | Temperature | - | - | | + + + + + | Respiratory Rate | 20 | 06/20/2019 8:47 AM | | | | | PST | | + + + + + | Oxygen Saturation | 93% | 06/20/2019 8:47 AM | | | | | PST | | + + + + + | Inhaled Oxygen | - | - | | | Concentration | | | | + + + + + | Weight | 103.9 kg (229 lb) | 06/20/2019 8:47 AM | | | | | PST | | + + + + + | Height | 165.1 cm (5' 5") | 06/20/2019 8:47 AM | | | | | PST | | + + + + + | Body Mass Index | 38.11 | 06/20/2019 8:47 AM | | | [...] of this encounter Patient Instructions Patient Instructions Jimbo Samayoa MD - 06/20/2019 9:00 AM PSTFormatting of this note mi ght be different from the original. Patient Instructions [facility] Neurology Clinic Dr. Jimbo Samayoa, Neurologist Date:06/20/2019 Name:Kait Sweeney Pako :..1970 Please schedule next follow up appt with Theo in 4-5 months for Migraine, intractable, With aura, non status migranous Diabetic polyneuropathy Gait disorder Chronic pian syndrome Cervical and lumbosacral spine strain due to multilevel degenerative spine disease Hx Bipolar disorder Hx amphetamines abuse, abstinent for > 5 yrs Hx rheumatoid Arthritis, on Imuran You have the following tests/procedures ordered: Orders Placed This Encounter Procedures MRI Brain w wo Contrast BOTOX INJECTION PAIN CLINIC PROCEDURE Treatment Option- massage, Acupuncture, Over the counter heat patches (icy hot, thermacare, salonpas) , over the counter creams (aspercream, bengay cream, emu oi l), Relaxation therapy, Water therapy, Cortisone shots, Toradol Injections Suggest reading newspapers. magazines, perform word find exercises such as cross word puzz le, and scrabble, other puzzle games like Agora Mobileu, Goodreadsng. Play computer/mobile applications such as MENA360 and [employer] Depot GAMES [employer] and [employer] for neuropathic pain Schedule for Botox injection on June 29 @ 8 am for headache prophylaxis toradol 60 mg IM for intractable neck and low back pain , pain scale 6-7/10 Can schedule for trigger point injection to her neck in one month after Botox injection if neck pian persists Advised to use rolling walker and/or cane for ambulation Any Questions please call MARTHA Matthew or Dr. Samayoa at [facility] Neurology Clinic General Neck and Back Pain Both neck and back pain are usually caused by injury to the muscles or ligaments of the spi ne. Sometimes the disks that separate each bone of the spine may cause pain by pressing on a nearby nerve. Back and neck pain may appear after a sudden twisting or bending force (such as in a car accident), or sometimes after a simple awkward movement. In either case, muscle spasm is often present and adds to the pain. Acute neck and back pain usually gets better in 1 to 2 weeks. Pain related to disk disease, arthritis in the spinal joints or spinal stenosis (narrowing of the spinal canal) can becom e chronic and last for months or years. Back and neck pain are common problems. Most people feel better in 1 or 2 weeks, and most o f the rest in 1 to 2 months. Most people can remain active. People have anddescribe pain differently. Pain can be sharp, stabbing, shooting, aching, cramping, or burning Movement, standing, bending, lifting, sitting, or walking may worsen the pain Pain can be localized to one spot or area, or it can be more generalized Pain can spread or radiate upwards, downwards, to the front, or go down your arms Muscle spasm may occur. Most of the time mechanical problems with the muscles or spine cause the pain. it is usuall y caused by an injury, whether known or not, to the muscles or ligaments. While illnesses ca n cause back pain, it is usually not caused by a serious illness. Pain is usually related to physical activity, whether sports, exercise, work, or normal activity. Sometimes it can occ ur without an identifiable cause. This can happen simply by stretching or moving wrong, with out noting pain at the time. Other causes include: Overexertion, lifting, pushing, pulling incorrectly or too aggressively. Sudden twisting, bending or stretching from an accident (car or fall), or accidental mov ement. Poor posture Poor conditioning, lack of regular exercise Spinal disc disease or arthritis Stress , or illness like appendicitis, bladder or kidney infection, pelvic infections Home care Forneck pain:Use a comfortable pillow that supports the head and keeps the spine in a neutral position. The position of the head should not be tilted forward or backward. When in bed, try to find a position of comfort. A firm mattress is best. Try lying flat on your back with pillows under your knees. You can also try lying on your side with your kn ees bent up towards your chest and a pillow between your knees. At first, do not try to stretch out the sore spots. If there is a strain, it is not like the good soreness you get after exercising without an injury. In this case, stretching may make it worse. Don't sit for long periods, as inlong car rides orother travel. This puts more stres s on the lower back than standing or walking. During the first 24 to 72 hours after an injury, apply an ice pack to the painful area f or 20 minutes and then remove it for 20 minutes over a period of 60 to 90 minutes or several times a day. You can alternate ice and heat therapies. Talk with your healthcare provider about the b est treatment for your back or neck pain. As a safety precaution, do not use a heating pad a t bedtime. Sleeping with a heating pad can lead to skin blanco or tissue damage. Therapeutic massage can help relax the back and neck muscles without stretching them. Be aware of safe lifting methods and do not lift anything over 15 pounds until all the p ain is gone. Medicines Talk to your healthcare provider before using medicine, especially if you have other medica l problems or are taking other medicines. You may use srgz-qzz-guwkizi medicine to control pain, unless another pain medicine was prescribed. If you have chronic conditions like diabetes, liver or kidney disease, stomach u lcers, gastrointestinal bleeding, or are taking blood thinner medicines. Be careful if you are given pain medicines, narcotics, or medicine for muscle spasm. The y can cause drowsiness, and can affect your coordination, reflexes, and judgment. Do not dri ve or operate heavy machinery. Follow-up care Follow up with your healthcare provider, or as advised. Physical therapy or further tests m ay be needed. If X-rays were taken, you will be notified of any new findings that may affect your care. Call 911 Call 911 if any of the following occur: Trouble breathing Confusion Very drowsy or trouble awakening Fainting or loss of consciousness Rapid or very slow heart rate Loss of bowel or bladder control When to seek medical advice Call your healthcare provider right away if any of these occur: Pain becomes worse or spreads into your arms or legs Weakness, numbness or pain in one or both arms or legs Numbness in the groin area Difficulty walking Fever of 100.4F (38C) or higher, or as directed by your healthcare provider Date Last Reviewed: 10/18/201519997295-5988 [employer] [address] [place] [address]. All righ ts reserved. This information is not intended as a substitute for professional medical care. Always follow your healthcare professional's instructions. Back Basics: A Healthy Spine A healthy spine supports the body while letting it move freely. It does this with the help of three natural curves. Strong, flexible muscles help, too. They support the spine by keepi ng its curves properly aligned. The disks that cushion the bones of your spine also play a r ole in back fitness. Three natural curves The spine is made of bones (vertebrae) and pads of soft tissue (disks). These parts are arr anged in three curves: cervical, thoracic, and lumbar. When properly aligned, these curves k eep your body balanced. They also support your body when you move. By distributing your weig ht throughout your spine, the curves make back injuries less likely. Strong, flexible muscles Strong, flexible back muscles help support the three curves of the spine. They do so by hol ding the vertebrae and disks in proper alignment. Strong, flexible abdominal, hip, and leg m uscles also reduce strain on the back. The lumbar curve The lumbar curve is the hardest-working part of the spine. It carries more weight and moves the most. Aligning this curve helps prevent damage to vertebrae, disks, and other parts of the spine. Cushioning disks Disks are the soft pads of tissue between the vertebrae. The disks absorb shock caused by m ovement. Each disk has a spongy center (nucleus) and a tougher outer ring (annulus). Movemen t within the nucleus allows the vertebrae to rock back and forth on the disks. This provides the flexibility needed to bend and move. Date Last Reviewed: 08/17/201719999200-3630 [employer] [address] [place] [address]. All righ ts reserved. This information is not intended as a substitute for professional medical care. Always follow your healthcare professional's instructions. Relieving Back Pain Back pain is a common problem. You can strain back muscles by lifting too much weight or ju st by moving the wrong way. Back strain can be uncomfortable, even painful. And it can take weeks or monthsto improve. To help yourself feel better and prevent future back strains, t ry these tips. Important: Don't give aspirin to children or teens without first discussing it with your ild's healthcare provider. Ice Ice reduces muscle pain and swelling. It helps most during the first 24 to 48 hours after a n injury. Wrap an ice pack or a bag of frozen peas in a thin towel. Never put ice directly on your skin. Place the ice where your back hurts the most. Don t ice for more than 20 minutes at a time. You can use ice several times a day. Medicines Sbjk-ofd-xglkpok pain relieversincludeacetaminophen and anti-inflammatory medicines, wh ich includes aspirin, naproxen,or ibuprofen. They can help ease discomfort. Some also redu ce swelling. Tell your healthcare provider about any medicines you are already taking. Take medicines only as directed. Manipulation and massage Having manipulation by an osteopathic doctor or chiropractor may be helpful. Getting a mass age also may help. Heat After the first 48 hours, heat can relax sore muscles and improve blood flow. Try a warm bath or shower. Or use a heating pad set on low. To prevent a burn, keep a cl oth between you and the heating pad. Don t use a heating pad for more than 15 minutes at a time. Never sleep on a heating p ad. Date Last Reviewed: 09/17/201719996869-0708 [employer] [address] [place] [address]. All righ ts reserved. This information is [...] acupuncture, massage, and others. Date Last Reviewed: 03/19/201719991349-6719 [employer] [address] [place] [address], [place] [address]. All righ ts reserved. This information is [...] massage, and other methods. Date Last Reviewed: 04/19/201719991433-1399 [employer] [address] [place] [address], [place] [address]. All [facility] ts reserved. This information is not intended as a substitute for professional medical care. Always follow your healthcare professional's instructions. documented in this encounter Progress Notes Tiff Sparks RN - 06/20/2019 9:00 AM PSTToradol injection given 60 mg IM, no adverse re actions noted, per pt has had medication before. Electronically signed by: Tiff Sparks RN 06/20/2019 10:21 AM im, Jimbo Box MD - 06/20/2019 9:00 AM PSTFormatt ing of this note might be different from the original. Patient: Kait Min Medical Record: [id number] Date of Services: 06/20/2019 Referring Doctor: Juanito Avery Chief Complaint: Chronic pain syndrome History of Present Illness: Miss Min was a 49-year-old right-handed lady, seen for neurologic evaluation, treated for chronic pain syndrome, experiencing chronic, persistent, cervical and lumbosacral spine str ain due to multilevel degenerative spine disease, worse in her neck. In addition, she also is having history of migraine headaches, with aura, intractable, non-status migrainous, with her last Botox injection given March 2019 with relief of your migraines decreasing to at least 1 2 times per week and will repeat her Botox injection in June 30, 2019 improve he r migraine phenomenon. She has a pain scale today of her possibly 6-7/10 for neck and low back will be given Torad ol 60 mg IM stat dose. In addition, patient's is complaining of intermittent dizziness with unsteady gait we'll pe rform an MRI the brain with or without contrast to rule out CVA or brainstem dysfunction wit h significant stroke risk factors of hypertension, diabetes, and age. I advised patient to start aspirin 81 mg daily for stroke prophylaxis. She will occasionally experience transien t confusional state though claims this has not occurred for the Past 4- 5 months and feelin g better. Advised the patient to perform PT/OT, but refuses at this time. She has other significant past medical history of amphetamine abuse, absent for over 5 year s, hypothyroidism, obstructive sleep apnea, COPD, and rheumatoid arthritis. Review of Systems: Denies earache, nasal catarrh, diplopia, blurring of vision, dysphagia, odynophagia, sore throat, neck masses, hearing loss, chest pain, palpitations, shortness of breath, cough, hemoptysis, abdominal pain, diarrhea, constipation, bowel or bladder dysfunct ion, hematuria, dysuria, lymphadenopathies, echhymoses, rashes, and homicidal or suicidal i deations. Current Outpatient Medications Medication Sig Dispense Refill albuterol (PROAIR HFA) 90 mcg/puff inhaler Inhale 2 puffs into the lungs every 4 hours as needed for Wheezing or Shortness of Breath. 1 Inhaler 11 AMITIZA 24 MCG capsule Take 24 mcg by mouth Daily. aspirin 81 mg EC tablet Take 81 mg by mouth Daily. atorvaSTATin (LIPITOR) 20 mg tablet Take 20 mg by mouth nightly. azaTHIOprine (IMURAN) 50 mg tablet Take 50-100 tablets by mouth (see instruction). Take 50 mg in the morning and 100 mg nightly BANOPHEN 25 MG capsule Take 25 mg by mouth nightly as needed. buprenorphine (BUTRANS) 20 mcg/hr patch Place 1 patch onto the skin Once a week. busPIRone (BUSPAR) 10 MG tablet Take 10 mg by mouth every morning. cloNIDine (CATAPRES) 0.3 mg/[address] 1 patch onto the skin Once a week. Continuous Blood Gluc Sensor (Knock Knock HUAN 14 DAY SENSOR) MISC diclofenac (VOLTAREN) 1% GEL DOK 100 MG capsule DULoxetine (CYMBALTA) [address] capsule Take 30 mg by mouth Daily. ergocalciferol (VITAMIN D-2) 50,000 units capsule Take 50,000 Units by mouth Once a wee k. insulin glargine (LANTUS) 100 units/mL injection (vial) Inject 10 Units under the skin. insulin lispro (HUMALOG KWIKPEN) 100 units/mL injection (pen) Humalog KwikPen (U-100) I nsulin 100 unit/mL subcutaneous Inject by SQ 6 units plus sliding scale ac, and hs. 0-150 0 units, 151-200 2 units, 201-2 50 4 units, 251-300 6 units, 301-350 8 units, 351-400 10 units, 400+ 15 units and notify doc tor. LANTUS SOLOSTAR 100 UNIT/ML injection (pen) Inject 10 Units under the skin nightly. levothyroxine (SYNTHROID) 300 mcg tablet Take 300 mcg by mouth every morning (before br eakfast). magnesium oxide (MAG-OX) 400 mg tablet Take 1 tablet by mouth Daily. metFORMIN (GLUCOPHAGE) 500 mg tablet Take 500 mg by mouth 2 times daily (with breakfast & dinner). metoprolol succinate (TOPROL-XL) 50 mg 24 hr tablet Take 1 tablet by mouth Daily. 30 ta blet 2 omeprazole (PRILOSEC) 20 mg capsule ondansetron (ZOFRAN) 4 mg tablet pregabalin (LYRICA) 150 MG capsule Take 150-300 mg by mouth (see instruction). Take 150 mg in the morning and 300 mg in the evening Respiratory Therapy Supplies [facility] Portable oxygen concentrator to provide O2 at 1 l/m c ontinuous via nasal cannula. Duration: Lifetime Dx: COPD J44.9 1 each 0 SITagliptin (JANUVIA) 100 mg tablet Take 100 mg by mouth. sulfaSALAzine (AZULFIDINE) 500 MG EC tablet TAKE TWO TABLETS BY MOUTH TWICE A DAY tiotropium (SPIRIVA) 18 mcg inhalation capsule Inhale 18 mcg into the lungs Daily. torsemide (DEMADEX) 20 mg tablet Take 20 mg by mouth Daily. traZODone (DESYREL) 100 mg tablet Take 300 mg by mouth nightly. verapamil (VERELAN) 240 mg SR capsule vortioxetine (TRINTELLIX) 10 mg tablet Take 10 mg by mouth every morning. ziprasidone (GEODON) 60 MG capsule Take 60 mg by mouth nightly. Current Facility-Administered Medications Medication Dose Route Frequency Provider Last Rate Last Dose ketorolac (TORADOL) injection 60 mg 60 mg Intramuscular Once Jimbo Samayoa MD Allergies Allergen Reactions Adhesive & Tape Other (See Comments) Other reaction(s): Other (See Comments) Skin sensitivity Skin sensitivity Azithromycin Hives Lamotrigine Neurological Examination: Vitals: 06/20/19 0847 BP: 110/64 Pulse: 71 Resp: 20 PainSc: 8 PainLoc: Generalized MENTAL STATUS: The patient is awake, alert, and oriented to time, place, and person. [facility] is fluent. Memory, attention, comprehension, and general fund of knowledge are intact. CRANIAL NERVES: Funduscopy revealed distinct disc margins. There are no exudates or hemor rhages noted. Pupils are 3-4 mm, equal and reactive to light and accommodation. Extraocular muscle movements are intact. There are no visual field cuts. There is no nystagmus. There is no facial asymmetry. Facial sensation is intact. Palate elevates symmetrically. Streng th in the trapezius and sternocleidomastoid muscles is normal. Tongue is midline on protrusi on. MOTOR EXAMINATION: Strength is 5/5 throughout. Tone is normal. SENSORY EXAMINATION: impaired proprioception and vibratory sense at the toes with decrease d light touch in a stocking distribution up to and is bilaterally DEEP TENDON REFLEXES: absent throughout PLANTAR RESPONSES: Downgoing bilaterally GAIT: wide-based stance, unable to tandem gait, Romberg was negative CEREBELLAR EXAMINATION: There is no dysmetria on qehaxx-cr-hovp test. MISCELLANEOUS EXAM: Well Kept, well nourished, Atraumatic, no evidence of frontal or maxil delfina sinus tenderness, no neck masses, tenderness in the paraspinal cervical spine, trapeziu s, and suprascapular muscles with the decrease with decreased range of motion space on flexi on and extension at 5-10, tenderness in the paraspinal lumbosacral spine with increased pa in upon flexion and extension at 5-10, abdomen is soft and nontender, extremities equally palpable pulses Clinical Impression: Migraine, intractable, With aura, non status migranous Diabetic polyneuropathy Gait disorder Chronic pian syndrome Cervical and lumbosacral spine strain due to multilevel degenerative spine disease Hx Bipolar disorder Hx amphetamines abuse, abstinent for > 5 yrs Hx rheumatoid Arthritis, on Imuran Plan: Please schedule next follow up appt with Theo in 4-5 months for Migraine, intractable, With aura, non status migranous Diabetic polyneuropathy Gait disorder Chronic pian syndrome Cervical and lumbosacral spine strain due to multilevel degenerative spine disease Hx Bipolar disorder Hx amphetamines abuse, abstinent for > 5 yrs Hx rheumatoid Arthritis, on Imuran You have the following tests/procedures ordered: Orders Placed This Encounter Procedures MRI Brain w wo Contrast BOTOX INJECTION PAIN CLINIC PROCEDURE Treatment Option- massage, Acupuncture, Over the counter heat patches (icy hot, thermacare, salonpas) , over the counter creams (aspercream, bengay cream, emu oi l), Relaxation therapy, Water therapy, Cortisone shots, Toradol Injections Suggest reading newspapers. magazines, perform word find exercises such as cross word puzz le, and scrabble, other puzzle games like [employer], Mahjong. Play computer/mobile applications such as MENA360 and [employer] GAMES [employer] and cymbalta for neuropathic pain Schedule for Botox injection on June 29 @ 8 am for headache prophylaxis toradol 60 mg IM for intractable neck and low back pain , pain scale 6-7/10 Can schedule for trigger point injection to her neck in one month after Botox injection if neck pian persists Advised to use rolling walker and/or cane for ambulation Advised to start taking aspirin 81 mg daily for stroke prophylaxis given his stroke risk fa ctors of hypertension, diabetes, and age. Any Questions please call MARTHA Matthew or Dr. Samayoa at [facility] Neurology Clinic Jimbo Samayoa MD06/20/201910:01 AM Electronically signed NOTE: Part of this report was transcribed using voice recognition software. Every effort was made to ensure accuracy. However, inadvertent computerize resolution expert errors may be present documented in this enc ounter Plan of Treatment +--------+---------+ + + + [...] | | | | [address] [place], | | | | | | [place] [address] | | | | | | [phone] | | | | | | | | +--------+---------+ + + + + +---------+--------+ + + | Name | Type | Priori | Associated Diagnoses | Order Schedule | | | | ty | | | + +---------+--------+ + + | MRI Brain w wo | Imaging | Routin | Dizziness | Expected: | | Contrast | | e | | 06/20/2019, Expires: | | | | | | 06/19/2020 | + +---------+--------+ + + documented as of this encounter Results BOTOX INJECTION PAIN CLINIC PROCEDURE (07/06/2019 3:45 PM PDT) + + + | Narrative | Performed At | + + + | Jimbo Samayoa MD 07/06/2019 4:08 PM Kait Min | | | 07/06/2019 PROCEDURE: BOTOX INDICATION: Intractable migraine with | | | aura, non-status migrainous Kait Minwaaugusto a. 49 | | | y.o.year-old femalewho receive a Botox injection today. I used a | | | total of 200 units of Botox type A. Each of the Botox type A | | | bottles, were diluted with 4 cc of preservative-free normal saline. | | | Each of the following muscles were injected: Bilateral paraspinal | | | C2-3, C 3 | | | | [...] | | Sincerely, Jimbo Samayoa M.D. Neurologist [phone] | | | Electronically signed | | + + + documented in this encounter Visit Diagnoses + + | Diagnosis | + + | Diabetic polyneuropathy associated with type 2 diabetes mellitus (HCC) - Primary | + + | Neck pain, bilateral Cervicalgia | + + | Chronic low back pain without sciatica, unspecified back pain laterality | + + | Intractable migraine with aura without status migrainosus Migraine with aura, with | | intractable migraine, so stated, without mention of status migrainosus | + + | Dizziness Dizziness and giddiness | + + documented in this encounter Administered Medications + +--------+ +-------+------+ + | Medication Order | MAR | Action | Dose | Rate | Site | | | Action | Date | | | | + +--------+ +-------+------+ + | ketorolac (TORADOL) injection | Given | 06/20/19 | 60 mg | | Ventrogl | | 60 mg 60 mg, Intramuscular, | | 20 10:15 | | | uteal-Le | | ONCE, 06/20/19 at 1015, For 1 | | AM PST | | | ft | | dose | | | | | | + +--------+ +-------+------+ + +---+---+ | | | +---+---+ documented in this encounter
--- OUTSIDE RECORDS SUMMARY | ~2019-09-02 | XMS | Encounter Summary ---
Demographics + + + | Address | [address] | | | [place] [address] | + + + | Home Phone [...] | | | | | [place] [address] | | + + + + + Care Team Providers + +------+ + | Care Lab Head Name | Role | Phone | + +------+ + PCP | Unavailable | + +------+ + Encounter Details +--------+ + + + + | Date | Type | Department | Care Team | Description | +--------+ + + + + | 10/28/ | Respiratory | | Other, Faculty | | | 2006 | Therapy | | [phone] | | +--------+ + + + + [...] [facility] | [address] | [place], [place] | | | DIAGNOSTICS - | [address] | [address] | | | PULMONARY FUNCTION | | | | + + + + + documented in this encounter Visit Diagnoses Not on filedocumented in this encounter"
--- OUTSIDE RECORDS SUMMARY | ~2019-09-02 | XMS | Encounter Summary ---
Demographics + + + | Address | [address] | | | [place] [address] | + + + | Home Phone [...] | | | | | [place] [address] | | + + + + + | Robson Min | ECON | Unknown | | + + + + + | Isabella Whitehead | ECON | Unknown | | + + + + + | Seven Neff | ECON | Unknown | | + + + + + Care Team Providers + +------+ + | Care Coding Machine Operator Name | Role | Phone [...] [address] | | | | | [place] [address] | | | | | | [phone] | | | +--------+ + + + [...] [place] | | | | | | [address] | | | | | | | | +--------+---------+ + + + | 11/05/ | Office | Neurology | Tariq, | | | 2019 | Visit | | [address] | | | | | | [address] [place], | | | | | | [place] [address] | | | | | | [phone] | | | | | | | | +--------+---------+ + + + documented as of this encounter Visit Diagnoses Not on filedocumented in this encounter"
--- OUTSIDE RECORDS SUMMARY | ~2019-09-02 | XMS | Encounter Summary ---
Demographics + + + | Address | [address] | | | [place] [address] | + + + | Home Phone [...] Author + + + | Author | [facility] | + + + | Organization | [facility] | + + + | Address | Unknown | + + + | Phone | Unavailable | + + + Support + + + + + | Name | Relationship | Address | Phone | + + + + + | Scot Johnson | ECON | [address] | | | | | [place] [address] | | + + + + + Care Team Providers + +------+ + | Care Electric Switch Repairer Name | Role | Phone | [...] | | , [address] | [place] [address] | [place], [place] | | | | | [place] | Phone: | [address] | | | | | OFFICE/OUTPT | [phone] | Phone: | | | | | | Fax: | [phone] | | | | | VISIT,EST,LE | [phone] | Fax: | | | | | VL III 1 | | [phone] | | | | | consult, 3 [...] 2007 | Visit | Medical at [facility] [address] | MD [address] | Pyoderma, | | | | [address] | [place], [place] | Unspecified | | | | Mailcode: [facility] | [address] | | | | | [place] [facility] | [phone] | | | | | and Healing, | | | | | | Building | | | | | | Floor [place], [place] | | | | | | [address] | | | | | | [phone] | | | +--------+---------+ + + + [...] agree with the documentation. Zayda Ordaz M.D. Inspector Automatic Typewriter of Dermatology. Sandy Durbin, Azucena - 008 [...] Jacobson MD Resident PGY-2, Department of Dermatology [facility] [place] documented in this encoun ter Plan of [...] Lab) | | | | | | [facility] | | | | | | [address] | | | | [address] | | | | | | [place], [place] | | | | | | [id number]: Test | | | | | | performed at [place] | | | | | | [facility] | | | | | | Laboratory. | | | | + + + + + + + + | Specimen | + + | Leg - Left | + + + + + + + | Performing | Address | City/State/Zipcode | Phone Number | | Organization | | | | + + + + + | [facility] | [address] | [place] [address] | | | LAB-MICRO | | | | + + + + + documented in this encounter Visit Diagnoses + + | Diagnosis | + + | Ulcer - Primary Chronic ulcer of unspecified site | + + | Pyoderma, unspecified | + + documented in this encounter"
--- OUTSIDE RECORDS SUMMARY | ~2019-09-02 | XMS | Encounter Summary ---
Demographics + + + | Address | [address] | | | [place] [address] | + + + | Home Phone [...] | | | | | [place] [address] | | + + + + + | Robson Min | ECON | Unknown | | + + + + + | Isabella Whitehead | ECON | Unknown | | + + + + + | Seven Neff | ECON | Unknown | | + + + + + Care Team Providers + +------+ + | Care Cvir Tech Name | Role | Phone | + +------+ + | Ora Slater | PCP | | + +------+ + Encounter Details +--------+ + + + + | Date | Type | Department | Care Team | Description | +--------+ + + + + | 09/22/ | Hospital | [facility] | Neno Walker | Hypoventilation | | 2019 | Encounter | MED CTR PULMONARY | MD Srinivas [address] | | | | | FUNCTION [address] | [facility] | | | | | [place], | [place] [address] | | | | | [place] [address] | [phone] | | | | | [phone] | | | +--------+ + + + [...] [place] | | | | | | [address] | | | | | | | | +--------+---------+ + + + | 11/05/ | Office | Neurology | Tariq, | | | 2019 | Visit | | [address]A [address] | | | | | | [address] [place], | | | | | | [place] [address] | | | | | | [phone] | | | | | | | [...] [place]. | [address] | [place] | [phone] | | [facility] | | [address] | | | - LABORATORY | | | | + + + + + documented in this encounter Visit Diagnoses + + | Diagnosis | + + | Hypoventilation Other dyspnea and respiratory abnormality | + + documented in this encounter"
--- OUTSIDE RECORDS SUMMARY | ~2019-09-02 | XMS | Encounter Summary ---
Demographics + + + | Address | [address] | | | [place] [address] | + + + | Home Phone [...] | | | | | [place] [address] | | + + + + + | Robson Min | ECON | Unknown | | + + + + + | Isabella Whitehead | ECON | Unknown | | + + + + + | Seven Neff | ECON | Unknown | | + + + + + Care Team Providers + +------+ + | Care Clothing Patternmaker Name | Role | Phone | + [...] [address] | | | | | [place], | [place] | | | | | [place] [address] | [address] | | | | | [phone] | | | +--------+ + + + [...] [place] | | | | | | [address] | | | | | | | | +--------+---------+ + + + | 11/05/ | Office | Neurology | Tariq, | | | 2019 | Visit | | [address]A [address] | | | | | | [address] [place], | | | | | | [place] [address] | | | | | | [phone] | | | | | | | | +--------+---------+ + + + documented as of this encounter Visit Diagnoses Not on filedocumented in this encounter"
--- OUTSIDE RECORDS SUMMARY | ~2019-09-02 | XMS | Encounter Summary ---
Demographics + + + | Address | [address] | | | [place] [address] | + + + | Home Phone [...] | | | | | [place] [address] | | + + + + + Care Team Providers + +------+ + | Care Youth Probation Officer Name | Role | Phone | + +------+ + PCP | Unavailable | + +------+ + Encounter Details +--------+ + + + + | Date | Type | Department | Care Team | Description | +--------+ + + + + | 10/29/ | Respiratory | | Other, Faculty | | | 2006 | Therapy | | [phone] | | +--------+ + + + + [...] [facility] | [address] | [place], [place] | | | DIAGNOSTICS - | [address] | [address] | | | PULMONARY FUNCTION | | | | + + + + + documented in this encounter Visit Diagnoses Not on filedocumented in this encounter"
--- OUTSIDE RECORDS SUMMARY | ~2019-09-02 | XMS | Encounter Summary ---
Demographics + + + | Address | [address] | | | [place] [address] | + + + | Home Phone [...] | | | | | [place] [address] | | + + + + + Care Team Providers + +------+ + | Care Psychiatric Assistant Name | Role | Phone | + +------+ + PCP | Unavailable | + +------+ + Encounter Details +--------+ + + + + | Date | Type | Department | Care Team | Description | +--------+ + + + + | 11/01/ | Respiratory | | Other, Faculty | | | 2006 | Therapy | | [phone] | | +--------+ + + + + [...] | | | Y | Lisa Wahl, NURSE PARALEGAL | | | | + + + [...] [facility] | [address] | [place], [place] | | | DIAGNOSTICS - | [address] | [address] | | | PULMONARY FUNCTION | | | | + + + + + documented in this encounter Visit Diagnoses Not on filedocumented in this encounter"
--- OUTSIDE RECORDS SUMMARY | ~2019-09-02 | XMS | Encounter Summary ---
Demographics + + + | Address | [address] | | | [place] [address] | + + + | Home Phone [...] | | | | | [place] [address] | | + + + + + | Robson Min | ECON | Unknown | | + + + + + | Isabella Whitehead | ECON | Unknown | | + + + + + | Seven Neff | ECON | Unknown | | + + + + + Care Team Providers + +------+ + | Care Major Sales Associate Name | Role | Phone | + +------+ + | Ora Slater | PCP | | + +------+ + Encounter Details +--------+ + + + + | Date | Type | Department | Care Team | Description | +--------+ + + + + | 09/08/ | [facility]ati | [facility] | Neno Walker | | | 2019 | on | SLEEP DISORDER [address] | MD Srinivas [address] | | | | | [address] [place] | [address] [place] | | | | | [place] [address] | [place] [address] | | | | | [phone] | [phone] | | | | | | | [...] [place] | | | | | | [address] | | | | | | | | +--------+---------+ + + + | 11/05/ | Office | Neurology | Tariq, | | | 2019 | Visit | | [address]A [address]as [address] | | | | | | [address] [place], | | | | | | [place] [address] | | | | | | [phone] | | | | | | | | +--------+---------+ + + + documented as of this encounter Visit Diagnoses + + | Diagnosis | + + | Hypoventilation - Primary Other dyspnea and respiratory abnormality | + + documented in this encounter"
--- OUTSIDE RECORDS SUMMARY | ~2019-09-02 | XMS | Encounter Summary ---
Demographics + + + | Address | [address] | | | [place] [address] | + + + | Home Phone | | + + + | Preferred Language | Unknown | + + + | Marital Status | Single | + + + | Episcopal Affiliation | CHR | + + + [...] | | | | | [place] [address] | | + + + + + Care Team Providers + +------+ + | Care Histopathologist Name | Role | Phone | + +------+ + PCP | Unavailable | + +------+ + Encounter Details +--------+ + + + + | Date | Type | Department | Care Team | Description | +--------+ + + + + | 11/03/ | Respiratory | | Other, Faculty | | | 2006 | Therapy | | [phone] | | +--------+ + + + + [...] [facility] | [address] | [place], [place] | | | DIAGNOSTICS - | [address] | [address] | | | PULMONARY FUNCTION | | | | + + + + + documented in this encounter Visit Diagnoses Not on filedocumented in this encounter"
--- OUTSIDE RECORDS SUMMARY | ~2019-09-02 | XMS | Encounter Summary ---
Demographics + + + | Address | [address] | | | [place] [address] | + + + | Home Phone [...] | | | | | [place] [address] | | + + + + + | Robson Min | ECON | Unknown | | + + + + + | Isabella Whitehead | ECON | Unknown | | + + + + + | Seven Neff | ECON | Unknown | | + + + + + Care Team Providers + +------+ + | Care Warehouse Checker Name | Role | Phone | + +------+ + | Bart Ba DO | PCP | | + +------+ + Encounter Details +--------+ + + + + | Date | Type | Department | Care Team | Description | +--------+ + + + + | 11/19/ | Hospital | [facility] | Navdeep Grande, | COPD, mild (HCC) | | 2018 | Encounter | MED CTR PULMONARY | MD [address] | | | | | FUNCTION [address] | [place] | | | | | [place], | [address] | | | | | [place] [address] | | | | | | [phone] | | | +--------+ + + + [...] [place] | | | | | | [address] | | | | | | | | +--------+---------+ + + + | 11/05/ | Office | Neurology | Tariq, | | | 2019 | Visit | | Karyanne, ACCESSORIES REPAIRER [address] | | | | | | [address] [facility], | | | | | | [place] [address] | | | | | | [phone] | | | | | | | [...] signed by: Navdeep Grande MD 11/19/2017 12:24[facility] | | | [facility] | | |physiology. Lung volume testing [...] Grande MD 11/19/2017 12:24 | | |[facility] | | + + + documented in this encounter Visit Diagnoses + + | Diagnosis | + + | COPD, mild (HCC) Chronic airway obstruction, not elsewhere classified | + + documented in this encounter"
--- OUTSIDE RECORDS SUMMARY | ~2019-09-02 | XMS | Encounter Summary ---
Demographics + + + | Address | [address] | | | [place] [address] | + + + | Home Phone [...] | | | | | [place] [address] | | + + + + + | Robson Min | ECON | Unknown | | + + + + + | Isabella Whitehead | ECON | Unknown | | + + + + + | Seven Neff | ECON | Unknown | | + + + + + Care Team Providers + +------+ + | Care Liquefaction Plant Operator Name | Role | Phone [...] 2015 | | PULMONARY [address] | A, RN | hypoventilation; | | | | [place], | | Hypoxemia | | | | [place] [address] | | | | | | [phone] | | | +--------+ + + + [...] [place] | | | | | | [phone] | | | | | | | | +--------+---------+ + + + | 11/05/ | Office | Neurology | Tariq, | | | 2019 | Visit | | [address]A [address]as [address] | | | | | | [address] [place], | | | | | | [place] [address] | | | | | | [phone] | | | | | | | | +--------+---------+ + + + documented as of this encounter Visit Diagnoses + + | Diagnosis | + + | Alveolar hypoventilation Other dyspnea and respiratory abnormality | + + | Hypoxemia | + + documented in this encounter"
--- OUTSIDE RECORDS SUMMARY | ~2019-09-02 | XMS | Encounter Summary ---
Demographics + + + | Address | [address] | | | [place] [address] | + + + | Home Phone [...] | | | | | [place] [address] | | + + + + + | Robson Min | ECON | Unknown | | + + + + + | Isabella Whitehead | ECON | Unknown | | + + + + + | Seven Neff | ECON | Unknown | | + + + + + Care Team Providers + +------+ + | Care Farm Reporter Name | Role | Phone | + [...] | MED CTR EXTERNAL | MD Shira [address] | | | | | IMAGING [address] | [address] | | | | | [address] | [place] [address] | | | | | [place] [address] | | | | | | [phone] | | | +--------+ + + + [...] [place] | | | | | | [address] | | | | | | | | +--------+---------+ + + + | 11/05/ | Office | Neurology | Tariq, | | | 2019 | Visit | | [address]A [address] | | | | | | [address] [place], | | | | | | [place] [address] | | | | | | [phone] | | | | | | | [...]
--- OUTSIDE RECORDS SUMMARY | ~2019-09-02 | XMS | Encounter Summary ---
Demographics + + + | Address | [address] | | | [place] [address] | + + + | Home Phone [...] | | | | | [place] [address] | | + + + + + | Robson Min | ECON | Unknown | | + + + + + | Isabella Whitehead | ECON | Unknown | | + + + + + | Seven Neff | ECON | Unknown | | + + + + + Care Team Providers + +------+ + | Care Water Superintendent Name | Role | Phone | [...] Medicine | JESUSITA | Neno [place]ito | [place] [address] | | | Required | | (obstructive | MD Srinivas [address] | [place] | | | | | sleep | [place] | [place], | | | | | apnea) | [facility] | [place] [address] | | | | | Nocturnal | [place], [place] | Phone: | | | | | oxygen | [address] | [phone] | | | | | desaturation | Phone: | Fax: | | | | | E66.2 | [phone] | [phone] | | | | | (ICD-10-CM) | Fax: | | | | | | - [phone] | [phone] | | | | | | (ICD-9-CM) [...] | | | | | | | [place] [facility] | | | | | | [...] Sleep | Diagnoses | Harjinder | [facility] | | | Services | Medicine | Alveolar | MD Navdeep | [facility] | | | Required | | hypoventilat | [address] | Disorder [address] | | | | | ion JESUS[place] and | [address] | [address] | | | | | COPD | [place], | [place], | | | | | overlap | [place] [address] | [place] [address] | | | | | syndrome | Phone: | Phone: | | | | | ([facility] | [phone] | [phone] | | | | | | Fax: | Fax: | | | | | | [phone] | [phone] | +--------+ + + + + + Encounter Details +--------+---------+ + + + | Date | Type | Department | Care Team | Description | +--------+---------+ + + + | 07/28/ | Office | [facility] [place] | Neno Walker | JESUSITA (obstructive | | 2019 | Visit | SLEEP DISORDER [address] | MD Srinivas [address] | sleep apnea) | | | | [address] [place] | [address] [place] | (Primary Dx); | | | | [place] [address] | [place] [address] | Obesity | | | | [phone] | [phone] | hypoventilation | | | | | [...] Insomnia Severity Index Insomnia Severity Index 21 Point Roberts Sleepiness Scale 1. Sitting and reading 3 [...] | | | | | | [place] | | | | | | [address] | | | | | | | | +--------+---------+ + + + | 11/05/ | Office | Neurology | Tariq, | | | 2019 | Visit | | AN[address]ELA [address] | | | | | | [address] [facility], | | | | | | [place] [address] | | | | | | [phone] | | | | | | | [...] + + +--------+ + + | * [facility] - | Outpatient | [...]
--- OUTSIDE RECORDS SUMMARY | ~2019-09-02 | XMS | Encounter Summary ---
Demographics + + + | Address | [address] | | | [place] [address] | + + + | Home Phone [...] | | | | | [place] [address] | | + + + + + | Robson Escobar | ECON | Unknown | | + + + + + | Isabella Whitehead | ECON | Unknown | | + + + + + | Seven Neff | ECON | Unknown | | + + + + + Care Team Providers + +------+ + | Care Footwear Sales Leader Name | Role | Phone | + +------+ + | Bart Ba DO | PCP | | + +------+ + Encounter Details +--------+ + + + + | Date | Type | Department | Care Team | Description | +--------+ + + + + | 03/21/ | Hospital | [facility] | Luis [place], | NSTEMI (non-ST | | 2013 - | Encounter | [facility] | MD [address] | elevated myocardial | | | | CARE FLOOR [address] | [place] [address] | infarction) ([facility]); | | 03/24/ | | [address] | [phone] | Current smoker; RA | | 2012 | | [place], [place] | | (rheumatoid | | | | [address] | | arthritis) ([facility]); | | | | [phone] | | ARF (acute renal | | | | | | failure) ([facility]); | | | | | | Bacterial pneumonia, | | | | | | unspecified; COPD | | | | | | exacerbation ([facility]); | | | | | | Elevated brain | | | | | | natriuretic peptide | | | | | | (BNP) level; | | | | | | Hypoxemia; Abnormal | | | | | | LFTs; Hyponatremia; | | | | | | Hyperkalemia; DM | | | | | | (diabetes mellitus) | | | | | | ([facility]); Tobacco | | | | | | abuse; Diabetes | | | | | | mellitus type II; | | | | | | Hyperlipidemia; | | | | | | Hypertension; | | | | | | Bipolar 2 disorder | | | | | | ([facility]) | +--------+ + + + + Social [...] Date of Service: 03/24/13 105 Status: Signed Fish Receiver: Arcadio Cobian MD (Physician) [facility] Service: Hospitalist Physician Discharge Summary Pt: Carline Escobar AGE/SEX: 42 y.o. female ROOM: [facility]4447-1 PCP: BART BA : 1970 Admit [...] and had elevated Trop[ with possible NSTE AZ and possible underlying PNA Bacterial pneumonia, unspecified [...] 1 tablet by mouth daily. Nebulizer (medical program specialist) Dispense and provide instruction as needed. 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 You may get these medications from any pharmacy. aspirin 81 MG EC tablet fluticasone-salmeterol 250-50 MCG/DOSE ipratropium-albuterol 0.5-2.5 mg/3mL levofloxacin 500 MG tablet Nebulizer (medical program specialist) Activity: activity as tolerated Diet: regular [...] | 0 | 10/08/19 | | | rcoxilskat-fktzrcy-w | every 6 hours as | | [...] 03/24/131552 Date of Service: 03/24/131552 Status: Signed Fish Receiver: Bernardo Avery RN (Registered Nurse) Discharge instructions reviewed with pt and family. IV removed, cannula intact. No complain s, concerns or questions at this time. Discharged to home/self care per private vehicle. BERNARDO AVERY RN oster Ayanna MSW - 03/24/2013 3:05 PM PST Case Management by EMA Fishman at 03/24/13 1505 Author: EMA Fishman Service: (none) Author Type: Polisher Balance Screwhead Filed: 03/24/13 1513 Date of Service: 03/24/13 1505 Status: Signed Fish Receiver: EMA Fishman (Polisher Balance Screwhead) 03/22/13 1100 Discharge Planning Evaluation Living Arrangements [...] this time. Community resources utilized / needed: [place] for home 02 Assistance in transportation: family [...] Notes by Crystal Dunaway RRT at 03/24/13 4086 Author: Crystal Dunaway RRT Service: (none) Author Type: Registered Respiratory Therap ist Filed: 03/24/13 1436 Date of Service: 03/24/13 1436 Status: Signed Fish Receiver: Crystal Dunaway RRT (Registered Respiratory Therapist) [facility] Department of Respiratory Chcf Oxygen Evaluation (Evaluation is valid for 48 [...] 03/24/13848 Date of Service: 03/24/13846 Status: Signed Fish Receiver: Vinny Strickland MD (Physician) Nuc images reviewed, they are normal. I think small troponin elevation was not due to an AZ, but to hypoxia from respiratory issu es. [...] 03/23/131907 Date of Service: 03/23/131852 Status: Signed Fish Receiver: Pedro Hester MD (Physician) PCP : BART [...] charting completed later after rounds. Dictation software, [employer], used which may contain error for similar [...] Date of Service: 03/23/13 1146 Status: Signed Fish Receiver: Arcadio Cobian MD (Physician) [facility] Service: Hospitalist Progress Note Pt: Carline Escobar AGE/SEX: 42 y.o. female ROOM: 44/4447-1 : 1970 PCP: BART BA ADMIT DATE: 03/21/2013 TODAY'S DATE: 03/23/2013 Hospital Day/Hospital Course: LOS: 2 days 42 YO F with PMHof HTN, DM2, RA came with SOB and and had elevated Trop[ with possible NSTE AZ and possible underlying PNA SUBJECTIVE: Patient seen [...] and had elevated Trop[ with possible NSTE AZ and possible underlying PNA NSTEMI (non-ST elevated myocardial infarction): Though Trop is slightly elevated but Doubt she had real AZ? I DW Dr. Strickland and will do [...] Date of Service: 03/23/13 0849 Status: Signed Fish Receiver: Vinny Strickland MD (Physician) No complaints. Mildly [...] Date of Service: 03/22/13 1306 Status: Signed Fish Receiver: Arcdaio Cobian MD (Physician) [facility] Service: Hospitalist Progress Note Pt: Carline Escobar AGE/SEX: 42 y.o. female ROOM: 44/4447-1 : 1970 PCP: BART BA ADMIT DATE: 03/21/2013 TODAY'S DATE: 03/22/2013 Hospital Day/Hospital Course: LOS: 1 day 42 YO F with PMHof HTN, DM2, RA came with SOB and and had elevated Trop[ with possible NSTE AZ and possible underlying PNA SUBJECTIVE: Patient seen [...] (03/22/13 1051) DISCONTD: sodium chloride Stopped (03/21/13 9623) PRN Medications acetaminophen, acetaminophen, dextrose, dextrose, dextrose, [...] and had elevated Trop[ with possible NSTE AZ and possible underlying PNA NSTEMI (non-ST elevated [...] Oxana Gamino RD Service: (none) Author Type: Engineering And Scientific Programmer Filed: 03/22/13 1037 Date of Service: 03/22/13 1025 Status: Signed Fish Receiver: Oxana Gamino RD (Engineering And Scientific Programmer) Elevated blood sugars, was 307 this am. [...] remain elevated. Oxana Gamino RD, CDE, Inpatient Engineering And Scientific Programmer 03/22/2013 10:37 AM onversion Transaction , Provider Unknown - 03/21/2013 11:16 PM PST Progress Notes by Loni Hameed RPH at 03/21/132315 Author: Loni Hameed RPH Service: (none) Author Type: Pharmacist Filed: 03/21/132315 Date of Service: 03/21/132315 Status: Signed Fish Receiver: Loni Hameed RPH (Pharmacist) Clinical Pharmacy Note: [...] [place] | | | | | | [address] | | | | | | | | +--------+---------+ + + + | 11/05/ | Office | Neurology | Tariq, | | | 2019 | Visit | | Theo, MULTIMEDIA SERVICES COORDINATOR [address] | | | | | | [address] [facility], | | | | | | [place] [address] | | | | | | [phone] | | | | | | | [...] | + + + | CARLINE ESCOBAR AZ MYOCARDIAL PERFUSION SPECT - STRESS AND REST [...] Conversion - 12/09/2018 8:13 PM PDT CARLINE ESCOBARAZ MYOCARDIAL PERFUSION | | SPECT - STRESS [...] | MD | | | INDICATIONS ACUTE AZ PNEUMONIA, COPD CONCLUSIONS | | | 1. [...] | posterior mitral valve leaflet. Tricuspid Valve: Vioc-vx-ooryttvx | | | tricuspid regurgitation present. Tricuspid [...] 72.21 ml D-E Excursion: 1.51 cm E-F [place]: | | | 0.07 m/s EPSS: 0.73 [...] TV A Amnjeet: 0.73 m/s TV Dec [place]: | | | 6.25 m/s2 TV Dec Time: 121.02 ms TV E Manjeet: 0.75 m/s TV E/A | | | Ratio: 1.03 Interior Design Director: ERASMO Authenticated by: Vinny | | | Marco A NEFF Report Date/Time: 03-22-2013 12:44:09 | | + + + + + | Procedure Note | + + | Demario, Rad Conversion - 12/09/2018 8:13 PM PDT Patient Name: Anupam ESCOBAR of | | : 1970 Performing Physician: Vinny Strickland, | | INDICATIONS A | | CUTE AZ PNEUMONIA, COPD CONCLUSIONS 1. Good pump, moderate [...] posterior mitral valve leaflet.Tricuspid Valve: | | Hnjd-hf-kqlsvqzu tricuspid regurgitation present.Tricuspid Valve: There is moderate [...] Major: 4.31 cmRVIDd: 3.51 cmLAAs A2C: 17.11 ic3BTFGT A-L | | A2C: 55.22 mlLALs A2C: 4.50 cmAo Diam: 3.51 cmAV Cusp: 2.42 cmLA Diam: 4.02 | | cmLA/Ao: 1.14%FS: 33.70 %EDV(Teich): 115.90 mlEF(Teich): 62.30 %ESV(Teich): | | 43.69 mlIVSd: 0.89 cmIVSs: 1.28 cmLVIDd: 4.95 cmLVIDs: 3.28 cmLVPWd: 0.89 | | cmLVPWs: 1.50 cmSV(Teich): 72.21 mlD-E Excursion: 1.51 cmE-F [place]: 0.07 | | m/sEPSS: 0.73 cmIVC diameter: 2.47 cmIVC collapse: 1.11 cmIVC % collapse: 52.36 | | %HR: 78.78 BPMAV maxP.53 mmHgAV meanP.92 mmHgAV Vmax: 1.46 m/Viri Vmean: | | 1.06 m/Viri VTI: 33.32 cmAVA Vmax: 3.14 cm2AVA (VTI): 2.80 zp5ICAW Dopp: 3.45 | | l/psru9FROV Dopp: 7.15 l/minHR: 76.55 BPMLVOT maxP.44 mmHgLVOT [...] 3.55 m/sTV A Manjeet: 0.73 m/sTV Dec [place]: 6.25 m/s2TV Dec Time: 121.02 msTV E Manjeet: | | 0.75 m/sTV E/A Ratio: 1.03 Interior Design Director: KVWAuthenticated by: Vinny Strickland | | MDReport [...] | |D-E Excursion: 1.51 cm | |E-F [place]: 0.07 m/s | |EPSS: 0.73 cm | [...] A Manjeet: 0.73 m/s | |TV Dec [place]: 6.25 m/s2 | |TV Dec Time: 121.02 ms | |TV E Manjeet: 0.75 m/s | |TV E/A Ratio: 1.03 | | | |Interior Design Director: KVW | |Authenticated by: Vinny Strickland MD [...] 42 years FemaleCT | | CHEST WO QYIRLBCA13/4/2013 7:10 AM HISTORY: Shortness of breath, hypoxia [...] + + | Historically converted procedure from [facility] Epic environment | EXTERNAL LAB | + [...] (500), | | | | | | senior editor NICK GOMEZ (2) | | | [...] + | NSTEMI (non-ST elevated myocardial infarction) ([facility]) Acute myocardial infarction, | | subendocardial infarction, episode of care unspecified | + + | Current smoker Tobacco use disorder | + + | RA (rheumatoid arthritis) ([facility]) Rheumatoid arthritis | + + | ARF (acute renal failure) ([facility]) Acute kidney failure, unspecified | + + [...]
--- OUTSIDE RECORDS SUMMARY | ~2019-09-02 | XMS | Encounter Summary ---
Demographics + + + | Address | [address] | | | [place] [address] | + + + | Home Phone [...] Author | [facility] | + + + | Organization | [facility] | + + + | Address | Unknown | + + + | Phone | Unavailable | + + + Support + + + + + | Name | Relationship | Address | Phone | + + + + + | Scot Johnson | ECON | [address] | | | | | [place] [address] | | + + + + + Care Team Providers + +------+ + | Care Edge Kitter Name | Role | Phone | + [...] as of this encounter Progress Notes Interface, Icebox Worker In - 02/18/2006 3:06 AM PSTCLINIC DATE: 06/10/2000 RHEUMATOLOGY CLINIC HISTORY OF PRESENT ILLNESS: Ms. Kait Min is a 30-year-old female with a diagnosis of rheumatoid arthritis. She has been followed in the Rheumatology Clinic at [facility] by Dr. Ameya Steen in the past. [...] Enbrel by her primary care doctor in [place] with the guidance of Dr. Steen. She [...] her fingers bilaterally. She has slightly reduced piercer operator strength bilaterally but full range of motion to piercer operator bilaterally. She has bilateral synovial cysts on [...] address. Dorene Waite M.D. Deyvi Lainez M.D. [facility] / HS [id number] / [id number] / [id number] / [id number] signed by Interface, Icebox Worker In at 02/18/2006 3:06 AM PSTdocume nted in this encounter Plan of Treatment Not on filedocumented as of this encounter Visit Diagnoses Not on filedocumented in this encounter"
--- OUTSIDE RECORDS SUMMARY | ~2019-09-02 | XMS | Encounter Summary ---
Demographics + + + | Address | [address] | | | [place] [address] | + + + | Home Phone [...] | | | | | [place] [address] | | + + + + + Care Team Providers + +------+ + | Care Interactive Graphic Designer Name | Role | Phone | + +------+ + PCP | Unavailable | + +------+ + Encounter Details +--------+ + + + + | Date | Type | Department | Care Team | Description | +--------+ + + + + | 10/31/ | Respiratory | | Other, Faculty | | | 2006 | Therapy | | [phone] | | +--------+ + + + + [...] Cabrera, | | | | | | NEWS VIDEOGRAPHER | | | | + + + [...] [facility] | [address] | [facility] [place] | | | DIAGNOSTICS - | [address] | [address] | | | PULMONARY FUNCTION | | | | + + + + + documented in this encounter Visit Diagnoses Not on filedocumented in this encounter"
--- OUTSIDE RECORDS SUMMARY | ~2019-09-02 | XMS | Encounter Summary ---
Demographics + + + | Address | [address] | | | [place] [address] | + + + | Home Phone [...] | | | | | [place] [address] | | + + + + + | Robson Min | ECON | Unknown | | + + + + + | Isabella Whitehead | ECON | Unknown | | + + + + + | Seven Neff | ECON | Unknown | | + + + + + Care Team Providers + +------+ + | Care Bond Clerk Name | Role | Phone | [...] | | | | | disease, | [place], | [place] [address] | | | | | unspecified | [place] | Phone: | | | | | ([facility]) | [address] | [phone] | | | | | Obstructive | Phone: | Fax: | | | | | sleep apnea | [phone] | [phone] | | | | | (adult) | Fax: | | | | | | (pediatric) | [phone] | | | | | | Procedures [...] + + | 01/25/ | [facility] | [facility] | [place], | COPD, moderate ([facility]) | | 2019 | Visit | PULMONARY [address] | MD [address] | (Primary Dx); | | | | [place], | [place], [place] | Tobacco use | | | | [place] [address] | [address] | disorder; Alveolar | | | | [phone] | | hypoventilation; | | | | [...] Wash your hands often. Use alcohol-based hand housekeeping/laundry when you don t have access to [...] and open the door. Date Last Reviewed: 03/19/201619990546-7761 The [employer] [place] [address], [place] [address]. All righ ts reserved. This information is [...] decortication changes Acid reflux disease Angina pectoris ([facility]) Arrhythmia Bipolar 1 disorder ([facility]) CHRONIC TENSION HEADACHE Classical migraine without mention of intractable migraine Diabetes mellitus, type 2 ([facility]) Empyema lung ([facility]) 2006 right GI bleeding Hypercholesterolemia Hypertension Hypothyroidism IBS (irritable bowel syndrome) Knee pain Lymphedema Myocardial infarction ([facility]) Nausea and vomiting Nocturia Obesity Panic anxiety syndrome Pneumonia Pyoderma gangreosum-LE RA (rheumatoid arthritis) ([facility]) Followed by Dr. Becerra Rheumologist in [place] Reflux esophagitis Restless leg syndrome Urinary [...] p: , Rfl: Continuous Blood Gluc Sensor (Codemedia HUAN 14 DAY SENSOR) [facility], , Disp: , Rfl: DOK 100 MG capsule, Take 100 mg by mouth 2 times daily., Disp: , Rfl: ergocalciferol (VITAMIN D-2) 50,000 units capsule, Take 50,000 Units by mouth Once a w [place]., Disp: , Rfl: fluticasone-salmeterol (ADVAIR HFA) 115-21 [...] daily., Disp: , Rfl: Respiratory Therapy Supplies [facility], Portable oxygen concentrator to provide O2 at [...] QUADR W/PRES (PED/ADOL/ADULT) MULTIDOSE 01/27/2017, 02/10/2018 INFLUENZA, V8V0-76, UNSPECIFIED 03/09/2009 INFLUENZA, UNSPECIFIED FORMULATION 04/27/2000, 02/04/2011, [...] [place] | | | | | | [id number] | | | | | | | | +--------+---------+ + + + | 11/05/ | Office | Neurology | Tariq, | | | 2019 | Visit | | Theo, CUSTOMER SOLUTIONS TEAMMATE [address] | | | | | | [address] [facility], | | | | | | [place] [address] | | | | | | [phone] | | | | | | | [...]
--- OUTSIDE RECORDS SUMMARY | ~2019-09-02 | XMS | Encounter Summary ---
Demographics + + + | Address | [address] | | | [place] [address] | + + + | Home Phone [...] | | | | | [place] [address] | | + + + + + | Robson Min | ECON | Unknown | | + + + + + | Isabella Whitehead | ECON | Unknown | | + + + + + | Seven Neff | ECON | Unknown | | + + + + + Care Team Providers + +------+ + | Care Legal Coordinator Name | Role | Phone | [...] [place] | | | | | | [address] | | | | | | [phone] | | | +--------+ + + + [...] [place] | | | | | | [address] | | | | | | | | +--------+---------+ + + + | 11/05/ | Office | Neurology | Tariq, | | | 2019 | Visit | | ANGELA Venegas [address] | | | | | [address] [place], | | | | | | [place] [address] | | | | | | [phone] | | | | | | | | +--------+---------+ + + + documented as of this encounter Visit Diagnoses Not on filedocumented in this encounter"
--- OUTSIDE RECORDS SUMMARY | ~2019-09-02 | XMS | Encounter Summary ---
Demographics + + + | Address | [address] | | | [place] [address] | + + + | Home Phone [...] | | | | | [place] [address] | | + + + + + | Robson Min | ECON | Unknown | | + + + + + | Isabella Whitehead | ECON | Unknown | | + + + + + | Seven Neff | ECON | Unknown | | + + + + + Care Team Providers + +------+ + | Care Service Writer Advisor Name | Role | Phone | [...] | | | | with aura, | BULLARD OPERATOR [address] | | | | | intractable, | [address] | [place] | | | | | without | [place] | [place], [place] | | | | | status | [place], [place] | [address] Phone: | | | | | migrainosus | [address] | [phone] | | | | | Procedures | Phone: | Fax: | | | | | [place] | [phone] | [phone] | | | | | INJECTION | Fax: | | | | | | PAIN CLINIC | [phone] | | | | | | PROCEDURE [...] | | | DR [address] [place], | [address] | (Primary Dx) | | | | [place] [address] | | | | | | [phone] | | | +--------+ + + + [...] | | | | | [place] | | | | | | [address] | | | | | | | | +--------+---------+ + + + | 11/05/ | Office | Neurology | Tariq, | | | 2019 | Visit | | ANGELA Venegas [address] | | | | | | [address] [facility], | | | | | | [place] [address] | | | | | | [phone] | | | | | | | [...]
--- OUTSIDE RECORDS SUMMARY | ~2019-09-02 | XMS | Encounter Summary ---
Demographics + + + | Address | [address] | | | [place] [address] | + + + | Home Phone [...] | | | | | [place] [address] | | + + + + + | Robson Min | ECON | Unknown | | + + + + + | Isabella Whitehead | ECON | Unknown | | + + + + + | Seven Neff | ECON | Unknown | | + + + + + Care Team Providers + +------+ + | Care Quill Winder Name | Role | Phone | [...] | Sleep | Diagnoses | Harjinder, | [facility] | | | Services | Medicine | Sleep | MD Navdeep | Center [address] | | | Required | | apnea, | [address] | [place] | | | | | unspecified | [address] | [place], | | | | | type | [place], | [place] [address] | | | | | Alveolar | [place] [address] | Phone: | | | | | hypoventilat | Phone: | [phone] | | | | | ion | [phone] | Fax: | | | | | Procedures | Fax: | [phone] | | | | | [place] POLYSOM | [phone] | | | | | | 6/>YRS [...] [address] | oximetry) | | | | [place], | [place], [place] | | | | | [place] [address] | [address] | | | | | [phone] | | | +--------+ + + + [...] [place] | | | | | | [address] | | | | | | | | +--------+---------+ + + + | 11/05/ | Office | Neurology | Tariq, | | | 2019 | Visit | | ANGELA Venegas [address] | | | | | | [address] [facility], | | | | | | [place] [address] | | | | | | [phone] | | | | | | | | +--------+---------+ + + + + + +--------+ + + | Name | Type | Priori | Associated Diagnoses | Order Schedule | | | | ty | | | + + +--------+ + + | * [facility] - | Outpatient | Routin [...]
--- OUTSIDE RECORDS SUMMARY | ~2019-09-02 | XMS | Encounter Summary ---
Demographics + + + | Address | [address] | | | [place] [address] | + + + | Home Phone [...] | | | | | [place] [address] | | + + + + + Care Team Providers + +------+ + | Care Public Health Professor Name | Role | Phone | + +------+ + PCP | Unavailable | + +------+ + Encounter Details +--------+ + + + + | Date | Type | Department | Care Team | Description | +--------+ + + + + | 10/31/ | Respiratory | | Other, Faculty | | | 2006 | Therapy | | [phone] | | +--------+ + + + + [...] Cabrera, | | | | | | CHECK TOTALER | | | | + + + [...] [facility] | [address] | [place], [place] | | | DIAGNOSTICS - | [address] | [address] | | | PULMONARY FUNCTION | | | | + + + + + documented in this encounter Visit Diagnoses Not on filedocumented in this encounter"
--- OUTSIDE RECORDS SUMMARY | ~2019-09-02 | XMS | Encounter Summary ---
Demographics + + + | Address | [address] | | | [place] [address] | + + + | Home Phone [...] | | | | | [place] [address] | | + + + + + Care Team Providers + +------+ + | Care Millwright Apprentice Name | Role | Phone | + [...] DEPARTMENT OF | [address] | [place] [address] | | | PATHOLOGY | [address] | | | + + + + + | [facility] DEPARTMENT OF | [address] | [place] [address] | | | PATHOLOGY | [address] [...] | + + + + + | [facility] DEPARTMENT | [address] [facility] [address] [address] | [place] [address] | | | PATHOLOGY | [address] | | | + + + + + | [facility] DEPARTMENT | [address] [facility] | [place] [address] | | | PATHOLOGY | [address] | | | + + + + + documented in this encounter Visit Diagnoses Not on filedocumented in this encounter"
--- OUTSIDE RECORDS SUMMARY | ~2019-09-02 | XMS | Encounter Summary ---
Demographics + + + | Address | [address] | | | [place] [address] | + + + | Home Phone [...] | | | | | [place] [address] | | + + + + + | Robson Min | ECON | Unknown | | + + + + + | Isabella Whitehead | ECON | Unknown | | + + + + + | Seven Neff | ECON | Unknown | | + + + + + Care Team Providers + +------+ + | Care President And Cmo Name | Role | Phone | + [...] RN | hypoventilation; | | | | [place], | | Hypoxemia | | | | [place] [address] | | | | | | [phone] | | | +--------+ + + + [...] [place] | | | | | | [address] | | | | | | | | +--------+---------+ + + + | 11/05/ | Office | Neurology | Tariq, | | | 2019 | Visit | | ANGELA Venegas [address] | | | | | [address] [place], | | | | | | [place] [address] | | | | | | [phone] | | | | | | | | +--------+---------+ + + + documented as of this encounter Visit Diagnoses + + | Diagnosis | + + | Alveolar hypoventilation Other dyspnea and respiratory abnormality | + + | Hypoxemia | + + documented in this encounter"
--- OUTSIDE RECORDS SUMMARY | ~2019-09-02 | XMS | Encounter Summary ---
Demographics + + + | Address | [address] | | | [place] [address] | + + + | Home Phone [...] | | | | | [place] [address] | | + + + + + Care Team Providers + +------+ + | Care Cutter And Presser Name | Role | Phone | + +------+ + PCP | Unavailable | + +------+ + Encounter Details +--------+ + + + + | Date | Type | Department | Care Team | Description | +--------+ + + + + | 10/31/ | Respiratory | | Other, Faculty | | | 2006 | Therapy | | [phone] | | +--------+ + + + + [...] | | | | | Y | CROWN ATTACHER | | | | + + + [...] [facility] | [address] | [place], [place] | | | DIAGNOSTICS - | [address] | [address] | | | PULMONARY FUNCTION | | | | + + + + + documented in this encounter Visit Diagnoses Not on filedocumented in this encounter"
--- OUTSIDE RECORDS SUMMARY | ~2019-09-02 | XMS | Encounter Summary ---
Demographics + + + | Address | [address] | | | [place] [address] | + + + | Home Phone [...] | | | | | [place] [address] | | + + + + + | Robson Min | ECON | Unknown | | + + + + + | Isabella Whitehead | ECON | Unknown | | + + + + + | Seven Neff | ECON | Unknown | | + + + + + Care Team Providers + +------+ + | Care Lead Engineer Name | Role | Phone | [...] | | | | [address] [facility] | [place] [place] | | | | | [address] [place] [address] | [address] | | | | | [address] | [phone] | | | | | [phone] | | | +--------+ + + + [...] [place] | | | | | | [address] | | | | | | | | +--------+---------+ + + + | 11/05/ | Office | Neurology | Tariq, | | | 2019 | Visit | | [address] | | | | | | [address] [place] [place], | | | | | | [place] [address] | | | | | | [phone] | | | | | | | | +--------+---------+ + + + documented as of this encounter Visit Diagnoses Not on filedocumented in this encounter"
--- OUTSIDE RECORDS SUMMARY | ~2019-09-02 | XMS | Clinical Summary ---
Demographics + + + | Address | [address] | | | [place] [address] | + + + | Home Phone [...] | | | | | [place] [address] | | + + + + + Care Team Providers + +------+ + | Care Application Security Developer Name | Role | Phone | + +------+ + | Bart Ba DO | PCP | | + +------+ + Source Comments [facility] is fully live on both [facility] and [facility] Allergies + + + + [...] oral route every 8 | | | 10/06 | | e | | ate (AUGMENTIN) | hours x 3 weeks | | | 08 | | | | 500-125 mg Oral | | | | | | | | Tablet | | | | | | | + + + +---------+------+------+-------+ Active Problems Not on file Encounters +--------+--------+ + + + | Date | Type | Specialty | Care Team | Description | +--------+--------+ + + + | 03/ | Intake | | | N/A | | 2020 | | | | | +--------+--------+ + + + from Last 3 Months Social History + +-------+ +--------+------+ | Tobacco [...]
--- OUTSIDE RECORDS SUMMARY | ~2019-09-02 | XMS | Encounter Summary ---
Demographics + + + | Address | [address] | | | [place] [address] | + + + | Home Phone [...] Author + + + | Author | [facility] | + + + | Organization | [facility] | + + + | Address | Unknown | + + + | Phone | Unavailable | + + + Support + + + + + | Name | Relationship | Address | Phone | + + + + + | Scot Johnson | ECON | [address] | | | | | [place] [address] | | + + + + + Care Team Providers + +------+ + | Care Tank Erector Name | Role | Phone | + [...] Cohen | | | | | | [facility], [address] [place] [address] | | | | | | [place], [place] | | | | | | [address] | | | | | | [phone] | | | +--------+ + + + [...] as of this encounter Progress Notes Interface, Md Psychiatry In - 05/05/2006 1:04 AM PST [address] [address] or November 12, 1997 HERMAN ELMORE MD [address] [place] [address] RE:CARLINE MIN MR#:[id number] Elmore: We saw your patient, Carline Min, for a rheumatoid consultation at the [facility] on November 12, 1997. The patient was [...] Lainez, or myself. Sincerely, Daniel Laurent M.D. Vice President Of Brand Management, Internal Medicine Deyvi Lainez M.D. Motorcycle Delivery Driver, Rheumatology ECS/AB:cak documented in this encounter Plan of Treatment Not on filedocumented as of this encounter Visit Diagnoses Not on filedocumented in this encounter"
--- OUTSIDE RECORDS SUMMARY | ~2019-09-02 | XMS | Encounter Summary ---
Demographics + + + | Address | [address] | | | [place] [address] | + + + | Home Phone [...] | | | | | [place] [address] | | + + + + + | Robson Min | ECON | Unknown | | + + + + + | Isabella Whitehead | ECON | Unknown | | + + + + + | Seven Neff | ECON | Unknown | | + + + + + Care Team Providers + +------+ + | Care Heat Curer Name | Role | Phone | + +------+ + | Bart Ba DO | PCP | | + +------+ + Encounter Details +--------+ + + + + | Date | Type | Department | Care Team | Description | +--------+ + + + + | 08/20/ | Imaging | [facility] | Provider, | | | 2018 | Exam | MED CTR EXTERNAL | MD [address] | | | | | IMAGING [address] | [address] | | | | | [address] | [place] [address] | | | | | [place] [address] | | | | | | [phone] | | | +--------+ + + + [...] [place] | | | | | | [address] | | | | | | | | +--------+---------+ + + + | 11/05/ | Office | Neurology | Tariq, | | | 2019 | Visit | | [address] | | | | | | [address] [place], | | | | | | [place] [address] | | | | | | [phone] | | | | | | | [...]
--- OUTSIDE RECORDS SUMMARY | ~2019-09-02 | XMS | Encounter Summary ---
Demographics + + + | Address | [address] | | | [place] [address] | + + + | Home Phone [...] | | | | | [place] [address] | | + + + + + | Robson Min | ECON | Unknown | | + + + + + | Isabella Whitehead | ECON | Unknown | | + + + + + | Seven Neff | ECON | Unknown | | + + + + + Care Team Providers + +------+ + | Care Clinical Care Coordinator Name | Role | Phone | [...] | MED CTR EXTERNAL | MD [address] | | | | | IMAGING [address] | [address] | | | | | [address] | [place] [address] | | | | | [place] [address] | | | | | | [phone] | | | +--------+ + + + [...] [place] | | | | | | [address] | | | | | | | | +--------+---------+ + + + | 11/05/ | Office | Neurology | Tariq, | | | 2019 | Visit | | [address] | | | | | | [address] [place], | | | | | | [place] [address] | | | | | | [phone] | | | | | | | [...]
--- OUTSIDE RECORDS SUMMARY | ~2019-09-02 | XMS | Encounter Summary ---
Demographics + + + | Address | [address] | | | [place] [address] | + + + | Home Phone [...] | | | | | [place] [address] | | + + + + + Care Team Providers + +------+ + | Care Seamer Panty Hose Name | Role | Phone | + +------+ + PCP | Unavailable | + +------+ + Encounter Details +--------+ + + + + | Date | Type | Department | Care Team | Description | +--------+ + + + + | 10/22/ | Respiratory | | Other, Faculty | | | 2006 | Therapy | | [phone] | | +--------+ + + + + [...] [facility] | [address] | [place], [place] | | | DIAGNOSTICS - | [address] | [address] | | | PULMONARY FUNCTION | | | | + + + + + documented in this encounter Visit Diagnoses Not on filedocumented in this encounter"
--- OUTSIDE RECORDS SUMMARY | ~2019-09-02 | XMS | Encounter Summary ---
Demographics + + + | Address | [address] | | | [place] [address] | + + + | Home Phone [...] | | | | | [place] [address] | | + + + + + Care Team Providers + +------+ + | Care Scrub Nurse Name | Role | Phone | + +------+ + PCP | Unavailable | + +------+ + Encounter Details +--------+ + + + + | Date | Type | Department | Care Team | Description | +--------+ + + + + | 10/30/ | Respiratory | | Other, Faculty | | | 2006 | Therapy | | [phone] | | +--------+ + + + + [...] [facility] | [address] | [place], [place] | | | DIAGNOSTICS - | [address] | [address] | | | PULMONARY FUNCTION | | | | + + + + + documented in this encounter Visit Diagnoses Not on filedocumented in this encounter"
--- OUTSIDE RECORDS SUMMARY | ~2019-09-02 | XMS | Encounter Summary ---
Demographics + + + | Address | [address] | | | [place] [address] | + + + | Home Phone [...] | | | | | [place] [address] | | + + + + + | Robson Min | ECON | Unknown | | + + + + + | Isabella Whitehead | ECON | Unknown | | + + + + + | Seven Neff | ECON | Unknown | | + + + + + Care Team Providers + +------+ + | Care Head Filter Tank Tender Helper Name | Role | Phone [...] | | PULMONARY [address] | [address], [address] | | | | | [place] | | | | | | [place] [address] | | | | | | [phone] | | | +--------+ + + + [...] | | | | | [place] | | | | | | [address] | | | | | | | | +--------+---------+ + + + | 11/05/ | Office | Neurology | Tariq, | | | 2019 | Visit | | [address] | | | | | | [address] [place], | | | | | | [place] [address] | | | | | | [phone] | | | | | | | | +--------+---------+ + + + documented as of this encounter Visit Diagnoses Not on filedocumented in this encounter"
--- OUTSIDE RECORDS SUMMARY | ~2019-09-02 | XMS | Encounter Summary ---
Demographics + + + | Address | [address] | | | [place] [address] | + + + | Home Phone [...] | | | | | [place] [address] | | + + + + + Care Team Providers + +------+ + | Care Fly Maker Name | Role | Phone | [...] | | | | | [place] [address] | | +--------+ + + + + [...] | + +---------+ + + | [facility]PARTMENT OF | | | | | [...] | + +---------+ + + | [facility] DEPARTMENT OF | | | | | RADIOLOGY | | | | + +---------+ + + documented in this encounter Visit Diagnoses Not on filedocumented in this encounter"
--- OUTSIDE RECORDS SUMMARY | ~2019-09-02 | XMS | Encounter Summary ---
Demographics + + + | Address | [address] | | | [place] [address] | + + + | Home Phone [...] | | | | | [place] [address] | | + + + + + | Robson Min | ECON | Unknown | | + + + + + | Isabella Whitehead | ECON | Unknown | | + + + + + | Seven Neff | ECON | Unknown | | + + + + + Care Team Providers + +------+ + | Care Environmental Air Specialist Name | Role | Phone | [...] [address] | | | | | [place] [address] | | | | | | [phone] | | | +--------+ + + + [...] [place] | | | | | | [address] | | | | | | | | +--------+---------+ + + + | 11/05/ | Office | Neurology | Tariq, | | | 2019 | Visit | | [address] | | | | | | [address] [place], | | | | | | [place] [address] | | | | | | [phone] | | | | | | | | +--------+---------+ + + + documented as of this encounter Visit Diagnoses Not on filedocumented in this encounter"
--- OUTSIDE RECORDS SUMMARY | ~2019-09-02 | XMS | Encounter Summary ---
Demographics + + + | Address | [address] | | | [place] [address] | + + + | Home Phone [...] | | | | | [place] [address] | | + + + + + | Robson Min | ECON | Unknown | | + + + + + | Isabella Whitehead | ECON | Unknown | | + + + + + | Seven Neff | ECON | Unknown | | + + + + + Care Team Providers + +------+ + | Care Bowling Alley Refinisher Name | Role | Phone | + [...] | | | Procedures | [place], | [place], [place] | | | | | OFFICE | [place] [address] | [address] Phone: | | | | | VISIT | Phone: | [phone] | | | | | REGULAR | [phone] | Fax: | | | | | | Fax: | [phone] | | | | | | [phone] | | + +--------+ + + + + Encounter Details +--------+---------+ + + + | Date | Type | Department | Care Team | Description | +--------+---------+ + + + | 04/06/ | Office | [facility] | Laine Batista DO | Hypertension, | | 2019 | Visit | CARDIOLOGY [place] | [address] | unspecified type | | | | [address] | [place], [place] | (Primary Dx); Type 2 | | | | [address] | [id number] | diabetes mellitus | | | | [place], [place] | | with hyperosmolarity | | | | [address] | | without coma, | | | | [phone] | | without long-term | | | [...] DO - 04/06/2019 1:[address] [facility] Cardiology Cardiology Consult Note Reason [...] decortication changes Acid reflux disease Angina pectoris ([facility]) Arrhythmia Bipolar 1 disorder ([facility]) CHRONIC TENSION HEADACHE Classical migraine without mention of intractable migraine Diabetes mellitus, type 2 ([facility]) Empyema lung ([facility]) 2006 right GI bleeding Hypercholesterolemia Hypertension Hypothyroidism IBS (irritable bowel syndrome) Knee pain Lymphedema Myocardial infarction ([facility]) Nausea and vomiting Nocturia Obesity Panic anxiety syndrome Pneumonia Pyoderma gangreosum-LE RA (rheumatoid arthritis) ([facility]) Followed by Dr. Becerra Rheumologist in [place] Reflux esophagitis Restless leg syndrome Urinary [...] mouth 2 times daily. Respiratory Therapy Supplies [facility] Portable oxygen concentrator to provide [...] file Gets together: Not on file Attends taoist service: Not on file Active member of [...] 09/27/ | Office | Pulmonology | Navdeep Grnade, | | | 2019 | Visit | | MD [address] | | | | | | [place] | | | | | | [address] | | | | | | | | +--------+---------+ + + + | 11/05/ | Office | Neurology | Tariq, | | | 2019 | Visit | | [address] | | | | | | [address] [facility] [place], | | | | | | [place] [address] | | | | | | [phone] | | | | | | | [...]
--- OUTSIDE RECORDS SUMMARY | ~2019-09-02 | XMS | Encounter Summary ---
Demographics + + + | Address | [address] | | | [place] [address] | + + + | Home Phone [...] Author + + + | Author | [facility] | + + + | Organization | [facility] | + + + | Address | Unknown | + + + | Phone | Unavailable | + + + Support + + + + + | Name | Relationship | Address | Phone | + + + + + | Scot Johnson | ECON | [address] | | | | | [place] [address] | | + + + + + Care Team Providers + +------+ + | Care Gasoline Finisher Name | Role | Phone | [...] Clinic | | | | | | [facility], [address] | | | | | | [place], [place] | | | | | | [address] | | | | | | [phone] | | | +--------+ + + + [...] | | + +---------+ + + | [facility] DEPARTMENT OF | | | | | RADIOLOGY | | | | + +---------+ + + documented in this encounter Visit Diagnoses Not on filedocumented in this encounter"
--- OUTSIDE RECORDS SUMMARY | ~2019-09-02 | XMS | Encounter Summary ---
Demographics + + + | Address | [address] | | | [place] [address] | + + + | Home Phone [...] | | | | | [place] [address] | | + + + + + | Robson Min | ECON | Unknown | | + + + + + | Isabella Whitehead | ECON | Unknown | | + + + + + | Seven Neff | ECON | Unknown | | + + + + + Care Team Providers + +------+ + | Care Instructor Warper Name | Role | Phone | + [...] | Abnormal | MD Navdeep | [address] | | | | | chest CT | [address] | [place], | | | | | Procedures | [address] | [place] [address] | | | | | CT Chest wo | [place], | Phone: | | | | | [place]rast | [place] [address] | [phone] | | | | | | Phone: | Fax: | | | | | | [phone] | [phone] | | | | | | Fax: | | | | | | | [phone] | | +--------+--------+ + + + + [...] | Abnormal | MD Navdeep | [address] | | | | | chest CT | [address] | [place], | | | | | Procedures | [place] | [place] [address] | | | | | CT Chest wo | [place], | Phone: | | | | | Contrast | [place] [address] | [phone] | | | | | | Phone: | Fax: | | | | | | [phone] | [phone] | | | | | | Fax: | | | | | | | [phone] | | +--------+--------+ + + + + Encounter Details +--------+ + + + + | Date | Type | Department | Care Team | Description | +--------+ + + + + | 04/24/ | Hospital | [facility] | Navdeep Grande, | Abnormal chest CT | | 2015 | Encounter | MED CTR CT [address] | MD [address] | | | | | [place], | [place], [place] | | | | | [place] [address] | [address] | | | | | [phone] | | | +--------+ + + + [...] | 0 | 10/08/19 | | | [id number] | every 6 hours as | | [...] [place] | | | | | | [address] | | | | | | | | +--------+---------+ + + + | 11/05/ | Office | Neurology | Tariq, | | | 2019 | Visit | | [address] | | | | | | [address] [place], | | | | | | [place] [address] | | | | | | [phone] | | | | | | | [...] + | MISCELLANEOUS LAB | | | [phone] | + +---------+ + + | MISCELANIOUS LAB | | | [phone] | + +---------+ + + documented in this encounter Visit Diagnoses + + | Diagnosis | + + | Abnormal chest CT Nonspecific (abnormal) findings on radiological and other | | examination of other intrathoracic organs | + + documented in this encounter"
--- OUTSIDE RECORDS SUMMARY | ~2019-09-02 | XMS | Encounter Summary ---
Demographics + + + | Address | [address] | | | [place] [address] | + + + | Home Phone [...] | | | | | [place] [address] | | + + + + + Care Team Providers + +------+ + | Care Ultrasound Sonographer Name | Role | Phone | + +------+ + PCP | Unavailable | + +------+ + Encounter Details +--------+ + + + + | Date | Type | Department | Care Team | Description | +--------+ + + + + | 10/29/ | Respiratory | | Other, Faculty | | | 2006 | Therapy | | [phone] | | +--------+ + + + + [...] [facility] | [address] | [place] | | | DIAGNOSTICS - | [address] | [address] | | | PULMONARY FUNCTION | | | | + + + + + documented in this encounter Visit Diagnoses Not on filedocumented in this encounter"
--- OUTSIDE RECORDS SUMMARY | ~2019-09-02 | XMS | Encounter Summary ---
Demographics + + + | Address | [address] | | | [place] [address] | + + + | Home Phone [...] | | | | | [place] [address] | | + + + + + Care Team Providers + +------+ + | Care Inner Tube Inserter Name | Role | Phone | [...] as of this encounter Progress Notes Interface, Assistant Property Manager In - 02/18/2006 3:06 AM PSTCLINIC DATE: 06/10/2000 RHEUMATOLOGY CLINIC HISTORY OF PRESENT ILLNESS: Ms. Kait Min is a 30-year-old female with a diagnosis of rheumatoid arthritis. She has been followed in the Rheumatology Clinic at [facility] by Dr. Ameya Steen in the [...] Enbrel by her primary care doctor in [place] with the guidance of Dr. Steen. She [...] her fingers bilaterally. 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 She has bilateral synovial cysts on [...] address. Dorene Waite M.D. Deyvi Lainez M.D. [facility] / HS [id number] / [id number] / [id number] / [id number] signed by Interface, Assistant Property Manager In at 02/18/2006 3:06 AM PSTdocume nted in this encounter Plan of Treatment Not on filedocumented as of this encounter Visit Diagnoses Not on filedocumented in this encounter"
--- OUTSIDE RECORDS SUMMARY | ~2019-09-02 | XMS | Encounter Summary ---
Demographics + + + | Address | [address] | | | [place] [address] | + + + | Home Phone [...] Author + + + | Author | [facility] | + + + | Organization | [facility] | + + + | Address | Unknown | + + + | Phone | Unavailable | + + + Support + + + + + | Name | Relationship | Address | Phone | + + + + + | Scot Johnson | ECON | [address] | | | | | [place] [address] | | + + + + + Care Team Providers + +------+ + | Care Registered Nurse Surgical Services Name | Role | Phone | + +------+ + | Bart Ba DO | PCP | | + +------+ + Encounter Details +--------+ + + + + | Date | Type | Department | Care Team | Description | +--------+ + + + + | 12/12/ | Telephone | Dermatology | Azucena Jacobson MD | | | 2007 | | Medical at [facility] [address] | [address] | | | | | [address] | Cathryn [place], | | | | | Mailcode: [id number] | [place] [address] | | | | | [place] for [facility] | [phone] | | | | | and Healing, | | | | | | | | | | | | Floor [place], [place] | | | | | | [address] | | | | | | [phone] | | | +--------+ + + + [...]
--- OUTSIDE RECORDS SUMMARY | ~2019-09-02 | XMS | Encounter Summary ---
Demographics + + + | Address | [address] | | | [place] [address] | + + + | Home Phone [...] + + + | Author | [facility] | + + + | Organization | [facility] | + + + | Address | Unknown | + + + | Phone | Unavailable | + + + Support + + + + + | Name | Relationship | Address | Phone | + + + + + | Scot Johnson | ECON | [address] | | | | | [place] [address] | | + + + + + Care Team Providers + +------+ + | Care Hang Gliding Instructor Name | Role | Phone | [...] Clinic | | | | | | [facility], [address] | | | | | | [place], [place] | | | | | | [address] | | | | | | [phone] | | | +--------+ + + + [...] | | | | | | 2: AILCE MCCOY | | | | | | [...]
--- OUTSIDE RECORDS SUMMARY | ~2019-09-02 | XMS | Encounter Summary ---
Demographics + + + | Address | [address] | | | [place] [address] | + + + | Home Phone [...] | | | | | [place] [address] | | + + + + + Care Team Providers + +------+ + | Care Proprietary Trader Name | Role | Phone | + +------+ + PCP | Unavailable | + +------+ + Encounter Details +--------+ + + + + | Date | Type | Department | Care Team | Description | +--------+ + + + + | 10/22/ | Respiratory | | Other, Faculty | | | 2006 | Therapy | | [phone] | | +--------+ + + + + [...] [facility] | [address] | [place], [place] | | | DIAGNOSTICS - | [address] | [address] | | | PULMONARY FUNCTION | | | | + + + + + documented in this encounter Visit Diagnoses Not on filedocumented in this encounter"
--- OUTSIDE RECORDS SUMMARY | ~2019-09-02 | XMS | Encounter Summary ---
Demographics + + + | Address | [address] | | | [place] [address] | + + + | Home Phone [...] | | | | | [place] [address] | | + + + + + | Robson Min | ECON | Unknown | | + + + + + | Isabella Whitehead | ECON | Unknown | | + + + + + | Seven Neff | ECON | Unknown | | + + + + + Care Team Providers + +------+ + | Care Manager Utilization Management Name | Role | Phone | [...] Beth Kelly | Case Management | | 2018 | | HOSPITAL CASE | G, Case | | | | | MANAGEMENT [address] | Bilingual Legal Assistant-Clinical | | | | | [address] | | | | | | [place] | | | | | | [address] | | | | | | [phone] | | | +--------+ + + + [...] [place] | | | | | | [address] | | | | | | | | +--------+---------+ + + + | 11/05/ | Office | Neurology | Tariq, | | | 2019 | Visit | | [address] | | | | | | [address] [place], | | | | | | [place] [address] | | | | | | [phone] | | | | | | | [...]
--- OUTSIDE RECORDS SUMMARY | ~2019-09-02 | XMS | Encounter Summary ---
Demographics + + + | Address | [address] | | | [place] [address] | + + + | Home Phone [...] | | | | | [place] [address] | | + + + + + | Robson Min | ECON | Unknown | | + + + + + | Isabella Whitehead | ECON | Unknown | | + + + + + | Seven Neff | ECON | Unknown | | + + + + + Care Team Providers + +------+ + | Care Fire Dispatcher Name | Role | Phone | + [...] [address] | | | | | [place] [address] | | | | | | [phone] | | | +--------+ + + + [...] [place] | | | | | | [address] | | | | | | | | +--------+---------+ + + + | 11/05/ | Office | Neurology | Tariq, | | | 2020 | Visit | | [address] | | | | | | [address] [place], | | | | | | [place] [address] | | | | | | [phone] | | | | | | | | +--------+---------+ + + + documented as of this encounter Visit Diagnoses Not on filedocumented in this encounter"
--- OUTSIDE RECORDS SUMMARY | ~2019-09-02 | XMS | Encounter Summary ---
Demographics + + + | Address | [address] | | | [place] [address] | + + + | Home Phone [...] | | | | | [place] [address] | | + + + + + | Robson Min | ECON | Unknown | | + + + + + | Isabella Whitehead | ECON | Unknown | | + + + + + | Seven Neff | ECON | Unknown | | + + + + + Care Team Providers + +------+ + | Care Qa Architect Name | Role | Phone | [...] (Primary Dx) | | | | [place] [address] | | | | | | [phone] | | | +--------+ + + + [...] [place] | | | | | | [address] | | | | | | | | +--------+---------+ + + + | 11/05/ | Office | Neurology | Tariq, | | | 2019 | Visit | | [address] | | | | | | [address] [facility], | | | | | | [place] [address] | | | | | | [phone] | | | | | | | [...]
--- OUTSIDE RECORDS SUMMARY | ~2019-09-02 | XMS | Encounter Summary ---
Demographics + + + | Address | [address] | | | [place] [address] | + + + | Home Phone [...] | | | | | [place] [address] | | + + + + + | Robson Min | ECON | Unknown | | + + + + + | Isabella Whitehead | ECON | Unknown | | + + + + + | Seven Neff | ECON | Unknown | | + + + + + Care Team Providers + +------+ + | Care Crop Picker Name | Role | Phone | + [...] | MED CTR EXTERNAL | MD Shira [address] | | | | | IMAGING [address] | [address] | | | | | [address] | [place] [address] | | | | | [place] [address] | | | | | | [phone] | | | +--------+ + + + [...] [place] | | | | | | [address] | | | | | | | | +--------+---------+ + + + | 11/05/ | Office | Neurology | Tariq, | | | 2019 | Visit | | [address] | | | | | | [address] [place], | | | | | | [place] [address] | | | | | | [phone] | | | | | | | [...]
--- OUTSIDE RECORDS SUMMARY | ~2019-09-02 | XMS | Encounter Summary ---
Demographics + + + | Address | [address] | | | [place] [address] | + + + | Home Phone [...] | | | | | [place] [address] | | + + + + + | Robson Min | ECON | Unknown | | + + + + + | Isabella Whitehead | ECON | Unknown | | + + + + + | Seven Neff | ECON | Unknown | | + + + + + Care Team Providers + +------+ + | Care Publications Distribution Clerk Name | Role | Phone | [...] | | | | | [place] | [address] | [address] | | | | | is without | [address] | [place], | | | | | acute | [place] | [place] [address] | | | | | exacerbation | [address] | Phone: | | | | | ([facility]) | [place] | [phone] | | | | | Procedures | [address] | Fax: | | | | | [place] OFFICE | Phone: | [phone] | | | | | OUTPATIENT | [phone] | | | | | | NEW [...] | (Primary Dx); | | | | [place], | [place], [place] | Chronic bronchitis | | | | [place] [address] | [address] | ([facility]) | | | | [phone] | | | +--------+---------+ + + + [...] in this encounter Patient Instructions Patient Instructions Nvadeep Grande MD - 10/18/2012 10:49 AM PDTContinue [...] 4 times daily., Disp: , Rfl: ; souqisauyt-cyiigdi-rcpwnxop (BUTALBITA L COMPOUND/ASA) per tablet, One tablet [...] [place] | | | | | | [address] | | | | | | | | +--------+---------+ + + + | 11/05/ | Office | Neurology | Tariq, | | | 2019 | Visit | | Theo AUTHORIZATION MANAGER [address] | | | | | | [address] [facility], | | | | | | [place] [address] | | | | | | [phone] | | | | | | | [...]
--- OUTSIDE RECORDS SUMMARY | ~2019-09-02 | XMS | Encounter Summary ---
Demographics + + + | Address | [address] | | | [place] [address] | + + + | Home Phone [...] | | | | | [place] [address] | | + + + + + Care Team Providers + +------+ + | Care Flight Test Supervisor Name | Role | Phone | [...] as of this encounter Progress Notes Interface, Perforator In - 05/02/2006 2:[address] [facility] CLINIC DATE: 11/12/97 RHEUMATOLOGY CLINIC CHIEF COMPLAINT: [...] the family. SOCIAL HISTORY: She lives in [place], [place] with her son and boyfriend. She [...] Sulindac and Prednisone for the moment. The detention goal will be to wean the Prednisone [...] M.D. Resident, Internal Medicine Deyvi Lainez M.D. Cabin Cleaner, Rheumatology ES:aster documented in this encounter Plan of Treatment Not on filedocumented as of this encounter Visit Diagnoses Not on filedocumented in this encounter
--- OUTSIDE RECORDS SUMMARY | ~2019-09-02 | XMS | Encounter Summary ---
Demographics + + + | Address | [address] | | | [place] [address] | + + + | Home Phone [...] | | | | | [place] [address] | | + + + + + | Robson Min | ECON | Unknown | | + + + + + | Isabella Whitehead | ECON | Unknown | | + + + + + | Seven Neff | ECON | Unknown | | + + + + + Care Team Providers + +------+ + | Care Software Asset Management Analyst Name | Role | Phone | + +------+ + | Bart Ba DO | PCP | | + +------+ + Encounter Details +--------+ + + + + | Date | Type | Department | Care Team | Description | +--------+ + + + + | 09/18/ | Abstract | [facility] | Cecilio Amato MD | | | 2013 | | GASTROENTEROLOGY | [address] | | | | | [address] [facility] | [place], [place] | | | | | [address] [place] [address] | [address] | | | | | [address] | [phone] | | | | | [phone] | | | +--------+ + + + [...] [place] | | | | | | [address] | | | | | | | | +--------+---------+ + + + | 11/05/ | Office | Neurology | Tariq, | | | 2019 | Visit | | [address]A Venegas [address] | | | | | | [address] [place], | | | | | | [place] [address] | | | | | | [phone] | | | | | | | [...] + | [facility] | [address] | [place] | | | [facility] | | [address], [facility] | | | - LABORATORY | | | | + + + + + documented in this encounter Visit Diagnoses Not on filedocumented in this encounter"
--- OUTSIDE RECORDS SUMMARY | ~2019-09-02 | XMS | Encounter Summary ---
Demographics + + + | Address | [address] | | | [place] [address] | + + + | Home Phone [...] | | | | | [place] [address] | | + + + + + Care Team Providers + +------+ + | Care Senior Report Developer Name | Role | Phone | [...] as of this encounter Progress Notes Interface, Mast Maker In - 03/06/2006 5:10 AM [facility] [place], [place] [address] or September 23, 1999 Renan Bright MD [address] [place] [address] RE: CARLINE MIN MR #: [id number] Dear Dr. Bright: I saw your patient, [...] and will be interviewed by our patient appointment coordinator. We will obtain some x-rays and labs to further screen her for candidacy. PLAN 1. The patient to meet with patient appointment coordinator today regarding IL-1 RA study. 2. Labs today to include CBC, liver function tests, C-reactive protein and erythrocyte sedimentation rate. 3. X-rays of the hands today. 4. 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 I would appreciate it if those results could be faxed to me at this clinic: [phone]. 5. She will be made a follow-up appointment either with me or as part of the above-mentioned study. Again, thank you for allowing me to participate in this Ms. Min's care and please call if you wish to discuss her case further. Sincerely, Ameya Steen M.D. Rheumatology Fellow TU / PHIL [id number] / [id number] / [id number] / [id number] signed by Interface, Mast Maker In at 03/06/2006 5:10 AM PSTdocume nted in this encounter Plan of Treatment Not on filedocumented as of this encounter Visit Diagnoses Not on filedocumented in this encounter"
--- OUTSIDE RECORDS SUMMARY | ~2019-09-02 | XMS | Encounter Summary ---
Demographics + + + | Address | [address] | | | [place] [address] | + + + | Home Phone [...] | | | | | [place] [address] | | + + + + + | Robson Min | ECON | Unknown | | + + + + + | Isabella Whitehead | ECON | Unknown | | + + + + + | Seven Neff | ECON | Unknown | | + + + + + Care Team Providers + +------+ + | Care Ice Hockey Coach Name | Role | Phone | + [...] + + | 01/19/ | Documentati | [facility] | Nora Francis, | Other (end of study) | | 2019 | on | CARDIOLOGY [place] | Technologist | | | | | [address] | | | | | | [facility] [place] | | | | | | [address] | | | | | | [phone] | | | +--------+ + + + [...] | + +---+---+---+ + + | Comments: 2/7/17: Currently using [employer] | [...] Date of Event Monitor: 01/19/19 Referring Physician: No Patient:Kait Sweeney Pako : 1970 Age: 48 y.o. female INDICATIONS: [...] [place] | | | | | | [address] | | | | | | | | +--------+---------+ + + + | 11/05/ | Office | Neurology | Tairq, | | | 2019 | Visit | | [address] | | | | | | [address] [place], | | | | | | [place] [address] | | | | | | [phone] | | | | | | | | +--------+---------+ + + + documented as of this encounter Visit Diagnoses + + | Diagnosis | + + | Palpitations | + + documented in this encounter
--- OUTSIDE RECORDS SUMMARY | ~2019-09-02 | XMS | Encounter Summary ---
Demographics + + + | Address | [address] | | | [place] [address] | + + + | Home Phone [...] | | | | | [place] [address] | | + + + + + | Robson Min | ECON | Unknown | | + + + + + | Isabella Whitehead | ECON | Unknown | | + + + + + | Seven Neff | ECON | Unknown | | + + + + + Care Team Providers + +------+ + | Care Bingo Clerk Name | Role | Phone | [...] [address] | | | | | [place], | [place] | | | | | [place] [address] | [address] | | | | | [phone] | | | +--------+ + + + [...] [place] | | | | | | [address] | | | | | | | | +--------+---------+ + + + | 11/05/ | Office | Neurology | Tariq, | | | 2019 | Visit | | [address] | | | | | | [address] [place], | | | | | | [place] [address] | | | | | | [phone] | | | | | | | | +--------+---------+ + + + documented as of this encounter Visit Diagnoses Not on filedocumented in this encounter"
--- OUTSIDE RECORDS SUMMARY | ~2019-09-02 | XMS | Encounter Summary ---
Demographics + + + | Address | [address] | | | [place] [address] | + + + | Home Phone [...] | | | | | [place] [address] | | + + + + + | Robson Min | ECON | Unknown | | + + + + + | Isabella Whitehead | ECON | Unknown | | + + + + + | Seven Neff | ECON | Unknown | | + + + + + Care Team Providers + +------+ + | Care Wood Cutter Name | Role | Phone | [...] | | status | [place], [place] | [address] Phone: | | | | | migrainosus | [address] | [phone] | | | | | Procedures | Phone: | Fax: | | | | | BOTOX | [phone] | [phone] | | | | | INJECTION | Fax: | | | | | | PAIN CLINIC | [phone] | | | | | | PROCEDURE [...] | | | DR [place], | [address] | (Primary Dx) | | | | [place] [address] | | | | | | [phone] | | | +--------+ + + + [...] [place] | | | | | | [address] | | | | | | | | +--------+---------+ + + + | 11/05/ | Office | Neurology | Tariq, | | | 2019 | Visit | | [address] | | | | | | [address] [place], | | | | | | [place] [address] | | | | | | [phone] | | | | | | | | +--------+---------+ + + + documented as of this encounter Procedures + +--------+ + + + | Procedure Name | Priori | Date/Time | Associated Diagnosis | Comments | | | ty | | | | + +--------+ + + + | FL CHEMODERVATE | Routin | 07/06/2019 | Intractable [...] | | (Comment | | Intramuscular, ONCE, [facility] 07/06/19 | | PM PDT | | | ) | | at 1630, For 1 dose | | | | | | + +--------+ +-------+------+ + +---+---+ | | | +---+---+ documented in this encounter
--- OUTSIDE RECORDS SUMMARY | ~2019-09-02 | XMS | Encounter Summary ---
Demographics + + + | Address | [address] | | | [place] [address] | + + + | Home Phone [...] | | | | | [place] [address] | | + + + + + | Robson Min | ECON | Unknown | | + + + + + | Isabella Whitehead | ECON | Unknown | | + + + + + | Seven Neff | ECON | Unknown | | + + + + + Care Team Providers + +------+ + | Care Exhibition Organiser Name | Role | Phone | + [...] | | | | | pain, | [address] | [address] | | | | | generalized | [address] | [place] | | | | | follow up | [place] | [place] [address] | | | | | abd pain, | [address] | Phone: | | | | | nause & | [place], [place] | [phone] | | | | | vomiting/per | [address] | Fax: | | | | | swathi/pcp | Phone: | [phone] | | | | | walker/moda/ | [phone] | | | | | | called for | | | | | | | referral | | | | | | | 10/04/13nns | | | | | | | Procedures | | | | | | | IN OFFICE | | | | | | [...] + | 11/01/ | Office | [facility] | Cecilio Amato MD | Nausea & vomiting | | 2014 | Visit | GASTROENTEROLOGY | [address] | (Primary Dx); IBS | | | | [address] [facility] | [place] | (irritable bowel | | | | [address] [place] [address] | [address] | syndrome) | | | | [address] | [phone] | | | | | [phone] | | | +--------+---------+ + + + [...] 50 mg by mouth 4 times daily. vawfntzqxf-kgusisw-ykbdkjlt (BUTALBITAL COMPOUND/ASA) per tablet One tablet by [...] pain Diabetes mellitus, type 2 ([facility]) Vitamin D deficiency Hypercholesterolemia Hypothyroidism Panic anxiety syndrome IBS (irritable bowel syndrome) Restless leg syndrome Urinary hesitancy Lumbago Nocturia Pyoderma gangreosum-LE Bipolar 1 disorder ([facility]) Hypertension Lymphedema Nausea and vomiting Reflux esophagitis GI bleeding Empyema lung ([facility]) 2005 right Knee pain CHRONIC [...] Ramos MD - 0 11/01/2013 12:00 AM [facility] GASTROENTEROLOGY [address] [facility] [address] [address] [place] [address] FAX: [phone] OFFICE VISIT OUTPATIENT GI FOLLOWUP CHIEF COMPLAINT: [...] I encouraged her to speak to her service car driver regarding finding an alternative medication and discontinuing [...] discuss stopping azathioprine and hydrocodone, with her service car driver. Cecilio Amato MD / RC JOB #: [id number] signed by Cecilio Amato MD at 11/02/2013 [...] [place] | | | | | | [address] | | | | | | | | +--------+---------+ + + + | 11/05/ | Office | Neurology | Tariq, | | | 2019 | Visit | | [address] | | | | | | [address] [place], | | | | | | [place] [address] | | | | | | [phone] | | | | | | | | +--------+---------+ + + + documented as of this encounter Visit Diagnoses + + | Diagnosis | + + | Nausea & vomiting - Primary Nausea with vomiting | + + | IBS (irritable bowel syndrome) Irritable bowel syndrome | + + documented in this encounter"
--- OUTSIDE RECORDS SUMMARY | ~2019-09-02 | XMS | Encounter Summary ---
Demographics + + + | Address | [address] | | | [place] [address] | + + + | Home Phone [...] | | | | | [place] [address] | | + + + + + Care Team Providers + +------+ + | Care Glost Placer Name | Role | Phone | + +------+ + PCP | Unavailable | + +------+ + Encounter Details +--------+ + + + + | Date | Type | Department | Care Team | Description | +--------+ + + + + | 10/24/ | Respiratory | | Other, Faculty | | | 2006 | Therapy | | [phone] | | +--------+ + + + + [...] | | | | | Y | SUPERVISOR FEED MILL | | | | + + + [...] [facility] | [address] | [place], [place] | | | DIAGNOSTICS - | [address] | [address] | | | PULMONARY FUNCTION | | | | + + + + + documented in this encounter Visit Diagnoses Not on filedocumented in this encounter"
--- OUTSIDE RECORDS SUMMARY | ~2019-09-02 | XMS | Encounter Summary ---
Demographics + + + | Address | [address] | | | [place] [address] | + + + | Home Phone [...] | | | | | [place] [address] | | + + + + + | Robson Min | ECON | Unknown | | + + + + + | Isabella Whitehead | ECON | Unknown | | + + + + + | Seven Neff | ECON | Unknown | | + + + + + Care Team Providers + +------+ + | Care Engineering Librarian Name | Role | Phone | + [...] | | | Pulmonology | airway | [address] | [address] | | | | | obstruction, | [address] | [place], | | | | | not | [place] | [place] [address] | | | | | elsewhere | [address] | Phone: | | | | | classified | [place] | [phone] | | | | | Procedures | [address] | Fax: | | | | | [place] OFFICE | Phone: | [phone] | | | | | OUTPATIENT | [phone] | | | | | | VISIT 25 | | | | | | | MINUTES | | | +--------+--------+ + + + + Encounter Details +--------+---------+ + + + | Date | Type | Department | Care Team | Description | +--------+---------+ + + + | 04/24/ | Office | [facility] [place] | Navdeep Grande, | Other nonspecific | | 2015 | Visit | PULMONARY [address] | MD [address] | abnormal finding of | | | | [place], | [place], [place] | lung field (Primary | | | | [place] [address] | [address] | Dx); COPD, mild | | | | [phone] | | (HCC); Chronic | | | | | | [...] not start to improve within 24 hours [address]163[address] [employer]. [address] [place] [address]. All righ ts reserved. This information is [...] pain Diabetes mellitus, type 2 ([facility]) Vitamin D deficiency Hypercholesterolemia Hypothyroidism Panic anxiety syndrome IBS (irritable bowel syndrome) Restless leg syndrome Urinary hesitancy Lumbago Nocturia Pyoderma gangreosum-LE Bipolar 1 disorder ([facility]) Hypertension Lymphedema Nausea and vomiting Reflux esophagitis GI bleeding Empyema lung ([facility]) 2005 right Knee pain CHRONIC [...] 4 times daily., Disp: , Rfl: ; rgpzvssftc-nifhhtm-paykzkdu (BUTALBITA L COMPOUND/ASA) per tablet, One tablet [...] [place] | | | | | | [address] | | | | | | | | +--------+---------+ + + + | 11/05/ | Office | Neurology | Tariq, | | | 2019 | Visit | | CLAUDIO [address]eg[address] | | | | | | [address] [facility] [place], | | | | | | [place] [address] | | | | | | [phone] | | | | | | | [...]
--- OUTSIDE RECORDS SUMMARY | ~2019-09-02 | XMS | Encounter Summary ---
Demographics + + + | Address | [address] | | | [place] [address] | + + + | Home Phone [...] | | | | | [place] [address] | | + + + + + Care Team Providers + +------+ + | Care Cork Molder Name | Role | Phone | + +------+ + PCP | Unavailable | + +------+ + Encounter Details +--------+ + + + + | Date | Type | Department | Care Team | Description | +--------+ + + + + | 10/31/ | Respiratory | | Other, Faculty | | | 2006 | Therapy | | [phone] | | +--------+ + + + + [...] Cabrera, | | | | | | CASH VAN SALESPERSON | | | | + + + [...] [facility] | [address] | [place] | | | DIAGNOSTICS - | [address] | [address] | | | PULMONARY FUNCTION | | | | + + + + + documented in this encounter Visit Diagnoses Not on filedocumented in this encounter"
--- OUTSIDE RECORDS SUMMARY | ~2019-09-02 | XMS | Encounter Summary ---
Demographics + + + | Address | [address] | | | [place] [address] | + + + | Home Phone [...] | | | | | [place] [address] | | + + + + + | Robson Min | ECON | Unknown | | + + + + + | Isabella Whitehead | ECON | Unknown | | + + + + + | Seven Neff | ECON | Unknown | | + + + + + Care Team Providers + +------+ + | Care Community Mental Health Social Worker Name | Role | Phone | + +------+ + PCP | Unavailable | + +------+ + Encounter Details +--------+ + + + + | Date | Type | Department | Care Team | Description | +--------+ + + + + | 12/13/ | Hospital | [facility] | Navdeep Grande, | | | 2011 | Encounter | MED CTR XRAY [address] | [address] | | | | | [place] | [place] | | | | | [place] [address] | [address] | | | | | [phone] | | | +--------+ + + + [...] | 0 | 10/08/19 | | | kdmakelxpf-privawy-y | every 6 hours as | | [...] [place] | | | | | | [address] | | | | | | | | +--------+---------+ + + + | 11/05/ | Office | Neurology | Tariq, | | | 2019 | Visit | | [address]A [address] | | | | | | [address] [facility], | | | | | | [place] [address] | | | | | | [phone] | | | | | | | [...] Performed At | + + + | [facility] Diagnostic Imaging Department | [facility] | | [address] | [facility] | | NONCONTRAST CT CHEST | DIAG IMG | | CLINICAL HISTORY: FOLLOW UP CAVITARY LESIONS RIGHT LUNG. | | | TECHNIQUE: Axial images are obtained from the thoracic inlet through | | | upper abdomen without the use of contrast. COMPARISON: August | | | 2011 from [place], [place]. October 2005 from [facility] | | | [facility]. FINDINGS: Thick-walled cavitary lesions | [...] | | 16:53 Transcribed Date/Time: 12/14/2011 17:08 Cashier Office: | | | <Electronically Signed by Ace Avery MD> 12/14/11 | | | 1754 | | + + + + + | Procedure Note | + + | Demario, Rad Conversion - 05/26/2013 5:[address] [facility] | | Diagnostic Imaging Department | | [address] | | | | | | | | NONCONTRAST CT CHEST | | | | CLINICAL HISTORY: FOLLOW UP CAVITARY LESIONS RIGHT LUNG. | | | | TECHNIQUE: Axial images are obtained from the thoracic inlet through upper | | abdomen without the use of contrast. | | | | COMPARISON: August 2011 from [place], [place]. October 2005 from [facility]. | | | | FINDINGS: Thick-walled [...] | Transcribed Date/Time: 12/14/2011 17:08 | | Cashier Office: | | <Electronically Signed by Ace Avery MD> 12/14/11 1754 | + + + +---------+ + + | Performing | Address | City/State/Zipcode | Phone Number | | Organization | | | | + +---------+ + + | [place] | | | | | [facility] | | | | + +---------+ + + documented in this encounter Visit Diagnoses Not on filedocumented in this encounter"
--- OUTSIDE RECORDS SUMMARY | ~2019-09-02 | XMS | Encounter Summary ---
Demographics + + + | Address | [address] | | | [place] [address] | + + + | Home Phone [...] | | | | | [place] [address] | | + + + + + | Robson Min | ECON | Unknown | | + + + + + | Isabella Whitehead | ECON | Unknown | | + + + + + | Seven Neff | ECON | Unknown | | + + + + + Care Team Providers + +------+ + | Care House Mover Supervisor Name | Role | Phone | [...] [address] | | | | | Wing [place], | [place] | | | | | [place] [address] | [address] | | | | | [phone] | | | +--------+ + + + [...] [place] | | | | | | [address] | | | | | | | | +--------+---------+ + + + | 11/05/ | Office | Neurology | Tariq, | | | 2019 | Visit | | [address]A [address] | | | | | [address] [place], | | | | | | [place] [address] | | | | | | [phone] | | | | | | | | +--------+---------+ + + + documented as of this encounter Visit Diagnoses Not on filedocumented in this encounter"
--- OUTSIDE RECORDS SUMMARY | ~2019-09-02 | XMS | Encounter Summary ---
Demographics + + + | Address | [address] | | | [place] [address] | + + + | Home Phone [...] | | | | | [place] [address] | | + + + + + | Robson Min | ECON | Unknown | | + + + + + | Isabella Whitehead | ECON | Unknown | | + + + + + | Seven Neff | ECON | Unknown | | + + + + + Care Team Providers + +------+ + | Care New Order Clerk Name | Role | Phone | [...] | Sleep | Diagnoses | Harjinder, | [facility] | | | Services | Medicine | Alveolar | MD Navdeep | [facility] | | | Required | | hypoventilat | [address] | Disorder [address] | | | | | ion JESUSITA and | [address] | [address] | | | | | COPD | [place], | [place], | | | | | overlap | [place] [address] | [place] [address] | | | | | syndrome | Phone: | Phone: | | | | | ([facility]) | [phone] | [phone] | | | | | | Fax: | Fax: | | | | | | [phone] | [phone] | +--------+ + + + + + [...] | | | Pulmonology | (chronic | [address] | [address] | | | | | obstructive | [address] | [place] | | | | | pulmonary | [place] | [place] [address] | | | | | disease) | [address] | Phone: | | | | | (HCC) | [place] | [phone] | | | | | Procedures | [address] | Fax: | | | | | F/U APPE[address] | Phone: | [phone] | | | | | DARRICK GRANDE | [phone] | | | | | | 11/19/17 | | | +--------+--------+ + + + + Encounter Details +--------+---------+ + + + | Date | Type | Department | Care Team | Description | +--------+---------+ + + + | 05/20/ | Office | [facility] | Navdeep Grande, | Alveolar | | 2019 | Visit | PULMONARY [address] | MD [address] | hypoventilation | | | | [place], | [place] | (Primary Dx); COPD, | | | | [place] [address] | [address] | mild ([facility]); Tobacco | | | | [phone] | | use disorder; | | | [...] 50,000 Units by mouth Once a w [place]., Disp: , Rfl: fluticasone-salmeterol (ADVAIR DISKUS) 250-50 [...] [place] | | | | | | [address] | | | | | | | | +--------+---------+ + + + | 11/05/ | Office | Neurology | Tariq, | | | 2019 | Visit | | [address] | | | | | | [address] [facility], | | | | | | [place] [address] | | | | | | [phone] | | | | | | | [...]
--- OUTSIDE RECORDS SUMMARY | ~2019-09-02 | XMS | Encounter Summary ---
Demographics + + + | Address | [address] | | | [place] [address] | + + + | Home Phone [...] | | | | | [place] [address] | | + + + + + Care Team Providers + +------+ + | Care Mold Carpenter Name | Role | Phone | + [...] | | | | | Cathryn Feldman [place], | | | | | | [place] [address] | | | +--------+--------+ + + + [...]
--- OUTSIDE RECORDS SUMMARY | ~2019-09-02 | XMS | Encounter Summary ---
Demographics + + + | Address | [address] | | | [place] [address] | + + + | Home Phone [...] | | | | | [place] [address] | | + + + + + Care Team Providers + +------+ + | Care Property Claim Rep Name | Role | Phone | + [...] as of this encounter Progress Notes Interface, Director Of Religious Activities In - 04/28/2006 1:02 AM PSTCLINIC DATE: [...] with Dr. Dawson. MD Letty Lipscomb M.D. Career Technical Education Teacher, Medicine Arthritis and Rheumatic Disease ALBERTO/eddie Electronically signed by Interface, Director Of Religious Activities In at 01/2007 1:02 AM PSTdocumented in this encounter Plan of Treatment Not on filedocumented as of this encounter Visit Diagnoses Not on filedocumented in this encounter"
--- OUTSIDE RECORDS SUMMARY | ~2019-09-02 | XMS | Encounter Summary ---
Demographics + + + | Address | [address] | | | [place] [address] | + + + | Home Phone [...] | | | | | [place] [address] | | + + + + + | Robson Min | ECON | Unknown | | + + + + + | Isabella Whitehead | ECON | Unknown | | + + + + + | Seven Nfef | ECON | Unknown | | + + + + + Care Team Providers + +------+ + | Care Social Science Analyst Name | Role | Phone | + +------+ + PCP | Unavailable | + +------+ + Encounter Details +--------+ + + + + | Date | Type | Department | Care Team | Description | +--------+ + + + + | 04/06/ | Hospital | [facility] | | | | 2000 | Encounter | MED CTR SLEEP | | | | | | CENTER [address] | | | | | | [place] | | | | | | [address] | | | | | | [phone] | | | +--------+ + + + [...] | | | | | [place] | | | | | | [address] | | | | | | | | +--------+---------+ + + + | 11/05/ | Office | Neurology | Tariq, | | | 2019 | Visit | | [address] | | | | | | [address] [place], | | | | | | [place] [address] | | | | | | [phone] | | | | | | | | +--------+---------+ + + + documented as of this encounter Visit Diagnoses Not on filedocumented in this encounter"
--- OUTSIDE RECORDS SUMMARY | ~2019-09-02 | XMS | Encounter Summary ---
Demographics + + + | Address | [address] | | | [place] [address] | + + + | Home Phone | | + + + | Preferred Language | Unknown | + + + | Marital Status | Single | + + + | Lutheran Affiliation | Unknown | + + + | Race | Unknown | + + + | Ethnic Group | Unknown | + + + Author + + + | Author | [facility] | | | and [place] | + + + | Organization | [facility] | | [...] | | | | | [place] [address] | | + + + + + | Robson Min | ECON | Unknown | | + + + + + | Isabella Whitehead | ECON | Unknown | | + + + + + | Seven Neff | ECON | Unknown | | + + + + + Care Team Providers + +------+ + | Care Rack Room Worker Name | Role | Phone | [...] | | [place], [place] | [place] [address] | ([facility]) (Primary Dx); | | 2018 | | [address] | [phone] | Pneumonia of both | | | | [phone] | | lungs due to | | | | | Aidan Dumont, | infectious organism, | | | | | MD [address] | unspecified part of | | | | | [place] [address] | lung; Acute | | | | | [phone] | metabolic | | | | | | encephalopathy; | | | | | Dashawn Nettles, | Acute renal failure | | | | | MD [address] | with other specified | | | | | [place] [address] | pathological lesion | | | | | [phone] | in kidney (HCC) | | | [...] None Disposition: Home Follow-Up Plans: TIMOTHY Singleton [address] [place] [address] In 1 [...] times per week for 4 wee ks. BATH ATTENDANT for to be seen ___ times per week for ___ weeks. 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 COVER INSPECTOR for to b e seen ___ times [...] 08/19/2018 Co-signer: Dashawn Nettles MD NPI # [id number] Date: 08/19/2018 (Only need MD jansen if a PA/BONE CHAR PULLER referring) Examples: ? Clinical finding to support the need for services: Requires nursing home/outside physical damage appraiser apy for ? Evidence of Homebound status: [...] valid medical license in the state of [place] (this wi ll be the physician who will sign Home Health POC) Electronically signed by: Dashawn Nettles 08/19/2018 8:50 [facility] Time spent discharging this patient: 20 minutes spent caring for this patient. documented in this encounter Discharge Instructions AttachmentsThe following attachments cannot be sent through Care Everywhere.Adult, Pneumoni a (Liberian)Smoking,Health Effects of (Liberian)Smoking Cessation (Liberian)documented in thi s encounter Medications at Time [...] signed by: Dashawn Nettles 08/18/2018 10:38 [facility] Portions of this chart may have [...] signed by: Dashawn Nettles 08/17/2018 8:50 [facility] Portions of this chart may have [...] was completed using: -medication list faxed from [facility] Major discrepancies noted: patient was not coherent enough to obtain an accurate medication list from her at the time of admission and subsequently has ended up intubated. Obtained a medication fill history of TixAlertAvtodoria and updated the medication from the most recent fill his tory. Patient is currently up to date on her pneumococcal vaccine. PPSV23: 04/04/09, 03/19/13, 01/10/15 PCV13: 03/19/13, 04/24/14 Please see [facility] med list for updated medication list. Electronically [...] signed by: Dashawn Nettles 08/16/2018 8:24 [facility] Portions of this chart may have [...] [place] | | | | | | [address] | | | | | | | | +--------+---------+ + + + | 11/05/ | Office | Neurology | Tariq, | | | 2019 | Visit | | [address] | | | | | | [address] [facility], | | | | | | [place] [address] | | | | | | [phone] | | | | | | | [...] + + | [facility] | [address] | [place] | [phone] | | HOSPITAL LAB[facility]ATORY | | [address] | | + + + + [...] + + | [place] [facility] | [address] | [place] | [phone] | | HOSPITAL LAB[facility]ATORY | | [address] | | + + + + + [...] + + | [place] [facility] | [address] | [place] | [phone] | | HOSPITAL LAB[facility]ATORY | | [address] | | + + + + + [...] + + | [place] [facility] | [address] | [place] | [phone] | | HOSPITAL LAB[facility]ORY | | [address] | | + + + + + [...] + + | [place] [facility] | [address] | [place] | [phone] | | HOSPITAL LAB[facility]ATORY | | [address] | | + + + + + [...] + + | [facility] | [address] | [place] | [phone] | | HOSPITAL LAB[facility]ORY | | [address] | | + + + + [...] + + | [place] [facility] | [address] | [place] | [phone] | | HOSPITAL LAB[facility]ORY | | [address] | | + + + + + [...] + + | [place] [facility] | [address] | [place] | [phone] | | HOSPITAL LAB[facility]ORY | | [address] | | + + + + + [...] | mL/min/1.73m2 | [facility] | | | [facility] | | | [facility] | | | [...] + + | [place] [facility] | [address] | [place] | [phone] | | HOSPITAL LAB[facility]ORY | | [address] | | + + + + + [...] + + | [place] [facility] | [address] | [place] | [phone] | | HOSPITAL LAB[facility]ORY | | [address] | | + + + + + [...] + + | [place] [facility] | [address] | [place] | [phone] | | HOSPITAL LAB[facility]ORY | | [address] | | + + + + + [...] + + | [place] [facility] | [address] | [place] | [phone] | | HOSPITAL [facility] | | [address] | | + + + + + [...] + + | [place] [facility] | [address] | [place] | [phone] | | HOSPITAL [facility] | | [address] | | + + + + + [...] + + + + + | [place] | [address] | [place] | [phone] | | HOSPITAL [facility] | | [address] | | + + + + + [...] + + | [place] [facility] | [address] | [place] | [phone] | | HOSPITAL LAB[facility] | | [address] | | + + + + + [...] + + | [place] [facility] | [address] | [place] | [phone] | | HOSPITAL [facility] | | [address] | | + + + + + [...] + + | [facility] | [address] | [place] | [phone] | | HOSPITAL LAB[facility]ORY | | [address] | | + + + + + [...] | mL/min/1.73m2 | [facility] | | | [facility] | RATE,ESTIMATED | | HOSPITAL | | | | mL/min/1.87b2Tmsi than | | LABORATORY | | | [...] + + | [place] [facility] | [address] | [place] | [phone] | | HOSPITAL LAB[facility]ATORY | | [address] | | + + + + + [...] + + | [place] | [address] | [place] | [phone] | | HOSPITAL LAB[facility]ORY | | [address] | | + + + + + [...] + + | [place] | [address] | [place] | [phone] | | HOSPITAL LAB[facility]ORY | | [address] | | + + + + + [...] + + | [place] | [address] | [place] | [phone] | | HOSPITAL LAB[facility] | | [address] | | + + + + + [...] + + | [facility] | [address] | [place] | [phone] | | HOSPITAL [facility] | | [address] | | + + + + + [...] + + | [place] | [address] | [place] | [phone] | | HOSPITAL LAB[facility]ORY | | [address] | | + + + + + [...] + + | [place] [facility] | [address] | [place] | [phone] | | [facility] | | [address] | | + + + + + [...] + + | [place] | [address] | [place] | [phone] | | HOSPITAL LAB[facility]ORY | | [address] | | + + + + + [...] + + | [place] | [address] | [place] | [phone] | | HOSPITAL LAB[facility]ORY | | [address] | | + + + + + [...] + + | [facility] | [address] | [place] | [phone] | | HOSPITAL LAB[facility]ORY | | [address] | | + + + + + [...] 0.0 | 0.0 - 7.0 % | [facility] | | | Eosinophils | | | [...] + + | [place] [facility] | [address] | [place] | [phone] | | HOSPITAL LAB[facility] | | [address] | | + + + + + [...] | mL/min/1.73m2 | [facility] | | | [facility] | | | [facility] | | | [...] + + | [place] [facility] | [address] | [place] | [phone] | | HOSPITAL LAB[facility]ORY | | [address] | | + + + + + [...] 95 | 95 - 99 % | AILCE | | | Saturation, | | | [...] + + | [place] | [address] | [place] | [phone] | | HOSPITAL LAB[facility]ORY | | [address] | | + + + + + [...] + + | [place] | [address] | [place] | [phone] | | HOSPITAL LAB[facility] | | [address] | | + + + + + [...] + + | [place] [facility] | [address] | [place] | [phone] | | HOSPITAL [facility] | | [address] | | + + + + + [...] + + | [place] [facility] | [address] | [place] | [phone] | | HOSPITAL LAB[facility] | | [address] | | + + + + + [...] + + | [place] [facility] | [address] | [place] | [phone] | | HOSPITAL LAB[facility]ORY | | [address] | | + + + + + [...] | + + + + + | [facility] | [address] | [place] | [phone] | | HOSPITAL LAB[facility]ORY | | [address] | | + + + + + [...] + + | [facility] | [address] | [place] | [phone] | | HOSPITAL LAB[facility]ORY | | [address] | | + + + + + [...] + + | [place] | [address] | [place] | [phone] | | HOSPITAL LAB[facility]ORY | | [address] | | + + + + + [...] + + | [place] | [address] | [place] | [phone] | | HOSPITAL LAB[facility] | | [address] | | + + + + + [...] + + | [place] [facility] | [address] | [place] | [phone] | | HOSPITAL LAB[facility]ORY | | [address] | | + + + + + ECG 12 lead (08/15/2018 8:53 AM PDT) + + | Specimen | + + | | + + + + + | Narrative | Performed At | + + + | Heart Rate: 78 | [facility] | | bpmQRS Interval: 94 msQT Interval: 436 msQTC Interval: 497 msP [place]: | TRACEMASTER | | 18 degQRS [place]: -32 degT Wave [place]: 37 degP-R Interval: 244 msec- | | | ABNORMAL ECG -SINUS RHYTHMFIRST DEGREE AV BLOCKCONSIDER LEFT ATRIAL | | | ABNORMALITYLEFT AXIS DEVIATIONBORDERLINE PROLONGED QT INTERVAL | | |QRS [place]: -32 deg | | |T Wave [place]: 37 deg | | |P-R Interval: 244 [...] the attending | LABORATORY | | physician. Unih-iut-dgumgne drugs may cross react with some methods. [...] + + | [facility] | [address] | [place] | [phone] | | HOSPITAL LABORATORY | | [address] | | + + + + + [...] - 1.030 | [place] | | | [place], | | | [facility] | | | [...] + + | [facility] | [address] | [place] | [phone] | | HOSPITAL LAB[facility]ORY | | [address] | | + + + + + [...] + + | [facility] | [address] | [place] | [phone] | | HOSPITAL LAB[facility]ORY | | [address] | | + + + + + [...] + + | [facility] | [address] | [place] | [phone] | | HOSPITAL LAB[facility]ORY | | [address] | | + + + + + [...] + + | [facility] | [address] | [place] | [phone] | | HOSPITAL LAB[facility]ORY | | [address] | | + + + + + [...] + + | [facility] | [address] | [place] | [phone] | | HOSPITAL LAB[facility]ORY | | [address] | | + + + + + [...] + + | [facility] | [address] | [place] | [phone] | | HOSPITAL LAB[facility]ORY | | [address] | | + + + + + [...] + + | [facility] | [address] | [place] | [phone] | | HOSPITAL LAB[facility]ORY | | [address] | | + + + + + [...] | cutoff point for the diagnosis of [place] is 0.8 ng/mL for the Troponin I | | | method. | | + + + + + + + + | Performing | Address | City/State/Zipcode | Phone Number | | Organization | | | | + + + + + | [facility] | [address] | [place] | [phone] | | HOSPITAL LAB[facility]ATORY | | [address] | | + + + + + [...] | mL/min/1.73m2 | [facility] | | | [facility] | RATE,ESTIMATED | | HOSPITAL | | | | mL/min/1.61t4Nfzf than | | LABORATORY | | | [...] + + | [facility] | [address] | [place] | [phone] | | HOSPITAL LAB[facility]ATORY | | [address] | | + + + + + [...] + + | [facility] | [address] | [place] | [phone] | | HOSPITAL LAB[facility]ATORY | | [address] | | + + + + + [...] | | First dose on [facility] 08/18/18 at 1030 | | AM [...] | | | | AC, NPO, Daytime 3901-5347 Use | | | | | | | NIGHT DOSE for doses scheduled: | | | | | | | HS, 3AM, Nighttime 0107-4283 | | | | | | | [...] | | First dose on [facility] 08/18/18 at 1030, | | | [...] | | | dose on [facility] 08/18/18 at 1100 | | AM [...] | | First dose on [facility] 08/18/18 at 1030 | | AM [...]
--- OUTSIDE RECORDS SUMMARY | ~2019-09-02 | XMS | Encounter Summary ---
Demographics + + + | Address | [address] | | | [place] [address] | + + + | Home Phone [...] | | | | | [place] [address] | | + + + + + Care Team Providers + +------+ + | Care Mannequin Maker Name | Role | Phone | [...] | | | | | Cathryn [place]man [place], | | | | | | [place] [address] | | | +--------+ + + + [...] | | Patient: CARLINE MIN Med Rec: [id number] Sex F Bdate: 1970 | | Date/Time Data | | Entered Into [facility] | | Anesth PostOp | | Surgery Date [id number] 10/28/05 11:05 | | Anesthesiologist BHAVANA QUIÑONES 10/28/05 11:05 | | Resident Anesthesiolog CARRIE GONZALES 10/28/05 11:05 | | | + + documented in this encounter Visit Diagnoses Not on filedocumented in this encounter"
--- OUTSIDE RECORDS SUMMARY | ~2019-09-02 | XMS | Encounter Summary ---
Demographics + + + | Address | [address] | | | [place] [address] | + + + | Home Phone [...] | | | | | [place] [address] | | + + + + + Care Team Providers + +------+ + | Care Oven Drier Tender Name | Role | Phone | + +------+ + PCP | Unavailable | + +------+ + Encounter Details +--------+ + + + + | Date | Type | Department | Care Team | Description | +--------+ + + + + | 10/31/ | Respiratory | | Other, Faculty | | | 2006 | Therapy | | [phone] | | +--------+ + + + + [...] Cabrera, | | | | | | RESPIRATORY MEDICINE PHYSICIAN | | | | + + [...] [facility] | [address] | [place], [place] | | | DIAGNOSTICS - | [place] | [address] | | | PULMONARY FUNCTION | | | | + + + + + documented in this encounter Visit Diagnoses Not on filedocumented in this encounter"
--- OUTSIDE RECORDS SUMMARY | ~2019-09-02 | XMS | Encounter Summary ---
Demographics + + + | Address | [address] | | | [place] [address] | + + + | Home Phone [...] | | | | | [place] [address] | | + + + + + | Robson Min | ECON | Unknown | | + + + + + | Isabella Whitehead | ECON | Unknown | | + + + + + | Seven Neff | ECON | Unknown | | + + + + + Care Team Providers + +------+ + | Care Dental Practice Manager Name | Role | Phone | + +------+ + | Bart Ba DO | PCP | | + +------+ + Encounter Details +--------+ + + + + | Date | Type | Department | Care Team | Description | +--------+ + + + + | 08/25/ | Hospital | [facility] | Navdeep Grande, | COPD (chronic | | 2013 | Encounter | MED CTR PULMONARY | MD [address] | obstructive | | | | FUNCTION [address] | [place] | pulmonary disease) | | | | [place], | [address] | ([facility]) | | | | [place] [address] | | | | | | [phone] | | | +--------+ + + + [...] | 0 | 10/08/19 | | | dxgruamjyi-lixvzum-j | every 6 hours as | | [...] [place] | | | | | | [address] | | | | | | | | +--------+---------+ + + + | 11/05/ | Office | Neurology | Tariq, | | | 2019 | Visit | | [address] | | | | | | [address] [facility], | | | | | | [place] [address] | | | | | | [phone] | | | | | | | [...] | | ([facility]) | | + +--------+ + + [...] MD 08/25/2013 15:49 [facility] | | | [facility] [...] | | Navdeep Grande MD 08/25/2013 15:49[facility] | |IMPRESSION: Spirometry is consistent with normal physiology. Lung volume testing is consist ent with normal physiology. Diffusion capacity is mildly reduced and was not corrected for m easured hemoglobin. | | | |No prior pulmonary function tests available for comparison | | | |Test performed: 08/25/13 | |Electronically signed by: Navdeep Grande MD 08/25/2013 15:49 | |[facility] | + + documented in this encounter Visit Diagnoses + + | Diagnosis | + + | COPD (chronic obstructive pulmonary disease) (HCC) Chronic airway obstruction, not | | elsewhere classified | + + documented in this encounter"
--- OUTSIDE RECORDS SUMMARY | ~2019-09-02 | XMS | Encounter Summary ---
Demographics + + + | Address | [address] | | | [place] [address] | + + + | Home Phone [...] | | | | | [place] [address] | | + + + + + | Robson Min | ECON | Unknown | | + + + + + | Isabella Whitehead | ECON | Unknown | | + + + + + | Seven Neff | ECON | Unknown | | + + + + + Care Team Providers + +------+ + | Care Clock Smith Name | Role | Phone | + [...] | Sleep | Diagnoses | Harjinder, | [facility] | | | Services | Medicine | Sleep | MD Navdeep | Center [address] | | | Required | | apnea, | [address] | | | | | unspecified | [address] | [place], | | | | | type | [place], | [place] [address] | | | | | Alveolar | [place] [address] | Phone: | | | | | hypoventilat | Phone: | [phone] | | | | | ion | [phone] | Fax: | | | | | Procedures | Fax: | [phone] | | | | | [place] | [phone] | | | | | | 6/>YRS [...] + + | 11/22/ | Hospital | [facility] | Navdeep Grande, | Sleep apnea, | | 2018 - | Encounter | MED CTR SLEEP | MD Cely GORE | unspecified type; | | | | [place] [address] | [place] | Alveolar | | 11/23/ | | [place] | [address] | hypoventilation; | | 2018 | | [address] | | COPD, mild (HCC) | | | | [phone] | | | +--------+ + + + [...] [place] | | | | | | [address] | | | | | | | | +--------+---------+ + + + | 11/05/ | Office | Neurology | Tariq, | | | 2020 | Visit | | Theo, [address] | | | | | | [address] [facility], | | | | | | [place] [address] | | | | | | [phone] | | | | | | | [...]
--- OUTSIDE RECORDS SUMMARY | ~2019-09-02 | XMS | Encounter Summary ---
Demographics + + + | Address | [address] | | | [place] [address] | + + + | Home Phone [...] | | | | | [place] [address] | | + + + + + Care Team Providers + +------+ + | Care Machine Heel Seat Fitter Name | Role | Phone | + +------+ + PCP | Unavailable | + +------+ + Encounter Details +--------+ + + + + | Date | Type | Department | Care Team | Description | +--------+ + + + + | 12/07/ | Results | [facility] | Kacy Caba, | | | 2002 | Only | [facility] at [facility] | [address] | | | | | [address] | [address] | | | | | [address] | [place] [address] | | | | | Mailcode: BAUTISTA Stewart | | | | | | [place] | | | | | | [place], [place] | | | | | | [address] | | | | | | [phone] | | | +--------+ + + + [...] | | + +---------+ + + | [facility] DEPARTMENT OF | | | | | RADIOLOGY | | | | + +---------+ + + documented in this encounter Visit Diagnoses Not on filedocumented in this encounter"
--- OUTSIDE RECORDS SUMMARY | ~2019-09-02 | XMS | Encounter Summary ---
Demographics + + + | Address | [address] | | | [place] [address] | + + + | Home Phone [...] | | | | | [place] [address] | | + + + + + | Robson Min | ECON | Unknown | | + + + + + | Isabella Whitehead | ECON | Unknown | | + + + + + | Seven Neff | ECON | Unknown | | + + + + + Care Team Providers + +------+ + | Care Low Voltage Technician Name | Role | Phone | + +------+ + PCP | Unavailable | + +------+ + Encounter Details +--------+ + + + + | Date | Type | Department | Care Team | Description | +--------+ + + + + | 02/21/ | Hospital | [facility] | Neno Walker | | | 2000 | Encounter | MED CTR SLEEP | MD Srinivas [address] | | | | | [address] [place] | [place] [facility] | | | | | [place], [place] | [place] [address] | | | | | [address] | [phone] | | | | | [phone] | | | +--------+ + + + [...] [place] | | | | | | [address] | | | | | | | | +--------+---------+ + + + | 11/05/ | Office | Neurology | Tariq, | | | 2019 | Visit | | [address] | | | | | [address] [place], | | | | | | [place] [address] | | | | | | [phone] | | | | | | | | +--------+---------+ + + + documented as of this encounter Visit Diagnoses Not on filedocumented in this encounter"
--- OUTSIDE RECORDS SUMMARY | ~2019-09-02 | XMS | Encounter Summary ---
Demographics + + + | Address | [address] | | | [place] [address] | + + + | Home Phone [...] | | | | | [place] [address] | | + + + + + | Robson Min | ECON | Unknown | | + + + + + | Isabella Whitehead | ECON | Unknown | | + + + + + | Seven Neff | ECON | Unknown | | + + + + + Care Team Providers + +------+ + | Care Nursery Hand Name | Role | Phone | [...] | Telephone | [facility] | Nvadeep Grande, | Results (nocturnal | | 2014 | | PULMONARY [address] | MD [address] | oximetry on room | | | | [place], | [place], [place] | air) | | | | [place] [address] | [address] | | | | | [phone] | | | +--------+ + + + [...] [place] | | | | | | [address] | | | | | | | | +--------+---------+ + + + | 11/05/ | Office | Neurology | Tariq, | | | 2019 | Visit | | ANGELA Venegas [address] | | | | | [address] [place], | | | | | | [place] [address] | | | | | | [phone] | | | | | | | | +--------+---------+ + + + documented as of this encounter Visit Diagnoses Not on filedocumented in this encounter"
--- OUTSIDE RECORDS SUMMARY | ~2019-09-02 | XMS | Encounter Summary ---
Demographics + + + | Address | [address] | | | [place] [address] | + + + | Home Phone [...] | | | | | [place] [address] | | + + + + + | Robson Min | ECON | Unknown | | + + + + + | Isabella Whitehead | ECON | Unknown | | + + + + + | Seven Neff | ECON | Unknown | | + + + + + Care Team Providers + +------+ + | Care Senior Professional Services Consultant Name | Role | Phone | [...] | (Primary Dx) | | | | [place], | | | | | | [place] [address] | | | | | | [phone] | | | +--------+ + + + [...] [place] | | | | | | [address] | | | | | | | | +--------+---------+ + + + | 11/05/ | Office | Neurology | Tariq, | | | 2019 | Visit | | [address]A [address] | | | | | [address] [place], | | | | | | [place] [address] | | | | | | [phone] | | | | | | | | +--------+---------+ + + + documented as of this encounter Results XR Chest PA and Lateral (04/04/2012 12:25 PM PST) + + | Specimen | + + | | + + + + + | Narrative | Performed At | + + + | [facility] | [place] | | Department [address] | [facility] | | [ rep [address]] [ rep [facility] | | st zip] Signed | - IMAGING | | | | | Patient Name: CARLINE MIN Physician: | | | RODRI : 1970 Age: 41 Sex: F Unit #: [id number] | | | Exam Date: 04/04/12 Location: [facility] – [place] | | | Report #: [id number] Page: | | | %(RAD)RES..mtdd.print.filter("pg") of %(RAD) | | | RES..mtdd.print.filter("tpg") | | | | | | Accession Number: [id number] | | | CHEST X-RAY, 04/04/2012 CLINICAL [...] | | | Transcribed Date/Time: 04/04/2012 15:34 Software Security Consultant: | | | <<Signature on File>> | | | Magdy | | | MD Shaun04/05/12 0055 <Electronically signed by Magdy Dunn MD> | | | Magdy Dunn MD 04/04/12 1225 Software Security Consultant: [employer] | | | Hewwiijgjpmar64/17/12 1534 Navdeep Grande MD | | | | | + + + + + + + + | Performing | Address | City/State/Zipcode | Phone Number | | Organization | | | | + + + + + | [address] | [address] | [place] | [phone] | | [facility] | | [address] | | | - IMAGING | | | | + + + + + documented in this encounter Visit Diagnoses + + | Diagnosis | + + | Abnormal chest CT - Primary Nonspecific (abnormal) findings on radiological and other | | examination of other intrathoracic organs | + + documented in this encounter
--- OUTSIDE RECORDS SUMMARY | ~2019-09-02 | XMS | Encounter Summary ---
Demographics + + + | Address | [address] | | | [place] [address] | + + + | Home Phone [...] | | | | | [place] [address] | | + + + + + | Robson Min | ECON | Unknown | | + + + + + | Isabella Whitehead | ECON | Unknown | | + + + + + | Seven Neff | ECON | Unknown | | + + + + + Care Team Providers + +------+ + | Care Addiction Professional Name | Role | Phone | [...] | | | DR [address] [place], | [address] | | | | | [place] [address] | | | | | | [phone] | | | +--------+ + + + [...] [place] | | | | | | [address] | | | | | | | | +--------+---------+ + + + | 11/05/ | Office | Neurology | Tariq, | | | 2019 | Visit | | [address]A [address] | | | | | | [address] [place], | | | | | | [place] [address] | | | | | | [phone] | | | | | | | | +--------+---------+ + + + documented as of this encounter Visit Diagnoses Not on filedocumented in this encounter"
--- OUTSIDE RECORDS SUMMARY | ~2019-09-02 | XMS | Encounter Summary ---
Demographics + + + | Address | [address] | | | [place] [address] | + + + | Home Phone [...] | | | | | [place] [address] | | + + + + + | Robson Min | ECON | Unknown | | + + + + + | Isabella Whitehead | ECON | Unknown | | + + + + + | Seven Neff | ECON | Unknown | | + + + + + Care Team Providers + +------+ + | Care Cloth Coverer Name | Role | Phone | [...] Medicine | Nocturnal | Neno Benito | [place] [address] | | | Required | | hypoxia | MD S[address] | [place] | | | | | Chronic | [place] | [place], | | | | | obstructive | [facility] | [place] [address] | | | | | pulmonary | [place], [place] | Phone: | | | | | disease, | [address] | [phone] | | | | | unspecified | Phone: | Fax: | | | | | COPD type | [phone] | [phone] | | | | | (HCC) | Fax: | | | | | | Procedures | [phone] | | | | | | [place] POLYSOM | | | | | | [...] + + | 10/26/ | Hospital | [facility] | Neno Walker | Nocturnal hypoxia; | | 2019 - | Encounter | MED CTR SLEEP | MD Srin[address] | Chronic obstructive | | | | [place] [address] | [address] [place] | pulmonary disease, | | 10/27/ | | [place] | [place] [address] | unspecified COPD | | 2019 | | [address] | [phone] | type (HCC) | | | | [phone] | | | +--------+ + + + [...] [place] | | | | | | [address] | | | | | | | | +--------+---------+ + + + | 11/05/ | Office | Neurology | Tariq, | | | 2019 | Visit | | [address]A [address] | | | | | | [address] [facility], | | | | | | [place] [address] | | | | | | [phone] | | | | | | | [...] Melly Caceres Sleep | | | [place] [address] | | | Polysomnogram Report on Kait [...] [place] | | | Jr. Walker MD, [facility]PITALSMMedical DirectorCameron Sharmila Morris Sleep | | | Disorders [facility], | | | WAClinical Subassembler of MedicineLDS Hospital | | | [place], [place] | | [...] | | | |Neno Walker Jr., MD, [facility] | | |Fish Processing Supervisor | | |[facility] | | |[facility] | | |[place] | | |Clinical surgical aides teacher | | |[facility] | | |[place] | | + + + + + | Procedure Note | + + | Neno Walker Jr., MD - 10/28/2018 10:42 AM PDT Melly Caceres Sleep | | Disorders [place], [place] [address]Tajvsrbdwtovt Report on | | Kait Min performed [...] sleeping.Neno Walker Jr., MD, | | FAASMMedical DirectorVantage Point Behavioral Health Hospital Sleep Disorders [facility] | | [facility] GAClinical Subassembler of MedicineLDS Hospital | | [place], [place] | |Fish Processing Supervisor | |[facility] | |[facility] | |[place] | |Clinical surgical aides teacher | |[facility] | |[place], [place] | + + documented in this encounter Visit Diagnoses + + | Diagnosis | + + | Nocturnal hypoxia Hypoxemia | + + | Chronic obstructive pulmonary disease, unspecified COPD type (HCC) | + + documented in this encounter"
--- OUTSIDE RECORDS SUMMARY | ~2019-09-02 | XMS | Encounter Summary ---
Demographics + + + | Address | [address] | | | [place] [address] | + + + | Home Phone [...] | | | | | [place] [address] | | + + + + + | Robson Min | ECON | Unknown | | + + + + + | Isabella Whitehead | ECON | Unknown | | + + + + + | Seven Neff | ECON | Unknown | | + + + + + Care Team Providers + +------+ + | Care Churn Driller Name | Role | Phone | [...] Medicine | [place] | Neno Benito | [place] [address] | | | Required | | (obstructive | MD [address] | [place] | | | | | sleep | [place] | [place], | | | | | apnea) | [facility] | [place] [address] | | | | | Nocturnal | [place], [place] | Phone: | | | | | oxygen | [address] | [phone] | | | | | desaturation | Phone: | Fax: | | | | | E66.2 | [phone] | [phone] | | | | | (ICD-10-CM) | Fax: | | | | | | - [phone] | [phone] | | | | | | (ICD-9-CM) [...] | | | | | | | [place] | | | | | | [...] + + | 09/21/ | Hospital | [facility] | Neno Walker | [place] (obstructive | | 2019 - | Encounter | MED CTR SLEEP | MD Srinivas [address] [place] | sleep apnea); | | | | [place] [address] | [address] [place] | Obesity | | 09/22/ | | [place], [place] | [place] [address] | hypoventilation | | 2019 | | [address] | [phone] | syndrome (HCC); | | | | [phone] | | Nocturnal oxygen | | | [...] [place] | | | | | | [address] | | | | | | | | +--------+---------+ + + + | 11/05/ | Office | Neurology | Tariq, | | | 2019 | Visit | | ANGELA Ven[address]as [address] | | | | | [address] [place], | | | | | | [place] [address] | | | | | | [phone] | | | | | | | [...] Melly Caceres Sleep | | | [place] [address] | | | Polysomnogram Report on Kait [...] | | Neno Walker Jr., MD, FAASMMedical DirectorPromedica Defiance Regional Hospitalariela Doll | | | [facility] CenterGr[facility] | | | [place] Trestle Mechanic of MedicineOrem Community Hospital | | | [place], [place] | | |The kimmy oxygen saturation [...] | | | |Neno Walker Jr., MD, [facility] | | |Spice Miller | | |[facility] | | |[facility] | | |[place] | | |Clinical pathology technologist | | |[facility] | | |[place], [place] | | + + + + + | Procedure Note | + + | Neno Walker Jr., MD - 09/30/2018 10:38 AM PDT Melly Caceres Sleep | | Disorders [place], [place] [id number] Report on | | Kait Min performed [...] | | COPD.Neno Walker Jr., MD, FAASMMedical DirectorPromedica Defiance Regional Hospitalariela Caceres Sleep | | Disorders CenterProCapital Medical CenterWalnd [place]Clinical Associate | | Professor of MedicineNapp[place], [place] | |Spice [place] | |Melly Doll [facility] | |[facility] | |[place] | |Clinical pathology technologist | |[facility] | |[place], [place] | + + POC Blood Gases [...] [address] | [place] | [phone] | | [facility] | | [address] | | | - LABORATORY | | [...]
--- OUTSIDE RECORDS SUMMARY | ~2019-09-02 | XMS | Encounter Summary ---
Demographics + + + | Address | [address] | | | [place] [address] | + + + | Home Phone [...] | | | | | [place] [address] | | + + + + + Care Team Providers + +------+ + | Care Shaving Machine Operator Name | Role | Phone [...] as of this encounter Discharge Summaries Interface, Wood Ski Maker In - 01/21/2006 6:22 AM PDT [id number] LUZ CROWLEY [id number] Admission Date: 10/21/2005 Discharge Date: 11/03/2005 Staff Physician: Anibal Starr M.D. Principal Final Diagnosis: Right fibrothorax. Additional Diagnoses: 1. Psychogenic polydipsia. 2. Diabetes mellitus. 3. Rheumatoid arthritis. 4. Hypertension. Principal Procedure: Right thoracotomy and decortication. Additional Procedures: 1. Epidural catheter placement. 2. Endocrine consult. 3. Pain Service consult. 4. RT consult. 5. PT/OT consult. Reason for Admission: The patient was transferred to [facility] from an outside hospital for management of [...] 3 L of water a day. The surface grinder tender ultimately deemed this to be a psychogenic [...] within 1 week. Valerie Stone M.D. / [id number] / [id number] / [id number] / Electronically signed by Anibal Starr 01-20-2006 04:02:17 PM documented i n this encounter Plan of Treatment Not on filedocumented as of this encounter Visit Diagnoses Not on filedocumented in this encounter"
--- OUTSIDE RECORDS SUMMARY | ~2019-09-02 | XMS | Encounter Summary ---
Demographics + + + | Address | [address] | | | [place] [address] | + + + | Home Phone [...] | | | | | [place] [address] | | + + + + + | Robson Min | ECON | Unknown | | + + + + + | Isabella Whitehead | ECON | Unknown | | + + + + + | Seven Neff | ECON | Unknown | | + + + + + Care Team Providers + +------+ + | Care Tankage Grinder Name | Role | Phone | + +------+ + | Juanito Avery PCP | | + +------+ + Encounter Details +--------+ + + + + | Date | Type | Department | Care Team | Description | +--------+ + + + + | 09/22/ | Transcribed | [facility] | Mary Malin, [place]EL[place] | | | 2019 | Orders | MED CTR RESPIRATORY | | | | | | THERAPY [address] | | | | | | [place], | | | | | | [place] [address] | | | | | | [phone] | | | +--------+ + + + [...] [place] | | | | | | [address] | | | | | | | | +--------+---------+ + + + | 11/05/ | Office | Neurology | Tariq, | | | 2019 | Visit | | ANGELA Ven[address]as [address] | | | | | | [address] [place], | | | | | | [place] [address] | | | | | | [phone] | | | | | | | [...]
--- OUTSIDE RECORDS SUMMARY | ~2019-09-02 | XMS | Encounter Summary ---
Demographics + + + | Address | [address] | | | [place] [address] | + + + | Home Phone [...] | | | | | [place] [address] | | + + + + + Care Team Providers + +------+ + | Care Traffic Supervisor Name | Role | Phone | [...] | | + +---------+ + + | [facility] DEPARTMENT OF | | | | | RADIOLOGY | | | | + +---------+ + + documented in this encounter Visit Diagnoses Not on filedocumented in this encounter"
--- OUTSIDE RECORDS SUMMARY | ~2019-09-02 | XMS | Encounter Summary ---
Demographics + + + | Address | [address] | | | [place] [address] | + + + | Home Phone [...] | | | | | [place] [address] | | + + + + + | Robson Min | ECON | Unknown | | + + + + + | Isabella Whitehead | ECON | Unknown | | + + + + + | Seven Neff | ECON | Unknown | | + + + + + Care Team Providers + +------+ + | Care Installer Technician Name | Role | Phone [...] + + | 04/18/ | Hospital | [facility] | Loi De Jesus, | NSTEMI (non-ST | | 2019 - | Encounter | [facility]UTE | MD [address] | elevated myocardial | | | | CARE FLOOR [address] | [place] [address] | infarction) (HCC) | | 04/20/ | | [address] | [phone] | (Primary Dx); Chest | | 2019 | | [place], [place] | Stevo Hitchcock MD | pain, unspecified | | | | [address] | [address] | type; COPD, frequent | | | | [phone] | [place] [address] | exacerbations ([facility]) | | | | | [phone] | | | | | | | | | | | | Iva Buck DO | | | | | | [address] | | | | | | [place] [address] | | | | | | [phone] | | | | | | | [...] elevated troponin in [place], t roponins at [facility] were undetectable. EKG was negative for acute [...] e vening aka: LYRICA Respiratory Therapy Supplies [facility] Portable oxygen concentrator to provide O2 at [...] migh t be different from the original. Located Within [facility] Service: Cardiology Progress Note Hospital [...] should follow up with me in the [place] rdiology office 4 weeks post discharge. Thank you for allowing me to participate in the care of this patient. Code Status: Prior Primary Care Physician: Adele Batista DO pIva pearson DO - 04/19/2019 7:22 AM PST Located Within [facility] Adult Hospitalist Progress Note Hospital [...] nausea, and some diaphore sis. Transferred to [facility] for reportedly positive troponin. Enzymes have been [...] Service: Cardiology Initial Consult Note Name of Pit Inspector: Laine Batista DO Reason for Consultation: Chest [...] she presented to the emergency department in [place]. Hannah harmon reportedly had a very mildly elevated troponin in the ER in [place] and was subsequently transferred to [facility]. Here, her troponin has been [...] Knee pain Lymphedema Myocardial infarction ([facility]) Nausea and vomiting Nocturia Obesity Panic anxiety syndrome Pneumonia Pyoderma gangreosum-LE RA (rheumatoid arthritis) ([facility]) Followed by Dr. Becerra Rheumologist in [place] Reflux esophagitis Restless leg syndrome Urinary [...] file Gets together: Not on file Attends mandaeism service: Not on file Active member of [...] heart rate was 50BPM, the highest heart [id number], [id number]. During this recording inte rval, there were [...] childs in sticky note also. rooke Ag [facility] - 04/18/2019 2:19 PM PSTRx Admission [...] Medications as necessary. Thanks Brooke Ag PharmD, [facility] documented in t his encounter Plan of Treatment +--------+---------+ + + + | Date | Type | Specialty | Care Team | Description | +--------+---------+ + + + | 09/27/ | Office | Pulmonology | GrandeNavdeep, | | | 2019 | Visit | | [address] | | | | | | [place] | | | | | | [address] | | | | | | | | +--------+---------+ + + + | 11/05/ | Office | Neurology | Tariq, | | | 2019 | Visit | | [address] | | | | | | [address] [facility], | | | | | | [place] [address] | | | | | | [phone] | | | | | | | [...] | | | ?MRN: | | | [id number] | | | [id number] | | | riteri | | | [...] | | | ton:? | | | [id number] | | | -2536. | | | [...] | | | St. | | | [place] | | | y | | | [...] | | | St. | | | [place] | | | y H. | | [...] | | | St. | | | [place] | | | y H. | | [...] | | | St. | | | [place] | | | y H. | | [...] | | | St. | | | [place] | | | y H. | | [...] | | | St. | | | [place] | | | y H. | | [...] | | | St. | | | [place] | | | y H. | | [...] | | | St. | | | [place] | | | y H. | | [...] | | | [id number] | | | [id number] | | | 93 | | | [...] 49 (L)Comment: GFR <60: | >60 | [facility] | | | GFR | CHRONIC KIDNEY [...] | | | | | | MDRD IDME traceable | | | | | | equation.Testing | | | | | | performed at [facility] | | | | | | [facility];[place], [place] | | | | | | [address] | | | | + + + + + + + + | Specimen | + + | Blood | + + + + + + + | Performing | Address | City/State/Zipcode | Phone Number | | Organization | | | | + + + + + | [facility] | [address] | [place] [address] | [phone] | + + + + + Phosphorus (04/20/2019 6:16 AM PST) + + + + + + | Component | Value | Ref Range | Performed | Pathologist | | | | | At | Signature | + + + + + + | Phosphorus | 4.9 (H)Comment: Testing | 2.3 - 4.8 mg/dL | [facility] | | | | performed at [facility];[address] | | LABORATORY | | | | [address];[place] | | | | | | [address] | | | | + + + + + + + + | Specimen | + + | Blood | + + + + + + + | Performing | Address | City/State/Zipcode | Phone Number | | Organization | | | | + + + + + | [facility] | [address] | [place] [address] | [phone] | + + + + + Magnesium (04/20/2019 6:16 AM PST) + + + + + + | Component | Value | Ref Range | Performed | Pathologist | | | | | At | Signature | + + + + + + | Magnesium | 1.8Comment: Testing | 1.7 - 2.4 mg/dL | [facility] | | | | performed at [facility];[address] | | LABORATORY | | | | [address];[place], [place] | | | | | | [address] | | | | + + + + + + + + | Specimen | + + | Blood | + + + + + + + | Performing | Address | City/State/Zipcode | Phone Number | | Organization | | | | + + + + + | [facility] | [address] | [place] [address] | [phone] | + + + + + CBC [...] [facility] | | | | performed at [facility];[address] | | LABORATORY | | | | [address];[place] | | | | | | [address] | | | | + + + + + + + + | Specimen | + + | Blood | + + + + + + + | Performing | Address | City/State/Zipcode | Phone Number | | Organization | | | | + + + + + | [facility] | [address] | [place] [address] | [phone] | + + + + + NM [...] <0.006Comment: 0.04 | 0.00 - 0.04 | [facility] | | | | ng/mL or less [...] at | | | | | | [facility];[address] [facility] | | | | | | [facility];[place] [address] | | | | + + + + + + + + | Specimen | + + | Blood | + + + + + + + | Performing | Address | City/State/Zipcode | Phone Number | | Organization | | | | + + + + + | [facility] | [address] | [place] [address] | [phone] | + + + + + Troponin [...] at | | | | | | [facility];[address] [facility] | | | | | | Blvd;[place] [address] | | | | + + + + + + + + | Specimen | + + | Blood | + + + + + + + | Performing | Address | City/State/Zipcode | Phone Number | | Organization | | | | + + + + + | [facility] | [address] | [place] [address] | [phone] | + + + + + Urinalysis [...] - 1.030 | [facility] | | | [place], | | | LABORATORY | | | [...] | | | Urine | performed at [facility];[address] | | LABORATORY | | | | [address];[place] | | | | | | [address] | | | | + + + + + + + + | Specimen | + + | Urine | + + + + + + + | Performing | Address | City/State/Zipcode | Phone Number | | Organization | | | | + + + + + | [facility] | [address] | [place] [address] | [phone] | + + + + + Drugs [...] | | | | | performed at [facility];[address] | | | | | | [facility];[place], [place] | | | | | | [address] | | | | + + + + + + + + | Specimen | + + | Urine - Urine | | specimen (specimen) | + + + + + + + | Performing | Address | City/State/Zipcode | Phone Number | | Organization | | | | + + + + + | [facility] | [address] | [place] [address] | [phone] | + + + + + ECG [...] (500), | | | | | | photographic editor Beth Quinn | | | | [...] | | | Calculated | performed at [facility], [address] | | LABORATORY | | | | [address], | | | | | | [place] [address] | | | | + + + + + + + + | Specimen | + + | Blood | + + + + + + + | Performing | Address | City/State/Zipcode | Phone Number | | Organization | | | | + + + + + | [facility] | [address] | [place] [address] | [phone] | + + + + + Hemoglobin A1C (04/18/2019 11:54 AM PST) + + + + + + | Component | Value | Ref Range | Performed | Pathologist | | | | | At | Signature | + + + + + + | Hemoglobin | 5.9Comment: HbA1c method | 4.0 - 6.0 % | [facility] | | | A1c | is certified [...] | 123Comment: Estimated | <154 mg/dL | [facility] | | | Average | Average Glucose | | LABORATORY | | | Glucose | calculated from | | | | | | hemoglobin A1c by use of | | | | | | the ADArecommended | | | | | | formula.Testing | | | | | | performed at [facility], [address] | | | | | | [facility], | | | | | | [place] [address] | | | | + + + + + + + + | Specimen | + + | Blood | + + + + + + + | Performing | Address | City/State/Zipcode | Phone Number | | Organization | | | | + + + + + | [facility] | [address] | [place] [address] | [phone] | + + + + + Protime INR (04/18/2019 11:54 AM PST) + + + + + + | Component | Value | Ref Range | Performed | Pathologist | | | | | At | Signature | + + + + + + | INR | 1.0Comment: REFERENCE | | [facility] | | | | RANGE:0.9 - 1.2 [...] | | | | | performed at [facility];[address] | | | | | | [address];[place] | | | | | | [address] | | | | + + + + + + + + | Specimen | + + | Blood | + + + + + + + | Performing | Address | City/State/Zipcode | Phone Number | | Organization | | | | + + + + + | [facility] | [address] | [place] [address] | [phone] | + + + + + Troponin I (04/18/2019 11:54 AM PST) + + + + + + | Component | Value | Ref Range | Performed | Pathologist | | | | | At | Signature | + + + + + + | Troponin I | 0.006Comment: 0.04 | 0.00 - 0.04 | [facility] | | | | ng/mL or less [...] at | | | | | | [facility];[address] [facility] | | | | | | Blvd;[place] [address] | | | | + + + + + + + + | Specimen | + + | Blood | + + + + + + + | Performing | Address | City/State/Zipcode | Phone Number | | Organization | | | | + + + + + | [facility] | [address] | [place] [address] | [phone] | + + + + + Comprehensive [...] 51 (L)Comment: GFR <60: | >60 | [facility] | | | GFR | CHRONIC KIDNEY [...] | | | | | performed at [facility];[address] | | | | | | [facility];[place], [place] | | | | | | [address] | | | | + + + + + + + + | Specimen | + + | Blood | + + + + + + + | Performing | Address | City/State/Zipcode | Phone Number | | Organization | | | | + + + + + | [facility] | [address] | [place] [address] | [phone] | + + + + + CBC [...] at | | | | | | [facility];[address] [place] [address] | | | | | | [facility];[place] [address] | | | | + + + + + + + + | Specimen | + + | Blood | + + + + + + + | Performing | Address | City/State/Zipcode | Phone Number | | Organization | | | | + + + + + | [facility] | [address] | [place] [address] | [phone] | + + + + + documented [...]
--- OUTSIDE RECORDS SUMMARY | ~2019-09-02 | XMS | Encounter Summary ---
Demographics + + + | Address | [address] | | | [place] [address] | + + + | Home Phone [...] | | | | | [place] [address] | | + + + + + | Robson Min | ECON | Unknown | | + + + + + | Isabella Whitehead | ECON | Unknown | | + + + + + | Seven Neff | ECON | Unknown | | + + + + + Care Team Providers + +------+ + | Care Finger Grip Machine Operator Name | Role | Phone | + +------+ + | Bart Ba DO | PCP | | + +------+ + Encounter Details +--------+ + + + + | Date | Type | Department | Care Team | Description | +--------+ + + + + | 04/04/ | Hospital | [facility] | Navdeep Grande, | Abnormal chest CT | | 2012 - | Encounter | MED CTR XRAY [address] | | | | | [place] | [place] | | | 04/06/ | | [place] [address] | [address] | | | 2011 | | [phone] | | | +--------+ + + + [...] | 0 | 10/08/19 | | | dndvsbnrgy-vzjntbv-s | every 6 hours as | | [...] [place] | | | | | | [address] | | | | | | | | +--------+---------+ + + + | 11/05/ | Office | Neurology | Tariq, | | | 2019 | Visit | | [address] | | | | | | [address] [facility] [place], | | | | | | [place] [address] | | | | | | [phone] | | | | | | | [...] | [facility] Diagnostic Imaging | [place] | | Department [address] [facility] | [facility] | | [ rep ct [address]] [ rep [facility] | | st zip] Signed | - IMAGING | | | | | Patient Name: CARLINE MIN Physician: | | | RODRI : 1970 Age: 41 Sex: F Unit #: [id number] | | | Exam Date: 04/04/12 Location: [facility] | | | Report #: [id number] Page: | | | %(RAD)RES..mtdd.print.filter("pg") of %(RAD) | | | RES..mtdd.print.filter("tpg") | | | | | | Accession Number: [id number] | | | CHEST X-RAY, 04/04/2012 CLINICAL [...] | | | Transcribed Date/Time: 04/04/2012 15:34 Fishing Line Winding Machine Operator: | | | <<Signature on File>> | | | Magdy | | | MD Shaun04/05/12 0055 <Electronically signed by Magdy Dunn MD> | | | Magdy Dunn MD 04/04/12 1225 Fishing Line Winding Machine Operator: Webmelody | | | Kufoehnuyrlfr66/17/12 1534 Navdeep Grande MD | | | | | + + + + + + + + | Performing | Address | City/State/Zipcode | Phone Number | | Organization | | | | + + + + + | [facility] | [address] | [place] | [phone] | | [facility] | | [address] | | | - IMAGING | | | | + + + + + documented in this encounter Visit Diagnoses + + | Diagnosis | + + | Abnormal chest CT Nonspecific (abnormal) findings on radiological and other | | examination of other intrathoracic organs | + + documented in this encounter
--- OUTSIDE RECORDS SUMMARY | ~2019-09-02 | XMS | Encounter Summary ---
Demographics + + + | Address | [address] | | | [place] [address] | + + + | Home Phone [...] | | | | | [place] [address] | | + + + + + Care Team Providers + +------+ + | Care Guard Range Name | Role | Phone | + [...] | + + + + + | [facility] | [address] | [place] [address] | | | PATHOLOGY | [address] | | | + + + + + | [facility] | [facility] [facility] [facility] | [place] [address] | | | PATHOLOGY | [address] [...] | + + + + + | [facility] DEPARTMENT OF | [address] | [place] [address] | | | PATHOLOGY | [address] | | | + + + + + | [place] DEPARTMENT OF | [address] | [place] [address] | | | PATHOLOGY | [address] [...] | + + + + + | [facility] | [address] [facility] [facility] | [place] [address] | | | PATHOLOGY | [address] | | | + + + + + | [facility] | [address] [facility] [facility] | [place] [address] | | | PATHOLOGY | [address] [...] | + + + + + | [facility] | [address] | [place] [address] | | | LAB-MICRO | | | [...] + + + | [facility] | [address] | [place] [address] | | | LAB-MICRO | | | | + + + + + CULT, BLOOD BACTI & ETA (12/02/2002 5:05 PM PDT) + + + [...] | + + + + + | [facility] | [address] | [place] [address] | | | LAB-MICRO | | | [...] | + + + + + | [facility] | [address] | [place] [address] | | | LAB-MICRO | | | [...] | + + + + + | [facility] DEPARTMENT | [address] [facility] [facility] | [place] [address] | | | PATHOLOGY | [address] | | | + + + + + | [facility] DEPARTMENT OF | [address] [facility] [address] [facility] | [place] [address] | | | PATHOLOGY | [address] [...] | + + + + + | [facility] | [address] [facility] [address] [facility] | [place] [address] | | | PATHOLOGY | [address] | | | + + + + + | [facility] | [address] [facility] [address] [facility] | [place] [address] | | | PATHOLOGY | [address] [...] | + + + + + | [facility] DEPARTMENT OF | [address] | [place] [address] | | | PATHOLOGY | [address] | | | + + + + + | [facility] DEPARTMENT OF | [address] | [place] [address] | | | PATHOLOGY | [address] | | | + + + + + PHOSPHORUS, PLASMA (12/02/2002 5:00 PM PDT) + +-------+ + + + | Component | Value | Ref Range | Performed | Pathologist | | | | | At | Signature | + +-------+ + + + | PHOSPHORUS, | 3.6 | 2.4 - 4.7 mg/dL | [facility] | | | PLASMA | [...] | + + + + + | [facility] DEPARTMENT OF | [address] | [place] [address] | | | PATHOLOGY | [address] | | | + + + + + | [facility] DEPARTMENT OF | [address] | [place] [address] | | | PATHOLOGY | [address] [...] | + + + + + | [facility] DEPARTMENT OF | [address] | [place] [address] | | | PATHOLOGY | [address] | | | + + + + + | [facility] DEPARTMENT OF | [address] | [place] [address] | | | PATHOLOGY | [address] [...] | | + +---------+ + + | [facility] DEPARTMENT OF | | | | | RADIOLOGY | | | | + +---------+ + + documented in this encounter Visit Diagnoses Not on filedocumented in this encounter"
--- OUTSIDE RECORDS SUMMARY | ~2019-09-02 | XMS | Encounter Summary ---
Demographics + + + | Address | [address] | | | [place] [address] | + + + | Home Phone [...] | | | | | [place] [address] | | + + + + + Care Team Providers + +------+ + | Care Derrick Helper Name | Role | Phone | [...] | | | | | [place], | | | | | | [place] [address] | | | | | | [phone] | | | | | | | [...] [facility] | [address] [facility] | [place] [address] | | | PATHOLOGY | [address] | | | + + + + + | [facility] DEPARTMENT OF | [facility] | [place] [address] | | | PATHOLOGY | [address] [...] | + + + + + | [facility] DEPARTMENT OF | [address] | [place] [address] | | | PATHOLOGY | [address] | | | + + + + + | [facility] DEPARTMENT OF | [address] | [place] [address] | | | PATHOLOGY | [address] | | | + + + + + documented in this encounter Visit Diagnoses Not on filedocumented in this encounter"
--- OUTSIDE RECORDS SUMMARY | ~2019-09-02 | XMS | Encounter Summary ---
Demographics + + + | Address | [address] | | | [place] [address] | + + + | Home Phone [...] | | | | | [place] [address] | | + + + + + | Robson Min | ECON | Unknown | | + + + + + | Isabella Whitehead | ECON | Unknown | | + + + + + | Seven Neff | ECON | Unknown | | + + + + + Care Team Providers + +------+ + | Care Government Professor Name | Role | Phone | [...] + + | 08/29/ | Telephone | [facility] [place] | Navdeep Grande, | Other (Advair) | | 2019 | | PULMONARY [address] | MD [address] | | | | | [place], | [place] | | | | | [place] [address] | [address] | | | | | [phone] | | | +--------+ + + + [...] [place] | | | | | | [address] | | | | | | | | +--------+---------+ + + + | 11/05/ | Office | Neurology | Tariq, | | | 2019 | Visit | | [address] | | | | | | [address] [place], | | | | | | [place] [address] | | | | | | [phone] | | | | | | | | +--------+---------+ + + + documented as of this encounter Visit Diagnoses Not on filedocumented in this encounter"
--- OUTSIDE RECORDS SUMMARY | ~2019-09-02 | XMS | Encounter Summary ---
Demographics + + + | Address | [address] | | | [place] [address] | + + + | Home Phone [...] | | | | | [place] [address] | | + + + + + | Robson Min | ECON | Unknown | | + + + + + | Isabella Whitehead | ECON | Unknown | | + + + + + | Seven Neff | ECON | Unknown | | + + + + + Care Team Providers + +------+ + | Care Combine Operator Name | Role | Phone | + +------+ + | Bart Ba DO | PCP | | + +------+ + Encounter Details +--------+ + + + + | Date | Type | Department | Care Team | Description | +--------+ + + + + | 10/18/ | Hospital | [facility] | Navdeep Grande, | Abnormal chest CT | | 2012 | Encounter | MED CTR XRAY [address] | | | | | [place] | [place] | | | | | [place] [address] | [id number] | | | | | [phone] | | | +--------+ + + + [...] | 0 | 10/08/19 | | | brrnoylkcp-lsiojiz-t | every 6 hours as | | [...] [place] | | | | | | [address] | | | | | | | | +--------+---------+ + + + | 11/05/ | Office | Neurology | Tariq, | | | 2019 | Visit | | Theo, [facility] [address] | | | | | | [address] [facility], | | | | | | [place] [address] | | | | | | [phone] | | | | | | | [...] Performed At | + + + | [facility] | [place] | | Department [address] [facility] | [place] | | [ rep [address]] [ rep [facility] | | st zip] Signed | - IMAGING | | | | | Patient Name: CARLINE MIN Physician: | | | RODRI : 1970 Age: 42 Sex: F Unit #: [id number] | | | Exam Date: 10/18/12 [place] [facility] | | | Report #: [id number] Page: | | | %(RAD)RES..mtdd.print.filter("pg") of %(RAD) | | | RES..mtdd.print.filter("tpg") | | | | | | Accession Number: [id number] | | | [facility]INICAL [...] Transcribed Date/Time: 10/18/2012 12:20 | | | Tack Puller: <<Signature on | | | File>> | | | Ace Avery MD10/18/12 1439 <Electronically signed by | | | Ace Avery MD> Ace Avery MD 10/18/12 | | | [address] Tack Puller: Maria L Rvsqkwonyeebn36/02/13 1220 | | | Navdeep Grande MD | | + + + + + + + + | Performing | Address | City/State/Zipcode | Phone Number | | Organization | | | | + + + + + | [facility] | [address] | [place] | [phone] | | [facility] | | [address] | | | - IMAGING | | | | + + + + + documented in this encounter Visit Diagnoses + + | Diagnosis | + + | Abnormal chest CT Nonspecific (abnormal) findings on radiological and other | | examination of other intrathoracic organs | + + documented in this encounter
--- OUTSIDE RECORDS SUMMARY | ~2019-09-02 | XMS | Clinical Summary ---
Demographics + + + | Address | [address] | | | [place] [address] | + + + | Home Phone [...] | | | | | [place] [address] | | + + + + + | Robson Min | ECON | Unknown | | + + + + + | Isabella Whitehead | ECON | Unknown | | + + + + + | Seven Neff | ECON | Unknown | | + + + + + Care Team Providers + +------+ + | Care Hall Coordinator Name | Role | Phone | + +------+ + | Juanito Avery | PCP | | + +------+ + Allergies + [...] | | + + + +---------+------+------+-------+ | buprenorphine [...] Activ | | (LYRICA) 150 MG | every morning. Take | | | | | e | | capsule | 150 mg by mouth in | | | | | | | | the morning and 300 | | | | | | | | mg in the evening. | | | | | | + [...] 50,000 Units by | | 0 | 12/19 | | Activ | | (VITAMIN D-2) 50,000 | mouth Once a week. | | | 10/06 | | e | | units capsule | Wednesdays. | | | 19 | | | + + + +---------+------+------+-------+ | levothyroxine | Take 300 mcg by | | 0 | /0 | | Activ | | (SYNTHROID) 300 mcg | mouth every morning | | | 11/05 | | e [...] | | + + + +---------+------+------+-------+ | diclofenac | Apply 2 g topically | | 0 | 02/0 | | Activ | | (VOLTAREN) 1% GEL | 3 times daily. feet | | | 5/20 | | e | | | | | | 20 | | | + + + +---------+------+------+-------+ | DOK 100 MG tablet | Take 100 mg by mouth | | 0 | 02/2 | | Activ | | | 2 times daily. | | | 6/20 | | e | | | | | | 20 | | | + + + +---------+------+------+-------+ | omeprazole | Take 20 mg by mouth | | 0 | 01/2 | | Activ | | (PRILOSEC) 20 mg | Daily. | | | 08/06 | | e | | capsule | | | | 20 | | | + + + +---------+------+------+-------+ | SITagliptin | Take 100 mg by mouth | | 0 | 03/19 | | Activ | | (JANUVIA) 100 mg | Daily. | | | 12/06 | | e | | tablet | | | | 19 | | | + + + +---------+------+------+-------+ | sulfaSALAzine | Take 1,000 mg by | | 0 | 03/20 | | Activ | | (AZULFIDINE) 500 MG | mouth 2 times daily. | | | 07/06 | | e | | EC tablet | | | | 19 | | | + + + +---------+------+------+-------+ | verapamil | Take 480 mg by mouth | | 0 | /2 | | Activ | | (VERELAN) 240 mg SR | nightly. | | | 09/05 | | e | | capsule | | | | 20 | | | + + + +---------+------+------+-------+ | DULoxetine | Take 30 mg by mouth | | 0 | | | Activ | | (CYMBALTA) [address] | Daily. | | | | | e | | capsule | | | | | | | + + + +---------+------+------+-------+ | lubiprostone | Take 24 mcg by mouth | | 0 | | | Activ | | (AMITIZA) 24 mcg | every morning. | | | | | e | | capsule | | | | | | | + + + +---------+------+------+-------+ | aspirin 325 mg EC | Take 325 mg by mouth | | 0 | | | Activ | | tablet | Daily as needed for | | | | | e | | | Pain. | | | | | | + + + +---------+------+------+-------+ | azaTHIOprine | Take 100 mg by mouth | | 0 | | | Activ | | (IMURAN) 50 mg | nightly. Take 50 mg | | | | | e | | tablet | by mouth in the | | | | | | | | morning and 100 mg | | | | | | | | nightly. | | | | | | + + + +---------+------+------+-------+ | insulin glargine | Inject 10 Units | | 0 | | | Activ | | (BASAGLAR KWIKPEN) | under the skin every | | | | | e | | 100 units/mL | morning. | | | | | | | injection (pen) | | | | | | | + + + +---------+------+------+-------+ | tiotropium | Inhale 2 puffs into | | 0 | | | Activ | | (SPIRIVA RESPIMAT) | the lungs Daily. | | | | | e | | 2.5 mcg/puff inhaler | | | | | | | + + + +---------+------+------+-------+ | Continuous Blood | | | 0 | 04/0 | | Activ | | Gluc Sensor | | | | 6/20 | | e | | (FREESTYLE HUAN 14 | | | | 20 | | | | DAY SENSOR) MISC | | | | | | | + + + +---------+------+------+-------+ | UNIFINE PENTIPS | | | 0 | 03/2 | | Activ | | 31G X 8 MM | | | | 3/20 | | e | | | | | | 20 | | | + + + +---------+------+------+-------+ Active Problems + + + | Problem | Noted Date | + + + | Uncontrolled type 2 diabetes mellitus | 06/20/2019 | + + + | Intractable migraine with aura without status migrainosus | 06/20/2019 | + + + | Chest pain [...] | 02/23/2018 | + + + | Hypoxemia | [...] + + | Overview: Overview: | | Naveen Becerra- in [place] | | | | IMO Problem List Replacement - 2017_Regulatory_1 | + + + + + | [...] 9 | + + + + | JESUSITA and COPD overlap syndrome | 12/11/19 | | | | 18 | 0 | + + + + | Influenza [...] | +--------+ + + + + | 07/26/ | Office | Pulmonology | Navdeep Grande, | Alveolar | | 2020 | Visit | | MD | hypoventilation | | | | | | (Primary Dx); COPD, | | | | | | frequent | | | | | | exacerbations (HCC); | | | | | | COPD, moderate | | | | | | (HCC) | +--------+ + + + + | 07/11/ | Telephone | Pulmonology | Navdeep Grande, | Appointment | | 2019 | | | | | +--------+ + + + + | 07/05/ | Procedure | Neurology | Jimbo Samayoa MD | Intractable migraine | 2019 | visit | | | with aura without | | | | | | status migrainosus | | | | | | (Primary Dx) | +--------+ + + + + | 06/28/ | Imaging | Radiology | Provider, | | 2019 | Exam | | MD Shira | | +--------+ + + + + | 06/25/ | Telephone | Hospitalist | Alpa Dior | Hospital Follow-up | | 2019 | | | MARTHA Urias | | +--------+ + + + + | 06/20/ | Hospital | | Bk, Clint | Polypharmacy | | 2020 - | Encounter | | MD Gabriela Rosen, | (Primary Dx); | | | | | Renee Ga MD | Delirium due to | | 06/22/ | | | | another medical | | 2020 | | | | condition; Bipolar I | | | | | | disorder ([facility]); | | | | | | Anxiety; Bipolar II | | | | | | disorder ([facility]); | | | | | | Chronic obstructive | | | | | | pulmonary disease, | | | | | | unspecified COPD | | | | | | type ([facility]); | | | | | | Hypercarbic cerebral | | | | | | edema ([facility]); | | | | | | Insomnia, | | | | | | unspecified type | +--------+ + + + + | 06/20/ | Intake | | | N/A | | 2020 | | | | | +--------+ + + + + | 06/19/ | Office | Neurology | Jimbo Samayoa MD | Diabetic | | 2020 | Visit | | | polyneuropathy | | | | | | associated with type | | | | | | 2 diabetes mellitus | | | | | | ([facility]) (Primary Dx); | | | | | | Neck pain, | | | [...] | | | | | Dizziness | +--------+ + + + + from [...] | TRIVALENT(PED/ADOL/A | 03/07/2009 | | | DULT)MARCIAKT | | | + + + + | INFLUENZA QUADR | 02/10/2018, 01/27/2017 | | | W/PRES | | | | (PED/ADOL/ADULT) | | | | MULTIDOSE | | | + + + + | INFLUENZA TRIV | 01/10/2015, 02/04/2011 | | | W/PRES(PED/ADOL/ADUL | | | | T),MULTIDOSE | | | + + + + | INFLUENZA, [id number], | 03/09/2009 | | | UNSPECIFIED | [...] [place] | | | | | | [address] | | | | | | | | +--------+---------+ + + + | 11/05/ | Office | Neurology | Tariq, | | | 2019 | Visit | | Theo, [facility] [address] [facility], | | | | | | [place] [address] | | | | | | [phone] | | | | | | | [...] + + | Hemoglobin A1c | | 06/21/2019, 04/18/2019, | | | Screening | 0 | 09/06/2014, Additional history | | | | | [...] | + +--------+ + + + | NE CHEMODERVATE | Routin | 07/06/2019 | Intractable [...] section. | + +--------+ + + + from Last 3 Months Results BOTOX INJECTION PAIN CLINIC PROCEDURE (07/06/2019 3:45 PM PDT) + + + | Narrative | Performed At | + + + | Jimbo Samayoa MD 07/06/2019 4:08 PM Kait Min | | | 07/06/2019 PROCEDURE: BOTOX INDICATION: Intractable migraine with | | | aura, non-status migrainous Kait Amanda Minwas a. 49 | | | y.o.year-old femalewho [...] | | Sincerely, Jimbo Samayoa M.D. Neurologist [phone] | | | Electronically signed | | + + + POC Glucose (06/23/2019 12:18 PM PST)Only the most recent of 7 results within the time vandana od is included. + + + + + + | Component | Value | Ref Range | Performed | Pathologist | | | | | At | Signature | + + + + + + | Glucose, | 266 (H)Comment: | 65 - 99 mg/dL | [facility] | | | POC | Performed by [facility] [address] | | SACRED | | | | [address] [place] | | HEART | | | | [address] | | MEDICAL | | | | [...] + + | [facility] | [address] | [place] [address] | | | [facility] | | | | | LABORATORY [...] ENCE | | | Immature | by [facility] [address], | K/uL | SACRED | | | Granulocyte | [place] [address] | | HEART | | | s |Performed by [facility] [address], [place] [address] | | MEDICA L | | | [...] + + | SHASHISAMIR AGUERO | [address] | [place] [address] | | | [facility] | | | | | LABORATORY CERNER | | | | + + + + + Magnesium (06/23/2019 5:08 AM PST)Only the most recent of 2 results within the time period is included. + + + +--------- ----+ + | Component | Value | Ref Range | Performe d | Pathologist | | | | | At | Signature | + + + +--------- ----+ + | Magnesium | 1.7Comment: Performed | 1.7 - 2.4 mg/dL | [facility] | | | | by [facility] [address], | | SACRED | | | | [place] [address] | | HEART | | | |Performed by [facility] [address], [place] [address] | | MEDICAL | | | | [...] + | [facility] | [address] | [place] [address] | | | [facility] | | | | | LABORATORY CERNER | | | | + + + + + Comprehensive Metabolic Panel (06/23/2019 5:08 AM PST)Only the most recent of 2 results wi thin the time period is included. + + + + + [...] | | LABORATORY | | | | [facility] [address] [place], | | CERNER | | | | [place] [address] | | | | + + + + + + + + | Specimen | + + | Blood specimen | | (specimen) | + + + + + + + | Performing | Address | City/State/Zipcode | Phone Number | | Organization | | | | + + + + + | [facility] | [address] | [place] [address] | | | [facility] | | | | | LABORATORY AVERYNER | | | | + + + [...] [facility] | | | | by [facility] [address], | | SACRED | | | | [place] [address] | | HEART | | | |Performed by [facility] [address], [place] [address] | | MEDICAL | | | | [...] | + + + + + | PROVID[facility] AGUERO | [address] | [place] [address] | | | [facility] | | | | | LABORATORY [...] | | LABORATORY | | | | [facility] [address], | | CERNER | | | | [place] [address] | | | | + + + + + + + + | Specimen | + + | Blood specimen | | (specimen) | + + + + + + + | Performing | Address | City/State/Zipcode | Phone Number | | Organization | | | | + + + + + | [facility] | [address] | [place] [address] | | | [facility] | | | | | NICK [...] | | | | | battery.Performed by [facility] | | | | | | [address] [place], | | | | | | [place] [address] | | | | + + + [...] + | GRACE AGUERO | [address] | [place] [address] | | | [facility] | | | | | LABORATORY [...] | TRACEMASTER | | Duration:232 msP Horizontal Kennett:14 degP Front [place]:55 degQ Onset:512 | | | msQRSD Interval:100 msQT Interval:424 msQTcB:465 msQTcF:451 msQRS | | | Horizontal Kennett:257 degQRS Kennett:-35 degI-40 Horizontal [place]:91 degI-40 | | | Front [place]:31 degT-40 Horizontal Kenn[place]:254 degT-40 Front Kenn[place]:-44 degT | | | Horizontal [place]:62 degT Wave [place]:45 degS-T Horizontal [place]:75 degS-T | | | Front [place]: degSeverity:- ABNORMAL ECG -INTERP:SINUS | | | RHYTHMINTERP:FIRST DEGREE AV BLOCKINTERP:LEFT AXIS | | | DEVIATIONINTERP:CONSIDER ANTERIOR INFARCTElectronically signed by: , | | | 06-22-2019 06:23:26 | | |QTcF:451 ms | | |QRS Horizontal Kennett:257 deg | | |QRS Kennett:-35 deg | | |I-40 Horizontal Kennett:91 deg | | |I-40 Front Kenn[place]:31 deg | | |T-40 Horizontal Kenn[place]:254 deg | | |T-40 Front Kennett:-44 deg | | |T Horizontal [place]:62 deg | | |T Wave [place]:45 deg | | |S-T Horizontal Kennett:75 deg | | |S-T Front [place]: deg | | |Severity:- ABNORMAL ECG - [...] | + + + + + | [facility] | [address] | [place] [address] | [phone] | + + + + + XR Chest AP Portable (06/21/2019 8:44 PM PST)Only the most recent of 2 results within the time period is included. + + | Specimen | + + [...] | pneumothorax. Signed by: Ngoc Perez, Jeffy Sign Date/Time: | | | 06/21/2019 9:00 PM [...] | | + +---------+ + + CBC with Manual Differential (06/21/2019 [...] Anisocytosi | 1+Comment: Performed by | | ANKUSH GARCESE | | | s | [facility] [address], | | SACRED | | | | [place] | | HEART | | | |Performed by [facility] [address], [place], [place] | | MEDICA L | | | [...] + + | [facility] | [address] | [place], [place] | | | [facility] | | | | | LABORATORY CERNER | | | | + + + + + Protime INR (06/21/2019 8:37 PM PST) + + [...] | | | | | | by [facility] [address], | | | | | | [place] [address] | | | | + + + + + + + + | Specimen | + + | Blood specimen | | (specimen) | + + + + + + + | Performing | Address | City/State/Zipcode | Phone Number | | Organization | | | | + + + + + | [facility] | [address] | [place] [address] | | | HEART [facility] | | | | | [...] [facility] | | | | by [facility] [address], | | SACRED | | | | [place] [address] | | HEART | | | |Performed by [facility] [address], [place] [address] | | MEDICAL | | | | | | CENTER | | | | | | LABORAT ORCindy | | | | | | AVERYNER | | + + + +-------- -----+ + + + | Specimen | + + | Blood specimen | | (specimen) | + + + + + + + | Performing | Address | City/State/Zipcode | Phone Number | | Organization | | | | + + + + + | [facility]ACE [facility] | [address] | [place] [address] | | | [facility] | | | | | NICK [...] [facility] | | | Venous | by [facility] [address], | mmol/L | SACRED | | | | [place] [address] | | HEART | | | |Performed by [facility] [address], [place] [address] | | MEDICAL | | | | [...] | + + + + + | SH[facility]IHECTORBrooke BENSONVIVI | [address] | [facility] [place] [address] | | | [facility] | | | | | LABORATORY [...] | | | | | formula.Performed by [facility] | | | | | | [address], | | | | | | [place] [address] | | | | + + + + + + + + | Specimen | + + | Blood specimen | | (specimen) | + + + + + + + | Performing | Address | City/State/Zipcode | Phone Number | | Organization | | | | + + + + + | [facility] | [address] | [place] [address] | | | [facility] | | | | | LABORATORY CERNER | | | | + + + + + Ethanol (06/21/2019 8:37 PM PST) + + + + --+ + | Component | Value | Ref Range | Performed | Pathologist | | | | | At | Signature | + + + + --+ + | ALCOHOL, | 7Comment: Performed by | 0 - 9 mg/dL | [facility] | | | SERUM/PLASM | [facility] [address], | | SACRED | | | A | [place] [address] | | HEART | | | |Performed by [facility] [address], [place] [address] | | MEDICAL | | | | [...] + + + + + | [facility] | [address] | [place] [address] | | | [facility] | | | | | LABORATORY [...] | Not Detected | Not Detected | [facility] | | | DNA | | | [...] | | | pneumoniae | Performed by [facility] [address] | | SACRED | | | DNA | [place] | | HEART | | | | [address] | | MEDICAL | | | | [...] | + + + + + | SHASHIHECTORBrooke KELLEYVIVI | [address] | [place] [address] | | | [facility] | | | | | NICK [...] [facility] | | | Arterial | by [place] [address], | mmol/L | SACRED | | | | [place] [address] | | HEART | | | |Performed by [facility] [address], [place] [address] | | MEDICAL | | | | [...] + + | [facility] | [address] | [place] [address] | | | [facility] | | | | | LABORATORY [...] | | CENTER | | | | [facility] [address], | | LABORATORY | | | | [place] [address] | | [place] | | + + + + + + + + | Specimen | + + | Blood specimen | | (specimen) | + + + + + + + | Performing | Address | City/State/Zipcode | Phone Number | | Organization | | | | + + + + + | [facility] | [address] [place] | [place] [address] | | | HEART [facility] | | | | | NICK [...] | Calcium, pH | 1.33Comment: Please | 1.19 - 1.33 | [facility] | | | Normalized | [...] by | | | | | | [facility] [address], | | | | | | [place] [address] | | | | + + + + + + + + | Specimen | + + | Blood specimen | | (specimen) | + + + + + + + | Performing | Address | City/State/Zipcode | Phone Number | | Organization | | | | + + + + + | [facility] | [address] | [place] [address] | | | [facility] | | | | | LABORATORY [...] | | | ARTERIAL | Performed by [facility] [address] | | SACRED | | | | [address] [place] | | HEART | | | | [address] | | MEDICAL | | | | [...] + + | [facility] | [address] | [place] [address] | | | [facility] | | | | | LABORATORY [...] [facility] | | | Source | by [place] [address], | | SACRED | | | | [place] [address] | | HEART | | | |Performed by [facility] [address], [place] [address] | | MEDICAL | | | | [...] + + | GRACE AGU[facility] | [address] | [place] [address] | | | [facility] | | | | | LABORATORY [...] unspecified provider. | | + + + from Last [...] | [employer] | [employer] | [id number] | 10/18/19 | [phone] | | Medica | | MEDICAID HMO | HEALTH | | 14-Pre | 1 | | id | | | MDCD | | sent | | | | | | [place]MO [place] | | | | | | + +--------+ +--------+ +---------+--------+ | [employer] | [employer] | [id number] | | [phone] | | Medica | | MEDICAID HMO | HEALTH | | 018-Pr | 1 | | id | | | MDCD | | esent | | | | | | [place]MO [place] | | | | | | + +--------+ +--------+ +---------+--------+ | [employer] | [employer] | [id number] | 05/20/19 | [phone] | | Medica | | MEDICAID HMO | HEALTH | | 19-Pre | 1 | | id | | [...] | + +--------+ +--------+ + + | Kait Min | Person | Self [birth year] | [address] | | | al/Fam | | 1971 | [phone] | Place [place], [place] | | | kristy | | | 5 (Home) | [address] | + +--------+ +--------+ + + | Kait Min | Person | Self | [birth year] | [address] | | | al/Fam | | 1971 | [phone] | Place [place], [place] | | | kristy | | | 5 (Home) | [address] | + +--------+ +--------+ + + | Kait Min | Person | Self | [birth year] | [address] | | | al/Fam | | 1971 | [phone] | Place [place] | | | kristy | | | 5 (Home) | [phone] | + +--------+ +--------+ + + Advance Directives + + + + + | Type | Date Recorded | Patient | Explanation | | | | Medical Assembly | | + + + + + | Power of | | | | | Rail Splitter | | | | + + + + + | Advance | 04/18/2019 | | | | Directive | 12:03 PM | | | + + + + + + + + + + | Code Status | Date | Date | Comments | | | Activated | Inactivated | | + + + + + | Full Code | 06/22/2019 | 06/23/2019 | | | | 2:38 PM | 5:04 PM | | + + + + + + + + +---+ | | | | | + + + +---+ | Full Code | 06/21/2019 | 06/22/2019 | | | by default | 8:06 PM | 2:38 PM | | | - TBD | | | | + + + +---+ + + + +---+ | | | | | + + + +---+ | Full Code | 08/15/2018 | 08/19/2018 | | | | 2:12 PM | 3:06 PM | | + + + +---+
--- OUTSIDE RECORDS SUMMARY | ~2019-09-02 | XMS | Clinical Summary ---
Demographics + + + | Address | [address] [facility] | | | [place] [address] | + + + | Home Phone [...] | | | | | [place] [address] | | + + + + + | Robson Min | ECON | Unknown | | + + + + + | Isabella Whitehead | ECON | Unknown | | + + + + + | Seven Neff | ECON | Unknown | | + + + + + Care Team Providers + +------+ + | Care Watch Crystal Grinder Name | Role | Phone | [...] Overview: Overview: | | Naveen Becerra- in [place] | | | | IMO Problem List [...] | | | | disorder ([facility]); | | | | | | Anxiety; Bipolar II | | | | | | disorder ([facility]); | | | | | | Chronic obstructive | | | | | | pulmonary disease, | | | | | | unspecified COPD | | | | | | type ([facility]); | | | | | | Hypercarbic cerebral | | | | | | edema ([facility]); | | | | | | [...] | | | ([facility]) (Primary Dx); | | | | [...] | + + + + | INFLUENZA, [id number], | 03/09/2009 | | | UNSPECIFIED | [...] [place] | | | | | | [address] | | | | | | | | +--------+---------+ + + + | 11/05/ | Office | Neurology | Tariq, | | | 2019 | Visit | | Theo, [facility] [address] | | | | | | [address] [facility], | | | | | | [place] [address] | | | | | | [phone] | | | | | | | [...] | + +--------+ + + + | LA CHEMODERVATE | Routin | 07/06/2019 | Intractable [...] | | Sincerely, Jimbo Samayoa M.D. Neurologist [phone] | | | Electronically signed | | [...] | | | POC | Performed by [facility] [address] | | SACRED | | | | [address] [place] | | HEART | | | | [address] | | MEDICAL | | | | [...] + + | GRACE AGUERO | [address] | [place] [address] | | | [facility] | | | | | LABORATORY CERNER [...] ENCE | | | Immature | by [facility] [address], | K/uL | SACRED | | | Granulocyte | [place] [address] | | HEART | | | s |Performed by [facility] [address], [place] [address] | | MEDICA L | | | [...] + + | SHASHISAMIR AGUERO | [address] | [place] [address] | | | [facility] | | | | | LABORATORY CERNER [...] LIZ CE | | | | by [facility] [address], | | SACRED | | | | [place] [address] | | HEART | | | |Performed by [facility] [address], [place] [address] | | MEDICAL | | | | [...] + | [facility]CR[facility] | [address] | [place] [address] | | | [facility] | [...] | | LABORATORY | | | | [facility] [address] [place], | | CERNER | | | | [place] [address] | | | | + + + + + + + + | Specimen | + + | Blood specimen | | (specimen) | + + + + + + + | Performing | Address | City/State/Zipcode | Phone Number | | Organization | | | | + + + + + | GRACE AGUERO | [address] | [place] [address] | | | [facility] | | | | | LABORATORY AVERYNER [...] PROVIDE NCE | | | | by [facility] [address], | | SACRED | | | | [place] [address] | | HEART | | | |Performed by [facility] [address], [place] [address] | | MEDICAL | | | | [...] + | PROVIDESAMIR AGUERO | [address] | [place] [address] | | | [facility] | | | | | LABORATORY CERNER [...] | | LABORATORY | | | | [facility] [address], | | CERNER | | | | [place] [address] | | | | + + + + + + + + | Specimen | + + | Blood specimen | | (specimen) | + + + + + + + | Performing | Address | City/State/Zipcode | Phone Number | | Organization | | | | + + + + + | GRACE AGUERO | [address] | [place] [address] | | | [facility] | | | | | NICK GUTIÉRREZ [...] | | | | | battery.Performed by [facility] | | | | | | [address] [place], | | | | | | [place] [address] | | | | + + + [...] + | GRACE AGUERO | [address] | [place] [address] | | | [facility] | | | | | LABORATORY CERNER [...] | TRACEMASTER | | Duration:232 msP Horizontal Bonsall:14 degP Front Bonsall:55 degQ Onset:512 | | | msQRSD Interval:100 msQT Interval:424 msQTcB:465 msQTcF:451 msQRS | | | Horizontal Bonsall:257 degQRS Bonsall:-35 degI-40 Horizontal Bonsall:91 degI-40 | | | Front B[place]:31 degT-40 Horizontal Bonsall:254 degT-40 Front Bonsall:-44 degT | | | Horizontal Bonsall:62 degT Wave Bonsall:45 degS-T Horizontal Bons[place]:75 degS-T | | | Front Bonsall: degSeverity:- ABNORMAL ECG -INTERP:SINUS | | | RHYTHMINTERP:FIRST DEGREE AV BLOCKINTERP:LEFT AXIS | | | DEVIATIONINTERP:CONSIDER ANTERIOR INFARCTElectronically signed by: , | | | 06-22-2019 06:23:26 | | |QTcF:451 ms | | |QRS Horizontal Bonsall:257 deg | | |QRS Bonsall:-35 deg | | |I-40 Horizontal Bonsall:91 deg | | |I-40 Front Bonsall:31 deg | | |T-40 Horizontal Bonsall:254 deg | | |T-40 Front Bonsall:-44 deg | | |T Horizontal Bonsall:62 deg | | |T Wave Bonsall:45 deg | | |S-T Horizontal Bonsall:75 deg | | |S-T Front Bonsall: deg | | |Severity:- ABNORMAL ECG - [...] + | TERESAEMILY ALEXANDRA | [address] | [place] [address] | [phone] | + + + + + XR [...] ANKUSH GARCESE | | | s | [facility] [address], | | SACRED | | | | [place] | | HEART | | | |Performed by [facility] [address], [place] | | MEDICA L | | [...] + + | GRACE [facility]CRED | [address] | [place], [place] | | | [facility] | | | | | LABORATORY CERNER [...] | | | | | | by [facility] [address], | | | | | | [place] [address] | | | | + + + + + + + + | Specimen | + + | Blood specimen | | (specimen) | + + + + + + + | Performing | Address | City/State/Zipcode | Phone Number | | Organization | | | | + + + + + | [facility] | [address] | [place] [address] | | | HEART [facility] | | | | | [...] PROVIDE NCE | | | | by [facility] [address], | | SACRED | | | | [place] [address] | | HEART | | | |Performed by [facility] [address], [place] [address] | | MEDICAL | | | | [...] + + | GRACE AGUERO | [address] | [place] [address] | | | [facility] | | | | | NICK GUTIÉRREZ [...] [facility] | | | Venous | by [facility] [address], | mmol/L | SACRED | | | | [place] [address] | | HEART | | | |Performed by [facility] [address], [place] [address] | | MEDICAL | | | | [...] + | SHASHIHECTORBrooke BENSONVIVI | [address] | [facility] [address] [place] [address] | | | [facility] | | | | | LABORATORY BROCK [...] | | | | | formula.Performed by [facility] | | | | | | [address], | | | | | | [place] [address] | | | | + + + + + + + + | Specimen | + + | Blood specimen | | (specimen) | + + + + + + + | Performing | Address | City/State/Zipcode | Phone Number | | Organization | | | | + + + + + | GRACE AGUERO | [address] | [place] [address] | | | [facility] | | | | | LABORATORY CERNER [...] | [facility] | | | SERUM/PLASM | [facility] [address], | | SACRED | | | A | [place] [address] | | HEART | | | |Performed by [facility] [address], [place] [address] | | MEDICAL | | | | [...] + | BLUE SACRED | [address] | [place] [address] | | | [facility] | | | | | LABORATORY CERNER [...] | | | pneumoniae | Performed by [facility] [address] | | SACRED | | | DNA | [place] | | HEART | | | | [address] | | MEDICAL | | | | [...] + + | SHASHIHECTORBrooke KELLEYVIVI | [address] | [place] [address] | | | [facility] | | | | | NICK GUTIÉRREZ [...] [facility] | | | Arterial | by [place] [address], | mmol/L | SACRED | | | | [place] [address] | | HEART | | | |Performed by [facility] [address], [place] [address] | | MEDICAL | | | | [...] + + | GRACE AGUERO | [address] | [place] [address] | | | [facility] | | | | | LABORATORY CERNER [...] | | CENTER | | | | [facility] [address], | | LABORATORY | | | | [place] [address] | | BROCK | | + + + + + + + + | Specimen | + + | Blood specimen | | (specimen) | + + + + + + + | Performing | Address | City/State/Zipcode | Phone Number | | Organization | | | | + + + + + | GRACE AGUERO | [address] | [place] [address] | | | HEART [facility] | | | | | [...] by | | | | | | [facility] [address], | | | | | | [place] [address] | | | | + + + + + + + + | Specimen | + + | Blood specimen | | (specimen) | + + + + + + + | Performing | Address | City/State/Zipcode | Phone Number | | Organization | | | | + + + + + | GRACE AGUERO | [address] | [place] [address] | | | [facility] | | | | | [...] | | | ARTERIAL | Performed by [facility] [address] | | SACRED | | | | [address] [place] | | HEART | | | | [address] | | MEDICAL | | | | [...] + + | GRACE [facility] | [address] | [place] [address] | | | [facility] | | | | | LABORATORY CERNER [...] [facility] | | | Source | by [place] [address], | | SACRED | | | | [place] [address] | | HEART | | | |Performed by [facility] [address], [place] [address] | | MEDICAL | | | | [...] + + | GRACE AGUERO | [address] | [place] [address] | | | [facility] | | | | | LABORATORY BROCK [...] | [employer] | MOD[employer] | [id number] | 10/18/19 | [phone] | | Medica | | MEDICAID HMO | HEALTH | | 14-Pre | 1 | | id | | | MDCD | | sent | | | | | | [place] | | | | | | + +--------+ +--------+ +---------+--------+ | [employer] | MODA | [id number] | | [phone] | | Medica | | MEDICAID HMO | HEALTH | | 018-Pr | 1 | | id | | | MDCD | | esent | | | | | | [place]MO [place] | | | | | | + +--------+ +--------+ +---------+--------+ | [employer] | MODA | [id number] | 05/20/19 | [phone] | | Medica | | MEDICAID HMO [...] kristy | | | 5 (Home) | [address] | + +--------+ +--------+ + + | Kait Min | Person | Self | [birth year] | [address] | | | al/Fam | | 1971 | [phone] | Place [place], [place] | | | kristy | | | 5 (Home) | [address] | + +--------+ +--------+ + + | Kait Min | Person | Self | [birth year] | | [address] | | | al/Fam | | 1971 | [phone] | Place [place] | | | kristy | | | 5 (Home) | [address] | + +--------+ +--------+ + + Advance Directives + + + + + | Type | Date Recorded | Patient | Explanation | | | | Fast Brim Pouncer | | + + + + + | Power of | | | | | Costumer Assistant | | | | + + + [...]
--- OUTSIDE RECORDS SUMMARY | ~2019-09-02 | XMS | Encounter Summary ---
Demographics + + + | Address | [address] | | | [place] [address] | + + + | Home Phone [...] | | | | | [place] [address] | | + + + + + | Robsno Min | ECON | Unknown | | + + + + + | Isabella Whitehead | ECON | Unknown | | + + + + + | Seven Neff | ECON | Unknown | | + + + + + Care Team Providers + +------+ + | Care Road Service Locksmith Name | Role | Phone | + [...] | | | Pulmonology | obstructive | [address] | [address] | | | | | pulmonary | [address] | [place], | | | | | disease, | [place] | [place] [address] | | | | | unspecified | [address] | Phone: | | | | | ([facility]) | [place] | [phone] | | | | | Procedures | [address] | Fax: | | | | | F/U | Phone: | [phone] | | | | | | [phone] | | +--------+--------+ + + + + Encounter Details +--------+---------+ + + + | Date | Type | Department | Care Team | Description | +--------+---------+ + + + | 05/26/ | Office | [facility] | Navdeep Grande, | COPD, mild (HCC) | | 2017 | Visit | PULMONARY [address] | MD [address] | (Primary Dx); | | | | [place], | [place], [place] | Alveolar | | | | [place] [address] | [address] | hypoventilation | | | | [phone] | | | +--------+---------+ + + + [...] quit within a month, and do it. [place] to your quit plan Talk to your [...] Track your triggers What gives you that H-urms-s-cigarette feeling? List all the situations that make [...] wants to stop smoking. Date Last Reviewed: 10/18/20151999[address]672-[address] [place] [place] [address]. All righ ts reserved. 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 Knee pain CHRONIC [...] mouth 2 times daily., Disp: , Rfl: rjxaucafhu-qzgzfxj-ygklqheq (BUTALBITAL COMPOUND/ASA) per tablet, One tablet by [...] 50,000 Units by mouth Once a w bois forte., Disp: , Rfl: fluticasone-salmeterol (ADVAIR HFA) 45-21 [...] [place] | | | | | | [address] | | | | | | | | +--------+---------+ + + + | 11/05/ | Office | Neurology | Tariq, | | | 2019 | Visit | | AN[address]ELA Ven[address]as [address] | | | | | | [address] [place], | | | | | | [place] [address] | | | | | | [phone] | | | | | | | | +--------+---------+ + + + documented as of this encounter Visit Diagnoses + + | Diagnosis | + + | COPD, mild (HCC) - Primary Chronic airway obstruction, not elsewhere classified | + + | Alveolar hypoventilation Other dyspnea and respiratory abnormality | + + documented in this encounter
--- OUTSIDE RECORDS SUMMARY | ~2019-09-02 | XMS | Encounter Summary ---
Demographics + + + | Address | [address] | | | [place] [address] | + + + | Home Phone [...] | | | | | [place] [address] | | + + + + + Care Team Providers + +------+ + | Care Rubber Roller Grinder Name | Role | Phone | + +------+ + PCP | Unavailable | + +------+ + Encounter Details +--------+ + + + + | Date | Type | Department | Care Team | Description | +--------+ + + + + | 11/03/ | Respiratory | | Other, Faculty | | | 2006 | Therapy | | [phone] | | +--------+ + + + + [...] | | | Y | Edwina Edwards, FOUNDER CHAIRMAN AND CHIEF CREATIVE OFFICER | | | | + + [...] [facility] | [address] | [place], [place] | | | DIAGNOSTICS - | [place] | [address] | | | PULMONARY FUNCTION | | | | + + + + + documented in this encounter Visit Diagnoses Not on filedocumented in this encounter"
--- OUTSIDE RECORDS SUMMARY | ~2019-09-02 | XMS | Encounter Summary ---
Demographics + + + | Address | [address] | | | [place] [address] | + + + | Home Phone [...] | | | | | [place] [address] | | + + + + + | Robson Min | ECON | Unknown | | + + + + + | Isabella Whitehead | ECON | Unknown | | + + + + + | Seven Neff | ECON | Unknown | | + + + + + Care Team Providers + +------+ + | Care Social Media Content Specialist Name | Role | Phone | [...] | | | | reflux | [address] | | | | | Abdominal | [address] | [address] | | | | | pain, | [place] | AVE | | | | | generalized | [address] | [place] | | | | | Procedures | Phone: | [address] | | | | | [place] Gastric | [phone] | Phone: | | | | | Emptying | Fax: | [phone] | | | | | | [phone] | Fax: | | | | | | | [phone] | +--------+--------+ + + + + Reason [...] | | | | | bowel | [address] | [address] | | | | | syndrome | [address] | [place] | | | | | Other | [place] | [place] [address] | | | | | specified | [address] | Phone: | | | | | gastritis | [place], [place] | [phone] | | | | | with | [address] | Fax: | | | | | hemorrhage | Phone: | [phone] | | | | | Unspecified | [phone] | | | | | | gastritis [...] | [address] [place] | [place], [place] | Dx); Esophageal | | | | [address] | [address] | reflux | | | | [address] | [phone] | | | | | [phone] | | | +--------+---------+ + + + [...] 50 mg by mouth 4 times daily. kpicedkeuz-irotdpn-oxowwgto (BUTALBITAL COMPOUND/ASA) per tablet One tablet by [...] Empyema lung ([facility]) 2006 right Knee pain CHRONIC TENSION HEADACHE [...] PDT GASTROENTEROLOGY [address] [place] [place] [address] FAX: [phone] OFFICE VISIT CHIEF COMPLAINT: Abdominal pain. HISTORY [...] panel. Cecilio Amato MD / JOB #: [id number] signed by Cecilio Amato MD at 09/20/2013 [...] | | | | | | [place] [address] | | | | | | [phone] | | | | | | | [...]
--- OUTSIDE RECORDS SUMMARY | ~2019-09-02 | XMS | Encounter Summary ---
Demographics + + + | Address | [address] | | | [place] [address] | + + + | Home Phone | | + + + | Preferred Language | Unknown | + + + | Marital Status | Single | + + + | Restorationism Affiliation | Unknown | + + + | Race | Unknown | + + + | Ethnic Group | Unknown | + + + Author + + + | Author | [facility] | | | and [place] | + + + | Organization | [facility] | | [...] | | | | | [place] [address] | | + + + + + | Robson Min | ECON | Unknown | | + + + + + | Isabella Whitehead | ECON | Unknown | | + + + + + | Seven Neff | ECON | Unknown | | + + + + + Care Team Providers + +------+ + | Care E Marketing Specialist Name | Role | Phone | + +------+ + | Bart Ba DO | PCP | | + +------+ + Encounter Details +--------+ + + + + | Date | Type | Department | Care Team | Description | +--------+ + + + + | 08/20/ | Imaging | [facility] | Provider, | | | 2018 | Exam | [facility]TER[facility] | MD [address] | | | | | IMAGING [address] | [address] | | | | | [address] | [place] [address] | | | | | [place] [address] | | | | | | [phone] | | | +--------+ + + + [...] [place] | | | | | | [address] | | | | | | | | +--------+---------+ + + + | 11/05/ | Office | Neurology | Tariq, | | | 2019 | Visit | | ANGELA Venegas [address] | | | | | | [address] [place], | | | | | | [place] [address] | | | | | | [phone] | | | | | | | [...]
--- OUTSIDE RECORDS SUMMARY | ~2019-09-02 | XMS | Encounter Summary ---
Demographics + + + | Address | [address] | | | [place] [address] | + + + | Home Phone [...] | | | | | [place] [address] | | + + + + + | Robson Min | ECON | Unknown | | + + + + + | Isabella Whitehead | ECON | Unknown | | + + + + + | Seven Neff | ECON | Unknown | | + + + + + Care Team Providers + +------+ + | Care School Cafeteria Head Cook Name | Role | Phone | [...] | | CLINIC [address] | [address] [facility], | | | | | [address] [place], | [place] [address] | | | | | [place] [address] | [phone] | | | | | [phone] | | | +--------+---------+ + + + [...] disor iented, swollen eye lids. Notified [place], FLOOR MOLDER, and ambulance called. Pt was put on 3 L Oxy gen per Theo, FLOOR MOLDER, O2 sats increased to 91 %. Ambulance [...] | | | | | [place] | | | | | | [address] | | | | | | | | +--------+---------+ + + + | 11/05/ | Office | Neurology | Tariq, | | | 2019 | Visit | | [address] | | | | | | [address] [facility] | | | | | | [place] [address] | | | | | | [phone] | | | | | | | | +--------+---------+ + + + documented as of this encounter Visit Diagnoses + + | Diagnosis | + + | Confusion and disorientation | + + documented in this encounter"
--- OUTSIDE RECORDS SUMMARY | ~2019-09-02 | XMS | Clinical Summary ---
Demographics + + + | Address | [address] | | | [place] [address] | + + + | Home Phone [...] | | | | | [place] [address] | | + + + + + Care Team Providers + +------+ + | Care Multiple Drum Sander Helper Name | Role | Phone | + +------+ + | Bart Ba DO | PCP | | + +------+ + Source Comments [facility] is fully live on both [facility] and [facility] InPatient.[facility]3] Allergies + + + + + + [...]
--- OUTSIDE RECORDS SUMMARY | ~2019-09-02 | XMS | Encounter Summary ---
Demographics + + + | Address | [address] | | | [place] [address] | + + + | Home Phone [...] | | | | | [place] [address] | | + + + + + | Robson Min | ECON | Unknown | | + + + + + | Isabella Whitehead | ECON | Unknown | | + + + + + | Seven Neff | ECON | Unknown | | + + + + + Care Team Providers + +------+ + | Care Business Department Chair Name | Role | Phone | + [...] Medicine | Nocturnal | Neno [place]ito | [address] | | | Required | | hypoxia | MD [address] | [place] | | | | | Chronic | [address] [place] | [place], | | | | | obstructive | [facility] | [place] [address] | | | | | pulmonary | [place], [place] | Phone: | | | | | disease, | [address] | [phone] | | | | | unspecified | Phone: | Fax: | | | | | COPD type | [phone] | [phone] | | | | | (HCC) | Fax: | | | | | | Procedures | [phone] | | | | | | DC POLYSOM | | | | | | [...] (Primary Dx); | | | | [address] [place] | [address] [place] | Chronic obstructive | | | | [place] [address] | [place] [address] | pulmonary disease, | | | | [phone] | [phone] | unspecified COPD | | | | [...] PDTThis patient was felt to have severe inside sales representative sandy obstructive pulmonary disease comes in for [...] breaths does not meet criteria for an special procedures tech ea or hypopnea. Sleep Architecture: Lights out [...] obstructive apneas, 0 mixed apneas, 0 central special procedures tech eas, 22 hypopneas, and 12 Respiratory Effort [...] signed by: Navdeep [place] MD 09/22/2018 14:54 [facility] BP 110/80 | Pulse 95 | Resp [...] [place] | | | | | | [address] | | | | | | | | +--------+---------+ + + + | 11/05/ | Office | Neurology | Tariq, | | | 2019 | Visit | | Theo, RUBBING BED OPERATOR [address] | | | | | | [address] [facility], | | | | | | [place] [address] | | | | | | [phone] | | | | | | | | +--------+---------+ + + + + + +--------+ + + | Name | Type | Priori | Associated Diagnoses | Order Schedule | | | | ty | | | + + +--------+ + + | * [facility] - | Outpatient | [...]
--- OUTSIDE RECORDS SUMMARY | ~2019-09-02 | XMS | Encounter Summary ---
Demographics + + + | Address | [address] | | | [place] [address] | + + + | Home Phone [...] | | | | | [place] [address] | | + + + + + | Robson Min | ECON | Unknown | | + + + + + | Isabella Whitehead | ECON | Unknown | | + + + + + | Seven Neff | ECON | Unknown | | + + + + + Care Team Providers + +------+ + | Care Debeader Name | Role | Phone | + [...] + + | 08/29/ | Telephone | [facility] [place] | Navdeep Grande, | Other (Advair) | | 2019 | | PULMONARY [address] | MD [address] | | | | | [place], | [place] | | | | | [place] [address] | [address] | | | | | [phone] | | | +--------+ + + + [...] [place] | | | | | | [address] | | | | | | | | +--------+---------+ + + + | 11/05/ | Office | Neurology | Tariq, | | | 2019 | Visit | | ANGELA Venegas [address] | | | | | [address] [place], | | | | | | [place] [address] | | | | | | [phone] | | | | | | | | +--------+---------+ + + + documented as of this encounter Visit Diagnoses Not on filedocumented in this encounter"
--- OUTSIDE RECORDS SUMMARY | ~2019-09-02 | XMS | Encounter Summary ---
Demographics + + + | Address | [address] | | | [place] [address] | + + + | Home Phone [...] | | | | | [place] [address] | | + + + + + | Robson Min | ECON | Unknown | | + + + + + | Isabella Whitehead | ECON | Unknown | | + + + + + | Seven Neff | ECON | Unknown | | + + + + + Care Team Providers + +------+ + | Care Refining Still Operator Name | Role | Phone [...] Sleep | Diagnoses | Harjinder, | [facility] | | | Services | Medicine | Alveolar | MD Navdeep | [facility] | | | Required | | hypoventilat | [address] | Disorder [address] | | | | | ion JESUSITA and | [address] | [address] | | | | | COPD | [place], | [place], | | | | | overlap | [place] [address] | [place] [address] | | | | | syndrome | Phone: | Phone: | | | | | ([facility]) | [phone] | [phone] | | | | | | Fax: | Fax: | | | | | | [phone] | [phone] | +--------+ + + + + + [...] | | | Pulmonology | (chronic | [address] | [address] | | | | | obstructive | [address] | [place] | | | | | pulmonary | [place] | [place] [address] | | | | | disease) | [address] | Phone: | | | | | (HCC) | [place] | [phone] | | | | | Procedures | [address] | Fax: | | | | | F/U APPEver CRUZ | Phone: | [phone] | | | | | DARRICK GRANDE | [phone] | | | | | | 11/19/17 | | | +--------+--------+ + + + + Encounter Details +--------+---------+ + + + | Date | Type | Department | Care Team | Description | +--------+---------+ + + + | 05/20/ | Office | [facility] | Navdeep Grande, | Alveolar | | 2019 | Visit | PULMONARY [address] | MD [address] | hypoventilation | | | | [place], | [place] | (Primary Dx); COPD, | | | | [place] [address] | [address] | mild ([facility]); Tobacco | | | | [phone] | | use disorder; | | | [...] 50,000 Units by mouth Once a w [place]., Disp: , Rfl: fluticasone-salmeterol (ADVAIR DISKUS) 250-50 [...] [place] | | | | | | [address] | | | | | | | | +--------+---------+ + + + | 11/05/ | Office | Neurology | Tariq, | | | 2019 | Visit | | [address]A [address] | | | | | | [address] [facility], | | | | | | [place] [address] | | | | | | [phone] | | | | | | | [...]
--- OUTSIDE RECORDS SUMMARY | ~2019-09-02 | XMS | Encounter Summary ---
Demographics + + + | Address | [address] | | | [place] [address] | + + + | Home Phone [...] | | | | | [place] [address] | | + + + + + | Robson Min | ECON | Unknown | | + + + + + | Isabella Whitehead | ECON | Unknown | | + + + + + | Seven Neff | ECON | Unknown | | + + + + + Care Team Providers + +------+ + | Care Brush Holder Assembler Name | Role | Phone | [...] | MED CTR EXTERNAL | MD Shira [address] | | | | | IMAGING [address] | [address] | | | | | [address] | [place] [address] | | | | | [place] [address] | | | | | | [phone] | | | +--------+ + + + [...] [place] | | | | | | [address] | | | | | | | | +--------+---------+ + + + | 11/05/ | Office | Neurology | Tariq, | | | 2019 | Visit | | [address]A Venegas [address] | | | | | | [address] [place], | | | | | | [place] [address] | | | | | | [phone] | | | | | | | [...]
--- OUTSIDE RECORDS SUMMARY | ~2019-09-02 | XMS | Encounter Summary ---
Demographics + + + | Address | [address] | | | [place] [address] | + + + | Home Phone [...] Author | [facility] | + + + | Organization | [facility] | + + + | Address | Unknown | + + + | Phone | Unavailable | + + + Support + + + + + | Name | Relationship | Address | Phone | + + + + + | Scot Johnson | ECON | [address] | | | | | [place] [address] | | + + + + + Care Team Providers + +------+ + | Care Double Backer Name | Role | Phone | + [...] as of this encounter Progress Notes Interface, Pony Ride Attendant In - 05/02/2006 2:20 PM [facility] CLINIC DATE: 11/12/97 RHEUMATOLOGY CLINIC CHIEF [...] the family. SOCIAL HISTORY: She lives in [place], [place] with her son and boyfriend. She [...] Sulindac and Prednisone for the moment. The intermediate goal will be to wean the Prednisone [...] M.D. Resident, Internal Medicine Deyvi Lainez M.D. Etl Analyst Developer, Rheumatology ES:aster documented in this encounter Plan of Treatment Not on filedocumented as of this encounter Visit Diagnoses Not on filedocumented in this encounter
--- OUTSIDE RECORDS SUMMARY | ~2019-09-02 | XMS | Encounter Summary ---
Demographics + + + | Address | [address] | | | [place] [address] | + + + | Home Phone [...] | | | | | [place] [address] | | + + + + + Care Team Providers + +------+ + | Care Analyst Name | Role | Phone | [...] | | | | | | [place] [address] | | +--------+ + + + + [...] + +---------+ + + | [facility] DEPARTMENT OF | | | | | [...] + +---------+ + + | [facility] DEPARTMENT OF | | | | | RADIOLOGY | | | | + +---------+ + + documented in this encounter Visit Diagnoses Not on filedocumented in this encounter"
--- OUTSIDE RECORDS SUMMARY | ~2019-09-02 | XMS | Encounter Summary ---
Demographics + + + | Address | [address] | | | [place] [address] | + + + | Home Phone [...] | | | | | [place] [address] | | + + + + + | Robson Min | ECON | Unknown | | + + + + + | Isabella Whitehead | ECON | Unknown | | + + + + + | Seven Neff | ECON | Unknown | | + + + + + Care Team Providers + +------+ + | Care Electromechanical Equipment Assembler Name | Role | Phone | [...] | | disease, | [place], | [place] [address] | | | | | unspecified | [place] | Phone: | | | | | (HCC) | [address] | [phone] | | | | | Obstructive | Phone: | Fax: | | | | | sleep apnea | [phone] | [phone] | | | | | (adult) | Fax: | | | | | | (pediatric) | [phone] | | | | | | Procedures [...] [address] | hypoventilation | | | | [place], | [place] | (Primary Dx); COPD, | | | | [place] [address] | [address] | moderate (HCC); | | | | [phone] | | Hypoxemia; COPD, | | | [...] information carefully each time. Talk to your metal burrer regarding the use of this medicine in children. Special care may be needed. What side effects may I notice from receiving this medicine? Side effects that you should report to your doctor or health geriatric care manager as soon as p ossible: allergic reactions like skin rash, itching or hives, swelling of the face, lips, or tong ue anxious breathing problems suicidal thoughts or other mood changes trouble sleeping weight loss Side effects that usually do not require medical attention (report to your doctor or health geriatric care manager if they continue or are bothersome): back pain diarrhea dizziness general ill feeling or flu-like symptoms headache loss of appetite nausea, vomiting What may interact with this medicine? carbamazepine cimetidine enoxacin erythromycin fluvoxamine ketoconazole phenobarbital phenytoin rifampicin Bobo's wort What if I miss a dose? [...] Acid reflux disease Bipolar 1 disorder ([facility]) CHRONIC TENSION HEADACHE Classical migraine without mention of intractable migraine Diabetes mellitus, type 2 ([facility]) Empyema lung ([facility]) 2005 right GI bleeding Hypercholesterolemia Hypertension Hypothyroidism IBS (irritable bowel syndrome) Knee pain Lymphedema Nausea and vomiting Nocturia Obesity Panic anxiety syndrome Pneumonia Pyoderma gangreosum-LE RA (rheumatoid arthritis) ([facility]) Followed by Dr. Becerra Rheumologist in [place] Reflux esophagitis Restless leg syndrome Urinary [...] 50,000 Units by mouth Once a w [place]., Disp: , Rfl: fluticasone-salmeterol (ADVAIR HFA) 115-21 [...] daily., Disp: , Rfl: Respiratory Therapy Supplies [facility], Portable oxygen concentrator to provide O2 at [...] QUADR W/PRES (PED/ADOL/ADULT) MULTIDOSE 01/27/2017, 02/10/2018 INFLUENZA, [id number], UNSPECIFIED 03/09/2009 INFLUENZA, UNSPECIFIED FORMULATION 04/27/2000, 02/04/2011, [...] pack of cigarettes a day. Her toba business account manager is now down to half a pack [...] [place] | | | | | | [address] | | | | | | | | +--------+---------+ + + + | 11/05/ | Office | Neurology | Tariq, | | | 2019 | Visit | | [address]A [address] | | | | | | [address] [place], | | | | | | [place] [address] | | | | | | [phone] | | | | | | | [...]
--- OUTSIDE RECORDS SUMMARY | ~2019-09-02 | XMS | Encounter Summary ---
Demographics + + + | Address | [address] | | | [place] [address] | + + + | Home Phone [...] | | | | | [place] [address] | | + + + + + | Robson Min | ECON | Unknown | | + + + + + | Isabella Whitehead | ECON | Unknown | | + + + + + | Seven Neff | ECON | Unknown | | + + + + + Care Team Providers + +------+ + | Care Hydrogeology Professor Name | Role | Phone | [...] RN | Alveolar | | | | [place], | | hypoventilation | | | | [place] [address] | | | | | | [phone] | | | +--------+ + + + [...] [place] | | | | | | [address] | | | | | | | | +--------+---------+ + + + | 11/05/ | Office | Neurology | Tariq, | | | 2019 | Visit | | [address]A Ven[address] | | | | | | [address] [place], | | | | | | [place] [address] | | | | | | [phone] | | | | | | | | +--------+---------+ + + + documented as of this encounter Visit Diagnoses + + | Diagnosis | + + | COPD, mild (HCC) Chronic airway obstruction, not elsewhere classified | + + | Alveolar hypoventilation Other dyspnea and respiratory abnormality | + + documented in this encounter"
--- OUTSIDE RECORDS SUMMARY | ~2019-09-02 | XMS | Encounter Summary ---
Demographics + + + | Address | [address] | | | [place] [address] | + + + | Home Phone [...] | | | | | [place] [address] | | + + + + + | Robson Min | ECON | Unknown | | + + + + + | Isabella Whitehead | ECON | Unknown | | + + + + + | Seven Neff | ECON | Unknown | | + + + + + Care Team Providers + +------+ + | Care Basic Sciences Dean Name | Role | Phone | + [...] | nocturnal pulse | | | | [place], | [place], [place] | oximetry on O2 at 1 | | | | [place] [address] | [address] | l/m) | | | | [phone] | | | +--------+ + + + [...] [place] | | | | | | [address] | | | | | | | | +--------+---------+ + + + | 11/05/ | Office | Neurology | Tariq, | | | 2019 | Visit | | [address]A Ven[address] | | | | | | [address] [place], | | | | | | [place] [address] | | | | | | [phone] | | | | | | | | +--------+---------+ + + + documented as of this encounter Visit Diagnoses Not on filedocumented in this encounter"
--- OUTSIDE RECORDS SUMMARY | ~2019-09-02 | XMS | Encounter Summary ---
Demographics + + + | Address | [address] | | | [place] [address] | + + + | Home Phone [...] | | | | | [place] [address] | | + + + + + Care Team Providers + +------+ + | Care Pasting Inspector Name | Role | Phone | + +------+ + PCP | Unavailable | + +------+ + Encounter Details +--------+ + + + + | Date | Type | Department | Care Team | Description | +--------+ + + + + | 05/15/ | Results | | Other, Faculty | | | 2000 | Only | | [phone] | | +--------+ + + + + [...] CLIA certified | | | lab at [facility]. The patient will not be charged. Reviewed by Jana | | | Mariola, Ph.D. | | + + + + + + + + | Performing | Address | City/State/Zipcode | Phone Number | | Organization | | | | + + + + + | [facility] DEPARTMENT | [address] | [place] [address] | | | PATHOLOGY | [address] | | | + + + + + | [facility] DEPARTMENT OF | [address] | [place] [address] | | | PATHOLOGY | [address] | | | + + + + + documented in this encounter Visit Diagnoses Not on filedocumented in this encounter"
--- OUTSIDE RECORDS SUMMARY | ~2019-09-02 | XMS | Encounter Summary ---
Demographics + + + | Address | [address] | | | [place] [address] | + + + | Home Phone [...] | | | | | [place] [address] | | + + + + + | Robson Min | ECON | Unknown | | + + + + + | Isabella Whitehead | ECON | Unknown | | + + + + + | Seven Neff | ECON | Unknown | | + + + + + Care Team Providers + +------+ + | Care Combiner Name | Role | Phone | + [...] | | | Pulmonology | airway | [address] | [address] | | | | | obstruction, | [address] | [place], | | | | | not | [place] | [place] [address] | | | | | elsewhere | [address] | Phone: | | | | | classified | [place] | [phone] | | | | | Procedures | [address] | Fax: | | | | | [place] OFFICE | Phone: | [phone] | | | | | OUTPATIENT | [phone] | | | | | | VISIT [...] abnormal finding of | | | | [place], | [place], [place] | lung field (Primary | | | | [place] [address] | [address] | Dx); COPD, mild | | | | [phone] | | (HCC); Chronic | | | [...] not start to improve within 24 hours 6228-6991 [employer] [place]. [address] [place] [address]. All righ ts reserved. This information is [...] 4 times daily., Disp: , Rfl: ; xepzgotmmu-muprckm-exopccnu (BUTALBITA L COMPOUND/ASA) per tablet, One tablet [...] [place] | | | | | | [address] | | | | | | | | +--------+---------+ + + + | 11/05/ | Office | Neurology | Tariq, | | | 2019 | Visit | | CLAUDIO Venegas[address] | | | | | | [address] [facility] [place], | | | | | | [place] [address] | | | | | | [phone] | | | | | | | [...]
--- OUTSIDE RECORDS SUMMARY | ~2019-09-02 | XMS | Encounter Summary ---
Demographics + + + | Address | [address] | | | [place] [address] | + + + | Home Phone [...] | | | | | [place] [address] | | + + + + + Care Team Providers + +------+ + | Care Clerk Cashier Name | Role | Phone | + +------+ + PCP | Unavailable | + +------+ + Encounter Details +--------+ + + + + | Date | Type | Department | Care Team | Description | +--------+ + + + + | 10/31/ | Respiratory | | Other, Faculty | | | 2006 | Therapy | | [phone] | | +--------+ + + + + [...] | | | | | | Rick, PEDIATRIC LICENSED PRACTICAL NURSE | | | | + + [...] [facility] | [address] | [place], [place] | | | DIAGNOSTICS - | [address] | [address] | | | PULMONARY FUNCTION | | | | + + + + + documented in this encounter Visit Diagnoses Not on filedocumented in this encounter"
--- OUTSIDE RECORDS SUMMARY | ~2019-09-02 | XMS | Encounter Summary ---
Demographics + + + | Address | [address] | | | [place] [address] | + + + | Home Phone [...] | | | | | [place] [address] | | + + + + + | Robson Min | ECON | Unknown | | + + + + + | Isabella Whitehead | ECON | Unknown | | + + + + + | Seven Neff | ECON | Unknown | | + + + + + Care Team Providers + +------+ + | Care Computer Video Game Designer Name | Role | Phone | [...] + | 11/03/ | Office | [facility] | Neno Walker | Nocturnal oxygen | | 2019 | Visit | SLEEP DISORDER [address] | MD Srinivas [address] | desaturation | | | | [address] [place] | [address] [place] | (Primary Dx); | | | | [place] [address] | [place] [address] | Chronic obstructive | | | | [phone] | [phone] | pulmonary disease, | | | | [...] breaths does not meet criteria for an multimedia designer ea or hypopnea. Sleep Architecture: Lights out [...] obstructive apneas, 0 mixed apneas, 0 central multimedia designer eas, 3 hypopneas, and 18 Respiratory Effort [...] signed by: Navdeep Grande MD 09/22/2018 14:54 [facility] BP 120/80 | Pulse 86 | Resp [...] [place] | | | | | | [address] | | | | | | | | +--------+---------+ + + + | 11/05/ | Office | Neurology | Tariq, | | | 2019 | Visit | | [address]A [address] | | | | | | [address] [place], | | | | | | [place] [address] | | | | | | [phone] | | | | | | | [...]
--- OUTSIDE RECORDS SUMMARY | ~2019-09-02 | XMS | Encounter Summary ---
Demographics + + + | Address | [address] | | | [place] [address] | + + + | Home Phone [...] | | | | | [place] [address] | | + + + + + | Robson Min | ECON | Unknown | | + + + + + | Isabella Whitehead | ECON | Unknown | | + + + + + | Seven Neff | ECON | Unknown | | + + + + + Care Team Providers + +------+ + | Care Dumbwaiter Operator Name | Role | Phone | [...] | | CLINIC [address] | [place] | | | | | [address] [place], | [address] | | | | | [place] [address] | | | | | | [phone] | | | +--------+ + + + [...] [place] | | | | | | [address] | | | | | | | | +--------+---------+ + + + | 11/05/ | Office | Neurology | Tariq, | | | 2020 | Visit | | [address]A [address] | | | | | | [address] [place], | | | | | | [place] [address] | | | | | | [phone] | | | | | | | | +--------+---------+ + + + documented as of this encounter Visit Diagnoses Not on filedocumented in this encounter"
--- OUTSIDE RECORDS SUMMARY | ~2019-09-02 | XMS | Encounter Summary ---
Demographics + + + | Address | [address] | | | [place] [address] | + + + | Home Phone [...] [address] | | | | | [place] [address] | | + + + + + Care Team Providers + +------+ + | Care Sand Slinger Name | Role | Phone | + [...] | | | | | [facility], | | | | | | [place] [address] | | | | | | [phone] | | | +--------+ + + + [...] + + + | [facility] | [address] | [place] [address] | | | LABORATORY | | | [...] | + + + + + | [facility] DEPARTMENT OF | [address] | [place] [address] | | | PATHOLOGY | [address] | | | + + + + + | [place] DEPARTMENT OF | [address] | [place] [address] | | | PATHOLOGY | [address] | | | + + + + + documented in this encounter Visit Diagnoses Not on filedocumented in this encounter"
--- OUTSIDE RECORDS SUMMARY | ~2019-09-02 | XMS | Encounter Summary ---
Demographics + + + | Address | [address] | | | [place] [address] | + + + | Home Phone [...] | | | | | [place] [address] | | + + + + + Care Team Providers + +------+ + | Care Health And Safety Tech Name | Role | Phone | + +------+ + PCP | Unavailable | + +------+ + Encounter Details +--------+ + + + + | Date | Type | Department | Care Team | Description | +--------+ + + + + | 10/23/ | Respiratory | | Other, Faculty | | | 2006 | Therapy | | [phone] | | +--------+ + + + + [...] | | GAS/HUMIDIT | STANDBY. Yo Beckford, LAWN CARE TECHNICIAN | | | | | Y |Yo Beckford, LAWN CARE TECHNICIAN | | | | + + + [...] [facility] | [address] | [place], [place] | | | DIAGNOSTICS - | [address] | [address] | | | PULMONARY FUNCTION | | | | + + + + + documented in this encounter Visit Diagnoses Not on filedocumented in this encounter"
--- OUTSIDE RECORDS SUMMARY | ~2019-09-02 | XMS | Encounter Summary ---
Demographics + + + | Address | [address] | | | [place] [address] | + + + | Home Phone [...] + | Organization | [facility] | | | and [...] | | | | | [place] [address] | | + + + + + | Robson Min | ECON | Unknown | | + + + + + | Isabella Whitehead | ECON | Unknown | | + + + + + | Seven Neff | ECON | Unknown | | + + + + + Care Team Providers + +------+ + | Care Youth Ministry Director Name | Role | Phone | [...] Medicine | [place] | Neno [place] | [place] [address] | | | Required | | (obstructive | MD Srinivas [address] | [address] | | | | | sleep | [place] | [place], | | | | | apnea) | [facility] | [place] [address] | | | | | Nocturnal | [place], [place] | Phone: | | | | | oxygen | [address] | [phone] | | | | | desaturation | Phone: | Fax: | | | | | E66.2 | [phone] | [phone] | | | | | (ICD-10-CM) | Fax: | | | | | | - [phone] | [phone] | | | | | | (ICD-9-CM) [...] Sleep | Diagnoses | Harjinder | [facility] | | | Services | Medicine | Alveolar | MD Navdeep | [facility] | | | Required | | hypoventilat | [address] | Disorder [address] | | | | | ion JESUSITA and | [address] | [address] | | | | | COPD | [place], | [place], | | | | | overlap | [place] [address] | [place] [address] | | | | | syndrome | Phone: | Phone: | | | | | ([employer] | [phone] | [phone] | | | | | | Fax: | Fax: | | | | | | [phone] | [phone] | +--------+ + + + + + Encounter Details +--------+---------+ + + + | Date | Type | Department | Care Team | Description | +--------+---------+ + + + | 07/28/ | Office | [facility] | Neno Walker | JESUSITA (obstructive | | 2019 | Visit | SLEEP DISORDER [address] | MD Srinivas [address] | sleep apnea) | | | | [address] [place] | [address] [place] | (Primary Dx); | | | | [place] [address] | [place] [address] | Obesity | | | | [phone] | [phone] | hypoventilation | | | | | [...] Insomnia Severity Index Insomnia Severity Index 21 Minden Sleepiness Scale 1. Sitting and reading 3 [...] [place] | | | | | | [address] | | | | | | | | +--------+---------+ + + + | 11/05/ | Office | Neurology | Tariq, | | | 2019 | Visit | | [address]A [address] | | | | | | [address] [facility], | | | | | | [place] [address] | | | | | | [phone] | | | | | | | [...] + + +--------+ + + | * [facility] - | Outpatient | [...]
--- OUTSIDE RECORDS SUMMARY | ~2019-09-02 | XMS | Encounter Summary ---
Demographics + + + | Address | [address] | | | [place] [address] | + + + | Home Phone [...] | | | | | [place] [address] | | + + + + + Care Team Providers + +------+ + | Care Squirrel Man Name | Role | Phone | + +------+ + PCP | Unavailable | + +------+ + Encounter Details +--------+ + + + + | Date | Type | Department | Care Team | Description | +--------+ + + + + | 10/30/ | Respiratory | | Other, Faculty | | | 2006 | Therapy | | [phone] | | +--------+ + + + + [...] Hackett, | | | | | | PROGRAM MANAGER RN | | | | + + [...] [facility] | [address] | [place], [place] | | | DIAGNOSTICS - | [address] | [address] | | | PULMONARY FUNCTION | | | | + + + + + documented in this encounter Visit Diagnoses Not on filedocumented in this encounter"
--- OUTSIDE RECORDS SUMMARY | ~2019-09-02 | XMS | Encounter Summary ---
Demographics + + + | Address | [address] | | | [place] [address] | + + + | Home Phone [...] | | | | | [place] [address] | | + + + + + | Robson Min | ECON | Unknown | | + + + + + | Isabella Whitehead | ECON | Unknown | | + + + + + | Seven Neff | ECON | Unknown | | + + + + + Care Team Providers + +------+ + | Care Asbestos Abatement Worker Name | Role | Phone | + +------+ + | Bart Ba DO | PCP | | + +------+ + Encounter Details +--------+ + + + + | Date | Type | Department | Care Team | Description | +--------+ + + + + | 04/21/ | Hospital | [facility] | Conversion | Pain | | 2013 | Encounter | CONVERSION DEP [address] | Transaction, | | | | | [address] | Provider Unknown | | | | | [place] | | | | | | [address] | (Fax) | | | | | [phone] | | | +--------+ + + + [...] | 0 | 10/08/19 | | | [id number] | every 6 hours as | | [...] [place] | | | | | | [address] | | | | | | | | +--------+---------+ + + + | 11/05/ | Office | Neurology | Tariq, | | | 2019 | Visit | | [address]EGLA Ven[address]as [address] | | | | | | [address] [place], | | | | | | [place] [address] | | | | | | [phone] | | | | | | | [...]
--- OUTSIDE RECORDS SUMMARY | ~2019-09-02 | XMS | Encounter Summary ---
Demographics + + + | Address | [address] | | | [place] [address] | + + + | Home Phone [...] | | | | | [place] [address] | | + + + + + Care Team Providers + +------+ + | Care Dental Equipment Mechanic Name | Role | Phone | [...] | | | | | [place], | | | | | | [place] [address] | | | | | | [phone] | | | | | | | [...] | + +---------+ + + | [facility] DEPARTMENT OF | | | | | RADIOLOGY | | | | + +---------+ + + documented in this encounter Visit Diagnoses Not on filedocumented in this encounter"
--- OUTSIDE RECORDS SUMMARY | ~2019-09-02 | XMS | Encounter Summary ---
Demographics + + + | Address | [address] | | | [place] [address] | + + + | Home Phone [...] | | | | | [place] [address] | | + + + + + Care Team Providers + +------+ + | Care Safety Compliance Specialist Name | Role | Phone | [...] | | + +---------+ + + | [facility] DEPARTMENT OF | | | | | RADIOLOGY | | | | + +---------+ + + documented in this encounter Visit Diagnoses Not on filedocumented in this encounter"
--- OUTSIDE RECORDS SUMMARY | ~2019-09-02 | XMS | Encounter Summary ---
Demographics + + + | Address | [address] | | | [place] [address] | + + + | Home Phone [...] | | | | | [place] [address] | | + + + + + | Robson Min | ECON | Unknown | | + + + + + | Isabella Whitehead | ECON | Unknown | | + + + + + | Seven Neff | ECON | Unknown | | + + + + + Care Team Providers + +------+ + | Care Local Announcer Name | Role | Phone | + [...] | | disease, | [place], | [place] [address] | | | | | unspecified | [place] | Phone: | | | | | (HCC) | [address] | [phone] | | | | | Obstructive | Phone: | Fax: | | | | | sleep apnea | [phone] | [phone] | | | | | (adult) | Fax: | | | | | | (pediatric) | [phone] | | | | | | Procedures [...] [place] | Navdeep Grande, | COPD, mild ([facility]) | | 2019 | Visit | PULMONARY [address] | MD [address] | (Primary Dx); | | | | [place], | [place], [place] | Alveolar | | | | [place] [address] | [address] | hypoventilation; JESUSITA | | | | [phone] | | and COPD overlap | | [...] find a support program: Free national quitline: 812-HRRV-BMY (432-705-1389). Hospital quit-smoking programs. [place] [employer]: (541.406.9573). [place] [employer] (093-206-5811). Support at home is important too. Nonsmokers can offer praise and encouragement. If the smo ker in your life finds it hard to quit, encourage them to keep trying. Vzej-tvy-prjplet medicines Nicotine replacement therapymay make quittingeasier. Certain [...] to quit smoking, try these online resources: GrabInbox.gov "Clearing the Air" booklet from the National Cancer [place]: RedPath Integrated Pathology.gov/sites/defau lt/files/pdf/nlzgzrml-whk-gav-accessible.pdf Date Last Reviewed: 06/17/201619991649-[address] [place] [address], [place] [address]. All righ ts reserved. This information is [...] with prednisone and doxycycline. Unfortunately while in [facility] at a neurology appointment the patient had a presync opal episode. She also had apparently "run out" of her oxygen. She was subsequently admitt ed to the hospital in [facility]. They have had any acute pulmonary [...] changes Acid reflux disease Bipolar 1 disorder ([facility]) CHRONIC TENSION HEADACHE Classical migraine without mention of intractable migraine Diabetes mellitus, type 2 ([facility]) Empyema lung ([facility]) 2005 right GI bleeding Hypercholesterolemia Hypertension Hypothyroidism IBS (irritable bowel syndrome) Knee pain Lymphedema Nausea and vomiting Nocturia Obesity Panic anxiety syndrome Pneumonia Pyoderma gangreosum-LE RA (rheumatoid arthritis) ([facility]) Followed by Dr. Becerra Rheumologist in [place] Reflux esophagitis Restless leg syndrome Urinary [...] 50,000 Units by mouth Once a w craig., Disp: , Rfl: LANTUS SOLOSTAR 100 UNIT/ML [...] QUADR W/PRES (PED/ADOL/ADULT) MULTIDOSE 01/27/2017, 02/10/2018 INFLUENZA, H6T4-95, UNSPECIFIED 03/09/2009 INFLUENZA, UNSPECIFIED FORMULATION 04/27/2000, 02/04/2011, [...] Psychiatric: Affect normal. Data: Discharge summary from [facility] in the [facility] references: The patient was subsequently admitted [...] [place] | | | | | | [address] | | | | | | | | +--------+---------+ + + + | 11/05/ | Office | Neurology | Tariq, | | | 2019 | Visit | | [address] | | | | | | [address] [facility], | | | | | | [place] [address] | | | | | | [phone] | | | | | | | [...] Grande MD 09/22/2018 | | | 14:54[facility] | | |physiology. Lung volume testing [...] Navdeep Grande MD 09/22/2018 14:54 | | |[facility] | | + + + [...]
--- OUTSIDE RECORDS SUMMARY | ~2019-09-02 | XMS | Encounter Summary ---
Demographics + + + | Address | [address] | | | [place] [address] | + + + | Home Phone [...] | | | | | [place] [address] | | + + + + + | Robson Min | ECON | Unknown | | + + + + + | Isabella Whitehead | ECON | Unknown | | + + + + + | Seven Neff | ECON | Unknown | | + + + + + Care Team Providers + +------+ + | Care Quality Consultant Name | Role | Phone | [...] | | | | [place], [place] | [address] | | | | | | [address] | Phone: | | | | | | Phone: | [phone] | | | | | | [phone] | Fax: | | | | | | Fax: | [phone] | | | | | | [phone] | | +--------+--------+ + + + + [...] | | | DR KACI [place], | [address] | 2 diabetes mellitus | | | | [place] [address] | | ([facility]) (Primary Dx); | | | | [phone] | | Neck pain, | | | [...] be different from the original. Patient Instructions [facility] Neurology Clinic Dr. Jimbo Samayoa, [...] le, and scrabble, other puzzle games like Unsocialu, [employer]. Play computer/mobile applications such as Ofercity and Lumatix GAMES [employer]ter[employer] and [employer] for neuropathic pain Schedule for Botox injection [...] call MARTHA Matthew or Dr. Samayoa at [facility] Neurology Clinic General Neck and Back [...] are taking other medicines. You may use yyji-hop-jwoxytl medicine to control pain, unless another pain [...] by your healthcare provider Date Last Reviewed: 10/18/201519998819-[address] [employer] [place] [address]. All righ ts reserved. This information is [...] to bend and move. Date Last Reviewed: 08/17/201719995161-6485 [employer]. [address] [place] [address]. All righ ts reserved. This information is [...] use ice several times a day. Medicines Uojd-cvn-bdycoxp pain relieversincludeacetaminophen and anti-inflammatory medicines, wh ich [...] a heating p ad. Date Last Reviewed: 09/17/201719999734-6898 [employer]. [address] [place] [address]. All righ ts reserved. This information is [...] acupuncture, massage, and others. Date Last Reviewed: 03/19/201719999758-9113 [employer]. [address] [place] [address], [place] [address]. All righ ts reserved. This information is [...] massage, and other methods. Date Last Reviewed: 04/19/201719996233-5638 [employer]. [address] [place] [address], [place] [address]. All [facility] ts reserved. This information is not [...] the original. Patient: Kait Min Medical Record: [id number] Date of Services: 06/20/2019 Referring Doctor: Juanito [...] Once a week. Continuous Blood Gluc Sensor (Zimride HUAN 14 DAY SENSOR) MISC diclofenac (VOLTAREN) [...] mg in the evening Respiratory Therapy Supplies [facility] Portable oxygen concentrator to provide O2 at [...] and oriented to time, place, and person. [facility] is fluent. Memory, attention, comprehension, [...] CEREBELLAR EXAMINATION: There is no dysmetria on hcaryv-iq-iazd test. MISCELLANEOUS EXAM: Well Kept, well nourished, [...] le, and scrabble, other puzzle games like Unsocialu, Mahjong. Play computer/mobile applications such as Ofercity and Lumatix GAMES Hobbya and cymbalta for neuropathic pain Schedule for [...] call MARTHA Matthew or Dr. Samayoa at [facility] Neurology Clinic Jimbo Samayoa MD06/20/201910:01 AM Electronically signed NOTE: Part of this report was transcribed using voice recognition software. Every effort was made to ensure accuracy. However, inadvertent computerize sash sticker errors may be present documented in this [...] | | | | | | [place] [address] | | | | | | [phone] | | | | | | | [...] | | Sincerely, Jimbo Samayoa M.D. Neurologist [phone] | | | Electronically signed | | [...]
--- OUTSIDE RECORDS SUMMARY | ~2019-09-02 | XMS | Encounter Summary ---
Demographics + + + | Address | [address] | | | [place] [address] | + + + | Home Phone [...] | | | | | [place] [address] | | + + + + + Care Team Providers + +------+ + | Care Train System Operator Name | Role | Phone | [...] | | | | | Physician's | [place], [place] | | | | | Bk, 2nd floor | [address] | | | | | [place], [place] | [phone] | | | | | [address] | | | | | | [phone] | | | +--------+ + + + [...] | | + +---------+ + + | [facility] DEPARTMENT OF | | | | | RADIOLOGY | | | | + +---------+ + + documented in this encounter Visit Diagnoses Not on filedocumented in this encounter"
--- OUTSIDE RECORDS SUMMARY | ~2019-09-02 | XMS | Encounter Summary ---
Demographics + + + | Address | [address] | | | [place] [address] | + + + | Home Phone [...] | | | | | [place] [address] | | + + + + + | Robson Min | ECON | Unknown | | + + + + + | Isabella Whitehead | ECON | Unknown | | + + + + + | Seven Neff | ECON | Unknown | | + + + + + Care Team Providers + +------+ + | Care Headwaitress Name | Role | Phone | + [...] [address] | | | | | [place] [address] | | | | | | [phone] | | | +--------+ + + + [...] [place] | | | | | | [address] | | | | | | | | +--------+---------+ + + + | 11/05/ | Office | Neurology | Tariq, | | | 2019 | Visit | | [address]A [address] | | | | | | [address] [place], | | | | | | [place] [address] | | | | | | [phone] | | | | | | | | +--------+---------+ + + + documented as of this encounter Visit Diagnoses Not on filedocumented in this encounter"
--- OUTSIDE RECORDS SUMMARY | ~2019-09-02 | XMS | Encounter Summary ---
Demographics + + + | Address | [address] | | | [place] [address] | + + + | Home Phone [...] | | | | | [place] [address] | | + + + + + | Robson Min | ECON | Unknown | | + + + + + | Isabella Whitehead | ECON | Unknown | | + + + + + | Seven Neff | ECON | Unknown | | + + + + + Care Team Providers + +------+ + | Care Microbiology Lab Assistant Name | Role | Phone | [...] RN | Alveolar | | | | [place], | | hypoventilation | | | | [place] [address] | | | | | | [phone] | | | +--------+ + + + [...] [place] | | | | | | [address] | | | | | | | | +--------+---------+ + + + | 11/05/ | Office | Neurology | Tariq, | | | 2019 | Visit | | [address] | | | | | | [address] [place], | | | | | | [place] [address] | | | | | | [phone] | | | | | | | | +--------+---------+ + + + documented as of this encounter Visit Diagnoses + + | Diagnosis | + + | COPD, mild (HCC) Chronic airway obstruction, not elsewhere classified | + + | Alveolar hypoventilation Other dyspnea and respiratory abnormality | + + documented in this encounter"
--- OUTSIDE RECORDS SUMMARY | ~2019-09-02 | XMS | Encounter Summary ---
Demographics + + + | Address | [address] | | | [place] [address] | + + + | Home Phone [...] | | | | | [place] [address] | | + + + + + Care Team Providers + +------+ + | Care Bridge Attacher Name | Role | Phone | + [...] as of this encounter Discharge Summaries Interface, [facility] - 10/10/2005 1:[address] [address] [facility] MEDICAL SUMMARY OF HOSPITALIZATION Med Rec [...] transferred from an outside hospital on the [facility]. She initially presented to the emergency department [...] 3. Synthroid 300 mcg p.o. everyday. 4. Parfl-Kac-Tdkobn one tablet p.o. everyday. 5. Vioxx 25 [...] AR:y00 FAX: BART ELMORE MD OFFICE NUMBER [phone] signed by Interface, [facility] at 10/10/2005 1:11 AM PDTdoc umented in this encounter Plan of Treatment Not on filedocumented as of this encounter Visit Diagnoses Not on filedocumented in this encounter"
--- OUTSIDE RECORDS SUMMARY | ~2019-09-02 | XMS | Encounter Summary ---
Demographics + + + | Address | [address] | | | [place] [address] | + + + | Home Phone [...] | | | | | [place] [address] | | + + + + + Care Team Providers + +------+ + | Care Reptile Keeper Name | Role | Phone | + +------+ + PCP | Unavailable | + +------+ + Encounter Details +--------+ + + + + | Date | Type | Department | Care Team | Description | +--------+ + + + + | 10/28/ | Respiratory | | Other, Faculty | | | 2006 | Therapy | | [phone] | | +--------+ + + + + [...] [facility] | [address] | [place], [place] | | | DIAGNOSTICS - | [place] | [address] | | | PULMONARY FUNCTION | | | | + + + + + documented in this encounter Visit Diagnoses Not on filedocumented in this encounter"
--- OUTSIDE RECORDS SUMMARY | ~2019-09-02 | XMS | Encounter Summary ---
Demographics + + + | Address | [address] | | | [place] [address] | + + + | Home Phone [...] | | | | | [place] [address] | | + + + + + | Robson Min | ECON | Unknown | | + + + + + | Isabella Whitehead | ECON | Unknown | | + + + + + | Seven Neff | ECON | Unknown | | + + + + + Care Team Providers + +------+ + | Care Gamewell Operator Name | Role | Phone | + +------+ + | Juanito Avery PCP | | + +------+ + Encounter Details +--------+--------+ + + + | Date | Type | Department | Care Team | Description | +--------+--------+ + + + | 03/04/ | Intake | [facility] | | N/A | | 2020 | | [address] | | | | | | [address] | | | | | | [place] | | | | | | [address] | | | | | | [phone] | | | +--------+--------+ + + + [...] [place] | | | | | | [address] | | | | | | | | +--------+---------+ + + + | 11/05/ | Office | Neurology | Tariq, | | | 2019 | Visit | | [address] | | | | | | [address] [facility] [place], | | | | | | [place] [address] | | | | | | [phone] | | | | | | | [...]
--- OUTSIDE RECORDS SUMMARY | ~2019-09-02 | XMS | Encounter Summary ---
Demographics + + + | Address | [address] | | | [place] [address] | + + + | Home Phone [...] | | | | | [place] [address] | | + + + + + | Robson Min | ECON | Unknown | | + + + + + | Isabella Whitehead | ECON | Unknown | | + + + + + | Seven Neff | ECON | Unknown | | + + + + + Care Team Providers + +------+ + | Care Real Estate Investor Name | Role | Phone | + [...] | MED CTR EXTERNAL | MD [address] | | | | | IMAGING [address] | [address] | | | | | [address] | [place] [address] | | | | | [place] [address] | | | | | | [phone] | | | +--------+ + + + [...] [place] | | | | | | [address] | | | | | | | | +--------+---------+ + + + | 11/05/ | Office | Neurology | Tariq, | | | 2019 | Visit | | [address] | | | | | | [address] [place], | | | | | | [place] [address] | | | | | | [phone] | | | | | | | [...]
--- OUTSIDE RECORDS SUMMARY | ~2019-09-02 | XMS | Clinical Summary ---
Demographics + + + | Address | [address] | | | [place] [address] | + + + | Home Phone | | + + + | Preferred Language | Unknown | + + + | Marital Status | Single | + + + | Yarsani Affiliation | Unknown | + + + | Race | Unknown | + + + | Ethnic Group | Unknown | + + + Author + + + | Author | [employer] [email or web address] (Historical as of | | | 12-03-18) | + + + | Organization | [email or web address] (Historical as of | | | 12-03-18) [...] Team Providers + +------+ + | Care Carpet Layer Helper Name | Role | Phone | [...] | | | | Activ | | ufcwfelath-zvxbrea-w | mouth every 4 (four) | | [...] +------+-------+ + | MEDICAID | JOSEER | [id number] | | | [address] | | | N | | | | [place] | | | [place] | | | | [address] | | | GROUP SOCIAL WORKER | | | | | + +--------+ [...] | kristy | | | [phone] | [phone] | + +--------+ +--------+ + +
--- OUTSIDE RECORDS SUMMARY | ~2019-09-02 | XMS | Encounter Summary ---
Demographics + + + | Address | [address] | | | [place] [address] | + + + | Home Phone [...] | | | | | [place] [address] | | + + + + + | Robson Min | ECON | Unknown | | + + + + + | Isabella Whitehead | ECON | Unknown | | + + + + + | Seven Neff | ECON | Unknown | | + + + + + Care Team Providers + +------+ + | Care Head Correction Officer Name | Role | Phone | [...] CRUZ | | | | | | [facility] [place] [place] | | | | | | [address] | | | | | | [phone] | | | +--------+ + + + [...] [place] | | | | | | [address] | | | | | | | | +--------+---------+ + + + | 11/05/ | Office | Neurology | Tariq, | | | 2019 | Visit | | [address] | | | | | [address] [place], | | | | | | [place] [address] | | | | | | [phone] | | | | | | | | +--------+---------+ + + + documented as of this encounter Visit Diagnoses + + | Diagnosis | + + | Palpitations | + + documented in this encounter
--- OUTSIDE RECORDS SUMMARY | ~2019-09-02 | XMS | Encounter Summary ---
Demographics + + + | Address | [address] | | | [place] [address] | + + + | Home Phone [...] | | | | | [place] [address] | | + + + + + Care Team Providers + +------+ + | Care Mixer Lever Operator Name | Role | Phone | + +------+ + PCP | Unavailable | + +------+ + Encounter Details +--------+ + + + + | Date | Type | Department | Care Team | Description | +--------+ + + + + | 12/07/ | Results | [facility] | Kacy Caba, | | | 2002 | Only | Medicine at [facility] | [address] | | | | | [address] | [address] | | | | | [address] | [place] [address] | | | | | Mailcode: BAUTISTA Stewart | | | | | | [address] | | | | | | [place], [place] | | | | | | [address] | | | | | | [phone] | | | +--------+ + + + [...] | | + +---------+ + + | [facility] DEPARTMENT OF | | | | | RADIOLOGY | | | | + +---------+ + + documented in this encounter Visit Diagnoses Not on filedocumented in this encounter"
[~2019-09-02 06:36] MED LIST changes: +AMITIZA24 MCG PO; +ATORVASTATIN CA20 MG PO; +AZULFIDINE500 M1 PO; +BASAGLAR K100 UNIT/1 SUB-Q; +BENADRYL25 MG PO; +BRINTELLIX20 MG PO; +BUSPIRONE HCL30 MG PO; +BUTRANS1 EAC1 TOP; +CATAPRES-TTS 31 EACH TOP; +COLACE100 MG PO; +GEODON80 MG PO; +JANUVIA100 MG PO; +TOPROL XL50 MG PO; +TORSEMIDE20 MG PO; +VITAMIN D21250 MCG PO; +ZANAFLEX4 M1 PO; +ZOFRAN4 MG PO
--- OUTSIDE RECORDS SUMMARY | 2019-09-02 06:38 | XMS ---
PreManage Notification: CARLINE ESCOBAR Security Quality Assurance Monitor Body Events No recent Security Events currently on file CRITERIA MET - [facility] - Has Care Guidelines - History of Sepsis Dx - PDMP CARE PROVIDERS [facility] 11/03/2018-Current PHONE: [phone] FRANNIE MARTÍNEZ Physician Drywall Finishing Foreman 06/15/2018-Current PHONE: [phone] Katerine Smith Hot Tar Roofer/Aeronautics Commission Director 01/23/2019-Current PHONE: [phone] Guidelines Source: [facility] [place] Guidelines Date: 08/15/2018 Care Coordination: Currently engaged in mental health services with CDP.\T\nbsp; Please contact CDP with mental health concerns.\T\nbsp; Yane/Akbar Bo: \T\nbsp; [phone]\T\nbsp; Katie:\T\nbsp; [address]. E.D. VISIT COUNT (12 MO.) 1 [facility] 6 ALFREDO Palmer TOTAL 7 NOTE: Visits indicate total known visits. ED/C VISIT TRACKING (12 MO.) 09/02/2019 06:37 [facility] [place] TYPE: Emergency COMPLAINT: - CHEST PAIN, SOB 06/21/2019 11:11 ALFREDO Bianchi TYPE: Emergency COMPLAINT: - CONFUSION DIAGNOSES: - Chronic obstructive pulmonary disease, unspecified - MCC (current) use of oral hypoglycemic drugs - Respiratory failure, unspecified, unspecified whether with hy - Type 2 diabetes mellitus without complications - Nicotine dependence, unspecified, uncomplicated - Other superintendent container terminal (current) drug therapy - Disorientation, unspecified 05/03/2019 06:39 ALFREDO Bianchi TYPE: Emergency COMPLAINT: - HEADACHE/NAUSEA DIAGNOSES: - Dependence on supplemental oxygen - moth exterminator (current) use of insulin - Other nonmedicinal substance allergy status - Hypothyroidism, unspecified - Calculus of gallbladder with chronic cholecystitis without ob - Essential (primary) hypertension - Chronic obstructive pulmonary disease, unspecified - Nicotine dependence, unspecified, uncomplicated - Type 2 diabetes mellitus without complications - Other retirement (current) drug therapy - Headache - Rheumatoid arthritis, unspecified - Allergy status to other antibiotic agents status - Allergy status to other drugs, medicaments and biological sub 04/18/2019 11:30 [facility] TYPE: Emergency DIAGNOSES: - Non-ST elevation (NSTEMI) myocardial infarction - Chronic obstructive pulmonary disease with (acute) exacerbati - Chest pain, unspecified - Chest Pain 04/18/2019 07:01 ALFRED[facility] Rick [place] TYPE: Emergency COMPLAINT: - LOW BLOOD SUGAR, SOB DIAGNOSES: - Nicotine dependence, unspecified, uncomplicated - Chronic obstructive pulmonary disease, unspecified - Bipolar disorder, unspecified - Shortness of breath - Essential (primary) hypertension - Non-ST elevation (NSTEMI) myocardial infarction - Allergy status to other drugs, medicaments and biological sub - Allergy status to other antibiotic agents status - Type 2 diabetes mellitus without complications - Other retirement (current) drug therapy - Hypothyroidism, unspecified - Other nonmedicinal substance allergy status - moth exterminator (current) use of insulin 11/29/2018 16:35 AL[facility] Rick [place] TYPE: Emergency COMPLAINT: - SOB DIAGNOSES: - Rheumatoid arthritis, unspecified - Local infection of the skin and subcutaneous tissue, unspecif - Chronic obstructive pulmonary disease, unspecified - Nicotine dependence, unspecified, uncomplicated - Allergy status to other drugs, medicaments and biological sub - Anxiety disorder, unspecified - Type 2 diabetes mellitus without complications - moth exterminator (current) use of insulin - Other superintendent container terminal (current) drug therapy - Other nonmedicinal substance allergy status - Allergy status to other antibiotic agents status - Hypothyroidism, unspecified - Bipolar disorder, unspecified - Pruritus, unspecified - Essential (primary) hypertension 11/02/2018 14:25 ALFR[facility] Rick [place] TYPE: Emergency COMPLAINT: - HEADACHE, VOMITING DIAGNOSES: - Headache - Type 2 diabetes mellitus without complications - Bipolar disorder, unspecified - Allergy status to other drugs, medicaments and biological sub - Post-traumatic stress disorder, unspecified - Other superintendent container terminal (current) drug therapy - Migraine, unspecified, not intractable, without status migrai - Other nonmedicinal substance allergy status - Essential (primary) hypertension - Chronic obstructive pulmonary disease, unspecified - Allergy status to other antibiotic agents status - moth exterminator (current) use of insulin - Nicotine dependence, unspecified, uncomplicated INPATIENT VISIT TRACKING (12 MO.) 06/21/2019 19:35 [facility] [place] TYPE: Cardiology DIAGNOSES: - Insomnia, unspecified - Bipolar disorder, unspecified - RESPIRATORY FAILURE - Anxiety disorder, unspecified - Chronic obstructive pulmonary disease, unspecified - Bipolar II disorder - Cerebral edema - Delirium due to known physiological condition - Other superintendent container terminal (current) drug therapy 05/03/2019 15:33 Angelyaugusto Ranjana [place] TYPE: Medical Surgical COMPLAINT: - CHOLECYSTITIS [facility]2019 [facility] DIAGNOSES: - Chest pain, unspecified - Non-ST elevation (NSTEMI) myocardial infarction - Chronic obstructive pulmonary disease with (acute) exacerbati [email or web address]
--- NOTE | 2019-09-02 12:31 | EKG ---
[facility] [address] [place], [place] [address] Signed Normal sinus rhythm Possible Left atrial enlargement Incomplete right bundle branch block Left anterior fascicular block Left ventricular hypertrophy Abnormal ECG Confirmed by ADIEL GROVE DO ([id number]) on 09/02/2019 12:31:05 PM Electronically Signed By: ADIEL GROVE DO 09/02/19 1231 PATIENT NAME: CARLINE ESCOBAR MICHAEL Electrocardiogram DATE OF : 72 PHYSICIAN: ADIEL GROVE DO REPORT #: [id number] REPORT IS CONFIDENTIAL AND NOT TO BE RELEASED WITHOUT AUTHORIZATION
== END 2019-09-02 11:49 | disposition home or self-care (01) ==
LOC: ED 06:36
DX: R07.9 Chest pain, unspecified (principal); M06.9 Rheumatoid arthritis, unspecified; E11.9 Type 2 diabetes mellitus without complications; I10 Essential (primary) hypertension; E03.9 Hypothyroidism, unspecified; J44.9 Chronic obstructive pulmonary disease, unspecified; I25.2 Old myocardial infarction; F17.200 Nicotine dependence, unspecified, uncomplicated; Z91.048 Other nonmedicinal substance allergy status; Z88.1 Allergy status to other antibiotic agents; Z79.899 Other long term (current) drug therapy
CPT/HCPCS: 36415; 71045; 80053; 81001; 83735; 84484; 85025; 93005; 93010; 96374; 99285-25; J2060

== ENCOUNTER 2019-10-02 18:54 | Emergency (ER) | payer OTHER ==
[~2019-10-02] VITALS: Ht 165.1 cm; Wt 113.4 kg
--- OUTSIDE RECORDS SUMMARY | 2019-10-02 18:58 | XMS ---
PreManage Notification: CARLINE ESCOBAR Security Zigzag Elastic Attacher Events No recent Security Events currently on file CRITERIA MET - 6 ED Visits in 6 Months - [facility] - Has Care Guidelines - History of Sepsis Dx - PDMP - [facility] - 2 Visits in 30 Days CARE PROVIDERS ADELE TIDWELL [facility] 11/03/2018-Current PHONE: [phone] FRANNIE MARTÍNEZ Physician Hospital Chaplain 06/15/2018-Current PHONE: [phone] Katerine Smith Mortgage Loan Specialist/Hospital Chaplain 01/23/2019-Current PHONE: [phone] Guidelines [facility] Guidelines Date: 08/15/2018 Care Coordination: Currently engaged in mental health services with [employer].\T\nbsp; Please contact [employer] with mental health concerns.\T\nbsp; Yane/Akbar Bo: \T\nbsp; [phone]\T\nbsp; Katie:\T\nbsp; [phone]. E.D. VISIT COUNT (12 MO.) 1 [facility] 7 [place]FR[place] TOTAL 8 NOTE: Visits indicate total known visits. ED/UCC VISIT TRACKING (12 MO.) 10/02/2019 18:55 [place] TYPE: Emergency COMPLAINT: - R WRIST PAIN/INJ 09/02/2019 06:37 [place] TYPE: Emergency COMPLAINT: - CHEST PAIN, SOB DIAGNOSES: - Essential (primary) hypertension - Old myocardial infarction - Allergy status to other antibiotic agents status - Other nonmedicinal substance allergy status - Chest pain, unspecified - Type 2 diabetes mellitus without complications - Other buttermaker helper (current) drug therapy - Hypothyroidism, unspecified - Rheumatoid arthritis, unspecified - Nicotine dependence, unspecified, uncomplicated - Chronic obstructive pulmonary disease, unspecified 06/21/2019 11:11 [place] TYPE: Emergency COMPLAINT: - CONFUSION DIAGNOSES: - Chronic obstructive pulmonary disease, unspecified - terminal system operator (current) use of oral hypoglycemic drugs - Respiratory failure, unspecified, unspecified whether with hy - Type 2 diabetes mellitus without complications - Nicotine dependence, unspecified, uncomplicated - Other buttermaker helper (current) drug therapy - Disorientation, unspecified 05/03/2019 06:39 [place] TYPE: Emergency COMPLAINT: - HEADACHE/NAUSEA DIAGNOSES: - Dependence on supplemental oxygen - skilled nursing (current) use of insulin - Other nonmedicinal substance allergy status - Hypothyroidism, unspecified - Calculus of gallbladder with chronic cholecystitis without ob - Essential (primary) hypertension - Chronic obstructive pulmonary disease, unspecified - Nicotine dependence, unspecified, uncomplicated - Type 2 diabetes mellitus without complications - Other buttermaker helper (current) drug therapy - Headache - Rheumatoid arthritis, unspecified - Allergy status to other antibiotic agents status - Allergy status to other drugs, medicaments and biological sub 04/18/2019 11:30 [facility] TYPE: Emergency DIAGNOSES: - Non-ST elevation (NSTEMI) myocardial infarction - Chronic obstructive pulmonary disease with (acute) exacerbati - Chest pain, unspecified - Chest Pain 04/18/2019 07:01 ALFREDO Bianchi TYPE: Emergency COMPLAINT: - LOW BLOOD SUGAR, [...] 2 diabetes mellitus without complications - Other buttermaker helper (current) drug therapy - Hypothyroidism, unspecified - Other nonmedicinal substance allergy status - skilled nursing (current) use of insulin 11/29/2018 16:35 ALFRED[place] Rick [place] TYPE: Emergency COMPLAINT: - SOB DIAGNOSES: - Rheumatoid arthritis, unspecified - Local infection of the skin and subcutaneous tissue, unspecif - Chronic obstructive pulmonary disease, unspecified - Nicotine dependence, unspecified, uncomplicated - Allergy status to other drugs, medicaments and biological sub - Anxiety disorder, unspecified - Type 2 diabetes mellitus without complications - skilled nursing (current) use of insulin - Other jail (current) drug therapy - Other nonmedicinal substance [...] - Post-traumatic stress disorder, unspecified - Other jail (current) drug therapy - Migraine, unspecified, not intractable, without status migrai - Other nonmedicinal substance allergy status - Essential (primary) hypertension - Chronic obstructive pulmonary disease, unspecified - Allergy status to other antibiotic agents status - skilled nursing (current) use of insulin - Nicotine dependence, unspecified, uncomplicated INPATIENT VISIT TRACKING (12 MO.) 06/21/2019 19:35 [facility] TYPE: Cardiology DIAGNOSES: - Insomnia, unspecified - Bipolar disorder, unspecified - RESPIRATORY FAILURE - Anxiety disorder, unspecified - Chronic obstructive pulmonary disease, unspecified - Bipolar II disorder - Cerebral edema - Delirium due to known physiological condition - Other buttermaker helper (current) drug therapy 05/03/2019 15:33 Laine MOORE TYPE: Medical Surgical COMPLAINT: - CHOLECYSTITIS [facility] [facility] [address] DIAGNOSES: - Chest pain, unspecified - Non-ST elevation (NSTEMI) myocardial infarction - Chronic obstructive pulmonary disease with (acute) exacerbati [id number]
[2019-10-02] MEDS ORDERED: TREXALL15 MG PO (19:25)
== END 2019-10-02 20:28 | disposition home or self-care (01) ==
LOC: ED 18:54
DX: S63.501A Unspecified sprain of right wrist, initial encounter (principal); M06.9 Rheumatoid arthritis, unspecified; E11.9 Type 2 diabetes mellitus without complications; I10 Essential (primary) hypertension; E03.9 Hypothyroidism, unspecified; J44.9 Chronic obstructive pulmonary disease, unspecified; I25.2 Old myocardial infarction; F17.200 Nicotine dependence, unspecified, uncomplicated; Z91.048 Other nonmedicinal substance allergy status; Z88.1 Allergy status to other antibiotic agents; Z79.899 Other long term (current) drug therapy; X58.XXXA Exposure to other specified factors, initial encounter
CPT/HCPCS: 73110; 99283-25

== ENCOUNTER 2019-12-31 11:56 | Emergency (ER) | payer OTHER ==
[~2019-12-31] VITALS: Ht 165.1 cm; Wt 113.4 kg
[~2019-12-31 11:56] MED LIST changes: +TREXALL15 MG PO
--- OUTSIDE RECORDS SUMMARY | 2019-12-31 12:00 | XMS ---
PreManage Notification: CARLINE ESCOBAR Security Jinrikisha Driver Events No recent Security Events currently on file CRITERIA MET - [facility] - Has Care Guidelines - History of Sepsis Dx - PDMP CARE PROVIDERS DIANN [facility] 11/03/2018-Current PHONE: [phone] FRANNIE MARTÍNEZ Physician Firefighter 06/15/2018-Current PHONE: [phone] Katerine Smith Site Supervisor/Design Maintenance Engineer 01/23/2019-Current PHONE: [phone] Guidelines Source: [facility] Guidelines Date: 08/15/2018 Care Coordination: Currently engaged in mental health services with [facility].\T\nbsp; Please contact [facility] with mental health concerns.\T\nbsp; Yane/Akbar Bo: \T\nbsp; [phone]\T\nbsp; Katie:\T\nbsp; [phone]. E.D. VISIT COUNT (12 MO.) 1 [facility] 6 ALFREDO Palmer TOTAL 7 NOTE: Visits indicate total known visits. ED/C VISIT TRACKING (12 MO.) 12/31/2019 11:57 [facility] [place] TYPE: Emergency COMPLAINT: - HEADACHE 10/02/2019 18:55 [facility] [place] TYPE: Emergency COMPLAINT: - R WRIST PAIN/INJ DIAGNOSES: - Rheumatoid arthritis, unspecified - Hypothyroidism, unspecified - Essential (primary) hypertension - Exposure to other specified factors, initial encounter - Chronic obstructive pulmonary disease, unspecified - Pain in right wrist - Old myocardial infarction - Nicotine dependence, unspecified, uncomplicated - Allergy status to other antibiotic agents status - Other half-way (current) drug therapy - Other nonmedicinal substance allergy status - Unspecified sprain of right wrist, initial encounter - Type 2 diabetes mellitus without complications 09/02/2019 06:37 [facility] [place] TYPE: Emergency COMPLAINT: - CHEST PAIN, SOB DIAGNOSES: - Essential (primary) hypertension - Old myocardial infarction - Allergy status to other antibiotic agents status - Other nonmedicinal substance allergy status - Chest pain, unspecified - Type 2 diabetes mellitus without complications - Other half-way (current) drug therapy - Hypothyroidism, unspecified - Rheumatoid arthritis, unspecified - Nicotine dependence, unspecified, uncomplicated - Chronic obstructive pulmonary disease, unspecified 06/21/2019 11:11 [facility] [place] TYPE: Emergency COMPLAINT: - CONFUSION DIAGNOSES: - Chronic obstructive pulmonary disease, unspecified - injection molder (current) use of oral hypoglycemic drugs - Respiratory failure, unspecified, unspecified whether with hy - Type 2 diabetes mellitus without complications - Nicotine dependence, unspecified, uncomplicated - Other water trainer (current) drug therapy - Disorientation, unspecified 05/03/2019 06:39 ALFREDO Bianchi TYPE: Emergency COMPLAINT: - HEADACHE/NAUSEA DIAGNOSES: - Dependence on supplemental oxygen - injection molder (current) use of insulin - Other nonmedicinal substance allergy status - Hypothyroidism, unspecified - Calculus of gallbladder with chronic cholecystitis without ob - Essential (primary) hypertension - Chronic obstructive pulmonary disease, unspecified - Nicotine dependence, unspecified, uncomplicated - Type 2 diabetes mellitus without complications - Other water trainer (current) drug therapy - Headache - Rheumatoid arthritis, unspecified - Allergy status to other antibiotic agents status - Allergy status to other drugs, medicaments and biological sub 04/18/2019 11:30 [facility] TYPE: Emergency DIAGNOSES: - Non-ST elevation [...] 2 diabetes mellitus without complications - Other half-way (current) drug therapy - Hypothyroidism, unspecified - Other nonmedicinal substance allergy status - senior care (current) use of insulin INPATIENT VISIT TRACKING (12 MO.) 06/21/2019 19:35 [facility] TYPE: Cardiology DIAGNOSES: - Insomnia, unspecified - Bipolar disorder, unspecified - RESPIRATORY FAILURE - Anxiety disorder, unspecified - Chronic obstructive pulmonary disease, unspecified - Bipolar II disorder - Cerebral edema - Delirium due to known physiological condition - Other water trainer (current) drug therapy 05/03/2019 15:33 [facility] TYPE: Medical Surgical COMPLAINT: - CHOLECYSTITIS 04/18/2019 11:30 [facility] Alan MOORE TYPE: Internal Medicine DIAGNOSES: - Chest pain, unspecified - Non-ST elevation (NSTEMI) myocardial infarction - Chronic obstructive pulmonary disease with (acute) exacerbati [email or web address]
== END 2019-12-31 14:36 | disposition home or self-care (01) ==
LOC: ED 11:56
DX: R51 Headache (principal); E11.9 Type 2 diabetes mellitus without complications; I10 Essential (primary) hypertension; E03.9 Hypothyroidism, unspecified; J44.9 Chronic obstructive pulmonary disease, unspecified; F31.9 Bipolar disorder, unspecified; F43.10 Post-traumatic stress disorder, unspecified; F17.200 Nicotine dependence, unspecified, uncomplicated; Z88.1 Allergy status to other antibiotic agents; Z88.8 Allergy status to other drugs, medicaments and biological substances; Z91.048 Other nonmedicinal substance allergy status; Z79.899 Other long term (current) drug therapy; Z79.4 Long term (current) use of insulin
CPT/HCPCS: 96361; 96374; 96375; 99283-25; J1885; J2765; J7030

== ENCOUNTER 2020-01-18 21:10 | Emergency (ER) | payer OTHER ==
[~2020-01-18] VITALS: Ht 165.1 cm; Wt 117.9 kg
--- OUTSIDE RECORDS SUMMARY | 2020-01-18 21:14 | XMS ---
PreManage Notification: CARLINE ESCOBAR Security Biologics Specialist Events No recent Security Events currently on file CRITERIA MET - [facility] - Has Care Guidelines - History of Sepsis Dx - PDMP - [facility] - 2 Visits in 30 Days CARE PROVIDERS ADELE TIDWELL [facility] 11/03/2018-Current PHONE: [phone] FRANNIE MARTÍNEZ Physician Radiator Repairer 06/15/2018-Current PHONE: [phone] UMESH HUTCHINSON M, Anesthesiology 01/01/2020-Current () PHONE: Unknown Katerine Smith B[place]mer Bottom Maker/Programming Coordinator 01/23/2019-Current PHONE: [phone] Guidelines Source: [employer] [place] Guidelines Date: 08/15/2018 Care Coordination: Currently engaged in mental health services with [facility].\T\nbsp; Please contact [facility] with mental health concerns.\T\nbsp; Yane/Akbar Bo: \T\nbsp; [phone]\T\nbsp; Katie:\T\nbsp; [phone]. E.D. VISIT COUNT (12 MO.) [address] [place] TOTAL 8 NOTE: Visits indicate total known visits. ED/UCC VISIT TRACKING (12 MO.) 01/18/2020 21:11 [facility] [place] TYPE: Emergency COMPLAINT: - SOB 12/31/2019 11:57 [facility] [place] TYPE: Emergency COMPLAINT: - HEADACHE DIAGNOSES: - care home (current) use of insulin - Nicotine dependence, unspecified, uncomplicated - Post-traumatic stress disorder, unspecified - Essential (primary) hypertension - Type 2 diabetes mellitus without complications - Headache - Allergy status to other antibiotic agents status - Other nonmedicinal substance allergy status - Bipolar disorder, unspecified - Allergy status to other drugs, medicaments and biological sub - Other group home (current) drug therapy - Hypothyroidism, unspecified - Chronic obstructive pulmonary disease, unspecified 10/02/2019 18:55 [facility] [place] TYPE: Emergency COMPLAINT: - R WRIST PAIN/INJ DIAGNOSES: - Rheumatoid arthritis, unspecified - Hypothyroidism, unspecified - Essential (primary) hypertension - Exposure to other specified factors, initial encounter - Chronic obstructive pulmonary disease, unspecified - Pain in right wrist - Old myocardial infarction - Nicotine dependence, unspecified, uncomplicated - Allergy status to other antibiotic agents status - 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 - Other nonmedicinal substance [...] 2 diabetes mellitus without complications - 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 - Hypothyroidism, unspecified - Rheumatoid arthritis, unspecified - Nicotine dependence, unspecified, uncomplicated - Chronic obstructive pulmonary disease, unspecified 06/21/2019 11:11 [facility] [place] TYPE: Emergency COMPLAINT: - CONFUSION DIAGNOSES: - Chronic obstructive pulmonary disease, unspecified - care home (current) use of oral hypoglycemic drugs - Respiratory failure, unspecified, unspecified whether with hy - Type 2 diabetes mellitus without complications - Nicotine dependence, unspecified, uncomplicated - Other group home (current) drug therapy - Disorientation, unspecified 05/03/2019 06:39 [facility] [place] TYPE: Emergency COMPLAINT: - HEADACHE/NAUSEA DIAGNOSES: - Dependence on supplemental oxygen - care home (current) use of insulin - Other nonmedicinal substance allergy status - Hypothyroidism, unspecified - Calculus of gallbladder with chronic cholecystitis without ob - Essential (primary) hypertension - Chronic obstructive pulmonary disease, unspecified - Nicotine dependence, unspecified, uncomplicated - Type 2 diabetes mellitus without complications - Other group home (current) drug therapy - Headache - Rheumatoid arthritis, unspecified - Allergy status to other antibiotic agents status - Allergy status to other drugs, medicaments and biological sub 04/18/2019 11:30 [facility] TYPE: Emergency DIAGNOSES: - Non-ST elevation (NSTEMI) [...] 2 diabetes mellitus without complications - 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 TYPE: Cardiology DIAGNOSES: - Insomnia, unspecified - Bipolar disorder, unspecified - RESPIRATORY FAILURE - Anxiety disorder, unspecified - Chronic obstructive pulmonary disease, unspecified - Bipolar II disorder - Cerebral edema - Delirium due to known physiological condition - Other group home (current) drug therapy 05/03/2019 15:33 [facility] TYPE: Medical Surgical COMPLAINT: - CHOLECYSTITIS 04/18/2019 11:30 [facility] Alan MO[facility] TYPE: Internal Medicine DIAGNOSES: - Chest pain, unspecified - Non-ST elevation (NSTEMI) myocardial infarction - Chronic obstructive pulmonary disease with (acute) exacerbati [id number]
[2020-01-18] MEDS ORDERED: BUPRENORPHINE HC2 MG SL (21:43)
[2020-01-19] MEDS ORDERED: DOXYCYCLINE HY100 MG PO (00:55)
--- NOTE | 2020-01-19 13:59 | EKG ---
[facility] [address] [place] [address] Signed Sinus tachycardia Possible Left atrial enlargement Incomplete right bundle branch block Left anterior fascicular block Left ventricular hypertrophy with repolarization abnormality Possible Lateral infarct , age undetermined Abnormal ECG When compared with ECG of 02-SEP-2019 06:39, Borderline criteria for Lateral infarct are now present ST now depressed in Lateral leads Confirmed by ADIEL GROVE DO ([id number]) on 01/19/2020 1:59:49 PM Electronically Signed By: ADIEL GROVE DO 01/19/20 1359 PATIENT NAME: CARLINE ESCOBAR Electrocardiogram DATE OF : 72 PHYSICIAN: ADIEL GROVE DO REPORT #: [id number] REPORT IS CONFIDENTIAL AND NOT TO BE RELEASED WITHOUT AUTHORIZATION
== END 2020-01-19 01:13 | disposition home or self-care (01) ==
LOC: ED 21:10
DX: J44.1 Chronic obstructive pulmonary disease with (acute) exacerbation (principal); E11.9 Type 2 diabetes mellitus without complications; I10 Essential (primary) hypertension; E03.9 Hypothyroidism, unspecified; F31.9 Bipolar disorder, unspecified; F43.10 Post-traumatic stress disorder, unspecified; F17.200 Nicotine dependence, unspecified, uncomplicated; Z88.1 Allergy status to other antibiotic agents; Z88.8 Allergy status to other drugs, medicaments and biological substances; Z91.048 Other nonmedicinal substance allergy status; Z79.899 Other long term (current) drug therapy; Z79.4 Long term (current) use of insulin
CPT/HCPCS: 71045; 80053; 85025; 93005; 93010; 99285-25; J1885